=== PATIENT | male | born 1955 | race Caucasian/White ===

== ENCOUNTER 2023-06-16 07:38 | Outpatient (OUT) | payer MEDICARE, OTHER, SELFPAY ==
--- NOTE | 2023-06-16 08:00 | CA_ITS ---
Patient Name: TORSTEN HARMON MR#: [id number] : 1955 Exam Date: 06/16/2023 Ordering Doctor: STANFORD CANTU ECHOCARDIOGRAM REPORT PROCEDURE: CA ECHO DOPPLER COMPLETE INDICATIONS: Heart failure with reduced ejection fraction, CABGx5, AICD, hypertension COMPARISON: None. DESCRIPTION: COMPLETE ECHOCARDIOGRAM Real-time transthoracic echocardiography with 2D, M-mode, spectral and color flow Doppler performed. QUALITY: Technical quality was good. 73 , 238#, BSA 2.32 m2, BP 98/52 LEFT VENTRICLE: Mild dilatation. Proximal septal hypertrophy (sigmoid septum). LV EF: Global left ventricular systolic function is difficult to assess but appears preserved; visually estimated ejection fraction is 50 to 55%. No significant wall motion abnormalities. DIASTOLIC: Diastolic function is indeterminate. ATRIAL SEPTUM: Visually appears intact. LEFT ATRIUM: Mild dilatation. RIGHT ATRIUM: Moderate dilatation. RIGHT VENTRICLE: Normal chamber size. Normal systolic function. Pacer wire present. TRICUSPID VALVE: Normal mobility and thickness. No stenosis with mild to moderate regurgitation. Doppler studies reveal mildly (35-45) elevated right sided pressures. RSVP 41 mmHg MITRAL VALVE: Normal mobility and thickness. No evidence of mitral valve stenosis. There is no mitral annular calcification. Trivial mitral regurgitation. AORTIC VALVE: Normal trileaflet appearance. No visible sclerosis. Normal leaflet mobility. No evidence of aortic valve stenosis. Trivial aortic regurgitation. AORTIC ROOT: Normal diameter and appearance. PULMONIC VALVE: Normal thickness and mobility. No stenosis. Trivial regurgitation. PERICARDIUM: Anterior free space; trivial effusion versus fat pad IVC: Collapses with inspirations. IVC is dilated (2.3 cm) CONCLUSION: 1. Global left ventricular systolic function is difficult to assess but appears preserved; visually estimated ejection fraction is 50 to 55% 2. Normal right ventricular size and systolic function 3. Biatrial enlargement 4. Diastolic function is indeterminate 5. No significant valvular abnormalities 6. Anterior free space; trivial effusion versus fat pad Adult Echocardiography Procedure Report Left Ventricle LVEDD (3.7 - 5.6 cm): 5.94 cm LVESD (2.2 - 4.0 cm): 3.88 cm LVIVS thickness (0.6 - 1.2 cm): 1.43 cm LVPW thickness (0.5 - 1.0 cm): 0.88 cm e': 0.13 m/s E - e': 3.57 LVOT Max Gradient: 2.87 mm[Hg] LVOT Area (cm2): 0.85 m/s Peak Velocity (LVOT): 0.85 m/s Mean Velocity (LVOT): 0.60 m/s LVOT Diameter 2.72 cm Left Atrium LA Volume Index (2D A2C): 38.67 ml/m2 Left Atrium Systolic Dimension: 4.31 cm Mitral Valve MV E to A Ratio: 0.72, 0.74 Mitral Valve A-Wave Peak Velocity: 0.62 m/s Mitral Valve E-Wave Peak Velocity: 0.46 m/s Right Ventricle Aorta AO Root Diam: 3.64 cm Ascending Ao Diam: 2.81 cm Aortic Valve AoV Area (Peak Grupo): 4.21 cm2, 4.21 cm2 AoV Area (VTI): 4.11 cm2, 4.11 cm2 Peak Velocity(Antegrade Flow): 1.17 m/s Peak Gradient(Antegrade Flow): 5.50 mm[Hg] Mean Velocity(Antegrade Flow): 0.81 m/s Mean Gradient(Antegrade Flow): 3.00 mm[Hg] Velocity Time Integral: 21.98 cm Tricuspid Valve Peak Velocity (Regurgitant Flow): 2.88 m/s, 2.82 m/s Pulmonic Valve Peak Velocity: 1.09 m/s Peak Gradient: 3.04 mm[Hg], 6.78 mm[Hg] Right Atrium Right Atrium Systolic Pressure: 88.53 ml, 88.53 ml Dictated by: Juanjose Parada M.D. on 06/18/2023 at 13:46 Approved by: Juanjose Parada M.D. on 06/18/2023 at 13:50
== END 2023-06-16 07:39 | disposition home or self-care (01) ==
PROVIDERS: PCP Family Medicine; Visit Provider Nurse Practitioner
DX: I50.22 Chronic systolic (congestive) heart failure (principal)
CPT/HCPCS: 93306

== ENCOUNTER 2023-06-24 13:55 | Emergency (ER) | payer MEDICARE, OTHER, SELFPAY ==
[2023-06-24] VITALS (29 sets, daily range): BP systolic 70–113; BP diastolic 41–88; PULSE 99–128; RESP 13–37; TEMP 36.5; O2SAT 90–95; BMI 32.3
--- NOTE | 2023-06-24 14:06 | ECG_ITS ---
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
[2023-06-24] MEDS: 0.9 % SODIUM CHLORIDE 1,000 ML 1000 ML IV (14:15)
--- NOTE | 2023-06-24 14:18 | ED_ITS ---
HPI - SOB/Dyspnea General Chief Complaint: Shortness of Breath/Dyspnea Stated Complaint: SHORTNESS OF BREATH Time Seen by Provider: 06/24/23 14:06 Source: patient Mode of arrival: Wheelchair Limitations: no limitations History of Present Illness HPI Narrative: Patient is a 67-year-old male who presents to the emergency department for the evaluation of increasing shortness of breath over the last 2 days. Patient has had ongoing issues for the last several weeks with elevated heart rate, low blood pressure. He was taken off of his carvedilol and Entresto by his PCP but the nurse practitioner at [facility] cardiology instructed him to get back on his carvedilol and Entresto. He stopped the carvedilol 2 days ago for low blood pressures at home. He feels dizzy when he stands. He denies chest pain, sputum production or hemoptysis. He has had no objective fevers, vomiting or diarrhea. He denies leg swelling. He had an echo done last week at this facility that was performed routine. He has a history of coronary artery disease and vessel Bypass. He has never been a smoker. He denies any known history of COPD, asthma or emphysema. At time of initial interview, patient is noted to be tachycardic, hypotensive, awake alert and oriented. Related Data Home Medications ?Medication ?Instructions ?Recorded ?Confirmed apixaban 5 mg tablet (Eliquis) 5 mg PO BID 06/24/23 06/24/23 atorvastatin 20 mg tablet 20 mg PO BEDTIME 06/24/23 06/24/23 bumetanide 2 mg tablet 2 mg PO BID 06/24/23 06/24/23 carvedilol 3.125 mg tablet 3.125 mg PO BID 06/24/23 06/24/23 potassium chloride 20 mEq 20 meq PO DAILY 06/24/23 06/24/23 tablet,extended release(part/cryst) Allergies Allergy/AdvReac Type Severity Reaction Status Date / Time No Known Drug Allergies Allergy Verified 06/24/23 14:00 Review of Systems ROS Constitutional Denies: fever or chills Ears, nose, mouth, and throat Denies: throat pain or nasal congestion Cardiovascular Denies: chest pain Respiratory Reports: shortness of breath and cough Gastrointestinal Denies: nausea, vomiting or diarrhea Musculoskeletal Denies: back pain Integumentary/Breast Denies: rash Neurological Denies: headache Hematologic/Lymphatic Denies: easy bruising or easy bleeding Exam Constitutional Vital Signs, click to edit/add: Last Vital Signs Temp 97.7 F 06/24/23 14:00 Pulse 105 H 06/24/23 18:00 Resp 24 06/24/23 18:00 BP 113/72 06/24/23 18:00 Pulse Ox 95 06/24/23 18:00 O2 Del Method Nasal Cannula 06/24/23 14:54 O2 Flow Rate 4 06/24/23 14:54 Course Vital Signs Vital signs: Vital Signs Temperature 97.7 F 06/24/23 14:00 Pulse Rate 125 H 06/24/23 14:00 Respiratory Rate 24 06/24/23 14:00 Blood Pressure 70/41 L 06/24/23 14:00 Pulse Oximetry 91 L 06/24/23 14:00 Oxygen Delivery Method Room Air 06/24/23 14:00 Temperature 97.7 F 06/24/23 14:00 Pulse Rate 105 H 06/24/23 18:00 Respiratory Rate 24 06/24/23 18:00 Blood Pressure 113/72 06/24/23 18:00 Pulse Oximetry 95 06/24/23 18:00 Oxygen Delivery Method Nasal Cannula 06/24/23 14:54 Oxygen Delivery Flow Rate 4 06/24/23 14:54 MDM - SOB/Dyspnea MDM Narrative Medical decision making narrative: On arrival to the emergency department, patient was hypoxic and hypotensive with tachycardia. 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 Lab studies were obtained, breathing treatment given and the patient was placed on oxygen of 4 L by nasal cannula. He had improvement of his oxygen levels, he was noted to have wheezing on exam and was given albuterol and IV fluids for blood pressure control. Patient's blood pressure improved significantly on reevaluation. Sepsis labs were ordered including blood cultures, urine specimen. Chest x-ray shows multifocal pneumonia in the right middle and lower lobes. Patient was treated with IV Levaquin. He remained mildly tachycardic in the ER but did have significant improvement of his blood pressure. He remains awake, alert and oriented in no respiratory distress. Lactic acid is elevated, procalcitonin is normal. Patient had an elevated D-dimer, he was sent for CT angio of the chest. This result shows that the patient has A large mass in the right middle lobe. This was related to him by attending physician. Patient understands that he will need to be transferred to tertiary care facility with pulmonology, cardiothoracic surgery as needed and oncology. This is a new diagnosis for him. He request transfer to [facility]. Transfer line was contacted At [phone]. 1900: Stable vital signs at this time, he is resting comfortably. Repeat troponin and lactic acid were obtained and troponin is normal, lactic acid has decreased. Patient's blood pressure remained stable, improved. Patient was accepted by Dr. Berg, Hospitalist service at [facility]. Critical care time 35-minute Medical Records Attestation: I reviewed the patient's medical records. Lab Data Attestation: I reviewed the patient's lab results. Labs: Lab Results 06/24/23 06/24/23 06/24/23 Range/Units 14:10 14:22 17:30 WBC 22.9 H (4.0-11.0) 10^3/uL RBC 4.59 L (4.70-6.10) 10^6/uL Hgb 13.7 L (14.0-18.0) g/dL Hct 42.8 (42.0-54.0) % MCV 93.2 (80.0-94.0) fL MCH 29.8 (25.9-34.0) pg MCHC 32.0 (29.9-35.2) g/dL RDW 16.7 H (11.0-15.0) % Plt Count 572 H (150-450) 10^3/uL MPV 9.7 (9.5-13.5) fL Seg Neuts % (Manual) 69.0 Lymphocytes % (Manual) 13.0 L (20.5-60.0) % Monocytes % (Manual) 18.0 H (1.7-12.0) % Eosinophils % (Manual) 0.0 L (0.9-7.0) % Basophils % (Manual) 0.0 L (0.2-2.0) % Neutrophils # (Manual) 15.80 H (1.4-6.5) 10^3/uL Lymphocytes # (Manual) 2.97 (1.20-3.80) 10^3/uL Monocytes # (Manual) 4.12 H (0.30-0.80) 10^3/uL Eosinophils # (Manual) 0.00 (0.00-0.70) 10^3/uL Basophils # (Manual) 0.00 (0.00-0.10) 10^3/uL PT 15.4 H (9.0-11.6) sec INR 1.49 D-Dimer 6.20 H* (<=0.59) mg/L FEU VBG pH 7.433 H (7.330-7.430) VBG pCO2 35.1 L (40.0-52.0) mmHg Sodium 132 L (136-145) mmol/L Potassium 3.8 (3.5-5.1) mmol/L Chloride 96 L (98-107) mmol/L Carbon Dioxide 22.6 (21.0-32.0) mmol/L Anion Gap 17.2 BUN 23.0 H (7.0-18.0) mg/dL Creatinine 1.09 (0.70-1.30) mg/dL Est GFR ( Amer) >60 (>=60) Est GFR (Non-Af Amer) >60 (>=60) BUN/Creatinine Ratio 21.1 Glucose 125 H (74-106) mg/dL Lactate 4.4 H* 2.3 H* (0.4-2.0) mmol/L Calcium 9.1 (8.5-10.1) mg/dL Magnesium 1.8 (1.8-2.4) mg/dL Total Bilirubin 0.7 (0.2-1.0) mg/dL AST 42 H (15-37) U/L ALT 42 (16-63) U/L Alkaline Phosphatase 154 H (46-116) U/L Troponin I High Sens 26.4 19.7 (4.0-76.1) pg/mL NT-Pro-B Natriuret Pep 535.0 (<=900.0) pg/mL Total Protein 6.6 (6.4-8.2) g/dL Albumin 1.5 L (3.4-5.0) g/dL Globulin 5.1 g/dL Albumin/Globulin Ratio 0.3 Procalcitonin 0.19 (0.00-0.50) ng/mL Adenovirus (PCR) Not detected (NOT DETECTE) C. pneumoniae DNA (PCR) Not detected (NOT DETECTE) Coronavirus Type OC43 Not detected (NOT DETECTE) Coronavirus Type HKU1 Not detected (NOT DETECTE) Coronavirus Type 229E Not detected (NOT DETECTE) Coronavirus Type NL63 Not detected (NOT DETECTE) Human Metapneumovir PCR Not detected (NOT DETECTE) M. pneumoniae (PCR) Not detected (NOT DETECTE) Parainfluenza PCR Not detected (NOT DETECTE) Parainfluenza 2 (PCR) Not detected (NOT DETECTE) Parainfluenza 3 (PCR) Not detected (NOT DETECTE) Parainfluenza 4 (PCR) Not detected (NOT DETECTE) RSV (RT-PCR) Not detected (NOT DETECTE) Entero/Rhino (PCR) Not detected (NOT DETECTE) SARS-CoV-2 (PCR) Not detected (NOT DETECTE) Bordetella pertussis (PCR) Not detected (NOT DETECTE) B parapertussis DNA PCR Not detected (NOT DETECTE) Influenza Type A (PCR) Not detected (NOT DETECTE) Influenza Type B (PCR) Not detected (NOT DETECTE) Imaging Data CT scan - chest: Attestation: I have reviewed the pertinent imaging results. Radiologist's impression: ITS Impressions Chest X-Ray 06/24/23 14:32 IMPRESSION: 1. Suspect moderate right middle lobe and mild left basilar infiltrates/pneumonia. 2. Suspect small bilateral pleural effusions. Electronically authenticated by: GIGI MURRY Date: 06/24/2023 14:47 Chest CTA 06/24/23 17:24 IMPRESSION: No CT findings to suggest pulmonary embolism. Large masslike lesions at the right hilar and subcarinal region compatible with malignancy, with numerous, pathologically enlarged mediastinal, upper abdominal and paraesophageal lymph nodes seen. Moderate right pleural effusion. Electronically authenticated by: SONDRA SEAY Date: 06/24/2023 18:10 ECG Data Attestation: I personally reviewed and interpreted this ECG as follows: (Sinus tachycardia at a rate of 127, occasional PVC, no acute ST elevation. EKG reviewed by attending physician) Critical Care Time Critical Care Time Critical Care Time: Yes Total Critical Care Time: 35 Attestation: 35 min Of critical care time for treatment of sepsis, fluid resuscitation, transfer to tertiary care facility Discharge Plan Discharge Chief Complaint: Shortness of Breath/Dyspnea Clinical Impression: Sepsis due to pneumonia, Mass of right lung, Hypoxia Patient Disposition: [facility] Time of Disposition Decision: 19:14 Discharge Location: [facility] Condition: Good Mode of Transportation: EMS Prescriptions / Home Meds: No Action atorvastatin 20 mg tablet 20 mg PO BEDTIME bumetanide 2 mg tablet 2 mg PO BID carvedilol 3.125 mg tablet 3.125 mg PO BID potassium chloride 20 mEq tablet,ER particles/crystals 20 meq PO DAILY Print Language: Ivorian Referrals: CHESTER HOBBS [Primary Care Provider] - 1 week
[2023-06-24 14:27] LABS: Hematocrit 42.8 % (42.0-54.0); Hemoglobin 13.7 g/dL (14.0-18.0); Mean Corpuscular Hemoglobin 29.8 pg (25.9-34.0); Mean Corpuscular Volume 93.2 fL (80.0-94.0); Mean Platelet Volume 9.7 fL (9.5-13.5); Platelet Count 572 10^3/uL (150-450); Red Blood Count 4.59 10^6/uL (4.70-6.10); Red Cell Distribution Width 16.7 % (11.0-15.0); White Blood Count 22.9 10^3/uL (4.0-11.0)
--- NOTE | 2023-06-24 14:32 | XR_ITS ---
The [address] [address] Patient Name: TORSTEN HARMON MRN: [id number] date: 1955 Sex: M Assigned Patient Location: ER Current Patient Location: ER Accession/Order Number: [id number] Exam Date: 06/24/2023 14:27 Report Date: 06/24/2023 14:47 At the request of: SELIN CHATMAN Procedure: XR chest 1V EXAMINATION: XR chest 1V HISTORY: shortness of breath COMPARISON: XR chest 12/11/2006 FINDINGS: LUNGS: Dense opacities within the medial right lung base. Mild haziness within left lung base obscuring the heart margin. VASCULATURE: No increased pulmonary vasculature. PLEURA: Blunting of costophrenic angles bilaterally. CARDIAC: No cardiomegaly or cardiac silhouette abnormality. MEDIASTINUM: No visible mass or adenopathy. BONES: No fracture or visible bone lesion. OTHER: Cardiac pacer/AICD. Prior sternotomy. XR/XR chest 1V IMPRESSION: 1. Suspect moderate right middle lobe and mild left basilar infiltrates/pneumonia. 2. Suspect small bilateral pleural effusions. Electronically authenticated by: GIGI MURRY Date: 06/24/2023 14:47
[2023-06-24 14:36] LABS: PCO2 VBG 35.1 mmHg (40.0-52.0); pH VBG 7.433 (7.330-7.430)
[2023-06-24] MEDS: ALBUTEROL SULFATE 2.5 MG/3 ML VIAL NEB IH (14:36)
[2023-06-24 14:51] LABS: Adenovirus NOT DETECTED (NOT DETECTE); Bordetella parapertussis NOT DETECTED (NOT DETECTE); Coronavirus 229E NOT DETECTED (NOT DETECTE); Coronavirus HKU1 NOT DETECTED (NOT DETECTE); Coronavirus NL63 NOT DETECTED (NOT DETECTE); Coronavirus OC43 NOT DETECTED (NOT DETECTE); Human Metapneumovirus NOT DETECTED (NOT DETECTE); Human Rhinovirus/Enterovirus NOT DETECTED (NOT DETECTE); Influenza A NOT DETECTED (NOT DETECTE); Influenza B NOT DETECTED (NOT DETECTE); Mycoplasma pneumoniae NOT DETECTED (NOT DETECTE); Parainfluenza Virus 1 NOT DETECTED (NOT DETECTE); Parainfluenza Virus 2 NOT DETECTED (NOT DETECTE); Parainfluenza Virus 3 NOT DETECTED (NOT DETECTE); Parainfluenza Virus 4 NOT DETECTED (NOT DETECTE); Respiratory Syncytial Virus NOT DETECTED (NOT DETECTE); SARS-CoV-2 NOT DETECTED (NOT DETECTE)
[2023-06-24 14:54] LABS: Lymphocytes Absolute Manual 2.97 10^3/uL (1.20-3.80); Monocytes Absolute Manual 4.12 10^3/uL (0.30-0.80)
[2023-06-24 15:00] LABS: Alanine Aminotransferase 42 U/L (16-63); Albumin Globulin Ratio 0.3; Albumin Level 1.5 g/dL (3.4-5.0); Alkaline Phosphatase 154 U/L (46-116); Anion Gap 17.2; Aspartate Amino Transferase 42 U/L (15-37); BUN Creatinine Ratio 21.1; Bilirubin Total 0.7 mg/dL (0.2-1.0); Calcium 9.1 mg/dL (8.5-10.1); Carbon Dioxide 22.6 mmol/L (21.0-32.0); Chloride 96 mmol/L (98-107); Estimated GFR (African America >60 (>=60); Estimated GFR (Non-African Ame >60 (>=60); Globulin 5.1 g/dL; Glucose 125 mg/dL (74-106); Magnesium 1.8 mg/dL (1.8-2.4); Potassium 3.8 mmol/L (3.5-5.1); Sodium 132 mmol/L (136-145); Total Protein 6.6 g/dL (6.4-8.2); Troponin I High Sensitivity 26.4 pg/mL (4.0-76.1)
[2023-06-24 15:01] LABS: Lactate/Lactic Acid 4.4 mmol/L (0.4-2.0)
[2023-06-24 15:05] LABS: INR 1.49; Prothrombin Time 15.4 sec (9.0-11.6)
[2023-06-24] MEDS: LEVOFLOXACIN IN DEXTROSE 5 % 750 MG/150 ML IV.SOLN 100 MG IV (15:16)
[2023-06-24 15:23] LABS: PROCALCITONIN 0.19 ng/mL (0.00-0.50)
[2023-06-24] MEDS: 0.9 % SODIUM CHLORIDE 1,000 ML 500 ML IV (16:17)
--- NOTE | 2023-06-24 17:24 | CT_ITS ---
[address] [address] Patient Name: TORSTEN HARMON MRN: [id number] date: 1955 Sex: M Assigned Patient Location: ER Current Patient Location: Accession/Order Number: [id number] Exam Date: 06/24/2023 17:15 Report Date: 06/24/2023 18:10 At the request of: SELIN CHATMAN Procedure: CT angio chest EXAM: CT angio chest HISTORY: elevated d dimer COMPARISON: None. TECHNIQUE: CT angiography of the chest was performed without IV contrast followed by IV contrast, including 3D post processing CTA image reconstruction. CT dose reduction technique was used, including Automated Exposure Control. IV CONTRAST: 99 mL Omnipaque 350 FINDINGS: Diagnostic quality: Adequate There is no evidence for pulmonary embolism. The heart is not enlarged. There is heavy coronary calcification. There is no pericardial effusion. There is a moderate right-sided pleural effusion. There is a large right hilar mass, measuring approximately 6.0 x 6.3 cm, with mass effect on the hilar airways and the right-sided main pulmonary veins. There is a markedly enlarged, masslike subcarinal lymph node having a short axis diameter of 4.3 cm. Numerous lower periesophageal, and paratracheal as well as prevascular mediastinal lymph nodes are seen. There are abnormally enlarged lymph nodes along the internal mammary chain. A right paratracheal lymph node has a short axis diameter of 2.4 cm. No acute process identified in the visualized upper abdomen. The spleen appears absent. No destructive osseous changes are seen. CT/CT angio chest IMPRESSION: No CT findings to suggest pulmonary embolism. Large masslike lesions at the right hilar and subcarinal region compatible with malignancy, with numerous, pathologically enlarged mediastinal, upper abdominal and paraesophageal lymph nodes seen. Moderate right pleural effusion. Electronically authenticated by: SONDRA SEAY Date: 06/24/2023 18:10
[2023-06-24 17:57] LABS: Troponin I High Sensitivity 19.7 pg/mL (4.0-76.1)
[2023-06-24 17:59] LABS: Lactate/Lactic Acid 2.3 mmol/L (0.4-2.0)
[2023-06-24 20:10] LABS: Bilirubin Urine NEGATIVE (NEGATIVE); Blood Urine NEGATIVE (NEGATIVE); Clarity Urine CLEAR (CLEAR); Color Urine DK. YELLOW (YELLOW); Glucose Urine UA NEGATIVE (NEGATIVE); Ketones Urine NEGATIVE (NEGATIVE); Leukocyte Esterase Urine NEGATIVE (NEGATIVE); Nitrite Urine NEGATIVE (NEGATIVE); Protein Urine NEGATIVE (NEG/TRACE); Specific Gravity Urine <=1.005 (1.005-1.025); pH Urine 5.5 (5.0-9.0)
[2023-06-24 20:13] LABS: Urine Microscopic Indicated NO
[2023-06-24] MEDS: 0.9 % SODIUM CHLORIDE 1,000 ML 200 ML IV (21:50)
[2023-06-25 00:02] VITALS: BP 112/66; PULSE 101; RESP 26; O2SAT 95
== END 2023-06-25 00:02 | disposition short-term general hospital (02) ==
PROVIDERS: Physician Assistant; Emergency Provider Emergency Medicine Emergency Medical Services; PCP Family Medicine
DX: A41.9 Sepsis, unspecified organism (principal); J18.9 Pneumonia, unspecified organism; R91.8 Other nonspecific abnormal finding of lung field; R09.02 Hypoxemia; Z20.822 Contact with and (suspected) exposure to COVID-19; Z79.01 Long term (current) use of anticoagulants; Z79.899 Other long term (current) drug therapy; I25.10 Atherosclerotic heart disease of native coronary artery without angina pectoris; Z95.1 Presence of aortocoronary bypass graft
CPT/HCPCS: 0202U; 36415; 71045; 71275; 80053; 81003; 82800; 83605; 83735; 83880; 84145; 84484; 85007; 85027; 85378; 85610; 87040; 93005; 94640; 96365; 96366; 99285; Q9967

== ENCOUNTER 2023-09-01 09:59 | Emergency (ER) | payer MEDICARE, OTHER, SELFPAY ==
[2023-09-01 10:11] VITALS: BP 105/76; PULSE 99; TEMP 37; O2SAT 96; BMI 27.8
--- NOTE | 2023-09-01 10:14 | ECG_ITS ---
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
--- NOTE | 2023-09-01 10:14 | XR_ITS ---
The [address] [address] Patient Name: TORSTEN HARMON MRN: [id number] date: 1955 Sex: M Assigned Patient Location: ER Current Patient Location: ED.MAIN Accession/Order Number: [id number] Exam Date: 09/01/2023 10:30 Report Date: 09/01/2023 10:49 At the request of: MODE PACKER Procedure: XR chest 1V EXAMINATION: XR chest 1V HISTORY: a fib-new COMPARISON: XR chest 06/24/2023 FINDINGS: LUNGS: Mild right perihilar spiculated masslike opacity and trace amount of stranding within left lung base. VASCULATURE: No increased pulmonary vasculature. PLEURA: Blunting of left lateral costophrenic angle suggestive of pleural fluid. CARDIAC: No cardiomegaly or cardiac silhouette abnormality. MEDIASTINUM: No visible mass or adenopathy. BONES: No fracture or visible bone lesion. OTHER: Stable cardiac pacer. Interval placement of Port-A-Cath within right chest wall. XR/XR chest 1V IMPRESSION: 1. Right perihilar spiculated mass approximately 3.5 cm diameter; smaller than seen on prior chest x-ray. 2. Low lung volume examination with suspected small left pleural effusion and trace amount of left basilar atelectasis. Electronically authenticated by: GIGI MURRY Date: 09/01/2023 10:49
--- NOTE | 2023-09-01 10:17 | ED_ITS ---
HPI HPI - General Adult General Chief complaint: Arrhythmia/Palpitations Stated complaint: fast heart rate Time Seen by Provider: 09/01/23 10:02 Mode of arrival: walk-in Limitations: no limitations History of Present Illness HPI narrative: Patient presents to ED complaining of arrhythmia. He has a pacemaker defibrillator device and they interrogated it and said his heart rate was in the 140s and he was in A-fib. He said they have interrogated the pacer 1 other time recently and he was found to have some episodes of A-fib as well. Upon arrival to ED he says he feels completely fine and has no complaints. No dizziness no chest pain no shortness of breath. His heart rate is now between 95 and 105. He is already on Eliquis and does take carvedilol daily. He was told to come down to the ER for further evaluation just because his heart rate was elevated at the time that they checked on him. Otherwise he has no other complaints. He is on chemo has a port in the chest and history of lymphoma Related Data Home Medications ?Medication ?Instructions ?Recorded ?Confirmed apixaban 5 mg tablet (Eliquis) 5 mg PO BID 06/24/23 06/24/23 aspirin 81 mg tablet,delayed 81 mg PO DAILY 06/24/23 06/24/23 release (Adult Aspirin Regimen) atorvastatin 20 mg tablet 20 mg PO BEDTIME 06/24/23 06/24/23 bumetanide 2 mg tablet 2 mg PO BID 06/24/23 06/24/23 carvedilol 3.125 mg tablet 3.125 mg PO BID 06/24/23 06/24/23 potassium chloride 20 mEq 20 meq PO DAILY 06/24/23 06/24/23 tablet,extended release(part/cryst) sacubitril 24 mg-valsartan 26 mg 0.5 tab PO BID 06/24/23 06/24/23 tablet (Entresto) Allergies Allergy/AdvReac Type Severity Reaction Status Date / Time No Known Drug Allergies Allergy Verified 09/01/23 10:15 Opioid HPI Opioid Management Most Recent Opioid Data: No Data to Display Review of Systems ROS Status of ROS 10 or more systems reviewed and unremark able except as noted in history and below Exam Narrative Exam Narrative: Time Seen: [] Vital Signs: [Per nurse's notes.] General: [Alert] Skin: [Warm, dry, no rash.] Head: [Normocephalic, atraumatic.] Neck: [Supple, trachea midline.] Eye: [Pupils are equal, round and reactive to light, extraocular movements are intact, normal conjunctiva.] Ears, nose, mouth and throat: oral mucosa moist. Cardiovascular: Irregularly irregular, rate controlled, no murmur.] Respiratory: [Lungs are clear to auscultation, respirations are non-labored, breath sounds are equal.] Chest wall: [No tenderness, no deformity.] Gastrointestinal: [Soft, nontender, non distended, normal bowel sounds.]Previous surgical scars on chest and abdomen MSK: 5 out of 5 muscle strength x 4 extremities no calf pain or edema Lymphatics: [No lymphadenopathy.] Psychiatric: [Cooperative, appropriate mood & affect.] Neurological: [Alert and oriented to person, place, time, and situation, no focal neurological deficit observed.] Constitutional Vital Signs, click to edit/add: Last Vital Signs Temp 98.6 F 09/01/23 10:11 Pulse 99 H 09/01/23 10:11 Resp 18 09/01/23 10:11 BP 105/76 09/01/23 10:11 Pulse Ox 96 09/01/23 10:11 O2 Del Method Room Air 09/01/23 10:11 Course Vital Signs Vital signs: Vital Signs Temperature 98.6 F 09/01/23 10:11 Pulse Rate 99 H 09/01/23 10:11 Respiratory Rate 18 09/01/23 10:11 Blood Pressure 105/76 09/01/23 10:11 Pulse Oximetry 96 09/01/23 10:11 Oxygen Delivery Method Room Air 09/01/23 10:11 Temperature 98.6 F 09/01/23 10:11 Pulse Rate 99 H 09/01/23 10:11 Respiratory Rate 18 09/01/23 10:11 Blood Pressure 105/76 09/01/23 10:11 Pulse Oximetry 96 09/01/23 10:11 Oxygen Delivery Method Room Air 09/01/23 10:11 Medical Decision Making MDM Narrative Medical decision making narrative: Patient's rate here has not really been much over 100. He is already on Eliquis and he already takes metoprolol. Outpatient follow-up with EP and cardiology as appropriate at this time. I spoke to Linda Galdamez and she agreed with outpatient management as long as his labs looked okay since he is already anticoagulated and he is already on a beta-azul. Patient has no complaints and he is comfortable with care plan for home and following up outpatient. Differential Diagnosis Differential Diagnosis: A-fib, ACS Electrolyte abnormality Medical Records Medical records reviewed: Yes I reviewed the patient's medical records Lab Data Lab results reviewed: Yes I reviewed the patient's lab results Labs: Lab Results 09/01/23 Range/Units 10:30 WBC 12.3 H (4.0-11.0) 10^3/uL RBC 3.50 L (4.70-6.10) 10^6/uL Hgb 11.0 L (14.0-18.0) g/dL Hct 34.9 L (42.0-54.0) % MCV 99.7 H (80.0-94.0) fL MCH 31.4 (25.9-34.0) pg MCHC 31.5 (29.9-35.2) g/dL RDW 24.8 H (11.0-15.0) % Plt Count 280 (150-450) 10^3/uL MPV 10.5 (9.5-13.5) fL Seg Neuts % (Manual) 48.0 Band Neutrophils % 1.0 (0-5) % Lymphocytes % (Manual) 38.0 (20.5-60.0) % Monocytes % (Manual) 10.0 (1.7-12.0) % Eosinophils % (Manual) 2.0 (0.9-7.0) % Basophils % (Manual) 1.0 (0.2-2.0) % Neutrophils # (Manual) 5.90 (1.4-6.5) 10^3/uL Band Neutrophils # 0.1 (0.0-0.3) 10^3/uL Lymphocytes # (Manual) 4.67 H (1.20-3.80) 10^3/uL Monocytes # (Manual) 1.23 H (0.30-0.80) 10^3/uL Eosinophils # (Manual) 0.24 (0.00-0.70) 10^3/uL Basophils # (Manual) 0.12 H (0.00-0.10) 10^3/uL Sodium 139 (136-145) mmol/L Potassium 4.0 (3.5-5.1) mmol/L Chloride 101 (98-107) mmol/L Carbon Dioxide 29.2 (21.0-32.0) mmol/L Anion Gap 12.8 BUN 11.0 (7.0-18.0) mg/dL Creatinine 0.53 L (0.70-1.30) mg/dL Est GFR ( Amer) >60 (>=60) Est GFR (Non-Af Amer) >60 (>=60) BUN/Creatinine Ratio 20.8 Glucose 108 H (74-106) mg/dL Calcium 7.8 L (8.5-10.1) mg/dL Total Bilirubin 0.6 (0.2-1.0) mg/dL AST 21 (15-37) U/L ALT 18 (16-63) U/L Alkaline Phosphatase 87 (46-116) U/L Troponin I High Sens 12.2 (4.0-76.1) pg/mL Total Protein 5.3 L (6.4-8.2) g/dL Albumin 2.2 L (3.4-5.0) g/dL Globulin 3.1 g/dL Albumin/Globulin Ratio 0.7 Imaging Data Chest x-ray: Radiologist's impression: ITS Impressions Chest X-Ray 09/01/23 10:14 IMPRESSION: 1. Right perihilar spiculated mass approximately 3.5 cm diameter; smaller than seen on prior chest x-ray. 2. Low lung volume examination with suspected small left pleural effusion and trace amount of left basilar atelectasis. Electronically authenticated by: GIGI MURRY Date: 09/01/2023 10:49 ECG Data Attestation: I personally reviewed and interpreted this ECG as follows: Interpretation: EKG INTERPRETATION Time: []1038 Rate: []98 Rhythm: _ []A-fib ST segments: _ [] T waves: _ [] Ectopy: _ [] P wave/MN interval: _ [] QRS interval: _ [] QT interval: _ [] Comparison: _ [] Comparison EKG date: [] Performed by: [self]Occasional PVCs no acute ST elevation or depression Discharge Plan Discharge Stand Alone Forms: Portal Instructions Chief Complaint: Arrhythmia/Palpitations Clinical Impression: A-fib Patient Disposition: Home, Self-Care Time of Disposition Decision: 11:32 Condition: Good Mode of Transportation: Private Vehicle Prescriptions / Home Meds: No Action atorvastatin 20 mg tablet 20 mg PO BEDTIME bumetanide 2 mg tablet 2 mg PO BID carvedilol 3.125 mg tablet 3.125 mg PO BID potassium chloride 20 mEq tablet,ER particles/crystals 20 meq PO DAILY Eliquis 5 mg tablet 5 mg PO BID Entresto 24-26 mg tablet 0.5 tab PO BID aspirin [Adult Aspirin Regimen] 81 mg tablet,delayed release (DR/EC) 81 mg PO DAILY Print Language: Vietnamese Instructions: A-fib (Atrial Fibrillation) (ED) Referrals: CHESTER HOBBS [Primary Care Provider] - 1 week
[2023-09-01 10:53] LABS: Hematocrit 34.9 % (42.0-54.0); Mean Corpuscular HGB Conc 31.5 g/dL (29.9-35.2); Mean Corpuscular Hemoglobin 31.4 pg (25.9-34.0); Mean Corpuscular Volume 99.7 fL (80.0-94.0); Mean Platelet Volume 10.5 fL (9.5-13.5); Platelet Count 280 10^3/uL (150-450); Red Cell Distribution Width 24.8 % (11.0-15.0); White Blood Count 12.3 10^3/uL (4.0-11.0)
[2023-09-01 11:13] LABS: Basophils Abs Manual 0.12 10^3/uL (0.00-0.10); Eosinophils Absolute Manual 0.24 10^3/uL (0.00-0.70); Lymphocytes Absolute Manual 4.67 10^3/uL (1.20-3.80); Monocytes Absolute Manual 1.23 10^3/uL (0.30-0.80)
[2023-09-01 11:14] LABS: Alanine Aminotransferase 18 U/L (16-63); Albumin Globulin Ratio 0.7; Albumin Level 2.2 g/dL (3.4-5.0); Alkaline Phosphatase 87 U/L (46-116); Anion Gap 12.8; Aspartate Amino Transferase 21 U/L (15-37); BUN Creatinine Ratio 20.8; Band Neutrophils Absolute 0.1 10^3/uL (0.0-0.3); Bilirubin Total 0.6 mg/dL (0.2-1.0); Calcium 7.8 mg/dL (8.5-10.1); Carbon Dioxide 29.2 mmol/L (21.0-32.0); Chloride 101 mmol/L (98-107); Estimated GFR (African America >60 (>=60); Estimated GFR (Non-African Ame >60 (>=60); Globulin 3.1 g/dL; Glucose 108 mg/dL (74-106); Sodium 139 mmol/L (136-145); Total Protein 5.3 g/dL (6.4-8.2); Troponin I High Sensitivity 12.2 pg/mL (4.0-76.1)
[2023-09-01 11:42] VITALS: BP 108/77; PULSE 85; O2SAT 95
[2023-09-01] MEDS: HEPARIN SODIUM (PORCINE) PF LOCK FLUSH 500 UNIT/5 ML SYRINGE IV (12:07)
--- NOTE | 2023-09-01 14:17 | ECG_ITS ---
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
== END 2023-09-01 12:11 | disposition home or self-care (01) ==
PROVIDERS: Emergency Provider Emergency Medicine; PCP Family Medicine
DX: I48.91 Unspecified atrial fibrillation (principal); Z79.01 Long term (current) use of anticoagulants; Z79.899 Other long term (current) drug therapy; C85.90 Non-Hodgkin lymphoma, unspecified, unspecified site
CPT/HCPCS: 36415; 71045; 80053; 84484; 85007; 85027; 93005; 99285

== ENCOUNTER 2024-01-21 08:52 | Outpatient (OUT) | payer MEDICARE, OTHER, SELFPAY ==
[2024-01-21 09:04] LABS: Hemoglobin 14.8 g/dL (14.0-18.0)
--- NOTE | 2024-01-21 09:49 | RT_ITS ---
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 Findings were considered accurate and reproducible. No bronchodilator was administered due to normal spirometric values. No prior PFT available for comparison. Spirometry: -FEV1/FVC: Normal @ 84% -FEV1: Normal @ 98% -FVC: Normal @ 87% Lung volumes by plethysmography: -RV: Low normal @ 80% -TLC: Normal @ 85% Diffusion capacity: -DLCO: Moderate reduction @ 61% when corrected for Hb 14.8g/dL Flow-volume loop: -Normal shape Impressions: -Normal spirometry and lung volumes. Isolated moderate diffusion impairment. This pattern can be seen in, but not restricted to, cardiopulmonary vascular disorders, early interstitial lung disease, and early emphysema. Clinical correlation required. Electronically Signed On 01-27-2024 17:56:41 EDT by Joseluis Cook
== END 2024-01-21 08:53 | disposition home or self-care (01) ==
LOC: CARD 08:53
PROVIDERS: PCP Family Medicine; Visit Provider Internal Medicine Cardiovascular Disease
DX: Z79.899 Other long term (current) drug therapy (principal)
CPT/HCPCS: 36415; 85018; 94010; 94726; 94729

== ENCOUNTER 2024-02-16 09:36 | Emergency (ER) | payer MEDICARE, OTHER, SELFPAY ==
[2024-02-16 09:42] VITALS: BP 104/76; PULSE 102; TEMP 36.6; O2SAT 96; BMI 28.5
--- NOTE | 2024-02-16 09:46 | ED.GENADUL1 ---
HPI HPI - General Adult General Chief complaint: Epistaxis Stated complaint: NOSE BLEED Time Seen by Provider: 02/16/24 09:39 History of Present Illness HPI narrative: Chief Complaint: Patient presents with chief complaint of nosebleed which has been going on for a few weeks and it occurs off-and-on. He is usually able to control the nosebleed with local pressure. He went to a local hospital 2 days ago but the nosebleed had stopped and no further intervention was performed at the time. 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 He states that he normally runs a rapid heart rate. He is on digoxin among other meds. He does not report chest pain or shortness of breath at this time. Patient has a history of Hodgkin's disease and recently completed his chemotherapy course. Related Data Home Medications ?Medication ?Instructions ?Recorded ?Confirmed apixaban 5 mg tablet (Eliquis) 5 mg PO BID 06/24/23 02/16/24 atorvastatin 20 mg tablet 20 mg PO BEDTIME 06/24/23 02/16/24 bumetanide 2 mg tablet 1 mg PO BID PRN edema 06/24/23 02/16/24 potassium chloride 20 mEq 20 meq PO DAILY PRN edema 06/24/23 02/16/24 tablet,extended release(part/cryst) acetaminophen 325 mg tablet 650 mg PO BID PRN aches 02/16/24 02/16/24 (Tylenol) amiodarone 200 mg tablet 200 mg PO Q24H 02/16/24 02/16/24 calcium 600 mg capsule 600 mg PO DAILY 02/16/24 02/16/24 digoxin 250 mcg (0.25 mg) tablet 0.25 mg PO DAILY 02/16/24 02/16/24 docusate sodium 100 mg capsule 100 mg PO DAILY 02/16/24 02/16/24 (Colace) magnesium oxide 400 mg PO DAILY 02/16/24 02/16/24 metoprolol succinate 25 mg 12.5 mg PO DAILY 02/16/24 02/16/24 tablet,extended release 24 hr mirtazapine 15 mg tablet (Remeron) 15 mg PO DAILY 02/16/24 02/16/24 Allergies Allergy/AdvReac Type Severity Reaction Status Date / Time No Known Drug Allergies Allergy Verified 09/01/23 10:15 Opioid HPI Opioid Management Most Recent Opioid Data: No Data to Display Review of Systems ROS Status of ROS 10 or more systems reviewed and unremarkable except as noted in history and below PFSH PFSH Social History Little interest or pleasure in doing things: not at all Feeling down, depressed, or hopeless: not at all Exam Narrative Exam Narrative: Patient is afebrile and not distressed. Pale. He is does not have active nosebleed at this time. The rest of the HEENT exam is normal to inspection. Neck is supple. Lung sounds are clear to auscultation bilaterally with good air entry. Heart has a rapid rate with regular rhythm. Abdomen is soft nontender. Constitutional Vital Signs, click to edit/add: Last Vital Signs Temp 97.8 F 02/16/24 09:42 Pulse 60 02/16/24 13:30 Resp 18 02/16/24 13:30 BP 128/88 02/16/24 13:30 Pulse Ox 98 02/16/24 13:30 O2 Del Method Room Air 02/16/24 09:42 Course Vital Signs Vital signs: Vital Signs Temperature 97.8 F 02/16/24 09:42 Pulse Rate 102 H 02/16/24 09:42 Respiratory Rate 18 02/16/24 09:42 Blood Pressure 104/76 02/16/24 09:42 Pulse Oximetry 96 02/16/24 09:42 Oxygen Delivery Method Room Air 02/16/24 09:42 Temperature 97.8 F 02/16/24 09:42 Pulse Rate 60 02/16/24 13:30 Respiratory Rate 18 02/16/24 13:30 Blood Pressure 128/88 02/16/24 13:30 Pulse Oximetry 98 02/16/24 13:30 Oxygen Delivery Method Room Air 02/16/24 09:42 Medical Decision Making MDM Narrative Medical decision making narrative: Patient presents to the ED with a history of epistaxis that he has been experiencing off-and-on for the last few days. This is likely attributed to the fact that he takes Eliquis which he stopped a couple days ago. 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 Patient does not have any acute epistaxis today but I have cauterized the area of Kiesselbach's plexus on the left side which is likely the source of his nosebleed. His lab work is unremarkable and hemodynamics are stable. Follow-up instructions are provided and he is discharged in stable condition. Differential Diagnosis Differential Diagnosis: Epistaxis, hypocoagulable state Medical Records Medical records reviewed: Yes I reviewed the patient's medical records Lab Data Lab results reviewed: Yes I reviewed the patient's lab results Labs: Lab Results 02/16/24 Range/Units 10:30 WBC 15.8 H (4.0-11.0) 10^3/uL RBC 3.12 L (4.70-6.10) 10^6/uL Hgb 11.2 L (14.0-18.0) g/dL Hct 33.4 L (42.0-54.0) % MCV 107.1 H (80.0-94.0) fL MCH 35.9 H (25.9-34.0) pg MCHC 33.5 (29.9-35.2) g/dL RDW 17.0 H (11.0-15.0) % Plt Count 311 (150-450) 10^3/uL MPV 10.4 (9.5-13.5) fL Seg Neuts % (Manual) 57.0 (43.0-75.0) Band Neutrophils % 1.0 (0-5) % Lymphocytes % (Manual) 32.0 (20.5-60.0) % Monocytes % (Manual) 10.0 (1.7-12.0) % Eosinophils % (Manual) 0.0 L (0.9-7.0) % Basophils % (Manual) 0.0 L (0.2-2.0) % Neutrophils # (Manual) 9.00 H (1.4-6.5) 10^3/uL Band Neutrophils # 0.2 (0.0-0.3) 10^3/uL Lymphocytes # (Manual) 5.05 H (1.20-3.80) 10^3/uL Monocytes # (Manual) 1.58 H (0.30-0.80) 10^3/uL Eosinophils # (Manual) 0.00 (0.00-0.70) 10^3/uL Basophils # (Manual) 0.00 (0.00-0.10) 10^3/uL Poikilocytosis 1+ Acanthocytes (Spur) 1+ Sodium 143 (136-145) mmol/L Potassium 4.0 (3.5-5.1) mmol/L Chloride 105 (98-107) mmol/L Carbon Dioxide 28.3 (21.0-32.0) mmol/L Anion Gap 13.7 BUN 24.0 H (7.0-18.0) mg/dL Creatinine 0.95 (0.70-1.30) mg/dL Est GFR ( Amer) >60 (>=60 mL/min/1.73m^2) Est GFR (Non-Af Amer) >60 (>=60 mL/min/1.73m^2) BUN/Creatinine Ratio 25.3 Glucose 115 H (74-106) mg/dL Calcium 8.4 L (8.5-10.1) mg/dL Total Bilirubin 0.5 (0.2-1.0) mg/dL AST 22 (15-37) U/L ALT 26 (16-63) U/L Alkaline Phosphatase 66 (46-116) U/L Total Protein 6.0 L (6.4-8.2) g/dL Albumin 2.7 L (3.4-5.0) g/dL Globulin 3.3 g/dL Albumin/Globulin Ratio 0.8 Discharge Plan Discharge Chief Complaint: Epistaxis Clinical Impression: Epistaxis Patient Disposition: Home, Self-Care Time of Disposition Decision: 13:06 Condition: Good Mode of Transportation: Private Vehicle Prescriptions / Home Meds: No Action atorvastatin 20 mg tablet 20 mg PO BEDTIME bumetanide 2 mg tablet 1 mg PO BID PRN (Reason: edema) potassium chloride 20 mEq tablet,ER particles/crystals 20 meq PO DAILY PRN (Reason: edema) Patient Comments: only when taking bumex Eliquis 5 mg tablet 5 mg PO BID Patient Comments: on hold since 12/14 amiodarone 200 mg tablet 200 mg PO Q24H digoxin 250 mcg (0.25 mg) tablet 0.25 mg PO DAILY docusate sodium [Colace] 100 mg capsule 100 mg PO DAILY acetaminophen [Tylenol] 325 mg tablet 650 mg PO BID PRN (Reason: aches) mirtazapine [Remeron] 15 mg tablet 15 mg PO DAILY metoprolol succinate 25 mg tablet extended release 24 hr 12.5 mg PO DAILY calcium 600 mg capsule 600 mg PO DAILY magnesium oxide 400 mg magnesium capsule 400 mg PO DAILY Print Language: Latvian Instructions: Nosebleed (ED) Additional Instructions: Leonard Afrin in affected nostril twice a day for 3 days. If nosebleed recurs, clamp your nose and apply ice pack and if bleeding does not stop after 10 minutes, return to the ED. Return for worsening symptoms. Resume Kirt. Referrals: RYAN SILVA [Physician] - 02/18/24 CHESTER HOBBS [Primary Care Provider] - 02/19/24 Discharge Date/Time: 02/16/24 13:31 Procedures ED Procedure Instructions Procedures Procedures: Was sprayed in his nostrils. He was then examined and very pale looking clot was seen sitting in the left nasal cavity which she was able to blow out. On examination there is no sign of acute epistaxis. He does have some visible superficial capillaries in the region of Kiesselbach's plexus on the left side which I have cauterized with silver nitrate. During his stay in the ED he has not had any further nosebleed.
[2024-02-16] MEDS: OXYMETAZOLINE HCL 0.05% NASAL SPRAY 2 SPRAY NS (10:17)
[2024-02-16 10:48] LABS: Hematocrit 33.4 % (42.0-54.0); Hemoglobin 11.2 g/dL (14.0-18.0); Mean Corpuscular HGB Conc 33.5 g/dL (29.9-35.2); Mean Corpuscular Hemoglobin 35.9 pg (25.9-34.0); Mean Corpuscular Volume 107.1 fL (80.0-94.0); Mean Platelet Volume 10.4 fL (9.5-13.5); Platelet Count 311 10^3/uL (150-450); Red Blood Count 3.12 10^6/uL (4.70-6.10); White Blood Count 15.8 10^3/uL (4.0-11.0)
[2024-02-16 11:08] LABS: Alanine Aminotransferase 26 U/L (16-63); Albumin Globulin Ratio 0.8; Albumin Level 2.7 g/dL (3.4-5.0); Alkaline Phosphatase 66 U/L (46-116); Anion Gap 13.7; Aspartate Amino Transferase 22 U/L (15-37); BUN Creatinine Ratio 25.3; Bilirubin Total 0.5 mg/dL (0.2-1.0); Calcium 8.4 mg/dL (8.5-10.1); Carbon Dioxide 28.3 mmol/L (21.0-32.0); Chloride 105 mmol/L (98-107); Estimated GFR (African America >60 (>=60 mL/min/1.73m^2); Estimated GFR (Non-African Ame >60 (>=60 mL/min/1.73m^2); Globulin 3.3 g/dL; Glucose 115 mg/dL (74-106); Sodium 143 mmol/L (136-145)
[2024-02-16] MEDS: SILVER NITRATE APPLICATOR STICK 1 APPLIC TOPICAL (11:12)
[2024-02-16 11:15] LABS: Band Neutrophils Absolute 0.2 10^3/uL (0.0-0.3); Monocytes Absolute Manual 1.58 10^3/uL (0.30-0.80)
[2024-02-16 11:16] LABS: Lymphocytes Absolute Manual 5.05 10^3/uL (1.20-3.80); Poikilocytosis 1+
[2024-02-16 11:17] VITALS: BP 109/71; PULSE 86; O2SAT 98
[2024-02-16 11:17] LABS: Acanthocytes 1+
[2024-02-16 13:30] VITALS: BP 128/88; PULSE 60; O2SAT 98
== END 2024-02-16 13:31 | disposition home or self-care (01) ==
PROVIDERS: Emergency Provider Emergency Medicine; PCP Family Medicine
DX: R04.0 Epistaxis (principal); Z79.01 Long term (current) use of anticoagulants; Z95.1 Presence of aortocoronary bypass graft; C81.90 Hodgkin lymphoma, unspecified, unspecified site; Z79.60 Long term (current) use of unspecified immunomodulators and immunosuppressants; D68.2 Hereditary deficiency of other clotting factors
CPT/HCPCS: 30901; 36415; 80053; 85007; 85027; 99283

== ENCOUNTER 2024-02-17 00:06 | Emergency (ER) | payer MEDICARE, OTHER, SELFPAY ==
[2024-02-17 00:12] VITALS: BP 93/66; PULSE 119; TEMP 36.8; O2SAT 95; BMI 28.5
--- OUTSIDE RECORDS SUMMARY | 2024-02-17 00:43 | XMS_ITS | CCD ---
Author Organization [facility] Care Team Providers Care Business Development Professional Name Role Phone BLAKE LUCAS AM Unavailable Unavailable ESPERANZA EATON Unavailable Unavailable SELF, REFERRED Unavailable Unavailable TORSTEN YEPEZ Unavailable Unavailable TN Unavailable Unavailable BLAKE LUCAS AM Unavailable Unavailable TN Unavailable Unavailable UNKNOWN, PROVIDER Unavailable Unavailable TN Unavailable Unavailable INDIA BURKETT Unavailable Unavailable TN Unavailable Unavailable CT MACE Unavailable Unavailable TN Unavailable Unavailable TORSTEN YEPEZ Unavailable Unavailable SELF, REFERRED Unavailable Unavailable SELF, REFERRED Unavailable Unavailable BLANCO ESCOBAR Unavailable Unavailable BLANCO ESCOBAR Unavailable Unavailable SELF, REFERRED Unavailable Unavailable PHYSICIAN, DEFAULT Unavailable Unavailable PHYSICIAN, DEFAULT Unavailable Unavailable UNKNOWN, PROVIDER Unavailable Unavailable SAUD CERVANTES Unavailable Unavailable SAUD CERVANTES Unavailable Unavailable PAVDARIN MOLINA Unavailable Unavailable PHYSICIAN, DEFAULT Unavailable Unavailable PHYSICIAN, DEFAULT Unavailable Unavailable DARIN PEREA Unavailable Unavailable Mag Frank Attending Provider Chester Hobbs Primary Care Provider [phone] STANFORD CANTU Attending Unavailable STANFORD CANTU Consulting Unavailable STANFORD CANTU Admitting Unavailable REQUEST, DR NONE LISTED Primary Care Unavaila Chester Wilson. Primary Care Physician [phone] CHESTER HOBBS Referring Unavailable CHESTER HOBBS Primary Care Unavailable BERG, AVIJIT Admitting Unavailable BERG, AVIJIT Attending Unavailable REF PROV, NOT IN SYSTEM Referring Unavaila CHESTER Wilson Primary Care Unavailable TTH ONLY, [facility] Consulting Unavailable ANGIE RUIZ Consulting Unavailable BRADEN REIS Consulting Unavailable ARABELLA LORA Consulting Unavailable AIMEE ANDERSON Consulting Unavailable VENUS MENDEZ Attending Unavaila CHESTER Wilson Primary Care Unavailable OVIDIO RASMUSSEN Attending Unavailable OVIDIO RASMUSSEN Referring Unavailable CHESTER HOBBS Primary Care Unavailable AL-TKRIT, WOO M Referring Unavailable ROSS, CHESTER E Primary Care Unavailable BADFLETCHER BERNAL Referring Unavailable ROSS, CHESTER E Primary Care Unavailable HEENA CONDON Attending Unavailable HEENA CONDON Referring Unavailable ROSS, CHESTER E Primary Care Unavailable AIMEE MADRID Referring Unavailable ROSS, CHESTER E Primary Care Unavailable BEN ACANNA Referring Unavailable ROSS, CHESTER E Primary Care Unavailable CHICA CONTRERAS Attending Unavailable CHICA CONTRERAS Referring Unavailable ROSS, CHESTER E Primary Care Unavailable RYAN NEVAREZ Referring Unavailable ROSS, CHESTER E Primary Care Unavailable TAJ HAILE Attending Unavailable TAJ HAILE Referring Unavailable ROSS, CHESTER E Primary Care Unavailable MAYTE CENTENO Referring Unavailable TIFFANIE BAKER Referring Unavailable ROSS, CHESTER E Primary Care Unavailable SAMMY SPRAGUE Referring Unavailable ROSS, CHESTER E Primary Care Unavailable BRANDON BANUELOS Attending Unavailable BRANDON BANUELOS Referring Unavailable ROSS, CHESTER E Primary Care Unavailable HARRY BACON Referring Unavailable ROSS, CHESTER E Primary Care Unavailable JOHAN, CENTENO N Attending Unavailable JOHAN, CENTENO N Referring Unavailable JOHAN, CENTENO N Primary Care Unavailable Jose Enrique Ashby Admitting Unavailable Jacobo Prado MD Primary Care Provider [phone] CARLOS BARTLETT Referring Unavailable CARLOS BARTLETT Referring Unavailable CARLOS BARTLETT Referring Unavailable ASHER NOONAN Attending Unavailable CARLOS BARTLETT Referring Unavailable LAURO NUNES Referring Unavailable LAURO NUNES Referring Unavailable RYAN TENA Attending Unavailable CARLOS BARTLETT Referring Unavailable STANFORD CANTU Attending Unavailable CARLOS BARTLETT Attending Unavailable CARLOS BARTLETT Attending Unavailable CARLOS BARTLETT Attending Unavailable MD Chester Hobbs Attending Unavailable MD Chester Hobbs Attending Unavailable MD Chester Hobbs Attending Unavailable MD Chester Hobbs Attending Unavailable MD Chester Hobbs Attending Unavailable MD Chester Hobbs Admitting Unavailable MD Chester Hobbs Admitting Unavailable MD Chester Hobbs Attending Unavailable MD Chester Hobbs Attending Unavailable MD Chester Hobbs Attending Unavailable JOHAN, CENTENO N Referring Unavailable JOHAN, CENTENO N Primary Care Unavailable JOHAN, CENTENO N Referring Unavailable JOHAN, CENTENO N Primary Care Unavailable JOHAN, CENTENO N Referring Unavailable JOHAN, CENTENO N Primary Care Unavailable JOHAN, CENTENO N Referring Unavailable JOHAN, CENTENO N Primary Care Unavailable JOHAN, CENTENO N Referring Unavailable JOHAN, CENTENO N Primary Care Unavailable NO PCP, NO PCP Primary Care Unavailable ARABELLA FREGOSO Attending Unavailable HEATHER SWEET Attending Unavailable HEATHER SWEET Referring Unavailable NO PCP, NO PCP Primary Care Unavailable JOHAN, CENTENO N Attending Unavailable CHESTER HOBBS Referring Unavailable NO PCP, NO PCP Primary Care Unavailable JOHAN, CENTENO N Referring Unavailable NO PCP, NO PCP Primary Care Unavailable JOHAN, CENTENO N Referring Unavailable NO PCP, NO PCP Primary Care Unavailable JOHAN, CENTENO N Referring Unavailable NO PCP, NO PCP Primary Care Unavailable REBEKAH ROSENBAUM Attending Unavailable REBEKAH ROSENBAUM Referring Unavailable NO PCP, NO PCP Primary Care Unavailable JOHAN, JACOBO N Attending Unavailable CHESTER HOBBS Referring Unavailable NO PCP, NO PCP Primary Care Unavailable JOHAN, CENTENO N Referring Unavailable NO PCP, NO PCP Primary Care Unavailable CHESTER HOBBS Referring Unavailable NO PCP, NO PCP Primary Care Unavailable JOHAN, CENTENO N Referring Unavailable NO PCP, NO PCP Primary Care Unavailable CHESTER HOBBS Referring Unavailable NO PCP, NO PCP Primary Care Unavailable JOHNA, CENTENO N Primary Care Unavailable FELICIA MCLAUGHLIN Attending Unavailable OLIVIA WOODWARD Admitting Unavailable MARLON SILVA Consulting UnavailCATIE Reardon Consulting Unavailable [facility] Consulting Unavailable BRADEN REIS Consulting Unavailable FELICIA MCLAUGHLIN Attending Unavailable LISSETTEANABELLFELICIA Referring Unavailable JOHAN, CENTENO N Primary Care Unavailable SUNIL MANNING Attending Unavailable SUNIL MANNING Referring Unavailable JOHAN, CENTENO N Primary Care Unavailable SUNIL MANNING Attending Unavailable RAGLESUNIL Referring Unavailable JOHAN, CENTENO N Primary Care Unavailable JOHAN, CENTENO N Referring Unavailable JOHAN, CENTENO N Primary Care Unavailable JOHAN, CENTENO N Referring Unavailable JOHAN, CENTENO N Primary Care Unavailable JOHAN, CENTENO N Attending Unavailable CHESTER HOBBS Referring Unavailable JOHAN, CENTENO N Primary Care Unavailable JOHAN, CENTENO N Referring Unavailable JOHAN, CENTENO N Primary Care Unavailable JOHAN, CENTENO N Referring Unavailable JOHAN, CENTENO N Primary Care Unavailable JOHAN, CENTENO N Referring Unavailable JOHAN, CENTENO N Primary Care Unavailable JOHAN, CENTENO N Referring Unavailable JOHAN, CENTENO N Primary Care Unavailable JOHAN, CENTENO N Referring Unavailable JOHAN, CENTENO N Primary Care Unavailable JOHAN, CENTENO N Referring Unavailable JOHAN, CENTENO N Primary Care Unavailable JOHAN, CENTENO N Referring Unavailable JOHAN, CENTENO N Primary Care Unavailable JOHAN, CENTENO N Attending Unavailable CHESTER HOBBS Referring Unavailable JOHAN, CENTENO N Primary Care Unavailable JOHAN, CENTENO N Referring Unavailable JOHAN, CENTENO N Primary Care Unavailable JOHAN, CENTENO N Referring Unavailable JOHAN, CENTENO N Primary Care Unavailable JOHAN, CENTENO N Referring Unavailable JOHAN, CENTENO N Primary Care Unavailable JOHAN, CENTENO N Referring Unavailable JOHAN, CENTENO N Primary Care Unavailable JOHAN, CENTENO N Referring Unavailable JOHAN, CENTENO N Primary Care Unavailable JOHAN, CENTENO N Attending Unavailable JOHAN, CENTENO N Referring Unavailable JOHAN, CENTENO N Primary Care Unavailable JOHAN, CENTENO N Referring Unavailable JOHAN, CENTENO N Primary Care Unavailable JOHAN, CENTENO N Attending Unavailable CHESTER HOBBS Referring Unavailable JOHAN, CENTENO N Primary Care Unavailable JOHAN, CENTENO N Referring Unavailable JOHAN, CENTENO N Primary Care Unavailable JOHAN, CENTENO N Referring Unavailable JOHAN, CENTENO N Primary Care Unavailable JOHAN, CENTENO N Referring Unavailable JOHAN, CENTENO N Primary Care Unavailable JOHAN, CENTENO N Referring Unavailable JOHAN, CENTENO N Primary Care Unavailable JOHAN, CENTENO N Referring Unavailable JOHAN, CENTENO N Primary Care Unavailable JOHAN, CENTENO N Referring Unavailable JOHAN, CENTENO N Primary Care Unavailable CHESTER HOBBS Primary Care Unavailable RAN LOMAS Attending Unavailable Allergies Allergy Classification Reported Allergen(s) Allergy Type Date of Onset Reaction(s) Facility (1 source) No Known Medication Allergies; 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: [No Known Medication Allergies] Propensity to adverse reactions (disorder) [facility] Repository Medications Current Medications Medication Drug Class(es) Dates Sig (Normalized) Sig (Original) amiodarone hydrochloride 200 mg oral tablet (11 sources) Antiarrhythmic Start: 10-19-2023 take 1 tablet by mouth in the morning amiodarone (PACERONE) 200 mg tablet Take 1 tablet (200 mg total) by mouth in the morning. 10/19/2023 Active apixaban 5 mg oral tablet (12 sources) Factor Xa Inhibitor Start: 10-24-2019 take 1 tablet by mouth in the morning, then take 1 tablet by mouth at bedtime apixaban (ELIQUIS) 5 mg tablet Take 1 tablet (5 mg total) by mouth in the morning and 1 tablet (5 mg total) before bedtime. 01/20/2020 Active aspirin 81 mg delayed release oral tablet (1 source) Platelet Aggregation Inhibitor, Nonsteroidal Anti-inflammatory Drug Start: 10-24-2019 take 1 tablet by mouth once daily aspirin 81 mg Oral EC Tab 81 mg = 1 tab(s), Oral, Daily, Refills(s) 0 Start Date: 10/24/19 Status: Ordered atorvastatin 20 mg oral tablet (12 sources) HMG-CoA Reductase Inhibitor Start: 10-24-2019 take 1 tablet by mouth in the morning atorvastatin (LIPITOR) 20 mg tablet Take 1 tablet (20 mg total) by mouth in the morning. 01/20/2020 Active bumetanide 1 mg oral tablet (5 sources) Loop Diuretic Start: 06-04-2023 take 1 tablet by mouth twice daily bumetanide 1 mg Tab 1 mg = 1 tab(s), Oral, BID, # 90 tab(s), Refills(s) 0, other reason (Rx) Start Date: 06/04/23 Status: Ordered take 1 tablet by ambar th once daily as needed bumetanide (BUMEX) 2 mg tablet Take 1 tablet (2 mg total) by mouth daily as needed (for swelling). Active calcium carbonate 1500 mg oral tablet (11 sources) take 1 tablet by mouth once daily at breakfast calcium carbonate (OS-SARAH BETH) 600 mg elemental (1,500 mg) tablet Take 1 tablet (600 mg total) by mouth daily with breakfast. Active carvedilol 3.125 mg oral tablet (1 source) alpha-Adrenergic Azul, beta-Adrenergic Azul Start: 020 take 2 tablets by mouth once daily Coreg 3.125 mg Tab 6.25 mg = 2 tab(s), Oral, Daily, Refills(s) 0 Start Date: 10/24/19 Status: Ordered digoxin 0.25 mg oral tablet (11 sources) Cardiac Glycoside take 1 tablet by mouth in the morning digoxin (LANOXIN) 250 mcg tablet Take 1 tablet (250 mcg total) by mouth in the morning. Active lidocaine-diphenhydramin e-rveekzih-fxlgvsisk hydroxide-simethicone CMPD (MAGIC MOUTHWASH) (11 sources) Start: take 5 mL by mouth four times daily as needed lidocaine-diphenhydra tnsd-sbbtokxu-jdkrfys um hydroxide-simethicone CMPD (MAGIC MOUTHWASH) Swish and spit 5 mL 4 (four) times a day as needed for mouth/gum irritation. 250 mL 1 10/14/2023 Active magnesium oxide 400 mg oral tablet (11 sources) Start: take 1 tablet by mouth in the morning magnesium oxide (MAGOX) 400 mg tablet Take 1 tablet (400 mg total) by mouth in the morning. 30 tablet 6 10/12/2023 Active melatonin 3 mg oral capsule (11 sources) take 1 capsule by mouth once daily as needed melatonin 3 mg capsule Take 3 mg by mouth nightly as needed. Active 24 hr metoprolol succinate 25 mg extended release oral tablet (11 sources) beta-Adrenergic Azul Start: take 0.5 tablet by mouth every twenty-four hours in the morning metoprolol succinate XL (TOPROL XL) 25 mg 24 hr tablet Take 0.5 tablets (12.5 mg total) by mouth in the morning. 10/12/2023 Active mirtazapine 15 mg oral tablet (11 sources) take 1 tablet by mouth once daily mirtazapine (REMERON) 15 mg tablet Take 1 tablet (15 mg total) by mouth nightly. 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 60 tablet 2 09/24/2023 Active microencapsulated potassium chloride 20 meq extended release oral tablet (12 sources) Start: take 1 tablet by mouth once in the morning potassium chloride (KLOR-CON M 20) 20 MEQ CR tablet Take 1 tablet (20 mEq total) by mouth in the morning and 1 tablet (20 mEq total) before bedtime. Plan to stop the potassium supplementation once diarrhea has resolved.. 60 tablet 6 10/12/2023 Active Start: 10-24-2019 take 1 tablet by ambar th once daily potassium chloride 20 mEq ER Tab 20 mEq = 1 tab(s), Oral, Daily, Refills(s) 0 Start Date: 10/24/19 Status: Ordered sacubitril 24 mg / valsartan 26 mg oral tablet (1 source) Angiotensin 2 Receptor Azul Start: 10-24-2019 take 1 tablet by mouth twice daily Entresto 24 mg-26 mg oral tablet 1 tab(s), Oral, BID Start Date: 10/24/19 Status: Ordered sildenafil 20 mg oral tablet (1 source) Phosphodiesterase 5 Inhibitor Start: 10-24-2019 take 1 tablet by mouth once daily as needed sildenafil 20 mg oral tablet 20 mg = 1 tab(s), Oral, Daily, PRN erectile dysfunction, Refills(s) 0 Start Date: 10/24/19 Status: Ordered Completed/Discontinued Medications Medication Drug Class(es) Dates Sig (Normalized) Sig (Original) acetaminophen 500 mg oral tablet (15 sources) Start: 02-11-2024 End: 02-11-2024 take 1000 mg by mouth once 1,000 mg, oral, Once, On Joanne 02/11/24 at 1045, For 1 dose Start: 01-28-2024 End: 01-28-2024 take 1000 mg by mouth once 1,000 mg, oral, Once, On Th u 01/28/24 at 1030, For 1 dose Start: 01-15-2024 End: 01-15-2024 take 1000 mg by mouth once 1,000 mg, oral, Once, On Fr i 01/15/24 at 1115, For 1 dose Start: 2023 End: 2023 take 1000 mg by mouth once 1,000 mg, oral, Once, On Th u 12/31/23 at 1030, For 1 dose Start: 10-19-2023 take 2 tablets by mo uth in the morning, then take 2 tablets by mouth at bedtime acetaminophen (TYLENOL EXTRA STRENGTH) 500 mg tablet Take 2 tablets (1,000 mg total) by mouth in the morning and 2 tablets (1,000 mg total) before bedtime. 10/19/2023 Active brentuximab vedotin (ADCETRIS) 120 mg in sodium chloride 0.9 % 100 mL chemo IVPB (3 sources) Start: 02-11-2024 End: 02-11-2024 120 mg, intravenous, at 248 mL/hr, Administer over 30 Minutes, Once, On Joanne 02/11/24 at 1215, For 1 dose, Administer brentuximab vedotin within approximately 1 hour after completion of AVD (DOXOrubicin/vinBLAStine/dacarbazine). Start: 01-28-2024 End: 01-28-2024 120 mg, intravenous, at 248 mL/hr, Administer over 30 Minutes, Once, On Joanne 01/28/24 at 1200, For 1 dose, Administer brentuximab vedotin within approximately 1 hour after completion of AVD (DOXOrubicin/vinBLAStine/dacarbazine). Start: 01-15-2024 End: 01-15-2024 120 mg, intravenous, at 248 mL/hr, Administer over 30 Minutes, Once, On Thu01/15/24 at 1245, For 1 dose, Administer brentuximab vedotin within approximately 1 hour after completion of AVD (DOXOrubicin/vinBLAStine/dacarbazine). brentuximab vedotin (ADCETRIS) 120 mg in sodium chloride 0.9 % 150 mL chemo IVPB (1 source) Start: 2023 End: 2023 120 mg, intravenous, at 348 mL/hr, Administer over 30 Minutes, Once, On Joanne 12/31/23 at 1200, For 1 dose, Administer brentuximab vedotin within approximately 1 hour after completion of AVD (DOXOrubicin/vinBLAStine/dacarbazine). 1 ml dexamethasone phosphate 4 mg/ml injection (3 sources) Corticosteroid Start: 02-11-2024 End: 02-11-2024 12 mg, intravenous, Once, On Joanne 02/11/24 at 1045, For 1 dose, May alter blood glucose or insulin requirements. Look-alike/sound-alike medication - verify indication for use. Start: 01-28-2024 End: 01-28-2024 12 mg, intravenous, Once, On Joanne 01/28/24 at 1030, For 1 dose, May alter blood glucose or insulin requirements. Look-alike/sound-alike medication - verify indication for use. Start: 01-15-2024 End: 01-15-2024 12 mg, intravenous, Once, On Thu01/15/24 at 1115, For 1 dose, May alter blood glucose or insulin requirements. Look-alike/sound-alike medication - verify indication for use. dexAMETHasone (DECADRON) 12 mg, palonosetron (ALOXI) 0.25 mg in sodium chloride 0.9 % 50 mL IVPB (1 source) Start: 2023 End: 2023 intravenous, at 232 mL/hr, Administer over 15 Minutes, Once, On Joanne 12/31/23 at 1030, For 1 dose diphenhydrAMINE (4 sources) Histamine-1 Receptor Antagonist Start: 02-11-2024 End: 02-11-2024 take 25 mg intravenously once 25 mg, intravenous, Once, On Joanne 02/11/24 at 1045, For 1 dose, Look-alike/sound- alike medication - verify indication for use., Intravenous Specific Administration: IV Push Start: 01-28-2024 End: 01-28-2024 take 25 mg intravenously once 25 mg, intravenous, Once , On Joanne 01/28/24 at 1030, For 1 dose, Look-alike/sound-alike medication - verify indication for use., Intravenous Specific Administration: IV Push Start: 01-15-2024 End: 01-15-2024 take 25 mg intravenously once 25 mg, intravenous, Once , On Thu01/15/24 at 1115, For 1 dose, Look-alike/sound-alike medication - verify indication for use., Intravenous Specific Administration: IV Push Start: 2023 End: 2023 take 25 mg intravenously once 25 mg, intravenous, Once , On Joanne 12/31/23 at 1030, For 1 dose, Look-alike/sound-alike medication - verify indication for use., Intravenous Specific Administration: IV Push 5 ml palonosetron 0.05 mg/ml injection (3 sources) Serotonin-3 Receptor Antagonist Start: 02-11-2024 End: 02-11-2024 0.25 mg, intravenous, Once, On Joanne 02/11/24 at 1045, For 1 dose Start: 01-28-2024 End: 01-28-2024 0.25 mg, intravenous, Once, On Joanne 01/28/24 at 1030, For 1 dose Start: 01-15-2024 End: 01-15-2024 0.25 mg, intravenous, Once, On Thu01/15/24 at 1115, For 1 dose 125 ml sodium chloride 9 mg/ ml prefilled syringe (7 sources) Start: 02-11-2024 End: 02-11-2024 20 mL, intravenous, As neede d, port line care, Starting on Joanne 02/11/24 at 1037, Flush with NS prior to Heplock. Start: 02-11-2024 End: 02-11-2024 take 25 mL intravenously every hour as needed 25 mL/hr, intravenous, Continuous PRN, When mainline IV needed (oncology protocol)., Starting on Joanne 02/11/24 at 1035, Match IVF to base solution of product being administered to ensure compatibility. Start: 01-28-2024 End: 01-28-2024 20 mL, intravenous, As neede d, port line care, Starting on Joanne 01/28/24 at 1142, Flush with NS prior to Heplock. Start: 01-28-2024 End: 01-28-2024 take 25 mL intravenously every hour as needed 25 mL/hr, intravenous, Continuous PRN, When mainline IV needed (oncology protocol)., Starting on Joanne 01/28/24 at 1025, Match IVF to base solution of product being administered to ensure compatibility. Start: 01-15-2024 20 mL, intrave nous, As needed, port line care, Starting on Thu01/15/24 at 1212, Flush with NS prior to Heplock. Start: 2023 End: 2023 20 mL, intravenous, As neede d, port line care, Starting on Joanne 12/31/23 at 1024, Flush with NS prior to Heplock. Start: 2023 End: 2023 take 25 mL intravenously every hour as needed 25 mL/hr, intravenous, Continuous PRN, When mainline IV needed (oncology protocol)., Starting on Thu12/31/23 at 1023, Match IVF to base solution of product being administered to ensure compatibility. Problems Active Problems Problem Classification Problem Date Documented Date Episodic/Chronic Cancer of brain and nervous system (1 source) Malignant neoplasm of central nervous system, unspecified; 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: [Malignant neoplasm of central nervous system, unspecified] Onset: 10-20-2023 Chronic Cardiac dysrhythmias (14 sources) Paroxysmal atrial fibrillation; 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: [Paroxysmal atrial fibrillation] Onset: 08-17-2023 10-03-2023 Chronic Cardiac dysrhythmias (1 source) Tachycardia, unspecified; 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: [Tachycardia, unspecified] Onset: 06-25-2023 Episodic Coagulation and hemorrhagic disorders (15 sources) Hereditary deficiency of other clotting factors; 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 mutation] Onset: 04-29-2017 10-24-2019 Chronic Conduction disorders (4 sources) Encounter for adjustment and management of automatic implantable cardiac defibrillator; 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: [Presence of automatic (implantable) cardiac defibrillator] Onset: 12-26-2021 Chronic Congestive heart failure; nonhypertensive (20 sources) Unspecified systolic (congestive) heart failure; 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: [Acute systolic (congestive) heart failure] Onset: 12-12-2016 10-24-2019 Chronic Coronary atherosclerosis and other heart disease (20 sources) Atherosclerotic heart disease of [place] coronary artery without angina pectoris; 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: [Atherosclerotic heart disease of [place] coronary artery with unstable angina pectoris] Onset: 12-12-2016 Chronic Diseases of white blood cells (12 sources) White blood cell count abnormal; 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: [Disorder of white blood cells, unspecified] Onset: 10-07-2023 10-07-2023 Chronic Disorders of lipid metabolism (1 source) Hyperlipidemia, unspecified; 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: [HYPERLIPIDEMIA, UNSPECIFIED] Onset: 04-29-2017 Chronic Diverticulosis and diverticulitis (1 source) Diverticulitis of intestine, part unspecified, without perforation or abscess without bleeding; 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: [Diverticulitis of intestine, part unspecified, without perforation or abscess without bleeding] Onset: 08-12-2023 Chronic Essential hypertension (12 sources) Hypertensive disorder; 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: [Essential (primary) hypertension] Onset: 07-12-2021 10-24-2019 Chronic Hodgkin`s disease (20 sources) Hodgkin's disease, nodular sclerosis of intrapelvic lymph nodes; 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: [Nodular sclerosis Hodgkin lymphoma, intrapelvic lymph nodes] Onset: 07-22-2023 2023 Chronic Hypertension with complications and secondary hypertension (14 sources) Hypertensive heart disease with heart failure; 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: [Hypertensive heart failure] Onset: 12-12-2016 07-07-2023 Chronic Non-Hodgkin`s lymphoma (2 sources) Non-Hodgkin lymphoma, unspecified, unspecified site; 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: [Non-Hodgkin lymphoma, unspecified, unspecified site] Onset: 08-05-2023 Chronic Other aftercare (1 source) Long-term current use of anticoagulant 10-26-2019 Episodic Other and ill-defined heart disease (1 source) Cardiomegaly; 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: [CARDIOMEGALY] Onset: 01-28-2017 Chronic Other and unspecified benign neoplasm (1 source) Tubular adenoma of colon 11-25-2019 Episodic Other circulatory disease (2 sources) Presence of other cardiac implants and grafts; 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: [PRESENCE OF OTHER CARDIAC IMPLANTS AND GRAFTS] Onset: 01-28-2017 Chronic Other congenital anomalies (1 source) 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 Chronic Other lower respiratory disease (1 source) Other nonspecific abnormal finding of lung field; 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: [Other nonspecific abnormal finding of lung field] Onset: 07-07-2023 Episodic Other lower respiratory disease (1 source) Hypoxemia; 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: [Hypoxemia] Onset: 06-25-2023 Episodic Other nutritional; endocrine; and metabolic disorders (1 source) Body mass index 30+ - obesity 10-26-2019 Chronic Other nutritional; endocrine; and metabolic disorders (11 sources) Hypomagnesemia; 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: [Hypomagnesemia] Onset: 10-03-2023 10-03-2023 Chronic Other upper respiratory disease (1 source) Epistaxis; 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: [Epistaxis] Onset: 02-14-2024 Episodic Elin-; endo-; and myocarditis; cardiomyopathy (17 sources) Cardiomyopathy, unspecified; 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: [Cardiomyopathy] Onset: 01-14-2017 07-07-2023 Chronic Pneumonia (except that caused by tuberculosis or sexually transmitted disease) (1 source) Pneumonia (except that caused by tuberculosis or sexually transmitted disease) Onset: 06-25-2023 Residual codes; unclassified (1 source) Pain, unspecified; 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: [Pain, unspecified] Onset: 06-25-2023 Episodic Unclassified (2 sources) Unknown / UNK(Unknown) Onset: 12-12-2016 Unclassified (1 source) Hypertensive urgency; 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: [HYPERTENSIVE URGENCY] Onset: 12-12-2016 Unclassified (1 source) Patient encounter status 06-04-2023 Unclassified (1 source) Nose Bleed Onset: 02-14-2024 Unclassified (1 source) Outpatient Infusion Onset: 08-13-2023 Unclassified (1 source) Weakness - Generalized Onset: 08-12-2023 Unclassified (1 source) Diarrhea, Weakness Onset: 08-12-2023 Past or Other Problems Problem Classification Problem Date Documented Da te Episodic/Chronic Abdominal pain (1 source) Abdominal pain Onset: 4 Episodic Coronary atherosclerosis and other heart disease (4 sources) Presence of aortocoronary bypass graft; 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: [PRESENCE OF AORTOCORONARY BYPASS GRAFT] Onset: 7 Episodic Fluid and electrolyte disorders (20 sources) Dehydration; 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: [Dehydration] Onset: 4 10-03-2023 Episodic Immunizations and screening for infectious disease (1 source) Encounter for immunization; 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: [ENCOUNTER FOR IMMUNIZATION] Onset: 7 Episodic Intestinal infection (13 sources) 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; 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: [Acute gastroenteropathy due to Gratz agent] Onset: 4 10-03-2023 Episodic Malaise and fatigue (1 source) Fatigue Onset: 4 Episodic Nonspecific chest pain (2 sources) Chest pain, unspecified; 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: [CHEST PAIN, UNSPECIFIED] Onset: 7 Episodic Other aftercare (3 sources) Encounter for surgical aftercare following surgery on the circulatory system; 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: [oysterman (current) use of aspirin] Onset: 7 Episodic Other gastrointestinal disorders (12 sources) Diarrhea; 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: [Diarrhea, unspecified] Onset: 4 10-03-2023 Episodic Other gastrointestinal disorders (1 source) Diarrhea, unspecified; 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: [Diarrhea, unspecified] Onset: 4 Episodic Other lower respiratory disease (11 sources) Lung mass; 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: [Other nonspecific abnormal finding of lung field] Onset: 4 07-07-2023 Episodic Other lower respiratory disease (1 source) Shortness of breath; 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: [Shortness of breath] Onset: 4 Episodic Pneumonia (except that caused by tuberculosis or sexually transmitted disease) (12 sources) Pneumonia, unspecified organism; 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: [Pneumonia] Onset: 4 07-07-2023 Episodic Respiratory failure; insufficiency; arrest (adult) (2 sources) Respiratory failure, unspecified, unspecified whether with hypoxia or hypercapnia; 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: [Respiratory failure, unspecified, unspecified whether with hypoxia or hypercapnia] Onset: 4 Episodic Screening or history of mental health and substance abuse (1 source) Personal history of nicotine dependence; 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: [PERSONAL HISTORY OF NICOTINE DEPENDENCE] Onset: 7 Episodic Unclassified (1 source) Abnormal findings on diagnostic imaging of heart and coronary circulation; 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: [ABNORMAL FINDINGS ON DX IMAGING OF HEART AND COR CIRC] Onset: 7 Episodic Results Test Name Value Interpretation Reference Range Facility CBC AND AUTO DIFFon 02-09-20 24 ABSOLUTE BASOPHIL 0.1 X10E9/L Normal 0.0-0.2 [facility] Comment on above: Performed By: #### Bob GRAJEDA, 3083-03, CBCA ####[facility] ([id number])[address] [place] [address] 65757#### [id number] ####[facility] ([id number])[address] [place] [address] Basophils/100 WBC (Bld) 1.0 % Normal [facility] Comment on above: Performed By: #### Bob GRAJEDA, 3083-03, CBCA ####[facility] ([id number])[address] [place] [address] 11539#### [id number] ####[facility] ([id number])[address] [place] [address], [address] [address] Eosinophils (Bld) [#/Vol] 0.2 10*3/uL Normal 0.0-0.4 [facility] Comment on above: Performed By: #### Bob GRAJEDA, 3083-03, CBCA ####[facility] ([id number])[address] [place] [address] 34869#### [id number] ####[facility] ([id number])[address] [place] [address], [address] [address] Eosinophils/100 WBC (Bld) 2.0 % Normal [facility] Comment on above: Performed By: #### Bob GRAJEDA, 3083-03, CBCA ####[facility] ([id number])[address] [place] [address] 00127#### 40153-2 ####[facility] ([id number])[address] [facility], [address] [place] [address] Erythrocyte distribution width (RBC) [Ratio] 17.1 % High 11.5-15.0 [facility] Comment on above: Performed By: #### Bob GRAJEDA, 30806-28, CBCA ####[facility] ([id number])[address] [place] [address] 49965#### 70822-0 ####[facility] ([id number])[address] [facility], [address] [place] [address] Hematocrit (Bld) [Volume fraction] 41.8 % Normal 39-49 [facility] Comment on above: Performed By: #### Bob GRAJEDA, 3083-03, CBCA ####[facility] ([id number])[address] [place] [address] 25287#### 27093-3 ####[facility] ([id number])[address] [facility], [address] [place] [address]20 Hemoglobin (Bld) [Mass/Vol] 14.0 g/dL Normal 13.0-17.0 [facility] Comment on above: Performed By: #### Bob GRAJEDA, 3083-03, CBCA ####[facility] ([id number])[address] [place] [address] 05183#### [id number] ####[facility] ([id number])[address] [facility], [address] [place] [address]34 WINN-JOLLY BODY 1+ Abnormal NONE [facility] Comment on above: Performed By: #### Bob GRAJEDA, 3083-03, CBCA ####[facility] ([id number])[address] [place] [address] 04985#### 85257-0 ####[facility] ([id number])[address], [address] [place] [address]34 LYMPHOCYTE, ATYPICAL 4.0 % Normal [facility] Comment on above: Performed By: #### Bob GRAJEDA, 3083-, CBCA ####[facility] ([id number])[address] [place] [address] 47283#### 02051-3 ####[facility] ([id number])[address], [address], [place] [address] Lymphocytes (Bld) [#/Vol] 4.4 10*3/uL High 1.0-3.5 [facility] Comment on above: Performed By: #### Bob GRAJEDA, 3083-, CBCA ####[facility] ([id number])[address] [place] [address] 29570#### 45097-5 ####[facility] ([id number])[address], [address] [place] [address] Lymphocytes/100 WBC (Bld) 40.0 % Normal [facility] Comment on above: Performed By: #### Bob GRAJEDA, 3083-03, CBCA ####[facility] ([id number])[address] [place] [address] 19073#### 84575-8 ####[facility] ([id number])[address] [address], [place] [address] MCH (RBC) [Entitic mass] 35.3 pg High 27-34 [facility] Comment on above: Performed By: #### Bob GRAJEDA, 3083-, CBCA ####[facility] ([id number])[address] [place] [address] 10447#### 50606-7 ####[facility] ([id number])[address], [address], [place] [address] MCHC (RBC) [Mass/Vol] 33.4 g/dL Normal 32-36 [facility] Comment on above: Performed By: #### Bob GRAJEDA, 3083-, CBCA ####[facility] ([id number])[address] [place] [address] 76300#### 74551-2 ####[facility] ([id number])[address] [facility], [address], [place] [address] MCV (RBC) [Entitic vol] 106 fL High 80-100 [facility] Comment on above: Performed By: #### Bob GRAJEDA, 3083-03, CBCA ####[facility] ([id number])[address] [place] [address] 75621#### 09997-0 ####[facility] ([id number])[address] [facility], [address], [place] [address] Monocytes (Bld) [#/Vol] 2.0 10*3/uL High 0-0.9 [facility] Comment on above: Performed By: #### Bob GRAJEDA, 3083-03, CBCA ####[facility] ([id number])[address] [place] [address] 91456#### 61635-4 ####[facility] ([id number])[address] [facility], [address] [place] [address] Monocytes/100 WBC (Bld) 20.0 % Normal [facility] Comment on above: Performed By: #### Bob GRAJEDA, 3083-03, CBCA ####[facility] ([id number])[address] [place] [address] 14732#### 86601-6 ####[facility] ([id number])[address], [address], [place] [address] Neutrophils (Bld) [#/Vol] 3.3 10*3/uL Normal 1.5-6.6 [facility] Comment on above: Performed By: #### Bob GRAJEDA, 3084-, CBCA ####[facility] ([id number])[address] [place] [address] 70862#### 12295-1 ####[facility] ([id number])[address] [facility], [address], [place] [address] NUCLEATED RBC 3.0 /100 WBC High 0.0-1.0 [facility] Comment on above: Performed By: #### Bob GRAJEDA, 308-, CBCA ####[facility] ([id number])[address] [place] [address] 22056#### 27220-6 ####[facility] ([id number])[address] [facility], [address] [place] [address] Platelet mean volume (Bld) [Entitic vol] 9.7 fL Normal 7-12 [facility] Comment on above: Performed By: #### Bob GRAJEDA, 3084-, CBCA ####[facility] ([id number])[address] [place] [address] 30127#### 47185-8 ####[facility] ([id number])[address] [facility], [address], [place] [address] Platelets (Bld) [#/Vol] 310 10*3/uL Normal 150-450 [facility] Comment on above: Performed By: #### Bob GRAJEDA, 3083-, CBCA ####[facility] ([id number])[address] [place] [address] 18882#### 82951-8 ####[facility] ([id number])[address], [address], [place] [address] RBC COUNT 3.95 X10E12/L Low 4.10-5.70 [facility] Comment on above: Performed By: #### Bob GRAJEDA, 3083-03, CBCA ####[facility] ([id number])[address] [place] [address] 19310#### 41286-8 ####[facility] ([id number])[address], [address] [place] [address] RBC morphology finding Nom (Bld) REVIEWED Normal [facility] Comment on above: Performed By: #### Bob GRAJEDA, 3083-03, CBCA ####[facility] ([id number])[address] [place] [address] 35441#### 96711-7 ####[facility] ([id number])[address], [address] [place] [address] SEG NEUTROPHIL 33.0 % Normal [facility] Comment on above: Performed By: #### Bob GRAJEDA, 3083-03, CBCA ####[facility] ([id number])[address] [place] [address] 77741#### 46675-3 ####[facility] ([id number])[address], [address], [place] [address] WBC (Bld) [#/Vol] 10.0 10*3/uL Normal 4.0-11.0 [facility] Comment on above: Performed By: #### Bob GRAJEDA, 3083-03, CBCA ####[facility] ([id number])[address] [place] [address] 55358#### 23685-2 ####[facility] ([id number])[address], [place] [address] COMPREHENSIVE METABOLIC PANE [facility] 02-09-2024 Albumin [Mass/Vol] 3.3 g/dL Normal 3.2-5.3 [facility] Comment on above: Performed By: #### Bob GRAJEDA, 3083-03, CBCA ####[facility] ([id number])[address] [place] [address] 91168#### 75105-2 ####[facility] ([id number])[address], [address], [place] [address] ALP [Catalytic activity/Vol] 59 U/L Normal 39-130 [facility] Comment on above: Performed By: #### Bob GRAJEDA, 3083-03, CBCA ####[facility] ([id number])[address] [place] [address] 21997#### 48335-5 ####[facility] ([id number])[address], [address] [place] [address] ALT [Catalytic activity/Vol] 23 U/L Normal 0-40 [facility] Comment on above: Performed By: #### Bob GRAJEDA, 3083-03, CBCA ####[facility] ([id number])[address] [place] [address] 11029#### 79054-6 ####[facility] ([id number])[address], [address] [place] [address] Anion gap [Moles/Vol] 8 mmol/L Normal 5-15 [facility] Comment on above: Performed By: #### Bob GRAJEDA, 3083-03, CBCA ####[facility] ([id number])[address] [place] [address] 81108#### 29623-8 ####[facility] ([id number])[address], [address], [place] [address] AST [Catalytic activity/Vol] 31 U/L Normal 0-41 [facility] Comment on above: Performed By: #### Bob GRAJEDA, 3083-, CBCA ####[facility] ([id number])[address] [place] [address] 35335#### 67267-7 ####[facility] ([id number])[address], [address], [place] [address] Bilirubin [Mass/Vol] 0.5 mg/dL Normal 0.3-1.2 [facility] Comment on above: Performed By: #### Bob GRAJEDA, 3083-, CBCA ####[facility] ([id number])[address] [place] [address] 26984#### 31015-8 ####[facility] ([id number])[address], [address], [place] [address] Calcium [Mass/Vol] 9.4 mg/dL Normal 8.5-10.5 [facility] Comment on above: Performed By: #### Bob GRAJEDA, 3083-, CBCA ####[facility] ([id number])[address] [place] [address] 97599#### 83902-1 ####[facility] ([id number])[address], [address], [place] [address] Chloride [Moles/Vol] 100 mmol/L Normal 98-109 [facility] Comment on above: Performed By: #### Bob GRAJEDA, 3083-, CBCA ####[facility] ([id number])[address] [place] [address] 39416#### 96818-6 ####[facility] ([id number])[address], [address], [place] [address] CO2 [Moles/Vol] 29 mmol/L Normal 22-32 [facility] Comment on above: Performed By: #### C NICCI 3083-03, CBCA ####[facility] ([id number])[address] [place] [address] 04877#### 32956-1 ####[facility] ([id number])[address], [address], [place] [address] Creatinine [Mass/Vol] 0.79 mg/dL Normal 0.70-1.20 [facility] Comment on above: Result Comment: METH OD TRACEABLE TO IDMS STANDARD Performed By: #### C NICCI 3083-03, CBCA ####[facility] ([id number])[address] [place] [address] 95558#### 81909-5 ####[facility] ([id number])[address] [facility], [address] [place] [address]37 eGFR (CKD-EPI) NON-RACE DEPENDENT >90 Normal >59 [facility] Comment on above: Result Comment: Repo rted eGFR is based on theCKD-EPI 2020 equation that doesnot use a race coefficient. Performed By: #### Bob GRAJEDA 3083-03, CBCA ####[facility] ([id number])[address] [place] [address] 59340#### 13377-9 ####[facility] ([id number])[address], [address], [place] [address] Glucose [Mass/Vol] 111 mg/dL High 65-99 [facility] Comment on above: Performed By: #### Bob GRAJEDA 3083-03, CBCA ####[facility] ([id number])[address] [place] [address] 50756#### 72066-0 ####[facility] ([id number])[address], [address], [place] [address] Potassium [Moles/Vol] 4.2 mmol/L Normal 3.5-5.0 [facility] Comment on above: Performed By: #### Bob GRAJEDA, 3083-03, CBCA ####[facility] ([id number])[address] [place] [address] 18564#### 57852-7 ####[facility] ([id number])[address], [address] [place] [address] Protein [Mass/Vol] 6.1 g/dL Normal 6.0-8.0 [facility] Comment on above: Performed By: #### Bob GRAJEDA, 3083-03, CBCA ####[facility] ([id number])[address] [place] [address] 06766#### 54061-2 ####[facility] ([id number])[address], [address] [place] [address] 42517 Sodium [Moles/Vol] 137 mmol/L Normal 134-146 [facility] Comment on above: Performed By: #### Bob GRAJEDA, 3083-03, CBCA ####[facility] ([id number])[address] [place] [address] 53808#### 84862-7 ####[facility] ([id number])[address], [address] [place] [address] Urea nitrogen [Mass/Vol] 15 mg/dL Normal 5-27 [facility] Comment on above: Performed By: #### Bob GRAJEDA, 3083-03, CBCA ####[facility] ([id number])[address] [place] [address] 32369#### 47235-7 ####[facility] ([id number])[address], [address], [place] [address] ESR Photometric method (Bld) [Velocity]on 02-09-2024 ESR, ERYTHROCYTE SEDIMENTATION RATE 8 mm/h Normal 0-20 [facility] Comment on above: Performed By: #### C NICCI, 3084-1, CBCA ####[facility] ([id number])[address] [place] [address] 43091#### 16634-2 ####[facility] ([id number])[address] [facility], [address] [place] [address] URIC ACIDon 02-09-2024 Urate [Mass/Vol] 4.5 mg/dL Normal 2.6-7.2 [facility] Comment on above: Performed By: #### C NICCI, 3084-1, CBCA ####[facility] ([id number])[address] [place] [address] 84886#### 56168-3 ####[facility] ([id number])[address] [facility], [address] [address] Ambulatory Visit Summaryon 1 04-05-2023 Ambulatory Visit Summary Ambulatory Visit Summary TORSTEN HAYWOOD :1955 Visit Date:02/04/2024 Ambulatory Visit Instructions Your Diagnosis BMI 27.0-27.9,adult Overweight Nonsmoker Polyneuropathy, unspecified Unspecified atrial fibrillation Hodgkin lymphoma, unspecified, unspecified site Your Care Team Attending Physician - Chester Hobbs MD Primary Care Physician - Chester Hobbs MD This Is [place] Medications [place] [facility] [place]Keron Guevara, 5 years.) acetaminophen (acetaminophen 500 mg Tab) amiodarone (amiodarone 200 mg Tab) apixaban (Eliquis 5 mg oral tablet) atorvastatin (atorvastatin 20 mg Tab) bumetanide (bumetanide 1 mg Tab) calcium-vitamin D (Calcium 600+D) digoxin (digoxin 250 mcg (0.25 mg) Tab) docusate (Colace 100 mg Cap) magnesium chloride metoprolol (metoprolol succinate 25 mg ER Tab) mirtazapine (Remeron 15 mg Tab) ondansetron (Zofran 4 mg Tab) potassium chloride (potassium chloride 20 mEq ER Tab) prochlorperazine (Compazine 10 mg oral tablet) Procedures Performed Colonoscopy (11/16/2019), CABG x 5 - Coronary artery bypass grafts x 5, Cholecystectomy, Splenectomy. Discharge Vitals Temperature (Temporal Artery) 36.7 ???C Heart Rate (Peripheral) 96 Respiratory Rate 16 Blood Pressure 116/70 Height 185.2 cm Height 73 in Weight 94.3 kg Weight 207.46 lb BMI 27.49 What to do next Scheduled Follow-Up Appointments Thursday 8:00 AM EST Where: [place] [id number]- Medications What How Much When Why Instructions Unchanged acetaminophen (acetaminophen 500 mg Tab) 2 Tablets By Mouth Every 6 hours as needed Unchanged amiodarone (amiodarone 200 mg Tab) 1 Tablets By Mouth Every day Unchanged apixaban (Eliquis 5 mg oral tablet) 1 Tablets By Mouth 2 times a day Unchanged atorvastatin (atorvastatin 20 mg Tab) 1 Tablets By Mouth Every day Unchanged bumetanide (bumetanide 1 mg Tab) 1 Tablets By Mouth 2 times a day Unchanged calcium-vitamin D (Calcium 600+D) See instructions Take one daily Unchanged digoxin (digoxin 250 mcg (0.25 mg) Tab) 1 Tablets By Mouth Every day Unchanged docusate (Colace 100 mg Cap) 1 Tablets By Mouth Once a day (at bedtime) Unchanged magnesium chloride See instructions 400mg orally daily Unchanged metoprolol (metoprolol succinate 25 mg ER Tab) 0.5 Tablets By Mouth Every day Unchanged mirtazapine (Remeron 15 mg Tab) 1 Tablets By Mouth Once a day (at bedtime) Unchanged Misc Prescription (Handicap Ismael, 5 years.) See instructions Congestive heart failure Hyponatremia Hx of CABG HTN (hypertension) CAD (coronary artery disease) BMI 26.0-26.9,adult Overweight Nonsmoker Uses walker Handicap Ismael, 5 years. Unchanged ondansetron (Zofran 4 mg Tab) 1 Tablets By Mouth Every 8 hours as needed for nausea/ vomiting from chemo Unchanged potassium chloride (potassium chloride 20 mEq ER Tab) 1 Tablets By Mouth Every day Unchanged prochlorperazine (Compazine 10 mg oral tablet) 25 Milligram By Mouth 3 times a day as needed for milder nausea Allergies No Known Allergies No Known Medication Allergies Problems Ongoing - Any problem that you are currently receiving treatment for. Adult BMI 38.0-38.9 kg/sq m CAD (coronary artery disease) Chronic anticoagulation Congestive heart failure Factor V Leiden History of asplenia Hodgkin lymphoma HTN (hypertension) Hx of CABG Hyponatremia Leukocytosis Screening PSA (prostate specific antigen) Thrombocytopenia Total bilirubin, elevated Tubular adenoma of colon Uses walker Patient Survey You may receive a survey via text or e-mail asking about your office visit. Please share your experience with us by completing your survey. We appreciate your feedback and thank you for choosing us for your care. Normal [facility] Family Medicine Office/Clini c Noteon 02-04-2024 Family Medicine Office/Clinic Note Family Medicine Office/Clinic Note Chief Complaint Follow-up and management of Hodgkin's Lymphoma and associated conditions HPI Staff Torsten is a 68 year old male presenting for hospital follow up from september Hospital: [facility] Admission date: 09/30/23 Discharge date: 10/10/23 Symptoms the patient presented with: norovirus, had a full chemo treatment and diarrhea hit so got tested and had noro Current concerns: flu: done 01/05/24 questions/concerns: History of Present Illness The patient is a 68-year-old male presenting for follow-up and management of Hodgkin's Lymphoma and associated conditions. The patient has been undergoing treatment for Hodgkin's Lymphoma, which included a regimen initiated with brentuximab vedotin (BVAD) due to his significant medical history and high initial tumor burden. Following an episode of neurovirus after a full chemotherapy treatment, it was decided to continue with the brentuximab monotherapy, which the patient has tolerated well. There has been a favorable response to the treatment as evidenced by improved CT scans, with a scheduled PET scan to evaluate the current status of the tumors as live or scar tissue. The patient has experienced peripheral neuropathy, likely attributed to the chemotherapeutic regimen, and reports having tried [id number] B-complex vitamins upon suggestion. The patient's history also includes atrial fibrillation managed with amiodarone, with past episodes of significant lymphadenopathy and shortness of breath requiring thoracentesis for pleural effusion. The patient reports maintaining weight despite concerns of muscle wasting due to treatment and related conditions. Socially, he is engaged in regular physical activity and continues to maintain a positive outlook toward treatment and management of his health conditions. Review of Systems PHQ Score Initial Depression Screen Score: 0 SCORE Physical Exam Vitals & Measurements T: 36.7 ???C(Temporal Artery) HR: 96(Peripheral) RR: 16 BP: 116/70 SpO2: 96% HT: 73 in HT: 185.2 cm WT: 94.3 kg WT: 207.46 lb BMI: 27.49 General: alert, no acute distress ENMT: oral mucosa moist Cardiovascular: Regular rate and rhythm, normal peripheral perfusion Respiratory: Lungs clear to auscultation, respirations non labored Extremities: no deformity, no trauma Neurological: oriented x 4, level of consciousness appropriate for age, CN II-XII intact, motor strength equal & normal bilaterally, speech normal Abdomen: Soft, Non-tender, Non-distended, + Bowel sounds, large pleural effusion noted, thoracentesis performed with approximately 1 liter of fluid drained. Assessment/Plan 1. Hodgkin lymphoma, unspecified, unspecified site (C81.90) Continue brentuximab vedotin treatment. Plan for follow-up PET scan to assess status of the disease. Management of treatment side effects to continue, focusing on alleviating neuropathy symptoms. 2. Unspecified atrial fibrillation (I48.91) Continued use of amiodarone for rhythm control. Regular follow-up for cardiac monitoring and adjustments as necessary based on cardiology recommendations. 3. BMI 27.0-27.9,adult (Z68.27: Body mass index [BMI] 27.0-27.9, adult) Monitoring to continue with focus on dietary counseling and maintaining physical activity level to prevent progression to obesity. Ordered: Body Mass Index (BMI) documented 3008F Current tobacco non-user 1036F Depression Screening Negative 3352F Influenza immunization administered or previously received 4274F Most recent diastolic blood pressure <80 mm Hg 3078F Patient screen for fall risk: no falls in last year or 1 fall with no injury in last year 1101F Systolic BP <130 mm Hg (Most Recent) 3074F 4. Overweight (E66.3: Overweight) Ongoing weight management with dietary modifications and regular exercise. Monitor and address any weight changes influenced by ongoing treatment. Ordered: Body Mass Index (BMI) documented 3008F Current tobacco non-user 1036F Depression Screening Negative 3352F Influenza immunization administered or previously received 4274F Most recent diastolic blood pressure <80 mm Hg 3078F Patient screen for fall risk: no falls in last year or 1 fall with no injury in last year 1101F Systolic BP <130 mm Hg (Most Recent) 3074F 5. Nonsmoker (Z78.9: Other specified health status) Advise continuation of non-smoking status with routine health promotion and prevention strategies. Ordered: Body Mass Index (BMI) documented 3008F Current tobacco non-user 1036F Depression Screening Negative 3352F Influenza immunization administered or previously received 4274F Most recent diastolic blood pressure <80 mm Hg 3078F Patient screen for fall risk: no falls in last year or 1 fall with no injury in last year 1101F Systolic BP <130 mm Hg (Most Recent) 3074F 6. Polyneuropathy, unspecified (G62.9) Adij-nqt-miunkjv B-complex vitamins explored. Consider further assessment and management of symptoms shoul (more content not included)... Normal [facility] Comment on above: Result Comment: Elec tronically Signed By: Yfn ESCOBEDO, Chester Felix.br\Date and Time Signed: 02/04/24 10:15 EST CBC AND AUTO DIFFon 01-26-20 ABSOLUTE BASOPHIL 0.2 X10E9/L Normal 0.0-0.2 [facility] Comment on above: Performed By: #### C MP, CBCA, 3084-1 ####[facility] ([id number])[address] [place] [address] 84586#### 71609-0 ####[facility] ([id number])[address] [facility], [address] [place] [address] 10948 Basophils/100 WBC (Bld) 2.0 % Normal [facility] Comment on above: Performed By: #### C MP, CBCA, 3084-1 ####[facility] ([id number])[address] [place] [address] 12265#### 79156-7 ####[facility] ([id number])[address] [facility], [address], [place] [address] Eosinophils (Bld) [#/Vol] 0.1 10*3/uL Normal 0.0-0.4 [facility] Comment on above: Performed By: #### C NICCI, CBCA, 3083-03 ####[facility] ([id number])[address] [place] [address] 71488#### 11476-0 ####[facility] ([id number])[address] [facility], [address] [place] [address] 44560 Eosinophils/100 WBC (Bld) 1.0 % Normal [facility] Comment on above: Performed By: #### C NICCI CBCA, 3083-03 ####[facility] ([id number])[address] [place] [address] 82869#### 37368-0 ####[facility] ([id number])[address] [address] Erythrocyte distribution width (RBC) [Ratio] 17.2 % High 11.5-15.0 [facility] Comment on above: Performed By: #### Bob GRAJEDA, CBCA, 3083-03 ####[facility] ([id number])[address] [place] [address] 44322#### 97126-1 ####[facility] ([id number])[address] [address] Hematocrit (Bld) [Volume fraction] 41.7 % Normal 39-49 [facility] Comment on above: Performed By: #### Bob GRAJEDA, CBCA, 3083-03 ####[facility] ([id number])[address] [place] [address] 89004#### 73666-7 ####[facility] ([id number])[address] [address], [place] [address] Hemoglobin (Bld) [Mass/Vol] 14.1 g/dL Normal 13.0-17.0 [facility] Comment on above: Performed By: #### Bob GRAJEDA, CBCA, 3083-03 ####[facility] ([id number])[address] [place] [address] 72309#### 33516-3 ####[facility] ([id number])[address], [address] [address] WINN-JOLLY BODY 1+ Abnormal NONE [facility] Comment on above: Performed By: #### C NICCI, CBCA, 3083-03 ####[facility] ([id number])[address] [place] [address] 67693#### 71322-7 ####[facility] ([id number])[address]129 [facility], [address] [address] Lymphocytes (Bld) [#/Vol] 4.1 10*3/uL High 1.0-3.5 [facility] Comment on above: Performed By: #### Bob GRAJEDA, CBCA, 3083-03 ####[facility] ([id number])[address] [place] [address] 12377#### 39103-8 ####[facility] ([id number])[address] [address] Lymphocytes/100 WBC (Bld) 37.0 % Normal [facility] Comment on above: Performed By: #### Bob GRAJEDA, CBCA, 3083-03 ####[facility] ([id number])[address] [place] [address] 88580#### 81240-6 ####[facility] ([id number])[facility] [address] [place] [address] 28047 MCH (RBC) [Entitic mass] 35.5 pg High 27-34 [facility] Comment on above: Performed By: #### Bob GRAJEDA CBCA, 3084-1 ####[facility] ([id number])[address] [place] [address] 40273#### 32282-7 ####[facility] ([id number])[address], [address] [place] [address] MCHC (RBC) [Mass/Vol] 33.7 g/dL Normal 32-36 [facility] Comment on above: Performed By: #### Bob GRAJEDA, CBCA, 3084- ####[facility] ([id number])[address] [place] [address] 91316#### 72508-2 ####[facility] ([id number])[address], [address] [place] [address] MCV (RBC) [Entitic vol] 105 fL High 80-100 [facility] Comment on above: Performed By: #### Bob GRAJEDA, CBCA, 3084- ####[facility] ([id number])[address] [place] [address] 65973#### 55205-8 ####[facility] ([id number])[address], [address] [place] [address] Monocytes (Bld) [#/Vol] 1.8 10*3/uL High 0-0.9 [facility] Comment on above: Performed By: #### Bob GRAJEDA, CBCA, 3084- ####[facility] ([id number])[address] [place] [address] 48930#### 18476-0 ####[facility] ([id number])[address], [address], [place] [address] Monocytes/100 WBC (Bld) 16.0 % Normal [facility] Comment on above: Performed By: #### C NICCI, CBCA, 3084-1 ####[facility] ([id number])[address] [place] [address] 85562#### 95747-1 ####[facility] ([id number])[address], [address], [place] [address] Neutrophils (Bld) [#/Vol] 5.0 10*3/uL Normal 1.5-6.6 [facility] Comment on above: Performed By: #### C NICCI, CBCA, 3084-1 ####[facility] ([id number])[address] [place] [address]#### 79581-8 ####[facility] ([id number])[address], [address] [place] [address] 34041 NUCLEATED RBC 2.0 /100 WBC High 0.0-1.0 [facility] Comment on above: Performed By: #### Bob GRAJEDA, CBCA, 3084-1 ####[facility] ([id number])[address] [place] [address] 55259#### 71182-0 ####[facility] ([id number])[address], [address] [place] [address] Platelet mean volume (Bld) [Entitic vol] 9.5 fL Normal 7-12 [facility] Comment on above: Performed By: #### C NICCI, CBCA, 3084-1 ####[facility] ([id number])[address] [place] [address] 12037#### 25158-9 ####[facility] ([id number])[address], [address] [place] [address] Platelets (Bld) [#/Vol] 330 10*3/uL Normal 150-450 [facility] Comment on above: Performed By: #### Bob MP, CBCA, 3084-1 ####[facility] ([id number])[address] [place] [address] 44635#### 82682-5 ####[facility] ([id number])[address], [address], [place] [address] RBC COUNT 3.96 X10E12/L Low 4.10-5.70 [facility] Comment on above: Performed By: #### C MP, CBCA, 3084-1 ####[facility] ([id number])[address] [place] [address] 03940#### 91442-5 ####[facility] ([id number])[address], [address] [place] [address] 539[address] SEG NEUTROPHIL 44.0 % Normal [facility] Comment on above: Performed By: #### C MP, CBCA, 3084-1 ####[facility] ([id number])[address] [place] [address] 29838#### 02190-0 ####[facility] ([id number])[address], [address] [place] [address] WBC (Bld) [#/Vol] 11.2 10*3/uL High 4.0-11.0 [facility] Comment on above: Performed By: #### C MP, CBCA, 4-1 ####[facility] ([id number])[address] [place] [address] 25406#### 68506-0 ####[facility] ([id number])[address], [address] [place] [address] COMPREHENSIVE METABOLIC PANE Jalen 01-26-2024 Albumin [Mass/Vol] 3.3 g/dL Normal 3.2-5.3 [facility] Comment on above: Performed By: #### C NICCI CBCA, 3083- ####[facility] ([id number])[address] [place] [address] 52024#### 17253-5 ####[facility] ([id number])[address], [address], [place] [address] ALP [Catalytic activity/Vol] 69 U/L Normal 39-130 [facility] Comment on above: Performed By: #### C NICCI, CBCA, 3083- ####[facility] ([id number])[address] [place] [address] 57744#### 16457-9 ####[facility] ([id number])[address], [address] [place] [address] ALT [Catalytic activity/Vol] 25 U/L Normal 0-40 [facility] Comment on above: Performed By: #### C NICCI CBCA, 3083- ####[facility] ([id number])[address] [place] [address] 27170#### 02838-5 ####[facility] ([id number])[address], [address], [place] [address] Anion gap [Moles/Vol] 9 mmol/L Normal 5-15 [facility] Comment on above: Performed By: #### Bob GRAJEDA, CBCA, 3083- ####[facility] ([id number])[address] [place] [address] 15306#### 85907-0 ####[facility] ([id number])[address], [address], [place] [address] AST [Catalytic activity/Vol] 33 U/L Normal 0-41 [facility] Comment on above: Performed By: #### Bob GRAJEDA, CBCA, 3083-03 ####[facility] ([id number])[address] [place] [address] 81450#### 69111-0 ####[facility] ([id number])[address], [address] [place] [address] Bilirubin [Mass/Vol] 0.6 mg/dL Normal 0.3-1.2 [facility] Comment on above: Performed By: #### Bob GRAJEDA CBCA, 3083-03 ####[facility] ([id number])[address] [place] [address] 87927#### 20169-7 ####[facility] ([id number])[address], [address] [place] [address] Calcium [Mass/Vol] 9.2 mg/dL Normal 8.5-10.5 [facility] Comment on above: Performed By: #### Bob GRAJEDA CBCTrang, 3083-03 ####[facility] ([id number])[address] [place] [address] 24168#### 01160-0 ####[facility] ([id number])[address], [address], [place] [address] Chloride [Moles/Vol] 100 mmol/L Normal 98-109 [facility] Comment on above: Performed By: #### Bob GRAJEDA CBCA, 3083-03 ####[facility] ([id number])[address] [place] [address] 04821#### 80282-6 ####[facility] ([id number])[address], [address], [place] [address] CO2 [Moles/Vol] 29 mmol/L Normal 22-32 [facility] Comment on above: Performed By: #### Bob GRAJEDA, CBCA, 3083-03 ####[facility] ([id number])[address] [place] [address] 31283#### 09292-1 ####[facility] ([id number])[address], [address], [place] [address] Creatinine [Mass/Vol] 0.77 mg/dL Normal 0.70-1.20 [facility] Comment on above: Result Comment: METH OD TRACEABLE TO IDMS STANDARD Performed By: #### C OG GRAJEDA, 3084- ####[facility] ([id number])[address] [place] [address] 02250#### 36535-0 ####[facility] ([id number])[address], [address] [place] [address] eGFR (CKD-EPI) NON-RACE DEPENDENT >90 Normal >59 [facility] Comment on above: Result Comment: Repo rted eGFR is based on theCKD-EPI 2020 equation that doesnot use a race coefficient. Performed By: #### C OG GRAJEDA, 3083- ####[facility] ([id number])[address] [place] [address] 90866#### 59317-1 ####[facility] ([id number])[address], [address], [place] [address] Glucose [Mass/Vol] 160 mg/dL High 65-99 [facility] Comment on above: Performed By: #### C OG GRAJEDA, 3083- ####[facility] ([id number])[address] [place] [address] 47807#### 89665-2 ####[facility] ([id number])[address], [address] [place] [address] Potassium [Moles/Vol] 4.1 mmol/L Normal 3.5-5.0 [facility] Comment on above: Performed By: #### C NICCI, CBCA, 3084-1 ####[facility] ([id number])[address] [place] [address] 50456#### 08677-9 ####[facility] ([id number])[address], [address] [place] [address] Protein [Mass/Vol] 6.2 g/dL Normal 6.0-8.0 [facility] Comment on above: Performed By: #### C NICCI, CBCA, 3083- ####[facility] ([id number])[address] [place] [address] 73705#### 52868-0 ####[facility] ([id number])[address], [address] [place] [address] Sodium [Moles/Vol] 138 mmol/L Normal 134-146 [facility] Comment on above: Performed By: #### C NICCI, CBCA, 4- ####[facility] ([id number])[address] [place] [address] 24507#### 04235-8 ####[facility] ([id number])[address], [address] [place] [address] 19862 Urea nitrogen [Mass/Vol] 13 mg/dL Normal 5-27 [facility] Comment on above: Performed By: #### C MP, CBCA, 3083- ####[facility] ([id number])[address] [place] [address] 18492#### 69310-4 ####[facility] ([id number])[address], [address] [place] [address]27[address] ESR Photometric method (Bld) [Velocity]on 01-26-2024 ESR, ERYTHROCYTE SEDIMENTATION RATE 9 mm/h Normal 0-20 [facility] Comment on above: Performed By: #### C MP, CBCA, 3083-03 ####[facility] ([id number])[address] [place] [address] 37078#### 96480-1 ####[facility] ([id number])[address], [address], [place] [address] URIC ACIDon 01-26-2024 Urate [Mass/Vol] 4.7 mg/dL Normal 2.6-7.2 [facility] Comment on above: Performed By: #### C MP, CBCA, 3083-03 ####[facility] ([id number])[address] [place] [address] 88008#### 53228-6 ####[facility] ([id number])[address], [address] [place] [address] 39[address] CBC AND AUTO DIFFon 01-12-20 ABSOLUTE BASOPHIL 0.2 X10E9/L Normal 0.0-0.2 [facility] Comment on above: Performed By: #### C NICCI, 3083-03, CBCA, THYR ####[facility] ([id number])[address] [place] [address] 41540#### 09666-4 ####[facility] ([id number])[address], [address] [place] [address] 620[address] Basophils/100 WBC (Bld) 2.0 % Normal [facility] Comment on above: Performed By: #### C NICCI, 3083-03, CBCA, THYR ####[facility] ([id number])[address] [place] [address] 71220#### 27399-5 ####[facility] ([id number])[address], [address] [place] [address] 10842 Eosinophils (Bld) [#/Vol] 0.5 10*3/uL High 0.0-0.4 [facility] Comment on above: Performed By: #### Bob GRAJEDA, 3083-, CBCA, THYR ####[facility] ([id number])[address] [place] [address] 45670#### 97924-3 ####[facility] ([id number])[address], [address] [place] [address] 11585 Eosinophils/100 WBC (Bld) 4.0 % Normal [facility] Comment on above: Performed By: #### C NICCI, 3083-, CBCA, THYR ####[facility] ([id number])[address] [place] [address] 43082#### 35820-7 ####[facility] ([id number])[address], [address] [place] [address] 31327 Erythrocyte distribution width (RBC) [Ratio] 17.6 % High 11.5-15.0 [facility] Comment on above: Performed By: #### Bob GRAJEDA, 3083-, CBCA, THYR ####[facility] ([id number])[address] [place] [address] 18096#### 32949-5 ####[facility] ([id number])[address], [address] [address] Hematocrit (Bld) [Volume fraction] 42.8 % Normal 39-49 [facility] Comment on above: Performed By: #### Bob GRAJEDA, 3083-, CBCA, THYR ####[facility] ([id number])[address] [place] [address] 42231#### 08978-3 ####[facility] ([id number])[address], [address], [place] [address] Hemoglobin (Bld) [Mass/Vol] 14.5 g/dL Normal 13.0-17.0 [facility] Comment on above: Performed By: #### C NICCI, 3083-, CBCA, THYR ####[facility] ([id number])[address] [place] [address] 75499#### 56534-8 ####[facility] ([id number])[address], [address], [place] [address] WINN-JOLLY BODY 1+ Abnormal NONE [facility] Comment on above: Performed By: #### C NICCI, 3083-, CBCA, THYR ####[facility] ([id number])[address] [place] [address] 75061#### 43200-1 ####[facility] ([id number])[address], [address] [place] [address]153 Lymphocytes (Bld) [#/Vol] 6.8 10*3/uL High 1.0-3.5 [facility] Comment on above: Performed By: #### Bob GRAJEDA, 3083-, CBCA, THYR ####[facility] ([id number])[address] [place] [address] 69772#### 91368-2 ####[facility] ([id number])[address], [address] [place] [address] 97868 Lymphocytes/100 WBC (Bld) 55.0 % Normal [facility] Comment on above: Performed By: #### Bob GRAJEDA, 3083-, CBCA, THYR ####[facility] ([id number])[address] [place] [address] 68234#### 14298-0 ####[facility] ([id number])[address], [address], [place] [address] MCH (RBC) [Entitic mass] 35.7 pg High 27-34 [facility] Comment on above: Performed By: #### Bob GRAJEDA, 3084-1, CBCA, THYR ####[facility] ([id number])[address] [place] [address] 12659#### 74202-9 ####[facility] ([id number])[address], [address] [place] [address] 51415 MCHC (RBC) [Mass/Vol] 33.7 g/dL Normal 32-36 [facility] Comment on above: Performed By: #### Bob GRAJEDA, 3084-1, CBCA, THYR ####[facility] ([id number])[address] [place] [address] 21528#### 37956-6 ####[facility] ([id number])[address], [address] [address] MCV (RBC) [Entitic vol] 106 fL High 80-100 [facility] Comment on above: Performed By: #### Bob GRAJEDA, 3084-1, CBCA, THYR ####[facility] ([id number])[address] [place] [address] 74902#### 33850-5 ####[facility] ([id number])[address], [address] [place] [address] 46646 Monocytes (Bld) [#/Vol] 1.7 10*3/uL High 0-0.9 [facility] Comment on above: Performed By: #### Bob GRAJEDA, 3084-1, CBCA, THYR ####[facility] ([id number])[address] [place] [address] 75662#### 27270-1 ####[facility] ([id number])[address], [address] [place] [address] 45360 Monocytes/100 WBC (Bld) 14.0 % Normal [facility] Comment on above: Performed By: #### C NICCI, 3083-03, CBCA, THYR ####[facility] ([id number])[address] [place] [address] 41402#### 51510-6 ####[facility] ([id number])[address], [address] [place] [address] 76482 Neutrophils (Bld) [#/Vol] 3.0 10*3/uL Normal 1.5-6.6 [facility] Comment on above: Performed By: #### Bob GRAJEDA, 3083-03, CBCA, THYR ####[facility] ([id number])[address] [place] [address] 65621#### 24227-4 ####[facility] ([id number])[address], [address] [place] [address] 47740 NUCLEATED RBC 3.0 /100 WBC High 0.0-1.0 [facility] Comment on above: Performed By: #### Bob GRAJEDA, 3083-03, CBCA, THYR ####[facility] ([id number])[address] [place] [address] 63644#### 10294-8 ####[facility] ([id number])[address], [address] [place] [address] 15387 Platelet mean volume (Bld) [Entitic vol] 9.5 fL Normal 7-12 [facility] Comment on above: Performed By: #### Bob GRAJEDA, 3083-03, CBCA, THYR ####[facility] ([id number])[address] [place] [address] 58485#### 49024-0 ####[facility] ([id number])[address], [address] [place] [address] 04155 Platelets (Bld) [#/Vol] 323 10*3/uL Normal 150-450 [facility] Comment on above: Performed By: #### Bob GRAJEDA, 3083-, CBCA, THYR ####[facility] ([id number])[address] [place] [address] 81096#### 62026-2 ####[facility] ([id number])[address], [address], [place] [address] RBC COUNT 4.04 X10E12/L Low 4.10-5.70 [facility] Comment on above: Performed By: #### Bob GRAJEDA, 3083-, CBCA, THYR ####[facility] ([id number])[address] [place] [address] 40401#### 78821-9 ####[facility] ([id number])[address], [address] [place] [address] 96321 RBC morphology finding Nom (Bld) REVIEWED Normal [facility] Comment on above: Performed By: #### Bob GRAJEDA, 3083-, CBCA, THYR ####[facility] ([id number])[address] [place] [address] 22908#### 45784-0 ####[facility] ([id number])[address], [address] [place] [address] 49765 SEG NEUTROPHIL 25.0 % Normal [facility] Comment on above: Performed By: #### Bob GRAJEDA, 3083-, CBCA, THYR ####[facility] ([id number])[address] [place] [address] 49177#### 22556-0 ####[facility] ([id number])[address], [address], [place] [address] WBC (Bld) [#/Vol] 12.2 10*3/uL High 4.0-11.0 [facility] Comment on above: Performed By: #### Bob GRAJEDA 3083-, CBCA, THYR ####[facility] ([id number])[address] [place] [address] 08653#### 43191-7 ####[facility] ([id number])[address], [address], [place] [address] COMPREHENSIVE METABOLIC PANE [facility] 01-12-2024 Albumin [Mass/Vol] 3.5 g/dL Normal 3.2-5.3 [facility] Comment on above: Performed By: #### Bob GRAJEDA, 3083-, CBCA, THYR ####[facility] ([id number])[address] [place] [address] 47517#### 65694-1 ####[facility] ([id number])[address], [address] [place] [address] 91159 ALP [Catalytic activity/Vol] 74 U/L Normal 39-130 [facility] Comment on above: Performed By: #### Bob GRAJEDA, 3083-, CBCA, THYR ####[facility] ([id number])[address] [place] [address] 78041#### 76388-0 ####[facility] ([id number])[address], [address] [place] [address] 23124 ALT [Catalytic activity/Vol] 24 U/L Normal 0-40 [facility] Comment on above: Performed By: #### Bob GRAJEDA, 3083-, CBCA, THYR ####[facility] ([id number])[address] [place] [address] 01407#### 04947-3 ####[facility] ([id number])[address], [address], [place] [address] Anion gap [Moles/Vol] 10 mmol/L Normal 5-15 [facility] Comment on above: Performed By: #### Bob GRAJEDA, 308-1, CBCA, THYR ####[facility] ([id number])[address] [place] [address] 15577#### 15751-9 ####[facility] ([id number])[address], [address] [place] [address] 15604 AST [Catalytic activity/Vol] 40 U/L Normal 0-41 [facility] Comment on above: Performed By: #### Bob GRAJEDA, 3084-1, CBCA, THYR ####[facility] ([id number])[address] [place] [address] 74550#### 32469-4 ####[facility] ([id number])[address] [facility], [address] [place] [address] 69194 Bilirubin [Mass/Vol] 0.7 mg/dL Normal 0.3-1.2 [facility] Comment on above: Performed By: #### Bob GRAJEDA, 308-, CBCA, THYR ####[facility] ([id number])[address] [place] [address] 60211#### 89278-8 ####[facility] ([id number])[address], [address] [place] [address] 61145 Calcium [Mass/Vol] 9.3 mg/dL Normal 8.5-10.5 [facility] Comment on above: Performed By: #### Bob GRAJEDA, 3084-, CBCA, THYR ####[facility] ([id number])[address] [place] [address] 64926#### 08344-5 ####[facility] ([id number])[address], [address], [place] [address] Chloride [Moles/Vol] 99 mmol/L Normal 98-109 [facility] Comment on above: Performed By: #### C NICCI, 3083-03, CBCA, THYR ####[facility] ([id number])[address] [place] [address] 00600#### 47430-5 ####[facility] ([id number])[address] [facility], [address] [address] CO2 [Moles/Vol] 26 mmol/L Normal 22-32 [facility] Comment on above: Performed By: #### C NICCI, 3083-03, CBCA, THYR ####[facility] ([id number])[address] [place] [address] 03185#### 30079-1 ####[facility] ([id number])[address] [facility], [address] [address] Creatinine [Mass/Vol] 0.72 mg/dL Normal 0.70-1.20 [facility] Comment on above: Result Comment: METH OD TRACEABLE TO IDMS STANDARD Performed By: #### C NICCI, 3083-03, CBCA, THYR ####[facility] ([id number])[address] [place] [address] 74435#### 96479-3 ####[facility] ([id number])[address] [address] eGFR (CKD-EPI) NON-RACE DEPENDENT >90 Normal >59 [facility] Comment on above: Result Comment: Repo rted eGFR is based on theCKD-EPI 2020 equation that doesnot use a race coefficient. Performed By: #### C NICCI, 3083-03, CBCA, THYR ####[facility] ([id number])[address] [place] [address] 27764#### 42351-0 ####[facility] ([id number])[address], [address], [place] [address] Glucose [Mass/Vol] 136 mg/dL High 65-99 [facility] Comment on above: Performed By: #### C NICCI, 3083-, CBCA, THYR ####[facility] ([id number])[address] [place] [address] 14508#### 85181-9 ####[facility] ([id number])0 [facility], [address], [place] [address] Potassium [Moles/Vol] 3.7 mmol/L Normal 3.5-5.0 [facility] Comment on above: Performed By: #### C NICCI, 3083-03, CBCA, THYR ####[facility] ([id number])[address] [place] [address] 15464#### 25742-7 ####[facility] ([id number])0 [facility], [address] [place] [address] Protein [Mass/Vol] 6.4 g/dL Normal 6.0-8.0 [facility] Comment on above: Performed By: #### Bob GRAJEDA, 3083-03, CBCA, THYR ####[facility] ([id number])[address] [place] [address] 64648#### 16174-3 ####[facility] ([id number])[address], [address] [place] [address] Sodium [Moles/Vol] 135 mmol/L Normal 134-146 [facility] Comment on above: Performed By: #### Bob GRAJEDA, 3083-03, CBCA, THYR ####[facility] ([id number])[address] [place] [address] 92867#### 53798-6 ####[facility] ([id number])[address], [address], [place] [address] Urea nitrogen [Mass/Vol] 9 mg/dL Normal 5-27 [facility] Comment on above: Performed By: #### C NICCI, 3083-, CBCA, THYR ####[facility] ([id number])[address] [place] [address] 31870#### 97090-8 ####[facility] ([id number])[address], [address] [place] [address] 47000 ESR Photometric method (Bld) [Velocity]on 01-12-2024 ESR, ERYTHROCYTE SEDIMENTATION RATE 11 mm/h Normal 0-20 [facility] Comment on above: Performed By: #### C NICCI, 3083-03, CBCA, THYR ####[facility] ([id number])[address] [place] [address] 08293#### 82570-5 ####[facility] ([id number])[address], [address] [place] [address] 99228 THYROID PROFILEon 01-12-2024 Free T4 [Mass/Vol] 1.02 ng/dL Normal 0.61-1.60 [facility] Comment on above: Performed By: #### C NICCI, 3083-03, CBCA, THYR ####[facility] ([id number])[address] [place] [address] 82720#### 61142-3 ####[facility] ([id number])[address], [address] [place] [address] 54302 TSH 4.09 uIU/mL Normal 0.49-4.67 [facility] Comment on above: Performed By: #### Bob GRAJEDA, 3083-03, CBCA, THYR ####[facility] ([id number])[address] [place] [address] 52553#### 47715-0 ####[facility] ([id number])[address], [address] [place] [address] 29160 URIC ACIDon 01-12-2024 Urate [Mass/Vol] 5.0 mg/dL Normal 2.6-7.2 [facility] Comment on above: Performed By: #### Bob GRAJEDA, 3083-, CBCA, THYR ####[facility] ([id number])[address] [place] [address] 58083#### 13067-3 ####[facility] ([id number])0 [facility], [address] [address] [address] ABDOMEN AND PELVIS W CONT on 01-11-2024 CT ABDOMEN AND PELVIS W CONT Normal [facility] CT CHEST W CONTon 01-08-2024 CT CHEST W CONT Normal [facility] Office Visiton 01-05-2024 Follow-up visit [id number] Luke Haywood 1955 M Date Provider Department Center 01/05/2024 [facility] Family History Problem Relation Age of Onset Coronary artery disease Father Coronary artery disease Brother Family Status - Relation Status Age at Father Brother Level of Service:72611 [place] OFFICE/OUTPATIENT ESTABLISHED LOW MDM 20 MIN Normal [facility] CBC AND AUTO DIFFon 12-29-19 24 ABSOLUTE BASOPHIL 0.1 X10E9/L Normal 0.0-0.2 [facility] Comment on above: Performed By: #### Bob GRAJEDA, 3083-, CBCA ####[facility] ([id number])[address] [place] [address] 32570#### 98687-2 ####[facility] ([id number])[address], [address] [address] Basophils/100 WBC (Bld) 1.0 % Normal [facility] Comment on above: Performed By: #### Bob GRAJEDA, 3083-03, CBCA ####[facility] ([id number])[address] [place] [address] 23335#### 86869-9 ####[facility] ([id number])[address], [address], [place] [address] Eosinophils (Bld) [#/Vol] 0.8 10*3/uL High 0.0-0.4 [facility] Comment on above: Performed By: #### C NICCI, 3083-03, CBCA ####[facility] ([id number])[address] [place] [address] 06324#### 50552-8 ####[facility] ([id number])[address], [address] [place] [address] 50711 Eosinophils/100 WBC (Bld) 6.0 % Normal [facility] Comment on above: Performed By: #### Bob GRAJEDA, 3083-03, CBCA ####[facility] ([id number])[address] [place] [address] 77187#### 69500-3 ####[facility] ([id number])[address], [address] [place] [address] 17803 Erythrocyte distribution width (RBC) [Ratio] 18.1 % High 11.5-15.0 [facility] Comment on above: Performed By: #### Bob GRAJEDA, 3083-03, CBCA ####[facility] ([id number])[address] [place] [address] 64708#### 81919-9 ####[facility] ([id number])[address], [address], [place] [address] Hematocrit (Bld) [Volume fraction] 43.7 % Normal 39-49 [facility] Comment on above: Performed By: #### Bob GRAJEDA, 3083-03, CBCA ####[facility] ([id number])[address] [place] [address] 85855#### 08707-4 ####[facility] ([id number])[address] [facility], [address] [place] [address] Hemoglobin (Bld) [Mass/Vol] 14.9 g/dL Normal 13.0-17.0 [facility] Comment on above: Performed By: #### Bob GRAJEDA, 3083-03, CBCA ####[facility] ([id number])[address] [place] [address] 42633#### 61070-6 ####[facility] ([id number])0 [facility], [address] [place] [address] 88547 WINN-JOLLY BODY 1+ Abnormal NONE [facility] Comment on above: Performed By: #### Bob GRAJEDA, 3083-03, CBCA ####[facility] ([id number])[address] [place] [address] 96780#### 47408-1 ####[facility] ([id number])[address] [facility], [address] [place] [address] 79152 Lymphocytes (Bld) [#/Vol] 7.1 10*3/uL High 1.0-3.5 [facility] Comment on above: Performed By: #### Bob GRAJEDA, 3083-03, CBCA ####[facility] ([id number])[address] [place] [address] 87042#### 46034-9 ####[facility] ([id number])[address] [facility], [address] [place] [address] 05890 Lymphocytes/100 WBC (Bld) 53.0 % Normal [facility] Comment on above: Performed By: #### Bob GRAJEDA, 3083-03, CBCA ####[facility] ([id number])[address] [place] [address] 90306#### 05346-7 ####[facility] ([id number])0 [facility], [address] [place] [address] 08986 MCH (RBC) [Entitic mass] 35.7 pg High 27-34 [facility] Comment on above: Performed By: #### Bob GRAJEDA, 3083-03, CBCA ####[facility] ([id number])[address] [place] [address] 04606#### 05833-9 ####[facility] ([id number])[address] [facility], [address] [place] [address] 62122 MCHC (RBC) [Mass/Vol] 34.0 g/dL Normal 32-36 [facility] Comment on above: Performed By: #### Bob GRAJEDA, 3083-03, CBCA ####[facility] ([id number])[address] [place] [address] 40060#### 88014-3 ####[facility] ([id number])0 [facility], [address] [place] [address] 47227 MCV (RBC) [Entitic vol] 105 fL High 80-100 [facility] Comment on above: Performed By: #### Bob GRAJEDA, 3083-03, CBCA ####[facility] ([id number])[address] [place] [address] 37294#### 67649-3 ####[facility] ([id number])0 [facility] [address] [place] [address] 05679 Monocytes (Bld) [#/Vol] 2.0 10*3/uL High 0-0.9 [facility] Comment on above: Performed By: #### Bob GRAJEDA, 3083-03, CBCA ####[facility] ([id number])[address] [place] [address] 94140#### 89362-0 ####[facility] ([id number])[address] [facility], [address] [place] [address] 73432 Monocytes/100 WBC (Bld) 15.0 % Normal [facility] Comment on above: Performed By: #### Bob GRAJEDA, 3084-, CBCA ####[facility] ([id number])[address] [place] [address] 47213#### 21432-2 ####[facility] ([id number])0 [facility], [address] [place] [address] 09454 Neutrophils (Bld) [#/Vol] 3.3 10*3/uL Normal 1.5-6.6 [facility] Comment on above: Performed By: #### Bob GRAJEDA, 3083-03, CBCA ####[facility] ([id number])[address] [place] [address] 98730#### 39832-3 ####[facility] ([id number])0 [facility], [address] [place] [address] 07983 Platelet mean volume (Bld) [Entitic vol] 9.5 fL Normal 7-12 [facility] Comment on above: Performed By: #### Bob GRAJEDA, 3083-03, CBCA ####[facility] ([id number])[address] [place] [address] 69709#### 12123-8 ####[facility] ([id number])[address] [facility], [address], [place] [address] Platelets (Bld) [#/Vol] 338 10*3/uL Normal 150-450 [facility] Comment on above: Performed By: #### Bob GRAJEDA, 3083-, CBCA ####[facility] ([id number])[address] [place] [address] 17521#### 86080-5 ####[facility] ([id number])[address], [address] [place] [address] 70911 RBC COUNT 4.17 X10E12/L Normal 4.10-5.70 [facility] Comment on above: Performed By: #### Bob GRAJEDA, 3083-, CBCA ####[facility] ([id number])[address] [place] [address] 24719#### 99062-4 ####[facility] ([id number])[address] [facility], [address] [place] [address] 28072 RBC morphology finding Nom (Bld) REVIEWED Normal [facility] Comment on above: Performed By: #### Bob GRAJEDA, 3083-03, CBCA ####[facility] ([id number])[address] [place] [address] 44323#### 89899-9 ####[facility] ([id number])[address] [facility], [address] [place] [address] 32873 SEG NEUTROPHIL 25.0 % Normal [facility] Comment on above: Performed By: #### Bob GRAJEDA, 3083-03, CBCA ####[facility] ([id number])[address] [place] [address] 40951#### 64971-4 ####[facility] ([id number])[address], [address] [place] [address] 21265 WBC (Bld) [#/Vol] 13.3 10*3/uL High 4.0-11.0 [facility] Comment on above: Performed By: #### Bob GRAJEDA, 3083-, CBCA ####[facility] ([id number])[address] [place] [address] 85631#### 78873-5 ####[facility] ([id number])[address], [address], [place] [address] COMPREHENSIVE METABOLIC PANE Jalen 12-29-2023 Albumin [Mass/Vol] 3.5 g/dL Normal 3.2-5.3 [facility] Comment on above: Performed By: #### Bob GRAJEDA, 3084-1, CBCA ####[facility] ([id number])[address] [place] [address] 93891#### 10874-0 ####[facility] ([id number])[address] [facility], [address] [place] [address] 79167 ALP [Catalytic activity/Vol] 78 U/L Normal 39-130 [facility] Comment on above: Performed By: #### Bob GRAJEDA, 308-, CBCA ####[facility] ([id number])[address] [place] [address] 84230#### 81297-7 ####[facility] ([id number])[address] [facility], [address] [place] [address] 09152 ALT [Catalytic activity/Vol] 21 U/L Normal 0-40 [facility] Comment on above: Performed By: #### Bob GRAJEDA, 308-, CBCA ####[facility] ([id number])[address] [place] [address] 84586#### 65179-6 ####[facility] ([id number])[address], [address], [place] [address] Anion gap [Moles/Vol] 9 mmol/L Normal 5-15 [facility] Comment on above: Performed By: #### Bob GRAJEDA, 3083-, CBCA ####[facility] ([id number])[address] [place] [address] 54904#### 93234-4 ####[facility] ([id number])[address], [address] [place] [address] AST [Catalytic activity/Vol] 34 U/L Normal 0-41 [facility] Comment on above: Performed By: #### Bob GRAJEDA, 3084-, CBCA ####[facility] ([id number])[address] [place] [address] 07486#### 21299-9 ####[facility] ([id number])[address], [address] [place] [address] Bilirubin [Mass/Vol] 0.7 mg/dL Normal 0.3-1.2 [facility] Comment on above: Performed By: #### Bob GRAJEDA, 3083-, CBCA ####[facility] ([id number])[address] [place] [address] 53280#### 83234-6 ####[facility] ([id number])[address], [address], [place] [address] Calcium [Mass/Vol] 9.3 mg/dL Normal 8.5-10.5 [facility] Comment on above: Performed By: #### Bob GRAJEDA, 3083-, CBCA ####[facility] ([id number])[address] [place] [address] 56315#### 76048-1 ####[facility] ([id number])[address] [place] [address] Chloride [Moles/Vol] 101 mmol/L Normal 98-109 [facility] Comment on above: Performed By: #### Bob GRAJEDA, 3083-, CBCA ####[facility] ([id number])[address] [place] [address] 25011#### 85928-1 ####[facility] ([id number])[address], [address], [place] [address] CO2 [Moles/Vol] 29 mmol/L Normal 22-32 [facility] Comment on above: Performed By: #### C NICCI, 3083-03, CBCA ####[facility] ([id number])[address] [place] [address] 41997#### 07320-6 ####[facility] ([id number])[address], [address] [place] [address]3276 Creatinine [Mass/Vol] 0.79 mg/dL Normal 0.70-1.20 [facility] Comment on above: Result Comment: METH OD TRACEABLE TO IDMS STANDARD Performed By: #### C NICCI, 3083-03, CBCA ####[facility] ([id number])[address] [place] [address] 65975#### 79611-2 ####[facility] ([id number])[address], [address] [address] eGFR (CKD-EPI) NON-RACE DEPENDENT >90 Normal >59 [facility] Comment on above: Result Comment: Repo rted eGFR is based on theCKD-EPI 2020 equation that doesnot use a race coefficient. Performed By: #### C NICCI, 3083-03, CBCA ####[facility] ([id number])[address] [place] [address] 27283#### 63888-3 ####[facility] ([id number])[address] [address] Glucose [Mass/Vol] 129 mg/dL High 65-99 [facility] Comment on above: Performed By: #### C NICCI, 3083-03, CBCA ####[facility] ([id number])[address] [place] [address] 05044#### 28175-1 ####[facility] ([id number])[address], [address] [place] [address] Potassium [Moles/Vol] 4.3 mmol/L Normal 3.5-5.0 [facility] Comment on above: Performed By: #### Bob GRAJEDA, 3084-, CBCA ####[facility] ([id number])[address] [place] [address]#### [id number] ####[facility] ([id number])[address] [facility], [address], [place] [address] Protein [Mass/Vol] 6.4 g/dL Normal 6.0-8.0 [facility] Comment on above: Performed By: #### Bob GRAJEDA, 4-, CBCA ####[facility] ([id number])[address] [place] [address]#### [id number] ####[facility] ([id number])[address] [facility], [address], [place] [address] Sodium [Moles/Vol] 139 mmol/L Normal 134-146 [facility] Comment on above: Performed By: #### Bob GRAJEDA, 3083-, CBCA ####[facility] ([id number])[address] [place] [address]#### 52317-8 ####[facility] ([id number])[address] [facility], [address] [place] [address] Urea nitrogen [Mass/Vol] 9 mg/dL Normal 5-27 [facility] Comment on above: Performed By: #### Bob GRAJEDA, 3083-, CBCA ####[facility] ([id number])[address] [place] [address]#### [id number] ####[facility] ([id number])[address], [address] [place] [address] ESR Photometric method (Bld) [Velocity]on 12-29-2023 ESR, ERYTHROCYTE SEDIMENTATION RATE 6 mm/h Normal 0-20 [facility] Comment on above: Performed By: #### C MP, 3084-1, CBCA ####[facility] ([id number])[address] [place] [address]#### [id number] ####[facility] ([id number])[address], [address] [place] [address] URIC ACIDon 12-29-2023 Urate [Mass/Vol] 4.7 mg/dL Normal 2.6-7.2 [facility] Comment on above: Performed By: #### C NICCI, 3083-, CBCA ####[facility] ([id number])[address] [place], [place] [address]#### [id number] ####[facility] ([id number])[address], [address] [address] CBC AND AUTO DIFFon 12-15-19 24 ABSOLUTE BASOPHIL 0.1 X10E9/L Normal 0.0-0.2 [facility] Comment on above: Performed By: #### C TALISHA, CMP, 3083-03 ####[facility] ([id number])[address] [place] [address]#### [id number] ####[facility] ([id number])[address] [address] Basophils/100 WBC (Bld) 1.0 % Normal [facility] Comment on above: Performed By: #### C BCA, CMP, 3083-1 ####[facility] ([id number])[address] [place] [address]#### 70636-3 ####[facility] ([id number])[address], [address], [place] [address] Eosinophils (Bld) [#/Vol] 0.7 10*3/uL High 0.0-0.4 [facility] Comment on above: Performed By: #### Bob WOODALL, CMP, 3084-1 ####[facility] [facility] ([id number])[address] [place] [address] 72596#### 37507-6 ####[facility] ([id number])[address], [address] [place] [address] 05025 Eosinophils/100 WBC (Bld) 7.0 % Normal [facility] Comment on above: Performed By: #### Bob WOODALL, CMP, 3084-1 ####[facility] ([id number])[address] [place] [address] 57089#### 16652-3 ####[facility] ([id number])[address], [address] [place] [address] 70519 Erythrocyte distribution width (RBC) [Ratio] 18.4 % High 11.5-15.0 [facility] Comment on above: Performed By: #### Bob WOODALL, CMP, 3084-1 ####[facility] ([id number])[address] [place] [address] 47505#### 65777-6 ####[facility] ([id number])[address], [address], [place] [address] Hematocrit (Bld) [Volume fraction] 41.0 % Normal 39-49 [facility] Comment on above: Performed By: #### Bob WOODALL, CMP, 3084-1 ####[facility] ([id number])[address] [place] [address] 33481#### 29881-9 ####[facility] ([id number])[address], [address], [place] [address] Hemoglobin (Bld) [Mass/Vol] 13.9 g/dL Normal 13.0-17.0 [facility] Comment on above: Performed By: #### Bob WOODALL CMP, 3084-1 ####[facility] ([id number])[address] [place] [address] 39499#### 26253-5 ####[facility] ([id number])[address], [address], [place] [address] WINN-JOLLY BODY 1+ Abnormal NONE [facility] Comment on above: Performed By: #### Bob WOODALL, CMP, 3084-1 ####[facility] ([id number])[address] [place] [address] 18501#### 86762-1 ####[facility] ([id number])[address], [address], [place] [address] LYMPHOCYTE, ATYPICAL 1.0 % Normal [facility] Comment on above: Performed By: #### Bob WOODALL, CMP, 4-1 ####[facility] ([id number])[address] [place] [address] 04262#### 44487-6 ####[facility] ([id number])[address], [address], [place] [address] Lymphocytes (Bld) [#/Vol] 4.9 10*3/uL High 1.0-3.5 [facility] Comment on above: Performed By: #### Bob WOODALL, CMP, 3084-1 ####[facility] ([id number])[address] [place] [address] 98265#### 06333-1 ####[facility] ([id number])[address], [address], [place] [address] Lymphocytes/100 WBC (Bld) 51.0 % Normal [facility] Comment on above: Performed By: #### Bob WOODALL CMP, 3083- ####[facility] ([id number])[address] [place] [address] 24260#### 05161-4 ####[facility] ([id number])[address], [address], [place] [address] MCH (RBC) [Entitic mass] 35.8 pg High 27-34 [facility] Comment on above: Performed By: #### Bob WOODALL CMP, 3083- ####[facility] ([id number])[address] [place] [address] 02570#### 77361-2 ####[facility] ([id number])[address], [address] [place] [address] 99897 MCHC (RBC) [Mass/Vol] 33.9 g/dL Normal 32-36 [facility] Comment on above: Performed By: #### Bob WOODALL CMP, 3083- ####[facility] ([id number])[address] [place] [address] 71350#### 41164-7 ####[facility] ([id number])[address], [address] [place] [address] 83887 MCV (RBC) [Entitic vol] 106 fL High 80-100 [facility] Comment on above: Performed By: #### Bob WOODALL, CMP, 3083- ####[facility] ([id number])[address] [place] [address] 66936#### 75134-1 ####[facility] ([id number])[address], [address], [place] [address] Monocytes (Bld) [#/Vol] 1.1 10*3/uL High 0-0.9 [facility] Comment on above: Performed By: #### C BCA, CMP, 3084-1 ####[facility] ([id number])[address] [place] [address] 80040#### 43929-0 ####[facility] ([id number])[address], [address] [place] [address] 14393 Monocytes/100 WBC (Bld) 12.0 % Normal [facility] Comment on above: Performed By: #### C BCA, CMP, 3084-1 ####[facility] ([id number])[address] [place] [address] 58557#### 02559-0 ####[facility] ([id number])[address], [address] [place] [address] 83299 Neutrophils (Bld) [#/Vol] 2.7 10*3/uL Normal 1.5-6.6 [facility] Comment on above: Performed By: #### Bob BCA, CMP, 3084-1 ####[facility] ([id number])[address] [place] [address] 26387#### 94629-9 ####[facility] ([id number])[address], [address] [place] [address] 81657 NUCLEATED RBC 7.0 /100 WBC High 0.0-1.0 [facility] Comment on above: Performed By: #### C BCA, CMP, 3084-1 ####[facility] ([id number])[address] [place] [address] 96947#### 20329-2 ####[facility] ([id number])[address], [address] [place] [address] 66612 Platelet mean volume (Bld) [Entitic vol] 9.6 fL Normal 7-12 [facility] Comment on above: Performed By: #### C BCA, CMP, 3084-1 ####[facility] ([id number])[address] [place] [address] 87092#### 83257-3 ####[facility] ([id number])[address], [address], [place] [address] Platelets (Bld) [#/Vol] 313 10*3/uL Normal 150-450 [facility] Comment on above: Performed By: #### C BCA, CMP, 3084-1 ####[facility] ([id number])[address] [place] [address] 03442#### 62969-9 ####[facility] ([id number])[address], [address] [place] [address] RBC COUNT 3.87 X10E12/L Low 4.10-5.70 [facility] Comment on above: Performed By: #### C BCA, CMP, 3084-1 ####[facility] ([id number])[address] [place] [address] 89104#### 29056-3 ####[facility] ([id number])[address], [address] [place] [address] RBC morphology finding Nom (Bld) REVIEWED Normal [facility] Comment on above: Performed By: #### C BCA, CMP, 3084-1 ####[facility] ([id number])[address] [place] [address] 84290#### 29376-6 ####[facility] ([id number])[address], [address] [place] [address] SEG NEUTROPHIL 28.0 % Normal [facility] Comment on above: Performed By: #### C BCA, CMP, 3084-1 ####[facility] ([id number])[address] [place] [address] 35378#### 59164-7 ####[facility] ([id number])[address], [address] [place] [address] 02224 WBC (Bld) [#/Vol] 9.5 10*3/uL Normal 4.0-11.0 [facility] Comment on above: Performed By: #### C BCA, CMP, 3084-1 ####[facility] ([id number])[address] [place] [address] 98885#### 63014-5 ####[facility] ([id number])[address], [address] [place] [address] 71184 COMPREHENSIVE METABOLIC PANE Jalen 12-15-2023 Albumin [Mass/Vol] 3.1 g/dL Low 3.2-5.3 [facility] Comment on above: Performed By: #### C BCA, CMP, 4-1 ####[facility] ([id number])[address] [place] [address] 28733#### 41034-5 ####[facility] ([id number])[address], [address] [place] [address] 47174 ALP [Catalytic activity/Vol] 69 U/L Normal 39-130 [facility] Comment on above: Performed By: #### C BCA, CMP, 4-1 ####[facility] ([id number])[address] [place] [address] 99466#### 52799-4 ####[facility] ([id number])[address], [address] [place] [address] 52220 ALT [Catalytic activity/Vol] 17 U/L Normal 0-40 [facility] Comment on above: Performed By: #### C BCA, CMP, 3084-1 ####[facility] ([id number])[address] [place] [address] 35293#### 15994-0 ####[facility] ([id number])[address], [address], [place] [address] Anion gap [Moles/Vol] 6 mmol/L Normal 5-15 [facility] Comment on above: Performed By: #### C BCA, CMP, 3084-1 ####[facility] ([id number])[address] [place] [address] 90028#### 03916-8 ####[facility] ([id number])[address] [facility], [address], [place] [address] AST [Catalytic activity/Vol] 28 U/L Normal 0-41 [facility] Comment on above: Performed By: #### C BCA, CMP, 3084-1 ####[facility] ([id number])[address] [place] [address] 30029#### 38428-5 ####[facility] ([id number])[address] [facility], [address], [place] [address] Bilirubin [Mass/Vol] 0.7 mg/dL Normal 0.3-1.2 [facility] Comment on above: Performed By: #### C BCA, CMP, 3084-1 ####[facility] ([id number])[address] [place] [address] 98551#### 62857-9 ####[facility] ([id number])[address], [address] [place] [address] Calcium [Mass/Vol] 8.8 mg/dL Normal 8.5-10.5 [facility] Comment on above: Performed By: #### C BCA, CMP, 3084-1 ####[facility] ([id number])[address] [place] [address] [place] [address]#### 67781-6 ####[facility] ([id number])[address] [facility], [address] [place] [address] 37131 Chloride [Moles/Vol] 103 mmol/L Normal 98-109 [facility] Comment on above: Performed By: #### C MAGALI WOODALL, 3084-1 ####[facility] ([id number])[address] [place] [address] 53280#### 71871-0 ####[facility] ([id number])[address] [facility], [address] [place] [address] 91350 CO2 [Moles/Vol] 29 mmol/L Normal 22-32 [facility] Comment on above: Performed By: #### C MAGALI WOODALL, 3084-1 ####[facility] ([id number])[address] [place] [address] 10178#### 24546-9 ####[facility] ([id number])[address] [facility], [address] [place] [address] 93717 Creatinine [Mass/Vol] 0.63 mg/dL Low 0.70-1.20 [facility] Comment on above: Result Comment: METH OD TRACEABLE TO IDMS STANDARD Performed By: #### C MAGALI WOODALL, 4-1 ####[facility] ([id number])[address] [place] [address] 99485#### 18530-4 ####[facility] ([id number])[address] [facility], [address] [place] [address] 55961 eGFR (CKD-EPI) NON-RACE DEPENDENT >90 Normal >59 [facility] Comment on above: Result Comment: Repo rted eGFR is based on theCKD-EPI 2020 equation that doesnot use a race coefficient. Performed By: #### C TALISHA CMP, 4-1 ####[facility] ([id number])[address] [place] [address] 34899#### 27894-6 ####[facility] ([id number])[address], [address], [place] [address] Glucose [Mass/Vol] 116 mg/dL High 65-99 [facility] Comment on above: Performed By: #### Bob WOODALL CMP, 3084-1 ####[facility] ([id number])[address] [place] [address] 14247#### 52841-0 ####[facility] ([id number])[address], [address], [place] [address] Potassium [Moles/Vol] 4.1 mmol/L Normal 3.5-5.0 [facility] Comment on above: Performed By: #### Bob WOODALL CMP, 4-1 ####[facility] ([id number])[address] [place] [address] 02303#### 83142-7 ####[facility] ([id number])[address], [address] [place] [address] Protein [Mass/Vol] 5.8 g/dL Low 6.0-8.0 [facility] Comment on above: Performed By: #### Bob WOODALL, CMP, 4-1 ####[facility] ([id number])[address] [place] [address] 72316#### 66793-1 ####[facility] ([id number])[address], [address], [place] [address] Sodium [Moles/Vol] 138 mmol/L Normal 134-146 [facility] Comment on above: Performed By: #### Bob BCA, CMP, 3083-1 ####[facility] ([id number])[address] [place] [address] 79900#### 25233-3 ####[facility] ([id number])[address] [facility], [address] [place] [address] 65514 Urea nitrogen [Mass/Vol] 8 mg/dL Normal 5-27 [facility] Comment on above: Performed By: #### C TALISHA, CMP, 3084-1 ####[facility] ([id number])[address] [place] [address] 29831#### 48628-0 ####[facility] ([id number])[address] [place] [address], [address] [place] [address] 28531 ESR Photometric method (Bld) [Velocity]on 12-15-2023 ESR, ERYTHROCYTE SEDIMENTATION RATE 14 mm/h Normal 0-20 [facility] Comment on above: Performed By: #### C TALISHA, CMP, 3083- ####[facility] ([id number])[address] [place] [address] 03948#### 83053-3 ####[facility] ([id number])[address] [place] [address], [address] [address] URIC ACIDon 12-15-2023 Urate [Mass/Vol] 4.0 mg/dL Normal 2.6-7.2 [facility] Comment on above: Performed By: #### C TALISHA, CMP, 3083- ####[facility] ([id number])[address] [place] [address] 74280#### 01733-7 ####[facility] ([id number])[address] [place] [address] 88382 CBC AND AUTO DIFFon 12-01-19 24 Eosinophils (Bld) [#/Vol] 0.4 10*3/uL Normal 0.0-0.4 [facility] Comment on above: Performed By: #### C MP, 2532-0, 3084-1, CBCA ####[facility] ([id number])[address] [place] [address] 49522#### 32155-0 ####[facility] ([id number])[address], [address], [place] [address] Eosinophils/100 WBC (Bld) 3.0 % Normal [facility] Comment on above: Performed By: #### C NICCI, 0, 3083-03, CBCA ####[facility] ([id number])[address] [place] [address] 25314#### 01182-7 ####[facility] ([id number])[address], [address] [place] [address] 58824 Erythrocyte distribution width (RBC) [Ratio] 19.3 % High 11.5-15.0 [facility] Comment on above: Performed By: #### C NICCI, 0, 3083-03, CBCA ####[facility] ([id number])[address] [place] [address] 84960#### 98769-9 ####[facility] ([id number])[address], [address] [place] [address] 26189 Hematocrit (Bld) [Volume fraction] 39.1 % Normal 39-49 [facility] Comment on above: Performed By: #### Bob GRAJEDA, 0, 3083-03, CBCA ####[facility] ([id number])[address] [place] [address] 27958#### 60885-7 ####[facility] ([id number])[address], [address], [place] [address] Hemoglobin (Bld) [Mass/Vol] 13.3 g/dL Normal 13.0-17.0 [facility] Comment on above: Performed By: #### C NICCI, 2532-0, 3083-03, CBCA ####[facility] ([id number])[address] [place] [address] 01365#### 53947-0 ####[facility] ([id number])[address], [place] [address] Lymphocytes (Bld) [#/Vol] 5.4 10*3/uL High 1.0-3.5 [facility] Comment on above: Performed By: #### C NICCI, 2532-0, 3083-, CBCA ####[facility] ([id number])[address] [place] [address] 85318#### 14265-9 ####[facility] ([id number])[address], [address] [place] [address] 73324 Lymphocytes/100 WBC (Bld) 44.5 % Normal [facility] Comment on above: Performed By: #### C NICCI, 2532-0, 3083-03, CBCA ####[facility] ([id number])[address] [place] [address] 59896#### 51361-6 ####[facility] ([id number])[address], [address], [place] [address] MCH (RBC) [Entitic mass] 35.3 pg High 27-34 [facility] Comment on above: Performed By: #### C NICCI, 2532-0, 3083-, CBCA ####[facility] ([id number])[address] [place] [address] 67508#### 73239-5 ####[facility] ([id number])[address] [place] [address] MCHC (RBC) [Mass/Vol] 34.0 g/dL Normal 32-36 [facility] Comment on above: Performed By: #### C NICCI, 2532-0, 3083-, CBCA ####[facility] ([id number])[address] [place] [address] 30351#### 22251-5 ####[facility] ([id number])[address], [address], [place] [address] MCV (RBC) [Entitic vol] 104 fL High 80-100 [facility] Comment on above: Performed By: #### C NICCI, 2532-0, 3083-, CBCA ####[facility] ([id number])[address] [place] [address] 40471#### 24914-7 ####[facility] ([id number])[address], [address] [place] [address] 48436 Monocytes (Bld) [#/Vol] 1.8 10*3/uL High 0-0.9 [facility] Comment on above: Performed By: #### C NICCI, 2-0, 3083-03, CBCA ####[facility] ([id number])[address] [place] [address] 71856#### 87315-2 ####[facility] ([id number])[address], [address] [place] [address] 15593 Monocytes/100 WBC (Bld) 14.9 % Normal [facility] Comment on above: Performed By: #### C NICCI, 2532-0, 3083-, CBCA ####[facility] ([id number])[address] [place] [address] 10760#### 55238-6 ####[facility] ([id number])[address], [place] [address] Neutrophils (Bld) [#/Vol] 4.6 10*3/uL Normal 1.5-6.6 [facility] Comment on above: Performed By: #### C NICCI, 2531-0, 3083-03, CBCA ####[facility] ([id number])[address] [place] [address] 01146#### 02566-6 ####[facility] ([id number])[address] [facility], [address], [place] [address] NUCLEATED RBC 8.9 /100 WBC High 0.0-1.0 [facility] Comment on above: Performed By: #### C NICCI, 2531-0, 3083-03, CBCA ####[facility] ([id number])[address] [place] [address] 98869#### 12951-3 ####[facility] ([id number])[address] [facility], [address] [place] [address] 02363 Platelet mean volume (Bld) [Entitic vol] 9.2 fL Normal 7-12 [facility] Comment on above: Performed By: #### Bob GRAJEDA, 0, 3083-03, CBCA ####[facility] ([id number])[address] [place] [address] 80945#### 37801-2 ####[facility] ([id number])[address], [address] [place] [address] 43856 Platelets (Bld) [#/Vol] 346 10*3/uL Normal 150-450 [facility] Comment on above: Performed By: #### Bob GRAJEDA, 0, 3083-03, CBCA ####[facility] ([id number])[address] [place] [address] 19250#### 09505-9 ####[facility] ([id number])[address] [facility], [address], [place] [address] RBC COUNT 3.76 X10E12/L Low 4.10-5.70 [facility] Comment on above: Performed By: #### C NICCI, , 3083-03, CBCA ####[facility] ([id number])[address] [place] [address] 99938#### 74129-0 ####[facility] ([id number])[address] [facility], [address] [place] [address] 11527 SEG NEUTROPHIL 37.6 % Normal [facility] Comment on above: Performed By: #### C NICCI, , 3083-03, CBCA ####[facility] ([id number])[address] [place] [address] 16229#### 30928-6 ####[facility] ([id number])[address] [facility], [address] [place] [address] 27250 WBC (Bld) [#/Vol] 12.2 10*3/uL High 4.0-11.0 [facility] Comment on above: Performed By: #### Bob GRAJEDA, , 3083-03, CBCA ####[facility] ([id number])[address] [place] [address] 35950#### 41888-7 ####[facility] ([id number])[address] [facility], [address] [place] [address] COMPREHENSIVE METABOLIC PANE Jalen 12-01-2023 Albumin [Mass/Vol] 3.2 g/dL Normal 3.2-5.3 [facility] Comment on above: Performed By: #### Bob GRAJEDA, 0, 3083-03, CBCA ####[facility] ([id number])[address] [place] [address] 20387#### [id number] ####[facility] ([id number])[address], [address], [place] [address] ALP [Catalytic activity/Vol] 76 U/L Normal 39-130 [facility] Comment on above: Performed By: #### C NICCI, 0, 3083-03, CBCA ####[facility] ([id number])[address] [place] [address] 14623#### [id number] ####[facility] ([id number])0 [facility], [address], [place] [address] ALT [Catalytic activity/Vol] 21 U/L Normal 0-40 [facility] Comment on above: Performed By: #### C NICCI, 0, 3083-03, CBCA ####[facility] ([id number])[address] [place] [address] 32664#### [id number] ####[facility] ([id number])[address]129 [facility], [address] [place] [address] Anion gap [Moles/Vol] 8 mmol/L Normal 5-15 [facility] Comment on above: Performed By: #### Bob GRAJEDA, , 3083-03, CBCA ####[facility] ([id number])[address] [place] [address] 11524#### [id number] ####[facility] ([id number])0 [facility], [address], [place] [address] AST [Catalytic activity/Vol] 27 U/L Normal 0-41 [facility] Comment on above: Performed By: #### Bob GRAJEDA, , 3083-03, CBCA ####[facility] ([id number])[address] [place] [address] 18959#### [id number] ####[facility] ([id number])[address], [place] [address] Bilirubin [Mass/Vol] 0.4 mg/dL Normal 0.3-1.2 [facility] Comment on above: Performed By: #### C NICCI, , 3083-03, CBCA ####[facility] ([id number])[address] [place] [address] 57696#### [id number] ####[facility] ([id number])[address], [place] [address] Calcium [Mass/Vol] 8.4 mg/dL Low 8.5-10.5 [facility] Comment on above: Performed By: #### C NICCI, , 3083-03, CBCA ####[facility] ([id number])[address] [place] [address] 80292#### [id number] ####[facility] ([id number])[address] [address] Chloride [Moles/Vol] 101 mmol/L Normal 98-109 [facility] Comment on above: Performed By: #### Bob GRAJEDA, , 3083-03, CBCA ####[facility] ([id number])[address] [place] [address] 97262#### [id number] ####[facility] ([id number])[address], [place] [address] CO2 [Moles/Vol] 27 mmol/L Normal 22-32 [facility] Comment on above: Performed By: #### C NICCI, , 3083-03, CBCA ####[facility] ([id number])[address] [place] [address] 27721#### [id number] ####[facility] ([id number])[address], [place] [address] Creatinine [Mass/Vol] 0.64 mg/dL Low 0.70-1.20 [facility] Comment on above: Result Comment: METH OD TRACEABLE TO IDMS STANDARD Performed By: #### C NICCI, , 3083-03, CBCA ####[facility] ([id number])[address] [place] [address] 21389#### [id number] ####[facility] ([id number])[address] [address] eGFR (CKD-EPI) NON-RACE DEPENDENT >90 Normal >59 [facility] Comment on above: Result Comment: Repo rted eGFR is based on theCKD-EPI 2020 equation that doesnot use a race coefficient. Performed By: #### C NICCI, , 3083-03, CBCA ####[facility] ([id number])[address] [place] [address] 43259#### 84358-6 ####[facility] ([id number])[address] [address] Glucose [Mass/Vol] 107 mg/dL High 65-99 [facility] Comment on above: Performed By: #### C NICCI, , 3083-03, CBCA ####[facility] ([id number])[address] [place] [address] 80660#### 27906-8 ####[facility] ([id number])[address] [address] Potassium [Moles/Vol] 3.5 mmol/L Normal 3.5-5.0 [facility] Comment on above: Performed By: #### C NICCI, , 3083-03, CBCA ####[facility] ([id number])[address] [place] [address] 10868#### 71513-6 ####[facility] ([id number])[address], [address] [place] [address] Protein [Mass/Vol] 6.0 g/dL Normal 6.0-8.0 [facility] Comment on above: Performed By: #### C NICCI, 0, 3083-03, CBCA ####[facility] ([id number])[address] [place] [address] 39759#### 26284-1 ####[facility] ([id number])0 [facility], [address] [place] [address]177 Sodium [Moles/Vol] 136 mmol/L Normal 134-146 [facility] Comment on above: Performed By: #### Bob GRAJEDA, 0, 3083-03, CBCA ####[facility] ([id number])[address] [place] [address] 59542#### 92828-2 ####[facility] ([id number])0 [facility], [address] [place] [address]81 Urea nitrogen [Mass/Vol] 9 mg/dL Normal 5-27 [facility] Comment on above: Performed By: #### Bob GRAJEDA, 0, 3083-03, CBCA ####[facility] ([id number])[address] [place] [address] 66798#### 88486-2 ####[facility] ([id number])[address], [address] [place] [address] ESR Photometric method (Bld) [Velocity]on 12-01-2023 ESR, ERYTHROCYTE SEDIMENTATION RATE 6 mm/h Normal 0-20 [facility] Comment on above: Performed By: #### Bob GRAJEDA, 2532-0, 3084-1, CBCA ####[facility] ([id number])[address] [place] [address] 80069#### 50620-3 ####[facility] ([id number])[address], [address] [place] [address]174 LDH [Catalytic activity/Vol] on 12-01-2023 LDH 222 U/L Normal 100-235 [facility] Comment on above: Performed By: #### C NICCI, 2532-0, 4-1, CBCA ####[facility] ([id number])[address] [place] [address] 24252#### 18221-4 ####[facility] ([id number])[address] [facility], [address] [place] [address] URIC ACIDon 12-01-2023 Urate [Mass/Vol] 4.5 mg/dL Normal 2.6-7.2 [facility] Comment on above: Performed By: #### C NICCI, 2532-0, 3083-1, CBCA ####[facility] ([id number])[address] [place] [address] 19615#### 31440-1 ####[facility] ([id number])[address] [facility], [address] [address] Office Visiton 11-24-2023 Follow-up visit [id number] Luke Haywood 1955 M Date Provider Department Center 11/24/2023 CARLOS TA CYNTHIA Damon Family History Problem Relation Age of Onset Coronary artery disease Father Coronary artery disease Brother Family Status - Relation Status Age at Father Brother Level of Service:14385 [place] OFFICE/OUTPATIENT ESTABLISHED LOW MDM 20 MIN Normal [facility] CBC AND AUTO DIFFon 11-17-19 24 Anisocytosis Ql (Bld) 2+ Abnormal NONE [facility] Comment on above: Performed By: #### C NICCI, 2532-0, 3083-, CBCA ####[facility] ([id number])[address] [place] [address] 56783#### 99310-9 ####[facility] ([id number])[address], [address], [place] [address] Eosinophils (Bld) [#/Vol] 0.4 10*3/uL Normal 0.0-0.4 [facility] Comment on above: Performed By: #### C NICCI, 2532-0, 3083-, CBCA ####[facility] ([id number])[address] [place] [address] 96232#### 94928-4 ####[facility] ([id number])[address], [address] [place] [address] Eosinophils/100 WBC (Bld) 4.0 % Normal [facility] Comment on above: Performed By: #### C NICCI, 2531-0, 3083-03, CBCA ####[facility] ([id number])[address] [place] [address] 01722#### 07087-1 ####[facility] ([id number])[address], [address], [place] [address] Erythrocyte distribution width (RBC) [Ratio] 20.4 % High 11.5-15.0 [facility] Comment on above: Performed By: #### C NICCI, 2532-0, 3083-, CBCA ####[facility] ([id number])[address] [place] [address] 04024#### 84903-1 ####[facility] ([id number])[address], [address], [place] [address] FRAGMENT 1+ Abnormal NONE [facility] Comment on above: Performed By: #### C NICCI, 2532-0, 4-1, CBCA ####[facility] ([id number])[address] [place] [address] 96558#### 45814-7 ####[facility] ([id number])[address], [address], [place] [address] Hematocrit (Bld) [Volume fraction] 37.4 % Low 39-49 [facility] Comment on above: Performed By: #### C NICCI, 2532-0, 4-1, CBCA ####[facility] ([id number])[address] [place] [address] 92170#### 35653-9 ####[facility] ([id number])[address], [address] [place] [address] Hemoglobin (Bld) [Mass/Vol] 12.5 g/dL Low 13.0-17.0 [facility] Comment on above: Performed By: #### C NICCI, 2532-0, 3083-, CBCA ####[facility] ([id number])[address] [place] [address] 19710#### 53152-4 ####[facility] ([id number])[address], [address] [place] [address] LYMPHOCYTE, ATYPICAL 6.0 % Normal [facility] Comment on above: Performed By: #### C NICCI, 2532-0, 3083-1, CBCA ####[facility] ([id number])[address] [place] [address] 48990#### 72708-5 ####[facility] ([id number])[address], [address] [place] [address] Lymphocytes (Bld) [#/Vol] 4.6 10*3/uL High 1.0-3.5 [facility] Comment on above: Performed By: #### Bob GRAJEDA, 2532-0, 4-1, CBCA ####[facility] ([id number])[address] [place] [address] 52987#### 94140-7 ####[facility] ([id number])[address], [address], [place] [address] Lymphocytes/100 WBC (Bld) 45.0 % Normal [facility] Comment on above: Performed By: #### C NICCI, 2532-0, 4-1, CBCA ####[facility] ([id number])[address] [place] [address] 48390#### 92207-0 ####[facility] ([id number])[address], [address] [place] [address] MCH (RBC) [Entitic mass] 34.5 pg High 27-34 [facility] Comment on above: Performed By: #### C NICCI, 2532-0, 3083-1, CBCA ####[facility] ([id number])[address] [place] [address] 71775#### 71187-7 ####[facility] ([id number])[address], [address] [place] [address] MCHC (RBC) [Mass/Vol] 33.4 g/dL Normal 32-36 [facility] Comment on above: Performed By: #### C NICCI, 2532-0, 3083-1, CBCA ####[facility] ([id number])[address] [place] [address] 79173#### 90609-2 ####[facility] ([id number])[address], [address], [place] [address] MCV (RBC) [Entitic vol] 103 fL High 80-100 [facility] Comment on above: Performed By: #### C NICCI, 2531-0, 3083-03, CBCA ####[facility] ([id number])[address] [place] [address] 21802#### 08020-7 ####[facility] ([id number])[address], [address] [place] [address] Monocytes (Bld) [#/Vol] 0.7 10*3/uL Normal 0-0.9 [facility] Comment on above: Performed By: #### C NICCI, 2531-0, 3083-03, CBCA ####[facility] ([id number])[address] [place] [address] 91388#### 02650-5 ####[facility] ([id number])[address], [address] [place] [address]344 Monocytes/100 WBC (Bld) 8.0 % Normal [facility] Comment on above: Performed By: #### C NICCI, 2531-0, 3083-03, CBCA ####[facility] ([id number])[address] [place] [address] 55390#### 80630-6 ####[facility] ([id number])[address], [address] [place] [address] Neutrophils (Bld) [#/Vol] 3.4 10*3/uL Normal 1.5-6.6 [facility] Comment on above: Performed By: #### C NICCI, 2531-0, 3083-03, CBCA ####[facility] ([id number])[address] [place] [address] 35677#### 40833-7 ####[facility] ([id number])[address], [address] [place] [address] OVALOCYTE 1+ Abnormal NONE [facility] Comment on above: Performed By: #### C NICCI, 2532-0, 3083-03, CBCA ####[facility] ([id number])[address] [place] [address] 92160#### 00306-5 ####[facility] ([id number])[address], [address], [place] [address] Platelet mean volume (Bld) [Entitic vol] 9.2 fL Normal 7-12 [facility] Comment on above: Performed By: #### C NICCI, 2532-0, 3083-03, CBCA ####[facility] ([id number])[address] [place] [address] 75134#### 60512-1 ####[facility] ([id number])[address], [address] [place] [address]298 Platelets (Bld) [#/Vol] 283 10*3/uL Normal 150-450 [facility] Comment on above: Performed By: #### Bob GRAJEDA, 2531-0, 3083-03, CBCA ####[facility] ([id number])[address] [place] [address] 26192#### 27992-1 ####[facility] ([id number])[address], [address] [place] [address] POLYCHROMASIA 1+ Abnormal NONE [facility] Comment on above: Performed By: #### Bob GRAJEDA, 2532-0, 3083-03, CBCA ####[facility] ([id number])[address] [place] [address] 37762#### 83145-8 ####[facility] ([id number])[address], [address], [place] [address] RBC COUNT 3.62 X10E12/L Low 4.10-5.70 [facility] Comment on above: Performed By: #### C NICCI, 2531-0, 3083-, CBCA ####[facility] ([id number])[address] [place] [address] 50185#### 39818-0 ####[facility] ([id number])[address], [address] [place] [address]131 SEG NEUTROPHIL 37.0 % Normal [facility] Comment on above: Performed By: #### C NICCI, 2531-0, 3083-03, CBCA ####[facility] ([id number])[address] [place] [address] 84490#### 76803-7 ####[facility] ([id number])[address] [facility], [address] [place] [address] WBC (Bld) [#/Vol] 9.1 10*3/uL Normal 4.0-11.0 [facility] Comment on above: Performed By: #### Bob GRAJEDA, 0, 3083-03, CBCA ####[facility] ([id number])[address] [place] [address] 68619#### 17875-2 ####[facility] ([id number])[address], [address] [place] [address] COMPREHENSIVE METABOLIC PANE Jalen 11-17-2023 Albumin [Mass/Vol] 3.1 g/dL Low 3.2-5.3 [facility] Comment on above: Performed By: #### Bob GRAJEDA, 2531-0, 3083-03, CBCA ####[facility] ([id number])[address] [place] [address] 23765#### 53163-6 ####[facility] ([id number])[address], [address], [place] [address] ALP [Catalytic activity/Vol] 84 U/L Normal 39-130 [facility] Comment on above: Performed By: #### Bob GRAJEDA, 2531-0, 3083-03, CBCA ####[facility] ([id number])[address] [place] [address] 64552#### 24504-3 ####[facility] ([id number])[address], [address], [place] [address] ALT [Catalytic activity/Vol] 28 U/L Normal 0-40 [facility] Comment on above: Performed By: #### Bob GRAJEDA, 2531-0, 3083-03, CBCA ####[facility] ([id number])[address] [place] [address] 69271#### 98438-2 ####[facility] ([id number])[address], [address] [place] [address] Anion gap [Moles/Vol] 7 mmol/L Normal 5-15 [facility] Comment on above: Performed By: #### Bob GRAJEDA, 0, 3083-03, CBCA ####[facility] ([id number])[address] [place] [address] 20125#### 19989-1 ####[facility] ([id number])[address], [address], [place] [address] AST [Catalytic activity/Vol] 31 U/L Normal 0-41 [facility] Comment on above: Performed By: #### Bob GRAJEDA, 0, 3083-03, CBCA ####[facility] ([id number])[address] [place] [address] 76094#### 15698-7 ####[facility] ([id number])[address], [address] [place] [address] Bilirubin [Mass/Vol] 0.5 mg/dL Normal 0.3-1.2 [facility] Comment on above: Performed By: #### Bob GRAJEDA, 0, 3083-03, CBCA ####[facility] ([id number])[address] [place] [address] 09821#### 05341-6 ####[facility] ([id number])[address], [address], [place] [address] Calcium [Mass/Vol] 8.5 mg/dL Normal 8.5-10.5 [facility] Comment on above: Performed By: #### Bob GRAJEDA, 0, 3083-03, CBCA ####[facility] ([id number])[address] [place] [address] 62172#### 03207-6 ####[facility] ([id number])[address], [address], [place] [address] Chloride [Moles/Vol] 102 mmol/L Normal 98-109 [facility] Comment on above: Performed By: #### Bob GRAJEDA, 0, 3083-03, CBCA ####[facility] ([id number])[address] [place] [address] 96772#### 15789-6 ####[facility] ([id number])[address], [address] [place] [address] CO2 [Moles/Vol] 28 mmol/L Normal 22-32 [facility] Comment on above: Performed By: #### Bob GRAJEDA, 0, 3083-03, CBCA ####[facility] ([id number])[address] [place] [address] 70386#### 53314-4 ####[facility] ([id number])[address], [address], [place] [address] Creatinine [Mass/Vol] 0.65 mg/dL Low 0.70-1.20 [facility] Comment on above: Result Comment: METH OD TRACEABLE TO IDMS STANDARD Performed By: #### C NICCI, 0, 3083-03, CBCA ####[facility] ([id number])[address] [place] [address] 92645#### 20768-5 ####[facility] ([id number])[address] [address] eGFR (CKD-EPI) NON-RACE DEPENDENT >90 Normal >59 [facility] Comment on above: Result Comment: Repo rted eGFR is based on theCKD-EPI 2020 equation that doesnot use a race coefficient. Performed By: #### C NICCI, , 3083-03, CBCA ####[facility] ([id number])[address] [place] [address] 62630#### 68680-8 ####[facility] ([id number])[address] [address] Glucose [Mass/Vol] 115 mg/dL High 65-99 [facility] Comment on above: Performed By: #### C NICCI, 0, 3083-03, CBCA ####[facility] ([id number])[address] [place] [address] 08327#### 09238-1 ####[facility] ([id number])[address] [address] Potassium [Moles/Vol] 3.8 mmol/L Normal 3.5-5.0 [facility] Comment on above: Performed By: #### C NICCI, 0, 3083-03, CBCA ####[facility] ([id number])[address] [place] [address] [place] [address]#### 12328-7 ####[facility] ([id number])[address] [facility], [address] [place] [address]958 Protein [Mass/Vol] 5.9 g/dL Low 6.0-8.0 [facility] Comment on above: Performed By: #### C NICCI, 2531-0, 3083-1, CBCA ####[facility] ([id number])[address] [place] [address] 21762#### 66719-7 ####[facility] ([id number])[address] [facility], [address] [place] [address] Sodium [Moles/Vol] 137 mmol/L Normal 134-146 [facility] Comment on above: Performed By: #### Bob GRAJEDA, 2531-0, 3083-03, CBCA ####[facility] ([id number])[address] [place] [address] 41282#### 50588-0 ####[facility] ([id number])[address] [facility], [address] [address] Urea nitrogen [Mass/Vol] 9 mg/dL Normal 5-27 [facility] Comment on above: Performed By: #### Bob GRAJEDA, 0, 3083-03, CBCA ####[facility] ([id number])[address] [place] [address] 41505#### 03588-7 ####[facility] ([id number])[address] [facility], [address] [place] [address] ESR Photometric method (Bld) [Velocity]on 11-17-2023 ESR, ERYTHROCYTE SEDIMENTATION RATE 9 mm/h Normal 0-20 [facility] Comment on above: Performed By: #### Bob GRAJEDA, 0, 3083-03, CBCA ####[facility] ([id number])[address] [place] [address] 71945#### 41572-5 ####[facility] ([id number])[address], [address] [place] [address] 50433 LDH [Catalytic activity/Vol] on 11-17-2023 LDH 197 U/L Normal 100-235 [facility] Comment on above: Performed By: #### Bob GRAJEDA, 2532-0, 3083-, CBCA ####[facility] ([id number])[address] [place] [address] 53593#### 32854-9 ####[facility] ([id number])[address] [facility], [address] [place] [address] 83003 URIC ACIDon 11-17-2023 Urate [Mass/Vol] 4.5 mg/dL Normal 2.6-7.2 [facility] Comment on above: Performed By: #### Bob GRAJEDA, 2531-0, 3083-03, CBCA ####[facility] ([id number])[address] [place] [address] 28293#### 05054-1 ####[facility] ([id number])[address], [address] [place] [address] 52663 CBC AND AUTO DIFFon 11-03-19 24 ABSOLUTE BASOPHIL 0.1 X10E9/L Normal 0.0-0.2 [facility] Comment on above: Performed By: #### Bob GRAJEDA, 3083-03, CBCA ####[facility] ([id number])[address] [place] [address] 49894 ACANTHOCYTE 1+ Abnormal NONE [facility] Comment on above: Performed By: #### Bob GRAJEDA, 3083-03, CBCA ####[facility] ([id number])[address], [place] [address] Band form neutrophils/100 WBC (Bld) 1.0 % Normal [facility] Comment on above: Performed By: #### C NICCI, 3083-03, CBCA ####[facility] ([id number])[address] [place] [address], [place] [address] Basophils/100 WBC (Bld) 1.0 % Normal [facility] Comment on above: Performed By: #### C NICCI, 3083-03, CBCA ####[facility] ([id number])[address] [place] [address] 33960 Eosinophils (Bld) [#/Vol] 0.7 10*3/uL High 0.0-0.4 [facility] Comment on above: Performed By: #### C NICCI, 3083-03, CBCA ####[facility] ([id number])[address] [place] [address] 10618 Eosinophils/100 WBC (Bld) 6.0 % Normal [facility] Comment on above: Performed By: #### Bob GRAJEDA, 3083-03, CBCA ####[facility] ([id number])[address] [place] [address] 21672 Erythrocyte distribution width (RBC) [Ratio] 21.0 % High 11.5-15.0 [facility] Comment on above: Performed By: #### Bob GRAJEDA, 3083-03, CBCA ####[facility] ([id number])[address] [place] [address] 21198 Hematocrit (Bld) [Volume fraction] 38.1 % Low 39-49 [facility] Comment on above: Performed By: #### Bob GRAJEDA, 3083-03, CBCA ####[facility] ([id number])[address] [place] [address] 93616 Hemoglobin (Bld) [Mass/Vol] 12.7 g/dL Low 13.0-17.0 [facility] Comment on above: Performed By: #### C NICCI, 3083-03, CBCA ####[facility] ([id number])[address] [place] [address] [place] [address] WINN-JOLLY BODY 1+ Abnormal NONE [facility] Comment on above: Performed By: #### Bob GRAJEDA, 3083-03, CBCA ####[facility] ([id number])[address] [place] [address] 28714 LYMPHOCYTE, ATYPICAL 1.0 % Normal [facility] Comment on above: Performed By: #### Bob GRAJEDA, 3083-03, CBCA ####[facility] ([id number])[address] [place] [address] 58671 Lymphocytes (Bld) [#/Vol] 4.4 10*3/uL High 1.0-3.5 [facility] Comment on above: Performed By: #### Bob GRAJEDA, 3083-03, CBCA ####[facility] ([id number])[address] [place] [address] 90232 Lymphocytes/100 WBC (Bld) 36.0 % Normal [facility] Comment on above: Performed By: #### Bob GRAJEDA, 3083-03, CBCA ####[facility] ([id number])[address] [place] [address] 86707 MCH (RBC) [Entitic mass] 33.9 pg Normal 27-34 [facility] Comment on above: Performed By: #### Bob GRAJEDA, 3083-03, CBCA ####[facility] ([id number])[address] [place] [address] 25438 MCHC (RBC) [Mass/Vol] 33.4 g/dL Normal 32-36 [facility] Comment on above: Performed By: #### Bob GRAJEDA, 3083-03, CBCA ####[facility] ([id number])[address] [place] [address] 82405 MCV (RBC) [Entitic vol] 102 fL High 80-100 [facility] Comment on above: Performed By: #### C NICCI, 3083-03, CBCA ####[facility] ([id number])[address] [place] [address] 85087 Monocytes (Bld) [#/Vol] 1.9 10*3/uL High 0-0.9 [facility] Comment on above: Performed By: #### C NICCI, 3083-03, CBCA ####[facility] ([id number])[address] [place] [address] 36008 Monocytes/100 WBC (Bld) 16.0 % Normal [facility] Comment on above: Performed By: #### Bob GRAJEDA, 3083-03, CBCA ####[facility] ([id number])[address] [place] [address] 67324 Neutrophils (Bld) [#/Vol] 4.8 10*3/uL Normal 1.5-6.6 [facility] Comment on above: Performed By: #### Bob GRAJEDA, 3083-03, CBCA ####[facility] ([id number])[address] [place] [address] 77041 NUCLEATED RBC 6.0 /100 WBC High 0.0-1.0 [facility] Comment on above: Performed By: #### Bob GRAJEDA, 3083-03, CBCA ####[facility] ([id number])[address] [place] [address] 10537 OVALOCYTE 1+ Abnormal NONE [facility] Comment on above: Performed By: #### Bob GRAJEDA, 3083-03, CBCA ####[facility] ([id number])[address] [place] [address] 03553 Platelet mean volume (Bld) [Entitic vol] 9.4 fL Normal 7-12 [facility] Comment on above: Performed By: #### C NICCI, 3083-03, CBCA ####[facility] ([id number])[address] [place] [address] 98560 Platelets (Bld) [#/Vol] 315 10*3/uL Normal 150-450 [facility] Comment on above: Performed By: #### C NICCI, 3083-03, CBCA ####[facility] ([id number])[address] [place] [address] [address] RBC COUNT 3.75 X10E12/L Low 4.10-5.70 [facility] Comment on above: Performed By: #### C NICCI, 3083-03, CBCA ####[facility] ([id number])[address] [place] [address] 55187 SEG NEUTROPHIL 39.0 % Normal [facility] Comment on above: Performed By: #### Bob GRAJEDA, 3083-03, CBCA ####[facility] ([id number])[address] [place] [address] 62768 WBC (Bld) [#/Vol] 11.9 10*3/uL High 4.0-11.0 [facility] Comment on above: Performed By: #### C NICCI, 3083-03, CBCA ####[facility] ([id number])[address] [place] [address] 99739 COMPREHENSIVE METABOLIC PANE Jalen 11-03-2023 Albumin [Mass/Vol] 2.8 g/dL Low 3.2-5.3 [facility] Comment on above: Performed By: #### C NICCI, 3083-03, CBCA ####[facility] ([id number])[address] [place] [address] 76693 ALP [Catalytic activity/Vol] 100 U/L Normal 39-130 [facility] Comment on above: Performed By: #### C NICCI, 3083-03, CBCA ####[facility] ([id number])[address] [place] [address], [place] [address] ALT [Catalytic activity/Vol] 28 U/L Normal 0-40 [facility] Comment on above: Performed By: #### C NICCI, 3083-03, CBCA ####[facility] ([id number])[address] [place] [address], [place] [address] Anion gap [Moles/Vol] 9 mmol/L Normal 5-15 [facility] Comment on above: Performed By: #### Bob GRAJEDA, 3083-03, CBCA ####[facility] ([id number])[address] [place] [address], [place] [address] AST [Catalytic activity/Vol] 32 U/L Normal 0-41 [facility] Comment on above: Performed By: #### Bob GRAJEDA, 3083-03, CBCA ####[facility] ([id number])[address] [place] [address], [place] [address] Bilirubin [Mass/Vol] 0.4 mg/dL Normal 0.3-1.2 [facility] Comment on above: Performed By: #### Bob GRAJEDA, 3083-03, CBCA ####[facility] ([id number])[address] [place] [address], [place] [address] Calcium [Mass/Vol] 8.4 mg/dL Low 8.5-10.5 [facility] Comment on above: Performed By: #### Bob GRAJEDA, 3083-03, CBCA ####[facility] ([id number])[address] [place] [address] [place] [address] Chloride [Moles/Vol] 101 mmol/L Normal 98-109 [facility] Comment on above: Performed By: #### Bob GRAJEDA, 3083-03, CBCA ####[facility] ([id number])[address] [place] [address] 64047 CO2 [Moles/Vol] 26 mmol/L Normal 22-32 [facility] Comment on above: Performed By: #### Bob GRAJEDA, 3083-03, CBCA ####[facility] ([id number])[address] [place] [address] 38882 Creatinine [Mass/Vol] 0.64 mg/dL Low 0.70-1.20 [facility] Comment on above: Result Comment: METH OD TRACEABLE TO IDMS STANDARD Performed By: #### C NICCI, 3083-03, CBCA ####[facility] ([id number])[address] [place] [address] 52293 eGFR (CKD-EPI) NON-RACE DEPENDENT >90 Normal >59 [facility] Comment on above: Result Comment: Repo rted eGFR is based on theCKD-EPI 2020 equation that doesnot use a race coefficient. Performed By: #### Bob GRAJEDA, 3083-03, CBCA ####[facility] ([id number])[address] [place] [address] 40105 Glucose [Mass/Vol] 135 mg/dL High 65-99 [facility] Comment on above: Performed By: #### Bob GRAJEDA, 3083-03, CBCA ####[facility] ([id number])[address] [place] [address] 42409 Potassium [Moles/Vol] 3.7 mmol/L Normal 3.5-5.0 [facility] Comment on above: Performed By: #### Bob GRAJEDA, 3083-03, CBCA ####[facility] ([id number])[address] [place] [address] 33517 Protein [Mass/Vol] 6.1 g/dL Normal 6.0-8.0 [facility] Comment on above: Performed By: #### Bob GRAJEDA, 3083-03, CBCA ####[facility] ([id number])[address] [place] [address] 37770 Sodium [Moles/Vol] 136 mmol/L Normal 134-146 [facility] Comment on above: Performed By: #### C MP, 3083-03, CBCA ####[facility] ([id number])[address] [place] [address] 00216 Urea nitrogen [Mass/Vol] 11 mg/dL Normal 5-27 [facility] Comment on above: Performed By: #### C MP, 3083-03, CBCA ####[facility] ([id number])[address] [place] [address] 02986 ESR Photometric method (Bld) [Velocity]on 11-03-2023 ESR, ERYTHROCYTE SEDIMENTATION RATE 17 mm/h Normal 0-20 [facility] Comment on above: Performed By: #### C MP, 3083-03, CBCA ####[facility] ([id number])[address] [place] [address] 81147 URIC ACIDon 11-03-2023 Urate [Mass/Vol] 4.1 mg/dL Normal 2.6-7.2 [facility] Comment on above: Performed By: #### C MP, 3083-03, CBCA ####[facility] ([id number])[address] [place] [address] 65865 CBC AND AUTO DIFFon 10-27-19 24 Eosinophils (Bld) [#/Vol] 0.3 10*3/uL Normal 0.0-0.4 [facility] Comment on above: Performed By: #### C BCA, CMP, 3083-03 ####[facility] ([id number])[address] [place] [address] 34416#### 33659-9 ####[facility] ([id number])[address] [place] [address], [address], [place] [address] Eosinophils/100 WBC (Bld) 2.0 % Normal [facility] Comment on above: Performed By: #### Bob WOODALL CMP, 3084-1 ####[facility] ([id number])[address] [place] [address] 62750#### 37024-4 ####[facility] ([id number])[address], [address] [place] [address]18 Erythrocyte distribution width (RBC) [Ratio] 20.4 % High 11.5-15.0 [facility] Comment on above: Performed By: #### Bob WOODALL, CMP, 3084-1 ####[facility] ([id number])[address] [place] [address] 52838#### 18972-8 ####[facility] ([id number])[address], [address] [place] [address] 44371 Hematocrit (Bld) [Volume fraction] 39.3 % Normal 39-49 [facility] Comment on above: Performed By: #### Bob WOODALL, CMP, 3084-1 ####[facility] ([id number])[address] [place] [address] 78674#### 06127-6 ####[facility] ([id number])[address], [address] [place] [address] 32441 Hemoglobin (Bld) [Mass/Vol] 13.4 g/dL Normal 13.0-17.0 [facility] Comment on above: Performed By: #### Bob WOODALL, CMP, 3084-1 ####[facility] ([id number])[address] [place] [address] 12173#### 19492-5 ####[facility] ([id number])[address], [address], [place] [address] WINN-JOLLY BODY 1+ Abnormal NONE [facility] Comment on above: Performed By: #### C BCA, CMP, 3084-1 ####[facility] ([id number])[address] [place] [address] 47543#### 01381-2 ####[facility] ([id number])[address], [address], [place] [address] Lymphocytes (Bld) [#/Vol] 8.6 10*3/uL High 1.0-3.5 [facility] Comment on above: Performed By: #### C BCA, CMP, 3084-1 ####[facility] ([id number])[address] [place] [address] 95816#### 62342-0 ####[facility] ([id number])[address], [address] [place] [address] 64629 Lymphocytes/100 WBC (Bld) 56.0 % Normal [facility] Comment on above: Performed By: #### C BCA, CMP, 3084- ####[facility] ([id number])[address] [place] [address] 56977#### 37049-6 ####[facility] ([id number])[address], [address], [place] [address] MCH (RBC) [Entitic mass] 34.2 pg High 27-34 [facility] Comment on above: Performed By: #### C BCA, CMP, 3084-1 ####[facility] ([id number])[address] [place] [address] 40527#### 33037-2 ####[facility] ([id number])[address], [address] [place] [address] MCHC (RBC) [Mass/Vol] 34.1 g/dL Normal 32-36 [facility] Comment on above: Performed By: #### C BCA, CMP, 308- ####[facility] ([id number])[address] [place] [address] 15659#### 54004-8 ####[facility] ([id number])[address], [address], [place] [address] MCV (RBC) [Entitic vol] 100 fL Normal 80-100 [facility] Comment on above: Performed By: #### C BCA, CMP, 4- ####[facility] ([id number])[address] [place] [address] 75394#### 96079-9 ####[facility] ([id number])[address], [address], [place] [address] Monocytes (Bld) [#/Vol] 2.0 10*3/uL High 0-0.9 [facility] Comment on above: Performed By: #### Bob BCA, CMP, 3083- ####[facility] ([id number])[address] [place] [address] 14950#### 34713-4 ####[facility] ([id number])[address], [address] [place] [address] 00837 Monocytes/100 WBC (Bld) 13.0 % Normal [facility] Comment on above: Performed By: #### Bob BCA, CMP, 4- ####[facility] ([id number])[address] [place] [address] 90236#### 73348-8 ####[facility] ([id number])[address], [address], [place] [address] Neutrophils (Bld) [#/Vol] 4.5 10*3/uL Normal 1.5-6.6 [facility] Comment on above: Performed By: #### C BCA, CMP, 3084-1 ####[facility] ([id number])[address] [place] [address] 16798#### 67330-4 ####[facility] ([id number])[address], [address], [place] [address] Platelet mean volume (Bld) [Entitic vol] 9.2 fL Normal 7-12 [facility] Comment on above: Performed By: #### Bob WOODALL, CMP, 3083- ####[facility] ([id number])[address] [place] [address] 13945#### 77968-6 ####[facility] ([id number])[address], [address] [place] [address] 66473 Platelets (Bld) [#/Vol] 361 10*3/uL Normal 150-450 [facility] Comment on above: Performed By: #### Bob WOODALL, CMP, 3083- ####[facility] ([id number])[address] [place] [address] 32061#### 69014-2 ####[facility] ([id number])[address], [address] [place] [address] 08689 RBC COUNT 3.93 X10E12/L Low 4.10-5.70 [facility] Comment on above: Performed By: #### Bob WODOALL, CMP, 3083- ####[facility] ([id number])[address] [place] [address] 99749#### 41829-4 ####[facility] ([id number])[address], [address], [place] [address] RBC morphology finding Nom (Bld) REVIEWED Normal [facility] Comment on above: Performed By: #### Bob BCA, CMP, 3083- ####[facility] ([id number])[address] [place] [address] 45657#### 67025-6 ####[facility] ([id number])[address] [place] [address], [address] [place] [address] 42226 SEG NEUTROPHIL 29.0 % Normal [facility] Comment on above: Performed By: #### C BCA, CMP, 3084-1 ####[facility] ([id number])[address] [place] [address] 37811#### 91812-0 ####[facility] ([id number])[address] [place] [address], [address] [place] [address] 19381 WBC (Bld) [#/Vol] 15.4 10*3/uL High 4.0-11.0 [facility] Comment on above: Performed By: #### C BCA, CMP, 3084-1 ####[facility] ([id number])[address] [place] [address] 13975#### 02447-3 ####[facility] ([id number])[address] [place] [address], [address] [place] [address] 08536 COMPREHENSIVE METABOLIC PANE Jalen 10-27-2023 Albumin [Mass/Vol] 3.1 g/dL Low 3.2-5.3 [facility] Comment on above: Performed By: #### C BCA, CMP, 3084-1 ####[facility] ([id number])[address] [place] [address] 36376#### 04286-0 ####[facility] ([id number])[address] [place] [address] [place] [address] 58290 ALP [Catalytic activity/Vol] 103 U/L Normal 39-130 [facility] Comment on above: Performed By: #### C BCA, CMP, 3084-1 ####[facility] ([id number])[address] [place] [address]#### 92847-4 ####[facility] ([id number])[address] [facility], [address], [place] [address] ALT [Catalytic activity/Vol] 58 U/L High 0-40 [facility] Comment on above: Performed By: #### Bob BCA, CMP, 3084-1 ####[facility] ([id number])[address] [place] [address] 23001#### 80669-9 ####[facility] ([id number])[address] [facility], [address] [place] [address] 35441 Anion gap [Moles/Vol] 10 mmol/L Normal 5-15 [facility] Comment on above: Performed By: #### Bob BCA, CMP, 3084-1 ####[facility] ([id number])[address] [place] [address] 06634#### 83334-4 ####[facility] ([id number])[address] [facility], [address] [place] [address] 72474 AST [Catalytic activity/Vol] 75 U/L High 0-41 [facility] Comment on above: Performed By: #### C BCA, CMP, 3084-1 ####[facility] ([id number])[address] [place] [address] 19464#### 42005-5 ####[facility] ([id number])[address] [facility], [address], [place] [address] Bilirubin [Mass/Vol] 0.4 mg/dL Normal 0.3-1.2 [facility] Comment on above: Performed By: #### C BCA, CMP, 3084-1 ####[facility] ([id number])[address] [place] [address] 31925#### 82066-0 ####[facility] ([id number])[address], [address], [place] [address] Calcium [Mass/Vol] 8.8 mg/dL Normal 8.5-10.5 [facility] Comment on above: Performed By: #### C BCA, CMP, 3084-1 ####[facility] ([id number])[address] [place] [address] 14646#### 34337-3 ####[facility] ([id number])[address], [address] [place] [address] Chloride [Moles/Vol] 98 mmol/L Normal 98-109 [facility] Comment on above: Performed By: #### C BCA, CMP, 3084-1 ####[facility] ([id number])[address] [place] [address] 18602#### 44889-2 ####[facility] ([id number])[address], [address] [place] [address] CO2 [Moles/Vol] 26 mmol/L Normal 22-32 [facility] Comment on above: Performed By: #### C BCA, CMP, 3084-1 ####[facility] ([id number])[address] [place] [address] 47394#### 03727-4 ####[facility] ([id number])[address], [address] [place] [address] Creatinine [Mass/Vol] 0.74 mg/dL Normal 0.70-1.20 [facility] Comment on above: Result Comment: METH OD TRACEABLE TO IDMS STANDARD Performed By: #### C BCA, CMP, 3084-1 ####[facility] ([id number])[address] [place] [address] 65369#### 75218-3 ####[facility] ([id number])[address], [address], [place] [address] eGFR (CKD-EPI) NON-RACE DEPENDENT >90 Normal >59 [facility] Comment on above: Result Comment: Repo rted eGFR is based on theCKD-EPI 2020 equation that doesnot use a race coefficient. Performed By: #### C BCA, CMP, 3084-1 ####[facility] ([id number])[address] [place] [address] 25154#### 55787-1 ####[facility] ([id number])[address], [address] [place] [address] 95375 Glucose [Mass/Vol] 101 mg/dL High 65-99 [facility] Comment on above: Performed By: #### C TALISHA, CMP, 3084-1 ####[facility] ([id number])[address] [place] [address] 48402#### 82526-8 ####[facility] ([id number])[address], [address] [place] [address] 38867 Potassium [Moles/Vol] 3.4 mmol/L Low 3.5-5.0 [facility] Comment on above: Performed By: #### Bob BCA, CMP, 3084-1 ####[facility] ([id number])[address] [place] [address] 39796#### 95972-4 ####[facility] ([id number])[address] [address] [place] [address] 15852 Protein [Mass/Vol] 7.0 g/dL Normal 6.0-8.0 [facility] Comment on above: Performed By: #### C BCA, CMP, 3084-1 ####[facility] ([id number])[address] [place] [address] 77227#### 86721-0 ####[facility] ([id number])[address], [address], [place] [address] Sodium [Moles/Vol] 134 mmol/L Normal 134-146 [facility] Comment on above: Performed By: #### C BCA, CMP, 3084-1 ####[facility] ([id number])[address] [place] [address] 01636#### 38584-6 ####[facility] ([id number])[address], [address], [place] [address] Urea nitrogen [Mass/Vol] 18 mg/dL Normal 5-27 [facility] Comment on above: Performed By: #### C BCA, CMP, 3084-1 ####[facility] ([id number])[address] [place] [address] 16877#### 64747-4 ####[facility] ([id number])[address], [address] [place] [address] 08118 ESR Photometric method (Bld) [Velocity]on 10-27-2023 ESR, ERYTHROCYTE SEDIMENTATION RATE 43 mm/h High 0-20 [facility] Comment on above: Performed By: #### C BCA, CMP, 3084-1 ####[facility] ([id number])[address] [place] [address] 00379#### 63437-5 ####[facility] ([id number])[address], [address] [place] [address] 62713 URIC ACIDon 10-27-2023 Urate [Mass/Vol] 4.0 mg/dL Normal 2.6-7.2 [facility] Comment on above: Performed By: #### C BCA, CMP, 3084-1 ####[facility] ([id number])[address] [place] [address] 80651#### 45515-6 ####[facility] ([id number])[address], [address] [place] [address] BASIC METABOLIC PANLon 10-19 Anion gap [Moles/Vol] 10 mmol/L Normal 5-15 [facility] Comment on above: Performed By: #### C BCA, BMP, 2532-0, 3083-1 ####[facility] ([id number])[address] [place] [address] 51915#### 33363-8 ####[facility] ([id number])[address] [facility], [address] [place] [address] 12273 Calcium [Mass/Vol] 8.7 mg/dL Normal 8.5-10.5 [facility] Comment on above: Performed By: #### C BCA, BMP, 2531-0, 3083- ####[facility] ([id number])[address] [place] [address] 92525#### 26622-9 ####[facility] ([id number])[address] [facility], [address] [place] [address] 77976 Chloride [Moles/Vol] 97 mmol/L Low 98-109 [facility] Comment on above: Performed By: #### C BCA, BMP, 253-0, 3083- ####[facility] ([id number])[address] [place] [address] 13685#### 20904-9 ####[facility] ([id number])[address], [address], [place] [address] CO2 [Moles/Vol] 28 mmol/L Normal 22-32 [facility] Comment on above: Performed By: #### C BCA, BMP, 253-0, 3083-1 ####[facility] ([id number])[address] [place] [address] 58377#### 77814-5 ####[facility] ([id number])[address] [address] Creatinine [Mass/Vol] 0.79 mg/dL Normal 0.70-1.20 [facility] Comment on above: Result Comment: METH OD TRACEABLE TO IDMS STANDARD Performed By: #### C TALISHA BMP, 0, 3083-03 ####[facility] ([id number])[address] [place] [address] 22807#### 97825-7 ####[facility] ([id number])[address] [address] eGFR (CKD-EPI) NON-RACE DEPENDENT >90 Normal >59 [facility] Comment on above: Result Comment: Repo rted eGFR is based on theCKD-EPI 2020 equation that doesnot use a race coefficient. Performed By: #### C BCA, BMP, 0, 3083-03 ####[facility] ([id number])[address] [place] [address] 98046#### 98598-2 ####[facility] ([id number])[address] [address] Glucose [Mass/Vol] 99 mg/dL Normal 65-99 [facility] Comment on above: Performed By: #### C BCA, BMP, 0, 3083-03 ####[facility] ([id number])[address] [place] [address] 82250#### 70603-9 ####[facility] ([id number])[address], [address] [address] Potassium [Moles/Vol] 4.0 mmol/L Normal 3.5-5.0 [facility] Comment on above: Performed By: #### C BCA, BMP, 0, 3083-03 ####[facility] ([id number])[address] [place] [address]#### [id number] ####[facility] ([id number])[address], [address], [place] [address] Sodium [Moles/Vol] 135 mmol/L Normal 134-146 [facility] Comment on above: Performed By: #### C BCA, BMP, 2531-0, 3083- ####[facility] ([id number])[address] [place] [address]#### [id number] ####[facility] ([id number])[address] [facility], [address] [place] [address] Urea nitrogen [Mass/Vol] 13 mg/dL Normal 5-27 [facility] Comment on above: Performed By: #### C BCA, BMP, 0, 3083-03 ####[facility] ([id number])[address] [place] [address]4057#### [id number] ####[facility] ([id number])[address], [address] [place] [address] CBC AND AUTO DIFFon -23-20 24 ABSOLUTE BASOPHIL 0.3 X10E9/L High 0.0-0.2 [facility] Comment on above: Performed By: #### C BCA, BMP, 0, 3083-03 ####[facility] ([id number])[address] [place] [address] 29951#### [id number] ####[facility] ([id number])[address], [address] [place] [address] ACANTHOCYTE 1+ Abnormal NONE [facility] Comment on above: Performed By: #### C BCA, BMP, 2532-0, 3084-1 ####[facility] ([id number])[address] [place] [address] 367[address]#### [id number] ####[facility] ([id number])[address], [address], [place] [address] Basophils/100 WBC (Bld) 1.9 % Normal [facility] Comment on above: Performed By: #### C BCA, BMP, 0, 3083- ####[facility] ([id number])[address] [place] [address] 35141#### [id number] ####[facility] ([id number])[address], [address], [place] [address] Erythrocyte distribution width (RBC) [Ratio] 20.5 % High 11.5-15.0 [facility] Comment on above: Performed By: #### C BCA, [facility], 0, 3083-03 ####[facility] ([id number])[address] [place] [address]#### 59704-3 ####[facility] ([id number])[address], [address], [place] [address] Hematocrit (Bld) [Volume fraction] 37.9 % Low 39-49 [facility] Comment on above: Performed By: #### C BCA, BMP, 0, 3083-03 ####[facility] ([id number])[address] [place] [address] 24378#### [id number] ####[facility] ([id number])[address], [address] [place] [address] Hemoglobin (Bld) [Mass/Vol] 12.5 g/dL Low 13.0-17.0 [facility] Comment on above: Performed By: #### C BCA, BMP, 0, 3083-03 ####[facility] ([id number])[address] [place] [address]#### 50213-4 ####[facility] ([id number])[address], [address], [place] [address] [facility] 1+ Abnormal NONE [facility] Comment on above: Performed By: #### C BCA, BMP, 0, 3083-03 ####[facility] ([id number])[address] [place] [address] 62284#### [id number] ####[facility] ([id number])[address], [address] [place] [address] LYMPHOCYTE, ATYPICAL 2.9 % Normal [facility] Comment on above: Performed By: #### C BCA, BMP, 0, 3083-03 ####[facility] ([id number])[address] [place] [address] 10041#### 98015-1 ####[facility] ([id number])[address], [address], [place] [address] Lymphocytes (Bld) [#/Vol] 4.4 10*3/uL High 1.0-3.5 [facility] Comment on above: Performed By: #### C BCA, BMP, 0, 3083-03 ####[facility] ([id number])[address] [place] [address] 26475#### 11363-1 ####[facility] ([id number])[address], [address], [place] [address] Lymphocytes/100 WBC (Bld) 28.8 % Normal [facility] Comment on above: Performed By: #### C BCA, BMP, 0, 3083-03 ####[facility] ([id number])[address] [place] [address] 10568#### 48174-0 ####[facility] ([id number])[address], [address], [place] [address] MCH (RBC) [Entitic mass] 33.0 pg Normal 27-34 [facility] Comment on above: Performed By: #### C TALISHA [facility], 2531-0, 3083- ####[facility] ([id number])[address] [place] [address] 43120#### 67106-9 ####[facility] ([id number])[address], [address], [place] [address] MCHC (RBC) [Mass/Vol] 32.9 g/dL Normal 32-36 [facility] Comment on above: Performed By: #### C TALISHA, [facility], 0, 3083-03 ####[facility] ([id number])[address] [place] [address] 88982#### 56212-1 ####[facility] ([id number])[address], [address] [place] [address] MCV (RBC) [Entitic vol] 101 fL High 80-100 [facility] Comment on above: Performed By: #### Bob WOODALL, BMP, 0, 3083-03 ####[facility] ([id number])[address] [place] [address] 76498#### 87830-4 ####[facility] ([id number])[address], [address], [place] [address] Monocytes (Bld) [#/Vol] 2.5 10*3/uL High 0-0.9 [facility] Comment on above: Performed By: #### Bob BCA, BMP, 2-0, 3083-03 ####[facility] ([id number])[address] [place] [address] 33632#### 54002-1 ####[facility] ([id number])[address], [place] [address] Monocytes/100 WBC (Bld) 18.3 % Normal [facility] Comment on above: Performed By: #### C TALISHA, [facility], 2532-0, 3083- ####[facility] ([id number])[address] [place] [address] 14029#### 32265-0 ####[facility] ([id number])[address], [address], [place] [address] Neutrophils (Bld) [#/Vol] 6.6 10*3/uL Normal 1.5-6.6 [facility] Comment on above: Performed By: #### C TALISHA, [facility], 0, 3083-03 ####[facility] ([id number])[address] [place] [address] 06845#### 97878-3 ####[facility] ([id number])[address], [address], [place] [address] Platelet mean volume (Bld) [Entitic vol] 8.8 fL Normal 7-12 [facility] Comment on above: Performed By: #### C TALISHA, BMP, 0, 3083- ####[facility] ([id number])[address] [place] [address] 77828#### 64454-6 ####[facility] ([id number])[address], [address] [place] [address] Platelets (Bld) [#/Vol] 560 10*3/uL High 150-450 [facility] Comment on above: Performed By: #### C BCA, BMP, 2532-0, 3084-1 ####[facility] ([id number])[address] [place] [address] 70302#### 01155-7 ####[facility] ([id number])[address], [address], [place] [address] RBC COUNT 3.78 X10E12/L Low 4.10-5.70 [facility] Comment on above: Performed By: #### C BCA, BMP, 2532-0, 3084-1 ####[facility] ([id number])[address] [place] [address] 21837#### 16481-8 ####[facility] ([id number])[address], [address] [place] [address] SEG NEUTROPHIL 48.1 % Normal [facility] Comment on above: Performed By: #### C BCA, BMP, 2-0, 4-1 ####[facility] ([id number])[address] [place] [address] 33974#### 29616-1 ####[facility] ([id number])[address], [address] [place] [address] WBC (Bld) [#/Vol] 13.8 10*3/uL High 4.0-11.0 [facility] Comment on above: Performed By: #### C BCA, BMP, 2532-0, 3084-1 ####[facility] ([id number])[address] [place] [address] 29270#### 73740-6 ####[facility] ([id number])[address], [address], [place] [address] ESR Photometric method (Bld) [Velocity]on 10-20-2023 ESR, ERYTHROCYTE SEDIMENTATION RATE 21 mm/h High 0-20 [facility] Comment on above: Performed By: #### C ISELA WOODALL, 0, 1 ####[facility] ([id number])[address] [place] [address] 12670#### 20367-5 ####[facility] ([id number])[address] [address] LDH [Catalytic activity/Vol] on 10-20-2023 LDH 178 U/L Normal 100-235 [facility] Comment on above: Performed By: #### C ISELA WOODALL, 0, 3081 ####[facility] ([id number])[address] [place] [address] 40796#### 54561-2 ####[facility] ([id number])[address] [place] [address] URIC ACIDon 10-20-2023 Urate [Mass/Vol] 4.3 mg/dL Normal 2.6-7.2 [facility] Comment on above: Performed By: #### C ISELA WOODALL, , 3083-03 ####[facility] ([id number])[address] [place] [address] 69467#### 47463-7 ####[facility] ([id number])[address] [place] [address] Ambulatory Visit Summaryon 0 10-19-2023 Ambulatory Visit Summary Ambulatory Visit Summary TORSTEN HAYWOOD :1955 Visit Date:10/19/2023 Ambulatory Visit Instructions Your Diagnosis Congestive heart failure Hyponatremia Hx of CABG HTN (hypertension) CAD (coronary artery disease) BMI 26.0-26.9,adult Overweight Nonsmoker Uses walker Hodgkin lymphoma Your Care Team Attending Physician - Chester Hobbs MD Primary Care Physician - Chester Hobbs MD This Is Your Medications List Misc Prescription (Keron Guevara, 5 years.) metoprolol (metoprolol succinate 25 mg ER Tab) mirtazapine (Remeron 15 mg Tab) Contact prescribing physician if questions or concerns Magic Mouthwash acetaminophen (acetaminophen 500 mg Tab) amiodarone (amiodarone 200 mg Tab) apixaban (Eliquis 5 mg oral tablet) atorvastatin (atorvastatin 20 mg Tab) bumetanide (bumetanide 1 mg Tab) calcium-vitamin D (Calcium 600+D) digoxin (digoxin 250 mcg (0.25 mg) Tab) ondansetron (Zofran 4 mg Tab) potassium chloride (potassium chloride 20 mEq ER Tab) prochlorperazine (Compazine 10 mg oral tablet) Procedures Performed Colonoscopy (11/16/2019), CABG x 5 - Coronary artery bypass grafts x 5, Cholecystectomy, Splenectomy. Discharge Vitals Temperature (Oral) 36.7 ?C Heart Rate (Peripheral) 110 Respiratory Rate 16 Blood Pressure 92/62 Height 185.2 cm Height 73 in Weight 89.4 kg Weight 196.68 lb BMI 26.06 Medications What How Much When Why Instructions [facility] Prescription (Keron Guevara, 5 years.) See instructions Congestive heart failure Hyponatremia Hx of CABG HTN (hypertension) CAD (coronary artery disease) BMI 26.0-26.9,adult Overweight Nonsmoker Uses walker Keron Guevara, 5 years. Printed Prescription Changed metoprolol (metoprolol succinate 25 mg ER Tab) 0.5 Tablets By Mouth Every day Pickup at [facility] Changed mirtazapine (Remeron 15 mg Tab) 1 Tablets By Mouth Once a day (at bedtime) Pickup at [facility] Unchanged acetaminophen (acetaminophen 500 mg Tab) 2 Tablets By Mouth Every 6 hours as needed Contact prescribing physician if questions or concerns Unchanged amiodarone (amiodarone 200 mg Tab) 1 Tablets By Mouth Every day Contact prescribing physician if questions or concerns Unchanged apixaban (Eliquis 5 mg oral tablet) 1 Tablets By Mouth 2 times a day Contact prescribing physician if questions or concerns Unchanged atorvastatin (atorvastatin 20 mg Tab) 1 Tablets By Mouth Every day Contact prescribing physician if questions or concerns Unchanged bumetanide (bumetanide 1 mg Tab) 1 Tablets By Mouth 2 times a day Contact prescribing physician if questions or concerns Unchanged calcium-vitamin D (Calcium 600+D) See instructions Take one daily Contact prescribing physician if questions or concerns Unchanged digoxin (digoxin 250 mcg (0.25 mg) Tab) 1 Tablets By Mouth Every day Contact prescribing physician if questions or concerns Unchanged Magic Mouthwash See instructions Use as needed Contact prescribing physician if questions or concerns Unchanged ondansetron (Zofran 4 mg Tab) 1 Tablets By Mouth Every 8 hours as needed for nausea/ vomiting from chemo Contact prescribing physician if questions or concerns Unchanged potassium chloride (potassium chloride 20 mEq ER Tab) 1 Tablets By Mouth Every day Contact prescribing physician if questions or concerns Unchanged prochlorperazine (Compazine 10 mg oral tablet) 25 Milligram By Mouth 3 times a day as needed for milder nausea Contact prescribing physician if questions or concerns Pharmacy [facility]: [address] [place], [place] [phone] Allergies No Known Allergies No Known Medication Allergies Problems Ongoing - Any problem that you are currently receiving treatment for. Adult BMI 38.0-38.9 kg/sq m CAD (coronary artery disease) Chronic anticoagulation Congestive heart failure Factor V Leiden History of asplenia Hodgkin lymphoma HTN (hypertension) Hx of CABG Hyponatremia Leukocytosis Screening PSA (prostate specific antigen) Thrombocytopenia Total bilirubin, elevated Tubular adenoma of colon Uses walker Patient Survey You may receive a survey via text or e-mail asking about your office visit. Please share your experience with us by completing your survey. We appreciate your feedback and thank you for choosing us for your care. Education Materials BMI for Adults What is BMI? Body mass index (BMI) is a number that is calculated from a person's weight and height. BMI can help estimate how much of a person's weight is composed of fat. BMI does not measure body fat directly. Rather, it is an alternative to procedures that directly measure body fat, which can be difficult and expensive. BMI can help identify people who may be at higher risk for certain medical problems. What are BMI measurements used for? BMI is used as a screening tool to identify p (more content not included)... Normal [facility] Family Medicine Office/Clini c Noteon 10-19-2023 Family Medicine Office/Clinic Note Family Medicine Office/Clinic Note HPI Staff Torsten is a 67 year old male presenting for a face to face for home health services. [facility], went on hold when in the hospital so needs the visit Spent 12 days in [facility] with norovirus after his first chemo treatment Needs refills of his remeron and metoprolol and a rx for handicapp placard History of Present Illness Here for follow up. - Was recently in the hospital with Afib with RVR - Recently found to have lymphoma - Hodgkin - Seeing Oncology - Review of Systems PHQ Score Initial Depression Screen Score: 1 SCORE Physical Exam Vitals & Measurements T: 36.7 ?C(Oral) HR: 110(Peripheral) RR: 16 BP: 92/62 SpO2: 96% HT: 73 in HT: 185.2 cm WT: 89.4 kg WT: 196.68 lb BMI: 26.06 General: alert, no acute distress ENMT: oral mucosa moist, Cardiovascular: regular rate and rhythm, normal peripheral perfusion Respiratory: Lungs CTA, respirations non labored, Very Diminished Extremities: no deformity, no trauma Neurological: oriented x 4, LOC appropriate for age, CN II-XII intact, motor strength equal & normal bilaterally, speech normal Abdomen: Soft, Nontender, Non-distended, + BS Ambulating with a walker. Assessment/Plan 1. Congestive heart failure (I50.9: Heart failure, unspecified) - Stable at this time. Ordered: Misc Prescription, Handicap Placard, 5 years., See Instructions, 1 EA, 0, Handicap Placard, 5 years., Supply Body Mass Index (BMI) documented 3008F Chronic Care Management ? Ambulatory Referral Current tobacco non-user 1036F Depression Screening Negative 3352F Influenza immunization administered or previously received 4274F Most recent diastolic blood pressure <80 mm Hg 3078F Patient screen for fall risk: no falls in last year or 1 fall with no injury in last year 1101F Systolic BP <130 mm Hg (Most Recent) 3074F 2. Hyponatremia (E87.1: Hypo-osmolality and hyponatremia) - Will have labs done tomorrow. Ordered: Misc Prescription, Handicap Placard, 5 years., See Instructions, 1 EA, 0, Handicap Placard, 5 years., Supply Body Mass Index (BMI) documented 3008F Chronic Care Management ? Ambulatory Referral Current tobacco non-user 1036F Depression Screening Negative 3352F Influenza immunization administered or previously received 4274F Most recent diastolic blood pressure <80 mm Hg 3078F Patient screen for fall risk: no falls in last year or 1 fall with no injury in last year 1101F Systolic BP <130 mm Hg (Most Recent) 3074F 3. Hx of CABG (Z95.1: Presence of aortocoronary bypass graft) - Sees Cardiology - No CP Ordered: Misc Prescription, Handicap Placard, 5 years., See Instructions, 1 EA, 0, Handicap Placard, 5 years., Supply Body Mass Index (BMI) documented 3008F Chronic Care Management ? Ambulatory Referral Current tobacco non-user 1036F Depression Screening Negative 3352F Influenza immunization administered or previously received 4274F Most recent diastolic blood pressure <80 mm Hg 3078F Patient screen for fall risk: no falls in last year or 1 fall with no injury in last year 1101F Systolic BP <130 mm Hg (Most Recent) 3074F 4. HTN (hypertension) (I10: Essential (primary) hypertension) - Well controlled - See Cardiology Ordered: Misc Prescription, Handicap Placard, 5 years., See Instructions, 1 EA, 0, Handicap Placard, 5 years., Supply Body Mass Index (BMI) documented 3008F Chronic Care Management ? Ambulatory Referral Current tobacco non-user 1036F Depression Screening Negative 3352F Influenza immunization administered or previously received 4274F Most recent diastolic blood pressure <80 mm Hg 3078F Patient screen for fall risk: no falls in last year or 1 fall with no injury in last year 1101F Systolic BP <130 mm Hg (Most Recent) 3074F 5. CAD (coronary artery disease) (I25.10: Atherosclerotic heart disease of [place] coronary artery without angina pectoris) - NO CP. - On blood thinners. Ordered: Misc Prescription, Handicap Placard, 5 years., See Instructions, 1 EA, 0, Handicap Placard, 5 years., Supply Body Mass Index (BMI) documented 3008F Chronic Care Management ? Ambulatory Referral Current tobacco non-user 1036F Depression Screening Negative 3352F Influenza immunization administered or previously received 4274F Most recent diastolic blood pressure <80 mm Hg 3078F Patient screen for fall risk: no falls in last year or 1 fall with no injury in last year 1101F Systolic BP <130 mm Hg (Most Recent) 3074F 6. BMI 26.0-26.9,adult (Z68.26: Body mass index [BMI] 26.0-26.9, adult) - BMI education added Ordered: Misc Prescription, Handicap Placard, 5 years., See Instructions, 1 EA, 0, Handicap Placard, 5 years., Supply Body Mass Index (BMI) documented 3008F Current tobacco non-user 1036F Depression Screening Negative 3352F Influenza immunization administered or previously received 4274F Most recent diastolic blood (more content not included)... Normal [facility] Comment on above: Result Comment: Elec tronically Signed By: Yfn ESCOBEDO, Chester Felix.br\Date and Time Signed: 10/19/23 14:20 EDT CBC AND AUTO DIFFon 10-13-19 Erythrocyte distribution width (RBC) [Ratio] 21.1 % High 11.5-15.0 [facility] Comment on above: Performed By: #### C NICCI, 253-0, 3083-03, CBCA ####[facility] ([id number])[address] [place] [address] 89364#### 01733-8 ####[facility] ([id number])[address] [facility], [address] [place] [address] 88899 FRAGMENT 1+ Abnormal NONE [facility] Comment on above: Performed By: #### C NICCI, 2532-0, 3083-1, CBCA ####[facility] ([id number])[address] [place] [address] 63157#### 50022-7 ####[facility] ([id number])[address] [facility], [address] [place] [address] 70874 Hematocrit (Bld) [Volume fraction] 36.9 % Low 39-49 [facility] Comment on above: Performed By: #### C NICCI, 2532-0, 3083-1, CBCA ####[facility] ([id number])[address] [place] [address] 86491#### 09157-7 ####[facility] ([id number])[address] [facility], [address] [place] [address] 62881 Hemoglobin (Bld) [Mass/Vol] 12.1 g/dL Low 13.0-17.0 [facility] Comment on above: Performed By: #### C NICCI, 2531-0, 3083-03, CBCA ####[facility] ([id number])[address] [place] [address] 90035#### 67674-5 ####[facility] ([id number])[address] [place] [address] 92431 WINN-JOLLY BODY 1+ Abnormal NONE [facility] Comment on above: Performed By: #### Bob GRAJEDA, 0, 3083-03, CBCA ####[facility] ([id number])[address] [place] [address] 50216#### 39591-3 ####[facility] ([id number])[address] [place] [address] 23869 LYMPHOCYTE, ATYPICAL 1.0 % Normal [facility] Comment on above: Performed By: #### Bob GRAJEDA, 0, 3083-03, CBCA ####[facility] ([id number])[address] [place] [address] 87087#### 09299-6 ####[facility] ([id number])[address] [place] [address], [address] [place] [address] 68110 Lymphocytes (Bld) [#/Vol] 5.6 10*3/uL High 1.0-3.5 [facility] Comment on above: Performed By: #### Bob GRAJEDA, 2531-0, 3083-03, CBCA ####[facility] ([id number])[address] [place] [address] 12911#### 64987-1 ####[facility] ([id number])[address] [facility], [address] [place] [address] 36154 Lymphocytes/100 WBC (Bld) 25.0 % Normal [facility] Comment on above: Performed By: #### Bob GRAJEDA, 2531-0, 3083-03, CBCA ####[facility] ([id number])[address] [place] [address] 29764#### 52659-4 ####[facility] ([id number])[address] [facility], [address] [place] [address] 49297 MCH (RBC) [Entitic mass] 32.8 pg Normal 27-34 [facility] Comment on above: Performed By: #### Bob GRAJEDA, , 3083-03, CBCA ####[facility] ([id number])[address] [place] [address] 98376#### 25044-3 ####[facility] ([id number])[address] [facility], [address] [place] [address] 32610 MCHC (RBC) [Mass/Vol] 32.9 g/dL Normal 32-36 [facility] Comment on above: Performed By: #### Bob GRAJEDA, 0, 3083-03, CBCA ####[facility] ([id number])[address] [place] [address] 08448#### 38003-8 ####[facility] ([id number])[address] [facility], [facility] [place] [address] MCV (RBC) [Entitic vol] 100 fL Normal 80-100 [facility] Comment on above: Performed By: #### Bob GRAJEDA, 0, 3083-03, CBCA ####[facility] ([id number])[address] [place] [address] 95528#### 75214-1 ####[facility] ([id number])[address], [place] [address] Monocytes (Bld) [#/Vol] 2.4 10*3/uL High 0-0.9 [facility] Comment on above: Performed By: #### C NICCI, 0, 3083-03, CBCA ####[facility] ([id number])[address] [place] [address] 54609#### 14483-3 ####[facility] ([id number])0 [facility], [address] [place] [address] 60811 Monocytes/100 WBC (Bld) 11.0 % Normal [facility] Comment on above: Performed By: #### Bob GRAJEDA, 0, 3083-03, CBCA ####[facility] ([id number])[address] [place] [address] 88619#### 48316-9 ####[facility] ([id number])[address] [facility], [address] [place] [address] 10294 MYELOCYTE 1.0 % Normal [facility] Comment on above: Performed By: #### Bob GRAJEDA, 0, 3083-03, CBCA ####[facility] ([id number])[address] [place] [address] 79262#### 55210-7 ####[facility] ([id number])[address] [facility], [address], [place] [address] Neutrophils (Bld) [#/Vol] 13.4 10*3/uL High 1.5-6.6 [facility] Comment on above: Performed By: #### Bob GRAJEDA, 0, 3083-03, CBCA ####[facility] ([id number])[address] [place] [address] 48951#### 79826-2 ####[facility] ([id number])[address] [facility], [address] [place] [address] 66477 NUCLEATED RBC 4.0 /100 WBC High 0.0-1.0 [facility] Comment on above: Performed By: #### Bob GRAJEDA, 0, 3083-03, CBCA ####[facility] ([id number])[address] [place] [address] 66154#### 86240-5 ####[facility] ([id number])[address] [facility], [address] [place] [address] 27019 Platelet mean volume (Bld) [Entitic vol] 9.2 fL Normal 7-12 [facility] Comment on above: Performed By: #### Bob GRAJEDA, , 3083-03, CBCA ####[facility] ([id number])[address] [place] [address] 69750#### 41651-7 ####[facility] ([id number])[address] [facility], [address] [place] [address] 88644 Platelets (Bld) [#/Vol] 397 10*3/uL Normal 150-450 [facility] Comment on above: Performed By: #### Bob GRAJEDA, , 3083-03, CBCA ####[facility] ([id number])[address] [place] [address] 87573#### 31640-0 ####[facility] ([id number])[address] [facility], [address] [place] [address] 78984 RBC COUNT 3.71 X10E12/L Low 4.10-5.70 [facility] Comment on above: Performed By: #### Bob GRAJEDA, 0, 3083-03, CBCA ####[facility] ([id number])[address] [place] [address] 70431#### 77819-4 ####[facility] ([id number])2[address] [facility], [address] [place] [address] 30133 SEG NEUTROPHIL 62.0 % Normal [facility] Comment on above: Performed By: #### C NICCI, 0, 3083-03, CBCA ####[facility] ([id number])[address] [place] [address] 48441#### 06128-3 ####[facility] ([id number])[address] [place] [address], [address] [place] [address] 82990 TEARDROP 1+ Abnormal NONE [facility] Comment on above: Performed By: #### Bob GRAJEDA, , 3083-03, CBCA ####[facility] ([id number])[address] [place] [address] 92581#### 31098-3 ####[facility] ([id number])[address] [place] [address], [address] [place] [address]70[address] WBC (Bld) [#/Vol] 21.6 10*3/uL High 4.0-11.0 [facility] Comment on above: Performed By: #### Bob GRAJEDA, 0, 3083-03, CBCA ####[facility] ([id number])[address] [place] [address] 51016#### [id number] ####[facility] ([id number])[address] [facility], [address] [place] [address]160 COMPREHENSIVE METABOLIC PANE Jalen 10-13-2023 Albumin [Mass/Vol] 2.7 g/dL Low 3.2-5.3 [facility] Comment on above: Performed By: #### Bob GRAJEDA, 0, 3083-03, CBCA ####[facility] ([id number])[address] [place] [address] 77655#### [id number] ####[facility] ([id number])[address], [address] [place] [address] ALP [Catalytic activity/Vol] 98 U/L Normal 39-130 [facility] Comment on above: Performed By: #### C NICCI, 2531-0, 3083-03, CBCA ####[facility] ([id number])[address] [place] [address] 98209#### 90323-9 ####[facility] ([id number])[address], [address], [place] [address] ALT [Catalytic activity/Vol] 16 U/L Normal 0-40 [facility] Comment on above: Performed By: #### C NICCI, 0, 3083-03, CBCA ####[facility] ([id number])[address] [place] [address] 56091#### 90171-0 ####[facility] ([id number])[address], [address], [place] [address] Anion gap [Moles/Vol] 8 mmol/L Normal 5-15 [facility] Comment on above: Performed By: #### C NICCI, 2531-0, 3083-03, CBCA ####[facility] ([id number])[address] [place] [address] 97508#### 35942-1 ####[facility] ([id number])[address], [address], [place] [address] AST [Catalytic activity/Vol] 26 U/L Normal 0-41 [facility] Comment on above: Performed By: #### C NICCI, 0, 3083-03, CBCA ####[facility] ([id number])[address] [place] [address] 70760#### 89260-9 ####[facility] ([id number])[address], [address], [place] [address] Bilirubin [Mass/Vol] 0.4 mg/dL Normal 0.3-1.2 [facility] Comment on above: Performed By: #### C MP, 2-0, 3083-03, CBCA ####[facility] ([id number])[address] [place] [address] 33622#### 56707-4 ####[facility] ([id number])[address], [address], [place] [address] Calcium [Mass/Vol] 8.1 mg/dL Low 8.5-10.5 [facility] Comment on above: Performed By: #### C , 0, 3083-03, CBCA ####[facility] ([id number])[address] [place] [address] 57335#### 02030-9 ####[facility] ([id number])[address], [address], [place] [address] Chloride [Moles/Vol] 98 mmol/L Normal 98-109 [facility] Comment on above: Performed By: #### C NICCI, 2531-0, 3083-03, CBCA ####[facility] ([id number])[address] [place] [address] 54559#### 03373-7 ####[facility] ([id number])[address], [address], [place] [address] CO2 [Moles/Vol] 28 mmol/L Normal 22-32 [facility] Comment on above: Performed By: #### C NICCI, 2532-0, 3083-03, CBCA ####[facility] ([id number])[address] [place] [address] 76255#### 90673-5 ####[facility] ([id number])[address], [address], [place] [address] Creatinine [Mass/Vol] 0.62 mg/dL Low 0.70-1.20 [facility] Comment on above: Result Comment: METH OD TRACEABLE TO IDMS STANDARD Performed By: #### C NICCI, , 3083-03, CBCA ####[facility] ([id number])[address] [place] [address] 30552#### 68245-4 ####[facility] ([id number])[address], [address] [place] [address] 88481 eGFR (CKD-EPI) NON-RACE DEPENDENT >90 Normal >59 [facility] Comment on above: Result Comment: Repo rted eGFR is based on theCKD-EPI 2020 equation that doesnot use a race coefficient. Performed By: #### C NICCI, , 3083-03, CBCA ####[facility] ([id number])[address] [place] [address] 99051#### 30186-3 ####[facility] ([id number])[address], [address] [place] [address] 61444 Glucose [Mass/Vol] 83 mg/dL Normal 65-99 [facility] Comment on above: Performed By: #### C NICCI, , 3083-03, CBCA ####[facility] ([id number])[address] [place] [address] 00355#### 05576-9 ####[facility] ([id number])[address], [address], [place] [address] Potassium [Moles/Vol] 4.3 mmol/L Normal 3.5-5.0 [facility] Comment on above: Performed By: #### Bob GRAJEDA, , 3083-03, CBCA ####[facility] ([id number])[address] [place] [address] 03628#### 23542-8 ####[facility] ([id number])[address] [facility], [address], [place] [address] Protein [Mass/Vol] 5.8 g/dL Low 6.0-8.0 [facility] Comment on above: Performed By: #### Bob GRAJEDA, , 3083-03, CBCA ####[facility] ([id number])[address] [place] [address] 31654#### 28225-4 ####[facility] ([id number])0 [facility], [address] [place] [address] 91738 Sodium [Moles/Vol] 134 mmol/L Normal 134-146 [facility] Comment on above: Performed By: #### Bob GRAJEDA, , 3083-03, CBCA ####[facility] ([id number])[address] [place] [address] 53555#### 82691-5 ####[facility] ([id number])[address] [facility], [address], [place] [address] Urea nitrogen [Mass/Vol] 8 mg/dL Normal 5-27 [facility] Comment on above: Performed By: #### Bob GRAJEDA, , 3083-03, CBCA ####[facility] ([id number])[address] [place] [address] 60387#### 93812-7 ####[facility] ([id number])[address], [address], [place] [address] ESR Photometric method (Bld) [Velocity]on 10-13-2023 ESR, ERYTHROCYTE SEDIMENTATION RATE 17 mm/h Normal 0-20 [facility] Comment on above: Performed By: #### C MP, 2532-0, 3084-1, CBCA ####[facility] ([id number])[address] [place] [address] 92249#### 98240-0 ####[facility] ([id number])[address], [address] [place] [address] 6[address] LDH [Catalytic activity/Vol] on 10-13-2023 LDH 249 U/L High 100-235 [facility] Comment on above: Performed By: #### C MP, 2532-0, 3084-1, CBCA ####[facility] ([id number])[address] [place], [place] [address]#### 27427-7 ####[facility] ([id number])[address], [address] [place] [address] 87780 URIC ACIDon 10-13-2023 Urate [Mass/Vol] 3.0 mg/dL Normal 2.6-7.2 [facility] Comment on above: Performed By: #### C MP, 2532-0, 3084-1, CBCA ####[facility] ([id number])[address] [place], [place] [address]#### 19938-1 ####[facility] ([id number])[address], [address] [address] CBC AND AUTO DIFFon 10-12-19 Erythrocyte distribution width (RBC) [Ratio] 21.0 % High 11.5-15.0 [facility] Comment on above: Performed By: #### C BCA, CMP, 48986-4 ####[facility] ([id number])[address] [place] [address] 84572 FRAGMENT 1+ Abnormal NONE [facility] Comment on above: Performed By: #### Bob WOODALL CMP, ####[facility] ([id number])[address] [place] [address] 00824 Hematocrit (Bld) [Volume fraction] 31.3 % Low 39-49 [facility] Comment on above: Performed By: #### oBb WOODALL CMP, ####[facility] ([id number])[address] [place] [address] 18083 Hemoglobin (Bld) [Mass/Vol] 10.7 g/dL Low 13.0-17.0 [facility] Comment on above: Performed By: #### Bob WOODALL CMP, ####[facility] ([id number])[address] [place] [address] 02198 WINN-JOLLY BODY 1+ Abnormal NONE [facility] Comment on above: Performed By: #### Bob WOODALL [facility], ####[facility] ([id number])[address] [place] [address] 35253 Lymphocytes (Bld) [#/Vol] 4.1 10*3/uL High 1.0-3.5 [facility] Comment on above: Performed By: #### Bob WOODALL CMP, ####[facility] ([id number])[address] [place] [address] 09344 Lymphocytes/100 WBC (Bld) 22.0 % Normal [facility] Comment on above: Performed By: #### Bob WOODALL CMP, ####[facility] ([id number])[address] [place] [address] 82062 MCH (RBC) [Entitic mass] 33.6 pg Normal 27-34 [facility] Comment on above: Performed By: #### Bob WOODALL CMP, ####[facility] ([id number])[address] [place] [address] 65725 MCHC (RBC) [Mass/Vol] 34.2 g/dL Normal 32-36 [facility] Comment on above: Performed By: #### Bob WOODLAL, CMP, ####[facility] ([id number])[address] [place] [address] 83658 MCV (RBC) [Entitic vol] 98 fL Normal 80-100 [facility] Comment on above: Performed By: #### oBb WOODALL CMP, ####[facility] ([id number])[address] [place] [address] 29868 Monocytes (Bld) [#/Vol] 2.6 10*3/uL High 0-0.9 [facility] Comment on above: Performed By: #### Bob WOODALL, CMP, ####[facility] ([id number])[address] [place] [address] 19112 Monocytes/100 WBC (Bld) 14.0 % Normal [facility] Comment on above: Performed By: #### Bob WOODALL, CMP, ####[facility] ([id number])[address] [place] [address] 16118 MYELOCYTE 1.0 % Normal [facility] Comment on above: Performed By: #### Bob WOODALL, CMP, ####[facility] ([id number])[address] [place] [address] 67068 Neutrophils (Bld) [#/Vol] 11.8 10*3/uL High 1.5-6.6 [facility] Comment on above: Performed By: #### Bob WOODALL, CMP, ####[facility] ([id number])[address] [place] [address] 74427 NUCLEATED RBC 2.0 /100 WBC High 0.0-1.0 [facility] Comment on above: Performed By: #### Bob WOODALL CMP, ####[facility] ([id number])[address] [place] [address] 80736 Platelet mean volume (Bld) [Entitic vol] 9.6 fL Normal 7-12 [facility] Comment on above: Performed By: #### Bob WOODALL CMP, ####[facility] ([id number])[address] [place] [address] 97476 Platelets (Bld) [#/Vol] 342 10*3/uL Normal 150-450 [facility] Comment on above: Performed By: #### Bob WOODALL CMP, ####[facility] ([id number])[address] [place] [address] 19051 RBC COUNT 3.19 X10E12/L Low 4.10-5.70 [facility] Comment on above: Performed By: #### Bob WOODALL CMP, ####[facility] ([id number])[address] [place] [address] 98837 SEG NEUTROPHIL 63.0 % Normal [facility] Comment on above: Performed By: #### Bob WOODALL CMP, ####[facility] ([id number])[address] [place] [address] 91621 TOXIC GRANULATION 1+ Abnormal NONE [facility] Comment on above: Performed By: #### Bob WOODALL CMP, ####[facility] ([id number])[address] [place] [address] 81610 WBC (Bld) [#/Vol] 18.7 10*3/uL High 4.0-11.0 [facility] Comment on above: Performed By: #### C BCA, CMP, ####[facility] ([id number])[address] [place] [address] [place] [address] COMPREHENSIVE METABOLIC PANE Jalen 10-12-2023 Albumin [Mass/Vol] 2.5 g/dL Low 3.2-5.3 [facility] Comment on above: Performed By: #### C BCA, CMP, ####[facility] ([id number])[address] [place] [address] [place] [address] ALP [Catalytic activity/Vol] 78 U/L Normal 39-130 [facility] Comment on above: Performed By: #### C BCA, CMP, ####[facility] ([id number])[address] [place] [address] 94643 ALT [Catalytic activity/Vol] 19 U/L Normal 0-40 [facility] Comment on above: Performed By: #### C BCA, CMP, ####[facility] ([id number])[address] [place] [address] 61009 Anion gap [Moles/Vol] 6 mmol/L Normal 5-15 [facility] Comment on above: Performed By: #### C BCA, CMP, 37949-6 ####[facility] ([id number])[address] [place] [address] 90496 AST [Catalytic activity/Vol] 23 U/L Normal 0-41 [facility] Comment on above: Performed By: #### C BCA, CMP, ####[facility] ([id number])[address] [place] [address] 00235 Bilirubin [Mass/Vol] 0.5 mg/dL Normal 0.3-1.2 [facility] Comment on above: Performed By: #### C BCA, CMP, ####[facility] ([id number])[address] [place] [address] [place] [address] Calcium [Mass/Vol] 7.6 mg/dL Low 8.5-10.5 [facility] Comment on above: Performed By: #### C MAGALI WOODALL, 24816-3 ####[facility] ([id number])[address] [place] [address] 23440 Chloride [Moles/Vol] 100 mmol/L Normal 98-109 [facility] Comment on above: Performed By: #### C MAGALI WOODALL, ####[facility] ([id number])[address] [place] [address] 96481 CO2 [Moles/Vol] 27 mmol/L Normal 22-32 [facility] Comment on above: Performed By: #### Bob WOODALL CMP, ####[facility] ([id number])[address] [place] [address] [place] [address] Creatinine [Mass/Vol] 0.48 mg/dL Low 0.70-1.20 [facility] Comment on above: Result Comment: METH OD TRACEABLE TO IDMS STANDARD Performed By: #### C MAGALI WOODALL, ####[facility] ([id number])[address] [place] [address] 00582 eGFR (CKD-EPI) NON-RACE DEPENDENT >90 Normal >59 [facility] Comment on above: Result Comment: Repo rted eGFR is based on theCKD-EPI 2020 equation that doesnot use a race coefficient. Performed By: #### C MAGALI WOODALL, ####[facility] ([id number])[address] [place] [address] [place] [address] Glucose [Mass/Vol] 85 mg/dL Normal 65-99 [facility] Comment on above: Performed By: #### C MAGALI WOODALL, ####[facility] ([id number])[address] [place] [address] 24670 Potassium [Moles/Vol] 4.1 mmol/L Normal 3.5-5.0 [facility] Comment on above: Performed By: #### C BCA, CMP, ####[facility] ([id number])[address] [place] [address] 94525 Protein [Mass/Vol] 5.0 g/dL Low 6.0-8.0 [facility] Comment on above: Performed By: #### C BCA, CMP, ####[facility] ([id number])[address] [place] [address] 89694 Sodium [Moles/Vol] 133 mmol/L Low 134-146 [facility] Comment on above: Performed By: #### C BCA, CMP, ####[facility] ([id number])[address] [place] [address] 00851 Urea nitrogen [Mass/Vol] 6 mg/dL Normal 5-27 [facility] Comment on above: Performed By: #### C BCA, CMP, ####[facility] ([id number])[address] [place] [address] 41004 MAGNESIUMon 10-12-2023 Magnesium [Mass/Vol] 2.0 mg/dL Normal 1.8-2.6 [facility] Comment on above: Performed By: #### C BCA, CMP, ####[facility] ([id number])[address] [place] [address] 78350 CBC AND AUTO DIFFon 10-11-19 24 ABSOLUTE BASOPHIL 0.2 X10E9/L Normal 0.0-0.2 [facility] Comment on above: Performed By: #### C MP, CBCA, , THYR ####[facility] ([id number])[address] [place] [address] 20184 Band form neutrophils/100 WBC (Bld) 2.0 % Normal [facility] Comment on above: Performed By: #### C NICCI, CBCA, , THYR ####[facility] ([id number])[address] [place] [address] 47836 Basophils/100 WBC (Bld) 1.0 % Normal [facility] Comment on above: Performed By: #### C NICCI, CBCA, , THYR ####[facility] ([id number])[address] [place] [address] 91516 Erythrocyte distribution width (RBC) [Ratio] 21.3 % High 11.5-15.0 [facility] Comment on above: Performed By: #### C NICCI, CBCA, , THYR ####[facility] ([id number])[address] [place] [address] 78756 Hematocrit (Bld) [Volume fraction] 30.3 % Low 39-49 [facility] Comment on above: Performed By: #### C NICCI, CBCA, , THYR ####[facility] ([id number])[address] [place] [address] 81731 Hemoglobin (Bld) [Mass/Vol] 10.3 g/dL Low 13.0-17.0 [facility] Comment on above: Performed By: #### C NICCI, CBCA, , THYR ####[facility] ([id number])[address] [place] [address] 91254 WINN-JOLLY BODY 1+ Abnormal NONE [facility] Comment on above: Performed By: #### C NICCI, CBCA, , THYR ####[facility] ([id number])[address] [place] [address] 05292 LYMPHOCYTE, ATYPICAL 11.0 % Normal [facility] Comment on above: Performed By: #### C NICCI, CBCA, , THYR ####[facility] ([id number])[address] [place] [address] 15180 Lymphocytes (Bld) [#/Vol] 5.9 10*3/uL High 1.0-3.5 [facility] Comment on above: Performed By: #### C NICCI, CBCA, , THYR ####[facility] ([id number])[address] [place] [address] 81325 Lymphocytes/100 WBC (Bld) 19.0 % Normal [facility] Comment on above: Performed By: #### C NICCI, CBCA, , THYR ####[facility] ([id number])[address] [place] [address] 25001 MCH (RBC) [Entitic mass] 33.7 pg Normal 27-34 [facility] Comment on above: Performed By: #### C NICCI CBCA, , THYR ####[facility] ([id number])[address] [place] [address] 05338 MCHC (RBC) [Mass/Vol] 34.0 g/dL Normal 32-36 [facility] Comment on above: Performed By: #### C NICCI CBCA, , THYR ####[facility] ([id number])[address] [place] [address] 14310 MCV (RBC) [Entitic vol] 99 fL Normal 80-100 [facility] Comment on above: Performed By: #### C NICCI, CBCA, , THYR ####[facility] ([id number])[address] [place] [address] 51450 Monocytes (Bld) [#/Vol] 2.8 10*3/uL High 0-0.9 [facility] Comment on above: Performed By: #### C NICCI, CBCA, , THYR ####[facility] ([id number])[address] [place] [address] 64034 Monocytes/100 WBC (Bld) 14.0 % Normal [facility] Comment on above: Performed By: #### C NICCI, CBCA, , THYR ####[facility] ([id number])[address] [place] [address] 39298 MYELOCYTE 1.0 % Normal [facility] Comment on above: Performed By: #### C NICCI, CBCA, , THYR ####[facility] ([id number])[address] [place] [address] 88528 Neutrophils (Bld) [#/Vol] 10.6 10*3/uL High 1.5-6.6 [facility] Comment on above: Performed By: #### C NICCI, CBCA, , THYR ####[facility] ([id number])[address] [place] [address] 61251 NUCLEATED RBC 1.0 /100 WBC Normal 0.0-1.0 [facility] Comment on above: Performed By: #### C NICCI, CBCA, , THYR ####[facility] ([id number])[address] [place] [address] 88906 Platelet mean volume (Bld) [Entitic vol] 9.6 fL Normal 7-12 [facility] Comment on above: Performed By: #### C NICCI, CBCA, , THYR ####[facility] ([id number])[address] [place] [address] 86074 Platelets (Bld) [#/Vol] 247 10*3/uL Normal 150-450 [facility] Comment on above: Performed By: #### C MP, CBCA, , THYR ####[facility] ([id number])[address] [place] [address] 37783 POLYCHROMASIA 1+ Abnormal NONE [facility] Comment on above: Performed By: #### C MP, CBCA, , THYR ####[facility] ([id number])[address] [place] [address] 99931 RBC COUNT 3.06 X10E12/L Low 4.10-5.70 [facility] Comment on above: Performed By: #### C MP, CBCA, , THYR ####[facility] ([id number])[address] [place] [address] 25924 SEG NEUTROPHIL 52.0 % Normal [facility] Comment on above: Performed By: #### C MP, CBCA, , THYR ####[facility] ([id number])[address] [place] [address] 37541 TOXIC GRANULATION 1+ Abnormal NONE [facility] Comment on above: Performed By: #### C MP, CBCA, , THYR ####[facility] ([id number])[address] [place] [address] 36050 WBC (Bld) [#/Vol] 19.7 10*3/uL High 4.0-11.0 [facility] Comment on above: Performed By: #### C MP, CBCA, , THYR ####[facility] ([id number])[address] [place] [address] [id number] COMPREHENSIVE METABOLIC PANE Jalen 10-11-2023 Albumin [Mass/Vol] 2.6 g/dL Low 3.2-5.3 [facility] Comment on above: Performed By: #### C MP, CBCA, , THYR ####[facility] ([id number])[address] [place] [address] [id number] ALP [Catalytic activity/Vol] 68 U/L Normal 39-130 [facility] Comment on above: Performed By: #### C NICCI CBCA, , THYR ####[facility] ([id number])[address] [place] [address] 24043 ALT [Catalytic activity/Vol] 14 U/L Normal 0-40 [facility] Comment on above: Performed By: #### C NICCI CBCA, , THYR ####[facility] ([id number])[address] [place] [address] [id number] Anion gap [Moles/Vol] 5 mmol/L Normal 5-15 [facility] Comment on above: Performed By: #### C NICCI CBCA, , THYR ####[facility] ([id number])[address] [place] [address] [phone] AST [Catalytic activity/Vol] 18 U/L Normal 0-41 [facility] Comment on above: Performed By: #### C NICCI CBCA, , THYR ####[facility] ([id number])[address] [place] [address] [id number] Bilirubin [Mass/Vol] 0.5 mg/dL Normal 0.3-1.2 [facility] Comment on above: Performed By: #### C NICCI CBCA, , THYR ####[facility] ([id number])[address] [place] [address] 99831 Calcium [Mass/Vol] 7.7 mg/dL Low 8.5-10.5 [facility] Comment on above: Performed By: #### C NICCI CBCA, , THYR ####[facility] ([id number])[address] [place] [address] [phone] Chloride [Moles/Vol] 107 mmol/L Normal 98-109 [facility] Comment on above: Performed By: #### C OG GRAJEDA, , THYR ####[facility] ([id number])[address] [place] [address] 85158 CO2 [Moles/Vol] 22 mmol/L Normal 22-32 [facility] Comment on above: Performed By: #### C OG GRAJEDA, , THYR ####[facility] ([id number])[address] [place] [address] 43535 Creatinine [Mass/Vol] 0.54 mg/dL Low 0.70-1.20 [facility] Comment on above: Result Comment: METH OD TRACEABLE TO IDMS STANDARD Performed By: #### C OG GRAJEDA, , THYR ####[facility] ([id number])[address] [place] [address] [phone] eGFR (CKD-EPI) NON-RACE DEPENDENT >90 Normal >59 [facility] Comment on above: Result Comment: Repo rted eGFR is based on theCKD-EPI 2020 equation that doesnot use a race coefficient. Performed By: #### C OG GRAJEDA, , THYR ####[facility] ([id number])[address] [place] [address] [place] [address] Glucose [Mass/Vol] 89 mg/dL Normal 65-99 [facility] Comment on above: Performed By: #### C OG GRAJEDA, , THYR ####[facility] ([id number])[address] [place] [address] 92156 Potassium [Moles/Vol] 4.4 mmol/L Normal 3.5-5.0 [facility] Comment on above: Performed By: #### C OG GRAJEDA, , THYR ####[facility] ([id number])[address] [place] [address] 02230 Protein [Mass/Vol] 4.9 g/dL Low 6.0-8.0 [facility] Comment on above: Performed By: #### C OG GRAJEDA, , THYR ####[facility] ([id number])[address] [place] [address] 59595 Sodium [Moles/Vol] 134 mmol/L Normal 134-146 [facility] Comment on above: Performed By: #### C OG GRAJEDA, , THYR ####[facility] ([id number])[address] [place] [address] 49669 Urea nitrogen [Mass/Vol] 7 mg/dL Normal 5-27 [facility] Comment on above: Performed By: #### C OG GRAJEDA, , THYR ####[facility] ([id number])[address] [place] [address] 87294 MAGNESIUMon 10-11-2023 Magnesium [Mass/Vol] 2.3 mg/dL Normal 1.8-2.6 [facility] Comment on above: Performed By: #### 1 9123-9 ####[facility] ([id number])[address] [place] [address] 51793 Magnesium [Mass/Vol] 1.6 mg/dL Low 1.8-2.6 [facility] Comment on above: Performed By: #### C OG GRAJEDA, , THYR ####[facility] ([id number])[address] [place] [address] 86947 THYROID PROFILEon 10-11-2023 Free T4 [Mass/Vol] 0.83 ng/dL Normal 0.61-1.60 [facility] Comment on above: Performed By: #### C NICCI CBCA, , THYR ####[facility] ([id number])[address] [place] [address] 28890 TSH 2.11 uIU/mL Normal 0.49-4.67 [facility] Comment on above: Performed By: #### C MP, CBCA, , THYR ####[facility] ([id number])[address] [place] [address] 73109 CBC AND AUTO DIFFon 10-10-19 24 Band form neutrophils/100 WBC (Bld) 6.0 % Normal [facility] Comment on above: Performed By: #### C TALISHA [facility], ####[facility] ([id number])[address] [place] [address] 52675 JENY 1+ Abnormal NONE [facility] Comment on above: Performed By: #### Bob WOODALL [facility], ####[facility] ([id number])[address] [place] [address] 73455 Erythrocyte distribution width (RBC) [Ratio] 21.7 % High 11.5-15.0 [facility] Comment on above: Performed By: #### C TALISHA [facility], ####[facility] ([id number])[address] [place] [address] 80042 Hematocrit (Bld) [Volume fraction] 32.3 % Low 39-49 [facility] Comment on above: Performed By: #### Bob WOODALL, CMP, ####[facility] ([id number])[address] [place] [address] 73463 Hemoglobin (Bld) [Mass/Vol] 10.9 g/dL Low 13.0-17.0 [facility] Comment on above: Performed By: #### C TALISHA CMP, ####[facility] ([id number])[address] [place] [address], [place] [address] WINN-JOLLY BODY 1+ Abnormal NONE [facility] [place] [facility] Comment on above: Performed By: #### Bob WOODALL CMP, ####[facility] ([id number])[address] [place] [address] [place] [address] LYMPHOCYTE, ATYPICAL 9.0 % Normal [facility] Comment on above: Performed By: #### Bob WOODALL CMP, ####[facility] ([id number])[address] [place] [address] 48896 Lymphocytes (Bld) [#/Vol] 4.1 10*3/uL High 1.0-3.5 [facility] Comment on above: Performed By: #### Bob WOODALL CMP, ####[facility] ([id number])[address] [place] [address] 27416 Lymphocytes/100 WBC (Bld) 16.0 % Normal [facility] Comment on above: Performed By: #### Bob WOODALL [facility], ####[facility] ([id number])[address] [place] [address] 58249 MCH (RBC) [Entitic mass] 34.0 pg Normal 27-34 [facility] Comment on above: Performed By: #### Bob WOODALL CMP, ####[facility] ([id number])[address] [place] [address] [place] [address] MCHC (RBC) [Mass/Vol] 33.7 g/dL Normal 32-36 [facility] Comment on above: Performed By: #### Bob WOODALL CMP, ####[facility] ([id number])[address] [place] [address] [place] [address] MCV (RBC) [Entitic vol] 101 fL High 80-100 [facility] Comment on above: Performed By: #### C TALISHA, CMP, ####[facility] ([id number])[address] [place] [address] 25767 Monocytes (Bld) [#/Vol] 2.1 10*3/uL High 0-0.9 [facility] Comment on above: Performed By: #### C TALISHA, CMP, ####[facility] ([id number])[address] [place] [address] 31079 Monocytes/100 WBC (Bld) 13.0 % Normal [facility] Comment on above: Performed By: #### C BCA, CMP, ####[facility] ([id number])[address] [place] [address] 51211 MYELOCYTE 2.0 % Normal [facility] Comment on above: Performed By: #### C BCA, CMP, ####[facility] ([id number])[address] [place] [address] 56925 Neutrophils (Bld) [#/Vol] 9.9 10*3/uL High 1.5-6.6 [facility] Comment on above: Performed By: #### C TALISHA, CMP, ####[facility] ([id number])[address] [place] [address] 81092 NUCLEATED RBC 2.0 /100 WBC High 0.0-1.0 [facility] Comment on above: Performed By: #### C BCA, CMP, ####[facility] ([id number])[address] [place] [address] 66092 Platelet mean volume (Bld) [Entitic vol] 9.5 fL Normal 7-12 [facility] Comment on above: Performed By: #### C BCA, CMP, ####[facility] ([id number])[address] [place] [address] 42085 Platelets (Bld) [#/Vol] 304 10*3/uL Normal 150-450 [facility] Comment on above: Performed By: #### C TALSIHA, CMP, 49007-9 ####[facility] ([id number])[address] [place] [address] 09272 RBC COUNT 3.21 X10E12/L Low 4.10-5.70 [facility] Comment on above: Performed By: #### C TALISHA, CMP, ####[facility] ([id number])[address] [place] [address] 15323 SEG NEUTROPHIL 54.0 % Normal [facility] Comment on above: Performed By: #### Bob WOODALL, CMP, ####[facility] ([id number])[address] [place] [address] 50713 TARGET 1+ Abnormal NONE [facility] Comment on above: Performed By: #### Bob WOODALL, CMP, ####[facility] ([id number])[address] [place] [address] 14989 TOXIC GRANULATION 1+ Abnormal NONE [facility] Comment on above: Performed By: #### Bob BCA, CMP, ####[facility] ([id number])[address] [place] [address] 83081 WBC (Bld) [#/Vol] 16.4 10*3/uL High 4.0-11.0 [facility] Comment on above: Performed By: #### Bob BCA, CMP, ####[facility] ([id number])[address] [place] [address] 64059 COMPREHENSIVE METABOLIC PANE Jalen 10-10-2023 Albumin [Mass/Vol] 2.0 g/dL Low 3.2-5.3 [facility] Comment on above: Performed By: #### C BCA, CMP, ####[facility] ([id number])[address] [place] [address] 62827 ALP [Catalytic activity/Vol] 74 U/L Normal 39-130 [facility] Comment on above: Performed By: #### C BCA, CMP, ####[facility] ([id number])[address] [place] [address] 28530 ALT [Catalytic activity/Vol] 15 U/L Normal 0-40 [facility] Comment on above: Performed By: #### C BCA, CMP, ####[facility] ([id number])[address] [place] [address] 37462 Anion gap [Moles/Vol] 3 mmol/L Low 5-15 [facility] Comment on above: Performed By: #### C BCA, CMP, ####[facility] ([id number])[address] [place] [address] 20603 AST [Catalytic activity/Vol] 17 U/L Normal 0-41 [facility] Comment on above: Performed By: #### C BCA, CMP, ####[facility] ([id number])[address] [place] [address] 32404 Bilirubin [Mass/Vol] 0.4 mg/dL Normal 0.3-1.2 [facility] Comment on above: Performed By: #### C BCA, CMP, ####[facility] ([id number])[address] [place] [address] 25600 Calcium [Mass/Vol] 7.5 mg/dL Low 8.5-10.5 [facility] Comment on above: Performed By: #### C BCA, CMP, ####[facility] ([id number])[address] [place] [address] 05749 Chloride [Moles/Vol] 115 mmol/L High 98-109 [facility] Comment on above: Performed By: #### C TALISHA [facility], ####[facility] ([id number])[address] [place] [address] 25752 CO2 [Moles/Vol] 18 mmol/L Low 22-32 [facility] Comment on above: Performed By: #### C TALISHA [facility], ####[facility] ([id number])[address] [place] [address] 54132 Creatinine [Mass/Vol] 0.64 mg/dL Low 0.70-1.20 [facility] Comment on above: Result Comment: METH OD TRACEABLE TO IDMS STANDARD Performed By: #### C TALISHA [facility], ####[facility] ([id number])[address] [place] [address] [place] [address] eGFR (CKD-EPI) NON-RACE DEPENDENT >90 Normal >59 [facility] Comment on above: Result Comment: Repo rted eGFR is based on theCKD-EPI 2020 equation that doesnot use a race coefficient. Performed By: #### C MAGALI WOODALL, ####[facility] ([id number])[address] [place] [address] 94336 Glucose [Mass/Vol] 106 mg/dL High 65-99 [facility] Comment on above: Performed By: #### C TALISHA [facility], 56279-0 ####[facility] ([id number])[address] [place] [address] 13485 Potassium [Moles/Vol] 3.6 mmol/L Normal 3.5-5.0 [facility] Comment on above: Performed By: #### C TALISHA [facility], ####[facility] ([id number])[address] [place] [address] 17436 Protein [Mass/Vol] 4.7 g/dL Low 6.0-8.0 [facility] Comment on above: Performed By: #### C BCA, CMP, 58147-8 ####[facility] ([id number])[address] [place] [address] 88433 Sodium [Moles/Vol] 136 mmol/L Normal 134-146 [facility] Comment on above: Performed By: #### C BCA, CMP, 69318-9 ####[facility] ([id number])[address] [place] [address] 27849 Urea nitrogen [Mass/Vol] 10 mg/dL Normal 5-27 [facility] Comment on above: Performed By: #### C BCA, CMP, 91371-4 ####[facility] ([id number])[address] [place] [address] 33464 Chloride (U) [Moles/Vol]on 0 10-10-2023 URINE CHLORIDE,RANDOM 291 mmol/L Normal [facility] Comment on above: Performed By: #### 2 161-8 ####[facility] ([id number])[address] [place] [address] 44338#### 2078-4, 2828-2, 2955-3, 2695-5 ####[facility] ([id number])[address] [place] [address], [address] [place] [address] 73211 Creatinine (U) [Mass/Vol]on 10-10-2023 URINE CREATININE,RDM 95.48 mg/dL Normal [facility] Comment on above: Performed By: #### 2 161-8 ####[facility] ([id number])[address] [place] [address] 30441#### 2078-4, 2828-2, 2955-3, 2695-5 ####[facility] ([id number])[address] [facility], [address], [place] [address] Glucose Glucometer (BldC) [M ass/Vol]on 10-10-2023 Glucose [Mass/Vol] 102 mg/dL High 65-99 [facility] Glucose [Mass/Vol] 118 mg/dL High 65-99 [facility] MAGNESIUMon 10-10-2023 Magnesium [Mass/Vol] 1.8 mg/dL Normal 1.8-2.6 [facility] Comment on above: Performed By: #### 2 823-3, 89400-0 ####[facility] ([id number])[address] [place] [address] 15138 Magnesium [Mass/Vol] 1.7 mg/dL Low 1.8-2.6 [facility] Comment on above: Performed By: #### C BCA, [facility], 02146-8 ####[facility] ([id number])[address] [place] [address] 02805 Osmolality (U) [Osmolality]o n 10-10-2023 URINE OSMOLALITY 789 mOsm/kg H2 Normal 300-1300 [facility] Comment on above: Performed By: #### 2 161-8 ####[facility] ([id number])[address] [place] [address] 31386#### 2078-4, 2828-2, 2955-3, 2695-5 ####[facility] ([id number])[address] [facility], [address], [place] [address] POTASSIUMon 10-10-2023 Potassium [Moles/Vol] 4.3 mmol/L Normal 3.5-5.0 [facility] Comment on above: Performed By: #### 2 823-3, 19496-7 ####[facility] ([id number])[address] [place] [address] 34060 Potassium (U) [Moles/Vol]on 10-10-2023 URINE POTASSIUM,RANDOM 53.4 mmol/L Normal [facility] Comment on above: Performed By: #### 2 161-8 ####[facility] ([id number])[address] [place] [address] 87733#### 2078-4, 2828-2, 2955-3, 2695-5 ####[facility] ([id number])[address] [facility], [address], [place] [address] URINE SODIUM,RANDOMon 2023 Sodium (U) [Moles/Vol] 121 mmol/L Normal [facility] Comment on above: Performed By: #### 2 161-8 ####[facility] ([id number])[address] [place] [address] 62462#### 2078-4, 2828-2, 2955-3, 2695-5 ####[facility] ([id number])[address] [facility], [address], [place] [address] VENOUS BLOOD GASon KATHERINE'S TEST Normal [facility] Comment on above: Performed By: #### V BG ####[facility] ([id number])[address] [place] [address] 96763 BASE,DEFICIT 8.0 MMOL/L High 0.0-2.0 [facility] Comment on above: Performed By: #### V BG ####[facility] ([id number])[address] [place] [address] 87822 Body temperature 98.6 [degF] Normal 37.0 [facility] Comment on above: Performed By: #### V BG ####[facility] ([id number])[address] [place] [address] 05729 HCO3 (Bld) [Moles/Vol] 16.6 mmol/L Low 20.0-24.0 [facility] Comment on above: Performed By: #### V BG ####[facility] ([id number])[address] [place] [address] 54923 INSP. O2 CONC. 21 % Normal [facility] Comment on above: Performed By: #### V BG ####[facility] ([id number])[address] [place] [address] 45868 Oxygen saturation in Blood 72.0 % Low >80.0 [facility] Comment on above: Performed By: #### V BG ####[facility] ([id number])[address] [place] [address] 30479 OXYGEN SOURCE [facility] Comment on above: Performed By: #### V BG ####[facility] ([id number])[address] [place] [address] 53923 PCO2, VENOUS 30.9 MMHG Low 35-50 [facility] Comment on above: Performed By: #### V BG ####[facility] ([id number])[address] [place] [address] 73800 PH, VENOUS 7.340 Normal 7.320-7.420 [facility] Comment on above: Performed By: #### V BG ####[facility] ([id number])[address] [place] [address] 11205 PO2, VENOUS 39 MMHG Normal 30-50 [facility] Comment on above: Performed By: #### V BG ####[facility] ([id number])[address] [place] [address] 49771 SAMPLE SITE N/A Normal [facility] Comment on above: Performed By: #### V BG ####[facility] ([id number])[address] [place] [address] [place] [address] SAMPLE TYPE VENOUS Normal [facility] Comment on above: Performed By: #### V BG ####[facility] ([id number])[address] [place] [address] 97015 CBC AND AUTO DIFFon 10-09-19 24 Band form neutrophils/100 WBC (Bld) 5.0 % Normal [facility] Comment on above: Performed By: #### C NICCI, , CBCA ####[facility] ([id number])[address] [place] [address] 00407 JENY 1+ Abnormal NONE [facility] Comment on above: Performed By: #### C NICCI, , CBCA ####[facility] ([id number])[address] [place] [address] 50196 Erythrocyte distribution width (RBC) [Ratio] 20.5 % High 11.5-15.0 [facility] Comment on above: Performed By: #### Bob GRAJEDA, , CBCA ####[facility] ([id number])[address] [place] [address] 38349 FRAGMENT 1+ Abnormal NONE [facility] Comment on above: Performed By: #### C NICCI, , CBCA ####[facility] ([id number])[address] [place] [address] 48627 Hematocrit (Bld) [Volume fraction] 37.2 % Low 39-49 [facility] Comment on above: Performed By: #### Bob GRAJEDA, , CBCA ####[facility] ([id number])[address] [place] [address] 46113 Hemoglobin (Bld) [Mass/Vol] 12.2 g/dL Low 13.0-17.0 [facility] Comment on above: Performed By: #### C NICCI, , CBCA ####[facility] ([id number])[address], [place] [address] WINN-JOLLY BODY 1+ Abnormal NONE [facility] [place] [facility] Comment on above: Performed By: #### C NICCI, , CBCA ####[facility] ([id number])[address] [place] [address] 65913 LYMPHOCYTE, ATYPICAL 13.0 % Normal [facility] Comment on above: Performed By: #### C NICCI, , CBCA ####[facility] ([id number])[address] [place] [address] 36519 Lymphocytes (Bld) [#/Vol] 6.4 10*3/uL High 1.0-3.5 [facility] Comment on above: Performed By: #### C NICCI, , CBCA ####[facility] ([id number])[address] [place] [address] 00080 Lymphocytes/100 WBC (Bld) 16.0 % Normal [facility] Comment on above: Performed By: #### C NICCI, , CBCA ####[facility] ([id number])[address] [place] [address] 89446 MCH (RBC) [Entitic mass] 32.7 pg Normal 27-34 [facility] Comment on above: Performed By: #### C NICCI, , CBCA ####[facility] ([id number])[address] [place] [address] 33344 MCHC (RBC) [Mass/Vol] 32.7 g/dL Normal 32-36 [facility] Comment on above: Performed By: #### C NICCI, , CBCA ####[facility] ([id number])[address] [place] [address] 94632 MCV (RBC) [Entitic vol] 100 fL Normal 80-100 [facility] Comment on above: Performed By: #### C NICCI, , CBCA ####[facility] ([id number])[address] [place] [address] 12434 Metamyelocytes/100 WBC (Bld) 1.0 % Normal [facility] Comment on above: Performed By: #### C NICCI, , CBCA ####[facility] ([id number])[address] [place] [address] 24498 Monocytes (Bld) [#/Vol] 2.0 10*3/uL High 0-0.9 [facility] Comment on above: Performed By: #### C NICCI, , CBCA ####[facility] ([id number])[address] [place] [address] 13003 Monocytes/100 WBC (Bld) 9.0 % Normal [facility] Comment on above: Performed By: #### C NICCI, , CBCA ####[facility] ([id number])[address] [place] [address] 99214 MYELOCYTE 1.0 % Normal [facility] Comment on above: Performed By: #### C NICCI, , CBCA ####[facility] ([id number])[address] [place] [address] 18010 Neutrophils (Bld) [#/Vol] 13.3 10*3/uL High 1.5-6.6 [facility] Comment on above: Performed By: #### C NICCI, , CBCA ####[facility] ([id number])[address] [place] [address] 37932 NUCLEATED RBC 3.0 /100 WBC High 0.0-1.0 [facility] Comment on above: Performed By: #### C NICCI, , CBCA ####[facility] ([id number])[address] [place] [address] [place] [address] Platelet mean volume (Bld) [Entitic vol] 9.4 fL Normal 7-12 [facility] Comment on above: Performed By: #### C NICCI, , CBCA ####[facility] ([id number])[address] [place] [address] 12923 Platelets (Bld) [#/Vol] 337 10*3/uL Normal 150-450 [facility] Comment on above: Performed By: #### C NICCI, , CBCA ####[facility] ([id number])[address] [place] [address] 89126 POLYCHROMASIA 1+ Abnormal NONE [facility] Comment on above: Performed By: #### Bob GRAJEDA, , CBCA ####[facility] ([id number])[address] [place] [address] [id number] RBC COUNT 3.73 X10E12/L Low 4.10-5.70 [facility] Comment on above: Performed By: #### Bob GRAJEDA, , CBCA ####[facility] ([id number])[address] [place] [address] 25742 SEG NEUTROPHIL 55.0 % Normal [facility] Comment on above: Performed By: #### Bob GRAJEDA, , CBCA ####[facility] ([id number])[address] [place] [address] [id number] TOXIC GRANULATION 1+ Abnormal NONE [facility] Comment on above: Performed By: #### Bob GRAJEDA, , CBCA ####[facility] ([id number])[address] [place] [address] 17714 WBC (Bld) [#/Vol] 22.1 10*3/uL High 4.0-11.0 [facility] Comment on above: Performed By: #### Bob GRAJEDA, , CBCA ####[facility] ([id number])[address] [place] [address] [place] [address] [address]PRE[address]ENSIVE METABOLIC PANE Jalen 10-09-2023 Albumin [Mass/Vol] 2.4 g/dL Low 3.2-5.3 [facility] Comment on above: Performed By: #### C NICCI, , CBCA ####[facility] ([id number])[address] [place] [address] [place] [address] ALP [Catalytic activity/Vol] 80 U/L Normal 39-130 [facility] Comment on above: Performed By: #### C NICCI, , CBCA ####[facility] ([id number])[address] [place] [address] 08008 ALT [Catalytic activity/Vol] 16 U/L Normal 0-40 [facility] Comment on above: Performed By: #### C NICCI, , CBCA ####[facility] ([id number])[address] [place] [address] [place] [address] Anion gap [Moles/Vol] 7 mmol/L Normal 5-15 [facility] Comment on above: Performed By: #### C NICCI, , CBCA ####[facility] ([id number])[address] [place] [address] [id number] AST [Catalytic activity/Vol] 16 U/L Normal 0-41 [facility] Comment on above: Performed By: #### C NICCI, , CBCA ####[facility] ([id number])[address] [place] [address] 33210 Bilirubin [Mass/Vol] 0.4 mg/dL Normal 0.3-1.2 [facility] Comment on above: Performed By: #### C NICCI, , CBCA ####[facility] ([id number])[address] [place] [address] [place] [address] Calcium [Mass/Vol] 7.8 mg/dL Low 8.5-10.5 [facility] Center Comment on above: Performed By: #### C NICCI, , CBCA ####[facility] ([id number])[address] [place] [address] 22981 Chloride [Moles/Vol] 115 mmol/L High 98-109 [facility] Comment on above: Performed By: #### C NICCI, , CBCA ####[facility] ([id number])[address] [place] [address] 26136 CO2 [Moles/Vol] 17 mmol/L Low 22-32 [facility] Comment on above: Performed By: #### C NICCI, , CBCA ####[facility] ([id number])[address] [place] [address] 97289 Creatinine [Mass/Vol] 0.87 mg/dL Normal 0.70-1.20 [facility] Comment on above: Result Comment: METH OD TRACEABLE TO IDMS STANDARD Performed By: #### C NICCI, , CBCA ####[facility] ([id number])[address] [place] [address] 12419 eGFR (CKD-EPI) NON-RACE DEPENDENT >90 Normal >59 [facility] Comment on above: Result Comment: Repo rted eGFR is based on theCKD-EPI 2020 equation that doesnot use a race coefficient. Performed By: #### C NICCI, , CBCA ####[facility] ([id number])[address] [place] [address] 64275 Glucose [Mass/Vol] 121 mg/dL High 65-99 [facility] Comment on above: Performed By: #### C NICCI, , CBCA ####[facility] ([id number])[address] [place] [address] 75367 Potassium [Moles/Vol] 3.0 mmol/L Low 3.5-5.0 [facility] Comment on above: Performed By: #### C NICCI, , CBCA ####[facility] ([id number])[address] [place] [address] 08324 Protein [Mass/Vol] 5.4 g/dL Low 6.0-8.0 [facility] Comment on above: Performed By: #### C NICCI, , CBCA ####[facility] ([id number])[address] [place] [address] 37644 Sodium [Moles/Vol] 139 mmol/L Normal 134-146 [facility] Comment on above: Performed By: #### Bob GRAJEDA, , CBCA ####[facility] ([id number])[address] [place] [address] 71516 Urea nitrogen [Mass/Vol] 20 mg/dL Normal 5-27 [facility] Comment on above: Performed By: #### C NICCI, , CBCA ####[facility] ([id number])[address] [place] [address] 62328 Glucose Glucometer (BldC) [M ass/Vol]on 10-09-2023 Glucose [Mass/Vol] 132 mg/dL High 65-99 [facility] Glucose [Mass/Vol] 104 mg/dL High 65-99 [facility] MAGNESIUMon 10-09-2023 Magnesium [Mass/Vol] 2.1 mg/dL Normal 1.8-2.6 [facility] Comment on above: Performed By: #### C NICCI, , CBCA ####[facility] ([id number])[address] [place] [address] 66682 POTASSIUMon 10-09-2023 Potassium [Moles/Vol] 4.5 mmol/L Normal 3.5-5.0 [facility] Comment on above: Performed By: #### 2 823-3 ####[facility] ([id number])[address] [place] [address] 85090 BLOOD CULTUREon 10-08-2023 Bacteria identified Aer cx Nom (Bld) CULTURE RESULTS NO GROWTH 5 DAYS Normal [facility] Bacteria identified Aer cx Nom (Bld) CULTURE RESULTS NO GROWTH 5 DAYS Normal [facility] CBC AND AUTO DIFFon 10-08-19 24 ACANTHOCYTE 1+ Abnormal NONE [facility] Comment on above: Performed By: #### C NICCI, , CBCA ####[facility] ([id number])[address] [place] [address] 50533 Band form neutrophils/100 WBC (Bld) 4.0 % Normal [facility] Comment on above: Performed By: #### Bob GRAJEDA, , CBCA ####[facility] ([id number])[address] [place] [address] 27144 Erythrocyte distribution width (RBC) [Ratio] 20.9 % High 11.5-15.0 [facility] Comment on above: Performed By: #### C NICCI, , CBCA ####[facility] ([id number])[address] [place] [address] 67208 Hematocrit (Bld) [Volume fraction] 35.8 % Low 39-49 [facility] Comment on above: Performed By: #### Bob GRAJEDA, , CBCA ####[facility] ([id number])[address] [place] [address] 13966 Hemoglobin (Bld) [Mass/Vol] 11.9 g/dL Low 13.0-17.0 [facility] Comment on above: Performed By: #### Bob GRAJEDA , CBCA ####[facility] ([id number])[address] [place] [address] [place] [address] WINN-JOLLY BODY 1+ Abnormal NONE [facility] Comment on above: Performed By: #### C NICCI, , CBCA ####[facility] ([id number])[address] [place] [address] 78502 LYMPHOCYTE, ATYPICAL 1.0 % Normal [facility] Comment on above: Performed By: #### C NICCI, , CBCA ####[facility] ([id number])[address] [place] [address] 46213 Lymphocytes (Bld) [#/Vol] 4.0 10*3/uL High 1.0-3.5 [facility] Comment on above: Performed By: #### C NICCI, , CBCA ####[facility] ([id number])[address] [place] [address] 01245 Lymphocytes/100 WBC (Bld) 19.0 % Normal [facility] Comment on above: Performed By: #### C NICCI, , CBCA ####[facility] ([id number])[address] [place] [address] 27092 MCH (RBC) [Entitic mass] 33.2 pg Normal 27-34 [facility] Comment on above: Performed By: #### C NICCI, , CBCA ####[facility] ([id number])[address] [place] [address] 66084 MCHC (RBC) [Mass/Vol] 33.3 g/dL Normal 32-36 [facility] Comment on above: Performed By: #### C NICCI, , CBCA ####[facility] ([id number])[address] [place] [address] 99272 MCV (RBC) [Entitic vol] 100 fL Normal 80-100 [facility] Comment on above: Performed By: #### C NICCI, , CBCA ####[facility] ([id number])[address] [place] [address] 42488 Monocytes (Bld) [#/Vol] 2.4 10*3/uL High 0-0.9 [facility] Comment on above: Performed By: #### C NICCI, , CBCA ####[facility] ([id number])[address] [place] [address] 69117 Monocytes/100 WBC (Bld) 12.0 % Normal [facility] Comment on above: Performed By: #### C NICCI, , CBCA ####[facility] ([id number])[address] [place] [address] 41278 Neutrophils (Bld) [#/Vol] 13.4 10*3/uL High 1.5-6.6 [facility] Comment on above: Performed By: #### C NICCI, , CBCA ####[facility] ([id number])[address] [place] [address] 91431 Platelet mean volume (Bld) [Entitic vol] 9.7 fL Normal 7-12 [facility] Comment on above: Performed By: #### C NICCI, , CBCA ####[facility] ([id number])[address] [place] [address] 36663 Platelets (Bld) [#/Vol] 300 10*3/uL Normal 150-450 [facility] Comment on above: Performed By: #### C NICCI, , CBCA ####[facility] ([id number])[address] [place] [address] 74121 PROMYELOCYTE 1.0 % Normal [facility] Comment on above: Performed By: #### C NICCI, , CBCA ####[facility] ([id number])[address] [place] [address] 70551 RBC COUNT 3.60 X10E12/L Low 4.10-5.70 [facility] Comment on above: Performed By: #### C NICCI, , CBCA ####[facility] ([id number])[address] [place] [address] 06995 SEG NEUTROPHIL 63.0 % Normal [facility] Comment on above: Performed By: #### C NICCI, , CBCA ####[facility] ([id number])[address] [place] [address] 47644 TEARDROP 1+ Abnormal NONE [facility] Comment on above: Performed By: #### C NICCI, , CBCA ####[facility] ([id number])[address] [place] [address] 35872 TOXIC GRANULATION 1+ Abnormal NONE [facility] Comment on above: Performed By: #### C NICCI, , CBCA ####[facility] ([id number])[address] [place] [address] 65578 WBC (Bld) [#/Vol] 20.0 10*3/uL High 4.0-11.0 [facility] Comment on above: Performed By: #### C NICCI, , CBCA ####[facility] ([id number])[address] [place] [address] 50536 COMPREHENSIVE METABOLIC PANE Jalen 10-08-2023 Albumin [Mass/Vol] 2.4 g/dL Low 3.2-5.3 [facility] Comment on above: Performed By: #### C NICCI, , CBCA ####[facility] ([id number])[address], [place] [address] ALP [Catalytic activity/Vol] 74 U/L Normal 39-130 [facility] Comment on above: Performed By: #### C NICCI, , CBCA ####[facility] ([id number])[address] [place] [address] 55016 ALT [Catalytic activity/Vol] 15 U/L Normal 0-40 [facility] Comment on above: Performed By: #### Bob GRAJEDA, , CBCA ####[facility] ([id number])[address] [place] [address] 55562 Anion gap [Moles/Vol] 8 mmol/L Normal 5-15 [facility] Comment on above: Performed By: #### C NICCI, , CBCA ####[facility] ([id number])[address] [place] [address] 27372 AST [Catalytic activity/Vol] 12 U/L Normal 0-41 [facility] Comment on above: Performed By: #### Bob GRAJEDA, , CBCA ####[facility] ([id number])[address] [place] [address] 02922 Bilirubin [Mass/Vol] 0.6 mg/dL Normal 0.3-1.2 [facility] Comment on above: Performed By: #### Bob GRAJEDA , CBCA ####[facility] ([id number])[address] [place] [address] [place] [address] Calcium [Mass/Vol] 8.0 mg/dL Low 8.5-10.5 [facility] Comment on above: Performed By: #### Bob GRAJEDA, , CBCA ####[facility] ([id number])[address] [place] [address] 86963 Chloride [Moles/Vol] 106 mmol/L Normal 98-109 [facility] Comment on above: Performed By: #### C NICCI, , CBCA ####[facility] ([id number])[address] [place] [address] 23351 CO2 [Moles/Vol] 22 mmol/L Normal 22-32 [facility] Comment on above: Performed By: #### C NICCI, , CBCA ####[facility] ([id number])[address] [place] [address] [place] [address] Creatinine [Mass/Vol] 0.92 mg/dL Normal 0.70-1.20 [facility] Comment on above: Result Comment: METH OD TRACEABLE TO IDMS STANDARD Performed By: #### C NICCI, , CBCA ####[facility] ([id number])[address] [place] [address] [place] [address] eGFR (CKD-EPI) NON-RACE DEPENDENT >90 Normal >59 [facility] Comment on above: Result Comment: Repo rted eGFR is based on theCKD-EPI 2020 equation that doesnot use a race coefficient. Performed By: #### C NICCI, , CBCA ####[facility] ([id number])[address] [place] [address] 11316 Glucose [Mass/Vol] 103 mg/dL High 65-99 [facility] Comment on above: Performed By: #### C NICCI, , CBCA ####[facility] ([id number])[address] [place] [address] [place] [address] Potassium [Moles/Vol] 2.5 mmol/L Critically low 3.5-5.0 [facility] Comment on above: Performed By: #### C NICCI, , CBCA ####[facility] ([id number])[address] [place] [address] [place] [address] Protein [Mass/Vol] 5.4 g/dL Low 6.0-8.0 [facility] Comment on above: Performed By: #### C NICCI, , CBCA ####[facility] ([id number])[address] [place] [address] 34244 Sodium [Moles/Vol] 136 mmol/L Normal 134-146 [facility] Comment on above: Performed By: #### C NICCI, , CBCA ####[facility] ([id number])[address] [place] [address] 99698 Urea nitrogen [Mass/Vol] 26 mg/dL Normal 5-27 [facility] Comment on above: Performed By: #### C NICCI, , CBCA ####[facility] ([id number])[address] [place] [address] 90963 Glucose Glucometer (BldC) [M ass/Vol]on 10-08-2023 Glucose [Mass/Vol] 134 mg/dL High 65-99 [facility] Glucose [Mass/Vol] 117 mg/dL High 65-99 [facility] Glucose [Mass/Vol] 129 mg/dL High 65-99 [facility] MAGNESIUMon 10-08-2023 Magnesium [Mass/Vol] 2.1 mg/dL Normal 1.8-2.6 [facility] Comment on above: Performed By: #### C NICCI, , CBCA ####[facility] ([id number])[address] [place] [address] 47240 POTASSIUMon 10-08-2023 Potassium [Moles/Vol] 2.7 mmol/L Critically low 3.5-5.0 [facility] Comment on above: Performed By: #### 2 823-3 ####[facility] ([id number])[address] [place] [address] 51482 Potassium [Moles/Vol] 3.0 mmol/L Low 3.5-5.0 [facility] Comment on above: Performed By: #### 2 823-3 ####[facility] ([id number])[address] [place] [address] 79582 C DIFFICILE BY PCRon 024 C. difficile toxin genes DENIS+probe Ql (Stl) TOXIGENIC C DIFF Negative (qualifier value) 027 NAP1 Negative (qualifier value) Normal PRNEG [facility] Comment on above: Performed By: #### 5 4067-4 ####[facility] ([id number])[address] [facility], [address] [place] [address] CBC AND AUTO DIFFon 10-07-19 24 Band form neutrophils/100 WBC (Bld) 7.0 % Normal [facility] Comment on above: Performed By: #### C NICCI, , CBCA, 35015-3, 95612-5, ####[facility] ([id number])[address] [place] [address] 16684 Erythrocyte distribution width (RBC) [Ratio] 21.4 % High 11.5-15.0 [facility] Comment on above: Performed By: #### C NICCI, , CBCA, 20105-4, 13308-1, ####[facility] ([id number])[address] [place] [address] 85283 Hematocrit (Bld) [Volume fraction] 42.9 % Normal 39-49 [facility] Comment on above: Performed By: #### C NICCI, , CBCA, 91170-8, 78361-4, ####[facility] ([id number])[address] [place] [address] 88003 Hemoglobin (Bld) [Mass/Vol] 14.2 g/dL Normal 13.0-17.0 [facility] Comment on above: Performed By: #### C NICCI, , CBCA, 29680-0, 38365-8, ####[facility] ([id number])[address] [place] [address] 96568 WINN-JOLLY BODY 1+ Abnormal NONE [facility] Comment on above: Performed By: #### C NICCI, , CBCA, 30342-9, 83775-8, ####[facility] ([id number])[address] [place] [address] 25474 Lymphocytes (Bld) [#/Vol] 4.4 10*3/uL High 1.0-3.5 [facility] Comment on above: Performed By: #### C NICCI, , CBCA, 52299-3, 17296-9, ####[facility] ([id number])[address] [place] [address] 17624 Lymphocytes/100 WBC (Bld) 36.0 % Normal [facility] Comment on above: Performed By: #### C NICCI, , CBCA, 96248-5, 49872-7, ####[facility] ([id number])[address] [place] [address] 87718 MCH (RBC) [Entitic mass] 33.1 pg Normal 27-34 [facility] Comment on above: Performed By: #### C NICCI, , CBCA, 63519-2, 73259-1, ####[facility] ([id number])[address] [place] [address] 92024 MCHC (RBC) [Mass/Vol] 33.0 g/dL Normal 32-36 [facility] Comment on above: Performed By: #### C NICCI, , CBCA, 54332-3, 22412-7, ####[facility] ([id number])[address] [place] [address] MCV (RBC) [Entitic vol] 100 fL Normal 80-100 [facility] Comment on above: Performed By: #### C NICCI, , CBCA, 39701-5, 97323-7, ####[facility] ([id number])[address] [place] [address] 45065 Monocytes (Bld) [#/Vol] 1.7 10*3/uL High 0-0.9 [facility] Comment on above: Performed By: #### C NICCI, , CBCA, 44473-5, 77284-8, ####[facility] ([id number])[address] [place] [address] 93158 Monocytes/100 WBC (Bld) 14.0 % Normal [facility] Comment on above: Performed By: #### Bob GRAJEDA, , CBCA, 10355-3, 31171-4, ####[facility] ([id number])[address] [place] [address] 66373 Neutrophils (Bld) [#/Vol] 6.1 10*3/uL Normal 1.5-6.6 [facility] Comment on above: Performed By: #### Bob GRAJEDA, , CBCA, 94868-0, 55769-8, ####[facility] ([id number])[address] [place] [address] 14985 Platelet mean volume (Bld) [Entitic vol] 9.9 fL Normal 7-12 [facility] Comment on above: Performed By: #### Bob GRAJEDA, , CBCA, 98880-3, 51450-8, ####[facility] ([id number])[address] [place] [address] 69428 Platelets (Bld) [#/Vol] 295 10*3/uL Normal 150-450 [facility] Comment on above: Performed By: #### C MP, , CBCA, 50673-6, 42914-1, ####[facility] ([id number])[address] [place] [address] 47597 RBC COUNT 4.27 X10E12/L Normal 4.10-5.70 [facility] Comment on above: Performed By: #### C MP, , CBCA, 83521-7, 81057-9, ####[facility] ([id number])[address] [place] [address] 43489 SEG NEUTROPHIL 43.0 % Normal [facility] Comment on above: Performed By: #### Bob GRAJEDA, , CBCA, 09896-6, 51177-5, ####[facility] ([id number])[address] [place] [address] 68276 TOXIC GRANULATION 1+ Abnormal NONE [facility] Comment on above: Performed By: #### C NICCI, , CBCA, 17418-6, 12095-6, ####[facility] ([id number])[address] [place] [address] 31646 WBC (Bld) [#/Vol] 12.2 10*3/uL High 4.0-11.0 [facility] Comment on above: Performed By: #### C NICCI, , CBCA, 14086-4, 78728-7, ####[facility] ([id number])[address] [place] [address] 15111 COMPREHENSIVE METABOLIC PANE Jalen 10-07-2023 Albumin [Mass/Vol] 2.8 g/dL Low 3.2-5.3 [facility] Comment on above: Performed By: #### C NICCI, 11224-1, CBCA, 30105-2, 93257-2, ####[facility] ([id number])[address] [place] [address] 94667 ALP [Catalytic activity/Vol] 85 U/L Normal 39-130 [facility] Comment on above: Performed By: #### C MP, 87895-5, CBCA, 59615-2, 32010-9, ####[facility] ([id number])[address] [place] [address] 61928 ALT [Catalytic activity/Vol] 18 U/L Normal 0-40 [facility] Comment on above: Performed By: #### C MP, 97831-6, CBCA, 09405-5, 49660-5, ####[facility] ([id number])[address] [place] [address] 49700 Anion gap [Moles/Vol] 11 mmol/L Normal 5-15 [facility] Comment on above: Performed By: #### C NICCI, , CBCA, 13374-3, 63671-0, ####[facility] ([id number])[address] [place] [address] 99741 AST [Catalytic activity/Vol] 16 U/L Normal 0-41 [facility] Comment on above: Performed By: #### C MP, 79128-4, CBCA, 85881-0, 63262-9, ####[facility] ([id number])[address] [place] [address] 11991 Bilirubin [Mass/Vol] 0.6 mg/dL Normal 0.3-1.2 [facility] Comment on above: Performed By: #### C MP, 84024-2, CBCA, 28827-8, 38340-8, ####[facility] ([id number])[address] [place] [address] 90887 Calcium [Mass/Vol] 8.5 mg/dL Normal 8.5-10.5 [facility] Comment on above: Performed By: #### C NICCI, , CBCA, 66703-8, 69871-2, ####[facility] ([id number])[address] [place] [address] 26466 Chloride [Moles/Vol] 102 mmol/L Normal 98-109 [facility] Comment on above: Performed By: #### C NICCI, , CBCA, 54961-0, 61275-3, ####[facility] ([id number])[address] [place] [address] 81114 CO2 [Moles/Vol] 23 mmol/L Normal 22-32 [facility] Comment on above: Performed By: #### C NICCI, , CBCA, 37834-8, 67646-3, ####[facility] ([id number])[address] [place] [address] 29153 Creatinine [Mass/Vol] 0.84 mg/dL Normal 0.70-1.20 [facility] Comment on above: Result Comment: METH OD TRACEABLE TO IDMS STANDARD Performed By: #### C NICCI, , CBCA, 38904-5, 04358-3, 1987-07 ####[facility] ([id number])[address] [place] [address] 76047 eGFR (CKD-EPI) NON-RACE DEPENDENT >90 Normal >59 [facility] Comment on above: Result Comment: Repo rted eGFR is based on theCKD-EPI 2020 equation that doesnot use a race coefficient. Performed By: #### C NICCI, 35477-4, CBCA, 78276-2, 09222-3, 1987-07 ####[facility] ([id number])[address] [place] [address], [place] [address] Glucose [Mass/Vol] 141 mg/dL High 65-99 [facility] Comment on above: Performed By: #### C NICCI, , CBCA, 35972-9, 31056-3, ####[facility] ([id number])[address] [place] [address] 38040 Potassium [Moles/Vol] 3.8 mmol/L Normal 3.5-5.0 [facility] Comment on above: Performed By: #### C NICCI, , CBCA, 60214-5, 02812-1, ####[facility] ([id number])[address] [place] [address] 08136 Protein [Mass/Vol] 6.1 g/dL Normal 6.0-8.0 [facility] Comment on above: Performed By: #### C NICCI, , CBCA, 13282-4, 94942-0, ####[facility] ([id number])[address] [place] [address] 08217 Sodium [Moles/Vol] 136 mmol/L Normal 134-146 [facility] Comment on above: Performed By: #### Bob GRAJEDA, , CBCA, 28695-6, 41806-3, ####[facility] ([id number])[address] [place] [address] [place] [address] Urea nitrogen [Mass/Vol] 19 mg/dL Normal 5-27 [facility] Comment on above: Performed By: #### C NICCI, , CBCA, 35012-0, 82678-3, ####[facility] ([id number])[address] [place] [address] [place] [address] CRP [Mass/Vol]on 10-07-2023 C REACTIVE PROTEIN 23.8 mg/dL High 0.000-0.744 [facility] Comment on above: Performed By: #### C MP, , CBCA, 47538-9, 76013-3, ####[facility] ([id number])[address] [place] [address] CT ABDOMEN AND PELVIS W CONT on 10-07-2023 CT ABDOMEN AND PELVIS W CONT Normal [facility] CT CTA CHESTon 10-07-2023 CT CTA CHEST Normal [facility] Fibrin D-dimer DDU (PPP) [Ma ss/Vol]on 10-07-2023 D DIMER 1362 ng/mL DDU High <255 [facility] Comment on above: Result Comment: Resu lts >=255ng/mL DDU: Results may beindicative of the presence of VTE. The useof the Wells score and further diagnostictests should be considered. Elevated D-Dimerlevels can also be associated with DIC,neoplasm, , trauma and liver disease.Elevated levels of rheumatoid factor may leadto an overestimation of the D-Dimer level. Performed By: #### 4 8066-5 ####[facility] ([id number])[address] [place] [address] Glucose Glucometer (BldC) [M ass/Vol]on 10-07-2023 Glucose [Mass/Vol] 143 mg/dL High 65-99 [facility] Glucose [Mass/Vol] 133 mg/dL High 65-99 [facility] MAGNESIUMon 10-07-2023 Magnesium [Mass/Vol] 2.2 mg/dL Normal 1.8-2.6 [facility] Comment on above: Performed By: #### C MP, , CBCA, 78121-4, 61290-8, ####[facility] ([id number])[address] [place] [address] Natriuretic peptide B [Mass/ Vol]on 10-07-2023 Natriuretic peptide B (Bld) [Mass/Vol] 35 pg/mL Normal <100.0 [facility] Comment on above: Performed By: #### C NICCI, , CBCA, 22332-9, 11724-1, ####[facility] ([id number])[address] [place] [address] Procalcitonin IA [Mass/Vol]o n 10-07-2023 PROCALCITONIN 0.45 ng/mL High <0.05 [facility] Comment on above: Result Comment: NOTE <0.50 ng/mL - Low risk of severe sepsis and/or septic shock.<2.00 ng/mL - Recommend retesting within 6-24 hours.>2.00 ng/mL - High risk of sepsis and/or septic shock. Performed By: #### C NICCI, , CBCA, 30685-6, 87285-8, 1987-07 ####[facility] ([id number])[address] [place] [address] 83556 CBC AND AUTO DIFFon 10-06-19 24 Band form neutrophils/100 WBC (Bld) 17.0 % Normal [facility] Comment on above: Performed By: #### C NICCI, ####[facility] ([id number])[address] [place] [address] 80340#### CBCA ####[facility] ([id number])[address] [place] [address] [facility] ([id number])[address] [facility], [address] [place] [address] Erythrocyte distribution width (RBC) [Ratio] 20.9 % High 11.5-15.0 [facility] Comment on above: Performed By: #### C NICCI, ####[facility] ([id number])[address] [place] [address] 91882#### CBCA ####[facility] ([id number])[address] [place] [address] 85931SVQBZRADAMS COUNTY HOSPITAL [facility] ([id number])[address], [address], [place] [address] Hematocrit (Bld) [Volume fraction] 36.2 % Low 39-49 [facility] Comment on above: Performed By: #### C NICCI, 19317-4 ####[facility] ([id number])[address] [place] [address] 43350#### CBCA ####[facility] ([id number])[address] [place] [address] 68016YSSDPZADAMS COUNTY HOSPITAL [facility] ([id number])[address], [address] [address] Hemoglobin (Bld) [Mass/Vol] 12.4 g/dL Low 13.0-17.0 [facility] Comment on above: Performed By: #### C NICCI, ####[facility] ([id number])[address] [place] [address] 19418#### CBCA ####[facility] ([id number])[address] [place] [address] 76817ZVEWUYADAMS COUNTY HOSPITAL [facility] ([id number])[address] [address] Lymphocytes (Bld) [#/Vol] 5.9 10*3/uL High 1.0-3.5 [facility] Comment on above: Performed By: #### C NICCI, ####[facility] ([id number])[address] [place] [address] 95500#### CBCA ####[facility] ([id number])[address] [place] [address] 38162XURAMWADAMS COUNTY HOSPITAL [facility] ([id number])[address], [address] [address] Lymphocytes/100 WBC (Bld) 60.0 % Normal [facility] Comment on above: Performed By: #### Bob GRAJEDA, ####[facility] ([id number])[address] [place] [address] 04662#### CBCA ####[facility] ([id number])[address] [place] [address] LAB ([id number])[address], [address] [place] [address]455 MCH (RBC) [Entitic mass] 34.0 pg Normal 27-34 [facility] Comment on above: Performed By: #### Bob GRAJEDA, ####[facility] ([id number])[address] [place] [address] 29985#### CBCA ####[facility] ([id number])[address] [place] [address] [place] [address] LAB ([id number])[address] [address] MCHC (RBC) [Mass/Vol] 34.3 g/dL Normal 32-36 [facility] Comment on above: Performed By: #### Bob GRAJEDA, ####[facility] ([id number])[address] [place] [address] 51113#### CBCA ####[facility] ([id number])[address] [place] [address] LAB ([id number])[address] [address] MCV (RBC) [Entitic vol] 99 fL Normal 80-100 [facility] Comment on above: Performed By: #### Bob GRAJEDA, ####[facility] ([id number])[address] [place] [address]#### CBCA ####[facility] ([id number])[address] [place] [address] 78496MUWZSDADAMS COUNTY HOSPITAL [facility] ([id number])[address], [address], [place] [address] Monocytes (Bld) [#/Vol] 1.6 10*3/uL High 0-0.9 [facility] Comment on above: Performed By: #### C NICCI, ####[facility] ([id number])[address] [place] [address] 34566#### CBCA ####[facility] ([id number])[address] [place] [address] 55319JXHXJHADAMS COUNTY HOSPITAL [facility] ([id number])[address], [address] [place] [address] Monocytes/100 WBC (Bld) 16.0 % Normal [facility] Comment on above: Performed By: #### C NICCI, ####[facility] ([id number])[address] [place] [address] 43842#### CBCA ####[facility] ([id number])[address] [place] [address] 11614WDABGEADAMS COUNTY HOSPITAL [facility] ([id number])[address], [address], [place] [address] MYELOCYTE 1.0 % Normal [facility] Comment on above: Performed By: #### C NICCI, ####[facility] ([id number])[address] [place] [address] 98376#### CBCA ####[facility] ([id number])[address] [place] [address] [facility] [facility] ([id number])[address], [address] [place] [address] 58754 Neutrophils (Bld) [#/Vol] 2.3 10*3/uL Normal 1.5-6.6 [facility] Comment on above: Performed By: #### Bob GRAJEDA, ####[facility] ([id number])[address] [place] [address] 24091#### CBCA ####[facility] ([id number])[address] [place] [address] LAB ([id number])[address], [address] [place] [address] 14237 NUCLEATED RBC 1.0 /100 WBC Normal 0.0-1.0 [facility] Comment on above: Performed By: #### Bob GRAJEDA, ####[facility] ([id number])[address] [place] [address] 06023#### CBCA ####[facility] ([id number])[address] [place] [address] LAB ([id number])[address], [address] [place] [address]77 Platelet mean volume (Bld) [Entitic vol] 9.4 fL Normal 7-12 [facility] Comment on above: Performed By: #### Bob GRAJEDA, ####[facility] ([id number])[address] [place] [address] 92500#### CBCA ####[facility] ([id number])[address] [place] [address] LAB ([id number])[address], [address] [place] [address] 029[address] Platelets (Bld) [#/Vol] 272 10*3/uL Normal 150-450 [facility] Comment on above: Performed By: #### Bob GRAJEDA, ####[facility] ([id number])[address] [place] [address] 01369#### CBCA ####[facility] ([id number])[address] [place] [address] 13931LNYUQUADAMS COUNTY HOSPITAL [facility] ([id number])[address], [address], [place] [address] RBC COUNT 3.65 X10E12/L Low 4.10-5.70 [facility] Comment on above: Performed By: #### C NICCI, 34925-5 ####[facility] ([id number])[address] [place] [address] 12143#### CBCA ####[facility] ([id number])[address] [place] [address] [place] [address] LAB ([id number])[address], [address] [place] [address] 847[address] RBC morphology finding Nom (Bld) NORMAL Normal [facility] Comment on above: Performed By: #### C NICCI, ####[facility] ([id number])[address] [place] [address] 84992#### CBCA ####[facility] ([id number])[address] [place] [address] 14873RRUEFZADAMS COUNTY HOSPITAL [facility] ([id number])[address], [address] [place] [address] 00568 SEG NEUTROPHIL 6.0 % Normal [facility] Comment on above: Performed By: #### Bob GRAJEDA, ####[facility] ([id number])[address] [place] [address] 54844#### CBCA ####[facility] ([id number])[address] [place] [address] [facility] [address] [facility] ([id number])[address], [address], [place] [address] TOXIC GRANULATION 1+ Abnormal NONE [facility] Comment on above: Performed By: #### Bob GRAJEDA, ####[facility] ([id number])[address] [place] [address] 45769#### CBCA ####[facility] ([id number])[address] [place] [address] 86590OVVJTIADAMS COUNTY HOSPITAL LAB ([id number])[address], [address] [place] [address] 66406 WBC (Bld) [#/Vol] 9.8 10*3/uL Normal 4.0-11.0 [facility] Comment on above: Performed By: #### Bob GRAJEDA, ####[facility] ([id number])[address] [place] [address] 41462#### CBCA ####[facility] ([id number])[address] [place] [address] 35764HIDHPUADAMS COUNTY HOSPITAL LAB ([id number])[address], [address] [address] COMPREHENSIVE METABOLIC PANE Jalen 10-06-2023 Albumin [Mass/Vol] 2.6 g/dL Low 3.2-5.3 [facility] Comment on above: Performed By: #### Bob GRAJEDA, ####[facility] ([id number])[address] [place] [address] 38775#### CBCA ####[facility] ([id number])[address] [place] [address] 04023JJTYJRADAMS COUNTY HOSPITAL [facility] ([id number])[address], [address] [place] [address] 34873 ALP [Catalytic activity/Vol] 71 U/L Normal 39-130 [facility] Comment on above: Performed By: #### Bob GRAJEDA, ####[facility] ([id number])[address] [place] [address], [place] [address]#### CBCA ####[facility] ([id number])[address] [place] [address] [facility] ([id number])[address], [address] [place] [address] ALT [Catalytic activity/Vol] 18 U/L Normal 0-40 [facility] Comment on above: Performed By: #### Bob GRAJEDA, 82481-3 ####[facility] ([id number])[address] [place] [address] 43790#### CBCA ####[facility] ([id number])[address] [place] [address] [facility] ([id number])[address], [address] [place] [address] Anion gap [Moles/Vol] 7 mmol/L Normal 5-15 [facility] Comment on above: Performed By: #### Bob GRAJEDA, ####[facility] ([id number])[address] [place] [address] 00469#### CBCA ####[facility] ([id number])[address] [place] [address] [facility] ([id number])[address], [address] [place] [address] AST [Catalytic activity/Vol] 11 U/L Normal 0-41 [facility] Comment on above: Performed By: #### Bob GRAJEDA, ####[facility] ([id number])[address] [place] [address] 47268#### CBCA ####[facility] ([id number])[address] [place] [address] 32659BIWPKFADAMS COUNTY HOSPITAL [facility] ([id number])[address], [address], [place] [address] Bilirubin [Mass/Vol] 0.7 mg/dL Normal 0.3-1.2 [facility] Comment on above: Performed By: #### Bob GRAJEDA, ####[facility] ([id number])[address] [place] [address] 32543#### CBCA ####[facility] ([id number])[address] [place] [address] 57681UQFBQMADAMS COUNTY HOSPITAL [facility] ([id number])[address], [address] [place] [address] Calcium [Mass/Vol] 7.8 mg/dL Low 8.5-10.5 [facility] Comment on above: Performed By: #### Bob GRAJEDA, ####[facility] ([id number])[address] [place] [address] 93646#### CBCA ####[facility] ([id number])[address] [place] [address] 15740BPJUWGADAMS COUNTY HOSPITAL [facility] ([id number])[address], [address] [place] [address]185 Chloride [Moles/Vol] 101 mmol/L Normal 98-109 [facility] Comment on above: Performed By: #### Bob GRAJEDA, ####[facility] ([id number])[address] [place] [address] 79331#### CBCA ####[facility] ([id number])[address] [place] [address] 54360VGHSTIADAMS COUNTY HOSPITAL [facility] ([id number])[address], [address], [place] [address] CO2 [Moles/Vol] 24 mmol/L Normal 22-32 [facility] Comment on above: Performed By: #### Bob GRAJEDA, ####[facility] ([id number])[address] [place] [address] 96966#### CBCTrang ####[facility] ([id number])[address] [place] [address] 40003ZXGCGOADAMS COUNTY HOSPITAL [facility] ([id number])[address], [address], [place] [address] Creatinine [Mass/Vol] 0.74 mg/dL Normal 0.70-1.20 [facility] Comment on above: Result Comment: METH OD TRACEABLE TO IDMS STANDARD Performed By: #### C NICCI, ####[facility] ([id number])[address] [place] [address] 38808#### OG ####[facility] ([id number])[address] [place] [address] 88876FWWWQRADAMS COUNTY HOSPITAL [facility] ([id number])[address], [address] [place] [address] eGFR (CKD-EPI) NON-RACE DEPENDENT >90 Normal >59 [facility] Comment on above: Result Comment: Repo rted eGFR is based on theCKD-EPI 2020 equation that doesnot use a race coefficient. Performed By: #### C NICCI, ####[facility] ([id number])[address] [place] [address] 21557#### OG ####[facility] ([id number])[address] [place] [address] 37937WHXJNOADAMS COUNTY HOSPITAL [facility] ([id number])[address], [address] [place] [address] Glucose [Mass/Vol] 119 mg/dL High 65-99 [facility] Comment on above: Performed By: #### C NICCI, ####[facility] ([id number])[address] [place] [address] 69678#### CBCA ####[facility] ([id number])[address] [place] [address] 78107QHIBGIADAMS COUNTY HOSPITAL [facility] ([id number])[address], [address], [place] [address] Potassium [Moles/Vol] 2.9 mmol/L Low 3.5-5.0 [facility] Comment on above: Performed By: #### C NICCI, ####[facility] ([id number])[address] [place] [address] 49897#### CBCA ####[facility] ([id number])[address] [place] [address] 81547SLLBEWADAMS COUNTY HOSPITAL [facility] ([id number])[address], [address], [place] [address] Protein [Mass/Vol] 5.5 g/dL Low 6.0-8.0 [facility] Comment on above: Performed By: #### C NICCI, ####[facility] ([id number])[address] [place] [address] 08610#### CBCA ####[facility] ([id number])[address] [place] [address] 09884YACPQDADAMS COUNTY HOSPITAL [facility] ([id number])[address], [address] [place] [address] Sodium [Moles/Vol] 132 mmol/L Low 134-146 [facility] Comment on above: Performed By: #### C NICCI, ####[facility] ([id number])[address] [place] [address] 16055#### CBCA ####[facility] ([id number])[address] [place] [address] 14582YPOJWBADAMS COUNTY HOSPITAL [facility] ([id number])[address] [facility], [address], [place] [address] Urea nitrogen [Mass/Vol] 16 mg/dL Normal 5-27 [facility] Comment on above: Performed By: #### C NICCI, 87134-0 ####[facility] ([id number])[address] [place] [address] 04479#### CBCA ####[facility] ([id number])[address] [place] [address] 35786XJXLWBADAMS COUNTY HOSPITAL [facility] ([id number])[address] [facility], [address] [address] MAGNESIUMon 10-06-2023 Magnesium [Mass/Vol] 2.1 mg/dL Normal 1.8-2.6 [facility] Comment on above: Performed By: #### C NICCI, 69638-2 ####[facility] ([id number])[address] [place] [address] 74416#### CBCA ####[facility] ([id number])[address] [place] [address] 50066THPWMYADAMS COUNTY HOSPITAL [facility] ([id number])[address] [facility], [address] [address] POTASSIUMon 10-06-2023 Potassium [Moles/Vol] 4.0 mmol/L Normal 3.5-5.0 [facility] Comment on above: Performed By: #### 2 823-3 ####[facility] ([id number])[address] [place] [address] 53786 Potassium [Moles/Vol] 3.4 mmol/L Low 3.5-5.0 [facility] Comment on above: Performed By: #### 2 823-3 ####[facility] ([id number])[address] [place] [address] 66520 URINALYSISon 10-06-2023 Amorphous sediment LM Ql (Urine sed) PRESENT Abnormal NONE [facility] Comment on above: Performed By: #### U A ####[facility] ([id number])[address] [place] [address] [place] [address] Bilirubin Ql (U) Negative Normal NEG [facility] Comment on above: Performed By: #### U A ####[facility] ([id number])[address] [place] [address] [place] [address] BLOOD/HGB Negative Normal NEG [facility] Comment on above: Performed By: #### U A ####[facility] ([id number])[address] [place] [address] [place] [address] Color (U) YELLOW Normal YELLOW [facility] Comment on above: Performed By: #### U A ####[facility] ([id number])[address] [place] [address] 37172 Glucose Ql (U) Negative Normal NEG [facility] Comment on above: Performed By: #### U A ####[facility] ([id number])[address] [place] [address], [place] [address] Hyaline casts LM Ql (Urine sed) 5 to 10 Normal 0-2 [facility] Comment on above: Performed By: #### U A ####[facility] ([id number])[address] [place] [address] [place] [address] Ketones Ql (U) Negative Normal NEG [facility] Comment on above: Performed By: #### U A ####[facility] ([id number])[address] [place] [address] [place] [address] Leukocyte esterase Test strip Ql (U) Negative Normal NEG [facility] Comment on above: Performed By: #### U A ####[facility] ([id number])[address] [place] [address] [place] [address] Nitrite Ql (U) Negative Normal NEG [facility] Comment on above: Performed By: #### U A ####[facility] ([id number])[address] [place] [address] 13811 pH (U) 6.0 [pH] Normal 5.0-8.5 [facility] Comment on above: Performed By: #### U A ####[facility] ([id number])[address] [place] [address] 24052 Protein Ql (U) 100 mg/dL Abnormal NEG [facility] Comment on above: Performed By: #### U A ####[facility] ([id number])[address] [place] [address] 95222 R.B.CELLS 0 to 2 Normal 0-5 [facility] Comment on above: Performed By: #### U A ####[facility] ([id number])[address] [place] [address] 47874 Specific gravity (U) [Rel density] >1.030 Normal 1.003-1.035 [facility] Comment on above: Performed By: #### U A ####[facility] ([id number])[address] [place] [address] 47054 SQUAMOUS EPITHELIUM 2 to 5 Normal 0-5 [facility] Comment on above: Performed By: #### U A ####[facility] ([id number])[address] [place] [address] 55882 TURBIDITY CLEAR Normal CLEAR [facility] Comment on above: Performed By: #### U A ####[facility] ([id number])[address] [place] [address] 64401 Urobilinogen Qn (U) 0.2 {Alem'U}/dL Normal <1.1 [facility] Comment on above: Performed By: #### U A ####[facility] ([id number])[address] [place] [address] 40424 W.B.CELLS 5 to 10 Normal 0-5 [facility] Comment on above: Performed By: #### U A ####[facility] ([id number])[address] [place] [address] 81065 CBC AND AUTO DIFFon 10-05-19 Erythrocyte distribution width (RBC) [Ratio] 21.1 % High 11.5-15.0 [facility] Comment on above: Performed By: #### C MAGALI WOODALL, ####[facility] ([id number])[address] [place] [address] 71666 Hematocrit (Bld) [Volume fraction] 37.1 % Low 39-49 [facility] Comment on above: Performed By: #### Bob WOODALL CMP, ####[facility] ([id number])[address] [place] [address] 15636 Hemoglobin (Bld) [Mass/Vol] 12.4 g/dL Low 13.0-17.0 [facility] Comment on above: Performed By: #### Bob WOODALL [facility], ####[facility] ([id number])[address] [place] [address] [place] [address] WINN-JOLLY BODY 1+ Abnormal NONE [facility] Comment on above: Performed By: #### Bob WOODALL CMP, ####[facility] ([id number])[address] [place] [address] 80950 LYMPHOCYTE, ATYPICAL 41.0 % Normal [facility] Comment on above: Performed By: #### Bob WOODALL CMP, ####[facility] ([id number])[address] [place] [address] 00787 Lymphocytes (Bld) [#/Vol] 7.4 10*3/uL High 1.0-3.5 [facility] Comment on above: Performed By: #### C TALISHA CMP, ####[facility] ([id number])[address] [place] [address] 26313 Lymphocytes/100 WBC (Bld) 52.0 % Normal [facility] Comment on above: Performed By: #### Bob WOODALL CMP, ####[facility] ([id number])[address] [place] [address] 19958 MCH (RBC) [Entitic mass] 33.3 pg Normal 27-34 [facility] Comment on above: Performed By: #### Bob WOODALL CMP, ####[facility] ([id number])[address] [place] [address] 02390 MCHC (RBC) [Mass/Vol] 33.5 g/dL Normal 32-36 [facility] Comment on above: Performed By: #### Bob WOODALL CMP, ####[facility] ([id number])[address] [place] [address] 66116 MCV (RBC) [Entitic vol] 99 fL Normal 80-100 [facility] Comment on above: Performed By: #### Bob WOODALL CMP, ####[facility] ([id number])[address] [place] [address] 91325 Monocytes (Bld) [#/Vol] 0.6 10*3/uL Normal 0-0.9 [facility] Comment on above: Performed By: #### Bob WOODALL, CMP, ####[facility] ([id number])[address] [place] [address] 04574 Monocytes/100 WBC (Bld) 7.0 % Normal [facility] Comment on above: Performed By: #### Bob WOODALL, CMP, ####[facility] ([id number])[address] [place] [address] 94943 Neutrophils (Bld) [#/Vol] 0.0 10*3/uL Low 1.5-6.6 [facility] Comment on above: Performed By: #### Bob WOODALL CMP, [id number] ####[facility] ([id number])[address] [place] [address] 34441 NUCLEATED RBC 1.0 /100 WBC Normal 0.0-1.0 [facility] Comment on above: Performed By: #### Bob WOODALL CMP, ####[facility] ([id number])[address] [place] [address] 58776 Platelet mean volume (Bld) [Entitic vol] 9.4 fL Normal 7-12 [facility] Comment on above: Performed By: #### Bob WOODALL CMP, ####[facility] ([id number])[address] [place] [address] 96950 Platelets (Bld) [#/Vol] 195 10*3/uL Normal 150-450 [facility] Comment on above: Performed By: #### Bob WOODALL [facility], ####[facility] ([id number])[address] [place] [address] 56636 POLYCHROMASIA 1+ Abnormal NONE [facility] Comment on above: Performed By: #### Bob WOODALL CMP, ####[facility] ([id number])[address] [place] [address] 91127 RBC COUNT 3.74 X10E12/L Low 4.10-5.70 [facility] Comment on above: Performed By: #### Bob WOODALL CMP, [id number] ####[facility] ([id number])[address] [place] [address] 33545 SEG NEUTROPHIL 0.0 % Normal [facility] Comment on above: Performed By: #### C BCA, CMP, ####[facility] ([id number])[address] [place] [address] 48747 STOMATOCYTE 1+ Abnormal NONE [facility] Comment on above: Performed By: #### C BCA, CMP, ####[facility] ([id number])[address] [place] [address] 97283 TARGET 1+ Abnormal NONE [facility] Comment on above: Performed By: #### C BCA, CMP, [id number] ####[facility] ([id number])[address] [place] [address] 67081 WBC (Bld) [#/Vol] 8.0 10*3/uL Normal 4.0-11.0 [facility] Comment on above: Performed By: #### C BCA, CMP, ####[facility] ([id number])[address] [place] [address] 90131 COMPREHENSIVE METABOLIC PANE Jalen 10-05-2023 Albumin [Mass/Vol] 2.7 g/dL Low 3.2-5.3 [facility] Comment on above: Performed By: #### C BCA, CMP, ####[facility] ([id number])[address] [place] [address] 73701 ALP [Catalytic activity/Vol] 71 U/L Normal 39-130 [facility] Comment on above: Performed By: #### C BCA, CMP, 64966-5 ####[facility] ([id number])[address] [place] [address] 29582 ALT [Catalytic activity/Vol] 23 U/L Normal 0-40 [facility] Comment on above: Performed By: #### C BCA, CMP, ####[facility] ([id number])[address] [place] [address], [place] [address] Anion gap [Moles/Vol] 10 mmol/L Normal 5-15 [facility] Comment on above: Performed By: #### C TALISHA CMP, ####[facility] ([id number])[address] [place] [address], [place] [address] AST [Catalytic activity/Vol] 18 U/L Normal 0-41 [facility] Comment on above: Performed By: #### C TALISHA CMP, ####[facility] ([id number])[address] [place] [address] 29338 Bilirubin [Mass/Vol] 0.7 mg/dL Normal 0.3-1.2 [facility] Comment on above: Performed By: #### C MAGALI WOODALL, ####[facility] ([id number])[address] [place] [address] [place] [address] Calcium [Mass/Vol] 7.8 mg/dL Low 8.5-10.5 [facility] Comment on above: Performed By: #### C TALISHA [facility], ####[facility] ([id number])[address] [place] [address] [place] [address] Chloride [Moles/Vol] 98 mmol/L Normal 98-109 [facility] Comment on above: Performed By: #### C BCA CMP, ####[facility] ([id number])[address] [place] [address], [place] [address] CO2 [Moles/Vol] 24 mmol/L Normal 22-32 [facility] Comment on above: Performed By: #### C BCA, CMP, ####[facility] ([id number])[address] [place] [address], [place] [address] Creatinine [Mass/Vol] 0.75 mg/dL Normal 0.70-1.20 [facility] Comment on above: Result Comment: METH OD TRACEABLE TO IDMS STANDARD Performed By: #### C MAGALI WOODALL, 84620-7 ####[facility] ([id number])[address] [place] [address] [place] [address] eGFR (CKD-EPI) NON-RACE DEPENDENT >90 Normal >59 [facility] Comment on above: Result Comment: Repo rted eGFR is based on theCKD-EPI 2020 equation that doesnot use a race coefficient. Performed By: #### C MAGALI WOODALL, ####[facility] ([id number])[address] [place] [address] 76999 Glucose [Mass/Vol] 108 mg/dL High 65-99 [facility] Comment on above: Performed By: #### C MAGALI WOODALL, ####[facility] ([id number])[address] [place] [address] 33228 Potassium [Moles/Vol] 3.0 mmol/L Low 3.5-5.0 [facility] Comment on above: Performed By: #### C TALISHA [facility], ####[facility] ([id number])[address] [place] [address] 93481 Protein [Mass/Vol] 5.7 g/dL Low 6.0-8.0 [facility] Comment on above: Performed By: #### C MAGALI WOODALL, ####[facility] ([id number])[address] [place] [address] [place] [address] Sodium [Moles/Vol] 132 mmol/L Low 134-146 [facility] Comment on above: Performed By: #### C MAGALI WOODALL, ####[facility] ([id number])[address] [place] [address] 31941 Urea nitrogen [Mass/Vol] 13 mg/dL Normal 5-27 [facility] Comment on above: Performed By: #### C TALISHA, MAGALI, [id number] ####[facility] ([id number])[address] [place] [address] 02959 Glucose Glucometer (BldC) [M ass/Vol]on 10-05-2023 Glucose [Mass/Vol] 143 mg/dL High 65-99 [facility] MAGNESIUMon 10-05-2023 Magnesium [Mass/Vol] 2.1 mg/dL Normal 1.8-2.6 [facility] Comment on above: Performed By: #### C TALISHA, [facility], 79976-3 ####[facility] ([id number])[address] [place] [address] 03616 POTASSIUMon 10-05-2023 Potassium [Moles/Vol] 3.7 mmol/L Normal 3.5-5.0 [facility] Comment on above: Performed By: #### 2 823-3 ####[facility] ([id number])[address] [place] [address] 37177 Potassium [Moles/Vol] 3.3 mmol/L Low 3.5-5.0 [facility] Comment on above: Performed By: #### 2 823-3 ####[facility] ([id number])[address] [place] [address] 67193 CBC AND AUTO DIFFon 10-04-19 24 DIFFERENTIAL COMMENT NOTE REDUCTION OF NEUTROPHILS Normal [facility] Comment on above: Performed By: #### C NICCI, , CBCA ####[facility] ([id number])[address] [place] [address] 75445 Eosinophils (Bld) [#/Vol] 0.0 10*3/uL Normal 0.0-0.4 [facility] Comment on above: Performed By: #### C NICCI, , CBCA ####[facility] ([id number])[address] [place] [address] [place] [address] Eosinophils/100 WBC (Bld) 1.0 % Normal [facility] Comment on above: Performed By: #### C NICCI, , CBCA ####[facility] ([id number])[address] [place] [address] 48093 Erythrocyte distribution width (RBC) [Ratio] 20.9 % High 11.5-15.0 [facility] Comment on above: Performed By: #### C NICCI, , CBCA ####[facility] ([id number])[address] [place] [address] 78198 FRAGMENT 1+ Abnormal NONE [facility] Comment on above: Performed By: #### C NICCI, , CBCA ####[facility] ([id number])[address] [place] [address] 36471 Hematocrit (Bld) [Volume fraction] 35.3 % Low 39-49 [facility] Comment on above: Performed By: #### Bob GRAJEDA, , CBCA ####[facility] ([id number])[address] [place] [address] 17369 Hemoglobin (Bld) [Mass/Vol] 12.1 g/dL Low 13.0-17.0 [facility] Comment on above: Performed By: #### Bob GRAJEDA, , CBCA ####[facility] ([id number])[address] [place] [address] [place] [address] WINN-JOLLY BODY 1+ Abnormal NONE [facility] Comment on above: Performed By: #### Bob GRAJEDA, , CBCA ####[facility] ([id number])[address] [place] [address] 15885 IMMATURE MONONUCLEAR 1.0 % Normal [facility] Comment on above: Performed By: #### Bob GRAJEDA, , CBCA ####[facility] ([id number])[address] [place] [address] 85866 LYMPHOCYTE, ATYPICAL 1.0 % Normal [facility] Comment on above: Performed By: #### C NICCI, , CBCA ####[facility] ([id number])[address] [place] [address] 81079 Lymphocytes (Bld) [#/Vol] 4.0 10*3/uL High 1.0-3.5 [facility] Comment on above: Performed By: #### C NICCI, , CBCA ####[facility] ([id number])[address] [place] [address] 14459 Lymphocytes/100 WBC (Bld) 89.0 % Normal [facility] Comment on above: Performed By: #### C NICCI, , CBCA ####[facility] ([id number])[address] [place] [address] 15001 MCH (RBC) [Entitic mass] 33.7 pg Normal 27-34 [facility] Comment on above: Performed By: #### C NICCI, , CBCA ####[facility] ([id number])[address] [place] [address] 71144 MCHC (RBC) [Mass/Vol] 34.3 g/dL Normal 32-36 [facility] Comment on above: Performed By: #### C NICCI, , CBCA ####[facility] ([id number])[address] [place] [address] 84597 MCV (RBC) [Entitic vol] 98 fL Normal 80-100 [facility] Comment on above: Performed By: #### C NICCI, , CBCA ####[facility] ([id number])[address] [place] [address] 61471 Monocytes (Bld) [#/Vol] 0.4 10*3/uL Normal 0-0.9 [facility] Comment on above: Performed By: #### C NICCI, , CBCA ####[facility] ([id number])[address] [place] [address] 41808 Monocytes/100 WBC (Bld) 8.0 % Normal [facility] Comment on above: Performed By: #### C NICCI, , CBCA ####[facility] ([id number])[address] [place] [address] 66556 Neutrophils (Bld) [#/Vol] 0.0 10*3/uL Low 1.5-6.6 [facility] Comment on above: Performed By: #### C NICCI, , CBCA ####[facility] ([id number])[address] [place] [address] 42888 NUCLEATED RBC 1.0 /100 WBC Normal 0.0-1.0 [facility] Comment on above: Performed By: #### C NICCI, , CBCA ####[facility] ([id number])[address] [place] [address] 95689 Platelet mean volume (Bld) [Entitic vol] 9.5 fL Normal 7-12 [facility] Comment on above: Performed By: #### C NICCI, , CBCA ####[facility] ([id number])[address] [place] [address] 60892 Platelets (Bld) [#/Vol] 191 10*3/uL Normal 150-450 [facility] Comment on above: Performed By: #### C NICCI, , CBCA ####[facility] ([id number])[address] [place] [address] 95907 RBC COUNT 3.59 X10E12/L Low 4.10-5.70 [facility] Comment on above: Performed By: #### C NICCI, , CBCA ####[facility] ([id number])[address] [place] [address] 81320 SEG NEUTROPHIL 0.0 % Normal [facility] Comment on above: Performed By: #### C NICCI, , CBCA ####[facility] ([id number])[address] [place] [address] 89977 TEARDROP 1+ Abnormal NONE [facility] Comment on above: Performed By: #### C NICCI, , CBCA ####[facility] ([id number])[address] [place] [address] 83159 WBC (Bld) [#/Vol] 4.4 10*3/uL Normal 4.0-11.0 [facility] Comment on above: Performed By: #### C NICCI, , CBCA ####[facility] ([id number])[address] [place] [address] 07154 COMPREHENSIVE METABOLIC PANE Jalen 10-04-2023 Albumin [Mass/Vol] 2.6 g/dL Low 3.2-5.3 [facility] Comment on above: Performed By: #### C NICCI, , CBCA ####[facility] ([id number])[address] [place] [address] 17488 ALP [Catalytic activity/Vol] 72 U/L Normal 39-130 [facility] Comment on above: Performed By: #### C NICCI, , CBCA ####[facility] ([id number])[address] [place] [address] 42603 ALT [Catalytic activity/Vol] 27 U/L Normal 0-40 [facility] Comment on above: Performed By: #### Bob GRAJEDA, , CBCA ####[facility] ([id number])[address] [place] [address], [place] [address] Anion gap [Moles/Vol] 8 mmol/L Normal 5-15 [facility] Comment on above: Performed By: #### C NICCI, , CBCA ####[facility] ([id number])[address] [place] [address], [place] [address] AST [Catalytic activity/Vol] 19 U/L Normal 0-41 [facility] Comment on above: Performed By: #### C NICCI, , CBCA ####[facility] ([id number])[address] [place] [address], [place] [address] Bilirubin [Mass/Vol] 0.5 mg/dL Normal 0.3-1.2 [facility] Comment on above: Performed By: #### C NICCI, , CBCA ####[facility] ([id number])[address] [place] [address], [place] [address] Calcium [Mass/Vol] 8.1 mg/dL Low 8.5-10.5 [facility] Comment on above: Performed By: #### C NICCI, , CBCA ####[facility] ([id number])[address] [place] [address], [place] [address] Chloride [Moles/Vol] 100 mmol/L Normal 98-109 [facility] Comment on above: Performed By: #### C NICCI, , CBCA ####[facility] ([id number])[address] [place] [address], [place] [address] CO2 [Moles/Vol] 24 mmol/L Normal 22-32 [facility] Comment on above: Performed By: #### C NICCI, , CBCA ####[facility] ([id number])[address] [place] [address], [place] [address] Creatinine [Mass/Vol] 0.56 mg/dL Low 0.70-1.20 [facility] Comment on above: Result Comment: METH OD TRACEABLE TO IDMS STANDARD Performed By: #### C NICCI, , CBCA ####[facility] ([id number])[address] [place] [address], [place] [address] eGFR (CKD-EPI) NON-RACE DEPENDENT >90 Normal >59 [facility] Comment on above: Result Comment: Repo rted eGFR is based on theCKD-EPI 2020 equation that doesnot use a race coefficient. Performed By: #### C NICCI, , CBCA ####[facility] ([id number])[address] [place] [address], [place] [address] Glucose [Mass/Vol] 114 mg/dL High 65-99 [facility] Comment on above: Performed By: #### C NICCI, , CBCA ####[facility] ([id number])[address] [place] [address] 62870 Potassium [Moles/Vol] 3.8 mmol/L Normal 3.5-5.0 [facility] Comment on above: Performed By: #### C NICCI, , CBCA ####[facility] ([id number])[address] [place] [address] [place] [address] Protein [Mass/Vol] 5.3 g/dL Low 6.0-8.0 [facility] Comment on above: Performed By: #### C NICCI, , CBCA ####[facility] ([id number])[address] [place] [address] 10133 Sodium [Moles/Vol] 132 mmol/L Low 134-146 [facility] Comment on above: Performed By: #### C NICCI, , CBCA ####[facility] ([id number])[address] [place] [address] [place] [address] Urea nitrogen [Mass/Vol] 9 mg/dL Normal 5-27 [facility] Comment on above: Performed By: #### C NICCI, , CBCA ####[facility] ([id number])[address] [place] [address] 56439 MAGNESIUMon 10-04-2023 Magnesium [Mass/Vol] 2.4 mg/dL Normal 1.8-2.6 [facility] Comment on above: Performed By: #### 2 823-3, ####[facility] ([id number])[address] [place] [address] 02078 Magnesium [Mass/Vol] 1.4 mg/dL Low 1.8-2.6 [facility] Comment on above: Performed By: #### C NICCI, , CBCA ####[facility] ([id number])[address] [place] [address] 10609 POTASSIUMon 10-04-2023 Potassium [Moles/Vol] 3.9 mmol/L Normal 3.5-5.0 [facility] Comment on above: Performed By: #### 2 823-3, ####[facility] ([id number])[address] [place] [address] 30615 CBC AND AUTO DIFFon 10-03-19 24 Eosinophils (Bld) [#/Vol] 0.0 10*3/uL Normal 0.0-0.4 [facility] Comment on above: Performed By: #### C NICCI, , CBCA ####[facility] ([id number])[address] [place] [address] 61454 Eosinophils/100 WBC (Bld) 1.0 % Normal [facility] Comment on above: Performed By: #### C NICCI, , CBCA ####[facility] ([id number])[address] [place] [address] [place] [address] Erythrocyte distribution width (RBC) [Ratio] 20.6 % High 11.5-15.0 [facility] Comment on above: Performed By: #### C NICCI, , CBCA ####[facility] ([id number])[address] [place] [address] 20786 Hematocrit (Bld) [Volume fraction] 37.1 % Low 39-49 [facility] Comment on above: Performed By: #### C NICCI, , CBCA ####[facility] ([id number])[address] [place] [address] 04261 Hemoglobin (Bld) [Mass/Vol] 13.0 g/dL Normal 13.0-17.0 [facility] Comment on above: Performed By: #### Bob GRAJEDA, , CBCA ####[facility] ([id number])[address] [place] [address] [place] [address] WINN-JOLLY BODY 1+ Abnormal NONE [facility] Comment on above: Performed By: #### Bob GRAJEDA, , CBCA ####[facility] ([id number])[address] [place] [address] 04116 LYMPHOCYTE, ATYPICAL 1.0 % Normal [facility] Comment on above: Performed By: #### Bob GRAJEDA, , CBCA ####[facility] ([id number])[address] [place] [address] 02120 Lymphocytes (Bld) [#/Vol] 3.9 10*3/uL High 1.0-3.5 [facility] Comment on above: Performed By: #### Bob GRAJEDA, , CBCA ####[facility] ([id number])[address] [place] [address] 42171 Lymphocytes/100 WBC (Bld) 94.0 % Normal [facility] Comment on above: Performed By: #### C NICCI, , CBCA ####[facility] ([id number])[address] [place] [address] 40816 MCH (RBC) [Entitic mass] 33.6 pg Normal 27-34 [facility] Comment on above: Performed By: #### Bob GRAJEDA, , CBCA ####[facility] ([id number])[address] [place] [address] 65077 MCHC (RBC) [Mass/Vol] 34.9 g/dL Normal 32-36 [facility] Comment on above: Performed By: #### C NICCI, , CBCA ####[facility] ([id number])[address] [place] [address] 72684 MCV (RBC) [Entitic vol] 96 fL Normal 80-100 [facility] Comment on above: Performed By: #### Bob GRAJEDA, , CBCA ####[facility] ([id number])[address] [place] [address] 99388 Monocytes (Bld) [#/Vol] 0.1 10*3/uL Normal 0-0.9 [facility] Comment on above: Performed By: #### Bob GRAJEDA, , CBCA ####[facility] ([id number])[address] [place] [address] 13181 Monocytes/100 WBC (Bld) 2.0 % Normal [facility] Comment on above: Performed By: #### Bob GRAJEDA, , CBCA ####[facility] ([id number])[address] [place] [address] 90742 Neutrophils (Bld) [#/Vol] 0.1 10*3/uL Low 1.5-6.6 [facility] Comment on above: Performed By: #### Bob GRAJEDA, , CBCA ####[facility] ([id number])[address] [place] [address] 71906 NUCLEATED RBC 2.0 /100 WBC High 0.0-1.0 [facility] Comment on above: Performed By: #### C NICCI, , CBCA ####[facility] ([id number])[address] [place] [address] 71980 Platelet mean volume (Bld) [Entitic vol] 9.9 fL Normal 7-12 [facility] Comment on above: Performed By: #### C NICCI, , CBCA ####[facility] ([id number])[address] [place] [address] 81775 Platelets (Bld) [#/Vol] 187 10*3/uL Normal 150-450 [facility] Comment on above: Performed By: #### C NICCI, , CBCA ####[facility] ([id number])[address] [place] [address] 66984 RBC COUNT 3.86 X10E12/L Low 4.10-5.70 [facility] Comment on above: Performed By: #### C NICCI, , CBCA ####[facility] ([id number])[address] [place] [address] 37376 RBC morphology finding Nom (Bld) REVIEWED Normal [facility] Comment on above: Performed By: #### C NICCI, , CBCA ####[facility] ([id number])[address] [place] [address] 55879 SEG NEUTROPHIL 2.0 % Normal [facility] Comment on above: Performed By: #### C NICCI, , CBCA ####[facility] ([id number])[address] [place] [address] 02171 WBC (Bld) [#/Vol] 4.1 10*3/uL Normal 4.0-11.0 [facility] Comment on above: Performed By: #### C NICCI, , CBCA ####[facility] ([id number])[address] [place] [address] 71740 COMPREHENSIVE METABOLIC PANE Jalen 10-03-2023 Albumin [Mass/Vol] 2.7 g/dL Low 3.2-5.3 [facility] Comment on above: Performed By: #### C NICCI, , CBCA ####[facility] ([id number])[address] [place] [address] 19258 ALP [Catalytic activity/Vol] 73 U/L Normal 39-130 [facility] Comment on above: Performed By: #### Bob GRAJEDA, , CBCA ####[facility] ([id number])[address] [place] [address] 33076 ALT [Catalytic activity/Vol] 32 U/L Normal 0-40 [facility] Comment on above: Performed By: #### Bob GRAJEDA, , CBCA ####[facility] ([id number])[address] [place] [address] 13257 Anion gap [Moles/Vol] 7 mmol/L Normal 5-15 [facility] Comment on above: Performed By: #### Bob GRAJEDA, , CBCA ####[facility] ([id number])[address] [place] [address] 40351 AST [Catalytic activity/Vol] 25 U/L Normal 0-41 [facility] Comment on above: Performed By: #### C NICCI, , CBCA ####[facility] ([id number])[address] [place] [address] 84848 Bilirubin [Mass/Vol] 0.5 mg/dL Normal 0.3-1.2 [facility] Comment on above: Performed By: #### C NICCI, , CBCA ####[facility] ([id number])[address] [place] [address] 41699 Calcium [Mass/Vol] 8.3 mg/dL Low 8.5-10.5 [facility] Comment on above: Performed By: #### C NICCI, , CBCA ####[facility] ([id number])[address] [place] [address] 67800 Chloride [Moles/Vol] 99 mmol/L Normal 98-109 [facility] Comment on above: Performed By: #### C NICCI, , CBCA ####[facility] ([id number])[address] [place] [address] 23396 CO2 [Moles/Vol] 26 mmol/L Normal 22-32 [facility] Comment on above: Performed By: #### Bob GRAJEDA, , CBCA ####[facility] ([id number])[address] [place] [address] 37609 Creatinine [Mass/Vol] 0.59 mg/dL Low 0.70-1.20 [facility] Comment on above: Result Comment: METH OD TRACEABLE TO IDMS STANDARD Performed By: #### C NICCI, , CBCA ####[facility] ([id number])[address] [place] [address] [place] [address] eGFR (CKD-EPI) NON-RACE DEPENDENT >90 Normal >59 [facility] Comment on above: Result Comment: Repo rted eGFR is based on theCKD-EPI 2020 equation that doesnot use a race coefficient. Performed By: #### C NICCI, , CBCA ####[facility] ([id number])[address] [place] [address] 03634 Glucose [Mass/Vol] 122 mg/dL High 65-99 [facility] Comment on above: Performed By: #### C NICCI, , CBCA ####[facility] ([id number])[address] [place] [address] 77553 Potassium [Moles/Vol] 3.0 mmol/L Low 3.5-5.0 [facility] Comment on above: Performed By: #### Bob GRAJEDA, , CBCA ####[facility] ([id number])[address] [place] [address] 76651 Protein [Mass/Vol] 5.3 g/dL Low 6.0-8.0 [facility] Comment on above: Performed By: #### C NICCI, , CBCA ####[facility] ([id number])[address] [place] [address] 61142 Sodium [Moles/Vol] 132 mmol/L Low 134-146 [facility] Comment on above: Performed By: #### Bob GRAJEDA, , CBCA ####[facility] ([id number])[address] [place] [address] 31070 Urea nitrogen [Mass/Vol] 12 mg/dL Normal 5-27 [facility] Comment on above: Performed By: #### Bob GRAJEDA, , CBCA ####[facility] ([id number])[address] [place] [address] 12608 MAGNESIUMon 10-03-2023 Magnesium [Mass/Vol] 1.9 mg/dL Normal 1.8-2.6 [facility] Comment on above: Performed By: #### Bob GRAJEDA, , CBCA ####[facility] ([id number])[address] [place] [address] 77490 POTASSIUMon 10-03-2023 Potassium [Moles/Vol] 3.8 mmol/L Normal 3.5-5.0 [facility] Comment on above: Performed By: #### 2 823-3 ####[facility] ([id number])[address] [place] [address] 78765 Potassium [Moles/Vol] 3.5 mmol/L Normal 3.5-5.0 [facility] Comment on above: Performed By: #### 2 823-3 ####[facility] ([id number])[address] [place] [address] 14159 Potassium [Moles/Vol] 3.4 mmol/L Low 3.5-5.0 [facility] Comment on above: Performed By: #### 2 823-3 ####[facility] ([id number])[address] [place] [address] 72269 URINE CULTUREon 10-03-2023 Bacteria identified Cx Nom (U) CULTURE RESULTS 10-50,000 ORGANISMS/mL NORMAL UROGENITAL NUNU Normal [facility] Comment on above: Performed By: #### 6 30-4 ####[facility] ([id number])[address], [address] [place] [address] 01639 BLOOD CULTUREon 10-02-2023 Bacteria identified Aer cx Nom (Bld) SPECIMEN NOTES SUBOPTIMAL VOLUME OF BLOOD COLLECTED, RESULTS MAY BE AFFECTED. CULTURE RESULTS NO GROWTH 5 DAYS Normal [facility] Comment on above: Performed By: #### 1 7928-3 ####[facility] ([id number])[address], [address], [place] [address] Bacteria identified Aer cx Nom (Bld) CULTURE RESULTS NO GROWTH 5 DAYS Normal [facility] CBC AND AUTO DIFFon 10-02-19 24 JENY 1+ Abnormal NONE [facility] Comment on above: Performed By: #### C BCA, CMP, 28120-0, 63006-0, 04690-5 ####[facility] ([id number])[address] [place] [address] 22329 Erythrocyte distribution width (RBC) [Ratio] 21.0 % High 11.5-15.0 [facility] Comment on above: Performed By: #### C TALISHA, CMP, 51018-7, 32775-8, 10159-3 ####[facility] ([id number])[address] [place] [address] 81612 FRAGMENT 1+ Abnormal NONE [facility] Comment on above: Performed By: #### C BCA, CMP, 09842-0, , 84081-6 ####[facility] ([id number])[address] [place] [address] 09565 Hematocrit (Bld) [Volume fraction] 43.4 % Normal 39-49 [facility] Comment on above: Performed By: #### Bbo WOODALL, CMP, 21745-0, , 63478-5 ####[facility] ([id number])[address] [place] [address] 24757 Hemoglobin (Bld) [Mass/Vol] 14.8 g/dL Normal 13.0-17.0 [facility] Comment on above: Performed By: #### C BCA, CMP, 67402-0, , 70933-7 ####[facility] ([id number])[address] [place] [address] 84629 LYMPHOCYTE, ATYPICAL 14.0 % Normal [facility] Comment on above: Performed By: #### C BCA, CMP, 03358-9, , 83461-5 ####[facility] ([id number])[address] [place] [address] 05585 Lymphocytes (Bld) [#/Vol] 4.6 10*3/uL High 1.0-3.5 [facility] Comment on above: Performed By: #### C BCA, CMP, 68658-1, , 10916-0 ####[facility] ([id number])[address] [place] [address] 84695 Lymphocytes/100 WBC (Bld) 84.0 % Normal [facility] Comment on above: Performed By: #### C BCA, CMP, 95019-7, 81016-6, 29813-1 ####[facility] ([id number])[address] [place] [address] 19823 MCH (RBC) [Entitic mass] 33.5 pg Normal 27-34 [facility] Comment on above: Performed By: #### C BCA, CMP, 82246-0, , 98082-2 ####[facility] ([id number])[address] [place] [address] 20215 MCHC (RBC) [Mass/Vol] 34.1 g/dL Normal 32-36 [facility] Comment on above: Performed By: #### C BCA, CMP, 58199-3, , 01601-0 ####[facility] ([id number])[address] [place] [address] 48721 MCV (RBC) [Entitic vol] 98 fL Normal 80-100 [facility] Comment on above: Performed By: #### Bob BCA, CMP, 73406-2, , 95614-4 ####[facility] ([id number])[address] [place] [address] 12699 Monocytes (Bld) [#/Vol] 0.0 10*3/uL Normal 0-0.9 [facility] Comment on above: Performed By: #### C BCA, CMP, 11181-1, , 30438-9 ####[facility] ([id number])[address] [place] [address] 89622 Monocytes/100 WBC (Bld) 1.0 % Normal [facility] Comment on above: Performed By: #### C BCA, CMP, 06102-1, 37784-8, 34624-4 ####[facility] ([id number])[address] [place] [address] 05437 Neutrophils (Bld) [#/Vol] 0.0 10*3/uL Low 1.5-6.6 [facility] Comment on above: Performed By: #### Bob BCA, CMP, 76003-8, , 94669-5 ####[facility] ([id number])[address] [place] [address] 72591 NUCLEATED RBC 4.0 /100 WBC High 0.0-1.0 [facility] Comment on above: Performed By: #### Bob WOODALL, CMP, 42720-4, , 31747-6 ####[facility] ([id number])[address] [place] [address] 53254 Platelet mean volume (Bld) [Entitic vol] 10.1 fL Normal 7-12 [facility] Comment on above: Performed By: #### Bob WOODALL, CMP, 64430-9, , 51858-1 ####[facility] ([id number])[address] [place] [address] 49021 Platelets (Bld) [#/Vol] 197 10*3/uL Normal 150-450 [facility] Comment on above: Performed By: #### Bob BCA, CMP, 30421-2, , 33798-2 ####[facility] ([id number])[address] [place] [address] 18359 RBC COUNT 4.42 X10E12/L Normal 4.10-5.70 [facility] Comment on above: Performed By: #### Bob BCA, CMP, 89069-8, , 08513-4 ####[facility] ([id number])[address] [place] [address] 09894 SEG NEUTROPHIL 1.0 % Normal [facility] Comment on above: Performed By: #### C BCA, CMP, 23034-4, 91011-0, 90998-1 ####[facility] ([id number])[address] [place] [address] 26011 WBC (Bld) [#/Vol] 4.7 10*3/uL Normal 4.0-11.0 [facility] Comment on above: Performed By: #### C BCA, CMP, 96359-2, 43403-1, 98331-0 ####[facility] ([id number])[address] [place] [address] 14937 COMPREHENSIVE METABOLIC PANE Jalen 10-02-2023 Albumin [Mass/Vol] 3.2 g/dL Normal 3.2-5.3 [facility] Comment on above: Performed By: #### C BCA, CMP, 89461-7, 21262-8, 33872-4 ####[facility] ([id number])[address] [place] [address] 31528 ALP [Catalytic activity/Vol] 87 U/L Normal 39-130 [facility] Comment on above: Performed By: #### C BCA, CMP, 73329-1, 26809-1, 56644-3 ####[facility] ([id number])[address] [place] [address] 09604 ALT [Catalytic activity/Vol] 41 U/L High 0-40 [facility] Comment on above: Performed By: #### C BCA, CMP, 76110-4, 58758-2, 86089-0 ####[facility] ([id number])[address] [place] [address] 56254 Anion gap [Moles/Vol] 6 mmol/L Normal 5-15 [facility] Comment on above: Performed By: #### C BCA, CMP, 78316-3, , 88204-2 ####[facility] ([id number])[address] [place] [address] 41246 AST [Catalytic activity/Vol] 33 U/L Normal 0-41 [facility] Comment on above: Performed By: #### C BCA, CMP, 73730-3, , 04103-3 ####[facility] ([id number])[address] [place] [address] 55484 Bilirubin [Mass/Vol] 0.6 mg/dL Normal 0.3-1.2 [facility] Comment on above: Performed By: #### C BCA, CMP, 83162-4, , 18120-3 ####[facility] ([id number])[address] [place] [address] 81013 Calcium [Mass/Vol] 8.9 mg/dL Normal 8.5-10.5 [facility] Comment on above: Performed By: #### C BCA, CMP, 81961-7, , 12438-5 ####[facility] ([id number])[address] [place] [address] 09191 Chloride [Moles/Vol] 99 mmol/L Normal 98-109 [facility] Comment on above: Performed By: #### C BCA, CMP, 66026-0, , 47799-7 ####[facility] ([id number])[address] [place] [address] 70771 CO2 [Moles/Vol] 25 mmol/L Normal 22-32 [facility] Comment on above: Performed By: #### C BCA, CMP, 98398-9, , 09483-2 ####[facility] ([id number])[address] [place] [address] 76743 Creatinine [Mass/Vol] 0.79 mg/dL Normal 0.70-1.20 [facility] Comment on above: Result Comment: METH OD TRACEABLE TO IDMS STANDARD Performed By: #### C MAGALI WOODALL, 43120-1, 09890-6, 70084-4 ####[facility] ([id number])[address] [place] [address] 44233 eGFR (CKD-EPI) NON-RACE DEPENDENT >90 Normal >59 [facility] Comment on above: Result Comment: Repo rted eGFR is based on theCKD-EPI 2020 equation that doesnot use a race coefficient. Performed By: #### C MAGALI WOODALL, 22986-3, , 08778-5 ####[facility] ([id number])[address] [place] [address] 34695 Glucose [Mass/Vol] 172 mg/dL High 65-99 [facility] Comment on above: Performed By: #### C MAGALI WOODALL, 48169-6, , 47400-5 ####[facility] ([id number])[address] [place] [address] 20746 Potassium [Moles/Vol] 3.4 mmol/L Low 3.5-5.0 [facility] Comment on above: Performed By: #### C MAGALI WOODALL, 97278-2, 62779-7, 26009-3 ####[facility] ([id number])[address] [place] [address] 27978 Protein [Mass/Vol] 6.8 g/dL Normal 6.0-8.0 [facility] Comment on above: Performed By: #### C MAGALI WOODALL, 10997-3, 19861-2, 27686-6 ####[facility] ([id number])[address] [place] [address] 18585 Sodium [Moles/Vol] 130 mmol/L Low 134-146 [facility] Comment on above: Performed By: #### C BCA, CMP, 28390-4, 80129-1, 63521-1 ####[facility] ([id number])[address] [place] [address] 99018 Urea nitrogen [Mass/Vol] 13 mg/dL Normal 5-27 [facility] Comment on above: Performed By: #### C BCA, CMP, 58101-2, 36270-4, 45695-0 ####[facility] ([id number])[address] [place] [address] 17459 GI PANELon 10-02-2023 Gastrointestinal pathogens DNA and RNA panel DENIS+non-probe (Stl) Normal NDET [facility] Comment on above: Performed By: #### 8 2195-9 ####[facility] ([id number])[address] [place] [address] [facility] ([id number])[address] [facility], [address], [place] [address] Lactate (P herminio) [Moles/Vol]o n 10-02-2023 Lactate [Moles/Vol] 2.0 mmol/L Normal 0.4-2.0 [facility] Comment on above: Performed By: #### 3 2133-1 ####[facility] ([id number])[address] [place] [address] 20783 LACTATE W/REFLEX 3.3 mmol/L High 0.4-2.0 [facility] Comment on above: Performed By: #### C BCA, CMP, 71573-6, 69489-4, 53462-9 ####[facility] ([id number])[address] [place] [address] 74992 MAGNESIUMon 10-02-2023 Magnesium [Mass/Vol] 1.7 mg/dL Low 1.8-2.6 [facility] Comment on above: Performed By: #### C BCA, CMP, 96270-3, 96502-3, 38673-5 ####[facility] ([id number])[address] [place] [address] 15446 Troponin I.cardiac High sens itivity method [Mass/Vol]on 10-02-2023 1 HOUR TROP I, HIGH SENSITIVITY 26 ng/L High <21 [facility] Comment on above: Result Comment: Elev ations of hs-Troponin may be due to causesother than myocardial ischemia.Recommend serial hs-Troponin testing be performed.For the initial evaluation and management of chestpain patients, refer to the algorithms linked below.Emergency Patient:[email or web address]:[email or web address] Performed By: #### 8 9579-7 ####[facility] ([id number])[address] [place] [address] 60379 TROPONIN I, HIGH SENSITIVITY 30 ng/L High <21 [facility] Comment on above: Result Comment: Elev ations of hs-Troponin may be due to causesother than myocardial ischemia.Recommend serial hs-Troponin testing be performed.For the initial evaluation and management of chestpain patients, refer to the algorithms linked below.Emergency Patient:[email or web address]:[email or web address] Performed By: #### C BCA, CMP, 36767-1, 95825-3, 66977-9 ####[facility] ([id number])[address] [place] [address] 82312 XR CHEST 1 VWon 10-02-2023 XR CHEST 1 VW Normal [facility] CBC AND AUTO DIFFon 09-29-19 24 JENY 1+ Abnormal NONE [facility] Comment on above: Performed By: #### Bob WOODALL CMP, 3084-1 ####[facility] ([id number])[address] [place] [address] 24161#### 78095-7 ####[facility] ([id number])[address], [address] [place] [address] 90258 Erythrocyte distribution width (RBC) [Ratio] 21.6 % High 11.5-15.0 [facility] Comment on above: Performed By: #### Bob WOODALL CMP, 3084-1 ####[facility] ([id number])[address] [place] [address] 71183#### 63493-6 ####[facility] ([id number])[address], [address] [place] [address] 39596 Hematocrit (Bld) [Volume fraction] 42.1 % Normal 39-49 [facility] Comment on above: Performed By: #### Bob WOODALL CMP, 3084-1 ####[facility] ([id number])[address] [place] [address] 42586#### 08548-5 ####[facility] ([id number])[address], [address] [place] [address] 42273 Hemoglobin (Bld) [Mass/Vol] 14.5 g/dL Normal 13.0-17.0 [facility] Comment on above: Performed By: #### Bob WOODALL CMP, 3084-1 ####[facility] ([id number])[address] [place] [address] 71741#### 14742-3 ####[facility] ([id number])[address], [address] [place] [address] LYMPHOCYTE, ATYPICAL 10.6 % Normal [facility] Comment on above: Performed By: #### C BCA, CMP, 3084-1 ####[facility] ([id number])[address] [place] [address] 07168#### 07489-5 ####[facility] ([id number])[address], [address] [place] [address] 72133 Lymphocytes (Bld) [#/Vol] 10.6 10*3/uL High 1.0-3.5 [facility] Comment on above: Performed By: #### Bob BCA, CMP, 3083- ####[facility] ([id number])[address] [place] [address] 15906#### 13884-2 ####[facility] ([id number])[address], [address] [place] [address] 81442 Lymphocytes/100 WBC (Bld) 48.1 % Normal [facility] Comment on above: Performed By: #### Bob WOODALL, CMP, 3084- ####[facility] ([id number])[address] [place] [address] 60391#### 73729-3 ####[facility] ([id number])[address], [address] [place] [address] 16858 MCH (RBC) [Entitic mass] 33.5 pg Normal 27-34 [facility] Comment on above: Performed By: #### C BCA, CMP, 308- ####[facility] ([id number])[address] [place] [address] 36209#### 19384-5 ####[facility] ([id number])[address], [address], [place] [address] MCHC (RBC) [Mass/Vol] 34.4 g/dL Normal 32-36 [facility] Comment on above: Performed By: #### C BCA, CMP, 3084-1 ####[facility] ([id number])[address] [place] [address] 32343#### 88249-1 ####[facility] ([id number])[address], [address], [place] [address] MCV (RBC) [Entitic vol] 97 fL Normal 80-100 [facility] Comment on above: Performed By: #### C BCA, CMP, 3084-1 ####[facility] ([id number])[address] [place] [address] 35420#### 90879-3 ####[facility] ([id number])[address], [address], [place] [address] Monocytes (Bld) [#/Vol] 0.7 10*3/uL Normal 0-0.9 [facility] Comment on above: Performed By: #### Bob BCA, CMP, 3084-1 ####[facility] ([id number])[address] [place] [address] 07812#### 35724-6 ####[facility] ([id number])[address], [place] [address] Monocytes/100 WBC (Bld) 3.8 % Normal [facility] Comment on above: Performed By: #### Bob BCA, CMP, 3084- ####[facility] ([id number])[address] [place] [address] 42488#### 16593-4 ####[facility] ([id number])[address], [address] [place] [address] Neutrophils (Bld) [#/Vol] 6.8 10*3/uL High 1.5-6.6 [facility] Comment on above: Performed By: #### C BCA, CMP, 3084-1 ####[facility] ([id number])[address] [place] [address] 83472#### 70090-6 ####[facility] ([id number])[address], [place] [address] Platelet mean volume (Bld) [Entitic vol] 10.7 fL Normal 7-12 [facility] Comment on above: Performed By: #### C BCA, CMP, 3084-1 ####[facility] ([id number])[address] [place] [address] 48684#### 71341-6 ####[facility] ([id number])[address], [place] [address] Platelets (Bld) [#/Vol] 203 10*3/uL Normal 150-450 [facility] Comment on above: Performed By: #### Bob BCA, CMP, 4-1 ####[facility] ([id number])[address] [place] [address] 10574#### 02213-7 ####[facility] ([id number])[address], [place] [address] RBC COUNT 4.33 X10E12/L Normal 4.10-5.70 [facility] Comment on above: Performed By: #### C BCA, CMP, 3084-1 ####[facility] ([id number])[address] [place] [address] 58149#### 65714-1 ####[facility] ([id number])[address], [place] [address] SEG NEUTROPHIL 37.5 % Normal [facility] Comment on above: Performed By: #### C BCA, CMP, 4-1 ####[facility] ([id number])[address] [place] [address] 95450#### 32157-7 ####[facility] ([id number])[address] [facility], [address] [place] [address] 51592 STOMATOCYTE 1+ Abnormal NONE [facility] Comment on above: Performed By: #### C BCA, CMP, 4-1 ####[facility] ([id number])[address] [place] [address] 44488#### 58168-4 ####[facility] ([id number])[address] [place] [address], [address] [place] [address] 93494 WBC (Bld) [#/Vol] 18.0 10*3/uL High 4.0-11.0 [facility] Comment on above: Performed By: #### C BCA, CMP, 3083- ####[facility] ([id number])[address] [place] [address] 64539#### 07413-9 ####[facility] ([id number])[address] [place] [address], [address] [place] [address] 86177 COMPREHENSIVE METABOLIC PANE Jalen 09-29-2023 Albumin [Mass/Vol] 3.3 g/dL Normal 3.2-5.3 [facility] Comment on above: Performed By: #### C BCA, CMP, 3083- ####[facility] ([id number])[address] [place] [address] 53618#### 08300-0 ####[facility] ([id number])[facility]ly [facility], [address] [place] [address] 46920 ALP [Catalytic activity/Vol] 68 U/L Normal 39-130 [facility] Comment on above: Performed By: #### C BCA, CMP, 3083-1 ####[facility] ([id number])[address] [place] [address] 85512#### 58534-4 ####[facility] ([id number])[address] [facility], [address], [place] [address] ALT [Catalytic activity/Vol] 68 U/L High 0-40 [facility] Comment on above: Performed By: #### Bob WOODALL CMP, 3084-1 ####[facility] ([id number])[address] [place] [address] 11004#### 57772-8 ####[facility] ([id number])[address] [facility], [address], [place] [address] Anion gap [Moles/Vol] 12 mmol/L Normal 5-15 [facility] Comment on above: Performed By: #### Bob BCA, CMP, 4-1 ####[facility] ([id number])[address] [place] [address]55#### 32620-1 ####[facility] ([id number])[address] [facility], [address], [place] [address] AST [Catalytic activity/Vol] 91 U/L High 0-41 [facility] Comment on above: Performed By: #### Bob BCA, CMP, 3084-1 ####[facility] ([id number])[address] [place] [address] 98026#### 11094-9 ####[facility] ([id number])[address] [facility], [address] [place] [address] Bilirubin [Mass/Vol] 0.8 mg/dL Normal 0.3-1.2 [facility] Comment on above: Performed By: #### Bob BCA, CMP, 4-1 ####[facility] ([id number])[address] [place] [address] 73171#### 55951-7 ####[facility] ([id number])[address], [address] [place] [address] Calcium [Mass/Vol] 8.9 mg/dL Normal 8.5-10.5 [facility] Comment on above: Performed By: #### C BCA, CMP, 3084-1 ####[facility] ([id number])[address] [place] [address] 45846#### 62430-4 ####[facility] ([id number])[address], [place] [address] Chloride [Moles/Vol] 104 mmol/L Normal 98-109 [facility] Comment on above: Performed By: #### C BCA, CMP, 3084-1 ####[facility] ([id number])[address] [place] [address] 96442#### 50101-1 ####[facility] ([id number])[address], [place] [address] CO2 [Moles/Vol] 19 mmol/L Low 22-32 [facility] Comment on above: Performed By: #### C BCA, CMP, 3084-1 ####[facility] ([id number])[address] [place] [address] 69759#### 73658-0 ####[facility] ([id number])[address], [address] [place] [address] Creatinine [Mass/Vol] 0.68 mg/dL Low 0.70-1.20 [facility] Comment on above: Result Comment: METH OD TRACEABLE TO IDMS STANDARD Performed By: #### C BCA, CMP, 3084-1 ####[facility] ([id number])[address] [place] [address] 0[address]#### 74697-8 ####[facility] ([id number])[address], [place] [address] eGFR (CKD-EPI) NON-RACE DEPENDENT >90 Normal >59 [facility] Comment on above: Result Comment: Repo rted eGFR is based on theCKD-EPI 2020 equation that doesnot use a race coefficient. Performed By: #### C TALISHA CMP, 3084-1 ####[facility] ([id number])[address] [place] [address] 12646#### 00199-1 ####[facility] ([id number])[address], [address] [place] [address] 93198 Glucose [Mass/Vol] 134 mg/dL High 65-99 [facility] Comment on above: Performed By: #### C TALISHA CMP, 3084-1 ####[facility] ([id number])[address] [place] [address] 55962#### 99194-9 ####[facility] ([id number])[address], [address] [place] [address] 20817 Potassium [Moles/Vol] 4.0 mmol/L Normal 3.5-5.0 [facility] Comment on above: Performed By: #### C TALISHA CMP, 3084-1 ####[facility] ([id number])[address] [place] [address] 20077#### 75371-5 ####[facility] ([id number])[address] [address] [place] [address] 07834 Protein [Mass/Vol] 6.4 g/dL Normal 6.0-8.0 [facility] Comment on above: Performed By: #### C BCA CMP, 3083-1 ####[facility] ([id number])[address] [place] [address] 72689#### 76254-0 ####[facility] ([id number])[address], [address] [place] [address] 38904 Sodium [Moles/Vol] 135 mmol/L Normal 134-146 [facility] Comment on above: Performed By: #### C BCA, CMP, 3084-1 ####[facility] ([id number])[address] [place] [address] 14130#### 55781-2 ####[facility] ([id number])[address], [address] [place] [address] 70414 Urea nitrogen [Mass/Vol] 15 mg/dL Normal 5-27 [facility] Comment on above: Performed By: #### C BCA, CMP, 3084-1 ####[facility] ([id number])[address] [place] [address] 80683#### 11714-4 ####[facility] ([id number])[address], [address] [place] [address] 31608 ESR Photometric method (Bld) [Velocity]on 09-29-2023 ESR, ERYTHROCYTE SEDIMENTATION RATE 20 mm/h Normal 0-20 [facility] Comment on above: Performed By: #### C BCA, CMP, 3084-1 ####[facility] ([id number])[address] [place] [address] 11919#### 25156-0 ####[facility] ([id number])[address], [address] [place] [address] 76405 URIC ACIDon 09-29-2023 Urate [Mass/Vol] 4.2 mg/dL Normal 2.6-7.2 [facility] Comment on above: Performed By: #### C BCA, CMP, 3084-1 ####[facility] ([id number])[address] [place] [address] 82810#### 58752-7 ####[facility] ([id number])[address], [address] [place] [address] 28604 CBC AND AUTO DIFFon 09-22-19 24 JENY 1+ Abnormal NONE [facility] Comment on above: Performed By: #### C TALISHA, CMP, 3084-1 ####[facility] ([id number])[address] [place] [address] 36850#### 49890-1 ####[facility] ([id number])[address], [address] [place] [address] 99886 Erythrocyte distribution width (RBC) [Ratio] 23.4 % High 11.5-15.0 [facility] Comment on above: Performed By: #### C TALISHA, CMP, 3084-1 ####[facility] ([id number])[address] [place] [address] 67838#### 06388-0 ####[facility] ([id number])[address], [address] [place] [address] 44897 FRAGMENT 1+ Abnormal NONE [facility] Comment on above: Performed By: #### Bob BCA, CMP, 3084-1 ####[facility] ([id number])[address] [place] [address] 57567#### 34733-8 ####[facility] ([id number])[address], [address] [place] [address] 12838 Hematocrit (Bld) [Volume fraction] 39.4 % Normal 39-49 [facility] Comment on above: Performed By: #### Bob BCA, CMP, 3084-1 ####[facility] ([id number])[address] [place] [address] 90956#### 50671-5 ####[facility] ([id number])[address], [address] [place] [address] Hemoglobin (Bld) [Mass/Vol] 13.4 g/dL Normal 13.0-17.0 [facility] Comment on above: Performed By: #### Bob WOODALL CMP, 3084-1 ####[facility] ([id number])[address] [place] [address] 04476#### 84624-4 ####[facility] ([id number])[address], [address] [place] [address] LYMPHOCYTE, ATYPICAL 18.0 % Normal [facility] Comment on above: Performed By: #### Bob WOODALL CMP, 3084-1 ####[facility] ([id number])[address] [place] [address] 76258#### 01792-0 ####[facility] ([id number])[address], [address], [place] [address] Lymphocytes (Bld) [#/Vol] 11.2 10*3/uL High 1.0-3.5 [facility] Comment on above: Performed By: #### Bob WOODALL CMP, 3083- ####[facility] ([id number])[address] [place] [address] 75452#### 84602-2 ####[facility] ([id number])[address], [address] [place] [address] Lymphocytes/100 WBC (Bld) 50.0 % Normal [facility] Comment on above: Performed By: #### Bob WOODALL CMP, 3083- ####[facility] ([id number])[address] [place] [address] 74989#### 65612-1 ####[facility] ([id number])[address], [address] [place] [address] MCH (RBC) [Entitic mass] 33.4 pg Normal 27-34 [facility] Comment on above: Performed By: #### Bob WOODALL CMP, 3084-1 ####[facility] ([id number])[address] [place] [address] 89075#### 24700-6 ####[facility] ([id number])[address], [address], [place] [address] MCHC (RBC) [Mass/Vol] 33.9 g/dL Normal 32-36 [facility] Comment on above: Performed By: #### Bob WOODALL CMP, 3084-1 ####[facility] ([id number])[address] [place] [address] 60969#### 57800-2 ####[facility] ([id number])[address], [address] [place] [address] 01569 MCV (RBC) [Entitic vol] 98 fL Normal 80-100 [facility] Comment on above: Performed By: #### Bob WOODALL CMP, 3084-1 ####[facility] ([id number])[address] [place] [address] 62204#### 34454-0 ####[facility] ([id number])[address], [address] [place] [address] 42658 Monocytes (Bld) [#/Vol] 2.1 10*3/uL High 0-0.9 [facility] Comment on above: Performed By: #### Bob WOODALL, CMP, 3084- ####[facility] ([id number])[address] [place] [address] 03077#### 79574-0 ####[facility] ([id number])[address], [address], [place] [address] Monocytes/100 WBC (Bld) 13.0 % Normal [facility] Comment on above: Performed By: #### Bob BCA, CMP, 3084-1 ####[facility] ([id number])[address] [place] [address] 78921#### 13166-0 ####[facility] ([id number])[address], [address], [place] [address] Neutrophils (Bld) [#/Vol] 3.1 10*3/uL Normal 1.5-6.6 [facility] Comment on above: Performed By: #### Bob BCA, CMP, 3084-1 ####[facility] ([id number])[address] [place], [place] [address]#### 41098-2 ####[facility] ([id number])[address], [address] [place] [address] 63387 NUCLEATED RBC 9.0 /100 WBC High 0.0-1.0 [facility] Comment on above: Performed By: #### Bob WOODALL, CMP, 3084-1 ####[facility] ([id number])[address] [place] [address] 05863#### 68347-3 ####[facility] ([id number])[address], [address], [place] [address] Platelet mean volume (Bld) [Entitic vol] 9.4 fL Normal 7-12 [facility] Comment on above: Performed By: #### Bob BCA, CMP, 3084-1 ####[facility] ([id number])[address] [place] [address] 99961#### 55465-5 ####[facility] ([id number])[address], [address] [place] [address] Platelets (Bld) [#/Vol] 293 10*3/uL Normal 150-450 [facility] Comment on above: Performed By: #### C BCA, CMP, 3084-1 ####[facility] ([id number])[address] [place] [address] 72882#### 42678-2 ####[facility] ([id number])[address], [address], [place] [address] RBC COUNT 4.00 X10E12/L Low 4.10-5.70 [facility] Comment on above: Performed By: #### C BCA, CMP, 3084-1 ####[facility] ([id number])[address] [place] [address] 12586#### 50972-9 ####[facility] ([id number])[address], [address], [place] [address] SEG NEUTROPHIL 19.0 % Normal [facility] Comment on above: Performed By: #### C BCA, CMP, 3084-1 ####[facility] ([id number])[address] [place] [address] 74002#### 40549-6 ####[facility] ([id number])[address], [address] [place] [address] WBC (Bld) [#/Vol] 16.4 10*3/uL High 4.0-11.0 [facility] Comment on above: Performed By: #### C BCA, CMP, 3084-1 ####[facility] ([id number])[address] [place] [address] 63670#### 08985-4 ####[facility] ([id number])[address], [address], [place] [address] COMPREHENSIVE METABOLIC PANE Jalen 09-22-2023 Albumin [Mass/Vol] 2.7 g/dL Low 3.2-5.3 [facility] Comment on above: Performed By: #### C BCA, CMP, 3084-1 ####[facility] ([id number])[address] [place] [address] 88142#### 17547-5 ####[facility] ([id number])[address], [address] [place] [address] ALP [Catalytic activity/Vol] 84 U/L Normal 39-130 [facility] Comment on above: Performed By: #### C BCA, CMP, 3084-1 ####[facility] ([id number])[address] [place] [address] 31827#### 50148-0 ####[facility] ([id number])[address], [address], [place] [address] ALT [Catalytic activity/Vol] 21 U/L Normal 0-40 [facility] Comment on above: Performed By: #### C BCA, CMP, 3084-1 ####[facility] ([id number])[address] [place] [address] 16168#### 96864-7 ####[facility] ([id number])[address], [address] [place] [address] Anion gap [Moles/Vol] 8 mmol/L Normal 5-15 [facility] Comment on above: Performed By: #### C BCA, CMP, 3084-1 ####[facility] ([id number])[address] [place] [address] 33930#### 66709-0 ####[facility] ([id number])[address], [address], [place] [address] AST [Catalytic activity/Vol] 39 U/L Normal 0-41 [facility] Comment on above: Performed By: #### C BCA, CMP, 3084-1 ####[facility] ([id number])[address] [place] [address] 43963#### 47490-5 ####[facility] ([id number])[address], [address], [place] [address] Bilirubin [Mass/Vol] 0.6 mg/dL Normal 0.3-1.2 [facility] Comment on above: Performed By: #### C BCA, CMP, 3084-1 ####[facility] ([id number])[address] [place] [address] 72656#### 58767-3 ####[facility] ([id number])[address], [address], [place] [address] Calcium [Mass/Vol] 8.0 mg/dL Low 8.5-10.5 [facility] Comment on above: Performed By: #### C BCA, CMP, 4-1 ####[facility] ([id number])[address] [place] [address] 09386#### 67110-6 ####[facility] ([id number])[address], [address] [place] [address] 13205 Chloride [Moles/Vol] 103 mmol/L Normal 98-109 [facility] Comment on above: Performed By: #### C BCA, CMP, 4-1 ####[facility] ([id number])[address] [place] [address] 58852#### 41943-3 ####[facility] ([id number])[address], [place] [address] CO2 [Moles/Vol] 25 mmol/L Normal 22-32 [facility] Comment on above: Performed By: #### C BCA, CMP, 3084-1 ####[facility] ([id number])[address] [place] [address] [place] [address]#### 18379-9 ####[facility] ([id number])[address], [address], [place] [address] Creatinine [Mass/Vol] 0.61 mg/dL Low 0.70-1.20 [facility] Comment on above: Result Comment: METH OD TRACEABLE TO IDMS STANDARD Performed By: #### C MAGALI WOODALL, 3083-1 ####[facility] ([id number])[address] [place] [address] 10336#### 65823-3 ####[facility] ([id number])[address], [address] [address] eGFR (CKD-EPI) NON-RACE DEPENDENT >90 Normal >59 [facility] Comment on above: Result Comment: Repo rted eGFR is based on theCKD-EPI 2020 equation that doesnot use a race coefficient. Performed By: #### C MAGALI WOODALL, 3083-03 ####[facility] ([id number])[address] [place] [address] 62528#### 75302-5 ####[facility] ([id number])[address], [address] [place] [address] 62525 Glucose [Mass/Vol] 88 mg/dL Normal 65-99 [facility] Comment on above: Performed By: #### C TALISHA CMP, 3083-03 ####[facility] ([id number])[address] [place] [address] 25618#### 78595-0 ####[facility] ([id number])[address], [address] [address] Potassium [Moles/Vol] 3.6 mmol/L Normal 3.5-5.0 [facility] Comment on above: Performed By: #### C TALISHA CMP, 3083- ####[facility] ([id number])[address] [place] [address] 87818#### 46141-0 ####[facility] ([id number])[address] [facility], [address] [place] [address] 87928 Protein [Mass/Vol] 5.6 g/dL Low 6.0-8.0 [facility] Comment on above: Performed By: #### C BCA, CMP, 3084-1 ####[facility] ([id number])[address] [place] [address] 20298#### 48361-4 ####[facility] ([id number])[address] [facility], [address] [place] [address] 90430 Sodium [Moles/Vol] 136 mmol/L Normal 134-146 [facility] Comment on above: Performed By: #### C BCA, CMP, 3083-1 ####[facility] ([id number])[address] [place] [address] 19108#### 93122-6 ####[facility] ([id number])[address] [facility], [address] [place] [address] 42095 Urea nitrogen [Mass/Vol] 11 mg/dL Normal 5-27 [facility] Comment on above: Performed By: #### C BCA, CMP, 3083-1 ####[facility] ([id number])[address] [place] [address] 22419#### 81075-8 ####[facility] ([id number])[address] [facility], [address] [place] [address] 96603 ESR Photometric method (Bld) [Velocity]on 09-22-2023 ESR, ERYTHROCYTE SEDIMENTATION RATE 31 mm/h High 0-20 [facility] Comment on above: Performed By: #### C BCA, CMP, 3083- ####[facility] ([id number])[address] [place] [address] 52315#### 04457-4 ####[facility] ([id number])[address] [place] [address], [address] [place] [address] 26135 URIC ACIDon 09-22-2023 Urate [Mass/Vol] 4.7 mg/dL Normal 2.6-7.2 [facility] Comment on above: Performed By: #### C BCA, CMP, 3084-1 ####[facility] ([id number])[address] [place] [address] 20116#### 68106-0 ####[facility] ([id number])[address] [place] [address], [address] [place] [address] Home Health Recordson 2023 Home Health Records [id number]#1.00TIFF Normal [facility] Retirement Recordson 09-14 Retirement Records [id number]#1.00TIFF Normal [facility] Office Visiton 09-15-2023 Follow-up visit [id number] Luke Haywood 1955 M Date Provider Department Center 09/15/2023 CARLSO TA CYNTHIA Damon Family History Problem Relation Age of Onset Coronary artery disease Father Coronary artery disease Brother Family Status - Relation Status Age at Father Brother Level of Service:06597 [place] OFFICE/OUTPATIENT NEW MODERATE MDM 45 MINUTES Normal [facility] Orders Onlyon 09-15-2023 Orders Only [id number] Luke Haywood 1955 M Date Provider Department Center 09/15/2023 ANGIE SIMMS CYNTHIA Damon Family History Problem Relation Age of Onset Coronary artery disease Father Coronary artery disease Brother Family Status - Relation Status Age at Father Brother Normal [facility] ED Note-Physicianon 09-10-19 24 ED Note-Physician [id number]#1.00TIFF Normal [facility] RAD - MISCon 09-10-2023 RAD - MISC [id number]#1.00TIFF Normal [facility] 36on 09-02-2023 36 Patient's sister in law Bryanna has been concerned about Jc's tachycardia and hypotension. She said the group home is giving him 12.5mg of metoprolol for SPB > 100. She said they are not adjusting anything for when his HR is high, around 130's. He was here yesterday for device interrogation and I sent him to the ED. His HR was 125-145. He is scheduled to see Dr. Bartlett the next time he's here in [place] on 09/14. Per device check, he does go into afib w/ RVR a lot. Bryanna is just worried that his HR is so fast most of the time and the group home is only concerned with his BP. Any advice? Thanks in advance! Normal [facility] 36on 08-26-2023 36 Please call Bryanna pt sister in law about near syncope episodes. Normal [facility] Telephoneon 08-26-2023 Telephone [id number] Luke Haywood 1955 M Date Provider Department Center 08/26/2023 SMITH LOPEZ [facility] Family History Problem Relation Age of Onset Coronary artery disease Father Coronary artery disease Brother Family Status - Relation Status Age at Father Brother Normal [facility] C DIFFICILE BY PCRon 024 C. difficile toxin genes DENIS+probe Ql (Stl) TOXIGENIC C DIFF Negative (qualifier value) 027 NAP1 Negative (qualifier value) Normal PRNEG [facility] Comment on above: Performed By: #### 5 4067-4 ####[facility] ([id number])[address] [facility], [address] [place] [address]#### 87171-0 ####[facility] ([id number])[address] [place] [address] 61689[facility]RE[facility] ([id number])[address], [address] [place] [address] 78945 GI PANELon 08-14-2023 Gastrointestinal pathogens DNA and RNA panel DENIS+non-probe (Stl) [facility] Comment on above: Performed By: #### 5 4067-4 ####[facility] ([id number])[address], [address] [place] [address] 08113#### 87554-7 ####[facility] ([id number])[address] [place] [address] 21290EOJXWAAD[facility] ([id number])[address], [address] [address] CBC AND AUTO DIFFon 08-12-19 24 Band form neutrophils/100 WBC (Bld) 1.0 % Normal [facility] Comment on above: Performed By: #### C NICCI, , CBCA ####[facility] ([id number])[address] [place] [address] 30420 JENY 1+ Abnormal NONE [facility] Comment on above: Performed By: #### C NICCI, , CBCA ####[facility] ([id number])[address] [place] [address] 19748 Eosinophils (Bld) [#/Vol] 0.3 10*3/uL Normal 0.0-0.4 [facility] Comment on above: Performed By: #### C NICCI, , CBCA ####[facility] ([id number])[address] [place] [address] Eosinophils/100 WBC (Bld) 2.0 % Normal [facility] Comment on above: Performed By: #### C NICCI, , CBCA ####[facility] ([id number])[address] [place] [address] [place] [address] Erythrocyte distribution width (RBC) [Ratio] 19.9 % High 11.5-15.0 [facility] Comment on above: Performed By: #### C NICCI, , CBCA ####[facility] ([id number])[address] [place] [address] [place] [address] FRAGMENT 1+ Abnormal NONE [facility] Comment on above: Performed By: #### C NICCI, , CBCA ####[facility] ([id number])[address] [place] [address] 745[address] Hematocrit (Bld) [Volume fraction] 34.3 % Low 39-49 [facility] Comment on above: Performed By: #### C NICCI, , CBCA ####[facility] ([id number])[address] [place] [address] 85680 Hemoglobin (Bld) [Mass/Vol] 11.5 g/dL Low 13.0-17.0 [facility] Comment on above: Performed By: #### C NICCI, , CBCA ####[facility] ([id number])[address] [place] [address] [place] [address] LYMPHOCYTE, ATYPICAL 3.0 % Normal [facility] Comment on above: Performed By: #### C NICCI, , CBCA ####[facility] ([id number])[address] [place] [address] 04101 Lymphocytes (Bld) [#/Vol] 2.1 10*3/uL Normal 1.0-3.5 [facility] Comment on above: Performed By: #### C NICCI, , CBCA ####[facility] ([id number])[address] [place] [address] 31285 Lymphocytes/100 WBC (Bld) 13.0 % Normal [facility] Comment on above: Performed By: #### C NICCI, , CBCA ####[facility] ([id number])[address] [place] [address] 34412 MCH (RBC) [Entitic mass] 30.0 pg Normal 27-34 [facility] Comment on above: Performed By: #### C NICCI, , CBCA ####[facility] ([id number])[address] [place] [address] 52345 MCHC (RBC) [Mass/Vol] 33.5 g/dL Normal 32-36 [facility] Comment on above: Performed By: #### C NICCI, , CBCA ####[facility] ([id number])[address] [place] [address] 52518 MCV (RBC) [Entitic vol] 89 fL Normal 80-100 [facility] Comment on above: Performed By: #### C NICCI, , CBCA ####[facility] ([id number])[address] [place] [address] 41074 Monocytes (Bld) [#/Vol] 2.1 10*3/uL High 0-0.9 [facility] Comment on above: Performed By: #### C NICCI, , CBCA ####[facility] ([id number])[address] [place] [address] 29682 Monocytes/100 WBC (Bld) 16.0 % Normal [facility] Comment on above: Performed By: #### C NICCI, , CBCA ####[facility] ([id number])[address] [place] [address] 71761 Neutrophils (Bld) [#/Vol] 8.7 10*3/uL High 1.5-6.6 [facility] Comment on above: Performed By: #### C NICCI, , CBCA ####[facility] ([id number])[address] [place] [address] 34350 NUCLEATED RBC 7.0 /100 WBC High 0.0-1.0 [facility] Comment on above: Performed By: #### C NICCI, , CBCA ####[facility] ([id number])[address] [place] [address] 21601 Platelet mean volume (Bld) [Entitic vol] 8.0 fL Normal 7-12 [facility] Comment on above: Performed By: #### C NICCI, , CBCA ####[facility] ([id number])[address] [place] [address] 86159 Platelets (Bld) [#/Vol] 478 10*3/uL High 150-450 [facility] Comment on above: Performed By: #### C NICCI, , CBCA ####[facility] ([id number])[address] [place] [address] 35554 RBC COUNT 3.83 X10E12/L Low 4.10-5.70 [facility] Comment on above: Performed By: #### C NICCI, , CBCA ####[facility] ([id number])[address] [place] [address] 61378 SEG NEUTROPHIL 65.0 % Normal [facility] Comment on above: Performed By: #### C NICCI, , CBCA ####[facility] ([id number])[address] [place] [address] 25183 STOMATOCYTE 1+ Abnormal NONE [facility] Comment on above: Performed By: #### C NICCI, , CBCA ####[facility] ([id number])[address] [place] [address] 57766 WBC (Bld) [#/Vol] 13.2 10*3/uL High 4.0-11.0 [facility] Comment on above: Performed By: #### C NICCI, , CBCA ####[facility] ([id number])[address] [place] [address] 68569 COMPREHENSIVE METABOLIC PANE Jalen 08-12-2023 Albumin [Mass/Vol] 2.1 g/dL Low 3.2-5.3 [facility] Comment on above: Performed By: #### C NICCI, , CBCA ####[facility] ([id number])[address] [place] [address] 68101 ALP [Catalytic activity/Vol] 172 U/L High 39-130 [facility] Comment on above: Performed By: #### Bob GRAJEDA, , CBCA ####[facility] ([id number])[address] [place] [address] 98777 ALT [Catalytic activity/Vol] 18 U/L Normal 0-40 [facility] Comment on above: Performed By: #### Bob GRAJEDA, , CBCA ####[facility] ([id number])[address] [place] [address] 41573 Anion gap [Moles/Vol] 14 mmol/L Normal 5-15 [facility] Comment on above: Performed By: #### Bob GRAJEDA, , CBCA ####[facility] ([id number])[address] [place] [address] 90194 AST [Catalytic activity/Vol] 19 U/L Normal 0-41 [facility] Comment on above: Performed By: #### Bob GRAJEDA, , CBCA ####[facility] ([id number])[address] [place] [address] 54305 Bilirubin [Mass/Vol] 0.7 mg/dL Normal 0.3-1.2 [facility] Comment on above: Performed By: #### C NICCI, , CBCA ####[facility] ([id number])[address] [place] [address] 75043 Calcium [Mass/Vol] 7.9 mg/dL Low 8.5-10.5 [facility] Comment on above: Performed By: #### C NICCI, , CBCA ####[facility] ([id number])[address] [place] [address] 50043 Chloride [Moles/Vol] 96 mmol/L Low 98-109 [facility] Comment on above: Performed By: #### C NICCI, , CBCA ####[facility] ([id number])[address] [place] [address] 75502 CO2 [Moles/Vol] 24 mmol/L Normal 22-32 [facility] Comment on above: Performed By: #### C NICCI, , CBCA ####[facility] ([id number])[address] [place] [address] 31672 Creatinine [Mass/Vol] 0.70 mg/dL Normal 0.70-1.20 [facility] Comment on above: Result Comment: METH OD TRACEABLE TO IDMS STANDARD Performed By: #### C NICCI, , CBCA ####[facility] ([id number])[address] [place] [address] 22614 eGFR (CKD-EPI) NON-RACE DEPENDENT >90 Normal >59 [facility] Comment on above: Result Comment: Repo rted eGFR is based on theCKD-EPI 2020 equation that doesnot use a race coefficient. Performed By: #### C NICCI, , CBCA ####[facility] ([id number])[address] [place] [address] 84771 Glucose [Mass/Vol] 127 mg/dL High 65-99 [facility] Comment on above: Performed By: #### C NICCI, , CBCA ####[facility] ([id number])[address] [place] [address] 83278 Potassium [Moles/Vol] 3.3 mmol/L Low 3.5-5.0 [facility] Comment on above: Performed By: #### C NICCI, , CBCA ####[facility] ([id number])[address] [place] [address] 88678 Protein [Mass/Vol] 5.4 g/dL Low 6.0-8.0 [facility] Comment on above: Performed By: #### C NICCI, , CBCA ####[facility] ([id number])[address] [place] [address] 39057 Sodium [Moles/Vol] 134 mmol/L Normal 134-146 [facility] Comment on above: Performed By: #### C NICCI, , CBCA ####[facility] ([id number])[address] [place] [address] 42336 Urea nitrogen [Mass/Vol] 15 mg/dL Normal 5-27 [facility] Comment on above: Performed By: #### Bob GRAJEDA, , CBCA ####[facility] ([id number])[address] [place] [address] ABDOMEN AND PELVIS W CONT on 08-12-2023 CT ABDOMEN AND PELVIS W CONT Normal [facility] MAGNESIUMon 08-12-2023 Magnesium [Mass/Vol] 1.5 mg/dL Low 1.8-2.6 [facility] Comment on above: Performed By: #### C NICCI, , CBCA ####[facility] ([id number])[address] [place] [address] 40440 URINE CULTUREon 08-12-2023 Bacteria identified Cx Nom (U) CULTURE RESULTS NO GROWTH AT <1000 CFU/mL Normal [facility] Comment on above: Performed By: #### 6 30-4 ####[facility] ([id number])[address] [place] [address], [address], [place] [address] URN MACROSCOPIC NURon 2023 BILIRUBIN BR[place] Small Abnormal NEG [facility] Comment on above: Performed By: #### N UM ####[facility] ([id number])[address] [place] [address], [place] [address] BLOOD/HGB [place] MODERATE Abnormal NEG [facility] Comment on above: Performed By: #### N UM ####[facility] ([id number])[address] [place] [address], [place] [address] GLUCOSE [place] Negative Normal NEG [facility] Comment on above: Performed By: #### N UM ####[facility] ([id number])[address] [place] [address], [place] [address] KETONES BR[place]ON Trace Abnormal NEG [facility] Comment on above: Performed By: #### N UM ####[facility] ([id number])[address] [place] [address], [place] [address] LEUKOCYTE ESTERASE BRENTON Negative Normal NEG [facility] Comment on above: Performed By: #### N UM ####[facility] ([id number])[address] [place] [address], [place] [address] NITRITE [place] Negative Normal NEG [facility] Comment on above: Performed By: #### N UM ####[facility] ([id number])[address] [place] [address], [place] [address] PH BR[place]ON 6.0 Normal 5.0-8.5 [facility] Comment on above: Performed By: #### N UM ####[facility] ([id number])[address] [place] [address], [place] [address] PROTEIN BR[place] 30 mg/dL Abnormal NEG [facility] Comment on above: Performed By: #### N UM ####[facility] ([id number])[address] [place] [address] 09755 SPECIFIC GRAVITY BRENTON 1.020 Normal 1.003-1.035 [facility] Comment on above: Performed By: #### N UM ####[facility] ([id number])[address] [place] [address] 37410 UROBILINOGEN BR[place]ON 0.2 eu/dL Normal <1.1 [facility] Comment on above: Performed By: #### N UM ####[facility] ([id number])[address] [place] [address] SKULL TO THIGHon 07-[address] SKULL TO THIGH Normal [facility] IR PORT INSERTION > 5 YRSon 08-06-2023 IR PORT INSERTION > 5 YRS Normal [facility] PLATELET COUNT AND MPVon Platelet mean volume (Bld) [Entitic vol] 8.5 fL Normal 7-12 [facility] Comment on above: Performed By: #### P INR, 84003-0, PLTCT ####[facility] ([id number])[address], [address], [place] [address] Platelets (Bld) [#/Vol] 538 10*3/uL High 150-450 [facility] Comment on above: Performed By: #### P INR, 43018-8, PLTCT ####[facility] ([id number])[address], [address], [place] [address] PROTIME AND INRon 08-05-2023 INR Coag (PPP) [Relative time] 1.4 {INR} High 0.8-1.1 [facility] Comment on above: Performed By: #### P INR, 70298-4, PLTCT ####[facility] ([id number])[address], [address], [place] [address] PT Coag (PPP) [Time] 15.6 s High 9.8-13.2 [facility] Comment on above: Performed By: #### P INR, 92436-0, PLTCT ####[facility] ([id number])[address], [address], [place] [address] aPTT Coag (PPP) [Time]on aPTT Coag (Bld) [Time] 36 s Normal 26-37 [facility] Comment on above: Performed By: #### P INR, 88626-8, PLTCT ####[facility] ([id number])[address], [address], [place] [address] Office Visiton 07-24-2023 Follow-up visit [id number] Luke Haywood 1955 M Date Provider Department Center 07/24/2023 [facility] Family History Problem Relation Age of Onset Coronary artery disease Father Coronary artery disease Brother Family Status - Relation Status Age at Father Brother Level of Service:04405 [place] OFFICE/OUTPATIENT ESTABLISHED MOD MDM 30 MIN Reason for Visit and Comments: Follow-up [592147] - Low/high heart rates Normal [facility] 36on 07-23-2023 36 I tried calling the facility back, but they didn't seem to know where Lee Ann was or anything about her calling me. If the patient calls, we will make him an appt. Normal [facility] 36 Patient was seen by several different pulmonary doctors at [facility]. Do you want the patient following up with us? [facility] BASIC METABOLIC PANLon 07-16 Anion gap [Moles/Vol] 6 mmol/L Normal 5-15 [facility] Comment on above: Performed By: #### C BCA, BMP ####[facility] ([id number])[address], [address], [place] [address] Calcium [Mass/Vol] 9.1 mg/dL Normal 8.5-10.5 [facility] Comment on above: Performed By: #### C TALISHA, BMP ####[facility] ([id number])[address], [address], [place] [address] Chloride [Moles/Vol] 95 mmol/L Low 98-109 [facility] Comment on above: Performed By: #### C TALISHA, BMP ####[facility] ([id number])[address] [address], [place] [address] CO2 [Moles/Vol] 35 mmol/L High 22-32 [facility] Comment on above: Performed By: #### C TALISHA, BMP ####[facility] ([id number])[address] [address], [place] [address] Creatinine [Mass/Vol] 0.47 mg/dL Low 0.60-1.30 [facility] Comment on above: Result Comment: METH OD TRACEABLE TO IDMS STANDARD Performed By: #### C TALISHA, BMP ####[facility] ([id number])[address] [address], [place] [address] eGFR (CKD-EPI) NON-RACE DEPENDENT >90 Normal >59 [facility] Comment on above: Result Comment: Repo rted eGFR is based on theCKD-EPI 2020 equation that doesnot use a race coefficient. Performed By: #### C BCA, BMP ####[facility] ([id number])[address] [address], [place] [address] Glucose [Mass/Vol] 87 mg/dL Normal 65-99 [facility] Comment on above: Performed By: #### C BCA, BMP ####[facility] ([id number])[address] [address] [place] [address] Potassium [Moles/Vol] 4.9 mmol/L Normal 3.5-5.0 [facility] Comment on above: Performed By: #### C BCA, BMP ####[facility] ([id number])[address], [address] [place] [address] Sodium [Moles/Vol] 136 mmol/L Normal 134-146 [facility] Comment on above: Performed By: #### C BCA, BMP ####[facility] ([id number])[address], [address] [place] [address] Urea nitrogen [Mass/Vol] 10 mg/dL Normal 5-27 [facility] Comment on above: Performed By: #### C TALISHA, BMP ####[facility] ([id number])[address] [address] CBC AND AUTO DIFFon 07-17-19 ABSOLUTE BASOPHIL 0.0 X10E9/L Normal 0.0-0.2 [facility] Comment on above: Performed By: #### C BCA, BMP ####[facility] ([id number])[address], [address] [place] [address] ABSOLUTE NEUTROPHIL 10.0 X10E9/L High 1.5-6.6 [facility] Comment on above: Performed By: #### C BCA, BMP ####[facility] ([id number])[address] [address] Basophils/100 WBC (Bld) 0.2 % Normal [facility] Comment on above: Performed By: #### C BCA, BMP ####[facility] ([id number])[address] [address] Eosinophils (Bld) [#/Vol] 0.1 10*3/uL Normal 0.0-0.4 [facility] Comment on above: Performed By: #### C BCA, BMP ####[facility] ([id number])[address], [address] [place] [address] Eosinophils/100 WBC (Bld) 0.8 % Normal [facility] Comment on above: Performed By: #### C TALISHA, BMP ####[facility] ([id number])[address], [address] [place] [address] Erythrocyte distribution width (RBC) [Ratio] 18.1 % High 11.5-15.0 [facility] Comment on above: Performed By: #### C TALISHA, BMP ####[facility] ([id number])[address], [address] [place] [address] Hematocrit (Bld) [Volume fraction] 33.7 % Low 39-49 [facility] Comment on above: Performed By: #### C TALISHA, BMP ####[facility] ([id number])[address], [address] [place] [address] Hemoglobin (Bld) [Mass/Vol] 11.2 g/dL Low 13.0-17.0 [facility] Comment on above: Performed By: #### C TALISHA, BMP ####[facility] ([id number])[address], [address] [place] [address] Lymphocytes (Bld) [#/Vol] 3.1 10*3/uL Normal 1.0-3.5 [facility] Comment on above: Performed By: #### C TALISHA, BMP ####[facility] ([id number])[address], [address] [place] [address] Lymphocytes/100 WBC (Bld) 18.5 % Normal [facility] Comment on above: Performed By: #### C TALISHA, BMP ####[facility] ([id number])[address], [address] [place] [address] MCH (RBC) [Entitic mass] 29.9 pg Normal 27-34 [facility] Comment on above: Performed By: #### C TALISHA, BMP ####[facility] ([id number])[address], [address], [place] [address] MCHC (RBC) [Mass/Vol] 33.1 g/dL Normal 32-36 [facility] Comment on above: Performed By: #### C TALISHA, BMP ####[facility] ([id number])[address], [address], [place] [address] MCV (RBC) [Entitic vol] 90 fL Normal 80-100 [facility] Comment on above: Performed By: #### C TALISHA, BMP ####[facility] ([id number])[address], [address], [place] [address] Monocytes (Bld) [#/Vol] 3.5 10*3/uL High 0-0.9 [facility] Comment on above: Performed By: #### C TALISHA, BMP ####[facility] ([id number])[address], [address], [place] [address] Monocytes/100 WBC (Bld) 20.8 % Normal [facility] Comment on above: Performed By: #### C TALISHA, BMP ####[facility] ([id number])[address], [address], [place] [address] Neutrophils/100 WBC (Bld) 59.7 % Normal [facility] Comment on above: Performed By: #### C TALISHA, BMP ####[facility] ([id number])[address], [address], [place] [address] Platelet mean volume (Bld) [Entitic vol] 8.3 fL Normal 7-12 [facility] Comment on above: Performed By: #### C BCA, BMP ####[facility] ([id number])[address], [address], [place] [address] Platelets (Bld) [#/Vol] 475 10*3/uL High 150-450 [facility] Comment on above: Performed By: #### C TALISHA, BMP ####[facility] ([id number])[address], [address] [place] [address] POLYCHROMASIA 1+ Abnormal [facility] Comment on above: Performed By: #### C TALISHA, BMP ####[facility] ([id number])[address], [address] [place] [address] RBC COUNT 3.73 X10E12/L Low 4.10-5.70 [facility] Comment on above: Performed By: #### C TALISHA, BMP ####[facility] ([id number])[address], [address] [address] TARGET 1+ Abnormal [facility] Comment on above: Performed By: #### C TALISHA, BMP ####[facility] ([id number])[address], [address] [place] [address] WBC (Bld) [#/Vol] 16.8 10*3/uL High 4.0-11.0 [facility] Comment on above: Performed By: #### C TALISHA, BMP ####[facility] ([id number])[address], [address] [place] [address] ACUTE HEPATITIS PANELon 06-28 ANTI HCV W/PCR REFLX Non-Reactive Normal [facility] Comment on above: Result Comment: If r ecent infection suspected, recommendrepeat testing (>2 months).Ghlucy-yg-jiwjwl ratio is <0.80. Performed By: #### C TALISHA, ISELA, 72863-1, AHP, 46741-1 ####[facility] ([id number])[address], [address] [place] [address]98[address] HEPATITIS A IGM Non-Reactive Normal NRCT [facility] Comment on above: Performed By: #### C TALISHA, ISELA, 28007-3, AHP, 41679-7 ####[facility] ([id number])[address], [address], [place] [address] HEPATITIS B CORE IGM Negative Normal NEG [facility] Comment on above: Performed By: #### C BCA, BMP, 27729-6, AHP, 93397-1 ####[facility] ([id number])[address], [address] [place] [address] HEPATITIS B SURF AG Negative Normal NEG [facility] Comment on above: Performed By: #### C BCA, BMP, 71148-7, AHP, 44314-8 ####[facility] ([id number])[address], [address] [place] [address] BASIC METABOLIC PANLon 07-15 Anion gap [Moles/Vol] 5 mmol/L Normal 5-15 [facility] Comment on above: Performed By: #### C BCA, BMP, 66966-5, AHP, 75709-9 ####[facility] ([id number])[address], [address] [place] [address] Calcium [Mass/Vol] 9.2 mg/dL Normal 8.5-10.5 [facility] Comment on above: Performed By: #### C BCA, BMP, 92230-7, AHP, 94300-1 ####[facility] ([id number])[address], [address] [place] [address] Chloride [Moles/Vol] 95 mmol/L Low 98-109 [facility] Comment on above: Performed By: #### C BCA, BMP, 87346-0, AHP, 53656-6 ####[facility] ([id number])[address], [address] [place] [address], [place] [address] CO2 [Moles/Vol] 34 mmol/L High 22-32 [facility] Comment on above: Performed By: #### C BCA, BMP, 39547-6, AHP, 59650-0 ####[facility] ([id number])[address] [address] Creatinine [Mass/Vol] 0.43 mg/dL Low 0.60-1.30 [facility] Comment on above: Result Comment: METH OD TRACEABLE TO IDMS STANDARD Performed By: #### C BCA, BMP, 60974-5, AHP, 33309-6 ####[facility] ([id number])[address] [address] eGFR (CKD-EPI) NON-RACE DEPENDENT >90 Normal >59 [facility] Comment on above: Result Comment: Repo rted eGFR is based on theCKD-EPI 2020 equation that doesnot use a race coefficient. Performed By: #### C BCA, BMP, 02074-2, AHP, 02949-3 ####[facility] ([id number])[address] [address] [place] [address] Glucose [Mass/Vol] 81 mg/dL Normal 65-99 [facility] Comment on above: Performed By: #### C BCA, BMP, 30241-6, AHP, 00414-0 ####[facility] ([id number])[address] [address] Potassium [Moles/Vol] 5.0 mmol/L Normal 3.5-5.0 [facility] Comment on above: Performed By: #### C BCA, BMP, 89861-4, AHP, 54130-2 ####[facility] ([id number])[address] [address] Sodium [Moles/Vol] 134 mmol/L Normal 134-146 [facility] Comment on above: Performed By: #### C BCA, BMP, 97907-4, AHP, 37099-3 ####[facility] ([id number])[address], [address], [place] [address] Urea nitrogen [Mass/Vol] 9 mg/dL Normal 5-27 [facility] Comment on above: Performed By: #### C BCA, BMP, 95986-5, AHP, 20012-8 ####[facility] ([id number])[address], [address], [place] [address] CBC AND AUTO DIFFon 07-16-19 24 ABSOLUTE BASOPHIL 0.1 X10E9/L Normal 0.0-0.2 [facility] Comment on above: Performed By: #### C BCA, BMP, 33319-6, AHP, 83049-6 ####[facility] ([id number])[address], [address], [place] [address] ABSOLUTE NEUTROPHIL 12.1 X10E9/L High 1.5-6.6 [facility] Comment on above: Performed By: #### C BCA, BMP, 87864-2, AHP, 55818-1 ####[facility] ([id number])[address] [address] [place] [address] Basophils/100 WBC (Bld) 0.7 % Normal [facility] Comment on above: Performed By: #### C BCA, BMP, 32063-5, AHP, 79319-3 ####[facility] ([id number])[address], [address], [place] [address] Eosinophils (Bld) [#/Vol] 0.1 10*3/uL Normal 0.0-0.4 [facility] Comment on above: Performed By: #### C BCA, BMP, 48467-5, AHP, 44398-2 ####[facility] ([id number])[address], [address], [place] [address] Eosinophils/100 WBC (Bld) 0.7 % Normal [facility] Comment on above: Performed By: #### C BCA, BMP, 62646-4, AHP, 46427-4 ####[facility] ([id number])[address] [address] [place] [address] Erythrocyte distribution width (RBC) [Ratio] 17.8 % High 11.5-15.0 [facility] Comment on above: Performed By: #### C BCA, BMP, 41580-1, AHP, 02084-7 ####[facility] ([id number])[address] [address], [place] [address] Hematocrit (Bld) [Volume fraction] 35.8 % Low 39-49 [facility] Comment on above: Performed By: #### C BCA, BMP, 93931-3, AHP, 73852-5 ####[facility] ([id number])[address] [address] [place] [address] Hemoglobin (Bld) [Mass/Vol] 11.9 g/dL Low 13.0-17.0 [facility] Comment on above: Performed By: #### C BCA, BMP, 95406-8, AHP, 23833-2 ####[facility] ([id number])[address] [address] Lymphocytes (Bld) [#/Vol] 4.0 10*3/uL High 1.0-3.5 [facility] Comment on above: Performed By: #### C BCA, BMP, 13293-4, AHP, 71581-1 ####[facility] ([id number])[address] [address] Lymphocytes/100 WBC (Bld) 20.5 % Normal [facility] Comment on above: Performed By: #### C BCA, BMP, 58840-1, AHP, 90594-3 ####[facility] ([id number])[address], [address] [place] [address]84 MCH (RBC) [Entitic mass] 30.2 pg Normal 27-34 [facility] Comment on above: Performed By: #### C BCA, BMP, 84966-1, AHP, 70975-1 ####[facility] ([id number])[address], [address] [place] [address] MCHC (RBC) [Mass/Vol] 33.3 g/dL Normal 32-36 [facility] Comment on above: Performed By: #### C BCA, BMP, 06803-0, AHP, 58798-8 ####[facility] ([id number])[address], [address] [place] [address]6869 MCV (RBC) [Entitic vol] 91 fL Normal 80-100 [facility] Comment on above: Performed By: #### Bob BCA, BMP, 73253-6, AHP, 63835-6 ####[facility] ([id number])[address] [address] [place] [address] Monocytes (Bld) [#/Vol] 3.0 10*3/uL High 0-0.9 [facility] Comment on above: Performed By: #### C BCA, BMP, 74016-6, AHP, 35509-2 ####[facility] ([id number])[address] [address] [place] [address] Monocytes/100 WBC (Bld) 15.4 % Normal [facility] Comment on above: Performed By: #### C BCA, BMP, 03240-8, AHP, 54995-7 ####[facility] ([id number])[address] [address] [place] [address] Neutrophils/100 WBC (Bld) 62.7 % Normal [facility] Comment on above: Performed By: #### Bob BCA, BMP, 44007-8, AHP, 47793-5 ####[facility] ([id number])[address], [address], [place] [address] Platelet mean volume (Bld) [Entitic vol] 8.4 fL Normal 7-12 [facility] Comment on above: Performed By: #### C BCA, BMP, 11211-5, AHP, 78496-8 ####[facility] ([id number])[address], [address], [place] [address] Platelets (Bld) [#/Vol] 471 10*3/uL High 150-450 [facility] Comment on above: Performed By: #### C BCA, BMP, 50585-9, AHP, 73046-7 ####[facility] ([id number])[address] [address], [place] [address] RBC COUNT 3.96 X10E12/L Low 4.10-5.70 [facility] Comment on above: Performed By: #### C BCA, BMP, 31808-0, AHP, 22039-0 ####[facility] ([id number])[address] [address] [place] [address], [place] [address] WBC (Bld) [#/Vol] 19.3 10*3/uL High 4.0-11.0 [facility] Comment on above: Performed By: #### C BCA, BMP, 87032-8, AHP, 82605-4 ####[facility] ([id number])[address], [address], [place] [address] ESR Photometric method (Bld) [Velocity]on 07-16-2023 ESR, ERYTHROCYTE SEDIMENTATION RATE 72 mm/h High 0-20 [facility] Comment on above: Performed By: #### C BCA, BMP, 96019-0, AHP, 04143-0 ####[facility] ([id number])[address] [address] HIV 1+2 Ab+HIV1 p24 Ag IA Ql on 07-16-2023 HIV 1 and 2 Ab/Ag Screen Non-Reactive Normal NRCT [facility] Comment on above: Result Comment: This information has been disclosed to youfrom confidential records protected fromdisclosure by state law. You shall make nofurther disclosure of this information withoutthe specific, written and informed releaseof the individual to whom it pertains, or asotherwise permitted by state law. A generalauthorization for the release of medical orother information is not sufficient for thepurpose of the release of HIV test resultsor diagnoses. Performed By: #### C TALISHA, BMP, 36603-8, P, 73118-8 ####[facility] ([id number])[address] [address] BASIC METABOLIC PANLon 07-14 Anion gap [Moles/Vol] 7 mmol/L Normal 5-15 [facility] Comment on above: Performed By: #### C BCA, BMP ####[facility] ([id number])[address] [address] Calcium [Mass/Vol] 8.9 mg/dL Normal 8.5-10.5 [facility] Comment on above: Performed By: #### C BCA, BMP ####[facility] ([id number])[address] [address] [place] [address] Chloride [Moles/Vol] 97 mmol/L Low 98-109 [facility] Comment on above: Performed By: #### C BCA, BMP ####[facility] ([id number])[address], [address] [address] CO2 [Moles/Vol] 33 mmol/L High 22-32 [facility] Comment on above: Performed By: #### C BCA, BMP ####[facility] ([id number])[address] [address] Creatinine [Mass/Vol] 0.29 mg/dL Low 0.60-1.30 [facility] Comment on above: Result Comment: METH OD TRACEABLE TO IDMS STANDARD Performed By: #### C BCA, BMP ####[facility] ([id number])[address] [address] eGFR (CKD-EPI) NON-RACE DEPENDENT >90 Normal >59 [facility] Comment on above: Result Comment: Repo rted eGFR is based on theCKD-EPI 2020 equation that doesnot use a race coefficient. Performed By: #### C BCA, BMP ####[facility] ([id number])[address] [address] Glucose [Mass/Vol] 90 mg/dL Normal 65-99 [facility] Comment on above: Performed By: #### C BCA, BMP ####[facility] ([id number])[address] [address] Potassium [Moles/Vol] 4.8 mmol/L Normal 3.5-5.0 [facility] Comment on above: Performed By: #### C BCA, BMP ####[facility] ([id number])[address] [address] Sodium [Moles/Vol] 137 mmol/L Normal 134-146 [facility] Comment on above: Performed By: #### C BCA, BMP ####[facility] ([id number])[address] [address] Urea nitrogen [Mass/Vol] 8 mg/dL Normal 5-27 [facility] Comment on above: Performed By: #### C BCA, BMP ####[facility] ([id number])[address], [place] [address] CBC AND AUTO DIFFon 07-15-19 Erythrocyte distribution width (RBC) [Ratio] 17.7 % High 11.5-15.0 [facility] Comment on above: Performed By: #### C TALISHA, BMP ####[facility] ([id number])[address] [address], [place] [address] Hematocrit (Bld) [Volume fraction] 34.1 % Low 39-49 [facility] Comment on above: Performed By: #### C TALISHA, BMP ####[facility] ([id number])[address] [address], [place] [address] Hemoglobin (Bld) [Mass/Vol] 11.1 g/dL Low 13.0-17.0 [facility] Comment on above: Performed By: #### Bob WOODALL, BMP ####[facility] ([id number])[address] [address] [place] [address] Lymphocytes (Bld) [#/Vol] 1.8 10*3/uL Normal 1.0-3.5 [facility] Comment on above: Performed By: #### Bob WOODALL, BMP ####[facility] ([id number])[address] [address], [place] [address] Lymphocytes/100 WBC (Bld) 9.0 % Normal [facility] Comment on above: Performed By: #### Bob WOODALL, BMP ####[facility] ([id number])[address] [address], [place] [address] MCH (RBC) [Entitic mass] 29.7 pg Normal 27-34 [facility] Comment on above: Performed By: #### C BCA, BMP ####[facility] ([id number])[address] [address] [place] [address] MCHC (RBC) [Mass/Vol] 32.5 g/dL Normal 32-36 [facility] Comment on above: Performed By: #### C TAILSHA, BMP ####[facility] ([id number])[address], [address], [place] [address] MCV (RBC) [Entitic vol] 91 fL Normal 80-100 [facility] Comment on above: Performed By: #### C BCA, BMP ####[facility] ([id number])[address], [address] [address] Monocytes (Bld) [#/Vol] 3.9 10*3/uL High 0-0.9 [facility] Comment on above: Performed By: #### C TALISHA, BMP ####[facility] ([id number])[address], [address], [place] [address] Monocytes/100 WBC (Bld) 20.0 % Normal [facility] Comment on above: Performed By: #### C BCA, BMP ####[facility] ([id number])[address] [address] [address] MYELOCYTE 1.0 % Normal [facility] Comment on above: Performed By: #### C BCA, BMP ####[facility] ([id number])[address], [address], [place] [address] Neutrophils (Bld) [#/Vol] 13.8 10*3/uL High 1.5-6.6 [facility] Comment on above: Performed By: #### C BCA, BMP ####[facility] ([id number])[address], [address], [place] [address] Platelet mean volume (Bld) [Entitic vol] 8.8 fL Normal 7-12 [facility] Comment on above: Performed By: #### C BCA, BMP ####[facility] ([id number])[address], [address], [place] [address] Platelets (Bld) [#/Vol] 427 10*3/uL Normal 150-450 [facility] Comment on above: Performed By: #### C TALISHA, BMP ####[facility] ([id number])[address], [address], [place] [address] RBC COUNT 3.73 X10E12/L Low 4.10-5.70 [facility] Comment on above: Performed By: #### C TALISHA, BMP ####[facility] ([id number])[address] [address] [place] [address] RBC morphology finding Nom (Bld) NORMAL Normal [facility] Comment on above: Performed By: #### C TALISHA, BMP ####[facility] ([id number])[address] [address] SEG NEUTROPHIL 70.0 % Normal [facility] Comment on above: Performed By: #### C TALISHA, BMP ####[facility] ([id number])[address] [address] [place] [address] WBC (Bld) [#/Vol] 19.7 10*3/uL High 4.0-11.0 [facility] Comment on above: Performed By: #### Bob WOODALL, BMP ####[facility] ([id number])[address] [address] Heparin unfractionated Chrom ogenic method Qn (PPP)on 07-15-2023 ANTI XA UFH 0.14 IU/mL Low 0.30-0.70 [facility] Comment on above: Result Comment: Opti mal time for testing is 6 hrs post dosageThis test is specific for monitoring patientson UFH, and is not recommended for use withother Anti-Xa medications. Performed By: #### 3 274-8 ####[facility] ([id number])[address] [address], [place] [address] ANTI XA UFH 0.07 IU/mL Low 0.30-0.70 [facility] Comment on above: Result Comment: Opti mal time for testing is 6 hrs post dosageThis test is specific for monitoring patientson UFH, and is not recommended for use withother Anti-Xa medications. Performed By: #### 3 274-8 ####[facility] ([id number])[address], [address], [place] [address] BASIC METABOLIC PANLon 07-13 Anion gap [Moles/Vol] 5 mmol/L Normal 5-15 [facility] Comment on above: Performed By: #### C BCA, 14920-9, BMP, 21783-8 ####[facility] ([id number])[address], [address] [place] [address] Calcium [Mass/Vol] 8.4 mg/dL Low 8.5-10.5 [facility] Comment on above: Performed By: #### C BCA, 03562-4, BMP, 31238-2 ####[facility] ([id number])[address], [address] [place] [address] Chloride [Moles/Vol] 93 mmol/L Low 98-109 [facility] Comment on above: Performed By: #### C BCA, 79308-1, BMP, 46558-7 ####[facility] ([id number])[address] [address] [place] [address] CO2 [Moles/Vol] 35 mmol/L High 22-32 [facility] Comment on above: Performed By: #### C BCA, 31228-9, BMP, 96652-2 ####[facility] ([id number])[address], [address] [place] [address] Creatinine [Mass/Vol] 0.40 mg/dL Low 0.60-1.30 [facility] Comment on above: Result Comment: METH OD TRACEABLE TO IDMS STANDARD Performed By: #### C BCA, 03610-7, BMP, 23218-2 ####[facility] ([id number])[address] [address] eGFR (CKD-EPI) NON-RACE DEPENDENT >90 Normal >59 [facility] Comment on above: Result Comment: Repo rted eGFR is based on theCKD-EPI 2020 equation that doesnot use a race coefficient. Performed By: #### C BCA, 23571-8, BMP, ####[facility] ([id number])[address] [address] Glucose [Mass/Vol] 86 mg/dL Normal 65-99 [facility] Comment on above: Performed By: #### C BCA, 66852-1, BMP, 82263-8 ####[facility] ([id number])[address] [address] Potassium [Moles/Vol] 4.6 mmol/L Normal 3.5-5.0 [facility] Comment on above: Performed By: #### C BCA, 13750-2, BMP, 49331-5 ####[facility] ([id number])[address] [address] Sodium [Moles/Vol] 133 mmol/L Low 134-146 [facility] Comment on above: Performed By: #### C BCA, 99792-4, BMP, 67717-4 ####[facility] ([id number])[address] [address] Urea nitrogen [Mass/Vol] 8 mg/dL Normal 5-27 [facility] Comment on above: Performed By: #### C BCA, 06135-0, BMP, 60759-5 ####[facility] ([id number])[address] [address] CBC AND AUTO DIFFon 07-14-19 24 ABSOLUTE BASOPHIL 0.1 X10E9/L Normal 0.0-0.2 [facility] Comment on above: Performed By: #### C TALISHA, 82256-7, BMP, ####[facility] ([id number])[address], [address], [place] [address] ABSOLUTE NEUTROPHIL 12.8 X10E9/L High 1.5-6.6 [facility] Comment on above: Performed By: #### C TALISHA, 72977-1, BMP, ####[facility] ([id number])[address], [address], [place] [address] Basophils/100 WBC (Bld) 0.4 % Normal [facility] Comment on above: Performed By: #### C TALISHA, , BMP, ####[facility] ([id number])[address], [address], [place] [address] Eosinophils (Bld) [#/Vol] 0.0 10*3/uL Normal 0.0-0.4 [facility] Comment on above: Performed By: #### C TALISHA, , BMP, ####[facility] ([id number])[address], [address], [place] [address] Eosinophils/100 WBC (Bld) 0.3 % Normal [facility] Comment on above: Performed By: #### C TALISHA, 27350-6, BMP, ####[facility] ([id number])[address], [address], [place] [address] Erythrocyte distribution width (RBC) [Ratio] 17.4 % High 11.5-15.0 [facility] Comment on above: Performed By: #### C TALISHA, 18252-0, BMP, ####[facility] ([id number])[address], [address], [place] [address] Hematocrit (Bld) [Volume fraction] 32.9 % Low 39-49 [facility] Comment on above: Performed By: #### Bob WOODALL, 61430-4, BMP, ####[facility] ([id number])[address], [address], [place] [address] Hemoglobin (Bld) [Mass/Vol] 11.0 g/dL Low 13.0-17.0 [facility] Comment on above: Performed By: #### Bob WOODALL, 74789-7, BMP, ####[facility] ([id number])[address], [address] [place] [address] Lymphocytes (Bld) [#/Vol] 2.7 10*3/uL Normal 1.0-3.5 [facility] Comment on above: Performed By: #### Bob WOODALL, 20124-4, BMP, ####[facility] ([id number])[address], [address] [place] [address] Lymphocytes/100 WBC (Bld) 14.6 % Normal [facility] Comment on above: Performed By: #### Bob WOODALL, 22697-6, BMP, ####[facility] ([id number])[address], [address], [place] [address] MCH (RBC) [Entitic mass] 29.9 pg Normal 27-34 [facility] Comment on above: Performed By: #### Bob WOODALL, 55413-6, BMP, ####[facility] ([id number])[address], [address] [place] [address] MCHC (RBC) [Mass/Vol] 33.3 g/dL Normal 32-36 [facility] Comment on above: Performed By: #### Bob WOODALL, 72071-5, BMP, ####[facility] ([id number])[address], [address] [place] [address] MCV (RBC) [Entitic vol] 90 fL Normal 80-100 [facility] Comment on above: Performed By: #### Bob WOODALL, 60327-5, BMP, ####[facility] ([id number])[address], [address], [place] [address] Monocytes (Bld) [#/Vol] 2.9 10*3/uL High 0-0.9 [facility] Comment on above: Performed By: #### Bob WOODALL, 80759-7, BMP, ####[facility] ([id number])[address], [address] [place] [address] Monocytes/100 WBC (Bld) 15.8 % Normal [facility] Comment on above: Performed By: #### Bob WOODALL, 33022-6, BMP, ####[facility] ([id number])[address], [address], [place] [address] Neutrophils/100 WBC (Bld) 68.9 % Normal [facility] Comment on above: Performed By: #### Bob WOODALL, 70238-3, BMP, ####[facility] ([id number])[address], [address], [place] [address] OVALOCYTE 1+ Abnormal NONE [facility] Comment on above: Performed By: #### Bob WOODALL, 74953-3, BMP, ####[facility] ([id number])[address], [address] [place] [address] Platelet mean volume (Bld) [Entitic vol] 8.8 fL Normal 7-12 [facility] Comment on above: Performed By: #### Bob WOODALL, 39067-7, BMP, ####[facility] ([id number])[address], [address] [place] [address] Platelets (Bld) [#/Vol] 401 10*3/uL Normal 150-450 [facility] Comment on above: Performed By: #### C TALISHA, 41597-2, ISELA, ####[facility] ([id number])[address], [address] [place] [address] RBC COUNT 3.66 X10E12/L Low 4.10-5.70 [facility] Comment on above: Performed By: #### C TALISHA, 75644-2, ISELA, ####[facility] ([id number])[address] [address] WBC (Bld) [#/Vol] 18.6 10*3/uL High 4.0-11.0 [facility] Comment on above: Performed By: #### C TALISHA, 21517-5, ISELA, ####[facility] ([id number])[address] [address] [place] [address] HEMOGLOBINon 07-14-2023 Hemoglobin (Bld) [Mass/Vol] 11.0 g/dL Low 13.0-17.0 [facility] Comment on above: Performed By: #### 7 18-7, PLTCT, PINR ####[facility] ([id number])[address] [address] Heparin unfractionated Chrom ogenic method Qn (PPP)on 07-14-2023 ANTI XA UFH 0.33 IU/mL Normal 0.30-0.70 [facility] Comment on above: Result Comment: Opti mal time for testing is 6 hrs post dosageThis test is specific for monitoring patientson UFH, and is not recommended for use withother Anti-Xa medications. Performed By: #### 3 274-8, 23527-8 ####[facility] ([id number])[address] [address] MAGNESIUMon 07-14-2023 Magnesium [Mass/Vol] 2.0 mg/dL Normal 1.8-2.6 [facility] Comment on above: Performed By: #### 3 274-8, 70438-3 ####[facility] ([id number])[address], [address], [place] [address] Magnesium [Mass/Vol] 1.6 mg/dL Low 1.8-2.6 [facility] Comment on above: Performed By: #### C BCA, 95053-0, BMP, 52021-8 ####[facility] ([id number])[address], [address], [place] [address] PLATELET COUNT AND MPVon Platelet mean volume (Bld) [Entitic vol] 8.7 fL Normal 7-12 [facility] Comment on above: Performed By: #### 7 18-7, PLTCT, PINR ####[facility] ([id number])[address], [place] [address] Platelets (Bld) [#/Vol] 418 10*3/uL Normal 150-450 [facility] Comment on above: Performed By: #### 7 18-7, PLTCT, PINR ####[facility] ([id number])[address], [address], [place] [address] PROTIME AND INRon 07-14-2023 INR Coag (PPP) [Relative time] 1.4 {INR} High 0.8-1.1 [facility] Comment on above: Performed By: #### 7 18-7, PLTCT, PINR ####[facility] ([id number])[address], [address] [place] [address] PT Coag (PPP) [Time] 15.9 s High 9.8-13.2 [facility] Comment on above: Performed By: #### 7 18-7, PLTCT, PINR ####[facility] ([id number])[address], [address], [place] [address] QUANTIFERON TB GOLDon 2023 MITOGEN MINUS NIL 1.58 IU/mL Normal >=0.50 [facility] NIL RESULT 0.11 IU/mL Normal <=8.00 [facility] TB INTERPRETATION See below Normal [facility] Comment on above: Result Comment: NOTE Infection with M. tuberculosis complex is unlikely. If latenttuberculosis infection is highly suspected, a negative result doesnot rule out the infection. Specimens from immunocompromised patientsand those <5 years of age may show false negative results. In case ofa contact investigation, please repeat 8-12 weeks after a knownexposure. Test Performed By: [place] [address] Lard Mixer: Demond Jeff III, M.D. [facility] #[id number] TB RESULT Negative Normal [facility] TB1 AG MINUS NIL 0.00 IU/mL Normal <0.35 [facility] TB2 AG MINUS NIL 0.00 IU/mL Normal <0.35 [facility] aPTT Coag (PPP) [Time]on aPTT Coag (Bld) [Time] 46 s High 26-37 [facility] Comment on above: Performed By: #### C TALISHA, 09985-4, BMP, 36157-7 ####[facility] ([id number])[address], [address] [place] [address] BASIC METABOLIC PANLon 07-12 Anion gap [Moles/Vol] 6 mmol/L Normal 5-15 [facility] Comment on above: Performed By: #### C TALISHA, BMP, 75113-4 ####[facility] ([id number])[address], [address], [place] [address] Calcium [Mass/Vol] 7.9 mg/dL Low 8.5-10.5 [facility] Comment on above: Performed By: #### C BCA, BMP, ####[facility] ([id number])[address] [address] [place] [address] Chloride [Moles/Vol] 93 mmol/L Low 98-109 [facility] Comment on above: Performed By: #### C TALISHA [facility], ####[facility] ([id number])[address], [address] [place] [address] CO2 [Moles/Vol] 32 mmol/L Normal 22-32 [facility] Comment on above: Performed By: #### C TALISHA [facility], ####[facility] ([id number])[address] [address], [place] [address] Creatinine [Mass/Vol] 0.33 mg/dL Low 0.60-1.30 [facility] Comment on above: Result Comment: METH OD TRACEABLE TO IDMS STANDARD Performed By: #### C TALISHA [facility], ####[facility] ([id number])[address] [address], [place] [address] eGFR (CKD-EPI) NON-RACE DEPENDENT >90 Normal >59 [facility] Comment on above: Result Comment: Repo rted eGFR is based on theCKD-EPI 2020 equation that doesnot use a race coefficient. Performed By: #### C TALISHA [facility], ####[facility] ([id number])[address] [address] [place] [address] Glucose [Mass/Vol] 97 mg/dL Normal 65-99 [facility] Comment on above: Performed By: #### C TALISHA [facility], ####[facility] ([id number])[address] [address] [place] [address] Potassium [Moles/Vol] 4.1 mmol/L Normal 3.5-5.0 [facility] Comment on above: Performed By: #### C TALISHA BMP, ####[facility] ([id number])[address], [address] [place] [address] Sodium [Moles/Vol] 131 mmol/L Low 134-146 [facility] Comment on above: Performed By: #### C ISELA WOODALL, ####[facility] ([id number])[address], [address] [place] [address] Urea nitrogen [Mass/Vol] 8 mg/dL Normal 5-27 [facility] Comment on above: Performed By: #### C ISELA WOODALL, ####[facility] ([id number])[address], [address] [address] CBC AND AUTO DIFFon 07-13-19 24 ABSOLUTE BASOPHIL 0.1 X10E9/L Normal 0.0-0.2 [facility] Comment on above: Performed By: #### C TALISHA [facility], ####[facility] ([id number])[address] [address] [place] [address] ABSOLUTE NEUTROPHIL 13.5 X10E9/L High 1.5-6.6 [facility] Comment on above: Performed By: #### ISELA Rojas BCA, ####[facility] ([id number])[address] [address] Basophils/100 WBC (Bld) 0.4 % Normal [facility] Comment on above: Performed By: #### C TALISHA BMP, ####[facility] ([id number])[address] [address] Eosinophils (Bld) [#/Vol] 0.1 10*3/uL Normal 0.0-0.4 [facility] Comment on above: Performed By: #### Bob WOODALL BMP, ####[facility] ([id number])[address], [place] [address] Eosinophils/100 WBC (Bld) 0.4 % Normal [facility] Comment on above: Performed By: #### C TALISHA, BMP, ####[facility] ([id number])[address], [place] [address] Erythrocyte distribution width (RBC) [Ratio] 17.5 % High 11.5-15.0 [facility] Comment on above: Performed By: #### C TALISHA, BMP, ####[facility] ([id number])[address], [place] [address] Hematocrit (Bld) [Volume fraction] 32.0 % Low 39-49 [facility] Comment on above: Performed By: #### Bob WOODALL, BMP, ####[facility] ([id number])[address], [place] [address] Hemoglobin (Bld) [Mass/Vol] 10.5 g/dL Low 13.0-17.0 [facility] Comment on above: Performed By: #### Bob WOODALL, BMP, ####[facility] ([id number])[address] [address], [place] [address] Lymphocytes (Bld) [#/Vol] 2.2 10*3/uL Normal 1.0-3.5 [facility] Comment on above: Performed By: #### C TALISHA, BMP, ####[facility] ([id number])[address] [address], [place] [address] Lymphocytes/100 WBC (Bld) 11.4 % Normal [facility] Comment on above: Performed By: #### Bob WOODALL, BMP, ####[facility] ([id number])[address] [place] [address] MCH (RBC) [Entitic mass] 29.7 pg Normal 27-34 [facility] Comment on above: Performed By: #### ISELA Rojas BCA, ####[facility] ([id number])[address], [place] [address] MCHC (RBC) [Mass/Vol] 32.9 g/dL Normal 32-36 [facility] Comment on above: Performed By: #### ISELA Rojas BCA, ####[facility] ([id number])[address], [address] [place] [address] MCV (RBC) [Entitic vol] 90 fL Normal 80-100 [facility] Comment on above: Performed By: #### ISELA Rojas BCA, ####[facility] ([id number])[address], [address] [place] [address] Monocytes (Bld) [#/Vol] 3.3 10*3/uL High 0-0.9 [facility] Comment on above: Performed By: #### ISELA Rojas BCA, ####[facility] ([id number])[address], [address] [place] [address] Monocytes/100 WBC (Bld) 17.3 % Normal [facility] Comment on above: Performed By: #### ISELA Rojas BCA, ####[facility] ([id number])[address], [address] [place] [address] Neutrophils/100 WBC (Bld) 70.5 % Normal [facility] Comment on above: Performed By: #### ISELA Rojas BCA, ####[facility] ([id number])[address], [address] [place] [address] Platelet mean volume (Bld) [Entitic vol] 8.7 fL Normal 7-12 [facility] Comment on above: Performed By: #### ISELA Rojas BCA, ####[facility] ([id number])[address] [address] [place] [address] Platelets (Bld) [#/Vol] 379 10*3/uL Normal 150-450 [facility] Comment on above: Performed By: #### ISELA Rojas BCA, ####[facility] ([id number])[address], [address] [place] [address] RBC COUNT 3.55 X10E12/L Low 4.10-5.70 [facility] Comment on above: Performed By: #### ISELA Rojas BCA, ####[facility] ([id number])[address] [address] [place] [address] WBC (Bld) [#/Vol] 19.2 10*3/uL High 4.0-11.0 [facility] Comment on above: Performed By: #### ISELA Rojas BCA, ####[facility] ([id number])[address], [address] [address] ECG 12-Leadon 07-13-2023 ECG 12-Lead [id number]#1.00TIFF Normal [facility] MAGNESIUMon 07-13-2023 Magnesium [Mass/Vol] 1.8 mg/dL Normal 1.8-2.6 [facility] Comment on above: Performed By: #### ISELA Rojas BCA, ####[facility] ([id number])[address] [address] [place] [address] RAD - CT Reporton 07-13-2023 RAD - CT Report [id number]#1.00TIFF Normal [facility] RAD - MISCon 07-13-2023 RAD - MISC [id number]#1.00TIFF Normal [facility] aPTT Coag (PPP) [Time]on aPTT Coag (Bld) [Time] 70 s High 26-37 [facility] Comment on above: Performed By: #### 1 4979-9 ####[facility] ([id number])[address], [address], [place] [address] aPTT Coag (Bld) [Time] 71 s High 26-37 [facility] Comment on above: Performed By: #### 1 4979-9 ####[facility] ([id number])[address], [address], [place] [address] BASIC METABOLIC PANLon 07-11 Anion gap [Moles/Vol] 7 mmol/L Normal 5-15 [facility] Comment on above: Performed By: #### C BCA, BMP, , 84812-3 ####[facility] ([id number])[address], [address] [place] [address] Calcium [Mass/Vol] 8.4 mg/dL Low 8.5-10.5 [facility] Comment on above: Performed By: #### C BCA, BMP, , 39278-9 ####[facility] ([id number])[address], [address], [place] [address] Chloride [Moles/Vol] 91 mmol/L Low 98-109 [facility] Comment on above: Performed By: #### C BCA, BMP, , 95279-3 ####[facility] ([id number])[address], [address], [place] [address] CO2 [Moles/Vol] 36 mmol/L High 22-32 [facility] Comment on above: Performed By: #### C BCA, BMP, , 02257-1 ####[facility] ([id number])[address] [address], [place] [address] Creatinine [Mass/Vol] 0.46 mg/dL Low 0.60-1.30 [facility] Comment on above: Result Comment: METH OD TRACEABLE TO IDMS STANDARD Performed By: #### C BCA, BMP, , 15444-5 ####[facility] ([id number])[address] [address] eGFR (CKD-EPI) NON-RACE DEPENDENT >90 Normal >59 [facility] Comment on above: Result Comment: Repo rted eGFR is based on theCKD-EPI 2020 equation that doesnot use a race coefficient. Performed By: #### C BCA, BMP, , 32900-5 ####[facility] ([id number])[address] [address] Glucose [Mass/Vol] 105 mg/dL High 65-99 [facility] Comment on above: Performed By: #### C BCA, BMP, , 46943-8 ####[facility] ([id number])[address] [address] Potassium [Moles/Vol] 4.5 mmol/L Normal 3.5-5.0 [facility] Comment on above: Performed By: #### C BCA, BMP, , 58535-0 ####[facility] ([id number])[address] [address] Sodium [Moles/Vol] 134 mmol/L Normal 134-146 [facility] Comment on above: Performed By: #### C BCA, BMP, , 43420-3 ####[facility] ([id number])[address] [address] Urea nitrogen [Mass/Vol] 11 mg/dL Normal 5-27 [facility] Comment on above: Performed By: #### C BCA, BMP, , 10707-2 ####[facility] ([id number])[address], [address] [place] [address] CBC AND AUTO DIFFon 07-12-19 ABSOLUTE BASOPHIL 0.1 X10E9/L Normal 0.0-0.2 [facility] Comment on above: Performed By: #### C BCA, BMP, , 05284-0 ####[facility] ([id number])[address], [address] [place] [address] ABSOLUTE NEUTROPHIL 15.3 X10E9/L High 1.5-6.6 [facility] Comment on above: Performed By: #### C BCA, BMP, , 09841-5 ####[facility] ([id number])[address], [address], [place] [address] Basophils/100 WBC (Bld) 0.6 % Normal [facility] Comment on above: Performed By: #### C BCA, BMP, , 48382-3 ####[facility] ([id number])[address], [address] [place] [address] Eosinophils (Bld) [#/Vol] 0.0 10*3/uL Normal 0.0-0.4 [facility] Comment on above: Performed By: #### C BCA, BMP, , 11116-7 ####[facility] ([id number])[address], [address] [place] [address] Eosinophils/100 WBC (Bld) 0.1 % Normal [facility] Comment on above: Performed By: #### C BCA, BMP, , 15567-9 ####[facility] ([id number])[address], [address] [place] [address] Erythrocyte distribution width (RBC) [Ratio] 17.6 % High 11.5-15.0 [facility] Comment on above: Performed By: #### C TALISHA, BMP, , ####[facility] ([id number])[address] [address] [place] [address] Hematocrit (Bld) [Volume fraction] 34.8 % Low 39-49 [facility] Comment on above: Performed By: #### C TALISHA, BMP, , ####[facility] ([id number])[address] [address] [place] [address] Hemoglobin (Bld) [Mass/Vol] 11.5 g/dL Low 13.0-17.0 [facility] Comment on above: Performed By: #### C TALISHA, BMP, , ####[facility] ([id number])[address] [address] [place] [address] Lymphocytes (Bld) [#/Vol] 2.4 10*3/uL Normal 1.0-3.5 [facility] Comment on above: Performed By: #### C TALISHA, BMP, , 20368-9 ####[facility] ([id number])[address] [address] Lymphocytes/100 WBC (Bld) 11.2 % Normal [facility] Comment on above: Performed By: #### C BCA, BMP, , 29419-2 ####[facility] ([id number])[address] [address] MCH (RBC) [Entitic mass] 30.0 pg Normal 27-34 [facility] Comment on above: Performed By: #### C TALISHA, BMP, , ####[facility] ([id number])[address], [address], [place] [address] MCHC (RBC) [Mass/Vol] 33.1 g/dL Normal 32-36 [facility] Comment on above: Performed By: #### C BCA, BMP, 88463-0, 38150-3 ####[facility] ([id number])[address], [address], [place] [address] MCV (RBC) [Entitic vol] 91 fL Normal 80-100 [facility] Comment on above: Performed By: #### C BCA, BMP, , 17158-4 ####[facility] ([id number])[address] [address] [place] [address] Monocytes (Bld) [#/Vol] 3.7 10*3/uL High 0-0.9 [facility] Comment on above: Performed By: #### C BCA, BMP, , 73310-0 ####[facility] ([id number])[address] [address], [place] [address] Monocytes/100 WBC (Bld) 17.3 % Normal [facility] Comment on above: Performed By: #### C BCA, BMP, , 69779-9 ####[facility] ([id number])[address] [address] [place] [address] Neutrophils/100 WBC (Bld) 70.8 % Normal [facility] Comment on above: Performed By: #### C BCA, BMP, , 28394-5 ####[facility] ([id number])[address] [address], [place] [address] Platelet mean volume (Bld) [Entitic vol] 9.1 fL Normal 7-12 [facility] Comment on above: Performed By: #### C BCA, BMP, , 17706-9 ####[facility] ([id number])[address], [address], [place] [address] Platelets (Bld) [#/Vol] 389 10*3/uL Normal 150-450 [facility] Comment on above: Performed By: #### C BCA, BMP, , 41008-7 ####[facility] ([id number])[address], [address], [place] [address] RBC COUNT 3.84 X10E12/L Low 4.10-5.70 [facility] Comment on above: Performed By: #### C TALISHA, BMP, , 21323-1 ####[facility] ([id number])[address], [address] [place] [address] WBC (Bld) [#/Vol] 21.7 10*3/uL High 4.0-11.0 [facility] Comment on above: Performed By: #### C TALISHA, BMP, , 46257-0 ####[facility] ([id number])[address], [address], [place] [address] MAGNESIUMon 07-12-2023 Magnesium [Mass/Vol] 1.9 mg/dL Normal 1.8-2.6 [facility] Comment on above: Performed By: #### C TALISHA, BMP, , 39301-3 ####[facility] ([id number])[address], [address] [place] [address] Magnesium [Mass/Vol] 1.9 mg/dL Normal 1.8-2.6 [facility] Comment on above: Performed By: #### 2 823-3, , 27728-5 ####[facility] ([id number])[address], [address], [place] [address] POTASSIUMon 07-12-2023 Potassium [Moles/Vol] 4.2 mmol/L Normal 3.5-5.0 [facility] Comment on above: Performed By: #### 2 823-3, 53925-5, 78862-2 ####[facility] ([id number])[address], [address], [place] [address] aPTT Coag (PPP) [Time]on aPTT Coag (Bld) [Time] 96 s High [facility]37 [facility] Comment on above: Performed By: #### 1 4979-9 ####[facility] ([id number])[address], [address], [place] [address] aPTT Coag (Bld) [Time] 62 s High [facility]37 [facility] Comment on above: Performed By: #### 1 4979-9 ####[facility] ([id number])[address], [address], [place] [address] aPTT Coag (Bld) [Time] 86 s High [address] [place] [address] Comment on above: Performed By: #### C BCA, BMP, , 20007-6 ####[facility] ([id number])[address], [address], [place] [address] aPTT Coag (Bld) [Time] 72 s High [address] [place] [address] Comment on above: Performed By: #### 2 823-3, , 51124-9 ####[facility] ([id number])[address], [address], [place] [address] BASIC METABOLIC PANLon 07-10 Anion gap [Moles/Vol] 5 mmol/L Normal 5-15 [facility] Comment on above: Performed By: #### C BCA, BMP, , PINR, 54249-0 ####[facility] ([id number])[address], [address], [place] [address] Calcium [Mass/Vol] 8.1 mg/dL Low 8.5-10.5 [facility] Comment on above: Performed By: #### C BCA, BMP, , PINR, 55052-9 ####[facility] ([id number])[address], [address] [place] [address] Chloride [Moles/Vol] 90 mmol/L Low 98-109 [facility] Comment on above: Performed By: #### C BCA, BMP, , PINR, 23058-3 ####[facility] ([id number])[address], [address], [place] [address] CO2 [Moles/Vol] 35 mmol/L High 22-32 [facility] Comment on above: Performed By: #### C BCA, BMP, , PINR, 89049-8 ####[facility] ([id number])[address], [address], [place] [address] Creatinine [Mass/Vol] 0.36 mg/dL Low 0.60-1.30 [facility] Comment on above: Result Comment: METH OD TRACEABLE TO IDMS STANDARD Performed By: #### C BCA, BMP, , PINR, 75269-0 ####[facility] ([id number])[address], [address], [place] [address] eGFR (CKD-EPI) NON-RACE DEPENDENT >90 Normal >59 [facility] Comment on above: Result Comment: Repo rted eGFR is based on theCKD-EPI 2020 equation that doesnot use a race coefficient. Performed By: #### C BCA, BMP, , PINR, 92514-1 ####[facility] ([id number])[address], [address] [place] [address] Glucose [Mass/Vol] 97 mg/dL Normal 65-99 [facility] Comment on above: Performed By: #### C BCA, BMP, , PINR, 87305-5 ####[facility] ([id number])[address] [address], [place] [address] Potassium [Moles/Vol] 3.7 mmol/L Normal 3.5-5.0 [facility] Comment on above: Performed By: #### C BCA, BMP, , PINR, 08557-8 ####[facility] ([id number])[address] [address] [place] [address] Sodium [Moles/Vol] 130 mmol/L Low 134-146 [facility] Comment on above: Performed By: #### C BCA, BMP, , PINR, 07091-7 ####[facility] ([id number])[address] [address] [place] [address] Urea nitrogen [Mass/Vol] 13 mg/dL Normal 5-27 [facility] Comment on above: Performed By: #### C BCA, BMP, , PINR, 60158-4 ####[facility] ([id number])[address] [address] [place] [address] CBC AND AUTO DIFFon 07-11-19 24 Band form neutrophils/100 WBC (Bld) 1.0 % Normal [facility] Comment on above: Performed By: #### C BCA, BMP, , PINR, 50738-1 ####[facility] ([id number])[address] [address] [place] [address] Eosinophils (Bld) [#/Vol] 0.2 10*3/uL Normal 0.0-0.4 [facility] Comment on above: Performed By: #### C BCA, BMP, , PINR, 54983-3 ####[facility] ([id number])[address] [address] [place] [address] Eosinophils/100 WBC (Bld) 1.0 % Normal [facility] Comment on above: Performed By: #### C BCA, BMP, , PINR, 14121-8 ####[facility] ([id number])[address] [address] [place] [address] Erythrocyte distribution width (RBC) [Ratio] 17.5 % High 11.5-15.0 [facility] Comment on above: Performed By: #### C BCA, BMP, , PINR, 99658-3 ####[facility] ([id number])[address] [address] [place] [address] Hematocrit (Bld) [Volume fraction] 33.0 % Low 39-49 [facility] Comment on above: Performed By: #### C BCA, BMP, , PINR, 82880-5 ####[facility] ([id number])[address] [address] [place] [address] Hemoglobin (Bld) [Mass/Vol] 10.8 g/dL Low 13.0-17.0 [facility] Comment on above: Performed By: #### C BCA, BMP, , PINR, 01159-6 ####[facility] ([id number])[address] [address] LYMPHOCYTE, ATYPICAL 2.0 % Normal [facility] Comment on above: Performed By: #### C BCA, BMP, , PINR, 66880-4 ####[facility] ([id number])[address] [address] Lymphocytes (Bld) [#/Vol] 1.0 10*3/uL Normal 1.0-3.5 [facility] Comment on above: Performed By: #### C BCA, BMP, , PINR, 69122-2 ####[facility] ([id number])[address] [address] [place] [address] Lymphocytes/100 WBC (Bld) 3.0 % Normal [facility] Comment on above: Performed By: #### C BCA, BMP, , PINR, 94038-7 ####[facility] ([id number])[address], [address] [place] [address] MCH (RBC) [Entitic mass] 29.7 pg Normal 27-34 [facility] Comment on above: Performed By: #### C BCA, BMP, , PINR, 68298-2 ####[facility] ([id number])[address], [address] [place] [address] MCHC (RBC) [Mass/Vol] 32.7 g/dL Normal 32-36 [facility] Comment on above: Performed By: #### C BCA, BMP, , PINR, 94504-6 ####[facility] ([id number])[address] [address] [place] [address] MCV (RBC) [Entitic vol] 91 fL Normal 80-100 [facility] Comment on above: Performed By: #### C BCA, BMP, , PINR, 09328-6 ####[facility] ([id number])[address] [address] [place] [address] Metamyelocytes/100 WBC (Bld) 2.0 % Normal [facility] Comment on above: Performed By: #### C BCA, BMP, , PINR, 34875-8 ####[facility] ([id number])[address] [address] Monocytes (Bld) [#/Vol] 1.9 10*3/uL High 0-0.9 [facility] Comment on above: Performed By: #### C BCA, BMP, , PINR, 77493-1 ####[facility] ([id number])[address], [address], [place] [address] Monocytes/100 WBC (Bld) 9.0 % Normal [facility] Comment on above: Performed By: #### C BCA, BMP, 60350-6, PINR, 18008-6 ####[facility] ([id number])[address], [place] [address] MYELOCYTE 2.0 % Normal [facility] Comment on above: Performed By: #### C BCA, BMP, , PINR, 26482-4 ####[facility] ([id number])[address], [address] [place] [address] Neutrophils (Bld) [#/Vol] 17.1 10*3/uL High 1.5-6.6 [facility] Comment on above: Performed By: #### C BCA, BMP, , PINR, 59157-3 ####[facility] ([id number])[address], [address], [place] [address] Platelet mean volume (Bld) [Entitic vol] 9.1 fL Normal 7-12 [facility] Comment on above: Performed By: #### C BCA, BMP, , PINR, 13262-2 ####[facility] ([id number])[address], [address], [place] [address] Platelets (Bld) [#/Vol] 373 10*3/uL Normal 150-450 [facility] Comment on above: Performed By: #### C BCA, BMP, , PINR, 44055-6 ####[facility] ([id number])[address] [place] [address] POLYCHROMASIA 1+ Abnormal NONE [facility] Comment on above: Performed By: #### C BCA, BMP, 92142-8, PINR, 05676-3 ####[facility] ([id number])[address] [place] [address] RBC COUNT 3.64 X10E12/L Low 4.10-5.70 [facility] Comment on above: Performed By: #### C BCA, BMP, , PINR, 63001-1 ####[facility] ([id number])[address], [place] [address] SEG NEUTROPHIL 80.0 % Normal [facility] Comment on above: Performed By: #### C BCA, BMP, , PINR, 49457-5 ####[facility] ([id number])[address], [address], [place] [address] STOMATOCYTE 1+ Abnormal NONE [facility] Comment on above: Performed By: #### C BCA, BMP, , PINR, 19628-7 ####[facility] ([id number])[address], [address], [place] [address] WBC (Bld) [#/Vol] 21.0 10*3/uL High 4.0-11.0 [facility] Comment on above: Performed By: #### C BCA, BMP, , PINR, 13954-8 ####[facility] ([id number])[address], [address], [place] [address] MAGNESIUMon 07-11-2023 Magnesium [Mass/Vol] 1.9 mg/dL Normal 1.8-2.6 [facility] Comment on above: Performed By: #### C BCA, BMP, , PINR, 39261-4 ####[facility] ([id number])[address], [address], [place] [address] POTASSIUMon 07-11-2023 Potassium [Moles/Vol] 4.3 mmol/L Normal 3.5-5.0 [facility] Comment on above: Performed By: #### 1 4979-9, 2823-3 ####[facility] ([id number])[address] [place] [address] PROTIME AND INRon 07-11-2023 INR Coag (PPP) [Relative time] 1.7 {INR} High 0.8-1.1 [facility] Comment on above: Performed By: #### C BCA, BMP, , PINR, 49123-5 ####[facility] ([id number])[address] [place] [address] PT Coag (PPP) [Time] 19.3 s High 9.8-13.2 [facility] Comment on above: Performed By: #### C BCA, BMP, , PINR, 19989-3 ####[facility] ([id number])[address] [place] [address] aPTT Coag (PPP) [Time]on aPTT Coag (Bld) [Time] 88 s High 26-37 [facility] aPTT Coag (Bld) [Time] 58 s High 26-37 [facility] Comment on above: Performed By: #### C BCA, BMP, , PINR, 73121-1 ####[facility] ([id number])[address] [place] [address] aPTT Coag (Bld) [Time] 78 s High 26-37 [facility] Comment on above: Performed By: #### 1 4979-9, 2823-3 ####[facility] ([id number])[address], [address], [place] [address] BASIC METABOLIC PANLon 07-09 Anion gap [Moles/Vol] 8 mmol/L Normal 5-15 [facility] Comment on above: Performed By: #### C BCA, BMP, 17226-7, PINR, 07642-8, LIVR ####[facility] ([id number])[address], [address], [place] [address] Calcium [Mass/Vol] 8.0 mg/dL Low 8.5-10.5 [facility] Comment on above: Performed By: #### C BCA, BMP, 43091-4, PINR, 51695-0, LIVR ####[facility] ([id number])[address], [address], [place] [address] Chloride [Moles/Vol] 87 mmol/L Low 98-109 [facility] Comment on above: Performed By: #### C BCA, BMP, 94905-3, PINR, 61652-0, LIVR ####[facility] ([id number])[address], [address] [place] [address] CO2 [Moles/Vol] 38 mmol/L High 22-32 [facility] Comment on above: Performed By: #### C BCA, BMP, 43791-8, PINR, 13416-9, LIVR ####[facility] ([id number])[address] [address] [place] [address] Creatinine [Mass/Vol] 0.52 mg/dL Low 0.60-1.30 [facility] Comment on above: Result Comment: METH OD TRACEABLE TO IDMS STANDARD Performed By: #### C BCA, BMP, 17478-1, PINR, 21534-6, LIVR ####[facility] ([id number])[address], [address] [place] [address] eGFR (CKD-EPI) NON-RACE DEPENDENT >90 Normal >59 [facility] Comment on above: Result Comment: Repo rted eGFR is based on theCKD-EPI 2020 equation that doesnot use a race coefficient. Performed By: #### C BCA, BMP, 80617-8, PINR, 61247-0, LIVR ####[facility] ([id number])[address], [address], [place] [address] Glucose [Mass/Vol] 102 mg/dL High 65-99 [facility] Comment on above: Performed By: #### C BCA, BMP, 27729-8, PINR, 15803-1, LIVR ####[facility] ([id number])[address], [address] [place] [address] Potassium [Moles/Vol] 3.6 mmol/L Normal 3.5-5.0 [facility] Comment on above: Performed By: #### C BCA, BMP, 72635-9, PINR, 89435-6, LIVR ####[facility] ([id number])[address], [address] [place] [address] Sodium [Moles/Vol] 133 mmol/L Low 134-146 [facility] Comment on above: Performed By: #### C BCA, BMP, 71461-8, PINR, 35207-1, LIVR ####[facility] ([id number])[address] [address] [place] [address] Urea nitrogen [Mass/Vol] 15 mg/dL Normal 5-27 [facility] Comment on above: Performed By: #### C BCA, BMP, 18914-9, PINR, 09663-2, LIVR ####[facility] ([id number])[address], [address] [place] [address] CBC AND AUTO DIFFon 07-10-19 24 ABSOLUTE BASOPHIL 0.1 X10E9/L Normal 0.0-0.2 [facility] Comment on above: Performed By: #### C BCA, BMP, 13820-2, PINR, 95472-2, LIVR ####[facility] ([id number])2130 [facility] [address] [place] [address] 15952 ABSOLUTE NEUTROPHIL 17.8 X10E9/L High 1.5-6.6 [facility] Comment on above: Performed By: #### C BCA, BMP, 87332-6, PINR, 03474-8, LIVR ####[facility] ([id number])[address], [address] [place] [address] 28365 Basophils/100 WBC (Bld) 0.2 % Normal [facility] Comment on above: Performed By: #### C BCA, BMP, , PINR, 84359-9, LIVR ####[facility] ([id number])[address], [address] [place] [address] 04857 Eosinophils (Bld) [#/Vol] 0.0 10*3/uL Normal 0.0-0.4 [facility] Comment on above: Performed By: #### C BCA, BMP, , PINR, 30999-8, LIVR ####[facility] ([id number])[address] [facility] [address] [place] [address] 27717 Eosinophils/100 WBC (Bld) 0.1 % Normal [facility] Comment on above: Performed By: #### C BCA, BMP, , PINR, 50806-2, LIVR ####[facility] ([id number])[address] [facility] [address] [place] [address] 23349 Erythrocyte distribution width (RBC) [Ratio] 17.3 % High 11.5-15.0 [facility] Comment on above: Performed By: #### C BCA, BMP, 72170-2, PINR, 26940-4, LIVR ####[facility] ([id number])[address], [address] [place] [address] 98507 Hematocrit (Bld) [Volume fraction] 35.2 % Low 39-49 [facility] Comment on above: Performed By: #### C BCA, BMP, 91146-5, PINR, 27669-0, LIVR ####[facility] ([id number])[address], [address], [place] [address] Hemoglobin (Bld) [Mass/Vol] 11.5 g/dL Low 13.0-17.0 [facility] Comment on above: Performed By: #### C BCA, BMP, 79270-1, PINR, 25421-6, LIVR ####[facility] ([id number])[address], [address] [place] [address] 30132 Lymphocytes (Bld) [#/Vol] 2.9 10*3/uL Normal 1.0-3.5 [facility] Comment on above: Performed By: #### C BCA, BMP, 72762-1, PINR, 53436-3, LIVR ####[facility] ([id number])[address] [facility] [address] [place] [address] 98942 Lymphocytes/100 WBC (Bld) 11.9 % Normal [facility] Comment on above: Performed By: #### C BCA, BMP, 54379-9, PINR, 53807-3, LIVR ####[facility] ([id number])[address] [facility] [address] [place] [address] 19810 MCH (RBC) [Entitic mass] 29.7 pg Normal 27-34 [facility] Comment on above: Performed By: #### C BCA, BMP, 33048-2, PINR, 66514-5, LIVR ####[facility] ([id number])[address] [facility] [address], [place] [address] MCHC (RBC) [Mass/Vol] 32.6 g/dL Normal 32-36 [facility] Comment on above: Performed By: #### C BCA, BMP, 13888-4, PINR, 22514-1, LIVR ####[facility] ([id number])[address] [facility] [address] [place] [address] 49616 MCV (RBC) [Entitic vol] 91 fL Normal 80-100 [facility] Comment on above: Performed By: #### C BCA, BMP, 90769-4, PINR, 14039-4, LIVR ####[facility] ([id number])[address], [address], [place] [address] Monocytes (Bld) [#/Vol] 3.9 10*3/uL High 0-0.9 [facility] Comment on above: Performed By: #### C BCA, BMP, 89798-4, PINR, 52114-1, LIVR ####[facility] ([id number])[address], [address], [place] [address] Monocytes/100 WBC (Bld) 15.6 % Normal [facility] Comment on above: Performed By: #### C BCA, BMP, 29381-9, PINR, 60642-8, LIVR ####[facility] ([id number])[address], [address], [place] [address] Neutrophils/100 WBC (Bld) 72.2 % Normal [facility] Comment on above: Performed By: #### C BCA, BMP, 90893-6, PINR, 58417-2, LIVR ####[facility] ([id number])[address], [address], [place] [address] Platelet mean volume (Bld) [Entitic vol] 9.3 fL Normal 7-12 [facility] Comment on above: Performed By: #### C BCA, BMP, 76859-8, PINR, 00460-9, LIVR ####[facility] ([id number])[address], [address] [place] [address] 89454 Platelets (Bld) [#/Vol] 384 10*3/uL Normal 150-450 [facility] Comment on above: Performed By: #### C BCA, BMP, 69364-9, PINR, 55353-3, LIVR ####[facility] ([id number])[address], [address], [place] [address] RBC COUNT 3.87 X10E12/L Low 4.10-5.70 [facility] Comment on above: Performed By: #### C BCA, BMP, , PINR, 04999-4, LIVR ####[facility] ([id number])[address], [address] [place] [address] 54040 WBC (Bld) [#/Vol] 24.7 10*3/uL High 4.0-11.0 [facility] Comment on above: Performed By: #### C BCA, BMP, , PINR, 12542-7, LIVR ####[facility] ([id number])[address], [address] [place] [address] 68954 Flow cytometry specialist re view Nasir (Unsp spec) [Interp]on 07-10-2023 FLOW CYTOMETRY TISSUE/FLUID, NON CSF/NON BAL SEE SEPARATE REPORT Normal [facility] Comment on above: Result Comment: REVI EWED BY DEREK MARTINEZ M.D. Performed By: #### 6 9052-9 ####[facility] ([id number])[address], [address] [place] [address] 88795 IR BIOPSY LYMPH NODEon 07-09 IR BIOPSY LYMPH NODE Normal [facility] LIVER PANELon 07-10-2023 Albumin [Mass/Vol] 2.3 g/dL Low 3.2-5.3 [facility] Comment on above: Performed By: #### C BCA, BMP, , PINR, 66757-8, LIVR ####[facility] ([id number])[address], [address] [place] [address] 72555 ALP [Catalytic activity/Vol] 132 U/L High 39-130 [facility] Comment on above: Performed By: #### C BCA, BMP, , PINR, 38081-1, LIVR ####[facility] ([id number])[address], [address], [place] [address] ALT [Catalytic activity/Vol] 35 U/L Normal 0-40 [facility] Comment on above: Performed By: #### C BCA, BMP, 83347-8, PINR, 14348-7, LIVR ####[facility] ([id number])[address], [address], [place] [address] AST [Catalytic activity/Vol] 22 U/L Normal 0-41 [facility] Comment on above: Performed By: #### C BCA, BMP, 88793-9, PINR, 55489-5, LIVR ####[facility] ([id number])[address] [facility] [address], [place] [address] Bilirubin [Mass/Vol] 0.8 mg/dL Normal 0.3-1.2 [facility] Comment on above: Performed By: #### C BCA, BMP, 96155-6, PINR, 59383-1, LIVR ####[facility] ([id number])[address] [facility] [address] [place] [address] 27789 Bilirubin.direct [Mass/Vol] 0.4 mg/dL Normal 0.0-0.4 [facility] Comment on above: Performed By: #### C BCA, BMP, 60068-2, PINR, 52035-6, LIVR ####[facility] ([id number])[address] [facility] [address] [place] [address], [place] [address] Protein [Mass/Vol] 5.4 g/dL Low 6.0-8.0 [facility] Comment on above: Performed By: #### C BCA, BMP, 16685-2, PINR, 28180-5, LIVR ####[facility] ([id number])[address], [address], [place] [address] MAGNESIUMon 04-12-2024 Magnesium [Mass/Vol] 2.0 mg/dL Normal 1.8-2.6 [facility] Comment on above: Performed By: #### C BCA, BMP, 70724-4, PINR, 84171-2, LIVR ####[facility] ([id number])[address], [address], [place] [address] PROTIME AND INRon 07-10-2023 INR Coag (PPP) [Relative time] 1.6 {INR} High 0.8-1.1 [facility] Comment on above: Performed By: #### C BCA, BMP, 27137-1, PINR, 70925-4, LIVR ####[facility] ([id number])[address], [address], [place] [address] PT Coag (PPP) [Time] 18.8 s High 9.8-13.2 [facility] Comment on above: Performed By: #### C BCA, BMP, 02259-4, PINR, 01889-7, LIVR ####[facility] ([id number])[address], [address] [place] [address] 66790 Surgical Pathologyon 024 Surgical Pathology Normal [facility] Comment on above: Result Comment: [facility] [address] [place] [address] Surgical Pathology ConsultationPatient Name:YOBANYTORSTEN:1955 (Age: 67)Gender:MTaken:4Reported:07/22/2023hysician(s):Brandon Banuelos M.D. ([phone])Copy To:Jose Enrique AshbyAccession #:[id number]. Rec. #:[id number]: #[id number] Pathologic DiagnosisLymph node, left retroperitoneal, needle biopsy ([id number]; 07/10/2023): Classic Hodgkin lymphoma. See comment.Morphologically, there are multiple slender cores of tissue showing a fairly prominent population of large atypical lymphoid cells with irregular nuclear contours, moderate to prominent nucleoli, and ample cytoplasm. A subset of the cells have a multilobed appearance, and a few of them appear lacunar. They are accompanied by a mixed population of small lymphocytes, eosinophils, and histiocytes. Focal fibrotic bands are present, and in some areas, there is a nodular appearance.Flow cytometric immunophenotyping, per submitted report: Sparse lymphocytes comprised of a predominance of phenotypically unremarkable T-cells and very few B-cells. No monoclonal lymphoid population is detected. Immunoperoxidase stains were performed on paraffin sections of the lymph node biopsy (block A) at the referring institution (CD3, CD5, CD10, CD15, CD20, CD30, CD45, and PAX5) and at [facility] in [place], [place] (CD2, CD4, CD7, CD8, CD15, CD30, CD45, GATA3, and PAX5).Independent verification of results: Some of the immunoperoxidase stains were repeated in this case. It was the principal consultant's opinion that certain stains critical to the diagnosis had to be repeated in the [facility] immunohistochemistry laboratory to verify the results observed in the submitted slides.The large atypical cells are positive for CD15, CD30, GATA3, and PAX5, and are negative for all other markers tested. The background small T-cells are positive for CD2, CD3, CD5, and CD7 and have a normal CD4:CD8 ratio.Submitted in situ hybridization studies for EBV (MAGAN), lymph node biopsy (block A), were reviewed. The large atypical cells are diffusely EBV-positive.Comment: The patient's history of a right hilar mass, liver lesions, and bulky retroperitoneal lymphadenopathy is noted. The morphologic and immunophenotypic features support a diagnosis of classic Hodgkin lymphoma. Overall, a classification of nodular sclerosis type is favored, but it is difficult to determine this with certainty on a small needle biopsy specimen. Clinical pathologic correlation is recommended.A comprehensive consult with review of records that included clinical notes and laboratory results was performed to assist in the diagnostic assessment of the case.NOTE: The above diagnosis and comment is that of Brittney Elizondo M.D., [facility], [place], [place]. Please see the complete report in the patient's EMR. Report Electronically Signed Outwrc/07/22/2023Derek Shah MD Flow Cytometry-Surg/BM/NG Date Reported: 07/22/2023Immunophenotypic analysis of the retroperitoneal node leukocytes demonstrates sparse lymphocytes comprised of a predominance of phenotypically unremarkable T-cells and very few B-cells. No monoclonal lymphoid population is detected.Immunophenotyping antibodies tested: CD3, CD5, CD7, CD10, CD19, CD20, CD23, CD45, [place], and Lambda.Immunophenotyping Comment:Immunophenotyping has been used in this diagnostic evaluation. This test was developed and its performance characteristics determined by the [facility] Department. It has not been cleared or approved by the U.S. Food and Drug Administration. The FDA has determined that such clearance or approval is not necessary. This test is used for clinical purposes. It should not be regarded as investigational or for research. This laboratory is certified under the Clinical Laboratory Improvement Amendments of 1988 ( CLIA ) as qualified to perform high-complexity clinical testing.Electronically Signed OutDerek Martinez MD Preliminary Report (PHS) Date Reported: 07/16/2023Left retroperitoneal lymph node, CT-guided core biopsy: Lymphoid neoplasm. Final diagnosis pending outside consultation at [facility].Comment: The differential diagnosis would include Hodgkin lymphoma and T-cell lymphoma. Final diagnosis is pending consultation at [facility].Electronically Signed OutDerek Shah MDInterpretation performed at [facility], [address] [place] [address], License number: [id number].Clinical HistoryRight hilar mass, liver lesions and bulky retroperineal LAD, concern for metastatic disease vs. lymphoma, prefer LN.Gross Description Received in formalin labeled YOBANY, left lymph node are three njpf-qsn-jlwp toro delicate needle core segments of soft tissue, 1.0, 1.2, and 1.7 cm in length. The specimens are submitted entirely in a single cassette. Received in translucent, watery solution is a zcgr-fpn-nqmn toro delicate needle core segment of soft tissue, 1.2 cm in length. The specimen is submitted entirely in RPMI media to flow cytometry. (1, ns, [id number], m6) JKHjk07/10/2023GRSpecimen(s) Received Left lymph nodeFee Codes(s):1; 75918, 46633, 30724(7), 41550-AL, 63087 aPTT Coag (PPP) [Time]on aPTT Coag (Bld) [Time] 72 s High 26-37 [facility] Comment on above: Performed By: #### C BCA, BMP, , PINR, 91009-8, LIVR ####[facility] ([id number])[address], [address] [place] [address] 57220 BASIC METABOLIC PANLon 07-08 Anion gap [Moles/Vol] 7 mmol/L Normal 5-15 [facility] Comment on above: Performed By: #### P INR, 54210-9, BMP, CBCA, ####[facility] ([id number])[address], [address], [place] [address] Calcium [Mass/Vol] 8.0 mg/dL Low 8.5-10.5 [facility] Comment on above: Performed By: #### P INR, 45245-8, BMP, CBCA, ####[facility] ([id number])[address], [address] [place] [address] 97236 Chloride [Moles/Vol] 92 mmol/L Low 98-109 [facility] Comment on above: Performed By: #### P INR, 91697-6, BMP, CBCA, 21252-9 ####[facility] ([id number])[address] [facility] [address], [place] [address] CO2 [Moles/Vol] 33 mmol/L High 22-32 [facility] Comment on above: Performed By: #### P INR, 94841-1, BMP, CBCA, 55788-5 ####[facility] ([id number])[address] [facility] [address] [place] [address] 19038 Creatinine [Mass/Vol] 0.46 mg/dL Low 0.60-1.30 [facility] Comment on above: Result Comment: METH OD TRACEABLE TO IDMS STANDARD Performed By: #### P INR, 88335-4, BMP, CBCA, 97244-5 ####[facility] ([id number])[address] [facility] [address] [place] [address] 26698 eGFR (CKD-EPI) NON-RACE DEPENDENT >90 Normal >59 [facility] Comment on above: Result Comment: Repo rted eGFR is based on theCKD-EPI 2020 equation that doesnot use a race coefficient. Performed By: #### P INR, 89959-8, BMP, CBCA, ####[facility] ([id number])[address] [facility] [address], [place] [address] Glucose [Mass/Vol] 113 mg/dL High 65-99 [facility] Comment on above: Performed By: #### P INR, 94838-1, BMP, CBCA, 33281-9 ####[facility] ([id number])[address] [facility] [address], [place] [address] Potassium [Moles/Vol] 3.9 mmol/L Normal 3.5-5.0 [facility] Comment on above: Performed By: #### P INR, 38301-7, BMP, CBCA, ####[facility] ([id number])[address], [address] [place] [address] 42774 Sodium [Moles/Vol] 132 mmol/L Low 134-146 [facility] Comment on above: Performed By: #### P INR, 90425-7, BMP, CBCA, ####[facility] ([id number])[address], [address] [place] [address] 69206 Urea nitrogen [Mass/Vol] 20 mg/dL Normal 5-27 [facility] Comment on above: Performed By: #### P INR, 04043-1, BMP, CBCA, ####[facility] ([id number])0 [facility] [address] [place] [address] 57220 CBC AND AUTO DIFFon 07-09-19 24 JENY 1+ Abnormal NONE [facility] Comment on above: Performed By: #### P INR, 70963-7, BMP, CBCA, ####[facility] ([id number])[address] [address] Eosinophils (Bld) [#/Vol] 0.3 10*3/uL Normal 0.0-0.4 [facility] Comment on above: Performed By: #### P INR, 35909-3, BMP, CBCA, ####[facility] ([id number])[address] [address] Eosinophils/100 WBC (Bld) 1.0 % Normal [facility] Comment on above: Performed By: #### P INR, 91092-0, BMP, CBCA, ####[facility] ([id number])[address] [facility] [address] [place] [address] 88078 Erythrocyte distribution width (RBC) [Ratio] 17.2 % High 11.5-15.0 [facility] Comment on above: Performed By: #### P INR, 25641-4, BMP, CBCA, ####[facility] ([id number])[address], [address], [place] [address] Hematocrit (Bld) [Volume fraction] 37.0 % Low 39-49 [facility] Comment on above: Performed By: #### P INR, 42593-3, BMP, CBCA, ####[facility] ([id number])[address], [address] [place] [address] 36295 Hemoglobin (Bld) [Mass/Vol] 12.2 g/dL Low 13.0-17.0 [facility] Comment on above: Performed By: #### P INR, 63073-1, BMP, CBCA, ####[facility] ([id number])0 [facility] [address] [place] [address] 71300 Lymphocytes (Bld) [#/Vol] 2.1 10*3/uL Normal 1.0-3.5 [facility] Comment on above: Performed By: #### P INR, 37200-7, BMP, CBCA, ####[facility] ([id number])[address] [facility] [address] [place] [address] 88166 Lymphocytes/100 WBC (Bld) 7.0 % Normal [facility] Comment on above: Performed By: #### P INR, 23951-9, BMP, CBCA, ####[facility] ([id number])[address] [facility] [address] [place] [address] 95006 MCH (RBC) [Entitic mass] 29.6 pg Normal 27-34 [facility] Comment on above: Performed By: #### P INR, 79183-0, BMP, CBCA, ####[facility] ([id number])[address] [facility] [address] [place] [address] 66405 MCHC (RBC) [Mass/Vol] 33.0 g/dL Normal 32-36 [facility] Comment on above: Performed By: #### P INR, 49886-9, BMP, CBCA, ####[facility] ([id number])[address], [address], [place] [address] MCV (RBC) [Entitic vol] 90 fL Normal 80-100 [facility] Comment on above: Performed By: #### P INR, 59456-4, BMP, CBCA, ####[facility] ([id number])[address], [address] [place] [address] 62000 Monocytes (Bld) [#/Vol] 3.1 10*3/uL High 0-0.9 [facility] Comment on above: Performed By: #### P INR, 45658-0, BMP, CBCA, ####[facility] ([id number])[address], [address], [place] [address] Monocytes/100 WBC (Bld) 10.0 % Normal [facility] Comment on above: Performed By: #### P INR, 20964-3, BMP, CBCA, ####[facility] ([id number])[address], [address] [place] [address] 16389 Neutrophils (Bld) [#/Vol] 25.1 10*3/uL High 1.5-6.6 [facility] Comment on above: Performed By: #### P INR, 82387-2, BMP, CBCA, ####[facility] ([id number])[address], [address], [place] [address] Platelet mean volume (Bld) [Entitic vol] 9.1 fL Normal 7-12 [facility] Comment on above: Performed By: #### P INR, 07822-3, BMP, CBCA, ####[facility] ([id number])[address] [facility] [address] [place] [address] 93615 Platelets (Bld) [#/Vol] 366 10*3/uL Normal 150-450 [facility] Comment on above: Performed By: #### P INR, 93488-0, BMP, CBCA, 82695-0 ####[facility] ([id number])[address] [facility] [address] [place] [address] 23562 RBC COUNT 4.12 X10E12/L Normal 4.10-5.70 [facility] Comment on above: Performed By: #### P INR, 85625-4, BMP, CBCA, 94063-9 ####[facility] ([id number])[address] [address] SEG NEUTROPHIL 82.0 % Normal [facility] Comment on above: Performed By: #### P INR, 92845-4, BMP, CBCA, 09959-3 ####[facility] ([id number])[address] [address] WBC (Bld) [#/Vol] 30.6 10*3/uL High 4.0-11.0 [facility] Comment on above: Performed By: #### P INR, 28382-8, BMP, CBCA, 94291-0 ####[facility] ([id number])[address] [address] LOWER RESPIRATORY CULTUREon 07-09-2023 Bacteria identified Respiratory culture Nom (Sput) GRAM STAIN >25 SQUAMOUS EPITHELIAL CELLS/LPF WITH MIXED BACTERIAL TYPES SEEN. REGARDED SALIVA NOT SPUTUM. CULTURE RESULTS CULTURE CANCELLED. SPECIMEN DOES NOT MEET CRITERIA FOR CULTURING. PLEASE REORDER AND RESUBMIT. Normal [facility] Comment on above: Performed By: #### 6 24-7 ####[facility] ([id number])[address] [address] MAGNESIUMon 07-09-2023 Magnesium [Mass/Vol] 2.0 mg/dL Normal 1.8-2.6 [facility] Comment on above: Performed By: #### 1 4979-9, 63245-7 ####[facility] ([id number])[address], [place] [address] Magnesium [Mass/Vol] 1.9 mg/dL Normal 1.8-2.6 [facility] Comment on above: Performed By: #### P INR, 86499-4, BMP, CBCA, 57759-5 ####[facility] ([id number])[address], [address] [place] [address] 76367 PROTIME AND INRon 07-09-2023 INR Coag (PPP) [Relative time] 1.8 {INR} High 0.8-1.1 [facility] Comment on above: Performed By: #### P INR, 40979-0, BMP, CBCA, 36272-7 ####[facility] ([id number])[address], [place] [address] PT Coag (PPP) [Time] 20.1 s High 9.8-13.2 [facility] Comment on above: Performed By: #### P INR, 04429-8, BMP, CBCA, 36304-2 ####[facility] ([id number])[address], [address] [place] [address] 18293 XR CHEST 1 VWon 07-09-2023 XR CHEST 1 VW Normal [facility] aPTT Coag (PPP) [Time]on aPTT Coag (Bld) [Time] 58 s High 26-37 [facility] Comment on above: Performed By: #### 1 4979-9, 12651-0 ####[facility] ([id number])[address], [place] [address] aPTT Coag (Bld) [Time] 67 s High 26-37 [facility] Comment on above: Performed By: #### 1 4979-9 ####[facility] ([id number])[address] [place] [address] aPTT Coag (Bld) [Time] 56 s High 26-37 [facility] Comment on above: Performed By: #### P INR, 52148-1, BMP, CBCA, 81144-0 ####[facility] ([id number])[address] [address] BASIC METABOLIC PANLon 07-07 Anion gap [Moles/Vol] 9 mmol/L Normal 5-15 [facility] Comment on above: Performed By: #### P INR, CBCA, BMP ####[facility] ([id number])[address] [place] [address] Calcium [Mass/Vol] 9.0 mg/dL Normal 8.5-10.5 [facility] Comment on above: Performed By: #### P INR, CBCA, BMP ####[facility] ([id number])[address] [address] Chloride [Moles/Vol] 88 mmol/L Low 98-109 [facility] Comment on above: Performed By: #### P INR, CBCA, BMP ####[facility] ([id number])[address] [place] [address] CO2 [Moles/Vol] 35 mmol/L High 22-32 [facility] Comment on above: Performed By: #### P INR, CBCA, BMP ####[facility] ([id number])[address] [place] [address] Creatinine [Mass/Vol] 0.55 mg/dL Low 0.60-1.30 [facility] Comment on above: Result Comment: METH OD TRACEABLE TO IDMS STANDARD Performed By: #### P INR, CBCA, BMP ####[facility] ([id number])[address] [address] eGFR (CKD-EPI) NON-RACE DEPENDENT >90 Normal >59 [facility] Comment on above: Result Comment: Repo rted eGFR is based on theCKD-EPI 2020 equation that doesnot use a race coefficient. Performed By: #### P INR, CBCA, BMP ####[facility] ([id number])[address] [address] Glucose [Mass/Vol] 124 mg/dL High 65-99 [facility] Comment on above: Performed By: #### P INR, CBCA, BMP ####[facility] ([id number])[address] [address] Potassium [Moles/Vol] 3.6 mmol/L Normal 3.5-5.0 [facility] Comment on above: Performed By: #### P INR, CBCA, BMP ####[facility] ([id number])[address] [address] Sodium [Moles/Vol] 132 mmol/L Low 134-146 [facility] Comment on above: Performed By: #### P INR, CBCA, BMP ####[facility] ([id number])[address] [address] Urea nitrogen [Mass/Vol] 25 mg/dL Normal 5-27 [facility] Comment on above: Performed By: #### P INR, CBCA, BMP ####[facility] ([id number])[address] [address] CBC AND AUTO DIFFon 1020 24 Band form neutrophils/100 WBC (Bld) 1.0 % Normal [facility] Comment on above: Performed By: #### P INR, CBCA, BMP ####[facility] ([id number])0 [address] [address] [place] [address] Erythrocyte distribution width (RBC) [Ratio] 17.0 % High 11.5-15.0 [facility] Comment on above: Performed By: #### P INR, CBCA, BMP ####[facility] ([id number])0 [address] [address] [place] [address] Hematocrit (Bld) [Volume fraction] 38.9 % Low 39-49 [facility] Comment on above: Performed By: #### P INR, CBCA, BMP ####[facility] ([id number])[address] [address] Hemoglobin (Bld) [Mass/Vol] 12.8 g/dL Low 13.0-17.0 [facility] Comment on above: Performed By: #### P INR, CBCA, BMP ####[facility] ([id number])[address] [address] Lymphocytes (Bld) [#/Vol] 3.7 10*3/uL High 1.0-3.5 [facility] Comment on above: Performed By: #### P INR, CBCA, BMP ####[facility] ([id number])[address] [address] Lymphocytes/100 WBC (Bld) 12.0 % Normal [facility] Comment on above: Performed By: #### P INR, CBCA, BMP ####[facility] ([id number])[address] [address] MCH (RBC) [Entitic mass] 29.9 pg Normal 27-34 [facility] Comment on above: Performed By: #### P INR, CBCA, BMP ####[facility] ([id number])[address] [place] [address] MCHC (RBC) [Mass/Vol] 32.9 g/dL Normal 32-36 [facility] Comment on above: Performed By: #### P INR, CBCA, BMP ####[facility] ([id number])[address] [place] [address] MCV (RBC) [Entitic vol] 91 fL Normal 80-100 [facility] Comment on above: Performed By: #### P INR, CBCA, BMP ####[facility] ([id number])[address], [place] [address] Metamyelocytes/100 WBC (Bld) 1.0 % Normal [facility] Comment on above: Performed By: #### P INR, CBCA, BMP ####[facility] ([id number])[address], [address], [place] [address] Monocytes (Bld) [#/Vol] 4.0 10*3/uL High 0-0.9 [facility] Comment on above: Performed By: #### P INR, CBCA, BMP ####[facility] ([id number])[address], [address] [place] [address], [place] [address] Monocytes/100 WBC (Bld) 13.0 % Normal [facility] Comment on above: Performed By: #### P INR, CBCA, BMP ####[facility] ([id number])[address] [address] [place] [address], [place] [address] Neutrophils (Bld) [#/Vol] 22.9 10*3/uL High 1.5-6.6 [facility] Comment on above: Performed By: #### P INR, CBCA, BMP ####[facility] ([id number])[address], [address] [place] [address] Platelet mean volume (Bld) [Entitic vol] 8.9 fL Normal 7-12 [facility] Comment on above: Performed By: #### P INR, CBCA, BMP ####[facility] ([id number])[address], [address] [place] [address] Platelets (Bld) [#/Vol] 415 10*3/uL Normal 150-450 [facility] Comment on above: Performed By: #### P INR, CBCA, BMP ####[facility] ([id number])[address], [address], [place] [address] RBC COUNT 4.28 X10E12/L Normal 4.10-5.70 [facility] Comment on above: Performed By: #### P INR, CBCA, BMP ####[facility] ([id number])[address], [address] [place] [address] ROULEAUX 1+ Abnormal NONE [facility] Comment on above: Performed By: #### P INR, CBCA, BMP ####[facility] ([id number])[address], [address] [place] [address] SEG NEUTROPHIL 73.0 % Normal [facility] Comment on above: Performed By: #### P INR, CBCA, BMP ####[facility] ([id number])[address], [address] [place] [address] WBC (Bld) [#/Vol] 30.9 10*3/uL High 4.0-11.0 [facility] Comment on above: Performed By: #### P INR, CBCA, BMP ####[facility] ([id number])[address], [address] [place] [address] POTASSIUMon 07-08-2023 Potassium [Moles/Vol] 4.0 mmol/L Normal 3.5-5.0 [facility] Comment on above: Performed By: #### 2 823-3 ####[facility] ([id number])[address], [address] [place] [address] PROTIME AND INRon 07-08-2023 INR Coag (PPP) [Relative time] 2.0 {INR} High 0.8-1.1 [facility] Comment on above: Performed By: #### P INR, CBCA, BMP ####[facility] ([id number])[address], [address] [place] [address] PT Coag (PPP) [Time] 22.4 s High 9.8-13.2 [facility] Comment on above: Performed By: #### P INR, CBCA, BMP ####[facility] ([id number])[address], [address], [place] [address] aPTT Coag (PPP) [Time]on aPTT Coag (Bld) [Time] 69 s High 26-37 [facility] Comment on above: Performed By: #### 1 4979-9 ####[facility] ([id number])[address] [address] [place] [address] BASIC METABOLIC PANLon 07-06 Anion gap [Moles/Vol] 10 mmol/L Normal 5-15 [facility] Comment on above: Performed By: #### C BCA, BMP ####[facility] ([id number])[address], [address] [place] [address] Calcium [Mass/Vol] 9.6 mg/dL Normal 8.5-10.5 [facility] Comment on above: Performed By: #### C BCA, BMP ####[facility] ([id number])[address] [address] [place] [address] Chloride [Moles/Vol] 85 mmol/L Low 98-109 [facility] Comment on above: Performed By: #### C BCA, BMP ####[facility] ([id number])[address], [address], [place] [address] CO2 [Moles/Vol] 38 mmol/L High 22-32 [facility] Comment on above: Performed By: #### C BCA, BMP ####[facility] ([id number])[address], [address], [place] [address] Creatinine [Mass/Vol] 0.57 mg/dL Low 0.60-1.30 [facility] Comment on above: Result Comment: METH OD TRACEABLE TO IDMS STANDARD Performed By: #### C TALISHA, BMP ####[facility] ([id number])[address], [address] [place] [address] eGFR (CKD-EPI) NON-RACE DEPENDENT >90 Normal >59 [facility] Comment on above: Result Comment: Repo rted eGFR is based on theCKD-EPI 2020 equation that doesnot use a race coefficient. Performed By: #### C BCA, BMP ####[facility] ([id number])0 [address] [address] [place] [address], [place] [address] Glucose [Mass/Vol] 98 mg/dL Normal 65-99 [facility] Comment on above: Performed By: #### C BCA, BMP ####[facility] ([id number])[address] [address] [place] [address], [place] [address] Potassium [Moles/Vol] 3.6 mmol/L Normal 3.5-5.0 [facility] Comment on above: Performed By: #### C BCA, BMP ####[facility] ([id number])[address] [address] [place] [address], [place] [address] Sodium [Moles/Vol] 133 mmol/L Low 134-146 [facility] Comment on above: Performed By: #### C BCA, BMP ####[facility] ([id number])[address] [address] [place] [address], [place] [address] Urea nitrogen [Mass/Vol] 30 mg/dL High 5-27 [facility] Comment on above: Performed By: #### C TALISHA, BMP ####[facility] ([id number])[address], [address], [place] [address] BLOOD CULTUREon 07-07-2023 Bacteria identified Aer cx Nom (Bld) CULTURE RESULTS NO GROWTH 5 DAYS Normal [facility] CBC AND AUTO DIFFon 07-07-19 24 ABSOLUTE BASOPHIL 0.0 X10E9/L Normal 0.0-0.2 [facility] Comment on above: Performed By: #### C TALISHA, BMP ####[facility] ([id number])[address], [address] [place] [address] ABSOLUTE NEUTROPHIL 19.6 X10E9/L High 1.5-6.6 [facility] Comment on above: Performed By: #### C TALISHA, BMP ####[facility] ([id number])[address], [place] [address] Basophils/100 WBC (Bld) 0.1 % Normal [facility] Comment on above: Performed By: #### C TALISHA, BMP ####[facility] ([id number])[address], [address] [place] [address] Eosinophils (Bld) [#/Vol] 0.0 10*3/uL Normal 0.0-0.4 [facility] Comment on above: Performed By: #### C TALISHA, BMP ####[facility] ([id number])[address] [address] [place] [address] Eosinophils/100 WBC (Bld) 0.1 % Normal [facility] Comment on above: Performed By: #### C TALISHA, BMP ####[facility] ([id number])[address], [address] [place] [address] Erythrocyte distribution width (RBC) [Ratio] 17.5 % High 11.5-15.0 [facility] Comment on above: Performed By: #### C BCA, BMP ####[facility] ([id number])[address] [place] [address] Hematocrit (Bld) [Volume fraction] 38.1 % Low 39-49 [facility] Comment on above: Performed By: #### C BCA, BMP ####[facility] ([id number])[address], [address], [place] [address] Hemoglobin (Bld) [Mass/Vol] 12.5 g/dL Low 13.0-17.0 [facility] Comment on above: Performed By: #### C BCA, BMP ####[facility] ([id number])[address] [address], [place] [address] Lymphocytes (Bld) [#/Vol] 3.1 10*3/uL Normal 1.0-3.5 [facility] Comment on above: Performed By: #### C BCA, BMP ####[facility] ([id number])[address] [address], [place] [address] Lymphocytes/100 WBC (Bld) 11.6 % Normal [facility] Comment on above: Performed By: #### C BCA, BMP ####[facility] ([id number])[address], [place] [address] MCH (RBC) [Entitic mass] 29.7 pg Normal 27-34 [facility] Comment on above: Performed By: #### C BCA, BMP ####[facility] ([id number])[address] [place] [address] MCHC (RBC) [Mass/Vol] 32.7 g/dL Normal 32-36 [facility] Comment on above: Performed By: #### C BCA, BMP ####[facility] ([id number])[address], [address], [place] [address] MCV (RBC) [Entitic vol] 91 fL Normal 80-100 [facility] Comment on above: Performed By: #### C BCA, BMP ####[facility] ([id number])[address], [address], [place] [address] Monocytes (Bld) [#/Vol] 4.3 10*3/uL High 0-0.9 [facility] Comment on above: Performed By: #### C BCA, BMP ####[facility] ([id number])[address], [address], [place] [address] Monocytes/100 WBC (Bld) 15.9 % Normal [facility] Comment on above: Performed By: #### C BCA, BMP ####[facility] ([id number])[address] [address] [place] [address] Neutrophils/100 WBC (Bld) 72.3 % Normal [facility] Comment on above: Performed By: #### C BCA, BMP ####[facility] ([id number])[address], [address], [place] [address] Platelet mean volume (Bld) [Entitic vol] 9.1 fL Normal 7-12 [facility] Comment on above: Performed By: #### C BCA, BMP ####[facility] ([id number])[address] [address], [place] [address] Platelets (Bld) [#/Vol] 396 10*3/uL Normal 150-450 [facility] Comment on above: Performed By: #### C BCA, BMP ####[facility] ([id number])[address] [address] [place] [address] RBC COUNT 4.20 X10E12/L Normal 4.10-5.70 [facility] Comment on above: Performed By: #### C BCA, BMP ####[facility] ([id number])[address], [address] [place] [address] WBC (Bld) [#/Vol] 27.1 10*3/uL High 4.0-11.0 [facility] Comment on above: Performed By: #### C BCA, BMP ####[facility] ([id number])[address], [address] [place] [address] CRP [Mass/Vol]on 07-07-2023 C REACTIVE PROTEIN 27.5 mg/dL High 0.000-0.744 [facility] Comment on above: Performed By: #### 1 988-5, 3084-1, 04627-8, 96118-8, 01960-6, 69699-9 ####[facility] ([id number])[address], [address] [place] [address] ESR Photometric method (Bld) [Velocity]on 07-07-2023 ESR, ERYTHROCYTE SEDIMENTATION RATE 100 mm/h High 0-20 [facility] Comment on above: Performed By: #### 1 988-5, 3084-1, 28670-0, 15989-9, 70728-6, 60714-4 ####[facility] ([id number])[address], [address] [place] [address] Fibrin D-dimer DDU (PPP) [Ma ss/Vol]on 07-07-2023 D DIMER 668 ng/mL DDU High <255 [facility] Comment on above: Result Comment: Resu lts >=255ng/mL DDU: Results may beindicative of the presence of VTE. The useof the Wells score and further diagnostictests should be considered. Elevated D-Dimerlevels can also be associated with DIC,neoplasm, , trauma and liver disease.Elevated levels of rheumatoid factor may leadto an overestimation of the D-Dimer level. Performed By: #### 1 988-5, 3084-1, 58004-5, 38004-4, 76672-1, 72764-3 ####[facility] ([id number])[address], [place] [address] HEMOGLOBINon 07-07-2023 Hemoglobin (Bld) [Mass/Vol] 12.6 g/dL Low 13.0-17.0 [facility] Comment on above: Performed By: #### 7 18-7, PLTCT, PINR, 56335-2 ####[facility] ([id number])[address], [address], [place] [address] MRSA PCR NASALon 07-07-2023 MRSA DNA DENIS+probe Ql (Unsp spec) Negative Normal NEG [facility] Comment on above: Performed By: #### 3 5492-8 ####[facility] ([id number])[address] [address] [place] [address] PLATELET COUNT AND MPVon Platelet mean volume (Bld) [Entitic vol] 8.8 fL Normal 7-12 [facility] Comment on above: Performed By: #### 7 18-7, PLTCT, PINR, 82343-0 ####[facility] ([id number])0 [address] [address] [place] [address] Platelets (Bld) [#/Vol] 405 10*3/uL Normal 150-450 [facility] Comment on above: Performed By: #### 7 18-7, PLTCT, PINR, 17838-4 ####[facility] ([id number])[address], [address] [place] [address] POTASSIUMon 07-07-2023 Potassium [Moles/Vol] 3.9 mmol/L Normal 3.5-5.0 [facility] Comment on above: Performed By: #### 2 823-3 ####[facility] ([id number])[address] [address], [place] [address] PROTIME AND INRon 07-07-2023 INR Coag (PPP) [Relative time] 2.0 {INR} High 0.8-1.1 [facility] Comment on above: Performed By: #### 7 18-7, PLTCT, PINR, 28491-6 ####[facility] ([id number])[address], [address], [place] [address] PT Coag (PPP) [Time] 22.8 s High 9.8-13.2 [facility] Comment on above: Performed By: #### 7 18-7, PLTCT, PINR, 06430-3 ####[facility] ([id number])[address], [address] [place] [address] Procalcitonin IA [Mass/Vol]o n 07-07-2023 PROCALCITONIN 0.31 ng/mL High <0.05 [facility] Comment on above: Result Comment: NOTE <0.50 ng/mL - Low risk of severe sepsis and/or septic shock.<2.00 ng/mL - Recommend retesting within 6-24 hours.>2.00 ng/mL - High risk of sepsis and/or septic shock. Performed By: #### 1 988-5, 3084-1, 51820-9, 12213-0, 80189-1, 97562-8 ####[facility] ([id number])[address], [address] [place] [address] URIC ACIDon 07-07-2023 Urate [Mass/Vol] 3.8 mg/dL Normal 2.6-7.2 [facility] Comment on above: Performed By: #### 1 988-5, 3084-1, 35174-4, 98281-3, 20380-0, 25823-5 ####[facility] ([id number])[address], [address] [place] [address] URINE CULTUREon 07-07-2023 Bacteria identified Cx Nom (U) SPECIMEN NOTES URINE RECEIVED WITHOUT PRESERVATIVE CULTURE RESULTS 50-100,000 ORGANISMS/ML NORMAL UROGENITAL NUNU Normal [facility] Comment on above: Performed By: #### 6 30-4 ####[facility] ([id number])[address], [place] [address] aPTT Coag (PPP) [Time]on aPTT Coag (Bld) [Time] 73 s High 26-37 [facility] Comment on above: Performed By: #### 1 988-5, 3084-1, 36201-6, 50786-3, 73132-0, 31826-1 ####[facility] ([id number])[address] [address] aPTT Coag (Bld) [Time] 36 s Normal 26-37 [facility] Comment on above: Performed By: #### 7 18-7, PLTCT, PINR, 30368-0 ####[facility] ([id number])[address], [place] [address] BASIC METABOLIC PANLon 07-05 Anion gap [Moles/Vol] 8 mmol/L Normal 5-15 [facility] Comment on above: Performed By: #### C BCA, BMP ####[facility] ([id number])[address], [place] [address] Calcium [Mass/Vol] 9.9 mg/dL Normal 8.5-10.5 [facility] Comment on above: Performed By: #### C BCA, BMP ####[facility] ([id number])[address] [address] Chloride [Moles/Vol] 88 mmol/L Low 98-109 [facility] Comment on above: Performed By: #### C BCA, BMP ####[facility] ([id number])[address], [place] [address] CO2 [Moles/Vol] 41 mmol/L High 22-32 [facility] Comment on above: Performed By: #### C BCA, BMP ####[facility] ([id number])[address] [address] [place] [address] Creatinine [Mass/Vol] 0.66 mg/dL Normal 0.60-1.30 [facility] Comment on above: Result Comment: METH OD TRACEABLE TO IDMS STANDARD Performed By: #### C BCA, BMP ####[facility] ([id number])[address] [address] [place] [address] eGFR (CKD-EPI) NON-RACE DEPENDENT >90 Normal >59 [facility] Comment on above: Result Comment: Repo rted eGFR is based on theCKD-EPI 2020 equation that doesnot use a race coefficient. Performed By: #### C BCA, BMP ####[facility] ([id number])[address] [address] [place] [address] Glucose [Mass/Vol] 103 mg/dL High 65-99 [facility] Comment on above: Performed By: #### C BCA, BMP ####[facility] ([id number])[address] [address] [place] [address] Potassium [Moles/Vol] 3.8 mmol/L Normal 3.5-5.0 [facility] Comment on above: Performed By: #### C BCA, BMP ####[facility] ([id number])[address] [address] [place] [address] Sodium [Moles/Vol] 137 mmol/L Normal 134-146 [facility] Comment on above: Performed By: #### C BCA, BMP ####[facility] ([id number])[address] [address] [place] [address] Urea nitrogen [Mass/Vol] 37 mg/dL High 5-27 [facility] Comment on above: Performed By: #### C BCA, BMP ####[facility] ([id number])[address] [address], [place] [address] CBC AND AUTO DIFFon 07-06-19 Erythrocyte distribution width (RBC) [Ratio] 16.9 % High 11.5-15.0 [facility] Comment on above: Performed By: #### C TALISHA, BMP ####[facility] ([id number])[address] [place] [address] Hematocrit (Bld) [Volume fraction] 37.9 % Low 39-49 [facility] Comment on above: Performed By: #### C TALISHA, BMP ####[facility] ([id number])[address] [address], [place] [address] Hemoglobin (Bld) [Mass/Vol] 12.6 g/dL Low 13.0-17.0 [facility] Comment on above: Performed By: #### C TALISHA, BMP ####[facility] ([id number])[address] [address], [place] [address] LYMPHOCYTE, ATYPICAL 3.0 % Normal [facility] Comment on above: Performed By: #### C TALISHA, BMP ####[facility] ([id number])[address] [address], [place] [address] Lymphocytes (Bld) [#/Vol] 2.7 10*3/uL Normal 1.0-3.5 [facility] Comment on above: Performed By: #### C TALISHA, BMP ####[facility] ([id number])[address] [address], [place] [address] Lymphocytes/100 WBC (Bld) 6.0 % Normal [facility] Comment on above: Performed By: #### C BCA, BMP ####[facility] ([id number])[address] [address] [place] [address] MCH (RBC) [Entitic mass] 30.0 pg Normal 27-34 [facility] Comment on above: Performed By: #### C TALISHA, BMP ####[facility] ([id number])[address], [address] [place] [address] MCHC (RBC) [Mass/Vol] 33.2 g/dL Normal 32-36 [facility] Comment on above: Performed By: #### C BCA, BMP ####[facility] ([id number])[address], [address], [place] [address] MCV (RBC) [Entitic vol] 91 fL Normal 80-100 [facility] Comment on above: Performed By: #### C TALISHA, BMP ####[facility] ([id number])[address] [address] [place] [address] Monocytes (Bld) [#/Vol] 4.5 10*3/uL High 0-0.9 [facility] Comment on above: Performed By: #### C TALISHA, BMP ####[facility] ([id number])[address] [address] [place] [address] Monocytes/100 WBC (Bld) 15.0 % Normal [facility] Comment on above: Performed By: #### C TALISHA, BMP ####[facility] ([id number])[address] [address] [place] [address] Neutrophils (Bld) [#/Vol] 22.7 10*3/uL High 1.5-6.6 [facility] Comment on above: Performed By: #### C BCA, BMP ####[facility] ([id number])[address] [address] [place] [address] Platelet mean volume (Bld) [Entitic vol] 8.8 fL Normal 7-12 [facility] Comment on above: Performed By: #### C BCA, BMP ####[facility] ([id number])[address], [place] [address] Platelets (Bld) [#/Vol] 401 10*3/uL Normal 150-450 [facility] Comment on above: Performed By: #### C BCA, BMP ####[facility] ([id number])[address], [place] [address] RBC COUNT 4.19 X10E12/L Normal 4.10-5.70 [facility] Comment on above: Performed By: #### C TALISHA, BMP ####[facility] ([id number])[address], [address], [place] [address] RBC morphology finding Nom (Bld) NORMAL Normal [facility] Comment on above: Performed By: #### C TALISHA, BMP ####[facility] ([id number])[address] [address] [place] [address] SEG NEUTROPHIL 76.0 % Normal [facility] Comment on above: Performed By: #### C BCA, BMP ####[facility] ([id number])[address] [address] [place] [address] WBC (Bld) [#/Vol] 29.9 10*3/uL High 4.0-11.0 [facility] Comment on above: Performed By: #### C BCA, BMP ####[facility] ([id number])[address], [address] [place] [address], [place] [address] CT ABDOMEN AND PELVIS W CONT on 07-06-2023 CT ABDOMEN AND PELVIS W CONT Normal [facility] CT CARDIAC MORPHOLOGYon CT CARDIAC MORPHOLOGY Normal [facility] POTASSIUMon 07-06-2023 Potassium [Moles/Vol] 3.6 mmol/L Normal 3.5-5.0 [facility] Comment on above: Performed By: #### 2 823-3 ####[facility] ([id number])[address] [address], [place] [address] BASIC METABOLIC PANLon 07-04 Anion gap [Moles/Vol] 14 mmol/L Normal 5-15 [facility] Comment on above: Performed By: #### C BCA, BMP ####[facility] ([id number])[address] [address], [place] [address] Calcium [Mass/Vol] 10.4 mg/dL Normal 8.5-10.5 [facility] Comment on above: Performed By: #### C BCA, BMP ####[facility] ([id number])[address] [address], [place] [address] Chloride [Moles/Vol] 87 mmol/L Low 98-109 [facility] Comment on above: Performed By: #### C BCA, BMP ####[facility] ([id number])[address] [address], [place] [address] CO2 [Moles/Vol] 35 mmol/L High 22-32 [facility] Comment on above: Performed By: #### C BCA, BMP ####[facility] ([id number])[address] [address], [place] [address] Creatinine [Mass/Vol] 0.75 mg/dL Normal 0.60-1.30 [facility] Comment on above: Result Comment: METH OD TRACEABLE TO IDMS STANDARD Performed By: #### C BCA, BMP ####[facility] ([id number])[address] [address] [address] eGFR (CKD-EPI) NON-RACE DEPENDENT >90 Normal >59 [facility] Comment on above: Result Comment: Repo rted eGFR is based on theCKD-EPI 2020 equation that doesnot use a race coefficient. Performed By: #### C BCA, BMP ####[facility] ([id number])[address] [address] [address] Glucose [Mass/Vol] 142 mg/dL High 65-99 [facility] Comment on above: Performed By: #### C TALISHA, BMP ####[facility] ([id number])[address] [address], [place] [address] Potassium [Moles/Vol] 3.7 mmol/L Normal 3.5-5.0 [facility] Comment on above: Performed By: #### C TALISHA, BMP ####[facility] ([id number])[address] [address], [place] [address] Sodium [Moles/Vol] 136 mmol/L Normal 134-146 [facility] Comment on above: Performed By: #### C TALISHA, BMP ####[facility] ([id number])[address] [address] Urea nitrogen [Mass/Vol] 37 mg/dL High 5-27 [facility] Comment on above: Performed By: #### C TALISHA, BMP ####[facility] ([id number])[address] [address] CBC AND AUTO DIFFon 07-05-19 24 Band form neutrophils/100 WBC (Bld) 4.0 % Normal [facility] Comment on above: Performed By: #### C TALISHA, BMP ####[facility] ([id number])[address] [address] Erythrocyte distribution width (RBC) [Ratio] 17.0 % High 11.5-15.0 [facility] Comment on above: Performed By: #### C BCA, BMP ####[facility] ([id number])[address] [address] Hematocrit (Bld) [Volume fraction] 40.3 % Normal 39-49 [facility] Comment on above: Performed By: #### C BCA, BMP ####[facility] ([id number])[address] [place] [address] Hemoglobin (Bld) [Mass/Vol] 13.4 g/dL Normal 13.0-17.0 [facility] Comment on above: Performed By: #### C BCA, BMP ####[facility] ([id number])[address] [place] [address] Lymphocytes (Bld) [#/Vol] 3.1 10*3/uL Normal 1.0-3.5 [facility] Comment on above: Performed By: #### C TALISHA, BMP ####[facility] ([id number])[address] [place] [address] Lymphocytes/100 WBC (Bld) 10.0 % Normal [facility] Comment on above: Performed By: #### C TALISHA, BMP ####[facility] ([id number])[address] [place] [address] MCH (RBC) [Entitic mass] 30.1 pg Normal 27-34 [facility] Comment on above: Performed By: #### C TALISHA, BMP ####[facility] ([id number])[address] [place] [address] MCHC (RBC) [Mass/Vol] 33.2 g/dL Normal 32-36 [facility] Comment on above: Performed By: #### C BCA, BMP ####[facility] ([id number])[address] [place] [address] MCV (RBC) [Entitic vol] 91 fL Normal 80-100 [facility] Comment on above: Performed By: #### C BCA, BMP ####[facility] ([id number])[address] [place] [address] Monocytes (Bld) [#/Vol] 3.4 10*3/uL High 0-0.9 [facility] Comment on above: Performed By: #### C BCA, BMP ####[facility] ([id number])[address], [place] [address] Monocytes/100 WBC (Bld) 11.0 % Normal [facility] Comment on above: Performed By: #### C BCA, BMP ####[facility] ([id number])[address], [place] [address] Neutrophils (Bld) [#/Vol] 24.2 10*3/uL High 1.5-6.6 [facility] Comment on above: Performed By: #### C TALISHA, BMP ####[facility] ([id number])[address], [address], [place] [address] Platelet mean volume (Bld) [Entitic vol] 8.5 fL Normal 7-12 [facility] Comment on above: Performed By: #### C TALISHA, BMP ####[facility] ([id number])[address], [place] [address] Platelets (Bld) [#/Vol] 420 10*3/uL Normal 150-450 [facility] Comment on above: Performed By: #### C BCA, BMP ####[facility] ([id number])[address], [place] [address] RBC COUNT 4.45 X10E12/L Normal 4.10-5.70 [facility] Comment on above: Performed By: #### C BCA, BMP ####[facility] ([id number])[address], [place] [address] RBC morphology finding Nom (Bld) NORMAL Normal [facility] Comment on above: Performed By: #### C BCA, BMP ####[facility] ([id number])[address], [place] [address] SEG NEUTROPHIL 75.0 % Normal [facility] Comment on above: Performed By: #### C TALISHA, BMP ####[facility] ([id number])[address], [place] [address] WBC (Bld) [#/Vol] 30.7 10*3/uL High 4.0-11.0 [facility] Comment on above: Performed By: #### C TALISHA, BMP ####[facility] ([id number])[address], [place] [address] CT CHEST WO CONTon CT CHEST WO CONT Normal [facility] POTASSIUMon 07-05-2023 Potassium [Moles/Vol] 4.1 mmol/L Normal 3.5-5.0 [facility] Comment on above: Performed By: #### 2 823-3 ####[facility] ([id number])[address], [place] [address] BASIC METABOLIC PANLon 07-03 Anion gap [Moles/Vol] 10 mmol/L Normal 5-15 [facility] Comment on above: Performed By: #### C TALISHA, BMP ####[facility] ([id number])[address], [place] [address] Calcium [Mass/Vol] 10.0 mg/dL Normal 8.5-10.5 [facility] Comment on above: Performed By: #### C BCA, BMP ####[facility] ([id number])[address], [place] [address] Chloride [Moles/Vol] 85 mmol/L Low 98-109 [facility] Comment on above: Performed By: #### C BCA, BMP ####[facility] ([id number])[address] [place] [address] CO2 [Moles/Vol] 40 mmol/L High 22-32 [facility] Comment on above: Performed By: #### C BCA, BMP ####[facility] ([id number])[address] [address] Creatinine [Mass/Vol] 0.62 mg/dL Normal 0.60-1.30 [facility] Comment on above: Result Comment: METH OD TRACEABLE TO IDMS STANDARD Performed By: #### C BCA, BMP ####[facility] ([id number])[address] [address] eGFR (CKD-EPI) NON-RACE DEPENDENT >90 Normal >59 [facility] Comment on above: Result Comment: Repo rted eGFR is based on theCKD-EPI 2020 equation that doesnot use a race coefficient. Performed By: #### C BCA, BMP ####[facility] ([id number])[address] [address] Glucose [Mass/Vol] 126 mg/dL High 65-99 [facility] Comment on above: Performed By: #### C BCA, BMP ####[facility] ([id number])[address] [address] [place] [address] Potassium [Moles/Vol] 3.7 mmol/L Normal 3.5-5.0 [facility] Comment on above: Performed By: #### C BCA, BMP ####[facility] ([id number])[address] [address] Sodium [Moles/Vol] 135 mmol/L Normal 134-146 [facility] Comment on above: Performed By: #### C BCA, BMP ####[facility] ([id number])[address] [address] Urea nitrogen [Mass/Vol] 33 mg/dL High 5-27 [facility] Comment on above: Performed By: #### C BCA, BMP ####[facility] ([id number])[address] [address], [place] [address] CBC AND AUTO DIFFon 07-04-19 24 Band form neutrophils/100 WBC (Bld) 3.0 % Normal [facility] Comment on above: Performed By: #### C TALISHA, BMP ####[facility] ([id number])[address] [address], [place] [address] Eosinophils (Bld) [#/Vol] 0.3 10*3/uL Normal 0.0-0.4 [facility] Comment on above: Performed By: #### C TALISHA, BMP ####[facility] ([id number])[address] [address] Eosinophils/100 WBC (Bld) 1.0 % Normal [facility] Comment on above: Performed By: #### Bob WOODALL, BMP ####[facility] ([id number])[address] [address] Erythrocyte distribution width (RBC) [Ratio] 17.3 % High 11.5-15.0 [facility] Comment on above: Performed By: #### Bob WOODALL, BMP ####[facility] ([id number])[address] [address] Hematocrit (Bld) [Volume fraction] 41.6 % Normal 39-49 [facility] Comment on above: Performed By: #### C TALISHA, BMP ####[facility] ([id number])[address] [address] [place] [address] Hemoglobin (Bld) [Mass/Vol] 13.8 g/dL Normal 13.0-17.0 [facility] Comment on above: Performed By: #### Bob WOODALL, BMP ####[facility] ([id number])[address] [address] Lymphocytes (Bld) [#/Vol] 3.8 10*3/uL High 1.0-3.5 [facility] Comment on above: Performed By: #### C TALISHA, BMP ####[facility] ([id number])[address] [place] [address] Lymphocytes/100 WBC (Bld) 13.0 % Normal [facility] Comment on above: Performed By: #### C BCA, BMP ####[facility] ([id number])[address], [place] [address] MCH (RBC) [Entitic mass] 30.1 pg Normal 27-34 [facility] Comment on above: Performed By: #### C TALISHA, BMP ####[facility] ([id number])[address], [place] [address] MCHC (RBC) [Mass/Vol] 33.1 g/dL Normal 32-36 [facility] Comment on above: Performed By: #### C TALISHA, BMP ####[facility] ([id number])[address], [place] [address] MCV (RBC) [Entitic vol] 91 fL Normal 80-100 [facility] Comment on above: Performed By: #### C TALISHA, BMP ####[facility] ([id number])[address] [place] [address] Monocytes (Bld) [#/Vol] 2.1 10*3/uL High 0-0.9 [facility] Comment on above: Performed By: #### C BCA, BMP ####[facility] ([id number])[address] [place] [address] Monocytes/100 WBC (Bld) 7.0 % Normal [facility] Comment on above: Performed By: #### C BCA, BMP ####[facility] ([id number])[address], [place] [address] MYELOCYTE 1.0 % Normal [facility] Comment on above: Performed By: #### C TALISHA, BMP ####[facility] ([id number])[address] [address], [place] [address] Neutrophils (Bld) [#/Vol] 22.9 10*3/uL High 1.5-6.6 [facility] Comment on above: Performed By: #### C TALISHA, BMP ####[facility] ([id number])[address] [address], [place] [address] Platelet mean volume (Bld) [Entitic vol] 8.4 fL Normal 7-12 [facility] Comment on above: Performed By: #### C TALISHA, BMP ####[facility] ([id number])[address] [address], [place] [address] Platelets (Bld) [#/Vol] 426 10*3/uL Normal 150-450 [facility] Comment on above: Performed By: #### C TALISHA, BMP ####[facility] ([id number])[address] [address], [place] [address] RBC COUNT 4.57 X10E12/L Normal 4.10-5.70 [facility] Comment on above: Performed By: #### Bob WOODALL, BMP ####[facility] ([id number])[address] [address], [place] [address] RBC morphology finding Nom (Bld) NORMAL Normal [facility] Comment on above: Performed By: #### Bob WOODALL, BMP ####[facility] ([id number])[address] [address], [place] [address] SEG NEUTROPHIL 75.0 % Normal [facility] Comment on above: Performed By: #### Bob WOODALL, BMP ####[facility] ([id number])[address] [address], [place] [address] WBC (Bld) [#/Vol] 29.4 10*3/uL High 4.0-11.0 [facility] Comment on above: Performed By: #### C BCA, BMP ####[facility] ([id number])[address], [place] [address] BASIC METABOLIC PANLon 07-02 Anion gap [Moles/Vol] 8 mmol/L Normal 5-15 [facility] Comment on above: Performed By: #### C TALISHA, BMP ####[facility] ([id number])[address] [address], [place] [address] Calcium [Mass/Vol] 9.7 mg/dL Normal 8.5-10.5 [facility] Comment on above: Performed By: #### C TALISHA, BMP ####[facility] ([id number])[address] [address], [place] [address] Chloride [Moles/Vol] 87 mmol/L Low 98-109 [facility] Comment on above: Performed By: #### C TALISHA, BMP ####[facility] ([id number])[address] [address] [place] [address], [place] [address] CO2 [Moles/Vol] 37 mmol/L High 22-32 [facility] Comment on above: Performed By: #### C BCA, BMP ####[facility] ([id number])[address] [address] [place] [address] Creatinine [Mass/Vol] 0.54 mg/dL Low 0.60-1.30 [facility] Comment on above: Result Comment: METH OD TRACEABLE TO IDMS STANDARD Performed By: #### C BCA, BMP ####[facility] ([id number])[address] [place] [address] eGFR (CKD-EPI) NON-RACE DEPENDENT >90 Normal >59 [facility] Comment on above: Result Comment: Repo rted eGFR is based on theD-EPI 2020 equation that doesnot use a race coefficient. Performed By: #### C TALISHA, BMP ####[facility] ([id number])[address], [place] [address] Glucose [Mass/Vol] 143 mg/dL High 65-99 [facility] Comment on above: Performed By: #### C BCA, BMP ####[facility] ([id number])[address] [address] [place] [address] Potassium [Moles/Vol] 3.9 mmol/L Normal 3.5-5.0 [facility] Comment on above: Performed By: #### C BCA, BMP ####[facility] ([id number])[address] [address], [place] [address] Sodium [Moles/Vol] 132 mmol/L Low 134-146 [facility] Comment on above: Performed By: #### C BCA, BMP ####[facility] ([id number])[address] [address] [place] [address] Urea nitrogen [Mass/Vol] 26 mg/dL Normal 5-27 [facility] Comment on above: Performed By: #### C BCA, BMP ####[facility] ([id number])[address] [address] CBC AND AUTO DIFFon 07-03-19 Erythrocyte distribution width (RBC) [Ratio] 17.0 % High 11.5-15.0 [facility] Comment on above: Performed By: #### C BCA, BMP ####[facility] ([id number])[address] [address] [place] [address] Hematocrit (Bld) [Volume fraction] 40.2 % Normal 39-49 [facility] Comment on above: Performed By: #### C BCA, BMP ####[facility] ([id number])[address], [place] [address] Hemoglobin (Bld) [Mass/Vol] 13.1 g/dL Normal 13.0-17.0 [facility] Comment on above: Performed By: #### C TALISHA, BMP ####[facility] ([id number])[address], [place] [address] LYMPHOCYTE, ATYPICAL 1.0 % Normal [facility] Comment on above: Performed By: #### C TALISHA, BMP ####[facility] ([id number])[address] [place] [address] Lymphocytes (Bld) [#/Vol] 2.5 10*3/uL Normal 1.0-3.5 [facility] Comment on above: Performed By: #### C TALISHA, BMP ####[facility] ([id number])[address] [place] [address] Lymphocytes/100 WBC (Bld) 7.7 % Normal [facility] Comment on above: Performed By: #### C TALISHA, BMP ####[facility] ([id number])[address], [place] [address] MCH (RBC) [Entitic mass] 29.6 pg Normal 27-34 [facility] Comment on above: Performed By: #### C TALISHA, BMP ####[facility] ([id number])[address] [address] MCHC (RBC) [Mass/Vol] 32.6 g/dL Normal 32-36 [facility] Comment on above: Performed By: #### C TALISHA, BMP ####[facility] ([id number])[address], [place] [address] MCV (RBC) [Entitic vol] 91 fL Normal 80-100 [facility] Comment on above: Performed By: #### C TALISHA, BMP ####[facility] ([id number])[address] [place] [address] Monocytes (Bld) [#/Vol] 3.3 10*3/uL High 0-0.9 [facility] Comment on above: Performed By: #### C TALISHA, BMP ####[facility] ([id number])[address] [place] [address] Monocytes/100 WBC (Bld) 11.5 % Normal [facility] Comment on above: Performed By: #### C TALISHA, BMP ####[facility] ([id number])[address], [place] [address] Neutrophils (Bld) [#/Vol] 23.1 10*3/uL High 1.5-6.6 [facility] Comment on above: Performed By: #### C TALISHA, BMP ####[facility] ([id number])[address], [place] [address] Platelet mean volume (Bld) [Entitic vol] 8.4 fL Normal 7-12 [facility] Comment on above: Performed By: #### C TALISHA, BMP ####[facility] ([id number])[address], [place] [address] Platelets (Bld) [#/Vol] 457 10*3/uL High 150-450 [facility] Comment on above: Performed By: #### C TALISHA, BMP ####[facility] ([id number])[address] [place] [address] POLYCHROMASIA 1+ Abnormal NONE [facility] Comment on above: Performed By: #### C TALISHA, BMP ####[facility] ([id number])[address] [place] [address] RBC COUNT 4.42 X10E12/L Normal 4.10-5.70 [facility] Comment on above: Performed By: #### C TALISHA, BMP ####[facility] ([id number])[address] [address] [place] [address] SEG NEUTROPHIL 79.8 % Normal [facility] Comment on above: Performed By: #### C TALISHA, BMP ####[facility] ([id number])[address] [address] TARGET 1+ Abnormal NONE [facility] Comment on above: Performed By: #### C TALISHA, BMP ####[facility] ([id number])[address] [address] WBC (Bld) [#/Vol] 28.9 10*3/uL High 4.0-11.0 [facility] Comment on above: Performed By: #### C TALISHA, BMP ####[facility] ([id number])[address] [address] MAGNESIUMon 07-03-2023 Magnesium [Mass/Vol] 2.3 mg/dL Normal 1.8-2.6 [facility] Comment on above: Performed By: #### 1 9123-9 ####[facility] ([id number])[address] [address] ARTERIAL BLOOD GASon 024 KATHERINE'S TEST Pass Normal [facility] Comment on above: Performed By: #### A BG ####[facility] ([id number])[address] [place] [address] Base excess Calc (Bld) [Moles/Vol] 16.0 mmol/L High 0.0-2.0 [facility] Comment on above: Performed By: #### A BG ####[facility] ([id number])[address] [place] [address] Body temperature 98.6 [degF] Normal 37.0 [facility] Comment on above: Performed By: #### A BG ####[facility] ([id number])[address] [place] [address] HCO3 (Bld) [Moles/Vol] 42.1 mmol/L High 22-26 [facility] Comment on above: Performed By: #### A BG ####[facility] ([id number])[address] [place] [address] INSP. O2 CONC. 1 % Normal [facility] Comment on above: Performed By: #### A BG ####[facility] ([id number])[address] [place] [address] Oxygen (Bld) [Partial pressure] 65 mm[Hg] Low 80-100 [facility] Comment on above: Performed By: #### A BG ####[facility] ([id number])[address] [facility] [place] [address] Oxygen saturation in Blood 94.0 % Normal >90 [facility] Comment on above: Performed By: #### A BG ####[facility] ([id number])[address] [place] [address] OXYGEN SOURCE NC Normal [facility] Comment on above: Performed By: #### A BG ####[facility] ([id number])[address] [place] [address] PCO2 53.2 MMHG High 35-45 [facility] Comment on above: Performed By: #### A BG ####[facility] ([id number])[address] [place] [address] pH (Bld) 7.507 [pH] High 7.350-7.450 [facility] Comment on above: Performed By: #### A BG ####[facility] ([id number])[address] [place] [address] SAMPLE SITE RRad Normal [facility] Comment on above: Performed By: #### A BG ####[facility] ([id number])[address] [place] [address] SAMPLE TYPE ARTERIAL Normal [facility] Comment on above: Performed By: #### A BG ####[facility] ([id number])[address] [place] [address] BASIC METABOLIC PANLon 07-01 Anion gap [Moles/Vol] 8 mmol/L Normal 5-15 [facility] Comment on above: Performed By: #### C BCA, BMP, , 2776-03 ####[facility] ([id number])[address] [address] Calcium [Mass/Vol] 9.7 mg/dL Normal 8.5-10.5 [facility] Comment on above: Performed By: #### C BCA, BMP, , 2776-03 ####[facility] ([id number])[address], [place] [address] Chloride [Moles/Vol] 88 mmol/L Low 98-109 [facility] Comment on above: Performed By: #### C BCA, BMP, , 2776-03 ####[facility] ([id number])[address], [place] [address] CO2 [Moles/Vol] 40 mmol/L High 22-32 [facility] Comment on above: Performed By: #### C BCA, BMP, , 2776-03 ####[facility] ([id number])[address], [place] [address] Creatinine [Mass/Vol] 0.50 mg/dL Low 0.60-1.30 [facility] Comment on above: Result Comment: METH OD TRACEABLE TO IDMS STANDARD Performed By: #### C BCA, BMP, , 2776-03 ####[facility] ([id number])[address] [address], [place] [address] eGFR (CKD-EPI) NON-RACE DEPENDENT >90 Normal >59 [facility] Comment on above: Result Comment: Repo rted eGFR is based on theCKD-EPI 2020 equation that doesnot use a race coefficient. Performed By: #### C BCA, BMP, , 2776-03 ####[facility] ([id number])[address] [address], [place] [address] Glucose [Mass/Vol] 105 mg/dL High 65-99 [facility] Comment on above: Performed By: #### C BCA, BMP, , 2776-03 ####[facility] ([id number])[address] [address] [place] [address] Potassium [Moles/Vol] 4.1 mmol/L Normal 3.5-5.0 [facility] Comment on above: Performed By: #### C BCA, BMP, , 2776-03 ####[facility] ([id number])[address] [address] Sodium [Moles/Vol] 136 mmol/L Normal 134-146 [facility] Comment on above: Performed By: #### C BCA, BMP, , 2776-03 ####[facility] ([id number])[address] [address] [place] [address] Urea nitrogen [Mass/Vol] 24 mg/dL Normal 5-27 [facility] Comment on above: Performed By: #### C BCA, BMP, , 2776-03 ####[facility] ([id number])[address] [address] CBC AND AUTO DIFFon 07-02-19 24 ABSOLUTE BASOPHIL 0.1 X10E9/L Normal 0.0-0.2 [facility] Comment on above: Performed By: #### C TALISHA, BMP, , 2776-03 ####[facility] ([id number])[address], [address] [place] [address] ABSOLUTE NEUTROPHIL 19.7 X10E9/L High 1.5-6.6 [facility] Comment on above: Performed By: #### C TALISHA, BMP, , 2776-03 ####[facility] ([id number])[address], [address] [place] [address] Basophils/100 WBC (Bld) 0.5 % Normal [facility] Comment on above: Performed By: #### C TALISHA, BMP, , 2776-03 ####[facility] ([id number])[address], [address] [place] [address] Eosinophils (Bld) [#/Vol] 0.0 10*3/uL Normal 0.0-0.4 [facility] Comment on above: Performed By: #### C TALISHA, BMP, , 2776-03 ####[facility] ([id number])[address], [address] [place] [address]353 Eosinophils/100 WBC (Bld) 0.1 % Normal [facility] Comment on above: Performed By: #### C TALISHA, BMP, , 2776-03 ####[facility] ([id number])[address], [address] [place] [address] Erythrocyte distribution width (RBC) [Ratio] 16.8 % High 11.5-15.0 [facility] Comment on above: Performed By: #### C TALISHA, BMP, , 2776-03 ####[facility] ([id number])[address] [address] [place] [address] Hematocrit (Bld) [Volume fraction] 39.2 % Normal 39-49 [facility] Comment on above: Performed By: #### C BCA, BMP, , 2776-03 ####[facility] ([id number])[address] [address] [place] [address] Hemoglobin (Bld) [Mass/Vol] 12.9 g/dL Low 13.0-17.0 [facility] Comment on above: Performed By: #### C BCA, BMP, , 2776-03 ####[facility] ([id number])[address] [address] [place] [address] Lymphocytes (Bld) [#/Vol] 2.7 10*3/uL Normal 1.0-3.5 [facility] Comment on above: Performed By: #### C BCA, BMP, , 2776-03 ####[facility] ([id number])[address] [address] Lymphocytes/100 WBC (Bld) 10.1 % Normal [facility] Comment on above: Performed By: #### Bob BCA, BMP, , 2776-03 ####[facility] ([id number])[address] [address] [place] [address] MCH (RBC) [Entitic mass] 29.6 pg Normal 27-34 [facility] Comment on above: Performed By: #### C BCA, BMP, , 2776-03 ####[facility] ([id number])[address] [address] [place] [address] MCHC (RBC) [Mass/Vol] 32.8 g/dL Normal 32-36 [facility] Comment on above: Performed By: #### C BCA, BMP, , 2776-03 ####[facility] ([id number])[address], [address] [address] MCV (RBC) [Entitic vol] 90 fL Normal 80-100 [facility] Comment on above: Performed By: #### C TALISHA, BMP, , 2776-03 ####[facility] ([id number])[address], [address] [place] [address] Monocytes (Bld) [#/Vol] 4.3 10*3/uL High 0-0.9 [facility] Comment on above: Performed By: #### C TALISHA, BMP, , 2776-03 ####[facility] ([id number])[address], [address] [place] [address] Monocytes/100 WBC (Bld) 16.0 % Normal [facility] Comment on above: Performed By: #### C BCA, BMP, , 2776-03 ####[facility] ([id number])[address], [address] [place] [address] Neutrophils/100 WBC (Bld) 73.3 % Normal [facility] Comment on above: Performed By: #### Bob WOODALL, BMP, , 2776-03 ####[facility] ([id number])[address], [address], [place] [address] Platelet mean volume (Bld) [Entitic vol] 8.3 fL Normal 7-12 [facility] Comment on above: Performed By: #### Bob BCA, BMP, , 2776-03 ####[facility] ([id number])[address], [address], [place] [address] Platelets (Bld) [#/Vol] 468 10*3/uL High 150-450 [facility] Comment on above: Performed By: #### Bob BCA, BMP, 85369-42776-03 ####[facility] ([id number])[address], [address], [place] [address] RBC COUNT 4.34 X10E12/L Normal 4.10-5.70 [facility] Comment on above: Performed By: #### C ISELA WOODALL, , 2776-03 ####[facility] ([id number])[address], [address] [place] [address] WBC (Bld) [#/Vol] 26.9 10*3/uL High 4.0-11.0 [facility] Comment on above: Performed By: #### C ISELA WOODALL, , 2776-03 ####[facility] ([id number])[address], [address] [place] [address] Fibrin D-dimer DDU (PPP) [Ma ss/Vol]on 07-02-2023 D DIMER 1077 ng/mL DDU High <255 [facility] Comment on above: Result Comment: Resu lts >=255ng/mL DDU: Results may beindicative of the presence of VTE. The useof the Wells score and further diagnostictests should be considered. Elevated D-Dimerlevels can also be associated with DIC,neoplasm, , trauma and liver disease.Elevated levels of rheumatoid factor may leadto an overestimation of the D-Dimer level. Performed By: #### 4 8066-5 ####[facility] ([id number])[address], [address], [place] [address] MAGNESIUMon 07-02-2023 Magnesium [Mass/Vol] 1.7 mg/dL Low 1.8-2.6 [facility] Comment on above: Performed By: #### C ISELA WOODALL, , 2776-03 ####[facility] ([id number])[address], [address], [place] [address] PHOSPHORUSon 07-02-2023 Phosphate [Mass/Vol] 3.4 mg/dL Normal 2.4-4.9 [facility] Comment on above: Performed By: #### C ISELA WOODALL, 28222-3, 2777-1 ####[facility] ([id number])[address], [address] [address] XR CHEST 1 VWon 07-02-2023 XR CHEST 1 VW Normal [facility] BASIC METABOLIC PANLon 06-30 Anion gap [Moles/Vol] 10 mmol/L Normal 5-15 [facility] Comment on above: Performed By: #### C TALISHA, BMP ####[facility] ([id number])[address], [address] [place] [address], [place] [address] Calcium [Mass/Vol] 10.1 mg/dL Normal 8.5-10.5 [facility] Comment on above: Performed By: #### C TALISHA, BMP ####[facility] ([id number])[address], [address], [place] [address] Chloride [Moles/Vol] 87 mmol/L Low 98-109 [facility] Comment on above: Performed By: #### C TALISHA, BMP ####[facility] ([id number])[address] [address] [place] [address], [place] [address] CO2 [Moles/Vol] 39 mmol/L High 22-32 [facility] Comment on above: Performed By: #### C BCA, BMP ####[facility] ([id number])[address] [address] [place] [address], [place] [address] Creatinine [Mass/Vol] 0.55 mg/dL Low 0.60-1.30 [facility] Comment on above: Result Comment: METH OD TRACEABLE TO IDMS STANDARD Performed By: #### C BCA, BMP ####[facility] ([id number])[address], [address] [place] [address] eGFR (CKD-EPI) NON-RACE DEPENDENT >90 Normal >59 [facility] Comment on above: Result Comment: Repo rted eGFR is based on theD-EPI 2020 equation that doesnot use a race coefficient. Performed By: #### C TALISHA, BMP ####[facility] ([id number])[address] [address] [place] [address] Glucose [Mass/Vol] 82 mg/dL Normal 65-99 [facility] Comment on above: Performed By: #### C TALISHA, BMP ####[facility] ([id number])[address] [address] Potassium [Moles/Vol] 3.8 mmol/L Normal 3.5-5.0 [facility] Comment on above: Performed By: #### C TALISHA, BMP ####[facility] ([id number])[address] [address] Sodium [Moles/Vol] 136 mmol/L Normal 134-146 [facility] Comment on above: Performed By: #### C TALISHA, BMP ####[facility] ([id number])[address] [address] Urea nitrogen [Mass/Vol] 22 mg/dL Normal 5-27 [facility] Comment on above: Performed By: #### C TALISHA, BMP ####[facility] ([id number])[address] [address] CBC AND AUTO DIFFon 07-01-19 24 Band form neutrophils/100 WBC (Bld) 1.0 % Normal [facility] Comment on above: Performed By: #### C TALISHA, BMP ####[facility] ([id number])[address] [address] Eosinophils (Bld) [#/Vol] 0.2 10*3/uL Normal 0.0-0.4 [facility] Comment on above: Performed By: #### C TALISHA, BMP ####[facility] ([id number])[address] [address], [place] [address] Eosinophils/100 WBC (Bld) 1.0 % Normal [facility] Comment on above: Performed By: #### C BCA, BMP ####[facility] ([id number])[address], [address], [place] [address] Erythrocyte distribution width (RBC) [Ratio] 17.3 % High 11.5-15.0 [facility] Comment on above: Performed By: #### C TALISHA, BMP ####[facility] ([id number])[address], [address] [place] [address] Hematocrit (Bld) [Volume fraction] 41.6 % Normal 39-49 [facility] Comment on above: Performed By: #### C TALISHA, BMP ####[facility] ([id number])[address] [facility] [address] [place] [address] Hemoglobin (Bld) [Mass/Vol] 13.5 g/dL Normal 13.0-17.0 [facility] Comment on above: Performed By: #### C TALISHA, BMP ####[facility] ([id number])[address] [facility] [address] [place] [address] Lymphocytes (Bld) [#/Vol] 1.7 10*3/uL Normal 1.0-3.5 [facility] Comment on above: Performed By: #### C TALISHA, BMP ####[facility] ([id number])[address] [facility] [address], [place] [address] Lymphocytes/100 WBC (Bld) 7.0 % Normal [facility] Comment on above: Performed By: #### C BCA, BMP ####[facility] ([id number])[address] [facility] [address], [place] [address] MCH (RBC) [Entitic mass] 29.7 pg Normal 27-34 [facility] Comment on above: Performed By: #### C TALISHA, BMP ####[facility] ([id number])[address], [address], [place] [address] MCHC (RBC) [Mass/Vol] 32.4 g/dL Normal 32-36 [facility] Comment on above: Performed By: #### C TALISHA, BMP ####[facility] ([id number])[address], [address], [place] [address] MCV (RBC) [Entitic vol] 92 fL Normal 80-100 [facility] Comment on above: Performed By: #### C TALISHA, BMP ####[facility] ([id number])[address], [address] [place] [address] Monocytes (Bld) [#/Vol] 3.4 10*3/uL High 0-0.9 [facility] Comment on above: Performed By: #### C TALISHA, BMP ####[facility] ([id number])[address], [address] [place] [address] Monocytes/100 WBC (Bld) 14.0 % Normal [facility] Comment on above: Performed By: #### Bob WOODALL, BMP ####[facility] ([id number])[address] [facility] [address] [place] [address] Neutrophils (Bld) [#/Vol] 19.0 10*3/uL High 1.5-6.6 [facility] Comment on above: Performed By: #### C TALISHA, BMP ####[facility] ([id number])[address], [address] [place] [address] Platelet mean volume (Bld) [Entitic vol] 8.1 fL Normal 7-12 [facility] Comment on above: Performed By: #### C TALISHA, BMP ####[facility] ([id number])[address], [address], [place] [address] Platelets (Bld) [#/Vol] 499 10*3/uL High 150-450 [facility] Comment on above: Performed By: #### Bob WOODALL, BMP ####[facility] ([id number])[address], [address], [place] [address] POLYCHROMASIA 1+ Abnormal NONE [facility] Comment on above: Performed By: #### Bob WOODALL, BMP ####[facility] ([id number])[address], [address], [place] [address] RBC COUNT 4.55 X10E12/L Normal 4.10-5.70 [facility] Comment on above: Performed By: #### Bob WOODALL, BMP ####[facility] ([id number])[address], [address], [place] [address] SEG NEUTROPHIL 77.0 % Normal [facility] Comment on above: Performed By: #### Bob WOODALL, BMP ####[facility] ([id number])[address], [address] [place] [address] WBC (Bld) [#/Vol] 24.3 10*3/uL High 4.0-11.0 [facility] Comment on above: Performed By: #### Bob WOODALL, BMP ####[facility] ([id number])[address], [address] [place] [address], [place] [address] CBC AND AUTO DIFFon 06-30-19 Erythrocyte distribution width (RBC) [Ratio] 16.9 % High 11.5-15.0 [facility] Comment on above: Performed By: #### C TALISHA, CMP ####[facility] ([id number])[address], [address], [place] [address] Hematocrit (Bld) [Volume fraction] 35.5 % Low 39-49 [facility] Comment on above: Performed By: #### C TALISHA, CMP ####[facility] ([id number])[address], [address], [place] [address] Hemoglobin (Bld) [Mass/Vol] 11.6 g/dL Low 13.0-17.0 [facility] Comment on above: Performed By: #### C BCA, CMP ####[facility] ([id number])[address], [address] [place] [address] Lymphocytes (Bld) [#/Vol] 3.1 10*3/uL Normal 1.0-3.5 [facility] Comment on above: Performed By: #### C TALISHA, CMP ####[facility] ([id number])[address], [address] [place] [address] Lymphocytes/100 WBC (Bld) 13.0 % Normal [facility] Comment on above: Performed By: #### C BCA, CMP ####[facility] ([id number])[address] [place] [address] MCH (RBC) [Entitic mass] 29.9 pg Normal 27-34 [facility] Comment on above: Performed By: #### C BCA, CMP ####[facility] ([id number])[address], [address] [place] [address] MCHC (RBC) [Mass/Vol] 32.7 g/dL Normal 32-36 [facility] Comment on above: Performed By: #### C BCA, CMP ####[facility] ([id number])[address] [address] MCV (RBC) [Entitic vol] 92 fL Normal 80-100 [facility] Comment on above: Performed By: #### C BCA, CMP ####[facility] ([id number])[address], [address], [place] [address] Monocytes (Bld) [#/Vol] 2.4 10*3/uL High 0-0.9 [facility] Comment on above: Performed By: #### C TALISHA, CMP ####[facility] ([id number])[address], [address], [place] [address] Monocytes/100 WBC (Bld) 10.0 % Normal [facility] Comment on above: Performed By: #### C TALISHA, CMP ####[facility] ([id number])[address], [address], [place] [address] MYELOCYTE 2.0 % Normal [facility] Comment on above: Performed By: #### C TALISHA, CMP ####[facility] ([id number])[address], [address], [place] [address] Neutrophils (Bld) [#/Vol] 17.8 10*3/uL High 1.5-6.6 [facility] Comment on above: Performed By: #### Bob WOODALL, CMP ####[facility] ([id number])[address], [address], [place] [address] Platelet mean volume (Bld) [Entitic vol] 8.1 fL Normal 7-12 [facility] Comment on above: Performed By: #### C TALISHA, CMP ####[facility] ([id number])[address], [address], [place] [address] Platelets (Bld) [#/Vol] 475 10*3/uL High 150-450 [facility] Comment on above: Performed By: #### C TALISHA, CMP ####[facility] ([id number])[address], [address], [place] [address] POLYCHROMASIA 1+ Abnormal NONE [facility] Comment on above: Performed By: #### C TALISHA, CMP ####[facility] ([id number])[address], [address], [place] [address] RBC COUNT 3.88 X10E12/L Low 4.10-5.70 [facility] Comment on above: Performed By: #### C BCA, CMP ####[facility] ([id number])[address], [address] [place] [address] SEG NEUTROPHIL 75.0 % Normal [facility] Comment on above: Performed By: #### C BCA, CMP ####[facility] ([id number])[address], [address] [place] [address] WBC (Bld) [#/Vol] 23.8 10*3/uL High 4.0-11.0 [facility] Comment on above: Performed By: #### C BCA, CMP ####[facility] ([id number])[address], [address] [place] [address] COMPREHENSIVE METABOLIC PANE Jalen 06-30-2023 Albumin [Mass/Vol] 2.3 g/dL Low 3.2-5.3 [facility] Comment on above: Performed By: #### C BCA, CMP ####[facility] ([id number])[address] [address], [place] [address] ALP [Catalytic activity/Vol] 95 U/L Normal 39-130 [facility] Comment on above: Performed By: #### C BCA, CMP ####[facility] ([id number])[address] [address] [place] [address] ALT [Catalytic activity/Vol] 22 U/L Normal 0-40 [facility] Comment on above: Performed By: #### C BCA, CMP ####[facility] ([id number])[address] [facility] [address] [place] [address] Anion gap [Moles/Vol] 7 mmol/L Normal 5-15 [facility] Comment on above: Performed By: #### C BCA, CMP ####[facility] ([id number])[address], [place] [address] AST [Catalytic activity/Vol] 17 U/L Normal 0-41 [facility] Comment on above: Performed By: #### C BCA, CMP ####[facility] ([id number])[address], [place] [address] Bilirubin [Mass/Vol] 0.6 mg/dL Normal 0.3-1.2 [facility] Comment on above: Performed By: #### C BCA, CMP ####[facility] ([id number])[address] [facility] [address], [place] [address] Calcium [Mass/Vol] 9.1 mg/dL Normal 8.5-10.5 [facility] Comment on above: Performed By: #### C BCA, CMP ####[facility] ([id number])[address], [place] [address] Chloride [Moles/Vol] 95 mmol/L Low 98-109 [facility] Comment on above: Performed By: #### C BCA, CMP ####[facility] ([id number])[address] [facility] [address], [place] [address] CO2 [Moles/Vol] 36 mmol/L High 22-32 [facility] Comment on above: Performed By: #### C BCA, CMP ####[facility] ([id number])[address] [facility] [address], [place] [address] Creatinine [Mass/Vol] 0.48 mg/dL Low 0.60-1.30 [facility] Comment on above: Result Comment: METH OD TRACEABLE TO IDMS STANDARD Performed By: #### C BCA, CMP ####[facility] ([id number])[address] [facility] [address], [place] [address] eGFR (CKD-EPI) NON-RACE DEPENDENT >90 Normal >59 [facility] Comment on above: Result Comment: Repo rted eGFR is based on theD-EPI 2020 equation that doesnot use a race coefficient. Performed By: #### C BCA, CMP ####[facility] ([id number])[address] [address], [place] [address] Glucose [Mass/Vol] 75 mg/dL Normal 65-99 [facility] Comment on above: Performed By: #### C BCA, CMP ####[facility] ([id number])[address] [address] [place] [address] Potassium [Moles/Vol] 4.1 mmol/L Normal 3.5-5.0 [facility] Comment on above: Performed By: #### C BCA, CMP ####[facility] ([id number])[address] [address] [place] [address] Protein [Mass/Vol] 5.2 g/dL Low 6.0-8.0 [facility] Comment on above: Performed By: #### C BCA, CMP ####[facility] ([id number])[address] [address] [place] [address] Sodium [Moles/Vol] 138 mmol/L Normal 134-146 [facility] Comment on above: Performed By: #### C BCA, CMP ####[facility] ([id number])[address] [address] Urea nitrogen [Mass/Vol] 15 mg/dL Normal 5-27 [facility] Comment on above: Performed By: #### C BCA, CMP ####[facility] ([id number])[address] [address] Galactomannan Ag IA Qnon ASPERGILLUS AG - BLOOD ONLY See Below Normal [facility] Comment on above: Result Comment: NOTE TEST RESULT FLAG UNIT REF.RANGE Asper. Ag Ser,Qual Negative NegativeAspergillus Galactomannan antigen assay is used as an aid indiagnosis of invasive aspergillosis in immunocompromisedindividuals especially in post-stem cell transplant,hematological malignancies on chemotherapy, and HIV-positivepatients with very low CD4 T-cell counts. The test may alsobe used in disease prognostication and for monitoringresponse to anti-fungal therapy. False positive and falsenegative results are not uncommon. Clinical and radiologicalcorrelation is required.Aspergillus Ag,Ser 0.05 Index Value<=0.49 Test Performed By: [place] [address] Lard Mixer: Demond Jeff III, M.D. CLIA #[id number] H. capsulatum Ag (U) [Mass/V ol]on 06-30-2023 HISTOPLASMA ANTIGEN RESULT Not detected Normal Not Detected [facility] Comment on above: Result Comment: NOTE No Histoplasma antigen detected.False negative results may occur. Repeat testing on anew specimen should be considered if clinically indicated. HISTOPLASMA ANTIGEN VALUE Not detected Normal [facility] Comment on above: Result Comment: NOTE ADDITIONAL INFORMATION This test has been modified from the director of institutional giving'sinstructions. Its performance characteristics weredetermined by [facility] in a manner consistent withCLIA requirements. This test has not been cleared orapproved by the [place]. Food and Drug Administration.Test Performed by:[place] [id number] Director: Rey Nunez M.D. Ph.D.; CLIA# [id number] HISTOPLASMA ANTIBODIES BY HUI and Maria 06-30-2023 HISTOPLASMA AB,PRECP Not detected Normal Not Detected [facility] Comment on above: Result Comment: NOTE No Histoplasma antibodies were detected. This result does notexclude Histoplasma infection.Performed By: [employer] [place] [id number] Director: Kiko Coon MD, PhDCLIA Number: [id number] HISTOPLASMA MYCELIA,CF <1:8 Normal <1:8 [facility] Comment on above: Result Comment: NOTE INTERPRETIVE INFORMATION: Histoplasma Mycelia Antibodies by BUREAU DIRECTOR titer of 1:8 or greater is generally considered presumptiveevidence of histoplasmosis. A titer of 1:32 or greater or risingtiters indicate strong presumptive evidence of histoplasmosis.Cross reactions, usually at lower titers, may occur with otherfungal diseases. HISTOPLASMA YEAST,CF <1:8 Normal <1:8 [facility] Comment on above: Result Comment: NOTE INTERPRETIVE INFORMATION: Histoplasma Yeast Antibodies by BUREAU DIRECTOR titer of 1:8 or greater is generally considered presumptiveevidence of histoplasmosis. A titer of 1:32 or greater or risingtiters indicate strong presumptive evidence of histoplasmosis.Cross reactions, usually at lower titers, may occur with otherfungal diseases. Reference Lab Test IDon 04-0 Fungitell Assay See Below Normal [facility] Comment on above: Result Comment: NOTE TEST RESULT FLAG UNIT REF.RANGE (1,3) B-D Glucan, Qual Negative Negative(1,3) B-D Glucan <31 pg/mL <60Certain fungi, such as the genus Cryptococcus which producesvery low levels of (1,3)-??-D-glucan, may not result in serum(1,3)-??-D-glucan sufficiently elevated so as to be detectedby the assay. Infections with fungi of the order Mucoralessuch as Absidia, Mucor and Rhizopus which are not known toproduce (1,3)-??-D-glucan, are also observed to yield lowserum (1,3)-??-D-glucan titers. In addition, the yeast phaseof Blastomyces dermatitidis produces little (1,3)-??-D-glucanand may not be detected by the assay. Test Performed By: [place] [address] Lard Mixer: Demond Jeff III, M.D. CLIA #[id number] HISTOPLASMA AG See Below Normal [facility] Comment on above: Result Comment: NOTE TEST RESULT FLAG UNIT REF.RANGE Histoplasma Ag 0.00 ng/mL <0.20REPORTABLE RANGE: 2ng/mL - 20.0ng/mL; Results above 20.0ng/mL arereported as Positive, Above the Limit of QuantificationThis test was developed and its performance characteristicsdetermined by [email or web address]. It has not been clearedor approved by the FDA; however, FDA clearance or approvalis not currently required for clinical use. The results arenot intended to be used as the sole means for clinicaldiagnosis or patient management decisions. Test Performed by: [employer] [address] [place] [address] [facility] Lard Mixer: Amadeo Novak MD CLIA #[id number] Admission Noteon 06-29-2023 Admission Note [id number] Normal [facility] CBC AND AUTO DIFFon 06-29-19 24 Band form neutrophils/100 WBC (Bld) 1.0 % Normal [facility] Comment on above: Performed By: #### C TALISHA, CMP ####[facility] ([id number])[address] [facility], [address] [place] [address] JENY 1+ Abnormal NONE [facility] Comment on above: Performed By: #### C BCA, CMP ####[facility] ([id number])2130 [facility], [address] [place] [address] Erythrocyte distribution width (RBC) [Ratio] 17.2 % High 11.5-15.0 [facility] Comment on above: Performed By: #### C TALISHA, CMP ####[facility] ([id number])0 [address] [address], [place] [address] Hematocrit (Bld) [Volume fraction] 35.3 % Low 39-49 [facility] Comment on above: Performed By: #### C TALISHA, CMP ####[facility] ([id number])[address]129 [address] [address] [place] [address] Hemoglobin (Bld) [Mass/Vol] 11.6 g/dL Low 13.0-17.0 [facility] Comment on above: Performed By: #### C TALISHA, CMP ####[facility] ([id number])[address] [address] Lymphocytes (Bld) [#/Vol] 1.9 10*3/uL Normal 1.0-3.5 [facility] Comment on above: Performed By: #### C TALISHA, CMP ####[facility] ([id number])[address] [address] Lymphocytes/100 WBC (Bld) 7.0 % Normal [facility] Comment on above: Performed By: #### C TALISHA, CMP ####[facility] ([id number])[address]129 [address] [address] [place] [address] MCH (RBC) [Entitic mass] 29.8 pg Normal 27-34 [facility] Comment on above: Performed By: #### C BCA, CMP ####[facility] ([id number])0 [address] [address] [place] [address] MCHC (RBC) [Mass/Vol] 32.9 g/dL Normal 32-36 [facility] Comment on above: Performed By: #### C BCA, CMP ####[facility] ([id number])[address], [address], [place] [address] MCV (RBC) [Entitic vol] 91 fL Normal 80-100 [facility] Comment on above: Performed By: #### C TALISHA, CMP ####[facility] ([id number])[address], [address], [place] [address] Monocytes (Bld) [#/Vol] 2.8 10*3/uL High 0-0.9 [facility] Comment on above: Performed By: #### C TALISHA, CMP ####[facility] ([id number])[address], [address], [place] [address] Monocytes/100 WBC (Bld) 10.0 % Normal [facility] Comment on above: Performed By: #### Bob WOODALL, CMP ####[facility] ([id number])[address], [address], [place] [address] Neutrophils (Bld) [#/Vol] 23.0 10*3/uL High 1.5-6.6 [facility] Comment on above: Performed By: #### Bob WOODALL, CMP ####[facility] ([id number])[address], [address], [place] [address] OVALOCYTE 1+ Abnormal NONE [facility] Comment on above: Performed By: #### C TALISHA, CMP ####[facility] ([id number])[address], [address], [place] [address] Platelet mean volume (Bld) [Entitic vol] 8.0 fL Normal 7-12 [facility] Comment on above: Performed By: #### C TALISHA, CMP ####[facility] ([id number])[address], [address], [place] [address] Platelets (Bld) [#/Vol] 513 10*3/uL High 150-450 [facility] Comment on above: Performed By: #### C BCA, CMP ####[facility] ([id number])[address], [address], [place] [address] RBC COUNT 3.90 X10E12/L Low 4.10-5.70 [facility] Comment on above: Performed By: #### C BCA, CMP ####[facility] ([id number])[address], [address], [place] [address] SEG NEUTROPHIL 82.0 % Normal [facility] Comment on above: Performed By: #### C BCA, CMP ####[facility] ([id number])[address], [address] [place] [address] WBC (Bld) [#/Vol] 27.7 10*3/uL High 4.0-11.0 [facility] Comment on above: Performed By: #### C BCA, CMP ####[facility] ([id number])[address], [address], [place] [address] COMPREHENSIVE METABOLIC PANE Jalen 06-29-2023 Albumin [Mass/Vol] 2.3 g/dL Low 3.2-5.3 [facility] Comment on above: Performed By: #### C BCA, CMP ####[facility] ([id number])[address], [address], [place] [address] ALP [Catalytic activity/Vol] 100 U/L Normal 39-130 [facility] Comment on above: Performed By: #### C BCA, CMP ####[facility] ([id number])[address], [address], [place] [address] ALT [Catalytic activity/Vol] 23 U/L Normal 0-40 [facility] Comment on above: Performed By: #### C BCA, CMP ####[facility] ([id number])[address], [address], [place] [address] Anion gap [Moles/Vol] 8 mmol/L Normal 5-15 [facility] Comment on above: Performed By: #### C BCA, CMP ####[facility] ([id number])[address], [address], [place] [address] AST [Catalytic activity/Vol] 17 U/L Normal 0-41 [facility] Comment on above: Performed By: #### C BCA, CMP ####[facility] ([id number])[address], [address], [place] [address] Bilirubin [Mass/Vol] 0.5 mg/dL Normal 0.3-1.2 [facility] Comment on above: Performed By: #### C BCA, CMP ####[facility] ([id number])[address], [address], [place] [address] Calcium [Mass/Vol] 9.0 mg/dL Normal 8.5-10.5 [facility] Comment on above: Performed By: #### C BCA, CMP ####[facility] ([id number])[address], [address], [place] [address] Chloride [Moles/Vol] 99 mmol/L Normal 98-109 [facility] Comment on above: Performed By: #### C BCA, CMP ####[facility] ([id number])[address], [address], [place] [address] CO2 [Moles/Vol] 31 mmol/L Normal 22-32 [facility] Comment on above: Performed By: #### C BCA, CMP ####[facility] ([id number])[address], [address], [place] [address] Creatinine [Mass/Vol] 0.45 mg/dL Low 0.60-1.30 [facility] Comment on above: Result Comment: METH OD TRACEABLE TO IDMS STANDARD Performed By: #### C BCA, CMP ####[facility] ([id number])[address] [address], [place] [address] eGFR (CKD-EPI) NON-RACE DEPENDENT >90 Normal >59 [facility] Comment on above: Result Comment: Repo rted eGFR is based on theCKD-EPI 2020 equation that doesnot use a race coefficient. Performed By: #### C BCA, CMP ####[facility] ([id number])[address] [address] [address] Glucose [Mass/Vol] 112 mg/dL High 65-99 [facility] Comment on above: Performed By: #### C BCA, CMP ####[facility] ([id number])[address] [address], [place] [address] Potassium [Moles/Vol] 4.2 mmol/L Normal 3.5-5.0 [facility] Comment on above: Performed By: #### C BCA, CMP ####[facility] ([id number])[address] [address], [place] [address] Protein [Mass/Vol] 5.0 g/dL Low 6.0-8.0 [facility] Comment on above: Performed By: #### C BCA, CMP ####[facility] ([id number])[address] [address] [place] [address] Sodium [Moles/Vol] 138 mmol/L Normal 134-146 [facility] Comment on above: Performed By: #### C BCA, CMP ####[facility] ([id number])[address] [address] [place] [address] Urea nitrogen [Mass/Vol] 12 mg/dL Normal 5-27 [facility] Comment on above: Performed By: #### C BCA, CMP ####[facility] ([id number])[address] [address] [place] [address] RESP PATHOGENS/WAHM-UvO-5jw 06-29-2023 Respiratory pathogens DNA and RNA panel DENIS+non-probe (Nph) Normal [facility] Comment on above: Performed By: #### 8 2159-5 ####[facility] ([id number])[address], [address], [place] [address] XR CHEST 1 VWon 06-29-2023 XR CHEST 1 VW Normal [facility] CBC AND AUTO DIFFon 06-28-19 24 ABSOLUTE BASOPHIL 0.1 X10E9/L Normal 0.0-0.2 [facility] Comment on above: Performed By: #### C TALISHA CMP, 2531-0 ####[facility] ([id number])[address], [address] [place] [address] ABSOLUTE NEUTROPHIL 17.3 X10E9/L High 1.5-6.6 [facility] Comment on above: Performed By: #### Bob BCA CMP, 2531-0 ####[facility] ([id number])[address], [address] [place] [address] Basophils/100 WBC (Bld) 0.5 % Normal [facility] Comment on above: Performed By: #### Bob BCA CMP, 2531-0 ####[facility] ([id number])[address], [address] [place] [address] Eosinophils (Bld) [#/Vol] 0.0 10*3/uL Normal 0.0-0.4 [facility] Comment on above: Performed By: #### C BCA, CMP, 2531-0 ####[facility] ([id number])[address], [address] [place] [address] Eosinophils/100 WBC (Bld) 0.0 % Normal [facility] Comment on above: Performed By: #### C BCA, CMP, 2-0 ####[facility] ([id number])[address] [address] [place] [address] Erythrocyte distribution width (RBC) [Ratio] 17.3 % High 11.5-15.0 [facility] Comment on above: Performed By: #### Bob WOODALL CMP, 0 ####[facility] ([id number])[address] [address], [place] [address] Hematocrit (Bld) [Volume fraction] 36.1 % Low 39-49 [facility] Comment on above: Performed By: #### Bob WOODALL CMP, 0 ####[facility] ([id number])[address] [address], [place] [address] Hemoglobin (Bld) [Mass/Vol] 12.0 g/dL Low 13.0-17.0 [facility] Comment on above: Performed By: #### Bob WOODALL CMP, 0 ####[facility] ([id number])[address] [address] Lymphocytes (Bld) [#/Vol] 2.0 10*3/uL Normal 1.0-3.5 [facility] Comment on above: Performed By: #### Bob WOODALL CMP, 0 ####[facility] ([id number])[address] [address] Lymphocytes/100 WBC (Bld) 8.6 % Normal [facility] Comment on above: Performed By: #### Bob WOODALL CMP, 0 ####[facility] ([id number])[address] [address], [place] [address] MCH (RBC) [Entitic mass] 30.4 pg Normal 27-34 [facility] Comment on above: Performed By: #### Bob WOODALL CMP, 0 ####[facility] ([id number])[address] [address] MCHC (RBC) [Mass/Vol] 33.1 g/dL Normal 32-36 [facility] Comment on above: Performed By: #### C MAGALI WOODALL, 2531-0 ####[facility] ([id number])[address], [address], [place] [address] MCV (RBC) [Entitic vol] 92 fL Normal 80-100 [facility] Comment on above: Performed By: #### Bob WOODALL CMP, 2531-0 ####[facility] ([id number])0 [address] [address] [place] [address] Monocytes (Bld) [#/Vol] 3.5 10*3/uL High 0-0.9 [facility] Comment on above: Performed By: #### Bob WOODALL CMP, 2531-0 ####[facility] ([id number])0 [facility] [address] [place] [address] Monocytes/100 WBC (Bld) 15.3 % Normal [facility] Comment on above: Performed By: #### Bob WOODALL CMP, 2531-0 ####[facility] ([id number])0 [facility] [address] [place] [address] Neutrophils/100 WBC (Bld) 75.6 % Normal [facility] Comment on above: Performed By: #### Bob WOODALL CMP, 2531-0 ####[facility] ([id number])[address], [address], [place] [address] Platelet mean volume (Bld) [Entitic vol] 8.5 fL Normal 7-12 [facility] Comment on above: Performed By: #### Bob WOODALL CMP, 2531-0 ####[facility] ([id number])[address], [address], [place] [address] Platelets (Bld) [#/Vol] 486 10*3/uL High 150-450 [facility] Comment on above: Performed By: #### C TALISHA, CMP, 253-0 ####[facility] ([id number])[address], [address], [place] [address] RBC COUNT 3.93 X10E12/L Low 4.10-5.70 [facility] Comment on above: Performed By: #### C BCA, CMP, 2531-0 ####[facility] ([id number])[address], [address] [place] [address] WBC (Bld) [#/Vol] 22.9 10*3/uL High 4.0-11.0 [facility] Comment on above: Performed By: #### C BCA, CMP, 2531-0 ####[facility] ([id number])[address], [address], [place] [address] COMPREHENSIVE METABOLIC PANE Jalen 06-28-2023 Albumin [Mass/Vol] 2.3 g/dL Low 3.2-5.3 [facility] Comment on above: Performed By: #### C BCA, CMP, 2531-0 ####[facility] ([id number])[address] [address], [place] [address] ALP [Catalytic activity/Vol] 102 U/L Normal 39-130 [facility] Comment on above: Performed By: #### C BCA, CMP, 2531-0 ####[facility] ([id number])[address] [address], [place] [address] ALT [Catalytic activity/Vol] 23 U/L Normal 0-40 [facility] Comment on above: Performed By: #### C BCA, CMP, 2531-0 ####[facility] ([id number])[address] [address] [place] [address], [place] [address] Anion gap [Moles/Vol] 9 mmol/L Normal 5-15 [facility] Comment on above: Performed By: #### C BCA, CMP, 2532-0 ####[facility] ([id number])[address], [address], [place] [address] AST [Catalytic activity/Vol] 17 U/L Normal 0-41 [facility] Comment on above: Performed By: #### C BCA, CMP, 253-0 ####[facility] ([id number])[address], [address], [place] [address] Bilirubin [Mass/Vol] 0.5 mg/dL Normal 0.3-1.2 [facility] Comment on above: Performed By: #### C BCA, CMP, 2531-0 ####[facility] ([id number])[address], [address], [place] [address] Calcium [Mass/Vol] 8.7 mg/dL Normal 8.5-10.5 [facility] Comment on above: Performed By: #### C BCA, CMP, 2531-0 ####[facility] ([id number])[address], [address], [place] [address] Chloride [Moles/Vol] 103 mmol/L Normal 98-109 [facility] Comment on above: Performed By: #### C BCA, CMP, 2531-0 ####[facility] ([id number])[address], [address], [place] [address] CO2 [Moles/Vol] 28 mmol/L Normal 22-32 [facility] Comment on above: Performed By: #### C BCA, CMP, 2531-0 ####[facility] ([id number])[address], [address], [place] [address] Creatinine [Mass/Vol] 0.45 mg/dL Low 0.60-1.30 [facility] Comment on above: Result Comment: METH OD TRACEABLE TO IDMS STANDARD Performed By: #### C BCA, CMP, 2531-0 ####[facility] ([id number])[address] [address], [place] [address] eGFR (CKD-EPI) NON-RACE DEPENDENT >90 Normal >59 [facility] Comment on above: Result Comment: Repo rted eGFR is based on theCKD-EPI 2020 equation that doesnot use a race coefficient. Performed By: #### C TALISHA CMP, 2532-0 ####[facility] ([id number])[address] [address] [place] [address] Glucose [Mass/Vol] 190 mg/dL High 65-99 [facility] Comment on above: Performed By: #### C TALISHA CMP, 253-0 ####[facility] ([id number])[address] [address], [place] [address] Potassium [Moles/Vol] 4.1 mmol/L Normal 3.5-5.0 [facility] Comment on above: Performed By: #### C TALISHA, CMP, 253-0 ####[facility] ([id number])[address] [address], [place] [address] Protein [Mass/Vol] 5.6 g/dL Low 6.0-8.0 [facility] Comment on above: Performed By: #### C BCA, CMP, 253-0 ####[facility] ([id number])[address] [address], [place] [address] Sodium [Moles/Vol] 140 mmol/L Normal 134-146 [facility] Comment on above: Performed By: #### C BCA, CMP, 2532-0 ####[facility] ([id number])[address] [place] [address] Urea nitrogen [Mass/Vol] 11 mg/dL Normal 5-27 [facility] Comment on above: Performed By: #### C BCA, CMP, 2532-0 ####[facility] ([id number])[address] [address] [place] [address], [place] [address] LDH [Catalytic activity/Vol] on 06-28-2023 LDH 241 U/L High 100-235 [facility] Comment on above: Performed By: #### C BCA, CMP, 2532-0 ####[facility] ([id number])[address], [address] [place] [address] aPTT Coag (PPP) [Time]on aPTT Coag (Bld) [Time] 47 s High 26-37 [facility] Comment on above: Performed By: #### 1 4979-9 ####[facility] ([id number])[address], [address] [place] [address], [place] [address] aPTT Coag (Bld) [Time] 34 s Normal [facility]37 [facility] Comment on above: Performed By: #### 1 4979-9 ####[facility] ([id number])[address], [address] [place] [address], [place] [address] aPTT Coag (Bld) [Time] 36 s Normal [facility] Comment on above: Performed By: #### 1 4979-9 ####[facility] ([id number])[address], [address] [place] [address], [place] [address] AND DIFFon 2023 BODY FLUID COMMENT Interpreta tion--- ----- Normal [facility] Comment on above: Result Comment: Refe rence values for this fluid type areundefined, as fluid accumulation isconsidered abnormal. Performed By: #### F ALB, FAMY, FLD, FLIP, FTP, FTRIG, BFCT ####[facility] ([id number])[address], [address], [place] [address] FLUID CLARITY CLEAR Normal [facility] Comment on above: Performed By: #### F ALB, FAMY, FLD, FLIP, FTP, FTRIG, BFCT ####[facility] ([id number])[address], [address], [place] [address] FLUID COLOR YELLOW Normal [facility] Comment on above: Performed By: #### F ALB, FAMY, FLD, FLIP, FTP, FTRIG, BFCT ####[facility] ([id number])[address], [address], [place] [address] FLUID LYMPHOCYTE 39 % Normal [facility] Comment on above: Performed By: #### F ALB, FAMY, FLD, FLIP, FTP, FTRIG, BFCT ####[facility] ([id number])[address], [address] [place] [address] FLUID MESOTHELIAL 8 % Normal [facility] Comment on above: Performed By: #### F ALB, FAMY, FLD, FLIP, FTP, FTRIG, BFCT ####[facility] ([id number])[address], [address] [place] [address], [place] [address] FLUID NEUTROPHILS 18 % Normal [facility] Comment on above: Performed By: #### F ALB, FAMY, FLD, FLIP, FTP, FTRIG, BFCT ####[facility] ([id number])[address], [address] [place] [address] 145 /uL Normal [facility] Comment on above: Performed By: #### F ALB, FAMY, FLD, FLIP, FTP, FTRIG, BFCT ####[facility] ([id number])[address], [address] [place] [address] FLUID SPECIMEN TYPE PLEURAL FLUID Normal [facility] Comment on above: Result Comment: LANG T Performed By: #### F ALB, FAMY, FLD, FLIP, FTP, FTRIG, BFCT ####[facility] ([id number])[address], [address] [place] [address] MACROPHAGES 35 % Normal [facility] Comment on above: Performed By: #### F ALB, FAMY, FLD, FLIP, FTP, FTRIG, BFCT ####[facility] ([id number])[address], [address] [place] [address] 556 /uL Normal [facility] Comment on above: Performed By: #### F ALB, FAMY, FLD, FLIP, FTP, FTRIG, BFCT ####[facility] ([id number])[address], [address] [place] [address] CBC AND AUTO DIFFon 06-27-19 24 ABSOLUTE BASOPHIL 0.0 X10E9/L Normal 0.0-0.2 [facility] Comment on above: Performed By: #### Bob WOODALL CMP, 17874-1 ####[facility] ([id number])[address], [address] [place] [address] ABSOLUTE NEUTROPHIL 17.6 X10E9/L High 1.5-6.6 [facility] Comment on above: Performed By: #### Bob WOODALL CMP, 27402-7 ####[facility] ([id number])[address], [address] [place] [address] ACANTHOCYTE 1+ Abnormal NONE [facility] Comment on above: Performed By: #### Bob WOODALL CMP, 88348-2 ####[facility] ([id number])[address] [address] [place] [address] Basophils/100 WBC (Bld) 0.1 % Normal [facility] Comment on above: Performed By: #### Bob WOODALL, CMP, 79072-8 ####[facility] ([id number])[address] [address] [place] [address] Eosinophils (Bld) [#/Vol] 0.0 10*3/uL Normal 0.0-0.4 [facility] Comment on above: Performed By: #### C TALISHA, CMP, 35251-9 ####[facility] ([id number])[address] [address], [place] [address] Eosinophils/100 WBC (Bld) 0.1 % Normal [facility] Comment on above: Performed By: #### C TALISHA CMP, 73628-9 ####[facility] ([id number])[address] [address], [place] [address] Erythrocyte distribution width (RBC) [Ratio] 16.8 % High 11.5-15.0 [facility] Comment on above: Performed By: #### C TALISHA CMP, 43649-3 ####[facility] ([id number])[address] [address], [place] [address] Hematocrit (Bld) [Volume fraction] 33.7 % Low 39-49 [facility] Comment on above: Performed By: #### C TALISHA, CMP, 86989-1 ####[facility] ([id number])[address] [address] Hemoglobin (Bld) [Mass/Vol] 11.0 g/dL Low 13.0-17.0 [facility] Comment on above: Performed By: #### C TALISHA CMP, 47423-7 ####[facility] ([id number])[address] [address] Lymphocytes (Bld) [#/Vol] 1.9 10*3/uL Normal 1.0-3.5 [facility] Comment on above: Performed By: #### C BCA, CMP, 48974-9 ####[facility] ([id number])[address] [address], [place] [address] Lymphocytes/100 WBC (Bld) 8.1 % Normal [facility] Comment on above: Performed By: #### C BCA, CMP, 28325-8 ####[facility] ([id number])[address], [place] [address] MCH (RBC) [Entitic mass] 30.0 pg Normal 27-34 [facility] Comment on above: Performed By: #### C BCA, CMP, 87298-9 ####[facility] ([id number])[address], [place] [address] MCHC (RBC) [Mass/Vol] 32.7 g/dL Normal 32-36 [facility] Comment on above: Performed By: #### C BCA, CMP, 84650-0 ####[facility] ([id number])[address] [place] [address] MCV (RBC) [Entitic vol] 92 fL Normal 80-100 [facility] Comment on above: Performed By: #### Bob BCA, CMP, 17727-2 ####[facility] ([id number])[address] [address] [place] [address] Monocytes (Bld) [#/Vol] 3.9 10*3/uL High 0-0.9 [facility] Comment on above: Performed By: #### C BCA, CMP, 89894-9 ####[facility] ([id number])[address] [address] [place] [address] Monocytes/100 WBC (Bld) 16.5 % Normal [facility] Comment on above: Performed By: #### C BCA, CMP, 52250-8 ####[facility] ([id number])[address] [address] [place] [address] Neutrophils/100 WBC (Bld) 75.2 % Normal [facility] Comment on above: Performed By: #### C BCA, CMP, 09869-5 ####[facility] ([id number])[address] [address], [place] [address] Platelet mean volume (Bld) [Entitic vol] 7.9 fL Normal 7-12 [facility] Comment on above: Performed By: #### C BCA, CMP, 58435-3 ####[facility] ([id number])[address] [address], [place] [address] Platelets (Bld) [#/Vol] 475 10*3/uL High 150-450 [facility] Comment on above: Performed By: #### C BCA, CMP, 00863-3 ####[facility] ([id number])[address] [address], [place] [address] POLYCHROMASIA 1+ Abnormal NONE [facility] Comment on above: Performed By: #### Bob BCA, CMP, 14272-9 ####[facility] ([id number])[address] [address], [place] [address] RBC COUNT 3.67 X10E12/L Low 4.10-5.70 [facility] Comment on above: Performed By: #### Bob BCA, CMP, 45286-4 ####[facility] ([id number])[address] [address] WBC (Bld) [#/Vol] 23.4 10*3/uL High 4.0-11.0 [facility] Comment on above: Performed By: #### Bob BCA, CMP, 32394-6 ####[facility] ([id number])[address] [address], [place] [address] COMPREHENSIVE METABOLIC PANE Jalen 06-27-2023 Albumin [Mass/Vol] 2.1 g/dL Low 3.2-5.3 [facility] Comment on above: Performed By: #### C BCA, CMP, 05474-1 ####[facility] ([id number])[address] [address], [place] [address] ALP [Catalytic activity/Vol] 93 U/L Normal 39-130 [facility] Comment on above: Performed By: #### C BCA, CMP, 12167-1 ####[facility] ([id number])[address], [place] [address] ALT [Catalytic activity/Vol] 22 U/L Normal 0-40 [facility] Comment on above: Performed By: #### C BCA, CMP, 91438-8 ####[facility] ([id number])[address], [place] [address] Anion gap [Moles/Vol] 7 mmol/L Normal 5-15 [facility] Comment on above: Performed By: #### C BCA, CMP, 70616-3 ####[facility] ([id number])[address], [place] [address] AST [Catalytic activity/Vol] 17 U/L Normal 0-41 [facility] Comment on above: Performed By: #### C BCA, CMP, 95644-6 ####[facility] ([id number])[address], [place] [address] Bilirubin [Mass/Vol] 0.6 mg/dL Normal 0.3-1.2 [facility] Comment on above: Performed By: #### C BCA, CMP, 85241-2 ####[facility] ([id number])[address], [place] [address] Calcium [Mass/Vol] 8.2 mg/dL Low 8.5-10.5 [facility] Comment on above: Performed By: #### C BCA, CMP, 74532-2 ####[facility] ([id number])[address], [place] [address] Chloride [Moles/Vol] 103 mmol/L Normal 98-109 [facility] Comment on above: Performed By: #### C BCA, CMP, 10865-7 ####[facility] ([id number])[address], [place] [address] CO2 [Moles/Vol] 26 mmol/L Normal 22-32 [facility] Comment on above: Performed By: #### C MAGALI WOODALL, 06526-8 ####[facility] ([id number])[address], [place] [address] Creatinine [Mass/Vol] 0.48 mg/dL Low 0.60-1.30 [facility] Comment on above: Result Comment: METH OD TRACEABLE TO IDMS STANDARD Performed By: #### C MAGALI WOODALL, 25311-2 ####[facility] ([id number])[address] [address], [place] [address] eGFR (CKD-EPI) NON-RACE DEPENDENT >90 Normal >59 [facility] Comment on above: Result Comment: Repo rted eGFR is based on theCKD-EPI 2020 equation that doesnot use a race coefficient. Performed By: #### C MAGALI WOODALL, 26083-9 ####[facility] ([id number])[address] [address], [place] [address] Glucose [Mass/Vol] 115 mg/dL High 65-99 [facility] Comment on above: Performed By: #### C MAGALI WOODALL, 56964-1 ####[facility] ([id number])[address] [address], [place] [address] Potassium [Moles/Vol] 4.3 mmol/L Normal 3.5-5.0 [facility] Comment on above: Performed By: #### C TALISHA CMP, 11116-2 ####[facility] ([id number])[address] [address], [place] [address] Protein [Mass/Vol] 4.7 g/dL Low 6.0-8.0 [facility] Comment on above: Performed By: #### C BCA, CMP, 93839-2 ####[facility] ([id number])[address] [place] [address] Sodium [Moles/Vol] 136 mmol/L Normal 134-146 [facility] Comment on above: Performed By: #### C BCA, CMP, 87581-6 ####[facility] ([id number])[address] [place] [address] Urea nitrogen [Mass/Vol] 11 mg/dL Normal 5-27 [facility] Comment on above: Performed By: #### C BCA, CMP, 10197-1 ####[facility] ([id number])[address] [place] [address] Cytologyon 06-27-2023 Cytology Normal [facility] Comment on above: Result Comment: [facility] [employer] [facility] [address] [place] [address] Cytology ConsultationPatient Name:YOBANY TORSTEN Kirkland:1955 (Age: 67)Gender:MTaken:06/27/2023eported:06/30/2023 16:47Physician(s):Fletcher Huston M.D. ([phone])Copy To:[facility] Jacobs [facility]ession #:[id number]. Rec. #:[id number]: #[id number] Cytologic DiagnosisRight pleural fluid:No malignant cells identified.k/06/30/2023Interpretation [place] [address], License number: [id number].Electronically Signed Out By Derek Shah MDClinical HistoryMass of lung (R91.8).Gross DescriptionReceived was 800 mL of yellow fluid unfixed labeled as Yobany, right pleural fluid . CytoLyt added in lab. 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), Level 2 H&E, Non SPRAY DRIER ThinPrepFee Code(s):1; 22643, 34064 FLUID ALBUMINon 06-27-2023 ALB SPECIMEN TYPE PLEURAL FLUID Normal [facility] Comment on above: Result Comment: LANG Soriano Performed By: #### F ALB, FAMY, FLD, FLIP, FTP, FTRIG, BFCT ####[facility] ([id number])[address], [address] [place] [address] FLUID ALBUMIN <1.5 Normal [facility] Comment on above: Result Comment: The reference interval and othermethod performance specifications areunavailable for this body fluid.Comparison of this result to serumor plasma is recommended. Performed By: #### F ALB, FAMY, FLD, FLIP, FTP, FTRIG, BFCT ####[facility] ([id number])[address], [address] [place] [address] FLUID AMYLASEon 06-27-2023 BARBY SPECIMEN TYPE PLEURAL FLUID Normal [facility] Comment on above: Result Comment: LANG Soriano Performed By: #### F ALB, FAMY, FLD, FLIP, FTP, FTRIG, BFCT ####[facility] ([id number])[address], [address] [place] [address] FLUID AMYLASE <10 Normal [facility] Comment on above: Result Comment: The reference interval and othermethod performance specifications areunavailable for this body fluid.Comparison of this result to serumor plasma is recommended. Performed By: #### F ALB, FAMY, FLD, FLIP, FTP, FTRIG, BFCT ####[facility] ([id number])[address], [address] [place] [address] FLUID CULTUREon 06-27-2023 Bacteria identified Aer cx Nom (Body fld) GRAM STAIN WHITE BLOOD CELLS PRESENT NO ORGANISMS SEEN ON CONCENTRATED SMEAR CULTURE RESULTS NO GROWTH 5 DAYS Normal [facility] Comment on above: Performed By: #### 6 10-6 ####[facility] ([id number])[address], [address] [place] [address] FLUID LDHon 06-27-2023 FLUID LDH 119 U/L Normal [facility] Comment on above: Result Comment: The reference interval and othermethod performance specifications areunavailable for this body fluid.Comparison of this result to serumor plasma is recommended. Performed By: #### F ALB, FAMY, FLD, FLIP, FTP, FTRIG, BFCT ####[facility] ([id number])[address], [address] [place] [address] LD SPECIMEN TYPE PLEURAL FLUID Normal [facility] Comment on above: Result Comment: RIGPankaj T Performed By: #### F ALB, FAMY, FLD, FLIP, FTP, FTRIG, BFCT ####[facility] ([id number])[address], [address] [place] [address] FLUID LIPASEon 06-27-2023 FLUID LIPASE <3 Normal [facility] Comment on above: Result Comment: The reference interval and othermethod performance specifications areunavailable for this body fluid.Comparison of this result to serumor plasma is recommended. Performed By: #### F ALB, FAMY, FLD, FLIP, FTP, FTRIG, BFCT ####[facility] ([id number])[address], [address] [place] [address] LIPASE SPECIMEN TYPE PLEURAL FLUID Normal [facility] Comment on above: Result Comment: RIGH T Performed By: #### F ALB, FAMY, FLD, FLIP, FTP, FTRIG, BFCT ####[facility] ([id number])[address], [address] [place] [address] FLUID T. PROTEINon 4 FLUID TOT. PROTEIN 2.7 g/dL Normal [facility] Comment on above: Result Comment: The reference interval and othermethod performance specifications areunavailable for this body fluid.Comparison of this result to serumor plasma is recommended. Performed By: #### F ALB, FAMY, FLD, FLIP, FTP, FTRIG, BFCT ####[facility] ([id number])[address], [address] [place] [address], [place] [address] TP SPECIMEN TYPE PLEURAL FLUID Normal [facility] Comment on above: Result Comment: LANG Soriano Performed By: #### F ALB, FAMY, FLD, FLIP, FTP, FTRIG, BFCT ####[facility] ([id number])[address], [address] [place] [address] FLUID TRIGLYCERIDEon 024 FLUID TRIGLYCERIDE 24 mg/dL Normal [facility] Comment on above: Result Comment: The reference interval and othermethod performance specifications areunavailable for this body fluid.Comparison of this result to serumor plasma is recommended. Performed By: #### F ALB, FAMY, FLD, FLIP, FTP, FTRIG, BFCT ####[facility] ([id number])[address], [address] [place] [address] TRIG SPECIMEN TYPE PLEURAL FLUID Normal [facility] Comment on above: Result Comment: LANG Soriano Performed By: #### F ALB, FAMY, FLD, FLIP, FTP, FTRIG, BFCT ####[facility] ([id number])[address], [address] [place] [address] Lactate (P herminio) [Moles/Vol]o n 06-27-2023 Lactate [Moles/Vol] 2.1 mmol/L High 0.4-2.0 [facility] Comment on above: Performed By: #### 3 2132-1 ####[facility] ([id number])[address], [address] [place] [address] LACTATE W/REFLEX 2.2 mmol/L High 0.4-2.0 [facility] Comment on above: Performed By: #### 3 2133-1 ####[facility] ([id number])[address], [address], [place] [address] LACTATE W/REFLEX 1.3 mmol/L Normal 0.4-2.0 [facility] Comment on above: Result Comment: Resu lt did not trigger repeat Lactate,re-order if needed. Performed By: #### C BCA, CMP, 67444-5 ####[facility] ([id number])[address], [address], [place] [address] Lactate [Moles/Vol] 1.9 mmol/L Normal 0.4-2.0 [facility] Comment on above: Performed By: #### 3 2132-1 ####[facility] ([id number])[address], [address] [place] [address] XR CHEST 1 VWon 06-27-2023 XR CHEST 1 VW Normal [facility] aPTT Coag (PPP) [Time]on aPTT Coag (Bld) [Time] 34 s Normal 26-37 [facility] Comment on above: Performed By: #### 1 4979-9 ####[facility] ([id number])[address], [address] [place] [address] 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 Performed By: #### B FCT ####[facility] ([id number])[address], [address] [place] [address] FLUID CLARITY BLOODY Normal [facility] Comment on above: Performed By: #### B FCT ####[facility] ([id number])[address], [address], [place] [address] FLUID COLOR RED Normal [facility] Comment on above: Performed By: #### B FCT ####[facility] ([id number])[address], [address] [place] [address] FLUID LYMPHOCYTE 5 % Normal [facility] Comment on above: Performed By: #### B FCT ####[facility] ([id number])[address], [address] [place] [address] FLUID NEUTROPHILS 89 % Normal [facility] Comment on above: Performed By: #### B FCT ####[facility] ([id number])[address], [address] [place] [address] [place] [address] /uL Normal [facility] Comment on above: Performed By: #### B FCT ####[facility] ([id number])[address], [address] [place] [address] FLUID SPECIMEN TYPE BRONCHIAL WASHING Normal [facility] Comment on above: Performed By: #### B FCT ####[facility] ([id number])[address], [address], [place] [address] MACROPHAGES 6 % Normal [facility] Comment on above: Performed By: #### B FCT ####[facility] ([id number])[address], [address], [place] [address] 141 /uL Normal [facility] Comment on above: Performed By: #### B FCT ####[facility] ([id number])[address], [address], [place] [address] CBC AND AUTO DIFFon 06-26-19 24 ABSOLUTE BASOPHIL 0.0 X10E9/L Normal 0.0-0.2 [facility] Comment on above: Performed By: #### C TALISHA CMP, 96388-2 ####[facility] ([id number])[address], [address], [place] [address] ABSOLUTE NEUTROPHIL 12.5 X10E9/L High 1.5-6.6 [facility] Comment on above: Performed By: #### Bob WOODALL, CMP, 30137-4 ####[facility] ([id number])[address], [place] [address] Basophils/100 WBC (Bld) 0.1 % Normal [facility] Comment on above: Performed By: #### Bob WOODALL, CMP, 29344-1 ####[facility] ([id number])[address] [address], [place] [address] Eosinophils (Bld) [#/Vol] 0.0 10*3/uL Normal 0.0-0.4 [facility] Comment on above: Performed By: #### Bob WOODALL, CMP, 25168-2 ####[facility] ([id number])[address] [address] [place] [address] Eosinophils/100 WBC (Bld) 0.1 % Normal [facility] Comment on above: Performed By: #### C TALISHA, CMP, 37741-7 ####[facility] ([id number])[address], [address] [place] [address] Erythrocyte distribution width (RBC) [Ratio] 16.9 % High 11.5-15.0 [facility] Comment on above: Performed By: #### C BCA, CMP, 99090-4 ####[facility] ([id number])[address] [address] [place] [address] Hematocrit (Bld) [Volume fraction] 34.8 % Low 39-49 [facility] Comment on above: Performed By: #### C BCA, CMP, 94785-2 ####[facility] ([id number])[address] [address], [place] [address] Hemoglobin (Bld) [Mass/Vol] 11.4 g/dL Low 13.0-17.0 [facility] Comment on above: Performed By: #### C BCA, CMP, 51521-3 ####[facility] ([id number])[address] [address] Lymphocytes (Bld) [#/Vol] 2.0 10*3/uL Normal 1.0-3.5 [facility] Comment on above: Performed By: #### C BCA, CMP, 42776-4 ####[facility] ([id number])[address] [address] Lymphocytes/100 WBC (Bld) 10.6 % Normal [facility] Comment on above: Performed By: #### C BCA, CMP, 82911-9 ####[facility] ([id number])[address] [address] MCH (RBC) [Entitic mass] 30.1 pg Normal 27-34 [facility] Comment on above: Performed By: #### C BCA, CMP, 43479-3 ####[facility] ([id number])[address] [address] MCHC (RBC) [Mass/Vol] 32.9 g/dL Normal 32-36 [facility] Comment on above: Performed By: #### C BCA, CMP, 66147-3 ####[facility] ([id number])[address], [place] [address] MCV (RBC) [Entitic vol] 91 fL Normal 80-100 [facility] Comment on above: Performed By: #### Bob WOODALL CMP, 20137-6 ####[facility] ([id number])[address], [place] [address] Monocytes (Bld) [#/Vol] 4.1 10*3/uL High 0-0.9 [facility] Comment on above: Performed By: #### Bob WOODALL CMP, 27779-6 ####[facility] ([id number])[address], [place] [address] Monocytes/100 WBC (Bld) 22.2 % Normal [facility] Comment on above: Performed By: #### Bob WOODALL CMP, 03728-4 ####[facility] ([id number])[address], [place] [address] Neutrophils/100 WBC (Bld) 67.0 % Normal [facility] Comment on above: Performed By: #### Bob WOODALL CMP, 95706-0 ####[facility] ([id number])[address], [place] [address] Platelet mean volume (Bld) [Entitic vol] 8.1 fL Normal 7-12 [facility] Comment on above: Performed By: #### Bob WOODALL CMP, 20277-4 ####[facility] ([id number])[address], [place] [address] Platelets (Bld) [#/Vol] 483 10*3/uL High 150-450 [facility] Comment on above: Performed By: #### Bob WOODALL, CMP, 17878-0 ####[facility] ([id number])[address], [place] [address] POLYCHROMASIA 1+ Abnormal NONE [facility] Comment on above: Performed By: #### C BCA, CMP, 50261-2 ####[facility] ([id number])[address], [place] [address] RBC COUNT 3.80 X10E12/L Low 4.10-5.70 [facility] Comment on above: Performed By: #### C BCA, CMP, 80910-1 ####[facility] ([id number])[address], [address] [place] [address] WBC (Bld) [#/Vol] 18.7 10*3/uL High 4.0-11.0 [facility] Comment on above: Performed By: #### C BCA, CMP, 09661-0 ####[facility] ([id number])[address], [place] [address] COMPREHENSIVE METABOLIC PANE Jalen 06-26-2023 Albumin [Mass/Vol] 2.1 g/dL Low 3.2-5.3 [facility] Comment on above: Performed By: #### C BCA, CMP, 16490-3 ####[facility] ([id number])[address], [place] [address] ALP [Catalytic activity/Vol] 105 U/L Normal 39-130 [facility] Comment on above: Performed By: #### C BCA, CMP, 23012-2 ####[facility] ([id number])[address] [address], [place] [address] ALT [Catalytic activity/Vol] 29 U/L Normal 0-40 [facility] Comment on above: Performed By: #### C BCA, CMP, 33110-4 ####[facility] ([id number])[address], [place] [address] Anion gap [Moles/Vol] 7 mmol/L Normal 5-15 [facility] Comment on above: Performed By: #### C BCA, CMP, 15048-5 ####[facility] ([id number])[address], [place] [address] AST [Catalytic activity/Vol] 34 U/L Normal 0-41 [facility] Comment on above: Performed By: #### C BCA, CMP, 42509-2 ####[facility] ([id number])[address], [place] [address] Bilirubin [Mass/Vol] 0.7 mg/dL Normal 0.3-1.2 [facility] Comment on above: Performed By: #### C BCA, CMP, 46158-4 ####[facility] ([id number])[address], [place] [address] Calcium [Mass/Vol] 8.0 mg/dL Low 8.5-10.5 [facility] Comment on above: Performed By: #### C BCA, CMP, 48058-5 ####[facility] ([id number])[address], [place] [address] Chloride [Moles/Vol] 101 mmol/L Normal 98-109 [facility] Comment on above: Performed By: #### C BCA, CMP, 57350-4 ####[facility] ([id number])[address], [place] [address] CO2 [Moles/Vol] 28 mmol/L Normal 22-32 [facility] Comment on above: Performed By: #### C BCA, CMP, 22653-9 ####[facility] ([id number])[address], [place] [address] Creatinine [Mass/Vol] 0.50 mg/dL Low 0.60-1.30 [facility] Comment on above: Result Comment: METH OD TRACEABLE TO IDMS STANDARD Performed By: #### C BCA, CMP, 74056-4 ####[facility] ([id number])[address] [address], [place] [address] eGFR (CKD-EPI) NON-RACE DEPENDENT >90 Normal >59 [facility] Comment on above: Result Comment: Repo rted eGFR is based on theCKD-EPI 2020 equation that doesnot use a race coefficient. Performed By: #### C BCA, CMP, 31138-2 ####[facility] ([id number])[address] [address], [place] [address] Glucose [Mass/Vol] 98 mg/dL Normal 65-99 [facility] Comment on above: Performed By: #### C BCA, CMP, 98409-4 ####[facility] ([id number])[address] [address], [place] [address] Potassium [Moles/Vol] 3.9 mmol/L Normal 3.5-5.0 [facility] Comment on above: Performed By: #### C BCA, CMP, 32584-2 ####[facility] ([id number])[address] [address], [place] [address] Protein [Mass/Vol] 4.8 g/dL Low 6.0-8.0 [facility] Comment on above: Performed By: #### C BCA, CMP, 83838-3 ####[facility] ([id number])[address] [address], [place] [address] Sodium [Moles/Vol] 136 mmol/L Normal 134-146 [facility] Comment on above: Performed By: #### C BCA, CMP, 71172-5 ####[facility] ([id number])[address] [address], [place] [address] Urea nitrogen [Mass/Vol] 11 mg/dL Normal 5-27 [facility] Comment on above: Performed By: #### C BCA, CMP, 50937-3 ####[facility] ([id number])[address] [place] [address], [address] [place] [address] Cytologyon 06-26-2023 Cytology Normal [facility] Comment on above: Result Comment: [facility] [address] [place] [address] Cytology ConsultationPatient Name:TORSTEN HAYWOOD:1955 (Age: 67)Gender:MTaken:06/26/2023eported:06/29/2023 16:03Physician(s):Harvinder Berg M.D. ([phone])Copy To:MONIE Keen M.D.[facility], [facility]ession #:[id number]. Rec. #:[id number]: #[id number] Cytologic Diagnosis1. 11L, fine needle aspirate:No malignant cells identified.Lymphocytes and pigmented macrophages present.2. 4L, fine needle aspirate:No malignant cells identified.Lymphocytes present.3. Station 7, fine needle aspirate:No malignant cells identified.Lymphocytes and pigmented macrophages present.4. 4R, fine needle aspirate:No malignant cells identified.Lymphocytes and pigmented macrophages present.5. Right upper lobe mass, fine needle aspirate:No malignant cells identified.Benign bronchial cells.Pigmented macrophages.6. Bronchial washing:No malignant cells identified.Benign bronchial cells.ao/06/29/2023Interpretation performed at [facility], [address] [place] [address], License number: [id number].Electronically Signed Out By Lamont Phelps MDAdditional Report(s): Flow Cytometry-Surg/BM/NG Date Reported: 4/1/2024Immunophenotypic analysis of the lymphoid cells demonstrates a hypocellular specimen with a predominant population of phenotypically unremarkable T-cells and rare polyclonal B-cells. No monoclonal lymphoid population is detected.Immunophenotyping antibodies tested: CD3, CD5, CD7, CD10, CD19, CD20, CD23, CD45, [place], and Lambda.Immunophenotyping Comment:Immunophenotyping has been used in this diagnostic evaluation. This test was developed and its performance characteristics determined by the [facility]. It has not been cleared or approved by the U.S. Food and Drug Administration. The FDA has determined that such clearance or approval is not necessary. This test is used for clinical purposes. It should not be regarded as investigational or for research. This laboratory is certified under the Clinical Laboratory Improvement Amendments of 1988 ( CLIA ) as qualified to perform high-complexity clinical testing.Electronically Signed OutDerek Kuhiren [facility] HOBARTlinical HistoryMass of lung [R91.8].Rapid On Site Interpretation1. 11L, fine needle aspirate: Pass 1: Inadequate. Pass 2-4: Negative. Pass 5: Inadequate. Mostly blood.2. 4L, fine needle aspirate: Pass 1: Inadequate. Pass 2: Atypical. Pass 3: Inadequate. Pass 4: Inadequate. Blood. Pass 5: Negative. Lymphocytes and blood.3. Station 7, fine needle aspirate: Pass 1: Hypocellular. Blood and scattered lymphocytes. Pass 2: Blood and lymphocytes. Pass 3: Blood and rare lymphocytes.4. 4R, fine needle aspirate: Pass 1: Hypocellular. Lymphocytes and blood. Pass 2: Hypocellular. Lymphocytes and blood.5. Right upper lobe mass, fine needle aspirate: Pass 1: Inadequate. Pass 2: Inadequate. Pass 3: Negative. Dr. Phelps Interpretation provided at [facility], [address] [place] [address].Gross Description1. Prepared in Endoscopy were 10 slides (5DQ). Also received was a needle rinse in CytoLyt for cellblock. Needle rinse obtained at 09:27 and placed in formalin at 15:00 with a total formalin fixation time of 10 hours.2. Prepared in Endoscopy were 10 slides (5DQ). Also received was a needle rinse in CytoLyt for cellblock. Needle rinse obtained at 09:55 and placed in formalin at 15:00 with a total formalin fixation time of 10 hours.3. Prepared in Endoscopy were 6 slides (3DQ). Also received was a needle rinse in CytoLyt for cellblock. Needle rinse obtained at 10:17 and placed in formalin at 15:00 with a total formalin fixation time of 10 hours. Additional specimen collected and sent (combined with 4R and right upper lobe mass) for flow cytometry.4. Prepared in Endoscopy were 4 slides (2DQ). Also received was a needle rinse in CytoLyt for cellblock. Needle rinse obtained at 10:39 and placed in formalin at 15:00 with a total formalin fixation time of 10 hours. Additional specimen collected and sent (combined with Station 7 and right upper lobe mass) for flow cytometry.5. Prepared in Endoscopy were 6 slides (3DQ). Also received was a needle rinse in CytoLyt for cellblock. Needle rinse obtained at 10:39 and placed in formalin at 15:00 with a total formalin fixation time of 10 hours. Additional specimen collected and sent (combined with station 7 and 4R) for flow cytometry.6. Received was 25mL of cloudy red fluid unfixed labeled as Jesse, bronchial washings . CytoLyt added in lab. Specimen placed in formalin at 15:00 and had a total fixation time of 10 hours.Source of Specimen1: 11L, fine needle aspirate Cell block for Non-rangeland management specialist (M), Level 2 H&E, Slides Made x 102: 4L, fine needle aspirate Cell block for Non-rangeland management specialist (M), Level 2 H&E, Slides Made x 103: Station 7, fine needle aspirate Cell block for Non-rangeland management specialist (M), Level 2 H&E, Slides Made x 64: 4R, fine needle aspirate Cell block for Non-rangeland management specialist (M), Level 2 H&E, Slides Made x 45: Right upper lobe mass, fine needle aspirate Level 1 H&E, Level 2 unstained, Level 3 unstained, Level 4 unstained, Level 5 unstained, Level 6 unstained, Level 7 unstained, Level 8 unstained, Level 9 unstained, Level 10 H&E, Slides Made x 66: Bronchial washing Cell block for Non-rangeland management specialist (M), Level 2 H&E, Non SPRAY DRIER ThinPrepFee Code(s):1; 13238, 04163, 791585; 38568, 32191, 653370; 30502, 92081, 477420; 25010, 69426, 023872; 32882, 33829, 168525; 24047, 01964, 89541 FUNGAL CULTUREon 06-26-2023 Fungus identified Cx Nom (Unsp spec) FUNGAL SMEAR NO FUNGAL ELEMENTS SEEN ON DIRECT SMEAR CULTURE RESULTS NO FUNGUS ISOLATED AFTER 4 WEEKS Normal [facility] Comment on above: Performed By: #### 5 80-1 ####[facility] ([id number])[address], [address] [place] [address] Flow cytometry specialist re view Nasir (Unsp spec) [Interp]on 06-26-2023 FLOW CYTOMETRY TISSUE/FLUID, NON CSF/NON BAL SEE SEPARATE REPORT, REVIEWED BY PATHOLOGIST Normal [facility] Comment on above: Performed By: #### 6 9052-9 ####[facility] ([id number])[address], [address] [place] [address]351 LOWER RESPIRATORY CULTUREon 06-26-2023 Bacteria identified Respiratory culture Nom (Sput) GRAM STAIN 10 to 24 WHITE BLOOD CELLS/LPF 0 to 1 SQUAMOUS EPITHELIAL CELLS/LPF 0 CILIATED EPITHELIAL CELLS/LPF NO ORGANISMS SEEN CULTURE RESULTS NO GROWTH 2 DAYS Normal [facility] Comment on above: Performed By: #### 6 24-7 ####[facility] ([id number])[address], [address] [place] [address]404 Lactate (P herminio) [Moles/Vol]o n 06-26-2023 LACTATE W/REFLEX 3.1 mmol/L High 0.4-2.0 [facility] Comment on above: Performed By: #### 3 2133-1 ####[facility] ([id number])[address], [address] [place] [address] 63739 LACTATE W/REFLEX 1.6 mmol/L Normal 0.4-2.0 [facility] Comment on above: Result Comment: Resu lt did not trigger repeat Lactate,re-order if needed. Performed By: #### 3 213-1 ####[facility] ([id number])[address] [place] [address], [address] [place] [address] 25239 LACTATE W/REFLEX 1.2 mmol/L Normal 0.4-2.0 [facility] Comment on above: Result Comment: Resu lt did not trigger repeat Lactate,re-order if needed. Performed By: #### C BCA, CMP, 66650-8 ####[facility] ([id number])[address] [place] [address]24 M. pneumoniae DNA DENIS+probe Ql (Unsp spec)on 06-26-2023 M PNEUMONIAE DNA PCR See Below [facility] Comment on above: Result Comment: NOTE TEST RESULT FLAG UNIT REF.RANGE Specimen Source See BelowSPECIMEN SOURCE (MYCPCR) BRONCHIAL WASHINGMYCOPLASMA PNEUM DNA Not DetectedNOT DETECTED - A negative result does not ruleout the presence of PCR inhibitors in the patient specimenor assay specific nucleic acid in concentrations below thelevel of detection by the assay.INTERPRETIVE INFORMATION: Mycoplasma pneumoniae by PCRThis test was developed and its performance characteristicsdetermined by [employer]. It has not been cleared orapproved by the [place] Food and Drug Administration. This testwas performed in a CLIA certified laboratory and isintended for clinical purposes.Performed By: [employer] [place] [address] [id number] Director: Kiko Coon MD, PhDCLIA Number: [id number] SPUTUM Performed By: #### 2 9257-3 ####[facility] ([id number])[address] [place] [address], [address] [place] [address] 36027 Surgical Pathologyon 024 Surgical Pathology Normal [facility] Comment on above: Result Comment: [facility] [employer] [facility] [address] [place] [address] Surgical Pathology ConsultationPatient Name:TORSTEN HAYWOOD:1955 (Age: 67)Gender:MTaken:06/26/2023eported:06/30/2023hysician(s):Ovidio Rasmussen MD ([phone])Copy To:HAMMAD SALINAS M.D. Rec. #:[id number]: #[id number] Pathologic DiagnosisRight bronchus intermedius biopsy: Blood clot and fragments of benign bronchial mucosa showing mild acute and chronic inflammatory infiltrates. No granulomas identified. No evidence of malignancy. See comment.Comment: AFB and GMS stains (with adequate controls) are negative for acid-fast bacilli and fungi, respectively. Recommend clinical and radiographic correlation, and correlation with any tissue culture studies performed. These results should not preclude additional tissue studies if results do not correlate with the clinical impression. Report Electronically Signed Outao/06/30/2023ndtomasz Phelps MDInterpretation performed at [facility], [address] [place] [address], License number: [id number].Clinical HistoryMass of lung.Gross DescriptionReceived in formalin, labeled YOBANY, right bronchus intermedius biopsy is a 0.8 x 0.4 x 0.1 cm aggregate of toro-cadena, feathery soft tissue fragments admixed with clotted blood. The specimen is filtered and entirely submitted in one cassette. (1, ns, [id number], m6) MWmxw/06/26/2023GRSpecimen(s) Received Right bronchus intermedius biopsyFee Codes(s):1; 54304, 28097(2) XR CHEST 1 VWon 06-26-2023 XR CHEST 1 VW [facility] aPTT Coag (PPP) [Time]on aPTT Coag (Bld) [Time] 37 s Normal 26-37 [facility] Comment on above: Performed By: #### 1 4979-9 ####[facility] ([id number])[address], [address], [place] [address] BLOOD CULTUREon 06-25-2023 Bacteria identified Aer cx Nom (Bld) CULTURE RESULTS NO GROWTH 5 DAYS Normal [facility] Bacteria identified Aer cx Nom (Bld) CULTURE RESULTS NO GROWTH 5 DAYS Normal [facility] CBC AND AUTO DIFFon 06-25-19 ABSOLUTE BASOPHIL 0.1 X10E9/L Normal 0.0-0.2 [facility] Comment on above: Performed By: #### C TALISHA [facility], 1985-07, 90974-5, 45548-1, 36811- 0 ####[facility] ([id number])[address], [address] [place] [address] 86333 ABSOLUTE NEUTROPHIL 15.2 X10E9/L High 1.5-6.6 [facility] Comment on above: Performed By: #### C TALISHA [facility], 1985-07, 54429-4, 65837-8, 62570- 0 ####[facility] ([id number])[address] [address] [place] [address] 59192 Basophils/100 WBC (Bld) 0.4 % Normal [facility] Comment on above: Performed By: #### C TALISHA [facility], 1985-07, 96773-6, 03778-8, 98275- 0 ####[facility] ([id number])[address], [address] [place] [address] 62541 Eosinophils (Bld) [#/Vol] 0.0 10*3/uL Normal 0.0-0.4 [facility] Comment on above: Performed By: #### C TALISHA [facility], 1985-07, 99153-8, 53884-7, 71775- 0 ####[facility] ([id number])[address] [address] [place] [address] 91739 Eosinophils/100 WBC (Bld) 0.2 % Normal [facility] Comment on above: Performed By: #### C TALISHA, CMP, 1985-07, 71513-9, 64839-1, 04462- 0 ####[facility] ([id number])[address], [address] [place] [address] 19336 Erythrocyte distribution width (RBC) [Ratio] 16.8 % High 11.5-15.0 [facility] Comment on above: Performed By: #### C BCA, CMP, 1987-07, 43617-8, 55944-4, 33934- 0 ####[facility] ([id number])[address] [address] [place] [address] 43662 Hematocrit (Bld) [Volume fraction] 34.8 % Low 39-49 [facility] Comment on above: Performed By: #### C TALISHA CMP, 1985-07, 47525-4, 33564-8, 46036- 0 ####[facility] ([id number])[address], [address] [place] [address] 17226 Hemoglobin (Bld) [Mass/Vol] 11.8 g/dL Low 13.0-17.0 [facility] Comment on above: Performed By: #### C TALISHA CMP, 1985-07, 33353-8, 07601-1, 51938- 0 ####[facility] ([id number])[address] [address] [place] [address] 89830 Lymphocytes (Bld) [#/Vol] 1.9 10*3/uL Normal 1.0-3.5 [facility] Comment on above: Performed By: #### C BCA, CMP, 1985-07, 31721-4, 52118-1, 52323- 0 ####[facility] ([id number])[address] [address] [place] [address] 17987 Lymphocytes/100 WBC (Bld) 9.0 % Normal [facility] Comment on above: Performed By: #### C BCA, CMP, 1985-07, 35179-2, 52045-6, 50675- 0 ####[facility] ([id number])[address], [address] [place] [address] 38624 MCH (RBC) [Entitic mass] 30.4 pg Normal 27-34 [facility] Comment on above: Performed By: #### C BCA, CMP, 1985-07, 92519-8, 07907-3, 89929- 0 ####[facility] ([id number])[address], [address] [place] [address] 27819 MCHC (RBC) [Mass/Vol] 33.8 g/dL Normal 32-36 [facility] Comment on above: Performed By: #### C BCA, CMP, 1985-07, 07655-7, 30552-5, 57697- 0 ####[facility] ([id number])[address] [address] MCV (RBC) [Entitic vol] 90 fL Normal 80-100 [facility] Comment on above: Performed By: #### C BCA, CMP, 1985-07, 02860-6, 67387-2, 93033- 0 ####[facility] ([id number])[address] [address] Monocytes (Bld) [#/Vol] 4.2 10*3/uL High 0-0.9 [facility] Comment on above: Performed By: #### C BCA, CMP, 1985-07, 36757-2, 96578-5, 08836- 0 ####[facility] ([id number])[address] [address] Monocytes/100 WBC (Bld) 19.6 % Normal [facility] Comment on above: Performed By: #### C BCA, CMP, 1985-07, 53014-2, 80373-0, 20649- 0 ####[facility] ([id number])[address], [address] [place] [address] 95447 Neutrophils/100 WBC (Bld) 70.8 % Normal [facility] Comment on above: Performed By: #### C TALISHA, CMP, 1985-07, 97886-1, 19586-3, 50905- 0 ####[facility] ([id number])[address], [address], [place] [address] Platelet mean volume (Bld) [Entitic vol] 8.1 fL Normal 7-12 [facility] Comment on above: Performed By: #### C TALISHA, CMP, 1985-07, 39277-5, 70267-6, 52404- 0 ####[facility] ([id number])[address], [address] [place] [address] 81431 Platelets (Bld) [#/Vol] 468 10*3/uL High 150-450 [facility] Comment on above: Performed By: #### Bob WOODALL, CMP, 1985-07, 90836-9, 24832-0, 10467- 0 ####[facility] ([id number])[address] [address] [place] [address] 87446 POLYCHROMASIA 1+ Abnormal NONE [facility] Comment on above: Performed By: #### Bob WOODALL, CMP, 1985-07, 53911-9, 68946-2, 06596- 0 ####[facility] ([id number])[address], [address] [place] [address] 39919 RBC COUNT 3.87 X10E12/L Low 4.10-5.70 [facility] Comment on above: Performed By: #### C TALISHA, CMP, 1985-07, 04147-6, 25587-5, 02580- 0 ####[facility] ([id number])[address], [address] [place] [address] 56136 WBC (Bld) [#/Vol] 21.5 10*3/uL High 4.0-11.0 [facility] Comment on above: Performed By: #### C BCA, CMP, 1987-07, 78386-6, 19062-4, 50931- 0 ####[facility] ([id number])[address], [address], [place] [address] COMPREHENSIVE METABOLIC PANE Jalen 06-25-2023 Albumin [Mass/Vol] 2.2 g/dL Low 3.2-5.3 [facility] Comment on above: Performed By: #### C BCA, CMP, 1987-07, 55384-7, 68733-6, 79427- 0 ####[facility] ([id number])[address], [address], [place] [address] ALP [Catalytic activity/Vol] 107 U/L Normal 39-130 [facility] Comment on above: Performed By: #### C BCA, CMP, 1985-07, 72431-9, 56369-2, 09271- 0 ####[facility] ([id number])[address], [address] [address] ALT [Catalytic activity/Vol] 24 U/L Normal 0-40 [facility] Comment on above: Performed By: #### C BCA, CMP, 1985-07, 44919-2, 17247-9, 57727- 0 ####[facility] ([id number])[address], [address], [place] [address] Anion gap [Moles/Vol] 8 mmol/L Normal 5-15 [facility] Comment on above: Performed By: #### C BCA, CMP, 1987-07, 62511-3, 80299-3, 20530- 0 ####[facility] ([id number])[address], [address], [place] [address] AST [Catalytic activity/Vol] 21 U/L Normal 0-41 [facility] Comment on above: Performed By: #### C BCA, CMP, 1987-07, 43539-2, 40151-5, 86820- 0 ####[facility] ([id number])[address], [address] [place] [address] Bilirubin [Mass/Vol] 0.9 mg/dL Normal 0.3-1.2 [facility] Comment on above: Performed By: #### C BCA, CMP, 1985-07, 83915-7, 71495-1, 64483- 0 ####[facility] ([id number])[address], [address], [place] [address] Calcium [Mass/Vol] 7.9 mg/dL Low 8.5-10.5 [facility] Comment on above: Performed By: #### C BCA, CMP, 1987-07, 28180-1, 79941-1, 74699- 0 ####[facility] ([id number])[address], [address], [place] [address] Chloride [Moles/Vol] 100 mmol/L Normal 98-109 [facility] Comment on above: Performed By: #### C BCA, CMP, 1987-07, , 15360-4, 32415- 0 ####[facility] ([id number])[address], [address], [place] [address] CO2 [Moles/Vol] 27 mmol/L Normal 22-32 [facility] Comment on above: Performed By: #### C BCA, CMP, 1987-07, 15619-3, 68215-3, 66055- 0 ####[facility] ([id number])[address], [address] [place] [address] Creatinine [Mass/Vol] 0.55 mg/dL Low 0.60-1.30 [facility] Comment on above: Result Comment: METH OD TRACEABLE TO IDMS STANDARD Performed By: #### C BCA, CMP, 1987-07, 13978-7, 12054-3, 30555-7 ####[facility] ([id number])[address], [address] [place] [address] eGFR (CKD-EPI) NON-RACE DEPENDENT >90 Normal >59 [facility] Comment on above: Result Comment: Repo rted eGFR is based on theCKD-EPI 2020 equation that doesnot use a race coefficient. Performed By: #### C BCA, CMP, 1987-07, 32726-3, 63211-8, 04365-6 ####[facility] ([id number])[address], [address] [place] [address] Glucose [Mass/Vol] 98 mg/dL Normal 65-99 [facility] Comment on above: Performed By: #### C BCA, CMP, 1987-07, 87996-6, 89923-8, 66808- 0 ####[facility] ([id number])[address] [address] [place] [address] Potassium [Moles/Vol] 3.9 mmol/L Normal 3.5-5.0 [facility] Comment on above: Performed By: #### C BCA, CMP, 1987-07, 40576-3, 29834-5, 84304- 0 ####[facility] ([id number])[address] [address] [place] [address] Protein [Mass/Vol] 5.0 g/dL Low 6.0-8.0 [facility] Comment on above: Performed By: #### C BCA, CMP, 1987-07, 47402-1, 48458-4, 16068- 0 ####[facility] ([id number])[address] [address] [place] [address] Sodium [Moles/Vol] 135 mmol/L Normal 134-146 [facility] Comment on above: Performed By: #### C BCA, CMP, 1987-07, 62956-8, 96257-2, 24413- 0 ####[facility] ([id number])[address], [address], [place] [address] Urea nitrogen [Mass/Vol] 18 mg/dL Normal - [facility] Comment on above: Performed By: #### C BCA, CMP, 1987-07, 48965-1, 01691-4, 30222- 0 ####[facility] ([id number])[address], [address], [place] [address] CRP [Mass/Vol]on 06-25-2023 C REACTIVE PROTEIN 18.0 mg/dL High 0.000-0.744 [facility] Comment on above: Performed By: #### C BCA, CMP, 1987-07, 63101-9, 82614-2, 77468- 0 ####[facility] ([id number])[address] [address], [place] [address] HGB A1C (GLYCO-HGB)on 2023 Glucose [Mass/Vol] 143 mg/dL Normal [facility] Comment on above: Performed By: #### C BCA, CMP, 1987-07, 10187-6, 08124-6, 17346- 0 ####[facility] ([id number])[address] [address] [place] [address] 21523 HbA1c (Bld) [Mass fraction] 6.6 % High 4.4-5.6 [facility] Comment on above: Result Comment: NOTE ADA Guidelines Result HgbA1c Normal : less than 5.7 % Prediabetes : 5.7 % to 6.4 % Diabetes : > 6.4 %Use with caution in patients with abnormal hemoglobin variants asthe half-life of red blood cells and in vivo glycation rates areaffected. Performed By: #### C BCA, CMP, 1987-07, 80518-3, 06323-4, 85842-3 ####[facility] ([id number])[address] [address] [place] [address] 45957 LEGIONELLA URINE AGon 2023 L. pneumophila Ag IA Ql (U) LEGIONELLA URINE AG Negative (qualifier value) NEGATIVE FOR L.PNEUMOPHILA SEROGROUP 1 ANTIGEN Normal [facility] Comment on above: Performed By: #### 6 447-7, 59004-3 ####[facility] ([id number])[address] [address] [place] [address]5421 Lactate (P herminio) [Moles/Vol]o n 06-25-2023 LACTATE W/REFLEX 2.0 mmol/L Normal 0.4-2.0 [facility] Comment on above: Result Comment: Resu lt did not trigger repeat Lactate,re-order if needed. Performed By: #### 3 2132-03 ####[facility] ([id number])[address] [address] [place] [address] 70953 Lactate [Moles/Vol] 1.5 mmol/L Normal 0.4-2.0 [facility] Comment on above: Performed By: #### 3 2132-03 ####[facility] ([id number])[address] [address] [place] [address] 55161 LACTATE W/REFLEX 2.6 mmol/L High 0.4-2.0 [facility] Comment on above: Performed By: #### 3 1 ####[facility] ([id number])[address] [address] LACTATE W/REFLEX 1.3 mmol/L Normal 0.4-2.0 [facility] Comment on above: Result Comment: Resu lt did not trigger repeat Lactate,re-order if needed. Performed By: #### C BCA, CMP, 1988-5, 86795-5, 11716-2, 95162-7 ####[facility] ([id number])[address] [address] [place] [address] 61584 MRSA PCR NASALon 06-25-2023 MRSA DNA DENIS+probe Ql (Unsp spec) Negative Normal NEG [facility] Comment on above: Performed By: #### 3 5492-8 ####[facility] ([id number])[address], [address] [place] [address]397 Natriuretic peptide B [Mass/ Vol]on 06-25-2023 Natriuretic peptide B (Bld) [Mass/Vol] 36 pg/mL Normal <100.0 [facility] Comment on above: Performed By: #### C TALISHA [facility], 1987-07, 39469-9, 61178-2, 88867- 0 ####[facility] ([id number])[address], [address] [place] [address] Procalcitonin IA [Mass/Vol]o n 06-25-2023 PROCALCITONIN 0.19 ng/mL High <0.05 [facility] Comment on above: Result Comment: NOTE <0.50 ng/mL - Low risk of severe sepsis and/or septic shock.<2.00 ng/mL - Recommend retesting within 6-24 hours.>2.00 ng/mL - High risk of sepsis and/or septic shock. Performed By: #### [facility], 1985-07, 49936-0, 27892-8, 86544-9 ####[facility] ([id number])[address], [address] [place] [id number] S PNEUMONIAE AG Uon 06-25-19 S. pneumoniae Ag Ql (U) Negative Normal NEG [facility] Comment on above: Performed By: #### 6 447-7, 36892-9 ####[facility] ([id number])[id number] [address], [address] [place] [id number] URINALYSISon 06-25-2023 Bilirubin Ql (U) Negative Normal NEG [facility] BLOOD/HGB Negative Normal NEG [facility] Color (U) YELLOW Normal YELLOW [facility] Glucose Ql (U) Negative Normal NEG [facility] Ketones Ql (U) Negative Normal NEG [facility] Leukocyte esterase Test strip Ql (U) Negative Normal NEG [facility] MUCOUS PRESENT Abnormal NONE [facility] Nitrite Ql (U) Negative Normal NEG [facility] pH (U) 6.0 [pH] Normal 5.0-8.5 [facility] Protein Ql (U) 30 mg/dL Abnormal NEG [facility] R.B.CELLS 3 /hpf Normal 0-5 [facility] Specific gravity (U) [Rel density] 1.046 High 1.003-1.035 [facility] SQUAMOUS EPITHELIUM <1 Normal 0-5 [facility] TURBIDITY CLEAR Normal CLEAR [facility] Urobilinogen Qn (U) 4 {Alem'U}/dL High <1.1 [facility] W.B.CELLS 2 /hpf Normal 0-5 [facility] URINE CULTUREon 06-25-2023 Bacteria identified Cx Nom (U) CULTURE RESULTS NO GROWTH AT <1000 CFU/mL Normal [facility] Comment on above: Performed By: #### 6 30-4 ####[facility] ([id number])[address] [place] [address], [address] [place] [address] aPTT Coag (PPP) [Time]on aPTT Coag (Bld) [Time] 37 s Normal 26-37 [facility] Comment on above: Performed By: #### 1 4979-9 ####[facility] ([id number])[address] [place] [address], [address] [place] [address] Echocardiographyon Echocardiography [id number] Normal [facility] Consultation Noteon 06-11-19 24 Consultation Note [id number] Normal [facility] 37on 06-10-2023 37 *Continue heart heal thy diet and low sodium diet. *Monitor daily weights, fluid restriction 1.5-2Liters/day, lab work to check kidney/renal function and electrolytes *Call office for weight gain of 2 pounds in 1 day or 5 pounds in 1 week, increased leg swelling, shortness of breath or shortness of breath at night and having to sleep sitting up taller/more pillows than normal or in recliner. Decrease bumex to 1 mg daily Decrease fluid intake to 1.5-2L per day Cut Entresto in half- take twice daily Resume low dose coreg 3.125 mg bid. Normal [facility] Office Visiton 06-10-2023 Follow-up visit [id number] Luke Haywood 1955 M Date Provider Department Center 06/10/2023 [facility] Family History Problem Relation Age of Onset Coronary artery disease Father Coronary artery disease Brother Family Status - Relation Status Age at Father Brother Level of Service:75105 [place] OFFICE/OUTPATIENT ESTABLISHED MOD MDM 30 MIN [facility] Ambulatory Visit Summaryon 0 06-04-2023 Ambulatory Visit Summary TORSTEN HAYWOOD :1955 Visit Date:06/04/2023 Ambulatory Visit Instructions Your Diagnosis Congestive heart failure Factor V Leiden HTN (hypertension) BMI 31.0-31.9,adult Class 1 obesity due to excess calories in adult Nonsmoker Hx of CABG Tubular adenoma of colon Screening PSA (prostate specific antigen) Your Care Team Attending Physician - Chester Hobbs MD Primary Care Physician - Chester Hobbs MD This Is Your Medications List bumetanide (bumetanide 1 mg Tab) Contact prescribing physician if questions or concerns apixaban (Eliquis 5 mg oral tablet) aspirin (aspirin 81 mg Oral EC Tab) atorvastatin (atorvastatin 20 mg Tab) carvedilol (Coreg 3.125 mg Tab) potassium chloride (potassium chloride 20 mEq ER Tab) sacubitril-valsartan (Entresto 24 mg-26 mg oral tablet) sildenafil (sildenafil 20 mg oral tablet) Procedures Performed Colonoscopy (11/16/2019), CABG x 5 - Coronary artery bypass grafts x 5, Cholecystectomy, Splenectomy. Discharge Vitals Temperature (Temporal Artery) 37.0 ?C Heart Rate (Peripheral) 102 Respiratory Rate 20 Blood Pressure 102/66 Height 185.2 cm Height 73 in Weight 109 kg Weight 239.8 lb BMI 31.78 What to do next Scheduled Follow-Up Appointments 2023 7:00 AM EDT With: Yfn ESCOBEDO, Chester Avila Where: [facility] Normal [address] [place] [address]- \.br\ Medications\. br\ What How Much When Instructions\ .br\ Changed bumetanide (bumetanide 1 mg Tab) 1 Tablets By Mouth 2 times a day\.br\ Unchanged apixaban (Eliquis 5 mg oral tablet) 1 Tablets By Mouth 2 times a day Contact prescribing physician if questions or concerns \.br\ Unchanged aspirin (aspirin 81 mg Oral EC Tab) 1 Tablets By Mouth Every day Contact prescribing physician if questions or concerns \.br\ Unchanged atorvastatin (atorvastatin 20 mg Tab) 1 Tablets By Mouth Every day Contact prescribing physician if questions or concerns \.br\ Unchanged carvedilol (Coreg 3.125 mg Tab) 2 Tablets By Mouth Every day Contact prescribing physician if questions or concerns \.br\ Unchanged potassium chloride (potassium chloride 20 mEq ER Tab) 1 Tablets By Mouth Every day Contact prescribing physician if questions or concerns \.br\ Unchanged sacubitril-va lsartan (Entresto 24 mg-26 mg oral tablet) 1 Tablets By Mouth 2 times a day Contact prescribing physician if questions or concerns \.br\ Unchanged sildenafil (sildenafil 20 mg oral tablet) 1 Tablets By Mouth Every day as needed for erectile dysfunction Contact prescribing physician if questions or concerns \.br\ Allergies\.br \ No Known Allergies\.br \ No Known Medication Allergies\.br \ Problems\.br\ Ongoing - Any problem that you are currently receiving treatment for.\.br\ Adult BMI 38.0-38.9 kg/sq m\.br\ CAD (coronary artery disease)\.br\ Chronic anticoagulati on\.br\ Congestive heart failure\.br\ Factor V Leiden\.br\ History of asplenia\.br\ HTN (hypertension )\.br\ Hx of CABG\.br\ Screening PSA (prostate specific antigen)\.br\ Tubular adenoma of colon\.br\ Patient Survey\.br\ You may receive a survey via text or e-mail asking about your office visit. Please share your experience with us by completing your survey. We appreciate your feedback and thank you for choosing us for your care.\.br\ Education Materials\.br \ BMI for Adults\.br\ What is BMI?\.br\ Body mass index (BMI) is a number that is calculated from a person's weight and height. BMI can help estimate how much of a person's weight is composed of fat. BMI does not measure body fat directly. Rather, it is an alternative to procedures that directly measure body fat, which can be difficult and expensive.\.b r\ BMI can help identify people who may be at higher risk for certain medical problems.\.br \ What are BMI measurements used for?\.br\ BMI is used as a screening tool to identify possible weight problems. It helps determine whether a person is obese, overweight, a healthy weight, or underweight.\ .br\ BMI is useful for:\.br\ ? \.br\ Identifying a weight problem that may be related to a medical condition or may increase the risk for medical problems.\.br \ ? \.br\ Promoting changes, such as changes in diet and exercise, to help reach a healthy weight. BMI screening can be repeated to see if these changes are working.\.br\ How is BMI calculated?\. br\ BMI involves measuring your weight in relation to your height. Both height and weight are measured, and the BMI is calculated from those numbers. This can be done either in [place] or metric measurements. Note that charts and online BMI calculators are available to help you find your BMI quickly and easily without having to do these calculations yourself.\.br \ To calculate your BMI in [place] measurements: \.br\ \.br\ 1. \.br\ Measure your weight in pounds (lb).\.br\ 2. \.br\ Multiply the number of pounds by 703.\.br\ ? \.br\ For example, for a person who weighs 180 lb, multiply that number by 703, which equals 126,540.\.br\ 3. \.br\ Measure your height in inches. Then multiply that number by itself to get a measurement called inches squared. \.br \ ? \.br\ For example, for a person who is 70 inches tall, the inches squared measurement is 70 inches x 70 inches, which equals 4,900 inches squared.\.br\ 4. \.br\ Divide the total from step 2 (number of lb x 703) by the total from step 3 (inches squared): 126,540 ? 4,900 = 25.8. This is your BMI.\.br\ To calculate your BMI in metric measurements: \.br\ 1. \.br\ Measure your weight in kilograms (kg).\.br\ 2. \.br\ Measure your height in meters (m). Then multiply that number by itself to get a measurement called meters squared. \.br \ ? \.br\ For example, for a person who is 1.75 m tall, the meters squared measurement is 1.75 m x 1.75 m, which is equal to 3.1 meters squared.\.br\ 3. \.br\ Divide the number of kilograms (your weight) by the meters squared number. In this example: 70 ? 3.1 = 22.6. This is your BMI.\.br\ What do the results mean?\.br\ BMI charts are used to identify whether you are underweight, normal weight, overweight, or obese. The following guidelines will be used:\.br\ ? \.br\ Underweight: BMI less than 18.5.\.br\ ? \.br\ Normal weight: BMI between 18.5 and 24.9.\.br\ ? \.br\ Overweight: BMI between 25 and 29.9.\.br\ ? \.br\ Obese: BMI of 30 or above.\.br\ Keep these notes in mind:\.br\ ? \.br\ Weight includes both fat and muscle, so someone with a muscular build, such as an athlete, may have a BMI that is higher than 24.9. In cases like these, BMI is not an accurate measure of body fat.\.br\ ? \.br\ To determine if excess body fat is the cause of a BMI of 25 or higher, further assessments may need to be done by a health care provider.\.br \ ? \.br\ BMI is usually interpreted in the same way for men and women.\.br\ Where to find more information\. br\ For more information about BMI, including tools to quickly calculate your BMI, go to these websites:\.br \ ? \.br\ Centers for Disease Control and Prevention: www.cdc.gov\. br\ ? \.br\ [place] [employer]: www.heart.org \.br\ ? \.br\ National Heart, Lung, and Blood [place]: www.nhlbi.nih .gov\.br\ Summary\.br\ ? \.br\ Body mass index (BMI) is a number that is calculated from a person's weight and height.\.br\ ? \.br\ BMI may help estimate how much of a person's weight is composed of fat. BMI can help identify those who may be at higher risk for certain medical problems.\.br \ ? \.br\ BMI can be measured using [place] measurements or metric measurements. \.br\ ? \.br\ BMI charts are used to identify whether you are underweight, normal weight, overweight, or obese.\.br\ This information is not intended to replace advice given to you by your health care provider. Make sure you discuss any questions you have with your health care provider.\.br \ Document Revised: 12/07/2019 Document Reviewed: 10/14/2019 [employer] Patient Education ? 2022 [employer].br\ \.br\ [facility] CBC w/ Auto Diffon 4 Basophils/100 WBC (Bld) 0.4 % Normal 0.0-2.0 [facility] Comment on above: Performed By: #### 2 053600, 0393736, 41543955, 0521589, 73716624 ####[facility] [address] [place] [address] Basophils/Leukocyte s Auto (Bld) [Pure # fraction] 0.1 E9/L Normal 0.0-0.2 [facility] Comment on above: Performed By: #### 2 303232, 4120001, 07105093, 5854741, 38498499 ####[facility] [address] [place] [address] Eosinophils (Bld) [#/Vol] 0.0 E9/L Normal 0.0-0.5 [facility] Comment on above: Performed By: #### 2 481495, 8286233, 43699003, 9009888, 63192160 ####[facility] [address] [place] [address] Eosinophils/100 WBC (Bld) 0.1 % Normal 0.0-8.0 [facility] Comment on above: Performed By: #### 2 089278, 2528364, 03651104, 1671557, 45444875 ####[address] [place] [address] Erythrocyte distribution width (RBC) [Ratio] 16.4 % High 10.9-14.2 [facility] Comment on above: Performed By: #### 2 850234, 4577484, 76707313, 8330920, 87698109 ####[address] [address] Hematocrit (Bld) [Volume fraction] 42.5 % Normal 37.7-49.0 [facility] Comment on above: Performed By: #### 2 153255, 5096759, 79043267, 7749989, 10581606 ####[address] [address] Hemoglobin (Bld) [Mass/Vol] 13.7 g/dL Normal 13.5-17.5 [facility] Comment on above: Performed By: #### 2 439109, 7174803, 61184494, 6556400, 67716514 ####[address] [place] [address] Lymphocytes (Bld) [#/Vol] 1.2 E9/L Normal 1.0-4.0 [facility] Comment on above: Performed By: #### 2 667984, 9221680, 82206552, 0227084, 22351559 ####[address] [address] Lymphocytes/100 WBC (Bld) 7.3 % Low 14.0-50.0 [facility] Comment on above: Performed By: #### 2 837747, 7235962, 35980812, 0143387, 83002414 ####[facility] [address] [place] [address] MCH (RBC) [Entitic mass] 30.0 pg Normal 27.0-34.0 [facility] Comment on above: Performed By: #### 2 093681, 0063000, 42546230, 8421402, 29784039 ####[facility] [address] [place] [address] MCHC (RBC) [Mass/Vol] 32.4 g/dL Normal 31.4-36.0 [facility] Comment on above: Performed By: #### 2 034424, 6428474, 95978339, 0112941, 71170482 ####[place] [address] MCV (RBC) [Entitic vol] 92.6 fL Normal 80.0-100.0 [facility] Comment on above: Performed By: #### 2 715655, 8752285, 87156463, 6129754, 90471484 ####[place] Monocytes (Bld) [#/Vol] 4.0 E9/L High 0.2-1.0 [facility] Comment on above: Result Comment: Revi ew slide for monocytosis Performed By: #### 2 009758, 8121696, 86405983, 8176113, 20186748 ####[address] [place] [address] Neutrophils (Bld) [#/Vol] 10.8 E9/L High 2.0-7.5 [facility] Comment on above: Performed By: #### 2 146327, 5173466, 72281292, 9229504, 77093287 ####[address] [address] Neutrophils/100 WBC (Bld) 67.1 % Normal 36.0-75.0 [facility] Comment on above: Performed By: #### 2 637124, 0656210, 02186951, 7693221, 13620372 ####[facility] [address] [place] [address] Platelet 557.0 E9/L High 150.0-500.0 [facility] Comment on above: Performed By: #### 2 853665, 0076909, 38813326, 6800594, 56469280 ####[address] [place] [address] Platelet mean volume (Bld) [Entitic vol] 8.2 fL Normal 6.4-10.8 [facility] Comment on above: Performed By: #### 2 931625, 0439231, 87656691, 1243718, 68929741 ####[address] [address] RBC (Bld) [#/Vol] 4.6 E12/L Normal 4.3-5.9 [facility] Comment on above: Performed By: #### 2 219555, 3180890, 41215241, 0245862, 65240121 ####[address] [address] WBC corrected for nucl RBC Auto (Bld) [#/Vol] 16.1 E9/L High 4.0-11.0 [facility] Comment on above: Result Comment: Veri fied with slide review Performed By: #### 2 405672, 4661954, 38845720, 7271856, 79019656 ####[address] [address] CHEMISTRYOrdered By: SYSTEM SYSTEM on 06-04-2023 Albumin [Mass/Vol] 3.0 g/dL Low 3.3 - 5.0 gm/dL [facility] Albumin/Globulin [Mass ratio] 0.8 {ratio} Low 1.1 - 2.2 [facility] ALP [Catalytic activity/Vol] 118 [iU]/d High 21 - 98 Int._Unit/L [facility] ALT No additional P-5'-P [Catalytic activity/Vol] 36 [iU]/d Normal 6 - 46 Int._Unit/L [facility] Anion gap [Moles/Vol] 15 mmol/L Normal 6 - 16 mEq/L [facility] AST [Catalytic activity/Vol] 29 [iU]/d Normal 5 - 43 Int._Unit/L [facility] Bilirubin [Mass/Vol] 1.2 mg/dL High 0.0 - 1.1 mg/dL [facility] Calcium [Mass/Vol] 8.7 mg/dL Low 8.9 - 11. 1 mg/dL [facility] Chloride [Moles/Vol] 92 mmol/L Low 101 - 111 mmol/L [facility] Cholesterol [Mass/Vol] 92 mg/dL Low 120 - 200 mg/dL [facility] Cholesterol in HDL [Mass/Vol] 27 mg/dL Invalid Interpretation Code [facility] Comment on above: Result Comment: '>= 60 LOW RISK' '<= 40 HIGH RISK' Cholesterol in LDL [Mass/Vol] 54 mg/dL Normal <=129mg/dL [facility] Cholesterol in VLDL [Mass/Vol] 13 mg/dL Normal 7 - 40 mg/dL [facility] CO2 [Moles/Vol] 30 mmol/L Normal 21 - 31 mmol/L [facility] Creatinine [Mass/Vol] 0.9 mg/dL Normal 0.5 - 1.3 mg/dL [facility] eGFR 95 mL/min/1.73 m2 Normal >=59mL/min /1. 73 m2 [facility] Globulin (S) [Mass/Vol] 3.7 g/dL Normal 1.4 - 4.0 gm/dL [facility] Glucose [Mass/Vol] 104 mg/dL Normal 55 - 199 mg/dL [facility] Potassium [Moles/Vol] 4.2 mmol/L Normal 3.5 - 5.3 mmol/L [facility] Prostate specific Ag [Mass/Vol] 0.9 ng/mL Normal 0.1 - 3.5 ng/mL [facility] Comment on above: Interpretive Data: T he concentration of PSA determined by different manufacturers can vary due to differences in assay methods and reagent specificity. Values obtained from different assay methods cannot be used interchangeably. The methodology used for this result was chemiluminescence using [employer]ianne [employer]'s Access [employer] PSA reagent. Protein [Mass/Vol] 6.7 g/dL Normal 6.0 - 7.8 gm/dL [facility] Sodium [Moles/Vol] 133 mmol/L Low 135 - 145 mmol/L [facility] Triglyceride [Mass/Vol] 66 mg/dL Normal <=149mg/dL [facility] Urea nitrogen [Mass/Vol] 15 mg/dL Normal 5 - 21 mg/dL [facility] Urea nitrogen/Creatinine [Mass ratio] 17 mg/mg Normal 10 - 20 [facility] CMPon 06-04-2023 Albumin [Mass/Vol] 3.0 g/dL Low 3.3-5.0 [facility] Comment on above: Performed By: #### 2 422437, 8581876, 98650891, 9528520, 35072908 ####[facility] [address] [place] [address] Albumin/Globulin (S) [Mass conc ratio] 0.8 Low 1.1-2.2 [facility] Comment on above: Performed By: #### 2 820514, 3551025, 13164279, 3118052, 05982720 ####[facility] [address] [place] [address] ALP [Catalytic activity/Vol] 118 Int._Unit/L High 21-98 [facility] Comment on above: Performed By: #### 2 658088, 5038032, 28146968, 3157337, 49902467 ####[facility] [address] [place] [address] ALT No additional P-5'-P [Catalytic activity/Vol] 36 Int._Unit/L Normal 6-46 [facility] Comment on above: Performed By: #### 2 730069, 4015612, 41866987, 4183563, 67293358 ####[facility] [address] [place] [address] Anion gap [Moles/Vol] 15 mmol/L Normal 6-16 [facility] Comment on above: Performed By: #### 2 508602, 2406929, 05825342, 9595227, 53379593 ####[facility] [address] [place] [address] AST [Catalytic activity/Vol] 29 Int._Unit/L Normal 5-43 [facility] Comment on above: Performed By: #### 2 865995, 9263969, 86639680, 0108662, 80332693 ####[facility] [address] [place] [address] Bilirubin [Mass/Vol] 1.2 mg/dL High 0.0-1.1 [facility] Comment on above: Performed By: #### 2 857593, 1569809, 07825028, 0923978, 04754053 ####[facility] [address] [place] [address] Calcium [Mass/Vol] 8.7 mg/dL Low 8.9-11.1 [facility] Comment on above: Performed By: #### 2 070069, 2189335, 26744838, 2537310, 47069394 ####[facility] [address] [place] [address] Chloride [Moles/Vol] 92 mmol/L Low 101-111 [facility] Comment on above: Performed By: #### 2 517206, 6800857, 55467729, 2138825, 82235716 ####[facility] [address] [place] [address] CO2 [Moles/Vol] 30 mmol/L Normal 21-31 [facility] Comment on above: Performed By: #### 2 334910, 4813189, 53342714, 6366302, 49819264 ####[facility] [address] [place] [address] Creatinine [Mass/Vol] 0.9 mg/dL Normal 0.5-1.3 [facility] Comment on above: Performed By: #### 2 480686, 7509879, 63986795, 5605464, 35266276 ####[facility] [address] [place] [address] Globulin (S) [Mass/Vol] 3.7 g/dL Normal 1.4-4.0 [facility] Comment on above: Performed By: #### 2 283325, 2611325, 82381297, 4744985, 98530353 ####[facility] [address] [place] [address] Glucose [Mass/Vol] 104 mg/dL Normal 55-199 [facility] Comment on above: Performed By: #### 2 710549, 7290601, 83735153, 6909429, 94610560 ####[address] [place] [address] Potassium [Moles/Vol] 4.2 mmol/L Normal 3.5-5.3 [facility] Comment on above: Performed By: #### 2 979671, 1354656, 86528630, 5699995, 10684146 ####[facility] [address] [place] [address] Protein [Mass/Vol] 6.7 g/dL Normal 6.0-7.8 [facility] Comment on above: Performed By: #### 2 268395, 6852161, 19969055, 3027016, 83251484 ####[facility] [address] [place] [address] Sodium [Moles/Vol] 133 mmol/L Low 135-145 [facility] Comment on above: Performed By: #### 2 609782, 3816055, 21710427, 4305959, 02499838 ####[facility] [address] [place] [address] Urea nitrogen [Mass/Vol] 15 mg/dL Normal 5-21 [facility] Comment on above: Performed By: #### 2 424489, 8359592, 32824758, 1459044, 43211293 ####[facility] [address] [place] [address] Urea nitrogen/Creatinine [Mass ratio] 17 No Units Normal 10-20 [facility] Comment on above: Performed By: #### 2 292188, 6025391, 26910298, 0819339, 47307725 ####[facility] [address] [place] [address] Family Medicine Office/Clini c Noteon 06-04-2023 Family Medicine Office/Clinic Note HPI Staff Torsten is a 67 year old male presenting to establish care Establish Care: History: CABG X 5, Factor V Any previous diagnosis: History of seeing any specialist: director technical Dr Tena [facility] When was your last doctors visit: Oct or dec 20 w/ director technical Last provider: Dr Hobbs in [place] hasn't seen anyone since Any recent labs: July 2022 Health Maintenance UTD: Colonoscopy: UTD PSA: ?? flu: UTD 01/02/23 Acute: refill sildenafil Current issues/complaints: high BP, loss of weight when sick and dizziness he didn't take his carvedilol dose last night and this morning due to low reading History of Present Illness - Pt here to establish with me. - Feeling dizzy. - This has happened before when his Bps get low. - Pt has not be able to check them as he broke his BP cuff. - Would like adjustments on his meds. - Sees Cardiology. Review of Systems PHQ Score Initial Depression Screen Score: 1 SCORE Physical Exam Vitals & Measurements T: 37.0 ?C(Temporal Artery) HR: 102(Peripheral) RR: 20 BP: 102/66 SpO2: 95% HT: 73 in HT: 185.2 cm WT: 109 kg WT: 239.8 lb BMI: 31.78 General: alert, no acute distress ENMT: oral mucosa moist, Cardiovascular: Slightly tachy, normal peripheral perfusion Respiratory: Lungs CTA, respirations non labored Extremities: no deformity, no trauma Neurological: oriented x 4, LOC appropriate for age, CN II-XII intact, motor strength equal & normal bilaterally, speech normal Abdomen: Soft, Nontender, Non-distended, + BS Assessment/Plan 1. Congestive heart failure (I50.9: Heart failure, unspecified) - Stable. - Will get records from cardiology. - Follow up in 1 month Ordered: CBC w/ Auto Diff Comprehensive Metabolic Panel Lipid Panel PSA Screen, Total 2. Factor V Leiden (D68.51: Activated protein C resistance) - No bleeding noted. - On eliquis Ordered: CBC w/ Auto Diff Comprehensive Metabolic Panel Lipid Panel PSA Screen, Total 3. HTN (hypertension) (I10: Essential (primary) hypertension) - Stable and on the lower side. - Concerned for the dizziness Ordered: CBC w/ Auto Diff Comprehensive Metabolic Panel Lipid Panel PSA Screen, Total 4. BMI 31.0-31.9,adult (Z68.31: Body mass index [BMI] 31.0-31.9, adult) - BMI education given Ordered: Body Mass Index (BMI) documented 3008F CBC w/ Auto Diff Comprehensive Metabolic Panel Current tobacco non-user 1036F Depression Screening Negative 3352F Influenza immunization administered or previously received 4274F Lipid Panel Most recent diastolic blood pressure <80 mm Hg 3078F Patient screen for fall risk: no falls in last year or 1 fall with no injury in last year 1101F PSA Screen, Total Systolic BP <130 mm Hg (Most Recent) 3074F 5. Class 1 obesity due to excess calories in adult (E66.09: Other obesity due to excess calories) - Diet and exercise advised Ordered: Body Mass Index (BMI) documented 3008F CBC w/ Auto Diff Comprehensive Metabolic Panel Current tobacco non-user 1036F Depression Screening Negative 3352F Influenza immunization administered or previously received 4274F Lipid Panel Most recent diastolic blood pressure <80 mm Hg 3078F Patient screen for fall risk: no falls in last year or 1 fall with no injury in last year 1101F PSA Screen, Total Systolic BP <130 mm Hg (Most Recent) 3074F 6. Nonsmoker (Z78.9: Other specified health status) - Please continue to not smoke. Ordered: Body Mass Index (BMI) documented 3008F CBC w/ Auto Diff Comprehensive Metabolic Panel Current tobacco non-user 1036F Depression Screening Negative 3352F Influenza immunization administered or previously received 4274F Lipid Panel Most recent diastolic blood pressure <80 mm Hg 3078F Patient screen for fall risk: no falls in last year or 1 fall with no injury in last year 1101F PSA Screen, Total Systolic BP <130 mm Hg (Most Recent) 3074F 7. Hx of CABG (Z95.1: Presence of aortocoronary bypass graft) - No issues at this time. - Follows with cardio Ordered: CBC w/ Auto Diff Comprehensive Metabolic Panel Lipid Panel PSA Screen, Total 8. Tubular adenoma of colon (D12.6: Benign neoplasm of colon, unspecified) - Follow up with Gen Surg in 2 years. Ordered: CBC w/ Auto Diff Comprehensive Metabolic Panel Lipid Panel PSA Screen, Total 9. Screening PSA (prostate specific antigen) (Z12.5: Encounter for screening for malignant neoplasm of prostate) Ordered: CBC w/ Auto Diff Comprehensive Metabolic Panel Lipid Panel PSA Screen, Total Orders: bumetanide, 1 mg = 1 tab(s), Oral, BID, # 90 tab(s), Refills(s) 0, other reason (Rx) Follow-up No qualifying data available Patient Education BMI for Adults Problem List/Past Medical History Ongoing Adult BMI 38.0-38.9 kg/sq m CAD (coronary artery disease) Chronic anticoagulation Congestive heart failure Factor V Leiden History of asplenia HTN (hypertension) Hx (more content not included)... Normal [facility] Comment on above: Result Comment: Elec tronically Signed By: Yfn ESCOBEDO, Chester Avila\.br\Date and Time Signed: 06/04/23 07:57 EST HEMATOLOGYOrdered By: SYSTEM SYSTEM on 06-04-2023 Basophils/100 WBC (Bld) 0.4 % Normal 0.0 - 2.0 % Remisol Heme Basophils/Leukocyte s Auto (Bld) [Pure # fraction] 0.1 E9/L Normal 0.0 - 0.2 E9/L Remisol Heme Eosinophils (Bld) [#/Vol] 0.0 E9/L Normal 0.0 - 0.5 E9/L Remisol Heme Eosinophils/100 WBC (Bld) 0.1 % Normal 0.0 - 8.0 % Remisol Heme Erythrocyte distribution width (RBC) [Ratio] 16.4 % High 10.9 - 14.2 % Remisol Heme Hematocrit (Bld) [Volume fraction] 42.5 % Normal 37.7 - 49.0 % Remisol Heme Hemoglobin (Bld) [Mass/Vol] 13.7 g/dL Normal 13.5 - 17.5 gm/dL Remisol Heme Lymphocytes (Bld) [#/Vol] 1.2 E9/L Normal 1.0 - 4.0 E9/L Remisol Heme Lymphocytes/100 WBC (Bld) 7.3 % Low 14.0 - 50.0 % Remisol Heme MCH (RBC) [Entitic mass] 30.0 pg Normal 27.0 - 34.0 pg Remisol Heme MCHC (RBC) [Mass/Vol] 32.4 g/dL Normal 31.4 - 36.0 gm/dL Remisol Heme MCV (RBC) [Entitic vol] 92.6 fL Normal 80.0 - 100.0 fL Remisol Heme Monocytes (Bld) [#/Vol] 4.0 E9/L High 0.2 - 1.0 E9/L [facility] Comment on above: Result Comment: Revi ew slide for monocytosis Monocytes/100 WBC (Bld) 25.1 % High 4.0 - 14.0 % Remisol Heme Neutrophils (Bld) [#/Vol] 10.8 E9/L High 2.0 - 7.5 E9/L Remisol Heme Neutrophils/100 WBC (Bld) 67.1 % Normal 36.0 - 75.0 % Remisol Heme Platelet 557.0 E9/L High 150.0 - 500.0 E9/L Remisol Heme Platelet mean volume (Bld) [Entitic vol] 8.2 fL Normal 6.4 - 10.8 fL Remisol Heme RBC (Bld) [#/Vol] 4.6 E12/L Normal 4.3 - 5.9 E12/L Remisol Heme WBC corrected for nucl RBC Auto (Bld) [#/Vol] 16.1 E9/L High 4.0 - 11.0 E9/L [facility] Comment on above: Result Comment: Dora lay with slide review Lipid Panelon 06-04-2023 Cholesterol [Mass/Vol] 92 mg/dL Low 120-200 [facility] Comment on above: Performed By: #### 2 [id number], [id number], [id number], [id number] ####[facility] [id number] [place] [address] Cholesterol in HDL [Mass/Vol] 27 mg/dL Invalid Interpretation Code [facility] Comment on above: Result Comment: '>= 60 LOW RISK' '<= 40 HIGH RISK' Performed By: #### 2 [id number], [id number], [id number] ####[facility] [address] [place] [address] Cholesterol in LDL [Mass/Vol] 54 mg/dL Normal <=129 [facility] Comment on above: Performed By: #### 2 [id number], [id number], [id number], [id number], [id number] ####[facility] [id number] [place] [address] Cholesterol in VLDL [Mass/Vol] 13 mg/dL Normal 7-40 [facility] Comment on above: Performed By: #### 2 [id number], [id number], [id number], [id number], [id number] ####[facility] [id number] [place] [address] Triglyceride [Mass/Vol] 66 mg/dL Normal <=149 [facility] Comment on above: Performed By: #### 2 118370, 1118106, [id number], [id number], [id number] ####[facility] [address] [place] [address] PSA Screen, Totalon 06-04-19 Prostate specific Ag [Mass/Vol] 0.9 ng/mL Normal 0.1-3.5 [facility] Comment on above: Result Comment: The concentration of PSA determined by different manufacturers can vary due to differences in assay methods and reagent specificity. Values obtained from different assay methods cannot be used interchangeably. The methodology used for this result was chemiluminescence using [employer]'s Access [employer] PSA reagent. Performed By: #### 2 [id number], [id number], [id number], [id number], [id number] ####[facility] [address] [place] [address] Patient Educationon 06-04-19 24 Patient Education Nutrition BMI for Adults What is BMI? Body mass index (BMI) is a number that is calculated from a person's weight and height. BMI can help estimate how much of a person's weight is composed of fat. BMI does not measure body fat directly. Rather, it is an alternative to procedures that directly measure body fat, which can be difficult and expensive. BMI can help identify people who may be at higher risk for certain medical problems. What are BMI measurements used for? BMI is used as a screening tool to identify possible weight problems. It helps determine whether a person is obese, overweight, a healthy weight, or underweight. BMI is useful for: ? Identifying a weight problem that may be related to a medical condition or may increase the risk for medical problems. ? Promoting changes, such as changes in diet and exercise, to help reach a healthy weight. BMI screening can be repeated to see if these changes are working. How is BMI calculated? BMI involves measuring your weight in relation to your height. Both height and weight are measured, and the BMI is calculated from those numbers. This can be done either in [place] or metric measurements. Note that charts and online BMI calculators are available to help you find your BMI quickly and easily without having to do these calculations yourself. To calculate your BMI in [place] measurements: 1. Measure your weight in pounds (lb). 2. Multiply the number of pounds by 703. ? For example, for a person who weighs 180 lb, multiply that number by 703, which equals 126,540. 3. Measure your height in inches. Then multiply that number by itself to get a measurement called inches squared. ? For example, for a person who is 70 inches tall, the inches squared measurement is 70 inches x 70 inches, which equals 4,900 inches squared. 4. Divide the total from step 2 (number of lb x 703) by the total from step 3 (inches squared): 126,540 ? 4,900 = 25.8. This is your BMI. To calculate your BMI in metric measurements: 1. Measure your weight in kilograms (kg). 2. Measure your height in meters (m). Then multiply that number by itself to get a measurement called meters squared. ? For example, for a person who is 1.75 m tall, the meters squared measurement is 1.75 m x 1.75 m, which is equal to 3.1 meters squared. 3. Divide the number of kilograms (your weight) by the meters squared number. In this example: 70 ? 3.1 = 22.6. This is your BMI. What do the results mean? BMI charts are used to identify whether you are underweight, normal weight, overweight, or obese. The following guidelines will be used: ? Underweight: BMI less than 18.5. ? Normal weight: BMI between 18.5 and 24.9. ? Overweight: BMI between 25 and 29.9. ? Obese: BMI of 30 or above. Keep these notes in mind: ? Weight includes both fat and muscle, so someone with a muscular build, such as an athlete, may have a BMI that is higher than 24.9. In cases like these, BMI is not an accurate measure of body fat. ? To determine if excess body fat is the cause of a BMI of 25 or higher, further assessments may need to be done by a health care provider. ? BMI is usually interpreted in the same way for men and women. Where to find more information For more information about BMI, including tools to quickly calculate your BMI, go to these websites: ? Centers for Disease Control and Prevention: www.cdc.gov ? [place] [employer]: www.heart.org ? National Heart, Lung, and Blood [place]: www.nhlbi.nih.gov Summary ? Body mass index (BMI) is a number that is calculated from a person's weight and height. ? BMI may help estimate how much of a person's weight is composed of fat. BMI can help identify those who may be at higher risk for certain medical problems. ? BMI can be measured using [place] measurements or metric measurements. ? BMI charts are used to identify whether you are underweight, normal weight, overweight, or obese. This information is not intended to replace advice given to you by your health care provider. Make sure you discuss any questions you have with your health care provider. Document Revised: 12/07/2019 Document Reviewed: 10/14/2019 [employer] Patient Education ? 2022 [employer] Normal [facility] eGFRon 06-04-2023 eGFR 95 mL/min/1.73 m2 Normal >=59 [facility] Comment on above: Order Comment: Order added by Discern Expert. Performed By: #### 2 [id number], [id number], [id number], [id number], [id number] ####[facility] [id number] [id number] Office Visiton 02-10-2023 Follow-up visit [id number] Luke Haywood claudia Ho 1955 M Date Provider Department Center 02/10/2023 Akshat-ASHER NOONAN [facility] Family History Problem Relation Age of Onset Coronary artery disease Father Coronary artery disease Brother Family Status - Relation Status Age at Father Brother Level of Service:32233 [place] OFFICE/OUTPATIENT ESTABLISHED MOD MDM 30-39 MIN Normal [facility] CBC AUTO DIFFon 02-05-2022 BASO # 0.1 103/ul Normal 0.0-0.1 [facility] Comment on above: Performed By: #### C BC #### [facility] [address] [place] [address] Dr. Kaylie Centeno Basophils/100 WBC (Bld) 0.9 % Normal 0.2-2.0 [facility] Comment on above: Performed By: #### C BC #### [facility] [address] [place] [address] Dr. Kaylie Centeno EO # 0.3 103/ul Normal 0.0-0.7 [facility] Comment on above: Performed By: #### C BC #### [facility] [address] [place] [address] Dr. Kaylie Centeno Eosinophils/100 WBC (Bld) 2.9 % Normal 0.9-7.0 [facility] Comment on above: Performed By: #### C BC #### [facility] [address] [place] [address] Dr. Kaylie Centeno Erythrocyte distribution width (RBC) [Ratio] 14.4 % Normal 11.0-15.0 [facility] Comment on above: Performed By: #### C BC #### [facility] [address] [place] [address] Dr. Kaylie Centeno Hematocrit (Bld) [Volume fraction] 47.0 % Normal 42.0-54.0 [facility] Comment on above: Performed By: #### C BC #### [facility] [address] [place] [address] Dr. Kaylie Centeno Hemoglobin (Bld) [Mass/Vol] 15.6 g/dL Normal 14.0-18.0 [facility] Comment on above: Performed By: #### C BC #### [facility] [address] [place] [address] Dr. Kaylie Centeno IG # 0.03 10e3/ul Normal 0.00-0.03 [facility] Comment on above: Performed By: #### C BC #### [facility] [address] [place] [address] Dr. Kaylie Centeno IG % 0.3 % Normal 0.0-0.5 [facility] Comment on above: Performed By: #### C BC #### [facility] [address] [place] [address] Dr. Kaylie Centeno LYMPH # 2.9 103/ul Normal 1.2-3.8 [facility] Comment on above: Performed By: #### C BC #### [facility] [address] [place] [address] Dr. Kaylie Centeno Lymphocytes/100 WBC (Bld) 25.7 % Normal 20.5-60.0 [facility] Comment on above: Performed By: #### C BC #### [facility] [address] [place] [address] Dr. Kaylie Centeno MANUAL DIFF REQ NO Normal [facility] Comment on above: Performed By: #### C BC #### [facility] [address] [place] [address] Dr. Kaylie Centeno MCH (RBC) [Entitic mass] 33.3 pg Normal 25.9-34.0 [facility] Comment on above: Performed By: #### C BC #### [facility] [address] [place] [address] Dr. Kaylie Centeno MCHC (RBC) [Mass/Vol] 33.2 g/dL Normal 29.9-35.2 [facility] Comment on above: Performed By: #### C BC #### [facility] [address] [place] [address] Dr. Kaylie Centeno MCV (RBC) [Entitic vol] 100.2 fL Critically high 80.0-94.0 [facility] Comment on above: Performed By: #### C BC #### [facility] [address] [place] [address] Dr. Kaylie Centeno MONO # 2.0 103/ul Critically high 0.3-0.8 [facility] Comment on above: Performed By: #### C BC #### [facility] [address] [place] [address] Dr. Kaylie Centeno Monocytes/100 WBC (Bld) 17.7 % Critically high 1.7-12.0 [facility] Comment on above: Performed By: #### C BC #### [facility] [address] [place] [address] Dr. Kaylie Centeno NEUT # 5.9 103/ul Normal 1.4-6.5 [facility] Comment on above: Performed By: #### C BC #### [facility] [address] [place] [address] Dr. Kaylie Centeno Neutrophils/100 WBC (Bld) 52.5 % Normal 43.0-75.0 [facility] Comment on above: Performed By: #### C BC #### [facility] [address] [place] [address] Dr. Kaylie Centeno Platelet mean volume (Bld) [Entitic vol] 10.3 fL Normal 9.5-13.5 [facility] Comment on above: Performed By: #### C BC #### [facility] [address] [place] [address] Dr. Kaylie Centeno PLT 354 103/ul Normal 150-450 [facility] Comment on above: Performed By: #### C BC #### [facility] [address] [place] [address] Dr. Kaylie Centeno RBC 4.69 106/ul Critically low 4.70-6.10 [facility] Comment on above: Performed By: #### C BC #### [facility] [address] [place] [address] Dr. Kaylie Centeno WBC 11.2 103/ul Critically high 4.0-11.0 [facility] Comment on above: Performed By: #### C BC #### [facility] [address] [place] [address] Dr. Kaylie Centeno GLYCOHEMOGLOBIN A1Con 2021 ADA RECOMMENDATION SEE BELOW Normal [facility] Comment on above: Result Comment: ADA RECOMMENDED LIMIT 4.0 - 6.0 ADA THERAPEUTIC TARGET < 7.0 ACTION SUGGESTED > 7.0 Performed By: #### A 1C #### [facility] [address] [place] [address] Dr. Kaylie Centeno Glucose [Mass/Vol] 137 mg/dL Normal [facility] Comment on above: Performed By: #### A 1C #### [facility] [address] [place] [address] Dr. Kaylie Centeno HbA1c (Bld) [Mass fraction] 6.4 % Critically high 4.5-6.2 [facility] Comment on above: Performed By: #### A 1C #### [facility] [address] [place] [address] Dr. Kaylie Centeno LIPID PROFILEon 02-05-2022 CHOL-HDL RATIO NORM SEE BELOW Normal [facility] Comment on above: Result Comment: 3.3 - 4.4 LOW RISK 4.4 - 7.1 AVERAGE RISK 7.1 - 11.0 MODERATE RISK >11.0 HIGH RISK Performed By: #### C MP, LIPID #### [facility] [address] [place] [address] Dr. Kaylie Centeno Cholesterol [Mass/Vol] 148 mg/dL Normal <=200 [facility] Comment on above: Performed By: #### C MP, LIPID #### [facility] [address] [place] [address] Dr. Kaylie Centeno Cholesterol in HDL [Mass/Vol] 46 mg/dL Normal 40-60 [facility] Comment on above: Performed By: #### C MP, LIPID #### [facility] [address] [place] [address] Dr. Kaylie Centeno Cholesterol in LDL [Mass/Vol] 65.0 mg/dL Normal [facility] Comment on above: Performed By: #### C MP, LIPID #### [facility] [address] [address] [address] Kaylie Centeno Cholesterol.total/C holesterol in HDL [Mass ratio] 3.2 {ratio} Normal [facility] Comment on above: Performed By: #### C MP, LIPID #### [facility] [address] [address] [address] Kaylie Centeno HDL NORMAL > or = 60 mg/dl - LO W CARDIOVASCULAR RISK <40 mg/dl - HIGH CARDIOVASCULAR RISK Normal [facility] Comment on above: Performed By: #### C MP, LIPID #### [facility] [address] [address] [address] Kaylie Centeno LDL CALC NORMAL SEE BELOW Normal [facility] Comment on above: Result Comment: <100 mg/dl OPTIMAL 100 - 129 mg/dl NEAR OR ABOVE OPTIMAL 130 - 159 mg/dl BORDERLINE HIGH 160 - 189 mg/dl HIGH >190 mg/dl VERY HIGH Performed By: #### C MP, LIPID #### [facility] [address] [place] [address] Dr. Kaylie Centeno Triglyceride [Mass/Vol] 185 mg/dL Critically high <=150 [facility] Comment on above: Performed By: #### C MP, LIPID #### [facility] [address] [place] [address] Dr. Kaylie Centeno VLDL CALC 37.0 mg/dL Normal [facility] Comment on above: Performed By: #### C MP, LIPID #### [facility] [address] [place] [address] Dr. Kaylie Centeno PROF 14(COMP METB)on 022 Albumin [Mass/Vol] 3.7 g/dL Normal 3.4-5.0 [facility] Comment on above: Performed By: #### C MP, LIPID #### [facility] [address] [place] [address] Dr. Kaylie Centeno Albumin/Globulin [Mass ratio] 1.0 {ratio} Normal [facility] Comment on above: Performed By: #### C MP, LIPID #### [facility] [address] [place] [address] Dr. Kaylie Centeno ALP [Catalytic activity/Vol] 79 U/L Normal 46-116 [facility] Comment on above: Performed By: #### C MP, LIPID #### [facility] [address] [place] [address] Dr. Kaylie Centeno ALT [Catalytic activity/Vol] 27 U/L Normal 16-63 [facility] Comment on above: Performed By: #### C MP, LIPID #### [facility] [address] [address] [address] Kaylie Centeno Anion gap [Moles/Vol] 6.3 mmol/L Normal [facility] Comment on above: Performed By: #### C MP, LIPID #### [facility] [address] [place] [address] Dr. Kaylie Centeno AST [Catalytic activity/Vol] 17 U/L Normal 15-37 [facility] Comment on above: Performed By: #### C MP, LIPID #### [facility] [address] [place] [address] Dr. Kaylie Centeno Bilirubin [Mass/Vol] 0.7 mg/dL Normal 0.2-1.0 [facility] Comment on above: Performed By: #### C MP, LIPID #### [facility] [address] [place] [address] Dr. Kaylie Centeno Calcium [Mass/Vol] 9.0 mg/dL Normal 8.5-10.1 [facility] Comment on above: Performed By: #### C MP, LIPID #### [facility] [address] [place] [address] Dr. Kaylie Centeno Chloride [Moles/Vol] 101 mmol/L Normal 98-107 [facility] Comment on above: Performed By: #### C MP, LIPID #### [facility] [address] [address] [address] Kaylie Centeno CO2 [Moles/Vol] 35.6 mmol/L Critically high 21.0-32.0 [facility] Comment on above: Performed By: #### C MP, LIPID #### [facility] [address] [place] [address] Dr. Kaylie Centeno Creatinine [Mass/Vol] 0.91 mg/dL Normal 0.70-1.30 [facility] Comment on above: Performed By: #### C MP, LIPID #### [facility] [address] [address] [address] Kaylie Centeno EGFR-AF GEORGIAN >60 Normal >=60 [facility] Comment on above: Performed By: #### C MP, LIPID #### [facility] [address] [address] [address] Kaylie Centeno EGFR-NON AF GEORGIAN >60 Normal >=60 [facility] Comment on above: Performed By: #### C MP, LIPID #### [facility] [address] [address] [address] Kaylie Centeno Globulin (S) [Mass/Vol] 3.8 g/dL Normal [facility] Comment on above: Performed By: #### C MP, LIPID #### [facility] [address] [place] [address] Dr. Kaylie Centeno Glucose [Mass/Vol] 87 mg/dL Normal 74-106 [facility] Comment on above: Performed By: #### C MP, LIPID #### [facility] [address] [address] [address] Kaylie Centeno Potassium [Moles/Vol] 3.9 mmol/L Normal 3.5-5.1 [facility] Comment on above: Performed By: #### C MP, LIPID #### [facility] [address] [address] [address] Kaylie Centeno Protein [Mass/Vol] 7.5 g/dL Normal 6.4-8.2 [facility] Comment on above: Performed By: #### C MP, LIPID #### [facility] [address] [address] [address] Kaylie Centeno Sodium [Moles/Vol] 139 mmol/L Normal 136-145 [facility] Comment on above: Performed By: #### C MP, LIPID #### [facility] [address] [address] [address] Kaylie Centeno Urea nitrogen [Mass/Vol] 11.0 mg/dL Normal 7.0-18.0 [facility] Comment on above: Performed By: #### C MP, LIPID #### [facility] [address] [address] [address] Kaylie Centeno Urea nitrogen/Creatinine [Mass ratio] 12.1 mg/mg Normal [facility] Comment on above: Performed By: #### C MP, LIPID #### [facility] [address] [place], [place] [address] Dr. Kaylie Centeno XR pre/post mri xrayon 09-25 XR pre/post mri xray [facility] Main [place] [address] [place] [address] MRI Report Signed Patient: Torsten Haywood MR#: [id number] : 1955 Acct:[id number] Age/Sex: 64 / M ADM Date: 09/25/20 Loc: MR Room: Type: [facility] Attending Dr: Felipe Frank DO Ordering Provider: Jordan Frank DO Date of Service: 09/25/20 MR/MR lumbar spine wo con: R29.898 LEG WEAKNESS BILATERAL ([id number]) XR/XR pre/post mri xray: R29.898 LEG WEAKNESS BILATAERL Copies to: Jordan Frank DO MR lumbar spine wo con, XR pre/post mri xray 09/25/2020 7:17 AM SIGNS AND SYMPTOMS: Low back pain radiating down legs bilaterally, right greater than left. Leg weakness. PROTOCOL: Multiplanar multisequence MR images of the lumbar spine were obtained without IV contrast COMPARISON: None. FINDINGS: Radiographs of the lumbar spine: Bilateral L3 pars defects are noted with grade 1 spondylolisthesis measuring 6 mm.. There is preservation of vertebral body heights. There is moderate to severe disc height loss at L3-L4. There is moderate disc height loss at L5-S1. There is mild disc height loss at L1-L2 and L4-L5. Atherosclerotic changes are noted in the abdominal aorta. Facet hypertrophy is present, greatest at L4-L5. Sacroiliac joints are preserved. There is evidence of prior cholecystectomy. There is a calcific density in the left mid the upper abdomen which may represent a renal stone. MRI lumbar spine: Bilateral L3 pars defects are noted with grade 1 spondylolisthesis measuring 6 mm.. There is preservation of vertebral body heights. There is moderate to severe disc height loss at L3-L4. There is moderate disc height loss at L5-S1. There is mild disc height loss at L1-L2 and L4-L5. There is Modic type I endplate edema at L1-L2. There is Modic type II fatty endplate degenerative change at L3-L4. There is a benign hemangioma in the L3 vertebral body. The marrow signal is within normal limits, otherwise. The conus terminates at the superior endplate of the L1 vertebral body level. No epidural or paraspinous fluid collection is appreciated. At T12-L1: There is a tiny left central disc protrusion with minimal spinal canal narrowing. At L1-L2: There is a broad-based disc bulge causing mild spinal canal narrowing without significant neural foraminal narrowing. At L2-L3: There is a normal disc, central canal, and neural foramen. At L3-L4: There is a circumferential disc bulge with facet hypertrophy and endplate osteophyte formation. There is moderate spinal canal stenosis with severe right and moderate to severe left neural foraminal narrowing. Is mass effect on the exiting L3 nerve roots right greater than left. At L4-L5: There is a circumferential disc bulge with facet hypertrophy. There is endplate osteophyte formation. There is mild spinal canal narrowing with moderate to severe left and moderat e right neural foraminal narrowing. Is mass effect on the exiting left L4 nerve roots. At L5-S1: There is a circumferential disc bulge with facet hypertrophy contributing to mild spinal canal narrowing. There is endplate osteophyte formation encroaching on the neural foramina contributing to mild to moderate neural foraminal stenosis bilaterally. MR/MR lumbar spine wo con IMPRESSION: Bilateral L3 pars defects are noted with 6 mm of grade 1 spondylolisthesis of L3 upon L4. At L3-L4: There is a circumferential disc bulge with facet hypertrophy and endplate osteophyte formation. There is moderate spinal canal stenosis with severe right and moderate to severe left neural foraminal narrowing. Is mass effect on the exiting L3 nerve roots right greater than left. At L4-L5: There is a circumferential disc bulge with facet hypertrophy. There is endplate osteophyte formation. There is mild spinal canal narrowing with moderate to severe left and moderate right neural foraminal narrowing. Is mass effect on the exiting left L4 nerve roots. At L5-S1: There is a circumferential disc bulge with facet hypertrophy contributing to mild spinal canal narrowing. There is endplate osteophyte formation encroaching on the neural foramina contributing to mild to moderate neural foraminal stenosis bilaterally. Impression dictated by: Esperanza Humphries M.D.09/25/2020 10:48 AM Dictation Location: [place] [address] Transcribed By: [facility] 09/25/20 104 Dictated By: Esperanza Humphries II, MD 09/25/20 104 Signed By: 09/25/20 1048 [facility] CHEST AND LATERALon 04-30-19 [facility]AL [facility] [address] [place] [address] Patient Name: TORSTEN HAYWOOD : 1955Sex: MAge: Race: WhiteMRN: [id number]. Location: OUTPPatient Status: DVisit #: [id number] Date: 04/30/2017 7:00:00 AMCompleted Date: 04/30/2017 08:06 AMRequesting Provider: SAUD CERVANTES Attending Provider: SAUD CERVANTES Report Copy To: Signs & Symptoms: Post Pacemaker/AICD PlacementHistory: Patient history not availableComments: Check Pacemaker/AICD Lead Position, Chest X-ray PA \EANDE\ LAT in Dept ;DO NOT lift affected arm above shoulder. S/P pacemaker/ICD implant. Verify lead placementExam: CHEST AND LATERALAccession #: [id number] CHEST AND LATERAL 04/30/2017 8:06 AM EST SIGNS AND SYMPTOMS: Post Pacemaker/AICD Placement TECHNOLOGIST COMMENTS: post pacemaker placement QUESTION FOR THE RADIOLOGIST: Check Pacemaker/AICD Lead Position, Chest X-ray PA \EANDE\ LAT in Dept ;DO NOT lift affected arm above shoulder. S/P pacemaker/ICD implant. Verify lead placement PROTOCOL: AP(PA) and Lateral views were obtained. COMPARISON: December 28, 2016. FINDINGS: There is interval placement of a left-sided subclavian single lead pacemaker/AICD. Lead projects over the right ventricle. No pneumothorax. The trachea is midline. Cardiac silhouette remains enlarged. Aorta is tortuous. Mediastinal contours and pulmonary vascular markings are stable. There is no focal opacification or pleural effusion. Sternotomy wires as before. IMPRESSION: 1. Interval placement of left subclavian single lead AICD/pacemaker with lead projecting in the right ventricle. No pneumothorax.2. Stable cardiomegaly without evidence for acute cardiopulmonary process. Approved by:Amadeo Trotter on 04/30/2017 11:04 AM EST. I, Ubaldo Begum, have reviewed the images and report and concur with these findings. Electronically signed by:Ubaldo Begum. Transcribed by: [email or web address], User Resident: AMADEO TROTTERElectronically Signed by: UBALDO BEGUM @ 04/30/2017 10:35 PMI personally read this/these film(s) with this resident Normal [facility] Comment on above: Order Comment: << On admission If not done in ED>>No: Do not add to previous draw Cardiovascular Lab Reporton 04-30-2017 Cardiovascular Lab Report [facility]: [id number] Physician: Saud MurphyDepartment of Sydnie CervantesMedicine Service Date: 04/29/2017Division of Birthdate: 1955Cardiology Room #: 3CD [id number] CardiovascularServicesUnive [facility] [address] [address]Phone Fax Cardiovascular Laboratory ReportINDICATION: Mr. Haywood is a patient of Dr. Ryan Tena in [facility]. He has ischemic cardiomyopathy with a lowejection fraction. He underwent coronary artery bypass grafting by on December 19, 2016, 4 months ago. He continued to have hisejection fraction monitored and it remained below 35% at 25%-30%. He sawDr. Tena, who recommended him defibrillator for primary prevention ofsudden . He has a class 1 indication to defibrillator. 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 I did discuss the casewith the patient and the power of collections attorney prior to the case. Her name Chiara Haywood. He was brought to the EP lab, sterilely prepped and draped.He was given conscious sedation through a peripheral IV and 10 mL ofcontrast dye. Venogram of the left upper extremity was obtained whichoutlined the basilic, cephalic, subclavian system.Utilizing the venogram, percutaneous access was achieved to the subclavianvein.Through the use of a scalpel, Metzenbaum scissors and Bovie, dissection wastaken down to the pectoralis muscle where the pacemaker pocket was createdthrough blunt dissection.Through the use of breakaway introducer sheath and active fixation, singlecoil lead was placed. I had some difficulty initially finding a suitablespot. However, a spot was obtained with very good sensing, pacingthreshold, and satisfactory position. The lead was tested, tethered with 0silk.The wound was irrigated with bacitracin and gentamicin. He had receivedcefazolin and vancomycin intravenously.The device was attached, secured, placed in the pocket, tethered with theheader suture. The wound was closed in 2 running layers of 2-0 Vicryl,running layer of 3-0 Vicryl adhered with Dermabond, Steri-Strips. Spongeand needle counts were correct.Total sedation time was 1 hour. Total fluoroscopy time 16 minutes. Totalcontrast 10 mL. The device was a Medtronic Visia, #[id number]. The leadwas a Medtronic 6935, #[id number]. Sensed R-waves were 8.5 mV, pacingimpedance 513 ohms, high-voltage impedance 74 ohms, pacing threshold at 0.5milliseconds was 0.75 V.ASSESSMENT:1. Conscious sedation.2. Fluoroscopy.3. Contrast injection for venography.4. Venography of the left upper extremity.5. Placement of a single-chamber ICD.Electronically Signed by:Saud Cervantes M.D. 05/04/2017 09:54 A Saud Cervantes M.D.Date Dict: 04/29/2017/10:26 Trang/Saud Cervantes M.D.Date Trans: 04/30/2017 07:04 Trang/[place]_JN:[id number] : Ryan Tena M.D. Heart Failure/ Transplant Mailstop [address] [place] [address] Darin Perea D.O. [address] [place] [address] [facility] Discharge Summaryon 01-14-20 Discharge Summary MR#: [id number] [facility] Tor[facility] Admitted: 12/12/2016 Discharged: 12/29/2016 Date of : 1955 Physician: Torsten Yepez M.D. DISCHARGE SUMMARYPRIMARY DIAGNOSIS: Coronary artery disease, ischemic cardiomyopathy.SUMMARY: Mr. Haywood is a 60-year-old male with CHF, [facility] and was transferred to our hospital.He underwent coronary angiography, and was found to have severe 3-vesselcoronary occlusive disease. He was medically managed by the Cardiologyteam, prior to undergoing urgent CABG x5 on 12/19/2016. The intraoperativecourse was uneventful and he was transferred to CVU in stable, but criticalcondition. He was extubated and the vasopressors were weaned. We begandiuresis, as per usual and we retested of a Factor 5 Leiden, as he has adistant history of the diagnosis, but did not know the details as to why hewas not anticoagulated. We started him on a heparin drip until lab workconfirmed the diagnosis. He was heterozygous for the trait and afterrisks, benefits of anticoagulation were discussed, he elected to startEliquis. The rest of the postop course was mildly complicated by CHF,which was managed medically with diuresis. There were also pleuraleffusions, which did not required drainage. By postop day #7, he wasambulatory, tolerating a regular diet and experiencing an acceptable levelof pain. He was discharged to a fdc facility.DISCHARGE INSTRUCTIONS: He was to observe a cardiac diet. He was toshower only, no tub baths, no creams or lotions to the incision area. Heis to get up out of bed daily and walk. No straining of the chest musclesfor 4-6 weeks after surgery. No driving for 4 weeks after surgery. Nolifting greater than 10 pounds for 4 weeks after surgery. [facility] for education regarding his recentanticoagulation start. He was to follow up with Dr. Yepez and Dr. Heart 2 and 4 weeks intervals. He was to call our office, if he had anyincrease in temperature, increase in drainage, increase in bleeding orunrelieved pain.DISCHARGE MEDICATIONS:1. Amiodarone 200 mg, take 1 tab p.o. daily.2. Apixaban 5 mg, take 1 tab p.o. b.i.d.3. Aspirin 81 mg, take 2 tabs p.o. daily.4. Atorvastatin 80 mg, 1 tab p.o. daily.5. Bumex 2 mg, 1 tab p.o. b.i.d.6. Coreg 3.125 mg, 1 tab p.o. b.i.d.7. Plavix 75 mg, take 1 tab p.o. daily.8. Colace 100 mg, take 1 tab p.o. b.i.d.9. Iron 325 mg, take 1 tab p.o. t.i.d. with meals.10. Lisinopril 2.5 mg take 1 tab p.o. daily.11. Potassium chloride 20 mEq p.o. daily.12. Tylenol 650 mg q.6h p.r.n. for pain.Electronically Signed by:Torsten Yepez M.D. 01/13/2017 02:40 P Torsten Yepez M.D. I personally saw this patient on the day of the encounter, performed thekey portion(s) of the service and participated in the management andconfirm the resident's documentation. Please note there may be anadditional personal documentation from me. Date Dict: 01/12/2017/01:51 P/JOHN Jones, SUPERVISOR ANODIZING-CDate Trans: 01/13/2017 05:24 A/[place]_JN:[id number]: Esperanza Shore M.D. 3000 Dept. Of Surgery, M [address] [address] Normal [facility] BASIC METABOLIC PANELon 10-0 Calcium 8.6 mg/dL Normal 8.6-10.3 [facility] Comment on above: Order Comment: << On admission If not done in ED>>No: Do not add to previous draw Performed By: #### 0 0121, 39483, 50279, 35437, 90860 ####[facility]3000 [facility].[address] Chloride 97 mmol/L Low 98-107 [facility] Comment on above: Order Comment: << On admission If not done in ED>>No: Do not add to previous draw Performed By: #### 0 0121, 80892, 01444, 27460, 97008 ####[facility] CO2 28 mmol/L Normal 21-31 [facility] Comment on above: Order Comment: << On admission If not done in ED>>No: Do not add to previous draw Performed By: #### 0 0121, 45129, 29967, 11244, 83919 ####[facility] Creatinine 1.05 mg/dL Normal 0.70-1.30 [facility] Comment on above: Order Comment: << On admission If not done in ED>>No: Do not add to previous draw Performed By: #### 0 0121, 82230, 15548, 08642, 20655 ####[facility] eGFR (black) mL/min/{1.73_m2} Normal >60 [facility] Comment on above: Order Comment: << On admission If not done in ED>>No: Do not add to previous draw Performed By: #### 0 0121, 51385, 50110, 93131, 30513 ####[facility] eGFR (non-black) mL/min/{1.73_m2} Normal >60 Th e [facility] Comment on above: Order Comment: << On admission If not done in ED>>No: Do not add to previous draw Performed By: #### 0 0121, 77899, 32133, 90372, 68842 ####[facility] Glucose mass conc 103 mg/dL High 70-100 [facility] Comment on above: Order Comment: << On admission If not done in ED>>No: Do not add to previous draw Performed By: #### 0 0121, 61709, 94044, 31435, 09001 ####[facility]3000 [facility].[address] Potassium molar conc 3.5 mmol/L Normal 3.5-5.1 [facility] Comment on above: Order Comment: << On admission If not done in ED>>No: Do not add to previous draw Performed By: #### 0 0121, 58738, 07160, 29238, 10326 ####[facility]3000 [facility] Sodium 135 mmol/L Low 136-145 [facility] Comment on above: Order Comment: << On admission If not done in ED>>No: Do not add to previous draw Performed By: #### 0 0121, 53210, 91781, 87196, 32871 ####[facility]3000 [facility] Urea nitrogen 39 mg/dL High 7-25 [facility] Comment on above: Order Comment: << On admission If not done in ED>>No: Do not add to previous draw Performed By: #### 0 0121, 02699, 33783, 60697, 99053 ####[facility]3000 [facility].[address] CBC COMPLETE BLOOD COUNTon 1 Erythrocyte distribution width Auto Ratio (RBC) 13.7 % Normal 11.5-16.9 [facility] Comment on above: Order Comment: << On admission If not done in ED>>No: Do not add to previous draw Performed By: #### 0 0121, 34473, 02331, 63768, 94914 ####[facility]3000 [facility].[address] Erythrocytes (RBC) 2.54 mill/mm3 Low 4.30-5.90 [facility] Comment on above: Order Comment: << On admission If not done in ED>>No: Do not add to previous draw Performed By: #### 0 0121, 35930, 30802, 78160, 34050 ####[facility]3000 [facility] Hematocrit (HCT) 25.4 % Low 39.0-55.0 [facility] Comment on above: Order Comment: << On admission If not done in ED>>No: Do not add to previous draw Performed By: #### 0 0121, 92139, 12565, 64708, 03418 ####[facility] Hemoglobin mass conc (Bld) 8.4 g/dL Low 13.9-16.3 [facility] Comment on above: Order Comment: << On admission If not done in ED>>No: Do not add to previous draw Performed By: #### 0 0121, 56046, 78811, 54162, 16897 ####[facility]3000 [facility] MCH 33.2 pg High 24.0-32.0 [facility] Comment on above: Order Comment: << On admission If not done in ED>>No: Do not add to previous draw Performed By: #### 0 0121, 80953, 75318, 73388, 59225 ####[facility] MCHC mass conc (RBC) 33.1 g/dL Normal 32.0-36.0 [facility] Comment on above: Order Comment: << On admission If not done in ED>>No: Do not add to previous draw Performed By: #### 0 0121, 37061, 58795, 70998, 30820 ####[facility] MCV 100.1 fL High 80.0-100.0 [facility] Comment on above: Order Comment: << On admission If not done in ED>>No: Do not add to previous draw Performed By: #### 0 0121, 21491, 11860, 97548, 40275 ####[facility] PLAT CNT 551 Thou/mm3 High 100-400 [facility] Comment on above: Order Comment: << On admission If not done in ED>>No: Do not add to previous draw Performed By: #### 0 0121, 29372, 42200, 08595, 87861 ####[facility]3000 [facility] WBC (Leukocytes) 22.4 Thou/mm3 High 4.0-10.0 [facility] Comment on above: Order Comment: << On admission If not done in ED>>No: Do not add to previous draw Performed By: #### 0 0121, 73660, 01627, 77948, 09097 ####[facility]3000 [facility] POC GLUCOSE LABon 12-29-2016 Glucose mass conc 206 mg/dL High 70-100 [facility] Comment on above: Performed By: #### 0 0121, 88064, 24872, 95753, 95442 ####[facility]3000 [facility] Glucose mass conc 188 mg/dL High 70-100 [facility] Comment on above: Performed By: #### 0 0121, 80490, 32690, 70040, 58957 ####[facility]3000 [facility] Glucose mass conc 112 mg/dL High 70-100 [facility] Comment on above: Performed By: #### 0 0121, 88781, 55847, 28274, 71088 ####[facility]3000 [facility] *BLOOD CULTUREon 12-28-2016 *BLOOD CULTURE Clinical Report: (D) Specimen: BLOOD CULTURE Collected: 12/28/2016 19:27 Status: Final Last Updated: 01/03/2017 08:14 CULT RES (Final) No Growth Day 5 Normal [facility] Comment on above: Performed By: #### 0 0121, 49079, 34249, 27373, 69430 ####[facility] *SPUTUM CULTUREon 12-28-2016 *SPUTUM CULTURE Clinical Report: (D) Specimen/Source: SPUTUM/SPUTUM, SPONTANEOUS Collected: 12/28/2016 21:51 Status: Final Last Updated: 12/30/2016 08:09 (1) No: Do not add to previous draw GRAM (Final) 10-25 Squamous Epithelial Cells, <10 Polys Per Low Power Field Many Gram Negative Bacilli Many Gram Positive Cocci In Clusters ISO (Final) Heavy Growth Colonies Consistent with Upper Respiratory Nunu Normal [facility] Comment on above: Order Comment: << On admission If not done in ED>>No: Do not add to previous draw Performed By: #### 0 0121, 98361, 70253, 87510, 55924 ####[facility] BASIC METABOLIC PANELon 10-0 Calcium 8.8 mg/dL Normal 8.6-10.3 [facility] Comment on above: Order Comment: << On admission If not done in ED>>No: Do not add to previous draw Performed By: #### 0 0121, 96491, 95216, 20399, 60549 ####[place] [address] [address] Chloride 96 mmol/L Low 98-107 [facility] Comment on above: Order Comment: << On admission If not done in ED>>No: Do not add to previous draw Performed By: #### 0 0121, 67194, 17159, 76147, 05726 ####[facility]3000 [facility].[address] CO2 28 mmol/L Normal 21-31 [facility] Comment on above: Order Comment: << On admission If not done in ED>>No: Do not add to previous draw Performed By: #### 0 0121, 47176, 93119, 85417, 47060 ####[facility] [place] [address], [place] Creatinine 1.34 mg/dL High 0.70-1.30 [facility] Comment on above: Order Comment: << On admission If not done in ED>>No: Do not add to previous draw Performed By: #### 0 0121, 38246, 70084, 56861, 62074 ####[facility] eGFR (black) mL/min/{1.73_m2} Normal >60 [facility] Comment on above: Order Comment: << On admission If not done in ED>>No: Do not add to previous draw Performed By: #### 0 0121, 88984, 01458, 98581, 35233 ####[facility] eGFR (non-black) 55 ml/min/1.73sq m Abnormal >60 [facility] Comment on above: Order Comment: << On admission If not done in ED>>No: Do not add to previous draw Performed By: #### 0 0121, 85102, 30370, 67758, 81838 ####[facility] Glucose mass conc 111 mg/dL High 70-100 [facility] Comment on above: Order Comment: << On admission If not done in ED>>No: Do not add to previous draw Performed By: #### 0 0121, 71198, 54551, 11389, 13808 ####[facility] Potassium molar conc 3.7 mmol/L Normal 3.5-5.1 [facility] Comment on above: Order Comment: << On admission If not done in ED>>No: Do not add to previous draw Performed By: #### 0 0121, 74395, 24855, 70620, 85382 ####[facility] Sodium 133 mmol/L Low 136-145 [facility] Comment on above: Order Comment: << On admission If not done in ED>>No: Do not add to previous draw Performed By: #### 0 0121, 36573, 75593, 00067, 33316 ####[facility]3000 [facility].[address] Urea nitrogen 41 mg/dL High 7-25 [facility] Comment on above: Order Comment: << On admission If not done in ED>>No: Do not add to previous draw Performed By: #### 0 0121, 86117, 16611, 21310, 99897 ####[facility] CBC W/DIFFon 12-28-2016 BANDS 1.0 % Normal 0.0-4.0 [facility] Comment on above: Performed By: #### 0 0121, 70630, 52274, 03127, 60506 ####[facility]3000 [facility].[address] Basophils Auto #/vol (Bld) 0.0 % Normal 0.0-2.0 [facility] Comment on above: Performed By: #### 0 0121, 16850, 97070, 99570, 64190 ####[facility]3000 [facility].[address] Eosinophils/100 leukocytes 2.0 % Normal 0.0-5.0 [facility] Comment on above: Performed By: #### 0 0121, 05518, 20182, 51777, 76918 ####[facility]3000 [facility].[address] Erythrocyte distribution width Auto Ratio (RBC) 13.9 % Normal 11.5-16.9 [facility] Comment on above: Performed By: #### 0 0121, 97604, 51768, 05852, 55087 ####[facility] Erythrocytes (RBC) 2.72 mill/mm3 Low 4.30-5.90 [facility] Comment on above: Performed By: #### 0 0121, 64326, 25161, 91059, 63096 ####[facility] Hematocrit (HCT) 27.4 % Low 39.0-55.0 [facility] Comment on above: Performed By: #### 0 0121, 89240, 88493, 90209, 22608 ####[facility]3000 [facility] Hemoglobin mass conc (Bld) 8.9 g/dL Low 13.9-16.3 [facility] Comment on above: Performed By: #### 0 0121, 60025, 82706, 60694, 10487 ####[facility]3000 [facility].[address] Lymphocytes/100 leukocytes 3.0 % Low 20.0-40.0 [facility] Comment on above: Performed By: #### 0 0121, 71791, 18482, 53243, 57939 ####[facility]3000 [facility].[address] MCH 32.6 pg High 24.0-32.0 [facility] Comment on above: Performed By: #### 0 0121, 56037, 79387, 72679, 80213 ####[facility] [facility] MCHC mass conc (RBC) 32.4 g/dL Normal 32.0-36.0 [facility] Comment on above: Performed By: #### 0 0121, 36173, 10902, 14130, 39216 ####[facility] MCV 100.6 fL High 80.0-100.0 [facility] Comment on above: Performed By: #### 0 0121, 81453, 25657, 88540, 01542 ####[facility] METHOD Manual blood smear examination performed Normal [facility] Comment on above: Performed By: #### 0 0121, 25997, 13285, 65050, 81650 ####[facility] [facility] MONOS 16.0 % High 2-8 [facility] Comment on above: Performed By: #### 0 0121, 64767, 20197, 97123, 01644 ####[facility] [facility] OTHER 1 NORMAL RED CELL MORP HOLOGY SEEN Normal [facility] Comment on above: Performed By: #### 0 0121, 83523, 57217, 83808, 00517 ####[facility]3000 [facility] PLAT CNT 516 Thou/mm3 High 100-400 [facility] Comment on above: Performed By: #### 0 0121, 32712, 68574, 96041, 22027 ####[facility] SEGS 78.0 % High 50-70 [facility] Comment on above: Performed By: #### 0 0121, 67079, 63513, 69639, 86087 ####[facility] WBC (Leukocytes) 23.0 Thou/mm3 High 4.0-10.0 [facility] Comment on above: Performed By: #### 0 0121, 78646, 29313, 33891, 69805 ####[facility] [place] [address], [facility] MAGNESIUM BLOODon 12-28-2016 Magnesium 2.4 mg/dL Normal 1.9-2.7 [facility] Comment on above: Order Comment: << On admission If not done in ED>>No: Do not add to previous draw Performed By: #### 0 0121, 38859, 67585, 95362, 12340 ####[facility] [place] [address], [facility] PHOSPHORUS BLOODon 7 Phosphate 4.8 mg/dL Normal 2.5-5.0 [facility] Comment on above: Order Comment: << On admission If not done in ED>>No: Do not add to previous draw Performed By: #### 0 0121, 41824, 22593, 98987, 50106 ####[facility] [place] [address], [facility] POC GLUCOSE LABon 12-28-2016 Glucose mass conc 106 mg/dL High 70-100 [facility] Comment on above: Performed By: #### 0 0121, 65178, 50202, 72526, 47461 ####[facility] [place] [address], [place] Glucose mass conc 105 mg/dL High 70-100 [facility] Comment on above: Performed By: #### 0 0121, 08665, 73248, 55916, 29153 ####[facility] [place] [address], [place] Glucose mass conc 134 mg/dL High 70-100 [facility] Comment on above: Performed By: #### 0 0121, 23768, 80908, 15650, 14504 ####[facility] [place] [address], [place] Glucose mass conc 103 mg/dL High 70-100 [facility] Comment on above: Performed By: #### 0 0121, 38733, 50908, 05841, 01754 ####[place] [address] [place] [address], [facility] PORTABLE CHEST 1 VIEWon PORTABLE CHEST 1 VIEW [facility] [address] [place] [address] Patient Name: TORSTEN HAYWOOD : 1955Sex: MAge: Race: WhiteMRN: [id number]. Location: [id number] Status: IVisit #: [id number] Date: 12/28/2016 7:10:00 PMCompleted Date: 12/28/2016 07:38 PMRequesting Provider: MELANIE SPIVEY Attending Provider: TORSTEN YEPEZ Report Copy To: Signs & Symptoms: Elevated WBCHistory: Patient history not availableComments: R/O PneumoniaExam: PORTABLE CHEST 1 VIEWAccession #: [id number] PORTABLE CHEST 1 VIEW 12/28/2016 7:38 PM EDT SIGNS AND SYMPTOMS: Elevated WBC TECHNOLOGIST COMMENTS: Elevated WBC QUESTION FOR THE RADIOLOGIST: R/O Pneumonia PROTOCOL: AP(PA) view was obtained. COMPARISON: December 22 FINDINGS: The heart remains enlarged. There may be a small left basilar effusion. Summary vascularity is normal. Pulmonary interstitial and airspace are normal as well. IMPRESSION: Cardiomegaly with small left effusion. Findings consistent with CHF. Electronically signed by:Rayshawn Hall. Transcribed by: [email or web address], User Resident: Electronically Signed by: RAYSHAWN HALL @ 12/29/2016 07:47 AM Normal [facility] Comment on above: Order Comment: << On admission If not done in ED>>No: Do not add to previous draw URINALYSIS REFLEXon 12-29-19 17 Bilirubin (total) Negative Normal NEGATIVE [facility] Comment on above: Order Comment: << On admission If not done in ED>>No: Do not add to previous draw Performed By: #### 0 0121, 71067, 36392, 72190, 00809 ####[facility] [place] [address], [facility] BLOOD Negative Normal NEGATIVE [facility] Comment on above: Order Comment: << On admission If not done in ED>>No: Do not add to previous draw Performed By: #### 0 0121, 87401, 10760, 64658, 09056 ####[facility] [place] [address], [facility] Erythrocytes (RBC) 0-2 Abnormal 0-0 [facility] Comment on above: Order Comment: << On admission If not done in ED>>No: Do not add to previous draw Performed By: #### 0 0121, 89834, 37436, 04054, 14922 ####[facility] [place] [address], [facility] Glucose mass conc Negative Normal NEGATIVE [facility] Comment on above: Order Comment: << On admission If not done in ED>>No: Do not add to previous draw Performed By: #### 0 0121, 30791, 08315, 27572, 25331 ####[facility] [place] [address], [facility] KETONE Negative Normal NEGATIVE [facility] Comment on above: Order Comment: << On admission If not done in ED>>No: Do not add to previous draw Performed By: #### 0 0121, 14170, 35942, 75917, 78931 ####[facility] [place] [address], [facility] LEUK TRICE Negative Normal NEGATIVE [facility] Comment on above: Order Comment: << On admission If not done in ED>>No: Do not add to previous draw Performed By: #### 0 0121, 97064, 97149, 23451, 89305 ####[facility] [place] [address], [facility] MUCUS THREADS FEW Abnormal NONE SEEN [facility] Comment on above: Order Comment: << On admission If not done in ED>>No: Do not add to previous draw Performed By: #### 0 0121, 95346, 96030, 19860, 51343 ####[facility] [place] [address], [facility] pH of blood 5.0 [pH] Normal 5.0-8.0 [facility] Comment on above: Order Comment: << On admission If not done in ED>>No: Do not add to previous draw Performed By: #### 0 0121, 97638, 86191, 47060, 86892 ####[facility] [place] [address], [facility] Protein Negative Normal NEGATIVE [facility] Comment on above: Order Comment: << On admission If not done in ED>>No: Do not add to previous draw Performed By: #### 0 0121, 73026, 08783, 41238, 80605 ####[facility] [place] [address], [facility] SPEC GRAV 1.017 Normal 1.015-1.020 [facility] Comment on above: Order Comment: << On admission If not done in ED>>No: Do not add to previous draw Performed By: #### 0 0121, 05389, 84015, 34841, 33892 ####[facility] [place] [address], [facility] Urine, appearance CLEAR Normal CLEAR [facility] Comment on above: Order Comment: << On admission If not done in ED>>No: Do not add to previous draw Performed By: #### 0 0121, 35698, 15303, 13875, 64827 ####[facility] [place] [address], [facility] Urine, bacteria in sediment OCC Abnormal NONE SEEN [facility] Comment on above: Order Comment: << On admission If not done in ED>>No: Do not add to previous draw Performed By: #### 0 0121, 19962, 59854, 12017, 90011 ####[facility] [place] [address], [facility] Urine, color YELLOW Normal YELLOW [facility] Comment on above: Order Comment: << On admission If not done in ED>>No: Do not add to previous draw Performed By: #### 0 0121, 53015, 20361, 13181, 34569 ####[facility] [place] [address], [facility] Urine, nitrite presence Negative Normal NEGATIVE [facility] Comment on above: Order Comment: << On admission If not done in ED>>No: Do not add to previous draw Performed By: #### 0 0121, 74123, 67169, 10884, 70754 ####[facility] [place] [address], [facility] WBC UA 0-2 Abnormal 0-0 [facility] Comment on above: Order Comment: << On admission If not done in ED>>No: Do not add to previous draw Performed By: #### 0 0121, 28062, 13889, 95688, 46664 ####[facility] [place] [address], [facility] POC GLUCOSE LABon 12-27-2016 Glucose mass conc 115 mg/dL High 70-100 [facility] Comment on above: Performed By: #### 0 0121, 08057, 05792, 65655, 11184 ####[facility] [place] [address], [place] Glucose mass conc 106 mg/dL High 70-100 [facility] Comment on above: Performed By: #### 0 0121, 47939, 57812, 40159, 35295 ####[facility] [place] [address], [place] Glucose mass conc 147 mg/dL High 70-100 [facility] Comment on above: Performed By: #### 0 0121, 33459, 43387, 03918, 93454 ####[facility] [place] [address], [place] Glucose mass conc 220 mg/dL High 70-100 [facility] Comment on above: Performed By: #### 0 0121, 28763, 56016, 83432, 76943 ####[facility] [place] [address], [place] BASIC METABOLIC PANELon 09-2 Calcium 8.6 mg/dL Normal 8.6-10.3 [facility] Comment on above: Order Comment: << On admission If not done in ED>>No: Do not add to previous draw Performed By: #### 0 0121, 74279, 97365, 34760, 27989 ####[facility] [place] [address], [place] Chloride 97 mmol/L Low 98-107 [facility] Comment on above: Order Comment: << On admission If not done in ED>>No: Do not add to previous draw Performed By: #### 0 0121, 64841, 85452, 49479, 27194 ####[facility] [place] [address], [place] CO2 27 mmol/L Normal 21-31 [facility] Comment on above: Order Comment: << On admission If not done in ED>>No: Do not add to previous draw Performed By: #### 0 0121, 11734, 61235, 42379, 56376 ####[facility]3000 [facility].[address] Creatinine 1.15 mg/dL Normal 0.70-1.30 [facility] Comment on above: Order Comment: << On admission If not done in ED>>No: Do not add to previous draw Performed By: #### 0 0121, 32230, 03672, 79988, 98986 ####[facility]3000 [facility].[address] eGFR (black) mL/min/{1.73_m2} Normal >60 [facility] Comment on above: Order Comment: << On admission If not done in ED>>No: Do not add to previous draw Performed By: #### 0 0121, 42157, 31330, 34488, 30099 ####[facility]3000 [facility].[address] eGFR (non-black) mL/min/{1.73_m2} Normal >60 Th e [facility] Comment on above: Order Comment: << On admission If not done in ED>>No: Do not add to previous draw Performed By: #### 0 0121, 43627, 61648, 61440, 42628 ####[facility]3000 [facility].[address] Glucose mass conc 144 mg/dL High 70-100 [facility] Comment on above: Order Comment: << On admission If not done in ED>>No: Do not add to previous draw Performed By: #### 0 0121, 59399, 15582, 99056, 55514 ####[facility] [facility] [place] [address], [facility] Potassium molar conc 3.5 mmol/L Normal 3.5-5.1 [facility] Comment on above: Order Comment: << On admission If not done in ED>>No: Do not add to previous draw Performed By: #### 0 0121, 24772, 14173, 48385, 69103 ####[facility] [place] [address], [facility] Sodium 133 mmol/L Low 136-145 [facility] Comment on above: Order Comment: << On admission If not done in ED>>No: Do not add to previous draw Performed By: #### 0 0121, 82398, 61488, 77182, 05586 ####[facility] [place] [address], [facility] Urea nitrogen 34 mg/dL High 7-25 [facility] Comment on above: Order Comment: << On admission If not done in ED>>No: Do not add to previous draw Performed By: #### 0 0121, 02307, 02938, 94776, 91627 ####[facility] [place] [address], [facility] POC GLUCOSE LABon 12-26-2016 Glucose mass conc 155 mg/dL High 70-100 [facility] Comment on above: Performed By: #### 0 0121, 63115, 60529, 00973, 35582 ####[facility] [place] [address], [facility] Glucose mass conc 154 mg/dL High 70-100 [facility] Comment on above: Performed By: #### 0 0121, 89267, 73761, 13735, 12778 ####[facility] [place] [address], [facility] BASIC METABOLIC PANELon 11-29 Calcium 8.4 mg/dL Low 8.6-10.3 [facility] Comment on above: Order Comment: << On admission If not done in ED>>No: Do not add to previous draw Performed By: #### 0 0121, 35490, 13872, 83512, 71083 ####[facility] [place] [address], [facility] Chloride 98 mmol/L Normal 98-107 [facility] Comment on above: Order Comment: << On admission If not done in ED>>No: Do not add to previous draw Performed By: #### 0 0121, 75638, 51402, 86262, 27395 ####[facility] [place] [address], [facility] CO2 28 mmol/L Normal 21-31 [facility] Comment on above: Order Comment: << On admission If not done in ED>>No: Do not add to previous draw Performed By: #### 0 0121, 67068, 32691, 01238, 43621 ####[facility] [place] [address], [facility] Creatinine 0.88 mg/dL Normal 0.70-1.30 [facility] Comment on above: Order Comment: << On admission If not done in ED>>No: Do not add to previous draw Performed By: #### 0 0121, 21960, 21439, 02448, 54417 ####[facility] eGFR (black) mL/min/{1.73_m2} Normal >60 [facility] Comment on above: Order Comment: << On admission If not done in ED>>No: Do not add to previous draw Performed By: #### 0 0121, 04155, 22475, 13566, 94142 ####[facility] eGFR (non-black) mL/min/{1.73_m2} Normal >60 Th e [facility] Comment on above: Order Comment: << On admission If not done in ED>>No: Do not add to previous draw Performed By: #### 0 0121, 26136, 15013, 18891, 80277 ####[facility] [place] [address], [facility] Glucose mass conc 117 mg/dL High 70-100 [facility] Comment on above: Order Comment: << On admission If not done in ED>>No: Do not add to previous draw Performed By: #### 0 0121, 57419, 07207, 36012, 38660 ####[facility] [place] [address], [facility] Potassium molar conc 3.8 mmol/L Normal 3.5-5.1 [facility] Comment on above: Order Comment: << On admission If not done in ED>>No: Do not add to previous draw Performed By: #### 0 0121, 60325, 51245, 82775, 41180 ####[facility] [place] [address], [facility] Sodium 132 mmol/L Low 136-145 [facility] Comment on above: Order Comment: << On admission If not done in ED>>No: Do not add to previous draw Performed By: #### 0 0121, 27264, 79990, 56893, 13977 ####[facility] [place] [address], [facility] Urea nitrogen 28 mg/dL High 7-25 [facility] Comment on above: Order Comment: << On admission If not done in ED>>No: Do not add to previous draw Performed By: #### 0 0121, 66189, 94361, 06885, 89876 ####[facility] [place] [address], [facility] POC GLUCOSE LABon 12-25-2016 Glucose mass conc 121 mg/dL High 70-100 [facility] Comment on above: Performed By: #### 0 0121, 34349, 40174, 68258, 87511 ####[facility] [place] [address], [facility] Glucose mass conc 123 mg/dL High 70-100 [facility] Comment on above: Performed By: #### 0 0121, 17504, 24161, 31262, 15231 ####[facility] [place] [address], [facility] Glucose mass conc 143 mg/dL High 70-100 [facility] Comment on above: Performed By: #### 0 0121, 63284, 80898, 43323, 63955 ####[facility] [place] [address], [facility] Glucose mass conc 146 mg/dL High 70-100 [facility] Comment on above: Performed By: #### 0 0121, 40590, 55625, 33971, 40514 ####[facility] UFH HEPARIN ASSAYon 12-26-19 17 UNFRACTIONATED HEPARIN 0.31 IU/mL Normal 0.30-0.70 [facility] Comment on above: Result Comment: Lena roxaban and Apixaban will interfere with the anti Xa assay used tomonitor UFH and LMWH. Performed By: #### 0 0121, 88355, 92998, 20315, 78577 ####[facility] [place] [address], [facility] ARTERIAL BLOOD GAS W/COOXon 12-24-2016 BASE EXCESS 1 mmol/L Normal -2-2 [facility] Comment on above: Performed By: #### 0 0121, 00474, 95689, 56177, 60363 ####[facility] [place] [address], [facility] Bicarbonate (HCO3) 26 mmol/L Normal 23-27 [facility] Comment on above: Performed By: #### 0 0121, 76652, 39093, 38342, 10112 ####[facility] [place] [address], [facility] CO2 42 mmHg Normal 35-45 [facility] Comment on above: Performed By: #### 0 0121, 12850, 02980, 63225, 39361 ####[facility] [place] [address], [facility] COHB 3 % High 0-1 [facility] Comment on above: Performed By: #### 0 0121, 69518, 07372, 54856, 70431 ####[facility] [place] [address], [facility] [employer] HFNC Normal [facility] Comment on above: Performed By: #### 0 0121, 63281, 51691, 98654, 64039 ####[facility] [place] [address], [facility] FIO2 40 % Normal 21-100 [facility] Comment on above: Performed By: #### 0 0121, 52183, 40874, 76395, 96265 ####[facility] [place] [address], [facility] LPM 30.0 LPM High 0.5-20.0 [facility] Comment on above: Performed By: #### 0 0121, 75291, 16148, 48804, 14057 ####[facility] [place] [address], [facility] METHB 1.0 % Normal 0.0-1.5 [facility] Comment on above: Performed By: #### 0 0121, [id number], [id number], [id number], [id number] ####[facility] [place] [address], [facility] O2 saturation 93.3 % Low 94.0-97.0 [facility] Comment on above: Performed By: #### 0 0121, [id number], [id number], 91519, 02522 ####[facility] [facility] [place] [address], [facility] Oxygen in arterial blood 74 mm[Hg] Low 75-100 [facility] Comment on above: Performed By: #### 0 0121, 52516, 80438, 17458, 73306 ####[facility] pH of blood 7.40 [pH] Normal 7.35-7.45 [facility] Comment on above: Performed By: #### 0 0121, 15428, 87434, 29037, 40548 ####[facility] [place] [address], [facility] THB 9.3 g/dL Low 13.9-16.3 [facility] Comment on above: Performed By: #### 0 0121, 14167, 71187, 21742, 17640 ####[facility] BASIC METABOLIC PANELon 09-2 Calcium 8.3 mg/dL Low 8.6-10.3 [facility] Comment on above: Order Comment: << On admission If not done in ED>>No: Do not add to previous draw Performed By: #### 0 0121, 33650, 88840, 14960, 20871 ####[facility] [place] [address], [facility] Chloride 98 mmol/L Normal 98-107 [facility] Comment on above: Order Comment: << On admission If not done in ED>>No: Do not add to previous draw Performed By: #### 0 0121, 25772, 02637, 23942, 01930 ####[facility] [place] [address], [facility] CO2 26 mmol/L Normal 21-31 [facility] Comment on above: Order Comment: << On admission If not done in ED>>No: Do not add to previous draw Performed By: #### 0 0121, 70474, 40890, 60798, 92392 ####[facility] [facility] Creatinine 0.82 mg/dL Normal 0.70-1.30 [facility] Comment on above: Order Comment: << On admission If not done in ED>>No: Do not add to previous draw Performed By: #### 0 0121, 83635, 83793, 70721, 98175 ####[facility] [facility] eGFR (black) mL/min/{1.73_m2} Normal >60 [facility] Comment on above: Order Comment: << On admission If not done in ED>>No: Do not add to previous draw Performed By: #### 0 0121, 54562, 79951, 36414, 74380 ####[facility] [facility].[address] eGFR (non-black) mL/min/{1.73_m2} Normal >60 Th e [facility] Comment on above: Order Comment: << On admission If not done in ED>>No: Do not add to previous draw Performed By: #### 0 0121, 71745, 26120, 09706, 41084 ####[facility] [facility].[address] Glucose mass conc 119 mg/dL High 70-100 [facility] Comment on above: Order Comment: << On admission If not done in ED>>No: Do not add to previous draw Performed By: #### 0 0121, 30561, 76101, 96548, 69668 ####[facility] [facility].[address] Potassium molar conc 4.0 mmol/L Normal 3.5-5.1 [facility] Comment on above: Order Comment: << On admission If not done in ED>>No: Do not add to previous draw Performed By: #### 0 0121, 04397, 55331, 58508, 66223 ####[facility] Sodium 134 mmol/L Low 136-145 [facility] Comment on above: Order Comment: << On admission If not done in ED>>No: Do not add to previous draw Performed By: #### 0 0121, 45300, 09495, 11414, 42441 ####[facility] Urea nitrogen 24 mg/dL Normal 7-25 [facility] Comment on above: Order Comment: << On admission If not done in ED>>No: Do not add to previous draw Performed By: #### 0 0121, 75440, 33995, 76220, 87945 ####[facility] [facility].[address] Consultationon 12-24-2016 Consultation MR#: [id number] Pt. Name: Torsten Haywood Date of Service: 12/24/2016 Room #: 3AB [id number] Birthdate: 1955 Referring Physician: SHWETA FOR CONSULTATION: Possible inpatient rehab admission.CHIEF COMPLAINT: Shortness of breath.HISTORY OF PRESENT ILLNESS: The patient is a 60-year-old male with a1-week history of progressively worsening shortness of breath. [facility] due to concern for cardiac dysfunction. On cardiaccatheterization, the patient was found to have a severely low ejectionfraction as well as multivessel disease. Cardiology was consulted foroptimization of medications and cardiothoracic surgery was consulted aswell and recommended CABG. The patient did have a bypass procedure on12/19/2016, by Dr. Yepez. Postoperatively, the patient has been doingfairly well. He continues to have some shortness of breath, but this hasbeen improving. He denies any chest pain beyond incisional pain. Nofever, no chills. There was concerned from primary care's perspective onthe patient's ability to go home safely and for this reason, [facility] was consulted for rehabilitation needs.REVIEW OF SYSTEMS: No fevers, chills. He denies any chest pain beyondincisional pain. No shortness of breath at rest. No nausea, vomiting,diarrhea. He denies constipation. He has been able to void. All otherreview of systems are negative per HPI.Physical and Occupational Therapy have seen and evaluated this patient.The patient has been fluctuating in terms of his functional ability. On12/23, he was contact guard assist for ambulation of 10 feet, but 1 daypreviously, he was min assist x2 for ambulation.ALLERGIES: No known drug allergies.CURRENT MEDICATIONS: Medications were reviewed. Noted medications includeaspirin, Plavix, and heparin drip.PAST MEDICAL HISTORY: Previous reports of factor V Leiden, coronary arterydisease, dyslipidemia, hypertension, congestive heart failure, systolic.The patient denies any other medical issues.PAST SURGICAL HISTORY: Cholecystectomy and splenectomy.SOCIAL HISTORY: He is not a smoker. He admits to occasional alcohol use.He lives in a two-story home, but only use the first level. There is 3-4steps to enter. He was not using a cane or walker for ambulation prior tothis admission.FAMILY HISTORY: Positive for factor V Leiden.PHYSICAL EXAMINATION: VITAL SIGNS: Show a blood pressure of 108/55, pulse85, respiratory rate 18.GENERAL: No acute distress. The patient does have oxygen on at this time.HEENT: Nontraumatic, but the patient has a central line in place.HEART: Tachycardic, somewhat irregular, may be consistent with atrialfibrillation.LUNGS: Had bilateral rhonchi and decreased respiratory effort, butotherwise clear.ABDOMEN: Distended but soft, nontender. Bowel sounds are positive.EXTREMITIES: Show no significant edema or calf tenderness. Bypass sitesare noted and appeared to be clean, dry, and intact.MUSCULOSKELETAL: The patient has 4/5 strength in all 4 extremities. Thisappears to be symmetrical and is only limited by generalized weakness.NEUROLOGIC: The patient is alert and oriented x3. He answered allquestions appropriately. Follows commands. There are no obvious sensorydeficits to light touch. No dysarthria. No facial asymmetry. Nodifficulty with word finding.SKIN: Bypass site clean, dry, and intact. Chest incision was currentlydressed. We did not examine the incision down this, but there was no grossdrainage.MOOD AND AFFECT: Normal.LABORATORY DATA: Recent labs demonstrate essentially unremarkable BMP.Most recent CBC showed a white cell count of 21, hemoglobin of 8.5.IMPRESSION/ASSESSMENT: Deficits in activities of daily living.1. Coronary artery disease with recent CABG x5.2. Severe systolic congestive heart failure with low ejection fraction, will likely needed a LifeVest.3. Leukocytosis.4. History of factor V Leiden.PLAN OF CARE: At this point, the patient is certainly below his typicalfunctional baseline and has new recently diagnosed severe congestive heartfailure with low ejection fraction and recent cardiac bypass surgery thatwill require close monitoring. I think the patient would benefit fromacute rehab stay to work on his endurance as well as his ability to performactivities of daily living independently as the patient does live alone.He also has noted leukocytosis of uncertain etiology, this may need to bemonitored moving forward.Thank you for the consultation. Please call with any questions.Electronically Signed by:Elia Thomas M.D. 01/09/2017 08:34 A _Elia Thomas M.D.Date Dict: 12/24/2016/08:38 A/Elia Thomas M.D.Date Trans: 12/24/2016 03:44 P/[place]_JN:[id number] : Esperanza Eaton M.D. E R Physican...do Not Send [facility] [address] Normal [facility] POC GLUCOSE LABon 12-24-2016 Glucose mass conc 147 mg/dL High 70-100 [facility] Comment on above: Performed By: #### 0 0121, 08026, 14014, 13847, 94600 ####[facility] [place] [address], [facility] Glucose mass conc 110 mg/dL High 70-100 [facility] Comment on above: Performed By: #### 0 0121, 19552, 24883, 55068, 50939 ####[facility] [id number], [facility] Glucose mass conc 160 mg/dL High 70-100 [facility] Comment on above: Performed By: #### 0 0121, 17702, 09150, 59332, 07949 ####[facility] [place] [address], [facility] Glucose mass conc 127 mg/dL High 70-100 [facility] Comment on above: Performed By: #### 0 0121, 18489, 95001, 83770, 86403 ####[facility] [place] [address], [facility] UFH HEPARIN ASSAYon 12-25-19 UNFRACTIONATED HEPARIN 0.33 IU/mL Normal 0.30-0.70 [facility] Comment on above: Result Comment: Lena roxaban and Apixaban will interfere with the anti Xa assay used tomonitor UFH and LMWH. Performed By: #### 0 0121, 71267, 92264, 77999, 00452 ####[facility] [place] [address], [facility] UNFRACTIONATED HEPARIN 0.18 IU/mL Low 0.30-0.70 [facility] Comment on above: Result Comment: Lena roxaban and Apixaban will interfere with the anti Xa assay used tomonitor UFH and LMWH. Performed By: #### 0 0121, 30478, 58353, 40502, 07192 ####[facility] [place] [address], [facility] UNFRACTIONATED HEPARIN 0.37 IU/mL Normal 0.30-0.70 [facility] Comment on above: Result Comment: Lena roxaban and Apixaban will interfere with the anti Xa assay used tomonitor UFH and LMWH. Performed By: #### 0 0121, 48206, 49196, 49049, 66997 ####[facility] [place] [address], [facility] ARTERIAL BLOOD GAS W/COOXon 12-23-2016 BASE EXCESS 7 mmol/L High -2-2 [facility] Comment on above: Performed By: #### 0 0121, 70960, 82687, 42970, 96976 ####[facility] [place] [address], [facility] Bicarbonate (HCO3) 32 mmol/L Critically high 23-27 T [facility] Comment on above: Performed By: #### 0 0121, 14348, 86542, 27561, 55247 ####[facility] CO2 51 mmHg High 35-45 [facility] Comment on above: Performed By: #### 0 0121, 81455, 34469, 44473, 95536 ####[facility] COHB 2 % High 0-1 [facility] Comment on above: Performed By: #### 0 0121, 65801, 95893, 13402, 58978 ####[facility] DELIVERY SYSTEMS BIPAP 12/6 Normal [facility] Comment on above: Performed By: #### 0 0121, 31872, 74241, 12094, 56143 ####[facility] [place] [address], [facility] LPM 10.0 LPM Normal 0.5-20.0 [facility] Comment on above: Performed By: #### 0 0121, 92353, 19016, 32712, 83128 ####[facility] [place] [address], [facility] METHB 1.0 % Normal 0.0-1.5 [facility] Comment on above: Performed By: #### 0 0121, 56039, 63496, 13873, 86885 ####[facility] [place] [address], [facility] MODALITY BIPAP 12/6 Normal [facility] Comment on above: Performed By: #### 0 0121, 65939, 78792, 71092, 79326 ####[facility] [place] [address], [facility] O2 saturation 95.2 % Normal 94.0-97.0 [facility] Comment on above: Performed By: #### 0 0121, 72856, 60252, 11634, 37804 ####[facility] [place] [address], [facility] Oxygen in arterial blood 106 mm[Hg] Critically high 75-100 [facility] Comment on above: Performed By: #### 0 0121, 05845, 30187, 97166, 34976 ####[facility] [place] [address], [facility] PEEP 6.0 CMH20 Normal [facility] Comment on above: Performed By: #### 0 0121, 81809, 95096, 31016, 70408 ####[facility] [place] [address], [facility] pH of blood 7.41 [pH] Normal 7.35-7.45 [facility] Comment on above: Performed By: #### 0 0121, 94286, 49254, 36609, 22957 ####[facility] [place] [address], [facility] THB 8.8 g/dL Low 13.9-16.3 [facility] Comment on above: Performed By: #### 0 0121, 61138, 29040, 48577, 13171 ####[facility] ARTERIAL BLOOD GAS WITH ICAo n 12-23-2016 BASE EXCESS 9 mmol/L High -2-2 [facility] Comment on above: Performed By: #### 0 0121, 16135, 41661, 82203, 44402 ####[facility] Bicarbonate (HCO3) 35 mmol/L Critically high 23-27 T [facility] Comment on above: Performed By: #### 0 0121, 61651, 93572, 14688, 72503 ####[facility] CO2 54 mmHg High 35-45 [facility] Comment on above: Performed By: #### 0 0121, 12978, 51470, 04304, 62408 ####[facility] DELIVERY SYSTEMS HIGH FLOW NASAL CANNULA Normal [facility] Comment on above: Performed By: #### 0 0121, 56267, 82697, 77693, 17417 ####[facility] FIO2 45 % Normal 21-100 [facility] Comment on above: Performed By: #### 0 0121, 29921, 97023, 27215, 89471 ####[facility] IONIZED CALCIUM 1.10 mmol/L Low 1.13-1.32 [facility] Comment on above: Performed By: #### 0 0121, 17907, 47111, 40256, 86537 ####[facility] [place] [address], [facility] LPM 30.0 LPM High 0.5-20.0 [facility] Comment on above: Performed By: #### 0 0121, 38604, 35508, 37355, 95709 ####[facility] [place] [address], [facility] O2 saturation 91.3 % Low 94.0-97.0 [facility] Comment on above: Performed By: #### 0 0121, 32036, 04898, 08693, 51519 ####[facility] [place] [address], [facility] Oxygen in arterial blood 61 mm[Hg] Low 75-100 [facility] Comment on above: Performed By: #### 0 0121, 86176, 52798, 81250, 98986 ####[facility] [place] [address], [facility] pH of blood 7.42 [pH] Normal 7.35-7.45 [facility] Comment on above: Performed By: #### 0 0121, 60391, 03114, 25048, 25614 ####[facility] [place] [address], [facility] BASE EXCESS 3 mmol/L High -2-2 [facility] Comment on above: Performed By: #### 0 0121, 45769, 91162, 32914, 26088 ####[facility] [place] [address], [facility] Bicarbonate (HCO3) 28 mmol/L High 23-27 [facility] Comment on above: Performed By: #### 0 0121, 06653, 05845, 68714, 05261 ####[facility] [place] [address], [place] CO2 41 mmHg Normal 35-45 [facility] Comment on above: Performed By: #### 0 0121, 16940, 95014, 45045, 40774 ####[facility] DELIVERY SYSTEMS HIGH FLOW NASAL CANNULA Normal [facility] Comment on above: Performed By: #### 0 0121, 05897, 40081, 91522, 71606 ####[facility] [place] [address], [facility] FIO2 40 % Normal 21-100 [facility] Comment on above: Performed By: #### 0 0121, 90040, 44768, 12625, 22391 ####[facility] IONIZED CALCIUM 0.95 mmol/L Low 1.13-1.32 [facility] Comment on above: Performed By: #### 0 0121, 54785, 95617, 35235, 62882 ####[facility] LPM 30.0 LPM High 0.5-20.0 [facility] Comment on above: Performed By: #### 0 0121, 04593, 88897, 79995, 51412 ####[facility] [place] [address], [facility] O2 saturation 94.3 % Normal 94.0-97.0 [facility] Comment on above: Performed By: #### 0 0121, 58393, 63452, 04744, 15474 ####[facility] Oxygen in arterial blood 69 mm[Hg] Low 75-100 [facility] Comment on above: Performed By: #### 0 0121, 23825, 42680, 08390, 99625 ####[facility] [place] [address], [facility] pH of blood 7.44 [pH] Normal 7.35-7.45 [facility] Comment on above: Performed By: #### 0 0121, 90313, 78103, 34013, 12668 ####[facility] [place] [address], [facility] BASIC METABOLIC PANELon 09-2 Calcium 8.1 mg/dL Low 8.6-10.3 [facility] Comment on above: Order Comment: << On admission If not done in ED>>No: Do not add to previous draw Performed By: #### 0 0121, 96498, 35213, 34962, 63335 ####[facility] [place] [address], [facility] Chloride 97 mmol/L Low 98-107 [facility] Comment on above: Order Comment: << On admission If not done in ED>>No: Do not add to previous draw Performed By: #### 0 0121, 55234, 68978, 27808, 67629 ####[facility] [facility] CO2 31 mmol/L Normal 21-31 [facility] Comment on above: Order Comment: << On admission If not done in ED>>No: Do not add to previous draw Performed By: #### 0 0121, 95973, 35284, 19522, 78185 ####[facility] [facility] Creatinine 0.83 mg/dL Normal 0.70-1.30 [facility] Comment on above: Order Comment: << On admission If not done in ED>>No: Do not add to previous draw Performed By: #### 0 0121, 92383, 89607, 49455, 67574 ####[facility] [place] [address], [facility] eGFR (black) mL/min/{1.73_m2} Normal >60 [facility] Comment on above: Order Comment: << On admission If not done in ED>>No: Do not add to previous draw Performed By: #### 0 0121, 27839, 38566, 34890, 10955 ####[facility] [place] [address], [facility] eGFR (non-black) mL/min/{1.73_m2} Normal >60 Th e [facility] Comment on above: Order Comment: << On admission If not done in ED>>No: Do not add to previous draw Performed By: #### 0 0121, 46624, 44271, 88034, 73689 ####[facility] [place] [address], [facility] Glucose mass conc 147 mg/dL High 70-100 [facility] Comment on above: Order Comment: << On admission If not done in ED>>No: Do not add to previous draw Performed By: #### 0 0121, 95625, 04680, 54974, 10241 ####[facility] [place] [address], [facility] Potassium molar conc 3.6 mmol/L Normal 3.5-5.1 [facility] Comment on above: Order Comment: << On admission If not done in ED>>No: Do not add to previous draw Performed By: #### 0 0121, 21936, 71805, 18300, 04099 ####[facility] [place] [address], [facility] Sodium 134 mmol/L Low 136-145 [facility] Comment on above: Order Comment: << On admission If not done in ED>>No: Do not add to previous draw Performed By: #### 0 0121, 91352, 36446, 54726, 63130 ####[facility] [place] [address], [facility] Urea nitrogen 25 mg/dL Normal 7-25 [facility] Comment on above: Order Comment: << On admission If not done in ED>>No: Do not add to previous draw Performed By: #### 0 0121, 68972, 24179, 84823, 91954 ####[facility] [place] [address], [facility] Calcium 7.7 mg/dL Low 8.6-10.3 [facility] Comment on above: Order Comment: << On admission If not done in ED>>No: Do not add to previous draw Performed By: #### 0 0121, 91729, 21469, 47480, 25066 ####[facility] [place] [address], [facility] Chloride 98 mmol/L Normal 98-107 [facility] Comment on above: Order Comment: << On admission If not done in ED>>No: Do not add to previous draw Performed By: #### 0 0121, 68206, 14221, 99691, 21842 ####[facility] [place] [address], [facility] CO2 30 mmol/L Normal 21-31 [facility] Comment on above: Order Comment: << On admission If not done in ED>>No: Do not add to previous draw Performed By: #### 0 0121, 73663, 40739, 08390, 66416 ####[facility] Creatinine 0.81 mg/dL Normal 0.70-1.30 [facility] Comment on above: Order Comment: << On admission If not done in ED>>No: Do not add to previous draw Performed By: #### 0 0121, 01230, 73389, 52480, 75963 ####[facility] [place] [address], [facility] Glucose mass conc 110 mg/dL High 70-100 [facility] Comment on above: Order Comment: << On admission If not done in ED>>No: Do not add to previous draw Performed By: #### 0 0121, 69738, 28619, 73400, 96931 ####[facility] Potassium molar conc 4.2 mmol/L Normal 3.5-5.1 [facility] Comment on above: Order Comment: << On admission If not done in ED>>No: Do not add to previous draw Performed By: #### 0 0121, 61683, 38637, 45386, 93952 ####[facility] Urea nitrogen 23 mg/dL Normal 7-25 [facility] Comment on above: Order Comment: << On admission If not done in ED>>No: Do not add to previous draw Performed By: #### 0 0121, 48089, 59759, 74282, 99997 ####[facility] CARDIAC MAGNESIUM BLOODon Magnesium 2.1 mg/dL Normal 1.9-2.7 [facility] Comment on above: Performed By: #### 0 0121, 68601, 64238, 75173, 19219 ####[facility] [facility] Magnesium 2.2 mg/dL Normal 1.9-2.7 [facility] Comment on above: Performed By: #### 0 0121, 72784, 33282, 90962, 17736 ####[facility] CBC COMPLETE BLOOD COUNTon 0 12-23-2016 Erythrocyte distribution width Auto Ratio (RBC) 14.1 % Normal 11.5-16.9 [facility] Comment on above: Order Comment: << On admission If not done in ED>>No: Do not add to previous draw Performed By: #### 0 0121, 99351, 95807, 43551, 17203 ####[facility] [place] [address], [facility] Erythrocytes (RBC) 2.57 mill/mm3 Low 4.30-5.90 [facility] Comment on above: Order Comment: << On admission If not done in ED>>No: Do not add to previous draw Performed By: #### 0 0121, 59731, 63133, 16731, 80664 ####[facility] Hematocrit (HCT) 25.9 % Low 39.0-55.0 [facility] Comment on above: Order Comment: << On admission If not done in ED>>No: Do not add to previous draw Performed By: #### 0 0121, 50814, 32489, 78666, 14654 ####[facility] Hemoglobin mass conc (Bld) 8.5 g/dL Low 13.9-16.3 [facility] Comment on above: Order Comment: << On admission If not done in ED>>No: Do not add to previous draw Performed By: #### 0 0121, 44079, 97643, 89411, 32731 ####[facility] MCH 33.1 pg High 24.0-32.0 [facility] Comment on above: Order Comment: << On admission If not done in ED>>No: Do not add to previous draw Performed By: #### 0 0121, 28719, 68641, 16513, 03884 ####[facility] [facility] MCHC mass conc (RBC) 32.8 g/dL Normal 32.0-36.0 [facility] Comment on above: Order Comment: << On admission If not done in ED>>No: Do not add to previous draw Performed By: #### 0 0121, 62259, 47400, 75638, 98785 ####[facility] [facility] MCV 101.0 fL High 80.0-100.0 [facility] Comment on above: Order Comment: << On admission If not done in ED>>No: Do not add to previous draw Performed By: #### 0 0121, 33850, 82695, 83546, 62157 ####[facility] [place] [address], [facility] PLAT CNT 199 Thou/mm3 Normal 100-400 [facility] Comment on above: Order Comment: << On admission If not done in ED>>No: Do not add to previous draw Performed By: #### 0 0121, 07327, 29206, 62531, 20142 ####[facility] WBC (Leukocytes) 21.3 Thou/mm3 High 4.0-10.0 [facility] Comment on above: Order Comment: << On admission If not done in ED>>No: Do not add to previous draw Performed By: #### 0 0121, 01333, 70882, 02419, 07905 ####[facility] MAGNESIUM BLOODon 12-23-2016 Magnesium 1.7 mg/dL Low 1.9-2.7 [facility] Comment on above: Performed By: #### 0 0121, 29106, 50177, 35515, 21419 ####[facility] [place] [address], [facility] POC GLUCOSE LABon 12-23-2016 Glucose mass conc 170 mg/dL High 70-100 [facility] Comment on above: Performed By: #### 0 0121, 86708, 12960, 46474, 91759 ####[facility] [place] [address], [facility] Glucose mass conc 137 mg/dL High 70-100 [facility] Comment on above: Performed By: #### 0 0121, 51882, 64799, 91382, 94332 ####[facility] [place] [address], [facility] Glucose mass conc 120 mg/dL High 70-100 [facility] Comment on above: Performed By: #### 0 0121, 74020, 00789, 65738, 95400 ####[facility] [place] [address], [facility] Glucose mass conc 126 mg/dL High 70-100 [facility] Comment on above: Performed By: #### 0 0121, 67812, 03043, 90550, 91417 ####[facility] [place] [address], [facility] Glucose mass conc 123 mg/dL High 70-100 [facility] Comment on above: Performed By: #### 0 0121, 40026, 94722, 30073, 16003 ####[facility] [place] [address], [facility] POTASSIUM BLOODon 12-23-2016 Potassium molar conc 4.1 mmol/L Normal 3.5-5.1 [facility] Comment on above: Order Comment: << On admission If not done in ED>>No: Do not add to previous draw Performed By: #### 0 0121, 32701, 50687, 97678, 82498 ####[facility] [place] [address], [facility] UFH HEPARIN ASSAYon 12-24-19 17 UNFRACTIONATED HEPARIN 0.33 IU/mL Normal 0.30-0.70 [facility] Comment on above: Result Comment: Winnie roxaban and Apixaban will interfere with the anti Xa assay used tomonitor UFH and LMWH. Performed By: #### 0 0121, 55975, 51196, 72651, 31850 ####[facility], [place] [address] UNFRACTIONATED HEPARIN 0.32 IU/mL Normal 0.30-0.70 [facility] Comment on above: Result Comment: Lena roxaban and Apixaban will interfere with the anti Xa assay used tomonitor UFH and LMWH. Performed By: #### 0 0121, 25087, 08743, 10202, 72273 ####[facility] UNFRACTIONATED HEPARIN 0.20 IU/mL Low 0.30-0.70 [facility] Comment on above: Result Comment: Winnie roxaban and Apixaban will interfere with the anti Xa assay used tomonitor UFH and LMWH. Performed By: #### 0 0121, 01028, 76252, 04485, 32082 ####[facility] UNFRACTIONATED HEPARIN 0.47 IU/mL Normal 0.30-0.70 [facility] Comment on above: Result Comment: Winnie roxaban and Apixaban will interfere with the anti Xa assay used tomonitor UFH and LMWH. Performed By: #### 0 0121, 73809, 52884, 94502, 85084 ####[facility] APTTon 12-22-2016 aPTT 59.4 s High 25.0-35.0 [facility] Comment on above: Order Comment: << On admission If not done in ED>>No: Do not add to previous draw Result Comment: ALL RESULTS MUST BE INTERPRETED WITH RESPECT TO BLOOD DRAWING ARTIFACTOR DILUTION ERROR OF ANTICOAGULANT AT THE TIME OF SAMPLING.THE APTT SHOULD NOT BE USED TO MONITOR UNFRACTIONATED HEPARIN THERAPY, THIS LABORATORY NO LONGER HAS AN ESTABLISHED THERAPEUTIC RANGE BASEDON THE APTT. IT IS RECOMMENDED THAT THE UFH - HEPARIN ASSAY (ANTI-XAACTIVITY) BE USED FOR THIS PURPOSE. Performed By: #### 0 0121, 38047, 40861, 09613, 06799 ####[facility] ARTERIAL BLOOD GAS W/COOXon 12-22-2016 BASE EXCESS 9 mmol/L High -2-2 [facility] Comment on above: Performed By: #### 0 0121, 25635, 13641, 49091, 92951 ####[facility] Bicarbonate (HCO3) 33 mmol/L Critically high 23-27 T he [facility] Comment on above: Performed By: #### 0 0121, 05201, 41702, 49523, 86131 ####[facility] CO2 47 mmHg High 35-45 [facility] Comment on above: Performed By: #### 0 0121, 58977, 85784, 55735, 19442 ####[facility] COHB 1 % Normal 0-1 [facility] Comment on above: Performed By: #### 0 0121, 30654, 38484, 91939, 66070 ####[facility] DELIVERY SYSTEMS OTHER Normal [facility] Comment on above: Performed By: #### 0 0121, 33621, 28636, 09173, 48461 ####[facility] FIO2 60 % Normal 21-100 [facility] Comment on above: Performed By: #### 0 0121, 82124, 01854, 51245, 90191 ####[facility] LPM 35.0 LPM High 0.5-20.0 [facility] Comment on above: Performed By: #### 0 0121, 77394, 23014, 29842, 29522 ####[facility] [place] [address], [facility] METHB 1.1 % Normal 0.0-1.5 [facility] Comment on above: Performed By: #### 0 0121, 63120, 75438, 33143, 94473 ####[facility] [place] [address], [place] O2 saturation 94.5 % Normal 94.0-97.0 [facility] Comment on above: Performed By: #### 0 0121, 86431, 30150, 01770, 45314 ####[facility] [place] [address], [facility] Oxygen in arterial blood 78 mm[Hg] Normal 75-100 [facility] Comment on above: Performed By: #### 0 0121, 11853, 71242, 44271, 84998 ####[facility] [place] [address], [facility] pH of blood 7.46 [pH] High 7.35-7.45 [facility] Comment on above: Performed By: #### 0 0121, 93053, 10615, 69230, 10483 ####[facility] [place] [address], [facility] THB 9.5 g/dL Low 13.9-16.3 [facility] Comment on above: Performed By: #### 0 0121, 03434, 09223, 54986, 77018 ####[facility] [place] [address], [place] ARTERIAL BLOOD GAS WITH ICAo n 12-22-2016 BASE EXCESS 10 mmol/L High -2-2 [facility] Comment on above: Performed By: #### 0 0121, 05494, 58406, 97013, 46297 ####[facility], [place] [address] [place] [address] Bicarbonate (HCO3) 35 mmol/L Critically high 23-27 T he [facility] Comment on above: Performed By: #### 0 0121, 65353, 77572, 54236, 75465 ####[facility] CO2 53 mmHg High 35-45 [facility] Comment on above: Performed By: #### 0 0121, 81335, 89666, 64814, 04570 ####[facility] DELIVERY SYSTEMS HIGH FLOW NASAL CANNULA Normal [facility] Comment on above: Performed By: #### 0 0121, 87352, 42725, 69163, 82671 ####[facility] [facility] FIO2 60 % Normal 21-100 [facility] Comment on above: Performed By: #### 0 0121, 34280, 35631, 28107, 37351 ####[facility] IONIZED CALCIUM 1.11 mmol/L Low 1.13-1.32 [facility] Comment on above: Performed By: #### 0 0121, 17593, 67150, 28790, 07398 ####[facility] LPM 35.0 LPM High 0.5-20.0 [facility] Comment on above: Performed By: #### 0 0121, 02464, 25431, 70230, 04958 ####[facility] O2 saturation 95.1 % Normal 94.0-97.0 [facility] Comment on above: Performed By: #### 0 0121, 70313, 48365, 80961, 23964 ####[facility] [place] [address], [facility] Oxygen in arterial blood 100 mm[Hg] Normal 75-100 [facility] Comment on above: Performed By: #### 0 0121, 10746, 62810, 54275, 28438 ####[facility] [place] [address], [facility] pH of blood 7.43 [pH] Normal 7.35-7.45 [facility] Comment on above: Performed By: #### 0 0121, 82939, 37695, 68832, 74597 ####[facility] [place] [address], [facility] BASE EXCESS 5 mmol/L High -2-2 [facility] Comment on above: Performed By: #### 0 0121, 93661, 61050, 72553, 90060 ####[facility] [place] [address], [facility] Bicarbonate (HCO3) 31 mmol/L Critically high 23-27 T he [facility] Comment on above: Performed By: #### 0 0121, 70524, 94248, 06313, 18140 ####[facility] [place] [address], [facility] CO2 54 mmHg High 35-45 [facility] Comment on above: Performed By: #### 0 0121, 48145, 18255, 57774, 16096 ####[facility] [place] [address], [facility] DELIVERY SYSTEMS HFNC Normal [facility] Comment on above: Performed By: #### 0 0121, 76216, 81486, 64077, 19065 ####[facility] [place] [address], [facility] FIO2 90 % Normal 21-100 [facility] Comment on above: Performed By: #### 0 0121, 94658, 89961, 03999, 41945 ####[facility] [place] [address], [facility] IONIZED CALCIUM 1.14 mmol/L Normal 1.13-1.32 [facility] Comment on above: Performed By: #### 0 0121, 14862, 94150, 48151, 77817 ####[facility] [place] [address], [place] LPM 40.0 LPM High 0.5-20.0 [facility] Comment on above: Performed By: #### 0 0121, 79034, 60578, 76628, 28276 ####[facility] [place] [address], [facility] O2 saturation 96.5 % Normal 94.0-97.0 [facility] Comment on above: Performed By: #### 0 0121, 40340, 85389, 41800, 65994 ####[facility] [place] [address], [facility] Oxygen in arterial blood 88 mm[Hg] Normal 75-100 [facility] Comment on above: Performed By: #### 0 0121, 91845, 89945, 19871, 82529 ####[facility] [place] [address], [facility] pH of blood 7.37 [pH] Normal 7.35-7.45 [facility] Comment on above: Performed By: #### 0 0121, 21102, 82508, 37322, 41717 ####[facility] [place] [address], [facility] BASIC METABOLIC PANELon 09-2 Calcium 8.0 mg/dL Low 8.6-10.3 [facility] Comment on above: Order Comment: << On admission If not done in ED>>No: Do not add to previous draw Performed By: #### 0 0121, 39631, 97421, 58275, 59391 ####[facility] [place] [address], [facility] Chloride 99 mmol/L Normal 98-107 [facility] Comment on above: Order Comment: << On admission If not done in ED>>No: Do not add to previous draw Performed By: #### 0 0121, 59479, 39049, 89629, 09529 ####[facility] [place] [address], [facility] CO2 29 mmol/L Normal 21-31 [facility] Comment on above: Order Comment: << On admission If not done in ED>>No: Do not add to previous draw Performed By: #### 0 0121, 16239, 84445, 22290, 12867 ####[facility] [place] [address], [facility] Creatinine 0.80 mg/dL Normal 0.70-1.30 [facility] Comment on above: Order Comment: << On admission If not done in ED>>No: Do not add to previous draw Performed By: #### 0 0121, 48013, 94532, 80728, 00569 ####[facility] eGFR (black) mL/min/{1.73_m2} Normal >60 [facility] Comment on above: Order Comment: << On admission If not done in ED>>No: Do not add to previous draw Performed By: #### 0 0121, 43664, 91459, 25217, 03309 ####[facility] eGFR (non-black) mL/min/{1.73_m2} Normal >60 Th e [facility] Comment on above: Order Comment: << On admission If not done in ED>>No: Do not add to previous draw Performed By: #### 0 0121, 35652, 31205, 21063, 32196 ####[facility] [place] [address], [facility] Glucose mass conc 122 mg/dL High 70-100 [facility] Comment on above: Order Comment: << On admission If not done in ED>>No: Do not add to previous draw Performed By: #### 0 0121, 58572, 51339, 85054, 11191 ####[facility] [place] [address], [facility] Potassium molar conc 4.2 mmol/L Normal 3.5-5.1 [facility] Comment on above: Order Comment: << On admission If not done in ED>>No: Do not add to previous draw Performed By: #### 0 0121, 54002, 01522, 77593, 77446 ####[facility] Sodium 133 mmol/L Low 136-145 [facility] Comment on above: Order Comment: << On admission If not done in ED>>No: Do not add to previous draw Performed By: #### 0 0121, 64045, 87028, 75267, 42836 ####[facility] [place] [address], [facility] Urea nitrogen 24 mg/dL Normal 7-25 [facility] Comment on above: Order Comment: << On admission If not done in ED>>No: Do not add to previous draw Performed By: #### 0 0121, 71709, 00037, 40762, 17557 ####[facility] [place] [address], [facility] CBC COMPLETE BLOOD COUNTon 0 12-22-2016 Erythrocyte distribution width Auto Ratio (RBC) 13.6 % Normal 11.5-16.9 [facility] Comment on above: Order Comment: << On admission If not done in ED>>No: Do not add to previous draw Performed By: #### 0 0121, 97726, 96235, 27413, 47876 ####[facility] Erythrocytes (RBC) 2.85 mill/mm3 Low 4.30-5.90 [facility] Comment on above: Order Comment: << On admission If not done in ED>>No: Do not add to previous draw Performed By: #### 0 0121, 56058, 04730, 68482, 24209 ####[facility] Hematocrit (HCT) 28.6 % Low 39.0-55.0 [facility] Comment on above: Order Comment: << On admission If not done in ED>>No: Do not add to previous draw Performed By: #### 0 0121, 15005, 30111, 37678, 25423 ####[facility] Hemoglobin mass conc (Bld) 9.5 g/dL Low 13.9-16.3 [facility] Comment on above: Order Comment: << On admission If not done in ED>>No: Do not add to previous draw Performed By: #### 0 0121, 11647, 89513, 85589, 42061 ####[facility] MCH 33.3 pg High 24.0-32.0 [facility] Comment on above: Order Comment: << On admission If not done in ED>>No: Do not add to previous draw Performed By: #### 0 0121, 53747, 81051, 29387, 43423 ####[facility] MCHC mass conc (RBC) 33.2 g/dL Normal 32.0-36.0 [facility] Comment on above: Order Comment: << On admission If not done in ED>>No: Do not add to previous draw Performed By: #### 0 0121, 15823, 63516, 53578, 41183 ####[facility]3000 [facility].[address] MCV 100.4 fL High 80.0-100.0 [facility] Comment on above: Order Comment: << On admission If not done in ED>>No: Do not add to previous draw Performed By: #### 0 0121, 52458, 09089, 82175, 89777 ####[facility]3000 [facility].[address] PLAT CNT 145 Thou/mm3 Normal 100-400 [facility] Comment on above: Order Comment: << On admission If not done in ED>>No: Do not add to previous draw Performed By: #### 0 0121, 74374, 99916, 86166, 45528 ####[facility]3000 [facility].[address] WBC (Leukocytes) 23.1 Thou/mm3 High 4.0-10.0 [facility] Comment on above: Order Comment: << On admission If not done in ED>>No: Do not add to previous draw Performed By: #### 0 0121, 78591, 03606, 29884, 02180 ####[facility] CHEST W CONTRASTon 2016 CT CHEST W CONTRAST [facility] [address] [place] [address] Patient Name: TORSTEN HAYWOOD : 1955Sex: MAge: Race: WhiteMRN: [id number]. Location: [id number] Status: IVisit #: [id number] Date: 12/22/2016 9:55:00 AMCompleted Date: 12/22/2016 11:58 AMRequesting Provider: ALESHA KAUR Attending Provider: TORSTEN YEPEZ Report Copy To: Signs & Symptoms: Fluid CollectionHistory: Patient history not availableComments: R/O InfiltratesExam: CT CHEST W CONTRASTAccession #: [id number] SIGNS AND SYMPTOMS: Fluid Collection Mid chest pain with SOB s/p recent CABG. H/O pleural effusion. QUESTION FOR RADIOLOGIST: R/O Infiltrates TECHNIQUE: CT chest with intravenous contrast. Low-dose acquisition and reconstruction algorithms were utilized. Contrast: Contrast: OMNIPAQUE 350 (LOCM), 100 milliliter, Intravenous COMPARISON: No relevant prior studies available. FINDINGS: The visualized portions of the thyroid gland are unremarkable. Thoracic inlet is within normal limits. There are no enlarged supraclavicular, axillary or mediastinal lymph nodes. There are mediastinal drains present with no fluid collection. The heart is enlarged. There are postsurgical changes from coronary artery bypass grafting. Extensive coronary artery calcifications are noted. The trachea and bronchi are unremarkable. There is bibasilar atelectasis with small pleural effusions, left greater than right. Given the suboptimal degree of contrast opacification there is no central pulmonary embolism identified. Sternotomy wires are intact. There are no aggressive osseous lesions or acute fractures. The esophagus is unremarkable. Images of the upper abdomen including cholecystectomy clips. IMPRESSION: 1. Expected postsurgical changes following coronary artery bypass grafting with mediastinal drains in place and no mediastinal fluid collections identified. 2. Bibasilar atelectasis and small pleural effusions, left greater than right. Electronically signed by:Gopi Moraes M.D.. Transcribed by: [email or web address], User Resident: Electronically Signed by: GOPI MORAES @ 12/22/2016 12:29 PM Normal [facility] Comment on above: Order Comment: << On admission If not done in ED>>No: Do not add to previous draw MAGNESIUM BLOODon 12-22-2016 Magnesium 1.9 mg/dL Normal 1.9-2.7 [facility] Comment on above: Order Comment: << On admission If not done in ED>>No: Do not add to previous draw Performed By: #### 0 0121, 12373, 45736, 28358, 29923 ####[facility] [place] [address], [facility] POC GLUCOSE LABon 12-22-2016 Glucose mass conc 169 mg/dL High 70-100 [facility] Comment on above: Performed By: #### 0 0121, 31329, 51334, 37032, 74503 ####[facility] [place] [address], [facility] Glucose mass conc 123 mg/dL High 70-100 [facility] Comment on above: Performed By: #### 0 0121, 69465, 11484, 51758, 53160 ####[facility] [facility] [place] [place] [address], [facility] PORTABLE CHEST 1 VIEWon 11-29 PORTABLE CHEST 1 VIEW [facility] [address] [place] [address] Patient Name: TORSTEN HAYWOOD : 1955Sex: MAge: Race: WhiteMRN: [id number]. Location: [id number] Status: IVisit #: [id number] Date: 12/22/2016 5:00:00 AMCompleted Date: 12/22/2016 08:33 AMRequesting Provider: GIOVANY FARIAS Attending Provider: TORSTEN YEPEZ Report Copy To: Signs & Symptoms: O2 DesaturationHistory: Patient history not availableComments: R/O EffusionExam: PORTABLE CHEST 1 VIEWAccession #: [id number] PORTABLE CHEST 1 VIEW 12/22/2016 8:33 AM EDT SIGNS AND SYMPTOMS: O2 Desaturation TECHNOLOGIST COMMENTS: shortness of breath QUESTION FOR THE RADIOLOGIST: R/O Effusion PROTOCOL: AP(PA) view was obtained. COMPARISON: December 20 FINDINGS: The heart is enlarged. This is accentuated by AP technique and poor inspiration. Sternal wires are intact. The right lung is clear. Retrocardiac and lingular infiltrate cannot be excluded. There may be a small left effusion as well. Lateral view would be helpful for further assessment. IMPRESSION: Lingular airspace disease. Small left effusion with cardiomegaly consistent with CHF. Findings are consistent with CHF and pneumonia. Electronically signed by:Rayshawn Hall. Transcribed by: [email or web address], User Resident: Electronically Signed by: RAYSHAWN HALL @ 12/22/2016 02:58 PM Normal [facility] Comment on above: Order Comment: << On admission If not done in ED>>No: Do not add to previous draw PROTHROMBIN TIMEon INR Coag RelTime (PPP) 1.25 {INR} High 0.91-1.16 [facility] Comment on above: Order Comment: << On admission If not done in ED>>No: Do not add to previous draw Result Comment: ACCC P RECOMMENDED INR FOR WARFARIN THERAPY CONDITION INRPROPHYLAXIS OF VENOUS THROMBOSIS 2-3(HIGH-RISK SURGERY)TREATMENT OF VENOUS THROMBOSIS 2-3TREATMENT OF PULMONARY EMBOLISM 2-3PREVENTION OF SYSTEMIC EMBOLISM: 2-3 ACUTE MYOCARDIAL INFARCTION TISSUE HEART VALVES VALVULAR HEART DISEASE ATRIAL FIBRILLATION RECURRENT SYSTEMIC EMBOLISMMECHANICAL HEART VALVE 2.5-3.5 FROM: ORAL ANTICOAGULANTS. MECHANISM OF ACTION, CLINICALEFFECTIVENESS, AND OPTIMAL THERAPEUTIC RANGE. [id number]. Performed By: #### 0 0121, 93396, 36320, 22699, 54316 ####[facility] [facility].[address] Prothrombin time (PT) Coag time (PPP) 15.8 s High 12.3-14.8 [facility] Comment on above: Order Comment: << On admission If not done in ED>>No: Do not add to previous draw Result Comment: ALL RESULTS MUST BE INTERPRETED WITH RESPECT TO BLOOD DRAWING ARTIFACTOR DILUTION ERROR OF ANTICOAGULANT AT THE TIME OF SAMPLING. Performed By: #### 0 0121, 18626, 13271, 33998, 78220 ####[facility] [facility] [place] [address], [facility] TYPE AND SCREENon 12-22-2016 ABO INTERPRETATION B Normal [facility] Comment on above: Performed By: #### 0 0121, 91240, 22208, 77107, 36473 ####[facility] [facility] [place] [address], [facility] ANTIBODY SCREEN Negative Normal [facility] Comment on above: Performed By: #### 0 0121, 26935, 42183, 44243, 56262 ####[facility] [facility] [place] [address], [facility] RH INTERPRETATION Positive Normal [facility] Comment on above: Performed By: #### 0 0121, 49887, 16122, 26921, 03811 ####[facility] UFH HEPARIN ASSAYon 12-23-19 17 UNFRACTIONATED HEPARIN 0.21 IU/mL Low 0.30-0.70 [facility] Comment on above: Result Comment: Lena roxaban and Apixaban will interfere with the anti Xa assay used tomonitor UFH and LMWH. Performed By: #### 0 0121, 87342, 10823, 68166, 94676 ####[facility] UNFRACTIONATED HEPARIN <0.10 Critically low 0.30-0.70 [facility] Comment on above: Result Comment: Lena roxaban and Apixaban will interfere with the anti Xa assay used tomonitor UFH and LMWH.RESULTS CHECKED AND CALLED. ACCURATELY READ BACK BY JESSICA LEE RN AT09:15 Performed By: #### 0 0121, 58234, 05316, 75806, 66305 ####[facility] Result Comment: Lena roxaban and Apixaban will interfere with the anti Xa assay used tomonitor UFH and LMWH.RESULTS CHECKED AND CALLED. ACCURATELY READ BACK BY DWIGHT KIMT 0151 APC RESISTANCE ASSAYon 12-21 APC RESISTANCE 1.6 RATIO Low 2.0-4.9 [facility] Comment on above: Order Comment: << On admission If not done in ED>>No: Do not add to previous draw Result Comment: DUE TO THE LOW APC RESISTANCE RESULT, A FACTOR V LEIDEN GENE MUTATIONTEST IS SUGGESTED ON THIS PATIENT. Performed By: #### 0 0121, 33958, 28368, 26279, 79596 ####[facility] ARTERIAL BLOOD GAS W/COOXon 12-21-2016 BASE EXCESS 4 mmol/L High -2-2 [facility] Comment on above: Performed By: #### 5 0103 ####[facility] [place] [address], [facility] Bicarbonate (HCO3) 29 mmol/L High 23-27 [facility] Comment on above: Performed By: #### 5 3 ####[facility] [place] [address], [facility] CO2 44 mmHg Normal 35-45 [facility] Comment on above: Performed By: #### 3 ####[facility] [place] [address], [facility] COHB 1 % Normal 0-1 [facility] Comment on above: Performed By: #### 3 ####[facility] [place] [address], [facility] [employer] HFNC Normal [facility] Comment on above: Performed By: #### 3 ####[facility] [place] [address], [facility] FIO2 100 % Normal 21-100 [facility] Comment on above: Performed By: #### 5 3 ####[facility] [place] [address], [facility] LPM 40.0 LPM High 0.5-20.0 [facility] Comment on above: Performed By: #### 5 3 ####[facility] [place] [address], [place] METHB 1.1 % Normal 0.0-1.5 [facility] Comment on above: Performed By: #### 3 ####[facility] [place] [address], [place] O2 saturation 95.2 % Normal 94.0-97.0 [facility] Comment on above: Performed By: #### 3 ####[facility] [place] [address], [facility] Oxygen in arterial blood 108 mm[Hg] Critically high 75-100 [facility] Comment on above: Performed By: #### 5 0103 ####[facility] [place] [address], [facility] pH of blood 7.43 [pH] Normal 7.35-7.45 [facility] Comment on above: Performed By: #### 5 3 ####[facility] [place] [address], [facility] THB 10.6 g/dL Low 13.9-16.3 [facility] Comment on above: Performed By: #### 102 ####[facility] [place] [address], [facility] BASE EXCESS 5 mmol/L High -2-2 [facility] Comment on above: Performed By: #### 102 ####[facility] [place] [address], [facility] Bicarbonate (HCO3) 29 mmol/L High 23-27 [facility] Comment on above: Performed By: #### 102 ####[facility] [place] [address], [facility] CO2 43 mmHg Normal 35-45 [facility] Comment on above: Performed By: #### 3 ####[facility] [place] [address], [place] COHB 2 % High 0-1 [facility] Comment on above: Performed By: #### 3 ####[facility] [place] [address], [facility] [employer] HFNC Normal [facility] Comment on above: Performed By: #### 5 3 ####[facility] [place] [address], [facility] FIO2 100 % Normal 21-100 [facility] Comment on above: Performed By: #### 5 0103 ####[facility] [place] [address], [facility] LPM 40.0 LPM High 0.5-20.0 [facility] Comment on above: Performed By: #### 5 0103 ####[facility] [place] [address], [facility] METHB 1.0 % Normal 0.0-1.5 [facility] Comment on above: Performed By: #### 5 3 ####[facility] [place] [address], [facility] O2 saturation 91.3 % Low 94.0-97.0 [facility] Comment on above: Performed By: #### 5 0103 ####[facility] [place] [address], [facility] Oxygen in arterial blood 61 mm[Hg] Low 75-100 [facility] Comment on above: Performed By: #### 5 3 ####[facility] [place] [address], [facility] pH of blood 7.44 [pH] Normal 7.35-7.45 [facility] Comment on above: Performed By: #### 5 0103 ####[facility] [place] [address], [facility] THB 10.3 g/dL Low 13.9-16.3 [facility] Comment on above: Performed By: #### 5 3 ####[facility] [place] [address], [facility] ARTERIAL BLOOD GAS WITH ICAo n 12-21-2016 BASE EXCESS 6 mmol/L High -2-2 [facility] Comment on above: Performed By: #### 0 0121, 37696, 03582, 64490, 25341 ####[facility] Bicarbonate (HCO3) 31 mmol/L Critically high 23-27 T [facility] Comment on above: Performed By: #### 0 0121, 36765, 26500, 44806, 47699 ####[facility] CO2 46 mmHg High 35-45 [facility] Comment on above: Performed By: #### 0 0121, 00691, 20307, 68510, 37143 ####[facility] [facility] DELIVERY SYSTEMS HFNC Normal [facility] Comment on above: Performed By: #### 0 0121, 25708, 55922, 32655, 93576 ####[facility] [facility] FIO2 90 % Normal 21-100 [facility] Comment on above: Result Comment: Resu lt changed by ROBERT on 12/21/2016 21:58. The previous value was80. Performed By: #### 0 0121, 53441, 21204, 89089, 99466 ####[facility] IONIZED CALCIUM 1.09 mmol/L Low 1.13-1.32 [facility] Comment on above: Performed By: #### 0 0121, 54709, 67300, 57944, 48342 ####[facility] LPM 40.0 LPM High 0.5-20.0 [facility] Comment on above: Performed By: #### 0 0121, 98993, 51150, 01968, 03512 ####[facility] [place] [address], [facility] O2 saturation 96.3 % Normal 94.0-97.0 [facility] Comment on above: Performed By: #### 0 0121, 79747, 77808, 17894, 88057 ####[facility] [place] [address], [facility] Oxygen in arterial blood 86 mm[Hg] Normal 75-100 [facility] Comment on above: Performed By: #### 0 0121, 04365, 51119, 94915, 30251 ####[facility] [place] [address], [facility] pH of blood 7.43 [pH] Normal 7.35-7.45 [facility] Comment on above: Performed By: #### 0 0121, 06088, 45927, 77540, 48741 ####[facility] [place] [address], [facility] BASE EXCESS 6 mmol/L High -2-2 [facility] Comment on above: Performed By: #### 5 0103 ####[place] [address] [place] [address], [facility] Bicarbonate (HCO3) 30 mmol/L High 23-27 [facility] Comment on above: Performed By: #### 5 0103 ####[facility] [place] [address], [facility] CO2 42 mmHg Normal 35-45 [facility] Comment on above: Performed By: #### 5 0103 ####[facility] [place] [address], [facility] [employer] HFNC Normal [facility] Comment on above: Performed By: #### 5 0103 ####[facility] [place] [address], [place] FIO2 100 % Normal 21-100 [facility] Comment on above: Performed By: #### 5 0103 ####[facility] [place] [address], [facility] IONIZED CALCIUM 1.17 mmol/L Normal 1.13-1.32 [facility] Comment on above: Performed By: #### 5 0103 ####[facility] [place] [address], [facility] LPM 40.0 LPM High 0.5-20.0 [facility] Comment on above: Performed By: #### 5 0103 ####[facility] [place] [address], [facility] O2 saturation 93.4 % Low 94.0-97.0 [facility] Comment on above: Performed By: #### 5 3 ####[facility], [place] [address] [place] [address] Oxygen in arterial blood 67 mm[Hg] Low 75-100 [facility] Comment on above: Performed By: #### 5 3 ####[facility] [place] [address], [facility] pH of blood 7.46 [pH] High 7.35-7.45 [facility] Comment on above: Performed By: #### 5 102 ####[facility] [place] [address], [facility] BASE EXCESS 6 mmol/L High -2-2 [facility] Comment on above: Performed By: #### 7 206 ####[facility] [place] [address], [facility] Bicarbonate (HCO3) 30 mmol/L High 23-27 [facility] Comment on above: Performed By: #### 7 7 ####[facility] [place] [address], [facility] CO2 40 mmHg Normal 35-45 [facility] Comment on above: Performed By: #### 7 0207 ####[facility] [place] [address], [facility] [employer] HFNC Normal [facility] Comment on above: Performed By: #### 7 0207 ####[facility] [place] [address], [facility] FIO2 100 % Normal 21-100 [facility] Comment on above: Performed By: #### 7 0207 ####[facility] [place] [address], [facility] IONIZED CALCIUM 1.16 mmol/L Normal 1.13-1.32 [facility] Comment on above: Performed By: #### 7 7 ####[facility] [place] [address], [facility] LPM 40.0 LPM High 0.5-20.0 [facility] Comment on above: Performed By: #### 7 7 ####[facility] [place] [address], [facility] O2 saturation 91.8 % Low 94.0-97.0 [facility] Comment on above: Performed By: #### 7 7 ####[facility] [place] [address], [facility] Oxygen in arterial blood 56 mm[Hg] Low 75-100 [facility] Comment on above: Performed By: #### 7 7 ####[facility] [place] [address], [facility] pH of blood 7.48 [pH] High 7.35-7.45 [facility] Comment on above: Performed By: #### 7 7 ####[facility] [place] [address], [place] BASIC METABOLIC PANELon 09-2 Calcium 8.2 mg/dL Low 8.6-10.3 [facility] Comment on above: Order Comment: << On admission If not done in ED>>No: Do not add to previous draw Performed By: #### 0 0121, 34226, 63146, 79250, 61599 ####[facility] [place] [address], [facility] Chloride 100 mmol/L Normal 98-107 [facility] Comment on above: Order Comment: << On admission If not done in ED>>No: Do not add to previous draw Performed By: #### 0 0121, 39089, 07137, 52690, 82415 ####[facility] [place] [address], [facility] CO2 26 mmol/L Normal 21-31 [facility] Comment on above: Order Comment: << On admission If not done in ED>>No: Do not add to previous draw Performed By: #### 0 0121, 68942, 77870, 97098, 43264 ####[facility] Creatinine 0.80 mg/dL Normal 0.70-1.30 [facility] Comment on above: Order Comment: << On admission If not done in ED>>No: Do not add to previous draw Performed By: #### 0 0121, 31510, 05511, 47623, 30325 ####[facility] eGFR (black) mL/min/{1.73_m2} Normal >60 [facility] Comment on above: Order Comment: << On admission If not done in ED>>No: Do not add to previous draw Performed By: #### 0 0121, 89646, 13849, 01923, 03105 ####[facility] Order Comment: No: D o not add to previous draw Performed By: #### 5 0103 ####[facility] [place] [address], [facility] eGFR (non-black) mL/min/{1.73_m2} Normal >60 Th [facility] Comment on above: Order Comment: << On admission If not done in ED>>No: Do not add to previous draw Performed By: #### 0 0121, 68534, 68395, 56480, 95135 ####[facility], [place] [address] [place] [address] Order Comment: No: D o not add to previous draw Performed By: #### 5 0103 ####[facility] [place] [address], [facility] Glucose mass conc 141 mg/dL High 70-100 [facility] Comment on above: Order Comment: << On admission If not done in ED>>No: Do not add to previous draw Performed By: #### 0 0121, 15718, 64045, 18677, 51023 ####[facility] [place] [address], [facility] Potassium molar conc 4.3 mmol/L Normal 3.5-5.1 [facility] Comment on above: Order Comment: << On admission If not done in ED>>No: Do not add to previous draw Performed By: #### 0 0121, 66189, 18973, 28416, 82786 ####[facility] [place] [address], [facility] Sodium 133 mmol/L Low 136-145 [facility] Comment on above: Order Comment: << On admission If not done in ED>>No: Do not add to previous draw Performed By: #### 0 0121, 36111, 41114, 29694, 01942 ####[facility] [place] [address], [facility] Urea nitrogen 24 mg/dL Normal 7-25 [facility] Comment on above: Order Comment: << On admission If not done in ED>>No: Do not add to previous draw Performed By: #### 0 0121, 23775, 73567, 04639, 25885 ####[facility] [place] [address], [facility] Order Comment: No: D o not add to previous draw Performed By: #### 5 0103 ####[facility] [place] [address], [facility] Calcium 8.1 mg/dL Low 8.6-10.3 [facility] Comment on above: Order Comment: No: D o not add to previous draw Performed By: #### 5 0103 ####[facility] [place] [address], [facility] Chloride 103 mmol/L Normal 98-107 [facility] Comment on above: Order Comment: No: D o not add to previous draw Performed By: #### 5 0103 ####[facility] [place] [address], [facility] CO2 28 mmol/L Normal 21-31 [facility] Comment on above: Order Comment: No: D o not add to previous draw Performed By: #### 5 3 ####[facility] [place] [address], [facility] Creatinine 0.82 mg/dL Normal 0.70-1.30 [facility] Comment on above: Order Comment: No: D o not add to previous draw Performed By: #### 5 0103 ####[facility] [place] [address], [place] Glucose mass conc 109 mg/dL High 70-100 [facility] Comment on above: Order Comment: No: D o not add to previous draw Performed By: #### 5 3 ####[facility] [place] [address], [place] Potassium molar conc 4.2 mmol/L Normal 3.5-5.1 [facility] Comment on above: Order Comment: No: D o not add to previous draw Performed By: #### 5 0103 ####[facility] Sodium 136 mmol/L Normal 136-145 [facility] Comment on above: Order Comment: No: D o not add to previous draw Performed By: #### 5 0103 ####[facility] CBC COMPLETE BLOOD COUNTon 12-21-2016 Erythrocyte distribution width Auto Ratio (RBC) 14.0 % Normal 11.5-16.9 [facility] Comment on above: Order Comment: No: D o not add to previous draw Performed By: #### 5 3 ####[facility] [facility].[address] Erythrocytes (RBC) 3.05 mill/mm3 Low 4.30-5.90 [facility] Comment on above: Order Comment: No: D o not add to previous draw Performed By: #### 5 0103 ####[facility] [facility].[address] Hematocrit (HCT) 30.6 % Low 39.0-55.0 [facility] Comment on above: Order Comment: No: D o not add to previous draw Performed By: #### 5 0103 ####[facility] [facility].[address] Hemoglobin mass conc (Bld) 10.1 g/dL Low 13.9-16.3 [facility] Comment on above: Order Comment: No: D o not add to previous draw Performed By: #### 5 3 ####[facility] MCH 33.0 pg High 24.0-32.0 [facility] Comment on above: Order Comment: No: D o not add to previous draw Performed By: #### 5 0103 ####[facility] MCHC mass conc (RBC) 32.9 g/dL Normal 32.0-36.0 [facility] Comment on above: Order Comment: No: D o not add to previous draw Performed By: #### 5 0103 ####[facility] MCV 100.4 fL High 80.0-100.0 [facility] Comment on above: Order Comment: No: D o not add to previous draw Performed By: #### 5 0103 ####[facility] PLAT CNT 125 Thou/mm3 Normal 100-400 [facility] Comment on above: Order Comment: No: D o not add to previous draw Performed By: #### 5 0103 ####[facility] WBC (Leukocytes) 24.2 Thou/mm3 High 4.0-10.0 [facility] Comment on above: Order Comment: No: D o not add to previous draw Performed By: #### 5 0103 ####[facility] [facility] FACTOR V LEIDENon 12-21-2016 FACTOR V LEIDEN HETEROZYGOUS FOR FAC TOR V LEIDEN MUTATION Critically abnormal NEGATIVE FOR FACTOR V LEIDEN MUTATION [facility] Comment on above: Order Comment: << On admission If not done in ED>>No: Do not add to previous draw Result Comment: INTE RPRETATION: This patient is heterozygous for the Factor V Leidenmutation (carries one Factor V allele containing the 1691G>A (p.R506Q)mutation and one Factor V allele that is normal) which is associatedwith a 4-8X increased risk for venous thrombosis.COMMENT: The patient may have other genetic and/or non-genetic factorsthat may further increase this risk. Additional molecular testing isavailable in our laboratory for other genetic risk factors including theprothrombin 37632Z>A mutation and 5, 10 methylenetetrahydrofolatereductase (MTHFR) mutation (c.677C>T; p.A222V). Genetic counseling isrecommended to discuss the implications of this test result. Inaddition, the study of other at-risk family members is recommended.Please contact the [facility] at [phone].METHODOLOGY: Genotyping of the mutation is determined by [employer]. This test detects the targeted sequence single nucleotidepolymorphism after genomic DNA is extracted from whole blood. [employer] utilizes a single-tube, two phase reaction, includingtarget amplification and signal generation, mediated by [employer]. The fluorescence is then read by a fluorometer and thegenotype is determined by analysis of signal generated from the wildtype and mutant probes.This test has been approved by the FDA and has been verified for use bythe Molecular Diagnostics Department at the [facility].REFERENCES: 1) Elroy PM, et al. N Engl J Med. 1994 6;332(14):912-7.2) Celei P, et al. Semin Thromb Hemost. 2006 Dec;32(7):700-8. 3) Odin Hager NM, et al. Am. J. Hum. Neida. 62: 1034-8756, 1997. 4) Ogino S,et al. J. Hum. Neida. 48: 1-7, 2002. 5) Lorenzo IS, et al.Atherosclerosis 156(2):409, 2000. Performed By: #### 0 0121, 63630, 47353, 02004, 73977 ####[facility] [place] [address], [facility] SIGNED BY: Tenant Relations Coordinator, Department of Pathology Normal [facility] Comment on above: Order Comment: << On admission If not done in ED>>No: Do not add to previous draw Performed By: #### 0 0121, 37437, 60179, 83679, 59634 ####[facility] [place] [address], [facility] MAGNESIUM BLOODon 12-21-2016 Magnesium 2.0 mg/dL Normal 1.9-2.7 [facility] Comment on above: Order Comment: No: D o not add to previous draw Performed By: #### 5 0103 ####[facility] [place] [address], [facility] POC GLUCOSE LABon 12-21-2016 Glucose mass conc 160 mg/dL High 70-100 [facility] Comment on above: Performed By: #### 0 0121, 51499, 38979, 05948, 15136 ####[facility] [place] [address], [facility] Glucose mass conc 147 mg/dL High 70-100 [facility] Comment on above: Performed By: #### 5 0103 ####[facility] [place] [address], [facility] Glucose mass conc 159 mg/dL High 70-100 [facility] Comment on above: Performed By: #### 5 0103 ####[facility] [place] [address], [facility] Glucose mass conc 94 mg/dL Normal 70-100 [facility] Comment on above: Performed By: #### 5 0103 ####[facility] [place] [address], [place] Glucose mass conc 117 mg/dL High 70-100 [facility] Comment on above: Performed By: #### 5 0103 ####[facility] [place] [address], [place] Glucose mass conc 124 mg/dL High 70-100 [facility] Comment on above: Performed By: #### 7 0207 ####[facility] [place] [address], [place] UFH HEPARIN ASSAYon 12-22-19 17 UNFRACTIONATED HEPARIN <0.10 Critically low 0.30-0.70 [facility] Comment on above: Result Comment: Winnie roxaban and Apixaban will interfere with the anti Xa assay used tomonitor UFH and LMWH.RESULTS CHECKED AND CALLED. ACCURATELY READ BACK BY JESSICA LEE RN [id number] Performed By: #### 0 0121, 37835, 41306, 36906, 03152 ####[facility] [facility].[address] ARTERIAL BLOOD GAS WITH ICAo n 12-20-2016 BASE EXCESS 4 mmol/L High -2-2 [facility] Comment on above: Order Comment: RESUL TS CHECKED AND CALLED. ACCURATELY READ BACK BY JOSUÉ YUSUF Performed By: #### 7 0207 ####[facility] [facility].[address] Bicarbonate (HCO3) 28 mmol/L High 23-27 [facility] Comment on above: Order Comment: RESUL TS CHECKED AND CALLED. ACCURATELY READ BACK BY JOSUÉ YUSUF Performed By: #### 7 0207 ####[facility] CO2 40 mmHg Normal 35-45 [facility] Comment on above: Order Comment: RESUL TS CHECKED AND CALLED. ACCURATELY READ BACK BY JOSUÉ YUSUF Performed By: #### 7 0207 ####[facility] [facility].[address] DELIVERY SYSTEMS CAM Normal [facility] Comment on above: Order Comment: RESUL TS CHECKED AND CALLED. ACCURATELY READ BACK BY JOSUÉ YUSUF Performed By: #### 7 0207 ####[facility] [facility].[address] FIO2 98 % Normal 21-100 [facility] Comment on above: Order Comment: RESUL TS CHECKED AND CALLED. ACCURATELY READ BACK BY JOSUÉ YUSUF Performed By: #### 7 0207 ####[facility] [facility] [place] [address], [facility] IONIZED CALCIUM 1.16 mmol/L Normal 1.13-1.32 [facility] Comment on above: Order Comment: RESUL TS CHECKED AND CALLED. ACCURATELY READ BACK BY JOSUÉ YUSUF Performed By: #### 7 0207 ####[facility] [facility] [place] [address], [facility] LPM 10.0 LPM Normal 0.5-20.0 [facility] Comment on above: Order Comment: RESUL TS CHECKED AND CALLED. ACCURATELY READ BACK BY JOSUÉ YUSUF Performed By: #### 7 0207 ####[place] [address] [facility].[address] O2 saturation 89.1 % Low 94.0-97.0 [facility] Comment on above: Order Comment: RESUL TS CHECKED AND CALLED. ACCURATELY READ BACK BY JOSUÉ YUSUF Performed By: #### 7 0207 ####[facility] [facility].[address] Oxygen in arterial blood 50 mm[Hg] Critically low 75-100 [facility] Comment on above: Order Comment: RESUL TS CHECKED AND CALLED. ACCURATELY READ BACK BY JOSUÉ YUSUF Performed By: #### 7 0207 ####[address] pH of blood 7.45 [pH] Normal 7.35-7.45 [facility] Comment on above: Order Comment: RESUL TS CHECKED AND CALLED. ACCURATELY READ BACK BY JOSUÉ YUSUF Performed By: #### 7 0207 ####[facility] [facility] [place] [address], [facility] BASE EXCESS 5 mmol/L High -2-2 [facility] Comment on above: Order Comment: RESUL TS CHECKED AND CALLED. ACCURATELY READ BACK BY JOSUÉ YUSUF Performed By: #### 7 0207 ####[facility] [facility].[address] Bicarbonate (HCO3) 28 mmol/L High 23-27 [facility] Comment on above: Order Comment: RESUL TS CHECKED AND CALLED. ACCURATELY READ BACK BY JOSUÉ YUSUF Performed By: #### 7 0207 ####[facility] [facility].[address] CO2 39 mmHg Normal 35-45 [facility] Comment on above: Order Comment: RESUL TS CHECKED AND CALLED. ACCURATELY READ BACK BY JOSUÉ RN Performed By: #### 7 0207 ####[facility] DELIVERY SYSTEMS COOL AEROSOL MASK Normal T [facility] Comment on above: Order Comment: RESUL TS CHECKED AND CALLED. ACCURATELY READ BACK BY JOSUÉ YUSUF Performed By: #### 7 0207 ####[facility] [facility].[address] FIO2 98 % Normal 21-100 [facility] Comment on above: Order Comment: RESUL TS CHECKED AND CALLED. ACCURATELY READ BACK BY JOSUÉ YUSUF Performed By: #### 7 0207 ####[facility] IONIZED CALCIUM 1.17 mmol/L Normal 1.13-1.32 [facility] Comment on above: Order Comment: RESUL TS CHECKED AND CALLED. ACCURATELY READ BACK BY JOSUÉ YUSUF Performed By: #### 7 0207 ####[facility] [facility] [place] [address], [facility] LPM 10.0 LPM Normal 0.5-20.0 [facility] Comment on above: Order Comment: RESUL TS CHECKED AND CALLED. ACCURATELY READ BACK BY JOSUÉ YUSUF Performed By: #### 7 0207 ####[facility] [facility].[address] O2 saturation 89.1 % Low 94.0-97.0 [facility] Comment on above: Order Comment: RESUL TS CHECKED AND CALLED. ACCURATELY READ BACK BY JOSUÉ YUSUF Performed By: #### 7 0207 ####[facility] [place] [address], [facility] Oxygen in arterial blood 50 mm[Hg] Critically low 75-100 [facility] Comment on above: Order Comment: RESUL TS CHECKED AND CALLED. ACCURATELY READ BACK BY JOSUÉ YUSUF Performed By: #### 7 0207 ####[facility] [place] [address], [facility] pH of blood 7.47 [pH] High 7.35-7.45 [facility] Comment on above: Order Comment: RESUL TS CHECKED AND CALLED. ACCURATELY READ BACK BY JOSUÉ YUSUF Performed By: #### 7 0207 ####[facility] [place] [address], [facility] BASE EXCESS 1 mmol/L Normal -2-2 [facility] Comment on above: Order Comment: R/O C HF Performed By: #### 8 4511 ####[facility] [place] [address], [facility] Bicarbonate (HCO3) 26 mmol/L Normal 23-27 [facility] Comment on above: Order Comment: R/O C HF Performed By: #### 8 4511 ####[facility] [place] [address], [facility] CO2 40 mmHg Normal 35-45 [facility] Comment on above: Order Comment: R/O C HF Performed By: #### 8 4511 ####[facility] [place] [address], [facility] DELIVERY SYSTEMS NC Normal [facility] Comment on above: Order Comment: R/O C HF Performed By: #### 8 4511 ####[facility] [place] [address], [facility] IONIZED CALCIUM 1.24 mmol/L Normal 1.13-1.32 [facility] Comment on above: Order Comment: R/O C HF Performed By: #### 8 4511 ####[facility] [place] [address], [facility] LPM 6.0 LPM Normal 0.5-20.0 [facility] Comment on above: Order Comment: R/O C HF Performed By: #### 8 4511 ####[facility] [place] [address], [facility] O2 saturation 88.9 % Low 94.0-97.0 [facility] Comment on above: Order Comment: R/O C HF Performed By: #### 8 4511 ####[facility] [place] [address], [facility] Oxygen in arterial blood 54 mm[Hg] Critically low 75-100 [facility] Comment on above: Order Comment: R/O C HF Performed By: #### 8 4511 ####[facility] [place] [address], [facility] pH of blood 7.42 [pH] Normal 7.35-7.45 [facility] Comment on above: Order Comment: R/O C HF Performed By: #### 8 4511 ####[facility], [place] [address] [place] [address] BASIC METABOLIC PANELon 09-2 Calcium 8.1 mg/dL Low 8.6-10.3 [facility] Comment on above: Order Comment: R/O C HF Performed By: #### 1 0070, 53898, 85935 ####[facility] [place] [address], [facility] Chloride 107 mmol/L Normal 98-107 [facility] Comment on above: Order Comment: R/O C HF Performed By: #### 1 0070, 21807, 77982 ####[facility] [place] [address], [facility] CO2 25 mmol/L Normal 21-31 [facility] Comment on above: Order Comment: R/O C HF Performed By: #### 1 0, 36947, 59876 ####[facility] [place] [address], [facility] Creatinine 0.84 mg/dL Normal 0.70-1.30 [facility] Comment on above: Order Comment: R/O C HF Performed By: #### 1 0, 48393, 08949 ####[facility] eGFR (black) mL/min/{1.73_m2} Normal >60 [facility] Comment on above: Order Comment: R/O C HF Performed By: #### 1 0, 56231, 52367 ####[facility] eGFR (non-black) mL/min/{1.73_m2} Normal >60 Th e [facility] Comment on above: Order Comment: R/O C HF Performed By: #### 1 0, 23876, 71636 ####[facility] [place] [address], [facility] Glucose mass conc 121 mg/dL High 70-100 [facility] Comment on above: Order Comment: R/O C HF Performed By: #### 1 0, 74143, 44508 ####[facility] [place] [address], [facility] Potassium molar conc 4.3 mmol/L Normal 3.5-5.1 [facility] Comment on above: Order Comment: R/O C HF Performed By: #### 1 0, 43990, 87037 ####[facility] [place] [address], [facility] Sodium 139 mmol/L Normal 136-145 [facility] Comment on above: Order Comment: R/O C HF Performed By: #### 1 0070, 23323, 96128 ####[facility] Urea nitrogen 24 mg/dL Normal 7-25 [facility] Comment on above: Order Comment: R/O C HF Performed By: #### 1 0070, 15129, 47801 ####[facility] [facility].[address] CBC COMPLETE BLOOD COUNTon 0 - Erythrocyte distribution width Auto Ratio (RBC) 13.8 % Normal 11.5-16.9 [facility] Comment on above: Order Comment: R/O C HF Performed By: #### 5 0608 ####[place] [address] [address] Erythrocytes (RBC) 3.49 mill/mm3 Low 4.30-5.90 [facility] Comment on above: Order Comment: R/O C HF Performed By: #### 5 0608 ####[place] [address] Hematocrit (HCT) 35.2 % Low 39.0-55.0 [facility] Comment on above: Order Comment: R/O C HF Performed By: #### 5 0608 ####[facility] [facility].[address] Hemoglobin mass conc (Bld) 11.7 g/dL Low 13.9-16.3 [facility] Comment on above: Order Comment: R/O C HF Performed By: #### 5 0608 ####[facility] MCH 33.4 pg High 24.0-32.0 [facility] Comment on above: Order Comment: R/O C HF Performed By: #### 5 0608 ####[facility] [facility] MCHC mass conc (RBC) 33.1 g/dL Normal 32.0-36.0 [facility] Comment on above: Order Comment: R/O C HF Performed By: #### 5 0608 ####[facility]3000 [facility].[address] MCV 100.7 fL High 80.0-100.0 [facility] Comment on above: Order Comment: R/O C HF Performed By: #### 5 0608 ####[facility] [facility].[address] PLAT CNT 121 Thou/mm3 Normal 100-400 [facility] Comment on above: Order Comment: R/O C HF Performed By: #### 5 0608 ####[facility] [facility].[address] WBC (Leukocytes) 17.2 Thou/mm3 High 4.0-10.0 [facility] Comment on above: Order Comment: R/O C HF Performed By: #### 5 0608 ####[facility]3000 [facility].[address] COOXIMETRYon 12-20-2016 COHB 2 % Normal [facility] Comment on above: Order Comment: R/O C HF Performed By: #### 7 0207 ####[facility]3000 [facility].[address] METHB 1 % Normal [facility] Comment on above: Order Comment: R/O C HF Performed By: #### 7 0207 ####[facility]3000 [facility].[address] O2 saturation 58.4 % Low 60.0-80.0 [facility] Comment on above: Order Comment: R/O C HF Performed By: #### 7 0207 ####[facility]3000 [facility].[address] THB 11.1 g/dL Low 13.9-16.3 [facility] Comment on above: Order Comment: R/O C HF Performed By: #### 7 0207 ####[facility] CPK-MB PROFILEon 12-20-2016 CKMB 6.1 ng/mL Critically high 0.0-1.9 [facility] Comment on above: Order Comment: R/O C HF Result Comment: M-CR ITICAL RESULT(S) REVIEWED, CALLED TO AND READ BACK BY DWIGHT SERRANO @ [facility] Performed By: #### 1 0070, 30388, 60528 ####[facility] CKMB 14.4 ng/mL High 0.0-5.0 [facility] Comment on above: Order Comment: R/O C HF Result Comment: IF T OTAL CK <200 U/L AND: 1. CKMB IS 5-10 NG/ML----BORDERLINE 2. CKMB IS >10 NG/ML----INDICATIVE OF AL OR IF TOTAL CK >200 U/L AND CKMB INDEX >1.9----INDICATIVE OF [place] Performed By: #### 1 0070, 94562, 73246 ####[facility] [facility].[address] Creatine kinase (CK) 237 U/L High 30-223 [facility] Comment on above: Order Comment: R/O C HF Performed By: #### 1 0070, 65308, 08360 ####[facility] [facility] [place] [address], [facility] MAGNESIUM BLOODon 12-20-2016 Magnesium 2.2 mg/dL Normal 1.9-2.7 [facility] Comment on above: Order Comment: R/O C HF Performed By: #### 1 0070, 42151, 43304 ####[facility] [place] [address], [place] POC GLUCOSE LABon 12-20-2016 Glucose mass conc 143 mg/dL High 70-100 [facility] Comment on above: Performed By: #### 7 0207 ####[facility] [place] [address], [place] Glucose mass conc 156 mg/dL High 70-100 [facility] Comment on above: Performed By: #### 7 0207 ####[facility] [place] [address], [place] Glucose mass conc 95 mg/dL Normal 70-100 [facility] Comment on above: Performed By: #### 7 0207 ####[facility] [place] [address], [place] Glucose mass conc 145 mg/dL High 70-100 [facility] Comment on above: Performed By: #### 7 0207 ####[facility] [place] [address], [place] Glucose mass conc 133 mg/dL High 70-100 [facility] Comment on above: Performed By: #### 7 0207 ####[facility] [place] [address], [place] Glucose mass conc 125 mg/dL High 70-100 [facility] Comment on above: Performed By: #### 7 0207 ####[facility] [place] [address], [place] Glucose mass conc 123 mg/dL High 70-100 [facility] Comment on above: Performed By: #### 8 5499 ####[facility] [place] [address], [place] Glucose mass conc 118 mg/dL High 70-100 [facility] Comment on above: Performed By: #### 8 5499 ####[facility] [facility] [place] [address], [facility] Glucose mass conc 116 mg/dL High 70-100 [facility] Comment on above: Performed By: #### 8 5499 ####[facility] [facility] [place] [address], [facility] Glucose mass conc 117 mg/dL High 70-100 [facility] Comment on above: Performed By: #### 4 6447 ####[facility] [facility] [place] [address], [facility] PORTABLE CHEST 1 VIEWon 11-29 PORTABLE CHEST 1 VIEW [id number] [place] [id number] Patient Name: TORSTEN HAYWOOD : 1955Sex: MAge: Race: WhiteMRN: [id number]. Location: [id number] Status: IVisit #: [id number] Date: 12/20/2016 9:00:00 PMCompleted Date: 12/20/2016 09:17 PMRequesting Provider: JOSEPH HOLLINS Attending Provider: TORSTEN YEPEZ Report Copy To: Signs & Symptoms: Acute Respiratory DistressHistory: Patient history not availableComments: R/O AtelectasisExam: PORTABLE CHEST 1 VIEWAccession #: [id number] PORTABLE CHEST 1 VIEW 12/20/2016 9:17 PM EDT SIGNS AND SYMPTOMS: Acute Respiratory Distress; increased shortness of breath; R/O Atelectasis PROTOCOL: AP(PA) view was obtained. COMPARISON: Chest radiograph December 12, 2016. FINDINGS: Lines and Tubes: Sternotomy wires are intact. Right-sided central line can be seen with the tip terminating in the mid SVC.Cardiomediastinal Silhouette: Heart is enlarged.Pulmonary Vasculature: Normal vascularity.Pleura: Left-sided pleural effusion. No pneumothorax.Pulmonary Parenchyma: No focal parenchymal opacities are seen. IMPRESSION: Increased left-sided pleural effusion with associated atelectasis. Underlying pneumonia is not excluded.Unchanged cardiomegaly. Approved by:Priyanka Tian on 12/20/2016 9:22 PM EDT. I, Rafael Yanez, have reviewed the images and report and concur with these findings. Electronically signed by:Rafael Yanez. Transcribed by: [email or web address], User Resident: PRIYANKA TIANElectronically Signed by: RAFAEL YANEZ @ 12/22/2016 03:36 AMI personally read this/these film(s) with this resident Normal [facility] Comment on above: Order Comment: << On admission If not done in ED>>No: Do not add to previous draw PROTHROMBIN TIMEon 7 INR Coag RelTime (PPP) 1.31 {INR} High 0.91-1.16 [facility] Comment on above: Order Comment: R/O C HF Result Comment: ACCC P RECOMMENDED INR FOR WARFARIN THERAPY CONDITION INRPROPHYLAXIS OF VENOUS THROMBOSIS 2-3(HIGH-RISK SURGERY)TREATMENT OF VENOUS THROMBOSIS 2-3TREATMENT OF PULMONARY EMBOLISM 2-3PREVENTION OF SYSTEMIC EMBOLISM: 2-3 ACUTE MYOCARDIAL INFARCTION TISSUE HEART VALVES VALVULAR HEART DISEASE ATRIAL FIBRILLATION RECURRENT SYSTEMIC EMBOLISMMECHANICAL HEART VALVE 2.5-3.5 FROM: ORAL ANTICOAGULANTS. MECHANISM OF ACTION, CLINICALEFFECTIVENESS, AND OPTIMAL THERAPEUTIC RANGE. [id number]. Performed By: #### 5 6101 ####[facility] [place] [address], [facility] Prothrombin time (PT) Coag time (PPP) 16.4 s High 12.3-14.8 [facility] Comment on above: Order Comment: R/O C HF Result Comment: ALL RESULTS MUST BE INTERPRETED WITH RESPECT TO BLOOD DRAWING ARTIFACTOR DILUTION ERROR OF ANTICOAGULANT AT THE TIME OF SAMPLING. Performed By: #### 5 6101 ####[facility] [place] [address], [facility] ACTIVATED CLOTTING TIMEon ACTIVATED CLOTTING TIME 121 sec Normal 82-152 [facility] Comment on above: Performed By: #### 0 0121, 89087, 73527, 86388, 12899 ####[facility] [place] [address], [facility] ACTIVATED CLOTTING TIME 571 sec High 82-152 [facility] Comment on above: Performed By: #### 0 0121, 37524, 11893, 20636, 93414 ####[facility] [place] [address], [facility] ACTIVATED CLOTTING TIME 543 sec High 82-152 [facility] Comment on above: Performed By: #### 0 0121, 84375, 80252, 27423, 63199 ####[facility] [place] [address], [facility] ACTIVATED CLOTTING TIME 549 sec High 82-152 [facility] Comment on above: Performed By: #### 0 0121, 38766, 44806, 48767, 21945 ####[facility] [place] [address], [facility] ACTIVATED CLOTTING TIME 443 sec High 82-152 [facility] Comment on above: Performed By: #### 0 0121, 28854, 15537, 93376, 85272 ####[facility] [facility] [place] [address], [facility] ACTIVATED CLOTTING TIME 473 sec High 82-152 [facility] Comment on above: Performed By: #### 0 0121, 26252, 82178, 47684, 88799 ####[facility] [place] [address], [facility] ACTIVATED CLOTTING TIME 424 sec High 82-152 [facility] Comment on above: Performed By: #### 0 0121, 43123, 34129, 23223, 48347 ####[facility], [place] [id number] [place] [address] ACTIVATED CLOTTING TIME 200 sec High 82-152 [facility] Comment on above: Performed By: #### 0 0121, 09176, 40384, 72161, 29895 ####[facility] APTTon 12-19-2016 aPTT 30.5 s Normal 25.0-35.0 [facility] Comment on above: Order Comment: No: D o not add to previous draw Result Comment: ALL RESULTS MUST BE INTERPRETED WITH RESPECT TO BLOOD DRAWING ARTIFACTOR DILUTION ERROR OF ANTICOAGULANT AT THE TIME OF SAMPLING.THE APTT SHOULD NOT BE USED TO MONITOR UNFRACTIONATED HEPARIN THERAPY, THIS LABORATORY NO LONGER HAS AN ESTABLISHED THERAPEUTIC RANGE BASEDON THE APTT. IT IS RECOMMENDED THAT THE [facility] - HEPARIN ASSAY (ANTI-XAACTIVITY) BE USED FOR THIS PURPOSE. Performed By: #### 0 0121, 70622, 53152, 93180, 20824 ####[facility] ARTERIAL BLOOD GAS W/COOXon 12-19-2016 BASE EXCESS -2 mmol/L Normal -2-2 [facility] Comment on above: Performed By: #### 4 6447 ####[facility] [place] [address], [facility] Bicarbonate (HCO3) 24 mmol/L Normal 23-27 [facility] Comment on above: Performed By: #### 4 6447 ####[facility] [place] [address], [facility] CO2 47 mmHg High 35-45 [facility] Comment on above: Performed By: #### 4 6447 ####[facility] [place] [address], [facility] COHB 2 % High 0-1 [facility] Comment on above: Performed By: #### 4 6447 ####[facility] [place] [address], [facility] FIO2 40 % Normal 21-100 [facility] Comment on above: Performed By: #### 4 6431 ####[facility] [place] [address], [facility] METHB 1.0 % Normal 0.0-1.5 [facility] Comment on above: Performed By: #### 4 6413 ####[facility] [place] [address], [facility] MIN VOLUME 8.4 Normal [facility] Comment on above: Performed By: #### 4 2915 ####[facility] [place] [address], [place] MODALITY SPONT Normal [facility] Comment on above: Performed By: #### 4 6443 ####[facility] [place] [address], [facility] O2 saturation 92.3 % Low 94.0-97.0 [facility] Comment on above: Performed By: #### 4 3578 ####[facility] [place] [address], [facility] Oxygen in arterial blood 74 mm[Hg] Low 75-100 [facility] Comment on above: Performed By: #### 4 6447 ####[facility] [place] [address], [facility] PEEP 6.0 CMH20 Normal [facility] Comment on above: Performed By: #### 4 6447 ####[facility] [place] [address], [facility] pH of blood 7.32 [pH] Low 7.35-7.45 [facility] Comment on above: Performed By: #### 4 6447 ####[facility] [place] [address], [facility] PRESSURE SUPPORT 5 Normal [facility] Comment on above: Performed By: #### 4 6447 ####[facility] [place] [address], [facility] THB 12.8 g/dL Low 13.9-16.3 [facility] Comment on above: Performed By: #### 4 6447 ####[facility] [place] [address], [facility] ARTERIAL BLOOD GAS WITH ICAo n 12-19-2016 BASE EXCESS -2 mmol/L Normal -2-2 [facility] Comment on above: Order Comment: If no t done in EDNo: Do not add to previous draw Performed By: #### 4 6464 ####[facility] [place] [address], [facility] Bicarbonate (HCO3) 23 mmol/L Normal 23-27 [facility] Comment on above: Order Comment: If no t done in EDNo: Do not add to previous draw Performed By: #### 4 6465 ####[facility] [place] [address], [facility] CO2 42 mmHg Normal 35-45 [facility] Comment on above: Order Comment: If no t done in EDNo: Do not add to previous draw Performed By: #### 4 6447 ####[facility] [place] [address], [place] FIO2 70 % Normal 21-100 [facility] Comment on above: Order Comment: If no t done in EDNo: Do not add to previous draw Performed By: #### 4 6447 ####[facility] [place] [address], [place] IONIZED CALCIUM 1.15 mmol/L Normal 1.13-1.32 [facility] Comment on above: Order Comment: If no t done in EDNo: Do not add to previous draw Performed By: #### 4 6447 ####[facility] [place] [address], [place] MIN VOLUME 7.9 Normal [facility] Comment on above: Order Comment: If no t done in EDNo: Do not add to previous draw Performed By: #### 4 6447 ####[facility] [place] [address], [place] MODALITY SIMV Normal [facility] Comment on above: Order Comment: If no t done in EDNo: Do not add to previous draw Performed By: #### 4 6447 ####[facility] [place] [address], [place] O2 saturation 94.9 % Normal 94.0-97.0 [facility] Comment on above: Order Comment: If no t done in EDNo: Do not add to previous draw Performed By: #### 4 6402 ####[facility] [place] [address], [place] Oxygen in arterial blood 104 mm[Hg] Critically high 75-100 [facility] Comment on above: Order Comment: If no t done in EDNo: Do not add to previous draw Performed By: #### 4 6488 ####[facility] [place] [address], [facility] PEEP 6.0 CMH20 Normal [facility] Comment on above: Order Comment: If no t done in EDNo: Do not add to previous draw Performed By: #### 4 6447 ####[facility] [place] [address], [facility] pH of blood 7.35 [pH] Normal 7.35-7.45 [facility] Comment on above: Order Comment: If no t done in EDNo: Do not add to previous draw Performed By: #### 4 6447 ####[facility] Respiratory rate 13 /min Normal [facility] Comment on above: Order Comment: If no t done in EDNo: Do not add to previous draw Performed By: #### 4 6447 ####[facility] TIDAL VOLUME (VT) CC 600 Normal [facility] Comment on above: Order Comment: If no t done in EDNo: Do not add to previous draw Performed By: #### 4 6447 ####[facility] BASIC METABOLIC PANELon 09-2 -2016 Calcium 7.9 mg/dL Low 8.6-10.3 [facility] Comment on above: Performed By: #### 0 0121, 05320, 31462, 00544, 71436 ####[facility] [place] [address], [facility] Chloride 109 mmol/L High 98-107 [facility] Comment on above: Performed By: #### 0 0121, 09998, 00496, 09858, 55958 ####[facility] [place] [address], [facility] CO2 21 mmol/L Normal 21-31 [facility] Comment on above: Performed By: #### 0 0121, 71153, 57003, 54263, 07299 ####[facility] Creatinine 0.99 mg/dL Normal 0.70-1.30 [facility] Comment on above: Performed By: #### 0 0121, 60078, 90401, 97873, 27532 ####[facility] eGFR (black) mL/min/{1.73_m2} Normal >60 [facility] Comment on above: Performed By: #### 0 0121, 28260, 15303, 95757, 49998 ####[facility] eGFR (non-black) mL/min/{1.73_m2} Normal >60 Th [facility] Comment on above: Performed By: #### 0 0121, 96756, 07914, 73147, 16237 ####[facility] Glucose mass conc 144 mg/dL High 70-100 [facility] Comment on above: Performed By: #### 0 0121, 72271, 18971, 15728, 94793 ####[facility] Potassium molar conc 4.4 mmol/L Normal 3.5-5.1 [facility] Comment on above: Performed By: #### 0 0121, 03515, 40358, 72857, 42323 ####[facility] Sodium 138 mmol/L Normal 136-145 [facility] Comment on above: Performed By: #### 0 0121, 38001, 79784, 05397, 45335 ####[facility] [place] [address], [facility] Urea nitrogen 25 mg/dL Normal 7-25 [facility] Comment on above: Performed By: #### 0 0121, 85592, 22728, 09687, 32917 ####[facility] [place] [address], [facility] Calcium 9.7 mg/dL Normal 8.6-10.3 [facility] Comment on above: Order Comment: No: D o not add to previous draw Performed By: #### 0 0121, 23361, 97589, 33345, 12514 ####[facility] [place] [address], [facility] Chloride 100 mmol/L Normal 98-107 [facility] Comment on above: Order Comment: No: D o not add to previous draw Performed By: #### 0 0121, 51609, 50002, 26867, 24679 ####[facility] [place] [address], [facility] CO2 28 mmol/L Normal 21-31 [facility] Comment on above: Order Comment: No: D o not add to previous draw Performed By: #### 0 0121, 05848, 42593, 74174, 92802 ####[facility] [place] [address], [facility] Creatinine 1.14 mg/dL Normal 0.70-1.30 [facility] Comment on above: Order Comment: No: D o not add to previous draw Performed By: #### 0 0121, 42900, 82971, 34725, 64713 ####[facility] [place] [address], [place] eGFR (black) mL/min/{1.73_m2} Normal >60 [facility] Comment on above: Order Comment: No: D o not add to previous draw Performed By: #### 0 0121, 06010, 87614, 29818, 20319 ####[facility] eGFR (non-black) mL/min/{1.73_m2} Normal >60 [facility] Comment on above: Order Comment: No: D o not add to previous draw Performed By: #### 0 0121, 32984, 87186, 79938, 08147 ####[facility] [place] [address], [facility] Glucose mass conc 103 mg/dL High 70-100 [facility] Comment on above: Order Comment: No: D o not add to previous draw Performed By: #### 0 0121, 84947, 53531, 72337, 44951 ####[facility] [place] [address], [facility] Potassium molar conc 4.3 mmol/L Normal 3.5-5.1 [facility] Comment on above: Order Comment: No: D o not add to previous draw Performed By: #### 0 0121, 91162, 78593, 93715, 40581 ####[facility] [place] [address], [facility] Sodium 137 mmol/L Normal 136-145 [facility] Comment on above: Order Comment: No: D o not add to previous draw Performed By: #### 0 0121, 98103, 73792, 94262, 25095 ####[facility] [place] [address], [facility] Urea nitrogen 34 mg/dL High 7-25 [facility] Comment on above: Order Comment: No: D o not add to previous draw Performed By: #### 0 0121, 74213, 51996, 31293, 45834 ####[facility] [place] [address], [facility] CBC COMPLETE BLOOD COUNTon 0 9-22-2017 Erythrocyte distribution width Auto Ratio (RBC) 14.4 % Normal 11.5-16.9 [facility] Comment on above: Performed By: #### 0 0121, 00145, 40623, 45851, 94170 ####[facility] Erythrocytes (RBC) 3.62 mill/mm3 Low 4.30-5.90 [facility] Comment on above: Performed By: #### 0 0121, 59167, 01885, 06439, 03398 ####[facility] Hematocrit (HCT) 36.1 % Low 39.0-55.0 [facility] Comment on above: Performed By: #### 0 0121, 10966, 75589, 43216, 18214 ####[facility] Hemoglobin mass conc (Bld) 12.1 g/dL Low 13.9-16.3 [facility] Comment on above: Performed By: #### 0 0121, 25123, 78814, 13366, 52349 ####[facility] MCH 33.3 pg High 24.0-32.0 [facility] Comment on above: Performed By: #### 0 0121, 66903, 41302, 14785, 70563 ####[facility] MCHC mass conc (RBC) 33.3 g/dL Normal 32.0-36.0 [facility] Comment on above: Performed By: #### 0 0121, 84704, 82085, 26469, 31622 ####[facility] MCV 99.8 fL Normal 80.0-100.0 [facility] Comment on above: Performed By: #### 0 0121, 44240, 55593, 65005, 68697 ####[facility] [place] [address], [facility] PLAT CNT 106 Thou/mm3 Normal 100-400 [facility] Comment on above: Performed By: #### 0 0121, 24840, 88096, 33861, 37805 ####[facility] [place] [address], [facility] WBC (Leukocytes) 27.7 Thou/mm3 High 4.0-10.0 [facility] Comment on above: Performed By: #### 0 0121, 82821, 33353, 79043, 45397 ####[facility] Erythrocyte distribution width Auto Ratio (RBC) 14.6 % Normal 11.5-16.9 [facility] Comment on above: Order Comment: No: D o not add to previous draw Performed By: #### 0 0121, 02812, 73324, 93673, 39752 ####[facility] [place] [address], [facility] Erythrocytes (RBC) 4.91 mill/mm3 Normal 4.30-5.90 [facility] Comment on above: Order Comment: No: D o not add to previous draw Performed By: #### 0 0121, 05013, 21820, 34634, 94899 ####[facility] [place] [address], [facility] Hematocrit (HCT) 50.1 % Normal 39.0-55.0 [facility] Comment on above: Order Comment: No: D o not add to previous draw Performed By: #### 0 0121, 51294, 25296, 46925, 82699 ####[facility] Hemoglobin mass conc (Bld) 16.2 g/dL Normal 13.9-16.3 [facility] Comment on above: Order Comment: No: D o not add to previous draw Performed By: #### 0 0121, 49635, 36796, 62006, 92425 ####[facility] MCH 33.0 pg High 24.0-32.0 [facility] Comment on above: Order Comment: No: D o not add to previous draw Performed By: #### 0 0121, 21919, 28057, 53058, 11589 ####[facility] MCHC mass conc (RBC) 32.2 g/dL Normal 32.0-36.0 [facility] Comment on above: Order Comment: No: D o not add to previous draw Performed By: #### 0 0121, 41744, 08815, 01296, 83431 ####[facility] [facility] MCV 102.2 fL High 80.0-100.0 [facility] Comment on above: Order Comment: No: D o not add to previous draw Performed By: #### 0 0121, 50863, 26033, 19254, 83033 ####[facility] PLAT CNT 221 Thou/mm3 Normal 100-400 [facility] Comment on above: Order Comment: No: D o not add to previous draw Performed By: #### 0 0121, 40323, 35819, 57013, 06974 ####[facility] WBC (Leukocytes) 9.9 Thou/mm3 Normal 4.0-10.0 [facility] Comment on above: Order Comment: No: D o not add to previous draw Performed By: #### 0 0121, 41848, 90641, 49840, 82068 ####[facility] [place] [address], [facility] LIVER BATTERYon 12-19-2016 Alanine aminotransferase (ALT) 36 U/L Normal 7-52 [facility] Comment on above: Order Comment: No: D o not add to previous draw Performed By: #### 0 0121, 12067, 20140, 73534, 81163 ####[facility] [place] [address], [facility] Albumin 4.1 g/dL Normal 3.5-5.7 [facility] Comment on above: Order Comment: No: D o not add to previous draw Performed By: #### 0 0121, 59965, 39562, 02962, 63490 ####[facility] [place] [address], [facility] ALKALINE PHOSPH 53 IU/L Normal 34-104 [facility] Comment on above: Order Comment: No: D o not add to previous draw Performed By: #### 0 0121, 04376, 70656, 41620, 12910 ####[facility] [place] [address], [facility] Aspartate aminotransferase (AST) 35 U/L Normal 13-39 [facility] Comment on above: Order Comment: No: D o not add to previous draw Performed By: #### 0 0121, 94703, 41020, 26228, 89637 ####[facility] [place] [address], [facility] Bilirubin (direct) 0.1 mg/dL Normal 0.0-0.2 [facility] Comment on above: Order Comment: No: D o not add to previous draw Performed By: #### 0 0121, 75986, 25852, 32448, 08224 ####[facility] Bilirubin (total) 1.1 mg/dL High 0.3-1.0 [facility] Comment on above: Order Comment: No: D o not add to previous draw Performed By: #### 0 0121, 76525, 02415, 92359, 23713 ####[facility] Protein 7.2 g/dL Normal 6.0-8.3 [facility] Comment on above: Order Comment: No: D o not add to previous draw Performed By: #### 0 0121, 21721, 88106, 44376, 80885 ####[facility] MAGNESIUM BLOODon 12-19-2016 Magnesium 2.5 mg/dL Normal 1.9-2.7 [facility] Comment on above: Performed By: #### 0 0121, 91500, 06258, 57415, 49533 ####[facility] Operative Reporton 7 Operative Report MR#: [id number] [facility] Torsten Haywood Room #: 3AB [id number] Discharge Date: Birthdate: 1955 OPERATIVE REPORTDATE OF SURGERY: 12/19/2016SURGEON: Torsten Yepez M.D.ASSISTANTS:JH Gerard who assisted with the case as there was no appropriatelyqualified certified ophthalmic surgical assistant available for the surgery and the harvesting ofvein.KASI Wakefield.ENDER SerraTHESIOLOGIST:ENDER PazTHESIA:General.PREOPE RATIVE DIAGNOSES:1. Coronary artery occlusive disease.2. Cardiomyopathy.POSTOPERATIV E DIAGNOSES:1. Coronary artery occlusive disease.2. Cardiomyopathy.PROCEDURE: Urgent coronary artery bypass grafting x5 with a left internalmammary artery to the LAD, a sequential left radial artery graft to thediagonal and the ramus intermedius, right radial artery graft to the [id number] vein graft to the PDA, harvesting of the left upper extremityradial artery, harvesting of the right upper extremity radial artery,endoscopic harvesting of the left greater saphenous vein.INDICATIONS: Severe multivessel coronary artery occlusive disease.Diminished left ventricular ejection fraction in the patient, who presentedto the hospital with severe CHF characterized by significant fluidoverload, wedge pressure of 30. Following appropriate and aggressivediuresis, and anti-failure regimen, the patient's hemodynamics improvedsubstantially. The patient underwent diagnostic cardiac catheterization.This documented severe multivessel coronary artery occlusive disease.Following informed consent and discussing the patient's options, thepatient decided to proceed with surgical myocardial reconstruction.INTRAOPERATI VE FINDINGS: The patient's LV function preoperatively wasapproximately 15%-20%. The patient's postoperative ejection fraction wasapproximately 25%. The patient's conduits were of adequate caliber andquality. The ascending aorta was without significant calcifications. Theaortic valve was leaking, had mild aortic insufficiency. The patient'scoronary arteries were severely and heavily diseased along their entirecourse. The LAD was a 2 mm vessel. The vessel was grafted in its distal 3rdat the site of the anastomosis, plaquing was identified. The diagonalbranch of the LAD was a 2 mm vessel. Proximal distal disease was amoderately extensive. The ramus intermedius was a 2 mm vessel. Extensiveproximal distal disease was also noted. The OM1 was an intramyocardialvessel, it was difficult to locate, it was approximately 2 mm in diameter.The PDA was a 3 mm vessel with excellent outflow. Transit time Doppler flowanalysis documented good flow from all coronary grafts. In addition, thepatient required low-dose epinephrine to separate from cardiopulmonarybypass. The patient's PA pressures were approximately 40/20 preoperativelyand this remained at those levels postoperatively.DESCRIPTION OF PROCEDURE:Following informed consent, the patient was brought to the operating room,placed on the operating room table in the supine position. Followinginduction of the general endotracheal anesthesia and placement ofappropriate hemodynamic monitoring catheters, the patient's chest, abdomen,upper and lower extremities were prepped and draped in the usual sterilefashion. The patient's chest was explored through a median sternotomyincision. The patient's conduits were harvested with the left greatersaphenous vein harvested endoscopically and prepared in the standardfashion to serve as grafts for coronary reconstruction. The patient wassystemically heparinized. The patient's pericardium was openedlongitudinally. The heart was suspended in the pericardial cradle. Thepatient was cannulated for cardiopulmonary bypass via the ascending aortaand right atrial appendage. Appropriate cannulas were placed to delivercardioplegia. With adequate anticoagulation, cardiopulmonary bypass wasinstituted.Target vessels were chosen as described above. The aorta was cross clamped.Myocardial protection was achieved via a hyperkalemic 4 degrees centigradecardioplegia. Following the initial bolus of cardioplegia, prompt diastolicarrest was effected. Subsequent boluses of cardioplegia were given at 20 to30 minute intervals. Target vessels were brought sequentially into theoperative field. A small arteriotomy was made in the target vessel. Thetarget vessels were inspected. The conduits were anastomosed to the targetvessels in end-to-side or [id number] fashion using running 7-0 Prolenesutures. The heel and toe of each anastomosis were probed. Each anastomosiswas flushed and each anastomosis was completed. The left internal mammaryartery pedicle was attached to the epicardium using 5-0 Prolene sutures.Following completion of the last distal anastomosis, the aorta wasunclamped. The proximal anastomoses were carried out using a side-bitingclamp placed on the ascending aorta with exclusion of a portion of theascending aortic wall from the circulation. The proximal anastomoses werecarried out using 6-0 Prolene sutures. The excluded portion of the aortawas de-aired through an incomplete proximal suture line. The side-bitingclamp was removed. The last proximal anastomosis was completed and themyocardium was reperfused. Temporary atrial and ventricular pacing wireswere placed. The mediastinum was drained with 2 Ritesh drains. The pleuralcavity was drained with a Ritesh drain.Following optimization of the patient's hemodynamics and correction of allmetabolic abnormalities, the patient was weaned from cardiopulmonary bypasswith adequate hemodynamics. Protamine infusion was initiated. The patientwas decannulated. The pericardium was closed loosely over the anteriorsurface of the heart. With meticulous hemostasis and excellenthemodynamics, the sternum was reapproximated using sternal wires. The lineaalba was closed using heavy absorbable sutures. Subcutaneous tissues wereclosed using several layers of absorbable sutures. The skin was closedusing subcuticular fine absorbable sutures. All the incisions were coveredwith biologic glue. The sponge and needle counts were correct. There wereno complications.The patient was transported to the CV unit in a stable, albeit criticalcondition for further postoperative care.Electronically Signed by:Torsten Yepez M.D. 12/24/2016 09:02 A Torsten Yepez M.D.Date Dict: 12/19/2016/02:29 P/Torsten Yepez M.D.Date Trans: 12/19/2016 04:17 P/[id number] : Torsten Yepez M.D. [facility] Dept[facility] Of Surgery [place] [address] Normal [facility] PERFUSION BLOOD PANELon 11-29 BASE EXCESS -3.0 mmol/L Low -2.0-3.0 [facility] Comment on above: Performed By: #### 0 0121, 09445, 05327, 13023, 75208 ####[facility] [facility].[address] CO2 33.1 mmHg Low 35.0-45.0 [facility] Comment on above: Performed By: #### 0 0121, 77353, 17659, 38107, 98220 ####[facility] [facility].[address] Glucose mass conc 143 mg/dL High 70-105 [facility] Comment on above: Performed By: #### 0 0121, 77620, 41463, 64919, 39051 ####[facility] [facility].[address] Hematocrit (HCT) 36 % Low 38-51 [facility] Comment on above: Performed By: #### 0 0121, 81791, 97904, 30096, 82710 ####[facility] [place] [address], [facility] Hemoglobin mass conc (Bld) 12.2 g/dL Normal 12.0-17.0 [facility] Comment on above: Performed By: #### 0 0121, 31118, 80323, 83594, 53217 ####[facility] [place] [address], [facility] IONIZED CALCIUM 1.18 mmol/L Normal 1.12-1.32 [facility] Comment on above: Performed By: #### 0 0121, 45079, 47021, 43011, 26929 ####[facility] [place] [address], [facility] Oxygen in arterial blood 80.0 mm[Hg] Normal 80.0-105.0 [facility] Comment on above: Performed By: #### 0 0121, 52786, 06334, 43072, 38900 ####[facility] [place] [address], [facility] pH of blood 7.41 [pH] Normal 7.35-7.45 [facility] Comment on above: Performed By: #### 0 0121, 78875, 71583, 69221, 46831 ####[facility] [place] [address], [facility] Potassium molar conc 4.4 mmol/L Normal 3.5-4.9 [facility] Comment on above: Performed By: #### 0 0121, 53428, 32322, 35490, 03124 ####[facility] [place] [address], [facility] Sodium 138 mmol/L Normal 138-146 [facility] Comment on above: Performed By: #### 0 0121, 72616, 56927, 38985, 14417 ####[facility] [place] [address], [facility] BASE EXCESS -1.0 mmol/L Normal -2.0-3.0 [facility] Comment on above: Performed By: #### 0 0121, 47860, 65342, 24173, 94507 ####[facility] [place] [address], [facility] CO2 44.3 mmHg Normal 35.0-45.0 [facility] Comment on above: Performed By: #### 0 0121, 48931, 26068, 01183, 84325 ####[facility] Glucose mass conc 150 mg/dL High 70-105 [facility] Comment on above: Performed By: #### 0 0121, 38526, 52713, 28605, 51983 ####[facility] Hematocrit (HCT) 33 % Low 38-51 [facility] Comment on above: Performed By: #### 0 0121, 22601, 08595, 92083, 48934 ####[facility] Hemoglobin mass conc (Bld) 11.2 g/dL Low 12.0-17.0 [facility] Comment on above: Performed By: #### 0 0121, 68101, 58602, 56065, 48420 ####[facility] IONIZED CALCIUM 1.25 mmol/L Normal 1.12-1.32 [facility] Comment on above: Performed By: #### 0 0121, 83737, 26702, 25823, 98382 ####[facility] Oxygen in arterial blood 61.0 mm[Hg] Low 80.0-105.0 [facility] Comment on above: Performed By: #### 0 0121, 53017, 24271, 13462, 75204 ####[facility] pH of blood 7.35 [pH] Normal 7.35-7.45 [facility] Comment on above: Performed By: #### 0 0121, 51422, 04358, 15073, 07474 ####[facility] [place] [address], [facility] Potassium molar conc 4.3 mmol/L Normal 3.5-4.9 [facility] Comment on above: Performed By: #### 0 0121, 40808, 19969, 08663, 94820 ####[facility] Sodium 137 mmol/L Low 138-146 [facility] Comment on above: Performed By: #### 0 0121, 07440, 53081, 57225, 53635 ####[facility] BASE EXCESS 2.0 mmol/L Normal -2.0-3.0 [facility] Comment on above: Performed By: #### 0 0121, 40133, 72415, 12786, 72777 ####[facility] [place] [address], [facility] CO2 39.8 mmHg Normal 35.0-45.0 [facility] Comment on above: Performed By: #### 0 0121, 57826, 80270, 87626, 07889 ####[facility] Glucose mass conc 169 mg/dL High 70-105 [facility] Comment on above: Performed By: #### 0 0121, 32682, 00120, 67372, 97236 ####[facility] Hematocrit (HCT) 38 % Normal 38-51 [facility] Comment on above: Performed By: #### 0 0121, 40773, 28038, 68971, 03443 ####[facility] Hemoglobin mass conc (Bld) 12.9 g/dL Normal 12.0-17.0 [facility] Comment on above: Performed By: #### 0 0121, 44483, 40819, 77783, 12517 ####[facility] IONIZED CALCIUM 1.10 mmol/L Low 1.12-1.32 [facility] Comment on above: Performed By: #### 0 0121, 73934, 36658, 99165, 91657 ####[facility] Oxygen in arterial blood 324.0 mm[Hg] High 80.0-105.0 [facility] Comment on above: Performed By: #### 0 0121, 99619, 14291, 67524, 94749 ####[facility] pH of blood 7.44 [pH] Normal 7.35-7.45 [facility] Comment on above: Performed By: #### 0 0121, 81425, 20037, 39474, 91567 ####[facility] [place] [address], [facility] Potassium molar conc 5.0 mmol/L High 3.5-4.9 [facility] Comment on above: Performed By: #### 0 0121, 85301, 35695, 95693, 80454 ####[facility] [place] [address], [facility] Sodium 135 mmol/L Low 138-146 [facility] Comment on above: Performed By: #### 0 0121, 98459, 42965, 52786, 00346 ####[facility] BASE EXCESS 1.0 mmol/L Normal -2.0-3.0 [facility] Comment on above: Performed By: #### 0 0121, 42695, 89988, 17635, 63583 ####[facility] CO2 38.1 mmHg Normal 35.0-45.0 [facility] Comment on above: Performed By: #### 0 0121, 59444, 77097, 79204, 92884 ####[facility] Glucose mass conc 143 mg/dL High 70-105 [facility] Comment on above: Performed By: #### 0 0121, 99448, 76676, 20379, 70813 ####[facility] Hematocrit (HCT) 37 % Low 38-51 [facility] Comment on above: Performed By: #### 0 0121, 55166, 10593, 18080, 04917 ####[facility] Hemoglobin mass conc (Bld) 12.6 g/dL Normal 12.0-17.0 [facility] Comment on above: Performed By: #### 0 0121, 40196, 52853, 06761, 05109 ####[facility] IONIZED CALCIUM 1.11 mmol/L Low 1.12-1.32 [facility] Comment on above: Performed By: #### 0 0121, 38848, 26981, 75282, 23218 ####[facility] [place] [address], [facility] Oxygen in arterial blood 354.0 mm[Hg] High 80.0-105.0 [facility] Comment on above: Performed By: #### 0 0121, 01790, 91316, 64095, 34682 ####[facility] [place] [address], [place] pH of blood 7.43 [pH] Normal 7.35-7.45 [facility] Comment on above: Performed By: #### 0 0121, 02364, 01762, 12603, 58809 ####[facility] [place] [address], [facility] Potassium molar conc 5.1 mmol/L High 3.5-4.9 [facility] Comment on above: Performed By: #### 0 0121, 06929, 70062, 16913, 25290 ####[facility] [place] [address], [facility] Sodium 133 mmol/L Low 138-146 [facility] Comment on above: Performed By: #### 0 0121, 56861, 23894, 03801, 47451 ####[facility] [place] [address], [facility] BASE EXCESS 3.0 mmol/L Normal -2.0-3.0 [facility] Comment on above: Performed By: #### 0 0121, 73361, 18430, 98082, 02987 ####[facility] [place] [address], [place] CO2 40.8 mmHg Normal 35.0-45.0 [facility] Comment on above: Performed By: #### 0 0121, 66328, 00104, 28053, 97856 ####[facility] [place] [address], [place] Glucose mass conc 133 mg/dL High 70-105 [facility] Comment on above: Performed By: #### 0 0121, 32167, 54208, 95249, 73520 ####[facility] [place] [address], [facility] Hematocrit (HCT) 38 % Normal 38-51 [facility] Comment on above: Performed By: #### 0 0121, 07202, 94349, 88417, 78437 ####[facility] Hemoglobin mass conc (Bld) 12.9 g/dL Normal 12.0-17.0 [facility] Comment on above: Performed By: #### 0 0121, 56832, 61709, 42188, 21625 ####[facility] IONIZED CALCIUM 1.07 mmol/L Low 1.12-1.32 [facility] Comment on above: Performed By: #### 0 0121, 53324, 27166, 87456, 39530 ####[facility] [place] [address], [facility] Oxygen in arterial blood 566.0 mm[Hg] High 80.0-105.0 [facility] Comment on above: Performed By: #### 0 0121, 65618, 79615, 68973, 64438 ####[facility] [place] [address], [facility] pH of blood 7.44 [pH] Normal 7.35-7.45 [facility] Comment on above: Performed By: #### 0 0121, 18282, 01544, 30468, 67743 ####[facility] [place] [address], [facility] Potassium molar conc 5.3 mmol/L High 3.5-4.9 [facility] Comment on above: Performed By: #### 0 0121, 37743, 92679, 77243, 87038 ####[facility] [place] [address], [facility] Sodium 134 mmol/L Low 138-146 [facility] Comment on above: Performed By: #### 0 0121, 97641, 68731, 21725, 88125 ####[facility] [place] [address], [facility] BASE EXCESS 3.0 mmol/L Normal -2.0-3.0 [facility] Comment on above: Performed By: #### 0 0121, 03425, 94017, 01625, 21196 ####[facility] [place] [address], [facility] CO2 37.8 mmHg Normal 35.0-45.0 [facility] Comment on above: Performed By: #### 0 0121, 35945, 78048, 95212, 19983 ####[facility] [place] [address], [facility] Glucose mass conc 116 mg/dL High 70-105 [facility] Comment on above: Performed By: #### 0 0121, 91151, 34751, 21888, 72813 ####[facility] Hematocrit (HCT) 39 % Normal 38-51 [facility] Comment on above: Performed By: #### 0 0121, 05072, 24359, 47680, 37245 ####[facility] [place] [address], [facility] Hemoglobin mass conc (Bld) 13.3 g/dL Normal 12.0-17.0 [facility] Comment on above: Performed By: #### 0 0121, 27244, 88789, 20958, 64306 ####[facility] [place] [address], [facility] IONIZED CALCIUM 1.11 mmol/L Low 1.12-1.32 [facility] Comment on above: Performed By: #### 0 0121, 04128, 34184, 79544, 37723 ####[facility] [place] [address], [facility] Oxygen in arterial blood 583.0 mm[Hg] High 80.0-105.0 [facility] Comment on above: Performed By: #### 0 0121, 13735, 77816, 65539, 30953 ####[facility] [place] [address], [facility] pH of blood 7.46 [pH] High 7.35-7.45 [facility] Comment on above: Performed By: #### 0 0121, 43436, 59890, 55914, 02088 ####[facility] [place] [address], [facility] Potassium molar conc 5.2 mmol/L High 3.5-4.9 [facility] Comment on above: Performed By: #### 0 0121, 37328, 07233, 03696, 00870 ####[facility] [place] [address], [facility] Sodium 135 mmol/L Low 138-146 [facility] Comment on above: Performed By: #### 0 0121, 49928, 20802, 72074, 43737 ####[facility] [place] [address], [facility] BASE EXCESS 3.0 mmol/L Normal -2.0-3.0 [facility] Comment on above: Performed By: #### 0 0121, 56337, 95528, 24087, 70370 ####[facility] [place] [address], [facility] CO2 43.6 mmHg Normal 35.0-45.0 [facility] Comment on above: Performed By: #### 0 0121, 22593, 68740, 07958, 73226 ####[facility] Glucose mass conc 113 mg/dL High 70-105 [facility] Comment on above: Performed By: #### 0 0121, 36992, 08250, 84124, 28740 ####[facility] Hematocrit (HCT) 38 % Normal 38-51 [facility] Comment on above: Performed By: #### 0 0121, 45355, 04695, 82575, 44019 ####[facility] Hemoglobin mass conc (Bld) 12.9 g/dL Normal 12.0-17.0 [facility] Comment on above: Performed By: #### 0 0121, 84659, 25873, 50435, 89665 ####[facility] IONIZED CALCIUM 1.06 mmol/L Low 1.12-1.32 [facility] Comment on above: Performed By: #### 0 0121, 92829, 58336, 67406, 04665 ####[facility] Oxygen in arterial blood 464.0 mm[Hg] High 80.0-105.0 [facility] Comment on above: Performed By: #### 0 0121, 50278, 25503, 25988, 16635 ####[facility] pH of blood 7.42 [pH] Normal 7.35-7.45 [facility] Comment on above: Performed By: #### 0 0121, 07396, 32453, 25394, 81020 ####[facility] [place] [address], [facility] Potassium molar conc 4.9 mmol/L Normal 3.5-4.9 [facility] Comment on above: Performed By: #### 0 0121, 77732, 68702, 46790, 78997 ####[facility] [place] [address], [facility] Sodium 133 mmol/L Low 138-146 [facility] Comment on above: Performed By: #### 0 0121, 39169, 61859, 28706, 46905 ####[facility] [place] [address], [facility] BASE EXCESS -1.0 mmol/L Normal -2.0-3.0 [facility] Comment on above: Performed By: #### 0 0121, 64595, 50746, 77472, 96300 ####[facility] [place] [address], [facility] CO2 50.8 mmHg High 35.0-45.0 [facility] Comment on above: Performed By: #### 0 0121, 20405, 31386, 71074, 14331 ####[facility] [place] [address], [facility] Glucose mass conc 120 mg/dL High 70-105 [facility] Comment on above: Performed By: #### 0 0121, 74506, 99748, 12103, 20076 ####[facility] [place] [address], [facility] Hematocrit (HCT) 45 % Normal 38-51 [facility] Comment on above: Performed By: #### 0 0121, 26655, 72208, 90708, 03975 ####[facility] [place] [address], [facility] Hemoglobin mass conc (Bld) 15.3 g/dL Normal 12.0-17.0 [facility] Comment on above: Performed By: #### 0 0121, 94008, 21748, 80198, 53141 ####[facility] [place] [address], [facility] IONIZED CALCIUM 1.21 mmol/L Normal 1.12-1.32 [facility] Comment on above: Performed By: #### 0 0121, 94067, 37845, 36626, 08647 ####[facility] [place] [address], [facility] Oxygen in arterial blood 236.0 mm[Hg] High 80.0-105.0 [facility] Comment on above: Performed By: #### 0 0121, 61760, 41244, 91307, 55824 ####[facility] [place] [address], [facility] pH of blood 7.32 [pH] Low 7.35-7.45 [facility] Comment on above: Performed By: #### 0 0121, 00031, 72917, 07618, 61235 ####[facility] [place] [address], [facility] Potassium molar conc 4.4 mmol/L Normal 3.5-4.9 [facility] Comment on above: Performed By: #### 0 0121, 19533, 57176, 07204, 13249 ####[facility] [place] [address], [facility] Sodium 136 mmol/L Low 138-146 [facility] Comment on above: Performed By: #### 0 0121, 69158, 00749, 71686, 56663 ####[facility] [place] [address], [facility] BASE EXCESS 1.0 mmol/L Normal -2.0-3.0 [facility] Comment on above: Performed By: #### 0 0121, 40558, 76764, 02353, 57994 ####[facility] [place] [address], [facility] CO2 43.1 mmHg Normal 35.0-45.0 [facility] Comment on above: Performed By: #### 0 0121, 15403, 71557, 66717, 62658 ####[facility] [place] [address], [facility] Glucose mass conc 133 mg/dL High 70-105 [facility] Comment on above: Performed By: #### 0 0121, 24290, 26376, 81775, 27444 ####[facility] Hematocrit (HCT) 45 % Normal 38-51 [facility] Comment on above: Performed By: #### 0 0121, 54956, 13207, 72642, 71567 ####[facility] Hemoglobin mass conc (Bld) 15.3 g/dL Normal 12.0-17.0 [facility] Comment on above: Performed By: #### 0 0121, 93317, 66382, 68843, 59065 ####[place] [address] IONIZED CALCIUM 1.19 mmol/L Normal 1.12-1.32 [facility] Comment on above: Performed By: #### 0 0121, 07163, 29419, 57810, 33272 ####[facility] Oxygen in arterial blood 97.0 mm[Hg] Normal 80.0-105.0 [facility] Comment on above: Performed By: #### 0 0121, 36686, 91453, 52390, 03583 ####[facility] [place] [address], [facility] pH of blood 7.39 [pH] Normal 7.35-7.45 [facility] Comment on above: Performed By: #### 0 0121, 74344, 10442, 70279, 20143 ####[facility] [place] [address], [facility] Potassium molar conc 4.3 mmol/L Normal 3.5-4.9 [facility] Comment on above: Performed By: #### 0 0121, 62516, 79686, 74773, 31951 ####[facility] [place] [address], [facility] Sodium 136 mmol/L Low 138-146 [facility] Comment on above: Performed By: #### 0 0121, [id number], 36387, 08710, 76642 ####[facility] [place] [address], [facility] POC GLUCOSE LABon 12-19-2016 Glucose mass conc 129 mg/dL High 70-100 The [facility] Comment on above: Performed By: #### 4 6447 ####[place] [place] [address], [place] Glucose mass conc 128 mg/dL High 70-100 The [facility] Comment on above: Performed By: #### 4 6447 ####[facility] [place] [address], [place] Glucose mass conc 140 mg/dL High 70-100 The [facility] Comment on above: Performed By: #### 4 6417 ####[place] [address] [place] [address], [place] Glucose mass conc 144 mg/dL High 70-100 The [facility] Comment on above: Performed By: #### 4 6457 ####[facility] [place] [address], [place] Glucose mass conc 154 mg/dL High 70-100 The [facility] Comment on above: Performed By: #### 4 6447 ####[facility] [facility] [place] [address], [facility] Glucose mass conc 153 mg/dL High 70-100 The [facility] Comment on above: Performed By: #### 4 6447 ####[facility] [facility] [place] [address], [facility] Glucose mass conc 148 mg/dL High 70-100 The [facility] Comment on above: Performed By: #### 4 [id number] ####[facility]3000 [facility] [place] [address], [facility] Glucose mass conc 113 mg/dL High 70-100 [facility] Comment on above: Performed By: #### 0 0121, 88277, 60539, 95137, 89194 ####[facility] PROTHROMBIN TIMEon 7 INR Coag RelTime (PPP) 1.07 {INR} Normal 0.91-1.16 [facility] Comment on above: Order Comment: No: D o not add to previous draw Result Comment: ACCC P RECOMMENDED INR FOR WARFARIN THERAPY CONDITION INRPROPHYLAXIS OF VENOUS THROMBOSIS 2-3(HIGH-RISK SURGERY)TREATMENT OF VENOUS THROMBOSIS 2-3TREATMENT OF PULMONARY EMBOLISM 2-3PREVENTION OF SYSTEMIC EMBOLISM: 2-3 ACUTE MYOCARDIAL INFARCTION TISSUE HEART VALVES VALVULAR HEART DISEASE ATRIAL FIBRILLATION RECURRENT SYSTEMIC EMBOLISMMECHANICAL HEART VALVE 2.5-3.5 FROM: ORAL ANTICOAGULANTS. MECHANISM OF ACTION, CLINICALEFFECTIVENESS, AND OPTIMAL THERAPEUTIC RANGE. [id number]-246S. Performed By: #### 0 0121, 89741, 68156, 96549, 53266 ####[facility] Prothrombin time (PT) Coag time (PPP) 13.9 s Normal 12.3-14.8 [facility] Comment on above: Order Comment: No: D o not add to previous draw Result Comment: ALL RESULTS MUST BE INTERPRETED WITH RESPECT TO BLOOD DRAWING ARTIFACTOR DILUTION ERROR OF ANTICOAGULANT AT THE TIME OF SAMPLING. Performed By: #### 0 0121, 51651, 57577, 74231, 03980 ####[facility] [place] [address], [facility] URINALYSISon 12-19-2016 Bilirubin (total) Negative Normal NEGATIVE [facility] Comment on above: Order Comment: No: D o not add to previous draw Performed By: #### 0 0121, 93032, 87533, 84514, 35650 ####[facility] [place] [address], [facility] BLOOD Negative Normal NEGATIVE [facility] Comment on above: Order Comment: No: D o not add to previous draw Performed By: #### 0 0121, 49085, 64375, 52180, 63791 ####[facility] [place] [address], [place] Glucose mass conc Negative Normal NEGATIVE [facility] Comment on above: Order Comment: No: D o not add to previous draw Performed By: #### 0 0121, 88902, 25646, 95939, 38961 ####[facility] [place] [address], [facility] KETONE Negative Normal NEGATIVE [facility] Comment on above: Order Comment: No: D o not add to previous draw Performed By: #### 0 0121, 09294, 62038, 31135, 30598 ####[facility] [place] [address], [facility] LEUK TRICE Negative Normal NEGATIVE [facility] Comment on above: Order Comment: No: D o not add to previous draw Performed By: #### 0 0121, 97447, 92293, 29153, 01481 ####[facility] [place] [address], [facility] MUCUS THREADS FEW Abnormal NONE SEEN [facility] Comment on above: Order Comment: No: D o not add to previous draw Performed By: #### 0 0121, 88792, 15562, 87567, 41292 ####[facility] [place] [address], [facility] pH of blood 5.0 [pH] Normal 5.0-8.0 [facility] Comment on above: Order Comment: No: D o not add to previous draw Performed By: #### 0 0121, 04711, 37458, 78589, 05272 ####[facility] [place] [address], [facility] Protein Negative Normal NEGATIVE [facility] Comment on above: Order Comment: No: D o not add to previous draw Performed By: #### 0 0121, 76996, 20292, 50622, 37079 ####[facility] [place] [address], [facility] SPEC GRAV 1.023 High 1.015-1.020 [facility] Comment on above: Order Comment: No: D o not add to previous draw Performed By: #### 0 0121, 01420, 39625, 29489, 08939 ####[facility] [place] [address], [facility] Urine, appearance CLEAR Normal CLEAR [facility] Comment on above: Order Comment: No: D o not add to previous draw Performed By: #### 0 0121, 59525, 94454, 30912, 52721 ####[facility] [place] [address], [facility] Urine, color YELLOW Normal YELLOW [facility] Comment on above: Order Comment: No: D o not add to previous draw Performed By: #### 0 0121, 21247, 16894, 73076, 69966 ####[facility] [place] [address], [facility] Urine, nitrite presence Negative Normal NEGATIVE [facility] Comment on above: Order Comment: No: D o not add to previous draw Performed By: #### 0 0121, 35245, 21025, 61680, 88632 ####[facility] [place] [address], [facility] WBC UA NONE SEEN Abnormal 0-0 [facility] Comment on above: Order Comment: No: D o not add to previous draw Performed By: #### 0 0121, 76327, 95883, 25990, 23799 ####[facility] [place] [address], [facility] BASIC METABOLIC PANELon 09-2 Calcium 9.3 mg/dL Normal 8.6-10.3 [facility] Comment on above: Order Comment: << ON ADMISSION If not done in ED>>No: Do not add to previous draw Performed By: #### 0 0121, 84046, 23959, 01884, 77989 ####[facility] [place] [address], [facility] Chloride 99 mmol/L Normal 98-107 [facility] Comment on above: Order Comment: << ON ADMISSION If not done in ED>>No: Do not add to previous draw Performed By: #### 0 0121, 11461, 93463, 90730, 37889 ####[facility] [place] [address], [facility] CO2 29 mmol/L Normal 21-31 [facility] Comment on above: Order Comment: << ON ADMISSION If not done in ED>>No: Do not add to previous draw Performed By: #### 0 0121, 82168, 73997, 63745, 80328 ####[facility] [place] [address], [facility] Creatinine 1.30 mg/dL Normal 0.70-1.30 [facility] Comment on above: Order Comment: << ON ADMISSION If not done in ED>>No: Do not add to previous draw Performed By: #### 0 0121, 92830, 09150, 67597, 26616 ####[facility] eGFR (black) mL/min/{1.73_m2} Normal >60 [facility] Comment on above: Order Comment: << ON ADMISSION If not done in ED>>No: Do not add to previous draw Performed By: #### 0 0121, 43393, 13976, 77383, 50154 ####[facility] [facility] eGFR (non-black) 57 ml/min/1.73sq m Abnormal >60 [facility] Comment on above: Order Comment: << ON ADMISSION If not done in ED>>No: Do not add to previous draw Performed By: #### 0 0121, 24983, 59157, 31553, 93639 ####[facility] [place] [address], [facility] Glucose mass conc 99 mg/dL Normal 70-100 [facility] Comment on above: Order Comment: << ON ADMISSION If not done in ED>>No: Do not add to previous draw Performed By: #### 0 0121, 17319, 01174, 24643, 90285 ####[facility] Potassium molar conc 4.5 mmol/L Normal 3.5-5.1 [facility] Comment on above: Order Comment: << ON ADMISSION If not done in ED>>No: Do not add to previous draw Performed By: #### 0 0121, 85431, 73945, 73270, 38047 ####[facility] Sodium 136 mmol/L Normal 136-145 [facility] Comment on above: Order Comment: << ON ADMISSION If not done in ED>>No: Do not add to previous draw Performed By: #### 0 0121, 49618, 65992, 27833, 34935 ####[facility] Urea nitrogen 37 mg/dL High 7-25 [facility] Comment on above: Order Comment: << ON ADMISSION If not done in ED>>No: Do not add to previous draw Performed By: #### 0 0121, 18485, 76252, 76051, 61182 ####[facility] CBC W/DIFFon 12-18-2016 Basophils Auto #/vol (Bld) 0.7 % Normal 0.0-2.0 [facility] Comment on above: Order Comment: << ON ADMISSION If not done in ED>>No: Do not add to previous draw Performed By: #### 0 0121, 73785, 75582, 73677, 60528 ####[facility] Eosinophils/100 leukocytes 4.6 % Normal 0.0-5.0 [facility] Comment on above: Order Comment: << ON ADMISSION If not done in ED>>No: Do not add to previous draw Performed By: #### 0 0121, 73611, 86388, 03204, 94894 ####[facility] Erythrocyte distribution width Auto Ratio (RBC) 14.8 % Normal 11.5-16.9 [facility] Comment on above: Order Comment: << ON ADMISSION If not done in ED>>No: Do not add to previous draw Performed By: #### 0 0121, 75089, 66072, 13819, 10471 ####[facility] Erythrocytes (RBC) 4.86 mill/mm3 Normal 4.30-5.90 [facility] Comment on above: Order Comment: << ON ADMISSION If not done in ED>>No: Do not add to previous draw Performed By: #### 0 0121, 81552, 36221, 77167, 75460 ####[facility] Hematocrit (HCT) 49.4 % Normal 39.0-55.0 [facility] Comment on above: Order Comment: << ON ADMISSION If not done in ED>>No: Do not add to previous draw Performed By: #### 0 0121, 88452, 31488, 22576, 56659 ####[facility] Hemoglobin mass conc (Bld) 16.0 g/dL Normal 13.9-16.3 [facility] Comment on above: Order Comment: << ON ADMISSION If not done in ED>>No: Do not add to previous draw Performed By: #### 0 0121, 75596, 58815, 80041, 83250 ####[facility] [place] [address], [facility] Lymphocytes/100 leukocytes 27.1 % Normal 20.0-40.0 [facility] Comment on above: Order Comment: << ON ADMISSION If not done in ED>>No: Do not add to previous draw Performed By: #### 0 0121, 76562, 21004, 28592, 29893 ####[facility] MCH 33.0 pg High 24.0-32.0 [facility] Comment on above: Order Comment: << ON ADMISSION If not done in ED>>No: Do not add to previous draw Performed By: #### 0 0121, 25897, 80697, 41571, 03097 ####[facility] MCHC mass conc (RBC) 32.5 g/dL Normal 32.0-36.0 [facility] Comment on above: Order Comment: << ON ADMISSION If not done in ED>>No: Do not add to previous draw Performed By: #### 0 0121, 86304, 79926, 01708, 42749 ####[facility] [facility].[address] MCV 101.6 fL High 80.0-100.0 [facility] Comment on above: Order Comment: << ON ADMISSION If not done in ED>>No: Do not add to previous draw Performed By: #### 0 0121, 46254, 77038, 65891, 09000 ####[facility] [facility] METHOD Normal RBC Morphology Normal [facility] Comment on above: Order Comment: << ON ADMISSION If not done in ED>>No: Do not add to previous draw Performed By: #### 0 0121, 72337, 78007, 22769, 79310 ####[facility] MONOS 18.7 % High 2-8 [facility] Comment on above: Order Comment: << ON ADMISSION If not done in ED>>No: Do not add to previous draw Performed By: #### 0 0121, 68020, 07908, 23159, 86739 ####[facility] [facility] [place] [address], [facility] Neutrophils/100 leukocytes 48.9 % Low 50-70 [facility] Comment on above: Order Comment: << ON ADMISSION If not done in ED>>No: Do not add to previous draw Performed By: #### 0 0121, 24892, 95858, 67015, 09761 ####[facility] [facility] [place] [address], [facility] PLAT CNT 208 Thou/mm3 Normal 100-400 [facility] Comment on above: Order Comment: << ON ADMISSION If not done in ED>>No: Do not add to previous draw Performed By: #### 0 0121, 06174, 34897, 74660, 25407 ####[facility] [facility].[address] WBC (Leukocytes) 9.8 Thou/mm3 Normal 4.0-10.0 [facility] Comment on above: Order Comment: << ON ADMISSION If not done in ED>>No: Do not add to previous draw Performed By: #### 0 0121, 70859, 33888, 84275, 83320 ####[facility] [facility].[address] MAGNESIUM BLOODon 12-18-2016 Magnesium 2.3 mg/dL Normal 1.9-2.7 [facility] Comment on above: Order Comment: << ON ADMISSION If not done in ED>>No: Do not add to previous draw Performed By: #### 0 0121, 53554, 36680, 42531, 63066 ####[facility] [facility] [place] [address], [facility] TYPE AND SCREENon 12-18-2016 ABO INTERPRETATION B Normal [facility] Comment on above: Performed By: #### 0 0121, 32419, 43030, 59502, 07334 ####[facility] [facility] [place] [address], [place] ANTIBODY SCREEN Negative Normal [facility] Comment on above: Performed By: #### 0 0121, 37186, 97950, 78878, 43389 ####[facility] [facility] RH INTERPRETATION Positive Normal [facility] Comment on above: Performed By: #### 0 0121, 90298, 76523, 35113, 10243 ####[facility]3000 [facility].[address] *MRSA/MSSA CULTUREon 017 *MRSA/MSSA CULTURE Clinical Report: (D) Specimen: NASAL SWAB Collected: 12/17/2016 10:30 Status: Final Last Updated: 12/18/2016 09:17 ISO (Final) No Methicillin Resistant Staphylococcus aureus Isolated ISO (Final) Methicillin Sensitive Staphylococcus aureus Isolated Normal [facility] Comment on above: Performed By: #### 0 0121, 30683, 39602, 48856, 49697 ####[facility] [facility].[address] BASIC METABOLIC PANELon 11-29 Calcium 9.8 mg/dL Normal 8.6-10.3 [facility] Comment on above: Order Comment: << ON ADMISSION If not done in ED>>No: Do not add to previous draw Performed By: #### 0 0121, 05149, 60004, 73663, 59200 ####[facility]3000 [facility].[address] Chloride 102 mmol/L Normal 98-107 [facility] Comment on above: Order Comment: << ON ADMISSION If not done in ED>>No: Do not add to previous draw Performed By: #### 0 0121, 53052, 51964, 75331, 52075 ####[facility] [facility] CO2 32 mmol/L High 21-31 [facility] Comment on above: Order Comment: << ON ADMISSION If not done in ED>>No: Do not add to previous draw Performed By: #### 0 0121, 19751, 45379, 61841, 68938 ####[facility] Creatinine 1.10 mg/dL Normal 0.70-1.30 [facility] Comment on above: Order Comment: << ON ADMISSION If not done in ED>>No: Do not add to previous draw Performed By: #### 0 0121, 29137, 79566, 05978, 04122 ####[facility] eGFR (black) mL/min/{1.73_m2} Normal >60 [facility] Comment on above: Order Comment: << ON ADMISSION If not done in ED>>No: Do not add to previous draw Performed By: #### 0 0121, 12413, 45624, 84163, 49912 ####[facility] [facility] eGFR (non-black) mL/min/{1.73_m2} Normal >60 [facility] Comment on above: Order Comment: << ON ADMISSION If not done in ED>>No: Do not add to previous draw Performed By: #### 0 0121, 31204, 89250, 79545, 22556 ####[facility] Glucose mass conc 93 mg/dL Normal 70-100 [facility] Comment on above: Order Comment: << ON ADMISSION If not done in ED>>No: Do not add to previous draw Performed By: #### 0 0121, 55822, 72404, 26102, 40051 ####[facility] [place] [address], [facility] Potassium molar conc 4.9 mmol/L Normal 3.5-5.1 [facility] Comment on above: Order Comment: << ON ADMISSION If not done in ED>>No: Do not add to previous draw Performed By: #### 0 0121, 76492, 77387, 38059, 86801 ####[facility]3000 [facility].[address] Sodium 138 mmol/L Normal 136-145 [facility] Comment on above: Order Comment: << ON ADMISSION If not done in ED>>No: Do not add to previous draw Performed By: #### 0 0121, 82617, 66847, 66385, 58637 ####[facility]3000 [facility].[address] Urea nitrogen 29 mg/dL High 7-25 [facility] Comment on above: Order Comment: << ON ADMISSION If not done in ED>>No: Do not add to previous draw Performed By: #### 0 0121, 24865, 05400, 44275, 66478 ####[facility] CBC W/DIFFon 12-17-2016 Basophils Auto #/vol (Bld) 0.8 % Normal 0.0-2.0 [facility] Comment on above: Order Comment: << ON ADMISSION If not done in ED>>No: Do not add to previous draw Performed By: #### 0 0121, 72148, 53122, 85298, 35665 ####[facility]3000 [facility].[address] Eosinophils/100 leukocytes 5.6 % High 0.0-5.0 [facility] Comment on above: Order Comment: << ON ADMISSION If not done in ED>>No: Do not add to previous draw Performed By: #### 0 0121, 41793, 77967, 93047, 10952 ####[facility]3000 [facility].[address] Erythrocyte distribution width Auto Ratio (RBC) 14.7 % Normal 11.5-16.9 [facility] Comment on above: Order Comment: << ON ADMISSION If not done in ED>>No: Do not add to previous draw Performed By: #### 0 0121, 65011, 10562, 08360, 43252 ####[facility] Erythrocytes (RBC) 4.83 mill/mm3 Normal 4.30-5.90 [facility] Comment on above: Order Comment: << ON ADMISSION If not done in ED>>No: Do not add to previous draw Performed By: #### 0 0121, 76058, 89393, 66917, 84737 ####[facility] Hematocrit (HCT) 49.0 % Normal 39.0-55.0 [facility] Comment on above: Order Comment: << ON ADMISSION If not done in ED>>No: Do not add to previous draw Performed By: #### 0 0121, 67849, 78226, 97102, 40752 ####[facility] [facility] Hemoglobin mass conc (Bld) 15.9 g/dL Normal 13.9-16.3 [facility] Comment on above: Order Comment: << ON ADMISSION If not done in ED>>No: Do not add to previous draw Performed By: #### 0 0121, 90374, 47475, 79049, 05124 ####[facility] [place] [address], [facility] Lymphocytes/100 leukocytes 26.3 % Normal 20.0-40.0 [facility] Comment on above: Order Comment: << ON ADMISSION If not done in ED>>No: Do not add to previous draw Performed By: #### 0 0121, 00268, 18262, 99092, 89361 ####[facility] [place] [address], [facility] MCH 32.9 pg High 24.0-32.0 [facility] Comment on above: Order Comment: << ON ADMISSION If not done in ED>>No: Do not add to previous draw Performed By: #### 0 0121, 91207, 89325, 41008, 54349 ####[facility] MCHC mass conc (RBC) 32.4 g/dL Normal 32.0-36.0 [facility] Comment on above: Order Comment: << ON ADMISSION If not done in ED>>No: Do not add to previous draw Performed By: #### 0 0121, 93288, 11205, 92673, 84791 ####[facility] [facility] MCV 101.4 fL High 80.0-100.0 [facility] Comment on above: Order Comment: << ON ADMISSION If not done in ED>>No: Do not add to previous draw Performed By: #### 0 0121, 78209, 34853, 13021, 04972 ####[facility] [facility] METHOD Normal RBC Morphology Normal [facility] Comment on above: Order Comment: << ON ADMISSION If not done in ED>>No: Do not add to previous draw Performed By: #### 0 0121, 49270, 90690, 58796, 28531 ####[facility] [place] [address], [facility] MONOS 17.4 % High 2-8 [facility] Comment on above: Order Comment: << ON ADMISSION If not done in ED>>No: Do not add to previous draw Performed By: #### 0 0121, 46392, 71664, 58037, 88585 ####[facility] [place] [address], [facility] Neutrophils/100 leukocytes 49.9 % Low 50-70 [facility] Comment on above: Order Comment: << ON ADMISSION If not done in ED>>No: Do not add to previous draw Performed By: #### 0 0121, 74714, 39729, 85165, 67128 ####[facility] [facility] [place] [place] [address], [facility] PLAT CNT 211 Thou/mm3 Normal 100-400 [facility] Comment on above: Order Comment: << ON ADMISSION If not done in ED>>No: Do not add to previous draw Performed By: #### 0 0121, 12872, 36933, 08054, 14674 ####[facility]3000 [facility].[address] WBC (Leukocytes) 10.2 Thou/mm3 High 4.0-10.0 [facility] Comment on above: Order Comment: << ON ADMISSION If not done in ED>>No: Do not add to previous draw Performed By: #### 0 0121, 17805, 96273, 90036, 44080 ####[facility] [facility].[address] Cardiovascular Lab Reporton 12-17-2016 Cardiovascular Lab Report [facility]: [id number] Physician: India Burkett,Department of M.D.Medicine Service Date: 12/16/2016Division of Birthdate: 1955Cardiology Room #: 3AB [id number] CardiovascularServicesUnive [facility] CenterUvuqyqcIzuecr[address] [place], [place] [address]Phone Fax Cardiovascular Laboratory ReportCLINICAL PRESENTATION: Mr. Haywood is a 60-year-old male with past medicalhistory significant for hypertension, who presents with severe shortness ofbreath and chest pain consistent with unstable angina. The patientpreviously had a right heart catheterization on 12/12/2016, which showedseverely elevated pulmonary capillary wedge pressure consistent withdecompensated congestive heart failure.The patient has been diuresed and now presents for coronary angiogram.FINAL IMPRESSION: Severe triple-vessel coronary artery disease.PLAN:1. Consult CT surgery for CABG evaluation.2. Findings discussed with Dr. Tena, Cardiology consult team.3. Medical therapy for CAD as appropriate.4. Medical therapy for acute systolic congestive heart failure as appropriate.PROCEDURES: Coronary angiogram, conscious sedation, 28 minutes.INDICATION: Unstable angina, CCS class 4, acute systolic heart failure.DESCRIPTION OF PROCEDURE: The patient was brought to the cardiaccatheterization lab in a fasting state. Informed consent was obtained. Hewas prepped and draped in usual sterile fashion over the right wrist.Time-out was performed. He was given Versed and fentanyl for sedation. A1% lidocaine was infiltrated over the right radial artery. A 6-FrenchTerumo Glidesheath slender was placed in the right radial artery. Allcatheter exchanges were made over the Magic Torque guidewire. Cathetersused were JL3.5 and JR5. Coronary angiography was performed in multipleorthogonal views using hand injection of contrast.At the end of the procedure, all catheters wires were removed from thebody. The radial sheath was removed and a TR band was applied to obtainhemostasis. There were no apparent complications.TOTAL CONTRAST: 50 mL.TOTAL FLUOROSCOPY TIME: 3 minutes and 4 seconds, 0.9 Gy.TOTAL CONSCIOUS SEDATION TIME: 28 minutes.HEMODYNAMICS: AO: 102/75 (MEP 87).CORONARY ANGIOGRAPHY: Left main coronary artery: The left main is patentand bifurcates into the LAD and the circumflex.Left anterior descending coronary artery: The LAD is a large vessel andgives rise to 2 large diagonal branches. The proximal through mid LAD hasdiffuse calcified 70% stenosis. The 1st diagonal branch is a largebranching vessel, which is almost in a Ramus position and this has ostialand proximal 80% stenosis. The 2nd diagonal branch is also large branchingvessel, which originates from the mid LAD and this also has 80% ostialstenosis.The mid to distal LAD is a large caliber vessel and is widely patent.Left circumflex coronary artery: The circumflex is a moderate-sized vesseland gives rise to 4 obtuse marginal branches. The 2nd obtuse marginalbranch has a proximal 70% stenosis.Right coronary artery: The RCA is a large vessel and is dominant. The midRCA has a heavily calcified 80% stenosis. The distal RCA has 30% stenosis.The PDA and MIRIAM are widely patent.Electronically Signed by:India Burkett M.D. 12/19/2016 11:41 A India Burkett M.D.Date Dict: 12/16/2016/04:25 P/India Burkett M.D.Date Trans: 12/17/2016 01:29 [id number] : Esperanza Eaton M.D. E R Physican...do Not Send [facility] [address] Normal [facility] MAGNESIUM BLOODon 12-17-2016 Magnesium 2.4 mg/dL Normal 1.9-2.7 [facility] Comment on above: Order Comment: << ON ADMISSION If not done in ED>>No: Do not add to previous draw Performed By: #### 0 0121, 26638, 04825, 66128, 52910 ####[facility] [place] [address], [facility] BASIC METABOLIC PANELon 11-28 Calcium 9.5 mg/dL Normal 8.6-10.3 [facility] Comment on above: Order Comment: << ON ADMISSION If not done in ED>>No: Do not add to previous draw Performed By: #### 0 0121, 37398, 91260, 84237, 32037 ####[facility] [place] [address], [facility] Chloride 103 mmol/L Normal 98-107 [facility] Comment on above: Order Comment: << ON ADMISSION If not done in ED>>No: Do not add to previous draw Performed By: #### 0 0121, 28873, 84519, 74588, 90244 ####[facility] [place] [address], [facility] CO2 29 mmol/L Normal 21-31 [facility] Comment on above: Order Comment: << ON ADMISSION If not done in ED>>No: Do not add to previous draw Performed By: #### 0 0121, 89971, 11956, 63998, 33772 ####[facility] [place] [address], [facility] Creatinine 0.98 mg/dL Normal 0.70-1.30 [facility] Comment on above: Order Comment: << ON ADMISSION If not done in ED>>No: Do not add to previous draw Performed By: #### 0 0121, 33280, 11099, 23809, 62603 ####[facility] eGFR (black) mL/min/{1.73_m2} Normal >60 [facility] Comment on above: Order Comment: << ON ADMISSION If not done in ED>>No: Do not add to previous draw Performed By: #### 0 0121, 50250, 55012, 04838, 07079 ####[facility] eGFR (non-black) mL/min/{1.73_m2} Normal >60 Th [facility] Comment on above: Order Comment: << ON ADMISSION If not done in ED>>No: Do not add to previous draw Performed By: #### 0 0121, 31048, 47918, 41442, 72131 ####[facility] [place] [address], [facility] Glucose mass conc 100 mg/dL Normal 70-100 [facility] Comment on above: Order Comment: << ON ADMISSION If not done in ED>>No: Do not add to previous draw Performed By: #### 0 0121, 81052, 94936, 54283, 80673 ####[facility] [place] [address], [facility] Potassium molar conc 4.2 mmol/L Normal 3.5-5.1 [facility] Comment on above: Order Comment: << ON ADMISSION If not done in ED>>No: Do not add to previous draw Performed By: #### 0 0121, 66820, 68845, 18302, 47565 ####[facility] [facility].[address] Sodium 139 mmol/L Normal 136-145 [facility] Comment on above: Order Comment: << ON ADMISSION If not done in ED>>No: Do not add to previous draw Performed By: #### 0 0121, 12490, 43436, 21711, 46932 ####[facility] Urea nitrogen 33 mg/dL High 7-25 [facility] Comment on above: Order Comment: << ON ADMISSION If not done in ED>>No: Do not add to previous draw Performed By: #### 0 0121, 22766, 43323, 17081, 05057 ####[facility] [facility].[address] CBC W/DIFFon 12-16-2016 Basophils Auto #/vol (Bld) 0.5 % Normal 0.0-2.0 [facility] Comment on above: Performed By: #### 0 0121, 71402, 87925, 21556, 34284 ####[facility] [facility].[address] Eosinophils/100 leukocytes 3.8 % Normal 0.0-5.0 [facility] Comment on above: Performed By: #### 0 0121, 86361, 73310, 25256, 21277 ####[facility] [facility] Erythrocyte distribution width Auto Ratio (RBC) 14.5 % Normal 11.5-16.9 [facility] Comment on above: Performed By: #### 0 0121, 42037, 74019, 07452, 61424 ####[facility] Erythrocytes (RBC) 4.70 mill/mm3 Normal 4.30-5.90 [facility] Comment on above: Performed By: #### 0 0121, 98805, 20829, 02190, 51055 ####[facility] [facility] Hematocrit (HCT) 47.4 % Normal 39.0-55.0 [facility] Comment on above: Performed By: #### 0 0121, 15856, 99448, 34007, 53229 ####[facility] [facility].[address] Hemoglobin mass conc (Bld) 15.5 g/dL Normal 13.9-16.3 [facility] Comment on above: Performed By: #### 0 0121, 40873, 99617, 33867, 22601 ####[facility] [facility].[address] Lymphocytes/100 leukocytes 21.5 % Normal 20.0-40.0 [facility] Comment on above: Performed By: #### 0 0121, 29628, 20430, 53352, 49623 ####[facility] [facility].[address] MCH 33.0 pg High 24.0-32.0 [facility] Comment on above: Performed By: #### 0 0121, 39686, 80893, 30410, 01769 ####[facility] [facility].[address] MCHC mass conc (RBC) 32.6 g/dL Normal 32.0-36.0 [facility] Comment on above: Performed By: #### 0 0121, 76902, 68344, 89226, 49373 ####[facility] MCV 101.0 fL High 80.0-100.0 [facility] Comment on above: Performed By: #### 0 0121, 51148, 12087, 42459, 60419 ####[facility] METHOD Normal RBC Morphology Normal [facility] Comment on above: Result Comment: Auto mated differential performedNormal RBC Morphology Performed By: #### 0 0121, 51842, 92909, 41310, 86910 ####[facility] MONOS 16.8 % High 2-8 [facility] Comment on above: Performed By: #### 0 0121, 58483, 44119, 85865, 29317 ####[facility] Neutrophils/100 leukocytes 57.4 % Normal 50-70 [facility] Comment on above: Performed By: #### 0 0121, 67578, 94005, 80718, 72990 ####[facility] PLAT CNT 217 Thou/mm3 Normal 100-400 [facility] Comment on above: Performed By: #### 0 0121, 43028, 04248, 88016, 53180 ####[facility] WBC (Leukocytes) 10.7 Thou/mm3 High 4.0-10.0 [facility] Comment on above: Performed By: #### 0 0121, 49046, 62649, 93680, 02548 ####[facility] [place] [address], [facility] MAGNESIUM BLOODon 12-16-2016 Magnesium 2.3 mg/dL Normal 1.9-2.7 [facility] Comment on above: Order Comment: << ON ADMISSION If not done in ED>>No: Do not add to previous draw Performed By: #### 0 0121, 03321, 72655, 94721, 79688 ####[facility] [place] [address], [facility] BASIC METABOLIC PANELon 11-28 Calcium 9.6 mg/dL Normal 8.6-10.3 [facility] Comment on above: Order Comment: << On admission If not done in ED>>No: Do not add to previous draw Performed By: #### 0 0121, 51055, 66876, 63911, 18471 ####[facility] [place] [address], [facility] Chloride 98 mmol/L Normal 98-107 [facility] Comment on above: Order Comment: << On admission If not done in ED>>No: Do not add to previous draw Performed By: #### 0 0121, 44901, 06708, 50678, 28154 ####[facility] [place] [address], [facility] CO2 36 mmol/L High 21-31 [facility] Comment on above: Order Comment: << On admission If not done in ED>>No: Do not add to previous draw Performed By: #### 0 0121, 13579, 93353, 65010, 95529 ####[facility] [place] [address], [facility] Creatinine 1.23 mg/dL Normal 0.70-1.30 [facility] Comment on above: Order Comment: << On admission If not done in ED>>No: Do not add to previous draw Performed By: #### 0 0121, 80805, 08355, 67747, 35110 ####[facility] [place] [address], [facility] eGFR (black) mL/min/{1.73_m2} Normal >60 [facility] Comment on above: Order Comment: << On admission If not done in ED>>No: Do not add to previous draw Performed By: #### 0 0121, 50726, 49491, 80095, 77365 ####[facility] [place] [address], [facility] eGFR (non-black) 60 ml/min/1.73sq m Abnormal >60 [facility] Comment on above: Order Comment: << On admission If not done in ED>>No: Do not add to previous draw Performed By: #### 0 0121, 34324, 36292, 77979, 96145 ####[facility] [place] [address], [facility] Glucose mass conc 99 mg/dL Normal 70-100 [facility] Comment on above: Order Comment: << On admission If not done in ED>>No: Do not add to previous draw Performed By: #### 0 0121, 98631, 73132, 15737, 41525 ####[facility] [place] [address], [facility] Potassium molar conc 3.7 mmol/L Normal 3.5-5.1 [facility] Comment on above: Order Comment: << On admission If not done in ED>>No: Do not add to previous draw Performed By: #### 0 0121, 82690, 27297, 28469, 77116 ####[facility] [place] [address], [facility] Sodium 142 mmol/L Normal 136-145 [facility] Comment on above: Order Comment: << On admission If not done in ED>>No: Do not add to previous draw Performed By: #### 0 0121, 69218, 24227, 63731, 71265 ####[facility] [place] [address], [facility] Urea nitrogen 34 mg/dL High 7-25 [facility] Comment on above: Order Comment: << On admission If not done in ED>>No: Do not add to previous draw Performed By: #### 0 0121, 65679, 16040, 02028, 20915 ####[facility] [facility] CBC W/DIFFon 12-15-2016 Basophils Auto #/vol (Bld) 0.2 % Normal 0.0-2.0 [facility] Comment on above: Order Comment: << ON ADMISSION If not done in ED>>No: Do not add to previous draw Performed By: #### 0 0121, 92533, 72073, 48807, 45968 ####[facility] [facility] Eosinophils/100 leukocytes 5.6 % High 0.0-5.0 [facility] Comment on above: Order Comment: << ON ADMISSION If not done in ED>>No: Do not add to previous draw Performed By: #### 0 0121, 06230, 33449, 23524, 85420 ####[facility] [facility] Erythrocyte distribution width Auto Ratio (RBC) 14.3 % Normal 11.5-16.9 [facility] Comment on above: Order Comment: << ON ADMISSION If not done in ED>>No: Do not add to previous draw Performed By: #### 0 0121, 64239, 90725, 15736, 66686 ####[facility] [place] [address], [facility] Erythrocytes (RBC) 4.73 mill/mm3 Normal 4.30-5.90 [facility] Comment on above: Order Comment: << ON ADMISSION If not done in ED>>No: Do not add to previous draw Performed By: #### 0 0121, 95471, 30183, 76148, 26131 ####[facility] Hematocrit (HCT) 47.9 % Normal 39.0-55.0 [facility] Comment on above: Order Comment: << ON ADMISSION If not done in ED>>No: Do not add to previous draw Performed By: #### 0 0121, 86922, 03400, 41706, 86378 ####[facility] [facility] Hemoglobin mass conc (Bld) 15.6 g/dL Normal 13.9-16.3 [facility] Comment on above: Order Comment: << ON ADMISSION If not done in ED>>No: Do not add to previous draw Performed By: #### 0 0121, 97442, 00010, 05505, 67538 ####[facility] Lymphocytes/100 leukocytes 17.7 % Low 20.0-40.0 [facility] Comment on above: Order Comment: << ON ADMISSION If not done in ED>>No: Do not add to previous draw Performed By: #### 0 0121, 49201, 06165, 73019, 26645 ####[facility] MCH 32.9 pg High 24.0-32.0 [facility] Comment on above: Order Comment: << ON ADMISSION If not done in ED>>No: Do not add to previous draw Performed By: #### 0 0121, 82049, 51963, 79043, 83281 ####[facility] [facility] MCHC mass conc (RBC) 32.5 g/dL Normal 32.0-36.0 [facility] Comment on above: Order Comment: << ON ADMISSION If not done in ED>>No: Do not add to previous draw Performed By: #### 0 0121, 66560, 27376, 45943, 42928 ####[facility] [place] [address], [facility] MCV 101.2 fL High 80.0-100.0 [facility] Comment on above: Order Comment: << ON ADMISSION If not done in ED>>No: Do not add to previous draw Performed By: #### 0 0121, 97184, 49086, 10413, 78544 ####[facility] [place] [address], [facility] METHOD Normal [facility] Comment on above: Order Comment: << ON ADMISSION If not done in ED>>No: Do not add to previous draw Result Comment: Auto mated differential performedNormal RBC Morphology Performed By: #### 0 0121, 62163, 76707, 80419, 47882 ####[facility] [facility] [place] [address], [facility] MONOS 16.1 % High 2-8 [facility] Comment on above: Order Comment: << ON ADMISSION If not done in ED>>No: Do not add to previous draw Performed By: #### 0 0121, 94646, 98103, 63430, 12993 ####[facility] [facility] [place] [address], [facility] Neutrophils/100 leukocytes 60.4 % Normal 50-70 [facility] Comment on above: Order Comment: << ON ADMISSION If not done in ED>>No: Do not add to previous draw Performed By: #### 0 0121, 69035, 44210, 05105, 48125 ####[facility] [place] [address], [facility] PLAT CNT 207 Thou/mm3 Normal 100-400 [facility] Comment on above: Order Comment: << ON ADMISSION If not done in ED>>No: Do not add to previous draw Performed By: #### 0 0121, 78527, 54136, 47581, 54111 ####[facility] [place] [address], [facility] WBC (Leukocytes) 12.8 Thou/mm3 High 4.0-10.0 [facility] Comment on above: Order Comment: << ON ADMISSION If not done in ED>>No: Do not add to previous draw Performed By: #### 0 0121, 78891, 83835, 50035, 87201 ####[facility] [place] [address], [facility] MAGNESIUM BLOODon 12-15-2016 Magnesium 2.5 mg/dL Normal 1.9-2.7 [facility] Comment on above: Order Comment: << On admission If not done in ED>>No: Do not add to previous draw Performed By: #### 0 0121, 17493, 31519, 99299, 88141 ####[facility] BASIC METABOLIC PANELon 11-28 Calcium 9.6 mg/dL Normal 8.6-10.3 [facility] Comment on above: Order Comment: << On admission If not done in ED>>No: Do not add to previous draw Performed By: #### 0 0121, 89277, 01598, 09790, 91552 ####[facility] Chloride 97 mmol/L Low 98-107 [facility] Comment on above: Order Comment: << On admission If not done in ED>>No: Do not add to previous draw Performed By: #### 0 0121, 82906, 62006, 88369, 09155 ####[facility] [place] [address], [facility] CO2 36 mmol/L High 21-31 [facility] Comment on above: Order Comment: << On admission If not done in ED>>No: Do not add to previous draw Performed By: #### 0 0121, 58050, 45904, 74154, 14167 ####[facility] Creatinine 1.35 mg/dL High 0.70-1.30 [facility] Comment on above: Order Comment: << On admission If not done in ED>>No: Do not add to previous draw Performed By: #### 0 0121, 83867, 54567, 16363, 46379 ####[facility] eGFR (black) mL/min/{1.73_m2} Normal >60 [facility] Comment on above: Order Comment: << On admission If not done in ED>>No: Do not add to previous draw Performed By: #### 0 0121, 95055, 53482, 84714, 28140 ####[facility] [facility] eGFR (non-black) 54 ml/min/1.73sq m Abnormal >60 [facility] Comment on above: Order Comment: << On admission If not done in ED>>No: Do not add to previous draw Performed By: #### 0 0121, 10500, 94358, 99939, 50373 ####[facility] Glucose mass conc 99 mg/dL Normal 70-100 [facility] Comment on above: Order Comment: << On admission If not done in ED>>No: Do not add to previous draw Performed By: #### 0 0121, 45967, 03667, 03751, 52522 ####[facility] [place] [address], [facility] Potassium molar conc 4.0 mmol/L Normal 3.5-5.1 [facility] Comment on above: Order Comment: << On admission If not done in ED>>No: Do not add to previous draw Performed By: #### 0 0121, 30665, 24621, 79455, 19266 ####[facility] Sodium 142 mmol/L Normal 136-145 [facility] Comment on above: Order Comment: << On admission If not done in ED>>No: Do not add to previous draw Performed By: #### 0 0121, 11774, 81805, 90194, 39681 ####[facility] Urea nitrogen 28 mg/dL High 7-25 [facility] Comment on above: Order Comment: << On admission If not done in ED>>No: Do not add to previous draw Performed By: #### 0 0121, 66495, 48426, 21093, 46766 ####[address] CBC W/DIFFon 12-14-2016 Basophils Auto #/vol (Bld) 0.4 % Normal 0.0-2.0 [facility] Comment on above: Order Comment: << On admission If not done in ED>>No: Do not add to previous draw Performed By: #### 0 0121, 04069, 42178, 00287, 93279 ####[address] Eosinophils/100 leukocytes 1.9 % Normal 0.0-5.0 [facility] Comment on above: Order Comment: << On admission If not done in ED>>No: Do not add to previous draw Performed By: #### 0 0121, 62652, 65793, 17009, 18947 ####[facility] Erythrocyte distribution width Auto Ratio (RBC) 15.0 % Normal 11.5-16.9 [facility] Comment on above: Order Comment: << On admission If not done in ED>>No: Do not add to previous draw Performed By: #### 0 0121, 27286, 05620, 30413, 38425 ####[id number] Erythrocytes (RBC) 4.72 mill/mm3 Normal 4.30-5.90 [facility] Comment on above: Order Comment: << On admission If not done in ED>>No: Do not add to previous draw Performed By: #### 0 0121, 45464, 14542, 24967, 55714 ####[facility] Hematocrit (HCT) 47.6 % Normal 39.0-55.0 [facility] Comment on above: Order Comment: << On admission If not done in ED>>No: Do not add to previous draw Performed By: #### 0 0121, 60469, 79791, 92808, 61534 ####[facility] Hemoglobin mass conc (Bld) 15.6 g/dL Normal 13.9-16.3 [facility] Comment on above: Order Comment: << On admission If not done in ED>>No: Do not add to previous draw Performed By: #### 0 0121, 00913, 49314, 53902, 95179 ####[facility] Lymphocytes/100 leukocytes 18.8 % Low 20.0-40.0 [facility] Comment on above: Order Comment: << On admission If not done in ED>>No: Do not add to previous draw Performed By: #### 0 0121, 01128, 61935, 39968, 52749 ####[facility] MCH 33.1 pg High 24.0-32.0 [facility] Comment on above: Order Comment: << On admission If not done in ED>>No: Do not add to previous draw Performed By: #### 0 0121, 83030, 95450, 52179, 29041 ####[facility] [place] [address], [facility] MCHC mass conc (RBC) 32.8 g/dL Normal 32.0-36.0 [facility] Comment on above: Order Comment: << On admission If not done in ED>>No: Do not add to previous draw Performed By: #### 0 0121, 24398, 75707, 37855, 61137 ####[facility] [facility].[address] MCV 100.9 fL High 80.0-100.0 [facility] Comment on above: Order Comment: << On admission If not done in ED>>No: Do not add to previous draw Performed By: #### 0 0121, 56332, 25823, 64302, 36812 ####[facility] [place] [address], [facility] METHOD Normal [facility] Comment on above: Order Comment: << On admission If not done in ED>>No: Do not add to previous draw Result Comment: Auto mated differential performedNormal RBC Morphology Performed By: #### 0 0121, 16916, 76789, 96358, 61251 ####[facility]3000 [facility].[address] MONOS 16.9 % High 2-8 [facility] Comment on above: Order Comment: << On admission If not done in ED>>No: Do not add to previous draw Performed By: #### 0 0121, 61240, 16308, 18396, 24863 ####[facility]3000 [place] [address], [facility] Neutrophils/100 leukocytes 62.0 % Normal 50-70 [facility] Comment on above: Order Comment: << On admission If not done in ED>>No: Do not add to previous draw Performed By: #### 0 0121, 43562, 23114, 48706, 03013 ####[facility] PLAT CNT 208 Thou/mm3 Normal 100-400 [facility] Comment on above: Order Comment: << On admission If not done in ED>>No: Do not add to previous draw Performed By: #### 0 0121, 78228, 91865, 16415, 47823 ####[facility] WBC (Leukocytes) 12.1 Thou/mm3 High 4.0-10.0 [facility] Comment on above: Order Comment: << On admission If not done in ED>>No: Do not add to previous draw Performed By: #### 0 0121, 23971, 59156, 41289, 56061 ####[facility] [facility] MAGNESIUM BLOODon 12-14-2016 Magnesium 2.2 mg/dL Normal 1.9-2.7 [facility] Comment on above: Order Comment: << On admission If not done in ED>>No: Do not add to previous draw Performed By: #### 0 0121, 55081, 03558, 66816, 23763 ####[facility]3000 [facility].[address] BASIC METABOLIC PANELon 11-28 Calcium 9.4 mg/dL Normal 8.6-10.3 [facility] Comment on above: Order Comment: << On admission If not done in ED>>No: Do not add to previous draw Performed By: #### 0 0121, 53144, 99137, 97200, 92389 ####[facility] [facility] Chloride 96 mmol/L Low 98-107 [facility] Comment on above: Order Comment: << On admission If not done in ED>>No: Do not add to previous draw Performed By: #### 0 0121, 58816, 85731, 12976, 78145 ####[facility] CO2 33 mmol/L High 21-31 [facility] Comment on above: Order Comment: << On admission If not done in ED>>No: Do not add to previous draw Performed By: #### 0 0121, 11099, 72435, 01531, 39524 ####[facility] Creatinine 1.31 mg/dL High 0.70-1.30 [facility] Comment on above: Order Comment: << On admission If not done in ED>>No: Do not add to previous draw Performed By: #### 0 0121, 65907, 42421, 78691, 40444 ####[facility] [facility] eGFR (black) mL/min/{1.73_m2} Normal >60 [facility] Comment on above: Order Comment: << On admission If not done in ED>>No: Do not add to previous draw Performed By: #### 0 0121, 67841, 40214, 70195, 39789 ####[facility] [facility] eGFR (non-black) 56 ml/min/1.73sq m Abnormal >60 [facility] Comment on above: Order Comment: << On admission If not done in ED>>No: Do not add to previous draw Performed By: #### 0 0121, 45593, 39401, 91916, 72362 ####[facility] Glucose mass conc 138 mg/dL High 70-100 [facility] Comment on above: Order Comment: << On admission If not done in ED>>No: Do not add to previous draw Performed By: #### 0 0121, 72271, 67964, 57944, 57014 ####[facility] [place] [address], [facility] Potassium molar conc 3.9 mmol/L Normal 3.5-5.1 [facility] Comment on above: Order Comment: << On admission If not done in ED>>No: Do not add to previous draw Performed By: #### 0 0121, 84281, 81933, 51921, 82786 ####[facility] [place] [address], [facility] Sodium 140 mmol/L Normal 136-145 [facility] Comment on above: Order Comment: << On admission If not done in ED>>No: Do not add to previous draw Performed By: #### 0 0121, 04283, 53148, 60650, 42222 ####[facility] Urea nitrogen 27 mg/dL High 7-25 [facility] Comment on above: Order Comment: << On admission If not done in ED>>No: Do not add to previous draw Performed By: #### 0 0121, 80657, 08768, 46037, 46031 ####[facility] [place] [address], [facility] Chloride 97 mmol/L Low 98-107 [facility] Comment on above: Order Comment: << On admission If not done in ED>>No: Do not add to previous draw Performed By: #### 0 0121, 39191, 07994, 44109, 22440 ####[facility] [place] [address], [facility] CO2 34 mmol/L High 21-31 [facility] Comment on above: Order Comment: << On admission If not done in ED>>No: Do not add to previous draw Performed By: #### 0 0121, 89934, 05689, 71902, 97864 ####[facility] Creatinine 0.95 mg/dL Normal 0.70-1.30 [facility] Comment on above: Order Comment: << On admission If not done in ED>>No: Do not add to previous draw Performed By: #### 0 0121, 40244, 85615, 34673, 59611 ####[facility] eGFR (non-black) mL/min/{1.73_m2} Normal >60 [facility] Comment on above: Order Comment: << On admission If not done in ED>>No: Do not add to previous draw Performed By: #### 0 0121, 27380, 39080, 11952, 72567 ####[facility] Glucose mass conc 102 mg/dL High 70-100 [facility] Comment on above: Order Comment: << On admission If not done in ED>>No: Do not add to previous draw Performed By: #### 0 0121, 39816, 11092, 70887, 80361 ####[facility] Potassium molar conc 3.6 mmol/L Normal 3.5-5.1 [facility] Comment on above: Order Comment: << On admission If not done in ED>>No: Do not add to previous draw Performed By: #### 0 0121, 03140, 61581, 03573, 46688 ####[facility] Sodium 141 mmol/L Normal 136-145 [facility] Comment on above: Order Comment: << On admission If not done in ED>>No: Do not add to previous draw Performed By: #### 0 0121, 98228, 45478, 68013, 98951 ####[facility] Urea nitrogen 20 mg/dL Normal 7-25 [facility] Comment on above: Order Comment: << On admission If not done in ED>>No: Do not add to previous draw Performed By: #### 0 0121, 45433, 10280, 48181, 00433 ####[facility]3000 [facility].[address] CBC W/DIFFon 12-13-2016 Basophils Auto #/vol (Bld) 0.5 % Normal 0.0-2.0 [facility] Comment on above: Order Comment: No: D o not add to previous draw Performed By: #### 5 0103 ####[address] Eosinophils/100 leukocytes 1.5 % Normal 0.0-5.0 [facility] Comment on above: Order Comment: No: D o not add to previous draw Performed By: #### 5 0103 ####[facility]3000 [facility].[address] Erythrocyte distribution width Auto Ratio (RBC) 14.6 % Normal 11.5-16.9 [facility] Comment on above: Order Comment: No: D o not add to previous draw Performed By: #### 5 0103 ####[facility]3000 [facility].[address] Erythrocytes (RBC) 4.51 mill/mm3 Normal 4.30-5.90 [facility] Comment on above: Order Comment: No: D o not add to previous draw Performed By: #### 5 0103 ####[facility] [place] [address].[address] Hematocrit (HCT) 45.3 % Normal 39.0-55.0 [facility] Comment on above: Order Comment: No: D o not add to previous draw Performed By: #### 5 0103 ####[facility] Hemoglobin mass conc (Bld) 15.0 g/dL Normal 13.9-16.3 [facility] Comment on above: Order Comment: No: D o not add to previous draw Performed By: #### 5 0103 ####[facility] [place] [address], [facility] Lymphocytes/100 leukocytes 15.3 % Low 20.0-40.0 [facility] Comment on above: Order Comment: No: D o not add to previous draw Performed By: #### 5 0103 ####[facility] [facility] MCH 33.3 pg High 24.0-32.0 [facility] Comment on above: Order Comment: No: D o not add to previous draw Performed By: #### 5 0103 ####[facility] MCHC mass conc (RBC) 33.1 g/dL Normal 32.0-36.0 [facility] Comment on above: Order Comment: No: D o not add to previous draw Performed By: #### 5 0103 ####[facility]3000 [facility].[address] MCV 100.6 fL High 80.0-100.0 [facility] Comment on above: Order Comment: No: D o not add to previous draw Performed By: #### 5 0103 ####[facility] [place] [address], [facility] METHOD Normal [facility] Comment on above: Order Comment: No: D o not add to previous draw Result Comment: Auto mated differential performedNormal RBC Morphology Performed By: #### 5 0103 ####[facility] [place] [address], [facility] MONOS 14.8 % High 2-8 [facility] Comment on above: Order Comment: No: D o not add to previous draw Performed By: #### 5 0103 ####[facility] [place] [address], [facility] Neutrophils/100 leukocytes 67.9 % Normal 50-70 [facility] Comment on above: Order Comment: No: D o not add to previous draw Performed By: #### 5 0103 ####[facility] [place] [address], [facility] PLAT CNT 207 Thou/mm3 Normal 100-400 [facility] Comment on above: Order Comment: No: D o not add to previous draw Performed By: #### 5 0103 ####[facility] [place] [address], [facility] WBC (Leukocytes) 11.3 Thou/mm3 High 4.0-10.0 [facility] Comment on above: Order Comment: No: D o not add to previous draw Performed By: #### 5 0103 ####[facility] [place] [address], [facility] COOXIMETRYon 12-13-2016 COHB 3 % Normal [facility] Comment on above: Performed By: #### 0 0121, 40617, 28417, 83531, 21356 ####[facility] [facility] METHB 0 % Normal [facility] Comment on above: Performed By: #### 0 0121, 29347, 31394, 86566, 72782 ####[facility] [place] [address], [facility] O2 saturation 68.8 % Normal 60.0-80.0 [facility] Comment on above: Performed By: #### 0 0121, 62903, 41889, 83524, 60811 ####[facility]3000 [facility].[address] THB 14.7 g/dL Normal 13.9-16.3 [facility] Comment on above: Performed By: #### 0 0121, 58060, 95565, 47060, 33688 ####[facility]3000 [facility].[address] Cardiovascular Lab Reporton 12-13-2016 Cardiovascular Lab Report [facility] [id number] Physician: Ryan Schaefer M.D.Medicine Service Date: 12/12/2016Division of Birthdate: 1955Cardiology Room #: 3AB [id number] CardiovascularServicesUnive [facility] CenterPlclnqiZrxhjp[address] [place], [place] [address]Vjehw Fax Cardiovascular Laboratory ReportINDICATION:Torsten Haywood is a 60-year-old man, who was admitted with advancedsystolic heart failure. He was referred for right heart cardiaccatheterization.PROC EDURES:1. Access into right internal jugular vein under ultrasound guidance.2. Right heart catheterization.3. Placement of a COMPOUND MIXER [place]-Oscar catheter.METHOD:Procedure was explained to the patient with risks and benefits. He signedinformed consent. He was brought to physical laboratory assistant in a fasting state. [facility] neck area was prepped and draped in usual fashion. [facility] vein was obtained using ultrasound guidance andmicropuncture technique, a 6-Syrian x 11 cm sheath was placed. A 6-FrenchBerman catheter was used for right heart catheterization with measurementof pressures and calculation of cardiac output using the estimated Fickmethod. Correa catheter was removed. The access sheath was upsized to a9-Syrian x 11 cm introducer sheath, which was secured in place. A CCOSwan-Oscar catheter was advanced and the tip was placed lying in the distalright pulmonary artery. This was secured in place. The patient toleratedthe procedure well. He was transferred back to his room.Total fluoro time 2.37 minutes.HEMODYNAMICS:RA 31.RV 74/31, 36.PA 74/44, mean 57.Pulmonary capillary wedge pressure 49.Blood pressure 147/105.Cardiac output 4.29, cardiac index 1.76.PA sat 53%, AO sat 93%SUMMARY OF THE FINDINGS:1. Severely elevated filling pressures.2. Severe pulmonary hypertension.3. Reduced cardiac output and cardiac index.RECOMMENDATIONS:Diure sis and afterload reduction.Electronically Signed by:Ryan Tena M.D. 12/28/2016 08:05 A Ryan Tena M.D.Date Dict: 12/12/2016/04:52 P/Ryan Tena M.D.Date Trans: 12/13/2016 06:58 A/[place]_JN:[id number] : Esperanza Eaton M.D. [facility]...do Not Send [address] [place] [address] Normal [facility] LIPID PROFILEon 12-13-2016 Cholesterol 148 mg/dL Normal 120-200 [facility] Comment on above: Result Comment: CHOL ESTEROL REFERENCE RANGE:20 YEARS AND OLDER CARDIOVASCULAR RISKLess than 200 mg/dl Low Sold615 to 239 mg/dl Borderline Xmzy655 mg/dl and greater High Risk Performed By: #### 0 0121, 21916, 62098, 93595, 81843 ####[facility] Cholesterol to HDL Ratio 5.1 {ratio} High .0-4.5 [facility] Comment on above: Performed By: #### 0 0121, 40177, 80838, 78891, 65664 ####[facility] HDL Cholesterol 29 mg/dL Normal 23-92 [facility] Comment on above: Result Comment: Slig ht variation in normal range could be due to gender and/or age.HDL CHOLESTEROL REFERENCE RANGE:20 years and older Cardiovascular Risk> or =60 mg/dL Owrnvktzy21 TO 59 mg/dL Low Risk<40 mg/dL High Risk Performed By: #### 0 0121, 84032, 41592, 93665, 81000 ####[facility] LDL Cholesterol 101 mg/dL Normal 0-130 [facility] Comment on above: Result Comment: LDL IS A CALCULATIONLDL IS ONLY VALID IF THE TRIG IS LESS THAN 400. Performed By: #### 0 0121, 22237, 04416, 43747, 51499 ####[facility] NON-HDL CHOLESTEROL 119 mg/dL Normal [facility] Comment on above: Performed By: #### 0 0121, 53195, 55202, 68795, 02779 ####[facility] Triglyceride 92 mg/dL Normal 40-149 [facility] Comment on above: Result Comment: TRIG LYCERIDE REFERENCE RANGE:20 YEARS AND OLDER CARDIOVASCULAR RISKLESS THAN 150 mg/dl LOW FSLU224 TO 199 mg/dl BORDERLINE [id number] mg/dl AND GREATER HIGH RISK Performed By: #### 0 0121, 25698, 64956, 34388, 89055 ####[facility] VLDL CHOL 18 mg/dL Normal 0-40 [facility] Comment on above: Performed By: #### 0 0121, 54900, 55608, 25483, 70109 ####[facility] MAGNESIUM BLOODon 12-13-2016 Magnesium 2.0 mg/dL Normal 1.9-2.7 [facility] Comment on above: Order Comment: << On admission If not done in ED>>No: Do not add to previous draw Performed By: #### 0 0121, 34239, 95048, 46414, 57013 ####[facility] [place] [address], [facility] CBC W/DIFFon 12-12-2016 Basophils Auto #/vol (Bld) 0.0 % Normal 0.0-2.0 [facility] Comment on above: Order Comment: If no t done in EDNo: Do not add to previous draw Performed By: #### 5 0103 ####[facility] [place] [address], [facility] Eosinophils/100 leukocytes 1.0 % Normal 0.0-5.0 [facility] Comment on above: Order Comment: If no t done in EDNo: Do not add to previous draw Performed By: #### 5 0103 ####[facility] Erythrocyte distribution width Auto Ratio (RBC) 14.2 % Normal 11.5-16.9 [facility] Comment on above: Order Comment: If no t done in EDNo: Do not add to previous draw Performed By: #### 5 0103 ####[facility] [place] [address], [facility] Erythrocytes (RBC) 4.17 mill/mm3 Low 4.30-5.90 [facility] Comment on above: Order Comment: If no t done in EDNo: Do not add to previous draw Performed By: #### 5 0103 ####[facility] [place] [address], [facility] Hematocrit (HCT) 41.7 % Normal 39.0-55.0 [facility] Comment on above: Order Comment: If no t done in EDNo: Do not add to previous draw Performed By: #### 5 0103 ####[facility] [place] [address], [facility] Hemoglobin mass conc (Bld) 13.9 g/dL Normal 13.9-16.3 [facility] Comment on above: Order Comment: If no t done in EDNo: Do not add to previous draw Performed By: #### 5 0103 ####[facility] Lymphocytes/100 leukocytes 16.0 % Low 20.0-40.0 [facility] Comment on above: Order Comment: If no t done in EDNo: Do not add to previous draw Performed By: #### 5 0103 ####[facility] MCH 33.2 pg High 24.0-32.0 [facility] Comment on above: Order Comment: If no t done in EDNo: Do not add to previous draw Performed By: #### 5 0103 ####[facility]3000 [facility].[address] MCHC mass conc (RBC) 33.3 g/dL Normal 32.0-36.0 [facility] Comment on above: Order Comment: If no t done in EDNo: Do not add to previous draw Performed By: #### 5 0103 ####[facility]3000 [facility].[address] MCV 100.0 fL Normal 80.0-100.0 [facility] Comment on above: Order Comment: If no t done in EDNo: Do not add to previous draw Performed By: #### 5 0103 ####[facility]3000 [facility].[address] METHOD Manual blood smear examination performed Normal [facility] Comment on above: Order Comment: If no t done in EDNo: Do not add to previous draw Performed By: #### 5 0103 ####[facility]3000 [facility].[address] MONOS 13.0 % High 2-8 [facility] Comment on above: Order Comment: If no t done in EDNo: Do not add to previous draw Performed By: #### 5 3 ####[facility] OTHER 1 NORMAL RED CELL MORP HOLOGY SEEN Normal [facility] Comment on above: Order Comment: If no t done in EDNo: Do not add to previous draw Performed By: #### 5 0103 ####[facility] [place] [address], [facility] PLAT CNT 203 Thou/mm3 Normal 100-400 [facility] Comment on above: Order Comment: If no t done in EDNo: Do not add to previous draw Performed By: #### 5 0103 ####[facility] [place] [address], [facility] SEGS 70.0 % Normal 50-70 [facility] Comment on above: Order Comment: If no t done in EDNo: Do not add to previous draw Performed By: #### 5 0103 ####[facility] WBC (Leukocytes) 11.0 Thou/mm3 High 4.0-10.0 [facility] Comment on above: Order Comment: If no t done in EDNo: Do not add to previous draw Performed By: #### 5 0103 ####[facility] COMP METABOLIC PANELon 12-12 Alanine aminotransferase (ALT) 33 U/L Normal 7-52 [facility] Comment on above: Order Comment: << On admission If not done in ED>>No: Do not add to previous draw Performed By: #### 0 0121, 36793, 12973, 48194, 48265 ####[facility] Albumin 3.7 g/dL Normal 3.5-5.7 [facility] Comment on above: Order Comment: << On admission If not done in ED>>No: Do not add to previous draw Performed By: #### 0 0121, 09725, 56779, 93866, 60146 ####[facility] [facility] ALKALINE PHOSPH 46 IU/L Normal 34-104 [facility] Comment on above: Order Comment: << On admission If not done in ED>>No: Do not add to previous draw Performed By: #### 0 0121, 85892, 26070, 66505, 55227 ####[facility] [facility] Aspartate aminotransferase (AST) 30 U/L Normal 13-39 [facility] Comment on above: Order Comment: << On admission If not done in ED>>No: Do not add to previous draw Performed By: #### 0 0121, 64533, 37382, 37523, 66726 ####[facility]3000 [facility].[address] Bilirubin (total) 1.4 mg/dL High 0.3-1.0 [facility] Comment on above: Order Comment: << On admission If not done in ED>>No: Do not add to previous draw Performed By: #### 0 0121, 21352, 20312, 34805, 10513 ####[facility]3000 [facility].[address] Calcium 8.9 mg/dL Normal 8.6-10.3 [facility] Comment on above: Order Comment: << On admission If not done in ED>>No: Do not add to previous draw Performed By: #### 0 0121, 53739, 78406, 11520, 62743 ####[facility] [place] [address], [facility] Chloride 104 mmol/L Normal 98-107 [facility] Comment on above: Order Comment: << On admission If not done in ED>>No: Do not add to previous draw Performed By: #### 0 0121, 39605, 76291, 77862, 43544 ####[facility] [place] [address], [facility] CO2 26 mmol/L Normal 21-31 [facility] Comment on above: Order Comment: << On admission If not done in ED>>No: Do not add to previous draw Performed By: #### 0 0121, 65398, 04174, 66084, 47889 ####[facility] Creatinine 0.87 mg/dL Normal 0.70-1.30 The The [facility] Comment on above: Order Comment: << On admission If not done in ED>>No: Do not add to previous draw Performed By: #### 0 0121, 98151, 18931, 95066, 63845 ####[facility] [facility] eGFR (black) mL/min/{1.73_m2} Normal >60 [facility] Comment on above: Order Comment: << On admission If not done in ED>>No: Do not add to previous draw Performed By: #### 0 0121, 05500, 01638, 48419, 65182 ####[facility] [facility] eGFR (non-black) mL/min/{1.73_m2} Normal >60 Th e [facility] Comment on above: Order Comment: << On admission If not done in ED>>No: Do not add to previous draw Performed By: #### 0 0121, 62690, 66164, 34079, 43879 ####[facility] [facility] Glucose mass conc 100 mg/dL Normal 70-100 [facility] Comment on above: Order Comment: << On admission If not done in ED>>No: Do not add to previous draw Performed By: #### 0 0121, 05804, 23451, 06418, 21207 ####[facility] [place] [address], [facility] Potassium molar conc 4.1 mmol/L Normal 3.5-5.1 [facility] Comment on above: Order Comment: << On admission If not done in ED>>No: Do not add to previous draw Performed By: #### 0 0121, 65626, 05167, 30048, 71318 ####[facility] [place] [address], [facility] Protein 6.3 g/dL Normal 6.0-8.3 [facility] Comment on above: Order Comment: << On admission If not done in ED>>No: Do not add to previous draw Performed By: #### 0 0121, 79985, 94353, 95799, 72237 ####[facility] [facility] Sodium 141 mmol/L Normal 136-145 [facility] Comment on above: Order Comment: << On admission If not done in ED>>No: Do not add to previous draw Performed By: #### 0 0121, 63771, 33406, 50187, 04250 ####[facility] [place] [address], [facility] Urea nitrogen 19 mg/dL Normal 7-25 [facility] Comment on above: Order Comment: << On admission If not done in ED>>No: Do not add to previous draw Performed By: #### 0 0121, 27606, 21996, 44398, 11975 ####[facility] [place] [address], [facility] COOXIMETRYon 12-12-2016 COHB 2 % Normal [facility] Comment on above: Order Comment: RESUL TS CHECKED AND CALLED. ACCURATELY READ BACK BY JOSUÉ YUSUF Performed By: #### 7 0207 ####[facility]3000 [facility].[address] METHB 0 % Normal [facility] Comment on above: Order Comment: RESUL TS CHECKED AND CALLED. ACCURATELY READ BACK BY JOSUÉ YUSUF Performed By: #### 7 0207 ####[facility]3000 [facility].[address] O2 saturation 51.2 % Low 60.0-80.0 [facility] Comment on above: Order Comment: RESUL TS CHECKED AND CALLED. ACCURATELY READ BACK BY JOSUÉ YUSUF Performed By: #### 7 0207 ####[facility] THB 13.2 g/dL Low 13.9-16.3 [facility] Comment on above: Order Comment: RESUL TS CHECKED AND CALLED. ACCURATELY READ BACK BY JOSUÉ YUSUF Performed By: #### 7 0207 ####[facility] FREE T4on 12-12-2016 Thyroxine (T4) free 1.14 ng/dL Normal 0.71-1.85 [facility] Comment on above: Order Comment: If no t done in EDNo: Do not add to previous draw Performed By: #### 0 0121, 93049, 18975, 85723, 81736 ####[facility] [place] [address], [facility] HEMOGLOBIN A1Con 12-12-2016 Glucose mass conc 117 mg/dL Normal 70-126 [facility] Comment on above: Order Comment: If no t done in EDNo: Do not add to previous draw Performed By: #### 4 6447 ####[facility] Hemoglobin A1c/Hemoglobin.tota l mass fraction (Bld) 5.7 % Normal 4.0-6.0 [facility] Comment on above: Order Comment: If no t done in EDNo: Do not add to previous draw Performed By: #### 4 6447 ####[facility] [place] [address], [facility] MAGNESIUM BLOODon 12-12-2016 Magnesium 1.9 mg/dL Normal 1.9-2.7 [facility] Comment on above: Order Comment: << ON ADMISSION If not done in ED>>No: Do not add to previous draw Performed By: #### 0 0121, 34258, 92359, 33698, 37676 ####[facility] [place] [address], [facility] PORTABLE CHEST 1 VIEWon 11-28 PORTABLE CHEST 1 VIEW [facility] [address] [id number] Patient Name: TORSTEN HAYWOOD : 1955Sex: MAge: Race: WhiteMRN: [id number]. Location: [id number] Status: IVisit #: [id number] Date: 12/12/2016 6:15:00 AMCompleted Date: 12/12/2016 06:47 AMRequesting Provider: EMERSON SETHI Attending Provider: BLAKE LUCAS AM Report Copy To: Signs & Symptoms: Chest PainHistory: Patient history not availableComments: R/O CHFExam: PORTABLE CHEST 1 VIEWAccession #: [id number] PORTABLE CHEST 1 VIEW 12/12/2016 6:47 AM EDT SIGNS AND SYMPTOMS: Chest Pain TECHNOLOGIST COMMENTS: chest pain QUESTION FOR THE RADIOLOGIST: R/O CHF PROTOCOL: AP(PA) view was obtained. COMPARISON: No prior FINDINGS: Severe cardiomegaly involving all cardiac chambers. Small left pleural effusion. Increased interstitial density consistent with pulmonary edema. Pulmonary venous congestion. Mild lingular atelectasis. Findings most consistent with congestive heart failure. Bony thorax unremarkable. IMPRESSION: * Cardiac megaly, pulmonary venous congestion, pulmonary edema findings consistent with congestive heart failure* Mild lingular atelectasis Electronically signed by:Jose Medina. Transcribed by: [email or web address], User Resident: Electronically Signed by: JOSE MEDINA @ 12/12/2016 12:35 PM Normal [facility] Comment on above: Order Comment: R/O C HF TROPONIN-Ion 12-12-2016 Troponin I.cardiac mass conc 0.08 ng/mL High 0.00-0.04 [facility] Comment on above: Result Comment: REFE RENCE RANGES: 0.00 - 0.04 ng/ml NORMAL 0.05 - 0.50 ng/ml INDETERMINATE > 0.50 ng/ml CONSISTENT WITH AN M.I. Performed By: #### 0 0121, 17557, 01113, 58858, 84803 ####[facility] TSHon 12-12-2016 Thyroid stimulating hormone (TSH) 2.59 MICRO-IU/ML Normal 0.34-5.60 [facility] Comment on above: Order Comment: If no t done in EDNo: Do not add to previous draw Performed By: #### 0 0121, 97916, 44944, 06592, 10220 ####[facility] Vital Signs Date Time Vital Sign Value Performing Clinician Facility 02-11-2024 10:17050 Body height 182.9 cm Pfo 1 [facility] 02-11-2024 10:17-0500 Body mass index (BMI) [Ratio] 29.13 kg/m2 Pfo 1 [facility] 02-11-2024 10:17-0500 Body temperature 97.9 [degF] Pfo 1 [facility] 02-11-2024 10:17-0500 Body weight 97.43 kg Pfo 1 [facility] 02-11-2024 10:17-0500 Diastolic blood pressure 69 mm[Hg] Pfo 1 [facility] 02-11-2024 10:17-0500 Heart rate 101 /min Pfo 1 [facility] 02-11-2024 10:17-0500 Respiratory rate 18 /min Pfo 1 [facility] 02-11-2024 10:17-0500 SaO2% (BldA) [Mass fraction] 96 % Pfo 1 [facility] 02-11-2024 10:17-0500 Systolic blood pressure 108 mm[Hg] Pfo 1 [facility] 01-28-2024 10:10-0400 Body height 182.9 cm Pfo 1 [facility] 01-28-2024 10:10-0400 Body mass index (BMI) [Ratio] 28.21 kg/m2 Pfo 1 [facility] 01-28-2024 10:10-0400 Body temperature 97.81 [degF] Pfo 1 [facility] 01-28-2024 10:10-0400 Body weight 94.35 kg Pfo 1 [facility] 01-28-2024 10:10-0400 Diastolic blood pressure 74 mm[Hg] Pfo 1 [facility] 01-28-2024 10:10-0400 Heart rate 91 /min Pfo 1 [facility] 01-28-2024 10:10-0400 Respiratory rate 18 /min Pfo 1 [facility] 01-28-2024 10:10-0400 SaO2% (BldA) [Mass fraction] 96 % Pfo 1 [facility] 01-28-2024 10:10-0400 Systolic blood pressure 117 mm[Hg] Pfo 1 [facility] 01-15-2024 11:07-0400 Body height 182.9 cm Pfo 1 [facility] 01-15-2024 11:07-0400 Body mass index (BMI) [Ratio] 28.47 kg/m2 Pfo 1 [facility] 01-15-2024 11:07-0400 Body temperature 97.59 [degF] Pfo 1 [facility] 01-15-2024 11:07-0400 Body weight 95.25 kg Pfo 1 [facility] 01-15-2024 11:07-0400 Diastolic blood pressure 79 mm[Hg] Pfo 1 [facility] 01-15-2024 11:07-0400 Heart rate 85 /min Pfo 1 [facility] 01-15-2024 11:07-0400 SaO2% (BldA) [Mass fraction] 98 % Pfo 1 [facility] 01-15-2024 11:07-0400 Systolic blood pressure 119 mm[Hg] Pfo 1 [facility] 01-14-2024 09:28-0400 Body height 182.9 cm Jacobo Prado MD Work Phone: [facility] 01-14-2024 09:28-0400 Body mass index (BMI) [Ratio] 28.28 kg/m2 Jacobo Prado MD Work Phone: [facility] 01-14-2024 09:28-0400 Body temperature 96.1 [degF] Jacobo Prado MD Work Phone: [facility] 01-14-2024 09:28-0400 Body weight 94.62 kg Jacobo Prado MD Work Phone: [facility] 01-14-2024 09:28-0400 Diastolic blood pressure 87 mm[Hg] Jacobo Prado MD Work Phone: [facility] 01-14-2024 09:28-0400 Heart rate 93 /min Jacobo Prado MD Work Phone: [facility] 01-14-2024 09:28-0400 Respiratory rate 20 /min Jacobo Prado MD Work Phone: [facility] 01-14-2024 09:28-0400 SaO2% (BldA) [Mass fraction] 100 % Jacobo Prado MD Work Phone: [facility] 01-14-2024 09:28-0400 Systolic blood pressure 117 mm[Hg] Jacobo Prado MD Work Phone: [facility] 2023 10:05-0400 Body height 182.9 cm Pfo 1 [facility] 2023 10:05-0400 Body mass index (BMI) [Ratio] 28.2 kg/m2 Pfo 1 [facility] 2023 10:05-0400 Body temperature 97.81 [degF] Pfo 1 [facility] 2023 10:05-0400 Body weight 94.35 kg Pfo 1 [facility] 2023 10:05-0400 Diastolic blood pressure 95 mm[Hg] Pfo 1 [facility] 2023 10:05-0400 Heart rate 97 /min Pfo 1 [facility] 2023 10:05-0400 Respiratory rate 20 /min Pfo 1 [facility] 2023 10:05-0400 SaO2% (BldA) [Mass fraction] 96 % Pfo 1 [facility] 2023 10:05-0400 Systolic blood pressure 143 mm[Hg] Pfo 1 [facility] 07-02-2023 06:27-0400 SaO2% (BldA) [Mass fraction] 91 % [facility] Comment on above: Performed By: #### ABG ####[facility] ([id number])[address] [place] [address] Encounters Encounter Date Encounter Type Care Provider Facility Start: 03-14-2024 ambulatory MD Chester Hobbs Facil ity:FT [facility] Start: 02-14-2024 End: 02-14-2024 Emergency department patient visit CHESTER HOBBS [facility] Start: 02-11-2024 End: 02-12-2024 Manual pelvic examination Tiffanie EISENBERGW Neela [facility]on [facility] Comment on above: 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) Start: 02-11-2024 End: 02-11-2024 ambulatory Pfo Infusion Chair 1 Neela Lennon [facility] - [facility] Oncology Start: 02-09-2024 End: 02-09-2024 Documentation procedure Elizabeth Lennon [facility] Start: 02-09-2024 End: 02-09-2024 ambulatory [facility] Start: 02-04-2024 End: 02-04-2024 ambulatory MD Chester Hobbs Facility:[facility] Start: 01-28-2024 End: 01-28-2024 Manual pelvic examination Pfo 1 Neela Lennon [facility] - [facility] Comment on above: 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 ([facility]-HCC) (Primary Dx) Start: 01-28-2024 End: 01-28-2024 ambulatory Pfo Infusion Bed 1 Neela Lennon [facility] Start: 01-26-2024 End: 01-26-2024 ambulatory [facility] Start: 01-18-2024 End: 01-18-2024 Documentation procedure Sonya Nelson Sebastian [facility] - [facility] Start: 01-15-2024 End: 01-15-2024 Telephone encounter Shahida Nelson Sebastian [facility] Start: 01-15-2024 End: 01-15-2024 Manual pelvic examination Pfo 1 Neela Lennon [facility] Comment on above: 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 ([facility]-HCC) (Primary Dx) Start: 01-15-2024 End: 01-15-2024 ambulatory Pfo Infusion Bed 1 Neela Lennon [facility] - [facility] Start: 01-14-2024 End: 01-14-2024 Documentation procedure Frank Lennon [facility] Start: 01-14-2024 End: 01-14-2024 Office outpatient visit 25 minutes Jacobo Prado MD Work Phone: Neela Lennon [facility] Comment on above: Hodgkin lymphoma, un specified Hodgkin lymphoma type, unspecified body region ([facility]-HCC) (Primary Dx); 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 ([facility]-HCC) Start: 01-14-2024 End: 01-14-2024 ambulatory [facility] Start: 01-12-2024 End: 01-12-2024 [facility] Start: 01-11-2024 ambulatory [facility] Start: 01-08-2024 End: 01-08-2024 ambulatory [facility] Start: 01-07-2024 ambulatory [facility] Start: 01-07-2024 Encounter for preprocedural cardiovascular examination [facility] Start: 01-05-2024 End: 01-05-2024 ambulatory [facility] Start: 2023 End: 2023 Manual pelvic examination Pfo 1 Neela Nelson [facility] - Medical Oncology Comment on above: 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 ([facility]-HCC) (Primary Dx) Start: 2023 End: 2023 ambulatory Pfo Infusion Bed 1 Neela Nelson [facility] - [facility]cology Start: 12-29-2023 End: 12-29-2023 [facility] Start: 12-17-2023 End: 12-17-2023 [facility] Start: 12-15-2023 End: 12-15-2023 ambulatory [facility] Start: 12-03-2023 End: 12-03-2023 [facility] Start: 12-01-2023 End: 12-01-2023 [facility] Start: 11-24-2023 End: 11-24-2023 ambulatory [facility] Start: 11-19-2023 End: 11-19-2023 [facility] Start: 11-17-2023 End: 11-17-2023 [facility] Start: 11-05-2023 End: 11-05-2023 ambulatory [facility] Start: 11-03-2023 End: 11-03-2023 ambulatory CENTENO Jhonathan [facility] Start: 10-27-2023 End: 10-27-2023 ambulatory [facility] Start: 10-22-2023 End: 10-22-2023 ambulatory CENT[facility] Jhonathan [facility] Start: 10-20-2023 End: 10-20-2023 ambulatory [facility] Start: 10-19-2023 End: 10-19-2023 ambulatory MD Chester Hobbs Facility:[facility] Start: 10-13-2023 End: 10-13-2023 ambulatory [facility] Start: 10-13-2023 End: 10-13-2023 ambulatory MD Chester Hobbs Facility:[facility] Start: 10-07-2023 End: 10-12-2023 Evaluation and management of inpatient [facility] Start: 10-07-2023 End: 10-12-2023 Evaluation and management of inpatient [facility] Start: 10-02-2023 End: 10-12-2023 Emergency department patient visit [facility] Start: 10-02-2023 End: 10-12-2023 Evaluation and management of inpatient [facility] Start: 09-29-2023 End: 09-29-2023 [facility] CHESTER HOBBS [facility] Start: 09-24-2023 ambulatory [facility] Start: 09-24-2023 End: 09-24-2023 ambulatory [facility] Start: 09-22-2023 End: 09-22-2023 ambulatory CHESTER HOBBS [facility] Start: 09-17-2023 ambulatory LAURO [facility] Start: 09-15-2023 End: 09-15-2023 ambulatory [facility] Start: 09-11-2023 End: 10-02-2023 ambulatory MD Chester Hobbs Facility:CD:[id number] Start: 09-10-2023 End: 09-10-2023 ambulatory [facility] Start: 09-01-2023 End: 09-01-2023 ambulatory [facility] Start: 08-27-2023 End: 08-27-2023 ambulatory [facility] Start: 08-14-2023 End: 08-14-2023 ambulatory [facility] Jhon[facility] Start: 08-13-2023 End: 08-13-2023 ambulatory [facility] Start: 08-12-2023 End: 08-13-2023 Emergency department patient visit HEATHER [facility] Start: 08-12-2023 End: 08-13-2023 Emergency department patient visit NO PCP NO PCP [facility] Start: 08-07-2023 End: 08-07-2023 ambulatory CENT[facility] Jhonathan [facility] Start: 08-05-2023 End: 08-29-2023 ambulatory JACOBO Ring [facility] Start: 08-04-2023 End: 08-04-2023 ambulatory MD Chester Hobbs Facility:[facility] Start: 07-31-2023 End: 07-31-2023 ambulatory [facility] Start: 07-24-2023 End: 07-24-2023 ambulatory [facility] Start: 07-21-2023 End: 07-21-2023 ambulatory [facility] Start: 07-17-2023 End: 07-17-2023 Evaluation and management of inpatient [facility]US MEN[facility] Start: 07-10-2023 End: 07-17-2023 Evaluation and management of inpatient BRANDON BANUELOS [facility] Start: 07-09-2023 amb[address] [facility] Start: 07-09-2023 ambulatory [address] HOBBS [facility] Start: 07-08-2023 End: 07-17-2023 Evaluation and management of inpatient SAMMY SPRAGUE [facility] Start: 07-06-2023 End: 07-17-2023 Evaluation and management of inpatient TIFFANIE BAKER [facility] Start: 07-04-2023 End: 07-17-2023 Evaluation and management of inpatient TAJ HAILE [facility] Start: 07-03-2023 End: 07-17-2023 Evaluation and management of inpatient CHICA CONTRERSA [facility] Start: 07-02-2023 End: 07-17-2023 Evaluation and management of inpatient AKASH AC [facility] Start: 06-30-2023 ambulatory MD Chester Hobbs Facility :[facility] Start: 06-30-2023 End: 07-17-2023 Evaluation and management of inpatient AIMEE SERNA [facility] Start: 06-29-2023 End: 07-17-2023 Evaluation and management of inpatient HEENA CONDON [facility] Start: 06-27-2023 End: 07-17-2023 Evaluation and management of inpatient FLETCHER HUSTON [facility] Start: 06-26-2023 End: 07-17-2023 [facility] Start: 06-26-2023 End: 07-17-2023 Evaluation and management of inpatient OVIDIO A SAFI [facility] Start: 06-25-2023 End: 06-25-[address] [facility] Start: 06-25-2023 End: 07-17-2023 Evaluation and management of inpatient MONSET BERG [facility] Start: 06-10-2023 End: 06-10-2023 ambulatory STANFORD CANTU [facility] Start: 06-04-2023 End: 06-04-2023 Lab Drop off Chester Hobbs [facility] Start: 06-04-2023 End: 06-04-2023 ambulatory MD Chester Hobbs Facility:[facility] Start: 02-10-2023 End: 02-10-2023 ambulatory ASHER [facility] Start: 02-05-2022 End: 02-06-2022 ambulatory STANFORD CANTU Facility: Start: 09-20-2020 End: 09-20-2020 Patient encounter procedure M Felipe Frank Work Phone: -Pacemaker Check Start: 05-19-2017 End: 05-20-2017 Ambulatory DEFAULT PHYSICIAN Facility:[facility] Start: 04-29-2017 End: 04-30-2017 Ambulatory PROVIDER UNKNOWN Facility:[facility] Start: 04-16-2017 End: 04-17-2017 Ambulatory REFERRED SELF Facility:[facility] Start: 01-28-2017 End: 01-29-2017 Ambulatory REFERRED SELF Facility:[facility] Start: 12-12-2016 End: 12-29-2016 Evaluation and management of inpatient BLAKE LUCAS Facility:[facility] Procedures Date Procedure Procedure Detail Performing Clinician Start: 08-13-2023 Follow-up visit Follow-up CENTENO Jhonathan PRADO Start: 07-31-2023 Chemotherapy Chemotherapy CENTENO JOHAN Start: 11-16-2019 Colonoscopy Chester loja Start: 12-19-2016 BYPASS 1 COR ART FRO M AORTA WITH AUTOL VN, OPEN APPROACH TORSTEN Costello SCHWANN Start: 12-19-2016 BYPASS 1 COR ART FRO M L INT MAMMARY, OPEN APPROACH TORSTEN A SCHWANN Start: 12-19-2016 BYPASS 3 COR ART FRO M AORTA WITH AUTOL ART, OPEN APPROACH TORSTEN A SCHWANN Start: 12-19-2016 EXCISION OF LEFT RAD IAL ARTERY, OPEN APPROACH TORSTEN A SCHWANN Start: 12-19-2016 EXCISION OF LEFT SAP HENOUS VEIN, PERC ENDO APPROACH TORSTEN Costello SCHWANN Start: 12-19-2016 EXCISION OF RIGHT RA DIAL ARTERY, OPEN APPROACH TORSTEN A SCHWANN Start: 12-19-2016 INSERT INFUSION DEV IN R INT JUGULAR VEIN, PERC CT MACE Start: 12-19-2016 INSERTION OF INFUSIO N DEV INTO L FEMOR VEIN, PERC APPROACH CT MACE Start: 12-19-2016 MEASURE OF ARTERIAL SATURATION, PERIPHERAL, PERC APPROACH BLAKE LUCAS Start: 12-19-2016 Performance of Cardi ac Output, Continuous TORSTEN YEPEZ Start: 12-19-2016 ULTRASONOGRAPHY OF R IGHT AND LEFT HEART, TRANSESOPHAGEAL CT MACE Start: 12-19-2016 Ultrasonography of R ight Jugular Veins, Guidance CT MACE Start: 12-16-2016 PLAIN RADIOGRAPHY OF MULT COR ART USING OTH CONTRAST [place] Start: 12-12-2016 INSERTION OF MONITOR DEV INTO R PULM ART, PERC APPROACH RYAN V MOUKARBEL Start: 12-12-2016 MEASURE OF CARDIAC S AMPL \T\ PRESSURE, R HEART, PERC APPROACH RYAN V MOUKARBEL Cholecystectomy Chester Hobbs Comment on above: 2005 Coronary artery bypa ss grafts x 5 Chester Hobbs History of coronary artery bypass grafting Hx of CABG Chester Hobbs Splenectomy Chester Hobbs Comment on above: 1982 Plan of Treatment Date Care Activity Detail Author Start: 02-10-2025 Adult BMI Screening Adult BMI Screen ing [facility] Start: 02-10-2025 Fall Risk Screening Fall Risk Screen ing [facility] Start: 02-10-2025 Tobacco Screening Tobacco Screening [facility] Start: 01-27-2025 Adult BMI Screening Adult BMI Screen ing [facility] Start: 01-14-2025 Adult BMI Screening Adult BMI Screen ing [facility] Start: 01-13-2025 Adult BMI Screening Adult BMI Screen ing [facility] Start: 01-13-2025 Tobacco Screening Tobacco Screening [facility] Start: 12-16-2024 Adult BMI Screening Adult BMI Screen ing [facility] Start: 12-16-2024 Tobacco Screening Tobacco Screening [facility] Start: 03-10-2024 End: 03-10-2024 Patient encounter procedure 03/10/2024 11:15 AM EST Office Visit [facility] [address] [place] [address] [place] [address] Lynnette Abbott MD [address] [facility], [place] [address] [facility] Start: 03-04-2024 End: 03-04-2024 Patient encounter procedure 03/04/2024 1:30 PM EST Office Visit Neela Lennon [facility] Medical Oncology [address] [place] [phone] Jacobo Prado MD [address] [place] [id number] Neelainocente Lennon [facility] Start: 03-01-2024 COVID-19 Vaccine () COVID-19 Vaccine () [facility] Start: 03-01-2024 COVID-19 Vaccine () COVID-19 Vaccine () [facility] Start: 02-11-2024 End: 02-11-2024 ambulatory 02/11/2024 10:00 AM EST Infusion Neela Lennon [facility] [address] [place] [phone] Neela L Sebastian [facility] Medical Oncology Start: 02-09-2024 End: 02-09-2024 ambulatory 02/09/2024 10:00 AM EST Support Visit Neela Lennon [facility] Medical Oncology [address] [place] [phone] Neela L Sebastian [facility] Medical Oncology Start: 02-07-2024 End: 01-13-2025 PT Skull base to mid-thigh PET CT skull to thigh Imaging Routine Hodgkin lymphoma, unspecified Hodgkin lymphoma type, unspecified body region (CMS-HCC) 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, unspecified Hodgkin lymphoma type (CMS-HCC) Expected: 02/07/2024, Expires: 01/13/2025 [facility] Work Phone: Comment on above: Expected: 02/07/2024 , Expires: 01/13/2025 Start: 01-28-2024 End: 01-28-2024 ambulatory 01/28/2024 10:00 AM EDT Infusion Neela Lennon [facility] [address] [place] [phone] Neela Lennon [facility] Start: 01-26-2024 End: 01-26-2024 ambulatory 01/26/2024 9:10 AM EDT Support Visit Neela Lennon [facility] [address] [place] [phone] Neela Lennon [facility] Start: 01-15-2024 End: 01-15-2024 ambulatory 01/15/2024 11:00 AM EDT Infusion Neela Lennon [facility] [address] [place] [phone] Neela Lennon [facility] Start: 01-14-2024 End: 01-14-2024 ambulatory 01/14/2024 10:00 AM EDT Infusion Neela Lennon [facility] [address] [place] [phone] Neela Lennon [facility] Start: 01-14-2024 End: 01-14-2024 Patient encounter procedure 01/14/2024 9:30 AM EDT Office Visit Neela Lennon [facility] [address] [place] [phone] Jacobo Prado MD [facility] [place] [phone] Neela Lennon [facility] Start: 01-12-2024 End: 01-12-2024 ambulatory 01/12/2024 9:10 AM EDT Support Visit Neela Lennon [facility] [address] [place] [phone] Neela Lennon [facility] Start: 01-08-2024 End: 01-08-2024 Patient encounter procedure 01/08/2024 10:30 AM EDT Appointment [facility] [address] [place] [address] Jacobo Prado MD [address] [place] [address] [facility] Start: 11-29-2023 COVID-19 Vaccine ( season) COVID-19 Vaccine () [facility] Start: 11-29-2023 Influenza vaccination Influenza Vacc ine [facility] Start: 2022 Fall Risk Screening Fall Risk Screen ing [facility] Start: 1976 DTaP,Tdap and Td Vaccines (1 - Tdap) DTaP,Tdap and Td Vaccines ( - Tdap) [facility] Start: 01-01-1976 Adult BMI Follow Up Plan Adult BMI Follow Up Plan [facility] Start: 1969 Depression Screening Depression Scre ening [facility] Start: 1955 Medicare Annual Wellness Visit Medicare Annual Wellness Visit [facility] Immunizations Immunization Date Immunization Notes Care Provider Fa cility 01-13-2023 Covid-19, Mrna, Lnp- s, Pf,brenda-sucrose,30 Mcg/0.3ml Fall23 Pfo 1 [facility] 01-13-2023 pneumococcal 20-reyes nt conjugate vaccine hCester Hobbs [facility] 01-13-2023 RSV, bivalent, prote in subunit RSVpreF, diluent reconstituted, 0.5 mL, PF Pfo 1 [facility] 01-02-2023 influenza virus vaccine, unspecified formulation Chester Hobbs [facility] 01-02-2023 Influenza, High-dose , Quadrivalent Pfo 1 [facility] 01-24-2022 SARS-CoV-2 (COVID-19 ) [id number] Chester Hobbs [facility] Comment on above: Result Comment: 2023: [id number] 01-10-2022 influenza virus vaccine, unspecified formulation Chester Hobbs [facility] 01-10-2022 influenza, injectabl e, quadrivalent, preservative free Pfo 1 [facility] 09-05-2021 SARS-CoV-2 mRNA (aidongqbdac-bjvc-eiytq se) vaccine Chester Hobbs [facility] 03-22-2021 zoster vaccine recombinant Chester Hobbs [facility] 12-30-2020 influenza virus vaccine, unspecified formulation Chester Hobbs [facility] 12-30-2020 influenza, injectabl e, quadrivalent, preservative free Pfo 1 [facility] 12-30-2020 zoster vaccine recombinant Chester Hobbs [facility] 12-25-2020 SARS-CoV-2 (COVID-19 ) mRNA BNT-162b2 [employer] Chester Hobbs [facility] 06-27-2020 SARS-CoV-2 (COVID-19 ) mRNA BNT-162b2 [employer] Chester Hobbs [facility] 06-06-2020 SARS-CoV-2 (COVID-19 ) mRNA BNT-162b2 [employer] Chester Hobbs [facility] 01-21-2020 influenza, injectabl e, quadrivalent, preservative free Pfo 1 [facility] 01-10-2019 influenza virus vaccine, unspecified formulation Chester Hobbs [facility] 01-10-2019 influenza, seasonal, injectable Pfo 1 [facility] 03-17-2013 influenza virus vaccine, unspecified formulation [facility] 03-17-2013 influenza, seasonal, injectable Pfo 1 [employer] Payers Date Payer Category Payer Commercial Indemnity MEDICAL MUT UAL [id number] 2023 Unknown 2023 Unknown [id number] 2022 Medicare [id number] 2019 Medicare [id number] 2019 Medicare [id number] 1959 Unknown [id number] 1957 Unknown [id number] 2.16.840.1.220162.3.579.2.5 93 1957 Unknown [id number] 2.16.840.1.801077.3.579.2.1 286 1957 Unknown [id number] 2.16.840.1.062639.3.579.2.1 286 1957 Unknown [id number] 2.16.840.1.502431.3.579.2.1 286 1957 Unknown [id number] 2.16.840.1.753652.3.579.2.1 286 1957 Unknown [id number] 2.16.840.1.240528.3.579.2.1 286 1957 Unknown [id number] 2.16.840.1.920297.3.579.2.1 286 1957 Unknown [id number] 2.16.840.1.128746.3.579.2.1 286 1957 Unknown [id number] 2.16.840.1.305732.3.579.2.1 286 1957 Unknown [id number] 2.16.840.1.144674.3.579.2.1 286 1957 Unknown [id number] 2.16.840.1.032670.3.579.2.1 286 1957 Unknown [id number] 2.16.840.1.949125.3.579.2.1 286 1957 Unknown [id number] 2.16.840.1.941184.3.579.2.1 286 1957 Unknown [id number] 2.16.840.1.772606.3.579.2.1 286 1957 Unknown [id number] 2.16.840.1.581673.3.579.2.1 286 1957 Unknown [id number] 2.16.840.1.605095.3.579.2.1 286 1957 Unknown [id number] 2.16.840.1.245441.3.579.2.1 286 1957 Unknown [id number] 2.16.840.1.718738.3.579.2.1 286 1957 Unknown [id number] 2.16.840.1.105040.3.579.2.1 286 1957 Unknown [id number] 2.16.840.1.282182.3.579.2.1 286 1957 Unknown [id number] 2.16.840.1.660815.3.579.2.1 286 1957 Unknown [id number] 2.16.840.1.158385.3.579.2.1 286 1957 Unknown [id number] 2.16.840.1.295971.3.579.2.1 286 1957 Unknown [id number] 2.16.840.1.255335.3.579.2.1 286 1957 Unknown [id number] 2.16.840.1.109463.3.579.2.1 286 1957 Unknown [id number] 2.16.840.1.943380.3.579.2.7 27 1957 Unknown [id number] 2.16.840.1.714513.3.579.2.7 27 1957 Unknown [id number] 2.16.840.1.589625.3.579.2.7 27 1957 Unknown [id number] 2.16.840.1.501134.3.579.2.7 27 1957 Unknown [id number] 2.16.840.1.576167.3.579.2.7 27 1957 Unknown [id number] 2.16.840.1.437332.3.579.2.7 27 1957 Unknown [id number] 2.16.840.1.750218.3.579.2.7 27 1957 Unknown [id number] 2.16.840.1.493910.3.579.2.7 27 1957 Unknown [id number] 2.16.840.1.113706.3.579.2.1 286 1957 Unknown [id number] 2.16.840.1.327749.3.579.2.1 286 1957 Unknown [id number] 2.16.840.1.768993.3.579.2.1 286 1957 Unknown [id number] 2.16.840.1.284791.3.579.2.1 286 1957 Unknown [id number] 2.16.840.1.238628.3.579.2.1 286 1957 Unknown [id number] 2.16.840.1.540637.3.579.2.1 286 1957 Unknown [id number] 2.16.840.1.286193.3.579.2.1 286 1957 Unknown [id number] 2.16.840.1.484330.3.579.2.1 286 1957 Unknown [id number] 2.16.840.1.661853.3.579.2.1 286 1957 Unknown [id number] 2.840.1.601101.3.579.2.1 286 1957 Unknown [id number] 2.840.1.786904.3.579.2.1 286 1957 Unknown [id number] 2.840.1.941701.3.579.2.1 286 1957 Unknown [id number] 2.840.1.210508.3.579.2.1 286 1957 Unknown [id number] 2.16840.1.719481.3.579.2.1 286 1957 Unknown [id number] 2..840.1.688539.3.579.2.1 286 1957 Unknown [id number] 2.16.840.1.139686.3.579.2.1 286 1957 Unknown [id number] 2.16.840.1.644840.3.579.2.1 286 1957 Unknown [id number] 2.16.840.1.734664.3.579.2.1 286 1957 Unknown [id number] 2.16.840.1.661248.3.579.2.1 286 1957 Unknown [id number] 2.16.840.1.172791.3.579.2.1 286 1957 Unknown [id number] 2.16.840.1.008100.3.579.2.1 286 1957 Unknown [id number] 2.16.840.1.247225.3.579.2.1 286 1957 Unknown [id number] 2.16.840.1.654093.3.579.2.1 286 1957 Unknown [id number] 2.16.840.1.520009.3.579.2.1 286 1957 Unknown [id number] 2.16.840.1.874072.3.579.2.1 286 1957 Unknown [id number] 2.16.840.1.879031.3.579.2.1 286 1957 Unknown [id number] 2.16.840.1.882031.3.579.2.1 286 1957 Unknown [id number] 2.16.840.1.833128.3.579.2.1 286 1957 Unknown [id number] 2.16.840.1.398817.3.579.2.1 286 1957 Unknown [id number] 2.16.840.1.775660.3.579.2.1 286 1957 Unknown [id number] 2.16.840.1.279370.3.579.2.1 286 1957 Unknown [id number] 2.16.840.1.553715.3.579.2.1 286 1957 Unknown [id number] 2.16.840.1.860131.3.579.2.1 286 1957 Unknown [id number] 2.16.840.1.310564.3.579.2.1 286 1957 Unknown [id number] 2.16.840.1.539621.3.579.2.1 286 1957 Unknown [id number] 2.16.840.1.591304.3.579.2.1 286 1957 Unknown [id number] 2.16.840.1.741918.3.579.2.1 286 1957 Unknown [id number] 2.16.840.1.562048.3.579.2.1 286 1957 Unknown [id number] 2.16.840.1.344926.3.579.2.1 286 1957 Unknown [id number] 2.16.840.1.200395.3.579.2.1 286 1957 Unknown [id number] 2.16.840.1.773110.3.579.2.1 286 1957 Unknown [id number] 2.16.840.1.274873.3.579.2.1 286 1957 Unknown [id number] 2.16.840.1.760897.3.579.2.1 286 1957 Unknown [id number] 2.16.840.1.371059.3.579.2.1 286 1957 Unknown [id number] 2.16.840.1.968623.3.579.2.1 286 1957 Unknown [id number] 2.16.840.1.730710.3.579.2.1 286 1957 Unknown [id number] 2.16.840.1.819711.3.579.2.1 286 Self-pay Self Pay [id number] Social History Date Type Detail Facility Tobacco smoking stat [facility] Unknown if ever smoked [facility] Start: 1955 Sex Assigned At Male [facility] Start: 03-08-2020 End: 06-04-2023 Tobacco smoking status Never smoked tobacco (finding) [facility] Start: 04-12-2020 End: 10-02-2023 Sex Assigned At Male [facility] Start: 03-08-2020 Tobacco use and exposure Smokeless tobacco non-user [employer] Start: 2023 End: 02-11-2024 Alcoholic beverage intake Lifetime non-drinker (finding) [employer] Start: 04-12-2020 End: 10-02-2023 History of [facility] Has the [place], [facility], [employer], or water [employer] threatened to shut off services in your home in past 12Mo No [employer] [facility] How often to you hav e a drink containing alcohol? Never [employer] How many standard drinks containing alcohol do you have on a typical day? Not asked [employer] Start: 1955 Sex assigned at Not on file P [facility] Start: 11-02-2014 Sex Male (finding) [facility] Medical Equipment Procedure Code Equipment Code Equipment Origin al Text Equipment Identifier Dates Port [employer] C lrvu Argd 8fr 1 Lum Ltwt Intmd Maria Guadalupe Pu - [id number] , [id number] Start: 08-05-2023 Goals Date Patient Goal Desired Activity /State Personal health goal Comment on above: Formatting of this n ote might be different from the original. Evaluation of progress towards goal: Patients goal is to have a safe discharge home with self care and family support. Resume home care with [facility]. Clinical Notes 02-10-2023 to 02-11-2024 DIA Cueto - 02/11/2024 11:59 PM Yvonne Patel RN - 02/11/2024 10:00 AM Birdie Burton RN - 02/09/2024 2:54 PM Chuck Morley RN - 01/28/2024 10:00 AM EDTPatient Instructions Note Date & Type Note Facility 02-11-2024 History of Present illness Narrative Pleasant pt easily engages with sports book writer, pt relayed he has been doing well. Siblings/in-laws provide natural supports. Continues with [facility]. Opportunity provided to ask questions, pt does not endorse any at this time; sports book writer available & following. documented in this encounter [facility] 02-11-2024 History of Present illness Narrative Patient is here for brentuximab as scheduled. Labs and VS WNL.His nosebleeds have been reported to Dr. Prado. Patient is trying to moisturize his nasal passage. If he continue to have nosebleed he will update PCP to see if he needs to see an ENT. His labs are WNL PLT and hgb are all WNL. Reports he has numbness to both feet which has been present but has not worsened. This is his last treatment today. Port accessed per protocol. Brisk blood return noted, flushes with ease. Premedicated per may. Brentuximab infused over 30 minutes without incident. Port flushed and de accessed per protocol. Pt dc'd in stable ambulatory condition. documented in this encounter [facility] 02-09-2024 History of Present illness Narrative Images from the original note were not included. MD Elizabeth Molina RN It os because of the dryness. he needs to put some Vaseline in the nostril to keep it moist. Previous Messages ----- Message ----- From: Elizabeth Burton RN Sent: 02/09/2024 2:27 PM EST To: Jacobo Prado MD; Sonya Reyes RN; * Patient started having nose bleeds on Thursday and has had six occurrences. Some have happened in the middle of the night. Sis-in-law reports it takes great effort to get them to stop. She wants to know if this is a side effect of the Brentuximab? He is also currently on eliquis for cardiac reasons documented in this encounter [facility] 02-04-2024 Note Patient Education Nutrition BMI for Adults Body mass index (BMI) is a number found using a person's weight and height. BMI can help tell how much of a person's weight is made up of fat. BMI does not measure body fat directly. It is used instead of tests that directly measure body fat, which can be difficult and expensive. What are BMI measurements used for? BMI is useful to: ??? Find out if your weight puts you at higher risk for medical problems. ??? Help recommend changes, such as in diet and exercise. This can help you reach a healthy weight. BMI screening can be done again to see if these changes are working. How is BMI calculated? Your height and weight are measured. The BMI is found from those numbers. This can be done with U.S. or metric measurements. Note that charts and online BMI calculators are available to help you find your BMI quickly and easily without doing these calculations. To calculate your BMI in U.S. measurements: 1. Measure your weight in pounds (lb). 2. Multiply the number of pounds by 703. ??? So, for an adult who weighs 150 lb, multiply that number by 703: 150 x 703, which equals 105,450. 3. Measure your height in inches. Then multiply that number by itself to get a measurement called inches squared. ??? So, for an adult who is 70 inches tall, the inches squared measurement is 70 inches x 70 inches, which equals 4,900 inches squared. 4. Divide the total from step 2 (number of lb x 703) by the total from step 3 (inches squared): 105,450 ? 4,900 = 21.5. This is your BMI. To calculate your BMI in metric measurements: 1. Measure your weight in kilograms (kg). ??? For this example, the weight is 70 kg. 2. Measure your height in meters (m). Then multiply that number by itself to get a measurement called meters squared. ??? So, for an adult who is 1.75 m tall, the meters squared measurement is 1.75 m x 1.75 m, which equals 3.1 meters squared. 3. Divide the number of kilograms (your weight) by the meters squared number. In this example: 70 ? 3.1 = 22.6. This is your BMI. What do the results mean? BMI charts are used to see if you are underweight, normal weight, overweight, or obese. The following guidelines will be used: ??? Underweight: BMI less than 18.5. ??? Normal weight: BMI between 18.5 and 24.9. ??? Overweight: BMI between 25 and 29.9. ??? Obese: BMI of 30 or above. BMI is a tool and cannot diagnose a condition. Talk with your health care provider about what your BMI means for you. Keep these notes in mind: ??? Weight includes fat and muscle. Someone with a muscular build, such as an athlete, may have a BMI that is higher than 24.9. In cases like these, BMI is not a correct measure of body fat. ??? If you have a BMI of 25 or higher, your provider may need to do more testing to find out if excess body fat is the cause. ??? BMI is measured the same way for males and females. Females usually have more body fat than males of the same height and weight. Where to find more information For more information about BMI, including tools to quickly find your BMI, go to: ??? Centers for Disease Control and Prevention: cdc.gov ??? [place] Heart Association: heart.org ??? National Heart, Lung, and Blood [place]: nhlbi.nih.gov This information is not intended to replace advice given to you by your health care provider. Make sure you discuss any questions you have with your health care provider. Document Revised: 12/04/2022 Document Reviewed: 11/27/2022 [employer] Patient Education ? 2023 AFFiRiS. [facility] 01-28-2024 History of Present illness Narrative Pt here for brentuximab as scheduled. Labs and VS WNL. Pt denies any new or worsening symptoms. Reports he has numbness to both feet which has been present but has not worsened. Port accessed per protocol. Brisk blood return noted, flushes with ease. Premedicated per mar. Brentuximab infused over 30 minutes without incident. Port flushed and de accessed per protocol. Pt dc'd in stable ambulatory condition. documented in this encounter [facility] 01-18-2024 History of Present illness Narrative Images from the original note were not included. Call to patient's sister, Bryanna this morning. Explained that patient did not receive AVD + Brentuximab on 12/31/23, he received Brentuximab only per Dr. Prado's orders. Due to the fact that the AVD was not taken out of the the treatment plan, when the day was completed, it shows everything completed even though those medications were not given. It does not mean that those medications were administered, only that the treatment plan was completed. Continued to explain that per my infusion note, it states the Brentuximab only was given, but nothing can be corrected. Bryanna states that she does not want Dr. Prado to think that we gave him the other medications without her knowing. Informed Bryanna that Dr. Prado makes the call on what medications are given, we do not make those decisions alone as nurses. She verbalized understanding. Shahida Maldonado [facility] His sister called and said on 12/31/23 at the bottom of the treatment calendar in [facility] it says he got a full chemo and he did not. She would like that to be corrected. documented in this encounter [facility] 01-15-2024 History of Present illness Narrative Pt here for brentuximab as scheduled. Labs and VS WNL. Pt denies any new or worsening symptoms. Reports he does develop some nausea a few days after treatment but subsides with zofran. Pt seen by Dr. Prado yesterday and ok to proceed with todays treatment. Port accessed per protocol. Brisk blood return noted, flushes with ease. Premedicated per may. Saline flushed between each IVP premed. Brentuximab infused over 30 minutes without incident. Port flushed and de accessed per protocol. Pt dc'd in stable ambulatory condition. documented in this encounter [facility] 01-15-2024 Miscellaneous Notes PET/CT SCHEDULED AT [facility] 02/26/24 10:45 AM ARRIVAL ORDER AND CLINICALS FAXED TO [facility] 01/15/24 documented in this encounter [facility] 01-15-2024 Telephone encounter Note PET/CT SCHEDULED AT [facility] 02/26/24 10:45 AM ARRIVAL ORDER AND CLINICALS FAXED TO [facility] 01/15/24 [facility] 01-14-2024 History of Present illness Narrative Met with pt & his sister in law Gould, pt has been doing well, feels weak at times but is staying mobile & moving frequently. Opportunity provided to ask questions, pt does not endorse any at this time; sports book writer available & following. documented in this encounter [facility] 01-14-2024 History of Present illness Narrative Pt here for f/u CT scan/ lymphoma/ brentuximab with Dr Prado. Orders received: Okay to treat. Jacobo Prado MD 01/14/2024 Plan to hold tx after C7. PET scan end of 02/26/2024 F/u 03/04 to review results. Pet Scan ordered for end of 02/20, and f/u scheduled for 03/04. Pt and family v/u documented in this encounter [facility] 01-14-2024 History of Present illness Narrative Images from the original note were not included. [facility] Rajendra Manrique M.D. Aimee Anderson M.D. Fili Bolanos M.D. Ali Raufi, M.D. Chantale Melvin APRN-NEUROBIOLOGIST Morales Joseph, [facility] Tiffanie Mirandafouzia, [facility] Angelika Jones, [facility] ROSIBEL Javier M.D. Santiago Nicolas M.D. Dale Bro M.D. Brandon Banuelos M.D. Rebekahfouzia Rosenbaum, [facility] Carmen Xavier, [facility] Jennifer Eaton, [facility] Paruldaniel Esteves, [facility] PROGRESS NOTE 01/14/24 History of present illness: The patient is a 67 y.o. male Who presented to [facility] due to some new worsening shortness of breath over the last 2 days. He was transferred to [facility] for further workup. Patient had noted fast heartbeat in low blood pressure since the beginning of May. His primary care doctor had stopped his blood pressure medications over the last few weeks. He also had productive cough in the morning. He has no significant history for smoking or recreational drug use. He reports he drank a fair amount of alcohol when he was younger but he does not drink alcohol regularly now. He reports no personal history of cancer, mother had colon cancer in brother had throat cancer. He has a past medical history of coronary artery disease, status post CABG in 2017. He has essential hypertension, chronic heart failure with reduced ejection fraction (EF 50-55% 05/2023), ischemic cardiomyopathy status post ICD, factor 5 Leiden on Eliquis, dyslipidemia. CTA chest done on admission showed large masslike lesions in the right hilar and subcarinal region compatible with malignancy with numerous enlarged lymph nodes and moderate right pleural effusion. On 06/26/2023 bronchoscopy was completed by the pulmonary team. Biopsy was taken however pathology did not show any malignant cells at this time. He also had pleural fluid drained, which did not find any malignant cells. Some liver lesions were also noted incidentally on CTA chest. He is currently being treated for postobstructive pneumonia. Cardiology has been consulted due to concern for shunting. Oncology is now asked to evaluate secondary to concern for cancer. Brentuximab single agent started 07/2023 (poor performance status) Patient received a dose of brentuximab/AVD 08/2023, treatment was complicated by diarrhea profound fatigue and declined performance status. Interval History: The patient received 1st dose of AVD/brentuximab 08/2023, treatment was complicated with norovirus infection and significant diarrhea. Treatment was changed back to brentuximab only. Before AVD treatment, he was able to walk up steps gaining weight, after the diarrhea and hospitalization he is back to walking with a walker again. Over the past several weeks he has condition continues to improve, he got discharged home now. Able to walk with a walker continue exercise every day. Denies significant diarrhea, weight has been stable. The patient noted numbness tingling over his feet and also left hand. He also noted some muscle aches over his upper thigh. Today he is due for cycle 6 day 15 brentuximab treatment only. Pain scale:0/10, location:NA Recent history: taken from consult on 07/06/23 Objective Physical Examination: Vitals: BP 117/87 Pulse 93 Temp (!) 35.6 C (96.1 F) (Skin) Resp 20 Ht 182.9 cm (6' 0.01 ) Wt 94.6 kg (208 lb 9.6 oz) SpO2 100% BMI 28.28 kg/m Physical Exam Constitutional: General: He is not in acute distress. Appearance: Normal appearance. He is normal weight. He is not ill-appearing. HENT: Head: Normocephalic and atraumatic. Nose: Nose normal. Mouth/Throat: Mouth: Mucous membranes are moist. Eyes: Pupils: Pupils are equal, round, and reactive to light. Cardiovascular: Rate and Rhythm: Normal rate and regular rhythm. Pulses: Normal pulses. Heart sounds: Normal heart sounds. No murmur heard. No friction rub. No gallop. Pulmonary: Effort: Pulmonary effort is normal. No respiratory distress. Breath sounds: Normal breath sounds. Abdominal: General: Abdomen is flat. Bowel sounds are normal. There is no distension. Palpations: Abdomen is soft. There is no mass. Tenderness: There is no abdominal tenderness. Musculoskeletal: General: No swelling. Normal range of motion. Cervical back: Normal range of motion and neck supple. Skin: General: Skin is warm and dry. Capillary Refill: Capillary refill takes less than 2 seconds. Coloration: Skin is not jaundiced. Findings: No rash. Neurological: General: No focal deficit present. Mental Status: He is alert and oriented to person, place, and time. Motor: No weakness. Psychiatric: Mood and Affect: Mood normal. Behavior: Behavior normal. Thought Content: Thought content normal. Judgment: Judgment normal. Lines, Drains, Airways: peripheral IV Recent Labs No results found for this or any previous visit (from the past 24 hours). Inpatient scheduled medications: Current Outpatient Medications: acetaminophen (TYLENOL EXTRA STRENGTH) 500 mg tablet, Take 2 tablets (1,000 mg total) by mouth in the morning and 2 tablets (1,000 mg total) before bedtime., Disp: , Rfl: amiodarone (PACERONE) 200 mg tablet, Take 1 tablet (200 mg total) by mouth in the morning., Disp: , Rfl: apixaban (ELIQUIS) 5 mg tablet, Take 1 tablet (5 mg total) by mouth in the morning and 1 tablet (5 mg total) before bedtime., Disp: , Rfl: atorvastatin (LIPITOR) 20 mg tablet, Take 1 tablet (20 mg total) by mouth in the morning., Disp: , Rfl: calcium carbonate (OS-SARAH BETH) 600 mg elemental (1,500 mg) tablet, Take 1 tablet (600 mg total) by mouth daily with breakfast., Disp: , Rfl: digoxin (LANOXIN) 250 mcg tablet, Take 1 tablet (250 mcg total) by mouth in the morning., Disp: , Rfl: magnesium oxide (MAGOX) 400 mg tablet, Take 1 tablet (400 mg total) by mouth in the morning., Disp: 30 tablet, Rfl: 6 melatonin 3 mg capsule, Take 3 mg by mouth nightly as needed., Disp: , Rfl: metoprolol succinate XL (TOPROL XL) 25 mg 24 hr tablet, Take 0.5 tablets (12.5 mg total) by mouth in the morning., Disp: , Rfl: mirtazapine (REMERON) 15 mg tablet, Take 1 tablet (15 mg total) by mouth nightly., Disp: , Rfl: ondansetron (ZOFRAN) 8 mg tablet, Starting on day 3, take 1 tablet by mouth twice daily as needed for severe nausea or vomiting., Disp: 60 tablet, Rfl: 2 mxvkcstoc-pyrcexhrhxshsqd-dcyrtgdg -magnesium hydroxide-simethicone CMPD (MAGIC MOUTHWASH), Swish and spit 5 mL 4 (four) times a day as needed for mouth/gum irritation. (Patient not taking: Reported on 01/14/2024), Disp: 250 mL, Rfl: 1 potassium chloride (KLOR-CON M 20) 20 MEQ CR tablet, Take 1 tablet (20 mEq total) by mouth in the morning and 1 tablet (20 mEq total) before bedtime. Plan to stop the potassium supplementation once diarrhea has resolved.. 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 Paroxysmal atrial fibrillation on Eliquis Mr. Haywood is a 67 y.o. male with recent diagnosis of classic Hodgkin's lymphoma. The patient's path was reviewed at [facility], the tumor was deemed to be EBV positive, immunohistochemistry staining is consistent with Hodgkin's lymphoma. The tumors are CD15, CD30 GATA3 and [place] positive. These tumors are negative for all other markers tested. Patient has a normal CD4: CD8 ratio. I discussed the results with patient's POA, Joana [id number]. Prior to admission the patient was maintaining a good performance status until about 3 months ago. He developed weight loss, fatigue and profuse night sweats. The patient's energy continues to improve, performance status is now 2. His CT scan after 1 dose of brentuximab already show improvement in retroperitoneal and mediastinal lymph node. C3 day 1 brentuximab/ABD, treatment was complicated by significant diarrhea and normal virus infection. C3D15: Back to single agent brentuximab again. Labs are adequate to proceed with brentuximab only. Most recent CT scan September 2023 showed no suspicious intra-abdominal lymphadenopathy. Intrathoracic and mediastinal lymph nodes have also continue to improve. CT scan of the chest abdomen pelvis again 01/17/24 showed continuous improvement in the chest. No suspicious lymphadenopathy in the abdomen. Due to worsening neuropathy, plan for total of 14 doses (C7) treatment. Labs are adequate for treatment tomorrow. Plan to hold tx after C7. PET scan end of 01/2025 F/u 03/04 to review results. Jacobo Prado M.D. [facility] [address] [place] [address] documented in this encounter [facility] 01-14-2024 Instructions Jacobo Prado MD - 01/14/2024 9:30 AM EDT Okay to treat. Jacobo Prado MD 01/14/2024 Plan to hold tx after C7. PET scan end of 01/2025 F/u 03/04 to review results. documented in this encounter [facility] 01-05-2024 Note [facility] Consult Note Reason for visit: cad, hfref, ICD, 01/05/24 Pt is here for a six month follow up. Pt denies chest pains, dizziness. He has lost few lbs from recent illness. He has been recently admitted to hospital [facility]. He is on Amio and tolerating it. EKG 01/05/24 Sinus tachycardia 11/24/23 Patient here for follow up. He was started on amiodarone at last appt in August with plan for cardioversion. He ended up getting ill and not able to keep apt for cardioversion. He denies chest pain, palpitations, and bleeding on Eliquis. Gets a little lightheaded upon standing but denies syncope. Pt is noted to have HR 115bpm. His device is single lead MDT device and so no atrial channel. EKG Long RP tachy 115bpm: ST vs AT or ? Flutter with hidden P wave. Prior HPI: Torsten Haywood is a 68 y.o. year old with past medical history of chronic systolic heart failure, CAD, and hypertension. Patient has been known to have non-Hodgkin's lymphoma which was diagnosed in June 21, 2023 with metastasis to the lungs and other areas with plans for chemotherapy. He has been on oxygen at 4 L/min at the last evaluation of an echocardiogram done at that time showed EF of 50 to 55%. Since then he has had multiple episodes of A-fib with RVR and currently this seems to be an issue. He has never been offered DCCV before. Currently he is in Afib with RVR and is undergoing Rx for his NHL. PMH: Past Medical History: Diagnosis Date Cardiomyopathy (CMS/HCC) CHF (congestive heart failure) (CMS/HCC) Coronary artery disease Factor V Leiden mutation (CMS/HCC) Hypertension PSH: Past Surgical History: Procedure Laterality Date CARDIAC CATHETERIZATION CHOLECYSTECTOMY CORONARY ARTERY BYPASS GRAFT INSERT / REPLACE / REMOVE PACEMAKER SH: Social Determinants of Health Tobacco Use: Low Risk (07/24/2023) Patient History Smoking Tobacco Use: Never Smokeless Tobacco Use: Never Passive Exposure: Not on file Alcohol Use: Not on file Financial Resource Strain: Not on file Food Insecurity: Not on file Transportation Needs: Not on file Physical Activity: Not on file Stress: Not on file Social Connections: Not on file Intimate Partner Violence: Unknown (05/21/2023) [place] Safety & Environment Fear of Current or Ex-Partner: Not on file Emotionally Abused: Not on file Physically Abused: Not on file Sexually Abused: Not on file Physically or Sexually Abused: Not on file Depression: Not on file Housing Stability: Not on file Utilities: Not on file Allergies: No Known Allergies Weight: 93kg Visit Vitals BP 113/84 Pulse 107 Ht 1.854 m (6' 1 ) Wt 93 kg (205 lb) SpO2 97% BMI 27.05 kg/m??? Smoking Status Never BSA 2.19 m??? Meds: Current Outpatient Medications on File Prior to Visit Medication Sig Dispense Refill amiodarone (Pacerone) 200 mg tablet Take 2 tablets (400 mg) by mouth in the morning and at bedtime for 14 days, THEN 1 tablet (200 mg) once daily as directed. (Patient taking differently: 200mg once daily) 146 tablet 0 apixaban (Eliquis) 5 mg tablet Take 1 tablet (5 mg) by mouth in the morning and at bedtime. 60 tablet 11 atorvastatin (Lipitor) 20 mg tablet Take 1 tablet (20 mg) by mouth at bedtime. 90 tablet 3 bumetanide (Bumex) 1 mg tablet Take 1 tablet (1 mg) by mouth if needed each day (leg swelling, worsening dyspnea). 90 tablet 3 calcium carbonate 600 mg calcium (1,500 mg) tablet Take 600 mg by mouth. digoxin (Lanoxin) 250 MCG tab;et Take 1 tablet (250 mcg) by mouth once daily as directed. 90 tablet 3 magnesium oxide (Mag-Ox) 400 mg (241.3 mg magnesium) tablet Take 400 mg by mouth in the morning. metoprolol succinate XL (Toprol-XL) 25 mg 24 hr tablet Take 1 tablet (25 mg) by mouth in the morning. (Patient taking differently: Take 12.5 mg by mouth in the morning.) 90 tablet 3 mirtazapine (Remeron) 15 mg tablet Take 15 mg by mouth at bedtime. potassium chloride CR (K-Tab) 20 mEq ER tablet Take 1 tablet (20 mEq) by mouth if needed each day (with bumetanide). Do not crush, chew, or split. Take one tablet with each tablet of bumetanide. 90 tablet 3 ipratropium-albuteroL (Duo-Neb) 0.5-2.5 mg/3 mL nebulizer solution Inhale 3 mL. No current facility-administered medications on file prior to visit. ROS: Review of Systems Cardiovascular: Positive for irregular heartbeat. Respiratory: Positive for shortness of breath. All other systems reviewed and are negative. Physical Exam: Constitutional General Appearance: well-nourished, well-developed, appears stated age Level of Distress: comfortable Psychiatric Mental Status: alert, normal affect Orientation: oriented to time, place, and person Insight: good judgement Eyes Lids and Conjunctivae: non-injected, no xanthelasma ENMT Ears: no lesions on external ear Nose: no lesions on external nose Oropharynx: no cyanosis, no pallor Neck Neck: supple, trachea midline Carotid Arter (more content not included)... [facility] 2023 History of Present illness Narrative Patient is here for Brentuximab infusion as scheduled. Toxicity check per flowsheet data. Patient reports that he has noted some slight edema to tops of feet and neuropathy does seem to be getting a bit worse. He reports it is now in the pinky and ring finger of right hand as well as is toes. Otherwise, additional complaints are at baseline. Pre chemo check completed with Frank Olivia RN. Port accessed under sterile procedure with brisk blood return verified and line flushes with ease. NS initiated as mainline at KVO rate. PO benadryl and tylenol pre medications given. IVPB Aloxi and dexamethasone administered over 15 minutes as ordered and patient tolerated well. Brentuximab infused over 30 minutes without incident and patient tolerated well. Upon completion, IV flushed. Port flushed, heparinized, de-accessed and site covered with band aid. Reviewed next appointment date and time and patient verbalized understanding. Patient discharged in stable condition to private vehicle. documented in this encounter [facility] 11-24-2023 Note Pt is here follow up from [facility]. [facility] 11-24-2023 Note [place] Electrophysiology Consult Note Reason for visit: cad, hfref, ICD, 11/24/23 Patient here for follow up. He was started on amiodarone at last appt in August with plan for cardioversion. He ended up getting ill and not able to keep apt for cardioversion. He denies chest pain, palpitations, and bleeding on Eliquis. Gets a little lightheaded upon standing but denies syncope. Pt is noted to have HR 115bpm. His device is single lead MDT device and so no atrial channel. EKG Long RP tachy 115bpm: ST vs AT or ? Flutter with hidden P wave. Prior HPI: Torsten Haywood is a 67 y.o. year old with past medical history of chronic systolic heart failure, CAD, and hypertension. Patient has been known to have non-Hodgkin's lymphoma which was diagnosed in June 21, 2023 with metastasis to the lungs and other areas with plans for chemotherapy. He has been on oxygen at 4 L/min at the last evaluation of an echocardiogram done at that time showed EF of 50 to 55%. Since then he has had multiple episodes of A-fib with RVR and currently this seems to be an issue. He has never been offered DCCV before. Currently he is in Afib with RVR and is undergoing Rx for his NHL. PMH: Past Medical History: Diagnosis Date Cardiomyopathy (CMS/HCC) CHF (congestive heart failure) (CMS/HCC) Coronary artery disease Factor V Leiden mutation (CMS/HCC) Hypertension PSH: Past Surgical History: Procedure Laterality Date CARDIAC CATHETERIZATION CHOLECYSTECTOMY CORONARY ARTERY BYPASS GRAFT INSERT / REPLACE / REMOVE PACEMAKER SH: Social Determinants of Health Tobacco Use: Low Risk (07/24/2023) Patient History Smoking Tobacco Use: Never Smokeless Tobacco Use: Never Passive Exposure: Not on file Alcohol Use: Not on file Financial Resource Strain: Not on file Food Insecurity: Not on file Transportation Needs: Not on file Physical Activity: Not on file Stress: Not on file Social Connections: Not on file Intimate Partner Violence: Unknown (05/21/2023) [place] [facility] [place] Fear of Current or Ex-Partner: Not on file Emotionally Abused: Not on file Physically Abused: Not on file Sexually Abused: Not on file Physically or Sexually Abused: Not on file Depression: Not on file Housing Stability: Not on file Utilities: Not on file Allergies: No Known Allergies Weight: 90.7kg Visit Vitals BP 100/74 (BP Location: Right arm, Patient Position: Sitting) Pulse 55 Ht 1.854 m (6' 1 ) Wt 90.7 kg (200 lb) SpO2 95% BMI 26.39 kg/m??? Smoking Status Never BSA 2.16 m??? Meds: Current Outpatient Medications on File Prior to Visit Medication Sig Dispense Refill amiodarone (Pacerone) 200 mg tablet Take 2 tablets (400 mg) by mouth in the morning and at bedtime for 14 days, THEN 1 tablet (200 mg) once daily as directed. (Patient taking differently: 200mg once daily) 146 tablet 0 apixaban (Eliquis) 5 mg tablet Take 1 tablet (5 mg) by mouth in the morning and at bedtime. 60 tablet 11 atorvastatin (Lipitor) 20 mg tablet Take 1 tablet (20 mg) by mouth at bedtime. 90 tablet 3 bumetanide (Bumex) 1 mg tablet Take 1 tablet (1 mg) by mouth if needed each day (leg swelling, worsening dyspnea). 90 tablet 3 calcium carbonate 600 mg calcium (1,500 mg) tablet Take 600 mg by mouth. digoxin (Lanoxin) 250 MCG tab;et Take 1 tablet (250 mcg) by mouth once daily as directed. 90 tablet 3 magnesium oxide (Mag-Ox) 400 mg (241.3 mg magnesium) tablet Take 400 mg by mouth in the morning. metoprolol succinate XL (Toprol-XL) 25 mg 24 hr tablet Take 1 tablet (25 mg) by mouth in the morning. (Patient taking differently: Take 12.5 mg by mouth in the morning.) 90 tablet 3 mirtazapine (Remeron) 15 mg tablet Take 15 mg by mouth at bedtime. potassium chloride CR (K-Tab) 20 mEq ER tablet Take 1 tablet (20 mEq) by mouth if needed each day (with bumetanide). Do not crush, chew, or split. Take one tablet with each tablet of bumetanide. 90 tablet 3 ipratropium-albuteroL (Duo-Neb) 0.5-2.5 mg/3 mL nebulizer solution Inhale 3 mL. [DISCONTINUED] magnesium hydroxide (Milk of Magnesia) 400 mg/5 mL suspension Take 15 mL by mouth if needed each day. [DISCONTINUED] sildenafil (Viagra) 100 mg tablet TAKE 1 TABLET BY MOUTH NEEDED 30 minutes before intercourse. Only one tablet per day. No current facility-administered medications on file prior to visit. ROS: Review of Systems Cardiovascular: Positive for dyspnea on exertion. Neurological: Positive for light-headedness. All other systems reviewed and are negative. Physical Exam: Constitutional General Appearance: well-nourished, well-developed, appears stated age Level of Distress: comfortable Psychiatric Mental Status: alert, normal affect Orientation: oriented to time, place, and person Insight: good judgement Eyes Lids and Conjunctivae: non-injected, no xanthelasma ENMT Ears: no lesions on external ear Nose: no lesions on external nose Oropharynx: no cyanos (more content not included)... [facility] 10-19-2023 Note Patient Education Nutrition BMI for Adults What is BMI? Body mass index (BMI) is a number that is calculated from a person's weight and height. BMI can help estimate how much of a person's weight is composed of fat. BMI does not measure body fat directly. Rather, it is an alternative to procedures that directly measure body fat, which can be difficult and expensive. BMI can help identify people who may be at higher risk for certain medical problems. What are BMI measurements used for? BMI is used as a screening tool to identify possible weight problems. It helps determine whether a person is obese, overweight, a healthy weight, or underweight. BMI is useful for: ? Identifying a weight problem that may be related to a medical condition or may increase the risk for medical problems. ? Promoting changes, such as changes in diet and exercise, to help reach a healthy weight. BMI screening can be repeated to see if these changes are working. How is BMI calculated? BMI involves measuring your weight in relation to your height. Both height and weight are measured, and the BMI is calculated from those numbers. This can be done either in [place] or metric measurements. Note that charts and online BMI calculators are available to help you find your BMI quickly and easily without having to do these calculations yourself. To calculate your BMI in [place] measurements: 1. Measure your weight in pounds (lb). 2. Multiply the number of pounds by 703. ? For example, for a person who weighs 180 lb, multiply that number by 703, which equals 126,540. 3. Measure your height in inches. Then multiply that number by itself to get a measurement called inches squared. ? For example, for a person who is 70 inches tall, the inches squared measurement is 70 inches x 70 inches, which equals 4,900 inches squared. 4. Divide the total from step 2 (number of lb x 703) by the total from step 3 (inches squared): 126,540 ? 4,900 = 25.8. This is your BMI. To calculate your BMI in metric measurements: 1. Measure your weight in kilograms (kg). 2. Measure your height in meters (m). Then multiply that number by itself to get a measurement called meters squared. ? For example, for a person who is 1.75 m tall, the meters squared measurement is 1.75 m x 1.75 m, which is equal to 3.1 meters squared. 3. Divide the number of kilograms (your weight) by the meters squared number. In this example: 70 ? 3.1 = 22.6. This is your BMI. What do the results mean? BMI charts are used to identify whether you are underweight, normal weight, overweight, or obese. The following guidelines will be used: ? Underweight: BMI less than 18.5. ? Normal weight: BMI between 18.5 and 24.9. ? Overweight: BMI between 25 and 29.9. ? Obese: BMI of 30 or above. Keep these notes in mind: ? Weight includes both fat and muscle, so someone with a muscular build, such as an athlete, may have a BMI that is higher than 24.9. In cases like these, BMI is not an accurate measure of body fat. ? To determine if excess body fat is the cause of a BMI of 25 or higher, further assessments may need to be done by a health care provider. ? BMI is usually interpreted in the same way for men and women. Where to find more information For more information about BMI, including tools to quickly calculate your BMI, go to these websites: ? Centers for Disease Control and Prevention: www.cdc.gov ? [place] Heart Association: www.heart.org ? National Heart, Lung, and Blood [place]: www.nhlbi.nih.gov Summary ? Body mass index (BMI) is a number that is calculated from a person's weight and height. ? BMI may help estimate how much of a person's weight is composed of fat. BMI can help identify those who may be at higher risk for certain medical problems. ? BMI can be measured using [place] measurements or metric measurements. ? BMI charts are used to identify whether you are underweight, normal weight, overweight, or obese. This information is not intended to replace advice given to you by your health care provider. Make sure you discuss any questions you have with your health care provider. Document Revised: 12/07/2019 Document Reviewed: 10/14/2019 [employer] Patient Education ? 2022 [employer]. [facility] 09-15-2023 Note [facility] Consult Note Reason for visit: cad, hfref, ICD, HPI: Torsten Haywood is a 67 y.o. year old with past medical history of chronic systolic heart failure, CAD, and hypertension. Patient has been known to have non-Hodgkin's lymphoma which was diagnosed in June 21, 2023 with metastasis to the lungs and other areas with plans for chemotherapy. He has been on oxygen at 4 L/min at the last evaluation of an echocardiogram done at that time showed EF of 50 to 55%. Since then he has had multiple episodes of A-fib with RVR and currently this seems to be an issue. He has never been offered DCCV before. Currently he is in Afib with RVR and is undergoing Rx for his NHL. PMH: Past Medical History: Diagnosis Date Cardiomyopathy (CMS/HCC) CHF (congestive heart failure) (CMS/HCC) Coronary artery disease Factor V Leiden mutation (CMS/HCC) Hypertension PSH: Past Surgical History: Procedure Laterality Date CARDIAC CATHETERIZATION CHOLECYSTECTOMY CORONARY ARTERY BYPASS GRAFT INSERT / REPLACE / REMOVE PACEMAKER SH: Social Determinants of Health Tobacco Use: Low Risk (07/24/2023) Patient History Smoking Tobacco Use: Never Smokeless Tobacco Use: Never Passive Exposure: Not on file Alcohol Use: Not on file Financial Resource Strain: Not on file Food Insecurity: Not on file Transportation Needs: Not on file Physical Activity: Not on file Stress: Not on file Social Connections: Not on file Intimate Partner Violence: Unknown (05/21/2023) OR Safety & Environment Fear of Current or Ex-Partner: Not on file Emotionally Abused: Not on file Physically Abused: Not on file Sexually Abused: Not on file Physically or Sexually Abused: Not on file Depression: Not on file Housing Stability: Not on file Utilities: Not on file Allergies: No Known Allergies Weight: 98kg Visit Vitals BP 90/62 (BP Location: Right arm, Patient Position: Sitting) Pulse (!) 131 Ht 1.854 m (6' 1 ) Wt 98 kg (216 lb) SpO2 95% BMI 28.50 kg/m??? Smoking Status Never BSA 2.25 m??? Meds: Current Outpatient Medications on File Prior to Visit Medication Sig Dispense Refill apixaban (Eliquis) 5 mg tablet Take 1 tablet (5 mg) by mouth in the morning and at bedtime. 60 tablet 11 atorvastatin (Lipitor) 20 mg tablet Take 1 tablet (20 mg) by mouth at bedtime. 90 tablet 3 bumetanide (Bumex) 1 mg tablet Take 1 tablet (1 mg) by mouth if needed each day (leg swelling, worsening dyspnea). 90 tablet 3 digoxin (Lanoxin) 250 MCG tab;et Take 1 tablet (250 mcg) by mouth once daily as directed. 30 tablet 11 metoprolol succinate XL (Toprol-XL) 25 mg 24 hr tablet Take 1 tablet (25 mg) by mouth in the morning. (Patient taking differently: Take 12.5 mg by mouth in the morning.) 90 tablet 3 mirtazapine (Remeron) 15 mg tablet Take 15 mg by mouth at bedtime. potassium chloride CR (K-Tab) 20 mEq ER tablet Take 1 tablet (20 mEq) by mouth if needed each day (with bumetanide). Do not crush, chew, or split. Take one tablet with each tablet of bumetanide. 90 tablet 3 ipratropium-albuteroL (Duo-Neb) 0.5-2.5 mg/3 mL nebulizer solution Inhale 3 mL. magnesium hydroxide (Milk of Magnesia) 400 mg/5 mL suspension Take 15 mL by mouth if needed each day. sildenafil (Viagra) 100 mg tablet TAKE 1 TABLET BY MOUTH NEEDED 30 minutes before intercourse. Only one tablet per day. No current facility-administered medications on file prior to visit. ROS: Cardio Basic Cardiovascular Symptoms: no lightheadedness, no leg edema, no syncope, no orthopnea, no PND, no claudication, Constitutional Constitutional: no fever, no night sweats, no significant weight gain, no significant weight loss, no exercise intolerance Eyes Eyes: no dry eyes, no irritation, no vision change ENMT Ears: no difficulty hearing, no ear pain Nose: no frequent nosebleeds, Mouth/Throat: no sore throat, no bleeding gums, no snoring, no dry mouth, no mouth ulcers, no oral abnormalities, no teeth problems Respiratory Respiratory: no cough, no wheezing, no coughing up blood, no sleep apnea Musculoskeletal Musculoskeletal: no muscle aches, no muscle weakness, joint pain+, no back pain, no swelling in the extremities Integumentary Skin no rash, no ulcer, no varicosities, no discoloration, no pruritus Neurologic Neurologic: no loss of consciousness, no weakness, no numbness, no seizures, no dizziness, no headaches Psychiatric Psych: no depression, feeling safe in relationship, no alcohol abuse, Hematologic/Lymphatic Hematologic/Lymphatic no swollen glands, no bruising Physical Exam: Constitutional General Appearance: well-nourished, well-developed, appears stated age Level of Distress: comfortable Psychiatric Mental Status: alert, normal affect Orientation: oriented to time, place, and person Insight: good judgement Eyes Lids and Conjunctivae: non-injected, no xanthelasma ENMT Ears: no lesions on external (more content not included)... [facility] 09-01-2023 Note Patient here for dev ice check. BP is 106/78 L sitting. HR going from 125-145. O2 is 97%. Patient was advised by myself to go to the ED for afib w/ RVR per device check. [facility] 07-24-2023 Note OR Cardiology - [facility] Subjective Torsten Haywood is a 67 y.o. year old male patient being seen for Follow-up (Low/high heart rates) Patient Active Problem List Diagnosis Cardiomyopathy (CMS/HCC) Coronary atherosclerosis Factor V Leiden mutation (CMS/HCC) History of coronary artery bypass surgery Benign hypertensive cardiomyopathy with heart failure (CMS/HCC) Implantable cardioverter-defibrillator (ICD) in situ Nonsustained ventricular tachycardia Chronic systolic heart failure (CMS/HCC) Obesity, Class II, BMI 35-39.9 Family History Problem Relation Name Age of Onset Coronary artery disease Father Coronary artery disease Brother Social History Tobacco Use Smoking status: Never Smokeless tobacco: Never Substance Use Topics Alcohol use: Yes Comment: jessenia HPI Torsten is seen in follow-up. He is a 67-year-old man with prior history of coronary artery disease, status post bypass surgery on 12/19/2016, chronic systolic heart failure with subsequent improvement in ejection fraction, status post ICD implantation on 04/29/2017. He tested positive for Factor V leiden (heterozygous). He was started on eliquis. Previously he was evaluated by vascular surgery [Dr. Ordonez]. Lower extremity noninvasive studies showed normal ABIs and TBI's. These symptoms have been chronic. He reports that he will be shuffling and trying to lift his legs with his arms in order to move them. At one point he had stopped the statin therapy for 3 months however the symptoms did not improve. I checked vitamin B12 and folate in June 2020 and those were normal. I referred him to neurology and he has gotten back injections and felt much better with that. In MayJune 21, 2023 he was admitted to the emergency room at [facility] with shortness of breath. Following investigations and transfer to [facility] he was found to have non-Hodgkin's lymphoma with metastasis to the lungs and other areas. He is planned to start chemotherapy soon. During that admission he underwent echocardiogram that showed left ventricular systolic function to be at the lower limits of normal with an ejection fraction of 50 to 55%. He is currently on chronic oxygen therapy at 4 L/min. He denies chest pain. He has occasional irregular heartbeats. He is short of breath on mild exertion NYHA class III symptoms. No significant lower extremity edema. Due to low blood pressure his Entresto is on hold and carvedilol was changed to metoprolol succinate. Bumetanide and potassium are also on hold. Review of Systems Cardiovascular: Positive for irregular heartbeat. Negative for chest pain, claudication, cyanosis, dyspnea on exertion, leg swelling, near-syncope, orthopnea, palpitations, paroxysmal nocturnal dyspnea and syncope. Objective Visit Vitals BP 104/80 (BP Location: Left arm, Patient Position: Sitting, BP Cuff Size: Adult) Pulse (!) 132 Resp 16 Ht 1.854 m (6' 1 ) SpO2 94% BMI 31.80 kg/m??? Smoking Status Never BSA 2.37 m??? Physical Exam Constitutional: Appearance: He is well-developed. He is not ill-appearing. HENT: Head: Normocephalic and atraumatic. Nose: Nose normal. Eyes: General: No scleral icterus. Pupils: Pupils are equal, round, and reactive to light. Neck: Thyroid: No thyromegaly. Vascular: No JVD. Cardiovascular: Rate and Rhythm: Normal rate and regular rhythm. Pulses: Radial pulses are 0 on the right side and 0 on the left side. Heart sounds: Normal heart sounds. No murmur heard. No friction rub. No gallop. Pulmonary: Effort: Pulmonary effort is normal. No respiratory distress. Breath sounds: Decreased breath sounds present. No wheezing or rales. Comments: wearing oxygen by nasal prongs Chest: Chest wall: No tenderness. Abdominal: General: Bowel sounds are normal. There is no distension. Palpations: Abdomen is soft. Tenderness: There is no abdominal tenderness. Musculoskeletal: General: No swelling. Cervical back: Neck supple. Comments: In wheelchair Skin: General: Skin is warm and dry. Neurological: General: No focal deficit present. Mental Status: He is alert and oriented to person, place, and time. Psychiatric: Mood and Affect: Mood normal. Behavior: Behavior is cooperative. Judgment: Judgment normal. Allergies No Known Allergies Medications Current Outpatient Medications: apixaban (Eliquis) 5 mg tablet, Take 1 tablet (5 mg) by mouth in the morning and at bedtime., Disp: 60 tablet, Rfl: 11 atorvastatin (Lipitor) 20 mg tablet, Take 1 tablet (20 mg) by mouth at bedtime., Disp: 90 tablet, Rfl: 3 ipratropium-albuteroL (Duo-Neb) 0.5-2.5 mg/3 mL nebulizer solution, Inhale 3 mL., Disp: , Rfl: magnesium hydroxide (Milk of Magnesia) 400 mg/5 mL suspension, Take 15 mL by mouth if needed each day., Disp: , Rfl: bumetanide (Bumex) 1 mg tablet, Take 1 tablet (1 mg) by mouth if needed each day (more content not included)... [facility] 06-10-2023 Note Device interrogation q 6 months Denied any shock or hospitalization recently [facility] 06-10-2023 Note Currently b/p is sta ble 100/61, med adjustments for c/o hypotension- and new med list provided to pt- he voiced understanding [facility] 06-10-2023 Note [facility] II- currently e uvolemic without exacerbation Repeat echocardiogram to assess cardiac function, EF, Valvular function and rt sided pressures Continue GDMT- Resume coreg 3.125 mg bid, decrease entresto to 1/2 tab bid in light of hypotension, and will reduce Diuretic therapy - Decrease bumex to 1 mg daily and extended coversation with pt to decrease fluid intake to 1.5- 2L per day- since he says he drinks a lot of fluid and added salt/gatorade for low b/p Monitor daily weights, I&O, fluid restriction 1.5-2L/day, renal function and electrolytes- [facility] 06-10-2023 Note Coronary artery dise ase is Stable Continue GDMT- ASA, lipitor, coreg continue risk factor modifications- heart healthy diet, regular exercise as tolerated and continue all medications. [facility] 06-10-2023 Note D/W pt importance of beta azul to prevent reoccurance of VT and he voiced understanding Resume coreg 3.125mg bid [facility] 06-10-2023 Note Patient here today f or hypotension. He stopped taking his carvedilol a week ago. He had routine labs last week. Echo has not been performed yet that was ordered in Jan 2023. Says Dr. Hobbs cut his bumex dose in half and BP continues to be low. He has lost 30# since visit in Jan 2023, but has been trying to. Says he isn't eating much. Denies chest pain, SOB, palpitations, and bleeding on Eliquis. Review of Systems Musculoskeletal: Positive for arthritis, joint pain and myalgias. Neurological: Positive for light-headedness. All other systems reviewed and are negative. [facility] 06-10-2023 Note [facility] CARDIOLOGY PROGR ESS NOTE HPI: Torsten Haywood is a 67 y.o. male here for hypotension HPI 67 y.o. year old with past medical history of chronic systolic heart failure, CAD, and hypertension States he has lost 30 pounds since last appt on purpose with diet. Overall states he is feeling well. Denied syncope, and reports occasional lightheadedness/dizziness. Patient here today for hypotension. He stopped taking his carvedilol a week ago. He had routine labs last week. Echo has not been performed yet that was ordered in Jan [address]23. Says Dr. Hobbs cut his bumex dose in half and BP continues to be low. He has lost 30# since visit in Jan 2023, but has been trying to. Says he isn't eating much. Denies chest pain, SOB, palpitations, and bleeding on Eliquis. Review of Systems Musculoskeletal: Positive for arthritis, joint pain and myalgias. Neurological: Positive for light-headedness. All other systems reviewed and are negative. Visit Vitals BP 100/61 (BP Location: Left arm, Patient Position: Sitting) Pulse (!) 114 Ht 1.854 m (6' 1 ) Wt 109 kg (241 lb) SpO2 94% BMI 31.80 kg/m??? Smoking Status Never BSA 2.37 m??? No Known Allergies Medications: Current Outpatient Medications on File Prior to Visit Medication Sig Dispense Refill apixaban (Eliquis) 5 mg tablet Take 1 tablet (5 mg) by mouth in the morning and at bedtime. 60 tablet 11 aspirin 81 mg EC tablet Take 1 tablet by mouth in the morning. atorvastatin (Lipitor) 20 mg tablet Take 1 tablet (20 mg) by mouth at bedtime. 90 tablet 3 potassium chloride CR (Klor-Con M20) 20 mEq ER tablet Take 1 tablet (20 mEq) by mouth in the morning. 90 tablet 3 sildenafil (Viagra) 100 mg tablet TAKE 1 TABLET BY MOUTH NEEDED 30 minutes before intercourse. Only one tablet per day. [DISCONTINUED] bumetanide (Bumex) 2 mg tablet Take 1 tablet (2 mg) by mouth in the morning and at bedtime. (Patient taking differently: Take 1 mg by mouth in the morning and at bedtime.) 180 tablet 3 [DISCONTINUED] sacubitriL-valsartan (Entresto) 24-26 mg tablet Take 1 tablet by mouth in the morning and at bedtime. 60 tablet 11 [DISCONTINUED] carvedilol (Coreg) 6.25 mg tablet Take 1 tablet (6.25 mg) by mouth with breakfast and with evening meal. (Patient not taking: Reported on 06/10/2023) 180 tablet 3 No current facility-administered medications on file prior to visit. Physical Exam: Constitutional: Appearance: Normal appearance. Without apparent distress, chronically ill HENT: Head: Normocephalic and atraumatic. Nose: Nose normal. Mouth/Throat: Mouth: Mucous membranes are moist. Eyes: Extraocular Movements: Extraocular movements intact. Conjunctiva/sclera: Conjunctivae normal. Neck: Vascular: No JVD. Cardiovascular: Rate and Rhythm: Tachycardia rate and regular rhythm. Pulses: Dorsalis pedis pulses are 3 on the right side and 3on the left side. Posterior tibial pulses are 3 on the right side and 3 on the left side. Heart sounds: Normal heart sounds, S1 normal and S2 normal. Pulmonary: Effort: Pulmonary effort is normal. Breath sounds: Normal breath sounds. Abdominal: General: Bowel sounds are normal. Palpations: Abdomen is soft. Musculoskeletal: General: Normal range of motion. Cervical back: Normal range of motion. Right lower leg: No edema. Left lower leg: No edema. Skin: General: Skin is warm and dry. Capillary Refill: Capillary refill takes less than 2 seconds. Neurological: General: No focal deficit present. Mental Status: he is alert and oriented to person, place, and time. Psychiatric: Mood and Affect: Mood normal. Behavior: Behavior normal. Thought Content: Thought content normal. Judgment: Judgment normal. Labs: 06/04/23 CBC normal, BUN 15, Cr 0.9, GFR > 60 LFT normal Chol 92, Trig 66, HDL 27, LDL 54 08/14/22 CBC normal Renal function normal Liver function normal Chol 106, Trig 78, HDL 35, LDL 55.8 Last lab values have been reviewed CV Testing: Device check 02/10/23: normal device function and stable lead thresholds, no concern for arrhythmia TTE 04/25/20 Assessment/Plan: Nonsustained ventricular tachycardia D/W pt importance of beta azul to prevent reoccurance of VT and he voiced understanding Resume coreg 3.125mg bid Coronary atherosclerosis Coronary artery disease is Stable Continue GDMT- ASA, lipitor, coreg continue risk factor modifications- heart healthy diet, regular exercise as tolerated and continue all medications. Chronic systolic heart failure (CMS/HCC) [place] II- currently euvolemic without exacerbation Continue GDMT- Resume coreg 3.125 mg bid, decrease entresto to 1/2 tab bid in light of hypotension, and will reduce Diuretic therapy - Decrease bumex to 1 mg daily and extended coversation with pt to decrease fluid intake to 1.5- 2L per day- since he says he drinks a lot of fluid and added salt/gatorade for low b/p Monitor daily weights, I&O, fluid (more content not included)... [facility] 02-10-2023 Note OR Electrophysiology Consult Note Reason for visit: cad, hfref, ICD, 6 month follow up HPI: Torsten Haywood is a 67 y.o. year old with past medical history of chronic systolic heart failure, CAD, and hypertension has been doing well without complaints of chest pain, shortness of breath, LE edema Device check 02/10/23: normal device function and stable lead thresholds, no concern for arrhythmia PMH: Past Medical History: Diagnosis Date Cardiomyopathy (CMS/HCC) CHF (congestive heart failure) (CMS/HCC) Coronary artery disease Factor V Leiden mutation (CMS/HCC) Hypertension PSH: Past Surgical History: Procedure Laterality Date CARDIAC CATHETERIZATION CHOLECYSTECTOMY CORONARY ARTERY BYPASS GRAFT INSERT / REPLACE / REMOVE PACEMAKER SH: Social Determinants of Health Tobacco Use: Low Risk (02/05/2022) Patient History Smoking Tobacco Use: Never Smokeless Tobacco Use: Never Passive Exposure: Not on file Alcohol Use: Not on file Financial Resource Strain: Not on file Food Insecurity: Not on file Transportation Needs: Not on file Physical Activity: Not on file Stress: Not on file Social Connections: Not on file Intimate Partner Violence: Not on file Depression: Not on file Housing Stability: Not on file Allergies: No Known Allergies Weight: 123kg Visit Vitals BP 110/74 (BP Location: Left arm, Patient Position: Sitting) Pulse 91 Ht 1.854 m (6' 1 ) Wt 123 kg (271 lb) SpO2 95% BMI 35.75 kg/m??? Smoking Status Never BSA 2.52 m??? Meds: Current Outpatient Medications on File Prior to Visit Medication Sig Dispense Refill apixaban (Eliquis) 5 mg tablet Take 1 tablet (5 mg) by mouth in the morning and at bedtime. 60 tablet 11 aspirin 81 mg EC tablet Take 1 tablet by mouth in the morning. atorvastatin (Lipitor) 20 mg tablet Take 1 tablet (20 mg) by mouth at bedtime. 90 tablet 3 bumetanide (Bumex) 2 mg tablet Take 1 tablet (2 mg) by mouth in the morning and at bedtime. 180 tablet 3 carvedilol (Coreg) 6.25 mg tablet Take 1 tablet (6.25 mg) by mouth with breakfast and with evening meal. 180 tablet 3 potassium chloride CR (Klor-Con M20) 20 mEq ER tablet Take 1 tablet (20 mEq) by mouth in the morning. 90 tablet 3 sacubitriL-valsartan (Entresto) 24-26 mg tablet Take 1 tablet by mouth in the morning and at bedtime. 60 tablet 11 sildenafil (Viagra) 100 mg tablet TAKE 1 TABLET BY MOUTH NEEDED 30 minutes before intercourse. Only one tablet per day. No current facility-administered medications on file prior to visit. ROS: Cardio Basic Cardiovascular Symptoms: no lightheadedness, no leg edema, no syncope, no orthopnea, no PND, no claudication, Constitutional Constitutional: no fever, no night sweats, no significant weight gain, no significant weight loss, no exercise intolerance Eyes Eyes: no dry eyes, no irritation, no vision change ENMT Ears: no difficulty hearing, no ear pain Nose: no frequent nosebleeds, Mouth/Throat: no sore throat, no bleeding gums, no snoring, no dry mouth, no mouth ulcers, no oral abnormalities, no teeth problems Respiratory Respiratory: no cough, no wheezing, no coughing up blood, no sleep apnea Musculoskeletal Musculoskeletal: no muscle aches, no muscle weakness, joint pain+, no back pain, no swelling in the extremities Integumentary Skin no rash, no ulcer, no varicosities, no discoloration, no pruritus Neurologic Neurologic: no loss of consciousness, no weakness, no numbness, no seizures, no dizziness, no headaches Psychiatric Psych: no depression, feeling safe in relationship, no alcohol abuse, Hematologic/Lymphatic Hematologic/Lymphatic no swollen glands, no bruising Physical Exam: Constitutional General Appearance: well-nourished, well-developed, appears stated age Level of Distress: comfortable Psychiatric Mental Status: alert, normal affect Orientation: oriented to time, place, and person Insight: good judgement Eyes Lids and Conjunctivae: non-injected, no xanthelasma ENMT Ears: no lesions on external ear Nose: no lesions on external nose Oropharynx: no cyanosis, no pallor Neck Neck: supple, trachea midline Carotid Arteries: bilateral normal upstroke, no bruits Jugular Veins: normal jugular venous pressure Thyroid: not enlarged Lungs Respiratory Effort: unlabored Chest Exam: normal curvature, no thoracic deformity Auscultation: clear, no wheezing, no rales, no rhonchi Cardiovascular Rate And Rhythm: regular Heart Sounds: normal S1, normal s2, no gallop Systolic Murmur: not heard Diastolic Murmur: not heard Extremities: no cyanosis, no edema, no peripheral signs of emboli Peripheral Pulses Radial Pulse: normal Abdomen Inspection and Palpation: soft, non distended, no bruit, non tender Musculoskeletal Inspection: no joint swelling Neurologic Gait: normal gait Skin Inspection and Palpation: warm and dry Nails: no clubbing Labs: (more content not included)... [facility] 02-10-2023 Note Patient here for 6 m o follow up systolic heart failure, CAD, hypertension. Device was checked today in clinic. He denies chest pain, SOB, palpitations, and bleeding on Eliquis. Doing well from cardiac standpoint. Review of Systems Musculoskeletal: Positive for arthritis, joint pain and myalgias. All other systems reviewed and are negative. [facility] Evaluation + Plan note Future Appointments Appointment Date:06/25/2023 07:00:00 AM Scheduled Provider:Chester Hobbs MD Location:[facility] [place] Appointment Type:FM Open Appointment Date:08/04/2023 08:00:00 AM Scheduled Provider: Location:[facility] [place] Appointment Type:FM Medicare Wellness Subsequent [facility] Evaluation note No assessment inform ation 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, 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, unspecified Hodgkin lymphoma type (CMS-HCC) [facility] 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 [facility] 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 [facility] N[facility] No data available for this section [facility] No data available for this section [facility] filedocumented in this encounter [facility] filedocumented in this encounter [facility] filedocumented in this encounter [facility] filedocumented in this encounter [facility] filedocumented in this encounter [facility] No data available for this section [facility] Summary Purpose Family History No Family History Records FoundNo Family History Records FoundNo Family History Records Found No data available for this section No Family History Records FoundNo Family History Records FoundNo Family History Records FoundNo Family History Records FoundNo Family History Records Found Advance Directives No Advanced Directives Records Found Advance Directive Response Recorded Date/ Time Advance Directives No January 12, 2017 8:21am Documents on File 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 Living Will 07/27/2023 12:01 PM Date Activated Date Inactivated Comments 10/02/2023 10:10 PM 10/12/2023 6:12 PM Date Activated Date Inactivated Comments 06/25/2023 2:35 AM 07/17/2023 11:36 AM Documents on File 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 Living Will 07/27/2023 12:01 PM Date Activated Date Inactivated Comments 10/02/2023 10:10 PM 10/12/2023 6:12 PM Date Activated Date Inactivated Comments 06/25/2023 2:35 AM 07/17/2023 11:36 AM Chief Complaint and Reason for Visit Chief Complaint z95.0 i25.10 Additional Source Comments (unrecognized sect ion and content) No Status Records FoundNo Status Records FoundNo Status Records FoundNo Status Records FoundNo Status Records FoundNo Status Records FoundNo Status Records FoundNo Status Records Found INFORMATION SOURCE (unrecogn ized section and content) DATE CREATED AUTHOR 09/18/2017 [facility] DATE CREATED AUTHOR AUTHOR'S ORGANIZ ATION 04/21/2021 [facility] DATE CREATED AUTHOR AUTHOR'S ORGANIZ ATION 02/10/2022 [facility] DATE CREATED AUTHOR AUTHOR'S ORGANIZ ATION 08/07/2023 [facility] DATE CREATED AUTHOR AUTHOR'S ORGANIZ ATION 08/21/2023 [facility] DATE CREATED AUTHOR AUTHOR'S ORGANIZ ATION 01/13/2024 [facility] DATE CREATED AUTHOR AUTHOR'S ORGANIZ ATION 02/05/2024 [facility] DATE CREATED AUTHOR AUTHOR'S ORGANIZ ATION 02/16/2024 [facility] Goals (unrecognized section and content) Goals may be documented in a n alternate section No data available for this section Patient Care team informatio n (unrecognized section and content) Business Development Professional Relationship Specialty Start Date End Date Jacobo Prado MD [address] [place] [address] PCP - General Hematology 10/02/23 Business Development Professional Relationship Specialty Start Date End Date Jacobo Prado MD [address] [place] [address] PCP - General Hematology 10/02/23 Business Development Professional Relationship Specialty Start Date End Date Jacobo Prado MD [address] [facility] [address] [place] [address] PCP - General Hematology 10/02/23 Business Development Professional Relationship Specialty Start Date End Date Jacobo Prado MD [address] [facility] [address] [place] [address], [place] [address] PCP - General Hematology 10/02/23 Business Development Professional Relationship Specialty Start Date End Date Jacobo Prado MD [address] [facility] [place] [address], [place] [address] PCP - General Hematology 10/02/23 Business Development Professional Relationship Specialty Start Date End Date Jacobo Prado MD [address] [facility] [place] [address], [place] [address] PCP - General Hematology 10/02/23 Business Development Professional Relationship Specialty Start Date End Date Jacobo Prado MD [address] [facility] [place] [address] PCP - General Hematology 10/02/23 Business Development Professional Relationship Specialty Start Date End Date Jacobo Prado MD [address] [facility] [facility] [address] [place] [address] PCP - General Hematology 10/02/23 Business Development Professional Relationship Specialty Start Date End Date Jacobo Prado MD [facility] [address] [place] [id number] PCP - General Hematology 10/02/23 Business Development Professional Relationship Specialty Start Date End Date Jacobo Prado MD [facility] [address] [place] [address] [id number] PCP - General Hematology 10/02/23 Reason for Visit (unrecogniz ed section and content) Reason Comments Chemotherapy Brentuximab Specialty Diagnoses / Procedures Referred By Diony soriano Referred To Contact 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) Procedures TN DOXORUBIC HCL 10 MG VL CHEMO TN VINBLASTINE SULFATE INJ TN DACARBAZINE 100 MG INJ TN BRENTUXIMAB VEDOTIN INJ TN PALONOSETRON HCL TN DEXAMETHASONE SODIUM PHOS Jacobo Prado MD [address] [place] [id number] Phone: tel: fax: Neela L [facility] - Medical Oncology [address] [place] [phone] Phone: tel: fax: Referral ID Status Reason Start Date Expiration Date V isits Requested Visits Authorized [id number] Authorized 07/23/2023 07/22/2024 12 12 Reason Comments Outpatient Infusion Brentuximab Specialty Diagnoses / Procedures Referred By Diony soriano Referred To Contact 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 This clinical summary was aggregated from multiple sources. Caution should be exercised in using it in the provision of clinical care. This summary normalizes information from multiple sources, and as a consequence, information in this document may materially change the coding, format and clinical context of patient data. In addition, data may be omitted in some cases. CLINICAL DECISIONS SHOULD BE BASED ON THE PRIMARY CLINICAL RECORDS. [facility]. provides no warranty or guarantee of the accuracy or completeness of information in this document.
[2024-02-17] MEDS: 0.9 % SODIUM CHLORIDE 1,000 ML 999 ML IV (00:58)
[2024-02-17 01:03] LABS: Hemoglobin 10.8 g/dL (14.0-18.0); Mean Corpuscular HGB Conc 33.8 g/dL (29.9-35.2); Mean Corpuscular Hemoglobin 36.2 pg (25.9-34.0); Mean Corpuscular Volume 107.4 fL (80.0-94.0); Mean Platelet Volume 10.6 fL (9.5-13.5); Platelet Count 323 10^3/uL (150-450); Red Blood Count 2.98 10^6/uL (4.70-6.10); Red Cell Distribution Width 16.8 % (11.0-15.0); White Blood Count 14.7 10^3/uL (4.0-11.0)
--- NOTE | 2024-02-17 01:21 | ED.EPISTAXI1 ---
HPI - Epistaxis General Chief Complaint: Epistaxis Stated Complaint: Epistaxis Time Seen by Provider: 02/17/24 00:33 Source: patient Mode of arrival: Wheelchair Limitations: no limitations History of Present Illness HPI Narrative: past history of epistaxis. Several recent episodes. Was seen here yesterday for nose bleed. Describes silver nitrate cauterization. Discharged home and now bleeding again from left nostril. 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 No headache or chest pain Related Data Home Medications ?Medication ?Instructions ?Recorded ?Confirmed apixaban 5 mg tablet (Eliquis) 5 mg PO BID 06/24/23 02/16/24 atorvastatin 20 mg tablet 20 mg PO BEDTIME 06/24/23 02/16/24 bumetanide 2 mg tablet 1 mg PO BID PRN edema 06/24/23 02/16/24 potassium chloride 20 mEq 20 meq PO DAILY PRN edema 06/24/23 02/16/24 tablet,extended release(part/cryst) acetaminophen 325 mg tablet 650 mg PO BID PRN aches 02/16/24 02/16/24 (Tylenol) amiodarone 200 mg tablet 200 mg PO Q24H 02/16/24 02/16/24 calcium 600 mg capsule 600 mg PO DAILY 02/16/24 02/16/24 digoxin 250 mcg (0.25 mg) tablet 0.25 mg PO DAILY 02/16/24 02/16/24 docusate sodium 100 mg capsule 100 mg PO DAILY 02/16/24 02/16/24 (Colace) magnesium oxide 400 mg PO DAILY 02/16/24 02/16/24 metoprolol succinate 25 mg 12.5 mg PO DAILY 02/16/24 02/16/24 tablet,extended release 24 hr mirtazapine 15 mg tablet (Remeron) 15 mg PO DAILY 02/16/24 02/16/24 Allergies Allergy/AdvReac Type Severity Reaction Status Date / Time No Known Drug Allergies Allergy Verified 02/17/24 00:16 Review of Systems ROS Status of ROS 10 or more systems reviewed and unremarkable except as noted in history and below PFSH PFSH Social History Little interest or pleasure in doing things: not at all Feeling down, depressed, or hopeless: not at all Exam Constitutional Vital Signs, click to edit/add: Last Vital Signs Temp 98.3 F 02/17/24 00:12 Pulse 119 H 02/17/24 00:12 Resp 18 02/17/24 00:12 BP 93/66 02/17/24 00:12 Pulse Ox 95 02/17/24 00:12 O2 Del Method Room Air 02/17/24 00:12 Common normals: no apparent distress, average body habitus, oriented x3, no limitations, healthy appearing, alert and well nourished [facility] Common normals: normocephalic and head/scalp atraumatic Other: nasal pincher in place Eye Common normals: PERRL and EOMs intact bilaterally Respiratory Common normals: normal respiratory effort, no retractions and no use of accessory muscles Cardio Common normals: regular rate, regular rhythm, S1 normal heart sound and S2 normal heart sound GI Common normals: Normal to inspection, nondistended, normoactive bowel sounds present, soft to palpation and non-tender Extremity Common normals: normal to inspection and full ROM Neuro Common normals: oriented x3, CN's II-XII intact bilaterally and moves all extremities Psych Appearance: grossly normal Course Vital Signs Vital signs: Vital Signs Temperature 98.3 F 02/17/24 00:12 Pulse Rate 119 H 02/17/24 00:12 Respiratory Rate 18 02/17/24 00:12 Blood Pressure 93/66 02/17/24 00:12 Pulse Oximetry 95 02/17/24 00:12 Oxygen Delivery Method Room Air 02/17/24 00:12 Temperature 98.3 F 02/17/24 00:12 Pulse Rate 119 H 02/17/24 00:12 Respiratory Rate 18 02/17/24 00:12 Blood Pressure 93/66 02/17/24 00:12 Pulse Oximetry 95 02/17/24 00:12 Oxygen Delivery Method Room Air 02/17/24 00:12 MDM - Epistaxis MDM Narrative Medical decision making narrative: patient presents with nose bleed. he is on eliquis. Able to control bleeding with rhino rocket. Patient discharged home with prescription for amoxicillin Lab Data Labs: Lab Results 02/17/24 Range/Units 00:50 WBC 14.7 H (4.0-11.0) 10^3/uL RBC 2.98 L (4.70-6.10) 10^6/uL Hgb 10.8 L (14.0-18.0) g/dL Hct 32.0 L (42.0-54.0) % MCV 107.4 H (80.0-94.0) fL MCH 36.2 H (25.9-34.0) pg MCHC 33.8 (29.9-35.2) g/dL RDW 16.8 H (11.0-15.0) % Plt Count 323 (150-450) 10^3/uL MPV 10.6 (9.5-13.5) fL Seg Neuts % (Manual) 44.0 (43.0-75.0) Lymphocytes % (Manual) 31.0 (20.5-60.0) % Monocytes % (Manual) 17.0 H (1.7-12.0) % Eosinophils % (Manual) 3.0 (0.9-7.0) % Basophils % (Manual) 4.0 H (0.2-2.0) % Myelocytes % 1.0 Neutrophils # (Manual) 6.46 (1.4-6.5) 10^3/uL Lymphocytes # (Manual) 4.55 H (1.20-3.80) 10^3/uL Monocytes # (Manual) 2.49 H (0.30-0.80) 10^3/uL Eosinophils # (Manual) 0.44 (0.00-0.70) 10^3/uL Basophils # (Manual) 0.58 H (0.00-0.10) 10^3/uL Myelocytes # 0.14 Sodium 142 (136-145) mmol/L Potassium 4.3 (3.5-5.1) mmol/L Chloride 106 (98-107) mmol/L Carbon Dioxide 26.3 (21.0-32.0) mmol/L Anion Gap 14.0 BUN 25.0 H (7.0-18.0) mg/dL Creatinine 0.93 (0.70-1.30) mg/dL Est GFR ( Amer) >60 (>=60 mL/min/1.73m^2) Est GFR (Non-Af Amer) >60 (>=60 mL/min/1.73m^2) BUN/Creatinine Ratio 26.9 Glucose 144 H (74-106) mg/dL Calcium 8.7 (8.5-10.1) mg/dL Discharge Plan Discharge Chief Complaint: Epistaxis Clinical Impression: Epistaxis Patient Disposition: Home, Self-Care Prescriptions / Home Meds: No Action atorvastatin 20 mg tablet 20 mg PO BEDTIME bumetanide 2 mg tablet 1 mg PO BID PRN (Reason: edema) potassium chloride 20 mEq tablet,ER particles/crystals 20 meq PO DAILY PRN (Reason: edema) Patient Comments: only when taking bumex Eliquis 5 mg tablet 5 mg PO BID Patient Comments: on hold since 12/14 amiodarone 200 mg tablet 200 mg PO Q24H digoxin 250 mcg (0.25 mg) tablet 0.25 mg PO DAILY docusate sodium [Colace] 100 mg capsule 100 mg PO DAILY acetaminophen [Tylenol] 325 mg tablet 650 mg PO BID PRN (Reason: aches) mirtazapine [Remeron] 15 mg tablet 15 mg PO DAILY metoprolol succinate 25 mg tablet extended release 24 hr 12.5 mg PO DAILY calcium 600 mg capsule 600 mg PO DAILY magnesium oxide 400 mg magnesium capsule 400 mg PO DAILY Print Language: Lao Instructions: Nosebleed (ED) Additional Instructions: have packing removed in a couple of days Referrals: CHESTER HOBBS [Primary Care Provider] - 1 week Procedures ED Procedure Instructions Procedures Procedures: epistaxis: rhino rocket placed left nostril . bleeding controlled. No complications
[2024-02-17 01:26] LABS: BUN Creatinine Ratio 26.9; Calcium 8.7 mg/dL (8.5-10.1); Carbon Dioxide 26.3 mmol/L (21.0-32.0); Chloride 106 mmol/L (98-107); Estimated GFR (African America >60 (>=60 mL/min/1.73m^2); Estimated GFR (Non-African Ame >60 (>=60 mL/min/1.73m^2); Glucose 144 mg/dL (74-106); Potassium 4.3 mmol/L (3.5-5.1); Sodium 142 mmol/L (136-145)
[2024-02-17 01:50] LABS: Basophils Abs Manual 0.58 10^3/uL (0.00-0.10); Eosinophils Absolute Manual 0.44 10^3/uL (0.00-0.70); Lymphocytes Absolute Manual 4.55 10^3/uL (1.20-3.80); Monocytes Absolute Manual 2.49 10^3/uL (0.30-0.80); Segmented Neut Absolute Manual 6.46 10^3/uL (1.4-6.5)
[2024-02-17 01:51] LABS: Myelocytes Absolute Manual 0.14
[2024-02-17] MEDS: LIDOCAINE HCL 2%-EPINEPHRINE 1:200,000 20 ML MDV INJ (02:02)
[2024-02-17] MEDS: ACETAMINOPHEN 500 MG TABLET 1000 MG PO (02:26)
[2024-02-17 03:08] VITALS: BP 116/72; PULSE 96; O2SAT 98
[2024-02-17] MEDS: AMOXICILLIN 500 MG CAPSULE 1000 MG PO (03:47)
== END 2024-02-17 03:48 | disposition home or self-care (01) ==
PROVIDERS: Emergency Provider Internal Medicine; PCP Family Medicine
DX: R04.0 Epistaxis (principal); I25.10 Atherosclerotic heart disease of native coronary artery without angina pectoris; Z79.01 Long term (current) use of anticoagulants; D68.2 Hereditary deficiency of other clotting factors
CPT/HCPCS: 30901; 36415; 80048; 85007; 85027; 99284

== ENCOUNTER 2024-02-18 19:07 | Emergency (ER) | payer MEDICARE, OTHER, SELFPAY ==
[2024-02-18 19:20] VITALS: BP 123/76; PULSE 84; TEMP 36.8; O2SAT 95; BMI 28.0
--- NOTE | 2024-02-18 19:38 | ED_ITS ---
HPI - Epistaxis General Chief Complaint: Epistaxis Stated Complaint: nose bleed Time Seen by Provider: 02/18/24 19:08 Source: patient Mode of arrival: Wheelchair Limitations: no limitations History of Present Illness HPI Narrative: 68-year-old male presents for nosebleed. He has been seen here twice in the last 2 days and this is his third visit. He has inflatable packing in the left nares. It started oozing a bit this morning and he attempted to see ENT but they could not see him. He is on Eliquis because of some heart issues. Related Data Home Medications ?Medication ?Instructions ?Recorded ?Confirmed apixaban 5 mg tablet (Eliquis) 5 mg PO BID 06/24/23 02/16/24 atorvastatin 20 mg tablet 20 mg PO BEDTIME 06/24/23 02/16/24 bumetanide 2 mg tablet 1 mg PO BID PRN edema 06/24/23 02/16/24 potassium chloride 20 mEq 20 meq PO DAILY PRN edema 06/24/23 02/16/24 tablet,extended release(part/cryst) acetaminophen 325 mg tablet 650 mg PO BID PRN aches 02/16/24 02/16/24 (Tylenol) amiodarone 200 mg tablet 200 mg PO Q24H 02/16/24 02/16/24 calcium 600 mg capsule 600 mg PO DAILY 02/16/24 02/16/24 digoxin 250 mcg (0.25 mg) tablet 0.25 mg PO DAILY 02/16/24 02/16/24 docusate sodium 100 mg capsule 100 mg PO DAILY 02/16/24 02/16/24 (Colace) magnesium oxide 400 mg PO DAILY 02/16/24 02/16/24 metoprolol succinate 25 mg 12.5 mg PO DAILY 02/16/24 02/16/24 tablet,extended release 24 hr mirtazapine 15 mg tablet (Remeron) 15 mg PO DAILY 02/16/24 02/16/24 Previous Rx's ?Medication ?Instructions ?Recorded amoxicillin 500 mg capsule 500 mg PO TID 2 days #6 caps 02/18/24 Allergies Allergy/AdvReac Type Severity Reaction Status Date / Time No Known Drug Allergies Allergy Verified 02/18/24 19:20 Review of Systems ROS Narrative A ten point review of systems is negative except as noted above. PFSH PFSH Social History Little interest or pleasure in doing things: not at all Feeling down, depressed, or hopeless: not at all Exam Narrative Exam Narrative: Nurses note and vital signs reviewed and patient is not hypoxic. General: The patient appears in no apparent distress. Patient is resting comfortably on cart. Skin: Warm, dry, no pallor noted. There is no rash noted. Head: Normocephalic, atraumatic Eye: Normal conjunctiva, no drainage, EOMI. PERRL Ears, Nose, Mouth, and Throat: oral mucosa is moist. Inflatable packing present in the left nares. Some dried blood is present. Cardiovascular: Not tachycardic, irregular Respiratory: Patient is in no distress, no accessory muscle use, lungs are clear to auscultation, no wheezing, rales or rhonchi Back: non-tender GI: Soft and nontender Musculoskeletal: The patient has no evidence of calf tenderness, no pitting e tavon, symmetrical pulses noted bilaterally Neurological: A&O, normal speech Psychiatric: Cooperative Constitutional Vital Signs, click to edit/add: Last Vital Signs Temp 98.2 F 02/18/24 19:20 Pulse 84 02/18/24 19:20 Resp 19 02/18/24 19:20 BP 123/76 02/18/24 19:20 Pulse Ox 95 02/18/24 19:20 O2 Del Method Room Air 02/18/24 19:20 Course Vital Signs Vital signs: Vital Signs Temperature 98.2 F 02/18/24 19:20 Pulse Rate 84 02/18/24 19:20 Respiratory Rate 19 02/18/24 19:20 Blood Pressure 123/76 02/18/24 19:20 Pulse Oximetry 95 02/18/24 19:20 Oxygen Delivery Method Room Air 02/18/24 19:20 Temperature 98.2 F 02/18/24 19:20 Pulse Rate 84 02/18/24 19:20 Respiratory Rate 19 02/18/24 19:20 Blood Pressure 123/76 02/18/24 19:20 Pulse Oximetry 95 02/18/24 19:20 Oxygen Delivery Method Room Air 02/18/24 19:20 MDM - Epistaxis MDM Narrative Medical decision making narrative: The patient's nosebleed has now been controlled. He will need to have his packing removed on Thursday, February 21. He will either see his ENT physician or return here. He is prescribed amoxicillin. The importance of follow-up with the ENT physician was discussed thoroughly. I have no suspicion of posterior bleed. His bleeding has now been completely controlled. Differential Diagnosis Differential diagnosis: Likely anterior epistaxis and posterior epistaxis Discharge Plan Discharge Chief Complaint: Epistaxis Clinical Impression: Epistaxis Patient Disposition: Home, Self-Care Time of Disposition Decision: 20:29 Condition: Good Mode of Transportation: Private Vehicle Prescriptions / Home Meds: New amoxicillin 500 mg capsule 500 mg PO TID 2 Days Qty: 6 0RF No Action atorvastatin 20 mg tablet 20 mg PO BEDTIME bumetanide 2 mg tablet 1 mg PO BID PRN (Reason: edema) potassium chloride 20 mEq tablet,ER particles/crystals 20 meq PO DAILY PRN (Reason: edema) Patient Comments: only when taking bumex Eliquis 5 mg tablet 5 mg PO BID Patient Comments: on hold since 12/14 amiodarone 200 mg tablet 200 mg PO Q24H digoxin 250 mcg (0.25 mg) tablet 0.25 mg PO DAILY docusate sodium [Colace] 100 mg capsule 100 mg PO DAILY acetaminophen [Tylenol] 325 mg tablet 650 mg PO BID PRN (Reason: aches) mirtazapine [Remeron] 15 mg tablet 15 mg PO DAILY metoprolol succinate 25 mg tablet extended release 24 hr 12.5 mg PO DAILY calcium 600 mg capsule 600 mg PO DAILY magnesium oxide 400 mg magnesium capsule 400 mg PO DAILY Print Language: [place] Instructions: Nosebleed (ED) Additional Instructions: See Dr. Mas on Thursday. If unable to see him return here to have your packing removed. Begin this prescription for amoxicillin when the first prescription for amoxicillin is finished. Referrals: CHESTER HOBBS [Primary Care Provider] - 1 week Procedures ED Procedure Instructions Procedures Procedures: Initially I made the decision to remove the current inflatable packing and replace it with a 5.5 cm anterior packing. It was inflated and hemostasis occurred but then he started to have more bleeding. I then made the decision to remove that and packing with Vaseline gauze. The following procedure was performed by me. Approximately 4-1/2 feet of Vaseline gauze were packed into the patient's left nares. This seems to have resulted in hemostasis. No complications and he tolerated the procedure well. No further bleeding occurred.
== END 2024-02-18 20:46 | disposition home or self-care (01) ==
PROVIDERS: Emergency Provider Emergency Medicine; PCP Family Medicine
DX: R04.0 Epistaxis (principal); Z79.01 Long term (current) use of anticoagulants
CPT/HCPCS: 99282

== ENCOUNTER 2024-07-19 12:18 | Outpatient (OUT) | payer MEDICARE, OTHER, SELFPAY ==
--- NOTE | 2024-07-19 12:54 | CA_ITS ---
Patient Name: TORSTEN HARMON MR#: [id number] : 1955 Exam Date: 07/19/2024 Ordering Doctor: DR. JACOBO PRADO M.D. ECHOCARDIOGRAM REPORT PROCEDURE: CA ECHO DOPPLER COMPLETE INDICATIONS: Monitoring cardiotoxic drug therapy COMPARISON: None. DESCRIPTION: COMPLETE ECHOCARDIOGRAM Real-time transthoracic echocardiography with 2D, M-mode, spectral and color flow Doppler performed. QUALITY: Technical quality was good. LEFT VENTRICLE: Normal chamber size. Proximal septal hypertrophy (sigmoid septum). Low normal systolic function. Mildly reduced left ventricular global longitudinal strain at 16.9%. Abnormal septal wall motion due to pacemaker. LV EF: Lower limits of normal left ventricular ejection fraction, (50-55%). DIASTOLIC: Diastolic function is indeterminate. ATRIAL SEPTUM: LEFT ATRIUM: Severe dilatation. RIGHT ATRIUM: Moderate dilatation. Pacer wire present. RIGHT VENTRICLE: Moderate dilatation. Borderline right ventricular systolic function. Pacer wire present. TRICUSPID VALVE: Normal mobility and thickness. No stenosis with mild to moderate regurgitation. No evidence of pulmonary hypertension. RVSP 30 mmHg. MITRAL VALVE: Normal mobility and thickness. No evidence of mitral valve stenosis. There is no mitral annular calcification. Mild to moderate mitral regurgitation. AORTIC VALVE: Normal trileaflet appearance. No visible sclerosis. Normal leaflet mobility. No evidence of aortic valve stenosis. Mild aortic regurgitation. AORTIC ROOT: Normal diameter and appearance, measuring 3.5 cm. Mild dilatation of the ascending aorta measuring 3.9 cm. PULMONIC VALVE: Normal thickness and mobility. No stenosis. Trivial regurgitation. PERICARDIUM: No evidence of pericardial effusion. IVC: Collapses with inspirations. Normal size. PLEURA: CONCLUSION: 1. Normal left ventricular size with low normal systolic function. Estimated LVEF is 50 to 55%. Global longitudinal strain is mildly reduced. 2. Moderately dilated right ventricle with borderline systolic function. 3. Moderate severe biatrial dilatation. 4. Mild to moderate mitral and tricuspid regurgitation. 5. Mild aortic regurgitation. 6. Normal right-sided pressures. Adult Echocardiography Procedure Report Left Ventricle LVEDD (3.7 - 5.6 cm): 5.53 cm LVESD (2.2 - 4.0 cm): 3.79 cm LVIVS thickness (0.6 - 1.2 cm): 1.74 cm LVPW thickness (0.5 - 1.0 cm): 1.22 cm e': 0.08 m/s E - e': 7.57 LVOT Max Gradient: 2.21 mm[Hg] LVOT Area (cm2): 0.74 m/s Peak Velocity (LVOT): 0.74 m/s Mean Velocity (LVOT): 0.50 m/s LVOT Diameter 2.47 cm Left Ventricular Ejection Fraction: 50-55 % Left Atrium LA Volume Index (2D A2C): 52.87 ml/m2 Left Atrium Systolic Dimension: 4.93 cm Mitral Valve MV E to A Ratio: 0.70 Mitral Valve A-Wave Peak Velocity: 0.87 m/s Mitral Valve E-Wave Peak Velocity: 0.61 m/s Right Ventricle RV Internal Diastolic Dimension: 5.20 cm Aorta AO Root Diam: 3.49 cm Ascending Ao Diam: 3.90 cm Aortic Valve AoV Area (Peak Grupo): 2.83 cm2, 2.83 cm2 AoV Area (VTI): 2.31 cm2, 2.31 cm2 Deceleration Alcorn: 1.58 m/s2 Pressure Half-Time: 864.34 ms Peak Velocity(Antegrade Flow): 1.26 m/s Peak Gradient(Antegrade Flow): 6.34 mm[Hg] Mean Velocity(Antegrade Flow): 0.83 m/s Mean Gradient(Antegrade Flow): 3.21 mm[Hg] Velocity Time Integral: 27.06 cm Tricuspid Valve Peak Velocity (Regurgitant Flow): 2.16 m/s, 2.43 m/s, 2.60 m/s Pulmonic Valve Peak Velocity: 1.10 m/s Peak Gradient: 4.57 mm[Hg], 5.18 mm[Hg] Right Atrium Right Atrium Systolic Pressure: 90.46 ml, 90.46 ml Dictated by: Francisco Tena M.D. on 07/19/2024 at 18:34 Approved by: Francisco Tena M.D. on 07/19/2024 at 18:40
== END 2024-07-19 12:19 | disposition home or self-care (01) ==
LOC: CARD 12:20
PROVIDERS: PCP Family Medicine; Visit Provider Internal Medicine Hematology & Oncology
DX: C81.90 Hodgkin lymphoma, unspecified, unspecified site (principal); C81.96 Hodgkin lymphoma, unspecified, intrapelvic lymph nodes; Z51.81 Encounter for therapeutic drug level monitoring; Z79.899 Other long term (current) drug therapy
CPT/HCPCS: 93306; 93356

== ENCOUNTER 2024-10-19 14:44 | Outpatient (OUT) | payer MEDICARE, OTHER, SELFPAY ==
--- NOTE | 2024-10-19 14:30 | CA_ITS ---
Patient Name: TORSTEN HARMON MR#: [id number] : 1955 Exam Date: 10/19/2024 Ordering Doctor: DR. JACOBO PRADO M.D. ECHOCARDIOGRAM REPORT PROCEDURE: CA ECHO DOPPLER COMPLETE INDICATIONS: Cardiotoxic drug therapy, Hodgkin lymphoma, CABGx5, pace/defib COMPARISON: None. DESCRIPTION: COMPLETE ECHOCARDIOGRAM Real-time transthoracic echocardiography with 2D, M-mode, spectral and color flow Doppler performed. QUALITY: Technical quality was good. LEFT VENTRICLE: Normal chamber size. Proximal septal hypertrophy (sigmoid septum). Moderate concentric hypertrophy. The septum is abnormal in motion. Mildly reduced systolic function. LV EF: Mildly reduced left ventricular ejection fraction, (45-50%). DIASTOLIC: ATRIAL SEPTUM: LEFT ATRIUM: Mild dilatation. RIGHT ATRIUM: Moderate dilatation. RIGHT VENTRICLE: Mild dilatation. Mildly decreased right ventricular systolic function. Pacer wire present. TRICUSPID VALVE: Normal mobility and thickness. No stenosis with trivial regurgitation. No evidence of pulmonary hypertension. RVSP 30 mmHg MITRAL VALVE: Normal mobility and thickness. No evidence of mitral valve stenosis. There is no mitral annular calcification. Mild mitral regurgitation. AORTIC VALVE: Normal trileaflet appearance. Normal leaflet mobility. No evidence of aortic valve stenosis. Multifocal calcifications. Trivial aortic regurgitation. AORTIC ROOT: Normal diameter and appearance, measuring 3.9 cm. Ascending aorta is normal in size, measuring 3.1 cm. PULMONIC VALVE: Normal thickness and mobility. No stenosis. No regurgitation. PERICARDIUM: No evidence of pericardial effusion. IVC: Collapses with inspiration. PLEURA: CONCLUSION: 1. Moderate concentric left ventricular hypertrophy with mildly reduced systolic function. LVEF is estimated at 45 to 50%. 2. Mildly dilated right ventricle with mildly reduced systolic function. 3. Mild to moderate biatrial dilatation. 4. Mild mitral regurgitation. 5. Normal right-sided pressures. Adult Echocardiography Procedure Report Left Ventricle LVEDD (3.7 - 5.6 cm): 5.72 cm LVESD (2.2 - 4.0 cm): 3.86 cm LVIVS thickness (0.6 - 1.2 cm): 1.64 cm LVPW thickness (0.5 - 1.0 cm): 1.34 cm e': 0.12 m/s E - e': 3.50 LVOT Max Gradient: 2.14 mm[Hg] LVOT Area (cm2): 0.73 m/s Peak Velocity (LVOT): 0.73 m/s Mean Velocity (LVOT): 0.52 m/s LVOT Diameter 2.86 cm Left Atrium LA Volume Index (2D A2C): 24.97 ml/m2 Left Atrium Systolic Dimension: 4.62 cm Mitral Valve MV E to A Ratio: 0.53 Mitral Valve A-Wave Peak Velocity: 0.82 m/s Mitral Valve E-Wave Peak Velocity: 0.43 m/s Right Ventricle Aorta AO Root Diam: 3.86 cm Ascending Ao Diam: 3.08 cm Aortic Valve AoV Area (Peak Grupo): 4.01 cm2, 4.01 cm2 AoV Area (VTI): 4.29 cm2, 4.29 cm2 Peak Velocity(Antegrade Flow): 1.18 m/s Peak Gradient(Antegrade Flow): 5.54 mm[Hg] Mean Velocity(Antegrade Flow): 0.69 m/s Mean Gradient(Antegrade Flow): 2.31 mm[Hg] Velocity Time Integral: 16.33 cm Tricuspid Valve Peak Velocity (Regurgitant Flow): 2.60 m/s Pulmonic Valve Peak Gradient: 6.16 mm[Hg], 7.41 mm[Hg] Right Atrium Right Atrium Systolic Pressure: 85.33 ml, 85.33 ml Dictated by: Francisco Tena M.D. on 10/19/2024 at 19:10 Approved by: Francisco Tena M.D. on 10/19/2024 at 19:14
== END 2024-10-19 14:45 | disposition home or self-care (01) ==
LOC: CARD 14:44
PROVIDERS: PCP Family Medicine; Visit Provider Internal Medicine Hematology & Oncology
DX: Z51.81 Encounter for therapeutic drug level monitoring (principal); C81.90 Hodgkin lymphoma, unspecified, unspecified site; C81.96 Hodgkin lymphoma, unspecified, intrapelvic lymph nodes; Z79.899 Other long term (current) drug therapy
CPT/HCPCS: 93306; 93356

== ENCOUNTER 2025-03-03 12:10 | Outpatient (OUT) | payer MEDICARE, OTHER, SELFPAY ==
--- OUTSIDE RECORDS SUMMARY | 2025-03-03 11:15 | XMS_ITS | Encounter Summary ---
Author Organization [facility] Address [address] [place] [address] Care Team Providers Care Meteorological Observer Name Role Phone Emilia Avery INJECTION MOLDING PROCESS TECHNICIAN-C Primary Care Provider [phone] Encounter Details DateTypeDepartmentCare Team (Latest Contact Info)Blbpwljjbal85/05/2025 11:15 AM ESTOffice Visit [facility] [place] [address] [place] [address] Francisco Tena MD [address] [facility] [address] [facility] [place] [address] Shortness of breath (Primary Dx); Paroxysmal atrial fibrillation (CMS/HCC); Coronary artery disease involving [place] coronary artery of un[place]et heart without angina pectoris; Heart failure with improved ejection fraction (HFimpEF) (CMS/HCC); History of coronary artery bypass surgery; Factor V Leiden; Implantable cardioverter-defibrillator (ICD) in situ Social History Tobacco UseTypesPacks/DayYears UsedDateSmoking Tobacco: NeverSmokeless Tobacco: NeverAlcohol UseStandard Drinks/WeekCommentsYes0 (1 standard drink = 0.6 oz pure alcohol)moderateUT Safety & EnvironmentAnswerDate RecordedFear of Current or Ex-PartnerNot on file05/21/2023Emotionally AbusedNot on file05/21/2023hysically AbusedNot on file05/21/2023Sexually AbusedNot on file05/21/2023hysically or Sexually AbusedNot on file05/21/2023Sex and Gender InformationValueDate Recorded Sex Assigned at BwrwgUqfl21/28/2025 2:43 PM EDTLegal JhvZhvj1709/25/2021 11:59 PM EDTGender UzozjktxNcpq69/28/2025 2:43 PM EDTSexual OrientationHeterosexual or Vaxuyusw27/28/2025 2:43 PM EDTdocumented as of this encounter Last Filed Vital Signs Vital SignReadingTime TakenCommentsBlood Snctykxe320/8503/03/2025 11:20 AM EST Nlcgi833603/03/2025 11:20 AM ESTTemperature--Respiratory Rate--Oxygen Saturation 94%03/03/2025 11:20 AM ESTInhaled Oxygen Concentration--Dtmcug247 kg (234 lb) 03/03/2025 11:20 AM AWAWlfxqg988.4 cm (6' 1 )03/03/2025 11:20 AM ESTBody Mass Index30.8703/03/2025 11:20 AM ESTdocumented in this encounter Progress Notes * Francisco Tena MD - 03/03/2025 11:15 AM EST Images from the original note were not included. [facility] Subjective Raul Haywood is a 69 y.o. year old male patient here for a requested appointment due to an increase in SOB/MARTEL, increased fatigue, weak legs, over the last month. Patient denies palpitations/racing heart. Leg swelling. Patient states he will be having bone marrow test on Mar 13, and PET scan on the Mar 17. Finished Chemo in Nov. 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 (CMS/HCC) Paroxysmal atrial fibrillation (CMS/HCC) Abnormal WBC count Dehydration Diarrhea 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 Hodgkin lymphoma (CMS/HCC) Hypokalemia Hypomagnesemia Hyponatremia Benign essential hypertension Constipation Dizziness and giddiness Drug-induced insomnia (CMS/HCC) skilled nursing (current) use of anticoagulants Neuropathy of both feet Nosebleed Tachycardia Tubular adenoma of colon History of splenectomy Family History Problem Relation Name Age of Onset Coronary artery disease Father Coronary artery disease Brother Social History Tobacco Use Smoking status: Never Smokeless tobacco: Never Substance Use Topics Alcohol use: Yes Comment: moderate Drug use: Never HPI Raul is seen in follow-up. He is a 69-year-old man with prior history of coronary artery disease, status post bypass surgery on 12/19/2016, chronic systolic heart failure with subsequent improvement in ejection fraction, statuspost ICD implantation on 04/29/2017. He tested positive [...] was admitted to the emergency room at [facility] with shortness of breath. Following investigations and transfer to [facility] he was found to have non-Hodgkin's lymphoma with metastasis to the lungs and other areas. During that admission he underwent echocardiogram that showed left ventricular systolic function to be at the lower limits of normal with an ejection fraction of 50 to 55%. He was on chronic oxygen therapy at 4 L/min. He subsequently was found to have episodes of atrial fibrillation with rapid ventricular response by device check. He was evaluated by Dr. Peter Emery in clinic. He has been maintained on amiodarone. he has finished the chemotherapeutic treatment in November 2024. He previously had issues with epistaxis but not anymore. He is currently on Eliquis 2.5 mg twice daily. I was supposed to see him in about 1 to 2 months with a follow-up echocardiogram however today's visit is at his request due to worsening shortness of breath on exertion. NYHA class II-III symptoms. He has mild lower extremity edema occasionally. He reports that he has not needed the Bumex which hetakes according to feet swelling. He denies chest pain and palpitations. Recent pacemaker interrogation showed evidence of possible intrathoracic fluid accumulation. Review of Systems Constitutional: Positive for malaise/fatigue. Cardiovascular: Positive for dyspnea on exertion. Respiratory: Positive for shortness of breath. Hematologic/Lymphatic: Bruises/bleeds easily. Neurological: Positive for light-headedness. All other systems reviewed and are negative. Objective Visit Vitals BP 126/85 (BP Location: Left arm, Patient Position: Sitting) Pulse 74 Ht 1.854 m (6' 1 ) Wt 106 kg (234 lb) SpO2 94% BMI 30.87 kg/m?? Smoking Status Never BSA 2.34 m?? Physical Exam Constitutional: Appearance: He is well-developed. [...] breath sounds present. No wheezing or rales. Chest: Chest wall: No tenderness. Abdominal: General: Bowel sounds are normal. There is no distension. Palpations: Abdomen is soft. Tenderness: There is no abdominal tenderness. Musculoskeletal: General: No swelling. Cervical back: Neck supple. Right lower le+ Pitting Edema present. Left lower le+ Pitting Edema present. Comments: Using a cane to assist with ambulation Skin: General: Skin is warm and dry. Neurological: General: No focal deficit present. Mental Status: He is alert and oriented to person, place, and time. Psychiatric: Mood and Affect: Mood normal. Behavior: Behavior is cooperative. Judgment: Judgment normal. Allergies No Known Allergies Medications Current Outpatient Medications: amiodarone (Pacerone) 200 mg tablet, Take 1 tablet by mouth once a day, Disp: 90 tablet, Rfl: 3 apixaban (Eliquis) 5 mg tablet, Take 1 tablet (5 mg) by mouth in the morning and at bedtime. (Patient taking differently: Take 2.5 mg by mouth two times daily.), Disp: 60 tablet, Rfl: 11 atorvastatin (Lipitor) 20 mg tablet, Take 1 tablet (20 mg) by mouth at bedtime., Disp: 90 tablet, Rfl: 3 bumetanide (Bumex) 1 mg tablet, Take 1 tablet (1 mg) by mouth if needed each day (leg swelling, worsening dyspnea)., Disp: 90 tablet, Rfl: 3 calcium carbonate 600 mg calcium (1,500 mg) tablet, Take 600 mg by mouth., Disp: , Rfl: digoxin (Lanoxin) 250 MCG tab;et, Take 1 tablet (250 mcg) by mouth once daily as directed., Disp: 90 tablet, Rfl: 3 famotidine (Pepcid) 40 mg/5 mL (8 mg/mL) suspension, Take 20 mg by mouth twice a day. (Patient taking differently: Take 20 mg by mouth if needed.), Disp: , Rfl: gabapentin (Neurontin) 300 mg capsule, Take 300 mg by mouth at bedtime. (Patient taking differently: Take 300 mg by mouth two times daily.), Disp: , Rfl: ibuprofen 200 mg tablet, Take 200 mg by mouth every 6 (six) hours if needed., Disp: , Rfl: loratadine (Claritin Reditabs) 10 mg disintegrating tablet, Take 10 mg by mouth in the morning. (Patient taking differently: Take 10 mg by mouth if needed.), Disp: , Rfl: magnesium oxide (Mag-Ox) 400 mg (241.3 mg magnesium) tablet, Take 400 mg by mouth in the morning., Disp: , Rfl: metoprolol succinate XL (Toprol-XL) 25 mg 24 hr tablet, Take 0.5 tablets (12.5 mg) by mouth once daily as directed., Disp: 45 tablet, Rfl: 3 ondansetron (Zofran) 8 mg tablet, Take 8 mg by mouth every 8 (eight) hours if needed., Disp: , Rfl: dexAMETHasone (Decadron) 4 mg tablet, Take 4 mg by mouth in the morning. (Patient not taking: Reported on 03/03/2025), Disp: , Rfl: ipratropium-albuteroL (Duo-Neb) 0.5-2.5 mg/3 mL nebulizer solution, Inhale 3 mL. (Patient not taking: Reported on 03/03/2025), Disp: , Rfl: mirtazapine (Remeron) 15 mg tablet, Take 15 mg by mouth at bedtime. (Patient not taking: Reported on 03/03/2025), Disp: , Rfl: Recent Labs Ancillary Procedure on 10/06/2024 Component Date Value BSA 10/26/2024 2.34 Ancillary Procedure on 09/22/2024 Component Date Value BSA 10/31/2024 2.34 Ancillary Procedure on 09/22/2024 Component Date Value BSA 10/26/2024 2.34 blood testing 12/07/2024: Hemoglobin 13.1, platelets 375, potassium 4.1, LFTs normal, BUN 18, creatinine 0.83. Blood testing 10/12/2024: Potassium 4.3, BUN 12, creatinine 0.88, LFTs normal, hemoglobin 13.3, platelets 387. TSH 4.25. Labs 07/17/2023: Hemoglobin 11.2, hematocrit 33.7, platelets 475, potassium 4.9, BUN 10, creatinine 0.47, eGFR more than 90. Blood testing 03/10/2024: Potassium 4.0, BUN 17, creatinine 0.75, LFTs normal, hemoglobin 11.7, platelets 420. Blood testing 02/09/2024: Potassium 4.2, BUN 15, creatinine 0.79, LFTs normal, EGFR more than 90, hemoglobin 14, platelets 310. Blood testing 06/24/2023: Hemoglobin 13.7, platelets 572, potassium 3.8, BUN 23, creatinine 1.09, EGFR more than 60, LFTs within normal limits, NT proBNP 535, high-sensitivity troponin 26. 06/04/23 CBC normal, BUN 15, Cr 0.9, GFR > 60 LFT normal Chol 92, Trig 66, HDL 27, LDL 54 08/14/22 CBC normal Renal function normal Liver function normal Chol 106, Trig 78, HDL 35, LDL 55.8 Imaging and other tests Cardiac device check 01/05/2025: [facility] [employer] Heart Failure Report THORACIC IMPEDANCE VALUES POSSIBLE FLUID RETENTION. PACING PERCENTAGE RV pacing @ 34.9% Echocardiogram 10/19/2024: CONCLUSION: 1. Moderate concentric left ventricular hypertrophy with mildly reduced systolic function. LVEF is estimated at 45 to 50%. 2. Mildly dilated right ventricle with mildly reduced systolic function. 3. Mild to moderate biatrial dilatation. 4. Mild mitral regurgitation. 5. Normal right-sided pressures. Echocardiogram 07/19/2024: CONCLUSION: 1. Normal left ventricular size with low normal systolic function. Estimated LVEF is 50to 55%. Global longitudinal strain is mildly reduced. 2. Moderately dilated right ventricle with borderline systolic function. 3. Moderate severe biatrial dilatation. 4. Mild to moderate mitral and tricuspid regurgitation. 5. Mild aortic regurgitation. 6. Normal right-sided pressures. Device check 06/15/2024: Ventricular pacing 6.4%. Underlying rhythm normal sinus rhythm. Possible OptiVol fluid accumulation 08/19/2023 to 04/26/2024. No atrial or ventricular events. ECG 05/25/2024: Sinus rhythm with first-degree AV block, otherwise normal ECG. Device interrogation 04/28/2024: Lead thresholds are stable. THORACIC IMPEDANCE VALUES Optivol uid index continues to be exceeded. PHARMACY AIDE PHARMACY AIDE 13.2% Echocardiogram 07/03/2023: Left Atrium: Agitated saline bubble study reveals evidence of right to left interatrial shunting . Left Atrium Agitated saline bubble study reveals evidence of right to left interatrial shunting . Study Details A limited echo was performed using limited 2D. An agitated saline bubble study was performed. Overall the study quality was adequate. Limited study for bubble study only. Lower extremity duplex bilateral 07/03/2023: Conclusions: BILATERAL: NO EVIDENCE of deep vein thrombosis of the lower extremity as stated above.Evaluation of superficial veins was not performed. Echocardiogram 06/30/2023: Left Ventricle: Systolic function is low normal to mildly decreased with an ejection fraction of 50-55%. Grade I diastolic dysfunction (impaired relaxation) is present. Aortic Valve: There is mild regurgitation. There is no evidence of aortic valve stenosis. Tricuspid Valve: There is mild regurgitation. RVSP estimated at <30 mmHg. ECG 06/24/2023: Sinus tachycardia, occasional PVCs. CTA chest 06/24/2023: IMPRESSION: No CT findings to suggest pulmonary embolism. Large masslike lesions at the right hilar and subcarinal region compatible With malignancy, with numerous, pathologically enlarged mediastinal, upper abdominal and paraesophageal lymph nodes seen. Moderate right pleural effusion. Echocardiogram 06/16/2023: Global left ventricular systolic function is difficult to assess but appears preserved, visually estimated ejection fraction is 50 to 55%. Normal right ventricular size and systolic function. Biatrial enlargement. Diastolic function is indeterminate. No significant valvular abnormalities. Anterior free space, trivial effusion versus fat pad. Device check 09/11/2020: 8 beats of nonsustained ventricular tachycardia and 7 beats of nonsustainedventricular tachycardia in July 2020 Device check 04/18/2020: ICD functioning appropriately. Episodes of NSVT last 12/29/2019. Blood testing 05/04/2020 normal TSH and free T4, normal BMP, CK 181 [55-1 70], MCV 101 otherwise normal CBC Echocardiogram 04/25/2020: Mildly reduced left ventricular systolic function, ejection fraction 40-50%. Normal right ventricular systolic function. Moderate atrial dilatation. Mild aortic and tricuspid regurgitation. Normal right-sided pressures. Prior testing: Blood testing 02/18/2020: BUN 12, creatinine 1.2, potassium 3.8. Blood testing 09/22/2019: Hemoglobin 15.6, platelets 315, BUN 21, creatinine 1.68, LFTs within normal limits, cholesterol 143, HDL 41, triglycerides 171, LDL 68 Echo 10/12/17 at the [facility] LVEF ~45%. ECG 04/27/2017: sinus rhythm with occasional PVCs, non specific intraventricular conduction delay, T-wave abnormality consider lateral ischemia. QRS 122 ms. Comparable to prior ECGs. Cr 1.05 on 12/29/2016. CBC and BMP on 02/26/2017 non revealing. Echocardiogram on 04/16/2017: Global left ventricular systolic function is moderately to severely reduced (Visually estimated EF 30-35%). The left ventricle is moderately enlarged. Left ventricular wall thickness is moderately increased. Concentric left ventricular hypertrophy. Diffuse global hypokinesis. Grade 1, mild diastolic dysfunction (abnormal relaxation). Normal right ventricular systolic function. The right ventricle is normal in size. Unable to assess right sided pressures due to lack of measurable tricuspid regurgitation. Compared to the prior study of 01/28/17 the ejection fraction has improved from 20 to 25% to 30 to 35%. Bypass surgery: Urgent coronary artery bypass grafting x5 with a left internal mammary artery to the LAD, a sequential left radial artery graft to the diagonal and the ramus intermedius, right radial artery graft tothe OM1 saphenous vein graft to the PDA, harvesting of the left upper extremity radial artery, harvesting of the right upper extremity radial artery, endoscopic harvesting of the left greater saphenous vein. Echocardiogram 12/12/2016: Global left ventricular systolic function is severely reduced (Visually estimated EF 10-15%). The left ventricle is severely enlarged. Diffuse global hypokinesis. Grade 2, moderate diastolic dysfunction (pseudonormalized LV filling pattern). Right ventricular systolic function appears reduced. The left atrium is severely enlarged. The right atrium is moderately enlarged. Moderate mitral regurgitation. Mild aortic valve regurgitation. Mild tricuspid regurgitation. Doppler studies suggest moderately elevated right sided pressures (elevated pulmonary pressure). Echocardiogram 01/28/2017: Global left ventricular systolic function is severely reduced (Visually estimated EF 20-25%). The left ventricle is moderately enlarged. Left ventricular wall thickness is moderately increased. Concentric left ventricular hypertrophy. Severely reduced right ventricular systolic function. Limited study for assessment of the left ventricular systolic function. Assessment/Plan Diagnoses and all orders for this visit: Shortness of breath - CBC and differential; Future - Basic metabolic panel; Future - Pro-BNP; Future - XR chest 2 views; Future Paroxysmal atrial fibrillation (CMS/HCC) Coronary artery disease involving [place] coronary artery of un[place]et heart without angina pectoris Heart failure with improved ejection fraction (HFimpEF) (CMS/HCC) - CBC and differential; Future - Basic metabolic panel; Future - Pro-BNP; Future History of coronary artery bypass surgery Factor V Leiden Implantable cardioverter-defibrillator (ICD) in situ 1. Heart failure with improved ejection fraction: his most recent echocardiogram in September 2024 showed LVEF around 45 to 50%. Normal right-sided pressures. he has been having worsening symptoms of shortness of breath. His exam shows mild volume overload. I am going to investigate by blood testing CBC, BMP and proBNP as well as a chest x-ray. I asked himto take Bumex 1 mg every other day on a regular basis. I will have him undergo the echocardiogram that I previously ordered sooner. Based on the results I will determine further steps in the management. He used to be on Entresto in the past and this was stopped as he was undergoing chemotherapy. Wecan consider resuming Entresto in the near future. 2. CAD s/p bypass surgery: he has no angina. I had previously stopped aspirin to reduce the risk ofbleeding in light of his cancer diagnosis. 3. Paroxysmal atrial fibrillation: he is currently on Eliquis therapy due to paroxysmal atrial fibrillation as detected on his prior examination and device checks as well as for factor V Leiden mutation. He is on 2.5 mg twice daily as he had bleeding issues with a higher dose. He is currently in sinus rhythm by exam. At this time I am not going to make changes. We previously discussed left atrialappendage occlusion procedure as an alternative to standard dose anticoagulation for risk reductionof stroke and atrial fibrillation and we decided to maintain low-dose Eliquis 2.5 mg twice daily which he will need long- term to prevent lower extremity DVT. I will plan on seeing him in follow-up in 1 month. Follow up in about 1 month (around 04/03/2025). Francisco Tena MD documented in this encounter Plan of Treatment DateTypeDepartmentCare Team (Latest Contact Info)Vnmdgozpbbi29/31/2025 11:45 AM ESTOffice Visit [facility] [address] [phone] Francisco Tena MD [address] [facility] [address] [facility] [place] [address] NameTypePriorityAssociated DiagnosesOrder ScheduleCBC and differentialLabRoutine Heart failure with improved ejection fraction (HFimpEF) (CMS/HCC) Shortness of breath Expected: 03/03/2025 (Approximate), Expires: 03/03/2026asic metabolic panelLab Routine Heart failure with improved ejection fraction (HFimpEF) (CMS/HCC) Shortness of breath Expected: 03/03/2025 (Approximate), Expires: 03/03/2026Pro-BNPLabRoutine Heart failure with improved ejection fraction (HFimpEF) (CMS/HCC) Shortness of breath Expected: 03/03/2025 (Approximate), Expires: 03/03/2026XR chest 2 viewsImaging Routine Shortness of breath Expected: 03/03/2025, Expires: 03/03/2026documented as of this encounter Visit Diagnoses Diagnosis Shortness of breath- Primary Paroxysmal atrial fibrillation (CMS/HCC) Atrial fibrillation Coronary artery disease involving [place] coronary artery of [place]et heart without angina pectoris Heart failure with improved ejection fraction (HFimpEF) (CMS/HCC) History of coronary artery bypass surgery Postsurgical aortocoronary bypass status Factor V Leiden Primary hypercoagulable state Implantable cardioverter-defibrillator (ICD) in situ documented in this encounter Care Teams Team MemberRelationshipSpecialtyStart DateEnd Date Emilia Avery, MIREYA [address] [place] [address] PCP - GeneralNurse Practitioner10/25/24documented as of this encounter
--- OUTSIDE RECORDS SUMMARY | 2025-03-03 12:22 | XMS_ITS | Clinical Summary ---
Author Organization [facility] Address [address] [address] [facility] [place] [address] Phone Care Team Providers Care Cage Operator Name Role Phone Unavailable Primary Care Provider Unavailabl e Social History Tobacco UseTypesPacks/DayYears UsedDateSmoking Tobacco: Never AssessedSex and Gender InformationValueDate RecordedSex Assigned at BirthNot on fileLegal Sex Male02/21/2022 11:38 AM ESTGender IdentityNot on fileSexual OrientationNot on file Plan of Treatment Not on file
--- OUTSIDE RECORDS SUMMARY | 2025-03-03 12:22 | XMS_ITS ---
Author Organization [employer] [facility] Address [id number] [place] [address] Care Team Providers Care Electronics Design Engineer Name Role Phone Antoine Coulter MD Primary Care Provider [phone] Active Problems ProblemNoted DateDiagnosed DateHistory of tiyuxhkwlma84/10/2025Hyponatremia 10/03/20233280Zqbiyyfaagi65/06/0938Dqzhiabohnmcum80/06/2024Enteritis due to Zonveyosv16/06/2024Hodgkin lymphoma, unspecified Hodgkin lymphoma type, unspecified body zswffp5010/02/2023aroxysmal atrial qdtwnolakily85/20/2024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07/22/2023Multifocal nikccyfri20/03/2024Mass of lung06/25/2023enign hypertensive cardiomyopathy with heart cdwnyzy6607/12/2021 Overview (07/07/2023): Last Assessment & Plan: Currently b/p is stable 100/61, med adjustments for c/o hypotension- and new med list provided to pt- he voiced understanding Chronic systolic heart yvjkycz7407/12/2021 Overview (07/07/2023): Last Assessment & Plan: NYHC II- currently euvolemic without exacerbation Repeat echocardiogram to assess cardiac function, EF, Valvular function and rt sided pressures Continue GDMT- Resume coreg 3.125 mg bid, decrease entresto to 1/2 tab bid in light of hypotension,and will reduce Diuretic therapy - Decrease bumex to 1 mg daily and extended coversation with pt to decrease fluid intake to 1.5- 2L per day- since he says he drinks a lot of fluid and added salt/gatorade for low b/p Monitor daily weights, I&O, fluid restriction 1.5-2L/day, renal function and electrolytes- HTN (hypertension)07/12/2021Factor V Leiden exqgoeaf88/01/2019 Overview (07/07/2023): Last Assessment & Plan: On Eliquis anticoagulation Jlcwqtatwrhpyu27/18/2017 Overview (07/07/2023): Last Assessment & Plan: Sanders heart class II Currently euvolemic without exacerbation Continue goal-directed medical therapy Patient admits low-sodium diet, fluid restriction and monitor his weight daily states has been verystable some fluctuation here and there between 3 pounds Coronary hrwtegemhpswfum83/18/2017 Overview (07/07/2023): Last Assessment & Plan: Coronary artery disease is Stable Continue GDMT- ASA, lipitor, coreg continue risk factor modifications- heart healthy diet, regular exercise as tolerated and continue all medications. 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 ([facility]-HCC) Treatment Medications* * dacarbazine (DTIC) chemo IVPB piggyback * DOXOrubicin (ADRIAMYCIN) * nivolumab (OPDIVO) chemo IVPB piggyback * vinBLAStine (VELBAN) chemo IVPB piggyback Past Treatment and Therapy Plans Plan NameStart DateDiscontinue DateTreatment MedicationsDiscontinue ReasonPlan ProviderCyclesOP Hodgkin's lymphoma AVD with BRENTUXimab/08/2024* brentuximab vedotin (ADCETRIS) chemo IVPB piggyback * dacarbazine (DTIC) chemo IVPB piggyback * DOXOrubicin (ADRIAMYCIN) * vinBLAStine (VELBAN) chemo IVPB piggyback Estela Atkinson MD7 of 8 cycles started Lifetime Dose Tracking * ChemicalLifetime DoseAutomatic EntryManual Euzxqlygikcxmykn138.155 mg/m2 (687 mg)297.155 mg/m2 (687 mg)0 mg/m2 (0 mg)Anthracycline vrvonaznpn11.035 Units/m2 (152.667 Units)66.035 Units/m2 (152.667 Units)0 Units/m2 (0 Units)Fluoroscopy1 mGy1 mGy0 mGy Resolved Problems ProblemNoted DateDiagnosed DateResolved DateAbnormal WBC count10/07/2023 09/16/20247330Ubiyeoel71Dehydration
--- OUTSIDE RECORDS SUMMARY | 2025-03-03 12:22 | XMS_ITS | Clinical Summary ---
Author Organization [facility] Address [address] [place] [address] Care Team Providers Care Gathering Machine Setter Name Role Phone Antoine Coulter MD Primary Care Provider [phone] Allergies No known active allergies Medications MedicationSigDispense QuantityRefillsLast FilledStart DateEnd DateStatus atorvastatin (Lipitor) 20 MG tablet Take 20 mg by mouth at huwaemh5711/16/2023ctive bumetanide (Bumex) 2 MG tablet Take 2 mg by mouth Daily as neededActive apixaban (Eliquis) 5 MG tablet Take 5 mg by mouth in the morning and 5 mg in the evening.10/13/2023ctive amiodarone (Pacerone) 200 MG tablet Take 1 tablet by mouth Daily01/05/2024ctive digoxin (Lanoxin) 250 MCG tab;et Take 250 mcg by mouth Daily10/13/2023ctive potassium chloride CR (Klor-Con M20) 20 MEQ ER tablet Take 20 mEq by mouth in the morning and 20 mEq in the evening.10/12/2023ctive mirtazapine (Remeron) 15 MG tablet Take 15 mg by mouth at bedtimeActive metoprolol succinate XL (Toprol-XL) 25 MG 24 hr tablet Take 12.5 mg by mouth Daily10/12/2023ctive magnesium oxide (Mag-Ox) 400 MG tablet Take 400 mg by mouth in the morning.10/12/2023ctive calcium carbonate 1500 (600 Ca) MG tablet Take 600 mg by mouth DailyActive Active Problems ProblemNoted DateDiagnosed DateBenign essential edrvzvfmjeax51/25/2024 Msmlszlcxkbb11/25/2024izziness and bpbldrylz70/25/2024rug-induced insomnia 02/22/2024Long term (current) use of prbyotgifztiih63/25/2024Neuropathy of both feet02/22/20246677Eoycmbxrd29/25/0373Kewxrqhtrjr76/25/2024Tubular adenoma of colon 02/22/2024bnormal WBC count10/07/20232837Ozfkgmrrwhu13/06/2024Hypomagnesemia 10/03/20232849Thynssyehtzz79/06/2024Hodgkin ekgznprw05/05/2024aroxysmal atrial /20/2024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07/22/2023Multifocal ccrdlkqzo02/03/2024Mass of lung06/25/2023enign hypertensive cardiomyopathy with heart ycuuhxz9007/12/2021 Overview (02/19/2024): Last Assessment & Plan: Currently b/p is stable 100/61, med adjustments for c/o hypotension- and new med list provided to pt- he voiced understanding Chronic systolic heart sacvatu8007/12/2021 Overview (02/19/2024): Last Assessment & Plan: NYHC II- currently [...] fluid restriction 1.5-2L/day, renal function and electrolytes- History of coronary artery bypass ymothli2007/12/20213114Wiyynbgjukjz47/15/2022 Implantable cardioverter-defibrillator (ICD) in situ07/12/2021Nonsustained ventricular kitjvwoylxo71/15/2022Factor V Leiden mutation ([facility])12/28/2018 Overview (02/19/2024): Last Assessment & Plan: On Eliquis anticoagulation Obesity, Class II, BMI 35-39.910/3583Jyertdyzfzltuy70/18/2017 Overview (02/19/2024): Last Assessment & Plan: [place] heart class II Currently euvolemic without exacerbation Continue goal-directed medical therapy Patient admits low-sodium diet, fluid restriction and monitor his weight daily states has been verystable some fluctuation here and there between 3 pounds Coronary ttjanahnhowarah88/18/2017 Overview (02/19/2024): Last Assessment & Plan: Coronary artery disease is Stable Continue GDMT- ASA, lipitor, coreg continue risk factor modifications- heart healthy diet, regular exercise as tolerated and continue all medications. Resolved Problems ProblemNoted DateDiagnosed DateResolved PxplJlndjzhkejk37 Fgfkbxmt14Enteritis due to Qphrvbjki75 Family History Medical HistoryRelationNameCommentsHeart failureFatherCancerMotherRelationName StatusCommentsFatherMother Social History Tobacco UseTypesPacks/DayYears UsedDateSmoking Tobacco: NeverSmokeless Tobacco: Never Tobacco Cessation:Counseling Given: Not Answered Alcohol UseStandard Drinks/WeekCommentsNot Currently0 (1 standard drink = 0.6 oz pure alcohol)Sex and Gender InformationValueDate RecordedSex Assigned at Not on fileLegal UrvXcar75/20/2024 10:28 AM ESTGender IdentityNot on fileSexual OrientationNot on file Last Filed Vital Signs Vital SignReadingTime TakenCommentsBlood Wqhiyzhy244/7603 9:04 AM EST Qmudo41569 9:04 AM ESTTemperature--Respiratory Rate--Oxygen Saturation-- Inhaled Oxygen Concentration--Ubptoc46.7 kg (200 lb)05/31/2024 9:04 AM ESTHeight 185.4 cm (6' 1 )05/31/2024 9:04 AM ESTBody Mass Index26.3903 9:04 AM EST Plan of Treatment Not on file Insurance * Guarantor: Raul Haywood TypeRelation to PatientDate of BirthPhone Billing AddressPersonal/[place]14/04/1956 [address] [address] Care Teams Team MemberRelationshipSpecialtyStart DateEnd Antoine Coulter MD [address] [place] [address] PCP - GeneralFamily Arotpaui25/25/24
--- OUTSIDE RECORDS SUMMARY | 2025-03-03 12:22 | XMS_ITS | Clinical Summary ---
Author Organization [place] tem Address [id number] [address] [place] [address] Care Team Providers Care Seam Finisher Name Role Phone Antoine Coulter MD Primary Care Provider [phone] Allergies No known active allergies Medications MedicationSigDispense QuantityRefillsLast FilledStart DateEnd DateStatus apixaban (ELIQUIS) 5 mg tablet Take 0.5 tablets (2.5 mg total) by mouth in the morning and 0.5 tablets (2.5 mg total) before bedtime.01/20/2020Active atorvastatin (LIPITOR) 20 mg tablet Take 1 tablet (20 mg total) by mouth in the morning.01/20/2020Active mirtazapine (REMERON) 15 mg tablet Take 1 tablet (15 mg total) by mouth nightly.Active digoxin (LANOXIN) 250 mcg tablet Take 1 tablet (250 mcg total) by mouth in the morning.Active metoprolol succinate XL (TOPROL XL) 25 mg 24 hr tablet Take 0.5 tablets (12.5 mg total) by mouth in the morning.10/12/2023ctive potassium chloride (KLOR-CON M 20) 20 MEQ CR tablet Take 1 tablet (20 mEq total) by mouth in the morning and 1 tablet (20 mEq total) before bedtime. Plan to stop the potassium supplementation once diarrhea has resolved.. 60 tablet ctive magnesium oxide (MAGOX) 400 mg tablet Take 1 tablet (400 mg total) by mouth in the morning. 30 tablet ctive calcium carbonate (OS-SARAH BETH) 600 mg elemental (1,500 mg) tablet Take 1 tablet (600 mg total) by mouth daily with breakfast.Active acetaminophen (TYLENOL EXTRA STRENGTH) 500 mg tablet Take 2 tablets (1,000 mg total) by mouth in the morning and 2 tablets (1,000 mg total) before bedtime.4Active amiodarone (PACERONE) 200 mg tablet Take 1 tablet (200 mg total) by mouth in the morning.4Active bumetanide (BUMEX) 2 mg tablet Take 1 tablet (2 mg total) by mouth daily as needed (for swelling).Active B complex-vitamin C-folic acid (NEPHROCAP) 1 mg capsule Take 1 capsule by mouth in the morning.Active docusate sodium (COLACE) 100 mg capsule Take 1 capsule (100 mg total) by mouth in the morning and 1 capsule (100 mg total) before bedtime.Active dexAMETHasone (DECADRON) 4 mg tablet 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 60 tablet 5Active loratadine (CLARITIN REDITABS) 10 mg disintegrating tablet Dissolve 1 tablet (10 mg total) on tongue in the morning.Active famotidine (PEPCID) 40 mg/5 mL (8 mg/mL) suspension Take 2.5 mL (20 mg total) by mouth in the morning and 2.5 mL (20 mg total) before bedtime.Active ibuprofen (ADVIL,MOTRIN) 200 mg tablet Take 1 tablet (200 mg total) by mouth every 6 (six) hours as needed for pain. Active DM/p-ephed/acetaminoph/doxylam (NYQUIL D ORAL) Take by mouth as needed.Active gabapentin (NEURONTIN) 300 mg capsule Indications:Hodgkin lymphoma, unspecified Hodgkin lymphoma type, unspecified body region (CMS-HCC)TAKE 1 CAPSULE BY MOUTH THREE TIMES DAILY 90 capsule 5Active Active Problems ProblemNoted DateDiagnosed DateHistory of jfakefeaong67/10/2025Hyponatremia 10/03/20238990Ilxuiszihwc05/06/8556Ibxbzalaxfxjoa33/06/2024Enteritis due to Kdqzocvfk47/06/2024Hodgkin lymphoma, unspecified Hodgkin lymphoma type, unspecified body dgcpvl6110/02/2023aroxysmal atrial rapevedbvnkt63/20/2024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07/22/2023Multifocal okcbtajed56/03/2024Mass of lung06/25/2023enign hypertensive cardiomyopathy with heart imrgtle5507/12/2021 Overview (07/07/2023): Last Assessment & Plan: Currently b/p is stable 100/61, med adjustments for c/o hypotension- and new med list provided to pt- he voiced understanding Chronic systolic heart hwnkfhh3207/12/2021 Overview (07/07/2023): Last Assessment & Plan: [facility] II- currently euvolemic without exacerbation Repeat echocardiogram [...] function and electrolytes- HTN (hypertension)07/12/2021Factor V Leiden /01/2019 Overview (07/07/2023): Last Assessment & Plan: On Eliquis anticoagulation Memvnhlkkwbqjo23/18/2017 Overview (07/07/2023): Last Assessment & Plan: [place] heart class II Currently euvolemic without exacerbation Continue goal-directed medical therapy Patient admits low-sodium diet, fluid restriction and monitor his weight daily states has been verystable some fluctuation here and there between 3 pounds Coronary xbabswccvgzdylb53/18/2017 Overview (07/07/2023): Last Assessment & Plan: Coronary artery disease is Stable Continue GDMT- ASA, lipitor, coreg continue risk factor modifications- heart healthy diet, regular exercise as tolerated and continue all medications. 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)01/17/20258081Edkjab69/18/2025Refill [facility] - Medical Oncology [address] [place] [phone] Wallace Atkinson MD Hodgkin lymphoma, unspecified Hodgkin lymphoma type, unspecified body region (CMS-HCC)12/09/2024 3:00 PM EDTInfusion [facility] [address] [place] [phone] 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)12/09/20241905Xyeyzd02/11/2025 11:30 AM EDTInfusion Neela Nelson [facility] - Medical Oncology [address] [place] [phone] 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)12/08/2024 11:15 AM EDTOffice Visit [facility]ela [facility] - Medical Oncology [address] [place] [phone] Wallace Atkinson MD Hodgkin lymphoma, unspecified Hodgkin lymphoma type, unspecified body region (CMS-HCC) (Primary Dx); 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) 12/08/2024Documentation [facility] - Medical Oncology [address] [place] [phone] Sonya Reyes RN 12/07/2024 1:00 PM EDTInfusion [facility] - [facility] [address] [place] [phone] 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); Hodgkin lymphoma, unspecified Hodgkin lymphoma type, unspecified body region (CMS-HCC); Essential (primary) hypertension; Fatigue, unspecified type; Hogvayh4612/05/2024Travelfrom Last 3 Months Immunizations ImmunizationAdministration DatesNext DueCovid-19, Mrna, Lnp-s, Pf,brenda- sucrose,30 Mcg/0.3ml Omslbqwu77/17/2023Influenza, High-dose, Quadrivalent 01/02/2023Influenza, Im Trivalent Cywitpfhxrjv81/14/2019,03/17/2013Influenza, Injectable, quadrivalent (PF)01/10/2022,12/30/2020,01/21/2020Pneumococcal Conjugate 20-curnlp7301/13/2023RSV, bivalent, protein subunit RSVpreF, diluent reconstituted, 0.5 mL, PF01/13/2023Zoster Vaccine Inyggzwxyrq62/24/2021, 12/30/2020 Family History Medical HistoryRelationNameCommentsCoronary artery diseaseBrother 1CancerBrother 2Throat cancerBrother 2Coronary artery diseaseFatherCancerMotherColon cancer MotherRelationNameStatusCommentsBrother 1DeceasedBrother 2DeceasedFatherDeceased MotherDeceased Social History Tobacco UseTypesPacks/DayYears UsedDateSmoking Tobacco: NeverSmokeless Tobacco: Never Tobacco Cessation:Counseling Given: Not Answered Alcohol UseStandard Drinks/WeekCommentsNever0 (1 standard drink = 0.6 oz pure alcohol)[facility] UtilitiesAnswerDate RecordedIn the past 12 months has the electric, gas, oil, or water company threatened to shut off services in your home?No 4AUDIT-CAnswerDate RecordedQ1: How often do you have a drink containing alcohol?Never03/08/2020Q2: How many drinks containing alcohol do you have on a typical day when you are drinking?Not asked03/08/2020Q3: How often do you have six or more drinks on one occasion?Never03/08/2020PRAPARE - TransportationAnswer Date RecordedIn the past 12 months, has lack of transportation kept you from medical appointments or from getting medications?No10/02/2023In the past 12 months, has lack of transportation kept you from meetings, work, or from getting things needed for daily living?No10/02/2023Housing InstabilityAnswerDate RecordedAre you worried or concerned that in the next two months you may not have stable housing that you own, rent or stay in as a part of a household?No 4ChildcareAnswerDate KhrbjmwpNzkfwiuwcOworlcr38/13/2020EmploymentAnswer Date TkakhwayQpdnkjigbzYvzmdjw93/13/2020Hunger ScreeningAnswerDate Recorded Within the past 12 months we worried whether our food would run out before we got money to buy more.Never True02/14/2024Within the past 12 months the food we bought just didn't last and we didn't have money to get more.Never True 4Purpose - LifeAnswerDate RecordedPurpose and direction in lifeUnknown 04/12/2020ex and Gender InformationValueDate RecordedSex Assigned at BirthNot on fileLegal ErjAmsx9111/02/2014 11:39 AM EDTGender IdentityNot on fileSexual OrientationNot on file Last Filed Vital Signs Vital SignReadingTime TakenCommentsBlood Wtlhxrno66/5809 2:58 PM EDT Cwlug9994 2:58 PM UKDMlwitcgjtga52.6 ??C (97.8 ??F)12/09/2024 2:58 PM EDTRespiratory Cvsk077412/09/2024 2:58 PM EDTOxygen Cceiivkifa86%12/09/2024 2:58 PM EDTInhaled Oxygen Concentration--Ehdelu942.7 kg (239 lb 9.6 oz)12/09/2024 2:58 PM LSRZntqrz417 cm (6' 0.05 )12/09/2024 2:58 PM EDTBody Mass Index32.45 12/09/2024 2:58 PM EDT Plan of Treatment DateTypeDepartmentCare Team (Latest Contact Info)Ynkfqqmzlch77/15/2025 10:00 AM ESTAppointment [facility] [address] [facility] [place] [phone] Wallace Atkinson MD [address] [place] [address] 03/17/2025 9:00 AM ESTAppointment [facility] - [facility] [address] [place] [phone] 03/17/2025 9:30 AM ESTInfusion [facility] - Medical Oncology [address] [place] [phone] 04/06/2025 11:00 AM ESTOffice Visit [facility] [address] [place] [phone] Wallace Atkinson MD [address] [place] [phone] 04/13/2025 2:00 PM ESTOffice Visit [facility] [address] [place] [phone] Lynnette Abbott MD [address] [place] [address] [phone] Health MaintenanceDue DateLast DoneCommentsStatin Use: Vjnzhezlazztzr70/04/1958 Depression Wqtssosbl07/04/1970Adult BMI Follow Up Plan01/01/1976DTaP,Tdap and Td Vaccines (1 - Tdap)1976COVID-19 Vaccine (8 - 2024- season)2024 01/05/2024, 01/13/2023, 01/24/2022, Additional history existsInfluenza Vaccine , 01/02/2023, 01/10/2022, Additional history existsFall Risk Yaaaaygpf83/01/2025Tobacco Keyhghdkn46/dult BMI Kuhwlxowv30Zoster (Shingles) SeeuywiUhcyozwfw60/24/2021, 12/30/2020SV ( or age 60+ yrs)Gxaeeusjr66/17/2023 Goals GoalPatient Goal TypeAssociated ProblemsRecent ProgressPatient-Stated?Author Return home when Deirder Garcia, RN Note: Evaluation of progress towards goal: Patients goal is to have a safe discharge home with self care and family support. Resume home care with [facility]. Medical Devices ImplantedTypeAreaManufacturerDevice IdentifierShelf Expiration DateModel / Serial / LotPort Powerport Clrvu Argd 8fr 1 Lum Ltwt Intmd Maria Guadalupe Pu - [id number] Implanted:Qty: 1 on 08/05/2023 by Jose Enrique Ashby MD at [facility] Peripheral [id number] / / [id number] Procedures Procedure NamePriorityDate/TimeAssociated DiagnosisCommentsTHYROID PROFILE INCLUDES TSH OV7WOIL9412/07/2024 1:12 PM EDT Hodgkin lymphoma, unspecified Hodgkin lymphoma type, unspecified body region (CMS-HCC) Essential (primary) hypertension Fatigue, unspecified type Malaise COMPREHENSIVE METABOLIC QPKOAWVWN86/10/2025 1:12 PM EDT 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) CBC WITH AUTO AADTJHNGKZBBRKXB54/10/2025 1:12 PM EDT 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) from Last 3 Months Results * Thyroid profile includes TSH FT4 (12/07/2024 1:12 PM EDT)ComponentValueRef RangeTest MethodAnalysis TimePerformed AtPathologist SignatureFREE T41.110.61 - 1.60 ng/dL12/07/2024 5:03 PM EDTPCLEVELAND CLINIC AVON HOSPITALTSH3.30 0.49 - 4.67 uIU/mL12/07/2024 5:03 PM [facility] Specimen (Source)Anatomical Location / LateralityCollection Method / Volume Collection TimeReceived TimeBloodVenous blood / UnknownPort / Unknown 12/07/2024 1:12 PM EDT12/07/2024 1:12 PM EDT Narrative Authorizing ProviderResult TypeResult StatusChanatalya Atkinson MDLAB BLOOD ORDERABLES Final ResultPerforming OrganizationAddressCity/State/ZIP CodePhone Number [facility] [address] [place] [address], * (ABNORMAL) CBC auto differential (12/07/2024 1:12 PM EDT)ComponentValueRef RangeTest MethodAnalysis TimePerformed AtPathologist AhjkekyobOAR99.1(H)4 - 11 x10E9/L12/07/2024 5:12 PM EDTPCLEVELAND CLINIC AVON HOSPITALRBC Count4.09 (L)4.1 - 5.7 X10E12/L12/07/2024 5:12 PM [facility] Lktfhxkvmu60.113 - 17 g/dL12/07/2024 5:12 PM EDTPCLEVELAND CLINIC AVON HOSPITALHematocrit39.939 - 50 %12/07/2024 5:12 PM EDCHERRINGTON HOSPITALMCV9780 - 100 fL12/07/2024 5:12 PM EDTPCLEVELAND CLINIC AVON HOSPITALMCH31.927 - 34 pg12/07/2024 5:12 PM [facility]ITALMCHC32.832 - 36 g/dL12/07/2024 5:12 PM [facility]ITALRDW19.5(H)11.5 - 15 %12/07/2024 5:12 PM [facility]OSPITALPlatelet Hxjnr975970 - 450 X10E9/L12/07/2024 5:12 PM EDT [facility]MPV10.17 - 12 fL12/07/2024 5:12 PM EDT [facility]ITALMetamyelocytes %1%12/07/2024 5:12 PM EDT [facility]Comment:This is an appended report. These results have been appended to a previously preliminary verified report.Bands % 3%12/07/2024 5:12 PM [facility]ITALComment:This is an appended report. These results have been appended to a previously preliminary verified report.Neutrophils %51%12/07/2024 5:12 PM [facility]Comment:This is an appended report. These results have been appended to a previously preliminary verified report.Lymphocytes %36% 12/07/2024 5:12 PM [facility]Comment:This is an appended report. These results have been appended to a previously preliminary verified report.Monocytes %8%12/07/2024 5:12 PM [facility]Comment:This is an appended report. These results have been appended to a previously preliminary verified report.Eosinophils %1%12/07/2024 5:12 PM [facility]Comment:This is an appended report. These results have been appended to a previously preliminary verified report. nNML367 5:12 PM [facility]ITALComment:This is an appended report. These results have been appended to a previously preliminary verified report.Neutrophils Absolute (M)9.1(H)1.5 - 6.6 10*3/uL 12/07/2024 5:12 PM [facility]ITALComment:This is an appended report. These results have been appended to a previously preliminary verified report.Lymphocytes Absolute6.2(H)1.0 - 3.5 10*3/uL12/07/2024 5:12 PM [facility]Comment:This is an appended report. These results have been appended to a previously preliminary verified report. Monocytes Absolute1.4(H)0.0 - 0.9 10*3/uL12/07/2024 5:12 PM [facility]Comment:This is an appended report. These results have been appended to a previously preliminary verified report.Eosinophils Absolute0.20.0 - 0.4 10*3/uL12/07/2024 5:12 PM [facility]Comment:This is an appended report. These results have been appended to a previously preliminary verified report.Differential TypeMANUAL OLCBFJMAPSZB17/10/2025 5:12 PM [facility]ITALComment: This is an appended report. These results have been appended to a previously preliminary verified report.Specimen (Source)Anatomical Location / Laterality Collection Method / VolumeCollection TimeReceived TimeBloodVenous blood / UnknownPort / Trcirfm0512/07/2024 1:12 PM EDT12/07/2024 1:12 PM EDT Narrative Authorizing ProviderResult TypeResult StatusChang Jhonathan Atkinson [facility] BLOOD ORDERABLES Final ResultPerforming OrganizationAddressCity/State/ZIP CodePhone Number [facility] [address] [place] [address], * (ABNORMAL) Comprehensive metabolic panel (12/07/2024 1:12 PM EDT)Component ValueRef RangeTest MethodAnalysis TimePerformed AtPathologist SignatureSODIUM 280231 - 146 mmol/L12/07/2024 4:44 PM [facility] POTASSIUM4.13.5 - 5.0 mmol/L12/07/2024 4:44 PM [facility]ITALCHLORIDE10398 - 109 mmol/L12/07/2024 4:44 PM [facility]OSPITALCARBON DQXHNNX9985 - 32 mmol/L12/07/2024 4:44 PM [facility]ITALANION GAP95 - 15 mmol/L12/07/2024 4:44 PM EDT [facility]ITALBLOOD UREA GTLGYLIH804 - 27 mg/dL12/07/2024 4:44 PM [facility]OSPITALCREATININE0.830.70 - 1.20 mg/dL 12/07/2024 4:44 PM [facility]ITALComment:METHOD TRACEABLE TO IDMS GYHFSHPJAYBPECK011(H)65 - 99 mg/dL12/07/2024 4:44 PM EDT [facility]ITALCALCIUM8.98.5 - 10.5 mg/dL12/07/2024 4:44 PM [facility]ITALTOTAL PROTEIN6.56.0 - 8.0 g/dL 12/07/2024 4:44 PM [facility]OSPITALALBUMIN3.63.2 - 5.3 g/dL12/07/2024 4:44 PM [facility]ITALALKALINE UBGZXZPSKUC7292 - 130 U/L12/07/2024 4:44 PM [facility]ITALAST36<=41 U/L12/07/2024 4:44 PM [facility] ALT31<=40 U/L12/07/2024 4:44 PM [facility] BILIRUBIN,TOTAL0.50.3 - 1.2 mg/dL12/07/2024 4:44 PM [facility] URBA[facility] HOSPITALEGFR Non-Race Dependent>90>=60 ml/min/1.73sq.m012/07/2024 4:44 PM [facility]ITALComment: eGFR not reported due to non-numeric value for Creatinine. Reported eGFR is based on the CKD-EPI 2020 equation that does not use a race coefficient. Specimen (Source)Anatomical Location / LateralityCollection Method / Volume Collection TimeReceived TimeBloodVenous blood / UnknownPort / Jdfmmcy8712/07/2024 1:12 PM EDT12/07/2024 1:12 PM EDT Narrative Authorizing ProviderResult TypeResult StatusChang Jhonathan Atkinson MDLAB BLOOD ORDERABLES Final ResultPerforming OrganizationAddressCity/State/ZIP CodePhone Number [facility] [address] [place] [address], [place] from Last 3 Months Insurance Advance Directives TypeDate RecordedPatient RepresentativeExplanationLiving Will07/27/2023 12:01 PM * Full Code (Latest Code Status on File) Date ActivatedDate InactivatedComments10/02/2023 10:10 PM10/12/2023 6:12 PM * Full Code Date ActivatedDate InactivatedComments06/25/2023 2:35 AM07/17/2023 11:36 AM Care Teams Team MemberRelationshipSpecialtyStart DateEnd Date Antoine Coulter MD [address] [place] [address] PCP - GeneralFamily Ggdaadvo88/17/24
--- OUTSIDE RECORDS SUMMARY | 2025-03-03 12:22 | XMS_ITS | Clinical Summary ---
Author Organization [facility] Address [address] [place] [address] Care Team Providers Care Instructor Programmable Controllers Name Role Phone Emilia Avery FINE J[employer] SALES ASSOCIATE-C Primary Care Provider [phone] Allergies No known active allergies Medications MedicationSigDispense QuantityRefillsLast FilledStart DateEnd DateStatus ipratropium-albuteroL (Duo-Neb) 0.5-2.5 mg/3 mL nebulizer solution Inhale 3 mL.07/16/2023ctive mirtazapine (Remeron) 15 mg tablet Take 15 mg by mouth at bedtime.Active apixaban (Eliquis) 5 mg tablet Indications:Coronary artery disease involving reno-sparks heart, unspecified vessel or lesion type, unspecified whether angina presentTake 1 tablet (5 mg) by mouth in the morning and at bedtime. 60 tablet 11010/13/2023ctive Additional Information Patient taking differently: 2.5 mgoral2 times daily, Reported on 03/03/2025 bumetanide (Bumex) 1 mg tablet Indications:Heart failure with improved ejection fraction (HFimpEF) (CMS/[facility]) Take 1 tablet (1 mg) by mouth if needed each day (leg swelling, worsening dyspnea). 90 tablet ctive magnesium oxide (Mag-Ox) 400 mg (241.3 mg magnesium) tablet Take 400 mg by mouth in the morning.10/12/2023ctive calcium carbonate 600 mg calcium (1,500 mg) tablet Take 600 mg by mouth.Active gabapentin (Neurontin) 300 mg capsule Take 300 mg by mouth at bedtime.Active metoprolol succinate XL (Toprol-XL) 25 mg 24 hr tablet Indications:Coronary artery disease involving reno-sparks coronary artery of reno-sparks heart without angina pectoris,Heart failure with improved ejection fraction (HFimpEF) (CMS/HCC)Take 0.5 tablets (12.5 mg) by mouth once daily as directed. 45 tablet ctive atorvastatin (Lipitor) 20 mg tablet Indications:Coronary artery disease involving re[place]-sparks heart, unspecified vessel or lesion type, unspecified whether angina presentTake 1 tablet (20 mg) by mouth at bedtime. 90 tablet tive digoxin (Lanoxin) 250 MCG tab;et Indications:Paroxysmal atrial fibrillation (CMS/HCC)Take 1 tablet (250 mcg) by mouth once daily as directed. 90 tablet ctive dexAMETHasone (Decadron) 4 mg tablet Take 4 mg by mouth in the morning.06/30/2024tive famotidine (Pepcid) 40 mg/5 mL (8 mg/mL) suspension Take 20 mg by mouth twice a day.Active loratadine (Claritin Reditabs) 10 mg disintegrating tablet Take 10 mg by mouth in the morning.Active ondansetron (Zofran) 8 mg tablet Take 8 mg by mouth every 8 (eight) hours if needed.06/30/2024tive ibuprofen 200 mg tablet Take 200 mg by mouth every 6 (six) hours if needed.Active amiodarone (Pacerone) 200 mg tablet Indications:Paroxysmal atrial fibrillation (CMS/HCC)Take 1 tablet by mouth once a day 90 tablet 5Active Active Problems ProblemNoted DateDiagnosed DateHistory of cwkcoufvqmu55/10/2025enign essential kowvaqeqxofk01/25/0047Jsdrrysmymtw05/25/2024izziness and llakznwtz82/25/2024 Drug-induced aksrzqwz83/25/2024Long term (current) use of anticoagulants 02/22/2024Neuropathy of both feet02/22/20240527Yewfpynaj31/25/2024Tachycardia 02/22/2024Tubular adenoma of colon02/22/2024bnormal WBC count10/07/2023 Fsqumjummkb71/06/3043Pqcvaizb68/06/2024Enteritis due to Ifrcvukli96/06/2024 Nbnwspvdeqg63/06/7407Hpilyugwwutznq82/06/5720Chgiffrlzujf24/06/2024Hodgkin hkdoycad88/05/2024aroxysmal atrial vkqqayeufazi75/18/2024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07/22/2023Multifocal pneumonia 07/01/2023Mass of lung06/25/2023Factor V Leiden adislhfv01/15/2022 Assessment & Plan (02/05/2022 10:10 AM EST): On Eliquis anticoagulation History of coronary artery bypass rwqhtph0307/12/2021 Assessment & Plan (08/20/2022 12:51 PM EDT): stable Benign hypertensive cardiomyopathy with heart zzgyyjr6407/12/2021 Assessment & Plan (06/10/2023 2:26 PM EDT): Currently b/p is stable 100/61, med adjustments for c/o hypotension- and new med list provided to pt- he voiced understanding Assessment & Plan (08/20/2022 1:12 PM EDT): HTN well controlled and asymptomatic labile b/p today Continue coreg and entresto Implantable cardioverter-defibrillator (ICD) in situ07/12/2021 Assessment & Plan (06/10/2023 2:27 PM EDT): Device interrogation q 6 months Denied any shock or hospitalization recently Assessment & Plan (08/20/2022 12:54 PM EDT): Device check 02/2022- noted VT episode with ATP RTC q 6 months for device interrogation Assessment & Plan (02/05/2022 10:10 AM EST): No defibrillations voiced per patient Return every 6 months for device interrogation Nonsustained ventricular iytqkipqlok21/15/2022 Assessment & Plan (06/10/2023 2:23 PM EDT): D/W pt importance of beta azul to prevent reoccurance of VT and he voiced understanding Resume coreg 3.125mg bid Assessment & Plan (08/20/2022 1:23 PM EDT): Continue coreg- was decreased r/t symptomatic hypotension. No DFT since last visit ICD with device check q 6months Assessment & Plan (02/05/2022 10:09 AM EST): Continue beta-azul No palpitations or concerns today Chronic systolic heart rjdzllq7207/12/2021 Assessment & Plan (06/10/2023 2:27 PM EDT): [facility] II- currently euvolemic without exacerbation Repeat [...] fluid restriction 1.5-2L/day, renal function and electrolytes- Assessment & Plan (08/20/2022 1:23 PM EDT): [facility] II Continue GDMT- ASA, lipitor, bumex, entresto and coreg. Diuretic therapy- bumex 2 mg bid Monitor daily weights, I&O, fluid restriction 1.5-2L/day, Assessment & Plan (02/05/2022 10:36 AM EST): As above with cardiomyopathy Continue goal-directed medical therapy with aspirin, Lipitor, Coreg, Bumex, Entresto Currently euvolemic without any limiting symptoms or concerns at this time Hypertensive vndcpllo40/15/2022Obesity, Class II, BMI 35-39.910/8609Zyabinkzynymnh89/18/2017 Assessment & Plan (02/05/2022 10:09 AM EST): [place]at heart class II Currently euvolemic without exacerbation Continue goal-directed medical therapy Patient admits low-sodium diet, fluid restriction and monitor his weight daily states has been verystable some fluctuation here and there between 3 pounds Coronary dlukwnobzhybnez23/18/2017 Assessment & Plan (06/10/2023 2:23 PM EDT): Coronary artery disease is Stable Continue GDMT- ASA, lipitor, coreg continue risk factor modifications- heart healthy diet, regular exercise as tolerated and continue all medications. Assessment & Plan (08/20/2022 1:23 PM EDT): Coronary artery disease is stable Continue GDMT- ASA, lipitor, coreg continue risk factor modifications- heart healthy diet, regular exercise as tolerated and continue all medications. . Assessment & Plan (02/05/2022 10:09 AM EST): Continue goal-directed medical therapy Risk factor modifications including heart healthy diet, regular exercise as tolerated and continue all medications No concerning symptoms today Encounters DateTypeDepartmentCare YlssUhtgkqftyoo54/05/2025 11:15 AM ESTOffice Visit [facility] [place] [address] [place] [address] Francisco Tena MD Shortness of breath (Primary Dx); Paroxysmal atrial fibrillation (CMS/HCC); Coronary artery disease involving reno-sparks coronary artery of reno-sparks heart without angina pectoris; Heart failure with improved ejection fraction (HFimpEF) (CMS/HCC); History of coronary artery bypass surgery; Factor V Leiden; Implantable cardioverter-defibrillator (ICD) in situ01/05/2025 7:30 AM EDT Ancillary Procedure [facility] [address] [place] [phone] Pre-operative cardiovascular examination, ICD in place01/05/2025Orders Only [facility] [address] [place] [phone] Nancy Solomon MD 01/05/2025Orders Only [facility] [address] [place] [phone] Peter Emery MD 12/30/2024Refill [facility] [address] [place] [phone] Evelin Raymundo MA Paroxysmal atrial fibrillation (CMS/HCC)12/21/2024 7:30 AM EDTAncillary Procedure [facility] [address] [place] [address] Pre-operative cardiovascular examination, ICD in place12/20/2024 1:30 PM EDT Ancillary Procedure [facility] [address] [place] [phone] Encounter for implantable defibrillator reprogramming or checkfrom Last 3 Months Family History Medical HistoryRelationNameCommentsCoronary artery diseaseBrotherCoronary artery diseaseFatherRelationNameStatusCommentsBrotherFatherDeceasedMotherDeceased Social History Tobacco UseTypesPacks/DayYears UsedDateSmoking Tobacco: NeverSmokeless Tobacco: Never Tobacco Cessation:Counseling Given: Not Answered Alcohol UseStandard Drinks/WeekCommentsYes0 (1 standard drink = 0.6 oz pure alcohol)moderateUT Safety & EnvironmentAnswerDate RecordedFear of Current or Ex-PartnerNot on file05/21/2023Emotionally AbusedNot on file05/21/2023hysically AbusedNot on file05/21/2023Sexually AbusedNot on file05/21/2023hysically or Sexually AbusedNot on file05/21/2023Sex and Gender InformationValueDate Recorded Sex Assigned at AaxroBneu20/28/2025 2:43 PM EDTLegal IurCilc7609/25/2021 11:59 PM EDTGender SxrwpwnrUsph86/28/2025 2:43 PM EDTSexual OrientationHeterosexual or Cjyllxgt21/28/2025 2:43 PM EDT Last Filed Vital Signs Vital SignReadingTime TakenCommentsBlood Lxmxopph056/8512 11:20 AM EST Imyge8753 11:20 AM ESTTemperature--Respiratory Mjns9553 9:48 AM EDTOxygen Bxgihdcmdm33%03/03/2025 11:20 AM ESTInhaled Oxygen Concentration-- Lhpdyk259 kg (234 lb)03/03/2025 11:20 AM LKXBjcfxh533.4 cm (6' 1 )03/03/2025 11:20 AM ESTBody Mass Index30.8703/03/2025 11:20 AM EST Plan of Treatment DateTypeDepartmentCare Team (Latest Contact Info)Mgsgoffjujv61/31/2025 11:45 AM ESTOffice Visit [facility] [address] [place] [address] Francisco Tena MD [address] [facility] [place] [address] Health MaintenanceDue DateLast DoneCommentsCT Doahoejdwjbw01/04/1958Colonoscopy 1957Colorectal Cancer Askxgaoii53/04/1958FIT-DNA1957FIT1957 FOBT1957Medicare Annual Wellness (AWV)1955 9516Nrvmtefrzcamg11/04/1958HIB Vaccines (1 of 1 - Risk 1-dose series)04/02/1959Meningococcal Vaccine (1 - Risk 2-dose series)01/01/1960Meningococcal B Vaccine (1 of 4 - Increased Risk) 01/01/1968Depression Rmdbknunr03/04/1970Adult Bdakwdi5301/01/1980Fall Risk Ssayocghp67/04/2023OVID-19 Vaccine ( season)51, 01/13/2023, 01/24/2022, Additional history existsZoster VaccinesCompleted 03/22/2021, 1Pneumococcal Vaccine: 50+ IdzvuMscggilcm79/17/2023 Influenza RmljlxfGdqrsdxkk63/24/2025, 01/05/2024, 01/02/2023, Additional history existsHPV VaccinesAged OutNo longer eligible based on patient's age to complete this topicIPV VaccinesAged OutNo longer eligible based on patient's age to complete this topicRotavirus VaccinesAged OutNo longer eligible based on patient's age to complete this topic Procedures Procedure NamePriorityDate/TimeAssociated DiagnosisCommentsCARDIAC DEVICE CHECK CHECK - JPSIGRPozdlnz64/14/2025 12:57 PM EDT Pre-operative cardiovascular examination, ICD in place CARDIAC DEVICE CHECK CHECK - AQQHGHPrecbpq39/14/2025 12:55 PM EDT Pre-operative cardiovascular examination, ICD in place CARDIAC DEVICE CHECK - REMOTE ALERT - DQFZnhjief58/09/2025 12:00 AM EDTCARDIAC DEVICE CHECK - REMOTE ALERT - MDMBmehhba73/09/2025 12:00 AM EDTCARDIAC DEVICE CHECK - IN CLINIC - ICD SINGLE CHAMBER W/ WHHTLfiezrk39/24/2025 12:09 PM EDT Encounter for implantable defibrillator reprogramming or check from Last 3 Months Results * CARDIAC DEVICE CHECK - REMOTE - ICD (01/10/2025 12:57 PM EDT) Only the most recent of2 resultswithin the time period is included. Specimen (Source)Anatomical Location / LateralityCollection Method / Volume Collection TimeReceived Time Narrative Authorizing ProviderResult TypeResult StatusBlair Almanza [facility] [place]PL[place]ABLE CARDIAC DEVICE PROCEDURESFinal ResultPerforming OrganizationAddressCity/State/ZIP Code Phone Number CPACS * Cardiac device check - Remote alert ICD (01/05/2025 12:00 AM EDT) Only the most recent of2 resultswithin the time period is included. Anatomical RegionLateralityModalityOtherSpecimen (Source)Anatomical Location / LateralityCollection Method / VolumeCollection TimeReceived Time01/05/2025 Narrative Authorizing ProviderResult TypeResult StatusNancy Solomon [facility] [place] IMPLANTABLE CARDIAC DEVICE PROCEDURESFinal Result * CARDIAC DEVICE CHECK - IN CLINIC - ICD SINGLE CHAMBER W/ PROG (12/21/2024 12:09 PM EDT)Anatomical RegionLateralityModalityOtherSpecimen (Source) Anatomical Location / LateralityCollection Method / VolumeCollection Time Received Time Narrative 01/03/2025 11:30 AM EDT By using the attestations below, the signing clinician agrees that I have read and verify that the documentation has been personally reviewed by me and ensure that the documentation accurately reflects the encounter. Routine EP device follow up as per schedule. Please see attached note Authorizing ProviderResult TypeResult StatusPajason Emery MDCV IMPLANTABLE CARDIAC DEVICE PROCEDURESFinal Result from Last 3 Months Insurance * Guarantor: Raul Haywood DAccount TypeRelation to PatientDate of BirthPhone Billing AddressPersonal/RocnspQlrf20[birth year][address] [address] Care Teams Team MemberRelationshipSpecialtyStart DateEnd Date Emilia Avery FNP-C [address] [place] [address] PCP - GeneralNurse Practitioner10/25/24
--- OUTSIDE RECORDS SUMMARY | 2025-03-03 12:22 | XMS_ITS | Clinical Summary ---
Author Organization [facility] Address [address] [place] [id number] Care Team Providers Care It Security Architect Name Role Phone Francisco Tena MD Unavailable [phone] Pari Velazquez MD Unavailable [phone] Antoine Coulter MD Primary Care Provider [phone] Allergies No known active allergies Medications MedicationSigDispense QuantityRefillsLast FilledStart DateEnd DateStatus aspirin, enteric coated (ECOTRIN LOW STRENGTH) 81 mg EC tablet Take 1 tablet by mouth once daily. 90 tablet Active sacubitril-valsartan (ENTRESTO) 24-26 mg tablet Take 1 tablet by mouth twice daily. 180 tablet Active ELIQUIS 5 mg tab(s) TAKE 1 TABLET BY MOUTH TWICE DAILY 180 tablet Active carvedilol (COREG) 25 mg tablet TAKE 1 TABLET BY MOUTH TWICE DAILY 180 tablet Active potassium chloride ER (K-DUR, KLOR-CON) 20 mEq tablet TAKE 1 TABLET BY MOUTH ONCE DAILY 90 tablet Active atorvastatin (LIPITOR) 20 mg tablet TAKE 1 TABLET BY MOUTH ONCE DAILY 90 tablet Active bumetanide (BUMEX) 2 mg tablet TAKE 1 TABLET BY MOUTH TWICE DAILY 180 tablet Active Active Problems ProblemNoted DateDiagnosed DateFactor V Vpjewx6512/28/2018Obesity, Class II, BMI 35-39.91 Family History Medical HistoryRelationCommentsSCDBrother 1age 56CancerBrother 2died age 60heart attackFatherdied age 65CancerMotherdied age 65RelationStatusCommentsBrother 1 Brother 2FatherMother Social History Tobacco UseTypesPacks/DayYears UsedDateSmoking Tobacco: NeverSmokeless Tobacco: FormerChewQuit: 10/2016Alcohol UseStandard Drinks/WeekCommentsNo0 (1 standard drink = 0.6 oz pure alcohol)none since november 2016Area Deprivation Index AnswerDate RecordedNational Score (1-100), lower number is lower riskNot on file 03/06/2020State Score (1-10), lower number is lower riskNot on file03/06/2020 Data from: https://www.neighborhoodatlas.[facility].edu/. Last address used for calculationNot on file03/06/2020Sex and Gender InformationValueDate Recorded Sex Assigned at BirthNot on fileLegal IeuAbhw6608/21/2017 3:00 PM EDTGender IdentityNot on fileSexual OrientationNot on file Last Filed Vital Signs Vital SignReadingTime TakenCommentsBlood Hfzbgwvv666/8109/16/2019 10:36 AM EDT Jcwzu873909/16/2019 10:36 AM EDTTemperature--Respiratory Rate--Oxygen Saturation 96%09/16/2019 10:36 AM EDTInhaled Oxygen Concentration--Hbodtz064.5 kg (283 lb 4.8 oz)09/16/2019 10:36 AM JFNFbvfti572.4 cm (6' 1 )09/16/2019 10:36 AM EDTBody Mass Index37.3806 10:36 AM EDT Plan of Treatment Health MaintenanceDue DateLast DoneCommentsAnxiety Jzfbqslhg69/04/1976Depression Kvdmzrkyt52/04/1976Hepatitis C Wyfofccbq94/04/1976DTaP,Tdap,Td Vaccine (1 - Tdap)1976Lipid Gzfhlkusr33/04/1993CT Uobznoulnqyd53/04/2003Cologuard (FIT-DNA)12/31/20026581Ibugrzdhzeq90/04/2003Colorectal Cancer Xmfculcrb05/04/2003 Fecal Occult Blood2002Prostate Cancer Screening Rysxvegfjr23/04/2003 Plfcxemmlckjx11/04/2003Pneumococcal Vaccine: 50+ (1 of 1 - PCV)01/01/2008 Shingrix Vaccine (1 of 2)01/01/2008Diabetes Vidfnjyfp85, 08/31/2017Advance Directive Uxjhiercsc38/01/2025ovid-19 Vaccine (2024- season)2024Influenza Vaccine (#1)RSV Vaccine (1 - 1- dose 75+ series)2032 Procedures Procedure NamePriorityDate/TimeAssociated DiagnosisCommentsCOMPREHENSIVE METABOLIC XEYYHQzofqge39/04/2018 1:16 PM EDT Coronary artery disease involving kiowa tribe coronary artery of kiowa tribe heart without angina pectoris Chronic combined systolic and diastolic heart failure (HCC) Ischemic cardiomyopathy from Last 3 Months or Most Recently Relevant to Health Maintenance Results * (ABNORMAL) COMP METABOLIC PANEL (08/31/2017 1:16 PM EDT)ComponentValueRef RangeTest MethodAnalysis TimePerformed AtPathologist SignatureProtein, Total 7.86.3 - 8.0 g/dL08/31/2017 6:21 PM EDTCPREMIER [facility] LABORATORYAlbumin 4.43.9 - 4.9 g/dL08/31/2017 6:21 PM [facility] LABORATORYCalcium 9.78.5 - 10.2 mg/dL08/31/2017 6:21 PM [facility] Bilirubin, Total0.50.2 - 1.3 mg/dL08/31/2017 6:21 PM [facility] LABORATORYAlkaline Nidtcyjkntv9004 - 108 U/L08/31/2017 6:21 PM [facility] AMEYZDASFVLXL4033 - 40 U/L08/31/2017 6:45 PM [facility] OPZEMSYDRHLbhetia2088 - 99 mg/dL08/31/2017 6:21 PM [facility] LABORATORYComment: The [place] Diabetes Association (ADA) provides guidance for cutoff values for fasting glucose and random glucose. The ADA defines fasting as no caloric intake for at least 8 hours. Fasting plasma glucose results between 100 to 125 mg/dL indicate increased risk for diabetes (prediabetes). Fasting plasma glucose results greater than or equal to 126 mg/dL meet the criteria for diagnosis of diabetes. In the absence of unequivocal hyperglycemia, results should be confirmed by repeat testing. In a patient with classic symptoms of hyperglycemia or hyperglycemic crisis, random plasma glucose results greater than or equal to 200 mg/dL meet the criteria for diagnosis of diabetes. Reference: Standards of Medical Care in Diabetes 2016, [place] Diabetes Association. Diabetes Care. 2016.39(Suppl 1). OAV814 - 24 mg/dL08/31/2017 6:21 PM [facility] Creatinine1.29(H)0.73 - 1.22 mg/dL08/31/2017 6:21 PM [facility] TKEMOVZCIBThpnff546114 - 144 mmol/L08/31/2017 6:21 PM [facility] LABORATORYPotassium4.83.7 - 5.1 mmol/L08/31/2017 6:21 PM [facility] PJNWPHJSJIKftujqyr0810 - 105 mmol/L08/31/2017 6:21 PM [facility] PAAUDTJBDBLL268(H)22 - 30 mmol/L08/31/2017 6:21 PM [facility] LABORATORYAnion Ubr931 - 18 mmol/L08/31/2017 6:21 PM [facility] ICZVPQAPTALQK5176 - 54 U/L08/31/2017 6:45 PM [facility] eGFR->6006 6:21 PM [facility] eGFR-All Other Races57.08/31/2017 6:21 PM [facility] Comment: eGFR (Estimated GFR) Units of measure: mL/min/1.73 meters squared eGFR is derived from the reexpressed MDRD Study equation using the following parameters: serum creatinine, age, gender and race. The creatinine assay has been calibrated to be traceable to IDMS. An eGFR <60 mL/min/1.73m2 for >3 months is consistent with chronic kidney disease. Refer to KDOQI guidelines for clinical interpretation. In patients with unstable renal function, e.g. those with acute kidney injury, the eGFR may not accurately reflect actual GFR. Specimen (Source)Anatomical Location / LateralityCollection Method / Volume Collection TimeReceived TimeBlood specimen (specimen)BLOOD SPECIMEN / Unknown 08/31/2017 1:16 PM EDT08/31/2017 1:18 PM EDT Narrative Authorizing ProviderResult TypeResult StatusCorinmayuri Velazquez MDLABORATORY Final ResultPerforming OrganizationAddressCity/State/ZIP CodePhone Number [facility] [address] [place] [address] from Last 3 Months or Most Recently Relevant to Health Maintenance Care Teams Team MemberRelationshipSpecialtyStart [place] [address] [place] [address] PCP - GeneralFamily Medicine09/16/19 [place] [address] [facility] [address] [place] [address] ReferringCardiology08/21/17 [place] [address] [facility] [address] [place] [phone] Primary Staff PhysicianCardiology06/15/18
--- OUTSIDE RECORDS SUMMARY | 2025-03-03 12:28 | XMS_ITS | CCD ---
Author Organization [facility] Care Team Providers Care Geographic Information Scientist Name Role Phone BLAKE LUCAS AM Unavailable Unavailable ESPERANZA EATON Unavailable Unavailable SELF, REFERRED Unavailable Unavailable TORSTEN YEPEZ Unavailable Unavailable [place] Unavailable Unavailable BLAKE LUCAS AM Unavailable Unavailable [place] Unavailable Unavailable UNKNOWN, PROVIDER Unavailable Unavailable [place] Unavailable Unavailable MICHEL BURKETT Unavailable Unavailable [place] Unavailable Unavailable BRISEIDA HALL Unavailable Unavailable [place] Unavailable Unavailable TORSTEN YEPEZ Unavailable Unavailable SELF, REFERRED Unavailable Unavailable SELF, REFERRED Unavailable Unavailable BLANCO ESCOBAR Unavailable Unavailable BLANCO ESCOBAR Unavailable Unavailable SELF, REFERRED Unavailable Unavailable PHYSICIAN, DEFAULT Unavailable Unavailable PHYSICIAN, DEFAULT Unavailable Unavailable UNKNOWN, PROVIDER Unavailable Unavailable CARLA CERVANTES Unavailable Unavailable CARLA CERVANTES Unavailable Unavailable PAVDARIN MOLINA Unavailable Unavailable PHYSICIAN, DEFAULT Unavailable Unavailable PHYSICIAN, DEFAULT Unavailable Unavailable DARIN PEREA Unavailable Unavailable Mag Frank Attending Provider Antoine Hobbs Primary Care Provider [phone] STANFORD CANTU Attending Unavailable STANFORD CANTU Consulting Unavailable STANFORD CANTU Admitting Unavailable REQUEST, DR NONE LISTED Primary Care Unavaila Antoine Wilson Primary Care Physician ANTOINE HOBBS Referring Unavailable ANTOINE HOBBS Primary Care Unavailable MD Antoine Hobbs Attending Unavailable MD Antoine Hobbs Attending Unavailable MD Antoine Hobbs Attending Unavailable MD Antoine Hobbs Attending Unavailable MD Antoine Hobbs Attending Unavailable MD Antoine Hobbs Admitting Unavailable MD Antoine Hobbs Admitting Unavailable MD Antoine Hobbs Attending Unavailable MD Antoine Hobbs Attending Unavailable MD Antoine Hobbs Attending Unavailable Antoine Hobbs MD Primary Care Provider [phone] Antoine Hobbs MD Primary Care Provider Freedom Maciel Attending Unavailable Antoine Hobbs MD Primary Care Provider Wallace Prado MD Primary Care Provider No Pcp, No Pcp Primary Care Provider UnavailWallace Montgomery MD Primary Care Provider TIMQUIN LUNA H Attending Unavailable TIMMIQUIN Manuel H Attending Unavailable TIMQUIN LUNA H Attending Unavailable MONSE BERGT Admitting Unavailable BERG AVIJIT Attending Unavailable PHYSICIAN, UNKNOWN Referring Unavailable ROSS, ANTOINE E Primary Care Unavailable TT ONLY, [facility] Consulting Unavailable ANGIE RUIZ Consulting Unavailable BRADEN REIS Consulting Unavailable ARABELLA LORA Consulting Unavailable AIMEE ANDERSON Consulting Unavailable VENUS MENDEZ Attending Unavaila ble ROSS, ANTOINE E Primary Care Unavailable FRANKY RASMUSSEN A Attending Unavailable HENOK RASMUSSENI A Referring Unavailable ROSS, ANTOINE E Primary Care Unavailable AL-TKRIT, WOO M Referring Unavailable ROSS, ANTOINE E Primary Care Unavailable FLETCHER HUSTON Referring Unavailable ROSS, ANTOINE E Primary Care Unavailable HEENA CONDON Attending Unavailable HEENA CONDON Referring Unavailable ROSS, ANTOINE E Primary Care Unavailable AIMEE MADRID Referring Unavailable ROSS, ANTOINE E Primary Care Unavailable AKASH AC Referring Unavailable ROSS, ANTOINE E Primary Care Unavailable CHICA CONTRERAS Attending Unavailable CHICA CONTRERAS Referring Unavailable ROSS, ANTOINE E Primary Care Unavailable FRANCISCO NEVAREZ Referring Unavailable ROSS, ANTOINE E Primary Care Unavailable TAJ HAILE Attending Unavailable TAJ HAILE Referring Unavailable ROSS, ANTOINE E Primary Care Unavailable MAYTE CENTENO Referring Unavailable GALA TROTTER Referring Unavailable ROSS, ANTOINE E Primary Care Unavailable LANDRY HARDEN Referring Unavailable ROSS, ANTOINE E Primary Care Unavailable BRANDON BANUELOS Attending Unavailable BRANDON BANUELOS Referring Unavailable ROSS, ANTOINE E Primary Care Unavailable HARRY BACON Referring Unavailable ROSS, ANTOINE E Primary Care Unavailable WALLACE PRADO N Attending Unavailable WALLACE PRADO N Referring Unavailable JOHAN, WALLACE N Primary Care Unavailable SHAHBAZ ASHBY Admitting Unavailable WALLACE PRADO Attending Unavailable WALLACE PRADO Referring Unavailable ROSS, ANTOINE E Primary Care Unavailable MADDY HINTON Admitting Unavailable Antoine Hobbs MD Primary Care Provider CARLOS BARTLETT Referring Unavailable DESLAURO Jeff Referring Unavailable TRI, CARLOS Referring Unavailable TRI, CARLOS Referring Unavailable TRI, CARLOS Referring Unavailable TRI, CARLOS Referring Unavailable MOFRANCISCO CARR Attending Unavailable TRI, CARLOS Referring Unavailable MOUKARBKING, FRANCISCO Attending Unavailable MOUKAFRANCISCO NAIK Attending Unavailable TRI, CARLOS Referring Unavailable TRI, CARLOS Referring Unavailable TRI, CARLOS Referring Unavailable DES, LAURO Referring Unavailable DES, LAURO Referring Unavailable Antoine Hobbs MD Primary Care Provider JOHAN, CENTENO N Referring Unavailable JOHAN, CENTENO N Primary Care Unavailable JOHAN, CENTENO N Referring Unavailable JOHAN, CENTENO N Primary Care Unavailable JOHAN, CENTENO N Referring Unavailable JOHAN, CENTENO N Primary Care Unavailable JOHAN, CENTENO N Referring Unavailable JOHAN, CENTENO N Primary Care Unavailable ROSS, ANTOINE E Primary Care Unavailable RAN LOMAS Attending Unavailable JOHAN, CENTENO N Referring Unavailable ROSS, ANTOINE E Primary Care Unavailable JOHAN, CENTENO N Attending Unavailable ROSS, ANTOINE E Referring Unavailable ROSS, ANTOINE E Primary Care Unavailable ROSS, ANTOINE E Referring Unavailable ROSS, ANTOINE E Primary Care Unavailable Arabella Guerrero Referring Unavailable ROSS, ANTOINE E Primary Care Unavailable JOHAN, CENTENO N Attending Unavailable JOHAN, CENTENO N Referring Unavailable ROSS, ANTOINE E Primary Care Unavailable JOHAN, CENTENO N Attending Unavailable ROSS, ANTOINE E Referring Unavailable ROSS, ANTOINE E Primary Care Unavailable JOHAN, CENTENO N Referring Unavailable ROSS, ANTOINE E Primary Care Unavailable JOHAN, CENTENO N Attending Unavailable ROSS, ANTOINE E Referring Unavailable ROSS, ANTOINE E Primary Care Unavailable ROSS, ANTOINE E Referring Unavailable ROSS, ANTOINE E Primary Care Unavailable ROSS, ANTOINE E Referring Unavailable ROSS, ANTOINE E Primary Care Unavailable JOHAN, CENTENO N Attending Unavailable ROSS, ANTOINE E Referring Unavailable ROSS, ANTOINE E Primary Care Unavailable ROSS, ANTOINE E Referring Unavailable ROSS, ANTOINE E Primary Care Unavailable ROSS, ANTOINE E Referring Unavailable ROSS, ANTOINE E Primary Care Unavailable JOHAN, CENTENO N Attending Unavailable ROSS, ANTOINE E Referring Unavailable ROSS, ANTOINE E Primary Care Unavailable ROSS, ANTOINE E Referring Unavailable ROSS, ANTOINE E Primary Care Unavailable ROSS, ANTOINE E Referring Unavailable ROSS, ANTOINE E Primary Care Unavailable ROSS, ANTOINE E Referring Unavailable ROSS, ANTOINE E Primary Care Unavailable ROSS, ANTOINE E Referring Unavailable ROSS, ANTOINE E Primary Care Unavailable ROSS, ANTOINE E Referring Unavailable ROSS, ANTOINE E Primary Care Unavailable ROSS, ANTOINE E Referring Unavailable ROSS, ANTOINE E Primary Care Unavailable JOHAN, CENTENO N Attending Unavailable ROSS, ANTOINE E Referring Unavailable ROSS, ANTOINE E Primary Care Unavailable ROSS, ANTOINE E Referring Unavailable ROSS, ANTOINE E Primary Care Unavailable ROSS, ANTOINE E Referring Unavailable ROSS, ANTOINE E Primary Care Unavailable ROSS, ANTOINE E Referring Unavailable ROSS, ANTOINE E Primary Care Unavailable ROSS, ANTOINE E Referring Unavailable ROSS, ANTOINE E Primary Care Unavailable ROSS, ANTOINE E Referring Unavailable ROSS, ANTOINE E Primary Care Unavailable JOHAN, CENTENO N Referring Unavailable ROSS, ANTOINE E Primary Care Unavailable ROSS, ANTOINE E Referring Unavailable ROSS, ANTOINE E Primary Care Unavailable ROSS, ANTOINE E Referring Unavailable ROSS, ANTOINE E Primary Care Unavailable JOHAN, CENTENO N Attending Unavailable ROSS, ANTOINE E Referring Unavailable ROSS, ANTOINE E Primary Care Unavailable ROSS, ANTOINE E Referring Unavailable ROSS, ANTOINE E Primary Care Unavailable ROSS, ANTOINE E Referring Unavailable ROSS, ANTOINE E Primary Care Unavailable ROSS, ANTOINE E Referring Unavailable ROSS, ANTOINE E Primary Care Unavailable ROSS, ANTOINE E Referring Unavailable ROSS, ANTOINE E Primary Care Unavailable ROSS, ANTOINE E Referring Unavailable ROSS, ANTOINE E Primary Care Unavailable ROSS, ANTOINE E Referring Unavailable ROSS, ANTOINE E Primary Care Unavailable ROSS, ANTOINE E Referring Unavailable ROSS, ANTOINE E Primary Care Unavailable ROSS, ANTOINE E Referring Unavailable ROSS, ANTOINE E Primary Care Unavailable ROSS, ANTOINE E Referring Unavailable ROSS, ANTOINE E Primary Care Unavailable ROSS, ANTOINE E Referring Unavailable ROSS, ANTOINE E Primary Care Unavailable JOHAN, CENTENO N Attending Unavailable ROSS, ANTOINE E Referring Unavailable ROSS, ANTOINE E Primary Care Unavailable ROSS, ANTOINE E Referring Unavailable ROSS, ANTOINE E Primary Care Unavailable ROSS, ANTOINE E Referring Unavailable ROSS, ANTOINE E Primary Care Unavailable ROSS, ANTOINE E Referring Unavailable ROSS, ANTOINE E Primary Care Unavailable ROSS, ANTOINE E Referring Unavailable ROSS, ANTOINE E Primary Care Unavailable ROSS, ANTOINE E Referring Unavailable ROSS, ANTOINE E Primary Care Unavailable ROSS, ANTOINE E Referring Unavailable ROSS, ANTOINE E Primary Care Unavailable ROSS, ANTOINE E Referring Unavailable ROSS, ANTOINE E Primary Care Unavailable JOHAN, CENTENO N Attending Unavailable ROSS, ANTOINE E Referring Unavailable ROSS, ANTOINE E Primary Care Unavailable ANTOINE HOBBS Referring Unavailable ANTOINE HOBBS Primary Care Unavailable ANTOINE HOBBS Referring Unavailable ANTOINE HOBBS Primary Care Unavailable ANTOINE HOBBS Referring Unavailable ANTOINE HOBBS Primary Care Unavailable Allergies Allergy ClassificationReported Allergen(s)Allergy TypeDate of OnsetReaction(s) Facility (1 source)No Known Medication Allergies; 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: [No Known Medication Allergies]Propensity to adverse reactions (disorder)[facility] Medications Current Medications MedicationDrug Class(es)DatesSig (Normalized)Sig (Original)albuterol 0.833 mg/ml / ipratropium bromide 0.167 mg/ml inhalation solution (20 sources)Anticholinergic, beta2-Adrenergic AgonistStart: 44-27-4527rnfw 3 mL by inhalation every six hoursipratropium-albuteroL (DUONEB) 0.5 mg-3 mg(2.5 mg base)/3 mL nebulizer Indications: Mass of lung Inhale 3 mL by nebulization every 6 (six) hours while awake. 07/16/2023 Activeamiodarone hydrochloride 200 mg oral tablet (20 sources)AntiarrhythmicStart: 09-15-2023 End: 66-23-8214tird 1 tablet by mouth in the morningamiodarone (PACERONE) 200 mg tablet Take 1 tablet (200 mg total) by mouth in the morning. 10/19/2023 Active Start: 09-15-2023 End: 61-78-4691rwulrxlrtu (PACERONE) 200 mg tablet 2 tablets (400 mg total) in the morning and 2 tablets (400 mg total) before bedtime. 09/15/2023 12/28/2023 Activeamoxicillin 875 mg / clavulanate 125 mg oral tablet (2 sources)Penicillin-class AntibacterialStart: 04-27-2024 End: 88-05-4750xsqx 1 tablet by mouth in the morningamoxicillin-clavulanate (Augmentin) 875-125 MG tablet Indications: Chronic rhinitis Take 1 tablet (875 mg) by mouth in the morning and 1 tablet (875 mg) before bedtime. Do all this for 14 days. 28 tablet 04/27/2024 05/11/2024 Activeapixaban 5 mg oral tablet (20 sources)Factor Xa InhibitorStart: 82-08-9718nyoq 0.5 tablet by mouth in the morning, then take 0.5 tablet by mouth at bedtimeapixaban (ELIQUIS) 5 mg tablet Take 0.5 tablets (2.5 mg total) by mouth in the morning and 0.5 tablets (2.5 mg total) before bedtime. 01/20/2020 ActiveStart: 94-92-4106szxr 1 tablet by mouth in the morningapixaban (Eliquis) 5 MG tablet Take 5 mg by mouth in the morning and 5 mg in the evening. 10/13/2023 Activeatorvastatin 20 mg oral tablet (20 sources)HMG-CoA Reductase InhibitorStart: 14-70-2762yclw 1 tablet by mouth in the morningatorvastatin (LIPITOR) 20 mg tablet Take 1 tablet (20 mg total) by mouth in the morning. 01/20/2020ActiveB complex-vitamin C-folic acid (NEPHROCAP) 1 mg capsule (20 sources)take 1 capsule by mouth in the morningB complex-vitamin C-folic acid (NEPHROCAP) 1 mg capsule Take 1 capsule by mouth in the morning. Active bumetanide 2 mg oral tablet (20 sources)Loop DiureticStart: 08-89-1145vbkcpocdwz (BUMEX) 2 mg tablet HOLD until outpatient follow-up with Cardiology 07/16/2023 ActiveStart: 06-04-2023 take 1 tablet by mouth twice dailybumetanide 1 mg Tab 1 mg = 1 tab(s), Oral, BID, # 90 tab(s), Refills(s) 0, other reason (Rx) Start Date: 06/04/23 Status: OrderedStart: 01-20-2020 End: 13-74-7815hqqf 1 tablet by mouth twice dailybumetanide (BUMEX) 2 mg tablet Take 1 tablet (2 mg total) by mouth 2 (two) times a day. 01/20/2020 07/14/2023 Discontinuedcalcium carbonate 1500 mg oral tablet (20 sources)take 1 tablet by mouth once daily at breakfastcalcium carbonate (OS- SARAH BETH) 600 mg elemental (1,500 mg) tablet Take 1 tablet (600 mg total) by mouth daily with breakfast. Activeciprofloxacin 500 mg oral tablet (20 sources)Quinolone Antimicrobialtake 1 tablet by mouth in the morning, then take 1 tablet by mouth at bedtimeciprofloxacin HCl (CIPRO) 500 mg tablet Take 1 tablet (500 mg total) by mouth in the morning and 1 tablet (500 mg total) before bedtime. 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 40 tablet 2 06/30/2024 ActiveStart: 02-11-2024 End: 76-52-888284 mg, intravenous, Once, On Joanne 02/11/24 at 1045, For 1 dose, May alter blood glucose or insulin requirements. Look-alike/sound-alike medication - verify indication for use.Start: 01-28-2024 End: 66-80-468486 mg, intravenous, Once, On Thu01/28/24 at 1030, For 1 dose, May alter blood glucose or insulin requirements. Look-alike/sound-alike medication - verify indication for use.Start: 01-15-2024 End: 79-25-610182 mg, intravenous, Once, On Thu01/15/24 at 1115, For 1 dose, May alter blood glucose or insulin requirements. 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 40 tablet 07/24/2023 08/27/2023 Discontinueddigoxin 0.25 mg oral tablet (20 sources)Cardiac GlycosideStart: 10-13-2023 End: 20-93-2764bdyo 1 tablet by mouth once dailydigoxin (Lanoxin) 250 MCG tab;et Take 250 mcg by mouth Daily 10/13/2023 10/12/2024 ActiveDM/p- ephed/acetaminoph/doxylam (NYQUIL D ORAL) (20 sources)DM/p-ephed/acetaminoph/doxylam (NYQUIL D ORAL) Take by mouth as needed. Activedocusate sodium 100 mg oral capsule (20 sources)take 1 capsule by mouth in the morning, then take 1 capsule by mouth at bedtimedocusate sodium (COLACE) 100 mg capsule Take 1 capsule (100 mg total) by mouth in the morning and 1capsule (100 mg total) before bedtime. Active famotidine 8 mg/ml oral suspension (20 sources)Histamine-2 Receptor Antagonisttake 2.5 mL by mouth in the morning famotidine (PEPCID) 40 mg/5 mL (8 mg/mL) suspension Take 2.5 mL (20 mg total) by mouth in the morning and 2.5 mL (20 mg total) before bedtime. Activegabapentin 300 mg oral capsule (20 sources)Anti-epileptic AgentStart: 06-12-2024 End: 61-94-3906pffg 1 capsule by mouth three times dailygabapentin (NEURONTIN) 300 mg capsule Indications: Hodgkin lymphoma, unspecified Hodgkin lymphoma type, unspecified body region (CMS-HCC) TAKE 1 CAPSULE BY MOUTH THREE TIMES DAILY 90 capsule 1 12/15/2024 ActiveStart: 03-04-2024 End: 83-54-6704cruh 1 capsule by mouth three times dailygabapentin (NEURONTIN) 300 mg capsule Indications: Hodgkin lymphoma, unspecified Hodgkin lymphoma type, unspecified body region (CMS-HCC) Take 1 capsule (300 mg total) by mouth 3 (three) times a day.90 capsule 1 03/04/2024 06/10/2024 Discontinued (Reorder) ibuprofen 200 mg oral tablet (20 sources)Nonsteroidal Anti-inflammatory Drugtake 1 tablet by mouth every six hours as needed for painibuprofen (ADVIL,MOTRIN) 200 mg tablet Take 1 tablet (200 mg total) by mouth every 6 (six) hours asneeded for pain. Active levoFLOXacin 750 mg oral tablet (2 sources)Quinolone AntimicrobialStart: 08-23-2024 End: 72-96-4608idud 1 tablet by mouth in the morninglevoFLOXacin (LEVAQUIN) 750 mg tablet Take 1 tablet (750 mg total) by mouth in the morning for 5 days. 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 30 g 09/10/2023 Activeloratadine 10 mg disintegrating oral tablet (20 sources)loratadine (CLARITIN REDITABS) 10 mg disintegrating tablet Dissolve 1 tablet (10 mg total) on tongue in the morning. Activemagnesium oxide 400 mg oral tablet (20 sources)Start: 31-91-3876shwd 1 tablet by mouth in the morningmagnesium oxide (MAGOX) 400 mg tablet Take 1 tablet (400 mg total) by mouth in the morning. 30 tablet 6 10/12/2023 Cjcipe07 hr metoprolol succinate 25 mg extended release oral tablet (20 sources)beta-Adrenergic BlockerStart: 92-88-5166tibg 0.5 tablet by mouth every twenty-four hours in the morningmetoprolol succinate XL (TOPROL XL) 25 mg 24 hr tablet Take 0.5 tablets (12.5 mg total) by mouth inthe morning. 10/12/2023 ActiveStart: 10-12-2023 End: 89-92-0978qovs 1 tablet by mouth once dailymetoprolol succinate XL (Toprol- XL) 25 MG 24 hr tablet Take 12.5 mg by mouth Daily 10/12/2023 01/04/2025 Active Start: 13-88-2122wpmh 1 tablet by mouth every twenty-four hours in the morning metoprolol succinate XL (TOPROL XL) 25 mg 24 hr tablet Take 1 tablet (25 mg total) by mouth in the morning. 07/16/2023 SuspendedmetroNIDAZOLE 500 mg oral tablet (7 sources)Nitroimidazole AntimicrobialStart: 08-12-2023 End: 65-93-7262gynk 1 tablet by mouth in the morning, then take 1 tablet by mouth at bedtimemetroNIDAZOLE (FLAGYL) 500 mg tablet Take 1 tablet (500 mg total) by mouth in the morning and 1 tablet (500 mg total) before bedtime. Do all this for 7 days. 14 tablet 08/12/2023 08/19/2023 Activemirtazapine 15 mg oral tablet (20 sources)take 1 tablet by mouth once dailymirtazapine (REMERON) 15 mg tablet Take 1 tablet (15 mg total) by mouth nightly. 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 60 tablet 2 09/24/2023 06/02/2024 Discontinued microencapsulated potassium chloride 20 meq extended release oral tablet (20 sources)Start: 27-55-9257hmys 1 tablet by mouth once in the morningpotassium chloride (KLOR-CON M 20) 20 MEQ CR tablet Take 1 tablet (20 mEq total) by mouth in the morning and 1 tablet (20 mEq total) before bedtime. Plan to stop the potassium supplementation once diarrhea has resolved.. 60 tablet 6 10/12/2023 ActiveStart: 55-54-6176bivl 1 tablet by mouth in the morningpotassium chloride CR (Klor-Con M20) 20 MEQ ER tablet Take 20 mEq by mouth in the morning and 20 mEq in the evening. 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 60 tablet 2 09/24/2023 Suspended sildenafil 20 mg oral tablet (1 source)Phosphodiesterase 5 InhibitorStart: 35-33-9013dqhw 1 tablet by mouth once daily as neededsildenafil 20 mg oral tablet 20 mg = 1 tab(s), Oral, Daily, PRN erectile dysfunction, Refills(s) 0 Start Date: 10/24/19 Status: Ordered Completed/Discontinued Medications MedicationDrug Class(es)DatesSig (Normalized)Sig (Original)acetaminophen 500 mg oral tablet (20 sources)Start: 12-08-2024 End: 63-18-5248xpvu 1000 mg by mouth once1,000 mg, oral, Once, On Joanne 12/08/24 at 1200, For 1 doseStart: 11-24-2024 End: 70-93-8178sbct 1000 mg by mouth once1,000 mg, oral, Once, On Joanne 11/24/24 at 0845, For 1 doseStart: 11-10-2024 End: 23-97-8532srtp 1000 mg by mouth once1,000 mg, oral, Once, On Joanne 11/10/24 at 1000, For 1 doseStart: 10-27-2024 End: 12-90-0638kcvi 1000 mg by mouth once1,000 mg, oral, Once, On Thu10/27/24 at 0930, For 1 doseStart: 10-13-2024 End: 85-19-7521pybp 1000 mg by mouth once1,000 mg, oral, Once, On Thu10/13/24 at 0900, For 1 doseStart: 09-29-2024 End: 35-35-8745rgej 1000 mg by mouth once1,000 mg, oral, Once, On Joanne 09/29/24 at 0815, For 1 doseStart: 09-15-2024 End: 68-97-2982ozah 1000 mg by mouth once1,000 mg, oral, Once, On Joanne 09/15/24 at 1130, For 1 doseStart: 09-01-2024 End: 70-16-4955pjeq 1000 mg by mouth once1,000 mg, oral, Once, On Joanne 09/01/24 at 0915, For 1 doseStart: 08-04-2024 End: 95-97-3262apbd 1000 mg by mouth once1,000 mg, oral, Once, On Joanne 08/04/24 at 1015, For 1 doseStart: 07-21-2024 End: 31-30-8782vguy 1000 mg by mouth once1,000 mg, oral, Once, On Joanne 07/21/24 at 1030, For 1 doseStart: 02-11-2024 End: 07-64-2200vhvo 1000 mg by mouth once1,000 mg, oral, Once, On Thu02/11/24 at 1045, For 1 doseStart: 01-28-2024 End: 91-87-8855wcey 1000 mg by mouth once1,000 mg, oral, Once, On Thu01/28/24 at 1030, For 1 doseStart: 01-15-2024 End: 22-09-7573ygtu 1000 mg by mouth once1,000 mg, oral, Once, On Thu01/15/24 at 1115, For 1 doseStart: 2023 End: 96-17-3455mtpq 1000 mg by mouth once1,000 mg, oral, Once, On Joanne 12/31/23 at 1030, For 1 doseStart: 12-17-2023 End: 76-06-9638urwq 1000 mg by mouth once1,000 mg, oral, Once, On Joanne 12/17/23 at 1030, For 1 doseStart: 12-03-2023 End: 59-17-5691ojdg 1000 mg by mouth once1,000 mg, oral, Once, On Joanne 12/03/23 at 1045, For 1 doseStart: 11-19-2023 End: 07-80-3599dncr 1000 mg by mouth once1,000 mg, oral, Once, On Joanne 11/19/23 at 1045, For 1 doseStart: 11-05-2023 End: 03-27-3431hfwc 1000 mg by mouth once1,000 mg, oral, Once, On Joanne 11/05/23 at 1015, For 1 doseStart: 10-22-2023 End: 23-20-3842diwo 1000 mg by mouth once1,000 mg, oral, Once, On Joanne 10/22/23 at 1030, For 1 doseStart: 58-91-1692nnks 2 tablets by mouth in the morning, then take 2 tablets by mouth at bedtimeacetaminophen (TYLENOL EXTRA STRENGTH) 500 mg tablet Take 2 tablets (1,000 mg total) by mouth in the morning and 2 tablets (1,000 mg total) before bedtime. 10/19/2023 ActiveStart: 09-24-2023 End: 82-67-6470aucn 1000 mg by mouth once1,000 mg, oral, Once, On Joanne 09/24/23 at 1015, For 1 doseStart: 09-10-2023 End: 46-15-5652ltei 1000 mg by mouth once1,000 mg, oral, Once, On Joanne 09/10/23 at 1045, For 1 doseStart: 08-27-2023 End: 53-85-5595lgzi 1000 mg by mouth once1,000 mg, oral, Once, On Joanne 08/27/23 at 1230, For 1 doseStart: 08-13-2023 End: 02-23-6715telm 1000 mg by mouth once1,000 mg, oral, Once, On Joanne 08/13/23 at 1045, For 1 doseStart: 07-31-2023 End: 21-85-7954lmde 1000 mg by mouth once1,000 mg, oral, Once, On Thu07/31/23 at 1115, For 1 dosealteplase (CATHFLO) injection 2 mg (1 source)Start: 08-16-2024 End: 69-18-5771bxdx 1 dose intravenously once as needed2 mg, intravenous, As needed, to declot central IV line as needed., Starting on Thu08/16/24 at 1357, For 2 doses, Patients LESS than 30 k% of the internal lumen volume of the catheter, not to exceed 2 mg/2 mL; retain in catheter for 0.5 to 2 hours; may instill a second dose if catheter remains occluded Patients AT OR ABOVE 30 k mg/2 mL; retain in catheter for 0.5 to 2 hours; may instilla second dose if catheter remains occluded Look-alike/sound-alike medication - verify indication for use.aspirin 81 mg delayed release oral tablet (20 sources)Platelet Aggregation Inhibitor, Nonsteroidal Anti-inflammatory Drug Start: 07-11-2019 End: 30-38-1778indn 1 tablet by mouth in the morningaspirin 81 mg Take 1 tablet (81 mg total) by mouth in the morning. 07/11/2019 08/27/2023 Discontinued brentuximab vedotin (ADCETRIS) 120 mg in sodium chloride 0.9 % 100 mL chemo IVPB (13 sources)Start: 02-11-2024 End: 59-13-8336663 mg, intravenous, at 248 mL/hr, Administer over 30 Minutes, Once, On Joanne 02/11/24 at 1215, For 1dose, Administer brentuximab vedotin within approximately 1 hour after completion of AVD (DOXOrubici n/vinBLAStine/dacarbazine).Start: 01-28-2024 End: 78-88-2039239 mg, intravenous, at 248 mL/hr, Administer over 30 Minutes, Once, On Joanne 01/28/24 at 1200, For 1dose, Administer brentuximab vedotin within approximately 1 hour after completion of AVD (DOXOrubici n/vinBLAStine/dacarbazine).Start: 01-15-2024 End: 68-60-0063930 mg, intravenous, at 248 mL/hr, Administer over 30 Minutes, Once, On Thu01/15/24 at 1245, For 1dose, Administer brentuximab vedotin within approximately 1 hour after completion of AVD (DOXOrubici n/vinBLAStine/dacarbazine).Start: 12-17-2023 End: 62-19-0059355 mg, intravenous, at 248 mL/hr, Administer over 30 Minutes, Once, On Joanne 12/17/23 at 1200, For 1 dose, Administer brentuximab vedotin within approximately 1 hour after completion of AVD (DOXOrubicin /vinBLAStine/dacarbazine).Start: 12-03-2023 End: 12-49-4818682 mg, intravenous, at 248 mL/hr, Administer over 30 Minutes, Once, On Joanne 12/03/23 at 1100, For 1 dose, Administer brentuximab vedotin within approximately 1 hour after completion of AVD (DOXOrubicin/ vinBLAStine/dacarbazine).Start: 11-19-2023 End: 16-59-0148164 mg, intravenous, at 248 mL/hr, Administer over 30 Minutes, Once, On Thu11/19/23 at 1215, For 1 dose, Administer brentuximab vedotin within approximately 1 hour after completion of AVD (DOXOrubicin /vinBLAStine/dacarbazine).Start: 11-05-2023 End: 88-51-0969916 mg, intravenous, at 248 mL/hr, Administer over 30 Minutes, Once, On Joanne 11/05/23 at 1145, For 1 dose, Administer brentuximab vedotin within approximately 1 hour after completion of AVD (DOXOrubicin/ vinBLAStine/dacarbazine).Start: 10-22-2023 End: 06-11-8951972 mg, intravenous, at 248 mL/hr, Administer over 30 Minutes, Once, On Joanne 10/22/23 at 1200, For 1 dose, Administer brentuximab vedotin within approximately 1 hour after completion of AVD (DOXOrubicin /vinBLAStine/dacarbazine).Start: 09-24-2023 End: 82-93-9553303 mg, intravenous, at 248 mL/hr, Administer over 30 Minutes, Once, On Joanne 09/24/23 at 1145, For 1 dose, Administer brentuximab vedotin within approximately 1 hour after completion of AVD (DOXOrubicin /vinBLAStine/dacarbazine).Start: 09-10-2023 End: 03-05-1942173 mg, intravenous, at 248 mL/hr, Administer over 30 Minutes, Once, On Joanne 09/10/23 at 1215, For 1 dose, Administer brentuximab vedotin within approximately 1 hour after completion of AVD (DOXOrubicin /vinBLAStine/dacarbazine).Start: 08-27-2023 End: 23-45-7103381 mg, intravenous, at 248 mL/hr, Administer over 30 Minutes, Once, On Joanne 08/27/23 at 1400, For 1 dose, Administer brentuximab vedotin within approximately 1 hour after completion of AVD (DOXOrubicin /vinBLAStine/dacarbazine).Start: 08-13-2023 End: 51-18-4074725 mg, intravenous, at 248 mL/hr, Administer over 30 Minutes, Once, On Joanne 08/13/23 at 1215, For 1 dose, Administer brentuximab vedotin within approximately 1 hour after completion of AVD (DOXOrubicin /vinBLAStine/dacarbazine).Start: 07-31-2023 End: 72-24-5841449 mg, intravenous, at 248 mL/hr, Administer over 30 Minutes, Once, On Thu07/31/23 at 1245, For 1 dose, Administer brentuximab vedotin within approximately 1 hour after completion of AVD (DOXOrubicin/ vinBLAStine/dacarbazine).brentuximab vedotin (ADCETRIS) 120 mg in sodium chloride 0.9 % 150 mL chemo IVPB (1 source)Start: 2023 End: 30-34-0499986 mg, intravenous, at 348 mL/hr, Administer over 30 Minutes, Once, On Joanne 12/31/23 at 1200, For 1 dose, Administer brentuximab vedotin within approximately 1 hour after completion of AVD (DOXOrubicin /vinBLAStine/dacarbazine).carvedilol 3.125 mg oral tablet (20 sources)alpha-Adrenergic Mary, beta-Adrenergic BlockerStart: 07-16-2023 End: 15-71-1137hposdbiicM (COREG) 3.125 mg tablet HOLD until outpatient follow- up with Cardiology 07/16/2023 09/10/2023 DiscontinuedStart: 85-93-0233zqwq 2 tablets by mouth once dailyCoreg 3.125 mg Tab 6.25 mg = 2 tab(s), Oral, Daily, Refills(s) 0 Start Date: 10/24/19 Status: Ordered End: 74-19-2696ptog 1 tablet by mouth in the morning, then take 1 tablet by mouth at mealtimecarvediloL (COREG) 3.125 mg tablet Take 1 tablet (3.125 mg total) by mouth in the morning and 1 tablet (3.125 mg total) in the evening. Take with meals. 07/14/2023 Discontinueddacarbazine (DTIC) 855 mg in sodium chloride 0.9 % (PVC) 500 mL chemo IVPB (3 sources)Start: 10-27-2024 End: 08-51-2296714 mg (375 mg/m2 2.28 m2 Treatment Plan BSA from Recorded weight), intravenous, at 1,171 mL/hr, Administer over 30 Minutes, Once, On Joanne 10/27/24 at 1030, For 1 dose, Too rapid infusion may cause severe venous irritation. Do NOT use if solution turns red or pink.Start: 09-29-2024 End: 76-92-9543585 mg (375 mg/m2 2.28 m2 Treatment Plan BSA from Recorded weight), intravenous, at 1,171 mL/hr, Administer over 30 Minutes, Once, On Joanne 09/29/24 at 0915, For 1 dose, Too rapid infusion may cause severe venous irritation. Do NOT use if solution turns red or pink.Start: 09-01-2024 End: 24-07-3217877 mg (375 mg/m2 2.28 m2 Treatment Plan BSA from Recorded weight), intravenous, at 1,171 mL/hr, Administer over 30 Minutes, Once, On Joanne 09/01/24 at 1015, For 1 dose, Too rapid infusion may cause severe venous irritation. Do NOT use if solution turns red or pink.dacarbazine (DTIC) 855 mg in sodium chloride 0.9 % 500 mL chemo IVPB (7 sources)Start: 12-08-2024 End: 67-07-3238294 mg (375 mg/m2 2.28 m2 Treatment Plan BSA from Recorded weight), intravenous, at 1,171 mL/hr, Administer over 30 Minutes, Once, On Joanne 12/08/24 at 1300, For 1 dose, Too rapid infusion may cause severe venous irritation. Do NOT use if solution turns red or pink.Start: 11-24-2024 End: 18-54-2805707 mg (375 mg/m2 2.28 m2 Treatment Plan BSA from Recorded weight), intravenous, at 1,171 mL/hr, Administer over 30 Minutes, Once, On Joanne 11/24/24 at 0945, For 1 dose, Too rapid infusion may cause severe venous irritation. Do NOT use if solution turns red or pink.Start: 11-10-2024 End: 41-32-8337456 mg (375 mg/m2 2.28 m2 Treatment Plan BSA from Recorded weight), intravenous, at 1,171 mL/hr, Administer over 30 Minutes, Once, On Joanne 11/10/24 at 1100, For 1 dose, Too rapid infusion may cause severe venous irritation. Do NOT use if solution turns red or pink.Start: 10-13-2024 End: 63-22-0025876 mg (375 mg/m2 2.28 m2 Treatment Plan BSA from Recorded weight), intravenous, at 1,171 mL/hr, Administer over 30 Minutes, Once, On Joanne 10/13/24 at 1000, For 1 dose, Too rapid infusion may cause severe venous irritation. Do NOT use if solution turns red or pink.Start: 09-15-2024 End: 92-40-5056402 mg (375 mg/m2 2.28 m2 Treatment Plan BSA from Recorded weight), intravenous, at 1,171 mL/hr, Administer over 30 Minutes, Once, On Joanne 09/15/24 at 1230, For 1 dose, Too rapid infusion may cause severe venous irritation. Do NOT use if solution turns red or pink.Start: 08-04-2024 End: 23-38-5285395 mg (375 mg/m2 2.28 m2 Treatment Plan BSA from Recorded weight), intravenous, at 1,171 mL/hr, Administer over 30 Minutes, Once, On Joanne 08/04/24 at 1115, For 1 dose, Too rapid infusion may cause severe venous irritation. Do NOT use if solution turns red or pink.Start: 07-21-2024 End: mg (375 mg/m2 2.28 m2 Treatment Plan BSA from Recorded weight), intravenous, at 1,171 mL/hr, Administer over 30 Minutes, Once, On Joanne 07/21/24 at 1130, For 1 dose, Too rapid infusion may cause severe venous irritation. Do NOT use if solution turns red or pink.dacarbazine (DTIC) 900 mg in sodium chloride 0.9 % 500 mL chemo IVPB (1 source)Start: 09-24-2023 End: mg (rounded from 858.75 mg = 375 mg/m2 2.29 m2 Treatment Plan BSA from Recorded weight), intravenous, at 1,180 mL/hr, Administer over 30 Minutes, Once, On Joanne 09/24/23 at 1115, For 1 dose, Too rapid infusion may cause severe venous irritation. Do NOT use if solution turns red or pink.dexAMETHasone (DECADRON) 12 mg, palonosetron (ALOXI) 0.25 mg in sodium chloride 0.9 % (PVC) 50 mL IVPB (4 sources)Start: 10-27-2024 End: 78-30-4027wtxygvtrhwc, at 232 mL/hr, Administer over 15 Minutes, Once, On Joanne 10/27/24 at 0930, For 1 doseStart: 09-29-2024 End: 86-59-1746udsedxhsofm, at 232 mL/hr, Administer over 15 Minutes, Once, On Joanne 09/29/24 at 0815, For 1 doseStart: 09-15-2024 End: 69-85-3982bcfxkaiyzur, at 232 mL/hr, Administer over 15 Minutes, Once, On Joanne 09/15/24 at 1130, For 1 doseStart: 09-01-2024 End: 06-34-6817qmswfmrprxt, at 232 mL/hr, Administer over 15 Minutes, Once, On Joanne 09/01/24 at 0915, For 1 dosedexAMETHasone (DECADRON) 12 mg, palonosetron (ALOXI) 0.25 mg in sodium chloride 0.9 % 50 mL IVPB (18 sources)Start: 12-08-2024 End: 88-23-9239muanpnlotwo, at 232 mL/hr, Administer over 15 Minutes, Once, On [facility] 12/08/24 at 1200, For 1 doseStart: 11-24-2024 End: 11-96-0538kkvptdqsnea, at 232 mL/hr, Administer over 15 Minutes, Once, On [facility] 11/24/24 at 0845, For 1 doseStart: 11-10-2024 End: 04-50-8799ugyiefjwtjk, at 232 mL/hr, Administer over 15 Minutes, Once, On Joanne 11/10/24 at 1000, For 1 doseStart: 10-13-2024 End: 45-43-6129bnvgrjfbfjg, at 232 mL/hr, Administer over 15 Minutes, Once, On [facility] 10/13/24 at 0900, For 1 doseStart: 08-04-2024 End: 04-84-5253qupuhlibmcv, at 232 mL/hr, Administer over 15 Minutes, Once, On [facility] 08/04/24 at 1015, For 1 doseStart: 07-21-2024 End: 24-25-6954aipafxbmqnh, at 232 mL/hr, Administer over 15 Minutes, Once, On [facility] 07/21/24 at 1030, For 1 doseStart: 07-07-2024 End: 92-46-6698ruixbtuujck, at 232 mL/hr, Administer over 15 Minutes, Once, On [facility] 07/07/24 at 0945, For 1 doseStart: 2023 End: 07-49-2041obkfzflobbo, at 232 mL/hr, Administer over 15 Minutes, Once, On [facility] 12/31/23 at 1030, For 1 doseStart: 12-17-2023 End: 06-61-6050gsurgwicioh, at 232 mL/hr, Administer over 15 Minutes, Once, On [facility] 12/17/23 at 1030, For 1 doseStart: 12-03-2023 End: 43-84-1543jlntofsbtcu, at 232 mL/hr, Administer over 15 Minutes, Once, On [facility] 12/03/23 at 1045, For 1 doseStart: 11-19-2023 End: 16-13-8006fkdfyhvpqzm, at 232 mL/hr, Administer over 15 Minutes, Once, On Joanne 11/19/23 at 1045, For 1 doseStart: 11-05-2023 End: 54-43-8682eztwrhpwzle, at 232 mL/hr, Administer over 15 Minutes, Once, On Joanne 11/05/23 at 1015, For 1 doseStart: 10-22-2023 End: 74-14-0968jjjyjemwbyx, at 232 mL/hr, Administer over 15 Minutes, Once, On Joanne 10/22/23 at 1030, For 1 doseStart: 09-24-2023 End: 78-06-6638fcemgssloih, at 232 mL/hr, Administer over 15 Minutes, Once, On Joanne 09/24/23 at 1015, For 1 doseStart: 09-10-2023 End: 66-50-7510ritgeqvfeey, at 232 mL/hr, Administer over 15 Minutes, Once, On Joanne 09/10/23 at 1045, For 1 doseStart: 08-27-2023 End: 76-95-4749ukcllgnduvr, at 232 mL/hr, Administer over 15 Minutes, Once, On Joanne 08/27/23 at 1230, For 1 doseStart: 08-13-2023 End: 69-21-3778agtrypsexjr, at 232 mL/hr, Administer over 15 Minutes, Once, On Thu08/13/23 at 1045, For 1 doseStart: 07-31-2023 End: 10-03-7797ofrojkkbjex, at 232 mL/hr, Administer over 15 Minutes, Once, On Thu07/31/23 at 1115, For 1 dosediphenhydrAMINE hydrochloride 25 mg oral capsule (20 sources)Histamine-1 Receptor AntagonistStart: 12-08-2024 End: 60-95-3532vsdc 25 mg by mouth once25 mg, oral, Once, On Joanne 12/08/24 at 1200, For 1 dose, Look-alike/sound-alike medication - verify indication for use. Start: 11-24-2024 End: 08-56-3143zsaz 25 mg by mouth once25 mg, oral, Once, On Joanne 11/24/24 at 0845, For 1 dose, Look-alike/sound-alike medication - verify indication for use. Start: 11-10-2024 End: 43-80-5517rnys 25 mg by mouth once25 mg, oral, Once, On Joanne 11/10/24 at 1000, For 1 dose, Look-alike/sound-alike medication - verify indication for use. Start: 10-27-2024 End: 07-52-5328ottg 25 mg by mouth once25 mg, oral, Once, On Joanne 10/27/24 at 0930, For 1 dose, Look-alike/sound-alike medication - verify indication for use. Start: 10-13-2024 End: 87-39-2706oclo 25 mg by mouth once25 mg, oral, Once, On Joanne 10/13/24 at 0900, For 1 dose, Look-alike/sound-alike medication - verify indication for use. Start: 09-29-2024 End: 82-22-4457pkbj 25 mg by mouth once25 mg, oral, Once, On Joanne 09/29/24 at 0815, For 1 dose, Look-alike/sound-alike medication - verify indication for use.Start: 09-15-2024 End: 84-61-9933hfcx 25 mg by mouth once25 mg, oral, Once, On Joanne 09/15/24 at 1130, For 1 dose, Look-alike/sound-alike medication - verify indication for use. Start: 09-01-2024 End: 82-63-5062lybh 25 mg by mouth once25 mg, oral, Once, On Joanne 09/01/24 at 0915, For 1 dose, Look-alike/sound-alike medication - verify indication for use.Start: 08-04-2024 End: 47-00-5120iqma 25 mg by mouth once25 mg, oral, Once, On Joanne 08/04/24 at 1015, For 1 dose, Look-alike/sound-alike medication - verify indication for use.Start: 07-21-2024 End: 73-86-6552awdy 25 mg by mouth once25 mg, oral, Once, On Joanne 07/21/24 at 1030, For 1 dose, Look-alike/sound-alike medication - verify indication for use. Start: 07-07-2024 End: 82-75-6754vqaj 25 mg by mouth once25 mg, oral, Once, On Joanne 07/07/24 at 0945, For 1 dose, Look-alike/sound-alike medication - verify indication for use. Start: 02-11-2024 End: 61-14-3280anml 25 mg intravenously once25 mg, intravenous, Once, On Joanne 02/11/24 at 1045, For 1 dose, Look-alike/sound-alike medication - verify indication for use., Intravenous Specific Administration: IV PushStart: 01-28-2024 End: 03-97-3281jaqc 25 mg intravenously once25 mg, intravenous, Once, On Joanne 01/28/24 at 1030, For 1 dose, Look-alike/sound-alike medication - verify indication for use., Intravenous Specific Administration: IV PushStart: 01-15-2024 End: 87-63-9194eenk 25 mg intravenously once25 mg, intravenous, Once, On Thu01/15/24 at 1115, For 1 dose, Look-alike/sound-alike medication - verify indication for use., Intravenous Specific Administration: IV PushStart: 2023 End: 27-90-4599sjzy 25 mg intravenously once25 mg, intravenous, Once, On Joanne 12/31/23 at 1030, For 1 dose, Look-alike/sound-alike medication - verify indication for use., Intravenous Specific Administration: IV PushStart: 12-17-2023 End: 70-03-0546cdgs 25 mg intravenously once25 mg, intravenous, Once, On Joanne 12/17/23 at 1030, For 1 dose, Look-alike/sound-alike medication - verify indication for use., Intravenous Specific Administration: IV PushStart: 12-03-2023 End: 12-83-6863dxgg 25 mg intravenously once25 mg, intravenous, Once, On Joanne 12/03/23 at 1045, For 1 dose, Look-alike/sound-alike medication - verify indication for use., Intravenous Specific Administration: IV PushStart: 11-19-2023 End: 44-62-0179juvw 25 mg intravenously once25 mg, intravenous, Once, On Joanne 11/19/23 at 1045, For 1 dose, Look-alike/sound-alike medication - verify indication for use., Intravenous Specific Administration: IV PushStart: 11-05-2023 End: 85-64-5706mova 25 mg intravenously once25 mg, intravenous, Once, On Joanne 11/05/23 at 1015, For 1 dose, Look-alike/sound-alike medication - verify indication for use., Intravenous Specific Administration: IV PushStart: 10-22-2023 End: 24-33-2709caqm 25 mg intravenously once25 mg, intravenous, Once, On Joanne 10/22/23 at 1030, For 1 dose, Look-alike/sound-alike medication - verify indication for use., Intravenous Specific Administration: IV PushStart: 09-24-2023 End: 01-61-1309nglq 25 mg intravenously once25 mg, intravenous, Once, On Joanne 09/24/23 at 1015, For 1 dose, Look-alike/sound-alike medication - verify indication for use., Intravenous Specific Administration: IV PushStart: 09-10-2023 End: 88-57-0760hlsz 25 mg by mouth once25 mg, oral, Once, On Joanne 09/10/23 at 1045, For 1 dose, Look-alike/sound-alike medication - verify indication for use. Start: 08-27-2023 End: 01-22-5416yocz 25 mg by mouth once25 mg, oral, Once, On Joanne 08/27/23 at 1230, For 1 dose, Look-alike/sound-alike medication - verify indication for use. Start: 08-13-2023 End: 60-46-1114oyul 25 mg by mouth once25 mg, oral, Once, On Joanne 08/13/23 at 1045, For 1 dose, Look-alike/sound-alike medication - verify indication for use. Start: 07-31-2023 End: 88-72-8125zouk 25 mg by mouth once25 mg, oral, Once, On Thu07/31/23 at 1115, For 1 dose, Look-alike/sound-alike medication - verify indication for use. DOXOrubicin hydrochloride 2 mg/ml injectable solution (11 sources)Anthracycline Topoisomerase InhibitorStart: 12-08-2024 End: mg (25 mg/m2 2.28 m2 Treatment Plan BSA from Recorded weight), intravenous, Once, On Joanne 12/08/25at 1230, For 1 dose, Look-alike/sound-alike medication - verify indication for use. IV push over 3-10 min. May have multiple syringes. Vesicant.Start: 11-24-2024 End: 46-39-067361 mg (25 mg/m2 2.28 m2 Treatment Plan BSA from Recorded weight), intravenous, Once, On Joanne 11/24/24at 0915, For 1 dose, Look-alike/sound-alike medication - verify indication for use. IV push over 3-10 min. May have multiple syringes. Vesicant.Start: 11-10-2024 End: 72-56-776160 mg (25 mg/m2 2.28 m2 Treatment Plan BSA from Recorded weight), intravenous, Once, On Joanne 11/10/24at 1030, For 1 dose, Look-alike/sound-alike medication - verify indication for use. IV push over 3-10 min. May have multiple syringes. Vesicant.Start: 10-27-2024 End: 72-88-842219 mg (25 mg/m2 2.28 m2 Treatment Plan BSA from Recorded weight), intravenous, Once, On Joanne 10/27/24at 1000, For 1 dose, Look-alike/sound-alike medication - verify indication for use. IV push over 3-10 min. May have multiple syringes. Vesicant.Start: 10-13-2024 End: 49-35-744903 mg (25 mg/m2 2.28 m2 Treatment Plan BSA from Recorded weight), intravenous, Once, On Joanne 10/13/24at 0930, For 1 dose, Look-alike/sound-alike medication - verify indication for use. IV push over 3-10 min. May have multiple syringes. Vesicant.Start: 09-29-2024 End: 68-28-074448 mg (25 mg/m2 2.28 m2 Treatment Plan BSA from Recorded weight), intravenous, Once, On Joanne 09/29/24 at 0845, For 1 dose, Look-alike/sound-alike medication - verify indication for use. IV push over 3-10 min. May have multiple syringes. Vesicant.Start: 09-15-2024 End: 58-72-934473 mg (25 mg/m2 2.28 m2 Treatment Plan BSA from Recorded weight), intravenous, Once, On Joanne 09/15/24at 1200, For 1 dose, Look-alike/sound-alike medication - verify indication for use. IV push over 3-10 min. May have multiple syringes. Vesicant.Start: 09-01-2024 End: 77-52-347448 mg (25 mg/m2 2.28 m2 Treatment Plan BSA from Recorded weight), intravenous, Once, On Joanne 09/01/24 at 0945, For 1 dose, Look-alike/sound-alike medication - verify indication for use. IV push over 3-10 min. May have multiple syringes. Vesicant.Start: 08-04-2024 End: 54-46-327857 mg (25 mg/m2 2.28 m2 Treatment Plan BSA from Recorded weight), intravenous, Once, On Joanne 08/04/24 at 1045, For 1 dose, Look-alike/sound-alike medication - verify indication for use. IV push over 3-10 min. May have multiple syringes. Vesicant.Start: 07-21-2024 End: 22-00-906733 mg (25 mg/m2 2.28 m2 Treatment Plan BSA from Recorded weight), intravenous, Once, On Joanne 07/21/24at 1100, For 1 dose, Look-alike/sound-alike medication - verify indication for use. IV push over 3-10 min. May have multiple syringes. Vesicant.Start: 09-24-2023 End: 60-68-165029 mg (rounded from 57.25 mg = 25 mg/m2 2.29 m2 Treatment Plan BSA from Recorded weight), intravenous, Once, On Joanne 09/24/23 at 1045, For 1 dose, Look-alike/sound-alike medication - verify indication for use. IV push over 3-10 min. May have multiple syringes. Vesicant.heparin (5 sources)Unfractionated Heparin, Anti-coagulantStart: 09-24-2023 End: 43-66-2037277 Units, intravenous, As needed, deaccessing, Starting on Joanne 09/24/23 at 1248, Heplock following NS flush. Look-alike/sound-alike medication - verify indication for use.Start: 09-10-2023 End: 41-51-7237546 Units, intravenous, As needed, deaccessing, Starting on Joanne 09/10/23 at 1037, Heplock following NS flush. Look-alike/sound-alike medication - verify indication for use.Start: 08-27-2023 End: 66-75-4027580 Units, intravenous, As needed, deaccessing, Starting on Joanne 08/27/23 at 1226, Heplock following NS flush. Look-alike/sound-alike medication - verify indication for use.Start: 08-13-2023 End: 90-04-3827789 Units, intravenous, As needed, deaccessing, Starting on Joanne 08/13/23 at 1431, Heplock following NS flush. Look-alike/sound-alike medication - verify indication for use.Start: 08-07-2023 End: 12-10-9766553 Units, intravenous, As needed, deaccessing, Starting on Thu08/07/23 at 1015, Heplock following NS flush. Look-alike/sound-alike medication - verify indication for use.gfqsjbwml-fkwqimmzbjinrtr-ydgpctqa-magnesium hydroxide-simethicone CMPD (MAGIC MOUTHWASH) (20 sources)Start: 10-14-2023 End: 86-72-6010ihnj 5 mL by mouth four times daily as needed bdmpshaab-vinyrfmwgizzrrf-hphtomju-magnesium hydroxide-simethicone CMPD (MAGIC MOUTHWASH) Swish andspit 5 mL 4 (four) times a day as needed for mouth/gum irritation. 250 mL 1 10/14/2023 09/16/2024 DiscontinuedStart: 19-77-1975ofxy 5 mL by mouth four times daily as needed yutautanu-yssnqdrgrniqtrk-nekoodga-magnesium hydroxide-simethicone CMPD (MAGIC MOUTHWASH) Swish andspit 5 mL 4 (four) times a day as needed for mouth/gum irritation. 250 mL 1 10/14/2023 Activemagnesium hydroxide 80 mg/ml oral suspension (20 sources)Start: 80-09-8999qpyt 15 mL by mouth once daily as needed for constipationmagnesium hydroxide (DULCOLAX, MAGNESIUM HYDROXIDE,) 400 mg/5 mL suspension Take 15 mL by mouth daily as needed (constipation). 15 mL 07/07/2023 Suspendedmelatonin 3 mg oral capsule (20 sources) End: 81-61-1483vcvw 1 capsule by mouth once daily as neededmelatonin 3 mg capsule Take 3 mg by mouth nightly as needed. 09/16/2024 Discontinuednivolumab (OPDIVO) 240 mg in sodium chloride 0.9 % 100 mL chemo IVPB (11 sources)Start: 12-08-2024 End: 29-28-0814236 mg, intravenous, at 124 mL/hr, Administer over 60 Minutes, Once, On [facility] 12/08/24 at 1200, For 1 dose, Administer using 0.2 to 1.2 micron in- line filter.Start: 11-24-2024 End: 21-38-0919299 mg, intravenous, at 124 mL/hr, Administer over 60 Minutes, Once, On [facility] 11/24/24 at 0845, For 1 dose, Administer using 0.2 to 1.2 micron in- line filter.Start: 11-10-2024 End: 32-32-6640548 mg, intravenous, at 124 mL/hr, Administer over 60 Minutes, Once, On [facility] 11/10/24 at 1000, For 1 dose, Administer using 0.2 to 1.2 micron in- line filter.Start: 10-27-2024 End: 18-53-2107584 mg, intravenous, at 124 mL/hr, Administer over 60 Minutes, Once, On [facility] 10/27/24 at 0930, For 1 dose, Administer using 0.2 to 1.2 micron in- line filter.Start: 10-13-2024 End: 67-14-4673012 mg, intravenous, at 124 mL/hr, Administer over 60 Minutes, Once, On [facility] 10/13/24 at 0900, For 1 dose, Administer using 0.2 to 1.2 micron in- line filter.Start: 09-29-2024 End: 13-90-8848189 mg, intravenous, at 124 mL/hr, Administer over 60 Minutes, Once, On [facility] 09/29/24 at 0815, For 1 dose, Administer using 0.2 to 1.2 micron in- line filter.Start: 09-15-2024 End: 20-76-7674198 mg, intravenous, at 124 mL/hr, Administer over 60 Minutes, Once, On [facility] 09/15/24 at 1130, For 1 dose, Administer using 0.2 to 1.2 micron in- line filter.Start: 09-01-2024 End: 48-83-6435735 mg, intravenous, at 124 mL/hr, Administer over 60 Minutes, Once, On [facility] 09/01/24 at 0915, For 1 dose, Administer using 0.2 to 1.2 micron in- line filter.Start: 08-04-2024 End: 01-85-1751178 mg, intravenous, at 124 mL/hr, Administer over 60 Minutes, Once, On [facility] 08/04/24 at 1015, For 1 dose, Administer using 0.2 to 1.2 micron in- line filter.Start: 07-21-2024 End: 86-52-9844282 mg, intravenous, at 124 mL/hr, Administer over 60 Minutes, Once, On [facility] 07/21/24 at 1030, For 1 dose, Administer using 0.2 to 1.2 micron in- line filter.Start: 07-07-2024 End: 86-62-3140532 mg, intravenous, at 124 mL/hr, Administer over 60 Minutes, Once, On [facility] 07/07/24 at 0945, For 1 dose, Administer using 0.2 to 1.2 micron in- line filter.5 ml palonosetron 0.05 mg/ml injection (3 sources)Serotonin-3 Receptor AntagonistStart: 02-11-2024 End: 40.25 mg, intravenous, Once, On Joanne 02/11/24 at 1045, For 1 dose Start: 01-28-2024 End: 40.25 mg, intravenous, Once, On Jo[facility] 01/28/24 at 1030, For 1 dose Start: 01-15-2024 End: .25 mg, intravenous, Once, On Thu01/15/24 at 1115, For 1 dose 0.6 ml pegfilgrastim-jmdb 10 mg/ml prefilled syringe (10 sources)Leukocyte Growth FactorStart: 12-09-2024 End: 89-24-2239oxyvar 1 dose by subcutaneous injection once6 mg, subcutaneous, Once, On Thu12/09/24 at 1500, For 1 dose, Administer once per cycle at least 24 hours after chemotherapy. Look-alike/sound-alike medication - verify indication for use., Indications: chemotherapy-induced neutropeniaStart: 11-25-2024 End: 18-32-0003htzbpi 1 dose by subcutaneous injection once6 mg, subcutaneous, Once, On Thu11/25/24 at 1430, For 1 dose, Administer once per cycle at least 24 hours after chemotherapy. Look-alike/sound-alike medication - verify indication for use., Indications: chemotherapy-induced neutropeniaStart: 11-11-2024 End: 83-40-4748ycifoz 1 dose by subcutaneous injection once6 mg, subcutaneous, Once, On Thu11/11/24 at 1415, For 1 dose, Administer once per cycle at least 24 hours after chemotherapy. Look-alike/sound-alike medication - verify indication for use., Indications: chemotherapy-induced neutropeniaStart: 10-28-2024 End: 68-44-8489zkaine 1 dose by subcutaneous injection once6 mg, subcutaneous, Once, On Thu10/28/24 at 1200, For 1 dose, Administer once per cycle at least 24 h ours after chemotherapy. Look-alike/sound-alike medication - verify indication for use., Indications: chemotherapy-induced neutropeniaStart: 10-14-2024 End: 66-70-9565gfeocq 1 dose by subcutaneous injection once6 mg, subcutaneous, Once, On Thu10/14/24 at 1200, For 1 dose, Administer once per cycle at least 24 hours after chemotherapy. Look-alike/sound-alike medication - verify indication for use., Indications: chemotherapy-induced neutropeniaStart: 09-30-2024 End: 58-20-2047pwdsfp 1 dose by subcutaneous injection once6 mg, subcutaneous, Once, On Thu09/30/24 at 1030, For 1 dose, Administer once per cycle at least 24 h ours after chemotherapy. Look-alike/sound-alike medication - verify indication for use., Indications: chemotherapy-induced neutropeniaStart: 09-16-2024 End: 31-05-8405jvdvkz 1 dose by subcutaneous injection once6 mg, subcutaneous, Once, On Thu09/16/24 at 1445, For 1 dose, Administer once per cycle at least 24 hours after chemotherapy. Look-alike/sound-alike medication - verify indication for use., Indications: chemotherapy-induced neutropeniaStart: 09-02-2024 End: 95-97-4688cpyqfl 1 dose by subcutaneous injection once6 mg, subcutaneous, Once, On Thu09/02/24 at 1315, For 1 dose, Administer once per cycle at least 24 h ours after chemotherapy. Look-alike/sound-alike medication - verify indication for use., Indications: chemotherapy-induced neutropeniaStart: 08-05-2024 End: 54-54-6733fnjgaq 1 dose by subcutaneous injection once6 mg, subcutaneous, Once, On Thu08/05/24 at 1345, For 1 dose, Administer once per cycle at least 24 h ours after chemotherapy. Look-alike/sound-alike medication - verify indication for use., Indications: chemotherapy-induced neutropeniaStart: 07-22-2024 End: 66-56-1835axaybp 1 dose by subcutaneous injection once6 mg, subcutaneous, Once, On Thu07/22/24 at 1415, For 1 dose, Administer once per cycle at least 24 hours after chemotherapy. Look-alike/sound-alike medication - verify indication for use., Indications: chemotherapy-induced neutropeniasacubitril 24 mg / valsartan 26 mg oral tablet (20 sources)Angiotensin 2 Receptor BlockerStart: 07-16-2023 End: 81-32-7491tsvuubtubL-valsartan (ENTRESTO) 24-26 mg tablet HOLD until outpatient follow-up with Cardiology 07/16/2023 09/10/2023 DiscontinuedStart: 11-23-2019 End: 37-06-0894ljyv 1 tablet by mouth in the morningsacubitriL-valsartan (ENTRESTO) 24-26 mg tablet Take 1 tablet by mouth in the morning. 11/23/2019 DiscontinuedStart: 59-60-6416runb 1 tablet by mouth twice dailyEntresto 24 mg-26 mg oral tablet 1 tab(s), Oral, BID Start Date: 10/24/19 Status: Ordered 125 ml sodium chloride 9 mg/ml prefilled syringe (20 sources)Start: 01-17-2025 End: mL, intravenous, As needed, port line care, Starting on Thu01/17/25 at 1318, Flush with NS prior to Heplock.Start: 12-08-2024 End: 22-68-3036kasu 25 mL intravenously every hour as qsloaa05 mL/hr, intravenous, Continuous PRN, When mainline IV needed (oncology protocol)., Starting on Thu12/08/24 at 1150, Match IVF to base solution of product being administered to ensure compatibility.Start: 12-07-2024 End: mL, intravenous, As needed, port line care, Starting on Thu12/08/24 at 1149, Flush with NS priorto Heplock.Start: 11-24-2024 End: 57-14-6811yhvi 25 mL intravenously every hour as opzjbq27 mL/hr, intravenous, Continuous PRN, When mainline IV needed (oncology protocol)., Starting on Thu11/24/24 at 0831, Match IVF to base solution of product being administered to ensure compatibility.Start: 11-23-2024 End: mL, intravenous, As needed, port line care, Starting on Thu11/24/24 at 0829, Flush with NS priorto Heplock.Start: 11-10-2024 End: 71-80-6392szvp 25 mL intravenously every hour as xvmzle64 mL/hr, intravenous, Continuous PRN, When mainline IV needed (oncology protocol)., Starting on Thu11/10/24 at 0957, Match IVF to base solution of product being administered to ensure compatibility.Start: 11-09-2024 End: mL, intravenous, As needed, port line care, Starting on Thu11/10/24 at 1311, Flush with NS priorto Heplock.Start: 10-27-2024 End: 96-19-9038gtmj 25 mL intravenously every hour as zosvxh41 mL/hr, intravenous, Continuous PRN, When mainline IV needed (oncology protocol)., Starting on Joanne 10/27/24 at 0916, Match IVF to base solution of product being administered to ensure compatibility.Start: 10-26-2024 End: 48-18-158333 mL, intravenous, As needed, port line care, Starting on Joanne 10/27/24 at 0904, Flush with NS priorto Heplock.Start: 10-13-2024 End: 62-43-6264lqst 25 mL intravenously every hour as jtmref73 mL/hr, intravenous, Continuous PRN, When mainline IV needed (oncology protocol)., Starting on Joanne 10/13/24 at 0859, Match IVF to base solution of product being administered to ensure compatibility.Start: 10-12-2024 End: 81-73-521319 mL, intravenous, As needed, port line care, Starting on Joanne 10/13/24 at 0850, Flush with NS priorto Heplock.Start: 09-29-2024 End: 75-43-5455wxsg 25 mL intravenously every hour as lzzynz26 mL/hr, intravenous, Continuous PRN, When mainline IV needed (oncology protocol)., Starting on Joanne 09/29/24 at 0801, Match IVF to base solution of product being administered to ensure compatibility.Start: 09-28-2024 End: 53-89-246965 mL, intravenous, As needed, port line care, Starting on Joanne 09/29/24 at 0752, Flush with NS prior to Heplock.Start: 09-15-2024 End: 18-64-113458 mL, intravenous, As needed, port line care, Starting on Joanne 09/15/24 at 1130, Flush with NS priorto Heplock.Start: 09-15-2024 End: 52-52-4096omet 25 mL intravenously every hour as oheeex85 mL/hr, intravenous, Continuous PRN, When mainline IV needed (oncology protocol)., Starting on Joanne 09/15/24 at 1119, Match IVF to base solution of product being administered to ensure compatibility.Start: 09-13-2024 End: 81-65-925709 mL, intravenous, As needed, port line care, Starting on Thu09/13/24 at 1050, Flush with NS priorto Heplock.Start: 09-01-2024 End: 60-35-944905 mL, intravenous, As needed, port line care, Starting on Joanne 09/01/24 at 0909, Flush with NS prior to Heplock.Start: 09-01-2024 End: 26-60-8897vwsf 25 mL intravenously every hour as ecblbw78 mL/hr, intravenous, Continuous PRN, When mainline IV needed (oncology protocol)., Starting on Joanne 09/01/24 at 0907, Match IVF to base solution of product being administered to ensure compatibility.Start: 08-30-2024 End: 72-71-259378 mL, intravenous, As needed, port line care, Starting on e 08/30/24 at 0957, Flush with NS prior to Heplock.Start: 08-16-2024 End: 02-45-115382 mL, intravenous, As needed, port line care, Starting on Thu08/16/24 at 1319, Flush with NS priorto Heplock.Start: 08-04-2024 End: 07-63-748294 mL, intravenous, As needed, port line care, Starting on Joanne 08/04/24 at 1308, Flush with NS prior to Heplock.Start: 08-04-2024 End: 66-19-0955cyna 25 mL intravenously every hour as mL/hr, intravenous, Continuous PRN, When mainline IV needed (oncology protocol)., Starting on Joanne 08/04/24 at 1006, Match IVF to base solution of product being administered to ensure compatibility.Start: 08-02-2024 End: 26-93-060112 mL, intravenous, As needed, port line care, Starting on e 08/02/24 at 1101, Flush with NS prior to Heplock.Start: 07-21-2024 End: 89-06-719979 mL, intravenous, As needed, port line care, Starting on Joanne 07/21/24 at 1045, Flush with NS priorto Heplock.Start: 07-21-2024 End: 69-52-9721gtia 25 mL intravenously every hour as yxpjia05 mL/hr, intravenous, Continuous PRN, When mainline IV needed (oncology protocol)., Starting on Joanne 07/21/24 at 1028, Match IVF to base solution of product being administered to ensure compatibility.Start: 07-18-2024 End: 71-68-189770 mL, intravenous, As needed, port line care, Starting on Thu07/18/24 at 1503, Flush with NS priorto Heplock.Start: 07-07-2024 End: 58-21-249575 mL, intravenous, As needed, port line care, Starting on Joanne 07/07/24 at 0945, Flush with NS priorto Heplock.Start: 07-07-2024 End: 49-62-1399rjzw 25 mL intravenously every hour as pyjhqw78 mL/hr, intravenous, Continuous PRN, When mainline IV needed (oncology protocol)., Starting on Joanne 07/07/24 at 0944, Match IVF to base solution of product being administered to ensure compatibility.Start: 07-05-2024 End: 44-91-858855 mL, intravenous, As needed, port line care, Starting on Thu07/05/24 at 1217, Flush with NS prior to Heplock.Start: 62-98-182686 mL, intravenous, As needed, port line care, Starting on Joanne 06/02/24 at 1156, Flush with NS prior to Heplock.Start: 02-11-2024 End: 11-38-467905 mL, intravenous, As needed, port line care, Starting on Joanne 02/11/24 at 1037, Flush with NS prior to Heplock.Start: 02-11-2024 End: 82-31-7268sszk 25 mL intravenously every hour as wjedgr38 mL/hr, intravenous, Continuous PRN, When mainline IV needed (oncology protocol)., Starting on Joanne 02/11/24 at 1035, Match IVF to base solution of product being administered to ensure compatibility.Start: 01-28-2024 End: 14-87-875772 mL, intravenous, As needed, port line care, Starting on Joanne 01/28/24 at 1142, Flush with NS prior to Heplock.Start: 01-28-2024 End: 43-22-6449uguo 25 mL intravenously every hour as mL/hr, intravenous, Continuous PRN, When mainline IV needed (oncology protocol)., Starting on Joanne 01/28/24 at 1025, Match IVF to base solution of product being administered to ensure compatibility.Start: 79-30-419045 mL, intravenous, As needed, port line care, Starting on Thu01/15/24 at 1212, Flush with NS prior to Heplock.Start: 2023 End: 54-25-176448 mL, intravenous, As needed, port line care, Starting on Joanne 12/31/23 at 1024, Flush with NS priorto Heplock.Start: 2023 End: 56-31-8205ohih 25 mL intravenously every hour as azwtze73 mL/hr, intravenous, Continuous PRN, When mainline IV needed (oncology protocol)., Starting on Joanne 12/31/23 at 1023, Match IVF to base solution of product being administered to ensure compatibility.Start: 12-17-2023 End: 65-38-661676 mL, intravenous, As needed, port line care, Starting on [facility]anne 12/17/23 at 1015, Flush with NS priorto Heplock.Start: 12-17-2023 End: 49-17-9526yccg 25 mL intravenously every hour as kfveuw98 mL/hr, intravenous, Continuous PRN, When mainline IV needed (oncology protocol)., Starting on Joanne 12/17/23 at 1015, Match IVF to base solution of product being administered to ensure compatibility.Start: 12-03-2023 End: 08-83-2020cvas 25 mL intravenously every hour as mL/hr, intravenous, Continuous PRN, When mainline IV needed (oncology protocol)., Starting on Joanne 12/03/23 at 1036, Match IVF to base solution of product being administered to ensure compatibility.Start: 12-03-2023 End: 71-04-052902 mL, intravenous, As needed, port line care, Starting on Joanne 12/03/23 at 1028, Flush with NS prior to Heplock.Start: 11-19-2023 End: 43-26-8167ihci 25 mL intravenously every hour as ifwatu96 mL/hr, intravenous, Continuous PRN, When mainline IV needed (oncology protocol)., Starting on Joanne 11/19/23 at 1035, Match IVF to base solution of product being administered to ensure compatibility.Start: 11-05-2023 End: 48-45-832630 mL, intravenous, As needed, port line care, Starting on Joanne 11/05/23 at 1028, Flush with NS prior to Heplock.Start: 11-05-2023 End: 21-05-3080rxhl 25 mL intravenously every hour as wnrfuu05 mL/hr, intravenous, Continuous PRN, When mainline IV needed (oncology protocol)., Starting on Joanne 11/05/23 at 1012, Match IVF to base solution of product being administered to ensure compatibility.Start: 10-22-2023 End: 81-68-859901 mL, intravenous, As needed, port line care, Starting on Joanne 10/22/23 at 1102, Flush with NS priorto Heplock.Start: 10-22-2023 End: 45-48-4771cnto 25 mL intravenously every hour as fambks17 mL/hr, intravenous, Continuous PRN, When mainline IV needed (oncology protocol)., Starting on Joanne 10/22/23 at 1025, Match IVF to base solution of product being administered to ensure compatibility.Start: 09-24-2023 End: mL, intravenous, As needed, port line care, Starting on Joanne 09/24/23 at 1248, Flush with NS priorto [place]plock.Start: 09-24-2023 End: 31-21-9996epoo 25 mL intravenously every hour as cvoxmj56 mL/hr, intravenous, Continuous PRN, When mainline IV needed (oncology protocol)., Starting on Joanne 09/24/23 at 1010, Match IVF to base solution of product being administered to ensure compatibility.Start: 09-10-2023 End: mL, intravenous, As needed, port line care, Starting on Joanne 09/10/23 at 1037, Flush with NS priorto Heplock.Start: 09-10-2023 End: 57-27-1541orcj 25 mL intravenously every hour as ntuobl18 mL/hr, intravenous, Continuous PRN, When mainline IV needed (oncology protocol)., Starting on Thu09/10/23 at 1037, Match IVF to base solution of product being administered to ensure compatibility.Start: 08-27-2023 End: mL, intravenous, As needed, port line care, Starting on Thu08/27/23 at 1226, Flush with NS priorto Heplock.Start: 08-27-2023 End: ,000 mL, intravenous, at 500 mL/hr, Administer over 2 Hours, Once, On Thu08/27/23 at 1215, For 1 doseStart: 08-13-2023 End: 53-47-359674 mL, intravenous, As needed, port line care, Starting on Thu08/13/23 at 1431, Flush with NS priorto Heplock.Start: 08-13-2023 End: 96-53-6895zkcl 25 mL intravenously every hour as bsnvoz61 mL/hr, intravenous, Continuous PRN, When mainline IV needed (oncology protocol)., Starting on Thu08/13/23 at 1035, Match IVF to base solution of product being administered to ensure compatibility.Start: 08-13-2023 End: ,000 mL, intravenous, at 500 mL/hr, Administer over 2 Hours, Once, On Thu08/13/23 at 1030, For 1 doseStart: 08-07-2023 End: 71-25-388755 mL, intravenous, As needed, port line care, Starting on Thu08/07/23 at 1015, Flush with NS priorto [place]plock.Start: 07-31-2023 End: 34-87-1909hgtc 25 mL intravenously every hour as mL/hr, intravenous, Continuous PRN, When mainline IV needed (oncology protocol)., Starting on Thu07/31/23 at 1112, Match IVF to base solution of product being administered to ensure compatibility.vinBLAStine (VELBAN) 14 mg in sodium chloride 0.9 % (PVC) 50 mL chemo IVPB (3 sources)Start: 10-27-2024 End: 65-54-0562ewcw 1 dose intravenously once14 mg (rounded from 13.68 mg = 6 mg/m2 2.28 m2 Treatment Plan BSA from Recorded weight), intravenous, at 384 mL/hr, Administer over 10 Minutes, Once, On Jo[facility] 10/27/24 at 1015, For 1 dose, Give IV only.Fatal if given by other routes. VESICANT Look-alike/sound-alike medication - verify indication for use.Start: 09-15-2024 End: 28-23-9452ypbj 1 dose intravenously once14 mg (rounded from 13.68 mg = 6 mg/m2 2.28 m2 Treatment Plan BSA from Recorded weight), intravenous, at 384 mL/hr, Administer over 10 Minutes, Once, On Joanne 09/15/24 at 1215, For 1 dose, Give IV only.Fatal if given by other routes. VESICANT Look-alike/sound-alike medication - verify indication for use.Start: 09-01-2024 End: 09-75-9572uwjo 1 dose intravenously once14 mg (rounded from 13.68 mg = 6 mg/m2 2.28 m2 Treatment Plan BSA from Recorded weight), intravenous, at 384 mL/hr, Administer over 10 Minutes, Once, On Joanne 09/01/24 at 1000, For 1 dose, Give IV only. Fatal if given by other routes. VESICANT Look-alike/sound-alike medication - verify indication for use.vinBLAStine (VELBAN) 14 mg in sodium chloride 0.9 % 50 mL chemo IVPB (8 sources)Start: 12-08-2024 End: 44-46-8449wlwz 1 dose intravenously once14 mg (rounded from 13.68 mg = 6 mg/m2 2.28 m2 Treatment Plan BSA from Recorded weight), intravenous, at 384 mL/hr, Administer over 10 Minutes, Once, On Joanne 12/08/24 at 1245, For 1 dose, Give IV only.Fatal if given by other routes. VESICANT Look-alike/sound-alike medication - verify indication for use.Start: 11-24-2024 End: 00-80-5711iknk 1 dose intravenously once14 mg (rounded from 13.68 mg = 6 mg/m2 2.28 m2 Treatment Plan BSA from Recorded weight), intravenous, at 384 mL/hr, Administer over 10 Minutes, Once, On Joanne 11/24/24 at 0930, For 1 dose, Give IV only.Fatal if given by other routes. VESICANT Look-alike/sound-alike medication - verify indication for use.Start: 11-10-2024 End: 15-65-4299cctg 1 dose intravenously once14 mg (rounded from 13.68 mg = 6 mg/m2 2.28 m2 Treatment Plan BSA from Recorded weight), intravenous, at 384 mL/hr, Administer over 10 Minutes, Once, On Joanne 11/10/24 at 1045, For 1 dose, Give IV only.Fatal if given by other routes. VESICANT Look-alike/sound-alike medication - verify indication for use.Start: 10-13-2024 End: 01-46-4914hxrd 1 dose intravenously once14 mg (rounded from 13.68 mg = 6 mg/m2 2.28 m2 Treatment Plan BSA from Recorded weight), intravenous, at 384 mL/hr, Administer over 10 Minutes, Once, On Joanne 10/13/24 at 0945, For 1 dose, Give IV only.Fatal if given by other routes. VESICANT Look-alike/sound-alike medication - verify indication for use.Start: 09-29-2024 End: 65-27-6403uubj 1 dose intravenously once14 mg (rounded from 13.68 mg = 6 mg/m2 2.28 m2 Treatment Plan BSA from Recorded weight), intravenous, at 384 mL/hr, Administer over 10 Minutes, Once, On Joanne 09/29/24 at 0900, For 1 dose, Give IV only. Fatal if given by other routes. VESICANT Look-alike/sound-alike medication - verify indication for use.Start: 08-04-2024 End: 53-92-4468nnav 1 dose intravenously once14 mg (rounded from 13.68 mg = 6 mg/m2 2.28 m2 Treatment Plan BSA from Recorded weight), intravenous, at 384 mL/hr, Administer over 10 Minutes, Once, On Joanne 08/04/24 at 1100, For 1 dose, Give IV only. Fatal if given by other routes. VESICANT Look-alike/sound-alike medication - verify indication for use.Start: 07-21-2024 End: 20-64-3555emqv 1 dose intravenously once14 mg (rounded from 13.68 mg = 6 mg/m2 2.28 m2 Treatment Plan BSA from Recorded weight), intravenous, at 384 mL/hr, Administer over 10 Minutes, Once, On Joanne 07/21/24 at 1115, For 1 dose, Give IV only.Fatal if given by other routes. VESICANT Look-alike/sound-alike medication - verify indication for use.Start: 09-24-2023 End: 93-14-6788kuov 1 dose intravenously once14 mg (rounded from 13.74 mg = 6 mg/m2 2.29 m2 Treatment Plan BSA from Recorded weight), intravenous, at 384 mL/hr, Administer over 10 Minutes, Once, On Joanne 09/24/23 at 1100, For 1 dose, Give IV only.Fatal if given by other routes. VESICANT Look-alike/sound-alike medication - verify indication for use. 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]Onset: [id number]fzujw disorders (15 sources)Automatic implantable cardiac defibrillator in situ; 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: [Presence of automatic (implantable) cardiac defibrillator]Onset: 07-12-2021 71-65-3964CibtwubKeokixgqry heart failure; nonhypertensive (20 sources)Unspecified systolic (congestive) heart failure; 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: [Acute systolic (congestive) heart failure]Onset: 112157-86-6574Povzytr Coronary atherosclerosis and other heart disease (20 sources)Atherosclerotic heart disease of [place] coronary artery without angina pectoris; 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: [Atherosclerotic heart disease of [place] coronary artery with unstable angina pectoris]Onset: 00-95-6727ZldwarxPnamtivd atherosclerosis and other heart disease (4 sources)Presence of aortocoronary bypass graft; 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: [PRESENCE OF AORTOCORONARY BYPASS GRAFT]Onset: 37-61-6540PmsyqpyeYngfevhiv of lipid metabolism (1 source)Hyperlipidemia, unspecified; 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: [HYPERLIPIDEMIA, UNSPECIFIED]Onset: 20-72-4296UnypnjuCanzxawri hypertension (20 sources)Hypertensive disorder; 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: [Essential (primary) hypertension]Onset: [id number]`s disease (20 sources)Hodgkin's disease (clinical); 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: [Hodgkin lymphoma, unspecified, unspecified site]Onset: [id number]kbk with complications and secondary hypertension (20 sources)Hypertensive heart disease with heart failure; 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: [Hypertensive heart failure]Onset: [id number]-Ailibsh`s lymphoma (4 sources)Malignant lymphoma; 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: [Non-Hodgkin lymphoma, unspecified, unspecified site]Onset: 361303-78-8103JmrhbfsPjeuv aftercare (4 sources)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; 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: [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]32-39-3446EvxfjuezLyghb aftercare (1 source)Long-term current use of drug therapy; 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: [Encounter for therapeutic drug level monitoring]82-56-2655RyqdlemaQmrzx and ill-defined heart disease (1 source)Cardiomegaly; 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: [CARDIOMEGALY]Onset: 10-40-4522Lumtzxh Other circulatory disease (2 sources)Presence of other cardiac implants and grafts; 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: [PRESENCE OF OTHER CARDIAC IMPLANTS AND GRAFTS]Onset: 35-49-2342HxnlykwStqut congenital anomalies (1 source)Bilateral right-sidedness otsfhfqg68-32-7863XkcpgfpFirjg nervous system disorders (5 sources)Bilateral peripheral neuropathy of lower limbs; 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: [Unspecified mononeuropathy of bilateral lower limbs]Onset: ChronicOther nutritional; endocrine; and metabolic disorders (1 source)Body mass index 30+ - -92-4665DjyrwseJprft nutritional; endocrine; and metabolic disorders (20 sources)Hypomagnesemia; 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: [Hypomagnesemia]Onset: 10-03-2023 81-63-5058KpvrrgcIafjs nutritional; endocrine; and metabolic disorders (5 sources)Obese class II; 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: [Obesity, Class II, BMI 35-39.9]Onset: 760761-68-1315JwchblzDmtqh upper respiratory disease (2 sources)Chronic rhinitis; 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: [Chronic rhinitis]23-58-3305Kmtkiia Other upper respiratory disease (2 sources)Lesion of nose; 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: [Other specified disorders of nose and nasal sinuses]26-41-4270UthgyamvSfri-; endo-; and myocarditis; cardiomyopathy (20 sources)Cardiomyopathy, unspecified; 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: [Cardiomyopathy]Onset: 666756-98-1079WiepiciYenqlmfaw (except that caused by tuberculosis or sexually transmitted disease) (1 source)Pneumonia (except that caused by tuberculosis or sexually transmitted disease)Onset: 84-82-0570Gewrjhkd codes; unclassified (1 source)Pain, unspecified; 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: [Pain, unspecified]Onset: 06-25-2023 EpisodicUnclassified (2 sources)Unknown / UNK(Unknown)Onset: 63-55-3493Laxczfegwmxr (1 source)Hypertensive urgency; 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: [HYPERTENSIVE URGENCY]Onset: 99-95-5529Ywivfhpcruls (1 source)Patient encounter engphb44-15-0822Dgjzccarekun (1 source)Long-term current use of drug qmiquse44-55-0420Gkycmytafmvq (1 source)Labs OnlyOnset: 11-33-7265Pgyaodcwwkkj (1 source)InjectionOnset: 63-69-9425Wkrgahpbucvk (1 source)Outpatient InfusionOnset: 48-30-1919Trnqpkwjvtiq (1 source)Port/VAD CareOnset: 41-41-4480Hxjxinormmxo (2 sources)Nose BleedOnset: 02-14-2024 Past or Other Problems Problem ClassificationProblemDateDocumented DateEpisodic/ChronicCardiac dysrhythmias (6 sources)Tachycardia; 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: [Tachycardia, unspecified]Onset: 404210-16-8345WvhxoelhNmyyquveww associated with dizziness or vertigo (5 sources)Dizziness and giddiness; 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: [Dizziness and giddiness] Onset: 501562-34-5340LynwbxseSsxwefmv of white blood cells (20 sources)White blood cell count abnormal; 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: [Disorder of white blood cells, unspecified]Onset: 10-07-2023 Resolved: 904978-76-1638IetpnzrBntto and electrolyte disorders (20 sources)Hypokalemia; 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: [Hypokalemia]Onset: 10-03-2023 Resolved: 874651-17-7714PdvioudnFlcvhltojehgr and screening for infectious disease (1 source)Encounter for immunization; 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: [ENCOUNTER FOR IMMUNIZATION] Onset: 33-86-6781IgqsxlogTedwsatvac infection (20 sources)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; 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: [Acute gastroenteropathy due to [place] agent]Onset: 10-03-2023 Resolved: 960542-21-7718YceguffvXatlxol and fatigue (20 sources)Fatigue; 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: [Other fatigue]Onset: EpisodicNonspecific chest pain (2 sources)Chest pain, unspecified; 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: [CHEST PAIN, UNSPECIFIED] Onset: 73-78-0916YkpwukafTivfu aftercare (3 sources)Encounter for surgical aftercare following surgery on the circulatory system; 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: [snf (current) use of aspirin]Onset: 01-28-2017 EpisodicOther aftercare (6 sources)Long-term current use of anticoagulant; 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: [snf (current) use of anticoagulants]Onset: 445353-82-4335SqlcakwxFfwct and unspecified benign neoplasm (6 sources)Tubular adenoma of colon; 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: [Benign neoplasm of colon, unspecified]Onset: 611225-81-9221XsyynqhwXmbbc bone disease and musculoskeletal deformities (5 sources)Disorder of bone, unspecified; 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: [Disorder of bone and cartilage, unspecified]Onset: 700274-17-0640KkqrrpkqDusln gastrointestinal disorders (20 sources)Diarrhea; 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: [Diarrhea, unspecified]Onset: 10-03-2023 Resolved: 745631-93-6904ZzlljtqjWqqps gastrointestinal disorders (5 sources)Constipation; 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: [Constipation, unspecified]Onset: 184199-45-2043TaojwawoYetew gastrointestinal disorders (1 source)Diarrhea of presumed infectious origin; 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: [Diarrhea, unspecified]61-89-4373EfmidutmCceqo lower respiratory disease (20 sources)Lung mass; 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: [Other nonspecific abnormal finding of lung field]Onset: 745326-55-4888XqnouhwuEjtxe lower respiratory disease (1 source)Other nonspecific abnormal finding of lung field; 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: [Other nonspecific abnormal findingof lung field]Onset: 71-31-1798CyfrmsnkNrpur lower respiratory disease (1 source)Hypoxemia; 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: [Hypoxemia]Onset: 87-88-1364ZfzojtsqUjhxt upper respiratory disease (9 sources)Epistaxis; 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: [Epistaxis]Onset: EpisodicOther upper respiratory disease (7 sources)Bleeding from nose; 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: [Epistaxis]Onset: 02-22-2024 61-42-7954VolihwbnHcubdwfvn (except that caused by tuberculosis or sexually transmitted disease) (20 sources)Pneumonia; 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: [Pneumonia, unspecified organism]Onset: 005179-27-9445PitabpqwLzbdioruccj failure; insufficiency; arrest (adult) (1 source)Respiratory failure, unspecified, unspecified whether with hypoxia or hypercapnia; 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: [Respiratory failure, unspecified, unspecified whether with hypoxia or hypercapnia]Onset: 86-92-1212QnfkarvgMhesehfjj or history of mental health and substance abuse (1 source)Personal history of nicotine dependence; 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: [PERSONAL HISTORY OF NICOTINE DEPENDENCE]Onset: 37-04-4252MhhdpyuvMnthubjkt-related disorders (5 sources)Drug-induced insomnia; 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: [Other psychoactive substance use, unspecified with psychoactive substance-induced sleep disorder]Onset: 819947-45-6409CsbchvinRpvysaymjpru (3 sources)Abnormal findings on diagnostic imaging of heart and coronary circulation; 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: [Patient encounter status]Onset: EpisodicUnclassified (4 sources)Bone qyndof55-50-9854 Results Test NameValueInterpretationReference RangeFacilityOrders Onlyon 01-05-2025 Orders [id number] Torsten Haywood 1955 Date Provider Department Center 01/05/2025 CARLOS TA HVC CARD [facility] Family History Problem Relation Age of Onset Coronary artery disease Father Coronary artery disease Brother Family Status - Relation Status Age at Mother Father BrotherNormalUniversity of Baptist Saint Anthony'S HospitalOrders [id number] Torsten Haywood [place] 1955 M Date Provider Department Center 01/05/2025 KAY GRIMES HVC CARD [facility] Family History Problem Relation Age of Onset Coronary artery disease Father Coronary artery disease Brother Family Status - Relation Status Age at Mother Father BrotherNormalUniMansfield HospitalCBC WITH AUTO DIFFERENTIALon 55-65-6650Ybjy form neutrophils/100 WBC (Bld)3 %NormalPremier Health Comment on above:Order Comment: See Springboard - Labs Due report.Result Comment: This is an appended report. These results have been appended to a previously preliminary verified report.Performed By: #### CBCA ####[facility] ([facility])[address] [place], [place] [id number] VIR CELLAVISION DIFFERENTIAL TYPEMANUAL DIFFERENTIALNoalPremier Health Comment on above:Order Comment: See Springboard - Labs Due report.Result Comment: This is an appended report. These results have been appended to a previously preliminary verified report.Performed By: #### CBCA ####[facility] ([address] [id number] VIR CELLAVISION EOSINOPHILS ABSOLUTE COUNT (10*3/UL) BY MANUAL COUNT0.2 10*3/uL Normal0.0-0.4Premier HealthComment on above:Order Comment: See Springboard - Labs Due report.Result Comment: This is an appended report. These results have been appended to a previously preliminary verified report.Performed By: #### CBCA ####[facility] ([address] [id number] VIRCELLAVISION EOSINOPHILS PERCENT BY MANUAL COUNT1 %Normal Premier HealthComment on above:Order Comment: See Springboard - Labs Due report.Result Comment: This is an appended report. These results have been appended to a previously preliminary verified report.Performed By: #### CBCA ####[facility]URORATrang [facility] ([address], [id number] VIRCELLAVISION LYMPHOCYTES ABSOLUTE COUNT (10*3/UL) BY MANUAL COUNT6.2 10*3/uL High1.0-3.5PSt. John of God Hospital on above:Order Comment: See Springboard - Labs Due report.Result Comment: This is an appended report. These results have been appended to a previously preliminary verified report.Performed By: #### CBCA ####[facility]AT[facility] ([address], [id number] VIRCELLAVISION LYMPHOCYTES RELATIVE PERCENT BY MANUAL COUNT 36 %NormalBellevue Hospital on above:Order Comment: See Springboard - Labs Due report.Result Comment: This is an appended report. These results have been appended to a previously preliminary verified report.Performed By: #### CBCA ####[facility] ([address], [id number] VIRCELLAVISION METAMYELOCYTES RELATIVE PERCENT BY MANUAL COUNT1 %NormalBellevue Hospital on above:Order Comment: See Springboard - Labs Due report.Result Comment: This is an appended report. These results have been appended to a previously preliminary verified report.Performed By: #### CBCA ####[facility] ([address], [id number] VIRCELLAVISION MONOCYTES ABSOLUTE COUNT (10*3/UL) IN BLOOD BY MANUAL COUNT1.4 10*3/uLHigh0.0-0.9ProTexas Vista Medical Center on above: Order Comment: See Springboard - Labs Due report.Result Comment: This is an appended report. These results have been appended to a previously preliminary verified report.Performed By: #### CBCA ####[facility] ([address], [id number] VIRCELLAVISION MONOCYTES RELATIVE PERCENT BY MANUAL COUNT8 %NormalProTexas Vista Medical Center on above:Order Comment: See Springboard - Labs Due report.Result Comment: This is an appended report. These results have been appended to a previously preliminary verified report.Performed By: #### CBCA ####[facility] ([address], [id number] VIRCELLAVISION NEUTROPHILS ABSOLUTE COUNT BY MANUAL COUNT9.1 10*3/uLHigh1.5-6.6[facility] on above: Order Comment: See Springboard - Labs Due report.Result Comment: This is an appended report. These results have been appended to a previously preliminary verified report.Performed By: #### CBCA ####[facility] ([address], [id number] VIRCELLAVISION NEUTROPHILS RELATIVE PERCENT BY MANUAL COUNT51 %NormalProTexas Vista Medical Center on above: Order Comment: See Springboard - Labs Due report.Result Comment: This is an appended report. These results have been appended to a previously preliminary verified report.Performed By: #### CBCA ####[facility] ([address], [place] VIRCELLAVISION NUCLEATED RED BLOOD CELLS IN BLOOD BY LIGHT JMPICNPFSH3ArtwpcRxtCzpebiTexas Vista Medical Center on above:Order Comment: See Springboard - Labs Due report.Result Comment: This is an appended report. These results have been appended to a previously preliminary verified report.Performed By: #### CBCA ####[facility] ([address], [id number] VIRErythrocyte distribution width (RBC) [Ratio]19.5 %High11.5-15ProTexas Vista Medical Center on above:Order Comment: See Springboard - Labs Due report.Performed By: #### CBCA ####[facility] ([address], [id number] VIR Hematocrit (Bld) [Volume fraction]39.9 %Kkyqbg55-67CnxFykfwsPremier Health Comment on above:Order Comment: See Springboard - Labs Due report.Performed By: #### CBCA ####[facility] ([address], [id number] VIRHemoglobin (Bld) [Mass/Vol]13.1 g/kOXdgood35-91PwhOkxgbcPremier HealthComment on above:Order Comment: See Springboard - Labs Due report.Performed By: #### CBCA ####[facility] ([address], [address] VIRMCH (RBC) [Entitic mass]31.9 teZdpsjs95-49 Premier HealthComment on above:Order Comment: See Springboard - Labs Due report.Performed By: #### CBCA ####[facility] ([address], [place] VIRMCHC (RBC) [Mass/Vol]32.8 g/dLNormal 32-36Premier HealthComment on above:Order Comment: See Springboard - Labs Due report.Performed By: #### CBCA ####[facility] ([address], [id number] VIRMCV (RBC) [Entitic vol]97 fLNormal 80-100Premier HealthComment on above:Order Comment: See Springboard - Labs Due report.Performed By: #### CBCA ####[facility] ([address], [id number] VIRPlatelet mean volume (Bld) [Entitic vol]10.1 fLNormal7-12PSumma Health Barberton CampusComment on above:Order Comment: See Springboard - Labs Due report.Performed By: #### CBCA ####[facility] [address], [id number] VIRPlatelets (Bld) [#/Vol]375 10*3/nAYgilyq591-381PcaKycumc Fremont HospitalComcorewell health greenville hospital on above: Order Comment: See Springboard - Labs Due report.Performed By: #### CBCA ####[facility] AURORAA [facility] ([address], [id number] VIRRBC COUNT4.09 X10E12/LLow4.1-5.7Premier HealthComcorewell health greenville hospital on above: Order Comment: See Springboard - Labs Due report.Performed By: #### CBCA ####[facility] AURORATrang [address], [id number] VIRWBC (Bld) [#/Vol]17.1 10*3/uLHigh4-11Premier HealthComcorewell health greenville hospital on above:Order Comment: See Springboard - Labs Due report.Performed By: #### CBCA ####[facility] ([address], [id number] VIRCBC auto differentialon 17-55-2839Jnpv form neutrophils/100 WBC (Bld)3 % [facility] CenterComcorewell health greenville hospital on above:This is an appended report. These results have been appended to a previously preliminary verified report. Differential cell count method Nom (Bld)MANUAL DIFFERENTIALAdena Pike Medical CenterComment on above:This is an appended report. These results have been appended to a previously preliminary verified report.Eosinophils (Bld) [#/Vol] 0.2 10*3/uL0.0 - 0.4 10*3/uLFairfield Medical Center SystemComment on above:This is an appended report. These results have been appended to a previously preliminary verified report.Eosinophils/100 WBC (Bld)1 %[facility] Medical CenterComment on above:This is an appended report. These results have been appended to a previously preliminary verified report.Erythrocyte distribution width (RBC) [Ratio]19.5 %High11.5 - 15 %[facility] SystemHematocrit (Bld) [Volume fraction]39.9 %39 - 50 %[facility] Medical CenterHemoglobin (Bld) [Mass/Vol]13.1 g/dL13 - 17 g/dLAdena Pike Medical CenterInterpretation and review of laboratory resultsAbnormalAdena Pike Medical CenterLymphocytes (Bld) [#/Vol]6.2 10*3/uLHigh 1.0 - 3.5 10*3/uLFairfield Medical Center SystemComment on above:This is an appended report. These results have been appended to a previously preliminary verified re port.MCH (RBC) [Entitic mass]31.9 pg27 - 34 [facility] Health MiamisburgMCHC (RBC) [Mass/Vol]32.8 g/dL32 - 36 g/dLAdena Pike Medical CenterMCV (RBC) [Entitic vol]97 fL80 - 100 [facility] CenterMetamyelocytes/100 WBC (Bld)1 %[facility] Medical CenterComment on above:This is an appended report. These results have been appended to a previously preliminary verified report.Monocytes (Bld) [#/Vol]1.4 10*3/uLHigh0.0 - 0.9 10*3/uLFairfield Medical Center SystemComment on above: This is an appended report. These results have been appended to a previously preliminary verified report.Monocytes/100 WBC (Bld)8 %[facility] Comment on above:This is an appended report. These results have been appended to a previously preliminary verified report.Neutrophils (Bld) [#/Vol]9.1 10*3/uL High1.5 - 6.6 10*3/uLAdena Pike Medical CenterComment on above:This is an appended report. These results have been appended to a previously preliminary verified report.Neutrophils/100 WBC (Bld)51 %[facility] Medical CenterComment on above:This is an appended report. These results have been appended to a previously preliminary verified report.Nucleated RBC/100 WBC (Bld) [Ratio]2 %[facility] Medical CenterComment on above:This is an appended report. These results have been appended to a previously preliminary verified report.Platelet mean volume (Bld) [Entitic vol]10.1 fL7 - 12 fLPMercy Health Fairfield Hospital SystemPlatelets (Bld) [#/Vol]375 10*3/uLFairfield Medical Center SystemRBC (Bld) [#/Vol]4.09 10*6/uLLow [facility] CenterVariant lymphocytes/100 WBC (Bld)36 %[facility] Medical CenterComment on above:This is an appended report. These results have been appended to a previously preliminary verified report.WBC LM Ql (Sput)17.1High [facility]-Lewistown HospitalCOMPREHENSIVE METABOLIC PANELon 85-00-0777Ljlreub [Mass/Vol]3.6 g/dLNormal3.2-5.3PSumma Health Barberton Campus Comment on above:Order Comment: See Springboard - Labs Due reportPerformed By: #### CMP ####[facility] ([facility])[address] [place] [address] [place] [address] VIRALP [Catalytic activity/Vol]89 U/TZqcqql13-700AhfFdcplaPremier HealthComment on above:Order Comment: See Springboard - Labs Due reportPerformed By: #### CMP ####[facility] ([address] [place] [address] VIRALT [Catalytic activity/Vol]31 U/LNormal<=40 Premier HealthComment on above:Order Comment: See Springboard - Labs Due reportPerformed By: #### CMP ####[facility] ([address] [place] [address] VIRAnion gap [Moles/Vol]9 mmol/LNormal 5-15Premier HealthComment on above:Order Comment: See Springboard - Labs Due reportPerformed By: #### CMP ####[facility] ([address] [address] VIRAST [Catalytic activity/Vol]36 U/L Normal<=41Premier HealthComment on above:Order Comment: See Springboard - Labs Due reportPerformed By: #### CMP ####[facility] ([facility])[address] [place] [address] [place] [address] VIRBilirubin [Mass/Vol]0.5 mg/dLNormal0.3-1.2PSumma Health Barberton CampusComment on above:Order Comment: See Springboard - Labs Due reportPerformed By: #### CMP ####[facility] ([address] [place] [address] VIRCalcium [Mass/Vol]8.9 mg/dLNormal8.5-10.5PSumma Health Barberton CampusComment on above: Order Comment: See Springboard - Labs Due reportPerformed By: #### CMP ####[facility] ([address], [place] [address] VIRChloride [Moles/Vol]103 mmol/YAijcor94-315VayFoxhgkPremier Health Comment on above:Order Comment: See Springboard - Labs Due reportPerformed By: #### CMP ####[facility] ([address] [place] [address] VIRCO2 [Moles/Vol]25 mmol/EHqpbib34-82VpfWaaaykSumma Health Barberton CampusComment on above:Order Comment: See Springboard - Labs Due report Performed By: #### CMP ####[facility] ([address] [place] [address] VIRCreatinine [Mass/Vol]0.83 mg/dLNormal0.70-1.20 Premier HealthComment on above:Order Comment: See Springboard - Labs Due reportResult Comment: METHOD TRACEABLE TO IDMS STANDARDPerformed By: #### CMP ####[facility] ([address] [place] [address] VIREGFR (CKD-EPI) NON-RACE DEPENDENT>^90Normal>=60ProBaylor Scott & White Medical Center – Lake PointeComment on above:Order Comment: See Springboard - Labs Due reportResult Comment: eGFR not reported due to non-numeric value for Creatinine.Reported eGFR is based ontheCKD-EPI 2020 equation that doesnot use a race coefficient. Performed By: #### CMP ####[facility] ([address] [place] [address] VIRGlucose [Mass/Vol]131 mg/gWPfag09-91YakKwtxplBaylor Scott & White Medical Center – Lake PointeComment on above:Order Comment: See Springboard - Labs Due reportPerformed By: #### CMP ####[facility] ([address] [place] [address] VIRPotassium [Moles/Vol]4.1 mmol/LNormal3.5-5.0 Premier HealthComcorewell health greenville hospital on above:Order Comment: See Springboard - Labs Due reportPerformed By: #### CMP ####[facility] ([address] [place] [address] VIRProtein [Mass/Vol]6.5 g/dLNormal 6.0-8.0Premier HealthComment on above:Order Comment: See Springboard - Labs Due reportPerformed By: #### CMP ####[facility] ([address] [place] [address] VIRSodium [Moles/Vol]137 mmol/LNormal 134-146ProBaylor Scott & White Medical Center – Lake PointeComcorewell health greenville hospital on above:Order Comment: See Springboard - Labs Due reportPerformed By: #### CMP ####[facility] ([address] [place] [address] VIRUrea nitrogen [Mass/Vol]18 mg/dL Normal5-27ProBaylor Scott & White Medical Center – Lake PointeComment on above:Order Comment: See Springboard - Labs Due reportPerformed By: #### CMP ####[facility] ([address] [place] [address] VIRComprehensive metabolic panelon 23-18-7477Ierluis [Mass/Vol]3.6 g/dL3.2 - 5.3 g/dLFairfield Medical Center SystemALP [Catalytic activity/Vol]89 U/L39 - 130 U/LPrYuma District Hospital Health SystemALT No additional P-5'-P [Catalytic activity/Vol]31 U/LNINF - 40 U/L [facility] Medical CenterAnion gap [Moles/Vol]9 mmol/L5 - 15 mmol/LPrYuma District Hospital Health SystemAST [Catalytic activity/Vol]36 U/LNINF - 41 U/[facility] SystemBilirubin [Mass/Vol]0.5 mg/dL0.3 - 1.2 mg/dLAdena Pike Medical CenterCalcium [Mass/Vol]8.9 mg/dL8.5 - 10.5 mg/dLAdena Pike Medical CenterChloride [Moles/Vol] 103 mmol/L98 - 109 mmol/[facility] SystemCO2 [Moles/Vol]25 mmol/L22 - 32 mmol/[facility] SystemCreatinine [Mass/Vol]0.83 mg/dL0.70 - 1.20 mg/dL [facility] Medical CenterComment on above:METHOD TRACEABLE TO IDMS STANDARDEGFR Non-Race Dependent- Ballad HealthComment on above:eGFR not reported due to non-numeric value for Creatinine. Reported eGFR is based on the CKD-EPI 2020 equation that does not use a race coefficient. Glucose [Mass/Vol]131 mg/vGLnen22 - 99 mg/dLAdena Pike Medical Center Interpretation and review of laboratory resultsAbnormalAdena Pike Medical Center Potassium [Moles/Vol]4.1 mmol/L3.5 - 5.0 mmol/[facility] SystemProtein [Mass/Vol]6.5 g/dL6.0 - 8.0 g/dLAtrium Health Carolinas Medical Centerodium [Moles/Vol]137 mmol/L134 - 146 mmol/[facility] SystemUrea nitrogen [Mass/Vol]18 mg/dL5 - 27 mg/dLGeisinger-Lewistown HospitalTHYROID PROFILE INCLUDES TSH FT4on 00-58-3397Jjhr T4 [Mass/Vol]1.11 ng/dLNormal0.61-1.60Premier HealthComment on above:Performed By: #### THYR ####[facility] ([facility])[address] [place] [address], [id number] VIRTSH3.30 uIU/mLNormal 0.49-4.67Premier HealthComment on above:Performed By: #### THYR ####[facility] ([facility])[address] [place] [address], [id number] VIRThyroid profile includes TSH FT4on 17-08-7561Lscg T4 [Mass/Vol]1.11 ng/dL 0.61 - 1.60 ng/dLAdena Pike Medical CenterInterpretation and review of laboratory resultsNormalNorthern Regional Hospital Qn3.3 m[IU]/LProMedTomah Memorial HospitalCBC WITH AUTO DIFFERENTIALon 12-86-2599Mdhj form neutrophils/100 WBC (Bld)5 %NormalProBaylor Scott & White Medical Center – Lake PointeComment on above: Order Comment: See Springboard - Labs Due report.Result Comment: This is an appended report. These results have been appended to a previously preliminary verified report.Performed By: #### CBCA ####[facility] ([address], [id number] VIRCELLAVISION ATYPICAL LYMPHOCYTES RELATIVE PERCENT BY MANUAL COUNT19 %NormalProBaylor Scott & White Medical Center – Lake PointeComment on above:Order Comment: See Springboard - Labs Due report.Result Comment: This is an appended report. These results have been appended to a previously preliminary verified report.Performed By: #### CBCA ####[facility] ([address], [id number] VIRCELLAVISION BASOPHILS ABSOLUTE COUNT (10*3/UL) BY MANUAL COUNT0.4 10*3/uLHigh0.0-0.2PSumma Health [facility] Comment on above:Order Comment: See Springboard - Labs Due report.Result Comment: This is an appended report. These results have been appended to a previously preliminary verified report.Performed By: #### CBCA ####[facility] ([address], [id number] VIR CELLAVISION BASOPHILS RELATIVE PERCENT BY MANUAL COUNT3 %NormalProBaylor Scott & White Medical Center – Lake PointeComcorewell health greenville hospital on above:Order Comment: See Springboard - Labs Due report. Result Comment: This is an appended report. These results have been appended to a previously preliminary verified report.Performed By: #### CBCA ####[facility] ([facility])[address] [place] [address], [id number] VIR CELLAVISION DIFFERENTIAL TYPEMANUAL DIFFERENTIALNormalProBaylor Scott & White Medical Center – Lake Pointe Comment on above:Order Comment: See Springboard - Labs Due report.Result Comment: This is an appended report. These results have been appended to a previously preliminary verified report.Performed By: #### CBCA ####[facility] ([address], [id number] VIR CELLAVISION EOSINOPHILS ABSOLUTE COUNT (10*3/UL) BY MANUAL COUNT0.3 10*3/uL Normal0.0-0.4Premier HealthComcorewell health greenville hospital on above:Order Comment: See Springboard - Labs Due report.Result Comment: This is an appended report. These results have been appended to a previously preliminary verified report.Performed By: #### CBCA ####[facility] AURORATrang [facility] ([address], [id number] VIRCELLAVISION EOSINOPHILS PERCENT BY MANUAL COUNT2 %Normal [facility] HealthComcorewell health greenville hospital on above:Order Comment: See Springboard - Labs Due report.Result Comment: This is an appended report. These results have been appended to a previously preliminary verified report.Performed By: #### CBCA ####[facility] AURORATrang [facility] ([facility])[address] [place] [address], [id number] VIRCELLAVISION WINN-JOLLY BODIES IN BLOOD BY LIGHT MICROSCOPY1+Normal [facility] on above:Order Comment: See Springboard - Labs Due report.Result Comment: This is an appended report. These results have been appended to a previously preliminary verified report.Performed By: #### CBCA ####[facility])[address] [place] [address], [id number] VIRCELLAVISION LYMPHOCYTES ABSOLUTE COUNT (10*3/UL) BY MANUAL COUNT3.7 10*3/uL High1.0-3.5PSt. [facility] of God Hospital on above:Order Comment: See Springboard - Labs Due report.Result Comment: This is an appended report. These results have been appended to a previously preliminary verified report.Performed By: #### CBCA ####[facility] ([facility])[address] [place] [address], [id number] VIRCELLAVISION LYMPHOCYTES RELATIVE PERCENT BY MANUAL COUNT 10 %NormalProTexas Vista Medical Center on above:Order Comment: See Springboard - Labs Due report.Result Comment: This is an appended report. These results have been appended to a previously preliminary verified report.Performed By: #### CBCA ####[facility] ([address], [id number] VIRCELLAVISION MONOCYTES ABSOLUTE COUNT (10*3/UL) IN BLOOD BY MANUAL COUNT1.9 10*3/uLHigh0.0-0.9[facility] on above: Order Comment: See Springboard - Labs Due report.Result Comment: This is an appended report. These results have been appended to a previously preliminary verified report.Performed By: #### CBCA ####[facility] ([address], [id number] VIRCELLAVISION MONOCYTES RELATIVE PERCENT BY MANUAL COUNT15 %NormalProTexas Vista Medical Center on above: Order Comment: See Springboard - Labs Due report.Result Comment: This is an appended report. These results have been appended to a previously preliminary verified report.Performed By: #### CBCA ####[facility] ([address], [id number] VIRCELLAVISION NEUTROPHILS ABSOLUTE COUNT BY MANUAL COUNT6.5 10*3/uLNormal1.5-6.6ProTexas Vista Medical Center on above:Order Comment: See Springboard - Labs Due report.Result Comment: This is an appended report. These results have been appended to a previously prelimi nary verified report.Performed By: #### CBCA ####[facility] ([facility])[address], [id number] VIRCELLAVISION NEUTROPHILS RELATIVE PERCENT BY MANUAL COUNT46 %NormalProTexas Vista Medical Center on above:Order Comment: See Springboard - Labs Due report.Result Comment: This is an appended report. These results have been appended to a previously preliminary verified report.Performed By: #### CBCA ####[facility] ([facility])[address] [place], [place] [address]E.[facility]BOTHWE[facility]ERT, [id number] VIRCELLAVISION NUCLEATED RED BLOOD CELLS IN BLOOD BY LIGHT AOOOVLLHKF7GiipbzIwtOtqiywBellevue Hospital on above:Order Comment: See Springboard - Labs Due report.Result Comment: This is an appended report. These results have been appended to a previously preliminary verified report.Performed By: #### CBCA ####[facility] ([facility])[address] [place] [address] AVE.FREBOTH[facility]ERT, [id number] VIRCELLAVISION POLYCHROMASIA IN BLOOD BY LIGHT MICROSCOPY1+NormalB[facility]vue Hospital on above:Order Comment: See Springboard - Labs Due report.Result Comment: This is an appended report. These results have been appended to a previously preliminary verified report.Performed By: #### CBCA ####[facility] ([facility])[address] [place] [address] AVE.FREBOTH[facility]ENTERT, [id number] VIRErythrocyte distribution width (RBC) [Ratio] 19.4 %High11.5-15[facility] on above:Order Comment: See Springboard - Labs Due report.Performed By: #### CBCA ####[facility] AURORAA [facility] ([facility])[address], [id number] VIRHematocrit (Bld) [Volume fraction]41.5 %Ijpawm47-34BmvVkqzxxBellevue Hospital on above: Order Comment: See Springboard - Labs Due report.Performed By: #### CBCA ####[facility] ([address]FRELAFAY[facility], [id number] VIRHemoglobin (Bld) [Mass/Vol]13.6 g/iVBelrsh49-93JrsOvdbtjPremier Health Comment on above:Order Comment: See Springboard - Labs Due report.Performed By: #### CBCA ####[facility] ([facility])[address] [place] [address] AVE.[place], [id number] VIRMCH (RBC) [Entitic mass]31.5 hcTljiiz09-70LrzRtvdtlPremier HealthComcorewell health greenville hospital on above:Order Comment: See Springboard - Labs Due report.Performed By: #### CBCA ####[facility] ([address], [id number] VIRMCHC (RBC) [Mass/Vol]32.8 g/uNAggdez98-90 Premier HealthComment on above:Order Comment: See Springboard - Labs Due report.Performed By: #### CBCA ####[facility] ([address], [id number] VIRMCV (RBC) [Entitic vol]96 fLNormal 80-100Premier HealthComcorewell health greenville hospital on above:Order Comment: See Springboard - Labs Due report.Performed By: #### CBCA ####[facility] ([address], [id number] VIRPlatelet mean volume (Bld) [Entitic vol]10.1 fLNormal7-12PSt. John of God Hospital on above:Order Comment: See Springboard - Labs Due report.Performed By: #### CBCA ####[facility] ([address]RELAFAYET[facility], [id number] VIRPlatelets (Bld) [#/Vol]370 10*3/cGNnvwqk273-519EayAitmrr Fremont HospitalComment on above: Order Comment: See Springboard - Labs Due report.Performed By: #### CBCA ####[facility] ([facility])[address] [place] [address] AV.[place], [id number] VIRRBC COUNT4.32 X10E12/LNormal4.1-5.7Premier HealthComment on above:Order Comment: See Springboard - Labs Due report.Performed By: #### CBCA ####[facility] AURORAA [facility] ([facility])[address] [place] [address], [id number] VIRWBC (Bld) [#/Vol]12.8 10*3/uLHigh4-11Premier HealthComment on above:Order Comment: See Springboard - Labs Due report.Performed By: #### CBCA ####[facility] ([address], [id number] VIRCBC auto differentialon 29-62-1940Hfbf form neutrophils/100 WBC (Bld)5 % [facility] CenterComment on above:This is an appended report. These results have been appended to a previously preliminary verified report.Basophils (Bld) [#/Vol]0.4 10*3/uLHigh0.0 - 0.2 10*3/uLAdena Pike Medical CenterComment on above:This is an appended report. These results have been appended to a previously preliminary verified report.Basophils/100 WBC (Bld)3 %[facility] Medical CenterComment on above:This is an appended report. These results have been appended to a previously preliminary verified report.Differential cell count method Nom (Bld)MANUAL DIFFERENTIALAdena Pike Medical CenterComment on above:This is an appended report. These results have been appended to a previously preliminary verified report.Eosinophils (Bld) [#/Vol]0.3 10*3/uL0.0 - 0.4 10*3/uLFairfield Medical Center SystemComment on above:This is an appended report. These results have been appended to a previously preliminary verified report. Eosinophils/100 WBC (Bld)2 %[facility] Medical CenterComment on above:This is an appended report. These results have been appended to a previously preliminary verified report.Erythrocyte distribution width (RBC) [Ratio]19.4 %High11.5 - 15 %[facility] Medical CenterHematocrit (Bld) [Volume fraction]41.5 %39 - 50 % [facility] Medical CenterHemoglobin (Bld) [Mass/Vol]13.6 g/dL13 - 17 g/dLAdena Pike Medical CenterHowell-Woodlynne bodies LM Ql (Bld)1+[facility] Medical CenterComment on above:This is an appended report. These results have been appended to a previously preliminary verified report.Interpretation and review of laboratory resultsAbnormalAdena Pike Medical CenterLymphocytes (Bld) [#/Vol]3.7 10*3/uLHigh 1.0 - 3.5 10*3/uLAdena Pike Medical CenterComment on above:This is an appended report. These results have been appended to a previously preliminary verified re port.MCH (RBC) [Entitic mass]31.5 pg27 - 34 [facility] MiamisburgMCHC (RBC) [Mass/Vol]32.8 g/dL32 - 36 g/dLAdena Pike Medical CenterMCV (RBC) [Entitic vol]96 fL80 - 100 [facility] CenterMonocytes (Bld) [#/Vol]1.9 10*3/uLHigh0.0 - 0.9 10*3/uLAdena Pike Medical CenterComment on above:This is an appended report. These results have been appended to a previously preliminary verified report. Monocytes/100 WBC (Bld)15 %[facility] Medical CenterComcorewell health greenville hospital on above:This is an appended report. These results have been appended to a previously preliminary verified report.Neutrophils (Bld) [#/Vol]6.5 10*3/uL1.5 - 6.6 10*3/uLAdena Pike Medical CenterComment on above:This is an appended report. These results have been appended to a previously preliminary verified report.Neutrophils/100 WBC (Bld)46 %[facility] Medical CenterComcorewell health greenville hospital on above:This is an appended report. These results have been appended to a previously preliminary verified report. Nucleated RBC/100 WBC (Bld) [Ratio]3 %[facility] Medical CenterComment on above: This is an appended report. These results have been appended to a previously preliminary verified report.Platelet mean volume (Bld) [Entitic vol]10.1 fL7 - 12 [facility] CenterPlatelets (Bld) [#/Vol]370 10*3/uLAdena Pike Medical CenterPolychromasia LM Ql (Bld)1+[facility] Medical CenterComment on above:This is an appended report. These results have been appended to a previously preliminary verified report.RBC (Bld) [#/Vol]4.32 10*6/[facility] Variant lymphocytes/100 WBC (Bld)10 %[facility] Medical CenterComment on above: This is an appended report. These results have been appended to a previously preliminary verified report.Variant lymphocytes/100 WBC (Bld)19 %[facility] Medical CenterComment on above:This is an appended report. These results have been appended to a previously preliminary verified report.WBC LM Ql (Sput)12.8 [facility] HospitalCOMPREHENSIVE METABOLIC PANEL on 09-04-7407Xfwyntt [Mass/Vol]3.6 g/dLNormal3.2-5.3PSum[facility] Comment on above:Order Comment: See Springboard - Labs Due reportPerformed By: #### CMP ####[facility] ([address] [place] [address] VIRALP [Catalytic activity/Vol]90 U/SLkqxsl46-428WttJqmrpaPremier HealthComment on above:Order Comment: See Springboard - Labs Due reportPerformed By: #### CMP ####[facility] ([address] [address] VIRALT [Catalytic activity/Vol]41 U/LHigh<=40 Premier HealthComment on above:Order Comment: See Springboard - Labs Due reportPerformed By: #### CMP ####[facility] ([address] [place] [address] VIRAnion gap [Moles/Vol]8 mmol/LNormal 5-15Premier HealthComment on above:Order Comment: See Springboard - Labs Due reportPerformed By: #### CMP ####[facility] ([address] [place] [address] VIRAST [Catalytic activity/Vol]46 U/L High<=41ProBaylor Scott & White Medical Center – Lake PointeComment on above:Order Comment: See Springboard - Labs Due reportPerformed By: #### CMP ####[facility] ([address] [place] [address] VIRBilirubin [Mass/Vol]0.3 mg/dLNormal0.3-1.2PSumma Health Barberton CampusComment on above:Order Comment: See Springboard - Labs Due reportPerformed By: #### CMP ####[facility] ([address] [place] [address] VIRCalcium [Mass/Vol]9.2 mg/dLNormal8.5-10.5PSumma Health Barberton CampusComment on above: Order Comment: See Springboard - Labs Due reportPerformed By: #### CMP ####[facility] ([address], [place] [address] VIRChloride [Moles/Vol]102 mmol/HOfmrsj93-624ElhGzwmdjPremier Health Comment on above:Order Comment: See Springboard - Labs Due reportPerformed By: #### CMP ####[facility] ([address] [place] [address] VIRCO2 [Moles/Vol]27 mmol/ZPcwgjb79-82ErcJfsbecSumma Health Barberton CampusComment on above:Order Comment: See Springboard - Labs Due report Performed By: #### CMP ####[facility] ([address] [place] [address] VIRCreatinine [Mass/Vol]0.93 mg/dLNormal0.70-1.20 Premier HealthComment on above:Order Comment: See Springboard - Labs Due reportResult Comment: METHOD TRACEABLE TO IDMS STANDARDPerformed By: #### CMP ####[facility] ([facility])[address] [place] [address] VIREGFR (CKD-EPI) NON-RACE DEPENDENT>^90Normal>=60ProBaylor Scott & White Medical Center – Lake PointeComment on above:Order Comment: See Springboard - Labs Due reportResult Comment: eGFR not reported due to non-numeric value for Creatinine.EGFR not calculated due to patient's gender not being defined.Reported eGFR is based on theCKD-EPI 2020 equation that doesnotuse a race coefficient.Performed By: #### CMP ####[facility] ([address] [address] VIRGlucose [Mass/Vol]161 mg/oTLblk00-32UukYpesfwBaylor Scott & White Medical Center – Lake PointeComment on above:Order Comment: See Springboard - Labs Due reportPerformed By: #### CMP ####[facility] ([address] [address] VIRPotassium [Moles/Vol]4.3 mmol/LNormal3.5-5.0[facility] Comment on above:Order Comment: See Springboard - Labs Due reportPerformed By: #### CMP ####[facility] ([address] [address] VIRProtein [Mass/Vol]6.6 g/dLNormal6.0-8.0Premier HealthComment on above:Order Comment: See Springboard - Labs Due reportPerformed By: #### CMP ####[facility] ([address] [address] VIRSodium [Moles/Vol]137 mmol/UZnjuww125-093 Premier HealthComment on above:Order Comment: See Springboard - Labs Due reportPerformed By: #### CMP ####[facility] ([facility])[address] [place] [address] VIRUrea nitrogen [Mass/Vol]18 mg/dL Normal-Premier HealthComment on above:Order Comment: See Springboard - Labs Due reportPerformed By: #### CMP ####[facility] AURORAA [facility] ([facility])[address] [place] [address] VIRComprehensive metabolic panelon 56-76-1900Azqujla [Mass/Vol]3.6 g/dL3.2 - 5.3 g/dLGalion Hospital Health SystemALP [Catalytic activity/Vol]90 U/L39 - 130 U/[facility] Health SystemALT No additional P-5'-P [Catalytic activity/Vol]41 U/LHighNINF - 40 U/L [facility] Medical CenterAnion gap [Moles/Vol]8 mmol/L5 - 15 mmol/LPrYuma District Hospital Health SystemAST [Catalytic activity/Vol]46 U/LHighNINF - 41 U/[facility] Health SystemBilirubin [Mass/Vol]0.3 mg/dL0.3 - 1.2 mg/dLGalion Hospital Health SystemCalcium [Mass/Vol]9.2 mg/dL8.5 - 10.5 mg/dLFairfield Medical Center SystemChloride [Moles/Vol] 102 mmol/L98 - 109 mmol/[facility] Health SystemCO2 [Moles/Vol]27 mmol/L22 - 32 mmol/[facility] Health SystemCreatinine [Mass/Vol]0.93 mg/dL0.70 - 1.20 mg/dL [facility] Medical CenterComment on above:METHOD TRACEABLE TO IDMS STANDARDEGFR Non-Race Dependent- Ballad HealthComment on above:eGFR not reported due to non-numeric value for Creatinine. EGFR not calculated due to patient's gender not being defined. Reported eGFR is based on the CKD-EPI 202 equation that does not use a race coefficient. Glucose [Mass/Vol]161 mg/vGHuxe30 - 99 mg/dLAdena Pike Medical Center Interpretation and review of laboratory resultsAbnormalAdena Pike Medical Center Potassium [Moles/Vol]4.3 mmol/L3.5 - 5.0 mmol/[facility] Health SystemProtein [Mass/Vol]6.6 g/dL6.0 - 8.0 g/dLProWVUMedicine Harrison Community Hospitalodium [Moles/Vol]137 mmol/L134 - 146 mmol/[facility] SystemUrea nitrogen [Mass/Vol]18 mg/dL5 - 27 mg/dLProBellevue HospitalProCleveland Clinic [facility] Hospital SystemTHYROID PROFILE INCLUDES TSH FT4on 62-14-1298Zjxn T4 [Mass/Vol]1.07 ng/dLNormal0.61-1.60Premier HealthComment on above:Performed By: #### THYR ####[facility] ([address] VIRTSH4.17 uIU/mLNormal 0.49-4.67Premier HealthComment on above:Performed By: #### THYR ####[facility] ([address] VIRThyroid profile includes TSH FT4on 83-45-5570Xutq T4 [Mass/Vol]1.07 ng/dL 0.61 - 1.60 ng/dLAdena Pike Medical CenterInterpretation and review of laboratory resultsNormalNorthern Regional Hospital Qn4.17 m[IU]/[facility] HospitalCBC WITH AUTO DIFFERENTIALon 95-22-6963Gjrn form neutrophils/100 WBC (Bld)5 %NormalPremier HealthComcorewell health greenville hospital on above: Order Comment: See Springboard - Labs Due report.Result Comment: This is an appended report. These results have been appended to a previously preliminary verified report.Performed By: #### CBCA ####[facility] ([address] VIRCELLAVISION ATYPICAL LYMPHOCYTES RELATIVE PERCENT BY MANUAL COUNT2 %NormalProBaylor Scott & White Medical Center – Lake PointeComcorewell health greenville hospital on above:Order Comment: See Springboard - Labs Due report.Result Comment: This is an appended report. These results have been appended to a previously preliminary verified report.Performed By: #### CBCA ####[facility] AURORATrang [facility] ([facility])[address] [place] [address], [id number] VIRCELLAVISION DIFFERENTIAL TYPEMANUAL DIFFERENTIALNormalProTexas Vista Medical Center on above:Order Comment: See Springboard - Labs Due report.Result Comment: This is an appended report. These results have been appended to a previously preliminary verified report. Performed By: #### CBCA ####[facility] AURORATrang [facility] ([facility])[address] [place] [address], [id number] VIRCELLAVISION EOSINOPHILS ABSOLUTE COUNT (10*3/UL) BY MANUAL COUNT0.3 10*3/uLNormal0.0-0.4[facility] on above: Order Comment: See Springboard - Labs Due report.Result Comment: This is an appended report. These results have been appended to a previously preliminary verified report.Performed By: #### CBCA ####[facility] AURORATrang [facility] ([facility])[address] [place] [address], [id number] VIRCELLAVISION EOSINOPHILS PERCENT BY MANUAL COUNT2 %NormalProTexas Vista Medical Center on above:Order Comment: See Springboard - Labs Due report.Result Comment: This is an appended report. These results have been appended to a previously preliminary verified report. Performed By: #### CBCA ####[facility] AURORATrang [facility] ([facility])[address] [place] [address], [id number] VIRCELLAVISION LYMPHOCYTES ABSOLUTE COUNT (10*3/UL) BY MANUAL COUNT9.5 10*3/uLHigh1.0-3.5PSt. John of God Hospital on above: Order Comment: See Springboard - Labs Due report.Result Comment: This is an appended report. These results have been appended to a previously preliminary verified report.Performed By: #### CBCA ####[facility] ([facility])[address] [place] [address], [id number] VIRCELLAVISION LYMPHOCYTES RELATIVE PERCENT BY MANUAL COUNT57 %NormalBellevue Hospital on above: Order Comment: See Springboard - Labs Due report.Result Comment: This is an appended report. These results have been appended to a previously preliminary verified report.Performed By: #### CBCA ####[facility] AURORATrang [facility] ([facility])[address] [place] [address], [id number] VIRCELLAVISION METAMYELOCYTES RELATIVE PERCENT BY MANUAL COUNT1 %NormalBellevue Hospital on above:Order Comment: See Springboard - Labs Due report.Result Comment: This is an appended report. These results have been appended to a previously preliminary verified report.Performed By: #### CBCA ####[facility] AURORATrang [facility] ([facility])[address] [place] [address], [id number] VIRCELLAVISION MONOCYTES ABSOLUTE COUNT (10*3/UL) IN BLOOD BY MANUAL COUNT1.0 10*3/uLHigh0.0-0.9[facility] on above:Order Comment: See Springboard - Labs Due report.Result Comment: This is an appended report. These results have been appended to a previously preliminary verified report.Performed By: #### CBCA ####[facility] AURORATrang [facility] ([facility])[address] [place] [address] [id number] VIR CELLAVISION MONOCYTES RELATIVE PERCENT BY MANUAL COUNT6 %NormalBellevue Hospital on above:Order Comment: See Springboard - Labs Due report. Result Comment: This is an appended report. These results have been appended to a previously preliminary verified report.Performed By: #### CBCA ####[facility] AURORATrang [facility] ([facility])[address] [place] [address], [id number] VIR CELLAVISION NEUTROPHILS ABSOLUTE COUNT BY MANUAL COUNT5.2 10*3/uLNormal1.5-6.6 [facility] on above:Order Comment: See Springboard - Labs Due report.Result Comment: This is an appended report. These results have been appended to a previously preliminary verified report.Performed By: #### CBCA ####[facility] ([facility])[address], [id number] VIRCELLAVISION NEUTROPHILS RELATIVE PERCENT BY MANUAL COUNT27 %NormalBellevue [facility] on above:Order Comment: See Springboard - Labs Due report.Result Comment: This is an appended report. These results have been appended to a previously preliminary verified report.Performed By: #### CBCA ####[facility] ([facility])[address] [place] [address].[place], [id number] VIRCELLAVISION NUCLEATED RED BLOOD CELLS IN BLOOD BY LIGHT NGJBHNZRON1Ayzhyk [facility] on above:Order Comment: See Springboard - Labs Due report.Result Comment: This is an appended report. These results have been appended to a previously preliminary verified report.Performed By: #### CBCA ####[facility] ([address], [id number] VIRErythrocyte distribution width (RBC) [Ratio]19.9 %High11.5-15[facility] on above:Order Comment: See Springboard - Labs Due report.Performed By: #### CBCA ####[facility] ([address], [id number] VIRHematocrit (Bld) [Volume fraction]40.4 % Pzsmdz22-19ClpUvszrrBellevue Hospital on above:Order Comment: See Springboard - Labs Due report.Performed By: #### CBCA ####[facility] ([facility])[address] [place], [place] [address]E.[place], [id number] VIRHemoglobin (Bld) [Mass/Vol]13.2 g/vTHcbayb36-83QuxHmyxqwBellevue Hospital on above:Order Comment: See Springboard - Labs Due report.Performed By: #### CBCA ####[facility] ([address], [id number] VIRMCH (RBC) [Entitic mass]31.1 zbTtkyyc82-05IoeBwuvdaPremier HealthComcorewell health greenville hospital on above: Order Comment: See Springboard - Labs Due report.Performed By: #### CBCA ####[facility] ([facility])[address] [place] [address] AVE.[place], [id number] VIRMCHC (RBC) [Mass/Vol]32.7 g/tHGwqvvm65-65VbjOnxmpyPremier HealthComcorewell health greenville hospital on above:Order Comment: See Springboard - Labs Due report.Performed By: #### CBCA ####[facility] ([facility])[address] [place] [address] AVE.[place], [id number] VIRMCV (RBC) [Entitic vol]95 kSPihldy24-121GihSkfzruPremier HealthComcorewell health greenville hospital on above:Order Comment: See Springboard - Labs Due report.Performed By: #### CBCA ####[facility] ([address], [id number] VIRPlatelet mean volume (Bld) [Entitic vol]9.9 fLNormal7-12[facility] HospitalComcorewell health greenville hospital on above:Order Comment: See Springboard - Labs Due report. Performed By: #### CBCA ####[facility] ([address], [id number] VIRPlatelets (Bld) [#/Vol]321 10*3/eHOuqbcn583-379 [facility] on above:Order Comment: See Springboard - Labs Due report.Performed By: #### CBCA ####[facility] ([address], [id number] VIRRBC COUNT4.24 X10E12/LNormal4.1-5.7 [facility] on above:Order Comment: See Springboard - Labs Due report.Performed By: #### CBCA ####[facility] ([address], [id number] VIRWBC (Bld) [#/Vol]16.2 10*3/uLHigh 4-11Premier HealthComment on above:Order Comment: See Springboard - Labs Due report.Performed By: #### CBCA ####[facility] ([facility])[address] [place] [address] AVE.[place], [id number] VIRCBC auto differentialon 11-09-2024 Band form neutrophils/100 WBC (Bld)5 %[facility] Medical CenterComment on above: This is an appended report. These results have been appended to a previously preliminary verified report.Differential cell count method Nom (Bld)MANUAL DIFFERENTIALAdena Pike Medical CenterComment on above:This is an appended report. These results have been appended to a previously preliminary verified report. Eosinophils (Bld) [#/Vol]0.3 10*3/uL0.0 - 0.4 10*3/uLFairfield Medical Center System Comment on above:This is an appended report. These results have been appended to a previously preliminary verified report.Eosinophils/100 WBC (Bld)2 %[facility] Medical CenterComment on above:This is an appended report. These results have been appended to a previously preliminary verified report.Erythrocyte distribution width (RBC) [Ratio]19.9 %High11.5 - 15 %[facility] Hematocrit (Bld) [Volume fraction]40.4 %39 - 50 %[facility] Hemoglobin (Bld) [Mass/Vol]13.2 g/dL13 - 17 g/dLAdena Pike Medical Center Interpretation and review of laboratory resultsAbnormalAdena [facility] Medical Center Lymphocytes (Bld) [#/Vol]9.5 10*3/uLHigh1.0 - 3.5 10*3/uLFairfield Medical Center System Comment on above:This is an appended report. These results have been appended to a previously preliminary verified report.MCH (RBC) [Entitic mass]31.1 pg27 - 34 [facility] MiamisburgMCHC (RBC) [Mass/Vol]32.7 g/dL32 - 36 g/dLAdena Pike Medical CenterMCV (RBC) [Entitic vol]95 fL80 - 100 [facility] Metamyelocytes/100 WBC (Bld)1 %[facility] Medical CenterComment on above:This is an appended report. These results have been appended to a previously preliminary verified report.Monocytes (Bld) [#/Vol]1 10*3/uLHigh0.0 - 0.9 10*3/[facility] RegionComment on above:This is an appended report. These results have been appended to a previously preliminary verified report.Monocytes/100 WBC (Bld)6 %[facility] Medical CenterComment on above:This is an appended report. These results have been appended to a previously preliminary verified report. Neutrophils (Bld) [#/Vol]5.2 10*3/uL1.5 - 6.6 10*3/[facility] Comment on above:This is an appended report. These results have been appended to a previously preliminary verified report.Neutrophils/100 WBC (Bld)27 %[facility] Medical CenterComment on above:This is an appended report. These results have been appended to a previously preliminary verified report.Nucleated RBC/100 WBC (Bld) [Ratio]1 %[facility] Medical CenterComment on above:This is an appended report. These results have been appended to a previously preliminary verified re port.Platelet mean volume (Bld) [Entitic vol]9.9 fL7 - 12 [facility] Psychiatric CenterPlatelets (Bld) [#/Vol]321 10*3/[facility] RegionRBC (Bld) [#/Vol] 4.24 10*6/[facility] RegionVariant lymphocytes/100 WBC (Bld)57 % [facility] Medical CenterComment on above:This is an appended report. These results have been appended to a previously preliminary verified report.Variant lymphocytes/100 WBC (Bld)2 %[facility] Medical CenterComcorewell health greenville hospital on above:This is an appended report. These results have been appended to a previously preliminary verified report.WBC LM Ql (Sput)16.2HBarix Clinics of PennsylvaniaCOMPREHENSIVE METABOLIC PANELon 79-04-1537Znzwyxb [Mass/Vol]3.7 g/dLNormal 3.2-5.3PSumma Health Barberton CampusComment on above:Order Comment: See Springboard - Labs Due reportPerformed By: #### CMP ####[facility] ([facility] [place] [address] VIRALP [Catalytic activity/Vol]93 U/L Yrgjah81-178BieRdzjpoBaylor Scott & White Medical Center – Lake PointeComment on above:Order Comment: See Springboard - Labs Due reportPerformed By: #### CMP ####[facility] ([facility])[address] [place], [place] [address] [place] [address] VIRALT [Catalytic activity/Vol]38 U/LNormal<=40ProBaylor Scott & White Medical Center – Lake PointeComment on above:Order Comment: See Springboard - Labs Due reportPerformed By: #### CMP ####[facility] ([facility])[address] [place], [place] [address] [place] [address] VIRAnion gap [Moles/Vol]14 mmol/LNormal5-15ProBaylor Scott & White Medical Center – Lake PointeComment on above:Order Comment: See Springboard - Labs Due reportPerformed By: #### CMP ####[facility] ([address] [place] [address] VIRAST [Catalytic activity/Vol]36 U/LNormal<=41ProBaylor Scott & White Medical Center – Lake PointeComment on above:Order Comment: See Springboard - Labs Due reportPerformed By: #### CMP ####[facility] ([address], [place] [address] VIRBilirubin [Mass/Vol]0.6 mg/dLNormal0.3-1.2PSumma Health Barberton Campus Comment on above:Order Comment: See Springboard - Labs Due reportPerformed By: #### CMP ####[facility] ([facility])[address] [place], [place] [address].[facility] [address] VIRCalcium [Mass/Vol]9.5 mg/dLNormal8.5-10.5PSumma Health Barberton CampusComment on above:Order Comment: See Springboard - Labs Due reportPerformed By: #### CMP ####[facility] ([facility])[address] [place] [address] [place] [address] VIRChloride [Moles/Vol]97 mmol/XOja48-800 Premier HealthComcorewell health [facility] hospital on above:Order Comment: See Springboard - Labs Due reportPerformed By: #### CMP ####[facility] ([facility])[address] [place] [address] [place] [address] VIRCO2 [Moles/Vol]25 mmol/EPduezv02-74 Premier HealthComcorewell health green[facility] hospital on above:Order Comment: See Springboard - Labs Due reportPerformed By: #### CMP ####[facility] ([address] [place] [address] VIRCreatinine [Mass/Vol]0.90 mg/dL Normal0.70-1.20Premier HealthComcorewell health greenville hospital on above:Order Comment: See Springboard - Labs Due reportResult Comment: METHOD TRACEABLE TO IDMS STANDARD Performed By: #### CMP ####[facility] ([facility])[address] [place] [address] [place] [address] VIREGFR (CKD-EPI) NON-RACE DEPENDENT>^90Normal>=60 [facility] on above:Order Comment: See Springboard - Labs Due reportResult Comment: eGFR not reported due to non-numeric value for Creatinine.Reported eGFR is based ontheCKD-EPI 2020 equation that doesnot use a race coefficient.Performed By: #### CMP ####[facility] ([facility])[address] [place] [address] [place] [address] VIRGlucose [Mass/Vol]166 mg/dLHigh 65-99ProBaylor Scott & White Medical Center – Lake PointeComcorewell health greenville hospital on above:Order Comment: See Springboard - Labs Due reportPerformed By: #### CMP ####[facility] ([facility])[address] [place] [address] [place] [address] VIRPotassium [Moles/Vol]4.3 mmol/L Normal3.5-5.0ProMedica Burdett HospitalComment on above:Order Comment: See Springboard - Labs Due reportPerformed By: #### CMP ####[facility] ([facility])[address] [place] [address] [place] [address] VIRProtein [Mass/Vol]6.7 g/dLNormal6.0-8.0ProBaylor Scott & White Medical Center – Lake PointeComment on above:Order Comment: See Springboard - Labs Due reportPerformed By: #### CMP ####[facility] ([facility])[address] [place] [address] [place] [address] VIRSodium [Moles/Vol]136 mmol/DCvlods465-298HhjFwyvne Fremont HospitalComment on above: Order Comment: See Springboard - Labs Due reportPerformed By: #### CMP ####[facility] ([facility])[address] [place] [address].[place], [place] [address] VIRUrea nitrogen [Mass/Vol]16 mg/dLNormal5-27[facility] Comment on above:Order Comment: See Springboard - Labs Due reportPerformed By: #### CMP ####[facility] ([facility])[address] [place] [address] VIRComprehensive metabolic panelon 61-32-4690Ozkxtgm [Mass/Vol]3.7 g/dL3.2 - 5.3 g/dLProMedica Health SystemALP [Catalytic activity/Vol]93 U/L39 - 130 U/LProMedica Health SystemALT No additional P-5'-P [Catalytic activity/Vol]38 U/LNINF - 40 U/LProMedica Health SystemAnion gap [Moles/Vol]14 mmol/L5 - 15 mmol/LProMedica Health SystemAST [Catalytic activity/Vol]36 U/LNINF - 41 U/LProMedica Health SystemBilirubin [Mass/Vol]0.6 mg/dL0.3 - 1.2 mg/dLProMedica Health SystemCalcium [Mass/Vol]9.5 mg/dL8.5 - 10.5 mg/dLProMedica Health SystemChloride [Moles/Vol]97 mmol/LLow98 - 109 mmol/L [facility] Medical CenterCO2 [Moles/Vol]25 mmol/L22 - 32 mmol/LProMedica [facility] SystemCreatinine [Mass/Vol]0.9 mg/dL0.70 - 1.20 mg/dLAdena Pike Medical Center Comment on above:METHOD TRACEABLE TO IDMS STANDARDEGFR Non-Race Dependent- PINF [facility] Medical CenterComment on above:eGFR not reported due to non-numeric value for Creatinine. Reported eGFR is based on the CKD-EPI 2020 equation that does not use a race coefficient. Glucose [Mass/Vol]166 mg/xIYxne67 - 99 mg/dLAdena Pike Medical Center Interpretation and review of laboratory resultsAbnoSloop Memorial Hospital Potassium [Moles/Vol]4.3 mmol/L3.5 - 5.0 mmol/[facility] HealthoMedcrestwood medical center Health SystemProtein [Mass/Vol]6.7 g/dL6.0 - 8.0 g/dLAtrium Health Carolinas Medical Centerodium [Moles/Vol]136 mmol/L134 - 146 mmol/[facility] SystemUrea nitrogen [Mass/Vol]16 mg/dL5 - 27 mg/dLGeisinger-Lewistown HospitalTHYROID PROFILE INCLUDES TSH FT4on 54-92-1067Cpkf T4 [Mass/Vol]0.93 ng/dLNormal0.61-1.60Premier HealthComment on above:Performed By: #### THYR ####[facility] [place] [address] VIRTSH5.03 uIU/mLHigh 0.49-4.67ProBaylor Scott & White Medical Center – Lake PointeComment on above:Performed By: #### THYR ####[facility]ENTERA [facility] ([address] VIRThyroid profile includes TSH FT4on 96-61-0432Zjkj T4 [Mass/Vol]0.93 ng/dL 0.61 - 1.60 ng/dLAdena Pike Medical CenterInterpretation and review of laboratory resultsAbnoSloop Memorial HospitalTS Qn5.03 m[IU]/[facility]au[facility]osaCB WITH AUTO DIFFERENTIALon [id number] ATYPICAL LYMPHOCYTES RELATIVE PERCENT BY MANUAL COUNT17 %[facility] – JacksonComcorewell health greenville hospital on above:Order Comment: See Springboard - Labs Due report. Performed By: #### CBCA ####[facility] ([facility])[address] [place] [address] AV.[place], [id number] VIRCELLAVISION DIFFERENTIAL TYPECELLAVISION DIFFERENTIALNormalPremier HealthComment on above:Order Comment: See Springboard - Labs Due report.Performed By: #### CBCA ####[facility] ([address] [id number] VIRCELLAVISION ELLIPTOCYTES IN BLOOD BY LIGHT MICROSCOPY1+[facility] Comment on above:Order Comment: See Springboard - Labs Due report.Performed By: #### CBCA ####[facility] ([address], [id number] VIRCELLAVISION HYPOCHROMIA IN BLOOD BY LIGHT MICROSCOPY1+ [facility] – JacksonComment on above:Order Comment: See Springboard - Labs Due report.Performed By: #### CBCA ####[facility] ([address] [id number] VIRCELLAVISION LYMPHOCYTES ABSOLUTE COUNT (10*3/UL) BY MANUAL COUNT6.0 10*3/uLHigh1.0-3.5PTerrebonne General Medical Centerica Plumas District HospitalComcorewell health greenville hospital on above:Order Comment: See Springboard - Labs Due report. Performed By: #### CBCA ####[facility] ([address] [id number] VIRCELLAVISION LYMPHOCYTES RELATIVE PERCENT BY MANUAL COUNT18 %[facility] – JacksonComcorewell health greenville hospital on above:Order Comment: See Springboard - Labs Due report.Performed By: #### CBCA ####[facility] ([address], [id number] VIRCELLAVISION MONOCYTES ABSOLUTE COUNT (10*3/UL) IN BLOOD BY MANUAL COUNT2.1 10*3/uLHigh 0.0-0.9[facility] on above:Order Comment: See Springboard - Labs Due report.Performed By: #### CBCA ####[facility] ([address], [id number] VIRCELLAVISION MONOCYTES RELATIVE PERCENT BY MANUAL COUNT13 %NormalProTexas Vista Medical Center on above:Order Comment: See Springboard - Labs Due report.Performed By: #### CBCA ####[facility] ([address], [id number] VIRCELLAVISION MYELOCYTE RELATIVE PERCENT BY MANUAL COUNT1 %[facility] on above:Order Comment: See Springboard - Labs Due report.Performed By: #### CBCA ####[facility] ([address], [id number] VIRCELLAVISION NEUTROPHILS ABSOLUTE COUNT BY MANUAL COUNT8.5 10*3/uLHigh1.5-6.6[facility] on above: Order Comment: See Springboard - Labs Due report.Performed By: #### CBCA ####[facility] ([address], [id number] VIRCELLAVISION NEUTROPHILS RELATIVE PERCENT BY MANUAL COUNT51 %NormalProTexas Vista Medical Center on above:Order Comment: See Springboard - Labs Due report.Performed By: #### CBCA ####[facility] ([address], [id number] VIRCELLAVISION NUCLEATED RED BLOOD CELLS IN BLOOD BY LIGHT GDMKYBWUYU3DxuzmwPvnCpjnnzBellevue Hospital on above:Order Comment: See Springboard - Labs Due report.Performed By: #### CBCA ####[facility] ([address], [id number] VIRErythrocyte distribution width (RBC) [Ratio]20.9 %High11.5-15Premier HealthComcorewell health greenville hospital on above:Order Comment: See Springboard - Labs Due report.Performed By: #### CBCA ####[facility] ([address], [id number] VIRHematocrit (Bld) [Volume fraction]41.6 % Cihirh59-31WrbXasvifBaylor Scott & White Medical Center – Lake PointeComcorewell health greenville hospital on above:Order Comment: See Springboard - Labs Due report.Performed By: #### CBCA ####[facility] ([address], [id number] VIRHemoglobin (Bld) [Mass/Vol]13.9 g/nYOavwzt70-72UywXlbysqBaylor Scott & White Medical Center – Lake PointeComcorewell health greenville hospital on above:Order Comment: See Springboard - Labs Due report.Performed By: #### CBCA ####[facility] ([address], [id number] VIRMCH (RBC) [Entitic mass]31.5 ouDpmkyq60-30BgiVjutbrPremier HealthComcorewell health greenville hospital on above: Order Comment: See Springboard - Labs Due report.Performed By: #### CBCA ####[facility] ([address], [id number] VIRMCHC (RBC) [Mass/Vol]33.4 g/kVFbfiln69-11XsgQcffnwBaylor Scott & White Medical Center – Lake PointeComcorewell health greenville hospital on above:Order Comment: See Springboard - Labs Due report.Performed By: #### CBCA ####[facility] ([address], [id number] VIRMCV (RBC) [Entitic vol]94 kYTtropg02-669LklHyzxut Fremont HospitalComcorewell health greenville hospital on above:Order Comment: See Springboard - Labs Due report.Performed By: #### CBCA ####[facility] ([address], [id number] VIRPlatelet mean volume (Bld) [Entitic vol]9.8 fLNormal7-12PSumma Health Barberton CampusComment on above:Order Comment: See Springboard - Labs Due report. Performed By: #### CBCA ####[facility] ([address], [id number] VIRPlatelets (Bld) [#/Vol]365 10*3/uPBaofth275-203 Premier HealthComment on above:Order Comment: See Springboard - Labs Due report.Performed By: #### CBCA ####[facility] ([address], [id number] VIRRBC COUNT4.40 X10E12/LNormal4.1-5.7 Premier HealthComment on above:Order Comment: See Springboard - Labs Due report.Performed By: #### CBCA ####[facility] ([address], [id number] VIRWBC (Bld) [#/Vol]16.7 10*3/uLHigh 4-11Premier HealthComcorewell health greenville hospital on above:Order Comment: See Springboard - Labs Due report.Performed By: #### CBCA ####[facility] ([address], [id number] VIRCOMPREHENSIVE METABOLIC PANELon 88-90-4143Opukkpl [Mass/Vol]3.7 g/dLNormal3.2-5.3PSumma Health Barber[facility] Campus Comment on above:Order Comment: See Springboard - Labs Due reportPerformed By: #### CMP ####[facility] ([facility])[address] [place], [place] [address]E.[place] [address] VIRALP [Catalytic activity/Vol]92 U/WJnuoti45-783GbhHjendaPremier HealthComment on above:Order Comment: See Springboard - Labs Due reportPerformed By: #### CMP ####[facility] ([facility] [address] [address] VIRALT [Catalytic activity/Vol]39 U/LNormal<=40 Premier HealthComment on above:Order Comment: See Springboard - Labs Due reportPerformed By: #### CMP ####[facility] ([place] [address] [address] VIRAnion gap [Moles/Vol]6 mmol/LNormal 5-15ProBaylor Scott & White Medical Center – Lake PointeComment on above:Order Comment: See Springboard - Labs Due reportPerformed By: #### CMP ####[facility] ([address] [place] [address] VIRAST [Catalytic activity/Vol]47 U/L High<=41ProBaylor Scott & White Medical Center – Lake PointeComment on above:Order Comment: See Springboard - Labs Due reportPerformed By: #### CMP ####[facility] ([address] [address] VIRBilirubin [Mass/Vol]0.4 mg/dLNormal0.3-1.2PSumma Health Barberton CampusComment on above:Order Comment: See Springboard - Labs Due reportPerformed By: #### CMP ####[facility] ([address] [address] VIRCalcium [Mass/Vol]9.1 mg/dLNormal8.5-10.5PSumma Health Barberton CampusComment on above: Order Comment: See Springboard - Labs Due reportPerformed By: #### CMP ####[facility] ([address], [place] [address] VIRChloride [Moles/Vol]101 mmol/ZLrwduh19-205VhfGmebnaBaylor Scott & White Medical Center – Lake Pointe Comment on above:Order Comment: See Springboard - Labs Due reportPerformed By: #### CMP ####[facility] ([address] [place] [address] VIRCO2 [Moles/Vol]27 mmol/GJwtmpv81-19DvdUfwhle Plumas District HospitalComment on above:Order Comment: See Springboard - Labs Due report Performed By: #### CMP ####[facility] ([address] [place] [address] VIRCreatinine [Mass/Vol]0.93 mg/dLNormal0.70-1.20 Premier HealthComment on above:Order Comment: See Springboard - Labs Due reportResult Comment: METHOD TRACEABLE TO IDMS STANDARDPerformed By: #### CMP ####[facility] ([address] [place] [address] VIREGFR (CKD-EPI) NON-RACE DEPENDENT>^90Normal>=60ProBaylor Scott & White Medical Center – Lake PointeComcorewell health greenville hospital on above:Order Comment: See Springboard - Labs Due reportResult Comment: eGFR not reported due to non-numeric value for Creatinine.Reported eGFR is based ontheCKD-EPI 1 equation that doesnot use a race coefficient. Performed By: #### CMP ####[facility] ([address] [place] [address] VIRGlucose [Mass/Vol]167 mg/vHIbjm10-14LxvMbdapbPremier HealthComment on above:Order Comment: See Springboard - Labs Due reportPerformed By: #### CMP ####[facility] ([address] [place] [address] VIRPotassium [Moles/Vol]4.7 mmol/LNormal3.5-5.0 Premier HealthComment on above:Order Comment: See Springboard - Labs Due reportPerformed By: #### CMP ####[facility] ([address] [place] [address] VIRProtein [Mass/Vol]7.0 g/dLNormal 6.0-8.0Premier HealthComment on above:Order Comment: See Springboard - Labs Due reportPerformed By: #### CMP ####[facility] ([facility])[address] [place] [address] VIRSodium [Moles/Vol]134 mmol/LNormal 134-146ProBaylor Scott & White Medical Center – Lake PointeComment on above:Order Comment: See Springboard - Labs Due reportPerformed By: #### CMP ####[facility] ([facility] CENTER)[address] [place] [address] VIRUrea nitrogen [Mass/Vol]13 mg/dL Normal5-27ProBaylor Scott & White Medical Center – Lake PointeComment on above:Order Comment: See Springboard - Labs Due reportPerformed By: #### CMP ####[facility] ([facility])[address] [place] [address] VIRComprehensive metabolic panelon [id number] [Mass/Vol]3.7 g/dL3.2 - 5.3 g/dLProBryan Whitfield Memorial Hospital Health SystemALP [Catalytic activity/Vol]92 U/L39 - 130 U/[facility] Campusica Health SystemALT No additional P-5'-P [Catalytic activity/Vol]39 U/LNINF - 40 U/L [facility] SystemAnion gap [Moles/Vol]6 mmol/L5 - 15 mmol/[facility] Health SystemAST [Catalytic activity/Vol]47 U/LHighNINF - 41 U/LProMedica Health SystemBilirubin [Mass/Vol]0.4 mg/dL0.3 - 1.2 mg/dLProMedica Health SystemCalcium [Mass/Vol]9.1 mg/dL8.5 - 10.5 mg/dLProMercer County Community Hospitalca Health SystemChloride [Moles/Vol] 101 mmol/L98 - 109 mmol/LProMedica Health SystemCO2 [Moles/Vol]27 mmol/L22 - 32 mmol/[facility] Campusica Health SystemCreatinine [Mass/Vol]0.93 mg/dL0.70 - 1.20 mg/dL [facility]ike Medical CenterComment on above:METHOD TRACEABLE TO IDMS STANDARDEGFR Non-Race Dependent- Ballad HealthComment on above:eGFR not reported due to non-numeric value for Creatinine. Reported eGFR is based on the CKD-EPI 2020 equation that does not use a race coefficient. Glucose [Mass/Vol]167 mg/xOIdxw86 - 99 mg/dLAdena Pike Medical Center Interpretation and review of laboratory resultsAbnormMercy Health Fairfield Hospital Potassium [Moles/Vol]4.7 mmol/L3.5 - 5.0 mmol/[facility] Health SystemProtein [Mass/Vol]7 g/dL6.0 - 8.0 g/dLProWVUMedicine Harrison Community Hospitalodium [Moles/Vol]134 mmol/L134 - 146 mmol/[facility] SystemUrea nitrogen [Mass/Vol]13 mg/dL5 - 27 mg/dLGeisinger-Lewistown HospitalTHYROID PROFILE INCLUDES TSH FT4on 58-30-9055Dgyv T4 [Mass/Vol]0.96 ng/dLNormal0.61-1.60Premier HealthComment on above:Performed By: #### THYR ####[facility] ([address] VIRTSH4.29 uIU/mLNormal 0.49-4.67ProBaylor Scott & White Medical Center – Lake PointeComment on above:Performed By: #### THYR ####[facility] ([address] VIRThyroid profile includes TSH FT4on 48-53-5819Vgee T4 [Mass/Vol]0.96 ng/dL 0.61 - 1.60 ng/dLAdena Pike Medical CenterInterpretation and review of laboratory resultsNormMercy Health Fairfield HospitalTS Qn4.29 m[IU]/[facility] HospitalOffice Visiton [id number]-up [id number] Torsten Haywood 1955 M Date Provider Department Center 10/24/2024 [facility] Family History Problem Relation Age of Onset Coronary artery disease Father Coronary artery disease Brother Family Status - Relation Status Age at Mother Father Brother Level of Service:[address] [place] OFFICE/OUTPATIENT ESTABLISHED MOD MDM 30 [facility]CBC WITH AUTO DIFFERENTIALon 10-12-2024 CELLAVISION ATYPICAL LYMPHOCYTES RELATIVE PERCENT BY MANUAL COUNT2 %Normal [facility] on above:Order Comment: See Springboard - Labs Due report.Result Comment: This is an appended report. These results have been appended to a previously preliminary verified report.Performed By: #### CBCA ####[facility] ([facility])[address] [place], [place] [address] VIRCELLAVISION DIFFERENTIAL TYPEMANUAL DIFFERENTIALNormalBellevue Hospital on above:Order Comment: See Springboard - Labs Due report.Result Comment: This is an appended report. These results have been appended to a previously preliminary verified report.Performed By: #### CBCA ####[facility] AURORATrang [facility] ([address] [id number] VIR CELLAVISION EOSINOPHILS ABSOLUTE COUNT (10*3/UL) BY MANUAL COUNT0.3 10*3/uL Normal0.0-0.4[facility] on above:Order Comment: See Springboard - Labs Due report.Result Comment: This is an appended report. These results have been appended to a previously preliminary verified report.Performed By: #### CBCA ####[facility] AURORATrang [facility] ([address], [id number] VIRCELLAVISION EOSINOPHILS PERCENT BY MANUAL COUNT2 %Normal [facility] on above:Order Comment: See Springboard - Labs Due report.Result Comment: This is an appended report. These results have been appended to a previously preliminary verified report.Performed By: #### CBCA ####[facility] ([address] [id number] VIRCELLAVISION LYMPHOCYTES ABSOLUTE COUNT (10*3/UL) BY MANUAL COUNT5.8 10*3/uL High1.0-3.5ProMedica Burdett HospitalComment on above:Order Comment: See Springboard - Labs Due report.Result Comment: This is an appended report. These results have been appended to a previously preliminary verified report.Performed By: #### CBCA ####[facility] AURORAA [facility] ([facility])[address], [id number] VIRCELLAVISION LYMPHOCYTES RELATIVE PERCENT BY MANUAL COUNT 37 %NormalProBaylor Scott & White Medical Center – Lake PointeComcorewell health greenville hospital on above:Order Comment: See Springboard - Labs Due report.Result Comment: This is an appended report. These results have been appended to a previously preliminary verified report.Performed By: #### CBCA ####[facility] ([facility])[address] [place], [place] [address], [id number] VIRCELLAVISION METAMYELOCYTES RELATIVE PERCENT BY MANUAL COUNT1 %NormalBellevue Hospital on above:Order Comment: See Springboard - Labs Due report.Result Comment: This is an appended report. These results have been appended to a previously preliminary verified report.Performed By: #### CBCA ####[facility] AURORATrang [facility] ([facility])[address] [place], [place] [address]E.[place], [id number] VIRCELLAVISION MONOCYTES ABSOLUTE COUNT (10*3/UL) IN BLOOD BY MANUAL COUNT3.0 10*3/uLHigh0.0-0.9Premier HealthComcorewell health greenville hospital on above: Order Comment: See Springboard - Labs Due report.Result Comment: This is an appended report. These results have been appended to a previously preliminary verified report.Performed By: #### CBCA ####[facility]UR[facility]AA [facility] ([facility])[address], [id number] VIRCELLAVISION MONOCYTES RELATIVE PERCENT BY MANUAL COUNT20 %NormalProBaylor Scott & White Medical Center – Lake PointeComcorewell health greenville hospital on above: Order Comment: See Springboard - Labs Due report.Result Comment: This is an appended report. These results have been appended to a previously preliminary verified report.Performed By: #### CBCA ####[facility] AURORAA [facility] ([facility])[address] [facility] [address]REBOTHWE[facility] CENTERT, [id number] VIRCELLAVISION NEUTROPHILS ABSOLUTE COUNT BY MANUAL COUNT5.7 10*3/uLNormal1.5-6.6[facility] on above:Order Comment: See Springboard - Labs Due report.Result Comment: This is an appended report. These results have been appended to a previously prelimi nary verified report.Performed By: #### CBCA ####[facility] AUR[facility]ATrang [facility] ([facility])[address] [place] [address], [id number] VIRCELLAVISION NEUTROPHILS RELATIVE PERCENT BY MANUAL COUNT38 %NormalBellevue Hospital on above:Order Comment: See Springboard - Labs Due report.Result Comment: This is an appended report. These results have been appended to a previously preliminary verified report.Performed By: #### CBCA ####[facility] AUR[facility]ATrang [facility] ([facility])[address] [place] [address], [id number] VIRCELLAVISION NUCLEATED RED BLOOD CELLS IN BLOOD BY LIGHT [id number] Vista Medical Center on above:Order Comment: See Springboard - Labs Due report.Result Comment: This is an appended report. These results have been appended to a previously preliminary verified report.Performed By: #### CBCA ####[facility] AURORATrang [facility] ([facility])[address] [place] [address], [id number] VIRCELLAVISION POLYCHROMASIA IN BLOOD BY LIGHT MICROSCOPY1+NormalBellevue Hospital on above:Order Comment: See Springboard - Labs Due report.Result Comment: This is an appended report. These results have been appended to a previously preliminary verified report.Performed By: #### CBCA ####[facility] AURORATrang [facility] ([facility])[address] [place] [address], [id number] VIRCELLAVISION TARGET CELLS IN BLOOD BY LIGHT MICROSCOPY1+NormalBellevue Hospital on above:Order Comment: See Springboard - Labs Due report.Result Comment: This is an appended report. These results have been appended to a previously preliminary verified report.Performed By: #### CBCA ####[facility] ([address], [id number] VIRErythrocyte distribution width (RBC) [Ratio]21.6 %High 11.5-15ProBaylor Scott & White Medical Center – Lake PointeComment on above:Order Comment: See Springboard - Labs Due report.Performed By: #### CBCA ####[facility] ([address], [id number] VIRHematocrit (Bld) [Volume fraction]40.5 %Cygepl58-19EmhCjvogwBaylor Scott & White Medical Center – Lake PointeComment on above:Order Comment: See Springboard - Labs Due report.Performed By: #### CBCA ####[facility] ([address], [id number] VIRHemoglobin (Bld) [Mass/Vol]13.3 g/lOXfngah86-89VivGdtkjeBaylor Scott & White Medical Center – Lake PointeComment on above: Order Comment: See Springboard - Labs Due report.Performed By: #### CBCA ####[facility] ([address], [id number] VIRMCH (RBC) [Entitic mass]30.7 fdBgntci02-33CsmTgiwhjPremier HealthComment on above:Order Comment: See Springboard - Labs Due report.Performed By: #### CBCA ####[facility] ([address] [place] [address] VIRMCHC (RBC) [Mass/Vol]32.8 g/fMZkrbda17-59IbqRanhzt [facility] Comment on above:Order Comment: See Springboard - Labs Due report.Performed By: #### CBCA ####[facility] ([address], [id number] VIRMCV (RBC) [Entitic vol]94 eFCrntyl36-594SooOhdqdu [facility] HospitalComment on above:Order Comment: See Springboard - Labs Due report.Performed By: #### CBCA ####[facility] ([facility])[address] [place], [place] [address]E.[place], [id number] VIRPlatelet mean volume (Bld) [Entitic vol]9.7 fLNormal7-12PSumma Health Barberton CampusComment on above:Order Comment: See Springboard - Labs Due report.Performed By: #### CBCA ####[facility] ([address], [id number] VIRPlatelets (Bld) [#/Vol]387 10*3/wBJevtok638-623CcbWeskiuPremier HealthComment on above:Order Comment: See Springboard - Labs Due report.Performed By: #### CBCA ####[facility] ([facility])[address] [place] [address], [id number] VIRRBC COUNT 4.33 X10E12/LNormal4.1-5.7Premier HealthComment on above:Order Comment: See Springboard - Labs Due report.Performed By: #### CBCA ####[facility] ([facility])[address] [place] [address].[place], [id number] VIRWBC (Bld) [#/Vol]14.9 10*3/uLHigh4-11Premier HealthComcorewell health greenville hospital on above:Order Comment: See Springboard - Labs Due report.Performed By: #### CBCA ####[facility] ([address], [id number] VIRCBC auto differentialon 31-61-4394Tcnskzofhisc cell count method Nom (Bld)MANUAL DIFFERENTIALAdena Pike Medical CenterComment on above:This is an appended report. These results have been appended to a previously preliminary verified report. Eosinophils (Bld) [#/Vol]0.3 10*3/uL0.0 - 0.4 10*3/uLProMedica Health System Comment on above:This is an appended report. These results have been appended to a previously preliminary verified report.Eosinophils/100 WBC (Bld)2 %A[facility] Pike Medical CenterComment on above:This is an appended report. These results have been appended to a previously preliminary verified report.Erythrocyte distribution width (RBC) [Ratio]21.6 %High11.5 - 15 %[facility] Hematocrit (Bld) [Volume fraction]40.5 %39 - 50 %[facility] Hemoglobin (Bld) [Mass/Vol]13.3 g/dL13 - 17 g/dLAdena Pike Medical Center Interpretation and review of laboratory resultsAbnormMercy Health Fairfield Hospital Lymphocytes (Bld) [#/Vol]5.8 10*3/uLHigh1.0 - 3.5 10*3/[facility] Comment on above:This is an appended report. These results have been appended to a previously preliminary verified report.MCH (RBC) [Entitic mass]30.7 pg27 - 34 [facility] MiamisburgMCHC (RBC) [Mass/Vol]32.8 g/dL32 - 36 g/dLAdena Pike Medical CenterMCV (RBC) [Entitic vol]94 fL80 - 100 [facility] Metamyelocytes/100 WBC (Bld)1 %[facility]ike Medical CenterComment on above:This is an appended report. These results have been appended to a previously preliminary verified report.Monocytes (Bld) [#/Vol]3 10*3/uLHigh0.0 - 0.9 10*3/[facility] RegionComment on above:This is an appended report. These results have been appended to a previously preliminary verified report.Monocytes/100 WBC (Bld)20 %A[facility] Pike Medical CenterComment on above:This is an appended report. These results have been appended to a previously preliminary verified report. Neutrophils (Bld) [#/Vol]5.7 10*3/uL1.5 - 6.6 10*3/[facility] Comment on above:This is an appended report. These results have been appended to a previously preliminary verified report.Neutrophils/100 WBC (Bld)38 %Aden[facility] Pike Medical CenterComment on above:This is an appended report. These results have been appended to a previously preliminary verified report.Nucleated RBC/100 WBC (Bld) [Ratio]5 %ProMedica Health SystemComment on above:This is an appended report. These results have been appended to a previously preliminary verified re port.Platelet mean volume (Bld) [Entitic vol]9.7 fL7 - 12 fLPMercy Health Fairfield Hospital SystemPlatelets (Bld) [#/Vol]387 10*3/[facility] RegionPolychromasia LM Ql (Bld)1+[facility] SystemComment on above:This is an appended report. These results have been appended to a previously preliminary verified report.RBC (Bld) [#/Vol]4.33 10*6/[facility] RegionTarget cells LM Ql (Bld)1+ [facility] SystemComment on above:This is an appended report. These results have been appended to a previously preliminary verified report.Variant lymphocytes/100 WBC (Bld)37 %Aden[facility] Pike Medical CenterComment on above:This is an appended report. These results have been appended to a previously preliminary verified report.Variant lymphocytes/100 WBC (Bld)2 %[facility] Comment on above:This is an appended report. These results have been appended to a previously preliminary verified report.WBC LM Ql (Sput)14.9HighPsychiatric hospital, demolished 2001 SystemCOMPREHENSIVE METABOLIC PANELon 10-12-2024 Albumin [Mass/Vol]3.5 g/dLNormal3.2-5.3PSumma Health Barberton CampusComment on above:Order Comment: See Springboard - Labs Due reportPerformed By: #### CMP ####[facility] ([facility])[address] [place] [address] AVE.[place], [place] [address] VIRALP [Catalytic activity/Vol]87 U/ZKziwqk56-558VbaYqgfpdPremier Health Comment on above:Order Comment: See Springboard - Labs Due reportPerformed By: #### CMP ####[facility] ([facility])[address] [place] [address] VIRALT [Catalytic activity/Vol]30 U/LNormal<=40Premier HealthComment on above:Order Comment: See Springboard - Labs Due reportPerformed By: #### CMP ####[facility] ([facility] [place] [address] VIRAnion gap [Moles/Vol]9 mmol/LNormal5-15 Premier HealthComment on above:Order Comment: See Springboard - Labs Due reportPerformed By: #### CMP ####[facility] ([facility] [place] [address] VIRAST [Catalytic activity/Vol]34 U/L Normal<=41Premier HealthComment on above:Order Comment: See Springboard - Labs Due reportPerformed By: #### CMP ####[facility] ([address] [place] [address] VIRBilirubin [Mass/Vol]0.4 mg/dLNormal0.3-1.2PSumma Health Barberton CampusComment on above:Order Comment: See Springboard - Labs Due reportPerformed By: #### CMP ####[facility] ([facility])[address] [place], [place] [address] [place] [address] VIRCalcium [Mass/Vol]8.9 mg/dLNormal8.5-10.5PSumma Health Barberton CampusComment on above: Order Comment: See Springboard - Labs Due reportPerformed By: #### CMP ####[facility] ([address], [place] [address] VIRChloride [Moles/Vol]100 mmol/UDypmyy08-106TtxAoeiinPremier Health Comment on above:Order Comment: See Springboard - Labs Due reportPerformed By: #### CMP ####[facility] ([address] [place] [address] VIRCO2 [Moles/Vol]28 mmol/UKersjh23-10JdpPjgsfkSumma Health Barberton CampusComment on above:Order Comment: See Springboard - Labs Due report Performed By: #### CMP ####[facility] ([address] [place] [address] VIRCreatinine [Mass/Vol]0.88 mg/dLNormal0.70-1.20 Premier HealthComment on above:Order Comment: See Springboard - Labs Due reportResult Comment: METHOD TRACEABLE TO IDMS STANDARDPerformed By: #### CMP ####[facility] ([address] [place] [address] VIREGFR (CKD-EPI) NON-RACE DEPENDENT>^90Normal>=60ProBaylor Scott & White Medical Center – Lake PointeComment on above:Order Comment: See Springboard - Labs Due reportResult Comment: eGFR not reported due to non-numeric value for Creatinine.Reported eGFR is based ontheCKD-EPI 2020 equation that doesnot use a race coefficient. Performed By: #### CMP ####[facility] ([address] [place] [address] VIRGlucose [Mass/Vol]158 mg/lXNjst68-18LntMdravkBaylor Scott & White Medical Center – Lake PointeComment on above:Order Comment: See Springboard - Labs Due reportPerformed By: #### CMP ####[facility] ([address] [address] VIRPotassium [Moles/Vol]4.3 mmol/LNormal3.5-5.0 Premier HealthComment on above:Order Comment: See Springboard - Labs Due reportPerformed By: #### CMP ####[facility] ([address] [address] VIRProtein [Mass/Vol]6.6 g/dLNormal 6.0-8.0ProBaylor Scott & White Medical Center – Lake PointeComment on above:Order Comment: See Springboard - Labs Due reportPerformed By: #### CMP ####[facility] ([address] [place] [address] VIRSodium [Moles/Vol]137 mmol/LNormal 134-146ProBaylor Scott & White Medical Center – Lake PointeComment on above:Order Comment: See Springboard - Labs Due reportPerformed By: #### CMP ####[facility] ([facility])[address] [place] [address].[place] [address] VIRUrea nitrogen [Mass/Vol]12 mg/dL Normal5-27Premier HealthComment on above:Order Comment: See Springboard - Labs Due reportPerformed By: #### CMP ####[facility]UR[facility]AA [facility] ([facility])[address] [facility] [place] [address] VIRComprehensive metabolic panelon 14-27-6474Exmgsid [Mass/Vol]3.5 g/dL3.2 - 5.3 g/dLProBryan Whitfield Memorial Hospital Health SystemALP [Catalytic activity/Vol]87 U/L39 - 130 U/[facility] Health SystemALT No additional P-5'-P [Catalytic activity/Vol]30 U/LNINF - 40 U/L [facility] Medical CenterAnion gap [Moles/Vol]9 mmol/L5 - 15 mmol/LPrYuma District Hospital Health SystemAST [Catalytic activity/Vol]34 U/LNINF - 41 U/[facility] Health SystemBilirubin [Mass/Vol]0.4 mg/dL0.3 - 1.2 mg/dLFairfield Medical Center SystemCalcium [Mass/Vol]8.9 mg/dL8.5 - 10.5 mg/dLFairfield Medical Center SystemChloride [Moles/Vol] 100 mmol/L98 - 109 mmol/[facility] Health SystemCO2 [Moles/Vol]28 mmol/L22 - 32 mmol/[facility] SystemCreatinine [Mass/Vol]0.88 mg/dL0.70 - 1.20 mg/dL [facility] Medical CenterComment on above:METHOD TRACEABLE TO IDMS STANDARDEGFR Non-Race Dependent- Ballad HealthComment on above:eGFR not reported due to non-numeric value for Creatinine. Reported eGFR is based on the CKD-EPI 2020 equation that does not use a race coefficient. Glucose [Mass/Vol]158 mg/zHXljc43 - 99 mg/dLAdena Pike Medical Center Interpretation and review of laboratory resultsAbnormalAdena Pike Medical Center Potassium [Moles/Vol]4.3 mmol/L3.5 - 5.0 mmol/[facility] SystemProtein [Mass/Vol]6.6 g/dL6.0 - 8.0 g/dLAtrium Health Carolinas Medical Centerodium [Moles/Vol]137 mmol/L134 - 146 mmol/[facility] SystemUrea nitrogen [Mass/Vol]12 mg/dL5 - 27 mg/dLProBellevue HospitalProCleveland Clinic Avon Hospital SystemTHYROID PROFILE INCLUDES TSH FT4on 81-08-0359Bibd T4 [Mass/Vol]1.00 ng/dLNormal0.61-1.60Premier HealthComment on above:Performed By: #### THYR ####[facility] ([address] VIRTSH4.25 uIU/mLNormal 0.49-4.67Premier HealthComment on above:Performed By: #### THYR ####[facility] ([address], [id number] VIRThyroid profile includes TSH FT4on 23-65-4162Svgz T4 [Mass/Vol]1 ng/dL0.61 - 1.60 ng/dLAdena Pike Medical CenterInterpretation and review of laboratory resultsNormalNorthern Regional Hospital Qn4.25 m[IU]/[facility] HospitalCBC WITH AUTO DIFFERENTIALon 84-86-6657Gdhu form neutrophils/100 WBC (Bld)3 %NormalPremier HealthComcorewell health greenville hospital on above: Order Comment: See Springboard - Labs Due report.Result Comment: This is an appended report. These results have been appended to a previously preliminary verified report.Performed By: #### CBCA ####[address] [id number] VIRCELLAVISION ATYPICAL LYMPHOCYTES RELATIVE PERCENT BY MANUAL COUNT2 %NormalBellevue Hospital on above:Order Comment: See Springboard - Labs Due report.Result Comment: This is an appended report. These results have been appended to a previously preliminary verified report.Performed By: #### CBCA ####[facility] AURORATrang [facility] ([facility])[address] [place] [address], [id number] VIRCELLAVISION BASOPHILS ABSOLUTE COUNT (10*3/UL) BY MANUAL COUNT0.3 10*3/uLHigh0.0-0.2PSumma Health Barberton Campus Comment on above:Order Comment: See Springboard - Labs Due report.Result Comment: This is an appended report. These results have been appended to a previously preliminary verified report.Performed By: #### CBCA ####[facility] ([facility])[address] [place] [address], [id number] VIR CELLAVISION BASOPHILS RELATIVE PERCENT BY MANUAL COUNT2 %NormalPremier HealthComcorewell health greenville hospital on above:Order Comment: See Springboard - Labs Due report. Result Comment: This is an appended report. These results have been appended to a previously preliminary verified report.Performed By: #### CBCA ####[facility] ([facility])[address] [place] [address], [id number] VIR CELLAVISION DIFFERENTIAL TYPEMANUAL DIFFERENTIALNormalPremier Health Comment on above:Order Comment: See Springboard - Labs Due report.Result Comment: This is an appended report. These results have been appended to a previously preliminary verified report.Performed By: #### CBCA ####[facility] ([facility])[address] [place] [address], [id number] VIR CELLAVISION EOSINOPHILS ABSOLUTE COUNT (10*3/UL) BY MANUAL COUNT0.3 10*3/uL Normal0.0-0.4Premier HealthComment on above:Order Comment: See Springboard - Labs Due report.Result Comment: This is an appended report. These results have been appended to a previously preliminary verified report.Performed By: #### CBCA ####[facility] ([facility])[address] [place] [address] [id number] VIRCELLAVISION EOSINOPHILS PERCENT BY MANUAL COUNT2 %Normal Premier HealthComment on above:Order Comment: See Springboard - Labs Due report.Result Comment: This is an appended report. These results have been appended to a previously preliminary verified report.Performed By: #### CBCA ####[facility] AURORATrang [facility] ([facility])[address] [place] [address], [id number] VIRCELLAVISION LYMPHOCYTES ABSOLUTE COUNT (10*3/UL) BY MANUAL COUNT6.7 10*3/uL High1.0-3.5ProMedQueen of the Valley Medical Center on above:Order Comment: See Springboard - Labs Due report.Result Comment: This is an appended report. These results have been appended to a previously preliminary verified report.Performed By: #### CBCA ####[facility] AURORATrang [facility] ([address], [id number] VIRCELLAVISION LYMPHOCYTES RELATIVE PERCENT BY MANUAL COUNT 43 %NormalBellevue Hospital on above:Order Comment: See Springboard - Labs Due report.Result Comment: This is an appended report. These results have been appended to a previously preliminary verified report.Performed By: #### CBCA ####[facility]UR[facility]ATrang [facility] ([address], [id number] VIRCELLAVISION MONOCYTES ABSOLUTE COUNT (10*3/UL) IN BLOOD BY MANUAL COUNT1.5 10*3/uLHigh0.0-0.9ProTexas Vista Medical Center on above: Order Comment: See Springboard - Labs Due report.Result Comment: This is an appended report. These results have been appended to a previously preliminary verified report.Performed By: #### CBCA ####[facility] A[facility]rang [facility] ([facility])[address] [place] [address], [id number] VIRCELLAVISION MONOCYTES RELATIVE PERCENT BY MANUAL COUNT10 %NormalBellevue Hospital on above: Order Comment: See Springboard - Labs Due report.Result Comment: This is an appended report. These results have been appended to a previously preliminary verified report.Performed By: #### CBCA ####[facility] ([address], [id number] VIRCELLAVISION MYELOCYTE RELATIVE PERCENT BY MANUAL COUNT2 %NormalBellevue Hospital on above:Order Comment: See Springboard - Labs Due report.Result Comment: This is an appended report. These results have been appended to a previously preliminary verified report.Performed By: #### CBCA ####[address], [id number] VIRCELLAVISION NEUTROPHILS ABSOLUTE COUNT BY MANUAL COUNT5.7 10*3/uLNormal1.5-6.6[facility] on above: Order Comment: See Springboard - Labs Due report.Result Comment: This is an appended report. These results have been appended to a previously preliminary verified report.Performed By: #### CBCA ####[facility] AURORATrang [address], [id number] VIRCELLAVISION NEUTROPHILS RELATIVE PERCENT BY MANUAL COUNT36 %[facility] on above: Order Comment: See Springboard - Labs Due report.Result Comment: This is an appended report. These results have been appended to a previously preliminary verified report.Performed By: #### CBCA ####[facility] AUR[facility]ATrang [facility] ([address], [id number] VIRCELLAVISION NUCLEATED RED BLOOD CELLS IN BLOOD BY LIGHT YVEKEYEXQJ8PkcjjqZflDsbwtkTexas Vista Medical Center on above:Order Comment: See Springboard - Labs Due report.Result Comment: This is an appended report. These results have been appended to a previously preliminary verified report.Performed By: #### CBCA ####[facility] AURORATrang [address], [id number] VIRCELLAVISION RBC MORPHOLOGYReviewed [facility] on above:Order Comment: See Springboard - Labs Due report.Result Comment: This is an appended report. These results have been appended to a previously preliminary verified report.Performed By: #### CBCA ####[facility] ([facility])[address] [place] [address] [place] [address] VIRErythrocyte distribution width (RBC) [Ratio]22.4 %High11.5-15[facility] on above:Order Comment: See Springboard - Labs Due report.Performed By: #### CBCA ####[facility] ([address], [id number] VIRHematocrit (Bld) [Volume fraction]41.4 % Xzounl56-66XhzQkrlxwBaylor Scott & White Medical Center – Lake PointeComcorewell health greenville hospital on above:Order Comment: See Springboard - Labs Due report.Performed By: #### CBCA ####[facility] ([address], [id number] VIRHemoglobin (Bld) [Mass/Vol]13.4 g/aLUnrknx36-17IguMherzmBellevue Hospital on above:Order Comment: See Springboard - Labs Due report.Performed By: #### CBCA ####[facility] ([address], [id number] VIRMCH (RBC) [Entitic mass]30.0 tbUwojps15-66PnkHmdxetBellevue Hospital on above: Order Comment: See Springboard - Labs Due report.Performed By: #### CBCA ####[facility] ([address], [id number] VIRMCHC (RBC) [Mass/Vol]32.3 g/pNUmwowc97-85RotRyzwgdPremier HealthComcorewell health greenville hospital on above:Order Comment: See Springboard - Labs Due report.Performed By: #### CBCA ####[facility] ([facility])[address] [place], [place] [address]E.[place], [id number] VIRMCV (RBC) [Entitic vol]93 hKEygtph40-466YpiIxcenx Fremont HospitalComcorewell health greenville hospital on above:Order Comment: See Springboard - Labs Due report.Performed By: #### CBCA ####[facility] ([facility])[address] [place] [address].[place], [id number] VIRPlatelet mean volume (Bld) [Entitic vol]10.0 fLNormal7-12[facility] on above:Order Comment: See Springboard - Labs Due report. Performed By: #### CBCA ####[facility] ([facility])[address] [place] [address].[place], [id number] VIRPlatelets (Bld) [#/Vol]392 10*3/yZJeufas571-257 Premier HealthComcorewell health greenville hospital on above:Order Comment: See Springboard - Labs Due report.Performed By: #### CBCA ####[facility] ([address], [id number] VIRRBC COUNT4.46 X10E12/LNormal4.1-5.7 Premier HealthComcorewell health greenville hospital on above:Order Comment: See Springboard - Labs Due report.Performed By: #### CBCA ####[facility] ([address], [id number] VIRWBC (Bld) [#/Vol]14.8 10*3/uLHigh 4-11Premier HealthComcorewell health greenville hospital on above:Order Comment: See Springboard - Labs Due report.Performed By: #### CBCA ####[facility] ([address], [id number] VIRCBC auto differentialon 09-28-2024 Band form neutrophils/100 WBC (Bld)3 %[facility] Medical CenterComment on above: This is an appended report. These results have been appended to a previously preliminary verified report.Basophils (Bld) [#/Vol]0.3 10*3/uLHigh0.0 - 0.2 10*3/uLAdena Pike Medical CenterComment on above:This is an appended report. These results have been appended to a previously preliminary verified report. Basophils/100 WBC (Bld)2 %[facility]ike Medical CenterComment on above:This is an appended report. These results have been appended to a previously preliminary verified report.Differential cell count method Nom (Bld)MANUAL DIFFERENTIAL [facility]ike Medical CenterComment on above:This is an appended report. These results have been appended to a previously preliminary verified report. Eosinophils (Bld) [#/Vol]0.3 10*3/uL0.0 - 0.4 10*3/uLAdena Pike Medical Center Comment on above:This is an appended report. These results have been appended to a previously preliminary verified report.Eosinophils/100 WBC (Bld)2 %[facility] Medical CenterComment on above:This is an appended report. These results have been appended to a previously preliminary verified report.Erythrocyte distribution width (RBC) [Ratio]22.4 %High11.5 - 15 %[facility] Hematocrit (Bld) [Volume fraction]41.4 %39 - 50 %[facility] Hemoglobin (Bld) [Mass/Vol]13.4 g/dL13 - 17 g/dLAdena Pike Medical Center Interpretation and review of laboratory resultsAbnormMercy Health Fairfield Hospital Lymphocytes (Bld) [#/Vol]6.7 10*3/uLHigh1.0 - 3.5 10*3/uLAdena Pike Medical Center Comment on above:This is an appended report. These results have been appended to a previously preliminary verified report.MCH (RBC) [Entitic mass]30 pg27 - 34 [facility] MiamisburgMCHC (RBC) [Mass/Vol]32.3 g/dL32 - 36 g/dLAdena Pike Medical CenterMCV (RBC) [Entitic vol]93 fL80 - 100 [facility] Monocytes (Bld) [#/Vol]1.5 10*3/uLHigh0.0 - 0.9 10*3/uLFairfield Medical Center System Comment on above:This is an appended report. These results have been appended to a previously preliminary verified report.Monocytes/100 WBC (Bld)10 %[facility] Medical CenterComment on above:This is an appended report. These results have been appended to a previously preliminary verified report.Myelocytes/100 WBC (Bld)2 %[facility] Medical CenterComment on above:This is an appended report. These results have been appended to a previously preliminary verified report. Neutrophils (Bld) [#/Vol]5.7 10*3/uL1.5 - 6.6 10*3/[facility] Comment on above:This is an appended report. These results have been appended to a previously preliminary verified report.Neutrophils/100 WBC (Bld)36 %[facility] Medical CenterComment on above:This is an appended report. These results have been appended to a previously preliminary verified report.Nucleated RBC/100 WBC (Bld) [Ratio]8 %[facility] Medical CenterComment on above:This is an appended report. These results have been appended to a previously preliminary verified re port.Platelet mean volume (Bld) [Entitic vol]10 fL7 - 12 [facility] Psychiatric CenterPlatelets (Bld) [#/Vol]392 10*3/[facility] SystemRBC (Bld) [#/Vol] 4.46 10*6/[facility] SystemRBC (Bld) [#/Vol][facility] HospitalComment on above:This is an appended report. These results have been appended to a previously preliminary verified report.Variant lymphocytes/100 WBC (Bld)43 %[facility] Medical CenterComment on above:This is an appended report. These results have been appended to a previously preliminary verified report. Variant lymphocytes/100 WBC (Bld)2 %[facility]ike Medical CenterComment on above:This is an appended report. These results have been appended to a previously preliminary verified report.WBC LM Ql (Sput)14.8HSSM Health St. Clare Hospital - BarabooCOMPREHENSIVE METABOLIC PANELon 44-02-3761Hyuszpa [Mass/Vol]3.4 g/dLNormal3.2-5.3PSumma Health Barberton CampusComcorewell health greenville hospital on above:Order Comment: See Springboard - Labs Due reportPerformed By: #### CMP ####[facility] H[facility]PITALEDICTUSTIN [facility] ([facility])[address] [place] [address] [address] VIRALP [Catalytic activity/Vol]96 U/WVcnxvq38-041MrbWbdcbbBaylor Scott & White Medical Center – Lake PointeComment on above:Order Comment: See Springboard - Labs Due reportPerformed By: #### CMP ####[facility] ([facility] [address], [place] [address] VIRALT [Catalytic activity/Vol]28 U/LNormal<=40[facility] Comment on above:Order Comment: See Springboard - Labs Due reportPerformed By: #### CMP ####[facility] ([facility])[address] [place], [place] [address] [place] [address] VIRAnion gap [Moles/Vol]7 mmol/LNormal5-15ProBaylor Scott & White Medical Center – Lake PointeComment on above:Order Comment: See Springboard - Labs Due reportPerformed By: #### CMP ####[facility] ([address] [address] VIRAST [Catalytic activity/Vol]31 U/LNormal<=41 ProMNaval Hospital OaklandComment on above:Order Comment: See Springboard - Labs Due reportPerformed By: #### CMP ####[facility] ([address] [address] VIRBilirubin [Mass/Vol]0.4 mg/dLNormal 0.3-1.2PSumma Health Barberton CampusComment on above:Order Comment: See Springboard - Labs Due reportPerformed By: #### CMP ####[facility] ([address] [address] VIRCalcium [Mass/Vol]9.0 mg/dLNormal 8.5-10.5PSumma Health Barberton CampusComment on above:Order Comment: See Springboard - Labs Due reportPerformed By: #### CMP ####[facility] ([facility])[address] [place], [place] [address]T [address].[place] [address] VIRChloride [Moles/Vol]100 mmol/HRajgly94-308VcyTuyvrzBaylor Scott & White Medical Center – Lake PointeComment on above: Order Comment: See Springboard - Labs Due reportPerformed By: #### CMP ####[facility] ([facility])[address] [facility] [address], [place] [address] VIRCO2 [Moles/Vol]28 mmol/QIuvlpl38-09CeyXsdtpzSumma Health Barberton CampusComment on above:Order Comment: See Springboard - Labs Due reportPerformed By: #### CMP ####[facility] ([facility])[address] [place] [address] AVE.[place], [place] [address] VIRCreatinine [Mass/Vol]0.89 mg/dLNormal0.70-1.20[facility] Comment on above:Order Comment: See Springboard - Labs Due reportResult Comment: METHOD TRACEABLE TO IDMS STANDARDPerformed By: #### CMP ####[facility] ([address] [place] [address] VIREGFR (CKD-EPI) NON-RACE DEPENDENT>^90Normal>=60ProBaylor Scott & White Medical Center – Lake PointeComment on above:Order Comment: See Springboard - Labs Due reportResult Comment: eGFR not reported due to non-numeric value for Creatinine.Reported eGFR is based ontheCKD-EPI 2020 equation that doesnot use a race coefficient.Performed By: #### CMP ####[facility] ([address], [place] [address] VIRGlucose [Mass/Vol]171 mg/hZTsmy90-59UbpRtqhhfBaylor Scott & White Medical Center – Lake PointeComment on above:Order Comment: See Springboard - Labs Due reportPerformed By: #### CMP ####[facility] ([address], [place] [address] VIRPotassium [Moles/Vol]4.4 mmol/LNormal3.5-5.0[facility] Comment on above:Order Comment: See Springboard - Labs Due reportPerformed By: #### CMP ####[facility] ([address] [place] [address] VIRProtein [Mass/Vol]6.8 g/dLNormal6.0-8.0Premier HealthComment on above:Order Comment: See Springboard - Labs Due reportPerformed By: #### CMP ####[facility] ([facility])[address] [place] [address] VIRSodium [Moles/Vol]135 mmol/DIkdfye013-243 ProMNaval Hospital OaklandComment on above:Order Comment: See Springboard - Labs Due reportPerformed By: #### CMP ####[facility] ([facility])[address] [place] [address] VIRUrea nitrogen [Mass/Vol]14 mg/dL Normal5-27ProBaylor Scott & White Medical Center – Lake PointeComment on above:Order Comment: See Springboard - Labs Due reportPerformed By: #### CMP ####[facility] ([facility])[address] [place] [address] VIRComprehensive metabolic panelon 56-96-0679Pxuodif [Mass/Vol]3.4 g/dL3.2 - 5.3 g/dLProMedica Health SystemALP [Catalytic activity/Vol]96 U/L39 - 130 U/LProMedica Health SystemALT No additional P-5'-P [Catalytic activity/Vol]28 U/LNINF - 40 U/L ProMedica Health SystemAnion gap [Moles/Vol]7 mmol/L5 - 15 mmol/LProMedica Health SystemAST [Catalytic activity/Vol]31 U/LNINF - 41 U/LProMedica Health SystemBilirubin [Mass/Vol]0.4 mg/dL0.3 - 1.2 mg/dLProMedica Health SystemCalcium [Mass/Vol]9 mg/dL8.5 - 10.5 mg/dLProMedica Health SystemChloride [Moles/Vol]100 mmol/L98 - 109 mmol/LProMedica Health SystemCO2 [Moles/Vol]28 mmol/L22 - 32 mmol/LProMedica Health SystemCreatinine [Mass/Vol]0.89 mg/dL0.70 - 1.20 mg/dL [facility]ike Medical CenterComment on above:METHOD TRACEABLE TO IDMS STANDARDEGFR Non-Race Dependent- Ballad HealthComment on above:eGFR not reported due to non-numeric value for Creatinine. Reported eGFR is based on the CKD-EPI 2020 equation that does not use a race coefficient. Glucose [Mass/Vol]171 mg/fBTjca60 - 99 mg/dLAdena Pike Medical Center Interpretation and review of laboratory resultsAbnormalAdena Pike Medical Center Potassium [Moles/Vol]4.4 mmol/L3.5 - 5.0 mmol/[facility] SystemProtein [Mass/Vol]6.8 g/dL6.0 - 8.0 g/dLAtrium Health Carolinas Medical Centerodium [Moles/Vol]135 mmol/L134 - 146 mmol/[facility] Community HospitalUrea nitrogen [Mass/Vol]14 mg/dL5 - 27 mg/dLGeisinger-Lewistown HospitalTHYROID PROFILE INCLUDES TSH FT4on [id number] T4 [Mass/Vol]0.99 ng/dLNormal0.61-1.60Premier HealthComment on above:Performed By: #### THYR ####[facility] ([place] [address] VIRTSH3.38 uIU/mLNormal 0.49-4.67Premier HealthComment on above:Performed By: #### THYR ####[address] VIRThyroid profile includes TSH FT4on 80-14-5229Uies T4 [Mass/Vol]0.99 ng/dL 0.61 - 1.60 ng/dLAdena Pike Medical CenterInterpretation and review of laboratory resultsNormalAdena Pike Medical CenterTS Qn3.38 m[IU]/[facility] HospitalCBC WITH AUTO DIFFERENTIALon 85-68-5015DHHTZNFGISL ATYPICAL LYMPHOCYTES RELATIVE PERCENT BY MANUAL COUNT1 %NormalPremier HealthComcorewell health greenville hospital on above:Order Comment: See Springboard - Labs Due report.Result Comment: This is an appended report. These results have been appended to a previously preliminary verified report.Performed By: #### CBCA ####[facility] ([facility])[address] [place] [address], [id number] VIR CELLAVISION DIFFERENTIAL TYPECELLAVISION DIFFERENTIALNormalBellevue Hospital on above:Order Comment: See Springboard - Labs Due report.Result Comment: This is an appended report. These results have been appended to a previously preliminary verified report.Performed By: #### CBCA ####[facility] AURORATrang [facility] ([facility])[address] [place] [address], [id number] VIR CELLAVISION EOSINOPHILS ABSOLUTE COUNT (10*3/UL) BY MANUAL COUNT0.2 10*3/uL Normal0.0-0.4[facility] on above:Order Comment: See Springboard - Labs Due report.Result Comment: This is an appended report. These results have been appended to a previously preliminary verified report.Performed By: #### CBCA ####[facility] ([facility])[address] [place] [address], [id number] VIRCELLAVISION EOSINOPHILS PERCENT BY MANUAL COUNT1 %Normal [facility] on above:Order Comment: See Springboard - Labs Due report.Result Comment: This is an appended report. These results have been appended to a previously preliminary verified report.Performed By: #### CBCA ####[facility] AUR[facility]ATrang [facility] ([facility])[address] [place] [address], [id number] VIRCELLAVISION LYMPHOCYTES ABSOLUTE COUNT (10*3/UL) BY MANUAL COUNT5.1 10*3/uL High1.0-3.5PSt. John of God Hospital on above:Order Comment: See Springboard - Labs Due report.Result Comment: This is an appended report. These results have been appended to a previously preliminary verified report.Performed By: #### CBCA ####[facility] ([facility])[address] [place] [address], [id number] VIRCELLAVISION LYMPHOCYTES RELATIVE PERCENT BY MANUAL COUNT 28 %NormalProTexas Vista Medical Center on above:Order Comment: See Springboard - Labs Due report.Result Comment: This is an appended report. These results have been appended to a previously preliminary verified report.Performed By: #### CBCA ####[facility] AURORATrang [facility] ([facility])[address] [place] [address], [id number] VIRCELLAVISION MONOCYTES ABSOLUTE COUNT (10*3/UL) IN BLOOD BY MANUAL COUNT2.7 10*3/uLHigh0.0-0.9ProTexas Vista Medical Center on above: Order Comment: See Springboard - Labs Due report.Result Comment: This is an appended report. These results have been appended to a previously preliminary verified report.Performed By: #### CBCA ####[facility] AURORATrang [facility] ([address] [id number] VIRCELLAVISION MONOCYTES RELATIVE PERCENT BY MANUAL COUNT16 %NormalBellevue Hospital on above: Order Comment: See Springboard - Labs Due report.Result Comment: This is an appended report. These results have been appended to a previously preliminary verified report.Performed By: #### CBCA ####[facility] AUR[facility]ATrang [facility] ([facility])[address] [place] [address], [id number] VIRCELLAVISION NEUTROPHILS ABSOLUTE COUNT BY MANUAL COUNT9.4 10*3/uLHigh1.5-6.6ProTexas Vista Medical Center on above:Order Comment: See Springboard - Labs Due report.Result Comment: This is an appended report. These results have been appended to a previously preliminary verified report.Performed By: #### CBCA ####[facility] ([facility])[address] [place] [address], [id number] VIRCELLAVISION NEUTROPHILS RELATIVE PERCENT BY MANUAL COUNT54 %NormalBellevue Hospital on above: Order Comment: See Springboard - Labs Due report.Result Comment: This is an appended report. These results have been appended to a previously preliminary verified report.Performed By: #### CBCA ####[facility] ([facility])[address] [facility] [address], [id number] VIRCELLAVISION NUCLEATED RED BLOOD CELLS IN BLOOD BY LIGHT CBZLSTBOYW9NjtddeQwtSdaasx Fremont HospitalComment on above:Order Comment: See Springboard - Labs Due report.Result Comment: This is an appended report. These results have been appended to a previously preliminary verified report.Performed By: #### CBCA ####[facility] ([facility])[address] [place] [address] AVE.[facility], [id number] VIRCELLAVISION POLYCHROMASIA IN BLOOD BY LIGHT MICROSCOPY1+NormalPremier HealthComment on above:Order Comment: See Springboard - Labs Due report.Result Comment: This is an appended report. These results have been appended to a previously preliminary verified report.Performed By: #### CBCA ####[facility] ([address], [id number] VIRErythrocyte distribution width (RBC) [Ratio] 22.2 %High11.5-15Premier HealthComment on above:Order Comment: See Springboard - Labs Due report.Performed By: #### CBCA ####[facility] ([address], [id number] VIRHematocrit (Bld) [Volume fraction]41.0 %Exxkzq06-57YhiSkirkkPremier HealthComment on above: Order Comment: See Springboard - Labs Due report.Performed By: #### CBCA ####[facility] ([facility])[address] [place] [address] AVE.[facility], [id number] VIRHemoglobin (Bld) [Mass/Vol]13.2 g/aEDjljdm13-18WyrSohstzPremier Health Comment on above:Order Comment: See Springboard - Labs Due report.Performed By: #### CBCA ####[facility] ([facility])[address] [place] [address] AVE.[facility], [id number] VIRMCH (RBC) [Entitic mass]30.4 xkMclhfw44-13UiuWnzeyeBellevue Hospital on above:Order Comment: See Springboard - Labs Due report.Performed By: #### CBCA ####[facility] ([facility])[address] [place] [address] AVE.[place], [id number] VIRMCHC (RBC) [Mass/Vol]32.3 g/gFGspzyt76-26 [facility] on above:Order Comment: See Springboard - Labs Due report.Performed By: #### CBCA ####[facility] ([facility])[address] [place], [place] [address]E.[place], [id number] VIRMCV (RBC) [Entitic vol]94 fLNormal 80-100Premier HealthComcorewell health greenville hospital on above:Order Comment: See Springboard - Labs Due report.Performed By: #### CBCA ####[facility] ([address], [id number] VIRPlatelet mean volume (Bld) [Entitic vol]10.1 fLNormal7-12PTerrebonne General Medical Centerica Plumas District HospitalComcorewell health greenville hospital on above:Order Comment: See Springboard - Labs Due report.Performed By: #### CBCA ####[facility] ([address], [id number] VIRPlatelets (Bld) [#/Vol]318 10*3/pHQfmfki508-678DjdIhfdre [place] HospitalComcorewell health greenville hospital on above: Order Comment: See Springboard - Labs Due report.Performed By: #### CBCA ####[facility] ([facility])[address] [place], [place] [address]E.[place], [id number] VIRRBC COUNT4.35 X10E12/LNormal4.1-5.7Premier HealthComcorewell health greenville hospital on above:Order Comment: See Springboard - Labs Due report.Performed By: #### CBCA ####[facility] ([address], [id number] VIRWBC (Bld) [#/Vol]17.3 10*3/uLHigh4-11ProBaylor Scott & White Medical Center – Lake PointeComment on above:Order Comment: See Springboard - Labs Due report.Performed By: #### CBCA ####[facility] ([facility])[address], [id number] [facility] auto differentialon [id number] cell count method Nom (Bld) CELLAVISION DIFFERENTIALAdena Pike Medical CenterComment on above:This is an appended report. These results have been appended to a previously preliminary verified report.Eosinophils (Bld) [#/Vol]0.2 10*3/uL0.0 - 0.4 10*3/uLAdena Pike Medical CenterComment on above:This is an appended report. These results have been appended to a previously preliminary verified report.Eosinophils/100 WBC (Bld)1 %Adena Pike Medical CenterComment on above:This is an appended report. These results have been appended to a previously preliminary verified report. Erythrocyte distribution width (RBC) [Ratio]22.2 %High11.5 - 15 %Adena Pike Medical CenterHematocrit (Bld) [Volume fraction]41 %39 - 50 %Adena Pike Medical CenterHemoglobin (Bld) [Mass/Vol]13.2 g/dL13 - 17 g/dLAdena Pike Medical Center Interpretation and review of laboratory resultsAbnormalAdena Pike Medical Center Lymphocytes (Bld) [#/Vol]5.1 10*3/uLHigh1.0 - 3.5 10*3/uLFairfield Medical Center System Comment on above:This is an appended report. These results have been appended to a previously preliminary verified report.MCH (RBC) [Entitic mass]30.4 pg27 - 34 [facility] MiamisburgMCHC (RBC) [Mass/Vol]32.3 g/dL32 - 36 g/dLAdena Pike Medical CenterMCV (RBC) [Entitic vol]94 fL80 - 100 [facility] Monocytes (Bld) [#/Vol]2.7 10*3/uLHigh0.0 - 0.9 10*3/uLFairfield Medical Center System Comment on above:This is an appended report. These results have been appended to a previously preliminary verified report.Monocytes/100 WBC (Bld)16 %Aden[facility] Pike Medical CenterComment on above:This is an appended report. These results have been appended to a previously preliminary verified report.Neutrophils (Bld) [#/Vol]9.4 10*3/uLHigh1.5 - 6.6 10*3/uLFairfield Medical Center SystemComment on above: This is an appended report. These results have been appended to a previously preliminary verified report.Neutrophils/100 WBC (Bld)54 %[facility] Comment on above:This is an appended report. These results have been appended to a previously preliminary verified report.yDOM8FgiWmqnssAdena Pike Medical CenterComment on above:This is an appended report. These results have been appended to a previously preliminary verified report.Platelet mean volume (Bld) [Entitic vol] 10.1 fL7 - 12 [facility] Psychiatric CenterPlatelets (Bld) [#/Vol]318 10*3/uL Adena Pike Medical CenterPolychromasia LM Ql (Bld)1+Aden[facility]ike Medical CenterComment on above:This is an appended report. These results have been appended to a previously preliminary verified report.RBC (Bld) [#/Vol]4.35 10*6/uLFairfield Medical Center SystemVariant lymphocytes/100 WBC (Bld)28 %Adena Pike Medical CenterComment on above:This is an appended report. These results have been appended to a previously preliminary verified report.Variant lymphocytes/100 WBC (Bld)1 % Adena Pike Medical CenterComment on above:This is an appended report. These results have been appended to a previously preliminary verified report.WBC LM Ql (Sput)17.3HAspirus Langlade Hospital SystemCOMPREHENSIVE METABOLIC PANELon 71-54-2737Dokxjqf [Mass/Vol]3.3 g/dLNormal3.2-5.3PSumma Health Barberton CampusComment on above:Order Comment: See Springboard - Labs Due reportPerformed By: #### CMP ####[facility] ([facility])[address] [place] [address].[place] [address] VIRALP [Catalytic activity/Vol]99 U/LNormal 39-130ProBaylor Scott & White Medical Center – Lake PointeComment on above:Order Comment: See Springboard - Labs Due reportPerformed By: #### CMP ####[facility] ([facility] [address] [address] VIRALT [Catalytic activity/Vol]28 U/L Normal<=40ProBaylor Scott & White Medical Center – Lake PointeComment on above:Order Comment: See Springboard - Labs Due reportPerformed By: #### CMP ####[facility] ([facility] [place] [address] VIRAnion gap [Moles/Vol]9 mmol/LNormal5-15Premier HealthComment on above:Order Comment: See Springboard - Labs Due reportPerformed By: #### CMP ####[facility] ([address] [place] [place] [address] VIRAST [Catalytic activity/Vol]36 U/LNormal<=41ProBaylor Scott & White Medical Center – Lake PointeComment on above:Order Comment: See Springboard - Labs Due reportPerformed By: #### CMP ####[facility] ([address], [place] [address] VIRBilirubin [Mass/Vol]0.4 mg/dLNormal0.3-1.2PSumma Health Barberton Campus Comment on above:Order Comment: See Springboard - Labs Due reportPerformed By: #### CMP ####[facility] ([facility] [place] [address] VIRCalcium [Mass/Vol]9.0 mg/dLNormal8.5-10.5PSumma Health Barberton CampusComment on above:Order Comment: See Springboard - Labs Due reportPerformed By: #### CMP ####[facility] ([facility])[address] [place] [address] [address] [address] VIRChloride [Moles/Vol]101 mmol/SZqfzwn99-206 [facility] Burdett HospitalComment on above:Order Comment: See Springboard - Labs Due reportPerformed By: #### CMP ####[facility] ([address] [place] [address] VIRCO2 [Moles/Vol]27 mmol/RTdkotu49-14 Premier HealthComcorewell health greenville hospital on above:Order Comment: See Springboard - Labs Due reportPerformed By: #### CMP ####[facility] ([address] [address] VIRCreatinine [Mass/Vol]0.64 mg/dLLow 0.70-1.20ProBaylor Scott & White Medical Center – Lake PointeComcorewell health greenville hospital on above:Order Comment: See Springboard - Labs Due reportResult Comment: METHOD TRACEABLE TO IDMS STANDARD Performed By: #### CMP ####[address] [address] VIREGFR (CKD-EPI) NON-RACE DEPENDENT>^90Normal>=60 [facility] on above:Order Comment: See Springboard - Labs Due reportResult Comment: eGFR not reported due to non-numeric value for Creatinine.Reported eGFR is based ontheCKD-EPI 2020 equation that doesnot use a race coefficient.Performed By: #### CMP ####[facility] ([address] [place] [address] VIRGlucose [Mass/Vol]169 mg/dLHigh 65-99ProBaylor Scott & White Medical Center – Lake PointeComcorewell health greenville hospital on above:Order Comment: See Springboard - Labs Due reportPerformed By: #### CMP ####[facility] ([address] [place] [address] VIRPotassium [Moles/Vol]4.1 mmol/L Normal3.5-5.0Premier HealthComcorewell health greenville hospital on above:Order Comment: See Springboard - Labs Due reportPerformed By: #### CMP ####[facility] ([address] [address] VIRProtein [Mass/Vol]6.4 g/dLNormal6.0-8.0Premier HealthComment on above:Order Comment: See Springboard - Labs Due reportPerformed By: #### CMP ####[facility] ([facility])[address] [place] [address] VIRSodium [Moles/Vol]137 mmol/RJfargk592-336FooXipjky [facility] HospitalComment on above: Order Comment: See Springboard - Labs Due reportPerformed By: #### CMP ####[facility] ([facility])[address] [place] [address] VIRUrea nitrogen [Mass/Vol]7 mg/dLNormal5-27[facility] Comment on above:Order Comment: See Springboard - Labs Due reportPerformed By: #### CMP ####[facility] ([facility])[address] [place] [address] VIRComprehensive metabolic panelon 49-93-5249Xyudsbd [Mass/Vol]3.3 g/dL3.2 - 5.3 g/dLProMedica Health SystemALP [Catalytic activity/Vol]99 U/L39 - 130 U/LProMedica Health SystemALT No additional P-5'-P [Catalytic activity/Vol]28 U/LNINF - 40 U/LProMedica Health SystemAnion gap [Moles/Vol]9 mmol/L5 - 15 mmol/LProMedica Health SystemAST [Catalytic activity/Vol]36 U/LNINF - 41 U/LProMedica Health SystemBilirubin [Mass/Vol]0.4 mg/dL0.3 - 1.2 mg/dLProMedica Health SystemCalcium [Mass/Vol]9 mg/dL8.5 - 10.5 mg/dLProMedica Health SystemChloride [Moles/Vol]101 mmol/L98 - 109 mmol/L ProMedica Health SystemCO2 [Moles/Vol]27 mmol/L22 - 32 mmol/LProMedica Health SystemCreatinine [Mass/Vol]0.64 mg/dLLow0.70 - 1.20 mg/dLAdena Pike Medical Center Comment on above:METHOD TRACEABLE TO IDMO STANDARDEGFR Non-Race Dependent- PINF Adena Pike Medical CenterComment on above:eGFR not reported due to non-numeric value for Creatinine. Reported eGFR is based on the CKD-EPI 2020 equation that does not use a race coefficient. Glucose [Mass/Vol]169 mg/mGNurx15 - 99 mg/dLAdena Pike Medical Center Interpretation and review of laboratory resultsAbnoSloop Memorial Hospital Potassium [Moles/Vol]4.1 mmol/L3.5 - 5.0 mmol/LProMedica Health SystemProtein [Mass/Vol]6.4 g/dL6.0 - 8.0 g/dLAtrium Health Carolinas Medical Centerodium [Moles/Vol]137 mmol/L134 - 146 mmol/[facility] HealthoMedEast Liverpool City Hospital SystemUrea nitrogen [Mass/Vol]7 mg/dL5 - 27 mg/dLGeisinger-Lewistown HospitalPET CT SKULL TO THIGHon 05-44-0676TSY CT SKULL TO THIGHNoTrinity Health System East CampusTHYROID PROFILE INCLUDES TSH FT4on 87-10-2709Tpsz T4 [Mass/Vol]1.11 ng/dLNormal0.61-1.60 Premier HealthComment on above:Performed By: #### THYR ####[facility] ([address] VIRTSH3.09 uIU/mLNormal0.49-4.67Premier HealthComment on above:Performed By: #### THYR ####[facility] ([address] [id number] VIRThyroid profile includes TSH FT4on 10-21-6858Larv T4 [Mass/Vol]1.11 ng/dL0.61 - 1.60 ng/dLAdena Pike Medical CenterInterpretation and review of laboratory resultsNoAtrium Health Qn3.09 m[IU]/L [facility] WITH AUTO DIFFERENTIALon 67-70-7193Nkmr form neutrophils/100 WBC (Bld)1 %NormalPremier Health Comment on above:Order Comment: See Springboard - Labs Due report.Result Comment: This is an appended report. These results have been appended to a previously preliminary verified report.Performed By: #### CBCA ####[facility]UR[facility]ATrang [facility] ([facility])[address] [place] [address], [id number] VIR CELLAVISION ATYPICAL LYMPHOCYTES RELATIVE PERCENT BY MANUAL COUNT3 %Normal Premier HealthComcorewell health greenville hospital on above:Order Comment: See Springboard - Labs Due report.Result Comment: This is an appended report. These results have been appended to a previously preliminary verified report.Performed By: #### CBCA ####[facility] ([address], [place] VIRCELLAVISION DIFFERENTIAL TYPEMANUAL DIFFERENTIALNormalPremier HealthComcorewell health greenville hospital on above:Order Comment: See Springboard - Labs Due report.Result Comment: This is an appended report. These results have been appended to a previously preliminary verified report.Performed By: #### CBCA ####[facility] ([address], [id number] VIR CELLAVISION EOSINOPHILS ABSOLUTE COUNT (10*3/UL) BY MANUAL COUNT0.2 10*3/uL Normal0.0-0.4[facility] on above:Order Comment: See Springboard - Labs Due report.Result Comment: This is an appended report. These results have been appended to a previously preliminary verified report.Performed By: #### CBCA ####[facility]UR[facility]ATrang [facility] ([address], [id number] VIRCELLAVISION EOSINOPHILS PERCENT BY MANUAL COUNT2 %Normal [facility] on above:Order Comment: See Springboard - Labs Due report.Result Comment: This is an appended report. These results have been appended to a previously preliminary verified report.Performed By: #### CBCA ####[facility] ([address], [id number] VIRCELLAVISION LYMPHOCYTES ABSOLUTE COUNT (10*3/UL) BY MANUAL COUNT6.2 10*3/uL High1.0-3.5PSt. John of God Hospital on above:Order Comment: See Springboard - Labs Due report.Result Comment: This is an appended report. These results have been appended to a previously preliminary verified report.Performed By: #### CBCA ####[facility] ([facility])[address] [place] [address], [id number] VIRCELLAVISION LYMPHOCYTES RELATIVE PERCENT BY MANUAL COUNT 48 %NormalProTexas Vista Medical Center on above:Order Comment: See Springboard - Labs Due report.Result Comment: This is an appended report. These results have been appended to a previously preliminary verified report.Performed By: #### CBCA ####[facility] ([address], [id number] VIRCELLAVISION MONOCYTES ABSOLUTE COUNT (10*3/UL) IN BLOOD BY MANUAL COUNT1.1 10*3/uLHigh0.0-0.9[facility] on above: Order Comment: See Springboard - Labs Due report.Result Comment: This is an appended report. These results have been appended to a previously preliminary verified report.Performed By: #### CBCA ####[facility] ([address], [id number] VIRCELLAVISION MONOCYTES RELATIVE PERCENT BY MANUAL COUNT9 %NormalB[facility]vue Hospital on above:Order Comment: See Springboard - Labs Due report.Result Comment: This is an appended report. These results have been appended to a previously preliminary verified report.Performed By: #### CBCA ####[facility] ([address], [id number] VIRCELLAVISION MYELOCYTE RELATIVE PERCENT BY MANUAL COUNT1 %NormalBellevue Hospital on above:Order Comment: See Springboard - Labs Due report.Result Comment: This is an appended report. These results have been appended to a previously preliminary verified report. Performed By: #### CBCA ####[facility] ([facility])[address] [place] [address], [id number] VIRCELLAVISION NEUTROPHILS ABSOLUTE COUNT BY MANUAL COUNT4.4 10*3/uLNormal1.5-6.6[facility] on above:Order Comment: See Springboard - Labs Due report.Result Comment: This is an appended report. These results have been appended to a previously preliminary verified report.Performed By: #### CBCA ####[facility] AUR[facility]ATrang [facility] ([facility])[address] [place] [address], [id number] VIRCELLAVISION NEUTROPHILS RELATIVE PERCENT BY MANUAL COUNT36 %NormalProTexas Vista Medical Center on above:Order Comment: See Springboard - Labs Due report.Result Comment: This is an appended report. These results have been appended to a previously preliminary verified report. Performed By: #### CBCA ####[facility] AUR[facility]ATrang [facility] ([facility])[address] [place] [address], [id number] VIRCELLAVISION TARGET CELLS IN BLOOD BY LIGHT MICROSCOPY1+NormalProTexas Vista Medical Center on above:Order Comment: See Beneqboard - Labs Due report.Result Comment: This is an appended report. These results have been appended to a previously preliminary verified report.Performed By: #### CBCA ####[facility] AURORATrang [facility] ([facility])[address] [place] [address], [id number] VIRErythrocyte distribution width (RBC) [Ratio]21.2 %High 11.5-15ProTexas Vista Medical Center on above:Order Comment: See Beneqboard - Labs Due report.Performed By: #### CBCA ####[facility] ([facility])[address] [place] [address], [id number] VIRHematocrit (Bld) [Volume fraction]39.7 %Ehodzn68-70XeeGifqjdBellevue Hospital on above:Order Comment: See Springboard - Labs Due report.Performed By: #### CBCA ####[facility] ([address], [id number] VIRHemoglobin (Bld) [Mass/Vol]13.1 g/wXJqtxig79-51DitCjsjwuPremier HealthComment on above: Order Comment: See Springboard - Labs Due report.Performed By: #### CBCA ####[facility] ([address], [id number] VIRMCH (RBC) [Entitic mass]30.5 kfPngxus95-83ZvtFelybkBaylor Scott & White Medical Center – Lake PointeComment on above:Order Comment: See Springboard - Labs Due report.Performed By: #### CBCA ####[facility] ([address] [place] [address] VIRMCHC (RBC) [Mass/Vol]32.9 g/aWMlydgb14-08CtdTgyyqnPremier Health Comment on above:Order Comment: See Springboard - Labs Due report.Performed By: #### CBCA ####[facility] ([address], [id number] VIRMCV (RBC) [Entitic vol]93 aXXuvqmk84-666XqoEcrbefPremier HealthComcorewell health greenville hospital on above:Order Comment: See Springboard - Labs Due report.Performed By: #### CBCA ####[facility] ([address], [id number] VIRPlatelet mean volume (Bld) [Entitic vol]9.6 fLNormal7-12PSumma Health Barberton CampusComment on above:Order Comment: See Springboard - Labs Due report.Performed By: #### CBCA ####[facility] ([address], [id number] VIRPlatelets (Bld) [#/Vol]392 10*3/xSHacxnp846-002JtyVootdxPremier HealthComcorewell health greenville hospital on above:Order Comment: See Springboard - Labs Due report.Performed By: #### CBCA ####[facility] ([address], [place] VIRRBC COUNT 4.29 X10E12/LNormal4.1-5.7Premier HealthComment on above:Order Comment: See Springboard - Labs Due report.Performed By: #### CBCA ####[facility] ([address], [place] VIRWBC (Bld) [#/Vol]12.0 10*3/uLHigh4-11Premier HealthComcorewell health greenville hospital on above:Order Comment: See Springboard - Labs Due report.Performed By: #### CBCA ####[facility] ([address] [id number] VIR COMPREHENSIVE METABOLIC PANELon 22-58-2278Txraorj [Mass/Vol]3.2 g/dLNormal 3.2-5.3PSumma Health Barberton CampusComment on above:Order Comment: See Springboard - Labs Due reportPerformed By: #### CMP ####[facility] ([address] [place] [address] VIRALP [Catalytic activity/Vol]88 U/L Gontts72-680CazExhtklBaylor Scott & White Medical Center – Lake PointeComcorewell health greenville hospital on above:Order Comment: See Springboard - Labs Due reportPerformed By: #### CMP ####[facility] ([address] [address] VIRALT [Catalytic activity/Vol]26 U/LNormal<=40ProBaylor Scott & White Medical Center – Lake PointeComment on above:Order Comment: See Springboard - Labs Due reportPerformed By: #### CMP ####[facility] ([address] [place] [address] VIRAnion gap [Moles/Vol]10 mmol/LNormal5-15ProBaylor Scott & White Medical Center – Lake PointeComment on above:Order Comment: See Springboard - Labs Due reportPerformed By: #### CMP ####[facility] ([address] [place] [address] VIRAST [Catalytic activity/Vol]32 U/LNormal<=41ProBaylor Scott & White Medical Center – Lake PointeComment on above:Order Comment: See Springboard - Labs Due reportPerformed By: #### CMP ####[facility] ([address], [place] [address] VIRBilirubin [Mass/Vol]0.2 mg/dLLow0.3-1.2PSumma Health Barberton CampusComment on above:Order Comment: See Springboard - Labs Due reportPerformed By: #### CMP ####[facility] ([address], [place] [address] VIRCalcium [Mass/Vol]8.7 mg/dLNormal8.5-10.5PSumma Health Barberton Campus Comment on above:Order Comment: See Springboard - Labs Due reportPerformed By: #### CMP ####[facility] ([address] [address] VIRChloride [Moles/Vol]101 mmol/ITelmsh21-917FhkWszkjqPremier HealthComment on above:Order Comment: See Springboard - Labs Due reportPerformed By: #### CMP ####[facility] ([address] [place] [address] VIRCO2 [Moles/Vol]26 mmol/BHkowop15-17CcqQqdnnmSumma Health Barberton CampusComment on above:Order Comment: See Springboard - Labs Due reportPerformed By: #### CMP ####[facility] ([address] [address] VIRCreatinine [Mass/Vol]0.84 mg/dLNormal 0.70-1.20Premier HealthComment on above:Order Comment: See Springboard - Labs Due reportResult Comment: METHOD TRACEABLE TO IDMS STANDARD Performed By: #### CMP ####[facility] ([facility])[address] [place] [address] [place] [address] VIREGFR (CKD-EPI) NON-RACE DEPENDENT>^90Normal>=60 [facility] on above:Order Comment: See Springboard - Labs Due reportResult Comment: eGFR not reported due to non-numeric value for Creatinine.Reported eGFR is based ontheCKD-EPI 2020 equation that doesnot use a race coefficient.Performed By: #### CMP ####[facility] ([address] [place] [address] VIRGlucose [Mass/Vol]136 mg/dLHigh 65-99ProBaylor Scott & White Medical Center – Lake PointeComment on above:Order Comment: See Springboard - Labs Due reportPerformed By: #### CMP ####[facility] ([address] [place] [address] VIRPotassium [Moles/Vol]4.3 mmol/L Normal3.5-5.0Premier HealthComment on above:Order Comment: See Springboard - Labs Due reportPerformed By: #### CMP ####[facility] ([address] [place] [address] VIRProtein [Mass/Vol]6.3 g/dLNormal6.0-8.0Premier HealthComment on above:Order Comment: See Springboard - Labs Due reportPerformed By: #### CMP ####[facility] ([address] [place] [address] VIRSodium [Moles/Vol]137 mmol/WIxtzqh334-301KduTypanz [facility] HospitalComment on above: Order Comment: See Springboard - Labs Due reportPerformed By: #### CMP ####[facility] ([address], [place] [address] VIRUrea nitrogen [Mass/Vol]13 mg/dLNormal5-27ProBibb Medical Centermont Hospital Comment on above:Order Comment: See Springboard - Labs Due reportPerformed By: #### CMP ####[facility] ([facility])[address] [place] [address].[place] [address] VIRTHYROID PROFILE INCLUDES TSH FT4on [id number] T4 [Mass/Vol]1.17 ng/dLNormal0.61-1.60Premier HealthComment on above: Performed By: #### THYR ####[facility] ([facility])[address] [place] [address].[place], [id number] VIRTSH2.97 uIU/mLNormal0.49-4.67ProBaylor Scott & White Medical Center – Lake PointeComment on above:Performed By: #### THYR ####[facility] ([address], [id number] VIRCBC WITH AUTO DIFFERENTIAL on 01-97-2478Kzat form neutrophils/100 WBC (Bld)1 %NormalProBaylor Scott & White Medical Center – Lake PointeComment on above:Order Comment: See Springboard - Labs Due report.Result Comment: This is an appended report. These results have been appended to a previously preliminary verified report.Performed By: #### CBCA ####[facility] ([facility])[address] [place] [address].[place], [id number] VIR CELLAVISION ATYPICAL LYMPHOCYTES RELATIVE PERCENT BY MANUAL COUNT1 %Normal Premier HealthComcorewell [facility] on above:Order Comment: See Springboard - Labs Due report.Result Comment: This is an appended report. These results have been appended to a previously preliminary verified report.Performed By: #### CBCA ####[facility] ([facility])[address] [place] [address].[place], [id number] VIRCELLAVISION DIFFERENTIAL TYPEMANUAL DIFFERENTIALNormalPremier HealthComcorewell health greenville hospital on above:Order Comment: See Springboard - Labs Due report.Result Comment: This is an appended report. These results have been appended to a previously preliminary verified report.Performed By: #### CBCA ####[facility]AA [facility] ([facility])[address] [place] [address], [id number] VIR CELLAVISION EOSINOPHILS ABSOLUTE COUNT (10*3/UL) BY MANUAL COUNT0.6 10*3/uLHigh 0.0-0.4ProTexas Vista Medical Center on above:Order Comment: See Springboard - Labs Due report.Result Comment: This is an appended report. These results have been appended to a previously preliminary verified report.Performed By: #### CBCA ####[facility]UR[facility]ATrang [facility] ([facility])[address] [place] [address], [id number] VIRCELLAVISION EOSINOPHILS PERCENT BY MANUAL COUNT3 %Normal [facility] on above:Order Comment: See Springboard - Labs Due report.Result Comment: This is an appended report. These results have been appended to a previously preliminary verified report.Performed By: #### CBCA ####[facility]ATrang [facility] ([address], [id number] VIRCELLAVISION LYMPHOCYTES ABSOLUTE COUNT (10*3/UL) BY MANUAL COUNT6.7 10*3/uL High1.0-3.5PSt. John of God [facility] on above:Order Comment: See Springboard - Labs Due report.Result Comment: This is an appended report. These results have been appended to a previously preliminary verified report.Performed By: #### CBCA ####[facility] ([address], [id number] VIRCELLAVISION LYMPHOCYTES RELATIVE PERCENT BY MANUAL COUNT 35 %NormalBellevue Hospital on above:Order Comment: See Springboard - Labs Due report.Result Comment: This is an appended report. These results have been appended to a previously preliminary verified report.Performed By: #### CBCA ####[facility] ([address], [id number] VIRCELLAVISION MONOCYTES ABSOLUTE COUNT (10*3/UL) IN BLOOD BY MANUAL COUNT2.2 10*3/uLHigh0.0-0.9ProTexas Vista Medical Center on above: Order Comment: See Springboard - Labs Due report.Result Comment: This is an appended report. These results have been appended to a previously preliminary verified report.Performed By: #### CBCA ####[facility] ([facility])[address] [place] [address], [id number] VIRCELLAVISION MONOCYTES RELATIVE PERCENT BY MANUAL COUNT12 %NormalProTexas Vista Medical Center on above: Order Comment: See Springboard - Labs Due report.Result Comment: This is an appended report. These results have been appended to a previously preliminary verified report.Performed By: #### CBCA ####[facility] ([facility])[address] [place] [address], [id number] VIRCELLAVISION MYELOCYTE RELATIVE PERCENT BY MANUAL COUNT1 %NormalBellevue Hospital on above:Order Comment: See Springboard - Labs Due report.Result Comment: This is an appended report. These results have been appended to a previously preliminary verified report.Performed By: #### CBCA ####[facility] ([facility])[address] [place] [address], [id number] VIRCELLAVISION NEUTROPHILS ABSOLUTE COUNT BY MANUAL COUNT8.8 10*3/uLHigh1.5-6.6[facility] on above: Order Comment: See Springboard - Labs Due report.Result Comment: This is an appended report. These results have been appended to a previously preliminary verified report.Performed By: #### CBCA ####[facility] ([facility])[address] [place] [address], [id number] VIRCELLAVISION NEUTROPHILS RELATIVE PERCENT BY MANUAL COUNT47 %NormalProBaylor Scott & White Medical Center – Lake PointeComcorewell health greenville hospital on above: Order Comment: See Springboard - Labs Due report.Result Comment: This is an appended report. These results have been appended to a previously preliminary verified report.Performed By: #### CBCA ####[facility] ([facility])[address] [place] [address], [id number] VIRCELLAVISION NUCLEATED RED BLOOD CELLS IN BLOOD BY LIGHT SQIJLZGNPA2IcfdzgCgyBartyyTexas Vista Medical Center on above:Order Comment: See Springboard - Labs Due report.Result Comment: This is an appended report. These results have been appended to a previously preliminary verified report.Performed By: #### CBCA ####[facility] ([facility])[address] [place] [address] AVE.[facility], [id number] VIRCELLAVISION POLYCHROMASIA IN BLOOD BY LIGHT MICROSCOPY1+NormalBellevue Hospital on above:Order Comment: See Springboard - Labs Due report.Result Comment: This is an appended report. These results have been appended to a previously preliminary verified report.Performed By: #### CBCA ####[facility]ATrang [facility] ([address], [id number] VIRCELLAVISION TARGET CELLS IN BLOOD BY LIGHT MICROSCOPY1+NormalBellevue Hospital on above:Order Comment: See Springboard - Labs Due report.Result Comment: This is an appended report. These results have been appended to a previously preliminary verified report.Performed By: #### CBCA ####[facility] ([address], [id number] VIRErythrocyte distribution width (RBC) [Ratio]20.1 %High 11.5-15[facility] on above:Order Comment: See Beneqboard - Labs Due report.Performed By: #### CBCA ####[facility] ([facility])[address] [place] [address].[facility], [id number] VIRHematocrit (Bld) [Volume fraction]39.2 %Tkpypu61-03LqaXabohjBellevue Hospital on above:Order Comment: See Beneqboard - Labs Due report.Performed By: #### CBCA ####[facility] ([address], [id number] VIRHemoglobin (Bld) [Mass/Vol]12.8 g/sHCyf88-20XvxGwuutsPremier HealthComment on above: Order Comment: See Springboard - Labs Due report.Performed By: #### CBCA ####[facility] ([address] [id number] VIRMCH (RBC) [Entitic mass]30.1 qvXtbtfs40-72XptBdfaviPremier HealthComment on above:Order Comment: See Springboard - Labs Due report.Performed By: #### CBCA ####[facility] ([facility])[address] [place] [address].[place] [address] VIRMCHC (RBC) [Mass/Vol]32.5 g/tPDpekqa65-75KfuZwwghbPremier Health Comment on above:Order Comment: See Springboard - Labs Due report.Performed By: #### CBCA ####[facility] ([address], [id number] VIRMCV (RBC) [Entitic vol]93 kLVyvhzk09-720HudAtywztPremier HealthComment on above:Order Comment: See Springboard - Labs Due report.Performed By: #### CBCA ####[facility] ([address] [id number] VIRPlatelet mean volume (Bld) [Entitic vol]9.7 fLNormal7-12PSumma Health Barberton CampusComment on above:Order Comment: See Springboard - Labs Due report.Performed By: #### CBCA ####[facility] ([address] [id number] VIRPlatelets (Bld) [#/Vol]323 10*3/uZXtheoy075-903SngCmekvqPremier HealthComcorewell health greenville hospital on above:Order Comment: See Springboard - Labs Due report.Performed By: #### CBCA ####[facility] ([address] [id number] VIRRBC COUNT 4.23 X10E12/LNormal4.1-5.7Premier HealthComment on above:Order Comment: See Springboard - Labs Due report.Performed By: #### CBCA ####[facility] ([facility])[address] [place] [address] AVE.[place], [id number] VIRWBC (Bld) [#/Vol]18.5 10*3/uLHigh4-11ProBaylor Scott & White Medical Center – Lake PointeComment on above:Order Comment: See Springboard - Labs Due report.Performed By: #### CBCA ####[facility] ([facility])[address] [place] [address] AVE.[place], [id number] VIRCBC auto differentialon 88-39-3965Dlqo form neutrophils/100 WBC (Bld)1 %[facility] Medical CenterComment on above:This is an appended report. These results have been appended to a previously preliminary verified report.Differential cell count method Nom (Bld)MANUAL DIFFERENTIALAdena Pike Medical CenterComment on above:This is an appended report. These results have been appended to a previously preliminary verified report.Eosinophils (Bld) [#/Vol]0.6 10*3/uLHigh0.0 - 0.4 10*3/uLAdena Pike Medical CenterComment on above:This is an appended report. These results have been appended to a previously preliminary verified report. Eosinophils/100 WBC (Bld)3 %[facility] Medical CenterComment on above:This is an appended report. These results have been appended to a previously preliminary verified report.Erythrocyte distribution width (RBC) [Ratio]20.1 %High11.5 - 15 %[facility] SystemHematocrit (Bld) [Volume fraction]39.2 %39 - 50 % [facility] Medical CenterHemoglobin (Bld) [Mass/Vol]12.8 g/dLLow13 - 17 g/dL [facility] Medical CenterInterpretation and review of laboratory resultsAbnormal [facility] Medical CenterLymphocytes (Bld) [#/Vol]6.7 10*3/uLHigh1.0 - 3.5 10*3/uL [facility] Medical CenterComment on above:This is an appended report. These results have been appended to a previously preliminary verified report.MCH (RBC) [Entitic mass]30.1 pg27 - 34 [facility] MiamisburgMCHC (RBC) [Mass/Vol]32.5 g/dL32 - 36 g/dLAdena Pike Medical CenterMCV (RBC) [Entitic vol]93 fL80 - 100 fL [facility] Medical CenterMonocytes (Bld) [#/Vol]2.2 10*3/uLHigh0.0 - 0.9 10*3/uL [facility] Medical CenterComment on above:This is an appended report. These results have been appended to a previously preliminary verified report. Monocytes/100 WBC (Bld)12 %[facility] Medical CenterComment on above:This is an appended report. These results have been appended to a previously preliminary verified report.Myelocytes/100 WBC (Bld)1 %[facility] Medical CenterComment on above:This is an appended report. These results have been appended to a previously preliminary verified report.Neutrophils (Bld) [#/Vol]8.8 10*3/uLHigh 1.5 - 6.6 10*3/uLAdena Pike Medical CenterComment on above:This is an appended report. These results have been appended to a previously preliminary verified re port.Neutrophils/100 WBC (Bld)47 %[facility] Medical CenterComment on above:This is an appended report. These results have been appended to a previously preliminary verified report.[id number] [place], [place] [address]Comment on above:This is an appended report. These results have been appended to a previously preliminary verified report.Platelet mean volume (Bld) [Entitic vol]9.7 fL7 - 12 [facility] CenterPlatelets (Bld) [#/Vol]323 10*3/uLAdena Pike Medical CenterPolychromasia LM Ql (Bld)1+[facility] Medical CenterComment on above:This is an appended report. These results have been appended to a previously preliminary verified report.RBC (Bld) [#/Vol]4.23 10*6/uLAdena Pike Medical Center Target cells LM Ql (Bld)1+[facility] Medical CenterComment on above:This is an appended report. These results have been appended to a previously preliminary verified report.Variant lymphocytes/100 WBC (Bld)35 %[facility] Comment on above:This is an appended report. These results have been appended to a previously preliminary verified report.Variant lymphocytes/100 WBC (Bld)1 % [facility] Medical CenterComment on above:This is an appended report. These results have been appended to a previously preliminary verified report.WBC LM Ql (Sput)18.5HBarix Clinics of PennsylvaniaCOMPREHENSIVE METABOLIC PANELon 56-73-9094Aifgkcd [Mass/Vol]3.4 g/dLNormal3.2-5.3PSumma Health Barberton CampusComment on above:Order Comment: See Springboard - Labs Due reportPerformed By: #### CMP ####[facility] ([facility])[address] [place] [address] [place] [address] VIRALP [Catalytic activity/Vol]97 U/LNormal 39-130ProBaylor Scott & White Medical Center – Lake PointeComment on above:Order Comment: See Springboard - Labs Due reportPerformed By: #### CMP ####[facility] ([facility])[address] [place] [address] [place] [address] VIRALT [Catalytic activity/Vol]28 U/L Normal<=40Premier HealthComment on above:Order Comment: See Springboard - Labs Due reportPerformed By: #### CMP ####[facility] ([facility])[address] [place], [place] [address] [place] [address] VIRAnion gap [Moles/Vol]6 mmol/LNormal5-15ProBaylor Scott & White Medical Center – Lake PointeComment on above:Order Comment: See Springboard - Labs Due reportPerformed By: #### CMP ####[facility] ([facility])[address] [place] [address] [place] [address] VIRAST [Catalytic activity/Vol]30 U/LNormal<=41ProBaylor Scott & White Medical Center – Lake PointeComment on above:Order Comment: See Springboard - Labs Due reportPerformed By: #### CMP ####[facility] ([facility])[address] [place] [address] [address]VE.[place], [place] [address] VIRBilirubin [Mass/Vol]0.4 mg/dLNormal0.3-1.2PSumma Health Barberton Campus Comment on above:Order Comment: See Springboard - Labs Due reportPerformed By: #### CMP ####[facility] ([address] [place] [address] VIRCalcium [Mass/Vol]8.8 mg/dLNormal8.5-10.5PSumma Health Barberton CampusComment on above:Order Comment: See Springboard - Labs Due reportPerformed By: #### CMP ####[facility] ([address] [place] [address] VIRChloride [Moles/Vol]103 mmol/PTpxvwu55-543 Premier HealthComment on above:Order Comment: See Springboard - Labs Due reportPerformed By: #### CMP ####[facility] ([address] [place] [address] VIRCO2 [Moles/Vol]27 mmol/BGqzswn69-89 Premier HealthComment on above:Order Comment: See Springboard - Labs Due reportPerformed By: #### CMP ####[facility] ([address] [place] [address] VIRCreatinine [Mass/Vol]0.81 mg/dL Normal0.70-1.20Premier HealthComment on above:Order Comment: See Springboard - Labs Due reportResult Comment: METHOD TRACEABLE TO IDMS STANDARD Performed By: #### CMP ####[facility] ([address] [place] [address] VIREGFR (CKD-EPI) NON-RACE DEPENDENT>^90Normal>=60 Premier HealthComment on above:Order Comment: See Springboard - Labs Due reportResult Comment: eGFR not reported due to non-numeric value for Creatinine.Reported eGFR is based ontheCKD-EPI 2020 equation that doesnot use a race coefficient.Performed By: #### CMP ####[facility] ([address] [place] [address] VIRGlucose [Mass/Vol]106 mg/dLHigh 65-99ProBaylor Scott & White Medical Center – Lake PointeComment on above:Order Comment: See Springboard - Labs Due reportPerformed By: #### CMP ####[facility] ([address] [address] VIRPotassium [Moles/Vol]4.4 mmol/L Normal3.5-5.0ProBaylor Scott & White Medical Center – Lake PointeComment on above:Order Comment: See Springboard - Labs Due reportPerformed By: #### CMP ####[facility] ([address] [address] VIRProtein [Mass/Vol]6.7 g/dLNormal6.0-8.0ProBaylor Scott & White Medical Center – Lake PointeComment on above:Order Comment: See Springboard - Labs Due reportPerformed By: #### CMP ####[facility] ([address] [address] VIRSodium [Moles/Vol]136 mmol/LCddeuf023-281TmmWbwgua Fremont HospitalComment on above: Order Comment: See Springboard - Labs Due reportPerformed By: #### CMP ####[facility] ([address] [address] VIRUrea nitrogen [Mass/Vol]13 mg/dLNormal5-27ProBaylor Scott & White [facility] Center – [facility] Pointe Comment on above:Order Comment: See Springboard - Labs Due reportPerformed By: #### CMP ####[facility] ([address] [address] VIRComprehensive metabolic panelon 24-80-6473Youufna [Mass/Vol]3.4 g/dL3.2 - 5.3 g/dLProCleveland Clinic [facility] Hospital SystemALP [Catalytic activity/Vol]97 U/L39 - 130 U/LPrYuma District Hospital Health SystemALT No additional P-5'-P [Catalytic activity/Vol]28 U/LNINF - 40 U/[facility] SystemAnion gap [Moles/Vol]6 mmol/L5 - 15 mmol/LPrYuma District Hospital Health SystemAST [Catalytic activity/Vol]30 U/LNINF - 41 U/[facility] SystemBilirubin [Mass/Vol]0.4 mg/dL0.3 - 1.2 mg/dLFairfield Medical Center SystemCalcium [Mass/Vol]8.8 mg/dL8.5 - 10.5 mg/dLAdena Pike Medical CenterChloride [Moles/Vol]103 mmol/L98 - 109 mmol/L [facility] CenterCO2 [Moles/Vol]27 mmol/L22 - 32 mmol/[facility] SystemCreatinine [Mass/Vol]0.81 mg/dL0.70 - 1.20 mg/dLAdena Pike Medical Center Comment on above:METHOD TRACEABLE TO IDMS STANDARDEGFR Non-Race Dependent- PINF [facility] Medical CenterComment on above:eGFR not reported due to non-numeric value for Creatinine. Reported eGFR is based on the CKD-EPI 2020 equation that does not use a race coefficient. Glucose [Mass/Vol]106 mg/kXAlge53 - 99 mg/dLAdena Pike Medical Center Interpretation and review of laboratory resultsAbnormalAdena Pike Medical Center Potassium [Moles/Vol]4.4 mmol/L3.5 - 5.0 mmol/[facility] SystemProtein [Mass/Vol]6.7 g/dL6.0 - 8.0 g/dLAtrium Health Carolinas Medical Centerodium [Moles/Vol]136 mmol/L134 - 146 mmol/[facility] SystemUrea nitrogen [Mass/Vol]13 mg/dL5 - 27 mg/dLGeisinger-Lewistown HospitalTHYROID PROFILE INCLUDES TSH FT4on 98-47-4847Mehf T4 [Mass/Vol]1.12 ng/dLNormal0.61-1.60Premier HealthComment on above:Performed By: #### THYR ####[facility] ([address] [id number] VIRTSH2.08 uIU/mLNormal 0.49-4.67Premier HealthComment on above:Performed By: #### THYR ####[facility] ([facility])[address] [place] [address], [id number] VIRThyroid profile includes TSH FT4on 75-06-9341Mhfl T4 [Mass/Vol]1.12 ng/dL 0.61 - 1.60 ng/dLAdena Pike Medical CenterInterpretation and review of laboratory resultsNoAtrium Health Qn2.08 m[IU]/[facility] HealthoMedTomah Memorial HospitalCBC WITH AUTO DIFFERENTIALon 35-71-4155Llum form neutrophils/100 WBC (Bld)2 %NormalProBaylor Scott & White Medical Center – Lake PointeComment on above: Order Comment: See Springboard - Labs Due report.Result Comment: This is an appended report. These results have been appended to a previously preliminary verified report.Performed By: #### CBCA ####[facility] ([address], [id number] VIRCELLAVISION ATYPICAL LYMPHOCYTES RELATIVE PERCENT BY MANUAL COUNT8 %NormalProBaylor Scott & White Medical Center – Lake PointeComment on above:Order Comment: See Springboard - Labs Due report.Result Comment: This is an appended report. These results have been appended to a previously preliminary verified report.Performed By: #### CBCA ####[facility] ([address], [id number] VIRCELLAVISION BASOPHILS ABSOLUTE COUNT (10*3/UL) BY MANUAL COUNT0.2 10*3/uLNoTrinity Health System East Campus Comment on above:Order Comment: See Springboard - Labs Due report.Result Comment: This is an appended report. These results have been appended to a previously preliminary verified report.Performed By: #### CBCA ####[facility] ([address] [id number] VIR CELLAVISION BASOPHILS RELATIVE PERCENT BY MANUAL COUNT1 %NormalBellevue Hospital on above:Order Comment: See Springboard - Labs Due report. Result Comment: This is an appended report. These results have been appended to a previously preliminary verified report.Performed By: #### CBCA ####[facility]ATrang [facility] ([facility])[address] [place], [place] [id number] VIR CELLAVISION DIFFERENTIAL TYPECELLAVISION DIFFERENTIALNormalProTexas Vista Medical Center on above:Order Comment: See Springboard - Labs Due report.Result Comment: This is an appended report. These results have been appended to a previously preliminary verified report.Performed By: #### CBCA ####[facility]UR[facility]ATrang [facility] ([address] VIR CELLAVISION EOSINOPHILS ABSOLUTE COUNT (10*3/UL) BY MANUAL COUNT0.6 10*3/uL [facility] on above:Order Comment: See Springboard - Labs Due report.Result Comment: This is an appended report. These results have been appended to a previously preliminary verified report.Performed By: #### CBCA ####[facility]UR[facility]ATrang [facility] ([address] [place] [address] VIRCELLAVISION EOSINOPHILS PERCENT BY MANUAL COUNT3 %[facility] on above:Order Comment: See Springboard - Labs Due report.Result Comment: This is an appended report. These results have been appended to a previously preliminary verified report.Performed By: #### CBCA ####[facility] AURORATrang [facility] ([address] [id number] VIRCELLAVISION LYMPHOCYTES ABSOLUTE COUNT (10*3/UL) BY MANUAL COUNT5.3 10*3/uL NormalBellevue Hospital on above:Order Comment: See Springboard - Labs Due report.Result Comment: This is an appended report. These results have been appended to a previously preliminary verified report.Performed By: #### CBCA ####[facility] ([place])[address] [place] [address], [place] [address] VIRCELLAVISION LYMPHOCYTES RELATIVE PERCENT BY MANUAL COUNT21 %Normal [facility] on above:Order Comment: See Springboard - Labs Due report.Result Comment: This is an appended report. These results have been appended to a previously preliminary verified report.Performed By: #### CBCA ####[facility] ([address], [id number] VIRCELLAVISION MONOCYTES ABSOLUTE COUNT (10*3/UL) IN BLOOD BY MANUAL COUNT1.3 10*3/uLNormalBellevue Hospital on above:Order Comment: See Springboard - Labs Due report.Result Comment: This is an appended report. These results have been appended to a previously preliminary verified report.Performed By: #### CBCA ####[facility] ([address], [id number] VIRCELLAVISION MONOCYTES RELATIVE PERCENT BY MANUAL COUNT7 %NormalBellevue Hospital on above:Order Comment: See Springboard - Labs Due report.Result Comment: This is an appended report. These results have been appended to a previously preliminary verified report.Performed By: #### CBCA ####[facility] AURORATrang [facility] ([address], [id number] VIRCELLAVISION MYELOCYTE RELATIVE PERCENT BY MANUAL COUNT3 %NormalBellevue Hospital on above:Order Comment: See Springboard - Labs Due report.Result Comment: This is an appended report. These results have been appended to a previously preliminary verified report.Performed By: #### CBCA ####[facility] ([address], [place] VIRCELLAVISION NEUTROPHILS ABSOLUTE COUNT BY MANUAL COUNT 10.6 10*3/uLNormalProBaylor Scott & White Medical Center – Lake PointeComcorewell health greenville hospital on above:Order Comment: See Springboard - Labs Due report.Result Comment: This is an appended report. These results have been appended to a previously preliminary verified report.Performed By: #### CBCA ####[facility] ([facility])[address] [facility] [address], [id number] VIRCELLAVISION NEUTROPHILS RELATIVE PERCENT BY MANUAL COUNT 55 %NormalBellevue Hospital on above:Order Comment: See Beneqboard - Labs Due report.Result Comment: This is an appended report. These results have been appended to a previously preliminary verified report.Performed By: #### CBCA ####[facility] ([facility])[address] [place] [address] AVE.[place], [id number] VIRCELLAVISION NUCLEATED RED BLOOD CELLS IN BLOOD BY LIGHT EGNKLDAGAQ4ZxuymhPccUgnsirBellevue Hospital on above:Order Comment: See [employer] - Labs Due report.Result Comment: This is an appended report. These results have been appended to a previously preliminary verified report.Performed By: #### CBCA ####[facility] ([address], [id number] VIRErythrocyte distribution width (RBC) [Ratio]18.8 %High 11.5-15[facility] on above:Order Comment: See [employer] - Labs Due report.Performed By: #### CBCA ####[facility] ([address], [id number] VIRHematocrit (Bld) [Volume fraction]38.8 %Obj84-61YowFjdaexBellevue Hospital on above:Order Comment: See Beneqboard - Labs Due report.Performed By: #### CBCA ####[facility] ([address], [id number] VIRHemoglobin (Bld) [Mass/Vol]12.7 g/gGBda01-32TspHxbbqtBellevue Hospital on above:Order Comment: See [employer] - Labs Due report.Performed By: #### CBCA ####[facility] ([address], [id number] VIRMCH (RBC) [Entitic mass]29.8 ceOxgqgn27-50ZkcPcjtuqPremier HealthComcorewell health greenville hospital on above: Order Comment: See Springboard - Labs Due report.Performed By: #### CBCA ####[facility] ([facility])[address] [place] [address].[place], [place] VIRMCHC (RBC) [Mass/Vol]32.8 g/dWGmpgmx63-16UckCmzcxrPremier HealthComcorewell health greenville hospital on above:Order Comment: See Springboard - Labs Due report.Performed By: #### CBCA ####[facility] ([facility])[address] [place] [address].[place], [id number] VIRMCV (RBC) [Entitic vol]91 tUBclgfj20-404HpoZacvmbPremier HealthComcorewell health greenville hospital on above:Order Comment: See Springboard - Labs Due report.Performed By: #### CBCA ####[facility] ([address], [id number] VIRPlatelet mean volume (Bld) [Entitic vol]9.9 fLNormal7-12PSumma Health Barberton CampusComcorewell health greenville hospital on above:Order Comment: See Springboard - Labs Due report. Performed By: #### CBCA ####[facility] ([address], [place] VIRPlatelets (Bld) [#/Vol]289 10*3/hBBsgmml848-564 Premier HealthComcorewell health greenville hospital on above:Order Comment: See Springboard - Labs Due report.Performed By: #### CBCA ####[facility] ([address], [place] VIRRBC COUNT4.26 X10E12/LNormal4.1-5.7 [facility] on above:Order Comment: See Springboard - Labs Due report.Performed By: #### CBCA ####[facility] ([facility])[address] [place] [address].[place], [place] VIRWBC (Bld) [#/Vol]18.4 10*3/uLHigh 4-11Premier HealthComment on above:Order Comment: See Springboard - Labs Due report.Performed By: #### CBCA ####[facility] ([facility] [address]SAILAJABOTHWELL REGIONAL HEALTH CENTERBo, [id number] VIRCOMPREHENSIVE METABOLIC PANELon 96-53-1042Injkoqq [Mass/Vol]3.4 g/dLNormal3.2-5.3PSumma Health Barberton Campus Comment on above:Order Comment: See Springboard - Labs Due reportPerformed By: #### CMP ####[facility] ([place] [address] [place] [address] VIRALP [Catalytic activity/Vol]93 U/KUomymz86-432QtwIhqcmbBaylor Scott & White Medical Center – Lake PointeComment on above:Order Comment: See Springboard - Labs Due reportPerformed By: #### CMP ####[facility] ([place] [address] [place] [address] VIRALT [Catalytic activity/Vol]30 U/LNormal<=40 Premier HealthComment on above:Order Comment: See Springboard - Labs Due reportPerformed By: #### CMP ####[facility] ([place] [address] [address] VIRAnion gap [Moles/Vol]6 mmol/LNormal 5-15ProBaylor Scott & White Medical Center – Lake PointeComment on above:Order Comment: See Springboard - Labs Due reportPerformed By: #### CMP ####[facility] ([place] [address] [place] [address] VIRAST [Catalytic activity/Vol]33 U/L Normal<=41Premier HealthComment on above:Order Comment: See Springboard - Labs Due reportPerformed By: #### CMP ####[facility] ([place] [address] [address] VIRBilirubin [Mass/Vol]0.6 mg/dLNormal0.3-1.2PSumma Health Barberton CampusComment on above:Order Comment: See Springboard - Labs Due reportPerformed By: #### CMP ####[facility] ([facility])[address] [place] [address] [place] [address] VIRCalcium [Mass/Vol]8.9 mg/dLNormal8.5-10.5PSumma Health Barberton CampusComment on above: Order Comment: See Springboard - Labs Due reportPerformed By: #### CMP ####[facility] ([facility])[address] [place] [address] AV.[place], [place] [address] VIRChloride [Moles/Vol]102 mmol/SCbqxzk75-255DcpGunppoPremier Health Comment on above:Order Comment: See Springboard - Labs Due reportPerformed By: #### CMP ####[facility] ([address] [place] [address] VIRCO2 [Moles/Vol]28 mmol/CHupebe76-89VdtFuyedfSumma Health Barberton CampusComment on above:Order Comment: See Springboard - Labs Due report Performed By: #### CMP ####[facility] ([address] [place] [address] VIRCreatinine [Mass/Vol]0.82 mg/dLNormal0.70-1.20 Premier HealthComment on above:Order Comment: See Springboard - Labs Due reportResult Comment: METHOD TRACEABLE TO IDMS STANDARDPerformed By: #### CMP ####[facility] ([address] [place] [address] VIREGFR (CKD-EPI) NON-RACE DEPENDENT>^90Normal>=60ProBaylor Scott & White Medical Center – Lake PointeComment on above:Order Comment: See Springboard - Labs Due reportResult Comment: eGFR not reported due to non-numeric value for Creatinine.Reported eGFR is based ontheCKD-EPI 2020 equation that doesnot use a race coefficient. Performed By: #### CMP ####[facility] ([address] [place] [address] VIRGlucose [Mass/Vol]122 mg/xWGwhv36-59IcnXwqfiyPremier HealthComcorewell health greenville hospital on above:Order Comment: See Springboard - Labs Due reportPerformed By: #### CMP ####[facility] ([address] [place] [address] VIRPotassium [Moles/Vol]4.5 mmol/LNormal3.5-5.0 Premier HealthComment on above:Order Comment: See Springboard - Labs Due reportPerformed By: #### CMP ####[facility] ([address] [place] [address] VIRProtein [Mass/Vol]6.9 g/dLNormal 6.0-8.0Premier HealthComcorewell health greenville hospital on above:Order Comment: See Springboard - Labs Due reportPerformed By: #### CMP ####[facility] ([address] [place] [address] VIRSodium [Moles/Vol]136 mmol/LNormal 134-146Premier HealthComcorewell health greenville hospital on above:Order Comment: See Springboard - Labs Due reportPerformed By: #### CMP ####[facility] ([address] [place] [address] VIRUrea nitrogen [Mass/Vol]15 mg/dL Normal5-27ProBaylor Scott & White Medical Center – Lake PointeComment on above:Order Comment: See Springboard - Labs Due reportPerformed By: #### CMP ####[facility] ([address] [place] [address] VIRComprehensive metabolic panelon 61-41-8179Brheidm [Mass/Vol]3.4 g/dL3.2 - 5.3 g/dLProCleveland Clinic Avon Hospital SystemALP [Catalytic activity/Vol]93 U/L39 - 130 U/LProMedica Health SystemALT No additional P-5'-P [Catalytic activity/Vol]30 U/LNINF - 40 U/L [facility] Medical CenterAnion gap [Moles/Vol]6 mmol/L5 - 15 mmol/LPrChildren's Mercy Hospitalica Health SystemAST [Catalytic activity/Vol]33 U/LNINF - 41 U/LProMedica Health SystemBilirubin [Mass/Vol]0.6 mg/dL0.3 - 1.2 mg/dLFairfield Medical Center SystemCalcium [Mass/Vol]8.9 mg/dL8.5 - 10.5 mg/dLFairfield Medical Center SystemChloride [Moles/Vol] 102 mmol/L98 - 109 mmol/LPrYuma District Hospital Health SystemCO2 [Moles/Vol]28 mmol/L22 - 32 mmol/[facility] SystemCreatinine [Mass/Vol]0.82 mg/dL0.70 - 1.20 mg/dL [facility] Medical CenterComment on above:METHOD TRACEABLE TO IDMS STANDARDEGFR Non-Race Dependent- Ballad HealthComment on above:eGFR not reported due to non-numeric value for Creatinine. Reported eGFR is based on the CKD-EPI 2020 equation that does not use a race coefficient. Glucose [Mass/Vol]122 mg/gPHoor03 - 99 mg/dLAdena Pike Medical Center Interpretation and review of laboratory resultsAbnormalAdena Pike Medical Center Potassium [Moles/Vol]4.5 mmol/L3.5 - 5.0 mmol/LPrYuma District Hospital Health SystemProtein [Mass/Vol]6.9 g/dL6.0 - 8.0 g/dLAtrium Health Carolinas Medical Centerodium [Moles/Vol]136 mmol/L134 - 146 mmol/[facility] SystemUrea nitrogen [Mass/Vol]15 mg/dL5 - 27 mg/dLGeisinger-Lewistown HospitalTHYROID PROFILE INCLUDES TSH FT4on 10-11-7028Euog T4 [Mass/Vol]1.07 ng/dLNormal0.61-1.60Premier HealthComment on above:Performed By: #### THYR ####[facility] ([address] VIRTSH2.46 uIU/mLNormal 0.49-4.67Premier HealthComment on above:Performed By: #### THYR ####[facility] ([facility])[address] [place] [id number] VIRThyroid profile includes TSH FT4on 57-67-8759Pxad T4 [Mass/Vol]1.07 ng/dL 0.61 - 1.60 ng/dLAdena Pike Medical CenterInterpretation and review of laboratory resultsNormalAdena Pike Medical CenterTS Qn2.46 m[IU]/LProMedTomah Memorial HospitalCBC AND AUTO DIFFon 73-02-3918Insgqmfrhhu (Bld) [#/Vol] 3.4 10*3/uLHigh0.0-0.4Premier HealthComment on above:Performed By: #### CMP, CBCA, THYR ####[facility] ([id number])[address] [place] [address]Znuubltteyu/100 WBC (Bld)18.0 %Normal Premier HealthComment on above:Performed By: #### CMP, CBCA, THYR ####[facility] ([id number])[address] [place] [address] 11818Zodqcxfgryy distribution width (RBC) [Ratio]17.1 %High 11.5-15.0Premier HealthComment on above:Performed By: #### CMP, CBCA, THYR ####[facility] ([id number])[address] [place] [address]44IEYDAOUT7+AbnormalNONEProMedSouthern Inyo HospitalComment on above:Performed By: #### CMP, CBCA, THYR ####[facility] ([id number])[address] [place] [address]Yczpmerhqu (Bld) [Volume fraction]39.7 %Pxyedx87-51QsqUycoseBaylor Scott & White Medical Center – Lake PointeComment on above: Performed By: #### CMP, CBCA, THYR ####[facility] ([id number])[address] [place] [address] 00517Stwvjiposx (Bld) [Mass/Vol]13.0 g/tNHrssej21.0-17.0ProBaylor Scott & White Medical Center – Lake PointeComment on above:Performed By: #### CMP, CBCA, THYR ####[facility] ([id number])[address] [place] [address]FPVIMSZNXO, ATYPICAL2.0 %NormalProBaylor Scott & White Medical Center – Lake PointeComment on above:Performed By: #### CMP, CBCA, THYR ####[facility] ([id number])[address] [place] [address] Lymphocytes (Bld) [#/Vol]6.4 10*3/uLHigh1.0-3.5ProMedica Plumas District HospitalComment on above:Performed By: #### CMP, CBCA, THYR ####[facility] ([id number])[address] [place] [address]Nuxnquqsidw/100 WBC (Bld)32.0 %NormalPremier HealthComment on above:Performed By: #### CMP, CBCA, THYR ####[facility] ([id number])[address] [place] [address]38[address]QJK (RBC) [Entitic mass]29.4 iyViwkzv29-44 ProMedica Plumas District HospitalComment on above:Performed By: #### CMP, CBCA, THYR ####[facility] ([id number])[address] [place] [address] 220[address]OBHD (RBC) [Mass/Vol]32.7 g/qQWvkuzx87-23PtuRnxgnaBaylor Scott & White Medical Center – Lake PointeComment on above:Performed By: #### CMP, CBCA, THYR ####[facility] ([id number])[address] [place] [address] MCV (RBC) [Entitic vol]90 lUHqyitq43-336DaxCprlauPremier HealthComment on above:Performed By: #### CMP, CBCA, THYR ####[facility] ([id number])[address] [place] [address]Hsdcmisds (Bld) [#/Vol]1.3 10*3/uLHigh0-0.9Premier HealthComcorewell health greenville hospital on above:Performed By: #### CMP, CBCA, THYR ####[facility] ([id number])[address] [place] [address] 57514Rsvwdajkn/100 WBC (Bld)7.0 %Normal ProMNaval Hospital OaklandComment on above:Performed By: #### CMP, CBCA, THYR ####[facility] ([id number])[address] [place] [address]4230Umysriuoinc (Bld) [#/Vol]7.6 10*3/uLHigh1.5-6.6Premier HealthComcorewell health greenville hospital on above:Performed By: #### CMP, CBCA, THYR ####[facility] ([id number])[address] [place] [address] Platelet mean volume (Bld) [Entitic vol]8.5 fLNormal7-12ProMedica Plumas District HospitalComment on above:Performed By: #### CMP, CBCA, THYR ####[facility] ([id number])[address] [place] [address]Aiqdvwkln (Bld) [#/Vol]421 10*3/iSVulymn237-271IgrVnghig [place] HospitalComment on above: Performed By: #### CMP, CBCA, THYR ####[facility] ([id number])[address] [place] [address]XIMXJZSNBOCXD4+AbnormalNONE Premier HealthComment on above:Performed By: #### CMP, CBCA, THYR ####[facility] ([id number])[address] [place] [address]RYR COUNT4.40 X10E12/LNormal4.10-5.70ProBaylor Scott & White Medical Center – Lake PointeComment on above:Performed By: #### CMP, CBCA, THYR ####[facility] ([id number])[address] [place] [address] 55451NVS RAYCYVGPIQ87.0 %NormalPremier HealthComcorewell health greenville hospital on above:Performed By: #### CMP, CBCA, THYR ####[facility] ([id number])[address] [place] [address] 88946LQKXFB9+AbnormalNONEProMedica Plumas District HospitalComment on above:Performed By: #### CMP, CBCA, THYR ####[facility] ([id number])[address] [place] [address] 235[address]QPU (Bld) [#/Vol]18.7 10*3/uLHigh4.0-11.0Premier HealthComcorewell health greenville hospital on above: Performed By: #### CMP, CBCA, THYR ####[facility] ([id number])[address] [place] [address]11[address]QKV auto differentialon 46-24-0820Kqzhsdirgxb (Bld) [#/Vol]3.4 10*3/uLHighKerbs Memorial HospitalMedica Health System Eosinophils/100 WBC (Bld)18 %ProMedica Health SystemErythrocyte distribution width (RBC) [Ratio]17.1 %High11.5 - 15.0 %ProMedica Health SystemFragments LM Ql (Bld)1+AbnormalNONE^NONEProMedica Health SystemHematocrit (Bld) [Volume fraction]39.7 %39 - 49 %ProMedica Health SystemHemoglobin (Bld) [Mass/Vol]13 g/dL13.0 - 17.0 g/dLFairfield Medical Center SystemInterpretation and review of laboratory resultsAbnormalAdena Pike Medical CenterLymphocytes (Bld) [#/Vol]6.4 10*3/uLHighAdena Pike Medical CenterLymphocytes/100 WBC (Bld)32 %[facility]red Hospital DaytonH (RBC) [Entitic mass]29.4 pg27 - 34 pgPPaulding County HospitalMCHC (RBC) [Mass/Vol]32.7 g/dL32 - 36 g/dLProBellevue HospitalMCV (RBC) [Entitic vol]90 fL80 - 100 [facility] CenterMonocytes (Bld) [#/Vol]1.3 10*3/uLHigh [facility] Medical CenterMonocytes/100 WBC (Bld)7 %[facility] Neutrophils (Bld) [#/Vol]7.6 10*3/uLformerly [facility] SystemPlatelet mean volume (Bld) [Entitic vol]8.5 fL7 - 12 [facility] Psychiatric CenterPlatelets (Bld) [#/Vol]421 10*3/uLFairfield Medical Center SystemPolychromasia LM Ql (Bld)1+Abnormal NONE^NONEGalion Hospital Health SystemRBC (Bld) [#/Vol]4.4 10*6/uLAtrium Health Carolinas Medical Centeregmented neutrophils/100 WBC (Bld)41 %[facility] Medical CenterTarget cells LM Ql (Bld)1+AbnormalNONE^[facility] CenterVariant lymphocytes/100 WBC (Bld)2 %[facility] Medical CenterWBC corrected for nucl RBC Auto (Bld) [#/Vol] 18.7HighPsychiatric hospital, demolished 2001 SystemCOMPREHENSIVE METABOLIC PANELon 64-29-6005Qrrfkbf [Mass/Vol]3.4 g/dLNormal3.2-5.3PSumma Health Barberton CampusComment on above:Performed By: #### CMP, CBCA, THYR ####[facility] ([id number])[address],[place], [place] [address]XZZ [Catalytic activity/Vol]78 U/ISavcxw77-454UxjMwqjtrPremier HealthComment on above:Performed By: #### CMP, CBCA, THYR ####[facility] ([id number])[address] [place] [address], [place] [address] [Catalytic activity/Vol]25 U/LNormal0-40ProBaylor Scott & White Medical Center – Lake PointeComment on above: Performed By: #### CMP, CBCA, THYR ####[facility] ([id number])[address] [place] [address], [place] [address]Dwndc gap [Moles/Vol]9 mmol/L Normal5-15ProBaylor Scott & White Medical Center – Lake PointeComment on above:Performed By: #### CMP, CBCA, THYR ####[facility] ([id number])[address] [place] [address], [place] [address]ROT [Catalytic activity/Vol]37 U/LNormal0-41Premier HealthComment on above:Performed By: #### CMP, CBCA, THYR ####[facility] ([id number])[address] [place] [address], [place] [address] Bilirubin [Mass/Vol]0.6 mg/dLNormal0.3-1.2PSumma Health Barberton CampusComment on above:Performed By: #### CMP, CBCA, THYR ####[facility] ([id number])[address] [place] [address], [place] [address]Yrposmk [Mass/Vol] 9.3 mg/dLNormal8.5-10.5PSumma Health Barberton CampusComment on above:Performed By: #### CMP, CBCA, THYR ####[facility] ([id number])[address] [place] [address], [place] [address]Jxasuabe [Moles/Vol]99 mmol/BGmejgb50-477 ProMNaval Hospital OaklandComment on above:Performed By: #### CMP, CBCA, THYR ####[facility] ([id number])[address] [place] [address]NB7 [Moles/Vol]28 mmol/IClgidt42-71VopFuttvo [facility]remont HospitalComment on above:Performed By: #### OG DE LOS [place]ANTOS THYR ####[facility] ([id number])[address] [place] [address] Creatinine [Mass/Vol]1.00 mg/dLNormal0.70-1.20Premier HealthComment on above:Result Comment: METHOD TRACEABLE TO IDMS STANDARDPerformed By: #### OG DE [place] THYR ####[facility] ([id number])[address] [place] [address]RUY/1.73 sq M.predicted among non-blacks MDRD (S/P/Bld) [Vol rate/Area]83 mL/min/{1.73_m2}Normal>59[facility] Comment on above:Result Comment: Reported eGFR is based on theCKD-EPI 2020 equation that doesnot use a race coefficient.Performed By: #### OG DE [place] THYR ####[facility] ([id number])[address] [place] [address]Hcqnfwf [Mass/Vol]121 mg/tVLzqt37-80LfaQzwtnkBaylor Scott & White Medical Center – Lake PointeComment on above:Performed By: #### OG DE [place] THYJessica ####[facility] ([id number])[address] [place] [address] Potassium [Moles/Vol]4.7 mmol/LNormal3.5-5.0Premier HealthComment on above:Performed By: #### OG DE [place]ANTOS, THYR ####[facility] ([id number])[address] [place] [address] 971[address]Txpxmvl [Mass/Vol] 7.4 g/dLNormal6.0-8.0ProMercer County Community Hospitalca Burdett HospitalComment on above:Performed By: #### OG DE [place]ANTOS, THYR ####[facility] ([id number])[address] [place] [address] 17207Kpucgo [Moles/Vol]136 mmol/BVqhvrl230-677 Premier HealthComment on above:Performed By: #### OG DE [place]ANTOS, THYR ####[facility] ([id number])[address] [place] [address] 05453Itdp nitrogen [Mass/Vol]21 mg/dLNormal5-27Premier HealthComment on above:Performed By: #### OG DE LOS SANTOS, THYR ####[facility] ([id number])[address] [place] [address] Comprehensive metabolic panelon 23-49-1433Drwqbhk [Mass/Vol]3.4 g/dL3.2 - 5.3 g/dLGalion Hospital Health SystemALP [Catalytic activity/Vol]78 U/L39 - 130 U/L [facility] CenterALT No additional P-5'-P [Catalytic activity/Vol]25 U/L0 - 40 U/[facility] SystemAnion gap [Moles/Vol]9 mmol/L5 - 15 mmol/L [facility] SystemAST [Catalytic activity/Vol]37 U/L0 - 41 U/[facility] SystemBilirubin [Mass/Vol]0.6 mg/dL0.3 - 1.2 mg/dLFairfield Medical Center System Calcium [Mass/Vol]9.3 mg/dL8.5 - 10.5 mg/dLFairfield Medical Center SystemChloride [Moles/Vol]99 mmol/L98 - 109 mmol/[facility] SystemCO2 [Moles/Vol]28 mmol/L22 - 32 mmol/[facility] SystemCreatinine [Mass/Vol]1 mg/dL0.70 - 1.20 mg/dLAdena Pike Medical CenterComment on above:METHOD TRACEABLE TO IDMS STANDARDeGFR (CKD-EPI)non-race jfbdtvpqo11- Ballad HealthComment on above: Reported eGFR is based on the CKD-EPI 2020 equation that does not use a race coefficient. Glucose [Mass/Vol]121 mg/pPHzkq37 - 99 mg/dLAdena Pike Medical Center Interpretation and review of laboratory resultsAbnormalAdena [facility] Potassium [Moles/Vol]4.7 mmol/L3.5 - 5.0 mmol/[facility] SystemProtein [Mass/Vol]7.4 g/dL6.0 - 8.0 g/dLAtrium Health Carolinas Medical Centerodium [Moles/Vol]136 mmol/L134 - 146 mmol/[facility] HospitalUrea nitrogen [Mass/Vol]21 mg/dL5 - 27 mg/dLGeisinger-Lewistown HospitalTHYROID PROFILEon [id number] T4 [Mass/Vol]1.16 ng/dLNormal0.61-1.60[facility] Comment on above:Performed By: #### MAGALI CBCA, THYR ####[facility] ([id number])[address] [place] [address] [id number] uIU/mLNormal0.49-4.67Premier HealthComment on above:Performed By: #### MAGALI CBCTrang, THYR ####[facility] ([id number])[address] [place] [address] [id number] profile includes TSH FT4on 07-18-2024 Free T4 [Mass/Vol]1.16 ng/dL0.61 - 1.60 ng/dLAdena Pike Medical CenterTS Qn2.57 m[IU]/LPrEncompass Health Rehabilitation Hospital of SewickleyCBC AND AUTO DIFFon [id number] (Bld) [#/Vol]1.6 10*3/uLHigh0.0-0.4Premier HealthComment on above:Performed By: #### CBCA, CMP, THYR ####[facility] ([id number])[address] [place] [id number] Eosinophils/100 WBC (Bld)7.0 %NormalPremier HealthComment on above: Performed By: #### CBCTrang CMP, THYR ####[facility] ([id number])[address] [place] [address] [id number] distribution width (RBC) [Ratio]15.9 %High11.5-15.0Premier HealthComment on above: Performed By: #### CBCA, CMP, THYR ####[facility] ([id number])[address] [place] [address], [place] [address]Lnjrcaahbl (Bld) [Volume fraction]39.0 %Zdnayg01-04JjwVcnjooBaylor Scott & White Medical Center – Lake PointeComment on above:Performed By: #### CBCA, CMP, THYR ####[facility] ([id number])[address] [place] [address] 20030Aqjpujlyhe (Bld) [Mass/Vol]12.9 g/dLLow 13.0-17.0Premier HealthComment on above:Performed By: #### CBCTrang, CMP, THYR ####[facility] ([id number])[address] [place] [address] 69671BMFROLAPSE, ATYPICAL2.0 %[facility] Comment on above:Performed By: #### CBCA, CMP, THYR ####[facility] ([id number])[address] [place] [address] 05760 Lymphocytes (Bld) [#/Vol]5.1 10*3/uLHigh1.0-3.5PSumma Health Barberton CampusComment on above:Performed By: #### CBCA, CMP, THYR ####[facility] ([id number])[address] [place] [address] 72791Ftejkruyzut/100 WBC (Bld)20.0 %NormalProBaylor Scott & White Medical Center – Lake PointeComment on above:Performed By: #### CBCA, CMP, THYR ####[facility] ([id number])[address] [place] [address] 96206AWB (RBC) [Entitic mass]30.0 ndYmoies47-71 Premier HealthComment on above:Performed By: #### CBCA, CMP, THYR ####[facility] ([id number])[address] [place] [address] 43395CGYY (RBC) [Mass/Vol]33.1 g/hOPuzdnc89-78BxmRhcwxiPremier HealthComment on above:Performed By: #### CBCA, CMP, THYR ####[facility] ([id number])[address] [place] [address] 83423 MCV (RBC) [Entitic vol]91 mUFbphwy54-119WzuTfinpnPremier HealthComment on above:Performed By: #### CBCA, CMP, THYR ####[facility] ([id number])[address] [place] [address] 55039Harolltph (Bld) [#/Vol]4.1 10*3/uLHigh0-0.9Premier HealthComment on above:Performed By: #### CBCA, CMP, THYR ####[facility] ([id number])[address] [place] [address] 90452Rxfnxicdk/100 WBC (Bld)18.0 %Normal Premier HealthComment on above:Performed By: #### CBCA, CMP, THYR ####[facility] ([id number])[address] [place] [address] 60796Mauadaycvms (Bld) [#/Vol]12.2 10*3/uLHigh1.5-6.6Premier HealthComment on above:Performed By: #### CBCA, CMP, THYR ####[facility] ([id number])[address] [place] [address], [place] [address] NUCLEATED RBC1.0 /100 WBCNormal0.0-1.0Premier HealthComment on above:Performed By: #### CBCA, CMP, THYR ####[facility] ([id number])[address] [place] [address] 89472Ckcaehvp mean volume (Bld) [Entitic vol]8.5 fLNormal7-12ProMedica Plumas District HospitalComment on above:Performed By: #### CBCA, CMP, THYR ####[facility] ([id number])[address] [place] [address], [place] [address]Revungrsh (Bld) [#/Vol]495 10*3/aPAwgz237-940GgeFjtzhhBaylor Scott & White Medical Center – Lake PointeComment on above: Performed By: #### CBCA, CMP, THYR ####[facility] ([id number])[address] [place] [address], [place] [address]SNG COUNT4.30 X10E12/LNormal 4.10-5.70Premier HealthComcorewell health greenville hospital on above:Performed By: #### CBCA, CMP, THYR ####[facility] ([id number])[address] [place] [address], [place] [address]XBQ morphology finding Nom (Bld)REVIEWEDNormalProBaylor Scott & White Medical Center – Lake PointeComment on above:Performed By: #### CBCA, CMP, THYR ####[facility] ([id number])[address] [place] [address] 97730 SEG YLBDPKAXEE39.0 %NormalProBaylor Scott & White Medical Center – Lake PointeComcorewell health greenville hospital on above:Performed By: #### CBCA, CMP, THYR ####[facility] ([id number])[address] [place] [address], [place] [address]QNE (Bld) [#/Vol]23.0 10*3/uLHigh 4.0-11.0Premier HealthComment on above:Performed By: #### CBCA, CMP, THYR ####[facility] ([id number])[address] [place] [address] 22195FUW auto differentialon 95-64-5290Asjdjfhfkqg (Bld) [#/Vol]1.6 10*3/uLHighAdena Pike Medical CenterEosinophils/100 WBC (Bld)7 % [facility] Medical CenterErythrocyte distribution width (RBC) [Ratio]15.9 %High 11.5 - 15.0 %[facility] Medical CenterHematocrit (Bld) [Volume fraction]39 %39 - 49 %[facility] Medical CenterHemoglobin (Bld) [Mass/Vol]12.9 g/dLLow13.0 - 17.0 g/dLAdena Pike Medical CenterInterpretation and review of laboratory results AbnormalAdena Pike Medical CenterLymphocytes (Bld) [#/Vol]5.1 10*3/uLRiverside Doctors' Hospital WilliamsburgLymphocytes/100 WBC (Bld)20 %[facility] Medical CenterMCH (RBC) [Entitic mass]30 pg27 - 34 [facility] MiamisburgMCHC (RBC) [Mass/Vol]33.1 g/dL32 - 36 g/dLAdena Pike Medical CenterMCV (RBC) [Entitic vol]91 fL80 - 100 fL [facility] Medical CenterMonocytes (Bld) [#/Vol]4.1 10*3/uLformerly [facility] SystemMonocytes/100 WBC (Bld)18 %[facility] Medical CenterNeutrophils (Bld) [#/Vol]12.2 10*3/uLRiverside Doctors' Hospital WilliamsburgNucleated RBC/100 WBC (Bld) [Ratio]1 %[facility]ike Medical CenterPlatelet mean volume (Bld) [Entitic vol]8.5 fL7 - 12 [facility] SystemPlatelets (Bld) [#/Vol]495 10*3/uLRiverside Doctors' Hospital WilliamsburgPolymorphonuclear cells/100 WBC (Bld)REVIEWEDProBellevue HospitalRBC (Bld) [#/Vol]4.3 10*6/uLAtrium Health Carolinas Medical Centeregmented neutrophils/100 WBC (Bld)53 %[facility] SystemVariant lymphocytes/100 WBC (Bld)2 %[facility] SystemWBC corrected for nucl RBC Auto (Bld) [#/Vol]23 HighPsychiatric hospital, demolished 2001 SystemCOMPREHENSIVE METABOLIC PANEL on 48-06-0952Ipxeyql [Mass/Vol]2.9 g/dLLow3.2-5.3PSumma Health Barberton Campus Comment on above:Performed By: #### CBCA, CMP, THYR ####[facility] ([id number])[address] [place] [address], [place] [address]VOS [Catalytic activity/Vol]84 U/WPhitcn24-123JdsJtzkhfPremier HealthComment on above:Performed By: #### CBCA, CMP, THYR ####[facility] ([id number])[address] [place] [address], [place] [address]AJE [Catalytic activity/Vol]23 U/LNormal0-40Premier HealthComment on above: Performed By: #### CBCA, CMP, THYR ####[facility] ([id number])[address] [place] [address] [place] [address]Ekrmw gap [Moles/Vol]11 mmol/L Normal5-15Premier HealthComment on above:Performed By: #### CBCA, CMP, THYR ####[facility] ([id number])[address] [place] [address] [place] [address]ZMI [Catalytic activity/Vol]32 U/LNormal0-41Premier HealthComment on above:Performed By: #### CBCA, CMP, THYR ####[facility] ([id number])[address] [place] [address] [place] [address] Bilirubin [Mass/Vol]0.7 mg/dLNormal0.3-1.2PSumma Health Barberton CampusComment on above:Performed By: #### MAGALI FOLEY, THYR ####[facility] ([id number])[address] [place] [address], [place] [address]Wwlwplw [Mass/Vol] 9.2 mg/dLNormal8.5-10.5PSumma Health Barberton CampusComment on above:Performed By: #### MAGALI FOLEY, THYR ####[facility] ([id number])[address] [place] [address], [place] [address]Jddyyuxj [Moles/Vol]97 mmol/WAdt60-648 Premier HealthComment on above:Performed By: #### MAGALI FOLEY, THYR ####[facility] ([id number])[address] [place] [address], [place] 401[address]OV2 [Moles/Vol]28 mmol/KXpsuso45-33CzyYbwojgSumma Health Barberton CampusComment on above:Performed By: #### MAGALI FOLEY, THYR ####[facility] ([id number])[address] [place] [address], [place] [address] Creatinine [Mass/Vol]0.81 mg/dLNormal0.70-1.20Premier HealthComment on above:Result Comment: METHOD TRACEABLE TO IDMS STANDARDPerformed By: #### MAGALI FOLEY, THYR ####[facility] ([id number])[address] [place] [address] [place] [address]fHLU (CKD-EPI) NON-RACE DEPENDENT>90Normal>59 Premier HealthComment on above:Result Comment: Reported eGFR is based on theCKD-EPI 2020 equation that doesnot use a race coefficient.Performed By: #### MAGALI FOLEY, THYR ####[facility] ([id number])[address] [place] [address], [place] [address]Stgwfbz [Mass/Vol]110 mg/gYCiql77-84 Premier HealthComment on above:Performed By: #### OG, CMP, THYR ####[facility] ([id number])[address] [place] [address] 69447Tbtvqbjbq [Moles/Vol]4.5 mmol/LNormal3.5-5.0Premier HealthComment on above:Performed By: #### CBCTrang CMP, THYR ####[facility] ([id number])[address] [place] [address] 66280 Protein [Mass/Vol]7.6 g/dLNormal6.0-8.0Premier HealthComment on above:Performed By: #### OG CMP, THYR ####[facility] ([id number])[address] [place] [address] 48095Lfprux [Moles/Vol] 136 mmol/YJlrrqk084-605FwkBqhucd Fremont HospitalComment on above:Performed By: #### OG, CMP, THYR ####[facility] ([id number])[address] [place] [address] 17594Nsrw nitrogen [Mass/Vol]16 mg/dLNormal5-27 Premier HealthComcorewell health greenville hospital on above:Performed By: #### OG, CMP, THYR ####[facility] ([id number])[address] [place] [address] 34767Vlcvhfujnnauj metabolic panelon 39-41-8479Ydjcynk [Mass/Vol]2.9 g/dLLow3.2 - 5.3 g/dLProBryan Whitfield Memorial Hospital Health SystemALP [Catalytic activity/Vol]84 U/L39 - 130 U/LProMedica Health SystemALT No additional P-5'-P [Catalytic activity/Vol]23 U/L0 - 40 U/LProMedica Health SystemAnion gap [Moles/Vol]11 mmol/L5 - 15 mmol/LProMedica Health SystemAST [Catalytic activity/Vol]32 U/L0 - 41 U/LProMedica Health SystemBilirubin [Mass/Vol]0.7 mg/dL0.3 - 1.2 mg/dLFairfield Medical Center SystemCalcium [Mass/Vol]9.2 mg/dL8.5 - 10.5 mg/dLFairfield Medical Center SystemChloride [Moles/Vol]97 mmol/LLow98 - 109 mmol/L [facility] Medical CenterCO2 [Moles/Vol]28 mmol/L22 - 32 mmol/[facility] SystemCreatinine [Mass/Vol]0.81 mg/dL0.70 - 1.20 mg/dLAdena Pike Medical Center Comment on above:METHOD TRACEABLE TO IDMO STANDARDeGFR (CKD-EPI)non-race dependent- Ballad HealthComment on above: Reported eGFR is based on the CKD-EPI 2020 equation that does not use a race coefficient. Glucose [Mass/Vol]110 mg/hDJfta45 - 99 mg/dLAdena Pike Medical Center Interpretation and review of laboratory resultsAbnormalAdena Pike Medical Center Potassium [Moles/Vol]4.5 mmol/L3.5 - 5.0 mmol/[facility] SystemProtein [Mass/Vol]7.6 g/dL6.0 - 8.0 g/dLAtrium Health Carolinas Medical Centerodium [Moles/Vol]136 mmol/L134 - 146 mmol/[facility] SystemUrea nitrogen [Mass/Vol]16 mg/dL5 - 27 mg/dLGeisinger-Lewistown HospitalTHYROID PROFILEon 11-37-4198Fxer T4 [Mass/Vol]1.19 ng/dLNormal0.61-1.60Premier Health Comment on above:Performed By: #### CBCA, CMP, THYR ####[facility] ([id number])[address] [place] [address] 35612TPI6.36 uIU/mLNormal0.49-4.67Premier HealthComment on above:Performed By: #### CBCA, CMP, THYR ####[facility] ([id number])[address] [place] [address] 97590Gjptpyu profile includes TSH FT4on 07-05-2024 Free T4 [Mass/Vol]1.19 ng/dL0.61 - 1.60 ng/dLAdena Pike Medical CenterTS Qn2.36 m[IU]/LProMedica Health Guernsey Memorial HospitalBONE MARROWon 06-10-2024 BONE MARROWSEE SEPARATE REPORTNormalHolmes County Joel Pomerene Memorial HospitalComment on above: Result Comment: REVIEWED BY Goran POWER M.D.Performed By: #### SUJIT 21505-3 ####[facility] ([id number])[address] [place] [address] 51749Wcmx cytometry specialist review Nasir (Unsp spec) [Interp]on 08-99-6585UKEH CYTOMETRY BMSEE SEPARATE REPORT, REVIEWED BY PATHOLOGISTNoalHolmes County Joel Pomerene Memorial HospitalComment on above:Performed By: #### SUJIT, 55747-3 ####[facility] ([id number])[address] [place] [address] 09378FI BIOPSY BONE SUPERFICIAL PERCon 78-36-9499GV BIOPSY BONE SUPERFICIAL PERCNormMercy Health Springfield Regional Medical Centerurgical Pathologyon 92-03-1598Ajzyooat PathologyNoOhioHealth Doctors HospitalComment on above:Result Comment: [facility] [address] [place] [address] Surgical Pathology ConsultationPatient Name:YOBANY TORSTEN Kirkland:1955 (Age: 68)Gender:MTaken:06/10/2024Reported:06/16/2024Physician(s):Wallace Prado M.D. ([phone])Copy To:Ulices Caro M.D. Rec. #:[id number]: #[id number] Pathologic Diagnosis1). Bone marrow, aspirate, clot section and core biopsy, leftiliac crest: HyperCellular marrow involved by classic Hodgkin lymphoma (see comment)CommentThe topography, morphology of the infiltrate along with background granuloma/fibrosis, is consistent with Hodgkin lymphoma involvement of bone marrow. Peripheral blood leukocytosis along with increased ESR isconsistent with a cytokine response often seen in patients with classic Hodgkin lymphoma. Report Electronically Signed Outrxd/06/16/2024Peter Power MD Flow Cytometry-Surg/BM/NG Date Reported: 06/16/2024Normal marrow immunophenotyping results.Flow cytometric analysis of the marrow aspirate cells demonstrates maturing hematopoietic elements. Blasts are not increased on CD45/side scatter analysis or CD34 staining. No aberrant patterns of antigen acquisition are identified on maturing myeloid cells.[place] on the lymphoid population demonstrates a mixed population of phenotypically unremarkable T-cells, polyclonal B-cells, and natural killer cells, without a detectable monoclonal population. No significant plasma cell population is identified.Hemodilution artifact seen.Immunophenotyping antibodies tested: CD2, CD3, CD4, CD5, CD7, CD8, CD10, CD13, CD16, CD19, CD20, CD23, CD33, CD34, CD38, CD43, CD45, CD56, CD117,CD123, CD138, TRCB1, [place], and Lambda.Immunophenotyping Comment:Immunophenotyping has been used inthis diagnostic evaluation. This test was developed and its performance characteristics determined by the [facility] Department. It has not been [...] qualified to perform high-complexity clinical testing.Electronically Signed OutPeter Power MDInterpretation performed at [facility] [employer] [facility], [address] [place] [address], License number: [id number].Clinical HistoryBone lesion left ischium, hodgkin lymphoma.Gross DescriptionReceived in formalin labeled Leslie HAYWOOD iliac bone BX is a brown cadena cylindrical segment, 0.5 cm in length and 0.2 cm in diameter. The bone is placed in ImmunoCal for decalcification in cassette A. Also received in the container are cadena-brown possible soft tissue fragments admixed with hemorrhagic material, 0.7 x 0.4 x 0.2 cm in aggregate. These are submitted in cassette B. (2, ns, [id number],m8.1) DM.dm/06/13/2024RXDMicroscopic FindingsANATOMIC SITE: 1. Left iliac Crest aspirate and touch prep, clot and core biopsyCBC: WBC = 18.3 X 10E9/L RBC = 4.23 X 10E12/L HGB = 13.1 g/dL HCT = 39.4% MCV = 93 fL PLATELETS = 409 X 10E9/LESR increased.BLOOD SMEAR: WBC - White blood cells are increased in number with a neutrophilic predominance accompanied by monocytosis and eosinophilia. Reactive changes in the form of toxic granules and vacuoles noted. No increase in blasts seen. No dysplastic changes are seen in the neutrophils. No abnormal lymphocytes present. RBC -RBCs are normal in number, and arenormochromic and normocytic, with moderate anisopoikilocytosis. Circulating NRBCs are not seen. Rouleaux formation is not present. PLT -Platelet count is normal in number, and most platelets are normal in morphology.MARROW ASPIRATE:Adequacy: Inadequate for evaluation with lack of cellular spicules.Sparse fibrinous particle is seen and a limited count is done, from this particle.Myeloid series: Myeloid series show full-spectrum maturation. Blasts are not increased.Erythroid series: Erythroid series is normal in proportion and show normoblastic maturation. Dysplasia is not present.Megakaryocytes: Megakaryocytes are normal in number and show normal maturation. Dysplastic forms are not present.Lymphocytes and plasma cell: Are mildly increased.MARROW DIFFERENTIAL: A 200 cell differential count is performed. Blasts = 1% Promyelocytes = 9% Myelocytes = 12% Metamyelocytes = 18% Segs and Bands = 24% RBC precursors = 22% Lymphocytes = 4% Plasma cells = 3% Monocytes = 3% Eosinophils = 4% Basophils = 0%M:E ratio: 2.91MARROW BIOPSY/CLOT SECTION:Adequacy: Suboptimal for evaluation with a short (<15mm) core biopsy length. Clot sections show evaluable marrow spicules.Cellularity: 50-60%Myeloid series: Myeloid series is normal in proportion and show full-spectrum maturation. Blasts are not increased.Erythroid series: Erythroid series is normal in proportion and show normoblastic maturation. Dysplasia is not present.Megakaryocytes: Megakaryocytes are normal in number and show normal maturation. Dysplastic forms are not present. Loose clusters or tight clusters are not seen.Lymphoid aggregates are identified: The appear to be lymphohistiocytic; in this fibrotic and histiocyte dominating lymphoid aggregate, loose granulomatoid structures are seen. Scattered among these are large mononuclear Hodgkin cells and occasional by nuclear Thierry-Magdi cells.Other cells: Atypical plasma cell aggregates or metastatic carcinoma is not present.Trabecular bone: Normal in appearance.IRON STAIN: Prussian blue stain for iron is non-diagnostic.IMMUNOHISTOCHEMICAL STAINSThe large cells are positive for CD30 and CD15 (subset) with dim PAX5 expression. CD20 is negative. Ki-67 is high especially among the large cells. CD3 highlights background lymphocytes as T cells dominant. Both core biopsy and clot section are stained to characterize the infiltrate, since aspirate and flow cytometry are unr evealing.Specimen(s) Received Left iliac bone biopsyFee Codes(s):1; 71098, 29840, 43272, 54400, 25251(5)CBC AND AUTO DIFFon 35-24-0867Hmeckacxeyi (Bld) [#/Vol]1.4 10*3/uLHigh0.0-0.4ProBaylor Scott & White Medical Center – Lake PointeComment on above: Performed By: #### CMP, CBCA ####[facility] ([id number])[address] [place] [address]89#### 02457-1, 285-1 ####[facility] ([id number])[address] [place] [address], [address] [place] [address] 68[address] Eosinophils/100 WBC (Bld)7.7 %NormalProBaylor Scott & White Medical Center – Lake PointeComment on above: Performed By: #### CMP, CBCA ####[facility] ([id number])[address] [place] [address] 02940#### 81184-2, 2856-1 ####[facility] ([id number])[address], [address] [place] [address] 39432 Erythrocyte distribution width (RBC) [Ratio]16.3 %High11.5-15.0ProBaylor Scott & White Medical Center – Lake PointeComment on above:Performed By: #### CMP, CBCA ####[facility] ([id number])[address] [place] [address] 95112#### 75877-0, 285-1 ####[facility] ([id number])[address], [address] [place] [address] 72606Avslpwvixr (Bld) [Volume fraction]39.4 %Xxrqbk02-60 Pro[facility]umas District HospitalComment on above:Performed By: #### CMP, CBCA ####[facility] ([id number])[address] [place] [address] 81075#### 88285-8, 285- ####[facility] ([id number])[address], [address] [place] [address] 65514Fubunvqrvl (Bld) [Mass/Vol] 13.1 g/xWBkyrli84.0-17.0ProBaylor Scott & White Medical Center – Lake PointeComment on above:Performed By: #### CMP, CBCA ####[facility] ([id number])[address] [place] [address] 67235#### 40996-4, 2856-03 ####[facility] ([id number])[address], [address] [place] [address] 37475LZBBROQHOM, ATYPICAL 12.5 %NormalProBaylor Scott & White Medical Center – Lake PointeComment on above:Performed By: #### CMP, CBCA ####[facility] ([id number])[address] [place] [address] 70313#### 39345-6, 285-1 ####[facility] ([id number])[address], [address] [place] [address] 58760Inqhwjdpxix (Bld) [#/Vol] 5.8 10*3/uLHigh1.0-3.5ProMedica Plumas District HospitalComment on above:Performed By: #### CMP, CBCA ####[facility] ([id number])[address] [place] [address] 98573#### 28022-4, 28509-27 ####[facility] ([id number])[address], [address] [place] [address] 47544Ebkapydjpqf/100 WBC (Bld) 19.2 %NormalProBaylor Scott & White Medical Center – Lake PointeComment on above:Performed By: #### CMP, CBCA ####[facility] ([id number])[address] [place] [address] 08742#### 88719-7, 28509-27 ####[facility] ([id number])[address], [address] [place] [address] 32351IDQ (RBC) [Entitic mass] 30.8 ugHxgoxz32-40VkoMmzsowPremier HealthComment on above:Performed By: #### CMP, CBCA ####[facility] ([id number])[address] [place] [address] 77065#### 43547-2, 2856-03 ####[facility] ([id number])[address], [address] [place] [address] 01431BQBQ (RBC) [Mass/Vol]33.1 g/kNUguvmt57-60TwsTdljgaBaylor Scott & White Medical Center – Lake PointeComment on above:Performed By: #### CMP, CBCA ####[facility] ([id number])[address] [place] [address] 05832#### 51411-6, 2857-1 ####[facility] ([id number])[address], [address] [place] [address] 18549WLK (RBC) [Entitic vol]93 kHFbmtzw54-403ZaoTqdtxx Fremont HospitalComment on above:Performed By: #### CMP, CBCA ####[facility] ([id number])[address] [place] [address] 87816#### 54961-0, 2857-1 ####[facility] ([id number])[address] [facility], [address] [place] [address] 21344Btyzdqtrn (Bld) [#/Vol]3.5 10*3/uLHigh0-0.9ProBaylor Scott & White Medical Center – Lake PointeComment on above:Performed By: #### CMP, CBCA ####[facility] ([id number])[address] [place] [address] 46315#### 90745-1, 285-1 ####[facility] ([id number])[address] [facility] [address] [place] [address] 49928Xarhssmjt/100 WBC (Bld)19.2 %NormalProBaylor Scott & White Medical Center – Lake PointeComment on above:Performed By: #### CMP, CBCA ####[facility] ([id number])[address] [place] [address] 70220#### 40168-8, 2857-1 ####[facility] ([id number])[address] [facility], [address] [place] [address] 24412Eqogwgcabqb (Bld) [#/Vol] 7.6 10*3/uLHigh1.5-6.6ProBaylor Scott & White Medical Center – Lake PointeComment on above:Performed By: #### CMP, CBCA ####[facility] ([id number])[address] [place] [address]99#### [id number], 285-1 ####[facility] ([id number])2[address] [facility], [address] [place] [address] 34247Vyqoqqfa mean volume (Bld) [Entitic vol]8.7 fLNormal7-12ProMedica Plumas District HospitalComment on above: Performed By: #### CMP, CBCA ####[facility] ([id number])[address] [place] [address]3086#### 29497-1, 2856-1 ####[facility] ([id number])[address] [place] [address], [address] [place] [address] 84176Ftbpgbknc (Bld) [#/Vol]409 10*3/kPVkexxv600-832PqrOzpcqy Fremont HospitalComment on above: Performed By: #### CMP, CBCA ####[facility] ([id number])[address] [place] [address] 23591#### 75949-4, 2856-03 ####[facility] ([id number])[address] [place] [address], [address] [place] [address] 99217EQF COUNT4.23 X10E12/LNormal4.10-5.70ProBaylor Scott & White Medical Center – Lake PointeComment on above: Performed By: #### CMP, CBCA ####[facility] ([id number])[address] [place] [address] 10771#### [id number], 2856-03 ####[facility] ([id number])[address] [place] [address], [address] [place] [address] 95900LVT FJCXBTYWNN88.4 %NormalProBaylor Scott & [facility] Lake PointeComment on above:Performed By: #### CMP, CBCA ####[facility] ([id number])[address] [place] [address] 9[address]38#### [id number], 285-1 ####[facility] ([id number])[address], [address] [place] [address] 32645UPP (Bld) [#/Vol]18.3 10*3/uLHigh4.0-11.0ProBaylor Scott & [facility] Center – Lake PointeComment on above:Performed By: #### CMP, CBCA ####[facility] ([id number])[address] [place] [address] 29288#### [id number], 2857-1 ####[facility] ([id number])[facility], [address] [place] [address] 41823PCMOBAJEZNBJL METABOLIC PANELon 40-34-8879Qijehbk [Mass/Vol]3.4 g/dLNormal3.2-5.3ProMedica Plumas District HospitalComment on above:Performed By: #### CMP, CBCA ####[facility] ([id number])[address] [place] [address] 85927#### [id number], 2857-1 ####[facility] ([id number])0 [facility], [address] [place] [address] 68232NFQ [Catalytic activity/Vol]77 U/BLsngyw58-064KmkGkdhbeBaylor Scott & [facility] Center – Lake PointeComment on above:Performed By: #### CMP, CBCA ####[facility] ([id number])[address] [place] [address] 10355#### [id number], 2857-1 ####[facility] ([id number])[address], [address] [place] [address] 28973NXL [Catalytic activity/Vol]20 U/LNormal0-40 ProMedicWestside Hospital– Los AngelesComment on above:Performed By: #### CMP, CBCA ####[facility] ([id number])[address] [place] [address] 81494#### [id number], 2857-1 ####[facility] ([id number])[address] [facility], [address] [place] [address] 48303Oisin gap [Moles/Vol]10 mmol/LNormal5-15ProBaylor Scott & [facility] – Lake PointeComment on above:Performed By: #### CMP, CBCA ####[facility] ([id number])[address] [place] [address] 18515#### 46781-5, 285-1 ####[facility] ([id number])[facility], [address] [place] [address] 91266RHB [Catalytic activity/Vol]31 U/LNormal0-41ProBaylor Scott & [facility] – Lake PointeComment on above: Performed By: #### CMP, CBCA ####[facility] ([id number])[address] [place] [address] 08289#### 78827-8, 285-1 ####[facility] ([id number])0 [facility], [address] [place] [address] 50909Icxaomajf [Mass/Vol]0.5 mg/dLNormal0.3-1.2ProMedSouthern Inyo HospitalComment on above: Performed By: #### CMP, CBCA ####[facility] ([id number])[address] [place] [address] 30620#### 09722-6, 28509-27 ####[facility] ([id number])[address] [facility], [address] [place] [address] 98821 Calcium [Mass/Vol]9.5 mg/dLNormal8.5-10.5ProMedSouthern Inyo HospitalComment on above:Performed By: #### CMP, CBCA ####[facility] ([id number])[address] [place] [address] 50107#### 83641-4, 2857-1 ####[facility] ([id number])[address] [facility], [address] [place] [address] 98182 Chloride [Moles/Vol]99 mmol/HQhocbz81-023EctNszvwhBaylor Scott & White Medical Center – Lake PointeComment on above:Performed By: #### MAGALI CBCA ####[facility] ([id number])[address] [place] [address] 35965#### [id number], 2857-1 ####[facility] ([id number])0 [facility], [address] [place] [address] 65469MO6 [Moles/Vol]28 mmol/WUvoyqa76-03NqhRhlbvc Fremont HospitalComment on above: Performed By: #### BRIDGET DE LOS SANTOSA ####[facility] ([id number])[address] [place] [address] 26377#### 77021-1, 2857-1 ####[facility] ([id number])[address] [facility], [address] [place] [address] 60731 Creatinine [Mass/Vol]0.87 mg/dLNormal0.70-1.20ProBaylor Scott & [facility] Center – Lake PointeComment on above:Result Comment: METHOD TRACEABLE TO IDMO STANDARDPerformed By: #### BRIDGET DE LOS SANTOSA ####[facility] ([id number])[address] [place] [address] 72897#### 78808-1, 2857-1 ####[facility] ([id number])[address] [address]408tKMN (CKD-EPI) NON-RACE DEPENDENT>90Normal>59ProBaylor Scott & White Medical Center – Lake PointeComment on above:Result Comment: Reported eGFR is based on theCKD-EPI 2020 equation that doesnot use a race coefficient.Performed By: #### MAGALI CBCA ####[facility] ([id number])[address] [place] [address] 74305#### 84985-3, 2857-1 ####[facility] ([id number])0 [facility], [address] [place] [address] 89397Dxgrkjh [Mass/Vol]102 mg/vCDqgl41-94PhiBpkwxeBaylor Scott & White Medical Center – Lake PointeComment on above:Performed By: #### CMP, CBCA ####[facility] ([id number])[address] [place] [address] 77428#### 78271-2, 2857-1 ####[facility] ([id number])[address] [place] [address], [address] [place] [address] 14361Mgjbukeav [Moles/Vol]4.5 mmol/LNormal3.5-5.0ProBaylor Scott & [facility] Center – Lake PointeComment on above:Performed By: #### MAGALI, CBCA ####[facility] ([id number])[address] [place] [address] 27752#### 57832-4, 2857-1 ####[facility] ([id number])0 [facility], [address] [place] [address] 58043Iqyahzh [Mass/Vol]7.9 g/dLNormal6.0-8.0 [facility]umas District HospitalComment on above:Performed By: #### CMP, CBCA ####[facility] ([id number])[address] [place] [address] 51364#### 51176-2, 2857-1 ####[facility] ([id number])0 [facility], [address] [place] [address] 83720Tkqult [Moles/Vol]137 mmol/DOdprwk304-976ZadCkprjh [facility]ont HospitalComment on above:Performed By: #### CMP, CBCA ####[facility] ([id number])[address] [place] [address] 66041#### 51238-0, 2857-1 ####[facility] ([id number])[address], [address] [address]Pdfz nitrogen [Mass/Vol]17 mg/dLNormal5-27ProBaylor Scott & [facility] Center – Lake PointeComment on above:Performed By: #### MAGALI CBCA ####[facility] ([id number])[address] [place] [address] 31338#### 24446-7, 2857-1 ####[facility] ([id number])[address], [address] [address]XJG Photometric method (Bld) [Velocity]on 52-07-3123SOP, ERYTHROCYTE SEDIMENTATION RATE92 mm/hHigh0-20 [facility] HospitalComment on above:Performed By: #### MAGALI CBCA ####[facility] ([id number])[address] [place] [address] 79475#### 86539-4, 2857-1 ####[facility] ([id number])[address] [address]Nrueferf specific Ag [Mass/Vol]on 21-00-3892GVR SCREEN0.74 ng/mLNormal0.00-4.00ProBaylor Scott & [facility] Center – Lake PointeComment on above:Result Comment: The method used for this test is Jazzdesker DXI chemiluminescent immunoassay.Values obtained by different assay methodscannot be used interchangeably.Performed By: #### MAGALI, CBCA ####[facility] ([id number])[address] [place] [address] 98227#### 17499-8, 2857-1 ####[facility] ([id number])[address], [address] [place] [address] SKULL TO THIGHon 39-21-4425ERK CT SKULL TO [facility] CenterOffice Visiton 80-92-6895Fuyyvq-up [id number] Torsten Haywood 1955 M Date Provider Department Center 05/25/2024 [facility] Family History Problem Relation Age of Onset Coronary artery disease Father Coronary artery disease Brother Family Status - Relation Status Age at Father Brother Level of Service:[address] [place] OFFICE/OUTPATIENT ESTABLISHED MOD [facility] HospitalOperative Reporton [id number] Report Operative Report Patient: TORSTEN HAYWOOD Age: 68 years Sex: Male : 1955 Associated Diagnoses: None Author: Quin Mas MD Postoperative Information Procedure: Left nasal endoscopy and cautery Preoperative Diagnosis: Acute anterior epistaxis (EOD55-IY R04.0, Working, Medical). Postoperative Diagnosis: Acute anterior epistaxis (NBC07-OM R04.0, Post-Op Diagnosis, Medical). Performed by: Quin Mas MD. Findings: Brisk venous bleeding left anterior superiormost septum. Estimated Blood Loss: 100 ml. [facility] Medical CenterComment on above:Result Comment: Electronically Signed By: Quin Mas MD\.br\Date and Time Signed: 05/05/24 08:22 ESTOperative ReportOperative Report SURGERY DATE: 04/22/2024 PREOPERATIVE DIAGNOSIS: Left anterior epistaxis POSTOPERATIVE DIAGNOSIS: Left anterior epistaxis OPERATION: Nasendoscopy and cautery ANESTHESIA: General endotracheal COMPLICATIONS: None ESTIMATED BLOOD LOSS: 100 cc FINDINGS: Brisk bleeding from the superiormost portion of the left anterior septum near the skull base INDICATIONS: This 68-year-old man presented to the Emergency Department today with bleeding from the left nose. This could not be controlled with either a Merocel or Rhino Rocket packing. He was brought to the Operating Room for treatment and the above findings noted. PROCEDURE: Patient identified in the Holding Area and taken back to the Operating Room, where he was placed in a supine position. After induction of general endotracheal anesthesia, the patient's Rhino Rocket balloon was deflated and removed. There was immediate accumulation of blood in the nasal cavity. The nose was suctioned and the bleeding site traced to the superiormost portion of the left anterior septum. Using suction Bovie the bleeding was controlled, and to minimize the risk of rebleeding a Surgicel was passed into the anterosuperior nasal septum sulcus. There was no further bleeding, including during brisk coughing and elevated blood pressure encountered during the patient's extuba tion. The patient was then awakened and taken to the Recovery Room in good condition. Quin Mas Jr., M.D. ca Dictated: 04/22/2024 [id number] Transcribed: 04/24/2024 cc:Antoine Hobbs M.D.[facility] HospitalComment on above:Result Comment: Electronically Signed By: Chace ESCOBEDO, Quin Lira\.br\Date and Time Signed: 05/05/24 08:21 POL13fz 15-70-397182Jxkvotw made aware.[facility]36on 81-83-138216Noqcvcl's sister in law called to make you aware he had another episode of epistaxis that required a trip to the ED at [facility]. Dr. Mas (ENT) did do cauterization and had him hold the Eliquis for a day or so. Avni wanted to know if he should resume Eliquis 2.5mg (he has been taking 5mg bid). I told her yes until I hear from you. I offered him an apt with you tomorrow but she wanted to wait until his already scheduled apt on 05/25/2024.[facility] CenterED Note-Physicianon 62-69-2122VS Note-PhysicianED Note-Physician Basic Information Time Seen: Shaneka Boucher PA-C 04/22/2024 13:06 Chief Complaint bloody nose since 1100. on bloodthinners. clamp on. took it off for 30 seconds before blood startedtrickling out. History of Present Illness Patient is a 68-year-old male with a history of CAD that is post CABG, factor V Leyden on Eliquis, and hypertension who presents to the ED with epistaxis that began around 1100. Patient states he hasan extensive history of epistaxis that typically does not resolve with ED management. He states he follows with Dr. Mas for ENT was previously had to do cauterization. Patient states he called hisENT office today who advised he come to the ED for further management of care. Patient notes he placed a clamp on his nose with no relief in symptoms. He notes he blew his nose directly prior to onset of the epistaxis. Patient denies any lightheadedness, headache, or changes in vision. Review of Systems A 10 point review of systems is negative except as noted above. Medical and Surgical History: Reviewed and noted Social history: Lives at home Family History: Reviewed. Physical Exam Vitals & Measurements T: 36.5 ???C(Oral) HR: 78(Peripheral) RR: 16 BP: 163/103 SpO2: 99% HT: 185.82 cm WT: 94 kg BMI: 27.22 General: The patient appears well and in no apparent distress. Patient is resting comfortably on cart. Skin: Warm, dry, no pallor noted. Head: Normocephalic, atraumatic Neck: No JVD Eye: PERRLA, EOMI ENT: Moist mucus membranes, moderate consistent bleed from the left posterior nare with blood in the posterior oropharynx Cardiovascular: Regular rate normal peripheral perfusion Respiratory: No respiratory distress no accessory muscle use no obvious audible wheezing Chest Wall: no deformity Musculoskeletal: normal ROM, no deformity, no swelling GI: Soft no obvious distention. No rebound or rigidity. No guarding. No tenderness. Neurological: A&O moves all extremities equal strength and symmetry Psychiatric: Cooperative and appropriate Medical Decision Making Patient is a 68-year-old male with a history of CAD that is post CABG, factor V Leyden on Eliquis, and hypertension who presents to the ED with epistaxis that began around 1100. Patient is symptomatically stable and afebrile. On exam there is a moderate consistent bleed from the left nare with blood in the posterior oropharynx. The patient noted I was instructed to reach out to Dr. Mas on his behalf. I was able to contact Dr. Mas who recommended nasal packing. Our ED and hospital in general does not carry nasal packing material. I then placed a Merocel with TXA with an approximate 80% cessation of the nasal bleeding. Given the patient was still experiencing blood in the posterior oropharynx, a 5.5 cm Rhino Rocket was placed without success. Patient still continued to have a significant amount of bleed. Dr. Maciel was then in contact with Dr. Mas given the extent of the bleed who ultimately decided to take him to the OR for surgical management. Patient and were updated on the results and are agreeable. Patient was transported directly from the ED to the OR. Assessment/Plan Acute anterior epistaxis, (R04.0: Epistaxis)Acute anterior epistaxis, (R04.0: Epistaxis)Recurrent epistaxis Orders: tranexamic acid, 1,000 mg = 10 mL, Injection, Misc, Once, Stop date 04/22/24 15:54:00 EST, STAT, Start date 04/22/24 15:54:00 EST, 04/22/24 15:54:00 EST Basic Metabolic Panel BB Draw & Hold CBC w/ Auto Diff eGFR Extra SST Tube PT & PTT Medications Administered Given Percocet 5 mg-325 mg oral tablet, 1 tab(s), Oral tranexamic acid 100 mg/mL intravenous solution, 1000 mg, Misc Disposition Plan Patient Discharge Condition stable Discharge Disposition OR with Dr. Mas Discharge Prescription List Prescriptions No active prescription medications Follow-up No qualifying data available Attestation Patient seen and evaluated by the physician assistant golf professional. Attending physician was present in the emergency department and supervised care. This visit was performed by both the physician and an APC. I performed all aspects of the MDM as documented. This report was transcribed using voice recognition software. Every effort was made to ensure accuracy, however, inadvertently computerized rn behavioral health mistakes may be present. I performed a substantive part of the MDM during the patient???s E/M visit. I personally made or approved the documented management plan and acknowledge its risk of complications. (Independent Interpretation) My (EKG/X-Ray/US/CT as applicable) interpretation as above. (Discussion) Management/test interpretation discussed with APC. Problem List/Past Medical History Ongoing Adult BMI 38.0-38.9 kg/sq m CAD (coronary artery disease) Chronic anticoagulation Congestive heart failure Factor V Leiden History of asplenia Hodgkin lymphoma HTN (hypertension) Hx of CABG Hyponatremia L (more content not included)...[facility] HospitalComment on above:Result Comment: Electronically Signed By: Citlaly GLEASON, Shaneka Hong\.br\Date and Time Signed: 04/23/2500:34 EST\.br\Electronically Co-Signed By: Freedom Maciel DO\.br\Date and Time Co-Signed: 04/25/24 07:06 ESTMain OR Intraoperative Recordon [id number] OR Intraoperative RecordMain OR Intraoperative Record IntraOp Document Type FT Summary Primary Physician: uQin Mas MD Finalized Date/Time: 04/25/24 10:12:30 Pt. Name: TORSTEN HAYWOOD/Sex: 1955 Male Med Rec #: [id number] Physician: Financial #: [id number] Pt. Type: E Room/Bed: [facility] Admit/Disch: 04/22/24 12:47:39 - 04/22/24 19:00:00 Institution: Case Times FT Entry 1 Patient Times In Room 04/22/24 16:45:00 Out Room 04/22/24 17:21:00 Procedure Times Start 04/22/24 16:56:00 Stop 04/22/24 17:13:00 Anesthesia Times Start 04/22/24 16:45:00 Stop 04/22/24 17:21:00 Last Modified By: Juan YUSUF, Norman Nelson 04/22/24 17:59:36 General Comments: 04/25/24 Chart opened to review and send charges LRoth CSFA Case Attendance FT Entry 1 Entry 2 Entry 3 Case Attendee Quin Mas MD, RN, Norman Levin LPN, Richelle Ho Role Performed Surgeon - Primary Shuttle Car Operator - Primary Scrub - Primary Time In 04/22/24 16:48:00 04/22/24 16:45:00 04/22/24 16:45:00 Time Out 04/22/24 17:21:00 04/22/24 17:21:00 04/22/24 17:21:00 Procedure NASAL CAUTERIZATION NASAL CAUTERIZATION NASAL CAUTERIZATION Comments Last Modified By: Juan YUSUF, Norman Martinez RN, Norman Agudelo RN 04/22/24 17:59:38 04/22/24 17:59:38 04/22/24 17:59:38 Entry 4 Case Attendee Freedom Bruno Role Performed Anesthesiologist Gas Compressor Turbine Operator Time In 04/22/24 16:45:00 Time Out 04/22/24 17:21:00 Procedure NASAL CAUTERIZATION Comments , anesthesia cooler service supervisor Last Modified By: Norman Martinez RN 04/22/24 17:59:38 Perioperative Protocols FT Pre-Care Text: Implements protective measures prior to operative or invasive procedure, confirms identity before the operative or invasive procedure, verifies operative procedure, surgical site, and laterality Entry 1 Procedure(s) NASAL CAUTERIZATION Patient Identity Birthday, ID Band Verified (select at Check, Patient least 2): Participation Consents / H and P Anesthesia Consent, Operative Site Present Verified H&P, Surgery/Procedure Marking Verified Consent Surgical Site Yes Laterality Verified Yes Verified Procedure Verified Yes Correct Patient Yes Position Verified Availability Equipment, Medication Prep Dry n/a Verified (If Applicable) PreOp Antibiotic No Time Out Quin Mas MD, Given Participants Freedom Bruno, Ollie HAMMER, Richelle Ho, Norman Martinez RN Time Out Complete 04/22/24 16:55:00 Outcomes Met? Yes Last Modified By: Norman Martinez RN 04/22/24 17:51:33 Post-Care Text: The patient is free from signs and symptoms of injury caused by extraneous objects Allergy Information FT Pre-Care Text: Verifies allergies Entry 1 Allergies Reviewed? Yes Allergies Reviewed Self/Patient With Outcomes Met? Yes Last Modified By: Norman Martinez RN 04/22/24 17:51:40 Post-Care Text: The patient received appropriate medication(s) safely administered during the perioperative period Surgical Procedures FT Entry 1 Procedure Description Procedure NASAL CAUTERIZATION Surgeon Description Left nasal endoscopy and cauterization Primary Procedure Yes Primary Surgeon Quin Mas MD Start 04/22/24 16:56:00 Stop 04/22/24 17:13:00 Anesthesia Type General Surgical Service ENT Wound Class 2 - Clean-Contaminated Last Modified By: Norman Martinez RN 04/22/24 18:00:19 General Case Data FT Pre-Care Text: Classifies surgical wound, implements aseptic technique, initiates traffic control Entry 1 Case Information OR Chair 2 FT Case Level Level 2 Wound Class 2 - Clean-Contaminated Specialty ENT ASA Class 3 Preop Diagnosis left nasal epistaxis Postop Same As Preop Yes Postop Diagnosis left nasal epistaxis Outcomes Met? Yes Last Modified By: Norman Martinez RN 04/25/24 07:19:41 Post-Care Text: The patient is free from signs and symptoms of infection Skin Assessment (Pre Procedure) FT Pre-Care Text: Implements protective measures to prevent skin/ tissue injury due to thermal or mechanical sources Evaluates for signs and symptoms of physical injury to skin and tissue Entry 1 Skin Integrity Warm, [place] Skin Abnormality Yes Abnormality Location Left nasal bleeding Outcomes Met? Yes around left nasal rhino rocket- bright red blood Last Modified By: Norman Martinez RN 04/22/24 17:54:27 Post-Care Text: The patient is free from signs and symptoms of injury caused by extraneous objects Patient Positioning FT Pre-Care Text: Identifies physical alterations that require additional precautions for procedure-specific positioning, verifies presence of prosthetics or corrective devices, positions the patient, evaluates the patient for signs and symptoms of injury as a result of positioning Entry 1 Procedure NASAL CAUTERIZATION Body Position Supine Feet Uncrossed? Yes Left Arm Position Extended on Padded Arm Board Right Arm Position Tucked and Padded at Left Leg Position Extended Side (more content not included)...[facility] HospitalInpatient Patient Summaryon [id number] Patient SummaryInpatient Patient Summary [place] [id number] [facility] Clinical Discharge Instructions PERSON INFORMATION Name: TORSTEN HAYWOOD [facility]#:[id number] PHYSICIANS Admitting Physician: Attending Physician: Freedom Maciel DO PCP: Antoine Hobbs MD Discharge Diagnosis: Recurrent epistaxis Comment: PATIENT EDUCATION INFORMATION Instructions: Post Op Patient Instructions - FT (Custom) (CUSTOM); Nosebleed, Adult, Cnms-bh-Xqac Medication Leaflets: Follow up: With: Address: When: Quin Mas [address] [place] [id number] [employer] (1) In 5 days 04/27/2024 Comments: Call [phone] on Thursday for Appt MEDICATION LIST Medications to Continue with No Changes Other Medications acetaminophen (acetaminophen 500 mg Tab) 2 Tablets By Mouth every 6 hours. as needed. amiodarone (amiodarone 200 mg Tab) 1 Tablets By Mouth every day. apixaban (Eliquis 5 mg oral tablet) 1 Tablets By Mouth 2 times a day. atorvastatin (atorvastatin 20 mg Tab) 1 Tablets By Mouth every day. bumetanide (bumetanide 1 mg Tab) 1 Tablets By Mouth 2 times a day. Refills: 0. calcium-vitamin D (Calcium 600+D) Take one daily. digoxin (digoxin 250 mcg (0.25 mg) Tab) 1 Tablets By Mouth every day. docusate (Colace 100 mg Cap) 1 Tablets By Mouth once a day (at bedtime). magnesium chloride 400mg orally daily. metoprolol (metoprolol succinate 25 mg ER Tab) 0.5 Tablets By Mouth every day. Refills: 0. mirtazapine (mirtazapine 15 mg Tab) TAKE 1 TABLET BY MOUTH AT BEDTIME. Refills: 0. Misc Prescription (Handicap Ismael, 5 years.) Handicap Ismael, 5 years.. Refills: 0. ondansetron (Zofran 4 mg Tab) 1 Tablets By Mouth every 8 hours. as needed for nausea/vomiting from chemo. potassium chloride (potassium chloride 20 mEq ER Tab) 1 Tablets By Mouth every day. prochlorperazine (Compazine 10 mg oral tablet) 25 Milligram By Mouth 3 times a day. as needed for milder nausea. Comment:[facility] HospitalOutpatient Surgery Discharge Instructionon [id number] Surgery Discharge InstructionOutpatient Surgery Discharge Instruction [place] [id number] Patient Discharge Instructions PERSON INFORMATION Name: TORSTEN HAYWOOD Date of : 1955 Current Date: 04/23/2024 01:34:14 PHYSICIANS Admitting Physician: Discharge Diagnosis: Recurrent epistaxis TORSTEN HAYWOOD has been given the following list of follow-up instructions, prescriptions, and patient education materials: PATIENT FOLLOW-UP INFORMATION Diet: Regular Discharge Activity: Expect mild pain, Expect minimal amount of drainage and/or bleeding, Activity as tolerated Discharge Restrictions: No driving for 24 hrs Call Your Doctor For: Persistent or heavy bleeding Additional Instructions: Hold eliquis till seen in office IF UNABLE TO CONTACT YOUR PHYSICIAN AND YOU FEEL IT IS AN EMERGENCY, GO TO THE NEAREST EMERGENCY ROOM OR CALL 911 YOBANY Diaz THOMAS D, have received the attached patient education materials/instructions and have verbalized understanding: May we do a follow up call? Yes No I was present when discharge instructions were given Patient Signature Date Clinican/Nurse Signature Date Follow up: With: Address: When: [facility] [employer] [address] [place] [address] Business (1) In 5 days 04/27/2024 Comments: Call [phone] on Thursday for Appt Pharmacy Information: You may receive a survey from [employer] asking you to rate your care experience. Your feedback is important and will help us understand what we do well and how we can improve the quality of care we provide to you, your loved ones and our community. It???s an honor to serve you. Thank you for choosing [facility] HERE ARE THE MEDICATION CHANGES THAT OCCURRED DURING YOUR HOSPITAL STAY Medications to Continue with No Changes Other Medications acetaminophen (acetaminophen 500 mg Tab) 2 Tablets By Mouth every 6 hours. as needed. amiodarone (amiodarone 200 mg Tab) 1 Tablets By Mouth every day. apixaban (Eliquis 5 mg oral tablet) 1 Tablets By Mouth 2 times a day. atorvastatin (atorvastatin 20 mg Tab) 1 Tablets By Mouth every day. bumetanide (bumetanide 1 mg Tab) 1 Tablets By Mouth 2 times a day. Refills: 0. calcium-vitamin D (Calcium 600+D) Take one daily. digoxin (digoxin 250 mcg (0.25 mg) Tab) 1 Tablets By Mouth every day. docusate (Colace 100 mg Cap) 1 Tablets By Mouth once a day (at bedtime). magnesium chloride 400mg orally daily. metoprolol (metoprolol succinate 25 mg ER Tab) 0.5 Tablets By Mouth every day. Refills: 0. mirtazapine (mirtazapine 15 mg Tab) TAKE 1 TABLET BY MOUTH AT BEDTIME. Refills: 0. Misc Prescription (Handicap Placpeggy, 5 years.) Handicap Placpeggy, 5 years.. Refills: 0. ondansetron (Zofran 4 mg Tab) 1 Tablets By Mouth every 8 hours. as needed for nausea/vomiting from chemo. potassium chloride (potassium chloride 20 mEq ER Tab) 1 Tablets By Mouth every day. prochlorperazine (Compazine 10 mg oral tablet) 25 Milligram By Mouth 3 times a day. as needed for milder nausea. PATIENT EDUCATION INFORMATION Instructions: Nosebleed, Adult A nosebleed is when blood comes out of the nose. Nosebleeds are common and can be caused by many things. They are usually not a sign of a serious medical problem. Follow these instructions at home: When you have a nosebleed: ??? Sit down. ??? Tilt your head forward a little. ??? Follow these steps: 1. Pinch your nose with a clean towel or tissue. 2. Keep pinching your nose for 5 minutes. Do not let go. 3. After 5 minutes, let go of your nose. 4. Keep doing these steps until the bleeding stops. ??? Do not put tissues or other things in your nose to stop the bleeding. ??? Avoid lying down or putting your head back. ??? Use a nose spray decongestant as told by your doctor. After a nosebleed: ??? Try not to blow your nose or sniffle for several hours. ??? Try not to strain, lift, or bend at the waist for several days. ??? Aspirin and medicines that thin your blood make bleeding more likely. If you take these medicines: ? Ask your doctor if you should stop taking them or if you should change how much you take. ? Do not stop taking the medicine unless your doctor tells you to. ??? If your nosebleed was caused by dryness, use hgkz-bah-qbymppx saline nasal spray or gel and a humidifier as told by your doctor. This will keep the inside of your nose moist and allow it to heal.If you need to use nasal spray or gel: ? Choose one that is water-s (more content not included)...NormalMer[facility] w/ Auto Diffon [id number] (Bld) [#/Vol]0.2 E9/LNormal 0.0-0.2FProMedica Toledo HospitalComment on above:Performed By: #### [id number] ####[address] [address] Eosinophils (Bld) [#/Vol]1.3 E9/LHigh0.0-0.5FProMedica Toledo HospitalComment on above:Performed By: #### [id number] ####[address] [address]Wpicthyuama/100 WBC (Bld)7.0 %Normal 0.0-8.0[facility] MemorialComment on above:Performed By: #### [id number] ####[address] [address] Erythrocyte distribution width (RBC) [Ratio]16.1 %High10.9-14.2FProMedica Toledo HospitalComment on above:Performed By: #### [id number] ####[address], [place] [address]Atedgnecnj (Bld) [Volume fraction]39.8 %Lnltbi32.7-49.0[facility] MemorialComment on above:Performed By: #### [id number] ####[address] [address]Oommmgmdbu (Bld) [Mass/Vol]13.2 g/dLLow13.5-17.5 [facility] MemorialComment on above:Performed By: #### [id number] ####[address] [address] Lymphocytes (Bld) [#/Vol]7.8 E9/LHigh1.0-4.0[facility] MemorialComment on above:Performed By: #### [id number] ####[address] [address]Ykabopmzbsu/100 WBC (Bld)30.0 %Normal 14.0-50.0[facility] MemorialComment on above:Performed By: #### [id number] ####[address] [address]CRW (RBC) [Entitic mass]33.0 glYpyjro14.0-34.0[facility] MemorialComment on above:Performed By: #### [id number] ####[address] [address]YMKC (RBC) [Mass/Vol]33.1 g/nOUrjfng90.4-36.0[facility] MemorialComment on above:Performed By: #### [id number] ####[address] [address]SGK (RBC) [Entitic vol]99.8 nUUkivoi06.0-100.0[facility] MemorialComment on above: Performed By: #### [id number] ####[address] [address]Rgqvntdak (Bld) [#/Vol]2.3 E9/LHigh0.2-1.0[facility] MemorialComment on above:Performed By: #### [id number] ####[address] [address]Llvcnamykap (Bld) [#/Vol]7.4 E9/LInvalid Interpretation CodeKettering Health Greene MemorialComment on above:Performed By: #### [id number] ####Sweet [address] [address]Nsgkmocn mean volume (Bld) [Entitic vol]8.5 fL Normal6.4-10.8[facility] MemorialComment on above:Performed By: #### [id number] ####[address] [address]Aubciywgt (Bld) [#/Vol]366.0 E9/TAdgxwd825.0-500.0[facility] MemorialComment on above:Performed By: #### [id number] ####[address] [address]OMY (Bld) [#/Vol]4.0 E12/LLow 4.3-5.9[facility] MemorialComment on above:Performed By: #### [id number] ####[address] [address] Segmented neutrophils/100 WBC (Bld)39.0 %Iqghln59.0-75.0[facility] MemorialComment on above:Performed By: #### [id number] ####[address] [address]Xiyvklr lymphocytes/100 WBC (Bld)11.0 %High0.0-0.0[facility] MemorialComment on above:Performed By: #### [id number] ####[address] [address]WBI corrected for nucl RBC Auto (Bld) [#/Vol]19.0 E9/LHigh4.0-11.0[facility] MemorialComment on above:Performed By: #### [id number] ####[facility] [address] [place] [address]Gndxvfiej Instructionson [id number] InstructionsDischarge Instructions TORSTEN HAYWOOD [place] :1955 Visit Date:04/22/2024 Inpatient Discharge Instructions Reason for Your Visit bloody nose since 1100. on bloodthinners. clamp on. took it off for 30 seconds before blood startedtrickling out. Your Diagnosis Acute anterior epistaxis, Acute anterior epistaxis Epistaxis This Is Your Medications [place] [facility] [place] (Handicap Placpeggy, 5 years.) acetaminophen (acetaminophen 500 mg Tab) amiodarone (amiodarone 200 mg Tab) apixaban (Eliquis 5 mg oral tablet) atorvastatin (atorvastatin 20 mg Tab) bumetanide (bumetanide 1 mg Tab) calcium-vitamin D (Calcium 600+D) digoxin (digoxin 250 mcg (0.25 mg) Tab) docusate (Colace 100 mg Cap) magnesium chloride metoprolol (metoprolol succinate 25 mg ER Tab) mirtazapine (mirtazapine 15 mg Tab) ondansetron (Zofran 4 mg Tab) potassium chloride (potassium chloride 20 mEq ER Tab) prochlorperazine (Compazine 10 mg oral tablet) Procedure History Colonoscopy (11/16/2019), CABG x 5 - Coronary artery bypass grafts x 5, Cholecystectomy, Splenectomy. Discharge Vitals Temperature (Temporal Artery) 36.3 ???C Heart Rate (Monitored) 64 Respiratory Rate 14 Blood Pressure 125/79 Height 185.82 cm Weight 94 kg BMI 27.22 What to do next Instructions From Your Doctor Event Name Event Result Discharge Instructions Freetext Hold eliquis till seen in office Discharge Activity Expect mild pain, Expect minimal amount of drainage and/or bleeding, Activity as tolerated Discharge Restrictions No driving for 24 hrs Discharge Diet(s) Regular Call Your Doctor For Persistent or heavy bleeding Discharge Instructions Discharge Instructions New Follow Up Appointments after Discharge Follow Up with Quin Mas When: In 5 days 04/27/2024 EST Comments: Call [phone] on Thursday for Appt Where: [address] [place] [address]- [employer] (1) Medications What How Much When Why Instructions Next Dose Unchanged acetaminophen (acetaminophen 500 mg Tab) 2 [...] Tablets By Mouth Every day Unchanged mirtazapine (mirtazapine 15 mg Tab) See instructions TAKE 1 TABLET BY MOUTH AT BEDTIME Unchanged Misc Prescription (Handicap Ismael, 5 years.) See instructions Congestive heart failure Hyponatremia Hx of CABG HTN (hypertension) CAD (coronary artery disease) BMI 26.0-26.9,adult Overweight Nonsmoker Uses walker [employer]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 Unchanged ondansetron (Zofran 4 mg Tab) 1 Tablets By Mouth Every 8 hours as needed for nausea/ vomiting from chemo Unchanged potassium chloride (potassium chloride 20 mEq ER Tab) 1 Tablets By Mouth Every day Unchanged prochlorperazine (Compazine 10 mg oral tablet) 25 Milligram By Mouth 3 times a day as needed for milder nausea Test Results CBC BMP WBC: 19 E9/L High (04/22/24 16:05:00) Glucose Lvl: 98 mg/dL (04/22/24 16:05:00) RBC: 4 E12/L Low (04/22/24 16:05:00) BUN: 24 mg/dL High (04/22/24 16:05:00) HGB: 13.2 gm/dL Low (04/22/24 16:05:00) Creatinine: 0.7 mg/dL (04/22/24 16:05:00) Hct: 39.8 % (04/22/24 16:05:00) BUN/Creat Ratio: 34 High (04/22/24 16:05:00) MCV: 99.8 fL (04/22/24 16:05:00) Sodium Lvl: 140 mmol/L (04/22/24 16:05:00) MCH: 33 pg (04/22/24 16:05:00) Potassium Lvl: 4 mmol/L (04/22/24 16:05:00) MCHC: 33.1 gm/dL (04/22/24 16:05:00) Chloride: 104 mmol/L (04/22/24 16:05:00) RDW: 16.1 % High (04/22/24 16:05:00) CO2: 29 mmol/L (04/22/24 16:05:00) Platelet: 366 E9/L (04/22/24 16:05:00) AGAP: 11 mEq/L (04/22/24 16:05:00) MPV: 8.5 fL (04/22/24 16:05:00) Calcium Lvl: 9.5 mg/dL (04/22/24 16:05:00) Allergies No Known Allergies No Known Medication [...] elevated Tubular adenoma of colon Uses walker Historical - Any problem that you are no longer receiving treatment for. Car (more content not included)...[facility] HospitalComment on above:Result Comment: Electronically Signed By: Luis YUSUF, Susan Hathaway\.odilia\Date and Time Signed: 04/22/24 17:48 ESTInterdisciplinary Note - Nursingon 04-22-2024 Interdisciplinary Note - NursingInterdisciplinary Note - Nursing pt pacemaker, [employer] interpreted per device, fax sent with interpretation sent to [facility] fax. made aware received fax.[facility] OR PACU I Recordon [id number] OR PACU I RecordMain OR PACU I Record PACU Phase I Document Type FT Summary Primary Physician: Quin Mas MD Finalized Date/Time: 04/22/24 18:14:57 Pt. Name: YOBANYTORSTEN D.O.B./Sex: 1955 Male Med Rec #: [id number] Physician: Financial #: [id number] Pt. Type: E Room/Bed: 03/30 Admit/Disch: 04/22/24 12:47:39 - Institution: Case Times PACU I FT Pre-Care Text: Identifies barriers to communication and implements measures to provide psychological support Develops individualized plan of care, and ensures continuity of care Maintains patient's dignity and privacy, and maintains patient confidentiality Identifies and reports philosophical, cultural, and spiritual beliefs and values Identifies individual values and wishes concerning care Implements aseptic technique, and administers prescribed antibiotic therapy and immunizing agents as ordered Evaluates postoperative tissue perfusion Implements thermoregulation measures, and monitors body temperature Evaluates postoperative respiratory status Evaluates postoperative cardiac status Evaluates postoperative neurological status Assesses pain control, collaborated in initiating patient-controlled analgesia and implements alternative methods of pain control Verifies allergies, administers prescribed medications and solutions, evaluates response to medications Entry 1 In PACU I 04/22/24 17:23:00 Discharge from PACU 04/22/24 17:53:00 I Outcomes Met? Yes Last Modified By: Caterina Kurtz RN 04/22/24 18:14:38 Post-Care Text: The patient demonstrates knowledge of the expected response to the operative or invasive procedure The patient's care is consistent with the individualized perioperative plan of care The patient's rightto privacy is maintained The patient's value system, lifestyle, ethnicity, and culture are considered, respected, and incorporated into the perioperative plan of care The patient participates in decisions affecting his or her perioperative plan of care The patient is free from signs and symptoms of infection The patient has wound/tissue perfusion consistent with or improved from baseline levels established preoperatively The patient is at or returning to normothermia at the conclusion of the immediate postoperative period The patient's respiratory function is consistent with or improved from baseline levels established preoperativelyThe patient's cardiovascular status is consistent with or improved from baseline levels established preoperatively The patient's cardiovascular status is consistent with or improved from baseline levels established preoperatively The patient demonstrates and/or reports adequate pain control throughout the perioperative period The patient received appropriate medication(s), safely administered during the perioperativeperiod Acuity Level PACU I FT Entry 1 Start Time 04/22/24 17:23:00 Stop Time 04/22/24 17:53:00 Acuity Level Acuity Level I Last Modified By: Caterina Kurtz RN 04/22/24 18:14:54 Finalized By: Caterina Kurtz RN Document Signatures Signed By: Caterina Kurtz RN 04/22/24 18:14NormalKettering Health Greene MemorialMain OR PACU II Recordon [id number] OR PACU II RecordMain OR PACU II Record PACU Phase II Document Type FT Summary Primary Physician: Quin Mas MD Finalized Date/Time: 04/22/24 18:41:38 Pt. Name: TORSTEN HAYWOOD /Sex: 1955 Male Med Rec #: [id number] Physician: Financial #: [id number] Pt. Type: E Room/Bed: Admit/Disch: 04/22/24 12:47:39 - Institution: Case Times PACU II FT Pre-Care Text: Identifies barriers to communication and implements measures to provide psychological support and determines knowledge level Develops individualized plan of care, and ensures continuity of care Maintains patient's dignity and privacy, and maintains patient confidentiality Identifies and reports philosophical, cultural, and spiritual beliefs and values Identifies individual values and wishes concerning care administers prescribed antibiotic therapy and immunizing agents as ordered, Evaluates postoperative tissue perfusion Implements thermoregulation measures, and monitors body temperature Evaluates postoperative respiratory statusEvaluates postoperative cardiac status Evaluates postoperative neurological status Assesses pain control, collaborated in initiating patient-controlled analgesia and implements alternative methods of pain control Verifies allergies, administers prescribed medications and solutions, evaluates response to medications Entry 1 In PACU II 04/22/24 18:00:00 Discharge from PACU 04/22/24 19:00:00 II Outcomes Met? Yes Last Modified By: Susan Smith RN 04/22/24 18:41:37 Post-Care Text: The patient demonstrates knowledge of the expected response to the operative or invasive procedure The patient's care is consistent with the individualized perioperative plan of care The patient's rightto privacy is maintained The patient's value system, lifestyle, ethnicity, and culture are considered, respected, and incorporated into the perioperative plan of care The patient participates in decisions affecting his or her perioperative plan of care. The patient is free from signs and symptoms of infection The patient has wound/tissue perfusion consistent with or improved from baseline levels established preoperatively The patient is at or returning to normothermia at the conclusion of the immediate postoperative period The patient's respiratory function is consistent with or improved from baseline levels established preoperativelyThe patient's cardiovascular status is consistent with or improved from baseline levels established preoperatively The patient's neurological status is consistent with or improved from baseline levels established preoperatively The patient demonstrates and/or reports adequate pain control throughout the perioperative period The patient received appropriate medication(s), safely administered during the perioperativeperiod Finalized By: Susan Smith RN Document Signatures Signed By: Susan Smith RN 04/22/24 18:41NoPomerene HospitalMain OR Preoperative Recordon [id number] OR Preoperative RecordMain OR Preoperative Record PreOp Document Type FT Summary Primary Physician: Quin Mas MD Finalized Date/Time: 04/22/24 17:50:07 Pt. Name: TORSTEN HAYWOOD/Sex: 1955 Male Med Rec #: [id number] Physician: Financial #: [id number] Pt. Type: E Room/Bed: [place] [address] Admit/Disch: 04/22/24 12:47:39 - Institution: Case Times PreOp FT Pre-Care Text: Verifies consent for planned procedure, identifies individual values and wishes concerning care, includes family members in perioperative teaching Entry 1 Patient Times. In Pre Surgery 04/22/24 16:20:00 Out Pre Surgery 04/22/24 16:43:00 Outcomes Met? Yes Last Modified By: Norman Martinez RN 04/22/24 17:50:06 Post-Care Text: The patient participates in decisions affecting his or her perioperative plan of care Finalized By: Norman Martinez RN Document Signatures Signed By: Norman Martinez RN 04/22/24 17:50[facility] AND AUTO DIFFon [id number] (Bld) [#/Vol]0.7 10*3/uLHigh0.0-0.4ProBaylor Scott & White Medical Center – Lake PointeComment on above:Performed By: #### CBCA ####[facility] ([id number])[address] [place] [address]#### 09545-6, CMP, 3084-1 ####[facility] ([id number])[address] [place] [address]Akvqkgutxre/100 WBC (Bld)5.8 %NormalProBaylor Scott & White Medical Center – Lake PointeComment on above:Performed By: #### CBCA ####[facility] ([id number])[address] [place] [address]#### 61412-3, CMP, 308-1 ####[facility] ([id number])[address], [address] [place] [address]20[address]Onqfmxhkruz distribution width (RBC) [Ratio]17.5 % High11.5-15.0ProBaylor Scott & White Medical Center – Lake PointeComment on above:Performed By: #### CBCA ####[facility] ([id number])[address] [place] [address]#### 63305-4, CMP, 308- ####[facility] ([id number])[address], [address] [place] [address]NHHAPMQS1+AbnormalNONE [facility] HospitalComment on above:Performed By: #### CBCA ####[facility] ([id number])[address] [place] [address]#### 48419-3, CMP, 308-1 ####[facility] ([id number])[address], [address] [place] [address] 186[address]Pqqccwpaqx (Bld) [Volume fraction]34.7 %Low 39-49ProBaylor Scott & White Medical Center – Lake PointeComment on above:Performed By: #### CBCA ####[facility] ([id number])[address] [place] [address]#### 94316-9, CMP, 3084-1 ####[facility] ([id number])[address], [address] [place] [address]Zqhyjfrxou (Bld) [Mass/Vol] 11.7 g/dLLow13.0-17.0ProBaylor Scott & White Medical Center – Lake PointeComment on above:Performed By: #### CBCA ####[facility] ([id number])[address] [place] [address]#### 73616-7, CMP, 308-1 ####[facility] ([id number])[address], [address] [place] [address]RHSUDRWBSZ, ATYPICAL 14.6 %NormalProBaylor Scott & White Medical Center – Lake PointeComment on above:Performed By: #### CBCA ####[facility] ([id number])[address] [place] [address]#### 99840-3, CMP, 3084-1 ####[facility] ([id number])[address], [address] [place] [address]Dpafvkggkfg (Bld) [#/Vol] 5.5 10*3/uLHigh1.0-3.5ProMedica [facility] District HospitalComment on above:Performed By: #### CBCA ####[facility] ([id number])[address] [place] [address]#### 11791-4, CMP, 3084-1 ####[facility] ([id number])[address] [address]Hhlouqnmbxx/100 WBC (Bld)31.1 %NormalProBaylor Scott & White Medical Center – Lake PointeComment on above:Performed By: #### CBCA ####[facility] ([id number])[address] [place] [address]#### 62796-4, CMP, 308-1 ####[facility] ([id number])[address] [address]GBD (RBC) [Entitic mass] 35.0 vpWzdv42-07NgjGetlwzBaylor Scott & White Medical Center – Lake PointeComment on above:Performed By: #### CBCA ####[facility] ([id number])[address] [place] [address]#### 12834-8, CMP, 308- ####[facility] ([id number])[address] [address]ADDL (RBC) [Mass/Vol]33.8 g/jTVmxbqo38-56BumDujhblBaylor Scott & White Medical Center – Lake PointeComment on above:Performed By: #### CBCA ####[facility] ([id number])[address] [place] [address]#### 16941-2, CMP, 308- ####[facility] ([id number])[address] [address]GJJ (RBC) [Entitic vol]104 tKIkvm60-189KmuHqwplwBaylor Scott & White Medical Center – Lake PointeComment on above:Performed By: #### CBCA ####[facility] ([id number])[address] [place] [address]#### 76191-6, CMP, 308- ####[facility] ([id number])[address] [address]Yuafdvlkr (Bld) [#/Vol]1.4 10*3/uLHigh0-0.9ProBaylor Scott & White Medical Center – Lake PointeComment on above:Performed By: #### CBCA ####[facility] ([id number])[address] [place] [address]#### 71551-3, CMP, 3084-1 ####[facility] ([id number])[address], [place] [address]Worcnkpge/100 WBC (Bld) 11.7 %NormalProBaylor Scott & White Medical Center – Lake PointeComment on above:Performed By: #### CBCA ####[facility] ([id number])[address] [place] [address]#### 60946-5, CMP, 308-1 ####[facility] ([id number])[address], [address] [place] [address]Clkxkzfgjhl (Bld) [#/Vol] 4.4 10*3/uLNormal1.5-6.6ProBaylor Scott & White Medical Center – Lake PointeComment on above:Performed By: #### CBCA ####[facility] ([id number])[address] [place] [address]#### 70882-2, CMP, 308-1 ####[facility] ([id number])[address], [address] [place] [address] 565[address]RLBGZZATE0+ AbnormalNONEProMedica Plumas District HospitalComment on above:Performed By: #### CBCA ####[facility] ([id number])[address] [place] [address]#### 87101-2, CMP, 3084-1 ####[facility] ([id number])[address], [address] [place] [address]Mojpadke mean volume (Bld) [Entitic vol]8.3 fLNormal7-12Pro[facility] HospitalComment on above: Performed By: #### CBCA ####[facility] ([id number])[address] [place] [address]#### 38480-6, CMP, 3084-1 ####[facility] ([id number])[address], [address] [place] [address] Platelets (Bld) [#/Vol]420 10*3/oQKwlthv163-950QyzAuacjp [facility] HospitalComment on above:Performed By: #### CBCA ####[facility] ([id number])[address] [place] [address]#### 43917-7, CMP, 3084-1 ####[facility] ([id number])[address], [address] [place] [address] 65771QRCMQIFPQWURX4+AbnormalNONEPTerrebonne General Medical Centerica Plumas District HospitalComment on above: Performed By: #### CBCA ####[facility] ([id number])[address] [place] [address] 24748#### 24053-0, CMP, 3084-1 ####[facility] ([id number])[address], [address] [place] [address] 79282TSU COUNT3.35 X10E12/LLow4.10-5.70ProBaylor Scott & White Medical Center – Lake PointeComment on above: Performed By: #### CBCA ####[facility] ([id number])[address] [place] [address] 63242#### 30420-5, CMP, 3084-1 ####[facility] ([id number])[address], [address], [place] [address]IYZ PABYYEMVTQ75.8 %NormalProBaylor Scott & White Medical Center – Lake PointeComment on above:Performed By: #### CBCA ####[facility] ([id number])[address] [place] [address] 10144#### 07125-9, CMP, 3084-1 ####[facility] ([id number])[address], [address], [place] [address]LPL (Bld) [#/Vol]12.0 10*3/uLHigh4.0-11.0ProBaylor Scott & White Medical Center – Lake PointeComment on above:Performed By: #### CBCA ####[facility] ([id number])[address] [place] [address] 13655#### 19212-5, CMP, 3084-1 ####[facility] ([id number])[address], [address] [place] [address] 13595CIKSBMSXQTSWJ METABOLIC PANELon 25-93-6960Htvswcx [Mass/Vol]3.8 g/dLNormal3.2-5.3ProMedica Plumas District HospitalComment on above:Performed By: #### CBCA ####[facility] ([id number])[address] [place] [address] 27833#### 30150-3, CMP, [facility]4-1 ####[facility] ([id number])[address], [address] [place] [address] 72040IQC [Catalytic activity/Vol]69 U/PGqhzji92-530FruFkchpzBaylor Scott & White Medical Center – Lake PointeComment on above:Performed By: #### CBCA ####[facility] ([id number])[address] [place] [address] 47568#### 49365-4, CMP, 3084-1 ####[facility] ([id number])[address], [address], [place] [address]NMN [Catalytic activity/Vol]16 U/LNormal0-40 [facility]dett HospitalComment on above:Performed By: #### CBCA ####[facility] ([id number])[address] [place] [address] 66603#### 92340-2, CMP, 308- ####[facility] ([id number])[address], [address], [place] [address]Zvhbj gap [Moles/Vol]11 mmol/LNormal5-15 Premier HealthComment on above:Performed By: #### CBCA ####[facility] ([id number])[address] [place] [address] 66852#### 73387-3, CMP, 308- ####[facility] ([id number])[address], [address], [place] [address]YBI [Catalytic activity/Vol]28 U/LNormal 0-41[facility]umas District HospitalComment on above:Performed By: #### CBCA ####[facility] ([id number])[address] [place] [address] 01325#### 03108-7, CMP, 308- ####[facility] ([id number])[address], [address], [place] [address]Kgzlrvdqr [Mass/Vol]0.4 mg/dLNormal0.3-1.2PSumma Health Barberton CampusComment on above:Performed By: #### CBCA ####[facility] ([id number])[address] [place] [address] 27584#### 93245-0, CMP, 308- ####[facility] ([id number])[address], [address], [place] [address]Rkysazh [Mass/Vol]9.2 mg/dLNormal8.5-10.5Pro[facility] Burdett HospitalComment on above:Performed By: #### CBCA ####[facility] ([id number])[address] [place] [address] 38657#### 98959-3, CMP, 3084-1 ####[facility] ([id number])[address], [address], [place] [address]Xzdsgptj [Moles/Vol]104 mmol/EAjvpys43-888UtqNotvwpBaylor Scott & White Medical Center – Lake PointeComment on above:Performed By: #### CBCA ####[facility] ([id number])[address] [place] [address] 99286#### 54227-2, CMP, 3084-1 ####[facility] ([id number])[address], [address] [place] [address] 85466XF4 [Moles/Vol]26 mmol/L Srifiq05-69EueQzjuva Plumas District HospitalComment on above:Performed By: #### CBCA ####[facility] ([id number])[address] [place] [address] 84735#### 66422-6, CMP, 3084-1 ####[facility] ([id number])[address], [address] [place] [address] 43286Jmdnfdctsl [Mass/Vol]0.75 mg/dLNormal0.60-1.30ProBaylor Scott & White Medical Center – Lake PointeComment on above:Result Comment: METHOD TRACEABLE TO IDMS STANDARDPerformed By: #### CBCA ####[facility] ([id number])[address] [place] [address] 12061#### 42162-2, CMP, 3084-1 ####[facility] ([id number])[address], [address], [place] [address]uVPR (CKD-EPI) NON-RACE DEPENDENT>90Normal>59 [facility]dett HospitalComment on above:Result Comment: Reported eGFR is based on theCKD-EPI 2020 equation that doesnot use a race coefficient.Performed By: #### CBCA ####[facility] ([id number])[address] [place] [address] 13709#### 30756-7, [facility], 3084-1 ####[facility] ([id number])[address], [address] [place] [address] 79897Tzsbcvh [Mass/Vol]109 mg/yEExwu27-83PiyXkesdoBaylor Scott & White Medical Center – Lake PointeComment on above:Performed By: #### CBCA ####[facility] ([id number])[address] [place] [address] 21974#### 76279-2, [facility], 3084- ####[facility] ([id number])[address], [address] [place] [address] 33249Hiclursxy [Moles/Vol]4.0 mmol/LNormal3.5-5.0ProBaylor Scott & White Medical Center – Lake PointeComment on above: Performed By: #### CBCA ####[facility] ([id number])[address] [place] [address] 90594#### 17793-5, [facility], 308-1 ####[facility] ([id number])[address], [address] [place] [address] 52354 Protein [Mass/Vol]6.7 g/dLNormal6.0-8.0ProBaylor Scott & White Medical Center – Lake PointeComment on above:Performed By: #### CBCA ####[facility] ([id number])[address] [place] [address] 40471#### 87030-8, CMP, 3084-1 ####[facility] ([id number])[address], [address], [place] [address]Esfhlc [Moles/Vol]141 mmol/OBbjhnx690-665QvnExhiza Fremont HospitalComment on above:Performed By: #### CBCA ####[facility] ([id number])[address] [place] [address] 82256#### 14812-3, CMP, 3084-1 ####[facility] ([id number])[address], [address] [place] [address] 66859Igwh nitrogen [Mass/Vol]17 mg/dLNormal5-27[facility] Comment on above:Performed By: #### CBCA ####[facility] ([id number])[address] [place] [address] 20978#### 67595-0, [facility], [facility]4- ####[facility] ([id number])[address], [address] [place] [address] 23100KPL Photometric method (Bld) [Velocity]on 88-20-6953CAS, ERYTHROCYTE SEDIMENTATION RATE33 mm/hHigh0-20ProBaylor Scott & White Medical Center – Lake PointeComment on above:Performed By: #### CBCA ####[facility] ([id number])[address] [place] [address] 17230#### 12683-9, [facility], [facility]4 ####[facility] ([id number])[address], [address] [place] [address] 58332EZ BIOPSY BONE SUPERFICIAL PERCon 54-00-0009MH BIOPSY BONE SUPERFICIAL PERCNormalProBaylor Scott & White Medical Center – Lake PointePROTIME AND INRon 50-93-6353DHL Coag (PPP) [Relative time]1.1 {INR}Normal0.8-1.1ProMedica Plumas District HospitalComment on above: Performed By: #### PINR ####[facility] ([id number])[address] [place] [address] 06436JT Coag (PPP) [Time]12.4 sNormal9.8-13.2 [facility]dett HospitalComment on above:Result Comment: NEW REFERENCE RANGE Performed By: #### PINR ####[facility] ([id number])[address] [place] [address] 20594Vugqtmki Pathologyon 95-30-6302Dpvsdzkz PathologyNormalProMedica Plumas District HospitalComment on above:Result Comment: [facility] [address] [place] [address] Surgical Pathology ConsultationPatient Name:TORSTEN HAYWOOD:1955 (Age: 68)Gender:MTaken:03/10/2024eported:03/18/2024hysician(s):Sydnie Garcia ([phone])Copy To:Arabella Guerrero [facility] Centeression #:[id number]. Rec. #:[id number]: #[id number] Pathologic Diagnosis Left ischium bone: Unremarkable bone. No maligancy identified. Report Electronically Signed Outssi/03/18/2024Sujeff Bartlett M.[place] [address], License number: [id number].Clinical HistoryHodgkin lymphoma of intrapelvic lymph nodes, unspecified Hodgkin lymphoma type C81.96.Bone lesion M89.9.Gross DescriptionReceived in formalin labeled YOBANY, left ischium is a 0.7 x 0.4 cm yellow-cadena bone core with no attached soft tissue. The specimen is filtered and entirely submitted in 1 cassette, following brief decalcification in Rapid Sarah [facility]. (1, ns, [id number], m1) MWmxw/03/11/2024NSKSpecimen(s) Received Left ischiumFee Codes(s):1; 73686, 42474MOCX ACIDon 08-36-5328Bnbpp [Mass/Vol]4.3 mg/dLNormal2.6-7.2Pro[facility] District HospitalComment on above:Performed By: #### CBCA ####[facility] ([id number])[address] [place] [address]#### 55609-8, CMP, 3084-1 ####[facility] ([id number])[address] [facility], [address], [place] [address]Koehul Visiton 02-22-2024 Follow-up [id number] Torsten Haywood 1955 M Date Provider Department Center 02/22/2024 FRANCISCO LEE Family History Problem Relation Age of Onset Coronary artery disease Father Coronary artery disease Brother Family Status - Relation Status Age at Father Brother Level of Service:30459 [place] OFFICE/OUTPATIENT ESTABLISHED MOD M[facility] [address] [facility] THIGHon 11-89-0502VNL CT SKULL TO [facility]36on 14-83-459305Ojmtnfl was seen in [facility] on 02/13 and today at [facility] ED for epistaxis. He is on Eliquis for afib and Factor V. He hasn't taken Eliquis since Thursday morning, when the first epistaxis began. Sister in law called to let us know [facility] advised him to resume it, but to check with you also. She asked if he should maybe take Eliquis once daily. I told her NO. I told her to do as the ED physician advised until hearing from you. I know he sees oncology/hematology and suggested she ask their office as well. Ok to resume Eliquis as per advice? ThanksNormalUniMansfield Hospital36 on 96-80-836395Pyjullf called and states he is having nosebleeds and wanted you to be aware and if he should continue with Eliquis. Please advise.NormalSumma HealthTelephoneon 02-15-2024 [id number] Torsten Haywood 1955 M Date Provider Department Center 02/15/2024 241-TRI, [facility] Family History Problem Relation Age of Onset Coronary artery disease Father Coronary artery disease Brother Family Status - Relation Status Age at Father BrotherNormalUniversity of Baptist Saint Anthony'S HospitalCBC AND AUTO DIFFon 02-09-2024 ABSOLUTE BASOPHIL0.1 X10E9/LNormal0.0-0.2Pro[facility] District HospitalComment on above:Performed By: #### MAGALI, 3084-1, CBCA ####[facility] ([id number])[address] [place] [address] 86436#### 19244-6 ####[facility] ([id number])[address] [place] [address], [address] [place] [address] 04575Dbgcoiqfy/100 WBC (Bld)1.0 %NormalProBaylor Scott & White Medical Center – Lake PointeComment on above:Performed By: #### MAGALI, 3084-, CBCA ####[facility] ([id number])[address] [place] [address] 88797#### 36488-7 ####[facility] ([id number])[address] [place] [address], [address] [place] [address] 93179Tjmldzgtoga (Bld) [#/Vol]0.2 10*3/uLNormal0.0-0.4ProBaylor Scott & White Medical Center – Lake PointeComment on above:Performed By: #### MAGALI, 3084-, CBCA ####[facility] ([id number])[address] [place] [address] 27681#### 11510-0 ####[facility] ([id number])[address] [place] [address], [address] [place] [address] 64713Okqxkvroaey/100 WBC (Bld)2.0 %NormalProBaylor Scott & White Medical Center – Lake PointeComment on above:Performed By: #### MAGALI, 3084-, CBCA ####[facility] ([id number])[address] [place] [address] 30530#### 29666-4 ####[facility] ([id number])[address] [place] [address], [address] [place] [address] 25840Tsthqbqrsii distribution width (RBC) [Ratio]17.1 %High 11.5-15.0ProBaylor Scott & White Medical Center – Lake PointeComment on above:Performed By: #### MAGALI, 308-1, CBCA ####[facility] ([id number])[address] [place] [address] 90185#### 31764-4 ####[facility] ([id number])[address] [place] [address], [address] [place] [address] 33360Kapfsrhkyu (Bld) [Volume fraction]41.8 %Aojaoe34-24CpgHvgypnBaylor Scott & White Medical Center – Lake PointeComment on above:Performed By: #### MAGALI, 3083-, CBCA ####[facility] ([id number])[address] [place] [address] 65017#### 38669-3 ####[facility] ([id number])[address] [place] [address], [address] [place] [address] 41003Csxxiidcjm (Bld) [Mass/Vol]14.0 g/xKLoifap26.0-17.0ProBaylor Scott & White Medical Center – Lake PointeComment on above: Performed By: #### MAGALI, 3083-, CBCA ####[facility] ([id number])[address] [place] [address] 27342#### 27205-1 ####[facility] ([id number])[address] [place] [address], [address] [place] [address] 67439HJOQEQ-PPLEA BODY1+AbnormalNONEProMedica Plumas District HospitalComment on above: Performed By: #### MAGALI, 3083-, CBCA ####[facility] ([id number])[address] [place] [address] 26606#### 93416-2 ####[facility] ([id number])[address], [address] [place] [address] 75808CMUAVUROWR, ATYPICAL4.0 %NormalProBaylor Scott & White Medical Center – Lake PointeComment on above: Performed By: #### MAGALI, 3084-1, CBCA ####[facility] ([id number])[address] [place] [address] 53905#### 86021-8 ####[facility] ([id number])[address], [address], [place] [address]Ajgmbrykxvg (Bld) [#/Vol]4.4 10*3/uLHigh1.0-3.5[facility] Comment on above:Performed By: #### MAGALI, 3084-1, CBCA ####[facility] ([id number])[address] [place] [address] 27031#### 95467-6 ####[facility] ([id number])[address] [facility], [address] [place] [address] 40836Fmjgwfuoojf/100 WBC (Bld)40.0 %NormalProBaylor Scott & White Medical Center – Lake PointeComment on above:Performed By: #### MAGALI, 308-, CBCA ####[facility] ([id number])[address] [place] [address] 31908#### 65248-4 ####[facility] ([id number])[address], [address], [place] [address]JOS (RBC) [Entitic mass]35.3 qwAmmb55-06VsgUeatnoBaylor Scott & White Medical Center – Lake PointeComment on above:Performed By: #### MAGALI, 3084-1, CBCA ####[facility] ([id number])[address] [place] [address] 42147#### 15250-5 ####[facility] ([id number])[address] [facility], [place] [address]KNRH (RBC) [Mass/Vol]33.4 g/hOZxamfi37-59MulEtahyaBaylor Scott & White Medical Center – Lake PointeComment on above:Performed By: #### MAGALI, 3084-1, CBCA ####[facility] ([id number])[address] [place] [address] 23449#### 80895-0 ####[facility] ([id number])[address] [facility], [address], [place] [address]ECO (RBC) [Entitic vol] 106 mBIrna45-810VsmNzuqliBaylor Scott & White Medical Center – Lake PointeComment on above:Performed By: #### MAGALI, 3084-1, CBCA ####[facility] ([id number])[address] [place] [address] 92790#### 83261-5 ####[facility] ([id number])[address] [facility], [address] [place] [address] 10181Pbwbgypou (Bld) [#/Vol] 2.0 10*3/uLHigh0-0.9Premier HealthComment on above:Performed By: #### MAGALI, 3084-1, CBCA ####[facility] ([id number])[address] [place] [address] 97926#### 52589-2 ####[facility] ([id number])[address] [facility], [address], [place] [address]Urkefvgsi/100 WBC (Bld) 20.0 %NormalProBaylor Scott & White Medical Center – Lake PointeComment on above:Performed By: #### MAGALI, 3084-1, CBCA ####[facility] ([id number])[address] [place] [address] 67006#### 04046-1 ####[facility] ([id number])[address], [address], [place] [address]Yhygecqfapp (Bld) [#/Vol] 3.3 10*3/uLNormal1.5-6.6ProBaylor Scott & White Medical Center – Lake PointeComment on above:Performed By: #### MAGALI, 3084-1, CBCA ####[facility] ([id number])[address] [place] [address] 61451#### 43641-3 ####[facility] ([id number])[address] [facility], [address] [place] [address] 10557UQPUGRWNT RBC3.0 /100 WBCHigh0.0-1.0ProBaylor Scott & White Medical Center – Lake PointeComment on above:Performed By: #### MAGALI, 3084-1, CBCA ####[facility] ([id number])[address] [place] [address] 60707#### 69446-2 ####[facility] ([id number])[address] [facility], [address] [place] [address] 96575Uskhawvv mean volume (Bld) [Entitic vol]9.7 fLNormal7-12[facility] District HospitalComment on above: Performed By: #### MAGALI, 3084-1, CBCA ####[facility] ([id number])[address] [place] [address] 71960#### 20310-4 ####[facility] ([id number])[address] [facility], [address] [place] [address] 12183Qfiuavdoq (Bld) [#/Vol]310 10*3/fYVwatpg828-769TpyCeytes [facility] Hospital Comment on above:Performed By: #### MAGALI, 3084-1, CBCA ####[facility] ([id number])[address] [place] [address] 73885#### 42672-5 ####[facility] ([id number])[address], [place] [address]JCZ COUNT3.95 X10E12/LLow4.10-5.70ProBaylor Scott & [facility]inte Comment on above:Performed By: #### MAGALI, 3084-1, CBCA ####[facility] ([id number])[address] [place] [address] 45550#### 36247-1 ####[facility] ([id number])[address], [place] [address]UWM morphology finding Nom (Bld)REVIEWEDNormalProBaylor Scott & White Medical Center – Lake PointeComment on above:Performed By: #### MAGALI, 3084-1, CBCA ####[facility] ([id number])[address] [place] [address] 95610#### 73126-7 ####[facility] ([id number])[address], [place] [address]HDB XSSHOUHTIG36.0 %Normal [facility] District HospitalComment on above:Performed By: #### MAGALI, 3084-, CBCA ####[facility] ([id number])[address] [place] [address] 87389#### 87553-3 ####[facility] ([id number])[address], [place] [address]TMY (Bld) [#/Vol]10.0 10*3/uLNormal4.0-11.0Premier HealthComment on above:Performed By: #### MAGALI, 3084-1, CBCA ####[facility] ([id number])[address] [place] [address] 37008#### 09592-2 ####[facility] ([id number])[address] [place], [place] [address]UMDUWCXRSRYXZ METABOLIC PANELon 89-62-0368Soepolz [Mass/Vol]3.3 g/dLNormal3.2-5.3Pro[facility] District HospitalComment on above:Performed By: #### MAGALI, 3084-1, CBCA ####[facility] ([id number])[address] [place] [address] 19947#### 15790-4 ####[facility] ([id number])[address] [facility], [address], [place] [address]TTC [Catalytic activity/Vol]59 U/NHuwiif74-876EmhVsuklxBaylor Scott & White Medical Center – Lake PointeComment on above:Performed By: #### MAGALI, 3084-1, CBCA ####[facility] ([id number])[address] [place] [address] 26546#### 31611-4 ####[facility] ([id number])[address] [facility], [address], [place] [address]WUQ [Catalytic activity/Vol]23 U/LNormal0-40ProBaylor Scott & [facility] – Lake PointeComment on above: Performed By: #### MAGALI, 3084-1, CBCA ####[facility] ([id number])[address] [place] [address] 33891#### 93186-8 ####[facility] ([id number])[address], [place] [address]Sdnll gap [Moles/Vol]8 mmol/LNormal5-15ProBaylor Scott & [facility] – Lake PointeComment on above:Performed By: #### MAGALI, 3084-1, CBCA ####[facility] ([id number])[address] [place] [address]3397#### [id number] ####[facility] ([id number])[address], [address], [place] [address]OSP [Catalytic activity/Vol]31 U/LNormal0-41[facility] Comment on above:Performed By: #### MAGALI, 3084-1, CBCA ####[facility] ([id number])[address] [place] [address]20[address]#### [id number] ####[facility] ([id number])[address], [address], [place] [address]Rcsnvcvls [Mass/Vol]0.5 mg/dLNormal0.3-1.2PSumma Health Barberton CampusComment on above:Performed By: #### MAGALI, 3084-1, CBCA ####[facility] ([id number])[address] [place] [address]84#### 30672-9 ####[facility] ([id number])[address], [address], [place] [address]Bfestvy [Mass/Vol]9.4 mg/dLNormal8.5-10.5PSumma Health Barberton CampusComment on above:Performed By: #### MAGALI, 3084-, CBCA ####[facility] ([id number])[address] [place] [address] 76709#### 67717-1 ####[facility] ([id number])[address], [address], [place] [address]Wvxjjszd [Moles/Vol]100 mmol/EFlnwbi11-117KcnEtgkodBaylor Scott & White Medical Center – Lake PointeComment on above:Performed By: #### MAGALI, 3084-, CBCA ####[facility] ([id number])[address] [place] [address]6428#### 53206-1 ####[facility] ([id number])[address], [place] [address]TZ5 [Moles/Vol]29 mmol/NTvcgbo58-65KmjSrbmoe Plumas District HospitalComment on above:Performed By: #### MAGALI, 308-, CBCA ####[facility] ([id number])[address] [place] [address]#### 33580-6 ####[facility] ([id number])[address], [address] [place] [address]14[address]Zzfxxavkaf [Mass/Vol] 0.79 mg/dLNormal0.70-1.20ProBaylor Scott & [facility] – Lake PointeComment on above:Result Comment: METHOD TRACEABLE TO IDMS STANDARDPerformed By: #### MAGALI, 3083-, CBCA ####[facility] ([id number])[address] [place] [address]856#### 42663-8 ####[facility] ([id number])[address] [place] [address] 13224jSIE (CKD-EPI) NON-RACE DEPENDENT>90Normal>59ProBaylor Scott & White [facility] Center – Lake PointeComment on above:Result Comment: Reported eGFR is based on theCKD-EPI 2020 equation that doesnot use a race coefficient.Performed By: #### MAGALI, 308-, CBCA ####[facility] ([id number])[address] [place] [address] 23880#### 20734-3 ####[facility] ([id number])[address] [address] [place] [address] 50344Fteudkh [Mass/Vol]111 mg/cAZtjr67-25DlmYnihhzBaylor Scott & White Medical Center – Lake PointeComment on above:Performed By: #### MAGALI, 308-, CBCA ####[facility] ([id number])[address] [place] [address] 50181#### 22723-2 ####[facility] ([id number])[address], [address] [place], [place] [address]Ccfujaovk [Moles/Vol]4.2 mmol/LNormal3.5-5.0ProBaylor Scott & White [facility] Center – [facility] Pointe Comment on above:Performed By: #### MAGALI, 3084-1, CBCA ####[facility] ([id number])[address] [place] [address] 75962#### 52210-7 ####[facility] ([id number])[address], [address], [place] [address]Mmnhmhf [Mass/Vol]6.1 g/dLNormal6.0-8.0ProBaylor Scott & White Medical Center – Lake PointeComment on above:Performed By: #### MAGALI, 3084-1, CBCA ####[facility] ([id number])[address] [place] [address] 72816#### 71474-7 ####[facility] ([id number])[address], [address], [place] [address]Lgssqd [Moles/Vol]137 mmol/SQokzfy090-246RlsJvikcr [facility]remont HospitalComment on above:Performed By: #### MAGALI, 3084-1, CBCA ####[facility] ([id number])[address] [place] [address] 73995#### 48549-6 ####[facility] ([id number])[address], [address] [place], [place] [address]Btao nitrogen [Mass/Vol]15 mg/dLNormal5-27ProBaylor Scott & White Medical Center – Lake PointeComment on above:Performed By: #### MAGALI, 3084-1, CBCA ####[facility] ([id number])[address] [place] [address] 86633#### 37109-1 ####[facility] ([id number])[address] [facility], [address] [place] [address] 32632FWZ Photometric method (Bld) [Velocity]on 55-49-3135SDP, ERYTHROCYTE SEDIMENTATION RATE8 mm/hNormal0-20 [facility] HospitalComment on above:Performed By: #### MAGALI, 3084-1, CBCA ####[facility] ([id number])[address] [place] [address] 12472#### 26716-1 ####[facility] ([id number])[address] [place] [address], [address] [address]GSQG ACIDon 81-82-7450Mhlwk [Mass/Vol]4.5 mg/dLNormal2.6-7.2ProMedica [facility] District HospitalComment on above: Performed By: #### MAGALI, 3084-1, CBCA ####[facility] ([id number])[address] [place] [address] 15303#### 43567-0 ####[facility] ([id number])[address] [place] [address] 08261Cmfndmhgst Visit Summaryon 31-07-1141Oiwygxeazv Visit SummaryAmbulatory Visit Summary TORSTEN HAYWOOD :1955 Visit Date:02/04/2024 Ambulatory Visit Instructions Your Diagnosis BMI 27.0-27.9,adult Overweight Nonsmoker Polyneuropathy, unspecified Unspecified atrial fibrillation Hodgkin lymphoma, unspecified, unspecified site Your Care Team Attending Physician - Antoine Hobbs MD Primary Care Physician - Antoine Hobbs MD This Is Your Medications List [facility] Prescription (Keron Guevara, 5 years.) acetaminophen (acetaminophen [...] Follow-Up Appointments Thursday 8:00 AM EST Where: [place] [phone]- Medications What How Much When Why Instructions [...] you for choosing us for your care. [facility] Medicine Office/Clinic Noteon 64-92-1468Sgdsdb Medicine Office/Clinic NoteFavalley springs behavioral [facility] Medicine Office/Clinic Note Chief Complaint Follow-up and management of Hodgkin's Lymphoma and associated conditions HPI Staff Torsten is a 68 year old male presenting for hospital follow up from september Hospital: [facility] Admission date: 09/30/23 Discharge date: 10/10/23 Symptoms the patient presented with: norovirus, had a full chemo treatment and diarrhea hit so got tested and had noro Current concerns: flu: done 01/05/24 questions/concerns: History of Present Illness The patient is a 68-year-old male presenting for follow-up and management of Hodgkin's Lymphoma andassociated conditions. The patient has been undergoing treatment [...] the chemotherapeutic regimen, and reports having tried rsiv-elp-gpjrrjg B-complex vitamins upon suggestion. The patient's history also includes atrial fibrillation managed with amiodarone, with past episodesof significant lymphadenopathy and shortness of breath requiring [...] level of consciousness appropriate for age, CN II- XII intact, motor strength equal & normal bilaterally, [...] (Most Recent) 3074F 6. Polyneuropathy, unspecified (G62.9) Quuq-sny-sjpxsqt B-complex vitamins explored. Consider further assessment and management of symptoms shoul (more content not included)...Genesis HospitalComment on above:Result Comment: Electronically Signed By: Yfn ESCOBEDO, Antoine Avila\.br\Date and Time Signed: 02/04/24 10:15 ESTCBC AND AUTO DIFFon 85-23-3122DYXCSXNT BASOPHIL0.2 X10E9/LNormal0.0-0.2[facility] Comment on above:Performed By: #### MAGALI CBCA, 3084-1 ####[facility] ([id number])[address] [place] [address] 23213#### 06799-4 ####[facility] ([id number])[address] [place] [address], [address] [place] [address] 45648Xupofhndt/100 WBC (Bld)2.0 %NormalProMedica [facility]umas District Hospital Comment on above:Performed By: #### CMP, CBCA, 3084-1 ####[facility] ([id number])[address] [place] [address] 97191#### 54952-2 ####[facility] ([id number])[address], [address] [place] [address] 61343Ndagrevjnfw (Bld) [#/Vol]0.1 10*3/uLNormal0.0-0.4ProBaylor Scott & White Medical Center – Lake PointeComment on above:Performed By: #### CMP, CBCA, 3083-1 ####[facility] ([id number])[address] [place] [address] 85413#### 10435-8 ####[facility] ([id number])[address] [facility], [address] [place] [address] 32516Bupwqjdmuji/100 WBC (Bld) 1.0 %NormalProBaylor Scott & White Medical Center – Lake PointeComment on above:Performed By: #### CMP, CBCA, 3083- ####[facility] ([id number])[address] [place] [address] 57049#### 83647-9 ####[facility] ([id number])[address] [facility], [address] [place] [address] 22247Mrdlojtykfa distribution width (RBC) [Ratio]17.2 %High11.5-15.0ProBaylor Scott & White Medical Center – Lake PointeComment on above:Performed By: #### CMP, CBCA, 3083- ####[facility] ([id number])[address] [place] [address] 34639#### 92431-9 ####[facility] ([id number])[address] [facility], [address] [place] [address] 60791Tgpqjthvtu (Bld) [Volume fraction]41.7 %Lzwnzl62-55OzaAviomtBaylor Scott & White Medical Center – Lake PointeComment on above:Performed By: #### CMP, CBCA, 3083-1 ####[facility] ([id number])[address] [place] [address] 44651#### 19848-0 ####[facility] ([id number])[address] [facility], [address] [place] [address] 37457Bfofidjzzl (Bld) [Mass/Vol]14.1 g/tRMjetar90.0-17.0 [facility] HospitalComment on above:Performed By: #### CMP, CBCA, 3083-1 ####[facility] ([id number])[address] [place] [address] 27850#### 24592-9 ####[facility] ([id number])[address] [facility], [address] [place] [address] 87816OQLHDE-IVAHO BODY1+Abnormal NONEProMedica Plumas District HospitalComment on above:Performed By: #### CMP, CBCA, 3083- ####[facility] ([id number])[address] [place] [address] 87021#### 11220-1 ####[facility] ([id number])[address] [facility], [address] [place] [address] 20504Mqognneabup (Bld) [#/Vol] 4.1 10*3/uLHigh1.0-3.5Pro[facility] HospitalComment on above:Performed By: #### CMP, CBCA, 3083- ####[facility] ([id number])[address] [place] [address] 53341#### 50899-9 ####[facility] ([id number])[address] [facility], [address] [place] [address] 94203Aethupeqbqk/100 WBC (Bld)37.0 %NormalProMedica Plumas District HospitalComment on above:Performed By: #### CMP, CBCA, 3083-1 ####[facility] ([id number])[address] [place] [address] 71099#### 51491-9 ####[facility] ([id number])[address], [address] [place] [address] 13412DAV (RBC) [Entitic mass]35.5 zzHogx69-99AxgMwbzzfBaylor Scott & White Medical Center – Lake PointeComment on above:Performed By: #### CMP, CBCA, 308-1 ####[facility] ([id number])[address] [place] [address] 39798#### 38934-0 ####[facility] ([id number])[address] [facility], [address] [place] [address] 50691FMIJ (RBC) [Mass/Vol] 33.7 g/cMAowsno27-47BxcEuzdmvBaylor Scott & White Medical Center – Lake PointeComment on above:Performed By: #### CMP, CBCA, 3083- ####[facility] ([id number])[address] [place] [address] 76899#### 36166-4 ####[facility] ([id number])[address] [facility], [address] [place] [address] 57989JIB (RBC) [Entitic vol] 105 kCWbwv88-825RyzOxlbsfBaylor Scott & White Medical Center – Lake PointeComment on above:Performed By: #### CMP, CBCA, 3083- ####[facility] ([id number])[address] [place] [address] 11006#### 95384-2 ####[facility] ([id number])[address] [facility], [address] [place] [address] 59408Awpigsoko (Bld) [#/Vol] 1.8 10*3/uLHigh0-0.9ProBaylor Scott & White Medical Center – Lake PointeComment on above:Performed By: #### CMP, CBCA, 3083-1 ####[facility] ([id number])[address] [place] [address] 78848#### 53782-1 ####[facility] ([id number])[address] [facility], [address] [place] [address] 59498Gegsqyffl/100 WBC (Bld) 16.0 %NormalProBaylor Scott & White Medical Center – Lake PointeComment on above:Performed By: #### MAGALI, CBCA, 4-1 ####[facility] ([id number])[address] [place] [address] 48791#### 42614-1 ####[facility] ([id number])[address] [facility], [address] [place] [address] 78725Zrtlmuhznpt (Bld) [#/Vol] 5.0 10*3/uLNormal1.5-6.6ProMercer County Community Hospitalca Plumas District HospitalComment on above:Performed By: #### MAGALI, CBCA, 3083- ####[facility] ([id number])[address] [place] [address] 21894#### 25036-5 ####[facility] ([id number])[address] [facility], [address] [place] [address] 54475MZAQGDMIE RBC2.0 /100 WBCHigh0.0-1.0ProBaylor Scott & White Medical Center – Lake PointeComment on above:Performed By: #### MAGALI, CBCA, 3083- ####[facility] ([id number])[address] [place] [address] 84079#### 49656-8 ####[facility] ([id number])[address] [facility], [address] [place] [address] 07557Irbuokqt mean volume (Bld) [Entitic vol]9.5 fLNormal7-12[facility] HospitalComment on above: Performed By: #### CMP, CBCA, 3083-1 ####[facility] ([id number])[address] [place] [address] 39441#### 43448-4 ####[facility] ([id number])[address] [facility], [address] [place] [address] 05888Yhmqdappa (Bld) [#/Vol]330 10*3/mUQpftdi260-400DceSitmduPremier Health Comment on above:Performed By: #### CMP, CBCA, 3084-1 ####[facility] ([id number])[address] [place] [address] 80851#### 48053-4 ####[facility] ([id number])[address] [facility], [address] [place] [address] 44582FGE COUNT3.96 X10E12/LLow4.10-5.70[facility] Comment on above:Performed By: #### CMP, CBCA, 3084-1 ####[facility] ([id number])[address] [place] [address] 00962#### 25432-1 ####[facility] ([id number])[address] [facility], [address] [place] [address] 57904ZUW ZXNITBLJRP46.0 %NormalProBaylor Scott & White Medical Center – Lake PointeComment on above:Performed By: #### CMP, CBCA, 3083-1 ####[facility] ([id number])[address] [place] [address] 99641#### 89472-4 ####[facility] ([id number])[address] [facility], [address] [place] [address] 40956QKM (Bld) [#/Vol]11.2 10*3/uLHigh4.0-11.0Premier HealthComment on above:Performed By: #### CMP, CBCA, 308-1 ####[facility] ([id number])[address] [place] [address] 78166#### 58960-0 ####[facility] ([id number])[address], [address], [place] [address]NPDTNKSVAEPXE METABOLIC PANELon 64-35-4976Imxnohc [Mass/Vol]3.3 g/dLNormal 3.2-5.3[facility] HospitalComment on above:Performed By: #### OG DE LOS SANTOS, 3084-1 ####[facility] ([id number])[address] [place] [address] 47730#### 82701-2 ####[facility] ([id number])[address] [facility], [address], [place] [address]RNI [Catalytic activity/Vol]69 U/TXifrdp77-316HvjYemhitBaylor Scott & White Medical Center – Lake PointeComment on above: Performed By: #### OG DE LOS SANTOS, 3084-1 ####[facility] ([id number])[address] [place] [address] 64538#### 25509-9 ####[facility] ([id number])[address], [address], [place] [address]POU [Catalytic activity/Vol]25 U/LNormal0-40ProBaylor Scott & [facility] Comment on above:Performed By: #### OG DE LOS SANTOS, 3084-1 ####[facility] ([id number])[address] [place] [address] 29511#### 12869-4 ####[facility] ([id number])[address], [address], [place] [address]Irmfk gap [Moles/Vol]9 mmol/LNormal5-15ProBaylor Scott & White Medical Center – Lake PointeComment on above:Performed By: #### MAGALI CBCTrang, 3084-1 ####[facility] ([id number])[address] [place] [address] 07340#### 18162-1 ####[facility] ([id number])0 [facility], [address], [place] [address]XKD [Catalytic activity/Vol]33 U/LNormal0-41ProBaylor Scott & White Medical Center – Lake PointeComment on above:Performed By: #### OG DE LOSS ANTOS, 3084-1 ####[facility] ([id number])[address] [place] [address] 15105#### 53501-6 ####[facility] ([id number])[address] [facility], [address] [place] [address] 93758Yeckzcisu [Mass/Vol]0.6 mg/dLNormal0.3-1.2PSumma Health Barberton CampusComment on above:Performed By: #### OG DE LOS SANTOS, 3084-1 ####[facility] ([id number])[address] [place] [address] 72829#### 24752-2 ####[facility] ([id number])[address] [facility], [address] [place] [address] 07099Mdvvtgi [Mass/Vol]9.2 mg/dLNormal8.5-10.5PSumma Health Barberton CampusComment on above:Performed By: #### OG DE LOS SANTOS, 3084-1 ####[facility] ([id number])[address] [place] [address] 57502#### 13478-2 ####[facility] ([id number])0 [facility], [address], [place] [address]Ceokposw [Moles/Vol]100 mmol/AGqnazv81-985LqjTuyjqpBaylor Scott & White Medical Center – Lake PointeComment on above:Performed By: #### OG DE LOS SANTOS, 3084-1 ####[facility] ([id number])[address] [place] [address]#### 84358-8 ####[facility] ([id number])[address] [facility], [address] [address]EY2 [Moles/Vol]29 mmol/BPmyrex78-28AebClaxqg [facility]remont HospitalComment on above:Performed By: #### OG DE LOS SANTOS, 3084-1 ####[facility] ([id number])[address] [place] [address] 06245#### 81321-2 ####[facility] ([id number])[address] [address]Tdspzedgmv [Mass/Vol] 0.77 mg/dLNormal0.70-1.20ProBaylor Scott & White Medical Center – Lake PointeComment on above:Result Comment: METHOD TRACEABLE TO IDMS STANDARDPerformed By: #### OG DE LOS SANTOS, 3084-1 ####[facility] ([id number])[address] [place] [address] 76419#### 71043-0 ####[facility] ([id number])[address] [place] [address] 10866gHAP (CKD-EPI) NON-RACE DEPENDENT>90Normal>59ProBaylor Scott & White Medical Center – Lake PointeComcorewell health greenville hospital on above:Result Comment: Reported eGFR is based on theCKD-EPI 2020 equation that doesnot use a race coefficient.Performed By: #### OG DE LOS SANTOS, 3083- ####[facility] ([id number])[address] [place] [address] 51284#### 77044-8 ####[facility] ([id number])[address] [address]Hqsiehg [Mass/Vol]160 mg/rWLnrt44-17TcwAmarltBaylor Scott & White Medical Center – Lake PointeComment on above:Performed By: #### OG DE LOS SANTOS, 3083-1 ####[facility] ([id number])[address] [place] [address] 72772#### 07677-2 ####[facility] ([id number])[address] [facility], [address], [place] [address]Ndxrvnurw [Moles/Vol]4.1 mmol/LNormal3.5-5.0ProB[facility] Scott & [facility] Comment on above:Performed By: #### OG DE LOS SANTOS, 3084-1 ####[facility] ([id number])[address] [place] [address] 16019#### 72368-4 ####[facility] ([id number])[address] [facility], [address], [place] [address]Dxlvyrb [Mass/Vol]6.2 g/dLNormal6.0-8.0ProBaylor Scott & White Medical Center – Lake PointeComment on above:Performed By: #### OG DE LOS SANTOS, 3083-1 ####[facility] ([id number])[address] [place] [address] 13261#### 63443-6 ####[facility] ([id number])[address] [facility], [address], [place] [address]Diuvgo [Moles/Vol]138 mmol/DYymsig555-673SymOyctik [facility] HospitalComment on above:Performed By: #### OG DE LOS SANTOS, 3083-1 ####[facility] ([id number])[address] [place] [address] 03902#### 37682-0 ####[facility] ([id number])[address] [facility], [address], [place] [address]Selj nitrogen [Mass/Vol]13 mg/dLNormal5-27ProBaylor Scott & White Medical Center – Lake PointeComment on above:Performed By: #### OG DE LOS SANTOS, 3083-1 ####[facility] ([id number])[address] [place] [address] 91724#### 09639-9 ####[facility] ([id number])[address], [address] [place] [address] 47332ZUJ Photometric method (Bld) [Velocity]on 94-13-1378IPJ, ERYTHROCYTE SEDIMENTATION RATE9 mm/hNormal0-20 [facility] HospitalComment on above:Performed By: #### CMP, CBCA, 3084-1 ####[facility] ([id number])[address] [place] [address] 88769#### 53564-7 ####[facility] ([id number])[address], [address] [address]GSLA ACIDon 40-51-5527Idwpq [Mass/Vol]4.7 mg/dLNormal2.6-7.2Pro[facility] HospitalComment on above: Performed By: #### CMP, CBCA, 3084-1 ####[facility] ([id number])[address] [place] [address] 01131#### 96161-9 ####[facility] ([id number])[address], [address] [address]Lltqbzywnp Visit Summaryon 96-33-0862Xlvhlgjmgh Visit SummaryAmbulatory Visit Summary TORSTEN HAYWOOD :1955 Visit Date:10/19/2023 Ambulatory Visit Instructions Your Diagnosis Congestive heart failure Hyponatremia Hx of CABG HTN (hypertension) CAD (coronary artery disease) BMI 26.0-26.9,adult Overweight Nonsmoker Uses walker Hodgkin lymphoma Your Care Team Attending Physician - Antoine Hobbs MD Primary Care Physician - Antoine Hobbs MD This Is Your Medications List [...] What How Much When Why Instructions New Misc Prescription (Handicap Ismael, 5 years.) See instructions Congestive heart failure Hyponatremia Hx of CABG HTN (hypertension) CAD (coronary artery disease) BMI 26.0-26.9,adult Overweight Nonsmoker Uses walker Handicap Ismael, 5 years. Printed Prescription Changed metoprolol (metoprolol succinate 25 mg ER Tab) 0.5 Tablets By Mouth Every day Pickup at [facility] Changed mirtazapine (Remeron 15 mg Tab) 1 Tablets By Mouth Once a day (at bedtime) Pickup at [facility] Unchanged acetaminophen (acetaminophen 500 mg [...] Use as needed Contact prescribing physician if questionsor concerns Unchanged ondansetron (Zofran 4 mg Tab) [...] physician if questions or concerns Pharmacy Information [facility]: [address] [place], [place] [phone] Allergies No Known Allergies No Known Medication [...] fat. BMI does not measure body fat directly.Rather, it is an alternative to procedures that directly measure body fat, which can be difficult and expensive. BMI can help identify people who may be at higher risk for certain medical problems. What are BMI measurements used for? BMI is used as a screening tool to identify p (more content not included)... [facility] Medicine Office/Clinic Noteon 10-19-2023 Family Medicine Office/[facility] NoteF[facility] Office/Clinic Note HPI Staff Torsten is a 67 year old male presenting for a face to face for home health services. [facility] with [facility], went on hold when in the hospital so needs the visit Spent 12 days in [facility] with norovirus after his first chemo treatment [...] artery disease) (I25.10: Atherosclerotic heart disease of [place] coronary artery without angina pectoris) - NO [...] Most recent diastolic blood (more content not included)...[facility] HospitalComment on above:Result Comment: Electronically Signed By: Yfn ESCOBEDO, Antoine Lopezbr\Date and Time Signed: 10/19/23 14:20 [facility] Recordson 35-09-9015[facility] [id number]#1.00TIFF [facility] HospitalNursing Home Recordson 21-31-7133[facility] Home [id number]#1.00TIFF[facility] Note-Physicianon 40-19-7188BE Note-Physician [id number]#1.00TIFFGenesis HospitalRAD - MISCon 11-19-1506IWW - MISC [id number]#1.00TIFFirelands Regional Medical Center South CampusIR PORT INSERTION > 5 YRSon 95-40-6430UC PORT INSERTION > 5 YRSNormal [facility]aggs HospitalPLATELET COUNT AND MPVon 22-69-6058Swwbqhgt mean volume (Bld) [Entitic vol]8.5 fLNormal7-12Pro[facility] Braggs HospitalComment on above: Performed By: #### GUSTAVO, 43040-9, PLTCT ####[facility] ([id number])[address], [address] [place] [address]Zhqsqjkpr (Bld) [#/Vol]538 10*3/kGYxga896-036NsdTycqus Braggs HospitalComment on above:Performed By: #### GUSTAVO, 59195-5, PLTCT ####[facility] ([id number])[address], [place] [address]QFDQVSK AND INRon 68-75-1161RXA Coag (PPP) [Relative time]1.4 {INR}High0.8-1.1PPomerene Hospital HospitalComment on above: Performed By: #### GUSTAVO 92367-0, PLTCT ####[facility] ([id number])[address], [address], [place] [address]BN Coag (PPP) [Time]15.6 s High9.8-13.2PPomerene Hospital HospitalComment on above:Performed By: #### GUSTAVO 60826-7, PLTCT ####[facility] ([id number])[address], [place] [address]wMIO Coag (PPP) [Time]on 14-99-0799mUTA Coag (Bld) [Time]36 vPsthyh55-43SjeIgnmqo [place] HospitalComment on above:Performed By: #### GUSTAVO 09941-4, PLTCT ####[facility] ([id number])[address], [address], [place] [address]NOLUY METABOLIC PANLon 42-92-4060Ynttz gap [Moles/Vol]6 mmol/LNormal5-15[facility] HospitalComment on above:Performed By: #### CBCTrang, BMP ####[facility] ([id number])[address], [address], [place] [address]Rotnlao [Mass/Vol]9.1 mg/dLNormal8.5-10.5PPomerene Hospital HospitalComment on above:Performed By: #### CBCA, BMP ####[facility] ([id number])[address], [address], [place] [address]Nwewpbwf [Moles/Vol]95 mmol/PJgd96-456XetRmqsrs [place] HospitalComment on above:Performed By: #### ISELA FOLEY ####[facility] ([id number])[address] [address] [place], [place] [address]OB0 [Moles/Vol]35 mmol/YOrap19-54LkcZrgjfu [facility] HospitalComment on above:Performed By: #### OG BMP ####[facility] ([id number])[address] [address], [place] [address]Dpmlckevgd [Mass/Vol]0.47 mg/dLLow0.60-1.30[facility] HospitalComment on above:Result Comment: METHOD TRACEABLE TO IDMS STANDARDPerformed By: #### ISELA FOLEY ####[facility] ([id number])[address] [address] [place], [place] [address]yKSU (CKD-EPI) NON-RACE DEPENDENT>90Normal>59[facility] Hospital Comment on above:Result Comment: Reported eGFR is based on theCKD-EPI 2020 equation that doesnot use a race coefficient.Performed By: #### OG BMP ####[facility] ([id number])[address] [address], [place] [address]Mqqmcym [Mass/Vol]87 mg/yFMpidxg75-77IauYwtlwc [place] HospitalComment on above:Performed By: #### OG BMP ####[facility] ([id number])[address] [address], [place] [address]Qabhaonrb [Moles/Vol]4.9 mmol/LNormal3.5-5.0[facility] HospitalComment on above:Performed By: #### OG BMP ####[facility] ([id number])[address] [address] [place], [place] [address]Scvkel [Moles/Vol]136 mmol/UMjewbp097-225BolTsmbzf [place] HospitalComment on above:Performed By: #### ISELA FOLEY ####[facility] ([id number])[address], [address], [place] [address]Ewvs nitrogen [Mass/Vol]10 mg/dLNormal5-27Pro[facility] HospitalComment on above:Performed By: #### CBCA, BMP ####[facility] ([id number])[address], [address], [place] [address]KGI AND AUTO DIFFon 83-64-0568WKVFQCOD BASOPHIL0.0 X10E9/LNormal0.0-0.2[facility] HospitalComment on above:Performed By: #### CBCA, BMP ####[facility] ([id number])[address], [address] [place] [address]IQZXWSCE FSLNQVVLCT46.0 X10E9/LHigh1.5-6.6[facility] HospitalComment on above:Performed By: #### CBCA, BMP ####[facility] ([id number])[address], [address] [place] [address]Spbyiiefr/100 WBC (Bld)0.2 %NormalProMedica Braggs HospitalComment on above:Performed By: #### CBCA, BMP ####[facility] ([id number])[address], [address] [place] [address]Gcdcppfbggc (Bld) [#/Vol]0.1 10*3/uLNormal0.0-0.4Pro[facility] HospitalComment on above:Performed By: #### CBCA, BMP ####[facility] ([id number])[address], [address] [place] [address] Eosinophils/100 WBC (Bld)0.8 %NormalProMedica Braggs HospitalComment on above: Performed By: #### CBCA, BMP ####[facility] ([id number])[address], [address], [place] [address]Kpvzaifbyzw distribution width (RBC) [Ratio] 18.1 %High11.5-15.0ProMercer County Community Hospitalca [facility] HospitalComment on above:Performed By: #### CBCTrang, BMP ####[facility] ([id number])[address], [address], [place] [address]Zvzmmhxmgo (Bld) [Volume fraction]33.7 %Xcq65-29XghVeacxx Terrell HospitalComment on above:Performed By: #### CBCA, BMP ####[facility] ([id number])[address], [address], [place] [address]Vjfaoapfwa (Bld) [Mass/Vol]11.2 g/dLLow13.0-17.0ProMercer County Community Hospitalca [facility]rell HospitalComment on above: Performed By: #### CBCA, BMP ####[facility] ([id number])[address], [address], [place] [address]Uqmjkorkgtv (Bld) [#/Vol]3.1 10*3/uLNormal 1.0-3.5Pro[facility] HospitalComment on above:Performed By: #### CBCA, BMP ####[facility] ([id number])[address], [address], [place] [address]Vfypnoatdou/100 WBC (Bld)18.5 %NormalProMercer County Community Hospitalca [facility]aggs HospitalComment on above:Performed By: #### CBCA, BMP ####[facility] ([id number])[address], [address], [place] [address]MMU (RBC) [Entitic mass] 29.9 jzNhgcnx37-16CitPxowrg [facility] HospitalComment on above:Performed By: #### CBCA, BMP ####[facility] ([id number])[address], [address], [place] [address]QQYS (RBC) [Mass/Vol]33.1 g/lKGovwxs47-86IgzCutqnd [facility] HospitalComment on above:Performed By: #### CBCA, BMP ####[facility] ([id number])[address], [address], [place] [address]XQX (RBC) [Entitic vol]90 xHRpmhyd71-342LwvGsymzs [facility] HospitalComment on above: Performed By: #### CBCA, BMP ####[facility] ([id number])[address], [address], [place] [address]Afhoyansu (Bld) [#/Vol]3.5 10*3/uLHigh0-0.9 [facility] HospitalComment on above:Performed By: #### CBCA, BMP ####[facility] ([id number])[address], [address], [place] [address]Chbveiobc/100 WBC (Bld)20.8 %NormalProMedica Terrell HospitalComment on above:Performed By: #### CBCA, BMP ####[facility] ([id number])[address], [address], [place] [address]Wlxxahfdwxj/100 WBC (Bld) 59.7 %NormalProMedica Terrell HospitalComment on above:Performed By: #### CBCA, BMP ####[facility] ([id number])[address], [address], [place] [address]Cqlxmqom mean volume (Bld) [Entitic vol]8.3 fLNormal7-12[facility] HospitalComment on above:Performed By: #### CBCA, BMP ####[facility] ([id number])[address], [address], [place] [address]Rllwynips (Bld) [#/Vol]475 10*3/rBAnyp263-668ThkIpgefj [facility]rell HospitalComment on above: Performed By: #### CBCA, BMP ####[facility] ([id number])[address], [address] [place] [address]RKGWGLHXIWDXT0+AbnormalNONEProMedica Terrell HospitalComment on above:Performed By: #### CBCTrang BMP ####[facility] ([id number])[address], [address] [place] [address]LYG COUNT3.73 X10E12/LLow4.10-5.70[facility] HospitalComment on above:Performed By: #### CBCTrang, BMP ####[facility] ([id number])[address], [address] [place] [address]GXNVDN4+AbnormalNONEProMedica Terrell HospitalComment on above:Performed By: #### CBCTrang, BMP ####[facility] ([id number])[address], [address] [place] [address]UXZ (Bld) [#/Vol]16.8 10*3/uLHigh4.0-11.0[facility] HospitalComment on above:Performed By: #### CBCTrang, BMP ####[facility] ([id number])[address], [address] [place] [address]PJKPL HEPATITIS PANELon 38-62-5652FRTM HCV W/PCR REFLX Non-ReactiveNormalNRCTProMedica Terrell HospitalComment on above:Result Comment: If recent infection suspected, recommendrepeat testing (>2 months).Pmkcqx-gh-qlazxc ratio is <0.80.Performed By: #### CBCA, BMP, 82356-7, AHP, 74148-9 ####[facility] ([id number])[address], [address] [place] [address]AYCYWIULI A IGMNon-ReactiveNormalNRCTProMedica Terrell HospitalComment on above:Performed By: #### CBCA, BMP, 92138-4, AHP, 83101-6 ####[facility] ([id number])[address], [address], [place] [address]TTFTWTLTO B CORE IGMNegativeNormalNEGProMercer County Community Hospitalca [facility] HospitalComment on above:Performed By: #### OG, ISELA, 21966-6, AHP, 65251-3 ####[facility] ([id number])[address], [address], [place] [address]TMPEFJIQQ B SURF AGNegativeNormalNEGProMedica Braggs HospitalComment on above:Performed By: #### OG, ISELA, 77788-0, AHP, 32450-8 ####[facility] ([id number])[address], [address] [place], [place] [address]YGDAF METABOLIC PANLon 25-04-3390Eaypq gap [Moles/Vol]5 mmol/LNormal5-15[facility] Hospital Comment on above:Performed By: #### OG, ISELA, 02412-2, AHP, 97950-9 ####[facility] ([id number])[address], [address] [address] Calcium [Mass/Vol]9.2 mg/dLNormal8.5-10.5[facility] HospitalComment on above:Performed By: #### OG, ISELA, 76173-3, AHP, 20515-9 ####[facility] ([id number])[address], [address] [place], [place] [address]Pwrrmhxx [Moles/Vol]95 mmol/LIuy59-676KbmZwzbgm [facility] HospitalComment on above:Performed By: #### OG, BMP, 76772-0, AHP, 68894-0 ####[facility] ([id number])[address], [address], [place] [address]CQ1 [Moles/Vol]34 mmol/L Vkip58-21MtoLucodr Terrell HospitalComment on above:Performed By: #### ISELA FOLEY, 59379-6, AHP, 10507-4 ####[facility] ([id number])[address] [address]Gpmhcpbezx [Mass/Vol]0.43 mg/dLLow0.60-1.30 ProMFulton County Health CenterComment on above:Result Comment: METHOD TRACEABLE TO IDMS STANDARDPerformed By: #### ISELA FOLEY, 50380-7, AHP, 52771-5 ####[facility] ([id number])[address] [address], [place] [address]eJXE (CKD-EPI) NON-RACE DEPENDENT>90Normal>59ProLicking Memorial HospitalComment on above:Result Comment: Reported eGFR is based on theCKD-EPI 2020 equation that doesnot use a race coefficient.Performed By: #### ISELA FOLEY, 75300-9, AHP, 02107-1 ####[facility] ([id number])[address] [address], [place] [address]Kqsxclv [Mass/Vol]81 mg/yVTmuxen91-47UomTqxwfl [place] HospitalComment on above:Performed By: #### ISELA FOLEY, 88639-7, AHP, 58692-4 ####[facility] ([id number])[address] [address], [place] [address]Olwdulysd [Moles/Vol]5.0 mmol/LNormal3.5-5.0ProL[facility] Comment on above:Performed By: #### ISELA FOLEY, 66035-9, AHP, 71566-6 ####[facility] ([id number])[address] [place] [address] Sodium [Moles/Vol]134 mmol/CCcusir753-881AopXrgwwz [place] HospitalComment on above:Performed By: #### ISELA FOLEY, 81320-1, AHP, 60754-6 ####[facility] ([id number])[address], [address] [place] [address] 233[address]Okpo nitrogen [Mass/Vol]9 mg/dLNormal5-27[facility] HospitalComment on above:Performed By: #### CBCTrang, ISELA, 99139-2, AHP, 76680-1 ####[facility] ([id number])[address], [address] [place] [address]QBA AND AUTO DIFFon 71-38-8892YNWYKSMF BASOPHIL0.1 X10E9/LNormal0.0-0.2PHolmes County [facility] Comment on above:Performed By: #### ISELA FOLEY, 94737-9, AHP, 07151-9 ####[facility] ([id number])[address], [address] [place] [address] ABSOLUTE EQWUWJBXGU73.1 X10E9/LHigh1.5-6.6ProLicking Memorial HospitalComment on above:Performed By: #### CBCTrang, ISELA, 13004-6, AHP, 99881-8 ####[facility] ([id number])[address] [address] [place] [address]86[address]Otgmictnc/100 WBC (Bld)0.7 %NormalProLicking Memorial HospitalComment on above:Performed By: #### CBCA, ISELA, 50763-4, AHP, 82776-3 ####[facility] ([id number])[address], [address] [place] [address] 740[address]Umlvaxbcfir (Bld) [#/Vol] 0.1 10*3/uLNormal0.0-0.4ProLicking Memorial HospitalComment on above:Performed By: #### CBCA, BMP, 77180-5, AHP, 43525-8 ####[facility] ([id number])[address], [address] [place] [address] 31039Eapbgzuctof/100 WBC (Bld) 0.7 %NormalProMedica Braggs HospitalComment on above:Performed By: #### CBCISELA Costello, 84682-9, AHP, 30646-7 ####[facility] ([id number])[address], [address] [place] [address] 659[address]Wbxmwvhnvst distribution width (RBC) [Ratio] 17.8 %High11.5-15.0Pro[facility] HospitalComment on above:Performed By: #### CBCTrang, ISELA, 11881-3, AHP, 07622-8 ####[facility] ([id number])[address] [address] [place] [address] 67384Revhlfujcn (Bld) [Volume fraction]35.8 %Spk54-56AhtQizbjd [facility] HospitalComment on above:Performed By: #### CBCISELA Costello, 91435-3, AHP, 78386-1 ####[facility] ([id number])[address] [address] [place] [address] 66[address]Swnfajdtnh (Bld) [Mass/Vol] 11.9 g/dLLow13.0-17.0ProMercer County Community Hospitalca [facility] HospitalComment on above:Performed By: #### CBCTrang, ISELA, 39469-4, AHP, 05196-9 ####[facility] ([id number])[address] [address] [place] [address] 22312Bjnbwzdukhn (Bld) [#/Vol] 4.0 10*3/uLHigh1.0-3.5Pro[facility]ica [facility] HospitalComment on above:Performed By: #### CBCA, BMP, 47654-4, AHP, 53663-1 ####[facility] ([id number])[address] [address] [place] [address] 82399Yygutcnqxrp/100 WBC (Bld) 20.5 %NormalProMedica Terrell HospitalComment on above:Performed By: #### CBCA, BMP, 38719-3, AHP, 49519-5 ####[facility] ([id number])[address], [address] [place] [address] 45560KTK (RBC) [Entitic mass]30.2 gcWqnsxc59-11 [facility] HospitalComment on above:Performed By: #### CBCA, BMP, 45222-4, AHP, 68238-5 ####[facility] ([id number])[address], [address] [place] [address] 06[address]NJBI (RBC) [Mass/Vol]33.3 g/uGCcvpif71-81JnjNfsmsm [facility] HospitalComment on above:Performed By: #### CBCA, BMP, 24318-5, AHP, 64781-7 ####[facility] ([id number])[address], [address] [place] [address] 08452BTI (RBC) [Entitic vol]91 uQOezgim82-382ZdxNmwndm [facility] HospitalComment on above:Performed By: #### CBCA, BMP, 38380-0, AHP, 70813-4 ####[facility] ([id number])[address], [address] [place] [address] 513[address]Jepczedlw (Bld) [#/Vol]3.0 10*3/uLHigh0-0.9Pro[facility] HospitalComment on above: Performed By: #### CBCA, BMP, 04343-1, AHP, 47590-8 ####[facility] ([id number])[address] [address] [place] [address] 64709Sjknxavwz/100 WBC (Bld)15.4 %NormalProMedica Terrell HospitalComment on above:Performed By: #### CBCA, BMP, 14437-6, AHP, 27942-8 ####[facility] ([id number])[address], [address] [place] [address] 52382Ykcpvmkbgmn/100 WBC (Bld) 62.7 %NormalProMercer County Community Hospitalca [facility] HospitalComment on above:Performed By: #### CBCA, BMP, 89260-5, AHP, 42143-1 ####[facility] ([id number])[address], [address] [place] [address] 01878Jkawsyjt mean volume (Bld) [Entitic vol]8.4 fLNormal7-12Pro[facility] HospitalComment on above:Performed By: #### CBCA, BMP, 09357-8, AHP, 99409-0 ####[facility] ([id number])[address], [address] [place] [address] 97906Hgmgsijzs (Bld) [#/Vol]471 10*3/uLHigh 150-450ProMedica [facility]gs HospitalComment on above:Performed By: #### CBCA, BMP, 93127-5, AHP, 72606-8 ####[facility] ([id number])[address], [address] [place] [address] 86106SUQ COUNT3.96 X10E12/LLow4.10-5.70Pro[facility] HospitalComment on above:Performed By: #### CBCA, BMP, 35009-8, AHP, 65266-6 ####[facility] ([id number])[address], [address] [place] [address] 72462JWJ (Bld) [#/Vol]19.3 10*3/uLHigh4.0-11.0ProMercer County Community Hospitalca [facility] HospitalComment on above:Performed By: #### CBCA, BMP, 85969-5, AHP, 92709-3 ####[facility] ([id number])[address], [address] [place] [address] 47762GTI Photometric method (Bld) [Velocity]on 59-71-9000CPZ, ERYTHROCYTE SEDIMENTATION RATE72 mm/hHigh0-20[facility] Memorial HospitalComment on above: Performed By: #### ISELA FOLEY, 61385-3, P, 85591-2 ####[facility] ([id number])[address], [place] [address]ACH 1+2 Ab+HIV1 p24 Ag IA Qlon 55-09-3042UMQ 1 and 2 Ab/Ag ScreenNon-ReactiveNormalNRCTProLicking Memorial HospitalComment on above:Result Comment: This information has been disclosed to [...] HIV test resultsor diagnoses. Performed By: #### ISELA FOLEY, 79170-4, Manny, 10900-0 ####[facility] ([id number])[address] [place] [address] 30509JHKLM METABOLIC PANLon 55-91-7046Nhcwr gap [Moles/Vol]7 mmol/LNormal5-15[facility] Comment on above:Performed By: #### OG BMP ####[facility] ([id number])[address], [address], [place] [address]Bakthrj [Mass/Vol]8.9 mg/dL Normal8.5-10.5PTerrebonne General Medical Centerica Trinity Health SystemComment on above:Performed By: #### OG BMP ####[facility] ([id number])[address], [address], [place] [address]Jnxilnit [Moles/Vol]97 mmol/FDwa31-311ThzXuttoqLicking Memorial Hospital Comment on above:Performed By: #### ISELA FOLEY ####[facility] ([id number])[address] [address], [place] [address]IH3 [Moles/Vol]33 mmol/L Cefs35-52ZcuXmlwif [facility]gs HospitalComment on above:Performed By: #### OG, BMP ####[facility] ([id number])[address] [address] [place], [place] [address]Rtkedxsbek [Mass/Vol]0.29 mg/dLLow0.60-1.30[facility] Comment on above:Result Comment: METHOD TRACEABLE TO IDMS STANDARDPerformed By: #### OG BMP ####[facility] ([id number])[address] [address], [place] [address]sYDK (CKD-EPI) NON-RACE DEPENDENT>90Normal>59Pro[facility] Hospital HospitalComment on above:Result Comment: Reported eGFR is based on theCKD-EPI 2020 equation that doesnot use a race coefficient.Performed By: #### OG, BMP ####[facility] ([id number])[address] [address], [place] [address]Nitryjd [Mass/Vol]90 mg/aULbltfx07-41NhiJgmdcx [place] HospitalComment on above:Performed By: #### OG, BMP ####[facility] ([id number])[address] [address] [address]Cupemamvt [Moles/Vol]4.8 mmol/LNormal3.5-5.0Pro[facility] Hospital HospitalComment on above: Performed By: #### OG, BMP ####[facility] ([id number])[address] [address] [address]Whxqai [Moles/Vol]137 mmol/WZsmpht072-293 [facility] HospitalComment on above:Performed By: #### CBCA, BMP ####[facility] ([id number])[address] [place] [address] 13399Tooi nitrogen [Mass/Vol]8 mg/dLNormal5-27Pro[facility] HospitalComment on above:Performed By: #### CBCA, BMP ####[facility] ([id number])[address], [address] [place] [address] 70990JQD AND AUTO DIFFon 37-13-5771Bbpytaficia distribution width (RBC) [Ratio]17.7 %High11.5-15.0 [facility] HospitalComment on above:Performed By: #### CBCA, BMP ####[facility] ([id number])[address], [address] [place] [address] 29898Szwaebnlhn (Bld) [Volume fraction]34.1 %Uxa84-32VpeGbulzz [facility] Comment on above:Performed By: #### CBCA, BMP ####[facility] ([id number])[address], [address] [place] [address] 23431Yrfjihiimi (Bld) [Mass/Vol] 11.1 g/dLLow13.0-17.0[facility] HospitalComment on above:Performed By: #### CBCA, BMP ####[facility] ([id number])[address] [address] [place] [address] 29810Inhmzypncyb (Bld) [#/Vol]1.8 10*3/uLNormal1.0-3.5 [facility] HospitalComment on above:Performed By: #### CBCA, BMP ####[facility] ([id number])[address] [address], [place] [address]Gqdaazlulwa/100 WBC (Bld)9.0 %NormalProMarion Hospital HospitalComment on above:Performed By: #### CBCA, BMP ####[facility] ([id number])[address], [address] [place] [address] 88692GQO (RBC) [Entitic mass] 29.7 vgAqehng65-07NboWkgzui [facility] HospitalComment on above:Performed By: #### CBCA, BMP ####[facility] ([id number])[address], [address] [place] [address] 27818ROLX (RBC) [Mass/Vol]32.5 g/kVImjnyo90-33NhrGojpvj [facility] HospitalComment on above:Performed By: #### CBCA, BMP ####[facility] ([id number])[address], [address] [place] [address] 77775SKJ (RBC) [Entitic vol]91 yOUczbph61-608VcxYrarym [facility] HospitalComment on above: Performed By: #### CBCA, BMP ####[facility] ([id number])[address], [address] [place] [address] 47569Aocfzehmf (Bld) [#/Vol]3.9 10*3/uLHigh0-0.9 [facility] HospitalComment on above:Performed By: #### CBCA, BMP ####[facility] ([id number])[address], [address] [place] [address] 57428Rcrfkuxzq/100 WBC (Bld)20.0 %NormalProMedica Terrell HospitalComment on above:Performed By: #### CBCA, BMP ####[facility] ([id number])[address], [address] [place] [address] 53480JYSCGGWNC7.0 %Normal [facility] HospitalComment on above:Performed By: #### CBCA, BMP ####[facility] ([id number])[address], [address] [place] [address] 21682Dzancqbrtlz (Bld) [#/Vol]13.8 10*3/uLHigh1.5-6.6[facility] Comment on above:Performed By: #### OG, BMP ####[facility] ([id number])[address], [address] [place] [address] 23160Fifcaljs mean volume (Bld) [Entitic vol]8.8 fLNormal7-12[facility] HospitalComment on above:Performed By: #### CBCTrang, BMP ####[facility] ([id number])[address], [address] [place] [address] 88289Wnfpobspp (Bld) [#/Vol]427 10*3/zGKeccpx994-770 [facility] HospitalComment on above:Performed By: #### CBCTrang, BMP ####[facility] ([id number])[address], [address] [place] [address] 73175EPS COUNT3.73 X10E12/LLow4.10-5.70[facility] HospitalComment on above:Performed By: #### CBCTrang, BMP ####[facility] ([id number])[address] [place] [address] 66959AND morphology finding Nom (Bld)NORMALNormalProMedica Terrell HospitalComment on above:Performed By: #### CBCTrang, BMP ####[facility] ([id number])[address], [address] [place] [address] 74719CQP NIRLHUWZGM57.0 %NormalProMedica Terrell HospitalComment on above:Performed By: #### CBCTrang, BMP ####[facility] ([id number])[address], [address] [place] [address] 12388FNV (Bld) [#/Vol]19.7 10*3/uLHigh4.0-11.0ProMedica Terrell HospitalComment on above:Performed By: #### CBCA, BMP ####[facility] ([id number])[address], [address], [place] [address]Tuaxyyy unfractionated Chromogenic method Qn (PPP)on 14-63-8725ZPRV XA UFH0.14 IU/mLLow0.30-0.70[facility] HospitalComment on above:Result Comment: Optimal time for testing is 6 hrs post dosageThis test is specific for monitoring patientson UFH, and is not recommended for use withother Anti-Xa medications.Performed By: #### 3274-8 ####[facility] ([id number])[address], [address], [place] [address]WIAG XA UFH0.07 IU/mLLow 0.30-0.70[facility] HospitalComment on above:Result Comment: Optimal time for testing is 6 hrs post dosageThis test is specific for monitoring patientson UFH, and is not recommended for use withother Anti-Xa medications.Performed By: #### 3274-8 ####[facility] ([id number])[address], [address], [place] [address]PQQOZ METABOLIC PANLon 14-00-4323Crlyg gap [Moles/Vol]5 mmol/LNormal5-15[facility] HospitalComment on above:Performed By: #### OG, 21738-3, BMP, 28813-4 ####[facility] ([id number])[address], [address], [place] [address]Ivnklql [Mass/Vol]8.4 mg/dLLow8.5-10.5 [facility]gs HospitalComment on above:Performed By: #### OG, 39746-8, BMP, ####[facility] ([id number])[address], [address] [place], [place] [address]Yhfixwdj [Moles/Vol]93 mmol/PDyz46-579DiuEfecmn [place] HospitalComment on above:Performed By: #### OG, 28397-5, BMP, ####[facility] ([id number])[address], [address], [place] [address]AL9 [Moles/Vol]35 mmol/FNwad80-03XjbQgxjqp [place] HospitalComment on above:Performed By: #### OG, 04942-6, ISELA, ####[facility] ([id number])[address], [address], [place] [address]Vvalfchbqa [Mass/Vol]0.40 mg/dLLow0.60-1.30ProLicking Memorial HospitalComment on above:Result Comment: METHOD TRACEABLE TO IDMS STANDARDPerformed By: #### OG, 22474-4, ISELA, ####[facility] ([id number])[address] [address], [place] [address]bINP (CKD-EPI) NON-RACE DEPENDENT>90Normal>59ProLicking Memorial HospitalComment on above:Result Comment: Reported eGFR is based on theCKD-EPI 2020 equation that doesnot use a race coefficient.Performed By: #### OG, 38119-0, ISELA, ####[facility] ([id number])[address] [address], [place] [address]Ubthafn [Mass/Vol]86 mg/yBJiyikc07-02YjiTaiuaq [place] HospitalComment on above:Performed By: #### OG, 28882-3, ISELA, ####[facility] ([id number])[address] [address] [place], [place] [address]Pvjcpglpb [Moles/Vol]4.6 mmol/LNormal3.5-5.0[facility] Hospital Comment on above:Performed By: #### OG, 78407-1, ISELA, ####[facility] ([id number])[address], [address], [place] [address] Sodium [Moles/Vol]133 mmol/UNlr885-460UuaWcfgum [place] HospitalComment on above: Performed By: #### OG, 58272-7, BMP, ####[facility] ([id number])[address], [address] [place] [address] 22087Rran nitrogen [Mass/Vol]8 mg/dLNormal5-27[facility] HospitalComment on above:Performed By: #### OG, 94092-2, BMP, ####[facility] ([id number])[address], [address] [place] [address] 91238PYA AND AUTO DIFFon 92-21-3146YMKOMEWL BASOPHIL0.1 X10E9/LNormal0.0-0.2Pro[facility]aggs HospitalComment on above: Performed By: #### OG, 18637-6, BMP, ####[facility] ([id number])[address], [address] [place] [address] 11116QVYPGERL PKHAVJKPJJ92.8 X10E9/LHigh1.5-6.6[facility] HospitalComment on above:Performed By: #### OG, 68947-1, BMP, ####[facility] ([id number])[address], [address] [place] [address] 57545Hkqrssrno/100 WBC (Bld)0.4 %NormalProMarion Hospital HospitalComment on above:Performed By: #### OG, 33192-8, BMP, ####[facility] ([id number])[address] [address]Mmxwawccmoy (Bld) [#/Vol]0.0 10*3/uLNormal0.0-0.4[facility] Comment on above:Performed By: #### OG, 16407-2, BMP, ####[facility] ([id number])[address], [address] [address] Eosinophils/100 WBC (Bld)0.3 %NormalProMedica Braggs HospitalComment on above: Performed By: #### CBCTrang, 60072-4, BMP, ####[facility] ([id number])[address], [address], [place] [address]Onrjcfdjitd distribution width (RBC) [Ratio]17.4 %High11.5-15.0Pro[facility]ica Terrell HospitalComment on above: Performed By: #### OG, 49084-6, BMP, ####[facility] ([id number])[address], [address] [place] [address] 71169Hntzekznrs (Bld) [Volume fraction]32.9 %Ivh86-52HymKecpjp Terrell HospitalComment on above:Performed By: #### CBCTrang, 81956-9, BMP, ####[facility] ([id number])[address], [address] [place] [address] 18699Ouhijvhpew (Bld) [Mass/Vol] 11.0 g/dLLow13.0-17.0[facility] HospitalComment on above:Performed By: #### CBCTrang, 83811-6, BMP, ####[facility] ([id number])[address] [address] [place] [address] 26258Dwfieqfxmxm (Bld) [#/Vol] 2.7 10*3/uLNormal1.0-3.5Pro[facility] HospitalComment on above:Performed By: #### CBCA, 80038-8, BMP, ####[facility] ([id number])[address] [address], [place] [address]Blwgyxcrguc/100 WBC (Bld) 14.6 %NormalProMedica Terrell HospitalComment on above:Performed By: #### CBCA, 96184-3, BMP, ####[facility] ([id number])[address], [address] [place] [address] 68275YIV (RBC) [Entitic mass]29.9 qhOcepzi22-30 [facility] HospitalComment on above:Performed By: #### CBCA, 09713-9, BMP, ####[facility] ([id number])[address], [address] [place] [address] 41984LKPN (RBC) [Mass/Vol]33.3 g/kRSyzpow68-23VdrDdrgtx Terrell HospitalComment on above:Performed By: #### CBCA, 90961-9, BMP, ####[facility] ([id number])[address], [address] [place] [address] 33708DME (RBC) [Entitic vol]90 oFQncakn90-649SfuYambef [facility]rell HospitalComment on above:Performed By: #### CBCA, 26540-3, BMP, ####[facility] ([id number])[address], [address] [place] [address] 35989Zmallmpso (Bld) [#/Vol]2.9 10*3/uLHigh0-0.9Pro[facility] HospitalComment on above:Performed By: #### CBCA, 59776-3, BMP, ####[facility] ([id number])[address], [address] [place] [address] 11262Lzlgtcjgf/100 WBC (Bld)15.8 %NormalProMedica Terrell HospitalComment on above:Performed By: #### CBCA, 47813-8, BMP, 96218-0 ####[facility] ([id number])[address], [address] [place] [address] 55241Mzcbhhnbasl/100 WBC (Bld)68.9 %NormalProMedica Terrell HospitalComment on above:Performed By: #### CBCTrang, 12892-0, BMP, ####[facility] ([id number])[address], [address] [place] [address] 42185WKVMEAZWC9+AbnormalNONEProMedica Terrell HospitalComment on above:Performed By: #### CBCTrang, 05653-7, BMP, ####[facility] ([id number])[address], [address] [place] [address] 52473Zdtzxepe mean volume (Bld) [Entitic vol]8.8 fLNormal7-12[facility] HospitalComment on above:Performed By: #### OG, 90107-7, BMP, ####[facility] ([id number])[address], [address] [place] [address] 60088Ifjmmclky (Bld) [#/Vol]401 10*3/tHVktkym624-887ZfgNxylys [facility]rell HospitalComment on above:Performed By: #### CBCTrang, 36468-7, BMP, ####[facility] ([id number])[address], [address] [place] [address] 07914LLJ COUNT3.66 X10E12/LLow4.10-5.70[facility] HospitalComment on above:Performed By: #### CBCA, 77430-9, BMP, ####[facility] ([id number])[address], [address] [place] [address] 64042YNL (Bld) [#/Vol]18.6 10*3/uLHigh4.0-11.0[facility] HospitalComment on above:Performed By: #### CBCA, 54456-5, BMP, ####[facility] ([id number])[address], [address] [place] [address] 59407WDQJETLLXDvu 06-70-0394Fvdyboumqs (Bld) [Mass/Vol]11.0 g/dLLow13.0-17.0[facility] HospitalComment on above:Performed By: #### 718-7, PLTCT, PINR ####[facility] ([id number])[address], [address] [place] [address] 49542 Heparin unfractionated Chromogenic method Qn (PPP)on 72-49-8752EUKS XA UFH0.33 IU/mLNormal0.30-0.70[facility] HospitalComment on above:Result Comment: Optimal time for testing is 6 hrs post dosageThis test is specific for monitoring patientson UFH, and is not recommended for use withother Anti-Xa medications.Performed By: #### 3274-8, 84591-6 ####[facility] ([id number])[address] [address] [place] [address] 77904GGJKNHRKEsi 07-14-2023 Magnesium [Mass/Vol]2.0 mg/dLNormal1.8-2.6[facility] HospitalComment on above:Performed By: #### 3274-8, 10560-8 ####[facility] ([id number])[address] [address]Mfbupacey [Mass/Vol]1.6 mg/dLLow1.8-2.6[facility] HospitalComment on above:Performed By: #### CBCA, 60300-5, BMP, 49859-9 ####[facility] ([id number])[address] [address]ZWIAWBJH COUNT AND MPVon 53-79-4096Mspivytd mean volume (Bld) [Entitic vol]8.7 fLNormal7-12[facility] HospitalComment on above:Performed By: #### 718-7, PLTCT, PINR ####[facility] ([id number])[address], [address], [place] [address]Ptebxwngu (Bld) [#/Vol]418 10*3/uMLldlyk064-438JibNsvsap [place] HospitalComment on above:Performed By: #### 718-7, PLTCT, PINR ####[facility] ([id number])[address], [address], [place] [address]HDFHYRQ AND INRon 08-66-4091GJH Coag (PPP) [Relative time]1.4 {INR}High0.8-1.1PHolmes County Joel Pomerene Memorial HospitalComment on above:Performed By: #### 718-7, PLTCT, PINR ####[facility] ([id number])[address], [address] [place] [address] 12542GJ Coag (PPP) [Time]15.9 sHigh9.8-13.2 [facility] HospitalComment on above:Performed By: #### 718-7, PLTCT, PINR ####[facility] ([id number])[address], [address] [place] [address] 44899IDFYEQHSSHJ TB GOLDon 00-72-0339PBBPWET MINUS NIL1.58 IU/mLNormal>=0.50 [facility] HospitalNIL RESULT0.11 IU/mLNormal<=8.00[facility] HospitalTB INTERPRETATIONSee belowNormalProLicking Memorial HospitalComment on above:Result Comment: NOTEInfection with M. tuberculosis complex is unlikely. If latenttuberculosis infection is highly suspected, a negative result doesnot rule out the infection. Specimens from immunocompromised patientsand those <5 years of age may show false negative results. In case ofa contact investigation, please repeat 8-12 weeks after a knownexposure. Test Performed By: [facility] [address] [place] [address] Top Cleaner: Demond Jeff III, M.D. [facility] #[id number] RESULTNegativeNormal [facility]rell HospitalTB1 AG MINUS NIL0.00 IU/mLNormal<0.35[facility] HospitalTB2 AG MINUS NIL0.00 IU/mLNormal<0.35Pro[facility]ica [facility] HospitalaPTT Coag (PPP) [Time]on 52-90-3609jPMI Coag (Bld) [Time]46 eWocv59-78HksFsfltl [facility] HospitalComment on above:Performed By: #### OG, 51543-6, ISELA, ####[facility] ([id number])[address], [address], [place] [address]FOGNV METABOLIC PANLon 95-52-3291Ajyws gap [Moles/Vol]6 mmol/LNormal5-15 [facility] HospitalComment on above:Performed By: #### ISELA FOLEY, ####[facility] ([id number])[address], [address], [place] [address]Wqmiyom [Mass/Vol]7.9 mg/dLLow8.5-10.5[facility] HospitalComment on above:Performed By: #### ISELA FOLEY, ####[facility] ([id number])[address], [address], [place] [address]Kfvwlaah [Moles/Vol]93 mmol/QHto06-415DfnJqvugo [facility]rell HospitalComment on above:Performed By: #### ISELA FOLEY, ####[facility] ([id number])[address], [address], [place] [address]RW[address] [Moles/Vol]32 mmol/AVrnuuk95-91GlrIqkphb [facility] HospitalComment on above:Performed By: #### ISELA FOLEY, ####[facility] ([id number])[address], [address], [place] [address] Creatinine [Mass/Vol]0.33 mg/dLLow0.60-1.30[facility] HospitalComment on above:Result Comment: METHOD TRACEABLE TO IDMS STANDARDPerformed By: #### ISELA FOLEY, ####[facility] ([id number])[address], [address] [place] [address] 74769nXLY (CKD-EPI) NON-RACE DEPENDENT>90Normal>59[facility] HospitalComment on above:Result Comment: Reported eGFR is based on theCKD-EPI 2020 equation that doesnot use a race coefficient.Performed By: #### ISELA FOLEY, ####[facility] ([id number])[address] [address] [place] [address] 20361Gvzzumh [Mass/Vol]97 mg/sSJbvjph55-94GqtGfkelg [facility]gs HospitalComment on above:Performed By: #### ISELA FOLEY, ####[facility] ([id number])[address] [address] [place] [address] 69545 Potassium [Moles/Vol]4.1 mmol/LNormal3.5-5.0[facility] HospitalComment on above:Performed By: #### ISELA FOLEY, ####[facility] ([id number])[address] [address] [place] [address] 43074Arcsrf [Moles/Vol]131 mmol/OWoq453-126PxmOfssdv [facility] HospitalComment on above:Performed By: #### ISELA FOLEY, ####[facility] ([id number])[address] [address] [place] [address] 96261Yiyx nitrogen [Mass/Vol]8 mg/dLNormal5-27[facility] HospitalComment on above:Performed By: #### ISELA FOLEY, ####[facility] ([id number])[address], [address] [place] [address] 25178JHM AND AUTO DIFFon 28-52-0625ZPJBXQOX BASOPHIL0.1 X10E9/LNormal0.0-0.2[facility] HospitalComment on above:Performed By: #### ISELA FOLEY, ####[facility] ([id number])[address], [address] [place] [address] 65410 ABSOLUTE BXCVJIKPKL59.5 X10E9/LHigh1.5-6.6[facility] HospitalComment on above:Performed By: #### ISELA FOLEY, ####[facility] ([id number])[address], [address] [place] [address] 05657Dzmnblxni/100 WBC (Bld)0.4 %NormalProMercer County Community Hospitalca Braggs HospitalComment on above:Performed By: #### ISELA FOLEY, ####[facility] ([id number])[address], [address] [place] [address] 71671Llamnqzfkjz (Bld) [#/Vol]0.1 10*3/uLNormal0.0-0.4ProMercer County Community Hospitalca Braggs HospitalComment on above:Performed By: #### ISELA FOLEY, ####[facility] ([id number])[address] [address] [place] [address] 07895 Eosinophils/100 WBC (Bld)0.4 %NormalProMercer County Community Hospitalca Braggs HospitalComment on above: Performed By: #### ISELA FOLEY, ####[facility] ([id number])[address] [address] [place] [address] 93561Rluldgaebhd distribution width (RBC) [Ratio]17.5 %High11.5-15.0ProMercer County Community Hospitalca Braggs HospitalComment on above: Performed By: #### ISELA FOLEY, ####[facility] ([id number])[address], [address] [place] [address] 19909Mndxyzhsfb (Bld) [Volume fraction]32.0 %Dxj23-56XfyKcnpqs [facility] HospitalComment on above:Performed By: #### CBCTrang BMP, ####[facility] ([id number])[address], [address] [place] [address] 82123Dfccgpwizk (Bld) [Mass/Vol]10.5 g/dLLow 13.0-17.0[facility] HospitalComment on above:Performed By: #### CBCTrang, BMP, ####[facility] ([id number])[address], [address] [place] [address] 12914Zkduwsndkjd (Bld) [#/Vol]2.2 10*3/uLNormal1.0-3.5Pro[facility] HospitalComment on above:Performed By: #### CBCISELA Costello, ####[facility] ([id number])[address], [address] [place] [address] 45513 Lymphocytes/100 WBC (Bld)11.4 %NormalProMedica Braggs HospitalComment on above: Performed By: #### CBCTrang, BMP, ####[facility] ([id number])[address], [address] [place] [address] 51754TFZ (RBC) [Entitic mass] 29.7 duMoevox28-05XjsPaflvo [facility] HospitalComment on above:Performed By: #### CBCA, BMP, ####[facility] ([id number])[address], [address] [place] [address] 05755EEOY (RBC) [Mass/Vol]32.9 g/fKIaxywm76-32OrrOydtkq [facility] HospitalComment on above:Performed By: #### CBCA, BMP, ####[facility] ([id number])[address], [address] [place] [address] 90440RNV (RBC) [Entitic vol]90 qPOwsgzp94-926NgwXsgkyi [facility] HospitalComment on above: Performed By: #### CBCISELA Costello, ####[facility] ([id number])[address], [address] [place] [address] 27990Rdeirxdvt (Bld) [#/Vol]3.3 10*3/uLHigh0-0.9[facility] HospitalComment on above:Performed By: #### CBCTrang, BMP, ####[facility] ([id number])[address], [address] [place] [address] 62446Jlneqsdtq/100 WBC (Bld)17.3 %NormalProMedica Terrell HospitalComment on above:Performed By: #### CBCISELA Costello, ####[facility] ([id number])[address], [address] [place] [address] 16842 Neutrophils/100 WBC (Bld)70.5 %NormalProMedica Terrell HospitalComment on above: Performed By: #### OG, ISELA, ####[facility] ([id number])[address], [address] [place] [address] 97036Gfqhftpq mean volume (Bld) [Entitic vol]8.7 fLNormal7-12[facility] HospitalComment on above:Performed By: #### CBCTrang, BMP, ####[facility] ([id number])[address], [address] [place] [address] 05958Wfippytir (Bld) [#/Vol]379 10*3/uLNormal 150-450[facility] HospitalComment on above:Performed By: #### CBCA, BMP, ####[facility] ([id number])[address], [address] [place] [address] 47454RDX COUNT3.55 X10E12/LLow4.10-5.70[facility] Comment on above:Performed By: #### ISELA FOLEY, 98029-1 ####[facility] ([id number])[address], [address] [place] [address] 90584MMW (Bld) [#/Vol]19.2 10*3/uLHigh4.0-11.0[facility] HospitalComment on above: Performed By: #### ISELA FOLEY, ####[facility] ([id number])[address], [address] [place] [address] 22859IVL 12-[place] 77-07-3846MXJ 12-[id number]#1.00TIFFNormKettering Health MiamisburgMAGNESIUMon 83-48-1939Umojrzmjh [Mass/Vol]1.8 mg/dLNormal1.8-2.6 [place] [facility] HospitalComment on above:Performed By: #### ISELA FOLEY, 62286-5 ####[facility] ([id number])[address] [address]RKU - [place] Reporton 01-67-7335WPP - [place] Report [id number]#1.00TIFFNoPomerene HospitalRAD - MISCon 44-04-6391OPD - MISC [id number]#1.00TIFFNoPomerene HospitalaPTT Coag (PPP) [Time]on 16-79-3176pGNI Coag (Bld) [Time]70 aMdll98-15 [place] [facility] HospitalComment on above:Performed By: #### 57301-7 ####[facility] ([id number])[address], [address] [place] [address] 23138hJZC Coag (Bld) [Time]71 bGyfz52-91QotHbvoyx Terrell HospitalComment on above: Performed By: #### 93409-1 ####[facility] ([id number])[address], [address] [place], [place] [address]QUAOD METABOLIC PANLon 96-85-0793Pbeci gap [Moles/Vol]7 mmol/LNormal5-15[facility]rell HospitalComment on above:Performed By: #### CBCTrang, BMP, , 16646-4 ####[facility] ([id number])[address], [address] [place], [place] [address]Pllhprp [Mass/Vol]8.4 mg/dL Low8.5-10.5Pro[facility]ica Terrell HospitalComment on above:Performed By: #### OG, BMP, , 47570-6 ####[facility] ([id number])[address] [place], [place] [address]Tavvmqwc [Moles/Vol]91 mmol/VArf58-060XdtNaajrg [facility]rell HospitalComment on above:Performed By: #### OG, BMP, , 11354-7 ####[facility] ([id number])[address], [address], [place] [address]BH0 [Moles/Vol]36 mmol/JKjrc52-93HnwAmuodq [facility]rell HospitalComment on above:Performed By: #### CBCA, BMP, , 77074-3 ####[facility] ([id number])[address], [address] [place], [place] [address]Rtuvonvuer [Mass/Vol]0.46 mg/dLLow0.60-1.30[facility]ica Terrell HospitalComment on above:Result Comment: METHOD TRACEABLE TO IDMS STANDARDPerformed By: #### OG, BMP, , 41092-9 ####[facility] ([id number])[address] [address], [place] [address]cKHB (CKD-EPI) NON-RACE DEPENDENT>90Normal>59ProLicking Memorial HospitalComment on above:Result Comment: Reported eGFR is based on theCKD-EPI 2020 equation that doesnot use a race coefficient.Performed By: #### ISELA FOLEY, , 87891-0 ####[facility] ([id number])[address] [address] [place] [address]Fycnyoh [Mass/Vol]105 mg/zCWjoh69-32DqfKdnbaeLicking Memorial HospitalComment on above:Performed By: #### ISELA FOLEY, , 68783-3 ####[facility] ([id number])[address] [address]Jerbohflc [Moles/Vol]4.5 mmol/LNormal3.5-5.0[facility] Comment on above:Performed By: #### ISELA FOLEY, , 11296-1 ####[facility] ([id number])[address] [address] [place] [address] Sodium [Moles/Vol]134 mmol/EAounso848-318TqvLdxkxm [place] HospitalComment on above:Performed By: #### ISELA FOLEY, , 73991-3 ####[facility] ([id number])[address] [address] [place] [address] 79[address]Mgrf nitrogen [Mass/Vol]11 mg/dLNormal5-27ProLicking Memorial HospitalComment on above:Performed By: #### ISELA FOLEY, , 72230-5 ####[facility] ([id number])[address] [address] [place] [address] 83812LZJ AND AUTO DIFFon 27-86-5856BQKMETQQ BASOPHIL0.1 X10E9/LNormal0.0-0.2[facility] Comment on above:Performed By: #### CBCA, BMP, , 09546-9 ####[facility] ([id number])[address], [address] [address] ABSOLUTE WNFJRUBSVB80.3 X10E9/LHigh1.5-6.6ProMer[facility] County Community Hospitalca [facility] HospitalComment on above:Performed By: #### CBCA, BMP, , ####[facility] ([id number])[address], [address], [place] [address]Jnkcrtxyh/100 WBC (Bld)0.6 %NormalProMarion Hospital HospitalComment on above:Performed By: #### CBCA, BMP, , 06321-9 ####[facility] ([id number])[address], [address], [place] [address]Jdyxzhbydob (Bld) [#/Vol]0.0 10*3/uLNormal 0.0-0.4[facility] HospitalComment on above:Performed By: #### CBCTrang, BMP, , 76459-6 ####[facility] ([id number])[address] [address], [place] [address]Njnrcelbdqn/100 WBC (Bld)0.1 %NormalProMarion Hospital HospitalComment on above:Performed By: #### CBCA, BMP, , 90030-1 ####[facility] ([id number])[address], [address], [place] [address]Asjysogptmi distribution width (RBC) [Ratio]17.6 %High11.5-15.0[facility] HospitalComment on above:Performed By: #### CBCA, BMP, , 08835-7 ####[facility] ([id number])[address], [address] [place], [place] [address]Udfugnqaud (Bld) [Volume fraction]34.8 %Ftk39-64YbmUkmwyd [facility] Comment on above:Performed By: #### CBCTrang, BMP, , 38438-4 ####[facility] ([id number])[address], [address] [address] Hemoglobin (Bld) [Mass/Vol]11.5 g/dLLow13.0-17.0ProMer[facility] County Community Hospitalca [facility] HospitalComment on above:Performed By: #### CBCA, BMP, , ####[facility] ([id number])[address], [address] [place] [address]27[address]Fwrqtpqmojr (Bld) [#/Vol]2.4 10*3/uLNormal1.0-3.5[facility] HospitalComment on above: Performed By: #### CBCA, BMP, , ####[facility] ([id number])[address], [address], [place] [address]Wfcffeirchr/100 WBC (Bld) 11.2 %NormalProLicking Memorial HospitalComment on above:Performed By: #### CBCA, BMP, , 78025-5 ####[facility] ([id number])[address] [facility] [address], [place] [address]YJK (RBC) [Entitic mass]30.0 jcEptbdg59-18 [facility] HospitalComment on above:Performed By: #### CBCA, BMP, , ####[facility] ([id number])[address], [address], [place] [address]OYEJ (RBC) [Mass/Vol]33.1 g/iUFznazm30-87VcmBhnhmo [facility] HospitalComment on above:Performed By: #### CBCA, BMP, , ####[facility] ([id number])[address], [address] [place] [address] 91021FMM (RBC) [Entitic vol]91 uKBafzoz39-237YqrTeyijq [facility]rell HospitalComment on above:Performed By: #### CBCA, BMP, , 43376-6 ####[facility] ([id number])[address], [address] [place] [address]Asvqhbkqj (Bld) [#/Vol]3.7 10*3/uLHigh0-0.9[facility] HospitalComment on above:Performed By: #### CBCA, BMP, , 17311-3 ####[facility] ([id number])[address], [address] [place] [address] 21400Ldwqbxpwi/100 WBC (Bld)17.3 %NormalProMedica Terrell HospitalComment on above:Performed By: #### CBCA, BMP, , 13777-5 ####[facility] ([id number])[address], [address] [place] [address] 12389Orpweobnshi/100 WBC (Bld)70.8 %NormalProMercer County Community Hospitalca Terrell HospitalComment on above:Performed By: #### CBCA, BMP, , 24033-2 ####[facility] ([id number])[address], [address] [place] [address] 01939Pzdvojup mean volume (Bld) [Entitic vol]9.1 fLNormal7-12[facility] HospitalComment on above:Performed By: #### CBCA, BMP, , 39696-7 ####[facility] ([id number])[address], [address] [place] [address] 08744Ktgdbsekz (Bld) [#/Vol]389 10*3/uKUqqayl660-510GfjDxhjpt [facility] Comment on above:Performed By: #### ISELA FOLEY, , 66888-8 ####[facility] ([id number])[address], [address] [place] [address] 12048MMP COUNT3.84 X10E12/LLow4.10-5.70[facility] HospitalComment on above: Performed By: #### ISELA FOLEY, , 72221-6 ####[facility] ([id number])[address], [address] [place] [address] 03359RLD (Bld) [#/Vol]21.7 10*3/uLHigh4.0-11.0[facility] HospitalComment on above:Performed By: #### ISELA FOLEY, , 15735-4 ####[facility] ([id number])[address] [address] [place] [address] 31668WUDXXZDOOpt 67-81-9684Cklrrfejd [Mass/Vol] 1.9 mg/dLNormal1.8-2.6[facility] HospitalComment on above:Performed By: #### ISELA FOLEY, , 95894-1 ####[facility] ([id number])[address] [address] [place] [address] 50089wEHB Coag (PPP) [Time]on 35-60-9129cOBR Coag (Bld) [Time]96 oIoad04-12TkuYnbppm Terrell HospitalComment on above:Performed By: #### 37660-6 ####[facility] ([id number])[address] [address] [place] [address] 78300sRJP Coag (Bld) [Time]62 s Jafv38-91BsdQrxjqw [facility] HospitalComment on above:Performed By: #### 81308-8 ####[facility] ([id number])[address] [address] [place] [address] 31432lHTC Coag (Bld) [Time]86 uMkqp76-58NwbFetcqg [facility] HospitalComment on above:Performed By: #### CBCTrang, BMP, , 32197-7 ####[facility] ([id number])[address], [address], [place] [address]HSYJT METABOLIC PANLon 34-59-1981Icoqf gap [Moles/Vol]5 mmol/LNormal5-15[facility] HospitalComment on above:Performed By: #### CBCA, BMP, , PINR, 85074-2 ####[facility] ([id number])[address], [address] [place], [place] [address]Rmnuotz [Mass/Vol]8.1 mg/dLLow8.5-10.5[facility] HospitalComment on above:Performed By: #### CBCTrang, BMP, , PINR, 98436-9 ####[facility] ([id number])[address], [address], [place] [address]Giyllyoc [Moles/Vol]90 mmol/SYcr81-762JdsKerzys [facility] HospitalComment on above:Performed By: #### CBCA, BMP, , PINR, 38200-2 ####[facility] ([id number])[address], [address] [place], [place] [address]MT0 [Moles/Vol]35 mmol/L Qavj86-15CgyFkfnkt [facility] HospitalComment on above:Performed By: #### CBCA, BMP, , PINR, 13668-7 ####[facility] ([id number])[address], [address], [place] [address]Rgcrdesaeh [Mass/Vol]0.36 mg/dLLow0.60-1.30 [facility] HospitalComment on above:Result Comment: METHOD TRACEABLE TO IDMS STANDARDPerformed By: #### CBCA, BMP, 52284-6, PINR, 83209-4 ####[facility] ([id number])[address] [address], [place] [address]rDTE (CKD-EPI) NON-RACE DEPENDENT>90Normal>59ProLicking Memorial HospitalComment on above:Result Comment: Reported eGFR is based on theCKD-EPI 2020 equation that doesnot use a race coefficient.Performed By: #### OG, ISELA, , PINR, 66952-2 ####[facility] ([id number])[address] [address]Owkvtoo [Mass/Vol]97 mg/qLAkrays85-58RpyVeupel [facility] HospitalComment on above:Performed By: #### ISELA FOLEY, , PINR, 51646-9 ####[facility] ([id number])[address] [address] [place] [address] 018[address]Jgkgmkloo [Moles/Vol]3.7 mmol/LNormal3.5-5.0[facility] Comment on above:Performed By: #### OG, ISELA, , PINR, 68266-9 ####[facility] ([id number])[address] [address] Sodium [Moles/Vol]130 mmol/TVvq744-188IhiFahyha [facility] HospitalComment on above: Performed By: #### CBCTrang, BMP, , PINR, 96608-3 ####[facility] ([id number])[address] [address] [place] [address] 92035Dsmg nitrogen [Mass/Vol]13 mg/dLNormal5-27ProLicking Memorial HospitalComment on above:Performed By: #### OG, ISELA, 88569-0, PINR, 85881-5 ####[facility] ([id number])[address] [address] [place] [address] 03329SCU AND AUTO DIFFon 39-18-3929Exsy form neutrophils/100 WBC (Bld)1.0 %NormalHolmes County Joel Pomerene Memorial HospitalComment on above:Performed By: #### CBCA, BMP, , PINR, 52027-9 ####[facility] ([id number])[address] [address] [place] [address] 39603Zvzneahbpla (Bld) [#/Vol]0.2 10*3/uLNormal0.0-0.4[facility] Comment on above:Performed By: #### CBCA, BMP, , PINR, 89112-9 ####[facility] ([id number])[address] [address] [place] [address] Eosinophils/100 WBC (Bld)1.0 %NormalProMarion Hospital HospitalComment on above: Performed By: #### CBCA, BMP, , PINR, 21077-8 ####[facility] ([id number])[address] [address]Iycokrtwiip distribution width (RBC) [Ratio]17.5 %High11.5-15.0[facility] Comment on above:Performed By: #### CBCA, BMP, , PINR, 55179-5 ####[facility] ([id number])[address] [address] Hematocrit (Bld) [Volume fraction]33.0 %Lvy83-45UuvMgqmjdLicking Memorial HospitalComment on above:Performed By: #### CBCA, BMP, , PINR, 45044-2 ####[facility] ([id number])[address] [address] [place] [address] Hemoglobin (Bld) [Mass/Vol]10.8 g/dLLow13.0-17.0[facility] HospitalComment on above:Performed By: #### CBCA, BMP, 69086-9, PINR, 87430-1 ####[facility] ([id number])[address], [address] [address] LYMPHOCYTE, ATYPICAL2.0 %NormalProMedica Terrell HospitalComment on above: Performed By: #### CBCA, BMP, 93700-2, PINR, 17832-2 ####[facility] ([id number])[address], [address], [place] [address]Xydydpndfad (Bld) [#/Vol]1.0 10*3/uLNormal1.0-3.5[facility] HospitalComment on above: Performed By: #### CBCA, BMP, , PINR, 38955-9 ####[facility] ([id number])[address], [address], [place] [address]Lvtbwscdgfr/100 WBC (Bld)3.0 %NormalProMedica Terrell HospitalComment on above:Performed By: #### CBCA, BMP, , PINR, 59123-9 ####[facility] ([id number])[address], [address] [place] [address] 57154UFD (RBC) [Entitic mass] 29.7 giTwsdbj00-22AgwKsirgt [facility] HospitalComment on above:Performed By: #### CBCA, BMP, 67275-7, PINR, 53215-5 ####[facility] ([id number])[address], [address], [place] [address]XJSX (RBC) [Mass/Vol]32.7 g/aOQlfevt88-65PxsStvhwc [facility] HospitalComment on above:Performed By: #### CBCA, BMP, 30566-2, PINR, 27396-8 ####[facility] ([id number])[address], [address], [place] [address]BDH (RBC) [Entitic vol]91 mMBgtsqb01-474XasDnphqn [facility] HospitalComment on above:Performed By: #### CBCA, BMP, 50244-1, PINR, 57754-5 ####[facility] ([id number])[address], [address], [place] [address]Zfbodpziwfctos/100 WBC (Bld)2.0 %Normal [facility] HospitalComment on above:Performed By: #### CBCA, BMP, 91060-1, PINR, 75672-2 ####[facility] ([id number])[address], [address] [place] [address] 38412Cxjaakfew (Bld) [#/Vol]1.9 10*3/uLHigh0-0.9[facility] HospitalComment on above:Performed By: #### CBCA, BMP, , PINR, 49139-3 ####[facility] ([id number])[address], [address], [place] [address]Tpoztjgrd/100 WBC (Bld)9.0 %NormalProMedica Terrell HospitalComment on above:Performed By: #### CBCA, BMP, 43536-6, PINR, 15499-4 ####[facility] ([id number])[address], [address], [place] [address]XLFKVOJRV2.0 % NormalProMedica Terrell HospitalComment on above:Performed By: #### CBCA, BMP, 75699-0, PINR, 70253-4 ####[facility] ([id number])[address], [address] [place] [address] 45743Vuhfaorfcsh (Bld) [#/Vol]17.1 10*3/uLHigh 1.5-6.6[facility] HospitalComment on above:Performed By: #### CBCA, BMP, 65178-0, PINR, 22865-5 ####[facility] ([id number])[address], [address], [place] [address]Htbfzwqs mean volume (Bld) [Entitic vol]9.1 fLNormal7-12[facility] HospitalComment on above:Performed By: #### CBCA, BMP, , PINR, 71471-7 ####[facility] ([id number])[address], [address], [place] [address]Nunlkrfjn (Bld) [#/Vol]373 10*3/uLNormal 150-450[facility] HospitalComment on above:Performed By: #### CBCA, BMP, , PINR, 41753-4 ####[facility] ([id number])[address], [address], [place] [address]UIDOLYTSCIGEX5+AbnormalNONEProMedica Terrell HospitalComment on above:Performed By: #### CBCA, BMP, , PINR, 33443-9 ####[facility] ([id number])[address], [address] [place] [address] 42104ZNM COUNT3.64 X10E12/LLow4.10-5.70[facility] HospitalComment on above:Performed By: #### CBCA, BMP, , PINR, 26120-5 ####[facility] ([id number])[address], [address], [place] [address]ORQ NEUTROPHIL 80.0 %NormalProMedica Terrell HospitalComment on above:Performed By: #### CBCA, BMP, , PINR, 87479-0 ####[facility] ([id number])[address], [address], [place] [address]OWFKLCYHGXZ1+AbnormalNONEProMedica Terrell HospitalComment on above:Performed By: #### CBCA, BMP, , PINR, 16421-1 ####[facility] ([id number])[address], [address], [place] [address]RNJ (Bld) [#/Vol]21.0 10*3/uLHigh4.0-11.0[facility] HospitalComment on above:Performed By: #### ISELA FOLEY, , PINR, 75979-9 ####[facility] ([id number])[address] [place] [address] MAGNESIUMon 50-83-3238Qxmdsfvxl [Mass/Vol]1.9 mg/dLNormal1.8-2.6[facility] HospitalComment on above:Performed By: #### 2823-3, , 99617-4 ####[facility] ([id number])[address], [address] [address] Magnesium [Mass/Vol]1.9 mg/dLNormal1.8-2.6[facility] HospitalComment on above:Performed By: #### ISELA FOLEY, , PINR, 48498-2 ####[facility] ([id number])[address], [address], [place] [address]AWFSLPEHYlj 24-32-4424Vjpmqveib [Moles/Vol]4.2 mmol/LNormal3.5-5.0[facility] Comment on above:Performed By: #### 2823-3, , 85397-5 ####[facility] ([id number])[address], [address] [place] [address]Obcqcfsyo [Moles/Vol]4.3 mmol/LNormal3.5-5.0[facility] HospitalComment on above: Performed By: #### 10364-8, 3-3 ####[facility] ([id number])[address], [address], [place] [address]VOESDDW AND INRon 08-90-5836ZYT Coag (PPP) [Relative time]1.7 {INR}High0.8-1.1PPomerene Hospital HospitalComment on above:Performed By: #### CBCA, BMP, 88101-9, PINR, 85678-6 ####[facility] ([id number])[address], [address], [place] [address]TG Coag (PPP) [Time]19.3 sHigh9.8-13.2PPomerene Hospital HospitalComment on above:Performed By: #### CBCA, BMP, 62950-5, PINR, 53221-1 ####[facility] ([id number])[address], [address], [place] [address]fDSP Coag (PPP) [Time]on 17-45-2030xDBQ Coag (Bld) [Time]72 gDfil48-22IsvNwpnlg [facility] Comment on above:Performed By: #### 2823-3, 43301-2, 51340-7 ####[facility] ([id number])[address], [place] [address]lNYT Coag (Bld) [Time]88 iZiru59-09JvtXsnfzp [facility] SystemaPTT Coag (Bld) [Time]58 sHigh 26-37Pro[facility]gs HospitalComment on above:Performed By: #### CBCA, BMP, 27094-3, PINR, 92829-5 ####[facility] ([id number])[address], [address], [place] [address]eYMP Coag (Bld) [Time]78 eWder21-74VwpNxsfin [facility]gs HospitalComment on above:Performed By: #### 53742-3, 2823-3 ####[facility] ([id number])[address], [address], [place] [address]VAJRV METABOLIC PANLon 38-42-4653Hkyrj gap [Moles/Vol]8 mmol/LNormal5-15ProLicking Memorial HospitalComment on above:Performed By: #### CBCA, BMP, 18949-7, PINR, 60299-0, LIVR ####[facility] ([id number])[address], [place] [address]Eyasyet [Mass/Vol]8.0 mg/dLLow8.5-10.5PHolmes County Joel Pomerene Memorial HospitalComment on above:Performed By: #### CBCA, BMP, 14585-1, PINR, 60350-2, LIVR ####[facility] ([id number])[address], [place] [address]Ehrxwuen [Moles/Vol]87 mmol/ZJfx62-667XoyRisqubLicking Memorial HospitalComment on above:Performed By: #### CBCA, BMP, 35351-4, PINR, 26178-2, LIVR ####[facility] ([id number])[address], [place] [address]QF2 [Moles/Vol]38 mmol/ZAamh52-96TkyCrseqzHolmes County Joel Pomerene Memorial Hospital Comment on above:Performed By: #### CBCA, BMP, 00813-4, PINR, 01830-9, LIVR ####[facility] ([id number])[address], [place] [address]Wmybhanumj [Mass/Vol]0.52 mg/dLLow0.60-1.30[facility] Comment on above:Result Comment: METHOD TRACEABLE TO IDMS STANDARDPerformed By: #### CBCA, BMP, 65136-4, PINR, 31850-5, LIVR ####[facility] ([id number])[address], [place] [address]uJLP (CKD-EPI) NON-RACE DEPENDENT>90Normal>59Pro[facility]ica [facility]rell HospitalComment on above:Result Comment: Reported eGFR is based on theCKD-EPI 2020 equation that doesnot use a race coefficient.Performed By: #### ISELA FOLEY, 11499-1, PINR, 00291-8, LIVR ####[facility] ([id number])[address], [address] [place] [address] 130[address]Ojwpazn [Mass/Vol]102 mg/sSBkxz82-90JdnOuxmts [facility] HospitalComment on above:Performed By: #### OG, ISELA, 77299-9, PINR, 23120-1, LIVR ####[facility] ([id number])[address], [address] [place] [address] Potassium [Moles/Vol]3.6 mmol/LNormal3.5-5.0ProLicking Memorial HospitalComment on above:Performed By: #### ISELA FOLEY, 34956-8, PINR, 59217-1, LIVR ####[facility] ([id number])[address], [address] [place] [address] Sodium [Moles/Vol]133 mmol/LAmo811-075YxvJhmygoLicking Memorial HospitalComment on above: Performed By: #### ISELA FOLEY, 71864-3, PINR, 59981-3, LIVR ####[facility] ([id number])[address], [address] [place] [address] 000[address]Xjjr nitrogen [Mass/Vol]15 mg/dLNormal5-27Pro[facility] Hospital HospitalComment on above:Performed By: #### ISELA FOLEY, 46320-4, PINR, 12598-3, LIVR ####[facility] ([id number])[address], [address] [place] [address] [id number] AND AUTO DIFFon [id number] BASOPHIL0.1 X10E9/LNormal0.0-0.2PHolmes [facility] Comment on above:Performed By: #### OG, BMP, 82766-6, PINR, 20765-0, LIVR ####[facility] ([id number])[address], [address], [place] [address]FZFHJEXC HGCPICKLIC88.8 X10E9/LHigh1.5-6.6Pro[facility]rell HospitalComment on above:Performed By: #### CBCA, BMP, 57076-5, PINR, 94195-9, LIVR ####[facility] ([id number])[address], [address] [address] Basophils/100 WBC (Bld)0.2 %NormalProMedica Terrell HospitalComment on above: Performed By: #### CBCA, BMP, 36457-1, PINR, 37481-0, LIVR ####[facility] ([id number])[address], [address] [place] [address] 95326Ttqhvjcmgcu (Bld) [#/Vol]0.0 10*3/uLNormal0.0-0.4ProMedica [facility]aggs HospitalComment on above: Performed By: #### CBCA, BMP, 39173-8, PINR, 30086-7, LIVR ####[facility] ([id number])[address], [address], [place] [address]Yjjmdqrgajf/100 WBC (Bld)0.1 %NormalProMedica Terrell HospitalComment on above:Performed By: #### CBCA, BMP, 81752-4, PINR, 79526-5, LIVR ####[facility] ([id number])[address], [address] [place] [address] 19514Xntdsredmwf distribution width (RBC) [Ratio]17.3 %High11.5-15.0ProMedica Terrell HospitalComment on above: Performed By: #### CBCA, BMP, 53823-4, PINR, 23394-3, LIVR ####[facility] ([id number])[address], [address], [place] [address]Pzcrmidglj (Bld) [Volume fraction]35.2 %Uwu63-88PggHrefba [place] HospitalComment on above: Performed By: #### CBCA, BMP, 01778-9, PINR, 52755-5, LIVR ####[facility] ([id number])[address], [address], [place] [address]Rynaladzhx (Bld) [Mass/Vol]11.5 g/dLLow13.0-17.0ProMercer County Community Hospitalca Braggs HospitalComment on above: Performed By: #### CBCA, BMP, 31901-1, PINR, 40725-6, LIVR ####[facility] ([id number])[address], [address] [place] [address] 25634Pjgsjhpqekd (Bld) [#/Vol]2.9 10*3/uLNormal1.0-3.5ProMedica [facility]aggs HospitalComment on above: Performed By: #### CBCA, BMP, 50329-3, PINR, 30115-5, LIVR ####[facility] ([id number])[address], [address], [place] [address]Sclkwtoaqlg/100 WBC (Bld)11.9 %NormalProMarion Hospital HospitalComment on above:Performed By: #### CBCA, BMP, 93417-6, PINR, 76780-4, LIVR ####[facility] ([id number])[address], [address], [place] [address]AMH (RBC) [Entitic mass] 29.7 bzZffejd98-18BgmTjkwvy [place] HospitalComment on above:Performed By: #### CBCA, BMP, 94464-5, PINR, 79213-4, LIVR ####[facility] ([id number])[address], [address], [place] [address]YVYG (RBC) [Mass/Vol]32.6 g/eUKutapy29-77EurSuehec Terrell HospitalComment on above:Performed By: #### CBCA, BMP, 97751-7, PINR, 03137-1, LIVR ####[facility] ([id number])[address], [address] [place] [address] 48881FLK (RBC) [Entitic vol]91 nWPijbxj97-899JpsVrcnnw Terrell HospitalComment on above:Performed By: #### CBCA, BMP, 06450-9, PINR, 64044-0, LIVR ####[facility] ([id number])[address], [address] [place] [address] 56012Jxbjdfbgr (Bld) [#/Vol]3.9 10*3/uL High0-0.9ProMedica Terrell HospitalComment on above:Performed By: #### CBCA, BMP, 72587-1, PINR, 57605-3, LIVR ####[facility] ([id number])[address], [address] [place] [address] 77351Pmzpawsvs/100 WBC (Bld)15.6 %NormalProMedica Terrell HospitalComment on above:Performed By: #### CBCA, BMP, 04586-5, PINR, 90413-8, LIVR ####[facility] ([id number])[address], [address] [place] [address] 13352Lmiwgaqddnm/100 WBC (Bld)72.2 %NormalProMedica Terrell HospitalComment on above:Performed By: #### CBCA, BMP, 86267-9, PINR, 51189-7, LIVR ####[facility] ([id number])[address], [address] [place] [address] 10341Vqmtozqt mean volume (Bld) [Entitic vol]9.3 fLNormal7-12 [facility] Terrell HospitalComment on above:Performed By: #### CBCA, BMP, 39737-6, PINR, 45914-9, LIVR ####[facility] ([id number])[address], [address] [place] [address] 80691Aazgxgijp (Bld) [#/Vol]384 10*3/rLOnkzkj217-545 [facility] Terrell HospitalComment on above:Performed By: #### CBCA, BMP, 80577-7, PINR, 70764-7, LIVR ####[facility] ([id number])[address], [address] [place] [address] 58892WBV COUNT3.87 X10E12/LLow4.10-5.70ProMedica Terrell HospitalComment on above:Performed By: #### CBCA, BMP, 34552-3, PINR, 02984-1, LIVR ####[facility] ([id number])[address], [address] [place] [address] 94820DAL (Bld) [#/Vol]24.7 10*3/uLHigh4.0-11.0ProMedica Terrell HospitalComment on above:Performed By: #### CBCA, BMP, 88237-2, PINR, 03257-4, LIVR ####[facility] ([id number])[address], [address] [place] [address] 15896Bkoz cytometry specialist review Nasir (Unsp spec) [Interp]on 10-84-4462NXQL CYTOMETRY TISSUE/FLUID, NON CSF/NON BALSEE SEPARATE REPORTNormal [facility] Terrell HospitalComment on above:Result Comment: REVIEWED BY DEREK MARTINEZ M.D.Performed By: #### 33143-4 ####[facility] ([id number])[address], [address] [place] [address] 66266ZC BIOPSY LYMPH NODEon 98-49-9444FJ BIOPSY LYMPH NODENormalProMedica Braggs HospitalLIVER PANELon 97-05-4346Eksahlf [Mass/Vol]2.3 g/dLLow3.2-5.3PPomerene Hospital HospitalComment on above:Performed By: #### CBCA, BMP, 53004-8, PINR, 00472-4, LIVR ####[facility] ([id number])[address], [address], [place] [address]RCL [Catalytic activity/Vol]132 U/FMgtp18-157NkbFseyzt [place] HospitalComment on above:Performed By: #### CBCA, BMP, 95058-0, PINR, 67191-3, LIVR ####[facility] ([id number])[address], [address], [place] [address]EMG [Catalytic activity/Vol]35 U/LNormal0-40Pro[facility] HospitalComment on above:Performed By: #### CBCA, BMP, 76602-8, PINR, 15123-0, LIVR ####[facility] ([id number])[address], [address], [place] [address]KNW [Catalytic activity/Vol]22 U/LNormal0-41[facility] HospitalComment on above:Performed By: #### CBCA, BMP, 01542-7, PINR, 29498-0, LIVR ####[facility] ([id number])[address], [address] [place] [address] Bilirubin [Mass/Vol]0.8 mg/dLNormal0.3-1.2PPomerene Hospital HospitalComment on above:Performed By: #### CBCA, BMP, 93505-1, PINR, 23149-8, LIVR ####[facility] ([id number])[address], [address] [place] [address] Bilirubin.direct [Mass/Vol]0.4 mg/dLNormal0.0-0.4[facility] Comment on above:Performed By: #### CBCA, BMP, 82125-1, PINR, 42897-8, LIVR ####[facility] ([id number])[address] [facility], [address] [place] [address] 73943Fewbmzq [Mass/Vol]5.4 g/dLLow6.0-8.0Pro[facility] Hospital HospitalComment on above:Performed By: #### CBCA, BMP, 20493-7, PINR, 82221-0, LIVR ####[facility] ([id number])[address] [facility], [address] [place] [address] 91696 MAGNESIUMon 99-66-5982Qhfgsbjaf [Mass/Vol]2.0 mg/dLNormal1.8-2.6ProMercer County Community Hospitalca Braggs HospitalComment on above:Performed By: #### CBCA, BMP, 25978-3, PINR, 10251-8, LIVR ####[facility] ([id number])[address] [facility] [address] [place] [address] 95196KPPDIRL AND INRon 77-64-8392BCI Coag (PPP) [Relative time]1.6 {INR}High0.8-1.1ProMedRegency Hospital [place] HospitalComment on above:Performed By: #### CBCA, BMP, 71073-0, PINR, 33473-6, LIVR ####[facility] ([id number])[address] [facility] [address] [place] [address] 21634JN Coag (PPP) [Time]18.8 s High9.8-13.2PPomerene Hospital HospitalComment on above:Performed By: #### CBCA, BMP, 81524-8, PINR, 09994-0, LIVR ####[facility] ([id number])[address] [facility], [address] [place] [address] 02270Koemsopv Pathologyon 07-10-2023 Surgical PathologyNormalProMarion Hospital HospitalComment on above:Result Comment: [facility] [address] [place] [address] Surgical Pathology ConsultationPatient Name:TORSTEN HAYWOOD:1955 (Age: 67)Gender:MTaken:4Reported:4Physician(s):Sydnie Garces ([phone])Copy To:Shahbaz Purvis [facility] HospitalzenAccession #:[id number]. Rec. #:[id number]: #[id number] Pathologic DiagnosisLymph node, left retroperitoneal, needle biopsy ([id number]; 07/10/2023): Classic Hodgkin lymphoma. See comment.Morphologically, there are multiple slender coresof tissue showing a fairly prominent population of [...] phenotypically unremarkable T-cells and very few B-cells. Nomonoclonal lymphoid population is detected. Immunoperoxidase stains were performed on paraffin secti ons of the lymph node biopsy (block A) at the referring institution (CD3, CD5, CD10, CD15, CD20, CD30, CD45, and PAX5) and at [facility] in [place], [place] (CD2, CD4, CD7, CD8, CD15, CD30, CD45, GATA3, and PAX5).Independent verification of results: Some of the immunoperoxidase stains were repeated in this case. It was the [facility] consultant's opinion that certain stains critical to the diagnosis had to berepeated in the [facility] immunohistochemistry laboratory to verify the results observed [...] mass, liver lesions, and bulky retroperitoneal lymphadenopathy isnoted. The morphologic and immunophenotypic features support a diagnosis of classic Hodgkin lymphoma. Overall, a classification of nodular sclerosis type is favored, but it is difficult to determine this with certainty on a small needle biopsy specimen. Clinical pathologic correlation is recommended.A comprehensive consult with review of records that included clinical notes and laboratory resultswas performed to assist in the diagnostic assessment of the case.NOTE: The above diagnosis and comment is that of Brittney Elizondo M.D., [facility], [place], [place]. Please see the complete report in the patient's EMR. Report Electronically Signed [facility]/07/22/2023Derek Shah MD _ Flo w Cytometry-Surg/BM/NG Date Reported: 07/22/2023Immunophenotypic analysis of the retroperitoneal node leukocytes demonstrates sparse lymphocytes comprised of a predominance of phenotypically unremarkable T-cells and veryfew B-cells. No monoclonal lymphoid population is detected.Immunophenotyping antibodies tested: CD3, CD5, CD7, CD10, CD19, CD20, CD23, CD45, [place], and Lambda.Immunophenotyping Comment:Immunophenotyping has been used in this diagnostic evaluation. This test was developed and its performance characteristics determined by the [facility] Department. It has not been [...] testing.Electronically Signed OutDerek Martinez MD Preliminary Report ([facility]) Date Reported: 07/16/2023Left retroperitoneal lymph node, CT-guided core biopsy: Lymphoid neoplasm. Final diagnosis pending outside consultation at [facility].Comment:The differential diagnosis would include Hodgkin lymphoma and T-cell lymphoma. Final diagnosis is pending consultation at [facility].Electronically Signed OutDerek Shah MDInterpretation performed at [facility], [address] [place] [address], License number: [id number].Clinical HistoryRight hilar mass, liver lesions and bulky retroperineal LAD, concern for metastatic disease vs. lymphoma, prefer LN.Gross Description Received in formalin labeled YOBANY, left lymph node are three quog-wvl-xfqv toro delicate needle core segments of soft tissue, 1.0, 1.2, and 1.7 cm in length. The specimens are submitted entirely in a single cassette. Received in translucent, watery solution is a damq-edv-gydw toro delicate needle core segment of soft tissue, 1.2 cm in length. The specimen is submitted entirely in RPMI media to flow cytometry. (1, ns, [id number], m6) [facility]KH[facility]/07/10/2023GRSpecimen(s) Received Left lymph nodeFee Codes(s):1; 99930, 37436, 62012(7), 34615-CG, 07084Xwaettfl PathologyOrdered By: Shahida Gooden on 12-61-3570AmdHbhcofPaulding County HospitalaPTT Coag (PPP) [Time]on 46-72-7890pTDB Coag (Bld) [Time]72 cGghb19-86HrdAhgzpq [facility] Health SystemComment on above:Performed By: #### CBCA, BMP, 91665-8, PINR, 10597-5, LIVR ####[facility] ([id number])[address] [facility], [address], [place] [address]DKCDB METABOLIC PANLon 14-26-4464Ttflv gap [Moles/Vol]7 mmol/LNormal5-15[facility]rell HospitalComment on above:Performed By: #### GUSTAVO, 18824-0, BMP, CBCA, 11980-1 ####[facility] ([id number])[address], [address] [place] [address] 09846Hyadbki [Mass/Vol]8.0 mg/dLLow8.5-10.5Pro[facility] Braggs HospitalComment on above:Performed By: #### GUSTAVO, 04757-9, BMP, CBCA, ####[facility] ([id number])[address], [address], [place] [address]Nqphxuqc [Moles/Vol]92 mmol/NEzq25-896YgaXefxga [place] HospitalComment on above:Performed By: #### GUSTAVO, 83635-2, ISELA, CBCA, ####[facility] ([id number])[address], [address] [place] [address] 31964LR1 [Moles/Vol] 33 mmol/OWawg79-10KscZdqupd [place] HospitalComment on above:Performed By: #### GUSTAVO, 91677-8, BMP, CBCA, ####[facility] ([id number])[address] [address] [place] [address] 50522Zgylqcprvh [Mass/Vol]0.46 mg/dLLow0.60-1.30[facility] HospitalComment on above:Result Comment: METHOD TRACEABLE TO IDMS STANDARDPerformed By: #### GUSTAVO, 28564-5, BMP, CBCA, ####[facility] ([id number])[address] [address], [place] [address]eHDG (CKD-EPI) NON-RACE DEPENDENT>90Normal>59Pro[facility]ica Terrell HospitalComment on above:Result Comment: Reported eGFR is based on theCKD-EPI 2020 equation that doesnot use a race coefficient.Performed By: #### GUSTAVO, 29032-5, BMP, CBCA, ####[facility] ([id number])[address], [address] [place] [address] 01539Dmflrlr [Mass/Vol]113 mg/cJQfxu91-31 [facility] HospitalComment on above:Performed By: #### GUSTAVO, 78333-4, BMP, CBCA, ####[facility] ([id number])[address], [address] [place] [address] 07946Yvfqwghof [Moles/Vol]3.9 mmol/LNormal3.5-5.0Pro[facility]aggs HospitalComment on above:Performed By: #### GUSTAVO, 36666-7, BMP, CBCA, ####[facility] ([id number])[address], [address] [place] [address] 50453Qrriuw [Moles/Vol]132 mmol/QYvh130-365PsbOsxrge Braggs HospitalComment on above:Performed By: #### GUSTAVO, 35928-3, BMP, CBCA, ####[facility] ([id number])[address], [address] [place] [address] 42531Uhqo nitrogen [Mass/Vol]20 mg/dLNormal5-27[facility] HospitalComment on above:Performed By: #### GUSTAVO, 28592-5, BMP, CBCA, ####[facility] ([id number])[address], [address] [place] [address] 65692UON AND AUTO DIFFon 36-30-2159JOWN0+AbnormalNONEProMedica Terrell HospitalComment on above:Performed By: #### GUSTAVO, 07439-9, BMP, CBCA, ####[facility] ([id number])[address], [address] [place] [address] 91860Qhcdeiqdxdu (Bld) [#/Vol]0.3 10*3/uLNormal0.0-0.4[facility] HospitalComment on above: Performed By: #### GUSTAVO, 05788-1, BMP, CBCA, ####[facility] ([id number])[address], [address] [place] [address] 97575Tqytmdektti/100 WBC (Bld)1.0 %NormalProMercer County Community Hospitalca Braggs HospitalComment on above:Performed By: #### GUSTAVO, 71552-6, BMP, CBCA, ####[facility] ([id number])[address] [address] [place] [address] 62085Ecdyijgyzgh distribution width (RBC) [Ratio]17.2 %High11.5-15.0ProMercer County Community Hospitalca Terrell HospitalComment on above: Performed By: #### GUSTAVO, 77692-6, ISELA, CBCA, ####[facility] ([id number])[address] [address] [place] [address] 51015Hhmgzyvicg (Bld) [Volume fraction]37.0 %Ldq50-44DaiLvxpez Terrell HospitalComment on above: Performed By: #### GUSTAVO, 46741-9, ISELA, CBCA, ####[facility] ([id number])[address] [address] [place] [address] 43474Qjkrwbldqw (Bld) [Mass/Vol]12.2 g/dLLow13.0-17.0ProMercer County Community Hospitalca Terrell HospitalComment on above: Performed By: #### GUSTAVO, 52084-3, BMP, CBCA, ####[facility] ([id number])[address] [address]Xvbxqpmpbua (Bld) [#/Vol]2.1 10*3/uLNormal1.0-3.5Pro[facility] HospitalComment on above: Performed By: #### GUSTAVO, 82037-2, BMP, CBCA, ####[facility] ([id number])[address], [address] [place] [address] 86685Sruinbwwerv/100 WBC (Bld)7.0 %NormalProMedica Braggs HospitalComment on above:Performed By: #### PINR, 72212-3, BMP, CBCA, ####[facility] ([id number])[address], [address] [place] [address] 06340GTM (RBC) [Entitic mass] 29.6 xdPwujxm58-87LueNdahxc Terrell HospitalComment on above:Performed By: #### PINR, 75136-3, BMP, CBCA, ####[facility] ([id number])[address], [address] [place] [address] 65310XMNT (RBC) [Mass/Vol]33.0 g/zIAokbvk20-39KyyYfpbbz Terrell HospitalComment on above:Performed By: #### PINR, 38813-6, BMP, CBCA, ####[facility] ([id number])[address], [address] [place] [address] 26623NBQ (RBC) [Entitic vol]90 mKCmpmwc43-472UtyIwidlk Braggs HospitalComment on above:Performed By: #### PINR, 45869-2, BMP, CBCA, ####[facility] ([id number])[address], [address] [place] [address] 48832Dljcmeest (Bld) [#/Vol]3.1 10*3/uLHigh0-0.9 [facility] HospitalComment on above:Performed By: #### PINR, 10324-3, BMP, CBCA, ####[facility] ([id number])[address], [address] [place] [address] 75437Cqlvveuvs/100 WBC (Bld)10.0 %NormalProMarion Hospital HospitalComment on above:Performed By: #### GUSTAVO, 62731-6, BMP, CBCA, ####[facility] ([id number])[address], [address] [place] [address] 64178Qhbfffkerqg (Bld) [#/Vol]25.1 10*3/uLHigh1.5-6.6[facility] Comment on above:Performed By: #### GUSTAVO, 09932-8, BMP, CBCA, ####[facility] ([id number])[address], [address] [place] [address] 69051 Platelet mean volume (Bld) [Entitic vol]9.1 fLNormal7-12Pro[facility]gs HospitalComment on above:Performed By: #### GUSTAVO, 47764-5, BMP, CBCA, ####[facility] ([id number])[address], [address] [place] [address] 49242Nzhzbxppr (Bld) [#/Vol]366 10*3/uQLpgviq948-081AysJfuegcHolmes County Joel Pomerene Memorial Hospital Comment on above:Performed By: #### GUSTAVO, 51515-8, BMP, CBCA, ####[facility] ([id number])[address], [address] [place] [address] 40294KED COUNT4.12 X10E12/LNormal4.10-5.70[facility] HospitalComment on above: Performed By: #### GUSTAVO, 83614-2, BMP, CBCA, ####[facility] ([id number])[address], [address] [place] [address] 94133MAM NEUTROPHIL 82.0 %NormalProMarion Hospital HospitalComment on above:Performed By: #### GUSTAVO, 72471-5, BMP, CBCA, ####[facility] ([id number])[address] [address] [place] [address] 35324CMK (Bld) [#/Vol]30.6 10*3/uLHigh4.0-11.0 [facility] HospitalComment on above:Performed By: #### GUSTAVO, 94434-3, BMP, CBCA, ####[facility] ([id number])[address] [address]HBULA RESPIRATORY CULTUREon 32-88-7981Lpqmeype identified Respiratory culture Nom (Sput)GRAM STAIN >25 SQUAMOUS EPITHELIAL CELLS/LPF WITH MIXED BACTERIAL TYPES SEEN. REGARDED SALIVA NOT SPUTUM. CULTURE RESULTS CULTURE CANCELLED. SPECIMEN DOES NOT MEET CRITERIA FOR CULTURING. PLEASE REORDER AND RESUBMIT.NormalProMedica Braggs HospitalComment on above:Performed By: #### 624-7 ####[facility] ([id number])[address] [address] [place] [address] 91280UPSWVOGDCdf 97-49-4913Giolncctt [Mass/Vol]2.0 mg/dLNormal 1.8-2.6ProMercer County Community Hospitalca Braggs HospitalComment on above:Performed By: #### 98641-5, 24689-3 ####[facility] ([id number])[address] [address]Gbkdktjfv [Mass/Vol]1.9 mg/dLNormal1.8-2.6Pro[facility] HospitalComment on above:Performed By: #### GUSTAVO, 91394-4, BMP, CBCA, ####[facility] ([id number])[address] [address] [place] [address] 00304KQEYYKX AND INRon 12-05-6890JUL Coag (PPP) [Relative time]1.8 {INR}High 0.8-1.1Pro[facility]gs HospitalComment on above:Performed By: #### GUSTAVO, 78479- 9, BMP, CBCA, 98672-4 ####[facility] ([id number])[address], [place] [address]IL Coag (PPP) [Time]20.1 sHigh9.8-13.2 [facility]gs HospitalComment on above:Performed By: #### GUSTAVO, 86325-8, BMP, CBCA, 68403-8 ####[facility] ([id number])[address], [place] [address]DE CHEST 1 VWon 65-27-6986PX CHEST 1 VWNormalProMedica Trinity Health SystemaPTT Coag (PPP) [Time]on 00-37-4365vYMO Coag (Bld) [Time]58 sHigh 26-37Pro[facility]ica [facility]gs HospitalComment on above:Performed By: #### 60429-3, 25736-3 ####[facility] ([id number])[address], [place] [address]aNNG Coag (Bld) [Time]67 dHywf73-07AeyOdwxad [facility] Comment on above:Performed By: #### 18804-9 ####[facility] ([id number])[address], [place] [address]zTLM Coag (Bld) [Time]56 s Atcm11-30LgiOqrbuf [facility]gs HospitalComment on above:Performed By: #### PINR, 76174-5, BMP, CBCA, 84857-4 ####[facility] ([id number])[address], [place] [address]QGYDI METABOLIC PANLon 70-90-0451Zhqvd gap [Moles/Vol]9 mmol/LNormal5-15[facility] HospitalComment on above:Performed By: #### PINR, CBCA, BMP ####[facility] ([id number])[address], [place] [address]Sojdfjq [Mass/Vol]9.0 mg/dLNormal8.5-10.5 [facility] HospitalComment on above:Performed By: #### OG CHEN, BMP ####[facility] ([id number])[address] [address], [place] [address]Qrkxgoat [Moles/Vol]88 mmol/YOff59-085YlaOhpddt [facility]rell HospitalComment on above:Performed By: #### OG CHEN, BMP ####[facility] ([id number])[address] [address], [place] [address]QZ7 [Moles/Vol]35 mmol/L Yakt67-42MxvVjqxzu [facility] HospitalComment on above:Performed By: #### OG CHEN, BMP ####[facility] ([id number])[address] [address], [place] [address]Qymxrqqgii [Mass/Vol]0.55 mg/dLLow0.60-1.30[facility] HospitalComment on above:Result Comment: METHOD TRACEABLE TO IDMS STANDARD Performed By: #### OG CHEN, BMP ####[facility] ([id number])[address] [address] [place] [address]lYUE (CKD-EPI) NON-RACE DEPENDENT>90Normal>59[facility] HospitalComment on above:Result Comment: Reported eGFR is based on theCKD-EPI 2020 equation that doesnot use a race coefficient.Performed By: #### OG CHEN, BMP ####[facility] ([id number])[address] [address], [place] [address]Adwjbmk [Mass/Vol]124 mg/dL Pqtf66-87AspEkonmo [facility]rell HospitalComment on above:Performed By: #### OG CHEN, BMP ####[facility] ([id number])[address] [address] [place] [address] 17506Izxsdqdsx [Moles/Vol]3.6 mmol/LNormal3.5-5.0[facility] HospitalComment on above:Performed By: #### OG CHNE, BMP ####[facility] ([id number])[address], [address] [place] [address] 66261Cgqfzo [Moles/Vol]132 mmol/SIrr641-751HhtCotfen [place] HospitalComment on above: Performed By: #### OG CHEN, BMP ####[facility] ([id number])[address], [address] [place] [address] 94618Mroi nitrogen [Mass/Vol]25 mg/dLNormal5-27[facility] HospitalComment on above:Performed By: #### OG CHEN, BMP ####[facility] ([id number])[address], [address] [place] [address] 09872XWZ AND AUTO DIFFon 27-23-1365Pdas form neutrophils/100 WBC (Bld)1.0 %NormalProMarion Hospital HospitalComment on above:Performed By: #### OG CHEN, BMP ####[facility] ([id number])[address] [address] [place] [address] 57797Exsxqundswz distribution width (RBC) [Ratio] 17.0 %High11.5-15.0[facility] HospitalComment on above:Performed By: #### GUSTAVO CBCA, BMP ####[facility] ([id number])[address], [address] [place] [address] 17364Aceytjnipy (Bld) [Volume fraction]38.9 %Uti08-56 [facility] HospitalComment on above:Performed By: #### GUSTAVO CBCA, BMP ####[facility] ([id number])[address] [address] [place] [address] 35138Iqjldzwkoy (Bld) [Mass/Vol]12.8 g/dLLow13.0-17.0[facility] Comment on above:Performed By: #### PINR, CBCA, BMP ####[facility] ([id number])[address], [place] [address]Tztyzszfjot (Bld) [#/Vol]3.7 10*3/uLHigh1.0-3.5[facility] HospitalComment on above:Performed By: #### PINR, CBCA, BMP ####[facility] ([id number])[address], [address], [place] [address]Imloidflruc/100 WBC (Bld)12.0 %Normal [facility] HospitalComment on above:Performed By: #### PINR, CBCA, BMP ####[facility] ([id number])[address], [address] [place] [address] 33023ETZ (RBC) [Entitic mass]29.9 fcJuzxyz07-63ByiGqjhfs [place] HospitalComment on above:Performed By: #### PINR, CBCA, BMP ####[facility] ([id number])[address], [address], [place] [address]KRNW (RBC) [Mass/Vol]32.9 g/nAJmwdpn69-18JksOetplc [place] HospitalComment on above:Performed By: #### PINR, CBCA, BMP ####[facility] ([id number])[address], [address], [place] [address]VSP (RBC) [Entitic vol]91 aOGnewkv86-497KdfEqsvcu [place] HospitalComment on above:Performed By: #### PINR, CBCA, BMP ####[facility] ([id number])[address], [address] [address] Metamyelocytes/100 WBC (Bld)1.0 %NormalProMedica Terrell HospitalComment on above:Performed By: #### PINJessica CBCA, BMP ####[facility] ([id number])[address], [address] [place] [address] 23815Yebzbjave (Bld) [#/Vol]4.0 10*3/uLHigh0-0.9ProMedica Terrell HospitalComment on above:Performed By: #### PINJessica, CBCA, BMP ####[facility] ([id number])[address], [address], [place] [address]Eselfpyjt/100 WBC (Bld)13.0 %NormalProMedica Terrell HospitalComment on above:Performed By: #### PINJessica CBCA, BMP ####[facility] ([id number])[address], [address] [place] [address] 46241Rzazjzpmvra (Bld) [#/Vol]22.9 10*3/uLHigh1.5-6.6ProMedica Terrell HospitalComment on above: Performed By: #### PINJessica CBCA, BMP ####[facility] ([id number])[address], [address] [place] [address] 80092Eriwxqjl mean volume (Bld) [Entitic vol]8.9 fLNormal7-12ProMedica Terrell HospitalComment on above:Performed By: #### PINR, CBCA, BMP ####[facility] ([id number])[address], [address] [place] [address] 55917Gzwsxdwgx (Bld) [#/Vol]415 10*3/uLNormal 150-450ProMedica Terrell HospitalComment on above:Performed By: #### PINR, CBCA, BMP ####[facility] ([id number])[address], [address] [place] [address] 02290PCO COUNT4.28 X10E12/LNormal4.10-5.70ProMedica Terrell HospitalComment on above:Performed By: #### PINJessica CBCA, BMP ####[facility] ([id number])[address], [address] [place] [address] 78718GNYGYFYH6+ AbnormalNONEProMedica Braggs HospitalComment on above:Performed By: #### GUSTAVO CBCA, BMP ####[facility] ([id number])[address], [address] [place] [address] 03372PHC YIHACWZRWD52.0 %NormalProMedica Braggs HospitalComment on above:Performed By: #### BRIDGET CHENA, BMP ####[facility] ([id number])[address], [address] [place] [address] 21580CYE (Bld) [#/Vol]30.9 10*3/uLHigh4.0-11.0ProMercer County Community Hospitalca Braggs HospitalComment on above:Performed By: #### OG CHEN, BMP ####[facility] ([id number])[address], [address] [place] [address] 51607UELDPQDXJjv 94-87-2400Pbrjlpnwr [Moles/Vol]4.0 mmol/L Normal3.5-5.0ProMercer County Community Hospitalca Braggs HospitalComment on above:Performed By: #### 2823-3 ####[facility] ([id number])[address], [address] [place] [address] 72354TKWZPFK AND INRon 43-71-4448FFO Coag (PPP) [Relative time]2.0 {INR}High 0.8-1.1Pro[facility]Reg[facility] [place] HospitalComment on above:Performed By: #### GUSTAVO CBCA, BMP ####[facility] ([id number])[address], [address] [place] [address] 43544JC Coag (PPP) [Time]22.4 sHigh9.8-13.2ProMedica Braggs HospitalComment on above:Performed By: #### OG CHEN, BMP ####[facility] ([id number])[address], [address], [place] [address]AHGBD METABOLIC PANLon 90-71-3127Dkwjm gap [Moles/Vol]10 mmol/LNormal5-15ProMedica Terrell HospitalComment on above:Performed By: #### OG, BMP ####[facility] ([id number])[address], [address] [place] [address] 00754Vmpbfhy [Mass/Vol]9.6 mg/dLNormal8.5-10.5ProMedica Braggs HospitalComment on above: Performed By: #### OG, BMP ####[facility] ([id number])[address], [address], [place] [address]Robdakmy [Moles/Vol]85 mmol/BEpc00-433 [facility]ica [facility]aggs HospitalComment on above:Performed By: #### OG, BMP ####[facility] ([id number])[address], [address], [place] [address]BE9 [Moles/Vol]38 mmol/FWeed14-48WdhMsfsgd [place] HospitalComment on above:Performed By: #### OG, BMP ####[facility] ([id number])[address] [address] [place] [address] 77938Owxdnbbjyf [Mass/Vol]0.57 mg/dLLow0.60-1.30ProMedica Terrell HospitalComment on above:Result Comment: METHOD TRACEABLE TO IDMS STANDARDPerformed By: #### OG, BMP ####[facility] ([id number])[address] [address] [facility], [place] [address]sRRO (CKD-EPI) NON-RACE DEPENDENT>90Normal>59ProMedica Terrell HospitalComment on above:Result Comment: Reported eGFR is based on theCKD-EPI 2020 equation that doesnot use a race coefficient.Performed By: #### OG BMP ####[facility] ([id number])[address], [address], [place] [address]Xjaswlf [Mass/Vol]98 mg/oGQpdfge35-33WgpNxjrxx Terrell HospitalComment on above:Performed By: #### OG BMP ####[facility] ([id number])[address], [address], [place] [address]Ahxpeaxrp [Moles/Vol]3.6 mmol/LNormal3.5-5.0ProMedica Terrell HospitalComment on above:Performed By: #### OG BMP ####[facility] ([id number])[address], [address], [place] [address]Kkjwnk [Moles/Vol]133 mmol/GMiu141-484MniWbtyqp Terrell HospitalComment on above: Performed By: #### OG, BMP ####[facility] ([id number])[address], [address], [place] [address]Xjat nitrogen [Mass/Vol]30 mg/dLHigh5-27 [facility]aggs HospitalComment on above:Performed By: #### OG, BMP ####[facility] ([id number])[address], [address] [place] [address]JFEGC CULTUREon 67-88-5333Fzgsuzob identified Aer cx Nom (Bld)CULTURE RESULTS NO GROWTH 5 DAYSNormalProMedica Terrell HospitalCBC AND AUTO DIFFon 07-07-2023 ABSOLUTE BASOPHIL0.0 X10E9/LNormal0.0-0.2Pro[facility]ica [facility]rell HospitalComment on above:Performed By: #### OG, BMP ####[facility] ([id number])[address], [address], [place] [address]BBPAFWWO XYPORRHJLK42.6 X10E9/LHigh1.5-6.6Pro[facility]ica [facility]rell HospitalComment on above:Performed By: #### OG, BMP ####[facility] ([id number])[address], [address], [place] [address]Icelnwgin/100 WBC (Bld)0.1 %[facility] Comment on above:Performed By: #### CBCA, BMP ####[facility] ([id number])[address], [address], [place] [address]Yqsghgwngiy (Bld) [#/Vol] 0.0 10*3/uLNormal0.0-0.4ProMarion Hospital HospitalComment on above:Performed By: #### CBCA, BMP ####[facility] ([id number])[address] [address], [place] [address]Kbwrbsbgqjg/100 WBC (Bld)0.1 %NormalProMarion Hospital HospitalComment on above:Performed By: #### CBCA, BMP ####[facility] ([id number])[address] [address], [place] [address]Qjxuedxpfes distribution width (RBC) [Ratio]17.5 %High11.5-15.0[facility] Comment on above:Performed By: #### CBCA, BMP ####[facility] ([id number])[address] [address] [place] [address] 70036Wcmfgijmml (Bld) [Volume fraction]38.1 %Plq37-39DobXqwcec [place] HospitalComment on above:Performed By: #### CBCA, BMP ####[facility] ([id number])[address], [address] [place] [address], [place] [address]Xzdwjesefh (Bld) [Mass/Vol]12.5 g/dLLow13.0-17.0 [facility] HospitalComment on above:Performed By: #### CBCA, BMP ####[facility] ([id number])[address], [address], [place] [address]Bbdnvcykhux (Bld) [#/Vol]3.1 10*3/uLNormal1.0-3.5PTerrebonne General Medical Centerica [facility] Comment on above:Performed By: #### CBCA, BMP ####[facility] ([id number])[address], [address] [place], [place] [address]Bgdkzygsrwx/100 WBC (Bld) 11.6 %NormalProMedica Braggs HospitalComment on above:Performed By: #### CBCA, BMP ####[facility] ([id number])[address], [address], [place] [address]UNS (RBC) [Entitic mass]29.7 unFnbtqu35-08MqhYaqgxf Braggs HospitalComment on above:Performed By: #### CBCA, BMP ####[facility] ([id number])[address], [address], [place] [address]EFTZ (RBC) [Mass/Vol]32.7 g/oSRabnyg02-90MntSjjrzw Br[facility]gs HospitalComment on above: Performed By: #### CBCA, BMP ####[facility] ([id number])[address], [address], [place] [address]FLD (RBC) [Entitic vol]91 zHZloalj03-333 [facility] HospitalComment on above:Performed By: #### CBCA, BMP ####[facility] ([id number])[address], [address], [place] [address]Xseyipgkr (Bld) [#/Vol]4.3 10*3/uLHigh0-0.9ProMedica [facility] HospitalComment on above:Performed By: #### CBCA, BMP ####[facility] ([id number])[address], [address], [place] [address]Mzvdrblsq/100 WBC (Bld)15.9 %NormalProMedica Terrell HospitalComment on above:Performed By: #### CBCA, BMP ####[facility] ([id number])[address], [address] [place] [address] 067[address]Imrymtzwicr/100 WBC (Bld)72.3 %NormalProMedica Terrell HospitalComment on above:Performed By: #### CBCA, BMP ####[facility] ([id number])[address], [address] [place] [address] 24784Aglqcpgz mean volume (Bld) [Entitic vol]9.1 fLNormal7-12Pro[facility]ica [facility] HospitalComment on above:Performed By: #### CBCA, BMP ####[facility] ([id number])[address], [address] [place] [address]35[address]Naaknpuhm (Bld) [#/Vol]396 10*3/oEQbfdlm717-701 [facility] HospitalComment on above:Performed By: #### CBCA, BMP ####[facility] ([id number])[address], [address] [place] [address] 28368SMX COUNT4.20 X10E12/LNormal4.10-5.70[facility] HospitalComment on above:Performed By: #### CBCA, BMP ####[facility] ([id number])[address], [address] [place] [address] 968[address]LQU (Bld) [#/Vol]27.1 10*3/uLHigh4.0-11.0Pro[facility]ica [facility] HospitalComment on above:Performed By: #### CBCA, BMP ####[facility] ([id number])[address], [address] [place] [address] 44702CJX [Mass/Vol]on 4C REACTIVE POJAABC29.5 mg/dLHigh 0.000-0.744ProMedica Terrell HospitalComment on above:Performed By: #### 1987-5, 3084-1, 76562-3, 48131-1, 02386-9, 03925-9 ####[facility] ([id number])[address], [address] [place] [address] 15793WDQ Photometric method (Bld) [Velocity]on 64-41-9123OWW, ERYTHROCYTE SEDIMENTATION HCVJ986 mm/hHigh0-20 [facility] SystemComment on above:Performed By: #### 1987-5, 3084-1, 98569-3, 84315-5, 39783-8, 68494-2 ####[facility] ([id number])[address], [address] [place] [address] 64991Fiulxy D-dimer DDU (PPP) [Mass/Vol]on 07-07-2023 BPNAL773 ng/mL DDUHigh<255ProL[facility] Comment on above:Result Comment: Results >=255ng/mL DDU: Results may beindicative of the presence of VTE. The useof the Wells score and further diagnostictests should be considered. Elevated D-Dimerlevels can alsobe associated with DIC,neoplasm, , trauma and liver disease.Elevated levels of rheumatoid factor may leadto an overestimation of the D-Dimer level. Performed By: #### 1987-5, 3084-1, 36767-5, 07507-1, 24252-0, 27627-4 ####[facility] ([id number])[address], [address] [place] [address] HEMOGLOBINon 41-18-3785Hwmidyivmc (Bld) [Mass/Vol]12.6 g/dLLow13.0-17.0ProLicking Memorial HospitalComment on above:Performed By: #### 718-7, PLTCT, PINR, 66295-4 ####[facility] ([id number])[address], [address] [place] [address] 81504UWUU PCR NASALon 96-31-9502ZRNM DNA DENIS+probe Ql (Unsp spec)NegativeNormal NEGProMedica Terrell HospitalComment on above:Performed By: #### 20497-5 ####[facility] ([id number])[address], [address], [place] [address]LXIWDMCR COUNT AND MPVon 77-08-4823Skozzvfv mean volume (Bld) [Entitic vol]8.8 fLNormal7-12Pro[facility] HospitalComment on above:Performed By: #### 718-7, PLTCT, PINR, 80151-0 ####[facility] ([id number])[address], [address], [place] [address]Icezeublj (Bld) [#/Vol]405 10*3/uLNormal 150-450ProMedica [facility] HospitalComment on above:Performed By: #### 718-7, PLTCT, PINR, 99352-1 ####[facility] ([id number])[address], [place] [address]IRBMICLPYpr 22-27-9718Gdudutluz [Moles/Vol]3.9 mmol/LNormal3.5-5.0Pro[facility]ica [facility] HospitalComment on above:Performed By: #### 2823-3 ####[facility] ([id number])[address], [address], [place] [address]XURRLBH AND INRon 65-73-6937TZY Coag (PPP) [Relative time]2.0 {INR}High0.8-1.1Pro[facility] HospitalComment on above:Performed By: #### 718-7, PLTCT, PINR, 30779-8 ####[facility] ([id number])[address], [address], [place] [address]WD Coag (PPP) [Time]22.8 sHigh9.8-13.2 [facility] HospitalComment on above:Performed By: #### 718-7, PLTCT, PINR, 87227-8 ####[facility] ([id number])[address] [address], [place] [address]Eidifjxpunldt IA [Mass/Vol]on 96-29-7622GDHTRNKFBNHRJ7.31 ng/mLHigh<0.05[facility] HospitalComment on above:Result Comment: NOTE<0.50 ng/mL - Low risk of severe sepsis and/or septic shock.<2.00 ng/mL - Recommend retesting within 6-24 hours.>2.00 ng/mL - High risk of sepsis and/or septic shock.Performed By: #### 1988-5, 3084-1, 79475-4, 05117-5, 66876-8, 85469-1 ####[facility] ([id number])[address] [address]VZHP ACIDon 63-27-8982Lslck [Mass/Vol]3.8 mg/dLNormal2.6-7.2 [facility] HospitalComment on above:Performed By: #### 1988-5, 3084-1, 02173-7, 14093-1, 56996-8, 62571-6 ####[facility] ([id number])[address] [address]PWBPU CULTUREon 07-07-2023 Bacteria identified Cx Nom (U)SPECIMEN NOTES URINE RECEIVED WITHOUT PRESERVATIVE CULTURE RESULTS 50-100,000 ORGANISMS/ML NORMAL UROGENITAL FLORANormalHolmes County [facility] Hospital Comment on above:Performed By: #### 630-4 ####[facility] ([id number])[address] [address]aHNQ Coag (PPP) [Time]on 04-60-2435dPYC Coag (Bld) [Time]69 sPvya81-92RtsHzizefHolmes County Joel Pomerene Memorial HospitalComment on above:Performed By: #### 96969-5 ####[facility] ([id number])[address] [address], [place] [address]zUBB Coag (Bld) [Time]73 s Dear81-92IibUpdfhh [facility]rell HospitalComment on above:Performed By: #### 1986-5, 3084-1, 64114-4, 40805-1, 62894-8, 05715-0 ####[facility] ([id number])[address], [place] [address]tENS Coag (Bld) [Time]36 s Ydmgsk26-69TcwLfuqpy Terrell HospitalComment on above:Performed By: #### 718-7, PLTCT, PINR, 38275-5 ####[facility] ([id number])[address] [address], [place] [address]TRGTM METABOLIC PANLon 88-76-5223Ubbme gap [Moles/Vol]8 mmol/LNormal5-15[facility] HospitalComment on above:Performed By: #### CBCA, BMP ####[facility] ([id number])[address] [address] [place] [address], [place] [address]Ehactvp [Mass/Vol]9.9 mg/dLNormal8.5-10.5Pro[facility] HospitalComment on above:Performed By: #### CBCA, BMP ####[facility] ([id number])[address], [place] [address]Fxnzbuyv [Moles/Vol]88 mmol/LVrt66-725KcvZtocxu [facility]rell HospitalComment on above:Performed By: #### CBCA, BMP ####[facility] ([id number])[address], [place] [address]YZ1 [Moles/Vol]41 mmol/XBvev08-33PblFvoypy [facility] HospitalComment on above:Performed By: #### CBCA, BMP ####[facility] ([id number])[address] [address] [place] [address]26[address]Pgapnxcqkr [Mass/Vol]0.66 mg/dLNormal0.60-1.30Pro[facility] HospitalComment on above: Result Comment: METHOD TRACEABLE TO IDMS STANDARDPerformed By: #### OG BMP ####[facility] ([id number])[address] [address], [place] [address]sQOZ (CKD-EPI) NON-RACE DEPENDENT>90Normal>59Pro[facility] Comment on above:Result Comment: Reported eGFR is based on theCKD-EPI 2020 equation that doesnot use a race coefficient.Performed By: #### OG BMP ####[facility] ([id number])[address] [address]Ejpitoi [Mass/Vol]103 mg/mIPggk50-55OwuVyxqtj [place] HospitalComment on above:Performed By: #### OG, BMP ####[facility] ([id number])[address] [address] [place] [address]Mstxkvzik [Moles/Vol]3.8 mmol/LNormal3.5-5.0Pro[facility] HospitalComment on above:Performed By: #### OG, BMP ####[facility] ([id number])[address] [address], [place] [address]Rcgrpg [Moles/Vol]137 mmol/HCbrslm588-155EsoWyntae [place] HospitalComment on above:Performed By: #### OG, BMP ####[facility] ([id number])[address] [address] [place] [address]Afnw nitrogen [Mass/Vol]37 mg/dLHigh5-27Pro[facility] HospitalComment on above:Performed By: #### OG, BMP ####[facility] ([id number])[address] [address] [place] [address], [place] [address]UQT AND AUTO DIFFon 84-71-4376Gctfpziwaon distribution width (RBC) [Ratio]16.9 %High11.5-15.0[facility] HospitalComment on above: Performed By: #### CBCA, BMP ####[facility] ([id number])[address], [place] [address]Fquxcxphno (Bld) [Volume fraction]37.9 %Low 39-49Pro[facility] HospitalComment on above:Performed By: #### CBCA, BMP ####[facility] ([id number])[address], [address], [place] [address]Tylyxcjcqv (Bld) [Mass/Vol]12.6 g/dLLow13.0-17.0[facility] Comment on above:Performed By: #### CBCA, BMP ####[facility] ([id number])[address], [address], [place] [address]RDBKTJTEAQ, ATYPICAL3.0 % NormalAccess Hospital Dayton HospitalComment on above:Performed By: #### CBCA, BMP ####[facility] ([id number])[address], [place] [address]Pvmaxqcinkn (Bld) [#/Vol]2.7 10*3/uLNormal1.0-3.5PHolmes County [facility] Hospital Comment on above:Performed By: #### CBCA, BMP ####[facility] ([id number])[address] [place], [place] [address]Fduhpydljsc/100 WBC (Bld) 6.0 %NormalAccess Hospital Dayton HospitalComment on above:Performed By: #### CBCA, BMP ####[facility] ([id number])[address] [place], [place] [address]FCB (RBC) [Entitic mass]30.0 pzCtrqsi55-42YkeXcnifx [facility] HospitalComment on above:Performed By: #### CBCA, BMP ####[facility] ([id number])[address] [place] [address]MPQA (RBC) [Mass/Vol]33.2 g/eTXzmwgo99-00YauUqntsy [facility] HospitalComment on above: Performed By: #### CBCA, BMP ####[facility] ([id number])[address] [place] [address] 28[address]QUY (RBC) [Entitic vol]91 xRFmczug20-556 [facility] HospitalComment on above:Performed By: #### CBCA, BMP ####[facility] ([id number])[address] [place] [address] 53391Gtxioutys (Bld) [#/Vol]4.5 10*3/uLHigh0-0.9Pro[facility] Hospitalca Terrell HospitalComment on above:Performed By: #### CBCA, BMP ####[facility] ([id number])[address], [address] [place] [address] 87109Nujtpjmva/100 WBC (Bld)15.0 %NormalProMercer County Community Hospitalca Braggs HospitalComment on above:Performed By: #### CBCA, BMP ####[facility] ([id number])[address], [address] [place] [address] 35885Riehrydltiu (Bld) [#/Vol]22.7 10*3/uLHigh1.5-6.6Pro[facility] Comment on above:Performed By: #### CBCA, BMP ####[facility] ([id number])[address], [address] [place] [address] 91754Bkrkyksh mean volume (Bld) [Entitic vol]8.8 fLNormal7-12[facility] HospitalComment on above:Performed By: #### CBCA, BMP ####[facility] ([id number])[address], [address], [place] [address]Xhcymgjjr (Bld) [#/Vol]401 10*3/mCHzzcfz088-545 [facility] HospitalComment on above:Performed By: #### CBCA, BMP ####[facility] ([id number])[address], [address] [place] [address] 57035VGI COUNT4.19 X10E12/LNormal4.10-5.70[facility] HospitalComment on above:Performed By: #### CBCA, BMP ####[facility] ([id number])[address], [address] [place] [address] 58181LEI morphology finding Nom (Bld)NORMALNormalProMedica Terrell HospitalComment on above:Performed By: #### CBCA, BMP ####[facility] ([id number])[address], [address] [place] [address] 11501KKY XOLUCNACUL06.0 %NormalProMedica Terrell HospitalComment on above:Performed By: #### CBCA, BMP ####[facility] ([id number])[address], [address] [place] [address] 70363VTI (Bld) [#/Vol]29.9 10*3/uLHigh4.0-11.0[facility] HospitalComment on above:Performed By: #### CBCA, BMP ####[facility] ([id number])[address], [address], [place] [address]RQ ABDOMEN AND PELVIS W CONTon 48-56-4983MQ ABDOMEN AND PELVIS W CONTNormalProMedica Terrell HospitalCT CARDIAC MORPHOLOGYon 87-02-1748BY CARDIAC MORPHOLOGYNormalProMedica Terrell HospitalPOTASSIUMon 07-06-2023 Potassium [Moles/Vol]3.6 mmol/LNormal3.5-5.0[facility]rell HospitalComment on above:Performed By: #### 2823-3 ####[facility] ([id number])[address], [address] [place] [address]CRJQX METABOLIC PANLon 81-36-1949Uzxtu gap [Moles/Vol]14 mmol/LNormal5-15[facility] Comment on above:Performed By: #### OG, BMP ####[facility] ([id number])[address], [address], [place] [address]Dujozmh [Mass/Vol]10.4 mg/dLNormal8.5-10.5PPomerene Hospital HospitalComment on above:Performed By: #### OG, BMP ####[facility] ([id number])[address] [address] [place] [address], [place] [address]Grvtozau [Moles/Vol]87 mmol/PPyl60-668WufVgiwec [place] HospitalComment on above:Performed By: #### OG, BMP ####[facility] ([id number])[address] [address], [place] [address]KC6 [Moles/Vol] 35 mmol/XUvap81-09AqsMztebr [place] HospitalComment on above:Performed By: #### OG, BMP ####[facility] [facility] ([id number])[address] [address] [place] [address] 06908Wzktjnybpn [Mass/Vol]0.75 mg/dLNormal0.60-1.30[facility] HospitalComment on above:Result Comment: METHOD TRACEABLE TO IDMS STANDARDPerformed By: #### OG, BMP ####[facility] ([id number])[address] [address], [place] [address]uAQU (CKD-EPI) NON-RACE DEPENDENT>90Normal>59Pro[facility] HospitalComment on above:Result Comment: Reported eGFR is based on theCKD-EPI 2020 equation that doesnot use a race coefficient.Performed By: #### OG, BMP ####[facility] ([id number])[address], [address], [place] [address]Rbekxlv [Mass/Vol]142 mg/dL Mhaf71-17GfzUldabf [place] HospitalComment on above:Performed By: #### CBCTrang, BMP ####[facility] ([id number])[address], [address] [place] [address] 47528Lfsivabdu [Moles/Vol]3.7 mmol/LNormal3.5-5.0[facility] Comment on above:Performed By: #### CBCTrang, BMP ####[facility] ([id number])[address] [address] [place] [address] 46590Fxejfn [Moles/Vol]136 mmol/BKxwdmh338-617AvuKcwqws [place] HospitalComment on above:Performed By: #### CBCTrang, BMP ####[facility] ([id number])[address], [address] [place] [address] 24223Csiu nitrogen [Mass/Vol]37 mg/dLHigh5-27ProLicking Memorial HospitalComment on above:Performed By: #### CBCTrang, BMP ####[facility] ([id number])[address], [address] [place] [address] 58687WWT AND AUTO DIFFon 63-26-7619Yhrz form neutrophils/100 WBC (Bld)4.0 %NormalProLicking Memorial HospitalComment on above:Performed By: #### CBCTrang, BMP ####[facility] ([id number])[address], [address], [place] [address]Lwqzyoxhgdx distribution width (RBC) [Ratio]17.0 %High11.5-15.0[facility] Comment on above:Performed By: #### CBCA, BMP ####[facility] ([id number])[address], [address] [place] [address], [place] [address]Gwdxxqfgur (Bld) [Volume fraction]40.3 %Cyijyz19-58ZzlNhobph Braggs HospitalComment on above:Performed By: #### CBCA, BMP ####[facility] ([id number])[address], [address], [place] [address]Invxbmtwnp (Bld) [Mass/Vol]13.4 g/pVWrnjtg67.0-17.0 ProMWadsworth[facility]ittman [facility] HospitalComment on above:Performed By: #### CBCA, BMP ####[facility] ([id number])[address], [address], [place] [address]Xvbuhkglgyj (Bld) [#/Vol]3.1 10*3/uLNormal1.0-3.5PPomerene Hospital Hospital Comment on above:Performed By: #### CBCA, BMP ####[facility] ([id number])[address], [address], [place] [address]Xsfjmcgrprk/100 WBC (Bld) 10.0 %NormalProMarion Hospital HospitalComment on above:Performed By: #### CBCA, BMP ####[facility] ([id number])[address], [address], [place] [address]ODN (RBC) [Entitic mass]30.1 kyAixwuc40-47CufIxltvq [place] HospitalComment on above:Performed By: #### CBCA, BMP ####[facility] ([id number])[address], [address], [place] [address]UIQM (RBC) [Mass/Vol]33.2 g/mDFpctzl06-07QzxAxtxjd [place] HospitalComment on above: Performed By: #### CBCA, BMP ####[facility] ([id number])[address], [address], [place] [address]NSC (RBC) [Entitic vol]91 rZMhwism55-052 ProMWadsworth-Rittman Hospital HospitalComment on above:Performed By: #### CBCA, BMP ####[facility] ([id number])[address], [address] [place] [address] 89151Ajhuxbege (Bld) [#/Vol]3.4 10*3/uLHigh0-0.9[facility] HospitalComment on above:Performed By: #### CBCTrang, BMP ####[facility] ([id number])[address], [address] [place] [address] 55163Tnoslbgfg/100 WBC (Bld)11.0 %NormalProMedica Braggs HospitalComment on above:Performed By: #### CBCTrang, BMP ####[facility] ([id number])[address], [address] [place] [address] 57105Lgzhqluxgop (Bld) [#/Vol]24.2 10*3/uLHigh1.5-6.6[facility] Comment on above:Performed By: #### CBCA, BMP ####[facility] ([id number])[address], [address] [place] [address] 40531Lwojrfif mean volume (Bld) [Entitic vol]8.5 fLNormal7-12[facility] HospitalComment on above:Performed By: #### CBCA, BMP ####[facility] ([id number])[address], [address] [place] [address] 41145Vfjahqoqe (Bld) [#/Vol]420 10*3/jBMsvdcw819-678 [facility] HospitalComment on above:Performed By: #### CBCA, BMP ####[facility] ([id number])[address], [address] [place] [address] 716[address]FAA COUNT4.45 X10E12/LNormal4.10-5.70[facility] HospitalComment on above:Performed By: #### CBCA, BMP ####[facility] ([id number])[address], [address] [place] [address] 54106AUU morphology finding Nom (Bld)NORMALNormalProMedica Terrell HospitalComment on above:Performed By: #### CBCTrang, BMP ####[facility] ([id number])[address], [address] [place] [address] 846[address]FRE ROZHYPFKAM47.0 %NormalProMedica Terrell HospitalComment on above:Performed By: #### CBCA, BMP ####[facility] ([id number])[address], [address] [place] [address] 67185IGY (Bld) [#/Vol]30.7 10*3/uLHigh4.0-11.0[facility] HospitalComment on above:Performed By: #### CBCA, BMP ####[facility] ([id number])[address], [address] [place] [address] 02009QX CHEST WO CONTon 16-87-3644XD CHEST WO CONTNormalProMedica Terrell HospitalPOTASSIUMon 33-70-0721Zmjjlukik [Moles/Vol]4.1 mmol/LNormal 3.5-5.0[facility] HospitalComment on above:Performed By: #### 2823-3 ####[facility] ([id number])[address] [address] [place] [address] 83164XFKNQ METABOLIC PANLon 78-67-8508Gfxvs gap [Moles/Vol]10 mmol/LNormal5-15 [facility] HospitalComment on above:Performed By: #### CBCA, BMP ####[facility] ([id number])[address] [address] [place] [address] 95184Ppgjxdu [Mass/Vol]10.0 mg/dLNormal8.5-10.5[facility] HospitalComment on above:Performed By: #### CBCA, BMP ####[facility] ([id number])[address] [address], [place] [address]Hjowqwvc [Moles/Vol]85 mmol/DKzg30-770FyhPghjvf [place] HospitalComment on above:Performed By: #### OG BMP ####[facility] ([id number])[address] [address] [place] [address] 20761LL5 [Moles/Vol]40 mmol/ZLpkl23-23YihMtwxxy [facility] Comment on above:Performed By: #### OG, BMP ####[facility] ([id number])[address] [address] [place] [address] 44466Czpqqkaxoh [Mass/Vol]0.62 mg/dLNormal0.60-1.30ProLicking Memorial HospitalComment on above:Result Comment: METHOD TRACEABLE TO IDMS STANDARDPerformed By: #### OG BMP ####[facility] ([id number])[address] [address] [place] [address] 14221gLFC (CKD-EPI) NON-RACE DEPENDENT>90Normal>59ProLicking Memorial HospitalComment on above:Result Comment: Reported eGFR is based on theCKD-EPI 2020 equation that doesnot use a race coefficient.Performed By: #### OG, BMP ####[facility] ([id number])[address] [address] [place] [address] 78442Dstkgow [Mass/Vol]126 mg/nSYgyp28-56RntGuhcfz [place] HospitalComment on above:Performed By: #### OG, BMP ####[facility] ([id number])[address] [address] [place] [address] 78716Qipaiuzpa [Moles/Vol]3.7 mmol/LNormal3.5-5.0[facility] HospitalComment on above:Performed By: #### OG, BMP ####[facility] ([id number])[address], [address] [place] [address] 19296Xrhbdg [Moles/Vol]135 mmol/MDucoqo007-727IbhDymgse [facility]aggs HospitalComment on above: Performed By: #### CBCTrang, BMP ####[facility] ([id number])[address], [address], [place] [address]Uikt nitrogen [Mass/Vol]33 mg/dLHigh5-27 ProMWadsworth-[facility]itt[facility] Hospital HospitalComment on above:Performed By: #### CBCTrang, BMP ####[facility] ([id number])[address], [address], [place] [address]DME AND AUTO DIFFon 11-06-7706Lfsp form neutrophils/100 WBC (Bld)3.0 % NormalProMarion Hospital HospitalComment on above:Performed By: #### CBCTrang, BMP ####[facility] ([id number])[address], [address] [place] [address] 42909Gaerzcvfchj (Bld) [#/Vol]0.3 10*3/uLNormal0.0-0.4[facility] Comment on above:Performed By: #### CBCTrang, BMP ####[facility] ([id number])[address], [address], [place] [address]Sshzzcuuzts/100 WBC (Bld) 1.0 %NormalProMercer County Community Hospitalca [facility]aggs HospitalComment on above:Performed By: #### CBCTrang, BMP ####[facility] ([id number])[address], [address], [place] [address]Wzmfdglnroa distribution width (RBC) [Ratio]17.3 %High11.5-15.0 [facility] HospitalComment on above:Performed By: #### CBCA, BMP ####[facility] ([id number])[address], [address], [place] [address]Jgjnpwzvkl (Bld) [Volume fraction]41.6 %Rdgeym88-06GinSlmrps [facility]rell HospitalComment on above:Performed By: #### CBCA, BMP ####[facility] ([id number])[address], [address] [place] [address] 31030Irnrkdnmbb (Bld) [Mass/Vol]13.8 g/qUPphchc73.0-17.0[facility] HospitalComment on above: Performed By: #### CBCA, BMP ####[facility] ([id number])[address], [address] [place] [address] 82171Eucibplbfau (Bld) [#/Vol]3.8 10*3/uLHigh 1.0-3.5[facility] HospitalComment on above:Performed By: #### CBCA, BMP ####[facility] ([id number])[address], [address] [place] [address] 90388Akunvyflvgw/100 WBC (Bld)13.0 %NormalProMedica Terrell HospitalComment on above:Performed By: #### CBCA, BMP ####[facility] ([id number])[address], [address] [place] [address] 67309DXD (RBC) [Entitic mass] 30.1 ipSbhhtg63-41JeuLaggve [facility] HospitalComment on above:Performed By: #### CBCA, BMP ####[facility] ([id number])[address], [address] [place] [address] 04973DKFA (RBC) [Mass/Vol]33.1 g/rQKdjovh36-41DcfXdpncy [facility] HospitalComment on above:Performed By: #### CBCA, BMP ####[facility] ([id number])[address], [address] [place] [address] 72150UDA (RBC) [Entitic vol]91 yFYlgpjs25-077LgcRwpmrm [facility] HospitalComment on above: Performed By: #### CBCA, BMP ####[facility] ([id number])[address], [address], [place] [address]Lmlgrpraa (Bld) [#/Vol]2.1 10*3/uLHigh0-0.9 ProMencompass health rehabilitation hospital of shelby countya Braggs HospitalComment on above:Performed By: #### CBCA, BMP ####[facility] ([id number])[address], [address], [place] [address]Fifpjmthx/100 WBC (Bld)7.0 %NormalProMercer County Community Hospitalca [facility]aggs HospitalComment on above:Performed By: #### CBCA, BMP ####[facility] ([id number])[address], [address], [place] [address]MWPWMVXNO7.0 %Normal [facility] HospitalComment on above:Performed By: #### CBCA, BMP ####[facility] ([id number])[address], [address] [place] [address] 93957Speuejgmgmz (Bld) [#/Vol]22.9 10*3/uLHigh1.5-6.6ProMercer County Community Hospitalca [facility] Comment on above:Performed By: #### CBCA, BMP ####[facility] ([id number])[address], [address], [place] [address]Cwjbgtwm mean volume (Bld) [Entitic vol]8.4 fLNormal7-12Pro[facility] HospitalComment on above:Performed By: #### CBCA, BMP ####[facility] ([id number])[address], [address], [place] [address]Nfscuqzku (Bld) [#/Vol]426 10*3/xHFphzvw147-674 [facility] HospitalComment on above:Performed By: #### CBCA, BMP ####[facility] ([id number])[address], [address], [place] [address]BVW COUNT4.57 X10E12/LNormal4.10-5.70[facility] HospitalComment on above:Performed By: #### OG, BMP ####[facility] ([id number])[address], [address] [place] [address] 53663YSQ morphology finding Nom (Bld)NORMALNormalProMedica Terrell HospitalComment on above:Performed By: #### CBCTrang, BMP ####[facility] ([id number])[address], [address] [place] [address] 10226UBM SUZVZSRVJC93.0 %NormalProMedica Terrell HospitalComment on above:Performed By: #### OG, BMP ####[facility] ([id number])[address], [address] [place] [address] 96295STO (Bld) [#/Vol]29.4 10*3/uLHigh4.0-11.0[facility] HospitalComment on above:Performed By: #### CBCTrang, BMP ####[facility] ([id number])[address], [address] [place] [address] 04493HQGFN METABOLIC PANLon 10-85-6470Wxkhn gap [Moles/Vol]8 mmol/LNormal5-15[facility] HospitalComment on above:Performed By: #### OG, BMP ####[facility] ([id number])[address], [address] [place] [address] 84107Qspriom [Mass/Vol]9.7 mg/dLNormal8.5-10.5[facility] HospitalComment on above:Performed By: #### CBCTrang, BMP ####[facility] ([id number])[address], [address] [place] [address] 83333Zlillgqz [Moles/Vol]87 mmol/EVre69-217BvkNrzehw [facility] HospitalComment on above:Performed By: #### CBCTrang, BMP ####[facility] ([id number])[address] [address], [place] [address]KZ8 [Moles/Vol]37 mmol/NIyfu27-51TwvSdqtyv [facility] HospitalComment on above:Performed By: #### OG, BMP ####[facility] ([id number])[address] [address]Lkkairtvio [Mass/Vol]0.54 mg/dLLow0.60-1.30Pro[facility] HospitalComment on above:Result Comment: METHOD TRACEABLE TO IDMS STANDARDPerformed By: #### OG, BMP ####[facility] ([id number])[address] [address]vHJW (CKD-EPI) NON-RACE DEPENDENT>90Normal>59Pro[facility] Comment on above:Result Comment: Reported eGFR is based on theCKD-EPI 2020 equation that doesnot use a race coefficient.Performed By: #### OG, BMP ####[facility] ([id number])[address] [address]Ndktzuw [Mass/Vol]143 mg/sRFkgi76-48OhlEdumot [place] HospitalComment on above:Performed By: #### OG, BMP ####[facility] ([id number])[address] [address]Vovaamngu [Moles/Vol]3.9 mmol/LNormal3.5-5.0Pro[facility] HospitalComment on above:Performed By: #### OG, BMP ####[facility] ([id number])[address] [address]Tvvugc [Moles/Vol]132 mmol/MWnx147-871TydMxasmx [place] HospitalComment on above:Performed By: #### OG, BMP ####[facility] ([id number])[address] [place] [address]Rxpm nitrogen [Mass/Vol]26 mg/dLNormal5-27[facility] HospitalComment on above:Performed By: #### CBCTrang, BMP ####[facility] ([id number])[address], [place] [address]TFD AND AUTO DIFFon 94-22-5599Dlytwwkcphz distribution width (RBC) [Ratio]17.0 %High11.5-15.0Pro[facility] HospitalComment on above: Performed By: #### CBCA, BMP ####[facility] ([id number])[address], [address] [place] [address] 70547Sffrgdxqep (Bld) [Volume fraction]40.2 % Icmffx25-38JawYhdpsl [facility] HospitalComment on above:Performed By: #### CBCA, BMP ####[facility] ([id number])[address], [address], [place] [address]Dkkjctszgs (Bld) [Mass/Vol]13.1 g/gZNqvqkh53.0-17.0[facility] HospitalComment on above:Performed By: #### CBCA, BMP ####[facility] ([id number])[address], [address] [place] [address] 59831ABJBTKPYSR, ATYPICAL1.0 %NormalProMedica Terrell HospitalComment on above:Performed By: #### CBCA, BMP ####[facility] ([id number])[address], [address] [place] [address] 14388Ojahplutiyk (Bld) [#/Vol]2.5 10*3/uLNormal1.0-3.5[facility] HospitalComment on above:Performed By: #### CBCA, BMP ####[facility] ([id number])[address], [address] [place] [address] 26[address] Lymphocytes/100 WBC (Bld)7.7 %NormalProMedica Tererll HospitalComment on above: Performed By: #### CBCA, BMP ####[facility] ([id number])[address], [address] [place] [address] 81905CDR (RBC) [Entitic mass]29.6 ouGruqky08-35 [facility] HospitalComment on above:Performed By: #### CBCA, BMP ####[facility] ([id number])[address], [place] [address]SGJG (RBC) [Mass/Vol]32.6 g/lJJklvhl22-72PcxBlrgjk [facility] HospitalComment on above:Performed By: #### CBCA, BMP ####[facility] ([id number])[address], [address] [place] [address] 41175XCV (RBC) [Entitic vol]91 aMAdmlrt00-906NsfSjncmd [facility] HospitalComment on above:Performed By: #### CBCA, BMP ####[facility] ([id number])[address], [address], [place] [address]Tkkvtqgbl (Bld) [#/Vol]3.3 10*3/uLHigh0-0.9Pro[facility] HospitalComment on above:Performed By: #### CBCA, BMP ####[facility] ([id number])[address], [place] [address]Xnevolmxz/100 WBC (Bld)11.5 %NormalProMedica Terrell HospitalComment on above:Performed By: #### CBCA, BMP ####[facility] ([id number])[address], [address] [place] [address] 95582Icdtbuemkua (Bld) [#/Vol]23.1 10*3/uLHigh1.5-6.6 [facility] HospitalComment on above:Performed By: #### CBCA, BMP ####[facility] ([id number])[address], [place] [address]Mbmfshjr mean volume (Bld) [Entitic vol]8.4 fLNormal7-12[facility] HospitalComment on above:Performed By: #### CBCTrang, BMP ####[facility] ([id number])[address], [place] [address]Mbjhqjohx (Bld) [#/Vol]457 10*3/bAWxbs669-648EwwGinycd [facility] HospitalComment on above:Performed By: #### CBCTrang, BMP ####[facility] ([id number])[address], [place] [address]LVFXCRLVQODSG9+AbnormalNONEProMedica [facility] Hospital Comment on above:Performed By: #### OG, BMP ####[facility] ([id number])[address], [place] [address]PWC COUNT4.42 X10E12/L Normal4.10-5.70[facility] HospitalComment on above:Performed By: #### OG, BMP ####[facility] ([id number])[address], [place] [address]ORY NXKTWGKWQR59.8 %NormalProMedica Terrell HospitalComment on above:Performed By: #### CBCTrang, BMP ####[facility] ([id number])[address], [place] [address]AJAKMK7+AbnormalNONE [facility] HospitalComment on above:Performed By: #### CBCTrang, BMP ####[facility] ([id number])[address], [place] [address]WSH (Bld) [#/Vol]28.9 10*3/uLHigh4.0-11.0Pro[facility] HospitalComment on above:Performed By: #### CBCA, BMP ####[facility] ([id number])[address], [place] [address]BYDSXFTKTxt 07-03-2023 Magnesium [Mass/Vol]2.3 mg/dLNormal1.8-2.6ProMedica Terrell HospitalComment on above:Performed By: #### 33982-2 ####[facility] ([id number])[address], [address], [place] [address]FIPMFXNW BLOOD GASon 90-24-6205JTJOX'S TESTPassNormalProMedica Terrell HospitalComment on above: Performed By: #### ABG ####[facility] ([id number])[address] [place], [place] [address]Mfay excess Calc (Bld) [Moles/Vol]16.0 mmol/LHigh0.0-2.0 [facility]aggs HospitalComment on above:Performed By: #### ABG ####[facility] ([id number])[address] [place], [place] [address]Mrlq dlkrioyfygg47.6 [degF]Vyizng99.0ProMedica Trerell HospitalComment on above: Performed By: #### ABG ####[facility] ([id number])[address] [place], [place] [address]BBZ7 (Bld) [Moles/Vol]42.1 mmol/UGhwz66-05ZziThvkmx Terrell HospitalComment on above:Performed By: #### ABG ####[facility] ([id number])[address] [place], [place] [address]ZJRM. O2 CONC.1 %NormalProMedica Terrell HospitalComment on above:Performed By: #### ABG ####[facility] ([id number])[address] [place], [place] [address]Vajjyq (Bld) [Partial pressure]65 mm[Hg]Vus86-039KnbLculct Terrell HospitalComment on above:Performed By: #### ABG ####[facility] ([id number])[address] [place] [address]Lpagci saturation in Blood94.0 %Normal>90Pro[facility] Comment on above:Performed By: #### ABG ####[facility] ([id number])[address] [place] [address]QJLHBQ SOURCENCNormalProMercer County Community Hospitalca Braggs HospitalComment on above:Performed By: #### ABG ####[facility] ([address] [place] [address])[address] [place] [address]UUN085.2 HCOCUuch21-62 [facility] Braggs HospitalComment on above:Performed By: #### ABG ####[facility] ([address] [place] [address])[address] [place] [address]qC (Bld)7.507 [pH]High7.350-7.450ProMar[facility] Hospital HospitalComment on above:Performed By: #### ABG ####[facility] ([id number])[address] [place] [address] SAMPLE SITERRadNormalProMarion Hospital HospitalComment on above:Performed By: #### ABG ####[facility] ([id number])[address] [place] [address]RKRJTO TYPEARTERIALNormalProMarion Hospital HospitalComment on above: Performed By: #### ABG ####[facility] ([id number])[address] [place] [address]NUVHR METABOLIC PANLon 94-16-3485Jsvpc gap [Moles/Vol]8 mmol/LNormal5-15ProMercer County Community Hospitalca Braggs HospitalComment on above:Performed By: #### CBCA, BMP, 55611-2, 2777-1 ####[facility] ([id number])[address] [address] [place], [place] [address]Vexcprs [Mass/Vol]9.7 mg/dLNormal8.5-10.5 [facility] SystemComment on above:Performed By: #### ISELA FOLEY, , 2776-03 ####[facility] ([id number])[address], [place] [address]Xhqcnxzi [Moles/Vol]88 mmol/VQes09-967LbkEiycxp [place] HospitalComment on above:Performed By: #### ISELA FOLEY, , 2776-03 ####[facility] ([id number])[address] [address], [place] [address]WR6 [Moles/Vol]40 mmol/ZXxrq14-02FppLipdbp Trinity Health SystemComment on above:Performed By: #### ISELA FOLEY, , 2776-03 ####[facility] ([id number])[address] [address], [place] [address]Nzszleoxrj [Mass/Vol] 0.50 mg/dLLow0.60-1.30ProLicking Memorial HospitalComment on above:Result Comment: METHOD TRACEABLE TO IDMS STANDARDPerformed By: #### ISELA FOLEY, , 2776-03 ####[facility] ([id number])[address] [address], [place] [address]iFEA (CKD-EPI) NON-RACE DEPENDENT>90Normal>59[facility] Comment on above:Result Comment: Reported eGFR is based on theCKD-EPI 2020 equation that doesnot use a race coefficient.Performed By: #### ISELA FOLEY, , 2776-03 ####[facility] ([id number])[address] [address], [place] [address]Gxsfpit [Mass/Vol]105 mg/pONevu06-21JhpGahkniLicking Memorial HospitalComment on above:Performed By: #### ISELA FOLEY, , 2776-03 ####[facility] ([id number])[address], [address] [place] [address] 655[address]Sufcxyfsx [Moles/Vol]4.1 mmol/LNormal3.5-5.0[facility] Comment on above:Performed By: #### ISELA FOLEY, , 2776-03 ####[facility] ([id number])[address] [address] Sodium [Moles/Vol]136 mmol/PMhucfy352-744WbjNxfedq [place] HospitalComment on above:Performed By: #### ISELA FOLEY, , 2776-03 ####[facility] ([id number])[address], [address] [place] [address]Hjjz nitrogen [Mass/Vol]24 mg/dLNormal5-27ProLicking Memorial HospitalComment on above:Performed By: #### ISELA FOLEY, , 2776-03 ####[facility] ([id number])[address], [address] [place] [address] 21538RSA AND AUTO DIFFon 82-49-7569NXBDCPFF BASOPHIL0.1 X10E9/LNormal0.0-0.2PH[facility] Comment on above:Performed By: #### OG, ISELA, , 2776-03 ####[facility] ([id number])[address] [address] ABSOLUTE GHKGZTIGYU99.7 X10E9/LHigh1.5-6.6[facility] HospitalComment on above:Performed By: #### ISELA FOLEY, , 2776-03 ####[facility] ([id number])[address], [address], [place] [address]Coyrypfmn/100 WBC (Bld)0.5 %NormalProMarion Hospital HospitalComment on above:Performed By: #### ISELA FOLEY, , 2776-03 ####[facility] ([id number])[address], [address] [place] [address] 41615Sbxecifviio (Bld) [#/Vol]0.0 10*3/uLNormal 0.0-0.4ProMarion Hospital HospitalComment on above:Performed By: #### OG, ISELA, , 2776-03 ####[facility] ([id number])[address], [address], [place] [address]Xyrrfrguamc/100 WBC (Bld)0.1 %NormalProMarion Hospital HospitalComment on above:Performed By: #### ISELA FOLEY, , 2776-03 ####[facility] ([id number])[address], [address] [place] [address] 86[address]Rdimzayztta distribution width (RBC) [Ratio]16.8 %High11.5-15.0ProMarion Hospital HospitalComment on above:Performed By: #### OG, ISELA, , 2776-03 ####[facility] ([id number])[address] [address] [place] [address] 15524Kjpcaqtakb (Bld) [Volume fraction]39.2 %Hzbash42-98PrrFsiifs [place] HospitalComment on above:Performed By: #### CBCTrang, ISELA, , 2776-03 ####[facility] ([id number])[address] [address] [place] [address]59[address]Yrlrikjlpg (Bld) [Mass/Vol]12.9 g/dLLow13.0-17.0[facility] Comment on above:Performed By: #### CBCTrang, ISELA, , 2776-03 ####[facility] ([id number])[address], [address] [place] [address] Lymphocytes (Bld) [#/Vol]2.7 10*3/uLNormal1.0-3.5PHol[facility] Comment on above:Performed By: #### CBCTrang, ISELA, , 2776-03 ####[facility] ([id number])[address], [address] [place] [address] 41753 Lymphocytes/100 WBC (Bld)10.1 %NormalProMarion Hospital HospitalComment on above: Performed By: #### OG, BMP, , 2776-03 ####[facility] ([id number])[address], [address] [place] [address] 597[address]CIN (RBC) [Entitic mass] 29.6 eeJehiml31-27UwdDlxunp [facility]gs HospitalComment on above:Performed By: #### CBCTrang, ISELA, , 2776-03 ####[facility] ([id number])[address], [address] [place] [address] 53058GGHR (RBC) [Mass/Vol]32.8 g/lVSziblx01-28 [facility] HospitalComment on above:Performed By: #### OG, ISEAL, , 2776-03 ####[facility] ([id number])[address], [address] [place] [address] 02166GGC (RBC) [Entitic vol]90 vGBeluix53-369HqlCqxpic [place] HospitalComment on above:Performed By: #### CBCTrang, BMP, , 2776-03 ####[facility] ([id number])[address], [address] [place] [address] 16584Woqalxqlm (Bld) [#/Vol]4.3 10*3/uLHigh0-0.9ProMercer County Community Hospitalca [facility]rell HospitalComment on above:Performed By: #### CBCA, BMP, , 2776-03 ####[facility] ([id number])[address], [address] [place], [place] [address]Xchklddke/100 WBC (Bld)16.0 %NormalProMedica Terrell HospitalComment on above:Performed By: #### CBCA, BMP, , 2776-03 ####[facility] ([id number])[address], [address], [place] [address]Gbadgejsdhh/100 WBC (Bld) 73.3 %NormalProMedica Terrell HospitalComment on above:Performed By: #### CBCA, BMP, , 2776-03 ####[facility] ([id number])[address], [address] [place], [place] [address]Xtedchgd mean volume (Bld) [Entitic vol]8.3 fL Normal7-12ProMedica Terrell HospitalComment on above:Performed By: #### CBCA, BMP, , 2776-03 ####[facility] ([id number])[address], [address], [place] [address]Akzlmvboh (Bld) [#/Vol]468 10*3/wTHuxw094-374 [facility] HospitalComment on above:Performed By: #### CBCA, BMP, , 2776-03 ####[facility] ([id number])[address], [address], [place] [address]RTN COUNT4.34 X10E12/LNormal4.10-5.70[facility]ica [facility]rell HospitalComment on above:Performed By: #### CBCA, BMP, , 2776-03 ####[facility] ([id number])[address], [address], [place] [address]UXP (Bld) [#/Vol]26.9 10*3/uLHigh4.0-11.0ProLicking Memorial HospitalComment on above:Performed By: #### ISELA FOLEY, , 2776-03 ####[facility] ([id number])[address], [address] [place] [address] 039[address]Veikfe D-dimer DDU (PPP) [Mass/Vol]on 07-02-2023 XLCTQ6287 ng/mL DDUHigh<255ProLicking Memorial HospitalComment on above:Result Comment: Results >=255ng/mL DDU: Results may beindicative of the presence of VTE. The useof the Wells score and further diagnostictests should be considered. Elevated D-Dimerlevels can alsobe associated with DIC,neoplasm, , trauma and liver disease.Elevated levels of rheumatoid factor may leadto an overestimation of the D-Dimer level. Performed By: #### 16848-4 ####[facility] ([id number])[address], [address] [place] [address] 06144MRDYUBZAKto 58-61-7072Ldybdumox [Mass/Vol] 1.7 mg/dLLow1.8-2.6ProLicking Memorial HospitalComment on above:Performed By: #### ISEAL FOLEY, , 2776-03 ####[facility] ([id number])[address], [address] [place] [address] 96448QSCETVLFCKrf 94-02-1086Yhsgowfmx [Mass/Vol] 3.4 mg/dLNormal2.4-4.9ProLicking Memorial HospitalComment on above:Performed By: #### ISELA FOLEY, , 2776-03 ####[facility] ([id number])[address], [address] [place] [address] 59287FO CHEST 1 VWon 07-02-2023 XR CHEST 1 VWNormalProLicking Memorial HospitalBASIC METABOLIC PANLon 07-01-2023 Anion gap [Moles/Vol]10 mmol/LNormal5-15[facility]rell HospitalComment on above:Performed By: #### OG, BMP ####[facility] ([id number])[address] [address], [place] [address]Antnerh [Mass/Vol]10.1 mg/dLNormal8.5-10.5Pro[facility] HospitalComment on above:Performed By: #### OG, BMP ####[facility] ([id number])[address], [address], [place] [address]Ihrtjdob [Moles/Vol]87 mmol/DUeh14-452NpoHiarqs [facility] HospitalComment on above:Performed By: #### OG, BMP ####[facility] ([id number])[address] [address] [place] [address] 34791KQ5 [Moles/Vol] 39 mmol/PIzhx42-46LgmPaicic [place] HospitalComment on above:Performed By: #### OG, BMP ####[facility] ([id number])[address] [address] [place] [address] 42983Xwsxqekqjw [Mass/Vol]0.55 mg/dLLow0.60-1.30ProMercer County Community Hospitalca [facility]rell HospitalComment on above:Result Comment: METHOD TRACEABLE TO IDMS STANDARD Performed By: #### OG, BMP ####[facility] ([id number])[address] [address] [place] [address] 06156dKJM (CKD-EPI) NON-RACE DEPENDENT>90Normal >59[facility]rell HospitalComment on above:Result Comment: Reported eGFR is based on theCKD-EPI 2020 equation that doesnot use a race coefficient.Performed By: #### OG, BMP ####[facility] ([id number])[address] [address] [place] [address] 86188Unxmljj [Mass/Vol]82 mg/fUPgmdml29-95KmdVjrkhw [facility]rell HospitalComment on above:Performed By: #### CBCA, BMP ####[facility] ([id number])[address], [address] [place] [address] 832[address]Svfbhrime [Moles/Vol]3.8 mmol/LNormal3.5-5.0[facility] HospitalComment on above: Performed By: #### CBCA, BMP ####[facility] ([id number])[address], [address], [place] [address]Hpmhuw [Moles/Vol]136 mmol/IOhtsaq909-134 [facility] HospitalComment on above:Performed By: #### CBCA, BMP ####[facility] ([id number])[address], [address] [place] [address] 88790Qgge nitrogen [Mass/Vol]22 mg/dLNormal5-27[facility] HospitalComment on above:Performed By: #### CBCA, BMP ####[facility] ([id number])[address], [address] [place] [address] 36997QGR AND AUTO DIFFon 06-32-8039Wjmg form neutrophils/100 WBC (Bld)1.0 %NormalProMedica Terrell HospitalComment on above:Performed By: #### CBCA, BMP ####[facility] ([id number])[address], [address] [place] [address] 93893Fezpageqnxq (Bld) [#/Vol]0.2 10*3/uLNormal0.0-0.4[facility] HospitalComment on above: Performed By: #### CBCA, BMP ####[facility] ([id number])[address], [address] [place] [address] 693[address]Jowcdenmkqg/100 WBC (Bld)1.0 %Normal [facility] HospitalComment on above:Performed By: #### CBCA, BMP ####[facility] ([id number])[address], [address], [place] [address]Llhjqhztcbp distribution width (RBC) [Ratio]17.3 %High11.5-15.0Pro[facility] Hospital HospitalComment on above:Performed By: #### CBCA, BMP ####[facility] ([id number])[address], [address], [place] [address]Bkgvbwpjqp (Bld) [Volume fraction]41.6 %Ufszir54-66RthCynltz [place] HospitalComment on above:Performed By: #### CBCA, BMP ####[facility] ([id number])[address], [address], [place] [address]Kpwfzzabzp (Bld) [Mass/Vol] 13.5 g/eIAocpzt51.0-17.0Pro[facility] HospitalComment on above:Performed By: #### CBCA, BMP ####[facility] ([id number])[address] [address], [place] [address]Gstfdmipaqq (Bld) [#/Vol]1.7 10*3/uLNormal1.0-3.5 [facility] HospitalComment on above:Performed By: #### CBCA, BMP ####[facility] ([id number])[address] [address], [place] [address]Wdytqarsrgt/100 WBC (Bld)7.0 %NormalProMarion Hospital HospitalComment on above:Performed By: #### CBCA, BMP ####[facility] ([id number])[address], [address], [place] [address]KOP (RBC) [Entitic mass] 29.7 ifCcpirv53-25JwqEzjhyi [place] HospitalComment on above:Performed By: #### CBCA, BMP ####[facility] ([id number])[address], [address], [place] [address]NMRB (RBC) [Mass/Vol]32.4 g/bZDedtpq41-27PbfWelubr [facility] HospitalComment on above:Performed By: #### CBCA, BMP ####[facility] ([id number])[address], [address] [place] [address] 42710MUH (RBC) [Entitic vol]92 nROsuzyk62-128TyjUxxpem [facility] HospitalComment on above: Performed By: #### CBCA, BMP ####[facility] ([id number])[address], [address] [place] [address] 35[address]Ilraefack (Bld) [#/Vol]3.4 10*3/uLHigh0-0.9 [facility] HospitalComment on above:Performed By: #### CBCA, BMP ####[facility] ([id number])[address], [address] [place] [address] 40472Faxyvmyta/100 WBC (Bld)14.0 %NormalProMedica Terrell HospitalComment on above:Performed By: #### CBCA, BMP ####[facility] ([id number])[address], [address] [place] [address] 55082Vyxnxkzxffm (Bld) [#/Vol] 19.0 10*3/uLHigh1.5-6.6[facility] HospitalComment on above:Performed By: #### CBCA, BMP ####[facility] ([id number])[address], [address] [place] [address] 52029Axzwqqlv mean volume (Bld) [Entitic vol]8.1 fLNormal 7-12[facility] HospitalComment on above:Performed By: #### CBCA, BMP ####[facility] ([id number])[address], [address] [place] [address] 63649Llqzmlzxs (Bld) [#/Vol]499 10*3/zCHlst524-352SafZapxaq [facility] Comment on above:Performed By: #### CBCA, BMP ####[facility] ([id number])[address] [place] [address] 08606HBJJUAGMDOCGF2+AbnormalNONE [facility] HospitalComment on above:Performed By: #### CBCA, BMP ####[facility] ([id number])[address], [address] [place] [address] 03061XUQ COUNT4.55 X10E12/LNormal4.10-5.70[facility] HospitalComment on above:Performed By: #### CBCTrang, BMP ####[facility] ([id number])[address] [address] [place] [address] 48462MDK RAMHFHPZRV63.0 %Normal [facility] HospitalComment on above:Performed By: #### CBCA, BMP ####[facility] ([id number])[address], [address] [place] [address] 98797PRD (Bld) [#/Vol]24.3 10*3/uLHigh4.0-11.0[facility] HospitalComment on above:Performed By: #### CBCA, BMP ####[facility] ([id number])[address], [address] [place] [address] 665[address]KJG AND AUTO DIFFon 99-19-6600Psaxowaprii distribution width (RBC) [Ratio]16.9 %High11.5-15.0 [facility] HospitalComment on above:Performed By: #### CBCA, CMP ####[facility] ([id number])[address], [address] [place] [address] 50946Yesuvgyqff (Bld) [Volume fraction]35.5 %Cmv61-42UjvPjyvgyHolmes County [facility] Comment on above:Performed By: #### CBCA, CMP ####[facility] ([id number])[address], [address], [place] [address]Zzwfuntyrs (Bld) [Mass/Vol] 11.6 g/dLLow13.0-17.0[facility] HospitalComment on above:Performed By: #### CBCA, CMP ####[facility] ([id number])[address], [address], [place] [address]Tsxdwzofnyx (Bld) [#/Vol]3.1 10*3/uLNormal1.0-3.5 [facility] HospitalComment on above:Performed By: #### CBCA, CMP ####[facility] ([id number])[address], [place] [address]Jnhmeliycie/100 WBC (Bld)13.0 %NormalProMedica Braggs HospitalComment on above:Performed By: #### CBCA, CMP ####[facility] ([id number])[address], [address], [place] [address]PSU (RBC) [Entitic mass] 29.9 rzLsclmq48-92QrjYhsxjy [facility] HospitalComment on above:Performed By: #### CBCA, CMP ####[facility] ([id number])[address], [place] [address]UWAU (RBC) [Mass/Vol]32.7 g/aGIpsham40-49RkhVphvkm [facility] HospitalComment on above:Performed By: #### CBCA, CMP ####[facility] ([id number])[address], [place] [address]GCS (RBC) [Entitic vol]92 cEZtdani16-469KqlHfielw [facility] HospitalComment on above: Performed By: #### CBCA, CMP ####[facility] ([id number])[address], [address], [place] [address]Qesucwehx (Bld) [#/Vol]2.4 10*3/uLHigh0-0.9 [facility] HospitalComment on above:Performed By: #### CBCA, CMP ####[facility] ([id number])[address] [place] [address]Jtxjpwqsg/100 WBC (Bld)10.0 %NormalProMedica Terrell HospitalComment on above:Performed By: #### CBCA, CMP ####[facility] ([id number])[address], [place] [address]IBEVRJVVC5.0 %Normal [facility] HospitalComment on above:Performed By: #### CBCA, CMP ####[facility] ([id number])[address], [place] [address]Ppismbavqyc (Bld) [#/Vol]17.8 10*3/uLHigh1.5-6.6[facility] Comment on above:Performed By: #### CBCA, CMP ####[facility] ([id number])[address] [place] [address]Ylcapavu mean volume (Bld) [Entitic vol]8.1 fLNormal7-12[facility] HospitalComment on above:Performed By: #### CBCA, CMP ####[facility] ([id number])[address], [place] [address]Ivuittccq (Bld) [#/Vol]475 10*3/zQVrie948-965OqgUvnmbe [facility] HospitalComment on above:Performed By: #### CBCA, CMP ####[facility] ([id number])[address], [place] [address]LAOGOIUEKOHEW 1+AbnormalNONEProMedica Terrell HospitalComment on above:Performed By: #### CBCA, CMP ####[facility] ([id number])[address], [address], [place] [address]FPY COUNT3.88 X10E12/LLow4.10-5.70[facility] Comment on above:Performed By: #### CBCTrang, CMP ####[facility] ([id number])[address], [place] [address]XAS EYYHHWMQQX43.0 %Normal [facility]MW[facility] HospitalComment on above:Performed By: #### CBCA, CMP ####[facility] ([id number])[address], [place] [address]UON (Bld) [#/Vol]23.8 10*3/uLHigh4.0-11.0ProLicking Memorial HospitalComment on above:Performed By: #### CBCTrang, CMP ####[facility] ([id number])[address], [place] [address]ODJASYZWPENWA METABOLIC PANELon 26-91-2488Vyifrfp [Mass/Vol]2.3 g/dLLow3.2-5.3PHolmes [facility] Comment on above:Performed By: #### CBCTrang, CMP ####[facility] ([id number])[address], [place] [address]UAQ [Catalytic activity/Vol]95 U/YQickwe53-819KjpTbmirh [place] HospitalComment on above: Performed By: #### CBCA, CMP ####[facility] ([id number])[address] [address]WAR [Catalytic activity/Vol]22 U/LNormal0-40 [facility] HospitalComment on above:Performed By: #### CBCA, CMP ####[facility] ([id number])[address], [place] [address]Grilv gap [Moles/Vol]7 mmol/LNormal5-15[facility] HospitalComment on above:Performed By: #### CBCTrang, CMP ####[facility] ([id number])[address], [address], [place] [address]MMH [Catalytic activity/Vol]17 U/LNormal0-41[facility] HospitalComment on above:Performed By: #### CBCA, CMP ####[facility] ([id number])[address], [address], [place] [address]Wpvmrkols [Mass/Vol]0.6 mg/dLNormal0.3-1.2[facility] HospitalComment on above:Performed By: #### CBCTrang, CMP ####[facility] ([id number])[address], [address]T[facility], [place] [address]Uhhayrb [Mass/Vol]9.1 mg/dLNormal8.5-10.5Pro[facility] HospitalComment on above: Performed By: #### CBCTrang, CMP ####[facility] ([id number])[address], [address]T[facility], [place] [address]Dyigrvtj [Moles/Vol]95 mmol/TWzs13-267 [facility] HospitalComment on above:Performed By: #### CBCA, CMP ####[facility] ([id number])[address], [address], [place] [address]AU8 [Moles/Vol]36 mmol/YQkrf52-48XtuNvtcae Terrell HospitalComment on above:Performed By: #### CBCA, CMP ####[facility] ([id number])[address], [address], [place] [address]Idzwaexryw [Mass/Vol]0.48 mg/dLLow0.60-1.30[facility] HospitalComment on above:Result Comment: METHOD TRACEABLE TO IDMS STANDARDPerformed By: #### CBCTrang, CMP ####[facility] ([id number])[address], [place] [address]sUDI (CKD-EPI) NON-RACE DEPENDENT>90Normal>59Pro[facility] HospitalComment on above:Result Comment: Reported eGFR is based on theCKD-EPI 2020 equation that doesnot use a race coefficient.Performed By: #### OG, CMP ####[facility] ([id number])[address] [address], [place] [address]Evjkphp [Mass/Vol]75 mg/lVWsvjxf31-29CnwLmysiy [place] HospitalComment on above:Performed By: #### OG, CMP ####[facility] ([id number])[address] [address]Recgdcmeb [Moles/Vol]4.1 mmol/LNormal3.5-5.0Pro[facility] HospitalComment on above:Performed By: #### OG, CMP ####[facility] ([id number])[address] [address]Xofofvc [Mass/Vol]5.2 g/dLLow6.0-8.0Pro[facility] HospitalComment on above:Performed By: #### OG, CMP ####[facility] ([id number])[address] [address], [place] [address]Lnqdtx [Moles/Vol]138 mmol/XHpgpht320-408LaoNfmwpr [place] HospitalComment on above:Performed By: #### CBCTrang, CMP ####[facility] ([id number])[address] [address]Mtsp nitrogen [Mass/Vol]15 mg/dLNormal5-27Pro[facility] HospitalComment on above:Performed By: #### CBCA, CMP ####[facility] ([id number])[address] [address], [place] [address]Blwxyehutnlmf Ag IA Qnon 40-74-6772YLCZWIAVJND AG - BLOOD ONLYSee BelowNormalSalem Regional Medical Center on above:Result Comment: NOTETEST RESULT FLAG UNIT REF.RANGE Asper. Ag Ser,Qual Negative NegativeAspergillus Galactomannan antigen assay isused as an aid indiagnosis of invasive aspergillosis in immunocompromisedindividuals especially in post-stem cell transplant,hematological malignancies on chemotherapy, and HIV-positivepatients with very low CD4 T-cell counts. The test may alsobe used in disease prognostication and for monitoringresponse to anti-fungal therapy. False positive and falsenegative results are not uncommon. Clinical and radiologicalcorrelation is required.Aspergillus Ag,Ser 0.05 Index Value<=0.49 Test Performed By: [place] [address] Top Cleaner: Demond Jeff III, M.D. CLIA #[id number]. capsulatum Ag (U) [Mass/Vol]on [id number] ANTIGEN RESULTNot detected NormalNot [facility] on above:Result Comment: NOTENo Histoplasma antigen detected.False negative results may occur. Repeat testing on anew specimen should be considered if clinically indicated. HISTOPLASMA ANTIGEN VALUENot detectedNoMercy Health Allen Hospital on above:Result Comment: NOTE ADDITIONAL INFORMATION This test has been modified from the thread checker'sinstructions. Its performance characteristics weredetermined by [facility] in a manner consistent withCLIA requirements. This test has not been cleared orapproved by the U.S. Food and Drug Administration.Test Performed by:[address] Director: Rey Nunez M.D. Ph.D.; CLIA# [id number] HISTOPLASMA ANTIBODIES BY CF and IDon [id number] AB,PRECPNot detected NormalNot DetectedSalem Regional Medical Center on above:Result Comment: NOTENo Histoplasma antibodies were detected. This result does notexclude Histoplasma infection.Performed By: [employer] [address] [place] [id number] Director: Kiko Coon MD, PhDCLIA Number: [id number] MYCELIA,CF<1:8Normal<1:8[facility] on above:Result Comment: NOTEINTERPRETIVE INFORMATION: Histoplasma Mycelia Antibodies by FOREST SUPERVISOR titer of 1:8 orgreater is generally considered presumptiveevidence of histoplasmosis. A titer of 1:32 or greater or risingtiters indicate strong presumptive evidence of histoplasmosis.Cross reactions, usually at lower titers, may occur with otherfungal diseases. HISTOPLASMA YEAST,CF<1:8Normal<1:8[facility] on above: Result Comment: NOTEINTERPRETIVE INFORMATION: Histoplasma Yeast Antibodies by FOREST SUPERVISOR titer of 1:8 or greater is generally considered presumptiveevidence of histoplasmosis. A titer of 1:32 or greater or risingtiters indicate strong presumptive evidence of histoplasmosis.Cross reactions, usually at lower titers, may occur with otherfungal diseases.Reference Lab Test IDon [id number] AssaySee BelowNormalSalem Regional Medical Center on above:Result Comment: NOTETEST RESULT FLAG UNIT REF.RANGE (1,3) B-D Glucan, [...] to yield lowserum (1,3)-??-D-glucan titers. In addition, theyeast phaseof Blastomyces dermatitidis produces little (1,3)-??-D-glucanand may not be detected by the assay. Test Performed By: [place] [address]Laboratory Director: Demond Jeff III, M.D. CLIA #[id number] [facility] BelowNormMercy Health Springfield Regional Medical CenterComment on above:Result Comment: NOTETEST RESULT FLAG UNIT REF.RANGE Histoplasma Ag 0.00 ng/mL <0.20REPORTABLE RANGE: 2ng/mL - 20.0ng/mL; Results above 20.0ng/mL arereported as Positive, Above the Limit of QuantificationThis test was developed and its performance characteristicsdetermined by [employer]. It has not been clearedor approved by the FDA; however, FDA clearance or approvalis not currently required for clinical use. Theresults arenot intended to be used as the sole means for clinicaldiagnosis or patient management decisions. Test Performed by: [employer] [address] [facility]. [facility] [place] [address] Top Cleaner: Amadeo Novak MD CLIA #[id number] Noteon [id number] Note [id number]#1.00TIFFNormalKettering Health Greene MemorialCBC AND AUTO DIFFon 75-56-0943Qozu form neutrophils/100 WBC (Bld)1.0 % NormalHolmes County Joel Pomerene Memorial HospitalComment on above:Performed By: #### CBCA, CMP ####[facility] ([id number])[address], [address], [place] [address]RENV0+AbnormalNONEProMedica Braggs HospitalComment on above:Performed By: #### CBCA, CMP ####[facility] ([id number])[address], [address], [place] [address]Lrkhdxpqidi distribution width (RBC) [Ratio]17.2 %High 11.5-15.0ProMarion Hospital HospitalComment on above:Performed By: #### CBCA, CMP ####[facility] ([id number])[address], [address], [place] [address]Tqhgdkzdly (Bld) [Volume fraction]35.3 %Yoi55-14NddAdmxwd [facility] Comment on above:Performed By: #### CBCA, CMP ####[facility] ([id number])[address], [address], [place] [address]Tbybrbytrt (Bld) [Mass/Vol] 11.6 g/dLLow13.0-17.0[facility] HospitalComment on above:Performed By: #### CBCA, CMP ####[facility] ([id number])[address] [address] [place] [address]Npxanrwipik (Bld) [#/Vol]1.9 10*3/uLNormal1.0-3.5 [facility] HospitalComment on above:Performed By: #### CBCA, CMP ####[facility] ([id number])[address], [address], [place] [address]Ilkyxftrwmo/100 WBC (Bld)7.0 %NormalProMarion Hospital HospitalComment on above:Performed By: #### CBCA, CMP ####[facility] ([id number])[address], [address] [place] [address]IIE (RBC) [Entitic mass] 29.8 owOnznxd77-84JviCpvrwd [facility] HospitalComment on above:Performed By: #### CBCA, CMP ####[facility] ([id number])[address], [address] [place] [address]EFJH (RBC) [Mass/Vol]32.9 g/uNCylcuc56-80NzoVivnqi [facility] HospitalComment on above:Performed By: #### CBCA, CMP ####[facility] ([id number])[address], [address] [place] [address]ACA (RBC) [Entitic vol]91 kACjowkp72-770JvaMxmhyj [facility] HospitalComment on above: Performed By: #### CBCA, CMP ####[facility] ([id number])[address], [address] [place] [address]Kcdeqrmnk (Bld) [#/Vol]2.8 10*3/uLHigh0-0.9 [facility] HospitalComment on above:Performed By: #### CBCA, CMP ####[facility] ([id number])[address], [address] [place] [address]Rhdtmwcyy/100 WBC (Bld)10.0 %NormalProMedica Terrell HospitalComment on above:Performed By: #### CBCA, CMP ####[facility] ([id number])[address], [address] [place] [address]Aekmoncntxo (Bld) [#/Vol] 23.0 10*3/uLHigh1.5-6.6ProMedica [facility] HospitalComment on above:Performed By: #### CBCA, CMP ####[facility] ([id number])[address], [address] [place] [address]GTFHCRCNX0+AbnormalNONEProMedica Terrell HospitalComment on above:Performed By: #### CBCA, CMP ####[facility] ([id number])[address], [address], [place] [address]Cxnmrbof mean volume (Bld) [Entitic vol]8.0 fLNormal7-12ProMedica [facility]rell HospitalComment on above:Performed By: #### CBCA, CMP ####[facility] ([id number])[address], [address], [place] [address]Fviohbmqb (Bld) [#/Vol]513 10*3/sUDkcf099-790RdlKotsuk Terrell HospitalComment on above:Performed By: #### CBCA, CMP ####[facility] ([id number])[address], [address], [place] [address]LRG COUNT3.90 X10E12/LLow4.10-5.70[facility] HospitalComment on above:Performed By: #### CBCA, CMP ####[facility] ([id number])[address], [address], [place] [address]HUE IGSMPQAGBL10.0 %NormalProMercer County Community Hospitalca [facility] Comment on above:Performed By: #### CBCA, CMP ####[facility] ([id number])[address], [address], [place] [address]UJB (Bld) [#/Vol]27.7 10*3/uLHigh4.0-11.0Pro[facility] HospitalComment on above:Performed By: #### CBCA, CMP ####[facility] ([id number])[address], [address], [place] [address]HQLIFROTISLJS METABOLIC PANELon 46-77-1098Fsphddj [Mass/Vol] 2.3 g/dLLow3.2-5.3ProMedica [facility] HospitalComment on above:Performed By: #### CBCA, CMP ####[facility] ([id number])[address], [address], [place] [address]MLR [Catalytic activity/Vol]100 U/ZVrpyjz21-240ZjoOviget [facility] HospitalComment on above:Performed By: #### CBCTrang, CMP ####[facility] ([id number])[address], [address], [place] [address]HOV [Catalytic activity/Vol]23 U/LNormal0-40Pro[facility] HospitalComment on above: Performed By: #### CBCA, CMP ####[facility] ([id number])[address], [address], [place] [address]Uqlrr gap [Moles/Vol]8 mmol/LNormal5-15 [facility] HospitalComment on above:Performed By: #### CBCTrang, CMP ####[facility] ([id number])[address], [address], [place] [address]EKE [Catalytic activity/Vol]17 U/LNormal0-41[facility] Comment on above:Performed By: #### CBCTrang, CMP ####[facility] ([id number])[address], [address], [place] [address]Mfayuyzyj [Mass/Vol]0.5 mg/dLNormal0.3-1.2[facility] HospitalComment on above:Performed By: #### CBCTrang, CMP ####[facility] ([id number])[address], [address], [place] [address]Cgwhjjg [Mass/Vol]9.0 mg/dLNormal8.5-10.5[facility] HospitalComment on above:Performed By: #### CBCA, CMP ####[facility] ([id number])[address], [address], [place] [address]Wmpywewx [Moles/Vol]99 mmol/VDxoors10-408RecYyqvnr [facility] HospitalComment on above: Performed By: #### CBCA, CMP ####[facility] ([id number])[address], [address] [address]BC[address] [Moles/Vol]31 mmol/FEmvkji22-17RqaPlycux [facility] HospitalComment on above:Performed By: #### OG, CMP ####[facility] ([id number])[address] [place] [address] Creatinine [Mass/Vol]0.45 mg/dLLow0.60-1.30Pro[facility] Hospital HospitalComment on above:Result Comment: METHOD TRACEABLE TO IDMS STANDARDPerformed By: #### OG, CMP ####[facility] ([id number])[address], [address], [place] [address]gQVZ (CKD-EPI) NON-RACE DEPENDENT>90Normal>59Pro[facility] Hospital HospitalComment on above:Result Comment: Reported eGFR is based on theCKD-EPI 2020 equation that doesnot use a race coefficient.Performed By: #### OG, CMP ####[facility] ([id number])[address] [address] [place], [place] [address]Cehbper [Mass/Vol]112 mg/hARdbm86-54KqsPjddzm [facility] HospitalComment on above:Performed By: #### OG, CMP ####[facility] ([id number])[address] [address] [place], [place] [address]Gjkpmjstk [Moles/Vol]4.2 mmol/LNormal3.5-5.0Pro[facility] HospitalComment on above:Performed By: #### CBCTrang, CMP ####[facility] ([id number])[address] [address], [place] [address]Vlpweni [Mass/Vol]5.0 g/dLLow6.0-8.0Pro[facility] Hospital Comment on above:Performed By: #### CBCTrang, CMP ####[facility] ([id number])[address], [address] [place] [address]Fktenj [Moles/Vol]138 mmol/WZnxgwy122-257JcmValzdb [facility] HospitalComment on above:Performed By: #### OG CMP ####[facility] ([id number])[address], [address] [place] [address]Vuey nitrogen [Mass/Vol]12 mg/dLNormal5-27[facility] HospitalComment on above:Performed By: #### CBCTrang, CMP ####[facility] ([id number])[address], [address] [place] [address]RIUM PATHOGENS/QTDB-MyD-2jp 25-01-2430Mknxfbsxazy pathogens DNA and RNA panel DENIS+non-probe (Nph)NormalProMercer County Community Hospitalca [facility]ag[facility] HospitalComment on above:Performed By: #### 02896-6 ####[facility] ([id number])[address], [address] [place] [address]XE CHEST 1 VWon 64-19-5420ZL CHEST 1 VWNormalProMedica Braggs HospitalCBC AND AUTO DIFFon 52-02-8103XVAGHNBG BASOPHIL0.1 X10E9/LNormal 0.0-0.2[facility] HospitalComment on above:Performed By: #### MAGALI FOLEY, 2532-0 ####[facility] ([id number])[address], [address] [place] [address]RJHXQPBS HZAUNNVQEN22.3 X10E9/LHigh1.5-6.6Pro[facility] HospitalComment on above:Performed By: #### MAGALI FOLEY, 2531-0 ####[facility] ([id number])[address], [address] [place] [address] Basophils/100 WBC (Bld)0.5 %NormalProMedica Braggs HospitalComment on above: Performed By: #### OG CMP, 2531-0 ####[facility] ([id number])[address] [address], [place] [address]Aizrohnrnau (Bld) [#/Vol] 0.0 10*3/uLNormal0.0-0.4Pro[facility] HospitalComment on above:Performed By: #### CBCTrang CMP, 253-0 ####[facility] ([id number])[address] [address], [place] [address]Ecowbzszcas/100 WBC (Bld)0.0 %Normal ProMWadsworth-Rittman Hospital HospitalComment on above:Performed By: #### CBCMAGALI Costello, 2531-0 ####[facility] ([id number])[address] [address]Wloufhveabc distribution width (RBC) [Ratio]17.3 %High11.5-15.0[facility] HospitalComment on above:Performed By: #### CBCMAGALI Costello, 2531-0 ####[facility] ([id number])[address] [address] [address] Hematocrit (Bld) [Volume fraction]36.1 %Qic19-59OewLphnqi [facility] HospitalComment on above:Performed By: #### CBCMAGALI Costello, 2531-0 ####[facility] ([id number])[address] [address] [place] [address]Yumlyheokv (Bld) [Mass/Vol] 12.0 g/dLLow13.0-17.0Pro[facility] HospitalComment on above:Performed By: #### CBCTrang CMP, 2531-0 ####[facility] ([id number])[address] [address]Ypyfhibaqxb (Bld) [#/Vol]2.0 10*3/uLNormal 1.0-3.5PPomerene Hospital HospitalComment on above:Performed By: #### CBCA CMP, 2531-0 ####[facility] ([id number])[address], [address], [place] [address]Xxnncqqrrvm/100 WBC (Bld)8.6 %NormalProMercer County Community Hospitalca [facility] Comment on above:Performed By: #### CBCA, CMP, 2531-0 ####[facility] ([id number])[address], [place] [address]AJI (RBC) [Entitic mass]30.4 pyZzqvrh97-04XyqTjlyxv [facility] HospitalComment on above: Performed By: #### CBCA, CMP, 2531-0 ####[facility] ([id number])[address], [address] [place] [address]FXHP (RBC) [Mass/Vol]33.1 g/pPLjtobo40-23OdjVivxyh [facility] HospitalComment on above:Performed By: #### CBCA, CMP, 2531-0 ####[facility] ([id number])[address], [place] [address]DWL (RBC) [Entitic vol]92 zXVzlmxp04-531RvjTphdjq [facility] HospitalComment on above:Performed By: #### CBCA, CMP, 2531-0 ####[facility] ([id number])[address], [address] [place] [address] Monocytes (Bld) [#/Vol]3.5 10*3/uLHigh0-0.9Pro[facility] HospitalComment on above:Performed By: #### CBCA, CMP, 2531-0 ####[facility] ([id number])[address] [place] [address]Pabvowzit/100 WBC (Bld)15.3 %NormalProMercer County Community Hospitalca [facility] HospitalComment on above:Performed By: #### CBCA, CMP, 2531-0 ####[facility] ([id number])[address] [address] [place] [address]Rcnasomfnav/100 WBC (Bld)75.6 %NormalProMarion Hospital HospitalComment on above:Performed By: #### CBCA, CMP, 253-0 ####[facility] ([id number])[address] [address] [place] [address] Platelet mean volume (Bld) [Entitic vol]8.5 fLNormal7-12Pro[facility] HospitalComment on above:Performed By: #### CBCTrang, CMP, 2531-0 ####[facility] ([id number])[address] [address] Platelets (Bld) [#/Vol]486 10*3/hGCvey198-100VivYmzesc [facility] HospitalComment on above:Performed By: #### CBCTrang, CMP, 2531-0 ####[facility] ([id number])[address] [address]OCA COUNT3.93 X10E12/LLow 4.10-5.70Pro[facility] HospitalComment on above:Performed By: #### CBCA, CMP, 2531-0 ####[facility] ([id number])[address] [address]AEO (Bld) [#/Vol]22.9 10*3/uLHigh4.0-11.0ProMercer County Community Hospitalca [facility] HospitalComment on above:Performed By: #### CBCA, CMP, 2532-0 ####[facility] ([id number])[address] [address] COMPREHENSIVE METABOLIC PANELon 38-18-1561Silcaqm [Mass/Vol]2.3 g/dLLow3.2-5.3 [facility] HospitalComment on above:Performed By: #### CBCA, CMP, 2532-0 ####[facility] ([id number])[address], [place] [address]RAN [Catalytic activity/Vol]102 U/ZAcmbdw85-963TquWlsydlHolmes County Joel Pomerene Memorial Hospital Comment on above:Performed By: #### OG CMP, 2531-0 ####[facility] ([id number])[address], [place] [address]KAP [Catalytic activity/Vol]23 U/LNormal0-40ProLicking Memorial HospitalComment on above:Performed By: #### MAGALI FOLEY, 2531-0 ####[facility] ([id number])[address], [place] [address]Wdspk gap [Moles/Vol]9 mmol/LNormal5-15 [facility] SystemComment on above:Performed By: #### MAGALI FOLEY, 2531-0 ####[facility] ([id number])[address], [place] [address]XKB [Catalytic activity/Vol]17 U/LNormal0-41[facility] Comment on above:Performed By: #### MAGALI FOLEY, 2531-0 ####[facility] ([id number])[address], [place] [address]Wrhzajeys [Mass/Vol]0.5 mg/dLNormal0.3-1.2ProMedRegency Hospital [place] HospitalComment on above: Performed By: #### OG CMP, 2531-0 ####[facility] ([id number])[address], [address], [place] [address]Ppuofqe [Mass/Vol]8.7 mg/dL Normal8.5-10.5PPomerene Hospital HospitalComment on above:Performed By: #### OG CMP, 2531-0 ####[facility] ([id number])[address] [place], [place] [address]Nitdppeh [Moles/Vol]103 mmol/LChhkgk45-673SrlVrvhke [facility] HospitalComment on above:Performed By: #### MAGALI FOLEY, 2531-0 ####[facility] ([id number])[address] [address], [place] [address]LQ9 [Moles/Vol]28 mmol/ZLywkuz84-92UbmVjujjc [facility] HospitalComment on above: Performed By: #### MAGALI FOLEY, 2531-0 ####[facility] ([id number])[address] [address] [place], [place] [address]Dvcaawwexe [Mass/Vol]0.45 mg/dLLow0.60-1.30[facility] HospitalComment on above:Result Comment: METHOD TRACEABLE TO IDMS STANDARDPerformed By: #### MAGALI FOLEY, 0 ####[facility] ([id number])[address] [address], [place] [address]wEXD (CKD-EPI) NON-RACE DEPENDENT>90Normal>59Pro[facility] HospitalComment on above:Result Comment: Reported eGFR is based on theCKD-EPI 2020 equation that doesnot use a race coefficient.Performed By: #### MAGALI FOLEY, 2531-0 ####[facility] ([id number])[address] [address], [place] [address] Glucose [Mass/Vol]190 mg/mVLsql55-56ZbeZvfhcl [facility] HospitalComment on above: Performed By: #### MAGALI FOLEY, 2531-0 ####[facility] ([id number])[address] [address], [place] [address]Iczobhkby [Moles/Vol]4.1 mmol/LNormal3.5-5.0[facility] HospitalComment on above:Performed By: #### MAGALI FOLEY, 2531-0 ####[facility] ([id number])[address], [place] [address]Zpspfuk [Mass/Vol]5.6 g/dLLow6.0-8.0[facility] HospitalComment on above:Performed By: #### MAGALI FOLEY, 2532-0 ####[facility] ([id number])[address] [address] Sodium [Moles/Vol]140 mmol/AZwzemg772-664TqiDnntva [facility] HospitalComment on above:Performed By: #### MAGALI FOLEY, 2531-0 ####[facility] ([id number])[address], [place] [address]Gtnj nitrogen [Mass/Vol]11 mg/dLNormal5-27ProMercer County Community Hospitalca [facility] HospitalComment on above:Performed By: #### MAGALI FOLEY, 2531-0 ####[facility] ([id number])[address] [address], [place] [address]EPR [Catalytic activity/Vol]on 75-46-8884EMA921 U/LHigh 100-235Pro[facility]ica [facility] HospitalComment on above:Performed By: #### MAGALI FOLEY, 2-0 ####[facility] ([id number])[address] [address], [place] [address]lSLK Coag (PPP) [Time]on 69-20-3227qFGO Coag (Bld) [Time]47 s Xrnh50-66RpmOhkvbi [facility] HospitalComment on above:Performed By: #### 32463-2 ####[facility] ([id number])[address] [address] [place] [address]vWAE Coag (Bld) [Time]34 lCducub56-88GofNshbps Terrell HospitalComment on above:Performed By: #### 97926-6 ####[facility] ([id number])[address], [address] [place] [id number] Coag (Bld) [Time]36 s Thhonb24-04ZcoNndvuv Braggs HospitalComment on above:Performed By: #### 81256-6 ####[facility] ([id number])[address], [address] [id number] AND DIFFon 77-47-2345WILN FLUID COMMENT Interpretation--------NormalProMercer County Community Hospitalca Braggs HospitalComment on above: Result Comment: Reference values for this fluid type areundefined, as fluid accumulation isconsidered abnormal.Performed By: #### FALB, FAMY, FLD, FLIP, FTP, FTRIG, BFCT ####[facility] ([id number])[address] [address]FHBXN CLARITYCLEARNormalAccess [facility] Comment on above:Performed By: #### FALB, FAMY, FLD, FLIP, FTP, FTRIG, BFCT ####[facility] ([id number])[address] [address] [place] [id number] COLORYELLOWNormalProMarion Hospital HospitalComment on above:Performed By: #### FALB, FAMY, FLD, FLIP, FTP, FTRIG, BFCT ####[facility] ([id number])[address] [address] [place] [id number] MPOMIOZFBB60 % NormalProMercer County Community Hospitalca Braggs HospitalComment on above:Performed By: #### FALB, FAMY, FLD, FLIP, FTP, FTRIG, BFCT ####[facility] ([id number])[address], [address] [place] [id number] MESOTHELIAL8 %NormalProMedica Braggs HospitalComment on above:Performed By: #### FALB, FAMY, FLD, FLIP, FTP, FTRIG, BFCT ####[facility] ([id number])[address], [address] [place] [id number] CZTEMZALNVO05 %NormalProMedica Braggs HospitalComment on above:Performed By: #### FALB, FAMY, FLD, FLIP, FTP, FTRIG, BFCT ####[facility] ([id number])[address], [address] [place] [id number] RBC CT145 /uLNormalProMedica Braggs HospitalComment on above:Performed By: #### FALB, FAMY, FLD, FLIP, FTP, FTRIG, BFCT ####[facility] ([id number])[address], [address] [place] [id number] SPECIMEN TYPEPLEURAL FLUIDNormalProMercer County Community Hospitalca Braggs HospitalComment on above:Result Comment: RIGHT Performed By: #### FALB, FAMY, FLD, FLIP, FTP, FTRIG, BFCT ####[facility] ([id number])[address], [address] [place] [address] 35375BZSXTYHJWOB04 % NormalProMedica Braggs HospitalComment on above:Performed By: #### FALB, FAMY, FLD, FLIP, FTP, FTRIG, BFCT ####[facility] ([id number])[address] [address]QEMXSMSWK CELL CT556 /uLNormalProMercer County Community Hospitalca Braggs HospitalComment on above:Performed By: #### FALB, FAMY, FLD, FLIP, FTP, FTRIG, BFCT ####[facility] ([id number])[address], [address] [place] [address] 83613DTV AND AUTO DIFFon 72-10-9602XVOUUQLF BASOPHIL0.0 X10E9/L Normal0.0-0.2ProMedica Braggs HospitalComment on above:Performed By: #### CBCA, CMP, 46631-3 ####[facility] ([id number])[address] [address] [place] [address] 46083JRJKXJUE PRUNBWYCLF10.6 X10E9/LHigh1.5-6.6ProMarion Hospital HospitalComment on above:Performed By: #### CBCA, CMP, 23081-5 ####[facility] ([id number])[address] [address] [place] [address] ACANTHOCYTE1+AbnormalNONEProMedica Braggs HospitalComment on above:Performed By: #### CBCA, CMP, 77040-3 ####[facility] ([id number])[address] [address] [place] [address] 24438Fviehfqre/100 WBC (Bld)0.1 %NormalProMarion Hospital HospitalComment on above:Performed By: #### CBCA, CMP, 21451-3 ####[facility] ([id number])[address] [address] [place] [address]6781 Eosinophils (Bld) [#/Vol]0.0 10*3/uLNormal0.0-0.4[facility] Comment on above:Performed By: #### CBCA, CMP, 53417-1 ####[facility] ([id number])[address] [address]Wdaxrjtgnei/100 WBC (Bld)0.1 %NormalProMarion Hospital HospitalComment on above:Performed By: #### CBCA, CMP, 93455-1 ####[facility] ([id number])[address] [address]Fvbkqkdhyqq distribution width (RBC) [Ratio]16.8 %High 11.5-15.0ProMarion Hospital HospitalComment on above:Performed By: #### CBCA, CMP, 00876-1 ####[facility] ([id number])[address], [address], [place] [address]Ykbtriphhw (Bld) [Volume fraction]33.7 %Gqi74-20ZjfJtemen Braggs HospitalComment on above:Performed By: #### CBCA, CMP, 25233-0 ####[facility] ([id number])[address], [address] [address] Hemoglobin (Bld) [Mass/Vol]11.0 g/dLLow13.0-17.0ProMedica Braggs HospitalComment on above:Performed By: #### CBCA, CMP, 57400-6 ####[facility] ([id number])[address], [address], [place] [address]Qmwscdrrjrn (Bld) [#/Vol] 1.9 10*3/uLNormal1.0-3.5ProMedica Braggs HospitalComment on above:Performed By: #### CBCA, CMP, 15122-5 ####[facility] ([id number])[address], [address], [place] [address]Soozixfcnsm/100 WBC (Bld)8.1 %Normal ProMedica Braggs HospitalComment on above:Performed By: #### CBCA, CMP, 21829-0 ####[facility] ([id number])[address], [address], [place] [address]ASZ (RBC) [Entitic mass]30.0 stMcouna32-67ZqhClxcrh Braggs HospitalComment on above:Performed By: #### CBCA, CMP, 45957-1 ####[facility] ([id number])[address], [address], [place] [address]SZFA (RBC) [Mass/Vol]32.7 g/fAZbmlpf73-44CmoNxtice Braggs HospitalComment on above:Performed By: #### CBCA, CMP, 14903-0 ####[facility] ([id number])[address], [address], [place] [address]XTQ (RBC) [Entitic vol]92 rIKxxsmn85-545GezGrflie Braggs HospitalComment on above:Performed By: #### CBCA, CMP, 37177-0 ####[facility] ([id number])[address], [address] [address] Monocytes (Bld) [#/Vol]3.9 10*3/uLHigh0-0.9ProMedica Terrell HospitalComment on above:Performed By: #### CBCA, CMP, 64156-2 ####[facility] ([id number])[address], [address], [place] [address]Yoqqosfsj/100 WBC (Bld)16.5 %NormalProMercer County Community Hospitalca Braggs HospitalComment on above:Performed By: #### CBCA, CMP, 86355-3 ####[facility] ([id number])[address], [address], [place] [address]Qxdeozpvqzq/100 WBC (Bld)75.2 %NormalProMercer County Community Hospitalca Braggs HospitalComment on above:Performed By: #### CBCA, CMP, 10800-9 ####[facility] ([id number])[address] [address] [address] Platelet mean volume (Bld) [Entitic vol]7.9 fLNormal7-12ProMedica Braggs HospitalComment on above:Performed By: #### CBCA, CMP, 46183-7 ####[facility] ([id number])[address], [address] [address] Platelets (Bld) [#/Vol]475 10*3/bKSuvf526-440HndLvzpgu Terrell HospitalComment on above:Performed By: #### CBCA, CMP, 30643-0 ####[facility] ([id number])[address], [address] [place], [place] [address]GOQFQOHHMDCQW1+AbnormalNONE ProMencompass health rehabilitation hospital of shelby countya Braggs HospitalComment on above:Performed By: #### MAGALI FOLEY, 61326-3 ####[facility] ([id number])[address], [address], [place] [address]FEY COUNT3.67 X10E12/LLow4.10-5.70ProMercer County Community Hospitalca Braggs HospitalComment on above:Performed By: #### MAGALI FOLEY, 04709-6 ####[facility] ([id number])[address], [address] [place] [address]XRS (Bld) [#/Vol]23.4 10*3/uLHigh4.0-11.0ProMercer County Community Hospitalca Braggs HospitalComment on above:Performed By: #### MAGALI FOLEY, 18428-3 ####[facility] ([id number])[address], [address], [place] [address]DYTNMKIXVVQUP METABOLIC PANELon 13-54-1611Rkrzevc [Mass/Vol]2.1 g/dLLow3.2-5.3ProMedica Braggs HospitalComment on above:Performed By: #### MAGALI FOLEY, 21572-8 ####[facility] ([id number])[address], [address], [place] [address]DBO [Catalytic activity/Vol]93 U/LNormal 39-130ProMedica Braggs HospitalComment on above:Performed By: #### OG CMP, 79819-2 ####[facility] ([id number])[address], [address], [place] [address]SBK [Catalytic activity/Vol]22 U/LNormal0-40ProMedica Braggs HospitalComment on above:Performed By: #### OG CMP, 94213-3 ####[facility] ([id number])[address], [address], [place] [address]Kfltt gap [Moles/Vol]7 mmol/LNormal5-15ProMedica Terrell HospitalComment on above: Performed By: #### MAGALI FOLEY, 69533-8 ####[facility] ([id number])[address], [address], [place] [address]TAV [Catalytic activity/Vol]17 U/LNormal0-41ProMedica Terrell HospitalComment on above:Performed By: #### MAGALI FOLEY, 88781-4 ####[facility] ([id number])[address], [address], [place] [address]Bwhljibty [Mass/Vol]0.6 mg/dLNormal0.3-1.2 ProMedica Terrell HospitalComment on above:Performed By: #### MAGALI FOLEY, 65083-0 ####[facility] ([id number])[address], [address], [place] [address]Wzieeho [Mass/Vol]8.2 mg/dLLow8.5-10.5ProMedica Terrell HospitalComment on above:Performed By: #### MAGALI FOLEY, 52346-0 ####[facility] ([id number])[address], [address], [place] [address]Lricmvjn [Moles/Vol]103 mmol/THjsnlg16-050TaaEkkbrx Terrell HospitalComment on above:Performed By: #### MAGALI FOLEY, 29133-0 ####[facility] ([id number])[address], [address], [place] [address]YS8 [Moles/Vol]26 mmol/NJzbqcd91-09IzfPmoqci Terrell HospitalComment on above:Performed By: #### MAGALI FOLEY, 84771-9 ####[facility] ([id number])[address], [address], [place] [address] Creatinine [Mass/Vol]0.48 mg/dLLow0.60-1.30ProMedica Terrell HospitalComment on above:Result Comment: METHOD TRACEABLE TO IDMS STANDARDPerformed By: #### MAGALI FOLEY, 36739-0 ####[facility] ([id number])[address] [address], [place] [address]qTZJ (CKD-EPI) NON-RACE DEPENDENT>90Normal>59ProMarion Hospital HospitalComment on above:Result Comment: Reported eGFR is based on theCKD-EPI 2020 equation that doesnot use a race coefficient.Performed By: #### MAGALI FOLEY, 68227-9 ####[facility] ([id number])[address] [address], [place] [address]Yexdudd [Mass/Vol]115 mg/pAJzwk76-93MdwCodbav [place] [facility] Comment on above:Performed By: #### MAGALI FOLEY, 85001-7 ####[facility] ([id number])[address] [address], [place] [address]Tsafirjpn [Moles/Vol]4.3 mmol/LNormal3.5-5.0ProMar[facility] Hospital HospitalComment on above: Performed By: #### MAGALI FOLEY, 56817-5 ####[facility] ([id number])[address] [address] [place] [place], [place] [address]Yivghzb [Mass/Vol]4.7 g/dL Low6.0-8.0ProMarion Hospital HospitalComment on above:Performed By: #### MAGALI FOLEY, 25861-9 ####[facility] ([id number])[address] [address], [place] [address]Ikezky [Moles/Vol]136 mmol/ERnjjar761-813PrkFdawdt [place] HospitalComment on above:Performed By: #### MAGALI FOLEY, 55820-3 ####[facility] ([id number])[address] [address], [place] [address]Pfya nitrogen [Mass/Vol]11 mg/dLNormal5-27ProLicking Memorial HospitalComment on above: Performed By: #### CBCA, CMP, 32090-6 ####[facility] ([id number])[address] [place] [address], [address] [place] [address]Wnxopjwnyd 06-27-2023 CytologyNormalHolmes County Joel Pomerene Memorial HospitalComment on above:Result Comment: [employer] [facility] [address] [place] [address] Cytology ConsultationPatient Name:TORSTEN HAYWOOD:1955 (Age: 67)Gender:MTaken:06/27/2023eported:06/30/2023 16:47Physician(s):Fletcher Huston M.D. ([phone])Copy To:Thony Jacobs [facility] Centeression #:[id number]. Rec. #:[id number]: #[id number] Cytologic DiagnosisRight pleural fluid:No malignant cells identified.nxk/06/30/2023Interpretation performed at [facility] [place] [address], License number: [id number].Electronically Signed Out By Derek Shah MDClinical HistoryMass of lung (R91.8).Gross DescriptionReceived was 800 mL of yellow fluid unfixed labeled as [place], right pleural fluid .CytoLyt added in lab. 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 H&E, Non MONKEY BREEDER ThinPrepFee Code(s):1; 72665, 67689KJIRP ALBUMINon 88-54-3477ZPV SPECIMEN TYPE PLEURAL FLUIDNoOhioHealth Doctors HospitalComment on above:Result Comment: RIGHTPerformed By: #### FALB, FAMY, FLD, FLIP, FTP, FTRIG, BFCT ####[facility] ([id number])[address] [address], [place] [address]SWIQD ALBUMIN<1.5NormalProMarion Hospital HospitalComment on above:Result Comment: The reference interval and othermethod performance specifications areunavailable for this body fluid.Comparison of this result to serumor plasma is recommended. Performed By: #### FALB, FAMY, FLD, FLIP, FTP, FTRIG, BFCT ####[facility] ([id number])[address] [address] [place] [address]NSOCI AMYLASEon 13-68-7347QND SPECIMEN TYPEPLEURAL FLUIDNoOhioHealth Doctors HospitalComment on above:Result Comment: RIGHTPerformed By: #### FALB, FAMY, FLD, FLIP, FTP, FTRIG, BFCT ####[facility] ([id number])[address] [address]USPUY AMYLASE<10NormalProMarion Hospital HospitalComment on above:Result Comment: The reference interval and othermethod performance specifications areunavailable for this body fluid.Comparison of this result to serumor plasma is recommended.Performed By: #### FALB, FAMY, FLD, FLIP, FTP, FTRIG, BFCT ####[facility] ([id number])[address] [address]SXRDW CULTUREon 16-42-1349Bcvfnerm identified Aer cx Nom (Body fld)GRAM STAIN WHITE BLOOD CELLS PRESENT NO ORGANISMS SEEN ON CONCENTRATED SMEAR CULTURE RESULTS NO GROWTH 5 DAYSNoOhioHealth Doctors HospitalComment on above:Performed By: #### 610-6 ####[facility] ([id number])[address] [address]MDEBX LDHon 77-48-5894YKXHJ CCH289 U/LNormalProMarion Hospital HospitalComment on above:Result Comment: The reference interval and othermethod performance specifications areunavailable for this body fluid.Comparison of this result to serumor plasma is recommended.Performed By: #### FALB, FAMY, FLD, FLIP, FTP, FTRIG, BFCT ####[facility] ([id number])[address], [address] [place] [address] 200[address]CQ SPECIMEN TYPEPLEURAL FLUIDNoWayne Hospital HospitalComment on above:Result Comment: RIGHTPerformed By: #### FALB, FAMY, FLD, FLIP, FTP, FTRIG, BFCT ####[facility] ([id number])[address] [address]PIMUN LIPASEon 57-26-6314KRTBC LIPASE<3NoWayne Hospital HospitalComment on above:Result Comment: The reference interval and othermethod performance specifications areunavailable for this body fluid.Comparison of this result to serumor plasma is recommended. Performed By: #### FALB, FAMY, FLD, FLIP, FTP, FTRIG, BFCT ####[facility] ([id number])[address] [address]LCQYOT SPECIMEN TYPEEXCELSIOR SPRINGS [facility] FLUIDKindred Hospital DaytonComcorewell health greenville hospital on above:Result Comment: RIGHTPerformed By: #### FALB, FAMY, FLD, FLIP, FTP, FTRIG, BFCT ####[facility] ([id number])[address] [address] [place] [address]QSOOI T. PROTEINon 01-70-5657NODVQ TOT. PROTEIN2.7 g/dLNoWayne Hospital HospitalComment on above:Result Comment: The reference interval and othermethod performance specifications areunavailable for this body fluid.Comparison of this result to serumor plasma is recommended.Performed By: #### FALB, FAMY, FLD, FLIP, FTP, FTRIG, BFCT ####[facility] ([id number])[address], [address] [address]WI SPECIMEN TYPEPLEURAL FLUIDNormalProMedica Braggs HospitalComment on above:Result Comment: RIGHT Performed By: #### FALB, FAMY, FLD, FLIP, FTP, FTRIG, BFCT ####[facility] ([id number])[address], [address], [place] [address]MNALV TRIGLYCERIDEon 97-84-2212WFVMC HNSXOUWLBYXV23 mg/dLNormalProMarion Hospital HospitalComment on above:Result Comment: The reference interval and othermethod performance specifications areunavailable for this body fluid.Comparison of this result to serumor plasma is recommended.Performed By: #### FALB, FAMY, FLD, FLIP, FTP, FTRIG, BFCT ####[facility] ([id number])[address], [address] [place] [address]DQEL SPECIMEN TYPEPLEURAL FLUIDNormal ProMedica Braggs HospitalComment on above:Result Comment: RIGHTPerformed By: #### FALB, FAMY, FLD, FLIP, FTP, FTRIG, BFCT ####[facility] ([id number])[address], [address] [place] [address]Psotwgp (P herminio) [Moles/Vol] on 56-40-6230Dbdqqkq [Moles/Vol]2.1 mmol/LHigh0.4-2.0[facility] Comment on above:Performed By: #### 09727-5 ####[facility] ([id number])[address], [address], [place] [address]SXCVZDT W/REFLEX2.2 mmol/L High0.4-2.0[facility] HospitalComment on above:Performed By: #### 49082-5 ####[facility] ([id number])[address], [address] [place] [address]ZIRSETJ W/REFLEX1.3 mmol/LNormal0.4-2.0[facility] HospitalComment on above:Result Comment: Result did not trigger repeat Lactate,re-order if needed. Performed By: #### CBCA, CMP, 85354-1 ####[facility] ([id number])[address], [address] [place] [address]34[address]Mfqtcvv [Moles/Vol]1.9 mmol/LNormal0.4-2.0ProMarion Hospital HospitalComment on above:Performed By: #### 49448-3 ####[facility] ([id number])[address], [address] [place] [address] 513[address]PN CHEST 1 VWon 13-51-9815HF CHEST 1 VWNoOhioHealth Doctors HospitalaPTT Coag (PPP) [Time]on 14-53-0484gZKR Coag (Bld) [Time]34 sNormal 26-37ProLicking Memorial HospitalComment on above:Performed By: #### 52317-0 ####[facility] ([id number])[address] [address]JEK CULTURE(CONCENTRATED)on 26-38-6573Jaspvpmkqjurx sp identified Org specific cx Nom (Unsp spec)AFB SMEAR NO ACID FAST BACILLI (CONCENTRATED SMEAR) CULTURE RESULTS NO ACID FAST BACILLI ISOLATED IN 8 WEEKSKindred Hospital DaytonComment on above:Performed By: #### 543-9 ####[facility] ([id number])[address], [address] [address] AND DIFFon 39-85-0135UFRQ FLUID COMMENT Interpretation--------NormalProLicking Memorial HospitalComcorewell health greenville hospital on above:Result Comment: Reference values for this fluid type areundefined, as fluid accumulation isconsidered abnormal.Performed By: #### BFCT ####[facility] ([id number])[address] [address] [place] [address]RLQPW CLARITYBLOODYNormalProMarion Hospital HospitalComment on above:Performed By: #### BFCT ####[facility] ([id number])[address], [address], [place] [address]JBFSQ COLORREDNormalProMedica Braggs HospitalComment on above:Performed By: #### BFCT ####[facility] ([id number])[address], [address], [place] [address]CJQVC LYMPHOCYTE5 % NormalProMedica Braggs HospitalComment on above:Performed By: #### BFCT ####[facility] ([id number])[address], [place] [address]DDLUZ UQYWIXJQFVZ85 %NormalProMedica Braggs HospitalComment on above: Performed By: #### BFCT ####[facility] ([id number])[address] [facility], [address] [place] [address]QPATP RBC ZT61304 /uLNormalProMedica Braggs HospitalComment on above:Performed By: #### BFCT ####[facility] ([id number])[address], [address] [place] [address] 15052ZARST SPECIMEN TYPE BRONCHIAL WASHINGNormalProMercer County Community Hospitalca Braggs HospitalComment on above:Performed By: #### BFCT ####[facility] ([id number])[address], [address] [place] [address] 22147QENGYIZACZB7 %NormalProMedica Braggs HospitalComment on above:Performed By: #### BFCT ####[facility] ([id number])[address], [address], [place] [address]FFPMFCKMC CELL CT141 /uLNormalProMedica Braggs HospitalComment on above:Performed By: #### BFCT ####[facility] ([id number])[address], [address], [place] [address]DZE AND AUTO DIFFon 37-86-7740NHDNJBLB BASOPHIL0.0 X10E9/LNormal0.0-0.2ProMedica Braggs HospitalComment on above:Performed By: #### MAGALI FOLEY, 01820-6 ####[facility] ([id number])[address] [address] ABSOLUTE OSBCLMDBDW00.5 X10E9/LHigh1.5-6.6ProMercer County Community Hospitalca Braggs HospitalComment on above:Performed By: #### MAGALI FOLEY, 52372-8 ####[facility] ([id number])[address], [place] [address]Vkrfjmctv/100 WBC (Bld)0.1 %NormalProMarion Hospital HospitalComment on above:Performed By: #### MAGALI FOLEY, 00613-4 ####[facility] ([id number])[address] [address] [place] [address]Kxevpyraivy (Bld) [#/Vol]0.0 10*3/uLNormal0.0-0.4ProMarion Hospital HospitalComment on above:Performed By: #### MAGALI FOLEY, 17371-9 ####[facility] ([id number])[address] [address] [place] [address] 2000[address] Eosinophils/100 WBC (Bld)0.1 %NormalProMarion Hospital HospitalComment on above: Performed By: #### MAGALI FOLEY, 34516-5 ####[facility] ([id number])[address] [address] [place] [address]Sjeyhoeakwm distribution width (RBC) [Ratio]16.9 %High11.5-15.0ProMarion Hospital HospitalComment on above: Performed By: #### MAGALI FOLEY, 50497-9 ####[facility] ([id number])[address], [address] [place] [address]80[address]Qqhsdspujv (Bld) [Volume fraction]34.8 %Syc34-37MeqMewofz Braggs HospitalComment on above:Performed By: #### CBCTrang, CMP, 74269-7 ####[facility] ([id number])[address], [address] [place] [address] 296[address]Wkpinajvcv (Bld) [Mass/Vol]11.4 g/dLLow 13.0-17.0ProMercer County Community Hospitalca Braggs HospitalComment on above:Performed By: #### CBCA, CMP, 50589-1 ####[facility] ([id number])[address] [address] [place] [address] 95847Nktqouadssx (Bld) [#/Vol]2.0 10*3/uLNormal1.0-3.5ProMedica [facility]aggs HospitalComment on above:Performed By: #### CBCA, CMP, 81753-7 ####[facility] ([id number])[address], [address] [place] [address] 22458 Lymphocytes/100 WBC (Bld)10.6 %NormalProMarion Hospital HospitalComment on above: Performed By: #### CBCA, CMP, 43972-4 ####[facility] ([id number])[address], [address] [place] [address] [id number] (RBC) [Entitic mass] 30.1 ruPdmuey20-78EraKcxjbm [place] HospitalComment on above:Performed By: #### CBCA, CMP, 34060-4 ####[facility] ([id number])[address], [address] [place] [address] 71901HYDD (RBC) [Mass/Vol]32.9 g/yCFvriqp60-84RjuFgbtkq [place] HospitalComment on above:Performed By: #### CBCA, CMP, 60535-5 ####[facility] ([id number])[address], [address] [place] [address] 03047CAV (RBC) [Entitic vol]91 aBYbrppv91-815AvwZxczdt [place] HospitalComment on above: Performed By: #### CBCA, CMP, 18992-7 ####[facility] ([id number])[address], [address], [place] [address]Hlynmdiza (Bld) [#/Vol]4.1 10*3/uLHigh0-0.9ProMedica [facility]rell HospitalComment on above:Performed By: #### CBCA, CMP, 53635-9 ####[facility] ([id number])[address], [address], [place] [address]Xdolywxmf/100 WBC (Bld)22.2 %NormalProMedica Terrell HospitalComment on above:Performed By: #### CBCA, CMP, 83472-0 ####[facility] ([id number])[address], [address] [address] Neutrophils/100 WBC (Bld)67.0 %NormalProMedica Terrell HospitalComment on above: Performed By: #### CBCA, CMP, 82837-0 ####[facility] ([id number])[address], [address], [place] [address]Zqdweuyi mean volume (Bld) [Entitic vol]8.1 fLNormal7-12ProMedica [facility]rell HospitalComment on above:Performed By: #### CBCA, CMP, 02306-8 ####[facility] ([id number])[address], [address], [place] [address]Dvcyuayvd (Bld) [#/Vol]483 10*3/uLHigh 150-450ProMedica Terrell HospitalComment on above:Performed By: #### CBCA, CMP, 09999-5 ####[facility] ([id number])[address], [address] [place] 40685BULAJUZHPKRUR1+AbnormalNONEProMedica Terrell HospitalComment on above:Performed By: #### MAGALI FOLEY, 67947-2 ####[facility] ([id number])[address], [address] [place] [address] 35324QHX COUNT3.80 X10E12/LLow 4.10-5.70ProMedica Terrell HospitalComment on above:Performed By: #### MAGALI FOLEY, 89784-0 ####[facility] ([id number])[address], [address] [place] [address] 34964YIS (Bld) [#/Vol]18.7 10*3/uLHigh4.0-11.0ProMedica Terrell HospitalComment on above:Performed By: #### MAGALI FOLEY, 86626-5 ####[facility] ([id number])[address], [address] [place] [address] 54552 COMPREHENSIVE METABOLIC PANELon 75-50-7975Qeexhcr [Mass/Vol]2.1 g/dLLow3.2-5.3 Pro[facility]ica Terrell HospitalComment on above:Performed By: #### MAGALI FOLEY, 31300-6 ####[facility] ([id number])[address], [address] [place] [address] 57850JTO [Catalytic activity/Vol]105 U/PUoylty66-554GbrKnaznk [facility] Hospital Comment on above:Performed By: #### MAGALI FOELY, 56138-3 ####[facility] ([id number])[address], [address], [place] [address]LRM [Catalytic activity/Vol]29 U/LNormal0-40ProMedica Terrell HospitalComment on above:Performed By: #### MAGALI FOLEY, 15163-0 ####[facility] ([id number])[address], [address] [place] [address], [place] [address]Czthg gap [Moles/Vol]7 mmol/LNormal5-15 Pro[facility]ica Terrell HospitalComment on above:Performed By: #### MAGALI FOLEY, 08573-7 ####[facility] ([id number])[address], [address], [place] [address]OFJ [Catalytic activity/Vol]34 U/LNormal0-41[facility] Comment on above:Performed By: #### MAGALI FOLEY, 04119-7 ####[facility] ([id number])[address], [address], [place] [address]Urtwoconp [Mass/Vol]0.7 mg/dLNormal0.3-1.2PPomerene Hospital HospitalComment on above: Performed By: #### MAGALI FOLEY, 38738-1 ####[facility] ([id number])[address] [address], [place] [address]Ffxicvd [Mass/Vol]8.0 mg/dL Low8.5-10.5PPomerene Hospital HospitalComment on above:Performed By: #### MAGALI FOLEY, 34796-3 ####[facility] ([id number])[address], [address], [place] [address]Ctilymlu [Moles/Vol]101 mmol/OGqrjmr86-062KexPmgjrs [place] HospitalComment on above:Performed By: #### MAGALI FOLEY, 01901-8 ####[facility] ([id number])[address] [address], [place] [address]ZD4 [Moles/Vol]28 mmol/DAqfebf95-51PcvPamthy [place] HospitalComment on above: Performed By: #### OG CMP, 43951-2 ####[facility] ([id number])[address] [address], [place] [address]Qppdyjwcox [Mass/Vol]0.50 mg/dLLow0.60-1.30Pro[facility] Hospital HospitalComment on above:Result Comment: METHOD TRACEABLE TO IDMS STANDARDPerformed By: #### MAGALI FOLEY, 95645-5 ####[facility] ([id number])[address] 300[facility], [place] [address]bCDA (CKD-EPI) NON-RACE DEPENDENT>90Normal>59ProL[facility] Comment on above:Result Comment: Reported eGFR is based on theCKD-EPI 2020 equation that doesnot use a race coefficient.Performed By: #### MAGALI FOLEY, 72524-8 ####[facility] ([id number])[address] [address], [place] [address]Eqbwenf [Mass/Vol]98 mg/jKBijnxi24-78ElhQeteie [place] HospitalComment on above:Performed By: #### MAGALI FOLEY, 96645-5 ####[facility] ([id number])[address] [address] [address] Potassium [Moles/Vol]3.9 mmol/LNormal3.5-5.0Pro[facility] HospitalComment on above:Performed By: #### MAGALI FOLEY, 77183-0 ####[facility] ([id number])[address] [address], [place] [address]Ihevaqt [Mass/Vol]4.8 g/dL Low6.0-8.0Pro[facility] Hospital HospitalComment on above:Performed By: #### MAGALI FOLEY, 14025-7 ####[facility] ([id number])[address] 300[facility] [place], [place] [address]Bfzusg [Moles/Vol]136 mmol/NTczuyb568-078OwgEiobif [place] HospitalComment on above:Performed By: #### MAGALI FOLEY, 07750-4 ####[facility] ([id number])[address] [address], [place] [address]Wsfh nitrogen [Mass/Vol]11 mg/dLNormal5-27[facility] HospitalComment on above: Performed By: #### OG [facility], 31373-2 ####[facility] ([id number])[address] [place] [address], [address] [place] [address] 649[address]Sjmhknudih 06-26-2023 CytologyNormalProMedica Trinity Health SystemComment on above:Result Comment: [facility] [address] [place] [address] Cytology ConsultationPatient Name:TORSTEN HAYWOOD:1955 (Age: 67)Gender:MTaken:06/26/2023eported:06/29/2023 16:03Physician(s):Harvinder Berg M.D. ([phone])Copy To:MONIE Keen M.D.Brian E. Tasma, [facility] Medical Centeression #:[id number]. Rec. #:[id number]: #[id number] Cytologic Diagnosis1. 11L, fine needle aspirate:No malignant cells identified.Lymphocytes and pigmented macrophages present.2. 4L, fine needle aspirate:No malignant cells identified.Lymphocytes present.3. Station 7, fine needle aspirate:No malignant cells identified.Lymphocytes and pigmented macrophages present.4. 4R, fine needle aspirate:No malignantcells identified.Lymphocytes and pigmented macrophages present.5. Right upper lobe mass, fine needle aspirate:No malignant cells identified.Benign bronchial cells.Pigmented macrophages.6. Bronchial wa shing:No malignant cells identified.Benign bronchial cells.ao/06/29/2023Interpretation performed at [facility], [address] [place] [address], License number: [id number].Electronically Signed Out By Lamont Phelps MDAdditional Report(s): Flow Cytometry-Surg/BM/NG Date Reported: 06/29/2023Immunophenotypic analysis of the lymphoid cells demonstrates a hypocellular specimen with a predominant population of phenotypically unremarkable T-cells and rare polyclonal B-cells. No monoclonal lymphoid population is detected.Immunophenotyping antibodies tested: CD3, CD5, CD7, CD10, CD19, CD20, CD23, CD45, [place], and Lambda.Immunophenotyping Comment:Immunophenotyping has been used in this diagnostic evaluation. This test was developed and its performance characteristics determined by the [facility] Department. It has not been [...] to perform high-complexity clinical testing.Electronically Signed OutDerek Shah [facility] – VINITAlinical HistoryMass of lung [R91.8].Rapid On Site Interpretation1. 11L, fine needle aspirate: Pass 1: Inadequate. Pass 2-4: Negative. Pass 5: Inadequate. Mostly blood.2. 4L, fine needle aspirate: Pass 1: Inadequate. Pass 2: Atypical. Pass 3: Inadequate. Pass 4: Inadequate. Blood. Pass 5: Negative. Lymphocytes and blood.3. Station 7, fine needle aspirate: Pass 1: Hypocellular. Blood and scattered lymphocytes. Pass2: Blood and lymphocytes. Pass 3: Blood and rare lymphocytes.4. 4R, fine needle aspirate: Pass 1: Hy pocellular. Lymphocytes and blood. Pass 2: Hypocellular. Lymphocytes and blood.5. Right upper lobe mass, fine needle aspirate: Pass 1: Inadequate. Pass 2: Inadequate. Pass 3: Negative. Dr. Phelps Interpretation provided at [facility], [address] [place] [address].Gross Description1. Prepared in Endoscopy were 10 slides [...] placed in formalin at 15:00 with a totalformalin fixation time of 10 hours.3. Prepared in [...] of cloudy red fluid unfixed labeled as Yobany, bronchial washings . CytoLyt added in lab. 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- partridge farmer (M), Level 2 H&E, Slides Made x 45: Right upper lobe mass, fine needle aspirate Level 1 H&E, Level 2 unstained, Level 3 unstained, Level 4 unstained, Level 5 unstained, Level 6 unstained, Level 7 unstained, Level 8 unstained, Level 9 unstained, Level 10 H&E, Slides Made x 66: Bronchial washing 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), Level 2 H&E, Non MONKEY [employer]EDER ThinPrepFee Code(s):1; 36033, 45559, 886802; 27516, 28485, 640488; 12646, 10168, 241202; 54063, 59824, 783117; 20398, 84899, 200455; 57423, 70910, 65942HQUXNZ CULTUREon 95-02-4354Urqsdd identified Cx Nom (Unsp spec)FUNGAL SMEAR NO FUNGAL ELEMENTS SEEN ON DIRECT SMEAR CULTURE RESULTS NO FUNGUS ISOLATED AFTER 4 WEEKSNoOhioHealth Doctors HospitalComment on above: Performed By: #### 580-1 ####[facility] ([id number])[address] [place] [address] 28546Mtps cytometry specialist review Nasir (Unsp spec) [Interp]on 53-09-2586FNUV CYTOMETRY TISSUE/FLUID, NON CSF/NON BALSEE SEPARATE REPORT, REVIEWED BY PATHOLOGISTNoOhioHealth Doctors HospitalComment on above:Performed By: #### 42682-3 ####[facility] ([id number])[address] [place] [address] [place] [address] 95109DPIIA RESPIRATORY CULTUREon 39-73-5204Nfmqdzpx identified Respiratory culture Nom (Sput)GRAM STAIN 10 to 24 WHITE BLOOD CELLS/LPF 0 to 1 SQUAMOUS EPITHELIAL CELLS/LPF 0 CILIATED EPITHELIAL CELLS/LPF NO ORGANISMS SEEN CULTURE RESULTS NO GROWTH 2 DAYSNoOhioHealth Doctors HospitalComment on above:Performed By: #### 624-7 ####[facility] ([id number])[address] [place] [address] [place] [address] 576[address]Ebcfpqi (P herminio) [Moles/Vol]on 34-98-3221CLMEDTT W/REFLEX3.1 mmol/LHigh0.4-2.0[facility] HospitalComment on above:Performed By: #### 94979-8 ####[facility] ([id number])[address] [place] [address] [place] [address] 87470RSDYCMJ W/REFLEX1.6 mmol/LNormal0.4-2.0ProLicking Memorial HospitalComment on above:Result Comment: Result did not trigger repeat Lactate,re-order if needed.Performed By: #### 17246-0 ####[facility] ([id number])[address], [address] [place] [address] 84045OSYFHQR W/REFLEX 1.2 mmol/LNormal0.4-2.0ProLicking Memorial HospitalComment on above:Result Comment: Result did not trigger repeat Lactate,re-order if needed.Performed By: #### CBCA, CMP, 59567-6 ####[facility] ([id number])[address], [address] [place] [address] 69796Y. pneumoniae DNA DENIS+probe Ql (Unsp spec)on 06-26-2023 M PNEUMONIAE DNA PCRSee BelowNormalHolmes County Joel Pomerene Memorial HospitalComcorewell health greenville hospital on above: Result Comment: NOTETEST RESULT FLAG UNIT REF.RANGE Specimen Source See BelowSPECIMEN SOURCE (MYCPCR) BRONCHIAL WASHINGMYCOPLASMA PNEUM DNA Not DetectedNOT DETECTED - A negative result does not ruleout the presence of PCR inhibitors in the patient specimenor assay specific nucleic acid in concentrations below thelevel of detection by the assay.INTERPRETIVE INFORMATION: Mycoplasma pneumoniae by PCRThis test was developed and its performance characteristicsdetermined by [facility]. It has not been cleared orapproved by the [place] Food and Drug Administration. This testwas performed in a CLIA certified laboratory and isintended for clinical purposes.Performed By: [facility] [place] [address]Tftzwuituz Director: Kiko Coon MD, PhDCLIA Number: [id number]: SPUTUMPerformed By: #### 19842-2 ####[facility] ([id number])[address] [place] [address], [address] [place] [address] 46786Rgfhkmee Pathologyon 90-35-7979Qwytkcjt PathologyNormalHolmes County Joel Pomerene Memorial HospitalComment on above: Result Comment: [facility] [address] [place] [address] Surgical Pathology ConsultationPatient Name:TORSTEN HAYWOOD:1955 (Age: 67)Gender:MTaken:06/26/2023eported:06/30/2023hysician(s):Franky Rasmussen MD ([phone])Copy To:HAMMAD SALINAS M.D. Rec. #:[id number]: #[id number] Pathologic DiagnosisRight bronchus intermedius biopsy: Blood clot and fragments ofbenign bronchial mucosa showing mild acute and chronic [...] not correlate with the clinical impression. Report Electr onically Signed Outao/06/30/2023ndtomasz Phelps MDInterpretation performed at [facility], [address] [place] [address], [place] [address], License number: [id number].Clinical HistoryMass of lung.Gross DescriptionReceived in formalin, labeled YOBANY, right bronchus intermedius biopsy is a 0.8 x 0.4 x 0.1 cm aggregate of toro-cadena, feathery soft tissue fragments admixed with clotted blood. The specimen isfiltered and entirely submitted in one cassette. (1, ns, [id number], m6) MWmxw/06/26/2023GRSpecimen(s) Received Right bronchus intermedius biopsyFee Codes(s):1; 77462, 02290(2)XR CHEST 1 VWon 57-35-4268WO CHEST 1 VW NormalProLicking Memorial HospitalaPTT Coag (PPP) [Time]on 92-41-3043wGRN Coag (Bld) [Time]37 lSpqmlh71-84EwxYfaqtnLicking Memorial HospitalComment on above:Performed By: #### 29102-2 ####[facility] ([id number])[address], [address] [place] [address] 20794KMJPB CULTUREon 16-56-4433Aakmedjr identified Aer cx Nom (Bld)CULTURE RESULTS NO GROWTH 5 DAYSNormalHolmes County Joel Pomerene Memorial HospitalBacteria identified Aer cx Nom (Bld)CULTURE RESULTS NO GROWTH 5 DAYSNormalAccess Hospital Dayton HospitalCBC AND AUTO DIFFon 06-25-2023 ABSOLUTE BASOPHIL0.1 X10E9/LNormal0.0-0.2Pro[facility] Health SystemComment on above:Performed By: #### CBCA, CMP, 1987-07, 30668-5, 79813-4, 72753-2 ####[facility] ([id number])[address], [address] [place] [address]05[address] ABSOLUTE KOEQIGVVNG38.2 X10E9/LHigh1.5-6.6[facility] HospitalComment on above:Performed By: #### CBCA, CMP, 1987-07, 37573-4, 45939-0, 72365-7 ####[facility] ([id number])[address], [address] [place] [address] 51593 Basophils/100 WBC (Bld)0.4 %NormalProLicking Memorial HospitalComment on above: Performed By: #### CBCA, CMP, 1987-07, 25476-9, 55840-8, 32579-2 ####[facility] ([id number])[address], [address] [place] [address] 43061 Eosinophils (Bld) [#/Vol]0.0 10*3/uLNormal0.0-0.4[facility] Comment on above:Performed By: #### CBCA, CMP, 1987-07, 99863-9, 93844-5, 45904-7 ####[facility] ([id number])[address], [address] [place] [address] 75898Ihfvaquccxb/100 WBC (Bld)0.2 %NormalProMedica Braggs HospitalComment on above:Performed By: #### CBCA, CMP, 1987-07, 99230-3, 72385-5, 58965-5 ####[facility] ([id number])[address], [address] [place] [address] 66361 Erythrocyte distribution width (RBC) [Ratio]16.8 %High11.5-15.0ProMedica Braggs HospitalComment on above:Performed By: #### CBCA, CMP, 1987-07, 10558-1, 84854-9, 93505-6 ####[facility] ([id number])[address] [address] [place] [address] 95876Josanwmopi (Bld) [Volume fraction]34.8 %Usc35-32NxzHghbcs Braggs HospitalComment on above:Performed By: #### CBCA, CMP, 1987-07, 67900-9, 98739-4, 57029-7 ####[facility] ([id number])[address] [address] [place] [address] 70104Pglwjuxzur (Bld) [Mass/Vol]11.8 g/dLLow13.0-17.0 Pro[facility] Braggs HospitalComment on above:Performed By: #### CBCA, CMP, 1987-07, 02881-1, 66396-0, 76703-1 ####[facility] ([id number])[address] [address] [place] [address] 42714Uhlphlaafgn (Bld) [#/Vol]1.9 10*3/uLNormal 1.0-3.5ProMedica Braggs HospitalComment on above:Performed By: #### CBCA, CMP, 1987-07, 98169-1, 61094-8, 40707-3 ####[facility] ([id number])[address], [address] [place] [address] 65087Wgkunogjfda/100 WBC (Bld)9.0 % NormalProMedica Braggs HospitalComment on above:Performed By: #### CBCA, CMP, 1987-07, 29561-3, 81478-4, 21295-0 ####[facility] ([id number])[address], [address] [place] [address] 12572NXJ (RBC) [Entitic mass]30.4 boNwdrpm49-60JpfTazmrc Braggs HospitalComment on above:Performed By: #### CBCA, CMP, 1987-07, 38809-3, 01347-1, 17514-8 ####[facility] ( [id number])[address], [address] [place] [address] 01502URTO (RBC) [Mass/Vol]33.8 g/dL Cpapbh08-88OdcTnqall Braggs HospitalComment on above:Performed By: #### CBCA, CMP, 1987-07, 77623-9, 51349-5, 48075-5 ####[facility] ([id number])[address], [address] [place] [address] 37389MTJ (RBC) [Entitic vol]90 fL Wvyvio18-391SrgYouswk [facility]aggs HospitalComment on above:Performed By: #### CBCA, CMP, 1987-07, 73300-4, 54499-9, 12535-9 ####[facility] ([id number])[address] [address] [place] [address] 86391Lrndgfdqm (Bld) [#/Vol]4.2 10*3/uLHigh0-0.9ProMedica Braggs HospitalComment on above:Performed By: #### CBCA, CMP, 1987-07, 03055-2, 30008-6, 19914-1 ####[facility] ([id number])[address], [address], [place] [address]Ccghqugwp/100 WBC (Bld)19.6 %NormalProMedica Terrell HospitalComment on above:Performed By: #### CBCA, CMP, 1987-07, 84880-2, 54990-3, 23214-0 ####[facility] ([id number])[address], [address], [place] [address]Rdtdlzxdgge/100 WBC (Bld)70.8 %NormalProMedica Terrell HospitalComment on above:Performed By: #### CBCA, CMP, 1987-07, 36017-6, 34102-1, 88829-4 ####[facility] ([id number])[address], [address], [place] [address]Gkzbzbqr mean volume (Bld) [Entitic vol]8.1 fLNormal7-12ProMedica Terrell HospitalComment on above:Performed By: #### CBCA, CMP, 1987-07, 57409-1, 16993-7, 30803-0 ####[facility] ([id number])[address], [address], [place] [address]Vqizpewuk (Bld) [#/Vol]468 10*3/gTAofl410-601RhvFtlrhp Terrell HospitalComment on above:Performed By: #### CBCA, CMP, 1987-07, 09102-0, 27361-6, 43825-4 ####[facility] ([id number])[address], [address], [place] [address]BSODNYQCESKSJ7+ AbnormalNONEProMedica Terrell HospitalComment on above:Performed By: #### CBCA, CMP, 1987-07, 46268-8, 31502-1, 73581-4 ####[facility] ([id number])[address], [address], [place] [address]XVS COUNT3.87 X10E12/LLow 4.10-5.70ProLicking Memorial HospitalComment on above:Performed By: #### CBCTrang, CMP, 1987-07, 99122-9, 23961-3, 20967-6 ####[facility] ([id number])[address], [address], [place] [address]FBL (Bld) [#/Vol]21.5 10*3/uL High4.0-11.0ProLicking Memorial HospitalComment on above:Performed By: #### OG, CMP, 1987-07, 86080-8, 57126-7, 19260-5 ####[facility] ([id number])[address], [address] [place], [place] [address]XEHFELSZUPJTQ METABOLIC PANEL on 67-13-8816Slcetfq [Mass/Vol]2.2 g/dLLow3.2-5.3PHolmes County Joel [facility] Hospital Comment on above:Performed By: #### OG, CMP, 1987-07, 07026-0, 24216-6, 27866-5 ####[facility] ([id number])[address], [place] [address]CZR [Catalytic activity/Vol]107 U/BZmbqmx02-254HitRvhjwaHolmes County Joel [facility]omerene [facility] Hospital Comment on above:Performed By: #### CBCA, CMP, 1987-07, 31209-2, 12391-6, 23169-5 ####[facility] ([id number])[address], [place] [address]JPB [Catalytic activity/Vol]24 U/LNormal0-40[facility] Comment on above:Performed By: #### CBCA, CMP, 1987-07, 94431-4, 45666-3, 70725-2 ####[facility] ([id number])[address], [address] [place], [place] [address]Jishk gap [Moles/Vol]8 mmol/LNormal5-15ProMedica Terrell HospitalComment on above:Performed By: #### OG, CMP, 1987-07, 88348-3, 43958-3, 12956-9 ####[facility] ([id number])[address], [address], [place] [address]MTO [Catalytic activity/Vol]21 U/LNormal0-41ProMedica Terrell HospitalComment on above:Performed By: #### CBCA, CMP, 1987-07, 46486-1, 47432-6, 53554-2 ####[facility] ([id number])[address] [address] Bilirubin [Mass/Vol]0.9 mg/dLNormal0.3-1.2ProMedica Terrell HospitalComment on above:Performed By: #### MAGALI FOLEY, 1987-07, 52446-3, 43202-6, 46657-3 ####[facility] ([id number])[address], [address] [address] Calcium [Mass/Vol]7.9 mg/dLLow8.5-10.5ProMedica Terrell HospitalComment on above: Performed By: #### MAGALI FOLEY, 1987-07, 55982-5, 32193-4, 18536-9 ####[facility] ([id number])[address], [address], [place] [address] Chloride [Moles/Vol]100 mmol/QUcdvvt28-206FmwAkglau Terrell HospitalComment on above:Performed By: #### CBCA, CMP, 1987-07, 36394-8, 74959-2, 22533-6 ####[facility] ([id number])[address], [address], [place] [address]WE9 [Moles/Vol]27 mmol/DEeaaql81-13BvtYcczjf Terrell HospitalComment on above: Performed By: #### CBCA, CMP, 1985-07, 88467-4, 36921-1, 98314-5 ####[facility] ([id number])[address] [address] [address] Creatinine [Mass/Vol]0.55 mg/dLLow0.60-1.30[facility] HospitalComment on above:Result Comment: METHOD TRACEABLE TO IDMS STANDARDPerformed By: #### MAGALI FOLEY, 1985-07, 09577-9, 16935-6, 65525-7 ####[facility] ([id number])[address] [address]mWLF (CKD-EPI) NON-RACE DEPENDENT>90Normal>59Pro[facility] HospitalComment on above:Result Comment: Reported eGFR is based on theCKD-EPI 2020 equation that doesnot use a race coefficient.Performed By: #### MAGALI FOLEY, 1985-07, 67523-5, 29619-5, 84412-5 ####[facility] ([id number])[address] [address]Zijlvou [Mass/Vol]98 mg/jWJnbeac39-84WosRobtba [place] HospitalComment on above:Performed By: #### MAGALI FOLEY, 1985-07, 39189-5, 30196-3, 18477-7 ####[facility] ([id number])[address] [address] Potassium [Moles/Vol]3.9 mmol/LNormal3.5-5.0[facility] HospitalComment on above:Performed By: #### MAGALI FOLEY, 1985-07, 90013-4, 10870-9, 30501-7 ####[facility] ([id number])[address] [address] Protein [Mass/Vol]5.0 g/dLLow6.0-8.0[facility] HospitalComment on above: Performed By: #### MAGALI FOLEY, 1985-07, 98527-6, 28889-9, 76937-9 ####[facility] ([id number])[address] [address] Sodium [Moles/Vol]135 mmol/EFdkxwa590-564BmmJuoxep [place] HospitalComment on above:Performed By: #### MAGALI FOLEY, 1985-07, 43609-7, 53708-3, 09092-9 ####[facility] ([id number])[address], [address] [place] [address]Coui nitrogen [Mass/Vol]18 mg/dLNormal5-27[facility] HospitalComment on above: Performed By: #### MAGALI FOLEY, 1985-07, 09918-9, 51963-6, 69593-5 ####[facility] ([id number])[address], [address] [place] [address] 50185DYL [Mass/Vol]on 06-25-2023 REACTIVE JQCIIJF62.0 mg/dLHigh0.000-0.744PHolmes County Joel Pomerene Memorial HospitalComment on above:Performed By: #### MAGALI FOLEY, 1985-07, 76188-6, 27872-8, 98717-5 ####[facility] ([id number])[address] [address] [place] [address] 65410PMO A1C (GLYCO-HGB)on 78-65-9706Xgisggl [Mass/Vol]143 mg/dLNormalProMarion Hospital HospitalComment on above:Performed By: #### MAGALI FOLEY, 1985-07, 34650-4, 12848-4, 80210-1 ####[facility] ([id number])[address], [address] [place] [address] 35246XmP0d (Bld) [Mass fraction]6.6 %High4.4-5.6ProMarion Hospital HospitalComment on above:Result Comment: NOTE ADA Guidelines Result HgbA1c Normal : less than 5.7 % Prediabetes : 5.7 % to 6.4 % Diabetes : > 6.4 %Use with caution in patients with abnormal hemoglobin variants asthe half-life of red blood cells and in vivo glycation rates areaffected.Performed By: #### CBCA, CMP, 1985-, 06281-1, 02341-2, 82912-7 ####[facility] ([id number])[address] 28692OZBMBQWUTA URINE AGon 06-25-2023L. pneumophila Ag IA Ql (U)LEGIONELLA URINE AG Negative (qualifier value) NEGATIVE FOR L.PNEUMOPHILA SEROGROUP 1 ANTIGENNormalHolmes County Joel Pomerene Memorial Hospital Comment on above:Performed By: #### 6447-7, 32858-4 ####[facility] ([id number])0 [facility] [address] [place] [address] 94319Oyubuvp (P herminio) [Moles/Vol]on 91-22-4190IIEVGFH W/REFLEX2.0 mmol/LNormal0.4-2.0[facility] HospitalComment on above:Result Comment: Result did not trigger repeat Lactate,re-order if needed.Performed By: #### 30641-2 ####[facility] ([id number]) [facility] [address] [place] [address] 88565Oainsuj [Moles/Vol]1.5 mmol/LNormal0.4-2.0[facility] HospitalComment on above: Performed By: #### 45463-4 ####[facility] ([id number])[address] [place] [address] [place] [address] 98454CSEGPRF W/REFLEX2.6 mmol/LHigh0.4-2.0 ProMedicKettering Health HamiltonComment on above:Performed By: #### 78001-7 ####[facility] ([id number])[address], [address] [place] [address] LACTATE W/REFLEX1.3 mmol/LNormal0.4-2.0ProLicking Memorial HospitalComment on above:Result Comment: Result did not trigger repeat Lactate,re-order if needed. Performed By: #### MAGALI FOLEY, 1985-07, 91875-9, 23832-4, 80574-9 ####[facility] ([id number])[address], [address] [place] [address] 73964FZPX PCR NASALon 65-39-8677TPNX DNA DENIS+probe Ql (Unsp spec)NegativeNormalNEG [facility] HospitalComment on above:Performed By: #### 54782-5 ####[facility] ([id number])[address], [address] [place] [address] 37053 Natriuretic peptide B [Mass/Vol]on 72-00-5203Fhklacxckce peptide B (Bld) [Mass/Vol]36 pg/mLNormal<100.0ProLicking Memorial HospitalComment on above: Performed By: #### MAGALI FOLEY, 1985-07, 68183-5, 28438-2, 70404-4 ####[facility] ([id number])[address], [address] [place] [address] Procalcitonin IA [Mass/Vol]on 85-13-0828DWWBVKZERTIOL3.19 ng/mLHigh<0.05 [facility] HospitalComment on above:Result Comment: NOTE<0.50 ng/mL - Low risk of severe sepsis and/or septic shock.<2.00 ng/mL -Recommend retesting within 6-24 hours.>2.00 ng/mL - High risk of sepsis and/or septic shock. Performed By: #### MAGALI FOLEY, 1985-07, 66748-7, 29164-8, 18201-8 ####[facility] ([id number])[address], [address], [place] [address]X PNEUMONIAE AG Uon 06-25-2023S. pneumoniae Ag Ql (U)NegativeNormalNEGProMedica Braggs HospitalComment on above:Performed By: #### 6447-7, 35830-2 ####[facility] ([id number])[address], [address] [address] URINALYSISon 08-83-9732Pmcqbvvyr Ql (U)NegativeNormalNEGProMedica Terrell HospitalBLOOD/HGBNegativeNormalNEGProMedica Terrell HospitalColor (U)YELLOWNormal YELLOWProMedica Terrell HospitalGlucose Ql (U)NegativeNormalNEGProMedica Terrell HospitalKetones Ql (U)NegativeNormalNEGProMedica Trinity Health SystemLeukocyte esterase Test strip Ql (U)NegativeNormalNEGProMedica Braggs HospitalMUCOUS PRESENTAbnormalNONEProMedRegency Hospital Toledo HospitalNitrite Ql (U)NegativeNormalNEG ProMedica Braggs HospitalpH (U)6.0 [pH]Normal5.0-8.5ProMedRegency Hospital [facility] Hospital Protein Ql (U)30 mg/dLAbnormalNEGProMedica Braggs HospitalR.B.CELLS3 /hpfNormal 0-5PSelect Medical Specialty Hospital - Akronpecific gravity (U) [Rel density]1.046High 1.003-1.035ProMedica Terrell HospitalSQUAMOUS EPITHELIUM<4Xhsxse7-8GneItomss Toledo HospitalTURBIDITYCLEARNormalCLEARProMedica Terrell HospitalUrobilinogen Qn (U)4 {Alem'U}/dLHigh<1.1ProMedRegency Hospital Toledo HospitalW.B.CELLS2 /hpfNormal0-5 ProMedica Trinity Health SystemURINE CULTUREon 21-60-6270Ozcifnmn identified Cx Nom (U)CULTURE RESULTS NO GROWTH AT <1000 CFU/mLNormalProMedica Braggs HospitalComment on above: Performed By: #### 630-4 ####[facility] ([id number])[address], [address] [address]gOWV Coag (PPP) [Time]on 13-64-5584cPRV Coag (Bld) [Time]37 yErfcsn78-94YipGjnlas Trinity Health SystemComment on above:Performed By: #### 10338-2 ####[facility] ([id number])[address], [place] [address]Wlaxbogqgzhqwlwivq 60-69-4521Ntiinlgycvceakue [id number]#1.00TIFFirelands Regional Medical Center South CampusConsultation Noteon 01-20-6633Jvqdarznhixr Note [id number]#1.00[facility] HospitalAmbulatory Visit Summaryon 69-50-7562Tdsvniuyvj Visit Summary TORSTEN HAYWOOD :1955 Visit Date:06/04/2023 Ambulatory Visit Instructions Your Diagnosis Congestive heart failure Factor V Leiden HTN (hypertension) BMI 31.0-31.9,adult Class 1 obesity due to excess calories in adult Nonsmoker Hx of CABG Tubular adenoma of colon Screening PSA (prostate specific antigen) Your Care Team Attending Physician - Antoine Hobbs MD Primary Care Physician - Antoine Hobbs MD This Is Your Medications List [...] 2023 7:00 AM EDT With: Yfn ESCOBEDO, Antoine Avila Where: [facility] [address] [place] [address]- \.br\ Medications\.br\ What How Much When Instructions\.br\ Changed bumetanide (bumetanide 1 mg Tab) 1 [...] 2 Tablets By Mouth Every day Contact prescribingphysician if questions or concerns \.br\ Unchanged potassium chloride (potassium chloride 20 mEq ERTab) 1 Tablets By Mouth Every day Contact prescribing physician if questions or concerns \.br\ Unchanged sacubitril-valsartan (Entresto 24 mg-26 mg oral tablet) 1 Tablets By Mouth 2 times a day Contact prescribing physician if questions or concerns \.br\ Unchanged sildenafil (sildenafil 20 mg oral tablet) 1 Tablets By Mouth Every day as needed for erectile dysfunction Contact prescribing physician if questions or concerns \.br\ Allergies\.br\ No Known Allergies\.br\ No Known Medication Allergies\.br\ Problems\.br\ Ongoing - Any problem that you are currently receiving treatment for.\.br\ Adult BMI 38.0-38.9 kg/sq m\.br\ CAD (coronary artery disease)\.br\ Chronic anticoagulation\.br\ Congestive heart failure\.br\ Factor V Leiden\.br\ History of asplenia\.br\ HTN (hypertension)\.br\ Hx of CABG\.br\ Screening PSA (prostate specific antigen)\.br\ Tubular adenoma of colon\.br\ Patient Survey\.br\ You may receive a survey via text or e-mail asking about your office visit. Please share your e xperience with us by completing your survey. We appreciate your feedback and thank you for choosingus for your care.\.br\ Education Materials\.br\ BMI for Adults\.br\ What is BMI?\.br\ Body mass index (BMI) is a number that is calculated from a person's weight and height. BMI can help estimate howmuch of a person's weight is composed of fat. BMI does not measure body fat directly. Rather, it isan alternative to procedures that directly measure body fat, which can be difficult and expensive.\.br\ BMI can help identify people who may be at higher risk for certain medical problems.\.br\ What are BMI measurements used for?\.br\ BMI is used as a screening tool to identify possible weight problems. It helps determine whether a person is obese, overweight, a healthy weight, or underweight.\.br\ BMI is useful for:\.br\ ? \.br\ Identifying a weight problem that may be related to a medical condition or may increase the risk for medical problems.\.br\ ? \.br\ Promoting changes, such as changes in diet and exercise, to help reach a healthy weight. BMI screening can be repeated to see if these changes are working.\.br\ How is BMI calculated?\.br\ BMI involves measuring your weight in relation to your height. Both height and weight are measured, and the BMI is calculated from those numbers. This can be done either in [place] or metric measurements. Note that charts and online BMI calculators are available to help you find your BMI quickly and easily without having to do these calculations yourself.\.br\ To calculate your BMI in [place] measurements:\.br\ \.br\ 1. \.br\ Measure your weight in pounds (lb).\.br\ 2. \.br\ Multiply the number of pounds by 703.\.br\ ? \.br\ For example, for a person who weighs 180 lb, multiply that number by 703, which equals 126,540.\.br\ 3. \.br\ Measure your height in inches. Then multiply that number by itself to get a measurement called inches squared. \.br\ ? \.br\ For example, for a person who is 70 inches tall,the inches squared measurement is 70 inches x 70 inches, which equals 4,900 inches squared.\.br\ 4. \.br\ Divide the total from step 2 (number of lb x 703) by the total from step 3 (inches squared): 126,540 ? 4,900 = 25.8. This is your BMI.\.br\ To calculate your BMI in metric measurements:\.br\ 1. \.br\ Measure your weight in kilograms (kg).\.br\ 2. \.br\ Measure your height in meters (m). Then multiply that number by itself to get a measurement called meters squared. \.br\ ? \.br\ For examp le, for a person who is 1.75 m [...] you are underweight, normal weight, overweight, or obes e. The following guidelines will be used:\.br\ ? \.br\ Underweight: BMI less than 18.5.\.br\ ? \.br\ Normal weight: BMI between 18.5 and 24.9.\.br\ ? \.br\ Overweight: BMI between 25 and 29.9.\.br\ ?\.br\ Obese: BMI of 30 or above.\.br\ Keep these notes in mind:\.br\ ? \.br\ Weight includes both fat and muscle, so someone with a muscular build, such as an athlete, may have a BMI that is higher than 24.9. In cases like these, BMI is not an accurate measure of body fat.\.br\ ? \.br\ To determineif excess body fat is the cause of a BMI of 25 or higher, further assessments may need to be done by a health care provider.\.br\ ? \.br\ BMI is usually interpreted in the same way for men and women.\.br\ Where to find more information\.br\ For more information about BMI, including tools to quickly calculate your BMI, go to these websites:\.br\ ? \.br\ Centers for Disease Control and Prevention: www.cdc.gov\.br\ ? \.br\ [place] Heart Association: www.heart.org\.br\ ? \.br\ National Heart, Lung, and Blood [place]: www.nhlbi.nih.gov\.br\ Summary\.br\ ? \.br\ Body mass index (BMI) is a number that is calculated from a person's weight and height.\.br\ ? \.br\ BMI may help estimate how much of a person's weight is composed of fat. BMI can help identify those who may be at higher risk for certain medical problems.\.br\ ? \.br\ BMI can be measured using [place] measurements or metric measurements.\.br\ ? \.br\ BMI charts are used to identify whether you are underweight, normal weight, over weight, or obese.\.br\ This information is not intended to replace advice given to you by your health care provider. Make sure you discuss any questions you have with your health care provider.\.br\ Document Revised: 12/07/2019 Document Reviewed: 10/14/2019 [employer] Patient Education ? 2022 [employer].\.br\ \.br\[facility] MemorialCB w/ Auto Diffon 06-04-2023 Basophils/100 WBC (Bld)0.4 %Normal0.0-2.0[facility] MemorialComment on above:Performed By: #### 2900783, 9223084, 99411405, 7838258, 60979161 ####[facility] [address] [place] [address] Basophils/Leukocytes Auto (Bld) [Pure # fraction]0.1 E9/LNormal0.0-0.2FProMedica Toledo HospitalComment on above:Performed By: #### 1753128, 2531277, 12738495, 3732409, 18710513 ####[facility] [address] [place], [place] [address]Aaykerklhqr (Bld) [#/Vol]0.0 E9/LNormal0.0-0.5 [facility] MemorialComment on above:Performed By: #### 3652847, 2145880, 08203436, 2818369, 36335367 ####[facility] [address] [place] [address]Cgbqgrwodas/100 WBC (Bld)0.1 %Normal0.0-8.0[facility] Greene MemorialComment on above:Performed By: #### 5923795, 5279727, 98970476, 8764866, 86988292 ####[address] [address]Mgpekvrvzjv distribution width (RBC) [Ratio]16.4 % High10.9-14.2FProMedica Toledo HospitalComment on above:Performed By: #### 8481768, 8903858, 72092290, 3744821, 64330256 ####[address] [address]Mmtyegoqxt (Bld) [Volume fraction] 42.5 %Tmcddj96.7-49.0[facility] MemorialComment on above:Performed By: #### 2565174, 4292134, 21469276, 3856232, 52706535 ####[address] [address]Tnrbspoxqr (Bld) [Mass/Vol] 13.7 g/iCLgfpvp02.5-17.5FProMedica Toledo HospitalComment on above:Performed By: #### 6856376, 2503613, 74756178, 5734886, 85861943 ####[address] [address]Lpelghrryjk (Bld) [#/Vol]1.2 E9/LNormal1.0-4.0[facility] MemorialComment on above:Performed By: #### 0965366, 0591967, 97928406, 2531158, 16379785 ####[address] [address]Ggjpyttmnhh/100 WBC (Bld)7.3 %Low 14.0-50.0[facility] MemorialComment on above:Performed By: #### 7531061, 0515003, 91269250, 7674306, 58749002 ####[facility] [address] [place] [address] 60759MSR (RBC) [Entitic mass]30.0 pgNormal 27.0-34.0[facility] MemorialComment on above:Performed By: #### 5503695, 2931792, 48671128, 0457040, 49192991 ####[facility] [address] [place] [address]15[address]DDMH (RBC) [Mass/Vol]32.4 g/dLNormal 31.4-36.0[facility] MemorialComment on above:Performed By: #### 1183796, 6417012, 05551424, 7066410, 88830322 ####[facility] [address] [place] [address] 230[address]ORF (RBC) [Entitic vol]92.6 fLNormal 80.0-100.0[facility] MemorialComment on above:Performed By: #### 3761036, 6217279, 48524693, 8794379, 58872766 ####[address] [address]Qtpexhviu (Bld) [#/Vol]4.0 E9/LHigh 0.2-1.0[facility] MemorialComment on above:Result Comment: Review slide for monocytosisPerformed By: #### 5229381, 7251771, 96262636, 2083961, 75249937 ####[address] [address] Neutrophils (Bld) [#/Vol]10.8 E9/LHigh2.0-7.5FProMedica Toledo HospitalComment on above:Performed By: #### 5547745, 9358771, 73102267, 6134180, 87960270 ####[facility] [address] [address] Neutrophils/100 WBC (Bld)67.1 %Nwsovv62.0-75.0[facility] MemorialComment on above:Performed By: #### 2236591, 5271169, 79989301, 3202203, 72670678 ####[address] [address] Betunwhg091.0 E9/QJnzq626.0-500.0[facility] MemorialComment on above: Performed By: #### 6261496, 4858052, 03474812, 0584812, 77439986 ####[address] [address]Wxwvjlig mean volume (Bld) [Entitic vol]8.2 fLNormal6.4-10.8[facility] MemorialComment on above:Performed By: #### 9608598, 0074051, 57257068, 2269621, 19059190 ####[address] [address]CHM (Bld) [#/Vol]4.6 E12/LNormal4.3-5.9[facility] MemorialComment on above: Performed By: #### 7895488, 0018489, 31294192, 2267940, 08345699 ####[address] [address]DTF corrected for nucl RBC Auto (Bld) [#/Vol]16.1 E9/LHigh4.0-11.0[facility] Comment on above:Result Comment: Verified with slide reviewPerformed By: #### 4990878, 8746788, 74784605, 6194803, 41140338 ####[address] [place], [place] [address]OSDQLSVTUZdyubam By: SYSTEM SYSTEM on 18-01-9410Falmenm [Mass/Vol]3.0 g/dLLow3.3 - 5.0 gm/dLRemisol Chem Albumin/Globulin [Mass ratio]0.8 {ratio}Low1.1 - 2.2Remisol ChemALP [Catalytic activity/Vol]118 [iU]/dHigh21 - 98 Int._Unit/LRemisol ChemALT No additional P-5'-P [Catalytic activity/Vol]36 [iU]/dNormal6 - 46 Int._Unit/LRemisol Chem Anion gap [Moles/Vol]15 mmol/LNormal6 - 16 mEq/LRemisol ChemAST [Catalytic activity/Vol]29 [iU]/dNormal5 - 43 Int._Unit/LRemisol ChemBilirubin [Mass/Vol] 1.2 mg/dLHigh0.0 - 1.1 mg/dLRemisol ChemCalcium [Mass/Vol]8.7 mg/dLLow8.9 - 11.1 mg/dLRemisol ChemChloride [Moles/Vol]92 mmol/ALui689 - 111 mmol/LRemisol Chem Cholesterol [Mass/Vol]92 mg/sQNts348 - 200 mg/dLRemisol ChemCholesterol in HDL [Mass/Vol]27 mg/dLInvalid Interpretation CodeRemisol ChemComment on above:Result Comment: '>= 60 LOW RISK' '<= 40 HIGH RISK'Cholesterol in LDL [Mass/Vol]54 mg/dLNormal<=129mg/dLRemisol ChemCholesterol in VLDL [Mass/Vol]13 mg/dLNormal7 - 40 mg/dLRemisol ChemCO2 [Moles/Vol]30 mmol/ZZjpqbq25 - 31 mmol/LRemisol ChemCreatinine [Mass/Vol]0.9 mg/dLNormal0.5 - 1.3 mg/dLRemisol YipoiYBX94 mL/min/1.73 a2Lsfrdm>=59mL/min/1.73 d6Mrtzsld ChemGlobulin (S) [Mass/Vol]3.7 g/dLNormal1.4 - 4.0 gm/dLRemisol Chem Glucose [Mass/Vol]104 mg/qXMzpmes82 - 199 mg/dLRemisol ChemPotassium [Moles/Vol] 4.2 mmol/LNormal3.5 - 5.3 mmol/LRemisol ChemProstate specific Ag [Mass/Vol]0.9 ng/mLNormal0.1 - 3.5 ng/mLRemisol ChemComment on above:Interpretive Data: The concentration of PSA determined by different manufacturers can vary due to di fferences in assay methods and reagent specificity. Values obtained from different assay methods cannot be used interchangeably. The methodology used for this result was chemiluminescence using Dianne Giftah's Access [employer]britech PSA reagent.Protein [Mass/Vol]6.7 g/dLNormal6.0 - 7.8 gm/dLRemisol ChemSodium [Moles/Vol]133 mmol/FHpo563 - 145 mmol/LRemisol ChemTriglyceride [Mass/Vol]66 mg/dLNormal<=149mg/dLRemisol ChemUrea nitrogen [Mass/Vol]15 mg/dLNormal5 - 21 mg/dLRemisol ChemUrea nitrogen/Creatinine [Mass ratio]17 mg/ksMxhpaj20 - 20 Remisol ChemCMPon 42-42-4422Exhwmlk [Mass/Vol]3.0 g/dLLow3.3-5.0[facility] MemorialComment on above:Performed By: #### 8793298, 8288672, 05566845, 9936711, 59602477 ####[facility] [address] [place], [place] [address]Brtzife/Globulin (S) [Mass conc ratio]0.8Low1.1-2.2[facility] Va Medical CenterComment on above:Performed By: #### 4940991, 2168343, 24093997, 9932297, 85848574 ####[facility] [address] [place], [place] [address]BQL [Catalytic activity/Vol]118 Int._Unit/LHigh 21-98[facility] MemorialComment on above:Performed By: #### 9227204, 0284296, 26420960, 6971703, 04906007 ####[facility] [address] [place], [place] [address]XBX No additional P-5'-P [Catalytic activity/Vol]36 Int._Unit/LNormal6-46[facility] MemorialComment on above:Performed By: #### 9389580, 6380565, 69342150, 6849884, 91615723 ####[address] [address]Hmdoz gap [Moles/Vol]15 mmol/LNormal6-16[facility] MemorialComment on above: Performed By: #### 4760349, 2295348, 77871533, 6516209, 62697314 ####[address] [address]KBA [Catalytic activity/Vol]29 Int._Unit/LNormal5-43[facility] MemorialComment on above:Performed By: #### 6983716, 1199650, 42987274, 1747292, 44318364 ####[address] [address] Bilirubin [Mass/Vol]1.2 mg/dLHigh0.0-1.1FProMedica Toledo HospitalComment on above:Performed By: #### 8509562, 9492831, 65914007, 2264575, 09075797 ####[address] [address] Calcium [Mass/Vol]8.7 mg/dLLow8.9-11.1FProMedica Toledo HospitalComment on above:Performed By: #### 0634782, 8672405, 83776173, 2118581, 78259442 ####[address] [address] Chloride [Moles/Vol]92 mmol/SRqu178-178AcqfuqKettering Health Greene MemorialComment on above:Performed By: #### 9413483, 7974403, 15504494, 9395042, 26308200 ####[address] [address]LB9 [Moles/Vol]30 mmol/FPqmrst15-80ElxsebKettering Health Greene MemorialComment on above: Performed By: #### 0481823, 4766280, 04484123, 5330119, 76076831 ####[address] [address]Vceqzoywvl [Mass/Vol]0.9 mg/dLNormal0.5-1.3FProMedica Toledo HospitalComment on above: Performed By: #### 3234863, 2651762, 65165931, 6930475, 36094358 ####[address] [address]Rpflfyga (S) [Mass/Vol]3.7 g/dLNormal1.4-4.0[facility] MemorialComment on above: Performed By: #### 7201653, 5955670, 04841252, 0756103, 00766428 ####[address] [address]Bgcgqps [Mass/Vol]104 mg/tMJbrvvb95-487LzakffKettering Health Greene MemorialComment on above: Performed By: #### 2205019, 0637319, 58146400, 9720631, 02909659 ####[address] [address]Qrlwrjmqc [Moles/Vol]4.2 mmol/LNormal3.5-5.3FProMedica Toledo HospitalComment on above: Performed By: #### 5797455, 6485865, 11569836, 0181224, 01073752 ####[address] [address]Cbcytgd [Mass/Vol]6.7 g/dLNormal6.0-7.8[facility] MemorialComment on above: Performed By: #### 8789343, 3652591, 42428514, 8619953, 33166783 ####[address] [address]Bqiehn [Moles/Vol]133 mmol/DUcr312-853AvxmpfKettering Health Greene MemorialComment on above: Performed By: #### 4555442, 0690268, 97826505, 0760243, 21521030 ####[facility] [address] [place], [place] [address]Jscw nitrogen [Mass/Vol]15 mg/dLNormal5-21[facility] MemorialComment on above: Performed By: #### 4595819, 4985287, 05338387, 0754475, 44267025 ####[facility] [address] [place], [place] [address]Mwxf nitrogen/Creatinine [Mass ratio]17 No NusdtKotjtz24-36IufbtmKettering Health Greene MemorialComment on above:Performed By: #### 6355444, 6345604, 51374426, 8656777, 95098591 ####[facility] [address] [place], [place] [address]Nlxxbc Medicine Office/Clinic Noteon 27-36-4224Lxaiok Medicine Office/Clinic NoteI Staff Torsten is a 67 year old male presenting to establish care Establish Care: History: CABG X 5, Factor V Any previous diagnosis: 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 [facility] When was your last doctors 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: 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 or 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 20 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 Last provider: Dr Hobbs in [place] hasn't seen anyone since Any recent labs: [...] antigen) (Z12.5: Encounter for screening for malignant neoplasmof prostate) Ordered: CBC w/ Auto Diff Comprehensive [...] asplenia HTN (hypertension) Hx (more content not included)...[facility] HospitalComment on above:Result Comment: Electronically Signed By: Yfn ESCOBEDO, Antoine Felix.br\Date and Time Signed: 06/04/23 07:57 ESTHEMATOLOGYOrdered By: SYSTEM SYSTEM on 06-04-2023 Basophils/100 WBC (Bld)0.4 %Normal0.0 - 2.0 %Remisol HemeBasophils/Leukocytes Auto (Bld) [Pure # fraction]0.1 E9/LNormal0.0 - 0.2 E9/LRemisol HemeEosinophils (Bld) [#/Vol]0.0 E9/LNormal0.0 - 0.5 E9/LRemisol HemeEosinophils/100 WBC (Bld) 0.1 %Normal0.0 - 8.0 %Remisol HemeErythrocyte distribution width (RBC) [Ratio] 16.4 %High10.9 - 14.2 %Remisol HemeHematocrit (Bld) [Volume fraction]42.5 % Beiysj53.7 - 49.0 %Remisol HemeHemoglobin (Bld) [Mass/Vol]13.7 g/fZXxmseq52.5 - 17.5 gm/dLRemisol HemeLymphocytes (Bld) [#/Vol]1.2 E9/LNormal1.0 - 4.0 E9/L Remisol HemeLymphocytes/100 WBC (Bld)7.3 %Low14.0 - 50.0 %Remisol HemeMCH (RBC) [Entitic mass]30.0 mxBwfpbd95.0 - 34.0 pgRemisol HemeMCHC (RBC) [Mass/Vol]32.4 g/bVZsoorp65.4 - 36.0 gm/dLRemisol HemeMCV (RBC) [Entitic vol]92.6 yKNcwcyv23.0 - 100.0 fLRemisol HemeMonocytes (Bld) [#/Vol]4.0 E9/LHigh0.2 - 1.0 E9/LRemisol HemeComment on above:Result Comment: Review slide for monocytosisMonocytes/100 WBC (Bld)25.1 %High4.0 - 14.0 %Remisol HemeNeutrophils (Bld) [#/Vol]10.8 E9/L High2.0 - 7.5 E9/LRemisol HemeNeutrophils/100 WBC (Bld)67.1 %Webcze48.0 - 75.0 % Remisol IpazBplgcvbe015.0 E9/EPrcm931.0 - 500.0 E9/LRemisol HemePlatelet mean volume (Bld) [Entitic vol]8.2 fLNormal6.4 - 10.8 fLRemisol HemeRBC (Bld) [#/Vol] 4.6 E12/LNormal4.3 - 5.9 E12/LRemisol HemeWBC corrected for nucl RBC Auto (Bld) [#/Vol]16.1 E9/LHigh4.0 - 11.0 E9/LRemisol HemeComment on above:Result Comment: Verified with slide reviewLipid Panelon 06-63-8717Hgxrrumawzb [Mass/Vol]92 mg/dL Hcu967-340DgutmsKettering Health Greene MemorialComment on above:Performed By: #### [id number], [id number], [id number], [id number], [id number] ####[facility] [address]Nor[place], [place] [address]Krcktbslhle in HDL [Mass/Vol]27 mg/dL Invalid Interpretation CodeKettering Health Greene MemorialComment on above:Result Comment: '>= 60 LOW RISK' '<= 40 HIGH RISK'Performed By: #### [id number], [id number], [id number], [id number], [id number] ####[facility] [address]Nor[place], [place] [address]Qjxwyzxzagg in LDL [Mass/Vol]54 mg/dLNormal<=129[facility] Comment on above:Performed By: #### [id number], [id number], [id number], [id number], [id number] ####[facility] [address]Nor[place], [place] [address]Wypyfsutrgr in VLDL [Mass/Vol]13 mg/dLNormal7-40[facility] Comment on above:Performed By: #### [id number], [id number], [id number], [id number], [id number] ####[facility] Fosfnkyrr[address] AveNorst. elizabeth's [place], [place] [address]Lvnlytvkehav [Mass/Vol]66 mg/dLNormal<=149[facility] Comment on above:Performed By: #### [id number], [id number], [id number], 6976540, [id number] ####[facility] [address]Norwalk, [place] [address]WJN Screen, Totalon 75-65-1268Rvzjxrpj specific Ag [Mass/Vol]0.9 ng/mL Normal0.1-3.5FProMedica Toledo HospitalComment on above:Result Comment: The concentration of PSA determined by different manufacturers can vary due to diffe rences in assay methods and reagent specificity. Values obtained from different assay methods cannot be used interchangeably. The methodology used for this result was chemiluminescence using [employer]'s Access Hybritech PSA reagent.Performed By: #### [id number], [id number], [id number], 1064439, [id number] ####[facility] [address] [place] [address] Patient Educationon 48-16-5591Ewylilj EducationNutrition BMI for Adults What is BMI? Body mass index (BMI) is a number that is calculated from a person's weight and height. BMI can help estimate how much of a person's weight is composed of fat. BMI does not measure body fat directly.Rather, it is an alternative to procedures that [...] your height. Both height and weight are measured,and the BMI is calculated from those numbers. This can be done either in [place] ([place] or metric measurements. Note that charts and online BMI calculators are available to help you find your BMI quickly and easily without having to do these calculations yourself. To calculate your BMI in [place] measurements: 1. Measure your weight in [...] meters squared number. In this example: 70 ?3.1 = 22.6. This is your BMI. What [...] for Disease Control and Prevention: www.cdc.gov ? [place] Heart Association: www.heart.org ? National Heart, Lung, and Blood [place]: www.nhlbi.nih.gov Summary ? Body mass index (BMI) is a number that is calculated from a person's weight and height. ? BMI may help estimate how much of a person's weight is composed of fat. BMI can help identify those who may be at higher risk for certain medical problems. ? BMI can be measured using [place] measurements or metric measurements. ? BMI charts are used to identify whether you are underweight, normal weight, overweight, or obese. This information is not intended to replace advice given to you by your health care provider. Make sure you discuss any questions you have with your health care provider. Document Revised: 12/07/2019 Document Reviewed: 10/14/2019 ElseLearn It Live Patient Education ? 2022 [employer] eGFRon 54-21-2385pHPD68 mL/min/1.73 z8Doklfd>=59[facility] Comment on above:Order Comment: Order added by Discern Expert.Performed By: #### [id number], [id number], [id number], [id number], [id number] ####[facility] [address] [place], [place] [address]QGR AUTO DIFFon 23-90-1529IFAS #0.1 103/ulNormal0.0-0.1[facility] Mer[facility] HospitalComment on above:Performed By: #### CBC #### [facility] [address] [place] [address] Dr. Kaylie CentenoBasophils/100 WBC (Bld)0.9 %Normal0.2-2.0[facility] Comment on above:Performed By: #### CBC #### [facility] [address] [place] [address] Dr. Kaylie Malin #0.3 103/ulNormal0.0-0.7The [facility], Cancer CenterComment on above: Performed By: #### CBC #### [facility] [address] [place] [address] Dr. Kaylie Patinoosinophils/100 WBC (Bld)2.9 %Normal0.9-7.0[facility] Comment on above:Performed By: #### CBC #### [facility] [address] [place] [address] Dr. Kaylie Patinorythrocyte distribution width (RBC) [Ratio]14.4 %Euyzdx81.0-15.0 [facility] HospitalComment on above:Performed By: #### CBC #### [facility] [address] [place] [address] Dr. Kaylie CentenoHematocrit (Bld) [Volume fraction]47.0 %Kjaznt49.0-54.0The [facility], Cancer CenterComment on above:Performed By: #### CBC #### [facility] [address] [place] [address] Dr. Kaylie CentenoHemoglobin (Bld) [Mass/Vol]15.6 g/nPKmivuk35.0-18.0The [facility], Cancer CenterComment on above:Performed By: #### CBC #### [facility] [address] [place] [address] Dr. Kaylie Vazquez #0.03 10e3/ulNormal0.00-0.03The [facility], Cancer CenterComment on above:Performed By: #### CBC #### [facility] [address] [place] [address] Dr. Kaylie Vazquez %0.3 %Normal0.0-0.5The [facility], Cancer CenterComment on above: Performed By: #### CBC #### [facility] [address] [place] [address] Dr. Kaylie Cage #2.9 103/ulNormal1.2-3.8The [facility], Cancer CenterComment on above:Performed By: #### CBC #### [facility] [address] [place] [address] Dr. Kaylie Hadleymphocytes/100 WBC (Bld)25.7 %Cpijim55.5-60.0The [facility], Cancer CenterComment on above:Performed By: #### CBC #### [facility] [address] [place] [address] Dr. Kaylie MainUAL DIFF REQNONormalThe [facility], Cancer CenterComment on above: Performed By: #### CBC #### [facility] [address] [place] [address] Dr. Kaylie Pittman (RBC) [Entitic mass]33.3 afRrkmcj21.9-34.0The [facility], Cancer CenterComment on above:Performed By: #### CBC #### [facility] [address] [place] [address] Dr. Kaylie PattenHC (RBC) [Mass/Vol]33.2 g/tWKjhfvh94.9-35.2The [facility], Cancer CenterComment on above:Performed By: #### CBC #### [facility] [address] [address] [address] Kaylie PattenV (RBC) [Entitic vol]100.2 fLCritically high80.0-94.0The [facility], Cancer CenterComment on above:Performed By: #### CBC #### [facility] [address] [address] [address] Kaylie Constantino #2.0 103/ulCritically high0.3-0.8The [facility] Comment on above:Performed By: #### CBC #### [facility] [address] [place] [address] Dr. Kaylie Tobarocytes/100 WBC (Bld)17.7 %Critically high1.7-12.0The [facility], Cancer CenterComment on above:Performed By: #### CBC #### [facility] [address] [place] [address] Dr. Kaylie Ruiz #5.9 103/ulNormal1.4-6.5The [facility], Cancer CenterComment on above:Performed By: #### CBC #### [facility] [address] [place] [address] Dr. Kaylie Boydutrophils/100 WBC (Bld)52.5 %Kghyca64.0-75.0The [facility], Cancer CenterComment on above:Performed By: #### CBC #### [facility] [address] [place] [address] Dr. Kaylie Mosherlet mean volume (Bld) [Entitic vol]10.3 fLNormal9.5-13.5The [facility], Cancer CenterComment on above:Performed By: #### CBC #### [facility] [address] [place] [address] Dr. Kaylie MilesT354 103/lxWqqrmi289-234Oaj [facility] CenterComment on above: Performed By: #### CBC #### [facility] [address] [address] [address] Kaylie CentenoRBC4.69 106/ulCritically low4.70-6.10The [facility], Cancer CenterComment on above:Performed By: #### CBC #### [facility] [address] [address] [address] Kaylie CentenoWBC11.2 103/ulCritically high4.0-11.0The [facility], Cancer CenterComment on above:Performed By: #### CBC #### [facility] [address] [address] [address] Kaylie CentenoGLYCOHEMOGLOBIN A1Con 53-56-2133TRT RECOMMENDATIONSEE BELOWWooster Community HospitalComment on above:Result Comment: ADA RECOMMENDED LIMIT 4.0 - 6.0 ADA THERAPEUTIC TARGET < 7.0 ACTION SUGGESTED > 7.0Performed By: #### A1C #### [facility] [address] [place] [address] Dr. Kaylie CentenoGlucose [Mass/Vol]137 mg/dLNormOhio State Harding HospitalComment on above:Performed By: #### A1C #### [facility] [address] [place] [address] Dr. Kaylie CentenoHbA1c (Bld) [Mass fraction]6.4 %Critically high4.5-6.2The [facility], Cancer CenterComment on above:Performed By: #### A1C #### [facility] [address] [place] [address] Dr. Kaylie CentenoLIPID PROFILEon 80-30-7808QPPC-HDL RATIO NORMSEE [facility] Medical CenterComment on above:Result Comment: 3.3 - 4.4 LOW RISK 4.4 - 7.1 AVERAGE RISK 7.1 - 11.0 MODERATE RISK >11.0 HIGH RISKPerformed By: #### CMP, LIPID #### [facility] [address] [place] [address] Dr. Kaylie CentenoCholesterol [Mass/Vol]148 mg/dLNormal<=200The [facility] Comment on above:Performed By: #### CMP, LIPID #### [facility] [address] [place], [place] [address] Dr. Kaylie CentenoCholesterol in HDL [Mass/Vol]46 mg/rBJpodwh27-25Mgy [facility] on above:Performed By: #### CMP, LIPID #### [facility] [address] [place] [address] Dr. Kaylie CnetenoCholesterol in LDL [Mass/Vol]65.0 mg/dLSelect Medical Specialty Hospital - AkronComment on above:Performed By: #### CMP, LIPID #### [facility] [address] [place] [address] Dr. Kaylie Sylvesterestervalentine.total/Cholesterol in HDL [Mass ratio]3.2 {ratio} NormalThe [facility], Cancer CenterComcorewell health greenville hospital on above:Performed By: #### CMP, LIPID #### [facility] [address] [place] [address] Dr. Kaylie Sanford NORMAL> or = 60 mg/dl - LOW CARDIOVASCULAR RISK <40 mg/dl - HIGH CARDIOVASCULAR RISKSelect Medical Specialty Hospital - AkronComcorewell health greenville hospital on above:Performed By: #### CMP, LIPID #### [facility] [address] [place] [address] Dr. Kaylie Jasso CALC NORMALSEE BELOWSelect Medical Specialty Hospital - AkronComcorewell health greenville hospital on above:Result Comment: <100 mg/dl OPTIMAL 100 - 129 mg/dl NEAR OR ABOVE OPTIMAL 130 - 159 mg/dl BORDERLINE HIGH 160 - 189 mg/dl HIGH >190 mg/dl VERY HIGH Performed By: #### CMP, LIPID #### [facility] [address] [place] [address] Dr. Kaylie CentenoTriglyceride [Mass/Vol]185 mg/dLCritically high<=150The [facility], Cancer CenterComcorewell health greenville hospital on above:Performed By: #### CMP, LIPID #### [facility] [address] [place] [address] Dr. Kaylie CentenoVLDL CALC37.0 mg/dLFirelands Regional Medical Center South Campus on above: Performed By: #### CMP, LIPID #### [facility] [address] [place] [address] Dr. Kaylie CentenoPROF 14(COMP METB)on 81-15-8422Edtftpu [Mass/Vol]3.7 g/dLNormal 3.4-5.0The [facility], Cancer CenterComment on above:Performed By: #### CMP, LIPID #### [facility] [address] [place] [address] Dr. Kaylie CentenoAlbumin/Globulin [Mass ratio]1.0 {ratio}NormalThe [facility], Cancer CenterComment on above:Performed By: #### CMP, LIPID #### [facility] [address] [place] [address] Dr. Kaylie Marquez [Catalytic activity/Vol]79 U/QFrjcjq36-681Knt [facility], Cancer CenterComment on above:Performed By: #### CMP, LIPID #### [facility] [address] [place] [address] Dr. Kaylie Marquez [Catalytic activity/Vol]27 U/JVhlwry17-94Sqf [facility], Cancer CenterComment on above:Performed By: #### CMP, LIPID #### [facility] [address] [place] [address] Dr. Kaylie Carlson gap [Moles/Vol]6.3 mmol/LNormalThe [facility], Cancer CenterComment on above:Performed By: #### CMP, LIPID #### [facility] [address] [place] [address] Dr. Kaylie Vasques [Catalytic activity/Vol]17 U/XSdcdog54-57Hbu [facility], Cancer CenterComment on above:Performed By: #### CMP, LIPID #### [facility] [address] [place] [address] Dr. Kaylie CentenoBilirubin [Mass/Vol]0.7 mg/dLNormal0.2-1.0The [facility] Comment on above:Performed By: #### CMP, LIPID #### [facility] [address] [place] [address] Dr. Kaylie CentenoCalcium [Mass/Vol]9.0 mg/dLNormal8.5-10.1The [facility] Comment on above:Performed By: #### CMP, LIPID #### [facility] [address] [place] [address] Dr. Kaylie CentenoChloride [Moles/Vol]101 mmol/UPzaguf91-181Hzi [facility] Comment on above:Performed By: #### CMP, LIPID #### [facility] [address] [address] [address] Kaylie CentenoCO2 [Moles/Vol]35.6 mmol/LCritically high21.0-32.0The [facility], Cancer CenterComment on above:Performed By: #### CMP, LIPID #### [facility] [address] [place] [address] Dr. Kaylie CentenoCreatinine [Mass/Vol]0.91 mg/dLNormal0.70-1.30The [facility], Cancer CenterComment on above:Performed By: #### CMP, LIPID #### [facility] [address] [place] [address] Dr. Kaylie PatinoGFR-AF HONG K[place]ER>60Normal>=60The [facility], Cancer CenterComment on above:Performed By: #### CMP, LIPID #### [facility] [address] [place] [address] Dr. Kaylie PatinoGFR-NON AF [place]ONG K[place]ER>60Normal>=60The [facility], Cancer CenterComment on above:Performed By: #### CMP, LIPID #### [facility] [address] [place] [address] Dr. Kaylie CentenoGlobulin (S) [Mass/Vol]3.8 g/dLNormalThe [facility] CenterComment on above:Performed By: #### CMP, LIPID #### [facility] [address] [place] [address] Dr. Kaylie CentenoGlucose [Mass/Vol]87 mg/mWScrjbo98-842Ths [facility] Comment on above:Performed By: #### CMP, LIPID #### [facility] [address] [address] [address] Kaylie CentenoPotassium [Moles/Vol]3.9 mmol/LNormal3.5-5.1The [facility] Comment on above:Performed By: #### CMP, LIPID #### [facility] [address] [address] [address] Kaylie CentenoProtein [Mass/Vol]7.5 g/dLNormal6.4-8.2The [facility] Comment on above:Performed By: #### CMP, LIPID #### [facility] [address] [address] [address] Kaylie CentenoSodium [Moles/Vol]139 mmol/LWkutuc987-605Ugs [facility] Comment on above:Performed By: #### CMP, LIPID #### [facility] [address] [address] [address] Kaylie CentenoUrea nitrogen [Mass/Vol]11.0 mg/dLNormal7.0-18.0The [facility], Cancer CenterComment on above:Performed By: #### CMP, LIPID #### [facility] [address] [place] [address] Dr. Kaylie Leo nitrogen/Creatinine [Mass ratio]12.1 mg/mgNormalThe [facility] CenterComment on above:Performed By: #### CMP, LIPID #### [facility] [address] [place] [address] Dr. Kaylie CentenoXR pre/post mri xrayon 57-37-7724MZ pre/[place] [address] MRI Report Signed Patient: Torsten Haywood MR#: [id number] : 1955 Acct:[id number] Age/Sex: 64 / M ADM Date: 09/25/20 Loc: Room: Type: [facility] Attending Dr: Felipe Frank DO Ordering Provider: Jordan Frank DO Date of Service: 09/25/20 MR/MR lumbar spine wo con: R29.898 LEG WEAKNESS BILATERAL ([id number]) XR/XR pre/post mri xray: R29.898 LEG WEAKNESS [...] Esperanza Humphries M.D.09/25/2020 10:48 AM Dictation Location: [place] [address] Transcribed By: [facility] 09/25/20 1048 Dictated By: Esperanza Humphries II, MD 09/25/20 1041 Signed By: 09/25/20 1048[facility] [id number] AND [facility] CenterDepartment of Xiae[address]fl[address] [place] [address] Patien t Name: TORSTEN HAYWOOD : 1955Sex: MAge: Race: WhiteMRN: [id number]. Location: OUTPPatient Status: DVisit #: [id number] Date: 04/30/2017 7:00:00 AMCompleted Date: 04/30/2017 08:06 AMRequesting Provider: CARLA CERVANTES Attending Provider: CARLA CERVANTES Report Copy To: Signs & Symptoms: Post Pacemaker/AICD PlacementHistory: Patient history not availableComments: Check Pacemaker/AICD Lead Position, Chest X-ray PA \EANDE\ LAT in Dept ;DO NOT lift affected arm above shoulder. S/P pacemaker/ICD implant. Verify lead placementExam: CHEST AND LATERALAccession #: [id number] CHEST AND LATERAL 04/30/2017 8:06 AM EST SIGNS AND SYMPTOMS: Post Pacemaker/AICD Placement TECHNOLOGIST COMMENTS: post pacemaker placementQUESTION FOR THE RADIOLOGIST: Check Pacemaker/AICD Lead Position, [...] before. IMPRESSION: 1. Interval placement of left subclaviansingle lead AICD/pacemaker with lead projecting in the right ventricle. No pneumothorax.2. Stable cardiomegaly without evidence for acute cardiopulmonary process. Approved by:Ham Trotter on 04/30/2017 11:04 AM EST. I, Darcie Begum, have reviewed the images and report and concur with these findings. Electronically signed by:Darcie Begum. Transcribed by: [id number], User Resident: HAM TROTTERElectronically Signed by: DARCIE BEGUM @ 04/30/2017 10:35 PMI personally read this/these film(s) with this residentPremier Health Miami Valley HospitalComment on above:Order Comment: << On admission If not done in ED>>No: Do not add to previous drawCardiovascular Lab Reporton 04-30-2017 Cardiovascular Lab ReportUnMartin Memorial Hospital [facility]: [id number] Physician: Carla MurphyDepartment of Sydnie CervantesMedicine Service Date: 04/29/2017Division of Birthdate: 1955Cardiology Room #: 3CD [id number] CardiovascularServicJohn [address] [address] [place], [place] [address]Yumpf Fax Cardiovascular Laboratory ReportINDICATION: Mr. Haywood [facility] a [facility]. He has ischemic c ardiomyopathy with a lowejection fraction. He underwent coronary artery bypass grafting by on December 19, 2016, 4 months ago. He continued to have hisejection fraction monitored and it remained below 35% at 25%-30%. He sawDr. Tena, who recommended him defibrillator for primary prevention ofsudden . He has a class 1 indication to defibrillator. 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 I did discuss the casewith the patient and the power of at [facility] prior to the case. Her name Chiara Haywood. He was brought to the EP lab, sterilely preppedand draped.He was given conscious sedation through a [...] with very good sensing, pacingthreshold, and satisfactory position.The lead was tested, tethered with 0silk.The wound was irrigated with bacitracin and gentamicin. Hehad receivedcefazolin and vancomycin intravenously.The device was attached, secured, placed in the pocket, tethered with theheader suture. The wound was closed in 2 running layers of 2-0 Vicryl,running layer of 3-0 Vicryl adhered with Dermabond, Steri-Strips. Spongeand needle counts were correct.Total sedation time was 1 hour. Total fluoroscopy time 16 minutes. Totalcontrast 10 mL. The device wasa Medtronic Visia, #[id number]. The leadwas a Medtronic 6935, #[id number]. Sensed R-waves were 8.5mV, pacingimpedance 513 ohms, high-voltage impedance 74 ohms, pacing threshold at 0.5milliseconds was 0.75 V.ASSESSMENT:1. Conscious sedation.2. Fluoroscopy.3. Contrast injection for venography.4. Venography of the left upper extremity.5. Placement of a single-chamber ICD.Electronically Signed by:Carla Cervantes M.D. 05/04/2017 09:54 A Carla Cervantes M.D.Date Dict: 04/29/2017/10:26 Trang/Carla Cervantes M.D.Date Trans: 04/30/2017 07:04 Trang/[place]and[place]_JN:[id number]: Francisco Tena M.D. Heart Failure/ Transplant Mailstop [address] [facility] [address] Darin Perea D.O. [facility]5 [facility] [address]TuqxthYkrPremier Health Miami Valley HospitalDischarge Summaryon [id number] SummaryMR#: [id number] [facility] Admitted: 12/12/2016Discharged: 12/29/2016 Date of : 1955 Physician: Torsten Yepez M.D. DISCHARGE SUMMARYPRIMARY DIAGNOSIS: Coronary artery disease, ischemic cardiomyopathy.SUMMARY: Mr. Haywood is a 60-year-old male with CHF, [place] [facility] and was transferred [facility].He underwent coronary angiography, and was found to have severe 3- vesselcoronary occlusive disease. He was medically managed by [...] the trait and afterrisks, benefits of anticoagulation werediscussed, he elected to startEliquis. The rest of the postop course was mildly complicated by CHF,which was managed medically with diuresis. There were also pleuraleffusions, which did not required drainage. By postop day #7, he wasambulatory, tolerating a regular diet and experiencing an acceptable levelof pain. He was discharged to a long term facility.DISCHARGE INSTRUCTIONS: He was to observe a [...] weeks after surgery. He was [facility]to [facility] antico[facility] for education regarding his [...] from me. Date Dict: 01/12/2017/01:51 P/JOHN Jones, M[employer] EDUCATIONAL SPECIALIST-CDate Trans: 01/13/2017 05:24 A/SuzannaN_JN:[id number]: Esperanza Shore M.D. [address] [place] [address] Dept. Of Surgery, [address] [facility] [address]TwjuhjQyjPremier Health [facility] BASIC METABOLIC PANELon 25-73-7692Mobnllz2.6 mg/dLNormal8.6-10.3The [facility]ma HealthComment on above:Order Comment: << On admission If not done in ED>>No: Do not add to previous drawPerformed By: #### 36923, 56904, 51368, 88657, 51138 ####[facility] [place] [address], CTQZzzqxucz83 mmol/VSgz26-763Bsb [facility] HealthComment on above:Order Comment: << On admission If not done in ED>>No: Do not add to previous drawPerformed By: #### 66278, 11359, 18548, 20493, 77979 ####[facility] [place] [address], RGUCT550 mmol/QVgxauw27-67Jeh [facility] Comment on above:Order Comment: << On admission If not done in ED>>No: Do not add to previous drawPerformed By: #### 21448, 39681, 92017, 77281, 65483 ####[facility] [place] [address], [facility] Creatinine1.05 mg/dLNormal0.70-1.30The [facility] Comment on above:Order Comment: << On admission If not done in ED>>No: Do not add to previous drawPerformed By: #### 61535, 86080, 60740, 28410, 17235 ####[facility] [place] [address], [facility] eGFR (black)mL/min/{1.73_m2}Normal>60The [facility] Comment on above:Order Comment: << On admission If not done in ED>>No: Do not add to previous drawPerformed By: #### 06487, 55244, 37597, 62886, 56442 ####[facility] [place] [address], [facility] eGFR (non-black)mL/min/{1.73_m2}Normal>60The [facility] Comment on above:Order Comment: << On admission If not done in ED>>No: Do not add to previous drawPerformed By: #### 27244, 85772, 92183, 92673, 37979 ####[facility] [place] [address], [facility] Glucose mass wmbi375 mg/dPWlsa23-507Jbh [facility] Comment on above:Order Comment: << On admission If not done in ED>>No: Do not add to previous drawPerformed By: #### 89749, 31003, 31350, 74386, 34473 ####[facility] [place] [address], [facility] Potassium molar conc3.5 mmol/LNormal3.5-5.1The [facility] HealthComment on above:Order Comment: << On admission If not done in ED>>No: Do not add to previous drawPerformed By: #### 14364, 12172, 38794, 86237, 54866 ####[facility] [place] [address], [facility] Mekkxu180 mmol/BRfv934-341Cyo [facility] HealthComment on above:Order Comment: << On admission If not done in ED>>No: Do not add to previous drawPerformed By: #### 48908, 55244, 57669, 86892, 34763 ####[facility] [place] [address], [facility] MEXICOUrea mcpaxlsr46 mg/dLHigh7-25The [facility] HealthComment on above:Order Comment: << On admission If not done in ED>>No: Do not add to previous draw Performed By: #### 39339, 81994, 75111, 10767, 97787 ####[facility] [place] [address], [facility] MEXICOCBC COMPLETE BLOOD COUNTon 92-93-9155Vaplovdkqgq distribution width Auto Ratio (RBC)13.7 %Emnnwa25.5-16.9 The [facility] HealthComment on above:Order Comment: << On admission If not done in ED>>No: Do not add to previous drawPerformed By: #### 56893, 28387, 25694, 52809, 74182 ####[facility] [place] [address], [facility] MEXICOErythrocytes (RBC)2.54 mill/ol7Xsf4.30-5.90 The [facility] HealthComment on above:Order Comment: << On admission If not done in ED>>No: Do not add to previous drawPerformed By: #### 90388, 45019, 56723, 03737, 23619 ####[facility] [place] [address], [facility] MEXICOHematocrit (HCT)25.4 %Low39.0-55.0The [facility] HealthComment on above:Order Comment: << On admission If not done in ED>>No: Do not add to previous drawPerformed By: #### 20268, 63415, 31847, 97340, 19343 ####[facility] [place] [address], [facility] MEXICOHemoglobin mass conc (Bld)8.4 g/dLLow 13.9-16.3The [facility] HealthComment on above:Order Comment: << On admission If not done in ED>>No: Do not add to previous drawPerformed By: #### 78777, 06315, 30356, 44284, 20133 ####[facility] [place] [address], NQAIQS77.2 hwDcot16.0-32.0The [facility] HealthComment on above:Order Comment: << On admission If not done in ED>>No: Do not add to previous drawPerformed By: #### 99015, 39376, 73766, 62901, 42802 ####[facility] [place] [address], [facility] MEXICOMCHC mass conc (RBC)33.1 g/rKZvuavl95.0-36.0 The [facility] HealthComment on above:Order Comment: << On admission If not done in ED>>No: Do not add to previous drawPerformed By: #### 08729, 34670, 38304, 72896, 23243 ####[facility] [place] [address], BMCVIN810.1 hRIjrz41.0-100.0The [facility] HealthComment on above:Order Comment: << On admission If not done in ED>>No: Do not add to previous drawPerformed By: #### 16193, 42450, 04313, 84346, 44902 ####[facility] [place] [address], [facility] SOUTHER[facility] MEXICOPLAT JAL808 Thou/cc8Zbpj993-786Hao [facility] HealthComment on above:Order Comment: << On admission If not done in ED>>No: Do not add to previous drawPerformed By: #### 57526, 36537, 41282, 89349, 37830 ####[facility] [place] [address], [facility] WBC (Leukocytes)22.4 Thou/ct5Xynz7.0-10.0The [facility] Comment on above:Order Comment: << On admission If not done in ED>>No: Do not add to previous drawPerformed By: #### 32189, 93719, 54127, 79535, 51559 ####[facility] [place] [address], [facility] POC GLUCOSE LABon 12-87-1448Mdqxiqe mass zjtg034 mg/iSCieh20-639Zjt [facility] HealthComment on above:Performed By: #### 44898, 17763, 63690, 65684, 84594 ####[place] [address] [place] [address], [facility] MEXICOGlucose mass tqqv533 mg/iZHfcr91-372Qpz [facility] HealthComment on above:Performed By: #### 81950, 33570, 61214, 25486, 93382 ####[facility]Glucose mass usyg205 mg/jKQlgd85-465Dni [facility] HealthComment on above:Performed By: #### 00806, 16087, 63591, 07627, 48725 ####[facility] *BLOOD CULTUREon 12-28-2016*BLOOD CULTUREClinical Report: (D) Specimen: BLOOD CULTURE Collected: 12/28/2016 19:27 Status: Final Last Updated: 01/03/2017 08:14 CULT RES (Final) No Growth Day 5NoMemorial Health System Selby General HospitalComment on above: Performed By: #### 67076, 57996, 18165, 30580, 43921 ####[facility] [place] [address]*SPUTUM CULTUREon 12-28-2016*SPUTUM CULTUREClinical Report: (D) Specimen/Source: SPUTUM/SPUTUM, SPONTANEOUS Collected: 12/28/2016 21:51 Status: Final Last Updated: 12/30/2016 08:09 (1) No: Do not add to previous draw GRAM (Final) 10-25 Squamous Epithelial Cells, <10 Polys Per Low Power Field Many Gram Negative Bacilli Many Gram Positive Cocci In Clusters ISO (Final) Heavy Growth Colonies Consistent with Upper Respiratory FloraNoMemorial Health System Selby General HospitalComment on above:Order Comment: << On admission If not done in ED>>No: Do not add to previous drawPerformed By: #### 08275, 25496, 80454, 44418, 95313 ####[facility]BASIC METABOLIC PANELon 01-25-5331Rpyswzr2.8 mg/dLNormal8.6-10.3The [facility] HealthComment on above:Order Comment: << On admission If not done in ED>>No: Do not add to previous drawPerformed By: #### 54428, 61106, 54803, 03801, 15016 ####[facility] [place] [address], [place] Jwyeahwt50 mmol/NHzh15-889Yad [facility] HealthComment on above:Order Comment: << On admission If not done in ED>>No: Do not add to previous drawPerformed By: #### 47385, 30791, 69902, 44552, 60458 ####[facility] [place] [address], YJHNF232 mmol/L Ljkrya86-64Fsv [facility] HealthComment on above:Order Comment: << On admission If not done in ED>>No: Do not add to previous draw Performed By: #### 01135, 37840, 64687, 76071, 79887 ####[facility] [place] [address], USACreatinine1.34 mg/dLHigh 0.70-1.30The [facility] HealthComment on above:Order Comment: << On admission If not done in ED>>No: Do not add to previous drawPerformed By: #### 26440, 64776, 60511, 33670, 00967 ####[facility] [place] [address], USAeGFR (black)mL/min/{1.73_m2}Normal >60The [facility] HealthComment on above:Order Comment: << On admission If not done in ED>>No: Do not add to previous drawPerformed By: #### 84836, 40002, 85576, 59031, 81517 ####[facility] [place] [address], USAeGFR (non-black)55 ml/min/1.73sq mAbnormal>60 The [facility] HealthComment on above:Order Comment: << On admission If not done in ED>>No: Do not add to previous drawPerformed By: #### 59498, 65077, 39789, 79161, 43549 ####[facility] [place] [address], USAGlucose mass xbza233 mg/vYSanl75-352Xoi [facility] HealthComment on above:Order Comment: << On admission If not done in ED>>No: Do not add to previous drawPerformed By: #### 43952, 97066, 24080, 37631, 03230 ####[facility] [place] [address], USAPotassium molar conc3.7 mmol/LNormal3.5-5.1 The [facility] HealthComment on above:Order Comment: << On admission If not done in ED>>No: Do not add to previous drawPerformed By: #### 77090, 07173, 42103, 40227, 23951 ####[facility] [place] [address], QJYNwecfe812 mmol/YIok794-008Rcl [facility] HealthComment on above:Order Comment: << On admission If not done in ED>>No: Do not add to previous drawPerformed By: #### 24549, 82597, 31144, 08857, 52896 ####[facility] [place] [address], USAUrea mg/dLHigh7-25The [facility] HealthComment on above:Order Comment: << On admission If not done in ED>>No: Do not add to previous drawPerformed By: #### 58588, 33539, 78734, 43764, 87065 ####[facility] [place] [address], [place] CBC W/DIFFon 91-95-7397OKJPL7.0 %Normal0.0-4.0The [facility] HealthComment on above:Performed By: #### 37884, 19419, 06980, 05792, 51624 ####[facility] [place] [address].[place] [address], [facility] Basophils Auto #/vol (Bld)0.0 %Normal0.0-2.0The [facility] HealthComment on above:Performed By: #### 17937, 49200, 78077, 75742, 09942 ####[facility] [place] [address].[place] [address], [facility] Eosinophils/100 leukocytes2.0 %Normal0.0-5.0The [facility] HealthComment on above:Performed By: #### 81326, 22289, 03000, 81785, 16574 ####[place] [address], [facility] Erythrocyte distribution width Auto Ratio (RBC)13.9 %Eyaqmc78.5-16.9The [facility] HealthComment on above:Performed By: #### 99538, 78165, 01018, 77265, 09237 ####[place] [address], [facility] MEXICOErythrocytes (RBC)2.72 mill/dj0Wff5.30-5.90The [facility] HealthComment on above:Performed By: #### 96410, 08202, 03446, 17063, 44926 ####[address] [place] [address], [facility] MEXICOHematocrit (HCT)27.4 %Low39.0-55.0The [facility] HealthComment on above:Performed By: #### 25568, 45352, 57713, 89700, 54642 ####[place] [address], [facility] MEXICOHemoglobin mass conc (Bld)8.9 g/dLLow13.9-16.3The [facility] HealthComment on above:Performed By: #### 79239, 87091, 50629, 04658, 98578 ####[facility] [place] [address], [facility] MEXICOLymphocytes/100 leukocytes3.0 %Low20.0-40.0The [facility] HealthComment on above:Performed By: #### 62722, 35319, 13842, 64952, 12703 ####[facility] [place], [place] [address] [address], KKOJOU19.6 hbFxhn87.0-32.0The [facility] HealthComment on above:Performed By: #### 34996, 35868, 69396, 11247, 68071 ####[address] [place] [address], [facility] – MIAMIHC mass conc (RBC)32.4 g/uXOivecs14.0-36.0The [facility] HealthComment on above:Performed By: #### 11896, 09241, 82556, 10446, 93641 ####[facility] [place] [address].[place] [address], QQMYKG287.6 fLHigh 80.0-100.0The [facility] HealthComment on above:Performed By: #### 44376, 71850, 32361, 83739, 37204 ####[address] [place] [address], USAMETHODManual blood smear examination performedPremier Health Miami Valley HospitalComment on above:Performed By: #### 77309, 17729, 33008, 71622, 18759 ####[place] [address] [place] [address], WYFUSWIY22.0 %High2-8 The [facility] HealthComment on above:Performed By: #### 61386, 09424, 76918, 67331, 10591 ####[address] [place] [address], USAOTHER 1NORMAL RED CELL MORPHOLOGY SEENNormal The [facility]ma HealthComment on above:Performed By: #### 69013, 58432, 10749, 80974, 15766 ####[facility] [place] [address], USAPLAT NRR302 Thou/pi2Jcnn724-656Mhm [facility] HealthComment on above:Performed By: #### 95717, 47937, 79717, 89594, 12605 ####[facility] [place] [address], NNMMDUX17.0 %Pmyl68-21Lmy [facility] HealthComment on above:Performed By: #### 39999, 94314, 16518, 29983, 45484 ####[facility] [place] [address], [facility] MEXICOWBC (Leukocytes) 23.0 Thou/bq6Lppk6.0-10.0The [facility] HealthComment on above:Performed By: #### 20628, 27166, 19476, 25120, 09666 ####[facility] [place] [address], [facility] MEXICOMAGNESIUM BLOODon 07-67-2759Wdgtxddkt3.4 mg/dLNormal1.9-2.7The [facility] Comment on above:Order Comment: << On admission If not done in ED>>No: Do not add to previous drawPerformed By: #### 82454, 01978, 26386, 04861, 25849 ####[facility] [place] [address], [place] PHOSPHORUS BLOODon 05-50-6440Vciiciiag4.8 mg/dLNormal2.5-5.0The [facility] HealthComment on above:Order Comment: << On admission If not done in ED>>No: Do not add to previous drawPerformed By: #### 96971, 71580, 61914, 91926, 01304 ####[facility] [place] [address], [facility] SOUTHER[facility] MEXICOPOC GLUCOSE LABon 54-82-6858Smspfmd mass uadh872 mg/zVPcej65-561Tzk [facility] HealthComment on above:Performed By: #### 70476, 90104, 41707, 75386, 27814 ####[facility] [place] [address], USAGlucose mass osfb936 mg/hZCpqn12-359Goh [facility] HealthComment on above:Performed By: #### 81596, 95512, 19460, 12803, 37275 ####[facility] [place] [address], USAGlucose mass zdpu565 mg/zDGbtm48-526Kre [facility] HealthComment on above:Performed By: #### 35828, 11863, 12801, 18504, 58706 ####[facility] [place] [address], USAGlucose mass ttvg037 mg/iHLcwj38-633Owa [facility] HealthComment on above:Performed By: #### 79314, 13522, 28599, 27829, 87623 ####[facility] [place], [place] [address] [address], [facility] PORTABLE CHEST 1 VIEWon 80-10-1939SGBGEQRG CHEST 1 VIEWUnParma Community General HospitalDepartment of Uhrovvizz[address] [place] [id number] Patien bo Name: TORSTEN HAYWOOD : 1955Sex: MAge: Race: WhiteMRN: [id number]. Location: [id number]: IVisit #: [id number] Date: 12/28/2016 7:10:00 PMCompleted Date: 12/28/2016 07:38 PMRequesting Provider: MELANIE SPIVEY Attending Provider: TORSTEN YEPEZ Report Copy To: Signs & Symptoms: Elevated WBCHistory: Patient history not availableComments: R/O PneumoniaExam: PORTABLECHEST 1 VIEWAccession #: [id number] ======PORTABLE CHEST 1 VIEW 12/28/2016 7:38 PM EDT [...] CHF. Electronically signed by:Rayshawn Hall. Transcribed by: [email or web address], User Resident: Electronically Signed by: RAYSHAWN HALL @ 12/29/2016 07:47 AMNormal The [facility]ma HealthComment on above:Order Comment: << On admission If not done in ED>>No: Do not add to previous drawURINALYSIS REFLEXon 76-87-9170Rdlmcxbef (total)NegativeNormalNEGATIVEThe [facility]ma HealthComment on above:Order Comment: << On admission If not done in ED>>No: Do not add to previous drawPerformed By: #### 07256, 10228, 51752, 61817, 60070 ####[facility] [place] [address], USABLOODNegativeNormalNEGATIVEThe [facility] Comment on above:Order Comment: << On admission If not done in ED>>No: Do not add to previous drawPerformed By: #### 05272, 00992, 88663, 96244, 98588 ####[facility] [place] [address], [place] Erythrocytes (RBC)0-4Aiwauymp8-7Jlj [facility] HealthComment on above:Order Comment: << On admission If not done in ED>>No: Do not add to previous drawPerformed By: #### 59872, 65588, 92764, 27761, 80964 ####[facility] [place] [address], [facility] MEXICOGlucose mass concNegativeNormalNEGATIVEThe [facility] HealthComment on above:Order Comment: << On admission If not done in ED>>No: Do not add to previous drawPerformed By: #### 69873, 90293, 27596, 80815, 17909 ####[facility] [place] [address], [facility] MEXICOKETONENegative NormalNEGATIVEThe [facility]ma HealthComment on above:Order Comment: << On admission If not done in ED>>No: Do not add to previous draw Performed By: #### 94019, 36709, 08110, 46128, 80915 ####[facility] [place] [address], USALEUK ESTERNegativeNormal NEGATIVEThe Summa HealthComment on above:Order Comment: << On admission If not done in ED>>No: Do not add to previous drawPerformed By: #### 73808, 84259, 38820, 89853, 77900 ####[facility] [place] [address], USAMUCUS THREADSFEWAbnormalNONE SEEN The [facility]ma HealthComment on above:Order Comment: << On admission If not done in ED>>No: Do not add to previous drawPerformed By: #### 93199, 99384, 58984, 55410, 35847 ####[facility] [place] [address], [facility] MEXICOpH of blood5.0 [pH]Normal5.0-8.0The [facility] HealthComment on above:Order Comment: << On admission If not done in ED>>No: Do not add to previous drawPerformed By: #### 96877, 39589, 55923, 76623, 28077 ####[facility] [place] [address], [facility] MEXICOProteinNegativeNormalNEGATIVEThe Summa HealthComment on above:Order Comment: << On admission If not done in ED>>No: Do not add to previous drawPerformed By: #### 82858, 47714, 28093, 37363, 72774 ####[facility] [place] [address], [facility] MEXICOSPEC GRAV1.543Zkqhkt3.015-1.020The [facility] HealthComment on above:Order Comment: << On admission If not done in ED>>No: Do not add to previous drawPerformed By: #### 02736, 06694, 32761, 37080, 28716 ####[facility] [place] [address], [facility] MEXICOUrine, appearanceCLEARNormalCLEARThe [facility]ma HealthComment on above:Order Comment: << On admission If not done in ED>>No: Do not add to previous drawPerformed By: #### 17491, 32797, 71062, 30470, 71292 ####[facility] [place] [address], [facility] Urine, bacteria in sedimentOCCAbnormalNONE SEENThe Summa HealthComment on above:Order Comment: << On admission If not done in ED>>No: Do not add to previous drawPerformed By: #### 88229, 42018, 46542, 31385, 83712 ####[facility] [place] [address], [place] Urine, colorYELLOWNormalYELLOWThe [facility]ma HealthComment on above:Order Comment: << On admission If not done in ED>>No: Do not add to previous drawPerformed By: #### 43106, 19375, 11874, 63996, 89377 ####[facility] [place] [address], USAUrine, nitrite presenceNegativeNormalNEGATIVEThe [facility]ma HealthComment on above:Order Comment: << On admission If not done in ED>>No: Do not add to previous drawPerformed By: #### 17023, 14441, 72102, 07172, 08305 ####[facility] [place] [address], [facility] S[facility]THER[facility] MEXICOWBC UA0-2 Abnormal0-0The [facility] HealthComment on above:Order Comment: << On admission If not done in ED>>No: Do not add to previous draw Performed By: #### 16118, 41177, 56596, 06749, 26831 ####[facility] [place] [address], [facility] SOUTHER[facility] NEW MEXICOPOC GLUCOSE LABon 24-32-1521Xygqoyg mass xjap859 mg/xHBtvp77-618Pst [facility] HealthComment on above:Performed By: #### [id number], 75634, 80544, 12194, 05672 ####[facility] [place] [address], [facility] Glucose mass arke148 mg/nGEsvx95-143Cvx [facility] Comment on above:Performed By: #### 60243, 21318, 86851, 02200, 19282 ####[facility] [place] [address], [facility] Glucose mass uioo178 mg/bYBqgi62-107Sar [facility] Comment on above:Performed By: #### 68342, 20212, 65920, 58439, 37036 ####[facility] [place] [address], [facility] Glucose mass mylq960 mg/zUWudz61-465Dtu [facility] Comment on above:Performed By: #### 86429, 83343, 90291, 27916, 61692 ####[facility] [place] [address], [facility] BASIC METABOLIC PANELon 67-81-2438Zpaxask4.6 mg/dLNormal8.6-10.3The [facility]ma HealthComment on above:Order Comment: << On admission If not done in ED>>No: Do not add to previous drawPerformed By: #### 89855, 84007, 15791, 18144, 80847 ####[facility] [place] [address], IWYKwitlgta09 mmol/CZfw99-936Rby [facility] HealthComment on above:Order Comment: << On admission If not done in ED>>No: Do not add to previous drawPerformed By: #### 16181, 98355, 56206, 11687, 00221 ####[facility] [place] [address], UUCRX340 mmol/DDpdgby23-61Kyx [facility] Comment on above:Order Comment: << On admission If not done in ED>>No: Do not add to previous drawPerformed By: #### 22211, 15827, 48536, 94345, 04284 ####[facility] [place] [address], [place] Creatinine1.15 mg/dLNormal0.70-1.30The [facility] Comment on above:Order Comment: << On admission If not done in ED>>No: Do not add to previous drawPerformed By: #### 04878, 70336, 02376, 34478, 36504 ####[facility] [place] [address], [facility] eGFR (black)mL/min/{1.73_m2}Normal>60The [facility] Comment on above:Order Comment: << On admission If not done in ED>>No: Do not add to previous drawPerformed By: #### 28252, 04469, 86376, 73547, 00168 ####[facility] [place] [address], [facility] eGFR (non-black)mL/min/{1.73_m2}Normal>60The [facility] Comment on above:Order Comment: << On admission If not done in ED>>No: Do not add to previous drawPerformed By: #### 79590, 64384, 94191, 99394, 08472 ####[facility] [place] [address], [facility] Glucose mass exvj850 mg/yTEjjg50-381Hdd [facility] Comment on above:Order Comment: << On admission If not done in ED>>No: Do not add to previous drawPerformed By: #### 50024, 62484, 06850, 00048, 88170 ####[facility] [place] [address], [facility] Potassium molar conc3.5 mmol/LNormal3.5-5.1The [facility] HealthComment on above:Order Comment: << On admission If not done in ED>>No: Do not add to previous drawPerformed By: #### 37972, 48641, 13098, 94929, 10010 ####[facility] [place] [address], [facility] Viiqin749 mmol/CMlu825-843Hig [facility] HealthComment on above:Order Comment: << On admission If not done in ED>>No: Do not add to previous drawPerformed By: #### 39267, 20816, 11521, 08322, 99957 ####[facility] [place] [address], USAUrea akbphoxs74 mg/dLHigh7-25The [facility] HealthComment on above:Order Comment: << On admission If not done in ED>>No: Do not add to previous draw Performed By: #### 38159, 73060, 18776, 69796, 81812 ####[facility] [place] [address], [facility] GLUCOSE LABon 86-26-3964Opounzm mass pvou667 mg/tFUrdz02-506Dab [facility] HealthComment on above:Performed By: #### 07966, 42154, 34886, 67923, 74183 ####[facility] [place] [address], [place] Glucose mass ormy889 mg/eVNppr82-371Jps [facility] Comment on above:Performed By: #### 86377, 70169, 27928, 38542, 40901 ####[facility] [place] [address], [place] BASIC METABOLIC PANELon 31-11-0511Qwvxkhn7.4 mg/dLLow8.6-10.3The [facility] HealthComment on above:Order Comment: << On admission If not done in ED>>No: Do not add to previous drawPerformed By: #### 58124, 04500, 87334, 60561, 18411 ####[facility] [place] [address], EXVJzluxaiv28 mmol/XEoycyz71-081Cus [facility] HealthComment on above:Order Comment: << On admission If not done in ED>>No: Do not add to previous drawPerformed By: #### 48776, 32994, 50702, 77591, 94512 ####[facility] [place] [address], [place] CO228 mmol/VXpmajs06-96Pgl [facility] HealthComment on above: Order Comment: << On admission If not done in ED>>No: Do not add to previous drawPerformed By: #### 80170, 61043, 65385, 53277, 72874 ####[facility] [place] [address], USACreatinine0.88 mg/dLNormal0.70-1.30The [facility] HealthComment on above: Order Comment: << On admission If not done in ED>>No: Do not add to previous drawPerformed By: #### 28533, 04478, 96122, 33024, 64785 ####[facility] [place] [address], USAeGFR (black) mL/min/{1.73_m2}Normal>60The [facility] HealthComment on above:Order Comment: << On admission If not done in ED>>No: Do not add to previous drawPerformed By: #### 47524, 78548, 34961, 16562, 76206 ####[facility] [place] [address], USAeGFR (non-black)mL/min/{1.73_m2}Normal>60The [facility] Comment on above:Order Comment: << On admission If not done in ED>>No: Do not add to previous drawPerformed By: #### 91377, 78250, 77113, 41632, 90603 ####[facility] [place] [address], [place] Glucose mass hffx602 mg/oTLrsk73-914Juk [facility] Comment on above:Order Comment: << On admission If not done in ED>>No: Do not add to previous drawPerformed By: #### 07921, 03309, 02775, 53784, 62258 ####[facility] [place] [address], [place] Potassium molar conc3.8 mmol/LNormal3.5-5.1The [facility] HealthComment on above:Order Comment: << On admission If not done in ED>>No: Do not add to previous drawPerformed By: #### 74814, 08031, 16512, 23321, 01068 ####[facility] [place] [address], [facility] Zbzqnf231 mmol/PEyr496-192Hqh [facility] HealthComment on above:Order Comment: << On admission If not done in ED>>No: Do not add to previous drawPerformed By: #### 26849, 62757, 50506, 62698, 60648 ####[facility] [place] [address], [facility] MEXICOUrea bonzcckm15 mg/dLHigh7-25The [facility] HealthComment on above:Order Comment: << On admission If not done in ED>>No: Do not add to previous draw Performed By: #### 94825, 14817, 28044, 01862, 71328 ####[facility] [place] [address], [facility] MEXICOPO GLUCOSE LABon 02-10-2018Rhbeezj mass sgkj305 mg/uSOcqb25-202Nrq [facility] HealthComment on above:Performed By: #### 49077, 38056, 04462, 77501, 40687 ####[facility] [place] [address], [facility] Glucose mass kcvy561 mg/lZMosq56-333Drl [facility] Comment on above:Performed By: #### 99813, 81357, 63803, 74492, 19282 ####[facility] [place] [address], [facility] Glucose mass dwpa776 mg/wLQasm81-759Viq [facility] Comment on above:Performed By: #### 09097, 43539, 47185, 84064, 24569 ####[facility] [facility].[address] Glucose mass qufv243 mg/yOOsas54-561Mli [facility] Comment on above:Performed By: #### 74513, 99684, 72729, 94970, 69000 ####[place] [address] [facility].[address] UFH HEPARIN ASSAYon 63-68-5350PYMGSFURHEZOKF HEPARIN0.31 IU/mLNormal0.30-0.70The [facility] HealthComment on above:Result Comment: Rivaroxaban and Apixaban will interfere with the anti Xa assay used tomonitor UFH and LMWH. Performed By: #### 70326, 43262, 80330, 23161, 48684 ####[place] [address] [place] [address], [facility] MEXICOARTERIAL BLOOD GAS W/COOX on 65-57-4667GEXM EXCESS1 mmol/XStooub-6-9Fwk [facility] HealthComment on above:Performed By: #### 76045, 40225, 92699, 20586, 95023 ####[place] [address] [facility].[address] Bicarbonate (HCO3)26 mmol/JUwvzwf15-93Nxm [facility] Comment on above:Performed By: #### 38769, 65957, 75617, 10317, 64398 ####[address] CO242 oqQnBeycjn80-73Znz [facility] HealthComment on above: Performed By: #### 28322, 89404, 78749, 56285, 77357 ####[facility]COHB3 %High0-1The [facility] HealthComment on above:Performed By: #### 54264, 55979, 94376, 29441, 75733 ####[facility] [place] [address], USADELIVERY SYSTEMSHFWYNoPremier Healthe [facility] HealthComment on above:Performed By: #### 65593, 17255, 85053, 14392, 69256 ####[facility] [place] [address], LHNQJY507 %Sjhdad79-784Wsc [facility] HealthComment on above:Performed By: #### 80002, 27060, 17000, 38431, 45353 ####[facility] [place] [address], CEGNXB01.0 LPMHigh 0.5-20.0The [facility] HealthComment on above:Performed By: #### 03191, 02090, 82964, 66097, 91148 ####[facility] [place] [address], USAMETHB1.0 %Normal0.0-1.5The [facility] HealthComment on above:Performed By: #### 63280, 53917, 20122, 69606, 29093 ####[facility] [place] [address], USAO2 lyeonniaxe72.3 %Low94.0-97.0The [facility] HealthComment on above:Performed By: #### 83327, 51796, 90512, 45502, 40022 ####[facility] [place] [address], USAOxygen in arterial blood74 mm[Hg]Anf05-999Qqd [facility] HealthComment on above:Performed By: #### 65731, 55742, 59434, 07710, 22507 ####[facility] [place] [address], USApH of blood7.40 [pH]Normal7.35-7.45The [facility] HealthComment on above:Performed By: #### 34774, 02223, 25883, 09629, 67636 ####[facility] [place] [address], [place] THB9.3 g/dLLow13.9-16.3The [facility] HealthComment on above: Performed By: #### 25726, 41079, 61135, 50234, 15442 ####[facility] [place] [address], USABASIC METABOLIC PANELon 03-80-9308Tdqifsv3.3 mg/dLLow8.6-10.3The [facility] Comment on above:Order Comment: << On admission If not done in ED>>No: Do not add to previous drawPerformed By: #### 86379, 08079, 62927, 95169, 21838 ####[facility] [place] [address], [place] Upjfzvsi55 mmol/SDmzqwn48-155Neb [facility]Comment on above:Order Comment: << On admission If not done in ED>>No: Do not add to previous drawPerformed By: #### 45039, 33660, 75555, 87950, 76819 ####[facility] [place] [address], TAHWZ739 mmol/L Tbqxzh84-54Cuf [facility]Comment on above:Order Comment: << On admission If not done in ED>>No: Do not add to previous draw Performed By: #### 90061, 86848, 78153, 20464, 64769 ####[facility] [place] [address], USACreatinine0.82 mg/dLNormal 0.70-1.30The [facility] HealthComment on above:Order Comment: << On admission If not done in ED>>No: Do not add to previous drawPerformed By: #### 78622, 15356, 70049, 51943, 30511 ####[facility] [place] [address], USAeGFR (black)mL/min/{1.73_m2}Normal >60The [facility] HealthComment on above:Order Comment: << On admission If not done in ED>>No: Do not add to previous drawPerformed By: #### 16858, 59845, 74866, 87413, 63392 ####[facility] [place] [address], USAeGFR (non-black)mL/min/{1.73_m2}Normal>60The [facility]Comment on above:Order Comment: << On admission If not done in ED>>No: Do not add to previous drawPerformed By: #### 39695, 51436, 24859, 77569, 03045 ####[facility] [place] [address], USAGlucose mass tbqj849 mg/yLTbvc50-643Uvt [facility]Comment on above:Order Comment: << On admission If not done in ED>>No: Do not add to previous drawPerformed By: #### 79149, 97027, 22120, 80635, 20369 ####[facility] [place] [address], USAPotassium molar conc4.0 mmol/LNormal3.5-5.1 The [facility] HealthComment on above:Order Comment: << On admission If not done in ED>>No: Do not add to previous drawPerformed By: #### 77647, 40141, 53959, 87093, 79951 ####[facility] [place] [address], SBJWmbvjp654 mmol/UEui404-187Xbs [facility]Comment on above:Order Comment: << On admission If not done in ED>>No: Do not add to previous drawPerformed By: #### 63792, 57287, 51622, 38899, 08244 ####[facility] [place] [address], [facility] MEXICOUrea hkaefcgi90 mg/dLNormal7-25The [facility] HealthComment on above:Order Comment: << On admission If not done in ED>>No: Do not add to previous drawPerformed By: #### 93501, 53299, 71603, 92313, 06991 ####[facility] Consultationon 07-73-9565AeimhquxlpomUX#: [id number] Torsten Haywood Date of Service: 12/24/2016 Room #: 3AB [id number] Birthdate: 1955 Referring Physician: CONSULTATIONREASON FOR CONSULTATION: Possible inpatient rehab admission.CHIEF COMPLAINT: Shortness of breath.HISTORY OF PRESENT ILLNESS: The patient is a 60-year-old male with a1-week history of progressively worsening shortness of breath. [facility] due to concern for cardiac dysfunction. On cardiaccatheterization, the patient was found to h ave a severely low ejectionfraction as well as [...] No fevers, chills. He denies any chest p ain beyondincisional pain. No shortness of breath at rest. No nausea, vomiting,diarrhea. He denies constipation. He has been able to void. All otherreview of systems are negative per HPI.Physical andOccupational Therapy have seen and evaluated this patient.The patient has been fluctuating in termsof his functional ability. On12/23, he was contact [...] Nodifficulty with word finding.SKIN: Bypass site clean, dry,and intact. Chest incision was currentlydressed. We did not examine the incision down this, but there was no grossdrainage.MOOD AND AFFECT: Normal.LABORATORY DATA: Recent labs demonstrate essentiallyunremarkable BMP.Most recent CBC showed a white cell [...] Signed by:Elia Thomas M.D. 01/09/2017 08:34 A Elia Thomas M.D.Date Dict: 12/24/2016/08:38 A/Elia Thomas M.D.Date Trans: 12/24/2016 03:44 P/mmoDN_JN:[id number]: Esperanza Eaton M.D. [facility] Centerjosh...do Not Send [address] [place] [address]90AzmpugWtpPike Community Hospital GLUCOSE LABon 67-95-0260Tcnttup mass yeko471 mg/jWDwdq13-748Afa [facility] HealthComment on above:Performed By: #### 12173, 46782, 19682, 00435, 21377 ####[facility] [place] [address], USAGlucose mass sbru119 mg/vIUrea14-780Qbx [facility] HealthComment on above:Performed By: #### 72744, 56161, 53647, 62894, 39699 ####[facility] [place] [address], USAGlucose mass rcfc880 mg/iDXeyy56-830Sjj [facility] HealthComment on above:Performed By: #### 34625, 27521, 23278, 71724, 85674 ####[place] [id number] [facility].[address] Glucose mass dloh852 mg/uVLgaq67-789Twa [facility] Comment on above:Performed By: #### 20278, 35419, 91746, 72758, 49297 ####[address] UFH HEPARIN ASSAYon 51-46-2963NVKXPZOGAISIMQ HEPARIN0.33 IU/mLNormal0.30-0.70The [facility] HealthComment on above:Result Comment: Rivaroxaban and Apixaban will interfere with the anti Xa assay used tomonitor UFH and LMWH. Performed By: #### 84947, 43624, 55630, 98447, 80227 ####[place] [address] [address] StreetUNFRACTIONATED HEPARIN0.18 IU/mLLow0.30-0.70The [facility] HealthComment on above:Result Comment: Rivaroxaban and Apixaban will interfere with the anti Xa assay used tomonitor UFH and LMWH.Performed By: #### 61834, 22892, 60113, 33917, 93313 ####[address] UNFRACTIONATED HEPARIN0.37 IU/mLNormal0.30-0.70The [facility] HealthComment on above:Result Comment: Rivaroxaban and Apixaban will interfere with the anti Xa assay used tomonitor UFH and LMWH.Performed By: #### 36288, 61591, 35940, 71175, 05345 ####[address] [place] [address], [facility] MEXICOARTERIAL BLOOD GAS W/COOXon 08-81-3960ACAQ EXCESS7 mmol/CIwot-1-5Fus [facility] HealthComment on above:Performed By: #### 74737, 66679, 30808, 80158, 76416 ####[facility] [place] [address], USABicarbonate (HCO3)32 mmol/L Critically hfwp45-77Vfx [facility] HealthComment on above: Performed By: #### 20586, 95736, 82505, 72927, 70900 ####[facility] [place] [address], PKHXT704 rvZvGrfp17-96Mpb [facility] HealthComment on above:Performed By: #### 57293, 38926, 08690, 98658, 25518 ####[facility] [place] [address], USACOHB2 %High0-1The [facility] Comment on above:Performed By: #### 75723, 15706, 87542, 63330, 42145 ####[facility] [place] [address], [place] DELIVERY SYSTEMSBIPAP [address] [place], [place] [address]Comment on above:Performed By: #### 05329, 32202, 69445, 10812, 83234 ####[facility] [place] [address], QAIOOR67.0 LPMNormal 0.5-20.0The [facility] HealthComment on above:Performed By: #### 85443, 83569, 88917, 99589, 49156 ####[facility] [place] [address], USAMETHB1.0 %Normal0.0-1.5The [facility] HealthComment on above:Performed By: #### 78972, 08910, 98124, 33605, 40741 ####[facility] [place] [address], USAMODALITYBIPAP /6NoMemorial Health System Selby General HospitalComment on above:Performed By: #### 43047, 88039, 36094, 02723, 97986 ####[facility] [place] [address], USAO2 hflykerdor72.2 %Kwkmtf10.0-97.0The [facility] HealthComment on above:Performed By: #### 58084, 56255, 13316, 41971, 94613 ####[facility] [place] [address], [place] Oxygen in arterial mm[Hg]Critically ysev53-705Gqt [facility] HealthComment on above:Performed By: #### 29631, 67092, 04110, 70175, 74114 ####[facility] [place] [address], USAPEEP6.0 XGX69EjmkdyEcfMemorial Health System Selby General HospitalComment on above:Performed By: #### 63594, 80538, 47756, 10982, 42376 ####[facility] [place] [address], USApH of blood7.41 [pH]Normal7.35-7.45The [facility] HealthComment on above: Performed By: #### 29044, 50390, 83719, 44454, 38428 ####[facility] [place] [address], USATHB8.8 g/dLLow13.9-16.3The [facility] HealthComment on above:Performed By: #### 79780, 78933, 95574, 61286, 04005 ####[facility] [place] [address], USAARTERIAL BLOOD GAS WITH ICAon 49-61-9998MWLR EXCESS9 mmol/LAmgx-7-8Kbv [facility] HealthComment on above:Performed By: #### 14920, 94741, 38563, 11882, 29563 ####[facility] [place] [address], USABicarbonate (HCO3)35 mmol/L Critically jowz31-91Gmm [facility] HealthComment on above: Performed By: #### 39400, 14705, 78922, 33687, 45467 ####[facility] [place] [address], XUVEG700 cjPaEnni90-20Tjk [facility] HealthComment on above:Performed By: #### 87800, 51507, 18286, 93898, 49406 ####[facility] [place] [address], USADELIVERY SYSTEMSHIGH FLOW NASAL CANNULANormalThe [facility] HealthComment on above:Performed By: #### 54622, 84637, 64663, 24611, 17314 ####[facility] [place] [address], TRMCPY020 %Qcdbae59-803Iuy [facility] HealthComment on above:Performed By: #### 44754, 32582, 13157, 70825, 27089 ####[facility] [place] [address], [place] IONIZED CALCIUM1.10 mmol/LLow1.13-1.32The [facility] Comment on above:Performed By: #### 33344, 15559, 36622, 47112, 54908 ####[facility] [place] [address], [place] LPM30.0 LPMHigh0.5-20.0The [facility] HealthComment on above: Performed By: #### 03747, 50306, 46989, 47775, 85620 ####[facility] [place] [address], USAO2 twnuwntgpk81.3 %Low 94.0-97.0The [facility] HealthComment on above:Performed By: #### 69418, 28451, 52158, 25424, 27024 ####[facility] [place] [address], USAOxygen in arterial blood61 mm[Hg] Lym55-653Oqi [facility] HealthComment on above:Performed By: #### 55185, 81620, 18461, 91069, 83743 ####[facility] [place] [address], USApH of blood7.42 [pH]Normal 7.35-7.45The [facility] HealthComment on above:Performed By: #### 88614, 67062, 47741, 40398, 61982 ####[facility] [place] [address], USABASE EXCESS3 mmol/FKlfo-0-0Gmu [facility] HealthComment on above:Performed By: #### 84223, 77389, 79668, 49196, 30483 ####[facility] [place] [address], USABicarbonate (HCO3)28 mmol/LCyfp53-26Rkh [facility] HealthComment on above:Performed By: #### 02012, 26935, 86146, 15284, 99481 ####[facility] [place] [address], POKME943 cqXuEpnkdf41-26Xqr [facility] HealthComment on above:Performed By: #### 53198, 49922, 44136, 58541, 84791 ####[facility] [place] [address], USADELIVERY SYSTEMS HIGH FLOW NASAL CANNULANormalThe [facility] HealthComment on above:Performed By: #### 96333, 12826, 63844, 32515, 74581 ####[facility] [place] [address], PDXDEC313 %Normal 21-100The [facility] HealthComment on above:Performed By: #### 30057, 82614, 20303, 43451, 73586 ####[facility] [place] [address], USAIONIZED CALCIUM0.95 mmol/LLow1.13-1.32The [facility] HealthComment on above:Performed By: #### 78777, 34321, 75391, 90145, 23254 ####[facility] [place] [address], PNHJHM34.0 LPMHigh0.5-20.0The [facility] HealthComment on above:Performed By: #### 41241, 68250, 39095, 32595, 35368 ####[facility] [place] [address], [facility] MEXICOO2 urkjmwybpr33.3 %Pivdau50.0-97.0The [facility] HealthComment on above:Performed By: #### 94026, 22967, 09258, 01758, 75619 ####[facility] [place] [address], [facility] Oxygen in arterial blood69 mm[Hg]Baq40-781Evh [facility] HealthComment on above:Performed By: #### 81624, 83917, 97284, 66741, 69827 ####[facility] [place] [address], [facility] pH of blood7.44 [pH]Normal7.35-7.45The [facility] Comment on above:Performed By: #### 47194, 51939, 34111, 75030, 10100 ####[place] [address] [place] [address], [facility] BASIC METABOLIC PANELon 83-49-1942Vkhvlrh0.1 mg/dLLow8.6-10.3The [facility] HealthComment on above:Order Comment: << On admission If not done in ED>>No: Do not add to previous drawPerformed By: #### 46170, 77949, 24197, 95467, 06354 ####[facility] [place] [address], IBTRmfpgbar67 mmol/TRlx16-506Mmh [facility] Comment on above:Order Comment: << On admission If not done in ED>>No: Do not add to previous drawPerformed By: #### 01876, 13966, 54239, 33608, 56429 ####[facility] [place] [address], [place] CO231 mmol/HInzhnh66-80Aka [facility] HealthComment on above: Order Comment: << On admission If not done in ED>>No: Do not add to previous drawPerformed By: #### 09755, 15580, 63784, 28719, 20289 ####[facility] [place] [address], USACreatinine0.83 mg/dLNormal0.70-1.30The [facility] HealthComment on above: Order Comment: << On admission If not done in ED>>No: Do not add to previous drawPerformed By: #### 31080, 79217, 88759, 03471, 19368 ####[facility] [place] [address], USAeGFR (black) mL/min/{1.73_m2}Normal>60The [facility] HealthComment on above:Order Comment: << On admission If not done in ED>>No: Do not add to previous drawPerformed By: #### 41027, 59042, 21844, 23495, 26708 ####[facility] [place] [address], USAeGFR (non-black)mL/min/{1.73_m2}Normal>60The [facility] Comment on above:Order Comment: << On admission If not done in ED>>No: Do not add to previous drawPerformed By: #### 02872, 19350, 65540, 11984, 71014 ####[facility] [place] [address], [facility] Glucose mass qrrp760 mg/mFFbis20-662Kka [facility] Comment on above:Order Comment: << On admission If not done in ED>>No: Do not add to previous drawPerformed By: #### 35860, 44574, 34321, 19722, 08456 ####[facility] [place] [address], [facility] Potassium molar conc3.6 mmol/LNormal3.5-5.1The [facility] HealthComment on above:Order Comment: << On admission If not done in ED>>No: Do not add to previous drawPerformed By: #### 90798, 52202, 17685, 33291, 23205 ####[facility] [place] [address], [facility] Fwwrpz175 mmol/RZwz580-611Dum [facility] HealthComment on above:Order Comment: << On admission If not done in ED>>No: Do not add to previous drawPerformed By: #### 67084, 96470, 21899, 05540, 37518 ####[facility] [place] [address], USAUrea qcygroxz17 mg/dLNormal7-25The Summa HealthComment on above:Order Comment: << On admission If not done in ED>>No: Do not add to previous draw Performed By: #### 13202, 96406, 74843, 07134, 01620 ####[facility] [place] [address], USACalcium7.7 mg/dLLow 8.6-10.3The Summa HealthComment on above:Order Comment: << On admission If not done in ED>>No: Do not add to previous drawPerformed By: #### 57467, 18839, 94133, 39807, 91017 ####[facility] [place] [address], SPLWalxepdm29 mmol/HIlvhuq37-480Hlj [facility] HealthComment on above:Order Comment: << On admission If not done in ED>>No: Do not add to previous drawPerformed By: #### 54976, 70349, 24391, 89514, 66404 ####[facility] [place] [address], HDPMK852 mmol/SKeyann31-64Obt [facility] HealthComment on above:Order Comment: << On admission If not done in ED>>No: Do not add to previous drawPerformed By: #### 33223, 39431, 64708, 60197, 71016 ####[facility] [place] [address], USACreatinine0.81 mg/dLNormal0.70-1.30The [facility] HealthComment on above:Order Comment: << On admission If not done in ED>>No: Do not add to previous drawPerformed By: #### 77562, 80820, 88920, 05580, 44997 ####[facility] [place] [address], [place] Glucose mass gdta655 mg/iWNuru53-437Kbj [facility] Comment on above:Order Comment: << On admission If not done in ED>>No: Do not add to previous drawPerformed By: #### 49451, 96858, 35541, 20111, 98341 ####[facility] [place] [address], [place] Potassium molar conc4.2 mmol/LNormal3.5-5.1The [facility] HealthComment on above:Order Comment: << On admission If not done in ED>>No: Do not add to previous drawPerformed By: #### 67474, 53061, 45939, 20260, 16654 ####[facility] [place] [address], [facility] Urea vylgmiib01 mg/dLNormal7-25The [facility] HealthComment on above:Order Comment: << On admission If not done in ED>>No: Do not add to previous drawPerformed By: #### 62181, 93463, 69644, 44863, 47359 ####[facility] [place] [address], [facility] MEXICOCARDIAC MAGNESIUM BLOODon 45-20-8754Jjvzjgwtz0.1 mg/dLNormal1.9-2.7The [facility]ma HealthComment on above:Performed By: #### 66841, 80558, 49765, 13690, 53372 ####[facility] [place] [address], [facility] MEXICOMagnesium2.2 mg/dLNormal1.9-2.7The [facility] HealthComment on above:Performed By: #### 32703, 96578, 12277, 06890, 44139 ####[facility] [place] [address], [facility] CBC COMPLETE BLOOD COUNTon 25-45-2965Tqcbqtsvjvp distribution width Auto Ratio (RBC)14.1 %Ratuwa42.5-16.9The [facility] HealthComment on above:Order Comment: << On admission If not done in ED>>No: Do not add to previous drawPerformed By: #### 42941, 95133, 92602, 31954, 60073 ####[facility] [place] [address], [facility] MEXICOErythrocytes (RBC)2.57 mill/un8Vuq3.30-5.90The [facility] HealthComment on above:Order Comment: << On admission If not done in ED>>No: Do not add to previous drawPerformed By: #### 89104, 69764, 54149, 22561, 32476 ####[facility] [place] [address], [facility] MEXICOHematocrit (HCT)25.9 %Low39.0-55.0The [facility]ma HealthComment on above: Order Comment: << On admission If not done in ED>>No: Do not add to previous drawPerformed By: #### 05955, 28290, 23306, 18225, 85294 ####[facility] [place] [address], [facility] MEXICOHemoglobin mass conc (Bld)8.5 g/dLLow13.9-16.3The [facility] HealthComment on above:Order Comment: << On admission If not done in ED>>No: Do not add to previous drawPerformed By: #### 63440, 12644, 43821, 34731, 93322 ####[facility] [place] [address], DHCXBD27.1 pgHigh 24.0-32.0The [facility] HealthComment on above:Order Comment: << On admission If not done in ED>>No: Do not add to previous drawPerformed By: #### 51458, 58833, 60276, 23113, 71926 ####[facility] [place] [address], [facility] MEXICOMCHC mass conc (RBC)32.8 g/dL Xybpwd45.0-36.0The [facility] HealthComment on above:Order Comment: << On admission If not done in ED>>No: Do not add to previous draw Performed By: #### 13543, 27305, 89425, 17465, 90773 ####[facility] [place] [address], VEDBUS200.0 qVZqdr46.0-100.0 The [facility] HealthComment on above:Order Comment: << On admission If not done in ED>>No: Do not add to previous drawPerformed By: #### 19689, 03064, 43526, 54800, 13198 ####[facility] [place] [address], USAPLAT BLF738 Thou/gx5Lzawki405-836Sek [facility] HealthComment on above:Order Comment: << On admission If not done in ED>>No: Do not add to previous drawPerformed By: #### 34449, 48979, 83607, 78261, 74476 ####[facility] [place] [address], [facility] MEXICOWBC (Leukocytes)21.3 Thou/mp6Bmce9.0-10.0The [facility] HealthComment on above:Order Comment: << On admission If not done in ED>>No: Do not add to previous drawPerformed By: #### 29520, 53911, 25332, 49693, 61789 ####[facility] [place] [address], USAMAGNESIUM BLOODon 89-31-7863Lwlxnwqwn1.7 mg/dLLow1.9-2.7The [facility] HealthComment on above:Performed By: #### 77642, 33897, 74149, 89426, 34990 ####[facility] [place] [address], USAPOC GLUCOSE LABon 12-23-2016 Glucose mass zwjg392 mg/fXNgru59-412Hqn [facility] Comment on above:Performed By: #### 88472, 42345, 82464, 17712, 64930 ####[facility] [place] [address], [facility] Glucose mass kmag762 mg/oQTcou75-342Xda [facility] Comment on above:Performed By: #### 76456, 01753, 16457, 35087, 53797 ####[facility] [place] [address], [facility] Glucose mass csyo342 mg/jEMlsr74-228Zbl [facility] Comment on above:Performed By: #### 68667, 72152, 19657, 86455, 05581 ####[facility] [place] [address], [facility] Glucose mass gnvw323 mg/qHBemj09-523Axj [facility] Comment on above:Performed By: #### 98681, 43349, 80005, 71659, 77546 ####[facility] [place] [address], [facility] Glucose mass lxnr918 mg/cWPozd49-919Jwk [facility] Comment on above:Performed By: #### 45673, 80427, 81601, 74280, 23007 ####[facility] [place] [address], [facility] POTASSIUM BLOODon 38-97-6118Geunkzuzm molar conc4.1 mmol/LNormal3.5-5.1The [facility] HealthComment on above:Order Comment: << On admission If not done in ED>>No: Do not add to previous drawPerformed By: #### 75831, 37904, 99670, 36822, 41534 ####[facility] [place] [address], [facility] MEXICOUFH HEPARIN ASSAYon 65-54-4027YVGXWMHOSFXNWA HEPARIN0.33 IU/mLNormal0.30-0.70The [facility] HealthComment on above:Result Comment: Rivaroxaban and Apixaban will interfere with the anti Xa assay used tomonitor UFH and LMWH.Performed By: #### 63876, 07770, 53750, 37090, 48473 ####[facility] [place] [address], [facility] MEXICOUNFRACTIONATED HEPARIN0.32 IU/mLNormal0.30-0.70The [facility] HealthComment on above:Result Comment: Rivaroxaban and Apixaban will interfere with the anti Xa assay used tomonitor UFH and LMWH.Performed By: #### 91093, 76951, 50263, 35707, 46410 ####[facility] [place] [address], [facility] MEXICOUNFRACTIONATED HEPARIN0.20 IU/mL Low0.30-0.70The [facility] HealthComment on above:Result Comment: Rivaroxaban and Apixaban will interfere with the anti Xa assay used tomonitor UFH and LMWH.Performed By: #### 89200, 68394, 16468, 40799, 71655 ####[facility] [place] [address], [facility] UNFRACTIONATED HEPARIN0.47 IU/mLNormal0.30-0.70The [facility] HealthComment on above:Result Comment: Rivaroxaban and Apixaban will interfere with the anti Xa assay used tomonitor UFH and LMWH.Performed By: #### 99725, 07108, 25448, 13973, 48193 ####[facility] [place] [address], [facility] MEXICOAPTTon 40-59-3485tGUO00.4 sHigh25.0-35.0The [facility] HealthComment on above:Order Comment: << On admission If not done in ED>>No: Do not add to previous drawResult Comment: ALL RESULTS MUST BE INTERPRETED WITH RESPECT TO BLOOD DRAWING ARTIFACTOR DILUTION ERROR OF ANTICOAGULANT AT THE TIME OF SAMPLING.THE APTT SHOULD NOT BE USED TO MONITOR UNFRACTIONATED HEPARIN THERAPY, THIS LABORATORY NO LONGER HAS AN ESTABLISHED THERAPEUTIC RANGE BASEDON THE APTT. IT IS RECOMMENDED THAT THE UFH - HEPARIN ASSAY (ANTI-XAACTIVITY) BE USED FOR THIS PURPOSE.Performed By: #### 07886, 95347, 89342, 02063, 65896 ####[facility] [place] [address], USAARTERIAL BLOOD GAS W/COOXon 79-22-8378PTZR EXCESS9 mmol/EZoea-4-1Gbg [facility] HealthComment on above:Performed By: #### 57583, 61515, 15242, 13846, 64334 ####[facility] [place] [address], USABicarbonate (HCO3)33 mmol/L Critically eznu02-78Vfi [facility] HealthComment on above: Performed By: #### 20378, 44192, 35505, 30822, 07254 ####[facility] [place] [address], DNTBQ846 waJeMdtb71-00Pzu [facility] HealthComment on above:Performed By: #### 33642, 30811, 22255, 73145, 80857 ####[facility] [place] [address], USACOHB1 %Normal0-1The [facility]ma HealthComment on above:Performed By: #### 38446, 83489, 83568, 76322, 82292 ####[facility] [place] [address], [place] DELIVERY SYSTEMSOTHERNormalThe [facility]ma HealthComment on above:Performed By: #### 81429, 04758, 19699, 30095, 07749 ####[facility] [place] [address], RJCGPF553 %Normal 21-100The [facility] HealthComment on above:Performed By: #### 52236, 08544, 84775, 40147, 16910 ####[facility] [place] [address], LLYOTM08.0 LPMHigh0.5-20.0The [facility] HealthComment on above:Performed By: #### 01917, 39290, 27970, 75053, 96205 ####[facility] [place] [address], USAMETHB1.1 %Normal0.0-1.5The [facility] Comment on above:Performed By: #### 43742, 14713, 43987, 45612, 43036 ####[facility] [place] [address], [place] O2 caqphqtmww48.5 %Dqzurt02.0-97.0The [facility] HealthComment on above:Performed By: #### 61343, 07079, 73538, 29052, 44815 ####[facility] [place] [address], USAOxygen in arterial blood78 mm[Hg]Rmjlvx01-389Aka [facility] HealthComment on above:Performed By: #### 60365, 38477, 28282, 98026, 60612 ####[facility] [place] [address], USApH of blood7.46 [pH]High7.35-7.45The [facility] HealthComment on above: Performed By: #### 64682, 46582, 90225, 59775, 26965 ####[facility] [place] [address], USATHB9.5 g/dLLow13.9-16.3The [facility] HealthComment on above:Performed By: #### 08847, 68671, 18027, 16809, 47780 ####[facility] [place] [address], USAARTERIAL BLOOD GAS WITH ICAon 19-44-0168EOAE ISNANE98 mmol/HDklv-6-1Txm [facility] HealthComment on above:Performed By: #### 43353, 80552, 77863, 38808, 35737 ####[facility] [place] [address], USABicarbonate (HCO3)35 mmol/L Critically oqew74-34Wvl [facility] HealthComment on above: Performed By: #### 65524, 60904, 56506, 52901, 34416 ####[facility] [place] [address], JGWEF921 vdKtBvgn41-42Igl [facility] HealthComment on above:Performed By: #### 43410, 51072, 79418, 10260, 73416 ####[facility] [place] [address], USADELIVERY SYSTEMSHIGH FLOW NASAL CANNULANormalThe [facility]ma HealthComment on above:Performed By: #### 31376, 48410, 15449, 80681, 75084 ####[facility] [place] [address], KQLXCE451 %Grjqqj87-367Hng [facility] HealthComment on above:Performed By: #### 21366, 82044, 81921, 30381, 45329 ####[facility] [place] [address], [facility] IONIZED CALCIUM1.11 mmol/LLow1.13-1.32The [facility] Comment on above:Performed By: #### 93141, 96970, 28319, 06261, 95903 ####[facility] [place] [address], [facility] LPM35.0 LPMHigh0.5-20.0The [facility] HealthComment on above: Performed By: #### 76165, 71349, 18781, 76500, 96945 ####[facility] [place] [address], [facility] MEXICOO2 ptplumnrzk52.1 %Normal 94.0-97.0The [facility] HealthComment on above:Performed By: #### 13364, 01267, 13908, 39196, 92856 ####[facility] [place] [address], USAOxygen in arterial xceit802 mm[Hg] Nohphi14-636Fmz [facility] HealthComment on above:Performed By: #### 43545, 19719, 94511, 59394, 92683 ####[facility] [place] [address], USApH of blood7.43 [pH]Normal 7.35-7.45The [facility] HealthComment on above:Performed By: #### 83388, 42888, 10654, 09098, 55649 ####[facility] [place] [address], USABASE EXCESS5 mmol/JTdxe-0-4Ksl [facility] HealthComment on above:Performed By: #### 96089, 58598, 03529, 94870, 96430 ####[facility] [place] [address], USABicarbonate (HCO3)31 mmol/LCritically fvyy83-04Rku [facility] HealthComment on above:Performed By: #### 52498, 74395, 24208, 63361, 16449 ####[facility] [place] [address], CTHWT514 iyUhTcli49-42Lju [facility] HealthComment on above:Performed By: #### 75928, 85545, 93957, 82746, 27169 ####[facility] [place] [address], [place] DELIVERY SYSTEMSMercy Health Lorain HospitalComment on above:Performed By: #### 90753, 68557, 80401, 94817, 46685 ####[facility] [place] [address], TIHDRC643 %Normal 21-100The [facility] HealthComment on above:Performed By: #### 23975, 08484, 13858, 67687, 90208 ####[facility] [place] [address], USAIONIZED CALCIUM1.14 mmol/LNormal1.13-1.32The [facility] HealthComment on above:Performed By: #### 71969, 82157, 37407, 40369, 78511 ####[facility] [place] [address], IDXNPJ09.0 LPMHigh0.5-20.0The [facility] HealthComment on above:Performed By: #### 24519, 41574, 40637, 02427, 10951 ####[facility] [address], [facility] MEXICOO2 dfjeilizfk30.5 %Crtofh85.0-97.0The [facility] HealthComment on above:Performed By: #### 82361, 97508, 89681, 14497, 42215 ####[facility] [place] [address], [facility] Oxygen in arterial blood88 mm[Hg]Ugshiz48-476Vbk [facility] HealthComment on above:Performed By: #### 57790, 90316, 63910, 41097, 18334 ####[address] [place] [address], [facility] pH of blood7.37 [pH]Normal7.35-7.45The [facility] Comment on above:Performed By: #### 31908, 39995, 47973, 34195, 23299 ####[address] [place] [address], [facility] BASIC METABOLIC PANELon 30-49-5888Uaqvzjy5.0 mg/dLLow8.6-10.3The [facility] HealthComment on above:Order Comment: << On admission If not done in ED>>No: Do not add to previous drawPerformed By: #### 13618, 84392, 51398, 43874, 41201 ####[facility] [place] [address], IRBRcgmcbdd46 mmol/CDmwccp05-323Wwi [facility] HealthComment on above:Order Comment: << On admission If not done in ED>>No: Do not add to previous drawPerformed By: #### 83673, 98954, 84974, 19451, 11185 ####[facility] [place] [address], [place] CO229 mmol/MZemfvx14-95Ups [facility] HealthComment on above: Order Comment: << On admission If not done in ED>>No: Do not add to previous drawPerformed By: #### 64210, 91534, 88486, 64899, 07888 ####[facility] [place] [address], USACreatinine0.80 mg/dLNormal0.70-1.30The [facility] HealthComment on above: Order Comment: << On admission If not done in ED>>No: Do not add to previous drawPerformed By: #### 32885, 84633, 27468, 19785, 34363 ####[facility] [place] [address], USAeGFR (black) mL/min/{1.73_m2}Normal>60The [facility] HealthComment on above:Order Comment: << On admission If not done in ED>>No: Do not add to previous drawPerformed By: #### 70459, 36450, 22466, 85832, 00336 ####[facility] [place] [address], USAeGFR (non-black)mL/min/{1.73_m2}Normal>60The [facility] Comment on above:Order Comment: << On admission If not done in ED>>No: Do not add to previous drawPerformed By: #### 24073, 93245, 53614, 73724, 75631 ####[facility] [place] [address], [facility] Glucose mass axsw952 mg/lXScqg70-236Cdb [facility] Comment on above:Order Comment: << On admission If not done in ED>>No: Do not add to previous drawPerformed By: #### 75449, 61842, 68632, 44722, 00536 ####[facility] [place] [address], [facility] Potassium molar conc4.2 mmol/LNormal3.5-5.1The [facility] HealthComment on above:Order Comment: << On admission If not done in ED>>No: Do not add to previous drawPerformed By: #### 63776, 33491, 22872, 36275, 80635 ####[facility] [place] [address], [facility] Xzntou624 mmol/QLgz332-354Dny [facility] HealthComment on above:Order Comment: << On admission If not done in ED>>No: Do not add to previous drawPerformed By: #### 52737, 50323, 94722, 98135, 48042 ####[facility] [place] [address], [facility] MEXICOUrea wozghjht49 mg/dLNormal7-25The [facility] HealthComment on above:Order Comment: << On admission If not done in ED>>No: Do not add to previous draw Performed By: #### 25402, 35157, 68532, 86383, 42793 ####[facility] [place] [address], [facility] MEXICOCBC COMPLETE BLOOD COUNTon 84-36-1618Erqmgbgutkp distribution width Auto Ratio (RBC)13.6 %Xdcvfc89.5-16.9 The [facility] HealthComment on above:Order Comment: << On admission If not done in ED>>No: Do not add to previous drawPerformed By: #### 80638, 13875, 50076, 82080, 22505 ####[facility] [place] [address], [facility] MEXICOErythrocytes (RBC)2.85 mill/pa7Pev8.30-5.90 The [facility] HealthComment on above:Order Comment: << On admission If not done in ED>>No: Do not add to previous drawPerformed By: #### 07277, 40217, 78375, 02801, 11918 ####[facility] [place] [address], [facility] MEXICOHematocrit (HCT)28.6 %Low39.0-55.0The [facility] HealthComment on above:Order Comment: << On admission If not done in ED>>No: Do not add to previous drawPerformed By: #### 18486, 44951, 13656, 49034, 00203 ####[facility] [place] [address], [facility] MEXICOHemoglobin mass conc (Bld)9.5 g/dLLow 13.9-16.3The [facility] HealthComment on above:Order Comment: << On admission If not done in ED>>No: Do not add to previous drawPerformed By: #### 78804, 73118, 98962, 06450, 60248 ####[facility] [place] [address], IDHVZY73.3 ouKmhh16.0-32.0The [facility] HealthComment on above:Order Comment: << On admission If not done in ED>>No: Do not add to previous drawPerformed By: #### 86081, 85293, 31887, 99399, 62665 ####[facility] [place] [address], [facility] MEXICOMCHC mass conc (RBC)33.2 g/vJZbdifr29.0-36.0 The [facility] HealthComment on above:Order Comment: << On admission If not done in ED>>No: Do not add to previous drawPerformed By: #### 97156, 39989, 88903, 34632, 99783 ####[facility] [place] [address], FVJSWU746.4 qGAxgp26.0-100.0The [facility] HealthComment on above:Order Comment: << On admission If not done in ED>>No: Do not add to previous drawPerformed By: #### 17435, 16186, 57835, 53638, 71325 ####[facility] [place], [place] [address]PLAT [id number] Thou/no5Uzhnmm747-521Ofp [facility] HealthComment on above:Order Comment: << On admission If not done in ED>>No: Do not add to previous drawPerformed By: #### 83261, 80876, 52205, 49784, 20063 ####[address] WBC (Leukocytes)23.1 Thou/dp0Pods8.0-10.0The [facility] Comment on above:Order Comment: << On admission If not done in ED>>No: Do not add to previous drawPerformed By: #### 27608, 28996, 32308, 74071, 49838 ####[address] CHEST W CONTRASTon [id number] CHEST W CONTRASTUnParma Community General HospitalDepartment of Wgsymehsg[address] [place] [address] [id number] Patien t Name: TORSTEN HAYWOOD : 1955Sex: MAge: Race: WhiteMRN: [id number]. Location: [id number]: IVisit #: [id number] Date: 12/22/2016 9:55:00 AMCompleted Date: 12/22/2016 11:58 AMRequesting Provider: ALESHA KAUR Attending Provider: TORSTEN YEPEZ Report Copy To: Signs & Symptoms: Fluid CollectionHistory: Patient history not availableComments: R/O InfiltratesExam: CT CHEST W CONTRASTAccession #: [id number] ======SIGNS AND SYMPTOMS: Fluid Collection Mid chest pain [...] is enlarged. There are postsurgical changes from coronaryartery bypass grafting. Extensive coronary artery calcifications are noted. The trachea and bronchiare unremarkable. There is bibasilar atelectasis with small pleural effusions, left greater than right. Given the suboptimal degree of contrast opacification there is no central pulmonary embolism jez ntified. Sternotomy wires are intact. There are no aggressive osseous lesions or acute fractures. The esophagus is unremarkable. Images of the upper abdomen including cholecystectomy clips. IMPRESSION: 1. Expected postsurgical changes following coronary artery bypass grafting with mediastinal drains in place and no mediastinal fluid collections identified. 2. Bibasilar atelectasis and small pleural effusions, left greater than right. Electronically signed by:Obdulio Moraes M.D.. Transcribed by: [id number], User Resident: Electronically Signed by: OBDULIO MORAES @ 12/22/2016 12:29 PMNormalThe Summa HealthComment on above:Order Comment: << On admission If not done in ED>>No: Do not add to previous drawMAGNESIUM BLOODon 80-56-9509Kwglfwylo1.9 mg/dLNormal1.9-2.7The [facility]ma HealthComment on above:Order Comment: << On admission If not done in ED>>No: Do not add to previous draw Performed By: #### 65763, 57894, 42058, 12452, 56148 ####[facility] [place] [address], [facility] MEXICOPOC GLUCOSE LABon 16-93-7409Akiqewy mass qnli407 mg/nDEbdj86-298Itc [facility] HealthComment on above:Performed By: #### 42943, 70320, 04122, 37224, 55663 ####[facility] [place] [address], [facility] Glucose mass jgjz887 mg/yFLwfu43-329Tet [facility] Comment on above:Performed By: #### 28515, 74106, 62648, 00319, 66695 ####[address] [place] [address], [facility] PORTABLE CHEST 1 VIEWon [id number] CHEST 1 VIEWUnParma Community General HospitalDepartment of Cfyohxqoa9935 [place] [id number] Patien t Name: TORSTEN HAYWOOD DOB: 1955Sex: MAge: Race: WhiteMRN: [id number]. Location: [id number]: IVisit #: [id number] Date: 12/22/2016 5:00:00 AMCompleted Date: 12/22/2016 08:33 AMRequesting Provider: GIOVANY FARIAS Attending Provider: TORSTEN YEPEZ Report Copy To: Signs & Symptoms: O2 DesaturationHistory: Patient history not availableComments: R/O EffusionExam: PORTABLE CHEST 1 VIEWAccession #: [id number] ========PORTABLE CHEST 1 VIEW 12/22/2016 8:33 AM EDT SIGNS AND SYMPTOMS: O2 Desaturation TECHNOLOGIST COMMENTS: shortness of breath QUESTION FOR THE RADIOLOGIST: R/O Effusion PROTOCOL: AP(PA) view wasobtained. COMPARISON: December 20 FINDINGS: The heart is enlarged. This is accentuated by AP techni que and poor inspiration. Sternal wires are intact. The right lung is clear. Retrocardiac and lingular infiltrate cannot be excluded. There may be a small left effusion as well. Lateral view would behelpful for further assessment. IMPRESSION: Lingular airspace disease. Small left effusion with cardiomegaly consistent with CHF. Findings are consistent with CHF and pneumonia. Electronically signedby:Rayshawn Hall. Transcribed by: [email or web address], User Resident: Electronically Signed by: RAYSHAWN HALL @ 12/22/2016 02:58 PMNormal The Summa HealthComment on above:Order Comment: << On admission If not done in ED>>No: Do not add to previous drawPROTHROMBIN TIMEon 45-00-0406RJJ Coag RelTime (PPP)1.25 {INR}High0.91-1.16The Summa HealthComment on above:Order Comment: << On admission If not done in ED>>No: Do not add to previous drawResult Comment: ACCCP RECOMMENDED INR FOR WARFARIN THERAPY CONDITION INRPROPHYLAXIS OF VENOUS THROMBOSIS 2-3(HIGH-RISK SURGERY)TREATMENT OF VENOUS THROMBOSIS 2-3TREATMENT OF PULMONARY EMBOLISM 2-3PREVENTION OF SYSTEMIC EMBOLISM: 2-3 ACUTE MYOCARDIAL INFARCTION TISSUE HEART VALVES VALVULAR HEART DISEASE ATRIAL FIBRILLATION RECURRENT SYSTEMIC EMBOLISMMECHANICAL HEART VALVE 2.5-3.5 FROM: ORAL ANTICOAGULANTS. MECHANISM OF ACTION, CLINICALEFFECTIVENESS, AND OPTIMAL THERAPEU TIC RANGE. [id number];108:231S-246S.Performed By: #### 23897, 63970, 45607, 60762, 37858 ####[facility] [place] [address], [facility] MEXICOProthrombin time (PT) Coag time (PPP)15.8 sHigh12.3-14.8The Summa HealthComment on above:Order Comment: << On admission If not done in ED>>No: Do not add to previous drawResult Comment: ALL RESULTS MUST BE INTERPRETED WITH RESPECT TO BLOOD DRAWING ARTIFACTOR DILUTION ER ROR OF ANTICOAGULANT AT THE TIME OF SAMPLING.Performed By: #### 90410, 45811, 97085, 62768, 61446 ####[facility] [place] [address], USATYPE AND SCREENon 65-69-1439KVT INTERPRETATIONBNormal The Summa HealthComment on above:Performed By: #### 22428, 61544, 82569, 17391, 70024 ####[facility] [place] [address], USAANTIBODY SCREENNegativePremier Health Miami Valley HospitalComment on above:Performed By: #### 72821, 23938, 45835, 30180, 90620 ####[facility] [place] [address], USARH INTERPRETATIONPositivePremier Health Miami Valley HospitalComment on above:Performed By: #### 40970, 28449, 37989, 37521, 73568 ####[facility] [place] [address], [place] UFH HEPARIN ASSAYon 47-52-2108XJDXCLATEOBCTJ HEPARIN0.21 IU/mLLow0.30-0.70The [facility]ma HealthComment on above:Result Comment: Rivaroxaban and Apixaban will interfere with the anti Xa assay used tomonitor UFH and LMWH. Performed By: #### 83057, 81144, 61985, 18876, 71771 ####[facility] [place] [address], [facility] MEXICOUNFRACTIONATED HEPARIN <0.10Critically low0.30-0.70The [facility]ma HealthComment on above:Result Comment: Rivaroxaban and Apixaban will interfere with the anti Xa assay used tomonitor UFH and LMWH.RESULTS CHECKED AND CALLED. ACCURATELY READ BACK BY JESSICA LEE RN AT09:15Performed By: #### 26347, 21833, 73314, 73794, 87724 ####[facility] [address], USAResult Comment: Rivaroxaban and Apixaban will interfere with the anti Xa assay used tomonitor UFH and LMWH.RESULTS CHECKED AND CALLED. ACCURATELY READ BACK BY DWIGHT BUCKLEY 0151APC RESISTANCE ASSAYon 65-67-6377VLD RESISTANCE 1.6 RATIOLow2.0-4.9The [facility]ma HealthComment on above:Order Comment: << On admission If not done in ED>>No: Do not add to previous draw Result Comment: DUE TO THE LOW APC RESISTANCE RESULT, A FACTOR V LEIDEN GENE MUTATIONTEST IS SUGGESTED ON THIS PATIENT.Performed By: #### 13048, 25457, 23030, 05157, 10744 ####[facility] [place] [address], USAARTERIAL BLOOD GAS W/COOXon 98-11-0309AOVS EXCESS4 mmol/FLomi-8-9Hov [facility] HealthComment on above:Performed By: #### 23288 ####[facility] [place] [address], USABicarbonate (HCO3)29 mmol/PSaci14-53Kfl [facility]ma HealthComment on above:Performed By: #### 40337 ####[facility] [place] [address], IYVUX658 ouJkOzcqvz68-60Isw [facility]ma HealthComment on above:Performed By: #### 55289 ####[facility] [place] [address], [place] COHB1 %Normal0-1The [facility]ma HealthComment on above: Performed By: #### 47845 ####[facility] [place] [address], USADELIVERY SYSTEMSMercy Health Lorain HospitalComment on above:Performed By: #### 80838 ####[facility] [place] [address], VUYHKF6003 %Mgeemn92-647Ify [facility]ma HealthComment on above:Performed By: #### 95935 ####[facility] [place] [address], [place] LPM40.0 LPMHigh0.5-20.0The Summa HealthComment on above: Performed By: #### 18896 ####[facility] [place] [address], USAMETHB1.1 %Normal0.0-1.5The Summa HealthComment on above:Performed By: #### 08191 ####[facility] [place] [address], USAO2 gjovhnlnfk93.2 %Normal 94.0-97.0The Summa HealthComment on above:Performed By: #### 83557 ####[facility] [place] [address], USAOxygen in arterial dqsja599 mm[Hg]Critically ixsb58-656Qpi [facility] HealthComment on above:Performed By: #### 52107 ####[facility] [place] [address], USApH of blood7.43 [pH]Normal7.35-7.45The Summa HealthComment on above: Performed By: #### 45979 ####[facility] [place] [address], RNZNIC21.6 g/dLLow13.9-16.3The [facility]ma HealthComment on above:Performed By: #### 59704 ####[facility] [place] [address], USABASE EXCESS5 mmol/LHigh -2-2The Summa HealthComment on above:Performed By: #### 57955 ####[facility] [place] [address], USABicarbonate (HCO3)29 mmol/RRvnl07-87Rfz [facility] HealthComment on above:Performed By: #### 55958 ####[facility] [place] [address], ORUGF026 oyAkRmssqg49-57Try [facility]ma HealthComment on above:Performed By: #### 89028 ####[facility] [place] [address], [place] COHB2 %High0-1The Summa HealthComment on above:Performed By: #### 37288 ####[facility] [place] [address], [facility] MEXICODELIVERY SYSTEMSWELLSPAN WAYNESBORO HOSPITALNoMemorial [facility] Comment on above:Performed By: #### 36619 ####[facility] [place] [address], ZYTEAD1621 %Dkblug99-166Wln [facility] HealthComment on above:Performed By: #### 67101 ####[facility] [place] [address], [place] LPM40.0 LPMHigh0.5-20.0The Summa HealthComment on above: Performed By: #### 31232 ####[facility] [place] [address], USAMETHB1.0 %Normal0.0-1.5The Summa HealthComment on above:Performed By: #### 28832 ####[facility] [place] [address], USAO2 eznxzgddaq01.3 %Low 94.0-97.0The [facility] HealthComment on above:Performed By: #### 66868 ####[facility] [place] [address], USAOxygen in arterial blood61 mm[Hg]Nvp68-203Hgp [facility] HealthComment on above:Performed By: #### 63476 ####[facility] [place] [address], [facility] MEXICOpH of blood7.44 [pH] Normal7.35-7.45The [facility] HealthComment on above:Performed By: #### 55696 ####[facility] [place] [address], VFNSDB41.3 g/dLLow13.9-16.3The [facility]ma HealthComment on above:Performed By: #### 81915 ####[address] [place] [address], [facility] MEXICOARTERIAL BLOOD GAS WITH ICAon 80-49-3025ALUO EXCESS6 mmol/GSlwe-8-5Cxa [facility] HealthComment on above:Performed By: #### 32829, 67328, 05300, 75654, 10570 ####[address] [place] [address], [facility] Bicarbonate (HCO3)31 mmol/LCritically aesn29-23Rwm [facility] HealthComment on above:Performed By: #### 17278, 03442, 22616, 87659, 39712 ####[address] [place] [address], [facility] CO246 mjBfGakp07-00Osg [facility] HealthComment on above: Performed By: #### 46036, 72262, 22888, 34858, 55325 ####[address] [place] [address], USADELIVERY SYSTEMSHFNCNormal The Summa HealthComment on above:Performed By: #### 92921, 75582, 71133, 16858, 09988 ####[address] [place] [address], MNWNRY392 %Wijvhi96-649Xbm [facility]ma HealthComment on above:Result Comment: Result changed by ROBERT on 12/21/2016 21:58. The previous value was80.Performed By: #### 62999, 81055, 43222, 91364, 23547 ####[address] [place] [address], [facility] MEXICOIONIZED CALCIUM1.09 mmol/LLow1.13-1.32The [facility] HealthComment on above:Performed By: #### 51380, 47307, 75087, 06015, 11005 ####[facility] [place] [address], RBAWSG95.0 LPMHigh0.5-20.0The [facility] Comment on above:Performed By: #### 81122, 90869, 41335, 97738, 96344 ####[facility] [place] [address], [place] O2 oibieirqtj01.3 %Gzpxgk32.0-97.0The [facility]ma HealthComment on above:Performed By: #### 29893, 73867, 65502, 35812, 97972 ####[facility] [place] [address], USAOxygen in arterial blood86 mm[Hg]Qrygor06-729Ruj [facility] HealthComment on above:Performed By: #### 25826, 25833, 75821, 70665, 35354 ####[facility] [place] [address], USApH of blood7.43 [pH]Normal7.35-7.45The Sum[facility] HealthComment on above: Performed By: #### 10623, 91815, 59272, 61725, 73444 ####[facility] [place] [address], USABASE EXCESS6 mmol/LHigh -2-2The Summa HealthComment on above:Performed By: #### 23366 ####[facility] [place] [address], USABicarbonate (HCO3)30 mmol/TDdvx82-29Gxk [facility] HealthComment on above:Performed By: #### 17553 ####[facility] [place] [address], JOATS002 bkXwYespcw19-17Azt [facility] HealthComment on above:Performed By: #### 82083 ####[facility] [place] [address], [facility] DELIVERY SYSTEMSMercy Health Lorain HospitalComment on above:Performed By: #### 79620 ####[facility] [place] [address], LYLQOC0126 %Kgxofo03-310Qfc [facility] HealthComment on above:Performed By: #### 92822 ####[facility] [place] [address], [facility] MEXICOIONIZED CALCIUM1.17 mmol/LNormal1.13-1.32The [facility] HealthComment on above: Performed By: #### 68321 ####[facility] [place] [address], QJBUPG42.0 LPMHigh0.5-20.0The [facility] HealthComment on above:Performed By: #### 37189 ####[facility] [place] [address], [facility] MEXICOO2 zzgslxisfu98.4 %Low 94.0-97.0The [facility] HealthComment on above:Performed By: #### 60657 ####[facility] [place] [address], USAOxygen in arterial blood67 mm[Hg]Fke02-705Jom [facility] HealthComment on above:Performed By: #### 49589 ####[facility] [place] [address], [facility] MEXICOpH of blood7.46 [pH]High 7.35-7.45The [facility] HealthComment on above:Performed By: #### 00089 ####[facility] [place] [address], USABASE EXCESS6 mmol/GTxdz-0-1Xaa [facility] Comment on above:Performed By: #### 47093 ####[facility] [place] [address], USABicarbonate (HCO3)30 mmol/LHigh 23-27The [facility] HealthComment on above:Performed By: #### 39980 ####[facility] [place] [address], YPCIR641 jeCgYqtggl88-88Uvf [facility] HealthComment on above:Performed By: #### 61695 ####[facility] [place] [address], USADELIVERY SYSTEMSMercy Health Lorain HospitalComment on above:Performed By: #### 24085 ####[facility] [place] [address], OXDTUO5402 %Normal 21-100The [facility]ma HealthComment on above:Performed By: #### 46582 ####[facility] [place] [address], USAIONIZED CALCIUM1.16 mmol/LNormal1.13-1.32The [facility]ma HealthComment on above:Performed By: #### 54689 ####[facility] [place] [address], KZJEJS51.0 LPMHigh0.5-20.0 The Summa HealthComment on above:Performed By: #### 81806 ####[facility] [place] [address], [place] O2 sqwdnwzazi68.8 %Low94.0-97.0The Summa HealthComment on above:Performed By: #### 60662 ####[facility] [place] [address], USAOxygen in arterial blood56 mm[Hg]Zvh72-338Ysd [facility] HealthComment on above:Performed By: #### 57185 ####[facility] [place] [address], [place] pH of blood7.48 [pH]High7.35-7.45The [facility] HealthComment on above:Performed By: #### 10415 ####[facility] [place] [address], USABASIC METABOLIC PANELon 34-48-0871Rhgoikh4.2 mg/dLLow8.6-10.3The [facility] HealthComment on above:Order Comment: << On admission If not done in ED>>No: Do not add to previous draw Performed By: #### 33082, 65373, 41126, 36635, 27037 ####[facility] [place] [address], BWGFaraiift469 mmol/LNormal 98-107The [facility] HealthComment on above:Order Comment: << On admission If not done in ED>>No: Do not add to previous drawPerformed By: #### 21382, 82270, 70505, 79445, 19428 ####[facility] [place] [address], MANOU940 mmol/GOyytiq73-63Cik [facility] HealthComment on above:Order Comment: << On admission If not done in ED>>No: Do not add to previous drawPerformed By: #### 66869, 88726, 72144, 98971, 22788 ####[facility] [place] [address], USACreatinine0.80 mg/dLNormal0.70-1.30The [facility] HealthComment on above:Order Comment: << On admission If not done in ED>>No: Do not add to previous drawPerformed By: #### 92222, 84662, 02271, 10571, 07265 ####[facility] [place] [address], USAeGFR (black)mL/min/{1.73_m2}Normal>60The [facility] HealthComment on above:Order Comment: << On admission If not done in ED>>No: Do not add to previous drawPerformed By: #### 75451, 58778, 62741, 21578, 64463 ####[facility] [place] [address], USAOrder Comment: No: Do not add to previous drawPerformed By: #### 96047 ####[facility] [place] [address], USAeGFR (non-black)mL/min/{1.73_m2}Normal>60The [facility] HealthComment on above:Order Comment: << On admission If not done in ED>>No: Do not add to previous drawPerformed By: #### 08169, 25229, 59934, 41453, 54614 ####[facility] [place] [address], USAOrder Comment: No: Do not add to previous drawPerformed By: #### 37039 ####[facility] [place] [address], [facility] MEXICOGlucose mass zyex792 mg/gCPxrw75-883Epd [facility] HealthComment on above:Order Comment: << On admission If not done in ED>>No: Do not add to previous drawPerformed By: #### 66415, 07579, 36608, 72311, 97323 ####[facility] [place] [address], USAPotassium molar conc4.3 mmol/LNormal3.5-5.1 The [facility] HealthComment on above:Order Comment: << On admission If not done in ED>>No: Do not add to previous drawPerformed By: #### 32664, 22691, 13056, 88872, 24955 ####[facility] [place] [address], XGTWytphk423 mmol/MGnq325-771Uhz [facility] HealthComment on above:Order Comment: << On admission If not done in ED>>No: Do not add to previous drawPerformed By: #### 90305, 65211, 43552, 90487, 76037 ####[facility] [place] [address], [facility] MEXICOUrea sgxcgydf16 mg/dLNormal7-25The [facility] HealthComment on above:Order Comment: << On admission If not done in ED>>No: Do not add to previous drawPerformed By: #### 73848, 33650, 79622, 85697, 68291 ####[facility] [place] [address], [facility] Order Comment: No: Do not add to previous drawPerformed By: #### 54056 ####[facility] [place] [address], [facility] Calcium8.1 mg/dLLow8.6-10.3The [facility] HealthComment on above:Order Comment: No: Do not add to previous drawPerformed By: #### 13658 ####[facility] [place] [address], [facility] Rrfcdwgd931 mmol/ZAlmoql61-329Gyp [facility] HealthComment on above:Order Comment: No: Do not add to previous drawPerformed By: #### 13465 ####[facility] [place] [address], [facility] CO228 mmol/IIsoigl87-95Ldg [facility] HealthComment on above: Order Comment: No: Do not add to previous drawPerformed By: #### 20008 ####[facility] [place] [address], [place] Creatinine0.82 mg/dLNormal0.70-1.30The [facility] Comment on above:Order Comment: No: Do not add to previous drawPerformed By: #### 79889 ####[facility] [place] [address], [facility] MEXICOGlucose mass narl953 mg/sXSjzj17-712Ufj [facility] HealthComment on above:Order Comment: No: Do not add to previous drawPerformed By: #### 54249 ####[facility] [place] [address].[place] [address], [facility] MEXICOPotassium molar conc4.2 mmol/LNormal3.5-5.1The [facility] HealthComment on above:Order Comment: No: Do not add to previous drawPerformed By: #### 86077 ####[facility] [place], [place] [address] [address], VRYZlpwwg450 mmol/YQjuddg397-033Dej [facility] HealthComment on above:Order Comment: No: Do not add to previous drawPerformed By: #### 52899 ####[address] [place] [address], [facility]THER[facility] MEXICOCBC COMPLETE BLOOD COUNTon 41-19-3869Fxlkzpvyppt distribution width Auto Ratio (RBC)14.0 %Zyxhfp47.5-16.9 The [facility]ma HealthComment on above:Order Comment: No: Do not add to previous drawPerformed By: #### 92074 ####[facility] [place] [address].[place] [id number], [facility] MEXICOErythrocytes (RBC)3.05 mill/aq1Xmm7.30-5.90The [facility] HealthComment on above: Order Comment: No: Do not add to previous drawPerformed By: #### 52893 ####[address] [place] [address], [facility] Hematocrit (HCT)30.6 %Low39.0-55.0The [facility] HealthComment on above:Order Comment: No: Do not add to previous drawPerformed By: #### 20934 ####[facility] [place] [address], [facility] Hemoglobin mass conc (Bld)10.1 g/dLLow13.9-16.3The [facility] HealthComment on above:Order Comment: No: Do not add to previous drawPerformed By: #### 25215 ####[facility] [place] [address], JZUOTN82.0 ixZcxi32.0-32.0The [facility] Comment on above:Order Comment: No: Do not add to previous drawPerformed By: #### 02524 ####[facility] [place] [address], [facility] MEXICOMCHC mass conc (RBC)32.9 g/cQOjdfqi57.0-36.0The [facility] HealthComment on above:Order Comment: No: Do not add to previous draw Performed By: #### 04360 ####[facility] [place] [address], POZUYI152.4 gDNegd36.0-100.0The [facility] HealthComment on above:Order Comment: No: Do not add to previous draw Performed By: #### 26800 ####[facility] [place] [address], USAPLAT BRQ822 Thou/qy3Dmkaoa817-505Pgb [facility] HealthComment on above:Order Comment: No: Do not add to previous drawPerformed By: #### 37746 ####[facility] [place] [address], [facility]OUTHER[facility] NEW MEXICOWBC (Leukocytes)24.2 Thou/gw8Pnaf4.0-10.0The [facility] HealthComment on above:Order Comment: No: Do not add to previous drawPerformed By: #### 52577 ####[facility] [place] [address], [facility] MEXICOFACTOR V LEIDENon 08-09-3795QBEUPX V LEIDENHETEROZYGOUS FOR FACTOR V LEIDEN MUTATIONCritically abnormalNEGATIVE FOR FACTOR V LEIDEN MUTATIONThe Summa HealthComment on above:Order Comment: << On admission If not done in ED>>No: Do not add to previous drawResult Comment: INTERPRETATION: This patient is heterozygous for the Factor [...] for other genetic risk factors including theprothrombin 90138U>A mutation and 5, 10 methylenetetrahydrofolatereductase (MTHFR) mutation (c.677C>T; p.A222V). Genetic counseling isrecommended to discuss the implications of this test result. Inaddition, the study of other at-risk family members is recommended.Please contact the [facility] at [phone].METHODOLOGY: Genotyping of the mutation is determined by [employer]. This test detects the targeted sequence single nucleotidepolymorphism after genomic DNA is extracted from whole blood. [employer] utilizes a single-tube, two phase reaction, includingtarget amplification and signal generation, mediated by [employer]. The fluorescence is then readby a fluorometer and thegenotype is determined by analysis of signal generated from the wildtype and mutant probes.This test has been approved by the FDA and has been verified for use bythe MolecularDiagnostics Department at the [facility].REFERENCES: 1) Elroy PM, et al. NEngl J Med. 1994 6;332(14):912-7.2) Juan R P, et al. Semin Thromb Hemost. 2006 Dec;32(7):700-8. 3) Odin MOHAMUD et al. Am. J. Hum. [place]. 62: 1898-2741, 1997. 4) Meron S,et al. J. Hum. [place]. 48: 1-7, 2002. 5) Lorenzo IS, et al.Atherosclerosis 156(2):409, 2000.Performed By: #### [id number], [id number], [id number], [id number], [id number] ####[facility] SIGNED BY:Rn Diabetes, Department of PathologyPremier Health Miami Valley HospitalComment on above:Order Comment: << On admission If not done in ED>>No: Do not add to previous drawPerformed By: #### [id number], [id number], 11016, 47333, [id number] ####[facility] [place] [address], [facility] MEXICOMAGNESIUM BLOODon 07-22-8777Idcymjhti0.0 mg/dLNormal1.9-2.7The [facility] HealthComment on above:Order Comment: No: Do not add to previous drawPerformed By: #### [id number] ####[address] [place] [address], [facility] S[facility]THER[facility] MEXICOPOC GLUCOSE LABon 12-21-2016 Glucose mass iomd034 mg/gPCbtr36-336Nop [facility] Comment on above:Performed By: #### [id number], [id number], 11754, 45590, 37534 ####[facility] [place] [address], [facility] Glucose mass oqfz462 mg/lASyma14-286Adt [facility] Comment on above:Performed By: #### [id number] ####[place] [id number] [facility] [place] [address], [facility] MEXICOGlucose mass ufgx184 mg/dLHigh 70-100The [facility]ma HealthComment on above:Performed By: #### 79005 ####[address] [place] [address], USAGlucose mass conc94 mg/aOBiypgy53-849Ogb [facility] HealthComment on above:Performed By: #### 90362 ####[facility] [place] [address], [facility] MEXICOGlucose mass plkp591 mg/dLHigh 70-100The [facility] HealthComment on above:Performed By: #### 97942 ####[facility] [place] [address], [facility] MEXICOGlucose mass aduh141 mg/dCPnfu76-104Acv [facility] HealthComment on above:Performed By: #### 45353 ####[facility] [place] [address], USAUFH HEPARIN ASSAYon 12-21-2016 UNFRACTIONATED HEPARIN<0.10Critically low0.30-0.70The [facility]ma HealthComment on above:Result Comment: Rivaroxaban and Apixaban will interfere with the anti Xa assay used tomonitor UFH and LMWH.RESULTS CHECKED AND CALLED. ACCURATELY READ BACK BY JESSICA LEE RN [id number] By: #### 84229, 37988, 24270, 08260, 47430 ####[facility] [place] [address], USAARTERIAL BLOOD GAS WITH ICAon 11-53-8211NCPJ EXCESS4 mmol/JWwqx-8-8Lsr [facility] HealthComment on above:Order Comment: RESULTS CHECKED AND CALLED. ACCURATELY READ BACK BY JOSUÉ ANNAerformed By: #### 30871 ####[facility] [place] [address], USABicarbonate (HCO3)28 mmol/SIiwj88-33Gvi [facility] HealthComment on above:Order Comment: RESULTS CHECKED AND CALLED. ACCURATELY READ BACK BY JOSUÉ ANNAerformed By: #### 80131 ####[facility] [place] [address], TIRTU238 mmHgNormal 35-45The [facility]ma HealthComment on above:Order Comment: RESULTS CHECKED AND CALLED. ACCURATELY READ BACK BY JOSUÉ ANNAerformed By: #### 90682 ####[facility] [place] [address], USADELIVERY SYSTEMSCAMNormalThe [facility] Comment on above:Order Comment: RESULTS CHECKED AND CALLED. ACCURATELY READ BACK BY JOSUÉ ANNAerformed By: #### 93213 ####[facility] [place] [address], AOAJXO919 %Yxtfxb03-434Lpm [facility] HealthComment on above:Order Comment: RESULTS CHECKED AND CALLED. ACCURATELY READ BACK BY JOSUÉ ANNAerformed By: #### 12659 ####[facility] [place] [address], USAIONIZED CALCIUM 1.16 mmol/LNormal1.13-1.32The [facility] HealthComment on above:Order Comment: RESULTS CHECKED AND CALLED. ACCURATELY READ BACK BY JOSUÉ ANNAerformed By: #### 28145 ####[facility] [place] [address], CSYQNO30.0 LPMNormal0.5-20.0The [facility] HealthComment on above:Order Comment: RESULTS CHECKED AND CALLED. ACCURATELY READ BACK BY JOSUÉ ANNAerformed By: #### 17259 ####[facility] [place] [address], USAO2 ujefnappba97.1 % Low94.0-97.0The [facility]ma HealthComment on above:Order Comment: RESULTS CHECKED AND CALLED. ACCURATELY READ BACK BY JOSUÉ ANNAerformed By: #### 31449 ####[facility] [place] [address], USAOxygen in arterial blood50 mm[Hg]Critically kps31-599Rzo [facility] HealthComment on above:Order Comment: RESULTS CHECKED AND CALLED. ACCURATELY READ BACK BY JOSUÉ RNPerformed By: #### 29959 ####[facility] [place] [address], [facility] pH of blood7.45 [pH]Normal7.35-7.45The [facility] Comment on above:Order Comment: RESULTS CHECKED AND CALLED. ACCURATELY READ BACK BY JOSUÉ RNPerformed By: #### 66098 ####[facility] [place] [address], [facility] MEXICOBASE EXCESS5 mmol/SWwvo-8-2Xqq [facility] HealthComment on above:Order Comment: RESULTS CHECKED AND CALLED. ACCURATELY READ BACK BY JOSUÉ RNPerformed By: #### 12976 ####[facility] [place] [address], [facility] Bicarbonate (HCO3)28 mmol/ETfeh00-31Bbh [facility] Comment on above:Order Comment: RESULTS CHECKED AND CALLED. ACCURATELY READ BACK BY JOSUÉ RNPerformed By: #### 01649 ####[facility] [place] [address], NCXHU884 poSmGynunv93-51Vle [facility] HealthComment on above:Order Comment: RESULTS CHECKED AND CALLED. ACCURATELY READ BACK BY JOSUÉ RNPerformed By: #### 15620 ####[facility] [place] [address], [facility] DELIVERY SYSTEMSCOOL AEROSOL MASKNormalThe [facility] Comment on above:Order Comment: RESULTS CHECKED AND CALLED. ACCURATELY READ BACK BY JOSUÉ RNPerformed By: #### 08507 ####[facility] [place] [address], QXEXYV135 %Uivwgi11-913Wqj [facility] HealthComment on above:Order Comment: RESULTS CHECKED AND CALLED. ACCURATELY READ BACK BY JOSUÉ RNPerformed By: #### 26628 ####[facility] [place] [address], USAIONIZED CALCIUM 1.17 mmol/LNormal1.13-1.32The [facility] HealthComment on above:Order Comment: RESULTS CHECKED AND CALLED. ACCURATELY READ BACK BY JOSUÉ ANNAerformed By: #### 59489 ####[facility] [place] [address], TTUUPB97.0 LPMNormal0.5-20.0The [facility] HealthComment on above:Order Comment: RESULTS CHECKED AND CALLED. ACCURATELY READ BACK BY JOSUÉ ANNAerformed By: #### 80392 ####[facility] [facility] [place] [address], [facility] MEXICOO2 khwcrclbar53.1 % Low94.0-97.0The [facility] HealthComment on above:Order Comment: RESULTS CHECKED AND CALLED. ACCURATELY READ BACK BY JOSUÉ ANNAerformed By: #### 08935 ####[facility] [place] [address], USAOxygen in arterial blood50 mm[Hg]Critically dyu72-883Fnz [facility] HealthComment on above:Order Comment: RESULTS CHECKED AND CALLED. ACCURATELY READ BACK BY JOSUÉ ANNAerformed By: #### 59338 ####[facility] [place] [address], [place] pH of blood7.47 [pH]High7.35-7.45The [facility] HealthComment on above:Order Comment: RESULTS CHECKED AND CALLED. ACCURATELY READ BACK BY JOSUÉ ANNAerformed By: #### 40782 ####[facility] [place] [address], USABASE EXCESS1 mmol/GSvrdwa-3-5Utt [facility] HealthComment on above:Order Comment: R/O CHFPerformed By: #### 44786 ####[facility] [place] [address], USABicarbonate (HCO3)26 mmol/NIjnvey73-16Tjf [facility] HealthComment on above:Order Comment: R/O CHFPerformed By: #### 96711 ####[facility] [place] [address], [place] CO240 jiWyQqehrz11-18Dcw [facility] HealthComment on above: Order Comment: R/O CHFPerformed By: #### 81598 ####[facility] [place] [address], USADELIVERY SYSTEMSFreeman Orthopaedics & Sports Medicinee [facility] HealthComment on above:Order Comment: R/O CHF Performed By: #### 74296 ####[facility] [place] [address], USAIONIZED CALCIUM1.24 mmol/LNormal1.13-1.32The [facility] HealthComment on above:Order Comment: R/O CHFPerformed By: #### 09369 ####[facility] [place] [address], USALPM6.0 LPMNormal0.5-20.0The [facility] HealthComment on above:Order Comment: R/O CHFPerformed By: #### 40277 ####[facility] [place] [address], USAO2 cfggbvxtyz19.9 % Low94.0-97.0The [facility] HealthComment on above:Order Comment: R/O CHFPerformed By: #### 64417 ####[facility] [place] [address], USAOxygen in arterial blood54 mm[Hg] Critically vxj21-186Ula [facility] HealthComment on above: Order Comment: R/O CHFPerformed By: #### 93798 ####[facility] [place] [address], USApH of blood7.42 [pH]Normal 7.35-7.45The [facility] HealthComment on above:Order Comment: R/O CHFPerformed By: #### 22401 ####[facility] [place] [address], USABASIC METABOLIC PANELon 81-96-1293Hewdfdm6.1 mg/dLLow8.6-10.3The [facility] HealthComment on above:Order Comment: R/O CHFPerformed By: #### 70766, 91073, 63551 ####[facility] [place] [address], DGXJrqlrphx518 mmol/LNormal 98-107The [facility] HealthComment on above:Order Comment: R/O CHFPerformed By: #### 83864, 53858, 71441 ####[facility] [place] [address], MTAAG814 mmol/CYknqum33-89Chq [facility] HealthComment on above:Order Comment: R/O CHF Performed By: #### 20312, 64738, 32537 ####[facility] [place] [address], USACreatinine0.84 mg/dLNormal 0.70-1.30The [facility] HealthComment on above:Order Comment: R/O CHFPerformed By: #### 43671, 22905, 08003 ####[facility] [place] [address], USAeGFR (black)mL/min/{1.73_m2}Normal >60The [facility] HealthComment on above:Order Comment: R/O CHFPerformed By: #### 46414, 24687, 91779 ####[facility] [place] [address], USAeGFR (non-black)mL/min/{1.73_m2} Normal>60The [facility] HealthComment on above:Order Comment: R/O CHFPerformed By: #### 24863, 97501, 43581 ####[facility] [place] [address], [facility]ICOGlucose mass wkkb158 mg/dLHigh 70-100The [facility] HealthComment on above:Order Comment: R/O CHFPerformed By: #### 63191, 62781, 42397 ####[facility] [place] [address], USAPotassium molar conc4.3 mmol/L Normal3.5-5.1The [facility] HealthComment on above:Order Comment: R/O CHFPerformed By: #### 77949, 40891, 11093 ####[facility] [place] [address], JMZXeywsg306 mmol/LNormal 136-145The [facility] HealthComment on above:Order Comment: R/O CHFPerformed By: #### 93145, 13478, 38051 ####[facility] [place] [address], USAUrea toihkvxc91 mg/dLNormal7-25The [facility] HealthComment on above:Order Comment: R/O CHF Performed By: #### 01553, 03384, 27960 ####[facility] [place] [address], [facility] MEXICOCBC COMPLETE BLOOD COUNTon 10-98-5818Exdfnlwkxtp distribution width Auto Ratio (RBC)13.8 %Luwope39.5-16.9 The [facility] HealthComment on above:Order Comment: R/O CHF Performed By: #### 59668 ####[facility] [place] [address], [facility] MEXICOErythrocytes (RBC)3.49 mill/om4Hha4.30-5.90The [facility] HealthComment on above:Order Comment: R/O CHF Performed By: #### 18110 ####[facility] [place] [address], [facility] MEXICOHematocrit (HCT)35.2 %Low39.0-55.0The [facility] HealthComment on above:Order Comment: R/O CHFPerformed By: #### 54945 ####[facility] [place] [address], [facility] MEXICOHemoglobin mass conc (Bld)11.7 g/dLLow13.9-16.3The [facility] HealthComment on above:Order Comment: R/O CHFPerformed By: #### 65535 ####[facility] [place] [address], OSHHJQ45.4 xsXiun87.0-32.0The [facility] HealthComment on above:Order Comment: R/O CHFPerformed By: #### 13843 ####[facility] [place] [address], [facility] MEXICOMCHC mass conc (RBC)33.1 g/pXHkqcug39.0-36.0The [facility] HealthComment on above:Order Comment: R/O CHFPerformed By: #### 23952 ####[facility] [place] [address], DLTDCI712.7 rYGctn06.0-100.0The [facility] HealthComment on above:Order Comment: R/O CHF Performed By: #### 02302 ####[facility] [place] [address], USAPLAT DTF206 Thou/ct1Zlvxsl759-977Sjl [facility] HealthComment on above:Order Comment: R/O CHFPerformed By: #### 91929 ####[facility] [place] [address], [facility] MEXICOWBC (Leukocytes)17.2 Thou/gs2Fcfk4.0-10.0The [facility] HealthComment on above:Order Comment: R/O CHFPerformed By: #### 38383 ####[facility] [place] [address], [facility] COOXIMETRYon 15-16-4981HJDQ4 %NormalThe [facility] Comment on above:Order Comment: R/O CHFPerformed By: #### 21069 ####[facility] [place] [address], USAMETHB1 %Normal The [facility] HealthComment on above:Order Comment: R/O CHF Performed By: #### 83812 ####[facility] [place] [address], [facility] S[facility] MEXICOO2 deslcmatdr37.4 %Low60.0-80.0The [facility] HealthComment on above:Order Comment: R/O CHFPerformed By: #### 82856 ####[facility] [place] [address], [facility] THB11.1 g/dLLow13.9-16.3The [facility] HealthComment on above: Order Comment: R/O CHFPerformed By: #### 35505 ####[facility] [place] [address], [facility] MEXICOCPK-MB PROFILEon 66-93-2538CSPM3.1 ng/mLCritically high0.0-1.9The [facility] HealthComment on above:Order Comment: R/O CHFResult Comment: M-CRITICAL RESULT(S) REVIEWED, CALLED TO AND READ BACK BY DWIGHT SERRANO @ 05Performed By: #### 34221, 28204, 92254 ####[facility] [place] [address], QTDSWXE52.4 ng/mLHigh0.0-5.0The [facility] Comment on above:Order Comment: R/O CHFResult Comment: IF TOTAL CK <200 U/L AND: 1. CKMB IS 5-10 NG/ML----BORDERLINE 2. CKMB IS >10 NG/ML----INDICATIVE OF MA OR IF TOTAL CK >200 U/L AND CKMB INDEX >1.9----INDICATIVE OF MIPerformed By: #### 89978, 40771, 62841 ####[facility] [place] [address], USACreatine kinase (CK)237 U/BPwjt28-280Lib [facility] HealthComment on above:Order Comment: R/O CHFPerformed By: #### 65983, 28757, 64912 ####[facility] [place] [address], USAMAGNESIUM BLOODon 62-48-0453Bfbnpizqj2.2 mg/dLNormal 1.9-2.7The [facility] HealthComment on above:Order Comment: R/O CHFPerformed By: #### 88857, 80533, 67467 ####[facility] [place] [address], USAPOC GLUCOSE LABon 12-20-2016 Glucose mass tqwy796 mg/nZLnpf54-704Gdt [facility] Comment on above:Performed By: #### 90369 ####[facility] [place] [address], USAGlucose mass chur341 mg/dLHigh 70-100The [facility] HealthComment on above:Performed By: #### 68467 ####[facility] [place] [address], USAGlucose mass conc95 mg/zVYuvgjv12-501Yhm [facility] HealthComment on above:Performed By: #### 32051 ####[facility] [place] [address], USAGlucose mass fdry433 mg/dLHigh 70-100The [facility] HealthComment on above:Performed By: #### 89465 ####[facility] [place] [address], USAGlucose mass ktbm889 mg/wJSfcs01-083Zim [facility] HealthComment on above:Performed By: #### 82706 ####[facility] [place] [address], USAGlucose mass aald226 mg/dLHigh 70-100The [facility] HealthComment on above:Performed By: #### 44877 ####[facility] [place] [address], USAGlucose mass mcys991 mg/yAOdux48-064Rwh [facility] HealthComment on above:Performed By: #### 71810 ####[facility] [place] [address], USAGlucose mass oqmb262 mg/dLHigh 70-100The [facility] HealthComment on above:Performed By: #### 26421 ####[facility] [place] [address], USAGlucose mass mfmt647 mg/kWObde87-611Fii [facility] HealthComment on above:Performed By: #### 37630 ####[facility] [place] [address], USAGlucose mass aqkp132 mg/dLHigh 70-100The [facility] HealthComment on above:Performed By: #### 78635 ####[facility] [place] [address], USAPORTABLE CHEST 1 VIEWon 75-12-8884VHTINTKD CHEST 1 VIEWUnParma Community General HospitalDepartment of Zqxmirgth[address] [place] [id number] Patibc soriano Name: TORSTEN HAYWOOD : 1955Sex: MAge: Race: WhiteMRN: [id number]. Location: [id number]: IVisit #: [id number] Date: 12/20/2016 9:00:00 PMCompleted Date: 12/20/2016 09:17 PMRequesting Provider: JOSEPH HOLLINS Attending Provider: TORSTEN YEPEZ Report Copy To: Signs & Symptoms: Acute Respiratory DistressHistory: Patient history not availableComments: R/O AtelectasisExam: PORTABLE CHEST 1 VIEWAccession #: [id number] PORTABLE CHEST 1 VIEW 12/20/2016 9:17 PM EDT SIGNS AND SYMPTOMS: Acute Respiratory Distress; increased shortness of breath; R/O Atelectasis PROTOCOL: AP(PA) view was obtained. COMPARISON: Chest radiograph December 12, 2016. FINDINGS: Lines and Tubes: Sternotomy wires are intact. R ight-sided central line can be seen with the tip terminating in the mid SVC.Cardiomediastinal Silhouette: Heart is enlarged.Pulmonary Vasculature: Normal vascularity.Pleura: Left-sided pleural effusion. No pneumothorax.Pulmonary Parenchyma: No focal parenchymal opacities are seen. IMPRESSION: Increased left-sided pleural effusion with associated atelectasis. Underlying pneumonia is not excluded.Unchanged cardiomegaly. Approved by:Freedom Tian on 12/20/2016 9:22 PM EDT. I, Rafael Yanez, have reviewed the images and report and concur with these findings. Electronically signed by:Rafael Yanez. Transcribed by: [email or web address], User Resident: FREEDOM TIANElectronically Signed by: RAFAEL YANEZ @ 12/22/2016 03:36 AMI personally read this/these film(s) with this residentPremier Health Miami Valley HospitalComment on above: Order Comment: << On admission If not done in ED>>No: Do not add to previous drawPROTHROMBIN TIMEon 49-41-1404ZPY Coag RelTime (PPP)1.31 {INR}High0.91-1.16 [facility] HospitalComment on above:Order Comment: R/O CHF Result Comment: ACCCP RECOMMENDED INR FOR WARFARIN THERAPY CONDITION INRPROPHYLAXIS OF VENOUS THROMBOSIS 2-3(HIGH-RISK SURGERY)TREATMENT OF VENOUS THROMBOSIS 2-3TREATMENT OF PULMONARY EMBOLISM 2-3PREVENTION OF SYSTEMIC EMBOLISM: 2-3 ACUTE MYOCARDIAL INFARCTION TISSUE HEART VALVES VALVULAR HEART DISEASE ATRIAL FIBRILLATION RECURRENT SYSTEMIC EMBOLISMMECHANICAL HEART VALVE 2.5-3.5 FROM: ORAL ANTICOAGULANTS. MECHANISM OF ACTION, CLINICALEFFECTIVENESS, AND OPTIMAL THERAPEU TIC RANGE. [id number];108:231S-246S.Performed By: #### 38098 ####[facility] [facility] [place] [address], [facility] MEXICOProthrombin time (PT) Coag time (PPP)16.4 sHigh12.3-14.8The [facility] Comment on above:Order Comment: R/O CHFResult Comment: ALL RESULTS MUST BE INTERPRETED WITH RESPECT TO BLOOD DRAWING ARTIFACTOR DILUTION ERROR OF ANTICOAGULANT AT THE TIME OF SAMPLING.Performed By: #### 35414 ####[facility] [place] [address], [facility] MEXICOACTIVATED CLOTTING TIMEon 31-29-7376FYVBAWITA CLOTTING HRZJ000 ndlQwbhzq65-622Mth [facility] HealthComcorewell health [facility] on above:Performed By: #### 54063, 18650, 96161, 20356, 50561 ####[facility] [place] [address], USAACTIVATED CLOTTING [id number] xdqYelw56-968Xeo [facility]Comcore[facility] on above:Performed By: #### 40770, 52364, 01387, 44944, 98932 ####[facility] [place] [address], USAACTIVATED CLOTTING [id number] jboYcsv92-467Ukt [facility]Comcore[facility] on above:Performed By: #### 83356, 41433, 40777, 40640, 25785 ####[facility] [place] [address], USAACTIVATED CLOTTING HGUE076 tozNouy13-132Jeh [facility] HealthComcore[facility] on above:Performed By: #### 91239, 35010, 00407, 62913, 40190 ####[facility] [place] [address], USAACTIVATED CLOTTING JNHO609 zteFylc73-571Vzd [facility]Comcore[facility] on above:Performed By: #### 87533, 45059, 97258, 01631, 13136 ####[facility] [place] [address], USAACTIVATED CLOTTING YFOH622 nogPswp85-289Zpv [facility]Comcore[facility] on above:Performed By: #### 32803, 00592, 50000, 93708, 28376 ####[facility] [place] [address], USAACTIVATED CLOTTING VJPC706 ifoKbmy50-485Zio [facility]Comcore[facility] on above:Performed By: #### 78507, 88454, 13075, 55290, 36755 ####[facility] [place] [address], USAACTIVATED CLOTTING [id number] yuzWkzz36-131Tvv [facility] HealthComment on above:Performed By: #### 99346, 75690, 63001, 93646, 36036 ####[facility] [place] [address], USAAPTTon 99-04-0655oHLM26.5 gSnchby07.0-35.0The [facility] HealthComment on above:Order Comment: No: Do not add to previous draw Result [...] HEPARIN ASSAY (ANTI-XAACTIVITY) BE USED FOR THIS PURPOSE.Performed By: #### 46296, 62255, 00708, 98128, 11455 ####[facility] [place] [address], USAARTERIAL BLOOD GAS W/COOXon 58-84-9388UWLH EXCESS-2 mmol/YKoygtt-9-2Dcy [facility] HealthComment on above:Performed By: #### [id number] ####[place] [id number] [place] [address], USABicarbonate (HCO3)24 mmol/PTqfspk54-38Zxl [facility] HealthComment on above: Performed By: #### [id number] ####[facility] [address], YKZDS926 ryAuVihn39-98Aux [facility] HealthComment on above:Performed By: #### [id number] ####[place] [id number] [place] [address], USACOHB2 %High0-1The [facility]ma HealthComment on above:Performed By: #### [id number] ####[address] [place] [address], VUCIDS235 %Normal 21-100The [facility]ma HealthComment on above:Performed By: #### [id number] ####[facility] [address], USAMETHB1.0 %Normal0.0-1.5The [facility]ma HealthComment on above:Performed By: #### [id number] ####[facility] [place] [address], USAMIN VOLUME8.4NormKettering Health PrebleComment on above:Performed By: #### [id number] ####[facility] [place] [address], [facility] MEXICOMODALITYSPONTNoMemorial Health System Selby General HospitalComment on above:Performed By: #### [id number] ####[facility] [place] [address], [place] O2 jlwunmjnib26.3 %Low94.0-97.0The [facility] HealthComment on above:Performed By: #### [id number] ####[facility] [place] [address], USAOxygen in arterial blood74 mm[Hg]Itr27-260Rfk [facility] HealthComment on above:Performed By: #### [id number] ####[facility] [place] [address], [place] PEEP6.0 DDZ56MvzkvjDesMemorial Health System Selby General HospitalComment on above: Performed By: #### [id number] ####[facility] [place] [address], [facility] SOUTHER[facility] NEW MEXICOpH of blood7.32 [pH]Low7.35-7.45The [facility] HealthComment on above:Performed By: #### [id number] ####[facility] [place] [address].[place] [address], USAPRESSURE SUPPORT5 NormalThe [facility]ma HealthComment on above:Performed By: #### [id number] ####[facility] [place] [address], MDKIZA31.8 g/dLLow13.9-16.3The [facility] HealthComment on above:Performed By: #### [id number] ####[facility] [place] [address], USAARTERIAL BLOOD GAS WITH ICAon 83-12-6562DECI EXCESS-2 mmol/TShixqp-1-6Unp [facility] HealthComment on above:Order Comment: If not done in EDNo: Do not add to previous drawPerformed By: #### [id number] ####[facility] [place], [place] [address], [place] [address], USABicarbonate (HCO3)23 mmol/LVwgtri00-76Gyo [facility] HealthComment on above:Order Comment: If not done in EDNo: Do not add to previous drawPerformed By: #### [id number] ####[facility] [place] [address], AQKIX218 woLqJytrtj22-82Luk [facility] HealthComment on above:Order Comment: If not done in EDNo: Do not add to previous drawPerformed By: #### 25624 ####[facility] [place] [address], DLDUSU412 %Normal 21-100The Summa HealthComment on above:Order Comment: If not done in EDNo: Do not add to previous drawPerformed By: #### 41047 ####[facility] [place] [address], [place] IONIZED CALCIUM1.15 mmol/LNormal1.13-1.32The [facility] Comment on above:Order Comment: If not done in EDNo: Do not add to previous draw Performed By: #### 59341 ####[facility] [place] [address], USAMIN VOLUME7.9NoMemorial Health System Selby General HospitalComment on above:Order Comment: If not done in EDNo: Do not add to previous drawPerformed By: #### 64194 ####[facility] [place] [address], USAMODALITYSIMVNoMemorial Health System Selby General HospitalComment on above:Order Comment: If not done in EDNo: Do not add to previous drawPerformed By: #### 61844 ####[facility] [place] [address], USAO2 ifcmftkquu52.9 %Normal 94.0-97.0The Summa HealthComment on above:Order Comment: If not done in EDNo: Do not add to previous drawPerformed By: #### 46615 ####[facility] [place] [address], [place] Oxygen in arterial brrda158 mm[Hg]Critically tdgz49-608Ggz [facility] HealthComment on above:Order Comment: If not done in EDNo: Do not add to previous drawPerformed By: #### 74424 ####[facility] [place] [address], USAPEEP6.0 LOO26OstvvwWyrMemorial Health System Selby General HospitalComment on above:Order Comment: If not done in EDNo: Do not add to previous drawPerformed By: #### 95722 ####[facility] [place] [address], USApH of blood7.35 [pH]Normal 7.35-7.45The [facility]ma HealthComment on above:Order Comment: If not done in EDNo: Do not add to previous drawPerformed By: #### 71945 ####[facility] [place] [address], [place] Respiratory rate13 /minNormalThLake County Memorial Hospital - WestComment on above:Order Comment: If not done in EDNo: Do not add to previous drawPerformed By: #### 78721 ####[facility] [place] [address], USATIDAL VOLUME (VT) RE452MrrxrxRmqKettering Health PrebleComment on above:Order Comment: If not done in EDNo: Do not add to previous drawPerformed By: #### 22113 ####[facility] [place] [address], USABASIC METABOLIC PANELon 12-19-2016 Calcium7.9 mg/dLLow8.6-10.3The [facility]ma HealthComment on above:Performed By: #### 74660, 26734, 64347, 05124, 82089 ####[facility] [place] [address], GZEBqvfkhqy319 mmol/L Dnwz32-144Ubm [facility] HealthComment on above:Performed By: #### 88214, 13903, 31446, 00998, 14425 ####[facility] [place] [address], ODJWJ690 mmol/RQwnkaq98-67Qme [facility] HealthComment on above:Performed By: #### 14806, 76885, 40026, 38018, 64080 ####[facility] [place] [address], USACreatinine0.99 mg/dLNormal0.70-1.30The [facility] HealthComment on above:Performed By: #### 25782, 62086, 54162, 79246, 83175 ####[facility] [place] [address], USAeGFR (black)mL/min/{1.73_m2}Normal>60The [facility]ma HealthComment on above:Performed By: #### 41324, 49405, 58089, 93379, 28182 ####[facility] [place] [address], USAeGFR (non-black)mL/min/{1.73_m2}Normal>60The [facility] HealthComment on above:Performed By: #### 07398, 07707, 98560, 23704, 86955 ####[facility] [place] [address], [facility] MEXICOGlucose mass gbta729 mg/sKBabw90-509Log [facility] HealthComment on above:Performed By: #### 78632, 54332, 01449, 07118, 34017 ####[facility] [place], [place] [address] [address], [place] Potassium molar conc4.4 mmol/LNormal3.5-5.1The [facility] HealthComment on above:Performed By: #### 57314, 42200, 53496, 44143, 94836 ####[facility] [place] [address], [facility] Zpunbl929 mmol/WVdhaic266-126Eec [facility] HealthComment on above:Performed By: #### 22981, 25640, 25237, 76799, 23547 ####[facility] [place] [address], USAUrea zexxzsuo40 mg/dLNormal7-25The [facility] HealthComment on above:Performed By: #### 74835, 27351, 39198, 27417, 25423 ####[address] [place] [address], USACalcium9.7 mg/dLNormal8.6-10.3The [facility] HealthComment on above:Order Comment: No: Do not add to previous drawPerformed By: #### 10931, 75532, 09490, 97035, 63013 ####[facility] [place] [address], [place] Itnnwdtd627 mmol/AXfcwpp93-959Nmi [facility] HealthComment on above:Order Comment: No: Do not add to previous drawPerformed By: #### 64149, 20413, 32019, 21263, 34167 ####[facility] [place] [address], GZNAR558 mmol/RXtdlsg23-39Khs [facility] HealthComment on above:Order Comment: No: Do not add to previous draw Performed By: #### 47529, 08642, 22461, 90858, 01655 ####[facility] [place] [address], USACreatinine1.14 mg/dLNormal 0.70-1.30The [facility] HealthComment on above:Order Comment: No: Do not add to previous drawPerformed By: #### 00547, 69918, 76756, 51440, 08753 ####[facility] [place] [address], USAeGFR (black)mL/min/{1.73_m2}Normal>60The [facility] HealthComment on above:Order Comment: No: Do not add to previous drawPerformed By: #### 31082, 19001, 07310, 34653, 04869 ####[facility] [place] [address], USAeGFR (non-black)mL/min/{1.73_m2} Normal>60The [facility] HealthComment on above:Order Comment: No: Do not add to previous drawPerformed By: #### 50719, 16074, 00927, 80606, 64706 ####[facility] [place] [address], USAGlucose mass hdyy875 mg/mMUtfs21-556Bfg [facility] HealthComment on above:Order Comment: No: Do not add to previous drawPerformed By: #### 90355, 33642, 28666, 92790, 36260 ####[facility] [place] [address], USAPotassium molar conc4.3 mmol/L Normal3.5-5.1The [facility] HealthComment on above:Order Comment: No: Do not add to previous drawPerformed By: #### 01841, 26434, 87797, 94067, 65193 ####[facility] [place] [address], HGCRfewel809 mmol/JFoilxv995-048Fce [facility] HealthComment on above:Order Comment: No: Do not add to previous drawPerformed By: #### 16869, 24781, 71266, 96997, 45024 ####[facility] [place] [address], USAUrea gwemjjky62 mg/dLHigh7-25The [facility] HealthComment on above:Order Comment: No: Do not add to previous drawPerformed By: #### 99819, 89306, 94597, 91411, 41446 ####[facility] [place] [address], [facility] CBC COMPLETE BLOOD COUNTon 86-01-1367Dhotgksxmgr distribution width Auto Ratio (RBC)14.4 %Zuippr45.5-16.9The [facility] HealthComment on above:Performed By: #### 16521, 97415, 79778, 00287, 17070 ####[facility] [place] [address], [facility] MEXICOErythrocytes (RBC) 3.62 mill/se4Qby8.30-5.90The [facility] HealthComment on above:Performed By: #### 84128, 34861, 49660, 21669, 53083 ####[facility] [place] [address], [facility] MEXICOHematocrit (HCT) 36.1 %Low39.0-55.0The [facility] HealthComment on above: Performed By: #### 96697, 42915, 36893, 69402, 91082 ####[facility] [place] [address], [facility] MEXICOHemoglobin mass conc (Bld) 12.1 g/dLLow13.9-16.3The [facility] HealthComment on above: Performed By: #### 15815, 53403, 34401, 66836, 90423 ####[facility] [place] [address], PQKLUE92.3 trVwzv19.0-32.0The [facility] HealthComment on above:Performed By: #### 16759, 58240, 06351, 95046, 00533 ####[facility] [place] [address], [facility] – MIAMIHC mass conc (RBC)33.3 g/xIYyappn33.0-36.0The [facility] HealthComment on above:Performed By: #### 34702, 40835, 44516, 88274, 00834 ####[facility] [place] [address], XRSFMQ95.8 kTJnjigf82.0-100.0The [facility] HealthComment on above:Performed By: #### 39432, 57211, 47420, 80459, 42134 ####[facility] [place] [address], [facility] SOUTHER[facility] MEXICOPLAT PBG009 Thou/vj2Fzzjqq064-532Sov [facility] HealthComment on above:Performed By: #### 19210, 26953, 37264, 34040, 80940 ####[facility] [place] [address], [facility] WBC (Leukocytes)27.7 Thou/aq7Rtoj3.0-10.0The [facility] Comment on above:Performed By: #### 61693, 35459, 91797, 82406, 42177 ####[facility] [place] [address], [facility] Erythrocyte distribution width Auto Ratio (RBC)14.6 %Urlckg71.5-16.9The [facility] HealthComment on above:Order Comment: No: Do not add to previous drawPerformed By: #### 97301, 92654, 99266, 33006, 95452 ####[facility] [place] [address], [facility] Erythrocytes (RBC)4.91 mill/zn1Uzbhhr8.30-5.90The [facility] HealthComment on above:Order Comment: No: Do not add to previous drawPerformed By: #### 59414, 59367, 55798, 02806, 99734 ####[facility] [place] [address], [facility] MEXICOHematocrit (HCT)50.1 %Normal 39.0-55.0The [facility] HealthComment on above:Order Comment: No: Do not add to previous drawPerformed By: #### 68335, 28269, 93037, 56777, 73965 ####[facility] [place] [address], [facility] MEXICOHemoglobin mass conc (Bld)16.2 g/zZNfmeoi74.9-16.3The [facility] HealthComment on above:Order Comment: No: Do not add to previous drawPerformed By: #### 73705, 20613, 23689, 18910, 98962 ####[facility] [place] [address], BZFMSI38.0 pgHigh 24.0-32.0The [facility] HealthComment on above:Order Comment: No: Do not add to previous drawPerformed By: #### 23602, 46842, 87834, 19430, 28820 ####[facility] [place] [address], [facility] MIAMIHC mass conc (RBC)32.2 g/mCMhracu85.0-36.0The [facility] HealthComment on above:Order Comment: No: Do not add to previous draw Performed By: #### 14366, 64742, 61760, 09988, 89835 ####[facility] [place] [address], PGNCWZ958.2 lZPebd88.0-100.0 The [facility] HealthComment on above:Order Comment: No: Do not add to previous drawPerformed By: #### 11951, 08667, 00152, 02933, 09971 ####[facility] [place] [address], [facility] PLAT FVX118 Thou/rm3Ahviya874-723Fbx [facility] HealthComment on above:Order Comment: No: Do not add to previous drawPerformed By: #### 85189, 13500, 36945, 30022, 43533 ####[facility] [place] [address], [facility] MEXICOWBC (Leukocytes)9.9 Thou/fa1Qjwlmr2.0-10.0The [facility] HealthComment on above:Order Comment: No: Do not add to previous drawPerformed By: #### 62735, 30001, 87453, 09508, 74350 ####[facility] [place] [address], [facility] LIVER BATTERYon 27-53-1404Ieaklwo aminotransferase (ALT)36 U/LNormal7-52The [facility] HealthComment on above:Order Comment: No: Do not add to previous drawPerformed By: #### 24991, 39392, 70882, 88578, 24081 ####[facility] [place] [address], [place] Albumin4.1 g/dLNormal3.5-5.7The [facility] HealthComment on above:Order Comment: No: Do not add to previous drawPerformed By: #### 63271, 73727, 89835, 85745, 02242 ####[facility] [place] [address], USAALKALINE DKYPKI51 IU/DVecaua23-433Gor [facility] HealthComment on above:Order Comment: No: Do not add to previous drawPerformed By: #### 08891, 04045, 93945, 98758, 41341 ####[facility] [place] [address], USAAspartate aminotransferase (AST)35 U/YWxeuas01-86Xbu [facility] Comment on above:Order Comment: No: Do not add to previous drawPerformed By: #### 23714, 02372, 29198, 42793, 90169 ####[facility] [place] [address], USABilirubin (direct)0.1 mg/dLNormal 0.0-0.2The [facility] HealthComment on above:Order Comment: No: Do not add to previous drawPerformed By: #### 36227, 01323, 58272, 74739, 34455 ####[facility] [place] [address], USABilirubin (total)1.1 mg/dLHigh0.3-1.0The [facility] HealthComment on above:Order Comment: No: Do not add to previous drawPerformed By: #### 19253, 38706, 28422, 86119, 80001 ####[facility] [place] [address], USAProtein7.2 g/dLNormal6.0-8.3The [facility] HealthComment on above:Order Comment: No: Do not add to previous drawPerformed By: #### 29155, 06374, 74620, 61047, 05051 ####[facility] [place] [address], [facility] MAGNESIUM BLOODon 48-74-1529Lzagzjwlx9.5 mg/dLNormal1.9-2.7The [facility] HealthComment on above:Performed By: #### 31415, 46434, 30859, 29445, 82276 ####[facility] [place] [address], [facility] MEXICOOperative Reporton [id number] ReportMR#: [id number] [facility]sten Haywood Room #: 3AB [id number] Discharge Date: Birthdate: 1955 OPERATIVE REPORTDATE OF SURGERY: 12/19/2016SURGEON: Torsten Yepez M.D.ASSISTANTS:JH Gerard who assisted with the case as there was no appropriatelyqualified cardiovascular surgical tech available for the surgery and the harvesting ofvein.KASI Wakefield.Mag Serra DANESTHESIOLOGIST:Kae Hall MDANESTHESIA:General.PREOPERATIVE DIAGNOSES:1. Coronary artery occlusive disease.2. Cardiomyopathy.POSTOPERATIVE DIAGNOSES:1. Coronary artery occlusive disease.2. Cardiomyopathy.PROCEDURE: Urgent coronary artery bypass grafting x5 with a left internalmammary artery to the LAD, a sequential left radial artery graft to thediagonal and the ramus intermedius, right radialartery graft to the PC2txvzhgtun vein graft to the PDA, harvesting of the left upper extremityradial artery, harvesting of the right upper extremity radial artery,endoscopic harvesting of the left greater saphenous vein.INDICATIONS: Severe multivessel coronary artery occlusive disease.Diminished left ventricular ejection fraction in the patient, who presentedto the hospital with severe CHF characterized by significant fluidoverload, wedge pressure of 30. Following appropriate and aggressivediure sis, and anti-failure regimen, the patient's hemodynamics improvedsubstantially. The patient underwent diagnostic cardiac catheterization.This documented severe multivessel coronary artery occlusive disease.Following informed consent and discussing the patient's options, thepatient decided to proceed with surgical myocardial reconstruction.INTRAOPERATIVE FINDINGS: The patient's LV function preoperatively wasapproximately 15%-20%. The patient's postoperative ejection fraction wasapproximately 25%. The patient's conduits were of adequate caliber andquality. The ascending aorta was without significant calcifications. Theaortic valve was leaking, had mild aortic insufficiency. The patient'scoron maxine arteries were severely and heavily diseased along [...] distal disease was also noted. The OM1 kiko intramyocardialvessel, it was difficult to locate, it was approximately 2 mm in diameter.The PDAwas a 3 mm vessel with excellent outflow. Transit time Doppler flowanalysis documented good flow from all coronary grafts. In addition, thepatient required low-dose epinephrine to separate from cardio pulmonarybypass. The patient's PA pressures were approximately 40/20 preoperativelyand this remained at those levels postoperatively.DESCRIPTION OF PROCEDURE:Following informed consent, the patient was brought to the operating room,placed on the operating room table in the supine position. Following induction of the general endotracheal anesthesia and placement ofappropriate hemodynamic monitoringcatheters, the patient's chest, abdomen,upper and lower extremities [...] anastomosed to the targetvessels in end-to-side or reep-kr-axcccrgowyj using running 7-0 Prolenesutures. The heel and toe of each anastomosis were probed. Each anastomosiswas flushed and each anastomosis was completed. The left internal mammaryartery pedicle wasattached to the epicardium using 5-0 Prolene sutures.Following completion of the last distal anastomosis, the aorta wasunclamped. The proximal anastomoses were carried out using a side- bitingclamp placed on the ascending aorta with exclusion [...] was drained with 2 Ritesh drains. The pleuralcavitywas drained with a Ritesh drain.Following optimization of [...] 12/19/2016/02:29 P/Torsten Yepez M.D.Date Trans: 12/19/2016 04:17 P/mmoDN_JN:[id number]: Torsten Yepez M.D. [facility] [place] [id number] PERFUSION BLOOD PANELon 70-52-2072PQZQ EXCESS-3.0 mmol/LLow-2.0-3.0The [facility] HealthComment on above:Performed By: #### 91021, 81248, 34376, 53779, 93983 ####[facility] [place] [address], LKCBG298.1 klYzPvv70.0-45.0The [facility] HealthComment on above:Performed By: #### 35204, 06943, 01612, 20120, 90065 ####[facility] [place] [address], [facility] MEXICOGlucose mass tnbt975 mg/oDIyjd47-257Pdo [facility] HealthComment on above:Performed By: #### 57619, 31378, 74003, 20896, 04267 ####[facility] [place] [address], [facility] Hematocrit (HCT)36 %Hav63-05Fle [facility] HealthComment on above:Performed By: #### 75205, 18881, 67149, 84171, 00883 ####[facility] [place] [address], [facility] MEXICOHemoglobin mass conc (Bld)12.2 g/wQVnmjmz59.0-17.0The [facility] HealthComment on above:Performed By: #### 98620, 53473, 57016, 73574, 22378 ####[facility] [place] [address], USAIONIZED CALCIUM 1.18 mmol/LNormal1.12-1.32The [facility] HealthComment on above:Performed By: #### 96186, 24547, 73602, 44599, 66514 ####[facility] [place] [address], USAOxygen in arterial blood80.0 mm[Hg]Iqetsb68.0-105.0The [facility] HealthComment on above:Performed By: #### 66567, 28529, 00968, 33192, 75631 ####[facility] [place] [address], USApH of blood7.41 [pH]Normal7.35-7.45The [facility] HealthComment on above: Performed By: #### 02894, 59346, 56175, 42434, 17659 ####[facility] [place] [address], USAPotassium molar conc4.4 mmol/LNormal3.5-4.9The [facility] HealthComment on above: Performed By: #### 48439, 77990, 78760, 16239, 56322 ####[place] [address] [place] [address], SULHlolck217 mmol/LNormal 138-146The [facility] HealthComment on above:Performed By: #### 36112, 70722, 16242, 53780, 23984 ####[facility] [place] [address], USABASE EXCESS-1.0 mmol/LNormal -2.0-3.0The [facility] HealthComment on above:Performed By: #### 84115, 53008, 72009, 64971, 30030 ####[place] [address] [place] [address], HLBWS072.3 prTjAgdwip25.0-45.0The [facility] HealthComment on above:Performed By: #### 54614, 84375, 70316, 14152, 85654 ####[facility] [place] [address], [facility] MEXICOGlucose mass etaq393 mg/cDZtal90-654Yax [facility] HealthComment on above:Performed By: #### 26839, 46478, 30082, 79168, 59365 ####[facility] [place] [address], [facility] MEXICOHematocrit (HCT)33 %Etl38-08Bgm [facility] Comment on above:Performed By: #### 47504, 42932, 53480, 61383, 77579 ####[address] [place] [address], [facility] Hemoglobin mass conc (Bld)11.2 g/dLLow12.0-17.0The [facility] HealthComment on above:Performed By: #### 18822, 01977, 85067, 49783, 52493 ####[place] [address] [facility].[address] IONIZED CALCIUM1.25 mmol/LNormal1.12-1.32The [facility] Comment on above:Performed By: #### 69075, 24661, 00490, 82924, 97427 ####[address] Oxygen in arterial blood61.0 mm[Hg]Low80.0-105.0The [facility] HealthComment on above:Performed By: #### 54245, 51133, 49947, 04067, 27475 ####[address] [place] [address], [facility] pH of blood7.35 [pH]Normal7.35-7.45[facility] [place] [facility] Comment on above:Performed By: #### 34252, 94312, 65046, 07017, 57212 ####[facility] [place] [address], [facility] Potassium molar conc4.3 mmol/LNormal3.5-4.9The [facility] HealthComment on above:Performed By: #### 31226, 94097, 13122, 18250, 80561 ####[place] [address] [place] [address], [facility] Mrhdvh103 mmol/NAee614-836Wdf [facility] HealthComment on above:Performed By: #### 09185, 80672, 72687, 39475, 88866 ####[address] [place] [address], [facility] MEXICOBASE EXCESS2.0 mmol/LNormal-2.0-3.0The [facility] HealthComment on above: Performed By: #### 67632, 32435, 33480, 64145, 49506 ####[address] [place] [address], RUOKG214.8 mmHgNormal 35.0-45.0The [facility]ma HealthComment on above:Performed By: #### 03385, 88286, 95523, 45350, 05845 ####[address] [place] [address], [facility] MEXICOGlucose mass osbr138 mg/dLHigh 70-105The [facility] HealthComment on above:Performed By: #### 58231, 47911, 85013, 66229, 00718 ####[address] [place] [address], [facility] MEXICOHematocrit (HCT)38 %Gtuwrj73-56Xhe [facility] HealthComment on above:Performed By: #### 70754, 02642, 20039, 18942, 48377 ####[address] [place] [address], [facility] MEXICOHemoglobin mass conc (Bld)12.9 g/uANuaaxv40.0-17.0The Summa HealthComment on above:Performed By: #### 81323, 36858, 72947, 17650, 80354 ####[facility] [place] [address], [facility] NEW MEXICOIONIZED CALCIUM1.10 mmol/LLow1.12-1.32The Summa HealthComment on above:Performed By: #### 78227, 09863, 75076, 65570, 11891 ####[facility] [place] [address], [facility] MEXICOOxygen in arterial deomj986.0 mm[Hg]High80.0-105.0The [facility]ma HealthComment on above:Performed By: #### 73789, 98791, 63517, 81026, 51986 ####[facility] [place] [address], [facility] MEXICOpH of blood7.44 [pH]Normal7.35-7.45The Summa HealthComment on above:Performed By: #### 73902, 51363, 74786, 13785, 64645 ####[place] [id number] [place] [address], [facility] Potassium molar conc5.0 mmol/LHigh3.5-4.9The [facility] Comment on above:Performed By: #### 46550, 37054, 02400, 56771, 37853 ####[facility] [place] [address], [facility] Stnvdj208 mmol/ISqz986-940Rpc Summa HealthComment on above:Performed By: #### 67964, 25384, 96610, 35511, 55796 ####[place] [id number] [place] [address], [facility] MEXICOBASE EXCESS1.0 mmol/LNormal-2.0-3.0The Summa HealthComment on above: Performed By: #### 87469, 91411, 64671, 39873, 00918 ####[facility] [place] [address], NXDMV005.1 mmHgNormal 35.0-45.0The Summa HealthComment on above:Performed By: #### 97153, 68923, 23594, 77860, 22900 ####[facility] [place] [address] [place] [address], [facility] MEXICOGlucose mass phmm031 mg/dLHigh 70-105The Summa HealthComment on above:Performed By: #### 23700, 16526, 11913, 45234, 66954 ####[address] [place] [address], [facility] MEXICOHematocrit (HCT)37 %Duw28-89Qtq Summa HealthComment on above:Performed By: #### 82453, 50568, 28566, 72190, 21908 ####[facility] [place] [address] [place] [address], [facility] MEXICOHemoglobin mass conc (Bld)12.6 g/pLTesjux11.0-17.0The Summa HealthComment on above:Performed By: #### 38425, 73828, 03491, 48382, 33772 ####[facility] [place], [place] [address] [address], USAIONIZED CALCIUM1.11 mmol/LLow1.12-1.32The [facility]ma HealthComment on above:Performed By: #### 90936, 74604, 69533, 30626, 78198 ####[facility] [place] [address] [place] [address], USAOxygen in arterial lpekj408.0 mm[Hg]High80.0-105.0The University of Terrell Medical CenterComment on above:Performed By: #### 24988, 77217, 08247, 11621, 44063 ####[facility] [place] [address], [facility] MEXICOpH of blood7.43 [pH]Normal7.35-7.45The Summa HealthComment on above:Performed By: #### 08706, 93975, 16499, 22330, 88402 ####[facility] [place] [address], [facility] Potassium molar conc5.1 mmol/LHigh3.5-4.9The [facility] Comment on above:Performed By: #### 31347, 95545, 67715, 90311, 48010 ####[place] [address] [place] [address], [facility] Piruzl449 mmol/ADjf705-295Pnp [facility] HealthComment on above:Performed By: #### 01591, 61821, 48102, 29325, 10369 ####[address] [place] [address], [facility] MEXICOBASE EXCESS3.0 mmol/LNormal-2.0-3.0The Summa HealthComment on above: Performed By: #### 85420, 86034, 24328, 87540, 61012 ####[address] [place] [address], DIFQS614.8 mmHgNormal 35.0-45.0The Summa HealthComment on above:Performed By: #### 35552, 80901, 51552, 91951, 10886 ####[address] [place] [address], [facility] MEXICOGlucose mass lfkm234 mg/dLHigh 70-105The [facility]ma HealthComment on above:Performed By: #### 19744, 51837, 79151, 33879, 00565 ####[address] [place] [address], [facility] MEXICOHematocrit (HCT)38 %Orxhvh91-57Qzz [facility] HealthComment on above:Performed By: #### 93237, 24663, 79813, 87984, 68260 ####[address] [place] [address], [facility] MEXICOHemoglobin mass conc (Bld)12.9 g/eIGjifgi35.0-17.0The [facility]ma HealthComment on above:Performed By: #### 56834, 97434, 31601, 87413, 64045 ####[address] [place] [address], [facility] MEXICOIONIZED CALCIUM1.07 mmol/LLow1.12-1.32The [facility]ma HealthComment on above:Performed By: #### 87673, 08111, 18248, 07748, 70119 ####[address] [place] [address], [facility] MEXICOOxygen in arterial khzme956.0 mm[Hg]High80.0-105.0The Summa HealthComment on above:Performed By: #### 95842, 22679, 35961, 31316, 05240 ####[address] [place] [address], [facility] MEXICOpH of blood7.44 [pH]Normal7.35-7.45The [facility]ma HealthComment on above:Performed By: #### 53538, 62767, 49275, 52383, 77503 ####[address] [place] [address], [facility] Potassium molar conc5.3 mmol/LHigh3.5-4.9The [facility] Comment on above:Performed By: #### 79988, 48940, 92818, 99123, 77266 ####[place] [address] [place] [address], [facility] Uwomah266 mmol/QOto409-404Zze [facility]ma HealthComment on above:Performed By: #### 54435, 67192, 43994, 19849, 50266 ####[facility] [place] [address], [facility] MEXICOBASE EXCESS3.0 mmol/LNormal-2.0-3.0The Summa HealthComment on above: Performed By: #### 16169, 17127, 43426, 55590, 82055 ####[facility] [place] [address].[place] [address], DDBYG721.8 mmHgNormal 35.0-45.0The Summa HealthComment on above:Performed By: #### 84798, 25276, 16694, 11656, 20404 ####[address] [place] [address], [facility] MEXICOGlucose mass kffb006 mg/dLHigh 70-105The Summa HealthComment on above:Performed By: #### 26052, 19335, 17273, 77213, 31295 ####[address] [place] [address], [facility] MEXICOHematocrit (HCT)39 %Ycniln41-72Wxt [facility] HealthComment on above:Performed By: #### 29919, 54263, 35616, 33266, 45787 ####[address] [place] [address], [facility] MEXICOHemoglobin mass conc (Bld)13.3 g/tHIbduxp84.0-17.0The [facility] HealthComment on above:Performed By: #### 79753, 71675, 59795, 52974, 19288 ####[address] [place] [address], [facility] MEXICOIONIZED CALCIUM1.11 mmol/LLow1.12-1.32The [facility] HealthComment on above:Performed By: #### 46321, 00174, 69493, 80719, 93023 ####[facility] [place] [address], [facility] MEXICOOxygen in arterial .0 mm[Hg]High80.0-105.0The [facility]ma HealthComment on above:Performed By: #### 09842, 51735, 82537, 35684, 20366 ####[facility] [place] [address], [facility] MEXICOpH of blood7.46 [pH]High7.35-7.45The [facility] HealthComment on above:Performed By: #### 32586, 29082, 97479, 78904, 79064 ####[facility] [place] [address], [facility] Potassium molar conc5.2 mmol/LHigh3.5-4.9The [facility] Comment on above:Performed By: #### 87410, 11969, 66276, 80313, 50136 ####[facility] [place] [address], [facility] Ckplle912 mmol/DAmp345-438Ngy [facility] HealthComment on above:Performed By: #### 04023, 15054, 66701, 33103, 82125 ####[address] [place] [address], [facility] MEXICOBASE EXCESS3.0 mmol/LNormal-2.0-3.0The Summa HealthComment on above: Performed By: #### 61330, 97001, 16174, 40699, 27788 ####[facility] [place] [address], HBFXE776.6 mmHgNormal 35.0-45.0The Summa HealthComment on above:Performed By: #### 18227, 41816, 94581, 22501, 82672 ####[facility] [place] [address], [facility] MEXICOGlucose mass fyfu281 mg/dLHigh 70-105The [facility] HealthComment on above:Performed By: #### 10036, 36309, 42810, 43133, 59253 ####[facility] [place] [address], [facility]EXICOHematocrit (HCT)38 %Yfkzvq42-48Bnh [facility] HealthComment on above:Performed By: #### 33173, 82736, 27486, 93180, 11788 ####[facility] [place] [address], [facility] MEXICOHemoglobin mass conc (Bld)12.9 g/mDJwrifo54.0-17.0The [facility] HealthComment on above:Performed By: #### 89981, 73472, 57195, 54395, 66901 ####[facility] [place] [address], [facility] MEXICOIONIZED CALCIUM1.06 mmol/LLow1.12-1.32The [facility] HealthComment on above:Performed By: #### 21012, 94873, 09588, 87806, 71477 ####[facility] [place] [address], [facility] MEXICOOxygen in arterial hzurc091.0 mm[Hg]High80.0-105.0The [facility] HealthComment on above:Performed By: #### 56342, 36324, 09295, 65361, 78172 ####[facility] [place] [address], USApH of blood7.42 [pH]Normal7.35-7.45The [facility] HealthComment on above:Performed By: #### 21162, 84326, 43308, 92357, 21670 ####[facility] [place] [address], [place] Potassium molar conc4.9 mmol/LNormal3.5-4.9The [facility] HealthComment on above:Performed By: #### 50361, 91401, 24322, 65162, 73342 ####[address] [place] [address], [facility] Qnhyfq892 mmol/DDau957-458Zoa [facility] HealthComment on above:Performed By: #### 71778, 40824, 66616, 84698, 71644 ####[address] [place] [address], [facility] MEXICOBASE EXCESS-1.0 mmol/LNormal-2.0-3.0The [facility] HealthComment on above: Performed By: #### 07624, 13323, 14525, 56671, 32993 ####[address] [place] [address], MIKVX610.8 htScJitt93.0-45.0 The [facility] HealthComment on above:Performed By: #### 36185, 67906, 43260, 93172, 42142 ####[address] [place] [address], [facility] MEXICOGlucose mass uboc821 mg/iYKdwu10-196Ctn [facility] HealthComment on above:Performed By: #### 38112, 62313, 76626, 48417, 78789 ####[address] [place] [address], [facility] MEXICOHematocrit (HCT)45 %Ndsyzr81-00Uvd [facility] HealthComment on above:Performed By: #### 29099, 79147, 93568, 00196, 97023 ####[address] [place] [address], [facility] MEXICOHemoglobin mass conc (Bld)15.3 g/hYMbcjez22.0-17.0The [facility] HealthComment on above:Performed By: #### 91522, 24281, 74458, 67130, 41004 ####[facility] [place] [address], [facility] MEXICOIONIZED CALCIUM1.21 mmol/LNormal1.12-1.32The [facility] HealthComment on above:Performed By: #### 97274, 59621, 24808, 36078, 02773 ####[facility] [place] [address], [facility] MEXICOOxygen in arterial wghef643.0 mm[Hg]High80.0-105.0The [facility] HealthComment on above:Performed By: #### 50177, 55965, 21854, 05109, 46456 ####[facility] [place] [address], [facility] MEXICOpH of blood7.32 [pH]Low7.35-7.45The [facility] HealthComment on above:Performed By: #### 38832, 33621, 53655, 18278, 96062 ####[place] [address] [place] [address], [facility] Potassium molar conc4.4 mmol/LNormal3.5-4.9The [facility] HealthComment on above:Performed By: #### 93806, 99494, 31513, 81913, 69646 ####[address] [place] [address], [facility] Kjfgfn648 mmol/ENtn052-204Hza [facility] HealthComment on above:Performed By: #### 19282, 06172, 96215, 72601, 06438 ####[place] [address] [place] [address], [facility] MEXICOBASE EXCESS1.0 mmol/LNormal-2.0-3.0The [facility] HealthComment on above: Performed By: #### 43325, 20365, 33264, 84415, 44523 ####[facility] [place] [address], ZNTWJ811.1 mmHgNormal 35.0-45.0The Summa HealthComment on above:Performed By: #### 93426, 95188, 30973, 61756, 35576 ####[place] [address] [place] [address], [facility] MEXICOGlucose mass xhcd391 mg/dLHigh 70-105The [facility] HealthComment on above:Performed By: #### 88681, 23864, 55321, 04453, 28519 ####[facility] [place] [address], [facility] MEXICOHematocrit (HCT)45 %Mxhmxy96-78Trs [facility] HealthComment on above:Performed By: #### 43678, 55249, 18618, 07016, 67184 ####[place] [address] [place] [address], [facility] MEXICOHemoglobin mass conc (Bld)15.3 g/aPIhjtgl32.0-17.0The [facility] HealthComment on above:Performed By: #### 65475, 55701, 19180, 64173, 45407 ####[place] [address] [place] [address], USAIONIZED CALCIUM1.19 mmol/LNormal1.12-1.32The [facility] HealthComment on above:Performed By: #### 65736, 46549, 46865, 81374, 40931 ####[place] [address] [place] [address], USAOxygen in arterial blood97.0 mm[Hg]Wqkrmw01.0-105.0The [facility] HealthComment on above:Performed By: #### 31650, 99887, 48295, 53915, 19164 ####[place] [address] [place] [address], USApH of blood7.39 [pH]Normal7.35-7.45The [facility] HealthComment on above:Performed By: #### 04734, 34587, 67227, 98552, 83814 ####[facility] [place] [address], USAPotassium molar conc4.3 mmol/LNormal3.5-4.9The [facility] HealthComment on above:Performed By: #### 05741, 42655, 30934, 08386, 26132 ####[facility] [place] [address], LDUNdkckj563 mmol/XAbh612-163Jvn [facility] Comment on above:Performed By: #### 25108, 25294, 33421, 77394, 93391 ####[facility] [place] [address], [place] POC GLUCOSE LABon 23-21-8911Dtuptkv mass mixl122 mg/eRVkea83-338Snf [facility] HealthComment on above:Performed By: #### 46307 ####[facility] [place] [address], USAGlucose mass ravs077 mg/sBCdsn43-442Zmf [facility] HealthComment on above: Performed By: #### 27448 ####[facility] [place] [address], USAGlucose mass lyhz181 mg/fSArie38-330Xkv [facility] HealthComment on above:Performed By: #### 18621 ####[facility] [place] [address], USAGlucose mass conc 144 mg/mPLkxa88-942Dbi [facility] HealthComment on above: Performed By: #### 23188 ####[facility] [place] [address], USAGlucose mass sxvm429 mg/hRDdaw96-386Tmd [facility] HealthComment on above:Performed By: #### 55844 ####[facility] [place] [address], [facility] MEXICOGlucose mass conc 153 mg/aXWjux14-524Tre [facility] HealthComment on above: Performed By: #### 53262 ####[facility] [place] [address].[place] [address], [facility] MEXICOGlucose mass jrwj104 mg/yBHdjh48-428Iql [facility] HealthComment on above:Performed By: #### 69665 ####[address] [address], [facility] MEXICOGlucose mass conc 113 mg/gHPjal32-812Kcz [facility] HealthComment on above: Performed By: #### 65510, 26764, 18427, 41814, 35163 ####[facility] [place] [address], [facility] MEXICOPROTHROMBIN TIMEon 51-66-7772ZMZ Coag RelTime (PPP)1.07 {INR}Normal0.91-1.16The [facility]ma HealthComment on above:Order Comment: No: Do not add to previous drawResult Comment: ACCCP RECOMMENDED INR FOR WARFARIN THERAPY CONDITION INRPROPHYLAXIS OF VENOUS THROMBOSIS 2-3(HIGH-RISK SURGERY)TREATMENT OF VENOUS THROMBOSIS 2-3TREATMENT OF PULMONARY EMBOLISM 2-3PREVENTION OF SYSTEMIC EMBOLISM: 2-3 ACUTE MYOCARDIAL INFARCTION TISSUE HEART VALVES VALVULAR HEART DISEASE ATRIAL FIBRILLATION RECURRENT SYSTEMIC EMBOLISMMECHANICAL HEART VALVE 2.5-3.5 FROM: ORAL ANTICOAGULANTS. MECHANISM OF ACTION, CLINICALEFFECTIVENESS, AND OPTIMAL THERAPEU TIC RANGE. [id number];108:231S-246S.Performed By: #### 19304, 28147, 05852, 78197, 71262 ####[facility] [place] [address], USAProthrombin time (PT) Coag time (PPP)13.9 yGhmwno03.3-14.8The [facility] HealthComment on above:Order Comment: No: Do not add to previous drawResult Comment: ALL RESULTS MUST BE INTERPRETED WITH RESPECT TO BLOOD DRAWING ARTIFACTOR DILUTION ERROR OF ANTICOAGULANT AT THE TIME OF SAMPLING.Performed By: #### 34238, 47440, 76249, 06285, 48144 ####[facility] [place] [address], USAURINALYSISon 27-95-3757Pxuupdeis (total)NegativeNormalNEGATIVEThe [facility]ma HealthComment on above:Order Comment: No: Do not add to previous draw Performed By: #### 71015, 29941, 16112, 35775, 69935 ####[facility] [place] [address], USABLOODNegativeNormal NEGATIVEThe Summa HealthComment on above:Order Comment: No: Do not add to previous drawPerformed By: #### 12826, 31990, 69336, 45912, 33880 ####[facility] [place] [address], USAGlucose mass concNegativeNormalNEGATIVEThe [facility]ma HealthComment on above:Order Comment: No: Do not add to previous draw Performed By: #### 90521, 99982, 44146, 98953, 73781 ####[facility] [place] [address], USAKETONENegativeNormal NEGATIVEThe [facility]ma HealthComment on above:Order Comment: No: Do not add to previous drawPerformed By: #### 74515, 66816, 95359, 87095, 93347 ####[facility] [place] [address], USALEUK ESTERNegativeNormalNEGATIVEThe Summa HealthComment on above:Order Comment: No: Do not add to previous drawPerformed By: #### 95410, 54904, 07621, 27030, 30073 ####[facility] [place] [address], USAMUCUS THREADSFEWAbnormalNONE SEEN The [facility]ma HealthComment on above:Order Comment: No: Do not add to previous drawPerformed By: #### 86608, 46392, 79670, 34819, 52164 ####[facility] [place] [address], [place] pH of blood5.0 [pH]Normal5.0-8.0The [facility] HealthComment on above:Order Comment: No: Do not add to previous drawPerformed By: #### 90078, 91747, 89916, 29107, 50330 ####[facility] [place] [address], USAProteinNegativeNormalNEGATIVEThe Summa HealthComment on above:Order Comment: No: Do not add to previous drawPerformed By: #### 08767, 47401, 16814, 35007, 06098 ####[facility] [place] [address], USASPEC GRAV1.023High 1.015-1.020The [facility] HealthComment on above:Order Comment: No: Do not add to previous drawPerformed By: #### 40877, 88788, 37631, 09488, 77988 ####[facility] [place] [address], USAUrine, appearanceCLEARNormalCLEARThe [facility]ma HealthComment on above:Order Comment: No: Do not add to previous drawPerformed By: #### 09735, 65544, 93671, 96770, 50283 ####[facility] [place] [address], USAUrine, colorYELLOWNormalYELLOWThe [facility]ma HealthComment on above:Order Comment: No: Do not add to previous drawPerformed By: #### 14897, 29631, 88057, 72012, 39013 ####[facility] [place] [address], [facility] Urine, nitrite presenceNegativeNormalNEGATIVEThe [facility] HealthComment on above:Order Comment: No: Do not add to previous drawPerformed By: #### 90802, 56331, 62674, 33730, 08018 ####[facility] [place] [address], [facility] MEXICOWBC UANONE SEENAbnormal0-0The [facility] HealthComment on above:Order Comment: No: Do not add to previous drawPerformed By: #### 08168, 12145, 38120, 18371, 87785 ####[facility] [place] [address], [facility] BASIC METABOLIC PANELon 49-85-4392Nycukmy7.3 mg/dLNormal8.6-10.3The [facility] HealthComment on above:Order Comment: << ON ADMISSION If not done in ED>>No: Do not add to previous drawPerformed By: #### 50645, 48859, 75310, 18961, 80482 ####[facility] [place] [address], OJZYimzzpug41 mmol/ARsbalx91-803Hmr [facility] HealthComment on above:Order Comment: << ON ADMISSION If not done in ED>>No: Do not add to previous drawPerformed By: #### 45480, 72409, 49535, 31258, 81022 ####[facility] [place] [address], TJYSP251 mmol/KVppeop40-75Xul [facility] Comment on above:Order Comment: << ON ADMISSION If not done in ED>>No: Do not add to previous drawPerformed By: #### 39500, 61156, 03375, 30391, 61549 ####[facility] [place] [address], [facility] Creatinine1.30 mg/dLNormal0.70-1.30The [facility] Comment on above:Order Comment: << ON ADMISSION If not done in ED>>No: Do not add to previous drawPerformed By: #### 11767, 35381, 07026, 39492, 11477 ####[facility] [facility] eGFR (black)mL/min/{1.73_m2}Normal>60The [facility] Comment on above:Order Comment: << ON ADMISSION If not done in ED>>No: Do not add to previous drawPerformed By: #### 56516, 10694, 55147, 14666, 33169 ####[facility] [facility] eGFR (non-black)57 ml/min/1.73sq mAbnormal>60The [facility] HealthComment on above:Order Comment: << ON ADMISSION If not done in ED>>No: Do not add to previous drawPerformed By: #### 35437, 47911, 26668, 36200, 05833 ####[facility] [facility] [place] [address], [facility] Glucose mass conc99 mg/gDPfmxtn59-686Lle [facility] Comment on above:Order Comment: << ON ADMISSION If not done in ED>>No: Do not add to previous drawPerformed By: #### 98563, 25291, 22261, 66510, 54953 ####[facility] [facility] Potassium molar conc4.5 mmol/LNormal3.5-5.1The [facility] HealthComment on above:Order Comment: << ON ADMISSION If not done in ED>>No: Do not add to previous drawPerformed By: #### 31233, 38382, 05488, 81761, 86754 ####[facility] [facility] Antqha691 mmol/WJrsode983-527Zvi [facility] HealthComment on above:Order Comment: << ON ADMISSION If not done in ED>>No: Do not add to previous drawPerformed By: #### 43570, 45177, 24053, 81233, 14340 ####[facility] [facility]Urea mg/dLHigh7-25The [facility] HealthComment on above:Order Comment: << ON ADMISSION If not done in ED>>No: Do not add to previous draw Performed By: #### 97025, 45642, 84008, 69162, 60931 ####[facility] [place] [address], [facility] MEXICOCBC W/DIFFon 12-18-2016 Basophils Auto #/vol (Bld)0.7 %Normal0.0-2.0The [facility] HealthComment on above:Order Comment: << ON ADMISSION If not done in ED>>No: Do not add to previous drawPerformed By: #### 48272, 55792, 88973, 48543, 80208 ####[facility] [facility] [place] [address], [facility] Eosinophils/100 leukocytes4.6 %Normal0.0-5.0The [facility] HealthComment on above:Order Comment: << ON ADMISSION If not done in ED>>No: Do not add to previous drawPerformed By: #### 90561, 66772, 92290, 17991, 07441 ####[facility] [place] [address], [place] Erythrocyte distribution width Auto Ratio (RBC)14.8 %Zccvuo92.5-16.9The [facility] HealthComment on above:Order Comment: << ON ADMISSION If not done in ED>>No: Do not add to previous drawPerformed By: #### 71960, 51146, 32894, 44955, 56913 ####[facility] [place] [address], [facility] MEXICOErythrocytes (RBC)4.86 mill/qe9Trzxwq 4.30-5.90The [facility] HealthComment on above:Order Comment: << ON ADMISSION If not done in ED>>No: Do not add to previous drawPerformed By: #### 78044, 01450, 97223, 08499, 79394 ####[facility] [place] [address], [facility] MEXICOHematocrit (HCT)49.4 %Normal 39.0-55.0The [facility]ma HealthComment on above:Order Comment: << ON ADMISSION If not done in ED>>No: Do not add to previous drawPerformed By: #### 90608, 44518, 40658, 19633, 32399 ####[facility] [place] [address], [facility] MEXICOHemoglobin mass conc (Bld)16.0 g/hSIpnavn33.9-16.3The [facility] HealthComment on above:Order Comment: << ON ADMISSION If not done in ED>>No: Do not add to previous draw Performed By: #### 12063, 39302, 44187, 99898, 00406 ####[facility] [place] [address], [facility] MEXICOLymphocytes/100 leukocytes 27.1 %Vyqqll97.0-40.0The [facility] HealthComment on above: Order Comment: << ON ADMISSION If not done in ED>>No: Do not add to previous drawPerformed By: #### 24437, 56827, 03063, 58934, 70587 ####[facility] [place] [address], XUCODM74.0 pgHigh 24.0-32.0The [facility] HealthComment on above:Order Comment: << ON ADMISSION If not done in ED>>No: Do not add to previous drawPerformed By: #### 33333, 46472, 84075, 99781, 47361 ####[facility] [place] [address], [facility] – MIAMIHC mass conc (RBC)32.5 g/dL Hvjnau90.0-36.0The [facility]ma HealthComment on above:Order Comment: << ON ADMISSION If not done in ED>>No: Do not add to previous draw Performed By: #### 13210, 27784, 12724, 76653, 35486 ####[facility] [place] [address], VHNMUO646.6 gCXqoc11.0-100.0 The [facility]ma HealthComment on above:Order Comment: << ON ADMISSION If not done in ED>>No: Do not add to previous drawPerformed By: #### 17880, 76500, 04648, 63570, 27689 ####[facility] [place] [address], [facility] MEXICOMETHODNormal RBC MorphologyNoPremier Healthe Summa HealthComment on above:Order Comment: << ON ADMISSION If not done in ED>>No: Do not add to previous drawPerformed By: #### 94051, 73617, 10230, 57654, 63102 ####[facility] [place] [address], AYYZAUTG41.7 %High2-8The [facility]ma HealthComment on above:Order Comment: << ON ADMISSION If not done in ED>>No: Do not add to previous drawPerformed By: #### 66133, 19023, 38384, 84015, 79908 ####[facility] [place] [address], [facility] MEXICONeutrophils/100 ejotrjgpod58.9 %Siv88-88Uwr [facility] HealthComment on above:Order Comment: << ON ADMISSION If not done in ED>>No: Do not add to previous drawPerformed By: #### 50265, 45825, 04398, 39584, 90585 ####[facility] [place] [address], [facility] S[facility]THER[facility] MEXICOPLAT BIT416 Thou/zc8Sozrcx825-025Anw [facility] HealthComment on above:Order Comment: << ON ADMISSION If not done in ED>>No: Do not add to previous drawPerformed By: #### 73812, 37049, 51730, 18577, 08163 ####[facility] [place] [address], [facility] WBC (Leukocytes)9.8 Thou/dq3Fjcgrc0.0-10.0The [facility]ma HealthComment on above:Order Comment: << ON ADMISSION If not done in ED>>No: Do not add to previous drawPerformed By: #### 26275, 84290, 06285, 93839, 86606 ####[facility] [place] [address], [facility] MAGNESIUM BLOODon 76-37-0819Mxsatynid1.3 mg/dLNormal1.9-2.7The [facility]ma HealthComment on above:Order Comment: << ON ADMISSION If not done in ED>>No: Do not add to previous drawPerformed By: #### 52786, 39545, 95645, 10232, 37805 ####[facility] [place] [address], USATYPE AND SCREENon 09-08-2243GGV INTERPRETATIONBNormalThe Summa HealthComment on above:Performed By: #### 43414, 57212, 67223, 64964, 46935 ####[facility] [place] [address], USAANTIBODY SCREENNegativeNoMemorial Health System Selby General HospitalComment on above:Performed By: #### 60336, 26548, 00755, 98882, 94481 ####[facility] [place] [address], USARH INTERPRETATIONPositivePremier Health [facility] Comment on above:Performed By: #### 85993, 87540, 35105, 00342, 61595 ####[facility] [place] [address], [facility] *MRSA/MSSA CULTUREon 12-17-2016*MRSA/MSSA CULTUREClinical Report: (D) Specimen: NASAL SWAB Collected: 12/17/2016 10:30 Status: Final Last Updated: 12/18/2016 09:17 ISO (Final) No Methicillin Resistant Staphylococcus aureus Isolated ISO (Final) Methicillin Sensitive Staphylococcus aureus IsolatedNoMemorial Health System Selby General HospitalComment on above:Performed By: #### 60179, 18459, 30687, 29014, 77899 ####[facility] [place] [address], USABASIC METABOLIC PANELon 94-37-7882Ftxrlfo5.8 mg/dL Normal8.6-10.3The [facility] HealthComment on above:Order Comment: << ON ADMISSION If not done in ED>>No: Do not add to previous draw Performed By: #### 37145, 55725, 46891, 54377, 46635 ####[facility] [place] [address], CXZAkopqalq376 mmol/LNormal 98-107The [facility] HealthComment on above:Order Comment: << ON ADMISSION If not done in ED>>No: Do not add to previous drawPerformed By: #### 84178, 83573, 45393, 01846, 58391 ####[facility] [place] [address], LMZHI360 mmol/NPkvc59-27Mfl [facility] HealthComment on above:Order Comment: << ON ADMISSION If not done in ED>>No: Do not add to previous drawPerformed By: #### 32670, 37685, 51178, 35024, 05731 ####[facility] [place] [address], USACreatinine1.10 mg/dLNormal0.70-1.30The [facility] HealthComment on above:Order Comment: << ON ADMISSION If not done in ED>>No: Do not add to previous drawPerformed By: #### 25549, 50891, 59831, 22847, 98725 ####[facility] [place] [address], USAeGFR (black)mL/min/{1.73_m2}Normal>60The [facility] HealthComment on above:Order Comment: << ON ADMISSION If not done in ED>>No: Do not add to previous drawPerformed By: #### 71980, 89627, 82246, 91465, 26883 ####[facility] [place] [address], USAeGFR (non-black)mL/min/{1.73_m2}Normal>60The [facility] HealthComment on above:Order Comment: << ON ADMISSION If not done in ED>>No: Do not add to previous drawPerformed By: #### 39422, 71380, 91414, 02127, 22165 ####[facility] [place] [address], USAGlucose mass conc93 mg/nWVzwkyq34-695Zim [facility] HealthComment on above:Order Comment: << ON ADMISSION If not done in ED>>No: Do not add to previous drawPerformed By: #### 74574, 37219, 18063, 44388, 65385 ####[facility] [place] [address], USAPotassium molar conc4.9 mmol/LNormal3.5-5.1 The [facility] HealthComment on above:Order Comment: << ON ADMISSION If not done in ED>>No: Do not add to previous drawPerformed By: #### 50181, 82334, 81497, 14146, 12013 ####[facility] [place] [address], BYPNqyemy751 mmol/BBrlzrh690-237Yts [facility] HealthComment on above:Order Comment: << ON ADMISSION If not done in ED>>No: Do not add to previous drawPerformed By: #### 18605, 83655, 26346, 27259, 35313 ####[facility] [place] [address], USAUrea agzgnijs52 mg/dLHigh7-25The [facility] HealthComment on above:Order Comment: << ON ADMISSION If not done in ED>>No: Do not add to previous drawPerformed By: #### 27643, 26355, 52363, 22656, 24441 ####[facility] [place] [address], [facility] MEXICOCB W/DIFFon 16-02-8405Pbmuixjgz Auto #/vol (Bld)0.8 %Normal0.0-2.0 The [facility] HealthComment on above:Order Comment: << ON ADMISSION If not done in ED>>No: Do not add to previous drawPerformed By: #### 93137, 81548, 51589, 69439, 89242 ####[facility] [place] [address], USAEosinophils/100 leukocytes5.6 %High0.0-5.0The [facility] HealthComment on above:Order Comment: << ON ADMISSION If not done in ED>>No: Do not add to previous drawPerformed By: #### 15178, 99991, 64946, 87065, 51573 ####[facility] [place] [address], [facility] MEXICOErythrocyte distribution width Auto Ratio (RBC)14.7 %Vjcjzt95.5-16.9The [facility] HealthComment on above:Order Comment: << ON ADMISSION If not done in ED>>No: Do not add to previous drawPerformed By: #### 78508, 68157, 11526, 47792, 46572 ####[facility] [place] [address], USAErythrocytes (RBC)4.83 mill/ex9Uzwxza3.30-5.90The [facility] HealthComment on above:Order Comment: << ON ADMISSION If not done in ED>>No: Do not add to previous drawPerformed By: #### 07592, 46220, 33308, 37533, 31463 ####[facility] [place] [address], [facility] MEXICOHematocrit (HCT)49.0 %Dgdrna92.0-55.0The [facility] HealthComment on above:Order Comment: << ON ADMISSION If not done in ED>>No: Do not add to previous drawPerformed By: #### 61056, 19261, 71978, 94575, 23404 ####[facility] [place] [address], [facility] MEXICOHemoglobin mass conc (Bld)15.9 g/tBElyphd19.9-16.3The [facility] Comment on above:Order Comment: << ON ADMISSION If not done in ED>>No: Do not add to previous drawPerformed By: #### 70157, 25209, 97456, 77032, 32362 ####[facility] [place] [address], [facility] Lymphocytes/100 rjklshxpoz38.3 %Jgtrsi41.0-40.0The [facility] HealthComment on above:Order Comment: << ON ADMISSION If not done in ED>>No: Do not add to previous drawPerformed By: #### 60207, 55026, 08404, 18721, 26588 ####[facility] [place] [address], [facility] MCH32.9 chXasb59.0-32.0The [facility] HealthComment on above: Order Comment: << ON ADMISSION If not done in ED>>No: Do not add to previous drawPerformed By: #### 98032, 82562, 49039, 84492, 56377 ####[facility] [place] [address], [facility] MEXICOMCHC mass conc (RBC)32.4 g/rDCnxrbo42.0-36.0The [facility] HealthComment on above:Order Comment: << ON ADMISSION If not done in ED>>No: Do not add to previous drawPerformed By: #### 96166, 41751, 62464, 42117, 17933 ####[facility] [place] [address], LZVULN434.4 fLHigh 80.0-100.0The [facility] HealthComment on above:Order Comment: << ON ADMISSION If not done in ED>>No: Do not add to previous drawPerformed By: #### 45655, 43018, 63969, 95645, 12478 ####[facility] [place] [address], [facility] MEXICOMETHODNormal RBC MorphologyNormal The Summa HealthComment on above:Order Comment: << ON ADMISSION If not done in ED>>No: Do not add to previous drawPerformed By: #### 47094, 73951, 74671, 34972, 34600 ####[facility] [place] [address], FSFIJSPM14.4 %High2-8The [facility] HealthComment on above:Order Comment: << ON ADMISSION If not done in ED>>No: Do not add to previous drawPerformed By: #### 68107, 67516, 18790, 99494, 78753 ####[facility] [place] [address], [facility] MEXICONeutrophils/100 rzdnygxlic48.9 %Aug06-12Mnk [facility] HealthComment on above:Order Comment: << ON ADMISSION If not done in ED>>No: Do not add to previous drawPerformed By: #### 26346, 54011, 77656, 01689, 43778 ####[facility] [place] [address], [facility] OF SOUTHER[facility] NEW MEXICOPLAT IIK057 Thou/kh0Wlmpij599-584Srw [facility] HealthComment on above:Order Comment: << ON ADMISSION If not done in ED>>No: Do not add to previous drawPerformed By: #### 60647, 15925, 35466, 58625, 29552 ####[facility] [place] [address], [facility] WBC (Leukocytes)10.2 Thou/ta3Xwjl5.0-10.0The [facility] Comment on above:Order Comment: << ON ADMISSION If not done in ED>>No: Do not add to previous drawPerformed By: #### 60411, 98037, 65422, 95577, 00539 ####[facility] [place] [address], [facility] Cardiovascular Lab Reporton [id number] Lab ReportUnMartin Memorial Hospital Patient Name: Yobany [facility] MR #: [id number] Physician: Michel Burkett,Department of M.D.Medicine Service Date: 12/16/2016Division of Birthdate: 1955Cardiology Room #: 3AB [id number] CardiovascularNex[facility]er[address] [place], [place] [address]Pwoou Fax Cardiovascular Laboratory ReportCLINICAL PRESENTATION: Mr. Haywood [...] CAD as appropriate.4. Medical therapy for acute systoliccongestive heart failure as appropriate.PROCEDURES: Coronary angiogram, conscious sedation, 28 minut es.INDICATION: Unstable angina, CCS class 4, acute systolic heart failure.DESCRIPTION OF PROCEDURE:The patient was brought to the cardiaccatheterization lab [...] hand injection of contrast.At the end of theprocedure, all catheters wires were removed from thebody. The radial sheath was removed and a TR band was applied to obtainhemostasis. There were no apparent complications.TOTAL CONTRAST: 50 mL.TOTALFLUOROSCOPY TIME: 3 minutes and 4 seconds, 0.9 Gy.TOTAL CONSCIOUS SEDATION TIME: 28 minutes.HEMODYNA MICS: AO: 102/75 (MEP 87).CORONARY ANGIOGRAPHY: Left main coronary artery: The left main is patentand bifurcates into the LAD and the circumflex.Left anterior descending coronary artery: The LAD is alarge vessel andgives rise to 2 large diagonal branches. The proximal through mid LAD hasdiffuse calcified 70% stenosis. The 1st diagonal branch is a largebranching vessel, which is almost in a Ramusposition and this has ostialand proximal 80% stenosis. The 2nd diagonal branch is also large branchingvessel, which originates from the mid LAD and this also has 80% ostialstenosis.The mid to distal LAD is a large caliber vessel and is widely patent.Left circumflex coronary artery: The circumflex is a moderate- sized vesseland gives rise to 4 obtuse marginal branches. The 2nd obtuse marginalbranchhas a proximal 70% stenosis.Right coronary artery: The RCA is a large vessel and is dominant. The midRCA has a heavily calcified 80% stenosis. The distal RCA has 30% stenosis.The PDA and MIRIAM are widely patent.Electronically Signed by:Michel Burkett M.D. 12/19/2016 11:41 A Michel Burkett M.D.Date Dict: 12/16/2016/04:25 P/Michel Burkett M.D.Date Trans: 12/17/2016 01:29 A/[place]_JN:[id number]: Esperanza Eaton M.D. [facility] Centeran...do Not Send [address] [facility] [address]LtkunkBaoPremier Health Miami Valley HospitalMAGNESIUM BLOODon 15-15-0206Nozhynsff0.4 mg/dLNormal1.9-2.7 The [facility] HealthComment on above:Order Comment: << ON ADMISSION If not done in ED>>No: Do not add to previous drawPerformed By: #### 06447, 91628, 05785, 19672, 43206 ####[facility] [place] [address], [facility] MEXICOBASI METABOLIC PANELon 03-05-1976Tawkilc4.5 mg/dLNormal8.6-10.3The [facility] HealthComment on above:Order Comment: << ON ADMISSION If not done in ED>>No: Do not add to previous draw Performed By: #### 65837, 12837, 89261, 67237, 66276 ####[facility] [place] [address], BWSFsmibxwt960 mmol/LNormal 98-107The [facility] HealthComment on above:Order Comment: << ON ADMISSION If not done in ED>>No: Do not add to previous drawPerformed By: #### 57026, 94133, 06988, 66324, 36298 ####[facility] [place] [address], PYMMO311 mmol/ZMfkigp75-68Lcf [facility] HealthComment on above:Order Comment: << ON ADMISSION If not done in ED>>No: Do not add to previous drawPerformed By: #### 31038, 15247, 61595, 58991, 66136 ####[facility] [place] [address], USACreatinine0.98 mg/dLNormal0.70-1.30The [facility] HealthComment on above:Order Comment: << ON ADMISSION If not done in ED>>No: Do not add to previous drawPerformed By: #### 64126, 86067, 11146, 61163, 56797 ####[facility] [place] [address], USAeGFR (black)mL/min/{1.73_m2}Normal>60The [facility] HealthComment on above:Order Comment: << ON ADMISSION If not done in ED>>No: Do not add to previous drawPerformed By: #### 79144, 18060, 64983, 75226, 07263 ####[facility] [place] [address], USAeGFR (non-black)mL/min/{1.73_m2}Normal>60The [facility] HealthComment on above:Order Comment: << ON ADMISSION If not done in ED>>No: Do not add to previous drawPerformed By: #### 82079, 85675, 39445, 92913, 69953 ####[facility] [place] [address], USAGlucose mass hdji860 mg/dIBuvbty28-476Xou [facility] HealthComment on above:Order Comment: << ON ADMISSION If not done in ED>>No: Do not add to previous drawPerformed By: #### 21172, 24928, 85878, 94581, 09808 ####[facility] [place] [address], USAPotassium molar conc4.2 mmol/LNormal3.5-5.1 The [facility] HealthComment on above:Order Comment: << ON ADMISSION If not done in ED>>No: Do not add to previous drawPerformed By: #### 80416, 40138, 46070, 27769, 25112 ####[facility] [place] [address], EFSFfzbuf466 mmol/RPyhqqr596-673Gut [facility] HealthComment on above:Order Comment: << ON ADMISSION If not done in ED>>No: Do not add to previous drawPerformed By: #### 93090, 24105, 47597, 79239, 37770 ####[facility] [place] [address], USAUrea diegrvra08 mg/dLHigh7-25The [facility] HealthComment on above:Order Comment: << ON ADMISSION If not done in ED>>No: Do not add to previous drawPerformed By: #### 43308, 09603, 80008, 97727, 24985 ####[facility] [place] [address], [facility] MEXICOCBC W/DIFFon 55-57-5432Ofhcgzanl Auto #/vol (Bld)0.5 %Normal0.0-2.0 The [facility]ma HealthComment on above:Performed By: #### 75357, 89846, 09907, 56004, 17820 ####[facility] [place] [address], [facility] MEXICOEosinophils/100 leukocytes3.8 %Normal0.0-5.0 The Summa HealthComment on above:Performed By: #### 83224, 01620, 45041, 50690, 82521 ####[address] [place] [address], [facility] MEXICOErythrocyte distribution width Auto Ratio (RBC)14.5 %Emggzn48.5-16.9The [facility] HealthComment on above:Performed By: #### 77763, 92612, 60898, 09319, 26006 ####[facility] [place] [address].[place] [address], [facility] MEXICOErythrocytes (RBC) 4.70 mill/bw8Qmnpip6.30-5.90The [facility] HealthComment on above:Performed By: #### 97089, 68599, 21841, 10168, 22971 ####[address] [address], [facility] MEXICOHematocrit (HCT) 47.4 %Ztebml70.0-55.0The [facility] HealthComment on above: Performed By: #### 22787, 88101, 03762, 93684, 39[address] ####[place] [address], [facility] MEXICOHemoglobin mass conc (Bld) 15.5 g/mPLstzfg62.9-16.3The [facility] HealthComment on above: Performed By: #### 22138, 47076, 26901, 55816, 17575 ####[facility] [place] [address], [facility] MEXICOLymphocytes/100 leukocytes 21.5 %Axmiwz04.0-40.0The [facility] HealthComment on above: Performed By: #### 75715, 31203, 50612, 21167, 07935 ####[facility] [place] [address], OHWUEU43.0 rnPeqd06.0-32.0The [facility]ma HealthComment on above:Performed By: #### 36096, 03069, 35695, 84065, 63953 ####[facility] [place] [address], [facility] MIAMIHC mass conc (RBC)32.6 g/fSYsxbqb53.0-36.0The [facility] HealthComment on above:Performed By: #### 15915, 47956, 93917, 65854, 15344 ####[facility] [place] [address], YJEPCG971.0 iRLqts52.0-100.0The [facility]ma HealthComment on above:Performed By: #### 75041, 49169, 21177, 39515, 60729 ####[facility] [place] [address], [facility] MEXICOMETHODNormal RBC MorphologyNormalThe Summa HealthComment on above:Result Comment: Automated differential performedNormal RBC MorphologyPerformed By: #### 59605, 87362, 07217, 80012, 17404 ####[facility] [place] [address], [place] MONOS16.8 %High2-8The [facility]ma HealthComment on above: Performed By: #### 82829, 14433, 27556, 32281, 43902 ####[facility] [place] [address], USANeutrophils/100 leukocytes 57.4 %Amkfjd71-94Jpv [facility]ma HealthComment on above: Performed By: #### 10551, 24360, 92134, 36004, 75002 ####[facility] [place] [address], USAPLAT SQT441 Thou/my4Vmygje 100-400The [facility] HealthComment on above:Performed By: #### 68153, 30855, 51033, 05731, 37538 ####[facility] [place] [address], USAWBC (Leukocytes)10.7 Thou/zo3Vfzb 4.0-10.0The [facility] HealthComment on above:Performed By: #### 82324, 65709, 95549, 24439, 89350 ####[facility] [place] [address], USAMAGNESIUM BLOODon 12-16-2016 Magnesium2.3 mg/dLNormal1.9-2.7The [facility] HealthComment on above:Order Comment: << ON ADMISSION If not done in ED>>No: Do not add to previous drawPerformed By: #### 46890, 71411, 81042, 04802, 56237 ####[facility] [place] [address], USABASIC METABOLIC PANELon 31-60-5131Nbztfem0.6 mg/dLNormal8.6-10.3The [facility] HealthComment on above:Order Comment: << On admission If not done in ED>>No: Do not add to previous drawPerformed By: #### 81269, 46328, 10690, 67037, 22936 ####[facility] [place] [address], NZJOsmyxqvl87 mmol/ILpoaqr92-232Uhn [facility] HealthComment on above:Order Comment: << On admission If not done in ED>>No: Do not add to previous drawPerformed By: #### 52607, 61448, 64879, 12294, 49068 ####[facility] [place] [address], [place] CO236 mmol/NEogu80-39Zlh [facility]ma HealthComment on above: Order Comment: << On admission If not done in ED>>No: Do not add to previous drawPerformed By: #### 85948, 22727, 61407, 32761, 92104 ####[facility] [place] [address], USACreatinine1.23 mg/dLNormal0.70-1.30The [facility]ma HealthComment on above: Order Comment: << On admission If not done in ED>>No: Do not add to previous drawPerformed By: #### 22604, 39936, 44043, 35237, 11326 ####[facility] [place] [address], USAeGFR (black) mL/min/{1.73_m2}Normal>60The Summa HealthComment on above:Order Comment: << On admission If not done in ED>>No: Do not add to previous drawPerformed By: #### 90762, 44091, 10271, 27464, 23609 ####[facility] [place] [address], USAeGFR (non-black)60 ml/min/1.73sq mAbnormal>60The [facility] Comment on above:Order Comment: << On admission If not done in ED>>No: Do not add to previous drawPerformed By: #### 08324, 19814, 90604, 43275, 38408 ####[facility] [place] [address], [place] Glucose mass conc99 mg/lCMmchgf71-442Ksj [facility] Comment on above:Order Comment: << On admission If not done in ED>>No: Do not add to previous drawPerformed By: #### 68057, 48921, 80658, 39773, 37216 ####[facility] [place] [address], [facility] Potassium molar conc3.7 mmol/LNormal3.5-5.1The [facility] HealthComment on above:Order Comment: << On admission If not done in ED>>No: Do not add to previous drawPerformed By: #### [id number], 28216, 68156, 60885, 29279 ####[facility] [place] [address], [facility] Rgkatw668 mmol/GFrrbkp839-392Wrw [facility] HealthComment on above:Order Comment: << On admission If not done in ED>>No: Do not add to previous drawPerformed By: #### 24483, 20594, 48964, 18962, 96408 ####[facility]Urea vstbpxqy24 mg/dLHigh7-25The [facility] HealthComment on above:Order Comment: << On admission If not done in ED>>No: Do not add to previous draw Performed By: #### 60886, 61225, 15923, 06271, 82196 ####[facility] [place] [address], [facility]OCB W/DIFFon 12-15-2016 Basophils Auto #/vol (Bld)0.2 %Normal0.0-2.0The [facility] HealthComment on above:Order Comment: << ON ADMISSION If not done in ED>>No: Do not add to previous drawPerformed By: #### 08866, 21403, 74664, 75221, 71133 ####[facility] [place] [address], [facility] Eosinophils/100 leukocytes5.6 %High0.0-5.0The [facility] HealthComment on above:Order Comment: << ON ADMISSION If not done in ED>>No: Do not add to previous drawPerformed By: #### 28684, 66358, 32165, 34802, 07766 ####[facility] [place] [address], [facility] Erythrocyte distribution width Auto Ratio (RBC)14.3 %Admzuj75.5-16.9The [facility] HealthComment on above:Order Comment: << ON ADMISSION If not done in ED>>No: Do not add to previous drawPerformed By: #### 28270, 94784, 64700, 38033, 57903 ####[facility] [place] [address], [facility] MEXICOErythrocytes (RBC)4.73 mill/hu2Knsjbo 4.30-5.90The Summa HealthComment on above:Order Comment: << ON ADMISSION If not done in ED>>No: Do not add to previous drawPerformed By: #### 12277, 73408, 56289, 60961, 06688 ####[facility] [place] [address], [facility] MEXICOHematocrit (HCT)47.9 %Normal 39.0-55.0The [facility]ma HealthComment on above:Order Comment: << ON ADMISSION If not done in ED>>No: Do not add to previous drawPerformed By: #### 28205, 66743, 70442, 57699, 54260 ####[facility] [place] [address], [facility] MEXICOHemoglobin mass conc (Bld)15.6 g/aUEsxqpm79.9-16.3The [facility]ma HealthComment on above:Order Comment: << ON ADMISSION If not done in ED>>No: Do not add to previous draw Performed By: #### 68542, 32367, 60818, 19217, 07783 ####[facility] [place] [address], [facility] MEXICOLymphocytes/100 leukocytes 17.7 %Low20.0-40.0The [facility]ma HealthComment on above:Order Comment: << ON ADMISSION If not done in ED>>No: Do not add to previous draw Performed By: #### 72475, 13185, 38786, 39062, 63399 ####[facility] [place] [address], GZFEAU20.9 rgIqow16.0-32.0The [facility] HealthComment on above:Order Comment: << ON ADMISSION If not done in ED>>No: Do not add to previous drawPerformed By: #### 93757, 71665, 42026, 95327, 53324 ####[facility] [place] [address], [facility] MIAMIHC mass conc (RBC)32.5 g/zGVmmrqu63.0-36.0 The [facility] HealthComment on above:Order Comment: << ON ADMISSION If not done in ED>>No: Do not add to previous drawPerformed By: #### 43167, 45933, 66863, 29141, 83946 ####[facility] [place] [address], SWZMYP854.2 vLRfas52.0-100.0The [facility] HealthComment on above:Order Comment: << ON ADMISSION If not done in ED>>No: Do not add to previous drawPerformed By: #### 12567, 25435, 85065, 98575, 90718 ####[facility] [place] [address], [facility] HospitalComment on above:Order Comment: << ON ADMISSION If not done in ED>>No: Do not add to previous drawResult Comment: Automated differential performedNormal RBC MorphologyPerformed By: #### 76582, 59769, 65969, 62365, 66029 ####[facility] [place] [address], ADODTFTN03.1 %High2-8 The [facility]ma HealthComment on above:Order Comment: << ON ADMISSION If not done in ED>>No: Do not add to previous drawPerformed By: #### 34776, 71246, 19873, 69702, 31173 ####[facility] [place] [address], USANeutrophils/100 .4 %Fjskou30-74 The [facility] HealthComment on above:Order Comment: << ON ADMISSION If not done in ED>>No: Do not add to previous drawPerformed By: #### 09925, 27484, 28467, 14914, 14258 ####[facility] [place] [address], USAPLAT VPV105 Thou/wr2Cfihss045-189Gtn [facility] HealthComment on above:Order Comment: << ON ADMISSION If not done in ED>>No: Do not add to previous drawPerformed By: #### 03379, 09773, 25307, 60430, 97546 ####[facility] [place] [address], USAWBC (Leukocytes)12.8 Thou/av7Wpgi6.0-10.0The [facility] HealthComment on above:Order Comment: << ON ADMISSION If not done in ED>>No: Do not add to previous drawPerformed By: #### 78336, 30594, 23529, 65269, 90041 ####[facility] [place] [address], USAMAGNESIUM BLOODon 22-74-6579Plrucrhjl2.5 mg/dLNormal1.9-2.7The [facility] HealthComment on above:Order Comment: << On admission If not done in ED>>No: Do not add to previous draw Performed By: #### 53989, 52777, 35449, 85444, 39670 ####[facility] [place] [address], USABASIC METABOLIC PANELon 14-83-2748Lghaefh6.6 mg/dLNormal8.6-10.3The [facility] Comment on above:Order Comment: << On admission If not done in ED>>No: Do not add to previous drawPerformed By: #### 13584, 46318, 41511, 77250, 31830 ####[facility] [place] [address], [place] Xlcoquqf64 mmol/UWso32-833Wgx [facility] HealthComment on above:Order Comment: << On admission If not done in ED>>No: Do not add to previous drawPerformed By: #### 05416, 97083, 58024, 81183, 02106 ####[facility] [place] [address], DVAUP410 mmol/L Rmpd55-77Hxj [facility] HealthComment on above:Order Comment: << On admission If not done in ED>>No: Do not add to previous drawPerformed By: #### 82490, 05776, 42947, 39029, 23860 ####[facility] [place] [address], USACreatinine1.35 mg/dLHigh0.70-1.30 The [facility] HealthComment on above:Order Comment: << On admission If not done in ED>>No: Do not add to previous drawPerformed By: #### 57035, 00059, 62268, 02086, 76789 ####[facility] [place] [address], USAeGFR (black)mL/min/{1.73_m2}Normal>60The [facility] HealthComment on above:Order Comment: << On admission If not done in ED>>No: Do not add to previous drawPerformed By: #### 95608, 05399, 11449, 88756, 07980 ####[facility] [place] [address], USAeGFR (non-black)54 ml/min/1.73sq mAbnormal>60 The [facility] HealthComment on above:Order Comment: << On admission If not done in ED>>No: Do not add to previous drawPerformed By: #### 26145, 28167, 87061, 29794, 20277 ####[facility] [place] [address], USAGlucose mass conc99 mg/gAJdkiky39-334Nuh [facility] HealthComment on above:Order Comment: << On admission If not done in ED>>No: Do not add to previous drawPerformed By: #### 51680, 21812, 09324, 14154, 08934 ####[facility] [place] [address], USAPotassium molar conc4.0 mmol/LNormal3.5-5.1 The [facility] HealthComment on above:Order Comment: << On admission If not done in ED>>No: Do not add to previous drawPerformed By: #### 62317, 30416, 30534, 87933, 08044 ####[facility] [place] [address], DPYKtvizr074 mmol/SCmblcn893-200Qlx [facility] HealthComment on above:Order Comment: << On admission If not done in ED>>No: Do not add to previous drawPerformed By: #### 93911, 49640, 89551, 02110, 64713 ####[facility] [place] [address], USAUrea vkrhgalv22 mg/dLHigh7-25The [facility] HealthComment on above:Order Comment: << On admission If not done in ED>>No: Do not add to previous drawPerformed By: #### 02977, 90664, 93144, 62858, 32872 ####[facility] [place] [address], [facility] MEXICOCB W/DIFFon 81-58-0638Sewzvgqkr Auto #/vol (Bld)0.4 %Normal0.0-2.0 The [facility] HealthComment on above:Order Comment: << On admission If not done in ED>>No: Do not add to previous drawPerformed By: #### 58071, 99853, 88902, 82782, 01995 ####[facility] [place] [address], [facility] M[facility]ICOEosinophils/100 leukocytes1.9 %Normal0.0-5.0 The [facility] HealthComment on above:Order Comment: << On admission If not done in ED>>No: Do not add to previous drawPerformed By: #### 47166, 17229, 85397, 66937, 76958 ####[facility] [place] [address], [facility] MEXICOErythrocyte distribution width Auto Ratio (RBC)15.0 %Cidsqc73.5-16.9The [facility] HealthComment on above:Order Comment: << On admission If not done in ED>>No: Do not add to previous drawPerformed By: #### 89244, 82691, 69179, 34595, 50786 ####[facility] [place] [address], [facility] M[facility]ICOErythrocytes (RBC)4.72 mill/bg2Iuptmc9.30-5.90The [facility] HealthComment on above:Order Comment: << On admission If not done in ED>>No: Do not add to previous drawPerformed By: #### 41594, 12781, 27126, 64262, 17152 ####[facility] [place] [address], [facility] MEXICOHematocrit (HCT)47.6 %Rmimqv50.0-55.0The [facility] HealthComment on above:Order Comment: << On admission If not done in ED>>No: Do not add to previous drawPerformed By: #### 80219, 75647, 50466, 62024, 07709 ####[facility] [place] [address], [facility] MEXICOHemoglobin mass conc (Bld)15.6 g/oLMqvvxe16.9-16.3The [facility] Comment on above:Order Comment: << On admission If not done in ED>>No: Do not add to previous drawPerformed By: #### 23099, 28643, 05031, 52615, 79108 ####[facility] [place] [address], [facility] Lymphocytes/100 rxkwybogoy23.8 %Low20.0-40.0The [facility] HealthComment on above:Order Comment: << On admission If not done in ED>>No: Do not add to previous drawPerformed By: #### 94757, 11048, 63936, 44977, 83978 ####[facility] [place] [address], [facility] MCH33.1 noMobx87.0-32.0The [facility] HealthComment on above: Order Comment: << On admission If not done in ED>>No: Do not add to previous drawPerformed By: #### 65327, 49522, 98333, 83661, 83519 ####[facility] [place] [address], [facility] MEXICOMCHC mass conc (RBC)32.8 g/zLLvmxfk01.0-36.0The [facility] HealthComment on above:Order Comment: << On admission If not done in ED>>No: Do not add to previous drawPerformed By: #### 94100, 03240, 37353, 16094, 22548 ####[facility] [place] [address], FJMYUY216.9 fLHigh 80.0-100.0The [facility] HealthComment on above:Order Comment: << On admission If not done in ED>>No: Do not add to previous drawPerformed By: #### 81268, 51719, 11610, 61435, 77441 ####[facility] [place] [address], USAMETHODNormalThe Summa HealthComment on above:Order Comment: << On admission If not done in ED>>No: Do not add to previous drawResult Comment: Automated differential performedNormal RBC MorphologyPerformed By: #### 40415, 77856, 78411, 77347, 94473 ####[facility] [place] [address], TSTUEKLD13.9 %High2-8The [facility] HealthComment on above:Order Comment: << On admission If not done in ED>>No: Do not add to previous drawPerformed By: #### 31445, 38355, 36871, 93486, 04365 ####[facility] [place] [address], USANeutrophils/100 .0 %Yfqtmq29-70Jxk [facility] HealthComment on above:Order Comment: << On admission If not done in ED>>No: Do not add to previous drawPerformed By: #### 26385, 53565, 41880, 63820, 83598 ####[facility] [place] [address], USAPLAT GXC562 Thou/da2Ydgbeu738-430Oqi [facility] HealthComment on above: Order Comment: << On admission If not done in ED>>No: Do not add to previous drawPerformed By: #### 75248, 39178, 09221, 34986, 19235 ####[facility] [place] [address], [facility] MEXICOWBC (Leukocytes) 12.1 Thou/sw3Jlbb3.0-10.0The [facility] HealthComment on above:Order Comment: << On admission If not done in ED>>No: Do not add to previous drawPerformed By: #### 26826, 41496, 25961, 68006, 58534 ####[facility] [place] [address], USAMAGNESIUM BLOOD on 41-57-6088Eocghyxxn1.2 mg/dLNormal1.9-2.7The [facility] HealthComment on above:Order Comment: << On admission If not done in ED>>No: Do not add to previous drawPerformed By: #### 26619, 86643, 38010, 77679, 38985 ####[facility] [place] [address], [place] BASIC METABOLIC PANELon 51-89-7694Cuchlkt1.4 mg/dLNormal8.6-10.3The [facility] HealthComment on above:Order Comment: << On admission If not done in ED>>No: Do not add to previous drawPerformed By: #### 61336, 54194, 40366, 65876, 20519 ####[facility] [place] [address], ERQOvnouysk86 mmol/COuj34-832Oeo [facility] HealthComment on above:Order Comment: << On admission If not done in ED>>No: Do not add to previous drawPerformed By: #### 61758, 81179, 77262, 42057, 48489 ####[facility] [place] [address], IBGQS806 mmol/FPsxn82-18Pit [facility] HealthComment on above:Order Comment: << On admission If not done in ED>>No: Do not add to previous drawPerformed By: #### 81024, 52493, 88396, 88108, 85269 ####[facility] [place] [address], USACreatinine1.31 mg/dLHigh0.70-1.30The [facility] HealthComment on above:Order Comment: << On admission If not done in ED>>No: Do not add to previous draw Performed By: #### 95215, 19221, 36187, 76337, 98919 ####[facility] [place] [address], USAeGFR (black) mL/min/{1.73_m2}Normal>60The [facility] HealthComment on above:Order Comment: << On admission If not done in ED>>No: Do not add to previous drawPerformed By: #### 01804, 66307, 46393, 28535, 85418 ####[facility] [place] [address], USAeGFR (non-black)56 ml/min/1.73sq mAbnormal>60The [facility] Comment on above:Order Comment: << On admission If not done in ED>>No: Do not add to previous drawPerformed By: #### 56622, 09635, 52149, 50787, 41365 ####[facility] [place] [address], [place] Glucose mass yssh169 mg/lBSijp20-536Lye [facility] Comment on above:Order Comment: << On admission If not done in ED>>No: Do not add to previous drawPerformed By: #### 80586, 05750, 70134, 79246, 35338 ####[facility] [place] [address], [place] Potassium molar conc3.9 mmol/LNormal3.5-5.1The [facility] HealthComment on above:Order Comment: << On admission If not done in ED>>No: Do not add to previous drawPerformed By: #### 00773, 58499, 88674, 62544, 42338 ####[facility] [place] [address], [place] Bqegax148 mmol/VDlakcp228-391Vfx [facility] HealthComment on above:Order Comment: << On admission If not done in ED>>No: Do not add to previous drawPerformed By: #### 82201, 70150, 79382, 27255, 24637 ####[facility] [place] [address], USAUrea sqidomkn65 mg/dLHigh7-25The [facility] HealthComment on above:Order Comment: << On admission If not done in ED>>No: Do not add to previous draw Performed By: #### 40336, 56085, 51270, 50178, 93999 ####[facility] [place] [address], PQYDsqxyirt85 mmol/GOmu65-295 The [facility] HealthComment on above:Order Comment: << On admission If not done in ED>>No: Do not add to previous drawPerformed By: #### 71434, 55305, 38528, 73324, 77668 ####[facility] [place] [address], MELQS881 mmol/WJufw72-46Cxl [facility] HealthComment on above:Order Comment: << On admission If not done in ED>>No: Do not add to previous drawPerformed By: #### 34398, 97570, 73299, 47095, 38649 ####[facility] [place] [address], USACreatinine0.95 mg/dLNormal0.70-1.30The [facility] HealthComment on above:Order Comment: << On admission If not done in ED>>No: Do not add to previous drawPerformed By: #### 22723, 30054, 85824, 66706, 86420 ####[facility] [place] [address], [facility] eGFR (non-black)mL/min/{1.73_m2}Normal>60The [facility] Comment on above:Order Comment: << On admission If not done in ED>>No: Do not add to previous drawPerformed By: #### 42597, 30054, 09800, 91798, 89156 ####[facility] [place] [address], [facility] Glucose mass pisa994 mg/jISzfy91-894Sxb [facility] Comment on above:Order Comment: << On admission If not done in ED>>No: Do not add to previous drawPerformed By: #### 33209, 31379, 04811, 61775, 22932 ####[facility] [place] [address], [facility] Potassium molar conc3.6 mmol/LNormal3.5-5.1The [facility] HealthComment on above:Order Comment: << On admission If not done in ED>>No: Do not add to previous drawPerformed By: #### 39287, 52374, 64450, 84606, 20103 ####[facility] [place] [address], [facility] Ehtxnu649 mmol/CCewapx542-539Ehp [facility] HealthComment on above:Order Comment: << On admission If not done in ED>>No: Do not add to previous drawPerformed By: #### 56391, 12452, 59363, 77008, 18595 ####[facility] [place] [address], [facility] MEXICOUrea yatxlkbb07 mg/dLNormal7-25The [facility] HealthComment on above:Order Comment: << On admission If not done in ED>>No: Do not add to previous draw Performed By: #### 70897, 19301, 03581, 07578, 23423 ####[facility] [place] [address], [facility] MEXICOCBC W/DIFFon 12-13-2016 Basophils Auto #/vol (Bld)0.5 %Normal0.0-2.0The [facility] HealthComment on above:Order Comment: No: Do not add to previous drawPerformed By: #### 70579 ####[facility] [place] [address], [facility] MEXICOEosinophils/100 leukocytes1.5 %Normal0.0-5.0The [facility] HealthComment on above:Order Comment: No: Do not add to previous drawPerformed By: #### 02599 ####[address] [place] [address], [facility] MEXICOErythrocyte distribution width Auto Ratio (RBC)14.6 %Pylohs09.5-16.9The [facility] HealthComment on above:Order Comment: No: Do not add to previous drawPerformed By: #### 84043 ####[facility] [place] [address].[place] [address], [facility] Erythrocytes (RBC)4.51 mill/hz7Bitouz6.30-5.90The [facility] HealthComment on above:Order Comment: No: Do not add to previous drawPerformed By: #### 08961 ####[facility] [place] [address].[place] [address], [facility] MEXICOHematocrit (HCT)45.3 %Dihvrq61.0-55.0The [facility] HealthComment on above:Order Comment: No: Do not add to previous draw Performed By: #### 59675 ####[address] [place] [address], [facility] MEXICOHemoglobin mass conc (Bld)15.0 g/jWCyjnjr02.9-16.3The [facility] HealthComment on above:Order Comment: No: Do not add to previous drawPerformed By: #### 75614 ####[facility] [place] [address], USALymphocytes/100 hshdjmigas64.3 % Low20.0-40.0The [facility] HealthComment on above:Order Comment: No: Do not add to previous drawPerformed By: #### 21516 ####[facility] [place] [address], WOPXIR26.3 pgHigh 24.0-32.0The [facility] HealthComment on above:Order Comment: No: Do not add to previous drawPerformed By: #### 59032 ####[facility] [place] [address], [facility] – MIAMIHC mass conc (RBC)33.1 g/eUJyqlhp32.0-36.0The [facility] HealthComment on above:Order Comment: No: Do not add to previous drawPerformed By: #### 86042 ####[facility] [place] [address], MHMBZW533.6 fLHigh 80.0-100.0The [facility] HealthComment on above:Order Comment: No: Do not add to previous drawPerformed By: #### 90763 ####[facility] [place] [address].[place] [address], [facility] SYSTEMODNormalThLake County Memorial Hospital - WestComment on above:Order Comment: No: Do not add to previous drawResult Comment: Automated differential performedNormal RBC MorphologyPerformed By: #### 97971 ####[facility] [place] [address], QSGSWIBW25.8 %High2-8The [facility] HealthComment on above:Order Comment: No: Do not add to previous draw Performed By: #### 62130 ####[facility] [id number] [place] [address], USANeutrophils/100 vgortqitxk46.9 %Vszvap19-59Ukc [facility] HealthComment on above:Order Comment: No: Do not add to previous drawPerformed By: #### 92850 ####[facility] [place] [address], USAPLAT LMM065 Thou/ou1Kubzyc244-165 The [facility] HealthComment on above:Order Comment: No: Do not add to previous drawPerformed By: #### 07904 ####[facility] [place] [address], [facility] MEXICOWBC (Leukocytes)11.3 Thou/ma0Ypzd6.0-10.0The [facility] HealthComment on above: Order Comment: No: Do not add to previous drawPerformed By: #### 83727 ####[facility] [place] [address], [place] COOXIMETRYon 80-78-5018PKTD0 %NormalThe [facility] Comment on above:Performed By: #### 13740, 73946, 64176, 06347, 67569 ####[facility] [place] [address], [place] METHB0 %NormalThe [facility]ma HealthComment on above:Performed By: #### 57348, 58367, 26608, 21282, 32905 ####[facility] [place] [address], [facility] MEXICOO2 .8 %Fnxnjf68.0-80.0 The [facility] HealthComment on above:Performed By: #### 17819, 62352, 70028, 49680, 12036 ####[facility] [place] [address], FDSEUP46.7 g/qPIaabwk61.9-16.3The [facility] HealthComment on above:Performed By: #### 10577, 14217, 70080, 69705, 30149 ####[facility] [place] [address], USACardiovascular Lab Reporton [id number] Lab Report [facility]: [id number] Physician: Francisco Schaefer M.D.Medicine Service Date: 12/12/2016Division of Birthdate: 1955Cardiology Room #: 3AB [id number] [facility]Services[facility] [place], [place] [address]Amxjx Fax Cardiovascular Laboratory ReportINDICATION:Torsten Haywood is a 60-year-old man, who was admitted with advancedsystolic heart failure. He wasreferred for right heart cardiaccatheterization.PROCEDURES:1. Access into right internal jugular vein under ultrasound guidance.2. Right heart catheterization.3. Placement of a CUTTER BRAKE LINING [place]-Oscar catheter.METHOD:Procedure was explained to the patient with risks and benefits. He signedinformed consent. He was brought to molder labels in a fasting state. [facility] neck area was prepped and draped in usual fashion. Access into theright internal jugular vein was obtained using ultrasound guidance andmicropuncture technique, a 6-Senegalese x 11 cm sheath was placed. A 6- FrenchBerman catheter was used for right heart catheterization with measurementof pressures and calculation of cardiac output using the estimated Fickmethod. Correa catheter was removed. The access sheath was upsized to a9- Senegalese x 11 cm introducer sheath, which was [...] pulmonary hypertension.3. Reduced cardiac output and cardiac index.RECOMME NDATIONS:Diuresis and afterload reduction.Electronically Signed by:Francisco Tena M.D. 12/28/2016 08:05 A Francisco Tena M.D.Date Dict: 12/12/2016/04:52 P/Francisco Tena M.D.Date Trans: 12/13/2016 06:58 A/[place]_JN:[id number]: Esperanza Eaton M.D. E R Physican...do Not Send [address] [facility] [address]CwglrfWqfMemorial Health System Selby General HospitalLIPID PROFILEon [id number] mg/dLNormal 120-200The [facility]ma HealthComment on above:Result Comment: CHOLESTEROL REFERENCE RANGE:20 YEARS AND OLDER CARDIOVASCULAR RISKLess than 200 mg/dl Low Fnet950 to 239 mg/dl Borderline Jsxr457 mg/dl and greater High Risk Performed By: #### [id number], 14746, 01165, 91054, 21309 ####[facility] [place] [address], USACholesterol to HDL Ratio 5.1 {ratio}High.0-4.5The Summa HealthComment on above: Performed By: #### 58955, 25300, 51449, 92505, 31885 ####[facility] [place] [address], USAHDL Jozrxsmeszm80 mg/dL Vuddhi90-28Roh Summa HealthComment on above:Result Comment: Slight variation in normal range could be due to gender and/or age.HDL CHOLESTEROL REFERENCE RANGE:20 years and older Cardiovascular Risk> or =60 mg/dL Krficnkpg44 TO 59 mg/dL Low Risk<40 mg/dL High RiskPerformed By: #### 89948, 27580, 00099, 90973, 30882 ####[facility] [place] [address], [facility] SOUTHER[facility] MEXICOLDL Daypqrdbocc260 mg/dLNormal0-130The [facility]ma HealthComment on above:Result Comment: LDL IS A CALCULATIONLDL IS ONLY VALID IF THE TRIG IS LESS THAN 400.Performed By: #### 91495, 38047, 42127, 11261, 12634 ####[facility] [place] [address], [facility] MEXICONON-HDL WITOBDYJMWA493 mg/dLNormalThe Summa HealthComment on above:Performed By: #### 84768, 64696, 29764, 62979, 36150 ####[facility] [place] [address], [facility] Ypnidxxfvotj00 mg/gLPwevsv24-935Mzr [facility] HealthComment on above:Result Comment: TRIGLYCERIDE REFERENCE RANGE:20 YEARS AND OLDER CARDIOVASCULAR RISKLESS THAN 150 mg/dl LOW IICP815 TO 199 mg/dl BORDERLINE VZHJ289 mg/dl AND GREATER HIGH RISKPerformed By: #### 36813, 89557, 28560, 87391, 40595 ####[facility] [place] [address], [facility] S[facility]THER[facility] MEXICOVLDL CHOL18 mg/dLNormal0-40The [facility] Comment on above:Performed By: #### 71844, 73935, 78272, 44160, 10529 ####[facility] [place] [address], [facility] MAGNESIUM BLOODon 99-43-5684Uwttfdnot1.0 mg/dLNormal1.9-2.7The [facility]ma HealthComment on above:Order Comment: << On admission If not done in ED>>No: Do not add to previous drawPerformed By: #### 45378, 19676, 36476, 49918, 65723 ####[facility] [place] [address], [facility]THER[facility] MEXICOCBC W/DIFFon 10-11-0055Ktmwaavne Auto #/vol (Bld)0.0 %Normal0.0-2.0 The Summa HealthComment on above:Order Comment: If not done in EDNo: Do not add to previous drawPerformed By: #### 16980 ####[facility] [place] [address], [facility] MEXICOEosinophils/100 leukocytes1.0 %Normal0.0-5.0The [facility] HealthComment on above:Order Comment: If not done in EDNo: Do not add to previous drawPerformed By: #### 80916 ####[facility] [place] [address], [facility] MEXICOErythrocyte distribution width Auto Ratio (RBC)14.2 %Normal 11.5-16.9The [facility]ma HealthComment on above:Order Comment: If not done in EDNo: Do not add to previous drawPerformed By: #### 02360 ####[facility] [place] [address], [facility] Erythrocytes (RBC)4.17 mill/za8Aaw1.30-5.90The [facility]ma HealthComment on above:Order Comment: If not done in EDNo: Do not add to previous drawPerformed By: #### 76752 ####[facility] [place] [address], [facility] MEXICOHematocrit (HCT)41.7 %Normal 39.0-55.0The [facility]ma HealthComment on above:Order Comment: If not done in EDNo: Do not add to previous drawPerformed By: #### 75022 ####[facility] [place] [address], [facility] Hemoglobin mass conc (Bld)13.9 g/tFBzslvk97.9-16.3The [facility] HealthComment on above:Order Comment: If not done in EDNo: Do not add to previous drawPerformed By: #### 42252 ####[facility] [place] [address], [facility] MEXICOLymphocytes/100 etubjfjwrz50.0 % Low20.0-40.0The [facility] HealthComment on above:Order Comment: If not done in EDNo: Do not add to previous drawPerformed By: #### 09918 ####[facility] [place] [address], FKECSQ43.2 kgCsbj35.0-32.0The [facility] HealthComment on above:Order Comment: If not done in EDNo: Do not add to previous draw Performed By: #### 76075 ####[facility] [place] [address], [facility] – MIAMIHC mass conc (RBC)33.3 g/vHRqandg00.0-36.0The [facility] HealthComment on above:Order Comment: If not done in EDNo: Do not add to previous drawPerformed By: #### 45327 ####[facility] [place] [address], JHEWMQ404.0 fLNormal 80.0-100.0The [facility] HealthComment on above:Order Comment: If not done in EDNo: Do not add to previous drawPerformed By: #### 74018 ####[facility] [place] [address], [facility] METHODManual blood smear examination performedNoMemorial Health System Selby General HospitalComment on above:Order Comment: If not done in EDNo: Do not add to previous drawPerformed By: #### 91045 ####[facility] [place] [address], JWAWETGL61.0 %High2-8The [facility] HealthComment on above:Order Comment: If not done in EDNo: Do not add to previous drawPerformed By: #### 91050 ####[facility] [place] [address], USAOTHER 1NORMAL RED CELL MORPHOLOGY SEENNormalThe Summa HealthComment on above: Order Comment: If not done in EDNo: Do not add to previous drawPerformed By: #### 13024 ####[facility] [place] [address], USAPLAT VXA217 Thou/zb8Hrryte909-130Sga [facility] HealthComment on above:Order Comment: If not done in EDNo: Do not add to previous drawPerformed By: #### 19879 ####[facility] [place] [address], SPHVQLA74.0 %Jauxni13-04Nis [facility] HealthComment on above:Order Comment: If not done in EDNo: Do not add to previous drawPerformed By: #### 68294 ####[facility] [place] [address], [facility] MEXICOWBC (Leukocytes) 11.0 Thou/qt5Kqad0.0-10.0The [facility] HealthComment on above:Order Comment: If not done in EDNo: Do not add to previous drawPerformed By: #### 64284 ####[facility] [place] [address], [facility] S[facility]THER[facility] MEXICOCOMP METABOLIC PANELon 44-01-8770Oeojypa aminotransferase (ALT)33 U/LNormal7-52The [facility] HealthComment on above:Order Comment: << On admission If not done in ED>>No: Do not add to previous draw Performed By: #### 32215, 23771, 90835, 23649, 21231 ####[facility] [place] [address], USAAlbumin3.7 g/dLNormal 3.5-5.7The [facility] HealthComment on above:Order Comment: << On admission If not done in ED>>No: Do not add to previous drawPerformed By: #### 90023, 61198, 17239, 16922, 35816 ####[facility] [place] [address], USAALKALINE NIGVGP29 IU/JWevtis82-370 The [facility] HealthComment on above:Order Comment: << On admission If not done in ED>>No: Do not add to previous drawPerformed By: #### 55869, 68545, 41908, 75939, 32385 ####[facility] [place] [address], USAAspartate aminotransferase (AST)30 U/LNormal 13-39The [facility] HealthComment on above:Order Comment: << On admission If not done in ED>>No: Do not add to previous drawPerformed By: #### 68493, 89159, 34960, 21954, 36657 ####[facility] [place] [address], USABilirubin (total)1.4 mg/dLHigh 0.3-1.0The [facility] HealthComment on above:Order Comment: << On admission If not done in ED>>No: Do not add to previous drawPerformed By: #### 09054, 82367, 95355, 39695, 72740 ####[facility] [place] [address], USACalcium8.9 mg/dLNormal8.6-10.3The [facility] HealthComment on above:Order Comment: << On admission If not done in ED>>No: Do not add to previous drawPerformed By: #### 17933, 31089, 55386, 81390, 65190 ####[facility] [place] [address], BWLTkcqonzr099 mmol/AFdbwub81-552Das [facility]ma HealthComment on above:Order Comment: << On admission If not done in ED>>No: Do not add to previous drawPerformed By: #### 11178, 18245, 50581, 50089, 59233 ####[facility] [place] [address], GFFZM120 mmol/VVgbyop59-08Egz [facility] HealthComment on above:Order Comment: << On admission If not done in ED>>No: Do not add to previous drawPerformed By: #### 21851, 98597, 33857, 25945, 48375 ####[facility] [place] [address], [facility] Creatinine0.87 mg/dLNormal0.70-1.30The [facility] Comment on above:Order Comment: << On admission If not done in ED>>No: Do not add to previous drawPerformed By: #### 34880, 81309, 07426, 57964, 67087 ####[facility] [place] [address], [facility] eGFR (black)mL/min/{1.73_m2}Normal>60The [facility] Comment on above:Order Comment: << On admission If not done in ED>>No: Do not add to previous drawPerformed By: #### 41876, 65900, 73334, 95271, 17076 ####[facility] [place] [address], [facility] eGFR (non-black)mL/min/{1.73_m2}Normal>60The [facility] Comment on above:Order Comment: << On admission If not done in ED>>No: Do not add to previous drawPerformed By: #### 95553, 80123, 97138, 92194, 75793 ####[facility] [place] [address], [facility] Glucose mass yhqd760 mg/uNIncada92-361Abt [facility] Comment on above:Order Comment: << On admission If not done in ED>>No: Do not add to previous drawPerformed By: #### 03414, 88211, 23851, 35903, 00828 ####[facility] [place] [address], [facility] Potassium molar conc4.1 mmol/LNormal3.5-5.1The [facility] HealthComment on above:Order Comment: << On admission If not done in ED>>No: Do not add to previous drawPerformed By: #### 50085, 62286, 13906, 07778, 35014 ####[facility] [place] [address], [facility] Protein6.3 g/dLNormal6.0-8.3The [facility] HealthComment on above:Order Comment: << On admission If not done in ED>>No: Do not add to previous drawPerformed By: #### 85170, 58250, 12515, 37004, 39901 ####[facility] [place] [address], FYODcpies050 mmol/GNajjan400-474Uxw [facility] HealthComment on above:Order Comment: << On admission If not done in ED>>No: Do not add to previous draw Performed By: #### 53952, 42832, 91970, 86625, 03942 ####[facility] [place] [address], USAUrea vzitwyxl53 mg/dL Normal7-25The [facility] HealthComment on above:Order Comment: << On admission If not done in ED>>No: Do not add to previous drawPerformed By: #### 66632, 21271, 33592, 26222, 48164 ####[facility] [place] [address], USACOOXIMETRYon 72-97-7454NFNX7 % NormalThe Summa HealthComment on above:Order Comment: RESULTS CHECKED AND CALLED. ACCURATELY READ BACK BY JOSUÉ Xiaoformed By: #### 61317 ####[facility] [place] [address], USAMETHB0 %NormalThe Summa HealthComment on above: Order Comment: RESULTS CHECKED AND CALLED. ACCURATELY READ BACK BY JOSUÉ YUSUF Performed By: #### 69328 ####[facility] [place] [address], USAO2 finazkyglg80.2 %Low60.0-80.0The [facility] HealthComment on above:Order Comment: RESULTS CHECKED AND CALLED. ACCURATELY READ BACK BY JOSUÉ Xiaoformed By: #### 31262 ####[facility] [place] [address], OHGDEO03.2 g/dLLow 13.9-16.3The [facility] HealthComment on above:Order Comment: RESULTS CHECKED AND CALLED. ACCURATELY READ BACK BY JOSUÉ Xiaoformed By: #### 00030 ####[facility] [place] [address], USAFREE T4on 44-03-6616Hiskjygxw (T4) free1.14 ng/dLNormal0.71-1.85The [facility] HealthComment on above:Order Comment: If not done in EDNo: Do not add to previous drawPerformed By: #### 67217, 19833, 83822, 07783, 44306 ####[facility] [place] [address], USAHEMOGLOBIN A1Con 27-86-1707Fxctuvv mass bfqh674 mg/yGZmcyqr68-804 The [facility] HealthComment on above:Order Comment: If not done in EDNo: Do not add to previous drawPerformed By: #### 11749 ####[facility] [place] [address], [facility] MEXICOHemoglobin A1c/Hemoglobin.total mass fraction (Bld)5.7 %Normal4.0-6.0The [facility] HealthComment on above:Order Comment: If not done in EDNo: Do not add to previous drawPerformed By: #### 25671 ####[facility] [place] [address], USAMAGNESIUM BLOODon 12-12-2016 Magnesium1.9 mg/dLNormal1.9-2.7The [facility] HealthComment on above:Order Comment: << ON ADMISSION If not done in ED>>No: Do not add to previous drawPerformed By: #### 92145, 61613, 35026, 99695, 68159 ####[facility] [place] [address], USAPORTABLE CHEST 1 VIEWon 54-33-4645CLELSRTA CHEST 1 VIEWUnParma Community General HospitalDepartment of Ajpqpcpmf[address] [place], [place] [address] Patien t Name: TORSTEN HAYWOOD : 1955Sex: MAge: Race: WhiteMRN: [id number]. Location: [id number]: IVisit #: [id number] Date: 12/12/2016 6:15:00 AMCompleted Date: 12/12/2016 06:47 AMRequesting Provider: EMERSON SETHI Attending Provider: BLAKE LUCAS AM Report Copy To: Signs & Symptoms: Chest PainHistory: Patient history not availableComments: R/O CHFExam: PORTABLECHEST 1 VIEWAccession #: [id number] ======PORTABLE CHEST 1 VIEW 12/12/2016 6:47 AM EDT [...] atelectasis Electronically signed by:Jose Medina. Transcribed by: [id number], User Resident: Electronically Signed by: JOSE MEDINA @ 12/12/2016 12:35 PMNormalThe Summa HealthComment on above:Order Comment: R/O CHFTROPONIN-Ion 73-27-3711Xyaapfxr I.cardiac mass conc0.08 ng/mLHigh0.00-0.04The [facility] HealthComment on above:Result Comment: REFERENCE RANGES: 0.00 - 0.04 ng/ml NORMAL 0.05 - 0.50 ng/ml INDETERMINATE > 0.50 ng/ml CONSISTENT WITH AN M.I. Performed By: #### 93991, 02612, 85156, 03198, 15141 ####[facility] [place] [address], [facility] MEXICOTSHon 93-20-6081Prteqhb stimulating hormone (TSH)2.59 MICRO-IU/MLNormal0.34-5.60The [facility] HealthComment on above:Order Comment: If not done in EDNo: Do not add to previous drawPerformed By: #### 53371, 07572, 66752, 18139, 86618 ####[facility] [place] [address], [facility] Vital Signs Date TimeVital SignValuePerforming XmzdnuigbQtvihmcs79-71-6428 14:58-0400Body hrmywz[address] [place], [place] 1819509-12-2025 14:58-0400Body mass index (BMI) [Ratio]32.45 kg/m2Pfo [address] [place], [place] 1819509-12-2025 14:58-0400Body vdaayfjkgbo67.81 [degF]Pfo [address] [place], [place] 1819509-12-2025 14:58-0400Body zgtxyt900.[address] [place], [place] 1819509-12-2025 14:58-0400Diastolic blood dhqjoalt59 mm[Hg]Pfo [address] [place], [place] 1819509-12-2025 14:58-0400Heart rate59 /minPfo [address] [place], [place] 1819509-12-2025 14:58-0400Respiratory rate16 /minPfo [address] [place], [place] 1819509-12-2025 14:58-8312BqA8% (BldA) [Mass fraction]96 %[address]09-12-2025 14:58-0400Systolic blood oopseijl24 mm[Hg]o [address] [place], [place] 1819509-11-2025 11:24-0400Body supfiw337 Abel Prado MD Work Phone: [facility]09-11-2025 11:24-0400Body mass index (BMI) [Ratio]32.07 kg/c5NhnvzWallace Prado MD Work Phone: [facility]09-11-2025 11:24-0400Body aaiaoxdlukq19.4 [degF]Wallace Prado MD Work Phone: [facility]09-11-2025 11:24-0400Body mqkqte936.41 kgWallace Prado MD Work Phone: [facility]09-11-2025 11:24-0400Diastolic blood oelrjrcb41 mm[Hg]Wallace Prado MD Work Phone: [facility]09-11-2025 11:24-0400Heart rate 95 /minWallace Prado MD Work Phone: [facility]09-11-2025 11:24-0400 Respiratory rate17 /minWallace Prado MD Work Phone: [facility]09-11-2025 11:24-9737ApZ6% (BldA) [Mass fraction]95 %Wallace Prado MD Work Phone: [facility]09-11-2025 11:24-0400Systolic blood xurwhlec955 mm[Hg]Wallace Prado MD Work Phone: [facility]08-29-2025 14:25-0400Body xgujlb[address] [place], [place] 1819508-29-2025 14:25-0400Body mass index (BMI) [Ratio]32.32 kg/m2Pfo [address] [place], [place] 1819508-29-2025 14:25-0400Body zltuvfkxxto96 [degF]Pfo [address] [place], [place] 1819508-29-2025 14:25-0400Body weight 108.[address] [place], [place] 1819508-29-2025 14:25-0400Diastolic blood wzbvheph91 mm[Hg]Pfo [address] [place], [place] 1819508-29-2025 14:25-0400Heart rate94 /minPfo [address] [place], [place] 1819508-29-2025 14:25-0400Respiratory rate16 /minPfo [address] [place], [place] 1819508-29-2025 14:25-0778RbM8% (BldA) [Mass fraction]96 %o [address] [place], [place] 1819508-29-2025 14:25-0400Systolic blood okoklxuj077 mm[Hg] Pfo [address] [place], [place] 1819508-28-2025 08:25-0400Body aduyvd242 cmPfo [address] [place], [place] 4680308-28-2025 08:25-0400Body mass index (BMI) [Ratio]32.1 kg/m2Pfo [address] [place], [place] 4037008-28-2025 08:25-0400Body hfmunafhhvf90.59 [degF]Pfo [address] [place], [place] 4037008-28-2025 08:25-0400Body opnfzs471.[address] [place], [place] 4680308-28-2025 08:25-0400Diastolic blood icvvcvve36 mm[Hg]Pfo 7 [facility]08-28-2025 08:25-0400Heart aejb588 /minPfo [address] [place], [place] 4680308-28-2025 08:25-0400Respiratory rate16 /minPfo [address] [place], [place] 4680308-28-2025 08:25-6876FeK3% (BldA) [Mass fraction]96 %Pfo [address] [place], [place] 4680308-28-2025 08:25-0400Systolic blood ovzozoaj774 mm[Hg]Pfo [address] [place], [place] 4680308-15-2025 13:55-0400Body zixpze226 [address] 11-11-2024 13:55-0400Body mass index (BMI) [Ratio]32.13 kg/m[address]08-15-2025 13:55-0400Body ajnvwftqbin84.3 [degF]Pfo [address] [place], [place] 1819508-15-2025 13:55-0400Body wddzus968.[address] [place], [place] 1819508-15-2025 13:55-0400Diastolic blood zoijnokx89 mm[Hg]Pfo [address] [place], [place] 1819508-15-2025 13:55-0400Heart rate93 /min[address] 11-11-2024 13:55-0400Respiratory rate22 /minPfo [address] [place] [address] 11-11-2024 13:55-7738UeT1% (BldA) [Mass fraction]95 %Pf[address]08-15-2025 13:55-0400Systolic blood zdrniyjj771 mm[Hg]Pfo [address] [place], [place] 1819508-14-2025 09:51-0400Body gsevij[address] 11-10-2024 09:51-0400Body mass index (BMI) [Ratio]32.13 kg/m[address]08-14-2025 09:51-0400Body zvrxwflzexf51.81 [degF]Pfo [address] [place], [place] 4680308-14-2025 09:51-0400Body xqluox428.[address] [place], [place] 4680308-14-2025 09:51-0400Diastolic blood givislrn88 mm[Hg]Pfo [address] [place], [place] 4680308-14-2025 09:51-0400Heart tiuz960 /minPfo [address] [place] [address] 11-10-2024 09:51-0400Respiratory rate17 /minPfo [address] [place] [address] 11-10-2024 09:51-7915QqQ4% (BldA) [Mass fraction]93 %Pfo [address] [place], [place] 4680308-14-2025 09:51-0400Systolic blood bzhikzyd460 mm[Hg]Pfo [address] [place], [place] 4680308-08-2025 08:47-0400Body Abel Prado MD Work Phone: [facility]08-08-2025 08:47-0400Body mass index (BMI) [Ratio]31.91 kg/x8IqbgyWallace Prado MD Work Phone: [facility]08-08-2025 08:47-0400Body ongyexjdgay80.39 [degF]Wallace Prado MD Work Phone: [facility]08-08-2025 08:47-0400Body .87 kgWallace Prado MD Work Phone: [facility]08-08-2025 08:47-0400Diastolic blood mgohkolr15 mm[Hg]Wallace Prado MD Work Phone: [facility]08-08-2025 08:47-0400Heart rate 95 /Lakeshia Prado MD Work Phone: [facility]08-08-2025 08:47-0400 Respiratory rate16 /Lakeshia Prado MD Work Phone: [facility]08-08-2025 08:47-0691NqP0% (BldA) [Mass fraction]94 %Wallace Prado MD Work Phone: [facility]08-08-2025 08:47-0400Systolic blood uxorujeq887 mm[Hg]Wallace Prado MD Work Phone: [facility]08-01-2025 11:53-0400Body axszyo265 [facility] [address] [place], [place] 1819508-01-2025 11:53-0400Body mass index (BMI) [Ratio]32.02 kg/m2Pfo [address] [place], [place] 1819508-01-2025 11:53-0400Body atoyywsptcg48.2 [degF]Pfo [address] [place], [place] 1819508-01-2025 11:53-0400Body fsoaeo519.[address] [place], [place] 1819508-01-2025 11:53-0400Diastolic blood qtuwagzl00 mm[Hg]Pfo [address] [place], [place] 1819508-01-2025 11:53-0400Heart rate78 /minPfo [address] [place], [place] 1819508-01-2025 11:53-0400Respiratory rate16 /minPfo [address] [place], [place] 1819508-01-2025 11:53-1260PdF6% (BldA) [Mass fraction]92 %Pfo [address] [place], [place] 1819508-01-2025 11:53-0400Systolic blood eabkgmna505 mm[Hg] Pfo [address] [place], [place] 1819507-31-2025 09:07-0400Body suvylx484 [facility] [address] [place], [place] 4680307-31-2025 09:07-0400Body mass index (BMI) [Ratio]31.94 kg/m2fo [address] [place], [place] 4037007-31-2025 09:07-0400Body utuacjkvxou96.29 [degF]Pfo [address] [place], [place] 4037007-31-2025 09:07-0400Body ilvfde615.[address] [place], [place] 4680307-31-2025 09:07-0400Diastolic blood kwquheea10 mm[Hg]Pfo [address] [place], [place] 4037007-31-2025 09:07-0400Heart rate95 /minPfo [address] [place], [place] 4680307-31-2025 09:07-0400Respiratory rate20 /minPfo [address] [place], [place] 4680307-31-2025 09:07-4774JtN8% (BldA) [Mass fraction]95 %Pfo [address] [place], [place] 4680307-31-2025 09:07-0400Systolic blood mm[Hg]Pfo [address] [place], [place] 4680307-18-2025 12:03-0400Body jjiipe228 [facility] [address] [place] [address] 10-14-2024 12:03-0400Body mass index (BMI) [Ratio]32.29 kg/m2Pfo [address] [place], [place] 1819507-18-2025 12:03-0400Body tdogqqxujvv13.59 [degF]Pfo [address] [place], [place] 1819507-18-2025 12:03-0400Body .[address] [place], [place] 1819507-18-2025 12:03-0400Diastolic blood kjqakkgu27 mm[Hg]Pfo [address] [place], [place] 1819507-18-2025 12:03-0400Heart rate66 /minPfo [address] [place] [address] 10-14-2024 12:03-0400Respiratory rate15 /minPfo [address] [place] [address] 10-14-2024 12:03-6431DaE1% (BldA) [Mass fraction]93 %Pfo [address] [place], [place] 1819507-18-2025 12:03-0400Systolic blood umkzplec743 mm[Hg]Pfo [address] [place], [place] 1819507-17-2025 08:54-0649NtU5% (BldA) [Mass fraction]95 %Pfo [address] [place], [place] 4680307-17-2025 08:48-0400Body [address] 10-13-2024 08:48-0400Body mass index (BMI) [Ratio]31.78 kg/m2Pfo [address] [place], [place] 4680307-17-2025 08:48-0400Body ebpmqfeuudd71.5 [degF]Pfo [address] [place], [place] 4680307-17-2025 08:48-0400Body .[address] [place], [place] 4680307-17-2025 08:48-0400Diastolic blood febztwbi77 mm[Hg]Pfo [address] [place], [place] 4680307-17-2025 08:48-0400Heart mvbg060 /minPfo [address] [place] [address] 10-13-2024 08:48-0400Respiratory rate16 /minPfo [address] [place] [address] 10-13-2024 08:48-0400Systolic blood wppwjsic315 mm[Hg]Pfo [address] [place], [place] 4680307-03-2025 07:56-0400Body vfswoz654 [facility] [address] [place] [address] 09-29-2024 07:56-0400Body mass index (BMI) [Ratio]31.32 kg/m[address]07-03-2025 07:56-0400Body psqdbsybakx25.39 [degF]Pfo [address] [place], [place] 4680307-03-2025 07:56-0400Body .[address] [place], [place] 4680307-03-2025 07:56-0400Diastolic blood mdbaprjx42 mm[Hg][address]07-03-2025 07:56-0400Heart rate95 /min[address] 09-29-2024 07:56-0400Respiratory rate16 /min[address] 09-29-2024 07:56-9941RcU0% (BldA) [Mass fraction]94 %[address]07-03-2025 07:56-0400Systolic blood ifycojct333 mm[Hg][address]06-20-2025 14:47-0400Body uwqplv472 Abel Prado MD Work Phone: [facility]06-20-2025 14:47-0400Body mass index (BMI) [Ratio]31.64 kg/j0DvpvsWallace Prado MD Work Phone: [facility]06-20-2025 14:47-0400Body ugfmdvfdoxc37.7 [degF]Wallace Prado MD Work Phone: [facility]06-20-2025 14:47-0400Body ktlaer995.96 kgWallace Prado MD Work Phone: [facility]06-20-2025 14:47-0400Diastolic blood nxvflbas13 mm[Hg]Wallace Prado MD Work Phone: [facility] [facility]06-20-2025 14:47-0400Heart rate 75 /minWallace Prado MD Work Phone: [facility]06-20-2025 14:47-0400 Respiratory rate16 /minWallace Prado MD Work Phone: [facility]06-20-2025 14:47-1684EnA9% (BldA) [Mass fraction]93 %Wallace Prado MD Work Phone: [facility]06-20-2025 14:47-0400Systolic blood hsmqtced837 mm[Hg]Wallace Prado MD Work Phone: [facility]06-19-2025 11:07-0400Body dupbor546 [facility] [address] [place], [place] 4680306-19-2025 11:07-0400Body mass index (BMI) [Ratio]31.4 kg/m2Pfo [address] [place], [place] 4680306-19-2025 11:07-0400Body apyurdqveqb91.39 [degF]Pfo [address] [place], [place] 4680306-19-2025 11:07-0400Body useswk269.[address] [place], [place] 4680306-19-2025 11:07-0400Diastolic blood caupcbwj14 mm[Hg]Pfo [address] [place], [place] 4680306-19-2025 11:07-0400Heart bllv730 /minPfo [address] [place], [place] 4680306-19-2025 11:07-0400Respiratory rate18 /minPfo [address] [place], [place] 4680306-19-2025 11:07-4378HmO8% (BldA) [Mass fraction]94 %[address]06-19-2025 11:07-0400Systolic blood umfztbut680 mm[Hg] o [address] [place], [place] 4680306-06-2025 13:05-0400Body [address]06-06-2025 13:05-0400Body mass index (BMI) [Ratio]31.45 kg/m2Pfo 1 [facility]06-06-2025 13:05-0400Body roaiekoffhh02.39 [degF]Pfo 1 [facility]06-06-2025 13:05-0400Body macced564.[address] [place], [place] 1819506-06-2025 13:05-0400Diastolic blood lnhbykau07 mm[Hg]Pfo 1 [facility]06-06-2025 13:05-0400Heart rate60 /minPfo [address] [place], [place] 1819506-06-2025 13:05-0400Respiratory rate16 /minPfo [address] [place], [place] 1819506-06-2025 13:05-2429PrG3% (BldA) [Mass fraction]95 %Pfo [address] [place], [place] 1819506-06-2025 13:05-0400Systolic blood atmokftv426 mm[Hg]Pfo [address] [place], [place] 1819506-05-2025 08:50-0400Body ksarle791 [facility] [address] [place] [address] 09-01-2024 08:50-0400Body mass index (BMI) [Ratio]31.04 kg/m2Pfo [address] [place], [place] 4680306-05-2025 08:50-0400Body hljtvkcqami93.1 [degF]Pfo [address] [place], [place] 4680306-05-2025 08:50-0400Body bsvdow175.[address] [place], [place] 4680306-05-2025 08:50-0400Diastolic blood mdnvyhcg66 mm[Hg]Pfo [address] [place], [place] 4680306-05-2025 08:50-0400Heart rate92 /minPfo [address] [place] [address] 09-01-2024 08:50-0400Respiratory rate16 /minPfo [address] [place] [address] 09-01-2024 08:50-4476PjK3% (BldA) [Mass fraction]92 %Pfo [address] [place], [place] 4680306-05-2025 08:50-0400Systolic blood jwskiroo490 mm[Hg]Pfo [address] [place], [place] 4680305-09-2025 13:29-0400Body wvmuhx847 [address] 08-05-2024 13:29-0400Body mass index (BMI) [Ratio]31.15 kg/m2fo [address] [place], [place] 1819505-09-2025 13:29-0400Body tiqesnjhqwb96.29 [degF]Pfo [address] [place], [place] 1819505-09-2025 13:29-0400Body fnidqy801.[address] [place], [place] 1819505-09-2025 13:29-0400Diastolic blood mm[Hg]Pfo [address] [place], [place] 1819505-09-2025 13:29-0400Heart rate69 /minPfo [address] [place] [address] 08-05-2024 13:29-0400Respiratory rate16 /minPfo [address] [place] [address] 08-05-2024 13:29-8852MjC0% (BldA) [Mass fraction]91 %Pfo [address] [place], [place] 1819505-09-2025 13:29-0400Systolic blood divtzcmh793 mm[Hg]Pfo [address] [place], [place] 1819505-08-2025 09:57-0400Body dobfrg509 [facility] [address] [place] [address] 08-04-2024 09:57-0400Body mass index (BMI) [Ratio]31.15 kg/m2fo [address] [place], [place] 1819505-08-2025 09:57-0400Body uzjeqdnysay78.3 [degF]Pfo [address] [place], [place] 1819505-08-2025 09:57-0400Body ligopu939.[address] [place], [place] 1819505-08-2025 09:57-0400Diastolic blood clmanyyy26 mm[Hg]o [address] [place], [place] 1819505-08-2025 09:57-0400Heart rate96 /minPfo [address] [place] [address] 08-04-2024 09:57-0400Respiratory rate18 /minPfo [address] [place] [address] 08-04-2024 09:57-4487LhP5% (BldA) [Mass fraction]95 %Pf[address]05-08-2025 09:57-0400Systolic blood pnuflmad977 mm[Hg]o [address] [place], [place] 1819504-25-2025 14:21-0400Body szkhyd833 [facility] [address] [place] [address] 07-22-2024 14:21-0400Body mass index (BMI) [Ratio]31.21 kg/m2fo [address] [place], [place] 1819504-25-2025 14:21-0400Body ulpmhdfjloz32.2 [degF]Pfo [address] [place], [place] 1819504-25-2025 14:21-0400Body ugmwpo506.[address] [place], [place] 1819504-25-2025 14:21-0400Diastolic blood bwvewdko32 mm[Hg]Pf[address]04-25-2025 14:21-0400Heart rate72 /minPfo [address] [place] [address] 07-22-2024 14:21-0400Respiratory rate16 /minPfo [address] [place] [address] 07-22-2024 14:21-3022XkI6% (BldA) [Mass fraction]96 %Pf[address]04-25-2025 14:21-0400Systolic blood ugcgtpch283 mm[Hg][address]04-24-2025 09:59-0400Body rsbujy196 Abel Prado MD Work Phone: [facility]04-24-2025 09:59-0400Body mass index (BMI) [Ratio]30.58 kg/b5GxttaWallace Prado MD Work Phone: [facility]04-24-2025 09:59-0400Body snzistdatqv89.5 [degF]Wallace Prado MD Work Phone: [facility]04-24-2025 09:59-0400Body djsadw969.42 kgWallace Prado MD Work Phone: [facility]04-24-2025 09:59-0400Diastolic blood zgfpxzap24 mm[Hg]Wallace Prado MD Work Phone: [facility]04-24-2025 09:59-0400Heart rate 77 /Lakeshia Prado MD Work Phone: [facility]04-24-2025 09:59-0400 Respiratory rate16 /Lakeshia Prado MD Work Phone: [facility]04-24-2025 09:59-8211UrW6% (BldA) [Mass fraction]96 %Wallace Prado MD Work Phone: [facility]04-24-2025 09:59-0400Systolic blood fxiretxu228 mm[Hg]Wallace Prado MD Work Phone: [facility]04-10-2025 09:41-0400Body lereqc238 cmPfo [address] [place], [place] 3648204-10-2025 09:41-0400Body mass index (BMI) [Ratio]30.18 kg/m2P[address]04-10-2025 09:41-0400Body vzavpn060.[address]04-10-2025 08:59-0400Body mass index (BMI) [Ratio]29.95 kg/z6RayzuWallace Prado MD Work Phone: [facility]04-10-2025 08:59-0400Body joupwnlgjgo91.3 [degF]Wallace Prado MD Work Phone: [facility]04-10-2025 08:59-0400Body tahgwl885.97 kgWallace Prado MD Work Phone: [facility]04-10-2025 08:59-0400Diastolic blood yycuklut00 mm[Hg]Wallace Prado MD Work Phone: [facility]04-10-2025 08:59-0400Heart rate 109 /minWallace Prado MD Work Phone: [facility]04-10-2025 08:59-0400 Respiratory rate24 /minWallace Prado MD Work Phone: [facility]04-10-2025 08:59-0729WbP8% (BldA) [Mass fraction]91 %Wallace Prado MD Work Phone: [facility]04-10-2025 08:59-0400Systolic blood iprtljdw604 mm[Hg]Wallace Prado MD Work Phone: [facility]03-06-2025 11:17-0500Body .9 Abel Prado MD Work Phone: [facility]03-06-2025 11:17-0500Body mass index (BMI) [Ratio]30.45 kg/w0FfbhyWallace Prado MD Work Phone: 1(094)0-[address] [place], [place] 9860103-06-2025 11:17-0500Body fhcfwohwsfu97.5 [degF]Wallace Prado MD Work Phone: 1(545)702-[address] [place], [place] 9860103-06-2025 11:17-0500Body gkyoer397.88 kgWallace Prado MD Work Phone: 1(560)[address] [place], [place] 9860103-06-2025 11:17-0500Diastolic blood efizpsxh30 mm[Hg]Wallace Prado MD Work Phone: 1(041)1-[address] [place], [place] 9860103-06-2025 11:17-0500Heart rate 101 /minWallace Prado MD Work Phone: 1(969)6-[address] [place], [place] 9860103-06-2025 11:17-0500 Respiratory rate16 /minWallace Prado MD Work Phone: 1(022)6-[address] [place], [place] 9860103-06-2025 11:17-7452GxM5% (BldA) [Mass fraction]95 %Wallace Prado MD Work Phone: 1(751)0-[address] [place], [place] 9860103-06-2025 11:17-0500Systolic blood umgkzgvi989 mm[Hg]Wallace Prado MD Work Phone: 1(045)[address] [place], [place] 9860103-04-2025 09:04-0500Body lyhmdr445.4 cmQuin Mas MD Work Phone: [facility] CenterVljurtbdia42-83-8488 09:04-0500Body mass index (BMI) [Ratio]26.39 kg/x4LjlirhQuin Mas MD Work Phone: [facility] CenterXcfkutzryr42-09-2665 09:04-0500Body giznvt27.72 kgQuin Mas MD Work Phone: [facility] CenterUdjlfptlby35-94-7187 09:04-0500Diastolic blood sjqsbhdu74 mm[Hg]Quin Mas MD Work Phone: 1(419)483-[address] [place], [place] [address]Onmldrfiry47-61-4157 09:04-0500Heart fyel277 /min Quin Mas MD Work Phone: 1(237)[address] [place], [place] 3120103-04-2025 09:04-0500Systolic blood jkhzfhij313 mm[Hg]Quin Mas MD Work Phone: 1(534)[address] [place], [place] 3120101-29-2025 11:09-0500Body isrsrk972.4 cmQuin Mas MD Work Phone: 1(500)[address] [place], [place] 3120101-29-2025 11:09-0500Body mass index (BMI) [Ratio]26.39 kg/e4BizmhmQuin Mas MD Work Phone: 1(720)[address] [place], [place] 3120101-29-2025 11:09-0500Body xmoqnc53.72 kgQuin Mas MD Work Phone: 1(816)[address] [place], [place] 3120101-29-2025 11:09-0500Diastolic blood gilaovvo63 mm[Hg]Quin Mas MD Work Phone: 1(565)[address] [place], [place] 3120101-29-2025 11:09-0500Heart qksf018 /min Quin Mas MD Work Phone: 1(580)[address] [place], [place] 3120101-29-2025 11:09-0500Systolic blood uydepwux83 mm[Hg]Quin Mas MD Work Phone: 1(428)[facility] [place], [place] [address]Pwcnwebwck92-23-0360 13:32-0500Body ipibbt103.9 Abel Prado MD Work Phone: [facility]01-09-2025 13:32-0500Body mass index (BMI) [Ratio]29.78 kg/i2MghmdWallace Prado MD Work Phone: [facility]01-09-2025 13:32-0500Body zvnuplhgtrd00.5 [degF]Wallace Prado MD Work Phone: [facility]01-09-2025 13:32-0500Body .61 kgWallace Prado MD Work Phone: [facility]01-09-2025 13:32-0500Diastolic blood rodpcstk21 mm[Hg]Wallace Prado MD Work Phone: 1(325)321-[address] [place] [address] [employer] Zyyutq00-79-4379 13:32-0500Heart rate 104 /minWallace Prado MD Work Phone: 1(859)091-[address] [place], [place] 9860101-09-2025 13:32-0500 Respiratory rate16 /minWallace Prado MD Work Phone: 1(812)165-[address] [place], [place] 9860101-09-2025 13:32-7927HpI8% (BldA) [Mass fraction]96 %Wallace Prado MD Work Phone: 1(757)595-[address] [place] [address] [employer] Apabdb65-86-4050 13:32-0500Systolic blood tsbgfyfe257 mm[Hg]Wallace Prado MD Work Phone: 1(603)134-[address] [place] [address] [employer] Aymwha43-84-4546 13:20-0500Body avioyb717.9 Abel Prado MD Work Phone: 1(014)7-[address] [place], [place] 9860112-06-2024 13:20-0500Body mass index (BMI) [Ratio]29.56 kg/x3PeapyWallace Prado MD Work Phone: 1(150)738-[address] [place] [address] [employer] Wwlqik60-65-3809 13:20-0500Body xhgwqsafzgr48.7 [degF]Wallace Prado MD Work Phone: [place] [address] [employer] Bqsduz12-89-1123 13:20-0500Body dvchma55.88 kgWallace Prado MD Work Phone: 1(447)5-[address] [place], [place] 9860112-06-2024 13:20-0500Diastolic blood olzrgmlq48 mm[Hg]Wallace Prado MD Work Phone: 1(002)371-[address] [place] [address] [employer] Pkrocg92-09-5868 13:20-0500Heart rate 83 /minWallace Prado MD Work Phone: 1(747)792-[address] [place] [address] [employer] Izcpky30-54-0461 13:20-0500 Respiratory rate18 /minWallace Prado MD Work Phone: 1(852)379-28[facility] [employer] Yzysbz98-42-6153 13:20-0801QwF5% (BldA) [Mass fraction]98 %Wallace Prado MD Work Phone: [facility]12-06-2024 13:20-0500Systolic blood imufbblv478 mm[Hg]Wallace Prado MD Work Phone: [facility]11-25-2024 10:14-0500Body qfsybh659.4 cmQuin Mas MD Work Phone: [place] [address]Vxjqbiabdd57-10-3989 10:14-0500Body mass index (BMI) [Ratio]26.39 kg/b6Aueihlamber Mas MD Work Phone: [place] [address]Sycpciqrjm70-16-8183 10:14-0500Body ldlgod93.72 kgQuin Mas MD Work Phone: [facility] CenterJzaxoqwrgx61-75-9908 10:14-0500Diastolic blood zhukskkb20 mm[Hg]Quin Mas MD Work Phone: [facility] CenterGezpcscdpq54-86-0977 10:14-0500Systolic blood pbhsomcm15 mm[Hg]Quin Mas MD Work Phone: [place] [address]Wwsfucxrdg42-45-2871 10:17-0500Body ahaemm278.9 [facility] [address] [place], [place] 1819511-14-2024 10:17-0500Body mass index (BMI) [Ratio] 29.13 kg/m2Pfo [address] [place], [place] 1819511-14-2024 10:17-0500Body jeqszgbksgj17.9 [degF]Pf[address]11-14-2024 10:17-0500Body kiupyd17.43 kgPfo 1 [facility]11-14-2024 10:17-0500Diastolic blood ozxtxjua46 mm[Hg][place] [address]-14-2024 10:17-0500Heart rokl830 /minPfo [address] [place], [place] 1819511-14-2024 10:17-0500Respiratory rate18 /minPfo [address] [place], [place] 1819511-14-2024 10:17-9033HxM6% (BldA) [Mass fraction]96 %Pfo [address] [place], [place] 1819511-14-2024 10:17-0500Systolic blood qwkliueo918 mm[Hg]Pfo [address] [place], [place] 1819510-31-2024 10:10-0400Body twkqyi188.9 [facility] [address] [place], [place] 1819510-31-2024 10:10-0400Body mass index (BMI) [Ratio]28.21 kg/m2Pfo 1 [facility]10-31-2024 10:10-0400Body aaavfoooedj40.81 [degF]Pfo 1 [facility]10-31-2024 10:10-0400Body rezjje15.[address] [place], [place] 1819510-31-2024 10:10-0400Diastolic blood cwxyhoki70 mm[Hg]Pfo 1 [facility]10-31-2024 10:10-0400Heart rate91 /minPfo [address] [place], [place] 1819510-31-2024 10:10-0400Respiratory rate18 /minPfo [address] [place], [place] 1819510-31-2024 10:10-0150PtP9% (BldA) [Mass fraction]96 %Pfo [address] [place], [place] 1819510-31-2024 10:10-0400Systolic blood xparxern157 mm[Hg]Pfo [address] [place], [place] 1819510-18-2024 11:07-0400Body .9 [facility] [address] [place], [place] 1819510-18-2024 11:07-0400Body mass index (BMI) [Ratio]28.47 kg/m2Pfo 1 [facility]10-18-2024 11:07-0400Body arbofebhfbb63.59 [degF]Pfo 1 [facility]10-18-2024 11:07-0400Body .[address] [place], [place] 1819510-18-2024 11:07-0400Diastolic blood qxumltaa59 mm[Hg]Pfo 1 [facility]10-18-2024 11:07-0400Heart rate85 /minPfo [address] [place], [place] 1819510-18-2024 11:07-2461SmH1% (BldA) [Mass fraction]98 %Pfo [address] [place], [place] 1819510-18-2024 11:07-0400Systolic blood paxvcvhn186 mm[Hg]Pfo 1 [facility]10-17-2024 09:28-0400Body sezirm722.9 Abel Prado MD Work Phone: [facility]10-17-2024 09:28-0400Body mass index (BMI) [Ratio]28.28 kg/j0NemftWallace Prado MD Work Phone: [address] [place], [place] 5412510-17-2024 09:28-0400Body lgtoddkkgkv02.1 [degF]Wallace Prado MD Work Phone: [address] [place], [place] 5412510-17-2024 09:28-0400Body .62 kgWallace Prado MD Work Phone: [address] [place], [place] 5412510-17-2024 09:28-0400Diastolic blood fguexswn70 mm[Hg]Wallace Prado MD Work Phone: [address] [place], [place] 5412510-17-2024 09:28-0400Heart rate 93 /Lakeshia Prado MD Work Phone: [facility]10-17-2024 09:28-0400 Respiratory rate20 /Lakeshia Prado MD Work Phone: [address] [place], [place] 5412510-17-2024 09:28-0500ChS1% (BldA) [Mass fraction]100 %Wallace Prado MD Work Phone: [facility]10-17-2024 09:28-0400Systolic blood gjjdsetv272 mm[Hg]Wallace Prado MD Work Phone: [facility]10-03-2024 10:05-0400Body .[address] [place], [place] 1819510-03-2024 10:05-0400Body mass index (BMI) [Ratio]28.2 kg/m2Pfo [address] [place], [place] 1819510-03-2024 10:05-0400Body mvpujwljdrx16.81 [degF]Pfo [address] [place], [place] 1819510-03-2024 10:05-0400Body .[address] [place], [place] 1819510-03-2024 10:05-0400Diastolic blood fmqwvakf33 mm[Hg]Pfo [address] [place], [place] 1819510-03-2024 10:05-0400Heart rate97 /minPfo [address] [place], [place] 1819510-03-2024 10:05-0400Respiratory rate20 /minPfo [address] [place], [place] 1819510-03-2024 10:05-7234YfE8% (BldA) [Mass fraction]96 %Pfo [address] [place], [place] 1819510-03-2024 10:05-0400Systolic blood pxwtonkf588 mm[Hg] Pfo [address] [place], [place] 1819509-19-2024 10:02-0400Body boelln214.9 cmPfo 1 [facility]09-19-2024 10:02-0400Body mass index (BMI) [Ratio]28.2 kg/m2Pfo [address] [place], [place] 1819509-19-2024 10:02-0400Body sxljyshcumi65.81 [degF]Pfo [address] [place], [place] 1819509-19-2024 10:02-0400Body .35 kgPfo 1 [facility]09-19-2024 10:02-0400Diastolic blood afdqpiiz90 mm[Hg]Pfo [address] [place], [place] 1819509-19-2024 10:02-0400Heart rate98 /minPfo [address] [place], [place] 1819509-19-2024 10:02-0400Respiratory rate20 /minPfo [address] [place], [place] 1819509-19-2024 10:02-0787GaS2% (BldA) [Mass fraction]94 %Pfo [address] [place], [place] 1819509-19-2024 10:02-0400Systolic blood hfpqzerf259 mm[Hg]Pfo [address] [place], [place] 1819509-05-2024 09:35-0400Body .9 Abel Prado MD Work Phone: [facility]09-05-2024 09:35-0400Body mass index (BMI) [Ratio]28.34 kg/y5CfdsyWallace Prado MD Work Phone: [facility]09-05-2024 09:35-0400Body dwhjevkgcto14.59 [degF]Centeno Johan MD Work Phone: [facility]09-05-2024 09:35-0400Body akggom87.8 kgWallace Prado MD Work Phone: [facility]09-05-2024 09:35-0400Diastolic blood uetmjrhp86 mm[Hg]Wallace Prado MD Work Phone: [facility]09-05-2024 09:35-0400Heart rate 112 /minWallace Prado MD Work Phone: [facility]09-05-2024 09:35-0400 Respiratory rate20 /minWallace Prado MD Work Phone: [facility]09-05-2024 09:35-0972WmX2% (BldA) [Mass fraction]95 %Wallace Prado MD Work Phone: [facility]09-05-2024 09:35-0400Systolic blood phtowhbl639 mm[Hg]Wallace Prado MD Work Phone: [facility]08-22-2024 10:29-0400Body zqlyfj186.[address] [place], [place] 1819508-22-2024 10:29-0400Body mass index (BMI) [Ratio]28.07 kg/m2Pfo [address] [place], [place] 1819508-22-2024 10:29-0400Body ylsxeucfupa11.01 [degF]Pfo [address] [place], [place] 1819508-22-2024 10:29-0400Body .[address] [place], [place] 1819508-22-2024 10:29-0400Diastolic blood hknnbcxa65 mm[Hg][address]08-22-2024 10:29-0400Heart rate89 /minP[address]08-22-2024 10:29-0400Respiratory rate20 /minfo [address] [place], [place] 1819508-22-2024 10:29-2635QtF9% (BldA) [Mass fraction]97 %[address]08-22-2024 10:29-0400Systolic blood dcymrkdu454 mm[Hg] [facility] 10:00-0400Body knmwie372.9 cmPfo 2 [facility]08-08-2024 10:00-0400Body mass index (BMI) [Ratio]26.98 kg[facility] 10:00-0400Body tmkofzlopps13.3 [degF][facility] 10:00-0400Body mnuslu05.27 kgPfo 2 [facility]08-08-2024 10:00-0400Diastolic blood cwrotywc76 mm[Hg]Pfo [address] [place], [place] 5647908-08-2024 10:00-0400Heart lebz069 /minPfo [address] [place], [place] 5647908-08-2024 10:00-0400Respiratory rate20 /minPfo [address] [place], [place] 5647908-08-2024 10:00-0734WkH3% (BldA) [Mass fraction]92 %Pfo [address] [place], [place] 5647908-08-2024 10:00-0400Systolic blood hrymyuil710 mm[Hg]Pfo [address] [place], [place] 5647907-25-2024 09:41-0400Body elagdx020.9 Abel Prado MD Work Phone: [facility]07-25-2024 09:41-0400Body mass index (BMI) [Ratio]26.6 kg/q1JsouiWallace Prado MD Work Phone: [facility]07-25-2024 09:41-0400Body wywijjpnwwe61.91 [degF]Wallace Prado MD Work Phone: [facility]07-25-2024 09:41-0400Body krjscy08 kgWallace Prado MD Work Phone: [facility]07-25-2024 09:41-0400Diastolic blood ndjuqmsr38 mm[Hg]Wallace Prado MD Work Phone: [facility]07-25-2024 09:41-0400Heart rate 116 /minWallace Prado MD Work Phone: [facility]07-25-2024 09:41-0400 Respiratory rate20 /Lakeshia Prado MD Work Phone: [facility]07-25-2024 09:41-2436JtR4% (BldA) [Mass fraction]94 %Wallace Prado MD Work Phone: [facility]07-25-2024 09:41-0400Systolic blood tyuciovn94 mm[Hg]Wallace Prado MD Work Phone: [facility]06-27-2024 09:46-0400Body gweqhd159.[address] [place], [place] 1819506-27-2024 09:46-0400Body mass index (BMI) [Ratio]28.64 kg/m2fo [address] [place], [place] 1819506-27-2024 09:46-0400Body dazzfezujar73.2 [degF]Pfo [address] [place], [place] 1819506-27-2024 09:46-0400Body vbetru92.[address] [place], [place] 1819506-27-2024 09:46-0400Diastolic blood zpjqkytv14 mm[Hg]Pfo [address] [place], [place] 1819506-27-2024 09:46-0400Heart llgo156 /minPfo [address] [place], [place] 1819506-27-2024 09:46-0400Respiratory rate20 /minPfo [address] [place], [place] 1819506-27-2024 09:46-9885EmM2% (BldA) [Mass fraction]94 %Pfo [address] [place], [place] 1819506-27-2024 09:46-0400Systolic blood mm[Hg] Pfo [address] [place], [place] 1819506-13-2024 09:50-0400Body jpuawv836.4 Abel Prado MD Work Phone: [facility]06-13-2024 09:50-0400Body mass index (BMI) [Ratio]29.69 kg/o0FogpvWallace Prado MD Work Phone: [facility]06-13-2024 09:50-0400Body wdabkzfirji38.01 [degF]Wallace Prado MD Work Phone: [facility] Zxroil92-24-2370 09:50-0400Body waqdpa099.06 kgWallace Prado MD Work Phone: [facility] [id number] 09:50-0400Diastolic blood rzzrlefu60 mm[Hg]Wallace Prado MD Work Phone: [facility] Ickzkl91-73-0179 09:50-0400Heart rate 120 /minWallace Prado MD Work Phone: [facility] Nfmrad22-04-3244 09:50-0400 Respiratory rate20 /minWallace Prado MD Work Phone: [facility] [id number] 09:50-9080HrX4% (BldA) [Mass fraction]93 %Wallace Prado MD Work Phone: [facility] Zlvsqe14-24-3331 09:50-0400Systolic blood mm[Hg]Wallace Prado MD Work Phone: [facility] Dajbax06-13-1932 10:57-0400Body mass index (BMI) [Ratio]27.58 kg/u4WsjxemAlysa Major 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 Work Phone: [facility] Lukkiw78-15-2719 10:57-0400Body njpulboenlw31.1 [degF]Alysa Major 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 Work Phone: [facility] Qzsevs44-85-4071 10:57-0400Body ulxlkq29.8 kgAlysa Major 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 Work Phone: [facility] CenterComment on above:verbal from pt 08-27-2023 10:57-0400Diastolic blood hackgqlm25 mm[Hg]Alysa Majro 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 Work Phone: [facility] Dpcunm61-49-8028 10:57-0400Heart rate 112 /minAlysa Major 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 Work Phone: [facility] [employer] Fwbgxz07-66-3716 10:57-0400 Respiratory rate18 /minBontom Major 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 Work Phone: [facility]05-30-2024 10:57-8158SwY7% (BldA) [Mass fraction]98 %Alysa Major 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 Work Phone: [facility]05-30-2024 10:57-0400Systolic blood qqbcqzjo29 mm[Hg]Alysa Major 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 Work Phone: [facility] [employer] Fqekmm25-41-6151 09:18-0400Body .4 Abel Prado MD Work Phone: [facility] [employer] Wqsfia11-80-4914 09:18-0400Body mass index (BMI) [Ratio]26.21 kg/z9LphojWallace Prado MD Work Phone: [facility]05-16-2024 09:18-0400Body zvehcpwslvz15.39 [degF]Wallace Prado MD Work Phone: [facility] Izxdoq29-91-1039 09:18-0400Body .08 kgWallace Prado MD Work Phone: [facility] Wopwbs31-68-1589 09:18-0400Diastolic blood oladkrcx42 mm[Hg]Wallace Prado MD Work Phone: [facility] [employer] Flkkqz36-95-1272 09:18-0400Heart rate 86 /minWallace Prado MD Work Phone: [facility] [employer] Uvihgu63-00-0590 09:18-0400 Respiratory rate24 /minWallace Prado MD Work Phone: [facility] [facility]05-16-2024 09:18-2051CbH2% (BldA) [Mass fraction]98 %Wallace Prado MD Work Phone: [facility]05-16-2024 09:18-0400Systolic blood oxmaipux103 mm[Hg]Wallace Prado MD Work Phone: [facility]05-03-2024 12:41-0400Body hdrizkiyson36.61 [degF][address]05-03-2024 12:41-0400 Diastolic blood gsmpznup46 mm[Hg][address]05-03-2024 12:41-0400Heart oecv942 /minPfo [address] [place], [place] [address]2705-03-2024 12:41-0400 Respiratory rate18 /minPfo [address] [place], [place] [address]752705-03-2024 12:41-9085ZvY2% (BldA) [Mass fraction]90 %[address]05-03-2024 12:41-0400 Systolic blood hzhaaeiw98 mm[Hg][address]05-03-2024 10:44-0400Body xtpirl039.[address]05-03-2024 10:44-0400 Body mass index (BMI) [Ratio]27.58 kg/m[address]05-03-2024 10:44-0400Body zcollp40.[address]04-04-2024 04:27-0400 SaO2% (BldA) [Mass fraction]91 %[facility]esville HospitalComment on above:Performed By: #### ABG ####[facility] ([id number])[facility] [place] [address] Encounters Encounter DateEncounter TypeCare ProviderFacilityStart: 01-17-2025 End: 26-70-6317Hribha pelvic examinationPfo [address] [place] [address] [facility] - Medical OncologyComment on above: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)Start: 01-17-2025 End: 65-64-0064wbcgqunefgSck Infusion Chair 1Dfelipe [facility] - Medical OncologyStart: 37-20-4667cbupoxatctLDBKD GRUBBUniversity Bay[facility] – Planotart: 12-20-2024 End: 05-59-2125cdppuvvzhqSGNJ [facility] Hospitaltart: 12-15-2024 End: 05-46-3194WhiqtxQdyng N Xia MD Work Phone: [facility] OncologyComment on above:Hodgkin lymphoma, unspecified Hodgkin lymphoma type, unspecified body region (CMS-HCC)Start: 12-09-2024 End: 59-38-2414Ifsbar pelvic examinationPfo 1DLafayette General Medical Center Medical OncologyComment on above: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)Start: 12-09-2024 End: 03-08-1688jicczmobaqNry Infusion Chair 1D[facility] OncologyStart: 12-08-2024 End: 32-30-9119Xamtqjtohnaec procedureCandace Misaelkinsrandall YUSUFDoBayne Jones Army Community Hospital OncologyStart: 12-08-2024 End: 49-95-3812Oixkby pelvic examinationPfo 5DNew [facility] OncologyComment on above: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)Start: 12-08-2024 End: 03-06-1157Teqfdc outpatient visit 25 Edin Prado MD Work Phone: [facility] Medical OncologyComment on above:Hodgkin lymphoma, unspecified Hodgkin lymphoma type, unspecified body region (CMS-HCC) (Primary Dx); 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)Start: 12-08-2024 End: 33-71-8341ceiyejnosaNux Infusion Chair 5DNew [facility] OncologyStart: 12-07-2024 End: 92-62-3529Nfywsd pelvic examinationPfo 1DNew [facility] OncologyComment on above: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); Hodgkin lymphoma, unspecified Hodgkin lymphoma type, unspecified body region (CMS-HCC); Essential (primary) hypertension; Fatigue, unspecified type; MalaiseStart: 12-07-2024 End: 80-82-8111tyrhmkfawbUan Infusion Chair 1Dfelipe Nelson [facility] OncologyStart: 11-25-2024 End: 13-02-7319Fsburq pelvic examinationPfo 1Dcross[facility] medical centerlesia Nelson [facility] OncologyComment on above: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)Start: 11-25-2024 End: 97-79-4548grnmkhbnraCne Infusion Chair 1Dfelipe Nelson [facility] OncologyStart: 11-24-2024 End: 50-87-1893Nnevak pelvic examinationMarprincea Tiff LSWDNew [facility] Hospital OncologyComment on above: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)Start: 11-24-2024 End: 18-01-6275ldgwzrhywyDwi Infusion Chair 7Dfelipe Nelson [facility] OncologyStart: 11-23-2024 End: 90-69-5674Rysuub pelvic examinationPfo 1DNew [facility] OncologyComment on above: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); Hodgkin lymphoma, unspecified Hodgkin lymphoma type, unspecified body region (CMS-HCC); Essential (primary) hypertension; Fatigue, unspecified type; MalaiseStart: 11-23-2024 End: 17-71-3805arjnwnozrfLqh Infusion Chair 1Dfelipe Nelson [facility] OncologyStart: 11-11-2024 End: 04-44-4969Pfrodx pelvic examinationPfo 1D[facility] OncologyComment on above: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)Start: 11-11-2024 End: 57-05-2372enzbrfhjjmRii Infusion Chair 1Dfelipe Nelson [facility] OncologyStart: 11-10-2024 End: 37-11-5775Xbrcoc pelvic examinationPfo 7DNew [facility] OncologyComment on above: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)Start: 11-10-2024 End: 23-71-8202hypbtbqdieQzv Infusion Chair 7Dfelipe Nelsno [facility] Medical OncologyStart: 11-09-2024 End: 67-44-6408Exeqmm pelvic examinationPfo 1Dfelipe [facility] - Medical OncologyComment on above: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); Hodgkin lymphoma, unspecified Hodgkin lymphoma type, unspecified body region (CMS-HCC); Essential (primary) hypertension; Fatigue, unspecified type; MalaiseStart: 11-09-2024 End: 46-01-5346ialhocyadtLxz Infusion Chair 1Dfelipe Nelson [facility] Medical OncologyStart: 11-04-2024 End: 09-27-5302Fhrcpw outpatient visit 40 minutesWallace Prado MD Work Phone: [facility] OncologyComment on above: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); Hodgkin lymphoma, unspecified Hodgkin lymphoma type, unspecified body region (CMS-HCC)Start: 11-04-2024 End: 11-47-4409Unwpfy Jaquelin Burton RNDoBayne Jones Army Community Hospital OncologyStart: 49-25-5690cmpnsaocngQJLB [facility] Hospitaltart: 72-79-2241Rgawatpka for preprocedural cardiovascular examination CARLOS [facility] Hospitaltart: 10-28-2024 End: 00-81-8945Xmiebf pelvic examinationPfo 1D[facility] Leslie [facility] Medical OncologyComment on above: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)Start: 10-28-2024 End: 34-31-2779aivhrufnuaInj Infusion Chair 1Dutelesia Nelson [facility] Medical OncologyStart: 10-27-2024 End: 01-18-3245Qqfyzs pelvic examinationPfo 7Dfelipe Nelson [facility] Medical OncologyComment on above: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)Start: 10-27-2024 End: 89-76-2923gsplddgbxcLve Infusion Chair 7Dfelipe Nelson [facility] OncologyStart: 10-26-2024 End: 13-84-5315Jjozvq pelvic examinationPfo 1Dfelipe Nelson [facility] OncologyComment on above: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); Hodgkin lymphoma, unspecified Hodgkin lymphoma type, unspecified body region (CMS-HCC); Essential (primary) hypertension; Fatigue, unspecified type; MalaiseStart: 10-26-2024 End: 27-16-2473biqxosjkmuZhb Infusion Chair 1Dfelipe Nelson [facility] OncologyStart: 10-24-2024 End: 50-39-0535svlujlodyuUOTXWEHarrison Community Hospital Start: 10-14-2024 End: 46-47-8387Pbxpnu pelvic examinationPfo 1DLafayette [facility] Medical OncologyComment on above: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)Start: 10-14-2024 End: 54-79-6034oanhysnmacCxg Infusion Chair 1Dfelipe Nelson [facility] OncologyStart: 10-13-2024 End: 08-78-1745Dzejij pelvic examinationPfo 7Dfelipe Nelson [facility] OncologyComment on above: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)Start: 10-13-2024 End: 88-02-5744oucxopefsaDth Infusion Chair 7Dfelipe Nelson [facility] OncologyStart: 10-12-2024 End: 64-83-4621Gcqzrr pelvic examinationPfo 1DLafayette [facility] Medical OncologyComment on above: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); Hodgkin lymphoma, unspecified Hodgkin lymphoma type, unspecified body region (CMS-HCC); Essential (primary) hypertension; Fatigue, unspecified type; MalaiseStart: 10-12-2024 End: 42-34-5774zgybnkzshsWff Infusion Chair 1Dfelipe Nelson [facility] Medical OncologyStart: 09-30-2024 End: 35-77-9834jyxqquizelBmp Infusion Chair 1Dfelipe Nelson [facility] OncologyStart: 09-30-2024 End: 77-52-1587Gpztra pelvic examinationPfo 1D[facility] OncologyComment on above: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)Start: 09-29-2024 End: 92-39-7525Xomdoq pelvic examinationPfo 7DNew [facility] OncologyComment on above: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)Start: 09-29-2024 End: 85-27-4599jtkefjoamvQob Infusion Chair AmandautePleasant Valley Hospital OncologyStart: 09-28-2024 End: 25-38-6307Lmvpnz pelvic examinationWallace Prado MD Work Phone: [facility] OncologyComment on above: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); Hodgkin lymphoma, unspecified Hodgkin lymphoma type, unspecified body region (CMS-HCC); Essential (primary) hypertension; Fatigue, unspecified type; MalaiseStart: 09-28-2024 End: 50-33-6969rusyfpsocyImu Infusion Chair 1Dfelipe [facility] OncologyStart: 09-16-2024 End: 84-38-7465Pxmbsz outpatient visit 25 minutesWallace Prado MD Work Phone: [facility] OncologyComment on above: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); Hodgkin lymphoma, unspecified Hodgkin lymphoma type, unspecified body region (CMS-HCC)Start: 09-16-2024 End: 64-95-8149JfjkrtRuth ArellanoBayne Jones Army Community Hospital OncologyComment on above: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)Start: 09-15-2024 End: 07-36-6186ntgqrbmzsbBwb Infusion Chair AmandaNew [facility] OncologyStart: 09-15-2024 End: 52-32-0057Xaetlf pelvic examinationPfo 7DNew [facility] OncologyComment on above: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)Start: 09-13-2024 End: 44-05-2153JtvmblGcrdko Seger RNDorotdeshawn [facility] OncologyComment on above:Hodgkin lymphoma, unspecified Hodgkin lymphoma type, unspecified body region (CMS-HCC)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); Hodgkin lymphoma, unspecified Hodgkin lymphoma type, unspecified body region (CMS-HCC); Essential (primary) hypertension; Fatigue, unspecified type; MalaiseStart: 09-09-2024 End: 60-26-9032wwnuxbqggtHVYFXTemecula Valley Hospitaltart: 09-02-2024 End: 06-94-8996Ctjwgb pelvic examinationPfo 1DLaf[facility] Medical OncologyComment on above: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)Start: 09-02-2024 End: 86-10-6752urjandawxoAqo Infusion Chair 1D[facility] OncologyStart: 09-01-2024 End: 10-70-2465Pxgsgj pelvic examinationPfo 7D[facility] OncologyComment on above: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)Start: 09-01-2024 End: 88-45-4052tvawqlburbUfb Infusion Chair 7D[facility] OncologyStart: 08-30-2024 End: 41-91-0191Lpzgko pelvic examinationPfo 1D[facility] OncologyComment on above: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); Hodgkin lymphoma, unspecified Hodgkin lymphoma type, unspecified body region (CMS-HCC); Essential (primary) hypertension; Fatigue, unspecified type; MalaiseStart: 08-30-2024 End: 29-66-6786rnkonihvedOpp Infusion Chair 1DL[facility] Medical OncologyStart: 08-24-2024 End: 95-55-9799Yzbsyobjphafw procedureShannanoemi Patel RNDorotdeshawn Nelson [facility] OncologyStart: 08-23-2024 End: 70-88-4109Ghfvsb Shanda Prado MD Work Phone: Dojasmeetdeshawn Nelson [facility] OncologyStart: 08-19-2024 End: 90-04-4012liflrfvbzvOATDWKBarney Children's Medical Centertart: 08-18-2024 End: 87-91-7628kchpnbtrzhRNSVHLBarney Children's Medical Centertart: 08-16-2024 End: 98-50-0553Tiqzkf pelvic examinationPfo 1D[facility] OncologyComment on above: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); Hodgkin lymphoma, unspecified Hodgkin lymphoma type, unspecified body region (CMS-HCC); Essential (primary) hypertension; Fatigue, unspecified type; MalaiseStart: 08-16-2024 End: 22-40-8361rtdoixkwstPlz Infusion Chair 1D[facility] OncologyStart: 08-05-2024 End: 88-65-7847Vldlay pelvic examinationPfo 1D[facility] OncologyComment on above: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)Start: 08-05-2024 End: 32-12-0658ivjzwwmopqIkl Infusion Chair 1D[facility] OncologyStart: 08-04-2024 End: 13-08-0346Stltfy WorkMarjuventino Tiff LSWDNew [facility] Hospital OncologyComment on above: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)Start: 08-03-2024 End: 34-09-7748Hxvpme Shanda Prado MD Work Phone: [facility] Oncology, A [facility] Systemtart: 08-02-2024 End: 73-05-9911Lnhnkp pelvic examinationPfo 1DLafayette [facility] Medical OncologyComment on above: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); Hodgkin lymphoma, unspecified Hodgkin lymphoma type, unspecified body region (CMS-HCC); Essential (primary) hypertension; Fatigue, unspecified type; MalaiseStart: 08-02-2024 End: 38-86-8294jmljovxsgiNma Infusion Chair 1DL[facility] Medical OncologyStart: 07-22-2024 End: 60-49-0357Laafuu pelvic examinationPfo 1DL[facility] Medical OncologyComment on above: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)Start: 07-22-2024 End: 44-55-7309sgkpdvrpgxOnq Infusion Chair 1D[facility] OncologyStart: 07-21-2024 End: 86-89-7027Fiiabk outpatient visit 25 minutesChanatalya Prado MD Work Phone: [facility] Medical OncologyComment on above: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); Hodgkin lymphoma, unspecified Hodgkin lymphoma type, unspecified body region (CMS-HCC)Start: 07-21-2024 End: 06-59-5689Vgwhci WorkMarjuventino Matthew LSWDNew [facility] - Medical OncologyComment on above: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)Start: 07-18-2024 End: 01-39-2471Nnvkrw pelvic examinationPfo 1D[facility] OncologyComment on above: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); Hodgkin lymphoma, unspecified Hodgkin lymphoma type, unspecified body region (CMS-HCC); Essential (primary) hypertension; Fatigue, unspecified type; MalaiseStart: 07-18-2024 End: 24-88-6613drsjpzmuroZiq Infusion Chair 1D[facility] - Medical OncologyStart: 48-81-3369fpwrnfwepaPTXMFort Hamilton Hospitaltart: 07-07-2024 End: 68-38-5936Nagknn outpatient visit 40 Edin Prado MD Work Phone: [facility] OncologyComment on above: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 Joseph Hospital - Medical OncologyComment on above:Hodgkin lymphoma, unspecified Hodgkin lymphoma type, unspecified body region (CMS-HCC) (Primary Dx); Hodgkin lymphoma of intrapelvic lymph nodes, unspecified Hodgkin lymphoma type (CMS-HCC); Encounter for monitoring cardiotoxic drug therapy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)Start: 07-06-2024 End: 56-52-5754Kfblhn Shanda Prado MD Work Phone: [facility] On[facility], A [facility] Systemtart: 07-05-2024 End: 83-19-4581Xsnkdr pelvic examinationPfo 1D[facility] OncologyComment on above: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); Hodgkin lymphoma, unspecified Hodgkin lymphoma type, unspecified body region (CMS-HCC); Essential (primary) hypertension; Fatigue, unspecified type; MalaiseStart: 07-05-2024 End: 30-39-8858axdwxirdxdRrw Infusion Chair 1D[facility] - Medical OncologyStart: 07-01-2024 End: 32-60-3695Peilbl WorkMarjuventino Matthew [facility]ITALProC[facility] Oncology - Radiation OncologyStart: 06-30-2024 End: 65-27-2996Ijdaoq Guera ArellanoIberia Medical Center - Medical OncologyComment on above:Hodgkin lymphoma, unspecified Hodgkin lymphoma type, unspecified body region (CMS-HCC) (Primary Dx); 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 ([facility]-HCC); Essential (primary) hypertension; Fatigue, unspecified type; MalaiseStart: 06-15-2024 End: 00-07-5690ehscbtcynjZZDD [facility] Hospitaltart: 06-13-2024 End: 17-26-1198ZhpxohQbsfl Meza RNNeela [facility] OncologyComment on above:Hodgkin lymphoma, unspecified Hodgkin lymphoma type, unspecified body region (CMS-HCC)Start: 06-10-2024 End: 84-27-7367Tgwibt Shanda Prado MD Work Phone: Neela [facility] OncologyComment on above: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)Hodgkin lymphoma, unspecified Hodgkin lymphoma type, unspecified body region ([facility]-HCC)Start: 06-03-2024 End: 58-57-7574Vgqrheqhernzj procedureAngenoemi ClarkeOpelousas General Hospital OncologyStart: 06-02-2024 End: 70-59-1873Zakcsxbdsgqyy procedureCandakirsty Reyes RNBaton Rouge General [facility] Center OncologyStart: 06-02-2024 End: 67-65-7743Tnhcem pelvic examinationPfo 1DoroPleasant Valley Hospital OncologyComment on above:Screening for prostate cancer (Primary Dx); 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)Start: 06-02-2024 End: 47-54-4881Rxbbxa outpatient visit 40 Edin Prado MD Work Phone: Neela Nelson [facility] Medical OncologyComment on above: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)Start: 06-02-2024 End: 29-04-5760gkacxczgrtEgt Infusion Chair 1DoroPleasant Valley Hospital OncologyStart: 05-31-2024 End: 72-83-7788Gmnjxf Candido Mas MD Work Phone: [facility] CI ENTStart: 05-31-2024 End: 76-19-1789Knovyg flowsheetQuin Mas MD Work Phone: noms CI ENTStart: 05-31-2024 End: 96-54-5548Ujbotb outpatient visit 15 minutesQuin Mas MD Work Phone: noms CI ENTComment on above:Recurrent epistaxis (Primary Dx)Start: 05-31-2024 End: 12-38-7353ulaczuywibMWAHKN H TIMMISNot AvailableStart: 05-27-2024 End: 79-12-2046xrnzzlpwdiGDFGJPremier Health Miami [facility] Southtart: 05-25-2024 End: 49-95-8373hxvaumbaqdMAINHOMercy Health Defiance Hospital Start: 05-04-2024 End: 71-12-0964Jisewolhgnvwr procedureHalltown Amanda Jackman [facility] - Medical OncologyStart: 04-28-2024 End: 58-95-7288Mlzrkf OnlyNovant Health Thomasville Medical Centerdelphine Jackman [facility] - Medical OncologyComment on above:Frequent nosebleeds (Primary Dx)Start: 04-27-2024 End: 46-50-7217Jwophq flowsheetQuin Mas MD Work Phone: noms CI ENTStart: 04-27-2024 End: 02-97-0172Wanyqx flowsBlanca Mas MD Work Phone: NOTQ CI ENTStart: 04-27-2024 End: 72-29-2269Qansyo outpatient visit 25 minutesQuin Mas MD Work Phone: noms CI ENTComment on above:Recurrent epistaxis (Primary Dx); Anticoagulated; Chronic rhinitisStart: 04-27-2024 End: 93-34-2190ulbputgpvxZPIOSS H TIMMISNot AvailableStart: 04-25-2024 End: 80-75-0158Byqzjiond encounterQuin Mas MD Work Phone: noms CI ENTStart: 04-22-2024 End: 26-43-6936Xxlpuozok encounterHiamber Mas MD Work Phone: noms CI ENTComment on above:Epistaxis (Nose Bleed) Start: 04-22-2024 End: 74-20-0150Rdghrjjbj department patient visitJohn ParenteFacility:FTMCStart: 84-05-4896epkdfubftmMPBGUniversity Hospitals Cleveland Medical Centertart: 04-07-2024 End: 22-91-4425Bbqqbw outpatient visit 25 minutesWallace Prado MD Work Phone: [facility] - Medical OncologyComment on above:Hodgkin lymphoma, unspecified Hodgkin lymphoma type, unspecified body region (CMS-HCC) (Primary Dx); 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 RossFacility:[facility] BellevueStart: 03-10-2024 End: 83-04-3200djfhnpvejsWFHEX N XIAProMedica Burdett HospitalStart: 03-09-2024 End: 20-16-5707eroftcogoeSHDUTD E ROSSProMedica Ventura County Medical Centertart: 03-04-2024 End: 08-30-8311Lpkgzv outpatient visit 40 minutesWallace Prado MD Work Phone: Neela Nelson [facility] OncologyComment on above:Hodgkin lymphoma, unspecified Hodgkin lymphoma type, unspecified body region (CMS-HCC) (Primary Dx)Start: 03-04-2024 End: 48-66-6357Dquztk Roseanne Jackman [facility] - Medical OncologyComment on above:Hodgkin lymphoma of intrapelvic lymph nodes, unspecified Hodgkin lymphoma type (CMS-HCC) (Primary Dx); Bone lesionStart: 02-22-2024 End: 67-68-7067slwszhkkqmJRBUVC [facility] Start: 02-22-2024 End: 63-46-0304Mduede Candido Mas MD Work Phone: noms ENT [facility] HOSPITALKStart: 02-22-2024 End: 49-35-6599Yymtxb Candido Mas MD Work Phone: noms E[facility]art: 02-22-2024 End: 15-87-8290bpzivijzpmLFUDQS H TIMMISNot AvailableStart: 02-22-2024 End: 69-62-9438Lxsgyf outpatient new 45 minutesQuin Mas MD Work Phone: noms ENT [facility] HOSPITALomment on above:Internal nasal lesion (Primary Dx); Anticoagulated; Recurrent epistaxisStart: 02-19-2024 End: 46-98-7607scmohcktawKNJJUPremier Health [facility] Hospital Southtart: 02-14-2024 End: 24-06-5206Itgmxrwbv department patient visitSKettering Healthtart: 02-11-2024 End: 37-23-7017Okosdt pelvic examinationGala Douglasslesia Nelson [facility] - Medical OncologyComment on above: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 ([facility]-HCC) (Primary Dx)Start: 02-11-2024 End: 21-96-3786ctagssckzzXyp Infusion Chair Sherine Nelson [facility] - Medical OncologyStart: 02-09-2024 End: 92-20-8435Bzqvksmbgmral procedureElizabeth [facility]on [facility] Medical OncologyStart: 02-09-2024 End: 79-77-7822tqcrqbivzzWMDJHPremier Health Miami Valley Hospital Southtart: 02-04-2024 End: 55-85-4998fclypohfgqYS Antoine HobbsFacility:[facility] BellevueStart: 01-28-2024 End: 25-68-9215Thhymu pelvic examinationPfo felipe Nelson [facility] OncologyComment on above: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)Start: 01-28-2024 End: 91-50-5283gtfgprxxgdXiz Infusion Bed 1Dfelipe [facility] OncologyStart: 01-26-2024 End: 07-56-8436tejsnmewjhSEBTHKaiser Foundation Hospitaltart: 01-18-2024 End: 39-71-9808Howzxirlseagg procedureCandakirsty Calrkedeshawn [facility] OncologyStart: 01-15-2024 End: 03-59-9736Qirtldwos encounterPamikael Goodenjasmeet [facility] OncologyStart: 01-15-2024 End: 56-06-8292jpejtdsdhjWlg Infusion Bed 1Dfelipe [facility] OncologyStart: 01-15-2024 End: 52-25-7617Tatxtu pelvic examinationPfo 1DNew [facility] OncologyComment on above: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)Start: 01-14-2024 End: 92-47-8649Qmyeortozgccx procedureFrank Arellanodeuar [facility] OncologyStart: 01-14-2024 End: 19-76-4347Sxtylv outpatient visit 25 Edin Prado MD Work Phone: [facility] OncologyComment on above:Hodgkin lymphoma, unspecified Hodgkin lymphoma type, unspecified body region (CMS-HCC) (Primary Dx); 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)Start: 2023 End: 00-02-7403pvppvuassbSzx Infusion Bed 1Dfelipe [facility] OncologyStart: 2023 End: 28-01-1721Bfmege pelvic examinationPfo [address] [place] [address] OncologyComment on above: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)Start: 12-17-2023 End: 21-95-0078xyyuwsrvveBul Infusion Bed 1Dfelipe [facility] OncologyStart: 12-17-2023 End: 24-02-6409Rjceef pelvic examinationGala Tiffluz marina JAYfelipe [facility] OncologyComment on above: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)Start: 12-03-2023 End: 74-84-7741Yylczjonmbymi procedureCandakirsty Clarkedeshawn [facility] OncologyStart: 12-03-2023 End: 11-86-2752riambxrvvtOcw Infusion Chair 4Dfelipe [facility] OncologyStart: 12-03-2023 End: 53-08-0171Givrec pelvic examinationPfo 4DNew [facility] OncologyComment on above: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)Start: 12-03-2023 End: 60-50-8010Htbbqo outpatient visit 40 minutesWallace Prado MD Work Phone: [facility] OncologyComment on above:Hodgkin lymphoma, unspecified Hodgkin lymphoma type, unspecified body region (CMS-HCC) (Primary Dx)Start: 11-19-2023 End: 15-30-8238Umohwi WorkGala EISENBERGChandrakant [facility] OncologyComment on above: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)Start: 11-05-2023 End: 74-08-1766Yxkaal WorkGala EISENBERGChandrakant [facility] OncologyComment on above: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)Start: 10-22-2023 End: 65-02-0979Gyryvjfgrqhsx procedureCancristal Clarkedeshawn [facility] OncologyStart: 10-22-2023 End: 36-15-7467dbgprilamfPvd Infusion Chair 4Dfelipe [facility] OncologyStart: 10-22-2023 End: 81-10-7774Knigmz pelvic examinationPfo 4Dfelipe [facility] OncologyComment on above: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 RossFacility:[facility] BellevueStart: 10-14-2023 End: 57-89-5627NxbeslOfuimoKatty Clarkedeshawn [facility] OncologyStart: 10-13-2023 End: 15-89-4285equqowpcoqHP Samuel E. RossFacility:[facility] BellevueStart: 10-08-2023 End: 71-19-6987Sihmypbdkmyzh procedureNahomy Patel [facility] Oncology - Radiation OncologyStart: 10-07-2023 End: 41-85-4947Yoqksudwzfbsm procedureNahomy Clarkedeshawn [facility] Medical OncologyStart: 10-02-2023 End: 95-81-4934ybqtwawtcmFawzejm Burney [facility] [address] Start: 10-02-2023 End: 66-58-4679Uqbrcmasz encounterDolores NewmanProMedica Call Center - Huma RdComment on above:DiarrheaStart: 09-30-2023 End: 44-27-8465sqfwcmutuwFhtdnghs Casimiro [facility] [address] Start: 09-24-2023 End: 08-85-0598oqnjhlawmbCgv Infusion Bed 1Dfelipe [facility] Medical OncologyStart: 09-24-2023 End: 25-21-9810Qemkvo pelvic examinationPfo 1DNew [facility] OncologyComment on above: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)Start: 09-23-2023 End: 22-33-6568Kolfcf Shanda Prado MD Work Phone: [facility] Start: 09-11-2023 End: 47-95-7768znvebwhvloVI Antoine HobbsAshleycility:CD:[id number]: 09-10-2023 End: 20-97-8244Neenlaqzlottg procedureNahomy Patel RNBayne Jones [facility] OncologyStart: 09-10-2023 End: 34-67-0002tmaijxnxqqCbu Infusion Chair 2DNew [facility] OncologyStart: 09-10-2023 End: 85-54-4151Sucbzx pelvic examinationPfo 2DNew [facility] OncologyComment on above: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)Start: 09-10-2023 End: 65-30-9638Vfumyf outpatient visit 40 Edin Prado MD Work Phone: DoBay[facility] OncologyComment on above: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)Start: 09-04-2023 End: 29-51-2436Grmyncrqovegh procedureFrank Morley RNDorotOpelousas General Hospital OncologyStart: 08-27-2023 End: 85-93-0159Fsrmadyalhbcb procedureCancristal Reyes RNDorotOpelousas General Hospital OncologyStart: 08-27-2023 End: 48-42-1699uchtzmokwlUkj Infusion Chair 2DNew [facility] OncologyStart: 08-27-2023 End: 06-87-1875Wakodf pelvic examinationPfo 2DNew [facility] OncologyComment on above: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); Hodgkin lymphoma of intrapelvic lymph nodes, unspecified Hodgkin lymphoma type (CMS-HCC)Start: 08-27-2023 End: 82-36-7885Tmscaq outpatient visit 40 minutesAlysa THOMPSON Work Phone: [facility] OncologyComment on above: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 (CMS-HCC) (Primary Dx)Start: 08-14-2023 End: 29-49-7603Qaasyz WorkMarjuventino Matthew LSWDNew Orleans East Hospital OncologyStart: 08-13-2023 End: 04-57-8003Cgjwpf OnlyDwight Bahena [facility] Work Phone: dNew [facility] OncologyComment on above:Hodgkin lymphoma of intrapelvic lymph nodes, unspecified Hodgkin lymphoma type (CMS-HCC) (Primary Dx); 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)Hodgkin lymphoma of intrapelvic lymph nodes, unspecified Hodgkin lymphoma type (CMS-HCC) (Primary Dx); Diarrhea of presumed infectious originStart: 08-13-2023 End: 17-51-1056Qwbzfy outpatient visit 40 minutesWallace Prado MD Work Phone: [facility] OncologyComment on above: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)Start: 08-07-2023 End: 68-35-2540uxppsyfupgQaf Infusion Chair 1DNew [facility] OncologyStart: 08-07-2023 End: 21-61-4147Zsnhfo pelvic examinationPfo 1DNew [facility] OncologyComment on above:Hodgkin lymphoma of intrapelvic lymph nodes, unspecified Hodgkin lymphoma type (CMS-HCC) (Primary Dx)Start: 08-06-2023 End: 04-37-0616Oycxlfxcrxxsv Yeny Patel RNDoBayne Jones Army [facility] Hospital OncologyStart: 08-05-2023 End: 39-67-9278swvmhoquobHIUUD N XIAPPomerene Hospital HospitalStart: 08-04-2023 End: 73-74-6811eyxgtgqmikUR Antoine HobbsFacility:[facility] BellevueStart: 07-31-2023 End: 91-04-4794Zcnsxo pelvic examinationPfo 3Dcrossroads regional medical centerlesia [facility] OncologyComment on above: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)Start: 07-31-2023 End: 53-20-5736fanbhucromFhy Infusion Chair 5DNew [facility] OncologyStart: 07-30-2023 End: 72-17-0078Ytgtcopnsdpbi procedureNahomy Clarkedeshawn [facility] OncologyStart: 07-29-2023 End: 63-32-3661Ymutcu Roseanne Arellanoeduar [facility] OncologyStart: 07-28-2023 End: 78-20-8637Gnvkfh Yuniorwi Amanda ClarkeMyMichigan Medical Center [facility] Medical OncologyComment on above: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)Start: 07-24-2023 End: 68-93-7342Ndkcoo Shanda Prado MD Work Phone: [facility] OncologyComment on above:Lymphoma, unspecified body region, unspecified lymphoma type (CMS-HCC) (Primary Dx); 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) Start: 07-22-2023 End: 66-59-1904Gsnfsfklu encounterBeSaint Francis Medical Center Physicians Hematology/Oncology AssociatesComment on above:Results (Updated that final results are not back from [facility] yet, )Start: 07-21-2023 End: 14-60-7726Jxazknhsdmpjh procedureNahomy Arellanoeduar [facility] OncologyComment on above:Lymphoma, unspecified body region, unspecified lymphoma type (CMS-HCC) (Primary Dx)Start: 07-21-2023 End: 59-32-2875ylkradhaovIZOROShelby Memorial Hospitaltart: 07-17-2023 End: 61-37-6818Olmyguloe encounterPamikael [facility] - Medical OncologyStart: 07-17-2023 End: 29-33-1000Nzhfwcviip and management of inpatientPAJ LUIS Sargentedica Terrell HospitalStart: 07-16-2023 End: 87-26-6626Vyahaq OnlyGala Trotter 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 Work Phone: [facility] Comment on above:Lymphoma, unspecified body region, unspecified lymphoma type ([facility]-HCC) (Primary Dx)Start: 07-13-2023 End: 00-12-2779Zfiobjltq encounterBeprince CoreaUniversity of [facility] Medical [facility] Start: 07-10-2023 End: 64-02-7129Vltmsbpjcj and management of inpatientQUNFANG LIProMedica Braggs HospitalStart: 47-57-4124zxzwsfoqamFOXARNQueens [facility] Center [facility] Start: 24-37-8487boloshcvauMRNBVPQueens Hospital Center Ambulatory PPGStart: 07-08-2023 End: 39-05-2692Yecwgmsddk and management of inpatientRUPESPankaj BARKERTELProMedica Braggs HospitalStart: 07-06-2023 End: 41-20-8669Kovvcflmcd and management of inpatientGALA CHENEYEProMedica Braggs HospitalStart: 07-04-2023 End: 56-55-7960Zeekhdjgns and management of inpatientIMAD Mag HARIRIProMedica Braggs HospitalStart: 07-03-2023 End: 59-14-4407Qbgyqfhens and management of inpatientEMILE KLADAProMedica Braggs HospitalStart: 07-02-2023 End: 06-65-2439Murwueslub and management of inpatientBRYANNA LAURO JAYProMedica Braggs HospitalStart: 63-30-5046fprsyvgfzaMI Samuel RossFacility:[facility] Start: 06-30-2023 End: 42-73-5329Ufcpwgiavy and management of inpatientAHMED KING ROSENHYELProMedica Braggs HospitalStart: 06-29-2023 End: 66-14-7708Fwtxoslwph and management of inpatientSSID Hathaway ELSTONProMedica Braggs HospitalStart: 06-27-2023 End: 75-65-7936Lamavweueh and management of inpatientFARAZ BADARProMedica Braggs HospitalStart: 06-26-2023 End: 14-80-3942Erdnmtwnva and management of inpatientAMNA M AL-TKRITProMedica Braggs HospitalStart: 06-26-2023 End: 82-46-5007Nibbhtyxtv and management of inpatientFADI A SAFIProMedica Braggs HospitalStart: 06-25-2023 End: 51-80-2025fimsymmgwnVDELFI E ROSSOhioHealth Grove City Methodist Hospitalca Hospital Ambulatory PPGStart: 06-25-2023 End: 57-19-6243Ruemrytoan and management of inpatientAVIJIT DASProMedica Braggs HospitalStart: 06-04-2023 End: 76-84-2593Xcx Drop offSsharon Hobbs [facility] Start: 06-04-2023 End: 60-36-9923tnijtfknmkZI Antoine HobbsFacility:FTMCStart: 02-05-2022 End: 11-32-6348bltakrgmnbIARDZWN BOESFacility:X4Zoaqz: 09-20-2020 End: 79-61-0405Navleja encounter procedureM Felipe Frank Work Phone: [phone]-Jupajkfif CheckStart: 05-19-2017 End: 21-64-0134GxzbjrwtyeOLBKCEV PHYSICIANFacility:UTMCStart: 04-29-2017 End: 73-86-4336GefokrndyhTZBAZCAT UNKNOWNFacility:UTMCStart: 04-16-2017 End: 50-74-2623IvvomyigxcQZOJTQUD SELFFacility:UTMCStart: 01-28-2017 End: 93-04-5383GbdghhpqmuFRYNKTWY SELFFacility:UTMCStart: 12-12-2016 End: 01-79-3747Tqpfilrzwl and management of inpatientLAURA BERNARDO LUCAS Facility:[facility] Procedures DateProcedureProcedure DetailPerforming ClinicianStart: 34-87-9569Iwpbmqemnmedy metabolic panelChanatalya Prado MD Work Phone: Start: 26-11-5582Prtjkldvvsubq metabolic panelChanatalya Prado MD Work Phone: Start: 02-33-4396Obmniblcwdepx metabolic panelChanatalya Prado MD Work Phone: Start: 29-79-9347Oabkjmucaetey metabolic panelWallace Prado MD Work Phone: Start: 59-59-7507Nizkydfopqbmh metabolic panelChanatalya Prado MD Work Phone: Start: 09-52-8178Dzrutbfhozxqm metabolic panelChanatalya Praod MD Work Phone: Start: 24-98-0797Xkgtbpbceqpnp metabolic panelChanatalya Prado MD Work Phone: Start: 16-59-3188Gibpprgdaxtqv metabolic panelChang Luz Marina Prado MD Work Phone: Start: 89-29-3339Drozpfbkwmkit metabolic panelChanatalya Prado MD Work Phone: Start: 45-36-1451Qxaljcpckwnze metabolic panelChanatalya Prado MD Work Phone: Start: 07-07-2024H/O splenectomyHistory of splenectomy Wallace Prado MD Work Phone: Start: 69-05-0885BkjwxzwnuzmkIinvqyaghtpjRTBYU XIA Start: 48-83-0561Izvthklpdikpd metabolic panelChanatalya Prado MD Work Phone: Start: 18-81-3758Vicxly-up visitFollow-upWLALACE PRADO Start: 74-82-0637Upkqz i surg pathology gross examination onlyNot In System Ref ProvStart: 04-48-7327Flbhpxl of coronary artery bypass graftingHistory of coronary artery bypass surgeryHiamber Mas MD Work Phone: Start: 38-44-9174XgkzcudfcrqZdbtey Ross Start: 42-29-1328PNQBTC 1 COR ART FROM AORTA WITH AUTOL VN, OPEN APPROACHTHOMAS A SCHWANNStart: 52-08-0448BHWSHK 1 COR ART FROM L INT MAMMARY, OPEN APPROACHTHOMAS A SCHWANNStart: 24-27-9662QPOSNH 3 COR ART FROM AORTA WITH AUTOL ART, OPEN APPROACHTHOMAS A SCHWANNStart: 09-32-0763GLDICBCF OF LEFT RADIAL ARTERY, OPEN APPROACHTHOMAS A SCHWANNStart: 52-03-2410KDVVYJKT OF LEFT SAPHENOUS VEIN, PERC ENDO APPROACHTHOMAS A SCHWANNStart: 53-70-7157HYTGPYGN OF RIGHT RADIAL ARTERY, OPEN APPROACHTHOMAS A SCHWANNStart: 10-97-6372PCRBAI INFUSION DEV IN R INT JUGULAR VEIN, PERCALI M HASSANStart: 04-77-2621VBCDBXJCT OF INFUSION DEV INTO L FEMOR VEIN, PERC APPROACHALI M HASSANStart: 12-19-2016 MEASURE OF ARTERIAL SATURATION, PERIPHERAL, PERC APPROACHLAURA AM MURPHYStart: 29-13-2267Uoykgaeaqwj of Cardiac Output, ContinuousTHOMAS A SCHWANNStart: 80-89-5721SDYUDBLPORMKDLG OF RIGHT AND LEFT HEART, TRANSESOPHAGEALALI M RAFAEL Start: 71-19-4055Yheloxpytqpawcj of Right Jugular Veins, GuidanceALI M RAFAEL Start: 46-69-1335FMOPY RADIOGRAPHY OF MULT COR ART USING OTH CONTRASTRAALEX GUPTAStart: 81-29-6459AXBJFENCH OF MONITOR DEV INTO R PULM ART, PERC APPROACH FRANCISCO V MOUKARBELStart: 41-03-3933IARLILH OF CARDIAC SAMPL \T\ PRESSURE, R HEART, PERC APPROACHGEORGE V MOUKARBELCholecystectomySajoe Yfn Comment on above:2005Coronary artery bypass grafts x 5 Antoine Hobbs History of coronary artery bypass graftingHx of CABG Antoine Hobbs Splenectomyjoe Yfn Comment on above:1982 Plan of Treatment DateCare ActivityDetailAuthorStart: 52-35-0002Gjvaz BMI ScreeningAdult BMI ScreeningFairfield Medical Center SystemStart: 10-78-1815Pukqg BMI ScreeningAdult BMI ScreeningProMedica Health SystemStart: 18-49-8394Gsmp Risk ScreeningFall Risk ScreeningProMedica Health SystemStart: 35-23-3438Oojkmfy ScreeningTobacco ScreeningProMedica Health SystemStart: 41-59-3486Gbljp BMI ScreeningAdult BMI ScreeningProMedica Health SystemStart: 38-83-6718Gtfgj BMI ScreeningAdult BMI ScreeningProMedica Health SystemStart: 51-91-6144Nxpc Risk ScreeningFall Risk ScreeningProMedica Health SystemStart: 70-00-2026Ndqzt BMI ScreeningAdult BMI ScreeningProMedica Health SystemStart: 45-57-2712Sapyooe ScreeningTobacco ScreeningProMedica Health SystemStart: 56-62-9347Wooxu BMI ScreeningAdult BMI ScreeningProMedica Health SystemStart: 02-62-3517Neaza BMI ScreeningAdult BMI ScreeningProMedica Health SystemStart: 49-13-4083Ckdfkrc ScreeningTobacco ScreeningProMedica Health SystemStart: 76-01-4779Bkywj BMI ScreeningAdult BMI ScreeningProMedica Health SystemStart: 52-92-5268Fndo Risk ScreeningFall Risk ScreeningProMedica Health SystemStart: 91-62-7314Rwuhavs ScreeningTobacco ScreeningProMedica Health SystemStart: 74-50-0972Swjdp BMI ScreeningAdult BMI ScreeningProMedica Health SystemStart: 42-14-4733Vzxlxfa ScreeningTobacco ScreeningProMedica Health SystemStart: 73-83-5494Ilxht BMI ScreeningAdult BMI ScreeningProMedica Health SystemStart: 84-16-9972Yrik Risk ScreeningFall Risk ScreeningProMedica Health SystemStart: 93-11-0466Hbkzzfd ScreeningTobacco ScreeningProMedica Health SystemStart: 63-12-2644Whqhg BMI ScreeningAdult BMI ScreeningProMedica Health SystemStart: 61-24-6549Cicwhmj ScreeningTobacco ScreeningProMedica Health SystemStart: 86-76-5393Rzubr BMI ScreeningAdult BMI ScreeningProMedica Health SystemStart: 85-79-6762Peonljy ScreeningTobacco ScreeningProMedica Health SystemStart: 10-40-5129Ulxat BMI ScreeningAdult BMI ScreeningProMedica Health SystemStart: 27-29-7393Hoxlwuh ScreeningTobacco ScreeningProMedica Health SystemStart: 57-93-9431Mlviu BMI ScreeningAdult BMI ScreeningProMedica Health SystemStart: 97-46-3761Vbmeuvs ScreeningTobacco ScreeningProMedica Health SystemStart: 65-92-4617Xnecm BMI ScreeningAdult BMI ScreeningProMedica Health SystemStart: 99-87-6870Hkbt Risk ScreeningFall Risk ScreeningProMedica Health SystemStart: 77-81-5699Dsixgdv ScreeningTobacco ScreeningProMedica Health SystemStart: 32-98-6544Bcjsx BMI ScreeningAdult BMI ScreeningProMedica Health SystemStart: 48-97-9465Eremitl ScreeningTobacco ScreeningProMedica Health SystemStart: 28-52-1533Uulft BMI ScreeningAdult BMI ScreeningProMedica Health SystemStart: 01-07-4120Dxybnrb ScreeningTobacco ScreeningProMedica Health SystemStart: 02-26-6784Dmaqo BMI ScreeningAdult BMI ScreeningProMedica Health SystemStart: 57-01-1155Stejmrx ScreeningTobacco ScreeningProMedica Health SystemStart: 43-68-5888Xytyv BMI ScreeningAdult BMI ScreeningProMedica Health SystemStart: 67-49-1377Pocbxod ScreeningTobacco ScreeningProMedica Health SystemStart: 58-63-6894Puahv BMI ScreeningAdult BMI ScreeningProMedica Health SystemStart: 73-32-4469Tesqcxn ScreeningTobacco ScreeningProMedica Health SystemStart: 30-12-7196Txwgl BMI ScreeningAdult BMI ScreeningProMedica Health SystemStart: 35-63-9573Kebn Risk ScreeningFall Risk ScreeningProMedica Health SystemStart: 05-61-4884Fabjqys ScreeningTobacco ScreeningProMedica Health SystemStart: 56-12-6367Wpron BMI ScreeningAdult BMI ScreeningProMedica Health SystemStart: 36-79-4012Jbmqs BMI ScreeningAdult BMI ScreeningProMedica Health SystemStart: 28-30-4334Tiiqlii ScreeningTobacco ScreeningProMedica Health SystemStart: 04-13-2025 End: 10-70-5782Bcexzjz encounter itokvhaul91/15/2026 2:00 PM EST Office Visit [facility] [address] [place], [place] [phone] Lynnette Abbott MD [address], [place], [place] [id number] [facility] MedicineStart: 80-37-1120Wzvko BMI ScreeningAdult BMI ScreeningProMercer County Community Hospitalca Health SystemStart: 04-88-9421Obtpdqh ScreeningTobacco ScreeningProMercer County Community Hospitalca Health SystemStart: 04-06-2025 End: 83-54-1876Icklpul encounter iomapzerf66/08/2026 11:00 AM EST Office Visit Neela Lennon [facility] - Medical Oncology [address] [place] [phone] Wallace Prado MD [address] 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 Neela Lennon [facility] - Pet Imaging Start: 03-13-2025 End: 67-97-6599Lkfuwyic for biopsy of Bone marrowIR biopsy and aspiration bone marrow single or multiple sites Imaging Routine 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) Expected: 03/13/2025, Expires: 12/08/2025ProBellevue HospitalComment on above:Expected: 03/13/2025, Expires: 12/08/2025Start: 03-13-2025 End: 25-20-3994Mdqjhihb PathologySurgical Pathology Pathology and Cytology Routine 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 [address] [place] [address] [phone] (Work) [facility] Interventional RadiologyStart: 38-03-7222Aksv Risk ScreeningFall Risk Screening [facility] SystemStart: 00-81-6331Mongv BMI ScreeningAdult BMI Screening [facility] SystemStart: 98-83-5620Wgbyu BMI ScreeningAdult BMI Screening [facility] SystemStart: 64-49-3015Jydx Risk ScreeningFall Risk Screening [facility] Centertart: 34-39-3822Otzkemr ScreeningTobacco Screening [facility] SystemStart: 60-36-5690Plfxq BMI ScreeningAdult BMI Screening [facility] SystemStart: 01-17-2025 End: 29-84-0138oeqicfunwx52/21/2025 1:30 PM EDT Infusion Neela Lennon [facility] - Medical Oncology [address] [place] [phone] Neela [facility] Medical OncologyStart: 20-58-7588Recof BMI ScreeningAdult BMI ScreeningProCleveland Clinic [facility]on [facility] SystemStart: 62-28-5978Meaga BMI ScreeningAdult BMI ScreeningProCleveland Clinic [facility] SystemStart: 20-00-5440Mzamswo ScreeningTobacco ScreeningProCleveland Clinic [facility] SystemStart: 33-29-1263Wjptd BMI ScreeningAdult BMI ScreeningFairfield Medical Center SystemStart: 07-67-1178Zxjfidp ScreeningTobacco ScreeningFairfield Medical Center SystemStart: 12-09-2024 End: 81-13-8376cjukvxqsnj56/12/2025 3:00 PM EDT Infusion Neela Lennon [facility] - Medical Oncology [address] [place] [phone] Neela Lennon [facility] Medical OncologyStart: 12-08-2024 End: 40-25-4872eskpcdhxxe23/11/2025 11:30 AM EDT Infusion Neela Lennon [facility] - Medical Oncology [address] [place] [phone] Neela Lennon [facility] Medical OncologyStart: 12-08-2024 End: 26-04-5137Hpdvmlx encounter cbwalnjlk98/11/2025 11:15 AM EDT Office Visit Neela Lennon [facility] - Medical Oncology [address] [place] [phone] Wallace Prado MD [address] [place] [address] [address] [place] [address] Neela Lennon [facility] - Medical OncologyStart: 12-07-2024 End: 13-83-5129mbetorhitw51/10/2025 11:00 AM EDT Infusion Neelainocente Lennon [facility] - Medical Oncology [address] [place] [phone] Neela Lennon [facility] Medical OncologyStart: 03-16-9559Mkjle BMI ScreeningAdult BMI ScreeningProC[facility] SystemStart: 85-24-1127TGRZO-19 Vaccine (8 - Pfizer risk season)COVID-19 Vaccine (8 - Pfizer risk season)[facility] SystemStart: 11-43-3997Syhlexzax vaccinationInfluenza VaccineProC[facility] SystemStart: 11-25-2024 End: 89-94-8573vxlkitxbwz52/29/2025 2:30 PM EDT Infusion Neela Lennon [facility] - Medical Oncology [address] [place] [phone] Neela Lennon [facility] Medical OncologyStart: 11-24-2024 End: 52-88-1954jbuebunbws81/28/2025 8:30 AM EDT Infusion Neela Lennon [facility] Medical Oncology [address] [place] [phone] Neela Lennon [facility] OncologyStart: 11-23-2024 End: 88-96-9377twskswcyxb62/27/2025 11:00 AM EDT Infusion Neelainocente Lennon [facility] Medical Oncology [address] [place] [phone] Neela L Saji [facility] Medical OncologyStart: 87-06-8818Kydzpig ScreeningTobacco ScreeningFairfield Medical Center SystemStart: 11-11-2024 End: 27-38-8564yuavtnuppv89/15/2025 2:00 PM EDT Infusion Neelainocente Moreaun [facility] - Medical Oncology [address] [place] [phone] Neela L Saji [facility] Medical OncologyStart: 11-10-2024 End: 38-76-0292uextftlagz72/14/2025 10:00 AM EDT Infusion Neela L Saji [facility] - Medical Oncology [address] [place] [phone] Neela Lennon [facility] - Medical OncologyStart: 11-09-2024 End: 64-33-4485isuciikvqo04/13/2025 11:30 AM EDT Infusion Neela Lennon [facility] - Medical Oncology [address] [place] [phone] Neela Lennon [facility] Medical OncologyStart: 73-69-7202Izuko BMI ScreeningAdult BMI ScreeningProCleveland Clinic [facility] SystemStart: 37-81-6923Iuhomdm ScreeningTobacco ScreeningProC[facility] Clinic [facility] SystemStart: 11-04-2024 End: 29-18-6377Vkjjpuf encounter bfvijfovm60/08/2025 8:45 AM EDT Office Visit Neela Lennon [facility] - Medical Oncology [address] [place] [phone] Wallace Prado MD [address] [place] [address] Neela Lennon [facility] Medical OncologyStart: 10-28-2024 End: 79-18-1555prsonrrzab92/01/2025 12:00 PM EDT Infusion Neela Lennon [facility] Oncology [address] [place] [phone] Neela Lennon [facility] Medical OncologyStart: 10-27-2024 End: 96-17-0399zelmkzwhim59/31/2025 9:00 AM EDT Infusion Neela Lennon [facility] - Medical Oncology [address] [place] [phone] Neela Lennon [facility] - Medical OncologyStart: 10-26-2024 End: 09-85-4846hhdkuzszxk57/30/2025 11:00 AM EDT Infusion Neela Lennon [facility] - Medical Oncology [address] [place] [phone] Neela Lennon [facility] Medical OncologyStart: 34-98-8379Vxzfj BMI ScreeningAdult BMI ScreeningProC[facility] Clinic [facility] SystemStart: 04-40-3271Uqsvxem ScreeningTobacco ScreeningFairfield Medical Center SystemStart: 10-14-2024 End: 76-50-0136jnstuhmnzt82/18/2025 12:00 PM EDT Infusion Neela Lennon [facility] - Medical Oncology [address] [place] [address] Neela Lennon [facility] - Medical OncologyStart: 10-13-2024 End: 68-26-3666ufebjvmtkn06/17/2025 9:00 AM EDT Infusion Neela Lennon [facility] - Medical Oncology [address] [place] [address] Neela Lennon [facility] Medical OncologyStart: 10-12-2024 End: 65-38-7823sxxybuvhzc02/16/2025 11:30 AM EDT Infusion Neela Lennon [facility] - Medical Oncology [address] [place] [phone] Neela Lennon [facility] Medical OncologyStart: 81-29-6312Nwvtc BMI ScreeningAdult BMI ScreeningFairfield Medical Center SystemStart: 07-46-6729Nvsmd BMI ScreeningAdult BMI ScreeningFairfield Medical Center SystemStart: 25-79-0068Rzasw BMI ScreeningAdult BMI ScreeningProC[facility] Clinic [facility] SystemStart: 96-90-9346Vrhsnez ScreeningTobacco ScreeningFairfield Medical Center SystemStart: 09-30-2024 End: 80-48-2169zejvvcumfzMvtdwiu L Kern [facility] - Medical OncologyComment on above:ArrivedStart: 09-29-2024 End: 74-13-9525sqvxqwzcku69/03/2025 8:00 AM EDT Infusion Neela Moreaun [facility] - Medical Oncology [address] [place] [phone] Neela Moreaun [facility] - Medical OncologyStart: 09-28-2024 End: 93-58-6888jmgjulsaig19/02/2025 11:00 AM EDT Infusion Neela L Saji [facility] - [facility] Oncology [address] [place] [phone] Neela Lennon [facility] - Medical OncologyStart: 47-55-4883Awufw BMI ScreeningAdult BMI ScreeningProC[facility] Clinic [facility] SystemStart: 94-63-1368Ncdfrox ScreeningTobacco ScreeningProC[facility] Clinic [facility] SystemStart: 09-16-2024 End: 84-53-4235ojmlohfpik90/20/2025 3:00 PM EDT Infusion Neela Lennon [facility] - Medical Oncology [address] [place] [phone] Neela Lennon [facility] - Medical OncologyStart: 09-16-2024 End: 43-95-9562Roaxjhr encounter aroxasgnx12/20/2025 2:45 PM EDT Office Visit Neela Lennon [facility] - Medical Oncology [address] [place] [phone] Wallace Prado MD [facility] [place] [address] Neela Lennon [facility] - Medical OncologyStart: 09-15-2024 End: 01-74-4170cjoysrhsup96/19/2025 11:00 AM EDT Infusion Neela Lennon [facility] - Medical Oncology [address] [place] [phone] Neela Lennon [facility] - Medical OncologyStart: 09-13-2024 End: 87-82-2322hwudyyszmg95/17/2025 11:00 AM EDT Infusion Neela Lennon [facility] - Medical Oncology [address] [place] [phone] Neela Lennon [facility] - Medical OncologyStart: 98-84-5828Dbmpm BMI ScreeningAdult BMI ScreeningProC[facility] Clinic [facility] SystemStart: 09-09-2024 End: 49-76-6929Hfhbkao encounter /13/2025 9:00 AM EDT Appointment [facility] Neelainocente Lennon [facility] - Pet Imaging [address] [place] [phone] RdpUkatwj [facility] Start: 09-02-2024 End: 67-00-3370ngmsncmmqs09/06/2025 1:00 PM EDT Infusion Neela Lennon [facility] - Medical Oncology [address] [place] [address] Neela Lennon [facility] Medical OncologyStart: 09-01-2024 End: 28-51-6092txamkehhym96/05/2025 9:00 AM EDT Infusion Neela Lennon [facility] - Medical Oncology [address] [place] [phone] Neela Lennon [facility] - Medical OncologyStart: 08-30-2024 End: 84-93-9234ldwtwxudpf67/03/2025 10:00 AM EDT Infusion Neela Lennon [facility] - Medical Oncology [address] [place] [phone] Neela Lennon [facility] Medical OncologyStart: 12-25-4365Sdeuc BMI ScreeningAdult BMI ScreeningAtrium Health Carolinas Medical Centertart: 08-19-2024 End: 57-39-7073fqxmunyxqx06/23/2025 4:00 PM EDT Infusion Neela Lennon [facility] - Medical Oncology [address] [place] [address] Neela Lennon [facility] Medical OncologyStart: 08-18-2024 End: 85-51-5877nzbskazhzj78/22/2025 1:00 PM EDT Infusion Neela Lennon [facility] - Medical Oncology [address] [place] [phone] Neela Lennon [facility] - Medical OncologyStart: 08-18-2024 End: 10-93-1517Hrizuzt encounter fuputqgfo38/22/2025 12:45 PM EDT Office Visit Neela Lennon [facility] - Medical Oncology [address] [place] [phone] Wallace Prado MD [address] [facility] [address] [place], [place] [phone] Neela Lennon [facility] - Medical OncologyStart: 08-16-2024 End: 41-98-2978bberrjnlen31/20/2025 1:30 PM EDT Infusion Neela Lennon [facility] - Medical Oncology [address] [place] [phone] Neela Lennon [facility] Medical OncologyStart: 08-16-2024 End: 61-44-5891rocscoyktt17/20/2025 9:30 AM EDT Infusion Neela Lennon [facility] - Medical Oncology [address] [place] [phone] Neela Lennon [facility] Medical OncologyStart: 01-24-3875Nwmco BMI ScreeningAdult BMI ScreeningProC[facility] Clinic [facility] SystemStart: 90-78-1004Pfbju BMI ScreeningAdult BMI ScreeningProC[facility] SystemStart: 90-54-7571Wbnskxo ScreeningTobacco ScreeningProC[facility] Clinic [facility] SystemStart: 08-05-2024 End: 07-58-5544voprdmwkae41/09/2025 1:30 PM EDT Infusion Neela Lennon [facility] Oncology [address] [place] [address] Neela Lennon [facility] Medical OncologyStart: 92-87-0817Nyimc BMI ScreeningAdult BMI ScreeningProC[facility] SystemStart: 08-04-2024 End: 80-92-6017edoltbfnqd27/08/2025 10:00 AM EDT Infusion Neela Lennon [facility] - Medical Oncology [address] [place] [phone] Neela Lennon [facility] Medical OncologyStart: 08-04-2024 End: 18-61-9768Rbhrknj encounter mxcrldgoo09/08/2025 9:30 AM EDT Office Visit Neela Lennon [facility] - Medical Oncology [address] [place] [phone] Wallace Prado MD [address] [place] [address] [address] [place], [place] [phone] Neela Lennon [facility] Medical OncologyStart: 08-02-2024 End: 53-49-3641cugmspgvbe42/06/2025 11:00 AM EDT Infusion Neela Lennon [facility] Oncology [address] [place] [phone] Neela Lennon [facility] Medical OncologyStart: 09-89-2090Unkwx BMI ScreeningAdult BMI ScreeningProC[facility] SystemStart: 07-22-2024 End: 81-80-1344dzxmoivhmw80/25/2025 2:30 PM EDT Infusion Neela Lennon [facility] Medical Oncology [address] [place] [phone] Neela Lennon [facility] Medical OncologyStart: 07-21-2024 End: 15-59-0520uthslcravl66/24/2025 10:30 AM EDT Infusion Neela Lennon [facility] Oncology [address] [place] [phone] Neela Lennon [facility] Medical OncologyStart: 07-21-2024 End: 28-81-7112Cohdgze encounter powhdxldg64/24/2025 10:15 AM EDT Office Visit Neela Lennon [facility] Oncology [address] [place] [phone] Wallace Prado MD [facility] [place] [address] Neela Lennon [facility] Medical OncologyStart: 07-19-2024 End: 75-59-0004dbweflotxq45/22/2025 11:00 AM EDT Infusion Neela Lennon [facility] Oncology [address] [place] [phone] Neela Lennon [facility] Medical OncologyStart: 72-68-7438Jtvvstb ScreeningTobacco ScreeningProC[facility] Clinic [facility] SystemStart: 74-67-0530Jeznl BMI ScreeningAdult BMI ScreeningProC[facility] SystemStart: 07-08-2024 End: 31-06-9586jfypnqvayn15/11/2025 1:00 PM EDT Infusion Neela Lennon [facility] Oncology [facility] [place] [address] Neela Lennon [facility] Medical OncologyStart: 07-07-2024 End: 31-97-7343Rxfg complete W/Strain ImagingEcho complete W/Strain Imaging Echocardiography Routine Hodgkin lymphoma, unspecified Hodgkin lymphoma type, unspecified body region (CMS-HCC) Hodgkin lymphoma of intrapelvic lymph nodes, unspecifiedHodgkin lymphoma type ([facility]-HCC) Encounter for monitoring cardiotoxic drug therapy Expected: 07/07/2024, Expires: 07/07/2025[employer] Work Phone: Comment on above:Expected: 07/07/2024, Expires: 07/07/2025Start: 07-07-2024 End: 36-92-6503fhrsrizukzAlhdfzp L Kern [facility] Medical OncologyStart: 07-07-2024 End: 83-88-5223Frhltcb encounter procedureDoeduar Lennon [facility] OncologyStart: 90-22-4253DLBUQ-19 Vaccine (8 - Pfizer risk season)COVID- 19 Vaccine (8 - Pfizer risk )[facility] [employer] SystemStart: 07-05-2024 End: 01-01-3491ioxrxsncnl87/08/2025 12:00 PM EDT Infusion Neela Lennon [facility] Oncology [address] [place] [address] Neela Lennon [facility] OncologyStart: 06-10-2024 End: 38-94-8826Htqmky of bone marrowBone Marrow Biopsy Procedures Routine 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[facility]-HCC) Expected: 06/10/2024 (Approximate), Expires: 07/11/2024[facility]entin Uzhun SystemComment on above:Expected: 06/10/2024 (Approximate), Expires: 07/11/2024Start: 06-02-2024 End: 73-34-4014Ztvzrrut for percutaneous biopsy of BoneIR superficial percutaneous biopsy bone Imaging Routine Hodgkin lymphoma, unspecified Hodgkin lymphoma type, unspecified body region (CMS-HCC) Bone lesion Expected: 06/02/2024, Expires: 06/02/2025[facility] Work Phone: Comment on above:Expected: 06/02/2024, Expires: 06/02/2025Start: 06-02-2024 End: 80-99-9929Yuchpvf encounter /06/2025 11:15 AM EST Office Visit Ne[facility] - Medical Oncology [address] [place] [phone] Wallace Prado MD [address] [place] [address] [address] [place], [place] [phone] Neela Nelson Man[place] [facility] - Medical OncologyStart: 05-31-2024 End: 35-64-8581Wmsyxoc encounter dlzugyjjp82/04/2025 9:10 AM EST Office Visit [facility] [address] [phone] Quin Mas MD [address] [address] ArrivedNOMS CI ENTComment on above:ArrivedStart: 05-27-2024 End: 69-78-9227MD Skull base to mid-thighPET CT skull to thigh Imaging Routine Hodgkin lymphoma of intrapelvic lymph nodes, unspecified Hodgkin lymphoma type (CMS-HCC) Bone lesion Hodgkin lymphoma, unspecified Hodgkin lymphoma type, unspecified body region (CMS-HCC) 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) Expected: 05/27/2024, Expires: 04/07/2025 [facility] Work Phone: Comment on above:Expected: 05/27/2024, Expires: 04/07/2025Start: 05-27-2024 End: 42-13-4803Igoxrdn encounter etytqsagh54/28/2025 9:00 AM EST Appointment [facility] - [facility] Imaging [address] [place] [address] IyjBkjyuz Neela Lennon [facility] - Pet Imaging Start: 04-27-2024 End: 72-55-6593Ijvzora encounter procedureNOMS CI ENTComment on above:Arrived Start: 04-07-2024 End: 05-31-3093Bodddce encounter wdtdohyhs50/09/2025 1:30 PM EST Office Visit Neela Lennon [facility] - Medical Oncology [address] [place] [phone] Wallace Prado MD [address] [place] [address] Neela Lennon [facility] - Medical OncologyStart: 03-10-2024 End: 31-86-3745Prcafwc encounter fxamuswcj77/12/2024 11:15 AM EST Office Visit [facility] [address] [place] [phone] Lynnette Abbott MD [address] [place] [address] [facility] MedicineStart: 03-04-2024 End: 66-49-6610Qgsgofaa for percutaneous biopsy of BoneIR superficial percutaneous biopsy bone Imaging Routine Hodgkin lymphoma of intrapelvic lymph nodes, unspecified Hodgkin lymphoma type ([facility]-HCC) Bone lesion Expected: 03/04/2024, Expires: 03/04/2025[facility] Work Phone: Comment on above:Expected: 03/04/2024, Expires: 03/04/2025Start: 03-04-2024 End: 32-09-0914Vvkumxk encounter /06/2024 1:30 PM EST Office Visit Neela Lennon [facility] - Medical Oncology [address] [place] [phone] Wallace Prado MD [address] [place] [address] Neela Lennon [facility] Medical OncologyStart: 09-36-2531OOIDJ-19 Vaccine ()COVID-19 Vaccine ()[facility] Centertart: 02-07-2946SKJDF-19 Vaccine ()COVID-19 Vaccine ()[facility] Centertart: 02-11-2024 End: 89-40-9371tpgyymjvsy17/14/2024 10:00 AM EST Infusion Neelainocente Lennon [facility] Oncology [address] [place] [phone] Neelainocente Lennon [facility] Medical OncologyStart: 02-09-2024 End: 37-78-9462szhxylhcqe91/12/2024 10:00 AM EST Support Visit Neelainocente Moreaun [facility] Oncology [address] [place] [phone] Dorotdeshawn Lennon [facility] OncologyStart: 02-07-2024 End: 19-65-2900LY Skull base to mid-thighPET CT skull to thigh Imaging Routine Hodgkin lymphoma, unspecified Hodgkin lymphoma type, unspecified body region (CMS-HCC) 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 (CMS- HCC) 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, unspecified Hodgkin lymphoma type ([facility]-HCC) Expected: 02/07/2024, Expires: 01/13/2025[facility] Work Phone: Comment on above:Expected: 02/07/2024, Expires: 01/13/2025Start: 01-28-2024 End: 43-17-1245vcbxlnqykn76/31/2024 10:00 AM EDT Infusion Neelainocente Lennon [facility]cology [address] [place] [phone] Neelainocente Moreaun [facility] Medical OncologyStart: 01-26-2024 End: 18-79-5764eoywjnebum13/29/2024 9:10 AM EDT Support Visit Neela Lennon [facility] - Medical Oncology [address] [place] [address] Hrsckls L [facility] Medical OncologyStart: 01-15-2024 End: 15-01-6269lxqfeukyda69/18/2024 11:00 AM EDT Infusion Neela Lennon [facility] [address] [place] [phone] Neela [facility]on [facility] Medical OncologyStart: 01-14-2024 End: 48-64-8325wuzfvgzpbf27/17/2024 10:00 AM EDT Infusion Neela Lennon [facility] [address] [place] [phone] Neela Lennon [facility] OncologyStart: 01-14-2024 End: 02-72-8141Akqnwiw encounter czcmqdoph79/17/2024 9:30 AM EDT Office Visit Neela Lennon [facility] - Medical Oncology [address] [place] [phone] Wallace Prado MD [address] [place] [address] [address] [place] [address] Neela Lennon [facility] Medical OncologyStart: 01-12-2024 End: 83-91-1213mrmnzluhnu87/15/2024 9:10 AM EDT Support Visit Neela Lennon [facility] - Medical Oncology [address] [place] [phone] Gymkstf L [facility] Medical OncologyStart: 01-11-2024 End: 69-28-6415Dtzcmtu encounter zyuhwdgpe05/14/2024 2:30 PM EDT Office Visit [facility] [address] [place], [place] [phone] Lynnette Abbott MD [address] [place], [place] [phone] [facility] Family MedicineStart: 01-08-2024 End: 19-64-1449CL Abdomen and Pelvis W contrast IVCT abdomen and pelvis with contrast Imaging Routine Hodgkin lymphoma, unspecified Hodgkin lymphoma type, unspecified body region (CMS-HCC) Expected: 01/08/2024, Expires: 12/02/2024 [facility] SystemComment on above:Expected: 01/08/2024, Expires: 12/02/2024Start: 01-08-2024 End: 66-27-4861KM Chest limited W contrast IVCT chest with contrast Imaging Routine Hodgkin lymphoma, unspecified Hodgkin lymphoma type, unspecified body region (CMS-HCC) Expected: 01/08/2024, Expires: 12/02/2024[facility] Work Phone: Comment on above:Expected: 01/08/2024, Expires: 12/02/2024Start: 01-08-2024 End: 63-43-6649Stofpsc encounter /11/2024 10:30 AM EDT Appointment [facility] - CT Imaging [address] [place] [phone] Wallace Prado MD [address] [place] [address] [address] [place], [place] [phone] [facility] - CT ImagingStart: 2023 End: 98-10-6333vddnncfcaz00/03/2024 10:00 AM EDT Infusion Neela Lennon [facility] - Medical Oncology [address] [place] [phone] Neela Lennon [facility] - Medical OncologyStart: 12-29-2023 End: 92-89-0581ksxopepjie99/01/2024 9:05 AM EDT Support Visit Neela Lennon [facility] - Medical Oncology [address] [place] [phone] L Kern [facility] - Medical OncologyStart: 12-17-2023 End: 52-46-0482bavxrkdisl38/19/2024 10:00 AM EDT Infusion Neela Lennon [facility] - Medical Oncology [address] [place] [phone] Neela [facility] OncologyStart: 12-15-2023 End: 76-37-8580wdilfvzjte83/17/2024 9:10 AM EDT Support Visit Neela Lennon [facility]cology [address] [place] [phone] Kwkxbdf L [facility] Medical OncologyStart: 12-03-2023 End: 09-92-9507mnprxgkmvl86/05/2024 10:00 AM EDT Infusion Neela Lennon [facility] [address] [place] [phone] Neela Lennon [facility] OncologyStart: 12-03-2023 End: 57-02-1475Uwonsfa encounter ycdgedywd88/05/2024 9:30 AM EDT Office Visit Neela Lennon [facility] [address] [place] [phone] Wallace Prado MD [address] [place] [address] [address] [place] [address] Neela Lennon [facility] Medical OncologyStart: 12-01-2023 End: 61-77-9325zczxkxyeay41/03/2024 9:10 AM EDT Support Visit Neela Lennon [facility]cology [address] [place] [phone] Tfgvgie L [facility] Medical OncologyStart: 11-29-2023 COVID-19 Vaccine ()COVID-19 Vaccine () [facility] SystemStart: 42-53-4643Tejznnxni vaccinationInfluenza Vaccine [facility] SystemStart: 11-19-2023 End: 09-20-0018qxazgjwobd35/22/2024 10:30 AM EDT Infusion [facility] Oncology [address] [place] [address] Neela Lennon [facility] Medical OncologyStart: 11-17-2023 End: 59-19-3870dnpsxgbgft44/20/2024 9:20 AM EDT Support Visit Neela Lennon [facility] - Medical Oncology [address] [place] [phone] Bpqwlhf L [facility] Medical OncologyStart: 11-05-2023 End: 84-50-1057qyzgcqmynn70/08/2024 10:00 AM EDT Infusion Neela Lennon [facility]cology [address] [place] [phone] Neela Lennon [facility] Medical OncologyStart: 11-03-2023 End: 18-85-7549nhhsddgqkl39/06/2024 9:10 AM EDT Support Visit Neela Lennon [facility] [address] [place] [phone] Uwlolyw L [facility] OncologyStart: 10-22-2023 End: 95-66-2760fkprhdphmn93/25/2024 10:00 AM EDT Infusion Neela Lennon [facility] - Medical Oncology [address] [place] [phone] Neela [facility] OncologyStart: 10-22-2023 End: 55-34-5331Tdjtdbk encounter xxcalwemq53/25/2024 9:30 AM EDT Office Visit Neela Lennon [facility] - Medical Oncology [address] [place] [phone] Wallace Prado MD [address] [place] [address] [address] [place] [address] Neela Lennon [facility] - Medical OncologyStart: 10-20-2023 End: 12-44-6867pzyknknsrm91/23/2024 2:30 PM EDT Support Visit Neela Lennon [facility] - [facility] Oncology [address] [place] [phone] Mkcbfay L [facility] Medical OncologyStart: 10-13-2023 End: 45-46-0814dlbierbyha25/16/2024 2:30 PM EDT Support Visit Neela Lennon [facility] [address] [place] [phone] Cgsqapo L [facility] Medical OncologyStart: 10-08-2023 End: 44-68-6960ahbwtoupuf66/11/2024 11:00 AM EDT Infusion Neela Lennon [facility] [address] [place] [phone] [facility] OncologyStart: 10-08-2023 End: 98-12-0705Kjtxglx encounter /11/2024 10:30 AM EDT Office Visit Neela Lennon [facility] [address] [place] [phone] Wallace Prado MD [address] [facility] [address] [place] [address] [facility] OncologyStart: 10-06-2023 End: 60-41-8414gpkaqeteic74/09/2024 9:30 AM EDT Support Visit Neela Lennon [facility] [address] [place] [phone] Ixisreo L [facility] Medical OncologyStart: 09-29-2023 End: 65-78-9770rldkngmqmd88/02/2024 9:15 AM EDT Support Visit Neela Lennon [facility] [address] [place] [phone] Zdxnzog L [facility] OncologyStart: 09-24-2023 End: 96-40-6991uvgyvgnmsc65/27/2024 10:00 AM EDT Infusion Neela Lennon [facility] - [facility] Oncology [address] [place] [address] [place] [address] [facility] OncologyStart: 09-23-2023 End: 08-16-1799xjkldpgvdg23/26/2024 9:00 AM EDT Support Visit Neela Lennon [facility] Oncology [address] [place] [phone] Fbhgmbi L [facility] Medical OncologyStart: 09-22-2023 End: 29-53-4595gzgfbehpuc49/25/2024 9:35 AM EDT Support Visit Neela Lennon [facility] [address] [place] [phone] Avxhfym L [facility] Medical OncologyStart: 09-10-2023 End: 61-26-9923fiaywypzwn49/13/2024 10:00 AM EDT Infusion Neela Lennon [facility] [address] [place] [phone] [facility] Medical OncologyStart: 09-10-2023 End: 57-24-9735Qveytlv encounter /13/2024 9:45 AM EDT Office Visit Neela Lennon [facility] [address] [place] [phone] Wallace Prado MD [facility] [place] [phone] Neela [facility] Medical OncologyStart: 09-09-2023 End: 24-26-1906jrrdhmciib17/12/2024 9:05 AM EDT Support Visit Neela Lennon [facility] - [facility] Oncology [address] [place] [phone] Htvvbrh L [facility] Medical OncologyStart: 08-27-2023 End: 48-88-3750unmaswexgf73/30/2024 12:00 PM EDT Infusion Neela Lennon [facility] Oncology [address] [place] [phone] Neela Lennon [facility] - Medical OncologyStart: 08-27-2023 End: 43-80-3298Dtchjxb encounter ajoojfopf85/30/2024 11:30 AM EDT Office Visit Neela Lennon [facility] - Medical Oncology [address] [place] [phone] Alysa Major, 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 [address] [facility], [address] [place] [address] Neela Lennon [facility] - Medical OncologyStart: 08-26-2023 End: 13-97-6868yxcvhshbik23/29/2024 9:00 AM EDT Support Visit Neela Lennon [facility] [address] [place] [phone] Pmfuffq L [facility] Medical OncologyStart: 08-19-2023 End: 50-31-4236gcwldyiwxd56/22/2024 9:05 AM EDT Support Visit Neela Lennon [facility] [address] [place] [phone] Tsjsnef L [facility] Medical OncologyStart: 08-17-2023 End: 92-22-4977Qpqwjbu encounter tqjbojqlo54/20/2024 10:00 AM EDT Appointment [facility] Interventional Radiology [address] [place] [address] Wallace Prado MD [address] [facility] [address] [place], [place] [phone] (Work) [facility] Interventional RadiologyStart: 08-13-2023 End: 78-43-1775ageqxhfteb82/16/2024 10:00 AM EDT Infusion Neela Lennon [facility] [address] [place] [phone] Neela [facility] Medical OncologyStart: 08-13-2023 End: 36-49-4518Ctipchg encounter jeevhpuoj91/16/2024 9:15 AM EDT Office Visit Neela Lennon [facility] - [facility] Oncology [address] [place] [phone] Wallace Prado MD [address] [place] [address] Neela Lennon [facility] - Medical OncologyStart: 08-12-2023 End: 94-26-6447swmxoqqouu71/15/2024 8:20 AM EDT Support Visit Neela Lennon [facility] Oncology [address] [place] [phone] Pmoluph L Kern [facility] - Medical OncologyStart: 08-11-2023 End: 81-12-4720wqepdnzthj34/14/2024 8:40 AM EDT Support Visit Neela Lennon [facility] Oncology [address] [place] [phone] Tyyfdhx L Kern [facility] - Medical OncologyStart: 08-07-2023 Subsequent hospital visit by jzlkotyky44/10/2024 11:00 AM EDT Hospital Encounter [facility] Neela Lennon [facility] - Pet Imaging [address] [place] [phone] DoiZlvonl Neela Lennon [facility] - Pet Imaging Start: 08-07-2023 End: 72-47-9338jjarnwvssv73/10/2024 10:15 AM EDT Infusion Neela Lennon [facility] Oncology [address] [place] [phone] Neela Lennon [facility] - Medical OncologyStart: 08-05-2023 End: 38-20-8609Seaxdkw encounter nepfksgqw14/08/2024 11:00 AM EDT Appointment [facility] - Interventional Radiology [address] [place] [phone] Wallace Prado MD [address] [place] [address] [phone] (Work) [facility] - Interventional RadiologyStart: 08-05-2023 End: 39-14-9706ydoknivdjj12/08/2024 9:00 AM EDT Support Visit Neela Lennon [facility] - Medical Oncology [address] [place] [phone] L Kern [facility] - Medical OncologyStart: 07-31-2023 End: 58-60-5870xxtmtcchlySxyksjx L [facility] Medical OncologyStart: 07-30-2023 End: 68-67-0439elzcgyyixs93/02/2024 11:35 AM EDT Support Visit Neela Lennon [facility] Oncology [address] [place] [phone] [phone] L [facility] Medical OncologyStart: 07-21-2023 End: 53-95-2370CEW Guidance for repair of CV catheter with port or pump of Vein IR Port insertion more than 5 years Imaging Routine Lymphoma, unspecified body region, unspecified lymphoma type (CMS-HCC) Expected: 07/21/2023, Expires: 07/20/2024[employer] Work Phone: Comment on above:Expected: 07/21/2023, Expires: 07/20/2024Start: 07-16-2023 End: 00-36-5115QM Skull base to mid-thighPET CT skull to thigh Imaging Routine Lymphoma, unspecified body region, unspecified lymphoma type (CMS-HCC) Expected: 07/16/2023, Expires: 07/15/2024[facility] Work Phone: Comment on above:Expected: 07/16/2023, Expires: 07/15/2024Start: 88-66-9110VOPQI-19 Vaccine ( season)COVID-19 Vaccine ( season)[facility] SystemStart: 51-08-1797Zcmt Risk Screening Fall Risk ScreeningProC[facility] Clinic [facility] SystemStart: 10-51-8922FKcM,Tdap and Td Vaccines (1 - Tdap)DTaP,Tdap and Td Vaccines (1 - Tdap)[facility] [employer] Start: 21-76-4860Wzcfm BMI Follow Up PlanAdult BMI Follow Up PlanAtrium Health Carolinas Medical Centertart: 06-27-5536Dkjidewone ScreeningDepression ScreeningAtrium Health Carolinas Medical Centertart: 10-04-1958Medicare Annual Wellness VisitMedicare Annual Wellness VisitAtrium Health Carolinas Medical Centertart: 04-80-5896Qjgahtxxf for malignant neoplasm of colonNOMS HealthcareStart: 59-64-5970Sqioet Use: Cardiovascular Statin Use: [facility]ovascularA[facility] End: 61-79-7085Eoto MarrowBone Marrow Lab Routine 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) 1 Occurrences starting 06/10/2024 until 06/10/2025[facility] CenterComment on above:1 Occurrences starting 06/10/2024 until 06/10/2025 End: 57-91-5334Dxas Marrow Aspiration -Bone Marrow Aspiration - Procedures Routine 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) 1 Occurrences starting 06/10/2024 until 06/10/2025[facility] CenterComment on above:1 Occurrences starting 06/10/2024 until 06/10/2025 End: 08-12-2024 difficile by PCRC difficile by PCR Lab Routine Hodgkin lymphoma of intrapelvic lymph nodes, unspecified Hodgkin lymphoma type (CMS-HCC) Diarrhea of presumed infectious origin 1 Occurrences starting 08/13/2023 until 08/12/2024 [facility]: Comment on above:1 Occurrences starting 08/13/2023 until 08/12/2024 End: 09-83-7506MDU W Auto Differential panel - BloodCBC auto differential Lab Routine 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 for 50 Occurrences starting 07/24/2023 until 3[facility] Work Phone: Comment on above:weekly for 50 Occurrences starting 07/24/2023 until 07/23/2032 End: 04-12-2475OOE W Auto Differential panel - BloodCBC auto differential Lab STAT 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) Per Treatment Plan for 50 Occurrences starting 07/28/2023 until 07/28/2024[facility] Work Phone: Comment on above:Per Treatment Plan for 50 Occurrences starting 07/28/2023 until 07/28/2024 End: 84-34-6113MCL W Auto Differential panel - BloodCBC auto differential Lab Routine 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) 1 Occurrences starting 06/10/2024 until 06/10/2025[facility] Work Phone: Comment on above:1 Occurrences starting 06/10/2024 until 06/10/2025 End: 97-44-4035EDO W Auto Differential panel - BloodCBC auto differential Lab STAT 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) Per Treatment Plan for 50 Occurrences starting 06/30/2024 until 07/01/2025[facility] Work Phone: Comment on above:Per Treatment Plan for 50 Occurrences starting 06/30/2024 until 07/01/2025BC W Auto Differential panel - BloodCBC auto differential Lab STAT 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) 08/02/2024 10:44 AM EDT[facility] Work Phone: CBS W Auto Differential panel - BloodCBC auto differential Lab STAT 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) 08/30/2024 9:56 AM EDTPOration Health SystemCBC W Auto Differential panel - BloodCBC auto differential Lab STAT 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) 10/26/2024 10:44 AM EDT [facility] Work Phone: End: 05-66-6322HZB W Auto Differential panel - BloodCBC auto differential Lab Routine 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) 1 Occurrences starting 12/08/2024 until 12/08/2025[facility] SystemComment on above:1 Occurrences starting 12/08/2024 until 12/08/2025 End: 92-74-5407Hoisyskfaxrxu metabolic 2000 panel - Serum or PlasmaComprehensive metabolic panel Lab Routine 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 for 50 Occurrences starting 07/24/2023 until 07/23/2024[facility] SystemComment on above:weekly for 50 Occurrences starting 07/24/2023 until 07/23/2024 End: 79-94-7457Juonnxbbnkuca metabolic 1999 panel - Serum or PlasmaComprehensive metabolic panel Lab STAT 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) Per Treatment Plan for 50 Occurrences starting 07/28/2023 until 07/28/2024[facility] CenterComment on above:Per Treatment Plan for 50 Occurrences starting 07/28/2023 until 07/28/2024 End: 20-76-6537Hxnnrlziylkij metabolic 1999 panel - Serum or PlasmaComprehensive metabolic panel Lab STAT 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) Per Treatment Plan for 50 Occurrences starting 06/30/2024 until 07/01/2025[facility] CenterComment on above:Per Treatment Plan for 50 Occurrences starting 06/30/2024 until 07/01/2025omprehensive metabolic 1999 panel - Serum or PlasmaComprehensive metabolic panel Lab STAT 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) 08/30/2024 9:56 AM EDT [facility] End: 65-06-2177Ndrxpkptgsc sedimentation rateErythrocyte Sedimentation Rate (ESR) Lab Routine 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 for 50 Occurrences starting 07/24/2023 until 07/23/2024 [facility] [employer] [facility] CenterComment on above:weekly for 50 Occurrences starting 07/24/2023 until 07/23/2024 End: 45-52-4755Cdfc Cytometry Bone MarrowFlow Cytometry Bone Marrow Lab Routine 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) 1 Occurrences starting 06/10/2024 until 06/10/2025[facility] CenterComment on above:1 Occurrences starting 06/10/2024 until 06/10/2025 End: 67-07-0476CR Panel(stool pathogen panel)GI Panel(stool pathogen panel) Lab Routine Hodgkin lymphoma of intrapelvic lymph nodes, unspecifiedHodgkin lymphoma type (CMS-HCC) Diarrhea of presumed infectious origin 1 Occurrences starting 08/13/2023 until 08/12/2024ProMercer County Community HospitalValentin Uzhun SystemComment on above:1 Occurrences starting 08/13/2023 until 08/12/2024 End: 62-47-1341Zbdtzuzmk specific antigen screenProstatic specific antigen screen Lab Routine Screening for prostate cancer 1 Occurrences starting 0 06/02/2024 until 06/02/2025[employer] Work Phone: Comment on above:1 Occurrences starting 06/02/2024 until 06/02/2025 End: 79-11-1906Jegfaasn PathologySurgical Pathology Pathology and Cytology Routine Hodgkin lymphoma of intrapelvic lymph nodes, unspecified Hodgkin lymphoma type (CMS-HCC) Bone lesion 1 Occurrences starting 03/04/2024 until 03/04/2025ProMercer County Community HospitalValentin Uzhun SystemComment on above:1 Occurrences starting 03/04/2024 until 03/04/2025 End: 08-74-6281Odyppysp PathologySurgical Pathology Pathology and Cytology Routine Hodgkin lymphoma, unspecified Hodgkin lymphoma type, unspecified body region (CMS-HCC) Bone lesion 1 Occurrences starting 06/02/2024 until 06/02/2025 [facility] CenterComment on above:1 Occurrences starting 06/02/2024 until 06/02/2025 End: 79-05-0930Tmobwyg profile includes TSH RF9Lsgnhsm profile includes TSH FT4 Lab STAT Hodgkin lymphoma, unspecified Hodgkin lymphoma type, unspecified body region (CMS-HCC) Essential (primary) hypertension Fatigue, unspecified type Malaise pertreatment plan for 50 Occurrences starting 06/30/2024 until 06/30/2025ProMercer County Community HospitalValentin Uzhun [facility] CenterComment on above:per treatment plan for 50 Occurrences starting 06/30/2024 until 06/30/2025Thyroid profile includes TSH FT4 Thyroid profile includes TSH FT4 Lab STAT Hodgkin lymphoma, unspecified Hodgkin lymphoma type, unspecified body region (CMS-HCC) Essential (primary) hypertension Fatigue, unspecified type Malaise 08/30/2024 9:56 AM EDT[facility] Work Phone: End: 76-65-9836Czftx [Mass/volume] in Serum or PlasmaUric acid Lab Routine 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 for 50 Occurrences starting 07/24/2023 until 07/23/2024[facility] Comment on above:weekly for 50 Occurrences starting 07/24/2023 until 07/23/2024 Immunizations Immunization DateImmunizationNotesCare NwwxhzrzIeyqqxkd90-96-0427lmjebidyu virus vaccine, unspecified formulationCandakirsty DouglasShenandoah Memorial Hospital 34-83-0376Mntai-19, Mrna, Lnp-s, Pf,brenda-sucrose,30 Mcg/0.3ml Rmgg30Akkldi Shipe 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 Work Phone: [facility] CenterVuqyxd23-98-7718wweqlxrfgwaj 20- valent conjugate vaccineSsharon Hobbs 064-7644Umoclj-EzalrKettering Health Troy 54-99-0911FSL, bivalent, protein subunit RSVpreF, diluent reconstituted, 0.5 mL, PFMartha Shipe 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 Work Phone: [facility] CenterUtbnyr66-62-0589calnkixmt virus vaccine, unspecified formulationSsharon Hobbs 600-9639Lmydsq-FprhcKettering Health Troy 57-04-2135Zqvagfpft, High-dose, QuadrivalentMartha Shipe 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 Work Phone: [facility] Medical CenterIctons32-93-2138STCS-VtN-0 (COVID-19) mRNAMUL.ORD!g28721Cbucky Ross [phone]-TlkrwKettering Health Troy Comment on above:Result Comment: 2023-06-02: AMS3086-90-4474kozkzpfvj virus vaccine, unspecified formulationSsharon Hobbs [phone]-WiffnKettering Health Troy 73-54-3791dcljdwgfn, injectable, quadrivalent, preservative freeMartha Shipe 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 Work Phone: [facility] CenterKzfgmw51-04-1972ZCEL-AyY-6 mRNA (ijbicwtlgzl-lnid-hwshood) vaccineSsharon Hobbs 839-2106Simjst-RvfnfKettering Health Troy 87-68-4958wkxrme vaccine recombinantSsharon Hobbs 892-2317Hcahfw-OnlfyKettering Health Troy 83-66-5870sfswlkwwh virus vaccine, unspecified formulationSsharon Hobbs 234-9509Vkmluz-IkfdlKettering Health Troy 91-18-1117qnmmtshtw, injectable, quadrivalent, preservative freeMartha Shipe 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 Work Phone: [facility]10-03-2021zoster vaccine recombinantSsharon Hobbs [phone]-YrnfbKettering Health Troy 23-52-4001WRQS-CoV-2 (COVID-19) mRNA BNT-162b2 vaChristiano Hobbs 706-7801Cubnaj-LnrecKettering Health Troy 50-95-3574GICN-CoV-2 (COVID-19) mRNA BNT-162b2 vaxSsharon Hobbs 032-4331Vahjci-UzanhKettering Health Troy 35-56-6269HADY-CoV-2 (COVID-19) mRNA BNT-162b2 Frances Hobbs 901-1973Hlulfs-HflfbKettering Health Troy 77-89-8754meksbaawg, injectable, quadrivalent, preservative freeMartha Shipe 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 Work Phone: [facility] CenterDkfyvw86-50-4789wkhmguaxx virus vaccine, unspecified formulationSsharon Hobbs 960-1631Rhthal-HvtreKettering Health Troy 66-78-3794lybhvzbnz, seasonal, injectableMartha Shipe 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 Work Phone: [facility] CenterCvzgky41-79-9669saerhlxfd virus vaccine, unspecified formulationSsharon Hobbs 147-2621Poqgkn-HchbkC[facility] Sonia 95-07-1552uxcfintmk, seasonal, shannonLoidatrang Trotter 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 Work Phone: [facility] Payers DatePayer CategoryPayerPolicy [id number] IndemnityMEDICAL MUTUAL Member Subscriber Plan / Payer (Effective 2023-Present) Name: Torsten Haywood Chepe Relation to Subscriber: Self Name: Torsten Haywood Chepe Payer ID: Not on file Type: Not on file Address: [place] [id number] Health InsuranceMEDICAL MUTUAL Member Subscriber Plan / Payer (Effective 2023-Present) Name: Torsten Haywood Relation to Subscriber: Self Name: Torsten Haywood Payer ID: Not on file Type: Not on file Address: [address] [id number] [id number] [id number] 2.16.840.1.441455.3.57[id number] 2.16.840.1.009972.3.57[id number] 2.16.840.1.352597.3.579.2.416701-16-1513Uwawnpq79344313 2.16.840.1.922817.3.579.2.121902-27-3717Blpgyzp75881621 2.16.840.1.494730.3.579.2.385502-35-8392Cdaqecv46257761 2.16840.1.484242.3.579.2.544412-72-7420Tuslbbe83598586 2.840.1.758930.3.579.2.826323-34-9261Tfbbidl69979420 2.16.840.1.434667.3.579.2.94509-90-7328Enzbzye89017775 2.16.840.1.716230.3.579.2.98268-84-2086Vmmhmpv73409733 2.840.1.662282.3.579.2.13168-88-7008Fqlikol62838262 2.16.840.1.248728.3.579.2.41522-40-9843Okmqsui46404218 2.16.840.1.378003.3.579.2.21323-61-6573Mgvdtpr08157619 2.16.840.1.818247.3.579.2.47590-36-9879Eiqmbtb18499134 2.16.840.1.251947.3.579.2.32249-14-0123Tlrqkwy94966998 2.16.840.1.855323.3.579.2.58359-40-5591Untowmr94858812 2.16.840.1.958215.3.579.2.07775-70-0611Lkjtfea4774473 2.16.840.1.578090.3.579.2.017114-43-5088Dvntkki8999924 2.16840.1.431873.3.579.2.660749-44-7838Emwokzo2124418 2.16840.1.621992.3.579.2.699392-63-9808Pcwlchw535592486 2.16840.1.657049.3.579.2.400782-10-0695Dpqavaq46299435 2.840.1.081652.3.579.2.192525-95-1820Fplozxd77693074 2.840.1.136067.3.579.2.535940-56-8189Tahpwei49436149 2.840.1.634305.3.579.2.004461-75-3991Igxreyw03183945 2.0.1.899185.3.579.2.667565-23-7990Vtezccr09865478 2.840.1.488984.3.579.2.109830-00-6262Bylnpgy16483767 2.840.1.737970.3.579.2.559396-47-4659Qhbfvwl05033658 2.16840.1.406643.3.579.2.270282-28-9825Xlppuwz35716192 2.840.1.607429.3.579.2.337013-69-9985Ccfzqtn23633025 2.16.840.1.953033.3.579.2.903637-25-6985Eastrmz12440048 2.16.840.1.007043.3.579.2.434136-77-5546Ixyeret56174283 2.16.840.1.712853.3.579.2.964823-88-0862Yjefvgy11205330 2.16.840.1.948606.3.579.2.519750-66-2220Ceihshj85783335 2.16.840.1.316294.3.579.2.087889-04-5260Sqfhbnu97593456 2.16.840.1.055941.3.579.2.206556-28-0333Slafgmh68781079 2.16.840.1.905708.3.579.2.518691-24-8656Okhsmch50187213 2.16.840.1.973034.3.579.2.391088-95-0657Uflcnur01057970 2.16.840.1.509259.3.579.2.961867-07-6884Bnixtjp40909727 2.16.840.1.750401.3.579.2.951458-84-7936Fdvvgsw631563405 2.16.840.1.050402.3.579.2.852115-97-5502Dvawivp022546421 2.16.840.1.910942.3.579.2.589749-71-5755Mhvqsoo649529812 2.16.840.1.723386.3.579.2.589811-11-6155Hhmrjio154450358 2.16.840.1.389867.3.579.2.178467-24-3743Fscbubs911002779 2.16.840.1.736322.3.579.2.349471-26-0869Ykjwrnc443080569 2.16.840.1.782783.3.579.2.461948-76-8803Hpnzttb518771730 2.16.840.1.979102.3.579.2.072047-48-1156Yjnxyll875904534 2.16.840.1.033217.3.579.2.394096-68-7945Uhpuwtc179835549 2.16.840.1.706689.3.579.2.920720-30-6083Pbxxjqx360428912 2.16840.1.556587.3.579.2.740954-90-7286Jwoxckf460115776 2.840.1.519389.3.579.2.084200-31-6598Kgnkmov038604540 2.16840.1.819090.3.579.2.739460-72-5028Nzbcupz351351765 2.840.1.265351.3.579.2.951504-57-5420Iqpfwss160145744 2.16840.1.615005.3.579.2.759085-78-0148Axietaw666740098 2.16840.1.550188.3.579.2.857052-07-5071Yghzzts873872800 2.16840.1.024245.3.579.2.286386-50-6653Lpapxfn779877552 2.16.840.1.197454.3.579.2.910709-07-4165Hiqpfhw723743728 2.16.840.1.943839.3.579.2.575977-17-5367Jowsfzg344545292 2.16.840.1.107284.3.579.2.040126-48-1507Cfptvlj390373052 2.16.840.1.584962.3.579.2.466572-79-0598Agmjaxp867928438 2.16.840.1.844931.3.579.2.560832-26-0267Abkexht341021899 2.16.840.1.541057.3.579.2.384380-09-5918Itxkkbi342406054 2..840.1.785227.3.579.2.181765-12-1051Mfkyfvt667885463 2.16.840.1.614181.3.579.2.184226-80-7531Alocqzt600560388 2.840.1.313661.3.579.2.061293-72-7099Vluxxzf919125997 2.840.1.643328.3.579.2.642889-62-8356Dkoetbw604929856 2.840.1.394543.3.579.2.103427-15-1161Kofwddu522772208 2.840.1.826222.3.579.2.706738-00-1854Hsprego660700735 2.840.1.502668.3.579.2.586866-25-9878Ziausys701366065 2.840.1.828486.3.579.2.769074-37-6815Ylvhcoh264606951 2.16.840.1.542569.3.579.2.205593-97-4260Adqxqmm232576520 2.16840.1.805395.3.579.2.483212-43-5600Bmshtaw458978914 2.16.840.1.584888.3.579.2.122218-64-5384Hettafn302381956 2.16.840.1.808782.3.579.2.180075-84-9233Hrqypji601017488 2.16.840.1.633554.3.579.2.807187-39-7409Yefaiwq482780195 2.16.840.1.653526.3.579.2.036197-02-4090Ukjbbve834263505 2.16.840.1.218660.3.57[id number] 2.16.840.1.488883.3.57[id number] 2.840.1.273799.3.57[id number] 2.16.840.1.831831.3.57[id number] 2.16.840.1.662123.3.57[id number] 2.16.840.1.850370.3.57[id number] 2.16.840.1.447317.3.57[id number] 2.16.840.1.435735.3.57[id number] 2.16.840.1.943883.3.57[id number] 2.16.840.1.005223.3.57[id number] 2.16.840.1.097623.3.57[id number] 2.16.840.1.372858.3.57[id number] 2.16.840.1.374735.3.57[id number] 2.16.840.1.161131.3.57[id number] 2.16.840.1.785461.3.57[id number] 2.16.840.1.116879.3.579.[id number] 2.16.840.1.811318.3.57[id number] 2.16.840.1.789671.3.57[id number] 2.16.840.1.523605.3.57[id number] 2.16.840.1.411244.3.57[id number] 2.16.840.1.300459.3.579.2.1286Self-paySelf [facility] [id number] Social History DateTypeDetailFacilityTobacco smoking status NHISUnknown if ever smokedNorwalk Memorial Hospital CtrStart: 07-29-3533Ogi Assigned At [facility] CtrStart: 03-08-2020 End: 84-02-2993Siqstbx smoking statusNever smoked tobacco (finding)[facility] [place]vueStart: 04-12-2020 End: 43-66-4964Vbi Assigned At BirthMaleFMercy Health St. Rita's Medical CenterTobacco smoking status NHISTobacco smoking consumption unknownNOMO HealthcareStart: 42-43-9104Igf assigned at birthNot on fileProCleveland Clinic [facility] SystemStart: 03-08-2020 End: 59-71-7374Qmyudac use and exposureSmokeless tobacco non-userFairfield Medical Center SystemStart: 02-22-2024 End: 36-32-5422Jduwviluy beverage intakeEx-drinker (finding)[facility] Start: 04-07-2024 End: 92-70-8178Xpquobpfm beverage intakeLifetime non-drinker (finding)[facility] HospitalSp[facility] SystemStart: 04-12-2020 End: 93-58-0189Lvgodtc of Social functionGalion Hospital Cash'o & Butcher SystemHas the [employer], gas, oil, or water company threatened to shut off services in your home in past 12MoNColer-Goldwater Specialty HospitalValentin Uzhun SystemHow often to you have a drink containing alcohol?NeverOhioHealth Grove City Methodist HospitalForsytheHow many standard drinks containing alcohol do you have on a typical day?Not askedOhioHealth Grove City Methodist HospitalValentin Uzhun System Start: 96-02-5240NgtBqky (finding)[facility] HospitalEx[facility] Medical Equipment Procedure CodeEquipment CodeEquipment Original TextEquipment IdentifierDatesPort Powerport Clrvu Argd 8fr 1 Lum Ltwt Intmd Maria Guadalupe Pu - [id number], [id number] FDAStart: 08-05-2023 Goals DatePatient GoalDesired Activity/StatePersonal health goalComment on above: Evaluation of progress towards goal: Patients goal is to have a safe discharge home with self care and family support. Resume home care with [facility]. Evaluation of progress towards goal: Patients goal is to have a safe discharge home with self care and family support. Clinical Notes 07-13-2023 to 01-17-2025 Note Date & [id number] History of Present illness Narrative* Norman Sosa RN - 01/17/2025 1:30 PM EDT Port flush per protocol documented in this encounterAdena [facility]09-[facility] History of Present illness Narrative* Frank Morley RN - 12/09/2024 3:00 PM EDT Fulphila administered sq to MARA. Pt tolerated well. documented in this encounterAdena Pike Medical Center09-11-2025 History of Present illness Narrative* Sonya Reyes RN - 12/08/2024 11:54 AM EDT Patient is seen in follow up with Dr. Prado for lymphoma. Received the following orders: Okay to treat. Wallace Prado MD 12/08/2024 Last dose of chemo. PET scan in late 02/2025 Bone marrow biopsy mid 02/2025 ([facility]) F/u in mid 03/2025. Continue port flushes every 8 weeks. BMB and PET orders placed. Follow up with Dr. Prado scheduled for 04/06/25. Treatment calendar, AVS andall orders provided to patient. He verbalized understanding to all instructions. Discharged in stable condition to infusion bay for treatment. documented in this encounterAdena Pike Medical Center09-11-2025 History of Present illness Narrative* Nahomy Patel RN - 12/08/2024 11:30 AM EDT Patient is here for opdivo, AVD infusions as scheduled.He saw Dr. Prado today okay to proceed with last infusion. He reports he is tolerating treatment well with minimal side effects. Labs and VS reviewed and OK for treatment. Port accessed under sterile procedure with brisk blood return verified andline flushes with ease. NS initiated as mainline at KVO rate. Premedicated with PO tylenol and po benedryl given. IVPB aloxi/dexamethasone given over 15 minutes. Line flushed. Opdivo infused over 60 minutes without incident. Line flushed. NS wide open off pump. Adriamycin administered IVP per protocol with frequent blood return checks. Velban infused over 10 minutes. Line flushed, followed by DTIC over 30 minutes without incident. Line flushed. Port flushed via push/pause method, saline locked,de-accessed and site covered with band aid. This is his last treatment. calendar reviewed. Patient discharged in stable condition to our facility transporter. documented in this encounterAdena Pike Medical Center09-11-2025 History of Present illness Narrative* Wallace Prado MD - 12/08/2024 11:15 AM EDT Images from the original note were not included. [facility] Rajendra Manrique M.D. Aimee Anderson M.D. Fili Bolanos M.D. Briseida Sena M.D. Chantale Melvin, [facility] Morales Joseph, [facility] Gala Trotter, [facility] Angelika Jones, [facility] ROSIBEL Javier M.D. Santiago Nicolas M.D. Dale Bro M.D. Brandon Banuelos M.D. Alysa Major, [facility] Carmen Park, [facility] Jennifer Eaton, [facility] Parul Esteves, [facility] PROGRESS NOTE 12/08/24 History of present illness: The patient is a 67 y.o. male Who presented to [facility] due to some new worsening shortness of breath over the last 2 days. He was transferred to [facility] for further workup. Patient had noted [...] show any malignant cells at this time. Healfranki had pleural fluid drained, which did not [...] diarrhea profound fatigue and declined performance status. PET scan 04/2024 showed evidence of disease progression, biopsy with a bone marrow confirmed persistent classical Hodgkin's lymphoma PET 08/2024 after 3 rounds of Opdivo/AVD showed complete response Interval History: The patient received 1st dose of AVD/brentuximab 08/2023, treatment was complicated with norovirus infection and significant diarrhea. Treatment was changed back to brentuximab only. Before AVD treatment, he was able to walk up steps gaining weight, after the diarrhea and hospitalization he is back to walking with a walker again. The patient's last dose of brentuximab was the end of 01/17/24. PET scan showed residual activity in the bone, biopsy came back negative for malignancy. He repeated PETscan again April 2024, showed disease progression, biopsy confirmed persistent classical Hodgkin's lymphoma in the bone marrow. The patient is due for C6D15 Opdivo /AVD, continue to tolerate treatment very well. No significant nausea. After Eliquis dose was decreased to 2.5 mg twice a day, he has no further bleeding from his nose. He complains about watery eyes. He is able to ambulate with walker. No significant change of peripheral neuropathies. He is currently taking gabapentin 300 mg 3 times a day. No new constitutional symptoms. Objective Physical Examination: Vitals: BP 124/86 Pulse 95 Temp 36.9 C (98.4 F) (Oral) Resp 17 Ht 183 cm (6' 0.05 ) Wt 107.4 kg (236 lb 12.8 oz) SpO2 95% BMI 32.07 kg/m Physical Exam Constitutional: General: He is [...] Lines, Drains, Airways: peripheral IV Recent Labs Recent Results (from the past 24 hours) CBC auto differential Collection Time: 12/07/24 1:12 PM Result Value Ref Range WBC 17.1 (H) 4 - 11 x10E9/L RBC Count 4.09 (L) 4.1 - 5.7 X10E12/L Hemoglobin 13.1 13 - 17 g/dL Hematocrit 39.9 39 - 50 % MCV 97 80 - 100 fL MCH 31.9 27 - 34 pg MCHC 32.8 32 - 36 g/dL RDW 19.5 (H) 11.5 - 15 % Platelet Count 375 150 - 450 X10E9/L MPV 10.1 7 - 12 fL Metamyelocytes % 1 % Bands % 3 % Neutrophils % 51 % Lymphocytes % 36 % Monocytes % 8 % Eosinophils % 1 % nRBC 2 Neutrophils Absolute (M) 9.1 (H) 1.5 - 6.6 10*3/uL Lymphocytes Absolute 6.2 (H) 1.0 - 3.5 10*3/uL Monocytes Absolute 1.4 (H) 0.0 - 0.9 10*3/uL Eosinophils Absolute 0.2 0.0 - 0.4 10*3/uL Differential Type MANUAL DIFFERENTIAL Comprehensive metabolic panel Collection Time: 12/07/24 1:12 PM Result Value Ref Range SODIUM 137 134 - 146 mmol/L POTASSIUM 4.1 3.5 - 5.0 mmol/L CHLORIDE 103 98 - 109 mmol/L CARBON DIOXIDE 25 22 - 32 mmol/L ANION GAP 9 5 - 15 mmol/L BLOOD UREA NITROGEN 18 5 - 27 mg/dL CREATININE 0.83 0.70 - 1.20 mg/dL GLUCOSE 131 (H) 65 - 99 mg/dL CALCIUM 8.9 8.5 - 10.5 mg/dL TOTAL PROTEIN 6.5 6.0 - 8.0 g/dL ALBUMIN 3.6 3.2 - 5.3 g/dL ALKALINE PHOSPHATASE 89 39 - 130 U/L AST 36 <=41 U/L ALT 31 <=40 U/L BILIRUBIN,TOTAL 0.5 0.3 - 1.2 mg/dL EGFR Non-Race Dependent >90 >=60 ml/min/1.73sq.m Thyroid profile includes TSH FT4 Collection Time: 12/07/24 1:12 PM Result Value Ref Range FREE T4 1.11 0.61 - 1.60 ng/dL TSH 3.30 0.49 - 4.67 uIU/mL Inpatient scheduled medications: Current Outpatient Medications: acetaminophen (TYLENOL EXTRA STRENGTH) 500 mg tablet, Take 2 tablets (1,000 mg total) by mouth in the morning and 2 tablets (1,000 mg total) before bedtime., Disp: , Rfl: amiodarone (PACERONE) 200 mg tablet, Take 1 tablet (200 mg total) by mouth in the morning., Disp: ,Rfl: apixaban (ELIQUIS) 5 mg tablet, Take 0.5 tablets (2.5 mg total) by mouth in the morning and 0.5 tablets (2.5 mg total) before bedtime., Disp: , Rfl: atorvastatin (LIPITOR) 20 mg tablet, Take 1 tablet (20 mg total) by mouth in the morning., Disp: , Rfl: B complex-vitamin C-folic acid (NEPHROCAP) 1 mg capsule, Take 1 capsule by mouth in the morning., Disp: , Rfl: bumetanide (BUMEX) 2 mg tablet, Take 1 tablet (2 mg total) by mouth daily as needed (for swelling)., Disp: , Rfl: calcium carbonate (OS-SARAH BETH) 600 mg elemental (1,500 mg) tablet, Take 1 tablet (600 mg total) by mouth daily with breakfast., Disp: , Rfl: dexAMETHasone (DECADRON) 4 mg tablet, Take 2 tablets (8 mg) by mouth once daily on days 2, 3, 4 and16, 17,18., Disp: 40 tablet, Rfl: 2 digoxin (LANOXIN) 250 mcg tablet, Take 1 tablet (250 mcg total) by mouth in the morning., Disp: , Rfl: docusate sodium (COLACE) 100 mg capsule, Take 1 capsule (100 mg total) by mouth in the morning and 1 capsule (100 mg total) before bedtime., Disp: , Rfl: famotidine (PEPCID) 40 mg/5 mL (8 mg/mL) suspension, Take 2.5 mL (20 mg total) by mouth in the morning and 2.5 mL (20 mg total) before bedtime., Disp: , Rfl: gabapentin (NEURONTIN) 300 mg capsule, Take 1 capsule (300 mg total) by mouth 3 (three) times a day., Disp: 90 capsule, Rfl: 1 ibuprofen (ADVIL,MOTRIN) 200 mg tablet, Take 1 tablet (200 mg total) by mouth every 6 (six) hours as needed for pain., Disp: , Rfl: loratadine (CLARITIN REDITABS) 10 mg disintegrating tablet, Dissolve 1 tablet (10 mg total) on tongue in the morning., Disp: , Rfl: magnesium oxide (MAGOX) 400 mg tablet, Take 1 tablet (400 mg total) by mouth in the morning., Disp:30 tablet, Rfl: 6 metoprolol succinate XL (TOPROL XL) 25 mg [...] or vomiting., Disp: 60 tablet, Rfl: 2 potassium chloride (KLOR-CON M 20) 20 MEQ CR tablet, Take 1 tablet (20 mEq total) by mouth in the morning and 1 tablet (20 mEq total) before bedtime. Plan to stop the potassium supplementation once diarrhea has resolved.., Disp: 60 tablet, Rfl: 6 DM/p-ephed/acetaminoph/doxylam (NYQUIL D ORAL), Take by mouth as needed. (Patient not taking: Reported on 10/27/2024), Disp: , Rfl: No current facility-administered medications for this visit. Facility-Administered Medications Ordered in Other Visits: dacarbazine (DTIC) 855 mg in sodium chloride 0.9 % 500 mL chemo IVPB, 375 mg/m2 (Treatment Plan Recorded), intravenous, Once, Wallace Prado MD diphenhydrAMINE (BENADRYL) injection 25 mg, 25 mg, intravenous, Q15 Min PRN, Wallace Prado MD DOXOrubicin (ADRIAMYCIN) chemo injection 57 mg, 25 mg/m2 (Treatment Plan Recorded), intravenous, Once, Wallace Prado MD EPINEPHrine (ADRENALIN) 1 mg/mL injection FOR ANAPHYLAXIS 0.3 mg, 0.3 mg, intramuscular, Q5 Min PRN, Wallace Prado MD methylPREDNISolone sod suc(PF) (Solu-MEDROL) injection 125 mg, 125 mg, intravenous, PRN, Wallace Prado MD nivolumab (OPDIVO) 240 mg in sodium chloride 0.9 % 100 mL chemo IVPB, 240 mg, intravenous, Once, Wallace Prado MD, Last Rate: 150 mL/hr at 12/08/24 1224, 240 mg at 12/08/24 1224 sodium chloride 0.9 % bolus, 500 mL, intravenous, PRN, Wallace Prado MD sodium chloride 0.9 % flush 20 mL, 20 mL, intravenous, PRN, Wallace Prado MD, 20 mL at 12/08/24 1159 sodium chloride 0.9 % infusion, 25 mL/hr, intravenous, Continuous PRN, Wallace Prado MD, Last Rate: 25 mL/hr at 12/08/24 1200, 25 mL/hr at 12/08/24 1200 vinBLAStine (VELBAN) 14 mg in sodium chloride 0.9 % 50 mL chemo IVPB, 6 mg/m2 (Treatment Plan Recorded), intravenous, Once, Wallace Prado MD Diagnosis Problem list: Patient Active Problem List Diagnosis Mass of lung Multifocal pneumonia Benign hypertensive cardiomyopathy with heart failure (CMS-HCC) Cardiomyopathy (CMS-HCC) Chronic systolic heart failure (CMS-HCC) Coronary atherosclerosis Factor V Leiden mutation HTN (hypertension) 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 Paroxysmal atrial fibrillation on Eliquis, reduced dose due to recurrent epistaxis Mr. Haywood is a 67 y.o. male with recent diagnosis of classic Hodgkin's lymphoma. The patient's path was reviewed at [facility], the tumor was deemed to be EBV positive, immunohistochemistry staining is consistent with Hodgkin's lymphoma. The tumors are CD15, CD30 GATA3 and Charlo positive. These tumors are negative for all other markers tested. Patient has a normal CD4: CD8 ratio. His CT scan after 1 dose of brentuximab already show improvement in retroperitoneal and mediastinallymph node. C3 day 1 brentuximab/ABD, treatment was [...] in the abdomen. Due to worsening neuropathy, His last dose of brentuximab treatment was in December 2023. PET scan 01/2024 showed mediastinal lymph node and intra-abdominal lymph nodes all improved in sizeand activity except subcarinal lymph node decreased in size increase in activity with SUV of 9. He has new onset FDG uptake in right 10th rib, L2 and left greater than right initial tuberosity. Biopsy of the left hip lesion came back negative for residual disease. Repeat PET scan 05/2024 showed worsening bony lesions, there is progression of multifocal hypermetabolic disease. There is multifocal bone activity which looks increased in extent and distribution. There is increase in hypermetabolic lymphadenopathy with dominant subcarinal mass, mild right axillary and supraclavicular disease There is mild multifocal liver activity which looks new. There is suggestion of right pleural disease at the right lung base. There are small lung nodules which looks new but do not demonstrate abnormal metabolic activity/uptake. The patient has biopsy-proven disease progression with bone marrow involvement. Labs are adequate to proceed with nivolumab. Check echocardiogram to evaluate ejection fraction before anthracycline exposure again. Ejection fraction is 55% from outside hospital. After 3 months of Opdivo/AVD treatment, PET scan showed complete response. Overall he has been tolerating well without significant side effects. Okay to treat. Wallace Prado MD 12/08/2024 Last dose of chemo. PET scan in late 02/2025 Bone marrow biopsy mid 02/2025 ([facility] per patient request) F/u in mid 03/2025 to review above test results. Continue port flushes. Wallace Prado M.D. [facility] [address] [place] [address] documented in this encounterAdena Pike Medical Center09-11-2025 Instructions* Patient Instructions* Wallace Prado MD - 12/08/2024 11:15 AM EDT Okay to treat. Wallace Prado MD 12/08/2024 Last dose of chemo. PET scan in late 02/2025 Bone marrow biopsy mid 02/2025 ([facility]) F/u in mid 03/2025. Continue port flushes. documented in this encounterAdena Pike Medical Center08-29-2025 History of Present illness Narrative* Lisa Reyes RN - 11/25/2024 2:30 PM EDT Patient presents for Fulphila injection as scheduled. Injection administered into Left upper arm SQtissue without incident and patient tolerated well. Site covered with band aid. 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 Pt relayed he is tired at times but otherwise managing well; supportive family. Pt utilizing [employer]. Pt does not endorse any current needs; opportunity provided to ask questions, pt does not endorse any at this time, lead technical writer available & following. documented in this encounterAdena Pike Medical Center08-28-2025 History of Present illness Narrative* Nahomy Patel RN - 11/24/2024 8:30 AM EDT Patient is here for opdivo, AVD infusions as scheduled. He reports he is tolerating treatment well with minimal side effects. Labs and VS reviewed and OK for treatment. Port accessed under sterile procedure with brisk blood return verified and line flushes with ease. NS initiated as mainline at [facility]. Premedicated with PO tylenol and po benedryl given. IVPB aloxi/dexamethasone given over 15 minutes. Line flushed. Opdivo infused over 60 minutes without incident. Line flushed. NS wide open offpump. Adriamycin administered IVP per protocol with frequent blood return checks. Velban infused over 10 minutes. Line flushed, followed by DTIC over 30 minutes without incident. Line flushed. Port flushed via push/pause method, saline locked, de-accessed and site covered with band aid. Treatment calendar reviewed. Patient discharged in stable condition to our facility transporter. documented in this encounterAdena Pike Medical Center08-27-2025 History of Present illness Narrative* Frank Morley RN - 11/23/2024 11:00 AM EDT Port draw complete per protocol. documented in this encounterAdena Pike Medical Center08-15-2025 History of Present illness Narrative* Elizabeth Burton RN - 11/11/2024 2:00 PM EDT Injection given per order and site covered with a band aid. Pt left in stable condition. documented in this encounterAdena Pike Medical Center08-14-2025 History of Present illness Narrative* Frank Morley RN - 11/10/2024 10:00 AM EDT Patient is here for opdivo, AVD infusions as scheduled. He reports he is tolerating treatment well with minimal side effects. Labs and VS reviewed and OK for treatment. Port accessed under sterile procedure with brisk blood return verified and line flushes with ease. NS initiated as mainline at [facility]. Premedicated with PO tylenol and benadryl. IVPB aloxi/dexamethasone given over 15 minutes. Line flushed. Opdivo infused over 60 minutes without incident. Line flushed. NS wide open off pump. Adriamycin administered IVP per protocol with frequent blood return checks. Velban infused over 10 minutes. Line flushed, followed by DTIC over 30 minutes without incident. Line flushed. Port flushed via push/pause method, saline locked, de-accessed and site covered with band aid. Treatment calendar reviewed. Patient discharged in stable condition to our facility transporter. documented in this encounterAdena Pike Medical Center08-13-2025 History of Present illness Narrative* Lisa Reyes RN - 11/09/2024 11:30 AM EDT Port Draw completed per protocol documented in this encounterAdena Pike Medical Center08-08-2025 History of Present illness Narrative* Elizabeth Burton RN - 11/04/2024 9:27 AM EDT The patient is here for follow up Dr Prado recommends: F/u in 6 weeks. PET early 01/2025. Bone marrow biopsy late 12/2024 Appt made and will be given to patient a next appt documented in this encounterAdena Pike Medical Center08-08-2025 History of Present illness Narrative* Wallace Prado MD - 11/04/2024 8:45 AM EDT Images from the original note were not included. [facility] Rajendra Manrique M.D. Aimee Anderson M.D. Fili Bolanos M.D. Briseida Sena M.D. Chantale Melvin, [facility] Morales Joseph, [facility] Gaal Trotter, [facility] Angelika Jones, [facility] ROSIBEL Javier M.D. Santiago Nicolas M.D. Dale Bro M.D. Brandon Banuelos M.D. Alysa Major, [facility] Carmen Park, [facility] Jennifer Eaton, [facility] Parul Esteves, [facility] PROGRESS NOTE 11/04/24 History of present illness: The patient is a 67 y.o. male Who presented to [facility] due to some new worsening shortness of breath over the last 2 days. He was transferred to [facility] for further workup. Patient had noted [...] show any malignant cells at this time. Lisa had pleural fluid drained, which did not [...] diarrhea profound fatigue and declined performance status. PET scan 04/2024 showed evidence of disease progression, biopsy with a bone marrow confirmed persistent classical Hodgkin's lymphoma PET 08/2024 after 3 rounds of Opdivo/AVD showed complete response Interval History: The patient received 1st dose of AVD/brentuximab 08/2023, treatment was complicated with norovirus infection and significant diarrhea. Treatment was changed back to brentuximab only. Before AVD treatment, he was able to walk up steps gaining weight, after the diarrhea and hospitalization he is back to walking with a walker again. The patient's last dose of brentuximab was the end of 01/17/24. PET scan showed residual activity in the bone, biopsy came back negative for malignancy. He repeated PETscan again April 2024, showed disease progression, biopsy confirmed persistent classical Hodgkin's lymphoma in the bone marrow. The patient is due for C5D15 Opdivo /AVD, continue to tolerate treatment very well. No significant nausea. After Eliquis dose was decreased to 2.5 mg twice a day, he has no further bleeding from his nose. No new constitutional symptoms. Breathing is normal. He is able to ambulate with walker. No significant change of peripheral neuropathies. He is currently taking gabapentin 300 mg 3 times a day. Objective Physical Examination: Vitals: BP 125/73 Pulse 95 Temp 36.3 C (97.4 F) (Oral) Resp 16 Ht 183 cm (6' 0.05 ) Wt 106.9 kg (235 lb 9.6 oz) SpO2 94% BMI 31.91 kg/m Physical Exam Constitutional: General: He is [...] total) by mouth in the morning., Disp: ,Rfl: apixaban (ELIQUIS) 5 mg tablet, Take 0.5 tablets (2.5 mg total) by mouth in the morning and 0.5 tablets (2.5 mg total) before bedtime., Disp: , Rfl: atorvastatin (LIPITOR) 20 mg tablet, Take 1 tablet (20 mg total) by mouth in the morning., Disp: , Rfl: B complex-vitamin C-folic acid (NEPHROCAP) 1 mg capsule, Take 1 capsule by mouth in the morning., Disp: , Rfl: bumetanide (BUMEX) 2 mg tablet, Take 1 tablet (2 mg total) by mouth daily as needed (for swelling)., Disp: , Rfl: calcium carbonate (OS-SARAH BETH) 600 mg elemental (1,500 mg) tablet, Take 1 tablet (600 mg total) by mouth daily with breakfast., Disp: , Rfl: dexAMETHasone (DECADRON) 4 mg tablet, Take 2 tablets (8 mg) by mouth once daily on days 2, 3, 4 and16, 17,18., Disp: 40 tablet, Rfl: 2 digoxin (LANOXIN) 250 mcg tablet, Take 1 tablet (250 mcg total) by mouth in the morning., Disp: , Rfl: docusate sodium (COLACE) 100 mg capsule, Take 1 capsule (100 mg total) by mouth in the morning and 1 capsule (100 mg total) before bedtime., Disp: , Rfl: famotidine (PEPCID) 40 mg/5 mL (8 mg/mL) suspension, Take 2.5 mL (20 mg total) by mouth in the morning and 2.5 mL (20 mg total) before bedtime., Disp: , Rfl: gabapentin (NEURONTIN) 300 mg capsule, Take 1 capsule (300 mg total) by mouth 3 (three) times a day., Disp: 90 capsule, Rfl: 1 ibuprofen (ADVIL,MOTRIN) 200 mg tablet, Take 1 tablet (200 mg total) by mouth every 6 (six) hours as needed for pain., Disp: , Rfl: loratadine (CLARITIN REDITABS) 10 mg disintegrating tablet, Dissolve 1 tablet (10 mg total) on tongue in the morning., Disp: , Rfl: magnesium oxide (MAGOX) 400 mg tablet, Take 1 tablet (400 mg total) by mouth in the morning., Disp:30 tablet, Rfl: 6 metoprolol succinate XL (TOPROL XL) 25 mg [...] or vomiting., Disp: 60 tablet, Rfl: 2 potassium chloride (KLOR-CON M 20) 20 MEQ CR tablet, Take 1 tablet (20 mEq total) by mouth in the morning and 1 tablet (20 mEq total) before bedtime. Plan to stop the potassium supplementation once diarrhea has resolved.., Disp: 60 tablet, Rfl: 6 DM/p-ephed/acetaminoph/doxylam (NYQUIL D ORAL), Take by mouth as needed. 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 Paroxysmal atrial fibrillation on Eliquis, reduced dose due to recurrent epistaxis Mr. Haywood is a 67 y.o. male with recent diagnosis of classic Hodgkin's lymphoma. The patient's path was reviewed at [facility], the tumor was deemed to be EBV positive, immunohistochemistry staining is consistent with Hodgkin's lymphoma. The tumors are CD15, CD30 GATA3 and Charlo positive. These tumors are negative for all other markers tested. Patient has a normal CD4: CD8 ratio. His CT scan after 1 dose of brentuximab already show improvement in retroperitoneal and mediastinallymph node. C3 day 1 brentuximab/ABD, treatment was [...] in the abdomen. Due to worsening neuropathy, His last dose of brentuximab treatment was in December 2023. PET scan 01/2024 showed mediastinal lymph node and intra-abdominal lymph nodes all improved in sizeand activity except subcarinal lymph node decreased in size increase in activity with SUV of 9. He has new onset FDG uptake in right 10th rib, L2 and left greater than right initial tuberosity. Biopsy of the left hip lesion came back negative for residual disease. Repeat PET scan 05/2024 showed worsening bony lesions, there is progression of multifocal hypermetabolic disease. There is multifocal bone activity which looks increased in extent and distribution. There is increase in hypermetabolic lymphadenopathy with dominant subcarinal mass, mild right axillary and supraclavicular disease There is mild multifocal liver activity which looks new. There is suggestion of right pleural disease at the right lung base. There are small lung nodules which looks new but do not demonstrate abnormal metabolic activity/uptake. The patient has biopsy-proven disease progression with bone marrow involvement. Labs are adequate to proceed with nivolumab. Check echocardiogram to evaluate ejection fraction before anthracycline exposure again. Ejection fraction is 55% from outside hospital. After 3 months of Opdivo/AVD treatment, PET scan showed complete response. Overall he has been tolerating well without significant side effects. Continue current treatment follow-up in 6-8 weeks to assess tolerance. The patient will need post treatment PET scan and bone marrow biopsy again to assess his disease status at the end. Monitor neuropathy closely. F/u in 6 weeks. PET early 01/2025. Bone marrow biopsy late 12/2024 Wallace Prado M.D. [facility] [address] [place] [address] documented in this encounterA[facility] Instructions* Patient Instructions* Wallace Prado MD - 11/04/2024 8:45 AM EDT F/u in 6 weeks. PET early 01/2025. Bone marrow biopsy late 12/2024 documented in this encounterAdena [facility]08-01-[facility] History of Present illness Narrative* Мария Del Rosario RN - 10/28/2024 12:00 PM EDT Injection given per order and site covered with a band aid. Pt left in stable condition. documented in this encounterAdena [facility]07-31-2025 History of Present illness Narrative* Nahomy Patel RN - 10/27/2024 9:00 AM EDT Patient is here for opdivo, AVD infusions as scheduled. He reports he is tolerating treatment well with minimal side effects. Labs and VS reviewed and OK for treatment. Port accessed under sterile procedure with brisk blood return verified and line flushes with ease. NS initiated as mainline at [facility]. Premedicated with PO tylenol and po benedryl given. IVPB aloxi/dexamethasone given over 15 minutes. Line flushed. Opdivo infused over 60 minutes without incident. Line flushed. NS wide open offpump. Adriamycin administered IVP per protocol with frequent blood return checks. Velban infused over 10 minutes. Line flushed, followed by DTIC over 30 minutes without incident. Line flushed. Port flushed via push/pause method, saline locked, de-accessed and site covered with band aid. Treatment calendar reviewed. Patient discharged in stable condition to our facility transporter. documented in this encounterAdena [facility]07-30-2025 History of Present illness Narrative* Frank Morley RN - 10/26/2024 11:00 AM EDT Port draw complete per protocol. documented in this encounterAdena [facility]07-28-2025 NoteUT Cardiology - [facility] Subjective Torsten Haywood is a 68 y.o. year old male patient here for a 6 month follow up appointment. Patient states he is SOB, fatigue, numbness in his feet Patient denies chest pain, leg swelling, dizziness. Patient states he is having chemo treatment for hodgkin lymphoma. 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 He is a 68-year-old man with prior history of coronary artery [...] admitted to the emergency room at [facility] with shortness of breath. Following investigations and transfer to [facility] he was found to have [...] device check. He was evaluated by Dr. Carlos Bartlett in clinic. He has been maintained on amiodarone. Currently he has been undergoing chemotherapy. He is planned to finish the chemotherapeutic treatment in November 2024. He previously had issues with epistaxis but not anymore. He is currently on Eliquis 2.5 mg twice daily. He reports that he has been feeling very tired and fatigued after being on chemotherapy. He denies chest pain. He has shortness of breath on exertion NYHA class II symptoms. No significant lower extremity edema. Review of Systems Constitutional: Positive for malaise/fatigue. Cardiovascular: Positive for dyspnea on exertion. Respiratory: Positive for shortness of breath. Hematologic/Lymphatic: Bruises/bleeds easily. Neurological: Positive for light-headedness. All other systems reviewed and are negative. Objective Visit Vitals BP 117/84 (BP Location: Left arm, Patient Position: Sitting) Pulse 94 Ht 1.854 m (6' 1 ) Wt 107 kg (235 lb) SpO2 97% BMI 31.00 kg/m??? Smoking Status Never BSA 2.35 m??? Physical Exam Constitutional: Appearance: He is [...] is no distension. Palpations: Abdomen is soft. Tende (more content not included)...[facility] 10-14-2024 History of Present illness Narrative* Nahomy Patel RN - 10/14/2024 12:00 PM EDT Patient is here for Fulphila injection as scheduled. Medication administered in left upper arm subcutaneous tissue. Tolerated well. Site covered with band aid. Discharged in stable condition to private vehicle. documented in this encounterAdena [facility]07-17-2025 History of Present illness Narrative* Nahomy Patel RN - 10/13/2024 9:00 AM EDT Patient is here for opdivo, AVD infusions as scheduled. He reports he is tolerating treatment well with minimal side effects. Labs and VS reviewed and OK for treatment. Port accessed under sterile procedure with brisk blood return verified and line flushes with ease. NS initiated as mainline at [facility]. Premedicated with PO tylenol and po benedryl given. IVPB aloxi/dexamethasone given over 15 minutes. Line flushed. Opdivo infused over 60 minutes without incident. Line flushed. NS wide open offpump. Adriamycin administered IVP per protocol with frequent blood return checks. Velban infused over 10 minutes. Line flushed, followed by DTIC over 30 minutes without incident. Line flushed. Port flushed via push/pause method, saline locked, de-accessed and site covered with band aid. Treatment calendar reviewed. Patient discharged in stable condition to our facility transporter. documented in this encounterAdena [facility]07-16-2025 History of Present illness Narrative* Zeina Calzada RN - 10/12/2024 11:30 AM EDT Patient presents for Port Draw. Port accessed per protocol . Flushes easily, brisk blood return noted. Labs obtained as ordered. Port flushed with NS, Saline locked, de accessed. Aware of upcoming appointment. Discharged in stable condition. documented in this encounterAdena [facility]07-03-2025 History of Present illness Narrative* Nahomy Patel RN - 09/29/2024 8:00 AM EDT Patient is here for opdivo, AVD infusions as scheduled. He reports he is tolerating treatment well with minimal side effects. Labs and VS reviewed and OK for treatment. Port accessed under sterile procedure with brisk blood return verified and line flushes with ease. NS initiated as mainline at [facility]. Premedicated with PO tylenol IVPB benadryl/dexamethasone over 15 minutes. Line flushed. Opdivo infused over 60 minutes without incident. Line flushed. NS wide open off pump. Adriamycin administered IVP per protocol with frequent blood return checks. Velban infused over 10 minutes. Line flushed, followed by DTIC over 30 minutes without incident. Line flushed. Port flushed via push/pause method, saline locked, de-accessed and site covered with band aid. Treatment calendar reviewed. Patient discharged in stable condition to our facility transporter. documented in this encounterAdena [facility]07-02-2025 History of Present illness Narrative* Sonya Reyes RN - 09/28/2024 11:00 AM EDT Port draw completed per protocol and patient tolerated well. Needle de-accessed and site covered with band aid. Echo order provided and patient discharged in stable condition to our facility transport. documented in this encounterAdena [facility]06-20-2025 History of Present illness Narrative* Elizabeth Burton RN - 09/16/2024 3:27 PM EDT Patient here to for treatment assessment Okay to treat. Wallace Prado MD 09/16/2024 F/u in 6-8 weeks. documented in this encounterAdena [facility]ike [facility] Center06-20-2025 History of Present illness Narrative* Мария Del Rosario RN - 09/16/2024 3:00 PM EDT Pt arrived ambulatory with steady gait for his fulphila injection. Injection given and he toleratedit well. Pt left with his belongings. documented in this encounterAdena [facility]ike [facility] Center06-20-2025 History of Present illness Narrative* Wallace Prado MD - 09/16/2024 2:45 PM EDT Images from the original note were not included. [facility] Rajendra Manriuqe M.D. Aimee Anderson M.D. Fili Bolanos M.D. Briseida Sena M.D. Chantale Melvin, [facility] Morales Joseph, [facility] Gala Trotter, [facility] Angelika Jones, [facility] ROSIBEL Javier M.D. Sydnie Oviedo M.D. Brandon Banuelos M.D. Alysa Major, [facility] Carmen Park, [facility] Jennifer Eaton, [facility] Parul Esteves, [facility] PROGRESS NOTE 09/16/24 History of present illness: The patient is a 67 y.o. male Who presented to [facility] due to some new worsening shortness of breath over the last 2 days. He was transferred to [facility] for further workup. Patient had noted [...] show any malignant cells at this time. Lisa had pleural fluid drained, which did not [...] diarrhea profound fatigue and declined performance status. PET scan 04/2024 showed evidence of disease progression, biopsy with a bone marrow confirmed persistent classical Hodgkin's lymphoma PET 08/2024 after 3 rounds of Opdivo/AVD showed complete response Interval History: The patient received 1st dose of AVD/brentuximab 08/2023, treatment was complicated with norovirus infection and significant diarrhea. Treatment was changed back to brentuximab only. Before AVD treatment, he was able to walk up steps gaining weight, after the diarrhea and hospitalization he is back to walking with a walker again. The patient's last dose of brentuximab was the end of 01/17/24. PET scan showed residual activity in the bone, biopsy came back negative for malignancy. He repeated PETscan again April 2024, showed disease progression, biopsy confirmed persistent classical Hodgkin's lymphoma in the bone marrow. The patient is status post 3 months of Opdivo /AVD very well. No significant nausea. Complains about insomnia from Decadron. After Eliquis dose was decreased no further bleeding from his nose. No newconstitutional symptoms. Breathing is normal. He is able to ambulate with walker. No significant peripheral neuropathies. He has shortness of breath from time to time. He is currently taking gabapentin 300 mg 3 times a day for neuropathies has not noted any significant change. Objective Physical Examination: Vitals: BP 109/73 Pulse 75 Temp 36.5 C (97.7 F) (Oral) Resp 16 Ht 183 cm (6' 0.05 ) Wt 106 kg (233 lb 9.6 oz) SpO2 93% BMI 31.64 kg/m Physical Exam Constitutional: General: He is [...] total) by mouth in the morning., Disp: ,Rfl: apixaban (ELIQUIS) 5 mg tablet, Take 0.5 tablets (2.5 mg total) by mouth in the morning and 0.5 tablets (2.5 mg total) before bedtime., Disp: , Rfl: atorvastatin (LIPITOR) 20 mg tablet, Take 1 tablet (20 mg total) by mouth in the morning., Disp: , Rfl: B complex-vitamin C-folic acid (NEPHROCAP) 1 mg capsule, Take 1 capsule by mouth in the morning., Disp: , Rfl: bumetanide (BUMEX) 2 mg tablet, Take 1 tablet (2 mg total) by mouth daily as needed (for swelling)., Disp: , Rfl: calcium carbonate (OS-SARAH BETH) 600 mg elemental (1,500 mg) tablet, Take 1 tablet (600 mg total) by mouth daily with breakfast., Disp: , Rfl: dexAMETHasone (DECADRON) 4 mg tablet, Take 2 tablets (8 mg) by mouth once daily on days 2, 3, 4 and16, 17,18., Disp: 40 tablet, Rfl: 2 digoxin (LANOXIN) 250 mcg tablet, Take 1 tablet (250 mcg total) by mouth in the morning., Disp: , Rfl: DM/p-ephed/acetaminoph/doxylam (NYQUIL D ORAL), Take by mouth as needed., Disp: , Rfl: docusate sodium (COLACE) 100 mg capsule, Take 1 capsule (100 mg total) by mouth in the morning and 1 capsule (100 mg total) before bedtime., Disp: , Rfl: famotidine (PEPCID) 40 mg/5 mL (8 mg/mL) suspension, Take 2.5 mL (20 mg total) by mouth in the morning and 2.5 mL (20 mg total) before bedtime., Disp: , Rfl: gabapentin (NEURONTIN) 300 mg capsule, Take 1 capsule (300 mg total) by mouth 3 (three) times a day., Disp: 90 capsule, Rfl: 1 ibuprofen (ADVIL,MOTRIN) 200 mg tablet, Take 1 tablet (200 mg total) by mouth every 6 (six) hours as needed for pain., Disp: , Rfl: loratadine (CLARITIN REDITABS) 10 mg disintegrating tablet, Dissolve 1 tablet (10 mg total) on tongue in the morning., Disp: , Rfl: magnesium oxide (MAGOX) 400 mg tablet, Take 1 tablet (400 mg total) by mouth in the morning., Disp:30 tablet, Rfl: 6 metoprolol succinate XL (TOPROL XL) 25 mg [...] or vomiting., Disp: 60 tablet, Rfl: 2 potassium chloride (KLOR-CON M 20) 20 MEQ CR tablet, Take 1 tablet (20 mEq total) by mouth in the morning and 1 tablet (20 mEq total) before bedtime. Plan to stop the potassium supplementation once diarrhea has resolved.., Disp: 60 tablet, Rfl: 6 prochlorperazine (COMPAZINE) 10 mg tablet, Take 1 tablet by mouth every 6 hours as needed for mild nausea or vomiting. (Patient not taking: Reported on 09/16/2024), Disp: 60 tablet, Rfl: 2 No current facility-administered medications for this visit. 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 Paroxysmal atrial fibrillation on Eliquis, reduced dose due to recurrent epistaxis Mr. Haywood is a 67 y.o. male with recent diagnosis of classic Hodgkin's lymphoma. The patient's path was reviewed at [facility], the tumor was deemed to be EBV positive, immunohistochemistry staining is consistent with Hodgkin's lymphoma. The tumors are CD15, CD30 GATA3 and Charlo positive. These tumors are negative for all other markers tested. Patient has a normal CD4: CD8 ratio. His CT scan after 1 dose of brentuximab already show improvement in retroperitoneal and mediastinallymph node. C3 day 1 brentuximab/ABD, treatment was [...] in the abdomen. Due to worsening neuropathy, His last dose of brentuximab treatment was in December 2023. PET scan 01/2024 showed mediastinal lymph node and intra-abdominal lymph nodes all improved in sizeand activity except subcarinal lymph node decreased in size increase in activity with SUV of 9. He has new onset FDG uptake in right 10th rib, L2 and left greater than right initial tuberosity. Biopsy of the left hip lesion came back negative for residual disease. Repeat PET scan 05/2024 showed worsening bony lesions, there is progression of multifocal hypermetabolic disease. There is multifocal bone activity which looks increased in extent and distribution. There is increase in hypermetabolic lymphadenopathy with dominant subcarinal mass, mild right axillary and supraclavicular disease There is mild multifocal liver activity which looks new. There is suggestion of right pleural disease at the right lung base. There are small lung nodules which looks new but do not demonstrate abnormal metabolic activity/uptake. The patient has biopsy-proven disease progression with bone marrow involvement. Labs are adequate to proceed with nivolumab. Check echocardiogram to evaluate ejection fraction before anthracycline exposure again. Ejection fraction is 55% from outside hospital. After 3 months of Opdivo/AVD treatment, PET scan showed complete response. Overall he has been tolerating well without significant side effects. Continue current treatment follow-up in 6-8 weeks to assess tolerance. The patient will need post treatment PET scan and bone marrow biopsy again to assess his disease status at the end. Monitor neuropathy closely. Wallace Prado M.D. [facility] [address] [place], [place] [address], [place] [address] documented in this [facility]06-20-2025 Instructions* Patient Instructions* Wallace Prado MD - 09/16/2024 2:45 PM EDT Okay to treat. Wallace Prado MD 09/16/2024 F/u in 6-8 weeks. documented in this encounterAdena [facility]06-19-2025 History of Present illness Narrative* Elizabeth Burton RN - 09/15/2024 11:00 AM EDT The patient is here for Opdivo, AVD The patient seen Dr Prado and Dr Prado was ok to treat Toxicity check completed with [facility] WNL, patient denies side effects Port accessed per protocol with brisk blood return noted Premeds given via IVPB Opdivo started and infused over 60 min Adriamycin admin over IVP per protocol with frequent blood return checks Followed by Velban infusion over 10 minutes The patient tolerated treatment well DTIC infused over 30 min without complication Port flushed per protocol for de-access Calendar given and patient discharged in stable condition documented in this encounterAdena [facility]06-17-2025 History of Present illness Narrative* Frank Morley RN - 09/13/2024 11:00 AM EDT Port draw complete per protocol. documented in this encounterAdena [facility]06-06-2025 History of Present illness Narrative* Elizabeth Burton RN - 09/02/2024 1:00 PM EDT The patient is here for Fulphila injection Vitals are WNL Patient denies side effects from yesterday's treatment Fulphila injection admit sub q Patient tolerated well Patient discharged home in stable condition documented in this encounterAdena [facility]06-[facility]-2025 History of Present illness Narrative* Sonya Reyes RN - 09/01/2024 9:00 AM EDT Patient here for opdivo, AVD infusions as scheduled. He reports he is tolerating treatment well with minimal side effects. Only complaint was insomnia at night d/t steroid. Reports increased endurance, feeling stronger, and only walking with a cane. Labs and VS reviewed and OK for treatment. Port accessed under sterile procedure with brisk blood return verified and line flushes with ease. NS initiated as mainline at KVO rate. Premedicated with PO tylenol IVPB benadryl/dexamethasone over 15 minutes. Line flushed. Opdivo infused over 60 minutes without incident. Line flushed. NS wide open off pump. Adriamycin administered IVP per protocol with frequent blood return checks. Velban infused over10 minutes. Line flushed, followed by DTIC over 30 minutes without incident. Line flushed. Port flushed via push/pause method, saline locked, de-accessed and site covered with band aid. Treatment calendar reviewed as patient states he has August. Patient discharged in stable [facility]. [facility] encounterA[facility] History of Present illness Narrative* Nahomy Patel RN - 08/24/2024 11:53 AM EDT Images from the original note were not included. Spoke with avni, verbalized understanding. MD Nahomy Molina RN [facility] sent. Previous Messages ----- Message ----- From: Nahomy Patel RN Sent: 08/23/2024 11:57 AM EDT To: Wallace Prado MD Subject: respiratory infection He received treatment last week. Starting on Thursday he had a scratchy throat. Has progressed to bronchitis with a cough and congestion. He is bringing up mucous but unsure of color. Denies fevers or shortness of breath. He tried dayquil. His treatment is not until next week. Any other orders? documented in this encounterA[facility] History of Present illness Narrative* Lisa Reyes RN - 08/16/2024 1:30 PM EDT Patient presents for Port Draw Port accessed per protocol Flushes easily without blood return noted Unable to obtain blood return with interventions such as additional flushing and patient positionalchanges Cathflo administered; after indwelling time of 45 minutes, blood return is present and ordered labsobtained Port flushed with push/pause method prior to de-access and patient tolerates well DC in stable condition to [employer] vehicle documented in this encounterA[facility] History of Present illness Narrative* Elizabeth Burton RN - 08/05/2024 1:30 PM EDT The patient is here for Fulphila injection Vitals are WNL Patient denies side effects from yesterday's treatment Fulphila injection admit sub q Patient tolerated well Patient discharged home in stable condition documented in this encounterAdena [facility]05-[facility] History of Present illness Narrative* DIA Cueto - 08/04/2024 1:12 PM EDT Pleasant pt easily engages with lead technical writer. Pt using quad cane, had been using walker. Pt relayed he has been feeling/doing well. Pt purchased a pedal archery equipment repairer & has been using daily. Pt expressed appreciation for use of [employer] services. Pt does not endorse any current needs; opportunity provided to ask questions, pt does not endorse any at this time, lead technical writer available & following. documented in this encounterAden[facility]05-08-[facility] History of Present illness Narrative* Frank Morley RN - 08/04/2024 10:00 AM EDT Pt here for C2D1 opdivo, AVD as scheduled. Pt reports he tolerated C1 well with minimal side effects. Only complaint was insomnia at night d/t steroid. Reports increased endurance, feeling stronger, and only walking with a cane. Labs and VS reviewed and OK for treatment. Port accessed per protocol.Brisk blood return verified. Flushes with ease. NS started at KVO. Premedicated with PO tylenol and benadryl, IVPB dec/aloxi over 15 minutes. Line flushed. Opdivo infused over 60 minutes. Line flushed. NS wide open off pump. Adriamycin administered IVP per protocol with frequent blood return checks. Velban infused over 10 minutes. Line flushed. Followed by Velban infusion over 10 minutes. Line flushed, followed by DTIC over 30 minutes withoutincident. Line flushed. Port flushed and de accessed per protocol. Band aide applied. Pt dc'd in stable ambulatory condition. documented in this encounterAden[facility]05-06-[facility] History of Present illness Narrative* Frank Morley RN - 08/02/2024 11:00 AM EDT Port draw complete per protocol. documented in this encounterAdena [facility]04-25-2025 History of Present illness Narrative* Zeina Calzada RN - 07/22/2024 2:30 PM EDT Patient presents for Fulphila injection. Education provided. Fulphila injection administered SQ to right arm. Tolerated well. Appointment calendar provided. Discharged in stable condition to transportation. documented in this encounterAdena [facility]04-24-2025 History of Present illness Narrative* Sonya Reyes RN - 07/21/2024 11:04 AM EDT Patient is here in follow up for Hodgkin lymphoma with Dr. Prado. OK to proceed with full treatment today. Continue to follow up as planned. Patient discharged in stable condition to [facility] for treatment. Treatment calendar updated with new follow up appointment and provided to patient. documented in this encounterAdena [facility]04-24-2025 History of Present illness Narrative* DIA Cueto - 07/21/2024 10:44 AM EDT Met with pt & his sister in law Avni. Pt relayed he has used [employer], currently using [employer]. Educated on [employer], reviewed brochure, pt said he would be over income. Provided [employer]. Pt does not endorse any current needs/concerns. Opportunity provided to ask questions, pt does not endorse any at this time; lead technical writer available & following. documented in this encounterAdena [facility]04-24-2025 History of Present illness Narrative* Elizabeth Burton RN - 07/21/2024 10:30 AM EDT The patient is here for Opdivo, AVD The patient seen Dr Prado and Dr Prado was ok to treat Toxicity check completed with [facility] WNL, patient denies side effects Port accessed per protocol with brisk blood return noted Premeds given via IVPB Opdivo started and infused over 60 min Adriamycin admin over IVP per protocol with frequent blood return checks Followed by Velban infusion over 10 minutes The patient tolerated treatment well DTIC infused over 30 min without complication Port flushed per protocol for de-access Calendar given and patient discharged in stable condition documented in this encounterAdena [facility] Center04-24-2025 History of Present illness Narrative* Wallace Prado MD - 07/21/2024 10:15 AM EDT Images from the original note were not included. [facility] Rajendra Manrique M.D. Aimee Anderson M.D. Fili Bolanos M.D. Briseida Sena M.D. Chantale Melvin, [facility] Morales Joseph, [facility] Gala Trotter, [facility] Angelika Jones, [facility] ROSIBEL Javier M.D. Santiago Nicolas M.D. Dale Bro M.D. Brandon Banuelos M.D. Alysa Major, [facility] Carmen Xavier, [facility] Jennifer Eaton, [facility] Parul Esteves, [facility] PROGRESS NOTE 07/21/24 History of present illness: The patient is a 67 y.o. male Who presented to [facility] due to some new worsening shortness of breath over the last 2 days. He was transferred to [facility] for further workup. Patient had noted [...] show any malignant cells at this time. [facility] had pleural fluid drained, which did not [...] diarrhea profound fatigue and declined performance status. PET scan 04/2024 showed evidence of disease progression, biopsy with a bone marrow confirmed persistent classical Hodgkin's lymphoma Interval History: The patient received 1st dose of AVD/brentuximab 08/2023, treatment was complicated with norovirus infection and significant diarrhea. Treatment was changed back to brentuximab only. Before AVD treatment, he was able to walk up steps gaining weight, after the diarrhea and hospitalization he is back to walking with a walker again. The patient's last dose of brentuximab was the end of 01/17/24. PET scan showed residual activity in the bone, biopsy came back negative for malignancy. He repeated PETscan again April 2024, showed disease progression, biopsy confirmed persistent classical Hodgkin's lymphoma in the bone marrow. He was started on Opdivo 2 weeks ago, overall tolerated well. No significant side effects. After Eliquis dose was decreased no further bleeding from his nose. No new constitutional symptoms. Breathing is normal. He is able to ambulate with walker. He has shortness of breath from time to time. Objective Physical Examination: Vitals: BP 137/88 Pulse 77 Temp 36.4 C (97.5 F) (Oral) Resp 16 Ht 183 cm (6' 0.05 ) Wt 102.4 kg (225 lb 12.8 oz) SpO2 96% BMI 30.58 kg/m Physical Exam Constitutional: General: He is [...] total) by mouth in the morning., Disp: ,Rfl: apixaban (ELIQUIS) 5 mg tablet, Take 0.5 tablets (2.5 mg total) by mouth in the morning and 0.5 tablets (2.5 mg total) before bedtime., Disp: , Rfl: atorvastatin (LIPITOR) 20 mg tablet, Take 1 tablet (20 mg total) by mouth in the morning., Disp: , Rfl: B complex-vitamin C-folic acid (NEPHROCAP) 1 mg capsule, Take 1 capsule by mouth in the morning., Disp: , Rfl: bumetanide (BUMEX) 2 mg tablet, Take 1 tablet (2 mg total) by mouth daily as needed (for swelling)., Disp: , Rfl: calcium carbonate (OS-SARAH BETH) 600 mg elemental (1,500 mg) tablet, Take 1 tablet (600 mg total) by mouth daily with breakfast., Disp: , Rfl: dexAMETHasone (DECADRON) 4 mg tablet, Take 2 tablets (8 mg) by mouth once daily on days 2, 3, 4 and16, 17,18., Disp: 40 tablet, Rfl: 2 digoxin (LANOXIN) 250 mcg tablet, Take 1 tablet (250 mcg total) by mouth in the morning., Disp: , Rfl: docusate sodium (COLACE) 100 mg capsule, Take 1 capsule (100 mg total) by mouth in the morning and 1 capsule (100 mg total) before bedtime., Disp: , Rfl: gabapentin (NEURONTIN) 300 mg capsule, Take 1 capsule (300 mg total) by mouth 3 (three) times a day., Disp: 90 capsule, Rfl: 1 magnesium oxide (MAGOX) 400 mg tablet, Take 1 tablet (400 mg total) by mouth in the morning., Disp:30 tablet, Rfl: 6 metoprolol succinate XL (TOPROL XL) 25 mg [...] or vomiting., Disp: 60 tablet, Rfl: 2 prochlorperazine (COMPAZINE) 10 mg tablet, Take 1 tablet by mouth every 6 hours as needed for mild nausea or vomiting., Disp: 60 tablet, Rfl: 2 idmbvnpel-lrebcgyxuhifwfm-lalpwkov-magnesium hydroxide-simethicone CMPD (MAGIC MOUTHWASH), Swish and spit 5 mL 4 (four) times a day as needed for mouth/gum irritation. (Patient not taking: Reported on 07/21/2024), Disp: 250 mL, Rfl: 1 melatonin 3 mg capsule, Take 3 mg by mouth nightly as needed. (Patient not taking: Reported on 01/28/2024), Disp: , Rfl: potassium chloride (KLOR-CON M 20) 20 MEQ CR tablet, Take 1 tablet (20 mEq total) by mouth in the morning and 1 tablet (20 mEq total) before bedtime. Plan to stop the potassium supplementation once diarrhea has resolved.. 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 Paroxysmal atrial fibrillation on Eliquis, reduced dose due to recurrent epistaxis Mr. Haywood is a 67 y.o. male with recent diagnosis of classic Hodgkin's lymphoma. The patient's path was reviewed at [facility], the tumor was deemed to be EBV positive, immunohistochemistry staining is consistent with Hodgkin's lymphoma. The tumors are CD15, CD30 GATA3 and Charlo positive. These tumors are negative for all other markers tested. Patient has a normal CD4: CD8 ratio. His CT scan after 1 dose of brentuximab already show improvement in retroperitoneal and mediastinallymph node. C3 day 1 brentuximab/ABD, treatment was [...] in the abdomen. Due to worsening neuropathy, His last dose of brentuximab treatment was in December 2023. PET scan 01/2024 showed mediastinal lymph node and intra-abdominal lymph nodes all improved in sizeand activity except subcarinal lymph node decreased in size increase in activity with SUV of 9. He has new onset FDG uptake in right 10th rib, L2 and left greater than right initial tuberosity. Biopsy of the left hip lesion came back negative for residual disease. Repeat PET scan 05/2024 showed worsening bony lesions, there is progression of multifocal hypermetabolic disease. There is multifocal bone activity which looks increased in extent and distribution. There is increase in hypermetabolic lymphadenopathy with dominant subcarinal mass, mild right axillary and supraclavicular disease There is mild multifocal liver activity which looks new. There is suggestion of right pleural disease at the right lung base. There are small lung nodules which looks new but do not demonstrate abnormal metabolic activity/uptake. The patient has biopsy-proven disease progression with bone marrow involvement. Labs are adequate to proceed with nivolumab. Check echocardiogram to evaluate ejection fraction before anthracycline exposure again. If his EF is adequate, proceed with Opdivo/AVD today followed by Alana bush otherwise today he will only get Opdivo. Follow-up in a month to assess tolerance. Plan to obtain PET scan in 2 months end of 08/2024 Addendum: Ejection fraction June 2024 is 50-55 % Wallace Prado M.D. [facility] [address] [place] [address] documented in this encounterAdena [facility] Center04-10-2025 History of Present illness Narrative* Sonya Reyes RN - 07/07/2024 9:41 AM EDT Patient is here in follow up for lymphoma, to review BMB with Dr. Prado and plans to start Odivo withAVD. Per Dr. Prado, patient OK to start Opdivo only today as patient is not mentally prepared to start full treatment today. He also reported being SOB due to pleural effusion. Patient will need to have Echo completed MARCOS also since he is overdue. She will see patient back in 2 weeks to assess perfor nadeen status to proceed with full treatment at that time, or continue with Opdivo alone. Treatment calendar provided. Discharged to infusion bay for treatment. documented in this encounterAdena [facility]04-10-2025 History of Present illness Narrative* Nahomy Patel RN - 07/07/2024 9:30 AM EDT Patient is here for C1 opdivo. He saw Dr. Prado today. Orders received to proceed with opdivo only and hold AVD. He is not ready to start it. Had his nose cauterized and having some shortness of breath. He is continue to have numbness and tingling caused from his past brentuximab. Teaching completed on opdivo. [employer] info discussed. Patient verbalized understanding on side effects. Consent signed. Labs and treatment calendar reviewed and copy provided. Echo ordered and will schedule at [facility] to next treatment. Port accessed per protocol. NS started at KVO. IV premeds given and po benedryl. HE took 1000 mg of tylenol at home at 7 am so tylenol held at [facility]. Opdvio infused over one h our. Patient tolerated it well. Port flushed and needle removed. Discharge instructions reviewed. Patient discharged in stable condition. documented in this encounterAdena [facility]04-10-2025 History of Present illness Narrative* Wallace Prado MD - 07/07/2024 9:00 AM EDT Images from the original note were not included. [facility] Rajendra Manrique M.D. Aimee Anderson M.D. Fili Bolanos M.D. Briseida Sena M.D. Chantale Melvin, [facility] Morales Joseph, [facility] Gala Trotter, [facility] Angelika Jones, [facility] ROSIBEL Javier M.D. Santiago Nicolas M.D. Dale Bro M.D. Brandon Banuelos M.D. Alysa Major, [facility] Carmen Park, [facility] Jennifer Eaton, [facility] Parul Esteves, [facility] PROGRESS NOTE 07/07/24 History of present illness: The patient is a 67 y.o. male Who presented to [facility] due to some new worsening shortness of breath over the last 2 days. He was transferred to [facility] for further workup. Patient had noted [...] show any malignant cells at this time. Healso had pleural fluid drained, which did not [...] diarrhea profound fatigue and declined performance status. PET scan 04/2024 showed evidence of disease progression, biopsy with a bone marrow confirmed persistent classical Hodgkin's lymphoma Interval History: The patient received 1st dose of AVD/brentuximab 08/2023, treatment was complicated with norovirus infection and significant diarrhea. Treatment was changed back to brentuximab only. Before AVD treatment, he was able to walk up steps gaining weight, after the diarrhea and hospitalization he is back to walking with a walker again. The patient's last dose of brentuximab was the end of 01/17/24. PET scan showed residual activity in the bone, biopsy came back negative for malignancy. He repeated PETscan again April 2024, showed disease progression, biopsy confirmed persistent classical Hodgkin's lymphoma in the bone marrow. He has been on treatment break over the past 3 months. Neuropathy remains the same.. After Eliquis dose was decreased no further bleeding from his nose. No new constitutional symptoms. Breathing is normal. He is able to ambulate with walker. He has shortness of breath from time to time. Objective Physical Examination: Vitals: BP 121/85 Pulse 109 Temp 36.3 C (97.3 F) Resp 24 Wt 103 kg (227 lb) SpO2 91% BMI 29.95 kg/m Physical Exam Constitutional: General: He is [...] total) by mouth in the morning., Disp: ,Rfl: apixaban (ELIQUIS) 5 mg tablet, Take 0.5 tablets (2.5 mg total) by mouth in the morning and 0.5 tablets (2.5 mg total) before bedtime., Disp: , Rfl: atorvastatin (LIPITOR) 20 mg tablet, Take 1 tablet (20 mg total) by mouth in the morning., Disp: , Rfl: B complex-vitamin C-folic acid (NEPHROCAP) 1 mg capsule, Take 1 capsule by mouth in the morning., Disp: , Rfl: bumetanide (BUMEX) 2 mg tablet, Take 1 tablet (2 mg total) by mouth daily as needed (for swelling)., Disp: , Rfl: calcium carbonate (OS-SARAH BETH) 600 mg elemental (1,500 mg) tablet, Take 1 tablet (600 mg total) by mouth daily with breakfast., Disp: , Rfl: dexAMETHasone (DECADRON) 4 mg tablet, Take 2 tablets (8 mg) by mouth once daily on days 2, 3, 4 and16, 17,18., Disp: 40 tablet, Rfl: 2 digoxin (LANOXIN) 250 mcg tablet, Take 1 tablet (250 mcg total) by mouth in the morning., Disp: , Rfl: docusate sodium (COLACE) 100 mg capsule, Take 1 capsule (100 mg total) by mouth in the morning and 1 capsule (100 mg total) before bedtime., Disp: , Rfl: gabapentin (NEURONTIN) 300 mg capsule, Take 1 capsule (300 mg total) by mouth 3 (three) times a day., Disp: 90 capsule, Rfl: 1 vymbicnlp-liwhnlagezockfb-ibsomrot-magnesium hydroxide-simethicone CMPD (MAGIC MOUTHWASH), Swish and spit 5 mL 4 (four) times a day as needed for mouth/gum irritation. (Patient not taking: Reported on 12/03/2023), Disp: 250 mL, Rfl: 1 magnesium oxide (MAGOX) 400 mg tablet, Take 1 tablet (400 mg total) by mouth in the morning., Disp:30 tablet, Rfl: 6 melatonin 3 mg capsule, Take 3 mg by mouth nightly as needed. (Patient not taking: Reported on 06/02/2024), Disp: , Rfl: metoprolol succinate XL (TOPROL [...] or vomiting., Disp: 60 tablet, Rfl: 2 potassium chloride (KLOR-CON M 20) 20 MEQ CR tablet, Take 1 tablet (20 mEq total) by mouth in the morning and 1 tablet (20 mEq total) before bedtime. Plan to stop the potassium supplementation once diarrhea has resolved.. (Patient not taking: Reported on 12/03/2023), Disp: 60 tablet, Rfl: 6 prochlorperazine (COMPAZINE) 10 mg tablet, Take 1 tablet by mouth every 6 hours as needed for mild nausea or vomiting., Disp: 60 tablet, Rfl: 2 No current facility-administered medications for this visit. Facility-Administered Medications Ordered in Other Visits: acetaminophen (TYLENOL EXTRA STRENGTH) tablet 1,000 mg, 1,000 mg, oral, Once, Wallace Prado MD diphenhydrAMINE (BENADRYL) injection 25 mg, 25 mg, intravenous, Q15 Min PRN, Wallace Prado MD EPINEPHrine (ADRENALIN) 1 mg/mL injection FOR ANAPHYLAXIS 0.3 mg, 0.3 mg, intramuscular, Q5 Min PRN, Wallace Prado MD methylPREDNISolone sod suc(PF) (Solu-MEDROL) injection 125 mg, 125 mg, intravenous, PRN, Wallace Prado MD nivolumab (OPDIVO) 240 mg in sodium chloride 0.9 % 100 mL chemo IVPB, 240 mg, intravenous, Once, Wallace Prado MD, Last Rate: 150 mL/hr at 07/07/24 1033, 240 mg at 07/07/24 1033 sodium chloride 0.9 % bolus, 500 mL, intravenous, PRN, Wallace Prado MD sodium chloride 0.9 % flush 20 mL, 20 mL, intravenous, PRN, Wallace Prado MD, 20 mL at 07/07/24 1007 sodium chloride 0.9 % infusion, 25 mL/hr, intravenous, Continuous PRN, Wallace Prado MD, Last Rate: 25 mL/hr at 07/07/24 1008, 25 mL/hr at 07/07/24 1008 Diagnosis Problem list: Patient Active Problem List Diagnosis Mass of lung Multifocal pneumonia Benign hypertensive cardiomyopathy with heart failure (CMS-HCC) Cardiomyopathy (CMS-HCC) Chronic systolic heart failure (CMS-HCC) Coronary atherosclerosis Factor V Leiden mutation HTN (hypertension) 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 Paroxysmal atrial fibrillation on Eliquis, reduced dose due to recurrent epistaxis Mr. Haywood is a 67 y.o. male with recent diagnosis of classic Hodgkin's lymphoma. The patient's path was reviewed at [facility], the tumor was deemed to be EBV positive, immunohistochemistry staining is consistent with Hodgkin's lymphoma. The tumors are CD15, CD30 GATA3 and Charlo positive. These tumors are negative for all other markers tested. Patient has a normal CD4: CD8 ratio. His CT scan after 1 dose of brentuximab already show improvement in retroperitoneal and mediastinallymph node. C3 day 1 brentuximab/ABD, treatment was [...] in the abdomen. Due to worsening neuropathy, His last dose of brentuximab treatment was in December 2023. PET scan 01/2024 showed mediastinal lymph node and intra-abdominal lymph nodes all improved in sizeand activity except subcarinal lymph node decreased in size increase in activity with SUV of 9. He has new onset FDG uptake in right 10th rib, L2 and left greater than right initial tuberosity. Biopsy of the left hip lesion came back negative for residual disease. Repeat PET scan 05/2024 showed worsening bony lesions, there is progression of multifocal hypermetabolic disease. There is multifocal bone activity which looks increased in extent and distribution. There is increase in hypermetabolic lymphadenopathy with dominant subcarinal mass, mild right axillary and supraclavicular disease There is mild multifocal liver activity which looks new. There is suggestion of right pleural disease at the right lung base. There are small lung nodules which looks new but do not demonstrate abnormal metabolic activity/uptake. The patient has biopsy-proven disease progression with bone marrow involvement. Labs are adequate to proceed with nivolumab. Check echocardiogram to evaluate ejection fraction before anthracycline exposure again. If his EF is adequate, proceed with Opdivo/AVD with next treatment in 2 weeks. Wallace Prado M.D. [facility] [address] [place] [address] documented in this encounterAdena Pike [facility] Center04-10-2025 Instructions* Patient Instructions* Wallace Prado MD - 07/07/2024 9:00 AM EDT Okay to treat. Wallace Prado MD 07/07/2024 F/u in 2 weeks, to start avd/Opdivo documented in this encounterAdena Pike Medical Center04-08-2025 History of Present illness Narrative* Lisa Reyes RN - 07/05/2024 12:00 PM EDT Port draw completed per protocol documented in this [facility]04-04-2025 History of Present illness Narrative* DIA Cueto - 07/01/2024 8:38 AM EDT Call received from pt sister in law [place], pt will be coming to [facility] 3x per week. Pt does not drive & sister with whom he is living works, other family not able to assist with 3x per wk transport, pt medical insurance does not cover transport services. Pt is able to independently enter/exit a vehicle. Educated on [facility] & informed lead technical writer would check drivers schedule to determine when transport services can begin. Yardage Estimator spoke with [facility] driver wheelchair & RN to adjust port draw times; [facility] Transport able to begin services Saturday 07/08. Call placed to sister in [place] & informed. documented in this [facility]03-07-2025 History of Present illness Narrative* Nahomy Patel RN - 06/03/2024 10:21 AM EST Images from the original note were not included. MD Nahomy Molina RN Biopsy first. Previous Messages ----- Message ----- From: Nahomy Patel RN Sent: 06/03/2024 8:03 AM EST To: Wallace Prado MD Are we waiting for the biopsy or start once approved? ----- Message ----- From: Wallace Prado MD Sent: 06/02/2024 7:37 PM EST To: [facility] On[facility] Nurses SHANNOND-opjayne ordered. documented in this encounterAdena Pike Medical Center03-06-2025 History of Present illness Narrative* Nahomy Patel RN - 06/02/2024 11:45 AM EST Port draw completed per protocol. documented in this [facility]03-06-2025 History of Present illness Narrative* Sonya Reyes RN - 06/02/2024 11:41 AM EST Patient is seen in follow up with Dr. Prado today for Hodgkin's Lymphoma and to review PET scan and bone bx. He is accompanied by his [id number], [facility]. Received the following orders: [facility] Flush port, CBC, CMP, ESR, PSA. F/u IN 5 weeks with port flush. Follow up scheduled on 07/07/[address] Prado. Order placed for bone biopsy to be completed at [facility]. Port draw completed today. AVS, PETscan/bone bx results and treatment calendar provided to patient. Patient discharged in stable condition to infusion nurse to have port draw completed. documented in this encounterAdena Pike Medical Center03-06-2025 History of Present illness Narrative* Wallace Prado MD - 06/02/2024 11:15 AM EST Images from the original note were not included. [facility] Rajendra Manrique M.D. Aimee Anderson M.D. Fili Bolanos M.D. Briseida Sena M.D. Chantale Melvin, [facility] Orcas Hinderfreedom, [facility] Gala Sergo, [facility] Angelika Jones, [facility] ROSIBEL Javier M.D. Santiago Nicolas M.D. Dale Bro M.D. Brandon Banuelos M.D. Alysa Major, [facility] Carmen Park, [facility] Jennifer Eaton, [facility] Parul Esteves, [facility] PROGRESS NOTE 06/02/24 History of present illness: The patient is a 67 y.o. male Who presented to [place] ER due to some new worsening shortness of breath over the last 2 days. He was transferred to [facility] for further workup. Patient had noted [...] show any malignant cells at this time. Lisa had pleural fluid drained, which did not [...] back to walking with a walker again. The patient's last dose of brentuximab was the end of 01/17/24. PET scan showed residual activity in the bone, biopsy came back negative for malignancy. He repeated PETscan again April 2024, he is here to review PET scan results. He has been on treatment break over the past 3 months. Neuropathy is slowly improving. After Eliquis dose was decreased no further bleeding from his nose. No new constitutional symptoms. Breathing isnormal. He is able to ambulate with walker. Recent history: taken from consult on 07/06/23 Objective Physical Examination: Vitals: BP 136/90 Pulse 101 Temp 36.4 C (97.5 F) (Oral) Resp 16 Ht 182.9 cm (6' 0.01 ) Wt101.9 kg (224 lb 9.6 oz) SpO2 95% BMI 30.45 kg/m Physical Exam Constitutional: General: He is [...] total) by mouth in the morning., Disp: ,Rfl: apixaban (ELIQUIS) 5 mg tablet, Take 0.5 tablets (2.5 mg total) by mouth in the morning and 0.5 tablets (2.5 mg total) before bedtime., Disp: , Rfl: atorvastatin (LIPITOR) 20 mg tablet, Take 1 tablet (20 mg total) by mouth in the morning., Disp: , Rfl: B complex-vitamin C-folic acid (NEPHROCAP) 1 mg capsule, Take 1 capsule by mouth in the morning., Disp: , Rfl: bumetanide (BUMEX) 2 mg tablet, Take 1 tablet (2 mg total) by mouth daily as needed (for swelling)., Disp: , Rfl: calcium carbonate (OS-SARAH BETH) 600 mg elemental (1,500 mg) tablet, Take 1 tablet (600 mg total) by mouth daily with breakfast., Disp: , Rfl: digoxin (LANOXIN) 250 mcg tablet, Take 1 tablet (250 mcg total) by mouth in the morning., Disp: , Rfl: docusate sodium (COLACE) 100 mg capsule, Take 1 capsule (100 mg total) by mouth in the morning and 1 capsule (100 mg total) before bedtime., Disp: , Rfl: gabapentin (NEURONTIN) 300 mg capsule, Take 1 capsule (300 mg total) by mouth 3 (three) times a day., Disp: 90 capsule, Rfl: 1 magnesium oxide (MAGOX) 400 mg tablet, Take 1 tablet (400 mg total) by mouth in the morning., Disp:30 tablet, Rfl: 6 metoprolol succinate XL (TOPROL XL) 25 mg 24 hr tablet, Take 0.5 tablets (12.5 mg total) by mouth in the morning., Disp: , Rfl: mirtazapine (REMERON) 15 mg tablet, Take 1 tablet (15 mg total) by mouth nightly., Disp: , Rfl: hadmdyahe-tznhzzluvuiunyt-tdnesbqh-magnesium hydroxide-simethicone CMPD (MAGIC MOUTHWASH), Swish and spit 5 mL 4 (four) times a day as needed for mouth/gum irritation. (Patient not taking: Reported on 12/03/2023), Disp: 250 mL, Rfl: 1 melatonin 3 mg capsule, Take 3 mg by mouth nightly as needed. (Patient not taking: Reported on 06/02/2024), Disp: , Rfl: ondansetron (ZOFRAN) 8 mg tablet, Starting on day 3, take 1 tablet by mouth twice daily as needed for severe nausea or vomiting. (Patient not taking: Reported on 06/02/2024), Disp: 60 tablet, Rfl: 2 potassium chloride (KLOR-CON M 20) 20 MEQ CR tablet, Take 1 tablet (20 mEq total) by mouth in the morning and 1 tablet (20 mEq total) before bedtime. Plan to stop the potassium supplementation once diarrhea has resolved.. (Patient not taking: Reported on 12/03/2023), Disp: 60 tablet, Rfl: 6 No current facility-administered medications for this visit. Facility-Administered Medications Ordered in Other Visits: sodium chloride 0.9 % flush 20 mL, 20 mL, intravenous, PRN, Wallace Prado MD, 20 mL at 06/02/24 1220 Diagnosis Problem list: Patient Active Problem List [...] lymphoma. The patient's path was reviewed at [facility], the tumor was deemed to be EBV positive, immunohistochemistry staining is consistent with Hodgkin's lymphoma. The tumors are CD15, CD30 GATA3 and Charlo positive. These tumors are negative for all other markers tested. Patient has a normal CD4: CD8 ratio. His CT scan after 1 dose of brentuximab already show improvement in retroperitoneal and mediastinallymph node. C3 day 1 brentuximab/ABD, treatment was [...] in the abdomen. Due to worsening neuropathy, His last dose of brentuximab treatment was in December 2023. PET scan 01/2024 showed mediastinal lymph node and intra-abdominal lymph nodes all improved in sizeand activity except subcarinal lymph node decreased in size increase in activity with SUV of 9. He has new onset FDG uptake in right 10th rib, L2 and left greater than right initial tuberosity. Biopsy of the left hip lesion came back negative for residual disease. Repeat PET scan 05/2024 showed worsening bony lesions, there is progression of multifocal hypermetabolic disease. There is multifocal bone activity which looks increased in extent and distribution. There is increase in hypermetabolic lymphadenopathy with dominant subcarinal mass, mild right axillary and supraclavicular disease There is mild multifocal liver activity which looks new. There is suggestion of right pleural disease at the right lung base. There are small lung nodules which looks new but do not demonstrate abnormal metabolic activity/uptake. [facility]. Flush port, CBC, CMP, ESR, PSA. F/u IN 5 weeks with port flush. If biopsy confirmed disease progression, plan to start nivolumab plus AVD. Wallace Prado M.D. [facility] [address] [place] [address] documented in this encounterAdena Pike Medical Center03-06-2025 Instructions* Patient Instructions* Wallace Prado MD - 06/02/2024 11:15 AM EST [facility]. Flush port, CBC, CMP, ESR, PSA. F/u IN 5 weeks with port flush. documented in this encounterAdena Pike Medical Center03-04-2025 History of Present illness Narrative* Quin Mas MD - 05/31/2024 9:10 AM EST Subjective Patient ID: Torsten Haywood is a 68 y.o. male who presents for Epistaxis (Nose Bleed) No further bleeding since last seen. Now on a lower dose of Eliquis. Family tried to find someone to do an anterior ethmoid ligation in [place], but could not 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) 07/12/2021 Cardiomyopathy (CMS/HCC) 01/14/2017 Chronic systolic heart failure (CMS/HCC) 07/12/2021 Coronary atherosclerosis (CMS/HCC) 01/14/2017 Factor V Leiden mutation (CMS/HCC) 12/28/2018 History of coronary artery bypass surgery 07/12/2021 Hodgkin lymphoma (CMS/HCC) 10/02/2023 Hypertension (CMS/HCC) 07/12/2021 Hypokalemia 10/03/2023 Hypomagnesemia 10/03/2023 Hyponatremia 10/03/2023 Implantable cardioverter-defibrillator (ICD) in situ 07/12/2021 Mass of lung 06/25/2023 Multifocal pneumonia 07/01/2023 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 Nonsustained ventricular tachycardia (CMS/HCC) 07/12/2021 Paroxysmal atrial fibrillation (CMS/HCC) 08/17/2023 Benign essential hypertension (CMS/HCC) 02/22/2024 Constipation 02/22/2024 Dizziness and giddiness 02/22/2024 Drug-induced insomnia (CMS/HCC) 02/22/2024 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 02/22/2024 Neuropathy of both feet 02/22/2024 Nosebleed 02/22/2024 Obesity, Class II, BMI 35-39.9 01/14/2018 Tachycardia 02/22/2024 Tubular adenoma of colon 02/22/2024 Resolved Ambulatory Problems Diagnosis Date Noted Dehydration 10/03/2023 Diarrhea 10/03/2023 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 10/03/2023 No Additional Past Medical History Past Surgical History: Procedure Laterality Date CT ANGIOGRAM HEART CORONARY 10/07/2023 CT ANGIOGRAM TAVR 10/07/2023 FL GUIDED PERCUTANEOUS BIOPSY BONE 03/10/2024 FL GUIDED PERCUTANEOUS BIOPSY BONE 03/10/2024 IR EMBOLIZATION LYMPH NODE Bilateral 07/10/2023 IR EMBOLIZATION LYMPH NODE 07/10/2023 IR TUNNELED CENTRAL VENOUS ACCESS DEVICE W SUBCUTANEOUS PUMP 08/05/2023 IR TUNNELED CENTRAL VENOUS ACCESS DEVICE W SUBCUTANEOUS PUMP 08/05/2023 No Known Allergies Current Outpatient Medications on File Prior to Visit Medication Sig Dispense Refill amiodarone (Pacerone) 200 MG tablet Take 1 tablet by mouth Daily apixaban (Eliquis) 5 MG tablet Take 5 mg by mouth in the morning and 5 mg in the evening. atorvastatin (Lipitor) 20 MG tablet Take 20 mg by mouth at bedtime bumetanide (Bumex) 2 MG tablet Take 2 mg by mouth Daily as needed calcium carbonate 1500 (600 Ca) MG tablet Take 600 mg by mouth Daily digoxin (Lanoxin) 250 MCG tab;et Take 250 mcg by mouth Daily magnesium oxide (Mag-Ox) 400 MG tablet Take 400 mg by mouth in the morning. metoprolol succinate XL (Toprol-XL) 25 MG 24 hr tablet Take 12.5 mg by mouth Daily mirtazapine (Remeron) 15 MG tablet Take 15 mg by mouth at bedtime potassium chloride CR (Klor-Con M20) 20 MEQ ER tablet Take 20 mEq by mouth in the morning and 20 mEq in the evening. No current facility-administered medications on file prior to visit. Objective Last Recorded Vitals Vitals: 05/31/24 0904 BP: 141/76 Pulse: 106 ENT Physical Exam Constitutional Appearance: patient appears well-developed, well-nourished and well-groomed, Communication/Voice: communication appropriate for developmental age; vocal quality normal; Nose External Nose: nares patent bilaterally; Assessment/Plan Diagnoses and all orders for this visit: Recurrent epistaxis Pt doing well after last trip to [place]. Will likely need an anterior ethmoid ligation if has bleeding from the same site again. Helpful that on lower dose of eliquis documented in this encounterSaint John's Breech Regional Medical [id number] Noteecg [facility] Subjective Torsten Haywood is a 68 y.o. year old male patient here for 3 mo follow up CAD, PAF, HFiEF, and cardiomyopathy. He's had no epistaxis since being on the lower dose of Eliquis. Denies chest pain and palpitations. Patient Active Problem List Diagnosis Cardiomyopathy (CMS/HCC) [...] Constipation Dizziness and giddiness Drug-induced insomnia (CMS/HCC) snf (current) use of anticoagulants Neuropathy of both feet Nosebleed Tachycardia Tubular adenoma of colon Family History Problem Relation Name Age of Onset Coronary artery disease Father Coronary artery disease Brother Social History Tobacco Use Smoking status: Never Smokeless tobacco: Never Substance Use Topics Alcohol use: Yes Comment: moderate HPI Torsten is seen in follow-up. He is a 68-year-old man with prior history of coronary artery [...] admitted to the emergency room at [facility] with shortness of breath. Following investigations and transfer to [facility] he was found to have [...] device check. He was evaluated by Dr. Carlos Bartlett in clinic. He has been maintained on amiodarone. Currently he has been undergoing chemotherapy and will be undergoing radiation therapy. He no longer needs oxygen therapy. He has had issues with recurrent epistaxis requiring numerous visits to the emergency room and underwent cauterization by ENT while he was on Eliquis 5 mg twice daily. Eliquis had to be interrupted for that. I then recommended being on Eliquis 2.5 mg twice daily. He has been taking it as such and has had no bleeding in the past 1 month. He denies chest pain. He has shortness of breath on exertion NYHA class II symptoms. No significant lower extremity edema. Review of Systems Cardiovascular: Positive for dyspnea on exertion. Hematologic/Lymphatic: Bruises/bleeds easily. Neurological: Positive for light-headedness. All other systems reviewed and are negative. Objective Visit Vitals BP 110/82 (BP Location: Right arm, Patient Position: Sitting) Pulse 86 Ht 1.854 m (6' 1 ) Wt 101 kg (222 lb) SpO2 95% BMI 29.29 kg/m??? Smoking Status Never BSA 2.28 m??? Physical Exam Constitutional: Appearance: He is [...] distension. Palpations: Abdomen is soft. Tenderness: There (more content not included)...[facility]02-05-2025 History of Present illness Narrative* Nahomy Patel RN - 05/04/2024 4:00 PM EST Images from the original note were not included. Spoke with [facility] in [place]. There is no gurantee a physician can perform an anterior ethmoid arterial ligation if he would need it. Spoke with [facility] his sister and they will just keep referral to [facility] per Dr. Mas. [facility] consult cancelled. MD Nahomy Molina RN We can refer him to [facility]. Previous Messages ----- Message ----- From: Nahomy Patel RN Sent: 04/28/2024 1:07 PM EST To: Wallace Prado MD Subject: nose bleeds He saw Dr. Mas ENT at [facility] for his nose bleeds and he did surgery to cauterize it but since he has to go back on eliquis he said it will likely bleed again and he will need an Anterior ethmoid arterial ligation done. Dr. Mas does not perform that and suggested patient go to [facility]. If possible they would to stay within [facility] and wondered if you knew of any ENT that could perform that procedure as Dr. Mas was not sure. Please advise documented in this encounterAdena Pike Medical Center01-30-2025 History of Present illness Narrative* Nahomy Patel RN - 04/28/2024 2:25 PM EST Images from the original note were not included. Spoke with [facility] referral entered for ENT [facility] at [facility]. Call placed to office to make sure that procedure can be done by the physicians there. Await call back. MD Nahomy Molina RN We can refer him to [facility] medical ENT. Previous Messages ----- Message ----- From: Nahomy Patel RN Sent: 04/28/2024 1:07 PM EST To: Wallace Prado MD Subject: nose bleeds He saw Dr. Mas ENT at [facility] for his nose bleeds and he did surgery to cauterize it but since he has to go back on eliquis he said it will likely bleed again and he will need an Anterior ethmoid arterial ligation done. Dr. Mas does not perform that and suggested patient go to [facility]. If possible they would to stay within [facility] and wondered if you knew of any ENT that could perform that procedure as Dr. Mas was not sure. Please advise documented in this encounterAdena Pike Medical Center01-29-2025 History of Present illness Narrative* Quin Mas MD - 04/27/2024 11:10 AM EST Subjective Patient ID: Torsten Haywood is a 68 y.o. male who presents for Epistaxis (Nose Bleed) Pt S/P emergent left nasal endo and cautery last Thursday. Brisk venous bleeding encountered on the superior-most left ant septum. Surgicel packed into sulcus for extra protection. Pt has been off Eliquis since the procedure and has had no further bleeding. Had been instructed to go to [facility] or ED if bleeding recurred for a possible anterior ethmoid ligation. 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) 07/12/2021 Cardiomyopathy (CMS/HCC) 01/14/2017 Chronic systolic heart failure (CMS/HCC) 07/12/2021 Coronary atherosclerosis ([facility]/HCC) 01/14/2017 Factor V Leiden mutation ([facility]/HCC) 12/28/2018 History of coronary artery bypass surgery 07/12/2021 Hodgkin lymphoma ([facility]/HCC) 10/02/2023 Hypertension ([facility]) 07/12/2021 Hypokalemia 10/03/2023 Hypomagnesemia 10/03/2023 Hyponatremia 10/03/2023 Implantable cardioverter-defibrillator (ICD) in situ 07/12/2021 Mass of lung 06/25/2023 Multifocal pneumonia 07/01/2023 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 ([facility]/HCC) 07/22/2023 Nonsustained ventricular tachycardia ([facility]/HCC) 07/12/2021 Paroxysmal atrial fibrillation ([facility]/HCC) 08/17/2023 Benign essential hypertension ([facility]/HCC) 02/22/2024 Constipation 02/22/2024 Dizziness and giddiness 02/22/2024 Drug-induced insomnia ([facility]/HCC) 02/22/2024 snf (current) use of anticoagulants 02/22/2024 Neuropathy of both feet 02/22/2024 Nosebleed 02/22/2024 Obesity, Class II, BMI 35-39.9 01/14/2018 Tachycardia 02/22/2024 Tubular adenoma of colon 02/22/2024 Resolved Ambulatory Problems Diagnosis Date Noted Dehydration 10/03/2023 Diarrhea 10/03/2023 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 10/03/2023 No Additional Past Medical History Past Surgical History: Procedure Laterality Date CT ANGIOGRAM HEART CORONARY 10/07/2023 CT ANGIOGRAM TAVR 10/07/2023 FL GUIDED PERCUTANEOUS BIOPSY BONE 03/10/2024 FL GUIDED PERCUTANEOUS BIOPSY BONE 03/10/2024 IR EMBOLIZATION LYMPH NODE Bilateral 07/10/2023 IR EMBOLIZATION LYMPH NODE 07/10/2023 IR TUNNELED CENTRAL VENOUS ACCESS DEVICE W SUBCUTANEOUS PUMP 08/05/2023 IR TUNNELED CENTRAL VENOUS ACCESS DEVICE W SUBCUTANEOUS PUMP 08/05/2023 No Known Allergies Current Outpatient Medications on File Prior to Visit Medication Sig Dispense Refill amiodarone (Pacerone) 200 MG tablet Take 1 tablet by mouth Daily apixaban (Eliquis) 5 MG tablet Take 5 mg by mouth in the morning and 5 mg in the evening. atorvastatin (Lipitor) 20 MG tablet Take 20 mg by mouth at bedtime bumetanide (Bumex) 2 MG tablet Take 2 mg by mouth Daily as needed calcium carbonate 1500 (600 Ca) MG tablet Take 600 mg by mouth Daily digoxin (Lanoxin) 250 MCG tab;et Take 250 mcg by mouth Daily magnesium oxide (Mag-Ox) 400 MG tablet Take 400 mg by mouth in the morning. metoprolol succinate XL (Toprol-XL) 25 MG 24 hr tablet Take 12.5 mg by mouth Daily mirtazapine (Remeron) 15 MG tablet Take 15 mg by mouth at bedtime potassium chloride CR (Klor-Con M20) 20 MEQ ER tablet Take 20 mEq by mouth in the morning and 20 mEq in the evening. No current facility-administered medications on file prior to visit. Objective Last Recorded Vitals Vitals: 04/27/24 1109 BP: 98/79 Pulse: 100 ENT Physical Exam Constitutional Appearance: patient appears well-developed, well-nourished and well-groomed, Communication/Voice: communication appropriate for developmental age; vocal quality normal; Nose Nose comments: Left superior nasal eschar. Assessment/Plan Diagnoses and all orders for this visit: Recurrent epistaxis Anticoagulated Chronic rhinitis Start augmentin to help nose heal. Restart Eliquis at lower dose if cleared by it software engineer. Shouldstill go to [facility] or if has a sig bleed. documented in this encounterSaint John's Breech [facility] Medical [id number] Telephone encounter Note* Telephone Encounter - Elizabeth Mas - 04/25/2024 9:53 AM EST Called pt sister in law/she verbalized understanding. [facility] [id number] Miscellaneous Notes* Telephone Encounter - Elizabeth Mas - 04/25/2024 9:53 AM EST Called pt sister in law/she verbalized understanding. * Telephone Encounter - Quin Mas MD - 04/25/2024 9:25 AM EST yes * Telephone Encounter - Elizabeth Mas - 04/25/2024 8:41 AM EST Pt's sister n law called in. Can the pt put neosporin in his nostril with a Qtip? documented in this encounterNOFreeman Orthopaedics & Sports [id number] Telephone encounter Note* Telephone Encounter - Quin Mas MD - 04/25/2024 9:25 AM EST yes [facility] Work Phone: [phone] [phone] Telephone encounter Note* Telephone Encounter - Elizabeth Msa - 04/25/2024 8:41 AM EST Pt's sister n law called in. Can the pt put neosporin in his nostril with a Qtip? [facility] [id number] NotePatient Education - Text ENT Nosebleed, Adult A nosebleed is when blood comes out of the nose. Nosebleeds are common and can be caused by many things. They are usually not a sign of a serious medical problem. Follow these instructions at home: When you have a nosebleed: ??? Sit down. ??? Tilt your head forward a little. ??? Follow these steps: 1. Pinch your nose with a clean towel or tissue. 2. Keep pinching your nose for 5 minutes. Do not let go. 3. After 5 minutes, let go of your nose. 4. Keep doing these steps until the bleeding stops. ??? Do not put tissues or other things in your nose to stop the bleeding. ??? Avoid lying down or putting your head back. ??? Use a nose spray decongestant as told by your doctor. After a nosebleed: ??? Try not to blow your nose or sniffle for several hours. ??? Try not to strain, lift, or bend at the waist for several days. ??? Aspirin and medicines that thin your blood make bleeding more likely. If you take these medicines: ? Ask your doctor if you should stop taking them or if you should change how much you take. ? Do not stop taking the medicine unless your doctor tells you to. ??? If your nosebleed was caused by dryness, use svxh-ibq-lowgmob saline nasal spray or gel and a humidifier as told by your doctor. This will keep the inside of your nose moist and allow it to heal.If you need to use nasal spray or gel: ? Choose one that is water-soluble. ? Use only as much as you need and use it only as often as needed. ? Do not lie down right away after you use it. ??? If you get nosebleeds often, talk with your doctor about treatments. These may include: ? Nasal cautery. A chemical swab or electrical device is used to lightly burn tiny blood vessels inside the nose. This helps stop or prevent nosebleeds. ? Nasal packing. A gauze or other material is placed in the nose to keep constant pressure on the bleeding area. Contact a doctor if: ??? You have a fever. ??? You get nosebleeds often. ??? You get nosebleeds more often than usual. ??? You bruise very easily. ??? You have something stuck in your nose. ??? You are bleeding in your mouth. ??? You vomit or cough up brown material. ??? You get a nosebleed after you start a new medicine. Get help right away if: ??? You have a nosebleed after you fall or hurt your head. ??? Your nosebleed does not go away after 20 minutes. ??? You feel dizzy or weak. ??? You have unusual bleeding from other parts of your body. ??? You have unusual bruising on other parts of your body. ??? You get sweaty. ??? You vomit blood. Summary ??? Nosebleeds are common. They are usually not a sign of a serious medical problem. ??? When you have a nosebleed, sit down and tilt your head a little forward. Pinch your nose with aclean tissue for 5 minutes. ??? Use saline spray or saline gel and a humidifier as told by your doctor. ??? Get help right away if your nosebleed does not go away after 20 minutes. This information is not intended to replace advice given to you by your health care provider. Make sure you discuss any questions you have with your health care provider. Document Revised: 03/25/2022 Document Reviewed: 03/25/2022 [employer] Patient Education ? 2023 [employer] 04-22-2024 NoteProgress Note-Physician Patient: TORSTEN HAYWOOD Age: 68 years Sex: Male : 1955 Associated Diagnoses: None Author: Eriberto Huff Jr., DO Postoperative Information Postoperative disposition: Postoperative disposition: Home. Optimetrix number: Optimetrix number [id number]. Anesthetic utilized: General. Physical Examination Vital Signs 04/22/2024 18:00 EST Heart Rate Monitored 64 bpm SpO2 92 % 04/22/2024 18:00 EST Respiratory Rate 14 br/min 04/22/2024 17:59 EST Systolic Blood Pressure 120 mmHg Diastolic Blood Pressure 78 mmHg Mean Arterial Pressure, Monitered 92 mmHg 04/22/2024 17:50 EST Temperature Temporal Artery 36.4 DegC Heart Rate Monitored 64 bpm Respiratory Rate Monitored 13 br/min Systolic Blood Pressure 112 mmHg Diastolic Blood Pressure 77 mmHg SpO2 93 % 04/22/2024 17:35 EST Heart Rate Monitored 64 bpm Respiratory Rate Monitored 14 br/min Systolic Blood Pressure 125 mmHg Diastolic Blood Pressure 79 mmHg SpO2 94 % 04/22/2024 17:30 EST Heart Rate Monitored 66 bpm Respiratory Rate Monitored 13 br/min Systolic Blood Pressure 124 mmHg Diastolic Blood Pressure 76 mmHg SpO2 92 % 04/22/2024 17:25 EST Heart Rate Monitored 64 bpm Respiratory Rate Monitored 19 br/min Systolic Blood Pressure 120 mmHg Diastolic Blood Pressure 78 mmHg SpO2 96 % 04/22/2024 17:23 EST Temperature Temporal Artery 36.3 DegC Heart Rate Monitored 64 bpm Respiratory Rate Monitored 18 br/min Systolic Blood Pressure 128 mmHg Diastolic Blood Pressure 83 mmHg SpO2 98 % Pain Assessment: Controlled, Pain Assessment 04/22/2024 18:00 EST Preliminary Pain Scale 0 04/22/2024 17:50 EST Numeric Pain Scale 0 = No pain Numeric Pain Score 0 04/22/2024 17:23 EST Numeric Pain Scale 0 = No pain Numeric Pain Score 0 . General: Awake, Alert, Appropriate. Respiratory: Adequate air exchange, Non-labored. Cardiovascular: Stable, Normal peripheral perfusion. Neurological: Neurologic exam at baseline. No changes.. Assessment Anesthetic outcome No anesthetic complications noted. No nausea/vomiting. Review / Management Condition: Stable. Plan Transfer/Discharge: Transfer/Discharge Discharge when meets criteria ( From PACU to Ambulatory Surgery Unit, and To home ).[facility] MemorialComment on above:Result Comment: Electronically Signed By: Eriberto Huff Jr., DO\.br\Date and Time Signed: 04/22/24 20:53 [id number] Telephone encounter Note* Telephone Encounter - Elizabeth Mas - 04/22/2024 10:54 AM EST Pt's sister in law called in. Torsten started with a nose bleed this am about 20 minutes ago. It is bleeding a good amount , running down his face. He has the nose clamp on as of now...... Dr Mas reviewed this and said for pt to go to [facility] [facility] [id number] Miscellaneous Notes* Telephone Encounter - Elizabeth Mas - 04/22/2024 10:54 AM EST Pt's sister in law called in. Torsten started with a nose bleed this am about 20 minutes ago. It is bleeding a good amount , running down his face. He has the nose clamp on as of now...... Dr Mas reviewed this and said for pt to go [place] [facility]. documented in this encounterSaint [facility] [id number] History of Present illness Narrative* Nahomy Patel RN - 04/07/2024 2:04 PM EST Patient saw Dr. Prado today for follow up. Orders received to repeat pet scan late 04/2024. F/u in early 05/2024 Patient given calendar, verbalized understanding of future appointments. [facility] this [facility] History of Present illness Narrative* Wallace Prado MD - 04/07/2024 1:30 PM EST Images from the original note were not included. [facility] Rajendra Manrique M.D. Aimee Anderson M.D. Fili Bolanos M.D. Briseida Sena M.D. Chantale Melvin, 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 Morales Joseph, 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 Gala Trotter, [employer] Angelika Jones, [employer] ROSIBEL Javier M.D. Santiago Nicolas M.D. Dale Bro M.D. Brandon Banuelos M.D. Alysa Major, 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 Carmen Park, 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 Jennifer Eaton, 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 Parul Esteves, [employer] PROGRESS NOTE 04/07/24 History of present illness: The patient is a 67 y.o. male Who presented to [facility] due to some new worsening shortness of breath over the last 2 days. He was transferred to [facility] for further workup. Patient had noted [...] show any malignant cells at this time. [facility] had pleural fluid drained, which did not [...] back to walking with a walker again. The patient's last dose of brentuximab was the end of 01/17/24, he has been on treatment break overthe past 3 months. Neuropathy is slowly improving. No significant bone pains. Weight is stable. After Eliquis dose was decreased no further bleeding from his nose. No new constitutional symptoms. Breathing is normal. Pain scale:0/10, location:NA Recent history: taken from consult on 07/06/23 Objective Physical Examination: Vitals: BP 121/83 Pulse 104 Temp 36.4 C (97.5 F) (Oral) Resp 16 Ht 182.9 cm (6' 0.01 ) Wt99.6 kg (219 lb 9.6 oz) SpO2 96% BMI 29.78 kg/m Physical Exam Constitutional: General: He is [...] total) by mouth in the morning., Disp: ,Rfl: atorvastatin (LIPITOR) 20 mg tablet, Take 1 tablet (20 mg total) by mouth in the morning., Disp: , Rfl: B complex-vitamin C-folic acid (NEPHROCAP) 1 mg capsule, Take 1 capsule by mouth in the morning., Disp: , Rfl: bumetanide (BUMEX) 2 mg tablet, Take 1 tablet (2 mg total) by mouth daily as needed (for swelling)., Disp: , Rfl: calcium carbonate (OS-SARAH BETH) 600 mg elemental (1,500 mg) tablet, Take 1 tablet (600 mg total) by mouth daily with breakfast., Disp: , Rfl: digoxin (LANOXIN) 250 mcg tablet, Take 1 tablet (250 mcg total) by mouth in the morning., Disp: , Rfl: docusate sodium (COLACE) 100 mg capsule, Take 1 capsule (100 mg total) by mouth in the morning and 1 capsule (100 mg total) before bedtime., Disp: , Rfl: gabapentin (NEURONTIN) 300 mg capsule, Take 1 capsule (300 mg total) by mouth 3 (three) times a day., Disp: 90 capsule, Rfl: 1 magnesium oxide (MAGOX) 400 mg tablet, Take 1 tablet (400 mg total) by mouth in the morning., Disp:30 tablet, Rfl: 6 metoprolol succinate XL (TOPROL XL) 25 mg 24 hr tablet, Take 0.5 tablets (12.5 mg total) by mouth in the morning., Disp: , Rfl: mirtazapine (REMERON) 15 mg tablet, Take 1 tablet (15 mg total) by mouth nightly., Disp: , Rfl: apixaban (ELIQUIS) 5 mg tablet, Take 0.5 tablets (2.5 mg total) by mouth in the morning and 0.5 tablets (2.5 mg total) before bedtime. (Patient not taking: Reported on 04/07/2024), Disp: , Rfl: wrmuzayzu-zsnpguoyrpmujax-erxrfnjm-magnesium hydroxide-simethicone CMPD (MAGIC MOUTHWASH), Swish and spit 5 mL 4 (four) times a day as needed for mouth/gum irritation. (Patient not taking: Reported on 04/07/2024), Disp: 250 mL, Rfl: 1 melatonin 3 mg capsule, Take 3 mg by mouth nightly as needed. (Patient not taking: Reported on 01/28/2024), Disp: , Rfl: ondansetron (ZOFRAN) 8 mg tablet, Starting on day 3, take 1 tablet by mouth twice daily as needed for severe nausea or vomiting. (Patient not taking: Reported on 03/04/2024), Disp: 60 tablet, Rfl: 2 potassium chloride (KLOR-CON M 20) 20 MEQ CR tablet, Take 1 tablet (20 mEq total) by mouth in the morning and 1 tablet (20 mEq total) before bedtime. Plan to stop the potassium supplementation once diarrhea has resolved.. (Patient not taking: Reported on 12/03/2023), Disp: 60 tablet, Rfl: 6 Diagnosis Problem [...] lymphoma. The patient's path was reviewed at [facility], the tumor was deemed to be EBV positive, immunohistochemistry staining is consistent with Hodgkin's lymphoma. The tumors are CD15, CD30 GATA3 and Charlo positive. These tumors are negative for all other markers tested. Patient has a normal CD4: CD8 ratio. I discussed the results with patient's POA, Joana [id number]. Prior to admission the patient was maintaining a good performance status until about 3 months ago. He developed weight loss, fatigue and profuse night sweats. The patient's energy continues to improve, performance status is now 2. His CT scan after 1 dose of brentuximab already show improvement in retroperitoneal and mediastinallymph node. C3 day 1 brentuximab/ABD, treatment was [...] for total of 14 doses (C7) treatment. PET scan reviewed, mediastinal lymph node and intra-abdominal lymph nodes all improved in size and activity except subcarinal lymph node decreased in size increase in activity with SUV of 9. He has new onset FDG uptake in right 10th rib, L2 and left greater than right initial tuberosity. Biopsy of the left hip lesion came back negative for residual disease. Referral to rad/onc consider palliative radiation to this FDG avid lesions. The patient has a pacemaker in place, radiation could be risky. Hold off on radiation treatment, proceed with repeat PET scan in 8 weeks. Follow-up with me in early May to review PET scan results. Wallace Prado M.D. [facility] [address] [place] [address] documented in this [facility]01-09-2025 Instructions* Patient Instructions* Wallace Prado MD - 04/07/2024 1:30 PM EST Repeat pet scan late 04/2024 F/u in early 05/2024 documented in this [facility]12-06-2024 History of Present illness Narrative* Nahomy Patel RN - 03/04/2024 1:57 PM EST Patient saw Dr. Prado today for follow up. Orders received to hold tx for now. Biopsy bone lesions. Referral to rad/onc. F/u in 4-5 weeks. Patient given calendar, verbalized understanding of future appointments. documented in this [facility]12-06-2024 History of Present illness Narrative* Wallace Prado MD - 03/04/2024 1:30 PM EST Images from the original note were not included. [facility] Rajendra Manrique M.D. Aimee Anderson M.D. Fili Bolanos M.D. Briseida Sena M.D. Chantale Melvin, [facility] Morales Joseph, [facility] Gala Trotter, [facility] Angelikakaylyn Jones, [facility] ROSIBEL Javier M.D. Santiago Nicolas M.D. Dale Bro M.D. Brandon Banuelos M.D. Alysa Major, [facility] Carmen Xavier, [facility] Angelito, [facility] Parul Esteves, [facility] PROGRESS NOTE 03/04/24 History of present illness: The patient is a 67 y.o. male Who presented to [facility] due to some new worsening shortness of breath over the last 2 days. He was transferred to [facility] for further workup. Patient had noted [...] show any malignant cells at this time. [facility] had pleural fluid drained, which did not [...] back to walking with a walker again. The patient complains about worsening peripheral neuropathies, he has tingling mainly over his feet. Right hand also have little bit but is tolerable. Able to walk with a walker continue exercise every day. Denies significant diarrhea, weight has been stable. He has a few days of epistaxis, ENT completed cauterization. His Eliquis was decreased to 2.5 mg twice a day. Denied any significant shortness of breath. No new constitutional symptoms. Pain scale:0/10, location:NA Recent history: taken from consult on 07/06/23 Objective Physical Examination: Vitals: BP 116/77 Pulse 83 Temp 36.5 C (97.7 F) (Oral) Resp 18 Ht 182.9 cm (6' 0.01 ) Wt 98.9 kg (218 lb) SpO2 98% BMI 29.56 kg/m Physical Exam Constitutional: General: He is [...] total) by mouth in the morning., Disp: ,Rfl: apixaban (ELIQUIS) 5 mg tablet, Take 0.5 tablets (2.5 mg total) by mouth in the morning and 0.5 tablets (2.5 mg total) before bedtime., Disp: , Rfl: atorvastatin (LIPITOR) 20 mg tablet, Take 1 tablet (20 mg total) by mouth in the morning., Disp: , Rfl: B complex-vitamin C-folic acid (NEPHROCAP) 1 mg capsule, Take 1 capsule by mouth in the morning., Disp: , Rfl: bumetanide (BUMEX) 2 mg tablet, Take 1 tablet (2 mg total) by mouth daily as needed (for swelling)., Disp: , Rfl: calcium carbonate (OS-SARAH BETH) 600 mg elemental (1,500 mg) tablet, Take 1 tablet (600 mg total) by mouth daily with breakfast., Disp: , Rfl: digoxin (LANOXIN) 250 mcg tablet, Take 1 tablet (250 mcg total) by mouth in the morning., Disp: , Rfl: docusate sodium (COLACE) 100 mg capsule, Take 1 capsule (100 mg total) by mouth in the morning and 1 capsule (100 mg total) before bedtime., Disp: , Rfl: magnesium oxide (MAGOX) 400 mg tablet, Take 1 tablet (400 mg total) by mouth in the morning., Disp:30 tablet, Rfl: 6 metoprolol succinate XL (TOPROL XL) 25 mg 24 hr tablet, Take 0.5 tablets (12.5 mg total) by mouth in the morning., Disp: , Rfl: mirtazapine (REMERON) 15 mg tablet, Take 1 tablet (15 mg total) by mouth nightly., Disp: , Rfl: gabapentin (NEURONTIN) 300 mg capsule, Take 1 capsule (300 mg total) by mouth 3 (three) times a day., Disp: 90 capsule, Rfl: 1 vretabkje-zbpovxmissxxmrh-ubcubmzo-magnesium hydroxide-simethicone CMPD (MAGIC MOUTHWASH), Swish and spit 5 mL 4 (four) times a day as needed for mouth/gum irritation. (Patient not taking: Reported on 03/04/2024), Disp: 250 mL, Rfl: 1 melatonin 3 mg capsule, Take 3 mg by mouth nightly as needed. (Patient not taking: Reported on 01/28/2024), Disp: , Rfl: ondansetron (ZOFRAN) 8 mg tablet, Starting on day 3, take 1 tablet by mouth twice daily as needed for severe nausea or vomiting. (Patient not taking: Reported on 03/04/2024), Disp: 60 tablet, Rfl: 2 potassium chloride (KLOR-CON M 20) 20 MEQ CR tablet, Take 1 tablet (20 mEq total) by mouth in the morning and 1 tablet (20 mEq total) before bedtime. Plan to stop the potassium supplementation once diarrhea has resolved.. (Patient not taking: Reported on 03/04/2024), Disp: 60 tablet, Rfl: 6 Diagnosis Problem [...] lymphoma. The patient's path was reviewed at [facility], the tumor was deemed to be EBV positive, immunohistochemistry staining is consistent with Hodgkin's lymphoma. The tumors are CD15, CD30 GATA3 and Charlo positive. These tumors are negative for all other markers tested. Patient has a normal CD4: CD8 ratio. I discussed the results with patient's POA, Joana [id number]. Prior to admission the patient was maintaining a good performance status until about 3 months ago. He developed weight loss, fatigue and profuse night sweats. The patient's energy continues to improve, performance status is now 2. His CT scan after 1 dose of brentuximab already show improvement in retroperitoneal and mediastinallymph node. C3 day 1 brentuximab/ABD, treatment was [...] for total of 14 doses (C7) treatment. PET scan reviewed, mediastinal lymph node and intra-abdominal lymph nodes all improved in size and activity except subcarinal lymph node decreased in size increase in activity with SUV of 9. He has new onset FDG uptake in right 10th rib, L2 and left greater than right initial tuberosity. Hold tx for now. Biopsy bone lesions to rule out disease progression. Referral to rad/onc consider palliative radiation to this FDG avid lesions. If biopsy comes back positive consider further treatment with Opdivo plus palliative radiation. If biopsy comes back negative, consider radiation treatment alone. F/u in 4-5 weeks. Wallace Prado M.D. [facility] [address] [place] [address] documented in this encounterKerbs [facility] HospitalConverged Access12-06-2024 Instructions* Patient Instructions* Wallace Prado MD - 03/04/2024 1:30 PM EST Hold tx for now. Biopsy bone lesions. Referral to rad/onc. F/u in 4-5 weeks. documented in this encounterAdena [facility]11-25-2024 NoteUT Cardiology - [facility] Subjective Torsten Haywood is a 68 y.o. year old male patient being seen to discuss Eliquis dose. He's been having episodes of epistaxis, requiring several visits to the ED. He saw ENT this morning and they did silver nitrate cauterization. He's been off of Eliquis since Thursday, and was advised to resume it Thursday. Had CT chest last month and sister in law was concerned about severe coronary artery calcifications . Patient Active Problem List Diagnosis Cardiomyopathy (CMS/HCC) [...] Constipation Dizziness and giddiness Drug-induced insomnia (CMS/HCC) snf (current) use of anticoagulants Neuropathy of both feet Nosebleed Tachycardia Tubular adenoma of colon Family History Problem Relation Name Age of Onset Coronary artery disease Father Coronary artery disease Brother Social History Tobacco Use Smoking status: Never Smokeless tobacco: Never Substance Use Topics Alcohol use: Yes Comment: moderate HPI Torsten is seen in follow-up. He is a 68-year-old man with prior history of coronary artery [...] admitted to the emergency room at [facility] with shortness of breath. Following investigations and transfer to [facility] he was found to have [...] device check. He was evaluated by Dr. Carlos Bartlett in clinic. He has been maintained on amiodarone. Currently he has been undergoing chemotherapy. He no longer needs oxygen therapy. He has been maintained on Eliquis 5 mg twice daily. Recently he has been having repeated episodes of epistaxis requiring numerous visits to the emergency room and this morning he had underwent cauterization by ENT. He denies chest pain. He has shortness of breath on exertion NYHA class II-III symptoms. No significant lower extremity edema. Review of Systems HENT: Positive for nosebleeds. Cardiovascular: Positive for dyspnea on exertion. Hematologic/Lymphatic: Positive for bleeding problem. Bruises/bleeds easily. Neurological: Positive for light-headedness. Objective Visit Vitals BP 100/70 (BP Location: Left arm, Patient Position: Sitting) Pulse 99 Ht 1.854 m (6' 1 ) Wt 94.3 kg (208 lb) SpO2 95% BMI 27.44 kg/m??? Smoking Status Never BSA 2.2 m??? Physical Exam Constitutional: Appearance: He is [...] rales. Chest: Chest wall: No tenderness. Abdominal: Gene (more content not included)...[facility]11-25-2024 History of Present illness Narrative* Quin Mas MD - 02/22/2024 10:00 AM EST Images from the original note were not included. Subjective Patient ID: Torsten Haywood is a 68 y.o. male who presents for Epistaxis (Nose Bleed) (Left side packed in [facility] ER 02/17) Pt reports he started getting recurrent left epistaxis one month ago. Has been to the ED 4 times inthe past week. Tx with a clamp the first visit, then AgNO3, the given a rhinorocket x 2, then packed with vaseline gauze. No bleeding since gauze placed. Taking takes eliquis for afib and factor V. Held since Thursday. Currently getting chemo for lymphoma. Review of Systems All other systems reviewed and are negative. 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) 07/12/2021 Cardiomyopathy (CMS/HCC) 01/14/2017 Chronic systolic heart failure (CMS/HCC) 07/12/2021 Coronary atherosclerosis (CMS/HCC) 01/14/2017 Factor V Leiden mutation (CMS/HCC) 12/28/2018 History of coronary artery bypass surgery 07/12/2021 Hodgkin lymphoma (CMS/HCC) 10/02/2023 Hypertension (CMS/HCC) 07/12/2021 Hypokalemia 10/03/2023 Hypomagnesemia 10/03/2023 Hyponatremia 10/03/2023 Implantable cardioverter-defibrillator (ICD) in situ 07/12/2021 Mass of lung 06/25/2023 Multifocal pneumonia 07/01/2023 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 Nonsustained ventricular tachycardia (CMS/HCC) 07/12/2021 Paroxysmal atrial fibrillation (CMS/HCC) 08/17/2023 Resolved Ambulatory Problems Diagnosis Date Noted Dehydration 10/03/2023 Diarrhea 10/03/2023 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 10/03/2023 No Additional Past Medical History Past Surgical History: Procedure Laterality Date CT ANGIOGRAM HEART CORONARY 10/07/2023 CT ANGIOGRAM TAVR 10/07/2023 IR EMBOLIZATION LYMPH NODE Bilateral 07/10/2023 IR EMBOLIZATION LYMPH NODE 07/10/2023 IR TUNNELED CENTRAL VENOUS ACCESS DEVICE W SUBCUTANEOUS PUMP 08/05/2023 IR TUNNELED CENTRAL VENOUS ACCESS DEVICE W SUBCUTANEOUS PUMP 08/05/2023 No Known Allergies Current Outpatient Medications on File Prior to Visit Medication Sig Dispense Refill amiodarone (Pacerone) 200 MG tablet Take 1 tablet by mouth Daily apixaban (Eliquis) 5 MG tablet Take 5 mg by mouth in the morning and 5 mg in the evening. atorvastatin (Lipitor) 20 MG tablet Take 20 mg by mouth at bedtime bumetanide (Bumex) 2 MG tablet Take 2 mg by mouth Daily as needed calcium carbonate 1500 (600 Ca) MG tablet Take 600 mg by mouth Daily digoxin (Lanoxin) 250 MCG tab;et Take 250 mcg by mouth Daily magnesium oxide (Mag-Ox) 400 MG tablet Take 400 mg by mouth in the morning. metoprolol succinate XL (Toprol-XL) 25 MG 24 hr tablet Take 12.5 mg by mouth Daily mirtazapine (Remeron) 15 MG tablet Take 15 mg by mouth at bedtime potassium chloride CR (Klor-Con M20) 20 MEQ ER tablet Take 20 mEq by mouth in the morning and 20 mEq in the evening. No current facility-administered medications on file prior to visit. Objective Last Recorded Vitals Vitals: 02/22/24 1014 BP: 91/63 ENT Physical Exam Constitutional Appearance: patient appears well-developed and well-nourished, Head and Face Appearance: head appears normal and face appears atraumatic; Ear Ear comments: Valerio ears normal Nose External Nose: nares patent bilaterally; external nose normal; Nose comments: Single vaseline gauze removed from the RT nasal cavity. Apparent bleeding site evident ant/sup septum. Oral Cavity/Oropharynx Lips: normal; Teeth: normal; Gums: gingiva normal; Tongue: normal; Oral mucosa: normal; Hard palate: normal; Neck Neck: neck normal; neck palpation normal; Thyroid: thyroid normal; Respiratory Inspection: breathing unlabored; normal breathing rate; Auscultation: breath sounds are clear; Cardiovascular Inspection: extremities are warm and well perfused; no peripheral edema present; Auscultation: regular rate and rhythm; Patient ID: Torsten Haywood is a 68 y.o. male. Procedures The anterior nasal cavity was topically anesthetized. Location of the bleed was the Kiesselbach's plexus. The procedure was performed on the left side endoscopically. The culprit lesion was successfully controlled with silver nitrate cauterization. Assessment/Plan Diagnoses and all orders for this visit: Internal nasal lesion Anticoagulated Recurrent epistaxis Bleeding appears to be due to lesion cauterized on the ant/sup septum. Hold anticoag meds at least one more day. Family understands I will be unavailable most of the restof the week. Will go [place] [facility] if bleeds overnight. Will likely need OR if repacked. No strenuous activity or nose blowing. Keep head elevated one week documented in this encounterSaint John's Breech [facility] Medical [id number] History of Present illness Narrative* DIA Cueto - 02/11/2024 11:59 PM EST Pleasant pt easily engages with lead technical writer, pt relayed he has been doing well. Siblings/in-laws providenatural supports. Continues with [facility]. Opportunity provided to ask questions, pt does not endorse any at this time; lead technical writer available & following. documented in this encounterAdena [facility] Center11-14-2024 History of Present illness Narrative* Nahomy Patel RN - 02/11/2024 10:00 AM EST Patient is here for brentuximab as scheduled. Labs and VS WNL.His nosebleeds have been reported to Dr. Prado. Patient is trying to moisturize his nasal passage. If he continue to have nosebleed he willupdate PCP to see if he needs to [...] in stable ambulatory condition. documented in this encounterAdena Pike Medical Center11-12-2024 History of Present illness Narrative* Elizabeth Burton RN - 02/09/2024 2:54 PM EST Images from the original note were not included. MD Elizabeth Molina RN It os because of the dryness. he needs to put some Vaseline in the nostril to keep it moist. Previous Messages ----- Message ----- From: Elizabeth Burton RN Sent: 02/09/2024 2:27 PM EST To: Wallace Prado MD; Sonya Reyes RN; * Patient started having nose bleeds on Thursday and has had six occurrences. Some have happened in the middle of the night. Sis-in-law reports it takes great effort to get them to stop. She wants to know if this is a side effect of the Brentuximab? He is also currently on eliquis for cardiac reasons documented in this encounterAdena Pike Medical Center11-07-2024 NotePatient Education Nutrition BMI for Adults Body mass [...] This can help you reach a healthy weight.BMI screening can be done again to see if these changes are working. How is BMI calculated? Your height and weight are measured. The BMI is found from those numbers. This can be done with U.S. or metric measurements. Note that charts and online BMI calculators are available to help you findyour BMI quickly and easily without doing these [...] measurement is 1.75 m x 1.75 m, whichequals 3.1 meters squared. 3. Divide the number of kilograms (your weight) by the meters squared number. In this example: 70 ?3.1 = 22.6. This is your BMI. What [...] for Disease Control and Prevention: cdc.gov ??? [place] Heart Association: heart.org ??? National Heart, Lung, and Blood [place]: nhlbi.nih.gov This information is not intended to replace advice given to you by your health care provider. Make sure you discuss any questions you have with your health care provider. Document Revised: 12/04/2022 Document Reviewed: 11/27/2022 [employer] Patient Education ? 2023 [employer].[facility] 01-28-2024 History of Present illness Narrative* Frank Morley RN - 01/28/2024 10:00 AM EDT Pt here for brentuximab as scheduled. Labs [...] in stable ambulatory condition. documented in this encounterOhioHealth Grove City Methodist HospitalForsythe10-21-2024 History of Present illness Narrative* Sonya Reyes RN - 01/18/2024 10:02 AM EDT Images from the original note were not included. Call to patient's sister, Avni this morning. Explained that patient did not [...] was given, but nothing can be corrected. Avni states that she does not want Dr. Prado to think that we gave him the other medications without her knowing. Informed Avni that Dr. Prado makes the call on what medications are given, we do not make those decisions alone as nurses. Sheverbalized understanding. Shahida Gooden P [facility] His sister called and said on 12/31/23 at the bottom of the treatment calendar in [facility] it says hegot a full chemo and he did not. She would like that to be corrected. documented in this encounterAdena Pike Medical Center10-18-2024 History of Present illness Narrative* Frank Morley RN - 01/15/2024 11:00 AM EDT Pt here for brentuximab as scheduled. Labs and VS WNL. Pt denies any new or worsening symptoms. Reports he does develop some nausea a few days after treatment but subsides with zofran. Pt seen by yesterday and ok to proceed with todays treatment. Port accessed per protocol. Brisk blood return noted, flushes with ease. Premedicated per may. Saline flushed between each IVP premed. Brentuximab infused over 30 minutes without incident. Port flushed and de accessed per protocol. Pt dc'd in stable ambulatory condition. documented in this [facility]10-18-2024 Miscellaneous Notes* Telephone Encounter - Shahida Gooden - 01/15/2024 8:51 AM EDT PET[place] [facility] [place]26[place] 10:45 AM ARRIVAL ORDER AND CLINICALS FAXED TO [facility] 01/15/24 documented in this encounterAdena Pike Medical Center10-18-2024 Telephone encounter Note* Telephone Encounter - Shahida Giacomo - 01/15/2024 8:51 AM EDT PET[place]ED[place] [facility] [place]/26/[place] 10:45 AM ARRIVAL ORDER AND CLINICALS FAXED TO [facility] 01/15/24 [facility]10-17-[facility] History of Present illness Narrative* DIA Cueto - 01/14/2024 4:01 PM EDT Met with pt & his sister in law Avni, pt has been doing well, feels weak at times but is stayingmobile & moving frequently. Opportunity provided to ask questions, pt does not endorse any at this time; lead technical writer available & following. documented in this encounterAdena Pike Medical Center10-17-2024 History of Present illness Narrative* Frank Morley RN - 01/14/2024 10:12 AM EDT Pt here for f/u CT scan/ lymphoma/ brentuximab with Dr Prado. Orders received: Okay to treat. Wallace Prado MD 01/14/2024 Plan to hold tx after C7. PET scan end of 02/26/2024 F/u 03/04 to review results. Pet Scan ordered for end of 02/20, and f/u scheduled for 03/04. Pt and family v/u documented in this encounterAdena Pike Medical Center10-17-2024 History of Present illness Narrative* Wallace Prado MD - 01/14/2024 9:30 AM EDT Images from the original note were not included. [facility] Rajendra Manrique M.D. Aimee Anderson M.D. Fili Bolanos M.D. Briseida Sena M.D. Chantale Melvin, [facility] Morales Joseph, [facility] Gala Trotter, [facility] Angelika Jones, [facility] ROSIBEL Javier M.D. Santiago Nicolas M.D. Dale Bro M.D. Brandon Banuelos M.D. Alysa Major, [facility] [place], [facility] Jennifer Eaton, [facility] Parul Esteves, [facility] PROGRESS NOTE 01/14/24 History of present illness: The patient is a 67 y.o. male Who presented to [facility] due to some new worsening shortness of breath over the last 2 days. He was transferred to [facility] for further workup. Patient had noted [...] show any malignant cells at this time. [facility] had pleural fluid drained, which did not [...] to improve, he got discharged home now. Ableto walk with a walker continue exercise every [...] total) by mouth in the morning., Disp: ,Rfl: apixaban (ELIQUIS) 5 mg tablet, Take 1 tablet (5 mg total) by mouth in the morning and 1 tablet (5 mg total) before bedtime., Disp: , Rfl: atorvastatin (LIPITOR) 20 mg tablet, Take 1 tablet (20 mg total) by mouth in the morning., Disp: , Rfl: calcium carbonate (OS-SARAH EBTH) 600 mg elemental (1,500 mg) tablet, Take 1 tablet (600 mg total) by mouth daily with breakfast., Disp: , Rfl: digoxin (LANOXIN) 250 mcg tablet, Take 1 tablet (250 mcg total) by mouth in the morning., Disp: , Rfl: magnesium oxide (MAGOX) 400 mg tablet, Take 1 tablet (400 mg total) by mouth in the morning., Disp:30 tablet, Rfl: 6 melatonin 3 mg capsule, [...] or vomiting., Disp: 60 tablet, Rfl: 2 bwmtplokt-ekvopxemwzbuczl-rdgiefea-magnesium hydroxide-simethicone CMPD (MAGIC MOUTHWASH), Swish and spit [...] lymphoma. The patient's path was reviewed at [facility], the tumor was deemed to be EBV positive, immunohistochemistry staining is consistent with Hodgkin's lymphoma. The tumors are CD15, CD30 GATA3 and Charlo positive. These tumors are negative for all other markers tested. Patient has a normal CD4: CD8 ratio. I discussed the results with patient's POA, Joana [id number]. Prior to admission the patient was maintaining a good performance status until about 3 months ago. He developed weight loss, fatigue and profuse night sweats. The patient's energy continues to improve, performance status is now 2. His CT scan after 1 dose of brentuximab already show improvement in retroperitoneal and mediastinallymph node. C3 day 1 brentuximab/ABD, treatment was [...] of 01/2025 F/u 03/04 to review results. Wallace Prado M.D. [facility] [address] [place] [address] documented in this [facility]10-17-2024 Instructions* Patient Instructions* Wallace Prado MD - 01/14/2024 9:30 AM EDT Okay to treat. Wallace Prado MD 01/14/2024 Plan to hold tx after C7. PET scan end of 01/2025 F/u 03/04 to review results. documented in this [facility]10-03-2024 History of Present illness Narrative* Sonya Reyes RN - 2023 10:00 AM EDT Patient is here for Brentuximab infusion as [...] verified and line flushes with ease. NS initiatedas mainline at KVO rate. PO benadryl and tylenol pre medications given. IVPB Aloxi and dexamethasone administered over 15 minutes as ordered and patient tolerated well. Brentuximab infused over 30 min utes without incident and patient tolerated well. Upon completion, IV flushed. Port flushed, heparinized, de-accessed and site covered with band aid. Reviewed next appointment date and time and patient verbalized understanding. Patient discharged in stable condition to private vehicle. documented in this encounterAdena Pike Medical Center09-19-2024 History of Present illness Narrative* DIA Cueto - 12/17/2023 1:32 PM EDT Pleasant pt easily engages with lead technical writer. Pt relayed he is getting stronger, will using walker; encouraged continued use of walker for safety. Pt relayed family provides good support; opportunity provided to ask questions, pt does not endorse any at this time, lead technical writer available & following. documented in this encounterAdena Pike Medical Center09-19-2024 History of Present illness Narrative* Zeina Calzada RN - 12/17/2023 10:00 AM EDT Patient presents for Brentuximab infusion. Denies any new or worsening complaints. Diarrhea has subsided and appetite continues to improve. Labs stable to proceed. Toxicity check completed. Pre Chemocheck completed. Labs reviewed with patient. Vitals stable. Calendar provided. Port accessed per facility protocol, brisk blood return noted, flushed with NS, NS infusing as mainline. Pre medication administered as ordered. Brentuximab infused over 30 minutes as ordered. Tolerated infusion without issues. Port saline locked, de accessed, band aid applied. Discharged in stable condition to family member. documented in this encounterAdena Pike Medical Center09-05-2024 History of Present illness Narrative* Sonya Reyes RN - 12/03/2023 10:11 AM EDT Patient is here in follow up for Hodgkin's lymphoma with Dr. Prado. Orders received that patient is: Okay to treat. Wallace Prado MD 12/03/2023 CT scan early 12/2023 F/u with nc 01/13, to review results and continue tx. Patient will receive Brentuximab only for now. CT orders placed and provided to patient along with number for central scheduling to set up testing. Treatment calendar provided and patient discharged in stable condition to infusion bay for treatment. documented in this encounterAdena Pike Medical Center09-05-2024 History of Present illness Narrative* Elizabeth Burton RN - 12/03/2023 10:00 AM EDT The patient is here today for Brentuximab The patient reports no symptoms from the last infusion and states he feels well Labs reviewed and toxicity check completed with Nahomy YUSUF Port accessed per protocol Brisk blood return noted Normal saline started for mainline at KVO Premeds admin via IVP Brentuximab started and completed over 30 min Patient tolerated well Port flushed and de-accessed Patient discharged in stable condition documented in this encounterAdena Pike Medical Center09-05-2024 History of Present illness Narrative* Wallace Prado MD - 12/03/2023 9:30 AM EDT Images from the original note were not included. [facility] Rajendra Manrique M.D. Aimee Anderson M.D. Fili Bolanos M.D. Briseida Sena M.D. Chantale Melvin, 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 Morales Joseph, 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 Gala Trotter, 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 Angelika Jones, 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 ROSIBEL Javier M.D. Santiago Nicolas M.D. Dale Bro M.D. Brandon Banuelos M.D. Alysa Major, 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 [place], 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 DONNA Eaton APRN-CNP [facility] PROGRESS NOTE 12/03/23 History of present illness: The patient is a 67 y.o. male Who presented to [facility] due to some new worsening shortness of breath over the last 2 days. He was transferred to [facility] for further workup. Patient had noted [...] show any malignant cells at this time. [facility] had pleural fluid drained, which did not [...] to improve, he got discharged home now. Ableto walk with a walker continue exercise every day. His appetite is improving, weight is up to 205-210, stool is not form yet usually loose stool 2 to 3 times a day. Pain scale:0/10, location:NA Recent history: taken from consult on 07/06/23 Objective Physical Examination: Vitals: BP (!) 130/92 Pulse 112 Temp 36.4 C (97.6 F) (Oral) Resp 20 Ht 182.9 cm (6' 0.01 ) Wt 94.8 kg (209 lb) SpO2 95% BMI 28.34 kg/m Physical Exam Constitutional: General: He is [...] any previous visit (from the past 24 hour(s)). Inpatient scheduled medications: Current Outpatient Medications: acetaminophen (TYLENOL EXTRA STRENGTH) 500 mg tablet, Take 2 tablets (1,000 mg total) by mouth in the morning and 2 tablets (1,000 mg total) before bedtime., Disp: , Rfl: amiodarone (PACERONE) 200 mg tablet, 2 tablets (400 mg total) in the morning and 2 tablets (400 mg total) before bedtime., Disp: , Rfl: apixaban (ELIQUIS) 5 mg [...] mg total) by mouth in the morning., Disp:30 tablet, Rfl: 6 melatonin 3 mg capsule, [...] or vomiting., Disp: 60 tablet, Rfl: 2 qwmemxwbl-nfibctxwcuzrryp-xhqmtosh-magnesium hydroxide-simethicone CMPD (MAGIC MOUTHWASH), Swish and spit 5 mL 4 (four) times a day as needed for mouth/gum irritation. (Patient not taking: Reported on 12/03/2023), Disp: 250 mL, Rfl: 1 potassium chloride (KLOR-CON M 20) 20 MEQ CR tablet, Take 1 tablet (20 mEq total) by mouth in the morning and 1 tablet (20 mEq total) before bedtime. Plan to stop the potassium supplementation once diarrhea has resolved.. (Patient not taking: Reported on 12/03/2023), Disp: 60 tablet, Rfl: 6 Diagnosis Problem [...] lymphoma. The patient's path was reviewed at [facility], the tumor was deemed to be EBV positive, immunohistochemistry staining is consistent with Hodgkin's lymphoma. The tumors are CD15, CD30 GATA3 and Charlo positive. These tumors are negative for all other markers tested. Patient has a normal CD4: CD8 ratio. I discussed the results with patient's POA, Joana [id number]. Prior to admission the patient was maintaining a good performance status until about 3 months ago. He developed weight loss, fatigue and profuse night sweats. The patient's energy continues to improve, performance status is now 2. His CT scan after 1 dose of brentuximab already show improvement in retroperitoneal and mediastinallymph node. C3 day 1 brentuximab/ABD, treatment was complicated by significant diarrhea and normal virus infection. C3D15: Back to single agent brentuximab again. Labs are adequate to proceed with brentuximab only. Most recent CT scan September 2023 showed no suspicious intra-abdominal lymphadenopathy. Intrathoracic and mediastinal lymph nodes have also continue to improve. Plan to obtain CT scan of chest abdomen pelvis to monitor his response early 12/2023. Follow-up with me 01/14/24. Above plan was also discussed with patient's sister. Wallace Prado M.D. [facility] [address] [place] [address] documented in this encounterKerbs Memorial HospitalConverged Access09-05-2024 Instructions* Patient Instructions* Wallace Prado MD - 12/03/2023 9:30 AM EDT Okay to treat. Wallace Prado MD 12/03/2023 CT scan early 12/2023 F/u with me 01/13, to review results and continue tx. documented in this encounterAdena Pike Medical Center09-05-2024 Miscellaneous Notes* Addendum Note - Wallace Prado MD - 12/03/2023 9:30 AM EDTAddended by: WALLACE PRADO on: 12/03/2023 10:33 AM Modules accepted: Orders documented in this encounterAdena Pike Medical Center09-05-2024 Note* Addendum Note - Wallace Prado MD - 12/03/2023 9:30 AM EDTAddended by: WALLACE PRADO on: 12/03/2023 10:33 AM Modules accepted: Orders [facility]08-22-20[facility] History of Present illness Narrative* DIA Cueto - 11/19/2023 12:50 PM EDT Met with pt sister in law Gould, provided address to [facility] to [facility] of information to utilize [facility]. Yardage Estimator met pleasant pt who informs he continues with [facility], pt using exercise bike at home home as well; support & encouragement provided. Pt does not endorse any current needs; opportunity provided to ask questions, pt does not endorse any at this time, lead technical writer available & following. documented in this encounterAdena Pike Medical Center08-22-2024 History of Present illness Narrative* Frank Morley RN - 11/19/2023 10:30 AM EDT Pt here for brentuximab as scheduled. Pt reports he is feeling well today. Reports still some weakness but ambulating ok with walker and doing exercises at home. Reports some mild constipation but takes stool softener and that helps. Pt denies any new or worsening symptoms. VS and Labs reviewed andok for treatment. Port accessed per protocol. Brisk blood return noted. Flushes with ease. NS started at KVO. Premedicated with IVPB decadron/aloxi over 15 minutes, IVP benadryl, and PO tylenol. Brentuximab infused over 30 minutes. Pt tolerated well. Line flushed. Port de accessed and flushed per protocol. Dc'd in stable ambulatory condition. documented in this encounterAdena Pike Medical Center08-08-2024 History of Present illness Narrative* DIA Cueto - 11/05/2023 11:10 AM EDT Met with pt who relayed he is still feeling weak due to 12 day hospital admission, he is currently utilizing [facility]. Pt using walker assist. Pt staying with his sister in [place]. Pt said he really like using the exercise bike when at [place]. Discussed outpt therapy as option post [facility] services. Support & encouragement provided. Pt does not endorse any current needs; opportunity providedto ask questions, pt does not endorse any at this time; lead technical writer available & following. documented in this encounterAdena Pike Medical Center08-08-2024 History of Present illness Narrative* Elizabeth Burton RN - 11/05/2023 10:00 AM EDT The patient is here today for Brentuximab The patient reports no symptoms from the last infusion and states he feels well Labs reviewed and toxicity check completed with Nahomy YUSUF Port accessed per protocol Brisk blood return noted Normal saline started for mainline at KVO Premeds admin via IVP Brentuximab started and completed over 30 min Patient tolerated well Port flushed and de-accessed Patient discharged in stable condition documented in this encounterAdena Pike Medical Center07-25-2024 History of Present illness Narrative* Sonya Reyes RN - 10/22/2023 10:18 AM EDT Patient is here in follow up with Dr. Prado for Hodgkin's lymphoma today. Orders for: Continue brentuximab only for now. F/u in early 11/2023. Follow up scheduled for 12/03/23 to assess if patient can resume AVD. Treatment calendar provided patient discharged in stable condition to infusion bay for brentuximab only today. documented in this encounterAdena Pike Medical Center07-25-2024 History of Present illness Narrative* Norman Sosa RN - 10/22/2023 10:00 AM EDT Pt here for D15C3 AVD + brentuximab. Pt seen by Dr. Prado today, brentuximab only today. Pt had recent hospitalization with significant weight loss and increased weakness. Port accessed per protocol, brisk blood return noted, flushes without difficulty. Pt premedicated per orders. Brentuximab administered over 30 minutes per order, pt tolerated well. Port de-accessed and saline locked per protocol.Pt verbalized understanding of future appointments. Pt discharged ambulatory with walker in stable condition. documented in this encounterAdena Pike Medical Center07-25-2024 History of Present illness Narrative* Wallace Prado MD - 10/22/2023 9:30 AM EDT Images from the original note were not included. [facility] Rajendra Manrique M.D. Aimee Anderson M.D. Fili Bolanos M.D. Briseida Sena M.D. Chantale Melvin, 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 Morales Joseph, 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 Gala Trotter, 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 Angelika Jones, 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 ROSIBEL Javier M.D. Santiago Nicolas M.D. Dale Bro M.D. Brandon Banuelos M.D. Alysa Major, [facility] [place], [facility] Jennifer Eaton, [facility] Parul Esteves, [facility] PROGRESS NOTE 10/22/23 History of present illness: The patient is a 67 y.o. male Who presented to [facility] due to some new worsening shortness of breath over the last 2 days. He was transferred to [facility] for further workup. Patient had noted [...] show any malignant cells at this time. [facility] had pleural fluid drained, which did not find any malignant cells. Some liver lesions were also noted incidentally on CTA chest. He is currently being treated for postobstructive pneumonia. Cardiology has been consulted due to concern for shunting. Oncology is now asked to evaluate secondary to concern for cancer. Brentuximab single agent started 07/2023 (poor performance status) Interval History: The patient received 1st dose of AVD/brentuximab 4 weeks ago, treatment was complicated with norovirus infection and significant diarrhea. He has 8-10 episodes of diarrhea day. Before AVD treatment, he was able to walk up steps gaining weight, after the diarrhea and hospitalization he is back to walking with a walker again. His appetite is improving but still poor. Stool is not form yet usually loose stool 2 to 3 times a day. Pain scale:0/10, location:NA Recent history: taken from consult on 07/06/23 Objective Physical Examination: Vitals: BP 95/71 Pulse 116 Temp 37.2 C (98.9 F) (Oral) Resp 20 Ht 182.9 cm (6' 0.01 ) Wt 89 kg (196 lb 3.2 oz) SpO2 94% BMI 26.60 kg/m Physical Exam Constitutional: General: He is [...] any previous visit (from the past 24 hour(s)). Inpatient scheduled medications: Current Outpatient Medications: amiodarone (PACERONE) 200 mg tablet, 2 tablets (400 mg total) in the morning and 2 tablets (400 mg total) before bedtime., Disp: , Rfl: apixaban (ELIQUIS) 5 mg tablet, Take 1 tablet (5 mg total) by mouth in the morning and 1 tablet (5 mg total) before bedtime., Disp: , Rfl: atorvastatin (LIPITOR) 20 mg tablet, Take 1 tablet (20 mg total) by mouth in the morning., Disp: , Rfl: digoxin (LANOXIN) 250 mcg tablet, Take 1 tablet (250 mcg total) by mouth in the morning., Disp: , Rfl: dlmfeludo-norolpddtauaitk-dbfgfkup-magnesium hydroxide-simethicone CMPD (MAGIC MOUTHWASH), Swish and spit 5 mL 4 (four) times a day as needed for mouth/gum irritation., Disp: 250 mL, Rfl: 1 magnesium oxide (MAGOX) 400 mg tablet, Take 1 tablet (400 mg total) by mouth in the morning., Disp:30 tablet, Rfl: 6 metoprolol succinate XL (TOPROL XL) 25 mg [...] or vomiting., Disp: 60 tablet, Rfl: 2 potassium chloride (KLOR-CON M 20) 20 MEQ CR tablet, Take 1 tablet (20 mEq total) by mouth in the morning and 1 tablet (20 mEq total) before bedtime. Plan to stop the potassium supplementation once diarrhea has resolved.., Disp: 60 tablet, Rfl: 6 No current facility-administered medications for this visit. Facility-Administered Medications Ordered in Other Visits: brentuximab vedotin (ADCETRIS) 120 mg in sodium chloride 0.9 % 100 mL chemo IVPB, 120 mg, intravenous, Once, Wallace Prado MD dexAMETHasone (DECADRON) 12 mg, palonosetron (ALOXI) 0.25 mg in sodium chloride 0.9 % 50 mL IVPB, ,intravenous, Once, Wallace Prado MD, Last Rate: 232 mL/hr at 10/22/23 1039, New Bag at 10/22/23 1039 sodium chloride 0.9 % infusion, 25 mL/hr, intravenous, Continuous PRN, Wallace Prado MD, Last Rate: 25 mL/hr at 10/22/23 1033, 25 mL/hr at 10/22/23 1033 Diagnosis Problem list: Patient Active Problem List [...] lymphoma. The patient's path was reviewed at [facility], the tumor was deemed to be EBV positive, immunohistochemistry staining is consistent with Hodgkin's lymphoma. The tumors are CD15, CD30 GATA3 and Charlo positive. These tumors are negative for all other markers tested. Patient has a normal CD4: CD8 ratio. I discussed the results with patient's POA, Joana [id number]. Prior to admission the patient was maintaining a good performance status until about 3 months ago. He developed weight loss, fatigue and profuse night sweats. The patient's energy continues to improve, performance status is now 2. His CT scan after 1 dose of brentuximab already show improvement in retroperitoneal and mediastinallymph node. C3 day 1 brentuximab/ABD, treatment was complicated by significant diarrhea and normal virus infection. C3D15: Back to single agent brentuximab again. Plan to continue cycle 4 with brentuximab only. Most recent CT scan September 2023 showed no suspicious intra-abdominal lymphadenopathy. Intrathoracic and mediastinal lymph nodes have also continue to improve. Follow-up with in 6-8 weeks. Wallace Prado M.D. [facility] [address] [place] [address] documented in this encounterKerbs Memorial HospitalConverged Access07-25-2024 Instructions* Patient Instructions* Wallace Prado MD - 10/22/2023 9:30 AM EDT Continue brentuximab only for now. F/u in early 11/2023. documented in this encounterAdena [facility]ike [facility] Center07-22-2024 NotePatient Education Nutrition BMI for Adults What is BMI? Body mass index (BMI) is a number that is calculated from a person's weight and height. BMI can help estimate how much of a person's weight is composed of fat. BMI does not measure body fat directly.Rather, it is an alternative to procedures that [...] your height. Both height and weight are measured,and the BMI is calculated from those numbers. This can be done either in [place] or metric measurements. Note that charts and online BMI calculators are available to help you find your BMI quickly and easily without having to do these calculations yourself. To calculate your BMI in [place] measurements: 1. Measure your weight in [...] meters squared number. In this example: 70 ?3.1 = 22.6. This is your BMI. What [...] for Disease Control and Prevention: www.cdc.gov ? [place] Heart Association: www.heart.org ? National Heart, Lung, and Blood [place]: www.nhlbi.nih.gov Summary ? Body mass index (BMI) is a number that is calculated from a person's weight and height. ? BMI may help estimate how much of a person's weight is composed of fat. BMI can help identify those who may be at higher risk for certain medical problems. ? BMI can be measured using [place] measurements or metric measurements. ? BMI charts are used to identify whether you are underweight, normal weight, overweight, or obese. This information is not intended to replace advice given to you by your health care provider. Make sure you discuss any questions you have with your health care provider. Document Revised: 12/07/2019 Document Reviewed: 10/14/2019 [employer] Patient Education ? 2022 [employer] 10-13-2023 History of Present illness Narrative* DIA Cueto - 10/13/2023 3:07 PM EDT Call received from pt sister in law Avni inquiring on ramp for home where pt is staying; provided contact info for DME's. documented in this encounterAdena Pike [facility] Center07-11-2024 History of Present illness Narrative* Nahomy Patel RN - 10/08/2023 7:41 AM EDT Images from the original note were not included. MD Nahomy Molina RN Hold tx. I will see him in two weeks then decide. Previous Messages ----- Message ----- From: Nahomy Patel RN Sent: 10/07/2023 3:03 PM EDT To: Wallace Prado MD Subject: admission update Patient's sister called to cancel treatment tomorrow. He is still admitted with diarrhea, nausea and not eating. Just FYI. He has a follow up in two weeks. documented in this encounterAdena Pike [facility] Center07-10-2024 History of Present illness Narrative* Nahomy Patel RN - 10/07/2023 3:03 PM EDT Patient's sister called to cancel treatment tomorrow. He is still admitted with diarrhea, nausea and not eating. He has a follow up in two weeks with Dr. Prado documented in this encounterAdena Pike Medical Center07-05-2024 Miscellaneous Notes* Telephone Encounter - Sean Ward RN - 10/02/2023 5:51 PM EDT Diarrhea for the second full day. Vary watery. Started imodium. Stated that his stools have turned black this morning. 32 os a day of Gatorade for the last 2 days. [place] cancer. States he aches all over. No fever. Taking Imodium. Stomach pain. 2 chewable Pepto-Bismol tablets yesterday and 2 tablets today. . Reason for Disposition [1] Drinking very little AND [2] dehydration suspected (e.g., no urine > 12 hours, very dry mouth, very lightheaded) Protocols used: Cancer - Xalrjwnb-N-BG Per protocol Patient referred to the ED for assessment. They will go to [facility]. documented in this encounterAdena Pike Medical Center07-05-2024 Telephone encounter Note* Telephone Encounter - Sean Ward RN - 10/02/2023 5:51 PM EDT Diarrhea for the second full day. Vary watery. Started imodium. Stated that his stools have turned black this morning. 32 os a day of Gatorade for the last 2 days. [place] cancer. States he aches all over. No fever. Taking Imodium. Stomach pain. 2 chewable Pepto-Bismol tablets yesterday and 2 tablets today. . Reason for Disposition [1] Drinking very little AND [2] dehydration suspected (e.g., no urine > 12 hours, very dry mouth, very lightheaded) Protocols used: Cancer - Udcpamlr-T-OM Per protocol Patient referred to the ED for assessment. They will go to [facility]. [facility]07-[facility] Miscellaneous Notes* Telephone Encounter - Tracy Whatley - 10/02/2023 5:44 PM EDT Error Please documented in this encounterAdena Pike Medical Center07-05-2024 Telephone encounter Note* Telephone Encounter - Tracy Whatley - 10/02/2023 5:44 PM EDT Error Please [employer]07-03-2024 Miscellaneous Notes* Telephone Encounter - Dwight Kirkpatrick RN - 09/30/2023 6:48 PM EDT ----- Message from Andree sent at 09/30/2023 5:53 PM EDT ----- Contact is calling to let nurse know that patient is having diarrhea Emergency Contact is not with patient wants to do a 3 way call * Telephone Encounter - Dwight Kirkpatrick RN - 09/30/2023 6:48 PM EDT Patient had 1st round of chemo last week. Has had 8-10 episodes of watery diarrhea. No blood in stools. Has drank a 28 oz bottle of gatorade since last night. Eating some solids. Is fatigued, dizzy body aches, shaky. Unsteady on feet. Having joint pain arms leg neck. Pt. Of Dr. Prado. Question is if he can take Immodium to assist with diarrhea relief. Reason for Disposition [1] SEVERE diarrhea (e.g., 7 or more times / day more than normal) AND [2] receiving chemotherapy or radiation therapy (within past 4 weeks) Protocols used: Cancer - Qsdabvtg-T-TJ * Telephone Encounter - Dwight Kirkpatrick RN - 09/30/2023 6:48 PM EDT Called safety person provider Chantale Melvin CNP and reviewed above patient information. Chantale recommends patient can take Immodium per package instructions. Chantale also advises Patient should make sure to drink fluids and eat when he can. If the diarrhea doesn't slow down by tomorrow then patient should call safety person provider for further instructions. * Telephone Encounter - Dwight Kirkpatirck RN - 09/30/2023 6:48 PM EDT Called Joana and provided advice as recommended above by safety person provider Chantale. Joana agreeable topass along the advice and will call back if needed. documented in this encounterAdena Pike [facility] Center07-03-2024 Telephone encounter Note* Telephone Encounter - Dwight Kirkpatrick RN - 09/30/2023 6:48 PM EDT ----- Message from Andree sent at 09/30/2023 5:53 PM EDT ----- Contact is calling to let nurse know that patient is having diarrhea Emergency Contact is not with patient wants to do a 3 way call [facility]07-03-[facility] Telephone encounter Note* Telephone Encounter - Dwight Kirkpatrick RN - 09/30/2023 6:48 PM EDT Patient had 1st round of chemo last week. Has had 8-10 episodes of watery diarrhea. No blood in stools. Has drank a 28 oz bottle of gatorade since last night. Eating some solids. Is fatigued, dizzy body aches, shaky. Unsteady on feet. Having joint pain arms leg neck. Pt. Of Dr. Prado. Question is if he can take Immodium to assist with diarrhea relief. Reason for Disposition [1] SEVERE diarrhea (e.g., 7 or more times / day more than normal) AND [2] receiving chemotherapy or radiation therapy (within past 4 weeks) Protocols used: Cancer - Blzeyfqc-N-SW [facility]07-03-20[facility] Telephone encounter Note* Telephone Encounter - Dwight Kirkpatrick RN - 09/30/2023 6:48 PM EDT Called safety person provider Chantale Melvin CNP and reviewed above patient information. Chantale recommends patient can take Immodium per package instructions. Chantale also advises Patient should make sure to drink fluids and eat when he can. If the diarrhea doesn't slow down by tomorrow then patient should call safety person provider for further instructions. [facility] [id number] Telephone encounter Note* Telephone Encounter - Dwight Kirkpatrick RN - 09/30/2023 6:48 PM EDT Called Joana and provided advice as recommended above by safety person provider Chantale. Joana agreeable topass along the advice and will call back if needed. [facility] [id number] History of Present illness Narrative* Frank Morley RN - 09/24/2023 10:00 AM EDT Pt here for C1 AVD + brentuximab. Pt reports he feels well today. Reports some fatigue, and states he did have mild diarrhea a few days ago but denies any today. Toxicity and chemo check complete. [facility] wnl for treatment. Pt reports he was recently started on amiodarone and drug interactions checked- Dr. Prado notified and ok to proceed with treatment. Port accessed per protocol. Brisk blood return verified. Flushes with ease. NS started at KVO. Premedicated with IVPB dec/aloxi. IVP benadryl, and PO tylenol. Adriamycin administered per protocol over 10 mins. Blood return present with eachpush. Pt tolerated well. Velban infused over 10 minutes. Line flushed. Dacarbaxine infused over 30 m inutes. Line flushed. Lastly, brentuximab infused over 30 minutes without incident. Pt tolerated treatment well. Port flushed and de accessed per protocol. Discharge instruction reviewed with pt and sister. All questions answered. Anti emetics and steroid sent to pt's pharmacy. Pt dc'd in stable con dition with treatment calendar. documented in this encounterAdena Pike [facility] Center06-26-2024 History of Present illness Narrative* Nahomy Patel RN - 09/23/2023 10:02 AM EDT Labs routed to Dr. Prado to review for chemo tomorrow. documented in this encounterAdena Pike Medical Center06-13-2024 History of Present illness Narrative* Nahomy Patel RN - 09/10/2023 10:49 AM EDT Patient saw Dr. Prado today for follow up. Okay to treat with brentuximan alone today. Wallace Prado MD 09/10/2023 C3 will be brentuximab/AVD. F/u every 2-4 weeks. He will need weekly labs per homecare once c3 avd starts. Orders provided. Follow up scheduled in 4 weeks. Patient given calendar, verbalized understanding of future appointments. documented in this encounterAdena Pike Medical Center06-13-2024 History of Present illness Narrative* Sonya Reyes RN - 09/10/2023 10:00 AM EDT Patient is here for Brentuximab infusion as scheduled. OK to treat today per Dr. Prado. Patient will proceed with full regimen with cycle 3. Toxicity check per flowsheet data. Pre chemo check completedwith Frank Olivia RN. Port accessed under sterile procedure with brisk blood return verified and line flushes with ease. NS initiated as mainline at KVO rate. PO benadryl and tylenol pre medications given. IVPB Aloxi and dexamethasone administered over 15 minutes as ordered and patient tolerated well. Brentuximab infused over 30 minutes without incident and patient tolerated well. Upon completion, IVflushed. Port flushed, heparinized, de-accessed and site covered with band aid. Treatment calendar and lab orders provided and patient verbalized understanding that he will get labs weekly after start of cycle 3 AVD with Brentuximab d/t eliquis use. Patient discharged in stable [facility]. documented in this encounterAdena Pike Medical Center06-13-2024 History of Present illness Narrative* Wallace Prado MD - 09/10/2023 9:45 AM EDT Images from the original note were not included. [facility] Rajendra Manrique M.D. Aimee Anderson M.D. Fili Bolanos M.D. Briseida Sena M.D. Chantale Melvin, [facility] Morales Joseph, [facility] Gala Trotter, [facility] Angelika Jones, [facility] ROSIBEL Javier M.D. Santiago Nicolas M.D. Dale Bro M.D. Brandon Banuelos M.D. Alysa Major, [facility] Carmen Park, [facility] Jennifer Eaton, [facility] Parul Esteves, [facility] PROGRESS NOTE 09/10/23 History of present illness: The patient is a 67 y.o. male Who presented to [facility] due to some new worsening shortness of breath over the last 2 days. He was transferred to [facility] for further workup. Patient had noted [...] show any malignant cells at this time. Lisa had pleural fluid drained, which did not find any malignant cells. Some liver lesions were also noted incidentally on CTA chest. He is currently being treated for postobstructive pneumonia. Cardiology has been consulted due to concern for shunting. Oncology is now asked to evaluate secondary to concern for cancer. Brentuximab single agent started 07/2023 (poor performance status) Interval History: The patient had 1 dose of brentuximab treatment so far and 4 days of high-dose Decadron. He is due for his 4th dose of brentuximab treatment only. Over the past 2 months he is getting much better, able to ambulate with walker, takes Lasix occasionally. Gaining some weight too. Denies significant diarrhea. No significant nausea or vomiting. Rash subsided. Pain scale:0/10, location:NA Recent history: taken from consult on 07/06/23 Objective Physical Examination: Vitals: BP 99/70 Pulse 120 Temp 36.7 C (98 F) (Oral) Resp 20 Ht 185.4 cm (6' 0.99 ) Wt 102.1 kg (225 lb) SpO2 93% BMI 29.69 kg/m Physical Exam Constitutional: General: He is [...] any previous visit (from the past 24 hour(s)). Inpatient scheduled medications: Current Outpatient Medications: apixaban (ELIQUIS) 5 mg tablet, Take 1 tablet (5 mg total) by mouth in the morning and 1 tablet (5 mg total) before bedtime., Disp: , Rfl: atorvastatin (LIPITOR) 20 mg tablet, Take 1 tablet (20 mg total) by mouth in the morning., Disp: , Rfl: bumetanide (BUMEX) 2 mg tablet, HOLD until outpatient follow-up with Cardiology, Disp: , Rfl: ciprofloxacin HCl (CIPRO) 500 mg tablet, Take 1 tablet (500 mg total) by mouth in the morning and 1tablet (500 mg total) before bedtime., Disp: , Rfl: dexAMETHasone (DECADRON) 4 mg tablet, Take 2 tablets (8 mg) by mouth once daily on days 2, 3, and 4., Disp: 60 tablet, Rfl: 2 ipratropium-albuteroL (DUONEB) 0.5 mg-3 mg(2.5 mg base)/3 mL nebulizer, Inhale 3 mL by nebulizationevery 6 (six) hours while awake., Disp: , Rfl: lidocaine-prilocaine (EMLA) cream, Apply 1 Application topically as needed for pain., Disp: 30 g, Rfl: 0 magnesium hydroxide (DULCOLAX, MAGNESIUM HYDROXIDE,) 400 mg/5 mL suspension, Take 15 mL by mouth daily as needed (constipation)., Disp: 15 mL, Rfl: 0 metoprolol succinate XL (TOPROL XL) 25 mg 24 hr tablet, Take 1 tablet (25 mg total) by mouth in themorning., Disp: , Rfl: mirtazapine (REMERON) 15 mg tablet, Take 1 tablet (15 mg total) by mouth nightly., Disp: , Rfl: ondansetron (ZOFRAN) 8 mg tablet, Starting on day 3, take 1 tablet by mouth twice daily as needed for severe nausea or vomiting., Disp: 60 tablet, Rfl: 2 potassium chloride (K-TAB,KLOR-CON) 20 mEq CR tablet, HOLD until outpatient follow-up with Cardiology, Disp: , Rfl: prochlorperazine (COMPAZINE) 10 mg tablet, Take 1 tablet by mouth every 6 hours as needed for mild nausea or vomiting., Disp: 60 tablet, Rfl: 2 No current facility-administered medications for this visit. 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 Paroxysmal atrial fibrillation on Eliquis Mr. Haywood is a 67 y.o. male with recent diagnosis of classic Hodgkin's lymphoma. The patient's path was reviewed at [facility], the tumor was deemed to be EBV positive, immunohistochemistry staining is consistent with Hodgkin's lymphoma. The tumors are CD15, CD30 GATA3 and Charlo positive. These tumors are negative for all other markers tested. Patient has a normal CD4: CD8 ratio. I discussed the results with patient's POA, Joana [id number]. Prior to admission the patient was maintaining a good performance status until about 3 months ago. He developed weight loss, fatigue and profuse night sweats. The patient's energy continues to improve, performance status is now 2. His CT scan after 1 dose of brentuximab already show improvement in retroperitoneal and mediastinallymph node. C3 will be brentuximab/ABD Since the patient is on Eliquis, check CBC weekly after cycle 3. Hold Eliquis once platelet count is less than 50. Follow-up with in 4 weeks. Wallace Prado M.D. [facility] [address] [place] [address] documented in this encounterAdena Pike Medical Center06-13-2024 Instructions* Patient Instructions* Wallace Prado MD - 09/10/2023 9:45 AM EDT Okay to treat. Wallace Prado MD 09/10/2023 C3 will be brentuximab/AVD. F/u every 2-4 weeks. documented in this encounterAdena Pike Medical Center06-13-2024 History of Present illness Narrative* Nahomy Patel RN - 09/10/2023 7:46 AM EDT Labs scanned into media and routed to Dr. Prado to review. documented in this [facility]06-07-2024 History of Present illness Narrative* Frank Morley RN - 09/04/2023 11:07 AM EDT Images from the original note were not included. [facility]ed with [facility]. Pt is not taking allopurinol. Facility is going to try a benadryl ointment to see if that helps. Rash not any worse, just c/o of itching. MD Frank Molina, RN If he is taking allopurinol, he should stop it. Previous Messages ----- Message ----- From: Frank Morley RN Sent: 09/03/2023 3:15 PM EDT To: Wallace Prado MD Subject: rash [facility] called to report that Jc has developed a red pin point like rash to his abdomen, and left upper leg. Not painful but is very itchy/irritated. Pt states is started Thursday. He Just had C2of Brentuximab on 08/26. Please advise. Thanks. documented in this [facility]05-30-2024 History of Present illness Narrative* Sonya Reyes RN - 08/27/2023 12:38 PM EDT Patient is seen in follow up for lymphoma with Alysa Gibson CNP today. Orders for: Labs reviewed, ok for treatment, Brentuximab only Please give patient hydration today along with treatment Follow up prior to cycle 3 Patient is scheduled to see Dr. Prado on 09/10/23. Treatment calendar provided. Patient discharged in stable condition to [facility] for treatment. documented in this encounterAdena Pike [facility] Center05-30-2024 History of Present illness Narrative* Norman Sosa RN - 08/27/2023 12:00 PM EDT Pt here for Berntuximab and hydration. Pre-chemo checklist and toxicity screen completed per protocol. OK to treat per Dr. Prado. Labs reviewed. Port accessed per protocol, brisk blood return noted, flushes without difficulty. Premedicated per orders. NS infused over 2 hours concurrently with brentuximab over 30 minutes. Pt tolerated well. Port de-accessed and heparinized per protocol. Calendar provided. Pt discharged in w/c in stable condition. documented in this encounterAdena Pike Medical Center05-30-2024 History of Present illness Narrative* DONNA Tran - 08/27/2023 11:30 AM EDT Images from the original note were not included. [facility] [address] [place] [id number] 08/27/23 Chief Complaint Patient presents with Follow-up History of Present Illness: The patient is a 67 y.o. male Who presented to [facility] due to some new worsening shortness of breath over the last 2 days. He was transferred to [facility] for further workup. Patient had noted [...] show any malignant cells at this time. [facility] had pleural fluid drained, which did not find any malignant cells. Some liver lesions were also noted incidentally on CTA chest. He is currently being treated for postobstructive pneumonia. Cardiology has been consulted due to concern for shunting. Oncology is now asked to evaluate secondary to concern for cancer. Brentuximab single agent started 07/31/2023 (poor performance status); if PS improves, may consider adding AVD. Subjective/interval events: Torsten Haywood is a 67 y.o. year old male who is an established patient seen today for follow-up in the Hematology and Medical Oncology clinic. Patient presents today for evaluation and review of labs prior to cycle 2 day 1 of Treatment consisting of brentuximab. Patient currently resides at the [facility]. Due to poor performance status AVD has not been added. No diarrhea since last tx; Stools are soft not diarrhea. Phone call was received from family member that patient was in AFib and had a possible syncopal episode. Patient denies passing out or feeling faint but extremely weak at the end of physical therapy session. Was adamant that he did not feel like he was passing. --Denies any chest pain or shortness of breath Feeling good. No longer having pain. Doing physical therapy daily at [facility]. He reports he can stand and walk short distances with his therapist. Past Medical History: Diagnosis Date Coronary artery disease Hypertension Past Surgical History: Procedure Laterality Date BRONCHOSCOPY N/A 06/26/2023 Performed by Hammad Salinas MD at [facility] CORONARY ARTERY BYPASS GRAFT W/ CARDIAC VALVE SURGERY CYSTECTOMY ENDOBRONCHIAL ULTRASOUND BRONCHOSCOPY Right 06/26/2023 Performed by Hammad Salinas MD at [facility] SPLENECTOMY No Known Allergies Medication List Accurate as of August 27, 2023 2:43 PM. If you have any questions, ask your nurse or doctor. Medications Continued This Visit apixaban 5 mg tablet Refills: 0 Dose: 1 tablet Commonly known as: ELIQUIS aspirin 81 mg Refills: 0 Dose: 81 mg atorvastatin 20 mg tablet Refills: 0 Dose: 1 tablet Commonly known as: LIPITOR bumetanide 2 mg tablet Refills: 0 Signed by: Nik Vincent MD HOLD until outpatient follow-up with Cardiology Commonly known as: BUMEX carvediloL 3.125 mg tablet Refills: 0 Signed by: Nik Vincent MD HOLD until outpatient follow-up with Cardiology Commonly known as: COREG ciprofloxacin HCl 500 mg tablet Refills: 0 Dose: 500 mg Commonly known as: CIPRO * dexAMETHasone 4 mg tablet Quantity: 40 tablet Refills: 0 For diagnoses: 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 Wallace Prado MD Take 2 tablets (8 mg) by mouth once daily on days 2, 3, and 4. Commonly known as: DECADRON ipratropium-albuteroL 0.5 mg-3 mg(2.5 mg base)/3 mL nebulizer Refills: 0 For diagnoses: Mass of lung Dose: 3 mL Signed by: Nik Vincent MD 3 mL, nebulization, Every 6 hours while awake Commonly known as: DUONEB magnesium hydroxide 400 mg/5 mL suspension Quantity: 15 mL Refills: 0 Doctor's comments: Home medication Dose: 15 mL Signed by: Landry Harden MD 15 mL, oral, Daily PRN Commonly known as: DULCOLAX (MAGNESIUM HYDROXIDE) metoprolol succinate XL 25 mg 24 hr tablet Refills: 0 Dose: 25 mg Signed by: Nik Vincent MD 25 mg, oral, Daily Commonly known as: TOPROL XL mirtazapine 15 mg tablet Refills: 0 Dose: 15 mg Commonly known as: REMERON ondansetron 8 mg tablet Quantity: 60 tablet Refills: 2 For diagnoses: 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 Wallace Prado MD Starting on day 3, take 1 tablet by mouth twice daily as needed for severe nausea or vomiting. 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 Wallace Prado MD Take 1 tablet by mouth every 6 hours as needed for mild nausea or vomiting. Commonly known as: COMPAZINE sacubitriL-valsartan 24-26 mg tablet Refills: 0 Signed by: Nik Vincent MD HOLD until outpatient follow-up with Cardiology Commonly known as: ENTRESTO * This list has 2 medication(s) that are the same as other medications prescribed for you. Read thedirections carefully, and ask your doctor or other care provider to review them with you. Review of Symptoms as below unless otherwise stated in HPI ROS: 10+ review of system was performed and pertinent positive and negative findings are mentioned abovein the Subjective/Interval History ECO- Symptomatic; fully ambulatory Physical exam: Vitals: BP 94/60 Pulse 112 Temp 36.7 C (98.1 F) (Oral) Resp 18 Wt 94.8 kg (209 lb) Comment:verbal from pt SpO2 98% BMI 27.58 kg/m Body mass index is 27.58 kg/m . Wt Readings from Last 3 Encounters: 08/27/23 94.8 kg (209 lb) 08/13/23 90.1 kg (198 lb 9.6 oz) 08/12/23 90.3 kg (199 lb) Physical Exam Constitutional: Appearance: Normal appearance. Cardiovascular: Rate and Rhythm: Regular rhythm. Tachycardia present. Heart sounds: Normal heart sounds. Pulmonary: Effort: Pulmonary effort is normal. Breath sounds: Normal breath sounds. Abdominal: General: Bowel sounds are normal. Palpations: Abdomen is soft. Neurological: General: No focal deficit present. Mental Status: He is alert and oriented to person, place, and time. Psychiatric: Mood and Affect: Mood normal. Behavior: Behavior normal. Thought Content: Thought content normal. Right chest port Recent imaging: CT abdomen and pelvis with contrast Result Date: 08/12/2023 Narrative: History: Bowel obstruction suspected Exam/Technique: CT images of abdomen and pelvis were obtained following intravenous contrast injection. CT does automated exposure control was utilized. All CT scans at this facility use dose modulation, iterative reconstruction, and/or weight based dosing when appropriate to reduce radiation dose to as low as reasonably achievable. Comparison: CT abdomen pelvis 07/06/2023 Findings: The large infracarinal mass is less prominent in size compared to prior exam it currently measures 6.2 x 3.2 cm compared to prior measurements of 7.5 x 4.1 cm. There is stable small right side pleural effusion with right lung basal airspace disease likely atelectasis. There are severe coronary artery calcification with coronary artery bypass surgical changes. The focal hypodense right hepatic lobe lesions are less prominent in today's exam. The most prominent at the right hepatic lobe currently measures 1.1 cm compared to prior measurements of 1.4 cm axial image #20 series 2. There are surgical changes of cholecystectomy. Pancreas is unremarkable. Spleen is absent. There is interval decrease in size of the retroperitoneal and left paraortic lymphadenopathy at the level of the left renal vascular currently measures 12 mm compared to prior measurement of 16mm at its short axis. 4 mm calcified nonobstructing left side renal stones are stable. There is circumferential mucosal wall thickening and focal is intact stranding at the proximal sigmoid colon consistent with diverticulitis. There is no localized abscess or free air. The remaining bowel loops are unremarkable. Urinary bladder is grossly unremarkable. IMPRESSION: There is interval improvement in the degree of retroperitoneal and mediastinal lymphadenopathy as described above. Also, there is less prominence of the hepatic density observations. Findings are likely sequelae of therapeutic intervention for metastatic disease. Clinical correlation is advised. There is interval development of acute sigmoid diverticulitis. There is stable 4 mm calcified nonobstructing left-sided renal stone. Finalized by Arianne Tran MD on 08/12/2023 8:[address] skull to thigh Result Date: 08/09/2023 Narrative: PET CT SKULL TO THIGH CLINICAL HISTORY:Lymphoma, unspecified body region, unspecified lymphoma type (CMS-HCC) initial staging COMPARISON: None. TECHNIQUE: PET/CT was performed following intravenous administration of 14.6 mCi F-18 FDG with images obtained from the skull base through the mid thighs. Fasting glucose was 123 mg/dL at the time of administration. CT was performed utilizing free breathing technique and nondiagnostic collimation for the purposes attenuation correction and localization of radiotracer activity. FINDINGS: Physiologic distribution of the neck and frontal soft tissues. No abnormal enlarged cervical, supraclavicular or axillary lymph nodes. Moderate right pleural effusion. There is avid mildly enlarged paratracheal lymph nodes. There is avid and enlarged subcarinal lymph node with maximum SUV of 7.9. There is avid right hilar lesion with maximum SUV 8.3 with volume loss and atelectatic change of the middle lobe. No abnormal uptake seen within the pleuralfluid on the right. Physiologic bowel and urinary activity. There are multiple mildly avid and enlarged winsome hepatic and retroperitoneal para-aortic lymph nodes the largest is a avid paracaval lymphnode with maximum SUV of 7.6. There is mild uptake and wall thickening of the sigmoid colon which may be reactive or inflammatory. Small fat-containing left inguinal hernia. No abnormal osseous accumulation is seen. IMPRESSION: 1. Avid subcarinal and right hilar lesions compatible with history of neoplasm. There is volume loss and atelectatic changes of the middle lobe. 2. Multiple mildly enlarged and mildly avid retroperitoneal para-aortic and pericaval lymph nodes suspicious for disease as well. Finalized by Sean Osorio MD on 08/09/2023 1:42 PM IR Port insertion more than 5 years Result Date: 08/05/2023 Narrative: CHEST POWER PORT PLACEMENT DATE: 08/05/2023 10:50 PM ATTENDING: Dr. Ashby CLINICAL HISTORY: Lymphoma, needs chest port for chemotherapy. SEDATION: The patient?s cardiopulmonary status was evaluated and the patient is suitable for moderate sedation. During the course of the procedure, the patient was sedated with Fentanyl 100 mcg intravenously and Versed 1 mg intravenously, while being monitored with ECG, blood pressure monitoring, and pulse oximeter by appropriately trained personnel,for a total sedation time of 30 minutes of [id number] moderate sedation was provided by the same personnel. Following the procedure, the patient was recovered according to the moderate sedation policy. RADIATION DOSE: Automatic radiation exposure lowering techniques were utilized. All elements ofmaximal sterile barrier techniques followed including: cap and mask and sterile gown and sterile gloves and a large sterile sheet and hand hygiene and 2% chlorhexidine for cutaneous antisepsis. The total fluoroscopic time used during the procedure was 0.2 min, a total of 1 fluoroscopic spot and oneultrasound image were obtained and saved in PACS , and the reference air kerma was 1 mGy. PROCEDURE: The procedure, risks, including technical failure, bleeding, infection, vessel injury, arrhythmia,loss of limb, and , and alternatives, were discussed with the patient and all questions were answered. Written informed consent obtained. Accompanying paperwork was verified for accuracy. Directed history and physical exam performed prior to the procedure. Medication reconciliation performed by nursing personnel. Procedure was performed using a cap, sterile gown, sterile gloves, a large sterile sheet, hand hygiene and 2% chlorhexidine for cutaneous antisepsis. The patient was positioned supine on the table and prepped and draped in usual sterile fashion. A critical pause was performed with assisting personnel just prior to the procedure with the patient's identity confirmed using 2 identifiers, confirming site and side. Ultrasound was used to demonstrate a patent RIGHT internal jugula r vein with normal directional flow; a documentation image was saved in the permanent medical record. 7 ml of 1% lidocaine with epinephrine was used for local anesthesia. A small skin incision was made with careful blunt dissection into the subcutaneous tissues. The vein was then punctured under real-time sonographic guidance. A wire was advanced into the IVC. Attention was then turned to the anterior chest wall where the planned port pocket site and subcutaneous tunnel was anesthetized with 15ml 1% lidocaine with epinephrine. An incision was then made at the upper margin of the port pocket and using careful blunt dissection, the incision was opened and the port pocket was made. A tunnelerwas then used to tunnel from the apex of the port pocket to the neck incision site, pulling the catheter back along this path from the venotomy site to the pocket. The catheter was inserted through the peel-away sheath under direct fluoroscopic guidance. The sheath was then removed. The port catheter was then pulled back to the appropriate location, and the external portion was trimmed to the correct length. The catheter was connected to the port, which was then flushed with heparin per protocol. The pocket was then flushed with sterile saline and the port was placed in the pocket, with positioning confirmed by fluoroscopy. The port pocket incision was closed with 3-0 Vicryl sutures and dermal adhesive. The small neck incision was closed with dermal adhesive. The patient tolerated the procedure well with no immediate complication. IMPRESSION: Successful ultrasound and fluoroscopically guided placement of a power injectable chest port via the RIGHT internal jugular vein with the catheter tip terminating at the SVC/RA junction. Port used: Bard clearvue standard, power injectable. The power injectable chest port is available for immediate use. Finalized by Shahbaz Guerrero MD on 08/05/2023 10:51 PM Recent labs: No results found for this or any previous visit (from the past 168 hour(s)). 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 Newly diagnosed classic Hodgkin's lymphoma, at least stage III [left retroperitoneal lymph node biopsy 07/10/2023] Treatment plan: Brentuximab plus AVD [started 07/31/2023 brentuximab only for cycle 1 day 1 and 15 due to diarrhea and poor PS. Due for cycle 2 day 1 today Patient continues to work with physical therapy At the [facility] where he resides and comes in to clinic via wheelchair unable to walk on his own. He was able to stand and weigh self on scale. Continue on single agent brentuximab at this time. #. Status post acute hypoxic respiratory failure secondary to postobstructive pneumonia #. Moderate right-sided pleural effusion #. Heart failure 06/29/2023 echo without contrast: Left ventricle: Systolic function is low normal to moderately decreased with EF of 50-55% #. Cardiomyopathy with ICD in place #. Factor 5 Leiden- on Eliquis #. Paroxysmal atrial fibrillation-on Eliquis Plan: Labs reviewed, ok for treatment, Brentuximab only Please give patient hydration today along with treatment Follow up prior to cycle 3 Thank you for allowing me to participate in this patient's care. - DONNA TRAN 08/27/23 2:57 PM Total time spent was 40 minutes: Preparing to see the patient (e.g., review of tests) Performing a medically appropriate examination and/or evaluation Counseling and educating the patient/family/caregiver Documenting clinical information in the electronic or other health record Independently interpreting results (not separately reported) and communicating results to the patient/family/caregiver PCP: NO PCP, NO PCP Referring MD: Alysa Major APR* Please note that portions of this note were generated using voice recognition [employer] dictation software. Although every effort was made to ensure the accuracy of this automated rn behavioral health, some errors in rn behavioral health may have occurred DONNA Tran 08/27/23 1459 documented in this [facility]05-30-2024 Instructions* Patient Instructions* DONNA Tran - 08/27/2023 11:30 AM EDT Labs reviewed, ok for treatment, Brentuximab only Please give patient hydration today along with treatment Follow up prior to cycle 3 [facility] of Present illness Narrative* DIA Cueto - 08/14/2023 12:02 PM EDT Faxed completed & physician signed [facility] fund application along with copy ofdrivers license to [place]. documented in this [facility]05-16-2024 History of Present illness Narrative* DIA Cueto - 08/13/2023 11:35 AM EDT Met with pt & his sister in law Avni, pt said he is feeling better today. He is unsure how much longer he will be at [facility]. Informed pt & [employer] lead technical writer will fax [employer] [facility] fund application upon physician signature. Opportunity provided to ask questions, pt does notendorse any at this time; lead technical writer available & following. [facility] History of Present illness Narrative* Nahomy Patel RN - 08/13/2023 10:12 AM EDT Patient saw Dr. Prado today for follow up. Orders received to Give IVF, brentuximab only. Check C DIFF and GI panel in hospital. F/u in 2 weeks. Labs two weeks. Patient given calendar, verbalized understanding of future appointments. He will see Alysa PEREZ in two weeks due to Dr. Prado being off on vacation. Will proceed with brentuximab only unless patient can ambulate into facility and diarrhea is under control. [facility] History of Present illness Narrative* Frank Morley RN - 08/13/2023 10:00 AM EDT Pt seen by dr prado today and will proceed with brentuximab and hydration only d/t patient having diarrhea. Labs/ VS ok for treatment. Port accessed on arrival. Blood return noted, flushes with ease. NS bolus started at infused over 2 hours. Premedicated with PO tylenol/benadryl followed by IVPB decadron/aloxi. Brentuximab infused over 30 minutes. Pt tolerated well. Port flushed and de accessed perprotocol. Treatment calendar given to patient. Dc'd in stable condition with sister. [facility] this [facility] History of Present illness Narrative* Wallace Prado MD - 08/13/2023 9:15 AM EDT Images from the original note were not included. [facility] Rajendra Manrique M.D. Aimee Anderson M.D. Fili Bolanos M.D. Briseida Sena M.D. Chantale Melvin, [facility] Orcas [place], [facility] Gala Sergo, [facility] Angelika Jones, [facility] ROSIBEL Javier M.D. Santiago Nicolas M.D. Dale Bro M.D. Brandon Banuelos M.D. Alysa Major, [facility] [place]en [place], [facility] Jennifer Eaton, [facility] Parul Esteves, [facility] PROGRESS NOTE 08/13/23 History of present illness: The patient is a 67 y.o. male Who presented to [facility] due to some new worsening shortness of breath over the last 2 days. He was transferred to [facility] for further workup. Patient had noted [...] show any malignant cells at this time. [facility] had pleural fluid drained, which did not find any malignant cells. Some liver lesions were also noted incidentally on CTA chest. He is currently being treated for postobstructive pneumonia. Cardiology has been consulted due to concern for shunting. Oncology is now asked to evaluate secondary to concern for cancer. Brentuximab single agent started 07/2023 (poor performance status) Interval History: The patient had 1 dose of brentuximab treatment so far and 4 days of high-dose Decadron. His breathing is better. He is able to breathe comfortably at 3 L of oxygen. The patient developed diarrhea about a week after last dose of brentuximab treatment. He denies significant abdominal pain. ER visit yesterday revealed a diverticulitis in CT scan. He is currently taking Cipro and Flagyl. Appetite is poor but he is able to eat. No significant lower extremity swelling. Denies any side effects from brentuximab. Pain scale:0/10, location:NA Recent history: taken from consult on 07/06/23 Objective Physical Examination: Vitals: BP 102/67 Pulse 86 Temp 36.3 C (97.4 F) (Oral) Resp 24 Ht 185.4 cm (6' 0.99 ) Wt 90.1 kg (198 lb 9.6 oz) SpO2 98% BMI 26.21 kg/m Physical Exam Constitutional: General: He is [...] Lines, Drains, Airways: peripheral IV Recent Labs Recent Results (from the past 24 hour(s)) CBC auto differential Collection Time: 08/12/23 6:13 PM Result Value Ref Range White Blood Cells 13.2 (H) 4.0 - 11.0 X10E9/L RBC count 3.83 (L) 4.10 - 5.70 X10E12/L Hemoglobin 11.5 (L) 13.0 - 17.0 g/dL Hematocrit 34.3 (L) 39 - 49 % MCV 89 80 - 100 fL MCH 30.0 27 - 34 pg MCHC 33.5 32 - 36 g/dL RDW 19.9 (H) 11.5 - 15.0 % Platelets 478 (H) 150 - 450 X10E9/L MPV 8.0 7 - 12 fL Band 1.0 % Seg neutrophil 65.0 % Lymphocyte 13.0 % Monocytes 16.0 % Eosinophil 2.0 % Lymphocyte, atypical 3.0 % Nucleated RBC 7.0 (H) 0.0 - 1.0 /100 WBC Neutrophils Absolute (M) 8.7 (H) 1.5 - 6.6 X10E9/L Lymphocytes Absolute 2.1 1.0 - 3.5 X10E9/L Monocytes Absolute 2.1 (H) 0 - 0.9 X10E9/L Eosinophils Absolute 0.3 0.0 - 0.4 X10E9/L [place] Cells 1+ (A) NONE^NONE Fragment 1+ (A) NONE^NONE Stomatocyte 1+ (A) NONE^NONE Comprehensive metabolic panel Collection Time: 08/12/23 6:13 PM Result Value Ref Range Sodium 134 134 - 146 mmol/L Potassium, Bld 3.3 (L) 3.5 - 5.0 mmol/L Chloride 96 (L) 98 - 109 mmol/L CO2 24 22 - 32 mmol/L Anion gap 14 5 - 15 mmol/L BUN 15 5 - 27 mg/dL Creatinine 0.70 0.70 - 1.20 mg/dL Glucose 127 (H) 65 - 99 mg/dL Calcium 7.9 (L) 8.5 - 10.5 mg/dL Total Protein 5.4 (L) 6.0 - 8.0 g/dL Albumin 2.1 (L) 3.2 - 5.3 g/dL Alkaline Phosphatase 172 (H) 39 - 130 U/L AST 19 0 - 41 U/L ALT 18 0 - 40 U/L Total bilirubin 0.7 0.3 - 1.2 mg/dL eGFR (CKD-EPI)non-race dependent >90 >59 ml/min/1.73sq.m Magnesium Collection Time: 08/12/23 6:13 PM Result Value Ref Range Magnesium 1.5 (L) 1.8 - 2.6 mg/dL POCT Nursing Urine Macroscopic UA Collection Time: 08/12/23 10:05 PM Result Value Ref Range Specific gravity BRENTON 1.020 1.003 - 1.035 Leukocyte esterase BRENTON Negative Negative^Negative Nitrite BRENTON Negative Negative^Negative Ph 6.0 5.0 - 8.5 Protein BRENTON 30 (A) Negative^Negative mg/dL Urine glucose BRENTON Negative Negative^Negative mg/dL Ketones BRENTON Trace (A) Negative^Negative mg/dL Urobilinogen BRENTON 0.2 <1.1 eu/dL Bilirubin BRENTON Small (A) Negative^Negative Hemoglobin BR[place]ON MODERATE (A) Negative^Negative Inpatient scheduled medications: Current Outpatient Medications: apixaban (ELIQUIS) 5 mg tablet, Take 1 tablet (5 mg total) by mouth in the morning and 1 tablet (5 mg total) before bedtime., Disp: , Rfl: aspirin 81 mg, Take 1 tablet (81 mg total) by mouth in the morning., Disp: , Rfl: atorvastatin (LIPITOR) 20 mg tablet, Take 1 tablet (20 mg total) by mouth in the morning., Disp: , Rfl: bumetanide (BUMEX) 2 mg tablet, HOLD until outpatient follow-up with Cardiology, Disp: , Rfl: carvediloL (COREG) 3.125 mg tablet, HOLD until outpatient follow-up with Cardiology, Disp: , Rfl: ciprofloxacin HCl (CIPRO) 500 mg tablet, Take 1 tablet (500 mg total) by mouth in the morning and 1tablet (500 mg total) before bedtime., Disp: , Rfl: dexAMETHasone (DECADRON) 4 mg tablet, Take 10 tablets (40 mg total) by mouth daily with breakfast.,Disp: 40 tablet, Rfl: 0 dexAMETHasone (DECADRON) 4 mg tablet, Take 2 tablets (8 mg) by mouth once daily on days 2, 3, and 4., Disp: 60 tablet, Rfl: 2 ipratropium-albuteroL (DUONEB) 0.5 mg-3 mg(2.5 mg base)/3 mL nebulizer, Inhale 3 mL by nebulizationevery 6 (six) hours while awake., Disp: , Rfl: magnesium hydroxide (DULCOLAX, MAGNESIUM HYDROXIDE,) 400 mg/5 mL suspension, Take 15 mL by mouth daily as needed (constipation)., Disp: 15 mL, Rfl: 0 metoprolol succinate XL (TOPROL XL) 25 mg 24 hr tablet, Take 1 tablet (25 mg total) by mouth in themorning., Disp: , Rfl: metroNIDAZOLE (FLAGYL) 500 mg tablet, Take 1 tablet (500 mg total) by mouth in the morning and 1 tablet (500 mg total) before bedtime. Do all this for 7 days., Disp: 14 tablet, Rfl: 0 mirtazapine (REMERON) 15 mg tablet, Take 1 tablet (15 mg total) by mouth nightly., Disp: , Rfl: ondansetron (ZOFRAN) 8 mg tablet, Starting on day 3, take 1 tablet by mouth twice daily as needed for severe nausea or vomiting., Disp: 60 tablet, Rfl: 2 potassium chloride (K-TAB,KLOR-CON) 20 mEq CR tablet, HOLD until outpatient follow-up with Cardiology, Disp: , Rfl: prochlorperazine (COMPAZINE) 10 mg tablet, Take 1 tablet by mouth every 6 hours as needed for mild nausea or vomiting., Disp: 60 tablet, Rfl: 2 sacubitriL-valsartan (ENTRESTO) 24-26 mg tablet, HOLD until outpatient follow-up with Cardiology, Disp: , Rfl: No current facility-administered medications for this visit. Facility-Administered Medications Ordered in Other Visits: acetaminophen (TYLENOL EXTRA STRENGTH) tablet 1,000 mg, 1,000 mg, oral, Once, Wallace Prado MD brentuximab vedotin (ADCETRIS) 120 mg in sodium chloride 0.9 % 100 mL chemo IVPB, 120 mg, intravenous, Once, Wallace Prado MD dexAMETHasone (DECADRON) 12 mg, palonosetron (ALOXI) 0.25 mg in sodium chloride 0.9 % 50 mL IVPB, ,intravenous, Once, Wallace Prado MD diphenhydrAMINE (BENADRYL) capsule 25 mg, 25 mg, oral, Once, Wallace Prado MD diphenhydrAMINE (BENADRYL) injection 25 mg, 25 mg, intravenous, Q15 Min PRN, Wallace Prado MD EPINEPHrine (ADRENALIN) 1 mg/mL injection FOR ANAPHYLAXIS 0.3 mg, 0.3 mg, intramuscular, Q5 Min PRN, Wallace Prado MD methylPREDNISolone sod suc(PF) (Solu-MEDROL) injection 125 mg, 125 mg, intravenous, PRN, Wallace Prado MD sodium chloride 0.9 % bolus, 1,000 mL, intravenous, Once, Wallace Prado MD, Last Rate: 500 mL/hr at 08/13/23 1031, 1,000 mL at 08/13/23 1031 sodium chloride 0.9 % bolus, 500 mL, intravenous, PRN, Wallace Prado MD sodium chloride 0.9 % infusion, 25 mL/hr, intravenous, Continuous PRN, Wallace Prado MD Diagnosis Problem list: Patient Active Problem List Diagnosis Mass of lung Multifocal pneumonia 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 Paroxysmal atrial fibrillation on Eliquis Mr. Haywood is a 67 y.o. male with recent diagnosis of classic Hodgkin's lymphoma. The patient's path was reviewed at [facility], the tumor was deemed to be EBV positive, immunohistochemistry staining is consistent with Hodgkin's lymphoma. The tumors are CD15, CD30 GATA3 and Charlo positive. These tumors are negative for all other markers tested. Patient has a normal CD4: CD8 ratio. I discussed the results with patient's POA, Joana [id number]. Prior to admission the patient was maintaining a good performance status until about 3 months ago. He developed weight loss, fatigue and profuse night sweats. The patient is doing better over the past 2 weeks. He is breathing better, having more energy. Due to new onset diarrhea I do not think the patient is a good candidate for chemotherapy today. His CT scan after 1 dose of brentuximab already show improvement in retroperitoneal and mediastinallymph node. Give IVF, brentuximab only today. Check C DIFF and GI panel in hospital labs. F/u in 2 weeks. Follow-up with MD in 4 weeks. Labs two weeks. Continue brentuximab in 2 weeks, if his performance status improved significantly consider B/ABD. Wallace Prado M.D. [facility] [address] [place] [address] documented in this [facility]05-16-2024 Instructions* Patient Instructions* Wallace Prado MD - 08/13/2023 9:15 AM EDT Give IVF, brentuximab only. Check C DIFF and GI panel in hospital. F/u in 2 weeks. Labs two weeks. documented in this [facility]05-10-2024 History of Present illness Narrative* Frank Morley RN - 08/07/2023 10:15 AM EDT Port accessed and de accessed per protocol. documented in this [facility]05-09-2024 History of Present illness Narrative* Nahomy Patel RN - 08/06/2023 10:18 AM EDT Images from the original note were not included. MD Nahomy Molina, RN Labs from yesterday looks good. Uric acid is within normal range. Kidney function is stable. I do not have any concern at this point. Hopefully his strong enough to start b-AVD in about 2 weeks. Previous Messages ----- Message ----- From: Nahomy Patel RN Sent: 08/06/2023 10:02 AM EDT To: Wallace Prado MD WEEKLY LABS documented in this [facility] History of Present illness Narrative* Nahomy Patel RN - 08/06/2023 9:58 AM EDT WEEKLY LABS SCANNED INTO MEDIA AND ROUTED TO DR. PRADO TO REVIEW. documented in this encounterAden[facility]05-[facility] History of Present illness Narrative* DIA Cueto - 07/31/2023 1:36 PM EDT Introduced self & rolf of SW to pt & his sister in law Avni. Pt has been at [facility] for [place] [facility]. Pt needed to use facilities. Educated Avni on [employer], provided brochure & application & provided [employer] Senior Directory. Pt unsure how much longer he will at [facility]; encouraged sister in law to ask [facility] to arrange for [place] from [facility]. Provided Avni with writers contact information; lead technical writer available & following. documented in this encounterAdena [facility]05-03-2024 History of Present illness Narrative* Nahomy Patel RN - 07/31/2023 10:30 AM EDT Patient is here for C1 Brentuximab. Patient had chemo teaching today with family member Avni his sister. Dr. Prado at bedside. Okay to proceed with treatment. Patient c/o weakness and fatigue, shortnessof breath. On oxygen. Labs reviewed. WBC elevated from high dose steroids. PO benedryl and po tylenol given. IV started per [place] [facility]. NS started at [facility]. IV premeds given. Brentuximab infused over 30miutes. Patient tolerated it well. He felt a little sweaty after infusion. Patient has not had muchto eat yet today. Patient drank some oj and ate granola bar. Feeling better. Discharge instructionsreviewed and treatment calendar. HE will [facility] [place] and follow with Dr. Prado in two weeks prior to next treatment. IV removed. Patient discharged in stable condition. documented in this encounterAdena [facility]05-[facility] History of Present illness Narrative* Deirdre Mcdaniels RN - 07/31/2023 9:30 AM EDT 07/31/23 Patient: Torsten Haywood 1955 Diagnosis: Hodgkins' Lymphoma The patient recently met with their primary oncologist to discuss available anti-cancer treatment options. The patient has elected to proceed with the recommendations. The patient presents today for education related to the recommended anti-cancer therapy. Learning Assessment Readiness to Learn [x] Yes [] No Barriers to Education [x] No [] Yes [] Hearing impaired [] Vision Impaired [] Low literacy level [] Language barrier. Patient speaks: [] [employer] present. [] Anxiety [] Cognitive barriers [] Other: Learning Preference [x] Listening [] Reading [] Repetition [] Other: Present for Education Healthcare POA Diagnosis and Treatment Plan The patient was provided with written and verbal information regarding their diagnosis, treatment plan, diagnostic testing related to treatment, and location of treatment, including the following: Goal of Therapy [x] Curative [] Palliative Treatment Plan Antineoplastic Day of Cycle Route Days Duration of Treatment Adriamycin 1&15 IV 28 days [x] # of cycles: [x] Dependent upon response to treatment and toxicities Vinblastine 1&15 IV 28 days Dacarbazine 1&15 IV 28 days Brentuximab 1&15 IV 28 days [] G-CSF support - Given Day of each cycle, Subcutaneous Labs and Diagnostic Tests: Name and Type of Test When the test should be done [] Bone density testing [] Before first treatment then every 2 years [] ECG [] Before first treatment [] Before first treatment then: [x] ECHO [] Before first treatment [] Before first treatment, every 3 months, at the completion of treatment. [] Other: [] Pulmonary Function Tests []Before first treatment [x] CBC and diff [] Day of treatment [] Day before treatment [] Other: [x] CMP [] Day of treatment [] Day before treatment [] Other: [] Hepatitis B Testing [] Before first treatment [] TSH with reflex T4 [] Before starting treatment then: [] Testing [] Before first treatment then: [] Other: []Before first treatment []Before first treatment then: Location of Treatment: [] Oral, patient's home [] [facility] [] [facility] ([place]) [] [facility] [] [facility] [x] [facility] ([place]) [] [facility] [] [facility] [] [facility] [] [facility] [] [facility] [] [facility] [] [facility] [] [facility] [] [facility] [x] The patient was instructed that it would be necessary to have someone drive them to and from treatment. Side-Effects The major side effects of this treatment, marked below, were explained. We discussed that most risks are temporary but some may be permanent. We also discussed that with any medical treatment there is a possibility of unexpected complications. Written information regarding side effect management was provided to the patient, including signs and symptoms to report and supportive care strategies: or [x] Alopecia [x] Appetite, decreased [x] Arthralgias/ myalgias [x] Bone marrow depression (anemia, leukopenia, thrombocytopenia) [x] Cancer (secondary malignancy), treatment related, increased risk [x] Cardiotoxicity [] Arrhythmias [] CHF [] Other (type in): [x] Cognitive changes (e.g., chemo brain) [x] Constipation [x] Dermatologic reactions (skin, nails) [x] Diarrhea [] Edema, peripheral [x] Electrolyte changes [] Endocrinopathies [thyroid, pancreas, pituitary gland, adrenal glands] [] Extravasation [x] Fatigue [] Fluid retention/peripheral edema [] Hearing changes [] Hemorrhagic cystitis [] Hepatotoxicity [x] Hypertension [] Hypotension [x] Immune check point inhibitor immune mediated toxicities:colitis, skin reactions (rash, itching, mouth sores, blisters), pneumonitis, brain and nerve problems, hormone abnormalities of the pituitary gland, thyroid gland, and adrenal glands, eye problems (change in vision, eye pain, redness), nephritis and failure, carditis (rare) [x] Infection, increased risk [x] Infusion Reaction, allergic reactions [] Menopause Symptoms: hotflashes, vaginal dryness, decreased libido [x] Mucositis [x] Nausea and Vomiting [x] Nephrotoxicity [] Osteopenia, Osteoporosis [x] Peripheral neuropathy [] Pulmonary toxicity [] Reproductive, possible effects on fertility and the fetus [x] Taste changes [x] Urine color change, temporary [] Venous Thromboembolism, increased risk (DVT, PE) [] Vision Changes, Ocular Toxicities [] Wound healing, impaired [] Other (type in): Supportive Care Medications [x] The patient was instructed to picker / packer prescriptions prior to starting treatment. Supportive care medications, including indication, dose, frequency, and side- effects were reviewed and the patient was provided with written materials: [] Acyclovir (Zovirax) [] Allopurinol (Zyloprim) [] Diphenoxlylate/Atropine (Lomotil) [x] Dexamethasone (Decadron). - The patient was instructed to take dexamethasone 1 tablet by mouth once daily on on day 2 and day 3 of each chemotherapy cycle. [] Emla Cr me. [] Loperamide (Immodium) [] Miralax [] Olanzapine (Zyprexa) [x] Ondansetron (Zofran) [x] Prochloperazine (Compazine) [] Sulfamethazole/Trimethoprim (Bactrim) [] Other (type in): Contact and Emergency Information/Appointments [x] The patient was provided with provider contact information and emergency contact information. They were advised to call the phone number provided 20/10, in the event that events occurred outside of normal business hours. They were advised of the process for cancelling and rescheduling appointments. The patient was provided with information regarding the frequency of office visits: [] Before each treatment and more often if indicated. Patient instructed to refer to After Visit Summary for future appointments. [x] Before each cycle and more often if indicated. Patient instructed to refer to After Visit Summary for future appointments. Safehandling Precautions in the Home [x] The patient was provided with written and verbal instructions regarding safehandling precautions in the home. [x] Office and emergency Contact Information [x] [facility]: A Guide to Living with Cancer* [x] OncoLink Antineoplastic Agent drug information [] Lexicomp Antineoplastic drug information [] NCCN Disease Specific Information (type in name): [x] Neutropenia Wallet Card [x] Immunotherapy Wallet Card [] Emla Cream Wallet Card [x] Chemotherapy Calendar [x] In addition to the side effect information included in the [facility] Guidebook, I have provided the patient with handouts on (type in name): [] Other: Patient Understanding Torsten Chepeluz marina Haywood and his POA were provided with an opportunity to ask any remaining questions. The patient was able to teach back the following information: [x] Diagnosis [x] Goals of Therapy [x] Names of antineoplastic medications [x] Supportive care medications, indications, dose, and frequency [x] Short and buttermaker helper side effects, including indications to notify provider and self-care [x] Schedule and duration of treatment [x] Labs and diagnostic tests, including frequency and timing [x] Location of treatment [x] Frequency of office visits and procedure for cancelling and rescheduling appointments [x] Office and emergency contact information and examples of indications to call or go to the Emergency Room. [x] Safehandling precautions in the home [] The patient was able to teach back the following information: possible effects on fertility and the fetus, need for contraception, and for females- testing. Total Time Spent: (type in) [x] 100% of the visit today was spent in counseling the patient and their POA [x] Time spent: 60 *The [facility]: A Guide to Living with Cancer 2021 includes the following information: knowing when to call the doctor, cancer pathology and staging, cancer treatment overview, cancer treatment plan, symptoms (indications to call and management) for loss of appetite, low blood counts, chemo brain, constipation, diarrhea, dry mouth, fatigue, hair loss, hand foot syndrome, infertility, more sores and sore throat, nausea and vomiting, pain, peripheral neuropathy, sexual health andintimacy (including need for contraception), taste changes, and safehandling of hazardous medications. documented in this encounterAdena [facility]05-02-2024 History of Present illness Narrative* Nahomy Patel RN - 07/30/2023 7:41 AM EDT LABS SCANNED INTO MEDIA FOR C1 BRENTUXIMAB documented in this encounterAdena [facility]05-01-2024 History of Present illness Narrative* Nahomy Patel RN - 07/29/2023 11:49 AM EDT Cxr routed to Dr. Prado to review. documented in this [facility]05-01-2024 History of Present illness Narrative* Nahomy Patel RN - 07/29/2023 10:24 AM EDT Images from the original note were not included. MD Nahomy Molina RN C1D15 should be brentuximab/AVD. Previous Messages ----- Message ----- From: Nahomy Patel RN Sent: 07/29/2023 9:27 AM EDT To: Wallace Prado MD Subject: chemo His port insertion has been moved up to 08/04. For C1D15 on August 12, do you still want him to just getBrentuximab or ABVD? documented in this [facility]04-30-2024 History of Present illness Narrative* Nahomy Patel RN - 07/28/2023 5:03 PM EDT Images from the original note were not included. MD Nahomy Molina RN August 12 is ok. [place], whenever the family can arrange. Previous Messages ----- Message ----- From: Nahomy Patel RN Sent: 07/28/2023 2:35 PM EDT To: Wallace Prado MD Subject: update He will get his weekly Labs tomorrow. Chemo teaching and Brentuximab Thursday. July 30. He sees you . Can he get his Day 15 Brentuximab one day early on August 12? His POA has a graduation on August 13 and His port is scheduled August 16. His POA scheduled it that way to see how he does on the brentuximabfirst. Unless you want the port moved up? The ABVD will start after he gets the port on 08/28/23. Thanks. documented in this encounterAdena [facility]04-30-2024 History of Present illness Narrative* Nahomy Patel RN - 07/28/2023 12:55 PM EDT Spoke with POA. [facility] Tomorrow. Chemo teachingand brentuximab scheduled for Thursday. Port placement 08/16. Dr. Prado updated. Message sent to Dr. Fairbanks see if he can get C1D15 Brentuximab one day early due to conflict with POA. documented in this encounterAdena [facility]04-26-2024 History of Present illness Narrative* Nahomy Patel RN - 07/24/2023 2:57 PM EDT Script faxed to [facility] [place] to start high dose dexamethasone and weekly lab orders. Phone number provided for port placement and coordinate with POA documented in this encounterAdena [facility] Center04-24-2024 Miscellaneous Notes* Telephone Encounter - Melinda Camacho RN - 07/22/2023 3:18 PM EDT Patient's sister Joana (POA) called inquiring if his labs have come back from [facility] and the other ones done in house. Joana stated that she spoke with Gala about this while inpatient and it was agreed she could call for the results since his follow up is not until 08/[address] Prado in [place]. Joana is requesting a call back from a provider to discuss results/ next steps. Can be reached at [phone] (primary contact) * Telephone Encounter - DONNA Mercado - 07/22/2023 3:18 PM EDT Inquiring about biopsy results, no final pathology back from [place] yet Avni (sister in law of patient) confirmed PET scan is set up for 08/07/23 Updated on follow up appointment 08/13/23 at 915am in [place] with Dr. Prado She asked if anyone will call results ahead, explained that we would prefer to discuss results and treatment plan at office visit. If there is anything urgent about test results, (requiring return tohospital,etc), she and patient will be notified. She verbalized understanding. - DONNA Mercado 07/22/23 3:57 PM documented in this encounterAdena [facility] Center04-24-2024 Telephone encounter Note* Telephone Encounter - Melinda Camacho RN - 07/22/2023 3:18 PM EDT Patient's sister Joana (POA) called inquiring if his labs have come back from [facility] and the other ones done in house. Joana stated that she spoke with Gala about this while inpatient and it was agreed she could call for the results since his follow up is not until 08/[address] Prado in [place]. Joana is requesting a call back from a provider to discuss results/ next steps. Can be reached at [phone] (primary contact) [facility] Telephone encounter Note* Telephone Encounter - DONNA Mercado - 07/22/2023 3:18 PM EDT Inquiring about biopsy results, no final pathology back from [place] yet Avni (sister in law of patient) confirmed PET scan is set up for 08/07/23 Updated on follow up appointment 08/13/23 at 915am in [place] with Dr. Prado She asked if anyone will call results ahead, explained that we would prefer to discuss results and treatment plan at office visit. If there is anything urgent about test results, (requiring return tohospital,etc), she and patient will be notified. She verbalized understanding. - DONNA Mercado 07/22/23 3:57 PM [employer] Work Phone: [phone]) 733-637404-23-2024 History of Present illness Narrative* Nahomy Patel RN - 07/21/2023 4:42 PM EDT Images from the original note were not included. MD Nahomy Molina RN We can order a port. Path showed possible Hodgkin's lymphoma but path was reviewed at [facility] or [facility]. Previous Messages ----- Message ----- From: Nahomy Patel RN Sent: 07/21/2023 12:54 PM EDT To: Wallace Prado MD Subject: FW: follow up His pet ct is 08/07/23, Follow up will be 08/13/23. Let me know if you want the port ordered now or wait until you see him first? ----- Message ----- From: DONNA Mercado Sent: 07/16/2023 4:12 PM EDT To: Wallace Prado MD; [facility] On[facility] Scheduling; * Subject: follow up Patient was seen at: [facility] Dx: Lymphoma - Hodgkin's versus T-cell - biopsy prelim was called to us 07/15, they are sending to [facility] Plan: PET scan, HIV/ hepatitis results (added on at [facility]), port placement will be needed outpatient Needs: I ordered PET scan, I gave [id number] Avni instructions to call and schedule it. Patient will need a follow-up with Dr. Prado after PET scan and biopsy results, timing at her discretion. He has been discharged to [facility] [place]. Please call [id number] Avni for appointments so she can help coordinate. [phone] Gala Bhat documented in this encounterAdena [facility]04-23-2024 History of Present illness Narrative* Nahomy Patel RN - 07/21/2023 12:55 PM EDT His pet ct is 08/07/23, Follow up will be 08/13/23. Let me know if you want the port ordered now or wait until you see him first? ===View-only below this line=== ----- Message ----- From: Gala Trotter APRN-ANA Sent: 07/16/2023 4:12 PM EDT To: Wallace Prado MD; [facility] Scheduling; * Subject: follow up Patient was seen at: [facility] Dx: Lymphoma - Hodgkin's versus T-cell - biopsy prelim was called to us 07/15, they are sending to [facility] Plan: PET scan, HIV/ hepatitis results (added on at [facility]), port placement will be needed outpatient Needs: I ordered PET scan, I gave [id number] Avni instructions to call and schedule it. Patient will need a follow-up with Dr. Prado after PET scan and biopsy results, timing at her discretion. He has been discharged to [facility] [place]. Please call [id number] Avni for appointments so she can help coordinate. [phone] Gala Bhat documented in this encounterAdena [facility] Center04-19-2024 Miscellaneous Notes* Telephone Encounter - Shahida Giacomo - 07/17/2023 9:37 AM EDT SCHEDULED AT [facility] 08/07/23 10:45 AM ARRIVAL FAXED ORDER AND CLINICALS TO [facility] ON 07/17/23 documented in this encounterAdena [facility]ike [facility] Center04-19-2024 Telephone encounter Note* Telephone Encounter - Shahida Gooden - 07/17/2023 9:37 AM EDT SCHEDULED AT [facility] 08/07/23 10:45 AM ARRIVAL FAXED ORDER AND CLINICALS TO [facility] ON 07/17/23 [facility] [facility]04-15-2024 Miscellaneous Notes* Telephone Encounter - Malinda Moreira - 07/13/2023 10:57 AM EDT ----- Message from Rey Yee MD sent at 07/13/2023 10:28 AM EDT ----- This patient was seen in consultation at [facility]. Following hospital discharge she does not require a follow-up visit in our office as he follows with the [facility] Thank [facility]* Telephone Encounter - Malinda Moreira - 07/13/2023 10:57 AM EDT ----- Message from Rey Yee MD sent at 07/13/2023 10:28 AM EDT ----- This patient was seen in consultation at [facility]. Following hospital discharge she does not require a follow-up visit in our office as he follows with the [facility] Thank you [facility] Future Appointments Appointment Date:06/25/2023 07:00:00 AM Scheduled Provider:Antoine Hobbs MD Location:[facility] Appointment Type:FM Open Appointment Date:08/04/2023 08:00:00 AM Scheduled [facility]: [facility] Medicare Wellness Subsequent [facility] assessment information available [facility] Diagnosis Internal nasal lesion- Primary Anticoagulated Encounter for long-term (current) use of anticoagulants Recurrent epistaxis [facility] Diagnosis Hodgkin lymphoma of intrapelvic lymph nodes, unspecified Hodgkin lymphoma type (CMS-HCC)- Primary Bone lesion Disorder of bone and cartilage, unspecified Hodgkin lymphoma, unspecified Hodgkin lymphoma type, unspecified body region (CMS-HCC) 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) [facility] Diagnosis Hodgkin lymphoma, unspecified Hodgkin lymphoma type, unspecified body region (CMS-HCC)- 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) [facility] Diagnosis Recurrent epistaxis- Primary Anticoagulated Encounter for long-term (current) use of anticoagulants Chronic rhinitis [facility]* Diagnosis Frequent nosebleeds- Primary [facility] Diagnosis Lymphoma, unspecified body region, unspecified lymphoma type (CMS-HCC)- Primary [facility] Diagnosis Lymphoma, unspecified body region, unspecified lymphoma type (CMS-HCC)- Primary [facility] Diagnosis Lymphoma, unspecified body region, unspecified lymphoma type (CMS-HCC)- Primary Nodular sclerosis Hodgkin lymphoma of [...] [facility] Diagnosis Hodgkin lymphoma of intrapelvic lymph nodes, unspecified Hodgkin lymphoma type (CMS-HCC)- Primary [facility] 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 [facility] Diagnosis Hodgkin lymphoma of intrapelvic lymph nodes, unspecified Hodgkin lymphoma type (CMS-HCC)- 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) documented [facility] this encounter [facility]* Diagnosis Hodgkin lymphoma of intrapelvic lymph nodes, unspecified Hodgkin lymphoma type (CMS-HCC)- Primary Diarrhea of presumed infectious origin documented in this encounter [facility]* 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 documented in this encounter [facility]* 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 documented in this encounter [facility]* 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 Hodgkin lymphoma of intrapelvic lymph nodes, unspecified Hodgkin lymphoma type (CMS-HCC) documented in this encounter [facility]* Diagnosis 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 documented in this encounter [facility]* 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 documented in this encounter [facility]* Diagnosis Hodgkin lymphoma, unspecified Hodgkin lymphoma type, unspecified body region (CMS-HCC)- 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 Intestinal infection, enteritis due to [place] virus documented in this encounter [facility]* 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 documented in this encounter [facility]* 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 documented in this encounter [facility]* 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 documented in this encounter [facility]* Diagnosis Hodgkin lymphoma, unspecified Hodgkin lymphoma type, unspecified body region (CMS-HCC)- Primary documented in this encounter [facility]* Diagnosis Hodgkin lymphoma, unspecified Hodgkin lymphoma type, unspecified body region (CMS-HCC)- Primary [facility] Diagnosis Hodgkin lymphoma, unspecified Hodgkin lymphoma type, unspecified body region (CMS-HCC)- 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) documented [facility] this encounter [facility]* Diagnosis Hodgkin lymphoma, unspecified Hodgkin lymphoma type, unspecified body region (CMS-HCC)- 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 Intestinal infection, enteritis due to [place] virus Hodgkin lymphoma of intrapelvic lymph nodes, unspecified Hodgkin lymphoma type (CMS-HCC) [facility] 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 documented in this encounter [facility]* 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 documented in this encounter [facility]* Diagnosis Hodgkin lymphoma of intrapelvic lymph nodes, unspecified Hodgkin lymphoma type (CMS-HCC)- Primary Bone lesion Disorder of bone and cartilage, unspecified [facility]* Diagnosis Hodgkin lymphoma, unspecified Hodgkin lymphoma type, unspecified body region (CMS-HCC)- Primary documented in this encounter [facility]* Diagnosis Recurrent epistaxis- Primary [facility] Diagnosis Screening for prostate cancer- Primary Special screening for malignant neoplasm of prostate 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) documented in this encounter [facility]* 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 [facility]* Diagnosis Hodgkin lymphoma, unspecified Hodgkin lymphoma type, unspecified body region (CMS-HCC)- Primary Bone lesion Disorder of bone and cartilage, unspecified documented in this encounter [facility]* 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 documented in this encounter [facility]* Diagnosis Hodgkin lymphoma, unspecified Hodgkin lymphoma type, unspecified body region (CMS-HCC) documented in this encounter [facility]* Diagnosis Hodgkin lymphoma, unspecified Hodgkin lymphoma type, unspecified body region (CMS-HCC) documented in this encounter [facility]* Diagnosis Hodgkin lymphoma, unspecified Hodgkin lymphoma type, unspecified body region (CMS-HCC)- 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) Essential (primary) hypertension Unspecified essential hypertension Fatigue, unspecified type Malaise Other malaise and fatigue documented in this encounter [facility]* 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 Hodgkin lymphoma, unspecified Hodgkin lymphoma type, unspecified body region (CMS-HCC) Essential (primary) hypertension Unspecified essential hypertension Fatigue, unspecified type Malaise Other malaise and fatigue documented in this encounter [facility]* Diagnosis Hodgkin lymphoma, unspecified Hodgkin lymphoma type, unspecified body region (CMS-HCC)- Primary Hodgkin lymphoma of intrapelvic lymph nodes, unspecified Hodgkin lymphoma type (CMS-HCC) Encounter for monitoring cardiotoxic drug therapy documented [facility]* 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 Hodgkin lymphoma, unspecified Hodgkin lymphoma type, unspecified body region (CMS-HCC) Paroxysmal atrial fibrillation (CMS-HCC) Atrial fibrillation Factor V Leiden mutation Primary hypercoagulable state History of splenectomy Other acquired absence of organ documented in this encounter [facility]* 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 documented in this encounter [facility]* 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 Hodgkin lymphoma, unspecified Hodgkin lymphoma type, unspecified body region (CMS-HCC) Essential (primary) hypertension Unspecified essential hypertension Fatigue, unspecified type Malaise Other malaise and fatigue documented in this encounter [facility]* 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 Hodgkin lymphoma, unspecified Hodgkin lymphoma type, unspecified body region (CMS-HCC) documented in this encounter [facility]* 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 [facility] 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 [facility]* 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 Hodgkin lymphoma, unspecified Hodgkin lymphoma type, unspecified body region (CMS-HCC) Essential (primary) hypertension Unspecified essential hypertension Fatigue, unspecified type Malaise Other malaise and fatigue [facility] 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 [facility]* 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 [facility]* 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 Hodgkin lymphoma, unspecified Hodgkin lymphoma type, unspecified body region (CMS-HCC) Essential (primary) hypertension Unspecified essential hypertension Fatigue, unspecified type Malaise Other malaise and fatigue [facility]* 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 [facility]* 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 Hodgkin lymphoma, unspecified Hodgkin lymphoma type, unspecified body region (CMS-HCC) Essential (primary) hypertension Unspecified essential hypertension Fatigue, unspecified type Malaise Other malaise and fatigue [facility]* Diagnosis Hodgkin lymphoma, unspecified Hodgkin lymphoma type, unspecified body region (CMS-HCC) [facility] 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 Hodgkin lymphoma, unspecified Hodgkin lymphoma type, unspecified body region (CMS-HCC) [facility]* 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 Hodgkin lymphoma, unspecified Hodgkin lymphoma type, unspecified body region (CMS-HCC) Essential (primary) hypertension Unspecified essential hypertension Fatigue, unspecified type Malaise Other malaise and fatigue documented [facility]* 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 [facility]* 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 [facility] in [facility]* 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 Hodgkin lymphoma, unspecified Hodgkin lymphoma type, unspecified body region (CMS-HCC) Essential (primary) hypertension Unspecified essential hypertension Fatigue, unspecified type Malaise Other malaise and fatigue [facility]* 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 Hodgkin lymphoma, unspecified Hodgkin lymphoma type, unspecified body region (CMS-HCC) Essential (primary) hypertension Unspecified essential hypertension Fatigue, unspecified type Malaise Other malaise and fatigue documented [facility] 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 Hodgkin lymphoma, unspecified Hodgkin lymphoma type, unspecified body region (CMS-HCC) documented [facility]* 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 Hodgkin lymphoma, unspecified Hodgkin lymphoma type, unspecified body region (CMS-HCC) Essential (primary) hypertension Unspecified essential hypertension Fatigue, unspecified type Malaise Other malaise and fatigue documented [facility]* 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 [facility] in [facility]* 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 Medication administered in left upper arm subcutaneous tissue. Tolerated well. Site covered with band aid. Discharged in stable condition to private vehicle. 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) Procedures WI INJECTION, NIVOLUMAB WI DOXORUBIC HCL 10 MG VL CHEMO WI VINBLASTINE SULFATE INJ WI DACARBAZINE 100 MG INJ WI DEXAMETHASONE SODIUM PHOS [place] [address] [place] [address] [address] [place] [id number] Phone: tel: fax: [facility] [address] [place] [id number] Phone: tel: fax: Referral IDStatusReasonStart DateExpiration DateVisits RequestedVisits [id number] [facility] Summary Purpose Family History No Family History [...] Advance Directives No January 12, 2017 8:21am TypeDate RecordedPatient RepresentativeExplanationLiving Will07/27/2023 12:01 PM Date ActivatedDate InactivatedComments10/02/2023 10:10 PM10/12/2023 6:12 PMDate ActivatedDate InactivatedComments06/25/2023 2:35 AM07/17/2023 11:36 AMTypeDate RecordedPatient RepresentativeExplanationLiving Will07/27/2023 12:01 PMDate ActivatedDate InactivatedComments10/02/2023 10:10 PM10/12/2023 6:12 PMDate ActivatedDate InactivatedComments06/25/2023 2:35 AM4 11:36 AMDate ActivatedDate InactivatedComments06/25/2023 2:35 AMDate ActivatedDate Inactivated Comments06/25/2023 2:35 AM4 11:36 AMDate ActivatedDate Inactivated Comments06/25/2023 2:35 AM07/17/2023 11:36 AMDate ActivatedDate Inactivated Comments10/02/2023 10:10 PM Chief Complaint and Reason for Visit Chief Complaint z95.0 i25.10 Reason for Referral SpecialtyDiagnoses / ProceduresReferred By ContactReferred To ContactRadiology Diagnoses Hodgkin lymphoma, unspecified Hodgkin lymphoma type, unspecified body region ([facility]) Procedures CT abdomen and pelvis with contrast Wallace Prado MD [address] [place] [address] Referral IDStatusReasonStart DateExpiration DateVisits RequestedVisits [id number] /[id number] / ProceduresReferred By ContactReferred To ContactRadiology Diagnoses Hodgkin lymphoma, unspecified Hodgkin lymphoma type, unspecified body region ([facility]) Procedures CT chest with contrast Wallace Prado MD [address] [place] [address] Referral IDStatusReasonStart DateExpiration DateVisits RequestedVisits [id number] Review/[id number] / ProceduresReferred By ContactReferred To Contact Diagnoses 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 ([facility]) Wallace Prado MD [address] [place] [address] Referral IDStatusReasonStart DateExpiration DateVisits RequestedVisits [id number] / ProceduresReferred By Contact Referred To ContactRadiology Diagnoses Lymphoma, unspecified body region, unspecified lymphoma type ([facility]) Procedures [place] [address] [place] [address] [address] [place] [address] Referral IDStatusReasonStart DateExpiration DateVisits RequestedVisits [id number] Review/ Additional Source Comments (unrecognized sect ion and content) No Status Records FoundNo Status Records FoundNo Status Records FoundNo Status Records FoundNo Status Records FoundNo Status Records FoundNo Status Records FoundNo Status Records FoundNo Status Records FoundNo Status Records Found INFORMATION SOURCE (unrecogn ized section and content) DATE CREATED AUTHOR 09/18/2017 [facility] DATE CREATED AUTHOR AUTHOR'S ORGANIZ ATION 04/21/2021 [facility] DATE CREATED AUTHOR AUTHOR'S ORGANIZ ATION 02/10/2022 [facility] DATE CREATED AUTHOR AUTHOR'S ORGANIZ ATION 08/07/2023 [facility] DATE CREATED AUTHOR AUTHOR'S ORGANIZ ATION 02/05/2024 [facility] DATE CREATED AUTHOR AUTHOR'S ORGANIZ ATION 05/07/2024 [facility] DATE CREATED AUTHOR AUTHOR'S ORGANIZ ATION 06/01/2024 [facility] DATE CREATED AUTHOR AUTHOR'S ORGANIZ ATION 06/18/2024 [facility] DATE CREATED AUTHOR AUTHOR'S ORGANIZ ATION 01/12/2025 [facility] DATE CREATED AUTHOR AUTHOR'S ORGANIZ ATION 01/18/2025 [facility] Goals (unrecognized section and content) Goals may be documented in a n alternate section No data available for this section Patient Care team informatio n (unrecognized section and content) Team MemberRelationshipSpecialtyStart DateEnd Date Antoine Hobbs MD [address] [place] [address] PCP - GeneralFamily Cophfncf91/25/24Team MemberRelationshipSpecialtyStart Date End Date Antoine Hobbs MD [address] [place] [address] PCP - GeneralFamily Mpyvcpyo80/25/24Team MemberRelationshipSpecialtyStart Date End Date Antoine Hobbs MD [address] [place] [address] PCP - GeneralFamily Gawxbjvv41/17/24Team MemberRelationshipSpecialtyStart Date End Date Antoine Hobbs MD [address] [place] [address] PCP - GeneralFamily Farjbyym46/17/24Team MemberRelationshipSpecialtyStart Date End Date Antoine Hobbs MD [address] [place] [address] PCP - GeneralFamily Wseiocqq93/25/24Team MemberRelationshipSpecialtyStart Date End Date Antoine Hobbs MD [address] [place] [address] PCP - Generalmily Jiaddwap54/25/24Team MemberRelationshipSpecialtyStart Date End Date Antoine Hobbs MD [address] [place] [address] PCP - Generalmily Nousviqh32/25/24Team MemberRelationshipSpecialtyStart Date End Date Antoine Hobbs MD [address] [place] [address] PCP - Generalmily Kilwmykm89/25/24Team MemberRelationshipSpecialtyStart Date End Date Antoine Hobbs MD [address] [place] [address] PCP - Generalmily Wmsvdaad00/17/24Team MemberRelationshipSpecialtyStart Date End Date Antoine Hobbs MD [address] [place] [address] PCP - Generalmily Wqxfcstr34/17/24Team MemberRelationshipSpecialtyStart Date End Date Antoine Hobbs MD [address] [place] [address] PCP - Generalmily Zkjecosi48/13/20Team MemberRelationshipSpecialtyStart Date End Date Antoine Hobbs MD [address] [place] [address] PCP - GeneralFamily Ldgstnib97/13/20Team MemberRelationshipSpecialtyStart Date End Date Antoine Hobbs MD [address] [place] [address] PCP - GeneralFamily Ytpvqtkq10/13/20Team MemberRelationshipSpecialtyStart Date End Date Antoine Hobbs MD [address] [place] [address] PCP - GeneralFamily Dpwvswwl78/13/20Team MemberRelationshipSpecialtyStart Date End Date Antoine Hobbs MD [address] [facility] [place] [address] PCP - GeneralFamily Zrutjewp44/13/20Team MemberRelationshipSpecialtyStart Date End Date Antoine Hobbs MD [address] [facility] [place] [address] PCP - GeneralFamily Bkdmojpp20/13/20Team MemberRelationshipSpecialtyStart Date End Date Wallace Prado MD [address] [place] [address] PCP - GeneralHematology07/28/23Team MemberRelationshipSpecialtyStart DateEnd Date Wallace Prado MD [facility] [place] [address] PCP - GeneralHematology07/28/23Team MemberRelationshipSpecialtyStart DateEnd Date Wallace Prado MD [facility] [place] [address] PCP - GeneralHematology07/28/23Team MemberRelationshipSpecialtyStart DateEnd Date Wallace Prado MD [facility] [place] [address] PCP - GeneralHematology07/28/23Team MemberRelationshipSpecialtyStart DateEnd Date Wallace Prado MD [address] [place] [address] PCP - GeneralHematology07/28/23Team MemberRelationshipSpecialtyStart DateEnd Date Wallace Prado MD [facility] [place] [address] PCP - GeneralHematology07/28/23Team MemberRelationshipSpecialtyStart DateEnd Date No Pcp, [place] [address] PCP - GeneralFamily Medicine08/12/23Team MemberRelationshipSpecialtyStart DateEnd Date Wallace Prado MD [facility] [place] [address] PCP - GeneralHematology07/28/23Team MemberRelationshipSpecialtyStart DateEnd Date No Pcp, [place] [address] PCP - GeneralFamily Medicine08/12/23Team MemberRelationshipSpecialtyStart DateEnd Date No Pcp, [place] [address] PCP - GeneralFamily Medicine08/12/23Team MemberRelationshipSpecialtyStart DateEnd Date No Pcp, [place] [address] PCP - GeneralFamily Medicine08/12/23Team MemberRelationshipSpecialtyStart DateEnd Date No Pcp, [place] [address] PCP - GeneralFamily Medicine08/12/23Team MemberRelationshipSpecialtyStart DateEnd Date No Pcp, [place] [address] PCP - GeneralFamily Medicine08/12/23Team MemberRelationshipSpecialtyStart DateEnd Date No Pcp, [place] [address] PCP - GeneralFamily Medicine08/12/23Team MemberRelationshipSpecialtyStart DateEnd Date No Pcp, [place] [address] PCP - GeneralFamily Medicine08/12/23Team MemberRelationshipSpecialtyStart DateEnd Date No Pcp, [place] [address] PCP - GeneralFamily Medicine08/12/23Team MemberRelationshipSpecialtyStart DateEnd Date No Pcp, [place] [address] PCP - GeneralFamily Medicine08/12/23Team MemberRelationshipSpecialtyStart DateEnd Date No Pcp, [place] [address] PCP - GeneralFamily Medicine08/12/23Team MemberRelationshipSpecialtyStart DateEnd Date No Pcp, [place] [address] PCP - GeneralFamily Medicine08/12/23Team MemberRelationshipSpecialtyStart DateEnd Date No Pcp, [place] [address] PCP - GeneralFamily Medicine08/12/23Team MemberRelationshipSpecialtyStart DateEnd Date No Pcp, [place] [address] PCP - GeneralFamily Medicine08/12/23Team MemberRelationshipSpecialtyStart DateEnd Date No Pcp, [place] [address] PCP - GeneralFamily Medicine08/12/23Team MemberRelationshipSpecialtyStart DateEnd Date Wallace Prado MD [address] [place] [address] PCP - GeneralHematology10/02/23Team MemberRelationshipSpecialtyStart DateEnd Date Wallace Prado MD [address] [place] [address] PCP - GeneralHematology10/02/23Team MemberRelationshipSpecialtyStart DateEnd Date Wallace Prado MD [address] [facility] [address] [place] [address] PCP - GeneralHematology10/02/23Team MemberRelationshipSpecialtyStart DateEnd Date Wallace Prado MD [address] [facility] [facility] [address] [place] [address] PCP - GeneralHematology/08/20Team MemberRelationshipSpecialtyStart DateEnd Date Wallace Prado MD [address] [facility] [place] [address] PCP - GeneralHematology10/02/23Team MemberRelationshipSpecialtyStart DateEnd Date Wallace Prado MD [address] [address] [place] [address] PCP - GeneralHematology10/02/23Team MemberRelationshipSpecialtyStart DateEnd Date Wallace Prado MD [address] [facility] [facility] [address] [place] [address] PCP - GeneralHematology10/02/23Team MemberRelationshipSpecialtyStart DateEnd Date Wallace Prado MD [address] [facility] [address] [place] [address] PCP - GeneralHematology/08/20Team MemberRelationshipSpecialtyStart DateEnd Date Wallace Prado MD [address] [facility] [address] [place] [address] PCP - GeneralHematology7/24Team MemberRelationshipSpecialtyStart DateEnd Date Wallace Prado MD [address] [facility] [facility] [address] [place] [address] PCP - GeneralHematology7/24Team MemberRelationshipSpecialtyStart DateEnd Date Wallace Prado MD [address] [facility] [facility] [address] [place] [address] PCP - GeneralHematology7/24Team MemberRelationshipSpecialtyStart DateEnd Date Wallace Prado MD [address] [facility] [facility] [address] [place] [address] PCP - GeneralHematology/24Team MemberRelationshipSpecialtyStart DateEnd Date Wallace Prado MD [address] [facility] [facility] [address] [place] [address] PCP - GeneralHematology/08/20Team MemberRelationshipSpecialtyStart DateEnd Date Wallace Prado MD [address] [facility] [facility] [facility] [address] [place] [address] PCP - GeneralHematology7/24Team MemberRelationshipSpecialtyStart DateEnd Date Wallace Prado MD [address] [facility] [facility] [facility] [address] [place] [address] PCP - GeneralHematology7/24Team MemberRelationshipSpecialtyStart DateEnd Date Wallace Prado MD [address] [facility] [facility] [facility] [address] [place] [address] PCP - GeneralHematology7/5/24Team MemberRelationshipSpecialtyStart DateEnd Date Wallace Prado MD [address] [facility] [address] [place] [address] PCP - GeneralHematology10/02/23Team MemberRelationshipSpecialtyStart DateEnd Date Wallace Prado MD [address] [facility] [address] [place] [address] PCP - GeneralHematology10/02/23Team MemberRelationshipSpecialtyStart DateEnd Date Wallace Prado MD [address] [facility] [address] [place] [address] PCP - GeneralHematology10/02/23Team MemberRelationshipSpecialtyStart DateEnd Date Wallace Prado MD [address] [facility] [address] [place] [address] PCP - GeneralHematology10/02/23Team MemberRelationshipSpecialtyStart DateEnd Date Antoine Hobbs MD [address] [place] [address] PCP - GeneralFamily Hvngycck62/17/24Team MemberRelationshipSpecialtyStart Date End Date Antoine Hobbs MD [address] [place] [address] PCP - GeneralFamily Gonsuhfm39/25/24Team MemberRelationshipSpecialtyStart Date End Date Antoine Hobbs MD [address] [place] [address] PCP - GeneralFamily Nwhmdrok44/25/24Team MemberRelationshipSpecialtyStart Date End Date Antoine Hobbs MD [address] [place] [address] PCP - GeneralFamily Qnodjmav39/17/24Team MemberRelationshipSpecialtyStart Date End Date Antoine Hobbs MD [address] [place] [address] PCP - GeneralFamily Rhrwdvzh18/17/24Team MemberRelationshipSpecialtyStart Date End Date Antoine Hobbs MD [address] [place] [address] PCP - Generalmily Ujorgpmi35/17/24Team MemberRelationshipSpecialtyStart Date End Date Antoine Hobbs MD [address] [place] [address] PCP - GeneralFamily Xorqcxqm83/17/24Team MemberRelationshipSpecialtyStart Date End Date Antoine Hobbs MD [address] [place] [address] PCP - GeneralFamily Uschgquw05/17/24Team MemberRelationshipSpecialtyStart Date End Date Antoine Hobbs MD [address] [place] [address] PCP - GeneralFamily Esowlbdn47/17/24Team MemberRelationshipSpecialtyStart Date End Date Antoine Hobbs MD [address] [place] [address] PCP - GeneralFamily Ptupnchb95/17/24Team MemberRelationshipSpecialtyStart Date End Date Antoine Hobbs MD [address] [place] [address] PCP - GeneralFamily Igngukvo89/17/24Team MemberRelationshipSpecialtyStart Date End Date Antoine Hobbs MD [address] [place] [address] PCP - GeneralFamily Vtbgaewb02/17/24Team MemberRelationshipSpecialtyStart Date End Date Antoine Hobbs MD [address] [place] [address] PCP - GeneralFamily Bbpyferf70/17/24Team MemberRelationshipSpecialtyStart Date End Date Antoine Hobbs MD [address] [place] [address] PCP - GeneralFamily Roafjtpv50/17/24Team MemberRelationshipSpecialtyStart Date End Date Antoine Hobbs MD [address] [place] [address] PCP - GeneralFamily Brqmokty34/17/24Team MemberRelationshipSpecialtyStart Date End Date Antoine Hobbs MD [address] [place] [address] PCP - GeneralFamily Nneeawcj56/17/24Team MemberRelationshipSpecialtyStart Date End Date Antoine Hobbs MD [address] [place] [address] PCP - GeneralFamily Lfldlhoy42/17/24Team MemberRelationshipSpecialtyStart Date End Date Antoine Hobbs MD [address] [place] [address] PCP - Generalmily Ddwweber48/17/24Team MemberRelationshipSpecialtyStart Date End Date Antoine Hobbs MD [address] [place] [address] PCP - Generalmily Efqtcevb29/17/24Team MemberRelationshipSpecialtyStart Date End Date Antoine Hobbs MD [address] [place] [address] PCP - Generalmily Uaegpxjn19/17/24Team MemberRelationshipSpecialtyStart Date End Date Antoine Hobbs MD [address] [place] [address] PCP - GeneralFamily Vtjpdklb27/17/24Team MemberRelationshipSpecialtyStart Date End Date Antoine Hobbs MD [address] [place] [address] PCP - GeneralFamily Xccaceep55/17/24Team MemberRelationshipSpecialtyStart Date End Date Antoine Hobbs MD [address] [place] [address] PCP - GeneralFamily Xpedxlmy09/17/24Team MemberRelationshipSpecialtyStart Date End Date Antoine Hobbs MD [address] [place] [address] PCP - GeneralFamily Amjswrfr07/17/24Team MemberRelationshipSpecialtyStart Date End Date Antoine Hobbs MD [address] [place] [address] PCP - Generalmily Llyamikk36/17/24Team MemberRelationshipSpecialtyStart Date End Date Antoine Hobbs MD [address] [place] [address] PCP - Generalmily Cjfifomr26/17/24Team MemberRelationshipSpecialtyStart Date End Date Antoine Hobbs MD [address] [place] [address] PCP - Generalmily Wnpgiqnn95/17/24Team MemberRelationshipSpecialtyStart Date End Date Antoine Hobbs MD [address] [place] [address] PCP - GeneralFamily Vfurruug29/17/24Team MemberRelationshipSpecialtyStart Date End Date Antoine Hobbs MD [address] [place] [address] PCP - GeneralFamily Ssehzbub15/17/24Team MemberRelationshipSpecialtyStart Date End Date Antoine Hobbs MD [address] [place] [address] PCP - [facility] Jlllnbhd25/17/24Team MemberRelationshipSpecialtyStart Date End Date Antoine Hobbs MD [address] [facility] [address] PCP - [facility]02/14/24Team MemberRelationshipSpecialtyStart Date End Date Antoine Hobbs MD [address] [place] [id number] PCP - [facility]02/14/24 Reason for Visit (unrecogniz ed section and content) ReasonCommentsInjectionfulphilaSpecialtyDiagnoses / ProceduresReferred By ContactReferred To Contact 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) Procedures WI INJECTION, NIVOLUMAB WI DOXORUBIC HCL 10 MG VL CHEMO WI VINBLASTINE SULFATE INJ WI DACARBAZINE 100 MG INJ WI DEXAMETHASONE SODIUM PHOS WI PALONOSETRON HCL Wallace Prado MD [address] [place] [address] [address] [place] [address] Phone: tel: fax: [facility] - Medical Oncology [address] [place] [phone] Phone: tel: fax: Referral IDStatusReasonStart DateExpiration DateVisits RequestedVisits [id number]/6/20253/[id number]kqDipqdi AVDReasonCommentsInjectionFulphilaReasonCommentsChemotherapyOpdivo, AVDReason CommentsChemotherapyOpdivo AVDReasonCommentsInjectionFulphilaReasonComments ChemotherapyOpdivo and AVDReasonCommentsChemotherapyOpdivo/AVDReasonComments Outpatient InfusionbrentuximabSpecialtyDiagnoses / ProceduresReferred By Contact Referred To Contact 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) Procedures WI DOXORUBIC HCL 10 MG VL CHEMO WI VINBLASTINE SULFATE INJ WI DACARBAZINE 100 MG INJ WI BRENTUXIMAB VEDOTIN INJ WI PALONOSETRON HCL WI DEXAMETHASONE SODIUM PHOWallace Ramirez MD [address] [place] [address] Phone: tel: fax: [facility] - Medical Oncology [address] [place] [phone] Phone: tel: fax: Referral IDStatusReasonStart DateExpiration DateVisits RequestedVisits [id number]/25/20244/25/[id number]tf BrentuximabSpecialtyDiagnoses / ProceduresReferred By ContactReferred To Contact 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) Procedures WI DOXORUBIC HCL 10 MG VL CHEMO WI VINBLASTINE SULFATE INJ WI DACARBAZINE 100 MG INJ WI BRENTUXIMAB VEDOTIN INJ WI PALONOSETRON HCL WI DEXAMETHASONE SODIUM PHOS Wallace Prado MD [address] [place] [address] Pfo Med Onc [address] [place] [phone] ReasonCommentsChemotherapybrentuximabReasonCommentsOutpatient InfusionAVD + brentuximabReasonCommentsChemotherapyBrentuximabOutpatient Infusionhydration Referral IDStatusReasonStart DateExpiration DateVisits RequestedVisits [id number] Review/[id number] InfusionBrentuximabReasonCommentsOutpatient InfusionHydration/ brentuximabReason CommentsEpistaxis (Nose Bleed)Left side packed in [facility] ER 02/17ReasonComments Follow-upReasonOnset DateCommentsEpistaxis (Nose Bleed)04/22/2024ReasonComments Epistaxis (Nose Bleed)ReasonOnset PqbzAmgyuhebIvmfpbi67/24/2024Updated that final results are not back from [facility] yet,ReasonCommentsPatient Education Chemotherapy TeachingReasonCommentsChemotherapyC1 BrentuximabReasonComments Port/VAD CarePort flushReasonCommentsFollow-upReasonOnset DateCommentsDiarrhea 09/30/2023Having 8-10 diarrhea stools since last evening.ReasonOnset Date KuzwgnkvAbpncixj81/05/2024ReasonOnset DateCommentsMed Bumiwu674Reason CommentsPort/VAD CarePort drawReasonOnset DateCommentsMed Rezlch0506/10/2024Reason Onset DateCommentsMed Zasvpe9306/13/20247654SvdpriRiuimysuXcqvvcpttswyM3 OpdivoReason CommentsPort/VAD CareCBC CMP Thyroid panelReasonCommentsPort/VAD CarePort draw ReasonOnset DateCommentsMed Tarxmb3709/13/2024ReasonCommentsLabs OnlyCBC CMP ThyroidReasonCommentsPort/VAD CareCBC CMP TSHReasonCommentsMed Refill FOR RECORDS PERTAINING TO PATIENTS WHO ARE [...] BE BASED ON THE PRIMARY CLINICAL RECORDS. [facility]. provides no warranty or guarantee of the accuracy or completeness of information in this document.
--- NOTE | 2025-03-03 12:30 | XR_ITS ---
The [address] [address] Patient Name: TORSTEN HARMON MRN: [id number] date: 1955 Sex: M Assigned Patient Location: LAB Current Patient Location: CARD Accession/Order Number: [id number] Exam Date: 03/03/2025 12:38 Report Date: 03/03/2025 13:24 At the request of: RYAN SILVA Procedure: XR chest 2V Chest 2 views CLINICAL HISTORY: Shortness Of Breath COMPARISON: Chest 09/01/2023 FINDINGS: Right-sided port tip in the SVC. The fibular device is present. Sternotomy wires are noted. Heart is normal in size. Lungs are clear. Scarring left costophrenic angle. No free air. XR/XR chest 2V IMPRESSION: NO ACUTE CARDIOPULMONARY ABNORMALITY. Impression dictated by: Jonathan Alfonso Jr., D.O. 03/03/2025 1:24 PM Dictation Location: [employer] Electronically authenticated by: [id number] Y Date: 03/03/2025 13:24
[2025-03-03 12:35] LABS: Hematocrit 46.6 % (42.0-54.0); Hemoglobin 15.1 g/dL (14.0-18.0); Mean Corpuscular HGB Conc 32.4 g/dL (29.9-35.2); Mean Corpuscular Hemoglobin 31.7 pg (25.9-34.0); Mean Corpuscular Volume 97.9 fL (80.0-94.0); Platelet Count 343 10^3/uL (150-450); Red Blood Count 4.76 10^6/uL (4.70-6.10); White Blood Count 15.5 10^3/uL (4.0-11.0)
[2025-03-03 13:07] LABS: Anion Gap 11.8; Blood Urea Nitrogen 14.0 mg/dL (7.0-18.0); Calcium 9.6 mg/dL (8.5-10.1); Carbon Dioxide 29.8 mmol/L (21.0-32.0); Chloride 102 mmol/L (98-107); Estimated GFR (African America >60 (>=60 mL/min/1.73m^2); Estimated GFR (Non-African Ame >60 (>=60 mL/min/1.73m^2); Glucose 124 mg/dL (74-106); NT Pro B Type Natriuretic Pept 103.0 pg/mL (<=900.0); Potassium 4.6 mmol/L (3.5-5.1); Sodium 139 mmol/L (136-145)
[2025-03-03 13:36] LABS: Atypical Lymphocytes % Manual 13.0 %; Atypical Lymphocytes Abs Man 2.01; Basophils Abs Manual 0.00 10^3/uL (0.00-0.10); Basophils Percent Manual 0.0 % (0.2-2.0); Eosinophils Absolute Manual 0.93 10^3/uL (0.00-0.70); Eosinophils Percent Manual 6.0 % (0.9-7.0); Lymphocytes Absolute Manual 5.89 10^3/uL (1.20-3.80); Lymphocytes Percent Manual 38.0 % (20.5-60.0); Monocytes Absolute Manual 1.55 10^3/uL (0.30-0.80); Monocytes Percent Manual 10.0 % (1.7-12.0); Segmented Neut Absolute Manual 4.96 10^3/uL (1.4-6.5); Segmented Neutrophils % Manual 32.0 (43.0-75.0)
== END 2025-03-03 12:11 | disposition home or self-care (01) ==
PROVIDERS: Visit Provider Internal Medicine Interventional Cardiology
DX: R06.02 Shortness of breath (principal); I50.20 Unspecified systolic (congestive) heart failure
CPT/HCPCS: 36415; 71046; 80048; 83880; 85007; 85027

== ENCOUNTER 2025-03-06 07:55 | Outpatient (OUT) | payer MEDICARE, OTHER, SELFPAY ==
--- OUTSIDE RECORDS SUMMARY | 2024-08-24 04:00 | XMS_ITS ---
Author Organization [facility] Address [address] [address] Care Team Providers Care Ultrasound Technol Name Role Phone Antoine Coulter Primary Care Provider ANT Machado Unavailable [phone] REASON FOR VISIT 1 month f/u Encounters Encounter Location Date Provider Diagnosis [facility] [address] [place] [id number] 08/24/2024 ANT MURPHY Plan Of Treatment Next Appt Details Provider Name:ANT MURPHY, 11/2024 11:30:00 AM, [id number] [place] [address], [phone], Progress Notes * Raul HARMONDOB: 8 (69 yo M)Acc No.[id number]:08/24/2024 Progress Notes Patient: Raul REYNOLDS :?ANT MURPHY APRN, CNPDOB:1955???Age:68 Y ???Sex:MaleDate:08/24/2024Phone:[phone]:[address] [place], [place] [id number]:Antoine Coulter Subjective: * Chief Complaints: * 1 . 1 month f/u. * Medical History: Objective: * Vitals: Assessment: Plan: * Treatment: Care Plan: * Problems: * Billing Information: * Visit Code: * Procedure Codes: Care Plan Details* * Electronic signature of ANT MURPHY on 03/06/2025 at 08:00 AM ESTSign off status: Pending * Provider: Jessica MURPHY APRN, CNP Date: 0 08/24/2024 Generated for Printing/Faxing/eTransmitting on:?03/06/2025 08:00 AM EST
--- OUTSIDE RECORDS SUMMARY | 2025-03-03 11:15 | XMS_ITS | Encounter Summary ---
Author Organization [facility] Address [address] [place] [address] Care Team Providers Care Shape Carver Name Role Phone Emilia Avery TELECOMMUNICATIONS ENGINEER-C Primary Care Provider [phone] Encounter Details DateTypeDepartmentCare Team (Latest Contact Info)Wpourtsijry20/05/2025 11:15 AM ESTOffice Visit [facility] [place] [address] [place] [address] Francisco Tena MD [address] [place] [address] [facility] [place] [address] Shortness of breath (Primary Dx); Paroxysmal atrial fibrillation (CMS/HCC); 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; Heart failure with [...] and Gender InformationValueDate Recorded Sex Assigned at NhoncXpzy77/28/2025 2:43 PM EDTLegal RjoEwbj1809/25/2021 11:59 PM EDTGender DzqzlgnxSccs95/28/2025 2:43 PM EDTSexual OrientationHeterosexual or Inwyewqs69/28/2025 2:43 PM EDTdocumented as of this encounter Last Filed Vital Signs Vital SignReadingTime TakenCommentsBlood Xomcrwix608/8503/03/2025 11:20 AM EST Kgaxw358003/03/2025 11:20 AM ESTTemperature--Respiratory Rate--Oxygen Saturation 94%03/03/2025 11:20 AM ESTInhaled Oxygen Concentration--Jjgptc590 kg (234 lb) 03/03/2025 11:20 AM LCIWakoes095.4 cm (6' 1 )03/03/2025 11:20 AM ESTBody Mass Index30.8703/03/2025 11:20 AM ESTdocumented in this encounter Progress Notes * Francisco Tena MD - 03/03/2025 11:15 AM EST Images from the original note were not included. [facility] Subjective Raul Haywood is a 69 [...] Constipation Dizziness and giddiness Drug-induced insomnia (CMS/HCC) correction (current) use of anticoagulants Neuropathy of both [...] was admitted to the emergency room at [facility] with shortness of breath. Following investigations and transfer to [facility] he was found to have non-Hodgkin's lymphoma [...] and other tests Cardiac device check 01/05/2025: [facility] [employer] Heart Failure Report THORACIC IMPEDANCE [...] Optivol uid index continues to be exceeded. PRODUCTION CONTROL MANAGER PRODUCTION CONTROL MANAGER 13.2% Echocardiogram 07/03/2023: Left Atrium: Agitated saline [...] 171, LDL 68 Echo 10/12/17 at the [facility] LVEF ~45%. 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 Heart failure with [...] Plan of Treatment DateTypeDepartmentCare Team (Latest Contact Info)Crxqqotvsgi2025 11:45 AM ESTOffice Visit [facility] at [address] [phone] Francisco Tena MD [address] [facility] [address] [facility] [place] [address] NameTypePriorityAssociated DiagnosesOrder ScheduleCBC and differentialLabRoutine [...] (CMS/HCC) Atrial fibrillation 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
--- OUTSIDE RECORDS SUMMARY | 2025-03-06 07:59 | XMS_ITS ---
Author Organization [employer] [facility] tem Address [id number] [place] [address] Care Team Providers Care Morgue Keeper Name Role Phone Antoine Coulter MD Primary Care Provider [phone] Active Problems ProblemNoted DateDiagnosed DateHistory of ziojuqydinl52/10/2025Hyponatremia 10/03/20232932Ifuqelwsvzt94/06/9722Kxuqucefyyzgzl71/06/2024Enteritis due to Mgqmdjdsw14/06/2024Hodgkin lymphoma, unspecified Hodgkin lymphoma type, unspecified body kmwdkl3310/02/2023aroxysmal atrial ktyslunpwwwf66/20/2024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07/22/2023Multifocal izectgkgh55/03/2024Mass of lung06/25/2023enign hypertensive cardiomyopathy with heart nnskjci2707/12/2021 Overview (07/07/2023): Last Assessment & Plan: Currently b/p is stable 100/61, med adjustments for c/o hypotension- and new med list provided to pt- he voiced understanding Chronic systolic heart wvgcsmw5507/12/2021 Overview (07/07/2023): Last Assessment & Plan: [facility] [...] function and electrolytes- HTN (hypertension)07/12/2021Factor V Leiden qzrmbpki81/01/2019 Overview (07/07/2023): Last Assessment & Plan: On Eliquis anticoagulation Qtrwdflbangrsb92/18/2017 Overview (07/07/2023): Last Assessment & Plan: Titus heart class II Currently euvolemic without exacerbation Continue goal-directed medical therapy Patient admits low-sodium diet, fluid restriction and monitor his weight daily states has been verystable some fluctuation here and there between 3 pounds Coronary xvlmrcpulgmdbou25/18/2017 Overview (07/07/2023): Last Assessment & Plan: Coronary [...] Hodgkin ly mphoma of intrapelvic lymph nodes ([facility]-HCC) Treatment Medications No medications scheduled. 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 ([facility]-HCC) Treatment Medications* * dacarbazine (DTIC) chemo IVPB [...] Lifetime Dose Tracking * ChemicalLifetime DoseAutomatic EntryManual Bapcmuckieyhrknx488.155 mg/m2 (687 mg)297.155 mg/m2 (687 mg)0 mg/m2 (0 mg)Anthracycline .035 Units/m2 (152.667 Units)66.035 Units/m2 (152.667 Units)0 Units/m2 (0 Units)Fluoroscopy1 mGy1 mGy0 mGy Resolved Problems ProblemNoted DateDiagnosed DateResolved DateAbnormal WBC count10/07/2023 09/16/20245310Vvezsszu79Dehydration
--- OUTSIDE RECORDS SUMMARY | 2025-03-06 07:59 | XMS_ITS | Clinical Summary ---
Author Organization [facility] Address [address] [place] [address] Care Team Providers Care Supervisor Paste Mixing Name Role Phone Francisco Tena MD Unavailable [phone] Pari Velazquez MD Unavailable [phone] Antoine Coulter MD Primary Care Provider [phone] Allergies No known active allergies Medications MedicationSigDispense [...] Active Active Problems ProblemNoted DateDiagnosed DateFactor V Elckgh6912/28/2018Obesity, Class II, BMI 35-39.91 Family History Medical [...] is lower riskNot on file03/06/2020 Data from: https://www.neighborhoodatlas.[facility] [facility].edu/. Last address used for calculationNot on file03/06/2020Sex and Gender InformationValueDate Recorded Sex Assigned at BirthNot on fileLegal HmcBngs3808/21/2017 3:00 PM EDTGender IdentityNot on fileSexual OrientationNot on file Last Filed Vital Signs Vital SignReadingTime TakenCommentsBlood Ylxaoznw350/8109/16/2019 10:36 AM EDT Gjzgs442409/16/2019 10:36 AM EDTTemperature--Respiratory Rate--Oxygen Saturation 96%09/16/2019 10:36 AM EDTInhaled Oxygen Concentration--Ksvrxj354.5 kg (283 lb 4.8 oz)09/16/2019 10:36 AM PZXQkesdu456.4 cm (6' 1 )09/16/2019 10:36 AM EDTBody Mass Index37.3806 10:36 AM EDT Plan of Treatment Health MaintenanceDue DateLast DoneCommentsAnxiety Flrnrtcql64/04/1976Depression Pyqbtegfk77/04/1976Hepatitis C Yizldsudv69/04/1976DTaP,Tdap,Td Vaccine (1 - Tdap)1976Lipid Oozjqcpvg70/04/1993CT Sjjvcvciopnf69/04/2003Cologuard (FIT-DNA)12/31/20026094Mxrffqucece45/04/2003Colorectal Cancer Mwrgaftud55/04/2003 Fecal Occult Blood2002Prostate Cancer Screening Rouyzpocxi86/04/2003 Rnzsncwflpzpt17/04/2003Pneumococcal Vaccine: 50+ (1 of 1 - PCV)01/01/2008 Shingrix Vaccine (1 of 2)01/01/2008Diabetes Zqsjpponr26, 08/31/2017Advance Directive Qcumnxvwil99/01/2025ovid-19 Vaccine (2024- season)2024Influenza Vaccine (#1)RSV Vaccine (1 - 1- dose 75+ series)2032 Procedures Procedure NamePriorityDate/TimeAssociated DiagnosisCommentsCOMPREHENSIVE METABOLIC EGGVEGkpynmf37/04/2018 1:16 PM EDT Coronary artery disease involving jamul coronary artery of jamul heart without angina pectoris Chronic combined systolic and diastolic heart failure (HCC) Ischemic cardiomyopathy from Last 3 Months or Most Recently Relevant to Health Maintenance Results * (ABNORMAL) COMP METABOLIC PANEL (08/31/2017 1:16 PM EDT)ComponentValueRef RangeTest MethodAnalysis TimePerformed AtPathologist SignatureProtein, Total 7.86.3 - 8.0 g/dL08/31/2017 6:21 PM [facility]TCM[facility] MAIN LABORATORYAlbumin 4.43.9 - 4.9 g/dL08/31/2017 6:21 PM [facility] MAIN LABORATORYCalcium 9.78.5 - 10.2 mg/dL08/31/2017 6:21 PM [facility] Bilirubin, Total0.50.2 - 1.3 mg/dL08/31/2017 6:21 PM [facility] MAIN LABORATORYAlkaline Qbsxqhnztqn7997 - 108 U/L08/31/2017 6:21 PM [facility] LARXRDQQEQCBU3029 - 40 U/L08/31/2017 6:45 PM [facility] MA[facility] QLWEOJBZJIMffbuve0911 - 99 mg/dL08/31/2017 6:21 PM [facility] MAIN LABORATORYComment: The [place] Diabetes Association (ADA) provides guidance for cutoff [...] Standards of Medical Care in Diabetes 2016, [place] [employer]. Diabetes Care. 2016.39(Suppl 1). SSU652 - 24 mg/dL08/31/2017 6:21 PM [facility]ORY Creatinine1.29(H)0.73 - 1.22 mg/dL08/31/2017 6:21 PM [facility] XWOUYNPCLZFfltyt173615 - 144 mmol/L08/31/2017 6:21 PM [facility] LABORATORYPotassium4.83.7 - 5.1 mmol/L08/31/2017 6:21 PM [facility] MAIN NSDUCMGKQPGbgjkzdf5329 - 105 mmol/L08/31/2017 6:21 PM [facility] UYZCDGFIICXW322(H)22 - 30 mmol/L08/31/2017 6:21 PM [facility] LABORATORYAnion Rkj711 - 18 mmol/L08/31/2017 6:21 PM [facility] JVJFOEJDTMTBE4791 - 54 U/L08/31/2017 6:45 PM [facility] LABOR[facility]ORY eGFR->6006 6:21 PM [facility] eGFR-All Other Races57.08/31/2017 6:21 PM [facility] LABOR[facility]ORY Comment: eGFR (Estimated GFR) [...] Velazquez MDLABORATORY Final ResultPerforming OrganizationAddressCity/State/ZIP CodePhone Number [facility] [address] [place] [address] from Last 3 Months or Most Recently Relevant to Health Maintenance Care Teams Team MemberRelationshipSpecialtyStart [place] [address] [place] [address] PCP - GeneralFamily Medicine09/16/19 [place] [address] [facility] [address] [place] [address] ReferringCardiology08/21/17 [place] [address] [facility] [address] [place] [phone] Primary Staff PhysicianCardiology06/15/18
--- OUTSIDE RECORDS SUMMARY | 2025-03-06 08:00 | XMS_ITS | Clinical Summary ---
Author Organization [facility] Address [address] [place] [address] Care Team Providers Care Ferryboat Captain Name Role Phone Antoine Coulter MD Primary Care Provider [phone] Allergies No known active allergies Medications MedicationSigDispense QuantityRefillsLast FilledStart DateEnd DateStatus atorvastatin (Lipitor) 20 MG tablet Take 20 mg by mouth at lkrncll7811/16/2023ctive bumetanide (Bumex) 2 MG tablet Take 2 [...] DailyActive Active Problems ProblemNoted DateDiagnosed DateBenign essential frjrwipmbrbu10/25/2024 Sruneptnhjry02/25/2024izziness and szyxqfwgl27/25/2024rug-induced insomnia 02/22/2024Long term (current) use of ptwuxdypkrtwjt38/25/2024Neuropathy of both feet02/22/20241308Krvjfaisn79/25/9040Vfodqwbcxkf44/25/2024Tubular adenoma of colon 02/22/2024bnormal WBC count10/07/20235641Aoknlklovwe00/06/2024Hypomagnesemia 10/03/20233683Thbuaygklgap82/06/2024Hodgkin kahzxqfs66/05/2024aroxysmal atrial /20/2024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07/22/2023Multifocal wgoznrfcp66/03/2024Mass of lung06/25/2023enign hypertensive cardiomyopathy with heart zijtxkg6707/12/2021 Overview (02/19/2024): Last Assessment & Plan: Currently b/p is stable 100/61, med adjustments for c/o hypotension- and new med list provided to pt- he voiced understanding Chronic systolic heart hpsuohz7807/12/2021 Overview (02/19/2024): Last Assessment & Plan: [facility] [...] and electrolytes- History of coronary artery bypass tvnztef3507/12/20210184Gtnucbhkaxxs78/15/2022 Implantable cardioverter-defibrillator (ICD) in situ07/12/2021Nonsustained ventricular qokifigvbzu42/15/2022Factor V Leiden mutation ([facility])12/28/2018 Overview (02/19/2024): Last Assessment & Plan: On Eliquis anticoagulation Obesity, Class II, BMI 35-39.910/7098Uymsdaeypaaprm09/18/2017 Overview (02/19/2024): Last Assessment & Plan: [place] heart class II Currently euvolemic without exacerbation Continue goal-directed medical therapy Patient admits low-sodium diet, fluid restriction and monitor his weight daily states has been verystable some fluctuation here and there between 3 pounds Coronary dwhivzwjvcwwodi15/18/2017 Overview (02/19/2024): Last Assessment & Plan: Coronary artery disease is Stable Continue GDMT- ASA, lipitor, coreg continue risk factor modifications- heart healthy diet, regular exercise as tolerated and continue all medications. Resolved Problems ProblemNoted DateDiagnosed DateResolved KjisKcgxrlbdomn13 Oolflvgv36Enteritis due to Jdxdjttez68 Family History Medical HistoryRelationNameCommentsHeart failureFatherCancerMotherRelationName StatusCommentsFatherMother Social History Tobacco UseTypesPacks/DayYears UsedDateSmoking Tobacco: NeverSmokeless Tobacco: Never Tobacco Cessation:Counseling Given: Not Answered Alcohol UseStandard Drinks/WeekCommentsNot Currently0 (1 standard drink = 0.6 oz pure alcohol)Sex and Gender InformationValueDate RecordedSex Assigned at Not on fileLegal ObxMdko97/20/2024 10:28 AM ESTGender IdentityNot on fileSexual OrientationNot on file Last Filed Vital Signs Vital SignReadingTime TakenCommentsBlood Phurbhmj383/7603 9:04 AM EST Nruoe40299 9:04 AM ESTTemperature--Respiratory Rate--Oxygen Saturation-- Inhaled Oxygen Concentration--Nmgkmp13.7 kg (200 lb)05/31/2024 9:04 AM ESTHeight 185.4 cm (6' 1 )05/31/2024 9:04 AM ESTBody Mass Index26.3903 9:04 AM EST Plan of Treatment Not on file Insurance * Guarantor: Raul Haywood TypeRelation to PatientDate of BirthPhone Billing AddressPersonal/IhhpkfLehi62/04/1956 [address] [address] Care Teams Team MemberRelationshipSpecialtyStart DateEnd Antoine Coulter MD [address] [place] [address] PCP - GeneralFamily Ivtdfmby04/25/24
--- OUTSIDE RECORDS SUMMARY | 2025-03-06 08:00 | XMS_ITS | Clinical Summary ---
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 60 tablet 11010/13/2023ctive Additional Information Patient taking differently: 2.5 mgoral2 times daily, Reported on 03/03/2025 bumetanide (Bumex) 1 mg tablet Indications:Heart failure with improved ejection fraction (HFimpEF) (CMS/[facility]) Take 1 tablet (1 mg) by mouth [...] 24 hr tablet Indications:Coronary artery disease involving samish coronary artery of samish heart without angina pectoris,Heart failure with improved ejection fraction (HFimpEF) (CMS/HCC)Take 0.5 tablets (12.5 mg) by mouth once daily as directed. 45 tablet ctive atorvastatin (Lipitor) 20 mg tablet Indications:Coronary artery disease involving samish heart, unspecified vessel or lesion type, unspecified [...] 5Active Active Problems ProblemNoted DateDiagnosed DateHistory of pnfdxfevalr54/10/2025enign essential kbnssvvepbef08/25/1745Fmknqkghvifr00/25/2024izziness and efizssxrm86/25/2024 Drug-induced twiipmhu35/25/2024Long term (current) use of anticoagulants 02/22/2024Neuropathy of both feet02/22/20241677Rqzzgcksn93/25/2024Tachycardia 02/22/2024Tubular adenoma of colon02/22/2024bnormal WBC count10/07/2023 Jktftkzoyib89/06/9976Eretxxnt96/06/2024Enteritis due to Jmgcbiwfw52/06/2024 Zputzjksgxl86/06/0138Xbzigzfctsaayd83/06/9706Uskqpdfthrsn24/06/2024Hodgkin /05/2024aroxysmal atrial clrizsxxrhmz53/18/2024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07/22/2023Multifocal pneumonia 07/01/2023Mass of lung06/25/2023Factor V Leiden aldnwwqt86/15/2022 Assessment & Plan (02/05/2022 10:10 AM EST): On Eliquis anticoagulation History of coronary artery bypass gcydabf7507/12/2021 Assessment & Plan (08/20/2022 12:51 PM EDT): stable Benign hypertensive cardiomyopathy with heart jicfrxp8807/12/2021 Assessment & Plan (06/10/2023 2:26 PM EDT): [...] 6 months for device interrogation Nonsustained ventricular ndnbqbuajff05/15/2022 Assessment & Plan (06/10/2023 2:23 PM EDT): [...] palpitations or concerns today Chronic systolic heart axwtxrg7807/12/2021 Assessment & Plan (06/10/2023 2:27 PM EDT): [facility] II- currently euvolemic without exacerbation Repeat echocardiogram [...] Assessment & Plan (08/20/2022 1:23 PM EDT): [facility] II Continue GDMT- ASA, lipitor, bumex, entresto and coreg. Diuretic therapy- bumex 2 mg bid Monitor daily weights, I&O, fluid restriction 1.5-2L/day, Assessment & Plan (02/05/2022 10:36 AM EST): As above with cardiomyopathy Continue goal-directed medical therapy with aspirin, Lipitor, Coreg, Bumex, Entresto Currently euvolemic without any limiting symptoms or concerns at this time Hypertensive qdfomlgc01/15/2022Obesity, Class II, BMI 35-39.910/4385Jgbnghgpkvpeil04/18/2017 Assessment & Plan (02/05/2022 10:09 AM EST): [place] heart class II Currently euvolemic without exacerbation Continue goal-directed medical therapy Patient admits low-sodium diet, fluid restriction and monitor his weight daily states has been verystable some fluctuation here and there between 3 pounds Coronary efakvocezethxci67/18/2017 Assessment & Plan (06/10/2023 2:23 PM EDT): [...] medications No concerning symptoms today Encounters DateTypeDepartmentCare WojoXymonsxrrdx93/05/2025 11:15 AM ESTOffice Visit [facility] [place] [address] [place] [address] Francisco Tena MD Shortness of breath (Primary Dx); Paroxysmal atrial fibrillation (CMS/HCC); Coronary artery disease involving samish coronary artery of samish heart without angina pectoris; Heart failure with improved ejection fraction (HFimpEF) (CMS/HCC); History of coronary artery bypass surgery; Factor V Leiden; Implantable cardioverter-defibrillator (ICD) in situ01/05/2025 7:30 AM EDT Ancillary Procedure [facility] [address] [place] [phone] Pre-operative cardiovascular examination, ICD in place01/05/2025Orders Only [facility] [address] [place] [phone] Nancy Solomon MD 01/05/2025Orders Only [facility] [address] [place] [phone] Peter Emery MD 12/30/2024Refill [facility] [address] [place] [phone] Evelin Raymundo MA Paroxysmal atrial fibrillation (CMS/HCC)12/21/2024 7:30 AM EDTAncillary Procedure [facility] [address] [place] [address] Pre-operative cardiovascular examination, ICD in place12/20/2024 1:30 PM EDT Ancillary Procedure [facility] [address] [place] [phone] Encounter for implantable defibrillator reprogramming or checkfrom [...] and Gender InformationValueDate Recorded Sex Assigned at EltuyPzhr01/28/2025 2:43 PM EDTLegal VprJfdi9309/25/2021 11:59 PM EDTGender YholwprxZyxg61/28/2025 2:43 PM EDTSexual OrientationHeterosexual or Roquidjl31/28/2025 2:43 PM EDT Last Filed Vital Signs Vital SignReadingTime TakenCommentsBlood Qmgwrcrr377/8512 11:20 AM EST Awqhb4146 11:20 AM ESTTemperature--Respiratory Asez9077 9:48 AM EDTOxygen Wcegcnpxkj24%03/03/2025 11:20 AM ESTInhaled Oxygen Concentration-- Fveynj094 kg (234 lb)03/03/2025 11:20 AM YIDYardlw132.4 cm (6' 1 )03/03/2025 11:20 AM ESTBody Mass Index30.8703/03/2025 11:20 AM EST Plan of Treatment DateTypeDepartmentCare Team (Latest Contact Info)Uopfmqdgcod42/31/2025 11:45 AM ESTOffice Visit [facility] [address] [place] [address] Francisco Tena MD [address] [facility] [place] [address] Health MaintenanceDue DateLast DoneCommentsCT Fgzhhkhvluvz57/04/1958Colonoscopy 1957Colorectal Cancer Xvptvhgim20/04/1958FIT-DNA1957FIT1957 FOBT1957Medicare Annual Wellness (AWV)1955 1142Bthixlhezqzoi55/04/1958HIB Vaccines (1 of 1 - Risk 1-dose series)04/02/1959Meningococcal Vaccine (1 - Risk 2-dose series)01/01/1960Meningococcal B Vaccine (1 of 4 - Increased Risk) 01/01/1968Depression Sfoavpowq71/04/1970Adult Eipdsni3401/01/1980Fall Risk Zvusuvchn27/04/2023OVID-19 Vaccine ( season)51, 01/13/2023, 01/24/2022, Additional history existsZoster VaccinesCompleted 03/22/2021, 1Pneumococcal Vaccine: 50+ LnmmuTxftmefln42/17/2023 Influenza IqcwytpShozdfspj86/24/2025, 01/05/2024, 01/02/2023, Additional history existsHPV VaccinesAged OutNo longer eligible based on patient's age to complete this topicIPV VaccinesAged OutNo longer eligible based on patient's age to complete this topicRotavirus VaccinesAged OutNo longer eligible based on patient's age to complete this topic Procedures Procedure NamePriorityDate/TimeAssociated DiagnosisCommentsCARDIAC DEVICE CHECK CHECK - AEMDDKRlxnzwk26/14/2025 12:57 PM EDT Pre-operative cardiovascular examination, ICD in place CARDIAC DEVICE CHECK CHECK - BCHSVMJdnfidd01/14/2025 12:55 PM EDT Pre-operative cardiovascular examination, ICD in place CARDIAC DEVICE CHECK - REMOTE ALERT - NELTykhzlg41/09/2025 12:00 AM EDTCARDIAC DEVICE CHECK - REMOTE ALERT - DCOSnmmhyf60/09/2025 12:00 AM EDTCARDIAC DEVICE CHECK - IN CLINIC - ICD SINGLE CHAMBER W/ NMRTOrcuhls37/24/2025 12:09 PM EDT Encounter for implantable defibrillator reprogramming or check from Last 3 Months Results * CARDIAC DEVICE CHECK - REMOTE - ICD (01/10/2025 12:57 PM EDT) Only the most recent of2 resultswithin the time period is included. Specimen (Source)Anatomical Location / LateralityCollection Method / Volume Collection TimeReceived Time Narrative Authorizing ProviderResult TypeResult StatusBlair Almanza [facility] IMPLANTABLE CARDIAC DEVICE PROCEDURESFinal ResultPerforming OrganizationAddressCity/State/ZIP Code Phone Number CPACS * Cardiac device check - Remote alert ICD (01/05/2025 12:00 AM EDT) Only the most recent of2 resultswithin the time period is included. Anatomical RegionLateralityModalityOtherSpecimen (Source)Anatomical Location / LateralityCollection Method / VolumeCollection TimeReceived Time01/05/2025 Narrative Authorizing ProviderResult TypeResult StatusNancy Solomon [facility] IMPLANTABLE CARDIAC DEVICE PROCEDURESFinal Result * CARDIAC [...] DAccount TypeRelation to PatientDate of BirthPhone Billing AddressPersonal/EbkfowKwnp46/04/1956 [address] [address] Care Teams Team MemberRelationshipSpecialtyStart DateEnd Date Emilia Avery FNP-C [address] [place] [address] PCP - GeneralNurse Practitioner10/25/24
--- OUTSIDE RECORDS SUMMARY | 2025-03-06 08:00 | XMS_ITS | Clinical Summary ---
Author Organization [facility] Address [address] [place] [address] Phone Care Team Providers Care Inlayer Silver Name Role Phone Unavailable Primary Care Provider Unavailabl e Social History Tobacco UseTypesPacks/DayYears UsedDateSmoking Tobacco: Never AssessedSex and Gender InformationValueDate RecordedSex Assigned at BirthNot on fileLegal Sex Male02/21/2022 11:38 AM ESTGender IdentityNot on fileSexual OrientationNot on file Plan of Treatment Not on file
--- OUTSIDE RECORDS SUMMARY | 2025-03-06 08:00 | XMS_ITS | Patient Health Record ---
Author Organization [facility] Address [address] [place] [address] Care Team Providers Care Packing Clerk Name Role Phone YfnAntoine Primary Care Provider ANT Machado Unavailable [phone] Allergies No Known Allergies Reason For Referral No Information Medications Medication SIG (Take, Route, Frequency, Duration) Notes Start Date End Date Status Magnesium Oxide 400 MG 1 tablet as neede d Orally Once a day; Duration: 30 day(s) ActiveBumetanide 1 MG1 tablet Orally twice a day as neededActiveOndansetron HCl 8 MG1 tablet as needed Orally twice a dayActiveEliquis 2.5 MG1 tablet Orally twice a dayActivePotassium Chloride ER 20 MEQ1 tablet with food Orally Once a day if Bumex is taken; Duration: 30 day(s)ActiveColace 100 MG1 capsule as needed Orally three times a dayActiveProchlorperazine Maleate 10 MGas directed Orally ActiveAtorvastatin Calcium 20 MG1 tablet Orally Once a day; Duration: 30 day(s) ActiveDigoxin 250 MCG1 tablet Orally Once a dayActiveMetoprolol Succinate ER 25 MG0.5 tablet Orally Once a dayActiveGabapentin 300 MG1 capsule Orally 3 times a dayActiveAmiodarone HCl 200 MG1 tablet Orally twice a dayActiveB Complex -as directed OrallyActive Social History Tobacco Use: Social History Observation Description Date Details (start date - stop date) Never Smoker NA - NA Tobacco Use/Smoking Question Answer Notes Are you a nonsmoker Tobacco use other than smoking: Question Answer Notes Are you an other tobacco user? 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)ActiveconfirmedProblemCoronary artery disease (29969658)CAD (coronary artery disease) (I25.10)ActiveconfirmedProblemCongestive heart failure (37235051)CHF (congestive heart failure) (I50.9)ActiveconfirmedProblemHodgkin's disease (disorder) (643262543)Hodgkin lymphoma, unspecified Hodgkin lymphoma type, unspecified body region (C81.90)ActiveconfirmedProblemUse of anticoagulation (913197497)Chronic anticoagulation (Z79.01)Activeconfirmed ProblemBenign essential hypertension (3678381)Benign essential hypertension (I10)ActiveconfirmedProblemNeuropathy of both feet (G57.93)Activeconfirmed ProblemNosebleed (174486509)Nosebleed (R04.0)ActiveconfirmedProblemFactor 5 Leiden mutation (021341878)Factor V Leiden (D68.51)ActiveconfirmedProblem Dizziness and giddiness (132266951)Intermittent lightheadedness (R42)Active confirmedProblemClassical Hodgkin lymphoma (066776281)Classical Hodgkin lymphoma (C81.70)ActiveconfirmedProblemTubular adenoma of colon (270876807)Tubular adenoma of colon (D12.6)ActiveconfirmedProblemDrug-induced insomnia (92845428604282)Drug-induced insomnia (F19.982)Activeconfirmed Vital Signs Heart Rate 78 /min 02/07/2025 Juphnwroqbz31.8 degrees Gnzmswitbo28/11/2025Respiratory Rate18 /min02/07/2025 Qovuwwtb23 %02/07/2025lood pressure mm Hg02/07/20259543Oatwrn4 ft 1 in in02/07/2025lood pressure boplovuq009 mm Hg02/07/20251249Xphnex335 lbs11/15/2024MI 31.26 kg/m211/15/2024 Encounters Encounter Location Date Provider Diagnosis [facility] [address] [address] 03/15/2024 ANT MURPYH Nodular sclero sis Hodgkin lymphoma, intrapelvic lymph nodes C81.16 ; Neuropathy of both feet G57.93 and Encounter for palliative care Z51.[address] [address] 04/11/2024 ANT MURPHY Nodular sclero sis Hodgkin lymphoma, intrapelvic lymph nodes C81.16 ; Neuropathy of both feet G57.93 and Encounter for palliative care Z51.[address] [address] 05/09/2024 ANT MURPHY Nodular sclero sis Hodgkin lymphoma, intrapelvic lymph nodes C81.16 ; Neuropathy of both feet G57.93 ; Nosebleed R04.0 and Encounter for palliative care Z51.[address] [address] 06/06/2024 ANT MURPHY Nodular sclero sis Hodgkin lymphoma, intrapelvic lymph nodes C81.16 ; Neuropathy of both feet G57.93 and Encounter for palliative care Z51.[address] [address] 07/04/2024 ANT MURPHY Nodular sclero sis Hodgkin lymphoma, intrapelvic lymph nodes C81.16 ; Neuropathy of both feet G57.93 ; Eczema L30.9 and Encounter for palliative care Z51.[address] [address] 07/25/2024 ANT MURPHY Encounter for palliative care Z51.5 and Nodular sclerosis Hodgkin lymphoma, intrapelvic lymph nodes C81.[address] [address] 09/20/2024 ANT MURPHY Encounter for palliative care Z51.5 and Nodular sclerosis Hodgkin lymphoma, intrapelvic lymph nodes C81.[address] [address] 10/18/2024 ANT MURPHY Encounter for palliative care Z51.5 and Nodular sclerosis Hodgkin lymphoma, intrapelvic lymph nodes C81.[address] [address] 11/15/2024 ANT MURPHY Encounter for palliative care Z51.5 and Nodular sclerosis Hodgkin lymphoma, intrapelvic lymph nodes C81.16 [facility] [id number] [place] [address] 12/13/2024 ANT MURPHY Encounter for palliative care Z51.5 and Nodular sclerosis Hodgkin lymphoma, intrapelvic lymph nodes C81.16 [facility] [id number] [place] [address] 01/10/2025 ANT MURPHY Encounter for palliative care Z51.5 and Nodular sclerosis Hodgkin lymphoma, intrapelvic lymph nodes C81.16 [facility] [address] [place] [address] 02/07/2025 ANT MURPHY Encounter for palliative care Z51.5 and Nodular sclerosis Hodgkin lymphoma, intrapelvic lymph nodes C81.[address] [place] [address] [address] 08/23/2024 ANT MURPHY [facility] [address] [address]/2025ANT MURPHY [facility] - [id number] [place] [phone] 09/09/2024RAE ALLENToledo [id number] [place] [address] 11/29/2024RAE ALLENToledo [id number] [place] [phone] 01/09/2025RAFouzia ALLENToledo [address] [address] 01/10/2025RAE ALLENToledo [id number] [place] [address] 01/24/2025RAE ALLENToledo [id number] [place] [phone] 02/21/2025ANT MURPHY Assessments Encounter Date Diagnosis (ICD Code) Assessment Notes Treatment Notes Treatment Clinical Notes Section Notes 03/15/2024 Nodular sclerosis Ho dgkin lymphoma, intrapelvic lymph nodes (ICD-10 - C81.16) Patient diagnosed with Hodgkin Lymphoma in June 2023. Following with oncology, Dr. Atkinson. Last chemotherapy treatment on 02/11/24 with Brentuximab. He had PET scan on 02/19/24 and follow up appointment with Dr. Atkinson on 03/04/24 where findings were discussed. Patient states that new hot spots were seen and had a biopsy of the bone on 03/11/24. He is waiting for biopsy results. No follow up appointment currently scheduled. States Dr. Atkinson did mention doing radiation treatment, but unsure of exact plan. Appetite good. Weight stable (slight increase). Patient voices he does get SOB with exertion but recovers easily by sitting down for a few minutes.Monitors O2 saturation and states nothing below 90%. No respiratory distress noted during visit; patient able to hold conversation. O2 sat 95%. Patient denies pain currently. Occasional neck and back pain that is relieved by OTC Tylenol. Discussed protein snacks and supplements Encouraged patient to report any new or worsening symptoms. Continue to follow with Dr. Atkinson. Encouraged patient to call with any questions or concerns. PET scan 02/19/24: FINDINGS: Physiologic uptake in the neck and pharyngeal soft tissues. No aberrant large cervical, supraclavicular or axillary lymph nodes. There is decreased size of the subcarinal lymph node however there is increased activity measuring SUV of 9.9. There is decreased size and activity of the right hilar andsuprahilar lesion. There are new abnormal foci of radiotracer uptake within the osseous structures involving the right lateral 10th rib, the L2 vertebral level as well as the right and left tissue tuberosity is more pronounced on the left which suggest osseous disease. There are no newly avid or enlarged mesenteric or pelvic lymph nodes. Atherosclerotic changes of the abdominal aorta noted. IMPRESSION: 1. Decreasing size however increasing activity within the subcarinal lymph nodes with new osseous foci involving the right lateral 10th rib, L2 vertebral body as well as the left greater than right initial tuberosity suggestive of metabolically active neoplastic disease. [place]ille scale 5. 04/11/2024Nodular sclerosis Hodgkin lymphoma, intrapelvic lymph nodes (ICD-10 - C81.16) Patient diagnosed with Hodgkin Lymphoma in June 2023. Following with oncology, Dr. Atkinson. Last chemotherapy treatment on 02/11/24 with Brentuximab. Patient's bone biopsy results came back unremarkable. Plan is for patient to have PET scan done theend of April and follow up appointment with Dr. Atkinson on 06/02/24. Patient is not currently receiving any treatment and plan to hold off on radiation. Appetite good. Weight stable (slight increase). Patient states he still occasionally gets SOB with exertion but it has improved. Monitors O2 saturation on his own. Patient denies pain currently. Occasional neck and back pain that is relieved by OTC Tylenol. Continues to have generalized weakness. He is doing exercises on his own daily. Continues to ambulate with walker. Discussed protein snacks and supplements Encouraged patient to report any new or worsening symptoms. Continue to follow with Dr. Atkinson. Encouraged patient to call with any questions or concerns. Biopsy Bone: 03/11/24: Final Pathologic Diagnosis Left ischium bone: Unremarkable bone. No maligancy identified. PET scan 02/19/24: FINDINGS: Physiologic uptake in the neck and pharyngeal soft tissues. No aberrant large cervical, supraclavicular or axillary lymph nodes. There is decreased size of the subcarinal lymph node however there is increased activity measuring SUV of 9.9. There is decreased size and activity of the right hilar andsuprahilar lesion. There are new abnormal foci of radiotracer uptake within the osseous structures involving the right lateral 10th rib, the L2 vertebral level as well as the right and left tissue tuberosity is more pronounced on the left which suggest osseous disease. There are no newly avid or enlarged mesenteric or pelvic lymph nodes. Atherosclerotic changes of the abdominal aorta noted. IMPRESSION: 1. Decreasing size however increasing activity within the subcarinal lymph nodes with new osseous foci involving the right lateral 10th rib, L2 vertebral body as well as the left greater than right initial tuberosity suggestive of metabolically active neoplastic disease. [place] scale 5. 05/09/2024Nodular sclerosis Hodgkin lymphoma, intrapelvic lymph nodes (ICD-10 - C81.16) Patient diagnosed with Hodgkin Lymphoma in June 2023. Following with oncology, Dr. Atkinson. Last chemotherapy treatment on 02/11/24 with Brentuximab. Patient's bone biopsy results came back unremarkable. Plan is for patient to have PET scan done on 05/25/24 and follow up appointment with Dr. Atkinson on 06/02/24. Patient is not currently receiving any treatment and plan to hold off on radiation. Appetite good. Weight stable (slight increase). Patient states he still occasionally gets SOB with exertion but it has improved. Monitors O2 saturation on his own. Patient denies pain currently. Occasional neck and back pain that is relieved by OTC Tylenol. Continues to have generalized weakness. He was doing exercises on his own daily (currently on hold since recent nosebleed/cauterization). Continues to ambulate with walker. Discussed protein snacks and supplements Encouraged patient to report any new or worsening symptoms. Continue to follow with Dr. Atkinson. Encouraged patient to call with any questions or concerns. Biopsy Bone: 03/11/24: Final Pathologic Diagnosis Left ischium bone: Unremarkable bone. No maligancy identified. PET scan 02/19/24: FINDINGS: Physiologic uptake in the neck and pharyngeal soft tissues. No aberrant large cervical, supraclavicular or axillary lymph nodes. There is decreased size of the subcarinal lymph node however there is increased activity measuring SUV of 9.9. There is decreased size and activity of the right hilar andsuprahilar lesion. There are new abnormal foci of radiotracer uptake within the osseous structures involving the right lateral 10th rib, the L2 vertebral level as well as the right and left tissue tuberosity is more pronounced on the left which suggest osseous disease. There are no newly avid or enlarged mesenteric or pelvic lymph nodes. Atherosclerotic changes of the abdominal aorta noted. IMPRESSION: 1. Decreasing size however increasing activity within the subcarinal lymph nodes with new osseous foci involving the right lateral 10th rib, L2 vertebral body as well as the left greater than right initial tuberosity suggestive of metabolically active neoplastic disease. Deaville scale 5. 06/06/2024Nodular sclerosis Hodgkin lymphoma, intrapelvic lymph nodes (ICD-10 - C81.16) Patient diagnosed with Hodgkin Lymphoma in June 2023. Following with oncology, Dr. Atkinson. Last chemotherapy treatment on 02/11/24 with Brentuximab. Patient had PET scan done 05/27/24 with evidence for progression of bony disease and liver involvement. Patient did have follow up with Dr. Atkinson on 06/02. Plan for biopsy. If biopsy confirms progression,the plan is to start Nivolumab plus AVD. Appetite good. Weight has increased about 5 pounds. Patient states he will occasionally get SOB with exercise. Monitors his O2 saturation and states ithas been > 90%. Patient denies pain currently. Occasional neck and back pain that is relieved by OTC Tylenol. Continues to have generalized weakness but has improved with exercise. Continues to ambulate with walker. Denies any further falls. Discussed protein snacks and supplements Encouraged patient to report any new or worsening symptoms. Continue to follow with Dr. Atkinson. Encouraged patient to call with any questions or concerns. PET Scan 05/27/24 IMPRESSION: There is multifocal bone activity which looks increased in extent and distribution. There is increase in hypermetabolic lymphadenopathy with dominant subcarinal mass, mild right axillary and supraclavicular disease. There is mild multifocal liver activity which looks new. There is suggestion of right pleural disease at the right lung base. There are small lung nodules which looks new but do not demonstrate abnormal metabolic activity/uptake. Given the small subcentimeter sized, follow-up surveillance scan within 3-4 months is reasonable to check for interval change. 07/04/2024Nodular sclerosis Hodgkin lymphoma, intrapelvic lymph nodes (ICD-10 - C81.16) Patient diagnosed with Hodgkin Lymphoma in June 2023. Following with oncology, Dr. Atkinson. Last chemotherapy treatment on 02/11/24 with Brentuximab. Patient had PET scan done 05/27/24 with evidence for progression of bony disease and liver involvement. Patient did have follow up with Dr. Atkinson on 06/02. Biopsy confirmed progression. Patient has appointment with oncology on 07/07/24 and plan to start Nivolumab (Opdivo) plus AVD. Appetite has decreased since the last visit. Patient states his weight has been stable. Increased weakness. Continues to exercise daily (stationary bike and hand weights). He is able to ambulate with walker but states he fatigues easier than before and becomes SOB easier. Denies any recent falls. Denies SOB at rest. Admits to SOB with exertion. O2 saturation 88% on room air after walking 12 feet. Increased to 92% on room air after sitting. Patient to continue monitoring his O2 saturation and report any saturation staying less than 90% Patient denies pain currently. Occasional neck and back pain that is relieved by OTC Tylenol. Discussed protein snacks and supplements Encouraged patient to report any new or worsening symptoms. Continue to follow with Dr. Atkinson. Encouraged patient to call with any questions or concerns. 07/04/2024Neuropathy of both feet (ICD-10 - G57.93) Patient continues to have numbness to both feet; ongoing since starting Chemo, though voices some improvement since being off treatment. Denies any pins and needles sensation since starting on Gabapentin. States there is still numbness. Currently soaking feet and using OTC neuropaway cream. Also taking B complex vitamin and using footmassager. Patient does feel pressure with exam, but decreased sensation with light touch. Skin is warm. Capillary refill < 3 sec. Pedal pulses present. Is known side effect of the chemotherapy. Discussed wearing compression socks, massaging area, low impact exercise: stationary bicycle, calf stretches, ankle circles Encouraged to use walker when ambulating (at all times) Discussed proper footwear, monitor feet for any wounds; may set appointment with certified dental assistant. Patient is considering doing Shock Wave Therapy but has not decided yet. [facility]ICD-[facility] - Z51.5) Patient is alert and oriented and able to make decisions for himself. Discussed disease progression, quality of life, symptom management, and goals of care. Patient is currently staying with his sister while he is weaker and needing some assistance. He would like to get stronger and go back home. He would eventually like to get well enough to go back to work. He has a positive attitude and has family support. GOC: improve strength and mobility, maintain safety. Patient does have HCPOA document in chart. He wishes for code status to remain a Full Code and voices understanding of what this involves. No changes to ACP this visit. Emergency Contacts: Joana [facility] ([id number]), Caridad Gupta (sister), PPS 50%. Prognosis > 6 months. No further decline noted since the last visit. Patient is not hospice appropriate at this time. Did have Hospice conversation with the patient. He is not currently in a Hospice mindset and would like to continue with chemotherapy treatment. Next scheduled visit in 1 month (per patient request). 90 minutes total time spent reviewing patient's medial records, history, medications, face to face visit, physical exam, and documentation of visit. 09/20/2024[facility] for palliative care (ICD-10 - Z51.5) Patient is alert and oriented and able to make decisions for himself. Discussed disease progression, quality of life, symptom management, and goals of care. Patient is currently staying with his sister while he is weaker and needing some assistance. He would like to get stronger and go back home. He would eventually like to get well enough to go back to work. He has a positive attitude and has family support. GOC: improve strength and mobility, maintain safety. Patient does have HCPOA document in chart. He wishes for code status to remain a Full Code and voices understanding of what this involves. No changes to ACP this visit. Emergency Contacts: Joana [facility] ([id number]), Caridad Gupta (sister), PPS 50%. Prognosis > 6 months. No further decline noted since the last visit. Patient is not hospice appropriate at this time. Next scheduled visit in 1 month 85 minutes total time spent reviewing patient's medial records, history, medications, face to face visit, physical exam, and documentation of visit. 10[facility]18/2024[facility]ICD-10 - Z51.5) Patient is alert and oriented and able to make decisions for himself. Discussed disease progression, quality of life, symptom management, and goals of care. Patient is currently staying with his sister while he is weaker and needing some assistance. He would like to get stronger and go back home. He has a positive attitude and has family support. GOC: improve strength and mobility, maintain safety. Patient does have HCPOA document in chart. He wishes for code status to remain a Full Code and voices understanding of what this involves. No changes to ACP this visit. Emergency Contacts: Joana [facility] ([id number]), Caridad Gupta (sister), PPS 50%. Prognosis > 6 months. No further decline noted since the last visit. Patient is not hospice appropriate at this time. Next scheduled visit in 1 month 85 minutes total time spent reviewing patient's medial records, history, medications, face to face visit, physical exam, and documentation of visit. 11/15/2024[facility] (ICD-10 - Z51.5) Patient is alert and oriented and able to make decisions for himself. Discussed disease progression, quality of life, symptom management, and goals of care. Patient is currently staying with his sister while he is weaker and needing some assistance. He would like to get stronger and go back home. He has a positive attitude and has family support. GOC: improve strength and mobility; main goal is to return to his house. Patient does have HCPOA document in chart. He wishes for code status to remain a Full Code and voices understanding of what this involves. No changes to ACP this visit. Emergency Contacts: Joana [facility] ([id number]), Caridad Gupta (sister), PPS 50%. Prognosis > 6 months. Decline noted with continued neuropathy. Patient is not hospice appropriate at this time. Next scheduled visit in 1 month 75 minutes total time spent reviewing patient's medial records, history, medications, face to face visit, physical exam, and documentation of visit. 12/13/2024[facility] (ICD-10 - Z51.5) Patient is alert and oriented and able to make decisions for himself. Discussed disease progression, quality of life, symptom management, and goals of care. Patient is currently staying with his sister while he is weaker and needing some assistance. He would like to get stronger and go back home. He has a positive attitude and has family support. GOC: improve strength and mobility; main goal is to return to his house. Patient does have HCPOA document in chart. He wishes for code status to remain a Full Code and voices understanding of what this involves. No changes to ACP this visit. Emergency Contacts: Joana [facility] ([id number]), Caridad Gupta (sister), PPS 50%. Prognosis > 6 months. Patient is not hospice appropriate at this time. No decline notedsince the last visit. The patient is not in a hospice mindset and would like to continue with any aggressive treatments Next scheduled visit in 1 month 80 minutes total time spent reviewing patient's past medical history, medications, allergies, face to face visit, physical exam, and documentation of visit. 01/10/2025[facility] for palliative care (ICD-10 - Z51.5) Patient is alert and oriented and able to make decisions for himself. Discussed disease progression, quality of life, symptom management, and goals of care. Patient is currently staying with his sister while he is weaker and needing some assistance. He would like to get stronger and go back home. He has a positive attitude and has family support. GOC: improve strength and mobility; main goal is to return to his house. Patient does have HCPOA document in chart. He wishes for code status to remain a Full Code and voices understanding of what this involves. No changes to ACP this visit. Emergency Contacts: Joana [facility] ([id number]), Caridad Gupta (sister), PPS 50%. Prognosis > 6 months. No decline noted since the last visit. Patient is not hospice appropriate at this time. The patient is not in a hospice mindset and would like to continue with any aggressive treatments. Next scheduled visit in 1 month 80 minutes total time spent reviewing patient's past medical history, medications, allergies, face to face visit, physical exam, and documentation of visit. 02/07/2025[facility] for palliative care (ICD-10 - Z51.5) Patient is alert and oriented and able to make decisions for himself. Discussed disease progression, quality of life, symptom management, and goals of care. Patient is currently staying with his sister while he is weaker. He would like to get stronger and go back home. He has a positive attitude and has family support. GOC: improve strength and mobility; main goal is to return to his house. Patient does have HCPOA document in chart. He wishes for code status to remain a Full Code and voices understanding of what this involves. No changes to ACP this visit. Emergency Contacts: Joana Haywood ([id number]), Caridad Gupta (sister), PPS 60%. Prognosis > 6 months. No decline noted since the last visit. Patient is not hospice appropriate at this time. The patient is not in a hospice mindset and would like to continue with any aggressive treatments. Next scheduled visit in 1 month 75 minutes total time spent reviewing patient's past medical history, medications, allergies, face to face visit, physical exam, and documentation of visit. 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 Following with oncology, Dr. Atkinson. Last chemotherapy treatment (first round) on 02/11/24 with Brentuximab. Patient had PET scan done 05/27/24 with evidence for progression of bony disease and liver involvement. Biopsy confirmed progression. PET scan 09/09/24 (after 3 rounds) showed complete response Completed treatment with Opdivo/AVD every 2 weeks on 12/08/24. Appetite good. Weight has been stable. Denies any nausea or vomiting. Continued weakness (generalized). Doing exercises daily (walking, hand weights, automatic pedaling device). He is able to ambulate without aid in the home and with a 4 point cane outside of the home.Complains of occasional SOB with exertion. Monitors O2 saturation and says it stays in the 90's. Denies SOB at rest. Denies any recent falls. Continues to have neuropathy to both hands and feet; denies pain, just decreased sensation Sleeping good. Denies any pain Plan: Bone Marrow Biopsy 03/13/25, PET scan 03/17/[address] Atkinson in March Encouraged patient to report any new or worsening symptoms. Encouraged patient to call with any questions or concerns. 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 Following with oncology, Dr. Atkinson. Last chemotherapy treatment (first round) on 02/11/24 with Brentuximab. Patient had PET scan done 05/27/24 with evidence for progression of bony disease and liver involvement. Biopsy confirmed progression. PET scan 09/09/24 (after 3 rounds) showed complete response Completed treatment with Opdivo/AVD every 2 weeks on 12/08/24. Appetite good. Weight has been stable. Denies any nausea or vomiting. Continued weakness (generalized). Doing exercises daily (walking, hand weights, automatic pedaling device). He is able to ambulate without aid in the home and with a 4 point cane outside of the home.Sometimes using walker if feeling more weak. Complains of SOB with exertion. Monitors O2 saturationand if it drops, he says it goes right up with deep breaths. Denies SOB at rest. Taking frequent tali aks. Denies any recent falls. Continues to have neuropathy pain to both hands and feet Sleeping good. Denies any pain Plan: Bone Marrow Biopsy 03/13/25, PET scan 03/17/[address] Atkinson in March Encouraged patient to report any new or worsening symptoms. Encouraged patient to call with any questions or concerns. 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 Following with oncology, Dr. Atkinson. Last chemotherapy treatment (first round) on 02/11/24 with Brentuximab. Patient had PET scan done 05/27/24 with evidence for progression of bony disease and liver involvement. Biopsy confirmed progression. PET scan 09/09/24 (after 3 rounds) showed complete response Completed treatment with Opdivo/AVD every 2 weeks on 12/08/24. Appetite good. Weight has been stable (slight increase). No longer taking Remeron. Continued weakness (generalized). Doing exercises daily (walking, hand weights, automatic pedaling device). He is able to ambulate without aid in the home and with a 4 point cane outside of the home.Complains of SOB with exertion. Monitors O2 saturation and never drops below 90%. Denies SOB at rest. Denies any recent falls. Continues to have neuropathy pain to both hands and feet Sleeping good. Denies any nausea, vomiting, diarrhea, or constipation. Complains of muscle pain to arms and legs; improved with Motrin Plan: Bone Marrow Biopsy 03/13/25, PET scan 03/17/[address] Atkinson in March Encouraged patient to report any new or worsening symptoms. Encouraged patient to call with any questions or concerns. 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 Following with oncology, Dr. Atkinson. Last chemotherapy treatment (first round) on 02/11/24 with Brentuximab. Patient had PET scan done 05/27/24 with evidence for progression of bony disease and liver involvement. Patient did have follow up with Dr. Atkinson on 06/02. Biopsy confirmed progression. Current treatment with Opdivo/AVD every 2 weeks. Last treatment 11/10/24. PET scan 09/09/24 (after 3 rounds) showed complete response Appetite good. Weight has been stable (slight increase). Continued weakness. Doing exercises daily (walking, hand weights, automatic pedaling device). He isable to ambulate without aid in the home and with a 4 point cane outside of the home. Occasional SOB with exertion. Denies any recent falls. Denies SOB at rest. O2 saturation 93% at rest on room air. Patient does monitor throughout the day. Sleeping good. Did have some bone pain after injection, but denies pain this visit. Denies any nausea, vomiting, diarrhea, or constipation. Plan: Final Chemotherapy treatment scheduled for 12/08/24. Patient will then have repeat PET scan and bone marrow biopsy Encouraged patient to report any new or worsening symptoms. Continue to follow with Dr. Atkinson. Encouraged patient to call with any questions or concerns. 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 Following with oncology, Dr. Atkinson. Last chemotherapy treatment (first round) on 02/11/24 with Brentuximab. Patient had PET scan done 05/27/24 with evidence for progression of bony disease and liver involvement. Patient did have follow up with Dr. Atkinson on 06/02. Biopsy confirmed progression. Current treatment with Opdivo/AVD every 2 weeks. Last treatment 10/13/24 PET scan 09/09/24 (after 3 rounds) showed complete response Appetite good. Weight has been stable (slight increase). Continued weakness. Doing exercises daily (walking, hand weights, automatic pedaling device). He isable to ambulate without aid in the home and with a 4 point cane outside of the home. Occasional SOB with exertion. Denies any recent falls. Denies SOB at rest. O2 saturation 93% at rest on room air. Patient does monitor throughout the day. Sleeping good. Patient denies pain. Denies any nausea, vomiting, diarrhea, or constipation. Plan to continue with current treatment until november. At that time, will repeat PET scan andbone marrow biopsy Encouraged patient to report any new or worsening symptoms. Continue to follow with Dr. Atkinson. Encouraged patient to call with any questions or concerns. 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 Following with oncology, Dr. Atkinson. Last chemotherapy treatment (first round) on 02/11/24 with Brentuximab. Patient had PET scan done 05/27/24 with evidence for progression of bony disease and liver involvement. Patient did have follow up with Dr. Atkinson on 06/02. Biopsy confirmed progression. Current treatment with Opdivo/AVD every 2 weeks PET scan 09/09/24 (after 3 rounds) showed complete response Appetite good. Weight has been stable (slight increase). Continued weakness. Doing exercises daily (walking, hand weights, automatic pedaling device). He isable to ambulate with a 4 point cane (was using walker). Occasional SOB with exertion. Denies any recent falls. Denies SOB at rest. O2 saturation 93% at rest on room air. Patient does monitor throughout the day. Some difficulty sleeping when taking the steroids after treatment. Patient denies pain currently. Occasional neck and back pain that is relieved by OTC Tylenol. Denies any nausea, vomiting, diarrhea Plan to continue with current treatment until mid November. At that time, will repeat PET scan andbone marrow biopsy Encouraged patient to report any new or worsening symptoms. Continue to follow with Dr. Atkinson. Encouraged patient to call with any questions or concerns. 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 Following with oncology, Dr. Atkinson. Last chemotherapy treatment (first round) on 02/11/24 with Brentuximab. Patient had PET scan done 05/27/24 with evidence for progression of bony disease and liver involvement. Patient did have follow up with Dr. Atkinson on 06/02. Biopsy confirmed progression. Patient started immunotherapy 2 weeks ago Chemotherapy on 07/21/24 with Doxorubicin States he will get treatment every 2 weeks Appetite has improved since the last visit. Weight has been stable. Increased weakness. Continues to exercise daily (walking, hand weights, automatic pedaling device).He is able to ambulate with walker but states he fatigues easier than before and becomes SOB easier. Denies any recent falls. Denies SOB at rest. Admits to SOB with exertion. O2 saturation 94% at rest on room air. Patient does monitor throughout the day. Some difficulty sleeping when taking the steroids after treatment. Patient denies pain currently. Occasional neck and back pain that is relieved by OTC Tylenol. Denies any nausea, vomiting, diarrhea Discussed protein snacks and supplements Encouraged patient to report any new or worsening symptoms. Continue to follow with Dr. Atkinson. Encouraged patient to call with any questions or concerns. 07/04/2024Eczema (ICD-10 - L30.9) Patient complains of itching to both legs that started in the last 2 weeks. States he has had issues with this in the past. Told by elevator dispatcher that it was eczema. Currently using OTC eczema ointment and states it is helpful. Noted few scratch alcaraz to legs; nothing open. Make sure to wash legs Apply thick lotion; suggested Aveeno or Eucerin If keeping him awake, he could try Benadryl at bedtime Continue OTC allergy relief medicine 06/06/2024Neuropathy of both feet (ICD-10 - G57.93) Patient continues to have numbness to both feet; ongoing since starting Chemo, though voices some improvement since being off treatment. Denies any pins and needles sensation since starting on Gabapentin. States there is still numbness. Currently soaking feet and using OTC neuropaway cream. Also taking B complex vitamin and using footmassager. Patient does feel pressure with exam, but decreased sensation with light touch. Skin is warm. Capillary refill < 3 sec. Pedal pulses present. Is known side effect of the chemotherapy. Discussed wearing compression socks, massaging area, low impact exercise: stationary bicycle, calf stretches, ankle circles Encouraged to use walker when ambulating (at all times) Discussed proper footwear, monitor feet for any wounds; may set appointment with certified dental assistant. Patient is considering doing Shock Wave Therapy but has not decided yet. 05/09/2024Neuropathy of both feet (ICD-10 - G57.93) Patient continues to have numbness to both feet; ongoing since starting Chemo. Denies any pins andneedles sensation since starting on Gabapentin. States there is still numbness. Currently soaking feet and using OTC neuropaway cream. Also taking B complex vitamin and using footmassager. States that he has noticed some improvement. Patient does feel pressure with exam, but decreased sensation with light touch. Skin is warm. Capillary refill < 3 sec. Pedal pulses present. Is known side effect of the chemotherapy. Patient did have fall; states toes got stuck in carpet. Abrasions to knees (healed now). No other injuries. Discussed wearing compression socks, massaging area, low impact exercise: stationary bicycle, calf stretches, ankle circles Encouraged to use walker when ambulating (at all times) Discussed proper footwear, monitor feet for any wounds; may set appointment with certified dental assistant. 04/11/2024Neuropathy of both feet (ICD-10 - G57.93) Patient complains of numbness to both feet; ongoing since starting Chemo. He was started on Gabapentin and states there has been improvement in the pins and needles sensation. States there is stillnumbness. Currently soaking feet and using OTC neuropaway cream. States that he has noticed some improvement. Patient does feel pressure with exam, but decreased sensation with light touch. Skin is warm. Capillary refill < 3 sec. Pedal pulses present. Is known side effect of the chemotherapy. Discussed wearing compression socks, massaging area, low impact exercise: stationary bicycle, calf stretches, ankle circles Patient voices worry for risk of falls; patient to use walker when ambulating. Discussed proper footwear, monitor feet for any wounds; may set appointment with certified dental assistant. 03/15/2024Neuropathy of both feet (ICD-10 - G57.93) Patient complains of numbness to both feet; ongoing since starting Chemo. States his feet always feel cold to him. Occasionally gets pins and needles sensation. Patient does feel pressure with exam, but decreased sensation with light touch. Skin is warm. Capillary refill < 3 sec. Pedal pulses present. Is known side effect of the chemotherapy. Dr. Atkinson is aware PCP started him on B-complex vitamin Discussed wearing compression socks, massaging area, low impact exercise: stationary bicycle, calf stretches, ankle circles Patient voices worry for risk of falls; patient to use walker when ambulating. Discussed proper footwear, monitor feet for any wounds; may set appointment with certified dental assistant. Tylenol currently effective with pain management, if patient starts to have increasing pain, will discuss addition of medication. 03/15/2024Encounter for palliative care (ICD-10 - Z51.5) Patient is alert and oriented and able to make decisions for himself. Discussed patient's wishes, disease progression, goals of care, and quality of life. Patient is currently staying with his sisterwhile he is weaker and needing some assistance. He would like to get stronger and go back home. He would eventually like to get well enough to go back to work. He has a positive attitude and has family support. At this time, patient wishes for his code status to remain a Full Code. He states that he would like all life-sustaining interventions done but does not want to live on machines. No changes to ACP. PPS 50%. No decline since last visit. Patient is potentially hospice appropriate but that does not align with his current goals for treatment. Next scheduled visit in 2-4 weeks. 80 minutes total time spent reviewing patient's medial records, history, medications, face to face visit, physical exam, and documentation of visit. [facility] - Z51.5) Patient is alert and oriented and able to make decisions for himself. Discussed patient's wishes, disease progression, goals of care, and quality of life. Patient is currently staying with his sisterwhile he is weaker and needing some assistance. He would like to get stronger and go back home. He would eventually like to get well enough to go back to work. He has a positive attitude and has family support. GOC: improve strength and mobility, maintain safety. Patient does have HCPOA document inchart. He wishes for code status to remain a Full Code and voices understanding of what this involves. No changes to ACP. PPS 50%. Prognosis > 6 months. No decline since last visit. Patient is potentially hospice appropriate but that does not align with his current goals for treatment. Next scheduled visit in 2-4 weeks. 85 minutes total time spent reviewing patient's medial records, history, medications, face to face visit, physical exam, and documentation of visit. 05/09/2024Nosebleed (ICD-10 - R04.0) Patient did have another nosebleed which required ER visit. He was seen by ENT in the ER. Left narecauterized. Patient has not had any further bleeding. Eliquis decreased to 2.5mg BID Patient instructed to hold exercise for 2-3 weeks Follow up with ENT 06/06/2024[facility] for palliative care (ICD-10 - Z51.5) Patient is alert and oriented and able to make decisions for himself. Discussed disease progression, quality of life, symptom management, and goals of care. Patient is currently staying with his sister while he is weaker and needing some assistance. He would like to get stronger and go back home. He would eventually like to get well enough to go back to work. He has a positive attitude and has family support. GOC: improve strength and mobility, maintain safety. Patient does have HCPOA document in chart. He wishes for code status to remain a Full Code and voices understanding of what this involves. No changes to ACP this visit. Emergency Contacts: Joana Haywood ([id number]), Caridad Gupta (sister), PPS 50%. Prognosis > 6 months. No decline since last visit. Patient is not hospice appropriate at this time. Did have Hospice conversation with the patient. He is not currently in a Hospice mindset and would like to receive treatment if needed. Next scheduled visit in 1 month. 90 minutes total time spent reviewing patient's medial records, history, medications, face to face visit, physical exam, and documentation of visit. [facility] - [facility] Patient is alert and oriented and able to make decisions for himself. Discussed disease progression, quality of life, symptom management, and goals of care. Patient is currently staying with his sister while he is weaker and needing some assistance. He would like to get stronger and go back home. He would eventually like to get well enough to go back to work. He has a positive attitude and has family support. GOC: improve strength and mobility, maintain safety. Patient does have HCPOA document in chart. He wishes for code status to remain a Full Code and voices understanding of what this involves. No changes to ACP this visit. Emergency Contacts: Joana Haywood ([id number]), Caridad Gupta (sister), PPS 50%. Prognosis > 6 months. Decline noted with increased SOB, decreased appetite and + biopsyresults. Patient is not hospice appropriate at this time. Did have Hospice conversation with the patient. He is not currently in a Hospice mindset and would like to continue with chemotherapy treatment. Next scheduled visit in 2 weeks. 90 minutes total time spent reviewing patient's medial records, history, medications, face to face visit, physical exam, and documentation of visit. 05/09/2024Encounter for palliative care (ICD-10 - Z51.5) Patient is alert and oriented and able to make decisions for himself. Discussed patient's wishes, disease progression, goals of care, and quality of life. Patient is currently staying with his sisterwhile he is weaker and needing some assistance. He would like to get stronger and go back home. He would eventually like to get well enough to go back to work. He has a positive attitude and has family support. GOC: improve strength and mobility, maintain safety. Patient does have HCPOA document in chart. He wishes for code status to remain a Full Code and voices understanding of what this involves. No changes to ACP. Emergency Contacts: Joana Haywood ([id number]), Caridad Gupta (sister), PPS 50%. Prognosis > 6 months. No decline since last visit. Patient is potentially borderline hospice appropriate but that does not align with his current goals to continue treatment. Next scheduled visit in 1 month. 85 minutes total time spent reviewing patient's medial records, history, medications, face to face visit, physical exam, and documentation of visit. 03/15/[id number]/10/2025Other Plan Of Treatment Next Appt Details Provider Name:ANT MURPHY, 11/2024 11:30:00 AM, [id number] [place], [id number], Insurance Providers Payer Name Payer Address Payer Phone Subscriber Number Group Number Insured Name Patient Relationship to Insured Coverage Start Date Coverage End Date [employer] [place] [address] [place] [address] [id number] Viky Haywood - patient is the insuredMedical [place] Medicare SupplementPO [address] [place] [id number], ThomasSelf - patient is the insured Medical (General) History Medical History History ICD Code CAD (coronary artery disease) I25.10 Chronic anticoagulation Z79.01 CHF (congestive heart failure) I50.9 Factor V Leiden D68.51 Benign essential hypertension I10 Tubular adenoma of colon D12.6 Hodgkin lymphoma, unspecified Hodgkin ly mphoma type, unspecified body region C81.90 Nodular sclerosis Hodgkin lymphoma, intr apelvic lymph nodes C81.16 Surgical History Surgery Date(Month/Year) Colonoscopy 10/2019 CABG X5 11/2015 Cholecystectomy SplenectomyPacemaker/defibrillatorHospitalization History Reason Date(Month/Year) Norovirus 09/2023 SOB, new diagnosis [place] 06/2023
--- OUTSIDE RECORDS SUMMARY | 2025-03-06 08:00 | XMS_ITS | Clinical Summary ---
Author Organization [email or web address] tem Address [id number] [address] [place] [address] Care Team Providers Care Cover Cutter Name Role Phone Antoine Coulter MD Primary Care Provider [phone] Allergies No known active allergies Medications MedicationSigDispense [...] unspecified Hodgkin lymphoma type, unspecified body region (CMS-HCC)Take 1 capsule (300 mg total) by mouth 3 (three) times a day. 90 capsule 5Active gabapentin (NEURONTIN) 300 mg capsule Indications:Hodgkin lymphoma, unspecified Hodgkin lymphoma type, unspecified body region (CMS-HCC)TAKE 1 CAPSULE BY MOUTH THREE TIMES DAILY 90 capsule Discontinued(Reorder) Active Problems ProblemNoted DateDiagnosed DateHistory of eusfajvxewd37/10/2025Hyponatremia 10/03/20231959Emfppfzvojj15/06/9867Zwflurjczrscjr38/06/2024Enteritis due to Jvysrazeg51/06/2024Hodgkin lymphoma, unspecified Hodgkin lymphoma type, unspecified body wzpiyd2210/02/2023aroxysmal atrial mpxrhynmycab29/20/2024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07/22/2023Multifocal zhfqqgabj59/03/2024Mass of lung06/25/2023enign hypertensive cardiomyopathy with heart omlfmsk9907/12/2021 Overview (07/07/2023): Last Assessment & Plan: Currently b/p is stable 100/61, med adjustments for c/o hypotension- and new med list provided to pt- he voiced understanding Chronic systolic heart btjcygw4407/12/2021 Overview (07/07/2023): Last Assessment & Plan: [facility] II- currently euvolemic without exacerbation [...] function and electrolytes- HTN (hypertension)07/12/2021Factor V Leiden dwwezlzg32/01/2019 Overview (07/07/2023): Last Assessment & Plan: On Eliquis anticoagulation Cvjrdnldqjcybz65/18/2017 Overview (07/07/2023): Last Assessment & Plan: [place] heart class II Currently euvolemic without exacerbation Continue goal-directed medical therapy Patient admits low-sodium diet, fluid restriction and monitor his weight daily states has been verystable some fluctuation here and there between 3 pounds Coronary lyqgvbbpbebdqff00/18/2017 Overview (07/07/2023): Last Assessment & Plan: Coronary artery disease is Stable Continue GDMT- ASA, lipitor, coreg continue risk factor modifications- heart healthy diet, regular exercise as tolerated and continue all medications. 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 ([facility]-HCC) (Primary Dx)01/17/20259530Tsyozi60/18/2025Refill [facility] - Medical Oncology [address] [place] [phone] Wallace Atkinson MD Hodgkin lymphoma, unspecified Hodgkin lymphoma type, unspecified body region ([facility])12/09/2024 3:00 PM EDTInfusion [facility] - Medical Oncology [address] [place] [phone] 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)12/09/20248243Ddiphl75/11/2025 11:30 AM EDTInfusion [facility] - Medical Oncology [address] [place] [phone] 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)12/08/2024 11:15 AM EDTOffice Visit [facility] Medical Oncology [address] [place] [phone] Wallace Atkinson MD Hodgkin lymphoma, unspecified Hodgkin lymphoma type, unspecified body region (CMS-HCC) (Primary Dx); 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) 12/08/2024Documentation [facility] Medical Oncology [address] [place] [phone] Sonya Reyes RN 12/07/2024 1:00 PM EDTInfusion [facility] Medical Oncology [address] [place] [phone] 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); Hodgkin lymphoma, unspecified Hodgkin lymphoma type, unspecified body region ([facility]); Essential (primary) hypertension; Fatigue, unspecified type; Kxrzkww7412/05/2024Travelfrom Last 3 Months Immunizations ImmunizationAdministration DatesNext DueCovid-19, Mrna, Lnp-s, Pf,brenda- sucrose,30 Mcg/0.3ml Zycotmnd65/17/2023Influenza, High-dose, Quadrivalent 01/02/2023Influenza, Im Trivalent Wxqbznthsgls08/14/2019,03/17/2013Influenza, Injectable, quadrivalent (PF)01/10/2022,12/30/2020,01/21/2020Pneumococcal Conjugate 20-ppnjsx1301/13/2023RSV, bivalent, protein subunit RSVpreF, diluent reconstituted, 0.5 mL, PF01/13/2023Zoster Vaccine Lsgwbmythsx91/24/2021, 12/30/2020 Family History Medical HistoryRelationNameCommentsCoronary artery diseaseBrother 1CancerBrother 2Throat cancerBrother 2Coronary artery diseaseFatherCancerMotherColon cancer MotherRelationNameStatusCommentsBrother 1DeceasedBrother 2DeceasedFatherDeceased MotherDeceased Social History Tobacco UseTypesPacks/DayYears UsedDateSmoking Tobacco: NeverSmokeless Tobacco: Never Tobacco Cessation:Counseling Given: Not Answered Alcohol UseStandard Drinks/WeekCommentsNever0 (1 standard drink = 0.6 oz pure alcohol)[facility] UtilitiesAnswerDate RecordedIn the past 12 months has the [employer], gas, oil, or water [employer] threatened to shut off services in your [...] as a part of a household?No 4ChildcareAnswerDate ZypbezxrAundsoiwjXpjmthq96/13/2020EmploymentAnswer Date VmvjviejZgynievpkeWcpkgif84/13/2020Hunger ScreeningAnswerDate Recorded Within the past 12 months we worried whether our food would run out before we got money to buy more.Never True02/14/2024Within the past 12 months the food we bought just didn't last and we didn't have money to get more.Never True 4Purpose - LifeAnswerDate RecordedPurpose and direction in lifeUnknown 04/12/2020ex and Gender InformationValueDate RecordedSex Assigned at BirthNot on fileLegal DauAery8511/02/2014 11:39 AM EDTGender IdentityNot on fileSexual OrientationNot on file Last Filed Vital Signs Vital SignReadingTime TakenCommentsBlood Lvanjyyx86/5809 2:58 PM EDT Pzbkw783112/09/2024 2:58 PM UPPYqiejkqlqrf74.6 ??C (97.8 ??F)12/09/2024 2:58 PM EDTRespiratory Wqvv569812/09/2024 2:58 PM EDTOxygen Hallrsirgk26%12/09/2024 2:58 PM EDTInhaled Oxygen Concentration--Czrjmu814.7 kg (239 lb 9.6 oz)12/09/2024 2:58 PM NVKQkcbhl691 cm (6' 0.05 )12/09/2024 2:58 PM EDTBody Mass Index32.45 12/09/2024 2:58 PM EDT Plan of Treatment DateTypeDepartmentCare Team (Latest Contact Info)Gfjigqcleaw96/15/2025 10:00 AM ESTAppointment [facility] - Interventional Radiology [address] [place] [phone] Wallace Atkinson MD [address] [facility] [address] [place], [place] [id number] 03/17/2025 9:00 AM ESTAppointment [facility] - Pet Imaging [address] [place] [phone] 03/17/2025 9:30 AM ESTInfusion [facility] - Medical Oncology [address] [place] [phone] 04/06/2025 11:00 AM ESTOffice Visit [facility] - Medical Oncology [address] [place] [phone] Wallace Atkinson MD [address] [place] [address] 04/13/2025 2:00 PM ESTOffice Visit [facility] Physicians Family Medicine [address] [place] [address] [place] [address] Lynnette Abbott MD [address] [place] [address] Health MaintenanceDue DateLast DoneCommentsStatin Use: Hyaxwrjcbzhrje35/04/1958 Depression Vphpdzzqs72/04/1970Adult BMI Follow Up Plan01/01/1976DTaP,Tdap and Td Vaccines (1 - Tdap)1976COVID-19 Vaccine ( season)2024 01/05/2024, 01/13/2023, 01/24/2022, Additional history existsInfluenza Vaccine , 01/02/2023, 01/10/2022, Additional history existsFall Risk Pemxbdstg48/01/2025Tobacco Ztatnskbs76/dult BMI Opdddedoz77/02/2025Zoster (Shingles) CwnyenhSehspbfne79/24/2021, 1RSV ( or age 60+ yrs)Hloajgwls24/17/2023 Goals GoalPatient Goal TypeAssociated ProblemsRecent ProgressPatient-Stated?Author Return home when Deirdre Garcia, MADELIN Note: Evaluation of progress towards goal: Patients goal is to have a safe discharge home with self care and family support. Resume home care with [facility]. Medical Devices ImplantedTypeAreaManufacturerDevice IdentifierShelf Expiration DateModel / Serial / LotPort Powerport Clrvu Argd 8fr 1 Lum Ltwt Intmd Maria Guadalupe Pu - [id number] Implanted:Qty: 1 on 08/05/2023 by Jose Enrique Ashby MD at [facility] Peripheral [id number] / / [id number] Procedures Procedure NamePriorityDate/TimeAssociated DiagnosisCommentsTHYROID PROFILE INCLUDES TSH MS9RYWP4212/07/2024 1:12 PM EDT Hodgkin lymphoma, unspecified Hodgkin lymphoma type, unspecified body region (CMS-HCC) Essential (primary) hypertension Fatigue, unspecified type Malaise COMPREHENSIVE METABOLIC CGIQUENEB27/10/2025 1:12 PM EDT 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) CBC WITH AUTO XXIJWHTVDTDVHWIA78/10/2025 1:12 PM EDT 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 ([facility]) from Last 3 Months Results * Thyroid profile includes TSH FT4 (12/07/2024 1:12 PM EDT)ComponentValueRef RangeTest MethodAnalysis TimePerformed AtPathologist SignatureFREE T41.110.61 - 1.60 ng/dL12/07/2024 5:03 PM [facility]ALTSH3.30 0.49 - 4.67 uIU/mL12/07/2024 5:03 PM [facility] Specimen (Source)Anatomical Location / LateralityCollection Method / Volume Collection TimeReceived TimeBloodVenous blood / UnknownPort / Unknown 12/07/2024 1:12 PM EDT12/07/2024 1:12 PM EDT Narrative Authorizing ProviderResult TypeResult StatusChanatalya GALVAN BLOOD ORDERABLES Final ResultPerforming OrganizationAddressCity/State/ZIP CodePhone Number [facility] [address] [place] [address], * (ABNORMAL) CBC auto differential (12/07/2024 1:12 PM EDT)ComponentValueRef RangeTest MethodAnalysis TimePerformed AtPathologist QuuelhkmuMXQ90.1(H)4 - 11 x10E9/L12/07/2024 5:12 PM EDKNOX COMMUN[facility]OSPITALRBC Count4.09 (L)4.1 - 5.7 X10E12/L12/07/2024 5:12 PM [facility] Ftaeaudlrs35.113 - 17 g/dL12/07/2024 5:12 PM EDKNOX COMMUNITY HOSPITALHematocrit39.939 - 50 %12/07/2024 5:12 PM [facility]MCV9780 - 100 fL12/07/2024 5:12 PM EDKNOX COMMUNITY HOSPITALMCH31.927 - 34 pg12/07/2024 5:12 PM [facility]ITALMCHC32.832 - 36 g/dL12/07/2024 5:12 PM [facility]ITALRDW19.5(H)11.5 - 15 %12/07/2024 5:12 PM [facility]ITALPlatelet Xcnpj967255 - 450 X10E9/L12/07/2024 5:12 PM EDT [facility]MPV10.17 - 12 fL12/07/2024 5:12 PM EDT [facility]ITALMetamyelocytes %1%12/07/2024 5:12 PM EDT [facility]Comment:This is an appended report. These results have been appended to a previously preliminary verified report.Bands % 3%12/07/2024 5:12 PM [facility]Comment:This is an appended report. These results have been appended to a previously preliminary verified report.Neutrophils %51%12/07/2024 5:12 PM EDKNOX [facility]OSPITALComment:This is an appended report. These results have been appended to a previously preliminary verified report.Lymphocytes %36% 12/07/2024 5:12 PM EDKNO[facility]ITALComment:This is an appended report. These results have been appended to a previously preliminary verified report.Monocytes %8%12/07/2024 5:12 PM EDKNOX [facility]PITALComment:This is an appended report. These results have been appended to a previously preliminary verified report.Eosinophils %1%12/07/2024 5:12 PM [facility]Comment:This is an appended report. These results have been appended to a previously preliminary verified report. qEUT844 5:12 PM [facility]Comment:This is an appended report. These results have been appended to a previously preliminary verified report.Neutrophils Absolute (M)9.1(H)1.5 - 6.6 10*3/uL 12/07/2024 5:12 PM [facility]Comment:This is an appended report. These results have been appended to a previously preliminary verified report.Lymphocytes Absolute6.2(H)1.0 - 3.5 10*3/uL12/07/2024 5:12 PM [facility]Comment:This is an appended report. These results have been appended to a previously preliminary verified report. Monocytes Absolute1.4(H)0.0 - 0.9 10*3/uL12/07/2024 5:12 PM [facility]Comment:This is an appended report. These results have been appended to a previously preliminary verified report.Eosinophils Absolute0.20.0 - 0.4 *3/uL12/07/2024 5:12 PM [facility]Comment:This is an appended report. These results have been appended to a previously preliminary verified report.Differential TypeMANUAL EAEDXWUCDQOL41/10/2025 5:12 PM [facility]Comment: This is an appended report. These results have been appended to a previously preliminary verified report.Specimen (Source)Anatomical Location / Laterality Collection Method / VolumeCollection TimeReceived TimeBloodVenous blood / UnknownPort / Eqxamhb7012/07/2024 1:12 PM EDT12/07/2024 1:12 PM EDT Narrative Authorizing ProviderResult TypeResult StatusChang Jhonathan GALVAN BLOOD ORDERABLES Final ResultPerforming OrganizationAddressCity/State/ZIP CodePhone Number [facility] [address] [place] [address], [place] * (ABNORMAL) Comprehensive metabolic panel (12/07/2024 1:12 PM EDT)Component ValueRef RangeTest MethodAnalysis TimePerformed AtPathologist SignatureSODIUM 316054 - 146 mmol/L12/07/2024 4:44 PM [facility] POTASSIUM4.13.5 - 5.0 mmol/L12/07/2024 4:44 PM [facility]ITALCHLORIDE10398 - 109 mmol/L12/07/2024 4:44 PM EDKNOX COMMUNITY HOSPITALCARBON VEJIRBD0644 - 32 mmol/L12/07/2024 4:44 PM EDKNOX COMMUNITY HOSPITALANION GAP95 - 15 mmol/L12/07/2024 4:44 PM EDT [facility]ITALBLOOD UREA FZZBHVOX861 - 27 mg/dL12/07/2024 4:44 PM [facility]ITALCREATININE0.830.70 - 1.20 mg/dL 12/07/2024 4:44 PM [facility]ITALComment:METHOD TRACEABLE TO IDMS OAGPYXHYKBQUXBV095(H)65 - 99 mg/dL12/07/2024 4:44 PM EDT [facility]ITALCALCIUM8.98.5 - 10.5 mg/dL12/07/2024 4:44 PM [facility]ITALTOTAL PROTEIN6.56.0 - 8.0 g/dL 12/07/2024 4:44 PM [facility]PITALALBUMIN3.63.2 - 5.3 g/dL12/07/2024 4:44 PM [facility]ITALALKALINE ABBFCLQDPSB9171 - 130 U/L12/07/2024 4:44 PM [facility]ITALAST36<=41 U/L12/07/2024 4:44 PM [facility] ALT31<=40 U/L12/07/2024 4:44 PM [facility] BILIRUBIN,TOTAL0.50.3 - 1.2 mg/dL12/07/2024 4:44 PM [facility] HOSPITALEGFR Non-Race Dependent>90>=60 ml/min/1.73sq.m012/07/2024 4:44 PM EDKNOX COMMUNITY HOSPITALComment: eGFR not reported due to non-numeric value for Creatinine. Reported eGFR is based on the CKD-EPI 2020 equation that does not use a race coefficient. Specimen (Source)Anatomical Location / LateralityCollection Method / Volume Collection TimeReceived TimeBloodVenous blood / UnknownPort / Ngnrmmk1912/07/2024 1:12 PM EDT12/07/2024 1:12 PM EDT Narrative Authorizing ProviderResult TypeResult StatusChanatalya Atkinson MDLAB BLOOD ORDERABLES Final ResultPerforming OrganizationAddressCity/State/ZIP CodePhone Number [facility] [address] [facility] [place] [address], [place] from Last 3 Months Insurance Advance Directives TypeDate RecordedPatient RepresentativeExplanationLiving Will07/27/2023 12:01 PM * Full Code (Latest Code Status on File) Date ActivatedDate InactivatedComments10/02/2023 10:10 PM7 6:12 PM * Full Code Date ActivatedDate InactivatedComments06/25/2023 2:35 AM07/17/2023 11:36 AM Care Teams Team MemberRelationshipSpecialtyStart DateEnd Date Antoine Coulter MD [address] [place] [address] [facility] Vjqvqeog68/17/24
--- OUTSIDE RECORDS SUMMARY | 2025-03-06 08:00 | XMS_ITS | Encounter Summary ---
Author Organization [employer] tem Address [facility] [address] [place] [address] Care Team Providers Care Musical Instrument Maker Name Role Phone Antoine Coulter MD Primary Care Provider [phone] Reason for Visit * ReasonOnset DateCommentsMed Efqzyu6803/03/2025 Encounter Details DateTypeDepartmentCare Team (Latest Contact Info)Zmwgvslfxbw50/05/2025Refill [place] [facility] - Medical Oncology [address] [place] [phone] Wallace Atkinson MD [address] [facility] [address] [place], [place] [id number] Hodgkin lymphoma, unspecified Hodgkin lymphoma type, unspecified body region ([facility]) Social History Tobacco UseTypesPacks/DayYears UsedDateSmoking Tobacco: NeverSmokeless Tobacco: NeverAlcohol UseStandard Drinks/WeekCommentsNever0 (1 standard drink = 0.6 oz pure alcohol)[facility] UtilitiesAnswerDate RecordedIn the past 12 months has the electric, gas, oil, or water company threatened to shut off services in your home?No4AUDIT-CAnswerDate RecordedQ1: How often do you have a drink containing alcohol?Never03/08/2020Q2: How many drinks containing alcohol do you have on a typical day when you are drinking?Not asked03/08/2020Q3: How often do you have six or more drinks on one occasion?Never03/08/2020PRAPARE - TransportationAnswerDate RecordedIn the past 12 months, has lack of transportation kept you from medical appointments or from getting medications?No 10/02/2023In the past 12 months, has lack of transportation kept you from meetings, work, or from getting things needed for daily living?No10/02/2023 Housing InstabilityAnswerDate RecordedAre you worried or concerned that in the next two months you may not have stable housing that you own, rent or stay in as a part of a household?No4ChildcareAnswerDate RecordedChildcareUnknown 02/10/2020EmploymentAnswerDate UokrscswMrkrrwangrVhralba79/13/2020Hunger ScreeningAnswerDate RecordedWithin the past 12 months we worried whether our food would run out before we got money to buy more.Never True02/14/2024Within the past 12 months the food we bought just didn't last and we didn't have money to get more.Never True4Purpose - LifeAnswerDate RecordedPurpose and direction in lrtlLsfwory79/14/2021Sex and Gender InformationValueDate Recorded Sex Assigned at BirthNot on fileLegal JhkRiqp2211/02/2014 11:39 AM EDTGender IdentityNot on fileSexual OrientationNot on filedocumented as of this encounter Plan of Treatment DateTypeDepartmentCare Team (Latest Contact Info)Huolexhokqh86/15/2025 10:00 AM ESTAppointment [facility] [address] [place] [address] Wallace Atkinson MD [address] [facility] [address] [place] [address] 03/17/2025 9:00 AM ESTAppointment [facility] - Pet Imaging [address] [place] [phone] 03/17/2025 9:30 AM ESTInfusion [facility] - Medical Oncology [address] [place] [phone] 04/06/2025 11:00 AM ESTOffice Visit [facility] - Medical Oncology [address] [place] [phone] Wallace Atkinson MD [address] [address] [place] [address] 04/13/2025 2:00 PM ESTOffice Visit [facility] [address] [place] [phone] Lynnette Abbott MD [address] [place] [address] documented as of this encounter Goals GoalPatient Goal TypeAssociated ProblemsRecent ProgressPatient-Stated?Author Return home when Deirdre Garcia, MADELIN Note: Evaluation of progress towards goal: Patients goal is to have a safe discharge home with self care and family support. Resume home care with [facility]. documented as of this encounter Visit Diagnoses Diagnosis Hodgkin lymphoma, unspecified Hodgkin lymphoma type, unspecified body region (CMS-HCC) documented in this encounter Care Teams Team MemberRelationshipSpecialtyStart DateEnd Date Antoine Coulter MD [address] [place] [address] PCP - GeneralFamily Lbxdbybe74/17/24documented as of this encounter
--- NOTE | 2025-03-06 08:01 | CA_ITS ---
Patient Name: TORSTEN HARMON MR#: [id number] : 1955 Exam Date: 03/06/2025 Ordering Doctor: DR RYAN SILVA M.D. ECHOCARDIOGRAM REPORT PROCEDURE: CA ECHO DOPPLER COMPLETE INDICATIONS: Heart failure w/reduced ejection fraction COMPARISON: None. DESCRIPTION: COMPLETE ECHOCARDIOGRAM Real-time transthoracic echocardiography with 2D, M-mode, spectral and color flow Doppler performed. QUALITY: Technical quality was good. LEFT VENTRICLE: Normal chamber size. Moderate concentric left ventricular hypertrophy. Global left ventricular systolic function is moderately decreased. Visual estimation of left ventricular ejection fraction is 35-40 %. Abnormal septal motion due to pacemaker. Myocardial strain is abnormal measuring -11.3%. LV EF: DIASTOLIC: Grade I diastolic dysfunction. ATRIAL SEPTUM: Visually appears intact LEFT ATRIUM: Mild dilatation. RIGHT ATRIUM: Moderate dilatation. RIGHT VENTRICLE: Mild dilatation. Decreased right ventricular systolic function. Pacer wire present. TRICUSPID VALVE: Normal mobility and thickness. No stenosis with mild to moderate regurgitation. No evidence of pulmonary hypertension.The RVSP measures 24mmHg. MITRAL VALVE: Mildly thickened with normal mobility. No evidence of mitral valve stenosis. There is no mitral annular calcification. Mild mitral regurgitation. AORTIC VALVE: Normal trileaflet appearance. Thickened aortic valve. Normal leaflet mobility. No evidence of aortic valve stenosis. Mild aortic regurgitation. AORTIC ROOT: Normal diameter and appearance. The aortic root measures 3.4cm. The ascending aorta is mildly dilated measusring 3.8cm PULMONIC VALVE: Normal thickness and mobility. No stenosis. Trivial regurgitation. PERICARDIUM: No evidence of pericardial effusion. IVC: Collapes with inspirations. The IVC is normal in size measuring 1.7cm. PLEURA: CONCLUSION: Moderate concentric left ventricle hypertrophy Moderately reduced left ventricle systolic function, abnormal septal motion probably due to pacing, ejection fraction 35 to 40% Grade 1 left ventricle diastolic dysfunction Mildly dilated right ventricle with reduced systolic function Moderately dilated right atrium Mildly dilated left atrium Normal right-sided pressures Mild aortic insufficiency Mild mitral regurgitation Mild to moderate tricuspid regurgitation Mildly dilated ascending aorta 3.8 cm Pacemaker leads noted within the right cardiac chambers Adult Echocardiography Procedure Report Left Ventricle LVEDD (3.7 - 5.6 cm): 5.53 cm LVESD (2.2 - 4.0 cm): 4.41 cm LVIVS thickness (0.6 - 1.2 cm): 1.65 cm LVPW thickness (0.5 - 1.0 cm): 1.36 cm e': 0.10 m/s E - e': 2.55 LVOT Max Gradient: 2.00 mm[Hg] LVOT Area (cm2): 0.71 m/s Peak Velocity (LVOT): 0.71 m/s Mean Velocity (LVOT): 0.44 m/s LVOT Diameter 2.48 cm Left Ventricular Ejection Fraction: 47.76 % Left Atrium LA Volume Index (2D A2C): 41.66 ml/m2 Left Atrium Systolic Dimension: 5.08 cm Mitral Valve MV E to A Ratio: 0.35 MV Max Gradient: MV Mean Gradient: Mitral Valve A-Wave Peak Velocity: 0.75 m/s Mitral Valve E-Wave Peak Velocity: 0.26 m/s Cardiovascular Orifice Area: Right Ventricle RV Internal Diastolic Dimension: 4.15 cm Aorta AO Root Diam: 3.34 cm Ascending Ao Diam: 3.80 cm Aortic Valve AoV Area ([employer]): 3.21 cm2, 3.21 cm2 AoV Area (VTI): 3.39 cm2, 3.39 cm2 Deceleration [place]: 2.30 m/s2 Pressure Half-Time: 619.13 ms Peak Velocity(Antegrade Flow): 1.06 m/s Peak Gradient(Antegrade Flow): 4.51 mm[Hg] Mean Velocity(Antegrade Flow): 0.71 m/s Mean Gradient(Antegrade Flow): 2.37 mm[Hg] Velocity Time Integral: 20.15 cm Tricuspid Valve Peak Velocity (Regurgitant Flow): 2.03 m/s, 2.22 m/s, 2.29 m/s Peak Velocity: Pulmonic Valve Mean Gradient: Mean Velocity: Peak Velocity: 1.06 m/s Peak Gradient: 4.02 mm[Hg], 5.07 mm[Hg] Right Atrium Right Atrium Systolic Pressure: 70.60 ml, 70.60 ml Dictated by: Emil Nj MD on 03/06/2025 at 16:51 Approved by: Emil Nj MD on 03/06/2025 at 17:00
--- OUTSIDE RECORDS SUMMARY | 2025-03-06 08:02 | XMS_ITS | CCD ---
Author Organization [facility] Care Team Providers Care Flavor Extractor Name Role Phone BLAKE LUCAS AM Unavailable Unavailable ESPERANZA EATON Unavailable Unavailable SELF, REFERRED Unavailable Unavailable TORSTEN YEPEZ Unavailable Unavailable [place] Unavailable Unavailable BLAKE LUCAS AM Unavailable Unavailable [place] Unavailable Unavailable UNKNOWN, PROVIDER Unavailable Unavailable [place] Unavailable Unavailable MICHEL BURKETT Unavailable Unavailable [place] Unavailable Unavailable BRISEIDA HALL Unavailable Unavailable [place] Unavailable Unavailable TORSTEN YEPEZ Unavailable Unavailable SELF, [...] Attending Provider Antoine Hobbs Primary Care Provider STANFORD CANTU Attending Unavailable STANFORD CANTU Consulting [...] Unavailable Antoine Hobbs MD Primary Care Provider [phone] Antoine Hobbs MD Primary Care Provider Freedom Maciel Attending Unavailable Antoine Hobbs MD Primary Care Provider [phone] Wallace Prado MD Primary Care Provider No [...] [No Known Medication Allergies]Propensity to adverse reactions (disorder)[facility] Repository Medications Current Medications MedicationDrug Class(es)DatesSig (Normalized)Sig (Original)albuterol 0.833 mg/ml / ipratropium bromide 0.167 mg/ml inhalation solution (20 sources)Anticholinergic, beta2-Adrenergic AgonistStart: 11-89-2621ltgl 3 mL by inhalation every six hoursipratropium-albuteroL (DUONEB) 0.5 mg-3 mg(2.5 mg base)/3 mL nebulizer Indications: Mass of lung Inhale 3 mL by nebulization every 6 (six) hours while awake. 07/16/2023 Activeamiodarone hydrochloride 200 mg oral tablet (20 sources)AntiarrhythmicStart: 09-15-2023 End: 79-90-7650uytt 1 tablet by mouth in the morningamiodarone (PACERONE) 200 mg tablet Take 1 tablet (200 mg total) by mouth in the morning. 10/19/2023 Active Start: 09-15-2023 End: 59-33-6331xkezywfnec (PACERONE) 200 mg tablet 2 tablets (400 mg total) in the morning and 2 tablets (400 mg total) before bedtime. 09/15/2023 12/28/2023 Activeamoxicillin 875 mg / clavulanate 125 mg oral tablet (2 sources)Penicillin-class AntibacterialStart: 04-27-2024 End: 57-28-5596lxtw 1 tablet by mouth in the morningamoxicillin-clavulanate (Augmentin) 875-125 MG tablet Indications: Chronic rhinitis Take 1 tablet (875 mg) by mouth in the morning and 1 tablet (875 mg) before bedtime. Do all this for 14 days. 28 tablet 04/27/2024 05/11/2024 Activeapixaban 5 mg oral tablet (20 sources)Factor Xa InhibitorStart: 72-88-1619vaxj 0.5 tablet by mouth in the morning, then take 0.5 tablet by mouth at bedtimeapixaban (ELIQUIS) 5 mg tablet Take 0.5 tablets (2.5 mg total) by mouth in the morning and 0.5 tablets (2.5 mg total) before bedtime. 01/20/2020 ActiveStart: 99-28-7377uzjm 1 tablet by mouth in the morningapixaban (Eliquis) 5 MG tablet Take 5 mg by mouth in the morning and 5 mg in the evening. 10/13/2023 Activeatorvastatin 20 mg oral tablet (20 sources)HMG-CoA Reductase InhibitorStart: 45-07-3059bepb 1 tablet by mouth in the morningatorvastatin (LIPITOR) 20 mg tablet Take 1 tablet (20 mg total) by mouth in the morning. 01/20/2020ActiveB complex-vitamin C-folic acid (NEPHROCAP) 1 mg capsule (20 sources)take 1 capsule by mouth in the morningB complex-vitamin C-folic acid (NEPHROCAP) 1 mg capsule Take 1 capsule by mouth in the morning. 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 40 tablet 2 06/30/2024 ActiveStart: 02-11-2024 End: 85-48-429577 mg, intravenous, Once, On Joanne 02/11/24 at 1045, For 1 dose, May alter blood glucose or insulin requirements. Look-alike/sound-alike medication - verify indication for use.Start: 01-28-2024 End: 47-11-334117 mg, intravenous, Once, On Thu01/28/24 at 1030, For 1 dose, May alter blood glucose or insulin requirements. Look-alike/sound-alike medication - verify indication for use.Start: 01-15-2024 End: 33-78-293056 mg, intravenous, Once, On Thu01/15/24 at 1115, For 1 dose, May alter blood glucose or insulin requirements. 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 40 tablet 07/24/2023 08/27/2023 Discontinueddigoxin 0.25 mg oral tablet (20 sources)Cardiac GlycosideStart: 10-13-2023 End: 10-47-9290lesz 1 tablet by mouth once dailydigoxin (Lanoxin) [...] oral capsule (20 sources)Anti-epileptic AgentStart: 06-12-2024 End: 56-96-1453dypt 1 capsule by mouth three times dailygabapentin (NEURONTIN) 300 mg capsule Indications: Hodgkin lymphoma, unspecified Hodgkin lymphoma type, unspecified body region (CMS-HCC) TAKE 1 CAPSULE BY MOUTH THREE TIMES DAILY 90 capsule 1 12/15/2024 ActiveStart: 03-04-2024 End: 56-74-1819zzmy 1 capsule by mouth three times dailygabapentin [...] oral tablet (2 sources)Quinolone AntimicrobialStart: 08-23-2024 End: 75-96-9467usrl 1 tablet by mouth in the morninglevoFLOXacin (LEVAQUIN) 750 mg tablet Take 1 tablet (750 mg total) by mouth in the morning for 5 days. 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 30 g 09/10/2023 Activeloratadine 10 mg disintegrating oral tablet (20 sources)loratadine (CLARITIN REDITABS) 10 mg disintegrating tablet Dissolve 1 tablet (10 mg total) on tongue in the morning. Activemagnesium oxide 400 mg oral tablet (20 sources)Start: 17-52-1069wxzy 1 tablet by mouth in the morningmagnesium oxide (MAGOX) 400 mg tablet Take 1 tablet (400 mg total) by mouth in the morning. 30 tablet 6 10/12/2023 Wikjtt50 hr metoprolol succinate 25 mg extended release oral tablet (20 sources)beta-Adrenergic BlockerStart: 77-41-1826aklz 0.5 tablet by mouth every twenty-four hours in the morningmetoprolol succinate XL (TOPROL XL) 25 mg 24 hr tablet Take 0.5 tablets (12.5 mg total) by mouth inthe morning. 10/12/2023 ActiveStart: 10-12-2023 End: 86-14-3511sqlh 1 tablet by mouth once dailymetoprolol succinate XL (Toprol- XL) 25 MG 24 hr tablet Take 12.5 mg by mouth Daily 10/12/2023 01/04/2025 Active Start: 99-11-8697fshc 1 tablet by mouth every twenty-four hours in the morning metoprolol succinate XL (TOPROL XL) 25 mg 24 hr tablet Take 1 tablet (25 mg total) by mouth in the morning. 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 60 tablet 2 06/30/2024 ActiveStart: 07-28-2023 End: 58-40-4487ognm 3 tablets by mouth once as needed [...] meq extended release oral tablet (20 sources)Start: 39-60-8743mkhd 1 tablet by mouth once in the morningpotassium chloride (KLOR-CON M 20) 20 MEQ CR tablet Take 1 tablet (20 mEq total) by mouth in the morning and 1 tablet (20 mEq total) before bedtime. Plan to stop the potassium supplementation once diarrhea has resolved.. 60 tablet 6 10/12/2023 ActiveStart: 51-07-4135xejc 1 tablet by mouth in the morningpotassium chloride CR (Klor-Con M20) 20 MEQ ER tablet Take 20 mEq by mouth in the morning and 20 mEq in the evening. 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 60 tablet 2 09/24/2023 Suspended sildenafil 20 mg oral tablet (1 source)Phosphodiesterase 5 InhibitorStart: 61-34-8172nvbn 1 tablet by mouth once daily as neededsildenafil 20 mg oral tablet 20 mg = 1 tab(s), Oral, Daily, PRN erectile dysfunction, Refills(s) 0 Start Date: 10/24/19 Status: Ordered Completed/Discontinued Medications MedicationDrug Class(es)DatesSig (Normalized)Sig (Original)acetaminophen 500 mg oral tablet (20 sources)Start: 12-08-2024 End: 97-24-2846cesa 1000 mg by mouth once1,000 mg, oral, Once, On Joanne 12/08/24 at 1200, For 1 doseStart: 11-24-2024 End: 15-73-7532pbec 1000 mg by mouth once1,000 mg, oral, Once, On Joanne 11/24/24 at 0845, For 1 doseStart: 11-10-2024 End: 59-88-3343gkdl 1000 mg by mouth once1,000 mg, oral, Once, On Joanne 11/10/24 at 1000, For 1 doseStart: 10-27-2024 End: 40-96-4687dndw 1000 mg by mouth once1,000 mg, oral, Once, On Thu10/27/24 at 0930, For 1 doseStart: 10-13-2024 End: 79-86-3229sbcf 1000 mg by mouth once1,000 mg, oral, Once, On Thu10/13/24 at 0900, For 1 doseStart: 09-29-2024 End: 56-56-0268chky 1000 mg by mouth once1,000 mg, oral, Once, On Ojanne 09/29/24 at 0815, For 1 doseStart: 09-15-2024 End: 46-62-9664fldh 1000 mg by mouth once1,000 mg, oral, Once, On Joanne 09/15/24 at 1130, For 1 doseStart: 09-01-2024 End: 71-66-9048loji 1000 mg by mouth once1,000 mg, oral, Once, On Joanne 09/01/24 at 0915, For 1 doseStart: 08-04-2024 End: 67-64-7947hslh 1000 mg by mouth once1,000 mg, oral, Once, On Joanne 08/04/24 at 1015, For 1 doseStart: 07-21-2024 End: 78-56-6770qqbk 1000 mg by mouth once1,000 mg, oral, Once, On Joanne 07/21/24 at 1030, For 1 doseStart: 02-11-2024 End: 20-06-4201mlsc 1000 mg by mouth once1,000 mg, oral, Once, On Thu02/11/24 at 1045, For 1 doseStart: 01-28-2024 End: 67-85-8059nqlt 1000 mg by mouth once1,000 mg, oral, Once, On Thu01/28/24 at 1030, For 1 doseStart: 01-15-2024 End: 40-93-0227vrsz 1000 mg by mouth once1,000 mg, oral, Once, On Thu01/15/24 at 1115, For 1 doseStart: 2023 End: 71-02-4383qrfj 1000 mg by mouth once1,000 mg, oral, Once, On Joanne 12/31/23 at 1030, For 1 doseStart: 12-17-2023 End: 85-74-6527ujpt 1000 mg by mouth once1,000 mg, oral, Once, On Joanne 12/17/23 at 1030, For 1 doseStart: 12-03-2023 End: 65-01-7411jssh 1000 mg by mouth once1,000 mg, oral, Once, On Joanne 12/03/23 at 1045, For 1 doseStart: 11-19-2023 End: 57-63-6642zwwg 1000 mg by mouth once1,000 mg, oral, Once, On Joanne 11/19/23 at 1045, For 1 doseStart: 11-05-2023 End: 29-96-4909yyyz 1000 mg by mouth once1,000 mg, oral, Once, On Joanne 11/05/23 at 1015, For 1 doseStart: 10-22-2023 End: 47-11-8992lkre 1000 mg by mouth once1,000 mg, oral, Once, On Joanne 10/22/23 at 1030, For 1 doseStart: 96-25-2667gysu 2 tablets by mouth in the morning, then take 2 tablets by mouth at bedtimeacetaminophen (TYLENOL EXTRA STRENGTH) 500 mg tablet Take 2 tablets (1,000 mg total) by mouth in the morning and 2 tablets (1,000 mg total) before bedtime. 10/19/2023 ActiveStart: 09-24-2023 End: 58-41-3257rnjf 1000 mg by mouth once1,000 mg, oral, Once, On Joanne 09/24/23 at 1015, For 1 doseStart: 09-10-2023 End: 62-67-6207cgnx 1000 mg by mouth once1,000 mg, oral, Once, On Joanne 09/10/23 at 1045, For 1 doseStart: 08-27-2023 End: 37-54-9974aryp 1000 mg by mouth once1,000 mg, oral, Once, On Joanne 08/27/23 at 1230, For 1 doseStart: 08-13-2023 End: 99-31-8376tbxa 1000 mg by mouth once1,000 mg, oral, Once, On Joanne 08/13/23 at 1045, For 1 doseStart: 07-31-2023 End: 43-44-5177kpvt 1000 mg by mouth once1,000 mg, oral, Once, On Thu07/31/23 at 1115, For 1 dosealteplase (CATHFLO) injection 2 mg (1 source)Start: 08-16-2024 End: 87-56-4999moug 1 dose intravenously once as needed2 mg, [...] Inhibitor, Nonsteroidal Anti-inflammatory Drug Start: 07-11-2019 End: 20-27-8576qwsd 1 tablet by mouth in the morningaspirin 81 mg Take 1 tablet (81 mg total) by mouth in the morning. 07/11/2019 08/27/2023 Discontinued brentuximab vedotin (ADCETRIS) 120 mg in sodium chloride 0.9 % 100 mL chemo IVPB (13 sources)Start: 02-11-2024 End: 89-35-5352066 mg, intravenous, at 248 mL/hr, Administer over 30 Minutes, Once, On Joanne 02/11/24 at 1215, For 1dose, Administer brentuximab vedotin within approximately 1 hour after completion of AVD (DOXOrubici n/vinBLAStine/dacarbazine).Start: 01-28-2024 End: 46-52-0382991 mg, intravenous, at 248 mL/hr, Administer over 30 Minutes, Once, On Joanne 01/28/24 at 1200, For 1dose, Administer brentuximab vedotin within approximately 1 hour after completion of AVD (DOXOrubici n/vinBLAStine/dacarbazine).Start: 01-15-2024 End: 40-26-3128496 mg, intravenous, at 248 mL/hr, Administer over 30 Minutes, Once, On Thu01/15/24 at 1245, For 1dose, Administer brentuximab vedotin within approximately 1 hour after completion of AVD (DOXOrubici n/vinBLAStine/dacarbazine).Start: 12-17-2023 End: 95-50-2958275 mg, intravenous, at 248 mL/hr, Administer over 30 Minutes, Once, On Joanne 12/17/23 at 1200, For 1 dose, Administer brentuximab vedotin within approximately 1 hour after completion of AVD (DOXOrubicin /vinBLAStine/dacarbazine).Start: 12-03-2023 End: 96-44-2408468 mg, intravenous, at 248 mL/hr, Administer over 30 Minutes, Once, On Joanne 12/03/23 at 1100, For 1 dose, Administer brentuximab vedotin within approximately 1 hour after completion of AVD (DOXOrubicin/ vinBLAStine/dacarbazine).Start: 11-19-2023 End: 70-80-7215478 mg, intravenous, at 248 mL/hr, Administer over 30 Minutes, Once, On Thu11/19/23 at 1215, For 1 dose, Administer brentuximab vedotin within approximately 1 hour after completion of AVD (DOXOrubicin /vinBLAStine/dacarbazine).Start: 11-05-2023 End: 59-38-4663794 mg, intravenous, at 248 mL/hr, Administer over 30 Minutes, Once, On Joanne 11/05/23 at 1145, For 1 dose, Administer brentuximab vedotin within approximately 1 hour after completion of AVD (DOXOrubicin/ vinBLAStine/dacarbazine).Start: 10-22-2023 End: 43-64-0130106 mg, intravenous, at 248 mL/hr, Administer over 30 Minutes, Once, On Joanne 10/22/23 at 1200, For 1 dose, Administer brentuximab vedotin within approximately 1 hour after completion of AVD (DOXOrubicin /vinBLAStine/dacarbazine).Start: 09-24-2023 End: 20-86-3990187 mg, intravenous, at 248 mL/hr, Administer over 30 Minutes, Once, On Joanne 09/24/23 at 1145, For 1 dose, Administer brentuximab vedotin within approximately 1 hour after completion of AVD (DOXOrubicin /vinBLAStine/dacarbazine).Start: 09-10-2023 End: 94-80-1448399 mg, intravenous, at 248 mL/hr, Administer over 30 Minutes, Once, On Joanne 09/10/23 at 1215, For 1 dose, Administer brentuximab vedotin within approximately 1 hour after completion of AVD (DOXOrubicin /vinBLAStine/dacarbazine).Start: 08-27-2023 End: 08-66-2885015 mg, intravenous, at 248 mL/hr, Administer over 30 Minutes, Once, On Joanne 08/27/23 at 1400, For 1 dose, Administer brentuximab vedotin within approximately 1 hour after completion of AVD (DOXOrubicin /vinBLAStine/dacarbazine).Start: 08-13-2023 End: 86-27-0252730 mg, intravenous, at 248 mL/hr, Administer over 30 Minutes, Once, On Joanne 08/13/23 at 1215, For 1 dose, Administer brentuximab vedotin within approximately 1 hour after completion of AVD (DOXOrubicin /vinBLAStine/dacarbazine).Start: 07-31-2023 End: 06-60-7839757 mg, intravenous, at 248 mL/hr, Administer over 30 Minutes, Once, On Thu07/31/23 at 1245, For 1 dose, Administer brentuximab vedotin within approximately 1 hour after completion of AVD (DOXOrubicin/ vinBLAStine/dacarbazine).brentuximab vedotin (ADCETRIS) 120 mg in sodium chloride 0.9 % 150 mL chemo IVPB (1 source)Start: 2023 End: 27-34-4385862 mg, intravenous, at 348 mL/hr, Administer over 30 Minutes, Once, On Joanne 12/31/23 at 1200, For 1 dose, Administer brentuximab vedotin within approximately 1 hour after completion of AVD (DOXOrubicin /vinBLAStine/dacarbazine).carvedilol 3.125 mg oral tablet (20 sources)alpha-Adrenergic Mary, beta-Adrenergic BlockerStart: 07-16-2023 End: 31-99-3115uugtglrwrK (COREG) 3.125 mg tablet HOLD until outpatient follow- up with Cardiology 07/16/2023 09/10/2023 DiscontinuedStart: 95-16-6381uycg 2 tablets by mouth once dailyCoreg 3.125 mg Tab 6.25 mg = 2 tab(s), Oral, Daily, Refills(s) 0 Start Date: 10/24/19 Status: Ordered End: 20-84-4153uyqj 1 tablet by mouth in the morning, then take 1 tablet by mouth at mealtimecarvediloL (COREG) 3.125 mg tablet Take 1 tablet (3.125 mg total) by mouth in the morning and 1 tablet (3.125 mg total) in the evening. Take with meals. 07/14/2023 Discontinueddacarbazine (DTIC) 855 mg in sodium chloride 0.9 % (PVC) 500 mL chemo IVPB (3 sources)Start: 10-27-2024 End: 88-55-8135912 mg (375 mg/m2 2.28 m2 Treatment Plan BSA from Recorded weight), intravenous, at 1,171 mL/hr, Administer over 30 Minutes, Once, On Joanne 10/27/24 at 1030, For 1 dose, Too rapid infusion may cause severe venous irritation. Do NOT use if solution turns red or pink.Start: 09-29-2024 End: 38-20-0323612 mg (375 mg/m2 2.28 m2 Treatment Plan BSA from Recorded weight), intravenous, at 1,171 mL/hr, Administer over 30 Minutes, Once, On Joanne 09/29/24 at 0915, For 1 dose, Too rapid infusion may cause severe venous irritation. Do NOT use if solution turns red or pink.Start: 09-01-2024 End: 06-75-8697630 mg (375 mg/m2 2.28 m2 Treatment Plan BSA from Recorded weight), intravenous, at 1,171 mL/hr, Administer over 30 Minutes, Once, On Joanne 09/01/24 at 1015, For 1 dose, Too rapid infusion may cause severe venous irritation. Do NOT use if solution turns red or pink.dacarbazine (DTIC) 855 mg in sodium chloride 0.9 % 500 mL chemo IVPB (7 sources)Start: 12-08-2024 End: 97-64-1394499 mg (375 mg/m2 2.28 m2 Treatment Plan BSA from Recorded weight), intravenous, at 1,171 mL/hr, Administer over 30 Minutes, Once, On Joanne 12/08/24 at 1300, For 1 dose, Too rapid infusion may cause severe venous irritation. Do NOT use if solution turns red or pink.Start: 11-24-2024 End: 47-61-9169956 mg (375 mg/m2 2.28 m2 Treatment Plan BSA from Recorded weight), intravenous, at 1,171 mL/hr, Administer over 30 Minutes, Once, On Joanne 11/24/24 at 0945, For 1 dose, Too rapid infusion may cause severe venous irritation. Do NOT use if solution turns red or pink.Start: 11-10-2024 End: 10-20-7964333 mg (375 mg/m2 2.28 m2 Treatment Plan BSA from Recorded weight), intravenous, at 1,171 mL/hr, Administer over 30 Minutes, Once, On Joanne 11/10/24 at 1100, For 1 dose, Too rapid infusion may cause severe venous irritation. Do NOT use if solution turns red or pink.Start: 10-13-2024 End: 24-57-2066672 mg (375 mg/m2 2.28 m2 Treatment Plan BSA from Recorded weight), intravenous, at 1,171 mL/hr, Administer over 30 Minutes, Once, On Joanne 10/13/24 at 1000, For 1 dose, Too rapid infusion may cause severe venous irritation. Do NOT use if solution turns red or pink.Start: 09-15-2024 End: 08-39-1765596 mg (375 mg/m2 2.28 m2 Treatment Plan BSA from Recorded weight), intravenous, at 1,171 mL/hr, Administer over 30 Minutes, Once, On Joanne 09/15/24 at 1230, For 1 dose, Too rapid infusion may cause severe venous irritation. Do NOT use if solution turns red or pink.Start: 08-04-2024 End: 08-80-8347328 mg (375 mg/m2 2.28 m2 Treatment Plan [...] 50 mL IVPB (4 sources)Start: 10-27-2024 End: 90-97-2059unrksrvrdle, at 232 mL/hr, Administer over 15 Minutes, Once, On Joanne 10/27/24 at 0930, For 1 doseStart: 09-29-2024 End: 99-56-4059uxafixzbecl, at 232 mL/hr, Administer over 15 Minutes, Once, On Joanne 09/29/24 at 0815, For 1 doseStart: 09-15-2024 End: 85-88-4869jvkwmrratfq, at 232 mL/hr, Administer over 15 Minutes, Once, On Joanne 09/15/24 at 1130, For 1 doseStart: 09-01-2024 End: 63-64-4790qsroyuhcmre, at 232 mL/hr, Administer over 15 Minutes, Once, On Joanne 09/01/24 at 0915, For 1 dosedexAMETHasone (DECADRON) 12 mg, palonosetron (ALOXI) 0.25 mg in sodium chloride 0.9 % 50 mL IVPB (18 sources)Start: 12-08-2024 End: 78-34-1143tyjbciyskki, at 232 mL/hr, Administer over 15 Minutes, Once, On [facility] 12/08/24 at 1200, For 1 doseStart: 11-24-2024 End: 63-31-2010fyxzlsvexjp, at 232 mL/hr, Administer over 15 Minutes, Once, On [facility] 11/24/24 at 0845, For 1 doseStart: 11-10-2024 End: 10-63-9901pvntnmsgkxx, at 232 mL/hr, Administer over 15 Minutes, Once, On Joanne 11/10/24 at 1000, For 1 doseStart: 10-13-2024 End: 97-37-0445uvjtxwhxtmx, at 232 mL/hr, Administer over 15 Minutes, Once, On [facility] 10/13/24 at 0900, For 1 doseStart: 08-04-2024 End: 31-46-9385yhkcyoctwxg, at 232 mL/hr, Administer over 15 Minutes, Once, On [facility] 08/04/24 at 1015, For 1 doseStart: 07-21-2024 End: 97-30-5097gfphtfjtzoo, at 232 mL/hr, Administer over 15 Minutes, Once, On [facility] 07/21/24 at 1030, For 1 doseStart: 07-07-2024 End: 91-33-2930lzazazvgnug, at 232 mL/hr, Administer over 15 Minutes, Once, On [facility] 07/07/24 at 0945, For 1 doseStart: 2023 End: 49-83-0282jrgmsdjndsp, at 232 mL/hr, Administer over 15 Minutes, Once, On [facility] 12/31/23 at 1030, For 1 doseStart: 12-17-2023 End: 30-39-2484juoorvgokdx, at 232 mL/hr, Administer over 15 Minutes, Once, On [facility] 12/17/23 at 1030, For 1 doseStart: 12-03-2023 End: 67-52-7109mapineamepr, at 232 mL/hr, Administer over 15 Minutes, Once, On [facility] 12/03/23 at 1045, For 1 doseStart: 11-19-2023 End: 52-39-0091aznrgxddpqy, at 232 mL/hr, Administer over 15 Minutes, Once, On Joanne 11/19/23 at 1045, For 1 doseStart: 11-05-2023 End: 16-78-4212wkcsznpshej, at 232 mL/hr, Administer over 15 Minutes, Once, On Joanne 11/05/23 at 1015, For 1 doseStart: 10-22-2023 End: 70-68-2010cbllmjaaptz, at 232 mL/hr, Administer over 15 Minutes, Once, On Joanne 10/22/23 at 1030, For 1 doseStart: 09-24-2023 End: 94-50-5175wclngauapia, at 232 mL/hr, Administer over 15 Minutes, Once, On [place] 09/24/23 at 1015, For 1 doseStart: 09-10-2023 End: 61-34-1935illjhxeillo, at 232 mL/hr, Administer over 15 Minutes, Once, On Joanne 09/10/23 at 1045, For 1 doseStart: 08-27-2023 End: 23-48-3441ebuvwjtnzqf, at 232 mL/hr, Administer over 15 Minutes, Once, On Joanne 08/27/23 at 1230, For 1 doseStart: 08-13-2023 End: 66-54-0328ngtxhngvxzu, at 232 mL/hr, Administer over 15 Minutes, Once, On Thu08/13/23 at 1045, For 1 doseStart: 07-31-2023 End: 98-64-9691nrsrsrpgvcy, at 232 mL/hr, Administer over 15 Minutes, Once, On Thu07/31/23 at 1115, For 1 dosediphenhydrAMINE hydrochloride 25 mg oral capsule (20 sources)Histamine-1 Receptor AntagonistStart: 12-08-2024 End: 40-96-9358kqzk 25 mg by mouth once25 mg, oral, Once, On Joanne 12/08/24 at 1200, For 1 dose, Look-alike/sound-alike medication - verify indication for use. Start: 11-24-2024 End: 28-08-5199trpb 25 mg by mouth once25 mg, oral, Once, On Joanne 11/24/24 at 0845, For 1 dose, Look-alike/sound-alike medication - verify indication for use. Start: 11-10-2024 End: 89-71-7148szqr 25 mg by mouth once25 mg, oral, Once, On Joanne 11/10/24 at 1000, For 1 dose, Look-alike/sound-alike medication - verify indication for use. Start: 10-27-2024 End: 75-59-3890nfke 25 mg by mouth once25 mg, oral, Once, On Joanne 10/27/24 at 0930, For 1 dose, Look-alike/sound-alike medication - verify indication for use. Start: 10-13-2024 End: 62-36-7594mhau 25 mg by mouth once25 mg, oral, Once, On Joanne 10/13/24 at 0900, For 1 dose, Look-alike/sound-alike medication - verify indication for use. Start: 09-29-2024 End: 02-55-6561hfbb 25 mg by mouth once25 mg, oral, Once, On Joanne 09/29/24 at 0815, For 1 dose, Look-alike/sound-alike medication - verify indication for use.Start: 09-15-2024 End: 31-71-8378cpgn 25 mg by mouth once25 mg, oral, Once, On Joanne 09/15/24 at 1130, For 1 dose, Look-alike/sound-alike medication - verify indication for use. Start: 09-01-2024 End: 61-57-3626njos 25 mg by mouth once25 mg, oral, Once, On Joanne 09/01/24 at 0915, For 1 dose, Look-alike/sound-alike medication - verify indication for use.Start: 08-04-2024 End: 87-52-1321rfwd 25 mg by mouth once25 mg, oral, Once, On Joanne 08/04/24 at 1015, For 1 dose, Look-alike/sound-alike medication - verify indication for use.Start: 07-21-2024 End: 66-29-8143uwuh 25 mg by mouth once25 mg, oral, Once, On Joanne 07/21/24 at 1030, For 1 dose, Look-alike/sound-alike medication - verify indication for use. Start: 07-07-2024 End: 53-67-0690mabt 25 mg by mouth once25 mg, oral, Once, On Joanne 07/07/24 at 0945, For 1 dose, Look-alike/sound-alike medication - verify indication for use. Start: 02-11-2024 End: 89-72-4190nwrt 25 mg intravenously once25 mg, intravenous, Once, On Joanne 02/11/24 at 1045, For 1 dose, Look-alike/sound-alike medication - verify indication for use., Intravenous Specific Administration: IV PushStart: 01-28-2024 End: 72-26-7644hdza 25 mg intravenously once25 mg, intravenous, Once, On Joanne 01/28/24 at 1030, For 1 dose, Look-alike/sound-alike medication - verify indication for use., Intravenous Specific Administration: IV PushStart: 01-15-2024 End: 76-42-6217iwic 25 mg intravenously once25 mg, intravenous, Once, On Thu01/15/24 at 1115, For 1 dose, Look-alike/sound-alike medication - verify indication for use., Intravenous Specific Administration: IV PushStart: 2023 End: 36-39-9180xwnn 25 mg intravenously once25 mg, intravenous, Once, On Joanne 12/31/23 at 1030, For 1 dose, Look-alike/sound-alike medication - verify indication for use., Intravenous Specific Administration: IV PushStart: 12-17-2023 End: 91-75-4672dpal 25 mg intravenously once25 mg, intravenous, Once, On Joanne 12/17/23 at 1030, For 1 dose, Look-alike/sound-alike medication - verify indication for use., Intravenous Specific Administration: IV PushStart: 12-03-2023 End: 94-99-0778foik 25 mg intravenously once25 mg, intravenous, Once, On Joanne 12/03/23 at 1045, For 1 dose, Look-alike/sound-alike medication - verify indication for use., Intravenous Specific Administration: IV PushStart: 11-19-2023 End: 46-32-3895ocje 25 mg intravenously once25 mg, intravenous, Once, On Joanne 11/19/23 at 1045, For 1 dose, Look-alike/sound-alike medication - verify indication for use., Intravenous Specific Administration: IV PushStart: 11-05-2023 End: 38-09-4614obkz 25 mg intravenously once25 mg, intravenous, Once, On Joanne 11/05/23 at 1015, For 1 dose, Look-alike/sound-alike medication - verify indication for use., Intravenous Specific Administration: IV PushStart: 10-22-2023 End: 55-13-0465rnvd 25 mg intravenously once25 mg, intravenous, Once, On Joanne 10/22/23 at 1030, For 1 dose, Look-alike/sound-alike medication - verify indication for use., Intravenous Specific Administration: IV PushStart: 09-24-2023 End: 58-46-8408swdx 25 mg intravenously once25 mg, intravenous, Once, On Joanne 09/24/23 at 1015, For 1 dose, Look-alike/sound-alike medication - verify indication for use., Intravenous Specific Administration: IV PushStart: 09-10-2023 End: 14-60-7865sxpz 25 mg by mouth once25 mg, oral, Once, On Joanne 09/10/23 at 1045, For 1 dose, Look-alike/sound-alike medication - verify indication for use. Start: 08-27-2023 End: 72-15-3124puyn 25 mg by mouth once25 mg, oral, Once, On Joanne 08/27/23 at 1230, For 1 dose, Look-alike/sound-alike medication - verify indication for use. Start: 08-13-2023 End: 86-48-9954xiwu 25 mg by mouth once25 mg, oral, Once, On Joanne 08/13/23 at 1045, For 1 dose, Look-alike/sound-alike medication - verify indication for use. Start: 07-31-2023 End: 75-80-4675xqrf 25 mg by mouth once25 mg, oral, [...] May have multiple syringes. Vesicant.Start: 11-24-2024 End: 67-60-959326 mg (25 mg/m2 2.28 m2 Treatment Plan BSA from Recorded weight), intravenous, Once, On Joanne 11/24/24at 0915, For 1 dose, Look-alike/sound-alike medication - verify indication for use. IV push over 3-10 min. May have multiple syringes. Vesicant.Start: 11-10-2024 End: 52-02-461248 mg (25 mg/m2 2.28 m2 Treatment Plan BSA from Recorded weight), intravenous, Once, On Joanne 11/10/24at 1030, For 1 dose, Look-alike/sound-alike medication - verify indication for use. IV push over 3-10 min. May have multiple syringes. Vesicant.Start: 10-27-2024 End: 48-24-237949 mg (25 mg/m2 2.28 m2 Treatment Plan BSA from Recorded weight), intravenous, Once, On Joanne 10/27/24at 1000, For 1 dose, Look-alike/sound-alike medication - verify indication for use. IV push over 3-10 min. May have multiple syringes. Vesicant.Start: 10-13-2024 End: 61-64-481528 mg (25 mg/m2 2.28 m2 Treatment Plan BSA from Recorded weight), intravenous, Once, On Joanne 10/13/24at 0930, For 1 dose, Look-alike/sound-alike medication - verify indication for use. IV push over 3-10 min. May have multiple syringes. Vesicant.Start: 09-29-2024 End: 88-56-778152 mg (25 mg/m2 2.28 m2 Treatment Plan BSA from Recorded weight), intravenous, Once, On Joanne 09/29/24 at 0845, For 1 dose, Look-alike/sound-alike medication - verify indication for use. IV push over 3-10 min. May have multiple syringes. Vesicant.Start: 09-15-2024 End: 15-46-112880 mg (25 mg/m2 2.28 m2 Treatment Plan BSA from Recorded weight), intravenous, Once, On Joanne 09/15/24at 1200, For 1 dose, Look-alike/sound-alike medication - verify indication for use. IV push over 3-10 min. May have multiple syringes. Vesicant.Start: 09-01-2024 End: 70-45-787289 mg (25 mg/m2 2.28 m2 Treatment Plan BSA from Recorded weight), intravenous, Once, On Joanne 09/01/24 at 0945, For 1 dose, Look-alike/sound-alike medication - verify indication for use. IV push over 3-10 min. May have multiple syringes. Vesicant.Start: 08-04-2024 End: 20-37-632834 mg (25 mg/m2 2.28 m2 Treatment Plan BSA from Recorded weight), intravenous, Once, On Joanne 08/04/24 at 1045, For 1 dose, Look-alike/sound-alike medication - verify indication for use. IV push over 3-10 min. May have multiple syringes. Vesicant.Start: 07-21-2024 End: 76-37-292955 mg (25 mg/m2 2.28 m2 Treatment Plan BSA from Recorded weight), intravenous, Once, On Joanne 07/21/24at 1100, For 1 dose, Look-alike/sound-alike medication - verify indication for use. IV push over 3-10 min. May have multiple syringes. Vesicant.Start: 09-24-2023 End: 33-03-344391 mg (rounded from 57.25 mg = 25 mg/m2 2.29 m2 Treatment Plan BSA from Recorded weight), intravenous, Once, On Joanne 09/24/23 at 1045, For 1 dose, Look-alike/sound-alike medication - verify indication for use. IV push over 3-10 min. May have multiple syringes. Vesicant.heparin (5 sources)Unfractionated Heparin, Anti-coagulantStart: 09-24-2023 End: 36-15-6028564 Units, intravenous, As needed, deaccessing, Starting on Joanne 09/24/23 at 1248, Heplock following NS flush. Look-alike/sound-alike medication - verify indication for use.Start: 09-10-2023 End: 98-37-6105586 Units, intravenous, As needed, deaccessing, Starting on Joanne 09/10/23 at 1037, Heplock following NS flush. Look-alike/sound-alike medication - verify indication for use.Start: 08-27-2023 End: 59-52-8215206 Units, intravenous, As needed, deaccessing, Starting on Joanne 08/27/23 at 1226, Heplock following NS flush. Look-alike/sound-alike medication - verify indication for use.Start: 08-13-2023 End: 43-61-9835202 Units, intravenous, As needed, deaccessing, Starting on Joanne 08/13/23 at 1431, Heplock following NS flush. Look-alike/sound-alike medication - verify indication for use.Start: 08-07-2023 End: 07-14-1765550 Units, intravenous, As needed, deaccessing, Starting on Thu08/07/23 at 1015, Heplock following NS flush. Look-alike/sound-alike medication - verify indication for use.jrfyzdbbm-slhujxawvoywevu-yloaluzh-magnesium hydroxide-simethicone CMPD (MAGIC MOUTHWASH) (20 sources)Start: 10-14-2023 End: 45-13-0162fuvb 5 mL by mouth four times daily as needed dgrdxcrow-uhnywbenppkzyvt-fbomuyyq-magnesium hydroxide-simethicone CMPD (MAGIC MOUTHWASH) Swish andspit 5 mL 4 (four) times a day as needed for mouth/gum irritation. 250 mL 1 10/14/2023 09/16/2024 DiscontinuedStart: 19-17-1087fmzf 5 mL by mouth four times daily as needed mbrianile-hjvhjpcgsooeyxs-isqyogkj-magnesium hydroxide-simethicone CMPD (MAGIC MOUTHWASH) Swish andspit 5 mL 4 (four) times a day as needed for mouth/gum irritation. 250 mL 1 10/14/2023 Activemagnesium hydroxide 80 mg/ml oral suspension (20 sources)Start: 39-69-7219cbaw 15 mL by mouth once daily as needed for constipationmagnesium hydroxide (DULCOLAX, MAGNESIUM HYDROXIDE,) 400 mg/5 mL suspension Take 15 mL by mouth daily as needed (constipation). 15 mL 07/07/2023 Suspendedmelatonin 3 mg oral capsule (20 sources) End: 34-17-0789gwob 1 capsule by mouth once daily as neededmelatonin 3 mg capsule Take 3 mg by mouth nightly as needed. 09/16/2024 Discontinuednivolumab (OPDIVO) 240 mg in sodium chloride 0.9 % 100 mL chemo IVPB (11 sources)Start: 12-08-2024 End: 00-72-3147079 mg, intravenous, at 124 mL/hr, Administer over 60 Minutes, Once, On [facility] 12/08/24 at 1200, For 1 dose, Administer using 0.2 to 1.2 micron in- line filter.Start: 11-24-2024 End: 11-79-8166506 mg, intravenous, at 124 mL/hr, Administer over 60 Minutes, Once, On [facility] 11/24/24 at 0845, For 1 dose, Administer using 0.2 to 1.2 micron in- line filter.Start: 11-10-2024 End: 64-34-0699654 mg, intravenous, at 124 mL/hr, Administer over 60 Minutes, Once, On [facility] 11/10/24 at 1000, For 1 dose, Administer using 0.2 to 1.2 micron in- line filter.Start: 10-27-2024 End: 74-96-1723642 mg, intravenous, at 124 mL/hr, Administer over 60 Minutes, Once, On [facility] 10/27/24 at 0930, For 1 dose, Administer using 0.2 to 1.2 micron in- line filter.Start: 10-13-2024 End: 90-87-1240890 mg, intravenous, at 124 mL/hr, Administer over 60 Minutes, Once, On [facility] 10/13/24 at 0900, For 1 dose, Administer using 0.2 to 1.2 micron in- line filter.Start: 09-29-2024 End: 10-34-6731622 mg, intravenous, at 124 mL/hr, Administer over 60 Minutes, Once, On Joanne 09/29/24 at 0815, For 1 dose, Administer using 0.2 to 1.2 micron in- line filter.Start: 09-15-2024 End: 19-89-0612387 mg, intravenous, at 124 mL/hr, Administer over 60 Minutes, Once, On Joanne 09/15/24 at 1130, For 1 dose, Administer using 0.2 to 1.2 micron in- line filter.Start: 09-01-2024 End: 44-93-1932930 mg, intravenous, at 124 mL/hr, Administer over 60 Minutes, Once, On Joanne 09/01/24 at 0915, For 1 dose, Administer using 0.2 to 1.2 micron in- line filter.Start: 08-04-2024 End: 08-54-8016045 mg, intravenous, at 124 mL/hr, Administer over 60 Minutes, Once, On [facility] 08/04/24 at 1015, For 1 dose, Administer using 0.2 to 1.2 micron in- line filter.Start: 07-21-2024 End: 04-05-8555065 mg, intravenous, at 124 mL/hr, Administer over 60 Minutes, Once, On Joanne 07/21/24 at 1030, For 1 dose, Administer using 0.2 to 1.2 micron in- line filter.Start: 07-07-2024 End: 45-53-5856176 mg, intravenous, at 124 mL/hr, Administer over [...] syringe (10 sources)Leukocyte Growth FactorStart: 12-09-2024 End: 78-41-4026yukwfp 1 dose by subcutaneous injection once6 mg, subcutaneous, Once, On Thu12/09/24 at 1500, For 1 dose, Administer once per cycle at least 24 hours after chemotherapy. Look-alike/sound-alike medication - verify indication for use., Indications: chemotherapy-induced neutropeniaStart: 11-25-2024 End: 50-96-2085wnjson 1 dose by subcutaneous injection once6 mg, subcutaneous, Once, On Thu11/25/24 at 1430, For 1 dose, Administer once per cycle at least 24 hours after chemotherapy. Look-alike/sound-alike medication - verify indication for use., Indications: chemotherapy-induced neutropeniaStart: 11-11-2024 End: 63-44-9593baslae 1 dose by subcutaneous injection once6 mg, subcutaneous, Once, On Thu11/11/24 at 1415, For 1 dose, Administer once per cycle at least 24 hours after chemotherapy. Look-alike/sound-alike medication - verify indication for use., Indications: chemotherapy-induced neutropeniaStart: 10-28-2024 End: 80-38-5380wmlyhs 1 dose by subcutaneous injection once6 mg, subcutaneous, Once, On Thu10/28/24 at 1200, For 1 dose, Administer once per cycle at least 24 h ours after chemotherapy. Look-alike/sound-alike medication - verify indication for use., Indications: chemotherapy-induced neutropeniaStart: 10-14-2024 End: 32-18-3922mkjdod 1 dose by subcutaneous injection once6 mg, subcutaneous, Once, On Thu10/14/24 at 1200, For 1 dose, Administer once per cycle at least 24 hours after chemotherapy. Look-alike/sound-alike medication - verify indication for use., Indications: chemotherapy-induced neutropeniaStart: 09-30-2024 End: 46-12-6694uhmqzi 1 dose by subcutaneous injection once6 mg, subcutaneous, Once, On Thu09/30/24 at 1030, For 1 dose, Administer once per cycle at least 24 h ours after chemotherapy. Look-alike/sound-alike medication - verify indication for use., Indications: chemotherapy-induced neutropeniaStart: 09-16-2024 End: 25-28-0841hmneky 1 dose by subcutaneous injection once6 mg, subcutaneous, Once, On Thu09/16/24 at 1445, For 1 dose, Administer once per cycle at least 24 hours after chemotherapy. Look-alike/sound-alike medication - verify indication for use., Indications: chemotherapy-induced neutropeniaStart: 09-02-2024 End: 57-66-4755jvrbpk 1 dose by subcutaneous injection once6 mg, subcutaneous, Once, On Thu09/02/24 at 1315, For 1 dose, Administer once per cycle at least 24 h ours after chemotherapy. Look-alike/sound-alike medication - verify indication for use., Indications: chemotherapy-induced neutropeniaStart: 08-05-2024 End: 79-73-0682zrntdh 1 dose by subcutaneous injection once6 mg, subcutaneous, Once, On Thu08/05/24 at 1345, For 1 dose, Administer once per cycle at least 24 h ours after chemotherapy. Look-alike/sound-alike medication - verify indication for use., Indications: chemotherapy-induced neutropeniaStart: 07-22-2024 End: 26-68-9653cwceso 1 dose by subcutaneous injection once6 mg, subcutaneous, Once, On Thu07/22/24 at 1415, For 1 dose, Administer once per cycle at least 24 hours after chemotherapy. Look-alike/sound-alike medication - verify indication for use., Indications: chemotherapy-induced neutropeniasacubitril 24 mg / valsartan 26 mg oral tablet (20 sources)Angiotensin 2 Receptor BlockerStart: 07-16-2023 End: 07-86-6660sqivvquzfQ-valsartan (ENTRESTO) 24-26 mg tablet HOLD until outpatient follow-up with Cardiology 07/16/2023 09/10/2023 DiscontinuedStart: 11-23-2019 End: 56-92-1699jghu 1 tablet by mouth in the morningsacubitriL-valsartan (ENTRESTO) 24-26 mg tablet Take 1 tablet by mouth in the morning. 11/23/2019 DiscontinuedStart: 27-31-7206xorm 1 tablet by mouth twice dailyEntresto 24 mg-26 mg oral tablet 1 tab(s), Oral, BID Start Date: 10/24/19 Status: Ordered 125 ml sodium chloride 9 mg/ml prefilled syringe (20 sources)Start: 01-17-2025 End: mL, intravenous, As needed, port line care, Starting on Thu01/17/25 at 1318, Flush with NS prior to Heplock.Start: 12-08-2024 End: 66-79-8013yqre 25 mL intravenously every hour as vfsumg00 mL/hr, intravenous, Continuous PRN, When mainline IV needed (oncology protocol)., Starting on Thu12/08/24 at 1150, Match IVF to base solution of product being administered to ensure compatibility.Start: 12-07-2024 End: mL, intravenous, As needed, port line care, Starting on Thu12/08/24 at 1149, Flush with NS priorto Heplock.Start: 11-24-2024 End: 07-63-3769vmdv 25 mL intravenously every hour as sydhcs17 mL/hr, intravenous, Continuous PRN, When mainline IV needed (oncology protocol)., Starting on Thu11/24/24 at 0831, Match IVF to base solution of product being administered to ensure compatibility.Start: 11-23-2024 End: mL, intravenous, As needed, port line care, Starting on Thu11/24/24 at 0829, Flush with NS priorto Heplock.Start: 11-10-2024 End: 43-78-2082ntie 25 mL intravenously every hour as ypmjlb00 mL/hr, intravenous, Continuous PRN, When mainline IV needed (oncology protocol)., Starting on Thu11/10/24 at 0957, Match IVF to base solution of product being administered to ensure compatibility.Start: 11-09-2024 End: mL, intravenous, As needed, port line care, Starting on Thu11/10/24 at 1311, Flush with NS priorto Heplock.Start: 10-27-2024 End: 19-67-6038njnw 25 mL intravenously every hour as uivucf38 mL/hr, intravenous, Continuous PRN, When mainline IV needed (oncology protocol)., Starting on Joanne 10/27/24 at 0916, Match IVF to base solution of product being administered to ensure compatibility.Start: 10-26-2024 End: 48-46-292949 mL, intravenous, As needed, port line care, Starting on Joanne 10/27/24 at 0904, Flush with NS priorto Heplock.Start: 10-13-2024 End: 25-88-0590kote 25 mL intravenously every hour as crvbno44 mL/hr, intravenous, Continuous PRN, When mainline IV needed (oncology protocol)., Starting on Joanne 10/13/24 at 0859, Match IVF to base solution of product being administered to ensure compatibility.Start: 10-12-2024 End: 83-50-538743 mL, intravenous, As needed, port line care, Starting on Joanne 10/13/24 at 0850, Flush with NS priorto Heplock.Start: 09-29-2024 End: 59-39-2590xwcg 25 mL intravenously every hour as uzzclp45 mL/hr, intravenous, Continuous PRN, When mainline IV needed (oncology protocol)., Starting on Joanne 09/29/24 at 0801, Match IVF to base solution of product being administered to ensure compatibility.Start: 09-28-2024 End: 74-07-457951 mL, intravenous, As needed, port line care, Starting on Joanne 09/29/24 at 0752, Flush with NS prior to Heplock.Start: 09-15-2024 End: 79-31-834542 mL, intravenous, As needed, port line care, Starting on Joanne 09/15/24 at 1130, Flush with NS priorto Heplock.Start: 09-15-2024 End: 69-78-3847niqs 25 mL intravenously every hour as mL/hr, intravenous, Continuous PRN, When mainline IV needed (oncology protocol)., Starting on Joanne 09/15/24 at 1119, Match IVF to base solution of product being administered to ensure compatibility.Start: 09-13-2024 End: 66-12-501348 mL, intravenous, As needed, port line care, Starting on Thu09/13/24 at 1050, Flush with NS priorto Heplock.Start: 09-01-2024 End: 69-26-161607 mL, intravenous, As needed, port line care, Starting on Joanne 09/01/24 at 0909, Flush with NS prior to Heplock.Start: 09-01-2024 End: 51-38-3509mzvb 25 mL intravenously every hour as kvkooy93 mL/hr, intravenous, Continuous PRN, When mainline IV needed (oncology protocol)., Starting on Joanne 09/01/24 at 0907, Match IVF to base solution of product being administered to ensure compatibility.Start: 08-30-2024 End: 61-95-777480 mL, intravenous, As needed, port line care, Starting on e 08/30/24 at 0957, Flush with NS prior to Heplock.Start: 08-16-2024 End: 87-72-883561 mL, intravenous, As needed, port line care, Starting on Thu08/16/24 at 1319, Flush with NS priorto Heplock.Start: 08-04-2024 End: 11-25-113084 mL, intravenous, As needed, port line care, Starting on Joanne 08/04/24 at 1308, Flush with NS prior to Heplock.Start: 08-04-2024 End: 18-66-5851xvcp 25 mL intravenously every hour as sdonab95 mL/hr, intravenous, Continuous PRN, When mainline IV needed (oncology protocol)., Starting on Joanne 08/04/24 at 1006, Match IVF to base solution of product being administered to ensure compatibility.Start: 08-02-2024 End: 38-39-147106 mL, intravenous, As needed, port line care, Starting on e 08/02/24 at 1101, Flush with NS prior to Heplock.Start: 07-21-2024 End: 18-25-433140 mL, intravenous, As needed, port line care, Starting on Joanne 07/21/24 at 1045, Flush with NS priorto Heplock.Start: 07-21-2024 End: 10-11-2772ufeq 25 mL intravenously every hour as fkyhqe10 mL/hr, intravenous, Continuous PRN, When mainline IV needed (oncology protocol)., Starting on Joanne 07/21/24 at 1028, Match IVF to base solution of product being administered to ensure compatibility.Start: 07-18-2024 End: 60-62-287782 mL, intravenous, As needed, port line care, Starting on Thu07/18/24 at 1503, Flush with NS priorto Heplock.Start: 07-07-2024 End: 97-59-666201 mL, intravenous, As needed, port line care, Starting on Joanne 07/07/24 at 0945, Flush with NS priorto Heplock.Start: 07-07-2024 End: 57-57-8513kuzv 25 mL intravenously every hour as mL/hr, intravenous, Continuous PRN, When mainline IV needed (oncology protocol)., Starting on Joanne 07/07/24 at 0944, Match IVF to base solution of product being administered to ensure compatibility.Start: 07-05-2024 End: 99-42-228926 mL, intravenous, As needed, port line care, Starting on Thu07/05/24 at 1217, Flush with NS prior to Heplock.Start: 46-07-380644 mL, intravenous, As needed, port line care, Starting on Joanne 06/02/24 at 1156, Flush with NS prior to Heplock.Start: 02-11-2024 End: 29-59-089481 mL, intravenous, As needed, port line care, Starting on Joanne 02/11/24 at 1037, Flush with NS prior to Heplock.Start: 02-11-2024 End: 12-99-2862kzlo 25 mL intravenously every hour as faqsty13 mL/hr, intravenous, Continuous PRN, When mainline IV needed (oncology protocol)., Starting on Joanne 02/11/24 at 1035, Match IVF to base solution of product being administered to ensure compatibility.Start: 01-28-2024 End: 16-79-053881 mL, intravenous, As needed, port line care, Starting on Joanne 01/28/24 at 1142, Flush with NS prior to Heplock.Start: 01-28-2024 End: 47-65-5974mged 25 mL intravenously every hour as suagix03 mL/hr, intravenous, Continuous PRN, When mainline IV needed (oncology protocol)., Starting on Joanne 01/28/24 at 1025, Match IVF to base solution of product being administered to ensure compatibility.Start: 06-04-663914 mL, intravenous, As needed, port line care, Starting on Thu01/15/24 at 1212, Flush with NS prior to Heplock.Start: 2023 End: 38-28-007685 mL, intravenous, As needed, port line care, Starting on Joanne 12/31/23 at 1024, Flush with NS priorto Heplock.Start: 2023 End: 56-79-0837mcxd 25 mL intravenously every hour as lmymzl46 mL/hr, intravenous, Continuous PRN, When mainline IV needed (oncology protocol)., Starting on Joanne 12/31/23 at 1023, Match IVF to base solution of product being administered to ensure compatibility.Start: 12-17-2023 End: 78-17-552902 mL, intravenous, As needed, port line care, Starting on Joanne 12/17/23 at 1015, Flush with NS priorto Heplock.Start: 12-17-2023 End: 88-32-3589agcp 25 mL intravenously every hour as viruqt34 mL/hr, intravenous, Continuous PRN, When mainline IV needed (oncology protocol)., Starting on Joanne 12/17/23 at 1015, Match IVF to base solution of product being administered to ensure compatibility.Start: 12-03-2023 End: 65-47-2066qkjg 25 mL intravenously every hour as tnorxv62 mL/hr, intravenous, Continuous PRN, When mainline IV needed (oncology protocol)., Starting on Joanne 12/03/23 at 1036, Match IVF to base solution of product being administered to ensure compatibility.Start: 12-03-2023 End: 80-26-252022 mL, intravenous, As needed, port line care, Starting on Joanne 12/03/23 at 1028, Flush with NS prior to Heplock.Start: 11-19-2023 End: 60-12-9660payu 25 mL intravenously every hour as rlvgus29 mL/hr, intravenous, Continuous PRN, When mainline IV needed (oncology protocol)., Starting on Joanne 11/19/23 at 1035, Match IVF to base solution of product being administered to ensure compatibility.Start: 11-05-2023 End: 46-59-798078 mL, intravenous, As needed, port line care, Starting on Joanne 11/05/23 at 1028, Flush with NS prior to Heplock.Start: 11-05-2023 End: 39-24-8755ldsz 25 mL intravenously every hour as zfwneo12 mL/hr, intravenous, Continuous PRN, When mainline IV needed (oncology protocol)., Starting on Joanne 11/05/23 at 1012, Match IVF to base solution of product being administered to ensure compatibility.Start: 10-22-2023 End: 57-47-459660 mL, intravenous, As needed, port line care, Starting on Joanne 10/22/23 at 1102, Flush with NS priorto Heplock.Start: 10-22-2023 End: 30-70-5685qaiy 25 mL intravenously every hour as mynmic25 mL/hr, intravenous, Continuous PRN, When mainline IV needed (oncology protocol)., Starting on Joanne 10/22/23 at 1025, Match IVF to base solution of product being administered to ensure compatibility.Start: 09-24-2023 End: mL, intravenous, As needed, port line care, Starting on Joanne 09/24/23 at 1248, Flush with NS priorto Heplock.Start: 09-24-2023 End: 36-17-0565mujg 25 mL intravenously every hour as iylzoo56 mL/hr, intravenous, Continuous PRN, When mainline IV needed (oncology protocol)., Starting on Ojanne 09/24/23 at 1010, Match IVF to base solution of product being administered to ensure compatibility.Start: 09-10-2023 End: mL, intravenous, As needed, port line care, Starting on Joanne 09/10/23 at 1037, Flush with NS priorto Heplock.Start: 09-10-2023 End: 56-69-3323yoiv 25 mL intravenously every hour as mL/hr, [...] at 1215, For 1 doseStart: 08-13-2023 End: 33-16-854654 mL, intravenous, As needed, port line care, Starting on Thu08/13/23 at 1431, Flush with NS priorto Heplock.Start: 08-13-2023 End: 07-69-8706pzkr 25 mL intravenously every hour as befwac88 mL/hr, intravenous, Continuous PRN, When mainline IV needed (oncology protocol)., Starting on Thu08/13/23 at 1035, Match IVF to base solution of product being administered to ensure compatibility.Start: 08-13-2023 End: ,000 mL, intravenous, at 500 mL/hr, Administer over 2 Hours, Once, On Thu08/13/23 at 1030, For 1 doseStart: 08-07-2023 End: 39-53-062192 mL, intravenous, As needed, port line care, Starting on Thu08/07/23 at 1015, Flush with NS priorto Heplock.Start: 07-31-2023 End: 38-24-2028zgxz 25 mL intravenously every hour as qgcfdo05 mL/hr, intravenous, Continuous PRN, When mainline IV needed (oncology protocol)., Starting on Thu07/31/23 at 1112, Match IVF to base solution of product being administered to ensure compatibility.vinBLAStine (VELBAN) 14 mg in sodium chloride 0.9 % (PVC) 50 mL chemo IVPB (3 sources)Start: 10-27-2024 End: 68-53-9761abhe 1 dose intravenously once14 mg (rounded from 13.68 mg = 6 mg/m2 2.28 m2 Treatment Plan BSA from Recorded weight), intravenous, at 384 mL/hr, Administer over 10 Minutes, Once, On Joanne 10/27/24 at 1015, For 1 dose, Give IV only.Fatal if given by other routes. VESICANT Look-alike/sound-alike medication - verify indication for use.Start: 09-15-2024 End: 89-68-2502aifs 1 dose intravenously once14 mg (rounded from 13.68 mg = 6 mg/m2 2.28 m2 Treatment Plan BSA from Recorded weight), intravenous, at 384 mL/hr, Administer over 10 Minutes, Once, On Joanne 09/15/24 at 1215, For 1 dose, Give IV only.Fatal if given by other routes. VESICANT Look-alike/sound-alike medication - verify indication for use.Start: 09-01-2024 End: 76-54-2486gsar 1 dose intravenously once14 mg (rounded from [...] mL chemo IVPB (8 sources)Start: 12-08-2024 End: 40-17-7799bfyq 1 dose intravenously once14 mg (rounded from 13.68 mg = 6 mg/m2 2.28 m2 Treatment Plan BSA from Recorded weight), intravenous, at 384 mL/hr, Administer over 10 Minutes, Once, On Joanne 12/08/24 at 1245, For 1 dose, Give IV only.Fatal if given by other routes. VESICANT Look-alike/sound-alike medication - verify indication for use.Start: 11-24-2024 End: 72-48-2752jcre 1 dose intravenously once14 mg (rounded from 13.68 mg = 6 mg/m2 2.28 m2 Treatment Plan BSA from Recorded weight), intravenous, at 384 mL/hr, Administer over 10 Minutes, Once, On Joanne 11/24/24 at 0930, For 1 dose, Give IV only.Fatal if given by other routes. VESICANT Look-alike/sound-alike medication - verify indication for use.Start: 11-10-2024 End: 51-57-4593ckft 1 dose intravenously once14 mg (rounded from 13.68 mg = 6 mg/m2 2.28 m2 Treatment Plan BSA from Recorded weight), intravenous, at 384 mL/hr, Administer over 10 Minutes, Once, On Joanne 11/10/24 at 1045, For 1 dose, Give IV only.Fatal if given by other routes. VESICANT Look-alike/sound-alike medication - verify indication for use.Start: 10-13-2024 End: 35-77-1671jkic 1 dose intravenously once14 mg (rounded from 13.68 mg = 6 mg/m2 2.28 m2 Treatment Plan BSA from Recorded weight), intravenous, at 384 mL/hr, Administer over 10 Minutes, Once, On Joanne 10/13/24 at 0945, For 1 dose, Give IV only.Fatal if given by other routes. VESICANT Look-alike/sound-alike medication - verify indication for use.Start: 09-29-2024 End: 78-48-7240rysu 1 dose intravenously once14 mg (rounded from 13.68 mg = 6 mg/m2 2.28 m2 Treatment Plan BSA from Recorded weight), intravenous, at 384 mL/hr, Administer over 10 Minutes, Once, On Joanne 09/29/24 at 0900, For 1 dose, Give IV only. Fatal if given by other routes. VESICANT Look-alike/sound-alike medication - verify indication for use.Start: 08-04-2024 End: 60-82-4226irfq 1 dose intravenously once14 mg (rounded from 13.68 mg = 6 mg/m2 2.28 m2 Treatment Plan BSA from Recorded weight), intravenous, at 384 mL/hr, Administer over 10 Minutes, Once, On Joanne 08/04/24 at 1100, For 1 dose, Give IV only. Fatal if given by other routes. VESICANT Look-alike/sound-alike medication - verify indication for use.Start: 07-21-2024 End: 88-50-1956hdem 1 dose intravenously once14 mg (rounded from 13.68 mg = 6 mg/m2 2.28 m2 Treatment Plan BSA from Recorded weight), intravenous, at 384 mL/hr, Administer over 10 Minutes, Once, On Joanne 07/21/24 at 1115, For 1 dose, Give IV only.Fatal if given by other routes. 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]Onset: 075630-67-1254JsrvsktMiryupeojb disorders (15 sources)Automatic implantable cardiac defibrillator in situ; 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: [Presence of automatic (implantable) cardiac defibrillator]Onset: 07-12-2021 86-98-5453QfzmutjXlpvjmgrnt heart failure; nonhypertensive (20 sources)Unspecified systolic (congestive) heart failure; 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: [Acute systolic (congestive) heart failure]Onset: 423241-54-1546Njyrbwl Coronary atherosclerosis and other heart disease (20 sources)Atherosclerotic heart disease of [place] coronary artery without angina pectoris; 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: [Atherosclerotic heart disease of [place] coronary artery with unstable angina pectoris]Onset: 94-03-2228KmispziVkbvxgek atherosclerosis and other heart disease (4 sources)Presence of aortocoronary bypass graft; 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: [PRESENCE OF AORTOCORONARY BYPASS GRAFT]Onset: 13-08-9982LdgumzrdWhgngpmox of lipid metabolism (1 source)Hyperlipidemia, unspecified; 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: [HYPERLIPIDEMIA, UNSPECIFIED]Onset: 51-09-1345GoqfdvhAyharmaxn hypertension (20 sources)Hypertensive disorder; 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: [Essential (primary) hypertension]Onset: 951095-51-9897CqeuhktWvfdwqx`s disease (20 sources)Hodgkin's disease (clinical); 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: [Hodgkin lymphoma, unspecified, unspecified site]Onset: 387846-34-8827CtxivmhZkbbqlfrvduo with complications and secondary hypertension (20 sources)Hypertensive heart disease with heart failure; 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: [Hypertensive heart failure]Onset: 228815-02-2098LpentuhCzb-Zgwmouv`s lymphoma (4 sources)Malignant lymphoma; 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: [Non-Hodgkin lymphoma, unspecified, unspecified site]Onset: 312226-56-6387YpkqoabXsttm aftercare (4 sources)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; 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]10-57-5231HhgdpnzgHfqpb aftercare (1 source)Long-term current use of drug therapy; 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: [Encounter for therapeutic drug level monitoring]87-44-8356CxjqhptrFsqjf and ill-defined heart disease (1 source)Cardiomegaly; 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: [CARDIOMEGALY]Onset: 05-29-7202Fmkwprd Other circulatory disease (2 sources)Presence of other cardiac implants and grafts; 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: [PRESENCE OF OTHER CARDIAC IMPLANTS AND GRAFTS]Onset: 89-09-7835MxxbxrqQcmqo congenital anomalies (1 source)Bilateral right-sidedness -59-0840QjaxtmxPzoti nervous system disorders (5 sources)Bilateral peripheral neuropathy of lower limbs; 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: [Unspecified mononeuropathy of bilateral lower limbs]Onset: ChronicOther nutritional; endocrine; and metabolic disorders (1 source)Body mass index 30+ - aqeonza38-92-0311HbxwveyOzffv nutritional; endocrine; and metabolic disorders (20 sources)Hypomagnesemia; 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: [Hypomagnesemia]Onset: 10-03-2023 31-09-6435XnxtcnrMqctu nutritional; endocrine; and metabolic disorders (5 sources)Obese class II; 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: [Obesity, Class II, BMI 35-39.9]Onset: 880480-32-3383GaxjchqHcnso upper respiratory disease (2 sources)Chronic rhinitis; 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: [Chronic rhinitis]07-84-5703Oaoujaq Other upper respiratory disease (2 sources)Lesion of nose; 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: [Other specified disorders of nose and nasal sinuses]52-29-9541AogawzeqEhxi-; endo-; and myocarditis; cardiomyopathy (20 sources)Cardiomyopathy, unspecified; 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: [Cardiomyopathy]Onset: 301323-17-3689StklpbqXjuxhucds (except that caused by tuberculosis or sexually transmitted disease) (1 source)Pneumonia (except that caused by tuberculosis or sexually transmitted disease)Onset: 52-61-8601Eczjucac codes; unclassified (1 source)Pain, unspecified; 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: [Pain, unspecified]Onset: 06-25-2023 EpisodicUnclassified (2 sources)Unknown / UNK(Unknown)Onset: 37-77-0040Ggszhpkkjrop (1 source)Hypertensive urgency; 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: [HYPERTENSIVE URGENCY]Onset: 13-45-0689Ptwzwnlwmvlr (1 source)Patient encounter xwuumo60-25-7066Ahdetisagfvs (1 source)Long-term current use of drug jqpaohw29-92-7204Vgpezmqquebo (1 source)Labs OnlyOnset: 15-79-9257Ttqndphqwswb (1 source)InjectionOnset: 25-05-6957Ssryshetefxw (1 source)Outpatient InfusionOnset: 74-43-9542Kglylnwvebuw (1 source)Port/VAD CareOnset: 44-61-0657Xbpgveklmxcn (2 sources)Nose BleedOnset: 02-14-2024 Past or Other Problems Problem ClassificationProblemDateDocumented DateEpisodic/ChronicCardiac dysrhythmias (6 sources)Tachycardia; 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: [Tachycardia, unspecified]Onset: 127677-42-1599UknqztpeJlgvoiyrbs associated with dizziness or vertigo (5 sources)Dizziness and giddiness; 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: [Dizziness and giddiness] Onset: 298030-40-0707WcpgnkkmJlfcvmgl of white blood cells (20 sources)White blood cell count abnormal; 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: [Disorder of white blood cells, unspecified]Onset: 10-07-2023 Resolved: 962775-84-9502MzxzqxmBdnzy and electrolyte disorders (20 sources)Hypokalemia; 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: [Hypokalemia]Onset: 10-03-2023 Resolved: 733912-05-8055NqwufrhbTnzdamcmmvqzo and screening for infectious disease (1 source)Encounter for immunization; 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: [ENCOUNTER FOR IMMUNIZATION] Onset: 63-36-6672FhlxzjruWtizcwgjnr infection (20 sources)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; 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: [Acute gastroenteropathy due to [place] agent]Onset: 10-03-2023 Resolved: 549914-88-9684CnjclzmbEzxrpqx and fatigue (20 sources)Fatigue; 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: [Other fatigue]Onset: EpisodicNonspecific chest pain (2 sources)Chest pain, unspecified; 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: [CHEST PAIN, UNSPECIFIED] Onset: 47-24-8285CrwpxskuCoieu aftercare (3 sources)Encounter for surgical aftercare following surgery on the circulatory system; 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: [correction (current) use of aspirin]Onset: 01-28-2017 EpisodicOther aftercare (6 sources)Long-term current use of anticoagulant; 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: [correction (current) use of anticoagulants]Onset: 192971-34-3699VecetckpJyoyq and unspecified benign neoplasm (6 sources)Tubular adenoma of colon; 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: [Benign neoplasm of colon, unspecified]Onset: 334553-19-1266EmssqecbOzbuq bone disease and musculoskeletal deformities (5 sources)Disorder of bone, unspecified; 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: [Disorder of bone and cartilage, unspecified]Onset: 333396-14-2491WywbdehbQhmwk gastrointestinal disorders (20 sources)Diarrhea; 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: [Diarrhea, unspecified]Onset: 10-03-2023 Resolved: 459043-80-7215TdiqmvkwYrnyc gastrointestinal disorders (5 sources)Constipation; 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: [Constipation, unspecified]Onset: 891744-97-0147JkjsybvxDqprb gastrointestinal disorders (1 source)Diarrhea of presumed infectious origin; 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: [Diarrhea, unspecified]52-38-7490LcicrxqcWzwch lower respiratory disease (20 sources)Lung mass; 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: [Other nonspecific abnormal finding of lung field]Onset: 768705-92-1630TgutzsjeCrndn lower respiratory disease (1 source)Other nonspecific abnormal finding of lung field; 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: [Other nonspecific abnormal findingof lung field]Onset: 20-60-9521TcvnaacqVtrnh lower respiratory disease (1 source)Hypoxemia; 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: [Hypoxemia]Onset: 37-75-5392RtrbyzkrAxofp upper respiratory disease (9 sources)Epistaxis; 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: [Epistaxis]Onset: EpisodicOther upper respiratory disease (7 sources)Bleeding from nose; 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: [Epistaxis]Onset: 02-22-2024 02-91-7432EpejkzajCviarvuds (except that caused by tuberculosis or sexually transmitted disease) (20 sources)Pneumonia; 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: [Pneumonia, unspecified organism]Onset: 196244-43-4590DxnlqvawMtiqejnzykd failure; insufficiency; arrest (adult) (1 source)Respiratory failure, unspecified, unspecified whether with hypoxia or hypercapnia; 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: [Respiratory failure, unspecified, unspecified whether with hypoxia or hypercapnia]Onset: 08-27-4645KieesupuKtxzlbqqh or history of mental health and substance abuse (1 source)Personal history of nicotine dependence; 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: [PERSONAL HISTORY OF NICOTINE DEPENDENCE]Onset: 09-84-3450FhivpaoyZskvrmmbe-related disorders (5 sources)Drug-induced insomnia; 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: [Other psychoactive substance use, unspecified with psychoactive substance-induced sleep disorder]Onset: 094176-01-7274TwxvmzcvOmvnibncdztf (3 sources)Abnormal findings on diagnostic imaging of heart and coronary circulation; 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: [Patient encounter status]Onset: EpisodicUnclassified (4 sources)Bone krybyq13-63-7641 Results Test NameValueInterpretationReference RangeFacilityOrders Onlyon 01-05-2025 Orders [id number] Torsten Haywood 1955 Date Provider Department Center 01/05/2025 CARLOS TA HVC CARD [facility] Family History Problem Relation Age of Onset Coronary artery disease Father Coronary artery disease Brother Family Status - Relation Status Age at Mother Father BrotherNormalUniversity of Children'S Hospital [facility] San AntonioOrders [id number] Torsten Haywood [place] 1955 M Date Provider Department Center 01/05/2025 KAY GRIMES HVC CARD [facility] Family History Problem Relation Age of Onset Coronary artery disease Father Coronary artery disease Brother Family Status - Relation Status Age at Mother Father BrotherNormalUniKeenan Private HospitalCBC WITH AUTO DIFFERENTIALon 03-17-3231Gbza form neutrophils/100 WBC (Bld)3 %NormalBerger Hospital Comment on above:Order Comment: See Springboard - Labs Due report.Result Comment: This is an appended report. These results have been appended to a previously preliminary verified report.Performed By: #### CBCA ####[facility] ([facility])[address] [place], [place] [id number] VIR CELLAVISION DIFFERENTIAL TYPEMANUAL DIFFERENTIALNoalBerger Hospital Comment on above:Order Comment: See Springboard - Labs Due report.Result Comment: This is an appended report. These results have been appended to a previously preliminary verified report.Performed By: #### CBCA ####[facility] ([address] [id number] VIR CELLAVISION EOSINOPHILS ABSOLUTE COUNT (10*3/UL) BY MANUAL COUNT0.2 10*3/uL Normal0.0-0.4Berger HospitalComment on above:Order Comment: See Springboard - Labs Due report.Result Comment: This is an appended report. These results have been appended to a previously preliminary verified report.Performed By: #### CBCA ####[facility] ([address] [id number] VIRCELLAVISION EOSINOPHILS PERCENT BY MANUAL COUNT1 %Normal [facility] HospitalComment on above:Order Comment: See Springboard - Labs Due report.Result Comment: This is an appended report. These results have been appended to a previously preliminary verified report.Performed By: #### CBCA ####[facility]ENTERTr[facility] ([address], [id number] VIRCELLAVISION LYMPHOCYTES ABSOLUTE COUNT (10*3/UL) BY MANUAL COUNT6.2 10*3/uL High1.0-3.5PMercy Health St. [facility] on above:Order Comment: See Springboard - Labs Due report.Result Comment: This is an appended report. These results have been appended to a previously preliminary verified report.Performed By: #### CBCA ####[facility]ENTERTr[facility] ([address], [id number] VIRCELLAVISION LYMPHOCYTES RELATIVE PERCENT BY MANUAL COUNT 36 %NormalDetwiler Memorial Hospital on above:Order Comment: See Springboard - Labs Due report.Result Comment: This is an appended report. These results have been appended to a previously preliminary verified report.Performed By: #### CBCA ####[facility] ([address], [id number] VIRCELLAVISION METAMYELOCYTES RELATIVE PERCENT BY MANUAL COUNT1 %NormalDetwiler Memorial Hospital on above:Order Comment: See Springboard - Labs Due report.Result Comment: This is an appended report. These results have been appended to a previously preliminary verified report.Performed By: #### CBCA ####[facility] ([address], [id number] VIRCELLAVISION MONOCYTES ABSOLUTE COUNT (10*3/UL) IN BLOOD BY MANUAL COUNT1.4 10*3/uLHigh0.0-0.9ProBaylor Scott & [facility] [place] on above: Order Comment: See Springboard - Labs Due report.Result Comment: This is an appended report. These results have been appended to a previously preliminary verified report.Performed By: #### CBCA ####[facility] ([address] [place], [id number] VIRCELLAVISION MONOCYTES RELATIVE PERCENT BY MANUAL COUNT8 %NormalProBaylor Scott & White Medical Center – [place] on above:Order Comment: See Springboard - Labs Due report.Result Comment: This is an appended report. These results have been appended to a previously preliminary verified report.Performed By: #### CBCA ####[facility] ([address], [id number] VIRCELLAVISION NEUTROPHILS ABSOLUTE COUNT BY MANUAL COUNT9.1 10*3/uLHigh1.5-6.6Det[facility] on above: Order Comment: See Springboard - Labs Due report.Result Comment: This is an appended report. These results have been appended to a previously preliminary verified report.Performed By: #### CBCA ####[facility] ([address], [id number] VIRCELLAVISION NEUTROPHILS RELATIVE PERCENT BY MANUAL COUNT51 %NormalProBaylor Scott & White [facility] [place] on above: Order Comment: See Springboard - Labs Due report.Result Comment: This is an appended report. These results have been appended to a previously preliminary verified report.Performed By: #### CBCA ####[facility] ([address], [id number] VIRCELLAVISION NUCLEATED RED BLOOD CELLS IN BLOOD BY LIGHT NGRGAVZSNC0KqqymeTnxHuededBaylor Scott & White Medical Center – [place] on above:Order Comment: See Springboard - Labs Due report.Result Comment: This is an appended report. These results have been appended to a previously preliminary verified report.Performed By: #### CBCA ####[facility]ENTERTr[facility] ([address], [id number] VIRErythrocyte distribution width (RBC) [Ratio]19.5 %High11.5-15ProBaylor Scott & White Medical Center – [place] on above:Order Comment: See Springboard - Labs Due report.Performed By: #### CBCA ####[facility] ([address], [id number] VIR Hematocrit (Bld) [Volume fraction]39.9 %Zrnkdk56-75FudZsweaqBerger Hospital Comment on above:Order Comment: See Springboard - Labs Due report.Performed By: #### CBCA ####[facility] ([address], [id number] VIRHemoglobin (Bld) [Mass/Vol]13.1 g/hGDnqnay96-02YrlApjrrcBerger HospitalComment on above:Order Comment: See Springboard - Labs Due report.Performed By: #### CBCA ####[facility] ([address], [id number] VIRMCH (RBC) [Entitic mass]31.9 akKkzcwc82-24 [facility] HospitalComment on above:Order Comment: See Springboard - Labs Due report.Performed By: #### CBCA ####[facility] ([address], [id number] VIRMCHC (RBC) [Mass/Vol]32.8 g/dLNormal 32-36Ber[facility] HospitalComment on above:Order Comment: See Springboard - Labs Due report.Performed By: #### CBCA ####[facility] ([address], [id number] VIRMCV (RBC) [Entitic vol]97 fLNormal 80-100Ber[facility] HospitalComment on above:Order Comment: See Springboard - Labs Due report.Performed By: #### CBCA ####[facility] ([address], [id number] VIRPlatelet mean volume (Bld) [Entitic vol]10.1 fLNormal7-12POhioHealth Hardin Memorial HospitalComment on above:Order Comment: See Springboard - Labs Due report.Performed By: #### CBCA ####[facility] [address], [id number] VIRPlatelets (Bld) [#/Vol]375 10*3/jNKakgvl204-287HxfTirsfx [facility] HospitalComc.[facility] on above: Order Comment: See Springboard - Labs Due report.Performed By: #### CBCA ####[facility]ENTERA [facility] ([address], [id number] VIRRBC COUNT4.09 X10E12/LLow4.1-5.7Ber[facility] HospitalComc.[facility]. [facility] on above: Order Comment: See Springboard - Labs Due report.Performed By: #### CBCA ####[facility]ENTERTr[facility] [address], [id number] VIRWBC (Bld) [#/Vol]17.1 10*3/uLHigh4-11Ber[facility] HospitalComc.[facility]. [facility] on above:Order Comment: See Springboard - Labs Due report.Performed By: #### CBCA ####[facility] ([address], [id number] VIRCBC auto differentialon 95-60-1815Lmpc form neutrophils/100 WBC (Bld)3 % [facility] HospitalComc.[facility] on above:This is an appended report. These results have been appended to a previously preliminary verified report. Differential cell count method Nom (Bld)MANUAL DIFFERENTIALCleveland Clinic Marymount HospitalComment on above:This is an appended report. These results have been appended to a previously preliminary verified report.Eosinophils (Bld) [#/Vol] 0.2 10*3/uL0.0 - 0.4 10*3/uLBrown Memorial Hospital SystemComment on above:This is an appended report. These results have been appended to a previously preliminary verified report.Eosinophils/100 WBC (Bld)1 %[facility] HospitalComment on above:This is an appended report. These results have been appended to a previously preliminary verified report.Erythrocyte distribution width (RBC) [Ratio]19.5 %High11.5 - 15 %[facility] SystemHematocrit (Bld) [Volume fraction]39.9 %39 - 50 %[facility] HospitalHemoglobin (Bld) [Mass/Vol]13.1 g/dL13 - 17 g/dLCleveland Clinic Marymount HospitalInterpretation and review of laboratory resultsAbnormalCleveland Clinic Marymount HospitalLymphocytes (Bld) [#/Vol]6.2 10*3/uLHigh 1.0 - 3.5 10*3/uLBrown Memorial Hospital SystemComment on above:This is an appended report. These results have been appended to a previously preliminary verified re port.MCH (RBC) [Entitic mass]31.9 pg27 - 34 [facility] HospitalMCHC (RBC) [Mass/Vol]32.8 g/dL32 - 36 g/dLCleveland Clinic [facility] HospitalMCV (RBC) [Entitic vol]97 fL80 - 100 [facility] SpringsMetamyelocytes/100 WBC (Bld)1 %[facility] HospitalComment on above:This is an appended report. These results have been appended to a previously preliminary verified report.Monocytes (Bld) [#/Vol]1.4 10*3/uLHigh0.0 - 0.9 10*3/uLBrown Memorial Hospital SystemComment on above: This is an appended report. These results have been appended to a previously preliminary verified report.Monocytes/100 WBC (Bld)8 %[facility] Comment on above:This is an appended report. These results have been appended to a previously preliminary verified report.Neutrophils (Bld) [#/Vol]9.1 10*3/uL High1.5 - 6.6 10*3/uLCleveland Clinic Marymount HospitalComment on above:This is an appended report. These results have been appended to a previously preliminary verified report.Neutrophils/100 WBC (Bld)51 %[facility] HospitalComment on above:This is an appended report. These results have been appended to a previously preliminary verified report.Nucleated RBC/100 WBC (Bld) [Ratio]2 %[facility] HospitalComment on above:This is an appended report. These results have been appended to a previously preliminary verified report.Platelet mean volume (Bld) [Entitic vol]10.1 fL7 - 12 fLPMagruder Hospital SystemPlatelets (Bld) [#/Vol]375 10*3/uLBrown Memorial Hospital SystemRBC (Bld) [#/Vol]4.09 10*6/uLLow [facility] Clinic [facility] HospitalVariant lymphocytes/100 WBC (Bld)36 %[facility] HospitalComment on above:This is an appended report. These results have been appended to a previously preliminary verified report.WBC LM Ql (Sput)17.1High [facility] HospitalCOMPREHENSIVE METABOLIC PANELon 44-67-4831Hcsstmj [Mass/Vol]3.6 g/dLNormal3.2-5.3POhioHealth Hardin Memorial Hospital Comment on above:Order Comment: See Springboard - Labs Due reportPerformed By: #### CMP ####[facility] ([facility])[address] [place] [address] [place] [address] VIRALP [Catalytic activity/Vol]89 U/UQnpqhw49-990SduRlaffeBerger HospitalComment on above:Order Comment: See Springboard - Labs Due reportPerformed By: #### CMP ####[facility] ([address] [place] [address] VIRALT [Catalytic activity/Vol]31 U/LNormal<=40 [facility] HospitalComment on above:Order Comment: See Springboard - Labs Due reportPerformed By: #### CMP ####[facility] ([address] [place] [address] VIRAnion gap [Moles/Vol]9 mmol/LNormal 5-15Berger HospitalComment on above:Order Comment: See Springboard - Labs Due reportPerformed By: #### CMP ####[facility] ([address] [address] VIRAST [Catalytic activity/Vol]36 U/L Normal<=41Berger HospitalComment on above:Order Comment: See Springboard - Labs Due reportPerformed By: #### CMP ####[facility] ([facility])[address] [place] [address] [place] [address] VIRBilirubin [Mass/Vol]0.5 mg/dLNormal0.3-1.2POhioHealth Hardin Memorial HospitalComment on above:Order Comment: See Springboard - Labs Due reportPerformed By: #### CMP ####[facility] ([address] [place] [address] VIRCalcium [Mass/Vol]8.9 mg/dLNormal8.5-10.5POhioHealth Hardin Memorial HospitalComment on above: Order Comment: See Springboard - Labs Due reportPerformed By: #### CMP ####[facility] ([address], [place] [address] VIRChloride [Moles/Vol]103 mmol/JLlelln44-168IbfDppykxBerger Hospital Comment on above:Order Comment: See Springboard - Labs Due reportPerformed By: #### CMP ####[facility] ([address] [place] [address] VIRCO2 [Moles/Vol]25 mmol/AWaeknb26-03GqeTnhhntOhioHealth Hardin Memorial HospitalComment on above:Order Comment: See Springboard - Labs Due report Performed By: #### CMP ####[facility] ([address] [place] [address] VIRCreatinine [Mass/Vol]0.83 mg/dLNormal0.70-1.20 [facility] HospitalComment on above:Order Comment: See Springboard - Labs Due reportResult Comment: METHOD TRACEABLE TO IDMS STANDARDPerformed By: #### CMP ####[facility] ([address] [address] VIREGFR (CKD-EPI) NON-RACE DEPENDENT>^90Normal>=60ProMayhill HospitalComment on above:Order Comment: See Springboard - Labs Due reportResult Comment: eGFR not reported due to non-numeric value for Creatinine.Reported eGFR is based ontheCKD-EPI 2020 equation that doesnot use a race coefficient. Performed By: #### CMP ####[facility] ([address] [place] [address] VIRGlucose [Mass/Vol]131 mg/qGRums94-83ClgJeinjuMayhill HospitalComment on above:Order Comment: See Springboard - Labs Due reportPerformed By: #### CMP ####[facility] ([address] [place] [address] VIRPotassium [Moles/Vol]4.1 mmol/LNormal3.5-5.0 Berger HospitalComc.[facility]. [facility] on above:Order Comment: See Springboard - Labs Due reportPerformed By: #### CMP ####[facility] ([address] [place] [address] VIRProtein [Mass/Vol]6.5 g/dLNormal 6.0-8.0Berger HospitalComment on above:Order Comment: See Springboard - Labs Due reportPerformed By: #### CMP ####[facility] ([address] [place] [address] VIRSodium [Moles/Vol]137 mmol/LNormal 134-146ProMayhill HospitalComc.s. [facility] on above:Order Comment: See Springboard - Labs Due reportPerformed By: #### CMP ####[facility] ([address] [place] [address] VIRUrea nitrogen [Mass/Vol]18 mg/dL Normal5-27ProMayhill HospitalComment on above:Order Comment: See Springboard - Labs Due reportPerformed By: #### CMP ####[facility] ([address] [place] [address] VIRComprehensive metabolic panelon 73-51-2839Ginlefv [Mass/Vol]3.6 g/dL3.2 - 5.3 g/dLBrown Memorial Hospital SystemALP [Catalytic activity/Vol]89 U/L39 - 130 U/LPrAdventHealth Porter Health SystemALT No additional P-5'-P [Catalytic activity/Vol]31 U/LNINF - 40 U/L [facility] HospitalAnion gap [Moles/Vol]9 mmol/L5 - 15 mmol/LPrAdventHealth Porter Health SystemAST [Catalytic activity/Vol]36 U/LNINF - 41 U/[facility] SystemBilirubin [Mass/Vol]0.5 mg/dL0.3 - 1.2 mg/dLCleveland Clinic Marymount HospitalCalcium [Mass/Vol]8.9 mg/dL8.5 - 10.5 mg/dLCleveland Clinic Mary[facility] HospitalChloride [Moles/Vol] 103 mmol/L98 - 109 mmol/[facility] SystemCO2 [Moles/Vol]25 mmol/L22 - 32 mmol/[facility] SystemCreatinine [Mass/Vol]0.83 mg/dL0.70 - 1.20 mg/dL [facility] HospitalComment on above:METHOD TRACEABLE TO IDMS STANDARDEGFR Non-Race Dependent- [facility] SystemComment on above:eGFR not reported due to non-numeric value for Creatinine. Reported eGFR is based on the CKD-EPI 2020 equation that does not use a race coefficient. Glucose [Mass/Vol]131 mg/aIZzot62 - 99 mg/dLCleveland Clinic [facility] Hospital Interpretation and review of laboratory resultsAbnormalC[facility] Clinic [facility] Potassium [Moles/Vol]4.1 mmol/L3.5 - 5.0 mmol/[facility] SystemProtein [Mass/Vol]6.5 g/dL6.0 - 8.0 g/dLAtrium Healthodium [Moles/Vol]137 mmol/L134 - 146 mmol/[facility] SystemUrea nitrogen [Mass/Vol]18 mg/dL5 - 27 mg/dLTyler Memorial HospitalTHYROID PROFILE INCLUDES TSH FT4on 35-07-0045Xkff T4 [Mass/Vol]1.11 ng/dLNormal0.61-1.60Berger HospitalComment on above:Performed By: #### THYR ####[facility] ([facility])[address] [place] [address], [id number] VIRTSH3.30 uIU/mLNormal 0.49-4.67Berger HospitalComment on above:Performed By: #### THYR ####[facility] ([facility])[address] [place] [address], [id number] VIRThyroid profile includes TSH FT4on 34-01-0791Uulz T4 [Mass/Vol]1.11 ng/dL 0.61 - 1.60 ng/dLCleveland Clinic [facility] HospitalInterpretation and review of laboratory resultsNormalCritical access hospital Qn3.3 m[IU]/LProMedAscension Eagle River Memorial HospitalCBC WITH AUTO DIFFERENTIALon 13-61-1110Aoeu form neutrophils/100 WBC (Bld)5 %NormalProMayhill HospitalComment on above: Order Comment: See Springboard - Labs Due report.Result Comment: This is an appended report. These results have been appended to a previously preliminary verified report.Performed By: #### CBCA ####[facility] ([address], [id number] VIRCELLAVISION ATYPICAL LYMPHOCYTES RELATIVE PERCENT BY MANUAL COUNT19 %NormalProMayhill HospitalComment on above:Order Comment: See Springboard - Labs Due report.Result Comment: This is an appended report. These results have been appended to a previously preliminary verified report.Performed By: #### CBCA ####[facility] ([address], [id number] VIRCELLAVISION BASOPHILS ABSOLUTE COUNT (10*3/UL) BY MANUAL COUNT0.4 10*3/uLHigh0.0-0.2POhioHealth Hardin Memorial Hospital Comment on above:Order Comment: See Springboard - Labs Due report.Result Comment: This is an appended report. These results have been appended to a previously preliminary verified report.Performed By: #### CBCA ####[facility] ([address], [id number] VIR CELLAVISION BASOPHILS RELATIVE PERCENT BY MANUAL COUNT3 %NormalProMayhill HospitalComc.s. [facility] on above:Order Comment: See Springboard - Labs Due report. Result Comment: This is an appended report. These results have been appended to a previously preliminary verified report.Performed By: #### CBCA ####[facility] ([facility])[address] [place] [address], [id number] VIR CELLAVISION DIFFERENTIAL TYPEMANUAL DIFFERENTIALNormalProMayhill Hospital Comment on above:Order Comment: See Springboard - Labs Due report.Result Comment: This is an appended report. These results have been appended to a previously preliminary verified report.Performed By: #### CBCA ####[facility] ([address], [id number] VIR CELLAVISION EOSINOPHILS ABSOLUTE COUNT (10*3/UL) BY MANUAL COUNT0.3 10*3/uL Normal0.0-0.4Berger HospitalComc.s. [facility] on above:Order Comment: See Springboard - Labs Due report.Result Comment: This is an appended report. These results have been appended to a previously preliminary verified report.Performed By: #### CBCA ####[facility]Tr[facility] ([address], [id number] VIRCELLAVISION EOSINOPHILS PERCENT BY MANUAL COUNT2 %Normal Berger HospitalComc.s. [facility] on above:Order Comment: See Springboard - Labs Due report.Result Comment: This is an appended report. These results have been appended to a previously preliminary verified report.Performed By: #### CBCA ####[facility]ENTERTr[facility] ([facility])[address] [place] [address], [id number] VIRCELLAVISION WINN-JOLLY BODIES IN BLOOD BY LIGHT MICROSCOPY1+Normal [facility] on above:Order Comment: See Springboard - Labs Due report.Result Comment: This is an appended report. These results have been appended to a previously preliminary verified report.Performed By: #### CBCA ####[facility])[address] [place] [address], [id number] VIRCELLAVISION LYMPHOCYTES ABSOLUTE COUNT (10*3/UL) BY MANUAL COUNT3.7 10*3/uL High1.0-3.5PMercy Health St. [facility] on above:Order Comment: See Springboard - Labs Due report.Result Comment: This is an appended report. These results have been appended to a previously preliminary verified report.Performed By: #### CBCA ####[facility] ([facility])[address] [place] [address], [id number] VIRCELLAVISION LYMPHOCYTES RELATIVE PERCENT BY MANUAL COUNT 10 %NormalProBaylor Scott & White [facility] [place] on above:Order Comment: See Springboard - Labs Due report.Result Comment: This is an appended report. These results have been appended to a previously preliminary verified report.Performed By: #### CBCA ####[facility] ([address], [id number] VIRCELLAVISION MONOCYTES ABSOLUTE COUNT (10*3/UL) IN BLOOD BY MANUAL COUNT1.9 10*3/uLHigh0.0-0.9[facility] on above: Order Comment: See Springboard - Labs Due report.Result Comment: This is an appended report. These results have been appended to a previously preliminary verified report.Performed By: #### CBCA ####[facility] ([address], [id number] VIRCELLAVISION MONOCYTES RELATIVE PERCENT BY MANUAL COUNT15 %NormalProBaylor Scott & White Medical Center [facility] [place] on above: Order Comment: See Springboard - Labs Due report.Result Comment: This is an appended report. These results have been appended to a previously preliminary verified report.Performed By: #### CBCA ####[facility] ([address], [id number] VIRCELLAVISION NEUTROPHILS ABSOLUTE COUNT BY MANUAL COUNT6.5 10*3/uLNormal1.5-6.6ProBaylor Scott & White [facility] Center [facility] [place] on above:Order Comment: See Springboard - Labs Due report.Result Comment: This is an appended report. These results have been appended to a previously prelimi nary verified report.Performed By: #### CBCA ####[facility] ([facility])[address]FRESALEM [facility] HOSPITALT, [id number] VIRCELLAVISION NEUTROPHILS RELATIVE PERCENT BY MANUAL COUNT46 %NormalProBaylor Scott & White Medical Center – [place] on above:Order Comment: See Springboard - Labs Due report.Result Comment: This is an appended report. These results have been appended to a previously preliminary verified report.Performed By: #### CBCA ####[facility] ([facility])[address] [place], [place] [address]E.FRESAL[facility] HOSPITALT, [id number] VIRCELLAVISION NUCLEATED RED BLOOD CELLS IN BLOOD BY LIGHT EKBSSKOBAU4JcdaujRxnAaklhnDetwiler Memorial Hospital on above:Order Comment: See Springboard - Labs Due report.Result Comment: This is an appended report. These results have been appended to a previously preliminary verified report.Performed By: #### CBCA ####[facility] ([facility])[address] [place] [address] AVE.FRESAL[facility] HOSPITALT, [id number] VIRCELLAVISION POLYCHROMASIA IN BLOOD BY LIGHT MICROSCOPY1+NormalDetwiler Memorial Hospital on above:Order Comment: See Springboard - Labs Due report.Result Comment: This is an appended report. These results have been appended to a previously preliminary verified report.Performed By: #### CBCA ####[facility] ([facility])[address] [place] [address] AVE.[facility] HOSPITALT, [id number] VIRErythrocyte distribution width (RBC) [Ratio] 19.4 %High11.5-15[facility] on above:Order Comment: See Springboard - Labs Due report.Performed By: #### CBCA ####[facility]ENTERA [facility] ([facility])[address], [id number] VIRHematocrit (Bld) [Volume fraction]41.5 %Uidxst93-68YaeFekmcjDetwiler Memorial Hospital on above: Order Comment: See Springboard - Labs Due report.Performed By: #### CBCA ####[facility] ([address]ESOUT[facility], [id number] VIRHemoglobin (Bld) [Mass/Vol]13.6 g/mLOqlley34-32YuyEdlnyqBerger Hospital Comment on above:Order Comment: See Springboard - Labs Due report.Performed By: #### CBCA ####[facility] ([facility])[address] [place] [address] AVE.[place], [id number] VIRMCH (RBC) [Entitic mass]31.5 gpVnvidr29-82UqcPlyaaxBerger HospitalComc.[facility]. [facility] on above:Order Comment: See Springboard - Labs Due report.Performed By: #### CBCA ####[facility] ([address], [id number] VIRMCHC (RBC) [Mass/Vol]32.8 g/aFQghgja33-72 [facility] HospitalComment on above:Order Comment: See Springboard - Labs Due report.Performed By: #### CBCA ####[facility] ([address], [id number] VIRMCV (RBC) [Entitic vol]96 fLNormal 80-100Berger HospitalComc.s. [facility] on above:Order Comment: See Springboard - Labs Due report.Performed By: #### CBCA ####[facility] ([address], [id number] VIRPlatelet mean volume (Bld) [Entitic vol]10.1 fLNormal7-12PMercy Health St. [facility] on above:Order Comment: See Springboard - Labs Due report.Performed By: #### CBCA ####[facility] ([address]OUT[facility], [id number] VIRPlatelets (Bld) [#/Vol]370 10*3/sAOwkkbs761-227MhrQhgvye [facility]remont HospitalComment on above: Order Comment: See Springboard - Labs Due report.Performed By: #### CBCA ####[facility] ([facility])[address] [place] [address] AV.[place], [id number] VIRRBC COUNT4.32 X10E12/LNormal4.1-5.7Berger HospitalComment on above:Order Comment: See Springboard - Labs Due report.Performed By: #### CBCA ####[facility]ENTERA [facility] ([facility])[address] [place] [address], [id number] VIRWBC (Bld) [#/Vol]12.8 10*3/uLHigh4-11Berger HospitalComment on above:Order Comment: See Springboard - Labs Due report.Performed By: #### CBCA ####[facility] ([address], [id number] VIRCBC auto differentialon 63-81-1408Ghki form neutrophils/100 WBC (Bld)5 % [facility] HospitalComment on above:This is an appended report. These results have been appended to a previously preliminary verified report.Basophils (Bld) [#/Vol]0.4 10*3/uLHigh0.0 - 0.2 10*3/uLCleveland Clinic Mary[facility] HospitalComment on above:This is an appended report. These results have been appended to a previously preliminary verified report.Basophils/100 WBC (Bld)3 %[facility] HospitalComment on above:This is an appended report. These results have been appended to a previously preliminary verified report.Differential cell count method Nom (Bld)MANUAL DIFFERENTIALCleveland Clinic Mary[facility] HospitalComment on above:This is an appended report. These results have been appended to a previously preliminary verified report.Eosinophils (Bld) [#/Vol]0.3 10*3/uL0.0 - 0.4 10*3/uLBrown Memorial Hospital SystemComment on above:This is an appended report. These results have been appended to a previously preliminary verified report. Eosinophils/100 WBC (Bld)2 %[facility] HospitalComment on above:This is an appended report. These results have been appended to a previously preliminary verified report.Erythrocyte distribution width (RBC) [Ratio]19.4 %High11.5 - 15 %[facility] HospitalHematocrit (Bld) [Volume fraction]41.5 %39 - 50 % [facility] HospitalHemoglobin (Bld) [Mass/Vol]13.6 g/dL13 - 17 g/dLCleveland Clinic Marymount HospitalHowell-Aguilares bodies LM Ql (Bld)1+[facility] HospitalComment on above:This is an appended report. These results have been appended to a previously preliminary verified report.Interpretation and review of laboratory resultsAbnormalCleveland Clinic Marymount HospitalLymphocytes (Bld) [#/Vol]3.7 10*3/uLHigh 1.0 - 3.5 10*3/uLCleveland Clinic Mary[facility] HospitalComment on above:This is an appended report. These results have been appended to a previously preliminary verified re port.MCH (RBC) [Entitic mass]31.5 pg27 - 34 [facility] HospitalMCHC (RBC) [Mass/Vol]32.8 g/dL32 - 36 g/dLCleveland Clinic Mary[facility] HospitalMCV (RBC) [Entitic vol]96 fL80 - 100 [facility] SpringsMonocytes (Bld) [#/Vol]1.9 10*3/uLHigh0.0 - 0.9 10*3/uLCleveland Clinic Mary[facility] HospitalComment on above:This is an appended report. These results have been appended to a previously preliminary verified report. Monocytes/100 WBC (Bld)15 %[facility] HospitalComc.s. [facility] on above:This is an appended report. These results have been appended to a previously preliminary verified report.Neutrophils (Bld) [#/Vol]6.5 10*3/uL1.5 - 6.6 10*3/uLCleveland Clinic Mary[facility] HospitalComment on above:This is an appended report. These results have been appended to a previously preliminary verified report.Neutrophils/100 WBC (Bld)46 %[facility] HospitalComc.s. [facility] on above:This is an appended report. These results have been appended to a previously preliminary verified report. Nucleated RBC/100 WBC (Bld) [Ratio]3 %[facility] HospitalComment on above: This is an appended report. These results have been appended to a previously preliminary verified report.Platelet mean volume (Bld) [Entitic vol]10.1 fL7 - 12 [facility] SpringsPlatelets (Bld) [#/Vol]370 10*3/uLCleveland Clinic Mary[facility] HospitalPolychromasia LM Ql (Bld)1+[facility] HospitalComment on above:This is an appended report. These results have been appended to a previously preliminary verified report.RBC (Bld) [#/Vol]4.32 10*6/[facility] Variant lymphocytes/100 WBC (Bld)10 %[facility] HospitalComment on above: This is an appended report. These results have been appended to a previously preliminary verified report.Variant lymphocytes/100 WBC (Bld)19 %[facility] HospitalComment on above:This is an appended report. These results have been appended to a previously preliminary verified report.WBC LM Ql (Sput)12.8 [facility] Medical CenterCOMPREHENSIVE METABOLIC PANEL on 99-28-4953Sgnerun [Mass/Vol]3.6 g/dLNormal3.2-5.3POhioHealth Hardin Memorial Hospital Comment on above:Order Comment: See Springboard - Labs Due reportPerformed By: #### CMP ####[facility] ([address] [place] [address] VIRALP [Catalytic activity/Vol]90 U/YNyfvct44-470ZzjAiffnbBerger HospitalComment on above:Order Comment: See Springboard - Labs Due reportPerformed By: #### CMP ####[facility] ([address] [address] VIRALT [Catalytic activity/Vol]41 U/LHigh<=40 Berger HospitalComment on above:Order Comment: See Springboard - Labs Due reportPerformed By: #### CMP ####[facility] ([address] [place] [address] VIRAnion gap [Moles/Vol]8 mmol/LNormal 5-15Berger HospitalComment on above:Order Comment: See Springboard - Labs Due reportPerformed By: #### CMP ####[facility] ([address] [place] [address] VIRAST [Catalytic activity/Vol]46 U/L High<=41ProMayhill HospitalComment on above:Order Comment: See Springboard - Labs Due reportPerformed By: #### CMP ####[facility] ([address] [place] [address] VIRBilirubin [Mass/Vol]0.3 mg/dLNormal0.3-1.2POhioHealth Hardin Memorial HospitalComment on above:Order Comment: See Springboard - Labs Due reportPerformed By: #### CMP ####[facility] ([address] [place] [address] VIRCalcium [Mass/Vol]9.2 mg/dLNormal8.5-10.5POhioHealth Hardin Memorial HospitalComment on above: Order Comment: See Springboard - Labs Due reportPerformed By: #### CMP ####[facility] ([address], [place] [address] VIRChloride [Moles/Vol]102 mmol/XQlhtyk25-476YadBievdfBerger Hospital Comment on above:Order Comment: See Springboard - Labs Due reportPerformed By: #### CMP ####[facility] ([address] [place] [address] VIRCO2 [Moles/Vol]27 mmol/JYrxhsa38-16ApaSrzfdeOhioHealth Hardin Memorial HospitalComment on above:Order Comment: See Springboard - Labs Due report Performed By: #### CMP ####[facility] ([address] [place] [address] VIRCreatinine [Mass/Vol]0.93 mg/dLNormal0.70-1.20 [facility] HospitalComment on above:Order Comment: See Springboard - Labs Due reportResult Comment: METHOD TRACEABLE TO IDMS STANDARDPerformed By: #### CMP ####[facility] ([facility])[address] [place] [address] VIREGFR (CKD-EPI) NON-RACE DEPENDENT>^90Normal>=60ProMayhill HospitalComment on above:Order Comment: See Springboard - Labs Due reportResult Comment: eGFR not reported due to non-numeric value for Creatinine.EGFR not calculated due to patient's gender not being defined.Reported eGFR is based on theCKD-EPI 2020 equation that doesnotuse a race coefficient.Performed By: #### CMP ####[facility] ([address] [address] VIRGlucose [Mass/Vol]161 mg/yWEuwb06-40KlxKsroplMayhill HospitalComment on above:Order Comment: See Springboard - Labs Due reportPerformed By: #### CMP ####[facility] ([address] [address] VIRPotassium [Moles/Vol]4.3 mmol/LNormal3.5-5.0[facility] Comment on above:Order Comment: See Springboard - Labs Due reportPerformed By: #### CMP ####[facility] ([address] [address] VIRProtein [Mass/Vol]6.6 g/dLNormal6.0-8.0Berger HospitalComment on above:Order Comment: See Springboard - Labs Due reportPerformed By: #### CMP ####[facility] ([address] [address] VIRSodium [Moles/Vol]137 mmol/NHcikfk644-069 Berger HospitalComment on above:Order Comment: See Springboard - Labs Due reportPerformed By: #### CMP ####[facility] ([facility])[address] [place] [address] VIRUrea nitrogen [Mass/Vol]18 mg/dL Normal-Berger HospitalComment on above:Order Comment: See Springboard - Labs Due reportPerformed By: #### CMP ####[facility] ([facility])[address] [place] [address] VIRComprehensive metabolic panelon 80-67-8044Uwolqdt [Mass/Vol]3.6 g/dL3.2 - 5.3 g/dLFostoria City Hospital Health SystemALP [Catalytic activity/Vol]90 U/L39 - 130 U/[facility] SystemALT No additional P-5'-P [Catalytic activity/Vol]41 U/LHighNINF - 40 U/L [facility] HospitalAnion gap [Moles/Vol]8 mmol/L5 - 15 mmol/LPrAdventHealth Porter Health SystemAST [Catalytic activity/Vol]46 U/LHighNINF - 41 U/[facility] Health SystemBilirubin [Mass/Vol]0.3 mg/dL0.3 - 1.2 mg/dLFostoria City Hospital Health SystemCalcium [Mass/Vol]9.2 mg/dL8.5 - 10.5 mg/dLBrown Memorial Hospital SystemChloride [Moles/Vol] 102 mmol/L98 - 109 mmol/[facility] Health SystemCO2 [Moles/Vol]27 mmol/L22 - 32 mmol/[facility] Health SystemCreatinine [Mass/Vol]0.93 mg/dL0.70 - 1.20 mg/dL [facility] HospitalComment on above:METHOD TRACEABLE TO IDMS STANDARDEGFR Non-Race Dependent- [facility] SystemComment on above:eGFR not reported due to non-numeric value for Creatinine. EGFR not calculated due to patient's gender not being defined. Reported eGFR is based on the CKD-EPI 202 equation that does not use a race coefficient. Glucose [Mass/Vol]161 mg/qKFnfp13 - 99 mg/dLCleveland Clinic Marymount Hospital Interpretation and review of laboratory resultsAbnormalC[facility] Potassium [Moles/Vol]4.3 mmol/L3.5 - 5.0 mmol/[facility] Health SystemProtein [Mass/Vol]6.6 g/dL6.0 - 8.0 g/dLProProtestant Deaconess Hospitalodium [Moles/Vol]137 mmol/L134 - 146 mmol/[facility] SystemUrea nitrogen [Mass/Vol]18 mg/dL5 - 27 mg/dLProAdena Fayette Medical CenterProBlanchard Valley Health System SystemTHYROID PROFILE INCLUDES TSH FT4on 37-85-7699Jjfv T4 [Mass/Vol]1.07 ng/dLNormal0.61-1.60Berger HospitalComment on above:Performed By: #### THYR ####[facility] ([address] VIRTSH4.17 uIU/mLNormal 0.49-4.67Berger HospitalComment on above:Performed By: #### THYR ####[facility] ([address] VIRThyroid profile includes TSH FT4on 70-52-7429Pixn T4 [Mass/Vol]1.07 ng/dL 0.61 - 1.60 ng/dLCleveland Clinic Marymount HospitalInterpretation and review of laboratory resultsNormalCritical access hospital Qn4.17 m[IU]/[facility] HospitalCBC WITH AUTO DIFFERENTIALon 93-02-7844Pnqc form neutrophils/100 WBC (Bld)5 %NormalBerger HospitalComc.s. [facility] on above: Order Comment: See Springboard - Labs Due report.Result Comment: This is an appended report. These results have been appended to a previously preliminary verified report.Performed By: #### CBCA ####[facility] ([address] VIRCELLAVISION ATYPICAL LYMPHOCYTES RELATIVE PERCENT BY MANUAL COUNT2 %NormalProMayhill HospitalComc.s. [facility] on above:Order Comment: See Springboard - Labs Due report.Result Comment: This is an appended report. These results have been appended to a previously preliminary verified report.Performed By: #### CBCA ####[facility]ENTERTr[facility] ([facility])[address] [place] [address], [id number] VIRCELLAVISION DIFFERENTIAL TYPEMANUAL DIFFERENTIALNormalProBaylor Scott & White [facility] on above:Order Comment: See Springboard - Labs Due report.Result Comment: This is an appended report. These results have been appended to a previously preliminary verified report. Performed By: #### CBCA ####[facility]ENTERTrang [facility] ([facility])[address] [place] [address], [id number] VIRCELLAVISION EOSINOPHILS ABSOLUTE COUNT (10*3/UL) BY MANUAL COUNT0.3 10*3/uLNormal0.0-0.4[facility] on above: Order Comment: See Springboard - Labs Due report.Result Comment: This is an appended report. These results have been appended to a previously preliminary verified report.Performed By: #### CBCA ####[facility]ENTERTr[facility] ([facility])[address] [place] [address], [id number] VIRCELLAVISION EOSINOPHILS PERCENT BY MANUAL COUNT2 %NormalProBaylor Scott & White Medical Center – [place] on above:Order Comment: See Springboard - Labs Due report.Result Comment: This is an appended report. These results have been appended to a previously preliminary verified report. Performed By: #### CBCA ####[facility]ENTERTrang [facility] ([facility])[address] [place] [address], [id number] VIRCELLAVISION LYMPHOCYTES ABSOLUTE COUNT (10*3/UL) BY MANUAL COUNT9.5 10*3/uLHigh1.0-3.5PMercy Health St. [facility] on above: Order Comment: See Springboard - Labs Due report.Result Comment: This is an appended report. These results have been appended to a previously preliminary verified report.Performed By: #### CBCA ####[facility] ([facility])[address] [place] [address], [id number] VIRCELLAVISION LYMPHOCYTES RELATIVE PERCENT BY MANUAL COUNT57 %NormalDetwiler Memorial Hospital on above: Order Comment: See Springboard - Labs Due report.Result Comment: This is an appended report. These results have been appended to a previously preliminary verified report.Performed By: #### CBCA ####[facility]ENTERTrang [facility] ([facility])[address] [place] [address], [id number] VIRCELLAVISION METAMYELOCYTES RELATIVE PERCENT BY MANUAL COUNT1 %NormalDetwiler Memorial Hospital on above:Order Comment: See Springboard - Labs Due report.Result Comment: This is an appended report. These results have been appended to a previously preliminary verified report.Performed By: #### CBCA ####[facility]ENTERTrang [facility] ([facility])[address] [place] [address], [id number] VIRCELLAVISION MONOCYTES ABSOLUTE COUNT (10*3/UL) IN BLOOD BY MANUAL COUNT1.0 10*3/uLHigh0.0-0.9[facility] on above:Order Comment: See Springboard - Labs Due report.Result Comment: This is an appended report. These results have been appended to a previously preliminary verified report.Performed By: #### CBCA ####[facility]ENTERTrang [facility] ([facility])[address] [place] [address] [id number] VIR CELLAVISION MONOCYTES RELATIVE PERCENT BY MANUAL COUNT6 %NormalDetwiler Memorial Hospital on above:Order Comment: See Springboard - Labs Due report. Result Comment: This is an appended report. These results have been appended to a previously preliminary verified report.Performed By: #### CBCA ####[facility]ENTERTrang [facility] ([facility])[address] [place] [address], [id number] VIR CELLAVISION NEUTROPHILS ABSOLUTE COUNT BY MANUAL COUNT5.2 10*3/uLNormal1.5-6.6 [facility] on above:Order Comment: See Springboard - Labs Due report.Result Comment: This is an appended report. These results have been appended to a previously preliminary verified report.Performed By: #### CBCA ####[facility] ([facility])[address], [id number] VIRCELLAVISION NEUTROPHILS RELATIVE PERCENT BY MANUAL COUNT27 %NormalDetwiler Memorial Hospital on above:Order Comment: See Springboard - Labs Due report.Result Comment: This is an appended report. These results have been appended to a previously preliminary verified report.Performed By: #### CBCA ####[facility] ([facility])[address] [place] [address].[place], [id number] VIRCELLAVISION NUCLEATED RED BLOOD CELLS IN BLOOD BY LIGHT QVKODIBPWZ8Dzhhsq [facility] on above:Order Comment: See Springboard - Labs Due report.Result Comment: This is an appended report. These results have been appended to a previously preliminary verified report.Performed By: #### CBCA ####[facility] ([address], [id number] VIRErythrocyte distribution width (RBC) [Ratio]19.9 %High11.5-15[facility] on above:Order Comment: See Springboard - Labs Due report.Performed By: #### CBCA ####[facility] ([address], [id number] VIRHematocrit (Bld) [Volume fraction]40.4 % Pjvsnd63-16VpfAgemrfDetwiler Memorial Hospital on above:Order Comment: See Springboard - Labs Due report.Performed By: #### CBCA ####[facility] ([facility])[address] [place], [place] [address]E.[place], [id number] VIRHemoglobin (Bld) [Mass/Vol]13.2 g/gZSldmku85-24YowOyzryjDetwiler Memorial Hospital on above:Order Comment: See Springboard - Labs Due report.Performed By: #### CBCA ####[facility] ([address], [id number] VIRMCH (RBC) [Entitic mass]31.1 zyBlibql35-13HhlDhiwrgBerger HospitalComc.s. [facility] on above: Order Comment: See Springboard - Labs Due report.Performed By: #### CBCA ####[facility] ([facility])[address] [place] [address] AVE.[place], [id number] VIRMCHC (RBC) [Mass/Vol]32.7 g/kBDtyqzd99-76KonDmrwskBerger HospitalComc.s. [facility] on above:Order Comment: See Springboard - Labs Due report.Performed By: #### CBCA ####[facility] ([facility])[address] [place] [address] AVE.[place], [id number] VIRMCV (RBC) [Entitic vol]95 vHWrloae46-262DwlBdnlduBerger HospitalComc.s. [facility] on above:Order Comment: See Springboard - Labs Due report.Performed By: #### CBCA ####[facility] ([address], [id number] VIRPlatelet mean volume (Bld) [Entitic vol]9.9 fLNormal7-12Pro[facility] State HospitalComc.s. [facility] on above:Order Comment: See Springboard - Labs Due report. Performed By: #### CBCA ####[facility] ([address], [id number] VIRPlatelets (Bld) [#/Vol]321 10*3/zTAmlnjz702-110 [facility] on above:Order Comment: See Springboard - Labs Due report.Performed By: #### CBCA ####[facility] ([address], [id number] VIRRBC COUNT4.24 X10E12/LNormal4.1-5.7 [facility] on above:Order Comment: See Springboard - Labs Due report.Performed By: #### CBCA ####[facility] ([address], [id number] VIRWBC (Bld) [#/Vol]16.2 10*3/uLHigh 4-11Berger HospitalComment on above:Order Comment: See Springboard - Labs Due report.Performed By: #### CBCA ####[facility] ([facility])[address] [place] [address] AVE.[place], [id number] VIRCBC auto differentialon 11-09-2024 Band form neutrophils/100 WBC (Bld)5 %[facility] HospitalComment on above: This is an appended report. These results have been appended to a previously preliminary verified report.Differential cell count method Nom (Bld)MANUAL DIFFERENTIALCleveland Clinic Marymount HospitalComment on above:This is an appended report. These results have been appended to a previously preliminary verified report. Eosinophils (Bld) [#/Vol]0.3 10*3/uL0.0 - 0.4 10*3/uLBrown Memorial Hospital System Comment on above:This is an appended report. These results have been appended to a previously preliminary verified report.Eosinophils/100 WBC (Bld)2 %[facility] HospitalComment on above:This is an appended report. These results have been appended to a previously preliminary verified report.Erythrocyte distribution width (RBC) [Ratio]19.9 %High11.5 - 15 %[facility] Hematocrit (Bld) [Volume fraction]40.4 %39 - 50 %[facility] Hemoglobin (Bld) [Mass/Vol]13.2 g/dL13 - 17 g/dLCleveland Clinic Marymount Hospital Interpretation and review of laboratory resultsAbnormalC[facility] Clinic [facility] Hospital Lymphocytes (Bld) [#/Vol]9.5 10*3/uLHigh1.0 - 3.5 10*3/uLBrown Memorial Hospital System Comment on above:This is an appended report. These results have been appended to a previously preliminary verified report.MCH (RBC) [Entitic mass]31.1 pg27 - 34 [facility] HospitalMCHC (RBC) [Mass/Vol]32.7 g/dL32 - 36 g/dLCleveland Clinic Marymount HospitalMCV (RBC) [Entitic vol]95 fL80 - 100 [facility] Metamyelocytes/100 WBC (Bld)1 %[facility] HospitalComment on above:This is an appended report. These results have been appended to a previously preliminary verified report.Monocytes (Bld) [#/Vol]1 10*3/uLHigh0.0 - 0.9 10*3/[facility] HospitalComment on above:This is an appended report. These results have been appended to a previously preliminary verified report.Monocytes/100 WBC (Bld)6 %[facility] HospitalComment on above:This is an appended report. These results have been appended to a previously preliminary verified report. Neutrophils (Bld) [#/Vol]5.2 10*3/uL1.5 - 6.6 10*3/[facility] Comment on above:This is an appended report. These results have been appended to a previously preliminary verified report.Neutrophils/100 WBC (Bld)27 %[facility] HospitalComment on above:This is an appended report. These results have been appended to a previously preliminary verified report.Nucleated RBC/100 WBC (Bld) [Ratio]1 %[facility] HospitalComment on above:This is an appended report. These results have been appended to a previously preliminary verified re port.Platelet mean volume (Bld) [Entitic vol]9.9 fL7 - 12 [facility] SpringsPlatelets (Bld) [#/Vol]321 10*3/[facility] Memorial HospitalRBC (Bld) [#/Vol] 4.24 10*6/[facility] HospitalVariant lymphocytes/100 WBC (Bld)57 % [facility] HospitalComment on above:This is an appended report. These results have been appended to a previously preliminary verified report.Variant lymphocytes/100 WBC (Bld)2 %[facility] HospitalComc.s. [facility] on above:This is an appended report. These results have been appended to a previously preliminary verified report.WBC LM Ql (Sput)16.2HUniversity of Pennsylvania Health SystemCOMPREHENSIVE METABOLIC PANELon 44-51-4733Bjrwyxr [Mass/Vol]3.7 g/dLNormal 3.2-5.3POhioHealth Hardin Memorial HospitalComment on above:Order Comment: See Springboard - Labs Due reportPerformed By: #### CMP ####[facility] ([facility] [place] [address] VIRALP [Catalytic activity/Vol]93 U/L Mvrbkx32-641QgtSwvfacMayhill HospitalComment on above:Order Comment: See Springboard - Labs Due reportPerformed By: #### CMP ####[facility] ([facility])[address] [place], [place] [address] [place] [address] VIRALT [Catalytic activity/Vol]38 U/LNormal<=40ProMayhill HospitalComment on above:Order Comment: See Springboard - Labs Due reportPerformed By: #### CMP ####[facility] ([facility])[address] [place], [place] [address] [address] VIRAnion gap [Moles/Vol]14 mmol/LNormal5-15ProMayhill HospitalComment on above:Order Comment: See Springboard - Labs Due reportPerformed By: #### CMP ####[facility] ([address] [place] [address] VIRAST [Catalytic activity/Vol]36 U/LNormal<=41ProMayhill HospitalComment on above:Order Comment: See Springboard - Labs Due reportPerformed By: #### CMP ####[facility] ([address], [place] [address] VIRBilirubin [Mass/Vol]0.6 mg/dLNormal0.3-1.2POhioHealth Hardin Memorial Hospital Comment on above:Order Comment: See Springboard - Labs Due reportPerformed By: #### CMP ####[facility] ([facility])[address] [place], [place] [address]T [address].[facility] [place] [address] VIRCalcium [Mass/Vol]9.5 mg/dLNormal8.5-10.5POhioHealth Hardin Memorial HospitalComment on above:Order Comment: See Springboard - Labs Due reportPerformed By: #### CMP ####[facility] ([facility])[address] [place] [address] [place] [address] VIRChloride [Moles/Vol]97 mmol/WSlr91-765 [facility] HospitalComc.s. [facility] on above:Order Comment: See Springboard - Labs Due reportPerformed By: #### CMP ####[facility] ([facility])[address] [place] [address] [place] [address] VIRCO2 [Moles/Vol]25 mmol/JMuybjz87-67 [facility] HospitalComc.s. [facility] on above:Order Comment: See Springboard - Labs Due reportPerformed By: #### CMP ####[facility] ([address] [place] [address] VIRCreatinine [Mass/Vol]0.90 mg/dL Normal0.70-1.20Ber[facility] HospitalComc.s. [facility] on above:Order Comment: See Springboard - Labs Due reportResult Comment: METHOD TRACEABLE TO IDMS STANDARD Performed By: #### CMP ####[facility] ([facility])[address] [place] [address] [place] [address] VIREGFR (CKD-EPI) NON-RACE DEPENDENT>^90Normal>=60 [facility] on above:Order Comment: See Springboard - Labs Due reportResult Comment: eGFR not reported due to non-numeric value for Creatinine.Reported eGFR is based ontheCKD-EPI 2020 equation that doesnot use a race coefficient.Performed By: #### CMP ####[facility] ([facility])[address] [place] [address] [place] [address] VIRGlucose [Mass/Vol]166 mg/dLHigh 65-99ProMayhill HospitalComc.s. [facility] on above:Order Comment: See Springboard - Labs Due reportPerformed By: #### CMP ####[facility] ([facility])[address] [place] [address] [place] [address] VIRPotassium [Moles/Vol]4.3 mmol/L Normal3.5-5.0ProMedica Aberdeen HospitalComment on above:Order Comment: See Springboard - Labs Due reportPerformed By: #### CMP ####[facility] ([facility])[address] [place] [address] [place] [address] VIRProtein [Mass/Vol]6.7 g/dLNormal6.0-8.0ProMayhill HospitalComment on above:Order Comment: See Springboard - Labs Due reportPerformed By: #### CMP ####[facility] ([facility])[address] [place] [address] [place] [address] VIRSodium [Moles/Vol]136 mmol/RVxwhrd671-095NxoNitdad Fremont HospitalComment on above: Order Comment: See Springboard - Labs Due reportPerformed By: #### CMP ####[facility] ([facility])[address] [place] [address].[place], [place] [address] VIRUrea nitrogen [Mass/Vol]16 mg/dLNormal5-27[facility] Comment on above:Order Comment: See Springboard - Labs Due reportPerformed By: #### CMP ####[facility] ([facility])[address] [place] [address] VIRComprehensive metabolic panelon 74-37-3153Jmfwyhz [Mass/Vol]3.7 g/dL3.2 - 5.3 g/dLProMedica Health SystemALP [Catalytic activity/Vol]93 U/L39 - 130 U/LProMedica Health SystemALT No additional P-5'-P [Catalytic activity/Vol]38 U/LNINF - 40 U/LProMedica Health SystemAnion gap [Moles/Vol]14 mmol/L5 - 15 mmol/LProMedica Health SystemAST [Catalytic activity/Vol]36 U/LNINF - 41 U/LProMedica Health SystemBilirubin [Mass/Vol]0.6 mg/dL0.3 - 1.2 mg/dLProMedica Health SystemCalcium [Mass/Vol]9.5 mg/dL8.5 - 10.5 mg/dLProMedica Health SystemChloride [Moles/Vol]97 mmol/LLow98 - 109 mmol/L [facility] HospitalCO2 [Moles/Vol]25 mmol/L22 - 32 mmol/LProMedica Aultman [facility] Hospital SystemCreatinine [Mass/Vol]0.9 mg/dL0.70 - 1.20 mg/dLCleveland Clinic [facility] Hospital Comment on above:METHOD TRACEABLE TO IDMS STANDARDEGFR Non-Race Dependent- PINF [facility] HospitalComment on above:eGFR not reported due to non-numeric value for Creatinine. Reported eGFR is based on the CKD-EPI 2020 equation that does not use a race coefficient. Glucose [Mass/Vol]166 mg/wVQhtp84 - 99 mg/dLCleveland Clinic [facility] Hospital Interpretation and review of laboratory resultsAbnoScionHealth Potassium [Moles/Vol]4.3 mmol/L3.5 - 5.0 mmol/[facility] HospitaloMedd.w. [facility] Health SystemProtein [Mass/Vol]6.7 g/dL6.0 - 8.0 g/dLAtrium Healthodium [Moles/Vol]136 mmol/L134 - 146 mmol/[facility] SystemUrea nitrogen [Mass/Vol]16 mg/dL5 - 27 mg/dLTyler Memorial HospitalTHYROID PROFILE INCLUDES TSH FT4on 64-21-8565Xyig T4 [Mass/Vol]0.93 ng/dLNormal0.61-1.60Berger HospitalComment on above:Performed By: #### THYR ####[facility] ([place] [address] VIRTSH5.03 uIU/mLHigh 0.49-4.67ProMayhill HospitalComment on above:Performed By: #### THYR ####[facility]PAR[facility]ITALA [facility] ([address] VIRThyroid profile includes TSH FT4on 78-45-2703Zkum T4 [Mass/Vol]0.93 ng/dL 0.61 - 1.60 ng/dLCleveland Clinic Marymount HospitalInterpretation and review of laboratory resultsAbnoScionHealthTS Qn5.03 m[IU]/[facility]– MilwaukeeCB WITH AUTO DIFFERENTIALon 14-05-3205UABQSAKWPPB ATYPICAL LYMPHOCYTES RELATIVE PERCENT BY MANUAL COUNT17 %[facility] HospitalComc.s. [facility] on above:Order Comment: See Springboard - Labs Due report. Performed By: #### CBCA ####[facility] ([facility])[address] [place] [address] AV.[place], [id number] VIRCELLAVISION DIFFERENTIAL TYPECELLAVISION DIFFERENTIALNormalBerger HospitalComment on above:Order Comment: See Springboard - Labs Due report.Performed By: #### CBCA ####[facility] ([address] [id number] VIRCELLAVISION ELLIPTOCYTES IN BLOOD BY LIGHT MICROSCOPY1+[facility] Comment on above:Order Comment: See Springboard - Labs Due report.Performed By: #### CBCA ####[facility] ([address], [id number] VIRCELLAVISION HYPOCHROMIA IN BLOOD BY LIGHT MICROSCOPY1+ [facility] HospitalComment on above:Order Comment: See Springboard - Labs Due report.Performed By: #### CBCA ####[facility] ([address] [id number] VIRCELLAVISION LYMPHOCYTES ABSOLUTE COUNT (10*3/UL) BY MANUAL COUNT6.0 10*3/uLHigh1.0-3.5PGlenwood Regional Medical Centerica Patton State HospitalComc.s. [facility] on above:Order Comment: See Springboard - Labs Due report. Performed By: #### CBCA ####[facility] ([address] [id number] VIRCELLAVISION LYMPHOCYTES RELATIVE PERCENT BY MANUAL COUNT18 %[facility] HospitalComc.s. [facility] on above:Order Comment: See Springboard - Labs Due report.Performed By: #### CBCA ####[facility] ([address], [id number] VIRCELLAVISION MONOCYTES ABSOLUTE COUNT (10*3/UL) IN BLOOD BY MANUAL COUNT2.1 10*3/uLHigh 0.0-0.9[facility] on above:Order Comment: See Springboard - Labs Due report.Performed By: #### CBCA ####[facility] ([address] [place], [id number] VIRCELLAVISION MONOCYTES RELATIVE PERCENT BY MANUAL COUNT13 %NormalProBaylor Scott & White Medical Center – [place] on above:Order Comment: See Springboard - Labs Due report.Performed By: #### CBCA ####[facility] ([address], [id number] VIRCELLAVISION MYELOCYTE RELATIVE PERCENT BY MANUAL COUNT1 %[facility] on above:Order Comment: See Springboard - Labs Due report.Performed By: #### CBCA ####[facility] ([address], [id number] VIRCELLAVISION NEUTROPHILS ABSOLUTE COUNT BY MANUAL COUNT8.5 10*3/uLHigh1.5-6.6[facility] on above: Order Comment: See Springboard - Labs Due report.Performed By: #### CBCA ####[facility] ([address], [id number] VIRCELLAVISION NEUTROPHILS RELATIVE PERCENT BY MANUAL COUNT51 %NormalProBaylor Scott & White [facility] Center – [facility] on above:Order Comment: See Springboard - Labs Due report.Performed By: #### CBCA ####[facility] ([address], [id number] VIRCELLAVISION NUCLEATED RED BLOOD CELLS IN BLOOD BY LIGHT AROCTQCRAT3RkfltxKlcFsfjfoDetwiler Memorial Hospital on above:Order Comment: See Springboard - Labs Due report.Performed By: #### CBCA ####[facility] ([address], [id number] VIRErythrocyte distribution width (RBC) [Ratio]20.9 %High11.5-15[facility] HospitalComc.s. [facility] on above:Order Comment: See Springboard - Labs Due report.Performed By: #### CBCA ####[facility] ([address], [id number] VIRHematocrit (Bld) [Volume fraction]41.6 % Pdowcg33-28EtxRoeyinMayhill HospitalComc.s. [facility] on above:Order Comment: See Springboard - Labs Due report.Performed By: #### CBCA ####[facility] ([address], [id number] VIRHemoglobin (Bld) [Mass/Vol]13.9 g/sNLlzgea68-62JdbMkaasoMayhill HospitalComc.s. [facility] on above:Order Comment: See Springboard - Labs Due report.Performed By: #### CBCA ####[facility] ([address], [id number] VIRMCH (RBC) [Entitic mass]31.5 xgRmsefx70-61CnzVmgtbpBerger HospitalComc.s. [facility] on above: Order Comment: See Springboard - Labs Due report.Performed By: #### CBCA ####[facility] ([address], [id number] VIRMCHC (RBC) [Mass/Vol]33.4 g/fNXnkgcp24-61JwpQtnzjrMayhill HospitalComc.s. [facility] on above:Order Comment: See Springboard - Labs Due report.Performed By: #### CBCA ####[facility] ([address], [id number] VIRMCV (RBC) [Entitic vol]94 nRBxidne01-479ErxZjovjg [facility] HospitalComc.[facility] on above:Order Comment: See Springboard - Labs Due report.Performed By: #### CBCA ####[facility] ([address], [id number] VIRPlatelet mean volume (Bld) [Entitic vol]9.8 fLNormal7-12POhioHealth Hardin Memorial HospitalComment on above:Order Comment: See Springboard - Labs Due report. Performed By: #### CBCA ####[facility] ([address], [id number] VIRPlatelets (Bld) [#/Vol]365 10*3/hSJsxjtn255-086 Berger HospitalComment on above:Order Comment: See Springboard - Labs Due report.Performed By: #### CBCA ####[facility] ([address], [id number] VIRRBC COUNT4.40 X10E12/LNormal4.1-5.7 [facility] HospitalComment on above:Order Comment: See Springboard - Labs Due report.Performed By: #### CBCA ####[facility] ([address], [id number] VIRWBC (Bld) [#/Vol]16.7 10*3/uLHigh 4-11[facility] HospitalComc.s. [facility] on above:Order Comment: See Springboard - Labs Due report.Performed By: #### CBCA ####[facility] ([address], [id number] VIRCOMPREHENSIVE METABOLIC PANELon 33-05-4738Xwhvrlf [Mass/Vol]3.7 g/dLNormal3.2-5.3POhioHealth Hardin Memorial Hospital Comment on above:Order Comment: See Springboard - Labs Due reportPerformed By: #### CMP ####[facility] ([facility])[address] [place], [place] [address]E.[place] [address] VIRALP [Catalytic activity/Vol]92 U/OTvgkpa59-071OvbTknjrkBerger HospitalComment on above:Order Comment: See Springboard - Labs Due reportPerformed By: #### CMP ####[facility] ([facility] [address] [address] VIRALT [Catalytic activity/Vol]39 U/LNormal<=40 Berger HospitalComment on above:Order Comment: See Springboard - Labs Due reportPerformed By: #### CMP ####[facility] ([place] [address] [address] VIRAnion gap [Moles/Vol]6 mmol/LNormal 5-15ProMayhill HospitalComment on above:Order Comment: See Springboard - Labs Due reportPerformed By: #### CMP ####[facility] ([address] [place] [address] VIRAST [Catalytic activity/Vol]47 U/L High<=41ProMayhill HospitalComment on above:Order Comment: See Springboard - Labs Due reportPerformed By: #### CMP ####[facility] ([address] [address] VIRBilirubin [Mass/Vol]0.4 mg/dLNormal0.3-1.2POhioHealth Hardin Memorial HospitalComment on above:Order Comment: See Springboard - Labs Due reportPerformed By: #### CMP ####[facility] ([address] [address] VIRCalcium [Mass/Vol]9.1 mg/dLNormal8.5-10.5POhioHealth Hardin Memorial HospitalComment on above: Order Comment: See Springboard - Labs Due reportPerformed By: #### CMP ####[facility] ([address] [address] VIRChloride [Moles/Vol]101 mmol/JUmfuns93-790KhzJgryhcMayhill Hospital Comment on above:Order Comment: See Springboard - Labs Due reportPerformed By: #### CMP ####[facility] ([address] [place] [address] VIRCO2 [Moles/Vol]27 mmol/WAodmfm06-66NwqPvjkxt [facility] HospitalComment on above:Order Comment: See Springboard - Labs Due report Performed By: #### CMP ####[facility] ([address] [place] [address] VIRCreatinine [Mass/Vol]0.93 mg/dLNormal0.70-1.20 Berger HospitalComment on above:Order Comment: See Springboard - Labs Due reportResult Comment: METHOD TRACEABLE TO IDMS STANDARDPerformed By: #### CMP ####[facility] ([address] [place] [address] VIREGFR (CKD-EPI) NON-RACE DEPENDENT>^90Normal>=60ProMayhill HospitalComc.s. [facility] on above:Order Comment: See Springboard - Labs Due reportResult Comment: eGFR not reported due to non-numeric value for Creatinine.Reported eGFR is based ontheCKD-EPI 1 equation that doesnot use a race coefficient. Performed By: #### CMP ####[facility] ([address] [place] [address] VIRGlucose [Mass/Vol]167 mg/ySBqhm59-64SzmQjiwgrBerger HospitalComment on above:Order Comment: See Springboard - Labs Due reportPerformed By: #### CMP ####[facility] ([address] [place] [address] VIRPotassium [Moles/Vol]4.7 mmol/LNormal3.5-5.0 Berger HospitalComment on above:Order Comment: See Springboard - Labs Due reportPerformed By: #### CMP ####[facility] ([address] [place] [address] VIRProtein [Mass/Vol]7.0 g/dLNormal 6.0-8.0Berger HospitalComment on above:Order Comment: See Springboard - Labs Due reportPerformed By: #### CMP ####[facility] ([facility])[address] [place] [address] VIRSodium [Moles/Vol]134 mmol/LNormal 134-146ProMayhill HospitalComment on above:Order Comment: See Springboard - Labs Due reportPerformed By: #### CMP ####[facility]A [facility] ([facility])[address] [place] [address] VIRUrea nitrogen [Mass/Vol]13 mg/dL Normal5-27ProMayhill HospitalComment on above:Order Comment: See Springboard - Labs Due reportPerformed By: #### CMP ####[facility] ([facility])[address] [place] [address] VIRComprehensive metabolic panelon 14-78-4789Tjnqrft [Mass/Vol]3.7 g/dL3.2 - 5.3 g/dLProNorth [facility] Center Health SystemALP [Catalytic activity/Vol]92 U/L39 - 130 U/[facility]ica Health SystemALT No additional P-5'-P [Catalytic activity/Vol]39 U/LNINF - 40 U/L ProMedica Health SystemAnion gap [Moles/Vol]6 mmol/L5 - 15 mmol/[facility] HospitaloMedica Health SystemAST [Catalytic activity/Vol]47 U/LHighNINF - 41 U/LProMedica Health SystemBilirubin [Mass/Vol]0.4 mg/dL0.3 - 1.2 mg/dLProMedica Health SystemCalcium [Mass/Vol]9.1 mg/dL8.5 - 10.5 mg/dLProBlanchard Valley Health System [facility] Hospitalca Health SystemChloride [Moles/Vol] 101 mmol/L98 - 109 mmol/LProMedica Health SystemCO2 [Moles/Vol]27 mmol/L22 - 32 mmol/[facility] Hospitalica Health SystemCreatinine [Mass/Vol]0.93 mg/dL0.70 - 1.20 mg/dL [facility] HospitalComment on above:METHOD TRACEABLE TO IDMS STANDARDEGFR Non-Race Dependent- [facility] Health SystemComment on above:eGFR not reported due to non-numeric value for Creatinine. Reported eGFR is based on the CKD-EPI 2020 equation that does not use a race coefficient. Glucose [Mass/Vol]167 mg/oCOawf07 - 99 mg/dLCleveland Clinic Marymount Hospital Interpretation and review of laboratory resultsAbnormMercy Health Willard Hospital Potassium [Moles/Vol]4.7 mmol/L3.5 - 5.0 mmol/[facility] Health SystemProtein [Mass/Vol]7 g/dL6.0 - 8.0 g/dLProProtestant Deaconess Hospitalodium [Moles/Vol]134 mmol/L134 - 146 mmol/[facility] SystemUrea nitrogen [Mass/Vol]13 mg/dL5 - 27 mg/dLTyler Memorial HospitalTHYROID PROFILE INCLUDES TSH FT4on 69-98-1980Dcgz T4 [Mass/Vol]0.96 ng/dLNormal0.61-1.60Berger HospitalComment on above:Performed By: #### THYR ####[facility] ([address] VIRTSH4.29 uIU/mLNormal 0.49-4.67ProMayhill HospitalComment on above:Performed By: #### THYR ####[facility] ([address] VIRThyroid profile includes TSH FT4on 47-23-5462Gwck T4 [Mass/Vol]0.96 ng/dL 0.61 - 1.60 ng/dLCleveland Clinic Marymount HospitalInterpretation and review of laboratory resultsNormMercy Health Willard HospitalTS Qn4.29 m[IU]/[facility] HospitalOffice Visiton [id number]-up [id number] Torsten [place] 1955 M Date Provider Department Center 10/24/2024 FRANCISCO LEE [facility] Family History Problem Relation Age of Onset Coronary artery disease Father Coronary artery disease Brother Family Status - Relation Status Age at Mother Father Brother Level of Service:13427 [place] OFFICE/OUTPATIENT ESTABLISHED MOD MDM 30 [facility] HospitalCBC WITH AUTO DIFFERENTIALon 10-12-2024 CELLAVISION ATYPICAL LYMPHOCYTES RELATIVE PERCENT BY MANUAL COUNT2 %Normal [facility] on above:Order Comment: See Springboard - Labs Due report.Result Comment: This is an appended report. These results have been appended to a previously preliminary verified report.Performed By: #### CBCA ####[facility] ([facility])[address] [place], [place] [address] VIRCELLAVISION DIFFERENTIAL TYPEMANUAL DIFFERENTIALNormalDetwiler Memorial Hospital on above:Order Comment: See Springboard - Labs Due report.Result Comment: This is an appended report. These results have been appended to a previously preliminary verified report.Performed By: #### CBCA ####[facility]ENTERTrang [facility] ([address] [id number] VIR CELLAVISION EOSINOPHILS ABSOLUTE COUNT (10*3/UL) BY MANUAL COUNT0.3 10*3/uL Normal0.0-0.4[facility] on above:Order Comment: See Springboard - Labs Due report.Result Comment: This is an appended report. These results have been appended to a previously preliminary verified report.Performed By: #### CBCA ####[facility]ENTERTrang [facility] ([address], [id number] VIRCELLAVISION EOSINOPHILS PERCENT BY MANUAL COUNT2 %Normal [facility] on above:Order Comment: See Springboard - Labs Due report.Result Comment: This is an appended report. These results have been appended to a previously preliminary verified report.Performed By: #### CBCA ####[facility] ([address] [id number] VIRCELLAVISION LYMPHOCYTES ABSOLUTE COUNT (10*3/UL) BY MANUAL COUNT5.8 10*3/uL High1.0-3.5ProMedica Aberdeen HospitalComment on above:Order Comment: See Springboard - Labs Due report.Result Comment: This is an appended report. These results have been appended to a previously preliminary verified report.Performed By: #### CBCA ####[facility]A [facility] ([facility])[address], [id number] VIRCELLAVISION LYMPHOCYTES RELATIVE PERCENT BY MANUAL COUNT 37 %NormalProMayhill HospitalComc.s. [facility] on above:Order Comment: See Springboard - Labs Due report.Result Comment: This is an appended report. These results have been appended to a previously preliminary verified report.Performed By: #### CBCA ####[facility] ([facility])[address] [place], [place] [address], [id number] VIRCELLAVISION METAMYELOCYTES RELATIVE PERCENT BY MANUAL COUNT1 %NormalDetwiler Memorial Hospital on above:Order Comment: See Springboard - Labs Due report.Result Comment: This is an appended report. These results have been appended to a previously preliminary verified report.Performed By: #### CBCA ####[facility]ENTERTrang [facility] ([facility])[address] [place], [place] [address]E.[place], [id number] VIRCELLAVISION MONOCYTES ABSOLUTE COUNT (10*3/UL) IN BLOOD BY MANUAL COUNT3.0 10*3/uLHigh0.0-0.9Ber[facility] HospitalComc.s. [facility] on above: Order Comment: See Springboard - Labs Due report.Result Comment: This is an appended report. These results have been appended to a previously preliminary verified report.Performed By: #### CBCA ####[facility]A [facility] ([facility])[address], [id number] VIRCELLAVISION MONOCYTES RELATIVE PERCENT BY MANUAL COUNT20 %NormalProMayhill HospitalComc.s. [facility] on above: Order Comment: See Springboard - Labs Due report.Result Comment: This is an appended report. These results have been appended to a previously preliminary verified report.Performed By: #### CBCA ####[facility]A [facility] ([facility])[address]FR[facility], [id number] VIRCELLAVISION NEUTROPHILS ABSOLUTE COUNT BY MANUAL COUNT5.7 10*3/uLNormal1.5-6.6[facility] on above:Order Comment: See Springboard - Labs Due report.Result Comment: This is an appended report. These results have been appended to a previously prelimi nary verified report.Performed By: #### CBCA ####[facility]ENTERTrang [facility] ([facility])[address] [place] [address], [id number] VIRCELLAVISION NEUTROPHILS RELATIVE PERCENT BY MANUAL COUNT38 %NormalDetwiler Memorial Hospital on above:Order Comment: See Springboard - Labs Due report.Result Comment: This is an appended report. These results have been appended to a previously preliminary verified report.Performed By: #### CBCA ####[facility]ENTERTrang [facility] ([facility])[address] [place] [address], [id number] VIRCELLAVISION NUCLEATED RED BLOOD CELLS IN BLOOD BY LIGHT HCHJOFWZDN6IxehieQqcNrfnasBaylor Scott & White Medical Center – [facility] on above:Order Comment: See Springboard - Labs Due report.Result Comment: This is an appended report. These results have been appended to a previously preliminary verified report.Performed By: #### CBCA ####[facility]ENTERTrang [facility] ([facility])[address] [place] [address], [id number] VIRCELLAVISION POLYCHROMASIA IN BLOOD BY LIGHT MICROSCOPY1+NormalDetwiler Memorial Hospital on above:Order Comment: See Springboard - Labs Due report.Result Comment: This is an appended report. These results have been appended to a previously preliminary verified report.Performed By: #### CBCA ####[facility]ENTERTrang [facility] ([facility])[address] [place] [address], [id number] VIRCELLAVISION TARGET CELLS IN BLOOD BY LIGHT MICROSCOPY1+NormalDetwiler Memorial Hospital on above:Order Comment: See Springboard - Labs Due report.Result Comment: This is an appended report. These results have been appended to a previously preliminary verified report.Performed By: #### CBCA ####[facility] ([address], [id number] VIRErythrocyte distribution width (RBC) [Ratio]21.6 %High 11.5-15ProMayhill HospitalComment on above:Order Comment: See Springboard - Labs Due report.Performed By: #### CBCA ####[facility] ([address], [id number] VIRHematocrit (Bld) [Volume fraction]40.5 %Agnsaq22-95WwmRzubgtMayhill HospitalComment on above:Order Comment: See Springboard - Labs Due report.Performed By: #### CBCA ####[facility] ([address], [id number] VIRHemoglobin (Bld) [Mass/Vol]13.3 g/yKGpnimp22-46DzjErqryuMayhill HospitalComment on above: Order Comment: See Springboard - Labs Due report.Performed By: #### CBCA ####[facility] ([address], [id number] VIRMCH (RBC) [Entitic mass]30.7 hgAkhbit85-79LcoWoqwchBerger HospitalComment on above:Order Comment: See Springboard - Labs Due report.Performed By: #### CBCA ####[facility] ([address] [place] [address] VIRMCHC (RBC) [Mass/Vol]32.8 g/yRSwgosh77-36SvtWahxhe [facility] Comment on above:Order Comment: See Springboard - Labs Due report.Performed By: #### CBCA ####[facility] ([address], [id number] VIRMCV (RBC) [Entitic vol]94 fBGwfeub88-191ZqwZokdsp [facility] HospitalComment on above:Order Comment: See Springboard - Labs Due report.Performed By: #### CBCA ####[facility] ([facility])[address] [place], [place] [address]E.[place], [id number] VIRPlatelet mean volume (Bld) [Entitic vol]9.7 fLNormal7-12POhioHealth Hardin Memorial HospitalComment on above:Order Comment: See Springboard - Labs Due report.Performed By: #### CBCA ####[facility] ([address], [id number] VIRPlatelets (Bld) [#/Vol]387 10*3/gIKmqsnr588-265NaqVbdippBerger HospitalComment on above:Order Comment: See Springboard - Labs Due report.Performed By: #### CBCA ####[facility] ([facility])[address] [place] [address], [id number] VIRRBC COUNT 4.33 X10E12/LNormal4.1-5.7Berger HospitalComment on above:Order Comment: See Springboard - Labs Due report.Performed By: #### CBCA ####[facility] ([facility])[address] [place] [address].[place], [id number] VIRWBC (Bld) [#/Vol]14.9 10*3/uLHigh4-11Ber[facility] HospitalComc.s. [facility] on above:Order Comment: See Springboard - Labs Due report.Performed By: #### CBCA ####[facility] ([address], [id number] VIRCBC auto differentialon 62-57-7841Cxjhwpgxyfgz cell count method Nom (Bld)MANUAL DIFFERENTIALCleveland Clinic Marymount HospitalComment on above:This is an appended report. These results have been appended to a previously preliminary verified report. Eosinophils (Bld) [#/Vol]0.3 10*3/uL0.0 - 0.4 10*3/uLProMedica Health System Comment on above:This is an appended report. These results have been appended to a previously preliminary verified report.Eosinophils/100 WBC (Bld)2 %[facility] HospitalComment on above:This is an appended report. These results have been appended to a previously preliminary verified report.Erythrocyte distribution width (RBC) [Ratio]21.6 %High11.5 - 15 %[facility] Hematocrit (Bld) [Volume fraction]40.5 %39 - 50 %[facility] Hemoglobin (Bld) [Mass/Vol]13.3 g/dL13 - 17 g/dLCleveland Clinic Marymount Hospital Interpretation and review of laboratory resultsAbnormMercy Health Willard Hospital Lymphocytes (Bld) [#/Vol]5.8 10*3/uLHigh1.0 - 3.5 10*3/[facility] Comment on above:This is an appended report. These results have been appended to a previously preliminary verified report.MCH (RBC) [Entitic mass]30.7 pg27 - 34 [facility] HospitalMCHC (RBC) [Mass/Vol]32.8 g/dL32 - 36 g/dLCleveland Clinic Marymount HospitalMCV (RBC) [Entitic vol]94 fL80 - 100 [facility] Metamyelocytes/100 WBC (Bld)1 %[facility] HospitalComment on above:This is an appended report. These results have been appended to a previously preliminary verified report.Monocytes (Bld) [#/Vol]3 10*3/uLHigh0.0 - 0.9 10*3/[facility] HospitalComment on above:This is an appended report. These results have been appended to a previously preliminary verified report.Monocytes/100 WBC (Bld)20 %[facility] HospitalComment on above:This is an appended report. These results have been appended to a previously preliminary verified report. Neutrophils (Bld) [#/Vol]5.7 10*3/uL1.5 - 6.6 10*3/[facility] Comment on above:This is an appended report. These results have been appended to a previously preliminary verified report.Neutrophils/100 WBC (Bld)38 %[facility] HospitalComment on above:This is an appended report. These results have been appended to a previously preliminary verified report.Nucleated RBC/100 WBC (Bld) [Ratio]5 %ProMedica Health SystemComment on above:This is an appended report. These results have been appended to a previously preliminary verified re port.Platelet mean volume (Bld) [Entitic vol]9.7 fL7 - 12 fLPMagruder Hospital SystemPlatelets (Bld) [#/Vol]387 10*3/[facility] HospitalPolychromasia LM Ql (Bld)1+[facility] SystemComment on above:This is an appended report. These results have been appended to a previously preliminary verified report.RBC (Bld) [#/Vol]4.33 10*6/[facility] HospitalTarget cells LM Ql (Bld)1+ [facility] SystemComment on above:This is an appended report. These results have been appended to a previously preliminary verified report.Variant lymphocytes/100 WBC (Bld)37 %[facility] HospitalComment on above:This is an appended report. These results have been appended to a previously preliminary verified report.Variant lymphocytes/100 WBC (Bld)2 %[facility] Comment on above:This is an appended report. These results have been appended to a previously preliminary verified report.WBC LM Ql (Sput)14.9HighFroedtert West Bend Hospital SystemCOMPREHENSIVE METABOLIC PANELon 10-12-2024 Albumin [Mass/Vol]3.5 g/dLNormal3.2-5.3POhioHealth Hardin Memorial HospitalComment on above:Order Comment: See Springboard - Labs Due reportPerformed By: #### CMP ####[facility] ([facility])[address] [place] [address] [place]VE.[place], [place] [address] VIRALP [Catalytic activity/Vol]87 U/LKknkyp78-533LrjBakidtBerger Hospital Comment on above:Order Comment: See Springboard - Labs Due reportPerformed By: #### CMP ####[facility] ([facility])[address] [place] [address] VIRALT [Catalytic activity/Vol]30 U/LNormal<=40Berger HospitalComment on above:Order Comment: See Springboard - Labs Due reportPerformed By: #### CMP ####[facility] ([facility] [place] [address] VIRAnion gap [Moles/Vol]9 mmol/LNormal5-15 Berger HospitalComment on above:Order Comment: See Springboard - Labs Due reportPerformed By: #### CMP ####[facility] ([facility] [place] [address] VIRAST [Catalytic activity/Vol]34 U/L Normal<=41Berger HospitalComment on above:Order Comment: See Springboard - Labs Due reportPerformed By: #### CMP ####[facility] ([address] [place] [address] VIRBilirubin [Mass/Vol]0.4 mg/dLNormal0.3-1.2POhioHealth Hardin Memorial HospitalComment on above:Order Comment: See Springboard - Labs Due reportPerformed By: #### CMP ####[facility] [facility] ([facility])[address] [place], [place] [address] [address] VIRCalcium [Mass/Vol]8.9 mg/dLNormal8.5-10.5POhioHealth Hardin Memorial HospitalComment on above: Order Comment: See Springboard - Labs Due reportPerformed By: #### CMP ####[facility] ([address], [place] [address] VIRChloride [Moles/Vol]100 mmol/HKvkxiv36-576FblYssorvBerger Hospital Comment on above:Order Comment: See Springboard - Labs Due reportPerformed By: #### CMP ####[facility] ([address] [place] [address] VIRCO2 [Moles/Vol]28 mmol/MFimotq87-35HisErxritOhioHealth Hardin Memorial HospitalComment on above:Order Comment: See Springboard - Labs Due report Performed By: #### CMP ####[facility] ([address] [place] [address] VIRCreatinine [Mass/Vol]0.88 mg/dLNormal0.70-1.20 Berger HospitalComment on above:Order Comment: See Springboard - Labs Due reportResult Comment: METHOD TRACEABLE TO IDMS STANDARDPerformed By: #### CMP ####[facility] ([address] [place] [address] VIREGFR (CKD-EPI) NON-RACE DEPENDENT>^90Normal>=60ProMayhill HospitalComment on above:Order Comment: See Springboard - Labs Due reportResult Comment: eGFR not reported due to non-numeric value for Creatinine.Reported eGFR is based ontheCKD-EPI 2020 equation that doesnot use a race coefficient. Performed By: #### CMP ####[facility] ([address] [place] [address] VIRGlucose [Mass/Vol]158 mg/jUFync03-79GquKsbuobMayhill HospitalComment on above:Order Comment: See Springboard - Labs Due reportPerformed By: #### CMP ####[facility] ([address] [address] VIRPotassium [Moles/Vol]4.3 mmol/LNormal3.5-5.0 Berger HospitalComment on above:Order Comment: See Springboard - Labs Due reportPerformed By: #### CMP ####[facility] ([address] [address] VIRProtein [Mass/Vol]6.6 g/dLNormal 6.0-8.0ProMayhill HospitalComment on above:Order Comment: See Springboard - Labs Due reportPerformed By: #### CMP ####[facility] ([address] [place] [address] VIRSodium [Moles/Vol]137 mmol/LNormal 134-146ProMayhill HospitalComment on above:Order Comment: See Springboard - Labs Due reportPerformed By: #### CMP ####[facility] ([facility])[address] [place] [address].[place] [address] VIRUrea nitrogen [Mass/Vol]12 mg/dL Normal5-27Berger HospitalComment on above:Order Comment: See Springboard - Labs Due reportPerformed By: #### CMP ####[facility] ([facility])[address] [facility] [place] [address] VIRComprehensive metabolic panelon [id number] [Mass/Vol]3.5 g/dL3.2 - 5.3 g/dLProNorth [facility] Health SystemALP [Catalytic activity/Vol]87 U/L39 - 130 U/[facility] Health SystemALT No additional P-5'-P [Catalytic activity/Vol]30 U/LNINF - 40 U/L [facility] HospitalAnion gap [Moles/Vol]9 mmol/L5 - 15 mmol/LPrAdventHealth Porter Health SystemAST [Catalytic activity/Vol]34 U/LNINF - 41 U/[facility] Health SystemBilirubin [Mass/Vol]0.4 mg/dL0.3 - 1.2 mg/dLBrown Memorial Hospital SystemCalcium [Mass/Vol]8.9 mg/dL8.5 - 10.5 mg/dLBrown Memorial Hospital SystemChloride [Moles/Vol] 100 mmol/L98 - 109 mmol/[facility] Health SystemCO2 [Moles/Vol]28 mmol/L22 - 32 mmol/[facility] SystemCreatinine [Mass/Vol]0.88 mg/dL0.70 - 1.20 mg/dL [facility] HospitalComment on above:METHOD TRACEABLE TO IDMS STANDARDEGFR Non-Race Dependent- [facility] Health SystemComment on above:eGFR not reported due to non-numeric value for Creatinine. Reported eGFR is based on the CKD-EPI 2020 equation that does not use a race coefficient. Glucose [Mass/Vol]158 mg/aHFsxr60 - 99 mg/dLCleveland Clinic Marymount Hospital Interpretation and review of laboratory resultsAbnormalC[facility] Clinic [facility] Hospital Potassium [Moles/Vol]4.3 mmol/L3.5 - 5.0 mmol/[facility] SystemProtein [Mass/Vol]6.6 g/dL6.0 - 8.0 g/dLAtrium Healthodium [Moles/Vol]137 mmol/L134 - 146 mmol/[facility] SystemUrea nitrogen [Mass/Vol]12 mg/dL5 - 27 mg/dLProAdena Fayette Medical CenterProBlanchard Valley Health System SystemTHYROID PROFILE INCLUDES TSH FT4on [id number] T4 [Mass/Vol]1.00 ng/dLNormal0.61-1.60Berger HospitalComment on above:Performed By: #### THYR ####[facility] ([address] VIRTSH4.25 uIU/mLNormal 0.49-4.67Berger HospitalComment on above:Performed By: #### THYR ####[facility] ([address], [id number] VIRThyroid profile includes TSH FT4on [id number] T4 [Mass/Vol]1 ng/dL0.61 - 1.60 ng/dLCleveland Clinic Marymount HospitalInterpretation and review of laboratory resultsNormalCritical access hospital Qn4.25 m[IU]/[facility] HospitalCBC WITH AUTO DIFFERENTIALon [id number] form neutrophils/100 WBC (Bld)3 %NormalBerger HospitalComc.s. [facility] on above: Order Comment: See Springboard - Labs Due report.Result Comment: This is an appended report. These results have been appended to a previously preliminary verified report.Performed By: #### CBCA ####[address] [id number] VIRCELLAVISION ATYPICAL LYMPHOCYTES RELATIVE PERCENT BY MANUAL COUNT2 %NormalDetwiler Memorial Hospital on above:Order Comment: See Springboard - Labs Due report.Result Comment: This is an appended report. These results have been appended to a previously preliminary verified report.Performed By: #### CBCA ####[facility]ENTERTr[facility] ([facility])[address] [place] [address], [id number] VIRCELLAVISION BASOPHILS ABSOLUTE COUNT (10*3/UL) BY MANUAL COUNT0.3 10*3/uLHigh0.0-0.2POhioHealth Hardin Memorial Hospital Comment on above:Order Comment: See Springboard - Labs Due report.Result Comment: This is an appended report. These results have been appended to a previously preliminary verified report.Performed By: #### CBCA ####[facility] ([facility])[address] [place] [address], [id number] VIR CELLAVISION BASOPHILS RELATIVE PERCENT BY MANUAL COUNT2 %NormalBerger HospitalComc.s. [facility] on above:Order Comment: See Springboard - Labs Due report. Result Comment: This is an appended report. These results have been appended to a previously preliminary verified report.Performed By: #### CBCA ####[facility] ([facility])[address] [place] [address], [id number] VIR CELLAVISION DIFFERENTIAL TYPEMANUAL DIFFERENTIALNormalBerger Hospital Comment on above:Order Comment: See Springboard - Labs Due report.Result Comment: This is an appended report. These results have been appended to a previously preliminary verified report.Performed By: #### CBCA ####[facility] ([facility])[address] [place] [address], [id number] VIR CELLAVISION EOSINOPHILS ABSOLUTE COUNT (10*3/UL) BY MANUAL COUNT0.3 10*3/uL Normal0.0-0.4Berger HospitalComment on above:Order Comment: See Springboard - Labs Due report.Result Comment: This is an appended report. These results have been appended to a previously preliminary verified report.Performed By: #### CBCA ####[facility] ([facility])[address] [place] [address] [id number] VIRCELLAVISION EOSINOPHILS PERCENT BY MANUAL COUNT2 %Normal Berger HospitalComment on above:Order Comment: See Springboard - Labs Due report.Result Comment: This is an appended report. These results have been appended to a previously preliminary verified report.Performed By: #### CBCA ####[facility]ENTERTrang [facility] ([facility])[address] [place] [address], [id number] VIRCELLAVISION LYMPHOCYTES ABSOLUTE COUNT (10*3/UL) BY MANUAL COUNT6.7 10*3/uL High1.0-3.5ProMedCamarillo State Mental Hospital on above:Order Comment: See Springboard - Labs Due report.Result Comment: This is an appended report. These results have been appended to a previously preliminary verified report.Performed By: #### CBCA ####[facility]ENTERTrang [facility] ([address], [id number] VIRCELLAVISION LYMPHOCYTES RELATIVE PERCENT BY MANUAL COUNT 43 %NormalDetwiler Memorial Hospital on above:Order Comment: See Springboard - Labs Due report.Result Comment: This is an appended report. These results have been appended to a previously preliminary verified report.Performed By: #### CBCA ####[facility]ENTERTrang [facility] ([address], [id number] VIRCELLAVISION MONOCYTES ABSOLUTE COUNT (10*3/UL) IN BLOOD BY MANUAL COUNT1.5 10*3/uLHigh0.0-0.9ProBaylor Scott & White Medical Center [facility] on above: Order Comment: See Springboard - Labs Due report.Result Comment: This is an appended report. These results have been appended to a previously preliminary verified report.Performed By: #### CBCA ####[facility]ENTERTrang [facility] ([facility])[address] [place] [address], [id number] VIRCELLAVISION MONOCYTES RELATIVE PERCENT BY MANUAL COUNT10 %NormalDetwiler Memorial Hospital on above: Order Comment: See Springboard - Labs Due report.Result Comment: This is an appended report. These results have been appended to a previously preliminary verified report.Performed By: #### CBCA ####[facility] ([address], [id number] VIRCELLAVISION MYELOCYTE RELATIVE PERCENT BY MANUAL COUNT2 %NormalDetwiler Memorial Hospital on above:Order Comment: See Springboard - Labs Due report.Result Comment: This is an appended report. These results have been appended to a previously preliminary verified report.Performed By: #### CBCA ####[address], [id number] VIRCELLAVISION NEUTROPHILS ABSOLUTE COUNT BY MANUAL COUNT5.7 10*3/uLNormal1.5-6.6Detwiler Memorial Hospital on above: Order Comment: See Springboard - Labs Due report.Result Comment: This is an appended report. These results have been appended to a previously preliminary verified report.Performed By: #### CBCA ####[facility] CENTERTrang [address], [id number] VIRCELLAVISION NEUTROPHILS RELATIVE PERCENT BY MANUAL COUNT36 %[facility] on above: Order Comment: See Springboard - Labs Due report.Result Comment: This is an appended report. These results have been appended to a previously preliminary verified report.Performed By: #### CBCA ####[facility]ENTERTrang [facility] ([address], [id number] VIRCELLAVISION NUCLEATED RED BLOOD CELLS IN BLOOD BY LIGHT JFDUCBGQGV1UkakbpQvsCrppgbBaylor Scott & White Medical Center – [facility]ax[facility] on above:Order Comment: See Springboard - Labs Due report.Result Comment: This is an appended report. These results have been appended to a previously preliminary verified report.Performed By: #### CBCA ####[facility] CENTERTrang [address], [id number] VIRCELLAVISION RBC MORPHOLOGYReviewed [facility] on above:Order Comment: See Springboard - Labs Due report.Result Comment: This is an appended report. These results have been appended to a previously preliminary verified report.Performed By: #### CBCA ####[facility] ([facility])[address] [place] [address] [place] [address] VIRErythrocyte distribution width (RBC) [Ratio]22.4 %High11.5-15[facility] on above:Order Comment: See Springboard - Labs Due report.Performed By: #### CBCA ####[facility] ([address], [id number] VIRHematocrit (Bld) [Volume fraction]41.4 % Ofvfqu93-94MewZtajllMayhill HospitalComc.s. [facility] on above:Order Comment: See Springboard - Labs Due report.Performed By: #### CBCA ####[facility] ([address], [id number] VIRHemoglobin (Bld) [Mass/Vol]13.4 g/eRVqvwwq97-69LmzKirlqsDetwiler Memorial Hospital on above:Order Comment: See Springboard - Labs Due report.Performed By: #### CBCA ####[facility] ([address], [id number] VIRMCH (RBC) [Entitic mass]30.0 pjOqlmpw11-98FjeGwjkjbDetwiler Memorial Hospital on above: Order Comment: See Springboard - Labs Due report.Performed By: #### CBCA ####[facility] ([address], [id number] VIRMCHC (RBC) [Mass/Vol]32.3 g/eDKrertz38-72JzjIhmfexBerger HospitalComc.s. [facility] on above:Order Comment: See Springboard - Labs Due report.Performed By: #### CBCA ####[facility] ([facility])[address] [place], [place] [address]E.[place], [id number] VIRMCV (RBC) [Entitic vol]93 gBYvesgl44-752DywHgmvvv [facility] HospitalComc.s. [facility] on above:Order Comment: See Springboard - Labs Due report.Performed By: #### CBCA ####[facility] ([facility])[address] [place] [address].[place], [id number] VIRPlatelet mean volume (Bld) [Entitic vol]10.0 fLNormal7-12[facility] on above:Order Comment: See Springboard - Labs Due report. Performed By: #### CBCA ####[facility] ([facility])[address] [place] [address].[place], [id number] VIRPlatelets (Bld) [#/Vol]392 10*3/bOOcddud749-331 Berger HospitalComc.s. [facility] on above:Order Comment: See Springboard - Labs Due report.Performed By: #### CBCA ####[facility] ([address], [id number] VIRRBC COUNT4.46 X10E12/LNormal4.1-5.7 Berger HospitalComc.s. [facility] on above:Order Comment: See Springboard - Labs Due report.Performed By: #### CBCA ####[facility] ([address], [id number] VIRWBC (Bld) [#/Vol]14.8 10*3/uLHigh 4-11Berger HospitalComc.s. [facility] on above:Order Comment: See Springboard - Labs Due report.Performed By: #### CBCA ####[facility] ([address], [id number] VIRCBC auto differentialon 09-28-2024 Band form neutrophils/100 WBC (Bld)3 %[facility] HospitalComment on above: This is an appended report. These results have been appended to a previously preliminary verified report.Basophils (Bld) [#/Vol]0.3 10*3/uLHigh0.0 - 0.2 10*3/uLCleveland Clinic Marymount HospitalComment on above:This is an appended report. These results have been appended to a previously preliminary verified report. Basophils/100 WBC (Bld)2 %[facility] HospitalComment on above:This is an appended report. These results have been appended to a previously preliminary verified report.Differential cell count method Nom (Bld)MANUAL DIFFERENTIAL [facility] HospitalComment on above:This is an appended report. These results have been appended to a previously preliminary verified report. Eosinophils (Bld) [#/Vol]0.3 10*3/uL0.0 - 0.4 10*3/uLCleveland Clinic Marymount Hospital Comment on above:This is an appended report. These results have been appended to a previously preliminary verified report.Eosinophils/100 WBC (Bld)2 %[facility] HospitalComment on above:This is an appended report. These results have been appended to a previously preliminary verified report.Erythrocyte distribution width (RBC) [Ratio]22.4 %High11.5 - 15 %[facility] Hematocrit (Bld) [Volume fraction]41.4 %39 - 50 %[facility] Hemoglobin (Bld) [Mass/Vol]13.4 g/dL13 - 17 g/dLCleveland Clinic Marymount Hospital Interpretation and review of laboratory resultsAbnormMercy Health Willard Hospital Lymphocytes (Bld) [#/Vol]6.7 10*3/uLHigh1.0 - 3.5 10*3/uLCleveland Clinic Marymount Hospital Comment on above:This is an appended report. These results have been appended to a previously preliminary verified report.MCH (RBC) [Entitic mass]30 pg27 - 34 [facility] HospitalMCHC (RBC) [Mass/Vol]32.3 g/dL32 - 36 g/dLCleveland Clinic Marymount HospitalMCV (RBC) [Entitic vol]93 fL80 - 100 [facility] Monocytes (Bld) [#/Vol]1.5 10*3/uLHigh0.0 - 0.9 10*3/uLBrown Memorial Hospital System Comment on above:This is an appended report. These results have been appended to a previously preliminary verified report.Monocytes/100 WBC (Bld)10 %[facility] HospitalComment on above:This is an appended report. These results have been appended to a previously preliminary verified report.Myelocytes/100 WBC (Bld)2 %[facility] HospitalComment on above:This is an appended report. These results have been appended to a previously preliminary verified report. Neutrophils (Bld) [#/Vol]5.7 10*3/uL1.5 - 6.6 10*3/[facility] Comment on above:This is an appended report. These results have been appended to a previously preliminary verified report.Neutrophils/100 WBC (Bld)36 %[facility] HospitalComment on above:This is an appended report. These results have been appended to a previously preliminary verified report.Nucleated RBC/100 WBC (Bld) [Ratio]8 %[facility] HospitalComment on above:This is an appended report. These results have been appended to a previously preliminary verified re port.Platelet mean volume (Bld) [Entitic vol]10 fL7 - 12 [facility] Blue SpringsPlatelets (Bld) [#/Vol]392 10*3/[facility] Services SystemRBC (Bld) [#/Vol] 4.46 10*6/[facility] SystemRBC (Bld) [#/Vol][facility] CenterComment on above:This is an appended report. These results have been appended to a previously preliminary verified report.Variant lymphocytes/100 WBC (Bld)43 %[facility] HospitalComment on above:This is an appended report. These results have been appended to a previously preliminary verified report. Variant lymphocytes/100 WBC (Bld)2 %[facility] HospitalComment on above:This is an appended report. These results have been appended to a previously preliminary verified report.WBC LM Ql (Sput)14.8HWestern Wisconsin HealthCOMPREHENSIVE METABOLIC PANELon 54-47-9193Ydpgltd [Mass/Vol]3.4 g/dLNormal3.2-5.3POhioHealth Hardin Memorial HospitalComc.s. [facility] on above:Order Comment: See Springboard - Labs Due reportPerformed By: #### CMP ####[facility] CENTEREDICSANTA [facility] ([facility])[address] [place] [address].[place] [address] VIRALP [Catalytic activity/Vol]96 U/KIpoanc28-039ExzNqspfpMayhill HospitalComment on above:Order Comment: See Springboard - Labs Due reportPerformed By: #### CMP ####[facility] ([facility] [address] [place] [address] VIRALT [Catalytic activity/Vol]28 U/LNormal<=40[facility] Comment on above:Order Comment: See Springboard - Labs Due reportPerformed By: #### CMP ####[facility] ([facility])[address] [place], [place] [address] [address] VIRAnion gap [Moles/Vol]7 mmol/LNormal5-15ProMayhill HospitalComment on above:Order Comment: See Springboard - Labs Due reportPerformed By: #### CMP ####[facility] ([address] [place] [address] VIRAST [Catalytic activity/Vol]31 U/LNormal<=41 ProMLos Alamitos Medical CenterComment on above:Order Comment: See Springboard - Labs Due reportPerformed By: #### CMP ####[facility] ([address] [address] VIRBilirubin [Mass/Vol]0.4 mg/dLNormal 0.3-1.2POhioHealth Hardin Memorial HospitalComment on above:Order Comment: See Springboard - Labs Due reportPerformed By: #### CMP ####[facility] ([address] [address] VIRCalcium [Mass/Vol]9.0 mg/dLNormal 8.5-10.5POhioHealth Hardin Memorial HospitalComment on above:Order Comment: See Springboard - Labs Due reportPerformed By: #### CMP ####[facility] ([facility])[address] [place], [place] [address]T [address].[place] [address] VIRChloride [Moles/Vol]100 mmol/HYxsmaj63-466SdzGxcwbbMayhill HospitalComment on above: Order Comment: See Springboard - Labs Due reportPerformed By: #### CMP ####[facility] ([facility])[address], [place] [address] VIRCO2 [Moles/Vol]28 mmol/WDooyai83-07UarHlnardOhioHealth Hardin Memorial HospitalComment on above:Order Comment: See Springboard - Labs Due reportPerformed By: #### CMP ####[facility] ([facility])[address] [place] [address] [address]VE.[place], [place] [address] VIRCreatinine [Mass/Vol]0.89 mg/dLNormal0.70-1.20[facility] Comment on above:Order Comment: See Springboard - Labs Due reportResult Comment: METHOD TRACEABLE TO IDMS STANDARDPerformed By: #### CMP ####[facility] ([address] [place] [address] VIREGFR (CKD-EPI) NON-RACE DEPENDENT>^90Normal>=60ProMayhill HospitalComment on above:Order Comment: See Springboard - Labs Due reportResult Comment: eGFR not reported due to non-numeric value for Creatinine.Reported eGFR is based ontheCKD-EPI 2020 equation that doesnot use a race coefficient.Performed By: #### CMP ####[facility] ([address], [place] [address] VIRGlucose [Mass/Vol]171 mg/hKDeng51-32GzuMyfffqMayhill HospitalComment on above:Order Comment: See Springboard - Labs Due reportPerformed By: #### CMP ####[facility] ([address], [place] [address] VIRPotassium [Moles/Vol]4.4 mmol/LNormal3.5-5.0[facility] Comment on above:Order Comment: See Springboard - Labs Due reportPerformed By: #### CMP ####[facility] ([address] [place] [address] VIRProtein [Mass/Vol]6.8 g/dLNormal6.0-8.0Berger HospitalComment on above:Order Comment: See Springboard - Labs Due reportPerformed By: #### CMP ####[facility] ([facility])[address] [place] [address] VIRSodium [Moles/Vol]135 mmol/TRxpjwu289-611 ProMLos Alamitos Medical CenterComment on above:Order Comment: See Springboard - Labs Due reportPerformed By: #### CMP ####[facility] ([facility])[address] [place] [address] VIRUrea nitrogen [Mass/Vol]14 mg/dL Normal5-27ProMayhill HospitalComment on above:Order Comment: See Springboard - Labs Due reportPerformed By: #### CMP ####[facility] ([facility])[address] [place] [address] VIRComprehensive metabolic panelon 62-09-8721Ffwwtaf [Mass/Vol]3.4 g/dL3.2 - 5.3 g/dLProMedica Health SystemALP [...] Health SystemCreatinine [Mass/Vol]0.89 mg/dL0.70 - 1.20 mg/dL [facility] HospitalComment on above:METHOD TRACEABLE TO IDMS STANDARDEGFR Non-Race Dependent- [facility] Health SystemComment on above:eGFR not reported due to non-numeric value for Creatinine. Reported eGFR is based on the CKD-EPI 2020 equation that does not use a race coefficient. Glucose [Mass/Vol]171 mg/fSVcdv47 - 99 mg/dLCleveland Clinic Marymount Hospital Interpretation and review of laboratory resultsAbnormalC[facility] Clinic [facility] Hospital Potassium [Moles/Vol]4.4 mmol/L3.5 - 5.0 mmol/[facility] SystemProtein [Mass/Vol]6.8 g/dL6.0 - 8.0 g/dLAtrium Healthodium [Moles/Vol]135 mmol/L134 - 146 mmol/[facility] HospitalUrea nitrogen [Mass/Vol]14 mg/dL5 - 27 mg/dLTyler Memorial HospitalTHYROID PROFILE INCLUDES TSH FT4on 22-24-8605Szyb T4 [Mass/Vol]0.99 ng/dLNormal0.61-1.60Berger HospitalComment on above:Performed By: #### THYR ####[facility] ([place] [address] VIRTSH3.38 uIU/mLNormal 0.49-4.67Berger HospitalComment on above:Performed By: #### THYR ####[address] VIRThyroid profile includes TSH FT4on 45-59-7307Kugs T4 [Mass/Vol]0.99 ng/dL 0.61 - 1.60 ng/dLCleveland Clinic Marymount HospitalInterpretation and review of laboratory resultsNormalCleveland Clinic Marymount HospitalTS Qn3.38 m[IU]/[facility] HospitalCBC WITH AUTO DIFFERENTIALon 84-28-0955EXDQXNLEFKW ATYPICAL LYMPHOCYTES RELATIVE PERCENT BY MANUAL COUNT1 %NormalBerger HospitalComc.s. [facility] on above:Order Comment: See Springboard - Labs Due report.Result Comment: This is an appended report. These results have been appended to a previously preliminary verified report.Performed By: #### CBCA ####[facility] ([facility])[address] [place] [address], [id number] VIR CELLAVISION DIFFERENTIAL TYPECELLAVISION DIFFERENTIALNormalDetwiler Memorial Hospital on above:Order Comment: See Springboard - Labs Due report.Result Comment: This is an appended report. These results have been appended to a previously preliminary verified report.Performed By: #### CBCA ####[facility] ([facility])[address] [place] [address], [id number] VIR CELLAVISION EOSINOPHILS ABSOLUTE COUNT (10*3/UL) BY MANUAL COUNT0.2 10*3/uL Normal0.0-0.4[facility] on above:Order Comment: See Springboard - Labs Due report.Result Comment: This is an appended report. These results have been appended to a previously preliminary verified report.Performed By: #### CBCA ####[facility] ([facility])[address] [place] [address], [id number] VIRCELLAVISION EOSINOPHILS PERCENT BY MANUAL COUNT1 %Normal [facility] on above:Order Comment: See Springboard - Labs Due report.Result Comment: This is an appended report. These results have been appended to a previously preliminary verified report.Performed By: #### CBCA ####[facility]Tr[facility] ([facility])[address] [place] [address], [id number] VIRCELLAVISION LYMPHOCYTES ABSOLUTE COUNT (10*3/UL) BY MANUAL COUNT5.1 10*3/uL High1.0-3.5PMercy Health St. [facility] on above:Order Comment: See Springboard - Labs Due report.Result Comment: This is an appended report. These results have been appended to a previously preliminary verified report.Performed By: #### CBCA ####[facility] ([facility])[address] [place] [address], [id number] VIRCELLAVISION LYMPHOCYTES RELATIVE PERCENT BY MANUAL COUNT 28 %NormalProBaylor Scott & White Medical Center – [place] on above:Order Comment: See Springboard - Labs Due report.Result Comment: This is an appended report. These results have been appended to a previously preliminary verified report.Performed By: #### CBCA ####[facility]Tr[facility] ([facility])[address] [place] [address], [id number] VIRCELLAVISION MONOCYTES ABSOLUTE COUNT (10*3/UL) IN BLOOD BY MANUAL COUNT2.7 10*3/uLHigh0.0-0.9ProBaylor Scott & White Medical Center – [place] on above: Order Comment: See Springboard - Labs Due report.Result Comment: This is an appended report. These results have been appended to a previously preliminary verified report.Performed By: #### CBCA ####[facility]Tr[facility] ([address] [id number] VIRCELLAVISION MONOCYTES RELATIVE PERCENT BY MANUAL COUNT16 %NormalDetwiler Memorial Hospital on above: Order Comment: See Springboard - Labs Due report.Result Comment: This is an appended report. These results have been appended to a previously preliminary verified report.Performed By: #### CBCA ####[facility]Tr[facility] ([facility])[address] [place] [address], [id number] VIRCELLAVISION NEUTROPHILS ABSOLUTE COUNT BY MANUAL COUNT9.4 10*3/uLHigh1.5-6.6ProBaylor Scott & White [facility] Center – [place] on above:Order Comment: See Springboard - Labs Due report.Result Comment: This is an appended report. These results have been appended to a previously preliminary verified report.Performed By: #### CBCA ####[facility] ([facility])[address] [place] [address], [id number] VIRCELLAVISION NEUTROPHILS RELATIVE PERCENT BY MANUAL COUNT54 %NormalDetwiler Memorial Hospital on above: Order Comment: See Springboard - Labs Due report.Result Comment: This is an appended report. These results have been appended to a previously preliminary verified report.Performed By: #### CBCA ####[facility] ([facility])[address], [id number] VIRCELLAVISION NUCLEATED RED BLOOD CELLS IN BLOOD BY LIGHT DJRNVYYMBG8EzibldRwtSuduts [place] HospitalComment on above:Order Comment: See Springboard - Labs Due report.Result Comment: This is an appended report. These results have been appended to a previously preliminary verified report.Performed By: #### CBCA ####[facility] ([facility])[address] [place] [address] AVE.[facility], [id number] VIRCELLAVISION POLYCHROMASIA IN BLOOD BY LIGHT MICROSCOPY1+NormalBerger HospitalComment on above:Order Comment: See Springboard - Labs Due report.Result Comment: This is an appended report. These results have been appended to a previously preliminary verified report.Performed By: #### CBCA ####[facility] ([address], [id number] VIRErythrocyte distribution width (RBC) [Ratio] 22.2 %High11.5-15Berger HospitalComment on above:Order Comment: See Springboard - Labs Due report.Performed By: #### CBCA ####[facility] ([address], [id number] VIRHematocrit (Bld) [Volume fraction]41.0 %Nntfbi79-64UohVmrtrkBerger HospitalComment on above: Order Comment: See Springboard - Labs Due report.Performed By: #### CBCA ####[facility] ([facility])[address] [place] [address] AVE.[facility], [id number] VIRHemoglobin (Bld) [Mass/Vol]13.2 g/lQSlxwrd47-12QmnLfmifcBerger Hospital Comment on above:Order Comment: See Springboard - Labs Due report.Performed By: #### CBCA ####[facility] ([facility])[address] [place] [address] AVE.[facility], [id number] VIRMCH (RBC) [Entitic mass]30.4 goGtyvqr48-75KeqRckqqtDetwiler Memorial Hospital on above:Order Comment: See Springboard - Labs Due report.Performed By: #### CBCA ####[facility] ([facility])[address] [place] [address] AVE.[place], [id number] VIRMCHC (RBC) [Mass/Vol]32.3 g/wJWqpalr72-58 [facility] on above:Order Comment: See Springboard - Labs Due report.Performed By: #### CBCA ####[facility] ([facility])[address] [place], [place] [address]E.[place], [id number] VIRMCV (RBC) [Entitic vol]94 fLNormal 80-100Berger HospitalComc.s. [facility] on above:Order Comment: See Springboard - Labs Due report.Performed By: #### CBCA ####[facility] ([address], [id number] VIRPlatelet mean volume (Bld) [Entitic vol]10.1 fLNormal7-12PGlenwood Regional Medical Centerica Patton State HospitalComc.s. [facility] on above:Order Comment: See Springboard - Labs Due report.Performed By: #### CBCA ####[facility] ([address], [id number] VIRPlatelets (Bld) [#/Vol]318 10*3/qVNiokwd733-851DjfEfxysj [place] HospitalComc.[facility]. [facility] on above: Order Comment: See Springboard - Labs Due report.Performed By: #### CBCA ####[facility] ([facility])[address] [place], [place] [address]E.[place], [id number] VIRRBC COUNT4.35 X10E12/LNormal4.1-5.7Berger HospitalComc.s. [facility] on above:Order Comment: See Springboard - Labs Due report.Performed By: #### CBCA ####[facility] ([address], [id number] VIRWBC (Bld) [#/Vol]17.3 10*3/uLHigh4-11ProMayhill HospitalComment on above:Order Comment: See Springboard - Labs Due report.Performed By: #### CBCA ####[facility] ([facility])[address], [id number] [facility] auto differentialon 65-06-1041Thotgvpbyprt cell count method Nom (Bld) CELLAVISION DIFFERENTIALCleveland Clinic Marymount HospitalComment on above:This is an appended report. These results have been appended to a previously preliminary verified report.Eosinophils (Bld) [#/Vol]0.2 10*3/uL0.0 - 0.4 10*3/uLCleveland Clinic Marymount HospitalComment on above:This is an appended report. These results have been appended to a previously preliminary verified report.Eosinophils/100 WBC (Bld)1 %[facility] Mary[facility] HospitalComment on above:This is an appended report. These results have been appended to a previously preliminary verified report. Erythrocyte distribution width (RBC) [Ratio]22.2 %High11.5 - 15 %[facility] Mary[facility] HospitalHematocrit (Bld) [Volume fraction]41 %39 - 50 %[facility] Mary[facility] HospitalHemoglobin (Bld) [Mass/Vol]13.2 g/dL13 - 17 g/dLCleveland Clinic Marymount Hospital Interpretation and review of laboratory resultsAbnormalCleveland Clinic [facility]mount Hospital Lymphocytes (Bld) [#/Vol]5.1 10*3/uLHigh1.0 - 3.5 10*3/uLBrown Memorial Hospital System Comment on above:This is an appended report. These results have been appended to a previously preliminary verified report.MCH (RBC) [Entitic mass]30.4 pg27 - 34 [facility] HospitalMCHC (RBC) [Mass/Vol]32.3 g/dL32 - 36 g/dLCleveland Clinic Marymount HospitalMCV (RBC) [Entitic vol]94 fL80 - 100 [facility] Monocytes (Bld) [#/Vol]2.7 10*3/uLHigh0.0 - 0.9 10*3/uLBrown Memorial Hospital System Comment on above:This is an appended report. These results have been appended to a previously preliminary verified report.Monocytes/100 WBC (Bld)16 %[facility] Mary[facility] HospitalComment on above:This is an appended report. These results have been appended to a previously preliminary verified report.Neutrophils (Bld) [#/Vol]9.4 10*3/uLHigh1.5 - 6.6 10*3/uLBrown Memorial Hospital SystemComment on above: This is an appended report. These results have been appended to a previously preliminary verified report.Neutrophils/100 WBC (Bld)54 %[facility] Comment on above:This is an appended report. These results have been appended to a previously preliminary verified report.lIKU3JnhXvwdigCleveland Clinic Marymount HospitalComment on above:This is an appended report. These results have been appended to a previously preliminary verified report.Platelet mean volume (Bld) [Entitic vol] 10.1 fL7 - 12 [facility] SpringsPlatelets (Bld) [#/Vol]318 10*3/uL [facility] HospitalPolychromasia LM Ql (Bld)1+[facility] HospitalComment on above:This is an appended report. These results have been appended to a previously preliminary verified report.RBC (Bld) [#/Vol]4.35 10*6/uLBrown Memorial Hospital SystemVariant lymphocytes/100 WBC (Bld)28 %[facility] HospitalComment on above:This is an appended report. These results have been appended to a previously preliminary verified report.Variant lymphocytes/100 WBC (Bld)1 % [facility] Mary[facility] HospitalComment on above:This is an appended report. These results have been appended to a previously preliminary verified report.WBC LM Ql (Sput)17.3HAscension Good Samaritan Health Center SystemCOMPREHENSIVE METABOLIC PANELon 28-34-1481Ddkdmah [Mass/Vol]3.3 g/dLNormal3.2-5.3POhioHealth Hardin Memorial HospitalComment on above:Order Comment: See Springboard - Labs Due reportPerformed By: #### CMP ####[facility] ([facility])[address] [place] [address].[place] [address] VIRALP [Catalytic activity/Vol]99 U/LNormal 39-130ProMayhill HospitalComment on above:Order Comment: See Springboard - Labs Due reportPerformed By: #### CMP ####[facility] ([facility] [address] [address] VIRALT [Catalytic activity/Vol]28 U/L Normal<=40ProMayhill HospitalComment on above:Order Comment: See Springboard - Labs Due reportPerformed By: #### CMP ####[facility] ([facility] [place] [address] VIRAnion gap [Moles/Vol]9 mmol/LNormal5-15Berger HospitalComment on above:Order Comment: See Springboard - Labs Due reportPerformed By: #### CMP ####[facility] ([address] [place] [address] VIRAST [Catalytic activity/Vol]36 U/LNormal<=41ProMayhill HospitalComment on above:Order Comment: See Springboard - Labs Due reportPerformed By: #### CMP ####[facility] ([address], [place] [address] VIRBilirubin [Mass/Vol]0.4 mg/dLNormal0.3-1.2POhioHealth Hardin Memorial Hospital Comment on above:Order Comment: See Springboard - Labs Due reportPerformed By: #### CMP ####[facility] ([facility] [place] [address] VIRCalcium [Mass/Vol]9.0 mg/dLNormal8.5-10.5POhioHealth Hardin Memorial HospitalComment on above:Order Comment: See Springboard - Labs Due reportPerformed By: #### CMP ####[facility] ([facility])[address] [place] [address] [place] [address] VIRChloride [Moles/Vol]101 mmol/BUormjn67-618 [facility]deen HospitalComment on above:Order Comment: See Springboard - Labs Due reportPerformed By: #### CMP ####[facility] ([address] [place] [address] VIRCO2 [Moles/Vol]27 mmol/EUretwf26-82 Berger HospitalComc.s. [facility] on above:Order Comment: See Springboard - Labs Due reportPerformed By: #### CMP ####[facility] ([address] [address] VIRCreatinine [Mass/Vol]0.64 mg/dLLow 0.70-1.20ProMayhill HospitalComc.s. [facility] on above:Order Comment: See Springboard - Labs Due reportResult Comment: METHOD TRACEABLE TO IDMS STANDARD Performed By: #### CMP ####[address] [address] VIREGFR (CKD-EPI) NON-RACE DEPENDENT>^90Normal>=60 [facility] on above:Order Comment: See Springboard - Labs Due reportResult Comment: eGFR not reported due to non-numeric value for Creatinine.Reported eGFR is based ontheCKD-EPI 2020 equation that doesnot use a race coefficient.Performed By: #### CMP ####[facility] ([address] [place] [address] VIRGlucose [Mass/Vol]169 mg/dLHigh 65-99ProMayhill HospitalComc.s. [facility] on above:Order Comment: See Springboard - Labs Due reportPerformed By: #### CMP ####[facility] ([address] [place] [address] VIRPotassium [Moles/Vol]4.1 mmol/L Normal3.5-5.0Berger HospitalComc.s. [facility] on above:Order Comment: See Springboard - Labs Due reportPerformed By: #### CMP ####[facility] ([address] [address] VIRProtein [Mass/Vol]6.4 g/dLNormal6.0-8.0Berger HospitalComment on above:Order Comment: See Springboard - Labs Due reportPerformed By: #### CMP ####[facility] ([facility])[address] [place] [address] VIRSodium [Moles/Vol]137 mmol/RBxifxm743-596SchPfzygr [facility] HospitalComment on above: Order Comment: See Springboard - Labs Due reportPerformed By: #### CMP ####[facility] ([facility])[address] [place] [address] VIRUrea nitrogen [Mass/Vol]7 mg/dLNormal5-27[facility] Comment on above:Order Comment: See Springboard - Labs Due reportPerformed By: #### CMP ####[facility] ([facility])[address] [place] [address] VIRComprehensive metabolic panelon 96-68-8555Cekxmje [Mass/Vol]3.3 g/dL3.2 - 5.3 g/dLProMedica Health SystemALP [...] mmol/LProMedica Health SystemCreatinine [Mass/Vol]0.64 mg/dLLow0.70 - 1.20 mg/dLCleveland Clinic Marymount Hospital Comment on above:METHOD TRACEABLE TO IDKY STANDARDEGFR Non-Race Dependent- PINF [facility] HospitalComment on above:eGFR not reported due to non-numeric value for Creatinine. Reported eGFR is based on the CKD-EPI 2020 equation that does not use a race coefficient. Glucose [Mass/Vol]169 mg/jDXazt81 - 99 mg/dLCleveland Clinic Marymount Hospital Interpretation and review of laboratory resultsAbnoScionHealth Potassium [Moles/Vol]4.1 mmol/L3.5 - 5.0 mmol/LProMedica Health SystemProtein [Mass/Vol]6.4 g/dL6.0 - 8.0 g/dLAtrium Healthodium [Moles/Vol]137 mmol/L134 - 146 mmol/Formerly [facility]pl[facility] HospitaloMedMercy Health Allen Hospital SystemUrea nitrogen [Mass/Vol]7 mg/dL5 - 27 mg/dLTyler Memorial HospitalPET CT SKULL TO THIGHon [id number] CT SKULL TO THIGHNoUniversity Hospitals Elyria Medical CenterTHYROID PROFILE INCLUDES TSH FT4on 33-41-5062Yywo T4 [Mass/Vol]1.11 ng/dLNormal0.61-1.60 Berger HospitalComment on above:Performed By: #### THYR ####[facility] ([address] VIRTSH3.09 uIU/mLNormal0.49-4.67Berger HospitalComment on above:Performed By: #### THYR ####[facility] ([address] [id number] VIRThyroid profile includes TSH FT4on 11-33-8832Vzaw T4 [Mass/Vol]1.11 ng/dL0.61 - 1.60 ng/dLCleveland Clinic Marymount HospitalInterpretation and review of laboratory resultsNoCommunity Health Qn3.09 m[IU]/L [facility] WITH AUTO DIFFERENTIALon 35-44-6413Cnyv form neutrophils/100 WBC (Bld)1 %NormalBerger Hospital Comment on above:Order Comment: See Springboard - Labs Due report.Result Comment: This is an appended report. These results have been appended to a previously preliminary verified report.Performed By: #### CBCA ####[facility]ENTERTr[facility] ([facility])[address] [place] [address], [id number] VIR CELLAVISION ATYPICAL LYMPHOCYTES RELATIVE PERCENT BY MANUAL COUNT3 %Normal Berger HospitalComc.s. [facility] on above:Order Comment: See Springboard - Labs Due report.Result Comment: This is an appended report. These results have been appended to a previously preliminary verified report.Performed By: #### CBCA ####[facility] ([address], [id number] VIRCELLAVISION DIFFERENTIAL TYPEMANUAL DIFFERENTIALNormalBerger HospitalComc.s. [facility] on above:Order Comment: See Springboard - Labs Due report.Result Comment: This is an appended report. These results have been appended to a previously preliminary verified report.Performed By: #### CBCA ####[facility] ([address], [id number] VIR CELLAVISION EOSINOPHILS ABSOLUTE COUNT (10*3/UL) BY MANUAL COUNT0.2 10*3/uL Normal0.0-0.4[facility] on above:Order Comment: See Springboard - Labs Due report.Result Comment: This is an appended report. These results have been appended to a previously preliminary verified report.Performed By: #### CBCA ####[facility]ENTERTr[facility] ([address], [id number] VIRCELLAVISION EOSINOPHILS PERCENT BY MANUAL COUNT2 %Normal [facility] on above:Order Comment: See Springboard - Labs Due report.Result Comment: This is an appended report. These results have been appended to a previously preliminary verified report.Performed By: #### CBCA ####[facility] ([address], [id number] VIRCELLAVISION LYMPHOCYTES ABSOLUTE COUNT (10*3/UL) BY MANUAL COUNT6.2 10*3/uL High1.0-3.5PMercy Health St. [facility] on above:Order Comment: See Springboard - Labs Due report.Result Comment: This is an appended report. These results have been appended to a previously preliminary verified report.Performed By: #### CBCA ####[facility] ([facility])[address] [place] [address], [id number] VIRCELLAVISION LYMPHOCYTES RELATIVE PERCENT BY MANUAL COUNT 48 %NormalProBaylor Scott & White [facility] Center [facility] [place] on above:Order Comment: See Springboard - Labs Due report.Result Comment: This is an appended report. These results have been appended to a previously preliminary verified report.Performed By: #### CBCA ####[facility] ([address], [id number] VIRCELLAVISION MONOCYTES ABSOLUTE COUNT (10*3/UL) IN BLOOD BY MANUAL COUNT1.1 10*3/uLHigh0.0-0.9[facility] on above: Order Comment: See Springboard - Labs Due report.Result Comment: This is an appended report. These results have been appended to a previously preliminary verified report.Performed By: #### CBCA ####[facility]ENTERTr[facility] ([address], [id number] VIRCELLAVISION MONOCYTES RELATIVE PERCENT BY MANUAL COUNT9 %NormalDetwiler Memorial Hospital on above:Order Comment: See Springboard - Labs Due report.Result Comment: This is an appended report. These results have been appended to a previously preliminary verified report.Performed By: #### CBCA ####[facility] ([address], [id number] VIRCELLAVISION MYELOCYTE RELATIVE PERCENT BY MANUAL COUNT1 %NormalDetwiler Memorial Hospital on above:Order Comment: See Springboard - Labs Due report.Result Comment: This is an appended report. These results have been appended to a previously preliminary verified report. Performed By: #### CBCA ####[facility] ([facility])[address] [place] [address], [id number] VIRCELLAVISION NEUTROPHILS ABSOLUTE COUNT BY MANUAL COUNT4.4 10*3/uLNormal1.5-6.6[facility] on above:Order Comment: See Springboard - Labs Due report.Result Comment: This is an appended report. These results have been appended to a previously preliminary verified report.Performed By: #### CBCA ####[facility]ENTERTr[facility] ([facility])[address] [place] [address], [id number] VIRCELLAVISION NEUTROPHILS RELATIVE PERCENT BY MANUAL COUNT36 %NormalProBaylor Scott & White Medical Center – [place] on above:Order Comment: See Springboard - Labs Due report.Result Comment: This is an appended report. These results have been appended to a previously preliminary verified report. Performed By: #### CBCA ####[facility]ENTERTrang [facility] ([facility])[address] [place] [address], [id number] VIRCELLAVISION TARGET CELLS IN BLOOD BY LIGHT MICROSCOPY1+NormalProBaylor Scott & White Medical Center – [place] on above:Order Comment: See AngleWareboard - Labs Due report.Result Comment: This is an appended report. These results have been appended to a previously preliminary verified report.Performed By: #### CBCA ####[facility]ENTERTrang [facility] ([facility])[address] [place] [address], [id number] VIRErythrocyte distribution width (RBC) [Ratio]21.2 %High 11.5-15ProBaylor Scott & White Medical Center – [place] on above:Order Comment: See AngleWareboard - Labs Due report.Performed By: #### CBCA ####[facility] ([facility])[address] [place] [address], [id number] VIRHematocrit (Bld) [Volume fraction]39.7 %Ovlnuy36-65VjsSefzymDetwiler Memorial Hospital on above:Order Comment: See Springboard - Labs Due report.Performed By: #### CBCA ####[facility] ([address], [id number] VIRHemoglobin (Bld) [Mass/Vol]13.1 g/yMAfnndq33-62UhmChktveBerger HospitalComment on above: Order Comment: See Springboard - Labs Due report.Performed By: #### CBCA ####[facility] ([address], [id number] VIRMCH (RBC) [Entitic mass]30.5 xzNvhlvh49-53KrsZjfzpbMayhill HospitalComment on above:Order Comment: See Springboard - Labs Due report.Performed By: #### CBCA ####[facility] ([address] [place] [address] VIRMCHC (RBC) [Mass/Vol]32.9 g/sEFqpusr93-17GenYchldsBerger Hospital Comment on above:Order Comment: See Springboard - Labs Due report.Performed By: #### CBCA ####[facility] ([address], [id number] VIRMCV (RBC) [Entitic vol]93 cVCjwgjz04-017VnaDtmmirBerger HospitalComc.s. [facility] on above:Order Comment: See Springboard - Labs Due report.Performed By: #### CBCA ####[facility] ([address], [id number] VIRPlatelet mean volume (Bld) [Entitic vol]9.6 fLNormal7-12POhioHealth Hardin Memorial HospitalComment on above:Order Comment: See Springboard - Labs Due report.Performed By: #### CBCA ####[facility] ([address], [id number] VIRPlatelets (Bld) [#/Vol]392 10*3/bWUcnilq453-980BnjHuauzuBerger HospitalComc.s. [facility] on above:Order Comment: See Springboard - Labs Due report.Performed By: #### CBCA ####[facility] ([address], [place] VIRRBC COUNT 4.29 X10E12/LNormal4.1-5.7Berger HospitalComment on above:Order Comment: See Springboard - Labs Due report.Performed By: #### CBCA ####[facility] ([address] [place], [place] VIRWBC (Bld) [#/Vol]12.0 10*3/uLHigh4-11Berger HospitalComc.s. [facility] on above:Order Comment: See Springboard - Labs Due report.Performed By: #### CBCA ####[facility] ([address] [id number] VIR COMPREHENSIVE METABOLIC PANELon 57-71-4942Eaovqnj [Mass/Vol]3.2 g/dLNormal 3.2-5.3POhioHealth Hardin Memorial HospitalComment on above:Order Comment: See Springboard - Labs Due reportPerformed By: #### CMP ####[facility] ([address] [place] [address] VIRALP [Catalytic activity/Vol]88 U/L Wqjxvx82-182YfrAluanoMayhill HospitalComc.s. [facility] on above:Order Comment: See Springboard - Labs Due reportPerformed By: #### CMP ####[facility] ([address] [place] [address] VIRALT [Catalytic activity/Vol]26 U/LNormal<=40ProMayhill HospitalComment on above:Order Comment: See Springboard - Labs Due reportPerformed By: #### CMP ####[facility] ([address] [place] [address] VIRAnion gap [Moles/Vol]10 mmol/LNormal5-15ProMayhill HospitalComment on above:Order Comment: See Springboard - Labs Due reportPerformed By: #### CMP ####[facility] ([address] [place] [address] VIRAST [Catalytic activity/Vol]32 U/LNormal<=41ProMayhill HospitalComment on above:Order Comment: See Springboard - Labs Due reportPerformed By: #### CMP ####[facility] ([address], [place] [address] VIRBilirubin [Mass/Vol]0.2 mg/dLLow0.3-1.2POhioHealth Hardin Memorial HospitalComment on above:Order Comment: See Springboard - Labs Due reportPerformed By: #### CMP ####[facility] ([address], [place] [address] VIRCalcium [Mass/Vol]8.7 mg/dLNormal8.5-10.5POhioHealth Hardin Memorial Hospital Comment on above:Order Comment: See Springboard - Labs Due reportPerformed By: #### CMP ####[facility] ([address] [address] VIRChloride [Moles/Vol]101 mmol/ZWbexys95-792GyrNcvmfhBerger HospitalComment on above:Order Comment: See Springboard - Labs Due reportPerformed By: #### CMP ####[facility] ([address] [place] [address] VIRCO2 [Moles/Vol]26 mmol/MQewnvr40-52QqiZzibsiOhioHealth Hardin Memorial HospitalComment on above:Order Comment: See Springboard - Labs Due reportPerformed By: #### CMP ####[facility] ([address] [address] VIRCreatinine [Mass/Vol]0.84 mg/dLNormal 0.70-1.20Berger HospitalComment on above:Order Comment: See Springboard - Labs Due reportResult Comment: METHOD TRACEABLE TO IDMS STANDARD Performed By: #### CMP ####[facility] ([facility])[address] [place] [address] [place] [address] VIREGFR (CKD-EPI) NON-RACE DEPENDENT>^90Normal>=60 [facility] on above:Order Comment: See Springboard - Labs Due reportResult Comment: eGFR not reported due to non-numeric value for Creatinine.Reported eGFR is based ontheCKD-EPI 2020 equation that doesnot use a race coefficient.Performed By: #### CMP ####[facility] ([address] [place] [address] VIRGlucose [Mass/Vol]136 mg/dLHigh 65-99ProMayhill HospitalComment on above:Order Comment: See Springboard - Labs Due reportPerformed By: #### CMP ####[facility] ([address] [place] [address] VIRPotassium [Moles/Vol]4.3 mmol/L Normal3.5-5.0Berger HospitalComment on above:Order Comment: See Springboard - Labs Due reportPerformed By: #### CMP ####[facility] ([address] [place] [address] VIRProtein [Mass/Vol]6.3 g/dLNormal6.0-8.0Berger HospitalComment on above:Order Comment: See Springboard - Labs Due reportPerformed By: #### CMP ####[facility] ([address] [place] [address] VIRSodium [Moles/Vol]137 mmol/HYfkybp897-949QkeVsugut Fremont HospitalComment on above: Order Comment: See Springboard - Labs Due reportPerformed By: #### CMP ####[facility] ([address], [place] [address] VIRUrea nitrogen [Mass/Vol]13 mg/dLNormal5-27ProBaypointe Hospitalmont Hospital Comment on above:Order Comment: See Springboard - Labs Due reportPerformed By: #### CMP ####[facility] ([facility])[address] [place] [address].[place] [address] VIRTHYROID PROFILE INCLUDES TSH FT4on [id number] T4 [Mass/Vol]1.17 ng/dLNormal0.61-1.60Berger HospitalComment on above: Performed By: #### THYR ####[facility] ([facility])[address] [place] [address].[place], [id number] VIRTSH2.97 uIU/mLNormal0.49-4.67ProMayhill HospitalComment on above:Performed By: #### THYR ####[facility] ([address], [id number] VIRCBC WITH AUTO DIFFERENTIAL on 06-32-4374Mxyr form neutrophils/100 WBC (Bld)1 %NormalProMayhill HospitalComment on above:Order Comment: See Springboard - Labs Due report.Result Comment: This is an appended report. These results have been appended to a previously preliminary verified report.Performed By: #### CBCA ####[facility] ([facility])[address] [place] [address].[place], [id number] VIR CELLAVISION ATYPICAL LYMPHOCYTES RELATIVE PERCENT BY MANUAL COUNT1 %Normal Berger HospitalComc.s. [facility] on above:Order Comment: See Springboard - Labs Due report.Result Comment: This is an appended report. These results have been appended to a previously preliminary verified report.Performed By: #### CBCA ####[facility] ([facility])[address] [place] [address].[place], [id number] VIRCELLAVISION DIFFERENTIAL TYPEMANUAL DIFFERENTIALNormalBerger HospitalComc.s. [facility] on above:Order Comment: See Springboard - Labs Due report.Result Comment: This is an appended report. These results have been appended to a previously preliminary verified report.Performed By: #### CBCA ####[facility] ([facility])[address] [place] [address], [id number] VIR CELLAVISION EOSINOPHILS ABSOLUTE COUNT (10*3/UL) BY MANUAL COUNT0.6 10*3/uLHigh 0.0-0.4ProBaylor Scott & White [facility] on above:Order Comment: See Springboard - Labs Due report.Result Comment: This is an appended report. These results have been appended to a previously preliminary verified report.Performed By: #### CBCA ####[facility]ENTERTrang [facility] ([facility])[address] [place] [address], [id number] VIRCELLAVISION EOSINOPHILS PERCENT BY MANUAL COUNT3 %Normal [facility] on above:Order Comment: See Springboard - Labs Due report.Result Comment: This is an appended report. These results have been appended to a previously preliminary verified report.Performed By: #### CBCA ####[facility]ENTERTrang [facility] ([address], [id number] VIRCELLAVISION LYMPHOCYTES ABSOLUTE COUNT (10*3/UL) BY MANUAL COUNT6.7 10*3/uL High1.0-3.5PMercy Health St. [facility] on above:Order Comment: See Springboard - Labs Due report.Result Comment: This is an appended report. These results have been appended to a previously preliminary verified report.Performed By: #### CBCA ####[facility]ENTERTr[facility] ([address], [id number] VIRCELLAVISION LYMPHOCYTES RELATIVE PERCENT BY MANUAL COUNT 35 %NormalDetwiler Memorial Hospital on above:Order Comment: See Springboard - Labs Due report.Result Comment: This is an appended report. These results have been appended to a previously preliminary verified report.Performed By: #### CBCA ####[facility]A [facility] ([address], [id number] VIRCELLAVISION MONOCYTES ABSOLUTE COUNT (10*3/UL) IN BLOOD BY MANUAL COUNT2.2 10*3/uLHigh0.0-0.9ProBaylor Scott & White [facility] [place] on above: Order Comment: See Springboard - Labs Due report.Result Comment: This is an appended report. These results have been appended to a previously preliminary verified report.Performed By: #### CBCA ####[facility] ([facility])[address] [place] [address], [id number] VIRCELLAVISION MONOCYTES RELATIVE PERCENT BY MANUAL COUNT12 %NormalProBaylor Scott & White Medical Center – [place] on above: Order Comment: See Springboard - Labs Due report.Result Comment: This is an appended report. These results have been appended to a previously preliminary verified report.Performed By: #### CBCA ####[facility] ([facility])[address] [place] [address], [id number] VIRCELLAVISION MYELOCYTE RELATIVE PERCENT BY MANUAL COUNT1 %NormalDetwiler Memorial Hospital on above:Order Comment: See Springboard - Labs Due report.Result Comment: This is an appended report. These results have been appended to a previously preliminary verified report.Performed By: #### CBCA ####[facility] ([facility])[address] [place] [address], [id number] VIRCELLAVISION NEUTROPHILS ABSOLUTE COUNT BY MANUAL COUNT8.8 10*3/uLHigh1.5-6.6[facility] on above: Order Comment: See Springboard - Labs Due report.Result Comment: This is an appended report. These results have been appended to a previously preliminary verified report.Performed By: #### CBCA ####[facility] ([facility])[address] [place] [address], [id number] VIRCELLAVISION NEUTROPHILS RELATIVE PERCENT BY MANUAL COUNT47 %NormalProMayhill HospitalComc.s. [facility] on above: Order Comment: See Springboard - Labs Due report.Result Comment: This is an appended report. These results have been appended to a previously preliminary verified report.Performed By: #### CBCA ####[facility] ([facility])[address] [place] [address], [id number] VIRCELLAVISION NUCLEATED RED BLOOD CELLS IN BLOOD BY LIGHT TRYZFCMLUP1XydyelWoyXcoaviBaylor Scott & White Medical Center – [place] on above:Order Comment: See Springboard - Labs Due report.Result Comment: This is an appended report. These results have been appended to a previously preliminary verified report.Performed By: #### CBCA ####[facility] ([facility])[address] [place] [address] AVE[facility], [id number] VIRCELLAVISION POLYCHROMASIA IN BLOOD BY LIGHT MICROSCOPY1+NormalDetwiler Memorial Hospital on above:Order Comment: See Springboard - Labs Due report.Result Comment: This is an appended report. These results have been appended to a previously preliminary verified report.Performed By: #### CBCA ####[facility]ENTERTrang [facility] ([address], [id number] VIRCELLAVISION TARGET CELLS IN BLOOD BY LIGHT MICROSCOPY1+NormalDetwiler Memorial Hospital on above:Order Comment: See Springboard - Labs Due report.Result Comment: This is an appended report. These results have been appended to a previously preliminary verified report.Performed By: #### CBCA ####[facility] ([address], [id number] VIRErythrocyte distribution width (RBC) [Ratio]20.1 %High 11.5-15[facility] on above:Order Comment: See AngleWareboard - Labs Due report.Performed By: #### CBCA ####[facility]ENTERTrang [facility] ([facility])[address] [place] [address].[facility], [id number] VIRHematocrit (Bld) [Volume fraction]39.2 %Msektq25-88MflAfonrbDetwiler Memorial Hospital on above:Order Comment: See AngleWareboard - Labs Due report.Performed By: #### CBCA ####[facility] ([address], [id number] VIRHemoglobin (Bld) [Mass/Vol]12.8 g/cXZqa60-10HmaUlihhgBerger HospitalComment on above: Order Comment: See Springboard - Labs Due report.Performed By: #### CBCA ####[facility] ([address] [id number] VIRMCH (RBC) [Entitic mass]30.1 muApxuow58-64BihKzhdcvBerger HospitalComment on above:Order Comment: See Springboard - Labs Due report.Performed By: #### CBCA ####[facility] ([facility])[address] [place] [address].[facility] [place] [address] VIRMCHC (RBC) [Mass/Vol]32.5 g/fVAtwuvh51-09NkmSpfozhBerger Hospital Comment on above:Order Comment: See Springboard - Labs Due report.Performed By: #### CBCA ####[facility] ([address], [id number] VIRMCV (RBC) [Entitic vol]93 cZRjzsal91-447KzxLopusrBerger HospitalComment on above:Order Comment: See Springboard - Labs Due report.Performed By: #### CBCA ####[facility] ([address] [id number] VIRPlatelet mean volume (Bld) [Entitic vol]9.7 fLNormal7-12POhioHealth Hardin Memorial HospitalComment on above:Order Comment: See Springboard - Labs Due report.Performed By: #### CBCA ####[facility] ([address] [id number] VIRPlatelets (Bld) [#/Vol]323 10*3/jIGxnmgz695-807EilPckipnBerger HospitalComc.s. [facility] on above:Order Comment: See Springboard - Labs Due report.Performed By: #### CBCA ####[facility] ([address] [id number] VIRRBC COUNT 4.23 X10E12/LNormal4.1-5.7Berger HospitalComment on above:Order Comment: See Springboard - Labs Due report.Performed By: #### CBCA ####[facility] ([facility])[address] [place] [address] AVE.[place], [id number] VIRWBC (Bld) [#/Vol]18.5 10*3/uLHigh4-11ProMayhill HospitalComment on above:Order Comment: See Springboard - Labs Due report.Performed By: #### CBCA ####[facility]A [facility] ([facility])[address] [place] [address] AVE.[place], [id number] VIRCBC auto differentialon 44-81-2660Smbp form neutrophils/100 WBC (Bld)1 %[facility] HospitalComment on above:This is an appended report. These results have been appended to a previously preliminary verified report.Differential cell count method Nom (Bld)MANUAL DIFFERENTIALCleveland Clinic Marymount HospitalComment on above:This is an appended report. These results have been appended to a previously preliminary verified report.Eosinophils (Bld) [#/Vol]0.6 10*3/uLHigh0.0 - 0.4 10*3/uLCleveland Clinic Marymount HospitalComment on above:This is an appended report. These results have been appended to a previously preliminary verified report. Eosinophils/100 WBC (Bld)3 %[facility] HospitalComment on above:This is an appended report. These results have been appended to a previously preliminary verified report.Erythrocyte distribution width (RBC) [Ratio]20.1 %High11.5 - 15 %[facility] SystemHematocrit (Bld) [Volume fraction]39.2 %39 - 50 % [facility] HospitalHemoglobin (Bld) [Mass/Vol]12.8 g/dLLow13 - 17 g/dL [facility] HospitalInterpretation and review of laboratory resultsAbnormal [facility] HospitalLymphocytes (Bld) [#/Vol]6.7 10*3/uLHigh1.0 - 3.5 10*3/uL [facility] HospitalComment on above:This is an appended report. These results have been appended to a previously preliminary verified report.MCH (RBC) [Entitic mass]30.1 pg27 - 34 [facility] HospitalMCHC (RBC) [Mass/Vol]32.5 g/dL32 - 36 g/dLCleveland Clinic Marymount HospitalMCV (RBC) [Entitic vol]93 fL80 - 100 fL [facility] HospitalMonocytes (Bld) [#/Vol]2.2 10*3/uLHigh0.0 - 0.9 10*3/uL [facility] HospitalComment on above:This is an appended report. These results have been appended to a previously preliminary verified report. Monocytes/100 WBC (Bld)12 %[facility] HospitalComment on above:This is an appended report. These results have been appended to a previously preliminary verified report.Myelocytes/100 WBC (Bld)1 %[facility] HospitalComment on above:This is an appended report. These results have been appended to a previously preliminary verified report.Neutrophils (Bld) [#/Vol]8.8 10*3/uLHigh 1.5 - 6.6 10*3/uLCleveland Clinic Marymount HospitalComment on above:This is an appended report. These results have been appended to a previously preliminary verified re port.Neutrophils/100 WBC (Bld)47 %[facility] HospitalComment on above:This is an appended report. These results have been appended to a previously preliminary verified report.wBVO5FxvAjpj[address] [place], [place] [address]Comment on above:This is an appended report. These results have been appended to a previously preliminary verified report.Platelet mean volume (Bld) [Entitic vol]9.7 fL7 - 12 [facility] Blue SpringsPlatelets (Bld) [#/Vol]323 10*3/uLCleveland Clinic Marymount HospitalPolychromasia LM Ql (Bld)1+[facility] HospitalComment on above:This is an appended report. These results have been appended to a previously preliminary verified report.RBC (Bld) [#/Vol]4.23 10*6/uLCleveland Clinic Marymount Hospital Target cells LM Ql (Bld)1+[facility] HospitalComment on above:This is an appended report. These results have been appended to a previously preliminary verified report.Variant lymphocytes/100 WBC (Bld)35 %[facility] Comment on above:This is an appended report. These results have been appended to a previously preliminary verified report.Variant lymphocytes/100 WBC (Bld)1 % [facility] HospitalComment on above:This is an appended report. These results have been appended to a previously preliminary verified report.WBC LM Ql (Sput)18.5HUniversity of Pennsylvania Health SystemCOMPREHENSIVE METABOLIC PANELon 51-28-1494Gopnqdp [Mass/Vol]3.4 g/dLNormal3.2-5.3POhioHealth Hardin Memorial HospitalComment on above:Order Comment: See Springboard - Labs Due reportPerformed By: #### CMP ####[facility] ([facility])[address] [place] [address] [place] [address] VIRALP [Catalytic activity/Vol]97 U/LNormal 39-130ProMayhill HospitalComment on above:Order Comment: See Springboard - Labs Due reportPerformed By: #### CMP ####[facility] ([facility])[address] [place] [address] [place] [address] VIRALT [Catalytic activity/Vol]28 U/L Normal<=40Berger HospitalComment on above:Order Comment: See Springboard - Labs Due reportPerformed By: #### CMP ####[facility] ([facility])[address] [place], [place] [address] [place] [address] VIRAnion gap [Moles/Vol]6 mmol/LNormal5-15ProMayhill HospitalComment on above:Order Comment: See Springboard - Labs Due reportPerformed By: #### CMP ####[facility] ([facility])[address] [place] [address] [place] [address] VIRAST [Catalytic activity/Vol]30 U/LNormal<=41ProMayhill HospitalComment on above:Order Comment: See Springboard - Labs Due reportPerformed By: #### CMP ####[facility] ([facility])[address] [place] [address] [address]VE[place], [place] [address] VIRBilirubin [Mass/Vol]0.4 mg/dLNormal0.3-1.2POhioHealth Hardin Memorial Hospital Comment on above:Order Comment: See Springboard - Labs Due reportPerformed By: #### CMP ####[facility] ([address] [place] [address] VIRCalcium [Mass/Vol]8.8 mg/dLNormal8.5-10.5POhioHealth Hardin Memorial HospitalComment on above:Order Comment: See Springboard - Labs Due reportPerformed By: #### CMP ####[facility] ([address] [place] [address] VIRChloride [Moles/Vol]103 mmol/EQlzucg06-658 Berger HospitalComment on above:Order Comment: See Springboard - Labs Due reportPerformed By: #### CMP ####[facility] ([address] [place] [address] VIRCO2 [Moles/Vol]27 mmol/ZBeshnt79-67 Berger HospitalComment on above:Order Comment: See Springboard - Labs Due reportPerformed By: #### CMP ####[facility] ([address] [place] [address] VIRCreatinine [Mass/Vol]0.81 mg/dL Normal0.70-1.20Berger HospitalComment on above:Order Comment: See Springboard - Labs Due reportResult Comment: METHOD TRACEABLE TO IDMS STANDARD Performed By: #### CMP ####[facility] ([address] [place] [address] VIREGFR (CKD-EPI) NON-RACE DEPENDENT>^90Normal>=60 Berger HospitalComment on above:Order Comment: See Springboard - Labs Due reportResult Comment: eGFR not reported due to non-numeric value for Creatinine.Reported eGFR is based ontheCKD-EPI 2020 equation that doesnot use a race coefficient.Performed By: #### CMP ####[facility] ([address] [place] [address] VIRGlucose [Mass/Vol]106 mg/dLHigh 65-99ProMayhill HospitalComment on above:Order Comment: See Springboard - Labs Due reportPerformed By: #### CMP ####[facility] ([address] [address] VIRPotassium [Moles/Vol]4.4 mmol/L Normal3.5-5.0ProMayhill HospitalComment on above:Order Comment: See Springboard - Labs Due reportPerformed By: #### CMP ####[facility] ([address] [address] VIRProtein [Mass/Vol]6.7 g/dLNormal6.0-8.0ProMayhill HospitalComment on above:Order Comment: See Springboard - Labs Due reportPerformed By: #### CMP ####[facility] ([address] [address] VIRSodium [Moles/Vol]136 mmol/BBrdjyf162-367InbBachkq Fremont HospitalComment on above: Order Comment: See Springboard - Labs Due reportPerformed By: #### CMP ####[facility] ([address] [address] VIRUrea nitrogen [Mass/Vol]13 mg/dLNormal5-27ProMayhill Hospital Comment on above:Order Comment: See Springboard - Labs Due reportPerformed By: #### CMP ####[facility] ([address] [address] VIRComprehensive metabolic panelon 90-97-2605Upzzbfk [Mass/Vol]3.4 g/dL3.2 - 5.3 g/dLProBlanchard Valley Health System SystemALP [Catalytic activity/Vol]97 U/L39 - 130 U/LPrAdventHealth Porter Health SystemALT No additional P-5'-P [Catalytic activity/Vol]28 U/LNINF - 40 U/[facility] SystemAnion gap [Moles/Vol]6 mmol/L5 - 15 mmol/LPrAdventHealth Porter Health SystemAST [Catalytic activity/Vol]30 U/LNINF - 41 U/[facility] SystemBilirubin [Mass/Vol]0.4 mg/dL0.3 - 1.2 mg/dLBrown Memorial Hospital SystemCalcium [Mass/Vol]8.8 mg/dL8.5 - 10.5 mg/dLCleveland Clinic Marymount HospitalChloride [Moles/Vol]103 mmol/L98 - 109 mmol/L [facility] HospitalCO2 [Moles/Vol]27 mmol/L22 - 32 mmol/[facility] SystemCreatinine [Mass/Vol]0.81 mg/dL0.70 - 1.20 mg/dLCleveland Clinic Marymount Hospital Comment on above:METHOD TRACEABLE TO IDMS STANDARDEGFR Non-Race Dependent- PINF [facility] HospitalComment on above:eGFR not reported due to non-numeric value for Creatinine. Reported eGFR is based on the CKD-EPI 2020 equation that does not use a race coefficient. Glucose [Mass/Vol]106 mg/aJApyb05 - 99 mg/dLCleveland Clinic Marymount Hospital Interpretation and review of laboratory resultsAbnormalC[facility] Clinic [facility] Potassium [Moles/Vol]4.4 mmol/L3.5 - 5.0 mmol/[facility] SystemProtein [Mass/Vol]6.7 g/dL6.0 - 8.0 g/dLAtrium Healthodium [Moles/Vol]136 mmol/L134 - 146 mmol/[facility] SystemUrea nitrogen [Mass/Vol]13 mg/dL5 - 27 mg/dLTyler Memorial HospitalTHYROID PROFILE INCLUDES TSH FT4on 37-54-6365Juim T4 [Mass/Vol]1.12 ng/dLNormal0.61-1.60Berger HospitalComment on above:Performed By: #### THYR ####[facility] ([address] [id number] VIRTSH2.08 uIU/mLNormal 0.49-4.67Berger HospitalComment on above:Performed By: #### THYR ####[facility] HOSPITAL ([facility])[address] [place] [address], [id number] VIRThyroid profile includes TSH FT4on 22-58-6944Uded T4 [Mass/Vol]1.12 ng/dL 0.61 - 1.60 ng/dLCleveland Clinic Marymount HospitalInterpretation and review of laboratory resultsNoCommunity Health Qn2.08 m[IU]/Formerly [facility] HospitaloMedAscension Eagle River Memorial HospitalCBC WITH AUTO DIFFERENTIALon 31-24-5928Bipx form neutrophils/100 WBC (Bld)2 %NormalProMayhill HospitalComment on above: Order Comment: See Springboard - Labs Due report.Result Comment: This is an appended report. These results have been appended to a previously preliminary verified report.Performed By: #### CBCA ####[facility] ([address], [id number] VIRCELLAVISION ATYPICAL LYMPHOCYTES RELATIVE PERCENT BY MANUAL COUNT8 %NormalProMayhill HospitalComment on above:Order Comment: See Springboard - Labs Due report.Result Comment: This is an appended report. These results have been appended to a previously preliminary verified report.Performed By: #### CBCA ####[facility] ([address], [id number] VIRCELLAVISION BASOPHILS ABSOLUTE COUNT (10*3/UL) BY MANUAL COUNT0.2 10*3/uLNoUniversity Hospitals Elyria Medical Center Comment on above:Order Comment: See Springboard - Labs Due report.Result Comment: This is an appended report. These results have been appended to a previously preliminary verified report.Performed By: #### CBCA ####[facility] ([address] [id number] VIR CELLAVISION BASOPHILS RELATIVE PERCENT BY MANUAL COUNT1 %NormalDetwiler Memorial Hospital on above:Order Comment: See Springboard - Labs Due report. Result Comment: This is an appended report. These results have been appended to a previously preliminary verified report.Performed By: #### CBCA ####[facility] ([facility])[address] [place], [place] [id number] VIR CELLAVISION DIFFERENTIAL TYPECELLAVISION DIFFERENTIALNormalProBaylor Scott & White [facility] on above:Order Comment: See Springboard - Labs Due report.Result Comment: This is an appended report. These results have been appended to a previously preliminary verified report.Performed By: #### CBCA ####[facility]Tr[facility] ([address] VIR CELLAVISION EOSINOPHILS ABSOLUTE COUNT (10*3/UL) BY MANUAL COUNT0.6 10*3/uL [facility] on above:Order Comment: See Springboard - Labs Due report.Result Comment: This is an appended report. These results have been appended to a previously preliminary verified report.Performed By: #### CBCA ####[facility]Tr[facility] ([address] [place] [address] VIRCELLAVISION EOSINOPHILS PERCENT BY MANUAL COUNT3 %[facility] on above:Order Comment: See Springboard - Labs Due report.Result Comment: This is an appended report. These results have been appended to a previously preliminary verified report.Performed By: #### CBCA ####[facility]Tr[facility] ([address] [id number] VIRCELLAVISION LYMPHOCYTES ABSOLUTE COUNT (10*3/UL) BY MANUAL COUNT5.3 10*3/uL NormalDetwiler Memorial Hospital on above:Order Comment: See Springboard - Labs Due report.Result Comment: This is an appended report. These results have been appended to a previously preliminary verified report.Performed By: #### CBCA ####[facility] ([facility])[address] [place] [address], [place] [address] VIRCELLAVISION LYMPHOCYTES RELATIVE PERCENT BY MANUAL COUNT21 %Normal [facility] on above:Order Comment: See Springboard - Labs Due report.Result Comment: This is an appended report. These results have been appended to a previously preliminary verified report.Performed By: #### CBCA ####[facility] ([address], [id number] VIRCELLAVISION MONOCYTES ABSOLUTE COUNT (10*3/UL) IN BLOOD BY MANUAL COUNT1.3 10*3/uLNormalDetwiler Memorial Hospital on above:Order Comment: See Springboard - Labs Due report.Result Comment: This is an appended report. These results have been appended to a previously preliminary verified report.Performed By: #### CBCA ####[facility] ([address], [id number] VIRCELLAVISION MONOCYTES RELATIVE PERCENT BY MANUAL COUNT7 %NormalDetwiler Memorial Hospital on above:Order Comment: See Springboard - Labs Due report.Result Comment: This is an appended report. These results have been appended to a previously preliminary verified report.Performed By: #### CBCA ####[facility]ENTERTr[facility] ([address], [id number] VIRCELLAVISION MYELOCYTE RELATIVE PERCENT BY MANUAL COUNT3 %NormalDetwiler Memorial Hospital on above:Order Comment: See Springboard - Labs Due report.Result Comment: This is an appended report. These results have been appended to a previously preliminary verified report.Performed By: #### CBCA ####[facility] ([address], [id number] VIRCELLAVISION NEUTROPHILS ABSOLUTE COUNT BY MANUAL COUNT 10.6 10*3/uLNormalProMayhill HospitalComc.s. [facility] on above:Order Comment: See Springboard - Labs Due report.Result Comment: This is an appended report. These results have been appended to a previously preliminary verified report.Performed By: #### CBCA ####[facility] ([facility])[address], [id number] VIRCELLAVISION NEUTROPHILS RELATIVE PERCENT BY MANUAL COUNT 55 %NormalDetwiler Memorial Hospital on above:Order Comment: See AngleWareboard - Labs Due report.Result Comment: This is an appended report. These results have been appended to a previously preliminary verified report.Performed By: #### CBCA ####[facility] ([facility])[address] [place] [address] AVE.[place], [id number] VIRCELLAVISION NUCLEATED RED BLOOD CELLS IN BLOOD BY LIGHT VLLTAMBVPH0ZmxmlpHhzKezxnwDetwiler Memorial Hospital on above:Order Comment: See uberall - Labs Due report.Result Comment: This is an appended report. These results have been appended to a previously preliminary verified report.Performed By: #### CBCA ####[facility] ([address], [id number] VIRErythrocyte distribution width (RBC) [Ratio]18.8 %High 11.5-15[facility] on above:Order Comment: See uberall - Labs Due report.Performed By: #### CBCA ####[facility] ([address]FR[facility]AL[facility] HOSPITALT, [id number] VIRHematocrit (Bld) [Volume fraction]38.8 %Kgb26-86VooHkmfrrDetwiler Memorial Hospital on above:Order Comment: See AngleWareboard - Labs Due report.Performed By: #### CBCA ####[facility] ([address], [id number] VIRHemoglobin (Bld) [Mass/Vol]12.7 g/wSDuu41-31FgiSlyjanDetwiler Memorial Hospital on above:Order Comment: See uberall - Labs Due report.Performed By: #### CBCA ####[facility] ([address], [id number] VIRMCH (RBC) [Entitic mass]29.8 duTdlfdp50-69HskNvrwfqBerger HospitalComc.s. [facility] on above: Order Comment: See Springboard - Labs Due report.Performed By: #### CBCA ####[facility] ([facility])[address] [place] [address].[place], [id number] VIRMCHC (RBC) [Mass/Vol]32.8 g/pSAfgeag61-13BsvCgfnywBerger HospitalComc.s. [facility] on above:Order Comment: See Springboard - Labs Due report.Performed By: #### CBCA ####[facility] ([facility])[address] [place] [address].[place], [id number] VIRMCV (RBC) [Entitic vol]91 tJGhwsfu40-142EpcOlwsehBerger HospitalComc.s. [facility] on above:Order Comment: See Springboard - Labs Due report.Performed By: #### CBCA ####[facility] ([address], [id number] VIRPlatelet mean volume (Bld) [Entitic vol]9.9 fLNormal7-12POhioHealth Hardin Memorial HospitalComc.s. [facility] on above:Order Comment: See Springboard - Labs Due report. Performed By: #### CBCA ####[facility] ([address], [id number] VIRPlatelets (Bld) [#/Vol]289 10*3/oNExkfqs084-816 Berger HospitalComc.s. [facility] on above:Order Comment: See Springboard - Labs Due report.Performed By: #### CBCA ####[facility] ([address], [id number] VIRRBC COUNT4.26 X10E12/LNormal4.1-5.7 [facility] on above:Order Comment: See Springboard - Labs Due report.Performed By: #### CBCA ####[facility] ([facility])[address] [place] [address].[place], [place] VIRWBC (Bld) [#/Vol]18.4 10*3/uLHigh 4-11Berger HospitalComment on above:Order Comment: See Springboard - Labs Due report.Performed By: #### CBCA ####[facility] ([facility] [address]AL[facility] HOSPITALBo, [id number] VIRCOMPREHENSIVE METABOLIC PANELon 24-88-0736Pgtetqr [Mass/Vol]3.4 g/dLNormal3.2-5.3POhioHealth Hardin Memorial Hospital Comment on above:Order Comment: See Springboard - Labs Due reportPerformed By: #### CMP ####[facility] ([place] [address] [place] [address] VIRALP [Catalytic activity/Vol]93 U/TAlfdcw76-624SulOxduldMayhill HospitalComment on above:Order Comment: See Springboard - Labs Due reportPerformed By: #### CMP ####[facility] ([place] [address] [place] [address] VIRALT [Catalytic activity/Vol]30 U/LNormal<=40 Berger HospitalComment on above:Order Comment: See Springboard - Labs Due reportPerformed By: #### CMP ####[facility] ([place] [address]FRESOUT[facility] [place] [address] VIRAnion gap [Moles/Vol]6 mmol/LNormal 5-15ProMayhill HospitalComment on above:Order Comment: See Springboard - Labs Due reportPerformed By: #### CMP ####[facility] ([place] [address] [place] [address] VIRAST [Catalytic activity/Vol]33 U/L Normal<=41Berger HospitalComment on above:Order Comment: See Springboard - Labs Due reportPerformed By: #### CMP ####[facility] ([place] [address] [address] VIRBilirubin [Mass/Vol]0.6 mg/dLNormal0.3-1.2POhioHealth Hardin Memorial HospitalComment on above:Order Comment: See Springboard - Labs Due reportPerformed By: #### CMP ####[facility] ([facility])[address] [place] [address] [place] [address] VIRCalcium [Mass/Vol]8.9 mg/dLNormal8.5-10.5POhioHealth Hardin Memorial HospitalComment on above: Order Comment: See Springboard - Labs Due reportPerformed By: #### CMP ####[facility] ([facility])[address] [place] [address] AV.[place], [place] [address] VIRChloride [Moles/Vol]102 mmol/JAidyyp40-997VcoVkxwejBerger Hospital Comment on above:Order Comment: See Springboard - Labs Due reportPerformed By: #### CMP ####[facility] ([address] [place] [address] VIRCO2 [Moles/Vol]28 mmol/URqqggc89-50AskLfxbjzOhioHealth Hardin Memorial HospitalComment on above:Order Comment: See Springboard - Labs Due report Performed By: #### CMP ####[facility] ([address] [place] [address] VIRCreatinine [Mass/Vol]0.82 mg/dLNormal0.70-1.20 Berger HospitalComment on above:Order Comment: See Springboard - Labs Due reportResult Comment: METHOD TRACEABLE TO IDMS STANDARDPerformed By: #### CMP ####[facility] ([address] [place] [address] VIREGFR (CKD-EPI) NON-RACE DEPENDENT>^90Normal>=60ProMayhill HospitalComment on above:Order Comment: See Springboard - Labs Due reportResult Comment: eGFR not reported due to non-numeric value for Creatinine.Reported eGFR is based ontheCKD-EPI 2020 equation that doesnot use a race coefficient. Performed By: #### CMP ####[facility] ([address] [place] [address] VIRGlucose [Mass/Vol]122 mg/bLBujy17-94WhiMgeincBerger HospitalComc.s. [facility] on above:Order Comment: See Springboard - Labs Due reportPerformed By: #### CMP ####[facility] ([address] [place] [address] VIRPotassium [Moles/Vol]4.5 mmol/LNormal3.5-5.0 Berger HospitalComment on above:Order Comment: See Springboard - Labs Due reportPerformed By: #### CMP ####[facility] ([address] [place] [address] VIRProtein [Mass/Vol]6.9 g/dLNormal 6.0-8.0Berger HospitalComc.s. mott children's hospital on above:Order Comment: See Springboard - Labs Due reportPerformed By: #### CMP ####[facility] ([address] [place] [address] VIRSodium [Moles/Vol]136 mmol/LNormal 134-146Berger HospitalComc.s. mott children's hospital on above:Order Comment: See Springboard - Labs Due reportPerformed By: #### CMP ####[facility] ([address] [place] [address] VIRUrea nitrogen [Mass/Vol]15 mg/dL Normal5-27ProMayhill HospitalComment on above:Order Comment: See Springboard - Labs Due reportPerformed By: #### CMP ####[facility] ([address] [place] [address] VIRComprehensive metabolic panelon 30-09-4550Okmmjnu [Mass/Vol]3.4 g/dL3.2 - 5.3 g/dLProBlanchard Valley Health System SystemALP [Catalytic activity/Vol]93 U/L39 - 130 U/LProMedica Health SystemALT No additional P-5'-P [Catalytic activity/Vol]30 U/LNINF - 40 U/L [facility] HospitalAnion gap [Moles/Vol]6 mmol/L5 - 15 mmol/LPrHedrick Medical Centerica Health SystemAST [Catalytic activity/Vol]33 U/LNINF - 41 U/LProMedica Health SystemBilirubin [Mass/Vol]0.6 mg/dL0.3 - 1.2 mg/dLBrown Memorial Hospital SystemCalcium [Mass/Vol]8.9 mg/dL8.5 - 10.5 mg/dLBrown Memorial Hospital SystemChloride [Moles/Vol] 102 mmol/L98 - 109 mmol/LPrAdventHealth Porter Health SystemCO2 [Moles/Vol]28 mmol/L22 - 32 mmol/[facility] SystemCreatinine [Mass/Vol]0.82 mg/dL0.70 - 1.20 mg/dL [facility] HospitalComment on above:METHOD TRACEABLE TO IDMS STANDARDEGFR Non-Race Dependent- [facility] Health SystemComment on above:eGFR not reported due to non-numeric value for Creatinine. Reported eGFR is based on the CKD-EPI 2020 equation that does not use a race coefficient. Glucose [Mass/Vol]122 mg/vNSaub52 - 99 mg/dLCleveland Clinic Marymount Hospital Interpretation and review of laboratory resultsAbnormalCleveland Clinic Marymount Hospital Potassium [Moles/Vol]4.5 mmol/L3.5 - 5.0 mmol/LPrAdventHealth Porter Health SystemProtein [Mass/Vol]6.9 g/dL6.0 - 8.0 g/dLAtrium Healthodium [Moles/Vol]136 mmol/L134 - 146 mmol/[facility] SystemUrea nitrogen [Mass/Vol]15 mg/dL5 - 27 mg/dLTyler Memorial HospitalTHYROID PROFILE INCLUDES TSH FT4on 11-29-8639Ayse T4 [Mass/Vol]1.07 ng/dLNormal0.61-1.60Berger HospitalComment on above:Performed By: #### THYR ####[facility] ([address] VIRTSH2.46 uIU/mLNormal 0.49-4.67Berger HospitalComment on above:Performed By: #### THYR ####[facility] ([facility])[address] [place] [id number] VIRThyroid profile includes TSH FT4on 87-41-1482Epow T4 [Mass/Vol]1.07 ng/dL 0.61 - 1.60 ng/dLCleveland Clinic Marymount HospitalInterpretation and review of laboratory resultsNormalCleveland Clinic Marymount HospitalTS Qn2.46 m[IU]/LProMedAscension Eagle River Memorial HospitalCBC AND AUTO DIFFon 55-58-5316Oqxmjzkgujz (Bld) [#/Vol] 3.4 10*3/uLHigh0.0-0.4Berger HospitalComment on above:Performed By: #### CMP, CBCA, THYR ####[facility] ([id number])[address] [place] [address]Avjhdicesaj/100 WBC (Bld)18.0 %Normal Berger HospitalComment on above:Performed By: #### CMP, CBCA, THYR ####[facility] ([id number])[address] [place] [address]Wvnpczijcda distribution width (RBC) [Ratio]17.1 %High 11.5-15.0Berger HospitalComment on above:Performed By: #### CMP, CBCA, THYR ####[facility] ([id number])[address] [place] [address]JPTOAPOL3+AbnormalNONEProMedArroyo Grande Community HospitalComment on above:Performed By: #### CMP, CBCA, THYR ####[facility] ([id number])[address] [place] [address]Ganmlgtvwm (Bld) [Volume fraction]39.7 %Ykcoqu91-53JzxAszfolMayhill HospitalComment on above: Performed By: #### CMP, CBCA, THYR ####[facility] ([id number])[address] [place] [address]Vbdwfwepzd (Bld) [Mass/Vol]13.0 g/wRShqlnc12.0-17.0ProMayhill HospitalComment on above:Performed By: #### CMP, CBCA, THYR ####[facility] ([id number])[address] [place] [address]IJTWLIIGSA, ATYPICAL2.0 %NormalProMayhill HospitalComment on above:Performed By: #### CMP, CBCA, THYR ####[facility] ([id number])[address] [place] [address] Lymphocytes (Bld) [#/Vol]6.4 10*3/uLHigh1.0-3.5ProMedica Patton State HospitalComment on above:Performed By: #### CMP, CBCA, THYR ####[facility] ([id number])[address] [place] [address]Hwgfwoopsda/100 WBC (Bld)32.0 %NormalBerger HospitalComment on above:Performed By: #### CMP, CBCA, THYR ####[facility] ([id number])[address] [place] [address]TGC (RBC) [Entitic mass]29.4 yuVhcgyc44-29 ProMedica Patton State HospitalComment on above:Performed By: #### CMP, CBCA, THYR ####[facility] ([id number])[address] [place] [address]TBOA (RBC) [Mass/Vol]32.7 g/sEUfytfm59-94HrfQpfrnlMayhill HospitalComment on above:Performed By: #### CMP, CBCA, THYR ####[facility] ([id number])[address] [place] [address] MCV (RBC) [Entitic vol]90 nQVajult18-477ZmmQjfdpaBerger HospitalComment on above:Performed By: #### CMP, CBCA, THYR ####[facility] ([id number])[address] [place] [address]Qggpzuyby (Bld) [#/Vol]1.3 10*3/uLHigh0-0.9Berger HospitalComc.s. [facility] on above:Performed By: #### CMP, CBCA, THYR ####[facility] ([id number])[address] [place] [address]Eyftwmyhf/100 WBC (Bld)7.0 %Normal ProMLos Alamitos Medical CenterComment on above:Performed By: #### CMP, CBCA, THYR ####[facility] ([id number])[address] [place] [address] 46062Rzdxjooksao (Bld) [#/Vol]7.6 10*3/uLHigh1.5-6.6Berger HospitalComc.s. [facility] on above:Performed By: #### CMP, CBCA, THYR ####[facility] ([id number])[address] [place] [address] Platelet mean volume (Bld) [Entitic vol]8.5 fLNormal7-12ProMedica Patton State HospitalComment on above:Performed By: #### CMP, CBCA, THYR ####[facility] ([id number])[address] [place] [address]Ounorgyom (Bld) [#/Vol]421 10*3/eMBnxmgq126-046BntRnhwaq [facility] HospitalComment on above: Performed By: #### CMP, CBCA, THYR ####[facility] ([id number])[address] [place] [address]34YJXYLDTHIJZVR1+AbnormalNONE Berger HospitalComment on above:Performed By: #### CMP, CBCA, THYR ####[facility] ([id number])[address] [place] [address]OJP COUNT4.40 X10E12/LNormal4.10-5.70ProMayhill HospitalComment on above:Performed By: #### CMP, CBCA, THYR ####[facility] ([id number])[address] [place] [address]XIW SDBDLOQDWF76.0 %NormalBerger HospitalComc.s. [facility] on above:Performed By: #### CMP, CBCA, THYR ####[facility] ([id number])[address] [place] [address] 31544PQLHTE9+AbnormalNONEProMedica Patton State HospitalComment on above:Performed By: #### CMP, CBCA, THYR ####[facility] ([id number])[address] [place] [address]QNU (Bld) [#/Vol]18.7 10*3/uLHigh4.0-11.0Berger HospitalComc.s. [facility] on above: Performed By: #### CMP, CBCA, THYR ####[facility] ([id number])[address] [place] [address]XWR auto differentialon 43-70-1079Flhtllbcjef (Bld) [#/Vol]3.4 10*3/uLHighWashington County Tuberculosis HospitalMedica Health System Eosinophils/100 WBC (Bld)18 %ProMedica Health SystemErythrocyte distribution width (RBC) [Ratio]17.1 %High11.5 - 15.0 %ProMedica Health SystemFragments LM Ql (Bld)1+AbnormalNONE^NONEProMedica Health SystemHematocrit (Bld) [Volume fraction]39.7 %39 - 49 %ProMedica Health SystemHemoglobin (Bld) [Mass/Vol]13 g/dL13.0 - 17.0 g/dLBrown Memorial Hospital SystemInterpretation and review of laboratory resultsAbnormalCleveland Clinic Marymount HospitalLymphocytes (Bld) [#/Vol]6.4 10*3/uLHighCleveland Clinic Marymount HospitalLymphocytes/100 WBC (Bld)32 %[facility] HospitalH (RBC) [Entitic mass]29.4 pg27 - 34 pgPToledo HospitalMCHC (RBC) [Mass/Vol]32.7 g/dL32 - 36 g/dLProAdena Fayette Medical CenterMCV (RBC) [Entitic vol]90 fL80 - 100 [facility] Blue SpringsMonocytes (Bld) [#/Vol]1.3 10*3/uLHigh [facility] HospitalMonocytes/100 WBC (Bld)7 %[facility] Neutrophils (Bld) [#/Vol]7.6 10*3/uLKindred Hospital Seattle - North Gate SystemPlatelet mean volume (Bld) [Entitic vol]8.5 fL7 - 12 [facility] Blue SpringsPlatelets (Bld) [#/Vol]421 10*3/uLBrown Memorial Hospital SystemPolychromasia LM Ql (Bld)1+Abnormal NONE^NONEFostoria City Hospital Health SystemRBC (Bld) [#/Vol]4.4 10*6/uLAtrium Healthegmented neutrophils/100 WBC (Bld)41 %[facility] HospitalTarget cells LM Ql (Bld)1+AbnormalNONE^[facility]ham HospitalVariant lymphocytes/100 WBC (Bld)2 %[facility] HospitalWBC corrected for nucl RBC Auto (Bld) [#/Vol] 18.7HighFroedtert West Bend Hospital SystemCOMPREHENSIVE METABOLIC PANELon 85-05-3952Yejypmr [Mass/Vol]3.4 g/dLNormal3.2-5.3POhioHealth Hardin Memorial HospitalComment on above:Performed By: #### CMP, CBCA, THYR ####[facility] ([id number])[address],[place], [place] [address]DKO [Catalytic activity/Vol]78 U/PNycngq23-730KhpRsufbgBerger HospitalComment on above:Performed By: #### CMP, CBCA, THYR ####[facility] ([id number])[address] [place] [address], [place] [address]PUN [Catalytic activity/Vol]25 U/LNormal0-40ProMayhill HospitalComment on above: Performed By: #### CMP, CBCA, THYR ####[facility] ([id number])[address] [place] [address], [place] [address]Upwbe gap [Moles/Vol]9 mmol/L Normal5-15ProMayhill HospitalComment on above:Performed By: #### CMP, CBCA, THYR ####[facility] ([id number])[address] [place] [address], [place] [address]BYO [Catalytic activity/Vol]37 U/LNormal0-41Berger HospitalComment on above:Performed By: #### CMP, CBCA, THYR ####[facility] ([id number])[address] [place] [address], [place] [address] Bilirubin [Mass/Vol]0.6 mg/dLNormal0.3-1.2POhioHealth Hardin Memorial HospitalComment on above:Performed By: #### CMP, CBCA, THYR ####[facility] ([id number])[address] [place] [address], [place] [address]Pnasgby [Mass/Vol] 9.3 mg/dLNormal8.5-10.5POhioHealth Hardin Memorial HospitalComment on above:Performed By: #### CMP, CBCA, THYR ####[facility] ([id number])[address] [place] [address], [place] [address]Byzesyug [Moles/Vol]99 mmol/IMtdzlx85-120 ProMLos Alamitos Medical CenterComment on above:Performed By: #### CMP, CBCA, THYR ####[facility] ([id number])[address] [place] [address] 18[address]OZ4 [Moles/Vol]28 mmol/EKwfopq25-37EeaOvxwbh [facility]ont HospitalComment on above:Performed By: #### OG DE [place] THYR ####[facility] ([id number])[address] [place] [address] 74569 Creatinine [Mass/Vol]1.00 mg/dLNormal0.70-1.20Berger HospitalComment on above:Result Comment: METHOD TRACEABLE TO IDMS STANDARDPerformed By: #### OG DE [place] SANTOS THYR ####[facility] ([id number])[address] [place] [address] 87899QDQ/1.73 sq M.predicted among non-blacks MDRD (S/P/Bld) [Vol rate/Area]83 mL/min/{1.73_m2}Normal>59[facility] Comment on above:Result Comment: Reported eGFR is based on theCKD-EPI 2020 equation that doesnot use a race coefficient.Performed By: #### OG DE [place] SANTOS THYR ####[facility] ([id number])[address] [place] [address] [id number] [Mass/Vol]121 mg/hLAuyn74-55BtcOvhybpMayhill HospitalComment on above:Performed By: #### OG DE LOS SANTOS THYJessica ####[facility] ([id number])[address] [place] [address] 19819 Potassium [Moles/Vol]4.7 mmol/LNormal3.5-5.0Berger HospitalComment on above:Performed By: #### OG DE LOS SANTOS, THYR ####[facility] ([id number])[address] [place] [address] 21999Jnynksb [Mass/Vol] 7.4 g/dLNormal6.0-8.0ProBlanchard Valley Health System [facility] Hospitalca Aberdeen HospitalComment on above:Performed By: #### OG DE LOS SANTOS, THYR ####[facility] ([id number])[address] [place] [address] 53062Atbmjc [Moles/Vol]136 mmol/ROefced307-275 [facility] HospitalComment on above:Performed By: #### OG DE LOS SANTOS, THYR ####[facility] ([id number])[address] [place] [address] 23508Nbze nitrogen [Mass/Vol]21 mg/dLNormal5-27Berger HospitalComment on above:Performed By: #### OG DE LOS SANTOS, THYR ####[facility] ([id number])[address] [place] [address] 67029 Comprehensive metabolic panelon 10-87-9018Iiypxzl [Mass/Vol]3.4 g/dL3.2 - 5.3 g/dLFostoria City Hospital Health SystemALP [Catalytic activity/Vol]78 U/L39 - 130 U/L [facility] HospitalALT No additional P-5'-P [Catalytic activity/Vol]25 U/L0 - 40 U/[facility] Health SystemAnion gap [Moles/Vol]9 mmol/L5 - 15 mmol/L [facility] SystemAST [Catalytic activity/Vol]37 U/L0 - 41 U/[facility] SystemBilirubin [Mass/Vol]0.6 mg/dL0.3 - 1.2 mg/dLBrown Memorial Hospital System Calcium [Mass/Vol]9.3 mg/dL8.5 - 10.5 mg/dLBrown Memorial Hospital SystemChloride [Moles/Vol]99 mmol/L98 - 109 mmol/[facility] Health SystemCO2 [Moles/Vol]28 mmol/L22 - 32 mmol/[facility] SystemCreatinine [Mass/Vol]1 mg/dL0.70 - 1.20 mg/dLCleveland Clinic Marymount HospitalComment on above:METHOD TRACEABLE TO IDMS STANDARDeGFR (CKD-EPI)non-race nbikvlalc71- [facility] Health SystemComment on above: Reported eGFR is based on the CKD-EPI 2020 equation that does not use a race coefficient. Glucose [Mass/Vol]121 mg/vQElpq66 - 99 mg/dLCleveland Clinic [facility] Hospital Interpretation and review of laboratory resultsAbnormalC[facility] Potassium [Moles/Vol]4.7 mmol/L3.5 - 5.0 mmol/[facility] SystemProtein [Mass/Vol]7.4 g/dL6.0 - 8.0 g/dLAtrium Healthodium [Moles/Vol]136 mmol/L134 - 146 mmol/[facility] HospitalUrea nitrogen [Mass/Vol]21 mg/dL5 - 27 mg/dLTyler Memorial HospitalTHYROID PROFILEon 06-34-5776Mytk T4 [Mass/Vol]1.16 ng/dLNormal0.61-1.60[facility] Comment on above:Performed By: #### MAGALI CBCA, THYR ####[facility] ([id number])[address] [place] [address] 66241WNY1.57 uIU/mLNormal0.49-4.67Berger HospitalComment on above:Performed By: #### MAGALI CBCTrang, THYR ####[facility] ([id number])[address] [place] [address] 07779Txksmmb profile includes TSH FT4on 07-18-2024 Free T4 [Mass/Vol]1.16 ng/dL0.61 - 1.60 ng/dLCleveland Clinic Marymount HospitalTS Qn2.57 m[IU]/LPrNazareth HospitalCBC AND AUTO DIFFon 74-79-6091Pitadvlbxob (Bld) [#/Vol]1.6 10*3/uLHigh0.0-0.4Berger HospitalComment on above:Performed By: #### CBCA, CMP, THYR ####[facility] ([id number])[address] [place] [address] 33915 Eosinophils/100 WBC (Bld)7.0 %NormalBerger HospitalComment on above: Performed By: #### CBCTrang CMP, THYR ####[facility] ([id number])[address] [place] [address] 30609Admgscrltaq distribution width (RBC) [Ratio]15.9 %High11.5-15.0Berger HospitalComment on above: Performed By: #### CBCA, CMP, THYR ####[facility] ([id number])[address] [place] [address], [place] [address]Hgtvotwsao (Bld) [Volume fraction]39.0 %Ptcbya22-25LbzHemhdcMayhill HospitalComment on above:Performed By: #### CBCA, CMP, THYR ####[facility] ([id number])[address] [place] [address] 83759Djxgnismsw (Bld) [Mass/Vol]12.9 g/dLLow 13.0-17.0Berger HospitalComment on above:Performed By: #### CBCTrang, CMP, THYR ####[facility] ([id number])[address] [place] [address] 99222NMTAANPRKK, ATYPICAL2.0 %[facility] Comment on above:Performed By: #### CBCA, CMP, THYR ####[facility] ([id number])[address] [place] [address] 38486 Lymphocytes (Bld) [#/Vol]5.1 10*3/uLHigh1.0-3.5POhioHealth Hardin Memorial HospitalComment on above:Performed By: #### CBCA, CMP, THYR ####[facility] ([id number])[address] [place] [address] 21977Iupjzzfqaax/100 WBC (Bld)20.0 %NormalProMayhill HospitalComment on above:Performed By: #### CBCA, CMP, THYR ####[facility] ([id number])[address] [place] [address] 01697CCM (RBC) [Entitic mass]30.0 ghIgyosy07-77 Berger HospitalComment on above:Performed By: #### CBCA, CMP, THYR ####[facility] ([id number])[address] [place] [address] 75205IHOI (RBC) [Mass/Vol]33.1 g/fISmcwwa13-77JvvBniutwBerger HospitalComment on above:Performed By: #### CBCA, CMP, THYR ####[facility] ([id number])[address] [place] [address] 13878 MCV (RBC) [Entitic vol]91 uNBpytjp13-912PvdFkdrekBerger HospitalComment on above:Performed By: #### CBCA, CMP, THYR ####[facility] ([id number])[address] [place] [address] 17935Kcfmcsfam (Bld) [#/Vol]4.1 10*3/uLHigh0-0.9Berger HospitalComment on above:Performed By: #### CBCA, CMP, THYR ####[facility] ([id number])[address] [place] [address] 62216Enzbhdyfh/100 WBC (Bld)18.0 %Normal Berger HospitalComment on above:Performed By: #### CBCA, CMP, THYR ####[facility] ([id number])[address] [place] [address] 28441Ysgcfzembzq (Bld) [#/Vol]12.2 10*3/uLHigh1.5-6.6Berger HospitalComment on above:Performed By: #### CBCA, CMP, THYR ####[facility] ([id number])[address] [place] [address], [place] [address] NUCLEATED RBC1.0 /100 WBCNormal0.0-1.0Berger HospitalComment on above:Performed By: #### CBCA, CMP, THYR ####[facility] ([id number])[address] [place] [address] 72732Qkngdmyg mean volume (Bld) [Entitic vol]8.5 fLNormal7-12ProMedica Patton State HospitalComment on above:Performed By: #### CBCA, CMP, THYR ####[facility] ([id number])[address] [place] [address], [place] 30[address]Ldqheelhl (Bld) [#/Vol]495 10*3/gUNplo530-544FecZhszvgMayhill HospitalComment on above: Performed By: #### CBCA, CMP, THYR ####[facility] ([id number])[address] [place] [address], [place] 74[address]IKG COUNT4.30 X10E12/LNormal 4.10-5.70Berger HospitalComc.s. [facility] on above:Performed By: #### CBCA, CMP, THYR ####[facility] ([id number])[address] [place] [address], [place] [address]KOV morphology finding Nom (Bld)REVIEWEDNormalProMayhill HospitalComment on above:Performed By: #### CBCA, CMP, THYR ####[facility] ([id number])[address] [place] [address] 37392 SEG HWVULJJQTR47.0 %NormalProMayhill HospitalComc.s. mott children's hospital on above:Performed By: #### CBCA, CMP, THYR ####[facility] ([id number])[address] [place] [address], [place] [address]MPT (Bld) [#/Vol]23.0 10*3/uLHigh 4.0-11.0Berger HospitalComment on above:Performed By: #### CBCA, CMP, THYR ####[facility] ([id number])[address] [place] [address] 17878MZK auto differentialon 80-96-4236Aendczfljnq (Bld) [#/Vol]1.6 10*3/uLHighCleveland Clinic Marymount HospitalEosinophils/100 WBC (Bld)7 % [facility] HospitalErythrocyte distribution width (RBC) [Ratio]15.9 %High 11.5 - 15.0 %[facility] HospitalHematocrit (Bld) [Volume fraction]39 %39 - 49 %[facility] HospitalHemoglobin (Bld) [Mass/Vol]12.9 g/dLLow13.0 - 17.0 g/dLCleveland Clinic Marymount HospitalInterpretation and review of laboratory results AbnormalCleveland Clinic Marymount HospitalLymphocytes (Bld) [#/Vol]5.1 10*3/uLSentara CarePlex HospitalLymphocytes/100 WBC (Bld)20 %[facility] HospitalMCH (RBC) [Entitic mass]30 pg27 - 34 [facility]vue HospitalMCHC (RBC) [Mass/Vol]33.1 g/dL32 - 36 g/dLCleveland Clinic Marymount HospitalMCV (RBC) [Entitic vol]91 fL80 - 100 fL [facility] HospitalMonocytes (Bld) [#/Vol]4.1 10*3/uLKindred Hospital Seattle - North Gate SystemMonocytes/100 WBC (Bld)18 %[facility] HospitalNeutrophils (Bld) [#/Vol]12.2 10*3/uLSentara CarePlex HospitalNucleated RBC/100 WBC (Bld) [Ratio]1 %[facility] HospitalPlatelet mean volume (Bld) [Entitic vol]8.5 fL7 - 12 [facility] SystemPlatelets (Bld) [#/Vol]495 10*3/uLSentara CarePlex HospitalPolymorphonuclear cells/100 WBC (Bld)REVIEWEDProAdena Fayette Medical CenterRBC (Bld) [#/Vol]4.3 10*6/uLAtrium Healthegmented neutrophils/100 WBC (Bld)53 %[facility] SystemVariant lymphocytes/100 WBC (Bld)2 %[facility] SystemWBC corrected for nucl RBC Auto (Bld) [#/Vol]23 HighFroedtert West Bend Hospital SystemCOMPREHENSIVE METABOLIC PANEL on 99-37-2723Gfmqvfs [Mass/Vol]2.9 g/dLLow3.2-5.3POhioHealth Hardin Memorial Hospital Comment on above:Performed By: #### CBCA, CMP, THYR ####[facility] ([id number])[address] [place] [address], [place] [address]FZO [Catalytic activity/Vol]84 U/GImipsx50-418IhqJjcmyeBerger HospitalComment on above:Performed By: #### CBCA, CMP, THYR ####[facility] ([id number])[address] [place] [address], [place] [address]HBR [Catalytic activity/Vol]23 U/LNormal0-40Berger HospitalComment on above: Performed By: #### CBCA, CMP, THYR ####[facility] ([id number])[address] [place] [address] [place] [address]Okgaj gap [Moles/Vol]11 mmol/L Normal5-15Berger HospitalComment on above:Performed By: #### CBCA, CMP, THYR ####[facility] ([id number])[address] [place] [address] [place] [address]DYO [Catalytic activity/Vol]32 U/LNormal0-41Berger HospitalComment on above:Performed By: #### CBCA, CMP, THYR ####[facility] ([id number])[address] [place] [address] [place] [address] Bilirubin [Mass/Vol]0.7 mg/dLNormal0.3-1.2POhioHealth Hardin Memorial HospitalComment on above:Performed By: #### MAGALI [place], THYR ####[facility] ([id number])[address] [place] [address], [place] [address]Remtdau [Mass/Vol] 9.2 mg/dLNormal8.5-10.5POhioHealth Hardin Memorial HospitalComment on above:Performed By: #### MAGALI [place], THYR ####[facility] ([id number])[address] [place] [address], [place] [address]Sxuzoyke [Moles/Vol]97 mmol/WBqq81-555 Berger HospitalComment on above:Performed By: #### MAGALI [place], THYR ####[facility] ([id number])[address] [place] [address], [place] [address]WN0 [Moles/Vol]28 mmol/XCrfpez05-51KevXulfpcOhioHealth Hardin Memorial HospitalComment on above:Performed By: #### MAGALI [place], THYR ####[facility] ([id number])[address] [place] [address], [place] [address] Creatinine [Mass/Vol]0.81 mg/dLNormal0.70-1.20Berger HospitalComment on above:Result Comment: METHOD TRACEABLE TO IDMS STANDARDPerformed By: #### MAGALI [place], THYR ####[facility] ([id number])[address] [place] [address] [place] [address]oGGE (CKD-EPI) NON-RACE DEPENDENT>90Normal>59 Berger HospitalComment on above:Result Comment: Reported eGFR is based on theCKD-EPI 2020 equation that doesnot use a race coefficient.Performed By: #### MAGALI [place], THYR ####[facility] ([id number])[address] [place] [address], [place] [address]Sqjwpco [Mass/Vol]110 mg/vXUgtq02-73 Berger HospitalComment on above:Performed By: #### OG, CMP, THYR ####[facility] ([id number])[address] [place] [address] 08449Rmqauwovf [Moles/Vol]4.5 mmol/LNormal3.5-5.0Berger HospitalComment on above:Performed By: #### CBCTrang CMP, THYR ####[facility] ([id number])[address] [place] [address] 95156 Protein [Mass/Vol]7.6 g/dLNormal6.0-8.0Berger HospitalComment on above:Performed By: #### OG CMP, THYR ####[facility] ([id number])[address] [place] [address] 39891Loowzm [Moles/Vol] 136 mmol/SKpbgih273-238NwrVbxxix Fremont HospitalComment on above:Performed By: #### OG, CMP, THYR ####[facility] ([id number])[address] [place] [address] 18442Uanw nitrogen [Mass/Vol]16 mg/dLNormal5-27 Berger HospitalComc.s. [facility] on above:Performed By: #### OG, CMP, THYR ####[facility] ([id number])[address] [place] [address] 60502Ttwrcxftzmnnk metabolic panelon 62-85-3620Huaicpe [Mass/Vol]2.9 g/dLLow3.2 - 5.3 g/dLProNorth [facility] Medical Center Health SystemALP [Catalytic activity/Vol]84 U/L39 - 130 U/LProMedica Health SystemALT No additional P-5'-P [Catalytic activity/Vol]23 U/L0 - 40 U/LProMedica Health SystemAnion gap [Moles/Vol]11 mmol/L5 - 15 mmol/LProMedica Health SystemAST [Catalytic activity/Vol]32 U/L0 - 41 U/LProMedica Health SystemBilirubin [Mass/Vol]0.7 mg/dL0.3 - 1.2 mg/dLBrown Memorial Hospital SystemCalcium [Mass/Vol]9.2 mg/dL8.5 - 10.5 mg/dLBrown Memorial Hospital SystemChloride [Moles/Vol]97 mmol/LLow98 - 109 mmol/L [facility] HospitalCO2 [Moles/Vol]28 mmol/L22 - 32 mmol/[facility] SystemCreatinine [Mass/Vol]0.81 mg/dL0.70 - 1.20 mg/dLCleveland Clinic Marymount Hospital Comment on above:METHOD TRACEABLE TO IDKY STANDARDeGFR (CKD-EPI)non-race dependent- [facility] Health SystemComment on above: Reported eGFR is based on the CKD-EPI 2020 equation that does not use a race coefficient. Glucose [Mass/Vol]110 mg/lAJzeb20 - 99 mg/dLCleveland Clinic Mary[facility] Hospital Interpretation and review of laboratory resultsAbnormalC[facility] Clinic [facility] Potassium [Moles/Vol]4.5 mmol/L3.5 - 5.0 mmol/[facility] SystemProtein [Mass/Vol]7.6 g/dL6.0 - 8.0 g/dLAtrium Healthodium [Moles/Vol]136 mmol/L134 - 146 mmol/[facility] SystemUrea nitrogen [Mass/Vol]16 mg/dL5 - 27 mg/dLTyler Memorial HospitalTHYROID PROFILEon 44-80-1891Ybcm T4 [Mass/Vol]1.19 ng/dLNormal0.61-1.60[facility] Comment on above:Performed By: #### CBCA, CMP, THYR ####[facility] ([id number])[address] [place] [address] 89300IDE8.36 uIU/mLNormal0.49-4.67Berger HospitalComment on above:Performed By: #### CBCA, CMP, THYR ####[facility] ([id number])[address] [place] [address] 90738Mbuuene profile includes TSH FT4on 07-05-2024 Free T4 [Mass/Vol]1.19 ng/dL0.61 - 1.60 ng/dLCleveland Clinic Marymount HospitalTS Qn2.36 m[IU]/LProMedica Health TriHealthBONE MARROWon 06-10-2024 BONE MARROWSEE SEPARATE REPORTNormalMemorial Health SystemComment on above: Result Comment: REVIEWED BY Goran POWER M.D.Performed By: #### SUJIT 35156-9 ####[facility] ([id number])[address] [place] [address] 89952Hwxm cytometry specialist review Nasir (Unsp spec) [Interp]on 02-39-8704EHPM CYTOMETRY BMSEE SEPARATE REPORT, REVIEWED BY PATHOLOGISTNoalMemorial Health SystemComment on above:Performed By: #### SUJIT, 98868-5 ####[facility] ([id number])[address] [place] [address] 46490YB BIOPSY BONE SUPERFICIAL PERCon 05-24-3564MC BIOPSY BONE SUPERFICIAL PERCNormPeoples Hospitalurgical Pathologyon 55-95-5843Olubcizq PathologyNoWilson Street HospitalComment on above:Result Comment: [facility] [address] [place] [address] Surgical Pathology ConsultationPatient Name:YOBANY TORSTEN Kirkland:1955 (Age: 68)Gender:MTaken:06/10/2024Reported:06/16/2024Physician(s):Wallace Prado M.D. ([phone])Copy To:Ulices Caro M.D. Rec. #:[id number]: #[id number] Pathologic Diagnosis1). Bone marrow, aspirate, clot section [...] antigen acquisition are identified on maturing myeloid cells.[place] on the lymphoid population demonstrates a mixed population of phenotypically unremarkable T-cells, polyclonal B-cells, and natural killer cells, without a detectable monoclonal population. No significant plasma cell population is identified.Hemodilution artifact seen.Immunophenotyping antibodies tested: CD2, CD3, CD4, CD5, CD7, CD8, CD10, CD13, CD16, CD19, CD20, CD23, CD33, CD34, CD38, CD43, CD45, CD56, CD117,CD123, CD138, TRCB1, Krupp, and Lambda.Immunophenotyping Comment:Immunophenotyping has been used inthis diagnostic evaluation. This test was developed and its performance characteristics determined by the [facility] Department. It has not been [...] testing.Electronically Signed OutPeter Power MDInterpretation performed at [email or web address], [address] [place] [address], License number: [id number].Clinical HistoryBone lesion left ischium, hodgkin lymphoma.Gross DescriptionReceived [...] are submitted in cassette B. (2, ns, [id number],m8.1) DM.dm/06/13/2024RXDMicroscopic FindingsANATOMIC SITE: 1. Left iliac Crest [...] evealing.Specimen(s) Received Left iliac bone biopsyFee Codes(s):1; 31403, 05245, 26322, 32603, 20049(5)CBC AND AUTO DIFFon 39-71-6727Wihllotiqcv (Bld) [#/Vol]1.4 10*3/uLHigh0.0-0.4ProMayhill HospitalComment on above: Performed By: #### CMP, CBCA ####[facility] ([id number])[address] [place] [address] 89353#### 30213-5, 285-1 ####[facility] ([id number])[address] [place] [address], [address] [place] [address] 95863 Eosinophils/100 WBC (Bld)7.7 %NormalProMayhill HospitalComment on above: Performed By: #### CMP, CBCA ####[facility] ([id number])[address] [place] [address] 75119#### 96604-8, 2856-1 ####[facility] ([id number])[address], [address] [place] [address] 39497 Erythrocyte distribution width (RBC) [Ratio]16.3 %High11.5-15.0ProMayhill HospitalComment on above:Performed By: #### CMP, CBCA ####[facility] ([id number])[address] [place] [address] 74950#### 23371-1, 285-1 ####[facility] ([id number])[address], [address] [place] [address] 79484Sezmiqemsx (Bld) [Volume fraction]39.4 %Awrtuv74-52 [facility] Patton State HospitalComment on above:Performed By: #### CMP, CBCA ####[facility] ([id number])[address] [place] [address] 31519#### 08706-1, 285- ####[facility] ([id number])[address], [address] [place] [address] 40337Flqdqvbgcr (Bld) [Mass/Vol] 13.1 g/kEDyjqfa29.0-17.0ProMayhill HospitalComment on above:Performed By: #### CMP, CBCA ####[facility] ([id number])[address] [place] [address] 84574#### 06080-2, 2856-03 ####[facility] ([id number])[address], [address] [place] [address] 34803DQICLSFFXV, ATYPICAL 12.5 %NormalProMayhill HospitalComment on above:Performed By: #### CMP, CBCA ####[facility] ([id number])[address] [place] [address] 26946#### 58617-8, 285-1 ####[facility] ([id number])[address], [address] [place] [address] 99587Rzianoinqvb (Bld) [#/Vol] 5.8 10*3/uLHigh1.0-3.5ProMedica Patton State HospitalComment on above:Performed By: #### CMP, CBCA ####[facility] ([id number])[address] [place] [address] 95350#### 04780-7, 28509-27 ####[facility] ([id number])[address], [address] [place] [address] 25458Ncnqeynlfud/100 WBC (Bld) 19.2 %NormalProMayhill HospitalComment on above:Performed By: #### CMP, CBCA ####[facility] ([id number])[address] [place] [address] 10852#### 02212-5, 28509-27 ####[facility] ([id number])[address], [address] [place] [address] 47262ABB (RBC) [Entitic mass] 30.8 biDomiut74-46ZdmNqhfwoBerger HospitalComment on above:Performed By: #### CMP, CBCA ####[facility] ([id number])[address] [place] [address] 29483#### 69158-1, 2856-03 ####[facility] ([id number])[address], [address] [place] [address] 18344RWQV (RBC) [Mass/Vol]33.1 g/jBAgrmlj60-83IyrOyukmpMayhill HospitalComment on above:Performed By: #### CMP, CBCA ####[facility] ([id number])[address] [place] [address] 40468#### 68600-0, 2857-1 ####[facility] ([id number])[address], [address] [place] [address] 32930YGZ (RBC) [Entitic vol]93 rZQmifgi51-854ZcbWqxcyr [facility]remont HospitalComment on above:Performed By: #### CMP, CBCA ####[facility] ([id number])[address] [place] [address] 69064#### 80013-7, 2857-1 ####[facility] ([id number])[address] [facility], [address] [place] [address] 41931Fbjhmxvop (Bld) [#/Vol]3.5 10*3/uLHigh0-0.9ProMayhill HospitalComment on above:Performed By: #### CMP, CBCA ####[facility] ([id number])[address] [place] [address] 04583#### 71746-2, 285-1 ####[facility] ([id number])[address] [facility] [address] [place] [address] 10817Aohzkdkvl/100 WBC (Bld)19.2 %NormalProMayhill HospitalComment on above:Performed By: #### CMP, CBCA ####[facility] ([id number])[address] [place] [address] 98902#### 18155-5, 2857-1 ####[facility] ([id number])[address] [facility], [address] [place] [address] 17347Jafgwkstsxu (Bld) [#/Vol] 7.6 10*3/uLHigh1.5-6.6ProMayhill HospitalComment on above:Performed By: #### CMP, CBCA ####[facility] ([id number])[address] [place] [address] 75264#### 72427-6, 285-1 ####[facility] ([id number])[address] [facility], [address] [place] [address] 17147Sxxgknve mean volume (Bld) [Entitic vol]8.7 fLNormal7-12ProMedica Patton State HospitalComment on above: Performed By: #### CMP, CBCA ####[facility] ([id number])[address] [place] [address] 11238#### 91230-3, 2856-1 ####[facility] ([id number])[address] [place] [address], [address] [place] [address] 15764Uownxoxzv (Bld) [#/Vol]409 10*3/vDRpiukk036-890MdsHuyozz Fremont HospitalComment on above: Performed By: #### CMP, CBCA ####[facility] ([id number])[address] [place] [address] 49419#### 72946-4, 2856-03 ####[facility] ([id number])[address] [place] [address], [address] [place] [address] 33053ERL COUNT4.23 X10E12/LNormal4.10-5.70ProMayhill HospitalComment on above: Performed By: #### CMP, CBCA ####[facility] ([id number])[address] [place] [address] 25109#### 34719-0, 2856-03 ####[facility] ([id number])[address] [place] [address], [address] [place] [address] 45511BJT PNGQUEAEVL82.4 %NormalProMayhill HospitalComment on above:Performed By: #### CMP, CBCA ####[facility] ([id number])[address] [place] [address] 27180#### 20649-8, 285-1 ####[facility] ([id number])[address], [address] [place] [address] 55329HSU (Bld) [#/Vol]18.3 10*3/uLHigh4.0-11.0ProMayhill HospitalComment on above:Performed By: #### CMP, CBCA ####[facility] ([id number])[address] [place] [address] 89984#### 09193-0, 2857-1 ####[facility] ([id number])0 [facility], [address] [place] [address] 52585BELRFVANKJQRY METABOLIC PANELon 63-20-4345Klsinct [Mass/Vol]3.4 g/dLNormal3.2-5.3[facility] State HospitalComment on above:Performed By: #### CMP, CBCA ####[facility] ([id number])[address] [place] [address] 15146#### 92974-7, 2857-1 ####[facility] ([id number])0 [facility], [address] [place] [address] 42592BKI [Catalytic activity/Vol]77 U/IUgrnhk69-191NwiWwokcgMayhill HospitalComment on above:Performed By: #### CMP, CBCA ####[facility] ([id number])[address] [place] [address] 38831#### 70990-9, 2857-1 ####[facility] ([id number])[address], [address] [place] [address] 66270EZE [Catalytic activity/Vol]20 U/LNormal0-40 Pro[facility]icAlameda HospitalComment on above:Performed By: #### CMP, CBCA ####[facility] ([id number])[address] [place] [address]45#### 66526-5, 2857-1 ####[facility] ([id number])[address] [facility], [address] [place] [address] 15079Yufsb gap [Moles/Vol]10 mmol/LNormal5-15ProMayhill HospitalComment on above:Performed By: #### CMP, CBCA ####[facility] ([id number])48 [place] [address] 75596#### 22297-8, 285-1 ####[facility] ([id number])[facility], [address] [place] [address] 12261VYH [Catalytic activity/Vol]31 U/LNormal0-41ProMayhill HospitalComment on above: Performed By: #### CMP, CBCA ####[facility] ([id number])[address] [place] [address] 87266#### 27464-4, 285-1 ####[facility] ([id number])0 [facility], [address] [place] [address] 84243Xzfrxumha [Mass/Vol]0.5 mg/dLNormal0.3-1.2ProMedArroyo Grande Community HospitalComment on above: Performed By: #### CMP, CBCA ####[facility] ([id number])[address] [place] [address] 01084#### 17165-4, 28509-27 ####[facility] ([id number])[address]130 [facility], [address] [place] [address] 51800 Calcium [Mass/Vol]9.5 mg/dLNormal8.5-10.5ProMedArroyo Grande Community HospitalComment on above:Performed By: #### CMP, CBCA ####[facility] ([id number])[address] [place] [address] 15319#### 11569-0, 2857-1 ####[facility] ([id number])2130 [facility], [address] [place] [address] 69478 Chloride [Moles/Vol]99 mmol/KTbzufs53-006NkoIddvyyMayhill HospitalComment on above:Performed By: #### MAGALI CBCA ####[facility] ([id number])[address] [place] [address] 80386#### 36735-3, 2857-1 ####[facility] ([id number])0 [facility], [address] [place] [address] 87371YG5 [Moles/Vol]28 mmol/JIexhzx50-96IdlUzxjzb [facility]remont HospitalComment on above: Performed By: #### BRIDGET DE [place] ####[facility] ([id number])[address] [place] [address] 56538#### 97754-1, 2857-1 ####[facility] ([id number])2130 [facility], [address] [place] [address] 88105 Creatinine [Mass/Vol]0.87 mg/dLNormal0.70-1.20ProMayhill HospitalComment on above:Result Comment: METHOD TRACEABLE TO IDKY STANDARDPerformed By: #### BRIDGET DE [place] ####[facility] ([id number])[address] [place] [address] 67968#### 45846-6, 2857-1 ####[facility] ([id number])[address] 94777gICT (CKD-EPI) NON-RACE DEPENDENT>90Normal>59ProMayhill HospitalComment on above:Result Comment: Reported eGFR is based on theCKD-EPI 2020 equation that doesnot use a race coefficient.Performed By: #### MAGALI CBCA ####[facility] ([id number])[address] [place] [address] 26966#### 91735-8, 2857-1 ####[facility] ([id number])0 [facility], [address] [place] [address] 94650Yharhvf [Mass/Vol]102 mg/dEPsyi75-95TbsXremogMayhill HospitalComment on above:Performed By: #### CMP, CBCA ####[facility] ([id number])[address] [place] [address] 79353#### 93529-5, 2857-1 ####[facility] ([id number])[address] [place] [address], [address] [place] [address] 46191Gpydirsgx [Moles/Vol]4.5 mmol/LNormal3.5-5.0ProMayhill HospitalComment on above:Performed By: #### MAGALI, CBCA ####[facility] ([id number])[address] [place] [address] 62859#### 27534-1, 2857-1 ####[facility] ([id number])0 [facility], [address] [place] [address] 45398Pyaunvq [Mass/Vol]7.9 g/dLNormal6.0-8.0 [facility] State HospitalComment on above:Performed By: #### CMP, CBCA ####[facility] ([id number])[address] [place] [address] 63487#### 09720-4, 2857-1 ####[facility] ([id number])0 [facility], [address] [place] [address] 75957Plaqmb [Moles/Vol]137 mmol/ZNamclz323-679CmhHqfrvm Fremont HospitalComment on above:Performed By: #### CMP, CBCA ####[facility] ([id number])[address] [place] [address] 47649#### 13510-2, 2857-1 ####[facility] ([id number])[address], [address] [address]Hsbb nitrogen [Mass/Vol]17 mg/dLNormal5-27ProMayhill HospitalComment on above:Performed By: #### MAGALI CBCA ####[facility] ([id number])[address] [place] [address] 37815#### 23433-9, 2857-1 ####[facility] ([id number])[address], [address] [address]FYG Photometric method (Bld) [Velocity]on 86-79-8853ZRC, ERYTHROCYTE SEDIMENTATION RATE92 mm/hHigh0-20 [facility] State HospitalComment on above:Performed By: #### MAGALI CBCA ####[facility] ([id number])[address] [place] [address] 37983#### 27923-1, 2857-1 ####[facility] ([id number])[address] [address]Nxicpssx specific Ag [Mass/Vol]on 74-75-4035QJG SCREEN0.74 ng/mLNormal0.00-4.00ProMayhill HospitalComment on above:Result Comment: The method used for this test is [employer] DXI chemiluminescent immunoassay.Values obtained by different assay methodscannot be used interchangeably.Performed By: #### MAGALI, CBCA ####[facility] ([id number])[address] [place] [address] 55884#### 56658-3, 2857-1 ####[facility] ([id number])[address], [address] [place] [address] SKULL TO THIGHon 82-46-7965GLL CT SKULL TO [facility]Office Visiton 95-53-4842Lvcfdr-up [id number] Torsten Haywood 1955 M Date Provider Department Center 05/25/2024 ROSA FRANCISCO [facility] Family History Problem Relation Age of Onset Coronary artery disease Father Coronary artery disease Brother Family Status - Relation Status Age at Father Brother Level of Service:15829 [place] OFFICE/OUTPATIENT ESTABLISHED MOD [facility] 30 [facility] HospitalOperative Reporton 71-05-0968Ffsukaldr Report Operative Report Patient: TORSTEN HAYWOOD Age: 68 years Sex: Male : 1955 Associated Diagnoses: None Author: Quin Mas MD Postoperative Information Procedure: Left nasal endoscopy and cautery Preoperative Diagnosis: Acute anterior epistaxis (HIG69-TG R04.0, Working, Medical). Postoperative Diagnosis: Acute anterior epistaxis (KKT47-WQ R04.0, Post-Op Diagnosis, Medical). Performed by: Quin Mas MD. Findings: Brisk venous bleeding left anterior superiormost septum. Estimated Blood Loss: 100 ml. [facility] Medical CenterComment on above:Result Comment: Electronically Signed [...] Quin Mas Jr., M.D. ca Dictated: 04/22/2024 [id number] Transcribed: 04/24/2024 cc:Antoine Hobbs M.D.[facility] MemorialComment on above:Result Comment: Electronically Signed By: Chace ESCOBEDO, Quin Lira\.br\Date and Time Signed: 05/05/24 08:21 EOF25so 78-86-880579Kkunlqe made aware.[facility]36on 68-72-891850Mneftsh's sister in law called to make you aware he had another episode of epistaxis that required a trip [facility] ED [facility]. Dr. Mas (ENT) did do cauterization and had him hold the Eliquis for a day or so. Avni wanted to know if he should resume Eliquis 2.5mg (he has been taking 5mg bid). I told her yes until I hear from you. I offered him an apt with you tomorrow but she wanted to wait until his already scheduled apt on 05/25/2024.[facility] CenterED Note-Physicianon 99-56-6148BV Note-PhysicianED Note-Physician Basic Information Time Seen: Shaneka [...] Patient seen and evaluated by the physician loan officer assistant. Attending physician was present in the emergency department and supervised care. This visit was performed by both the physician and an APC. I performed all aspects of the MDM as documented. This report was transcribed using voice recognition software. Every effort was made to ensure accuracy, however, inadvertently computerized cable placer mistakes may be present. I performed a [...] of CABG Hyponatremia L (more content not included)...[facility] MemorialComment on above:Result Comment: Electronically Signed By: Citlaly GLEASON, Shaneka Hong\.br\Date and Time Signed: 04/23/2500:34 EST\.br\Electronically Co-Signed By: Freedom Maciel DO\.br\Date and Time Co-Signed: 04/25/24 07:06 ESTMain OR Intraoperative Recordon 51-87-7792Dbcb OR Intraoperative RecordMain OR Intraoperative Record IntraOp Document Type FT Summary Primary Physician: Quin Mas MD Finalized Date/Time: 04/25/24 10:12:30 Pt. Name: TORSTEN HAYWOOD/Sex: 1955 Male Med Rec #: [id number] Physician: Financial #: [id number] Pt. Type: E Room/Bed: [facility] Admit/Disch: 04/22/24 12:47:39 - 04/22/24 [...] Richelle Ho Role Performed Surgeon - Primary Lighting Designer - Primary Scrub - Primary Time In 04/22/24 16:48:00 04/22/24 16:45:00 04/22/24 16:45:00 Time Out 04/22/24 17:21:00 04/22/24 17:21:00 04/22/24 17:21:00 Procedure NASAL CAUTERIZATION NASAL CAUTERIZATION NASAL CAUTERIZATION Comments Last Modified By: Juan YUSUF, Norman Martinez RN, Norman Agudelo RN 04/22/24 17:59:38 04/22/24 17:59:38 04/22/24 17:59:38 Entry 4 Case Attendee Freedom Bruno Role Performed Anesthesiologist Lead Mobile Developer Time In 04/22/24 16:45:00 Time Out 04/22/24 17:21:00 Procedure NASAL CAUTERIZATION Comments , anesthesia brush fabrication supervisor Last Modified By: Norman Martinez RN [...] and tissue Entry 1 Skin Integrity Warm, [place] Skin Abnormality Yes Abnormality Location Left nasal [...] Leg Position Extended Side (more content not included)...[facility] MemorialInpatient Patient Summaryon 26-90-3489Radjjhgri Patient SummaryInpatient Patient Summary [place] [address] [facility] Clinical Discharge Instructions PERSON INFORMATION Name: TORSTEN HAYWOOD [facility]#:[id number] PHYSICIANS Admitting Physician: Attending Physician: Freedom Maciel DO PCP: Antoine Hobbs MD Discharge Diagnosis: Recurrent epistaxis Comment: PATIENT EDUCATION INFORMATION Instructions: Post Op Patient Instructions - FT (Custom) (CUSTOM); Nosebleed, Adult, Hdli-xs-Jfya Medication Leaflets: Follow up: With: Address: When: Quin Mas [address] [place] [address] [employer] (1) In 5 days 04/27/2024 Comments: Call [phone] on Thursday for Appt MEDICATION LIST Medications [...] a day. as needed for milder nausea. Comment:[facility] MemorialOutpatient Surgery Discharge Instructionon 22-83-9131Ptcvmjyolt Surgery Discharge InstructionOutpatient Surgery Discharge Instruction [place] [id number] Patient Discharge Instructions PERSON INFORMATION Name: TORSTEN [...] Follow up: With: Address: When: Quin Normfreedom [address] [place] [address]05 Business (1) In 5 days 04/27/2024 Comments: Call [phone] on Thursday for Appt Pharmacy Information: You may receive a survey from [employer] asking you to rate your care experience. Your feedback is important and will help us understand what we do well and how we can improve the quality of care we provide to you, your loved ones and our community. It???s an honor to serve you. Thank you for choosing [facility] HERE ARE THE MEDICATION CHANGES THAT [...] your nosebleed was caused by dryness, use gnjd-tgv-kilejxz saline nasal spray or gel and a humidifier as told by your doctor. This will keep the inside of your nose moist and allow it to heal.If you need to use nasal spray or gel: ? Choose one that is water-s (more content not included)...NormalOhio State Health System w/ Auto Diffon 72-55-2292Lnmmhldtk (Bld) [#/Vol]0.2 E9/LNormal 0.0-0.2FAshtabula General HospitalComment on above:Performed By: #### [id number] ####[address] [address] Eosinophils (Bld) [#/Vol]1.3 E9/LHigh0.0-0.5FAshtabula General HospitalComment on above:Performed By: #### [id number] ####[address] [address]Iplnjrhedot/100 WBC (Bld)7.0 %Normal 0.0-8.0[facility] HospitalComment on above:Performed By: #### [id number] ####[address] [address] Erythrocyte distribution width (RBC) [Ratio]16.1 %High10.9-14.2FAshtabula General HospitalComment on above:Performed By: #### [id number] ####[address], [place] [address]Hnxcmfptlo (Bld) [Volume fraction]39.8 %Jfriyp37.7-49.0[facility] HospitalComment on above:Performed By: #### [id number] ####[address] [address]Dfjftautdp (Bld) [Mass/Vol]13.2 g/dLLow13.5-17.5 [facility] HospitalComment on above:Performed By: #### [id number] ####[address] [address] Lymphocytes (Bld) [#/Vol]7.8 E9/LHigh1.0-4.0[facility] HospitalComment on above:Performed By: #### [id number] ####[address] [address]Kerjrriaadw/100 WBC (Bld)30.0 %Normal 14.0-50.0[facility] HospitalComment on above:Performed By: #### [id number] ####[address] [address]VSU (RBC) [Entitic mass]33.0 dbFndujg34.0-34.0[facility] HospitalComment on above:Performed By: #### [id number] ####[address] [address]LXWH (RBC) [Mass/Vol]33.1 g/kTFbgvaf50.4-36.0[facility] HospitalComment on above:Performed By: #### [id number] ####[address] [address]OFV (RBC) [Entitic vol]99.8 xDVgiuhi16.0-100.0[facility] HospitalComment on above: Performed By: #### [id number] ####[address] [address]Aprhacuhr (Bld) [#/Vol]2.3 E9/LHigh0.2-1.0[facility] HospitalComment on above:Performed By: #### [id number] ####[address] [address]Qdscjjtxakj (Bld) [#/Vol]7.4 E9/LInvalid Interpretation CodeMarietta Memorial HospitalComment on above:Performed By: #### [id number] ####[address] [address]Gwgiuswx mean volume (Bld) [Entitic vol]8.5 fL Normal6.4-10.8[facility] HospitalComment on above:Performed By: #### [id number] ####[address] [address]Nluhinfbk (Bld) [#/Vol]366.0 E9/IIaffgo962.0-500.0M[facility] Memorial HospitalComment on above:Performed By: #### [id number] ####[address] [address]ITF (Bld) [#/Vol]4.0 E12/LLow 4.3-5.9[facility] Memorial HospitalComment on above:Performed By: #### [id number] ####[address] [address] Segmented neutrophils/100 WBC (Bld)39.0 %Ifqfyq05.0-75.0[facility] HospitalComment on above:Performed By: #### [id number] ####[address] [address]Pkuuucn lymphocytes/100 WBC (Bld)11.0 %High0.0-0.0[facility] Memorial HospitalComment on above:Performed By: #### [id number] ####[address] [address]LBH corrected for nucl RBC Auto (Bld) [#/Vol]19.0 E9/LHigh4.0-11.0[facility] HospitalComment on above:Performed By: #### [id number] ####[facility] [address] [place] [address]Elracnvsx Instructionson 46-24-5835Qdvihamcj InstructionsDischarge Instructions TORSTEN HAYWOOD [place] :1955 Visit Date:04/22/2024 Inpatient Discharge Instructions Reason for Your Visit bloody nose since 1100. on bloodthinners. clamp on. took it off for 30 seconds before blood startedtrickling out. Your Diagnosis Acute anterior epistaxis, Acute anterior epistaxis Epistaxis This Is Your Medications List [facility] Prescription (Handicap Placpeggy, 5 years.) acetaminophen (acetaminophen [...] In 5 days 04/27/2024 EST Comments: Call [phone] on Thursday for Appt Where: [address] [place] [address]- [employer] (1) Medications What How Much When Why [...] disease) BMI 26.0-26.9,adult Overweight Nonsmoker Uses walker CodeSealermanny Guevara, 5 years. Unchanged ondansetron (Zofran 4 [...] receiving treatment for. Car (more content not included)...[facility] MemorialComment on above:Result Comment: Electronically Signed By: Luis YUSUF, Susan Hathaway\.odilia\Date and Time Signed: 04/22/24 17:48 ESTInterdisciplinary Note - Nursingon 04-22-2024 Interdisciplinary Note - NursingInterdisciplinary Note - Nursing pt pacemaker, [employer]tr[employer] interpreted per device, fax sent with interpretation sent to ASu fax. made aware received fax.[facility] MemorialMain OR PACU I Recordon [id number] OR PACU I RecordMain OR PACU I Record PACU Phase I Document Type FT Summary Primary Physician: Quin Mas MD Finalized Date/Time: 04/22/24 18:14:57 Pt. Name: YOBANYTORSTEN D.O.B./Sex: 1955 Male Med Rec #: [id number] Physician: Financial #: [id number] Pt. Type: E Room/Bed: 03/30 Admit/Disch: 04/22/24 [...] Signatures Signed By: Caterina Kurtz RN 04/22/24 18:14NormalMarietta Memorial HospitalMain OR PACU II Recordon 27-93-1834Ullm OR PACU II RecordMain OR PACU II Record PACU Phase II Document Type FT Summary Primary Physician: Quin Mas MD Finalized Date/Time: 04/22/24 18:41:38 Pt. Name: TORSTEN HAYWOOD /Sex: 1955 Male Med Rec #: [id number] Physician: Financial #: [id number] Pt. Type: E Room/Bed: Admit/Disch: 04/22/24 12:47:39 [...] Signatures Signed By: Susan Smith RN 04/22/24 18:41NoLakeHealth TriPoint Medical CenterMain OR Preoperative Recordon 52-63-1072Yhrf OR Preoperative RecordMain OR Preoperative Record PreOp Document Type FT Summary Primary Physician: Quin Mas MD Finalized Date/Time: 04/22/24 17:50:07 Pt. Name: TORSTEN HAYWOOD/Sex: 1955 Male Med Rec #: [id number] Physician: Financial #: [id number] Pt. Type: E Room/Bed: [place] [address] Admit/Disch: 04/22/24 12:47:39 - Institution: Case Times [...] 17:50[facility] AND AUTO DIFFon 98-08-8351Qdsvylsshad (Bld) [#/Vol]0.7 10*3/uLHigh0.0-0.4ProMayhill HospitalComment on above:Performed By: #### CBCA ####[facility] ([id number])[address] [place] [address] 40194#### 10273-2, CMP, 3084-1 ####[facility] ([id number])[address], [address] [place] [address] 08044Oxlsprtxuwp/100 WBC (Bld)5.8 %NormalProMayhill HospitalComment on above:Performed By: #### CBCA ####[facility] ([id number])[address] [place] [address] 71650#### 29593-5, CMP, 308-1 ####[facility] ([id number])[address], [address] [place] [address] 60746Dcqzwuyehlr distribution width (RBC) [Ratio]17.5 % High11.5-15.0ProMayhill HospitalComment on above:Performed By: #### CBCA ####[facility] ([id number])[address] [place] [address] 03272#### 02680-4, CMP, 308- ####[facility] ([id number])[address], [address] [place] [address] 83951KXLEGZIY1+AbnormalNONE [facility] State HospitalComment on above:Performed By: #### CBCA ####[facility] ([id number])[address] [place] [address] 89479#### 15184-1, CMP, 308-1 ####[facility] ([id number])[address], [address] [place] [address] 02404Ztzcnroazp (Bld) [Volume fraction]34.7 %Low 39-49ProMayhill HospitalComment on above:Performed By: #### CBCA ####[facility] ([id number])[address] [place] [address] 37861#### 56545-1, CMP, 3084-1 ####[facility] ([id number])[address], [address] [place] [address] 69703Ymndhcfsyu (Bld) [Mass/Vol] 11.7 g/dLLow13.0-17.0ProMayhill HospitalComment on above:Performed By: #### CBCA ####[facility] ([id number])[address] [place] [address] 89486#### 47662-8, CMP, 308-1 ####[facility] ([id number])2129 [facility], [address] [place] [address] 08654VKEMJEAJUO, ATYPICAL 14.6 %NormalProMayhill HospitalComment on above:Performed By: #### CBCA ####[facility] ([id number])[address] [place] [address] 58504#### 77932-1, CMP, 3084-1 ####[facility] ([id number])[address], [address] [place] [address] 380[address]Nucbruyrslm (Bld) [#/Vol] 5.5 10*3/uLHigh1.0-3.5Pro[facility] State HospitalComment on above:Performed By: #### CBCA ####[facility] ([id number])[address] [place] [address] 23331#### 46293-3, CMP, 3084-1 ####[facility] ([id number])[address] [address]Ovwjjolqmkd/100 WBC (Bld)31.1 %NormalProMayhill HospitalComment on above:Performed By: #### CBCA ####[facility] ([id number])[address] [place] [address] 29488#### 21347-7, CMP, 308-1 ####[facility] ([id number])[address] [address]BSZ (RBC) [Entitic mass] 35.0 qcRbdi00-39DpxKsoaujMayhill HospitalComment on above:Performed By: #### CBCA ####[facility] ([id number])[address] [place] [address] 37456#### 28433-3, CMP, 308- ####[facility] ([id number])[address] [address]XDVY (RBC) [Mass/Vol]33.8 g/uUWtucpz66-65UzrUsdsjnMayhill HospitalComment on above:Performed By: #### CBCA ####[facility] ([id number])[address] [place] [address] 49796#### 75136-4, CMP, 308- ####[facility] ([id number])[address] [address]PIK (RBC) [Entitic vol]104 wROkae66-577QurIadcnbMayhill HospitalComment on above:Performed By: #### CBCA ####[facility] ([id number])[address] [place] [address] 93376#### 53785-8, CMP, 308- ####[facility] ([id number])[address] [address]Zduvtgste (Bld) [#/Vol]1.4 10*3/uLHigh0-0.9ProMayhill HospitalComment on above:Performed By: #### CBCA ####[facility] ([id number])[address] [place] [address] 56556#### 33757-6, CMP, 3084-1 ####[facility] ([id number])[address], [address], [place] [address]Ahcqrxwvw/100 WBC (Bld) 11.7 %NormalProMayhill HospitalComment on above:Performed By: #### CBCA ####[facility] ([id number])[address] [place] [address] 45209#### 11576-8, CMP, 308-1 ####[facility] ([id number])[address], [address] [place] [address] 87853Zaybjlfbxqr (Bld) [#/Vol] 4.4 10*3/uLNormal1.5-6.6ProMayhill HospitalComment on above:Performed By: #### CBCA ####[facility] ([id number])[address] [place] [address] 79640#### 13173-3, CMP, 308-1 ####[facility] ([id number])[address], [address] [place] [address] 55[address]VHYJRUALS1+ AbnormalNONEProMedica Patton State HospitalComment on above:Performed By: #### CBCA ####[facility] ([id number])[address] [place] [address] 57856#### 52554-4, CMP, 3084-1 ####[facility] ([id number])[address], [address] [place] [address] 12761Ssbkbqxz mean volume (Bld) [Entitic vol]8.3 fLNormal7-12[facility] State HospitalComment on above: Performed By: #### CBCA ####[facility] ([id number])[address] [place] [address] 13724#### 77183-7, CMP, 3084-1 ####[facility] ([id number])[address], [address] [place] [address] Platelets (Bld) [#/Vol]420 10*3/kSYsphmb257-714BocQbeogy [facility]remont HospitalComment on above:Performed By: #### CBCA ####[facility] ([id number])[address] [place] [address] 82217#### 39787-4, CMP, 3084-1 ####[facility] ([id number])[address], [address] [place] [address] 487[address]WITKSPLSRYLLB5+AbnormalNONEPGlenwood Regional Medical Centerica Patton State HospitalComment on above: Performed By: #### CBCA ####[facility] ([id number])[address] [place] [address] 38516#### 06573-1, CMP, 3084-1 ####[facility] ([id number])[address], [address] [place] [address] 605[address]TKV COUNT3.35 X10E12/LLow4.10-5.70ProMayhill HospitalComment on above: Performed By: #### CBCA ####[facility] ([id number])[address] [place] [address]#### 87632-6, CMP, 3084-1 ####[facility] ([id number])[address], [address], [place] [address]JCO FYXDZXTSHK04.8 %NormalProMayhill HospitalComment on above:Performed By: #### CBCA ####[facility] ([id number])[address] [place] [address]98#### 03703-1, CMP, 3084-1 ####[facility] ([id number])[address], [address], [place] [address]IUN (Bld) [#/Vol]12.0 10*3/uLHigh4.0-11.0ProMayhill HospitalComment on above:Performed By: #### CBCA ####[facility] ([id number])[address] [place] [address]#### 40303-2, CMP, 3084-1 ####[facility] ([id number])[address], [address] [place] [address] 47785QOYKXEORJZDXH METABOLIC PANELon 88-77-3486Xblkxnf [Mass/Vol]3.8 g/dLNormal3.2-5.3ProMedica [facility] State HospitalComment on above:Performed By: #### CBCA ####[facility] ([id number])[address] [place] [address]#### 05155-3, CMP, [facility]4-1 ####[facility] ([id number])[address], [address] [place] [address] 78437QPV [Catalytic activity/Vol]69 U/XSppndh88-077VkuKgatvpMayhill HospitalComment on above:Performed By: #### CBCA ####[facility] ([id number])[address] [place] [address] 28111#### 70201-4, CMP, 3084-1 ####[facility] ([id number])[address], [address] [place], [place] [address]QEA [Catalytic activity/Vol]16 U/LNormal0-40 [facility] HospitalComment on above:Performed By: #### CBCA ####[facility] ([id number])[address] [place] [address] 85424#### 27380-1, CMP, 308- ####[facility] ([id number])[address], [address] [place], [place] [address]Awwbf gap [Moles/Vol]11 mmol/LNormal5-15 [facility] HospitalComment on above:Performed By: #### CBCA ####[facility] ([id number])[address] [place] [address] 81176#### 45403-4, CMP, 308- ####[facility] ([id number])[address], [address], [place] [address]RIM [Catalytic activity/Vol]28 U/LNormal 0-41[facility] State HospitalComment on above:Performed By: #### CBCA ####[facility] ([id number])[address] [place] [address] 28951#### 64529-0, CMP, 308- ####[facility] ([id number])[address], [address] [place], [place] [address]Ixotfdjvd [Mass/Vol]0.4 mg/dLNormal0.3-1.2POhioHealth Hardin Memorial HospitalComment on above:Performed By: #### CBCA ####[facility] ([id number])[address] [place] [address] 13413#### 04354-6, CMP, 308- ####[facility] ([id number])[address], [address], [place] [address]Cvikxtw [Mass/Vol]9.2 mg/dLNormal8.5-10.5[facility]deen HospitalComment on above:Performed By: #### CBCA ####[facility] ([id number])[address] [place] [address] 88747#### 73959-8, CMP, 3084-1 ####[facility] ([id number])[address], [address], [place] [address]Icbclfks [Moles/Vol]104 mmol/EHfavqt12-721ZfkPscxabMayhill HospitalComment on above:Performed By: #### CBCA ####[facility] ([id number])[address] [place] [address] 99380#### 37614-5, CMP, 3084-1 ####[facility] ([id number])[address], [address] [place] [address] 31495DH7 [Moles/Vol]26 mmol/L Odxkhn18-21DwoIdfdes Patton State HospitalComment on above:Performed By: #### CBCA ####[facility] ([id number])[address] [place] [address] 03287#### 50017-8, CMP, 3084-1 ####[facility] ([id number])[address], [address] [place] [address] 45893Anummvzeoh [Mass/Vol]0.75 mg/dLNormal0.60-1.30ProMayhill HospitalComment on above:Result Comment: METHOD TRACEABLE TO IDMS STANDARDPerformed By: #### CBCA ####[facility] ([id number])[address] [place] [address] 32396#### 02950-5, CMP, 3084-1 ####[facility] ([id number])[address], [address], [place] [address]gADA (CKD-EPI) NON-RACE DEPENDENT>90Normal>59 [facility]deen HospitalComment on above:Result Comment: Reported eGFR is based on theCKD-EPI 2020 equation that doesnot use a race coefficient.Performed By: #### CBCA ####[facility] ([id number])[address] [place] [address] 25555#### 08625-5, [facility], 3084-1 ####[facility] ([id number])[address], [address] [place] [address] 05882Kvcjjta [Mass/Vol]109 mg/nXZryr63-83OogRatdlsMayhill HospitalComment on above:Performed By: #### CBCA ####[facility] ([id number])[address] [place] [address] 94644#### 23083-3, [facility], 3084- ####[facility] ([id number])[address], [address] [place] [address] 91716Lsywgopva [Moles/Vol]4.0 mmol/LNormal3.5-5.0ProMayhill HospitalComment on above: Performed By: #### CBCA ####[facility] ([id number])[address] [place] [address] 72476#### 25507-9, [facility], 308-1 ####[facility] ([id number])[address], [address] [place] [address] 33143 Protein [Mass/Vol]6.7 g/dLNormal6.0-8.0ProMayhill HospitalComment on above:Performed By: #### CBCA ####[facility] ([id number])[address] [place] [address] 21710#### 45427-3, CMP, 3084-1 ####[facility] ([id number])[address], [address], [place] [address]Naqgba [Moles/Vol]141 mmol/HLaybwd329-089TxhBkyour Fremont HospitalComment on above:Performed By: #### CBCA ####[facility] ([id number])[address] [place] [address] 65751#### 31097-8, CMP, 3084-1 ####[facility] ([id number])[address], [address] [place] [address] 39723Xsyc nitrogen [Mass/Vol]17 mg/dLNormal5-27[facility] Comment on above:Performed By: #### CBCA ####[facility] ([id number])[address] [place] [address] 09838#### 45640-5, [facility], [facility]4- ####[facility] ([id number])[address], [address] [place] [address] 64755ZTA Photometric method (Bld) [Velocity]on 56-25-6440WHJ, ERYTHROCYTE SEDIMENTATION RATE33 mm/hHigh0-20ProMayhill HospitalComment on above:Performed By: #### CBCA ####[facility] ([id number])[address] [place] [address] 56666#### 52854-4, [facility], [facility]4 ####[facility] ([id number])[address], [address] [place] [address] 11780DV BIOPSY BONE SUPERFICIAL PERCon 12-32-5214NC BIOPSY BONE SUPERFICIAL PERCNormalProMayhill HospitalPROTIME AND INRon 33-23-2433AZB Coag (PPP) [Relative time]1.1 {INR}Normal0.8-1.1[facility]ton State HospitalComment on above: Performed By: #### PINR ####[facility] ([id number])[address] [place] [address] 13559PG Coag (PPP) [Time]12.4 sNormal9.8-13.2 [facility] HospitalComment on above:Result Comment: NEW REFERENCE RANGE Performed By: #### PINR ####[facility] ([id number])[address] [place] [address] 14559Flgqrmpe Pathologyon 09-00-3211Cmsulrom PathologyNormalProMedica Patton State HospitalComment on above:Result Comment: [facility] [address] [place] [address] Surgical Pathology ConsultationPatient Name:TORSTEN HAYWOOD:1955 (Age: 68)Gender:MTaken:03/10/2024eported:03/18/2024hysician(s):Sydnie Garcia ([phone])Copy To:Arabella Guerrero [facility] Hospitalession #:[id number]. Rec. #:[id number]: #[id number] Pathologic Diagnosis Left ischium bone: Unremarkable bone. No maligancy identified. Report Electronically Signed Outssi/03/18/2024Sujeff Bartlett [place] [address], License number: [id number].Clinical HistoryHodgkin lymphoma of intrapelvic lymph nodes, unspecified Hodgkin lymphoma type C81.96.Bone lesion M89.9.Gross DescriptionReceived in formalin labeled YOBANY, left ischium is a 0.7 x 0.4 cm yellow-cadena bone core with no attached soft tissue. The specimen is filtered and entirely submitted in 1 cassette, following brief decalcification in Rapid Sarah [employer]. (1, ns, [id number], m1) MWmxw/03/11/2024NSKSpecimen(s) Received Left ischiumFee Codes(s):1; 45768, 58032RULI ACIDon 58-47-5028Pnity [Mass/Vol]4.3 mg/dLNormal2.6-7.2[facility] State HospitalComment on above:Performed By: #### CBCA ####[facility] ([id number])[address] [place] [address]#### 26115-2, CMP, 3084-1 ####[facility] ([id number])[address] [facility], [address], [place] [address]Srxeur Visiton 02-22-2024 Follow-up [id number] Torsten Haywood 1955 M Date Provider Department Center 02/22/2024 FRANCISCO LEE Family History Problem Relation Age of Onset Coronary artery disease Father Coronary artery disease Brother Family Status - Relation Status Age at Father Brother Level of Service:11354 [place] OFFICE/OUTPATIENT ESTABLISHED MOD MDM [address] [facility] THIGHon 84-52-4620BRZ CT SKULL TO [facility]36on 27-15-132109Wmmxqgn was seen in [facility] and today at [facility] ED for epistaxis. He is on Eliquis for afib and Factor V. He hasn't taken Eliquis since Thursday morning, when the first epistaxis began. Sister in law called to let us know [facility] advised him to resume it, but to check with you also. She asked if he should maybe take Eliquis once daily. I told her NO. I told her to do as the ED physician advised until hearing from you. I know he sees oncology/hematology and suggested she ask their office as well. Ok to resume Eliquis as per advice? ThanksNormalUniKeenan Private Hospital36 on [id number] called and states he is having nosebleeds and wanted you to be aware and if he should continue with Eliquis. Please advise.NormalEast Liverpool City HospitalTelephoneon 02-15-2024 [id number] Torsten Haywood 1955 M Date Provider Department Center 02/15/2024 241-TRI, [facility] Family History Problem Relation Age of Onset Coronary artery disease Father Coronary artery disease Brother Family Status - Relation Status Age at Father BrotherNormalUniversity of Children'S Hospital Of San AntonioCBC AND AUTO DIFFon 02-09-2024 ABSOLUTE BASOPHIL0.1 X10E9/LNormal0.0-0.2[facility] State HospitalComment on above:Performed By: #### MAGALI, 3084-1, CBCA ####[facility] ([id number])[address] [place] [address] 88208#### 94007-8 ####[facility] ([id number])[address] [place] [address], [address] [place] [address] 11741Riktrketu/100 WBC (Bld)1.0 %NormalProMayhill HospitalComment on above:Performed By: #### MAGALI, 3084-, CBCA ####[facility] ([id number])[address] [place] [address] 59119#### 80447-5 ####[facility] ([id number])[address] [place] [address], [address] [place] [address] 23642Nugkfgprouy (Bld) [#/Vol]0.2 10*3/uLNormal0.0-0.4ProMayhill HospitalComment on above:Performed By: #### MAGALI, 3084-, CBCA ####[facility] ([id number])[address] [place] [address] 89850#### 30707-4 ####[facility] ([id number])[address] [place] [address], [address] [place] [address] 92386Rjelifcbwpw/100 WBC (Bld)2.0 %NormalProMayhill HospitalComment on above:Performed By: #### MAGALI, 3084-, CBCA ####[facility] ([id number])[address] [place] [address] 57810#### 59790-5 ####[facility] ([id number])[address] [place] [address], [address] [place] [address] 52660Obaqkqbqeiz distribution width (RBC) [Ratio]17.1 %High 11.5-15.0ProMayhill HospitalComment on above:Performed By: #### MAGALI, 308-1, CBCA ####[facility] ([id number])[address] [place] [address] 48220#### 13037-3 ####[facility] ([id number])[address] [place] [address], [address] [place] [address] 03492Ntdfyfklty (Bld) [Volume fraction]41.8 %Qbrpdr45-57LstCwfdbvMayhill HospitalComment on above:Performed By: #### MAGALI, 3083-, CBCA ####[facility] ([id number])[address] [place] [address] 78415#### 20821-5 ####[facility] ([id number])[address] [place] [address], [address] [place] [address] 33069Ewmfjfvkzi (Bld) [Mass/Vol]14.0 g/gIVwjsed39.0-17.0ProMayhill HospitalComment on above: Performed By: #### MAGALI, 3083-, CBCA ####[facility] ([id number])[address] [place] [address] 87814#### 48179-3 ####[facility] ([id number])[address] [place] [address], [address] [place] [address] 31013OANYLA-TRQGN BODY1+AbnormalNONEProMedica Patton State HospitalComment on above: Performed By: #### MAGALI, 3083-, CBCA ####[facility] ([id number])[address] [place] [address] 85318#### 23227-1 ####[facility] ([id number])[address], [address] [place] [address] 86557ZDOPGVYWHK, ATYPICAL4.0 %NormalProMayhill HospitalComment on above: Performed By: #### MAGALI, 3084-1, CBCA ####[facility] ([id number])[address] [place] [address] 01822#### 23536-4 ####[facility] ([id number])[address], [address], [place] [address]Djcvryqltba (Bld) [#/Vol]4.4 10*3/uLHigh1.0-3.5[facility] Comment on above:Performed By: #### MAGALI, 3084-1, CBCA ####[facility] ([id number])[address] [place] [address] 07695#### 83539-2 ####[facility] ([id number])0 [facility], [address] [place] [address] 94149Rgirtvmqzar/100 WBC (Bld)40.0 %NormalProMayhill HospitalComment on above:Performed By: #### MAGALI, 308-, CBCA ####[facility] ([id number])[address] [place] [address] 58855#### 94844-7 ####[facility] ([id number])[address], [address], [place] [address]AXF (RBC) [Entitic mass]35.3 eyXbyo09-26VvrTztvftMayhill HospitalComment on above:Performed By: #### MAGALI, 3084-1, CBCA ####[facility] ([id number])[address] [place] [address] 74495#### 26410-4 ####[facility] ([id number])[address] [facility], [address], [place] [address]YYCZ (RBC) [Mass/Vol]33.4 g/vKImeavd01-56XvyMqilufMayhill HospitalComment on above:Performed By: #### MAGALI, 3084-1, CBCA ####[facility] ([id number])[address] [place] [address] 89653#### 16725-7 ####[facility] ([id number])[address] [facility], [address], [place] [address]SZO (RBC) [Entitic vol] 106 xYPbzv15-271TnrCkwuydMayhill HospitalComment on above:Performed By: #### MAGALI, 3084-1, CBCA ####[facility] ([id number])[address] [place] [address] 48876#### 08710-6 ####[facility] ([id number])[address] [facility], [address] [place] [address] 01662Bizvcsstx (Bld) [#/Vol] 2.0 10*3/uLHigh0-0.9Berger HospitalComment on above:Performed By: #### MAGALI, 3084-1, CBCA ####[facility] ([id number])[address] [place] [address] 10297#### 05627-2 ####[facility] ([id number])[address] [facility], [address], [place] [address]Wttoxhxhv/100 WBC (Bld) 20.0 %NormalProMayhill HospitalComment on above:Performed By: #### MAGALI, 3084-1, CBCA ####[facility] ([id number])[address] [place] [address] 66622#### 49013-0 ####[facility] ([id number])[address], [address], [place] [address]Tarvjszlaqs (Bld) [#/Vol] 3.3 10*3/uLNormal1.5-6.6ProMayhill HospitalComment on above:Performed By: #### MAGALI, 3084-1, CBCA ####[facility] ([id number])[address] [place] [address] 47530#### 00949-3 ####[facility] ([id number])[address] [facility], [address] [place] [address] 25977UURUQGEUP RBC3.0 /100 WBCHigh0.0-1.0ProMayhill HospitalComment on above:Performed By: #### MAGALI, 3084-1, CBCA ####[facility] ([id number])[address] [place] [address] 54960#### 68270-5 ####[facility] ([id number])[address] [facility], [address] [place] [address] 71691Axvmfkuc mean volume (Bld) [Entitic vol]9.7 fLNormal7-12[facility] State HospitalComment on above: Performed By: #### MAGALI, 3084-1, CBCA ####[facility] ([id number])[address] [place] [address] 42503#### 63053-3 ####[facility] ([id number])[address] [facility], [address] [place] [address] 13004Dpnzsvfyy (Bld) [#/Vol]310 10*3/lDNdzqio159-814EujPjfoxf [facility] Comment on above:Performed By: #### MAGALI, 3084-1, CBCA ####[facility] ([id number])[address] [place] [address] 49237#### 60802-9 ####[facility] ([id number])[address], [address], [place] [address]TGP COUNT3.95 X10E12/LLow4.10-5.70ProMay[facility] Hospital Comment on above:Performed By: #### MAGALI, 3084-1, CBCA ####[facility] ([id number])[address] [place] [address] 78643#### 83560-8 ####[facility] ([id number])[address], [address], [place] [address]RCP morphology finding Nom (Bld)REVIEWEDNormalProMayhill HospitalComment on above:Performed By: #### MAGALI, 3084-1, CBCA ####[facility] ([id number])[address] [place] [address] 94118#### 43832-1 ####[facility] ([id number])[address], [address], [place] [address]BFN OSPJVTGEJW24.0 %Normal [facility] State HospitalComment on above:Performed By: #### MAGALI, 3084-, CBCA ####[facility] ([id number])[address] [place] [address] 06575#### 80468-8 ####[facility] ([id number])[address], [address] [place], [place] [address]RZP (Bld) [#/Vol]10.0 10*3/uLNormal4.0-11.0Berger HospitalComment on above:Performed By: #### MAGALI, 3084-1, CBCA ####[facility] ([id number])[address] [place] [address] 01655#### 07006-5 ####[facility] ([id number])[address], [address] [place], [place] [address]KKPZYVOPCJHTA METABOLIC PANELon 38-68-5517Kvxddax [Mass/Vol]3.3 g/dLNormal3.2-5.3[facility] State HospitalComment on above:Performed By: #### MAGALI, 3084-1, CBCA ####[facility] ([id number])[address] [place] [address] 95361#### 49111-2 ####[facility] ([id number])0 [facility], [address] [place] [address]OHW [Catalytic activity/Vol]59 U/YVydvuy42-640YjbZkzsriMayhill HospitalComment on above:Performed By: #### MAGALI, 3084-1, CBCA ####[facility] ([id number])[address] [place] [address] 73954#### 70986-7 ####[facility] ([id number])0 [facility], [address] [place] [place] [address]OJQ [Catalytic activity/Vol]23 U/LNormal0-40ProMayhill HospitalComment on above: Performed By: #### MAGALI, 3084-1, CBCA ####[facility] ([id number])[address] [place] [address] 58231#### 61847-8 ####[facility] ([id number])[address] [place] [place] [address]Kadef gap [Moles/Vol]8 mmol/LNormal5-15ProMayhill HospitalComment on above:Performed By: #### MAGALI, 3084-1, CBCA ####[facility] ([id number])[address] [place] [address] 12111#### 05488-1 ####[facility] ([id number])[address] [facility], [address] [place], [place] [address]FRP [Catalytic activity/Vol]31 U/LNormal0-41[facility] Comment on above:Performed By: #### MAGALI, 3084-1, CBCA ####[facility] ([id number])[address] [place] [address] 01379#### 95524-4 ####[facility] ([id number])[address] [facility], [address] [place], [place] [address]Zqtiibsac [Mass/Vol]0.5 mg/dLNormal0.3-1.2POhioHealth Hardin Memorial HospitalComment on above:Performed By: #### MAGALI, 3084-1, CBCA ####[facility] ([id number])[address] [place] [address] 50556#### 17192-2 ####[facility] ([id number])[address] [facility], [address], [place] [address]Naydpfz [Mass/Vol]9.4 mg/dLNormal8.5-10.5POhioHealth Hardin Memorial HospitalComment on above:Performed By: #### MAGALI, 3084-, CBCA ####[facility] ([id number])[address] [place] [address] 85825#### 42328-1 ####[facility] ([id number])[address] [facility], [address] [place], [place] [address]Mkklrprc [Moles/Vol]100 mmol/WLthebh28-786UkgKbrtdfMayhill HospitalComment on above:Performed By: #### MAGALI, 3084-, CBCA ####[facility] ([id number])[address] [place] [address] 62805#### 99379-6 ####[facility] ([id number])[address], [address], [place] [address]FC9 [Moles/Vol]29 mmol/WOoptij13-81VrzMsjnji Patton State HospitalComment on above:Performed By: #### MAGALI, 308-, CBCA ####[facility] ([id number])[address] [place] [address] 32057#### 84873-0 ####[facility] ([id number])[address], [address] [place] [address] 87458Dxguqtbcbu [Mass/Vol] 0.79 mg/dLNormal0.70-1.20ProMayhill HospitalComment on above:Result Comment: METHOD TRACEABLE TO IDMS STANDARDPerformed By: #### MAGALI, 3083-, CBCA ####[facility] ([id number])[address] [place] [address]100#### 06531-4 ####[facility] ([id number])[address], [address] [place] [address] 47439kQCI (CKD-EPI) NON-RACE DEPENDENT>90Normal>59ProMayhill HospitalComment on above:Result Comment: Reported eGFR is based on theCKD-EPI 2020 equation that doesnot use a race coefficient.Performed By: #### MAGALI, 308-, CBCA ####[facility] ([id number])[address] [place] [address]68#### 52631-0 ####[facility] ([id number])[address] [address] [place] [address]2352Aadevon [Mass/Vol]111 mg/vTMitb18-02LfyFypjvpMayhill HospitalComment on above:Performed By: #### MAGALI, 308-, CBCA ####[facility] ([id number])[address] [place] [address]39#### 86727-1 ####[facility] ([id number])[address], [address] [place], [place] [address]Mjikunimh [Moles/Vol]4.2 mmol/LNormal3.5-5.0ProMayhill Hospital Comment on above:Performed By: #### MAGALI, 3084-1, CBCA ####[facility] ([id number])[address] [place] [address] 20391#### 78422-6 ####[facility] ([id number])[address], [address], [place] [address]Odwbiim [Mass/Vol]6.1 g/dLNormal6.0-8.0ProMayhill HospitalComment on above:Performed By: #### MAGALI, 3084-1, CBCA ####[facility] ([id number])[address] [place] [address]502#### 77034-9 ####[facility] ([id number])[address], [address], [place] [address]Noxmbp [Moles/Vol]137 mmol/JCiuluz899-645MhhXzefhr Fremont HospitalComment on above:Performed By: #### MAGALI, 3084-1, CBCA ####[facility] ([id number])[address] [place] [address] 60482#### 02459-0 ####[facility] ([id number])[address], [address] [place], [place] [address]Lltm nitrogen [Mass/Vol]15 mg/dLNormal5-27ProMayhill HospitalComment on above:Performed By: #### MAGALI, 3084-1, CBCA ####[facility] ([id number])[address] [place] [address] 41885#### 70642-1 ####[facility] ([id number])[address] [facility], [address] [place] [address]ZOE Photometric method (Bld) [Velocity]on 46-48-6775KHM, ERYTHROCYTE SEDIMENTATION RATE8 mm/hNormal0-20 [facility] State HospitalComment on above:Performed By: #### MAGALI, 3084-1, CBCA ####[facility] ([id number])[address] [place] [address]49#### 01755-6 ####[facility] ([id number])[address] [place] [address], [address] [address]EZBK ACIDon 62-41-1366Bmapt [Mass/Vol]4.5 mg/dLNormal2.6-7.2ProMedica [facility] State HospitalComment on above: Performed By: #### MAGALI, 3084-1, CBCA ####[facility] ([id number])[address] [place] [address]282#### 58956-3 ####[facility] ([id number])[address] [place] [address] 398[address]Ybstrowedl Visit Summaryon 83-03-9478Jefobqzqie Visit SummaryAmbulatory Visit Summary TORSTEN HAYWOOD :1955 Visit Date:02/04/2024 Ambulatory Visit Instructions Your Diagnosis BMI 27.0-27.9,adult Overweight Nonsmoker Polyneuropathy, unspecified Unspecified atrial fibrillation Hodgkin lymphoma, unspecified, unspecified site Your Care Team Attending Physician - Antione Hobbs MD Primary Care Physician - Antoine Hobbs MD This Is Your Medications List [place] [facility] Prescription (Keron Guevara, 5 years.) acetaminophen (acetaminophen [...] Follow-Up Appointments Thursday 8:00 AM EST Where: [place] [id number]- Medications What How Much When Why Instructions [...] you for choosing us for your care. [facility] Medicine Office/Clinic Noteon 19-93-5006Bnmddk Medicine Office/Clinic NoteFaedith nourse [facility] Medicine Office/Clinic Note Chief Complaint Follow-up and management of Hodgkin's Lymphoma and associated conditions HPI Staff Torsten is a 68 year old male presenting for hospital follow up from september Hospital: [facility] Admission date: 09/30/23 Discharge date: 10/10/23 Symptoms [...] the chemotherapeutic regimen, and reports having tried wtbg-tkj-cdjkhzf B-complex vitamins upon suggestion. The patient's history [...] (Most Recent) 3074F 6. Polyneuropathy, unspecified (G62.9) Oeuw-spw-fnprxbc B-complex vitamins explored. Consider further assessment and management of symptoms shoul (more content not included)...[facility] MemorialComment on above:Result Comment: Electronically Signed By: Yfn ESCOBEDO, Antoine Avila\.br\Date and Time Signed: 02/04/24 10:15 ESTCBC AND AUTO DIFFon 41-44-4940VCVHLEEP BASOPHIL0.2 X10E9/LNormal0.0-0.2[facility] Comment on above:Performed By: #### MAGALI CBCA, 3084-1 ####[facility] ([id number])[address] [place] [address] 50816#### 67397-7 ####[facility] ([id number])[address] [place] [address], [address] [place] [address] 48553Tpfhezbuq/100 WBC (Bld)2.0 %NormalProMedica [facility] Comment on above:Performed By: #### CMP, CBCA, 3084-1 ####[facility] ([id number])[address] [place] [address] 66499#### 03941-7 ####[facility] ([id number])[address], [address] [place] [address] 57926Snhqulhsljk (Bld) [#/Vol]0.1 10*3/uLNormal0.0-0.4ProMayhill HospitalComment on above:Performed By: #### CMP, CBCA, 3083-1 ####[facility] ([id number])[address] [place] [address] 92172#### 60312-7 ####[facility] ([id number])[address] [facility], [address] [place] [address] 53410Lxlyjmiookp/100 WBC (Bld) 1.0 %NormalProMayhill HospitalComment on above:Performed By: #### CMP, CBCA, 3083- ####[facility] ([id number])[address] [place] [address] 45436#### 03495-2 ####[facility] ([id number])[address] [facility], [address] [place] [address] 06519Ydzjubmjckq distribution width (RBC) [Ratio]17.2 %High11.5-15.0ProMayhill HospitalComment on above:Performed By: #### CMP, CBCA, 3083- ####[facility] ([id number])[address] [place] [address] 47939#### 55592-7 ####[facility] ([id number])0 [facility], [address] [place] [address] 44589Copivkflyb (Bld) [Volume fraction]41.7 %Ufwzxn76-08ZhgBkivewMayhill HospitalComment on above:Performed By: #### CMP, CBCA, 3083-1 ####[facility] ([id number])[address] [place] [address] 75714#### 41713-4 ####[facility] ([id number])0 [facility], [address] [place] [address] 15835Uufyexqpee (Bld) [Mass/Vol]14.1 g/aEQlqbti81.0-17.0 [facility] HospitalComment on above:Performed By: #### CMP, CBCA, 3083-1 ####[facility] ([id number])[address] [place] [address] 00117#### 17874-8 ####[facility] ([id number])2129 [facility], [address] [place] [address] 05555UHASAK-XCDNG BODY1+Abnormal NONEProMedica Patton State HospitalComment on above:Performed By: #### CMP, CBCA, 3083- ####[facility] ([id number])[address] [place] [address] 59843#### 68938-9 ####[facility] ([id number])0 [facility], [address] [place] [address] 11198Bpphgksgicr (Bld) [#/Vol] 4.1 10*3/uLHigh1.0-3.5[facility] HospitalComment on above:Performed By: #### CMP, CBCA, 3083- ####[facility] ([id number])[address] [place] [address] 99696#### 71878-9 ####[facility] ([id number])2130 [facility], [address] [place] [address] 03252Xvkbpvajpxh/100 WBC (Bld)37.0 %NormalProMedica Patton State HospitalComment on above:Performed By: #### CMP, CBCA, 3083-1 ####[facility] ([id number])[address] [place] [address] 66866#### 44506-2 ####[facility] ([id number])[address], [address] [place] [address] 51590HBQ (RBC) [Entitic mass]35.5 ncJkox66-88UprUuxdccMayhill HospitalComment on above:Performed By: #### CMP, CBCA, 308-1 ####[facility] ([id number])[address] [place] [address] 09623#### 20679-8 ####[facility] ([id number])2129 [facility], [address] [place] [address] 27664TQWG (RBC) [Mass/Vol] 33.7 g/yPXeijea85-80OcnPchscrMayhill HospitalComment on above:Performed By: #### CMP, CBCA, 3083- ####[facility] ([id number])[address] [place] [address] 58301#### 58212-0 ####[facility] ([id number])2129 [facility], [address] [place] [address] 86432IMP (RBC) [Entitic vol] 105 vLIqxz59-744SimCmogveMayhill HospitalComment on above:Performed By: #### CMP, CBCA, 3083- ####[facility] ([id number])[address] [place] [address] 78898#### 19327-4 ####[facility] ([id number])2129 [facility], [address] [place] [address] 40151Zfapztzlg (Bld) [#/Vol] 1.8 10*3/uLHigh0-0.9ProMayhill HospitalComment on above:Performed By: #### CMP, CBCA, 3083-1 ####[facility] ([id number])[address] [place] [address] 22307#### 66154-9 ####[facility] ([id number])0 [facility], [address] [place] [address] 26585Prcddaxul/100 WBC (Bld) 16.0 %NormalProMayhill HospitalComment on above:Performed By: #### MAGALI, CBCA, 4-1 ####[facility] ([id number])[address] [place] [address] 46251#### 21230-8 ####[facility] ([id number])[address]129 [facility], [address] [place] [address] 11661Tjrbaqffxgl (Bld) [#/Vol] 5.0 10*3/uLNormal1.5-6.6ProBlanchard Valley Health System Blanch[facility] Hospitalca [facility] State HospitalComment on above:Performed By: #### MAGALI, CBCA, 3083- ####[facility] ([id number])[address] [place] [address] 04923#### 29623-0 ####[facility] ([id number])2129 [facility], [address] [place] [address] 95054ZHYKPXEWA RBC2.0 /100 WBCHigh0.0-1.0ProMayhill HospitalComment on above:Performed By: #### MAGALI, CBCA, 3083- ####[facility] ([id number])[address] [place] [address] 04924#### 28128-5 ####[facility] ([id number])2[address] [facility], [address] [place] [address] 25652Ozlqceok mean volume (Bld) [Entitic vol]9.5 fLNormal7-12[facility] HospitalComment on above: Performed By: #### CMP, CBCA, 3083-1 ####[facility] ([id number])[address] [place] [address] 11352#### 56616-8 ####[facility] ([id number])2130 [facility], [address] [place] [address] 87950Vpmyultbk (Bld) [#/Vol]330 10*3/uNNvomyy030-507GqfFoeodjBerger Hospital Comment on above:Performed By: #### CMP, CBCA, 3084-1 ####[facility] ([id number])[address] [place] [address] 97685#### 72905-2 ####[facility] ([id number])[address] [facility], [address] [place] [address] 35288LXE COUNT3.96 X10E12/LLow4.10-5.70[facility] Comment on above:Performed By: #### CMP, CBCA, 3084-1 ####[facility] ([id number])[address] [place] [address] 08510#### 91718-4 ####[facility] ([id number])[address] [facility], [address] [place] [address] 60246USW GKKVFFFQLB99.0 %NormalProMayhill HospitalComment on above:Performed By: #### CMP, CBCA, 3083-1 ####[facility] ([id number])[address] [place] [address] 37967#### 93847-6 ####[facility] ([id number])2130 [facility], [address] [place] [address] 31115UFP (Bld) [#/Vol]11.2 10*3/uLHigh4.0-11.0Berger HospitalComment on above:Performed By: #### CMP, CBCA, 308-1 ####[facility] ([id number])[address] [place] [address] 05000#### 93018-6 ####[facility] ([id number])[address], [address] [place] [place], [place] [address]DJJIABUBPNZHA METABOLIC PANELon 59-76-6129Tfjrglx [Mass/Vol]3.3 g/dLNormal 3.2-5.3[facility] HospitalComment on above:Performed By: #### OG DE LOS SANTOS, 3084-1 ####[facility] ([id number])[address] [place] [address] 29873#### 94930-8 ####[facility] ([id number])0 [facility], [address] [place], [place] [address]STA [Catalytic activity/Vol]69 U/BAomzuq46-283LunWkgjqwMayhill HospitalComment on above: Performed By: #### OG DE LOS SANTOS, 3084-1 ####[facility] ([id number])[address] [place] [address] 53591#### 21443-0 ####[facility] ([id number])[address], [address] [place] [place] [place] [address]GOQ [Catalytic activity/Vol]25 U/LNormal0-40ProMayhill Hospital Comment on above:Performed By: #### OG DE LOS SANTOS, 3084-1 ####[facility] ([id number])[address] [place] [address] 66454#### 16829-8 ####[facility] ([id number])[address], [address] [place] [address]Whflm gap [Moles/Vol]9 mmol/LNormal5-15ProMayhill HospitalComment on above:Performed By: #### MAGALI CBCTrang, 3084-1 ####[facility] ([id number])[address] [place] [address] 13166#### 96658-5 ####[facility] ([id number])0 [facility], [address], [place] [address]GJE [Catalytic activity/Vol]33 U/LNormal0-41ProMayhill HospitalComment on above:Performed By: #### OG DE LOS SANTOS, 3084-1 ####[facility] ([id number])[address] [place] [address] 15358#### 23104-3 ####[facility] ([id number])[address] [facility], [address] [place] [address] 60053Btizfgkek [Mass/Vol]0.6 mg/dLNormal0.3-1.2POhioHealth Hardin Memorial HospitalComment on above:Performed By: #### OG DE LOS SANTOS, 3084-1 ####[facility] ([id number])[address] [place] [address] 64968#### 34017-7 ####[facility] ([id number])[address] [facility], [address] [place] [address] 60673Zwqdqcp [Mass/Vol]9.2 mg/dLNormal8.5-10.5POhioHealth Hardin Memorial HospitalComment on above:Performed By: #### OG DE LOS SANTOS, 3084-1 ####[facility] ([id number])[address] [place] [address] 38412#### 82941-1 ####[facility] ([id number])0 [facility], [address] [place], [place] [address]Ytpoltay [Moles/Vol]100 mmol/NClovky32-720ZulKdqaaiMayhill HospitalComment on above:Performed By: #### OG DE LOS SNATOS, 3084-1 ####[facility] ([id number])[address] [place] [address]#### 57346-5 ####[facility] ([id number])[address] [facility], [address] [address]CH8 [Moles/Vol]29 mmol/YZqpfwy55-42FaoZjvawg Fremont HospitalComment on above:Performed By: #### OG DE LOS SANTOS, 3084-1 ####[facility] ([id number])[address] [place] [address] 15435#### 06281-4 ####[facility] ([id number])[address] [address]Buatzthqpv [Mass/Vol] 0.77 mg/dLNormal0.70-1.20ProMayhill HospitalComment on above:Result Comment: METHOD TRACEABLE TO IDMS STANDARDPerformed By: #### OG DE LOS SANTOS, 3084-1 ####[facility] ([id number])[address] [place] [address] 44471#### 63760-8 ####[facility] ([id number])[address] [place] [address] 03758jFCT (CKD-EPI) NON-RACE DEPENDENT>90Normal>59ProMayhill HospitalComc.s. [facility] on above:Result Comment: Reported eGFR is based on theCKD-EPI 2020 equation that doesnot use a race coefficient.Performed By: #### OG DE LOS SANTOS, 3083- ####[facility] ([id number])[address] [place] [address] 14306#### 75788-0 ####[facility] ([id number])[address] [address]Nwrjucd [Mass/Vol]160 mg/dWTmoi56-09ErzVnyjtiMayhill HospitalComment on above:Performed By: #### OG DE LOS SANTOS, 3083-1 ####[facility] ([id number])[address] [place] [address] 53172#### 10172-5 ####[facility] ([id number])2129 [facility], [address] [place], [place] [address]Cwdwphpli [Moles/Vol]4.1 mmol/LNormal3.5-5.0ProMayhill Hospital Comment on above:Performed By: #### OG DE LOS SANTOS, 3084-1 ####[facility] ([id number])[address] [place] [address] 67797#### 38886-4 ####[facility] ([id number])[address] [facility], [address], [place] [address]Uefyvgl [Mass/Vol]6.2 g/dLNormal6.0-8.0ProMayhill HospitalComment on above:Performed By: #### OG DE LOS SANTOS, 3083-1 ####[facility] ([id number])[address] [place] [address] 74013#### 71102-8 ####[facility] ([id number])[address] [facility], [address] [place] [address]Rqtzuz [Moles/Vol]138 mmol/QVpalsd544-894MtlJmusah [facility]ont HospitalComment on above:Performed By: #### OG DE LOS SANTOS, 3083-1 ####[facility] ([id number])[address] [place] [address] 55925#### 19851-5 ####[facility] ([id number])[address] [facility], [address], [place] [address]Qhse nitrogen [Mass/Vol]13 mg/dLNormal5-27ProMayhill HospitalComment on above:Performed By: #### OG DE LOS SANTOS, 3083-1 ####[facility] ([id number])[address] [place] [address] 94891#### 33984-6 ####[facility] ([id number])[address], [address] [place] [address] 656[address]NYV Photometric method (Bld) [Velocity]on 56-34-3457WHV, ERYTHROCYTE SEDIMENTATION RATE9 mm/hNormal0-20 [facility] HospitalComment on above:Performed By: #### CMP, CBCA, 3084-1 ####[facility] ([id number])[address] [place] [address] 97500#### 86058-6 ####[facility] ([id number])[address], [address] [address]LRLN ACIDon 05-40-8687Vrmsa [Mass/Vol]4.7 mg/dLNormal2.6-7.2[facility] HospitalComment on above: Performed By: #### CMP, CBCA, 3084-1 ####[facility] ([id number])[address] [place] [address] 77881#### 87512-3 ####[facility] ([id number])[address], [address] [address]Fyzctxanxl Visit Summaryon 14-06-0316Lcinhxqotb Visit SummaryAmbulatory Visit Summary TORSTEN HAYWOOD :1955 [...] Tablets By Mouth Every day Pickup at [facility] Changed mirtazapine (Remeron 15 mg Tab) 1 Tablets By Mouth Once a day (at bedtime) Pickup at [facility] Unchanged acetaminophen (acetaminophen 500 mg [...] physician if questions or concerns Pharmacy Information [facility]: [address] [place], [place] [id number] [phone] Allergies No Known Allergies No Known Medication [...] to identify p (more content not included)... [facility] Medicine Office/Clinic Noteon 10-19-2023 Family Medicine Office/Clinic NoteFa[facility] Office/Clinic Note HPI Staff Torsten is a 67 year old male presenting for a face to face for home health services. [facility] so needs the visit Spent 12 days in [facility] with norovirus after his first chemo [...] artery disease) (I25.10: Atherosclerotic heart disease of [place] coronary artery without angina pectoris) - NO [...] Most recent diastolic blood (more content not included)...[facility] MemorialComment on above:Result Comment: Electronically Signed By: Yfn ESCOBEDO, Antoine Lopezbr\Date and Time Signed: 10/19/23 14:20 [facility] Health Recordson 89-23-5640Lcve Health [id number]#1.00TIFF [facility] MemorialNursing Home Recordson 72-97-4388Eosqyem Home [id number]#1.00TIFFSouth[facility] Note-Physicianon 20-60-3910LM Note-Physician [id number]#1.00TIFFKettering Health Greene MemorialRAD - MISCon 14-87-7995KVF - MISC [id number]#1.00TIFLancaster Municipal HospitalIR PORT INSERTION > 5 YRSon 22-05-8118NG PORT INSERTION > 5 YRSNormal [facility]ica Hilger HospitalPLATELET COUNT AND MPVon 23-25-6555Gpvrnhgf mean volume (Bld) [Entitic vol]8.5 fLNormal7-12ProMedica Hilger HospitalComment on above: Performed By: #### GUSTAVO, 34569-4, PLTCT ####[facility] ([id number])[address] [facility], [address] [place] [address] 90368Cywgdajdv (Bld) [#/Vol]538 10*3/uHIqqu618-999XngLcoaif Hilger HospitalComment on above:Performed By: #### GUSTAVO, 67099-6, PLTCT ####[facility] ([id number])[address], [address], [place] [address]LUTEPTU AND INRon 40-52-9001ASK Coag (PPP) [Relative time]1.4 {INR}High0.8-1.1POur Lady of [facility] Anderson HospitalComment on above: Performed By: #### GUSTAVO 70618-1, PLTCT ####[facility] ([id number])[address], [address] [place] [place] [place] [address]EK Coag (PPP) [Time]15.6 s High9.8-13.2POur [facility] of [facility] - Anderson HospitalComment on above:Performed By: #### GUSTAVO 83232-8, PLTCT ####[facility] ([id number])[address], [address] [place], [place] [address]kOPH Coag (PPP) [Time]on 80-06-8026oUIY Coag (Bld) [Time]36 uEzwqyp24-22DhsOwpuuc [place] HospitalComment on above:Performed By: #### GUSTAVO 01243-0, PLTCT ####[facility] ([id number])[address], [address], [place] [address]BCYMC METABOLIC PANLon 45-47-4659Geiax gap [Moles/Vol]6 mmol/LNormal5-15ProPomerene Hospital HospitalComment on above:Performed By: #### CBCTrang, BMP ####[facility] ([id number])[address], [address], [place] [address]Prkusqj [Mass/Vol]9.1 mg/dLNormal8.5-10.5POur [facility] - [facility] HospitalComment on above:Performed By: #### CBCA, BMP ####[facility] ([id number])[address], [address], [place] [address]Mmsrezfm [Moles/Vol]95 mmol/VDck50-723NmwDklhnl [place] HospitalComment on above:Performed By: #### ISELA FOLEY ####[facility] ([id number])[address] [address] [place] [address]KK4 [Moles/Vol]35 mmol/POsht36-47UlgMfwctr [facility] HospitalComment on above:Performed By: #### OG BMP ####[facility] ([id number])[address] [address] [place], [place] [address]Huuvgzfgef [Mass/Vol]0.47 mg/dLLow0.60-1.30ProPomerene Hospital HospitalComment on above:Result Comment: METHOD TRACEABLE TO IDMS STANDARDPerformed By: #### ISELA FOLEY ####[facility] ([id number])[address] [address] [place] [address]dXGS (CKD-EPI) NON-RACE DEPENDENT>90Normal>59ProPomerene Hospital Hospital Comment on above:Result Comment: Reported eGFR is based on theCKD-EPI 2020 equation that doesnot use a race coefficient.Performed By: #### OG BMP ####[facility] ([id number])[address] [address] [place] [address]Nknkvke [Mass/Vol]87 mg/aUOamknw42-52LpsSrxsqn [place] HospitalComment on above:Performed By: #### OG BMP ####[facility] ([id number])[address] [address], [place] [address]Vapaxpxfe [Moles/Vol]4.9 mmol/LNormal3.5-5.0ProPomerene Hospital HospitalComment on above:Performed By: #### OG BMP ####[facility] ([id number])[address] [address] [place] [address]Qbpiok [Moles/Vol]136 mmol/UZcmbua314-394NrkVpmoeg [place] HospitalComment on above:Performed By: #### ISELA FOLEY ####[facility] ([id number])[address], [place] [address]Tmfy nitrogen [Mass/Vol]10 mg/dLNormal5-27ProMedica [facility]rell HospitalComment on above:Performed By: #### CBCA, BMP ####[facility] ([id number])[address], [address], [place] [address]PIM AND AUTO DIFFon 34-85-5055EIVNTPPI BASOPHIL0.0 X10E9/LNormal0.0-0.2[facility]rell HospitalComment on above:Performed By: #### CBCA, BMP ####[facility] ([id number])[address], [address] [place] [address]YACLBUID SNKCROVCSN13.0 X10E9/LHigh1.5-6.6[facility]rell HospitalComment on above:Performed By: #### CBCA, BMP ####[facility] ([id number])[address], [address] [place] [address]Ruyksyuiu/100 WBC (Bld)0.2 %NormalProMedica Hilger HospitalComment on above:Performed By: #### CBCA, BMP ####[facility] ([id number])[address], [address] [place] [address]Jyiembthsio (Bld) [#/Vol]0.1 10*3/uLNormal0.0-0.4[facility]rell HospitalComment on above:Performed By: #### CBCA, BMP ####[facility] ([id number])[address], [address] [place] [address] Eosinophils/100 WBC (Bld)0.8 %NormalProMedica Hilger HospitalComment on above: Performed By: #### CBCA, BMP ####[facility] ([id number])[address], [address], [place] [address]Pxqyhojekos distribution width (RBC) [Ratio] 18.1 %High11.5-15.0ProBlanch[facility] Hospitalca Hilger HospitalComment on above:Performed By: #### CBCTrang, BMP ####[facility] ([id number])[address], [address], [place] [address]Bqfitdhjnd (Bld) [Volume fraction]33.7 %Gep98-02SnxNprdtd Terrell HospitalComment on above:Performed By: #### CBCA, BMP ####[facility] ([id number])[address], [address], [place] [address]Imxrkkijey (Bld) [Mass/Vol]11.2 g/dLLow13.0-17.0ProBl[facility] Hospitalca Terrell HospitalComment on above: Performed By: #### CBCA, BMP ####[facility] ([id number])[address], [address], [place] [address]Enllcpubfll (Bld) [#/Vol]3.1 10*3/uLNormal 1.0-3.5Pro[facility] Terrell HospitalComment on above:Performed By: #### CBCA, BMP ####[facility] ([id number])[address], [address], [place] [address]Mpofpbroeqg/100 WBC (Bld)18.5 %NormalProBlanchard Valley Health System [facility] Hospitalca Hilger HospitalComment on above:Performed By: #### CBCA, BMP ####[facility] ([id number])[address], [address], [place] [address]YLK (RBC) [Entitic mass] 29.9 htNlysbt09-90RkmLuienc [facility]rell HospitalComment on above:Performed By: #### CBCA, BMP ####[facility] ([id number])[address], [address], [place] [address]DAIQ (RBC) [Mass/Vol]33.1 g/eBXpajyw53-57XraSsquuz [facility]rell HospitalComment on above:Performed By: #### CBCA, BMP ####[facility] ([id number])[address], [address], [place] [address]LMM (RBC) [Entitic vol]90 xTXgbwbv87-868HzhNhzzjd Terrell HospitalComment on above: Performed By: #### CBCA, BMP ####[facility] ([id number])[address], [address], [place] [address]Ctljqfjxx (Bld) [#/Vol]3.5 10*3/uLHigh0-0.9 [facility] Terrell HospitalComment on above:Performed By: #### CBCA, BMP ####[facility] ([id number])[address], [address], [place] [address]Kjevdemeo/100 WBC (Bld)20.8 %NormalProMedica Terrell HospitalComment on above:Performed By: #### CBCA, BMP ####[facility] ([id number])[address], [address], [place] [address]Snvgxsxakds/100 WBC (Bld) 59.7 %NormalProMedica Terrell HospitalComment on above:Performed By: #### CBCA, BMP ####[facility] ([id number])[address], [address], [place] [address]Ztkaywcn mean volume (Bld) [Entitic vol]8.3 fLNormal7-12ProMedica [facility]rell HospitalComment on above:Performed By: #### CBCA, BMP ####[facility] ([id number])[address], [address], [place] [address]Hpngswpfn (Bld) [#/Vol]475 10*3/bOSbhx590-344SqvKrykmi [facility]rell HospitalComment on above: Performed By: #### CBCA, BMP ####[facility] ([id number])[address], [address] [place] [address] 25652CADCAYESIMLAJ6+AbnormalNONEProMedica Terrell HospitalComment on above:Performed By: #### CBCTrang BMP ####[facility] ([id number])[address], [address] [place] [address] 92528JVG COUNT3.73 X10E12/LLow4.10-5.70ProMedica Terrell HospitalComment on above:Performed By: #### CBCTrang, BMP ####[facility] ([id number])[address], [address] [place] [address] 785[address]OTVUMC9+AbnormalNONEProMedica Terrell HospitalComment on above:Performed By: #### CBCTrang, BMP ####[facility] ([id number])[address], [address] [place] [address] 75206SHU (Bld) [#/Vol]16.8 10*3/uLHigh4.0-11.0ProMedica Terrell HospitalComment on above:Performed By: #### CBCTrang, BMP ####[facility] ([id number])[address], [address] [place] [address] 00740PAKTM HEPATITIS PANELon 78-25-9382IKSW HCV W/PCR REFLX Non-ReactiveNormalNRCTProMedica Terrell HospitalComment on above:Result Comment: If recent infection suspected, recommendrepeat testing (>2 months).Cjrtzk-nx-wvdqou ratio is <0.80.Performed By: #### CBCA, BMP, 30044-7, AHP, 08517-2 ####[facility] ([id number])[address], [address] [place] [address] 89994EZVJXZPVH A IGMNon-ReactiveNormalNRCTProMedica Terrell HospitalComment on above:Performed By: #### CBCA, BMP, 60978-0, AHP, 88341-9 ####[facility] ([id number])[address], [address] [place], [place] [address]FPJGEDIHE B CORE IGMNegativeNormalNEGProBlanchard [facility] Hospitalca Hilger HospitalComment on above:Performed By: #### OG, ISELA, 92891-9, AHP, 85508-2 ####[facility] ([id number])[address], [address] [place], [place] [address]CBUEQXASU B SURF AGNegativeNormalNEGProMedica Hilger HospitalComment on above:Performed By: #### OG, ISELA, 33271-3, AHP, 91317-7 ####[facility] ([id number])[address], [address] [place], [place] [address]KYBVW METABOLIC PANLon 65-67-8903Nujpc gap [Moles/Vol]5 mmol/LNormal5-15[facility] Comment on above:Performed By: #### OG, ISELA, 61906-5, AHP, 30790-2 ####[facility] ([id number])[address], [address] [place] [address] Calcium [Mass/Vol]9.2 mg/dLNormal8.5-10.5ProMedica Hilger HospitalComment on above:Performed By: #### OG, ISELA, 71929-6, AHP, 76955-2 ####[facility] ([id number])[address], [address] [place] [place], [place] [address]Btsbamoo [Moles/Vol]95 mmol/CFpk51-411BncJdbhte [facility]ger HospitalComment on above:Performed By: #### OG, BMP, 22009-4, AHP, 63829-3 ####[facility] ([id number])[address], [address], [place] [address]XE2 [Moles/Vol]34 mmol/L Ywss42-92GrhSefczz Terrell HospitalComment on above:Performed By: #### ISELA FOLEY, 71303-2, AHP, 28968-6 ####[facility] ([id number])[address] [address]Tzyhovxtlb [Mass/Vol]0.43 mg/dLLow0.60-1.30 ProMOhioHealth Pickerington Methodist HospitalComment on above:Result Comment: METHOD TRACEABLE TO IDMS STANDARDPerformed By: #### ISELA FOLEY, 32706-5, AHP, 82333-7 ####[facility] ([id number])[address] [address], [place] [address]cSFM (CKD-EPI) NON-RACE DEPENDENT>90Normal>59ProCincinnati Shriners HospitalComment on above:Result Comment: Reported eGFR is based on theCKD-EPI 2020 equation that doesnot use a race coefficient.Performed By: #### ISELA FOLEY, 91948-4, AHP, 31217-4 ####[facility] ([id number])[address] [address], [place] [address]Obnytsl [Mass/Vol]81 mg/cOWoscmb46-28EdzVazjpn [place] HospitalComment on above:Performed By: #### ISELA FOLEY, 51138-5, AHP, 65238-0 ####[facility] ([id number])[address] [address], [place] [address]Aguvtqkpf [Moles/Vol]5.0 mmol/LNormal3.5-5.0ProCincinnati Shrin[facility] Hospital Comment on above:Performed By: #### ISELA FOLEY, 70473-9, AHP, 05946-9 ####[facility] ([id number])[address] [place] [address] Sodium [Moles/Vol]134 mmol/XIwqpfo556-845KqyFiguey [place] HospitalComment on above:Performed By: #### ISELA FOLEY, 99112-5, AHP, 01415-9 ####[facility] ([id number])[address], [address] [place] [address] 90949Wdid nitrogen [Mass/Vol]9 mg/dLNormal5-27ProP[facility] Hospital HospitalComment on above:Performed By: #### CBCTrang, ISELA, 22145-3, AHP, 76510-0 ####[facility] ([id number])[address], [address] [place] [address] 17761KWB AND AUTO DIFFon 49-48-0724ZJHNJBOZ BASOPHIL0.1 X10E9/LNormal0.0-0.2PNationwide Children's Hospital Comment on above:Performed By: #### ISELA FOLEY, 26454-4, AHP, 71127-4 ####[facility] ([id number])[address], [address] [place] [address] ABSOLUTE XOALTJDKVF14.1 X10E9/LHigh1.5-6.6ProCincinnati Shriners HospitalComment on above:Performed By: #### CBCTrang, ISELA, 39993-1, AHP, 20876-9 ####[facility] ([id number])[address] [address] [place] [address] 81523Ibqjbfokj/100 WBC (Bld)0.7 %NormalProCincinnati Shriners HospitalComment on above:Performed By: #### CBCA, ISELA, 03308-0, AHP, 61352-2 ####[facility] ([id number])[address], [address] [place] [address] 39563Vflfrbumbpe (Bld) [#/Vol] 0.1 10*3/uLNormal0.0-0.4ProCincinnati Shriners HospitalComment on above:Performed By: #### CBCA, BMP, 13208-1, AHP, 82282-0 ####[facility] ([id number])[address], [address] [place] [address] 33267Nozogifluwl/100 WBC (Bld) 0.7 %NormalProMedica Hilger HospitalComment on above:Performed By: #### CBCISELA Costello, 02351-8, AHP, 59142-9 ####[facility] ([id number])[address], [address] [place] [address] 65705Gkjghsdlyiu distribution width (RBC) [Ratio] 17.8 %High11.5-15.0ProMedica Terrell HospitalComment on above:Performed By: #### CBCTrang, ISELA, 60402-2, AHP, 96633-6 ####[facility] ([id number])[address] [address] [place] [address] 56940Lvtenjnluo (Bld) [Volume fraction]35.8 %Xia47-20EkmGgplpf Terrell HospitalComment on above:Performed By: #### CBCISELA Costello, 15898-3, AHP, 05828-6 ####[facility] ([id number])[address] [address] [place] [address] 79001Bsoudcabdf (Bld) [Mass/Vol] 11.9 g/dLLow13.0-17.0ProBlanchard Valley Health System [facility] Hospitalca Terrell HospitalComment on above:Performed By: #### CBCTrang, ISELA, 34199-9, AHP, 43783-7 ####[facility] ([id number])[address] [address] [place] [address] 25866Uiisjzcuekf (Bld) [#/Vol] 4.0 10*3/uLHigh1.0-3.5ProMedica [facility]rell HospitalComment on above:Performed By: #### CBCA, BMP, 67922-4, AHP, 30705-1 ####[facility] ([id number])[address] [address] [place] [address] 23239Kmsdmvybjrg/100 WBC (Bld) 20.5 %NormalProMedica Terrell HospitalComment on above:Performed By: #### CBCA, BMP, 79264-8, AHP, 17252-7 ####[facility] ([id number])[address], [address] [place] [address] 41951LIC (RBC) [Entitic mass]30.2 toNfqpvd71-70 [facility] HospitalComment on above:Performed By: #### CBCA, BMP, 03171-1, AHP, 25313-5 ####[facility] ([id number])[address], [address] [place] [address] 31833AOQQ (RBC) [Mass/Vol]33.3 g/yGSxmvor74-68JmiPptlfa [facility]rell HospitalComment on above:Performed By: #### CBCA, BMP, 61377-8, AHP, 53337-9 ####[facility] ([id number])[address], [address] [place] [address] 20576KAR (RBC) [Entitic vol]91 kRUgvqgo95-693TxnUqnktl [facility]rell HospitalComment on above:Performed By: #### CBCA, BMP, 50571-6, AHP, 92824-6 ####[facility] ([id number])[address], [address] [place] [address] 66447Fyeocclyl (Bld) [#/Vol]3.0 10*3/uLHigh0-0.9ProMedica Terrell HospitalComment on above: Performed By: #### CBCA, BMP, 66025-9, AHP, 15692-9 ####[facility] ([id number])[address] [address] [place] [address] 82116Hfqqqjtvb/100 WBC (Bld)15.4 %NormalProMedica Terrell HospitalComment on above:Performed By: #### CBCA, BMP, 83624-1, AHP, 44516-0 ####[facility] ([id number])[address], [address] [place] [address] 00013Dvsetuafjpa/100 WBC (Bld) 62.7 %NormalProBlanchard Valley Health System [facility] Hospitalca Hilger HospitalComment on above:Performed By: #### CBCA, BMP, 23850-3, AHP, 03916-8 ####[facility] ([id number])[address], [address] [place] [address] 16795Olihlxvc mean volume (Bld) [Entitic vol]8.4 fLNormal7-12ProMedica Hilger HospitalComment on above:Performed By: #### CBCA, BMP, 51600-2, AHP, 23101-8 ####[facility] ([id number])[address], [address] [place] [address] 52464Izuvvbzge (Bld) [#/Vol]471 10*3/uLHigh 150-450ProMedica Hilger HospitalComment on above:Performed By: #### CBCA, BMP, 37579-6, AHP, 15795-0 ####[facility] ([id number])[address], [address] [place] [address] 10825JYC COUNT3.96 X10E12/LLow4.10-5.70Pro[facility] Hilger HospitalComment on above:Performed By: #### CBCA, BMP, 96614-0, AHP, 36881-2 ####[facility] ([id number])[address], [address] [place] [address] 22228IBI (Bld) [#/Vol]19.3 10*3/uLHigh4.0-11.0ProBlanchard Valley Health System [facility] Hospitalca Hilger HospitalComment on above:Performed By: #### CBCA, BMP, 39928-4, AHP, 61983-3 ####[facility] ([id number])[address], [address] [place] [address] 29536FGY Photometric method (Bld) [Velocity]on 15-01-2649HBG, ERYTHROCYTE SEDIMENTATION RATE72 mm/hHigh0-20Memorial Health SystemComment on above: Performed By: #### ISELA FOLEY, 11821-1, P, 90022-8 ####[facility] ([id number])[address], [place] [address]IFB 1+2 Ab+HIV1 p24 Ag IA Qlon 86-84-0950SBH 1 and 2 Ab/Ag ScreenNon-ReactiveNormalNRCTProCincinnati Shriners HospitalComment on above:Result Comment: This information has [...] resultsor diagnoses. Performed By: #### ISELA FOLEY, 00378-2, Manny, 97425-7 ####[facility] ([id number])[address], [address] [place] [address] 50107DXAZC METABOLIC PANLon 75-27-5732Pgcol gap [Moles/Vol]7 mmol/LNormal5-15[facility] Comment on above:Performed By: #### OG BMP ####[facility] ([id number])[address], [address], [place] [address]Gzcsyox [Mass/Vol]8.9 mg/dL Normal8.5-10.5PGlenwood Regional Medical Centerica [facility] Mansfield HospitalComment on above:Performed By: #### OG BMP ####[facility] ([id number])[address], [address], [place] [address]Lueaxoyq [Moles/Vol]97 mmol/PTjy69-937ZqnJzkudeCincinnati Shriners Hospital Comment on above:Performed By: #### ISELA FOLEY ####[facility] ([id number])[address] [address] [place], [place] [address]YT5 [Moles/Vol]33 mmol/L Ldhl29-77ZnzTzgxka [facility] HospitalComment on above:Performed By: #### OG, BMP ####[facility] ([id number])[address] [address] [place], [place] [address]Fyddbdvawt [Mass/Vol]0.29 mg/dLLow0.60-1.30[facility] Comment on above:Result Comment: METHOD TRACEABLE TO IDMS STANDARDPerformed By: #### OG BMP ####[facility] ([id number])[address] [address], [place] [address]oLHQ (CKD-EPI) NON-RACE DEPENDENT>90Normal>59ProPomerene Hospital HospitalComment on above:Result Comment: Reported eGFR is based on theCKD-EPI 2020 equation that doesnot use a race coefficient.Performed By: #### OG, BMP ####[facility] ([id number])[address] [address] [place], [place] [address]Hfcvnkw [Mass/Vol]90 mg/nVDeirlm99-13LosUyxvhv [place] HospitalComment on above:Performed By: #### OG, BMP ####[facility] ([id number])[address] [address] [place], [place] [address]Llaacjwqr [Moles/Vol]4.8 mmol/LNormal3.5-5.0ProP[facility] Hospital HospitalComment on above: Performed By: #### OG, BMP ####[facility] ([id number])[address] [address] [place], [place] [address]Wtuvfu [Moles/Vol]137 mmol/OXrjsky682-528 [facility] HospitalComment on above:Performed By: #### CBCA, BMP ####[facility] ([id number])[address] [place] [address] 61833Bbgw nitrogen [Mass/Vol]8 mg/dLNormal5-27ProP[facility] HospitalComment on above:Performed By: #### CBCA, BMP ####[facility] ([id number])[address], [address] [place] [address] 49694OGX AND AUTO DIFFon 56-85-8391Roqcpkymsxx distribution width (RBC) [Ratio]17.7 %High11.5-15.0 ProMPremier Health Atrium Medical Center HospitalComment on above:Performed By: #### CBCA, BMP ####[facility] ([id number])[address], [address] [place] [address] 52715Ihzedetzjy (Bld) [Volume fraction]34.1 %Guo01-33CfcTaqaup [facility] Comment on above:Performed By: #### CBCA, BMP ####[facility] ([id number])[address], [address] [place] [address] 02398Iwaykfjtqx (Bld) [Mass/Vol] 11.1 g/dLLow13.0-17.0[facility] HospitalComment on above:Performed By: #### CBCA, BMP ####[facility] ([id number])[address] [address] [place] [address] 01351Ijmuwxlrxcp (Bld) [#/Vol]1.8 10*3/uLNormal1.0-3.5 ProMPremier Health Atrium Medical Center HospitalComment on above:Performed By: #### CBCA, BMP ####[facility] ([id number])[address] [address], [place] [address]Yrygtxclxjz/100 WBC (Bld)9.0 %NormalProPomerene Hospital HospitalComment on above:Performed By: #### CBCA, BMP ####[facility] ([id number])[address] [place] [address] 26434FTG (RBC) [Entitic mass] 29.7 zkNcaiaw87-87BmlQqhfif [facility] HospitalComment on above:Performed By: #### CBCA, BMP ####[facility] ([id number])[address], [address] [place] [address] 13990RADZ (RBC) [Mass/Vol]32.5 g/gESwhoyk40-04IrwJklxou [facility] HospitalComment on above:Performed By: #### CBCA, BMP ####[facility] ([id number])[address], [address] [place] [address] 26069MSL (RBC) [Entitic vol]91 gGZwvrvq48-038TwgPvjfyp [facility] HospitalComment on above: Performed By: #### CBCA, BMP ####[facility] ([id number])[address], [address] [place] [address] 07834Hwilowbtn (Bld) [#/Vol]3.9 10*3/uLHigh0-0.9 [facility] HospitalComment on above:Performed By: #### CBCA, BMP ####[facility] ([id number])[address], [address] [place] [address] 50987Iqflnfwsf/100 WBC (Bld)20.0 %NormalProMedica Terrell HospitalComment on above:Performed By: #### CBCA, BMP ####[facility] ([id number])[address], [address] [place] [address] 03703CRQKMBLAC1.0 %Normal [facility] HospitalComment on above:Performed By: #### CBCA, BMP ####[facility] ([id number])[address], [address] [place] [address] 25007Bmaamsfvser (Bld) [#/Vol]13.8 10*3/uLHigh1.5-6.6[facility] Comment on above:Performed By: #### OG, BMP ####[facility] ([id number])[address], [address] [place] [address] 86074Mcyneygs mean volume (Bld) [Entitic vol]8.8 fLNormal7-12Pro[facility] HospitalComment on above:Performed By: #### CBCTrang, BMP ####[facility] ([id number])[address] [place] [address] 22898Heglnoumh (Bld) [#/Vol]427 10*3/cXCiokub650-653 [facility] HospitalComment on above:Performed By: #### CBCTrang, BMP ####[facility] ([id number])[address], [address] [place] [address] 72736WBC COUNT3.73 X10E12/LLow4.10-5.70Pro[facility] HospitalComment on above:Performed By: #### CBCTrang, BMP ####[facility] ([id number])[address] [place] [address] 81151XUU morphology finding Nom (Bld)NORMALNormalProMedica Terrell HospitalComment on above:Performed By: #### CBCTrang, BMP ####[facility] ([id number])[address] [place] [address] 24618GCP FKGOCAIMTB63.0 %NormalProMedica Terrell HospitalComment on above:Performed By: #### CBCTrang, BMP ####[facility] ([id number])[address], [address] [place] [address] 64961PJU (Bld) [#/Vol]19.7 10*3/uLHigh4.0-11.0ProMedica [facility] HospitalComment on above:Performed By: #### CBCA, BMP ####[facility] ([id number])[address], [place] [address]Nrbozff unfractionated Chromogenic method Qn (PPP)on 67-89-2584BEUN XA UFH0.14 IU/mLLow0.30-0.70Pro[facility] HospitalComment on above:Result Comment: Optimal time for testing is 6 hrs post dosageThis test is specific for monitoring patientson UFH, and is not recommended for use withother Anti-Xa medications.Performed By: #### 3274-8 ####[facility] ([id number])[address], [place] [address]OSCG XA UFH0.07 IU/mLLow 0.30-0.70Pro[facility] HospitalComment on above:Result Comment: Optimal time for testing is 6 hrs post dosageThis test is specific for monitoring patientson UFH, and is not recommended for use withother Anti-Xa medications.Performed By: #### 3274-8 ####[facility] ([id number])[address], [place] [address]CCVHL METABOLIC PANLon 96-94-8181Nwivf gap [Moles/Vol]5 mmol/LNormal5-15[facility] HospitalComment on above:Performed By: #### OG, 75910-6, BMP, 05261-2 ####[facility] ([id number])[address] [place], [place] [address]Qsrdjdj [Mass/Vol]8.4 mg/dLLow8.5-10.5 [facility] HospitalComment on above:Performed By: #### OG, 90801-5, BMP, ####[facility] ([id number])[address] [place], [place] [address]Batppnaw [Moles/Vol]93 mmol/FCwf19-524XzmPrsafh [place] HospitalComment on above:Performed By: #### OG, 54867-1, BMP, ####[facility] ([id number])[address] [place], [place] [address]PL2 [Moles/Vol]35 mmol/KYsbd28-17RkgDcethj [place] HospitalComment on above:Performed By: #### OG, 80535-7, ISELA, ####[facility] ([id number])[address] [place], [place] [address]Ilebrvzedt [Mass/Vol]0.40 mg/dLLow0.60-1.30ProCincinnati Shriners HospitalComment on above:Result Comment: METHOD TRACEABLE TO IDMS STANDARDPerformed By: #### OG, 49361-1, ISELA, ####[facility] ([id number])[address] [address], [place] [address]nIYO (CKD-EPI) NON-RACE DEPENDENT>90Normal>59ProCincinnati Shriners HospitalComment on above:Result Comment: Reported eGFR is based on theCKD-EPI 2020 equation that doesnot use a race coefficient.Performed By: #### OG, 71191-7, ISELA, ####[facility] ([id number])[address] [address], [place] [address]Esbnkvy [Mass/Vol]86 mg/kWDhiwsf13-50LshUvwtfr [place] HospitalComment on above:Performed By: #### OG, 60615-6, ISELA, ####[facility] ([id number])[address] [address] [place] [address]Ivnxodnye [Moles/Vol]4.6 mmol/LNormal3.5-5.0[facility] Comment on above:Performed By: #### OG, 30346-7, ISELA, ####[facility] ([id number])[address], [address], [place] [address] Sodium [Moles/Vol]133 mmol/WMbi287-554NztNqbvva [place] HospitalComment on above: Performed By: #### OG, 78735-4, BMP, ####[facility] ([id number])[address], [address] [place] [address]Yegy nitrogen [Mass/Vol]8 mg/dLNormal5-27[facility] HospitalComment on above:Performed By: #### OG, 37695-7, BMP, ####[facility] ([id number])[address], [address] [place] [address]URZ AND AUTO DIFFon 85-85-0872ADAFDKAD BASOPHIL0.1 X10E9/LNormal0.0-0.2[facility] HospitalComment on above: Performed By: #### OG, 26698-2, BMP, ####[facility] ([id number])[address], [address] [place] [address]XMWSOPGR DERZMVMMXG79.8 X10E9/LHigh1.5-6.6[facility] HospitalComment on above:Performed By: #### OG, 09489-3, BMP, ####[facility] ([id number])[address], [address] [place] [address]Dxpvpyljg/100 WBC (Bld)0.4 %NormalProPomerene Hospital HospitalComment on above:Performed By: #### OG, 53958-1, BMP, ####[facility] ([id number])[address] [address]Mlhwmgnmlcb (Bld) [#/Vol]0.0 10*3/uLNormal0.0-0.4[facility] Comment on above:Performed By: #### OG, 64890-7, BMP, ####[facility] ([id number])[address], [address], [place] [address] Eosinophils/100 WBC (Bld)0.3 %NormalProMedica Hilger HospitalComment on above: Performed By: #### CBCTrang, 19116-0, BMP, ####[facility] ([id number])[address], [address], [place] [address]Fuzxwqbphcj distribution width (RBC) [Ratio]17.4 %High11.5-15.0[facility] HospitalComment on above: Performed By: #### OG, 89803-4, BMP, ####[facility] ([id number])[address], [address] [place] [address]Naoxhhxvcv (Bld) [Volume fraction]32.9 %Avg49-39JtaOztinr [facility]rell HospitalComment on above:Performed By: #### CBCTrang, 51829-6, BMP, ####[facility] ([id number])[address], [address] [place] [address]Tzutdiinfs (Bld) [Mass/Vol] 11.0 g/dLLow13.0-17.0[facility] HospitalComment on above:Performed By: #### CBCTrang, 71441-6, BMP, ####[facility] ([id number])[address] [address] [place] [address]Tfsgzxyoezt (Bld) [#/Vol] 2.7 10*3/uLNormal1.0-3.5[facility] HospitalComment on above:Performed By: #### CBCA, 58575-6, BMP, ####[facility] ([id number])[address] [address], [place] [address]Yvkorsxjnpo/100 WBC (Bld) 14.6 %NormalProMedica Terrell HospitalComment on above:Performed By: #### CBCA, 01980-5, BMP, ####[facility] ([id number])[address], [address] [place] [address]XFY (RBC) [Entitic mass]29.9 aaUrtggv41-23 [facility] HospitalComment on above:Performed By: #### CBCA, 92368-1, BMP, ####[facility] ([id number])[address], [address] [place] [address]CFDJ (RBC) [Mass/Vol]33.3 g/xCQvfnyi76-86TikBwjfhu [facility] HospitalComment on above:Performed By: #### CBCA, 89154-6, BMP, ####[facility] ([id number])[address], [address] [place] [address]RBG (RBC) [Entitic vol]90 oYGoohfa82-598DmbObipcq [facility] HospitalComment on above:Performed By: #### CBCA, 22766-6, BMP, ####[facility] ([id number])[address], [address] [place] [address]Hzwmeqked (Bld) [#/Vol]2.9 10*3/uLHigh0-0.9[facility] HospitalComment on above:Performed By: #### CBCA, 30810-6, BMP, ####[facility] [facility] ([id number])[address], [address] [place] [address] 67623Ydzttxmsy/100 WBC (Bld)15.8 %NormalProMedica Terrell HospitalComment on above:Performed By: #### CBCA, 83802-1, BMP, 96193-5 ####[facility] ([id number])[address], [address] [place] [address] 59448Csgeeerfytu/100 WBC (Bld)68.9 %NormalProMedica Terrell HospitalComment on above:Performed By: #### CBCTrang, 23896-1, BMP, ####[facility] ([id number])[address], [address] [place] [address] 25164PNWMHAWXF5+AbnormalNONEProMedica Terrell HospitalComment on above:Performed By: #### CBCTrang, 07159-7, BMP, ####[facility] ([id number])[address], [address] [place] [address] 79434Vxirrzob mean volume (Bld) [Entitic vol]8.8 fLNormal7-12ProMedica Terrell HospitalComment on above:Performed By: #### OG, 34594-3, BMP, ####[facility] ([id number])[address], [address] [place] [address] 07861Egmmvjqbt (Bld) [#/Vol]401 10*3/dXKmxlic980-204DhtYykpgi Terrell HospitalComment on above:Performed By: #### CBCTrang, 85237-6, BMP, ####[facility] ([id number])[address], [address] [place] [address] 91736YNO COUNT3.66 X10E12/LLow4.10-5.70ProMedica Terrell HospitalComment on above:Performed By: #### CBCA, 14761-1, BMP, ####[facility] ([id number])[address], [address] [place] [address] 35181SXX (Bld) [#/Vol]18.6 10*3/uLHigh4.0-11.0ProMedica Terrell HospitalComment on above:Performed By: #### CBCA, 92555-4, BMP, ####[facility] ([id number])[address], [address] [place] [address] 52725KWJPQWYVADai 83-68-5410Gssicobbqc (Bld) [Mass/Vol]11.0 g/dLLow13.0-17.0ProPomerene Hospital HospitalComment on above:Performed By: #### 718-7, PLTCT, PINR ####[facility] ([id number])[address], [address] [place] [address] 41545 Heparin unfractionated Chromogenic method Qn (PPP)on 04-60-2803PGRT XA UFH0.33 IU/mLNormal0.30-0.70ProPomerene Hospital HospitalComment on above:Result Comment: Optimal time for testing is 6 hrs post dosageThis test is specific for monitoring patientson UFH, and is not recommended for use withother Anti-Xa medications.Performed By: #### 3274-8, 54255-3 ####[facility] ([id number])[address] [address] [place] [address] 30166CLUEALRQVnr 07-14-2023 Magnesium [Mass/Vol]2.0 mg/dLNormal1.8-2.6[facility] HospitalComment on above:Performed By: #### 3274-8, 56496-4 ####[facility] ([id number])[address] [address]Ebizregrr [Mass/Vol]1.6 mg/dLLow1.8-2.6ProPomerene Hospital HospitalComment on above:Performed By: #### CBCA, 80937-3, BMP, 83216-6 ####[facility] ([id number])[address] 84896QRJCHQMF COUNT AND MPVon 69-80-3988Tldwozyt mean volume (Bld) [Entitic vol]8.7 fLNormal7-12ProMedica Hilger HospitalComment on above:Performed By: #### 718-7, PLTCT, PINR ####[facility] ([id number])[address], [address], [place] [address]Pcmfuvuyn (Bld) [#/Vol]418 10*3/lDLfygkd643-294YltOjdfgd [place] HospitalComment on above:Performed By: #### 718-7, PLTCT, PINR ####[facility] ([id number])[address], [address], [place] [address]FEYHLIU AND INRon 18-48-7184QSA Coag (PPP) [Relative time]1.4 {INR}High0.8-1.1PNationwide Children's HospitalComment on above:Performed By: #### 718-7, PLTCT, PINR ####[facility] ([id number])[address], [address] [place] [address] 04967IE Coag (PPP) [Time]15.9 sHigh9.8-13.2 [facility] SystemComment on above:Performed By: #### 718-7, PLTCT, PINR ####[facility] ([id number])[address], [address] [place] [address] 98103YGZTVRPHULQ TB GOLDon 69-08-4062NCLSOQC MINUS NIL1.58 IU/mLNormal>=0.50 [facility] Health SystemNIL RESULT0.11 IU/mLNormal<=8.00[facility] Health SystemTB INTERPRETATIONSee belowNormalProCincinnati Shriners HospitalComment on above:Result Comment: NOTEInfection with M. tuberculosis complex is unlikely. If latenttuberculosis infection is highly suspected, a negative result doesnot rule out the infection. Specimens from immunocompromised patientsand those <5 years of age may show false negative results. In case ofa contact investigation, please repeat 8-12 weeks after a knownexposure. Test Performed By: [facility] [employer] [address] [place] [address] Diver Helper: Demond Jeff III, M.D. [facility] #[id number] RESULTNegativeNormal [facility]Medica [facility]rell HospitalTB1 AG MINUS NIL0.00 IU/mLNormal<0.35Pro[facility]ica [facility] HospitalTB2 AG MINUS NIL0.00 IU/mLNormal<0.35ProMedica Terrell HospitalaPTT Coag (PPP) [Time]on 47-44-4053sEHT Coag (Bld) [Time]46 xTlwn87-84YubCrkjqq Terrell HospitalComment on above:Performed By: #### OG, 31328-7, ISELA, ####[facility] ([id number])[address], [address], [place] [address]UBSXT METABOLIC PANLon 08-28-9208Uovht gap [Moles/Vol]6 mmol/LNormal5-15 [facility] HospitalComment on above:Performed By: #### ISELA FOLEY, ####[facility] ([id number])[address], [address], [place] [address]Kwolmag [Mass/Vol]7.9 mg/dLLow8.5-10.5ProMedica Hilger HospitalComment on above:Performed By: #### ISELA FOLEY, ####[facility] ([id number])[address], [address], [place] [address]Lqjbyiwo [Moles/Vol]93 mmol/QLnw32-574EpvLssjis [facility]rell HospitalComment on above:Performed By: #### ISELA FOLEY, ####[facility] ([id number])[address], [address], [place] [address]AN8 [Moles/Vol]32 mmol/FYjrwux33-12KhtXgfkpl [facility]rell HospitalComment on above:Performed By: #### ISELA FOLEY, ####[facility] ([id number])[address], [address], [place] [address] Creatinine [Mass/Vol]0.33 mg/dLLow0.60-1.30Pro[facility] HospitalComment on above:Result Comment: METHOD TRACEABLE TO IDMS STANDARDPerformed By: #### ISELA FOLEY, ####[facility] ([id number])[address], [address] [place] [address] 64094eWLU (CKD-EPI) NON-RACE DEPENDENT>90Normal>59ProMedica Hilger HospitalComment on above:Result Comment: Reported eGFR is based on theCKD-EPI 2020 equation that doesnot use a race coefficient.Performed By: #### ISELA FOLEY, ####[facility] ([id number])[address] [address] [place] [address] 76350Dhifciq [Mass/Vol]97 mg/zINqrruc59-05BthPmfrmi [facility]ger HospitalComment on above:Performed By: #### ISEAL FOLEY, ####[facility] ([id number])[address] [address] [place] [address] 70327 Potassium [Moles/Vol]4.1 mmol/LNormal3.5-5.0Pro[facility] HospitalComment on above:Performed By: #### ISELA FOLEY, ####[facility] ([id number])[address] [address] [place] [address] 61383Cllrac [Moles/Vol]131 mmol/SAfc678-851BmrRfiepj [facility]rell HospitalComment on above:Performed By: #### ISELA FOLEY, ####[facility] ([id number])[address] [address] [place] [address] 39185Wxbs nitrogen [Mass/Vol]8 mg/dLNormal5-27Pro[facility] HospitalComment on above:Performed By: #### ISELA FOLEY, ####[facility] ([id number])[address], [address] [place] [address] 74276VCL AND AUTO DIFFon 83-82-2293VZICKXTW BASOPHIL0.1 X10E9/LNormal0.0-0.2Pro[facility] Hil[facility] HospitalComment on above:Performed By: #### ISELA FOLEY, ####[facility] ([id number])[address], [address] [place] [address] 21308 ABSOLUTE EUXRHALHKC42.5 X10E9/LHigh1.5-6.6Pro[facility] HospitalComment on above:Performed By: #### ISELA FOLEY, ####[facility] ([id number])[address], [address] [place] [address] 69995Gyrzzifrm/100 WBC (Bld)0.4 %NormalProBlanchard Valley Health System Blanchard Valley Hospitalca Hilger HospitalComment on above:Performed By: #### ISELA FOLEY, ####[facility] ([id number])[address], [address] [place] [address] 68050Pppnekvtmcb (Bld) [#/Vol]0.1 10*3/uLNormal0.0-0.4ProBlanchard Valley Health System [facility] Hospitalca Hilger HospitalComment on above:Performed By: #### ISELA FOLEY, ####[facility] ([id number])[address] [address] [place] [address] 98203 Eosinophils/100 WBC (Bld)0.4 %NormalProBlanchard Valley Health System [facility] Hospitalca Hil[facility] HospitalComment on above: Performed By: #### ISELA FOLEY, ####[facility] ([id number])[address] [address] [place] [address] 95638Zsdplyisuoi distribution width (RBC) [Ratio]17.5 %High11.5-15.0ProBlanchard Valley Health System [facility] Hospitalca Hilger HospitalComment on above: Performed By: #### ISELA FOLEY, ####[facility] ([id number])[address], [address] [place] [address] 70262Nzrnckgtch (Bld) [Volume fraction]32.0 %Bkg89-24HqfEjifst [facility] HospitalComment on above:Performed By: #### CBCTrang BMP, ####[facility] ([id number])[address], [address] [place] [address] 77336Raryjaivbj (Bld) [Mass/Vol]10.5 g/dLLow 13.0-17.0Pro[facility] HospitalComment on above:Performed By: #### CBCTrang, BMP, ####[facility] ([id number])[address], [address] [place] [address] 27128Ukaskuchrgz (Bld) [#/Vol]2.2 10*3/uLNormal1.0-3.5Pro[facility] HospitalComment on above:Performed By: #### CBCISELA Costello, ####[facility] ([id number])[address], [address] [place] [address] 35397 Lymphocytes/100 WBC (Bld)11.4 %NormalProMedica Hilger HospitalComment on above: Performed By: #### CBCTrang, BMP, ####[facility] ([id number])[address], [address] [place] [address] 99285SIP (RBC) [Entitic mass] 29.7 tpHwrdju59-81VbwFdtdld [facility] HospitalComment on above:Performed By: #### CBCA, BMP, ####[facility] ([id number])[address], [address] [place] [address] 98062MESW (RBC) [Mass/Vol]32.9 g/gFSbvuel63-99MhmTmmfen [facility] HospitalComment on above:Performed By: #### CBCA, BMP, ####[facility] ([id number])[address], [address] [place] [address] 70957PZB (RBC) [Entitic vol]90 tPUuxbut31-585JkvLrootk [facility] HospitalComment on above: Performed By: #### CBCISELA Costello, ####[facility] ([id number])[address], [address] [place] [address] 93174Brpthwftz (Bld) [#/Vol]3.3 10*3/uLHigh0-0.9Pro[facility] HospitalComment on above:Performed By: #### CBCTrang, BMP, ####[facility] ([id number])[address], [address] [place] [address] 85346Siqplsbwb/100 WBC (Bld)17.3 %NormalProMedica Terrell HospitalComment on above:Performed By: #### CBCISELA Costello, ####[facility] ([id number])[address], [address] [place] [address] 17234 Neutrophils/100 WBC (Bld)70.5 %NormalProMedica Terrell HospitalComment on above: Performed By: #### OG, ISELA, ####[facility] ([id number])[address], [address] [place] [address] 35670Tgttmqlt mean volume (Bld) [Entitic vol]8.7 fLNormal7-12[facility] HospitalComment on above:Performed By: #### CBCTrang, BMP, ####[facility] ([id number])[address], [address] [place] [address] 77764Hawlftoaq (Bld) [#/Vol]379 10*3/uLNormal 150-450Pro[facility] HospitalComment on above:Performed By: #### CBCA, BMP, ####[facility] ([id number])[address], [address] [place] [address] 25280JRG COUNT3.55 X10E12/LLow4.10-5.70[facility] Comment on above:Performed By: #### ISELA FOLEY, 08552-2 ####[facility] ([id number])[address], [address] [place] [address] 43610CAF (Bld) [#/Vol]19.2 10*3/uLHigh4.0-11.0[facility] Health SystemComment on above: Performed By: #### ISELA FOLEY, ####[facility] ([id number])[address], [address] [place] [address] 96739JQU 12-Leadon 44-93-5277XFI 12-[id number]#1.00TIFFNormSelect Medical Cleveland Clinic Rehabilitation Hospital, AvonMAGNESIUMon 89-89-7263Ylokmdsgc [Mass/Vol]1.8 mg/dLNormal1.8-2.6 [facility] SystemComment on above:Performed By: #### ISELA FOLEY, 59320-0 ####[facility] ([id number])[address] [address]UWC - [place] Reporton 57-78-3984YUA - [place] Report [id number]#1.00TIFFNoLakeHealth TriPoint Medical CenterRAD - MISCon 53-91-5289OEX - MISC [id number]#1.00TIFFNoLakeHealth TriPoint Medical CenteraPTT Coag (PPP) [Time]on 00-85-7262aGMG Coag (Bld) [Time]70 tZrhg89-18 [facility] SystemComment on above:Performed By: #### 83405-9 ####[facility] ([id number])[address] [facility] [address] [place] [address] 66923hHHB Coag (Bld) [Time]71 yIhip99-91XflGmetkj [facility] HospitalComment on above: Performed By: #### 26359-2 ####[facility] ([id number])[address], [address] [place], [place] [address]DMATP METABOLIC PANLon 71-98-3506Ngxkm gap [Moles/Vol]7 mmol/LNormal5-15[facility] HospitalComment on above:Performed By: #### CBCTrang, BMP, , 73730-0 ####[facility] ([id number])[address], [address] [place], [place] [address]Rjufdhy [Mass/Vol]8.4 mg/dL Low8.5-10.5[facility] HospitalComment on above:Performed By: #### OG, BMP, , 96703-6 ####[facility] ([id number])[address] [place] [address]Wkxilmtg [Moles/Vol]91 mmol/ZYft29-622ErqAzyoqk [facility] HospitalComment on above:Performed By: #### OG, BMP, , 51601-7 ####[facility] ([id number])[address], [address] [place] [place] [address]NQ7 [Moles/Vol]36 mmol/QFhgh94-02ZgkOidrzu [facility] HospitalComment on above:Performed By: #### CBCA, BMP, , 65505-5 ####[facility] ([id number])[address], [address] [place], [place] [address]Cpihanuimm [Mass/Vol]0.46 mg/dLLow0.60-1.30[facility] HospitalComment on above:Result Comment: METHOD TRACEABLE TO IDMS STANDARDPerformed By: #### OG, BMP, , 06412-0 ####[facility] ([id number])[address] [address], [place] [address]uVMD (CKD-EPI) NON-RACE DEPENDENT>90Normal>59ProCincinnati Shriners HospitalComment on above:Result Comment: Reported eGFR is based on theCKD-EPI 2020 equation that doesnot use a race coefficient.Performed By: #### ISELA FOLEY, , 94512-2 ####[facility] ([id number])[address] [address] [place] [address] 47124Dpjqxas [Mass/Vol]105 mg/lFXbxc52-00PjzFwsxtcCincinnati Shriners HospitalComment on above:Performed By: #### ISELA FOLEY, , 54756-1 ####[facility] ([id number])[address] [address]Asogclmpy [Moles/Vol]4.5 mmol/LNormal3.5-5.0[facility] Comment on above:Performed By: #### ISELA FOLEY, , 84646-8 ####[facility] ([id number])[address] [address] [place] [address] 76946 Sodium [Moles/Vol]134 mmol/TCahxwi977-889JinWlshat [place] HospitalComment on above:Performed By: #### ISELA FOLEY, , 99361-1 ####[facility] ([id number])[address] [address] [place] [address] 01479Kusn nitrogen [Mass/Vol]11 mg/dLNormal5-27ProCincinnati Shriners HospitalComment on above:Performed By: #### ISELA FOLEY, , 67011-7 ####[facility] ([id number])[address] [address] [place] [address] 78061KIL AND AUTO DIFFon 30-68-7811IVEWRFKL BASOPHIL0.1 X10E9/LNormal0.0-0.2[facility] Comment on above:Performed By: #### CBCA, BMP, , 40383-3 ####[facility] ([id number])[address] [place] [address] ABSOLUTE UHFYQEBRJE33.3 X10E9/LHigh1.5-6.6ProBlanchard Valley Health System [facility] Hospitalca [facility] HospitalComment on above:Performed By: #### CBCA, BMP, , ####[facility] ([id number])[address], [place] [address]Xsnpyjdvu/100 WBC (Bld)0.6 %NormalProPomerene Hospital HospitalComment on above:Performed By: #### CBCA, BMP, , 68578-9 ####[facility] ([id number])[address], [address], [place] [address]Nhmcxuqjstp (Bld) [#/Vol]0.0 10*3/uLNormal 0.0-0.4ProP[facility] Hospital HospitalComment on above:Performed By: #### CBCTrang, BMP, , 93693-9 ####[facility] ([id number])[address] [address], [place] [address]Efvrdsryavm/100 WBC (Bld)0.1 %NormalProPomerene Hospital HospitalComment on above:Performed By: #### CBCA, BMP, , 28108-5 ####[facility] ([id number])[address], [place] [address]Cufbxhintwl distribution width (RBC) [Ratio]17.6 %High11.5-15.0ProP[facility] Hospital HospitalComment on above:Performed By: #### CBCA, BMP, , 72560-1 ####[facility] ([id number])[address], [address] [place], [place] [address]Xemyklghcf (Bld) [Volume fraction]34.8 %Rio82-17SunRjdevd [facility] Comment on above:Performed By: #### CBCTrang, BMP, , 19263-1 ####[facility] ([id number])[address], [place] [address] Hemoglobin (Bld) [Mass/Vol]11.5 g/dLLow13.0-17.0ProBlanchard Valley Health System [facility] Hospitalca [facility] HospitalComment on above:Performed By: #### CBCA, BMP, , ####[facility] ([id number])[address], [address] [place] [address] 98306Vfqtetkkrhg (Bld) [#/Vol]2.4 10*3/uLNormal1.0-3.5Pro[facility] HospitalComment on above: Performed By: #### CBCA, BMP, , ####[facility] ([id number])[address], [place] [address]Wknuvjnnbfd/100 WBC (Bld) 11.2 %NormalProCincinnati Shriners HospitalComment on above:Performed By: #### CBCA, BMP, , 61567-7 ####[facility] ([id number])[address] [facility] [address], [place] [address]WEX (RBC) [Entitic mass]30.0 vqMlaoph55-43 [facility] HospitalComment on above:Performed By: #### CBCA, BMP, , ####[facility] ([id number])[address], [address], [place] [address]OKCP (RBC) [Mass/Vol]33.1 g/sUDsytaw11-77WzpBletlh [facility] HospitalComment on above:Performed By: #### CBCA, BMP, , ####[facility] ([id number])[address], [address] [place] [address] 24836GPJ (RBC) [Entitic vol]91 pXOxjyrg39-518GxaPvtyfk [facility] HospitalComment on above:Performed By: #### CBCA, BMP, , 56258-9 ####[facility] ([id number])[address], [address] [place] [address] 89812Gswjmawyx (Bld) [#/Vol]3.7 10*3/uLHigh0-0.9Pro[facility]ica [facility] HospitalComment on above:Performed By: #### CBCA, BMP, , 49382-2 ####[facility] ([id number])[address], [address] [place] [address] 76831Tyngbyhby/100 WBC (Bld)17.3 %NormalProMedica Terrell HospitalComment on above:Performed By: #### CBCA, BMP, , 25040-7 ####[facility] ([id number])[address], [address] [place] [address] 36659Pakjamadllt/100 WBC (Bld)70.8 %NormalProBlanchard Valley Health System [facility] Hospitalca Terrell HospitalComment on above:Performed By: #### CBCA, BMP, , 56374-3 ####[facility] ([id number])[address], [address] [place] [address] 85178Ekktozer mean volume (Bld) [Entitic vol]9.1 fLNormal7-12Pro[facility] HospitalComment on above:Performed By: #### CBCA, BMP, , 87824-3 ####[facility] ([id number])[address], [address] [place] [address] 18868Duqpqhbmq (Bld) [#/Vol]389 10*3/wRWyfdky395-789MvuNophkc [facility] Comment on above:Performed By: #### ISELA FOLEY, , 36444-0 ####[facility] ([id number])[address], [address] [place] [address] 47294VJZ COUNT3.84 X10E12/LLow4.10-5.70ProMedica Hilger HospitalComment on above: Performed By: #### ISELA FOLEY, , 01267-6 ####[facility] ([id number])[address], [address] [place] [address] 18294EQE (Bld) [#/Vol]21.7 10*3/uLHigh4.0-11.0[facility] Hilger HospitalComment on above:Performed By: #### ISELA FOLEY, , [address]-9 ####[facility] ([id number])[address] [address] [place] [address] 67495QNEDJFFLPvg 99-41-7787Mzhawfbak [Mass/Vol] 1.9 mg/dLNormal1.8-2.6[facility] Hilger HospitalComment on above:Performed By: #### ISELA FOLEY, , [address]301-7 ####[facility] ([id number])[address] [address] [place] [address] 87499yXSW Coag (PPP) [Time]on 87-16-0914fYIM Coag (Bld) [Time]96 mLebj28-95NwkNdvfmo [facility] HospitalComment on above:Performed By: #### 19778-9 ####[facility] ([id number])[address] [address] [place] [address] 64734jAJX Coag (Bld) [Time]62 s Gvug47-45SvcGqqgtg [facility] HospitalComment on above:Performed By: #### 35057-6 ####[facility] ([id number])[address] [address] [place] [address] 06935qTYW Coag (Bld) [Time]86 lOucu25-90EisRpjenn [facility] HospitalComment on above:Performed By: #### CBCTrang, BMP, , 69177-8 ####[facility] ([id number])[address], [address] [place], [place] [address]ODTOW METABOLIC PANLon 01-85-2359Dcvno gap [Moles/Vol]5 mmol/LNormal5-15[facility]rell HospitalComment on above:Performed By: #### CBCA, BMP, , PINR, 55756-2 ####[facility] ([id number])[address], [address] [place], [place] [address]Qnyyrfo [Mass/Vol]8.1 mg/dLLow8.5-10.5[facility] Terrell HospitalComment on above:Performed By: #### CBCTrang, BMP, , PINR, 71922-3 ####[facility] ([id number])[address], [address] [place] [address]Kyxdvzgt [Moles/Vol]90 mmol/WZfc03-463BjpEazytk [facility] HospitalComment on above:Performed By: #### CBCA, BMP, , PINR, 50615-1 ####[facility] ([id number])[address], [address] [place] [address]FQ8 [Moles/Vol]35 mmol/L Egyb01-32ZxgXgxgks [facility] HospitalComment on above:Performed By: #### CBCA, BMP, , PINR, 88457-9 ####[facility] ([id number])[address], [address] [place] [place] [address]Juvoqmonxf [Mass/Vol]0.36 mg/dLLow0.60-1.30 [facility] Terrell HospitalComment on above:Result Comment: METHOD TRACEABLE TO IDMS STANDARDPerformed By: #### CBCA, BMP, 35268-4, PINR, 68414-4 ####[facility] ([id number])[address] [address], [place] [address]hBSH (CKD-EPI) NON-RACE DEPENDENT>90Normal>59ProCincinnati Shriners HospitalComment on above:Result Comment: Reported eGFR is based on theCKD-EPI 2020 equation that doesnot use a race coefficient.Performed By: #### OG, ISELA, , PINR, 89523-9 ####[facility] ([id number])[address] [address]Dxhzbsa [Mass/Vol]97 mg/fAIsxgsp22-59MgbEmpdlr [facility] HospitalComment on above:Performed By: #### ISELA FOLEY, , PINR, 67639-8 ####[facility] ([id number])[address] [address] [place] [address] 132[address]Dysfupmap [Moles/Vol]3.7 mmol/LNormal3.5-5.0[facility] Comment on above:Performed By: #### OG, ISELA, , PINR, 90979-9 ####[facility] ([id number])[address] [address] Sodium [Moles/Vol]130 mmol/VKqr116-175JetXbrmwy [place] HospitalComment on above: Performed By: #### CBCTrang, BMP, , PINR, 58911-8 ####[facility] ([id number])[address] [address] [place] [address]Ivmo nitrogen [Mass/Vol]13 mg/dLNormal5-27ProCincinnati Shriners HospitalComment on above:Performed By: #### OG, ISELA, 53592-3, PINR, 75936-0 ####[facility] ([id number])[address] [address] [place] [address] 89147VBY AND AUTO DIFFon 81-11-0654Iteq form neutrophils/100 WBC (Bld)1.0 %NormalMemorial Health SystemComment on above:Performed By: #### CBCA, BMP, , PINR, 35217-9 ####[facility] ([id number])[address] [address] [place] [address] 69987Qtgovxsmrxz (Bld) [#/Vol]0.2 10*3/uLNormal0.0-0.4[facility] Comment on above:Performed By: #### CBCA, BMP, , PINR, 52442-5 ####[facility] ([id number])[address] [address] [place] [address] 38311 Eosinophils/100 WBC (Bld)1.0 %NormalProPomerene Hospital HospitalComment on above: Performed By: #### CBCA, BMP, , PINR, 63687-4 ####[facility] ([id number])[address] [address]Khzbdlajkhn distribution width (RBC) [Ratio]17.5 %High11.5-15.0[facility] Comment on above:Performed By: #### CBCA, BMP, , PINR, 56518-1 ####[facility] ([id number])[address] [address] Hematocrit (Bld) [Volume fraction]33.0 %Oaw26-39HqwMmyrpoCincinnati Shriners HospitalComment on above:Performed By: #### CBCA, BMP, , PINR, 05892-2 ####[facility] ([id number])[address] [address] [place] [address] 26531 Hemoglobin (Bld) [Mass/Vol]10.8 g/dLLow13.0-17.0ProMedica Terrell HospitalComment on above:Performed By: #### CBCA, BMP, 51278-7, PINR, 19160-2 ####[facility] ([id number])[address], [place] [address] LYMPHOCYTE, ATYPICAL2.0 %NormalProMedica Terrell HospitalComment on above: Performed By: #### CBCA, BMP, 67937-3, PINR, 57965-1 ####[facility] ([id number])[address], [place] [address]Hcecrtnrynp (Bld) [#/Vol]1.0 10*3/uLNormal1.0-3.5ProMedica Terrell HospitalComment on above: Performed By: #### CBCA, BMP, , PINR, 68078-6 ####[facility] ([id number])[address], [address], [place] [address]Ymvdmgaxhhw/100 WBC (Bld)3.0 %NormalProMedica Terrell HospitalComment on above:Performed By: #### CBCA, BMP, , PINR, 48930-9 ####[facility] ([id number])[address], [address] [place] [address] 73711VYB (RBC) [Entitic mass] 29.7 vrPihsrt23-19KrsIrxbox Terrell HospitalComment on above:Performed By: #### CBCA, BMP, 23841-2, PINR, 02811-6 ####[facility] ([id number])[address], [address], [place] [address]JZTZ (RBC) [Mass/Vol]32.7 g/nZPfxsxc90-88FjgIzizco Terrell HospitalComment on above:Performed By: #### CBCA, BMP, 04080-0, PINR, 09336-6 ####[facility] ([id number])[address], [address], [place] [address]LWT (RBC) [Entitic vol]91 oJAduuvl68-796YwgGaszmn Terrell HospitalComment on above:Performed By: #### CBCA, BMP, 95392-7, PINR, 71661-0 ####[facility] ([id number])[address], [address], [place] [address]Wnuiytwxkifcwv/100 WBC (Bld)2.0 %Normal [facility] Terrell HospitalComment on above:Performed By: #### CBCA, BMP, 95024-7, PINR, 80160-6 ####[facility] ([id number])[address], [address] [place] [address] 527[address]Trgaqznbn (Bld) [#/Vol]1.9 10*3/uLHigh0-0.9Pro[facility]ica Terrell HospitalComment on above:Performed By: #### CBCA, BMP, , PINR, 23244-5 ####[facility] ([id number])[address], [address], [place] [address]Fovwzpxid/100 WBC (Bld)9.0 %NormalProMedica Terrell HospitalComment on above:Performed By: #### CBCA, BMP, 23717-4, PINR, 32503-8 ####[facility] ([id number])[address], [address], [place] [address]JGKSXTNIC7.0 % NormalProMedica Terrell HospitalComment on above:Performed By: #### CBCA, BMP, 51842-5, PINR, 87034-0 ####[facility] ([id number])[address], [address] [place] [address] 06825Hfjwytxswor (Bld) [#/Vol]17.1 10*3/uLHigh 1.5-6.6Pro[facility] Terrell HospitalComment on above:Performed By: #### CBCA, BMP, 09024-1, PINR, 24434-9 ####[facility] ([id number])[address], [address], [place] [address]Abrrmzgr mean volume (Bld) [Entitic vol]9.1 fLNormal7-12Pro[facility] HospitalComment on above:Performed By: #### CBCA, BMP, , PINR, 33521-4 ####[facility] ([id number])[address], [address], [place] [address]Thedeblpt (Bld) [#/Vol]373 10*3/uLNormal 150-450ProMedica Terrell HospitalComment on above:Performed By: #### CBCA, BMP, , PINR, 14513-2 ####[facility] ([id number])[address], [address], [place] [address]HLXDJETJUKRVK3+AbnormalNONEProMedica Terrell HospitalComment on above:Performed By: #### CBCA, BMP, , PINR, 73325-0 ####[facility] ([id number])[address], [address] [place] [address] 13206EEI COUNT3.64 X10E12/LLow4.10-5.70Pro[facility]rell HospitalComment on above:Performed By: #### CBCA, BMP, , PINR, 95170-1 ####[facility] ([id number])[address], [address], [place] [address]CLG NEUTROPHIL 80.0 %NormalProMedica Terrell HospitalComment on above:Performed By: #### CBCA, BMP, , PINR, 36972-4 ####[facility] ([id number])[address], [address], [place] [address]AUBGXPPALZI3+AbnormalNONEProMedica Terrell HospitalComment on above:Performed By: #### CBCA, BMP, , PINR, 67090-1 ####[facility] ([id number])[address], [address] [place], [place] [address]ZYO (Bld) [#/Vol]21.0 10*3/uLHigh4.0-11.0Pro[facility] HospitalComment on above:Performed By: #### ISELA FOLEY, , PINR, 31740-7 ####[facility] ([id number])[address], [address] [place] [address] MAGNESIUMon 17-02-4143Hqfyagkpd [Mass/Vol]1.9 mg/dLNormal1.8-2.6Pro[facility]rell HospitalComment on above:Performed By: #### 2823-3, , 21370-8 ####[facility] ([id number])[address], [address] [place] [address] Magnesium [Mass/Vol]1.9 mg/dLNormal1.8-2.6[facility] HospitalComment on above:Performed By: #### ISELA FOLEY, , PINR, 84031-9 ####[facility] ([id number])[address], [address], [place] [address]YPRUDSUNXda 64-86-8499Kqzzccaip [Moles/Vol]4.2 mmol/LNormal3.5-5.0[facility] Comment on above:Performed By: #### 2823-3, , 78677-9 ####[facility] ([id number])[address], [address] [place] [place] [place] [address]Drthqcwwj [Moles/Vol]4.3 mmol/LNormal3.5-5.0Pro[facility]rell HospitalComment on above: Performed By: #### 93490-9, 3-3 ####[facility] ([id number])[address], [address], [place] [address]VIMQURS AND INRon 96-60-7566HFK Coag (PPP) [Relative time]1.7 {INR}High0.8-1.1POur Lady of [facility] Anderson HospitalComment on above:Performed By: #### CBCA, BMP, 21569-5, PINR, 57176-8 ####[facility] ([id number])[address], [address] [place] [place] [address]CU Coag (PPP) [Time]19.3 sHigh9.8-13.2POur [facility] HospitalComment on above:Performed By: #### CBCA, BMP, 86308-2, PINR, 52838-3 ####[facility] ([id number])[address], [address] [place] [address]vXDI Coag (PPP) [Time]on 10-61-7113mNOH Coag (Bld) [Time]72 iLktt07-43TylOavkif [facility] Comment on above:Performed By: #### 2823-3, 43999-8, 23336-0 ####[facility] ([id number])[address], [address] [place] [place] [address]tGGK Coag (Bld) [Time]88 aMxin25-91WovPdvppe [facility] HospitalaPTT Coag (Bld) [Time]58 sHigh 26-37Pro[facility]ger HospitalComment on above:Performed By: #### CBCA, BMP, 22243-6, PINR, 33909-5 ####[facility] ([id number])[address], [address] [place], [place] [address]mDHS Coag (Bld) [Time]78 qUigp78-32BxtYpqwfy Hilger HospitalComment on above:Performed By: #### 46239-2, 2823-3 ####[facility] ([id number])[address], [address], [place] [address]WXIAV METABOLIC PANLon 22-78-9873Mnhsq gap [Moles/Vol]8 mmol/LNormal5-15ProCincinnati Shriners HospitalComment on above:Performed By: #### CBCA, BMP, 14007-1, PINR, 10367-4, LIVR ####[facility] ([id number])[address], [address], [place] [address]Fdiqasb [Mass/Vol]8.0 mg/dLLow8.5-10.5PNationwide Children's HospitalComment on above:Performed By: #### CBCA, BMP, 17087-3, PINR, 22051-4, LIVR ####[facility] ([id number])[address], [address], [place] [address]Bfmohjfv [Moles/Vol]87 mmol/OScx79-785EbhYbrowhCincinnati Shriners HospitalComment on above:Performed By: #### CBCA, BMP, 83239-6, PINR, 61653-0, LIVR ####[facility] ([id number])[address], [address], [place] [address]MR[address] [Moles/Vol]38 mmol/JKjqq86-93NsoLxyqtiNationwide Children's Hospital Comment on above:Performed By: #### CBCA, BMP, 52746-8, PINR, 16869-9, LIVR ####[facility] ([id number])[address], [address], [place] [address]Ipuseixxxu [Mass/Vol]0.52 mg/dLLow0.60-1.30[facility] Comment on above:Result Comment: METHOD TRACEABLE TO IDMS STANDARDPerformed By: #### CBCA, BMP, 10244-6, PINR, 96398-5, LIVR ####[facility] ([id number])[address], [address], [place] [address]cBFL (CKD-EPI) NON-RACE DEPENDENT>90Normal>59ProMedica [facility]rell HospitalComment on above:Result Comment: Reported eGFR is based on theCKD-EPI 2020 equation that doesnot use a race coefficient.Performed By: #### ISELA FOLEY, 40740-6, PINR, 54801-8, LIVR ####[facility] ([id number])[address], [address] [place] [address] 87[address]Dndcolq [Mass/Vol]102 mg/lPLsde52-67TguZlwnvg [place] HospitalComment on above:Performed By: #### OG, ISELA, 02007-1, PINR, 12647-7, LIVR ####[facility] ([id number])[address], [address] [place] [address] Potassium [Moles/Vol]3.6 mmol/LNormal3.5-5.0ProCincinnati Shriners HospitalComment on above:Performed By: #### ISELA FOLEY, 75840-9, PINR, 75733-0, LIVR ####[facility] ([id number])[address], [address] [place] [address] Sodium [Moles/Vol]133 mmol/OBbe063-739PxuLvjgcdCincinnati Shriners HospitalComment on above: Performed By: #### ISELA FOLEY, 78288-0, PINR, 68853-8, LIVR ####[facility] ([id number])[address], [address] [place] [address] 33363Dmpo nitrogen [Mass/Vol]15 mg/dLNormal5-27ProPomerene Hospital HospitalComment on above:Performed By: #### ISELA FOLEY, 17350-2, PINR, 68888-2, LIVR ####[facility] ([id number])[address], [address] [place] [address]BNG AND AUTO DIFFon 39-10-3980LTTZMNJJ BASOPHIL0.1 X10E9/LNormal0.0-0.2PNationwide Children's Hospital Comment on above:Performed By: #### OG, BMP, 20865-4, PINR, 77199-9, LIVR ####[facility] ([id number])[address], [address], [place] [address]QPWIWNRU IASRTCUVNZ93.8 X10E9/LHigh1.5-6.6Pro[facility] HospitalComment on above:Performed By: #### CBCA, BMP, 96272-5, PINR, 75914-8, LIVR ####[facility] ([id number])[address], [address], [place] [address] Basophils/100 WBC (Bld)0.2 %NormalProMedica Terrell HospitalComment on above: Performed By: #### CBCA, BMP, 97519-3, PINR, 44129-2, LIVR ####[facility] ([id number])[address], [address] [place] [address]Dphlofezvfz (Bld) [#/Vol]0.0 10*3/uLNormal0.0-0.4Pro[facility] Hilger HospitalComment on above: Performed By: #### CBCA, BMP, 26156-1, PINR, 28663-5, LIVR ####[facility] ([id number])[address], [address], [place] [address]Iuckccoyfai/100 WBC (Bld)0.1 %NormalProMedica Terrell HospitalComment on above:Performed By: #### CBCA, BMP, 60702-7, PINR, 18849-0, LIVR ####[facility] ([id number])[address], [address] [place] [address] 92927Hgpxvqewysa distribution width (RBC) [Ratio]17.3 %High11.5-15.0Pro[facility]ica Terrell HospitalComment on above: Performed By: #### CBCA, BMP, 14377-1, PINR, 12840-4, LIVR ####[facility] ([id number])[address], [address], [place] [address]Kymhnmgnyi (Bld) [Volume fraction]35.2 %Sxz95-03NptPlyivl [place] HospitalComment on above: Performed By: #### CBCA, BMP, 22138-2, PINR, 24065-3, LIVR ####[facility] ([id number])[address], [address], [place] [address]Gwcwkzgzgf (Bld) [Mass/Vol]11.5 g/dLLow13.0-17.0ProBlanchard Valley Health System Blanch[facility] Valley Hospitalca Hilger HospitalComment on above: Performed By: #### CBCA, BMP, 56730-5, PINR, 15228-7, LIVR ####[facility] ([id number])[address], [address] [place] [address] 93391Ctreamvgbpc (Bld) [#/Vol]2.9 10*3/uLNormal1.0-3.5Pro[facility] Hilger HospitalComment on above: Performed By: #### CBCA, BMP, 22611-9, PINR, 86322-4, LIVR ####[facility] ([id number])[address], [address], [place] [address]Jwscdybpnzi/100 WBC (Bld)11.9 %NormalProPomerene Hospital HospitalComment on above:Performed By: #### CBCA, BMP, 10625-1, PINR, 57156-7, LIVR ####[facility] ([id number])[address], [address], [place] [address]ZGE (RBC) [Entitic mass] 29.7 coHtctgd19-40VkrBzxqeh [place] HospitalComment on above:Performed By: #### CBCA, BMP, 90324-4, PINR, 80076-8, LIVR ####[facility] ([id number])[address], [address], [place] [address]RFKX (RBC) [Mass/Vol]32.6 g/lJNdrgha00-32WpuFaczbm [facility] HospitalComment on above:Performed By: #### CBCA, BMP, 56606-8, PINR, 55233-3, LIVR ####[facility] ([id number])[address], [address] [place] [address] 94[address]SEY (RBC) [Entitic vol]91 zOUqxwko09-736SyrIqtzyp [facility] HospitalComment on above:Performed By: #### CBCA, BMP, 45642-1, PINR, 73932-7, LIVR ####[facility] ([id number])[address], [address] [place] [address] 618[address]Dosdxjewo (Bld) [#/Vol]3.9 10*3/uL High0-0.9Pro[facility]ica [facility] HospitalComment on above:Performed By: #### CBCA, BMP, 72011-7, PINR, 87295-8, LIVR ####[facility] ([id number])[address], [address] [place] [address] 24702Ddpmlanww/100 WBC (Bld)15.6 %NormalProMedica Terrell HospitalComment on above:Performed By: #### CBCA, BMP, 61066-4, PINR, 41281-1, LIVR ####[facility] ([id number])[address], [address] [place] [address] 65727Ivfobshmbbc/100 WBC (Bld)72.2 %NormalProMedica Terrell HospitalComment on above:Performed By: #### CBCA, BMP, 55249-7, PINR, 76482-7, LIVR ####[facility] ([id number])[address], [address] [place] [address] 63[address]Fgartlgg mean volume (Bld) [Entitic vol]9.3 fLNormal7-12 [facility] HospitalComment on above:Performed By: #### CBCA, BMP, 71379-9, PINR, 46087-5, LIVR ####[facility] ([id number])[address], [address] [place] [address]Kcfaykxvb (Bld) [#/Vol]384 10*3/cTHocukr851-569 [facility] HospitalComment on above:Performed By: #### CBCA, BMP, 87996-6, PINR, 63391-6, LIVR ####[facility] ([id number])[address], [address] [place] [address] 29256JRW COUNT3.87 X10E12/LLow4.10-5.70Pro[facility] HospitalComment on above:Performed By: #### CBCA, BMP, 81681-4, PINR, 52418-8, LIVR ####[facility] ([id number])[address], [address] [place] [address] 636[address]CRE (Bld) [#/Vol]24.7 10*3/uLHigh4.0-11.0Pro[facility] HospitalComment on above:Performed By: #### CBCA, BMP, 40581-0, PINR, 77683-7, LIVR ####[facility] ([id number])[address], [address] [place] [address] 84035Bfyj cytometry specialist review Nasir (Unsp spec) [Interp]on 45-08-2179MSCO CYTOMETRY TISSUE/FLUID, NON CSF/NON BALSEE SEPARATE REPORTNormal [facility]rell HospitalComment on above:Result Comment: REVIEWED BY DEREK MARTINEZ M.D.Performed By: #### 36724-3 ####[facility] ([id number])[address], [address] [place] [address] 732[address]LN BIOPSY LYMPH NODEon 28-17-0555FB BIOPSY LYMPH NODENormalProMedica Hilger HospitalLIVER PANELon 23-82-7479Cjxlfrt [Mass/Vol]2.3 g/dLLow3.2-5.3POur [facility] HospitalComment on above:Performed By: #### CBCA, BMP, 88424-1, PINR, 03027-0, LIVR ####[facility] ([id number])[address], [address] [place], [place] [address]XBY [Catalytic activity/Vol]132 U/DKtqb19-847GneYsduav [place] HospitalComment on above:Performed By: #### CBCA, BMP, 18145-9, PINR, 13566-5, LIVR ####[facility] ([id number])[address] [place] [place] [address]JRT [Catalytic activity/Vol]35 U/LNormal0-40ProPome[facility] Hospital HospitalComment on above:Performed By: #### CBCA, BMP, 73411-7, PINR, 64030-5, LIVR ####[facility] ([id number])[address], [address], [place] [address]OJE [Catalytic activity/Vol]22 U/LNormal0-41ProP[facility] Hospital HospitalComment on above:Performed By: #### CBCA, BMP, 64602-3, PINR, 77399-4, LIVR ####[facility] ([id number])[address], [address] [place] [address] Bilirubin [Mass/Vol]0.8 mg/dLNormal0.3-1.2POur [facility] of [facility] HospitalComment on above:Performed By: #### CBCA, BMP, 99563-8, PINR, 50641-1, LIVR ####[facility] ([id number])[address] [place] [address] Bilirubin.direct [Mass/Vol]0.4 mg/dLNormal0.0-0.4[facility] Comment on above:Performed By: #### CBCA, BMP, 13395-2, PINR, 03433-7, LIVR ####[facility] ([id number])[address] [facility] [address] [place] [address]Kezlqms [Mass/Vol]5.4 g/dLLow6.0-8.0ProP[facility] Hospital HospitalComment on above:Performed By: #### CBCA, BMP, 09201-1, PINR, 25256-9, LIVR ####[facility] ([id number])[address] [facility] [address] [place] [address] MAGNESIUMon 53-14-2024Ubbiyefjj [Mass/Vol]2.0 mg/dLNormal1.8-2.6ProBlanchard Valley Health System Bl[facility] Hospitalca Hilger HospitalComment on above:Performed By: #### CBCA, BMP, 89102-4, PINR, 92992-6, LIVR ####[facility] ([id number])[address] [facility] [address] [place] [address] 28517BLZHSEV AND INRon 02-62-7312VHH Coag (PPP) [Relative time]1.6 {INR}High0.8-1.1ProMedWestern [facility] HospitalComment on above:Performed By: #### CBCA, BMP, 25764-5, PINR, 02565-3, LIVR ####[facility] ([id number])[address] [facility] [address] [place] [address] 90389VR Coag (PPP) [Time]18.8 s High9.8-13.2POur [facility] HospitalComment on above:Performed By: #### CBCA, BMP, 10758-4, PINR, 85175-7, LIVR ####[facility] ([id number])[address] [facility] [address] [place] [address] 518[address]Gasybqmq Pathologyon 07-10-2023 Surgical PathologyNormalProPomerene Hospital HospitalComment on above:Result Comment: [facility] [address] [place] [address] Surgical Pathology ConsultationPatient Name:TORSTEN HAYWOOD:1955 (Age: 67)Gender:MTaken:4Reported:4Physician(s):Sydnie Garces ([phone])Copy To:Shahbaz Purvis [facility] CenterzenAccession #:[id number]. Rec. #:[id number]: #[id number] Pathologic DiagnosisLymph node, left retroperitoneal, needle biopsy ([id number]; 07/10/2023): Classic Hodgkin lymphoma. See comment.Morphologically, there [...] CD20, CD30, CD45, and PAX5) and at [facility] in [place], [place] (CD2, CD4, CD7, CD8, CD15, CD30, CD45, GATA3, and PAX5).Independent verification of results: Some of the immunoperoxidase stains were repeated in this case. It was the risk and insurance consultant's opinion that certain stains critical to the diagnosis had to berepeated in the [facility] immunohistochemistry laboratory to verify the results observed [...] is that of Brittney Elizondo M.D., [facility], [place], [place]. Please see the complete report in the patient's EMR. Report Electronically Signed [facility]07/22/2023Derek Shah MD _ Flo w Cytometry-Surg/BM/NG Date Reported: 07/22/2023Immunophenotypic analysis of the retroperitoneal node leukocytes demonstrates sparse lymphocytes comprised of a predominance of phenotypically unremarkable T-cells and veryfew B-cells. No monoclonal lymphoid population is detected.Immunophenotyping antibodies tested: CD3, CD5, CD7, CD10, CD19, CD20, CD23, CD45, Krupp, and Lambda.Immunophenotyping Comment:Immunophenotyping has been used in this diagnostic evaluation. This test was developed and its performance characteristics determined by the [facility] Department. It has not been [...] testing.Electronically Signed OutDerek Martinez MD Preliminary Report ([facility]) Date Reported: 07/16/2023Left retroperitoneal lymph node, CT-guided core biopsy: Lymphoid neoplasm. Final diagnosis pending outside consultation at [facility].Comment:The differential diagnosis would include Hodgkin lymphoma and T-cell lymphoma. Final diagnosis is pending consultation at [facility].Electronically Signed OutDerek Shah MDInterpretation performed at [email or web address], [address] [place] [address], License number: [id number].Clinical HistoryRight hilar mass, liver lesions and bulky retroperineal LAD, concern for metastatic disease vs. lymphoma, prefer LN.Gross Description Received in formalin labeled YOBANY, left lymph node are three mvpk-uhn-ssqz toro delicate needle core segments of soft tissue, 1.0, 1.2, and 1.7 cm in length. The specimens are submitted entirely in a single cassette. Received in translucent, watery solution is a vrgx-zrc-cxxl toro delicate needle core segment of soft tissue, 1.2 cm in length. The specimen is submitted entirely in RPMI media to flow cytometry. (1, ns, [id number], m6) [facility]/07/10/2023GRSpecimen(s) Received Left lymph nodeFee Codes(s):1; 03088, 82863, 72020(7), 67251-LM, 18303Dqdkwxpc PathologyOrdered By: Shahida Gooden on 60-88-8472QrhZxeomjToledo HospitalaPTT Coag (PPP) [Time]on 59-44-4016kIKM Coag (Bld) [Time]72 zXoof66-11ZbrOovkrr [facility] HospitalComment on above:Performed By: #### CBCA, BMP, 70711-4, PINR, 79416-5, LIVR ####[facility] ([id number])[address], [address], [place] [address]JOMEU METABOLIC PANLon 06-58-3911Lrazt gap [Moles/Vol]7 mmol/LNormal5-15Pro[facility] Terrell HospitalComment on above:Performed By: #### GUSTAVO, 18766-1, BMP, CBCA, 17741-1 ####[facility] ([id number])[address], [address] [place] [address]Yufrybm [Mass/Vol]8.0 mg/dLLow8.5-10.5Pro[facility]ica Hilger HospitalComment on above:Performed By: #### GUSTAVO, 84687-0, BMP, CBCA, ####[facility] ([id number])[address], [address], [place] [address]Extqofep [Moles/Vol]92 mmol/TFbb22-918JppCjavmf [place] HospitalComment on above:Performed By: #### GUSTAVO, 44640-6, ISELA, CBCA, ####[facility] ([id number])[address], [address] [place] [address] 89066KJ7 [Moles/Vol] 33 mmol/XGqov66-54BzjLfocoa [place] HospitalComment on above:Performed By: #### GUSTAVO, 42261-6, BMP, CBCA, ####[facility] ([id number])[address] [place] [address]Ufnvwcmslx [Mass/Vol]0.46 mg/dLLow0.60-1.30ProPomerene Hospital HospitalComment on above:Result Comment: METHOD TRACEABLE TO IDMS STANDARDPerformed By: #### GUSTAVO, 78816-5, BMP, CBCA, ####[facility] ([id number])[address] [address] [place] [place] [address]aLKJ (CKD-EPI) NON-RACE DEPENDENT>90Normal>59ProMedica Terrell HospitalComment on above:Result Comment: Reported eGFR is based on theCKD-EPI 2020 equation that doesnot use a race coefficient.Performed By: #### GUSTAVO, 87533-4, BMP, CBCA, ####[facility] ([id number])[address], [address] [place] [address] 71676Lupyjgd [Mass/Vol]113 mg/oOXcrn07-39 [facility] HospitalComment on above:Performed By: #### GUSTAVO, 83882-8, BMP, CBCA, ####[facility] ([id number])[address], [address] [place] [address] 13698Szhwscvzg [Moles/Vol]3.9 mmol/LNormal3.5-5.0[facility] HospitalComment on above:Performed By: #### GUSTAVO, 23716-5, BMP, CBCA, ####[facility] ([id number])[address], [address] [place] [address] 29427Dpqmms [Moles/Vol]132 mmol/FDiz817-778HodNitwal [facility]ger HospitalComment on above:Performed By: #### GUSTAVO, 00277-6, BMP, CBCA, ####[facility] ([id number])[address], [address] [place] [address] 76551Scyj nitrogen [Mass/Vol]20 mg/dLNormal5-27[facility] HospitalComment on above:Performed By: #### GUSTAVO, 89791-5, BMP, CBCA, ####[facility] ([id number])[address], [address] [place] [address] 74062VKH AND AUTO DIFFon 46-57-6157FSPS7+AbnormalNONEProMedica Terrell HospitalComment on above:Performed By: #### GUSTAVO, 15099-9, BMP, CBCA, ####[facility] ([id number])[address], [address] [place] [address] 23588Wogedqwcqfh (Bld) [#/Vol]0.3 10*3/uLNormal0.0-0.4[facility] HospitalComment on above: Performed By: #### GUSTAVO, 23396-3, BMP, CBCA, ####[facility] ([id number])[address], [address] [place] [address] 19611Nnfwkyysjlt/100 WBC (Bld)1.0 %NormalProBlanchard Valley Health System [facility] Hospitalca Hilger HospitalComment on above:Performed By: #### GUSTAVO, 45181-7, BMP, CBCA, ####[facility] ([id number])[address] [address] [place] [address] 34939Fxsreaklles distribution width (RBC) [Ratio]17.2 %High11.5-15.0ProBlanchard Valley Health [facility] Hospitalca Terrell HospitalComment on above: Performed By: #### GUSTAVO, 78879-1, ISELA, CBCA, ####[facility] ([id number])[address] [address] [place] [address] 19313Rxagpvicjn (Bld) [Volume fraction]37.0 %Vfd96-52FwnLjkjmn Terrell HospitalComment on above: Performed By: #### GUSTAVO, 54611-7, ISELA, CBCA, ####[facility] ([id number])[address] [address] [place] [address] 20749Chrvbwfuqa (Bld) [Mass/Vol]12.2 g/dLLow13.0-17.0ProBlanch[facility] Hospitalca Terrell HospitalComment on above: Performed By: #### GUSTAVO, 25575-4, BMP, CBCA, ####[facility] ([id number])[address] [address]Itbpiwqiepp (Bld) [#/Vol]2.1 10*3/uLNormal1.0-3.5[facility] HospitalComment on above: Performed By: #### GUSTAVO, 68327-5, BMP, CBCA, ####[facility] ([id number])[address], [address] [place] [address] 98406Oqcetmltlth/100 WBC (Bld)7.0 %NormalProMedica Hilger HospitalComment on above:Performed By: #### PINR, 64810-6, BMP, CBCA, ####[facility] ([id number])[address], [address] [place] [address] 00857NXZ (RBC) [Entitic mass] 29.6 yaCrpube69-22JvfCmsdjl [facility]rell HospitalComment on above:Performed By: #### PINR, 79984-8, BMP, CBCA, ####[facility] ([id number])[address], [address] [place] [address] 13755KPOK (RBC) [Mass/Vol]33.0 g/qLSramjf69-49OlnKemusc Terrell HospitalComment on above:Performed By: #### PINR, 59740-9, BMP, CBCA, ####[facility] ([id number])[address], [address] [place] [address] 04784HHG (RBC) [Entitic vol]90 bHXeoyjd02-466MibMjxyot [facility] HospitalComment on above:Performed By: #### PINR, 76836-3, BMP, CBCA, ####[facility] ([id number])[address], [address] [place] [address] 42890Eyadqhgxr (Bld) [#/Vol]3.1 10*3/uLHigh0-0.9 [facility] HospitalComment on above:Performed By: #### PINR, 90222-0, BMP, CBCA, ####[facility] ([id number])[address], [address] [place] [address] 13041Bnzsprqry/100 WBC (Bld)10.0 %NormalProPomerene Hospital HospitalComment on above:Performed By: #### GUSTAVO, 80004-6, BMP, CBCA, ####[facility] ([id number])[address], [address] [place] [address] 15642Mfervbwotkg (Bld) [#/Vol]25.1 10*3/uLHigh1.5-6.6[facility] Comment on above:Performed By: #### GUSTAVO, 04439-4, BMP, CBCA, ####[facility] ([id number])[address], [address] [place] [address] 89868 Platelet mean volume (Bld) [Entitic vol]9.1 fLNormal7-12[facility] HospitalComment on above:Performed By: #### GUSTAVO, 20764-3, BMP, CBCA, ####[facility] ([id number])[address], [address] [place] [address] 97651Iurmafajp (Bld) [#/Vol]366 10*3/gWXxvmet594-772GulXeckmuMemorial Health System Comment on above:Performed By: #### GUSTAVO, 18490-9, BMP, CBCA, ####[facility] ([id number])[address], [address] [place] [address] 60773DSC COUNT4.12 X10E12/LNormal4.10-5.70[facility] HospitalComment on above: Performed By: #### GUSTAVO, 14085-5, BMP, CBCA, ####[facility] ([id number])[address], [address] [place] [address] 11283TFU NEUTROPHIL 82.0 %NormalProPomerene Hospital HospitalComment on above:Performed By: #### GUSTAVO, 30450-9, BMP, CBCA, ####[facility] ([id number])[address] [address] [place] [address] 30722XFL (Bld) [#/Vol]30.6 10*3/uLHigh4.0-11.0 [facility] HospitalComment on above:Performed By: #### GUSTAVO, 06768-1, BMP, CBCA, ####[facility] ([id number])[address] [address]KDIFC RESPIRATORY CULTUREon 97-36-9027Xsrwnnmd identified Respiratory culture Nom (Sput)GRAM STAIN >25 SQUAMOUS EPITHELIAL CELLS/LPF WITH MIXED BACTERIAL TYPES SEEN. REGARDED SALIVA NOT SPUTUM. CULTURE RESULTS CULTURE CANCELLED. SPECIMEN DOES NOT MEET CRITERIA FOR CULTURING. PLEASE REORDER AND RESUBMIT.NormalProMedica Hilger HospitalComment on above:Performed By: #### 624-7 ####[facility] ([id number])[address] [address] [place] [address] 24512VCZHBQYSDeb 77-93-5462Gdqwaurgp [Mass/Vol]2.0 mg/dLNormal 1.8-2.6ProBlanch[facility] Hospitalca [facility] HospitalComment on above:Performed By: #### 40518-6, 84766-4 ####[facility] ([id number])[address] [address]Vawryngvd [Mass/Vol]1.9 mg/dLNormal1.8-2.6Pro[facility] HospitalComment on above:Performed By: #### GUSTAVO, 67481-9, BMP, CBCA, ####[facility] ([id number])[address] [address] [place] [address] 90867HAGIRAY AND INRon 58-29-1550LXQ Coag (PPP) [Relative time]1.8 {INR}High 0.8-1.1[facility] HospitalComment on above:Performed By: #### GUSTAVO, 85671- 9, BMP, CBCA, 17412-9 ####[facility] ([id number])[address], [address] [place], [place] [address]CV Coag (PPP) [Time]20.1 sHigh9.8-13.2 [facility] HospitalComment on above:Performed By: #### GUSTAVO, 35271-8, BMP, CBCA, 60214-1 ####[facility] ([id number])[address], [address] [place], [place] [address]XA CHEST 1 VWon 24-76-1999IL CHEST 1 VWNormalProMedica [facility] Mansfield HospitalaPTT Coag (PPP) [Time]on 47-24-5724eYYV Coag (Bld) [Time]58 sHigh 26-37[facility] HospitalComment on above:Performed By: #### 70147-5, 13196-4 ####[facility] ([id number])[address], [address], [place] [address]ePSK Coag (Bld) [Time]67 tXura54-86XrgLiopup [facility] Comment on above:Performed By: #### 51168-3 ####[facility] ([id number])[address], [address], [place] [address]iPCL Coag (Bld) [Time]56 s Usge77-87QfrWmkbml [facility] HospitalComment on above:Performed By: #### PINR, 33696-4, BMP, CBCA, 26848-8 ####[facility] ([id number])[address], [address] [place], [place] [address]JSVCE METABOLIC PANLon 43-97-1260Ahdly gap [Moles/Vol]9 mmol/LNormal5-15[facility] HospitalComment on above:Performed By: #### PINR, CBCA, BMP ####[facility] ([id number])[address] [place], [place] [address]Axalduz [Mass/Vol]9.0 mg/dLNormal8.5-10.5 [facility] HospitalComment on above:Performed By: #### OG CHEN, BMP ####[facility] ([id number])[address] [address] [place], [place] [address]Rduupysp [Moles/Vol]88 mmol/WFlu96-879QmvAnsfbe [facility]rell HospitalComment on above:Performed By: #### OG CHEN, BMP ####[facility] ([id number])[address] [address], [place] [address]TT9 [Moles/Vol]35 mmol/L Xihd97-45OqiKgvvhl [facility] HospitalComment on above:Performed By: #### OG CHEN, BMP ####[facility] ([id number])[address] [address] [place], [place] [address]Difyccoqyi [Mass/Vol]0.55 mg/dLLow0.60-1.30[facility] HospitalComment on above:Result Comment: METHOD TRACEABLE TO IDMS STANDARD Performed By: #### OG CHEN, BMP ####[facility] ([id number])[address] [address] [place], [place] [address]tLUG (CKD-EPI) NON-RACE DEPENDENT>90Normal>59[facility] HospitalComment on above:Result Comment: Reported eGFR is based on theCKD-EPI 2020 equation that doesnot use a race coefficient.Performed By: #### OG CHEN, BMP ####[facility] ([id number])[address] [address], [place] [address]Ovvudyh [Mass/Vol]124 mg/dL Kqdb51-34UooVukppw [facility] HospitalComment on above:Performed By: #### OG CHEN, BMP ####[facility] ([id number])[address] [address] [place] [address] 05578Xbgepadzo [Moles/Vol]3.6 mmol/LNormal3.5-5.0[facility] HospitalComment on above:Performed By: #### OG CHEN, BMP ####[facility] ([id number])[address], [address] [place] [address] 98989Talict [Moles/Vol]132 mmol/ADue157-274PwbGygyqb [place] HospitalComment on above: Performed By: #### OG CHEN, BMP ####[facility] ([id number])[address], [address] [place] [address] 12695Byka nitrogen [Mass/Vol]25 mg/dLNormal5-27[facility] HospitalComment on above:Performed By: #### OG CHEN, BMP ####[facility] ([id number])[address], [address] [place] [address] 73727LIY AND AUTO DIFFon 80-67-9739Dmku form neutrophils/100 WBC (Bld)1.0 %NormalProPomerene Hospital HospitalComment on above:Performed By: #### OG CHEN, BMP ####[facility] ([id number])[address] [address] [place] [address] 48032Ztzmvqshuyd distribution width (RBC) [Ratio] 17.0 %High11.5-15.0[facility] HospitalComment on above:Performed By: #### GUTSAVO CBCA, BMP ####[facility] ([id number])[address], [address] [place] [address] 44704Wlnapcomml (Bld) [Volume fraction]38.9 %Byc91-07 [facility] HospitalComment on above:Performed By: #### GUSTAVO CBCA, BMP ####[facility] ([id number])[address] [address] [place] [address] 00522Ylsepvpywp (Bld) [Mass/Vol]12.8 g/dLLow13.0-17.0ProBl[facility] Comment on above:Performed By: #### PINR, CBCA, BMP ####[facility] ([id number])[address], [place] [address]Vptizlqcvig (Bld) [#/Vol]3.7 10*3/uLHigh1.0-3.5[facility] HospitalComment on above:Performed By: #### PINR, CBCA, BMP ####[facility] ([id number])[address], [place] [address]Eaqplzaibem/100 WBC (Bld)12.0 %Normal [facility] HospitalComment on above:Performed By: #### PINR, CBCA, BMP ####[facility] ([id number])[address], [address] [place] [address] 20442FDD (RBC) [Entitic mass]29.9 jyAhedvu55-04ShdCfswqo [place] HospitalComment on above:Performed By: #### PINR, CBCA, BMP ####[facility] ([id number])[address], [place] [address]NRPW (RBC) [Mass/Vol]32.9 g/fYPgnhnh75-53LkpXcgvat [place] HospitalComment on above:Performed By: #### PINR, CBCA, BMP ####[facility] ([id number])[address], [address], [place] [address]JFS (RBC) [Entitic vol]91 jTVyyqsq22-298DetCdmmlx [place] HospitalComment on above:Performed By: #### PINR, CBCA, BMP ####[facility] ([id number])[address], [place] [address] Metamyelocytes/100 WBC (Bld)1.0 %NormalProMedica Terrell HospitalComment on above:Performed By: #### PINJessica CBCA, BMP ####[facility] ([id number])[address], [address] [place] [address] 99542Pbxlyonjh (Bld) [#/Vol]4.0 10*3/uLHigh0-0.9[facility] HospitalComment on above:Performed By: #### PINJessica, CBCA, BMP ####[facility] ([id number])[address], [place] [address]Nhbopaplq/100 WBC (Bld)13.0 %NormalProMedica Terrell HospitalComment on above:Performed By: #### PINJessica CBCA, BMP ####[facility] ([id number])[address], [address] [place] [address] 850[address]Ezapzoymutj (Bld) [#/Vol]22.9 10*3/uLHigh1.5-6.6[facility] HospitalComment on above: Performed By: #### PINJessica CBCA, BMP ####[facility] ([id number])[address], [address] [place] [address] 41454Eeofqksg mean volume (Bld) [Entitic vol]8.9 fLNormal7-12[facility] HospitalComment on above:Performed By: #### PINR, CBCA, BMP ####[facility] ([id number])[address], [address] [place] [address] 13981Jqjazvfxe (Bld) [#/Vol]415 10*3/uLNormal 150-450[facility] HospitalComment on above:Performed By: #### PINR, CBCA, BMP ####[facility] ([id number])[address], [address] [place] [address] 41374EGT COUNT4.28 X10E12/LNormal4.10-5.70[facility] HospitalComment on above:Performed By: #### PINJessica CBCA, BMP ####[facility] ([id number])[address], [address] [place] [address] 58292OWUYZASK6+ AbnormalNONEProMedica Hilger HospitalComment on above:Performed By: #### GUSTAVO CBCA, BMP ####[facility] ([id number])[address], [address] [place] [address] 23422UDS KCBZXETKJY58.0 %NormalProMedica Hilger HospitalComment on above:Performed By: #### BRIDGET CHENA, BMP ####[facility] ([id number])[address], [address] [place] [address] 73154MCO (Bld) [#/Vol]30.9 10*3/uLHigh4.0-11.0ProBl[facility] Hospitalca [facility] HospitalComment on above:Performed By: #### OG CHEN, BMP ####[facility] ([id number])[address], [address] [place] [address] 66105WRHJSCRQCsd 56-87-2392Rlbpqhhxn [Moles/Vol]4.0 mmol/L Normal3.5-5.0ProBlanch[facility] Hospitalca [facility] HospitalComment on above:Performed By: #### 2823-3 ####[facility] ([id number])[address] [place] [address] 16240OPMKBXQ AND INRon 22-29-5907BDT Coag (PPP) [Relative time]2.0 {INR}High 0.8-1.1[facility] HospitalComment on above:Performed By: #### GUSTAVO CBCA, BMP ####[facility] ([id number])[address], [address] [place] [address] 45908LD Coag (PPP) [Time]22.4 sHigh9.8-13.2[facility] HospitalComment on above:Performed By: #### OG CHEN, BMP ####[facility] ([id number])[address] [place], [place] [address]GDRIY METABOLIC PANLon 26-40-2908Quces gap [Moles/Vol]10 mmol/LNormal5-15[facility] HospitalComment on above:Performed By: #### OG, BMP ####[facility] ([id number])[address], [address] [place] [address] 25373Xkozxga [Mass/Vol]9.6 mg/dLNormal8.5-10.5[facility] HospitalComment on above: Performed By: #### OG, BMP ####[facility] ([id number])[address], [place] [address]Irwupbhg [Moles/Vol]85 mmol/LTed38-880 [facility] HospitalComment on above:Performed By: #### OG, BMP ####[facility] ([id number])[address], [place] [address]JL8 [Moles/Vol]38 mmol/FArfb97-04OyhKmbnhc [place] HospitalComment on above:Performed By: #### OG, BMP ####[facility] ([id number])[address] [address] [place] [address] 933[address]Xodowqmsxl [Mass/Vol]0.57 mg/dLLow0.60-1.30[facility] HospitalComment on above:Result Comment: METHOD TRACEABLE TO IDMS STANDARDPerformed By: #### OG, BMP ####[facility] ([id number])[address] [facility] [place] [place] [address]mLPA (CKD-EPI) NON-RACE DEPENDENT>90Normal>59[facility] HospitalComment on above:Result Comment: Reported eGFR is based on theCKD-EPI 2020 equation that doesnot use a race coefficient.Performed By: #### OG BMP ####[facility] ([id number])[address], [place] [address]Madrjjs [Mass/Vol]98 mg/sEPyccpr84-12VbpOeopea [facility] HospitalComment on above:Performed By: #### OG BMP ####[facility] ([id number])[address], [place] [address]Eqstigufl [Moles/Vol]3.6 mmol/LNormal3.5-5.0[facility] HospitalComment on above:Performed By: #### OG BMP ####[facility] ([id number])[address], [place] [address]Xjkcbf [Moles/Vol]133 mmol/TYpe672-593GegCbcwcr [facility] HospitalComment on above: Performed By: #### OG, BMP ####[facility] ([id number])[address], [place] [address]Azxc nitrogen [Mass/Vol]30 mg/dLHigh5-27 [facility] HospitalComment on above:Performed By: #### OG, BMP ####[facility] ([id number])[address], [address] [place] [address] 235[address]MUKDA CULTUREon 76-39-2194Qshctaqt identified Aer cx Nom (Bld)CULTURE RESULTS NO GROWTH 5 DAYSNormalProMedica Terrell HospitalCBC AND AUTO DIFFon 07-07-2023 ABSOLUTE BASOPHIL0.0 X10E9/LNormal0.0-0.2[facility] HospitalComment on above:Performed By: #### OG, BMP ####[facility] ([id number])[address], [place] [address]BXWWUJRX YQGDVANZNE82.6 X10E9/LHigh1.5-6.6[facility] HospitalComment on above:Performed By: #### OG, BMP ####[facility] ([id number])[address], [place] [address]Vfzpbmcwx/100 WBC (Bld)0.1 %[facility] Comment on above:Performed By: #### CBCA, BMP ####[facility] ([id number])[address], [place] [address]Snwdeblkmcv (Bld) [#/Vol] 0.0 10*3/uLNormal0.0-0.4Pro[facility] HospitalComment on above:Performed By: #### CBCA, BMP ####[facility] ([id number])[address] [address], [place] [address]Nhlzkmkmnte/100 WBC (Bld)0.1 %NormalProPomerene Hospital HospitalComment on above:Performed By: #### CBCA, BMP ####[facility] ([id number])[address] [address], [place] [address]Bcntrcqjplo distribution width (RBC) [Ratio]17.5 %High11.5-15.0[facility] Comment on above:Performed By: #### CBCA, BMP ####[facility] ([id number])[address] [address] [place] [address]Tmbpjvrjso (Bld) [Volume fraction]38.1 %Obx27-26ZcgYwmokq [place] HospitalComment on above:Performed By: #### CBCA, BMP ####[facility] ([id number])[address], [address] [place] [address], [place] [address]Gjazbresjf (Bld) [Mass/Vol]12.5 g/dLLow13.0-17.0 [facility] HospitalComment on above:Performed By: #### CBCA, BMP ####[facility] ([id number])[address] [place], [place] [address]Jeqpscciqar (Bld) [#/Vol]3.1 10*3/uLNormal1.0-3.5PGlenwood Regional Medical Centerica [facility] Comment on above:Performed By: #### CBCA, BMP ####[facility] ([id number])[address], [address] [place] [address]Gdguummgkgx/100 WBC (Bld) 11.6 %NormalProMedica Hilger HospitalComment on above:Performed By: #### CBCA, BMP ####[facility] ([id number])[address], [address] [facility], [place] [address]OFD (RBC) [Entitic mass]29.7 bxTdgmsl96-37ZdwJwafgd Hilger HospitalComment on above:Performed By: #### CBCA, BMP ####[facility] ([id number])[address], [address] [place], [place] [address]OXGI (RBC) [Mass/Vol]32.7 g/tDEdklmx35-33TmiOhakhs Hilger HospitalComment on above: Performed By: #### CBCA, BMP ####[facility] ([id number])[address], [address], [place] [address]HZS (RBC) [Entitic vol]91 aIWowdnv50-812 [facility] Hilger HospitalComment on above:Performed By: #### CBCA, BMP ####[facility] ([id number])[address], [address], [place] [address]Ochyobogh (Bld) [#/Vol]4.3 10*3/uLHigh0-0.9ProMedica Hilger HospitalComment on above:Performed By: #### CBCA, BMP ####[facility] ([id number])[address], [address], [place] [address]Wgjuuczjk/100 WBC (Bld)15.9 %NormalProMedica Terrell HospitalComment on above:Performed By: #### CBCA, BMP ####[facility] ([id number])[address], [address] [place] [address]Xtqknnztllv/100 WBC (Bld)72.3 %NormalProMedica Terrell HospitalComment on above:Performed By: #### CBCA, BMP ####[facility] ([id number])[address], [address] [place] [address]Ppwnmxlk mean volume (Bld) [Entitic vol]9.1 fLNormal7-12ProMedica Terrell HospitalComment on above:Performed By: #### CBCA, BMP ####[facility] ([id number])[address], [address] [place] [address]Tytmwvilc (Bld) [#/Vol]396 10*3/iOWnixxu979-023 [facility]rell HospitalComment on above:Performed By: #### CBCA, BMP ####[facility] ([id number])[address], [address] [place] [address]GHP COUNT4.20 X10E12/LNormal4.10-5.70Pro[facility]ica Terrell HospitalComment on above:Performed By: #### CBCA, BMP ####[facility] ([id number])[address], [address] [place] [address]SGV (Bld) [#/Vol]27.1 10*3/uLHigh4.0-11.0ProMedica Terrell HospitalComment on above:Performed By: #### CBCA, BMP ####[facility] ([id number])[address], [address] [place] [address]IOC [Mass/Vol]on 4C REACTIVE ALAEQFU77.5 mg/dLHigh 0.000-0.744ProMedica Terrell HospitalComment on above:Performed By: #### 1985-5, 3084-1, 33657-3, 03773-3, 61287-3, 71603-0 ####[facility] ([id number])[address], [address] [place] [address]FAE Photometric method (Bld) [Velocity]on 52-30-1880EQM, ERYTHROCYTE SEDIMENTATION BEJP119 mm/hHigh0-20 [facility] HospitalComment on above:Performed By: #### 1987-5, 3084-1, 93713-4, 14416-9, 96280-3, 25310-5 ####[facility] ([id number])[address], [address] [place] [address]Bwgvlc D-dimer DDU (PPP) [Mass/Vol]on 07-07-2023 QKEYH563 ng/mL DDUHigh<255ProCincinnati Shrin[facility] Hospital Comment on above:Result Comment: Results >=255ng/mL DDU: Results may beindicative of the presence of VTE. The useof the Wells score and further diagnostictests should be considered. Elevated D-Dimerlevels can alsobe associated with DIC,neoplasm, , trauma and liver disease.Elevated levels of rheumatoid factor may leadto an overestimation of the D-Dimer level. Performed By: #### 1987-5, 3084-1, 67562-8, 88826-1, 35887-4, 23502-5 ####[facility] ([id number])[address], [address] [place] [address] HEMOGLOBINon 69-74-6313Lpiuwsluto (Bld) [Mass/Vol]12.6 g/dLLow13.0-17.0ProCincinnati Shriners HospitalComment on above:Performed By: #### 718-7, PLTCT, PINR, 74883-4 ####[facility] ([id number])[address] [address], [address] [place] [address]IYGT PCR NASALon 63-80-2499GMKR DNA DENIS+probe Ql (Unsp spec)NegativeNormal NEGProMedica Terrell HospitalComment on above:Performed By: #### 76660-6 ####[facility] ([id number])[address], [address] [place], [place] [address]MJOBFGSC COUNT AND MPVon 13-87-4109Xyylajve mean volume (Bld) [Entitic vol]8.8 fLNormal7-12ProMedica Terrell HospitalComment on above:Performed By: #### 718-7, PLTCT, PINR, 86481-7 ####[facility] ([id number])[address], [place] [address]Uwnukwqqw (Bld) [#/Vol]405 10*3/uLNormal 150-450ProMedica Terrell HospitalComment on above:Performed By: #### 718-7, PLTCT, PINR, 14750-3 ####[facility] ([id number])[address], [address] [place], [place] [address]BZTTYIKKGid 89-49-2242Stdgkrqyg [Moles/Vol]3.9 mmol/LNormal3.5-5.0ProMedica Terrell HospitalComment on above:Performed By: #### 2823-3 ####[facility] ([id number])[address] [place], [place] [address]OVBCBHN AND INRon 86-74-3877BVB Coag (PPP) [Relative time]2.0 {INR}High0.8-1.1ProMedica Terrell HospitalComment on above:Performed By: #### 718-7, PLTCT, PINR, 37560-3 ####[facility] ([id number])[address] [place], [place] [address]ZW Coag (PPP) [Time]22.8 sHigh9.8-13.2 Pro[facility]ica Terrell HospitalComment on above:Performed By: #### 718-7, PLTCT, PINR, 09933-1 ####[facility] ([id number])[address] [address], [place] [address]Ktzyysrjsuykk [place] [Mass/Vol]on 31-65-5802ROFFTXHNATVAW4.31 ng/mLHigh<0.05Memorial Health SystemComment on above:Result Comment: NOTE<0.50 ng/mL - Low risk of severe sepsis and/or septic shock.<2.00 ng/mL - Recommend retesting within 6-24 hours.>2.00 ng/mL - High risk of sepsis and/or septic shock.Performed By: #### 1988-5, 3084-1, 23876-1, 00712-5, 86987-2, 95559-7 ####[facility] ([id number])[address] [address]NJVB ACIDon 30-07-8215Clvma [Mass/Vol]3.8 mg/dLNormal2.6-7.2 [facility] Health SystemComment on above:Performed By: #### 1988-5, 3084-1, 11049-8, 72173-9, 60772-5, 92218-7 ####[facility] ([id number])[address] [address]LCCXA CULTUREon 07-07-2023 Bacteria identified Cx Nom (U)SPECIMEN NOTES URINE RECEIVED WITHOUT PRESERVATIVE CULTURE RESULTS 50-100,000 ORGANISMS/ML NORMAL UROGENITAL FLORANormalMemorial Health System Comment on above:Performed By: #### 630-4 ####[facility] ([id number])[address] [address]lGNM Coag (PPP) [Time]on 52-28-5606bYEN Coag (Bld) [Time]69 cGhzh24-56HwcQdcwkiMemorial Health SystemComment on above:Performed By: #### 38691-3 ####[facility] ([id number])[address] [address] [place], [place] [address]nUYB Coag (Bld) [Time]73 s Swzw24-92NydHsasuf Terrell HospitalComment on above:Performed By: #### 1988-5, 3084-1, 31238-9, 25812-9, 77269-6, 19877-6 ####[facility] ([id number])[address] [place], [place] [address]eJCI Coag (Bld) [Time]36 s Eclvdm56-37RslBrnsrx Terrell HospitalComment on above:Performed By: #### 718-7, PLTCT, PINR, 25931-7 ####[facility] ([id number])[address] [address] [place], [place] [address]CLYIS METABOLIC PANLon 16-98-0684Fzutl gap [Moles/Vol]8 mmol/LNormal5-15ProMedica Terrell HospitalComment on above:Performed By: #### CBCA, BMP ####[facility] ([id number])[address] [address] [place] [address], [place] [address]Qivpedw [Mass/Vol]9.9 mg/dLNormal8.5-10.5ProMedica Terrell HospitalComment on above:Performed By: #### CBCA, BMP ####[facility] ([id number])[address] [place], [place] [address]Zqeoshzd [Moles/Vol]88 mmol/EZvg42-997TzrYdmuyh Terrell HospitalComment on above:Performed By: #### CBCA, BMP ####[facility] ([id number])[address], [address] [place], [place] [address]LN5 [Moles/Vol]41 mmol/JEbtl92-23VrnUkrqrk Terrell HospitalComment on above:Performed By: #### CBCA, BMP ####[facility] ([id number])[address] [address] [place] [address]Gnkoqxtgwe [Mass/Vol]0.66 mg/dLNormal0.60-1.30ProPomerene Hospital HospitalComment on above: Result Comment: METHOD TRACEABLE TO IDMS STANDARDPerformed By: #### OG BMP ####[facility] ([id number])[address] [address], [place] [address]xCZV (CKD-EPI) NON-RACE DEPENDENT>90Normal>59Pro[facility] Comment on above:Result Comment: Reported eGFR is based on theCKD-EPI 2020 equation that doesnot use a race coefficient.Performed By: #### OG BMP ####[facility] ([id number])[address] [address]Mlpsyke [Mass/Vol]103 mg/wCDhar81-19AqyLcljrg [place] HospitalComment on above:Performed By: #### OG, BMP ####[facility] ([id number])[address] [address] [place] [address]Yfjuizdbs [Moles/Vol]3.8 mmol/LNormal3.5-5.0ProPomerene Hospital HospitalComment on above:Performed By: #### OG, BMP ####[facility] ([id number])[address] [address], [place] [address]Euolsc [Moles/Vol]137 mmol/SYvqvqk773-962UsuPpvybq [place] HospitalComment on above:Performed By: #### OG, BMP ####[facility] ([id number])[address] [address] [place] [address]Tcdi nitrogen [Mass/Vol]37 mg/dLHigh5-27ProP[facility] Hospital HospitalComment on above:Performed By: #### OG, BMP ####[facility] ([id number])[address] [address] [place] [address], [place] [address]RVT AND AUTO DIFFon 57-84-3413Sqqpleqfday distribution width (RBC) [Ratio]16.9 %High11.5-15.0Memorial Health SystemComment on above: Performed By: #### CBCA, BMP ####[facility] ([id number])[address], [place] [address]Iklirbrndq (Bld) [Volume fraction]37.9 %Low 39-49ProPomerene Hospital HospitalComment on above:Performed By: #### CBCA, BMP ####[facility] ([id number])[address], [address], [place] [address]Knwvsdqqqn (Bld) [Mass/Vol]12.6 g/dLLow13.0-17.0[facility] Comment on above:Performed By: #### CBCA, BMP ####[facility] ([id number])[address], [address], [place] [address]RFGXQZNCAP, ATYPICAL3.0 % NormalProMedica Fostoria Community Hospital HospitalComment on above:Performed By: #### CBCA, BMP ####[facility] ([id number])[address], [address], [place] [address]Hcdoepqadkl (Bld) [#/Vol]2.7 10*3/uLNormal1.0-3.5PNationwide Children's Hospital Comment on above:Performed By: #### CBCA, BMP ####[facility] ([id number])[address] [place] [address]Lyxpwkqeucu/100 WBC (Bld) 6.0 %NormalProMedica Fostoria Community Hospital HospitalComment on above:Performed By: #### CBCA, BMP ####[facility] ([id number])[address], [address] [place], [place] [address]KFK (RBC) [Entitic mass]30.0 wyPgalxd58-62ZqlOwliup Terrell HospitalComment on above:Performed By: #### CBCA, BMP ####[facility] ([id number])[address], [address] [place] [address]LEVX (RBC) [Mass/Vol]33.2 g/mKUlmych42-73TfwCqzdqb Terrell HospitalComment on above: Performed By: #### CBCA, BMP ####[facility] ([id number])[address], [address] [place] [address]BJA (RBC) [Entitic vol]91 pWSjxlia15-866 [facility] HospitalComment on above:Performed By: #### CBCA, BMP ####[facility] ([id number])[address], [address] [place] [address]Xjrrhseao (Bld) [#/Vol]4.5 10*3/uLHigh0-0.9ProBlanch[facility] Hospitalca Terrell HospitalComment on above:Performed By: #### CBCA, BMP ####[facility] ([id number])[address], [address] [place] [address]Zqwnwllyr/100 WBC (Bld)15.0 %NormalProBlanchard Valley Health System [facility] Hospitalca [facility] HospitalComment on above:Performed By: #### CBCA, BMP ####[facility] ([id number])[address], [address] [place] [address]Jezcgsefdhh (Bld) [#/Vol]22.7 10*3/uLHigh1.5-6.6ProBlanch[facility]ca [facility] Comment on above:Performed By: #### CBCA, BMP ####[facility] ([id number])[address], [address] [place] [address]29[address]Zkhshbmp mean volume (Bld) [Entitic vol]8.8 fLNormal7-12Pro[facility]rell HospitalComment on above:Performed By: #### CBCA, BMP ####[facility] ([id number])[address], [address], [place] [address]Rwbydtxrv (Bld) [#/Vol]401 10*3/lDXlmwii713-605 [facility] HospitalComment on above:Performed By: #### CBCA, BMP ####[facility] ([id number])[address], [address] [place] [address] 28[address]CTT COUNT4.19 X10E12/LNormal4.10-5.70Pro[facility]ica [facility]rell HospitalComment on above:Performed By: #### CBCA, BMP ####[facility] ([id number])[address], [address] [place] [address]APX morphology finding Nom (Bld)NORMALNormalProMedica Terrell HospitalComment on above:Performed By: #### CBCA, BMP ####[facility] ([id number])[address], [address] [place] [address]ZOI KDNCYLZSMM80.0 %NormalProMedica Terrell HospitalComment on above:Performed By: #### CBCA, BMP ####[facility] ([id number])[address], [address] [place] [address]IJR (Bld) [#/Vol]29.9 10*3/uLHigh4.0-11.0ProMedica Terrell HospitalComment on above:Performed By: #### CBCA, BMP ####[facility] ([id number])[address], [place] [address]PA ABDOMEN AND PELVIS W CONTon 67-18-0232JG ABDOMEN AND PELVIS W CONTNormalProMedica Terrell HospitalCT CARDIAC MORPHOLOGYon 23-31-9894NE CARDIAC MORPHOLOGYNormalProMedica Terrell HospitalPOTASSIUMon 07-06-2023 Potassium [Moles/Vol]3.6 mmol/LNormal3.5-5.0Pro[facility]ica Terrell HospitalComment on above:Performed By: #### 2823-3 ####[facility] ([id number])[address] [place], [place] [address]EQAQE METABOLIC PANLon 77-42-6902Qvsya gap [Moles/Vol]14 mmol/LNormal5-15Pro[facility] Hospital Comment on above:Performed By: #### OG, BMP ####[facility] ([id number])[address], [place] [address]Bunglut [Mass/Vol]10.4 mg/dLNormal8.5-10.5POur Lady of Mercy [facility] - Anderson HospitalComment on above:Performed By: #### OG, BMP ####[facility] ([id number])[address] [address] [place] [address], [place] [address]Zlmrbnot [Moles/Vol]87 mmol/NXku41-955OwpDzotik [place] HospitalComment on above:Performed By: #### OG, BMP ####[facility] ([id number])[address] [address], [place] [address]DK5 [Moles/Vol] 35 mmol/STtzh80-58QjjVvwnjw [place] HospitalComment on above:Performed By: #### OG, BMP ####[facility] ([id number])[address] [address] [place] [address]Shrjywberq [Mass/Vol]0.75 mg/dLNormal0.60-1.30Pro[facility] HospitalComment on above:Result Comment: METHOD TRACEABLE TO IDMS STANDARDPerformed By: #### OG, BMP ####[facility] ([id number])[address] [address] [place], [place] [address]mYOI (CKD-EPI) NON-RACE DEPENDENT>90Normal>59ProP[facility] Hospital HospitalComment on above:Result Comment: Reported eGFR is based on theCKD-EPI 2020 equation that doesnot use a race coefficient.Performed By: #### OG, BMP ####[facility] ([id number])[address], [place] [address]Okpniym [Mass/Vol]142 mg/dL Vrxy52-73EbyJggwww [place] HospitalComment on above:Performed By: #### CBCTrang, BMP ####[facility] ([id number])[address], [address] [place] [address]Nrcvmkwmg [Moles/Vol]3.7 mmol/LNormal3.5-5.0[facility] Comment on above:Performed By: #### CBCTrang, BMP ####[facility] ([id number])[address] [address] [place] [address]Svbnxb [Moles/Vol]136 mmol/WDwhsum726-279DbkLafoeg [place] HospitalComment on above:Performed By: #### CBCTrang, BMP ####[facility] ([id number])[address], [address] [place] [address]Eqtj nitrogen [Mass/Vol]37 mg/dLHigh5-27ProCincinnati Shriners HospitalComment on above:Performed By: #### CBCTrang, BMP ####[facility] ([id number])[address], [address] [place] [address]PNT AND AUTO DIFFon 94-65-5062Bwdw form neutrophils/100 WBC (Bld)4.0 %NormalProCincinnati Shriners HospitalComment on above:Performed By: #### CBCTrang, BMP ####[facility] ([id number])[address] [place], [place] [address]Ahdvbdgcmgg distribution width (RBC) [Ratio]17.0 %High11.5-15.0[facility] Comment on above:Performed By: #### CBCA, BMP ####[facility] ([id number])[address], [address] [place] [address], [place] [address]Gclvwchxfc (Bld) [Volume fraction]40.3 %Sjrcby27-35CdpYzwlmm [facility] HospitalComment on above:Performed By: #### CBCA, BMP ####[facility] ([id number])[address], [address], [place] [address]Fqsfphitna (Bld) [Mass/Vol]13.4 g/tIZvxzyi00.0-17.0 ProMPremier Health Atrium Medical Center HospitalComment on above:Performed By: #### CBCA, BMP ####[facility] ([id number])[address], [place] [address]Jaxbnayectx (Bld) [#/Vol]3.1 10*3/uLNormal1.0-3.5POur [facility] Comment on above:Performed By: #### CBCA, BMP ####[facility] ([id number])[address], [place] [address]Rqjfxqhupoj/100 WBC (Bld) 10.0 %NormalProPomerene Hospital HospitalComment on above:Performed By: #### CBCA, BMP ####[facility] ([id number])[address], [address] [facility] [place] [address]RGT (RBC) [Entitic mass]30.1 eiDizqdl19-33TibGklfka [place] HospitalComment on above:Performed By: #### CBCA, BMP ####[facility] ([id number])[address] [place], [place] [address]FQIC (RBC) [Mass/Vol]33.2 g/rOCeccjl37-39DjdZteaci [place] HospitalComment on above: Performed By: #### CBCA, BMP ####[facility] ([id number])[address], [place] [address]QOS (RBC) [Entitic vol]91 iLQqiefr92-852 ProMPremier Health [facility]rium [facility] Center HospitalComment on above:Performed By: #### CBCA, BMP ####[facility] ([id number])[address], [address] [place] [address]Xqbixrcwf (Bld) [#/Vol]3.4 10*3/uLHigh0-0.9Pro[facility] HospitalComment on above:Performed By: #### CBCTrang, BMP ####[facility] ([id number])[address], [address] [place] [address] 91[address]Uxkljtgqp/100 WBC (Bld)11.0 %NormalProMedica Hilger HospitalComment on above:Performed By: #### CBCTrang, BMP ####[facility] ([id number])[address], [address] [place] [address]Kpqtkqglmbu (Bld) [#/Vol]24.2 10*3/uLHigh1.5-6.6[facility] Comment on above:Performed By: #### CBCA, BMP ####[facility] ([id number])[address], [address] [place] [address] 497[address]Lsjesies mean volume (Bld) [Entitic vol]8.5 fLNormal7-12Pro[facility] HospitalComment on above:Performed By: #### CBCA, BMP ####[facility] ([id number])[address], [address] [place] [address]Odhnojkig (Bld) [#/Vol]420 10*3/vLZfxslq262-824 [facility] HospitalComment on above:Performed By: #### CBCA, BMP ####[facility] ([id number])[address], [address] [place] [address]VFE COUNT4.45 X10E12/LNormal4.10-5.70Pro[facility] HospitalComment on above:Performed By: #### CBCA, BMP ####[facility] ([id number])[address], [address] [place] [address] 324[address]NCU morphology finding Nom (Bld)NORMALNormalProMedica Terrell HospitalComment on above:Performed By: #### CBCTrang, BMP ####[facility] ([id number])[address], [address] [place] [address]DHA KHTSLDLMNM34.0 %NormalProMedica Terrell HospitalComment on above:Performed By: #### CBCA, BMP ####[facility] ([id number])[address], [address] [place] [address]XVW (Bld) [#/Vol]30.7 10*3/uLHigh4.0-11.0Pro[facility]ica [facility] HospitalComment on above:Performed By: #### CBCA, BMP ####[facility] ([id number])[address], [address] [place] [address]HO CHEST WO CONTon 58-93-3698RW CHEST WO CONTNormalProMedica Terrell HospitalPOTASSIUMon 69-33-7467Dxavwwasd [Moles/Vol]4.1 mmol/LNormal 3.5-5.0Pro[facility]ica [facility] HospitalComment on above:Performed By: #### 2823-3 ####[facility] ([id number])[address] [address] [place] [address] 47[address]WYZLV METABOLIC PANLon 95-09-5835Mhfkz gap [Moles/Vol]10 mmol/LNormal5-15 [facility] HospitalComment on above:Performed By: #### CBCA, BMP ####[facility] ([id number])[address] [address] [place] [address]Yefsudu [Mass/Vol]10.0 mg/dLNormal8.5-10.5ProMedica [facility] HospitalComment on above:Performed By: #### CBCA, BMP ####[facility] ([id number])[address] [address], [place] [address]Vgelmlut [Moles/Vol]85 mmol/STlf43-039YynXdcckz [place] HospitalComment on above:Performed By: #### OG BMP ####[facility] ([id number])[address] [address] [place] [address] 339[address]EX1 [Moles/Vol]40 mmol/YZajo28-34TbaKoklpi [facility] Comment on above:Performed By: #### OG, BMP ####[facility] ([id number])[address] [address] [place] [address] 10[address]Sdyirwzomq [Mass/Vol]0.62 mg/dLNormal0.60-1.30ProCincinnati Shriners HospitalComment on above:Result Comment: METHOD TRACEABLE TO IDMS STANDARDPerformed By: #### OG BMP ####[facility] ([id number])[address] [address] [place] [address] 12128sYQR (CKD-EPI) NON-RACE DEPENDENT>90Normal>59ProCincinnati Shriners HospitalComment on above:Result Comment: Reported eGFR is based on theCKD-EPI 2020 equation that doesnot use a race coefficient.Performed By: #### OG, BMP ####[facility] ([id number])[address] [address] [place] [address] 390[address]Spvirat [Mass/Vol]126 mg/gUNmcb78-36AaaDxacgp [place] HospitalComment on above:Performed By: #### OG, BMP ####[facility] ([id number])[address] [address] [place] [address] 703[address]Qjzejkyqb [Moles/Vol]3.7 mmol/LNormal3.5-5.0ProP[facility] Hospital HospitalComment on above:Performed By: #### OG, BMP ####[facility] ([id number])[address] [place] [address]Vjvjks [Moles/Vol]135 mmol/WCpzsoe480-486KzuBaapaf [facility] HospitalComment on above: Performed By: #### CBCTrang, BMP ####[facility] ([id number])[address] [place], [place] [address]Rpxz nitrogen [Mass/Vol]33 mg/dLHigh5-27 ProMPremier Health [facility] HospitalComment on above:Performed By: #### CBCTrang, BMP ####[facility] ([id number])[address], [place] [address]ZGO AND AUTO DIFFon 21-77-7370Zziw form neutrophils/100 WBC (Bld)3.0 % NormalProPomerene Hospital HospitalComment on above:Performed By: #### CBCTrang, BMP ####[facility] ([id number])[address], [address] [place] [address]Kmozmgpfgdg (Bld) [#/Vol]0.3 10*3/uLNormal0.0-0.4[facility] Hospital Comment on above:Performed By: #### CBCTrang, BMP ####[facility] ([id number])[address], [place] [address]Bjiugrtuxsp/100 WBC (Bld) 1.0 %NormalProBlanchard Valley Health System [facility] Hospitalca [facility] HospitalComment on above:Performed By: #### CBCTrang, BMP ####[facility] ([id number])[address] [place], [place] [address]Mauplzgsuyg distribution width (RBC) [Ratio]17.3 %High11.5-15.0 [facility] HospitalComment on above:Performed By: #### CBCA, BMP ####[facility] ([id number])[address], [address] [place] [place] [address]Dahqdjkvfu (Bld) [Volume fraction]41.6 %Mxbyrf13-43XomKdphfc [facility] HospitalComment on above:Performed By: #### CBCA, BMP ####[facility] ([id number])[address], [address] [place] [address]Fhhxorxvas (Bld) [Mass/Vol]13.8 g/dLFahfgj14.0-17.0[facility] HospitalComment on above: Performed By: #### CBCA, BMP ####[facility] ([id number])[address], [address] [place] [address]Tqnqvkeivzn (Bld) [#/Vol]3.8 10*3/uLHigh 1.0-3.5[facility] HospitalComment on above:Performed By: #### CBCA, BMP ####[facility] ([id number])[address], [address] [place] [address]Vfqfflmxwyu/100 WBC (Bld)13.0 %NormalProMedica Terrell HospitalComment on above:Performed By: #### CBCA, BMP ####[facility] ([id number])[address], [address] [place] [address]ZLW (RBC) [Entitic mass] 30.1 lwVhegoq84-57EjoAuqfhf [facility] HospitalComment on above:Performed By: #### CBCA, BMP ####[facility] ([id number])[address], [address] [place] [address]AVID (RBC) [Mass/Vol]33.1 g/oKSxdjhx38-82ApaPysdsf [facility] HospitalComment on above:Performed By: #### CBCA, BMP ####[facility] ([id number])[address], [address] [place] [address]QYJ (RBC) [Entitic vol]91 pCPgyzha38-311EwfYpobdd [facility] HospitalComment on above: Performed By: #### CBCA, BMP ####[facility] ([id number])[address], [address] [place], [place] [address]Nuvcbvpqr (Bld) [#/Vol]2.1 10*3/uLHigh0-0.9 ProMmonroe county hospitala [facility] HospitalComment on above:Performed By: #### CBCA, BMP ####[facility] ([id number])[address], [address], [place] [address]Bqljxzybb/100 WBC (Bld)7.0 %NormalProBlanchard Valley Health System [facility] Hospitalca [facility] HospitalComment on above:Performed By: #### CBCA, BMP ####[facility] ([id number])[address], [address], [place] [address]LJCVENXFN6.0 %Normal [facility] HospitalComment on above:Performed By: #### CBCA, BMP ####[facility] ([id number])[address], [address] [place] [address]Nkuurwwaioh (Bld) [#/Vol]22.9 10*3/uLHigh1.5-6.6ProBlanchard Valley Health System [facility] Comment on above:Performed By: #### CBCA, BMP ####[facility] ([id number])[address], [address], [place] [address]Xxjjoffw mean volume (Bld) [Entitic vol]8.4 fLNormal7-12[facility] HospitalComment on above:Performed By: #### CBCA, BMP ####[facility] ([id number])[address], [address], [place] [address]Etohsbtnr (Bld) [#/Vol]426 10*3/cHRffcee352-913 [facility] HospitalComment on above:Performed By: #### CBCA, BMP ####[facility] ([id number])[address], [address], [place] [address]PMH COUNT4.57 X10E12/LNormal4.10-5.70[facility]rell HospitalComment on above:Performed By: #### OG, BMP ####[facility] ([id number])[address], [address] [place] [address]NBZ morphology finding Nom (Bld)NORMALNormalProMedica Terrell HospitalComment on above:Performed By: #### CBCTrang, BMP ####[facility] ([id number])[address], [address] [place] [address]ABN YQJDUTBHIM98.0 %NormalProMedica Terrell HospitalComment on above:Performed By: #### GO, BMP ####[facility] ([id number])[address], [address] [place] [address] 41560QUQ (Bld) [#/Vol]29.4 10*3/uLHigh4.0-11.0[facility]rell HospitalComment on above:Performed By: #### CBCTrang, BMP ####[facility] ([id number])[address], [address] [place] [address] 63296ZQQLQ METABOLIC PANLon 10-21-0598Imfvt gap [Moles/Vol]8 mmol/LNormal5-15Pro[facility]rell HospitalComment on above:Performed By: #### OG, BMP ####[facility] ([id number])[address], [address] [place] [address] 84917Ffnucbr [Mass/Vol]9.7 mg/dLNormal8.5-10.5Pro[facility]ica [facility]rell HospitalComment on above:Performed By: #### CBCTrang, BMP ####[facility] ([id number])[address], [address] [place] [address] 67217Trutfcyf [Moles/Vol]87 mmol/TDtb00-281OlxLtksoz [facility] HospitalComment on above:Performed By: #### CBCTrang, BMP ####[facility] ([id number])[address] [address], [place] [address]BQ6 [Moles/Vol]37 mmol/PKieq29-89HqrHzitnt [facility] HospitalComment on above:Performed By: #### OG, BMP ####[facility] ([id number])[address] [address]Gsbuitrwst [Mass/Vol]0.54 mg/dLLow0.60-1.30Pro[facility] Hospital HospitalComment on above:Result Comment: METHOD TRACEABLE TO IDMS STANDARDPerformed By: #### OG, BMP ####[facility] ([id number])[address] [address]uZHX (CKD-EPI) NON-RACE DEPENDENT>90Normal>59[facility] Comment on above:Result Comment: Reported eGFR is based on theCKD-EPI 2020 equation that doesnot use a race coefficient.Performed By: #### OG, BMP ####[facility] ([id number])[address] [address]Ybjosai [Mass/Vol]143 mg/qBQpry18-58ZzxUrkujz [place] HospitalComment on above:Performed By: #### OG, BMP ####[facility] ([id number])[address] [address]Giktrryyr [Moles/Vol]3.9 mmol/LNormal3.5-5.0ProP[facility] Hospital HospitalComment on above:Performed By: #### OG, BMP ####[facility] ([id number])[address] [address]Pdbpmn [Moles/Vol]132 mmol/ROua327-111OcfMycjhi [place] HospitalComment on above:Performed By: #### OG, BMP ####[facility] ([id number])[address] [place] [address]Tndr nitrogen [Mass/Vol]26 mg/dLNormal5-27Pro[facility]ica [facility]rell HospitalComment on above:Performed By: #### CBCTrang, BMP ####[facility] ([id number])[address], [address], [place] [address]XDV AND AUTO DIFFon 96-54-9927Vsaqmrfxxev distribution width (RBC) [Ratio]17.0 %High11.5-15.0Pro[facility]ica Terrell HospitalComment on above: Performed By: #### CBCA, BMP ####[facility] ([id number])[address], [address] [place] [address] 22644Przrwqqlhg (Bld) [Volume fraction]40.2 % Mnjufy07-58ZraGhnucc [facility] HospitalComment on above:Performed By: #### CBCA, BMP ####[facility] ([id number])[address], [address], [place] [address]Mpcxsrhaga (Bld) [Mass/Vol]13.1 g/sSPtsjqp87.0-17.0[facility] HospitalComment on above:Performed By: #### CBCA, BMP ####[facility] ([id number])[address], [address] [place] [address] 08732ZQHAECKYAO, ATYPICAL1.0 %NormalProMedica Terrell HospitalComment on above:Performed By: #### CBCA, BMP ####[facility] ([id number])[address], [address] [place] [address] 92112Zjsjktsknlo (Bld) [#/Vol]2.5 10*3/uLNormal1.0-3.5Pro[facility] HospitalComment on above:Performed By: #### CBCA, BMP ####[facility] ([id number])[address], [address] [place] [address] 26321 Lymphocytes/100 WBC (Bld)7.7 %NormalProMedica Terrell HospitalComment on above: Performed By: #### CBCA, BMP ####[facility] ([id number])[address], [address] [place] [address] 88109ZXQ (RBC) [Entitic mass]29.6 wmTnytul88-07 [facility] HospitalComment on above:Performed By: #### CBCA, BMP ####[facility] ([id number])[address], [address], [place] [address]DGQW (RBC) [Mass/Vol]32.6 g/eJHbgimk57-10NnmHwaztj [facility] HospitalComment on above:Performed By: #### CBCA, BMP ####[facility] ([id number])[address], [address] [place] [address] 90522ZAN (RBC) [Entitic vol]91 eZArpgqd24-166XunKjptwl [facility] HospitalComment on above:Performed By: #### CBCA, BMP ####[facility] ([id number])[address], [address], [place] [address]Xqvkezhpw (Bld) [#/Vol]3.3 10*3/uLHigh0-0.9[facility] HospitalComment on above:Performed By: #### CBCA, BMP ####[facility] ([id number])[address], [address], [place] [address]Gezvpxvks/100 WBC (Bld)11.5 %NormalProMedica Terrell HospitalComment on above:Performed By: #### CBCA, BMP ####[facility] ([id number])[address], [address] [place] [address] 26693Jbtctbfcmkt (Bld) [#/Vol]23.1 10*3/uLHigh1.5-6.6 [facility] HospitalComment on above:Performed By: #### CBCA, BMP ####[facility] ([id number])[address], [address], [place] [address]Vocwprnv mean volume (Bld) [Entitic vol]8.4 fLNormal7-12[facility] HospitalComment on above:Performed By: #### CBCTrang, BMP ####[facility] ([id number])[address], [address], [place] [address]Rpsotvecd (Bld) [#/Vol]457 10*3/kMTdsy583-187EgfQkeqrp [facility] HospitalComment on above:Performed By: #### CBCTrang, BMP ####[facility] ([id number])[address], [place] [address]BWEZEXRBKCHTM1+AbnormalNONEProMedica [facility] Hospital Comment on above:Performed By: #### OG, BMP ####[facility] ([id number])[address], [place] [address]JUU COUNT4.42 X10E12/L Normal4.10-5.70Pro[facility]rell HospitalComment on above:Performed By: #### OG, BMP ####[facility] ([id number])[address], [place] [address]AHQ SQZHEGKWLU69.8 %NormalProMedica Terrell HospitalComment on above:Performed By: #### CBCTrang, BMP ####[facility] ([id number])[address], [address] [place], [place] [address]OIQUSY7+AbnormalNONE [facility] HospitalComment on above:Performed By: #### CBCTrang, BMP ####[facility] ([id number])[address], [address] [place], [place] [address]KHU (Bld) [#/Vol]28.9 10*3/uLHigh4.0-11.0[facility] HospitalComment on above:Performed By: #### CBCA, BMP ####[facility] ([id number])[address] [place] [address]VXVMPCYGAij 07-03-2023 Magnesium [Mass/Vol]2.3 mg/dLNormal1.8-2.6[facility] HospitalComment on above:Performed By: #### 99454-1 ####[facility] ([id number])[address] [place], [place] [address]OBEMQJXG BLOOD GASon 57-98-7286ZGOLK'S TESTPassNormalProMedica Terrell HospitalComment on above: Performed By: #### ABG ####[facility] ([id number])[address] [place], [place] [address]Qgpc excess Calc (Bld) [Moles/Vol]16.0 mmol/LHigh0.0-2.0 [facility]ger HospitalComment on above:Performed By: #### ABG ####[facility] ([id number])[address] [place], [place] [address]Hqyl edmflbxouqm38.6 [degF]Gyoquk91.0Pro[facility] HospitalComment on above: Performed By: #### ABG ####[facility] ([id number])[address] [place], [place] [address]CVP0 (Bld) [Moles/Vol]42.1 mmol/KKdwd26-11HvkJigcju [facility] HospitalComment on above:Performed By: #### ABG ####[facility] ([id number])[address] [place], [place] [address]HASC. O2 CONC.1 %NormalProMedica Terrell HospitalComment on above:Performed By: #### ABG ####[facility] ([id number])[address] [place], [place] [address]Kcvbei (Bld) [Partial pressure]65 mm[Hg]Muj63-923KwoZuihhx [facility] HospitalComment on above:Performed By: #### ABG ####[facility] ([id number])[address] [place] [address]Eliuse saturation in Blood94.0 %Normal>90Pro[facility] Comment on above:Performed By: #### ABG ####[facility] ([id number])[address] [place] [address]WPCFFE SOURCENCNormalProBlanchard [facility] Health System [facility] Hospitalca [facility] HospitalComment on above:Performed By: #### ABG ####[facility] ([address] [place] [address])[address] [place] [address] 33248KCK624.2 NPCJVjwl98-40 [facility] HospitalComment on above:Performed By: #### ABG ####[facility] ([address] [place] [address])[address] [place] [address] 46230cR (Bld)7.507 [pH]High7.350-7.450[facility] HospitalComment on above:Performed By: #### ABG ####[facility] ([id number])[address] [place] [address] SAMPLE SITERRadNormalProPomerene Hospital HospitalComment on above:Performed By: #### ABG ####[facility] ([id number])[address] [place] [address]FTMMZO TYPEARTERIALNormalProPomerene Hospital HospitalComment on above: Performed By: #### ABG ####[facility] ([id number])[address] [place] [address]EZHJK METABOLIC PANLon 83-05-0715Arnjk gap [Moles/Vol]8 mmol/LNormal5-15ProBlanchard Valley Health System [facility] Hospitalca [facility] HospitalComment on above:Performed By: #### CBCA, BMP, 57436-3, 2777-1 ####[facility] ([id number])[address] [address] [place] [address]Cmocdxc [Mass/Vol]9.7 mg/dLNormal8.5-10.5 [facility] HospitalComment on above:Performed By: #### ISELA FOLEY, , 2776-03 ####[facility] ([id number])[address] [place] [address]Lmdxlqbr [Moles/Vol]88 mmol/QIby19-192BxlRvprcd [place] HospitalComment on above:Performed By: #### ISELA FOLEY, , 2776-03 ####[facility] ([id number])[address] [address], [place] [address]WR8 [Moles/Vol]40 mmol/ROqvn30-29ZqkVpwpht [facility] HospitalComment on above:Performed By: #### ISELA FOLEY, , 2776-03 ####[facility] ([id number])[address] [address] [place], [place] [address]Qryrtlhepp [Mass/Vol] 0.50 mg/dLLow0.60-1.30ProC[facility]innati Shriners HospitalComment on above:Result Comment: METHOD TRACEABLE TO IDMS STANDARDPerformed By: #### ISELA FOLEY, , 2776-03 ####[facility] ([id number])[address] [address], [place] [address]xPOP (CKD-EPI) NON-RACE DEPENDENT>90Normal>59[facility] Comment on above:Result Comment: Reported eGFR is based on theCKD-EPI 2020 equation that doesnot use a race coefficient.Performed By: #### ISELA FOLEY, , 2776-03 ####[facility] ([id number])[address] [address], [place] [address]Wityiyd [Mass/Vol]105 mg/aDQfsh94-99AgwAjxzsbCincinnati Shriners HospitalComment on above:Performed By: #### ISELA FOLEY, , 2776-03 ####[facility] ([id number])[address], [address] [place] [address]Hevbjvidx [Moles/Vol]4.1 mmol/LNormal3.5-5.0[facility] Comment on above:Performed By: #### ISELA FOLEY, , 2776-03 ####[facility] ([id number])[address], [place] [address] Sodium [Moles/Vol]136 mmol/VXqnalu279-758XcsMmvdiu [place] HospitalComment on above:Performed By: #### ISELA FOLEY, , 2776-03 ####[facility] ([id number])[address], [address] [place] [address] 807[address]Ywxx nitrogen [Mass/Vol]24 mg/dLNormal5-27ProCincinnati Shriners HospitalComment on above:Performed By: #### ISELA FOLEY, , 2776-03 ####[facility] ([id number])[address], [address] [place] [address] 35[address]IZX AND AUTO DIFFon 26-35-5292UECXMNNQ BASOPHIL0.1 X10E9/LNormal0.0-0.2PNationwide Children's Hospital Comment on above:Performed By: #### OG, ISELA, , 2776-03 ####[facility] ([id number])[address], [place] [address] ABSOLUTE EHILCDUYDD47.7 X10E9/LHigh1.5-6.6[facility] Health SystemComment on above:Performed By: #### ISELA FOLEY, , 2776-03 ####[facility] ([id number])[address], [address], [place] [address]Llvyyuwpv/100 WBC (Bld)0.5 %NormalProPomerene Hospital HospitalComment on above:Performed By: #### ISELA FOLEY, , 2776-03 ####[facility] ([id number])[address], [address] [place] [address] 36[address]Dmxdschbbmk (Bld) [#/Vol]0.0 10*3/uLNormal 0.0-0.4Pro[facility] HospitalComment on above:Performed By: #### OG, ISELA, , 2776-03 ####[facility] ([id number])[address], [place] [address]Odidwcamuth/100 WBC (Bld)0.1 %NormalProPomerene Hospital HospitalComment on above:Performed By: #### ISELA FOLEY, , 2776-03 ####[facility] ([id number])[address], [address] [place] [address] 30[address]Vtbbbjmepze distribution width (RBC) [Ratio]16.8 %High11.5-15.0Pro[facility] HospitalComment on above:Performed By: #### OG, ISELA, , 2776-03 ####[facility] ([id number])[address] [address] [place] [address] 87[address]Wvvdsodhkz (Bld) [Volume fraction]39.2 %Qcjnqw67-24VglBmuzve [place] HospitalComment on above:Performed By: #### CBCTrang, ISELA, , 2776-03 ####[facility] ([id number])[address] [address] [place] [address] 240[address]Hvkhcfohps (Bld) [Mass/Vol]12.9 g/dLLow13.0-17.0[facility] Comment on above:Performed By: #### CBCTrang, ISELA, , 2776-03 ####[facility] ([id number])[address], [address] [place] [address] 8[address] Lymphocytes (Bld) [#/Vol]2.7 10*3/uLNormal1.0-3.5PNationwide Children's Hospital Comment on above:Performed By: #### CBCTrang, ISELA, , 2776-03 ####[facility] ([id number])[address], [address] [place] [address] 41078 Lymphocytes/100 WBC (Bld)10.1 %NormalProPomerene Hospital HospitalComment on above: Performed By: #### OG, BMP, , 2776-03 ####[facility] ([id number])[address], [address] [place] [address] 994[address]MQB (RBC) [Entitic mass] 29.6 bgXezqun49-20JlmWnrexl [facility] HospitalComment on above:Performed By: #### CBCTrang, ISELA, , 2776-03 ####[facility] ([id number])[address], [address] [place] [address] 840[address]QKHJ (RBC) [Mass/Vol]32.8 g/lVWgonfi42-04 [facility] HospitalComment on above:Performed By: #### OG, ISELA, , 2776-03 ####[facility] ([id number])[address], [address] [place] [address] 16419BEW (RBC) [Entitic vol]90 mCBhzxpw82-299FipLwbapo [place] HospitalComment on above:Performed By: #### CBCTrang, BMP, , 2776-03 ####[facility] ([id number])[address], [address] [place] [address] 15242Pygbzerqd (Bld) [#/Vol]4.3 10*3/uLHigh0-0.9ProBlanchard [facility] Hospitalca [facility] HospitalComment on above:Performed By: #### CBCA, BMP, , 2776-03 ####[facility] ([id number])[address] [place] [address]Pdbvfozat/100 WBC (Bld)16.0 %NormalProMedica Terrell HospitalComment on above:Performed By: #### CBCA, BMP, , 2776-03 ####[facility] ([id number])[address], [place] [address]Eoscoomlcfy/100 WBC (Bld) 73.3 %NormalProMedica Terrell HospitalComment on above:Performed By: #### CBCA, BMP, , 2776-03 ####[facility] ([id number])[address] [place], [place] [address]Jornhbzk mean volume (Bld) [Entitic vol]8.3 fL Normal7-12Pro[facility] HospitalComment on above:Performed By: #### CBCA, BMP, , 2776-03 ####[facility] ([id number])[address], [place] [address]Snzhjptpa (Bld) [#/Vol]468 10*3/uHCasf637-514 [facility] HospitalComment on above:Performed By: #### CBCA, BMP, , 2776-03 ####[facility] ([id number])[address] [place], [place] [address]AXV COUNT4.34 X10E12/LNormal4.10-5.70[facility] HospitalComment on above:Performed By: #### CBCA, BMP, , 2776-03 ####[facility] ([id number])[address], [address], [place] [address]LDB (Bld) [#/Vol]26.9 10*3/uLHigh4.0-11.0ProCincinnati Shriners HospitalComment on above:Performed By: #### ISELA FOLEY, , 2776-03 ####[facility] ([id number])[address], [address] [place] [address] 58[address]Euixwh D-dimer DDU (PPP) [Mass/Vol]on 07-02-2023 ZPMMI9102 ng/mL DDUHigh<255ProCincinnati Shriners HospitalComment on above:Result Comment: Results >=255ng/mL DDU: Results may beindicative of the presence of VTE. The useof the Wells score and further diagnostictests should be considered. Elevated D-Dimerlevels can alsobe associated with DIC,neoplasm, , trauma and liver disease.Elevated levels of rheumatoid factor may leadto an overestimation of the D-Dimer level. Performed By: #### 60119-0 ####[facility] ([id number])[address], [address] [place] [address] 25[address]SBQXNBTCKtk 92-24-9144Sdgjifymp [Mass/Vol] 1.7 mg/dLLow1.8-2.6ProCincinnati Shriners HospitalComment on above:Performed By: #### ISELA FOLEY, , 2776-03 ####[facility] ([id number])[address], [address] [place] [address] 702[address]EYGINXVGTVpx 09-28-6442Biscstpzx [Mass/Vol] 3.4 mg/dLNormal2.4-4.9ProCincinnati Shriners HospitalComment on above:Performed By: #### ISELA FOLEY, , 2776-03 ####[facility] ([id number])[address] [place] [address] 41300RQ CHEST 1 VWon 07-02-2023 XR CHEST 1 VWNormalProCincinnati Shriners HospitalBASIC METABOLIC PANLon 07-01-2023 Anion gap [Moles/Vol]10 mmol/LNormal5-15[facility] HospitalComment on above:Performed By: #### OG, BMP ####[facility] ([id number])[address] [address], [place] [address]Yrbrzse [Mass/Vol]10.1 mg/dLNormal8.5-10.5Pro[facility] HospitalComment on above:Performed By: #### OG, BMP ####[facility] ([id number])[address], [place] [address]Sbtigvkr [Moles/Vol]87 mmol/XDsf55-644VvaHhhhub [facility] HospitalComment on above:Performed By: #### OG, BMP ####[facility] ([id number])[address] [address] [place] [address] 43[address]NM8 [Moles/Vol] 39 mmol/GYfms13-26FcxEofkny [place] HospitalComment on above:Performed By: #### OG, BMP ####[facility] ([id number])[address] [address] [place] [address] 245[address]Bjhtodutxa [Mass/Vol]0.55 mg/dLLow0.60-1.30ProBlanchard Valley Health [facility] Hospitalca [facility] HospitalComment on above:Result Comment: METHOD TRACEABLE TO IDMS STANDARD Performed By: #### OG, BMP ####[facility] ([id number])[address] [address] [place] [address] 35760wHLL (CKD-EPI) NON-RACE DEPENDENT>90Normal >59Pro[facility]ica [facility] HospitalComment on above:Result Comment: Reported eGFR is based on theCKD-EPI 2020 equation that doesnot use a race coefficient.Performed By: #### OG, BMP ####[facility] ([id number])[address] [address] [place] [address] 86[address]Bbrelrr [Mass/Vol]82 mg/hXMdxslu99-72RjoLvnvrs [facility] HospitalComment on above:Performed By: #### CBCA, BMP ####[facility] ([id number])[address], [address] [place] [address] 75[address]Ijavdvrzq [Moles/Vol]3.8 mmol/LNormal3.5-5.0[facility] HospitalComment on above: Performed By: #### CBCA, BMP ####[facility] ([id number])[address], [place] [address]Ssignz [Moles/Vol]136 mmol/VUaaqif183-243 [facility] HospitalComment on above:Performed By: #### CBCA, BMP ####[facility] ([id number])[address], [address] [place] [address] 66[address]Ymdr nitrogen [Mass/Vol]22 mg/dLNormal5-27Pro[facility] HospitalComment on above:Performed By: #### CBCA, BMP ####[facility] ([id number])[address], [address] [place] [address] 02319NQZ AND AUTO DIFFon 17-04-5905Bcsd form neutrophils/100 WBC (Bld)1.0 %NormalProMedica Terrell HospitalComment on above:Performed By: #### CBCA, BMP ####[facility] ([id number])[address], [address] [place] [address]27[address]Vcfckzrkmwl (Bld) [#/Vol]0.2 10*3/uLNormal0.0-0.4Pro[facility] HospitalComment on above: Performed By: #### CBCA, BMP ####[facility] ([id number])[address], [address] [place] [address]6628Dlvjarxgofy/100 WBC (Bld)1.0 %Normal [facility] HospitalComment on above:Performed By: #### CBCA, BMP ####[facility] ([id number])[address], [address], [place] [address]Omlmalhbqpl distribution width (RBC) [Ratio]17.3 %High11.5-15.0Pro[facility] Hospital HospitalComment on above:Performed By: #### CBCA, BMP ####[facility] ([id number])[address], [address], [place] [address]Rdcpbgshle (Bld) [Volume fraction]41.6 %Twylil47-98HicSjamkt [place] HospitalComment on above:Performed By: #### CBCA, BMP ####[facility] ([id number])[address], [address], [place] [address]Kdfvtlkpft (Bld) [Mass/Vol] 13.5 g/nBWxclcz86.0-17.0Pro[facility] HospitalComment on above:Performed By: #### CBCA, BMP ####[facility] ([id number])[address] [address], [place] [address]Hnpgjkaakvn (Bld) [#/Vol]1.7 10*3/uLNormal1.0-3.5 [facility] HospitalComment on above:Performed By: #### CBCA, BMP ####[facility] ([id number])[address] [address], [place] [address]Wsoipwfntnt/100 WBC (Bld)7.0 %NormalProPomerene Hospital HospitalComment on above:Performed By: #### CBCA, BMP ####[facility] ([id number])[address], [address], [place] [address]CNU (RBC) [Entitic mass] 29.7 saElzomg18-83IkqJrmwjh [place] HospitalComment on above:Performed By: #### CBCA, BMP ####[facility] ([id number])[address], [address], [place] [address]AIKW (RBC) [Mass/Vol]32.4 g/mUMhqdyh52-15AjnIvuupd Terrell HospitalComment on above:Performed By: #### CBCA, BMP ####[facility] ([id number])[address], [address] [place] [address]QNN (RBC) [Entitic vol]92 hXJioaao40-739DyjUyxhco [facility]rell HospitalComment on above: Performed By: #### CBCA, BMP ####[facility] ([id number])[address], [address] [place] [address]Fqritkmwc (Bld) [#/Vol]3.4 10*3/uLHigh0-0.9 [facility] HospitalComment on above:Performed By: #### CBCA, BMP ####[facility] ([id number])[address], [address] [place] [address] 30[address]Xvcjkaaje/100 WBC (Bld)14.0 %NormalProMedica Terrell HospitalComment on above:Performed By: #### CBCA, BMP ####[facility] ([id number])[address], [address] [place] [address]Ifuuoencupj (Bld) [#/Vol] 19.0 10*3/uLHigh1.5-6.6Pro[facility] HospitalComment on above:Performed By: #### CBCA, BMP ####[facility] ([id number])[address], [address] [place] [address]Offvsxnd mean volume (Bld) [Entitic vol]8.1 fLNormal 7-12[facility] HospitalComment on above:Performed By: #### CBCA, BMP ####[facility] ([id number])[address], [address] [place] [address]Zqmsatwvc (Bld) [#/Vol]499 10*3/nWWkid683-199HbzQgswnb [facility] Comment on above:Performed By: #### CBCA, BMP ####[facility] ([id number])[address], [address] [place] [address]DSPCGHPVJRGIZ4+AbnormalNONE [facility] HospitalComment on above:Performed By: #### CBCA, BMP ####[facility] ([id number])[address], [address] [place] [address]UFE COUNT4.55 X10E12/LNormal4.10-5.70[facility] HospitalComment on above:Performed By: #### CBCTrang, BMP ####[facility] ([id number])[address] [address] [place] [address] 99549ESS UGBHXBWTGI22.0 %Normal [facility] HospitalComment on above:Performed By: #### CBCA, BMP ####[facility] ([id number])[address], [address] [place] [address] 99434SOD (Bld) [#/Vol]24.3 10*3/uLHigh4.0-11.0[facility] SystemComment on above:Performed By: #### CBCA, BMP ####[facility] ([id number])[address], [address] [place] [address] 9[address]HDJ AND AUTO DIFFon 19-00-2595Niicnysoqha distribution width (RBC) [Ratio]16.9 %High11.5-15.0 [facility] SystemComment on above:Performed By: #### CBCA, CMP ####[facility] ([id number])[address], [address] [place] [address] 096[address]Ynmyjyfamk (Bld) [Volume fraction]35.5 %Pvn73-32MblOvgudoMemorial Health System Comment on above:Performed By: #### CBCA, CMP ####[facility] ([id number])[address], [place] [address]Pmyboclrwi (Bld) [Mass/Vol] 11.6 g/dLLow13.0-17.0[facility] HospitalComment on above:Performed By: #### CBCA, CMP ####[facility] ([id number])[address], [address], [place] [address]Ruxdumrmtqt (Bld) [#/Vol]3.1 10*3/uLNormal1.0-3.5 [facility] HospitalComment on above:Performed By: #### CBCA, CMP ####[facility] ([id number])[address], [place] [address]Btskdjsouof/100 WBC (Bld)13.0 %NormalProMedica Hilger HospitalComment on above:Performed By: #### CBCA, CMP ####[facility] ([id number])[address], [place] [address]UWY (RBC) [Entitic mass] 29.9 mdSjigbs18-37BfbEbzbgs [facility] HospitalComment on above:Performed By: #### CBCA, CMP ####[facility] ([id number])[address], [address], [place] [address]DKLE (RBC) [Mass/Vol]32.7 g/rQKaoljd59-87RzjRhtyus [facility] HospitalComment on above:Performed By: #### CBCA, CMP ####[facility] ([id number])[address], [address], [place] [address]IKK (RBC) [Entitic vol]92 dVDordiv08-918EqkCqmjyp [facility] HospitalComment on above: Performed By: #### CBCA, CMP ####[facility] ([id number])[address], [address], [place] [address]Geciqubxq (Bld) [#/Vol]2.4 10*3/uLHigh0-0.9 [facility] HospitalComment on above:Performed By: #### CBCA, CMP ####[facility] ([id number])[address], [address] [place] [address]Sqmgmirox/100 WBC (Bld)10.0 %NormalProMedica Terrell HospitalComment on above:Performed By: #### CBCA, CMP ####[facility] ([id number])[address], [address] [place] [address]JZMBNDTVP2.0 %Normal [facility] HospitalComment on above:Performed By: #### CBCA, CMP ####[facility] ([id number])[address], [address], [place] [address]Ekldbvwfbvi (Bld) [#/Vol]17.8 10*3/uLHigh1.5-6.6[facility] Comment on above:Performed By: #### CBCA, CMP ####[facility] ([id number])[address], [address] [place] [address]Ivmyclnt mean volume (Bld) [Entitic vol]8.1 fLNormal7-12[facility] HospitalComment on above:Performed By: #### CBCA, CMP ####[facility] ([id number])[address], [address] [place] [place] [address]Hvpnlujap (Bld) [#/Vol]475 10*3/aLXnrk775-180JhzXxsqsg [facility] HospitalComment on above:Performed By: #### CBCA, CMP ####[facility] ([id number])[address], [address] [place], [place] [address]CGOJITYFUZTQW 1+AbnormalNONEProMedica Terrell HospitalComment on above:Performed By: #### CBCA, CMP ####[facility] ([id number])[address], [address] [place], [place] [address]HER COUNT3.88 X10E12/LLow4.10-5.70[facility] Comment on above:Performed By: #### CBCTrang, CMP ####[facility] ([id number])[address] [place] [place] [address]RFC AVREJYQUMY15.0 %Normal [facility] HospitalComment on above:Performed By: #### CBCA, CMP ####[facility] ([id number])[address], [place] [address]VAC (Bld) [#/Vol]23.8 10*3/uLHigh4.0-11.0ProCincinnati Shriners HospitalComment on above:Performed By: #### CBCTrang, CMP ####[facility] ([id number])[address], [address], [place] [address]NPAINAQQZQMZR METABOLIC PANELon 60-92-0560Oiyhzla [Mass/Vol]2.3 g/dLLow3.2-5.3PNationwide [facility]'s [facility] Comment on above:Performed By: #### CBCTrang, CMP ####[facility] ([id number])[address], [address] [place] [place] [address]HNE [Catalytic activity/Vol]95 U/WRkslhi12-581EerTjdoos [place] HospitalComment on above: Performed By: #### CBCA, CMP ####[facility] ([id number])[address], [address] [place] [place] [address]JQF [Catalytic activity/Vol]22 U/LNormal0-40 [facility] HospitalComment on above:Performed By: #### CBCA, CMP ####[facility] ([id number])[address], [address] [place] [place] [address]Ugpeo gap [Moles/Vol]7 mmol/LNormal5-15[facility] HospitalComment on above:Performed By: #### CBCTrang, CMP ####[facility] ([id number])[address], [address], [place] [address]EJH [Catalytic activity/Vol]17 U/LNormal0-41[facility] HospitalComment on above:Performed By: #### CBCA, CMP ####[facility] ([id number])[address], [address], [place] [address]Oyxqmwbsp [Mass/Vol]0.6 mg/dLNormal0.3-1.2[facility] HospitalComment on above:Performed By: #### CBCTrang, CMP ####[facility] ([id number])[address], [address] [place] [place] [address]Ntwooaf [Mass/Vol]9.1 mg/dLNormal8.5-10.5[facility] HospitalComment on above: Performed By: #### CBCTrang, CMP ####[facility] ([id number])[address], [address] [place] [place] [address]Otiftldx [Moles/Vol]95 mmol/OXrz26-549 [facility] HospitalComment on above:Performed By: #### CBCA, CMP ####[facility] ([id number])[address], [address] [place] [place] [address]GI2 [Moles/Vol]36 mmol/SDitp46-92LvgTirecn [facility] HospitalComment on above:Performed By: #### CBCA, CMP ####[facility] ([id number])[address], [address], [place] [address]Isstqqtwie [Mass/Vol]0.48 mg/dLLow0.60-1.30[facility] HospitalComment on above:Result Comment: METHOD TRACEABLE TO IDMS STANDARDPerformed By: #### CBCTrang, CMP ####[facility] ([id number])[address], [address], [place] [address]gLSH (CKD-EPI) NON-RACE DEPENDENT>90Normal>59[facility] HospitalComment on above:Result Comment: Reported eGFR is based on theCKD-EPI 2020 equation that doesnot use a race coefficient.Performed By: #### OG, CMP ####[facility] ([id number])[address] [address], [place] [address]Wyxxsxj [Mass/Vol]75 mg/aYJwobhl47-41RrgHctiko [place] HospitalComment on above:Performed By: #### OG, CMP ####[facility] ([id number])[address] [address]Aftyqnppd [Moles/Vol]4.1 mmol/LNormal3.5-5.0Pro[facility] HospitalComment on above:Performed By: #### OG, CMP ####[facility] ([id number])[address] [address]Sanbnke [Mass/Vol]5.2 g/dLLow6.0-8.0Pro[facility] HospitalComment on above:Performed By: #### OG, CMP ####[facility] ([id number])[address] [address], [place] [address]Oicqdd [Moles/Vol]138 mmol/RGnnbjq370-129ZazCwobne [place] HospitalComment on above:Performed By: #### CBCTrang, CMP ####[facility] ([id number])[address] [address]Onuq nitrogen [Mass/Vol]15 mg/dLNormal5-27[facility] HospitalComment on above:Performed By: #### CBCA, CMP ####[facility] ([id number])[address] [address], [place] [address]Qaodbdzvmkehz Ag IA Qnon 09-25-3355ZXGGKZIMQUT AG - BLOOD ONLYSee BelowNormalAdena Regional Medical Center on above:Result Comment: NOTETEST [...] Ag,Ser 0.05 Index Value<=0.49 Test Performed By: [place] [address] Diver Helper: Demond Jeff III, M.D. CLIA #[id number]. capsulatum Ag (U) [Mass/Vol]on 82-57-1808NDPUWFVTUGZ ANTIGEN RESULTNot detected NormalNot [facility] on above:Result Comment: NOTENo Histoplasma antigen detected.False negative results may occur. Repeat testing on anew specimen should be considered if clinically indicated. HISTOPLASMA ANTIGEN VALUENot detectedNoCleveland Clinic Luther[facility] on above:Result Comment: NOTE ADDITIONAL INFORMATION This test has been modified from the char conveyor tender cellar'sinstructions. Its performance characteristics weredetermined by [facility] in a manner consistent withCLIA requirements. This test has not been cleared orapproved by the U.S. Food and Drug Administration.Test Performed by:[address] Director: Rey Nunez M.D. Ph.D.; CLIA# [id number] HISTOPLASMA ANTIBODIES BY CF and IDon 09-89-0529EQCLNRQPODU AB,PRECPNot detected NormalNot DetectedAdena Regional Medical Center on above:Result Comment: NOTENo Histoplasma antibodies were detected. This result does notexclude Histoplasma infection.Performed By: [facility] [place] [address]Icdxegutbo Director: Kiko Coon MD, PhDCLIA Number: [id number] MYCELIA,CF<1:8Normal<1:8[facility] on above:Result Comment: NOTEINTERPRETIVE INFORMATION: Histoplasma Mycelia Antibodies by MANAGER DOMESTIC titer of 1:8 orgreater is generally considered presumptiveevidence of histoplasmosis. A titer of 1:32 or greater or risingtiters indicate strong presumptive evidence of histoplasmosis.Cross reactions, usually at lower titers, may occur with otherfungal diseases. HISTOPLASMA YEAST,CF<1:8Normal<1:8[facility] on above: Result Comment: NOTEINTERPRETIVE INFORMATION: Histoplasma Yeast Antibodies by MANAGER DOMESTIC titer of 1:8 or greater is generally considered presumptiveevidence of histoplasmosis. A titer of 1:32 or greater or risingtiters indicate strong presumptive evidence of histoplasmosis.Cross reactions, usually at lower titers, may occur with otherfungal diseases.Reference Lab Test IDon 50-92-5754Sgjyopshg AssaySee BelowNormalAdena Regional Medical Center on above:Result Comment: NOTETEST [...] detected by the assay. Test Performed By: [place] [address]Laboratory Director: Demond Jeff III, M.D. CLIA #[id number] [facility] BelowNormThe Bellevue HospitalComment on above:Result Comment: NOTETEST RESULT FLAG UNIT REF.RANGE Histoplasma Ag 0.00 ng/mL <0.20REPORTABLE RANGE: 2ng/mL - 20.0ng/mL; Results above 20.0ng/mL arereported as Positive, Above the Limit of QuantificationThis test was developed and its performance characteristicsdetermined by [facility]. It has not been clearedor approved by the FDA; however, FDA clearance or approvalis not currently required for clinical use. Theresults arenot intended to be used as the sole means for clinicaldiagnosis or patient management decisions. Test Performed by: [employer] [address] [facility] [place] [address] Diver Helper: Amadeo Novak MD CLIA #[id number] Noteon 57-56-4445Zighpieqb Note [id number]#1.00TIFFNormalMarietta Memorial HospitalCBC AND AUTO DIFFon 67-41-4362Qhgp form neutrophils/100 WBC (Bld)1.0 % NormalMemorial Health SystemComment on above:Performed By: #### CBCA, CMP ####[facility] ([id number])[address], [place] [address]QKIZ1+AbnormalNONEProMedica Hilger HospitalComment on above:Performed By: #### CBCA, CMP ####[facility] ([id number])[address], [address], [place] [address]Hwvgfacphdt distribution width (RBC) [Ratio]17.2 %High 11.5-15.0Pro[facility] HospitalComment on above:Performed By: #### CBCA, CMP ####[facility] ([id number])[address], [address], [place] [address]Zobnatlybj (Bld) [Volume fraction]35.3 %Ube11-12JoiAnlbow [facility] Comment on above:Performed By: #### CBCA, CMP ####[facility] ([id number])[address], [address], [place] [address]Heqvaxsghv (Bld) [Mass/Vol] 11.6 g/dLLow13.0-17.0[facility] HospitalComment on above:Performed By: #### CBCA, CMP ####[facility] ([id number])[address] [address] [place] [address]Xwdldhckufc (Bld) [#/Vol]1.9 10*3/uLNormal1.0-3.5 [facility] HospitalComment on above:Performed By: #### CBCA, CMP ####[facility] ([id number])[address], [place] [address]Zcvqpiurhej/100 WBC (Bld)7.0 %NormalProPomerene Hospital HospitalComment on above:Performed By: #### CBCA, CMP ####[facility] ([id number])[address], [address] [place] [address]PIH (RBC) [Entitic mass] 29.8 qgVgsqke25-07OncYsqkpr [facility] HospitalComment on above:Performed By: #### CBCA, CMP ####[facility] ([id number])[address], [address] [place] [address]CQWV (RBC) [Mass/Vol]32.9 g/zUXrhdpn42-07VveMlpheu [facility] HospitalComment on above:Performed By: #### CBCA, CMP ####[facility] ([id number])[address], [address] [place] [address]LDA (RBC) [Entitic vol]91 dMAirhow61-250QuaNoyaqn [facility] HospitalComment on above: Performed By: #### CBCA, CMP ####[facility] ([id number])[address], [address] [place] [address]Crwdpcryr (Bld) [#/Vol]2.8 10*3/uLHigh0-0.9 [facility] HospitalComment on above:Performed By: #### CBCA, CMP ####[facility] ([id number])[address], [address] [place] [address]Qsmkkqbnn/100 WBC (Bld)10.0 %NormalProMedica Terrell HospitalComment on above:Performed By: #### CBCA, CMP ####[facility] ([id number])[address], [address] [place] [address]Gvdieblgwpx (Bld) [#/Vol] 23.0 10*3/uLHigh1.5-6.6[facility] HospitalComment on above:Performed By: #### CBCA, CMP ####[facility] ([id number])[address], [address] [place] [address]HMRUXTUES2+AbnormalNONEProMedica [facility]rell HospitalComment on above:Performed By: #### CBCA, CMP ####[facility] ([id number])[address], [place] [address]Baoayayc mean volume (Bld) [Entitic vol]8.0 fLNormal7-12[facility] HospitalComment on above:Performed By: #### CBCA, CMP ####[facility] ([id number])[address], [address], [place] [address]Iinmcelyp (Bld) [#/Vol]513 10*3/zGGjpm184-491SiqUbnnng [facility] HospitalComment on above:Performed By: #### CBCA, CMP ####[facility] ([id number])[address], [place] [address]JLI COUNT3.90 X10E12/LLow4.10-5.70[facility] HospitalComment on above:Performed By: #### CBCA, CMP ####[facility] ([id number])[address], [place] [address]DPZ ZJGWYAGEVW70.0 %NormalProBlanchard Valley Health System [facility] Hospitalca [facility] Comment on above:Performed By: #### CBCA, CMP ####[facility] ([id number])[address], [place] [address]ARO (Bld) [#/Vol]27.7 10*3/uLHigh4.0-11.0[facility] HospitalComment on above:Performed By: #### CBCA, CMP ####[facility] ([id number])[address], [address], [place] [address]GSZJXUUBFQEDG METABOLIC PANELon 95-18-1881Qvjwdqo [Mass/Vol] 2.3 g/dLLow3.2-5.3[facility] HospitalComment on above:Performed By: #### CBCA, CMP ####[facility] ([id number])[address], [address], [place] [address]MZE [Catalytic activity/Vol]100 U/WDwbmsl62-703BkcRjxegm [facility] HospitalComment on above:Performed By: #### CBCTrang, CMP ####[facility] ([id number])[address], [address], [place] [address]ISG [Catalytic activity/Vol]23 U/LNormal0-40[facility] HospitalComment on above: Performed By: #### CBCA, CMP ####[facility] ([id number])[address], [place] [address]Ofuql gap [Moles/Vol]8 mmol/LNormal5-15 [facility] HospitalComment on above:Performed By: #### CBCTrang, CMP ####[facility] ([id number])[address], [place] [address]VWT [Catalytic activity/Vol]17 U/LNormal0-41[facility] Comment on above:Performed By: #### CBCTrang, CMP ####[facility] ([id number])[address], [place] [address]Uylztsren [Mass/Vol]0.5 mg/dLNormal0.3-1.2[facility] HospitalComment on above:Performed By: #### CBCTrang, CMP ####[facility] ([id number])[address], [address], [place] [address]Iqomfvr [Mass/Vol]9.0 mg/dLNormal8.5-10.5[facility] HospitalComment on above:Performed By: #### CBCA, CMP ####[facility] ([id number])[address], [place] [address]Vukyrvjt [Moles/Vol]99 mmol/KXxyfjr55-364ZmfKrdynd [facility] HospitalComment on above: Performed By: #### CBCA, CMP ####[facility] ([id number])[address] [place], [place] [address]YM2 [Moles/Vol]31 mmol/ICcyowb69-54JkqIragod [facility] HospitalComment on above:Performed By: #### OG, CMP ####[facility] ([id number])[address] [place] [address] Creatinine [Mass/Vol]0.45 mg/dLLow0.60-1.30[facility] HospitalComment on above:Result Comment: METHOD TRACEABLE TO IDMS STANDARDPerformed By: #### OG, CMP ####[facility] ([id number])[address] [place], [place] [address]rRGX (CKD-EPI) NON-RACE DEPENDENT>90Normal>59Pro[facility] HospitalComment on above:Result Comment: Reported eGFR is based on theCKD-EPI 2020 equation that doesnot use a race coefficient.Performed By: #### OG, CMP ####[facility] ([id number])[address] [address] [place] [address]Jsnuizz [Mass/Vol]112 mg/sINhfc43-89VmpFaksxy [place] HospitalComment on above:Performed By: #### OG, CMP ####[facility] ([id number])[address] [address] [place], [place] [address]Ubarwhajm [Moles/Vol]4.2 mmol/LNormal3.5-5.0[facility] HospitalComment on above:Performed By: #### CBCTrang, CMP ####[facility] ([id number])[address] [address], [place] [address]Deaqtyv [Mass/Vol]5.0 g/dLLow6.0-8.0[facility] Hospital Comment on above:Performed By: #### CBCTrang, CMP ####[facility] ([id number])[address], [address] [place] [address]Iomgva [Moles/Vol]138 mmol/SEzwcej276-180WtxUrrcac [facility] HospitalComment on above:Performed By: #### OG CMP ####[facility] ([id number])[address], [address] [place] [address]Rwxz nitrogen [Mass/Vol]12 mg/dLNormal5-27[facility] HospitalComment on above:Performed By: #### CBCTrang, CMP ####[facility] ([id number])[address], [address] [place] [address]DXAD PATHOGENS/SWQN-DiW-6bx 17-28-1460Mdntiindzaw pathogens DNA and RNA panel DENIS+non-probe (Nph)NormalProBlanchard Valley Health System [facility] Hospitalca [facility] HospitalComment on above:Performed By: #### [address]-9 ####[facility] ([id number])[address], [address] [place] [address]BE CHEST 1 VWon 64-62-5905QR CHEST 1 VWNormalProMedica Hilger HospitalCBC AND AUTO DIFFon 79-40-5902XSXYTKRN BASOPHIL0.1 X10E9/LNormal 0.0-0.2[facility] HospitalComment on above:Performed By: #### MAGALI FOLEY, 2532-0 ####[facility] ([id number])[address], [address] [place] [address]VRKQPJZX MLQDNPENMH28.3 X10E9/LHigh1.5-6.6[facility] HospitalComment on above:Performed By: #### MAGALI FOLEY, 2531-0 ####[facility] ([id number])[address], [address] [place] [address] Basophils/100 WBC (Bld)0.5 %NormalProMedica Hilger HospitalComment on above: Performed By: #### OG CMP, 2531-0 ####[facility] ([id number])[address] [address], [place] [address]Fvookzdyctx (Bld) [#/Vol] 0.0 10*3/uLNormal0.0-0.4[facility] HospitalComment on above:Performed By: #### CBCTrang CMP, 253-0 ####[facility] ([id number])[address] [address], [place] [address]Cmaycqydize/100 WBC (Bld)0.0 %Normal ProMPremier Health [facility]rium [facility] Center HospitalComment on above:Performed By: #### CBCMAGALI Costello, 2531-0 ####[facility] ([id number])[address] [address]Hzohzumzida distribution width (RBC) [Ratio]17.3 %High11.5-15.0[facility] HospitalComment on above:Performed By: #### CBCMAGALI Costello, 2531-0 ####[facility] ([id number])[address] [address], [place] [address] Hematocrit (Bld) [Volume fraction]36.1 %Jaj08-10MajOpqatq [place] HospitalComment on above:Performed By: #### CBCMAGALI Costello, 2531-0 ####[facility] ([id number])[address] [address] [place] [address]Cvwmqamnii (Bld) [Mass/Vol] 12.0 g/dLLow13.0-17.0[facility] HospitalComment on above:Performed By: #### CBCTrang CMP, 2531-0 ####[facility] ([id number])[address] [address]Wwwfeinligj (Bld) [#/Vol]2.0 10*3/uLNormal 1.0-3.5POur [facility] of [facility] HospitalComment on above:Performed By: #### CBCA CMP, 2531-0 ####[facility] ([id number])[address], [place] [address]Sjzsruxvmki/100 WBC (Bld)8.6 %NormalProBlanchard Valley Health [facility] Comment on above:Performed By: #### CBCA, CMP, 2531-0 ####[facility] ([id number])[address], [place] [address]OXV (RBC) [Entitic mass]30.4 elEfuzuc77-30TixZfwzpq [facility] HospitalComment on above: Performed By: #### CBCA, CMP, 2531-0 ####[facility] ([id number])[address], [address] [place] [address]AFTQ (RBC) [Mass/Vol]33.1 g/uFDvihfg65-66QsrBcsjsi [facility] HospitalComment on above:Performed By: #### CBCA, CMP, 2531-0 ####[facility] ([id number])[address], [place] [address]KMM (RBC) [Entitic vol]92 dBHimvhp29-307UccArodxk [facility] HospitalComment on above:Performed By: #### CBCA, CMP, 2531-0 ####[facility] ([id number])[address], [address] [place] [address] Monocytes (Bld) [#/Vol]3.5 10*3/uLHigh0-0.9[facility] HospitalComment on above:Performed By: #### CBCA, CMP, 2531-0 ####[facility] ([id number])[address], [address] [place] [address]Umdohfrlb/100 WBC (Bld)15.3 %NormalProBlanchard Valley Health System [facility] Hospitalca [facility] HospitalComment on above:Performed By: #### CBCA, CMP, 2531-0 ####[facility] ([id number])[address] [address] [place] [address]Kdmuicocush/100 WBC (Bld)75.6 %NormalProPomerene Hospital HospitalComment on above:Performed By: #### CBCA, CMP, 253-0 ####[facility] ([id number])[address] [address] [place] [address] Platelet mean volume (Bld) [Entitic vol]8.5 fLNormal7-12[facility] HospitalComment on above:Performed By: #### CBCTrang, CMP, 2531-0 ####[facility] ([id number])[address] [address] Platelets (Bld) [#/Vol]486 10*3/sQZxop242-202LdtCeknvy [facility] HospitalComment on above:Performed By: #### CBCTrang, CMP, 2531-0 ####[facility] ([id number])[address] [address]XRZ COUNT3.93 X10E12/LLow 4.10-5.70[facility] HospitalComment on above:Performed By: #### CBCA, CMP, 2531-0 ####[facility] ([id number])[address] [address]EDB (Bld) [#/Vol]22.9 10*3/uLHigh4.0-11.0ProBlanchard Valley Health System [facility] Hospitalca Hilger HospitalComment on above:Performed By: #### CBCA, CMP, 2532-0 ####[facility] ([id number])[address] [address] COMPREHENSIVE METABOLIC PANELon 20-04-9794Nmsxsxz [Mass/Vol]2.3 g/dLLow3.2-5.3 [facility] HospitalComment on above:Performed By: #### CBCA, CMP, 2532-0 ####[facility] ([id number])[address], [address], [place] [address]OTS [Catalytic activity/Vol]102 U/CVabkyy82-138YlqKqiizaMemorial Health System Comment on above:Performed By: #### OG CMP, 2531-0 ####[facility] ([id number])[address], [address], [place] [address]XCH [Catalytic activity/Vol]23 U/LNormal0-40ProCincinnati Shriners HospitalComment on above:Performed By: #### MAGALI FOLEY, 2531-0 ####[facility] ([id number])[address], [address], [place] [address]Zlbhc gap [Moles/Vol]9 mmol/LNormal5-15 [facility] HospitalComment on above:Performed By: #### MAGALI FOLEY, 2531-0 ####[facility] ([id number])[address], [place] [address]HJA [Catalytic activity/Vol]17 U/LNormal0-41[facility] Comment on above:Performed By: #### MAGALI FOLEY, 2531-0 ####[facility] ([id number])[address], [address], [place] [address]Gawdxmvww [Mass/Vol]0.5 mg/dLNormal0.3-1.2ProMedWestern [facility] Hospital HospitalComment on above: Performed By: #### OG CMP, 2531-0 ####[facility] ([id number])[address], [address], [place] [address]Btstqoo [Mass/Vol]8.7 mg/dL Normal8.5-10.5POur Lady of Mercy Hospital - Anderson HospitalComment on above:Performed By: #### OG CMP, 2531-0 ####[facility] ([id number])[address], [address] [place] [address]Jjjawpxq [Moles/Vol]103 mmol/TGxeiab57-441PguIeecdk [facility] HospitalComment on above:Performed By: #### MAGALI FOLEY, 2531-0 ####[facility] ([id number])[address] [address] [place], [place] [address]BD1 [Moles/Vol]28 mmol/RFkajgu64-64MenCppkon [facility] HospitalComment on above: Performed By: #### MAGALI FOLEY, 2531-0 ####[facility] ([id number])[address] [address] [place] [address]Cqdvuawjjw [Mass/Vol]0.45 mg/dLLow0.60-1.30[facility] HospitalComment on above:Result Comment: METHOD TRACEABLE TO IDMS STANDARDPerformed By: #### MAGALI FOLEY, 0 ####[facility] ([id number])[address] [address] [place] [address]oHDO (CKD-EPI) NON-RACE DEPENDENT>90Normal>59[facility]rell HospitalComment on above:Result Comment: Reported eGFR is based on theCKD-EPI 2020 equation that doesnot use a race coefficient.Performed By: #### MAGALI FOLEY, 2531-0 ####[facility] ([id number])[address] [address], [place] [address] Glucose [Mass/Vol]190 mg/jKPjmf07-12EawCvwjst [facility] HospitalComment on above: Performed By: #### MAGALI FOLEY, 2531-0 ####[facility] ([id number])[address] [address], [place] [address]Fylwueoye [Moles/Vol]4.1 mmol/LNormal3.5-5.0[facility] HospitalComment on above:Performed By: #### MAGALI FOLEY, 2531-0 ####[facility] ([id number])[address], [address], [place] [address]Vrugwum [Mass/Vol]5.6 g/dLLow6.0-8.0[facility] HospitalComment on above:Performed By: #### MAGALI FOLEY, 2532-0 ####[facility] ([id number])[address], [address] [address] Sodium [Moles/Vol]140 mmol/TTyvrad240-985MhqRfhcxc [facility]rell HospitalComment on above:Performed By: #### MAGALI FOLEY, 2531-0 ####[facility] ([id number])[address], [address], [place] [address]Fpte nitrogen [Mass/Vol]11 mg/dLNormal5-27ProBlanch[facility] Valley Health System [facility] Hospitalca Hilger HospitalComment on above:Performed By: #### MAGALI FOLEY, 2531-0 ####[facility] ([id number])[address] [address], [place] [address]LWQ [Catalytic activity/Vol]on 01-70-6437MZS588 U/LHigh 100-235[facility] HospitalComment on above:Performed By: #### MAGALI FOLEY, 2-0 ####[facility] ([id number])[address] [address], [place] [address]yYTU Coag (PPP) [Time]on 76-51-7543fIWZ Coag (Bld) [Time]47 s Dcsz15-20GcoDuovrk [facility] HospitalComment on above:Performed By: #### 12185-3 ####[facility] ([id number])[address] [address] [place], [place] [address]aHZX Coag (Bld) [Time]34 eQywgqe56-72DtoFolico [facility] HospitalComment on above:Performed By: #### 76811-8 ####[facility] ([id number])[address], [address] [place] [address]dZKM Coag (Bld) [Time]36 s Ijnsmp03-98DyuCooohj Hilger HospitalComment on above:Performed By: #### 53210-0 ####[facility] ([id number])[address], [address] [address] AND DIFFon 30-30-9849TRPP FLUID COMMENT Interpretation--------NormalProBlanchard Valley Health System [facility] Hospitalca Hilger HospitalComment on above: Result Comment: Reference values for this fluid type areundefined, as fluid accumulation isconsidered abnormal.Performed By: #### FALB, FAMY, FLD, FLIP, FTP, FTRIG, BFCT ####[facility] ([id number])[address] [address]XWQFD CLARITYCLEARNormalProMedica [facility] Hospital Comment on above:Performed By: #### FALB, FAMY, FLD, FLIP, FTP, FTRIG, BFCT ####[facility] ([id number])[address] [address] [place] [address]XNPFT COLORYELLOWNormalProPomerene Hospital HospitalComment on above:Performed By: #### FALB, FAMY, FLD, FLIP, FTP, FTRIG, BFCT ####[facility] ([id number])[address] [address] [place] [address]KTEPT OBPHFIAEBG97 % NormalProBlanchard Valley Health System [facility] Hospitalca Hilger HospitalComment on above:Performed By: #### FALB, FAMY, FLD, FLIP, FTP, FTRIG, BFCT ####[facility] ([id number])[address], [address] [place] [address]JVCGA MESOTHELIAL8 %NormalProMedica Hilger HospitalComment on above:Performed By: #### FALB, FAMY, FLD, FLIP, FTP, FTRIG, BFCT ####[facility] ([id number])[address], [address] [place] [address]QAMYD RQEMYGAORTE54 %NormalProMedica Hilger HospitalComment on above:Performed By: #### FALB, FAMY, FLD, FLIP, FTP, FTRIG, BFCT ####[facility] ([id number])[address], [address] [place] [address]KUNYI RBC CT145 /uLNormalProMedica Hilger HospitalComment on above:Performed By: #### FALB, FAMY, FLD, FLIP, FTP, FTRIG, BFCT ####[facility] ([id number])[address], [address] [place] [address]YVZPL SPECIMEN TYPEPLEURAL FLUIDNormalProBlanchard Valley Health System [facility] Hospitalca Hil[facility] HospitalComment on above:Result Comment: RIGHT Performed By: #### FALB, FAMY, FLD, FLIP, FTP, FTRIG, BFCT ####[facility] ([id number])[address], [address] [place] [address]WXNRCBLYLUD05 % NormalProMedica Hilger HospitalComment on above:Performed By: #### FALB, FAMY, FLD, FLIP, FTP, FTRIG, BFCT ####[facility] ([id number])[address] [address]WBEOCZTHU CELL CT556 /uLNormalProBlanchard Valley Health System [facility] Hospitalca Hilger HospitalComment on above:Performed By: #### FALB, FAMY, FLD, FLIP, FTP, FTRIG, BFCT ####[facility] ([id number])[address], [address] [place] [address]VUO AND AUTO DIFFon 24-86-7060LYPIQZSP BASOPHIL0.0 X10E9/L Normal0.0-0.2[facility]ger HospitalComment on above:Performed By: #### CBCA, CMP, 84081-4 ####[facility] ([id number])[address] [address] [place] [address]NIGUCJRS FGSPFXHSTD12.6 X10E9/LHigh1.5-6.6ProPomerene Hospital HospitalComment on above:Performed By: #### CBCA, CMP, 71958-5 ####[facility] ([id number])[address] [address] [place] [address] ACANTHOCYTE1+AbnormalNONEProMedica Hilger HospitalComment on above:Performed By: #### CBCA, CMP, 89440-2 ####[facility] ([id number])[address] [address] [place] [address]Ekhvzuzjr/100 WBC (Bld)0.1 %NormalProPomerene Hospital HospitalComment on above:Performed By: #### CBCA, CMP, 30767-9 ####[facility] ([id number])[address] [address] [place] [address] Eosinophils (Bld) [#/Vol]0.0 10*3/uLNormal0.0-0.4[facility] Hospital Comment on above:Performed By: #### CBCA, CMP, 24429-9 ####[facility] ([id number])[address] [address]Fwrvxzvobvs/100 WBC (Bld)0.1 %NormalProPomerene Hospital HospitalComment on above:Performed By: #### CBCA, CMP, 21525-3 ####[facility] ([id number])[address] [address]Omzurfyeipd distribution width (RBC) [Ratio]16.8 %High 11.5-15.0ProPomerene Hospital HospitalComment on above:Performed By: #### CBCA, CMP, 15522-6 ####[facility] ([id number])[address], [address], [place] [address]Jzdaqvxrdm (Bld) [Volume fraction]33.7 %Qic75-98XgmUxmbhy Hilger HospitalComment on above:Performed By: #### CBCA, CMP, 99713-2 ####[facility] ([id number])[address], [address] [address] Hemoglobin (Bld) [Mass/Vol]11.0 g/dLLow13.0-17.0[facility] HospitalComment on above:Performed By: #### CBCA, CMP, 29397-5 ####[facility] ([id number])[address], [address], [place] [address]Odkbveynliy (Bld) [#/Vol] 1.9 10*3/uLNormal1.0-3.5[facility] HospitalComment on above:Performed By: #### CBCA, CMP, 54559-8 ####[facility] ([id number])[address], [address], [place] [address]Uoombvmlpav/100 WBC (Bld)8.1 %Normal [facility] HospitalComment on above:Performed By: #### CBCA, CMP, 64714-4 ####[facility] ([id number])[address], [address], [place] [address]GRN (RBC) [Entitic mass]30.0 zqTafcnx72-69FlsUkqaim Hilger HospitalComment on above:Performed By: #### CBCA, CMP, 36603-9 ####[facility] ([id number])[address], [address], [place] [address]JAXO (RBC) [Mass/Vol]32.7 g/vBCsvtjp10-15TcpYrqdby Hilger HospitalComment on above:Performed By: #### CBCA, CMP, 22987-4 ####[facility] ([id number])[address], [address], [place] [address]XWA (RBC) [Entitic vol]92 zXRfhchn95-528GqfOnaxjv [facility]ger HospitalComment on above:Performed By: #### CBCA, CMP, 21977-2 ####[facility] ([id number])[address], [address] [address] Monocytes (Bld) [#/Vol]3.9 10*3/uLHigh0-0.9[facility] HospitalComment on above:Performed By: #### CBCA, CMP, 45331-2 ####[facility] ([id number])[address], [place] [address]Oesnpamlw/100 WBC (Bld)16.5 %NormalProBlanchard Valley Health System [facility] Hospitalca [facility] HospitalComment on above:Performed By: #### CBCA, CMP, 09963-0 ####[facility] ([id number])[address], [address], [place] [address]Fqiwtsqoigp/100 WBC (Bld)75.2 %NormalProBlanchard Valley Health System [facility] Hospitalca [facility] HospitalComment on above:Performed By: #### CBCA, CMP, 75322-7 ####[facility] ([id number])[address] [address] [address] Platelet mean volume (Bld) [Entitic vol]7.9 fLNormal7-12[facility] HospitalComment on above:Performed By: #### CBCA, CMP, 06350-1 ####[facility] ([id number])[address] [place] [address] Platelets (Bld) [#/Vol]475 10*3/fYLglc302-642DfoIwkxgz [facility] HospitalComment on above:Performed By: #### CBCA, CMP, 98805-9 ####[facility] ([id number])[address], [address] [place] [place] [address]IDFIKWXKKABDY5+AbnormalNONE ProMmonroe county hospitala Hilger HospitalComment on above:Performed By: #### MAGALI FOLEY, 82304-7 ####[facility] ([id number])[address], [place] [address]ZYA COUNT3.67 X10E12/LLow4.10-5.70ProBlanch[facility] Valley [facility] System [facility] Hospitalca [facility] HospitalComment on above:Performed By: #### MAGALI FOLEY, 07420-1 ####[facility] ([id number])[address], [address] [place] [address]ZSF (Bld) [#/Vol]23.4 10*3/uLHigh4.0-11.0ProBlanchard Valley [facility] System [facility] Hospitalca [facility] HospitalComment on above:Performed By: #### MAGALI FOLEY, 60327-1 ####[facility] ([id number])[address], [place] [address]JPOPYCEJOLUVI METABOLIC PANELon 18-82-1340Ofpioem [Mass/Vol]2.1 g/dLLow3.2-5.3Pro[facility] HospitalComment on above:Performed By: #### MAGALI FOLEY, 31747-7 ####[facility] ([id number])[address], [place] [address]FAG [Catalytic activity/Vol]93 U/LNormal 39-130Pro[facility] HospitalComment on above:Performed By: #### OG CMP, 23996-7 ####[facility] ([id number])[address], [place] [address]ANO [Catalytic activity/Vol]22 U/LNormal0-40[facility] HospitalComment on above:Performed By: #### OG CMP, 78186-4 ####[facility] ([id number])[address], [address], [place] [address]Utewd gap [Moles/Vol]7 mmol/LNormal5-15[facility] HospitalComment on above: Performed By: #### MAGALI FOLEY, 20376-6 ####[facility] ([id number])[address], [place] [address]YWI [Catalytic activity/Vol]17 U/LNormal0-41[facility] HospitalComment on above:Performed By: #### MAGALI FOLEY, 57866-2 ####[facility] ([id number])[address], [address], [place] [address]Aubcvbgzy [Mass/Vol]0.6 mg/dLNormal0.3-1.2 [facility] HospitalComment on above:Performed By: #### MAGALI FOLEY, 40138-7 ####[facility] ([id number])[address], [place] [address]Jasobav [Mass/Vol]8.2 mg/dLLow8.5-10.5[facility] HospitalComment on above:Performed By: #### MAGALI FOLEY, 78666-2 ####[facility] ([id number])[address], [address], [place] [address]Qxvstaqy [Moles/Vol]103 mmol/JZswopv29-681JfiOgydgl [facility] HospitalComment on above:Performed By: #### MAGALI FOLEY, 96740-7 ####[facility] ([id number])[address], [address], [place] [address]ZI3 [Moles/Vol]26 mmol/VKomcqm33-81YmjYutchx [facility] HospitalComment on above:Performed By: #### MAGALI FOLEY, 55200-2 ####[facility] ([id number])[address], [address], [place] [address] Creatinine [Mass/Vol]0.48 mg/dLLow0.60-1.30[facility] HospitalComment on above:Result Comment: METHOD TRACEABLE TO IDMS STANDARDPerformed By: #### MAGALI FOLEY, 77116-4 ####[facility] ([id number])[address] [address], [place] [address]wVWW (CKD-EPI) NON-RACE DEPENDENT>90Normal>59ProP[facility] Hospital HospitalComment on above:Result Comment: Reported eGFR is based on theCKD-EPI 2020 equation that doesnot use a race coefficient.Performed By: #### MAGALI FOLEY, 81561-9 ####[facility] ([id number])[address] [address], [place] [address]Piwriug [Mass/Vol]115 mg/aYSfnv78-29FgmUcbcmb [place] [facility] Comment on above:Performed By: #### MAGALI FOLEY, 37157-1 ####[facility] ([id number])[address] [address], [place] [address]Facxmavzk [Moles/Vol]4.3 mmol/LNormal3.5-5.0ProP[facility] Hospital HospitalComment on above: Performed By: #### MAGALI FOLEY, 74154-6 ####[facility] ([id number])[address] [address] [place] [place] [address]Uiitkkj [Mass/Vol]4.7 g/dL Low6.0-8.0ProP[facility] Hospital HospitalComment on above:Performed By: #### MAGALI FOLEY, 61213-0 ####[facility] ([id number])[address] [address] [place] [place] [address]Dwrpkh [Moles/Vol]136 mmol/SBriokl307-712HgvTujbqq [place] HospitalComment on above:Performed By: #### MAGALI FOLEY, 07662-2 ####[facility] ([id number])[address] [address] [place], [place] [address]Ilmu nitrogen [Mass/Vol]11 mg/dLNormal5-27ProCincinnati Shriners HospitalComment on above: Performed By: #### CBCA, CMP, 45840-4 ####[facility] ([id number])[address] [place] [address], [address] [place] [address]Icmyqdyxcb 06-27-2023 CytologyNormalMemorial Health SystemComment on above:Result Comment: [email or web address] [facility] [address] [place] [address] Cytology ConsultationPatient Name:TORSTEN HAYWOOD:1955 (Age: 67)Gender:MTaken:06/27/2023eported:06/30/2023 16:47Physician(s):Fletcher Huston M.D. ([phone])Copy To:Thony Jacobs [facility] Hospitalession #:[id number]. Rec. #:[id number]: #[id number] Cytologic DiagnosisRight pleural fluid:No malignant cells identified.nxk/06/30/2023Interpretation performed at [facility] [place] [address], License number: [id number].Electronically Signed Out By Derek Shah MDClinical HistoryMass of lung (R91.8).Gross DescriptionReceived was 800 mL of yellow fluid unfixed labeled as Higgins, right pleural fluid .CytoLyt added in lab. Specimen placed in formalin at 10:00 and had a total fixation time of 15 hours.Source of Specimen Right pleural fluid Cell block for Non-lithoduplicator operator (M), Level 2 H&E, Non GYROSCOPE TECHNICIAN ThinPrepFee Code(s):1; 15790, [address]WPIJZ ALBUMINon 05-95-4266VSZ SPECIMEN TYPE PLEURAL FLUIDNoWilson Street HospitalComment on above:Result Comment: RIGHTPerformed By: #### FALB, FAMY, FLD, FLIP, FTP, FTRIG, BFCT ####[facility] ([id number])[address] [address], [place] [address]GKUEW ALBUMIN<1.5NormalProPomerene Hospital HospitalComment on above:Result Comment: The reference interval and othermethod performance specifications areunavailable for this body fluid.Comparison of this result to serumor plasma is recommended. Performed By: #### FALB, FAMY, FLD, FLIP, FTP, FTRIG, BFCT ####[facility] ([id number])[address] [address] [place] [address]FXTWV AMYLASEon 98-04-1571BBM SPECIMEN TYPEPLEURAL FLUIDNoWilson Street HospitalComment on above:Result Comment: RIGHTPerformed By: #### FALB, FAMY, FLD, FLIP, FTP, FTRIG, BFCT ####[facility] ([id number])[address] [address]IRHRE AMYLASE<10NormalProPomerene Hospital HospitalComment on above:Result Comment: The reference interval and othermethod performance specifications areunavailable for this body fluid.Comparison of this result to serumor plasma is recommended.Performed By: #### FALB, FAMY, FLD, FLIP, FTP, FTRIG, BFCT ####[facility] ([id number])[address] [address]MCVPT CULTUREon 38-48-6271Aqtroory identified Aer cx Nom (Body fld)GRAM STAIN WHITE BLOOD CELLS PRESENT NO ORGANISMS SEEN ON CONCENTRATED SMEAR CULTURE RESULTS NO GROWTH [address] HospitalComment on above:Performed By: #### 610-6 ####[facility] ([id number])[address] [address]ENXXL LDHon 37-90-7988XINEH KHM311 U/LNormalProPomerene Hospital HospitalComment on above:Result Comment: The reference interval and othermethod performance specifications areunavailable for this body fluid.Comparison of this result to serumor plasma is recommended.Performed By: #### FALB, FAMY, FLD, FLIP, FTP, FTRIG, BFCT ####[facility] ([id number])[address], [address] [place] [address]XK SPECIMEN TYPEPLEURAL FLUIDNoParkview Health [facility] HospitalComment on above:Result Comment: RIGHTPerformed By: #### FALB, FAMY, FLD, FLIP, FTP, FTRIG, BFCT ####[facility] ([id number])[address] [address]UWZHK LIPASEon 31-77-6200ECEUW LIPASE<3NoParkview Health Montpelier Hospital HospitalComment on above:Result Comment: The reference interval and othermethod performance specifications areunavailable for this body fluid.Comparison of this result to serumor plasma is recommended. Performed By: #### FALB, FAMY, FLD, FLIP, FTP, FTRIG, BFCT ####[facility] ([id number])[address] [address]BQRTPD SPECIMEN TYPECOX WALNUT LAWN FLUIDOhioHealthComc.s. mott [facility] on above:Result Comment: RIGHTPerformed By: #### FALB, FAMY, FLD, FLIP, FTP, FTRIG, BFCT ####[facility] ([id number])[address] [address] [place] [address]ZYRIY T. PROTEINon 20-17-6980WVUOU TOT. PROTEIN2.7 g/dLNoParkview Health [facility]pel[facility] Hospital HospitalComment on above:Result Comment: The reference interval and othermethod performance specifications areunavailable for this body fluid.Comparison of this result to serumor plasma is recommended.Performed By: #### FALB, FAMY, FLD, FLIP, FTP, FTRIG, BFCT ####[facility] ([id number])[address] [address] SPECIMEN TYPEPLEURAL FLUIDNormalProMedica Hilger HospitalComment on above:Result Comment: RIGHT Performed By: #### FALB, FAMY, FLD, FLIP, FTP, FTRIG, BFCT ####[facility] ([id number])[address], [address], [place] [address]XNUDV TRIGLYCERIDEon 43-64-1974DYRCY GFNPFJRMQLBX61 mg/dLNormalProPomerene Hospital HospitalComment on above:Result Comment: The reference interval and othermethod performance specifications areunavailable for this body fluid.Comparison of this result to serumor plasma is recommended.Performed By: #### FALB, FAMY, FLD, FLIP, FTP, FTRIG, BFCT ####[facility] ([id number])[address], [address] [place] [address]TUYO SPECIMEN TYPEPLEURAL FLUIDNormal [facility] HospitalComment on above:Result Comment: RIGHTPerformed By: #### FALB, FAMY, FLD, FLIP, FTP, FTRIG, BFCT ####[facility] ([id number])[address], [address] [place] [address]Jaywndm (P herminio) [Moles/Vol] on 95-08-3959Xcpogoy [Moles/Vol]2.1 mmol/LHigh0.4-2.0[facility] Hospital Comment on above:Performed By: #### 20389-9 ####[facility] ([id number])[address], [address], [place] [address]UAXSXXZ W/REFLEX2.2 mmol/L High0.4-2.0[facility] HospitalComment on above:Performed By: #### 43643-9 ####[facility] ([id number])[address], [address] [place] [address]WCLSTGT W/REFLEX1.3 mmol/LNormal0.4-2.0[facility] HospitalComment on above:Result Comment: Result did not trigger repeat Lactate,re-order if needed. Performed By: #### CBCA, CMP, 68158-3 ####[facility] ([id number])[address], [address] [place] [address]Ywecivg [Moles/Vol]1.9 mmol/LNormal0.4-2.0ProPomerene Hospital HospitalComment on above:Performed By: #### 23213-8 ####[facility] ([id number])[address], [address] [place] [address]JO CHEST 1 VWon 75-11-0823OP CHEST [address] HospitalaPTT Coag (PPP) [Time]on 38-45-8774gJHR Coag (Bld) [Time]34 sNormal 26-37ProCincinnati Shriners HospitalComment on above:Performed By: #### 70156-3 ####[facility] ([id number])[address] [address]JLK CULTURE(CONCENTRATED)on 47-30-3681Piecqkcdjhpju sp identified Org specific cx Nom (Unsp spec)AFB SMEAR NO ACID FAST BACILLI (CONCENTRATED SMEAR) CULTURE RESULTS NO ACID FAST BACILLI ISOLATED IN 8 WEEKSOhioHealthComment on above:Performed By: #### 543-9 ####[facility] ([id number])[address], [address] AND DIFFon 67-30-6980WGLJ FLUID COMMENT Interpretation--------NormalProCincinnati Shriners HospitalComc.[facility] on above:Result Comment: Reference values for this fluid type areundefined, as fluid accumulation isconsidered abnormal.Performed By: #### BFCT ####[facility] HOSPITAL LAB ([id number])[address] [address] [place] [address] 86167SEUDP CLARITYBLOODYNormalProPomerene Hospital HospitalComment on above:Performed By: #### BFCT ####[facility] ([id number])[address], [address], [place] [address]SGCSW COLORREDNormalProMedica Hilger HospitalComment on above:Performed By: #### BFCT ####[facility] ([id number])[address], [address], [place] [address]EFAEU LYMPHOCYTE5 % NormalProMedica Hilger HospitalComment on above:Performed By: #### BFCT ####[facility] ([id number])[address] [facility] [address], [place] [address]XAUDR THSMVNFRRRK32 %NormalProMedica Hilger HospitalComment on above: Performed By: #### BFCT ####[facility] ([id number])[address] [facility] [address] [place] [address] 27137FKRYA RBC HC60032 /uLNormalProMedica Hilger HospitalComment on above:Performed By: #### BFCT ####[facility] ([id number])[address], [address] [place] [address] 95425DRLQK SPECIMEN TYPE BRONCHIAL WASHINGNormalProBlanchard Valley Health System [facility] Hospitalca Hilger HospitalComment on above:Performed By: #### BFCT ####[facility] ([id number])[address], [address] [place] [address] 05022PEXLQAMZRIX5 %NormalProMedica Hilger HospitalComment on above:Performed By: #### BFCT ####[facility] ([id number])[address], [address], [place] [address]AGUHXLHVN CELL CT141 /uLNormalProMedica Hilger HospitalComment on above:Performed By: #### BFCT ####[facility] ([id number])[address], [address], [place] [address]AFL AND AUTO DIFFon 16-27-4424GIPKBGQE BASOPHIL0.0 X10E9/LNormal0.0-0.2ProMedica Hilger HospitalComment on above:Performed By: #### MAGALI FOLEY, 78703-9 ####[facility] ([id number])[address], [address] [address] ABSOLUTE IZOESTHAPU34.5 X10E9/LHigh1.5-6.6ProBlanchard Valley Health System [facility] Hospitalca Hilger HospitalComment on above:Performed By: #### MAGALI FOLEY, 01227-4 ####[facility] ([id number])[address], [address], [place] [address]Gtlheakrw/100 WBC (Bld)0.1 %NormalProPomerene Hospital HospitalComment on above:Performed By: #### MAGALI FOLEY, 71057-8 ####[facility] ([id number])[address] [address] [place] [address] 06947Hraybtuovfm (Bld) [#/Vol]0.0 10*3/uLNormal0.0-0.4ProPomerene Hospital HospitalComment on above:Performed By: #### MAGALI FOLEY, 60696-5 ####[facility] ([id number])[address] [address] [place] [address] 74889 Eosinophils/100 WBC (Bld)0.1 %NormalProPomerene Hospital HospitalComment on above: Performed By: #### MAGALI FOLEY, 45662-2 ####[facility] ([id number])[address] [address] [place] [address] 95166Fjtqfylffan distribution width (RBC) [Ratio]16.9 %High11.5-15.0ProPomerene Hospital HospitalComment on above: Performed By: #### MAGALI FOLEY, 63026-2 ####[facility] ([id number])[address], [address] [place] [address] 73542Kijtbdnttf (Bld) [Volume fraction]34.8 %Rzk11-04VvaPlahrz Hilger HospitalComment on above:Performed By: #### CBCTrang, CMP, 37189-5 ####[facility] ([id number])[address], [address] [place] [address] 22712Gbfgyszlzx (Bld) [Mass/Vol]11.4 g/dLLow 13.0-17.0ProBlanchard Valley Health System [facility] Hospitalca Hilger HospitalComment on above:Performed By: #### CBCA, CMP, 59459-0 ####[facility] ([id number])[address] [address] [place] [address] 09362Uoadhiukgbd (Bld) [#/Vol]2.0 10*3/uLNormal1.0-3.5ProMedica Hilger HospitalComment on above:Performed By: #### CBCA, CMP, 23391-8 ####[facility] ([id number])[address], [address] [place] [address] 37598 Lymphocytes/100 WBC (Bld)10.6 %NormalProPomerene Hospital HospitalComment on above: Performed By: #### CBCA, CMP, 36091-2 ####[facility] ([id number])[address], [address] [place] [address] 64239EKY (RBC) [Entitic mass] 30.1 dwTmlqhr30-46XuqTlkswd [place] HospitalComment on above:Performed By: #### CBCA, CMP, 45539-0 ####[facility] ([id number])[address], [address] [place] [address] 90715IUVM (RBC) [Mass/Vol]32.9 g/bKYleczm54-63EvcSslnrn [place] HospitalComment on above:Performed By: #### CBCA, CMP, 03415-6 ####[facility] ([id number])[address], [address] [place] [address] 28012HXW (RBC) [Entitic vol]91 zCYyiymj55-371PffVqvyjz [facility]rell HospitalComment on above: Performed By: #### CBCA, CMP, 57369-6 ####[facility] ([id number])[address], [address], [place] [address]Jfvqyzalh (Bld) [#/Vol]4.1 10*3/uLHigh0-0.9ProMedica Terrell HospitalComment on above:Performed By: #### CBCA, CMP, 16803-7 ####[facility] ([id number])[address], [address], [place] [address]Bzdqwflsy/100 WBC (Bld)22.2 %NormalProMedica Terrell HospitalComment on above:Performed By: #### CBCA, CMP, 91194-2 ####[facility] ([id number])[address], [address], [place] [address] Neutrophils/100 WBC (Bld)67.0 %NormalProMedica Terrell HospitalComment on above: Performed By: #### CBCA, CMP, 80728-6 ####[facility] ([id number])[address], [address], [place] [address]Lpelueuk mean volume (Bld) [Entitic vol]8.1 fLNormal7-12ProMedica [facility]rell HospitalComment on above:Performed By: #### CBCA, CMP, 03742-1 ####[facility] ([id number])[address], [address], [place] [address]Upnfusxdk (Bld) [#/Vol]483 10*3/uLHigh 150-450ProMedica Terrell HospitalComment on above:Performed By: #### CBCA, CMP, 21352-5 ####[facility] ([id number])[address], [address] [place] [place], [place] [address]TWCOBJZBGHSOY0+AbnormalNONEProMedica Terrell HospitalComment on above:Performed By: #### MAGALI FOLEY, 87714-1 ####[facility] ([id number])[address], [address] [place] [address] 17614MNG COUNT3.80 X10E12/LLow 4.10-5.70ProMedica [facility]rell HospitalComment on above:Performed By: #### MAGALI FOLEY, 88978-1 ####[facility] ([id number])[address], [address] [place] [address] 07394MWE (Bld) [#/Vol]18.7 10*3/uLHigh4.0-11.0ProMedica Terrell HospitalComment on above:Performed By: #### MAGALI FOLEY, 71390-3 ####[facility] ([id number])[address], [address] [place] [address]65[address] COMPREHENSIVE METABOLIC PANELon 87-33-0922Bikaezd [Mass/Vol]2.1 g/dLLow3.2-5.3 ProMedica [facility]rell HospitalComment on above:Performed By: #### MAGALI FOLEY, 76976-0 ####[facility] ([id number])[address], [address] [place] [address] 81945PCZ [Catalytic activity/Vol]105 U/OZhowmv05-495QfdPrdulc [facility] Comment on above:Performed By: #### MAGALI FOLEY, 37784-5 ####[facility] ([id number])[address], [address], [place] [address]KKE [Catalytic activity/Vol]29 U/LNormal0-40ProMedica [facility] HospitalComment on above:Performed By: #### MAGALI FOLEY, 78281-1 ####[facility] ([id number])[address], [address] [place] [address], [place] [address]Jvhka gap [Moles/Vol]7 mmol/LNormal5-15 Pro[facility]ica [facility]rell HospitalComment on above:Performed By: #### MAGALI FOLEY, 00472-9 ####[facility] ([id number])[address], [address], [place] [address]ZHW [Catalytic activity/Vol]34 U/LNormal0-41ProPomerene Hospital Hospital Comment on above:Performed By: #### MAGALI FOLEY, 48455-1 ####[facility] ([id number])[address], [address], [place] [address]Yecvoqalj [Mass/Vol]0.7 mg/dLNormal0.3-1.2POur Lady of [facility] Anderson HospitalComment on above: Performed By: #### MAGALI FOLEY, 13691-1 ####[facility] ([id number])[address] [address], [place] [address]Iuyjout [Mass/Vol]8.0 mg/dL Low8.5-10.5POur [facility] HospitalComment on above:Performed By: #### MAGALI FOLEY, 21063-3 ####[facility] ([id number])[address], [address], [place] [address]Xraltdnr [Moles/Vol]101 mmol/MUfttsn58-062YaiMytkoi [place] HospitalComment on above:Performed By: #### MAGALI FOLEY, 74004-4 ####[facility] ([id number])[address] [address], [place] [address]BF7 [Moles/Vol]28 mmol/LYdltwj64-65GlmOsyzya [place] HospitalComment on above: Performed By: #### OG CMP, 67071-2 ####[facility] ([id number])[address] [address], [place] [address]Tkswxmdrve [Mass/Vol]0.50 mg/dLLow0.60-1.30ProPome[facility] Hospital HospitalComment on above:Result Comment: METHOD TRACEABLE TO IDMS STANDARDPerformed By: #### MAGALI FOLEY, 90803-7 ####[facility] ([id number])[address] [address] [place], [place] [address]rNCB (CKD-EPI) NON-RACE DEPENDENT>90Normal>59ProCincinnati Shriners Hospital Comment on above:Result Comment: Reported eGFR is based on theCKD-EPI 2020 equation that doesnot use a race coefficient.Performed By: #### MAGALI FOLEY, 09636-9 ####[facility] ([id number])[address] [address], [place] [address]Rtjgqge [Mass/Vol]98 mg/oYBwnymd69-69KtjNnxwzq [place] HospitalComment on above:Performed By: #### MAGALI FOLEY, 76678-6 ####[facility] ([id number])[address] [address], [place] [address] Potassium [Moles/Vol]3.9 mmol/LNormal3.5-5.0ProP[facility] Hospital HospitalComment on above:Performed By: #### MAGALI FOLEY, 10950-3 ####[facility] ([id number])[address] [address] [place], [place] [address]Otnjmhc [Mass/Vol]4.8 g/dL Low6.0-8.0ProP[facility] Hospital HospitalComment on above:Performed By: #### MAGALI FOLEY, 44467-4 ####[facility] ([id number])[address] [address] [place], [place] [address]Bctblp [Moles/Vol]136 mmol/EFlhikd479-995MqhHoqihh [place] HospitalComment on above:Performed By: #### MAGALI FOLEY, 16997-6 ####[facility] ([id number])[address] [address] [place], [place] [address]Cnma nitrogen [Mass/Vol]11 mg/dLNormal5-27ProP[facility] Hospital HospitalComment on above: Performed By: #### OG [facility], 60262-8 ####[facility] ([id number])[address] [place] [address], [address] [place] [address] 67435Hqngpcokeg 06-26-2023 CytologyNormalProMedica [facility] Mansfield HospitalComment on above:Result Comment: [facility] [address] [place] [address] Cytology ConsultationPatient Name:TORSTEN HAYWOOD:1955 (Age: 67)Gender:MTaken:06/26/2023eported:06/29/2023 16:03Physician(s):Harvinder Berg M.D. ([phone])Copy To:MONIE Keen M.D.Brian E. Tasma, [facility] Hospitalession #:[id number]. Rec. #:[id number]: #[id number] Cytologic Diagnosis1. 11L, fine needle aspirate:No malignant [...] cells identified.Benign bronchial cells.ao/06/29/2023Interpretation performed at [facility], [address] [place] [address], License number: [id number].Electronically Signed Out By Lamont Phelps MDAdditional Report(s): Flow Cytometry-Surg/BM/NG Date Reported: 06/29/2023Immunophenotypic analysis of the lymphoid cells demonstrates a hypocellular specimen with a predominant population of phenotypically unremarkable T-cells and rare polyclonal B-cells. No monoclonal lymphoid population is detected.Immunophenotyping antibodies tested: CD3, CD5, CD7, CD10, CD19, CD20, CD23, CD45, Krupp, and Lambda.Immunophenotyping Comment:Immunophenotyping has been used in this diagnostic evaluation. This test was developed and its performance characteristics determined by the [facility] Clinical Laboratories Department. It has not [...] perform high-complexity clinical testing.Electronically Signed OutDerek Shah [facility] OKLAH[facility] CITYlinical HistoryMass of lung [R91.8].Rapid On Site Interpretation1. [...] Negative. Dr. Phelps Interpretation provided at [facility], [address] [place] [address].Gross Description1. Prepared in Endoscopy were 10 slides [...] 11L, fine needle aspirate Cell block for Non-lithoduplicator operator (M), Level 2 H&E, Slides Made x 102: 4L, fine needle aspirate Cell block for Non-lithoduplicator operator (M), Level 2 H&E, Slides Made x 103: Station 7, fine needle aspirate Cell block for Non-lithoduplicator operator (M), Level 2 H&E, Slides Made x 64: 4R, fine needle aspirate Cell block for Non- lithoduplicator operator (M), Level 2 H&E, Slides Made x 45: Right upper lobe mass, fine needle aspirate Level 1 H&E, Level 2 unstained, Level 3 unstained, Level 4 unstained, Level 5 unstained, Level 6 unstained, Level 7 unstained, Level 8 unstained, Level 9 unstained, Level 10 H&E, Slides Made x 66: Bronchial washing Cell block for Non-lithoduplicator operator (M), Level 2 H&E, Non GYROSCOPE TECHNICIAN ThinPrepFee Code(s):1; 67291, 90868, 479094; 09477, 73019, 463489; 37100, 44845, 538660; 90143, 83020, 963491; 79354, 37680, 493485; 60427, 72175, 85394AHJQRA CULTUREon 96-65-9541Tyqsei identified Cx Nom (Unsp spec)FUNGAL SMEAR NO FUNGAL ELEMENTS SEEN ON DIRECT SMEAR CULTURE RESULTS NO FUNGUS ISOLATED AFTER [address] HospitalComment on above: Performed By: #### 580-1 ####[facility] ([id number])[address] [place] [address] 67[address]Sfhf cytometry specialist review Nasir (Unsp spec) [Interp]on 73-24-4433KNUF CYTOMETRY TISSUE/FLUID, NON CSF/NON BALSEE SEPARATE REPORT, REVIEWED BY PATHOLOGISTNoWilson Street HospitalComment on above:Performed By: #### 03974-2 ####[facility] ([id number])[address] [place] [address] [place] [address] 87758VPBEJ RESPIRATORY CULTUREon 98-23-6882Irjktxof identified Respiratory culture Nom (Sput)GRAM STAIN 10 to 24 WHITE BLOOD CELLS/LPF 0 to 1 SQUAMOUS EPITHELIAL CELLS/LPF 0 CILIATED EPITHELIAL CELLS/LPF NO ORGANISMS SEEN CULTURE RESULTS NO GROWTH [address] HospitalComment on above:Performed By: #### 624-7 ####[facility] ([id number])[address] [place] [address] [place] [address] 444[address]Dgpjpfv (P herminio) [Moles/Vol]on 37-06-2449MNZOUII W/REFLEX3.1 mmol/LHigh0.4-2.0[facility] Health SystemComment on above:Performed By: #### 68864-0 ####[facility] ([id number])[address] [place] [address] [place] [address] 00311ITQOZUK W/REFLEX1.6 mmol/LNormal0.4-2.0ProCincinnati Shriners HospitalComment on above:Result Comment: Result did not trigger repeat Lactate,re-order if needed.Performed By: #### 35396-1 ####[facility] ([id number])[address], [address] [place] [address] 401[address]PAFGKPV W/REFLEX 1.2 mmol/LNormal0.4-2.0ProCincinnati Shriners HospitalComment on above:Result Comment: Result did not trigger repeat Lactate,re-order if needed.Performed By: #### CBCA, CMP, 05725-8 ####[facility] ([id number])[address], [address] [place] [address] 515[address]Y. pneumoniae DNA DENIS+probe Ql (Unsp spec)on 06-26-2023 M PNEUMONIAE DNA PCRSee BelowNormalMemorial Health SystemComc.[facility]. [facility] on above: Result Comment: NOTETEST RESULT [...] was developed and its performance characteristicsdetermined by [facility]. It has not been cleared orapproved by the [place] Food and Drug Administration. This testwas performed in a CLIA certified laboratory and isintended for clinical purposes.Performed By: [facility] [place] [address]Emzvekmtqf Director: Kiko Coon MD, PhDCLIA Number: [id number]: SPUTUMPerformed By: #### 72559-0 ####[facility] ([id number])[address] [place] [address], [address] [place] [address] 609[address]Rhompaao Pathologyon 70-78-9882Erklfirw PathologyNormalMemorial Health SystemComment on above: Result Comment: [facility] [address] [place] [address] Surgical Pathology ConsultationPatient Name:TORSTEN HAYWOOD:1955 (Age: 67)Gender:MTaken:06/26/2023eported:06/30/2023hysician(s):Franky Rasmussen MD ([phone])Copy To:HAMMAD SALINAS M.D. Rec. #:[id number]: #[id number] Pathologic DiagnosisRight bronchus intermedius biopsy: Blood clot [...] onically Signed Outao/06/30/2023ndtomasz Phelps MDInterpretation performed at [facility], [address] [place] [address], [place] [address], License number: [id number].Clinical HistoryMass of lung.Gross DescriptionReceived in formalin, labeled YOBANY, right bronchus intermedius biopsy is a 0.8 x 0.4 x 0.1 cm aggregate of toro-cadena, feathery soft tissue fragments admixed with clotted blood. The specimen isfiltered and entirely submitted in one cassette. (1, ns, [id number], m6) MWmxw/06/26/2023GRSpecimen(s) Received Right bronchus intermedius biopsyFee Codes(s):1; 79370, 72458(2)XR CHEST 1 VWon 09-73-2585WO CHEST 1 VW NormalProCincinnati Shriners HospitalaPTT Coag (PPP) [Time]on 79-91-1551pSBB Coag (Bld) [Time]37 uRgyrqc55-83UmvWinjxlCincinnati Shriners HospitalComment on above:Performed By: #### 97211-3 ####[facility] ([id number])[address], [address] [place] [address] 65227VLHNE CULTUREon 68-89-3116Gqarbgmi identified Aer cx Nom (Bld)CULTURE RESULTS NO GROWTH 5 DAYSNormalMemorial Health SystemBacteria identified Aer cx Nom (Bld)CULTURE RESULTS NO GROWTH 5 DAYSNormalProMedica [facility] HospitalCBC AND AUTO DIFFon 06-25-2023 ABSOLUTE BASOPHIL0.1 X10E9/LNormal0.0-0.2Pro[facility]ica [facility] HospitalComment on above:Performed By: #### CBCA, CMP, 1987-07, 52759-5, 77997-7, 55595-6 ####[facility] ([id number])[address], [address] [place] [address] ABSOLUTE PGDPYLMAQM32.2 X10E9/LHigh1.5-6.6Memorial Health SystemComment on above:Performed By: #### CBCA, CMP, 1987-07, 34576-4, 98056-1, 21965-2 ####[facility] ([id number])[address], [address] [place] [address] 61511 Basophils/100 WBC (Bld)0.4 %NormalProCincinnati Shriners HospitalComment on above: Performed By: #### CBCA, CMP, 1987-07, 98311-6, 21379-5, 24606-4 ####[facility] ([id number])[address], [address] [place] [address] 30661 Eosinophils (Bld) [#/Vol]0.0 10*3/uLNormal0.0-0.4[facility] Comment on above:Performed By: #### CBCA, CMP, 1987-07, 92146-0, 85668-0, 58938-2 ####[facility] ([id number])[address], [address] [place] [address] 27901Mgkqfdqgako/100 WBC (Bld)0.2 %NormalProMedica Hilger HospitalComment on above:Performed By: #### CBCA, CMP, 1987-07, 37363-2, 70928-6, 60431-7 ####[facility] ([id number])[address], [address] [place] [address] 06544 Erythrocyte distribution width (RBC) [Ratio]16.8 %High11.5-15.0ProMedica Hilger HospitalComment on above:Performed By: #### CBCA, CMP, 1987-07, 52964-5, 59389-7, 52608-1 ####[facility] ([id number])[address] [address] [place] [address] 09584Ckjjcvldhz (Bld) [Volume fraction]34.8 %Ffn97-02ZdqFstxyc Hilger HospitalComment on above:Performed By: #### CBCA, CMP, 1987-07, 63440-8, 70218-5, 94285-5 ####[facility] ([id number])[address] [address] [place] [address] 70040Trwitmjtak (Bld) [Mass/Vol]11.8 g/dLLow13.0-17.0 Pro[facility]ica Hilger HospitalComment on above:Performed By: #### CBCA, CMP, 1987-07, 76238-4, 42117-5, 13316-9 ####[facility] ([id number])[address] [address] [place] [address] 48962Sejkobvmpuq (Bld) [#/Vol]1.9 10*3/uLNormal 1.0-3.5ProMedica Hilger HospitalComment on above:Performed By: #### CBCA, CMP, 1987-07, 57233-5, 61165-7, 39202-9 ####[facility] ([id number])[address], [address] [place] [address] 00829Ygbfaoyuper/100 WBC (Bld)9.0 % NormalProMedica Hilger HospitalComment on above:Performed By: #### CBCA, CMP, 1987-07, 32862-7, 99309-4, 54984-3 ####[facility] ([id number])[address], [address] [place] [address] 15856ZKS (RBC) [Entitic mass]30.4 ysDngbnf89-44PbqKkllgc [facility] HospitalComment on above:Performed By: #### CBCA, CMP, 1987-07, 82422-7, 19336-0, 10726-9 ####[facility] ( [id number])[address], [address] [place] [address] 60935OONW (RBC) [Mass/Vol]33.8 g/dL Nldloy24-33PkrLaomzg [facility] HospitalComment on above:Performed By: #### CBCA, CMP, 1987-07, 45908-7, 55759-5, 77983-0 ####[facility] ([id number])[address], [address] [place] [address] 59465EUO (RBC) [Entitic vol]90 fL Qgvcrk31-997DxpZodver [facility] HospitalComment on above:Performed By: #### CBCA, CMP, 1987-07, 68870-2, 50915-4, 49548-3 ####[facility] ([id number])[address] [address] [place] [address] 34944Qndcxewyw (Bld) [#/Vol]4.2 10*3/uLHigh0-0.9ProMedica Hilger HospitalComment on above:Performed By: #### CBCA, CMP, 1987-07, 19482-1, 80498-0, 35528-4 ####[facility] ([id number])[address], [address], [place] [address]Ckejbjvfj/100 WBC (Bld)19.6 %NormalProMedica Terrell HospitalComment on above:Performed By: #### CBCA, CMP, 1987-07, 01092-2, 83818-1, 87327-0 ####[facility] ([id number])[address], [address], [place] [address]Sogdaejfzoj/100 WBC (Bld)70.8 %NormalProMedica Terrell HospitalComment on above:Performed By: #### CBCA, CMP, 1987-07, 84100-5, 87049-2, 08464-4 ####[facility] ([id number])[address], [address], [place] [address]Mudnzmeb mean volume (Bld) [Entitic vol]8.1 fLNormal7-12ProMedica Terrell HospitalComment on above:Performed By: #### CBCA, CMP, 1987-07, 11913-1, 96811-6, 90426-2 ####[facility] ([id number])[address], [address], [place] [address]Vcqrgemae (Bld) [#/Vol]468 10*3/wOZeex590-209EqtJqmkck Terrell HospitalComment on above:Performed By: #### CBCA, CMP, 1987-07, 50510-5, 03716-2, 96068-1 ####[facility] ([id number])[address], [address], [place] [address]HKWDNNOFTCHHL3+ AbnormalNONEProMedica Terrell HospitalComment on above:Performed By: #### CBCA, CMP, 1987-07, 41823-7, 23342-9, 58145-7 ####[facility] ([id number])[address], [address], [place] [address]QHK COUNT3.87 X10E12/LLow 4.10-5.70ProCincinnati Shriners HospitalComment on above:Performed By: #### CBCTrang, CMP, 1987-07, 20220-4, 50601-4, 69431-8 ####[facility] ([id number])[address], [address], [place] [address]OFH (Bld) [#/Vol]21.5 10*3/uL High4.0-11.0ProCincinnati Shriners HospitalComment on above:Performed By: #### OG, CMP, 1987-07, 50463-4, 11967-7, 59569-6 ####[facility] ([address] [id number])[address], [address] [place], [place] [address]OYIOHLVASEYEC METABOLIC PANEL on 99-23-2411Viiunhi [Mass/Vol]2.2 g/dLLow3.2-5.3PNationwide Children's Hospital Comment on above:Performed By: #### OG, CMP, 1987-07, 01667-4, 29504-7, 42193-8 ####[facility] ([id number])[address], [address] [place], [place] [address]EOR [Catalytic activity/Vol]107 U/UFautxl09-034UgmPhtxotMemorial Health System Comment on above:Performed By: #### CBCA, CMP, 1987-07, 03761-5, 92600-6, 31955-2 ####[facility] ([id number])[address], [address] [place] [address]KIQ [Catalytic activity/Vol]24 U/LNormal0-40[facility] Comment on above:Performed By: #### CBCA, CMP, 1987-07, 28173-8, 58102-6, 32120-8 ####[facility] ([id number])[address], [address] [place] [address]Fumby gap [Moles/Vol]8 mmol/LNormal5-15ProMedica Terrell HospitalComment on above:Performed By: #### OG, CMP, 1987-07, 29788-6, 16603-1, 82213-2 ####[facility] ([id number])[address], [address], [place] [address]VWF [Catalytic activity/Vol]21 U/LNormal0-41ProMedica Terrell HospitalComment on above:Performed By: #### CBCA, CMP, 1987-07, 19173-9, 47354-3, 54831-3 ####[facility] ([id number])[address], [address] [place] [address] Bilirubin [Mass/Vol]0.9 mg/dLNormal0.3-1.2ProMedica Terrell HospitalComment on above:Performed By: #### MAGALI FOLEY, 1985-07, 15530-8, 27789-1, 40421-1 ####[facility] ([id number])[address], [address] [place] [address] Calcium [Mass/Vol]7.9 mg/dLLow8.5-10.5ProMedica Terrell HospitalComment on above: Performed By: #### MAGALI FOLEY, 1987-07, 49226-5, 09837-8, 84811-0 ####[facility] ([id number])[address], [address], [place] [address] Chloride [Moles/Vol]100 mmol/LAblibd95-840EamSmllqr Terrell HospitalComment on above:Performed By: #### CBCA, CMP, 1987-07, 97362-0, 92669-4, 07226-8 ####[facility] ([id number])[address], [address], [place] [address]AD0 [Moles/Vol]27 mmol/KSqlshb80-68RwvIbxsxs Terrell HospitalComment on above: Performed By: #### CBCA, CMP, 1987-07, 16700-8, 31400-4, 29553-9 ####[facility] ([id number])[address] [address], [place] [address] Creatinine [Mass/Vol]0.55 mg/dLLow0.60-1.30ProPomerene Hospital HospitalComment on above:Result Comment: METHOD TRACEABLE TO IDMS STANDARDPerformed By: #### MAGALI FOLEY, 1987-07, 50653-0, 52054-1, 86947-2 ####[facility] ([id number])[address] [address]fFCO (CKD-EPI) NON-RACE DEPENDENT>90Normal>59ProPomerene Hospital HospitalComment on above:Result Comment: Reported eGFR is based on theCKD-EPI 2020 equation that doesnot use a race coefficient.Performed By: #### MAGALI FOLEY, 1987-07, 24870-3, 68858-2, 70257-9 ####[facility] ([id number])[address] [address]Inblurv [Mass/Vol]98 mg/uVKjraev10-28GhbPsijyd [place] HospitalComment on above:Performed By: #### MAGALI FOLEY, 1987-07, 46779-6, 44449-1, 54590-4 ####[facility] ([id number])[address] [address] Potassium [Moles/Vol]3.9 mmol/LNormal3.5-5.0Pro[facility] Hospital HospitalComment on above:Performed By: #### MAGALI FOLEY, 1987-07, 38061-6, 01601-9, 25922-1 ####[facility] ([id number])[address] [address] Protein [Mass/Vol]5.0 g/dLLow6.0-8.0Pro[facility] Hospital HospitalComment on above: Performed By: #### MAGALI FOLEY, 1987-07, 31107-6, 00463-2, 36056-2 ####[facility] ([id number])[address], [address], [place] [address] Sodium [Moles/Vol]135 mmol/COyepif680-070XliKfapub [place] HospitalComment on above:Performed By: #### MAGALI FOLEY, 1987-07, 77748-0, 35989-2, 25257-6 ####[facility] ([id number])[address], [address] [place] [address]Qcxv nitrogen [Mass/Vol]18 mg/dLNormal5-27[facility] HospitalComment on above: Performed By: #### MAGALI FOLEY, 1987-07, 32076-9, 86579-2, 97169-4 ####[facility] ([id number])[address], [address] [place] [address]ALU [Mass/Vol]on 06-25-2023 REACTIVE CLXOZYA65.0 mg/dLHigh0.000-0.744PNationwide Children's HospitalComment on above:Performed By: #### MAGALI FOLEY, 1987-07, 91008-8, 88404-7, 79333-1 ####[facility] ([id number])[address] [address] [place] [address]BZU A1C (GLYCO-HGB)on 65-35-1703Wutidpc [Mass/Vol]143 mg/dLNormalProPomerene Hospital HospitalComment on above:Performed By: #### MAGALI FOLEY, 1987-07, 11337-0, 21769-0, 02895-3 ####[facility] ([id number])[address], [address] [place] [address]JfK3b (Bld) [Mass fraction]6.6 %High4.4-5.6ProP[facility] Hospital HospitalComment on above:Result Comment: NOTE ADA Guidelines Result HgbA1c Normal : less than 5.7 % Prediabetes : 5.7 % to 6.4 % Diabetes : > 6.4 %Use with caution in patients with abnormal hemoglobin variants asthe half-life of red blood cells and in vivo glycation rates areaffected.Performed By: #### CBCA, CMP, 1987-, 49515-7, 84001-0, 79659-0 ####[facility] ([id number])[address] [address]SLCBRJOGLF URINE AGon 06-25-2023L. pneumophila Ag IA Ql (U)LEGIONELLA URINE AG Negative (qualifier value) NEGATIVE FOR L.PNEUMOPHILA SEROGROUP 1 ANTIGENNormalMemorial Health System Comment on above:Performed By: #### 6447-7, 57708-2 ####[facility] ([id number])0 [facility] [address] [place] [address]Lnjagkp (P herminio) [Moles/Vol]on 31-35-7629HFIVQYV W/REFLEX2.0 mmol/LNormal0.4-2.0Memorial Health SystemComment on above:Result Comment: Result did not trigger repeat Lactate,re-order if needed.Performed By: #### 33800-8 ####[facility] ([id number]) [facility] [address] [place] [address]Zjmbghi [Moles/Vol]1.5 mmol/LNormal0.4-2.0Memorial Health SystemComment on above: Performed By: #### 88710-8 ####[facility] ([id number])[address] [place] [address] [place] [address]YCHGXPQ W/REFLEX2.6 mmol/LHigh0.4-2.0 ProMedicOhio[facility] Berger HospitalComment on above:Performed By: #### 47390-3 ####[facility] ([id number])[address], [address] [place] [address] LACTATE W/REFLEX1.3 mmol/LNormal0.4-2.0ProCincinnati Shriners HospitalComment on above:Result Comment: Result did not trigger repeat Lactate,re-order if needed. Performed By: #### MAGALI FOLEY, 1987-07, 80853-6, 41248-0, 75991-8 ####[facility] ([id number])[address], [address] [place] [address]MNAK PCR NASALon 84-65-5876ZZGA DNA DENIS+probe Ql (Unsp spec)NegativeNormalNEG Memorial Health SystemComment on above:Performed By: #### 39609-8 ####[facility] ([id number])[address], [address] [place] [address] Natriuretic peptide B [Mass/Vol]on 25-96-5914Xomrmcypbzt peptide B (Bld) [Mass/Vol]36 pg/mLNormal<100.0ProCincinnati Shriners HospitalComment on above: Performed By: #### MAGALI FOLEY, 1987-07, 64424-9, 69131-1, 48909-4 ####[facility] ([id number])[address], [address] [place] [address] Procalcitonin IA [Mass/Vol]on 02-73-6560QTVXXKRAEFQNS1.19 ng/mLHigh<0.05 Memorial Health SystemComment on above:Result Comment: NOTE<0.50 ng/mL - Low risk of severe sepsis and/or septic shock.<2.00 ng/mL -Recommend retesting within 6-24 hours.>2.00 ng/mL - High risk of sepsis and/or septic shock. Performed By: #### MAGALI FOLEY, 1987-07, 99742-8, 50000-0, 01916-3 ####[facility] ([id number])[address], [address], [place] [address]N PNEUMONIAE AG Uon 06-25-2023S. pneumoniae Ag Ql (U)NegativeNormalNEGProMedica Hilger HospitalComment on above:Performed By: #### 6447-7, 30833-7 ####[facility] ([id number])[address], [place] [address] URINALYSISon 21-57-8296Pqdewqaou Ql (U)NegativeNormalNEGProMedica Terrell HospitalBLOOD/HGBNegativeNormalNEGProMedica Terrell HospitalColor (U)YELLOWNormal YELLOWProMedica Terrell HospitalGlucose Ql (U)NegativeNormalNEGProMedica Terrell HospitalKetones Ql (U)NegativeNormalNEGProMedica [facility]field HospitalLeukocyte esterase Test strip Ql (U)NegativeNormalNEGProMedica Hilger HospitalMUCOUS PRESENTAbnormalNONEProMedWestern Reserve Hospital HospitalNitrite Ql (U)NegativeNormalNEG [facility] Hilger HospitalpH (U)6.0 [pH]Normal5.0-8.5ProMedWestern Reserve Hospital Hospital Protein Ql (U)30 mg/dLAbnormalNEGProMedica Hilger HospitalR.B.CELLS3 /hpfNormal 0-5PSelect Medical Specialty Hospital - Trumbullpecific gravity (U) [Rel density]1.046High 1.003-1.035ProMedica [facility]rell HospitalSQUAMOUS EPITHELIUM<8Qsipos0-8FesZfnemk [place] HospitalTURBIDITYCLEARNormalCLEARProMedica Terrell HospitalUrobilinogen Qn (U)4 {Alem'U}/dLHigh<1.1ProMedWestern Reserve Hospital HospitalW.B.CELLS2 /hpfNormal0-5 ProMedica [facility] HospitalURINE CULTUREon 64-22-8898Mpobgjlb identified Cx Nom (U)CULTURE RESULTS NO GROWTH AT <1000 CFU/mLNormalProMedica Hilger HospitalComment on above: Performed By: #### 630-4 ####[facility] ([id number])[address] [place], [place] [address]rOPQ Coag (PPP) [Time]on 44-45-1007gOSR Coag (Bld) [Time]37 jIkavgz46-42QfuGehkxv [facility] HospitalComment on above:Performed By: #### 28989-4 ####[facility] ([id number])[address], [address], [place] [address]Lnthtqrfcuhdcpyfag 68-40-8807Qinqwdppbxzihaij [id number]#1.00TIFLancaster Municipal HospitalConsultation Noteon 06-47-0306Qxssxvqmayiq Note [id number]#1.00[facility] HospitalAmbulatory Visit Summaryon 16-07-9734Pamzigjooa Visit Summary TORSTEN HAYWOOD :1955 Visit Date:06/04/2023 [...] EDT With: Yfn ESCOBEDO, Antoine Avila Where: [facility] [address] [place] [address]- \.br\ Medications\.br\ What How Much When Instructions\.br\ [...] numbers. This can be done either in [place] ([place] or metric measurements. Note that charts and online BMI calculators are available to help you find your BMI quickly and easily without having to do these calculations yourself.\.br\ To calculate your BMI in [place] ([place] measurements:\.br\ \.br\ 1. \.br\ Measure your [...] Disease Control and Prevention: www.cdc.gov\.br\ ? \.br\ [place] Heart [employer]: www.heart.org\.br\ ? \.br\ National Heart, Lung, and Blood [place]: www.nhlbi.nih.gov\.br\ Summary\.br\ ? \.br\ Body mass index (BMI) is a number that is calculated from a person's weight and height.\.br\ ? \.br\ BMI may help estimate how much of a person's weight is composed of fat. BMI can help identify those who may be at higher risk for certain medical problems.\.br\ ? \.br\ BMI can be measured using [place] measurements or metric measurements.\.br\ ? \.br\ BMI charts are used to identify whether you are underweight, normal weight, over weight, or obese.\.br\ This information is not intended to replace advice given to you by your health care provider. Make sure you discuss any questions you have with your health care provider.\.br\ Document Revised: 12/07/2019 Document Reviewed: 10/14/2019 [employer] Patient Education ? 2022 [employer].\.br\ \.br\[facility] HospitalCB w/ Auto Diffon 06-04-2023 Basophils/100 WBC (Bld)0.4 %Normal0.0-2.0[facility] HospitalComment on above:Performed By: #### 3506981, 5909503, 36755383, 5583192, 41350341 ####[facility] [address] [place] [address] Basophils/Leukocytes Auto (Bld) [Pure # fraction]0.1 E9/LNormal0.0-0.2FAshtabula General HospitalComment on above:Performed By: #### 5893523, 7128830, 23519886, 5472010, 19315365 ####[facility] [address] [place], [place] [address]Nrbczluzypq (Bld) [#/Vol]0.0 E9/LNormal0.0-0.5 [facility] HospitalComment on above:Performed By: #### 4506593, 1469474, 05640233, 0604076, 39132357 ####[facility] [address] [place] [address]Pcszsnmxjll/100 WBC (Bld)0.1 %Normal0.0-8.0[facility] HospitalComment on above:Performed By: #### 2876727, 0368416, 09749814, 4917518, 88614092 ####[address] [address]Fyzxuewtkgj distribution width (RBC) [Ratio]16.4 % High10.9-14.2FAshtabula General HospitalComment on above:Performed By: #### 5906995, 7091429, 64451375, 1935861, 53122853 ####[address] [address]Rifpcxhtio (Bld) [Volume fraction] 42.5 %Zabkrf81.7-49.0[facility] HospitalComment on above:Performed By: #### 7862223, 3384151, 91083737, 7065040, 95904413 ####[address] [address]Ytynglfttc (Bld) [Mass/Vol] 13.7 g/eWFhcmzn36.5-17.5FAshtabula General HospitalComment on above:Performed By: #### 4300172, 4230747, 59227967, 6447006, 62101143 ####[address] [address]Bgxobbpeynm (Bld) [#/Vol]1.2 E9/LNormal1.0-4.0[facility] HospitalComment on above:Performed By: #### 0720792, 7105362, 00441862, 5361004, 76822057 ####[address] [address]Afvnnwxqzcb/100 WBC (Bld)7.3 %Low 14.0-50.0[facility] HospitalComment on above:Performed By: #### 6159122, 5287059, 42165881, 7166340, 51646178 ####[facility] [address] [place] [address]KSY (RBC) [Entitic mass]30.0 pgNormal 27.0-34.0[facility] HospitalComment on above:Performed By: #### 1696920, 7282577, 48126485, 5847566, 50032641 ####[facility] [address] [place] [address]KJTU (RBC) [Mass/Vol]32.4 g/dLNormal 31.4-36.0[facility] HospitalComment on above:Performed By: #### 3227124, 8123076, 69822245, 8178709, 95140506 ####[facility] [address] [place] [address]IIP (RBC) [Entitic vol]92.6 fLNormal 80.0-100.0[facility] HospitalComment on above:Performed By: #### 3890201, 6322700, 99911329, 2057324, 23919986 ####[address] [address]Zfltzkxvm (Bld) [#/Vol]4.0 E9/LHigh 0.2-1.0[facility] HospitalComment on above:Result Comment: Review slide for monocytosisPerformed By: #### 5726465, 3615750, 95249220, 6492943, 49497364 ####[address] [address] Neutrophils (Bld) [#/Vol]10.8 E9/LHigh2.0-7.5FAshtabula General HospitalComment on above:Performed By: #### 3553284, 7844924, 25259747, 7057733, 87270506 ####[facility] [address] [address] Neutrophils/100 WBC (Bld)67.1 %Vpetdq44.0-75.0[facility] HospitalComment on above:Performed By: #### 3586787, 8514641, 58342310, 4763431, 70730052 ####[address] [address] Sihziike332.0 E9/TSpha158.0-500.0[facility] HospitalComment on above: Performed By: #### 1903875, 9935303, 67280363, 5409913, 08459020 ####[address] [address]Vjjbdodh mean volume (Bld) [Entitic vol]8.2 fLNormal6.4-10.8[facility] HospitalComment on above:Performed By: #### 2780592, 6704466, 05815336, 7368956, 54623084 ####[address] [address]EFM (Bld) [#/Vol]4.6 E12/LNormal4.3-5.9[facility] HospitalComment on above: Performed By: #### 1403248, 1928418, 88250475, 3021276, 36529071 ####[address] [address]DUT corrected for nucl RBC Auto (Bld) [#/Vol]16.1 E9/LHigh4.0-11.0[facility] Comment on above:Result Comment: Verified with slide reviewPerformed By: #### 0075279, 1737758, 50034841, 8144701, 31269463 ####[address] [place], [place] [address]EGMGUGHFWCqqntcu By: SYSTEM SYSTEM on 19-93-0225Rzqryhp [Mass/Vol]3.0 g/dLLow3.3 - 5.0 gm/dLRemisol Chem Albumin/Globulin [Mass ratio]0.8 {ratio}Low1.1 - 2.2Remisol ChemALP [Catalytic activity/Vol]118 [iU]/dHigh21 - 98 Int._Unit/LRemisol ChemALT No additional P-5'-P [Catalytic activity/Vol]36 [iU]/dNormal6 - 46 Int._Unit/LRemisol Chem Anion gap [Moles/Vol]15 mmol/LNormal6 - 16 mEq/LRemisol ChemAST [Catalytic activity/Vol]29 [iU]/dNormal5 - 43 Int._Unit/LRemisol ChemBilirubin [Mass/Vol] 1.2 mg/dLHigh0.0 - 1.1 mg/dLRemisol ChemCalcium [Mass/Vol]8.7 mg/dLLow8.9 - 11.1 mg/dLRemisol ChemChloride [Moles/Vol]92 mmol/QGsy358 - 111 mmol/LRemisol Chem Cholesterol [Mass/Vol]92 mg/aUVrv504 - 200 mg/dLRemisol ChemCholesterol in HDL [Mass/Vol]27 mg/dLInvalid Interpretation CodeRemisol ChemComment on above:Result Comment: '>= 60 LOW RISK' '<= 40 HIGH RISK'Cholesterol in LDL [Mass/Vol]54 mg/dLNormal<=129mg/dLRemisol ChemCholesterol in VLDL [Mass/Vol]13 mg/dLNormal7 - 40 mg/dLRemisol ChemCO2 [Moles/Vol]30 mmol/WVhogsn15 - 31 mmol/LRemisol ChemCreatinine [Mass/Vol]0.9 mg/dLNormal0.5 - 1.3 mg/dLRemisol NioxtKYN22 mL/min/1.73 l0Jmfpgs>=59mL/min/1.73 s3Fqgagxy ChemGlobulin (S) [Mass/Vol]3.7 g/dLNormal1.4 - 4.0 gm/dLRemisol Chem Glucose [Mass/Vol]104 mg/yHFpblzl82 - 199 mg/dLRemisol ChemPotassium [Moles/Vol] 4.2 mmol/LNormal3.5 - 5.3 mmol/LRemisol ChemProstate specific Ag [Mass/Vol]0.9 ng/mLNormal0.1 - 3.5 ng/mLRemisol ChemComment on above:Interpretive Data: The concentration of PSA determined by different manufacturers can vary due to di fferences in assay methods and reagent specificity. Values obtained from different assay methods cannot be used interchangeably. The methodology used for this result was chemiluminescence using [employer] PSA reagent.Protein [Mass/Vol]6.7 g/dLNormal6.0 - 7.8 gm/dLRemisol ChemSodium [Moles/Vol]133 mmol/VMtq826 - 145 mmol/LRemisol ChemTriglyceride [Mass/Vol]66 mg/dLNormal<=149mg/dLRemisol ChemUrea nitrogen [Mass/Vol]15 mg/dLNormal5 - 21 mg/dLRemisol ChemUrea nitrogen/Creatinine [Mass ratio]17 mg/xgLyefqf28 - 20 Remisol ChemCMPon 08-65-9769Ofpsykr [Mass/Vol]3.0 g/dLLow3.3-5.0[facility] HospitalComment on above:Performed By: #### 9528087, 3922500, 61380197, 2277795, 57213372 ####[facility] [address] [place], [place] [address]Aznmwjw/Globulin (S) [Mass conc ratio]0.8Low1.1-2.2[facility] Medical CenterComment on above:Performed By: #### 5115420, 6915978, 01897573, 0659667, 97090560 ####[facility] [address] [place], [place] [address]NQP [Catalytic activity/Vol]118 Int._Unit/LHigh 21-98[facility] HospitalComment on above:Performed By: #### 2041869, 3081895, 95022231, 6389660, 62815860 ####[facility] [address] [place], [place] [address]YTB No additional P-5'-P [Catalytic activity/Vol]36 Int._Unit/LNormal6-46[facility] HospitalComment on above:Performed By: #### 5459829, 9780512, 87932282, 3735602, 75286431 ####[address] [address]Ctrhm gap [Moles/Vol]15 mmol/LNormal6-16[facility] HospitalComment on above: Performed By: #### 7517313, 4173223, 47824716, 7167967, 96505337 ####[address] [address]CZU [Catalytic activity/Vol]29 Int._Unit/LNormal5-43[facility] HospitalComment on above:Performed By: #### 3497673, 6341518, 59312256, 2535368, 05186366 ####[address] [address] Bilirubin [Mass/Vol]1.2 mg/dLHigh0.0-1.1FAshtabula General HospitalComment on above:Performed By: #### 3906700, 0667491, 37393845, 6486185, 80904596 ####[address] [address] Calcium [Mass/Vol]8.7 mg/dLLow8.9-11.1FAshtabula General HospitalComment on above:Performed By: #### 9536784, 5846365, 61726278, 1849799, 63009278 ####[address] [address] Chloride [Moles/Vol]92 mmol/FQbx082-730TafyeqMarietta Memorial HospitalComment on above:Performed By: #### 1703585, 4091406, 29342359, 3589475, 61736845 ####[address] [address]PF1 [Moles/Vol]30 mmol/RNhoelq17-67RseqkuMarietta Memorial HospitalComment on above: Performed By: #### 0444063, 3133380, 74979719, 0036848, 26754205 ####[address] [address]Afgeqekavu [Mass/Vol]0.9 mg/dLNormal0.5-1.3FAshtabula General HospitalComment on above: Performed By: #### 6668030, 7332727, 07586332, 7009845, 56850282 ####[address] [address]Melhjowx (S) [Mass/Vol]3.7 g/dLNormal1.4-4.0[facility] HospitalComment on above: Performed By: #### 3338800, 1462634, 81562536, 6501703, 73105802 ####[address] [address]Xaxzmgl [Mass/Vol]104 mg/wDBiwlre43-134IwaopqMarietta Memorial HospitalComment on above: Performed By: #### 9182982, 7551901, 33645672, 5808773, 05749139 ####[address] [address]Aqyjfzusx [Moles/Vol]4.2 mmol/LNormal3.5-5.3FAshtabula General HospitalComment on above: Performed By: #### 5204740, 5936354, 72830630, 4347721, 62671471 ####[address] [address]Ilejubq [Mass/Vol]6.7 g/dLNormal6.0-7.8[facility] HospitalComment on above: Performed By: #### 7480192, 9863147, 64405901, 0463587, 61398534 ####[address] [address]Bdsdqn [Moles/Vol]133 mmol/ZHto300-486IthwtiMarietta Memorial HospitalComment on above: Performed By: #### 3008638, 8238031, 28854166, 0942335, 08797921 ####[facility] [address] [place], [place] [address]Bgsd nitrogen [Mass/Vol]15 mg/dLNormal5-21[facility] HospitalComment on above: Performed By: #### 2750025, 3675049, 22467093, 9954265, 68226183 ####[facility] [address] [place], [place] [address]Pgss nitrogen/Creatinine [Mass ratio]17 No GgkbaCsuhkk35-57SfvhouMarietta Memorial HospitalComment on above:Performed By: #### 8026804, 5144159, 08516710, 3917167, 01382950 ####[facility] [address] [place], [place] [address]Lwybvh Medicine Office/Clinic Noteon 73-51-1362Fgfixi Medicine Office/Clinic NoteI Staff Torsten is a 67 year old male presenting to establish care Establish Care: History: CABG X 5, Factor V Any previous diagnosis: 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 [facility] When was your last doctors visit: Oct or dec 20 w/ mud trucker Last provider: Dr Hobbs in [place] hasn't seen anyone since Any recent labs: [...] asplenia HTN (hypertension) Hx (more content not included)...[facility] MemorialComment on above:Result Comment: Electronically Signed By: Yfn [...] 14.2 %Remisol HemeHematocrit (Bld) [Volume fraction]42.5 % Daoncg42.7 - 49.0 %Remisol HemeHemoglobin (Bld) [Mass/Vol]13.7 g/hEEqmcyb97.5 - 17.5 gm/dLRemisol HemeLymphocytes (Bld) [#/Vol]1.2 E9/LNormal1.0 - 4.0 E9/L Remisol HemeLymphocytes/100 WBC (Bld)7.3 %Low14.0 - 50.0 %Remisol HemeMCH (RBC) [Entitic mass]30.0 nlMoobsd17.0 - 34.0 pgRemisol HemeMCHC (RBC) [Mass/Vol]32.4 g/iOUkglxn52.4 - 36.0 gm/dLRemisol HemeMCV (RBC) [Entitic vol]92.6 lEEhluxv85.0 - 100.0 fLRemisol HemeMonocytes (Bld) [#/Vol]4.0 E9/LHigh0.2 - 1.0 E9/LRemisol HemeComment on above:Result Comment: Review slide for monocytosisMonocytes/100 WBC (Bld)25.1 %High4.0 - 14.0 %Remisol HemeNeutrophils (Bld) [#/Vol]10.8 E9/L High2.0 - 7.5 E9/LRemisol HemeNeutrophils/100 WBC (Bld)67.1 %Khlyhf23.0 - 75.0 % Remisol RothChhqqrvp422.0 E9/HZezd940.0 - 500.0 E9/LRemisol HemePlatelet mean volume (Bld) [Entitic vol]8.2 fLNormal6.4 - 10.8 fLRemisol HemeRBC (Bld) [#/Vol] 4.6 E12/LNormal4.3 - 5.9 E12/LRemisol HemeWBC corrected for nucl RBC Auto (Bld) [#/Vol]16.1 E9/LHigh4.0 - 11.0 E9/LRemisol HemeComment on above:Result Comment: Verified with slide reviewLipid Panelon [id number] [Mass/Vol]92 mg/dL Xbv226-440HhpizxMarietta Memorial HospitalComment on above:Performed By: #### [id number], [id number], [id number], [id number], [id number] ####[facility] [address], [place] [address]Srqzlpjpqpl in HDL [Mass/Vol]27 mg/dL Invalid Interpretation CodeMarietta Memorial HospitalComment on above:Result Comment: '>= 60 LOW RISK' '<= 40 HIGH RISK'Performed By: #### [id number], [id number], [id number], [id number], [id number] ####[facility] [address], [place] [address]Ezrybvcaeoi in LDL [Mass/Vol]54 mg/dLNormal<=129[facility] Comment on above:Performed By: #### [id number], [id number], [id number], [id number], [id number] ####[facility] [address], [place] [address]Dkyfhwbugyt in VLDL [Mass/Vol]13 mg/dLNormal7-40[facility] Comment on above:Performed By: #### [id number], [id number], [id number], [id number], [id number] ####[facility] [address] AveNoreastern [place], [place] [address]Zzvxkzranbwr [Mass/Vol]66 mg/dLNormal<=149[facility] Comment on above:Performed By: #### [id number], [id number], [id number], [id number], [id number] ####[facility] [address], [place] [address]JJN Screen, Totalon 11-04-7116Ilusicwe specific Ag [Mass/Vol]0.9 ng/mL Normal0.1-3.5FAshtabula General HospitalComment on above:Result Comment: The concentration of PSA determined by different manufacturers can vary due to diffe rences in assay methods and reagent specificity. Values obtained from different assay methods cannot be used interchangeably. The methodology used for this result was chemiluminescence using [employer]'s Access [employer] PSA reagent.Performed By: #### [id number], [id number], [id number], [id number], [id number] ####[facility] [address] [place] [address] Patient Educationon 02-06-6715Qibmmca EducationNutrition BMI for Adults What is BMI? [...] numbers. This can be done either in [place] ([place] or metric measurements. Note that charts and online BMI calculators are available to help you find your BMI quickly and easily without having to do these calculations yourself. To calculate your BMI in [place] ([place] measurements: 1. Measure your weight in [...] for Disease Control and Prevention: www.cdc.gov ? [place] Heart Association: www.heart.org ? National Heart, Lung, and Blood [place]: www.nhlbi.nih.gov Summary ? Body mass index (BMI) is a number that is calculated from a person's weight and height. ? BMI may help estimate how much of a person's weight is composed of fat. BMI can help identify those who may be at higher risk for certain medical problems. ? BMI can be measured using Andorran measurements or metric measurements. ? BMI charts are used to identify whether you are underweight, normal weight, overweight, or obese. This information is not intended to replace advice given to you by your health care provider. Make sure you discuss any questions you have with your health care provider. Document Revised: 12/07/2019 Document Reviewed: 10/14/2019 ElseAnghami Patient Education ? 2022 [employer].[facility] eGFRon 10-81-6493nURI42 mL/min/1.73 m9Tynvfh>=59[facility] Comment on above:Order Comment: Order added by Discern Expert.Performed By: #### [id number], [id number], [id number], [id number], [id number] ####[facility] [address] [place], [place] [address]KRI AUTO DIFFon 56-83-1213GUZU #0.1 103/ulNormal0.0-0.1Parkview HealthComment on above:Performed By: #### CBC #### [facility] [address] [place] [address] Dr. Kaylie CentenoBasophils/100 WBC (Bld)0.9 %Normal0.2-2.0[facility] Comment on above:Performed By: #### CBC #### [facility] [address] [place] [address] Dr. Kaylie Malin #0.3 103/ulNormal0.0-0.7The [facility] HospitalComment on above: Performed By: #### CBC #### [facility] [address] [place] [address] Dr. Kaylie Patinoosinophils/100 WBC (Bld)2.9 %Normal0.9-7.0[facility] Comment on above:Performed By: #### CBC #### [facility] [address] [place] [address] Dr. Kaylie Patinorythrocyte distribution width (RBC) [Ratio]14.4 %Uwzfrm46.0-15.0 Park[facility] HealthComment on above:Performed By: #### CBC #### [facility] [address] [place] [address] Dr. Kaylie CentenoHematocrit (Bld) [Volume fraction]47.0 %Pyfobl57.0-54.0The [facility] HospitalComment on above:Performed By: #### CBC #### [facility] [address] [place] [address] Dr. Kaylie CentenoHemoglobin (Bld) [Mass/Vol]15.6 g/zUCqgmnh51.0-18.0The [facility] HospitalComment on above:Performed By: #### CBC #### [facility] [address] [place] [address] Dr. Kaylie Vazquez #0.03 10e3/ulNormal0.00-0.03The [facility] HospitalComment on above:Performed By: #### CBC #### [facility] [address] [place] [address] Dr. Kaylie Vazquez %0.3 %Normal0.0-0.5The [facility] HospitalComment on above: Performed By: #### CBC #### [facility] [address] [place] [address] Dr. Kaylie Cage #2.9 103/ulNormal1.2-3.8The [facility] HospitalComment on above:Performed By: #### CBC #### [facility] [address] [place] [address] Dr. Kaylie Hadleymphocytes/100 WBC (Bld)25.7 %Cwkndp90.5-60.0The [facility] HospitalComment on above:Performed By: #### CBC #### [facility] [address] [place] [address] Dr. Kaylie MainUAL DIFF REQNONormalThe [facility] HospitalComment on above: Performed By: #### CBC #### [facility] [address] [place] [address] Dr. Kaylie Pittman (RBC) [Entitic mass]33.3 adSddhwz71.9-34.0The [facility] HospitalComment on above:Performed By: #### CBC #### [facility] [address] [place] [address] Dr. Kaylie PattenHC (RBC) [Mass/Vol]33.2 g/yFKlssdc71.9-35.2The [facility] HospitalComment on above:Performed By: #### CBC #### [facility] [address] [address] [address] Kaylie PattenV (RBC) [Entitic vol]100.2 fLCritically high80.0-94.0The [facility] HospitalComment on above:Performed By: #### CBC #### [facility] [address] [address] [address] Kaylie Constantino #2.0 103/ulCritically high0.3-0.8The [facility] Comment on above:Performed By: #### CBC #### [facility] [address] [place] [address] Dr. Kaylie Tobarocytes/100 WBC (Bld)17.7 %Critically high1.7-12.0The [facility] HospitalComment on above:Performed By: #### CBC #### [facility] [address] [place] [address] Dr. Kaylie Ruiz #5.9 103/ulNormal1.4-6.5The [facility] HospitalComment on above:Performed By: #### CBC #### [facility] [address] [place] [address] Dr. Kaylie Boydutrophils/100 WBC (Bld)52.5 %Njtupb52.0-75.0The [facility] HospitalComment on above:Performed By: #### CBC #### [facility] [address] [place] [address] Dr. Kaylie Mosherlet mean volume (Bld) [Entitic vol]10.3 fLNormal9.5-13.5The [facility] HospitalComment on above:Performed By: #### CBC #### [facility] [address] [place] [address] Dr. Kaylie MilesT354 103/xzIjqlxg384-332Eug [facility] HospitalComment on above: Performed By: #### CBC #### [facility] [address] [address] [address] Kaylie CentenoRBC4.69 106/ulCritically low4.70-6.10The [facility] HospitalComment on above:Performed By: #### CBC #### [facility] [address] [address] [address] Kaylie CentenoWBC11.2 103/ulCritically high4.0-11.0The [facility] HospitalComment on above:Performed By: #### CBC #### [facility] [address] [address] [address] Kaylie CentenoGLYCOHEMOGLOBIN A1Con 09-41-6537TIO RECOMMENDATIONSEE BELOWAultman Orrville HospitalComment on above:Result Comment: ADA RECOMMENDED LIMIT 4.0 - 6.0 ADA THERAPEUTIC TARGET < 7.0 ACTION SUGGESTED > 7.0Performed By: #### A1C #### [facility] [address] [place] [address] Dr. Kaylie CentenoGlucose [Mass/Vol]137 mg/dLNormHolzer Medical Center – JacksonComment on above:Performed By: #### A1C #### [facility] [address] [place] [address] Dr. Kaylie CentenoHbA1c (Bld) [Mass fraction]6.4 %Critically high4.5-6.2The [facility] HospitalComment on above:Performed By: #### A1C #### [facility] [address] [place] [address] Dr. Kaylie CentenoLIPID PROFILEon 92-51-8933DKLQ-HDL RATIO NORMSEE [facility] City HospitalComment on above:Result Comment: 3.3 - 4.4 LOW RISK 4.4 - 7.1 AVERAGE RISK 7.1 - 11.0 MODERATE RISK >11.0 HIGH RISKPerformed By: #### CMP, LIPID #### [facility] [address] [place] [address] Dr. Kaylie CentenoCholesterol [Mass/Vol]148 mg/dLNormal<=200The [facility] Comment on above:Performed By: #### CMP, LIPID #### [facility] [address] [place], [place] [address] Dr. Kaylie CentenoCholesterol in HDL [Mass/Vol]46 mg/uFQhzlhw82-77[facility] on above:Performed By: #### CMP, LIPID #### [facility] [address] [place] [address] Dr. Kaylie CentenoCholesterol in LDL [Mass/Vol]65.0 mg/dLBarney Children's Medical CenterComment on above:Performed By: #### CMP, LIPID #### [facility] [address] [place] [address] Dr. Kaylie Sylvesterestervalentine.total/Cholesterol in HDL [Mass ratio]3.2 {ratio} NormalThe [facility] HospitalComc.s. [facility] on above:Performed By: #### CMP, LIPID #### [facility] [address] [place] [address] Dr. Kaylie Sanford NORMAL> or = 60 mg/dl - LOW CARDIOVASCULAR RISK <40 mg/dl - HIGH CARDIOVASCULAR RISKBarney Children's Medical CenterComc.s. [facility] on above:Performed By: #### CMP, LIPID #### [facility] [address] [place] [address] Dr. Kaylie Jasso CALC NORMALSEE BELOWBarney Children's Medical CenterComc.s. [facility] on above:Result Comment: <100 mg/dl OPTIMAL 100 - 129 mg/dl NEAR OR ABOVE OPTIMAL 130 - 159 mg/dl BORDERLINE HIGH 160 - 189 mg/dl HIGH >190 mg/dl VERY HIGH Performed By: #### CMP, LIPID #### [facility] [address] [place] [address] Dr. Kaylie CentenoTriglyceride [Mass/Vol]185 mg/dLCritically high<=150The [facility] HospitalComc.[facility]. [facility] on above:Performed By: #### CMP, LIPID #### [facility] [address] [place] [address] Dr. Kaylie CentenoVLDL CALC37.0 mg/dLMercy Health Willard Hospital on above: Performed By: #### CMP, LIPID #### [facility] [address] [place] [address] Dr. Kaylie CentenoPROF 14(COMP METB)on 58-01-1538Qicjfxo [Mass/Vol]3.7 g/dLNormal 3.4-5.0The [facility] HospitalComment on above:Performed By: #### CMP, LIPID #### [facility] [address] [place] [address] Dr. Kaylie CentenoAlbumin/Globulin [Mass ratio]1.0 {ratio}NormalThe [facility] HospitalComment on above:Performed By: #### CMP, LIPID #### [facility] [address] [place] [address] Dr. Kaylie Marquez [Catalytic activity/Vol]79 U/GYyroki56-829Cxc [facility] HospitalComment on above:Performed By: #### CMP, LIPID #### [facility] [address] [place] [address] Dr. Kaylie Marquez [Catalytic activity/Vol]27 U/RZoqzsj23-90Pdd [facility] HospitalComment on above:Performed By: #### CMP, LIPID #### [facility] [address] [place] [address] Dr. Kaylie Carlson gap [Moles/Vol]6.3 mmol/LNormalThe [facility] HospitalComment on above:Performed By: #### CMP, LIPID #### [facility] [address] [place] [address] Dr. Kaylie Vasques [Catalytic activity/Vol]17 U/OKnoyrz80-67Ubo [facility] HospitalComment on above:Performed By: #### CMP, LIPID #### [facility] [address] [place] [address] Dr. Kaylie CentenoBilirubin [Mass/Vol]0.7 mg/dLNormal0.2-1.0The [facility] Comment on above:Performed By: #### CMP, LIPID #### [facility] [address] [place] [address] Dr. Kaylie CentenoCalcium [Mass/Vol]9.0 mg/dLNormal8.5-10.1The [facility] Comment on above:Performed By: #### CMP, LIPID #### [facility] [address] [place] [address] Dr. Kaylie CentenoChloride [Moles/Vol]101 mmol/JRyghqe94-891Irs [facility] Comment on above:Performed By: #### CMP, LIPID #### [facility] [address] [address] [address] Kaylie CentenoCO2 [Moles/Vol]35.6 mmol/LCritically high21.0-32.0The [facility] HospitalComment on above:Performed By: #### CMP, LIPID #### [facility] [address] [place] [address] Dr. Kyalie CentenoCreatinine [Mass/Vol]0.91 mg/dLNormal0.70-1.30The [facility] HospitalComment on above:Performed By: #### CMP, LIPID #### [facility] [address] [place] [address] Dr. Kaylie PatinoGFR-AF BELGIAN>60Normal>=60The [facility] HospitalComment on above:Performed By: #### CMP, LIPID #### [facility] [address] [place] [address] Dr. Kaylie PatinoGFR-NON AF BELGIAN>60Normal>=60The [facility] HospitalComment on above:Performed By: #### CMP, LIPID #### [facility] [address] [place] [address] Dr. Kaylie CentenoGlobulin (S) [Mass/Vol]3.8 g/dLNormalThe [facility] HospitalComment on above:Performed By: #### CMP, LIPID #### [facility] [address] [place] [address] Dr. Kaylie CentenoGlucose [Mass/Vol]87 mg/qZRoyqfp13-070Zwx [facility] Comment on above:Performed By: #### CMP, LIPID #### [facility] [address] [address] [address] Kaylie CentenoPotassium [Moles/Vol]3.9 mmol/LNormal3.5-5.1The [facility] Comment on above:Performed By: #### CMP, LIPID #### [facility] [address] [address] [address] Kaylie CentenoProtein [Mass/Vol]7.5 g/dLNormal6.4-8.2The [facility] Comment on above:Performed By: #### CMP, LIPID #### [facility] [address] [address] [address] Kaylie CentenoSodium [Moles/Vol]139 mmol/EEeiubb004-542Jui [facility] Comment on above:Performed By: #### CMP, LIPID #### [facility] [address] [address] [address] Kaylie CentenoUrea nitrogen [Mass/Vol]11.0 mg/dLNormal7.0-18.0The [facility] HospitalComment on above:Performed By: #### CMP, LIPID #### [facility] [address] [place] [address] Dr. Kaylie Leo nitrogen/Creatinine [Mass ratio]12.1 mg/mgNormalThe [facility] HospitalComment on above:Performed By: #### CMP, LIPID #### [facility] [address] [place] [address] Dr. Kaylie CentenoXR pre/post mri xrayon 64-02-7431HX pre/[place] [address] MRI Report Signed Patient: Torsten Haywood MR#: [id number] 2097 : 1955 Acct:[id number] Age/Sex: 64 / M ADM Date: 09/25/20 Loc: Room: Type: [facility] [address] Attending Dr: Felipe Frank DO Ordering Provider: Jordan Frank DO Date of Service: 09/25/20 MR/MR lumbar spine wo con: R29.898 LEG WEAKNESS BILATERAL ([id number]) XR/XR pre/post mri xray: R29.898 LEG WEAKNESS [...] Esperanza Humphries M.D.09/25/2020 10:48 AM Dictation Location: [address] [address] Transcribed By: [facility] 09/25/20 1048 Dictated By: Esperanza Humphries II, MD 09/25/20 1041 Signed By: 09/25/20 1048[facility] 66-75-1668VFPVN AND [facility] HospitalDepartment of Cjr[address] [place] [address] Patien t Name: TORSTEN HAYWOOD : 1955Sex: MAge: Race: WhiteMRN: [id number]. Location: OUTPPatient Status: DVisit #: [id number] Date: 04/30/2017 7:00:00 AMCompleted Date: 04/30/2017 08:06 AMRequesting Provider: CARLA CERVANTES Attending Provider: CARLA CERVANTES Report Copy To: Signs & Symptoms: Post Pacemaker/AICD PlacementHistory: Patient history not availableComments: Check Pacemaker/AICD Lead Position, Chest X-ray PA \EANDE\ LAT in Dept ;DO NOT lift affected arm above shoulder. S/P pacemaker/ICD implant. Verify lead placementExam: CHEST AND LATERALAccession #: [id number] CHEST AND LATERAL 04/30/2017 8:06 AM EST [...] findings. Electronically signed by:Darcie Begum. Transcribed by: [email or web address], User Resident: HAM TROTTERElectronically Signed by: DARCIE BEGUM @ 04/30/2017 10:35 PMI personally read this/these film(s) with this residentPeoples HospitalComment on above:Order Comment: << On admission If not done in ED>>No: Do not add to previous drawCardiovascular Lab Reporton 04-30-2017 Cardiovascular Lab ReportUnChillicothe [facility] [id number] Physician: Carla MurphyDepartment of Sydnie CervantesMedicine Service Date: 04/29/2017Division of Birthdate: 1955Cardiology Room #: 3CD [id number] [address]Serv[address]Car[id number] [place], [place] [address]Qqscx Fax Cardiovascular Laboratory ReportINDICATION: Mr. Haywood [facility] a [facility]. He has ischemic c ardiomyopathy [...] He has nowide QRS complex to warrant OPTICS TEST TECHNICIAN therapy nor does he have a history ofbradycardia or any bradycardia pacing indication.He does have factor V Leiden deficiency for which he takes Eliquis.Eliquis was held for 36 hours.Consent was obtained from his power of assistant city attorney. I did discuss the casewith the patient and the power of at the neuromedical center prior to the case. Her name Chiara [...] mL. The device wasa Medtronic Visia, #[id number]. The leadwas a Medtronic 6935, #[id number]. Sensed R-waves were 8.5mV, pacingimpedance 513 ohms, high-voltage impedance 74 ohms, pacing threshold at 0.5milliseconds was 0.75 V.ASSESSMENT:1. Conscious sedation.2. Fluoroscopy.3. Contrast injection for venography.4. Venography of the left upper extremity.5. Placement of a single-chamber ICD.Electronically Signed by:Carla Cervantes M.D. 05/04/2017 09:54 A Carla Cervantes M.D.Date Dict: 04/29/2017/10:26 Trang/Carla Cervantes M.D.Date Trans: 04/30/2017 07:04 Trang/[place]and[place]_JN:[id number]: Francisco Tena M.D. Heart Failure/ Transplant Mailstop [address] [facility] [address] Darin Perea D.O. [facility]5 [facility] [address]KbgbgnNffPeoples HospitalDischarge Summaryon 08-06-2420Jdtaddjjz SummaryMR#: [id number] [facility] Name: Torsten Haywood Admitted: 12/12/2016Discharged: 12/29/2016 Date of : 1955 Physician: Torsten Yepez M.D. DISCHARGE SUMMARYPRIMARY DIAGNOSIS: Coronary artery disease, ischemic cardiomyopathy.SUMMARY: Mr. Haywood is a 60-year-old male with CHF, who [facility] and was transferred [facility].He underwent coronary angiography, and was [...] weeks after surgery. [facility] for education regarding [...] from me. Date Dict: 01/12/2017/01:51 P/JOHN Jones, REAL ESTATE INVESTMENT ANALYST-CDate Trans: 01/13/2017 05:24 A/SuzannaN_JN:[id number]: Esperanza Shore M.D. [address] [place] [address] Dept. Of Surgery, S [address] [facility] [address]SzmbwpWkbPeoples Hospital BASIC METABOLIC PANELon 49-91-1231Kcjebgf8.6 mg/dLNormal8.6-10.3The [facility] HospitalComment on above:Order Comment: << On admission If not done in ED>>No: Do not add to previous drawPerformed By: #### 20569, 40980, 84636, 93457, 69517 ####[facility] [place] [address], GYVIweonuvf06 mmol/UIxh32-323Qbe [facility] HospitalComment on above:Order Comment: << On admission If not done in ED>>No: Do not add to previous drawPerformed By: #### 97289, 91552, 11168, 60097, 65793 ####[facility] [place] [address], XASAH134 mmol/CMgvhcv17-77Wzg [facility] Comment on above:Order Comment: << On admission If not done in ED>>No: Do not add to previous drawPerformed By: #### 56181, 55176, 62912, 50415, 15500 ####[facility] [place] [address], [facility] Creatinine1.05 mg/dLNormal0.70-1.30The [facility] Comment on above:Order Comment: << On admission If not done in ED>>No: Do not add to previous drawPerformed By: #### 88834, 64056, 41345, 73977, 05089 ####[facility] [facility] [address], [facility] eGFR (black)mL/min/{1.73_m2}Normal>60The [facility] Comment on above:Order Comment: << On admission If not done in ED>>No: Do not add to previous drawPerformed By: #### 81761, 67626, 70575, 44841, 31189 ####[facility] [place] [address], [facility] eGFR (non-black)mL/min/{1.73_m2}Normal>60The [facility] Comment on above:Order Comment: << On admission If not done in ED>>No: Do not add to previous drawPerformed By: #### 30588, 29624, 96109, 31519, 21787 ####[facility] [place] [address], [facility] Glucose mass euoz784 mg/iPPcre82-814Lda [facility] Comment on above:Order Comment: << On admission If not done in ED>>No: Do not add to previous drawPerformed By: #### 90224, 24131, 09280, 54071, 79385 ####[facility] [place] [address], [facility] Potassium molar conc3.5 mmol/LNormal3.5-5.1The [facility] HospitalComment on above:Order Comment: << On admission If not done in ED>>No: Do not add to previous drawPerformed By: #### 61943, 48175, 90871, 43960, 23921 ####[facility] [place] [address], [facility] Ntnitv710 mmol/MXph069-501Ucd [facility] HospitalComment on above:Order Comment: << On admission If not done in ED>>No: Do not add to previous drawPerformed By: #### 85840, 39745, 45210, 31553, 30354 ####[facility] [place] [address], [facility]ICAL CENTERUrea atgtejbj58 mg/dLHigh7-25The [facility] HospitalComment on above:Order Comment: << On admission If not done in ED>>No: Do not add to previous draw Performed By: #### 70902, 58812, 25316, 10617, 98860 ####[facility] [place] [address], [facility] MEDICAL CENTERCBC COMPLETE BLOOD COUNTon 91-70-6909Ckgecyqnhnq distribution width Auto Ratio (RBC)13.7 %Mpilvx94.5-16.9 The [facility] HospitalComment on above:Order Comment: << On admission If not done in ED>>No: Do not add to previous drawPerformed By: #### 96619, 34269, 66105, 88615, 35253 ####[facility] [place] [address], [facility] MEDICAL CENTERErythrocytes (RBC)2.54 mill/hf8Wxh3.30-5.90 The [facility] HospitalComment on above:Order Comment: << On admission If not done in ED>>No: Do not add to previous drawPerformed By: #### 21423, 82466, 12849, 73410, 12333 ####[facility] [place] [address], [facility] MEDICAL CENTERHematocrit (HCT)25.4 %Low39.0-55.0The [facility] HospitalComment on above:Order Comment: << On admission If not done in ED>>No: Do not add to previous drawPerformed By: #### 73736, 04565, 73940, 56151, 16101 ####[facility] [place] [address], [facility] MEDICAL CENTERHemoglobin mass conc (Bld)8.4 g/dLLow 13.9-16.3The [facility] HospitalComment on above:Order Comment: << On admission If not done in ED>>No: Do not add to previous drawPerformed By: #### 07247, 27642, 06911, 21112, 39704 ####[facility] [place] [address], AVTOIG10.2 aaOsxw55.0-32.0The [facility] HospitalComment on above:Order Comment: << On admission If not done in ED>>No: Do not add to previous drawPerformed By: #### 05585, 95889, 02731, 36203, 11151 ####[facility] [place] [address], [facility] MEDICAL CENTERMCHC mass conc (RBC)33.1 g/aBUalxcw50.0-36.0 The [facility] HospitalComment on above:Order Comment: << On admission If not done in ED>>No: Do not add to previous drawPerformed By: #### 42379, 53356, 53361, 23578, 81937 ####[facility] [facility] [address], ZHZTDU531.1 tMTaik40.0-100.0The [facility] HospitalComment on above:Order Comment: << On admission If not done in ED>>No: Do not add to previous drawPerformed By: #### 54979, 13706, 51158, 36470, 23025 ####[facility] [facility] [address], [facility] COLFAX MEDICAL CENTERPLAT ANU449 Thou/gy8Eosw357-897Nrt [facility] [place] [facility] HospitalComment on above:Order Comment: << On admission If not done in ED>>No: Do not add to previous drawPerformed By: #### 25192, 35270, 55041, 45763, 97983 ####[facility] [facility] [address], [facility] WBC (Leukocytes)22.4 Thou/dg8Qfxc5.0-10.0The [facility] Comment on above:Order Comment: << On admission If not done in ED>>No: Do not add to previous drawPerformed By: #### 32438, 71753, 87309, 71017, 61653 ####[facility] [facility] [address], [facility] POC GLUCOSE LABon 49-73-9728Vihccpd mass vpwh896 mg/kQQikn47-486Vrq [facility] HospitalComment on above:Performed By: #### 70013, 62568, 71274, 24475, 80893 ####[place] [address] [facility] [address], [facility] CENTERGlucose mass ujqx061 mg/pUZtjg19-232Vrx [facility] HospitalComment on above:Performed By: #### 18515, 37627, 38729, 91986, 65017 ####[facility]Glucose mass vana761 mg/oIOyax67-216Zsm [facility] HospitalComment on above:Performed By: #### 56728, 05500, 35846, 32838, 64763 ####[facility] *BLOOD CULTUREon 12-28-2016*BLOOD CULTUREClinical Report: (D) Specimen: BLOOD CULTURE Collected: 12/28/2016 19:27 Status: Final Last Updated: 01/03/2017 08:14 CULT RES (Final) No Growth Day 5NoThe MetroHealth SystemComment on above: Performed By: #### 79402, 59390, 17058, 49096, 19929 ####[facility] [place] [address]*SPUTUM CULTUREon 12-28-2016*SPUTUM CULTUREClinical Report: (D) Specimen/Source: SPUTUM/SPUTUM, SPONTANEOUS Collected: 12/28/2016 21:51 Status: Final Last Updated: 12/30/2016 08:09 (1) No: Do not add to previous draw GRAM (Final) 10-25 Squamous Epithelial Cells, <10 Polys Per Low Power Field Many Gram Negative Bacilli Many Gram Positive Cocci In Clusters ISO (Final) Heavy Growth Colonies Consistent with Upper Respiratory FloraNoThe MetroHealth SystemComment on above:Order Comment: << On admission If not done in ED>>No: Do not add to previous drawPerformed By: #### 58844, 83844, 67116, 51395, 60382 ####[facility]BASIC METABOLIC PANELon 79-70-3412Mbgqfbd0.8 mg/dLNormal8.6-10.3The [facility] HospitalComment on above:Order Comment: << On admission If not done in ED>>No: Do not add to previous drawPerformed By: #### 70639, 23008, 21932, 02991, 93060 ####[facility] [place] [address], [place] Nmbayhab82 mmol/YLko19-036Xqg [facility] HospitalComment on above:Order Comment: << On admission If not done in ED>>No: Do not add to previous drawPerformed By: #### 57037, 54824, 70251, 67558, 14974 ####[facility] [place] [address], FMRVV032 mmol/L Wizysz01-54Qln [facility] HospitalComment on above:Order Comment: << On admission If not done in ED>>No: Do not add to previous draw Performed By: #### 47362, 42257, 98681, 08919, 93504 ####[facility] [place] [address], USACreatinine1.34 mg/dLHigh 0.70-1.30The [facility] HospitalComment on above:Order Comment: << On admission If not done in ED>>No: Do not add to previous drawPerformed By: #### 06318, 01214, 87889, 56706, 27924 ####[facility] [place] [address], USAeGFR (black)mL/min/{1.73_m2}Normal >60The [facility] HospitalComment on above:Order Comment: << On admission If not done in ED>>No: Do not add to previous drawPerformed By: #### 18030, 00613, 15438, 90614, 00046 ####[facility] [place] [address], USAeGFR (non-black)55 ml/min/1.73sq mAbnormal>60 The [facility] HospitalComment on above:Order Comment: << On admission If not done in ED>>No: Do not add to previous drawPerformed By: #### 52436, 24523, 43841, 93039, 35533 ####[facility] [place] [address], USAGlucose mass smkx978 mg/aLXsoa11-631Duv [facility] HospitalComment on above:Order Comment: << On admission If not done in ED>>No: Do not add to previous drawPerformed By: #### 36213, 98321, 24489, 61673, 31295 ####[facility] [place] [address], USAPotassium molar conc3.7 mmol/LNormal3.5-5.1 The [facility] HospitalComment on above:Order Comment: << On admission If not done in ED>>No: Do not add to previous drawPerformed By: #### 12406, 94160, 75959, 88510, 12164 ####[facility] [place] [address], TAVBdchau966 mmol/NPxn616-720Qxt [facility] HospitalComment on above:Order Comment: << On admission If not done in ED>>No: Do not add to previous drawPerformed By: #### 37792, 83083, 03164, 37428, 94350 ####[facility] [place] [address], USAUrea banrivcg91 mg/dLHigh7-25The [facility] HospitalComment on above:Order Comment: << On admission If not done in ED>>No: Do not add to previous drawPerformed By: #### 26830, 84251, 91451, 18977, 83660 ####[facility] [place] [address], [place] CBC W/DIFFon 93-27-1653JMDXP2.0 %Normal0.0-4.0The [facility] HospitalComment on above:Performed By: #### 45994, 85477, 65761, 66273, 16618 ####[facility] [place] [address].[place] [address], [facility] Basophils Auto #/vol (Bld)0.0 %Normal0.0-2.0The [facility] HospitalComment on above:Performed By: #### 59775, 52036, 57585, 60653, 54378 ####[facility] [place] [address].[place] [address], [facility] Eosinophils/100 leukocytes2.0 %Normal0.0-5.0The [facility] HospitalComment on above:Performed By: #### 81478, 14767, 91307, 51379, 09881 ####[place] [address], [facility] Erythrocyte distribution width Auto Ratio (RBC)13.9 %Azjefu29.5-16.9The [facility] HospitalComment on above:Performed By: #### 17709, 07926, 95083, 81768, 62791 ####[place] [address], [facility] CENTERErythrocytes (RBC)2.72 mill/ah1Vzo9.30-5.90The [facility] HospitalComment on above:Performed By: #### 10775, 93823, 89781, 23165, 18880 ####[address] [place] [address], [facility] CENTERHematocrit (HCT)27.4 %Low39.0-55.0The [facility] HospitalComment on above:Performed By: #### 28213, 53722, 79313, 00613, 79779 ####[place] [address], [facility] CENTERHemoglobin mass conc (Bld)8.9 g/dLLow13.9-16.3The [facility] HospitalComment on above:Performed By: #### 92220, 60129, 17909, 01474, 70721 ####[facility] [facility] [address], [facility] CENTERLymphocytes/100 leukocytes3.0 %Low20.0-40.0The [facility] HospitalComment on above:Performed By: #### 18608, 94778, 37842, 12209, 09769 ####[facility] [place], [place] [address] [address], JFKAYG91.6 hkHrib63.0-32.0The [facility] HospitalComment on above:Performed By: #### 20947, 95931, 36658, 71185, 94626 ####[address] [place] [address], [facility] MUS[facility]OGEEHC mass conc (RBC)32.4 g/cPBdabix04.0-36.0The [facility] [place] [facility] HospitalComment on above:Performed By: #### 09662, 11392, 40158, 97717, 70403 ####[facility] [place] [address].[place] [address], OOWACM136.6 fLHigh 80.0-100.0The [facility] [place] [facility] HospitalComment on above:Performed By: #### 05023, 90723, 59896, 35196, 75260 ####[address] [place] [address], USAMETHODManual blood smear examination performedPeoples HospitalComment on above:Performed By: #### 72759, 73336, 02127, 34337, 81421 ####[place] [address] [facility] [address], FFZVZOSH00.0 %High2-8 The [facility] [place] [facility] HospitalComment on above:Performed By: #### 77669, 41535, 11112, 80319, 95032 ####[address] [place] [address], USAOTHER 1NORMAL RED CELL MORPHOLOGY SEENNormal The [facility] HospitalComment on above:Performed By: #### 87230, 97402, 93192, 07992, 18687 ####[facility] [place] [address], USAPLAT MPS816 Thou/rf5Xsnl206-206Cww [facility] [place] [facility] HospitalComment on above:Performed By: #### 41591, 24587, 51940, 43155, 56341 ####[facility] [facility] [place] [address], TBUWIBF83.0 %Hzaa58-04Swt [facility] HospitalComment on above:Performed By: #### 28750, 18662, 25370, 60414, 99798 ####[facility] [facility] [address], [facility] CENTERWBC (Leukocytes) 23.0 Thou/xe6Yfjs1.0-10.0The [facility] HospitalComment on above:Performed By: #### 90484, 59118, 04130, 51414, 27483 ####[facility] [place] [address], [facility] CENTERMAGNESIUM BLOODon 35-14-7622Ftezhqluq5.4 mg/dLNormal1.9-2.7The [facility] Comment on above:Order Comment: << On admission If not done in ED>>No: Do not add to previous drawPerformed By: #### 94470, 78837, 71428, 70071, 12266 ####[facility] [facility] [address], [place] PHOSPHORUS BLOODon 87-20-7602Rgkmewghv0.8 mg/dLNormal2.5-5.0The [facility] HospitalComment on above:Order Comment: << On admission If not done in ED>>No: Do not add to previous drawPerformed By: #### 57475, 04704, 85696, 64726, 75462 ####[facility] [place] [address], [facility] CENTERPOC GLUCOSE LABon 04-95-9447Yurnefn mass rddy852 mg/xLMbzt01-875Qmi [facility] HospitalComment on above:Performed By: #### 59035, 72500, 93002, 04421, 96070 ####[facility] [place] [address], USAGlucose mass yfrs722 mg/yIRajy89-929Zpy [facility] HospitalComment on above:Performed By: #### 56223, 16148, 42497, 78607, 42305 ####[facility] [place] [address], USAGlucose mass wknv252 mg/qHGajn05-028Wkd [facility] HospitalComment on above:Performed By: #### 64126, 67037, 95001, 62422, 17485 ####[facility] [place] [address], USAGlucose mass lals119 mg/dFApbh40-698Atq [facility] HospitalComment on above:Performed By: #### 48092, 70875, 35741, 05784, 89521 ####[facility] [place], [place] [address] [address], [facility] PORTABLE CHEST 1 VIEWon 81-39-1593MPERLLXD CHEST 1 VIEWUnUniversity Hospitals Cleveland Medical CenterDepartment of Nwbytealh[address] [place] [id number] Patien bo Name: TORSTEN HAYWOOD : 1955Sex: MAge: Race: WhiteMRN: [id number]. Location: [id number]: IVisit #: [id number] Date: 12/28/2016 7:10:00 PMCompleted Date: 12/28/2016 07:38 PMRequesting Provider: MELANIE SPIVEY Attending Provider: TORSTEN YEPEZ Report Copy To: Signs & Symptoms: Elevated WBCHistory: Patient history not availableComments: R/O PneumoniaExam: PORTABLECHEST 1 VIEWAccession #: [id number] ======PORTABLE CHEST 1 VIEW 12/28/2016 7:38 PM [...] CHF. Electronically signed by:Rayshawn Hall. Transcribed by: [id number], User Resident: Electronically Signed by: RAYSHAWN HALL @ 12/29/2016 07:47 AMNormal The [facility] HospitalComment on above:Order Comment: << On admission If not done in ED>>No: Do not add to previous drawURINALYSIS REFLEXon 37-35-0400Ixdhyuupv (total)NegativeNormalNEGATIVEThe [facility] HospitalComment on above:Order Comment: << On admission If not done in ED>>No: Do not add to previous drawPerformed By: #### 62959, 23046, 82672, 63554, 60864 ####[facility] [place] [address], USABLOODNegativeNormalNEGATIVEThe [facility] Comment on above:Order Comment: << On admission If not done in ED>>No: Do not add to previous drawPerformed By: #### 81912, 80816, 61791, 48761, 34204 ####[facility] [place] [address], [place] Erythrocytes (RBC)3-4Qhdjmjrg9-1Vnk [facility] HospitalComment on above:Order Comment: << On admission If not done in ED>>No: Do not add to previous drawPerformed By: #### 50871, 03214, 78581, 11054, 34738 ####[facility] [place] [address], [facility] CENTERGlucose mass concNegativeNormalNEGATIVEThe [facility] HospitalComment on above:Order Comment: << On admission If not done in ED>>No: Do not add to previous drawPerformed By: #### 50627, 97516, 14584, 72326, 77281 ####[facility] [place] [address], [facility] CENTERKETONENegative NormalNEGATIVEThe [facility] HospitalComment on above:Order Comment: << On admission If not done in ED>>No: Do not add to previous draw Performed By: #### 30582, 26861, 61070, 20962, 77015 ####[facility] [place] [address], USALEUK ESTERNegativeNormal NEGATIVEThe [facility] HospitalComment on above:Order Comment: << On admission If not done in ED>>No: Do not add to previous drawPerformed By: #### 57357, 25982, 43506, 81511, 38686 ####[facility] [place] [address], USAMUCUS THREADSFEWAbnormalNONE SEEN The [facility] HospitalComment on above:Order Comment: << On admission If not done in ED>>No: Do not add to previous drawPerformed By: #### 39610, 49570, 34893, 23197, 82344 ####[facility] [place] [address], [facility] CENTERpH of blood5.0 [pH]Normal5.0-8.0The [facility] HospitalComment on above:Order Comment: << On admission If not done in ED>>No: Do not add to previous drawPerformed By: #### 24836, 85164, 68185, 90858, 73838 ####[facility] [place] [address], [facility]ENTERProteinNegativeNormalNEGATIVEThe [facility] HospitalComment on above:Order Comment: << On admission If not done in ED>>No: Do not add to previous drawPerformed By: #### 94582, 47500, 48512, 27456, 42986 ####[facility] [place] [address], [facility] CENTERSPEC GRAV1.480Cqbzfj2.015-1.020The [facility] HospitalComment on above:Order Comment: << On admission If not done in ED>>No: Do not add to previous drawPerformed By: #### 55107, 01640, 02805, 58743, 70850 ####[facility] [place] [address], [facility] CENTERUrine, appearanceCLEARNormalCLEARThe [facility] HospitalComment on above:Order Comment: << On admission If not done in ED>>No: Do not add to previous drawPerformed By: #### 42109, 93298, 62287, 64732, 98293 ####[facility] [place] [address], [facility] Urine, bacteria in sedimentOCCAbnormalNONE SEENThe [facility] HospitalComment on above:Order Comment: << On admission If not done in ED>>No: Do not add to previous drawPerformed By: #### 24301, 53095, 54894, 15222, 04256 ####[facility] [place] [address], [place] Urine, colorYELLOWNormalYELLOWThe [facility] HospitalComment on above:Order Comment: << On admission If not done in ED>>No: Do not add to previous drawPerformed By: #### 15093, 50466, 49177, 80375, 91410 ####[facility] [place] [address], USAUrine, nitrite presenceNegativeNormalNEGATIVEThe [facility] HospitalComment on above:Order Comment: << On admission If not done in ED>>No: Do not add to previous drawPerformed By: #### 70232, 29522, 71226, 49738, 47333 ####[facility] [place] [address], [facility] CENTERWBC UA0-2 Abnormal0-0The [facility] HospitalComment on above:Order Comment: << On admission If not done in ED>>No: Do not add to previous draw Performed By: #### 74530, 92579, 62401, 82955, 25414 ####[facility] [place] [address], [facility] CENTERPOC GLUCOSE LABon 52-99-0971Itydebx mass udes269 mg/bALfzs83-038Cmc [facility] HospitalComment on above:Performed By: #### 14922, 91411, 93865, 12856, 33211 ####[facility] [place] [address], [facility] Glucose mass inxo267 mg/kRYxyz88-376Pef [facility] Comment on above:Performed By: #### 50374, 23765, 34452, 06216, 62706 ####[facility] [place] [address], [facility] Glucose mass igkx945 mg/hSDduh64-027Pfw [facility] Comment on above:Performed By: #### 03184, 60501, 67713, 44284, 91144 ####[facility] [place] [address], [facility] Glucose mass nmwz237 mg/jPInqc99-652Dbd [facility] Comment on above:Performed By: #### 78507, 19792, 15984, 32505, 51883 ####[facility] [place] [address], [facility] BASIC METABOLIC PANELon 85-06-6377Nfwtyrq9.6 mg/dLNormal8.6-10.3The [facility] HospitalComment on above:Order Comment: << On admission If not done in ED>>No: Do not add to previous drawPerformed By: #### 88915, 09712, 89769, 89548, 37542 ####[facility] [place] [address], HJOZowxwuqw53 mmol/IGga89-545Vrz [facility] HospitalComment on above:Order Comment: << On admission If not done in ED>>No: Do not add to previous drawPerformed By: #### 84923, 29460, 58116, 72613, 22555 ####[facility] [place] [address], BODLY204 mmol/OUygrze58-09Byz [facility] Comment on above:Order Comment: << On admission If not done in ED>>No: Do not add to previous drawPerformed By: #### 37207, 03526, 74294, 82692, 33561 ####[facility] [place] [address], [place] Creatinine1.15 mg/dLNormal0.70-1.30The [facility] Comment on above:Order Comment: << On admission If not done in ED>>No: Do not add to previous drawPerformed By: #### 02902, 81989, 81514, 66761, 03546 ####[facility] [facility] [place] [address], [facility] eGFR (black)mL/min/{1.73_m2}Normal>60The [facility] Comment on above:Order Comment: << On admission If not done in ED>>No: Do not add to previous drawPerformed By: #### 69687, 42170, 01931, 43476, 78866 ####[facility] [facility] [address], [facility] eGFR (non-black)mL/min/{1.73_m2}Normal>60The [facility] Comment on above:Order Comment: << On admission If not done in ED>>No: Do not add to previous drawPerformed By: #### 95050, 38524, 23856, 59291, 59562 ####[facility] [facility] [address], [facility] Glucose mass btnb055 mg/kFPfqj67-841Ysv [facility] Comment on above:Order Comment: << On admission If not done in ED>>No: Do not add to previous drawPerformed By: #### 46694, 61060, 59438, 54907, 85670 ####[facility] [facility] [address], [facility] Potassium molar conc3.5 mmol/LNormal3.5-5.1The [facility] HospitalComment on above:Order Comment: << On admission If not done in ED>>No: Do not add to previous drawPerformed By: #### 91273, 51055, 58833, 92737, 07171 ####[facility] [facility] [address], [facility] Tgcnok469 mmol/GYra055-833Hte [facility] HospitalComment on above:Order Comment: << On admission If not done in ED>>No: Do not add to previous drawPerformed By: #### 62802, 33617, 54913, 01921, 90582 ####[facility] [place] [address], USAUrea sdfajtra61 mg/dLHigh7-25The [facility] HospitalComment on above:Order Comment: << On admission If not done in ED>>No: Do not add to previous draw Performed By: #### 57923, 38636, 53274, 33871, 99157 ####[facility] [place] [address], USAPOC GLUCOSE LABon 02-67-8380Wotvclb mass daqh019 mg/fLQkqd29-135Onl [facility] HospitalComment on above:Performed By: #### 75046, 18490, 13312, 62421, 44549 ####[facility] [place] [address], [place] Glucose mass utlj969 mg/hZRaax73-746Slz [facility] Comment on above:Performed By: #### 42181, 11632, 60659, 74422, 69902 ####[facility] [place] [address], [place] BASIC METABOLIC PANELon 31-11-2716Egxzylt0.4 mg/dLLow8.6-10.3The [facility] HospitalComment on above:Order Comment: << On admission If not done in ED>>No: Do not add to previous drawPerformed By: #### 91860, 86395, 49499, 44522, 70399 ####[facility] [place] [address], DFCYmfssakd91 mmol/MTzroun78-907Lsx [facility] HospitalComment on above:Order Comment: << On admission If not done in ED>>No: Do not add to previous drawPerformed By: #### 56057, 86789, 71155, 63551, 40672 ####[facility] [place] [address], [place] CO228 mmol/AMgpqkj51-68Igy [facility] HospitalComment on above: Order Comment: << On admission If not done in ED>>No: Do not add to previous drawPerformed By: #### 30507, 12685, 67447, 72984, 14295 ####[facility] [place] [address], USACreatinine0.88 mg/dLNormal0.70-1.30The [facility] HospitalComment on above: Order Comment: << On admission If not done in ED>>No: Do not add to previous drawPerformed By: #### 08299, 21602, 23728, 72377, 56313 ####[facility] [place] [address], USAeGFR (black) mL/min/{1.73_m2}Normal>60The [facility] HospitalComment on above:Order Comment: << On admission If not done in ED>>No: Do not add to previous drawPerformed By: #### 97500, 20945, 64305, 30958, 65621 ####[facility] [place] [address], USAeGFR (non-black)mL/min/{1.73_m2}Normal>60The [facility] Comment on above:Order Comment: << On admission If not done in ED>>No: Do not add to previous drawPerformed By: #### 06409, 41302, 80854, 78022, 83726 ####[facility] [place] [address], [place] Glucose mass oequ440 mg/mFZsns29-735Obe [facility] Comment on above:Order Comment: << On admission If not done in ED>>No: Do not add to previous drawPerformed By: #### 12032, 61617, 75368, 17764, 11498 ####[facility] [place] [address], [place] Potassium molar conc3.8 mmol/LNormal3.5-5.1The [facility] HospitalComment on above:Order Comment: << On admission If not done in ED>>No: Do not add to previous drawPerformed By: #### 91549, 11231, 92932, 04115, 85140 ####[facility] [place] [address], [facility] Sbehgh686 mmol/YMjt845-559Oql [facility] HospitalComment on above:Order Comment: << On admission If not done in ED>>No: Do not add to previous drawPerformed By: #### 25668, 02364, 54320, 51125, 97600 ####[facility] [place] [address], [facility] CENTERUrea rjilncxz15 mg/dLHigh7-25The [facility] HospitalComment on above:Order Comment: << On admission If not done in ED>>No: Do not add to previous draw Performed By: #### 65023, 58890, 67694, 75284, 89509 ####[facility] [facility] [address], [facility] CENTERPO GLUCOSE LABon 76-55-1927Uiudael mass qend795 mg/zUAfen84-331Ocq [facility] HospitalComment on above:Performed By: #### 62075, 04446, 09625, 16885, 58196 ####[facility] [place] [address], [facility] Glucose mass ogvf154 mg/rMPqwu87-565Tsg [facility] Comment on above:Performed By: #### 48712, 70173, 24160, 94540, 59259 ####[facility] [place] [address], [facility] Glucose mass xkqp732 mg/vKCaun88-927Xqz [facility] Comment on above:Performed By: #### 88039, 48898, 11843, 97765, 49817 ####[facility] [facility].[address] Glucose mass kptm464 mg/kROmlv34-291Ldm [facility] Comment on above:Performed By: #### [id number], 06304, 39563, 05929, 53284 ####[place] [address] [facility].[address] UFH HEPARIN ASSAYon 15-09-8942COXINMLGNBYZWH HEPARIN0.31 IU/mLNormal0.30-0.70The [facility] HospitalComment on above:Result Comment: Rivaroxaban and Apixaban will interfere with the anti Xa assay used tomonitor UFH and LMWH. Performed By: #### 77328, 79564, 61212, 33610, 07866 ####[place] [address] [facility] [place] [address], [facility] CENTERARTERIAL BLOOD GAS W/COOX on 99-37-6458VQFO EXCESS1 mmol/GMbzkne-9-4Eub [facility] HospitalComment on above:Performed By: #### 32899, 49544, 32646, 52501, 12397 ####[place] [address] [facility].[address] Bicarbonate (HCO3)26 mmol/WAqxxvn84-14Fhp [facility] Comment on above:Performed By: #### 44495, 87871, 67645, 12807, 54386 ####[address] CO242 bgQtYzxoav22-69Ldn [facility] HospitalComment on above: Performed By: #### 74158, 50169, 66685, 50276, 56776 ####[facility]COHB3 %High0-1The [facility] [place] [facility] HospitalComment on above:Performed By: #### 89551, 15362, 00108, 79542, 39572 ####[facility] [place] [address], USADELIVERY SYSTEMSHFORNoGalion Community Hospitale [facility] HospitalComment on above:Performed By: #### 56737, 15244, 56621, 54025, 53474 ####[facility] [place] [address], LFQDMP345 %Csbwno19-529Tfb [facility] HospitalComment on above:Performed By: #### 85696, 94513, 53650, 83624, 25156 ####[facility] [place] [address], TVREDF59.0 LPMHigh 0.5-20.0The [facility] HospitalComment on above:Performed By: #### 72472, 51551, 29581, 27796, 81198 ####[facility] [place] [address], USAMETHB1.0 %Normal0.0-1.5The [facility] HospitalComment on above:Performed By: #### 62735, 40092, 67403, 51066, 94157 ####[facility] [place] [address], USAO2 fbyqgpnfkd21.3 %Low94.0-97.0The [facility] HospitalComment on above:Performed By: #### 30238, 64883, 35355, 46135, 34783 ####[facility] [place] [address], USAOxygen in arterial blood74 mm[Hg]Amm25-723Dim [facility] HospitalComment on above:Performed By: #### 80688, 77518, 26003, 70798, 86231 ####[facility] [place] [address], USApH of blood7.40 [pH]Normal7.35-7.45The [facility] HospitalComment on above:Performed By: #### 29860, 31111, 36722, 25736, 83535 ####[facility] [place] [address], [place] THB9.3 g/dLLow13.9-16.3The [facility] HospitalComment on above: Performed By: #### 47354, 40013, 27112, 54283, 01249 ####[facility] [place] [address], USABASIC METABOLIC PANELon 16-46-0281Ylnkgsu1.3 mg/dLLow8.6-10.3The [facility] Comment on above:Order Comment: << On admission If not done in ED>>No: Do not add to previous drawPerformed By: #### 36805, 89268, 16304, 77312, 77679 ####[facility] [place] [address], [place] Rhsnrueo64 mmol/TSlfuiy28-204Wkv [facility] HospitalComment on above:Order Comment: << On admission If not done in ED>>No: Do not add to previous drawPerformed By: #### 86318, 94697, 60839, 24603, 30423 ####[facility] [place] [address], YUUCX972 mmol/L Vanzuw80-11Zdl [facility] HospitalComment on above:Order Comment: << On admission If not done in ED>>No: Do not add to previous draw Performed By: #### 75272, 26201, 68345, 06946, 03792 ####[facility] [place] [address], USACreatinine0.82 mg/dLNormal 0.70-1.30The [facility] HospitalComment on above:Order Comment: << On admission If not done in ED>>No: Do not add to previous drawPerformed By: #### 96535, 45988, 26637, 14553, 54453 ####[facility] [place] [address], USAeGFR (black)mL/min/{1.73_m2}Normal >60The [facility] HospitalComment on above:Order Comment: << On admission If not done in ED>>No: Do not add to previous drawPerformed By: #### 84182, 48475, 51979, 63201, 20327 ####[facility] [place] [address], USAeGFR (non-black)mL/min/{1.73_m2}Normal>60The [facility] HospitalComment on above:Order Comment: << On admission If not done in ED>>No: Do not add to previous drawPerformed By: #### 84741, 58594, 73946, 98226, 32416 ####[facility] [place] [address], USAGlucose mass jshv002 mg/hXLuzp63-981Ggy [facility] HospitalComment on above:Order Comment: << On admission If not done in ED>>No: Do not add to previous drawPerformed By: #### 64645, 83402, 28282, 93515, 51560 ####[facility] [place] [address], USAPotassium molar conc4.0 mmol/LNormal3.5-5.1 The [facility] [place] [facility] HospitalComment on above:Order Comment: << On admission If not done in ED>>No: Do not add to previous drawPerformed By: #### 52921, 08080, 07129, 66784, 04898 ####[facility] [place] [address], LTJSlmgwz467 mmol/CLns243-816Wsk [facility] HospitalComment on above:Order Comment: << On admission If not done in ED>>No: Do not add to previous drawPerformed By: #### 43325, 90779, 22852, 61523, 62844 ####[facility] [place] [address], [facility] MEDICAL CENTERUrea ieuadkdx28 mg/dLNormal7-25The [facility] [place] [facility] HospitalComment on above:Order Comment: << On admission If not done in ED>>No: Do not add to previous drawPerformed By: #### 03302, 50115, 02284, 72674, 99878 ####[facility] Consultationon 48-74-3173TgmrklmdkkonFZ#: [id number] Torsten Haywood Date of Service: 12/24/2016 Room #: 3AB [id number] Birthdate: 1955 Referring Physician: CONSULTATIONREASON FOR CONSULTATION: Possible inpatient rehab admission.CHIEF COMPLAINT: Shortness of breath.HISTORY OF PRESENT ILLNESS: The patient is a 60-year-old male with a1-week history of progressively worsening shortness of breath. [facility] due to concern for cardiac dysfunction. On [...] 12/24/2016/08:38 A/Elia Thomas M.D.Date Trans: 12/24/2016 03:44 P/mmoDN_JN:[id number]: Esperanza Eaton M.D. [facility]...do Not Send [address] [place] [address]RwhaaySdlProMedica Flower Hospital GLUCOSE LABon 53-14-2735Kdxgedg mass lcrm060 mg/sHNblx41-163Coy [facility] [place] [facility] HospitalComment on above:Performed By: #### 99411, 78416, 52408, 79897, 57062 ####[facility] [place] [address], USAGlucose mass vtbv405 mg/rAKzgv05-390Res [facility] [place] [facility] HospitalComment on above:Performed By: #### 42699, 30412, 82666, 82763, 12850 ####[facility] [place] [address], USAGlucose mass bxfm091 mg/oITtla23-690Zxt [facility] [place] [facility] HospitalComment on above:Performed By: #### 09885, 94149, 04672, 08820, 54026 ####[place] [address] [facility].[address] Glucose mass awfq028 mg/tDEnml79-450Jue [facility] Comment on above:Performed By: #### 64796, 00127, 67699, 80850, 24268 ####[address] UFH HEPARIN ASSAYon 08-14-9054ZNZPPUOWUKQPYO HEPARIN0.33 IU/mLNormal0.30-0.70The [facility] [place] [facility] HospitalComment on above:Result Comment: Rivaroxaban and Apixaban will interfere with the anti Xa assay used tomonitor UFH and LMWH. Performed By: #### 24922, 63964, 52587, 98341, 76778 ####[place] [address] [address] StreetUNFRACTIONATED HEPARIN0.18 IU/mLLow0.30-0.70The [facility] [place] [facility] HospitalComment on above:Result Comment: Rivaroxaban and Apixaban will interfere with the anti Xa assay used tomonitor UFH and LMWH.Performed By: #### 95831, 51198, 99229, 14511, 14015 ####[address] UNFRACTIONATED HEPARIN0.37 IU/mLNormal0.30-0.70The [facility] HospitalComment on above:Result Comment: Rivaroxaban and Apixaban will interfere with the anti Xa assay used tomonitor UFH and LMWH.Performed By: #### 19658, 60990, 42014, 25654, 07296 ####[address] [place] [address], [facility] CENTERARTERIAL BLOOD GAS W/COOXon 75-70-2315MAGQ EXCESS7 mmol/BBbpr-2-0Avh [facility] [place] [facility] HospitalComment on above:Performed By: #### 13678, 84146, 52214, 18132, 53697 ####[facility] [place] [address], USABicarbonate (HCO3)32 mmol/L Critically rufq87-71Kaz [facility] HospitalComment on above: Performed By: #### 85352, 38988, 12997, 45665, 27207 ####[facility] [place] [address], JZTTG136 gvXbElmd31-43Mmx [facility] HospitalComment on above:Performed By: #### 51836, 87056, 00140, 33247, 59934 ####[facility] [place] [address], USACOHB2 %High0-1The [facility] Comment on above:Performed By: #### 15999, 57390, 36239, 98596, 80997 ####[facility] [place] [address], [place] DELIVERY SYSTEMSBIPAP [address] [place], [place] [address]Comment on above:Performed By: #### 44965, 73075, 13600, 20736, 81447 ####[facility] [place] [address], ECPDZN53.0 LPMNormal 0.5-20.0The [facility] HospitalComment on above:Performed By: #### 52120, 80399, 01152, 23180, 85511 ####[facility] [place] [address], USAMETHB1.0 %Normal0.0-1.5The [facility] [place] [facility] HospitalComment on above:Performed By: #### 78589, 89501, 33526, 92878, 15857 ####[facility] [place] [address], USAMODALITYBIPAP /6NoThe MetroHealth SystemComment on above:Performed By: #### 68672, 43552, 43203, 16158, 43803 ####[facility] [place] [address], USAO2 eksuvcddpd81.2 %Rpfsqb64.0-97.0The [facility] [place] [facility] HospitalComment on above:Performed By: #### 87443, 08870, 87402, 60039, 64780 ####[facility] [place] [address], [place] Oxygen in arterial ysprn457 mm[Hg]Critically qcor55-161Pae [facility] HospitalComment on above:Performed By: #### 69606, 18286, 11906, 16161, 66544 ####[facility] [place] [address], USAPEEP6.0 NDO72QqybbvNhhThe [facility]Health SystemComment on above:Performed By: #### 68577, 72716, 05831, 35602, 53895 ####[facility] [place] [address], USApH of blood7.41 [pH]Normal7.35-7.45The [facility] [place] [facility] HospitalComment on above: Performed By: #### 93194, 94058, 82590, 37526, 65908 ####[facility] [place] [address], USATHB8.8 g/dLLow13.9-16.3The [facility] [place] [facility] HospitalComment on above:Performed By: #### 93396, 89455, 01217, 30692, 39940 ####[facility] [place] [address], USAARTERIAL BLOOD GAS WITH ICAon 05-31-4240YNJD EXCESS9 mmol/JFotb-7-6Ybz [facility] HospitalComment on above:Performed By: #### 32661, 69748, 86247, 61828, 25961 ####[facility] [place] [address], USABicarbonate (HCO3)35 mmol/L Critically hkzs09-44Ebu [facility] HospitalComment on above: Performed By: #### 24691, 87003, 57345, 01829, 09389 ####[facility] [place] [address], ZKINP099 bmLcBgap66-47Gig [facility] HospitalComment on above:Performed By: #### 80534, 39595, 59942, 53680, 31552 ####[facility] [place] [address], USADELIVERY SYSTEMSHIGH FLOW NASAL CANNULANormalThe [facility] HospitalComment on above:Performed By: #### 46975, 08546, 25144, 27737, 64442 ####[facility] [place] [address], MCOJUV363 %Iomntn87-577Mlx [facility] HospitalComment on above:Performed By: #### 01027, 84949, 37851, 43109, 16183 ####[facility] [place] [address], [place] IONIZED CALCIUM1.10 mmol/LLow1.13-1.32The [facility] Comment on above:Performed By: #### 24632, 12131, 09405, 19855, 05826 ####[facility] [place] [address], [place] LPM30.0 LPMHigh0.5-20.0The [facility] HospitalComment on above: Performed By: #### 44743, 08216, 73574, 61248, 56125 ####[facility] [place] [address], USAO2 jdvqmsmdoa73.3 %Low 94.0-97.0The [facility] HospitalComment on above:Performed By: #### 03170, 39019, 12246, 33076, 84036 ####[facility] [place] [address], USAOxygen in arterial blood61 mm[Hg] Sfr58-614Soz [facility] HospitalComment on above:Performed By: #### 74473, 44692, 14558, 69334, 32496 ####[facility] [place] [address], USApH of blood7.42 [pH]Normal 7.35-7.45The [facility] HospitalComment on above:Performed By: #### 67409, 62726, 60302, 21264, 16067 ####[facility] [place] [address], USABASE EXCESS3 mmol/IJynk-7-0Lth [facility] HospitalComment on above:Performed By: #### 37736, 39431, 81398, 86061, 55313 ####[facility] [place] [address], USABicarbonate (HCO3)28 mmol/ZHsau50-30Tck [facility] HospitalComment on above:Performed By: #### 67177, 70536, 95520, 15311, 08727 ####[facility] [place] [address], QRDCS076 mlYgNvdjgh02-83Mko [facility] HospitalComment on above:Performed By: #### 47029, 99448, 00999, 87325, 37841 ####[facility] [place] [address], USADELIVERY SYSTEMS HIGH FLOW NASAL CANNULANormalThe [facility] HospitalComment on above:Performed By: #### 36599, 11249, 88563, 85337, 02926 ####[facility] [place] [address], AUMOZW723 %Normal 21-100The [facility] HospitalComment on above:Performed By: #### 21016, 10629, 93740, 22687, 83646 ####[facility] [place] [address], USAIONIZED CALCIUM0.95 mmol/LLow1.13-1.32The [facility] HospitalComment on above:Performed By: #### 95772, 17746, 43302, 71270, 80671 ####[facility] [place] [address], EVAMCZ88.0 LPMHigh0.5-20.0The [facility] HospitalComment on above:Performed By: #### 52528, 84004, 21339, 40782, 06846 ####[facility] [place] [address], [facility] CENTERO2 mkzykfmwuj79.3 %Rpbvor41.0-97.0The [facility] [place] [facility] HospitalComment on above:Performed By: #### 60953, 33965, 38575, 78251, 90734 ####[facility] [place] [address], [facility] Oxygen in arterial blood69 mm[Hg]Qel52-997Jhx [facility] HospitalComment on above:Performed By: #### 63770, 91186, 95729, 61258, 74986 ####[facility] [place] [address], [facility] pH of blood7.44 [pH]Normal7.35-7.45The [facility] Comment on above:Performed By: #### 49869, 71968, 78120, 43285, 06533 ####[place] [address] [place] [address], [facility] BASIC METABOLIC PANELon 29-41-4272Scbvflj2.1 mg/dLLow8.6-10.3The [facility] HospitalComment on above:Order Comment: << On admission If not done in ED>>No: Do not add to previous drawPerformed By: #### 08775, 15231, 83142, 18942, 42296 ####[facility] [place] [address], HHVTfdszmvv38 mmol/DVjc66-218Qol [facility] Comment on above:Order Comment: << On admission If not done in ED>>No: Do not add to previous drawPerformed By: #### 28581, 37503, 88927, 76593, 58446 ####[facility] [place] [address], [place] CO231 mmol/IOwykms62-83Ecd [facility] HospitalComment on above: Order Comment: << On admission If not done in ED>>No: Do not add to previous drawPerformed By: #### 01282, 45330, 08387, 95387, 47329 ####[facility] [place] [address], USACreatinine0.83 mg/dLNormal0.70-1.30The [facility] HospitalComment on above: Order Comment: << On admission If not done in ED>>No: Do not add to previous drawPerformed By: #### 36283, 22015, 11435, 57931, 46444 ####[facility] [place] [address], USAeGFR (black) mL/min/{1.73_m2}Normal>60The [facility] HospitalComment on above:Order Comment: << On admission If not done in ED>>No: Do not add to previous drawPerformed By: #### 83624, 11669, 66191, 00763, 18626 ####[facility] [place] [address], USAeGFR (non-black)mL/min/{1.73_m2}Normal>60The [facility] Comment on above:Order Comment: << On admission If not done in ED>>No: Do not add to previous drawPerformed By: #### 71440, 94855, 27001, 96978, 61072 ####[facility] [place] [address], [facility] Glucose mass qlvw638 mg/jGIveu36-003Ayc [facility] Comment on above:Order Comment: << On admission If not done in ED>>No: Do not add to previous drawPerformed By: #### 64111, 69413, 08734, 56994, 17940 ####[facility] [place] [address], [facility] Potassium molar conc3.6 mmol/LNormal3.5-5.1The [facility] HospitalComment on above:Order Comment: << On admission If not done in ED>>No: Do not add to previous drawPerformed By: #### 33263, 51009, 43761, 78320, 09004 ####[facility] [place] [address], [facility] Epcawz451 mmol/GXpm905-741Dji [facility] HospitalComment on above:Order Comment: << On admission If not done in ED>>No: Do not add to previous drawPerformed By: #### 68652, 29974, 81994, 21963, 26452 ####[facility] [place] [address], USAUrea mg/dLNormal7-25The [facility] HospitalComment on above:Order Comment: << On admission If not done in ED>>No: Do not add to previous draw Performed By: #### 05687, 16356, 47390, 18237, 57525 ####[facility] [place] [address], USACalcium7.7 mg/dLLow 8.6-10.3The [facility] HospitalComment on above:Order Comment: << On admission If not done in ED>>No: Do not add to previous drawPerformed By: #### 73871, 98389, 20170, 35636, 94748 ####[facility] [place] [address], XCYPswrdgds04 mmol/ZIqokyh80-287Kel [facility] HospitalComment on above:Order Comment: << On admission If not done in ED>>No: Do not add to previous drawPerformed By: #### 73480, 82429, 33826, 13211, 91579 ####[facility] [place] [address], BUAVN240 mmol/XYyzmcm69-73Rmx [facility] HospitalComment on above:Order Comment: << On admission If not done in ED>>No: Do not add to previous drawPerformed By: #### 93498, 82381, 33763, 59280, 03510 ####[facility] [place] [address], USACreatinine0.81 mg/dLNormal0.70-1.30The [facility] HospitalComment on above:Order Comment: << On admission If not done in ED>>No: Do not add to previous drawPerformed By: #### 68130, 08146, 55189, 20805, 12369 ####[facility] [place] [address], [place] Glucose mass oaho707 mg/oHHbzh94-528Zkk [facility] Comment on above:Order Comment: << On admission If not done in ED>>No: Do not add to previous drawPerformed By: #### 75909, 90733, 67059, 58277, 10233 ####[facility] [place] [address], [place] Potassium molar conc4.2 mmol/LNormal3.5-5.1The [facility] HospitalComment on above:Order Comment: << On admission If not done in ED>>No: Do not add to previous drawPerformed By: #### 81043, 79528, 26848, 54557, 79302 ####[facility] [place] [address], [facility] Urea mg/dLNormal7-25The [facility] HospitalComment on above:Order Comment: << On admission If not done in ED>>No: Do not add to previous drawPerformed By: #### 40804, 35661, 88545, 94434, 28360 ####[facility] [place] [address], [facility] MEDICAL CENTERCARDIAC MAGNESIUM BLOODon 04-08-2949Xcfpewdkj0.1 mg/dLNormal1.9-2.7The [facility] HospitalComment on above:Performed By: #### 83991, 61322, 95937, 71008, 96604 ####[facility] [place] [address], [facility] CENTERMagnesium2.2 mg/dLNormal1.9-2.7The [facility] HospitalComment on above:Performed By: #### 80552, 78078, 40515, 63690, 81166 ####[facility] [place] [address], [facility] CBC COMPLETE BLOOD COUNTon 10-96-4381Bqfkdutyamy distribution width Auto Ratio (RBC)14.1 %Sbqmuh10.5-16.9The [facility] HospitalComment on above:Order Comment: << On admission If not done in ED>>No: Do not add to previous drawPerformed By: #### 05973, 44100, 40756, 27392, 59736 ####[facility] [place] [address], [facility] MEDICAL CENTERErythrocytes (RBC)2.57 mill/xy8Jas4.30-5.90The [facility] HospitalComment on above:Order Comment: << On admission If not done in ED>>No: Do not add to previous drawPerformed By: #### 66850, 18397, 98132, 41763, 10059 ####[facility] [place] [address], [facility] MEDICAL CENTERHematocrit (HCT)25.9 %Low39.0-55.0The [facility] HospitalComment on above: Order Comment: << On admission If not done in ED>>No: Do not add to previous drawPerformed By: #### 66663, 22824, 62826, 75516, 90533 ####[facility] [place] [address], [facility]ICAL CENTERHemoglobin mass conc (Bld)8.5 g/dLLow13.9-16.3The [facility] HospitalComment on above:Order Comment: << On admission If not done in ED>>No: Do not add to previous drawPerformed By: #### 30651, 71224, 66426, 38933, 21102 ####[facility] [place] [address], IISLBI88.1 pgHigh 24.0-32.0The [facility] HospitalComment on above:Order Comment: << On admission If not done in ED>>No: Do not add to previous drawPerformed By: #### 57466, 04696, 84406, 39946, 62160 ####[facility] [place] [address], [facility]ICAL CENTERMCHC mass conc (RBC)32.8 g/dL Oktkuh75.0-36.0The [facility] HospitalComment on above:Order Comment: << On admission If not done in ED>>No: Do not add to previous draw Performed By: #### 16722, 52124, 60910, 41931, 67784 ####[facility] [place] [address], YTVVRP478.0 uJLddt25.0-100.0 The [facility] HospitalComment on above:Order Comment: << On admission If not done in ED>>No: Do not add to previous drawPerformed By: #### 71900, 90421, 97732, 53972, 83654 ####[facility] [place] [address], USAPLAT VYL123 Thou/za6Jthuax276-176Hur [facility] HospitalComment on above:Order Comment: << On admission If not done in ED>>No: Do not add to previous drawPerformed By: #### 03803, 37417, 47698, 04078, 69996 ####[facility] [place] [address], MINERS' COLFAX MEDICAL CENTERWBC (Leukocytes)21.3 Thou/jk6Lkin4.0-10.0The [facility] HospitalComment on above:Order Comment: << On admission If not done in ED>>No: Do not add to previous drawPerformed By: #### 55692, 67469, 42173, 77708, 53890 ####[facility] [place] [address], USAMAGNESIUM BLOODon [id number] mg/dLLow1.9-2.7The [facility] HospitalComment on above:Performed By: #### 41575, 52291, 96321, 09635, 26368 ####[facility] [place] [address], [place] GLUCOSE LABon 12-23-2016 Glucose mass qkbd006 mg/mYIlsy42-392Nuw [facility] Comment on above:Performed By: #### 95186, 08654, 39046, 92236, 97780 ####[facility] [place] [address], [facility] Glucose mass qaod105 mg/uNLgxi94-034Dzn [facility] Comment on above:Performed By: #### 64924, 65814, 10336, 71607, 02629 ####[facility] [place] [address], [facility] Glucose mass euqw651 mg/jAVbjv26-319Pxv [facility] Comment on above:Performed By: #### 17785, 74123, 47545, 91535, 85904 ####[facility] [place] [address], [facility] Glucose mass dhzy940 mg/zYExxz50-612Jsf [facility] Comment on above:Performed By: #### 70037, 69110, 16756, 72966, 15426 ####[facility] [place] [address], [facility] Glucose mass xgwy430 mg/rQVncr32-518Xys [facility] Comment on above:Performed By: #### 92050, 95503, 57259, 24732, 07557 ####[facility] [place] [address], [facility] POTASSIUM BLOODon 29-54-6072Opqhiypnp molar conc4.1 mmol/LNormal3.5-5.1The [facility] HospitalComment on above:Order Comment: << On admission If not done in ED>>No: Do not add to previous drawPerformed By: #### 78599, 40124, 13975, 81538, 31005 ####[facility] [place] [address], [facility] CENTERUFH HEPARIN ASSAYon 71-62-7929DHPCLNOMHKSXEA HEPARIN0.33 IU/mLNormal0.30-0.70The [facility] HospitalComment on above:Result Comment: Rivaroxaban and Apixaban will interfere with the anti Xa assay used tomonitor UFH and LMWH.Performed By: #### 06871, 00899, 39966, 26399, 08040 ####[facility] [place] [address], [facility] CENTERUNFRACTIONATED HEPARIN0.32 IU/mLNormal0.30-0.70The [facility] HospitalComment on above:Result Comment: Rivaroxaban and Apixaban will interfere with the anti Xa assay used tomonitor UFH and LMWH.Performed By: #### 38656, 23588, 39082, 93171, 74116 ####[facility] [facility] [address], [facility] CENTERUNFRACTIONATED HEPARIN0.20 IU/mL Low0.30-0.70The [facility] HospitalComment on above:Result Comment: Rivaroxaban and Apixaban will interfere with the anti Xa assay used tomonitor UFH and LMWH.Performed By: #### 24629, 39532, 35214, 36036, 90381 ####[facility] [facility] [place] [address], [facility] UNFRACTIONATED HEPARIN0.47 IU/mLNormal0.30-0.70The [facility] HospitalComment on above:Result Comment: Rivaroxaban and Apixaban will interfere with the anti Xa assay used tomonitor UFH and LMWH.Performed By: #### 63897, 19298, 62502, 33558, 34747 ####[facility] [facility] [place] [address], [facility] CENTERAPTTon 33-17-5413gJFI64.4 sHigh25.0-35.0The [facility] HospitalComment on above:Order Comment: << On admission [...] BE USED FOR THIS PURPOSE.Performed By: #### 77922, 24329, 02292, 51884, 36362 ####[facility] [place] [address], USAARTERIAL BLOOD GAS W/COOXon 11-57-0177ITKB EXCESS9 mmol/SBxbi-7-3Nct [facility] HospitalComment on above:Performed By: #### 98526, 46714, 76548, 74160, 18628 ####[facility] [place] [address], USABicarbonate (HCO3)33 mmol/L Critically oqdc36-88Dbr [facility] HospitalComment on above: Performed By: #### 82476, 76534, 81847, 75727, 13305 ####[facility] [place] [address], IYIME738 tmUsHbdx79-02Mbk [facility] HospitalComment on above:Performed By: #### 56978, 33022, 69533, 39143, 83609 ####[facility] [place] [address], USACOHB1 %Normal0-1The [facility] HospitalComment on above:Performed By: #### 15586, 01799, 30142, 24761, 58887 ####[facility] [place] [address], [place] DELIVERY SYSTEMSOTHERNormalThe [facility] HospitalComment on above:Performed By: #### 29220, 79708, 88360, 91350, 75126 ####[facility] [place] [address], LVUCPC090 %Normal 21-100The [facility] HospitalComment on above:Performed By: #### 04242, 13543, 68089, 21182, 32677 ####[facility] [place] [address], NSFHIH72.0 LPMHigh0.5-20.0The [facility] HospitalComment on above:Performed By: #### 96875, 79520, 31975, 47756, 05870 ####[facility] [place] [address], USAMETHB1.1 %Normal0.0-1.5The [facility] Comment on above:Performed By: #### 51353, 99141, 11353, 47947, 44206 ####[facility] [place] [address], [place] O2 bquguyvihe38.5 %Xditcn79.0-97.0The [facility] HospitalComment on above:Performed By: #### 05015, 66200, 71979, 43386, 16477 ####[facility] [place] [address], USAOxygen in arterial blood78 mm[Hg]Kqcpsi57-511Zcu [facility] HospitalComment on above:Performed By: #### 74360, 06527, 81598, 74316, 38166 ####[facility] [place] [address], USApH of blood7.46 [pH]High7.35-7.45The [facility] HospitalComment on above: Performed By: #### 90660, 70469, 96731, 29920, 24082 ####[facility] [place] [address], USATHB9.5 g/dLLow13.9-16.3The [facility] HospitalComment on above:Performed By: #### 76020, 47298, 93014, 12906, 13642 ####[facility] [place] [address], USAARTERIAL BLOOD GAS WITH ICAon 16-34-9162JUJH TDDSOG05 mmol/IDqea-4-2Kri [facility] HospitalComment on above:Performed By: #### 44892, 52203, 00906, 62777, 39371 ####[facility] [place] [address], USABicarbonate (HCO3)35 mmol/L Critically cgop08-06Auq [facility] HospitalComment on above: Performed By: #### 37687, 51096, 35239, 31851, 51115 ####[facility] [place] [address], IILIT226 jsYrLclq98-46Ajl [facility] HospitalComment on above:Performed By: #### 82573, 45923, 09501, 38649, 37141 ####[facility] [place] [address], USADELIVERY SYSTEMSHIGH FLOW NASAL CANNULANormalThe [facility] HospitalComment on above:Performed By: #### 96863, 89959, 53033, 45780, 69070 ####[facility] [place] [address], YQJVCE790 %Bhevqe94-675Nju [facility] HospitalComment on above:Performed By: #### 38845, 28974, 89198, 20484, 80394 ####[facility] [facility] [place] [address], [facility] IONIZED CALCIUM1.11 mmol/LLow1.13-1.32The [facility] Comment on above:Performed By: #### 34663, 74237, 50472, 23822, 23257 ####[facility] [place] [address], [facility] LPM35.0 LPMHigh0.5-20.0The [facility] HospitalComment on above: Performed By: #### 10919, 09996, 58411, 78981, 95543 ####[facility] [place] [address], [facility] CENTERO2 idobysfbla17.1 %Normal 94.0-97.0The [facility] HospitalComment on above:Performed By: #### 86414, 81196, 80392, 06488, 15597 ####[facility] [place] [address], USAOxygen in arterial ipnjz581 mm[Hg] Vcfshr55-997Fsh [facility] HospitalComment on above:Performed By: #### 89066, 10243, 67359, 86970, 91586 ####[facility] [place] [address], USApH of blood7.43 [pH]Normal 7.35-7.45The [facility] HospitalComment on above:Performed By: #### 84855, 00543, 00500, 20473, 06917 ####[facility] [place] [address], USABASE EXCESS5 mmol/EPhwb-7-9Cyn [facility] HospitalComment on above:Performed By: #### 57552, 40685, 83215, 17925, 30429 ####[facility] [place] [address], USABicarbonate (HCO3)31 mmol/LCritically wltr01-50Dzt [facility] HospitalComment on above:Performed By: #### 85393, 78857, 57979, 94044, 24502 ####[facility] [place] [address], NULAI893 xiAoSgyg10-42Efa [facility] HospitalComment on above:Performed By: #### 06698, 43506, 62759, 23676, 40789 ####[facility] [place] [address], [place] DELIVERY SYSTEMSUniversity Hospitals Portage Medical CenterComment on above:Performed By: #### 58729, 45017, 13819, 77703, 33265 ####[facility] [place] [address], TZZEUP296 %Normal 21-100The [facility] HospitalComment on above:Performed By: #### 39012, 45244, 65293, 62341, 26801 ####[facility] [place] [address], USAIONIZED CALCIUM1.14 mmol/LNormal1.13-1.32The [facility] HospitalComment on above:Performed By: #### 71495, 86291, 84768, 90452, 31102 ####[facility] [place] [address], RTHRZV72.0 LPMHigh0.5-20.0The [facility] HospitalComment on above:Performed By: #### 99374, 85375, 07147, 51344, 08387 ####[facility] [place] [address], [facility] CENTERO2 yrlyqtgyez48.5 %Bvenbo59.0-97.0The [facility] HospitalComment on above:Performed By: #### 79164, 31112, 22461, 01661, 86742 ####[facility] [place] [address], [facility] Oxygen in arterial blood88 mm[Hg]Ekuggc70-053Mxt [facility] HospitalComment on above:Performed By: #### 27461, 84782, 38907, 36603, 05663 ####[address] [place] [address], [facility] pH of blood7.37 [pH]Normal7.35-7.45The [facility] Comment on above:Performed By: #### 74096, 83539, 93911, 65886, 45941 ####[address] [place] [address], [facility] BASIC METABOLIC PANELon 55-73-5098Czbtegs3.0 mg/dLLow8.6-10.3The [facility] HospitalComment on above:Order Comment: << On admission If not done in ED>>No: Do not add to previous drawPerformed By: #### 15606, 70471, 07635, 81513, 91864 ####[facility] [place] [address], WFIIqbglibq92 mmol/UWopddy05-395Pcu [facility] HospitalComment on above:Order Comment: << On admission If not done in ED>>No: Do not add to previous drawPerformed By: #### 30993, 85684, 03297, 68929, 91751 ####[facility] [place] [address], [place] CO229 mmol/CQbnuyi52-11Sgx [facility] HospitalComment on above: Order Comment: << On admission If not done in ED>>No: Do not add to previous drawPerformed By: #### 26718, 79059, 57245, 36109, 57138 ####[facility] [place] [address], USACreatinine0.80 mg/dLNormal0.70-1.30The [facility] HospitalComment on above: Order Comment: << On admission If not done in ED>>No: Do not add to previous drawPerformed By: #### 59158, 90337, 71040, 57289, 02354 ####[facility] [place] [address], USAeGFR (black) mL/min/{1.73_m2}Normal>60The [facility] HospitalComment on above:Order Comment: << On admission If not done in ED>>No: Do not add to previous drawPerformed By: #### 06868, 72944, 57975, 46884, 37840 ####[facility] [place] [address], USAeGFR (non-black)mL/min/{1.73_m2}Normal>60The [facility] Comment on above:Order Comment: << On admission If not done in ED>>No: Do not add to previous drawPerformed By: #### 90278, 72356, 70640, 48566, 63015 ####[facility] [facility] [address], [facility] Glucose mass hmbx411 mg/pTVpgk94-328Sse [facility] Comment on above:Order Comment: << On admission If not done in ED>>No: Do not add to previous drawPerformed By: #### 98627, 16824, 44658, 64084, 24783 ####[facility] [place] [address], [facility] Potassium molar conc4.2 mmol/LNormal3.5-5.1The [facility] HospitalComment on above:Order Comment: << On admission If not done in ED>>No: Do not add to previous drawPerformed By: #### 91216, 07788, 61644, 41943, 21009 ####[facility] [place] [address], [facility] Mhszzl169 mmol/DPep119-899Phw [facility] HospitalComment on above:Order Comment: << On admission If not done in ED>>No: Do not add to previous drawPerformed By: #### 40237, 66609, 35297, 31857, 39862 ####[facility] [place] [address], [facility] CENTERUrea whlmlapk91 mg/dLNormal7-25The [facility] HospitalComment on above:Order Comment: << On admission If not done in ED>>No: Do not add to previous draw Performed By: #### 46939, 82999, 63918, 15254, 84195 ####[facility] [facility] [place] [address], [facility] CENTERCBC COMPLETE BLOOD COUNTon 34-76-4579Opowydgbuup distribution width Auto Ratio (RBC)13.6 %Nqjyfs66.5-16.9 The [facility] HospitalComment on above:Order Comment: << On admission If not done in ED>>No: Do not add to previous drawPerformed By: #### 81537, 33248, 32537, 76553, 03742 ####[facility] [place] [address], [facility] CENTERErythrocytes (RBC)2.85 mill/qd4Cwo6.30-5.90 The [facility] HospitalComment on above:Order Comment: << On admission If not done in ED>>No: Do not add to previous drawPerformed By: #### 06127, 44701, 96520, 06536, 37946 ####[facility] [place] [address], [facility] CENTERHematocrit (HCT)28.6 %Low39.0-55.0The [facility] HospitalComment on above:Order Comment: << On admission If not done in ED>>No: Do not add to previous drawPerformed By: #### 59439, 80174, 41224, 34983, 35093 ####[facility] [place] [address], [facility] CENTERHemoglobin mass conc (Bld)9.5 g/dLLow 13.9-16.3The [facility] HospitalComment on above:Order Comment: << On admission If not done in ED>>No: Do not add to previous drawPerformed By: #### 73938, 96357, 28230, 30269, 93809 ####[facility] [place] [address], YEDHNJ05.3 qlUdyu72.0-32.0The [facility] HospitalComment on above:Order Comment: << On admission If not done in ED>>No: Do not add to previous drawPerformed By: #### 41861, 33465, 76365, 68434, 98549 ####[facility] [place] [address], [facility] CENTERMCHC mass conc (RBC)33.2 g/sZCiwwyy10.0-36.0 The [facility] HospitalComment on above:Order Comment: << On admission If not done in ED>>No: Do not add to previous drawPerformed By: #### 18731, 37858, 50441, 07073, 82367 ####[facility] [place] [address], FVEQCR405.4 uKXxpp47.0-100.0The [facility] HospitalComment on above:Order Comment: << On admission If not done in ED>>No: Do not add to previous drawPerformed By: #### 38621, 35456, 65948, 37090, 40461 ####[facility] [place], [place] [address]PLAT VOJ287 Thou/yi7Lkenfg454-974Jic [facility] HospitalComment on above:Order Comment: << On admission If not done in ED>>No: Do not add to previous drawPerformed By: #### 09674, 71206, 07941, 07081, 21713 ####[address] WBC (Leukocytes)23.1 Thou/cw8Qufi9.0-10.0The [facility] Comment on above:Order Comment: << On admission If not done in ED>>No: Do not add to previous drawPerformed By: #### 08729, 96300, 01624, 27579, 83374 ####[address] CHEST W CONTRASTon 34-28-1251HX CHEST W CONTRASTUnUniversity Hospitals Cleveland Medical CenterDepartment of Jcrplxnh[address] [place] [id number] Patien t Name: TORSTEN HAYWOOD : 1955Sex: MAge: Race: WhiteMRN: [id number]. Location: [id number]: IVisit #: [id number] Date: 12/22/2016 9:55:00 AMCompleted Date: 12/22/2016 11:58 AMRequesting Provider: ALESHA KAUR Attending Provider: TORSTEN YEPEZ Report Copy To: Signs & Symptoms: Fluid CollectionHistory: Patient history not availableComments: R/O InfiltratesExam: CT CHEST W CONTRASTAccession #: [id number] ======SIGNS AND SYMPTOMS: Fluid Collection Mid chest [...] Electronically signed by:Obdulio Moraes M.D.. Transcribed by: [id number], User Resident: Electronically Signed by: OBDULIO MORAES @ 12/22/2016 12:29 PMNormalThe [facility] HospitalComment on above:Order Comment: << On admission If not done in ED>>No: Do not add to previous drawMAGNESIUM BLOODon 18-38-0562Mrsnmtfup0.9 mg/dLNormal1.9-2.7The [facility] HospitalComment on above:Order Comment: << On admission If not done in ED>>No: Do not add to previous draw Performed By: #### 59152, 79914, 37517, 54519, 69018 ####[facility] [facility] [place] [address], [facility] CENTERPOC GLUCOSE LABon 19-95-7322Uhhbqon mass lzjv553 mg/ePQppm05-675Gkq [facility] HospitalComment on above:Performed By: #### 62355, 35651, 26324, 25389, 28686 ####[facility] [facility] [place] [address], [facility] Glucose mass tovi417 mg/wNUsqv08-849Fwn [facility] Comment on above:Performed By: #### 97190, 37898, 03661, 23257, 06738 ####[address] [place] [address], [facility] PORTABLE CHEST 1 VIEWon 11-53-0748ZRIMJTRC CHEST 1 VIEWUnUniversity Hospitals Cleveland Medical CenterDepartment of Bvoqrzbed[address] [place] [id number] Patien t Name: TORSTEN HAYWOOD DOB: 1955Sex: MAge: Race: WhiteMRN: [id number]. Location: [id number]: IVisit #: [id number] Date: 12/22/2016 5:00:00 AMCompleted Date: 12/22/2016 08:33 AMRequesting Provider: GIOVANY FARIAS Attending Provider: TORSTEN YEPEZ Report Copy To: Signs & Symptoms: O2 DesaturationHistory: Patient history not availableComments: R/O EffusionExam: PORTABLE CHEST 1 VIEWAccession #: [id number] ========PORTABLE CHEST 1 VIEW 12/22/2016 8:33 AM [...] and pneumonia. Electronically signedby:Rayshawn Hall. Transcribed by: [email or web address], User Resident: Electronically Signed by: RAYSHAWN HALL @ 12/22/2016 02:58 PMNormal The [facility] HospitalComment on above:Order Comment: << On admission If not done in ED>>No: Do not add to previous drawPROTHROMBIN TIMEon 88-24-8766JRK Coag RelTime (PPP)1.25 {INR}High0.91-1.16The [facility] HospitalComment on above:Order Comment: << On admission [...] ACTION, CLINICALEFFECTIVENESS, AND OPTIMAL THERAPEU TIC RANGE. [id number];108:231S-246S.Performed By: #### 64895, 73678, 78405, 32962, 20096 ####[facility] [facility] [place] [address], [facility] CENTERProthrombin time (PT) Coag time (PPP)15.8 sHigh12.3-14.8The [facility] HospitalComment on above:Order Comment: << On admission If not done in ED>>No: Do not add to previous drawResult Comment: ALL RESULTS MUST BE INTERPRETED WITH RESPECT TO BLOOD DRAWING ARTIFACTOR DILUTION ER ROR OF ANTICOAGULANT AT THE TIME OF SAMPLING.Performed By: #### 94760, 49346, 75937, 07438, 21852 ####[facility] [place] [address], USATYPE AND SCREENon 78-13-0090KLC INTERPRETATIONBNormal The [facility] HospitalComment on above:Performed By: #### 10020, 59769, 56207, 94186, 69199 ####[facility] [place] [address], USAANTIBODY SCREENNegativePeoples HospitalComment on above:Performed By: #### 48758, 37209, 64212, 18950, 05990 ####[facility] [place] [address], USARH INTERPRETATIONPositivePeoples HospitalComment on above:Performed By: #### 81823, 83360, 70302, 77542, 51781 ####[facility] [place] [address], [place] UFH HEPARIN ASSAYon 72-73-5036PJYAJUZSGMJROY HEPARIN0.21 IU/mLLow0.30-0.70The [facility] HospitalComment on above:Result Comment: Rivaroxaban and Apixaban will interfere with the anti Xa assay used tomonitor UFH and LMWH. Performed By: #### 46870, 67187, 07460, 24506, 38093 ####[facility] [place] [address], [facility] CENTERUNFRACTIONATED HEPARIN <0.10Critically low0.30-0.70The [facility] HospitalComment on above:Result Comment: Rivaroxaban and Apixaban will interfere with the anti Xa assay used tomonitor UFH and LMWH.RESULTS CHECKED AND CALLED. ACCURATELY READ BACK BY JESSICA LEE RN AT09:15Performed By: #### 17909, 13190, 51737, 84457, 27701 ####[facility] [address], USAResult Comment: Rivaroxaban and Apixaban will interfere with the anti Xa assay used tomonitor UFH and LMWH.RESULTS CHECKED AND CALLED. ACCURATELY READ BACK BY DWIGHT BUCKLEY 0151APC RESISTANCE ASSAYon 62-54-4026QUF RESISTANCE 1.6 RATIOLow2.0-4.9The [facility] HospitalComment on above:Order Comment: << On admission If not done in ED>>No: Do not add to previous draw Result Comment: DUE TO THE LOW APC RESISTANCE RESULT, A FACTOR V LEIDEN GENE MUTATIONTEST IS SUGGESTED ON THIS PATIENT.Performed By: #### 55941, 45828, 62907, 04269, 23608 ####[facility] [place] [address], USAARTERIAL BLOOD GAS W/COOXon 75-51-4899EIID EXCESS4 mmol/GVjwi-8-0Hva [facility] HospitalComment on above:Performed By: #### 43164 ####[facility] [place] [address], USABicarbonate (HCO3)29 mmol/NXuii15-65Dvu [facility] HospitalComment on above:Performed By: #### 55313 ####[facility] [place] [address], BHTVN771 flSwErlhsq33-61Itx [facility] HospitalComment on above:Performed By: #### 81979 ####[facility] [place] [address], [place] COHB1 %Normal0-1The [facility] HospitalComment on above: Performed By: #### 73312 ####[facility] [place] [address], USADELIVERY SYSTEMSUniversity Hospitals Portage Medical CenterComment on above:Performed By: #### 46508 ####[facility] [place] [address], PKCZZC0015 %Qtupvj75-501Tsq [facility] HospitalComment on above:Performed By: #### 90117 ####[facility] [place] [address], [place] LPM40.0 LPMHigh0.5-20.0The [facility] HospitalComment on above: Performed By: #### 82139 ####[facility] [place] [address], USAMETHB1.1 %Normal0.0-1.5The [facility] HospitalComment on above:Performed By: #### 53731 ####[facility] [place] [address], USAO2 mylvgbcdxz42.2 %Normal 94.0-97.0The [facility] HospitalComment on above:Performed By: #### 12636 ####[facility] [place] [address], USAOxygen in arterial mm[Hg]Critically [id number] [facility] HospitalComment on above:Performed By: #### [id number] ####[facility] [place] [address], USApH of blood7.43 [pH]Normal7.35-7.45The [facility] HospitalComment on above: Performed By: #### [id number] ####[facility] [place] [address], QPXLKC90.6 g/dLLow13.9-16.3The [facility] [place] [facility] HospitalComment on above:Performed By: #### [id number] ####[facility] [place] [address], USABASE EXCESS5 mmol/LHigh -2-2The [facility] HospitalComment on above:Performed By: #### [id number] ####[facility] [place] [address], USABicarbonate (HCO3)29 mmol/OPbkx12-04Ema [facility] HospitalComment on above:Performed By: #### [id number] ####[facility] [place] [address], LRCIW452 siUxYlxzra02-25Pce [facility] HospitalComment on above:Performed By: #### [id number] ####[facility] [place] [address], [place] COHB2 %High0-1The [facility] [place] City HospitalComment on above:Performed By: #### [id number] ####[facility] [facility] [place] [address], [facility] CENTERDELIVERY SYSTEMSBARIX CLINICS OF PENNSYLVANIANoThe [facility] Comment on above:Performed By: #### 35990 ####[facility] [facility] [place] [address], HJOMFB8154 %Drungu53-408Gte [facility] [place] [facility] HospitalComment on above:Performed By: #### 77850 ####[facility] [facility] [place] [address], [place] LPM40.0 LPMHigh0.5-20.0The [facility] [place] [facility] HospitalComment on above: Performed By: #### 38659 ####[facility] [facility] [place] [address], USAMETHB1.0 %Normal0.0-1.5The [facility] [place] [facility] HospitalComment on above:Performed By: #### 89442 ####[facility] [facility] [place] [address], USAO2 nylqldufzf55.3 %Low 94.0-97.0The [facility] [place] [facility] HospitalComment on above:Performed By: #### 55031 ####[facility] [facility] [place] [address], USAOxygen in arterial blood61 mm[Hg]Tkx28-046Hcm [facility] [place] [facility] HospitalComment on above:Performed By: #### 00663 ####[facility] [facility] [place] [address], [facility] CENTERpH of blood7.44 [pH] Normal7.35-7.45The [facility] [place] [facility] HospitalComment on above:Performed By: #### 39950 ####[facility] [place] [address], QORKUO89.3 g/dLLow13.9-16.3The [facility] [place] [facility] HospitalComment on above:Performed By: #### 27582 ####[address] [place] [address], [facility] MEDICAL CENTERARTERIAL BLOOD GAS WITH ICAon 66-77-9748HGLN EXCESS6 mmol/YDfjz-2-7Ezz [facility] [place] [facility] HospitalComment on above:Performed By: #### 13502, 44988, 96119, 40710, 40227 ####[address] [place] [address], [facility] Bicarbonate (HCO3)31 mmol/LCritically adih79-61Vad [facility] [place] [facility] HospitalComment on above:Performed By: #### 65554, 49693, 69801, 05282, 89047 ####[address] [place] [address], [facility] CO246 adEaSiog13-55Tiu [facility] [place] [facility] HospitalComment on above: Performed By: #### 56276, 12172, 33421, 98269, 05245 ####[address] [place] [address], USADELIVERY SYSTEMSHFNCNormal The [facility] [place] [facility] HospitalComment on above:Performed By: #### 14160, 26727, 68257, 64033, 66569 ####[address] [place] [address], ONKJDC481 %Yfjbze25-570Yei [facility] [place] [facility] HospitalComment on above:Result Comment: Result changed by ROBERT on 12/21/2016 21:58. The previous value was80.Performed By: #### 13299, 83792, 00172, 10503, 10954 ####[address] [place] [address], [facility]ICAL CENTERIONIZED CALCIUM1.09 mmol/LLow1.13-1.32The [facility] [place] [facility] HospitalComment on above:Performed By: #### 84744, 18582, 92032, 54452, 93328 ####[facility] [place] [address], ALRKAL42.0 LPMHigh0.5-20.0The [facility] Comment on above:Performed By: #### 59577, 80156, 10782, 64928, 40164 ####[facility] [place] [address], [place] O2 tigpqoekih53.3 %Nbhphg81.0-97.0The [facility] [place] [facility] HospitalComment on above:Performed By: #### 10026, 51683, 06782, 53353, 17432 ####[facility] [place] [address], USAOxygen in arterial blood86 mm[Hg]Dvqajy25-405Tho [facility] [place] [facility] HospitalComment on above:Performed By: #### 05634, 49366, 17214, 58481, 88203 ####[facility] [place] [address], USApH of blood7.43 [pH]Normal7.35-7.45The [facility] [place] [facility] HospitalComment on above: Performed By: #### 40783, 52614, 70098, 21149, 15692 ####[facility] [place] [address], USABASE EXCESS6 mmol/LHigh -2-2The [facility] [place] [facility] HospitalComment on above:Performed By: #### 92014 ####[facility] [place] [address], USABicarbonate (HCO3)30 mmol/ITcyv96-75Wle [facility] [place] [facility] HospitalComment on above:Performed By: #### 61363 ####[facility] [place] [address], OMKQG080 tjMpFtvlib02-19Edr [facility] [place] [facility] HospitalComment on above:Performed By: #### 85435 ####[facility] [place] [address], [facility] DELIVERY SYSTEMSUniversity Hospitals Portage Medical CenterComment on above:Performed By: #### 96636 ####[facility] [place] [address], OAKSCK2554 %Mucljb99-523Xoq [facility] [place] [facility] HospitalComment on above:Performed By: #### 70626 ####[facility] [place] [address], [facility]ICAL CENTERIONIZED CALCIUM1.17 mmol/LNormal1.13-1.32The [facility] [place] [facility] HospitalComment on above: Performed By: #### 09268 ####[facility] [address], PEKQZN69.0 LPMHigh0.5-20.0The [facility] [place] [facility] HospitalComment on above:Performed By: #### 95492 ####[facility] [place] [address], [facility] MEDICAL CENTERO2 ealaqbnrpu82.4 %Low 94.0-97.0The [facility] [place] [facility] HospitalComment on above:Performed By: #### 97560 ####[facility] [place] [address], USAOxygen in arterial blood67 mm[Hg]Dyt58-855Mxl [facility] [place] [facility] HospitalComment on above:Performed By: #### 84282 ####[facility] [address], [facility] CENTERpH of blood7.46 [pH]High 7.35-7.45The [facility] [place] [facility] HospitalComment on above:Performed By: #### 71079 ####[facility] [place] [address], USABASE EXCESS6 mmol/UIsfx-3-3Vav [facility] Comment on above:Performed By: #### 11383 ####[facility] [place] [address], USABicarbonate (HCO3)30 mmol/LHigh 23-27The [facility] [place] [facility] HospitalComment on above:Performed By: #### 09529 ####[facility] [place] [address], QLMOV893 znMlEszvvh90-57Jne [facility] [place] [facility] HospitalComment on above:Performed By: #### 43518 ####[facility] [facility] [place] [address], USADELIVERY SYSTEMSUniversity Hospitals Portage Medical CenterComment on above:Performed By: #### 13378 ####[facility] [facility] [place] [address], XSSYJX5851 %Normal 21-100The [facility] [place] [facility] HospitalComment on above:Performed By: #### 24280 ####[facility] [facility] [place] [address], USAIONIZED CALCIUM1.16 mmol/LNormal1.13-1.32The [facility] [place] [facility] HospitalComment on above:Performed By: #### 55665 ####[facility] [place] [address], CUSAMQ40.0 LPMHigh0.5-20.0 The [facility] [place] [facility] HospitalComment on above:Performed By: #### 45564 ####[facility] [facility] [place] [address], [place] O2 oxorasyogj84.8 %Low94.0-97.0The [facility] [place] [facility] HospitalComment on above:Performed By: #### 70930 ####[facility] [facility] [place] [address], USAOxygen in arterial blood56 mm[Hg]Eha89-478Rmk [facility] [place] [facility] HospitalComment on above:Performed By: #### 16186 ####[facility] [place] [address], [place] pH of blood7.48 [pH]High7.35-7.45The [facility] [place] [facility] HospitalComment on above:Performed By: #### 21999 ####[facility] [place] [address], USABASIC METABOLIC PANELon 19-74-3956Irsbzfk9.2 mg/dLLow8.6-10.3The [facility] [place] [facility] HospitalComment on above:Order Comment: << On admission If not done in ED>>No: Do not add to previous draw Performed By: #### 78952, 55816, 27386, 33329, 58972 ####[facility] [place] [address], EMQLcehkkzt464 mmol/LNormal 98-107The [facility] [place] [facility] HospitalComment on above:Order Comment: << On admission If not done in ED>>No: Do not add to previous drawPerformed By: #### 62483, 06500, 71215, 26254, 20261 ####[facility] [address], DPQNN618 mmol/MMpwtfe71-06Poc [facility] [place] [facility] HospitalComment on above:Order Comment: << On admission If not done in ED>>No: Do not add to previous drawPerformed By: #### 90832, 51379, 73476, 58243, 98646 ####[facility] [place] [address], USACreatinine0.80 mg/dLNormal0.70-1.30The [facility] [place] [facility] HospitalComment on above:Order Comment: << On admission If not done in ED>>No: Do not add to previous drawPerformed By: #### 37674, 95615, 71126, 44162, 05303 ####[facility] [place] [address], USAeGFR (black)mL/min/{1.73_m2}Normal>60The [facility] [place] [facility] HospitalComment on above:Order Comment: << On admission If not done in ED>>No: Do not add to previous drawPerformed By: #### 21131, 44627, 98535, 29851, 54012 ####[facility] [place] [address], USAOrder Comment: No: Do not add to previous drawPerformed By: #### 40964 ####[facility] [place] [address], USAeGFR (non-black)mL/min/{1.73_m2}Normal>60The [facility] [place] [facility] HospitalComment on above:Order Comment: << On admission If not done in ED>>No: Do not add to previous drawPerformed By: #### 44403, 31843, 29062, 75456, 04342 ####[facility] [place] [address], USAOrder Comment: No: Do not add to previous drawPerformed By: #### 44864 ####[facility] [place] [address], [facility] CENTERGlucose mass jwvg286 mg/jBHgpt33-013Wky [facility] [place] [facility] HospitalComment on above:Order Comment: << On admission If not done in ED>>No: Do not add to previous drawPerformed By: #### 05805, 26018, 00784, 14565, 12348 ####[facility] [place] [address], USAPotassium molar conc4.3 mmol/LNormal3.5-5.1 The [facility] [place] [facility] HospitalComment on above:Order Comment: << On admission If not done in ED>>No: Do not add to previous drawPerformed By: #### 18306, 85069, 84903, 27353, 81697 ####[facility] [place] [address], WEOYjeydd248 mmol/NPqq769-396Ndb [facility] [place] [facility] HospitalComment on above:Order Comment: << On admission If not done in ED>>No: Do not add to previous drawPerformed By: #### 79473, 51212, 80789, 79674, 47924 ####[facility] [place] [address], [facility]ICAL CENTERUrea vachoyls74 mg/dLNormal7-25The [facility] [place] [facility] HospitalComment on above:Order Comment: << On admission If not done in ED>>No: Do not add to previous drawPerformed By: #### 61762, 87342, 55277, 07702, 39946 ####[facility] [place] [address], [facility] Order Comment: No: Do not add to previous drawPerformed By: #### 69534 ####[facility] [place] [address], [facility] Calcium8.1 mg/dLLow8.6-10.3The [facility] [place] [facility] HospitalComment on above:Order Comment: No: Do not add to previous drawPerformed By: #### 60362 ####[facility] [place] [address], [facility] Glagntcj675 mmol/LQjvifa53-745Lvy [facility] [place] [facility] HospitalComment on above:Order Comment: No: Do not add to previous drawPerformed By: #### 15191 ####[facility] [place] [address], [facility] CO228 mmol/YWspvxz20-23Wlc [facility] [place] [facility] HospitalComment on above: Order Comment: No: Do not add to previous drawPerformed By: #### 15155 ####[facility] [place] [address], [place] Creatinine0.82 mg/dLNormal0.70-1.30The [facility] Comment on above:Order Comment: No: Do not add to previous drawPerformed By: #### 99921 ####[facility] [place] [address], [facility]ICAL CENTERGlucose mass pefe742 mg/rPVaum75-940Tfq [facility] [place] [facility] HospitalComment on above:Order Comment: No: Do not add to previous drawPerformed By: #### 33078 ####[facility] [place] [address].[place] [address], [facility] CENTERPotassium molar conc4.2 mmol/LNormal3.5-5.1The [facility] [place] [facility] HospitalComment on above:Order Comment: No: Do not add to previous drawPerformed By: #### 41030 ####[facility] [place], [place] [address]E[place] [address], VEEUjirdx258 mmol/DYlihyl812-322Tdd [facility] [place] [facility] HospitalComment on above:Order Comment: No: Do not add to previous drawPerformed By: #### 92188 ####[address] [place] [address], [facility]ICAL CENTERCBC COMPLETE BLOOD COUNTon 75-40-6935Ktxfprqvzwl distribution width Auto Ratio (RBC)14.0 %Mjpxgs44.5-16.9 The [facility] [place] [facility] HospitalComment on above:Order Comment: No: Do not add to previous drawPerformed By: #### 10820 ####[facility] [place] [address].[place] [address], [facility] MEDICAL CENTERErythrocytes (RBC)3.05 mill/iy7Wmy5.30-5.90The [facility] [place] [facility] HospitalComment on above: Order Comment: No: Do not add to previous drawPerformed By: #### 09113 ####[address] [place] [address], [facility] Hematocrit (HCT)30.6 %Low39.0-55.0The [facility] [place] [facility] HospitalComment on above:Order Comment: No: Do not add to previous drawPerformed By: #### 34685 ####[facility] [facility] [address], [facility] Hemoglobin mass conc (Bld)10.1 g/dLLow13.9-16.3The [facility] [place] [facility] HospitalComment on above:Order Comment: No: Do not add to previous drawPerformed By: #### 65235 ####[facility] [facility] [address], DMOSUK48.0 nvXalh16.0-32.0The [facility] Comment on above:Order Comment: No: Do not add to previous drawPerformed By: #### 72823 ####[facility] [facility] [address], [facility] CENTERMCHC mass conc (RBC)32.9 g/tMSltpve05.0-36.0The [facility] [place] [facility] HospitalComment on above:Order Comment: No: Do not add to previous draw Performed By: #### 29263 ####[facility] [facility] [place] [address], YRMPLM707.4 qUWize10.0-100.0The [facility] [place] [facility] HospitalComment on above:Order Comment: No: Do not add to previous draw Performed By: #### 62515 ####[facility] [facility] [address], USAPLAT DAO311 Thou/no7Tkepsj286-963Mmt [facility] [place] [facility] HospitalComment on above:Order Comment: No: Do not add to previous drawPerformed By: #### 80714 ####[facility] [place] [address], [facility]ICAL CENTERWBC (Leukocytes)24.2 Thou/um7Bewq3.0-10.0The [facility] [place] [facility] HospitalComment on above:Order Comment: No: Do not add to previous drawPerformed By: #### 60870 ####[facility] [place] [address], [facility] CENTERFACTOR V LEIDENon 08-91-2134OBVSNY V LEIDENHETEROZYGOUS FOR FACTOR V LEIDEN MUTATIONCritically abnormalNEGATIVE FOR FACTOR V LEIDEN MUTATIONThe [facility] [place] [facility] HospitalComment on above:Order Comment: << On admission [...] for other genetic risk factors including theprothrombin 84875Y>A mutation and 5, 10 methylenetetrahydrofolatereductase (MTHFR) mutation (c.677C>T; p.A222V). Genetic counseling isrecommended to discuss the implications of this test result. Inaddition, the study of other at-risk family members is recommended.Please contact the [facility] at [phone].METHODOLOGY: Genotyping of the mutation is determined by [...] bythe MolecularDiagnostics Department at the [facility].REFERENCES: 1) Elroy PM, et al. NEngl J Med. 1994 6;332(14):912-7.2) Juan R P, et al. Semin Thromb Hemost. 2006 Dec;32(7):700-8. 3) Odin MOHAMUD et al. Am. J. Hum. [place]ida. 62: 0632-6100, 1997. 4) Meron S,et al. J. Hum. Ne[place]. 48: 1-7, 2002. 5) Lorenzo IS, et al.Atherosclerosis 156(2):409, 2000.Performed By: #### 08593, 81036, 49706, 49245, 12217 ####[facility] SIGNED BY:Soda Maker, Department of PathologyPeoples HospitalComment on above:Order Comment: << On admission If not done in ED>>No: Do not add to previous drawPerformed By: #### 91611, 00890, 01552, 28940, 04869 ####[facility] [place] [address], [facility] CENTERMAGNESIUM BLOODon 59-46-8652Pqsksjyjr7.0 mg/dLNormal1.9-2.7The [facility] [place] [facility] HospitalComment on above:Order Comment: No: Do not add to previous drawPerformed By: #### 98298 ####[address] [place] [address], [facility] COL[facility]ICAL CENTERPOC GLUCOSE LABon 12-21-2016 Glucose mass fblk999 mg/yXOehl05-547Bet [facility] Comment on above:Performed By: #### 75671, 59261, 15912, 79996, 90119 ####[facility] [facility] [place] [address], [facility] Glucose mass ntde582 mg/cERxvc08-930Qgw [facility] Comment on above:Performed By: #### 74756 ####[place] [address] [facility] [place] [address], [facility] CENTERGlucose mass popd965 mg/dLHigh 70-100The [facility] [place] [facility] HospitalComment on above:Performed By: #### 91799 ####[address] [place] [address], USAGlucose mass conc94 mg/gFYhyqzk55-824Xrx [facility] [place] [facility] HospitalComment on above:Performed By: #### 99610 ####[facility] [place] [address], [facility] CENTERGlucose mass yhqj491 mg/dLHigh 70-100The [facility] [place] [facility] HospitalComment on above:Performed By: #### 10769 ####[facility] [place] [address], [facility] CENTERGlucose mass fusl983 mg/oOZajy57-825Utf [facility] [place] [facility] HospitalComment on above:Performed By: #### 86433 ####[facility] [place] [address], USAUFH HEPARIN ASSAYon 12-21-2016 UNFRACTIONATED HEPARIN<0.10Critically low0.30-0.70The [facility] [place] [facility] HospitalComment on above:Result Comment: Rivaroxaban and Apixaban will interfere with the anti Xa assay used tomonitor UFH and LMWH.RESULTS CHECKED AND CALLED. ACCURATELY READ BACK BY JESSICA LEE RN [id number] By: #### 38007, 66393, 05549, 75052, 47924 ####[facility] [place] [address], USAARTERIAL BLOOD GAS WITH ICAon 18-50-7242BVOW EXCESS4 mmol/LThms-8-5Qzl [facility] [place] [facility] HospitalComment on above:Order Comment: RESULTS CHECKED AND CALLED. ACCURATELY READ BACK BY JOSUÉ ANNAerformed By: #### 48022 ####[facility] [place] [address], USABicarbonate (HCO3)28 mmol/EPujl27-88Fmx [facility] HospitalComment on above:Order Comment: RESULTS CHECKED AND CALLED. ACCURATELY READ BACK BY JOSUÉ ANNAerformed By: #### 94371 ####[facility] [place] [address], RNPAD284 mmHgNormal 35-45The [facility] [place] [facility] HospitalComment on above:Order Comment: RESULTS CHECKED AND CALLED. ACCURATELY READ BACK BY JOSUÉ ANNAerformed By: #### 45055 ####[facility] [place] [address], USADELIVERY SYSTEMSCAMNormalThe [facility] Comment on above:Order Comment: RESULTS CHECKED AND CALLED. ACCURATELY READ BACK BY JOSUÉ ANNAerformed By: #### 52262 ####[facility] [place] [address], CRHZLB380 %Khijgc83-932Izb [facility] [place] [facility] HospitalComment on above:Order Comment: RESULTS CHECKED AND CALLED. ACCURATELY READ BACK BY JOSUÉ ANNAerformed By: #### 83801 ####[facility] [place] [address], USAIONIZED CALCIUM 1.16 mmol/LNormal1.13-1.32The [facility] [place] [facility] HospitalComment on above:Order Comment: RESULTS CHECKED AND CALLED. ACCURATELY READ BACK BY JOSUÉ ANNAerformed By: #### 28871 ####[facility] [place] [address], GMJKJI79.0 LPMNormal0.5-20.0The [facility] [place] [facility] HospitalComment on above:Order Comment: RESULTS CHECKED AND CALLED. ACCURATELY READ BACK BY JOSUÉ ANNAerformed By: #### 03204 ####[facility] [place] [address], USAO2 dopxxyjzdn72.1 % Low94.0-97.0The [facility] [place] [facility] HospitalComment on above:Order Comment: RESULTS CHECKED AND CALLED. ACCURATELY READ BACK BY JOSUÉ ANNAerformed By: #### 50855 ####[facility] [place] [address], USAOxygen in arterial blood50 mm[Hg]Critically szu07-472Sbf [facility] HospitalComment on above:Order Comment: RESULTS CHECKED AND CALLED. ACCURATELY READ BACK BY JOSUÉ RNPerformed By: #### 12482 ####[facility] [facility] [address], [facility] pH of blood7.45 [pH]Normal7.35-7.45The [facility] Comment on above:Order Comment: RESULTS CHECKED AND CALLED. ACCURATELY READ BACK BY JOSUÉ RNPerformed By: #### 46895 ####[facility] [facility] [address], [facility]ENTERBASE EXCESS5 mmol/PPyjl-7-3Qie [facility] [place] [facility] HospitalComment on above:Order Comment: RESULTS CHECKED AND CALLED. ACCURATELY READ BACK BY JOSUÉ RNPerformed By: #### 91360 ####[facility] [facility] [address], [facility] Bicarbonate (HCO3)28 mmol/YUjit98-94Tha [facility] Comment on above:Order Comment: RESULTS CHECKED AND CALLED. ACCURATELY READ BACK BY JOSUÉ RNPerformed By: #### 01003 ####[facility] [facility] [place] [address], HSPJE523 vpFcUzeerv60-53Wvq [facility] [place] [facility] HospitalComment on above:Order Comment: RESULTS CHECKED AND CALLED. ACCURATELY READ BACK BY JOSUÉ RNPerformed By: #### 49881 ####[facility] [facility] [address], [facility] DELIVERY SYSTEMSCOOL AEROSOL MASKNormalThe [facility] Comment on above:Order Comment: RESULTS CHECKED AND CALLED. ACCURATELY READ BACK BY JOSUÉ RNPerformed By: #### 33677 ####[facility] [facility] [place] [address], FEVTIG561 %Kgwknp17-873Bnv [facility] [place] [facility] HospitalComment on above:Order Comment: RESULTS CHECKED AND CALLED. ACCURATELY READ BACK BY JOSUÉ RNPerformed By: #### 94314 ####[facility] [place] [address], USAIONIZED CALCIUM 1.17 mmol/LNormal1.13-1.32The [facility] HospitalComment on above:Order Comment: RESULTS CHECKED AND CALLED. ACCURATELY READ BACK BY JOSUÉ ANNAerformed By: #### 99892 ####[facility] [place] [address], RNWKVY29.0 LPMNormal0.5-20.0The [facility] [place] [facility] HospitalComment on above:Order Comment: RESULTS CHECKED AND CALLED. ACCURATELY READ BACK BY JOSUÉ ANNAerformed By: #### 72844 ####[facility] [place] [address], [facility] CENTERO2 zapdmjvgan12.1 % Low94.0-97.0The [facility] [place] [facility] HospitalComment on above:Order Comment: RESULTS CHECKED AND CALLED. ACCURATELY READ BACK BY JOSUÉ ANNAerformed By: #### 08941 ####[facility] [place] [address], USAOxygen in arterial blood50 mm[Hg]Critically rot84-832Mie [facility] HospitalComment on above:Order Comment: RESULTS CHECKED AND CALLED. ACCURATELY READ BACK BY JOSUÉ ANNAerformed By: #### [id number] ####[facility] [place] [address], [place] pH of blood7.47 [pH]High7.35-7.45The [facility] HospitalComment on above:Order Comment: RESULTS CHECKED AND CALLED. ACCURATELY READ BACK BY JOSUÉ ANNAerformed By: #### [id number] ####[facility] [place] [address], USABASE EXCESS1 mmol/DEtftex-2-2Jjj [facility] HospitalComment on above:Order Comment: R/O CHFPerformed By: #### [id number] ####[facility] [facility] [place] [address], USABicarbonate (HCO3)26 mmol/MAhkten34-73Cqk [facility] HospitalComment on above:Order Comment: R/O CHFPerformed By: #### 57542 ####[facility] [place] [address], [place] CO240 rgTsCqhlsw45-43Myc [facility] HospitalComment on above: Order Comment: R/O CHFPerformed By: #### 92787 ####[facility] [place] [address], USADELIVERY SYSTEMSKindred Hospitale [facility] HospitalComment on above:Order Comment: R/O CHF Performed By: #### 28106 ####[facility] [place] [address], USAIONIZED CALCIUM1.24 mmol/LNormal1.13-1.32The [facility] HospitalComment on above:Order Comment: R/O CHFPerformed By: #### 22041 ####[facility] [place] [address], USALPM6.0 LPMNormal0.5-20.0The [facility] HospitalComment on above:Order Comment: R/O CHFPerformed By: #### 49023 ####[facility] [place] [address], USAO2 ujolahbrac71.9 % Low94.0-97.0The [facility] HospitalComment on above:Order Comment: R/O CHFPerformed By: #### 63377 ####[facility] [place] [address], USAOxygen in arterial blood54 mm[Hg] Critically eds46-237Nut [facility] HospitalComment on above: Order Comment: R/O CHFPerformed By: #### 22430 ####[facility] [place] [address], USApH of blood7.42 [pH]Normal 7.35-7.45The [facility] [place] [facility] HospitalComment on above:Order Comment: R/O CHFPerformed By: #### 70137 ####[facility] [place] [address], USABASIC METABOLIC PANELon 74-09-7684Yyxrjnu9.1 mg/dLLow8.6-10.3The [facility] HospitalComment on above:Order Comment: R/O CHFPerformed By: #### 39835, 18564, 78844 ####[facility] [place] [address], GGJEuwymcmv080 mmol/LNormal 98-107The [facility] HospitalComment on above:Order Comment: R/O CHFPerformed By: #### 13158, 60399, 39128 ####[facility] [place] [address], IWJRZ687 mmol/XBtxlji34-03Yhw [facility] HospitalComment on above:Order Comment: R/O CHF Performed By: #### 71282, 95870, 59242 ####[facility] [place] [address], USACreatinine0.84 mg/dLNormal 0.70-1.30The [facility] [place] [facility] HospitalComment on above:Order Comment: R/O CHFPerformed By: #### 93272, 50095, 06170 ####[facility] [place] [address], USAeGFR (black)mL/min/{1.73_m2}Normal >60The [facility] [place] [facility] HospitalComment on above:Order Comment: R/O CHFPerformed By: #### 87321, 40776, 37283 ####[facility] [place] [address], USAeGFR (non-black)mL/min/{1.73_m2} Normal>60The [facility] HospitalComment on above:Order Comment: R/O CHFPerformed By: #### 17909, 49739, 49055 ####[facility] [place] [address], [facility] MEDICAL CENTERGlucose mass zlej445 mg/dLHigh 70-100The [facility] [place] [facility] HospitalComment on above:Order Comment: R/O CHFPerformed By: #### 36574, 78312, 76236 ####[facility] [place] [address], USAPotassium molar conc4.3 mmol/L Normal3.5-5.1The [facility] HospitalComment on above:Order Comment: R/O CHFPerformed By: #### 81226, 28867, 60432 ####[facility] [place] [address], ENILhthzd072 mmol/LNormal 136-145The [facility] HospitalComment on above:Order Comment: R/O CHFPerformed By: #### 38820, 94355, 29003 ####[facility] [place] [address], USAUrea gadmygea52 mg/dLNormal7-25The [facility] HospitalComment on above:Order Comment: R/O CHF Performed By: #### 31051, 13356, 32046 ####[facility] [place] [address], [facility]ICAL CENTERCBC COMPLETE BLOOD COUNTon 12-34-0548Gocnvmmteph distribution width Auto Ratio (RBC)13.8 %Hiqrch57.5-16.9 The [facility] [place] [facility] HospitalComment on above:Order Comment: R/O CHF Performed By: #### 36003 ####[facility] [place] [address], [facility] MEDICAL CENTERErythrocytes (RBC)3.49 mill/al7Kil0.30-5.90The [facility] [place] [facility] HospitalComment on above:Order Comment: R/O CHF Performed By: #### 75587 ####[facility] [place] [address], [facility] MEDICAL CENTERHematocrit (HCT)35.2 %Low39.0-55.0The [facility] [place] [facility] HospitalComment on above:Order Comment: R/O CHFPerformed By: #### 19638 ####[facility] [place] [address], [facility] MEDICAL CENTERHemoglobin mass conc (Bld)11.7 g/dLLow13.9-16.3The [facility] [place] [facility] HospitalComment on above:Order Comment: R/O CHFPerformed By: #### 53739 ####[facility] [place] [address], DVIDZQ95.4 hhKfbr03.0-32.0The [facility] [place] [facility] HospitalComment on above:Order Comment: R/O CHFPerformed By: #### 82878 ####[facility] [place] [address], [facility]ICAL CENTERMCHC mass conc (RBC)33.1 g/fDFyfxcn51.0-36.0The [facility] [place] [facility] HospitalComment on above:Order Comment: R/O CHFPerformed By: #### 23433 ####[facility] [place] [place] [address], FIJUQQ677.7 aZQwbw70.0-100.0The [facility] [place] [facility] HospitalComment on above:Order Comment: R/O CHF Performed By: #### 75523 ####[facility] [place] [address], USAPLAT SUR814 Thou/br4Jnejfl305-820Nha [facility] [place] [facility] HospitalComment on above:Order Comment: R/O CHFPerformed By: #### 64220 ####[facility] [place] [address], [facility] MEDICAL CENTERWBC (Leukocytes)17.2 Thou/ci5Tuok1.0-10.0The [facility] [place] [facility] HospitalComment on above:Order Comment: R/O CHFPerformed By: #### 02562 ####[facility] [facility] [place] [address], [facility] COOXIMETRYon 19-80-8581KWWF9 %NormalThe [facility] Comment on above:Order Comment: R/O CHFPerformed By: #### 43071 ####[facility] [place] [address], USAMETHB1 %Normal The [facility] [place] [facility] HospitalComment on above:Order Comment: R/O CHF Performed By: #### 60038 ####[facility] [facility] [place] [address], [facility] CENTERO2 siwslvmnen56.4 %Low60.0-80.0The [facility] [place] [facility] HospitalComment on above:Order Comment: R/O CHFPerformed By: #### 66780 ####[facility] [facility] [place] [address], [facility] THB11.1 g/dLLow13.9-16.3The [facility] [place] [facility] HospitalComment on above: Order Comment: R/O CHFPerformed By: #### 80090 ####[facility] [facility] [place] [address], [facility] CENTERCPK-MB PROFILEon 71-20-9551TZKG5.1 ng/mLCritically high0.0-1.9The [facility] [place] [facility] HospitalComment on above:Order Comment: R/O CHFResult Comment: M-CRITICAL RESULT(S) REVIEWED, CALLED TO AND READ BACK BY DWIGHT SERRANO @ 05Performed By: #### 34700, 53988, 48056 ####[facility] [place] [address], YNDODAX44.4 ng/mLHigh0.0-5.0The [facility] Comment on above:Order Comment: R/O CHFResult Comment: IF TOTAL CK <200 U/L AND: 1. CKMB IS 5-10 NG/ML----BORDERLINE 2. CKMB IS >10 NG/ML----INDICATIVE OF [place] OR IF TOTAL CK >200 U/L AND CKMB INDEX >1.9----INDICATIVE OF MIPerformed By: #### 11157, 97548, 72866 ####[facility] [place] [address], USACreatine kinase (CK)237 U/CGyap31-230Owx [facility] HospitalComment on above:Order Comment: R/O CHFPerformed By: #### 46566, 57840, 83138 ####[facility] [place] [address], USAMAGNESIUM BLOODon 50-73-8681Wrnivllus0.2 mg/dLNormal 1.9-2.7The [facility] [place] [facility] HospitalComment on above:Order Comment: R/O CHFPerformed By: #### 44854, 82462, 36127 ####[facility] [place] [address], USAPOC GLUCOSE LABon 12-20-2016 Glucose mass wcyf615 mg/vOBkrn35-462Lhl [facility] Comment on above:Performed By: #### 77929 ####[facility] [place] [address], USAGlucose mass qzod093 mg/dLHigh 70-100The [facility] [place] [facility] HospitalComment on above:Performed By: #### 92074 ####[facility] [place] [address], USAGlucose mass conc95 mg/uKRbzwec17-709Bes [facility] HospitalComment on above:Performed By: #### 22098 ####[facility] [place] [address], USAGlucose mass alog840 mg/dLHigh 70-100The [facility] [place] [facility] HospitalComment on above:Performed By: #### 11280 ####[facility] [facility] [place] [address], USAGlucose mass wukz594 mg/hVCgrq35-398Duj [facility] [place] [facility] HospitalComment on above:Performed By: #### 60402 ####[facility] [place] [address], USAGlucose mass wulj207 mg/dLHigh 70-100The [facility] [place] [facility] HospitalComment on above:Performed By: #### 57662 ####[facility] [facility] [place] [address], USAGlucose mass exrr611 mg/aUVijq41-941Tsw [facility] HospitalComment on above:Performed By: #### 89727 ####[facility] [facility] [place] [address], USAGlucose mass nlcm343 mg/dLHigh 70-100The [facility] HospitalComment on above:Performed By: #### 34715 ####[facility] [facility] [place] [address], USAGlucose mass lrbx358 mg/rAXdcl25-921Oyr [facility] HospitalComment on above:Performed By: #### 77473 ####[facility] [facility] [place] [address], USAGlucose mass yvat370 mg/dLHigh 70-100The [facility] [place] [facility] HospitalComment on above:Performed By: #### 52488 ####[facility] [facility] [place] [address], USAPORTABLE CHEST 1 VIEWon 56-99-5945IRZYHVPK CHEST 1 VIEWUnUniversity Hospitals Cleveland Medical CenterDepartment of Ngbiwurnq[address] [place] [id number] Patibc soriano Name: TORSTEN HAYWOOD : 1955Sex: MAge: Race: WhiteMRN: [id number]. Location: [id number]: IVisit #: [id number] Date: 12/20/2016 9:00:00 PMCompleted Date: 12/20/2016 09:17 PMRequesting Provider: JOSEPH HOLLINS Attending Provider: TORSTEN YEPEZ Report Copy To: Signs & Symptoms: Acute Respiratory DistressHistory: Patient history not availableComments: R/O AtelectasisExam: PORTABLE CHEST 1 VIEWAccession #: [id number] PORTABLE CHEST 1 VIEW 12/20/2016 9:17 PM [...] findings. Electronically signed by:Rafael Yanez. Transcribed by: [email or web address], User Resident: FREEDOM TIANElectronically Signed by: RAFAEL YANEZ @ 12/22/2016 03:36 AMI personally read this/these film(s) with this residentPeoples HospitalComment on above: Order Comment: << On admission If not done in ED>>No: Do not add to previous drawPROTHROMBIN TIMEon 27-87-4980SBS Coag RelTime (PPP)1.31 {INR}High0.91-1.16 [facility] SystemComment on above:Order Comment: R/O CHF Result Comment: ACCCP RECOMMENDED INR FOR WARFARIN THERAPY CONDITION INRPROPHYLAXIS OF VENOUS THROMBOSIS 2-3(HIGH-RISK SURGERY)TREATMENT OF VENOUS THROMBOSIS 2-3TREATMENT OF PULMONARY EMBOLISM 2-3PREVENTION OF SYSTEMIC EMBOLISM: 2-3 ACUTE MYOCARDIAL INFARCTION TISSUE HEART VALVES VALVULAR HEART DISEASE ATRIAL FIBRILLATION RECURRENT SYSTEMIC EMBOLISMMECHANICAL HEART VALVE 2.5-3.5 FROM: ORAL ANTICOAGULANTS. MECHANISM OF ACTION, CLINICALEFFECTIVENESS, AND OPTIMAL THERAPEU TIC RANGE. [id number];108:231S-246S.Performed By: #### 78459 ####[facility] [facility] [place] [address], [facility]ICAL CENTERProthrombin time (PT) Coag time (PPP)16.4 sHigh12.3-14.8The [facility] Comment on above:Order Comment: R/O CHFResult Comment: ALL RESULTS MUST BE INTERPRETED WITH RESPECT TO BLOOD DRAWING ARTIFACTOR DILUTION ERROR OF ANTICOAGULANT AT THE TIME OF SAMPLING.Performed By: #### 53499 ####[facility] [place] [address], [facility] CENTERACTIVATED CLOTTING TIMEon 03-77-0517RYQBQKZTR [place]ING RMYS519 jotNofuvv97-633Zlx [facility] HospitalComc.[facility] on above:Performed By: #### 35054, 37464, 18180, 50693, 68251 ####[facility] [place] [address], USAACTIVATED [place]ING NIXY123 hbuUvho40-825Vbr [facility] HospitalComc.[facility] on above:Performed By: #### 33280, 85766, 47813, 41641, 59320 ####[facility] [place] [address], USAACTIVATED [place]ING HBTH350 souQuts06-322Nbw [facility] HospitalComc.[facility] on above:Performed By: #### 86789, 78810, 73727, 91287, 14813 ####[facility] [place] [address], USAACTIVATED [place]ING UUNM752 ilePsph26-436Oyc [facility] HospitalComc.[facility] on above:Performed By: #### 89063, 81936, 22470, 34998, 56889 ####[facility] [place] [address], USAACTIVATED [place] CHBC871 pwqVzht00-659Wxg [facility] HospitalComc.[facility] on above:Performed By: #### 35373, 56543, 41323, 98595, 85306 ####[facility] [place] [address], USAACTIVATED [place] UISK741 vuqUyhd40-449Kbg [facility] HospitalComc.[facility] on above:Performed By: #### 12606, 51451, 07350, 74855, 73155 ####[facility] [place] [address], USAACTIVATED [place] PMDJ882 hboRuch59-844Ibq [facility] HospitalComc.[facility] on above:Performed By: #### 32060, 81515, 98308, 08134, 99880 ####[facility] [place] [address], USAACTIVATED [place]ING FDRZ679 dfsGnvm95-898Rif [facility] HospitalComment on above:Performed By: #### 05970, 17563, 87358, 23719, 16868 ####[facility] [place] [address], USAAPTTon 76-83-9716rVMV31.5 aYtpyyf90.0-35.0The [facility] [place] [facility] HospitalComment on above:Order Comment: No: Do not add [...] BE USED FOR THIS PURPOSE.Performed By: #### 54119, 90824, 48054, 73380, 95907 ####[facility] [place] [address], USAARTERIAL BLOOD GAS W/COOXon 00-76-4916WAQI EXCESS-2 mmol/FXzhrjg-8-4Kha [facility] HospitalComment on above:Performed By: #### 04773 ####[place] [address] [facility] [place] [address], USABicarbonate (HCO3)24 mmol/POnihzp02-31Rip [facility] HospitalComment on above: Performed By: #### 33565 ####[facility] [facility] [address], VHPVV426 grZeOzdz20-07Hme [facility] HospitalComment on above:Performed By: #### 29154 ####[place] [address] [facility] [place] [address], USACOHB2 %High0-1The [facility] [place] [facility] HospitalComment on above:Performed By: #### 73819 ####[address] [place] [address], JLBIDM704 %Normal 21-100The [facility] [place] [facility] HospitalComment on above:Performed By: #### 06213 ####[facility] [place] [address], USAMETHB1.0 %Normal0.0-1.5The [facility] [place] [facility] HospitalComment on above:Performed By: #### 87817 ####[facility] [facility] [place] [address], USAMIN VOLUME8.4NormMer[address] Health [address] Rita's Medical CenterComment on above:Performed By: #### 92088 ####[facility] [facility] [place] [address], [facility] CENTERMODALITYSPONTNoThe MetroHealth SystemComment on above:Performed By: #### 61495 ####[facility] [facility] [place] [address], [place] O2 wwealtdqlc59.3 %Low94.0-97.0The [facility] [place] [facility] HospitalComment on above:Performed By: #### 67934 ####[facility] [facility] [place] [address], USAOxygen in arterial blood74 mm[Hg]Wvs16-625Zel [facility] [place] [facility] HospitalComment on above:Performed By: #### 63262 ####[facility] [facility] [place] [address], [place] PEEP6.0 LSK32BwetkmRbnThe [facility] SystemComment on above: Performed By: #### 71067 ####[facility] [facility] [place] [address], [facility] CENTERpH of blood7.32 [pH]Low7.35-7.45The [facility] HospitalComment on above:Performed By: #### 30567 ####[facility] [place] [address].[place] [address], USAPRESSURE SUPPORT5 NormalThe [facility] HospitalComment on above:Performed By: #### 47123 ####[facility] [address], XOBUXT97.8 g/dLLow13.9-16.3The [facility] HospitalComment on above:Performed By: #### 91322 ####[facility] [place] [address], USAARTERIAL BLOOD GAS WITH ICAon 08-76-8321VNVL EXCESS-2 mmol/ATgoabc-6-7Veu [facility] HospitalComment on above:Order Comment: If not done in EDNo: Do not add to previous drawPerformed By: #### 74728 ####[facility] [place], [place] [address]E[place] [address], USABicarbonate (HCO3)23 mmol/JJwbbjq33-06Ula [facility] HospitalComment on above:Order Comment: If not done in EDNo: Do not add to previous drawPerformed By: #### 55768 ####[facility] [place] [address], NTTIX442 htHeTgfrqc90-54Wqq [facility] HospitalComment on above:Order Comment: If not done in EDNo: Do not add to previous drawPerformed By: #### 71030 ####[facility] [place] [address], QFGCLX897 %Normal 21-100The [facility] HospitalComment on above:Order Comment: If not done in EDNo: Do not add to previous drawPerformed By: #### 10172 ####[facility] [place] [address], [place] IONIZED CALCIUM1.15 mmol/LNormal1.13-1.32The [facility] Comment on above:Order Comment: If not done in EDNo: Do not add to previous draw Performed By: #### 54359 ####[facility] [place] [address], USAMIN VOLUME7.9NoThe [facility] SystemComment on above:Order Comment: If not done in EDNo: Do not add to previous drawPerformed By: #### 66076 ####[facility] [place] [address], USAMODALITYSIMVNoThe [facility] SystemComment on above:Order Comment: If not done in EDNo: Do not add to previous drawPerformed By: #### 14177 ####[facility] [place] [address], USAO2 .9 %Normal 94.0-97.0The [facility] HospitalComment on above:Order Comment: If not done in EDNo: Do not add to previous drawPerformed By: #### 69106 ####[facility] [place] [address], [place] Oxygen in arterial bonbj975 mm[Hg]Critically aysb91-534Dwn [facility] HospitalComment on above:Order Comment: If not done in EDNo: Do not add to previous drawPerformed By: #### 22232 ####[facility] [place] [address], USAPEEP6.0 SNI60XcdclcZmeThe [facility] SystemComment on above:Order Comment: If not done in EDNo: Do not add to previous drawPerformed By: #### 37703 ####[facility] [place] [address], USApH of blood7.35 [pH]Normal 7.35-7.45The [facility] HospitalComment on above:Order Comment: If not done in EDNo: Do not add to previous drawPerformed By: #### 74791 ####[facility] [place] [address], [place] Respiratory rate13 /minNormalThWadsworth-Rittman HospitalComment on above:Order Comment: If not done in EDNo: Do not add to previous drawPerformed By: #### 40610 ####[facility] [place] [address], USATIDAL VOLUME (VT) TP162PbmjtiBvtMercy Health St. Rita's Medical CenterComment on above:Order Comment: If not done in EDNo: Do not add to previous drawPerformed By: #### 64937 ####[facility] [place] [address], USABASIC METABOLIC PANELon 12-19-2016 Calcium7.9 mg/dLLow8.6-10.3The [facility] HospitalComment on above:Performed By: #### 96857, 46796, 02527, 25373, 71410 ####[facility] [place] [address], PCEEsljgsbf543 mmol/L Isnj60-049Lnn [facility] HospitalComment on above:Performed By: #### 40648, 33023, 14823, 47528, 22624 ####[facility] [place] [address], DVNWB477 mmol/UNwscxp30-87Uup [facility] HospitalComment on above:Performed By: #### 23492, 03762, 60568, 24927, 60244 ####[facility] [place] [address], USACreatinine0.99 mg/dLNormal0.70-1.30The [facility] HospitalComment on above:Performed By: #### 20496, 22614, 67821, 21697, 51023 ####[facility] [place] [address], USAeGFR (black)mL/min/{1.73_m2}Normal>60The [facility] HospitalComment on above:Performed By: #### 52753, 98004, 29263, 17584, 79949 ####[facility] [place] [address], USAeGFR (non-black)mL/min/{1.73_m2}Normal>60The [facility] HospitalComment on above:Performed By: #### 23682, 81488, 81118, 62289, 23794 ####[facility] [place] [address], [facility] CENTERGlucose mass puds948 mg/iJQtmb74-733Hpn [facility] HospitalComment on above:Performed By: #### 02880, 61284, 84126, 38955, 55086 ####[facility] [place], [place] [address] [address], [place] Potassium molar conc4.4 mmol/LNormal3.5-5.1The [facility] HospitalComment on above:Performed By: #### 29962, 52593, 47176, 56780, 41862 ####[facility] [facility] [address], [facility] Nvjpzn673 mmol/MIyfoey463-563Mev [facility] HospitalComment on above:Performed By: #### 21634, 61730, 79579, 42143, 28187 ####[facility] [place] [address], USAUrea wcwerdft03 mg/dLNormal7-25The [facility] HospitalComment on above:Performed By: #### 13843, 25564, 38510, 38022, 79645 ####[address] [place] [address], USACalcium9.7 mg/dLNormal8.6-10.3The [facility] HospitalComment on above:Order Comment: No: Do not add to previous drawPerformed By: #### 76159, 92080, 87858, 45293, 21311 ####[facility] [place] [address], [place] Onzazxkp520 mmol/YIyaauw79-928Mvj [facility] HospitalComment on above:Order Comment: No: Do not add to previous drawPerformed By: #### 68704, 06368, 25688, 02187, 47247 ####[facility] [place] [address], FVJVF795 mmol/KTgbzah80-06Kye [facility] HospitalComment on above:Order Comment: No: Do not add to previous draw Performed By: #### 26861, 32317, 04812, 98583, 34031 ####[facility] [place] [address], USACreatinine1.14 mg/dLNormal 0.70-1.30The [facility] HospitalComment on above:Order Comment: No: Do not add to previous drawPerformed By: #### 94409, 34356, 18025, 94207, 62641 ####[facility] [place] [address], USAeGFR (black)mL/min/{1.73_m2}Normal>60The [facility] HospitalComment on above:Order Comment: No: Do not add to previous drawPerformed By: #### 13556, 16840, 95958, 07536, 14413 ####[facility] [place] [address], USAeGFR (non-black)mL/min/{1.73_m2} Normal>60The [facility] HospitalComment on above:Order Comment: No: Do not add to previous drawPerformed By: #### 72100, 85145, 45762, 10711, 87311 ####[facility] [place] [address], USAGlucose mass xgku931 mg/yUAnsx90-122Mqn East [place] City HospitalComment on above:Order Comment: No: Do not add to previous drawPerformed By: #### 99926, 87284, 52380, 01467, 52601 ####[facility] [place] [address], USAPotassium molar conc4.3 mmol/L Normal3.5-5.1The [facility] City HospitalComment on above:Order Comment: No: Do not add to previous drawPerformed By: #### 92793, 19534, 47293, 84725, 54668 ####[facility] [place] [address], PECIcjknq885 mmol/AMclzqb706-929Jca [facility] HospitalComment on above:Order Comment: No: Do not add to previous drawPerformed By: #### 53688, 08767, 42549, 43871, 49999 ####[facility] [place] [place] [address], USAUrea aufxovia60 mg/dLHigh7-25The [facility] [place] [facility] HospitalComment on above:Order Comment: No: Do not add to previous drawPerformed By: #### 65233, 38592, 45507, 32366, 41564 ####[facility] [facility] [address], [facility] CBC COMPLETE BLOOD COUNTon 39-18-4508Jqamdxzdpxk distribution width Auto Ratio (RBC)14.4 %Wajkxv95.5-16.9The [facility] [place] [facility] HospitalComment on above:Performed By: #### 43135, 52297, 70418, 18858, 34432 ####[facility] [place] [address], [facility] CENTERErythrocytes (RBC) 3.62 mill/ri9Vkz4.30-5.90The [facility] [place] [facility] HospitalComment on above:Performed By: #### 39247, 65701, 19172, 91072, 23071 ####[facility] [facility] [address], [facility] CENTERHematocrit (HCT) 36.1 %Low39.0-55.0The [facility] [place] [facility] HospitalComment on above: Performed By: #### 67846, 25835, 45740, 13414, 06197 ####[facility] [facility] [place] [address], [facility] CENTERHemoglobin mass conc (Bld) 12.1 g/dLLow13.9-16.3The [facility] [place] [facility] HospitalComment on above: Performed By: #### 57065, 72073, 29779, 57776, 14255 ####[facility] [facility] [place] [address], HJUWQZ82.3 cvBfxr42.0-32.0The [facility] [place] [facility] HospitalComment on above:Performed By: #### 45617, 33163, 03013, 72959, 12361 ####[facility] [facility] [address], [facility] MUS[facility]EEHC mass conc (RBC)33.3 g/xSCidlyu31.0-36.0The [facility] [place] [facility] HospitalComment on above:Performed By: #### 33609, 39670, 60813, 30877, 26642 ####[facility] [facility] [place] [address], PWILYY60.8 hLEajilm26.0-100.0The [facility] [place] [facility] HospitalComment on above:Performed By: #### 48673, 50977, 21762, 12114, 90323 ####[facility] [facility] [address], [facility] CENTERPLAT FPV261 Thou/on0Axqyug355-494Qcn [facility] [place] [facility] HospitalComment on above:Performed By: #### 64248, 77193, 20314, 67530, 43744 ####[facility] [facility] [address], [facility] WBC (Leukocytes)27.7 Thou/ro2Ywyu8.0-10.0The [facility] Comment on above:Performed By: #### 66206, 32419, 98941, 77452, 10684 ####[facility] [place] [address], [facility] Erythrocyte distribution width Auto Ratio (RBC)14.6 %Jsjepo46.5-16.9The [facility] [place] [facility] HospitalComment on above:Order Comment: No: Do not add to previous drawPerformed By: #### 57295, 28985, 43474, 08829, 55437 ####[facility] [facility] [address], [facility] Erythrocytes (RBC)4.91 mill/jw4Wnrjvz9.30-5.90The [facility] [place] [facility] HospitalComment on above:Order Comment: No: Do not add to previous drawPerformed By: #### 68895, 86222, 56541, 28538, 62724 ####[facility] [facility] [address], [facility] CENTERHematocrit (HCT)50.1 %Normal 39.0-55.0The [facility] [place] [facility] HospitalComment on above:Order Comment: No: Do not add to previous drawPerformed By: #### 23213, 50164, 89388, 83160, 49422 ####[facility] [facility] [place] [address], [facility] CENTERHemoglobin mass conc (Bld)16.2 g/xWFakygr92.9-16.3The [facility] [place] [facility] HospitalComment on above:Order Comment: No: Do not add to previous drawPerformed By: #### 30287, 95545, 49093, 99375, 33228 ####[facility] [place] [address], WOCKBG07.0 pgHigh 24.0-32.0The [facility] [place] [facility] HospitalComment on above:Order Comment: No: Do not add to previous drawPerformed By: #### 19567, 94106, 54142, 14841, 77839 ####[facility] [place] [address], [facility] MUS[facility]EEHC mass conc (RBC)32.2 g/nKOlivgi29.0-36.0The [facility] [place] [facility] HospitalComment on above:Order Comment: No: Do not add to previous draw Performed By: #### 40446, 11798, 30549, 47801, 16048 ####[facility] [facility] [place] [address], YLBYPO026.2 lPJjyw67.0-100.0 The [facility] [place] [facility] HospitalComment on above:Order Comment: No: Do not add to previous drawPerformed By: #### 92607, 39286, 81410, 30437, 77492 ####[facility] [place] [address], [facility] PLAT XOM571 Thou/tj6Dectax847-295Uaf [facility] [place] [facility] HospitalComment on above:Order Comment: No: Do not add to previous drawPerformed By: #### 22145, 47918, 53126, 15825, 80707 ####[facility] [place] [address], [facility] CENTERWBC (Leukocytes)9.9 Thou/lm3Ipiyph9.0-10.0The [facility] [place] [facility] HospitalComment on above:Order Comment: No: Do not add to previous drawPerformed By: #### 25427, 04782, 71639, 92125, 21169 ####[facility] [place] [address], [facility] LIVER BATTERYon 73-47-0282Mamtgiw aminotransferase (ALT)36 U/LNormal7-52The [facility] [place] [facility] HospitalComment on above:Order Comment: No: Do not add to previous drawPerformed By: #### 11799, 96953, 19774, 52917, 90215 ####[facility] [place] [address], [place] Albumin4.1 g/dLNormal3.5-5.7The [facility] [place] [facility] HospitalComment on above:Order Comment: No: Do not add to previous drawPerformed By: #### 23999, 00629, 75318, 20027, 13818 ####[facility] [place] [address], USAALKALINE DVYMDX36 IU/DYmelgl87-988Skk [facility] [place] [facility] HospitalComment on above:Order Comment: No: Do not add to previous drawPerformed By: #### 86134, 35030, 16942, 91113, 54993 ####[facility] [place] [address], USAAspartate aminotransferase (AST)35 U/SLdmcgv57-82Fzg [facility] Comment on above:Order Comment: No: Do not add to previous drawPerformed By: #### 54436, 36177, 75192, 06701, 72786 ####[facility] [place] [address], USABilirubin (direct)0.1 mg/dLNormal 0.0-0.2The [facility] [place] [facility] HospitalComment on above:Order Comment: No: Do not add to previous drawPerformed By: #### 45687, 18881, 21986, 66514, 94503 ####[facility] [place] [address], USABilirubin (total)1.1 mg/dLHigh0.3-1.0The [facility] [place] [facility] HospitalComment on above:Order Comment: No: Do not add to previous drawPerformed By: #### 33646, 55742, 59437, 01168, 32737 ####[facility] [place] [address], USAProtein7.2 g/dLNormal6.0-8.3The [facility] [place] [facility] HospitalComment on above:Order Comment: No: Do not add to previous drawPerformed By: #### 58856, 81482, 49224, 09461, 21933 ####[facility] [place] [address], [facility] MAGNESIUM BLOODon 57-41-7544Wayizrspd4.5 mg/dLNormal1.9-2.7The [facility] [place] [facility] HospitalComment on above:Performed By: #### 23259, 61047, 58256, 30368, 03179 ####[facility] [facility] [place] [address], [facility] CENTEROperative Reporton [id number] ReportMR#: [id number] IUniversH[facility] Pt[facility] Name: Torsten Haywood Room #: [id number] Discharge Date: Birthdate: 1955 OPERATIVE REPORTDATE OF SURGERY: 12/19/2016SURGEON: Torsten Yepez M.D.ASSISTANTS:JH Gerard who assisted with the case as there was no appropriatelyqualified advanced manufacturing vice president available for the surgery and the harvesting ofvein.KASI Wakefield.Mag Serra DANESTHESIOLOGIST:Kae Hall MDANESTHESIA:General.PREOPERATIVE DIAGNOSES:1. Coronary artery occlusive disease.2. Cardiomyopathy.POSTOPERATIVE DIAGNOSES:1. Coronary artery occlusive disease.2. Cardiomyopathy.PROCEDURE: Urgent coronary artery bypass grafting x5 with a left internalmammary artery to the LAD, a sequential left radial artery graft to thediagonal and the ramus intermedius, right radialartery graft to the LE5jwknjoxym vein graft to the PDA, harvesting of [...] anastomosed to the targetvessels in end-to-side or lggj-ew-fxgnxlmwqcp using running 7-0 Prolenesutures. The heel and [...] 12/19/2016/02:29 P/Torsten Yepez M.D.Date Trans: 12/19/2016 04:17 P/mmoDN_JN:[id number]: Torsten Yepez M.D. [facility] [place] [address]NoThe [facility] PERFUSION BLOOD PANELon [id number] EXCESS-3.0 mmol/LLow-2.0-3.0The [facility] [place] [facility] HospitalComment on above:Performed By: #### 64958, 32419, 44641, 41201, 76168 ####[facility] [place] [address], MEMFD398.1 vcPkNyl30.0-45.0The [facility] [place] [facility] HospitalComment on above:Performed By: #### 90778, 32879, 64143, 61484, 68075 ####[facility] [place] [address], [facility] CENTERGlucose mass ezbw655 mg/qUCrcr10-709Vwj [facility] [place] [facility] HospitalComment on above:Performed By: #### 83265, 92506, 91369, 01291, 52448 ####[facility] [facility] [place] [address], [facility] Hematocrit (HCT)36 %Eua32-01Vnx [facility] [place] [facility] HospitalComment on above:Performed By: #### 66630, 39577, 90010, 74419, 50978 ####[facility] [place] [address], [facility] CENTERHemoglobin mass conc (Bld)12.2 g/sTNrutrn27.0-17.0The [facility] [place] [facility] HospitalComment on above:Performed By: #### 97239, 70499, 42698, 77277, 98715 ####[facility] [place] [address], USAIONIZED CALCIUM 1.18 mmol/LNormal1.12-1.32The [facility] [place] [facility] HospitalComment on above:Performed By: #### 71689, 17923, 57851, 76358, 08473 ####[facility] [place] [address], USAOxygen in arterial blood80.0 mm[Hg]Hiaxex36.0-105.0The [facility] [place] [facility] HospitalComment on above:Performed By: #### 38192, 09366, 00791, 42107, 93766 ####[facility] [place] [address], USApH of blood7.41 [pH]Normal7.35-7.45The [facility] [place] [facility] HospitalComment on above: Performed By: #### 02576, 14814, 48427, 62502, 22773 ####[facility] [place] [address], USAPotassium molar conc4.4 mmol/LNormal3.5-4.9The [facility] [place] [facility] HospitalComment on above: Performed By: #### 52364, 19170, 42741, 52362, 95864 ####[place] [address] [place] [address], ACIWckfmr594 mmol/LNormal 138-146The [facility] [place] [facility] HospitalComment on above:Performed By: #### 17472, 99332, 51878, 00502, 14745 ####[facility] [place] [address], USABASE EXCESS-1.0 mmol/LNormal -2.0-3.0The [facility] [place] [facility] HospitalComment on above:Performed By: #### 59864, 81882, 40281, 90617, 81802 ####[place] [address] [place] [address], THGFS088.3 foGgDnfxkh34.0-45.0The [facility] [place] [facility] HospitalComment on above:Performed By: #### 63592, 87967, 42695, 69947, 24431 ####[facility] [place] [address], [facility] CENTERGlucose mass gxwr189 mg/rSUitv71-077Yts [facility] [place] [facility] HospitalComment on above:Performed By: #### 75699, 61911, 75140, 42493, 40570 ####[facility] [facility] [place] [address], [facility] CENTERHematocrit (HCT)33 %Oyr81-07Dzb [facility] Comment on above:Performed By: #### 20305, 37094, 49669, 79693, 04607 ####[address] [place] [address], [facility] Hemoglobin mass conc (Bld)11.2 g/dLLow12.0-17.0The [facility] [place] [facility] HospitalComment on above:Performed By: #### 52885, 14215, 35910, 65622, 95332 ####[place] [address] [facility].[address] IONIZED CALCIUM1.25 mmol/LNormal1.12-1.32The [facility] Comment on above:Performed By: #### 71088, 42763, 02911, 31212, 66765 ####[address] Oxygen in arterial blood61.0 mm[Hg]Low80.0-105.0The [facility] [place] [facility] HospitalComment on above:Performed By: #### 63081, 02659, 13760, 39870, 90227 ####[address] [place] [address], [facility] pH of blood7.35 [pH]Normal7.35-7.45The [facility] [place] [facility] Comment on above:Performed By: #### 77770, 13259, 08314, 94390, 09830 ####[facility] [facility] [address], [facility] Potassium molar conc4.3 mmol/LNormal3.5-4.9The [facility] [place] [facility] HospitalComment on above:Performed By: #### 27385, 91770, 64943, 31851, 36306 ####[place] [address] [facility] [place] [address], [facility] Edukxg101 mmol/XMkc043-947Vuv [facility] [place] [facility] HospitalComment on above:Performed By: #### 25183, 15614, 78871, 78755, 15415 ####[address] [place] [address], [facility]ENTERBASE EXCESS2.0 mmol/LNormal-2.0-3.0The [facility] [place] [facility] HospitalComment on above: Performed By: #### 33634, 79680, 58741, 93748, 94713 ####[address] [place] [address], BXZSG081.8 mmHgNormal 35.0-45.0The [facility] [place] [facility] HospitalComment on above:Performed By: #### 19377, 41197, 85634, 76158, 37951 ####[address] [place] [address], [facility] CENTERGlucose mass djjr086 mg/dLHigh 70-105The [facility] [place] [facility] HospitalComment on above:Performed By: #### 55251, 58276, 94570, 75738, 63638 ####[address] [place] [address], [facility] CENTERHematocrit (HCT)38 %Hpowhw48-51Nek [facility] [place] [facility] HospitalComment on above:Performed By: #### 42863, 67712, 77004, 82692, 81131 ####[address] [place] [address], [facility] CENTERHemoglobin mass conc (Bld)12.9 g/sVPnmzfe84.0-17.0The [facility] [place] [facility] HospitalComment on above:Performed By: #### 66155, 04884, 08871, 77731, 82721 ####[facility] [place] [address], [facility]ICAL CENTERIONIZED CALCIUM1.10 mmol/LLow1.12-1.32The [facility] [place] [facility] HospitalComment on above:Performed By: #### 49308, 94445, 76375, 47690, 12661 ####[facility] [place] [address], [facility] CENTEROxygen in arterial .0 mm[Hg]High80.0-105.0The [facility] [place] [facility] HospitalComment on above:Performed By: #### 12906, 67034, 27655, 80653, 07614 ####[facility] [place] [address], [facility] CENTERpH of blood7.44 [pH]Normal7.35-7.45The [facility] [place] [facility] HospitalComment on above:Performed By: #### 29380, 38662, 79371, 53349, 88284 ####[place] [address] [facility] [place] [address], [facility] Potassium molar conc5.0 mmol/LHigh3.5-4.9The [facility] Comment on above:Performed By: #### 75315, 20132, 54596, 20996, 97282 ####[facility] [place] [address], [facility] Rjjoaz651 mmol/FVcn149-014Twm [facility] [place] [facility] HospitalComment on above:Performed By: #### 91987, 64167, 51356, 05214, 83565 ####[place] [address] [place] [address], [facility]ENTERBASE EXCESS1.0 mmol/LNormal-2.0-3.0The [facility] [place] [facility] HospitalComment on above: Performed By: #### 88617, 39213, 74929, 69210, 79812 ####[facility] [place] [address], YUDRI713.1 mmHgNormal 35.0-45.0The [facility] [place] [facility] HospitalComment on above:Performed By: #### 28868, 87066, 87904, 16124, 63522 ####[facility] [place] [address] [place] [address], [facility] CENTERGlucose mass aoai499 mg/dLHigh 70-105The [facility] [place] [facility] HospitalComment on above:Performed By: #### 19291, 10352, 79512, 45995, 42337 ####[address] [place] [address], [facility] CENTERHematocrit (HCT)37 %Lhm69-47Lgb [facility] [place] [facility] HospitalComment on above:Performed By: #### 56195, 29945, 68911, 85616, 20681 ####[facility] [place] [address] [place] [address], [facility] CENTERHemoglobin mass conc (Bld)12.6 g/tIIupkxq50.0-17.0The [facility] [place] [facility] HospitalComment on above:Performed By: #### 60217, 49218, 96237, 95374, 35313 ####[facility] [place], [place] [address]E[place] [address], USAIONIZED CALCIUM1.11 mmol/LLow1.12-1.32The [facility] [place] [facility] HospitalComment on above:Performed By: #### 84865, 78547, 64545, 95992, 98483 ####[facility] [place] [address] [place] [address], USAOxygen in arterial firon431.0 mm[Hg]High80.0-105.0The [facility] CenterComment on above:Performed By: #### 21916, 88008, 09710, 73591, 95140 ####[facility] [facility] [address], [facility] CENTERpH of blood7.43 [pH]Normal7.35-7.45The [facility] [place] [facility] HospitalComment on above:Performed By: #### 23358, 00685, 73849, 78317, 47450 ####[facility] [facility] [place] [address], [facility] Potassium molar conc5.1 mmol/LHigh3.5-4.9The [facility] Comment on above:Performed By: #### 37863, 26723, 74578, 67291, 32850 ####[place] [address] [facility] [place] [address], [facility] Eqnyci391 mmol/IZmy982-388Xqp [facility] HospitalComment on above:Performed By: #### 39730, 89031, 37725, 76074, 92855 ####[address] [place] [address], [facility]ENTERBASE EXCESS3.0 mmol/LNormal-2.0-3.0The [facility] [place] [facility] HospitalComment on above: Performed By: #### 55194, 53952, 36593, 59436, 94126 ####[address] [place] [address], GHYSN089.8 mmHgNormal 35.0-45.0The [facility] [place] [facility] HospitalComment on above:Performed By: #### 09075, 98737, 92096, 29479, 53357 ####[address] [place] [address], [facility] CENTERGlucose mass caxq890 mg/dLHigh 70-105The [facility] [place] [facility] HospitalComment on above:Performed By: #### 64118, 60527, 34336, 88600, 98365 ####[address] [place] [address], [facility] CENTERHematocrit (HCT)38 %Anvsdd09-63Ixu [facility] HospitalComment on above:Performed By: #### 06079, 82329, 28081, 02815, 32442 ####[address] [place] [address], [facility] CENTERHemoglobin mass conc (Bld)12.9 g/aHCuzukc74.0-17.0The [facility] HospitalComment on above:Performed By: #### 28469, 23130, 49172, 04732, 82528 ####[address] [place] [address], [facility] CENTERIONIZED CALCIUM1.07 mmol/LLow1.12-1.32The [facility] HospitalComment on above:Performed By: #### 10988, 86014, 77171, 43824, 03146 ####[address] [place] [address], [facility] CENTEROxygen in arterial uhpks354.0 mm[Hg]High80.0-105.0The [facility] HospitalComment on above:Performed By: #### 89722, 32018, 39826, 07568, 48038 ####[address] [place] [address], [facility] CENTERpH of blood7.44 [pH]Normal7.35-7.45The [facility] HospitalComment on above:Performed By: #### 10953, 58178, 06739, 51051, 16210 ####[address] [place] [address], [facility] Potassium molar conc5.3 mmol/LHigh3.5-4.9The [facility] Comment on above:Performed By: #### 39199, 55704, 79646, 18741, 80358 ####[place] [address] [place] [address], [facility] Fyodxu054 mmol/ZVpo605-708Xep [facility] HospitalComment on above:Performed By: #### 81957, 56610, 77040, 07247, 64196 ####[facility] [place] [address], [facility]ENTERBASE EXCESS3.0 mmol/LNormal-2.0-3.0The [facility] [place] [facility] HospitalComment on above: Performed By: #### 56081, 36524, 12174, 50836, 77391 ####[facility] [place] [address].[place] [address], NUZOO573.8 mmHgNormal 35.0-45.0The [facility] HospitalComment on above:Performed By: #### 70310, 22487, 61120, 10023, 42152 ####[address] [place] [address], [facility] CENTERGlucose mass pwna939 mg/dLHigh 70-105The [facility] HospitalComment on above:Performed By: #### 55501, 06202, 64070, 86462, 75323 ####[address] [place] [address], [facility] CENTERHematocrit (HCT)39 %Pnyfyt10-07Tgv [facility] HospitalComment on above:Performed By: #### 82168, 47547, 48925, 86395, 22863 ####[address] [place] [address], [facility] CENTERHemoglobin mass conc (Bld)13.3 g/iWGrotio00.0-17.0The [facility] HospitalComment on above:Performed By: #### 78391, 54202, 58353, 65339, 61425 ####[address] [place] [address], [facility] CENTERIONIZED CALCIUM1.11 mmol/LLow1.12-1.32The [facility] HospitalComment on above:Performed By: #### 92013, 44487, 23007, 87591, 54656 ####[facility] [place] [address], [facility] CENTEROxygen in arterial bdyqs996.0 mm[Hg]High80.0-105.0The [facility] HospitalComment on above:Performed By: #### 66361, 87093, 15766, 00823, 42258 ####[facility] [place] [address], [facility] CENTERpH of blood7.46 [pH]High7.35-7.45The [facility] HospitalComment on above:Performed By: #### 99050, 39319, 12858, 54347, 77249 ####[facility] [place] [address], [facility] Potassium molar conc5.2 mmol/LHigh3.5-4.9The [facility] Comment on above:Performed By: #### 81722, 90830, 45084, 01290, 66914 ####[facility] [place] [address], [facility] Otxcfw555 mmol/MBql302-848Bjd [facility] HospitalComment on above:Performed By: #### 08907, 66235, 08694, 95428, 37043 ####[address] [place] [address], [facility] CENTERBASE EXCESS3.0 mmol/LNormal-2.0-3.0The [facility] [place] [facility] HospitalComment on above: Performed By: #### 91301, 44787, 76541, 32251, 45332 ####[facility] [place] [address], CIUMN664.6 mmHgNormal 35.0-45.0The [facility] HospitalComment on above:Performed By: #### 44712, 29517, 83678, 09505, 17067 ####[facility] [place] [address], [facility] CENTERGlucose mass apun919 mg/dLHigh 70-105The [facility] [place] [facility] HospitalComment on above:Performed By: #### 86632, 72347, 24203, 72240, 72064 ####[facility] [place] [address], [facility] CENTERHematocrit (HCT)38 %[id number] [facility] HospitalComment on above:Performed By: #### 65844, 71577, 97231, 20595, 34278 ####[facility] [place] [address], [facility] CENTERHemoglobin mass conc (Bld)12.9 g/zKRgiahx70.0-17.0The [facility] [place] [facility] HospitalComment on above:Performed By: #### 21345, 63172, 01509, 28991, 50938 ####[facility] [place] [address], [facility] CENTERIONIZED CALCIUM1.06 mmol/LLow1.12-1.32The [facility] HospitalComment on above:Performed By: #### 61090, 54106, 43596, 45638, 80824 ####[facility] [facility] [place] [address], [facility] CENTEROxygen in arterial yqfmd176.0 mm[Hg]High80.0-105.0The [facility] HospitalComment on above:Performed By: #### 90873, 23488, 24279, 99477, 42757 ####[facility] [place] [address], USApH of blood7.42 [pH]Normal7.35-7.45The [facility] HospitalComment on above:Performed By: #### 66425, 39648, 90987, 16624, 00631 ####[facility] [place] [address], [place] Potassium molar conc4.9 mmol/LNormal3.5-4.9The [facility] HospitalComment on above:Performed By: #### 56121, 87640, 80471, 89148, 79706 ####[address] [place] [address], [facility] Fydevc812 mmol/VBcc009-233Fqt [facility] HospitalComment on above:Performed By: #### 89568, 80961, 60693, 32114, 65830 ####[address] [place] [address], [facility] CENTERBASE EXCESS-1.0 mmol/LNormal-2.0-3.0The [facility] HospitalComment on above: Performed By: #### 94213, 71787, 80951, 37706, 78188 ####[address] [place] [address], XJDWQ901.8 dfEwRblh22.0-45.0 The [facility] HospitalComment on above:Performed By: #### 18275, 68405, 48132, 26236, 37562 ####[address] [place] [address], [facility] CENTERGlucose mass acpa858 mg/tKUgub59-339Nue [facility] HospitalComment on above:Performed By: #### 96767, 06775, 31576, 82477, 90920 ####[address] [place] [address], [facility] CENTERHematocrit (HCT)45 %Hllmee18-61Sgw [facility] HospitalComment on above:Performed By: #### 83740, 72464, 95963, 89773, 49273 ####[address] [place] [address], [facility] CENTERHemoglobin mass conc (Bld)15.3 g/uCCqbeoz01.0-17.0The [facility] [place] [facility] HospitalComment on above:Performed By: #### 81254, 51402, 58563, 70728, 30748 ####[facility] [place] [address], [facility] CENTERIONIZED CALCIUM1.21 mmol/LNormal1.12-1.32The [facility] [place] [facility] HospitalComment on above:Performed By: #### 83485, 05135, 09808, 21699, 79610 ####[facility] [place] [address], [facility] CENTEROxygen in arterial gxydj015.0 mm[Hg]High80.0-105.0The [facility] [place] [facility] HospitalComment on above:Performed By: #### 97864, 29552, 61204, 72637, 78013 ####[facility] [place] [address], [facility] CENTERpH of blood7.32 [pH]Low7.35-7.45The [facility] [place] [facility] HospitalComment on above:Performed By: #### 98640, 26693, 85818, 50741, 54598 ####[place] [address] [facility] [place] [address], [facility] Potassium molar conc4.4 mmol/LNormal3.5-4.9The [facility] [place] [facility] HospitalComment on above:Performed By: #### 15593, 33699, 29434, 69277, 55062 ####[address] [place] [address], [facility] Szdvcd757 mmol/PBtv800-958Quh [facility] HospitalComment on above:Performed By: #### 92186, 84906, 97218, 81288, 72985 ####[place] [address] [place] [address], [facility]ENTERBASE EXCESS1.0 mmol/LNormal-2.0-3.0The [facility] [place] [facility] HospitalComment on above: Performed By: #### 44057, 88013, 78216, 59742, 09208 ####[facility] [place] [address], WDBZK176.1 mmHgNormal 35.0-45.0The [facility] HospitalComment on above:Performed By: #### 79155, 80109, 73598, 70959, 82188 ####[place] [address] [place] [address], [facility] CENTERGlucose mass gfyc657 mg/dLHigh 70-105The [facility] [place] [facility] HospitalComment on above:Performed By: #### 44660, 52947, 02098, 58159, 91537 ####[facility] [place] [address], [facility] CENTERHematocrit (HCT)45 %Gbbito27-91Pqa [facility] [place] [facility] HospitalComment on above:Performed By: #### 54592, 68961, 24721, 30219, 24585 ####[place] [address] [place] [address], [facility] CENTERHemoglobin mass conc (Bld)15.3 g/lWBynunz86.0-17.0The [facility] [place] [facility] HospitalComment on above:Performed By: #### 45543, 79604, 69085, 23775, 76006 ####[place] [address] [place] [address], USAIONIZED CALCIUM1.19 mmol/LNormal1.12-1.32The [facility] HospitalComment on above:Performed By: #### 08072, 35776, 11581, 27040, 42887 ####[place] [address] [place] [address], USAOxygen in arterial blood97.0 mm[Hg]Whmzag18.0-105.0The [facility] HospitalComment on above:Performed By: #### 72000, 57045, 84034, 22047, 17878 ####[place] [address] [place] [address], USApH of blood7.39 [pH]Normal7.35-7.45The [facility] [place] [facility] HospitalComment on above:Performed By: #### 45423, 47471, 78588, 14730, 73624 ####[facility] [place] [address], USAPotassium molar conc4.3 mmol/LNormal3.5-4.9The [facility] HospitalComment on above:Performed By: #### 37555, 43805, 50279, 66938, 54846 ####[facility] [place] [address], SWGJyapdn191 mmol/ECgh932-910Liq [facility] Comment on above:Performed By: #### 16530, 44962, 49620, 08170, 26158 ####[facility] [place] [address], [place] POC GLUCOSE LABon 67-76-6634Rcdious mass jdsb078 mg/zVFyvd32-557Cgo [facility] [place] [facility] HospitalComment on above:Performed By: #### 01881 ####[facility] [place] [address], USAGlucose mass axav955 mg/kIIqja65-841Xmf [facility] HospitalComment on above: Performed By: #### 99439 ####[facility] [place] [address], USAGlucose mass pres769 mg/vRPcsh02-078Jkv [facility] HospitalComment on above:Performed By: #### 24820 ####[facility] [place] [address], USAGlucose mass conc 144 mg/sXMmzj16-169Utg [facility] [place] [facility] HospitalComment on above: Performed By: #### 00104 ####[facility] [address] [address] [place] [address], USAGlucose mass elou165 mg/pAJres64-403Jbr [facility] [place] [facility] HospitalComment on above:Performed By: #### 76049 ####[facility] [facility] [address], [facility] CENTERGlucose mass conc 153 mg/lALfjk84-347Wis [facility] HospitalComment on above: Performed By: #### 68009 ####[facility] [place] [address].[place] [address], [facility] CENTERGlucose mass buoj876 mg/iDYove14-223Pdg [facility] HospitalComment on above:Performed By: #### 38243 ####[address] [address], [facility] CENTERGlucose mass conc 113 mg/bJIbwp34-978Dkg [facility] HospitalComment on above: Performed By: #### 02767, 59024, 49092, 32909, 31910 ####[facility] [place] [address], [facility] CENTERPROTHROMBIN TIMEon 72-99-4533CRB Coag RelTime (PPP)1.07 {INR}Normal0.91-1.16The [facility] [place] [facility] HospitalComment on above:Order Comment: No: Do not add [...] ACTION, CLINICALEFFECTIVENESS, AND OPTIMAL THERAPEU TIC RANGE. [id number];108:231S-246S.Performed By: #### 41070, 52064, 38954, 56981, 44544 ####[facility] [place] [address], USAProthrombin time (PT) Coag time (PPP)13.9 jQslsge13.3-14.8The [facility] [place] [facility] HospitalComment on above:Order Comment: No: Do not add to previous drawResult Comment: ALL RESULTS MUST BE INTERPRETED WITH RESPECT TO BLOOD DRAWING ARTIFACTOR DILUTION ERROR OF ANTICOAGULANT AT THE TIME OF SAMPLING.Performed By: #### 90886, 64910, 08330, 24673, 65010 ####[facility] [place] [address], USAURINALYSISon 44-63-9907Aoouwblxp (total)NegativeNormalNEGATIVEThe [facility] HospitalComment on above:Order Comment: No: Do not add to previous draw Performed By: #### 54966, 76956, 33087, 40754, 65877 ####[facility] [place] [address], USABLOODNegativeNormal NEGATIVEThe [facility] HospitalComment on above:Order Comment: No: Do not add to previous drawPerformed By: #### 71018, 71022, 64282, 40584, 10060 ####[facility] [place] [address], USAGlucose mass concNegativeNormalNEGATIVEThe [facility] HospitalComment on above:Order Comment: No: Do not add to previous draw Performed By: #### 69561, 77163, 36248, 45981, 58648 ####[facility] [place] [address], USAKETONENegativeNormal NEGATIVEThe [facility] HospitalComment on above:Order Comment: No: Do not add to previous drawPerformed By: #### 63536, 31132, 88441, 87881, 39842 ####[facility] [place] [address], USALEUK ESTERNegativeNormalNEGATIVEThe [facility] HospitalComment on above:Order Comment: No: Do not add to previous drawPerformed By: #### 62482, 53468, 42395, 62209, 26276 ####[facility] [place] [address], USAMUCUS THREADSFEWAbnormalNONE SEEN The [facility] HospitalComment on above:Order Comment: No: Do not add to previous drawPerformed By: #### 90236, 92464, 68149, 07038, 79262 ####[facility] [place] [address], [place] pH of blood5.0 [pH]Normal5.0-8.0The [facility] HospitalComment on above:Order Comment: No: Do not add to previous drawPerformed By: #### 30989, 82640, 17786, 85312, 78440 ####[facility] [place] [address], USAProteinNegativeNormalNEGATIVEThe [facility] HospitalComment on above:Order Comment: No: Do not add to previous drawPerformed By: #### 52723, 41852, 90313, 90881, 00150 ####[facility] [place] [address], USASPEC GRAV1.023High 1.015-1.020The [facility] HospitalComment on above:Order Comment: No: Do not add to previous drawPerformed By: #### 43873, 36326, 08492, 35971, 60709 ####[facility] [place] [address], USAUrine, appearanceCLEARNormalCLEARThe [facility] HospitalComment on above:Order Comment: No: Do not add to previous drawPerformed By: #### 18599, 57773, 25728, 84851, 93807 ####[facility] [place] [address], USAUrine, colorYELLOWNormalYELLOWThe [facility] HospitalComment on above:Order Comment: No: Do not add to previous drawPerformed By: #### 65724, 80885, 07793, 18034, 20865 ####[facility] [facility] [address], [facility] Urine, nitrite presenceNegativeNormalNEGATIVEThe [facility] HospitalComment on above:Order Comment: No: Do not add to previous drawPerformed By: #### 77689, 97623, 03655, 01230, 13270 ####[facility] [place] [address], [facility] CENTERWBC UANONE SEENAbnormal0-0The [facility] HospitalComment on above:Order Comment: No: Do not add to previous drawPerformed By: #### 43475, 37866, 96422, 34563, 58486 ####[facility] [place] [address], [facility] BASIC METABOLIC PANELon 92-13-2385Kigdpcc3.3 mg/dLNormal8.6-10.3The [facility] HospitalComment on above:Order Comment: << ON ADMISSION If not done in ED>>No: Do not add to previous drawPerformed By: #### 39140, 03514, 54319, 90350, 76677 ####[facility] [place] [address], WOGCbsnkkzr65 mmol/DUojyxc35-851Lae [facility] HospitalComment on above:Order Comment: << ON ADMISSION If not done in ED>>No: Do not add to previous drawPerformed By: #### 77411, 56563, 92501, 74667, 83955 ####[facility] [facility] [place] [address], FXJYQ557 mmol/SFlylfx34-84Web [facility] Comment on above:Order Comment: << ON ADMISSION If not done in ED>>No: Do not add to previous drawPerformed By: #### 19944, 73908, 41966, 90943, 72575 ####[facility] [facility] [address], [facility] Creatinine1.30 mg/dLNormal0.70-1.30The [facility] Comment on above:Order Comment: << ON ADMISSION If not done in ED>>No: Do not add to previous drawPerformed By: #### 52351, 28485, 12541, 36747, 93506 ####[facility] [facility].[address] eGFR (black)mL/min/{1.73_m2}Normal>60The [facility] Comment on above:Order Comment: << ON ADMISSION If not done in ED>>No: Do not add to previous drawPerformed By: #### 70052, 48339, 65564, 96233, 97384 ####[facility] [facility].[address] eGFR (non-black)57 ml/min/1.73sq mAbnormal>60The [facility] HospitalComment on above:Order Comment: << ON ADMISSION If not done in ED>>No: Do not add to previous drawPerformed By: #### 71818, 51474, 62994, 61548, 94111 ####[facility] [facility] [place] [address], [facility] Glucose mass conc99 mg/bGGgflqk03-172Qvd [facility] Comment on above:Order Comment: << ON ADMISSION If not done in ED>>No: Do not add to previous drawPerformed By: #### 36649, 45227, 78561, 34131, 38114 ####[facility] [facility] Potassium molar conc4.5 mmol/LNormal3.5-5.1The [facility] HospitalComment on above:Order Comment: << ON ADMISSION If not done in ED>>No: Do not add to previous drawPerformed By: #### 73815, 46458, 68851, 75434, 07782 ####[facility] [facility].[address] Xkrbtb250 mmol/OVyxomd119-130Mtj [facility] HospitalComment on above:Order Comment: << ON ADMISSION If not done in ED>>No: Do not add to previous drawPerformed By: #### 83761, 14951, 81792, 66393, 38950 ####[facility] [facility]ERE.[address] StreetUrea xlfkfwyq01 mg/dLHigh7-25The [facility] HospitalComment on above:Order Comment: << ON ADMISSION If not done in ED>>No: Do not add to previous draw Performed By: #### 24145, 16341, 53586, 01038, 18264 ####[facility] [facility] [address], [facility] CENTERCBC W/DIFFon 12-18-2016 Basophils Auto #/vol (Bld)0.7 %Normal0.0-2.0The [facility] HospitalComment on above:Order Comment: << ON ADMISSION If not done in ED>>No: Do not add to previous drawPerformed By: #### 62154, 14370, 51808, 96163, 34340 ####[facility] [facility] [place] [address], [facility] Eosinophils/100 leukocytes4.6 %Normal0.0-5.0The [facility] HospitalComment on above:Order Comment: << ON ADMISSION If not done in ED>>No: Do not add to previous drawPerformed By: #### 21702, 54523, 06669, 73971, 44554 ####[facility] [place] [address], [place] Erythrocyte distribution width Auto Ratio (RBC)14.8 %Nkhwld12.5-16.9The [facility] HospitalComment on above:Order Comment: << ON ADMISSION If not done in ED>>No: Do not add to previous drawPerformed By: #### 82897, 61060, 80715, 08918, 10855 ####[facility] [place] [address], [facility] CENTERErythrocytes (RBC)4.86 mill/jo3Fslhxv 4.30-5.90The [facility] HospitalComment on above:Order Comment: << ON ADMISSION If not done in ED>>No: Do not add to previous drawPerformed By: #### 39974, 92697, 21054, 58524, 10224 ####[facility] [place] [address], [facility] CENTERHematocrit (HCT)49.4 %Normal 39.0-55.0The [facility] HospitalComment on above:Order Comment: << ON ADMISSION If not done in ED>>No: Do not add to previous drawPerformed By: #### 59263, 80079, 45644, 88177, 59888 ####[facility] [place] [address], [facility] CENTERHemoglobin mass conc (Bld)16.0 g/oPGbevrx34.9-16.3The [facility] HospitalComment on above:Order Comment: << ON ADMISSION If not done in ED>>No: Do not add to previous draw Performed By: #### 97178, 50471, 95914, 79497, 65275 ####[facility] [place] [address], [facility] CENTERLymphocytes/100 leukocytes 27.1 %Uofeom66.0-40.0The [facility] HospitalComment on above: Order Comment: << ON ADMISSION If not done in ED>>No: Do not add to previous drawPerformed By: #### 83932, 58312, 63222, 31578, 35502 ####[facility] [place] [address], OLAJJM67.0 pgHigh 24.0-32.0The [facility] HospitalComment on above:Order Comment: << ON ADMISSION If not done in ED>>No: Do not add to previous drawPerformed By: #### 14263, 30598, 39040, 63833, 67039 ####[facility] [place] [address], [facility] MUSKOGEEHC mass conc (RBC)32.5 g/dL Beuhua17.0-36.0The [facility] [place] [facility] HospitalComment on above:Order Comment: << ON ADMISSION If not done in ED>>No: Do not add to previous draw Performed By: #### 60128, 26472, 60079, 15173, 82801 ####[facility] [place] [address], ZKXXPY484.6 hDEnxo67.0-100.0 The [facility] HospitalComment on above:Order Comment: << ON ADMISSION If not done in ED>>No: Do not add to previous drawPerformed By: #### 19317, 92382, 40221, 57797, 37926 ####[facility] [place] [address], [facility]ENTERMETHODNormal RBC MorphologyNoGalion Community Hospitale [facility] HospitalComment on above:Order Comment: << ON ADMISSION If not done in ED>>No: Do not add to previous drawPerformed By: #### 80379, 45806, 81684, 76074, 04189 ####[facility] [place] [address], JMYKVATX96.7 %High2-8The [facility] HospitalComment on above:Order Comment: << ON ADMISSION If not done in ED>>No: Do not add to previous drawPerformed By: #### 67167, 27825, 89574, 76425, 31860 ####[facility] [facility] [address], [facility] CENTERNeutrophils/100 aybmomwsrq37.9 %Sjb23-56Orn [facility] HospitalComment on above:Order Comment: << ON ADMISSION If not done in ED>>No: Do not add to previous drawPerformed By: #### 81065, 22896, 32265, 12953, 51795 ####[facility] [place] [address], [facility] CENTERPLAT WIZ131 Thou/mr8Snemoj191-530Cmx [facility] HospitalComment on above:Order Comment: << ON ADMISSION If not done in ED>>No: Do not add to previous drawPerformed By: #### 62131, 96920, 88343, 24969, 12182 ####[facility] [place] [address], [facility] WBC (Leukocytes)9.8 Thou/cw8Kbeawz0.0-10.0The [facility] HospitalComment on above:Order Comment: << ON ADMISSION If not done in ED>>No: Do not add to previous drawPerformed By: #### 34134, 56279, 31684, 98944, 03613 ####[facility] [place] [address], [facility] MAGNESIUM BLOODon 55-13-8960Bcvbbvmsp3.3 mg/dLNormal1.9-2.7The [facility] HospitalComment on above:Order Comment: << ON ADMISSION If not done in ED>>No: Do not add to previous drawPerformed By: #### 06744, 03484, 28030, 06173, 99358 ####[facility] [place] [address], USATYPE AND SCREENon 68-87-2486AKE INTERPRETATIONBNormalThe [facility] HospitalComment on above:Performed By: #### 61018, 06513, 11242, 80678, 19067 ####[facility] [place] [address], USAANTIBODY SCREENNegativeNoThe MetroHealth SystemComment on above:Performed By: #### 33076, 14093, 51560, 43093, 03686 ####[facility] [place] [address], USARH INTERPRETATIONPositivePeoples Hospital Comment on above:Performed By: #### 84503, 84689, 24772, 64551, 62355 ####[facility] [place] [address], [facility] *MRSA/MSSA CULTUREon 12-17-2016*MRSA/MSSA CULTUREClinical Report: (D) Specimen: NASAL SWAB Collected: 12/17/2016 10:30 Status: Final Last Updated: 12/18/2016 09:17 ISO (Final) No Methicillin Resistant Staphylococcus aureus Isolated ISO (Final) Methicillin Sensitive Staphylococcus aureus IsolatedNoThe [facility]Health SystemComment on above:Performed By: #### 88880, 40197, 52587, 20879, 44142 ####[facility] [place] [address], USABASIC METABOLIC PANELon 33-30-2349Pbjyhen0.8 mg/dL Normal8.6-10.3The [facility] HospitalComment on above:Order Comment: << ON ADMISSION If not done in ED>>No: Do not add to previous draw Performed By: #### 71764, 35592, 17269, 48040, 43389 ####[facility] [place] [address], LBDHcxjwkud091 mmol/LNormal 98-107The [facility] HospitalComment on above:Order Comment: << ON ADMISSION If not done in ED>>No: Do not add to previous drawPerformed By: #### 42295, 34322, 18846, 47491, 53362 ####[facility] [place] [address], ISQJT953 mmol/UHsen80-47Erf [facility] HospitalComment on above:Order Comment: << ON ADMISSION If not done in ED>>No: Do not add to previous drawPerformed By: #### 49774, 15652, 94596, 66600, 02072 ####[facility] [place] [address], USACreatinine1.10 mg/dLNormal0.70-1.30The [facility] HospitalComment on above:Order Comment: << ON ADMISSION If not done in ED>>No: Do not add to previous drawPerformed By: #### 59377, 09848, 98178, 26132, 07999 ####[facility] [place] [address], USAeGFR (black)mL/min/{1.73_m2}Normal>60The [facility] HospitalComment on above:Order Comment: << ON ADMISSION If not done in ED>>No: Do not add to previous drawPerformed By: #### 40186, 86496, 97754, 54123, 10499 ####[facility] [place] [address], USAeGFR (non-black)mL/min/{1.73_m2}Normal>60The [facility] HospitalComment on above:Order Comment: << ON ADMISSION If not done in ED>>No: Do not add to previous drawPerformed By: #### 40356, 19515, 89906, 50384, 93119 ####[facility] [place] [address], USAGlucose mass conc93 mg/iMJdtiae86-780Hzt [facility] HospitalComment on above:Order Comment: << ON ADMISSION If not done in ED>>No: Do not add to previous drawPerformed By: #### 62708, 08321, 19831, 13285, 36757 ####[facility] [place] [address], USAPotassium molar conc4.9 mmol/LNormal3.5-5.1 The [facility] HospitalComment on above:Order Comment: << ON ADMISSION If not done in ED>>No: Do not add to previous drawPerformed By: #### 33780, 59186, 83908, 84975, 20058 ####[facility] [place] [address], LPFInmjhs132 mmol/LVqbhnv265-538Mvv [facility] HospitalComment on above:Order Comment: << ON ADMISSION If not done in ED>>No: Do not add to previous drawPerformed By: #### 03852, 21327, 76022, 53638, 25430 ####[facility] [place] [address], USAUrea zxejlpcn83 mg/dLHigh7-25The [facility] HospitalComment on above:Order Comment: << ON ADMISSION If not done in ED>>No: Do not add to previous drawPerformed By: #### 31692, 20115, 71715, 68664, 15113 ####[facility] [place] [address], [facility] CENTERCB W/DIFFon 91-37-5859Naelzcqvr Auto #/vol (Bld)0.8 %Normal0.0-2.0 [facility] HospitalComment on above:Order Comment: << ON ADMISSION If not done in ED>>No: Do not add to previous drawPerformed By: #### [id number], 06508, 94919, 23162, 15141 ####[facility] [place] [address], USAEosinophils/100 leukocytes5.6 %High0.0-5.0The [facility] HospitalComment on above:Order Comment: << ON ADMISSION If not done in ED>>No: Do not add to previous drawPerformed By: #### [id number], 00516, 98469, 24142, 90772 ####[facility] [place] [address], [facility] MEDICAL CENTERErythrocyte distribution width Auto Ratio (RBC)14.7 %Xekaky47.5-16.9The [facility] HospitalComment on above:Order Comment: << ON ADMISSION If not done in ED>>No: Do not add to previous drawPerformed By: #### 69671, 53329, 97967, 74902, 55592 ####[facility] [facility] [place] [address], USAErythrocytes (RBC)4.83 mill/tg9Jegjbq4.30-5.90The [facility] HospitalComment on above:Order Comment: << ON ADMISSION If not done in ED>>No: Do not add to previous drawPerformed By: #### 20696, 05325, 28135, 74747, 60791 ####[facility] [facility] [place] [address], [facility] CENTERHematocrit (HCT)49.0 %Sewpvf92.0-55.0The [facility] HospitalComment on above:Order Comment: << ON ADMISSION If not done in ED>>No: Do not add to previous drawPerformed By: #### 52104, 07675, 86317, 83088, 56689 ####[facility] [facility] [place] [address], [facility] CENTERHemoglobin mass conc (Bld)15.9 g/eUAaoyfb20.9-16.3The [facility] Comment on above:Order Comment: << ON ADMISSION If not done in ED>>No: Do not add to previous drawPerformed By: #### 33338, 91581, 74752, 45150, 63952 ####[facility] [place] [address], [facility] Lymphocytes/100 .3 %Ufuqir05.0-40.0The [facility] HospitalComment on above:Order Comment: << ON ADMISSION If not done in ED>>No: Do not add to previous drawPerformed By: #### 19836, 41117, 01890, 44147, 75512 ####[facility] [place] [address], [facility] MCH32.9 yqDeux93.0-32.0The [facility] HospitalComment on above: Order Comment: << ON ADMISSION If not done in ED>>No: Do not add to previous drawPerformed By: #### 80190, 97503, 12582, 38501, 00306 ####[facility] [place] [address], [facility] CENTERMCHC mass conc (RBC)32.4 g/rMOrhnst62.0-36.0The [facility] HospitalComment on above:Order Comment: << ON ADMISSION If not done in ED>>No: Do not add to previous drawPerformed By: #### 90804, 30703, 14110, 83674, 27869 ####[facility] [place] [address], PHVJDC533.4 fLHigh 80.0-100.0The [facility] HospitalComment on above:Order Comment: << ON ADMISSION If not done in ED>>No: Do not add to previous drawPerformed By: #### 42639, 25985, 88497, 87198, 44541 ####[facility] [place] [address], [facility]ENTERMETHODNormal RBC MorphologyNormal The [facility] HospitalComment on above:Order Comment: << ON ADMISSION If not done in ED>>No: Do not add to previous drawPerformed By: #### 59172, 71655, 99843, 39460, 62545 ####[facility] [place] [address], XGVPXWDY83.4 %High2-8The [facility] HospitalComment on above:Order Comment: << ON ADMISSION If not done in ED>>No: Do not add to previous drawPerformed By: #### 42864, 21598, 90087, 29388, 48988 ####[facility] [place] [address], [facility] CENTERNeutrophils/100 pmaqavtxby42.9 %Aez71-57Tur [facility] HospitalComment on above:Order Comment: << ON ADMISSION If not done in ED>>No: Do not add to previous drawPerformed By: #### 93990, 73975, 86915, 78028, 66157 ####[facility] [place] [address], [facility] CENTERPLAT LZQ606 Thou/ue6Svlmlw640-008Edy [facility] HospitalComment on above:Order Comment: << ON ADMISSION If not done in ED>>No: Do not add to previous drawPerformed By: #### 55843, 85770, 61208, 04988, 02973 ####[facility] [place] [address], [facility] WBC (Leukocytes)10.2 Thou/sz5Zwfa5.0-10.0[facility] Comment on above:Order Comment: << ON ADMISSION If not done in ED>>No: Do not add to previous drawPerformed By: #### 60579, 83631, 99430, 41073, 31175 ####[facility] [place] [address], [facility] Cardiovascular Lab Reporton [id number] Lab ReportUnChillicothe Hospital Patient Name: Yobany [facility] MR #: [id number] Physician: Michel Burkett,Department of M.D.Medicine Service Date: 12/16/2016Division of Birthdate: 1955Cardiology Room #: 3AB [id number] [facility]ovascularMethod[facility]er[address] [place], [place] [address]Fudas Fax Cardiovascular Laboratory ReportCLINICAL PRESENTATION: Mr. Haywood [...] 12/16/2016/04:25 P/Michel Burkett M.D.Date Trans: 12/17/2016 01:29 A/[place]and[place]_JN:[id number]: Esperanza Eaton M.D. [facility]...do Not Send [address] [facility] [address]QonbdgOefPeoples HospitalMAGNESIUM BLOODon 05-73-7736Dkimkqmhm4.4 mg/dLNormal1.9-2.7 The [facility] HospitalComment on above:Order Comment: << ON ADMISSION If not done in ED>>No: Do not add to previous drawPerformed By: #### 13533, 62668, 28856, 65406, 76738 ####[facility] [place] [address], [facility] CENTERBASI METABOLIC PANELon 36-39-8607Vydhral3.5 mg/dLNormal8.6-10.3The [facility] [place] [facility] HospitalComment on above:Order Comment: << ON ADMISSION If not done in ED>>No: Do not add to previous draw Performed By: #### 03411, 79654, 27206, 79518, 80427 ####[facility] [place] [address], HSRHqwaloqv390 mmol/LNormal 98-107The [facility] HospitalComment on above:Order Comment: << ON ADMISSION If not done in ED>>No: Do not add to previous drawPerformed By: #### 61411, 60035, 12946, 40442, 09404 ####[facility] [place] [address], JWOEQ283 mmol/LIretzz51-22Ypi [facility] HospitalComment on above:Order Comment: << ON ADMISSION If not done in ED>>No: Do not add to previous drawPerformed By: #### 37421, 50020, 59265, 30993, 74978 ####[facility] [place] [address], USACreatinine0.98 mg/dLNormal0.70-1.30The [facility] HospitalComment on above:Order Comment: << ON ADMISSION If not done in ED>>No: Do not add to previous drawPerformed By: #### 76037, 00029, 05686, 13380, 12270 ####[facility] [place] [address], USAeGFR (black)mL/min/{1.73_m2}Normal>60The [facility] HospitalComment on above:Order Comment: << ON ADMISSION If not done in ED>>No: Do not add to previous drawPerformed By: #### 34624, 09992, 23265, 97903, 21048 ####[facility] [place] [address], USAeGFR (non-black)mL/min/{1.73_m2}Normal>60The [facility] HospitalComment on above:Order Comment: << ON ADMISSION If not done in ED>>No: Do not add to previous drawPerformed By: #### 60922, 73901, 24093, 48454, 52287 ####[facility] [place] [address], USAGlucose mass kqrl417 mg/kZWradjc67-786Jyr [facility] HospitalComment on above:Order Comment: << ON ADMISSION If not done in ED>>No: Do not add to previous drawPerformed By: #### 22873, 62992, 95163, 01465, 30903 ####[facility] [place] [address], USAPotassium molar conc4.2 mmol/LNormal3.5-5.1 The [facility] HospitalComment on above:Order Comment: << ON ADMISSION If not done in ED>>No: Do not add to previous drawPerformed By: #### 68039, 38114, 48083, 22015, 90626 ####[facility] [place] [address], KSYIqqkkp047 mmol/ABueirc952-077Gdi [facility] HospitalComment on above:Order Comment: << ON ADMISSION If not done in ED>>No: Do not add to previous drawPerformed By: #### 32393, 67926, 12306, 55865, 38377 ####[facility] [place] [address], USAUrea vigcjlap21 mg/dLHigh7-25The [facility] HospitalComment on above:Order Comment: << ON ADMISSION If not done in ED>>No: Do not add to previous drawPerformed By: #### 61083, 34916, 21955, 02262, 15686 ####[facility] [place] [address], [facility] CENTERCBC W/DIFFon 65-14-3537Sdcdqcqep Auto #/vol (Bld)0.5 %Normal0.0-2.0 The [facility] HospitalComment on above:Performed By: #### 06293, 13708, 04331, 68307, 54249 ####[facility] [place] [address], [facility] CENTEREosinophils/100 leukocytes3.8 %Normal0.0-5.0 The [facility] HospitalComment on above:Performed By: #### 74892, 63244, 54977, 39007, 36358 ####[address] [place] [address], [facility] CENTERErythrocyte distribution width Auto Ratio (RBC)14.5 %Srpwmn80.5-16.9The [facility] HospitalComment on above:Performed By: #### 78888, 20231, 78071, 18442, 22136 ####[facility] [place] [address].[place] [address], [facility] CENTERErythrocytes (RBC) 4.70 mill/xj0Fddrnw8.30-5.90The [facility] HospitalComment on above:Performed By: #### 50296, 62859, 15227, 40436, 24572 ####[address] [address], [facility] CENTERHematocrit (HCT) 47.4 %Zfzuol29.0-55.0The [facility] HospitalComment on above: Performed By: #### 29463, 05785, 98078, 38334, 22644 ####[place] [address], [facility] CENTERHemoglobin mass conc (Bld) 15.5 g/yGCkkxep66.9-16.3The [facility] HospitalComment on above: Performed By: #### 77843, 22040, 81116, 32611, 84272 ####[facility] [place] [address], [facility] CENTERLymphocytes/100 leukocytes 21.5 %Wyhhff23.0-40.0The [facility] HospitalComment on above: Performed By: #### 72790, 64145, 09715, 82776, 37204 ####[facility] [place] [address], DQUFDF08.0 guRrra23.0-32.0The [facility] HospitalComment on above:Performed By: #### 22206, 97008, 23292, 41442, 29644 ####[facility] [facility] [address], [facility] MUSKOGEEHC mass conc (RBC)32.6 g/fNEwbffq17.0-36.0The [facility] HospitalComment on above:Performed By: #### 76884, 21511, 93214, 46116, 56393 ####[facility] [place] [address], WHPWXX627.0 uSDckv39.0-100.0The [facility] HospitalComment on above:Performed By: #### 66896, 62845, 12657, 39551, 44767 ####[facility] [facility] [address], [facility]ENTERMETHODNormal RBC MorphologyNormalThe [facility] HospitalComment on above:Result Comment: Automated differential performedNormal RBC MorphologyPerformed By: #### 83248, 74669, 31279, 51092, 67619 ####[facility] [place] [address], [place] MONOS16.8 %High2-8The [facility] HospitalComment on above: Performed By: #### 68290, 79444, 45451, 93750, 94545 ####[facility] [place] [address], USANeutrophils/100 leukocytes 57.4 %Urlibl49-56Zsu [facility] HospitalComment on above: Performed By: #### 93705, 97382, 76304, 95255, 59141 ####[facility] [place] [address], USAPLAT KQM395 Thou/xf5Vrvscs 100-400The [facility] HospitalComment on above:Performed By: #### 83383, 02846, 90478, 88232, 71459 ####[facility] [place] [address], USAWBC (Leukocytes)10.7 Thou/nc1Krcq 4.0-10.0The [facility] HospitalComment on above:Performed By: #### 57394, 69623, 40780, 82632, 57570 ####[facility] [place] [address], USAMAGNESIUM BLOODon 12-16-2016 Magnesium2.3 mg/dLNormal1.9-2.7The [facility] HospitalComment on above:Order Comment: << ON ADMISSION If not done in ED>>No: Do not add to previous drawPerformed By: #### 72110, 74991, 23091, 14147, 62338 ####[facility] [place] [address], USABASIC METABOLIC PANELon 23-46-8711Kefcabv2.6 mg/dLNormal8.6-10.3The [facility] HospitalComment on above:Order Comment: << On admission If not done in ED>>No: Do not add to previous drawPerformed By: #### 92858, 84753, 73113, 93832, 10397 ####[facility] [place] [address], VSVEiarncje84 mmol/QQxrudu32-230Kfk [facility] HospitalComment on above:Order Comment: << On admission If not done in ED>>No: Do not add to previous drawPerformed By: #### 69729, 90074, 93767, 20895, 96302 ####[facility] [place] [address], [place] CO236 mmol/ZMlkk46-84Njw [facility] HospitalComment on above: Order Comment: << On admission If not done in ED>>No: Do not add to previous drawPerformed By: #### 54046, 90159, 85558, 33016, 21678 ####[facility] [place] [address], USACreatinine1.23 mg/dLNormal0.70-1.30The [facility] HospitalComment on above: Order Comment: << On admission If not done in ED>>No: Do not add to previous drawPerformed By: #### 30501, 37317, 73591, 14958, 39411 ####[facility] [place] [address], USAeGFR (black) mL/min/{1.73_m2}Normal>60The [facility] HospitalComment on above:Order Comment: << On admission If not done in ED>>No: Do not add to previous drawPerformed By: #### 02474, 89325, 88848, 75023, 13646 ####[facility] [place] [address], USAeGFR (non-black)60 ml/min/1.73sq mAbnormal>60The [facility] Comment on above:Order Comment: << On admission If not done in ED>>No: Do not add to previous drawPerformed By: #### 34781, 69621, 38443, 63084, 41861 ####[facility] [place] [address], [place] Glucose mass conc99 mg/lFWmovjz70-831Upa [facility] Comment on above:Order Comment: << On admission If not done in ED>>No: Do not add to previous drawPerformed By: #### 17315, 81425, 48568, 04089, 31706 ####[facility] [place] [address], [facility] Potassium molar conc3.7 mmol/LNormal3.5-5.1The [facility] HospitalComment on above:Order Comment: << On admission If not done in ED>>No: Do not add to previous drawPerformed By: #### 24810, 22994, 95487, 18563, 67057 ####[facility] [facility] [address], [facility] Bfaxnm801 mmol/MNdvqib234-983App [facility] HospitalComment on above:Order Comment: << On admission If not done in ED>>No: Do not add to previous drawPerformed By: #### 81967, 33982, 47733, 15907, 70310 ####[facility] StreetUrea mg/dLHigh7-25The [facility] HospitalComment on above:Order Comment: << On admission If not done in ED>>No: Do not add to previous draw Performed By: #### 55695, 84273, 40908, 14170, 35520 ####[facility] [facility] [place] [address], [facility]ENTERCB W/DIFFon 12-15-2016 Basophils Auto #/vol (Bld)0.2 %Normal0.0-2.0The [facility] HospitalComment on above:Order Comment: << ON ADMISSION If not done in ED>>No: Do not add to previous drawPerformed By: #### 41010, 73665, 25097, 15983, 19909 ####[facility] [place] [address], [facility] Eosinophils/100 leukocytes5.6 %High0.0-5.0The [facility] HospitalComment on above:Order Comment: << ON ADMISSION If not done in ED>>No: Do not add to previous drawPerformed By: #### 88133, 77685, 07056, 30972, 30126 ####[facility] [facility] [place] [address], [facility] Erythrocyte distribution width Auto Ratio (RBC)14.3 %Ibnkhp15.5-16.9The [facility] HospitalComment on above:Order Comment: << ON ADMISSION If not done in ED>>No: Do not add to previous drawPerformed By: #### 16173, 29518, 96774, 58667, 47663 ####[facility] [facility] [place] [address], [facility] CENTERErythrocytes (RBC)4.73 mill/io8Zjkovc 4.30-5.90The [facility] HospitalComment on above:Order Comment: << ON ADMISSION If not done in ED>>No: Do not add to previous drawPerformed By: #### 76612, 66074, 83149, 83688, 28614 ####[facility] [facility] [place] [address], [facility] CENTERHematocrit (HCT)47.9 %Normal 39.0-55.0The [facility] HospitalComment on above:Order Comment: << ON ADMISSION If not done in ED>>No: Do not add to previous drawPerformed By: #### 48480, 63963, 58835, 48317, 75656 ####[facility] [place] [address], [facility] CENTERHemoglobin mass conc (Bld)15.6 g/pVNkwots42.9-16.3The [facility] HospitalComment on above:Order Comment: << ON ADMISSION If not done in ED>>No: Do not add to previous draw Performed By: #### 99228, 16662, 52943, 96710, 41585 ####[facility] [place] [address], [facility] CENTERLymphocytes/100 leukocytes 17.7 %Low20.0-40.0The [facility] HospitalComment on above:Order Comment: << ON ADMISSION If not done in ED>>No: Do not add to previous draw Performed By: #### 40420, 57702, 36542, 87367, 47594 ####[facility] [place] [address], HRIMGY43.9 ogXdvn01.0-32.0The [facility] HospitalComment on above:Order Comment: << ON ADMISSION If not done in ED>>No: Do not add to previous drawPerformed By: #### 74090, 02479, 32939, 43197, 48422 ####[facility] [place] [address], [facility] MUS[facility]EEHC mass conc (RBC)32.5 g/aQFperue83.0-36.0 The [facility] HospitalComment on above:Order Comment: << ON ADMISSION If not done in ED>>No: Do not add to previous drawPerformed By: #### 52759, 32805, 17359, 85771, 35449 ####[facility] [place] [address], HNNQTQ360.2 uYHgcg95.0-100.0The [facility] HospitalComment on above:Order Comment: << ON ADMISSION If not done in ED>>No: Do not add to previous drawPerformed By: #### 67602, 36136, 97317, 99664, 20929 ####[facility] [place] [address], [facility] HealthComment on above:Order Comment: << ON ADMISSION If not done in ED>>No: Do not add to previous drawResult Comment: Automated differential performedNormal RBC MorphologyPerformed By: #### 05317, 92134, 73247, 50994, 04296 ####[facility] [place] [address], KGYJIUWL48.1 %High2-8 The [facility] HospitalComment on above:Order Comment: << ON ADMISSION If not done in ED>>No: Do not add to previous drawPerformed By: #### 98410, 89525, 70146, 61860, 34321 ####[facility] [place] [address], USANeutrophils/100 uayuryhtlv96.4 %Wgonxk54-72 The [facility] HospitalComment on above:Order Comment: << ON ADMISSION If not done in ED>>No: Do not add to previous drawPerformed By: #### 99866, 50178, 51305, 11326, 26427 ####[facility] [place] [address], USAPLAT EIC587 Thou/fd6Uuxjlm487-938Rja [facility] HospitalComment on above:Order Comment: << ON ADMISSION If not done in ED>>No: Do not add to previous drawPerformed By: #### 59942, 76884, 34070, 04873, 51861 ####[facility] [place] [address], USAWBC (Leukocytes)12.8 Thou/wz8Umbj5.0-10.0The [facility] HospitalComment on above:Order Comment: << ON ADMISSION If not done in ED>>No: Do not add to previous drawPerformed By: #### 35460, 36133, 04397, 81648, 74539 ####[facility] [place] [address], USAMAGNESIUM BLOODon 49-95-3413Srxpejroy1.5 mg/dLNormal1.9-2.7The [facility] HospitalComment on above:Order Comment: << On admission If not done in ED>>No: Do not add to previous draw Performed By: #### 60226, 91873, 89502, 76672, 44332 ####[facility] [place] [address], USABASIC METABOLIC PANELon 29-64-4375Nitnfmm0.6 mg/dLNormal8.6-10.3The [facility] Comment on above:Order Comment: << On admission If not done in ED>>No: Do not add to previous drawPerformed By: #### 39268, 38157, 83266, 59757, 86155 ####[facility] [place] [address], [place] Xujhzusd99 mmol/ZXsj56-409Xwe [facility] HospitalComment on above:Order Comment: << On admission If not done in ED>>No: Do not add to previous drawPerformed By: #### 77174, 53455, 78129, 04510, 89894 ####[facility] [place] [address], HCAAL871 mmol/L Ceoe45-12Fxh [facility] HospitalComment on above:Order Comment: << On admission If not done in ED>>No: Do not add to previous drawPerformed By: #### 57407, 45454, 29388, 89746, 77240 ####[facility] [place] [address], USACreatinine1.35 mg/dLHigh0.70-1.30 The [facility] HospitalComment on above:Order Comment: << On admission If not done in ED>>No: Do not add to previous drawPerformed By: #### 89525, 47860, 50394, 15517, 94681 ####[facility] [place] [address], USAeGFR (black)mL/min/{1.73_m2}Normal>60The [facility] HospitalComment on above:Order Comment: << On admission If not done in ED>>No: Do not add to previous drawPerformed By: #### 12036, 17476, 36287, 71227, 88587 ####[facility] [place] [address], USAeGFR (non-black)54 ml/min/1.73sq mAbnormal>60 The [facility] HospitalComment on above:Order Comment: << On admission If not done in ED>>No: Do not add to previous drawPerformed By: #### 55328, 62903, 15681, 77141, 26773 ####[facility] [place] [address], USAGlucose mass conc99 mg/oXXajkac47-154Kpz [facility] HospitalComment on above:Order Comment: << On admission If not done in ED>>No: Do not add to previous drawPerformed By: #### 29898, 37534, 74444, 32546, 53302 ####[facility] [place] [address], USAPotassium molar conc4.0 mmol/LNormal3.5-5.1 The [facility] HospitalComment on above:Order Comment: << On admission If not done in ED>>No: Do not add to previous drawPerformed By: #### 74319, 23092, 03792, 57333, 71467 ####[facility] [place] [address], APAUzkftx928 mmol/KJzsnii317-229Jew [facility] HospitalComment on above:Order Comment: << On admission If not done in ED>>No: Do not add to previous drawPerformed By: #### 28809, 07578, 71172, 67042, 21213 ####[facility] [place] [address], USAUrea emzcggze80 mg/dLHigh7-25The [facility] HospitalComment on above:Order Comment: << On admission If not done in ED>>No: Do not add to previous drawPerformed By: #### 84433, 18968, 82407, 42533, 44266 ####[facility] [facility] [place] [address], [facility]ENTERCB W/DIFFon 51-69-8908Vklxfckos Auto #/vol (Bld)0.4 %Normal0.0-2.0 The [facility] HospitalComment on above:Order Comment: << On admission If not done in ED>>No: Do not add to previous drawPerformed By: #### 68973, 20965, 89001, 34130, 05587 ####[facility] [place] [address], [facility] CENTEREosinophils/100 leukocytes1.9 %Normal0.0-5.0 The [facility] HospitalComment on above:Order Comment: << On admission If not done in ED>>No: Do not add to previous drawPerformed By: #### 11270, 10890, 97933, 40496, 49238 ####[facility] [facility] [place] [address], [facility] CENTERErythrocyte distribution width Auto Ratio (RBC)15.0 %Kouawr24.5-16.9The [facility] HospitalComment on above:Order Comment: << On admission If not done in ED>>No: Do not add to previous drawPerformed By: #### [id number], 29715, 00994, 07685, 29822 ####[facility] [facility] [place] [address], [facility]ENTERErythrocytes (RBC)4.72 mill/sd3Bffmpk8.30-5.90The [facility] HospitalComment on above:Order Comment: << On admission If not done in ED>>No: Do not add to previous drawPerformed By: #### 74105, 28330, 44689, 85142, 20612 ####[facility] [facility] [facility] [place] [address], [facility] CENTERHematocrit (HCT)47.6 %Tuplbd65.0-55.0The [facility] HospitalComment on above:Order Comment: << On admission If not done in ED>>No: Do not add to previous drawPerformed By: #### 10537, 60979, 57572, 95207, 49402 ####[facility] [place] [address], [facility] CENTERHemoglobin mass conc (Bld)15.6 g/gWAgwltz38.9-16.3The [facility] Comment on above:Order Comment: << On admission If not done in ED>>No: Do not add to previous drawPerformed By: #### 41338, 71139, 44730, 53315, 66600 ####[facility] [place] [address], [facility] Lymphocytes/100 ikclbbjwwu53.8 %Low20.0-40.0The [facility] HospitalComment on above:Order Comment: << On admission If not done in ED>>No: Do not add to previous drawPerformed By: #### 75801, 50044, 79419, 30768, 50772 ####[facility] [place] [address], [facility] MCH33.1 aiUwoq33.0-32.0The [facility] HospitalComment on above: Order Comment: << On admission If not done in ED>>No: Do not add to previous drawPerformed By: #### 06002, 88550, 91332, 88655, 31569 ####[facility] [place] [address], [facility] CENTERMCHC mass conc (RBC)32.8 g/zEJsydir66.0-36.0The [facility] HospitalComment on above:Order Comment: << On admission If not done in ED>>No: Do not add to previous drawPerformed By: #### 83449, 11976, 07543, 05962, 99854 ####[facility] [place] [address], COBXQM796.9 fLHigh 80.0-100.0The [facility] HospitalComment on above:Order Comment: << On admission If not done in ED>>No: Do not add to previous drawPerformed By: #### 42033, 94095, 21502, 07592, 95247 ####[facility] [facility] [place] [address], USAMETHODNormalThe [facility] HospitalComment on above:Order Comment: << On admission If not done in ED>>No: Do not add to previous drawResult Comment: Automated differential performedNormal RBC MorphologyPerformed By: #### 93920, 44877, 73221, 74543, 82791 ####[facility] [facility] [place] [address], BQWHCNFJ38.9 %High2-8The [facility] HospitalComment on above:Order Comment: << On admission If not done in ED>>No: Do not add to previous drawPerformed By: #### 69646, 51904, 97296, 44600, 36538 ####[facility] [place] [address], USANeutrophils/100 floogppzag58.0 %Uoeojj78-27Uce [facility] HospitalComment on above:Order Comment: << On admission If not done in ED>>No: Do not add to previous drawPerformed By: #### 61806, 97966, 10790, 42927, 56930 ####[facility] [place] [address], USAPLAT CZE646 Thou/to9Mpqubv024-940Lre [facility] HospitalComment on above: Order Comment: << On admission If not done in ED>>No: Do not add to previous drawPerformed By: #### 70462, 59342, 55379, 10673, 53595 ####[facility] [place] [address], [facility] CENTERWBC (Leukocytes) 12.1 Thou/bw6Qnhi9.0-10.0The [facility] HospitalComment on above:Order Comment: << On admission If not done in ED>>No: Do not add to previous drawPerformed By: #### 83203, 84243, 43688, 89919, 57178 ####[facility] [place] [address], USAMAGNESIUM BLOOD on 94-33-5982Qwdczaozu9.2 mg/dLNormal1.9-2.7The [facility] HospitalComment on above:Order Comment: << On admission If not done in ED>>No: Do not add to previous drawPerformed By: #### 49164, 33714, 57239, 63984, 43612 ####[facility] [place] [address], [place] BASIC METABOLIC PANELon 09-35-1154Ymzxyex3.4 mg/dLNormal8.6-10.3The [facility] HospitalComment on above:Order Comment: << On admission If not done in ED>>No: Do not add to previous drawPerformed By: #### 19619, 60560, 60239, 52392, 79644 ####[facility] [place] [address], MJKEpbcvnnx46 mmol/CBll62-789Afo [facility] HospitalComment on above:Order Comment: << On admission If not done in ED>>No: Do not add to previous drawPerformed By: #### 00064, 44059, 76856, 62180, 05905 ####[facility] [place] [address], HWKRN653 mmol/RUlka33-48Iob [facility] HospitalComment on above:Order Comment: << On admission If not done in ED>>No: Do not add to previous drawPerformed By: #### 01427, 86625, 67568, 77279, 04051 ####[facility] [place] [address], USACreatinine1.31 mg/dLHigh0.70-1.30The [facility] HospitalComment on above:Order Comment: << On admission If not done in ED>>No: Do not add to previous draw Performed By: #### 05906, 56015, 88741, 88416, 50939 ####[facility] [place] [address], USAeGFR (black) mL/min/{1.73_m2}Normal>60The [facility] HospitalComment on above:Order Comment: << On admission If not done in ED>>No: Do not add to previous drawPerformed By: #### 79327, 85360, 50868, 46675, 72581 ####[facility] [place] [address], USAeGFR (non-black)56 ml/min/1.73sq mAbnormal>60The [facility] Comment on above:Order Comment: << On admission If not done in ED>>No: Do not add to previous drawPerformed By: #### 63387, 87442, 31397, 89777, 74935 ####[facility] [place] [address], [place] Glucose mass sqgc002 mg/sVIlap84-832Tum [facility] Comment on above:Order Comment: << On admission If not done in ED>>No: Do not add to previous drawPerformed By: #### 19586, 65518, 27827, 72061, 12195 ####[facility] [place] [address], [place] Potassium molar conc3.9 mmol/LNormal3.5-5.1The [facility] [place] [facility] HospitalComment on above:Order Comment: << On admission If not done in ED>>No: Do not add to previous drawPerformed By: #### 65486, 58056, 33787, 99725, 41670 ####[facility] [place] [address], [place] Mqohhl510 mmol/OCiynhi199-179Vpf [facility] HospitalComment on above:Order Comment: << On admission If not done in ED>>No: Do not add to previous drawPerformed By: #### 03925, 45390, 86775, 06621, 58621 ####[facility] [place] [address], USAUrea ltiqwrvh27 mg/dLHigh7-25The [facility] HospitalComment on above:Order Comment: << On admission If not done in ED>>No: Do not add to previous draw Performed By: #### 80294, 39740, 08582, 38260, 30113 ####[facility] [place] [address], QBQQunynnur14 mmol/IDfg18-651 The [facility] [place] [facility] HospitalComment on above:Order Comment: << On admission If not done in ED>>No: Do not add to previous drawPerformed By: #### 01358, 82902, 91325, 45469, 84683 ####[facility] [place] [address], OYIHR416 mmol/GWfnw83-88Drh [facility] HospitalComment on above:Order Comment: << On admission If not done in ED>>No: Do not add to previous drawPerformed By: #### 63138, 87851, 23778, 82022, 35175 ####[facility] [place] [address], USACreatinine0.95 mg/dLNormal0.70-1.30The [facility] HospitalComment on above:Order Comment: << On admission If not done in ED>>No: Do not add to previous drawPerformed By: #### 65635, 13078, 10205, 54179, 27700 ####[facility] [facility] [place] [address], [facility] eGFR (non-black)mL/min/{1.73_m2}Normal>60The [facility] Comment on above:Order Comment: << On admission If not done in ED>>No: Do not add to previous drawPerformed By: #### 96821, 59031, 10149, 52919, 29526 ####[facility] [place] [address], [facility] Glucose mass wbdh406 mg/aEFtzz90-126Rhb [facility] Comment on above:Order Comment: << On admission If not done in ED>>No: Do not add to previous drawPerformed By: #### 38741, 00619, 53617, 51079, 90675 ####[facility] [facility] [place] [address], [facility] Potassium molar conc3.6 mmol/LNormal3.5-5.1The [facility] HospitalComment on above:Order Comment: << On admission If not done in ED>>No: Do not add to previous drawPerformed By: #### 15266, 94607, 12666, 85633, 84381 ####[facility] [facility] [place] [address], [facility] Nczjnh667 mmol/MWzjnww682-640Gbm [facility] HospitalComment on above:Order Comment: << On admission If not done in ED>>No: Do not add to previous drawPerformed By: #### 45591, 68493, 57573, 49402, 26031 ####[facility] [place] [place] [address], [facility] CENTERUrea kvhqxaxn94 mg/dLNormal7-25The [facility] HospitalComment on above:Order Comment: << On admission If not done in ED>>No: Do not add to previous draw Performed By: #### 78538, 80506, 12759, 26268, 11296 ####[facility] [place] [address], [facility] CENTERCBC W/DIFFon 12-13-2016 Basophils Auto #/vol (Bld)0.5 %Normal0.0-2.0The [facility] HospitalComment on above:Order Comment: No: Do not add to previous drawPerformed By: #### 87714 ####[facility] [place] [address], [facility] CENTEREosinophils/100 leukocytes1.5 %Normal0.0-5.0The [facility] HospitalComment on above:Order Comment: No: Do not add to previous drawPerformed By: #### 23060 ####[address] [place] [address], [facility] CENTERErythrocyte distribution width Auto Ratio (RBC)14.6 %Ojoohs34.5-16.9The [facility] HospitalComment on above:Order Comment: No: Do not add to previous drawPerformed By: #### 34120 ####[facility] [place] [address].[place] [address], [facility] Erythrocytes (RBC)4.51 mill/ht1Pydqib3.30-5.90The [facility] HospitalComment on above:Order Comment: No: Do not add to previous drawPerformed By: #### 01446 ####[facility] [place] [address].[place] [address], [facility] CENTERHematocrit (HCT)45.3 %Njzxll79.0-55.0The [facility] HospitalComment on above:Order Comment: No: Do not add to previous draw Performed By: #### 23425 ####[address] [place] [address], [facility] CENTERHemoglobin mass conc (Bld)15.0 g/lLIedvvu81.9-16.3The [facility] HospitalComment on above:Order Comment: No: Do not add to previous drawPerformed By: #### 02614 ####[facility] [facility] [place] [address], USALymphocytes/100 exsjpzidoc98.3 % Low20.0-40.0The [facility] HospitalComment on above:Order Comment: No: Do not add to previous drawPerformed By: #### 20368 ####[facility] [facility] [place] [address], TDKNRU93.3 pgHigh 24.0-32.0The [facility] HospitalComment on above:Order Comment: No: Do not add to previous drawPerformed By: #### 37090 ####[facility] [facility] [place] [address], [facility] MUSKOGEEHC mass conc (RBC)33.1 g/nAHmwgbx96.0-36.0The [facility] [place] [facility] HospitalComment on above:Order Comment: No: Do not add to previous drawPerformed By: #### 19626 ####[facility] [facility] [place] [address], LKLLWB166.6 fLHigh 80.0-100.0The [facility] HospitalComment on above:Order Comment: No: Do not add to previous drawPerformed By: #### 49737 ####[facility] [place] [address].[place] [address], [facility] HOSPITALODNormalThWadsworth-Rittman HospitalComment on above:Order Comment: No: Do not add to previous drawResult Comment: Automated differential performedNormal RBC MorphologyPerformed By: #### 33692 ####[facility] [facility] [place] [address], ZCDQYPJF52.8 %High2-8The [facility] HospitalComment on above:Order Comment: No: Do not add to previous draw Performed By: #### 20683 ####[facility] [place] [address], USANeutrophils/100 iyhgzuvmmf69.9 %Icmtxr66-23Pzp [facility] HospitalComment on above:Order Comment: No: Do not add to previous drawPerformed By: #### 62378 ####[facility] [place] [address], USAPLAT TBE721 Thou/ss5Gmtovh260-105 The [facility] HospitalComment on above:Order Comment: No: Do not add to previous drawPerformed By: #### 51362 ####[facility] [place] [address], [facility] CENTERWBC (Leukocytes)11.3 Thou/nc8Mgcb3.0-10.0The [facility] HospitalComment on above: Order Comment: No: Do not add to previous drawPerformed By: #### 79684 ####[facility] [place] [address], [place] COOXIMETRYon 55-58-8354PDLB2 %NormalThe [facility] Comment on above:Performed By: #### 52918, 08221, 07016, 85933, 56818 ####[facility] [place] [address], [place] METHB0 %NormalThe [facility] HospitalComment on above:Performed By: #### 57675, 39392, 31896, 09219, 63175 ####[facility] [place] [address], [facility] CENTERO2 lcaybeedew17.8 %Bdfcxg73.0-80.0 The [facility] HospitalComment on above:Performed By: #### 16144, 31243, 34579, 99521, 01659 ####[facility] [place] [address], GOOLNF40.7 g/lXHrbkul86.9-16.3The [facility] HospitalComment on above:Performed By: #### 90590, 12802, 62492, 65591, 49591 ####[facility] [place] [address], USACardiovascular Lab Reporton 81-82-3206Vxhsjkgxhnlpdm Lab Report [id number] Physician: Francisco Schaefer M.D.Medicine Service Date: 12/12/2016Division of Birthdate: 1955Cardiology Room #: 3AB [id number] CardiovascularServicesMemorial [facility] [place], [place] [address]Vzqvg Fax Cardiovascular Laboratory ReportINDICATION:Torsten Haywood is a 60-year-old man, who was admitted with advancedsystolic heart failure. He wasreferred for right heart cardiaccatheterization.PROCEDURES:1. Access into right internal jugular vein under ultrasound guidance.2. Right heart catheterization.3. Placement of a PROFESSIONAL WRESTLER [place]scar catheter.METHOD:Procedure was explained to the patient with risks and benefits. He signedinformed consent. 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 [facility] neck area was prepped and draped in usual fashion. Access into theright internal jugular vein was obtained using ultrasound guidance andmicropuncture technique, a 6-Tuvaluan x 11 cm sheath was placed. A 6- FrenchBerman catheter was used for right heart catheterization with measurementof pressures and calculation of cardiac output using the estimated Fickmethod. Correa catheter was removed. The access sheath was upsized to a9- Tuvaluan x 11 cm introducer sheath, which was [...] 12/12/2016/04:52 P/Francisco Tena M.D.Date Trans: 12/13/2016 06:58 A/[place]_JN:[id number]: Esperanza Eaton M.D. E R Physican...do Not Send [address] [facility] [address]RckmgxUmhThe MetroHealth SystemLIPID PROFILEon 28-66-5775Izxcalzuwfq113 mg/dLNormal 120-200The [facility] [place] [facility] HospitalComment on above:Result Comment: CHOLESTEROL REFERENCE RANGE:20 YEARS AND OLDER CARDIOVASCULAR RISKLess than 200 mg/dl Low Hktk267 to 239 mg/dl Borderline Tmzg817 mg/dl and greater High Risk Performed By: #### 26513, 21758, 44179, 53912, 47627 ####[facility] [facility] [address], USACholesterol to HDL Ratio 5.1 {ratio}High.0-4.5The [facility] HospitalComment on above: Performed By: #### 62822, 28692, 63769, 58068, 37583 ####[facility] [place] [address], USAHDL Slowzmttzgh06 mg/dL Oitwhl18-37Nti [facility] HospitalComment on above:Result Comment: Slight variation in normal range could be due to gender and/or age.HDL CHOLESTEROL REFERENCE RANGE:20 years and older Cardiovascular Risk> or =60 mg/dL Cjneozxyg73 TO 59 mg/dL Low Risk<40 mg/dL High RiskPerformed By: #### 44013, 11004, 31508, 47163, 76962 ####[facility] [place] [address], [facility] CENTERLDL Pfudfohavzl461 mg/dLNormal0-130The [facility] HospitalComment on above:Result Comment: LDL IS A CALCULATIONLDL IS ONLY VALID IF THE TRIG IS LESS THAN 400.Performed By: #### 23994, 92402, 31098, 79409, 48207 ####[facility] [place] [address], [facility] CENTERNON-HDL AFZDIESQONR116 mg/dLNormalThe [facility] HospitalComment on above:Performed By: #### 98912, 69642, 56815, 48147, 31186 ####[facility] [place] [address], [facility] Buayghzlmvlu50 mg/dKOjfohs51-362Jgy [facility] HospitalComment on above:Result Comment: TRIGLYCERIDE REFERENCE RANGE:20 YEARS AND OLDER CARDIOVASCULAR RISKLESS THAN 150 mg/dl LOW SHGX458 TO 199 mg/dl BORDERLINE IMZK767 mg/dl AND GREATER HIGH RISKPerformed By: #### 64375, 20940, 84928, 60904, 95169 ####[facility] [place] [address], [facility] CENTERVLDL CHOL18 mg/dLNormal0-40The [facility] Comment on above:Performed By: #### 60708, 42419, 94845, 31036, 76209 ####[facility] [place] [address], [facility] MAGNESIUM BLOODon 58-62-3255Bgqlpugfi0.0 mg/dLNormal1.9-2.7The [facility] HospitalComment on above:Order Comment: << On admission If not done in ED>>No: Do not add to previous drawPerformed By: #### 99434, 08097, 33826, 40521, 38732 ####[facility] [place] [address], [facility] CENTERCBC W/DIFFon 92-28-2579Pmhkkhort Auto #/vol (Bld)0.0 %Normal0.0-2.0 The [facility] HospitalComment on above:Order Comment: If not done in EDNo: Do not add to previous drawPerformed By: #### 20149 ####[facility] [place] [address], [facility] CENTEREosinophils/100 leukocytes1.0 %Normal0.0-5.0The [facility] HospitalComment on above:Order Comment: If not done in EDNo: Do not add to previous drawPerformed By: #### 25281 ####[facility] [place] [address], [facility] CENTERErythrocyte distribution width Auto Ratio (RBC)14.2 %Normal 11.5-16.9The [facility] HospitalComment on above:Order Comment: If not done in EDNo: Do not add to previous drawPerformed By: #### 43768 ####[facility] [place] [address], [facility] Erythrocytes (RBC)4.17 mill/qz2Bfl2.30-5.90The [facility] HospitalComment on above:Order Comment: If not done in EDNo: Do not add to previous drawPerformed By: #### 36380 ####[facility] [place] [address], [facility] CENTERHematocrit (HCT)41.7 %Normal 39.0-55.0The [facility] HospitalComment on above:Order Comment: If not done in EDNo: Do not add to previous drawPerformed By: #### 78400 ####[facility] [place] [address], [facility] Hemoglobin mass conc (Bld)13.9 g/bQOpkerx41.9-16.3The [facility] HospitalComment on above:Order Comment: If not done in EDNo: Do not add to previous drawPerformed By: #### 26618 ####[facility] [place] [address], [facility] CENTERLymphocytes/100 .0 % Low20.0-40.0The [facility] HospitalComment on above:Order Comment: If not done in EDNo: Do not add to previous drawPerformed By: #### 25076 ####[facility] [place] [address], HUFNSC03.2 njPsqm17.0-32.0The [facility] HospitalComment on above:Order Comment: If not done in EDNo: Do not add to previous draw Performed By: #### 95157 ####[facility] [place] [address], [facility] MUS[facility]OGEEHC mass conc (RBC)33.3 g/qGNpzgey60.0-36.0The [facility] HospitalComment on above:Order Comment: If not done in EDNo: Do not add to previous drawPerformed By: #### 98130 ####[facility] [place] [address], YBJVAV244.0 fLNormal 80.0-100.0The [facility] HospitalComment on above:Order Comment: If not done in EDNo: Do not add to previous drawPerformed By: #### 70789 ####[facility] [place] [address], [facility] METHODManual blood smear examination performedNoThe MetroHealth SystemComment on above:Order Comment: If not done in EDNo: Do not add to previous drawPerformed By: #### 04746 ####[facility] [place] [address], VXLVJUJP94.0 %High2-8The [facility] HospitalComment on above:Order Comment: If not done in EDNo: Do not add to previous drawPerformed By: #### 11004 ####[facility] [place] [address], USAOTHER 1NORMAL RED CELL MORPHOLOGY SEENNormalThe [facility] HospitalComment on above: Order Comment: If not done in EDNo: Do not add to previous drawPerformed By: #### 66716 ####[facility] [place] [address], USAPLAT TPZ163 Thou/jv4Vehnff996-456Yzp [facility] HospitalComment on above:Order Comment: If not done in EDNo: Do not add to previous drawPerformed By: #### 55647 ####[facility] [place] [address], CBIBSQY53.0 %Fdgahi64-43Jrr [facility] HospitalComment on above:Order Comment: If not done in EDNo: Do not add to previous drawPerformed By: #### 97466 ####[facility] [place] [address], [facility] CENTERWBC (Leukocytes) 11.0 Thou/ue0Rzmh9.0-10.0The [facility] HospitalComment on above:Order Comment: If not done in EDNo: Do not add to previous drawPerformed By: #### 58296 ####[facility] [place] [address], [facility] CENTERCOMP METABOLIC PANELon 34-82-9276Rgqwfok aminotransferase (ALT)33 U/LNormal7-52The [facility] HospitalComment on above:Order Comment: << On admission If not done in ED>>No: Do not add to previous draw Performed By: #### 86414, 93234, 76278, 46341, 65270 ####[facility] [place] [address], USAAlbumin3.7 g/dLNormal 3.5-5.7The [facility] HospitalComment on above:Order Comment: << On admission If not done in ED>>No: Do not add to previous drawPerformed By: #### 81139, 37306, 78501, 23082, 96311 ####[facility] [place] [address], USAALKALINE SYQLSB37 IU/VDwcrqn02-260 The [facility] HospitalComment on above:Order Comment: << On admission If not done in ED>>No: Do not add to previous drawPerformed By: #### 80853, 32527, 15025, 94684, 80247 ####[facility] [place] [address], USAAspartate aminotransferase (AST)30 U/LNormal 13-39The [facility] HospitalComment on above:Order Comment: << On admission If not done in ED>>No: Do not add to previous drawPerformed By: #### 28414, 30447, 87730, 99107, 95415 ####[facility] [place] [address], USABilirubin (total)1.4 mg/dLHigh 0.3-1.0The [facility] HospitalComment on above:Order Comment: << On admission If not done in ED>>No: Do not add to previous drawPerformed By: #### 76716, 10375, 57074, 36999, 30837 ####[facility] [place] [address], USACalcium8.9 mg/dLNormal8.6-10.3The [facility] HospitalComment on above:Order Comment: << On admission If not done in ED>>No: Do not add to previous drawPerformed By: #### 68056, 89244, 26548, 53870, 06221 ####[facility] [place] [address], JOANbdlrelg590 mmol/KZxddcf05-332Pcp [facility] HospitalComment on above:Order Comment: << On admission If not done in ED>>No: Do not add to previous drawPerformed By: #### 47954, 57160, 87793, 96559, 65099 ####[facility] [place] [address], VYMMV569 mmol/BWdorjp49-28Kbh [facility] HospitalComment on above:Order Comment: << On admission If not done in ED>>No: Do not add to previous drawPerformed By: #### 88341, 22472, 16864, 42634, 49401 ####[facility] [place] [address], [facility] Creatinine0.87 mg/dLNormal0.70-1.30[facility] Comment on above:Order Comment: << On admission If not done in ED>>No: Do not add to previous drawPerformed By: #### 68069, 58930, 69141, 48905, 20245 ####[facility] [place] [address], [facility] eGFR (black)mL/min/{1.73_m2}Normal>60[facility] Comment on above:Order Comment: << On admission If not done in ED>>No: Do not add to previous drawPerformed By: #### 49727, 20807, 16503, 22079, 61003 ####[facility] [place] [address], [facility] eGFR (non-black)mL/min/{1.73_m2}Normal>60[facility] Comment on above:Order Comment: << On admission If not done in ED>>No: Do not add to previous drawPerformed By: #### 72538, 28694, 88713, 11598, 03886 ####[facility] [place] [address], [facility] Glucose mass bynz314 mg/eOBthcwn47-341Mhj [facility] Comment on above:Order Comment: << On admission If not done in ED>>No: Do not add to previous drawPerformed By: #### 53823, 70298, 81043, 55699, 88056 ####[facility] [place] [address], [facility] Potassium molar conc4.1 mmol/LNormal3.5-5.1The [facility] [place] [facility] HospitalComment on above:Order Comment: << On admission If not done in ED>>No: Do not add to previous drawPerformed By: #### 42601, 62962, 57582, 48803, 92112 ####[facility] [place] [address], [facility] Protein6.3 g/dLNormal6.0-8.3The [facility] [place] [facility] HospitalComment on above:Order Comment: << On admission If not done in ED>>No: Do not add to previous drawPerformed By: #### 89175, 66200, 96773, 74484, 38853 ####[facility] [place] [address], IMEWxwarq399 mmol/HKihqoi847-337Rms [facility] [place] [facility] HospitalComment on above:Order Comment: << On admission If not done in ED>>No: Do not add to previous draw Performed By: #### 57922, 82896, 88576, 48990, 51074 ####[facility] [place] [address], USAUrea mg/dL Normal7-25The [facility] [place] [facility] HospitalComment on above:Order Comment: << On admission If not done in ED>>No: Do not add to previous drawPerformed By: #### 41160, 80348, 40585, 19889, 21072 ####[facility] [place] [address], USACOOXIMETRYon 43-84-9046NHQE7 % NormalThe [facility] [place] [facility] HospitalComment on above:Order Comment: RESULTS CHECKED AND CALLED. ACCURATELY READ BACK BY JOSUÉ Xiaoformed By: #### 93732 ####[facility] [place] [address], USAMETHB0 %NormalThe [facility] [place] [facility] HospitalComment on above: Order Comment: RESULTS CHECKED AND CALLED. ACCURATELY READ BACK BY JOSUÉ YUSUF Performed By: #### 02677 ####[facility] [place] [address], USAO2 ujpvxynqpd03.2 %Low60.0-80.0The [facility] [place] [facility] HospitalComment on above:Order Comment: RESULTS CHECKED AND CALLED. ACCURATELY READ BACK BY JOSUÉ Xiaoformed By: #### 25073 ####[facility] [place] [address], UBNCMT97.2 g/dLLow 13.9-16.3The [facility] [place] [facility] HospitalComment on above:Order Comment: RESULTS CHECKED AND CALLED. ACCURATELY READ BACK BY JOSUÉ Xiaoformed By: #### 13112 ####[facility] [place] [address], USAFREE T4on 50-24-4181Znfbcojym (T4) free1.14 ng/dLNormal0.71-1.85The [facility] [place] [facility] HospitalComment on above:Order Comment: If not done in EDNo: Do not add to previous drawPerformed By: #### 16520, 97956, 18524, 62134, 56541 ####[facility] [place] [address], USAHEMOGLOBIN A1Con 17-01-9611Kjppwld mass xpbn676 mg/nFZpcxhm64-829 The [facility] [place] [facility] HospitalComment on above:Order Comment: If not done in EDNo: Do not add to previous drawPerformed By: #### 10476 ####[facility] [place] [address], [facility]ENTERHemoglobin A1c/Hemoglobin.total mass fraction (Bld)5.7 %Normal4.0-6.0The [facility] [place] [facility] HospitalComment on above:Order Comment: If not done in EDNo: Do not add to previous drawPerformed By: #### 93210 ####[facility] [place] [address], USAMAGNESIUM BLOODon 12-12-2016 Magnesium1.9 mg/dLNormal1.9-2.7The [facility] [place] [facility] HospitalComment on above:Order Comment: << ON ADMISSION If not done in ED>>No: Do not add to previous drawPerformed By: #### 25551, 52013, 93157, 62807, 35677 ####[facility] [place] [address], USAPORTABLE CHEST 1 VIEWon 58-57-2994WQRXWYYB CHEST 1 VIEWUnUniversity Hospitals [facility] Medical CenterDepartment of Fwclawima[address] [place], [place] [address] Patien t Name: TORSTEN HAYWOOD : 1955Sex: MAge: Race: WhiteMRN: [id number]. Location: [id number]: IVisit #: [id number] Date: 12/12/2016 6:15:00 AMCompleted Date: 12/12/2016 06:47 AMRequesting Provider: EMERSON SETHI Attending Provider: BLAKE LUCAS AM Report Copy To: Signs & Symptoms: Chest PainHistory: Patient history not availableComments: R/O CHFExam: PORTABLECHEST 1 VIEWAccession #: [id number] ======PORTABLE CHEST 1 VIEW 12/12/2016 6:47 AM [...] atelectasis Electronically signed by:Jose Medina. Transcribed by: [id number], User Resident: Electronically Signed by: JOSE MEDINA @ 12/12/2016 12:35 PMNormalThe [facility] [place] [facility] HospitalComment on above:Order Comment: R/O CHFTROPONIN-Ion 51-45-0016Epptrjuk I.cardiac mass conc0.08 ng/mLHigh0.00-0.04The [facility] [place] [facility] HospitalComment on above:Result Comment: REFERENCE RANGES: 0.00 - 0.04 ng/ml NORMAL 0.05 - 0.50 ng/ml INDETERMINATE > 0.50 ng/ml CONSISTENT WITH AN M.I. Performed By: #### 94337, 64881, 00886, 03345, 67332 ####[facility] [place] [address], [facility] CENTERTSHon 77-75-1897Pujedei stimulating hormone (TSH)2.59 MICRO-IU/MLNormal0.34-5.60The [facility] [place] [facility] HospitalComment on above:Order Comment: If not done in EDNo: Do not add to previous drawPerformed By: #### 43281, 98279, 17463, 08148, 04355 ####[facility] [place] [address], [facility] Vital Signs Date TimeVital SignValuePerforming PfuuqekptRymixlfj36-44-0339 14:58-0400Body jijxjc444 cmPfo [address] [place], [place] 6696709-12-2025 14:58-0400Body mass index (BMI) [Ratio]32.45 kg/m2Pfo [address] [place], [place] 6696709-12-2025 14:58-0400Body gghwltlazsm95.81 [degF]Pfo [address] [place], [place] 6696709-12-2025 14:58-0400Body .[address] [place], [place] 6696709-12-2025 14:58-0400Diastolic blood vbyynlbs63 mm[Hg]Pfo [address] [place], [place] 6696709-12-2025 14:58-0400Heart rate59 /minPfo [address] [place], [place] 6696709-12-2025 14:58-0400Respiratory rate16 /minPfo [address] [place], [place] 6696709-12-2025 14:58-1856EkQ9% (BldA) [Mass fraction]96 %[address]09-12-2025 14:58-0400Systolic blood pdgefoaf43 mm[Hg]o [address] [place], [place] 6696709-11-2025 11:24-0400Body hfwdad623 Abel Prado MD Work Phone: [facility]09-11-2025 11:24-0400Body mass index (BMI) [Ratio]32.07 kg/g5LtdtbWallace Prado MD Work Phone: [facility]09-11-2025 11:24-0400Body kjvftxlmnji20.4 [degF]Wallace Prado MD Work Phone: [facility]09-11-2025 11:24-0400Body imnuxn895.41 kgWallace Prado MD Work Phone: [facility]09-11-2025 11:24-0400Diastolic blood pilffxoa41 mm[Hg]Wallace Prado MD Work Phone: [facility]09-11-2025 11:24-0400Heart rate 95 /minWallace Prado MD Work Phone: [facility]09-11-2025 11:24-0400 Respiratory rate17 /minWallace Prado MD Work Phone: [facility]09-11-2025 11:24-8992PaS3% (BldA) [Mass fraction]95 %Wallace Prado MD Work Phone: [facility]09-11-2025 11:24-0400Systolic blood jmxkrinx027 mm[Hg]Wallace Prado MD Work Phone: [facility]08-29-2025 14:25-0400Body clwoev975 [address] [place], [place] 6696708-29-2025 14:25-0400Body mass index (BMI) [Ratio]32.32 kg/m2Pfo [address] [place], [place] 6696708-29-2025 14:25-0400Body edvxlyciosg56 [degF]Pfo [address] [place], [place] 6696708-29-2025 14:25-0400Body weight 108.[address] [place] 6696708-29-2025 14:25-0400Diastolic blood tuaxwvfq35 mm[Hg]Pfo [address] [place] 6696708-29-2025 14:25-0400Heart rate94 /minPfo [address] [place] 6696708-29-2025 14:25-0400Respiratory rate16 /minPfo [address] [place] 6696708-29-2025 14:25-0625RpT4% (BldA) [Mass fraction]96 %o [address] [place], [place] 6696708-29-2025 14:25-0400Systolic blood sgefzxel839 mm[Hg] Pfo [address] [place], [place] 6696708-28-2025 08:25-0400Body cmPfo [address] [place], [place] 5155908-28-2025 08:25-0400Body mass index (BMI) [Ratio]32.1 kg/m2Pfo [address] [place], [place] 7544908-28-2025 08:25-0400Body vsweiujffps93.59 [degF]Pfo [address] [place], [place] 7544908-28-2025 08:25-0400Body zfnhjy605.[address] [place], [place] 5155908-28-2025 08:25-0400Diastolic blood csojntqc82 mm[Hg]Pfo 7 [facility]08-28-2025 08:25-0400Heart ftej114 /minPfo [address] [place], [place] 5155908-28-2025 08:25-0400Respiratory rate16 /minPfo [address] [place], [place] 5155908-28-2025 08:25-3980FwC3% (BldA) [Mass fraction]96 %Pfo [address] [place], [place] 5155908-28-2025 08:25-0400Systolic blood nqzuulbb003 mm[Hg]Pfo [address] [place], [place] 5155908-15-2025 13:55-0400Body gzbsvu585 [address] 11-11-2024 13:55-0400Body mass index (BMI) [Ratio]32.13 kg/m[address]08-15-2025 13:55-0400Body ccgitwtsyuy96.3 [degF]Pfo [address] [place], [place] 6696708-15-2025 13:55-0400Body .[address] [place] 6696708-15-2025 13:55-0400Diastolic blood rnjhhnto01 mm[Hg]Pfo [address] [place] 6696708-15-2025 13:55-0400Heart rate93 /min[address] 11-11-2024 13:55-0400Respiratory rate22 /minPfo [address] [place] [address] 11-11-2024 13:55-2788SnP0% (BldA) [Mass fraction]95 %Pf[address]08-15-2025 13:55-0400Systolic blood sjuushuh064 mm[Hg]Pfo [address] [place], [place] 6696708-14-2025 09:51-0400Body osblcn022 [address] 11-10-2024 09:51-0400Body mass index (BMI) [Ratio]32.13 kg/m[address]08-14-2025 09:51-0400Body oasahnackyi62.81 [degF]Pfo [address] [place], [place] 5155908-14-2025 09:51-0400Body biufst462.[address] [place], [place] 5155908-14-2025 09:51-0400Diastolic blood opszezpi15 mm[Hg]Pfo [address] [place], [place] 5155908-14-2025 09:51-0400Heart cyqp006 /minPfo [address] [place] [address] 11-10-2024 09:51-0400Respiratory rate17 /minPfo [address] [place] [address] 11-10-2024 09:51-9542KwN4% (BldA) [Mass fraction]93 %Pfo [address] [place], [place] 5155908-14-2025 09:51-0400Systolic blood uelolhxx740 mm[Hg]Pfo [address] [place], [place] 5155908-08-2025 08:47-0400Body Abel Prado MD Work Phone: [facility]08-08-2025 08:47-0400Body mass index (BMI) [Ratio]31.91 kg/q9NhsilWallace Prado MD Work Phone: [facility]08-08-2025 08:47-0400Body pfvsnqeypkb54.39 [degF]Wallace Prado MD Work Phone: [facility]08-08-2025 08:47-0400Body .87 kgWallace Prado MD Work Phone: [facility]08-08-2025 08:47-0400Diastolic blood ibntzvqm97 mm[Hg]Wallace Prado MD Work Phone: [facility]08-08-2025 08:47-0400Heart rate 95 /Lakeshia rPado MD Work Phone: [facility]08-08-2025 08:47-0400 Respiratory rate16 /Lakeshia Prado MD Work Phone: [facility]08-08-2025 08:47-0965BpK0% (BldA) [Mass fraction]94 %Wallace Prado MD Work Phone: [facility]08-08-2025 08:47-0400Systolic blood ggzchnto424 mm[Hg]Wallace Prado MD Work Phone: [facility]08-01-2025 11:53-0400Body kxphyh388 [facility] [address] [place], [place] 6696708-01-2025 11:53-0400Body mass index (BMI) [Ratio]32.02 kg/m2Pfo [address] [place], [place] 6696708-01-2025 11:53-0400Body cmeyolyikba70.2 [degF]Pfo [address] [place], [place] 6696708-01-2025 11:53-0400Body .23 [address] [place], [place] 6696708-01-2025 11:53-0400Diastolic blood ucegnavj51 mm[Hg]Pfo [address] [place] 6696708-01-2025 11:53-0400Heart rate78 /minPfo [address] [place], [place] 6696708-01-2025 11:53-0400Respiratory rate16 /minPfo [address] [place], [place] 6696708-01-2025 11:53-3790YmH9% (BldA) [Mass fraction]92 %Pfo [address] [place], [place] 6696708-01-2025 11:53-0400Systolic blood xusreoco311 mm[Hg] Pfo [address] [place], [place] 6696707-31-2025 09:07-0400Body tedhiv435 [facility] [address] [place], [place] 5155907-31-2025 09:07-0400Body mass index (BMI) [Ratio]31.94 kg/m2fo [address] [place], [place] 7544907-31-2025 09:07-0400Body vwepxalgvnu54.29 [degF]Pfo [address] [place], [place] 7544907-31-2025 09:07-0400Body gtgvir194.[address] [place], [place] 5155907-31-2025 09:07-0400Diastolic blood fvcnnugf76 mm[Hg]Pfo [address] [place], [place] 7544907-31-2025 09:07-0400Heart rate95 /minPfo [address] [place], [place] 5155907-31-2025 09:07-0400Respiratory rate20 /minPfo [address] [place], [place] 5155907-31-2025 09:07-8051ZeE9% (BldA) [Mass fraction]95 %Pfo [address] [place], [place] 5155907-31-2025 09:07-0400Systolic blood cgtmlapq820 mm[Hg]Pfo [address] [place], [place] 5155907-18-2025 12:03-0400Body [facility] [address] [place] [address] 10-14-2024 12:03-0400Body mass index (BMI) [Ratio]32.29 kg/m2Pfo [address] [place], [place] 6696707-18-2025 12:03-0400Body yylcnaatcmk57.59 [degF]Pfo [address] [place], [place] 6696707-18-2025 12:03-0400Body mepovk481.[address] [place], [place] 6696707-18-2025 12:03-0400Diastolic blood igfymixp57 mm[Hg]Pfo [address] [place], [place] 6696707-18-2025 12:03-0400Heart rate66 /minPfo [address] [place] [address] 10-14-2024 12:03-0400Respiratory rate15 /minPfo [address] [place] [address] 10-14-2024 12:03-7293ZtK8% (BldA) [Mass fraction]93 %Pfo [address] [place], [place] 6696707-18-2025 12:03-0400Systolic blood phortsgc536 mm[Hg]Pfo [address] [place] 6696707-17-2025 08:54-6239IoQ8% (BldA) [Mass fraction]95 %Pfo [address] [place], [place] 5155907-17-2025 08:48-0400Body evqtjv816 [address] 10-13-2024 08:48-0400Body mass index (BMI) [Ratio]31.78 kg/m2Pfo [address] [place], [place] 5155907-17-2025 08:48-0400Body wvzzwzbyzfs60.5 [degF]Pfo [address] [place], [place] 5155907-17-2025 08:48-0400Body .[address] [place], [place] 5155907-17-2025 08:48-0400Diastolic blood fqtmilnn94 mm[Hg]Pfo [address] [place], [place] 5155907-17-2025 08:48-0400Heart ducw693 /minPfo [address] [place] [address] 10-13-2024 08:48-0400Respiratory rate16 /minPfo [address] [place] [address] 10-13-2024 08:48-0400Systolic blood xsxgccyh098 mm[Hg]Pfo [address] [place], [place] 5155907-03-2025 07:56-0400Body gwmjes405 [facility] [address] [place] [address] 09-29-2024 07:56-0400Body mass index (BMI) [Ratio]31.32 kg/m[address]07-03-2025 07:56-0400Body dgcezhgtgdv60.39 [degF]Pfo [address] [place], [place] 5155907-03-2025 07:56-0400Body mcrmxo691.[address] [place], [place] 5155907-03-2025 07:56-0400Diastolic blood yjspvrru10 mm[Hg][address]07-03-2025 07:56-0400Heart rate95 /min[address] 09-29-2024 07:56-0400Respiratory rate16 /min[address] 09-29-2024 07:56-8623AoE9% (BldA) [Mass fraction]94 %[address]07-03-2025 07:56-0400Systolic blood zrkrvziu606 mm[Hg][address]06-20-2025 14:47-0400Body qtzlxo176 Abel Prado MD Work Phone: [facility]06-20-2025 14:47-0400Body mass index (BMI) [Ratio]31.64 kg/b2GktjzWallace Prado MD Work Phone: [facility]06-20-2025 14:47-0400Body zubvofgbell93.7 [degF]Wallace Prado MD Work Phone: [facility]06-20-2025 14:47-0400Body kftomy350.96 kgWallace Prado MD Work Phone: [facility]06-20-2025 14:47-0400Diastolic blood hfqehtcv58 mm[Hg]Wallace Prado MD Work Phone: [facility]06-20-2025 14:47-0400Heart rate 75 /minWallace Prado MD Work Phone: [facility]06-20-2025 14:47-0400 Respiratory rate16 /minWallace Prado MD Work Phone: [facility]06-20-2025 14:47-9072XxN1% (BldA) [Mass fraction]93 %Wallace Prado MD Work Phone: [facility]06-20-2025 14:47-0400Systolic blood jefgkwht695 mm[Hg]Wallace Prado MD Work Phone: [facility]06-19-2025 11:07-0400Body [facility] [address] [place], [place] 5155906-19-2025 11:07-0400Body mass index (BMI) [Ratio]31.4 kg/m2Pfo [address] [place], [place] 5155906-19-2025 11:07-0400Body tbisbpupecb20.39 [degF]Pfo [address] [place], [place] 5155906-19-2025 11:07-0400Body kduyuf953.[address] [place], [place] 5155906-19-2025 11:07-0400Diastolic blood iylgcris60 mm[Hg]Pfo [address] [place], [place] 5155906-19-2025 11:07-0400Heart djpb928 /minPfo [address] [place], [place] 5155906-19-2025 11:07-0400Respiratory rate18 /minPfo [address] [place], [place] 5155906-19-2025 11:07-4548JeW2% (BldA) [Mass fraction]94 %[address]06-19-2025 11:07-0400Systolic blood esghrejh150 mm[Hg] o [address] [place], [place] 5155906-06-2025 13:05-0400Body [address]06-06-2025 13:05-0400Body mass index (BMI) [Ratio]31.45 kg/m2Pfo 1 [facility]06-06-2025 13:05-0400Body ycqxmxsskhf13.39 [degF]Pfo 1 [facility]06-06-2025 13:05-0400Body eurwbi908.[address] [place] 6696706-06-2025 13:05-0400Diastolic blood cueheuqz22 mm[Hg]Pfo 1 [facility]06-06-2025 13:05-0400Heart rate60 /minPfo [address] [place], [place] 6696706-06-2025 13:05-0400Respiratory rate16 /minPfo [address] [place], [place] 6696706-06-2025 13:05-5807KyJ7% (BldA) [Mass fraction]95 %Pfo [address] [place], [place] 6696706-06-2025 13:05-0400Systolic blood pgthuwdh951 mm[Hg]Pfo [address] [place] 6696706-05-2025 08:50-0400Body hbwvem499 [facility] [address] [place] [address] 09-01-2024 08:50-0400Body mass index (BMI) [Ratio]31.04 kg/m2Pfo [address] [place], [place] 5155906-05-2025 08:50-0400Body cbhvuckdtza00.1 [degF]Pfo [address] [place], [place] 5155906-05-2025 08:50-0400Body mytnap013.[address] [place], [place] 5155906-05-2025 08:50-0400Diastolic blood gnzyskid56 mm[Hg]Pfo [address] [place], [place] 5155906-05-2025 08:50-0400Heart rate92 /minPfo [address] [place] [address] 09-01-2024 08:50-0400Respiratory rate16 /minPfo [address] [place] [address] 09-01-2024 08:50-0521AzG4% (BldA) [Mass fraction]92 %Pfo [address] [place], [place] 5155906-05-2025 08:50-0400Systolic blood gazltcsa354 mm[Hg]Pfo [address] [place], [place] 5155905-09-2025 13:29-0400Body nvilfn064 [address] 08-05-2024 13:29-0400Body mass index (BMI) [Ratio]31.15 kg/m2fo [address] [place], [place] 6696705-09-2025 13:29-0400Body uhkgdevykps62.29 [degF]Pfo [address] [place], [place] 6696705-09-2025 13:29-0400Body nshupj925.[address] [place], [place] 6696705-09-2025 13:29-0400Diastolic blood odleynun32 mm[Hg]Pfo [address] [place], [place] 6696705-09-2025 13:29-0400Heart rate69 /minPfo [address] [place] [address] 08-05-2024 13:29-0400Respiratory rate16 /minPfo [address] [place] [address] 08-05-2024 13:29-6982ZhK1% (BldA) [Mass fraction]91 %Pfo [address] [place], [place] 6696705-09-2025 13:29-0400Systolic blood lxavqaea224 mm[Hg]Pfo [address] [place], [place] 6696705-08-2025 09:57-0400Body uhqfxb544 [facility] [address] [place] [address] 08-04-2024 09:57-0400Body mass index (BMI) [Ratio]31.15 kg/m2fo [address] [place], [place] 6696705-08-2025 09:57-0400Body gzrkqbwdryb28.3 [degF]Pfo [address] [place], [place] 6696705-08-2025 09:57-0400Body etprjj979.[address] [place], [place] 6696705-08-2025 09:57-0400Diastolic blood ljlyfxou63 mm[Hg]o [address] [place], [place] 6696705-08-2025 09:57-0400Heart rate96 /minPfo [address] [place] [address] 08-04-2024 09:57-0400Respiratory rate18 /minPfo [address] [place] [address] 08-04-2024 09:57-3873ZnJ3% (BldA) [Mass fraction]95 %Pf[address]05-08-2025 09:57-0400Systolic blood hksivdyy517 mm[Hg]o [address] [place], [place] 6696704-25-2025 14:21-0400Body [facility] [address] [place] [address] 07-22-2024 14:21-0400Body mass index (BMI) [Ratio]31.21 kg/m2fo [address] [place], [place] 6696704-25-2025 14:21-0400Body ipwvwbvzlco71.2 [degF]Pfo [address] [place], [place] 6696704-25-2025 14:21-0400Body zaptne073.[address] [place], [place] 6696704-25-2025 14:21-0400Diastolic blood sfbbxahu25 mm[Hg]Pf[address]04-25-2025 14:21-0400Heart rate72 /minPfo [address] [place] [address] 07-22-2024 14:21-0400Respiratory rate16 /minPfo [address] [place] [address] 07-22-2024 14:21-3409CmH3% (BldA) [Mass fraction]96 %Pf[address]04-25-2025 14:21-0400Systolic blood geepanet593 mm[Hg][address]04-24-2025 09:59-0400Body sngleo545 Abel Prado MD Work Phone: [facility]04-24-2025 09:59-0400Body mass index (BMI) [Ratio]30.58 kg/w1GnrmjWallace Praod MD Work Phone: [facility]04-24-2025 09:59-0400Body icbuqqklxrk79.5 [degF]Wallace Prado MD Work Phone: [facility]04-24-2025 09:59-0400Body ljwdvu798.42 kgWallace Prado MD Work Phone: [facility]04-24-2025 09:59-0400Diastolic blood vfbujrwq00 mm[Hg]Wallace Prado MD Work Phone: [facility]04-24-2025 09:59-0400Heart rate 77 /Lakeshia Prado MD Work Phone: [facility]04-24-2025 09:59-0400 Respiratory rate16 /Lakeshia Prado MD Work Phone: [facility]04-24-2025 09:59-5014SgO8% (BldA) [Mass fraction]96 %Wallace Prado MD Work Phone: [facility]04-24-2025 09:59-0400Systolic blood udryozmq406 mm[Hg]Wallace Prado MD Work Phone: [facility]04-10-2025 09:41-0400Body cmPfo [address] [place], [place] 5598504-10-2025 09:41-0400Body mass index (BMI) [Ratio]30.18 kg/m2P[address]04-10-2025 09:41-0400Body dyngcv918.[address]04-10-2025 08:59-0400Body mass index (BMI) [Ratio]29.95 kg/w7DbbwnWallace Prado MD Work Phone: [facility]04-10-2025 08:59-0400Body aptgmneafmw23.3 [degF]Wallace Prado MD Work Phone: [facility]04-10-2025 08:59-0400Body .97 kgWallace Prado MD Work Phone: [facility]04-10-2025 08:59-0400Diastolic blood yowulqbx10 mm[Hg]Wallace Prado MD Work Phone: [facility]04-10-2025 08:59-0400Heart rate 109 /minWallace Prado MD Work Phone: [facility]04-10-2025 08:59-0400 Respiratory rate24 /minWallace Prado MD Work Phone: [facility]04-10-2025 08:59-7269CpV4% (BldA) [Mass fraction]91 %Wallace Prado MD Work Phone: [facility]04-10-2025 08:59-0400Systolic blood znsmizbs617 mm[Hg]Wallace Prado MD Work Phone: [facility]03-06-2025 11:17-0500Body ojufwg305.9 Abel Prado MD Work Phone: [facility]03-06-2025 11:17-0500Body mass index (BMI) [Ratio]30.45 kg/k1VqknyWallace Prado MD Work Phone: 1(384)8-[address] [place], [place] 1421703-06-2025 11:17-0500Body kgpbkwhwidc43.5 [degF]Wallace Prado MD Work Phone: 1(862)433-[address] [place], [place] 1421703-06-2025 11:17-0500Body .88 kgWallace Prado MD Work Phone: 1(860)0-[address] [place], [place] 1421703-06-2025 11:17-0500Diastolic blood mxbwuoyq87 mm[Hg]Wallace Prado MD Work Phone: 1(046)2-[address] [place], [place] 1421703-06-2025 11:17-0500Heart rate 101 /minWallace Prado MD Work Phone: 1(908)0-[address] [place], [place] 1421703-06-2025 11:17-0500 Respiratory rate16 /minWallace Prado MD Work Phone: 1(744)2-[address] [place], [place] 1421703-06-2025 11:17-0859ZsQ3% (BldA) [Mass fraction]95 %Wallace Prado MD Work Phone: 1(125)7-[address] [place], [place] 1421703-06-2025 11:17-0500Systolic blood fewbinpx747 mm[Hg]Wallace Prado MD Work Phone: 1(512)7-[address] [place], [place] 1421703-04-2025 09:04-0500Body rgpaop393.4 cmQuin Mas MD Work Phone: [facility] CenterNikcziruer33-71-7792 09:04-0500Body mass index (BMI) [Ratio]26.39 kg/v3PezcciQuin Mas MD Work Phone: [facility] CenterKadwfnlgyh93-44-3976 09:04-0500Body jixomn53.72 kgQuin Mas MD Work Phone: [facility] CenterUfrcdjlroz04-71-4296 09:04-0500Diastolic blood hufuyatm55 mm[Hg]Quin Mas MD Work Phone: 1(419)483-[address] [place], [place] [address]Kortdtoahs71-56-5170 09:04-0500Heart dqap256 /min Quin Mas MD Work Phone: 1(888)[address] [place], [place] 9320303-04-2025 09:04-0500Systolic blood uozatziw087 mm[Hg]Quin Mas MD Work Phone: 1(562)[address] [place], [place] 9320301-29-2025 11:09-0500Body cwvxlo053.4 cmQuin Mas MD Work Phone: 1(382)[address] [place], [place] 9320301-29-2025 11:09-0500Body mass index (BMI) [Ratio]26.39 kg/n5ZmncxzQuin Mas MD Work Phone: 1(807)[address] [place], [place] 9320301-29-2025 11:09-0500Body yqgugw03.72 kgQuin Mas MD Work Phone: 1(592)[address] [place], [place] 9320301-29-2025 11:09-0500Diastolic blood ulijsnay99 mm[Hg]Quin Mas MD Work Phone: 1(300)[address] [place], [place] 9320301-29-2025 11:09-0500Heart jlmq979 /min Quin Mas MD Work Phone: 1(521)[address] [place], [place] 9320301-29-2025 11:09-0500Systolic blood ivxshtnb23 mm[Hg]Quin Mas MD Work Phone: 1(217)[facility] [place], [place] [address]Cmuvcsrmwy36-85-9237 13:32-0500Body ddljdy305.9 Abel Prado MD Work Phone: [facility]01-09-2025 13:32-0500Body mass index (BMI) [Ratio]29.78 kg/r4QebjqWallace Prado MD Work Phone: [facility]01-09-2025 13:32-0500Body cgtbruvcvoj58.5 [degF]Wallace Prado MD Work Phone: [facility]01-09-2025 13:32-0500Body egalrr99.61 kgWallace Prado MD Work Phone: [facility]01-09-2025 13:32-0500Diastolic blood pokbvnxo13 mm[Hg]Wallace Prado MD Work Phone: 1(354)676-[address] [place] [address] DFine Wusyjx93-57-6235 13:32-0500Heart rate 104 /minWallace Prado MD Work Phone: 1(607)658-[address] [place], [place] 1421701-09-2025 13:32-0500 Respiratory rate16 /minWallace Prado MD Work Phone: 1(056)300-[address] [place], [place] 1421701-09-2025 13:32-1602VqJ5% (BldA) [Mass fraction]96 %Wallace Prado MD Work Phone: 1(420)764-[address] [place] [address] DFine Lflabs38-95-4620 13:32-0500Systolic blood dzkynopz490 mm[Hg]Wallace Prado MD Work Phone: 1(118)852-[address] [place] [address] DFine Zrhmud36-79-6001 13:20-0500Body bppfaf844.9 Abel Prado MD Work Phone: 1(788)6-[address] [place], [place] 1421712-06-2024 13:20-0500Body mass index (BMI) [Ratio]29.56 kg/r1HtosbWallace Prado MD Work Phone: 1(680)644-[address] [place] [address] DFine Ngcker18-65-7389 13:20-0500Body qcudbibyypc32.7 [degF]Wallace Prado MD Work Phone: [place] [address] DFine Tcrmpa30-92-3648 13:20-0500Body hfxjti14.88 kgWallace Prado MD Work Phone: 1(952)3-[address] [place], [place] 1421712-06-2024 13:20-0500Diastolic blood vjawvqev65 mm[Hg]Wallace Prado MD Work Phone: 1(063)913-[address] [place] [address] DFine Dgynkq45-77-5817 13:20-0500Heart rate 83 /minWallace Prado MD Work Phone: 1(856)431-[address] [place] [address] DFine Ysetvs51-59-9430 13:20-0500 Respiratory rate18 /minWallace Prado MD Work Phone: 1(030)770-92[facility] DFine Zdhvez06-81-5963 13:20-9155VdA4% (BldA) [Mass fraction]98 %Wallace Prado MD Work Phone: [facility]12-06-2024 13:20-0500Systolic blood xvhldkyy864 mm[Hg]Wallace Prado MD Work Phone: [facility]11-25-2024 10:14-0500Body kfnyen644.4 cmQuin Mas MD Work Phone: [place] [address]Xhlozqihbi19-48-1961 10:14-0500Body mass index (BMI) [Ratio]26.39 kg/e0Wwpisoamber Mas MD Work Phone: [place] [address]Qgjsepwtgt22-37-5788 10:14-0500Body mjranr12.72 kgQuin Mas MD Work Phone: [facility] CenterRouselhczi23-74-9365 10:14-0500Diastolic blood uxgrmfaa51 mm[Hg]Quin Mas MD Work Phone: [facility] CenterRfpdooilua82-95-3837 10:14-0500Systolic blood jjyrrrxq17 mm[Hg]Quin Mas MD Work Phone: [place] [address]Wckagsedbr12-54-0254 10:17-0500Body .9 [facility] [address] [place], [place] 6696711-14-2024 10:17-0500Body mass index (BMI) [Ratio] 29.13 kg/m2Pfo [address] [place], [place] 6696711-14-2024 10:17-0500Body mzoqzyvrbod10.9 [degF][address]11-14-2024 10:17-0500Body rqymcz07.43 kgPfo 1 [facility]11-14-2024 10:17-0500Diastolic blood xhgamxic05 mm[Hg][place] [address]-14-2024 10:17-0500Heart mzsr828 /minPfo [address] [place], [place] 6696711-14-2024 10:17-0500Respiratory rate18 /minPfo [address] [place], [place] 6696711-14-2024 10:17-7016UdC4% (BldA) [Mass fraction]96 %Pfo [address] [place], [place] 6696711-14-2024 10:17-0500Systolic blood apnvbivq162 mm[Hg]Pfo [address] [place], [place] 6696710-31-2024 10:10-0400Body xsybbj607.9 [facility] [address] [place], [place] 6696710-31-2024 10:10-0400Body mass index (BMI) [Ratio]28.21 kg/m2Pfo 1 [facility]10-31-2024 10:10-0400Body owhoagciwpb05.81 [degF]Pfo 1 [facility]10-31-2024 10:10-0400Body ojhhqb39.[address] [place], [place] 6696710-31-2024 10:10-0400Diastolic blood ydsxezbg98 mm[Hg]Pfo 1 [facility]10-31-2024 10:10-0400Heart rate91 /minPfo [address] [place], [place] 6696710-31-2024 10:10-0400Respiratory rate18 /minPfo [address] [place], [place] 6696710-31-2024 10:10-7272SgN6% (BldA) [Mass fraction]96 %Pfo [address] [place], [place] 6696710-31-2024 10:10-0400Systolic blood menbqrnd548 mm[Hg]Pfo [address] [place], [place] 6696710-18-2024 11:07-0400Body rfahnw548.9 [facility] [address] [place], [place] 6696710-18-2024 11:07-0400Body mass index (BMI) [Ratio]28.47 kg/m2Pfo 1 [facility]10-18-2024 11:07-0400Body krpfyaufiwh24.59 [degF]Pfo 1 [facility]10-18-2024 11:07-0400Body xekanv65.[address] [place], [place] 6696710-18-2024 11:07-0400Diastolic blood jzizluad46 mm[Hg]Pfo 1 [facility]10-18-2024 11:07-0400Heart rate85 /minPfo [address] [place], [place] 6696710-18-2024 11:07-2724DsG7% (BldA) [Mass fraction]98 %Pfo [address] [place], [place] 6696710-18-2024 11:07-0400Systolic blood nkmviopk041 mm[Hg]Pfo 1 [facility]10-17-2024 09:28-0400Body vmfypr226.9 Abel Prado MD Work Phone: [facility]10-17-2024 09:28-0400Body mass index (BMI) [Ratio]28.28 kg/q6WnhrmWallace Prado MD Work Phone: [address] [place], [place] 5983310-17-2024 09:28-0400Body pgzzvcinkrm76.1 [degF]Wallace Prado MD Work Phone: [address] [place], [place] 5983310-17-2024 09:28-0400Body kcdnyg95.62 kgWallace Prado MD Work Phone: [address] [place], [place] 5983310-17-2024 09:28-0400Diastolic blood otdgkojj27 mm[Hg]Wallace Prado MD Work Phone: [address] [place], [place] 5983310-17-2024 09:28-0400Heart rate 93 /Lakeshia Prado MD Work Phone: [facility]10-17-2024 09:28-0400 Respiratory rate20 /Lakeshia Prado MD Work Phone: [address] [place], [place] 5983310-17-2024 09:28-1248GlU4% (BldA) [Mass fraction]100 %Wallace Prado MD Work Phone: [facility]10-17-2024 09:28-0400Systolic blood mm[Hg]Wallace Prado MD Work Phone: [facility]10-03-2024 10:05-0400Body yoxerm506.[address] [place], [place] 6696710-03-2024 10:05-0400Body mass index (BMI) [Ratio]28.2 kg/m2Pfo [address] [place], [place] 6696710-03-2024 10:05-0400Body gxlnqnlocsp51.81 [degF]Pfo [address] [place], [place] 6696710-03-2024 10:05-0400Body ikremt49.[address] [place], [place] 6696710-03-2024 10:05-0400Diastolic blood czooqxqp57 mm[Hg]Pfo [address] [place], [place] 6696710-03-2024 10:05-0400Heart rate97 /minPfo [address] [place], [place] 6696710-03-2024 10:05-0400Respiratory rate20 /minPfo [address] [place], [place] 6696710-03-2024 10:05-4085UjP2% (BldA) [Mass fraction]96 %Pfo [address] [place], [place] 6696710-03-2024 10:05-0400Systolic blood aomnurwf117 mm[Hg] Pfo [address] [place], [place] 6696709-19-2024 10:02-0400Body fopnkv253.9 cmPfo 1 [facility]09-19-2024 10:02-0400Body mass index (BMI) [Ratio]28.2 kg/m2Pfo [address] [place], [place] 6696709-19-2024 10:02-0400Body xprsmdhzimd59.81 [degF]Pfo [address] [place], [place] 6696709-19-2024 10:02-0400Body elycjt44.35 kgPfo 1 [facility]09-19-2024 10:02-0400Diastolic blood irnwspew13 mm[Hg]Pfo [address] [place], [place] 6696709-19-2024 10:02-0400Heart rate98 /minPfo [address] [place], [place] 6696709-19-2024 10:02-0400Respiratory rate20 /minPfo [address] [place], [place] 6696709-19-2024 10:02-9729ZlL9% (BldA) [Mass fraction]94 %Pfo [address] [place], [place] 6696709-19-2024 10:02-0400Systolic blood hfqsfzvy295 mm[Hg]Pfo [address] [place], [place] 6696709-05-2024 09:35-0400Body akfcwf169.9 Abel Prado MD Work Phone: [facility]09-05-2024 09:35-0400Body mass index (BMI) [Ratio]28.34 kg/w2YikpdWallace Prado MD Work Phone: [facility]09-05-2024 09:35-0400Body yraynlkrjuu10.59 [degF]Centeno Johan MD Work Phone: [facility]09-05-2024 09:35-0400Body xhvlsy55.8 kgWallace Prado MD Work Phone: [facility]09-05-2024 09:35-0400Diastolic blood zfemilfz80 mm[Hg]Wallace Prado MD Work Phone: [facility]09-05-2024 09:35-0400Heart rate 112 /minWallace Prado MD Work Phone: [facility]09-05-2024 09:35-0400 Respiratory rate20 /minWallace Prado MD Work Phone: [facility]09-05-2024 09:35-7940UtX6% (BldA) [Mass fraction]95 %Wallace Prado MD Work Phone: [facility]09-05-2024 09:35-0400Systolic blood qijgtqnm427 mm[Hg]Wallace Prado MD Work Phone: [facility]08-22-2024 10:29-0400Body adsevh976.[address] [place], [place] 6696708-22-2024 10:29-0400Body mass index (BMI) [Ratio]28.07 kg/m2Pfo [address] [place], [place] 6696708-22-2024 10:29-0400Body iisdatuohiu64.01 [degF]Pfo [address] [place], [place] 6696708-22-2024 10:29-0400Body dgqxma32.[address] [place], [place] 6696708-22-2024 10:29-0400Diastolic blood zcctimie51 mm[Hg][address]08-22-2024 10:29-0400Heart rate89 /minP[address]08-22-2024 10:29-0400Respiratory rate20 /minfo [address] [place], [place] 6696708-22-2024 10:29-5996WcX3% (BldA) [Mass fraction]97 %[address]08-22-2024 10:29-0400Systolic blood ewxyxqtw695 mm[Hg] [facility] 10:00-0400Body utqiwv041.9 cmPfo 2 [facility]08-08-2024 10:00-0400Body mass index (BMI) [Ratio]26.98 kg/m2P[facility]08[facility]2024 10:00-0400Body dyvvlmgpqcq20.3 [degF][facility]24 10:00-0400Body .27 kgPfo 2 [facility]08-08-2024 10:00-0400Diastolic blood luudhlvq99 mm[Hg]Pfo [address] [place], [place] 3715308-08-2024 10:00-0400Heart nald315 /minPfo [address] [place], [place] 3715308-08-2024 10:00-0400Respiratory rate20 /minPfo [address] [place], [place] 3715308-08-2024 10:00-7924NrM4% (BldA) [Mass fraction]92 %Pfo [address] [place], [place] 3715308-08-2024 10:00-0400Systolic blood qvjyttgp666 mm[Hg]Pfo [address] [place], [place] 3715307-25-2024 09:41-0400Body wyqgvo122.9 Abel Prado MD Work Phone: [facility]07-25-2024 09:41-0400Body mass index (BMI) [Ratio]26.6 kg/e3HgdepWallace Prado MD Work Phone: [facility]07-25-2024 09:41-0400Body hsiayecwhvu90.91 [degF]Wallace Prado MD Work Phone: [facility]07-25-2024 09:41-0400Body kgWallace Prado MD Work Phone: [facility]07-25-2024 09:41-0400Diastolic blood hflwuugu00 mm[Hg]Wallace Prado MD Work Phone: [facility]07-25-2024 09:41-0400Heart rate 116 /minWallace Prado MD Work Phone: [facility]07-25-2024 09:41-0400 Respiratory rate20 /Lakeshia Prado MD Work Phone: [facility]07-25-2024 09:41-8660WjQ6% (BldA) [Mass fraction]94 %Wallace Prado MD Work Phone: [facility]07-25-2024 09:41-0400Systolic blood vwopapad14 mm[Hg]Wallace Prado MD Work Phone: [facility]06-27-2024 09:46-0400Body .[address] [place], [place] 6696706-27-2024 09:46-0400Body mass index (BMI) [Ratio]28.64 kg/m2fo [address] [place], [place] 6696706-27-2024 09:46-0400Body ojbrzalmpqb89.2 [degF]Pfo [address] [place], [place] 6696706-27-2024 09:46-0400Body ystqyl33.[address] [place], [place] 6696706-27-2024 09:46-0400Diastolic blood mm[Hg]Pfo [address] [place], [place] 6696706-27-2024 09:46-0400Heart xrqn546 /minPfo [address] [place], [place] 6696706-27-2024 09:46-0400Respiratory rate20 /minPfo [address] [place], [place] 6696706-27-2024 09:46-9541BwT8% (BldA) [Mass fraction]94 %Pfo [address] [place], [place] 6696706-27-2024 09:46-0400Systolic blood ywdodtkf991 mm[Hg] Pfo [address] [place], [place] 6696706-13-2024 09:50-0400Body ljbvoq081.4 Abel Prado MD Work Phone: [facility]06-13-2024 09:50-0400Body mass index (BMI) [Ratio]29.69 kg/l1ZwxrdWallace Prado MD Work Phone: [facility]06-13-2024 09:50-0400Body allooklryww01.01 [degF]Wallace Prado MD Work Phone: [facility] Kkhebp52-47-4465 09:50-0400Body .06 kgWallace Prado MD Work Phone: [facility] Qjkhvg82-59-6070 09:50-0400Diastolic blood shnmqdir15 mm[Hg]Wallace Prado MD Work Phone: [facility] Hviuxy99-73-8280 09:50-0400Heart rate 120 /minWallace Prado MD Work Phone: [facility] Ghouad14-50-1196 09:50-0400 Respiratory rate20 /minWallace Prado MD Work Phone: [facility] Thuzyn74-81-9205 09:50-7392FuC5% (BldA) [Mass fraction]93 %Wallace Prado MD Work Phone: [facility] Giyvjd86-89-8657 09:50-0400Systolic blood mm[Hg]Wallace Prado MD Work Phone: [facility] Xjpkfb06-38-5372 10:57-0400Body mass index (BMI) [Ratio]27.58 kg/q8AktpgzAlysa Major 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 Work Phone: [facility] Rbfelv24-65-3397 10:57-0400Body lbrxjdbhwyq31.1 [degF]Alysa Major 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 Work Phone: [facility] Ezuhxz36-15-4606 10:57-0400Body pbwnyk13.8 kgAlysa Major 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 Work Phone: [facility] HospitalComment on above:verbal from pt 08-27-2023 10:57-0400Diastolic blood mhgtltun04 mm[Hg]Alysa Major 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 Work Phone: [facility] Zqzmcc02-07-0746 10:57-0400Heart rate 112 /minAlysa Major 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 Work Phone: [facility] DFine Wjkgug45-48-0840 10:57-0400 Respiratory rate18 /minBontom Major 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 Work Phone: [facility]05-30-2024 10:57-1904RdW5% (BldA) [Mass fraction]98 %Alysa Major 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 Work Phone: [facility]05-30-2024 10:57-0400Systolic blood rejtnmyo92 mm[Hg]Alysa Major 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 Work Phone: [facility] DFine Uvmjki39-47-2720 09:18-0400Body .4 Abel Prado MD Work Phone: [facility] DFine Gzyiuv56-46-5605 09:18-0400Body mass index (BMI) [Ratio]26.21 kg/k1TmauzWallace Prado MD Work Phone: [facility]05-16-2024 09:18-0400Body ekkiwrskfxy14.39 [degF]Wallace Prado MD Work Phone: [facility] DFine Mrawpe43-08-0245 09:18-0400Body labrhm76.08 kgWallace Prado MD Work Phone: [facility] DFine Gfyzvi31-90-4506 09:18-0400Diastolic blood hqtefkye16 mm[Hg]Wallace Prado MD Work Phone: [facility] DFine Uhrohn14-48-0325 09:18-0400Heart rate 86 /minWallace Prado MD Work Phone: [facility] DFine Ggrnrn46-05-8218 09:18-0400 Respiratory rate24 /minWallace Prado MD Work Phone: [facility]05-16-2024 09:18-7879DlA8% (BldA) [Mass fraction]98 %Wallace Prado MD Work Phone: [facility]05-16-2024 09:18-0400Systolic blood mm[Hg]Wallace Prado MD Work Phone: [facility]05-03-2024 12:41-0400Body vviuavhgmff06.61 [degF][address]05-03-2024 12:41-0400 Diastolic blood pgedrtmn30 mm[Hg][address]05-03-2024 12:41-0400Heart xhzc993 /minPfo [address] [place], [place] 3846405-03-2024 12:41-0400 Respiratory rate18 /minPfo [address] [place], [place] 3846405-03-2024 12:41-3940QoF6% (BldA) [Mass fraction]90 %[address]05-03-2024 12:41-0400 Systolic blood mm[Hg][address]05-03-2024 10:44-0400Body .[address]05-03-2024 10:44-0400 Body mass index (BMI) [Ratio]27.58 kg/m[address]05-03-2024 10:44-0400Body [address]04-04-2024 04:27-0400 SaO2% (BldA) [Mass fraction]91 %[facility]oples HospitalComment on above:Performed By: #### ABG ####[facility] ([id number])[facility] [place] [address] Encounters Encounter DateEncounter TypeCare ProviderFacilityStart: 01-17-2025 End: 36-27-7294Ezbfhk pelvic examinationPfo [address] [place] [address] Leslie [facility] - Medical OncologyComment on above: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)Start: 01-17-2025 End: 76-84-7280utoruobcrxAxd Infusion Chair 1Dfelipe Nelson [facility] - Medical OncologyStart: 40-08-2363fesqhiwhssNPSGQ GRUBBUniversity Knapp Medical Centertart: 12-20-2024 End: 95-54-3314inldhkmgrcTWXS [facility] Centertart: 12-15-2024 End: 93-79-2748JguascVeeuv N Xia MD Work Phone: [facility] OncologyComment on above:Hodgkin lymphoma, unspecified Hodgkin lymphoma type, unspecified body region (CMS-HCC)Start: 12-09-2024 End: 70-76-5893Vpffmr pelvic examinationPfo 1[facility] Medical OncologyComment on above: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)Start: 12-08-2024 End: 97-62-0342vnhfbutqeyWro Infusion Chair 5DS[facility] OncologyStart: 12-07-2024 End: 84-49-8537Bhxwma pelvic examinationPfo 1DS[facility]ling [facility] Hospital OncologyComment on above: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); Hodgkin lymphoma, unspecified Hodgkin lymphoma type, unspecified body region (CMS-HCC); Essential (primary) hypertension; Fatigue, unspecified type; MalaiseStart: 12-07-2024 End: 13-38-9865pbxemtrvzcLwg Infusion Chair 1Dfelipe Nelson [facility] OncologyStart: 11-25-2024 End: 85-57-3096Yfsjrb pelvic examinationPfo 1Dkindred hospitallesia Nelson [facility] OncologyComment on above: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)Start: 11-25-2024 End: 23-44-5443rkjnhcfkqqYlw Infusion Chair 1Dfelipe Nelson [facility] OncologyStart: 11-24-2024 End: 13-24-8457Bzaeob pelvic examinationMarprincea Tiff LSWDSterling Surgical Hospital OncologyComment on above: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)Start: 11-24-2024 End: 69-00-3182geslshzmntIyh Infusion Chair 7Dfelipe Nelson [facility] OncologyStart: 11-23-2024 End: 08-65-5042Sbsrhg pelvic examinationPfo 1DS[facility]ling [facility] Hospital OncologyComment on above: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); Hodgkin lymphoma, unspecified Hodgkin lymphoma type, unspecified body region (CMS-HCC); Essential (primary) hypertension; Fatigue, unspecified type; MalaiseStart: 11-23-2024 End: 82-60-5641esublfgrsxTxp Infusion Chair 1Dfelipe Nelson [facility] OncologyStart: 11-11-2024 End: 70-09-3773Vzwivv pelvic examinationPfo 1D[facility] OncologyComment on above: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)Start: 11-11-2024 End: 99-01-6157pbjzylpmftXhv Infusion Chair 1Dfelipe Nelson [facility] OncologyStart: 11-10-2024 End: 28-95-7788Kjwtgz pelvic examinationPfo 7DS[facility] OncologyComment on above: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)Start: 11-10-2024 End: 88-81-3460fryvzydkjbDzc Infusion Chair 7Dfelipe Nelson [facility] Medical OncologyStart: 11-09-2024 End: 92-20-5123Dbcmvf pelvic examinationPfo 1Dfelipe Nelson [facility] - Medical OncologyComment on above: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); Hodgkin lymphoma, unspecified Hodgkin lymphoma type, unspecified body region (CMS-HCC); Essential (primary) hypertension; Fatigue, unspecified type; MalaiseStart: 11-09-2024 End: 66-11-9205cbpouvpkttSwd Infusion Chair 1Dfelipe Nelson [facility] Medical OncologyStart: 11-04-2024 End: 16-20-9268Btzfrw outpatient visit 40 minutesWallace Prado MD Work Phone: [facility] OncologyComment on above: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)Start: 10-28-2024 End: 29-78-9634wdsdmydnqpHni Infusion Chair 1Dutelesia Nelson [facility] Medical OncologyStart: 10-27-2024 End: 46-76-5693Tonknb pelvic examinationPfo 7Dfelipe Nelson [facility] Medical OncologyComment on above: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)Start: 10-27-2024 End: 63-46-7841oyvmkddtvcKhh Infusion Chair 7Dfelipe Nelson [place] [facility] OncologyStart: 10-26-2024 End: 07-20-1933Tygjhe pelvic examinationPfo 1Dfelipe Nelson [facility] OncologyComment on above: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); Hodgkin lymphoma, unspecified Hodgkin lymphoma type, unspecified body region (CMS-HCC); Essential (primary) hypertension; Fatigue, unspecified type; MalaiseStart: 10-26-2024 End: 21-13-6622ncamolpgulWzr Infusion Chair 1Dfelipe Nelson [facility] OncologyStart: 10-24-2024 End: 76-74-5092stpdafgnweRQTUSECleveland Clinic [facility] Start: 10-14-2024 End: 77-89-8289Ahqnod pelvic examinationPfo 1DRiverside [facility] Center Medical OncologyComment on above: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)Start: 10-14-2024 End: 75-14-9606paxmvgsxqjDfa Infusion Chair 1Dfelipe Nelson [facility] OncologyStart: 10-13-2024 End: 45-56-8471Zcjclo pelvic examinationPfo 7Dfelipe Nelson [facility] OncologyComment on above: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)Start: 10-13-2024 End: 04-16-9840btrslilynbNdv Infusion Chair 7Dfelipe Nelson [facility] OncologyStart: 10-12-2024 End: 19-28-0466Dysxaz pelvic examinationPfo 1DRiverside Medical Center Medical OncologyComment on above: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); Hodgkin lymphoma, unspecified Hodgkin lymphoma type, unspecified body region (CMS-HCC); Essential (primary) hypertension; Fatigue, unspecified type; MalaiseStart: 10-12-2024 End: 51-87-5110arhsbxcmtlAej Infusion Chair 1Dfelipe Nelson [facility] Medical OncologyStart: 09-30-2024 End: 11-28-7195ralnjrevszWci Infusion Chair 1Dfelipe Nelson [facility] OncologyStart: 09-30-2024 End: 35-02-6937Xyjejs pelvic examinationPfo 1D[facility] Leslie [facility] OncologyComment on above: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)Start: 09-29-2024 End: 49-69-4719Exoagv pelvic examinationPfo 7DSterling [facility] Hospital OncologyComment on above: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)Start: 09-29-2024 End: 25-80-2157glkqotqqtyJmt Infusion Chair AmandautePleasant [facility] Hospital OncologyStart: 09-28-2024 End: 71-99-2065Qzowno pelvic examinationWallace Prado MD Work Phone: [facility] OncologyComment on above: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); Hodgkin lymphoma, unspecified Hodgkin lymphoma type, unspecified body region (CMS-HCC); Essential (primary) hypertension; Fatigue, unspecified type; MalaiseStart: 09-28-2024 End: 12-01-1030jpjzheyrlwYvk Infusion Chair 1Dfelipe [facility] OncologyStart: 09-16-2024 End: 76-51-4031Colzry outpatient visit 25 minutesWallace Prado MD Work Phone: [facility] OncologyComment on above: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)Start: 09-13-2024 End: 35-13-3743SnhmxjOxvzwk Seger RNDorotdeshawn [facility] OncologyComment on above:Hodgkin lymphoma, unspecified Hodgkin lymphoma type, unspecified body region (CMS-HCC)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); Hodgkin lymphoma, unspecified Hodgkin lymphoma type, unspecified body region (CMS-HCC); Essential (primary) hypertension; Fatigue, unspecified type; MalaiseStart: 09-09-2024 End: 37-78-2734vgkthcrcvzNHDFXNaval Hospital Oaklandtart: 09-02-2024 End: 26-35-9259Iuqcot pelvic examinationPfo 1DRiverside Medical Center Medical OncologyComment on above: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)Start: 09-02-2024 End: 62-43-5181uwyzdflxbnOtc Infusion Chair 1DS[facility] OncologyStart: 09-01-2024 End: 17-82-1919Vfrcxd pelvic examinationPfo 7DS[facility] OncologyComment on above: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)Start: 09-01-2024 End: 00-29-7915rjxyvnpwqlScz Infusion Chair 7DS[facility] OncologyStart: 08-30-2024 End: 95-63-8591Yqzmwk pelvic examinationPfo 1DS[facility] OncologyComment on above: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); Hodgkin lymphoma, unspecified Hodgkin lymphoma type, unspecified body region (CMS-HCC); Essential (primary) hypertension; Fatigue, unspecified type; MalaiseStart: 08-30-2024 End: 64-62-2498betfggayiwHxm Infusion Chair 1DRiverside [facility] Center Medical OncologyStart: 08-24-2024 End: 08-76-6270Fsqijjvstcnpc procedureShannanoemi Patel RNDorotdeshawn Nelson [facility] OncologyStart: 08-23-2024 End: 35-37-3214Smsiut Shanda Prado MD Work Phone: Dojasmeetdeshawn Nelson [place] [facility] OncologyStart: 08-19-2024 End: 39-92-8738apqjaxccokJSOXEFKettering Health Troytart: 08-18-2024 End: 88-47-3062ynbkzeaufzKAGCXVKettering Health Troytart: 08-16-2024 End: 52-52-1771Pejmuj pelvic examinationPfo 1DS[facility]ling [facility] OncologyComment on above: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); Hodgkin lymphoma, unspecified Hodgkin lymphoma type, unspecified body region (CMS-HCC); Essential (primary) hypertension; Fatigue, unspecified type; MalaiseStart: 08-16-2024 End: 52-69-3026pqsdshzfvjGhx Infusion Chair 1DS[facility] OncologyStart: 08-05-2024 End: 25-47-5037Qdpwwb pelvic examinationPfo 1DS[facility] OncologyComment on above: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)Start: 08-05-2024 End: 24-46-3337oyzwvlqmgaMqg Infusion Chair 1DS[facility] OncologyStart: 08-04-2024 End: 00-95-8341Owprap WorkMarjuventino Tiff LSWDSterling Surgical Hospital OncologyComment on above: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)Start: 08-03-2024 End: 49-07-9844Qyxebc Shanda Prado MD Work Phone: [facility] Hospitaltart: 08-02-2024 End: 26-04-9893Tmflml pelvic examinationPfo 1DRiverside Medical Center Medical OncologyComment on above: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); Hodgkin lymphoma, unspecified Hodgkin lymphoma type, unspecified body region (CMS-HCC); Essential (primary) hypertension; Fatigue, unspecified type; MalaiseStart: 08-02-2024 End: 40-09-0587gzbyjrujjtYzj Infusion Chair 1DR[facility]ide [facility] Medical OncologyStart: 07-22-2024 End: 47-30-4882Bgvwvm pelvic examinationPfo 1DR[facility] Medical OncologyComment on above: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)Start: 07-22-2024 End: 07-49-8109zdvnvgzeauEol Infusion Chair 1DS[facility] OncologyStart: 07-21-2024 End: 42-93-0084Mvfqxv outpatient visit 25 minutesChanatalya Prado MD Work Phone: [facility] Medical OncologyComment on above: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); Hodgkin lymphoma, unspecified Hodgkin lymphoma type, unspecified body region (CMS-HCC)Start: 07-21-2024 End: 93-17-4808Lgufoz WorkMarjuventino Matthew LSWDOakdale Community Hospital - Medical OncologyComment on above: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)Start: 07-18-2024 End: 35-79-2339Uxkiqo pelvic examinationPfo 1DS[facility] OncologyComment on above: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); Hodgkin lymphoma, unspecified Hodgkin lymphoma type, unspecified body region (CMS-HCC); Essential (primary) hypertension; Fatigue, unspecified type; MalaiseStart: 07-18-2024 End: 59-19-3442llshliaayyIgh Infusion Chair 1DO[facility] - Medical OncologyStart: 81-70-7033gwcqqruatgQHNZBrown Memorial Hospitaltart: 07-07-2024 End: 81-55-7332Szkrnq outpatient visit 40 Edin Prado MD Work Phone: [facility] OncologyComment on above: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); Hodgkin lymphoma, unspecified Hodgkin lymphoma type, unspecified body region (CMS-HCC); Paroxysmal atrial fibrillation (CMS-HCC); Factor V Leiden mutation; History of splenectomyStart: 07-07-2024 End: 84-67-3256Dqkrrj OnlySonya ClarkeMunising Memorial Hospital - Medical OncologyComment on above:Hodgkin lymphoma, unspecified Hodgkin lymphoma type, unspecified body region (CMS-HCC) (Primary Dx); Hodgkin lymphoma of intrapelvic lymph nodes, unspecified Hodgkin lymphoma type (CMS-HCC); Encounter for monitoring cardiotoxic drug therapy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)Start: 07-06-2024 End: 79-74-2368Knahwp Shanda Prado MD Work Phone: [facility], [facility] Hospitaltart: 07-05-2024 End: 53-22-0699Undsnt pelvic examinationPfo 1DS[facility]ling [facility] OncologyComment on above: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 ([facility]-HCC); Essential (primary) hypertension; Fatigue, unspecified type; MalaiseStart: 06-15-2024 End: 90-56-0365idyobwdwgbVTHU [facility] Centertart: 06-13-2024 End: 96-89-5686IadobeIkvtc Meza RNNeela [facility] OncologyComment on above:Hodgkin lymphoma, unspecified Hodgkin lymphoma type, unspecified body region (CMS-HCC)Start: 06-10-2024 End: 65-24-8649Hxcgpi Shanda Prado MD Work Phone: Neela [facility] OncologyComment on above: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)Hodgkin lymphoma, unspecified Hodgkin lymphoma type, unspecified body region ([facility]-HCC)Start: 06-03-2024 End: 84-54-3392Vhdagcunvbslt procedureAngenoemi ClarkeSurgical Specialty Center OncologyStart: 06-02-2024 End: 37-57-4467Zfxqkomzbgtov procedureCandakirsty Reyes RNAcadian Medical Center OncologyStart: 06-02-2024 End: 04-82-5977Pcmmkg pelvic examinationPfo 1DoroPleasant Valley Hospital OncologyComment on above:Screening for prostate cancer (Primary Dx); 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)Start: 06-02-2024 End: 75-36-6038Smsupz outpatient visit 40 Edin Prado MD Work Phone: Neela Nelson [facility] Medical OncologyComment on above: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)Start: 06-02-2024 End: 92-14-8072qyqcvamtgrBiu Infusion Chair 1DoroPleasant Valley Hospital OncologyStart: 05-31-2024 End: 20-97-7219Vgunmn Candido Mas MD Work Phone: [facility] CI ENTStart: 05-31-2024 End: 07-44-8504Dwvfzl flowsheetQuin Mas MD Work Phone: noms CI ENTStart: 05-31-2024 End: 26-72-6071Vakvvn outpatient visit 15 minutesQuin Mas MD Work Phone: noms CI ENTComment on above:Recurrent epistaxis (Primary Dx)Start: 05-31-2024 End: 86-21-8856ldbekmnypuPZNBDE H TIMMISNot AvailableStart: 05-27-2024 End: 15-52-4106sheyxcgrsdACXBLParma Community General Hospitaltart: 05-25-2024 End: 36-55-5854estsgewquvLGSMRPOhio Valley Hospital Start: 05-04-2024 End: 09-77-3467Mejosdpmghjjl procedureRemington Amanda Jackman [facility] - Medical OncologyStart: 04-28-2024 End: 07-02-7301Lqgxdo OnlyCritical Access Hospitaldelphine Jackman [facility] - Medical OncologyComment on above:Frequent nosebleeds (Primary Dx)Start: 04-27-2024 End: 75-11-0963Ksvgza flowsheetQuin Mas MD Work Phone: noms CI ENTStart: 04-27-2024 End: 66-09-4871Rkoryz flowsBlanca Mas MD Work Phone: NOZC CI ENTStart: 04-27-2024 End: 76-96-8302Irxfdj outpatient visit 25 minutesQuin Mas MD Work Phone: noms CI ENTComment on above:Recurrent epistaxis (Primary Dx); Anticoagulated; Chronic rhinitisStart: 04-27-2024 End: 52-92-9849jxmcmxfnplHBSPAL H TIMMISNot AvailableStart: 04-25-2024 End: 99-24-7681Bhgmqemox encounterQuin Mas MD Work Phone: noms CI ENTStart: 04-22-2024 End: 26-82-6020Dazmnspxc encounterHiamber Mas MD Work Phone: noms CI ENTComment on above:Epistaxis (Nose Bleed) Start: 04-22-2024 End: 73-56-8806Cnkwrsjzb department patient visitJohn ParenteFacility:FTMCStart: 45-76-8318rlnvycikxkPCBCProMedica Toledo Hospitaltart: 04-07-2024 End: 70-97-9654Kwluqo outpatient visit 25 minutesWallace Prado MD Work Phone: Neela Nelson [facility] - Medical OncologyComment on above:Hodgkin lymphoma, unspecified Hodgkin lymphoma type, unspecified body region (CMS-HCC) (Primary Dx); 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 RossFacility:[facility] BellevueStart: 03-10-2024 End: 89-39-5864gqvwqtruxrFEANA N XIAProMedica Aberdeen HospitalStart: 03-09-2024 End: 29-30-2486psjktmrydsHSVEDS E ROSSProMedica [facility] Medical Centertart: 03-04-2024 End: 02-83-1047Uunrxr outpatient visit 40 minutesWallace Prado MD Work Phone: Neela Nelson [facility] OncologyComment on above:Hodgkin lymphoma, unspecified Hodgkin lymphoma type, unspecified body region (CMS-HCC) (Primary Dx)Start: 03-04-2024 End: 11-15-1439Pestmb Roseanne Jackman [facility] - Medical OncologyComment on above:Hodgkin lymphoma of intrapelvic lymph nodes, unspecified Hodgkin lymphoma type (CMS-HCC) (Primary Dx); Bone lesionStart: 02-22-2024 End: 57-71-0337awbpoouxtyVQVFIM [facility] Start: 02-22-2024 End: 53-55-1372Jmbttj Candido Mas MD Work Phone: noms [facility]ITALKStart: 02-22-2024 End: 28-63-5426Diuqyj Candido Mas MD Work Phone: [facility]tart: 02-22-2024 End: 27-79-5001cesvjvkvgcRRCUKO H TIMMISNot AvailableStart: 02-22-2024 End: 90-19-7580Mqbqkb outpatient new 45 minutesQuin Mas MD Work Phone: noms E[facility] HOSPITALomment on above:Internal nasal lesion (Primary Dx); Anticoagulated; Recurrent epistaxisStart: 02-19-2024 End: 63-29-0037jsntixjlozQYQRFParma Community General Hospitaltart: 02-14-2024 End: 97-37-6229Inecsjpgl department patient visitSDayton VA Medical Centertart: 02-11-2024 End: 50-71-4850Kavrmf pelvic examinationGala Douglasslesia Nelson [place] [facility] - Medical OncologyComment on above: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 ([facility]-HCC) (Primary Dx)Start: 02-11-2024 End: 45-54-7883kcsvwbbdyaYfg Infusion Chair Sherine Nelson [place] [facility] - Medical OncologyStart: 02-09-2024 End: 60-42-5904Ufoufuhqdxfjx procedureElizabeth [facility] Medical OncologyStart: 02-09-2024 End: 03-05-6716jvifqxasruNHWULParma Community General Hospitaltart: 02-04-2024 End: 02-11-3516pdfaywakkaNN Antoine HobbsFacility:FT FM BellevueStart: 01-28-2024 End: 41-54-2658Pyenxe pelvic examinationPfo felipe Nelson [facility] OncologyComment on above: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)Start: 01-28-2024 End: 77-86-6532bwktcndgaqOvh Infusion Bed 1Dfelipe Nelson [place] [facility] OncologyStart: 01-26-2024 End: 32-88-6698pbawkykavlSTYTPSaint Louise Regional Hospitaltart: 01-18-2024 End: 11-41-2435Lmiabovbbemge procedureCandakirsty Clarkedeshawn Nelson [facility] OncologyStart: 01-15-2024 End: 63-83-9456Iyejuiess encounterPamikael Goodenjasmeet Leslie [facility] OncologyStart: 01-15-2024 End: 20-74-2949oqqbfysswtEks Infusion Bed 1Dfelipe Nelson [facility] OncologyStart: 01-15-2024 End: 59-10-6644Hvkssd pelvic examinationPfo 1DSterling [facility] OncologyComment on above: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)Start: 01-14-2024 End: 30-02-9176Phqwbetxawont procedureFrank Arellanoeduar Nelson [facility] OncologyStart: 01-14-2024 End: 75-62-6748Xwjnff outpatient visit 25 Edin Prado MD Work Phone: [facility] OncologyComment on above:Hodgkin lymphoma, unspecified Hodgkin lymphoma type, unspecified body region (CMS-HCC) (Primary Dx); 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)Start: 2023 End: 02-32-7379taixebqczwLxz Infusion Bed 1Dfelipe Nelson [facility] OncologyStart: 2023 End: 51-93-7522Atcxgp pelvic examinationPfo [address] [place] [address] OncologyComment on above: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)Start: 12-17-2023 End: 04-08-5007gwigqevknsNrb Infusion Bed 1Dfelipe Nelson [facility] OncologyStart: 12-17-2023 End: 63-02-2143Qaviqq pelvic examinationGala Tiffluz marina JAYfelipe Nelson [facility] OncologyComment on above: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)Start: 12-03-2023 End: 14-40-3677Ktsdkzvxjxuwp procedureCandakirsty Clarkedeshawn Nelson [facility] OncologyStart: 12-03-2023 End: 09-71-5244jcyspdetvqDyf Infusion Chair 4Dfelipe Nelson [facility] OncologyStart: 12-03-2023 End: 33-16-8911Ghcafp pelvic examinationPfo 4DSterling [facility] Hospital OncologyComment on above: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)Start: 12-03-2023 End: 38-09-1085Hgjusv outpatient visit 40 minutesWallace Prado MD Work Phone: [facility] OncologyComment on above:Hodgkin lymphoma, unspecified Hodgkin lymphoma type, unspecified body region (CMS-HCC) (Primary Dx)Start: 11-19-2023 End: 87-68-2061Bfpwxs WorkGala EISENBERGChandrakant Nelson [facility] OncologyComment on above: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)Start: 11-05-2023 End: 66-26-3583Mxfyct WorkGala EISENBERGChandrakant [facility] OncologyComment on above: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)Start: 10-22-2023 End: 76-91-5522Xeerabaycvlnf procedureCancristal Clarkedeshawn Nelson [facility] OncologyStart: 10-22-2023 End: 70-17-4936ejqvvdksfzHvi Infusion Chair 4Dfelipe Nelson [place] [facility] OncologyStart: 10-22-2023 End: 25-09-9629Pmznnw pelvic examinationPfo 4Dfelipe Nelson [place] [facility] OncologyComment on above: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 RossFacility:[facility]vueStart: 10-14-2023 End: 64-02-1590CvbizhRccefhKatty Clarkedeshawn Nelson [facility] OncologyStart: 10-13-2023 End: 95-58-5631momjolfneeDA [facility] RossFacility:[facility] BellevueStart: 10-08-2023 End: 63-77-7963Bjejoyaggxpbt procedureNahomy Patel [facility] Oncology - Radiation OncologyStart: 10-07-2023 End: 20-80-4035Gnbtlfzukyaxy procedureNahomy Clarkedeshawn Nelson [place] [facility] Medical OncologyStart: 10-02-2023 End: 40-97-2433vtrfxscnixWtpweno [place] [facility] [address] Start: 10-02-2023 End: 96-05-5348Jcchoiqiz encounterDolores NewmanProMedica Call Center - Huma RdComment on above:DiarrheaStart: 09-30-2023 End: 13-75-2700vvnzlisrxuDhkgtqih Casimiro [facility] [address] Start: 09-24-2023 End: 72-02-3888glsdryemebIva Infusion Bed 1Dfelipe Nelson [place] [facility] Medical OncologyStart: 09-24-2023 End: 59-00-4409Mmvwdu pelvic examinationPfo 1DS[facility] OncologyComment on above: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)Start: 07-31-2023 End: 37-01-7163zruwuempszCws Infusion Chair 5DS[facility] OncologyStart: 07-30-2023 End: 99-60-8997Azvdhpyvipltg procedureNahomy Clarkedeshawn [facility] OncologyStart: 07-29-2023 End: 63-73-0898Ynpfwc Roseanne Arellanoeduar [facility] OncologyStart: 07-28-2023 End: 33-18-3897Olejkj Yuniorca Amanda ClarkeMackinac Straits Hospital Medical OncologyComment on above: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)Start: 07-24-2023 End: 99-15-0298Fnxzzx Shanda Prado MD Work Phone: [facility] OncologyComment on above:Lymphoma, unspecified body region, unspecified lymphoma type (CMS-HCC) (Primary Dx); 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) Start: 07-22-2023 End: 84-23-6490Fquwayqjc encounterBeJFK Johnson Rehabilitation Institute Physicians Hematology/Oncology AssociatesComment on above:Results (Updated that final results are not back from [facility] yet, )Start: 07-21-2023 End: 60-77-0172Dzkogilqrxwim procedureNahomy Arellanoeduar [facility] OncologyComment on above:Lymphoma, unspecified body region, unspecified lymphoma type (CMS-HCC) (Primary Dx)Start: 07-21-2023 End: 37-86-1506ohofrixywcWGMCDDetwiler Memorial Hospitaltart: 07-17-2023 End: 06-23-4548Velqrqnko encounterPamikael [facility] - Medical OncologyStart: 07-17-2023 End: 53-81-7595Bxopfnqtey and management of inpatientPAJ LUIS Sargentedica Terrell HospitalStart: 07-16-2023 End: 95-92-9572Vhlxvm OnlyGala Trotter 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 Work Phone: [facility] Comment on above:Lymphoma, unspecified body region, unspecified lymphoma type ([facility]-HCC) (Primary Dx)Start: 07-13-2023 End: 40-68-2076Xjwvvzhno encounterBeprince CoreaNorthcrest Medical Center Physicians Cardiology Start: 07-10-2023 End: 04-76-1534Ignlbremil and management of inpatientQUNFANG LIProMedica Hilger HospitalStart: 70-95-6174pprxxijgwgKMLLQGNorthern Westchester Hospital Ambulatory [facility] Start: 83-58-4088eutvdhchzfTGDWKLNorthern Westchester Hospital Ambulatory PPGStart: 07-08-2023 End: 31-78-6409Qxvgyznkzo and management of inpatientRUPESPankaj BARKERTELProMedica Hilger HospitalStart: 07-06-2023 End: 32-22-7755Yjpoudddkb and management of inpatientGALA CHENEYEProMedica Hilger HospitalStart: 07-04-2023 End: 86-24-1152Tzblvfkbqq and management of inpatientIMAD Mag HARIRIProMedica Hilger HospitalStart: 07-03-2023 End: 86-24-1127Lcckcawhiz and management of inpatientEMILE KLADAProMedica Hilger HospitalStart: 07-02-2023 End: 47-11-6348Zblqpnysbj and management of inpatientBRYANNA LAURO JAYProMedica Hilger HospitalStart: 71-00-3739yipiqdztxmJV Samuel RossFacility:FT FM [place] Start: 06-30-2023 End: 68-59-6770Axnmrjhvff and management of inpatientAHMED KING ROSENHYELProMedica Hilger HospitalStart: 06-29-2023 End: 64-23-7417Nfmwtwxgpo and management of inpatientSSID Hathaway ELSTONProMedica Hilger HospitalStart: 06-27-2023 End: 42-48-4559Xpahtnuytw and management of inpatientFARAZ BADARProMedica Hilger HospitalStart: 06-26-2023 End: 25-49-9972Oqlouhmywn and management of inpatientAMNA M AL-TKRITProMedica Hilger HospitalStart: 06-26-2023 End: 84-84-5955Pzbbnarvun and management of inpatientFADI A SAFIProMedica Hilger HospitalStart: 06-25-2023 End: 06-86-8943mafoywjcgeXRYIOL E ROSSAccess Hospital Daytonca [facility] Ambulatory PPGStart: 06-25-2023 End: 80-94-3268Zrmavsjdko and management of inpatientAVIJIT DASProMedica Hilger HospitalStart: 06-04-2023 End: 24-78-3861Kok Drop offSsharon Hobbs [facility] Start: 06-04-2023 End: 71-76-6773tsfxfmtwbtDU Antoine HobbsFacility:FTMCStart: 02-05-2022 End: 61-62-5082jyflposquaPDMXHVE BOESFacility:B0Nudkg: 09-20-2020 End: 82-56-4788Ixuzabs encounter procedureM Felipe Frank Work Phone: [phone]-Zaxkjkxpc CheckStart: 05-19-2017 End: 74-70-0641GveokumtyaDRSVAFE PHYSICIANFacility:UTMCStart: 04-29-2017 End: 11-13-6099IlujvdjizdZJMUOOSB UNKNOWNFacility:UTMCStart: 04-16-2017 End: 96-42-2893HjzfozxjvbKXUHBSMM SELFFacility:UTMCStart: 01-28-2017 End: 91-79-5074GilafqihxlLUVHDSUR SELFFacility:UTMCStart: 12-12-2016 End: 01-21-0232Deceorjzqj and management of inpatientLAURA BERNARDO LUCAS Facility:[facility] Procedures DateProcedureProcedure DetailPerforming ClinicianStart: 92-90-7872Xtjfpddyqzqkc metabolic panelChanatalya Prado MD Work Phone: Start: 86-40-2810Zsfvnqfxtahen metabolic panelChanatalya Prado MD Work Phone: Start: 68-52-5947Qgdrhxrgfwdsx metabolic panelChanatalya Prado MD Work Phone: Start: 55-93-9046Oidcdjbyrtnoh metabolic panelWallace Prado MD Work Phone: Start: 09-76-9083Gbfpwjsnnhtec metabolic panelChanatalya Prado MD Work Phone: Start: 71-80-7878Hloqzkxajvaxu metabolic panelChanatalya Prado MD Work Phone: Start: 45-41-1836Bhvvejtniqkgh metabolic panelChanatalya Prado MD Work Phone: Start: 39-85-0521Eifeexdagbasz metabolic panelChang Luz Marina Prado MD Work Phone: Start: 46-87-6830Aeujmxnzdncly metabolic panelChanatalya Prado MD Work Phone: Start: 87-03-9370Xafxqrthavbfd metabolic panelChanatalya Prado MD Work Phone: Start: 07-07-2024H/O splenectomyHistory of splenectomy Wallace Prado MD Work Phone: Start: 89-33-8425YcpeyjwcordbBzozsnlicfhxMMJPY XIA Start: 02-83-3920Trilvljmvrtqp metabolic panelChanatalya Prado MD Work Phone: Start: 05-71-0477Pyskjb-up visitFollow-upWALLACE PRADO Start: 49-41-9662Evufn i surg pathology gross examination onlyNot In System Ref ProvStart: 10-04-7327Jdumusz of coronary artery bypass graftingHistory of coronary artery bypass surgeryHiamber Mas MD Work Phone: Start: 32-84-6134CqfacsbcfdxFdqfzi Ross Start: 38-51-9250JSSRCZ 1 COR ART FROM AORTA WITH AUTOL VN, OPEN APPROACHTHOMAS A SCHWANNStart: 41-26-8827XYRPVI 1 COR ART FROM L INT MAMMARY, OPEN APPROACHTHOMAS A SCHWANNStart: 06-75-6890AEIHSA 3 COR ART FROM AORTA WITH AUTOL ART, OPEN APPROACHTHOMAS A SCHWANNStart: 70-95-0200BJSKRCYX OF LEFT RADIAL ARTERY, OPEN APPROACHTHOMAS A SCHWANNStart: 64-77-5149RKQIFHRP OF LEFT SAPHENOUS VEIN, PERC ENDO APPROACHTHOMAS A SCHWANNStart: 52-36-9032CCOZYBTK OF RIGHT RADIAL ARTERY, OPEN APPROACHTHOMAS A SCHWANNStart: 71-41-6343GNJZLB INFUSION DEV IN R INT JUGULAR VEIN, PERCALI M HASSANStart: 31-05-6505KRFUGWQAQ OF INFUSION DEV INTO L FEMOR VEIN, PERC APPROACHALI M HASSANStart: 12-19-2016 MEASURE OF ARTERIAL SATURATION, PERIPHERAL, PERC APPROACHLAURA AM MURPHYStart: 30-66-6461Iqppijmdxro of Cardiac Output, ContinuousTHOMAS A SCHWANNStart: 02-78-6893GQNMUXEABCQJJGK OF RIGHT AND LEFT HEART, TRANSESOPHAGEALALI M RAFAEL Start: 86-16-3347Sjupsvebnkcnrdx of Right Jugular Veins, GuidanceALI M RAFAEL Start: 81-97-2935FPEFH RADIOGRAPHY OF MULT COR ART USING OTH CONTRASTRAALEX GUPTAStart: 29-28-3382UPAAMPKBD OF MONITOR DEV INTO R PULM ART, PERC APPROACH FRANCISCO V MOUKARBELStart: 95-61-8880XUUANHC OF CARDIAC SAMPL \T\ PRESSURE, R HEART, PERC APPROACHGEORGE V MOUKARBELCholecystectomySajoe Yfn Comment on above:2005Coronary artery bypass grafts x 5 Antoine Hobbs History of coronary artery bypass graftingHx of CABG Antoine Hobbs Splenectomyjoe Yfn Comment on above:1982 Plan of Treatment DateCare ActivityDetailAuthorStart: 53-96-0515Iiaah BMI ScreeningAdult BMI ScreeningBrown Memorial Hospital SystemStart: 11-86-5301Ifndb BMI ScreeningAdult BMI ScreeningProMedica Health SystemStart: 23-63-1855Bxkg Risk ScreeningFall Risk ScreeningProMedica Health SystemStart: 28-62-0745Zjxpdly ScreeningTobacco ScreeningProMedica Health SystemStart: 77-30-7453Jmxwz BMI ScreeningAdult BMI ScreeningProMedica Health SystemStart: 53-93-2807Qwjuq BMI ScreeningAdult BMI ScreeningProMedica Health SystemStart: 77-60-2806Dljr Risk ScreeningFall Risk ScreeningProMedica Health SystemStart: 08-66-0409Ehmid BMI ScreeningAdult BMI ScreeningProMedica Health SystemStart: 83-54-5512Swkaaav ScreeningTobacco ScreeningProMedica Health SystemStart: 29-29-1767Hxuyw BMI ScreeningAdult BMI ScreeningProMedica Health SystemStart: 68-60-9619Povzr BMI ScreeningAdult BMI ScreeningProMedica Health SystemStart: 95-29-7926Wrgjyvd ScreeningTobacco ScreeningProMedica Health SystemStart: 88-17-1060Jrant BMI ScreeningAdult BMI ScreeningProMedica Health SystemStart: 57-54-4509Wzsd Risk ScreeningFall Risk ScreeningProMedica Health SystemStart: 03-16-7706Aaxavsy ScreeningTobacco ScreeningProMedica Health SystemStart: 81-27-9723Yhsjz BMI ScreeningAdult BMI ScreeningProMedica Health SystemStart: 85-59-4539Vezroml ScreeningTobacco ScreeningProMedica Health SystemStart: 23-96-5468Rfyzo BMI ScreeningAdult BMI ScreeningProMedica Health SystemStart: 84-00-8789Yjwz Risk ScreeningFall Risk ScreeningProMedica Health SystemStart: 82-45-3340Nxmqvao ScreeningTobacco ScreeningProMedica Health SystemStart: 64-43-8427Bcxcy BMI ScreeningAdult BMI ScreeningProMedica Health SystemStart: 02-74-6318Purmouj ScreeningTobacco ScreeningProMedica Health SystemStart: 01-61-6411Jlkkz BMI ScreeningAdult BMI ScreeningProMedica Health SystemStart: 35-13-2015Hkmecat ScreeningTobacco ScreeningProMedica Health SystemStart: 45-58-8477Akefy BMI ScreeningAdult BMI ScreeningProMedica Health SystemStart: 07-31-0266Rmllwgo ScreeningTobacco ScreeningProMedica Health SystemStart: 92-05-0820Qjjgm BMI ScreeningAdult BMI ScreeningProMedica Health SystemStart: 51-99-9027Tiwnlqf ScreeningTobacco ScreeningProMedica Health SystemStart: 51-39-5998Abvmm BMI ScreeningAdult BMI ScreeningProMedica Health SystemStart: 51-09-2963Iscf Risk ScreeningFall Risk ScreeningProMedica Health SystemStart: 84-76-2450Ndaneco ScreeningTobacco ScreeningProMedica Health SystemStart: 21-38-6884Efqqh BMI ScreeningAdult BMI ScreeningProMedica Health SystemStart: 26-58-6523Wvwdnuw ScreeningTobacco ScreeningProMedica Health SystemStart: 47-83-1252Cexlg BMI ScreeningAdult BMI ScreeningProMedica Health SystemStart: 49-91-6796Hpwtvxv ScreeningTobacco ScreeningProMedica Health SystemStart: 85-79-1882Yeifv BMI ScreeningAdult BMI ScreeningProMedica Health SystemStart: 07-86-3258Jadpqke ScreeningTobacco ScreeningProMedica Health SystemStart: 81-07-5279Xqwjs BMI ScreeningAdult BMI ScreeningProMedica Health SystemStart: 12-27-2473Lchelne ScreeningTobacco ScreeningProMedica Health SystemStart: 19-65-6281Mimvb BMI ScreeningAdult BMI ScreeningProMedica Health SystemStart: 37-17-3846Lduxvhy ScreeningTobacco ScreeningProMedica Health SystemStart: 10-17-9079Gswbg BMI ScreeningAdult BMI ScreeningProMedica Health SystemStart: 21-11-8449Pbpg Risk ScreeningFall Risk ScreeningProMedica Health SystemStart: 60-67-7964Iqssozn ScreeningTobacco ScreeningProMedica Health SystemStart: 70-76-4809Sgasq BMI ScreeningAdult BMI ScreeningProMedica Health SystemStart: 59-76-6440Eyrhy BMI ScreeningAdult BMI ScreeningProMedica Health SystemStart: 25-96-1515Cxifevh ScreeningTobacco ScreeningProMedica Health SystemStart: 04-13-2025 End: 77-92-8360Rhmluao encounter xpwblmkyl44/15/2026 2:00 PM EST Office Visit [facility] [address] [place], [place] [phone] Lynnette Abbott MD [address], [place], [place] [id number] [facility] MedicineStart: 00-93-2529Kahan BMI ScreeningAdult BMI ScreeningProBlanchard Valley Health [facility] SystemStart: 77-12-5468Yffwwbe ScreeningTobacco ScreeningProBlanchard Valley Health System [facility] SystemStart: 04-06-2025 End: 51-21-1448Zwcbpiv encounter ightyupsn87/08/2026 11:00 AM EST Office Visit Neela Lennon [facility] - Medical Oncology [address] [place] [phone] Wallace Prado MD [address] [facility] [address] [place] [address] Neela Lennon [facility] - Medical OncologyStart: 03-24-2025 End: 90-96-2895HR Skull base to mid-thighPET CT skull to thigh Imaging Routine 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) Expected: 03/24/2025, Expires: 12/08/2025[facility] Work Phone: Comment on above:Expected: 03/24/2025, Expires: 12/08/2025Start: 03-17-2025 End: 98-41-3823pltaavwepn65/19/2025 9:30 AM EST Infusion Neela Lennon [facility] - Medical Oncology [address] [place] [phone] Neela Lennon [facility] - Medical OncologyStart: 03-17-2025 End: 31-34-3572Jiwnptn encounter ratduxdpx51/19/2025 9:00 AM EST Appointment [facility] Neela Nelson [place] [facility] - Pet Imaging [address] [place] [address] [phone] Neela Lennon [facility] - Pet Imaging Start: 03-13-2025 End: 99-23-9412Suhveyhb for biopsy of Bone marrowIR biopsy and aspiration bone marrow single or multiple sites Imaging Routine 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) Expected: 03/13/2025, Expires: 12/08/2025ProAdena Fayette Medical CenterComment on above:Expected: 03/13/2025, Expires: 12/08/2025Start: 03-13-2025 End: 17-63-2160Esktugsp PathologySurgical Pathology Pathology and Cytology Routine Nodular sclerosis Hodgkin lymphoma of intrapelviclymph nodes (CMS-HCC) Expected: 03/13/2025, Expires: 12/08/2025[facility] HospitalComment on above:Expected: 03/13/2025, Expires: 12/08/2025Start: 03-13-2025 End: 19-81-3880Ygvevow encounter /15/2025 10:00 AM EST Appointment [facility] Interventional Radiology [address] [place] [phone] Wallace Prado MD [address] [facility] [address] [place] [address] [phone] (Work) [facility] Interventional RadiologyStart: 27-60-6320Uomc Risk ScreeningFall Risk Screening [facility] SystemStart: 31-46-0883Mqtul BMI ScreeningAdult BMI Screening [facility] SystemStart: 06-17-9973Mhxuo BMI ScreeningAdult BMI Screening [facility] SystemStart: 72-87-6637Nvpp Risk ScreeningFall Risk Screening [facility]: 28-32-5404Ezkhkio ScreeningTobacco Screening [facility] SystemStart: 80-88-4047Ucitl BMI ScreeningAdult BMI Screening [facility] SystemStart: 01-17-2025 End: 09-20-1616sobprzuryv31/21/2025 1:30 PM EDT Infusion Neela Lennon [facility] - Medical Oncology [address] [place] [phone] Neela Lennon [facility] Medical OncologyStart: 26-86-5613Rcacq BMI ScreeningAdult BMI ScreeningProBlanchard Valley Health System SystemStart: 34-10-3791Aznhh BMI ScreeningAdult BMI ScreeningProBlanchard Valley Health System SystemStart: 52-30-8935Stzkgzt ScreeningTobacco ScreeningProBlanchard Valley Health System SystemStart: 82-94-3774Gajlv BMI ScreeningAdult BMI ScreeningBrown Memorial Hospital SystemStart: 11-52-9749Rumtgej ScreeningTobacco ScreeningBrown Memorial Hospital SystemStart: 12-09-2024 End: 28-57-3402qxorezkscd36/12/2025 3:00 PM EDT Infusion Neela Lennon [facility] - Medical Oncology [address] [place] [phone] Neela Lennon [facility] Medical OncologyStart: 12-08-2024 End: 61-14-4517gxqnxedlle85/11/2025 11:30 AM EDT Infusion Neela Lennon [facility] - Medical Oncology [address] [place] [phone] Neela Lennon [facility] Medical OncologyStart: 12-08-2024 End: 87-40-2075Rzxrjfb encounter pyzdjhzyf10/11/2025 11:15 AM EDT Office Visit Neela Lennon [facility] - Medical Oncology [address] [place] [phone] Wallace Prado MD [address] [place] [address] [address] [place] [address] Neela Lennon [facility] - Medical OncologyStart: 12-07-2024 End: 78-18-3419cvgtuxbnoo85/10/2025 11:00 AM EDT Infusion Neelainocente Lennon [facility] - Medical Oncology [address] [place] [phone] Neela Lennon [facility] Medical OncologyStart: 79-47-5270Zexdj BMI ScreeningAdult BMI ScreeningProBlanchard Valley Health System SystemStart: 91-20-6371MMGWV-19 Vaccine (8 - Pfizer risk season)COVID-19 Vaccine (8 - Pfizer risk season)[facility] SystemStart: 83-12-5105Tlmirdxoc vaccinationInfluenza VaccineProBlanchard Valley Health System SystemStart: 11-25-2024 End: 11-84-6579cftgyvgxfp71/29/2025 2:30 PM EDT Infusion Neela Lennon [facility] - Medical Oncology [address] [place] [phone] Neela Lennon [facility] Medical OncologyStart: 11-24-2024 End: 20-69-7896gyelbfermn58/28/2025 8:30 AM EDT Infusion Neela Lennon [facility] Medical Oncology [address] [place] [phone] Neela Lennon [facility] Medical OncologyStart: 11-23-2024 End: 05-19-2041qqnbabnpwz61/27/2025 11:00 AM EDT Infusion Neelainocente Lennon [facility] Medical Oncology [address] [place] [phone] Neela L Saji [facility] Medical OncologyStart: 77-24-2036Kcdmppb ScreeningTobacco ScreeningBrown Memorial Hospital SystemStart: 11-11-2024 End: 94-87-6520ccvpzewdwp97/15/2025 2:00 PM EDT Infusion Neelainocente Moreaun [facility] - Medical Oncology [address] [place] [phone] Neela L Saji [facility] Medical OncologyStart: 11-10-2024 End: 29-92-1237fowksvfifa74/14/2025 10:00 AM EDT Infusion Neela L Saji [facility] - Medical Oncology [address] [place] [phone] Neela Lennon [facility] - Medical OncologyStart: 11-09-2024 End: 75-04-8919lahbmlybpy28/13/2025 11:30 AM EDT Infusion Neela Lennon [facility] - Medical Oncology [address] [place] [phone] Neela Lennon [facility] Medical OncologyStart: 65-73-7068Duemu BMI ScreeningAdult BMI ScreeningProBlanchard Valley Health System SystemStart: 34-27-2532Svufnlb ScreeningTobacco ScreeningProBlanchard Valley Health System SystemStart: 11-04-2024 End: 28-52-1699Szectkm encounter pvykansmp02/08/2025 8:45 AM EDT Office Visit Neela Lennon [facility] - Medical Oncology [address] [place] [phone] Wallace Prado MD [address] [place] [address] Neela Lennon [facility] Medical OncologyStart: 10-28-2024 End: 96-48-2077friaeparen60/01/2025 12:00 PM EDT Infusion Neela Lennon [facility] Medical Oncology [address] [place] [phone] Neela Lennon [facility] Medical OncologyStart: 10-27-2024 End: 99-51-3561xitkeurfzu11/31/2025 9:00 AM EDT Infusion Neela Lennon [facility] - Medical Oncology [address] [place] [phone] Neela Lennon [facility] - Medical OncologyStart: 10-26-2024 End: 42-28-3489zgcbatrtsk71/30/2025 11:00 AM EDT Infusion Neela Lennon [facility] - Medical Oncology [address] [place] [phone] Neela Lennon [facility] Medical OncologyStart: 49-35-6152Ljyvh BMI ScreeningAdult BMI ScreeningProBlanchard Valley Health System SystemStart: 94-36-5582Bgimnhf ScreeningTobacco ScreeningBrown Memorial Hospital SystemStart: 10-14-2024 End: 31-41-9768xpqqjdbolk61/18/2025 12:00 PM EDT Infusion Neela Lennon [facility] - Medical Oncology [address] [place] [phone] Neela Lennon [facility] - Medical OncologyStart: 10-13-2024 End: 70-29-8288emeimlhhlq99/17/2025 9:00 AM EDT Infusion Neela Lennon [facility] - Medical Oncology [address] [place] [phone] Neela Lennon [facility] Medical OncologyStart: 10-12-2024 End: 02-96-3725esnogruckh91/16/2025 11:30 AM EDT Infusion Neela Lennon [facility] - Medical Oncology [address] [place] [phone] Neela Lennon [facility] Medical OncologyStart: 74-99-4390Wlroq BMI ScreeningAdult BMI ScreeningBrown Memorial Hospital SystemStart: 67-88-3853Brche BMI ScreeningAdult BMI ScreeningBrown Memorial Hospital SystemStart: 47-71-5966Zlzge BMI ScreeningAdult BMI ScreeningProBlanchard Valley Health System SystemStart: 48-36-3486Kjkeioo ScreeningTobacco ScreeningBrown Memorial Hospital SystemStart: 09-30-2024 End: 70-87-7448nungjivwfdWsosbps L Kern [facility] - Medical OncologyComment on above:ArrivedStart: 09-29-2024 End: 11-88-7777qpoavkdpst22/03/2025 8:00 AM EDT Infusion Neela Moreaun [facility] - Medical Oncology [address] [place] [phone] Neela Moreaun [facility] - Medical OncologyStart: 09-28-2024 End: 44-83-4089fyrtqtbsna21/02/2025 11:00 AM EDT Infusion Neela L Saji [facility] - Medical Oncology [address] [place] [phone] Neela Lennon [facility] - Medical OncologyStart: 72-62-9324Gotpo BMI ScreeningAdult BMI ScreeningProBlanchard Valley Health System SystemStart: 62-36-7693Pqxexoy ScreeningTobacco ScreeningProBlanchard Valley Health System SystemStart: 09-16-2024 End: 03-35-3867dodxibuhny01/20/2025 3:00 PM EDT Infusion Neela Lennon [facility] - Medical Oncology [address] [place] [phone] Neela Lennon [facility] - Medical OncologyStart: 09-16-2024 End: 99-51-5260Ppwqihz encounter zffvlempw90/20/2025 2:45 PM EDT Office Visit Neela Lennon [facility] - Medical Oncology [address] [place] [phone] Wallace Prado MD [facility] [place] [address] Neela Lennon [facility] - Medical OncologyStart: 09-15-2024 End: 96-34-6709foshxnhads77/19/2025 11:00 AM EDT Infusion Neela Lennon [facility] - Medical Oncology [address] [place] [phone] Neela Lennon [facility] - Medical OncologyStart: 09-13-2024 End: 26-27-1395hobtydlosc14/17/2025 11:00 AM EDT Infusion Nelea Lennon [facility] - Medical Oncology [address] [place] [address] [phone] Neela Lennon [facility] - Medical OncologyStart: 85-16-1122Yvbtv BMI ScreeningAdult BMI ScreeningProBlanchard Valley Health System SystemStart: 09-09-2024 End: 27-35-9985Aekkfit encounter dxbtsyxvw99/13/2025 9:00 AM EDT Appointment [facility] Neelainocente Lennon [facility] - Pet Imaging [address] [place] [phone] MdkXnslai [facility] L [facility] Start: 09-02-2024 End: 28-13-2138rjmdevbnan27/06/2025 1:00 PM EDT Infusion Neela Lennon [facility] - Medical Oncology [address] [place] [address] Neela Lennon [facility] Medical OncologyStart: 09-01-2024 End: 28-75-5921ukeotyiths14/05/2025 9:00 AM EDT Infusion Neela Lennon [facility] - Medical Oncology [address] [place] [phone] Neela Lennon [facility] - Medical OncologyStart: 08-30-2024 End: 34-70-5986obdxvwyrhf60/03/2025 10:00 AM EDT Infusion Neela Lennon [facility] - Medical Oncology [address] [place] [phone] Neela Lennon [facility] Medical OncologyStart: 05-45-0033Lnrnk BMI ScreeningAdult BMI ScreeningAtrium Healthtart: 08-19-2024 End: 08-80-9232lmtwrizlrx90/23/2025 4:00 PM EDT Infusion Neela Lennon [facility] - Medical Oncology [address] [place] [address] Neela Lennon [facility] Medical OncologyStart: 08-18-2024 End: 55-92-5328clealasdex68/22/2025 1:00 PM EDT Infusion Neela Lennon [facility] - Medical Oncology [address] [place] [phone] Neela Lennon [facility] - Medical OncologyStart: 08-18-2024 End: 25-12-2253Dpkptzl encounter poukkhgaa49/22/2025 12:45 PM EDT Office Visit Neela Lennon [facility] - Medical Oncology [address] [place] [phone] Wallace Prado MD [address] [facility] [address] [place], [place] [id number] Neela Lennon [facility] - Medical OncologyStart: 08-16-2024 End: 57-90-9359djhkpsayqf11/20/2025 1:30 PM EDT Infusion Neela Lennon [facility] - Medical Oncology [address] [place] [address] Neela Lennon [facility] Medical OncologyStart: 08-16-2024 End: 96-91-6456fwxtqgofdp28/20/2025 9:30 AM EDT Infusion Neela Lennon [facility] - Medical Oncology [address] [place] [address] Neela Lennon [facility] Medical OncologyStart: 67-52-3355Epqyt BMI ScreeningAdult BMI ScreeningProBlanchard Valley Health System SystemStart: 13-67-0095Mmzif BMI ScreeningAdult BMI ScreeningProBlanchard Valley Health System SystemStart: 45-52-4756Lowtiow ScreeningTobacco ScreeningProBlanchard Valley Health System SystemStart: 08-05-2024 End: 55-93-8147qhmdpfuuob85/09/2025 1:30 PM EDT Infusion Neela Lennon [facility] Medical Oncology [address] [place] [address] Neela Lennon [facility] Medical OncologyStart: 95-63-6698Tmnvu BMI ScreeningAdult BMI ScreeningProBlanchard Valley Health System SystemStart: 08-04-2024 End: 29-08-0121zuckkoisxz94/08/2025 10:00 AM EDT Infusion Neela Lennon [facility] - Medical Oncology [address] [place] [phone] Neela Lennon [facility] Medical OncologyStart: 08-04-2024 End: 80-33-5370Psyboup encounter fqyyrtntk97/08/2025 9:30 AM EDT Office Visit Neela Lennon [facility] - Medical Oncology [address] [place] [address] [phone] Wallace Prado MD [address] [place] [address] [address] [place], [place] [address] Neela Lennon [facility] Medical OncologyStart: 08-02-2024 End: 21-38-2160cmzrjwfzpb20/06/2025 11:00 AM EDT Infusion Neela Lennon [facility] Medical Oncology [address] [place] [phone] Neela Lennon [facility] Medical OncologyStart: 53-07-3916Bvwih BMI ScreeningAdult BMI ScreeningProBlanchard Valley Health System SystemStart: 07-22-2024 End: 18-04-3195rsranfjsqk45/25/2025 2:30 PM EDT Infusion Neela Lennon [facility] Medical Oncology [address] [place] [address] Neela Lennon [facility] Medical OncologyStart: 07-21-2024 End: 49-67-8798vykfyeflza46/24/2025 10:30 AM EDT Infusion Neela Lennon [facility] Medical Oncology [address] [place] [phone] Neela Lennon [facility] Medical OncologyStart: 07-21-2024 End: 26-99-7867Bdbelaf encounter ubfjjnwor04/24/2025 10:15 AM EDT Office Visit Neela Lennon [facility] Medical Oncology [address] [place] [phone] Wallace Prado MD [facility] [place] [address] Neela Lennon [facility] Medical OncologyStart: 07-19-2024 End: 19-33-5902tawdyztezi39/22/2025 11:00 AM EDT Infusion Neela Lennon [facility] Medical Oncology [address] [place] [phone] Neela Lennon [facility] Medical OncologyStart: 85-15-4862Ofbogtz ScreeningTobacco ScreeningProBlanchard Valley Health System SystemStart: 25-68-1152Kqmpu BMI ScreeningAdult BMI ScreeningProBlanchard Valley Health System SystemStart: 07-08-2024 End: 36-72-2773uodcfgojtj32/11/2025 1:00 PM EDT Infusion Neela Lennon [facility] Medical Oncology [facility] [place] [address] Neela Lennon [facility] Medical OncologyStart: 07-07-2024 End: 53-26-4409Qnfm complete W/Strain ImagingEcho complete W/Strain Imaging Echocardiography Routine Hodgkin lymphoma, unspecified Hodgkin lymphoma type, unspecified body region (CMS-HCC) Hodgkin lymphoma of intrapelvic lymph nodes, unspecifiedHodgkin lymphoma type ([facility]-HCC) Encounter for monitoring cardiotoxic drug therapy Expected: 07/07/2024, Expires: 07/07/2025[employer] Work Phone: Comment on above:Expected: 07/07/2024, Expires: 07/07/2025Start: 07-07-2024 End: 27-30-5345cpekbysywiNxlicou L Kern [facility] Medical OncologyStart: 07-07-2024 End: 05-03-2057Nmnqukf encounter procedureDoeduar Lennon [facility] OncologyStart: 95-79-0038GNYMH-19 Vaccine (8 - Pfizer risk season)COVID- 19 Vaccine (8 - Pfizer risk )[facility] DFine SystemStart: 07-05-2024 End: 01-52-7465kmgcfewmjv46/08/2025 12:00 PM EDT Infusion Neela Lennon [facility] Medical Oncology [address] [place] [address] Neela Lennon [facility] OncologyStart: 06-10-2024 End: 80-04-2742Nxpwkm of bone marrowBone Marrow Biopsy Procedures Routine 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[facility]-HCC) Expected: 06/10/2024 (Approximate), Expires: 07/11/2024[facility] DaytonGMZ Energy SystemComment on above:Expected: 06/10/2024 (Approximate), Expires: 07/11/2024Start: 06-02-2024 End: 76-46-7001Eiaqcnbd for percutaneous biopsy of BoneIR superficial percutaneous biopsy bone Imaging Routine Hodgkin lymphoma, unspecified Hodgkin lymphoma type, unspecified body region (CMS-HCC) Bone lesion Expected: 06/02/2024, Expires: 06/02/2025[facility] Work Phone: Comment on above:Expected: 06/02/2024, Expires: 06/02/2025Start: 06-02-2024 End: 53-29-9825Dylfmfp encounter /06/2025 11:15 AM EST Office Visit Neela L [facility] - Medical Oncology [address] [place] [phone] Wallace Prado MD [address] [place] [address] [address] [place], [place] [phone] Neela Nelson [place] [facility] - Medical OncologyStart: 05-31-2024 End: 78-03-0923Nwdwccb encounter mkyaetssn86/04/2025 9:10 AM EST Office Visit [facility] [address] [phone] Quin Mas MD [address] [address] ArrivedNOMS CI ENTComment on above:ArrivedStart: 05-27-2024 End: 27-99-6750BV Skull base to mid-thighPET CT skull to thigh Imaging Routine Hodgkin lymphoma of intrapelvic lymph nodes, unspecified Hodgkin lymphoma type (CMS-HCC) Bone lesion Hodgkin lymphoma, unspecified Hodgkin lymphoma type, unspecified body region (CMS-HCC) 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) Expected: 05/27/2024, Expires: 04/07/2025 [facility] Work Phone: Comment on above:Expected: 05/27/2024, Expires: 04/07/2025Start: 05-27-2024 End: 40-96-7882Rcrzpax encounter xfefionac08/28/2025 9:00 AM EST Appointment [facility] Neela L [facility] - Pet Imaging [address] [place] [address] EbzWxolus Neela Lennon [facility] - Pet Imaging Start: 04-27-2024 End: 85-00-5631Tmruljw encounter procedureNOMS CI ENTComment on above:Arrived Start: 04-07-2024 End: 24-76-0847Zlzauzc encounter hxlorrsdu89/09/2025 1:30 PM EST Office Visit Neela Lennon [facility] - Medical Oncology [address] [place] [phone] Wallace Prado MD [address] [place] [address] Neela Lennon [facility] - Medical OncologyStart: 03-10-2024 End: 07-98-1832Fobrvqa encounter zfnojilqd95/12/2024 11:15 AM EST Office Visit [facility] [address] [place] [phone] Lynnette Abbott MD [address] [place] [address] [facility] MedicineStart: 03-04-2024 End: 17-81-5911Kllpptkd for percutaneous biopsy of BoneIR superficial percutaneous biopsy bone Imaging Routine Hodgkin lymphoma of intrapelvic lymph nodes, unspecified Hodgkin lymphoma type ([facility]-HCC) Bone lesion Expected: 03/04/2024, Expires: 03/04/2025[facility] Work Phone: Comment on above:Expected: 03/04/2024, Expires: 03/04/2025Start: 03-04-2024 End: 01-49-7005Avmpjgv encounter hxrjhwziz04/06/2024 1:30 PM EST Office Visit Neela Lennon [facility] - Medical Oncology [address] [place] [phone] Wallace Prado MD [address] [place] [address] Neela Lennon [facility] Medical OncologyStart: 21-53-4074MAUZR-19 Vaccine ()COVID-19 Vaccine ()[facility]: 45-29-3510DAVGW-19 Vaccine ()COVID-19 Vaccine ()[facility]: 02-11-2024 End: 63-74-8518waooxdvuqw51/14/2024 10:00 AM EST Infusion Neelainocente Lennon [facility] Medical Oncology [address] [place] [phone] Neelainocente Lennon [facility] Medical OncologyStart: 02-09-2024 End: 78-92-3236vhkqkjxcra91/12/2024 10:00 AM EST Support Visit Neelainocente Moreaun [facility] Oncology [address] [place] [phone] Dorotdeshawn Lennon [facility] OncologyStart: 02-07-2024 End: 54-51-5391DP Skull base to mid-thighPET CT skull to thigh Imaging Routine Hodgkin lymphoma, unspecified Hodgkin lymphoma type, unspecified body region (CMS-HCC) 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 (CMS- HCC) 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, unspecified Hodgkin lymphoma type ([facility]-HCC) Expected: 02/07/2024, Expires: 01/13/2025[facility] Work Phone: Comment on above:Expected: 02/07/2024, Expires: 01/13/2025Start: 01-28-2024 End: 05-65-2017tidhjbjojh11/31/2024 10:00 AM EDT Infusion Neelainocente Lennon [facility] Medical Oncology [address] [place] [phone] Neelainocente Moreaun [facility] Medical OncologyStart: 01-26-2024 End: 43-26-0729ryuhwtvnov03/29/2024 9:10 AM EDT Support Visit Neela Lennon [facility] - Medical Oncology [address] [place] [address] Agnzxae L Kern [facility] Medical OncologyStart: 01-15-2024 End: 66-00-3726rlxmzgzamo96/18/2024 11:00 AM EDT Infusion Neela Lennon [facility] Medical Oncology [address] [place] [phone] Neela Lennon [facility] Medical OncologyStart: 01-14-2024 End: 27-71-7231rypickdatu81/17/2024 10:00 AM EDT Infusion Neela Lennon [facility] Medical Oncology [address] [place] [phone] Neela Lennon [facility] Medical OncologyStart: 01-14-2024 End: 54-08-7810Igiuemk encounter kevvtemsr98/17/2024 9:30 AM EDT Office Visit Neela Lennon [facility] - Medical Oncology [address] [place] [phone] Wallace Prado MD [address] [place] [address] [address] [place] [address] Neela Lennon [facility] Medical OncologyStart: 01-12-2024 End: 06-81-9730crtlisxtxt75/15/2024 9:10 AM EDT Support Visit Neela Lennon [facility] - Medical Oncology [address] [place] [phone] Obwtkbl L Kern [facility] Medical OncologyStart: 01-11-2024 End: 46-25-1895Zmbcbry encounter fawzivnvp90/14/2024 2:30 PM EDT Office Visit [facility] [address] [place], [place] [phone] Lynnette Abbott MD [address] [place], [place] [phone] [facility] Family MedicineStart: 01-08-2024 End: 59-63-0670ZH Abdomen and Pelvis W contrast IVCT abdomen and pelvis with contrast Imaging Routine Hodgkin lymphoma, unspecified Hodgkin lymphoma type, unspecified body region (CMS-HCC) Expected: 01/08/2024, Expires: 12/02/2024 [facility] SystemComment on above:Expected: 01/08/2024, Expires: 12/02/2024Start: 01-08-2024 End: 77-82-1073JX Chest limited W contrast IVCT chest with contrast Imaging Routine Hodgkin lymphoma, unspecified Hodgkin lymphoma type, unspecified body region (CMS-HCC) Expected: 01/08/2024, Expires: 12/02/2024[facility] Work Phone: Comment on above:Expected: 01/08/2024, Expires: 12/02/2024Start: 01-08-2024 End: 95-59-9319Ffmcemj encounter nasgtdgpw60/11/2024 10:30 AM EDT Appointment [facility] - CT Imaging [address] [place] [phone] Wallace Prado MD [address] [place] [address] [address] [place], [place] [phone] [facility] - CT ImagingStart: 2023 End: 90-59-2254negaaarorx29/03/2024 10:00 AM EDT Infusion Neela Lennon [facility] - Medical Oncology [address] [place] [phone] Neela Lennon [facility] - Medical OncologyStart: 12-29-2023 End: 07-61-4795trnqoxduuj08/01/2024 9:05 AM EDT Support Visit Neela Lennon [facility] - Medical Oncology [address] [place] [phone] L Kern [facility] - Medical OncologyStart: 12-17-2023 End: 92-04-5931vkoapupwzj25/19/2024 10:00 AM EDT Infusion Neela Lennon [facility] - Medical Oncology [address] [place] [phone] Neela Lennon [facility] Medical OncologyStart: 12-15-2023 End: 56-70-2573nmmolcrdlq34/17/2024 9:10 AM EDT Support Visit Neela Lennon [facility] Medical Oncology [address] [place] [phone] Gcvuduk L Kern [facility] Medical OncologyStart: 12-03-2023 End: 15-35-3491ayxawldpls02/05/2024 10:00 AM EDT Infusion Neela Lennon [facility] Medical Oncology [address] [place] [phone] Neela Lennon [facility] Medical OncologyStart: 12-03-2023 End: 75-15-5671Napdtex encounter xnevhfrfs55/05/2024 9:30 AM EDT Office Visit Neela Lennon [facility] Medical Oncology [address] [place] [phone] Wallace Prado MD [address] [place] [address] [address] [place] [address] Neela Lennon [facility] Medical OncologyStart: 12-01-2023 End: 36-36-5699xipjsiqxar51/03/2024 9:10 AM EDT Support Visit Neela Lennon [facility] Medical Oncology [address] [place] [phone] Dgyitid L Kern [facility] Medical OncologyStart: 11-29-2023 COVID-19 Vaccine ()COVID-19 Vaccine () [facility] SystemStart: 77-85-6016Dsaknxndw vaccinationInfluenza Vaccine [facility] SystemStart: 11-19-2023 End: 22-97-2518rrepvhbyre41/22/2024 10:30 AM EDT Infusion [facility] Oncology [address] [place] [address] Neela Lennon [facility] Medical OncologyStart: 11-17-2023 End: 87-40-3609toysnfmcrv29/20/2024 9:20 AM EDT Support Visit Neela Lennon [facility] - Medical Oncology [address] [place] [phone] Ebtprez L Kern [facility] Medical OncologyStart: 11-05-2023 End: 68-24-1349wbmylmljyr78/08/2024 10:00 AM EDT Infusion Neela Lennon [facility] Medical Oncology [address] [place] [phone] Neela Lennon [facility] Medical OncologyStart: 11-03-2023 End: 12-98-9390zlcheqveiw49/06/2024 9:10 AM EDT Support Visit Neela Lennon [facility] Medical Oncology [address] [place] [phone] Moioplw L Kern [facility] Medical OncologyStart: 10-22-2023 End: 36-41-4436insffmqbxk71/25/2024 10:00 AM EDT Infusion Neela Lennon [facility] - Medical Oncology [address] [place] [phone] Neela Lennon [facility] Medical OncologyStart: 10-22-2023 End: 73-46-1888Diaxejz encounter bcpfnwono09/25/2024 9:30 AM EDT Office Visit Neela Lennon [facility] - Medical Oncology [address] [place] [phone] Wallace Prado MD [address] [place] [address] [address] [place] [address] Neela Lennon [facility] - Medical OncologyStart: 10-20-2023 End: 72-57-9647jgffrfzprx73/23/2024 2:30 PM EDT Support Visit Neela Lennon [facility] - Medical Oncology [address] [place] [phone] Yqhvjde L Kern [facility] Medical OncologyStart: 10-13-2023 End: 46-14-2635ppwxnmgddl90/16/2024 2:30 PM EDT Support Visit Neela Lennon [facility] Medical Oncology [address] [place] [phone] Wgdoeeq L Kern [facility] Medical OncologyStart: 10-08-2023 End: 44-64-0431cqocjhcjxq16/11/2024 11:00 AM EDT Infusion Neela Lennon [facility] Oncology [address] [place] [phone] Neela Lennon [facility] Medical OncologyStart: 10-08-2023 End: 91-02-9418Fugckyg encounter qtqjbjtwa53/11/2024 10:30 AM EDT Office Visit Neela Lennon [facility] Medical Oncology [address] [place] [phone] Wallace Prado MD [address] [facility] [address] [place] [address] Neela Lennon [facility] Medical OncologyStart: 10-06-2023 End: 40-91-7297uzolojbpgx69/09/2024 9:30 AM EDT Support Visit Neela Lennon [facility] Oncology [address] [place] [phone] Xydcgid L Kern [facility] Medical OncologyStart: 09-29-2023 End: 02-14-2782tjqdcvoazc00/02/2024 9:15 AM EDT Support Visit Neela Lennon [facility] Medical Oncology [address] [place] [phone] Fkwylst L Kern [facility] Medical OncologyStart: 09-24-2023 End: 71-80-3508tvjeersgzw65/27/2024 10:00 AM EDT Infusion Neela Lennon [facility] - Medical Oncology [address] [place] [address] [place] [address] Neela Lennon [facility] Medical OncologyStart: 09-23-2023 End: 97-36-8324edaudzbtlo38/26/2024 9:00 AM EDT Support Visit Neela Lennon [facility] - Medical Oncology [address] [place] [phone] Sqrlgay L [facility] Medical OncologyStart: 09-22-2023 End: 46-46-2108wsqhusdepw12/25/2024 9:35 AM EDT Support Visit Neela Lennon [facility] Oncology [address] [place] [phone] Tbbupac L Kern [facility] Medical OncologyStart: 09-10-2023 End: 64-53-6761vezalfrjhv17/13/2024 10:00 AM EDT Infusion Neela Lennon [facility] Oncology [address] [place] [phone] Neela eLnnon [facility] Medical OncologyStart: 09-10-2023 End: 92-11-5273Anmflkd encounter dcfqzlaco47/13/2024 9:45 AM EDT Office Visit Neela Lennon [facility] Medical Oncology [address] [place] [phone] Wallace Prado MD [facility] [place] [phone] Neela Lennon [facility] Medical OncologyStart: 09-09-2023 End: 31-47-0672wkucamqxes26/12/2024 9:05 AM EDT Support Visit Neela Lennon [facility] - Medical Oncology [address] [place] [phone] Lcwbmjv L Kern [facility] Medical OncologyStart: 08-27-2023 End: 26-29-9057bggmrqnlgm07/30/2024 12:00 PM EDT Infusion Neela Lennon [facility] - Medical Oncology [address] [place] [phone] Neela Lennon [facility] - Medical OncologyStart: 08-27-2023 End: 91-19-3790Fjfhjfz encounter ovhzzmqai07/30/2024 11:30 AM EDT Office Visit Neela Lennon [facility] - Medical Oncology [address] [place] [phone] Alysa Major, 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 [address] [facility], [address] [place] [address] Neela Lennon [facility] - Medical OncologyStart: 08-26-2023 End: 65-76-8327tmhcatuefi94/29/2024 9:00 AM EDT Support Visit Nelea Lennon [facility] Medical Oncology [address] [place] [phone] Ugrzukg L Kern [facility] Medical OncologyStart: 08-19-2023 End: 14-66-1885czalvrlrqb12/22/2024 9:05 AM EDT Support Visit Neela Lennon [facility] Oncology [address] [place] [phone] Mpwmogt L Kern [facility] Medical OncologyStart: 08-17-2023 End: 72-15-8575Zziqrdn encounter nlueqdlrk75/20/2024 10:00 AM EDT Appointment [facility] Interventional Radiology [address] [place] [address] Wallace Prado MD [address] [facility] [address] [place], [place] [phone] (Work) [facility] Interventional RadiologyStart: 08-13-2023 End: 15-64-7240cfxqvmkuim85/16/2024 10:00 AM EDT Infusion Neela Lennon [facility] Oncology [address] [place] [phone] Neela Lennon [facility] Medical OncologyStart: 08-13-2023 End: 15-07-3878Vidnjng encounter zuoifqmju20/16/2024 9:15 AM EDT Office Visit Neela Lennon [facility] - Medical Oncology [address] [place] [phone] Wallace Prado MD [address] [place] [address] Neela Lennon [facility] - Medical OncologyStart: 08-12-2023 End: 36-89-2834mbqxhprdqz02/15/2024 8:20 AM EDT Support Visit Neela Lennon [facility] - Medical Oncology [address] [place] [phone] Ujdzwar L Kern [facility] - Medical OncologyStart: 08-11-2023 End: 00-73-8492kjdufhvptn25/14/2024 8:40 AM EDT Support Visit Neela Lennon [facility] - Medical Oncology [address] [place] [phone] Dawyovt L Kern [facility] - Medical OncologyStart: 08-07-2023 Subsequent hospital visit by rutuyatbt18/10/2024 11:00 AM EDT Hospital Encounter [facility] Neela Lennon [facility] - Pet Imaging [address] [place] [phone] AgjXswdad Neela Lennon [facility] - Pet Imaging Start: 08-07-2023 End: 21-55-5577tkhdqwpwox95/10/2024 10:15 AM EDT Infusion Neela Lennon [facility] - Medical Oncology [address] [place] [phone] Neela Lennon [facility] - Medical OncologyStart: 08-05-2023 End: 65-81-3705Kdtijdv encounter wjwdrkews91/08/2024 11:00 AM EDT Appointment [facility] - Interventional Radiology [address] [place] [id number] Wallace Prado MD [address] [place] [address] [phone] (Work) [facility] - Interventional RadiologyStart: 08-05-2023 End: 47-51-0468zvkiibsipn07/08/2024 9:00 AM EDT Support Visit Neela Lennon [facility] - Medical Oncology [address] [place] [phone] L Kern [facility] - Medical OncologyStart: 07-31-2023 End: 24-46-6911zrjujhgxxhRifronp L Kern [facility] Medical OncologyStart: 07-30-2023 End: 58-69-8421hzuiyhuddh14/02/2024 11:35 AM EDT Support Visit Neela Lennon [facility] - Medical Oncology [address] [place] [phone] L [place] [facility] Medical OncologyStart: 07-21-2023 End: 75-61-0590STT Guidance for repair of CV catheter with port or pump of Vein IR Port insertion more than 5 years Imaging Routine Lymphoma, unspecified body region, unspecified lymphoma type (CMS-HCC) Expected: 07/21/2023, Expires: 07/20/2024[employer] Work Phone: Comment on above:Expected: 07/21/2023, Expires: 07/20/2024Start: 07-16-2023 End: 59-34-7436MI Skull base to mid-thighPET CT skull to thigh Imaging Routine Lymphoma, unspecified body region, unspecified lymphoma type (CMS-HCC) Expected: 07/16/2023, Expires: 07/15/2024[employer] Work Phone: Comment on above:Expected: 07/16/2023, Expires: 07/15/2024Start: 12-48-4711ITYFS-19 Vaccine ( season)COVID-19 Vaccine ( season)[facility] SystemStart: 72-74-3711Qlap Risk Screening Fall Risk ScreeningProBlanchard Valley Health System SystemStart: 23-41-8394NJlX,Tdap and Td Vaccines (1 - Tdap)DTaP,Tdap and Td Vaccines (1 - Tdap)[facility] [employer] Start: 10-66-5524Mvcum BMI Follow Up PlanAdult BMI Follow Up PlanAtrium Healthtart: 95-24-3480Rxkbjovhvn ScreeningDepression ScreeningAtrium Healthtart: 10-04-1958Medicare Annual Wellness VisitMedicare Annual Wellness VisitAtrium Healthtart: 15-78-1862Vraaevfqp for malignant neoplasm of colonNOMS HealthcareStart: 35-84-1728Neqzzw Use: Cardiovascular Statin Use: [facility] End: 31-62-5730Ryqu MarrowBone Marrow Lab Routine 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) 1 Occurrences starting 06/10/2024 until 06/10/2025[facility] HospitalComment on above:1 Occurrences starting 06/10/2024 until 06/10/2025 End: 82-72-1585Pgma Marrow Aspiration -Bone Marrow Aspiration - Procedures Routine 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) 1 Occurrences starting 06/10/2024 until 06/10/2025[facility] HospitalComment on above:1 Occurrences starting 06/10/2024 until 06/10/2025 End: 08-12-2024 difficile by PCRC difficile by PCR Lab Routine Hodgkin lymphoma of intrapelvic lymph nodes, unspecified Hodgkin lymphoma type (CMS-HCC) Diarrhea of presumed infectious origin 1 Occurrences starting 08/13/2023 until 08/12/2024 [facility] Work Phone: Comment on above:1 Occurrences starting 08/13/2023 until 08/12/2024 End: 66-75-1250UHP W Auto Differential panel - BloodCBC auto differential Lab Routine 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 for 50 Occurrences starting 07/24/2023 until 3[facility] Work Phone: Comment on above:weekly for 50 Occurrences starting 07/24/2023 until 07/23/2032 End: 38-54-4123LEV W Auto Differential panel - BloodCBC auto differential Lab STAT 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) Per Treatment Plan for 50 Occurrences starting 07/28/2023 until 07/28/2024[facility] Work Phone: Comment on above:Per Treatment Plan for 50 Occurrences starting 07/28/2023 until 07/28/2024 End: 28-50-4810ISP W Auto Differential panel - BloodCBC auto differential Lab Routine 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) 1 Occurrences starting 06/10/2024 until 06/10/2025[facility] Work Phone: Comment on above:1 Occurrences starting 06/10/2024 until 06/10/2025 End: 02-60-4446IZC W Auto Differential panel - BloodCBC auto [...] (CMS-HCC) 08/02/2024 10:44 AM EDT[facility] Work Phone: CBI W Auto Differential panel - BloodCBC auto differential Lab STAT 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) 08/30/2024 9:56 AM EDTPSemiSouth Laboratories Health SystemCBC W Auto Differential panel - BloodCBC auto differential Lab STAT 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) 10/26/2024 10:44 AM EDT [employer] Work Phone: End: 67-94-9504ATW W Auto Differential panel - BloodCBC auto differential Lab Routine 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) 1 Occurrences starting 12/08/2024 until 12/08/2025[facility] SystemComment on above:1 Occurrences starting 12/08/2024 until 12/08/2025 End: 26-70-2229Bntdlymghyxdl metabolic 2000 panel - Serum or PlasmaComprehensive metabolic panel Lab Routine 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 for 50 Occurrences starting 07/24/2023 until 07/23/2024[facility] SystemComment on above:weekly for 50 Occurrences starting 07/24/2023 until 07/23/2024 End: 15-50-6372Qtnxhusgziecp metabolic 1999 panel - Serum or PlasmaComprehensive metabolic panel Lab STAT 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) Per Treatment Plan for 50 Occurrences starting 07/28/2023 until 07/28/2024[facility] HospitalComment on above:Per Treatment Plan for 50 Occurrences starting 07/28/2023 until 07/28/2024 End: 01-60-7005Nebcnolbdkwaj metabolic 1999 panel - Serum or PlasmaComprehensive metabolic panel Lab STAT 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) Per Treatment Plan for 50 Occurrences starting 06/30/2024 until 07/01/2025[facility] HospitalComment on above:Per Treatment Plan for 50 Occurrences starting 06/30/2024 until 07/01/2025omprehensive metabolic 1999 panel - Serum or PlasmaComprehensive metabolic panel Lab STAT 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) 08/30/2024 9:56 AM EDT [facility] End: 83-27-5419Wpnxswonilg sedimentation rateErythrocyte Sedimentation Rate (ESR) Lab Routine 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 for 50 Occurrences starting 07/24/2023 until 07/23/2024 [facility] [facility] HospitalComment on above:weekly for 50 Occurrences starting 07/24/2023 until 07/23/2024 End: 02-29-6071Jizz Cytometry Bone MarrowFlow Cytometry Bone Marrow Lab Routine 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) 1 Occurrences starting 06/10/2024 until 06/10/2025[facility] HospitalComment on above:1 Occurrences starting 06/10/2024 until 06/10/2025 End: 34-49-7613ZM Panel(stool pathogen panel)GI Panel(stool pathogen panel) Lab Routine Hodgkin lymphoma of intrapelvic lymph nodes, unspecifiedHodgkin lymphoma type (CMS-HCC) Diarrhea of presumed infectious origin 1 Occurrences starting 08/13/2023 until 08/12/2024ProBl[facility] HospitalGMZ Energy SystemComment on above:1 Occurrences starting 08/13/2023 until 08/12/2024 End: 06-70-5239Sjfirbfwp specific antigen screenProstatic specific antigen screen Lab Routine Screening for prostate cancer 1 Occurrences starting 0 06/02/2024 until 06/02/2025[employer] Work Phone: Comment on above:1 Occurrences starting 06/02/2024 until 06/02/2025 End: 32-57-4852Lpfeipsc PathologySurgical Pathology Pathology and Cytology Routine Hodgkin lymphoma of intrapelvic lymph nodes, unspecified Hodgkin lymphoma type (CMS-HCC) Bone lesion 1 Occurrences starting 03/04/2024 until 03/04/2025ProBl[facility] HospitalGMZ Energy SystemComment on above:1 Occurrences starting 03/04/2024 until 03/04/2025 End: 07-23-4603Mmzjydrc PathologySurgical Pathology Pathology and Cytology Routine Hodgkin lymphoma, unspecified Hodgkin lymphoma type, unspecified body region (CMS-HCC) Bone lesion 1 Occurrences starting 06/02/2024 until 06/02/2025 [facility] DFine [facility] HospitalComment on above:1 Occurrences starting 06/02/2024 until 06/02/2025 End: 59-84-0578Oatenmo profile includes TSH IO9Lpzmekh profile includes TSH FT4 Lab STAT Hodgkin lymphoma, unspecified Hodgkin lymphoma type, unspecified body region (CMS-HCC) Essential (primary) hypertension Fatigue, unspecified type Malaise pertreatment plan for 50 Occurrences starting 06/30/2024 until 06/30/2025ProBlanch[facility] Valley [facility] HospitalGMZ Energy [facility] HospitalComment on above:per treatment plan for 50 Occurrences starting 06/30/2024 until 06/30/2025Thyroid profile includes TSH FT4 Thyroid profile includes TSH FT4 Lab STAT Hodgkin lymphoma, unspecified Hodgkin lymphoma type, unspecified body region (CMS-HCC) Essential (primary) hypertension Fatigue, unspecified type Malaise 08/30/2024 9:56 AM EDT[facility] Work Phone: End: 05-98-5100Lujjj [Mass/volume] in Serum or PlasmaUric acid Lab Routine 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 for 50 Occurrences starting 07/24/2023 until 07/23/2024[facility] Comment on above:weekly for 50 Occurrences starting 07/24/2023 until 07/23/2024 Immunizations Immunization DateImmunizationNotesCare CxldjshfYidnbphq12-11-6252fazjkyhwl virus vaccine, unspecified formulationCandakirsty DouglasCarilion Franklin Memorial Hospital 60-52-1670Isavo-19, Mrna, Lnp-s, Pf,brenda-sucrose,30 Mcg/0.3ml Awch95Aigzga Shipe 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 Work Phone: [facility] HospitalEntjzc93-56-1386yeotaexicifd 20- valent conjugate vaccineSsharon Hobbs 467-0320Rtdrnq-MaxiaSt. Charles Hospital 31-15-8429VTP, bivalent, protein subunit RSVpreF, diluent reconstituted, 0.5 mL, PFMartha Shipe 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 Work Phone: [facility] HospitalIfxoqi54-14-2991rfrurdgxw virus vaccine, unspecified formulationSsharon Hobbs 406-2599Kxlpbr-OdtnnSt. Charles Hospital 13-55-3900Fcnzryrls, High-dose, QuadrivalentMartha Shipe 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 Work Phone: [facility] HospitalRnsjas28-65-6778MUWH-WgS-2 (COVID-19) mRNAMUL.ORD!l05775Jdvkcw Ross 887-7610Snlzoe-EztzrSt. Charles Hospital Comment on above:Result Comment: 2023-06-02: GDX1525-66-9561iledledcf virus vaccine, unspecified formulationSsharon Hobbs 574-5006Bmmkve-IjhncSt. Charles Hospital 52-13-0336cjevtyumj, injectable, quadrivalent, preservative freeMartha Shipe 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 Work Phone: [facility] HospitalXttnem05-97-5825IYRO-FgL-8 mRNA (zyvdshzimru-gpkx-pfopjlq) vaccineSsharon Hobbs 263-7812Eeqpsv-IbhkoSt. Charles Hospital 73-38-1583ymmdpw vaccine recombinantSsharon Hobbs 295-0651Azgnda-EaauzSt. Charles Hospital 33-31-8625dvelnlyoo virus vaccine, unspecified formulationSsharon Hobbs 757-8721Ljxnjh-QbfdjSt. Charles Hospital 24-01-8162rxdbxsrzf, injectable, quadrivalent, preservative freeMartha Shipe 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 Work Phone: [facility]10-03-2021zoster vaccine recombinantSsharon Hobbs 632-2836Fmukow-BlgrrSt. Charles Hospital 37-23-1619THRC-CoV-2 (COVID-19) mRNA BNT-162b2 vaChristiano Hobbs 144-3709Lvnzdv-NxedbSt. Charles Hospital 46-58-7294LIEV-CoV-2 (COVID-19) mRNA BNT-162b2 vaxSsharon Hobbs 204-5079Wewblb-QfdavSt. Charles Hospital 05-28-1290UOJA-CoV-2 (COVID-19) mRNA BNT-162b2 Frances Hobbs 606-3082Ggrjdj-DljxsSt. [facility] Hospital 38-76-5633infljsgvg, injectable, quadrivalent, preservative freeMartha Shipe 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 Work Phone: [facility] HospitalMagctv16-35-2892tamblnihb virus vaccine, unspecified formulationSsharon Hobbs 446-8593Tqhyzz-NnsazSt. Charles Hospital 22-21-4957wmaoqcvxi, seasonal, injectableMartha Shipe 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 Work Phone: [facility] HospitalRigsss29-14-7048rcheodmrb virus vaccine, unspecified formulationSsharon Hobbs 334-3492Vjycac-QojeiJ.[facility]. [facility] Sonia 47-70-0794yjjplbhzk, seasonal, shannonLoidatrang [place]ter 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 Work Phone: [facility] Payers DatePayer CategoryPayerPolicy [id number] IndemnityMEDICAL MUTUAL Member Subscriber Plan / Payer (Effective 2023-Present) Name: Torsten Haywood Chepe Relation to Subscriber: Self Name: Torsten Haywood Chepe Payer ID: Not on file Type: Not on file Address: [place] [id number] Health InsuranceMEDICAL MUTUAL Member Subscriber Plan / Payer (Effective 2023-Present) Name: Torsten Haywood Relation to Subscriber: Self Name: Torsten Haywood Payer ID: Not on file Type: Not on file Address: [address] [id number] 20-11-8021Fhvrfta142024[id number] 03-01-2020Medicare1.2.840.222823.1.13.693.2.7.9.303893.752793.25745-35-8874 [id number] 5sa0517j-[id number] 2.16.840.1.420968.3.579.2.34474-07-7803Uxyevia97348654 2.16.840.1.386107.3.579.2.194840-67-6249Wfysutd10062046 2.16.840.1.998059.3.579.2.596644-00-5826Gguutgw31755911 2.16.840.1.119972.3.579.2.854254-32-8708Qvgmuhe71623428 2.16.840.1.612620.3.579.2.894286-18-0993Iouojgy33817519 2.16840.1.999769.3.579.2.609695-15-3085Waasryn51216070 2.840.1.122870.3.579.2.119604-76-8266Vzjpqvf26723783 2.16.840.1.926831.3.579.2.14432-12-7182Muepytr08024893 2.16.840.1.846638.3.579.2.76735-44-5512Qdvaaif56377010 2.840.1.391907.3.579.2.22433-90-2197Zjkvkqq22313893 2.16.840.1.048360.3.579.2.53092-83-9538Xekswvc49703045 2.16.840.1.615731.3.579.2.59944-67-2651Xfpskcp43440702 2.16.840.1.780123.3.579.2.21094-26-5727Mivxcqp35391962 2.16.840.1.936563.3.579.2.33955-67-7186Gkgejut78624897 2.16.840.1.543163.3.579.2.39684-49-2149Txwfjhr15408642 2.16.840.1.421714.3.579.2.26935-38-2427Yqatzuy7190436 2.16.840.1.695688.3.579.2.140687-53-0065Netdgph5341237 2.16840.1.749763.3.579.2.659689-75-6932Uxsjxeh2911394 2.16840.1.058892.3.579.2.793123-66-7406Jcxmayc799101219 2.16840.1.411034.3.579.2.249693-56-2328Xnvflrb16923514 2.840.1.315817.3.579.2.683257-71-7432Mznifdk30458218 2.840.1.909869.3.579.2.268920-23-9607Jrucyho10850410 2.840.1.439369.3.579.2.114617-55-4482Lzkzdpj04631047 2.0.1.218706.3.579.2.241148-98-0606Furqkug50794686 2.840.1.615224.3.579.2.654591-28-9266Cjgetwj36259687 2.840.1.675220.3.579.2.982514-74-0697Agsvvod09298304 2.16840.1.712790.3.579.2.291680-53-7219Uxyaxvh81588414 2.840.1.989643.3.579.2.549221-22-6159Pyoznkf77918103 2.16.840.1.041266.3.579.2.074156-54-8376Nfbamjh83345962 2.16.840.1.344851.3.579.2.756686-91-8666Wbwlbhu39700355 2.16.840.1.572342.3.579.2.655689-66-9879Xyzvnbo77832227 2.16.840.1.650327.3.579.2.641156-14-7274Ehlilwy96873356 2.16.840.1.692226.3.579.2.852862-91-8127Lfcxvjb60352904 2.16.840.1.399229.3.579.2.991519-81-6208Crymigv41726747 2.16.840.1.728286.3.579.2.825839-03-3670Avkaugq04116189 2.16.840.1.762315.3.579.2.640876-11-7119Xsoqygv72156511 2.16.840.1.497598.3.579.2.300010-03-3124Mldwiyd99407467 2.16.840.1.791687.3.579.2.955327-13-9612Nroxiou436362659 2.16.840.1.362906.3.579.2.422317-03-6077Jirwhtz309128343 2.16.840.1.487676.3.579.2.859774-34-3561Zorutwc213938695 2.16.840.1.678806.3.579.2.064401-89-7608Aoqwfqi653781695 2.16.840.1.602237.3.579.2.997439-30-8503Dpskmfv431478579 2.16.840.1.205328.3.579.2.740566-65-1378Sanrdgw845529723 2.16.840.1.620804.3.579.2.430885-24-0469Duxixmo260363012 2.16.840.1.917857.3.579.2.673224-16-1026Bnqatye042607839 2.16.840.1.711788.3.579.2.003274-11-9198Dmzwpfv211969578 2.16.840.1.082570.3.579.2.549982-69-1373Varylgr568070739 2.16840.1.966928.3.579.2.045733-52-4146Etnggbu714055993 2.840.1.340949.3.579.2.578005-79-8804Tdmgdjh746158945 2.16840.1.829881.3.579.2.757047-94-6905Mtwulic082127415 2.840.1.040412.3.579.2.361804-97-3422Pjaylkc043936394 2.16840.1.868191.3.579.2.025899-86-4963Xbcytod035947475 2.16840.1.600154.3.579.2.038417-02-3956Limgzgl516034063 2.16840.1.237194.3.579.2.471434-69-6185Rwabqfp851585232 2.16.840.1.475953.3.579.2.337492-14-6039Nwynrbu969320138 2.16.840.1.034556.3.579.2.259815-91-9388Rnmdtow777621460 2.16.840.1.859057.3.579.2.733801-47-3821Goefhyc144744388 2.16.840.1.593620.3.579.2.109819-08-3329Omtqecw463082261 2.16.840.1.184698.3.579.2.716477-66-3858Bktculr244682473 2.16.840.1.559563.3.579.2.118880-97-6545Ndnlmpa385802733 2..840.1.984253.3.579.2.188875-22-7202Ykvxqsq736272376 2.16.840.1.990252.3.579.2.433462-35-9796Zjjgvup637970909 2.840.1.267043.3.579.2.083625-14-9833Lcdfcyi595287692 2.840.1.481647.3.579.2.215796-49-6704Tmtsbko707519807 2.840.1.599895.3.579.2.881908-77-3642Hdasnhu204844716 2.840.1.915241.3.579.2.114164-99-6002Kxnamqm706919166 2.840.1.318052.3.579.2.835185-10-3273Msmxtht782255449 2.840.1.786850.3.579.2.709129-59-6438Iyrtitj751249291 2.16.840.1.439098.3.579.2.420689-37-4544Hxbfkbc298918288 2.16840.1.506186.3.579.2.024681-31-9122Hucsaqb431242754 2.16.840.1.288504.3.579.2.557217-20-3455Ayvnkrk876282713 2.16.840.1.990806.3.579.2.113968-74-0084Xubirlb066034505 2.16.840.1.830369.3.579.2.073716-56-3557Jacnxvv347753629 2.16.840.1.633737.3.579.2.982923-91-0884Vharysl048314618 2.16.840.1.633779.3.579.2.977453-31-5835Emvyibb988071956 2.16.840.1.455282.3.579.2.207736-69-8299Logpgmw481465158 2.840.1.718148.3.579.2.831283-35-2649Ncxgtbn174369596 2.16.840.1.108983.3.579.2.369010-39-6065Naiunpl669791417 2.16.840.1.920500.3.579.2.535123-09-5669Fenazhg249562840 2.16.840.1.856792.3.579.2.118886-89-3432Oaoxkri771811449 2.16.840.1.883334.3.579.2.371613-51-4623Swjfmaw665936168 2.16.840.1.704267.3.579.2.462414-10-6434Zrjqkqd398873428 2.16.840.1.623874.3.579.2.542705-20-7618Dtmjgjt821779863 2.16.840.1.835508.3.579.2.970839-25-8635Cyzppee829350284 2.16.840.1.121791.3.579.2.343889-83-9839Zlsvdws59769173 2.16.840.1.357803.3.579.2.757237-57-2541Kxkmtja57154901 2.16.840.1.070597.3.579.2.132517-17-8488Pjhrqea34053784 2.16.840.1.925284.3.579.2.194211-27-7641Xwkumgv96185731 2.16.840.1.160246.3.579.2.727613-16-7263Ggrhvnu64237741 2.16.840.1.165943.3.579.2.169277-99-9001Lnktvmz80590948 2.16.840.1.290303.3.579.2.338009-14-6083Xqqholv72332979 2.16.840.1.656544.3.579.2.802446-75-2100Nyzufdo89734764 2.16.840.1.243168.3.579.2.187466-67-2360Bhfwyue08788250 2.16.840.1.718260.3.579.2.588828-65-0521Xxnximd75095514 2.16.840.1.036216.3.579.2.1286Self-paySelf [facility] [id number] Social History DateTypeDetailFacilityTobacco smoking status NHISUnknown if ever smokedHocking Valley Community Hospital CtrStart: 45-89-8490Tal Assigned At [facility] CtrStart: 03-08-2020 End: 66-78-4885Ettvacm smoking statusNever smoked tobacco (finding)[facility] [place]Start: 04-12-2020 End: 51-94-3911Jjt Assigned At BirthMaleFSouthwest General Health CenterTobacco smoking status NHISTobacco smoking consumption unknownNOKY HealthcareStart: 45-15-2433Gcc assigned at birthNot on fileProBlanchard Valley Health System SystemStart: 03-08-2020 End: 32-69-5194Mizfrwq use and exposureSmokeless tobacco non-userBrown Memorial Hospital SystemStart: 02-22-2024 End: 88-72-3170Ewukqylvs beverage intakeEx-drinker (finding)[facility] Start: 04-07-2024 End: 22-06-3569Xdbvxuvkg beverage intakeLifetime non-drinker (finding)[facility] CampusGastrofy SystemStart: 04-12-2020 End: 85-52-9666Ozanvwe of Social functionFostoria City Hospital DFine SystemHas the MTailor, gas, oil, or water company threatened to shut off services in your home in past 12MoNBrookdale University Hospital and Medical CenterGMZ Energy SystemHow often to you have a drink containing alcohol?NeverAccess Hospital DaytonSelo ReservaHow many standard drinks containing alcohol do you have on a typical day?Not askedAccess Hospital DaytonGMZ Energy System Start: [id number] (finding)[facility] Procedure CodeEquipment CodeEquipment Original TextEquipment IdentifierDatesPort Powerport Clrvu Argd 8fr 1 Lum Ltwt Intmd Maria Guadalupe Pu - [id number] FDAStart: 08-05-2023 Goals DatePatient GoalDesired Activity/StatePersonal [...] Notes 07-13-2023 to 01-17-2025 Note Date & NtyqXejeOlteflct09-90-1811 History of Present illness Narrative* Norman Sosa RN - 01/17/2025 1:30 PM EDT Port flush per protocol documented in [facility] encounterC[facility] History of Present illness Narrative* Frank Morley RN - 12/09/2024 3:00 PM EDT Fulphila administered sq to MARA. Pt tolerated well. documented in this encounterC[facility] Clinic [facility]09-11-2025 History of Present illness Narrative* Sonya Reyes [...] infusion bay for treatment. documented in this encounterC[facility] Clinic [facility]09-11-2025 History of Present illness Narrative* Nahomy Patel [...] to our facility transporter. documented in this encounterCleveland Clinic [facility]09-11-2025 History of Present illness Narrative* Wallace Prado MD - 12/08/2024 11:15 AM EDT Images from the original note were not included. [facility] Rajendra Manrique M.D. Aimee Anderson M.D. Fili Bolanos M.D. Briseida Sena M.D. Chantale Melvin, [employer]PER[employer]-[facility] Morales Joseph, STRUCTURAL MILL SUPERVISORHARRINGTON MEMORIAL HOSPITAL Gala Trotter, STRUCTURAL MILL SUPERVISORHARRINGTON MEMORIAL HOSPITAL Angelika Jones, STRUCTURAL MILL SUPERVISORHARRINGTON MEMORIAL [facility]OSPITAL ROSIBEL Javier M.D. Santiago Nicolas M.D. Dale Bro M.D. Brandon Banuelos M.D. Alysa Major, STRUCTURAL MILL SUPERVISORHARRINGTON [facility]IAL [facility] Carmen Park, STRUCTURAL MILL SUPERVISORHARRINGTON MEMORIAL [facility]OS[facility]ITAL Jennifer Eaton, STRUCTURAL MILL SUPERVISORHARRINGTON MEMORIAL [facility]OSPITAL Parul Esteves, [facility] PROGRESS NOTE 12/08/24 History of present illness: The patient is a 67 y.o. male Who presented to [facility] due to some new worsening shortness of breath over the last 2 days. He was transferred to [facility] for further workup. Patient had noted [...] lymphoma. The patient's path was reviewed at [facility], the tumor was deemed to be EBV positive, immunohistochemistry staining is consistent with Hodgkin's lymphoma. The tumors are CD15, CD30 GATA3 and Murray positive. These tumors are negative for all [...] results. Continue port flushes. Wallace Prado M.D. [facility] [address] [place] [address] documented in this encounterCleveland Clinic Marymount Hospital09-11-2025 Instructions* Patient Instructions* Wallace Prado MD - 12/08/2024 11:15 AM EDT Okay to treat. Wallace Prado MD 12/08/2024 Last dose of chemo. PET scan in late 02/2025 Bone marrow biopsy mid 02/2025 ([place]) F/u in mid 03/2025. Continue port flushes. documented in this encounterCleveland Clinic Marymount Hospital08-29-2025 History of Present illness Narrative* Lisa Reyes RN - 11/25/2024 2:30 PM EDT Patient presents for Fulphila injection as scheduled. Injection administered into Left upper arm SQtissue without incident and patient tolerated well. Site covered with band aid. Discharged in stable condition to [facility] transportation vehicle documented in this encounterCleveland Clinic Marymount Hospital08-28-2025 History of Present illness Narrative* DIA Cueto - 11/24/2024 12:04 PM EDT Pleasant pt easily engages with sba underwriter. Pt relayed he is tired at times but otherwise managing well; supportive family. Pt utilizing [employer]. Pt does not endorse any current needs; opportunity provided to ask questions, pt does not endorse any at this time, sba underwriter available & following. documented in this encounterCleveland Clinic Marymount Hospital08-28-2025 History of Present illness Narrative* Nahomy Patel RN - 11/24/2024 8:30 AM EDT Patient is here for opdivo, AVD infusions as scheduled. He reports he is tolerating treatment well with minimal side effects. Labs and VS reviewed and OK for treatment. Port accessed under sterile procedure with brisk blood return verified and line flushes with ease. NS initiated as mainline at [facility]. Premedicated with PO tylenol and po benedryl [...] to our facility transporter. documented in this encounterCleveland Clinic Mary[facility] Hospital08-27-2025 History of Present illness Narrative* Frank Morley RN - 11/23/2024 11:00 AM EDT Port draw complete per protocol. documented in this encounterCleveland Clinic Marymount Hospital08-15-2025 History of Present illness Narrative* Elizabeth Burton RN - 11/11/2024 2:00 PM EDT Injection given per order and site covered with a band aid. Pt left in stable condition. documented in this encounterCleveland Clinic Marymount Hospital08-14-2025 History of Present illness Narrative* Frank Morley RN - 11/10/2024 10:00 AM EDT Patient is here for opdivo, AVD infusions as scheduled. He reports he is tolerating treatment well with minimal side effects. Labs and VS reviewed and OK for treatment. Port accessed under sterile procedure with brisk blood return verified and line flushes with ease. NS initiated as mainline at [facility]. Premedicated with PO tylenol and benadryl. IVPB [...] to our facility transporter. documented in this encounterCleveland Clinic Mary[facility] Hospital08-13-2025 History of Present illness Narrative* Lisa Reyes RN - 11/09/2024 11:30 AM EDT Port Draw completed per protocol documented in this encounterCleveland Clinic Marymount Hospital08-08-2025 History of Present illness Narrative* Elizabeth Burton RN - 11/04/2024 9:27 AM EDT The patient is here for follow up Dr Prado recommends: F/u in 6 weeks. PET early 01/2025. Bone marrow biopsy late 12/2024 Appt made and will be given to patient a next appt documented in this encounterCleveland Clinic Marymount Hospital08-08-2025 History of Present illness Narrative* Wallace Prado MD - 11/04/2024 8:45 AM EDT Images from the original note were not included. [facility] Rajendra Manrique M.D. Aimee Anderson M.D. Fili Bolanos M.D. Briseida Sena M.D. Chantale Melvin, [facility] Morales Joseph, [facility] SUPER[facility] Gala Trotter, [facility] Angelika Jones, [facility] ROSIBEL Javier M.D. Santiago Nicolas M.D. Dale Bro M.D. Brandon Banuelos M.D. Alysa Major, [employer] [facility] Carmen Park, [facility] Jennifer Eaton, [facility] Parul Esteves, [facility] PROGRESS NOTE 11/04/24 History of present illness: The patient is a 67 y.o. male Who presented to [facility] due to some new worsening shortness of breath over the last 2 days. He was transferred to [facility] for further workup. Patient had noted [...] lymphoma. The patient's path was reviewed at [facility], the tumor was deemed to be EBV positive, immunohistochemistry staining is consistent with Hodgkin's lymphoma. The tumors are CD15, CD30 GATA3 and Murray positive. These tumors are negative for all [...] marrow biopsy late 12/2024 Wallace Prado M.D. [facility] [address] [place] [address] documented in this encounterCleveland Clinic Marymount Hospital08-08-2025 Instructions* Patient Instructions* Wallace Prado MD - 11/04/2024 8:45 AM EDT F/u in 6 weeks. PET early 01/2025. Bone marrow biopsy late 12/2024 documented in this encounterCleveland Clinic Marymount Hospital08-01-2025 History of Present illness Narrative* Мария Del Rosario RN - 10/28/2024 12:00 PM EDT Injection given per order and site covered with a band aid. Pt left in stable condition. documented in this encounterCleveland Clinic Marymount Hospital07-31-2025 History of Present illness Narrative* Nahomy Patel RN - 10/27/2024 9:00 AM EDT Patient is here for opdivo, AVD infusions as scheduled. He reports he is tolerating treatment well with minimal side effects. Labs and VS reviewed and OK for treatment. Port accessed under sterile procedure with brisk blood return verified and line flushes with ease. NS initiated as mainline at [facility]. Premedicated with PO tylenol and po benedryl [...] to our facility transporter. documented in this encounterCleveland Clinic Marymount Hospital07-30-2025 History of Present illness Narrative* Frank Morley RN - 10/26/2024 11:00 AM EDT Port draw complete per protocol. 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 Following investigations and transfer to [facility] he was found to have non-Hodgkin's lymphoma [...] Abdomen is soft. Tende (more content not included)...[facility] 10-14-2024 History of Present illness Narrative* Nahomy Patel RN - 10/14/2024 12:00 PM EDT Patient is here for Fulphila injection as scheduled. Medication administered in left upper arm subcutaneous tissue. Tolerated well. Site covered with band aid. Discharged in stable condition to private vehicle. documented in this encounterCleveland Clinic Marymount Hospital07-17-2025 History of Present illness Narrative* Nahomy Patel RN - 10/13/2024 9:00 AM EDT Patient is here for opdivo, AVD infusions as scheduled. He reports he is tolerating treatment well with minimal side effects. Labs and VS reviewed and OK for treatment. Port accessed under sterile procedure with brisk blood return verified and line flushes with ease. NS initiated as mainline at [facility]. Premedicated with PO tylenol and po benedryl [...] to our facility transporter. documented in this encounterCleveland Clinic Mary[facility] Hospital07-16-2025 History of Present illness Narrative* Zeina Calzada RN - 10/12/2024 11:30 AM EDT Patient presents for Port Draw. Port accessed per protocol . Flushes easily, brisk blood return noted. Labs obtained as ordered. Port flushed with NS, Saline locked, de accessed. Aware of upcoming appointment. Discharged in stable condition. documented in this encounterCleveland Clinic [facility] Hospital07-03-2025 History of Present illness Narrative* Nahomy Patel RN - 09/29/2024 8:00 AM EDT Patient is here for opdivo, AVD infusions as scheduled. He reports he is tolerating treatment well with minimal side effects. Labs and VS reviewed and OK for treatment. Port accessed under sterile procedure with brisk blood return verified and line flushes with ease. NS initiated as mainline at [facility]. Premedicated with PO tylenol IVPB benadryl/dexamethasone over [...] to our facility transporter. documented in this encounterCleveland Clinic Mary[facility] Hospital07-02-2025 History of Present illness Narrative* Sonya Reyes RN - 09/28/2024 11:00 AM EDT Port draw completed per protocol and patient tolerated well. Needle de-accessed and site covered with band aid. Echo order provided and patient discharged in stable condition to our facility transport. documented in this encounterCleveland Clinic Marymount Hospital06-20-2025 History of Present illness Narrative* Elizabeth Burton RN - 09/16/2024 3:27 PM EDT Patient here to for treatment assessment Okay to treat. Wallace Prado MD 09/16/2024 F/u in 6-8 weeks. documented in this encounterCleveland Clinic Marymount Hospital06-20-2025 History of Present illness Narrative* Мария Del Rosario RN - 09/16/2024 3:00 PM EDT Pt arrived ambulatory with steady gait for his fulphila injection. Injection given and he toleratedit well. Pt left with his belongings. documented in this encounterCleveland Clinic Marymount Hospital06-20-2025 History of Present illness Narrative* Wallace Prado MD - 09/16/2024 2:45 PM EDT Images from the original note were not included. [facility] Rajendra Manrique M.D. Aimee Anderson M.D. Fili Bolanos M.D. Briseida Sena M.D. Chantale Melvin, [employer] [facility] Morales Joseph, [employer] [facility] SUPER[facility] Gala Trotter, [facility] Angelika Jones, [employer] [facility] ROSIBEL Javier M.D. Sydnie Oviedo M.D. Brandon Banuelos M.D. Alysa Major, [employer] [facility] [facility]PER[facility] Carmen Park, [employer] [facility]PER[facility] Jennifer Eaton, [employer] [facility] Parul Esteves, [facility] PROGRESS NOTE 09/16/24 History of present illness: The patient is a 67 y.o. male Who presented to [facility] due to some new worsening shortness of breath over the last 2 days. He was transferred to [facility] for further workup. Patient had noted [...] lymphoma. The patient's path was reviewed at [facility], the tumor was deemed to be EBV positive, immunohistochemistry staining is consistent with Hodgkin's lymphoma. The tumors are CD15, CD30 GATA3 and Murray positive. These tumors are negative for all [...] end. Monitor neuropathy closely. Wallace Prado M.D. [facility] [address] [place], [place] [address], [place] [address] [address] [facility]06-20-2025 Instructions* Patient Instructions* Wallace Prado MD - 09/16/2024 2:45 PM EDT Okay to treat. Wallace Prado MD 09/16/2024 F/u in 6-8 weeks. documented in this encounterCleveland Clinic Marymount Hospital06-19-2025 History of Present illness Narrative* Elizabeth Burton [...] discharged in stable condition documented in this encounterCleveland Clinic Marymount Hospital06-17-2025 History of Present illness Narrative* Frank Morley RN - 09/13/2024 11:00 AM EDT Port draw complete per protocol. documented in this encounterCleveland Clinic Marymount Hospital06-06-2025 History of Present illness Narrative* Elizabeth Burton RN - 09/02/2024 1:00 PM EDT The patient is here for Fulphila injection Vitals are WNL Patient denies side effects from yesterday's treatment Fulphila injection admit sub q Patient tolerated well Patient discharged home in stable condition documented in this encounterCleveland Clinic Marymount Hospital06-05-2025 History of Present illness Narrative* Sonya Reyes [...] Patient discharged in stable condition to [facility] transporter. documented in this encounterCleveland Clinic Mary[facility] Hospital05-28-2025 History of Present illness Narrative* Nahomy Patel RN - 08/24/2024 11:53 AM EDT Images from the original note were not included. Spoke with [employer], verbalized understanding. MD Nahomy Molina RN [facility] sent. Previous Messages ----- Message ----- From: [...] week. Any other orders? documented in this encounterCleveland Clinic Marymount Hospital05-20-2025 History of Present illness Narrative* Lisa Reyes [...] tolerates well DC in stable condition to [employer] vehicle documented in this encounterCleveland Clinic Marymount Hospital05-09-2025 History of Present illness Narrative* Elizabeth Burton RN - 08/05/2024 1:30 PM EDT The patient is here for Fulphila injection Vitals are WNL Patient denies side effects from yesterday's treatment Fulphila injection admit sub q Patient tolerated well Patient discharged home in stable condition documented in this encounterCleveland Clinic Marymount Hospital05-08-2025 History of Present illness Narrative* DIA Cueto - 08/04/2024 1:12 PM EDT Pleasant pt easily engages with sba underwriter. Pt using quad cane, had been using walker. Pt relayed he has been feeling/doing well. Pt purchased a pedal tabular typist & has been using daily. Pt expressed appreciation for use of [employer] services. Pt does not endorse any current needs; opportunity provided to ask questions, pt does not endorse any at this time, sba underwriter available & following. documented in this encounterCleveland Clinic Mary[facility] Hospital05-08-2025 History of Present illness Narrative* Frank Morley [...] in stable ambulatory condition. documented in this encounterCleveland Clinic Marymount Hospital05-06-2025 History of Present illness Narrative* Frank Morley RN - 08/02/2024 11:00 AM EDT Port draw complete per protocol. documented in this encounterCleveland Clinic Mary[facility] Hospital04-25-2025 History of Present illness Narrative* Zeina Calzada RN - 07/22/2024 2:30 PM EDT Patient presents for Fulphila injection. Education provided. Fulphila injection administered SQ to right arm. Tolerated well. Appointment calendar provided. Discharged in stable condition to transportation. documented in this encounterCleveland Clinic Marymount Hospital04-24-2025 History of Present illness Narrative* Sonya Reyes RN - 07/21/2024 11:04 AM EDT Patient is here in follow up for Hodgkin lymphoma with Dr. Prado. OK to proceed with full treatment today. Continue to follow up as planned. Patient discharged in stable condition to [facility] for [facility]. Treatment calendar updated with new follow up appointment and provided to patient. documented in this encounterCleveland Clinic Marymount Hospital04-24-2025 History of Present illness Narrative* DIA Cueto - 07/21/2024 10:44 AM EDT Met with pt & his sister in law [employer]. Pt relayed he has used [employer], currently using [employer]. Educated on [employer], reviewed brochure, pt said he would be over income. Provided [employer]. Pt does not endorse any current needs/concerns. Opportunity provided to ask questions, pt does not endorse any at this time; sba underwriter available & following. documented in this encounterCleveland Clinic Marymount Hospital04-24-2025 History of Present illness Narrative* Elizabeth Burton [...] discharged in stable condition documented in this encounterCleveland Clinic Marymount Hospital04-24-2025 History of Present illness Narrative* Wallace Prado MD - 07/21/2024 10:15 AM EDT Images from the original note were not included. [facility] Rajendra Manrique M.D. Aimee Anderson M.D. Fili Bolanos M.D. Briseida Sena M.D. Chantale Melvin, [facility] Morales Joseph, [facility] Gala Trotter, [facility] Angelika Jones, [facility] ROSIBEL Javier M.D. Santiago Nicolas M.D. Dale Bro M.D. Brandon Banuelos M.D. Alysa Major, [facility] Carmen Xavier, [facility] Jennifer Eaton, [facility] Parul Esteves, [facility] PROGRESS NOTE 07/21/24 History of present illness: The patient is a 67 y.o. male Who presented to [facility] due to some new worsening shortness of breath over the last 2 days. He was transferred to [facility] for further workup. Patient had noted [...] show any malignant cells at this time. [facility] had pleural fluid drained, which did not [...] or vomiting., Disp: 60 tablet, Rfl: 2 vaacfnuny-meovqyalpkoxzqm-mdutrspd-magnesium hydroxide-simethicone CMPD (MAGIC MOUTHWASH), Swish and spit [...] lymphoma. The patient's path was reviewed at [facility], the tumor was deemed to be EBV positive, immunohistochemistry staining is consistent with Hodgkin's lymphoma. The tumors are CD15, CD30 GATA3 and Murray positive. These tumors are negative for all [...] 2024 is 50-55 % Wallace Prado M.D. [facility] [address] [place] [address] documented in this encounterCleveland Clinic Marymount Hospital04-10-2025 History of Present illness Narrative* Sonya Reyes [...] infusion bay for treatment. documented in this encounterCleveland Clinic Marymount Hospital04-10-2025 History of Present illness Narrative* Nahomy Patel [...] provided. Echo ordered and will schedule at [facility] to next treatment. Port accessed per protocol. NS started at [facility]. IV premeds given and po benedryl. HE took 1000 mg of tylenol at home at 7 am so tylenol held at [facility]. Opdvio infused over one h our. Patient tolerated it well. Port flushed and needle removed. Discharge instructions reviewed. Patient discharged in stable condition. documented in this encounterCleveland Clinic Mary[facility] Hospital04-10-2025 History of Present illness Narrative* Wallace Prado MD - 07/07/2024 9:00 AM EDT Images from the original note were not included. [facility] Rajendra Manrique M.D. Aimee Anderson M.D. Fili Bolanos M.D. Briseida Sena M.D. Chantale Melvin, [facility] Morales Joseph, [facility] [facility] SUPER[facility] Gala Trotter, [facility] Angelika Jones, [facility] ROSIBEL Javier M.D. Santiago Nicolas M.D. Dale Bro M.D. Brandon Banuelos M.D. Alysa Major, [facility] Carmen Park, [facility] Jennifer Eaton, [facility] Parul Esteves, [facility] PROGRESS NOTE 07/07/24 History of present illness: The patient is a 67 y.o. male Who presented to [facility] due to some new worsening shortness of breath over the last 2 days. He was transferred to [facility] for further workup. Patient had noted [...] a day., Disp: 90 capsule, Rfl: 1 oeosesdsi-ckgvqpbhndibmje-iavzbuch-magnesium hydroxide-simethicone CMPD (MAGIC MOUTHWASH), Swish and spit [...] lymphoma. The patient's path was reviewed at [facility], the tumor was deemed to be EBV positive, immunohistochemistry staining is consistent with Hodgkin's lymphoma. The tumors are CD15, CD30 GATA3 and Murray positive. These tumors are negative for all [...] treatment in 2 weeks. Wallace Prado M.D. [facility] [address] [place] [address] documented in this encounterCleveland Clinic Marymount Hospital04-10-2025 Instructions* Patient Instructions* Wallace Prado MD - 07/07/2024 9:00 AM EDT Okay to treat. Wallace Prado MD 07/07/2024 F/u in 2 weeks, to start avd/Opdivo documented in this encounterCleveland Clinic Marymount Hospital04-08-2025 History of Present illness Narrative* Lisa Reyes RN - 07/05/2024 12:00 PM EDT Port draw completed per protocol [facility]04-04-2025 History of Present illness Narrative* DIA Cueto - 07/01/2024 8:38 AM EDT Call received from pt sister in law [place], pt will be coming to [facility] 3x per week. Pt does not drive & sister with whom he is living works, other family not able to assist with 3x per wk transport, pt medical insurance does not cover transport services. Pt is able to independently enter/exit a vehicle. Educated on [facility] [employer] & informed sba underwriter would check drivers schedule to determine when transport services can begin. Scrap Burner spoke with [facility] coach tour driver & RN to adjust port draw times; [facility] Transport able to begin services Saturday 07/08. Call placed to sister in [employer] & informed. documented in this [facility]03-07-2025 History of Present illness Narrative* Nahomy Patel [...] MD Sent: 06/02/2024 7:37 PM EST To: [facility] SHANNOND-opjayne ordered. documented in this encounterCleveland Clinic Marymount Hospital03-06-2025 History of Present illness Narrative* Nahomy Patel RN - 06/02/2024 11:45 AM EST Port draw completed per protocol. documented [facility] this [facility]03-06-2025 History of Present illness Narrative* Sonya Reyes RN - 06/02/2024 11:41 AM EST Patient is seen in follow up with Dr. Prado today for Hodgkin's Lymphoma and to review PET scan and bone bx. He is accompanied by his [id number], Av[employer]. Received the following orders: Biopsy bony lesion in [facility] by IR. Flush port, CBC, CMP, ESR, PSA. F/u IN 5 weeks with port flush. Follow up scheduled on 07/07/[address] Prado. Order placed for bone biopsy to be completed at [facility]. Port draw completed today. AVS, PETscan/bone bx results and treatment calendar provided to patient. Patient discharged in stable condition to infusion nurse to have port draw completed. documented in this encounterCleveland Clinic Marymount Hospital03-06-2025 History of Present illness Narrative* Wallace Prado MD - 06/02/2024 11:15 AM EST Images from the original note were not included. [facility] Rajendra Manrique M.D. Aimee Anderson M.D. Fili Bolanos M.D. Briseida Sena M.D. Chantale Melvin, [facility] [place] [employer], [facility] Gala Sergo, [facility] Angelika Jones, [facility] ROSIBEL Javier M.D. Santiago Nicolas M.D. Dale Bro M.D. Brandon Banuelos M.D. Alysa Major, [facility] Carmen Park, [facility] Jennifer Eaton, [facility] Parul Esteves, [facility] PROGRESS NOTE 06/02/24 History of present illness: The patient is a 67 y.o. male Who presented to [facility] due to some new worsening shortness of breath over the last 2 days. He was transferred to [facility] for further workup. Patient had noted [...] total) by mouth nightly., Disp: , Rfl: giaenqkzb-oljrlkzvigdklkz-rufzensy-magnesium hydroxide-simethicone CMPD (MAGIC MOUTHWASH), Swish and spit [...] lymphoma. The patient's path was reviewed at [facility], the tumor was deemed to be EBV positive, immunohistochemistry staining is consistent with Hodgkin's lymphoma. The tumors are CD15, CD30 GATA3 and Murray positive. These tumors are negative for all [...] abnormal metabolic activity/uptake. Biopsy bony lesion in [facility] by IR. Flush port, CBC, CMP, ESR, PSA. F/u IN 5 weeks with port flush. If biopsy confirmed disease progression, plan to start nivolumab plus AVD. Wallace Prado M.D. [facility] [address] [place] [address] documented in this encounterCleveland Clinic Marymount Hospital03-06-2025 Instructions* Patient Instructions* Wallace Prado MD - 06/02/2024 11:15 AM EST Biopsy bony lesion in [facility] by IR. Flush port, CBC, CMP, ESR, PSA. F/u IN 5 weeks with port flush. documented in this encounterCleveland Clinic Marymount Hospital03-04-2025 History of Present illness Narrative* Quin Mas MD - 05/31/2024 9:10 AM EST Subjective Patient ID: Torsten Haywood is a 68 y.o. male who presents for Epistaxis (Nose Bleed) No further bleeding since last seen. Now on a lower dose of Eliquis. 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 Will likely need an anterior ethmoid ligation if has bleeding from the same site again. Helpful that on lower dose of eliquis documented in this encounterRusk Rehabilitation [id number] Noteecg PA Cardiology [facility] Subjective Torsten Haywood is a 68 [...] was admitted to the emergency room at [facility] with shortness of breath. Following investigations and transfer to [facility] he was found to have non-Hodgkin's lymphoma [...] is soft. Tenderness: There (more content not included)...[facility]02-05-2025 History of Present illness Narrative* Nahomy Patel RN - 05/04/2024 4:00 PM EST Images from the original note were not included. Spoke with [facility] in [place]. There is no gurantee a physician can perform an anterior ethmoid arterial ligation if he would need it. Spoke with Avni his sister and they will just keep referral to [facility] per Dr. Mas. [facility] consult cancelled. MD Nahomy Molina RN [facility] Previous Messages ----- Message ----- From: Nahomy Patel RN Sent: 04/28/2024 1:07 PM EST To: Wallace Prado MD Subject: nose bleeds He saw Dr. Mas ENT at [facility] for his nose bleeds and he did surgery to cauterize it but since he has to go back on eliquis he said it will likely bleed again and he will need an Anterior ethmoid arterial ligation done. Dr. Mas does not perform that and suggested patient go to [facility]. If possible they would to stay within [facility] and wondered if you knew of any ENT that could perform that procedure as Dr. Mas was not sure. Please advise documented in this encounterCleveland Clinic Marymount Hospital01-30-2025 History of Present illness Narrative* Nahomy Patel RN - 04/28/2024 2:25 PM EST Images from the original note were not included. Spoke with Avni referral entered for ENT [facility] at [facility]. Call placed to office to make sure that procedure can be done by the physicians there. Await call back. MD Nahomy Molina RN We can refer him to [facility]. Previous Messages ----- Message ----- From: Nahomy Patel RN Sent: 04/28/2024 1:07 PM EST To: Wallace Prado MD Subject: nose bleeds He saw Dr. Mas ENT at [facility] for his nose bleeds and he did surgery to cauterize it but since he has to go back on eliquis he said it will likely bleed again and he will need an Anterior ethmoid arterial ligation done. Dr. Mas does not perform that and suggested patient go to [facility]. If possible they would to stay within [facility] and wondered if you knew of any ENT that could perform that procedure as Dr. Mas was not sure. Please advise documented in this encounterCleveland Clinic Marymount Hospital01-29-2025 History of Present illness Narrative* Quin Mas [...] systolic heart failure (CMS/HCC) 07/12/2021 Coronary atherosclerosis ([facility]/HCC) 01/14/2017 Factor V Leiden mutation ([facility]/HCC) 12/28/2018 History of coronary artery bypass surgery 07/12/2021 Hodgkin lymphoma ([facility]/HCC) 10/02/2023 Hypertension ([facility]) 07/12/2021 Hypokalemia 10/03/2023 Hypomagnesemia 10/03/2023 Hyponatremia 10/03/2023 Implantable cardioverter-defibrillator (ICD) in situ 07/12/2021 Mass of lung 06/25/2023 Multifocal pneumonia 07/01/2023 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 [facility]still go to [facility] or if has a sig bleed. documented in this encounterRusk Rehabilitation [id number] Telephone encounter Note* Telephone Encounter - Elizabeth Mas - 04/25/2024 9:53 AM EST Called pt sister in law/she verbalized understanding. [facility] [id number] Miscellaneous Notes* Telephone Encounter - Elizabeth Mas - 04/25/2024 9:53 AM EST Called pt sister in law/she verbalized understanding. * Telephone Encounter - Quin Mas MD - 04/25/2024 9:25 AM EST yes * Telephone Encounter - Elizabeth Mas - 04/25/2024 8:41 AM EST Pt's sister n law called in. Can the pt put neosporin in his nostril with a Qtip? documented in this encounterNOMercy Hospital [id number] Telephone encounter Note* Telephone Encounter - Quin Mas MD - 04/25/2024 9:25 AM EST yes [facility] Work Phone: [phone]) 172-455501-27-2025 Telephone encounter Note* Telephone Encounter - Elizabeth Mas - 04/25/2024 8:41 AM EST Pt's sister n law called in. Can the pt put neosporin in his nostril with a Qtip? [facility] [id number] NotePatient Education - Text ENT Nosebleed, Adult [...] your nosebleed was caused by dryness, use sfgr-yhb-hbcrtks saline nasal spray or gel and a [...] provider. Document Revised: 03/25/2022 Document Reviewed: 03/25/2022 Lucky [employer] Patient Education ? 2023 [employer] 04-22-2024 NoteProgress Note-Physician Patient: TORSTEN HAYWOOD Age: [...] to Ambulatory Surgery Unit, and To home ).[facility] HospitalComment on above:Result Comment: Electronically Signed By: Eriberto Huff Jr., DO\.br\Date and Time Signed: 04/22/24 20:53 [id number] Telephone encounter Note* Telephone Encounter - Elizabeth Mas - 04/22/2024 10:54 AM EST Pt's sister in law called in. Torsten started with a nose bleed this am about 20 minutes ago. It is bleeding a good amount , running down his face. He has the nose clamp on as of now...... Dr Mas reviewed this and said for pt to go to [facility]. [facility] [id number] Miscellaneous Notes* Telephone Encounter - Elizabeth Mas - 04/22/2024 10:54 AM EST Pt's sister in law called in. Torsten started with a nose bleed this am about 20 minutes ago. It is bleeding a good amount , running down his face. He has the nose clamp on as of now...... Dr Mas reviewed this and said for pt to go to [facility]. documented in this encounterRusk Rehabilitation [id number] History of Present illness Narrative* Nahomy Patel RN - 04/07/2024 2:04 PM EST Patient saw Dr. Prado today for follow up. Orders received to repeat pet scan late 04/2024. F/u in early 05/2024 Patient given calendar, verbalized understanding of future appointments. documented in this encounterCleveland Clinic Marymount Hospital01-09-2025 History of Present illness Narrative* Wallace Prado MD - 04/07/2024 1:30 PM EST Images from the original note were not included. [facility] Rajendra Manrique M.D. Aimee Anderson M.D. Fili Bolanos M.D. Briseida Sena M.D. Chantale Melvin, 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 Morales Joseph, 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 Gala Trotter, STRUCTURAL MILL SUPERVISOR-[facility] Angelika Jones, STRUCTURAL MILL SUPERVISOR-[facility] ROSIBEL Javier M.D. Santiago Nicolas M.D. Dale Bro M.D. Brandon Banuelos M.D. Alysa Major, 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 Carmen [place], 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 Jennifer Eaton, 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 Parul Esteves, STRUCTURAL MILL SUPERVISOR-[facility] PROGRESS NOTE 04/07/24 History of present illness: The patient is a 67 y.o. male Who presented to [facility] due to some new worsening shortness of breath over the last 2 days. He was transferred to [facility] for further workup. Patient had noted [...] taking: Reported on 04/07/2024), Disp: , Rfl: hhywcqrfg-xztlyehzxwjlekp-xhkbmjlo-magnesium hydroxide-simethicone CMPD (MAGIC MOUTHWASH), Swish and spit [...] lymphoma. The patient's path was reviewed at [facility], the tumor was deemed to be EBV positive, immunohistochemistry staining is consistent with Hodgkin's lymphoma. The tumors are CD15, CD30 GATA3 and Murray positive. These tumors are negative for all other markers tested. Patient has a normal CD4: CD8 ratio. I discussed the results with patient's POA, Joana [id number]. Prior to admission the patient was maintaining [...] review PET scan results. Wallace Prado M.D. [facility] [address] [place] [address] [facility]01-09-2025 Instructions* Patient Instructions* Wallace Prado MD - 04/07/2024 1:30 PM EST Repeat pet scan late 04/2024 F/u in early 05/[address] [facility]12-06-2024 History of Present illness Narrative* Nahomy Patel RN - 03/04/2024 1:57 PM EST Patient saw Dr. Prado today for follow up. Orders received to hold tx for now. Biopsy bone lesions. Referral to rad/onc. F/u in 4-5 weeks. Patient given calendar, verbalized understanding of future appointments. documented in this [facility]12-06-2024 History of Present illness Narrative* Wallace Prado MD - 03/04/2024 1:30 PM EST Images from the original note were not included. [facility] Rajendra Manrique M.D. Aimee Anderson M.D. Fili Bolanos M.D. Briseida Sena M.D. Chantale Melvin, [facility] Morales Joseph, [facility] Gala Trotter, [facility] Angelikakaylyn Jones, [facility] ROSIBEL Javier M.D. Santiago Nicolas M.D. Dale Bro M.D. Brandon Banuelos M.D. Alysa Major, [facility] Carmen Xavier, [facility] Angelito, [facility] Parul Esteves, [facility] PROGRESS NOTE 03/04/24 History of present illness: The patient is a 67 y.o. male Who presented to [facility] due to some new worsening shortness of breath over the last 2 days. He was transferred to [facility] for further workup. Patient had noted [...] show any malignant cells at this time. [facility] had pleural fluid drained, which did not [...] a day., Disp: 90 capsule, Rfl: 1 cvbwkpccd-ncpopczumzeiqoo-zqtmkbri-magnesium hydroxide-simethicone CMPD (MAGIC MOUTHWASH), Swish and spit [...] lymphoma. The patient's path was reviewed at [facility], the tumor was deemed to be EBV positive, immunohistochemistry staining is consistent with Hodgkin's lymphoma. The tumors are CD15, CD30 GATA3 and Murray positive. These tumors are negative for all other markers tested. Patient has a normal CD4: CD8 ratio. I discussed the results with patient's POA, Joana [id number]. Prior to admission the patient was maintaining [...] F/u in 4-5 weeks. Wallace Prado M.D. [facility] [address] [place] [address] documented in this encounterWashington County Tuberculosis HospitalCytonics12-06-2024 Instructions* Patient Instructions* Wallace Prado MD - 03/04/2024 1:30 PM EST Hold tx for now. Biopsy bone lesions. Referral to rad/onc. F/u in 4-5 weeks. documented in this encounterCleveland Clinic Marymount Hospital11-25-2024 NoteUT Cardiology - [facility] Subjective Torsten Haywood is a [...] was admitted to the emergency room at [facility] with shortness of breath. Following investigations and transfer to [facility] he was found to have non-Hodgkin's lymphoma [...] No tenderness. Abdominal: Gene (more content not included)...[facility]11-25-2024 History of Present illness Narrative* Quin Mas MD - 02/22/2024 10:00 AM EST Images from the original note were not included. Subjective Patient ID: Torsten Haywood is a 68 y.o. male who presents for Epistaxis (Nose Bleed) (Left side packed in [facility] ER 02/17) Pt reports he started [...] the restof the week. [facility] go [place] [facility] if bleeds overnight. Will likely need OR if repacked. No strenuous activity or nose blowing. Keep head elevated one week documented in this encounterRusk Rehabilitation [id number] History of Present illness Narrative* DIA Cueto - 02/11/2024 11:59 PM EST Pleasant pt easily engages with sba underwriter, pt relayed he has been doing well. Siblings/in-laws providenatural supports. Continues with [facility]. Opportunity provided to ask questions, pt does not endorse any at this time; sba underwriter available & following. documented in this encounterCleveland Clinic Marymount Hospital11-14-2024 History of Present illness Narrative* Nahomy Patel [...] in stable ambulatory condition. documented in this encounterCleveland Clinic Marymount Hospital11-12-2024 History of Present illness Narrative* Elizabeth Burton [...] eliquis for cardiac reasons documented in this encounterCleveland Clinic Marymount Hospital11-07-2024 NotePatient Education Nutrition BMI for Adults Body [...] for Disease Control and Prevention: cdc.gov ??? [place] Heart Association: heart.org ??? National Heart, Lung, and Blood [place]: nhlbi.nih.gov This information is not intended to replace advice given to you by your health care provider. Make sure you discuss any questions you have with your health care provider. Document Revised: 12/04/2022 Document Reviewed: 11/27/2022 Lucky [employer]yster Patient Education ? 2023 [employer] 01-28-2024 History of Present illness Narrative* Frank [...] in stable ambulatory condition. documented in this encounterAccess Hospital DaytonSelo Reserva10-21-2024 History of Present illness Narrative* Sonya Reyes [...] as nurses. Sheverbalized understanding. Shahida Gooden P [facility] Nurses His sister called and said on 12/31/23 at the bottom of the treatment calendar in [facility] it says hegot a full chemo and he did not. She would like that to be corrected. documented in this encounterCleveland Clinic Marymount Hospital10-18-2024 History of Present illness Narrative* Frank Morley [...] in stable ambulatory condition. documented in this [facility]10-18-2024 Miscellaneous Notes* Telephone Encounter - Shahida Gooden - 01/15/2024 8:51 AM EDT PET/CT SCHEDULED [place] [facility] 02/26/24 10:45 AM ARRIVAL ORDER AND CLINICALS FAXED TO [place] 01/15/24 documented in this encounterCleveland Clinic Marymount Hospital10-18-2024 Telephone encounter Note* Telephone Encounter - Shahida Giacomo - 01/15/2024 8:51 AM EDT PET/CT SCHEDULED AT [facility] 02/26/24 10:45 AM ARRIVAL ORDER AND CLINICALS FAXED TO [place] 01/15/24 [facility]10-17-2024 History of Present illness Narrative* DIA Cueto - 01/14/2024 4:01 PM EDT Met with pt & his sister in law Avni, pt has been doing well, feels weak at times but is stayingmobile & moving frequently. Opportunity provided to ask questions, pt does not endorse any at this time; sba underwriter available & following. documented in this encounterCleveland Clinic Marymount Hospital10-17-2024 History of Present illness Narrative* Frank Morley [...] Pt and family v/u documented in this encounterCleveland Clinic Marymount Hospital10-17-2024 History of Present illness Narrative* Wallace Prado MD - 01/14/2024 9:30 AM EDT Images from the original note were not included. [facility] Rajendra Manrique M.D. Aimee Anderson M.D. Fili Bolanos M.D. Briseida Sena M.D. Chantale Melvin, [facility] Morales Joseph, [facility] Gala Trotter, [facility] Angelika Jones, [facility] ROSIBEL Javier M.D. Santiago Nicolas M.D. Dale Bro M.D. Brandon Banuelos M.D. Alysa Major, [facility] Carmenmirosl[place], [facility] Jennifer Eaton, [facility] Parul Esteves, [facility] PROGRESS NOTE 01/14/24 History of present illness: The patient is a 67 y.o. male Who presented to [facility] due to some new worsening shortness of breath over the last 2 days. He was transferred to [facility] for further workup. Patient had noted [...] show any malignant cells at this time. [facility] had pleural fluid drained, which did not [...] or vomiting., Disp: 60 tablet, Rfl: 2 fpyzfnorz-mgksajtizrxxqmd-jgaqpyli-magnesium hydroxide-simethicone CMPD (MAGIC MOUTHWASH), Swish and spit [...] lymphoma. The patient's path was reviewed at [facility], the tumor was deemed to be EBV positive, immunohistochemistry staining is consistent with Hodgkin's lymphoma. The tumors are CD15, CD30 GATA3 and Murray positive. These tumors are negative for all other markers tested. Patient has a normal CD4: CD8 ratio. I discussed the results with patient's POA, Joana [id number]. Prior to admission the patient was maintaining [...] 03/04 to review results. Wallace Prado M.D. [facility] [address] [place] [address] [facility]10-17-2024 Instructions* Patient Instructions* Wallace Prado MD - 01/14/2024 9:30 AM EDT Okay to treat. Wallace Prado MD 01/14/2024 Plan to hold tx after C7. PET scan end of 01/2025 F/u 03/04 to review results. documented in this [facility]10-03-2024 History of Present illness Narrative* Sonya Reyes [...] condition to private vehicle. documented in this encounterCleveland Clinic Marymount Hospital09-19-2024 History of Present illness Narrative* DIA Cueto - 12/17/2023 1:32 PM EDT Pleasant pt easily engages with sba underwriter. Pt relayed he is getting stronger, will using walker; encouraged continued use of walker for safety. Pt relayed family provides good support; opportunity provided to ask questions, pt does not endorse any at this time, sba underwriter available & following. documented in this encounterCleveland Clinic Marymount Hospital09-19-2024 History of Present illness Narrative* Zeina Calzada [...] condition to family member. documented in this encounterCleveland Clinic Marymount Hospital09-05-2024 History of Present illness Narrative* Sonya Reyes RN - 12/03/2023 10:11 AM EDT Patient is here in follow up for Hodgkin's lymphoma with Dr. Prado. Orders received that patient is: Okay to treat. Wallace Prado MD 12/03/2023 CT scan early 12/2023 F/u with nj 01/13, to review results and continue tx. Patient will receive Brentuximab only for now. CT orders placed and provided to patient along with number for central scheduling to set up testing. Treatment calendar provided and patient discharged in stable condition to infusion bay for treatment. documented in this encounterCleveland Clinic Marymount Hospital09-05-2024 History of Present illness Narrative* Elizabeth Burton [...] discharged in stable condition documented in this encounterCleveland Clinic Marymount Hospital09-05-2024 History of Present illness Narrative* Wallace Prado MD - 12/03/2023 9:30 AM EDT Images from the original note were not included. [facility] Rajendra Manrique M.D. Aimee Anderson M.D. Fili Bolanos M.D. Briseida Sena M.D. Chantale Melvin, 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 Morales Joseph, 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 Gala Trotter, 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 Angelika Jones, 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 ROSIBEL Javier M.D. Santiago Nicolas M.D. Dale Bro M.D. Brandon Banuelos M.D. Alysa Major, 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 Carmen Park, 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 DONNA Eaton APRN-CNP [facility] PROGRESS NOTE 12/03/23 History of present illness: The patient is a 67 y.o. male Who presented to [facility] due to some new worsening shortness of breath over the last 2 days. He was transferred to [facility] for further workup. Patient had noted [...] show any malignant cells at this time. [facility] had pleural fluid drained, which did not [...] or vomiting., Disp: 60 tablet, Rfl: 2 pkfkarujz-nxbjxkbqivbujtu-jsiuuxpc-magnesium hydroxide-simethicone CMPD (MAGIC MOUTHWASH), Swish and spit [...] lymphoma. The patient's path was reviewed at [facility], the tumor was deemed to be EBV positive, immunohistochemistry staining is consistent with Hodgkin's lymphoma. The tumors are CD15, CD30 GATA3 and Murray positive. These tumors are negative for all other markers tested. Patient has a normal CD4: CD8 ratio. I discussed the results with patient's POA, Joana [id number]. Prior to admission the patient was maintaining [...] discussed with patient's sister. Wallace Prado M.D. [facility] [address] [place] [address] documented in this encounterWashington County Tuberculosis HospitalCytonics09-05-2024 Instructions* Patient Instructions* Wallace Prado MD - 12/03/2023 9:30 AM EDT Okay to treat. Wallace Prado MD 12/03/2023 CT scan early 12/2023 F/u with me 01/13, to review results and continue tx. documented in this encounterCleveland Clinic Marymount Hospital09-05-2024 Miscellaneous Notes* Addendum Note - Wallace Prado MD - 12/03/2023 9:30 AM EDTAddended by: WALLACE PRADO on: 12/03/2023 10:33 AM Modules accepted: Orders documented in this encounterCleveland Clinic Marymount Hospital09-05-2024 Note* Addendum Note - Wallace Prado MD - 12/03/2023 9:30 AM EDTAddended by: WALLACE PRADO on: 12/03/2023 10:33 AM Modules accepted: Orders [facility]08-22-2024 History of Present illness Narrative* DIA Cueto - 11/19/2023 12:50 PM EDT Met with pt sister in law Gould, provided address to [facility] to [facility] of information to utilize [facility]. Scrap Burner met pleasant pt who informs he continues with [facility], pt using exercise bike at home home as well; support & encouragement provided. Pt does not endorse any current needs; opportunity provided to ask questions, pt does not endorse any at this time, sba underwriter available & following. documented in this encounterCleveland Clinic [facility] Hospital08-22-2024 History of Present illness Narrative* Frank Morley [...] in stable ambulatory condition. documented in this encounterCleveland Clinic Marymount Hospital08-08-2024 History of Present illness Narrative* DIA Cueto - 11/05/2023 11:10 AM EDT Met with pt who relayed he is still feeling weak due to 12 day hospital admission, he is currently utilizing [facility]. Pt using walker assist. Pt staying with his sister in [place]. Pt said he really like using the exercise bike when at [facility]. Discussed outpt therapy as option post [facility] services. Support & encouragement provided. Pt does not endorse any current needs; opportunity providedto ask questions, pt does not endorse any at this time; sba underwriter available & following. documented in this encounterCleveland Clinic Marymount Hospital08-08-2024 History of Present illness Narrative* Elizabeth Burton [...] discharged in stable condition documented in this encounterCleveland Clinic Marymount Hospital07-25-2024 History of Present illness Narrative* Sonya Reyes [...] for brentuximab only today. documented in this encounterCleveland Clinic Marymount Hospital07-25-2024 History of Present illness Narrative* Norman Sosa [...] walker in stable condition. documented in this encounterCleveland Clinic Marymount Hospital07-25-2024 History of Present illness Narrative* Wallace Prado MD - 10/22/2023 9:30 AM EDT Images from the original note were not included. [facility] Rajendra Manrique M.D. Aimee Anderson M.D. Fili Bolanos M.D. Briseida Sena M.D. Chantale Melvin, 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 Morales Joseph, 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 Gala Trotter, 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 Angelika Jones, 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 ROSIBEL Javier M.D. Santiago Nicolas M.D. Dale Bro M.D. Brandon Banuelos M.D. Alysa Major, [facility] Carmen Park, [facility] Jennifer Eaton, [facility] Parul Esteves, [facility] PROGRESS NOTE 10/22/23 History of present illness: The patient is a 67 y.o. male Who presented to [facility] due to some new worsening shortness of breath over the last 2 days. He was transferred to [facility] for further workup. Patient had noted [...] show any malignant cells at this time. [facility] had pleural fluid drained, which did not [...] mouth in the morning., Disp: , Rfl: bppvgzvuz-rbwalekdhrkeyut-nlfhezhe-magnesium hydroxide-simethicone CMPD (MAGIC MOUTHWASH), Swish and spit [...] lymphoma. The patient's path was reviewed at [facility], the tumor was deemed to be EBV positive, immunohistochemistry staining is consistent with Hodgkin's lymphoma. The tumors are CD15, CD30 GATA3 and Murray positive. These tumors are negative for all other markers tested. Patient has a normal CD4: CD8 ratio. I discussed the results with patient's POA, Joana [id number]. Prior to admission the patient was maintaining [...] with in 6-8 weeks. Wallace Prado M.D. [facility] [address] [place] [address] documented in this encounterWashington County [facility] HospitalCytonics07-25-2024 Instructions* Patient Instructions* Wallace Prado MD - 10/22/2023 9:30 AM EDT Continue brentuximab only for now. F/u in early 11/2023. documented in this encounterCleveland Clinic Marymount Hospital07-22-2024 NotePatient Education Nutrition BMI for Adults What [...] numbers. This can be done either in [place] (U.[place] or metric measurements. Note that charts and online BMI calculators are available to help you find your BMI quickly and easily without having to do these calculations yourself. To calculate your BMI in [place] ([place] measurements: 1. Measure your weight in [...] for Disease Control and Prevention: www.cdc.gov ? [place] Heart Association: www.heart.org ? National Heart, Lung, and Blood [place]: www.nhlbi.nih.gov Summary ? Body mass index (BMI) is a number that is calculated from a person's weight and height. ? BMI may help estimate how much of a person's weight is composed of fat. BMI can help identify those who may be at higher risk for certain medical problems. ? BMI can be measured using Andorran measurements or metric measurements. ? BMI charts are used to identify whether you are underweight, normal weight, overweight, or obese. This information is not intended to replace advice given to you by your health care provider. Make sure you discuss any questions you have with your health care provider. Document Revised: 12/07/2019 Document Reviewed: 10/14/2019 ElseAnghami Patient Education ? 2022 [employer] 10-13-2023 History of Present illness Narrative* DIA Cueto - 10/13/2023 3:07 PM EDT Call received from pt sister in law Avni inquiring on ramp for home where pt is staying; provided contact info for DME's. documented in this encounterCleveland Clinic Mary[facility] Hospital07-11-2024 History of Present illness Narrative* Nahomy Patel [...] up in two weeks. documented in this encounterCleveland Clinic Marymount Hospital07-10-2024 History of Present illness Narrative* Nahomy Patel RN - 10/07/2023 3:03 PM EDT Patient's sister called to cancel treatment tomorrow. He is still admitted with diarrhea, nausea and not eating. He has a follow up in two weeks with Dr. Prado documented in this encounterCleveland Clinic Marymount Hospital07-05-2024 Miscellaneous Notes* Telephone Encounter - Sean Ward [...] mouth, very lightheaded) Protocols used: Cancer - Sdwefrag-M-IS Per protocol Patient referred to the ED for assessment. They will go to [facility]. documented in this encounterCleveland Clinic Marymount Hospital07-05-2024 Telephone encounter Note* Telephone Encounter - Sean Ward RN - 10/02/2023 5:51 PM EDT Diarrhea for the second full day. Vary watery. Started imodium. Stated that his stools have turned black this morning. 32 os a day of Gatorade for the last 2 days. [place] cancer. States he aches all over. No fever. Taking Imodium. Stomach pain. 2 chewable Pepto-Bismol tablets yesterday and 2 tablets today. . Reason for Disposition [1] Drinking very little AND [2] dehydration suspected (e.g., no urine > 12 hours, very dry mouth, very lightheaded) Protocols used: Cancer - Jlrwutef-Y-BQ Per protocol Patient referred to the ED for assessment. They will go to [facility]. [facility]07-05-20[facility] Miscellaneous Notes* Telephone Encounter - Tracy Whatley - 10/02/2023 5:44 PM EDT Error Please documented in this encounterCleveland Clinic Marymount Hospital07-05-2024 Telephone encounter Note* Telephone Encounter - Tracy Whatley - 10/02/2023 5:44 PM EDT Error Please [facility]07-03-2024 Miscellaneous Notes* Telephone Encounter - Dwight Kirkpatrick [...] past 4 weeks) Protocols used: Cancer - Ztheowsb-K-QY * Telephone Encounter - Dwight Kirkpatrick RN - 09/30/2023 6:48 PM EDT Called child nutrition assistant provider Chantale Melvin CNP and reviewed above patient information. Chantale recommends patient can take Immodium per package instructions. Chantale also advises Patient should make sure to drink fluids and eat when he can. If the diarrhea doesn't slow down by tomorrow then patient should call child nutrition assistant provider for further instructions. * Telephone Encounter - Dwight Kirkpatrick RN - 09/30/2023 6:48 PM EDT Called Joana and provided advice as recommended above by child nutrition assistant provider Chantale. Joana agreeable topass along the advice and will call back if needed. documented in this encounterCleveland Clinic Marymount Hospital07-03-2024 Telephone encounter Note* Telephone Encounter - Dwight Kirkpatrick RN - 09/30/2023 6:48 PM EDT ----- Message from Andree sent at 09/30/2023 5:53 PM EDT ----- Contact is calling to let nurse know that patient is having diarrhea Emergency Contact is not with patient wants to do a 3 way call [facility]07-03-[facility] Telephone encounter Note* Telephone Encounter - Dwight [...] past 4 weeks) Protocols used: Cancer - Knwssuuw-B-YS [facility]07-03-2024 Telephone encounter Note* Telephone Encounter - Dwight Kirkpatrick RN - 09/30/2023 6:48 PM EDT Called child nutrition assistant provider Chantale Melvin CNP and reviewed above patient information. Chantale recommends patient can take Immodium per package instructions. Chantale also advises Patient should make sure to drink fluids and eat when he can. If the diarrhea doesn't slow down by tomorrow then patient should call child nutrition assistant provider for further instructions. [facility] CampusGastro[facility] [phone] Telephone encounter Note* Telephone Encounter - Dwight Kirkpatrick RN - 09/30/2023 6:48 PM EDT Called Joana and provided advice as recommended above by child nutrition assistant provider Chantale. Joana agreeable topass along the advice and will call back if needed. [facility] CampusGastro[facility] [phone] History of Present illness Narrative* Frank Morley [...] dition with treatment calendar. documented in this encounterCleveland Clinic Marymount Hospital06-26-2024 History of Present illness Narrative* Nahomy Patel RN - 09/23/2023 10:02 AM EDT Labs routed to Dr. Prado to review for chemo tomorrow. documented in this encounterCleveland Clinic Marymount Hospital06-13-2024 History of Present illness Narrative* Nahomy Patel [...] understanding of future appointments. documented in this encounterCleveland Clinic Marymount Hospital06-13-2024 History of Present illness Narrative* Sonya Reyes [...] use. Patient discharged [facility] to [facility]. documented in this encounterCleveland Clinic Mary[facility] Hospital06-13-2024 History of Present illness Narrative* Wallace Prado MD - 09/10/2023 9:45 AM EDT Images from the original note were not included. [facility] Rajendra Manrique M.D. Aimee Anderson M.D. Fili Bolanos M.D. Briseida Sena M.D. Chantale Melvin, [facility] Morales Joseph, [facility] Gala Trotter, [facility] Angelika Jones, [facility] ROSIBEL Javier M.D. Santiago Nicolas M.D. Dale Bro M.D. Brandon Banuelos M.D. Alysa Major, [facility] [place], [facility] Jennifer Eaton, [facility] Parul Esteves, [facility] PROGRESS NOTE 09/10/23 History of present illness: The patient is a 67 y.o. male Who presented to [facility] due to some new worsening shortness of breath over the last 2 days. He was transferred to [facility] for further workup. Patient had noted [...] lymphoma. The patient's path was reviewed at [facility], the tumor was deemed to be EBV positive, immunohistochemistry staining is consistent with Hodgkin's lymphoma. The tumors are CD15, CD30 GATA3 and Murray positive. These tumors are negative for all other markers tested. Patient has a normal CD4: CD8 ratio. I discussed the results with patient's POA, Joana [id number]. Prior to admission the patient was maintaining [...] with in 4 weeks. Wallace Prado M.D. [facility] [address] [place] [address] documented in this encounterCleveland Clinic Marymount Hospital06-13-2024 Instructions* Patient Instructions* Wallace Prado MD - 09/10/2023 9:45 AM EDT Okay to treat. Wallace Prado MD 09/10/2023 C3 will be brentuximab/AVD. F/u every 2-4 weeks. documented in this encounterCleveland Clinic Marymount Hospital06-13-2024 History of Present illness Narrative* Nahomy Patel RN - 09/10/2023 7:46 AM EDT Labs scanned into media and routed to Dr. Prado to review. documented [facility]06-07-[facility] History of Present illness Narrative* Frank Morley [...] 08/26. Please advise. Thanks. documented in this [facility]05-30-2024 History of Present illness Narrative* Sonya Reyes [...] provided. Patient discharged in stable condition to [facility] for treatment. documented in this encounterCleveland Clinic [facility] Hospital05-30-2024 History of Present illness Narrative* Norman Sosa [...] w/c in stable condition. documented in this encounterCleveland Clinic Marymount Hospital05-30-2024 History of Present illness Narrative* DONNA Tran - 08/27/2023 11:30 AM EDT Images from the original note were not included. [facility] [address] [place] [id number] 08/27/23 Chief Complaint Patient presents with Follow-up History of Present Illness: The patient is a 67 y.o. male Who presented to [facility] due to some new worsening shortness of breath over the last 2 days. He was transferred to [facility] for further workup. Patient had noted [...] of brentuximab. Patient currently resides at the [facility]. Due to poor performance status AVD has [...] having pain. Doing physical therapy daily at [facility]. He reports he can stand and walk short distances with his therapist. Past Medical History: Diagnosis Date Coronary artery disease Hypertension Past Surgical History: Procedure Laterality Date BRONCHOSCOPY N/A 06/26/2023 Performed by Hammad Salinas MD at [facility] CORONARY ARTERY BYPASS GRAFT W/ CARDIAC VALVE SURGERY CYSTECTOMY ENDOBRONCHIAL ULTRASOUND BRONCHOSCOPY Right 06/26/2023 Performed by Hammad Salinas MD at [facility] SPLENECTOMY No Known Allergies Medication List [...] total sedation time of 30 minutes of yetd-ka-tpfg moderate sedation was provided by the same [...] to work with physical therapy At the [facility] where he resides and comes in to [...] this note were generated using voice recognition [employer] dictation software. Although every effort was made to ensure the accuracy of this automated cable placer, some errors in cable placer may have occurred DONNA Tran 08/27/[address] [facility]05-30-2024 Instructions* Patient Instructions* DONNA Tran - 08/27/2023 11:30 AM EDT Labs reviewed, ok for treatment, Brentuximab only Please give patient hydration today along with treatment Follow up prior to cycle 3 documented in this encounterCleveland Clinic Marymount Hospital05-17-2024 History of Present illness Narrative* DIA Cueto - 08/14/2023 12:02 PM EDT Faxed completed & physician signed [facility] fund application along with copy ofdrivers license to [email or web address]. documented in this [facility]05-16-20[facility] History of Present illness Narrative* DIA Cueto - 08/13/2023 11:35 AM EDT Met with pt & his sister in law Avni, pt said he is feeling better today. He is unsure how much longer he will be at [facility]. Informed pt & Avni sba underwriter will fax [employer] Care fund application upon physician signature. Opportunity provided to ask questions, pt does notendorse any at this time; sba underwriter available & following. documented in this encounterCleveland Clinic Marymount Hospital05-16-2024 History of Present illness Narrative* Nahomy Patel [...] diarrhea is under control. documented in this encounterCleveland Clinic Marymount Hospital05-16-2024 History of Present illness Narrative* Frank Morley [...] stable condition with sister. documented in this encounterCleveland Clinic Marymount Hospital05-16-2024 History of Present illness Narrative* Wallace Prado MD - 08/13/2023 9:15 AM EDT Images from the original note were not included. [facility] Rajendra Manrique M.D. Aimee Anderson M.D. Fili Bolanos M.D. Briseida Sena M.D. Chantale Melvin, [facility] [place] [employer], [facility] Gala Sergo, [facility] Angelika Jones, [facility] ROSIBEL Javier M.D. Santiago Nicolas M.D. Dale Bro M.D. Brandon Banuelos M.D. Alysa Major, [facility] Carmen Park, [facility] Jennifer Eaton, [facility] Parul Esteves, [facility] PROGRESS NOTE 08/13/23 History of present illness: The patient is a 67 y.o. male Who presented to [facility] due to some new worsening shortness of breath over the last 2 days. He was transferred to [facility] for further workup. Patient had noted [...] show any malignant cells at this time. [facility] had pleural fluid drained, which did not [...] Eosinophils Absolute 0.3 0.0 - 0.4 X10E9/L [place]field Cells 1+ (A) NONE^NONE Fragment 1+ (A) [...] lymphoma. The patient's path was reviewed at [facility], the tumor was deemed to be EBV positive, immunohistochemistry staining is consistent with Hodgkin's lymphoma. The tumors are CD15, CD30 GATA3 and Murray positive. These tumors are negative for all other markers tested. Patient has a normal CD4: CD8 ratio. I discussed the results with patient's POA, Joana [id number]. Prior to admission the patient was maintaining [...] improved significantly consider B/ABD. Wallace Prado M.D. [facility] [address] [place] [address] [facility]05-16-2024 Instructions* Patient Instructions* Wallace Prado MD - 08/13/2023 9:15 AM EDT Give IVF, brentuximab only. Check C DIFF and GI panel in hospital. F/u in 2 weeks. Labs two weeks. documented in this [facility]05-10-2024 History of Present illness Narrative* Frank Morley RN - 08/07/2023 10:15 AM EDT Port accessed and de accessed per protocol. documented in this [facility]05-09-2024 History of Present illness Narrative* [...] Prado MD WEEKLY LABS documented in this encounterCleveland Clinic Marymount Hospital05-09-2024 History of Present illness Narrative* Nahomy Patel RN - 08/06/2023 9:58 AM EDT WEEKLY LABS SCANNED INTO MEDIA AND ROUTED TO DR. PRADO TO REVIEW. documented in this encounterCleveland Clinic Marymount Hospital05-03-2024 History of Present illness Narrative* DIA Cueto - 07/31/2023 1:36 PM EDT Introduced self & rolf of SW to pt & his sister in law Avni. Pt has been at [facility] for rehab since [place] from [facility]. Pt needed to use facilities. Educated Avni on [employer], provided brochure & application & provided [employer]. Pt unsure how much longer he will at [facility]; encouraged sister in law to ask [facility] to arrange for C at [place] from [facility]. Provided Avni with writers contact information; sba underwriter available & following. documented in this encounterCleveland Clinic Marymount Hospital05-03-2024 History of Present illness Narrative* Nahomy Patel [...] HE will have weekly labs at the [facility] and follow with Dr. Prado in two weeks prior to next treatment. IV removed. Patient discharged in stable condition. documented in this encounterCleveland Clinic Marymount Hospital05-03-2024 History of Present illness Narrative* Deirdre Mcdaniels [...] level [] Language barrier. Patient speaks: [] [employer] present. [] Anxiety [] Cognitive barriers [...] of Treatment: [] Oral, patient's home [] [facility] [] [facility] ([place]) [] [facility] [] [facility] [x] [facility] [] [facility] [] [facility] Inpatient Unit [] [facility] Inter[facility] [] [facility] [] [facility] [] [facility] [] [facility] [] [facility] Inpatient [facility] [] [facility] Interventional Radiology [x] The patient was instructed [...] Medications [x] The patient was instructed to belt picker prescriptions prior to starting treatment. 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 documented in this encounterCleveland Clinic [facility] Hospital05-02-2024 History of Present illness Narrative* Nahomy Patel RN - 07/30/2023 7:41 AM EDT LABS SCANNED INTO MEDIA FOR C1 BRENTUXIMAB documented in this encounterCleveland Clinic Marymount Hospital05-01-2024 History of Present illness Narrative* Nahomy Patel RN - 07/29/2023 11:49 AM EDT Cxr routed to Dr. Prado to review. documented in this [facility]05-01-2024 History of Present illness Narrative* Nahomy Patel RN - 07/29/2023 10:24 AM EDT Images from the original note were not included. MD Nahomy Molina RN C1D15 should be brentuximab/AVD. Previous Messages ----- Message ----- From: Nhaomy Patel RN Sent: 07/29/2023 9:27 AM EDT To: Wallace Prado MD Subject: chemo His port insertion has been moved up to 08/04. For C1D15 on August 12, do you still want him to just getBrentuximab or ABVD? documented in this [facility]04-30-2024 History of Present illness Narrative* [...] port on 08/28/23. Thanks. documented in this encounterCleveland Clinic Marymount Hospital04-30-2024 History of Present illness Narrative* Nahomy Patel RN - 07/28/2023 12:55 PM EDT Spoke with POA. [facility]. Chemo teachingand brentuximab scheduled for Thursday. Port placement 08/16. Dr. Prado updated. Message sent to Dr. Fairbanks see if he can get C1D15 Brentuximab one day early due to conflict with POA. documented in this encounterCleveland Clinic Marymount Hospital04-26-2024 History of Present illness Narrative* Nahomy Patel RN - 07/24/2023 2:57 PM EDT Script faxed to [facility] [place] to start high dose dexamethasone and weekly lab orders. Phone number provided for port placement and coordinate with POA documented in this encounterCleveland Clinic Marymount Hospital04-24-2024 Miscellaneous Notes* Telephone Encounter - Melinda Camacho RN - 07/22/2023 3:18 PM EDT Patient's sister Joana (POA) called inquiring if his labs have come back from [facility] and the other ones done in house. Joana stated that she spoke with Gala about this while inpatient and it was agreed she could call for the results since his follow up is not until 08/[address] Prado in [place]. Joana is requesting a call back from a provider to discuss results/ next steps. Can be reached at [phone] (primary contact) * Telephone Encounter - DONNA Mercado - 07/22/2023 3:18 PM EDT Inquiring about biopsy results, no final pathology back from [place] yet Avni (sister in law of patient) confirmed PET scan is set up for 08/07/23 Updated on follow up appointment 08/13/23 at 915am in [place] with Dr. Prado She asked if anyone will call results ahead, explained that we would prefer to discuss results and treatment plan at office visit. If there is anything urgent about test results, (requiring return tohospital,etc), she and patient will be notified. She verbalized understanding. - DONNA Mercado 07/22/23 3:57 PM documented in this encounterC[facility] Telephone encounter Note* Telephone Encounter - Melinda Camacho RN - 07/22/2023 3:18 PM EDT Patient's sister Joana (POA) called inquiring if his labs have come back from [facility] and the other ones done in house. Joana stated that she spoke with Gala about this while inpatient and it was agreed she could call for the results since his follow up is not until 08/[address] Prado in [place]. Joana is requesting a call back from a provider to discuss results/ next steps. Can be reached at [phone] (primary contact) [facility]04-24-[facility] Telephone encounter Note* Telephone Encounter - DONNA Mercado - 07/22/2023 3:18 PM EDT Inquiring about biopsy results, no final pathology back from [place] yet Avni (sister in law of patient) confirmed PET scan is set up for 08/07/23 Updated on follow up appointment 08/13/23 at 915am in [place] with Dr. Prado She asked if anyone will call results ahead, explained that we would prefer to discuss results and treatment plan at office visit. If there is anything urgent about test results, (requiring return tohospital,etc), she and patient will be notified. She verbalized understanding. - DONNA Mercado 07/22/23 3:57 PM [employer] Work Phone: 1(841) 125-110904-23-2024 History of Present illness Narrative* Nahomy Patel RN - 07/21/2023 4:42 PM EDT Images from the original note were not included. MD Nahomy Molina RN We can order a port. Path showed possible Hodgkin's lymphoma but path was reviewed at [facility] or [facility]. Previous Messages ----- Message ----- From: Nahomy [...] 4:12 PM EDT To: Wallace Prado MD; [facility] Onc Scheduling; * Subject: follow up Patient was seen at: [facility] Dx: Lymphoma - Hodgkin's versus T-cell - biopsy prelim was called to us 07/15, they are sending to [facility] Plan: PET scan, HIV/ hepatitis results (added on at [facility]), port placement will be needed outpatient Needs: I ordered PET scan, I gave [id number] Avni instructions to call and schedule it. Patient will need a follow-up with Dr. Prado after PET scan and biopsy results, timing at her discretion. He has been discharged to [facility]. Please call [id number] Avni for appointments so she can help coordinate. [phone] Gala Bhat documented in this encounterCleveland Clinic [facility]04-23-2024 History of Present illness Narrative* Nahomy Patel RN - 07/21/2023 12:55 PM EDT His pet ct is 08/07/23, Follow up will be 08/13/23. Let me know if you want the port ordered now or wait until you see him first? ===View-only below this line=== ----- Message ----- From: Gala Trotter APRN-ANA Sent: 07/16/2023 4:12 PM EDT To: Wallace Prado MD; [facility] Scheduling; * Subject: follow up Patient was seen at: [facility] Dx: Lymphoma - Hodgkin's versus T-cell - biopsy prelim was called to us 07/15, they are sending to [facility] Plan: PET scan, HIV/ hepatitis results (added on at [facility]), port placement will be needed outpatient Needs: I ordered PET scan, I gave [id number] Avni instructions to call and schedule it. Patient will need a follow-up with Dr. Prado after PET scan and biopsy results, timing at her discretion. He has been discharged to [facility]. Please call [id number] Avni for appointments so she can help coordinate. [phone] Gala Bhat documented in this encounterCleveland Clinic [facility]04-19-2024 Miscellaneous Notes* Telephone Encounter - Shahida Giacomo - 07/17/2023 9:37 AM EDT SCHEDULED AT [facility] 08/07/23 10:45 AM ARRIVAL FAXED ORDER AND CLINICALS TO [place] ON 07/17/23 documented in this encounterCleveland Clinic [facility]04-19-2024 Telephone encounter Note* Telephone Encounter - Shahida Gooden - 07/17/2023 9:37 AM EDT SCHEDULED AT [facility] 08/07/23 10:45 AM ARRIVAL FAXED ORDER AND CLINICALS TO [place] ON 07/17/23 [facility]04-15-2024 Miscellaneous Notes* Telephone Encounter - Malinda Moreira - 07/13/2023 10:57 AM EDT ----- Message from Rey Yee MD sent at 07/13/2023 10:28 AM EDT ----- This patient was seen in consultation at [facility]. Following hospital discharge she does not require a follow-up visit in our office as he follows with the [facility] group Thank you documented in this encounterPro[facility] Telephone encounter Note* Telephone Encounter - Malinda Moreira - 07/13/2023 10:57 AM EDT ----- Message from Rey Yee MD sent at 07/13/2023 10:28 AM EDT ----- This patient was seen in consultation at [facility]. Following hospital discharge she does not require a follow-up visit in our office as he follows with the [facility] group Thank you [facility] + Plan note Future Appointments Appointment Date:06/25/2023 07:00:00 AM Scheduled Provider:Antoine Hobbs MD Location:[facility] Appointment Type:FM Open Appointment Date:08/04/2023 08:00:00 AM Scheduled [facility]: [facility] Type: Medicare Wellness [facility] assessment information available [facility] Diagnosis Internal nasal lesion- Primary [...] anticoagulants Chronic rhinitis documented in this encounter [facility] HealthcareEvaluation note* Diagnosis Frequent nosebleeds- Primary documented [...] nodes (CMS-HCC)- Primary [facility] Diagnosis Hodgkin lymphoma of intrapelvic lymph nodes, unspecified Hodgkin lymphoma type (CMS-HCC)- 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) documented in this encounter [facility]* Diagnosis Hodgkin lymphoma of intrapelvic lymph nodes, unspecified Hodgkin lymphoma type (CMS-HCC)- Primary Diarrhea of presumed infectious origin documented [facility]* 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 [facility] in [facility]* 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 [facility] in this encounter [facility]* 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 Hodgkin lymphoma of intrapelvic lymph nodes, unspecified Hodgkin lymphoma type (CMS-HCC) documented in this encounter [facility]* Diagnosis 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 [facility] in [facility] encounter [facility]* 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 [facility] in this encounter [facility]* Diagnosis Hodgkin lymphoma, unspecified Hodgkin lymphoma type, unspecified body region (CMS-HCC)- 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 Intestinal infection, enteritis due to Dear[place] virus documented in this encounter [facility]* 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 documented in [facility] encounter [facility]* 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 documented in this encounter [facility]* 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 documented in this encounter [facility]* Diagnosis Hodgkin lymphoma, unspecified Hodgkin lymphoma type, unspecified body region (CMS-HCC)- Primary documented in this encounter [facility]* Diagnosis Hodgkin lymphoma, unspecified [...] to Norovirus Intestinal infection, enteritis due to Dear[place] virus Hodgkin lymphoma of intrapelvic lymph nodes, unspecified Hodgkin lymphoma type (CMS-HCC) documented [facility] this encounter [facility] 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 documented in this encounter [facility]* 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 documented in this encounter [facility]* Diagnosis Hodgkin lymphoma of intrapelvic lymph nodes, unspecified Hodgkin lymphoma type (CMS-HCC)- Primary Bone lesion Disorder of bone and cartilage, unspecified documented in this encounter [facility]* Diagnosis Hodgkin lymphoma, unspecified Hodgkin lymphoma type, unspecified body region (CMS-HCC)- Primary documented in this encounter [facility]* Diagnosis Recurrent epistaxis- Primary [facility] Diagnosis Screening for prostate cancer- Primary Special screening for malignant neoplasm of prostate 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) documented in this encounter [facility]* 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 documented in this encounter [facility]* Diagnosis Hodgkin lymphoma, unspecified Hodgkin lymphoma type, unspecified body region (CMS-HCC)- Primary Bone lesion Disorder of bone and cartilage, unspecified documented in this encounter [facility]* 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 documented in this encounter [facility]* Diagnosis Hodgkin lymphoma, unspecified Hodgkin lymphoma type, unspecified body region (CMS-HCC) documented in this encounter [facility]* Diagnosis Hodgkin lymphoma, unspecified Hodgkin lymphoma type, unspecified body region (CMS-HCC) documented in this encounter [facility]* Diagnosis Hodgkin lymphoma, unspecified Hodgkin lymphoma type, unspecified body region (CMS-HCC)- 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) Essential (primary) hypertension Unspecified essential hypertension Fatigue, unspecified type Malaise Other malaise and fatigue documented in this encounter [facility]* 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 Hodgkin lymphoma, unspecified Hodgkin lymphoma type, unspecified body region (CMS-HCC) Essential (primary) hypertension Unspecified essential hypertension Fatigue, unspecified type Malaise Other malaise and fatigue documented in this encounter [facility]* Diagnosis Hodgkin lymphoma, unspecified Hodgkin lymphoma type, unspecified body region (CMS-HCC)- Primary Hodgkin lymphoma of intrapelvic lymph nodes, unspecified Hodgkin lymphoma type (CMS-HCC) Encounter for monitoring cardiotoxic drug therapy documented [facility]* 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 Hodgkin lymphoma, unspecified Hodgkin lymphoma type, unspecified body region (CMS-HCC) Paroxysmal atrial fibrillation (CMS-HCC) Atrial fibrillation Factor V Leiden mutation Primary hypercoagulable state History of splenectomy Other acquired absence of organ documented in this encounter [facility]* 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 documented in this encounter [facility]* 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 Hodgkin lymphoma, unspecified Hodgkin lymphoma type, unspecified body region (CMS-HCC) Essential (primary) hypertension Unspecified essential hypertension Fatigue, unspecified type Malaise Other malaise and fatigue documented in this encounter [facility]* 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 Hodgkin lymphoma, unspecified Hodgkin lymphoma type, unspecified body region (CMS-HCC) documented in this encounter [facility]* Diagnosis Nodular sclerosis Hodgkin [...] nodes (CMS-HCC)- Primary [facility] this encounter [facility]* 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 Hodgkin lymphoma, unspecified Hodgkin lymphoma type, unspecified body region (CMS-HCC) Essential (primary) hypertension Unspecified essential hypertension Fatigue, unspecified type Malaise Other malaise and fatigue documented [facility]* 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 documented in this encounter [facility]* 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 Hodgkin lymphoma, unspecified Hodgkin lymphoma type, unspecified body region (CMS-HCC) Essential (primary) hypertension Unspecified essential hypertension Fatigue, unspecified type Malaise Other malaise and fatigue documented in this encounter [facility]* Diagnosis Hodgkin lymphoma, unspecified Hodgkin lymphoma type, unspecified body region (CMS-HCC) documented in this encounter [facility]* 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) Procedures TX INJECTION, NIVOLUMAB TX DOXORUBIC HCL 10 MG VL CHEMO TX VINBLASTINE SULFATE INJ TX DACARBAZINE 100 MG INJ TX DEXAMETHASONE SODIUM PHOS [place] [address] [place] [address] [address] [place] [address] Phone: tel: fax: [facility] [address] [place] [phone] Phone: tel: fax: Referral IDStatusReasonStart DateExpiration DateVisits RequestedVisits [id number] [facility] Summary Purpose Family History No Family [...] unspecified Hodgkin lymphoma type, unspecified body region ([facility]) Procedures CT abdomen and pelvis with contrast Wallace Prado MD [address] [place] [address] Referral IDStatusReasonStart DateExpiration DateVisits RequestedVisits [id number] /[id number] / ProceduresReferred By ContactReferred To ContactRadiology Diagnoses Hodgkin lymphoma, unspecified Hodgkin lymphoma type, unspecified body region ([facility]) Procedures CT chest with contrast Wallace Prado MD [address] [place] [address] Referral IDStatusReasonStart DateExpiration DateVisits RequestedVisits [id number] Review/[id number] / ProceduresReferred By ContactReferred To Contact Diagnoses 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 ([facility]) Wallace Prado MD [address] [place] [address] Referral IDStatusReasonStart DateExpiration DateVisits RequestedVisits [id number] / ProceduresReferred By Contact Referred To ContactRadiology Diagnoses Lymphoma, unspecified body region, unspecified lymphoma type ([facility]) Procedures [place] [address] [place] [address] [address] [place] [address] Referral IDStatusReasonStart DateExpiration DateVisits RequestedVisits [id number] Review/ Additional Source Comments (unrecognized sect ion and content) No Status Records FoundNo Status Records FoundNo Status Records FoundNo Status Records FoundNo Status Records FoundNo Status Records FoundNo Status Records FoundNo Status Records FoundNo Status Records FoundNo Status Records Found INFORMATION SOURCE (unrecogn ized section and content) DATE CREATED AUTHOR 09/18/2017 [facility] DATE CREATED AUTHOR AUTHOR'S ORGANIZ ATION 04/21/2021 [facility] DATE CREATED AUTHOR AUTHOR'S ORGANIZ ATION 02/10/2022 [facility] DATE CREATED AUTHOR AUTHOR'S ORGANIZ ATION 08/07/2023 [facility] DATE CREATED AUTHOR AUTHOR'S ORGANIZ ATION 02/05/2024 [facility] DATE CREATED AUTHOR AUTHOR'S ORGANIZ ATION 05/07/2024 [facility] DATE CREATED AUTHOR AUTHOR'S ORGANIZ ATION 06/01/2024 [facility] DATE CREATED AUTHOR AUTHOR'S ORGANIZ ATION 06/18/2024 [facility] DATE CREATED AUTHOR AUTHOR'S ORGANIZ ATION 01/12/2025 [facility] DATE CREATED AUTHOR AUTHOR'S ORGANIZ ATION 01/18/2025 [facility] Goals (unrecognized section and content) Goals may be documented in a n alternate section No data available for this section Patient Care team informatio n (unrecognized section and content) Team MemberRelationshipSpecialtyStart DateEnd Date Antoine Hobbs MD [address] [place] [address] PCP - GeneralFamily Aeqgajdr99/25/24Team MemberRelationshipSpecialtyStart Date End Date Antoine Hobbs MD [address] [place] [address] PCP - GeneralFamily Ylacgesr88/25/24Team MemberRelationshipSpecialtyStart Date End Date Antoine Hobbs MD [address] [place] [address] PCP - GeneralFamily Uidfmfxi13/17/24Team MemberRelationshipSpecialtyStart Date End Date Antoine Hobbs MD [address] [place] [address] PCP - GeneralFamily Wcntsums79/17/24Team MemberRelationshipSpecialtyStart Date End Date Antoine Hobbs MD [address] [place] [address] PCP - GeneralFamily Iplmkgqu27/25/24Team MemberRelationshipSpecialtyStart Date End Date Antoine Hobbs MD [address] [place] [address] PCP - Generalmily Ychmdwih82/25/24Team MemberRelationshipSpecialtyStart Date End Date Antoine Hobbs MD [address] [place] [address] PCP - Generalmily Jdssefsb73/25/24Team MemberRelationshipSpecialtyStart Date End Date Antoine Hobbs MD [address] [place] [address] PCP - Generalmily Gmnczkdc59/25/24Team MemberRelationshipSpecialtyStart Date End Date Antoine Hobbs MD [address] [place] [address] PCP - Generalmily Hzyohhcb40/17/24Team MemberRelationshipSpecialtyStart Date End Date Antoine Hobbs MD [address] [place] [address] PCP - Generalmily Vnvxwbfw03/17/24Team MemberRelationshipSpecialtyStart Date End Date Antoine Hobbs MD [address] [place] [address] PCP - Generalmily Tnzzynlc38/13/20Team MemberRelationshipSpecialtyStart Date End Date Antoine Hobbs MD [address] [place] [address] PCP - GeneralFamily Mjfsheyv11/13/20Team MemberRelationshipSpecialtyStart Date End Date Antoine Hobbs MD [address] [place] [address] PCP - GeneralFamily Khbrkpzn21/13/20Team MemberRelationshipSpecialtyStart Date End Date Antoine Hobbs MD [address] [place] [address] PCP - GeneralFamily Mblecrev46/13/20Team MemberRelationshipSpecialtyStart Date End Date Antoine Hobbs MD [address] [place] [facility] [place] [address] PCP - GeneralFamily Vkatsqxh97/13/20Team MemberRelationshipSpecialtyStart Date End Date Antoine Hobbs MD [address] [place] [facility] [place] [address] PCP - GeneralFamily Tsdnexhf96/13/20Team MemberRelationshipSpecialtyStart Date End Date Wallace Prado MD [address] [place] [address] PCP - GeneralHematology07/28/23Team MemberRelationshipSpecialtyStart DateEnd Date Wallace Prado MD [facility] [place] [address] PCP - GeneralHematology07/28/23Team MemberRelationshipSpecialtyStart DateEnd Date Wallace Prado MD [facility] [place] [address] PCP - GeneralHematology07/28/23Team MemberRelationshipSpecialtyStart DateEnd Date Wallace Prado MD [facility] [place] [address] PCP - GeneralHematology07/28/23Team MemberRelationshipSpecialtyStart DateEnd Date Wallace Prado MD [address] [place] [address] PCP - GeneralHematology07/28/23Team MemberRelationshipSpecialtyStart DateEnd Date Wallace Prado MD [facility] [place] [address] PCP - GeneralHematology07/28/23Team MemberRelationshipSpecialtyStart DateEnd Date No Pcp, [place] [address] PCP - GeneralFamily Medicine08/12/23Team MemberRelationshipSpecialtyStart DateEnd Date Wallace Prado MD [facility] [place] [address] PCP - GeneralHematology07/28/23Team MemberRelationshipSpecialtyStart DateEnd Date No Pcp, [place] [address] PCP - GeneralFamily Medicine08/12/23Team MemberRelationshipSpecialtyStart DateEnd Date No Pcp, [place] [address] PCP - GeneralFamily Medicine08/12/23Team MemberRelationshipSpecialtyStart DateEnd Date No Pcp, [place] [address] PCP - GeneralFamily Medicine08/12/23Team MemberRelationshipSpecialtyStart DateEnd Date No Pcp, [place] [address] PCP - GeneralFamily Medicine08/12/23Team MemberRelationshipSpecialtyStart DateEnd Date No Pcp, [place] [address] PCP - GeneralFamily Medicine08/12/23Team MemberRelationshipSpecialtyStart DateEnd Date No Pcp, [place] [address] PCP - GeneralFamily Medicine08/12/23Team MemberRelationshipSpecialtyStart DateEnd Date No Pcp, [place] [address] PCP - GeneralFamily Medicine08/12/23Team MemberRelationshipSpecialtyStart DateEnd Date No Pcp, [place] [address] PCP - GeneralFamily Medicine08/12/23Team MemberRelationshipSpecialtyStart DateEnd Date No Pcp, [place] [address] PCP - GeneralFamily Medicine08/12/23Team MemberRelationshipSpecialtyStart DateEnd Date No Pcp, [place] [address] PCP - GeneralFamily Medicine08/12/23Team MemberRelationshipSpecialtyStart DateEnd Date No Pcp, [place] [address] PCP - GeneralFamily Medicine08/12/23Team MemberRelationshipSpecialtyStart DateEnd Date No Pcp, [place] [address] PCP - GeneralFamily Medicine08/12/23Team MemberRelationshipSpecialtyStart DateEnd Date No Pcp, [place] [address] PCP - GeneralFamily Medicine08/12/23Team MemberRelationshipSpecialtyStart DateEnd Date No Pcp[place] [address] PCP - GeneralFamily Medicine08/12/23Team MemberRelationshipSpecialtyStart DateEnd Date Wallace Prado MD [address] [place] [address] PCP - GeneralHematology10/02/23Team MemberRelationshipSpecialtyStart DateEnd Date Wallace Prado MD [address] [place] [address] PCP - GeneralHematology10/02/23Team MemberRelationshipSpecialtyStart DateEnd Date Wallace Prado MD [address] [facility] [address] [place] [address] PCP - GeneralHematology10/02/23Team MemberRelationshipSpecialtyStart DateEnd Date Wallace Prado MD [address] [facility] [address] [place] [address] PCP - GeneralHematology/08/20Team MemberRelationshipSpecialtyStart DateEnd Date Wallace Prado MD [address] [facility] [address] [place] [address] PCP - GeneralHematology10/02/23Team MemberRelationshipSpecialtyStart DateEnd Date Wallace Prado MD [address] [facility] [address] [place] [address] PCP - GeneralHematology10/02/23Team MemberRelationshipSpecialtyStart DateEnd Date Wallace Prado MD [address] [facility] [address] [place] [address] PCP - GeneralHematology10/02/23Team MemberRelationshipSpecialtyStart DateEnd Date Wallace Prado MD [address] [facility] [address] [place] [address] PCP - GeneralHematology/08/20Team MemberRelationshipSpecialtyStart DateEnd Date Wallace Prado MD [address] [facility] [address] [place] [address] PCP - GeneralHematology7/24Team MemberRelationshipSpecialtyStart DateEnd Date Wallace Prado MD [address] [facility] [place] [address] PCP - GeneralHematology7/24Team MemberRelationshipSpecialtyStart DateEnd Date Wallace Prado MD [address] [facility] [address] [place] [address] PCP - GeneralHematology7/24Team MemberRelationshipSpecialtyStart DateEnd Date Wallace Prado MD [address] [facility] [address] [place] [address] PCP - GeneralHematology/24Team MemberRelationshipSpecialtyStart DateEnd Date Wallace Prado MD [address] [facility] [address] [place] [address] PCP - GeneralHematology/08/20Team MemberRelationshipSpecialtyStart DateEnd Date Wallace Prado MD [address] [facility] [address] [facility] [place] [address] PCP - GeneralHematology7/24Team MemberRelationshipSpecialtyStart DateEnd Date Wallace Prado MD [address] [facility] [address] [place] [address] PCP - GeneralHematology7/24Team MemberRelationshipSpecialtyStart DateEnd Date Wallace Prado MD [address] [facility] [address] [place] [address] PCP - GeneralHematology7/5/24Team MemberRelationshipSpecialtyStart DateEnd Date Wallace Prado MD [address] [facility] [address] [place] [address] PCP - GeneralHematology10/02/23Team MemberRelationshipSpecialtyStart DateEnd Date Wallace Prado MD [address] [facility] [address] [place] [address] PCP - GeneralHematology10/02/23Team MemberRelationshipSpecialtyStart DateEnd Date Walalce Prado MD [address] [facility] [place] [address] PCP - GeneralHematology10/02/23Team MemberRelationshipSpecialtyStart DateEnd Date Wallace Prado MD [address] [facility] [address] [place] [address] PCP - GeneralHematology10/02/23Team MemberRelationshipSpecialtyStart DateEnd Date Antoine Hobbs MD [address] [place] [address] PCP - GeneralFamily Qjhlqesf01/17/24Team MemberRelationshipSpecialtyStart Date End Date Antoine Hobbs MD [address] [place] [address] PCP - GeneralFamily Kefxznjn57/25/24Team MemberRelationshipSpecialtyStart Date End Date Antoine Hobbs MD [address] [place] [address] PCP - GeneralFamily Xglkxzqz24/25/24Team MemberRelationshipSpecialtyStart Date End Date Antoine Hobbs MD [address] [place] [address] PCP - GeneralFamily Nqpowlkh13/17/24Team MemberRelationshipSpecialtyStart Date End Date Antoine Hobbs MD [address] [place] [address] PCP - GeneralFamily Pwsnnfpg02/17/24Team MemberRelationshipSpecialtyStart Date End Date Antoine Hobbs MD [address] [place] [address] PCP - Generalmily Ovbnzuic24/17/24Team MemberRelationshipSpecialtyStart Date End Date Antoine Hobbs MD [address] [place] [address] PCP - GeneralFamily Gtljwxmk44/17/24Team MemberRelationshipSpecialtyStart Date End Date Antoine Hobbs MD [address] [place] [address] PCP - GeneralFamily Vqlimsyz01/17/24Team MemberRelationshipSpecialtyStart Date End Date Antoine Hobbs MD [address] [place] [address] PCP - GeneralFamily Cqvraump64/17/24Team MemberRelationshipSpecialtyStart Date End Date Antoine Hobbs MD [address] [place] [address] PCP - GeneralFamily Wgeierog67/17/24Team MemberRelationshipSpecialtyStart Date End Date Antoine Hobbs MD [address] [place] [address] PCP - GeneralFamily Lgbdyoxs08/17/24Team MemberRelationshipSpecialtyStart Date End Date Antoine Hobbs MD [address] [place] [address] PCP - GeneralFamily Wsctivbv54/17/24Team MemberRelationshipSpecialtyStart Date End Date Antoine Hobbs MD [address] [place] [address] PCP - GeneralFamily Okjwbsyg58/17/24Team MemberRelationshipSpecialtyStart Date End Date Antoine Hobbs MD [address] [place] [address] PCP - GeneralFamily Qossbsjf03/17/24Team MemberRelationshipSpecialtyStart Date End Date Antoine Hobbs MD [address] [place] [address] PCP - GeneralFamily Wlydzqhn10/17/24Team MemberRelationshipSpecialtyStart Date End Date Antoine Hobbs MD [address] [place] [address] PCP - GeneralFamily Paexjawa34/17/24Team MemberRelationshipSpecialtyStart Date End Date Antoine Hobbs MD [address] [place] [address] PCP - GeneralFamily Hfbrxcwr09/17/24Team MemberRelationshipSpecialtyStart Date End Date Antoine Hobbs MD [address] [place] [address] PCP - Generalmily Uwnhqrzp90/17/24Team MemberRelationshipSpecialtyStart Date End Date Antoine Hobbs MD [address] [place] [address] PCP - Generalmily Zjbnuvlc04/17/24Team MemberRelationshipSpecialtyStart Date End Date Antoine Hobbs MD [address] [place] [address] PCP - Generalmily Rrclazhb96/17/24Team MemberRelationshipSpecialtyStart Date End Date Antoine Hobbs MD [address] [place] [address] PCP - GeneralFamily Uasffpyy51/17/24Team MemberRelationshipSpecialtyStart Date End Date Antoine Hobbs MD [address] [place] [address] PCP - GeneralFamily Peurlvpu05/17/24Team MemberRelationshipSpecialtyStart Date End Date Antoine Hobbs MD [address] [place] [address] PCP - GeneralFamily Biekzkfx66/17/24Team MemberRelationshipSpecialtyStart Date End Date Antoine Hobbs MD [address] [place] [address] PCP - GeneralFamily Xozvjlks23/17/24Team MemberRelationshipSpecialtyStart Date End Date Antoine Hobbs MD [address] [place] [address] PCP - Generalmily Fwajpvjb25/17/24Team MemberRelationshipSpecialtyStart Date End Date Antoine Hobbs MD [address] [place] [address] PCP - Generalmily Fpmmmpbl94/17/24Team MemberRelationshipSpecialtyStart Date End Date Antoine Hobbs MD [address] [place] [address] PCP - Generalmily Pstnwlhj05/17/24Team MemberRelationshipSpecialtyStart Date End Date Antoine Hobbs MD [address] [place] [address] PCP - GeneralFamily Lqkjptos16/17/24Team MemberRelationshipSpecialtyStart Date End Date Antoine Hobbs MD [address] [place] [address] PCP - GeneralFamily Iubliqiv11/17/24Team MemberRelationshipSpecialtyStart Date End Date Antoine Hobbs MD [address] [place] [address] PCP - [facility] Kcolqhju69/17/24Team MemberRelationshipSpecialtyStart Date End Date Antoine Hobbs MD [address] [facility] [address] [address] [facility]02/14/24Team MemberRelationshipSpecialtyStart Date End Date Antoine Hobbs MD [address] [place] [id number] PCP - 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) Procedures TX INJECTION, NIVOLUMAB TX DOXORUBIC HCL 10 MG VL CHEMO TX VINBLASTINE SULFATE INJ TX DACARBAZINE 100 MG INJ TX DEXAMETHASONE SODIUM PHOS TX PALONOSETRON HCL Wallace Prado MD [address] [place] [address] [address] [place] [address] Phone: tel: fax: Neela L [facility] - Medical Oncology [address] [place] [phone] Phone: tel: fax: Referral IDStatusReasonStart DateExpiration DateVisits RequestedVisits [id number]rvMryoqc AVDReasonCommentsInjectionFulphilaReasonCommentsChemotherapyOpdivo, AVDReason CommentsChemotherapyOpdivo AVDReasonCommentsInjectionFulphilaReasonComments ChemotherapyOpdivo and AVDReasonCommentsChemotherapyOpdivo/AVDReasonComments Outpatient InfusionbrentuximabSpecialtyDiagnoses / ProceduresReferred By Contact Referred To Contact 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) Procedures TX DOXORUBIC HCL 10 MG VL CHEMO TX VINBLASTINE SULFATE INJ TX DACARBAZINE 100 MG INJ TX BRENTUXIMAB VEDOTIN INJ TX PALONOSETRON HCL TX DEXAMETHASONE SODIUM PHOWallace Ramirez MD [address] [facility] [address] [place] [address] Phone: tel: fax: [facility] - Medical Oncology [address] [place] [phone] Phone: tel: fax: Referral IDStatusReasonStart DateExpiration DateVisits RequestedVisits [id number]/25/[id number]jm BrentuximabSpecialtyDiagnoses / ProceduresReferred By ContactReferred To Contact 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) Procedures TX DOXORUBIC HCL 10 MG VL CHEMO TX VINBLASTINE SULFATE INJ TX DACARBAZINE 100 MG INJ TX BRENTUXIMAB VEDOTIN INJ TX PALONOSETRON HCL TX DEXAMETHASONE SODIUM PHOS Wallace Prado MD [address] [facility] [address] [place] [address] [facility] [address] [place] [phone] ReasonCommentsChemotherapybrentuximabReasonCommentsOutpatient InfusionAVD + brentuximabReasonCommentsChemotherapyBrentuximabOutpatient Infusionhydration Referral IDStatusReasonStart DateExpiration DateVisits RequestedVisits [id number] Review/[id number] InfusionBrentuximabReasonCommentsOutpatient InfusionHydration/ brentuximabReason CommentsEpistaxis (Nose Bleed)Left side packed in [facility] ER 02/17ReasonComments Follow-upReasonOnset DateCommentsEpistaxis (Nose Bleed)04/22/2024ReasonComments Epistaxis (Nose Bleed)ReasonOnset UbykYjxnwrjbKwyjwtj54/24/2024Updated that final results are not back from [facility] yet,ReasonCommentsPatient Education Chemotherapy TeachingReasonCommentsChemotherapyC1 BrentuximabReasonComments Port/VAD CarePort flushReasonCommentsFollow-upReasonOnset DateCommentsDiarrhea 09/30/2023Having 8-10 diarrhea stools since last evening.ReasonOnset Date XisglrgkTujugioo39/05/2024ReasonOnset DateCommentsMed Spgwua534Reason CommentsPort/VAD CarePort drawReasonOnset DateCommentsMed Vbjjmm5706/10/2024Reason Onset DateCommentsMed Ofmwxp0006/13/20241402AjunrhFuaztnimFtrcignaukscV7 OpdivoReason CommentsPort/VAD CareCBC CMP Thyroid panelReasonCommentsPort/VAD CarePort draw ReasonOnset DateCommentsMed Gloqug6109/13/2024ReasonCommentsLabs OnlyCBC CMP ThyroidReasonCommentsPort/VAD CareCBC CMP TSHReasonCommentsMed Refill [...] BE BASED ON THE PRIMARY CLINICAL RECORDS. [facility] [employer] [facility]. provides no warranty or guarantee of the accuracy or completeness of information in this document.
== END 2025-03-06 07:56 | disposition home or self-care (01) ==
LOC: CARD 07:55
PROVIDERS: Visit Provider Internal Medicine Interventional Cardiology
DX: I50.32 Chronic diastolic (congestive) heart failure (principal)
CPT/HCPCS: 93306; 93356